=== PATIENT | male | born 1955 | race African-American/Black ===

== ENCOUNTER 2023-06-17 13:23 | Outpatient (OUT) | payer OTHER, MEDICARE, SELFPAY ==
[2023-06-17 14:21] LABS: Basophils Absolute Auto 0.1 10^3/uL (0.0-0.1); Basophils Percent Auto 1.2 % (0.2-2.0); Eosinophils Absolute Auto 0.2 10^3/uL (0.0-0.7); Eosinophils Percent Auto 3.6 % (0.9-7.0); Hematocrit 42.4 % (42.0-54.0); Hemoglobin 14.3 g/dL (14.0-18.0); Immature Granulocytes Abs Auto 0.01 10^3/uL (0.00-0.03); Immature Granulocytes Pct Auto 0.2 % (0.0-0.5); Lymphocytes Absolute Auto 2.1 10^3/uL (1.2-3.8); Mean Corpuscular HGB Conc 33.7 g/dL (29.9-35.2); Mean Corpuscular Hemoglobin 28.7 pg (25.9-34.0); Mean Corpuscular Volume 85.1 fL (80.0-94.0); Mean Platelet Volume 10.6 fL (9.5-13.5); Monocytes Absolute Auto 0.5 10^3/uL (0.3-0.8); Monocytes Percent Auto 7.9 % (1.7-12.0); Neutrophils Absolute Auto 3.1 10^3/uL (1.4-6.5); Neutrophils Percent Auto 52.1 % (43.0-75.0); Platelet Count 173 10^3/uL (150-450); Red Blood Count 4.98 10^6/uL (4.70-6.10); Red Cell Distribution Width 13.2 % (11.0-15.0); White Blood Count 5.9 10^3/uL (4.0-11.0)
[2023-06-17 15:13] LABS: Alanine Aminotransferase 35 U/L (16-63); Albumin Globulin Ratio 1.1; Albumin Level 4.1 g/dL (3.4-5.0); Alkaline Phosphatase 96 U/L (46-116); Anion Gap 13.3; Aspartate Amino Transferase 17 U/L (15-37); BUN Creatinine Ratio 14.7; Bilirubin Direct 0.2 mg/dL (0.0-0.2); Bilirubin Total 0.7 mg/dL (0.2-1.0); Calcium 9.3 mg/dL (8.5-10.1); Carbon Dioxide 29.7 mmol/L (21.0-32.0); Chloride 95 mmol/L (98-107); Chol HDL Ratio 2.5; Cholesterol 113 mg/dL (<=200); Estimated GFR (African America >60 (>=60); Estimated GFR (Non-African Ame 56 (>=60); Globulin 3.9 g/dL; Glucose 395 mg/dL (74-106); HDL Cholesterol 46 mg/dL (40-60); LDL Cholesterol Calculated 47.8 mg/dL; Sodium 134 mmol/L (136-145); Thyroid Stimulating Hormone 1.079 uIU/mL (0.358-3.740); Triglycerides 96 mg/dL (<=150); VLDL CHOLESTEROL 19.2 mg/dL
[2023-06-17 15:22] LABS: Estimated Average Glucose 318 mg/dL; Glycohemoglobin A1C 12.7 % (4.5-6.2)
== END 2023-06-17 13:24 | disposition home or self-care (01) ==
LOC: LAB 13:26
PROVIDERS: PCP Family Medicine; Visit Provider Family Medicine
DX: E11.65 Type 2 diabetes mellitus with hyperglycemia (principal); I10 Essential (primary) hypertension; Z79.899 Other long term (current) drug therapy; E55.9 Vitamin D deficiency, unspecified; E66.9 Obesity, unspecified; Z68.30 Body mass index [BMI] 30.0-30.9, adult
CPT/HCPCS: 36415; 80048; 80061; 80076; 82043; 82306; 83036; 84443; 85025

== ENCOUNTER 2023-07-16 18:13 | Observation (INO) | payer OTHER, MEDICARE, SELFPAY ==
[2023-07-16] VITALS (9 sets, daily range): BP systolic 111–184; BP diastolic 58–90; PULSE 70–82; RESP 13–18; TEMP 36.9–37; O2SAT 95–100; BMI 25.5; BMI 39.8
--- NOTE | 2023-07-16 18:28 | CT_ITS ---
The [address] [address] Patient Name: EUNICE FREEMAN MRN: [id number] date: 1955 Sex: M Assigned Patient Location: ED.MAIN Current Patient Location: Accession/Order Number: [id number] Exam Date: 07/16/2023 18:50 Report Date: 07/16/2023 19:48 At the request of: JAYY HENDERSON Procedure: CT stroke head/brain wo con CT stroke head/brain wo con, 07/16/2023 6:50 PM EST INDICATION: confusion [place] COMPARISON: 06/05/2019. TECHNIQUE: Axial CT images of the brain from skull base to vertex, including portions of the face and sinuses, were obtained without contrast. Multiplanar reformatted images were generated and reviewed as needed. Dose reduction techniques were achieved by using automated exposure control and/or adjustment of mA and/or kV according to patient size and/or use of iterative reconstruction technique. FINDINGS: CEREBRUM: Age-appropriate atrophy is present, without visible acute hemorrhage or lesion. Periventricular low density change is demonstrated, consistent with chronic small vessel disease. Foci of CSF density are seen in the bilateral basal ganglia, stable compared with prior examination. Also, a focus of encephalomalacia is seen in left frontal lobe, stable in appearance. CEREBELLUM: No edema, hemorrhage, mass, acute infarction, or inappropriate atrophy. BRAINSTEM: No acute infarct, hemorrhage or gross structural abnormality. CSF SPACES: Ventricles, cisterns, and sulci are appropriate for age. No hydrocephalus, subarachnoid hemorrhage, or mass. SKULL: No mass or other significant visible lesion. SINUSES: Limited views demonstrate no significant mucosal thickening or fluid. ORBITS: Limited views are unremarkable. OTHER: None. CT/CT stroke head/brain wo con IMPRESSION: Age-related deep white matter changes consistent with chronic small vessel disease superimposed on overall findings of age-appropriate cortical atrophy. Foci of CSF density in the bilateral basal ganglia consistent with remote infarcts. Left frontal focus of encephalomalacia consistent with remote infarct. No acute intracranial abnormality is otherwise identified. Critical results were NOTIFIED by TELEPHONE BY Dr. Jennifer Greene MD to Dr. Grover At 07/16/2023 7:42 PM EST. Electronically authenticated by: Jennifer GREENE Date: 07/16/2023 19:48
--- NOTE | 2023-07-16 18:29 | XR_ITS ---
The [address] [address] Patient Name: EUNICE FREEMAN MRN: [id number] date: 1955 Sex: M Assigned Patient Location: ED.MAIN Current Patient Location: ER Accession/Order Number: [id number] Exam Date: 07/16/2023 18:55 Report Date: 07/16/2023 19:41 At the request of: JAYY HENDERSON Procedure: XR chest 2V EXAM: XR chest 2V HISTORY: Confusion COMPARISON: 06/06/2022 TECHNIQUE: Frontal and lateral views FINDINGS: The cardiovascular silhouette is normal. A loop recorder is again noted. Lung hernandes are well-expanded and clear. Pleural spaces are clear. The bony structures are unremarkable. XR/XR chest 2V IMPRESSION: No evidence for acute cardiopulmonary disease. Electronically authenticated by: Jennifer COLLAZO Date: 07/16/2023 19:41
--- NOTE | 2023-07-16 18:30 | ECG_ITS ---
The [facility] Test Date: 2023-07-16 Pat Name: EUNICE FREEMAN Department: Room: - Gender: Male Privacy Officer: : 1955 Requested By: KEILA SALAZAR Order Number: [id number] Reading MD: GUANAKO BOWMAN Measurements Intervals [place] Rate: 72 P: 49 W[place]: 228 QRS: 3 QRSD: 84 T: 65 QT: 360 QTc: 383 Interpretive Statements 1100 Sinus rhythm 2231 First degree AV block 4068 Nonspecific [place] abnormality 8102 Low QRS voltage in chest leads 9150 abnormal ECG No previous ECG available for comparison Electronically Signed On 07-17-2023 11:30:04 EST by GUANAKO BOWMAN
--- NOTE | 2023-07-16 18:31 | ED_ITS ---
Documented by User: ROSIO Lobo 07/16/23 20:02 HPI - Weakness General Chief complaint: Weakness Stated complaint: WEAKNESS Time Seen by Provider: 07/16/23 18:23 Source: patient Mode of arrival: ambulance History of Present Illness HPI Narrative: Patient is a 67-year-old male who presents to the emergency department by ambulance from [place] where he is a resident for the evaluation of an episode of sweating and dozing off . Patient states he was sitting at a table drinking a soda when he felt sweaty, family reports that for several minutes the patient was dozing off and was less responsive although he stayed upright and was breathing on his own. He had no falls or injuries. Patient denies chest pain, shortness of breath. He has not had any fevers, nausea, vomiting. He is currently receiving radiation for prostate cancer but does not receive chemotherapy. He has had a previous heart attack and reports a stroke 8 years ago, they do not remember what symptoms he had with this. His value analyst and oncologist are through [facility]. This episode occurred at 1800, lasted 2 to 3 minutes according to daughter at bedside. Patient is back at baseline at this time. Related Data Home Medications Medication Instructions Recorded Confirmed amlodipine 10 mg tablet 10 mg PO DAILY 07/16/23 07/16/23 calcium carbonate 600 mg-vitamin 1 tab PO DAILY 07/16/23 07/16/23 D3 10 mcg (400 unit) tablet calcium polycarbophil 625 mg 1,250 mg PO DAILY 07/16/23 07/16/23 tablet (FiberCon) cholecalciferol (vitamin D3) 50 50 mcg PO DAILY 07/16/23 07/16/23 mcg (2,000 unit) tablet ezetimibe 10 mg tablet 10 mg PO QAM 07/16/23 07/16/23 glipizide 10 mg tablet 10 mg PO BID 07/16/23 07/16/23 insulin lispro protamine-lispro 35 unit subcut BID 07/16/23 07/16/23 100 unit/mL (75-25) subcutaneous pen (Humalog Mix 75-25 KwikPen) lisinopril 20 1 tab PO BID 07/16/23 07/16/23 mg-hydrochlorothiazide 12.5 mg tablet metformin 500 mg tablet,extended 500 mg PO BID 07/16/23 07/16/23 release 24 hr metoprolol succinate 50 mg 50 mg PO QAM 07/16/23 07/16/23 tablet,extended release 24 hr montelukast 10 mg tablet 10 mg PO DAILY 07/16/23 07/16/23 oxybutynin chloride 5 mg 5 mg PO QPM 07/16/23 07/16/23 tablet,extended release 24 hr pioglitazone 30 mg tablet 30 mg PO DAILY 07/16/23 07/16/23 relugolix 120 mg tablet (Orgovyx) 120 mg PO DAILY 07/16/23 07/16/23 rosuvastatin 40 mg tablet 40 mg PO QAM 07/16/23 07/16/23 tamsulosin 0.4 mg capsule 0.4 mg PO DAILY 07/16/23 07/16/23 Allergies Allergy/AdvReac Type Severity Reaction Status Date / Time Penicillins Allergy Severe Verified 07/16/23 18:23 Review of Systems ROS Constitutional Denies: fever or chills Ears, nose, mouth, and throat Denies: throat pain Cardiovascular Denies: chest pain Respiratory Denies: shortness of breath or cough Gastrointestinal Denies: nausea, vomiting, diarrhea or constipation Genitourinary Denies: painful urination Musculoskeletal Denies: back pain Integumentary/Breast Denies: rash Neurological Denies: headache PFSH [facility] Medical History (Updated 07/16/23 @ 20:02 by ROSIO Lobo) Diabetes ?E11.9 - Type 2 diabetes mellitus without complications (ICD-10) High cholesterol ?E78.00 - Pure hypercholesterolemia, unspecified (ICD-10) Hypertension ?I10 - Essential (primary) hypertension (ICD-10) Prostate CA ?C61 - Malignant neoplasm of prostate (ICD-10) Exam Narrative Exam Narrative: Gen.: Awake, alert, in no distress Head: Normocephalic, atraumatic ENT: Moist mucous membranes Respiratory: No respiratory distress, lungs clear bilaterally Cardio: Regular rate and rhythm Gastrointestinal: Abdomen is soft, nondistended and nontender to palpation Extremities: Moves extremities equally, no injuries noted Psych: Normal mood and affect Neuro: No focal neuro deficit; alert and oriented to person, place, time, no focal neuro deficits. Clear speech. Skin: Warm, dry, intact Constitutional Vital Signs, click to edit/add: Last Vital Signs Temp 98.5 F 07/16/23 18:14 Pulse 79 07/16/23 19:08 Resp 14 07/16/23 19:08 BP 111/58 07/16/23 19:08 Pulse Ox 100 07/16/23 19:08 O2 Del Method Room Air 07/16/23 18:14 Course Vital Signs Vital signs: Vital Signs Temperature 98.5 F 07/16/23 18:14 Pulse Rate 79 07/16/23 18:14 Respiratory Rate 16 07/16/23 18:14 Blood Pressure 130/60 07/16/23 18:14 Pulse Oximetry 98 07/16/23 18:14 Oxygen Delivery Method Room Air 07/16/23 18:14 Temperature 98.5 F 07/16/23 18:14 Pulse Rate 79 07/16/23 19:08 Respiratory Rate 14 07/16/23 19:08 Blood Pressure 111/58 07/16/23 19:08 Pulse Oximetry 100 07/16/23 19:08 Oxygen Delivery Method Room Air 07/16/23 18:14 MDM - Weakness MDM Narrative Medical decision making narrative: Lab studies, urine were obtained. Patient was treated with IV fluids from EMS, he received a full liter of normal saline that was started by EMS prior to arrival. He was sent for a stroke protocol CT of the brain as well as a chest x-ray. No EKG changes. Patient with no significant focal medical complaints in the emergency department. He has stable vital signs with no tachycardia or fever. Radiologist contacted Dr. Grover directly to report old ischemic changes and remote infarct with no evidence of acute process. Chest x-ray is unremarkable, urine specimen is pending at this time. Case is turned over to attending physician at 1999 for reevaluation and disposition. Medical Records Attestation: I reviewed the patient's medical records. Lab Data Attestation: I reviewed the patient's lab results. Labs: Lab Results 07/16/23 07/16/23 Range/Units 18:41 19:41 WBC 5.2 (4.0-11.0) 10^3/uL RBC 4.33 L (4.70-6.10) 10^6/uL Hgb 12.2 L (14.0-18.0) g/dL Hct 38.0 L (42.0-54.0) % MCV 87.8 (80.0-94.0) fL MCH 28.2 (25.9-34.0) pg MCHC 32.1 (29.9-35.2) g/dL RDW 13.8 (11.0-15.0) % Plt Count 141 L (150-450) 10^3/uL MPV 10.3 (9.5-13.5) fL Neut % (Auto) 54.9 (43.0-75.0) % Lymph % (Auto) 26.3 (20.5-60.0) % Banks % (Auto) 11.4 (1.7-12.0) % Eos % (Auto) 5.8 (0.9-7.0) % Baso % (Auto) 1.0 (0.2-2.0) % Neut # (Auto) 2.8 (1.4-6.5) 10^3/uL Lymph # (Auto) 1.4 (1.2-3.8) 10^3/uL Banks # (Auto) 0.6 (0.3-0.8) 10^3/uL Eos # (Auto) 0.3 (0.0-0.7) 10^3/uL Baso # (Auto) 0.1 (0.0-0.1) 10^3/uL Abs Immat Gran (auto) 0.03 (0.00-0.03) 10^3/uL Imm/Tot Granulo (auto) 0.6 H (0.0-0.5) % PT 10.3 (9.0-11.6) sec INR 0.97 Sodium 136 (136-145) mmol/L Potassium 3.6 (3.5-5.1) mmol/L Chloride 95 L (98-107) mmol/L Carbon Dioxide 30.6 (21.0-32.0) mmol/L Anion Gap 14.0 BUN 18.0 (7.0-18.0) mg/dL Creatinine 1.08 (0.70-1.30) mg/dL Est GFR ( Amer) >60 (>=60) Est GFR (Non-Af Amer) >60 (>=60) BUN/Creatinine Ratio 16.7 Glucose 356 H (74-106) mg/dL Lactate 2.2 H* (0.4-2.0) mmol/L Calcium 8.8 (8.5-10.1) mg/dL Total Bilirubin 0.4 (0.2-1.0) mg/dL AST 23 (15-37) U/L ALT 47 (16-63) U/L Alkaline Phosphatase 85 (46-116) U/L Troponin I High Sens 63.1 (4.0-76.1) pg/mL Total Protein 7.7 (6.4-8.2) g/dL Albumin 3.9 (3.4-5.0) g/dL Globulin 3.8 g/dL Albumin/Globulin Ratio 1.0 TSH 2.167 (0.358-3.740) uIU/mL Urine Color Lt. yellow (YELLOW) Urine Clarity Clear (CLEAR) Urine pH 5.5 (5.0-9.0) Ur Specific [place] 1.020 (1.005-1.025) Urine Protein Negative (NEG/TRACE) mg/dL Urine Glucose (UA) >=1000 A (NEGATIVE) mg/dL Urine Ketones Trace A (NEGATIVE) mg/dL Urine Occult Blood Trace-i (NEGATIVE) Urine Nitrite Negative (NEGATIVE) Urine Bilirubin Negative (NEGATIVE) Urine Urobilinogen 0.2 (0.2-1.0) EU/dL Ur Leukocyte Esterase Negative (NEGATIVE) Urine RBC 0-2 (0-2) #/HPF Urine WBC None seen (NONE SEEN) #/HPF Ur Squamous Epith Cells None seen (NONE/RARE) #/LPF Urine Crystals None seen (None Seen) #/HPF Urine Bacteria None seen (NONE SEEN) #/HPF Urine Casts None seen (NONE SEEN) #/LPF Urine Mucus None seen (NONE SEEN) Ur Culture Indicated? No Acetone, Qual Negative (NEGATIVE) Imaging Data Chest x-ray: Attestation: I have reviewed the pertinent imaging results. Radiologist's impression: Procedure: XR chest 2V EXAM: XR chest 2V HISTORY: Confusion COMPARISON: 06/06/2022 TECHNIQUE: Frontal and lateral views FINDINGS: The cardiovascular silhouette is normal. A loop recorder is again noted. Lung hernandes are well-expanded and clear. Pleural spaces are clear. The bony structures are unremarkable. IMPRESSION: No evidence for acute cardiopulmonary disease. Electronically authenticated by: Jennifer GREENE Date: 07/16/2023 19:41 CT scan - head: Attestation: I have reviewed the pertinent imaging results. Radiologist's impression: Procedure: CT stroke head/brain wo con CT stroke head/brain wo con, 07/16/2023 6:50 PM EST INDICATION: confusion [place] COMPARISON: 06/05/2019. TECHNIQUE: Axial CT images of the brain from skull base to vertex, including portions of the face and sinuses, were obtained without contrast. Multiplanar reformatted images were generated and reviewed as needed. Dose reduction techniques were achieved by using automated exposure control and/or adjustment of mA and/or kV according to patient size and/or use of iterative reconstruction technique. FINDINGS: CEREBRUM: Age-appropriate atrophy is present, without visible acute hemorrhage or lesion. Periventricular low density change is demonstrated, consistent with chronic small vessel disease. Foci of CSF density are seen in the bilateral basal ganglia, stable compared with prior examination. Also, a focus of encephalomalacia is seen in left frontal lobe, stable in appearance. CEREBELLUM: No edema, hemorrhage, mass, acute infarction, or inappropriate atrophy. BRAINSTEM: No acute infarct, hemorrhage or gross structural abnormality. CSF SPACES: Ventricles, cisterns, and sulci are appropriate for age. No hydrocephalus, subarachnoid hemorrhage, or mass. SKULL: No mass or other significant visible lesion. SINUSES: Limited views demonstrate no significant mucosal thickening or fluid. ORBITS: Limited views are unremarkable. OTHER: None. IMPRESSION: Age-related deep white matter changes consistent with chronic small vessel disease superimposed on overall findings of age-appropriate cortical atrophy. Foci of CSF density in the bilateral basal ganglia consistent with remote infarcts. Left frontal focus of encephalomalacia consistent with remote infarct. No acute intracranial abnormality is otherwise identified. Critical results were NOTIFIED by TELEPHONE BY Dr. Jennifer Greene MD to Dr. Grover At 07/16/2023 7:42 PM EST. Electronically authenticated by: Jennifer GREENE Date: 07/16/2023 19:48 ECG Data Attestation: I personally reviewed and interpreted this ECG as follows: (Normal sinus rhythm at a rate of 72, first-degree AV block with no acute ST elevation or ectopy. EKG reviewed by attending physician) ECG interpretation date: 07/16/23 ECG interpretation time: 18:51 Discharge Plan Discharge Chief Complaint: Weakness Clinical Impression: Weakness Patient Disposition: Still a Patient Time of Disposition Decision: 20:12 Documented by User: Angel Grover 07/16/23 20:33 HPI - Weakness General Chief complaint: Weakness Stated complaint: WEAKNESS Time Seen by Provider: 07/16/23 18:23 Related Data Home Medications Medication Instructions Recorded Confirmed amlodipine 10 mg tablet 10 mg PO DAILY 07/16/23 07/16/23 calcium carbonate 600 mg-vitamin 1 tab PO DAILY 07/16/23 07/16/23 D3 10 mcg (400 unit) tablet calcium polycarbophil 625 mg 1,250 mg PO DAILY 07/16/23 07/16/23 tablet (FiberCon) cholecalciferol (vitamin D3) 50 50 mcg PO DAILY 07/16/23 07/16/23 mcg (2,000 unit) tablet ezetimibe 10 mg tablet 10 mg PO QAM 07/16/23 07/16/23 glipizide 10 mg tablet 10 mg PO BID 07/16/23 07/16/23 insulin lispro protamine-lispro 35 unit subcut BID 07/16/23 07/16/23 100 unit/mL (75-25) subcutaneous pen (Humalog Mix 75-25 KwikPen) lisinopril 20 1 tab PO BID 07/16/23 07/16/23 mg-hydrochlorothiazide 12.5 mg tablet metformin 500 mg tablet,extended 500 mg PO BID 07/16/23 07/16/23 release 24 hr metoprolol succinate 50 mg 50 mg PO QAM 07/16/23 07/16/23 tablet,extended release 24 hr montelukast 10 mg tablet 10 mg PO DAILY 07/16/23 07/16/23 oxybutynin chloride 5 mg 5 mg PO QPM 07/16/23 07/16/23 tablet,extended release 24 hr pioglitazone 30 mg tablet 30 mg PO DAILY 07/16/23 07/16/23 relugolix 120 mg tablet (Orgovyx) 120 mg PO DAILY 07/16/23 07/16/23 rosuvastatin 40 mg tablet 40 mg PO QAM 07/16/23 07/16/23 tamsulosin 0.4 mg capsule 0.4 mg PO DAILY 07/16/23 07/16/23 Allergies Allergy/AdvReac Type Severity Reaction Status Date / Time Penicillins Allergy Severe Verified 07/16/23 18:23 [facility] Medical History (Updated 07/16/23 @ 20:02 by ROSIO Lobo) Diabetes ?E11.9 - Type 2 diabetes mellitus without complications (ICD-10) High cholesterol ?E78.00 - Pure hypercholesterolemia, unspecified (ICD-10) Hypertension ?I10 - Essential (primary) hypertension (ICD-10) Prostate CA ?C61 - Malignant neoplasm of prostate (ICD-10) Exam Constitutional Vital Signs, click to edit/add: Last Vital Signs Temp 98.5 F 07/16/23 18:14 Pulse 79 07/16/23 19:08 Resp 14 07/16/23 19:08 BP 111/58 07/16/23 19:08 Pulse Ox 100 07/16/23 19:08 O2 Del Method Room Air 07/16/23 18:14 Course Vital Signs Vital signs: Vital Signs Temperature 98.5 F 07/16/23 18:14 Pulse Rate 79 07/16/23 18:14 Respiratory Rate 16 07/16/23 18:14 Blood Pressure 130/60 07/16/23 18:14 Pulse Oximetry 98 07/16/23 18:14 Oxygen Delivery Method Room Air 07/16/23 18:14 Temperature 98.5 F 07/16/23 18:14 Pulse Rate 79 07/16/23 19:08 Respiratory Rate 14 07/16/23 19:08 Blood Pressure 111/58 07/16/23 19:08 Pulse Oximetry 100 07/16/23 19:08 Oxygen Delivery Method Room Air 07/16/23 18:14 MDM - Weakness MDM Narrative Medical decision making narrative: Lab studies, urine were obtained. Patient was treated with IV fluids from EMS, he received a full liter of normal saline that was started by EMS prior to arrival. He was sent for a stroke protocol CT of the brain as well as a chest x-ray. No EKG changes. Patient with no significant focal medical complaints in the emergency department. He has stable vital signs with no tachycardia or f ever. Radiologist contacted Dr. Grover directly to report old ischemic changes and remote infarct with no evidence of acute process. Chest x-ray is unremarkable, urine specimen is pending at this time. Case is turned over to attending physician at 1999 for reevaluation and disposition. Patient's workup yields elevated glucose, elevated lactate without source of infection and both glucose and ketones in the urine with negative acetone. CT stroke did not yield any acute abnormalities - the radiologist spoke with me and noted diffuse WMCs but no ICH, tumor or large area of ischemia. Concern is that the patient may have had a TIA. Case discussed with Dr Ирина Berger, mobile sales consultant telehospitalist, who agreed to admit to Dr Luu's service - the patient's PCP who is also mobile sales consultant this week - darion arroyo, OBS status. All results discussed with patient and family, who are agreeable to admission. Lab Data Labs: Lab Results 07/16/23 07/16/23 Range/Units 18:41 19:41 WBC 5.2 (4.0-11.0) 10^3/uL RBC 4.33 L (4.70-6.10) 10^6/uL Hgb 12.2 L (14.0-18.0) g/dL Hct 38.0 L (42.0-54.0) % MCV 87.8 (80.0-94.0) fL MCH 28.2 (25.9-34.0) pg MCHC 32.1 (29.9-35.2) g/dL RDW 13.8 (11.0-15.0) % Plt Count 141 L (150-450) 10^3/uL MPV 10.3 (9.5-13.5) fL Neut % (Auto) 54.9 (43.0-75.0) % Lymph % (Auto) 26.3 (20.5-60.0) % Banks % (Auto) 11.4 (1.7-12.0) % Eos % (Auto) 5.8 (0.9-7.0) % Baso % (Auto) 1.0 (0.2-2.0) % Neut # (Auto) 2.8 (1.4-6.5) 10^3/uL Lymph # (Auto) 1.4 (1.2-3.8) 10^3/uL [place] # (Auto) 0.6 (0.3-0.8) 10^3/uL Eos # (Auto) 0.3 (0.0-0.7) 10^3/uL Baso # (Auto) 0.1 (0.0-0.1) 10^3/uL Abs Immat Gran (auto) 0.03 (0.00-0.03) 10^3/uL Imm/Tot Granulo (auto) 0.6 H (0.0-0.5) % PT 10.3 (9.0-11.6) sec INR 0.97 Sodium 136 (136-145) mmol/L Potassium 3.6 (3.5-5.1) mmol/L Chloride 95 L (98-107) mmol/L Carbon Dioxide 30.6 (21.0-32.0) mmol/L Anion Gap 14.0 BUN 18.0 (7.0-18.0) mg/dL Creatinine 1.08 (0.70-1.30) mg/dL Est GFR ( Amer) >60 (>=60) Est GFR (Non-Af Amer) >60 (>=60) BUN/Creatinine Ratio 16.7 Glucose 356 H (74-106) mg/dL Lactate 2.2 H* (0.4-2.0) mmol/L Calcium 8.8 (8.5-10.1) mg/dL Total Bilirubin 0.4 (0.2-1.0) mg/dL AST 23 (15-37) U/L ALT 47 (16-63) U/L Alkaline Phosphatase 85 (46-116) U/L Troponin I High Sens 63.1 (4.0-76.1) pg/mL Total Protein 7.7 (6.4-8.2) g/dL Albumin 3.9 (3.4-5.0) g/dL Globulin 3.8 g/dL Albumin/Globulin Ratio 1.0 TSH 2.167 (0.358-3.740) uIU/mL Urine Color Lt. yellow (YELLOW) Urine Clarity Clear (CLEAR) Urine pH 5.5 (5.0-9.0) Ur Specific [place] 1.020 (1.005-1.025) Urine Protein Negative (NEG/TRACE) mg/dL Urine Glucose (UA) >=1000 A (NEGATIVE) mg/dL Urine Ketones Trace A (NEGATIVE) mg/dL Urine Occult Blood Trace-i (NEGATIVE) Urine Nitrite Negative (NEGATIVE) Urine Bilirubin Negative (NEGATIVE) Urine Urobilinogen 0.2 (0.2-1.0) EU/dL Ur Leukocyte Esterase Negative (NEGATIVE) Urine RBC 0-2 (0-2) #/HPF Urine WBC None seen (NONE SEEN) #/HPF Ur Squamous Epith Cells None seen (NONE/RARE) #/LPF Urine Crystals None seen (None Seen) #/HPF Urine Bacteria None seen (NONE SEEN) #/HPF Urine Casts None seen (NONE SEEN) #/LPF Urine Mucus None seen (NONE SEEN) Ur Culture Indicated? No Acetone, Qual Negative (NEGATIVE) Discharge Plan Discharge Chief Complaint: Weakness Clinical Impression: Weakness Patient Disposition: Still a Patient Time of Disposition Decision: 20:12
[2023-07-16 18:58] LABS: Basophils Absolute Auto 0.1 10^3/uL (0.0-0.1); Eosinophils Absolute Auto 0.3 10^3/uL (0.0-0.7); Eosinophils Percent Auto 5.8 % (0.9-7.0); Hemoglobin 12.2 g/dL (14.0-18.0); Immature Granulocytes Abs Auto 0.03 10^3/uL (0.00-0.03); Immature Granulocytes Pct Auto 0.6 % (0.0-0.5); Lymphocytes Absolute Auto 1.4 10^3/uL (1.2-3.8); Lymphocytes Percent Auto 26.3 % (20.5-60.0); Mean Corpuscular HGB Conc 32.1 g/dL (29.9-35.2); Mean Corpuscular Hemoglobin 28.2 pg (25.9-34.0); Mean Corpuscular Volume 87.8 fL (80.0-94.0); Mean Platelet Volume 10.3 fL (9.5-13.5); Monocytes Absolute Auto 0.6 10^3/uL (0.3-0.8); Monocytes Percent Auto 11.4 % (1.7-12.0); Neutrophils Absolute Auto 2.8 10^3/uL (1.4-6.5); Neutrophils Percent Auto 54.9 % (43.0-75.0); Platelet Count 141 10^3/uL (150-450); Red Blood Count 4.33 10^6/uL (4.70-6.10); Red Cell Distribution Width 13.8 % (11.0-15.0); White Blood Count 5.2 10^3/uL (4.0-11.0)
[2023-07-16 19:03] LABS: INR 0.97; Prothrombin Time 10.3 sec (9.0-11.6)
[2023-07-16 19:16] LABS: Alanine Aminotransferase 47 U/L (16-63); Albumin Level 3.9 g/dL (3.4-5.0); Alkaline Phosphatase 85 U/L (46-116); Aspartate Amino Transferase 23 U/L (15-37); BUN Creatinine Ratio 16.7; Bilirubin Total 0.4 mg/dL (0.2-1.0); Calcium 8.8 mg/dL (8.5-10.1); Carbon Dioxide 30.6 mmol/L (21.0-32.0); Chloride 95 mmol/L (98-107); Estimated GFR (African America >60 (>=60); Estimated GFR (Non-African Ame >60 (>=60); Globulin 3.8 g/dL; Glucose 356 mg/dL (74-106); Potassium 3.6 mmol/L (3.5-5.1); Sodium 136 mmol/L (136-145); Thyroid Stimulating Hormone 2.167 uIU/mL (0.358-3.740); Total Protein 7.7 g/dL (6.4-8.2); Troponin I High Sensitivity 63.1 pg/mL (4.0-76.1)
[2023-07-16 19:18] LABS: Lactate/Lactic Acid 2.2 mmol/L (0.4-2.0)
[2023-07-16 20:09] LABS: Bilirubin Urine NEGATIVE (NEGATIVE); Blood Urine TRACE-I (NEGATIVE); Clarity Urine CLEAR (CLEAR); Color Urine LT. YELLOW (YELLOW); Glucose Urine UA >=1000 mg/dL (NEGATIVE); Ketones Urine TRACE mg/dL (NEGATIVE); Leukocyte Esterase Urine NEGATIVE (NEGATIVE); Nitrite Urine NEGATIVE (NEGATIVE); Protein Urine NEGATIVE (NEG/TRACE); Urobilinogen Urine 0.2 EU/dL (0.2-1.0); pH Urine 5.5 (5.0-9.0)
[2023-07-16 20:13] LABS: Acetone NEGATIVE (NEGATIVE)
[2023-07-16 20:14] LABS: Urine Microscopic Indicated YES
[2023-07-16 20:21] LABS: Bacteria Urine NONE SEEN #/HPF (NONE SEEN); Mucus Urine NONE SEEN (NONE SEEN); RBC Urine 0-2 #/HPF (0-2); WBC Urine NONE SEEN #/HPF (NONE SEEN)
[2023-07-16 20:22] LABS: Cast Seen? NONE SEEN #/LPF (NONE SEEN); Crystals Seen? None Seen #/HPF (None Seen); Squamous Epithelial Cell Urine NONE SEEN #/LPF (NONE/RARE); Urine Culture Indicated NO
[2023-07-16 22:01] LABS: Glucometer 284 mg/dL (74-106)
[2023-07-16 22:20] LABS: Lactate/Lactic Acid 1.6 mmol/L (0.4-2.0)
--- NOTE | 2023-07-16 23:06 | P.PN_ITS ---
Progress Note: Subjective Subjective Interval history: Is a 67-year-old male with a history of diabetes and hypertension, as well as prostate cancer, who was in his usual state of health until earlier today. He was with his family, eating dinner and then suddenly became diaphoretic and had a near syncopal episode. The patient denies any new medications, any recent sick contacts, recent stress, recent travel or anything else unusual. He was brought to the emergency room and was back to his baseline. He underwent a noncontrast head CT which was negative. He is being admitted for observation for near syncope. Exam Narrative Exam Narrative: General : Alert and oriented x3 HEENT : Extraocular movements intact, pupils equal round and reactive to light and accommodation Neck: Supple, no JVD Chest: Clear to auscultation bilaterally, no wheezes Heart: Regular rate and rhythm, S1 and S2 heard Abdomen: Soft nontender nondistended. Extremities: No clubbing cyanosis or edema Neurologically: Moving all 4 extremities Skin: No rashes Constitutional Vital Signs, click to edit/add: Last Vital Signs Temp 98.6 F 07/16/23 21:07 Pulse 74 07/16/23 21:07 Resp 13 07/16/23 21:07 BP 184/90 H 07/16/23 21:07 Pulse Ox 100 07/16/23 21:07 O2 Del Method Room Air 07/16/23 21:07 Progress Note: Objective Labs Labs: Short CBC 07/16/23 Range/Units 18:41 WBC 5.2 (4.0-11.0) 10^3/uL Hgb 12.2 L (14.0-18.0) g/dL Hct 38.0 L (42.0-54.0) % Plt Count 141 L (150-450) 10^3/uL BMP 07/16/23 18:41 Sodium 136 Potassium 3.6 Chloride 95 L Carbon Dioxide 30.6 BUN 18.0 Creatinine 1.08 Glucose 356 H Calcium 8.8 Liver Function 07/16/23 Range/Units 18:41 Total Bilirubin 0.4 (0.2-1.0) mg/dL AST 23 (15-37) U/L ALT 47 (16-63) U/L Alkaline Phosphatase 85 (46-116) U/L Albumin 3.9 (3.4-5.0) g/dL Urine 07/16/23 Range/Units 19:41 Urine Color Lt. yellow (YELLOW) Urine Clarity Clear (CLEAR) Urine pH 5.5 (5.0-9.0) Ur Specific [place] 1.020 (1.005-1.025) Urine Protein Negative (NEG/TRACE) mg/dL Urine Glucose (UA) >=1000 A (NEGATIVE) mg/dL Progress Note: A&P Assessment and Plan (1) Near syncope: Plan The patient is a 67-year-old male with above medical problems, presenting with near syncope. Near syncope -Could have been a vasovagal reaction -Patient's blood sugar was actually elevated on arrival -Patient is on multiple antihypertensives -Give gentle IV fluids -Check orthostatics -Monitor on telemetry to look for underlying arrhythmia Diabetes -Continue home regimen -Add sliding scale coverage Hypertension -Continue home medications BPH -Remains on Flomax Alcohol dependence -Patient states that he drinks 2-3 beers per day, he only had 1 alcoholic beverage earlier today -Monitor for any detox symptoms DVT Prophylaxis -Lovenox, SCDs Medication review -Medication reconciliation form completed Goals of care -Full code Communications -Discussed with the emergency room physician -Discussed with the bedside nurse -Patient updated of plan of care, all questions answered to their satisfaction Disposition -PT/OT evaluation - Home when medically stable Telemedicine clause -As the provider of this telehealth evaluation, requested by the patient's evaluating physician, I attest that I introduced myself to the patient, provided my credentials and determined that telemedicine via a real-time, two-way interactive audio and video platform is an appropriate and effective means of providing this service. -I reviewed the patient's chart and had a discussion with the member of the patient's treatment team. -The patient and I mutually agreed with continuation of this evaluation via telemedicine. The patient consented for the telemedicine evaluation. -This virtual encounter was taken place from [place], [place]. The encounter was approximately 35 minutes. The nurse was present during the entire time of the encounter and was able to remove the stethoscope and appropriate directions. The patient was evaluated at [facility] Telemedicine Attestation Telemedicine Attestation I conducted this encounter from [] via secure live, [id number]-er-sbyd video conference with the patient, located at [facility] with []. Prior to the interview, the risks and benefits of telemedicine were discussed with the patient and verbal consent was obtained.
[2023-07-16] MEDS: SODIUM CHLORIDE 0.45 % 1,000 ML 75 ML IV (23:39)
[2023-07-16] MEDS: OXYBUTYNIN CHLORIDE 5 MG TAB XL PO (23:41)
[2023-07-17] VITALS (59 sets, daily range): BP systolic 132–168; BP diastolic 65–95; PULSE 57–86; RESP 5–26; TEMP 36.6; O2SAT 95–99
--- NOTE | 2023-07-17 01:53 | PC.NURSE ---
Patient has been rude and uncooperative with his care. He has refused the insulin,SCD,and Lovenox injection. I explained the importance of taking the Lovenox d/t his history of having a stroke and he is currently admitted for TIA. Patient still refuses. Patient is agitated and wants to be left alone.
[2023-07-17 05:28] LABS: Basophils Absolute Auto 0.1 10^3/uL (0.0-0.1); Basophils Percent Auto 0.9 % (0.2-2.0); Eosinophils Absolute Auto 0.3 10^3/uL (0.0-0.7); Eosinophils Percent Auto 4.9 % (0.9-7.0); Hematocrit 32.4 % (42.0-54.0); Hemoglobin 10.5 g/dL (14.0-18.0); Immature Granulocytes Abs Auto 0.02 10^3/uL (0.00-0.03); Immature Granulocytes Pct Auto 0.3 % (0.0-0.5); Lymphocytes Absolute Auto 1.8 10^3/uL (1.2-3.8); Lymphocytes Percent Auto 31.8 % (20.5-60.0); Mean Corpuscular HGB Conc 32.4 g/dL (29.9-35.2); Mean Corpuscular Hemoglobin 28.4 pg (25.9-34.0); Mean Corpuscular Volume 87.6 fL (80.0-94.0); Mean Platelet Volume 11.6 fL (9.5-13.5); Monocytes Absolute Auto 0.7 10^3/uL (0.3-0.8); Monocytes Percent Auto 12.6 % (1.7-12.0); Neutrophils Absolute Auto 2.8 10^3/uL (1.4-6.5); Neutrophils Percent Auto 49.5 % (43.0-75.0); Platelet Count 127 10^3/uL (150-450); Red Cell Distribution Width 13.9 % (11.0-15.0); White Blood Count 5.7 10^3/uL (4.0-11.0)
[2023-07-17 05:34] LABS: Anion Gap 10.5; Calcium 8.5 mg/dL (8.5-10.1); Carbon Dioxide 32.1 mmol/L (21.0-32.0); Chloride 100 mmol/L (98-107); Estimated GFR (African America >60 (>=60); Estimated GFR (Non-African Ame >60 (>=60); Glucose 216 mg/dL (74-106); Potassium 3.6 mmol/L (3.5-5.1); Sodium 139 mmol/L (136-145)
[2023-07-17 07:57] LABS: Glucometer 178 mg/dL (74-106)
[2023-07-17] MEDS: INSULIN ASPART PROT/INSULN ASP 70/30 300 UNIT/3 ML INSULN.PEN 35 UNIT SUBQ (08:45)
[2023-07-17] MEDS: TAMSULOSIN HCL 0.4 MG CAPSULE PO (08:47)
[2023-07-17] MEDS: EZETIMIBE 10 MG TABLET PO (08:47)
[2023-07-17] MEDS: CALCIUM CARBONATE 600 MG/VITAMIN D3 400 IU TABLET 1 TAB PO (08:47)
[2023-07-17] MEDS: PIOGLITAZONE 15 MG TABLET 30 MG PO (08:47)
[2023-07-17] MEDS: METFORMIN HCL 500 MG TAB.ER.24H PO (08:48)
[2023-07-17] MEDS: AMLODIPINE BESYLATE 5 MG TABLET 10 MG PO (08:48)
[2023-07-17] MEDS: CHOLECALCIFEROL (VITAMIN D3) 25 MCG/1,000 UNITS TABLET 50 MCG PO (08:48)
[2023-07-17] MEDS: CALCIUM POLYCARBOPHIL 625 MG TABLET 1250 MG PO (08:49)
[2023-07-17] MEDS: MONTELUKAST SODIUM 10 MG TABLET PO (08:49)
[2023-07-17] MEDS: GLIPIZIDE 10 MG TABLET PO (08:49)
[2023-07-17] MEDS: METOPROLOL SUCCINATE 50 MG TAB.ER.24H PO (08:49)
[2023-07-17] MEDS: LISINOPRIL/HYDROCHLOROTHIAZIDE 20-12.5 MG TABLET 1 TAB PO (08:49)
--- NOTE | 2023-07-17 10:38 | PM.HP ---
H&P: HPI History of Present Illness Chief complaint: Weakness, near syncope Narrative: 67 y/o male with a history of DM and CVA to ER with weakness and near syncopal episode. Currently getting radiation for prostate cancer but no chemo. Patient was sitting at the table eating candy and drinking Pepsi. Suddenly broke out in sweak and very tired. Had near syncopal episode and seemed like would pass out but did not fall and remained sitting up with normal respirations. Episode lasted 2-3 minutes. Reports BS was over 400. EMS arrived and gave 1 L fluid on route to ER. Back to baseline by time EMS arrived and no further symptoms. Labs showed glucose 356 and UA with glucose and ketones but otherwise normal. WBC normal. CT head showed old infarcts but no acute change and chest x-ray normal. Admitted for monitoring. Stated IV fluids and resumed home medication. Feels well this am. Normal appetite and eating well. Normal strength and ambulating around room well. Review of Systems ROS Constitutional Denies: fever, chills or night sweats Cardiovascular Denies: chest pain, palpitations or edema Respiratory Denies: shortness of breath, cough or wheezing Gastrointestinal Denies: abdominal pain, nausea, vomiting or diarrhea Genitourinary Denies: painful urination [facility] Medical History (Updated 07/17/23 @ 09:47 by Adilson Luu MD) Diabetes ?E11.9 - Type 2 diabetes mellitus without complications (ICD-10) High cholesterol ?E78.00 - Pure hypercholesterolemia, unspecified (ICD-10) Implantable loop recorder present ?Z95.818 - Presence of other cardiac implants and grafts (ICD-10) Sleep apnea treated with continuous positive airway pressure (CPAP) ?G47.30 - Sleep apnea, unspecified (ICD-10) TIA (transient ischemic attack) ?G45.9 - Transient cerebral ischemic attack, unspecified (ICD-10) Surgical History (Updated 07/16/23 @ 21:27 by Jami Payne RN) H/O left knee surgery ?Z98.890 - Other specified postprocedural states (ICD-10) History of back surgery ?Z98.890 - Other specified postprocedural states (ICD-10) History of shoulder surgery ?Z98.890 - Other specified postprocedural states (ICD-10) Family History (Updated 07/16/23 @ 21:29 by Jami Payne RN) Mother Family history of diabetes mellitus Family history of myocardial infarction Sister Family history of hypertension Social History Highest level of school completed/degree received: decline to answer Do you think of yourself as: decline to answer Gender Identity: decline to answer Meds Home Medications and Allergies Home Medications Medication Instructions Recorded Confirmed Type amlodipine 10 mg tablet 10 mg PO DAILY 07/16/23 07/16/23 History calcium carbonate 600 mg-vitamin 1 tab PO DAILY 07/16/23 07/16/23 History D3 10 mcg (400 unit) tablet calcium polycarbophil 625 mg 1,250 mg PO DAILY 07/16/23 07/16/23 History tablet (FiberCon) cholecalciferol (vitamin D3) 50 50 mcg PO DAILY 07/16/23 07/16/23 History mcg (2,000 unit) tablet ezetimibe 10 mg tablet 10 mg PO QAM 07/16/23 07/16/23 History glipizide 10 mg tablet 10 mg PO BID 07/16/23 07/16/23 History insulin lispro protamine-lispro 35 unit subcut BID 07/16/23 07/16/23 History 100 unit/mL (75-25) subcutaneous pen (Humalog Mix 75-25 KwikPen) lisinopril 20 1 tab PO BID 07/16/23 07/16/23 History mg-hydrochlorothiazide 12.5 mg tablet metformin 500 mg tablet,extended 500 mg PO BID 07/16/23 07/16/23 History release 24 hr metoprolol succinate 50 mg 50 mg PO QAM 07/16/23 07/16/23 History tablet,extended release 24 hr montelukast 10 mg tablet 10 mg PO DAILY 07/16/23 07/16/23 History oxybutynin chloride 5 mg 5 mg PO QPM 07/16/23 07/16/23 History tablet,extended release 24 hr pioglitazone 30 mg tablet 30 mg PO DAILY 07/16/23 07/16/23 History relugolix 120 mg tablet (Orgovyx) 120 mg PO DAILY 07/16/23 07/16/23 History rosuvastatin 40 mg tablet 40 mg PO QAM 07/16/23 07/16/23 History tamsulosin 0.4 mg capsule 0.4 mg PO DAILY 07/16/23 07/16/23 History Allergies Allergy/AdvReac Type Severity Reaction Status Date / Time Penicillins Allergy Severe Verified 07/16/23 18:23 Exam Constitutional Vital Signs, click to edit/add: Last Vital Signs Temp 97.9 F 07/17/23 04:00 Pulse 71 07/17/23 10:20 Resp 15 07/17/23 10:00 BP 132/72 07/17/23 04:07 Pulse Ox 96 07/17/23 06:00 O2 Del Method Room Air 07/17/23 04:00 Documenting provider has reviewed patient's vital signs: yes Common normals: no apparent distress, oriented x3 and alert HENMT Common normals: normocephalic Eye Common normals: PERRL and EOMs intact bilaterally Respiratory Common normals: normal respiratory effort and clear to auscultation bilaterally Cardio Common normals: regular rate, regular rhythm, no gallops, no murmurs and no rub GI Common normals: Normal to inspection, nondistended, normoactive bowel sounds present and non-tender Extremity Common normals: no pedal edema Results Labs Labs: Short CBC 07/16/23 07/17/23 Range/Units 18:41 04:11 WBC 5.2 5.7 (4.0-11.0) 10^3/uL Hgb 12.2 L 10.5 L (14.0-18.0) g/dL Hct 38.0 L 32.4 L (42.0-54.0) % Plt Count 141 L 127 L (150-450) 10^3/uL BMP 07/16/23 07/17/23 18:41 04:11 Sodium 136 139 Potassium 3.6 3.6 Chloride 95 L 100 Carbon Dioxide 30.6 32.1 H BUN 18.0 17.0 Creatinine 1.08 1.00 Glucose 356 H 216 H Calcium 8.8 8.5 Liver Function 07/16/23 Range/Units 18:41 Total Bilirubin 0.4 (0.2-1.0) mg/dL AST 23 (15-37) U/L ALT 47 (16-63) U/L Alkaline Phosphatase 85 (46-116) U/L Albumin 3.9 (3.4-5.0) g/dL Urine 07/16/23 Range/Units 19:41 Urine Color Lt. yellow (YELLOW) Urine Clarity Clear (CLEAR) Urine pH 5.5 (5.0-9.0) Ur Specific [place] 1.020 (1.005-1.025) Urine Protein Negative (NEG/TRACE) mg/dL Urine Glucose (UA) >=1000 A (NEGATIVE) mg/dL Assessment and Plan Assessment and Plan (1) Near syncope: (2) Weakness: (3) Type 2 diabetes mellitus with hyperglycemia: (4) Hypertension: (5) Cerebrovascular disease: (6) Multi-infarct dementia: (7) Prostate CA: Plan Presented after near syncopal episode and had hyperglycemia. Episode likely related to uncontrolled BS. No evidence of acute stroke and normal exam. Stressed need to stick to ADA diet and control BS, A1C in May over 12. Discharge home. Continue home medication without change including insulin. F/u in office in 2-4 weeks.
== END 2023-07-17 12:06 | disposition home or self-care (01) ==
LOC: ER 20:37 → ICU 21:02
PROVIDERS: Physician Assistant; Admitting Provider Internal Medicine; Emergency Provider Emergency Medicine; PCP Family Medicine; Visit Provider Family Medicine
DX: E11.65 Type 2 diabetes mellitus with hyperglycemia (principal); R55 Syncope and collapse; Z86.73 Personal history of transient ischemic attack (TIA), and cerebral infarction without residual deficits; C61 Malignant neoplasm of prostate; Z79.899 Other long term (current) drug therapy; E78.00 Pure hypercholesterolemia, unspecified; G47.30 Sleep apnea, unspecified; Z95.818 Presence of other cardiac implants and grafts; Z79.4 Long term (current) use of insulin; Z79.84 Long term (current) use of oral hypoglycemic drugs; R53.1 Weakness; I67.9 Cerebrovascular disease, unspecified; F01.50 Vascular dementia, unspecified severity, without behavioral disturbance, psychotic disturbance, mood disturbance, and anxiety; I10 Essential (primary) hypertension; N40.0 Benign prostatic hyperplasia without lower urinary tract symptoms; F10.20 Alcohol dependence, uncomplicated; I25.2 Old myocardial infarction
CPT/HCPCS: 36415; 70450; 71046; 80048; 80053; 81001; 82009; 82948; 83605; 84443; 84484; 85025; 85610; 93005; 99285; G0378; Q3014

== ENCOUNTER 2023-09-29 11:31 | Outpatient (OUT) | payer OTHER, MEDICARE, SELFPAY ==
--- OUTSIDE RECORDS SUMMARY | 2023-09-29 11:47 | XMS_ITS | CCD ---
Author Name Unknown Address [address] [place] [address] Organization [facility] Care Team Providers Care Patient Observer Name Role Phone Adilson Salazar Primary Care Provider [phone] [facility] Admitting Unavailable JAVIER POSADAS Consulting Unavailable OMER ZAMBRANO Attending Unavailable ADILSON SALAZAR Primary Care Unavailabl JAMILA Bliss Consulting Unavailable ADILSON SALAZAR Primary Care Physician MD Adilson Salazar Primary Care Provider [phone] MD Milvia Palomo Attending Provider [phone] MD Adilson Salazar Primary Care Provider [phone] MD Milvia Palomo Attending Provider Milvia Palomo Admitting Unavailable Milvia Palomo Attending Unavailable Adilson Salazar Primary Care Unavailable Milvia Palomo Admitting Unavailable Milvia Palomo Attending Unavailable Adilson Salazar Primary Care Unavailable Sonya, Norleena R Admitting Unavailable Sonya Norleena R Attending Unavailable Dewey Milvia M Referring Unavailable Adilson Salazar Primary Care Unavailable MARIE, DR ADILSON Johnson Admitting Unavailable NADERER, DR ADILSON Johnson Attending Unavailable NADERER, DR ADILSON Johnson Primary Care Unavailable NADEREQuinton, DR ADILSON Johnson Consulting Unavailable NADERER, DR ADILSON Johnson Admitting Unavailable NADERER, DR ADILSON Johnson Attending Unavailable NADERER, DR ADILSON Johnson Primary Care Unavailable ZIEBER, DR SUELLEN Alcantara Consulting Unavailable APRILEREQuinton, DR ADILSON Johnson Consulting Unavailable NILL ., DR ACEVEDO Admitting Unavailable NILL ., DR ACEVEDO Attending Unavailable NADERER, DR ADILSON Johnson Primary Care Unavailable NILL ., DR ACEVEDO Consulting Unavailable NILL ., DR ACEVEDO Admitting Unavailable NILL ., DR ACEVEDO Attending Unavailable NADERER, DR ADILSON Johnson Primary Care Unavailable ZIEBER, DR SUELLEN Alcantara Consulting Unavailable NILL ., DR ACEVEDO Consulting Unavailable LUE, MILVIA M Admitting Unavailable LUE, MILVIA M Attending Unavailable NADERER, DR ADILSON Johnson Primary Care Unavailable LUE, MILVIA Powers Consulting Unavailable NADERER, DR ADILSON Johnson Primary Care Unavailable DIAB ., SAMIA Admitting Unavailable DIAB ., SAMIA Attending Unavailable DIAB ., SAMIA Consulting Unavailable NADERER, DR ADILSON Johnson Primary Care Unavailable TANNER, DR IRA Alcantara Consulting Unavailable NADERER, DR ADILSON Johnson Admitting Unavailable NADERER, DR ADILSON Johnson Attending Unavailable NADERER, DR ADILSON Johnson Consulting Unavailable WILSON, CURTIS Consulting Unavailable FAWWAD, SHAIKH Sonam Consulting Unavailable Erwin, Valerie Consulting Unavailable NILL ., DR ACEVEDO Admitting Unavailable NILL ., DR ACEVEDO Attending Unavailable NADERER, DR ADILSON Johnson Primary Care Unavailable NILL ., DR ACEVEDO Consulting Unavailable BRITT, ANSELMO GOLDMAN Consulting Unava ilable GEMBUS, ALANNAH Consulting Unavailable BAEZA, Daniel R Attending Unavailable Lue, Milvia M. Attending Unavailable Lue, Milvia M. Referring Unavailable Lue, Milvia M. Admitting Unavailable NILL, Curtis Alcantara Attending Unavailable NILL, Curtis Alcantara Attending Unavailable NILL, Curtis Alcantara Attending Unavailable Lue, Milvia M. Attending Unavailable Lue, Milvia M. Attending Unavailable Lue, Milvia M. Attending Unavailable Lue, Milvia M. Attending Unavailable Lue, Milvia M. Attending Unavailable Lue, Milvia M. Attending Unavailable Lue, Milvia M. Admitting Unavailable Lue, Milvia M. Attending Unavailable Lue, Milvia M. Referring Unavailable Lue, Milvia M. Admitting Unavailable Lue, Milvia M. Attending Unavailable Lue, Milvia M. Referring Unavailable DAVE, FIRAS Referring Unavailable DAVE, FIRAS Referring Unavailable DAVE, FIRAS Referring Unavailable DAVE, FIRAS Referring Unavailable DAVE, FIRAS Referring Unavailable HADZIAHMETOVIC, MERSIHA Attending Unavaila ble DAVE, FIRAS Referring Unavailable HADZIAHMETOVIC, MERSIHA Attending Unavaila ble DAVE, FIRAS Referring Unavailable DAVE, FIRAS Referring Unavailable DAVE, FIRAS Referring Unavailable HADZIAHMETOVIC, MERSA Attending Unavaila ble DAVE, FIRAS Referring Unavailable DAVE, FIRAS Referring Unavailable DAVE, FIRAS Referring Unavailable MOUKARBEL, SAMREEN Referring Unavailable DAVE, FIRAS Referring Unavailable DAVE, FIRAS Referring Unavailable MOUKARBEL, SAMREEN Referring Unavailable MOUKARBEL, SAMREEN Referring Unavailable HADZIAHMETOVIC, MERSIHA Attending Unavaila ble DAVE, FIRAS Referring Unavailable DAVE, FIRAS Referring Unavailable DAVE, FIRAS Referring Unavailable DAVE, FIRAS Referring Unavailable DAVE, FIRAS Referring Unavailable DAVE, FIRAS Referring Unavailable DAVE, FIRAS Referring Unavailable DAVE, FIRAS Referring Unavailable DAVE, FIRAS Referring Unavailable DAVE, FIRAS Referring Unavailable DAVE, FIRAS Referring Unavailable DAVE, FIRAS Referring Unavailable DAVE, FIRAS Referring Unavailable DAVE, FIRAS Referring Unavailable HADZIAHMETOVIC, MERSIHA Attending Unavaila ble DAVE, FIRAS Referring Unavailable HADZIAHMETOVIC, MERSA Attending Unavaila ble DAVE, FIRAS Referring Unavailable DAVE, FIRAS Referring Unavailable DAVE, FIRAS Referring Unavailable DAVE, FIRAS Referring Unavailable HADZIAHMETOVIC, MERSA Attending Unavaila ble DAVE, FIRAS Referring Unavailable HADZIAHMETOVIC, MERSIHA Referring Unavaila ble DAVE, FIRAS Referring Unavailable DAVE, FIRAS Attending Unavailable SINDHWANIJOSE Attending Unavailable MOUKARBEL, SAMREEN Attending Unavailable DAVE, FIRAS Referring Unavailable DAVE, FIRAS Referring Unavailable DAVE, FIRAS Attending Unavailable DAVE, FIRAS Attending Unavailable MOUKARBEL, SAMREEN Attending Unavailable MOUKARBEL, SAMREEN Attending Unavailable MOUKARBEL, SAMREEN Referring Unavailable DAVE, FIRAS Referring Unavailable MOUKARBEL, SAMREEN Referring Unavailable DAVE, FIRAS Attending Unavailable NADERER, ADILSON Attending Unavailable NADERER, ADILSON Attending Unavailable Allergies Allergy Classification Reported Allergen(s) Allergy Type Date of Onset Reaction(s) Facility (16 sources) Labetalol; 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: [labetalol] Drug Allergy 0 Unknown (origin) (qualifier value) [facility] (14 sources) Penicillin; 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: [penicillin] Drug Allergy 7 Unknown [facility] (4 sources) Penicillins; 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: [Penicillins] Allergy to substance 4 Rash [facility] (1 source) Labetalol Drug Allergy 1 [facility] (1 source) Labetalol Drug Allergy [facility] Medications Current Medications Medication Drug Class(es) Dates Sig (Normalized) Sig (Original) acetaminophen 325 mg / HYDROcodone bitartrate 5 mg oral tablet (2 sources) Opioid Agonist Start: 06-24-2021 take 1 tablet by mouth every six hours Hydrocodone-Acet aminophen Active 1 TAB PO Q6H June 23, 2021 11:00pm albuterol 0.833 mg/ml / ipratropium bromide 0.167 mg/ml inhalation solution (10 sources) Anticholinergic, beta2-Adrenergic Agonist Start: 06-11-2022 DuoNeb 2.5 mg-0.5 mg/3 mL Soln-Inh 3 mL, NEB, q4hr Shortness of breath or wheezing, Refill(s) 0 Start Date: 06/11/22 Status: Ordered amLODIPine 10 mg oral tablet (14 sources) Dihydropyridine Calcium Channel David Start: 08-12-2020 take 1 tablet by mouth once daily amLODIPine 10 mg Tab 10 mg = 1 tab(s), Oral, Daily, High blood pressure Start Date: 08/12/20 Status: Ordered aspirin 81 mg oral tablet (16 sources) Platelet Aggregation Inhibitor, Nonsteroidal Anti-inflammatory Drug Start: 06-24-2021 take 81 mg by mouth once daily Aspirin Active 81 MG PO Daily June 23, 2021 11:00pm Start: 08-12-2020 take 1 tablet by mouth once da gerry aspirin 81 mg Oral EC Tab 81 mg = 1 tab(s), Oral, Daily, Blood Thinner Start Date: 08/12/20 Status: Ordered Start: 06-07-2019 aspirin chewab le tablet 81 mg atorvastatin 80 mg oral tablet (16 sources) HMG-CoA Reductase Inhibitor Start: 08-12-2020 take 1 tablet by mouth once daily atorvastatin 80 mg Tab 80 mg = 1 tab(s), Oral, Daily, Refills(s) 0, High cholesterol Start Date: 08/12/20 Status: Ordered Start: 06-06-2019 take 1 tablet by marianne th once daily atorvastatin (LIPITOR) 80 MG tablet Take 1 tablet by mouth nightly 30 tablet 3 06/09/2019 Active azithromycin 250 mg oral tablet (2 sources) Macrolide Antimicrobial Start: 06-24-2021 Azithromycin Active 0 .ROUTE .COMPLEX June 23, 2021 11:00pm Take two tablets by mouth on day 1, then one tablet once a day on day two through five. Started 06/23/21 bisacodyl 10 mg rectal suppository (1 source) Stimulant Laxative Start: 06-06-2019 bisacodyl (DULCOLAX) suppository 10 mg budesonide 0.25 mg/ml inhalation suspension (10 sources) Corticosteroid Start: 06-11-2022 take 0.5 mg by inhalation twice daily as needed for wheezing budesonide 0.5 mg/2 mL Inh Susp 0.5 mg = 2 mL, NEB, BID, PRN Shortness of breath or wheezing, Refills(s) 0 Start Date: 06/11/22 Status: Ordered 24 hr buPROPion hydrochloride 150 mg extended release oral tablet (1 source) Aminoketone take 1 tablet by mouth once daily in the morning buPROPion (WELLBUTRIN XL) 150 MG extended release tablet Take 150 mg by mouth every morning 0 Active calcium polycarbophil 625 mg oral tablet (10 sources) Start: 06-11-2022 take 2 tablets by mouth once daily FiberCon 625 mg Tab 1,250 mg = 2 tab(s), Oral, Daily, Refills(s) 0, Constipation Start Date: 06/11/22 Status: Ordered cholecalciferol 0.05 mg oral tablet (14 sources) Vitamin D Start: 06-24-2021 take 50 ug by mouth once daily Cholecalciferol (Vitamin D3) Active 50 MCG PO Daily June 23, 2021 11:00pm Start: 08-12-2020 take 1 tablet by marianne th once daily cholecalciferol 2000 intl units oral tablet (Vitamin D3) 50 mcg = 1 tab(s), Oral, Daily, Refills(s) 0, Prophylaxis Start Date: 08/12/20 Status: Ordered clopidogrel 75 mg oral tablet (2 sources) P2Y12 Platelet Inhibitor Start: 06-08-2019 End: 09-06-2019 take 1 tablet by mouth once daily clopidogrel (PLAVIX) 75 MG tablet Take 1 tablet by mouth daily 30 tablet 3 06/09/2019 Active docusate sodium 100 mg oral capsule (1 source) Start: 06-06-2019 docusate sodiu m (COLACE) capsule 100 mg 0.4 ml enoxaparin sodium 100 mg/ml prefilled syringe (1 source) Low Molecular Weight Heparin Start: 06-07-2019 enoxaparin (LOVENOX) injection 40 mg folic acid 1 mg oral tablet (2 sources) Start: 06-08-2019 take 1 tablet by mouth twice daily folic acid (FOLVITE) 1 MG tablet Take 1 tablet by mouth 2 times daily 30 tablet 3 06/09/2019 Active glipiZIDE 10 mg oral tablet (15 sources) Sulfonylurea Start: 06-24-2021 take 1 tablet by mouth twice daily glipiZIDE 10 mg Tab 10 mg = 1 tab(s), Oral, BID, Refills(s) 0, Blood glucose Start Date: 06/11/22 Status: Ordered Start: 08-12-2020 take 1 mg by mouth once daily glipiZIDE 10 mg ER Tab mg tab(s), Oral, Daily Start Date: 08/12/20 Status: Ordered take 1 tablet by marianne th twice daily before mealtime glipiZIDE (GLUCOTROL) 10 MG tablet Take 10 mg by mouth 2 times daily (before meals) 0 Active glucagon (rdna) 1 mg injection (1 source) Antihypoglycemic Agent Start: 06-06-2019 glucago n (rDNA) injection 1 mg glucose 0.4 mg/mg oral gel (3 sources) Start: 06-06-2019 glucose (GLUTO SE) 40 % oral gel 15 g Start: 06-06-2019 dextrose 50 % IV solution Start: 06-06-2019 dextrose 5 % s olution Humalog Mix 50/50 KwikPen (2 sources) Start: 08-12-2020 Humalog Mix 50 /50 KwikPen SubCutaneous, BIDAC, Refill(s) 0 Start Date: 08/12/20 Status: Ordered Humalog Mix 75/25 KwikPen (10 sources) Start: 06-11-2022 Humalog Mix 75 /25 KwikPen 35 unit(s), SubCutaneous, BIDAC, Refill(s) 0, Blood glucose Start Date: 06/11/22 Status: Ordered Start: 06-11-2022 Humalog Mix 75 /25 KwikPen 35 unit(s), SubCutaneous, BIDAC, Refill(s) 0 Start Date: 06/11/22 Status: Ordered 1 ml hydrALAZINE hydrochloride 20 mg/ml injection (1 source) Arteriolar Vasodilator Start: 06-06-2019 hydrALAZINE (APRESOLINE) injection 10 mg hydroCHLOROthiazide 12.5 mg / lisinopril 20 mg oral tablet (16 sources) Thiazide Diuretic, Angiotensin Converting Enzyme Inhibitor Start: 08-12-2020 take 1 tablet by mouth twice daily hydrochlorothiazi de-lisinopril 12.5 mg-20 mg Tab 1 tab(s), Oral, BID, Refill(s) 0, High blood pressure Start Date: 08/12/20 Status: Ordered Start: 08-12-2020 take 1 tablet by marianne th once daily hydrochlorothiazide-lisinopril 12.5 mg-2 0 mg Tab tab(s), Oral, Daily, Refill(s) 0 Start Date: 08/12/20 Status: Ordered Start: 06-06-2019 take 1 tablet by marianne th twice daily 1 tablet, Oral, 2 TIMES DAILY, First dos e on Tue06/06/19 at 1345 ibuprofen 800 mg oral tablet (2 sources) Nonsteroidal Anti-inflammatory Drug Start: 06-24-2021 take 800 mg by mouth every six hours Ibuprofen Active 800 MG PO Q6H June 23, 2021 11:00pm insulin glargine 100 unt/ml injectable solution (1 source) Insulin Analog Start: 06-07-2019 insulin glargine (LANTUS) injection vial 20 Units insulin lispro 100 unt/ml injectable solution (2 sources) Insulin Analog Start: 06-06-2019 insulin lispro (HUMALOG) injection vial 0-9 Units Insulin Lispro Protamin-Lispro (Humalog Mix 75-25 Kwikpen) 100 unit/mL (75-25) insulin pen (2 sources) Start: 06-24-2021 Insulin Lispro Protamin-Lispro (Humalog Mix 75-25 Kwikpen) 100 unit/mL (75-25) insulin pen Active SUBCUT June 23, 2021 11:00pm Start: 06-24-2021 Insulin Lispro Protamin-Lispro (Humalog Mix 75-25 Kwikpen) 100 unit/mL (75-25) insulin pen Active SUBCUT June 24, 2021 12:00am labetalol (NORMODYNE;TRANDATE) injection syringe 10 mg (1 source) Start: 06-06-2019 labetalol (NORMODYNE;TRANDATE) injection syringe 10 mg lansoprazole (1 source) Proton Pump Inhibitor take 40 mg by mouth once daily Lansoprazole (PREVACID 24HR PO) Take 40 mg by mouth daily 0 Active magnesium hydroxide 80 mg/ml oral suspension (1 source) Start: 06-06-2019 magnesium hydroxide (MILK OF MAGNESIA) 400 MG/5ML suspension 30 mL melatonin 1 mg oral tablet (1 source) Start: 06-06-2019 melatonin tablet 3 mg 24 hr metFORMIN hydrochloride 500 mg extended release oral tablet (15 sources) Biguanide Start: 06-24-2021 take 500 mg by mouth twice daily Metformin Active 500 MG PO Twice daily June 23, 2021 11:00pm Start: 08-12-2020 take 1 tablet by marianne th twice daily metformin 500 mg ER Tab 500 mg = 1 tab(s), Oral, BID, Refills(s) 0, Blood glucose Start Date: 08/12/20 Status: Ordered Start: 08-12-2020 take 1 mg by mouth once daily metformin 500 mg ER Tab mg tab(s), Oral, Daily, Refills(s) 0 Start Date: 08/12/20 Status: Ordered take 1 tablet by marianne th twice daily metFORMIN (GLUCOPHAGE-XR) 500 MG extended release tablet Take 500 mg by mouth 2 times daily 0 Active methylPREDNISolone 32 mg oral tablet (2 sources) Corticosteroid Start: 06-26-2021 take 1 tablet by mouth once daily Methylprednisolone (Medrol) 32 mg tablet Active 32 MG PO Daily June 25, 2021 11:00pm start 06/27/21 am metoprolol tartrate 25 mg oral tablet (2 sources) beta-Adrenergic David Start: 06-09-2019 take 0.5 tablet by mouth twice daily metoprolol tartrate (LOPRESSOR) 25 MG tablet Take 0.5 tablets by mouth 2 times daily 60 tablet 3 06/09/2019 Active Start: 06-08-2019 metoprolol tar trate (LOPRESSOR) tablet 12.5 mg 24 hr mirabegron 50 mg extended release oral tablet (12 sources) beta3-Adrenergic Agonist Start: 04-21-2022 take 1 tablet by mouth once daily Myrbetriq 50 mg oral tablet, extended release 50 mg = 1 tab(s), Oral, Daily, # 30 tab(s), Refills(s) 6, Pharmacy: [id number], 183, cm, 04/21/22 11:40:00 EDT, Height/Length Dosing, 110.3, kg, 04/21/22 11:40:00 EDT, Weight Dosing Start Date: 04/21/22 Status: Ordered montelukast 10 mg oral tablet (15 sources) Leukotriene Receptor Antagonist Start: 08-12-2020 take 1 tablet by mouth once daily montelukast 10 mg Tab 10 mg = 1 tab(s), Oral, Daily, Refills(s) 0, Asthma Start Date: 08/12/20 Status: Ordered take 1 tablet by mouth once jay y montelukast (SINGULAIR) 10 MG tablet Take 10 mg by mouth nightly 0 Active 2 ml ondansetron 2 mg/ml injection (1 source) Serotonin-3 Receptor Antagonist Start: 06-06-2019 ondansetron (ZOFRAN) injection 4 mg pioglitazone 30 mg oral tablet (15 sources) Peroxisome Proliferator Receptor alpha Agonist, Peroxisome Proliferator Receptor gamma Agonist, Thiazolidinedione Start: 08-12-2020 take 1 tablet by mouth once daily pioglitazone 30 mg Tab 30 mg = 1 tab(s), Oral, Daily, Refills(s) 0, Blood glucose Start Date: 08/12/20 Status: Ordered take 1 tablet by mouth once jay y pioglitazone (ACTOS) 30 MG tablet Take 30 mg by mouth daily 0 Active Potassium Chloride (1 source) Start: 06-07-2019 potassium chlo ride (KLOR-CON M) extended release tablet 40 mEq pravastatin sodium 40 mg oral tablet (1 source) HMG-CoA Reductase Inhibitor take 1 tablet by mouth once daily pravastatin (PRAVACHOL) 40 MG tablet Take 40 mg by mouth daily 0 Active 3 ml sodium chloride 9 mg/ml injection (7 sources) Start: 06-07-2019 10 mL, Intravenous, EVERY 12 HOURS SCHEDULED (2 times per day), First dose on Ingrid 06/07/19 at 2100, Recovery(Cath) Start: 06-07-2019 take 10 mL intraveno us route once 10 mL, Intravenous, PRN, Line Care, Starting Tue06/07/19 at 1704 After every IV line use Recovery(Cath) Start: 06-07-2019 End: 06-08-2019 0.9 % sodium chloride infusi on Start: 06-05-2019 sodium chlorid e flush 0.9 % injection 10 mL tamsulosin hydrochloride 0.4 mg oral capsule (12 sources) alpha-Adrenergic David Start: 06-11-2022 take 1 capsule by mouth once daily tamsulosin 0.4 mg Cap 0.4 mg = 1 cap(s), Oral, Daily, Refills(s) 0, Bladder problems Start Date: 06/11/22 Status: Ordered Start: 06-09-2019 take 1 capsule by mo [facility] once daily tamsulosin (FLOMAX) 0.4 MG capsule Take 1 capsule by mouth daily 30 capsule 3 06/09/2019 Active triamcinolone acetonide 5 mg/ml topical cream (10 sources) Corticosteroid Start: 06-11-2022 triamcinolone Top 0.5% Crm 1 anne, Topical, TID Other (see comment), Refill(s) 0 Start Date: 06/11/22 Status: Ordered Completed/Discontinued Medications Medication Drug Class(es) Dates Sig (Normalized) Sig (Original) 100 ml clevidipine 0.5 mg/ml injection (1 source) Dihydropyridine Calcium Channel David Start: 06-05-2019 End: 06-08-2019 clevidipine (CLEVIPREX) infusion Iohexol (1 source) Radiographic Contrast Agent Start: 06-05-2019 End: 06-05-2019 iohexol (OMNIPAQUE 350) solution 90 mL 1.5 ml regular insulin, human 100 unt/ml prefilled syringe (1 source) Insulin Start: 06-05-2019 End: 06-05-2019 insulin regular (HUMULIN R;NOVOLIN R) injection 10 Units Start: 06-05-2019 End: 06-05-2019 insulin regular (HUMULIN R;N OVOLIN R) injection 10 Units warfarin sodium 5 mg oral tablet (1 source) Vitamin K Antagonist End: 06-09-2019 warfarin (COUMADIN) 5 MG tablet Take 5 mg by mouth 0 06/09/2019 Discontinued (Stop Taking at Discharge) Problems Active Problems Problem Classification Problem Date Documented Da te Episodic/Chronic Abdominal pain (20 sources) Left lower quadrant pain; 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: [Left lower quadrant pain] Onset: 2 Episodic Acute cerebrovascular disease (14 sources) Cerebrovascular accident; 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: [Cerebrovascular accident (CVA)] Onset: 9 06-06-2019 Chronic Allergic reactions (10 sources) Vesicular eczema 06-11-2022 Episodic Asthma (12 sources) Asthma; 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: [Unspecified asthma, uncomplicated] Onset: 2 06-11-2022 Chronic Cancer of prostate (16 sources) Malignant neoplasm of prostate; 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: [Malignant tumor of prostate] Onset: 2 Chronic Cardiac dysrhythmias (2 sources) Tachycardia; 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: [Tachycardia, unspecified] 06-25-2021 Episodic Chronic kidney disease (10 sources) Chronic kidney disease stage 3 06-11-2022 Chronic Chronic obstructive pulmonary disease and bronchiectasis (2 sources) Acute exacerbation of chronic obstructive airways disease; 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: [Chronic obstructive pulmonary disease with (acute) exacerbation] 06-25-2021 Chronic Congestive heart failure; nonhypertensive (2 sources) Chronic systolic (congestive) heart failure; 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: [Chronic systolic (congestive) heart failure] Onset: 3 Chronic Coronary atherosclerosis and other heart disease (2 sources) Atherosclerotic heart disease of [place] coronary artery without angina pectoris; 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: [Atherosclerotic heart disease of [place] coronary artery without angina pectoris] Onset: 3 Chronic Delirium, dementia, and amnestic and other cognitive disorders (1 source) Vascular dementia without behavioral disturbance; 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: [VASC DEM UNS SEV W/O DSTRBNC ANXTY] Onset: 3 Chronic Diabetes mellitus with complications (2 sources) Type 2 diabetes mellitus with diabetic chronic kidney disease; 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: [Type 2 diabetes mellitus with hyperglycemia] Onset: 2 Chronic Diabetes mellitus without complication (13 sources) Diabetes mellitus; 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: [Type 2 diabetes mellitus without complications] Onset: 3 06-25-2021 Chronic Diseases of white blood cells (10 sources) Eosinophil count raised 06-11-2022 Chronic Disorders of lipid metabolism (15 sources) Hyperlipidemia; 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: [Hyperlipidemia, unspecified] Onset: 2 08-12-2020 Chronic Esophageal disorders (11 sources) Gastroesophageal reflux disease; 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: [Gastro-esophageal reflux disease without esophagitis] Onset: 2 06-11-2022 Chronic Essential hypertension (20 sources) Hypertensive disorder; 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: [Malignant hypertension] Onset: 2 08-12-2020 Chronic Genitourinary symptoms and ill-defined conditions (14 sources) Urinary incontinence; 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: [Urge incontinence] Onset: 4 08-12-2020 Chronic Genitourinary symptoms and ill-defined conditions (20 sources) Nocturia; 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: [Urgent desire to urinate] Onset: 3 08-12-2020 Episodic Hyperplasia of prostate (20 sources) Benign prostatic hypertrophy with outflow obstruction; 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: [Benign prostatic hyperplasia with lower urinary tract symptoms] Onset: 2 Chronic Hypertension with complications and secondary hypertension (1 source) Hypertensive chronic kidney disease with stage 1 through stage 4 chronic kidney disease, or unspecified chronic kidney disease; 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: [HTN CKD W/STAGE 1-4 CKD/UNS CKD] Onset: 2 Chronic Mood disorders (12 sources) Depressive disorder 08-12-2020 Chronic Mycoses (4 sources) Tinea pedis; 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: [TINEA PEDIS] Onset: 3 Episodic Nutritional deficiencies (11 sources) Vitamin D deficiency; 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: [Vitamin D deficiency, unspecified] Onset: 2 06-11-2022 Chronic Other aftercare (1 source) Other 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) drug therapy; 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: [OTH FARM MACHINE TENDER CURRENT DRUG THERAPY] Onset: 3 Episodic Other aftercare (1 source) terminologist (current) use of insulin; 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: [ASSISTED CURRENT USE OF INSULIN] Onset: 3 Episodic Other aftercare (1 source) terminologist (current) use of oral hypoglycemic drugs; 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: [FARM MACHINE TENDER USE ORAL HYPOGLYCEMIC DX] Onset: 3 Episodic Other aftercare (1 source) 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) use of aspirin; 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: [FARM MACHINE TENDER CURRENT USE OF ASPIRIN] Onset: 3 Episodic Other and ill-defined cerebrovascular disease (1 source) Cerebrovascular disease, unspecified; 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: [CEREBROVASCULAR DISEASE UNSPECIFIED] Onset: 3 Chronic Other circulatory disease (2 sources) Presence of other cardiac implants and grafts; 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: [Presence of other cardiac implants and grafts] Onset: 3 Chronic Other circulatory disease (2 sources) H/O: hypertension; 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: [History of hypertension] 06-06-2019 Episodic Other circulatory disease (12 sources) History of cerebrovascular accident; 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: [History of ischemic left MCA stroke] 06-06-2019 Episodic Other diseases of bladder and urethra (1 source) Detrusor overactivity; 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: [Overactive bladder] Onset: 3 Chronic Other diseases of bladder and urethra (1 source) Overactive bladder 02-02-2023 Chronic Other eye disorders (10 sources) 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 Other hematologic conditions (2 sources) Raised cardiac enzyme or marker; 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: [Other specified abnormalities of plasma proteins] 06-25-2021 Episodic Other male genital disorders (18 sources) Male erectile dysfunction, unspecified; 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: [Erectile dysfunction] Onset: 2 Chronic Other nutritional; endocrine; and metabolic disorders (1 source) Obese class I; 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: [Body mass index (BMI) 31.0-31.9, adult] Onset: 2 Chronic Other nutritional; endocrine; and metabolic disorders (10 sources) Body mass index 30+ - obesity 06-25-2022 Chronic Other nutritional; endocrine; and metabolic disorders (10 sources) Morbid obesity 06-11-2022 Chronic Other nutritional; endocrine; and metabolic disorders (1 source) Obesity, unspecified; 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: [OBESITY UNSPECIFIED] Onset: 2 Chronic Other nutritional; endocrine; and metabolic disorders (1 source) Body mass index (BMI) 31.0-31.9, adult; 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: [BODY MASS INDEX BMI 31.0-31.9 ADULT] Onset: 2 Chronic Other nutritional; endocrine; and metabolic disorders (2 sources) H/O: diabetes mellitus; 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: [History of diabetes mellitus] 06-06-2019 Episodic Paralysis (2 sources) Left hemiparesis; 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: [Acute left hemiparesis] 06-06-2019 Chronic Phlebitis; thrombophlebitis and thromboembolism (13 sources) H/O: Deep vein thrombosis; 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: [Personal history of other venous thrombosis and embolism] Onset: 3 06-08-2019 Episodic Residual codes; unclassified (10 sources) Obstructive sleep apnea syndrome 06-11-2022 Chronic Residual codes; unclassified (1 source) Obstructive sleep apnea (adult) (pediatric); 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: [OBSTRUCTIVE SLEEP APNEA] Onset: 3 Chronic Residual codes; unclassified (1 source) Sleep apnea, unspecified; 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: [SLEEP APNEA UNSPECIFIED] Onset: 2 Chronic Unclassified (1 source) CHRN KIDNEY DISEASE STG 3 UNSP; 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: [CHRN KIDNEY DISEASE STG 3 UNSP] Onset: 2 Unclassified (1 source) CONTACT W/AND (SUSP) EXPOS COVID-19; 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: [CONTACT W/AND (SUSP) EXPOS COVID-19] Onset: 2 Past or Other Problems Problem Classification Problem Date Documented Da te Episodic/Chronic Acute and unspecified renal failure (1 source) Acute kidney failure, unspecified; 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: [ACUTE KIDNEY FAILURE UNSPECIFIED] Onset: 06-09-2022 Episodic Anal and rectal conditions (1 source) Rectal polyp; 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: [RECTAL POLYP] Onset: 07-29-2022 Episodic Fluid and electrolyte disorders (1 source) Dehydration; 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: [DEHYDRATION] Onset: 06-09-2022 Episodic Nonspecific chest pain (2 sources) Other chest pain; 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: [Other chest pain] Onset: 02-17-2023 Episodic Other aftercare (2 sources) 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 affecting estrogen receptors and estrogen levels; 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: [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) use of other agents affecting estrogen receptors and estrogen levels] Onset: 04-12-2023 Episodic Other circulatory disease (3 sources) Personal history of transient ischemic attack (TIA), and cerebral infarction without residual deficits; 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: [PERS HX TIA AND CI NO RESID DEFICIT] Onset: 07-29-2022 Episodic Other lower respiratory disease (2 sources) Shortness of breath; 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: [Shortness of breath] Onset: 02-17-2023 Episodic Other screening for suspected conditions (not mental disorders or infectious disease) (14 sources) Raised prostate specific antigen; 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: [Elevated prostate specific antigen [PSA]] Onset: 01-30-2022 Episodic Screening and history of mental health and substance abuse codes (1 source) Personal history of nicotine dependence; 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: [PERSONAL HISTORY OF NICOTINE DEPEND] Onset: 07-29-2022 Episodic Syncope (4 sources) Syncope and collapse; 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: [SYNCOPE AND COLLAPSE] Onset: 06-07-2022 Episodic Unclassified (1 source) Exposure to 2019 novel coronavirus; 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: [Contact with and (suspected) exposure to COVID19] Results Test Name Value Interpretation Reference Range Facility Labon 08-09-2023 Lab [id number] Eunice Marte 1955 M Date Provider Department Center 08/09/2023 2243-[facility] RESOURCE D[facility] DRAW [facility] Family History Problem Relation Age of Onset Heart disease Mother 58 Heart disease Maternal Grandmother Comments: heart trouble Heart disease Maternal Grandfather Comments: heart trouble Family Status - Relation Status Age at Mother Father Mother's Sister Mother's Brother Father's Sister Father's Brother Maternal Grandmother Maternal Grandfather Paternal Grandmother Paternal Grandfather Other Normal [facility] PSA, SCREENINGon 08-09-2023 PROSTATE SPECIFIC AG (NG/ML) IN SER/PLAS 0.1 ng/mL Low 0.4-4 [facility] Comment on above: Order Comment: To be collected 07/2023. Performed By: #### L [id number] #### [facility] ([facility]AK[facility]) [address] [place] [address] TESTOSTERONEon 08-09-2023 TESTOSTERONE (NG/DL) IN SER/PLAS 6 ng/dL Low 220-1000 [facility] Comment on above: Order Comment: To be collected 07/2024. Result Comment: Test Performed by [facility] [address] [place] [address] - Released 08/09/2023 16:24 Performed By: #### L [id number] #### [facility] [address] [place] [address] Documentationon 06-22-2023 Documentation [id number] Eunice Marte 1955 M Date Provider Department Center 06/22/2023 Cory1-THELMA ALLISON RAD ONC [facility] Family History Problem Relation Age of Onset Heart disease Mother 58 Heart disease Maternal Grandmother Comments: heart trouble Heart disease Maternal Grandfather Comments: heart trouble Family Status - Relation Status Age at Mother Father Mother's Sister Mother's Brother Father's Sister Father's Brother Maternal Grandmother Maternal Grandfather Paternal Grandmother Paternal Grandfather Other Normal [facility] Letter (Out)on 06-21-2023 Letter (Out) [id number] Eunice Marte 1955 M [facility] Provider Department [place] 06/21/2023 OLIVER MIJARES ONC [facility] Family History Problem Relation Age of Onset Heart disease Mother 58 Heart disease Maternal Grandmother Comments: heart trouble Heart disease Maternal Grandfather Comments: heart trouble Family Status - Relation Status Age at Mother Father Mother's Sister Mother's Brother Father's Sister Father's Brother Maternal Grandmother Maternal Grandfather Paternal Grandmother Paternal Grandfather Other [facility] Letter (Out)on 06-10-2023 Letter (Out) [id number] Eunice Marte [address] [facility] Provider Department [place] 06/10/2023 None-None [facility] Family History Problem Relation Age of Onset Heart disease Mother 58 Heart disease Maternal Grandmother Comments: heart trouble Heart disease Maternal Grandfather Comments: heart trouble Family Status - Relation Status Age at Mother Father Mother's Sister Mother's Brother Father's Sister Father's Brother Maternal Grandmother Maternal Grandfather Paternal Grandmother Paternal Grandfather Other [facility] [id number] 06-07-2023 [id number] 06/07/2023. Patient seen in [facility]. Patients was present for the ICF discussion. Research coordinator discussed [employer] study with patient including purpose of the study, why patient is a potential patient, follow up time points and study questionnaires. Patient and verbalized understanding of study requirements and follow up schedules. Patient agreed to participate. ICF signed and signed copy given to patient. Meagan Pettit RN [facility] Follow-Upon 06-07-2023 Follow-Up [id number] Eunice Marte 1955 M [facility] Provider Department [place] 06/07/2023 PHYLLIS DAGNELO ONC [facility] Family History Problem Relation Age of Onset Heart disease Mother 58 Heart disease Maternal Grandmother Comments: heart trouble Heart disease Maternal Grandfather Comments: heart trouble Family Status - Relation Status Age at Mother Father Mother's Sister Mother's Brother Father's Sister Father's Brother Maternal Grandmother Maternal Grandfather Paternal Grandmother Paternal Grandfather Other Level of Service:07009 SC OFFICE/OUTPATIENT ESTABLISHED MOD MDM 30-39 MIN Reason for Visit and Comments: Follow-up [[id number]] - Dexa and Labs Normal [facility] 29on 05-30-2023 29 Encounter addended by: Maricarmen Martinez on: 06/06/2023 10:10 AM Actions taken: Clinical Note Signed, Letter saved Normal [facility] Labon 05-25-2023 Lab [id number] Eunice Marte 1955 M Date Provider Department Center 05/25/2023 2243-[facility] LAB RESOURCE D[facility] DRAW [facility] Family History Problem Relation Age of Onset Heart disease Mother 58 Heart disease Maternal Grandmother Comments: heart trouble Heart disease Maternal Grandfather Comments: heart trouble Family Status - Relation Status Age at Mother Father Mother's Sister Mother's Brother Father's Sister Father's Brother Maternal Grandmother Maternal Grandfather Paternal Grandmother Paternal Grandfather Other Normal [facility] PSA, SCREENINGon 05-25-2023 PROSTATE SPECIFIC AG (NG/ML) IN SER/PLAS 8.9 ng/mL High 0.4-4 [facility] Comment on above: Order Comment: To be obtained today Performed By: #### L [id number] #### [facility] ([facility]) [address] [place] [address] TESTOSTERONEon 05-25-2023 TESTOSTERONE (NG/DL) IN SER/PLAS 283 ng/dL Normal 220-1000 [facility] Comment on above: Order Comment: To be collected 05/2023. Result Comment: Test Performed by [facility] [address] [place] [address] - Released 05/25/2023 20:44 Performed By: #### L [id number] #### [facility] [address] [place] [address] Documentationon 04-13-2023 Documentation [id number] Eunice Marte 1955 M Date Provider Department Center 04/13/2023 1067-ROBB JORDAN ONC [facility] Family History Problem Relation Age of Onset Heart disease Mother 58 Heart disease Maternal Grandmother Comments: heart trouble Heart disease Maternal Grandfather Comments: heart trouble Family Status - Relation Status Age at Mother Father Mother's Sister Mother's Brother Father's Sister Father's Brother Maternal Grandmother Maternal Grandfather Paternal Grandmother Paternal Grandfather Other Reason for Visit and Comments: Specialty Pharmacy Note: [facility] [Other] Normal [facility] Follow-Upon 04-12-2023 Follow-Up [id number] Eunice Marte 1955 M Date Provider Department Center 04/12/2023 Mona-PHYLLIS ACOSTA ONC [facility] Family History Problem Relation Age of Onset Heart disease Mother 58 Heart disease Maternal Grandmother Comments: heart trouble Heart disease Maternal Grandfather Comments: heart trouble Family Status - Relation Status Age at Mother Father Mother's Sister Mother's Brother Father's Sister Father's Brother Maternal Grandmother Maternal Grandfather Paternal Grandmother Paternal Grandfather Other Level of Service:30529 SC OFFICE/OUTPATIENT ESTABLISHED HIGH MDM 40-54 MIN Reason for Visit and Comments: Follow-up [[id number]] - Here to discuss tx plan Normal [facility] Labon 04-12-2023 Lab [id number] Eunice Marte 1955 M Date Provider Department Center 04/12/2023 2244-[facility] MP LAB RESOURCE MP DRAW [facility] Family History Problem Relation Age of Onset Heart disease Mother 58 Heart disease Maternal Grandmother Comments: heart trouble Heart disease Maternal Grandfather Comments: heart trouble Family Status - Relation Status Age at Mother Father Mother's Sister Mother's Brother Father's Sister Father's Brother Maternal Grandmother Maternal Grandfather Paternal Grandmother Paternal Grandfather Other Normal [facility] PSA, SCREENINGon 04-12-2023 PROSTATE SPECIFIC AG (NG/ML) IN SER/PLAS 8.1 ng/mL High 0.4-4 [facility] Comment on above: Order Comment: To be obtained today Performed By: #### L [id number] #### [facility] ([facility]) [address] [place] [address] TESTOSTERONEon 04-12-2023 TESTOSTERONE (NG/DL) IN SER/PLAS 205 ng/dL Low 220-1000 [facility] Comment on above: Order Comment: To be obtained today. Result Comment: Test Performed by [facility] [address] [place] [address] - Released 04/12/2023 22:43 Performed By: #### L [id number] #### [facility] [address] [place] [address] Pathology Reporton Pathology Report [id number]# 1.00CD:127 Normal [facility] Follow-Upon 03-17-2023 Follow-Up [id number] Eunice Marte 1955 M Date Provider Department Center 03/17/2023 SAMREEN DOZIER [facility] Family History Problem Relation Age of Onset Heart disease Mother 58 Heart disease Maternal Grandmother Comments: heart trouble Heart disease Maternal Grandfather Comments: heart trouble Family Status - Relation Status Age at Mother Father Mother's Sister Mother's Brother Father's Sister Father's Brother Maternal Grandmother Maternal Grandfather Paternal Grandmother Paternal Grandfather Other Level of Service:16839 SC OFFICE/OUTPATIENT ESTABLISHED MOD MDM 30-39 MIN Reason for Visit and Comments: Hypertension [038049] Pre-op Exam [[id number]] Normal [facility] 36on 03-09-2022 36 When can I put this pt on your schedule? Normal [facility] BASIC METABOLIC PANELon 02-19 Anion gap [Moles/Vol] 13 mmol/L Normal 7-20 [facility] Comment on above: Performed By: #### L AB15 ####[facility] ([facility])[address] [place] [address] Calcium [Mass/Vol] 9.7 mg/dL Normal 8.6-10.3 [facility] Comment on above: Performed By: #### L AB15 ####[facility] ([facility]ER)[address] [place] [address] Chloride [Moles/Vol] 101 mmol/L Normal 98-107 [facility] Comment on above: Performed By: #### L AB15 ####[facility] [place] [address] CO2 [Moles/Vol] 28 mmol/L Normal 21-31 [facility] Comment on above: Performed By: #### L AB15 ####[facility] ([facility])[address] [place] [address] Creatinine [Mass/Vol] 1.15 mg/dL Normal 0.70-1.30 [facility] Comment on above: Performed By: #### L AB15 ####[facility] ([facility])[address] [place] [address] GLOMERULAR FILTRATION RATE ML/MIN/1.73 SQ M.PREDICTED 69.8 mL/min/1.73m*2 Normal >60.0 [facility] Comment on above: Result Comment: The [facility]???s estimated glomerular filtration rate (eGFR) will no longer include consideration of race in its calculation. The National Kidney Foundation???s eGFR Task Force developed new recommendations for the estimation of the glomerular filtration rate in the [place] They recommend immediate implementation of the new equation refit without the race variable in all laboratories because the calculation does not include race. In addition to not including race in the calculation and reporting, it included diversity in its development, and has acceptable performance characteristics and potential consequences that do not disproportionately affect any one group of individuals. Performed By: #### L AB15 ####[facility] ([facility] [place] [address] Glucose [Mass/Vol] 170 mg/dL High 70-100 [facility] Comment on above: Performed By: #### L AB15 ####[facility] ([facility] [place] [address] Potassium [Moles/Vol] 3.9 mmol/L Normal 3.5-5.1 [facility] Comment on above: Performed By: #### L AB15 ####[facility] ([facility] [place] [address] Sodium [Moles/Vol] 138 mmol/L Normal 136-145 [facility] Comment on above: Performed By: #### L AB15 ####[facility] ([facility])[address] [place] [address] Urea nitrogen [Mass/Vol] 17 mg/dL Normal 7-25 [facility] Comment on above: Performed By: #### L AB15 ####[facility] ([facility])[address] [place] [address] UREA NITROGEN/CREATININE (MASS RATIO) IN SER/PLAS 14.8 Normal [facility] Comment on above: Performed By: #### L AB15 ####[facility] ([facility])[address] [place] [address] LIPID PANELon 03-02-2023 CHOL/HDL 4.2 mg/dL Normal [facility] Comment on above: Performed By: #### L AB18 #### [facility] ([facility]) [address] [place] [address] Cholesterol [Mass/Vol] 178 mg/dL Normal 120-200 [facility] Comment on above: Performed By: #### L [id number] #### [facility] ([facility]) [address] [place] [address] Magnesium [Mass/Vol] 114 mg/dL Normal 40-149 [facility] Comment on above: Result Comment: TRIG LYCERIDE REFERENCE RANGE: 20 YEARS AND OLDER CARDIOVASCULAR RISK LESS THAN 150 mg/dL LOW RISK 150 TO 199 mg/dL BORDERLINE RISK 200 mg/dL AND GREATER HIGH RISK Performed By: #### L [id number] #### [facility] ([facility]) [address] [place] [address] Magnesium [Mass/Vol] 113 mg/dL Normal 0-160 [facility] Comment on above: Performed By: #### L [id number] #### [facility] ([facility]) [address] [place] [address] Magnesium [Mass/Vol] 42 mg/dL Normal 23-92 [facility] Comment on above: Performed By: #### L [id number] #### [facility] ([facility]AKER) [address] [place] [address] NON HDL CHOL. (LDL+VLDL) 136 Normal [facility] Comment on above: Performed By: #### L AB18 #### [facility] ([facility]) [address] [place] [address] TOTAL VLDL-C 23 mg/dL Normal 0-40 [facility] Comment on above: Performed By: #### L [id number] #### [facility] ([facility]) [address] [place] [address] Labon 03-02-2023 Lab [id number] Eunice Marte [address] [facility] Provider Department Center 03/02/2023 2245-[facility]PD LAB RESOURCE [facility] Family History Problem Relation Age of Onset Heart disease Mother 58 Heart disease Maternal Grandmother Comments: heart trouble Heart disease Maternal Grandfather Comments: heart trouble Family Status - Relation Status Age at Mother Father Mother's Sister Mother's Brother Father's Sister Father's Brother Maternal Grandmother Maternal Grandfather Paternal Grandmother Paternal Grandfather Other Normal [facility] 36on 02-25-2023 36 You said at discharg e at last visit to schedule with you in 2 wks. Can I put him on your schedule for the ? Normal [facility] Telephoneon 02-25-2023 Telephone [id number] Eunice Marte [address] [facility] Provider Department Center 02/25/2023 SAMREEN DOZIER [facility] Family History Problem Relation Age of Onset Heart disease Mother 58 Heart disease Maternal Grandmother Comments: heart trouble Heart disease Maternal Grandfather Comments: heart trouble Family Status - Relation Status Age at Mother Father Mother's Sister Mother's Brother Father's Sister Father's Brother Maternal Grandmother Maternal Grandfather Paternal Grandmother Paternal Grandfather Other Normal [facility] Office Visiton 02-23-2023 Follow-up visit [id number] Eunice Marte [address] [facility] Provider Department Center 02/23/2023 SAMREEN DOZIER [facility] Family History Problem Relation Age of Onset Heart disease Mother 58 Heart disease Maternal Grandmother Comments: heart trouble Heart disease Maternal Grandfather Comments: heart trouble Family Status - Relation Status Age at Mother Father Mother's Sister Mother's Brother Father's Sister Father's Brother Maternal Grandmother Maternal Grandfather Paternal Grandmother Paternal Grandfather Other Level of Service:47013 SC OFFICE/OUTPATIENT ESTABLISHED MOD MDM 30-39 MIN Reason for Visit and Comments: Follow-up [[id number]] - Echo and stress test. Pt is here for prostate surgery clearance Normal [facility] Urology Office/Clinic Noteon 02-03-2023 Urology Office/Clinic Note Chief Complaint Pt is here for 3 month f/u HPI Staff Eunice is a 67 y.o. male here for 3 month follow up. Previous DX: Prostate Cancer, BPH, Nocturia, ED. *Oxybutynin 5mg QD & Myrbetriq 50mg QD therapy. Pt referred to to [facility] for Ret[facility]ius sparing prostatectomy. Pt saw Dr Jose Ramos 11/30/22 for consultation., then saw Dr Acosta (urologic oncology) 12/07/22. Pt is currently waiting on cardiac clearance prior to procedure. Dysuria: denies Incomplete bladder emptying: denies Hematuria: denies Frequency: yes Urgency: yes Nocturia: 3-4x a night Stream: steady stream Leaking: denies Post void dripping: mild Wearing pads/ Depends: yes wears depends Urge incontinence: denies Stress incontinence: denies Incontinence without Sensory Awareness: denies Abdominal pain: denies Flank pain: denies Sexual complaints: _ History of Present Illness Tests reviewed: reviewed UA, external consult notes. I have reviewed the previous health record information and history for this patient from Dr. Palomo, external providers I have reviewed and verified the staff HPI to be accurate for this encounter. There have been no associated fever, chills, flank pain, or blood in the urine. Denies any urinary infections since last encounter. Review of Systems PHQ Score Initial Depression Screen Score: 0 ROS - Provider Constitutional: denies weight loss, denies hot flashes. Eyes: denies eye problems. Gastrointestinal: denies nausea, denies vomiting. Cardiovascular: denies chest pain or angina. Integumentary: no dryness Musculoskeletal: denies musculoskeletal symptoms. ENMT: denies otolaryngeal symptoms. Respiratory: no shortness of breath. Heme/Lymph: denies easy bleeding tendency, denies easy bruising tendency. Psychiatric: no confusion, no anxiety. Genitourinary: See HPI. Physical Exam Vitals & Measurements HR: 72(Peripheral) BP: 132/82 HT: 72 in HT: 183 cm WT: 110 kg WT: 242 lb BMI: 32.85 General Appearance: alert, no distress, well nourished, well developed male. Cane assistance for ambulation Genitourinary: Flank Pain: none. Bladder: nonpalpable. Assessment/Plan 67 yo AA Male diagnosed via MRI fusion TP prostate biopsy 07/06/22 with unfavorable intermediate risk cT1c prostate cancer Grade group 2 in 3/21 cores, iPSA 11.09, PSAD 0.23. (2 IRF) Pt here with today for follow up. 1. Prostate cancer (C61: Malignant neoplasm of prostate) PSA: 04/06/21 - 7.2 & 5.3% 10/03/21 - 6.8 & 5.7% 01/26/22 - 11.09 10/25/22 - 8.2 & 5.0% Prior TRUS/Bx by MARCUS 08/2020 was negative MRI prostate 05/26/22 - PIRADS 4 lesion mid gland peripheral zone, 8 x 8 mm. T1/T2 hypointense lesion is seen involving the right ischial tuberosity. Prostate vol 48 mL. S/p MRI fusion Transperineal Prostate Bx 07/06/22 - Path: prostate adenocarcinoma Grade group 2 in +3/21 cores, 81% involved (including MARÍA ELENA LT peripheral zone mid, same region as + core on standard bx). No cribriform. PSMA PET scan 09/20/22 - Subtle focal activity is seen involving the anterior aspect the left portion of the prostate gland. No PSMA evidence of local or distant metastatic disease. Decipher 09/16/22 - High genomic risk 0.73. Consult with Dr. Hassan 09/22/22 - RT x 4 wks recommended if pt desires. Likely worsening LUTS. Referred to tertiary center regarding RALP given comorbidities and IPP. Unsure why seen by 2 Urologists at [facility], notes were reviewed Urology consult Dr. Jose Ramos [facility] 11/30/22. Urology oncology consult Dr. Phyllis Acosta [facility] 12/07/22 - plans for RALP pending cardiac workup Pt waiting on cardiac clearance to proceed with RALP with Dr. Acosta. Explained SEs of prostatectomy regarding leakage. Educated pt on Kegels, improving leakage post prostatectomy. PSA declined Pt to call for follow up once he undergoes surgery/complete periop care with Dr. Acosta for local monitoring, or sooner if needed. Pt understands and agrees with plan. -Cardiac health, general fitness. -Practice Kegels. Educational pamphlet provided. 2. Enlarged prostate with urinary obstruction (N40.1: Benign prostatic hyperplasia with lower urinary tract symptoms) No sample provided for UA today. IPSS 13. Taking Flomax 0.4 mg qd, mirabgeron and oxybutyin for LUTS. Prior PVR low. Patient is tolerating current medication for BPH with LUTS well without side effects, he would like to continue the medication. Will send refill and follow up after prostatectomy -Cont timed voiding, behavioral modifications, meds as above 3. Nocturia (R35.1: Nocturia) Ongoing, unchanged 3-4x/night. Sleep apnea. -Recommend CPAP compliance, behavioral modifications. -Cont med mgmt -Readdress after prosattectomy 4. Erectile dysfunction (N52.9: Male erectile dysfunction, unspecified) THANH 1. Not a priority at this time. Pt already has a penile prosthesis pump, does not use it. Has had for at least 10 yrs. Had implanted in [place]. Increased complications for prostatectomy/IPP infectio (more content not included)... Normal [facility] Comment on above: Result Comment: Elec tronically Signed By: Milvia Palomo MD\.br\Date and Time Signed: 02/02/23 23:04 EDT\.br\Electronically Co-Signed By: Gifty Mann\.br\Date and Time Co-Signed: 02/02/23 10:37 EDT Ambulatory Visit Summaryon 0 02-02-2023 Ambulatory Visit Summary LYDIA EUNICE Alcantara :1955 Visit Date:02/02/2023 Ambulatory Visit Instructions Your Diagnosis Prostate cancer Enlarged prostate with urinary obstruction Nocturia Erectile dysfunction OAB (overactive bladder) Your Care Team Attending Physician - Milvia Palomo MD Primary Care Physician - ADILSON SALAZAR MD This Is Your Medications List mirabegron (Myrbetriq 50 mg oral tablet, extended release) Contact prescribing physician if questions or concerns albuterol-ipratropium (DuoNeb 2.5 mg-0.5 mg/3 mL Soln-Inh) amlodipine (amLODIPine 10 mg Tab) aspirin (aspirin 81 mg Oral EC Tab) atorvastatin (atorvastatin 80 mg Tab) budesonide (budesonide 0.5 mg/2 mL Inh Susp) cholecalciferol (cholecalciferol 2000 intl units oral tablet (Vitamin D3)) glipiZIDE (glipiZIDE 10 mg Tab) hydrochlorothiazide-l isinopril (hydrochlorothiazide- lisinopril 12.5 mg-20 mg Tab) insulin lispro-insulin lispro protamine (Humalog Mix 75/25 KwikPen) metformin (metformin 500 mg ER Tab) montelukast (montelukast 10 mg Tab) pioglitazone (pioglitazone 30 mg Tab) polycarbophil (FiberCon 625 mg Tab) tamsulosin (tamsulosin 0.4 mg Cap) triamcinolone topical (triamcinolone Top 0.5% Crm) Procedures Performed Biopsy of prostate (07/06/2022), Transrectal biopsy of prostate using ultrasound (US) guidance (09/08/2020), Colonoscopy (2011), Arthroplasty of knee, Arthroscopy of shoulder, CE - Cataract extraction, Insertion of catheter into spinal canal for infusion of therapeutic substance, Lumbar discectomy. Discharge Vitals Heart Rate (Peripheral) 72 Blood Pressure 132/82 Height 183 cm Height 72 in Weight 110 kg Weight 242 lb BMI 32.85 What to do next You Need to Schedule the Following Appointments Follow Up with Dewey COTTO, Milvia Lucia, URL, URO When: Where: Medications What How Much When Instructions Unchanged mirabegron (Myrbetriq 50 mg oral tablet, extended release) 1 Tablets By Mouth Every day Unchanged albuterol-ipratropium (DuoNeb 2.5 mg-0.5 mg/ 3 mL Soln-Inh) 3 Milliliter Nebulized inhalation (aerosol) Every 4 hours as needed for Shortness of breath or wheezing Contact prescribing physician if questions or concerns Unchanged amlodipine (amLODIPine 10 mg Tab) 1 Tablets By Mouth Every day Contact prescribing physician if questions or concerns Unchanged aspirin (aspirin 81 mg Oral EC Tab) 1 Tablets By Mouth Every day Contact prescribing physician if questions or concerns Unchanged atorvastatin (atorvastatin 80 mg Tab) 1 Tablets By Mouth Every day Contact prescribing physician if questions or concerns Unchanged budesonide (budesonide 0.5 mg/ 2 mL Inh Susp) 2 Milliliter Nebulized inhalation (aerosol) 2 times a day as needed for Shortness of breath or wheezing Contact prescribing physician if questions or concerns Unchanged cholecalciferol (cholecalciferol 2000 intl units oral tablet (Vitamin D3)) 1 Tablets By Mouth Every day Contact prescribing physician if questions or concerns Unchanged glipiZIDE (glipiZIDE 10 mg Tab) 1 Tablets By Mouth 2 times a day Contact prescribing physician if questions or concerns Unchanged hydrochlorothiazide-l isinopril (hydrochlorothiazide- lisinopril 12.5 mg-20 mg Tab) 1 Tablets By Mouth 2 times a day Contact prescribing physician if questions or concerns Unchanged insulin lispro-insulin lispro protamine (Humalog Mix 75/ 25 KwikPen) 35 Units Subcutaneous Twice a day (before meals) Contact prescribing physician if questions or concerns Unchanged metformin (metformin 500 mg ER Tab) 1 Tablets By Mouth 2 times a day Contact prescribing physician if questions or concerns Unchanged montelukast (montelukast 10 mg Tab) 1 Tablets By Mouth Every day Contact prescribing physician if questions or concerns Unchanged pioglitazone (pioglitazone 30 mg Tab) 1 Tablets By Mouth Every day Contact prescribing physician if questions or concerns Unchanged polycarbophil (FiberCon 625 mg Tab) 2 Tablets By Mouth Every day Contact prescribing physician if questions or concerns Unchanged tamsulosin (tamsulosin 0.4 mg Cap) 1 Capsules By Mouth Every day Contact prescribing physician if questions or concerns Unchanged triamcinolone topical (triamcinolone Top 0.5% Crm) 1 Application Topical 3 times a day as needed for Other (see comment) Contact prescribing physician if questions or concerns Allergies penicillin (Unknown) labetalol (Unknown (origin)) Problems Ongoing - Any problem that you are currently receiving treatment for. Abdominal pain, LLQ Asthma BMI 31.0-31.9,adult BPH with elevated PSA BPH with urinary obstruction CKD (chronic kidney disease), stage III Depression Diabetes Dyshidrotic eczema Enlarged prostate with urinary obstruction Eosinophilia Erectile dysfunction GERD (gastroesophageal reflux disease) Hyperlipemia Hypertension Incontinence of urine Lateral rectus palsy LLQ pain Morbid obesity Nocturia OAB (overactive bladder) ALLISON (more content not included)... Normal [facility] CBC WITH AUTO DIFFERENTIALon 02-02-2023 Basophils (Bld) [#/Vol] 0.06 10*3/uL Normal 0.00-0.20 [facility] Comment on above: Performed By: #### L [id number] ####[facility] ([facility]AK[facility])[address] [place] [address] Basophils/100 WBC (Bld) 1.0 % Normal 0.0-1.0 [facility] Comment on above: Performed By: #### L [id number] ####[facility] ([facility])[address] [place] [address] Eosinophils (Bld) [#/Vol] 0.31 10*3/uL Normal 0.00-0.50 [facility] Comment on above: Performed By: #### L [id number] ####[facility] ([facility])[address] [place] [address] Eosinophils/100 WBC (Bld) 5.1 % Normal 0.0-6.0 [facility] Comment on above: Performed By: #### L [id number] ####[facility] ([facility])[address] [place] [address] Erythrocyte distribution width (RBC) [Ratio] 14.1 % Normal 11.5-15.0 [facility] Comment on above: Performed By: #### L [id number] ####[facility] ([facility])[address] [place] [address] ERYTHROCYTE MEAN CORPUSCULAR HEMOGLOBIN CONCENTRATION (G/DL) BY AUTOMATED 33.1 g/dL Normal 32.0-35.0 [facility] Comment on above: Performed By: #### L [id number] ####[facility] ([facility]ER)[address] [address] Hematocrit (Bld) [Volume fraction] 46.8 % Normal 39.0-55.0 [facility] Comment on above: Performed By: #### L [id number] ####[facility] ([facility])[address] [place] [address] Hemoglobin (Bld) [Mass/Vol] 15.5 g/dL Normal 13.0-17.0 [facility] Comment on above: Performed By: #### L [id number] ####[facility] ([facility])[address] [place] [address] Immature granulocytes (Bld) [#/Vol] 0.01 10*3/uL Normal 0.00-0.20 [facility] Comment on above: Performed By: #### L [id number] ####[facility] ([facility])[address] [place] [address] Immature granulocytes/100 WBC (Bld) 0.2 % Normal 0.0-1.0 [facility] Comment on above: Performed By: #### L [id number] ####[facility] ([facility])[address] [place] [address] Lymphocytes (Bld) [#/Vol] 2.18 10*3/uL Normal 1.20-4.00 [facility] Comment on above: Performed By: #### L [id number] ####[facility] ([facility] [place] [address] Lymphocytes/100 WBC (Bld) 36.1 % Normal 20.0-45.0 [facility] Comment on above: Performed By: #### L [id number] ####[facility] ([facility] [place] [address] MCH (RBC) [Entitic mass] 28.2 pg Normal 27.0-33.0 [facility] Comment on above: Performed By: #### L [id number] ####[facility] ([facility])[address] [place] [address] MCV (RBC) [Entitic vol] 85.2 fL Normal 82.0-98.0 [facility] Comment on above: Performed By: #### L [id number] ####[facility] ([facility]ER)[address] [place] [address] Monocytes (Bld) [#/Vol] 0.54 10*3/uL Normal 0.10-1.00 [facility] Comment on above: Performed By: #### L [id number] ####[facility] ([facility]ER)[address] [place] [address] Monocytes/100 WBC (Bld) 8.9 % Normal 5.0-12.0 [facility] Comment on above: Performed By: #### L [id number] ####[facility] ([facility])[address] [place] [address] Neutrophils (Bld) [#/Vol] 2.94 10*3/uL Normal 1.60-7.60 [facility] Comment on above: Performed By: #### L [id number] ####[facility] ([facility])[address] [place] [address] Neutrophils/100 WBC (Bld) 48.7 % Normal 40.0-72.0 [facility] Comment on above: Performed By: #### L [id number] ####[facility] ([facility])[address] [place] [address] NRBC (PER 100 WBCS) BY AUTOMATED COUNT 0.0 % Normal 0 [facility] Comment on above: Performed By: #### L [id number] ####[facility] ([facility])[address] [place] [address] PLATELETS (10*3/UL) IN BLOOD AUTOMATED COUNT 200 10*3/uL Normal 150-400 [facility] Comment on above: Performed By: #### L [id number] ####[facility] ([facility])[address] [place] [address] RBC (Bld) [#/Vol] 5.49 10*6/uL Normal 4.20-5.[address] [facility] Comment on above: Performed By: #### L [id number] ####[facility] ([facility])[address] [place] [address] WBC (Bld) [#/Vol] 6.04 10*3/uL Normal 4.00-10.[address] [facility] Comment on above: Performed By: #### L [id number] ####[facility] ([facility])[address] [place] [address] COMPREHENSIVE METABOLIC PANE Mack 02-02-2023 Albumin [Mass/Vol] 4.6 g/dL Normal 3.5-5.7 [facility] Comment on above: Performed By: #### L [id number] #### [facility] ([facility]) [address] [place] [address] ALP [Catalytic activity/Vol] 106 U/L High 34-104 [facility] Comment on above: Performed By: #### L [id number] #### [facility] ([facility]) [address] [place] [address] ALT [Catalytic activity/Vol] 22 U/L Normal 7-52 [facility] Comment on above: Performed By: #### L [id number] #### [facility] ([facility]) [address] [place] [address] Anion gap [Moles/Vol] 10 mmol/L Normal 7-20 [facility] Comment on above: Performed By: #### L [id number] #### [facility] ([facility]) [address] [place] [address] AST [Catalytic activity/Vol] 16 U/L Normal 13-39 [facility] Comment on above: Performed By: #### L [id number] #### [facility] ([facility]) [address] [place] [address] Bilirubin [Mass/Vol] 0.7 mg/dL Normal 0.3-1.0 [facility] Comment on above: Performed By: #### L [id number] #### [facility] ([facility]) [address] [place] [address] Calcium [Mass/Vol] 9.7 mg/dL Normal 8.6-10.3 [facility] Comment on above: Performed By: #### L [id number] #### [facility] ([facility] [address] [place] [address] Chloride [Moles/Vol] 99 mmol/L Normal 98-107 [facility] Comment on above: Performed By: #### L [id number] #### [facility] ([facility]) [address] [place] [address] CO2 [Moles/Vol] 29 mmol/L Normal 21-31 [facility] Comment on above: Performed By: #### L [id number] #### [facility] ([facility]) [address] [place] [address] Creatinine [Mass/Vol] 1.06 mg/dL Normal 0.70-1.30 [facility] Comment on above: Performed By: #### L [id number] #### [facility] ([facility]) [address] [place] [address] GLOMERULAR FILTRATION RATE ML/MIN/1.73 SQ M.PREDICTED 76.9 mL/min/1.73m*2 Normal >60.0 [facility] Comment on above: Result Comment: The [facility]???s estimated glomerular filtration rate (eGFR) will no longer include consideration of race in its calculation. The National Kidney Foundation???s eGFR Task Force developed new recommendations for the estimation of the glomerular filtration rate in the [place] They recommend immediate implementation of the new equation refit without the race variable in all laboratories because the calculation does not include race. In addition to not including race in the calculation and reporting, it included diversity in its development, and has acceptable performance characteristics and potential consequences that do not disproportionately affect any one group of individuals. Performed By: #### L [id number] #### [facility] ([facility] [address] [place] [address] Glucose [Mass/Vol] 259 mg/dL High 70-100 [facility] Comment on above: Performed By: #### L [id number] #### [facility] ([facility] [address] [place] [address] Potassium [Moles/Vol] 4.1 mmol/L Normal 3.5-5.1 [facility] Comment on above: Performed By: #### L [id number] #### [facility] ([facility]) [address] [place] [address] Protein [Mass/Vol] 7.7 g/dL Normal 6.0-8.3 [facility] Comment on above: Performed By: #### L [id number] #### [facility] ([facility]) [address] [place] [address] Sodium [Moles/Vol] 134 mmol/L Low 136-145 [facility] Comment on above: Performed By: #### L [id number] #### [facility] ([facility]) [address] [place] [address] Urea nitrogen [Mass/Vol] 11 mg/dL Normal 7-25 [facility] Comment on above: Performed By: #### L [id number] #### [facility] ([facility]) [address] [place] [address] UREA NITROGEN/CREATININE (MASS RATIO) IN SER/PLAS 10.4 Normal [facility] Comment on above: Performed By: #### L [id number] #### [facility] ([facility]) [address] [place] [address] LIPID PANELon 02-02-2023 CHOL/HDL 5.9 mg/dL Normal [facility] Comment on above: Performed By: #### L [id number] #### [facility] ([facility]) [address] [place] [address] Cholesterol [Mass/Vol] 290 mg/dL High 120-200 [facility] Comment on above: Performed By: #### L [id number] #### [facility] ([facility]) [address] [place] [address] Magnesium [Mass/Vol] 147 mg/dL Normal 40-149 [facility] Comment on above: Result Comment: TRIG LYCERIDE REFERENCE RANGE: 20 YEARS AND OLDER CARDIOVASCULAR RISK LESS THAN 150 mg/dL LOW RISK 150 TO 199 mg/dL BORDERLINE RISK 200 mg/dL AND GREATER HIGH RISK Performed By: #### L [id number] #### [facility] ([facility]) [address] [place] [address] Magnesium [Mass/Vol] 212 mg/dL High 0-160 [facility] Comment on above: Performed By: #### L [id number] #### [facility] ([facility]) [address] [place] [address] Magnesium [Mass/Vol] 49 mg/dL Normal 23-92 [facility] Comment on above: Performed By: #### L [id number] #### [facility] ([facility]) [address] [place] [address] NON HDL CHOL. (LDL+VLDL) 241 Normal [facility] Comment on above: Performed By: #### L [id number] #### [facility] ([facility]) [address] [place] [address] TOTAL VLDL-C 29 mg/dL Normal 0-40 [facility] Comment on above: Performed By: #### L [id number] #### [facility] ([facility]) [address] [place] [address] Labon 02-02-2023 Lab [id number] Eunice Marte 1955 M Date Provider Department Center 02/02/2023 2245-[facility] RESOURCE [facility] Family History Problem Relation Age of Onset Heart disease Mother 58 Heart disease Maternal Grandmother Comments: heart trouble Heart disease Maternal Grandfather Comments: heart trouble Family Status - Relation Status Age at Mother Father Mother's Sister Mother's Brother Father's Sister Father's Brother Maternal Grandmother Maternal Grandfather Paternal Grandmother Paternal Grandfather Other Normal [facility] Patient Educationon 02-03-20 23 Patient Education Oncology Prostate Cancer The prostate is a small gland that produces fluid that makes up semen (seminal fluid). It is located below the bladder in men, in front of the rectum. Prostate cancer is the abnormal growth of cells in the prostate gland. What are the causes? The exact cause of this condition is not known. What increases the risk? You are more likely to develop this condition if: ? You are 65 years of age or older. ? You have a family history of prostate cancer. ? You have a family history of breast and ovarian cancer. ? You have genes that are passed from parent to child (inherited), such as BRCA1 and BRCA2. ? You have Montez syndrome. men and men of descent are diagnosed with prostate cancer at higher rates than other men. The reasons for this are not well understood and are likely due to a combination of genetic and environmental factors. What are the signs or symptoms? Symptoms of this condition include: ? Problems with urination. This may include: ? A weak or interrupted flow of urine. ? Trouble starting or stopping urination. ? Trouble emptying the bladder all the way. ? The need to urinate more often, especially at night. ? Blood in urine or semen. ? Persistent pain or discomfort in the lower back, lower abdomen, or hips. ? Trouble getting an erection. ? Weakness or numbness in the legs or feet. How is this diagnosed? This condition can be diagnosed with: ? A digital rectal exam. For this exam, a health care provider inserts a gloved finger into the rectum to feel the prostate gland. ? A blood test called a prostate-specific antigen (PSA) test. ? A procedure in which a sample of tissue is taken from the prostate and checked under a microscope (prostate biopsy). ? An imaging test called transrectal ultrasonography. Once the condition is diagnosed, tests will be done to determine how far the cancer has spread. This is called staging the cancer. Staging may involve imaging tests, such as a bone scan, CT scan, PET scan, or MRI. Stages of prostate cancer The stages of prostate cancer are as follows: ? Stage 1 (I). At this stage, the cancer is found in the prostate only. The cancer is not visible on imaging tests, and it is usually found by accident, such as during prostate surgery. ? Stage 2 (II). At this stage, the cancer is more advanced than it is in stage 1, but the cancer has not spread outside the prostate. ? Stage 3 (III). At this stage, the cancer has spread beyond the outer layer of the prostate to nearby tissues. The cancer may be found in the seminal vesicles, which are near the bladder and the prostate. ? Stage 4 (IV). At this stage, the cancer has spread to other parts of the body, such as the lymph nodes, bones, bladder, rectum, liver, or lungs. Prostate cancer grading Prostate cancer is also graded according to how the cancer cells look under a microscope. This is called the [place] score and the total score can range from 6?10, indicating how likely it is that the cancer will spread (metastasize) to other parts of the body. The higher the score, the greater the likelihood that the cancer will spread. ? Tiskilwa 6 or lower: This indicates that the cancer cells look similar to normal prostate cells (well differentiated). ? Gilbert 7: This indicates that the cancer cells look somewhat similar to normal prostate cells (moderately differentiated). ? Gilbert 8, 9, or 10: This indicates that the cancer cells look very different than normal prostate cells (poorly differentiated). How is this treated? Treatment for this condition depends on several factors, including the stage of the cancer, your age, personal preferences, and your overall health. Talk with your health care provider about treatment options that are recommended for you. Common treatments include: ? Observation for early stage prostate cancer (active surveillance). This involves having exams, blood tests, and in some cases, more biopsies. For some men, this is the only treatment needed. ? Surgery. Types of surgeries include: ? Open surgery (radical prostatectomy). In this surgery, a larger incision is made to remove the prostate. ? A laparoscopic radical prostatectomy. This is a surgery to remove the prostate and lymph nodes through several small incisions. It is often referred to as a minimally invasive surgery. ? A robotic radical prostatectomy. This is laparoscopic surgery to remove the prostate and lymph nodes with the help of robotic arms that are controlled by the surgeon. ? Cryoablation. This is surgery to freeze and destroy cancer cells. ? Radiation treatment. Types of radiation treatment include: ? External beam radiation. This type aims beams of radiation from outside the body at the prostate to destroy cancerous cells. ? Brachytherapy. This type uses radioactive needles, seeds, wires, or tubes that are implanted into the prostate gland. Like external be (more content not included)... Normal [facility] Provider Letteron 02-02-2023 Provider Letter February 02, 2023 EUNICE MARTE [address] [place] [id number] : 1955 To Whom It May Concern, Please excuse above patient from work. Date of Appointments: From: 02/02/2023 To: _ May Return to Work On:02/03/2023 Restrictions: none Comments: Shayy Marte is with patient for all appointments, any question, please call our office Sincerely, [facility] [address], [place] [address] Normal [facility] Screenson 02-02-2023 Screens [id number] 1.00CD:127 Normal [facility] Screens [id number] 1.00CD:127 [facility] Consultation Noteon 02-02-20 Consultation Note [id number] .[id number]:127 [facility] Office Visiton 01-28-2023 Follow-up visit [id number] Eunice Marte 1955 M Date Provider Department Center 01/28/2023 [facility] Family History Problem Relation Age of Onset Heart disease Mother 58 Heart disease Maternal Grandmother Comments: heart trouble Heart disease Maternal Grandfather Comments: heart trouble Family Status - Relation Status Age at Mother Father Mother's Sister Mother's Brother Father's Sister Father's Brother Maternal Grandmother Maternal Grandfather Paternal Grandmother Paternal Grandfather Other Level of Service:31850 SC OFFICE/OP CONSLTJ NEW/EST PT MOD MDM 40 MINUTES Reason for Visit and Comments: Hypertension [687496] Normal [facility] PATH CONSULTon 01-27-2023 LAB AP CASE REPORT Normal [facility] Comment on above: Result Comment: PATH OLOGY CONSULT Case: [id number] Authorizing Provider: Phyllis Acosta MD Collected: 01/27/2023 1256 Ordering Location: [facility] Lab Received: 01/27/2023 1303 Pathologist: Nellie Escoto MD Specimens: A) - Prostate, Right Medial Base, Biopsy B) - Prostate, Right Lateral Mid, Biopsy C) - Prostate, right posterior D) - Prostate, Right posterior lateral E) - Prostate, Benign tissue F) - Prostate, MARÍA ELENA left peripheral zone mid G) - Prostate, Left anterior medial H) - Prostate, Left anterior lateral I) - Prostate, Left posterior medial J) - Prostate, Left posterior lateral K) - Prostate, left base Performed By: #### P ATH CONSULT ####[facility] ([facility])[address] [place] [address] LAB AP CLINICAL INFORMATION Order Diagnoses Normal [facility] Comment on above: Result Comment: N42. 89 - Other specified disorders of prostate [ICD-10-CM] Performed By: #### P ATH CONSULT ####[facility] ([facility])[address] [place] [address] LAB AP GROSS DESCRIPTION Normal [facility] Comment on above: Result Comment: A. P rostate, Right Medial [place] [address], are (2) two previously stained glass slides accessioned [id number]. The sildes are accomppained by a copy of the contributing pathologist report. B. Prostate, Right Lateral [place] [address], are (2) two previously stained glass slides accessioned [id number]. The sildes are accomppained by a copy of the contributing pathologist report. C. [place] [address], are (2) two previously stained glass slides accessioned [id number]. The sildes are accomppained by a copy of the contributing pathologist report. D. [place] [address], are (2) two previously stained glass slides accessioned [id number]. The sildes are accomppained by a copy of the contributing pathologist report. E. [place] [address], are (2) two previously stained glass slides accessioned [id number]. The sildes are accomppained by a copy of the contributing pathologist report. F. [place] [address], are (2) two previously stained glass slides accessioned [id number]. The sildes are accomppained by a copy of the contributing pathologist report. G. [place] [address], are (2) two previously stained glass slides accessioned [id number]. The sildes are accomppained by a copy of the contributing pathologist report. H. [place] [address], are (2) two previously stained glass slides accessioned [id number]. The sildes are accomppained by a copy of the contributing pathologist report. I. [place] [address], are (2) two previously stained glass slides accessioned [id number]. The sildes are accomppained by a copy of the contributing pathologist report. J. [place] [address], are (2) two previously stained glass slides accessioned [id number]. The sildes are accomppained by a copy of the contributing pathologist report. K. [place] [address], are (2) two previously stained glass slides accessioned [id number]. The sildes are accomppained by a copy of the contributing pathologist report. Performed By: #### P ATH CONSULT ####[facility] ([facility])[address] [place] [address] LAB AP MICROSCOPIC DESCRIPTION A-K. Microscopic examination performed Normal [facility] Comment on above: Performed By: #### P ATH CONSULT ####[facility] ([facility])[address] [facility] [place] [address] LAB AP REPORT FINAL DIAGNOSIS NARRATIVE Normal [facility] Comment on above: Result Comment: A. P rostate, right anterior medial, biopsy (OSS# [id number], 2 slides collected on 07-06-2022): Benign prostate tissue with focal chronic inflammation. Negative for carcinoma. B. Prostate, right anterior lateral, biopsy (OSS# [id number], 2 slides collected on 07-06-2022): Benign prostate tissue. Negative for carcinoma. C. Prostate, right posterior medial, biopsy (OSS# [id number], 2 slides collected on 07-06-2022): Benign prostate tissue with focal chronic inflammation. Negative for carcinoma. D. Prostate, right posterior lateral biopsy (OSS# [id number], 2 slides collected on 07-06-2022): Benign prostate tissue with focal chronic inflammation. Negative for carcinoma. E. Prostate, right base, biopsy (OSS# [id number], 2 slides collected on 07-06-2022): Benign prostate tissue with focal chronic inflammation. Negative for carcinoma. F. Prostate, MARÍA ELENA left peripheral zone mid, biopsy (OSS# [id number] 2 slides collected on 07-06-2022): Prostatic adenocarcinoma, Gilbert score 7 (3+4); Grade group 2. [place] pattern 4: 40%; Cribriform grade 4: Not identified. Total number of cores: 4; number of cores involved by carcinoma: 3 (discontinuous involvement of 3rd core). Tumor volume: 29%. Greatest involvement of individual core: 50%; length: 6 mm. Perineural invasion: Present. G. Prostate, left anterior medial, biopsy (OSS# [id number], 2 slides collected on 07-06-2022): Prostatic adenocarcinoma, Gilbert score 7 (3+4); Grade group 2. [place] pattern 4: 45%; Cribriform grade 4: Not identified. Total number of cores: 2; number of cores involved by carcinoma: 2. Tumor volume: 93%. Greatest involvement of individual core: 91%; length: 10 mm. Perineural invasion: Present. H. Prostate, left anterior lateral, biopsy (OSS# [id number], 2 slides collected on 07-06-2022): Benign prostate tissue with focal chronic inflammation. Negative for carcinoma. I. Prostate, left posterior medial, biopsy (OSS# [id number], 2 slides collected on 07-06-2022): Benign prostate tissue with chronic inflammation. Negative for carcinoma. J. Prostate, left posterior lateral, biopsy (OSS# [id number], 2 slides collected on 07-06-2022): Focal high grade prostatic intraepithelial neoplasia. K. Prostate, left posterior lateral, biopsy (OSS# [id number], 2 slides collected on 07-06-2022): Focal high grade prostatic intraepithelial neoplasia. Performed By: #### P ATH CONSULT ####[facility] ([facility])[address] [place] [address] 36on 01-11-[address] Acosta office called to schedule patient appointment for surgery clearance. Patient was scheduled for 01/28/23. Dr. Acosta office stated patient will need to be seen before this date. Please advise. Normal [facility] Telephoneon 01-11-2023 Telephone [id number] Holliday 1955 M Date Provider Department Center 01/11/2023 SAMREEN DOZIER [facility] Family History Problem Relation Age of Onset Heart disease Mother 58 Heart disease Maternal Grandmother Comments: heart trouble Heart disease Maternal Grandfather Comments: heart trouble Family Status - Relation Status Age at Mother Father Mother's Sister Mother's Brother Father's Sister Father's Brother Maternal Grandmother Maternal Grandfather Paternal Grandmother Paternal Grandfather Other Normal [facility] Consultation Noteon 12-09-19 Consultation Note [id number] .[id number]:127 Normal [facility] Office Visiton 12-07-2022 Follow-up visit [id number] Eunice Marte 1955 M Date Provider Department Center 12/07/2022 397-PHYLLIS ACOSTA [facility] ONC DCC Family History Family Status - Relation Status Age at Father Mother Mother's Sister Mother's Brother Father's Sister Father's Brother Paternal Grandmother Paternal Grandfather Maternal Grandmother Maternal Grandfather Other Level of Service:43520 SC OFFICE/OUTPATIENT ESTABLISHED HIGH MDM 40-54 MIN Reason for Visit and Comments: New Patient [632] - Prostate CA/referral DR. Johnson [facility] Office Visiton 11-30-2022 Follow-up visit [id number] Eunice Marte 1955 M Date Provider Department Center 11/30/2022 435-JOSE RAMOS [facility] URO [address] No family history on file Level of Service:04034 SC OFFICE/OUTPATIENT NEW MODERATE MDM 45-59 MINUTES Reason for Visit and Comments: Follow-up [731293] - Prostate cancer referral [facility] Ambulatory Visit Summaryon 0 11-03-2022 Ambulatory Visit Summary EUNICE MARTE :1955 Visit Date:11/03/2022 Ambulatory Visit Instructions Your Diagnosis Prostate cancer Enlarged prostate with urinary obstruction Nocturia Erectile dysfunction Tests Performed Urnls Dip Stick Auto w/o Microscopy POC 94387 Your Care Team Attending Physician - Dewey COTTO, Milvia Lucia Primary Care Physician - ADILSON SALAZAR MD This Is Your Medications List Contact prescribing physician if questions or concerns albuterol-ipratropium (DuoNeb 2.5 mg-0.5 mg/3 mL Soln-Inh) amlodipine (amLODIPine 10 mg Tab) aspirin (aspirin 81 mg Oral EC Tab) atorvastatin (atorvastatin 80 mg Tab) budesonide (budesonide 0.5 mg/2 mL Inh Susp) cholecalciferol (cholecalciferol 2000 intl units oral tablet (Vitamin D3)) glipiZIDE (glipiZIDE 10 mg Tab) hydrochlorothiazide-l isinopril (hydrochlorothiazide- lisinopril 12.5 mg-20 mg Tab) insulin lispro-insulin lispro protamine (Humalog Mix 75/25 KwikPen) metformin (metformin 500 mg ER Tab) mirabegron (Myrbetriq 50 mg oral tablet, extended release) montelukast (montelukast 10 mg Tab) pioglitazone (pioglitazone 30 mg Tab) polycarbophil (FiberCon 625 mg Tab) tamsulosin (tamsulosin 0.4 mg Cap) triamcinolone topical (triamcinolone Top 0.5% Crm) Procedures Performed Biopsy of prostate (07/06/2022), Transrectal biopsy of prostate using ultrasound (US) guidance (09/08/2020), Colonoscopy (2011), Arthroplasty of knee, Arthroscopy of shoulder, CE - Cataract extraction, Insertion of catheter into spinal canal for infusion of therapeutic substance, Lumbar discectomy. Discharge Vitals Heart Rate (Peripheral) 77 Blood Pressure 131/81 Height 183 cm Height 72 in Weight 110 kg Weight 242 lb BMI 32.85 What to do next Scheduled Follow-Up Appointments Tuesday. 2022 10:15 AM EDT With: Dewey COTTO, Milvia Lucia Where: [facility] Patient Educationon 11-04-19 23 Patient Education Oncology Prostate Cancer The prostate is a walnut-sized gland that is involved in the production of semen. It is located below a man's bladder, in front of the rectum. Prostate cancer is the abnormal growth of cells in the prostate gland. What are the causes? The exact cause of this condition is not known. What increases the risk? This condition is more likely to develop in men who: ? Are older than age 65. ? Are -Surinamese. ? Are obese. ? Have a family history of prostate cancer. ? Have a family history of breast cancer. What are the signs or symptoms? Symptoms of this condition include: ? A need to urinate often. ? Weak or interrupted flow of urine. ? Trouble starting or stopping urination. ? Inability to urinate. ? Pain or burning during urination. ? Painful ejaculation. ? Blood in urine or semen. ? Persistent pain or discomfort in the lower back, lower abdomen, hips, or upper thighs. ? Trouble getting an erection. ? Trouble emptying the bladder all the way. How is this diagnosed? This condition can be diagnosed with: ? A digital rectal exam. For this exam, a health care provider inserts a gloved finger into the rectum to feel the prostate gland. ? A blood test called a prostate-specific antigen (PSA) test. ? An imaging test called transrectal ultrasonography. ? A procedure in which a sample of tissue is taken from the prostate and examined under a microscope (prostate biopsy). Once the condition is diagnosed, tests will be done to determine how far the cancer has spread. This is called staging the cancer. Staging may involve imaging tests, such as: ? A bone scan. ? A CT scan. ? A PET scan. ? An MRI. The stages of prostate cancer are as follows: ? Stage I. At this stage, the cancer is found in the prostate only. The cancer is not visible on imaging tests and it is usually found by accident, such as during a prostate surgery. ? Stage II. At this stage, the cancer is more advanced than it is in stage I, but the cancer has not spread outside the prostate. ? Stage III. At this stage, the cancer has spread beyond the outer layer of the prostate to nearby tissues. The cancer may be found in the seminal vesicles, which are near the bladder and the prostate. ? Stage IV. At this stage, the cancer has spread other parts of the body, such as the lymph nodes, bones, bladder, rectum, liver, or lungs. How is this treated? Treatment for this condition depends on several factors, including the stage of the cancer, your age, personal preferences, and your overall health. Talk with your health care provider about treatment options that are recommended for you. Common treatments include: ? Observation for early stage prostate cancer (active surveillance). This involves having exams, blood tests, and in some cases, more biopsies. For some men, this is the only treatment needed. ? Surgery. Types of surgeries include: ? Open surgery. In this surgery, a larger incision is made to remove the prostate. ? A laparoscopic prostatectomy. This is a surgery to remove the prostate and lymph nodes through several, small incisions. It is often referred to as a minimally invasive surgery. ? A robotic prostatectomy. This is a surgery to remove the prostate and lymph nodes with the help of a robotic arm that is controlled by a computer. ? Orchiectomy. This is a surgery to remove the testicles. ? Cryosurgery. This is a surgery to freeze and destroy cancer cells. ? Radiation treatment. Types of radiation treatment include: ? External beam radiation. This type aims beams of radiation from outside the body at the prostate to destroy cancerous cells. ? Brachytherapy. This type uses radioactive needles, seeds, wires, or tubes that are implanted into the prostate gland. Like external beam radiation, brachytherapy destroys cancerous cells. An advantage is that this type of radiation limits the damage to surrounding tissue and has fewer side effects. ? High-intensity, focused ultrasonography. This treatment destroys cancer cells by delivering high-energy ultrasound waves to the cancerous cells. ? Chemotherapy medicines. This treatment kills cancer cells or stops them from multiplying. ? Hormone treatment. This treatment involves taking medicines that act on one of the male hormones (testosterone): ? By stopping your body from producing testosterone. ? By blocking testosterone from reaching cancer cells. Follow these instructions at home: ? Take xmui-mzy-lqlsmow and prescription medicines only as told by your health care provider. ? Maintain a healthy diet. ? Get plenty of sleep. ? Consider joining a support group for men who have prostate cancer. Meeting with a support group may help you learn to cope with the stress of having cancer. ? Keep all follow-up visits as told by your health care provider. This is important. ? If you have to go to the hospital, notify your cancer specialis (more content not included)... Normal [facility] Urology Office/Clinic Noteon 11-03-2022 Urology Office/Clinic Note Chief Complaint Pt is here for 1 month w/ PSA HPI Staff Eunice is a 66 y.o. male here for 1 month follow up w/ PSA. Previous Dx: BPH w/ urinary obstruction, CKD, ED, incontinence of urine, nocturia, prostate cancer, urgency of urination, S/P biopsy of prostate done on 07/06/22, TRUS/bx done on 09/08/20. Current PSA 8.2 & 5% done on 10/25/22. Previous PSA 11.09 done on 01/26/22. Dysuria: denies Incomplete bladder emptying: denies Hematuria: denies Frequency: yes Urgency: yes Nocturia: 3-4x a night Stream: steady stream Leaking: denies Post void dripping: denies Wearing pads/ Depends: denies Urge incontinence: denies Stress incontinence: denies Incontinence without Sensory Awareness: denies Abdominal pain: denies Flank pain: denies Sexual complaints: _ History of Present Illness Tests reviewed: reviewed UA, PSA. I have reviewed the previous health record information and history for this patient from Dr. Palomo. I have reviewed and verified the staff HPI to be accurate for this encounter. There have been no associated fever, chills, flank pain, or blood in the urine. Denies any urinary infections since last encounter. Review of Systems PHQ Score Initial Depression Screen Score: 0 ROS - Provider Constitutional: denies weight loss, denies hot flashes. Eyes: denies eye problems. Gastrointestinal: denies nausea, denies vomiting. Cardiovascular: denies chest pain or angina. Integumentary: no dryness Musculoskeletal: denies musculoskeletal symptoms. ENMT: denies otolaryngeal symptoms. Respiratory: no shortness of breath. Heme/Lymph: denies easy bleeding tendency, denies easy bruising tendency. Psychiatric: no confusion, no anxiety. Genitourinary: See HPI. Physical Exam Vitals & Measurements HR: 77(Peripheral) BP: 131/81 HT: 72 in HT: 183 cm WT: 110 kg WT: 242 lb BMI: 32.85 General Appearance: alert, no distress, well nourished, well developed male. Genitourinary: Flank Pain: none. Bladder: nonpalpable. Assessment/Plan Pt would like to proceed with radical prostatectomy. Follow up after below or sooner if needed. Pt understands and agrees with plan. -refer to [facility] for Retzius sparing RALP given IPP - will call again today given pt has not heard from them for an appt 1. Prostate cancer (C61: Malignant neoplasm of prostate) 66 yo AA Male with newly diagnosed unfavorable intermediate risk cT1c prostate cancer Grade group 2 in 11/09 cores, iPSA 11.09, PSAD 0.23. (2 IRF) PSA: 04/06/21 - 7.2, 5.3% free 10/03/21 - 6.8 and 5.7% free 01/26/22 - 11.09 10/25/22 - 8.2 & 5.0% -Prior TRUS/Bx by MARCUS 08/2020 was negative -MRI prostate 05/26/22 - PIRADS 4 lesion in the peripheral zone mid gland measuring approximately 8x8mm, abnormal enhancement is noted as well. T1/T2 hypointense lesion is seen involving the right ischial tuberosity. Prostate vol 48mL -S/p MRI fusion Transperineal Prostate Bx done 07/06/22 - pathology: prostate adenocarcinoma Grade group 2 in +3/21 cores , 81% involved (including MARÍA ELENA LT peripheral zone mid, same region as + core on standard bx). No cribiform. -PSMA PET scan done 09/20/22 shows subtle focal activity is seen involving the anterior aspect the left portion of the prostate gland. No PSMA evidence of local or distant metastatic disease. -Decipher done 09/16/22 shows high genomic risk 0.73. Risk of mets with RT or RP: 5 yr - 4.3%. 10 yr - 10.8%. Risk of Prostate Ca Mortality with RT or RP 15 yr - 13.5%. -Seen by Dr. Hassan 09/22/22 - RT x 4 wks recommended if proceeding Was referred to [facility] for retzius sparing prostatectomy consult, has yet to be contacted. Pt still wants to procedure with surgical intervention over radiation. Follow up 2-3 mos or sooner if needed. Pt understands and agrees with plan. -contact [facility], will call pt with update. Pt to call our office if they do not hear from [facility] in 2-3 wks 2. Enlarged prostate with urinary obstruction (N40.1: Benign prostatic hyperplasia with lower urinary tract symptoms) Pt taking Myrbetriq 50 mg QD. Pt started Oxybutynin 5 mg ER QD in conjunction with Myrbetriq at prior OV in the morning for frequency, urgency. Oxybutynin has improved urgency and frequency a little bit. Can take 2 tabs at a time. Tolerating well, denies constipation -cont Oxybutynin 5 mg ER QD, can increase to 10 mg -cont Myrbetriq 3. Nocturia (R35.1: Nocturia) Ongoing, unchanged 3-4x/night. Has sleep apnea. Contributes to increased urine production. -Recommend CPAP compliance, behavioral modifications 4. Erectile dysfunction (N52.9: Male erectile dysfunction, unspecified) Not a priority at this time. Pt already has a penile prosthesis pump, does not use it. Has had for at least 10 yrs. Had implanted in [place]. Increased complications for prostatectomy/IPP infection, recommend referral to tertiary center for retzius sparing prostatectomy. -diabetes control -overall health Follow-up With When Contact Information Dewey COTTO, Milvia Lucia, URL, URO (more content not included)... Normal [facility] Comment on above: Result Comment: Elec tronically Signed By: Milvia Palomo MD\.br\Date and Time Signed: 11/03/22 08:40 EDT\.br\Electronically Co-Signed By: Gifty Mann\.br\Date and Time Co-Signed: 11/03/22 08:35 EDT Lab Reportson 10-26-2022 Lab Reports [id number] .00CD:127 Normal [facility] PSA, FREE AND TOTAL RATIOon 10-26-2022 % Free PSA 5.0 % Normal [facility] Comment on above: Result Comment: The table below lists the probability of prostate cancer for men with non-suspicious BHUPINDER results and total PSA between 4 and 10 ng/mL, by patient age (Trisha et al, MARIE 1998, 279:1542). % Free PSA 50-64 yr 65-75 yr 0.00-10.00% 56% 55% 10.01-15.00% 24% 35% 15.01-20.00% 17% 23% 20.01-25.00% 10% 20% >25.00% 5% 9% Please note: Trisha et al did not make specific recommendations regarding the use of percent free PSA for any other population of men. Performed By: #### P TT, PT #### [facility] [address] [place] [address] Dr. Marcell Luque Prostate specific Ag [Mass/Vol] 8.2 ng/mL Critically high 0.0-4.0 [facility] Comment on above: Result Comment: Anamika DENIS methodology. . According to the [place] [employer], Serum PSA should decrease and remain at undetectable levels after radical prostatectomy. The AUA defines biochemical recurrence as an initial PSA value 0.2 ng/mL or greater followed by a subsequent confirmatory PSA value 0.2 ng/mL or greater. Values obtained with different assay methods or kits cannot be used interchangeably. Results cannot be interpreted as absolute evidence of the presence or absence of malignant disease. Performed By: #### P TT, PT #### [facility] [address] [place] [address] Dr. Marcell Luque PSA, Free 0.41 ng/mL Normal N/A [facility] Comment on above: Result Comment: Anamika DENIS methodology. Performed By: #### P TT, PT #### [facility] [address] [address] [address] Marcell Luque Auth for Release of Medical Recordson 10-25-2022 Auth for Release of Medical Records [id number] .[id number]:127 Normal [facility] Screenson 10-11-2022 Screens [id number] #[id number]:127 Normal [facility] Screens [id number] .[id number]:127 Normal [facility] Ambulatory Visit Summaryon 0 10-06-2022 Ambulatory Visit Summary LYDIAEUNICE :1955 Visit Date:10/06/2022 Ambulatory Visit Instructions Your Diagnosis Prostate cancer BPH with urinary obstruction Nocturia Erectile dysfunction Tests Performed Urnls Dip Stick Auto w/o Microscopy POC 50977 Your Care Team Attending Physician - Dewey COTTO, Milvia Lucia Primary Care Physician - ADILSON SALAZAR MD This Is Your Medications List mirabegron (Myrbetriq 50 mg oral tablet, extended release) Contact prescribing physician if questions or concerns albuterol-ipratropium (DuoNeb 2.5 mg-0.5 mg/3 mL Soln-Inh) amlodipine (amLODIPine 10 mg Tab) aspirin (aspirin 81 mg Oral EC Tab) atorvastatin (atorvastatin 80 mg Tab) budesonide (budesonide 0.5 mg/2 mL Inh Susp) cholecalciferol (cholecalciferol 2000 intl units oral tablet (Vitamin D3)) glipiZIDE (glipiZIDE 10 mg Tab) hydrochlorothiazide-l isinopril (hydrochlorothiazide- lisinopril 12.5 mg-20 mg Tab) insulin lispro-insulin lispro protamine (Humalog Mix 75/25 KwikPen) metformin (metformin 500 mg ER Tab) montelukast (montelukast 10 mg Tab) pioglitazone (pioglitazone 30 mg Tab) polycarbophil (FiberCon 625 mg Tab) tamsulosin (tamsulosin 0.4 mg Cap) triamcinolone topical (triamcinolone Top 0.5% Crm) Procedures Performed Biopsy of prostate (07/06/2022), Transrectal biopsy of prostate using ultrasound (US) guidance (09/08/2020), Colonoscopy (2011), Arthroplasty of knee, Arthroscopy of shoulder, CE - Cataract extraction, Insertion of catheter into spinal canal for infusion of therapeutic substance, Lumbar discectomy. Discharge Vitals Height 183 cm Height 72 in Weight 110.3 kg Weight 242.66 lb BMI 32.94 What to do next Scheduled Follow-Up Appointments Tuesday. 2022 10:10 AM EDT With: Milvia Palomo MD Where: [facility] Patient Educationon 10-06-19 23 Patient Education Obstetrics and Gynecology Kegel Exercises Kegel exercises can help strengthen your pelvic floor muscles. The pelvic floor is a group of muscles that support your rectum, small intestine, and bladder. In females, pelvic floor muscles also help support the womb (uterus). These muscles help you control the flow of urine and stool. Kegel exercises are painless and simple, and they do not require any equipment. Your provider may suggest Kegel exercises to: ? Improve bladder and bowel control. ? Improve sexual response. ? Improve weak pelvic floor muscles after surgery to remove the uterus (hysterectomy) or (females). ? Improve weak pelvic floor muscles after prostate gland removal or surgery (males). Kegel exercises involve squeezing your pelvic floor muscles, which are the same muscles you squeeze when you try to stop the flow of urine or keep from passing gas. The exercises can be done while sitting, standing, or lying down, but it is best to vary your position. Exercises How to do Kegel exercises: 1. Squeeze your pelvic floor muscles tight. You should feel a tight lift in your rectal area. If you are a female, you should also feel a tightness in your vaginal area. Keep your stomach, buttocks, and legs relaxed. 2. Hold the muscles tight for up to 10 seconds. 3. Breathe normally. 4. Relax your muscles. 5. Repeat as told by your health care provider. Repeat this exercise daily as told by your health care provider. Continue to do this exercise for at least 4?6 weeks, or for as long as told by your health care provider. You may be referred to a physical therapist who can help you learn more about how to do Kegel exercises. Depending on your condition, your health care provider may recommend: ? Varying how long you squeeze your muscles. ? Doing several sets of exercises every day. ? Doing exercises for several weeks. ? Making Kegel exercises a part of your regular exercise routine. This information is not intended to replace advice given to you by your health care provider. Make sure you discuss any questions you have with your health care provider. Document Released: 07/25/2013 Document Revised: 03/28/2019 Document Reviewed: 03/28/2019 [employer] Patient Education ? 2020 [employer]. Oncology Brachytherapy for Prostate Cancer Brachytherapy for prostate cancer is radiation treatment that is placed inside of the prostate (prostate gland). There are several types of brachytherapy: ? Low-dose rate (LDR) therapy. This may involve temporary implants or permanent radioactive seed or pellet implants. The radiation does not travel far from the prostate, which means that healthy, noncancerous tissues around the prostate receive only a small dose of radiation. This helps to protect those tissues from injury. This type of treatment may be followed by a course of external beam radiation. ? Temporary low-dose implants are left in the prostate for 1?7 days. The implants are needles, applicators, or thin, plastic tubes (catheters) that contain radioactive material. You will need to stay in the hospital while the implant is in place. ? Permanent low-dose implants (seeds or pellets) are injected into the prostate, and they work for up to one year after they are inserted. They are left in place and are not removed. ? High-dose rate (HDR) therapy. This is given through needles, applicators, or catheters that contain radioactive material. The tubes are removed after treatment, and no radiation is left in the prostate. This type of treatment may be followed by a course of external beam radiation. Tell a health care provider about: ? Any allergies you have. ? All medicines you are taking, including vitamins, herbs, eye drops, creams, and crqb-mei-uleixzv medicines. ? Any problems you or family members have had with anesthetic medicines. ? Any surgeries you have had. ? Any blood disorders you have. ? Any medical conditions you have. What are the risks? Generally, this is a safe procedure. However, problems may occur, including: ? Inflammation of the rectum. ? Problems getting or keeping an erection (erectile dysfunction). ? Trouble urinating. ? Diarrhea. ? Bleeding. ? Loss of bowel control. What happens before the procedure? Staying hydrated Follow instructions from your health care provider about hydration, which may include: ? Up to 2 hours before the procedure ? you may continue to drink clear liquids, such as water, clear fruit juice, black coffee, and plain tea. Eating and drinking Follow instructions from your health care provider about eating and drinking, which may include: ? 8 hours before the procedure ? stop eating heavy meals or foods such as meat, fried foods, or fatty foods. ? 6 hours before the procedure ? stop eating light meals or foods, such as toast or cereal. ? 6 hours before the procedure ? stop drinking milk or drinks that c (more content not included)... [facility] Provider Letteron 10-06-2022 Provider Letter October 06, 2022 EUN[address]TE [address] [place] [address] EUNICE MARTE 1955 To Whom It May Concern, Please excuse above patient from work. Date of Appointment: From: 10/06/2022 To: May Return to Work On:10/06/2022 Restrictions: Comments: Any questions, please call our office. Sincerely, [facility] [address], [place] [address] [facility] Urology Office/Clinic Noteon 10-06-2022 Urology Office/Clinic Note Chief Complaint 2 month f/u to discuss treatment. HPI Staff 2m to discuss PSMA PET scan & Tx options due to newly Dx'd w/Prostate Cancer. Additional DX: BPH & ED *Myrbetriq 50mg QD therapy PSMA PET scan done 09/20/[address] Hassan 09/22/22 Decipher Testing done 09/16/22 Pt does not always feel empty when he is done voiding, Nocturia 3x, denies leaking or dribbling. History of Present Illness Tests reviewed: PSMA PET scan, decipher results, consult note. I have reviewed the previous health record information and history for this patient from Dr. Palomo and Dr. Hassan. I have reviewed and verified the staff HPI to be accurate for this encounter. There have been no associated fever, chills, flank pain, or blood in the urine. Denies any urinary infections since last encounter. Review of Systems PHQ Score Initial Depression Screen Score: 0 ROS - Provider Constitutional: denies weight loss, denies hot flashes. Eyes: denies eye problems. Gastrointestinal: denies nausea, denies vomiting. Cardiovascular: denies chest pain or angina. Integumentary: no dryness Musculoskeletal: mild musculoskeletal symptoms. ENMT: denies otolaryngeal symptoms. Respiratory: no shortness of breath. Heme/Lymph: denies easy bleeding tendency, denies easy bruising tendency. Psychiatric: no confusion, no anxiety. Genitourinary: See HPI. Physical Exam Vitals & Measurements HT: 72 in HT: 183 cm WT: 110.3 kg WT: 242.66 lb BMI: 32.94 General Appearance: alert, no distress, well nourished, well developed male. ambulates with cane Genitourinary: Flank Pain: none. Bladder: nonpalpable. Assessment/Plan Mother in 50s, father in 90s. Hx IPP > 10 yrs ago in [place]. No prior abd surgeries. Hx L5 fusion, knee and shoulder. Ambulates with cane. Denies hx of stroke/heart attack. 1. Prostate cancer (C61: Malignant neoplasm of prostate) 66 yo AA Male with newly diagnosed unfavorable intermediate risk cT1c prostate cancer Grade group 2 in 11/09 cores, iPSA 11.09, PSAD 0.23. (2 IRF) PSA: 04/06/21 - 7.2, 5.3% free 10/03/21 - 6.8 and 5.7% free 01/26/22 - 11.09 -Prior TRUS/Bx by [facility] 08/2020 was negative -MRI prostate 05/26/22 - PIRADS 4 lesion in the peripheral zone mid gland measuring approximately 8x8mm, abnormal enhancement is noted as well. T1/T2 hypointense lesion is seen involving the right ischial tuberosity. Prostate vol 48mL -S/p MRI fusion Transperineal Prostate Bx done 07/06/22 - pathology: prostate adenocarcinoma Grade group 2 in +3/ cores , 81% involved (including MARÍA ELENA LT peripheral zone mid, same region as + core on standard bx). No cribiform. -PSMA PET scan done 09/20/22 shows subtle focal activity is seen involving the anterior aspect the left portion of the prostate gland. No PSMA evidence of local or distant metastatic disease. -Decipher done 09/16/22 shows high genomic risk 0.73. Risk of mets with RT or RP: 5 yr - 4.3%. 10 yr - 10.8%. Risk of Prostate Ca Mortality with RT or RP 15 yr - 13.5%. -Seen by Dr. Hassan 09/22/22 - RT x 4 wks Explained decipher and PET scan findings. Will possibly need additional therapies in the future after radiation or surgery if cancer were to return. Thoroughly counseled pt on surgical intervention (leaking) risks and benefits vs radiation (increased frequency, urgency). Pt still think about his options for treatment. Follow up after below or sooner if needed. Pt understands and agrees with plan. -refer to [facility] for Retzius sparing RALP given IPP -PSA level -practice Gabbi (educational sheet provided) 2. BPH with urinary obstruction (N40.1: Benign prostatic hyperplasia with lower urinary tract symptoms) PVR today 27 cc. IPSS 17 (3) - Mainly urgency, frequency. Pt continues taking Myrbetriq 50 mg QD. UA neg for UTI. Pt reports diabetes is controlled, unsure of recent sugar level or A1C. Denies burning. Discussed adding new med to help with urgency/frequency. Pt unsure if Flomax helped. HCTZ can increase frequency. Pt to start Oxybutynin 5 mg ER QD in the morning. SEs discussed. Rx sent to [facility]. -start Oxybutynin 5 mg ER QD , continue Myrbetriq -bowel regimen (fiber, water) 3. Nocturia (R35.1: Nocturia) 3-4x/night. Has sleep apnea. Explained this causes increased urine production. -Recommend CPAP compliance, behavioral modifications 4. Erectile dysfunction (N52.9: Male erectile dysfunction, unspecified) THANH 1 (3). Not a priority at this time Pt already has a penile prosthesis pump, does not use it. Has had for at least 10 yrs. Had implanted in [facility]. Increased complications for prostatectomy/IPP infection, recommend referral to tertiary center for retzius sparing prostatectomy -diabetes control -overall health Follow-up With When Contact Information Dewey COTTO, Milvia Lucia, URL, URO Additional Instructions: f/u 1 month Patient Education Kegel Exercises Brachytherapy for Prostate Cancer Laparoscopic Prostatectomy Prostate Cancer I, Gifty Dean (more content not included)... [facility] Comment on above: Result Comment: Elec tronically Signed By: Milvia Palomo MD\.br\Date and Time Signed: 10/06/22 08:48 EST\.br\Electronically Co-Signed By: Gifty Mann\.br\Date and Time Co-Signed: 10/06/22 08:37 EST Lab Reportson 09-27-2022 Lab Reports [id number] .00CD:127 [facility] Reference Lab Reporton 09-27 Reference Lab Report [id number] .00CD:127 [facility] Consultation Noteon 09-24-19 Consultation Note [id number] .00CD:127 [facility] RAD - Pet Scan Reporton RAD - Pet Scan Report [id number] .00CD:127 [facility] PET tumor tx strat sb-mt [facility] Aon 09-20-2022 PET tumor tx strat sb-mt PSMA [facility] [place] [address] Nuclear Medicine Report Signed Patient: Eunice Marte MR#: [id number] : 1955 Acct:[id number] Age/Sex: 66 / M ADM Date: 09/20/22 Loc: Room: Type: [facility] Attending Dr: Milvia Palomo MD Copies to: Jhonny Sarabia Jr, DO Milvia Palomo MD Ordering Provider: Milvia Palomo MD Date of Service: 09/20/22 PET/PET tumor tx strat sb-mt PSMA: PROSTATE PET/CT FUSION IMAGING PSMA CLINICAL INFORMATION: Prostate cancer COMPARISON : Prostate MRI 05/26/2022 TECHNIQUE: Noncontrasted CT scan from the base of the skull to the upper thigh followed by PET imaging. Multiplanar PET/CT fusion images. The F-18 pifluolastat amount : 8.43mCi. FINDINGS: Neck: No abnormal activity. Chest:No abnormal activity Abdomen/pelvis: No abnormal activity is seen within the abdomen. No abnormal lymph nodes are seen within the pelvis. Subtle focal activity is identified involving the anterior aspect of the left portion of the prostate gland. Soft tissue/bones: No abnormal activity. CT findings: No pericardial or pleural effusions. No pneumothorax. Right lower lobe atelectasis/scarring. No free air or free fluid. Cystic changes involving the kidneys. Penile prosthesis is in place. PET/PET tumor tx strat sb-mt PSMA IMPRESSION: Subtle focal activity is seen involving the anterior aspect the left portion of the prostate gland. Residual tumor cannot be excluded. No PSMA may evidence of local or distant metastatic disease. Impression dictated by: Jhonny Sarabia Jr., D.O.09/20/2022 3:47 PM Dictation Location: [place] [address] Transcribed By: [facility] 09/20/22 1547 Dictated By: Jhonny Sarabia Jr, DO 09/20/22 1541 Signed By: 09/20/22 1547 [facility] Formson 09-10-2022 Forms [id number] .00CD:127 [facility] RAD - CT Reporton 08-20-2022 RAD - CT Report [id number] .00CD:127 [facility] Lab Reportson 08-09-2022 Lab Reports [id number] .00CD:127 [facility] CREATININEon 08-06-2022 Creatinine [Mass/Vol] 0.99 mg/dL Normal 0.70-1.30 [facility] Comment on above: Performed By: #### C MATI #### [facility] [address] [place], [place] [address] Dr. Marcell Luque EGFR-AF GIBRALTARIAN >60 Normal >=60 [facility] Comment on above: Performed By: #### C MATI #### [facility] [address] [place], [place] [address] Dr. Mracell Luque EGFR-NON AF GIBRALTARIAN >60 Normal >=60 [facility] Comment on above: Performed By: #### C MATI #### [facility] [address] [place], [place] [address] ABD/PELV W CONon 08-06-20 CT ABD/PELV W CON EXAMINATION: CT ABD/PELV W CON HISTORY: Left lower quadrant pain for 2-3 months COMPARISON: CT abdomen pelvis 08/28/2016 TECHNIQUE: Axial, Coronal, and Sagittal images were obtained without and/or with IV contrast as indicated by examination type. Dose reduction techniques were achieved by using automated exposure control and/or adjustment of mA and/or kV according to patient size and/or use of iterative reconstruction technique. FINDINGS: LUNG BASES: 14 x 14 mm nodule with adjacent thick strandy opacity within right posterior cardiophrenic angle. LIVER: No enlargement, atrophy, suspicious density, or significant focal lesion. BILIARY: No dilatation or calcification. PANCREAS: No lesion, fluid collection, or abnormal duct dilatation. SPLEEN: No enlargement or focal lesion. ADRENALS: No mass or enlargement. KIDNEYS: Benign-appearing renal cysts bilaterally. No mass, obstruction, or calcification. BOWEL/MESENTERY: Diverticulosis of sigmoid colon without acute inflammatory changes. No visible mass, obstruction, or bowel wall thickening. AORTA/VASCULAR: No aneurysm or dissection. RETROPERITONEUM: No mass or adenopathy. LYMPH NODES: No adenopathy. URINARY BLADDER: Circumferential wall thickening of urinary bladder. PELVIC ORGANS: No visible mass. Pelvic organs appropriate for patient age. ABDOMINAL WALL: No mass or hernia. BONES: Posterior mechanical fusion L5-S1 with intervertebral disc spacer. Heterogeneous marrow cavity of the right ilium without appreciable asymmetric enlargement. OTHER: Negative. IMPRESSION: 1. Abnormal wall thickening of the urinary bladder suggestive of cystitis. 2. Minimal increase in size of the right posterior costophrenic angle nodule and adjacent thickened scarring compared to 2017; findings favor benign etiology. 3. Sigmoid diverticulosis. 4. Heterogeneous bone marrow cavity within right ilium; asymmetric compared to left which is suggestive of Paget's disease; but no significant enlargement of the ileum. Electronically authenticated by: SUELLEN MAYO Date: 2022-08-06 16:00 [facility] Physician Orderon 08-05-2022 Physician Order [id number] .00CD:127 [facility] Screenson 08-05-2022 Screens [id number] .00CD:127 [facility] Screens [id number] .00CD:127 [facility] Patient Educationon 08-04-20 Patient Education Oncology Brachytherapy for Prostate Cancer Brachytherapy for prostate cancer is radiation treatment that is placed inside of the prostate (prostate gland). There are several types of brachytherapy: ? Low-dose rate (LDR) therapy. This may involve temporary implants or permanent radioactive seed or pellet implants. The radiation does not travel far from the prostate, which means that healthy, noncancerous tissues around the prostate receive only a small dose of radiation. This helps to protect those tissues from injury. This type of treatment may be followed by a course of external beam radiation. ? Temporary low-dose implants are left in the prostate for 1?7 days. The implants are needles, applicators, or thin, plastic tubes (catheters) that contain radioactive material. You will need to stay in the hospital while the implant is in place. ? Permanent low-dose implants (seeds or pellets) are injected into the prostate, and they work for up to one year after they are inserted. They are left in place and are not removed. ? High-dose rate (HDR) therapy. This is given through needles, applicators, or catheters that contain radioactive material. The tubes are removed after treatment, and no radiation is left in the prostate. This type of treatment may be followed by a course of external beam radiation. Tell a health care provider about: ? Any allergies you have. ? All medicines you are taking, including vitamins, herbs, eye drops, creams, and weiv-qxh-npflvit medicines. ? Any problems you or family members have had with anesthetic medicines. ? Any surgeries you have had. ? Any blood disorders you have. ? Any medical conditions you have. What are the risks? Generally, this is a safe procedure. However, problems may occur, including: ? Inflammation of the rectum. ? Problems getting or keeping an erection (erectile dysfunction). ? Trouble urinating. ? Diarrhea. ? Bleeding. ? Loss of bowel control. What happens before the procedure? Staying hydrated Follow instructions from your health care provider about hydration, which may include: ? Up to 2 hours before the procedure ? you may continue to drink clear liquids, such as water, clear fruit juice, black coffee, and plain tea. Eating and drinking Follow instructions from your health care provider about eating and drinking, which may include: ? 8 hours before the procedure ? stop eating heavy meals or foods such as meat, fried foods, or fatty foods. ? 6 hours before the procedure ? stop eating light meals or foods, such as toast or cereal. ? 6 hours before the procedure ? stop drinking milk or drinks that contain milk. ? 2 hours before the procedure ? stop drinking clear liquids. Medicines ? Ask your health care provider about: ? Changing or stopping your regular medicines. This is especially important if you are taking diabetes medicines or blood thinners. ? Taking medicines such as aspirin and ibuprofen. These medicines can thin your blood. Do not take these medicines before your procedure if your health care provider instructs you not to. ? You may be given antibiotic medicine to help prevent infection. General instructions ? Plan to have someone take you home from the hospital or clinic. ? If you will be going home right after the procedure, plan to have someone with you for 24 hours. ? You may have imaging tests done, including an ultrasound, CT scan, or MRI. ? You may have blood tests done. ? You may have a test to check the electrical signals in your heart (electrocardiogram). ? You may need to take medicine to clean out your bowel (bowel prep). What happens during the procedure? ? To lower your risk of infection: ? Your health care team will wash or sanitize their hands. ? Your skin will be washed with soap. ? Hair may be removed from the surgical area. ? An IV will be inserted into one of your veins. ? You will be given one or more of the following: ? A medicine to help you relax (sedative). ? A medicine to numb the area (local anesthetic). ? A medicine to make you fall asleep (general anesthetic). ? You may have a thin, plastic tube (catheter) inserted to drain your bladder. ? If you are receiving brachytherapy with implants: ? A needle, applicator, or catheter will be inserted into the prostate. It will be inserted through a body cavity, such as the rectum, or through the tissue between the testicles and the anus (perineum). ? An X-ray, ultrasound, MRI, or CT scan will be used to guide the catheter or applicator toward the prostate. ? Radioactive seeds, wires, or ribbons will be fed through the catheter or applicator. ? If the high-dose method is used: ? The radioactive wires or ribbons will be left in for a few minutes and then removed. ? Once the treatment is finished, the catheter or applicator will be removed. ? If the low-dose method is used, the implant will stay in place for 1?7 days. ? You w (more content not included)... [facility] Provider Letteron 08-04-2022 Provider Letter August 04, 2022 EUNICE MARTE [address] [place] [address] EUNICE MARTE 1955 To Whom It May Concern, Please excuse above patient from work. Date of Illness: From: 08/04/2022 To: 08/04/2022 May Return to Work On: Restrictions: _ Comments: Sincerely, [facility] [address] [place] [address] [facility] Urology Office/Clinic Noteon 08-04-2022 Urology Office/Clinic Note Chief Complaint Review Prostate Pathology HPI Staff Pt is here today S/P MRI fusion Transperineal Prostate Bx done 07/06/22 due to elevated PSA. Pathology report is ready for review. Myrbetriq 50mg QD therapy (pt thinks he is still taking) Tamsulosin 0.4mg QD therapy. Pt denies any pain/burning/blood in urine following procedure. IPSS 3 THANH 3 History of Present Illness Reviewed pathology I have reviewed and verified the staff HPI to be accurate for this encounter. I have reviewed the previous health record information and history for this patient from Dr. Palomo There have been no associated fever, chills, flank pain, or blood in the urine. Denies any urinary infections since last encounter. Review of Systems PHQ Score Initial Depression Screen Score: 0 ROS - Provider Constitutional: denies weight loss, denies hot flashes. Eyes: denies eye problems. Gastrointestinal: denies nausea, denies vomiting. Cardiovascular: denies chest pain or angina. Integumentary: no dryness Musculoskeletal: denies musculoskeletal symptoms. ENMT: denies otolaryngeal symptoms. Respiratory: no shortness of breath. Heme/Lymph: denies easy bleeding tendency, denies easy bruising tendency. Psychiatric: no confusion, no anxiety. Genitourinary: see HPI Physical Exam Vitals & Measurements HR: 78(Peripheral) RR: 16 BP: 140/90 HT: 72 in HT: 183 cm WT: 110.3 kg WT: 242.66 lb BMI: 32.94 General Appearance: alert, no distress, well nourished, well developed male. Genitourinary: Flank Pain: none. Bladder: nonpalpable. Assessment/Plan Mother in 50s, father in 90s. No prior abd surgeries. Hx L5 fusion, knee and shoulder. Ambulates with cane 1. Prostate cancer (C61: Malignant neoplasm of prostate) 66 yo AA Male with newly diagnosed unfavorable intermediate risk cT1c prostate cancer Grade group 2 in 3/21 cores, iPSA 11.09, PSAD 0.23. (2 IRF) PSA 01/26/2022 - 11.09 10/03/2021 - 6.8 and 5.7% free 04/06/21 - 7.2, 5.3% free Prior TRUS/Bx by DLS 08/2020 was negative MRI prostate 05/26/22 - PIRADS 4 lesion in the peripheral zone mid gland measuring approximately 8x8mm, abnormal enhancement is noted as well. T1/T2 hypointense lesion is seen involving the right ischial tuberosity. Prostate vol 48mL s/p MRI fusion Transperineal Prostate Bx 07/06/22 - pathology: prostate adenocarcinoma Grade group 2 in +3/21 cores , 81% involved (including MARÍA ELENA LT peripheral zone mid, same region as + core on standard bx). No cribiform I explained the NCCN criteria for risk stratification of prostate cancer. I educated him on the national comprehensive cancer network guidelines on the treatment of prostate cancer which indicates his options include: active surveillance (if life expectancy < 10yr), surgery, and radiation therapy. I discussed the advantages of each of his options at length. I discussed radical prostatectomy including robot-assisted laparoscopic with pelvic lymph node dissection. I showed him the [facility] calculator which estimate his risk of organ confined disease to be 64%, extraprostatic extension 33%, seminal vesical invasion 2%, and lymph node metastasis 3%. He understood the risks of the procedure include but are not be limited to bleeding, need for transfusion, pain, infection, injury to the bladder, ureter, urethra, urinary sphincter, surrounding tissues, injury to the bowels including the rectum, small intestines, permanent erectile dysfunction, incontinence, urinary leakage, bladder neck contracture or anastomotic stricture, bowel obstruction or fistula, hernia formation, deep venous thrombosis, pulmonary embolism, positive surgical margin, need for further treatments, urinary fistula, open conversion, lymphocele and need for further surgeries. We discussed different forms of radiation for prostate cancer including external beam radiation therapy. -Obtain PSMA PET scan to complete staging -Referral to Dr. Hassan for Rad Onc options -Send bx for Decipher testing -Follow up in 1 month to review and determine treatment plan 2. BPH with urinary obstruction (N40.1: Benign prostatic hyperplasia with lower urinary tract symptoms) Will continue Myrbetriq 50mg qd. No urinary complaints at this time. He is aware that radiation for prostate cancer can cause urinary complaints if he decides to move forward with radiation. All questions and concerns were discussed. Pt acknowledge and understands. Pt will call our office with any changes in urinary symptoms. 3. Erectile dysfunction (N52.9: Male erectile dysfunction, unspecified) THANH(3) previous (1) never tried oral therapy for ED, not interested in therapy at this time. May consider in the future Discussed effects of tx on ED Orders: [facility] External Ambulatory Referral Follow-up With When Contact Information Dewey COTTO, Milvia Lucia URL, URO Within 1 month Additional Instructions: Discuss PSMA PET scan & treatment options Patient Education Brachytherapy for Prostate Cancer IGood (more content not included)... [facility] Comment on above: Result Comment: Elec tronically Signed By: Dewey COTTO, Milvia Polo.br\Date and Time Signed: 08/04/22 10:53 EST Reminderson 08-03-2022 Reminders - From: Lulu Peralta LPN To: N - Clinical; Sent: 08/03/2022 14:08:01 EST Show up: 06/20/2032 07:00:00 EDT Subject: colonoscopy recall Due Date/Time: 07/21/2032 07:00:00 EST Reminder/Recall Patient is due for screening colonoscopy 07/21/2032. [facility] Auth for Release of Medical Recordson 07-29-2022 Auth for Release of Medical Records [id number]#1 .00CD:127 [facility] Pathology Noteon 07-26-2022 Pathology Note [id number]#1 .00CD:127 [facility] Outside Colonoscopyon 2021 Outside Colonoscopy [id number]#1 .00CD:127 [facility] Lab Reportson 07-19-2022 Lab Reports [id number]#1 .00CD:127 [facility] ([facility]on 06-23 SARS-CoV-2 (COVID-19) RNA NISHANT+probe Ql (Unsp spec) Not detected Normal NOT DETECTED [facility] Comment on above: Result Comment: When diagnostic testing is negative, the possibility of a false negative should be considered in the context of a patient's recent exposures and the presence of clinical signs and symptoms consistent with SARS-CoV-2. This test is not yet approved or cleared by the [place] FDA. When there are no FDA-approved or cleared tests available, and other criteria are met, FDA can make tests available under an emergency access mechanism called an Emergency Use Authorization (EUA). The EUA for this test is supported by the [employer] of Health and Human Service's declaration that circumstances exist to justify the emergency use of in vitro diagnostics for the detection and/or diagnosis of the virus that causes COVID-19. This EUA will remain in effect for the duration of the COVID-19 declaration justifying emergency of IVDs, unless it is terminated or revoked by the FDA (after which the test may no longer be used). Performed By: #### P TT, PT #### [facility] [address] [place] [address] Dr. Marcell Luque IntraOperative Documentson 1 09-11-2021 IntraOperative Documents [id number]# 1.00CD:127 [facility] Coding Summary.on 07-09-2022 Coding Summary. CD:[id number] G h0bWw+PGhlYWQ+LT9YGMQ uH10bcVIvvH8IL9xCAB8T OWJBWOWZPX8VOM6oaNY4N MayH3LzwrSo HwwelNSfCI51WTo7ZGD1s TqpELlnyQ6byUWjH3o2Bx HuFV62bR45TVcvRYTqVyI 3LjZpbjsgbWFy Q0xdRfQgeJJoUwi+PHRhY mxlIHdpZHRoPScxMDAlJy AldGoiKL5oIe7zAUQqALB vbGxhcHNlOiBj b3deUXFlKSmaFH2nmGdbU 0QcfGL9GXEav3u7Rr29kU I+YCMcGAG0lDsmCPkiz06 1RwOsw0moGKY0 aVTiQJftVHJ1I53lb3P0R CDiWZVvMKC8xBG4zF4xiO ztcvxxD1YppEJjEkL5PUZ 6cDPgzB7mkJlt ywzmoH6jAxw+L04SIO8EH RJGHN7DXvw9R3ZrVhteeD I+JH44ABIrXP42aUTqfFU bd0idbRr6PbMl MJQfIZR5tZpsDFvhu3OyO ECwY47siGWgg4R2XUGafL crhAKsFlKwlTC4sI8jJVt vuqtob1kzkaff Vghhm2rsar13tT02E21uG XtiZLBmUMJ7ROXcHIQppP iplk0yrA8jVo7+TLnvj8c fg1pldZb0SlGs YZXdlkVqrMucPDJ1e6ExX d39W8UmdSlcj3VgDpj6pc 90uZTvm5A8nBR7DUcfZIB oiU3lGBfbLoR5 QLToOzFpbV33fZTcFRzgP u3uoIinaWznWG3aMHQklt mnQWXrhR8zGAZnoPMzdCu bMQ7kMINtrtcg s283LcVaRSV9OBUzoCYkI 6JbeT3cPrJbCOJgQZLvW3 EryWAlSNnjV567LAetWmX 9CXRlpdBhM8Py IMWyuRprUcJ4r8K8Ss2Am 0VhelwgRDW8ADntHOXjWl P1IxSgLdL5Y8HeDrp4JOP opFbmGA3jV6Fe UUQwtlgtpfrcbND6EBFqY SPhcD89cAFuKCcxWu2lg7 I9j356RFWeWUVpsK58Yu2 udDogMTBwdCBU vG9kizrwk5fmkzhdZwVhO ELvPOb0QZl7IJYfzYxtWu JbZJS6NrW3VKP5bRWkuY0 jqQetszecuW0m Oyc+Y53ibD6wUIA8KLS2o bhmOEPqelNeLT41JM85T5 RyPjwvdGFibGU+PGRpdiB biEslVC2xDlYd u7whw3NdVYnpX3WgFXVnO ZsaGel9IZUoGUL2kSZ6pM 4kNKCyCGuky7U6mXA7Q6L watEqsg4uw5jg HXCoJVcuU85gxITeo6H5Q HUfiQT6BDExkKwgMtXhsE 93Oyc+GYHzsYaxw6XoGoo ve7dsk9ntaAu4 QvGaTPHdqjKhiHdpTLA6z 2HbNs79D63oKEhuDMNdBG ZxFYGqZROboNojlo1pfN4 wIi8+PGNvbCB3 hKM7rP5lUSYyZpL4QLinH 842IvVizRVgXnuev0udp9 tqtNz7RfWwZPFtidDehMu zPJN2g3BfQd76 E76aATcuPONhVFVlCRWnP BTlkNzypf1eoW9iSy0+PC 9zg4zbxe56zB64kYN+PHR qVME3sUaaMYdz VOPyjW4aZQgxHnT6QKEgM iOyqA57sKHiFGupQu7ldT iiuWkwFD4rZPIzthtan36 0KtJdx9ibENEr cRNoSNmqUOS2L90qj6B1A GUeBCFiDQV4mSX0zJ7tbN lnbjogbGVmdDsgdmVydGl fAEdbMHzvQ108 IHRvcDsnPlBhdGllbnQgT pYlGMw7Q3FbSom5HCLjsG pxCN0kwVHkGQzkBm9ueUb pyIeiUK6yALLx rfytb639QhDsi5yvGEOsq CKlIZyyNQM1L81qv3W6WH YlKQZxHPL7kWV5rW3thRy nbjogbGVmdDsg hqAvaZqkHUnkVWncH212J HRvcDsnPkJpcnRoIERhdG H7NT53VP79uHIqo3Q8vQJ 6D1ZvFPItepdo lnvxsHS7FYWuPAHaoE85W w3pyVshNk3uJZCjIRH7GL UtfERlN9TloA0eYsJxPND vFAYkU9ZklYFz VAivV793PFviLjU1CNUjm rMeH2IpBIQsuEorEzH8k4 G6Ih8QO5V3TO02ED32nCT ua7E1oTI9I3Ql JQFazqqrotrqaAV7NSJsK CXzeB40Ov4woCskZn3jBP PgVNK5NZVjrBSuJ2UrlK9 yOiAjMDAwMDAw L9RjtKCsCOvnX949IYrrA fH4FLUtokHgG1AgXWNzkH iwQuA8z1F1Ds2PLJb2TS6 4DY02oGAnq2G4 oOM4H7OgQBQnuhuoxbkjk NV6HXDdXILjxJ97Zw8ojF yeLt1sPLIqGUH7GTAtpLH uW9EwlF6uDeMv JLNmTTBtK5DelMMdSFczA 750COhcGjT0FUHtavAmY0 GgXAZpqUckJqA8p2H1Zq7 GPEFmLA77KVY3 kUR1HU14VK09K7TzHdhaa GFibGU+PHRhYmxlIHdpZH RoPScxMDAlJyBzdHlsZT0 vBw6zMYYfKKCx yIgkiCYpFtRnj8dsVWPoD HsaSS3zlHcjM6AcoCY2JP Rvg7m4Js68T06wE2HayCB +GSJweHT2sXQ3 fC9vFxNdHiO3DMltS401S rYjvJDfAfozd8mfp4mfjO s9HzH3RIUnwnJtaMpdCER 9t6JhTb32L57f IHdpZHRoPSIxNSUiIHZhb Bbdeb1exX4gRj0+PGNvbC M6cTP1sH3eImDiQaI9JWv oD015AtFsnZFg Jhfiq0eur5gjxRd4ZzXnS WAngxLahOzzLFC8e5CkAt 52Z0JurOnvk6YbGbi1pi8 3yPYsk0I2uJL4 R4VgUJYiumwiiVVmvKjrA Q7aUVHhgkxoKNVtdG0yCN WnT4c6TaMsNaF6CDnaX3V hhuJ3PBYriAJr AWekFXJ7T48wx0O1YRZiM BJuXET3iPF5sY0woIxrux ogbGVmdDsgdmVydGljYWw tPBchI775BNGp wEpkKWVsdT9wDJJeiACkh XpdNN8tMCQglrobFpaSAN RFTEJVUkcsIEpBTUVTIFI 5A2UjCxg0VTIt dGcmRZ1lyFExASvzXp2jv TdkiMkfDQ3mVAGvianhWG SpqM2cJBLfgLGwzYhjNH6 mOCCsczelf700 AdGfCOM7BSUtxSDhX2Saa Z2mNsIjDVKeOSIrZ0IczP LgDAsrB597ECzyCxS1PLS efcBnX2KxSNVv zPkrAnS8z5O9Jj7pBg4sS D5yKQJ1RW05DK67iBNkc5 C7sBR5O3ThFEVruleusai yoAP5YSRhMXXu aS56nLZmQAybCv7js2C2x 279PYAhGHHedR72Fp9ghV joCWZpzCVNbK4bzxfai4h vcjogIzAwMDAw BMy9UOm5TIQrqDgrIdYdF ZE6PdC8VUB5hUPmeY9hlZ ollcbbxF6mYle+NjYgWWV usbJ0O3BeXnn2 EKLrrWowOV1vnXVxQEzmF k6kbWdaxZxcNA0uVQHhsd vrKKObgH2iOFPnzHTviUk yBW1qUEJjpjks v601OuUlMXC1MQHrwQNoH 3GjsG0eQjJlJLTjAUVsC3 MdvFVvKDitN147OYgqLkI 8QHHpxrNiT6Ij IFFerDjbRxG9w3G3Rl0ZH ZymNG45ED12bLArf5A4nL Z5A7YrDEFrqlrtvjwuoLA 1XRIhSYQwsC66 oEPyRNbuPz8qu6L8d346N JNhSSDjzD40Ge9yfGxjXP FnsPLDsJ1zdcazv4taoyk gIzAwMDAwMDt0 PQb1AZTsjJziBeNyPSI0X jL8EDY0bOPxvD7yrVziew uwiC9kEqv+AV9fhUqhuE3 woP5WPR0mEYHt aSKWyBKfWGE2QJ81YJ30R 3RyPjwvdGFibGU+PHRhYm xlIHdpZHRoPScxMDAlJyB ppMsdOG7vEg4y ZGVyLWNvbGxhcHNlOiBjb 0nnIGIcCEaeEB0tdBhhK3 YptGM4GKEfb5r4Tk15V53 lB0CeqXQ+PGNv qTO0vFD5eD7oDwGvCfB6Z ErvP003LaOnaUBdGgelo6 oyn6gedSn6NuAhLVIlwlR vmZhwZTU3t5Dw Bp15X85hTNyrDWLnJUHuV DMvKHXkiPqcou0vjY7uSt 8+XEAzbGB9cDK8rR0kFsT xSyY2HFdxH741 HhTacQDsZzywF63zA2Rsc XA+UVKbFbg9OKPlgTpkXC 2yaFSfQVwfQw1uZDW6MvJ mBqDyMMhbF2Iz FUWzhdswghnueIF5WLVhE ZKbnO59Ta8crGqdJl7qXX VvJBC9MLSbeCImO6HqqO7 yOiAjMDAwMDAw Q7XrcOXoHQaiR621AHevU nR9ORZoknLiA9ZkHTOupR fsDgY0f5Y4Rl1OqHwqcMR zGU1aTvElQNb3 Y8QoEso9KVLqaFcoGE4dv ZWmBCtoQq0gbFxilXneAR 7xGGZpbvmvk051GePlo4n kIDEwcHQgVGlt GYB6T65tg0C5YLZxDNNwN UB4qSZ5iM9sxSazuwjaaJ VmdDsgdmVydGljYWwtYWx vX600BTOjhEbi HcZXPoq5K9PyDyr5GVFrt LumIF4zfBAiRKotEc6ztN lbnYlrEC3fSDEuwwpms56 2TwImx5eqHRXz nRSoYWdlXAX2T30pn5B5P IOpJYZfKOY9lUO1aA4xvZ lnbjogbGVmdDsgdmVydGl mSItvREyyU094 EMThmXtzMq5APkc2U8ZrU ua2JYHhgBamBO0cdSWsTG afOu5giCpmpMkgMB4mGQX yosyuu172FyZa n1qzTJLaqIDgLDtqAKX1O 73yp3B6WFZkQSLwPEX7aK U1dS6plNiavpwtxXQlrPp gdmVydGljYWwt YDulN385TPKjkNjzIcIau WVyOjwvdGQ+YG02ic86K2 GpXylrMbx7IDXnQAZ3yZB 5vH3gMINbSZwj c3R5 (more content not included)... [facility] Main OR Intraoperative Recor don 07-09-2022 Main OR Intraoperative Record IntraOp Document Type FT Summary Primary Physician: Milvia Palomo MD Finalized Date/Time: 07/09/22 13:38:52 Pt. Name: LYDIA EUNICE Delvalle/Sex: 1955 Male Med Rec #: [id number] Physician: Milvia Palomo MD Financial #: [id number] Pt. Type: A Room/Bed: AS112/20 Admit/Disch: 07/06/22 10:08:27 - 07/06/22 17:20:00 Institution: Case Times FT Entry 1 Patient Times In Room 07/06/22 14:55:00 Out Room 07/06/22 15:47:00 Procedure Times Start 07/06/22 15:09:00 Stop 07/06/22 15:41:00 Anesthesia Times Start 07/06/22 14:55:00 Stop 07/06/22 15:47:00 Last Modified By: June Pandey RN 07/06/22 15:47:46 General Comments: 07/09/22 Chart opened to review and send charges LRoth CSFA Case Attendance FT Entry 1 Entry 2 Entry 3 Case Attendee Adams Blanco DO, Scout Palomo MD, Milvia Correa CST, Mahsa Johnson Role Performed Anesthesiologist of Surgeon - Primary Scrub - Primary Record Time In 07/06/22 14:55:00 07/06/22 14:55:00 07/06/22 14:55:00 Time Out 07/06/22 15:47:00 07/06/22 15:47:00 07/06/22 15:47:00 Procedure PROSTATE TRANSPERINEAL PROSTATE TRANSPERINEAL PROSTATE TRANSPERINEAL BIOPSY WITH ULTRA(.) BIOPSY WITH ULTRA(.) BIOPSY WITH ULTRA(.) Comments Last Modified By: Katherin RNJune RN, June Parsons RN 07/06/22 15:47:47 07/06/22 15:47:47 07/06/22 15:47:47 Entry 4 Entry 5 Case Attendee Erik Lynn RN, Kimberly Y Role Performed Cardio Tech - Primary Cardio Tech - Primary Time In 07/06/22 14:55:00 07/06/22 14:55:00 Time Out 07/06/22 15:17:00 07/06/22 15:47:00 Procedure PROSTATE TRANSPERINEAL PROSTATE TRANSPERINEAL BIOPSY WITH ULTRA(.) BIOPSY WITH ULTRA(.) Comments ORIENTING PRECEPTING Last Modified By: June Pandey RN, RN, Kimberly Y 07/06/22 15:47:47 07/06/22 15:47:47 General Comments: PADMINI WILSON - FORTEC REP. Quinton RUIZ - PERINEOLOGIC REP. JOSEPH, hand candy cutter Protocols FT Pre-Care Text: Implements protective measures prior to operative or invasive procedure, confirms identity before the operative or invasive procedure, verifies operative procedure, surgical site, and laterality Entry 1 Procedure(s) PROSTATE TRANSPERINEAL Patient Identity Birthday, ID Band BIOPSY WITH ULTRA(.) Verified (select at Check, Patient least 2): Participation Consents / H and P Anesthesia Consent, Operative Site N/A Verified HandP, Surgery/Procedure Marking Verified Consent Surgical Site Yes Laterality Verified Yes Verified Procedure Verified Yes Correct Patient Yes Position Verified Availability Equipment, Medication Prep Dry n/a Verified (If Applicable) PreOp Antibiotic Yes Time Out Scout Lamas Jr., DO, Lue MD, Milvia Lucia, Mahsa Correa CST, Sweene, Terry T, June Pandey RN Time Out Complete 07/06/22 15:08:00 Outcomes Met? Yes Last Modified By: Erik Lynn 07/06/22 15:12:15 Post-Care Text: The patient is free from signs and symptoms of injury caused by extraneous objects Allergy Information FT Pre-Care Text: Verifies allergies Entry 1 Allergies Reviewed? Yes Allergies Reviewed Self/Patient With Outcomes Met? Yes Last Modified By: Erik Lynn 07/06/22 14:57:54 Post-Care Text: The patient received appropriate medication(s) safely administered during the perioperative period Surgical Procedures FT Entry 1 Procedure Description Procedure PROSTATE TRANSPERINEAL Modifiers . BIOPSY WITH ULTRASOUND Surgeon Description MRI TRANSPERINEAL PROSTATE BIOPSY Primary Procedure Yes Primary Surgeon Dewey COTTO, Milvia Lucia Start 07/06/22 15:09:00 Stop 07/06/22 15:41:00 Anesthesia Type General Surgical Service Urology Wound Class 2 - Clean-Contaminated Last Modified By: June Pandey RN 07/06/22 15:41:22 General Case Data FT Pre-Care Text: Classifies surgical wound, implements aseptic technique, initiates traffic control Entry 1 Case Information OR OR 5 FT Case Level Level 2 Wound Class 2 - Clean-Contaminated Specialty Urology ASA Class 3 Preop Diagnosis ELEVATED PSA Postop Same As Preop Yes Postop Diagnosis ELEVATED PSA Outcomes Met? Yes Last Modified By: Kristy Dent CST 07/09/22 13:38:47 Post-Care Text: The patient is free from signs and symptoms of infection Skin Assessment (Pre Procedure) FT Pre-Care Text: Implements protective measures to prevent skin/ tissue injury due to thermal or mechanical sources Evaluates for signs and symptoms of physical injury to skin and tissue Entry 1 Skin Integrity Intact, [place], Warm, and Skin Abnormality No Dry Outcomes Met? Yes Last Modified By: Erik Lynn 07/06/22 15:10:56 Post-Care Text: The patient is free from signs and symptoms of injury caused by extraneous objects Patient Positioning FT Pre-Care Text: Identifies physical alterations that require additional precautions for procedure-specific positioning, verifies presence of pr (more content not included)... [facility] Postoperative Documentson Postoperative Documents [id number]#1 .00CD:127 [facility] Coding Summary.on 07-07-2022 Coding Summary. CD:[id number] G h0bWw+PGhlYWQ+AE5OPQJ dV93wnHRpjA1ZD2lUMP2L ZLNHYPDQSN0KAO0wgRD1T EliP7QtxdDi DycgxZXeMT26IVz9VIE1i DmkAFdwaX6zpPKeA8p0Gi QhAZ42xW17PAmzXLBqPzY 3LjZpbjsgbWFy J1wtJrTqjIRxIsu+PHRhY mxlIHdpZHRoPScxMDAlJy PdnTajJF4rAg2tWSPfFLG vbGxhcHNlOiBj x0vfMAYuKQktLK6gcObnY 9JjeOV4GWFfy5g5Ee40fY I+RHVtBDW5rNyzPLbjy66 6DeOrn9rzMYJ3 gHPiQQvzPCI8B34yy4L9N DIrVAQdBQL8cVV4xY7utL chbdclL7NijQFiKaE8TLF 5lFNcqK4rmGxq twbaoH4mDst+D93QKF5CT FKUYE5MScd6G3KvFjmrnJ I+IR39COIgSA84nHDbtTR pj1jxuWj2YoQl KJGeXWN8cXezEBiut9QeI KPoZ61zeZEpi4P8FBKgrN vhjRWdIbFsgGR1zQ0oTWv klozid3qkfbty Mqxgv5aepm09kA14U23tP DcmUYTeDUD5MQThXIEohL beny0psZ8rUh7+TDxlq4u ld9fubDo0GaYy VQVbiqVklHfqDRS7k3PaX i03S4IbcRkqn7OgYeu3be 67rTJvg4R4xYX8LUxbVQE mdL3bFQyfNwT5 EKRpPnRrnN88uGQpPGusZ r3rgQksaAtiVO5sDMYjze dxAQIemN0zXJKfaDOfgRd nEH1aFFLazsai o882DvLeVPL3VWQsuTCuK 6WjwK8uLqSkYHRiKAGnG0 ZuxQRcHUnhI418PQbdAhE 3MEYiqhYeN7Vz YNFndInmTxB3f0T5Yt0Zi 8AvgqmbGFA2VEqfRYJkXu A3IiXxTqY4E8FeRqn6XXY ndMmlIO2pL5Pw LHMdrnseufcqyJQ7NJKsN QDobQ20rIZiNQlpNy0nz1 J1t336VRYuVCEncZ08Hc0 udDogMTBwdCBU eR1wwzyab6bjrqzlRdRpV AXiRUq1JFz0MQHlpAlkSv YkVAS6ZxG3IKX5jVImnO6 elSzpzdzvsG5y Oyc+Y38mzJ3hCLK6JUB2g tdtLGTybrJmUX19NW40Q8 RyPjwvdGFibGU+PGRpdiB iuQzwRW0xNwAq a3rta1DcONzmQ8YsNPPpV EpuVat5YRUiMYV7eMX9yN 8bFUKcCYvdv8Y0qYE6J2Z bdoSbvz1nh3tf FCLfHIxeJ78goQQlz1D4R IBhwQF4KSAjhLceOjGjcN 93Oyc+FHAzdDajw4JkLyl lp3cdo6dvvLq5 RtHjYNXjisMraPyrZAX4p 9LvJr62O42rRQltISFuUE FiXCMqZBGttIcguf9psE3 wIi8+PGNvbCB3 wUB8cH3cSFEjZyL7HQhvZ 130CdMcqHOyGrvee1nvf2 zxxPa4TlHsETWyqfEziAz yZCH6k7UrPq43 T93wHJdfTQOfVLZePYNlD HIjzXacuo3yaS3rYn2+PC 9pi7epzp48aJ59iRG+PHR zJLP4iCxbTSkr VFMdkR1rITctUpD7LWYaG oTfpQ07hJGxIHmjJz4rxQ tlfPgrPR2bKBVcismfg39 9QhFld4zmBVMm uTAyPCuaTTS7K16wg8W4L KQnDLLaCDR9nQQ4bO9qsF lnbjogbGVmdDsgdmVydGl iMXyhSMmgJ089 IHRvcDsnPlBhdGllbnQgT cUlUFb2I7ZyTcc6AFVafQ ycMU7nvFTzXVshNy8ebYb nqYitZE5lBFXx hpchb155SfHab4oaGRVym QRxRKxbJHE3Y81yb6I3FD WcDAUeETU7cGT6yG0yqVd nbjogbGVmdDsg laFfeYhcMNvpJNphO848W HRvcDsnPkJpcnRoIERhdG J1CB98LU36qEJcd0L3xJQ 9H5ElYUBxwqkl ogwvdDM3DQVhHYBzgE69Q y1xbDtmOj6zGHHzTWV0PG MceOInM7RvbM0wXjCrBDX tQPUeL7SlmGNf KInwR395LGzvTjJ7PMQpc dMgH8GmDMAweHbrAmI0z6 U0Fs6TH7V5AM44OZ70oKS ov8Y8rDV3V6Cq WOEaoioyzmpxzUY1IKOkM XRxgA60Ki6yyVttVj3cWM JgFXV8CDIzgJFqW0PjoO4 yOiAjMDAwMDAw R3CdtXHsZUvwS315GKdxW uP5TWKdugCmF2KfIBGxcC gtHkV2p3W3Tw7XPIt2EM8 4PZ65eSOry2K7 kXN3Y9CsANLbjuhlhpppl CP1LWEtFTIflD81Sj3zqR bvDs9kCKUsIIQ2BYLvjOH tX5CvgR1bEmIb PQDrHZGmD9YsxWLqZSoiH 130OOzjYyZ2KRFzvqWkY7 HxNOOycVhqIfJ0p3I8Tq4 DSQEkGV20ANF4 iOV2IF06DL28C9ZnLdrsm GFibGU+PHRhYmxlIHdpZH RoPScxMDAlJyBzdHlsZT0 cNz2hILVyIRLt sMdpnGYrQeWaj4zsPOHaZ DunVA3mmGjtZ3VisEP1KK Kva3v6Kb21Y74pM1IgoPY +IVWslCX9sOH6 yW6tJoUpErY0MLllE756Y gFuzRBvNtzoa6gui0hjlN e5AsE5PJRuzvLbkQbkBNZ 1u9TeVj31G87i IHdpZHRoPSIxNSUiIHZhb Ymntc0qrL9xZz6+PGNvbC D5eFX5bH0tUbAeYuT7RAr yG995DmHrqEGu Jdnql0wfv4gkcXr4RdKrH ONxxoQweLbfLPP4d0DgCp 67M5SynWdnr3WcFda5vh3 8cJQva0H8rPL9 Y8PmZUWcsmpxeNNxpKwlD H9oJFBfdyldEUJidR7uBG WkZ0v3GjOqHeJ4TExdQ5K vcpX5GJMuhQRo SDcmLWW9J90yv7F6GTZlV YBtDFO3gNR4eN2ysZvlpt ogbGVmdDsgdmVydGljYWw wHPveT276OCOi dXesJNOrvR8wOSHbsJQee MrtCM2tQMArzzqeGjbTWN RFTEJVUkcsIEpBTUVTIFI 3A7MmNwv5BRIz qQqlSV1bmKYxIUkuNo7bm BpawMmdXX7tBCVfdnvaZD JchQ8vAOKnqDXlcKixXS6 zTRYgnerce315 XzNnDEQ8XEEsnTCmL2Wsp B1yUoNaXGSvCSBsB6QppI UgTTflV414LKujLyS6XXE wflGwF3YqKXYg mOzyMpE6x4N0Pv1hTn9lV T7eSBL2YS43MI60bNVpu0 X9kEJ8D8KoIDJqjnuuzzm yxDJ5EPNbMLHc aZ93aJEsSRqsQx3sf3G6b 474SKIuSRKnrR93Cb2wbL ulBCEfzXJVpI3kztggy7c vcjogIzAwMDAw JRs8WVl9TQQfwWbiKfYdJ LK7KlE0MVX4pIIicT0wiT mpqbxpmT9nXbd+NjYgWWV ovqY1F5LbGeb8 AGCxkFwpIS0faOHuBKxgC g4rbOwyvTazRI7cIHEmoe icNYOsxG3zGFRllIIlsWj cMV2iRDKddmtp t464FpPqHSC9CJYwtPYlF 3JnlR3lMjOvMTLmITIjH6 TfjQScARigG494JLdvWsB 9UUShkdPhQ9Ud WTWbuDmeTxS7b2I5Yr8AL NifIH54NP59fCRnq9Q4fP V6K9OaOJUpxlrcexfiiMC 3SSQsPVXwkP82 eZSqBJjwGj5ts5X0t828J XGaPRSbyT27Rm1vfUhtOH VmjLQOvQ0xcwbgm8yfoon gIzAwMDAwMDt0 YLp0KRHnxRdeZpPnKQW7Q xS1GZB8mRXysJ4lvQojov wpkV1pLff+G0G7jRT9mIP udDwvdGQ+PC90 va64C5VyMrzdDjf5MSLmX OQ4iZS4iA5dHNZvYMyij6 N2uDR4B1FpkpQlzm1ac6i kAWKwUTuiX04y cOZbl8P2GNLnnKE4GCBzl AxrCiHrkM59Hao+PGNvbG git8GqGpyxh1lcg2cubLa 9IjMwJSIgdmFs jXhcCSU5s9QqPh47R53kN HdpZHRoPSIzMCUiIHZhbG xliv0jmP4iCw7+PGNvbCB 9iOT2tL1dSoXs ZjM9KEieW881HxFdrCFlL zjyl0elb4ctrFi3GvMiXC OnpuRswTuuFSQ1m7BtGq7 8X6IqwFzbd9Yc Eam0fi48cONbg7G7tEJ2B 3BhZGRpbmctbGVmdDogMC 9hSCZyjwcvYCZefG5uMHS bE3v4GfMjIqY6 WCzuZ4QcfbK4FEHkcKSsQ TWpoRUQyJ1ngeyna8bqbn snZmVrALHjFWl8FTr3KSO saWduOiBsZWZ0 KdJ3YDD3oLAisG8adHdku pnkfQ2lQns+WDs1m9tstK HmYC7hzYS6CN85OI60gZI ju9U8gWS0Z9Ax WLJytkmrrjsehPU8SAKlA KEqpM89Md3qdVjkUq4tWI SbHHW3MMZhrQLkV6BzaK3 yOiAjMDAwMDAw S9CarRHpIEciX773IGitS eQ4JGRzuqFaV1NiUABkoD cnOoR7k2F4Rg8TWL04OK9 4RN34yPMmy6X8 gEW3C4XyAMBggrdtbefnr IM5KWCdGDMhpP60Is7biG nqQu0zYSIbDOX6QYUhhLI pR4ZmqE9kAaTk HCCfOWNkL4NbmBLiSRkiK 193QQyuKxK1PILtrsLgS6 SjLKVskEdlHwW0v5X3Ft0 LCa38QE90FP40 kARdw7Z7bIK2C5QuHVYjh ihkxyzlwET3YAUfOZHwiL 80Rk3bbUenDy5eRUKxYAS 5DACilDGwF0Wm bB7dVgXgUVMjHNSiV3Zyz SFbPLgtG104BPknJfY7TU AwcvRmY2RvOFLawOupHvC 9m4M7Ou1WDZzc wzm7G9HpWwessPX+PC90Y HLqXV13iJWziNExw5cpvO o2UxTrBEEmXUR3mOrhTUs tg4TbWBCmR68c bGFw (more content not included)... [facility] Consent for Anesthesiaon Consent for Anesthesia [id number]# 1.00CD:127 [facility] Consent for Procedure/Surger yon 07-07-2022 Consent for Procedure/Surgery [id number]# 1.00CD:127 [facility] Discharge Instructionson Discharge Instructions [id number]# 1.00CD:127 [facility] IntraOperative Documentson 09-06-2021 IntraOperative Documents [id number]# 1.00CD:127 [facility] IntraOperative Documents [id number]# 1.00CD:127 [facility] Preoperative Documentson Preoperative Documents [id number]# 1.00CD:127 [facility] Preoperative Documents [id number]# 1.00CD:127 [facility] Prescriptions/Work Noteson 09-06-2021 Prescriptions/Work Notes [id number]# 1.00CD:127 Normal [facility] Capillary Glucose POCon 06-22 Glucose [Mass/Vol] 216 mg/dL High [facility] Comment on above: Result Comment: Jluis SANTANA Performed By: #### 2 [id number] ####[facility] [address] [place] [address] Glucose [Mass/Vol] 233 mg/dL High [facility] Comment on above: Result Comment: Jluis SANTANA Performed By: #### 2 [id number] ####[facility] [address] [place] [address] Glucose Cap <20 Abnormal [facility] Comment on above: Result Comment: Repe at Test Performed By: #### 2 [id number] ####[facility] [address] [place] [address] Consent for Treatmenton 06-22 Consent for Treatment [id number]#1 .00CD:127 Normal [facility] H&P Updateon 07-06-2022 H&P Update [id number]#1 .00CD:127 Normal [facility] Inpatient Patient Summaryon 07-06-2022 Inpatient Patient Summary [address] [address] [facility] Clinical Discharge Instructions PERSON INFORMATION Name: [facility] Admitting Physician: Milvia Palomo MD Attending Physician: Milvia Palomo MD PCP: ADILSON SALAZAR MD Discharge Diagnosis: Elevated PSA Comment: PATIENT EDUCATION INFORMATION Instructions: Post Op Patient Instructions - FT (CUSTOM); Post Op Patient Instructions - FT (Custom) (CUSTOM); EU - Transrectal Ultrasound of the Prostate with US guided biopsy Discharge Instructions (Custom) Medication Leaflets: Follow up: With: Address: When: Milvia Palomo [address] [place] [address] [phone] Business (1) [address] [facility] [facility] [address] [place] [address] [phone] Business (1) Comments: Office to followup appointment in 2 weeks for pathology review Type Location Start Finish [facility] URO Office Visit [facility] 07/21/2022 9:30 AM 07/21/2022 9:45 AM Confirmed URO Office Visit [facility] 10/12/2022 10:30 AM 10/12/2022 10:45 AM Confirmed MEDICATION LIST Medications to Continue with No Changes Other Medications albuterol-ipratropium (DuoNeb 2.5 mg-0.5 mg/3 mL Soln-Inh) 3 Milliliter Nebulized inhalation (aerosol) every 4 hours as needed Shortness of breath or wheezing. amlodipine (amLODIPine 10 mg Tab) 1 Tablets By Mouth every day. aspirin (aspirin 81 mg Oral EC Tab) 1 Tablets By Mouth every day. atorvastatin (atorvastatin 80 mg Tab) 1 Tablets By Mouth every day. budesonide (budesonide 0.5 mg/2 mL Inh Susp) 2 Milliliter Nebulized inhalation (aerosol) 2 times a day as needed Shortness of breath or wheezing. cholecalciferol (cholecalciferol 2000 intl units oral tablet (Vitamin D3)) 1 Tablets By Mouth every day. glipiZIDE (glipiZIDE 10 mg Tab) 1 Tablets By Mouth 2 times a day. hydrochlorothiazide-l isinopril (hydrochlorothiazide- lisinopril 12.5 mg-20 mg Tab) 1 Tablets By Mouth 2 times a day. insulin lispro-insulin lispro protamine (Humalog Mix 75/25 KwikPen) 35 Units Subcutaneous twice a day (before meals). metformin (metformin 500 mg ER Tab) 1 Tablets By Mouth 2 times a day. mirabegron (Myrbetriq 50 mg oral tablet, extended release) 1 Tablets By Mouth every day. Refills: 6. montelukast (montelukast 10 mg Tab) 1 Tablets By Mouth every day. pioglitazone (pioglitazone 30 mg Tab) 1 Tablets By Mouth every day. polycarbophil (FiberCon 625 mg Tab) 2 Tablets By Mouth every day. tamsulosin (tamsulosin 0.4 mg Cap) 1 Capsules By Mouth every day. triamcinolone topical (triamcinolone Top 0.5% Crm) 1 Application Topical 3 times a day as needed Other (see comment)., skin Comment: Normal [facility] - Chemistry and C hemistry - challengeOrdered By: Lab ROPUser on 07-06-2022 Glucose [Mass/Vol] 216 mg/dL High 55 - 99 mg/dL FT C POC Subsection Comment on above: Result Comment: Jluis luna RN/MD Glucose [Mass/Vol] 233 mg/dL High 55 - 99 mg/dL FT C POC Subsection Comment on above: Result Comment: Jluis luna RN/MD Glucose [Mass/Vol] mg/dL Invalid Interpretation Code 55 - 99 mg/dL [facility] POC Subsection Comment on above: Result Comment: Repe at Test Main OR PACU I Recordon 06-22 Main OR PACU I Record PACU Phase I Docum ent Type FT Summary Primary Physician: Milvia Palomo MD Finalized Date/Time: 07/06/22 16:28:27 Pt. Name: SHANIQUAEUNICE OSPINA/Sex: 1955 Male Med Rec #: [id number] Physician: Milvia Palomo MD Financial #: [id number] Pt. Type: Room/Bed: [place] [address] Admit/Disch: 07/06/22 10:08:27 - Institution: Case Times PACU I FT Pre-Care Text: Identifies barriers to communication and implements measures to provide psychological support Develops individualized plan of care, and ensures continuity of care Maintains patient's dignity and privacy, and maintains patient confidentiality Identifies and reports philosophical, cultural, and spiritual beliefs and values Identifies individual values and wishes concerning care Implements aseptic technique, and administers prescribed antibiotic therapy and immunizing agents as ordered Evaluates postoperative tissue perfusion Implements thermoregulation measures, and monitors body temperature Evaluates postoperative respiratory status Evaluates postoperative cardiac status Evaluates postoperative neurological status Assesses pain control, collaborated in initiating patient-controlled analgesia and implements alternative methods of pain control Verifies allergies, administers prescribed medications and solutions, evaluates response to medications Entry 1 In PACU I 07/06/22 15:48:00 Discharge from PACU 07/06/22 16:18:00 I Outcomes Met? Yes Last Modified By: Chen Ramos RN 07/06/22 16:28:19 Post-Care Text: The patient demonstrates knowledge of the expected response to the operative or invasive procedure The patient's care is consistent with the individualized perioperative plan of care The patient's right to privacy is maintained The patient's value system, lifestyle, ethnicity, and culture are considered, respected, and incorporated into the perioperative plan of care The patient participates in decisions affecting his or her perioperative plan of care The patient is free from signs and symptoms of infection The patient has wound/tissue perfusion consistent with or improved from baseline levels established preoperatively The patient is at or returning to normothermia at the conclusion of the immediate postoperative period The patient's respiratory function is consistent with or improved from baseline levels established preoperatively The patient's cardiovascular status is consistent with or improved from baseline levels established preoperatively The patient's cardiovascular status is consistent with or improved from baseline levels established preoperatively The patient demonstrates and/or reports adequate pain control throughout the perioperative period The patient received appropriate medication(s), safely administered during the perioperative period Acuity Level PACU I FT Entry 1 Start Time 07/06/22 15:48:00 Stop Time 07/06/22 16:18:00 Acuity Level Acuity Level I Last Modified By: Chen Ramos RN 07/06/22 16:28:26 Finalized By: Chen Ramos RN Document Signatures Signed By: Chen Ramos RN 07/06/22 16:28 Normal [facility] Main OR PACU II Recordon Main OR PACU II Record PACU Phase II Document Type FT Summary Primary Physician: Milvia Palomo MD Finalized Date/Time: 07/06/22 17:20:35 Pt. Name: EUNICE MARTE/Sex: 1955 Male Med Rec #: [id number] Physician: Milvia Palomo MD Financial #: [id number] Pt. Type: A Room/Bed: [place] [address] Admit/Disch: 07/06/22 10:08:27 - Institution: Case Times PACU II FT Pre-Care Text: Identifies barriers to communication and implements measures to provide psychological support and determines knowledge level Develops individualized plan of care, and ensures continuity of care Maintains patient's dignity and privacy, and maintains patient confidentiality Identifies and reports philosophical, cultural, and spiritual beliefs and values Identifies individual values and wishes concerning care administers prescribed antibiotic therapy and immunizing agents as ordered, Evaluates postoperative tissue perfusion Implements thermoregulation measures, and monitors body temperature Evaluates postoperative respiratory status Evaluates postoperative cardiac status Evaluates postoperative neurological status Assesses pain control, collaborated in initiating patient-controlled analgesia and implements alternative methods of pain control Verifies allergies, administers prescribed medications and solutions, evaluates response to medications Entry 1 In PACU II 07/06/22 16:20:00 Discharge from PACU 07/06/22 17:20:00 II Outcomes Met? Yes Last Modified By: Yissel Arellano RN 07/06/22 17:20:34 Post-Care Text: The patient demonstrates knowledge of the expected response to the operative or invasive procedure The patient's care is consistent with the individualized perioperative plan of care The patient's right to privacy is maintained The patient's value system, lifestyle, ethnicity, and culture are considered, respected, and incorporated into the perioperative plan of care The patient participates in decisions affecting his or her perioperative plan of care. The patient is free from signs and symptoms of infection The patient has wound/tissue perfusion consistent with or improved from baseline levels established preoperatively The patient is at or returning to normothermia at the conclusion of the immediate postoperative period The patient's respiratory function is consistent with or improved from baseline levels established preoperatively The patient's cardiovascular status is consistent with or improved from baseline levels established preoperatively The patient's neurological status is consistent with or improved from baseline levels established preoperatively The patient demonstrates and/or reports adequate pain control throughout the perioperative period The patient received appropriate medication(s), safely administered during the perioperative period Finalized By: Yissel Arellano RN Document Signatures Signed By: Yissel Arellano RN 07/06/22 17:20 [facility] Main OR Preoperative Recordo n 07-06-2022 Main OR Preoperative Record PreOp Document Type FT Summary Primary Physician: Milvia Palomo MD Finalized Date/Time: 07/06/22 15:10:00 Pt. Name: EUNICE MARTE/Sex: 1955 Male Med Rec #: [id number] Physician: Milvia Palomo MD Financial #: [id number] Pt. Type: A Room/Bed: [place] [address] Admit/Disch: 07/06/22 10:08:27 - Institution: Case Times PreOp FT Pre-Care Text: Verifies consent for planned procedure, identifies individual values and wishes concerning care, includes family members in perioperative teaching Entry 1 Patient Times. In Pre Surgery 07/06/22 10:15:00 Out Pre Surgery 07/06/22 14:53:00 Outcomes Met? Yes Last Modified By: Erik Lynn 07/06/22 15:09:55 Post-Care Text: The patient participates in decisions affecting his or her perioperative plan of care Finalized By: Erik Lynn Document Signatures Signed By: Erik Lynn 07/06/22 15:10 Normal [facility] Monitor Recordon 07-06-2022 Monitor Record [id number] 1 [id number]# 1.00CD:127 Normal [facility] No Panel InformationOrdered By: Balaji Collier on 07-06-2022 POC Device SN [id number] Invalid Interpretation Code [facility] POC Subsection POC User ID [id number] Invalid Interpretation Code [facility] POC Subsection POC Username SD TANNER Invalid Interpretation Code [facility] POC Subsection POC Device SN [id number] Invalid Interpretation Code [facility] POC Subsection POC User ID [id number] Invalid Interpretation Code [facility] POC Subsection POC Username SD TANNER Invalid Interpretation Code [facility] POC Subsection POC Device SN [id number] Invalid Interpretation Code [facility] POC Subsection POC User ID [id number] Invalid Interpretation Code [facility] POC Subsection POC Username SD TANNER Invalid Interpretation Code [facility] POC Subsection Operative Reporton 2 Operative Report Patient: EUNICE MARTE Age: 66 years Sex: Male : 1955 Associated Diagnoses: None Author: Milvia Palomo MD Procedure Procedure Date: 07/06/2022. Confirmed: patient, procedure, side, safety procedures followed. Performed by: Milvia Palomo MD. Type of procedure: 1. Transrectal ultrasound of the prostate and seminal vesicles for needle biopsy 2. Nerve Block of Prostate 3. UroNav MRI fusion prostate biopsy, transperineal approach . Physical Exam: no relative contraindications found, vital signs Vital Signs 07/06/2022 10:39 EST Temperature Oral 37.1 DegC Heart Rate Monitored 92 bpm Respiratory Rate 20 br/min Systolic Blood Pressure 157 mmHg HI Diastolic Blood Pressure 91 mmHg HI Blood Pressure Location Right arm Mean Arterial Pressure, Monitered 113 mmHg SpO2 98 % . Informed consent: signed by patient. Indication: 66 year old male with a history of elevated PSA 11.09 on 01/26/22 and MRI prostate on 05/26/22 showing a PIRADS 4 lesion in the left peripheral zone mid gland. Prostate volume 48 mL. Prior TRUS biopsy by Dr. Tanner in 08/2020 was negative. He presents today for the above procedures. Risks of the procedure were discussed to include but not be limited to bleeding, pain, infection, difficulties with urination, injury to the urethra, prostate or bladder or surrounding tissues, injury from positioning on the table, swelling and bruising of the skin, and need for further procedures. . Procedure tolerated: well. Specimen: sent to pathology, 1. Right posterior medial 2. Right posterior lateral 3. Right base 4. Right anterior medial 5. Right anterior lateral 6. Left posterior medial 7. Left posterior lateral 8. Left base 9. Left anterior medial 10. Left anterior lateral 11. MARÍA ELENA - left peripheral zone mid gland . Complications: none. Anesthesia: General anesthesia LMA, Dr Lamas, periprostatic nerve block 1% lidocaine without epinephrine Findings: Calcifications: significant cluster of calcifications around apex. Cysts: left transition zone Hypoechogenic areas: left peripheral zone The seminal vesicles were visualized bilaterally and normal in size, shape and echotexture. BHUPINDER: no firm nodules, mildly enlarged, symmetric Complications: None DESCRIPTION OF PROCEDURE: After informed consent was obtained, the patient was taken to the operating room. After successful induction of General anesthesia LMA (patient did not tolerat MAC alone), a preoperative dose of IV antibiotics was given (2g ancef). The patient was placed in the dorsal lithotomy position on the operating table, taking care to pad all possible pressure points. An operative timeout was performed. A BHUPINDER was performed with findings above. The scrotum was elevated and held out of the way using tape/towel to expose the perineum. Excessive hair was shaved off the perineum. The perineum is prepped with Betadine solution. The [employer] UroNav fusion biopsy system was set up on the patient's right pelvis for transperineal approach of prostate biopsy. A well-lubricated ultrasound probe was inserted into the rectum and the prostate was aligned. The gland was visualized fully in axial and sagittal views to allow for the identification of anatomy and location of the urethra, as noted in findings. A sweep was done to render ultrasound images with preoperative MRI images. Visualization was slightly limited due to stool burden. The Precision Point device was secured on the ultrasound probe. The local anesthetic was delivered to the skin followed by periprostatic region and levators. After rendering of real-time images with the preoperative MRI prostate, the UroNav fusion biopsy system was used to target the region of interest. 4 core needle biopsies were obtained from the region of interest via transperineal approach. Thereafter, 2 biopsies were obtained from the posterior medial, posterior lateral, base, anterior lateral, and anterior medial of the left and right sides. The ultrasound probe was removed. The perineum was dressed with antibiotic ointment, fluffs and scrotal support. The patient was awaken from anesthesia and tolerated the procedure well without complications. CULTURES TAKEN: None. PATIENT CONDITION: Stable. PLAN: Void prior to dc home. The patient knows to call or go immediately to the emergency room should he develop fevers, chills, inability to urinate, bleeding or any other concerns. Follow-up in 1-2 weeks for pathology review. . Impression and Plan Diagnosis Elevated PSA (VGJ31-QP R97.20, Discharge, Medical). Diagnosis Elevated PSA (AVV69-ES R97.20, Discharge, Medical). Counseled: Patient, Family. Normal [facility] Comment on above: Result Comment: Elec tronically Signed By: Dewey COTTO, Milvia Polo.br\Date and Time Signed: 07/06/22 16:17 EST Outpatient Surgery Discharge Instructionon 07-06-2022 Outpatient Surgery Discharge Instruction [address] [address] Patient Discharge Instructions PERSON INFORMATION Name: EUNICE MARTE Date of : 1955 Current Date: 07/06/2022 15:49:28 PHYSICIANS Admitting Physician: Milvia Palomo MD Discharge Diagnosis: Elevated PSA SHANIQUABHAVESH EUNICE Alcantara has been given the following list of follow-up instructions, prescriptions, and patient education materials: PATIENT FOLLOW-UP INFORMATION Diet: Regular Discharge Activity: Ambulate as tolerated Discharge Restrictions: No driving for 24 hrs Call Your Doctor For: Persistent or heavy bleeding, Temperature above 101.5 degrees, Redness, swelling, or pus at operative site, Severe pain at the operative site IF UNABLE TO CONTACT YOUR PHYSICIAN AND YOU FEEL IT IS AN EMERGENCY, GO TO THE NEAREST EMERGENCY ROOM OR CALL 911 ILYDIA JAMES R, have received the attached patient education materials/instruction s and have verbalized understanding: May we do a follow up call? Yes No I was present when discharge instructions were given Patient Signature Date Clinican/Nurse Signature Date Follow up: With: Address: When: Milvia Palomo [address] [place] [address] [phone] Business (1) [facility] Marcos Snell[address] [address] [phone] Business (1) Comments: Office to followup appointment in 2 weeks for pathology review Type Location Start Finish State URO Office Visit [facility] 07/21/2022 9:30 AM 07/21/2022 9:45 AM Confirmed URO Office Visit [facility] 10/12/2022 10:30 AM 10/12/2022 10:45 AM Confirmed Pharmacy Information: You may receive a survey from [employer] asking you to rate your care experience. Your feedback is important and will help us understand what we do well and how we can improve the quality of care we provide to you, your loved ones and our community. It?s an honor to serve you. Thank you for choosing [facility] HERE ARE THE MEDICATION CHANGES THAT OCCURRED DURING YOUR HOSPITAL STAY Medications to Continue with No Changes Other Medications albuterol-ipratropium (DuoNeb 2.5 mg-0.5 mg/3 mL Soln-Inh) 3 Milliliter Nebulized inhalation (aerosol) every 4 hours as needed Shortness of breath or wheezing. amlodipine (amLODIPine 10 mg Tab) 1 Tablets By Mouth every day. aspirin (aspirin 81 mg Oral EC Tab) 1 Tablets By Mouth every day. atorvastatin (atorvastatin 80 mg Tab) 1 Tablets By Mouth every day. budesonide (budesonide 0.5 mg/2 mL Inh Susp) 2 Milliliter Nebulized inhalation (aerosol) 2 times a day as needed Shortness of breath or wheezing. cholecalciferol (cholecalciferol 2000 intl units oral tablet (Vitamin D3)) 1 Tablets By Mouth every day. glipiZIDE (glipiZIDE 10 mg Tab) 1 Tablets By Mouth 2 times a day. hydrochlorothiazide-l isinopril (hydrochlorothiazide- lisinopril 12.5 mg-20 mg Tab) 1 Tablets By Mouth 2 times a day. insulin lispro-insulin lispro protamine (Humalog Mix 75/25 KwikPen) 35 Units Subcutaneous twice a day (before meals). metformin (metformin 500 mg ER Tab) 1 Tablets By Mouth 2 times a day. mirabegron (Myrbetriq 50 mg oral tablet, extended release) 1 Tablets By Mouth every day. Refills: 6. montelukast (montelukast 10 mg Tab) 1 Tablets By Mouth every day. pioglitazone (pioglitazone 30 mg Tab) 1 Tablets By Mouth every day. polycarbophil (FiberCon 625 mg Tab) 2 Tablets By Mouth every day. tamsulosin (tamsulosin 0.4 mg Cap) 1 Capsules By Mouth every day. triamcinolone topical (triamcinolone Top 0.5% Crm) 1 Application Topical 3 times a day as needed Other (see comment)., skin PATIENT EDUCATION INFORMATION Instructions: Transperineal?Biopsy of the Prostate Discharge Instructions After your procedure: You may see blood in your urine for 4 to 5 weeks. When your urine turns red, limit your activities and drink plenty of fluids. This is normal and expected. If you go home with a Lr catheter in place, you will have it removed at your follow-up clinic appointment or by your own doctor (urologist). Your may be allowed to remove your Lr catheter at home. If so, our nursing staff will teach you how to remove the catheter. You may have discoloration (black/blue), pain, and swelling to the?perineal?area (between your thighs) for up to 3 weeks. Ice, elevation, and supportive underwear can help ease these symptoms. ? Medications: You may begin taking aspirin or other blood thinners. Antibiotics may be prescribed by your doctor. If they are, take them until they are gone. Tylenol alte (more content not included)... Normal [facility] Patient Education - Texton 1 09-05-2021 Patient Education - Text Transperineal?Biopsy of the Prostate Discharge Instructions After your procedure: You may see blood in your urine for 4 to 5 weeks. When your urine turns red, limit your activities and drink plenty of fluids. This is normal and expected. If you go home with a Lr catheter in place, you will have it removed at your follow-up clinic appointment or by your own doctor (urologist). Your may be allowed to remove your Lr catheter at home. If so, our nursing staff will teach you how to remove the catheter. You may have discoloration (black/blue), pain, and swelling to the?perineal?area (between your thighs) for up to 3 weeks. Ice, elevation, and supportive underwear can help ease these symptoms. ? Medications: You may begin taking aspirin or other blood thinners. Antibiotics may be prescribed by your doctor. If they are, take them until they are gone. Tylenol alternated with ibuprofen as needed for pain. Activity: You may begin driving 24 hours after surgery if you are not taking prescription pain medication. No heavy lifting for 2?days (nothing greater than 10 pounds). ? Diet: Drink plenty of fluids. Continue your normal diet. When to call the doctor/ go to the ER: If you experience a temperature of 101.5? F or greater If you experience chills with or without fever If you experience pain that gets worse If you have difficulty urinating or catheter-related problems ? Please call the office if you do not receive a call in the next 2 days to arrange for your post-operative appointment in 1-2 weeks [phone] or [phone] [facility] Progress Note-Nurseon 2021 Progress Note-Nurse In discharge paperwork it states that a responsible adult should be with a person who received anesthesia for at least 24 hours. states that they do not have anyone else at home it is just them--therefore she will need to be off work tomorrow as well to help care for the patient. This nurse did write a work excuse stating that a responsible caregiver must be with patient x24 hours. It would be safe for to return to work on as that is out of the anesthesia guideline protocol. [facility] Progress Note-Physicianon Progress Note-Physician Patient: EUNICE MARTE Age: 66 years Sex: Male : 1955 Associated Diagnoses: None Author: Scout Lamas Jr., DO Postoperative Information Post Operative Note: Post Anesthesia Care Unit. Anesthetic utilized: General. Health Status Allergies: Allergic Reactions (Selected) Moderate Penicillin- Unknown. Severity Not Documented Labetalol- Unknown (origin). 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 / Confirmed Elevated PSA / SNOMED CT 9365612715 / Confirmed Eosinophilia / SNOMED CT 7297201962 / Confirmed Erectile dysfunction / SNOMED CT 0881943168 / Confirmed GERD (gastroesophageal reflux disease) / SNOMED CT 375748059 / Confirmed Hyperlipemia / SNOMED CT 75496212 / Confirmed Hypertension / SNOMED CT 7290848384 / Confirmed Incontinence of urine / SNOMED CT 1047981871 / Confirmed 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 LLQ pain / SNOMED CT 299210458 / Confirmed Morbid obesity / SNOMED CT 678205411 / Confirmed Nocturia / SNOMED CT 129449065 / Confirmed ALLISON (obstructive sleep apnea) / SNOMED CT 362107453 / Confirmed Urgency of urination / SNOMED CT 834666450 / Confirmed Vitamin D deficiency / SNOMED CT 81505817 / Confirmed Resolved: History of CVA (cerebrovascular accident) / SNOMED CT 9905410575 Resolved: History of DVT (deep vein thrombosis) / SNOMED CT 9857553261 Resolved: Stroke / SNOMED CT 395762543 Physical Examination Vital Signs 07/06/2022 16:24 EST Temperature Oral 36.6 DegC Heart Rate Monitored 76 bpm Respiratory Rate 1 br/min LOW Systolic Blood Pressure 169 mmHg HI Diastolic Blood Pressure 98 mmHg HI Blood Pressure Location Right arm Mean Arterial Pressure, Monitered 122 mmHg SpO2 96 % 07/06/2022 15:53 EST Heart Rate Monitored 94 bpm Respiratory Rate Monitored 14 br/min Systolic Blood Pressure 160 mmHg HI Diastolic Blood Pressure 105 mmHg HI SpO2 100 % 07/06/2022 15:48 EST Heart Rate Monitored 95 bpm Respiratory Rate Monitored 12 br/min Systolic Blood Pressure 170 mmHg HI Diastolic Blood Pressure 106 mmHg HI SpO2 100 % Pain assessment: Pain Assessment 07/06/2022 16:24 EST Preliminary Pain Scale 0 , Controlled. General: Alert and oriented, No acute distress, No nausea. Adequate hydration.. Respiratory: Adequate air exchange.. Cardiovascular: stable. Neurologic: Normal sensory. Review / Management Condition: Stable. Assessment Anesthetic outcome No anesthetic complications noted. Plan Transfer/ Discharge: Condition stable. Normal [facility] Comment on above: Result Comment: Elec tronically Signed By: Scout Lamas Jr., DO\.br\Date and Time Signed: 07/06/22 17:00 EST Progress Note-Physician Patient: EUNICE MARTE Age: 66 years Sex: Male : 1955 Associated Diagnoses: None Author: Scout Lamas Jr., DO Preoperative Information Time patient last ate or drank:=== (NPO since midnight) Anesthesia history: Patient History: No prior problems with anesthesia.. Re-eval prior to induction: Inital eval reviewed: No significant interval change, Surgical H&P documented and on chart. Surgical consent signed and on chart.. Anesthesia results Review of Systems Cardiovascular: Negative except as documented in history of present illness. Respiratory: Negative. Neurologic: Negative. Health Status Allergies: Allergic Reactions (Selected) Moderate Penicillin- Unknown. Severity Not Documented Labetalol- Unknown (origin)., Allergies (2) Active Reaction penicillin Unknown labetalol Unknown (origin) Current medications: (Selected) Inpatient Medications Ordered HYDROmorphone 1 mg/mL injectable solution: 0.4 mg = 0.4 mL, Injection, IV Push, q4min PRN Pain for 5 dose(s), Stop date Limited # of times, Routine, Start date 07/06/22 13:54:00 EST, 07/06/22 13:54:00 EST Lactated Ringers IV Soo 1000 mL 1,000 mL: 1,000 mL, IV, 100 mL/hr, Routine, Start date 07/06/22 13:54:00 EST, 10 hour(s), Total volume (mL): 1,000, 104.2 kg, 2.3, m2 Lactated Ringers IV Soo 1000 mL 1,000 mL: 1,000 mL, IV, 150 mL/hr, Routine, Start date 07/06/22 11:30:00 EST, 6.7 hour(s), Total volume (mL): 1,000, 104.2 kg, 2.3, m2 Phenergan 25 mg/mL Injection: 12.5 mg = 0.5 mL, Injection, IV Push, q2min PRN Other (see comment) for 2 dose(s), Stop date Limited # of times, Routine, Start date 07/06/22 13:54:00 EST, 07/06/22 13:54:00 EST clindamycin additive + Premix Dextrose 5% Diluent 50 mL: 600 mg = 50 mL, Soln-IV, IV Piggyback, Once, Stop date 07/06/22 12:00:00 EST, Routine, Start date 07/06/22 12:00:00 EST, 100 mL/hr, Infuse over 30 minute(s) gentamicin additive + Sodium Chloride 0.9% intravenous solution 100 mL: 120 mg = 3 mL, Injection, IV Piggyback, Once, Stop date 07/06/22 12:00:00 EST, Routine, Start date 07/06/22 12:00:00 EST, 206 mL/hr, Infuse over 30 minute(s) Prescriptions Prescribed Myrbetriq 50 mg oral tablet, extended release: 50 mg = 1 tab(s), Oral, Daily, # 30 tab(s), Refills(s) 6, Pharmacy: [id number], 183, cm, 04/21/22 11:40:00 EDT, Height/Length Dosing, 110.3, kg, 04/21/22 11:40:00 EDT, Weight Dosing Documented Medications Documented DuoNeb 2.5 mg-0.5 mg/3 mL Soln-Inh: 3 mL, NEB, q4hr Shortness of breath or wheezing, Refill(s) 0 FiberCon 625 mg Tab: 1,250 mg = 2 tab(s), Oral, Daily, Refills(s) 0, Constipation Humalog Mix 75/25 KwikPen: 35 unit(s), SubCutaneous, BIDAC, Refill(s) 0, Blood glucose amLODIPine 10 mg Tab: 10 mg = 1 tab(s), Oral, Daily, High blood pressure aspirin 81 mg Oral EC Tab: 81 mg = 1 tab(s), Oral, Daily, Blood Thinner atorvastatin 80 mg Tab: 80 mg = 1 tab(s), Oral, Daily, Refills(s) 0, High cholesterol budesonide 0.5 mg/2 mL Inh Susp: 0.5 mg = 2 mL, NEB, BID, PRN Shortness of breath or wheezing, Refills(s) 0 cholecalciferol 2000 intl units oral tablet (Vitamin D3): 50 mcg = 1 tab(s), Oral, Daily, Refills(s) 0, Prophylaxis glipiZIDE 10 mg Tab: 10 mg = 1 tab(s), Oral, BID, Refills(s) 0, Blood glucose hydrochlorothiazide-l isinopril 12.5 mg-20 mg Tab: 1 tab(s), Oral, BID, Refill(s) 0, High blood pressure metformin 500 mg ER Tab: 500 mg = 1 tab(s), Oral, BID, Refills(s) 0, Blood glucose montelukast 10 mg Tab: 10 mg = 1 tab(s), Oral, Daily, Refills(s) 0, Asthma pioglitazone 30 mg Tab: 30 mg = 1 tab(s), Oral, Daily, Refills(s) 0, Blood glucose tamsulosin 0.4 mg Cap: 0.4 mg = 1 cap(s), Oral, Daily, Refills(s) 0, Bladder problems triamcinolone Top 0.5% Crm: 1 anne, Topical, TID Other (see comment), Refill(s) 0 Histories Past Medical History: Resolved Stroke (205716557): Resolved. History of CVA (cerebrovascular accident) (0277966666): Resolved. History of DVT (deep vein thrombosis) (7514852802): Resolved. Family History: Diabetes mellitus Mother Sister Hypertension Mother Sister Father Diabetes mellitus type 2 Mother Hyperlipidemia Mother CAD - Coronary artery disease Father Mother Procedure history: Transrectal biopsy of prostate using ultrasound (US) guidance ([id number]) on 09/08/2020 at 64 Years. Colonoscopy ([id number]) in 2011 at 55 Years. Arthroplasty of knee (14312120). Arthroscopy of shoulder (549377111). Insertion of catheter into spinal canal for infusion of therapeutic substance ([id number]). Lumbar discectomy (467319210). Comments: 06/25/2022 15:29 EDT - Lulu Peralta LPN L4-5 CE - Cataract extraction ([id number]). Social History Social & Psychosocial Habits Alcohol 06/25/2022 Use: Current Type: Beer Frequency: Daily Substance Abuse 06/25/2022 Risk Assessment: Denies Substance Abuse Tobacco 06/25/2022 Tobacco Use: Former smoker, quit more Smokeless tobacco use: Never (more content not included)... Normal [facility] Comment on above: Result Comment: Elec tronically Signed By: Scout Lamas Jr., DO.kong\Date and Time Signed: 07/06/22 14:09 EST Outside Radiologyon 07-05-20 Outside Radiology [id number]# [email or web address] Normal [facility] Coding Summary.on 07-02-2022 Coding Summary. CD:[id number] G h0bWw+PGhlYWQ+TF5DZEG lU75srZJzrN1NA6eUAY9R BLKSLOIKGX0RBE4zzUG8S KatL2ZrcwZh ZmjzlSLdFD75OGl1JJL7o TmkVAvdhU4zmVBpJ4a0Bn OgQS33jN11KMvlYARrUyZ 3LjZpbjsgbWFy D5rnLlXgqJEpWvg+PHRhY mxlIHdpZHRoPScxMDAlJy EjdCgkDA2uSw1zOHNiTQS vbGxhcHNlOiBj w6njQRZySTzaKT2ywEgvU 6XorAQ8THEyq7q4Pu95zQ I+SPAvAGS0sNouWFzsk75 2DySrp2mrDDN5 xPOuWVbvREV0B62yx3U9R FGoCDGjIYZ8bUM4pJ3hyG saphrfY5HmlZBcVlV4SHU 1pFQvrS3enNaz njzltT6qBdq+J68ITM5FY DVUUB6HFbe6A5QtCgfxzR I+XA56WEUhNR94mXRmjQT ao2mhaBf4GcAx EZFeLOG2rTkdUDzpt8DpR MOiS77unMEjn9C7BZHioI fpeGXbDoHxdTM9tI9jWMk vezblw8haghpn Nunet9dkgl81uA13O70mE LhdFQRkJSN3ITYbXXUavT izft3fgD9eOa0+MAdvd2g iq3geeIg0OzOi ITTkhoQsvIzkETI9n3PqN b11F7HbeQgyw3MmVws4wa 65wVEwq2M4oRR3WXkgYED ksJ9wWPliAtM9 GCDiOwCsfQ01uZRwDUtzZ m4cgGvliBcbHP1hSCBkog twIIPuuE4uLUXthRQlqXt pUQ3dWAUbnmsz i705FqBeOOP2OVSiePTyY 9DkwY4fJnDlMYIpZSJqT9 KyaNZsHOdpR868WPcuMkZ 0KYPnncLlC5Cw SJFytTrqOfP3c6N0Wm9Jx 2NvcdgnJAB3GAbdTGKcDd IkWqMuBdL8D4EvRtj4VMU atIziIA4wQ7Sx BTMwlnyrsbirjZP1HKGlL OGjlR95oEOjRDbaCv7gi5 E2q492LDZrAXPucW09Nx2 udDogMTBwdCBU uV3yjejhm7tbjtouGoZaB FJaHSz5YMq8YYIkoMpbZg VyEHK7WeR1TPM2nJViiS3 xnDwoaezlyS6u Oyc+Y26atW6tXOX8WLX4z zryMEInudOvRW06PG96E1 RyPjwvdGFibGU+PGRpdiB avHcqFL4sXnJe u0ehl0FnFIkaV8OcTGXwR OgaYww8TNZyROE5nWO5tH 0rCOFmUUwco4C2oRF6C5S fowJmub4wk9vy EGZlTIrzZ55nwUOac4F1E RSgyDA7VWNgdSvsFdVsjA 93Oyc+DTHraLqtq6SsHnt ac1fcp4xsxOe6 XaZmBGJywdCvkWfbQGY8q 7BnLm21R58oTYelHKQuGD QrNGKmMAMgkVztgd0zjZ1 wIi8+PGNvbCB3 rSV8kF0uJFGtLpD5JWvrC 018IqIkkQJiSnxnu8flt5 ywlGe3ThSbXIBzprLphXk mWUE3u5YiAi76 Z98pWGouXKUmYKTlMFWbK NGsjBwpwk9ztM6iHy1+PC 1jw0dpet61fG89lCS+PHR cQXA1eZopTZtv DIHbpS5iRGctWoA1OPNgN xMtzL13rEHjBMuuJt8qfA mzlZluAW0pWIKvtteyu11 8IeDpm9xqWCJp fFOzTEbbUMP2Q61xa7Y4T FZlNCSfDQJ6bDG1cT9hlQ lnbjogbGVmdDsgdmVydGl dRGxaBUecG096 IHRvcDsnPlBhdGllbnQgT xFoQRp0F2FfHmh4HVTanH tkOS3ggDTjSWvuSz1obHv ctUmxKT1lZRGd vtcsd553XxBde1koHWFdq LNpBOnoQCV3J22oa2Q9CR IcWMIrNJU5xXO0tW4vdVt nbjogbGVmdDsg mdSedKdtOJraOFfgA268N HRvcDsnPkJpcnRoIERhdG X8RE36TS80cGLzz2U6iLH 7O8WzPMNaebez fqpksKV7ICRfHOTccC04F j9zrRehVm1pGDDhYJZ0EA DsuXXzO6DvzP3vMjXlNRO wDBYhA4OevXDq TVbcK425TBbbDtI5FGCrz uPqS7SbKXUipAwbFsS4g7 D4Qe0DQ0R0QQ90VD38uSX hq6L5nSP0P4Wz IGNbpxhsnrtooBK0DSYoR XOuwB78Dj9crOjdMt5fNX ScPMM9HWPztUGlD3RagR7 yOiAjMDAwMDAw Z5ZjmVFnHMgbD696QGahE jK8DKDbryXpC8LwBQMikI mcPrN6l8X8Rg0WOPj3VT7 3EU90vJLpc1V0 sNB7D5RiNMBsmskfadnki FD5UHMdXTQtbT20Rq8ocB jkCk3mBXXsSPG6BSFhzRB wO7KzpG4xJlPp IDHpOINoG5IgzYKtKNheM 275AJfuXkK9BXVyhuFhF0 IzGKTdgOhvJhQ0c8L2Ns3 DKHFaPV25NVZ3 hLH0MH07TA43K7VqQvgfr GFibGU+PHRhYmxlIHdpZH RoPScxMDAlJyBzdHlsZT0 xYy0hLNNpVIYr jAcukGUqMpJbd1eiOTZjK HpkJD5lzPhlV7BezEW0IG Fqp3s0Im86U23wO9EdvWK +HXRspIS8yLZ1 vO9uVoZvCaP2PDjtP499L dXifUBvVxamh4bak6cmmU r6OlE1VLGxdjBxkNzmHBT 2q6YfMr56U22k IHdpZHRoPSIxNSUiIHZhb Easwn2voB5cTd4+PGNvbC Z7tKE4zZ7bGcHxWaH1KNj hZ284JnYlgOXo Dfmrw5axc9sphWq0GgQlI YLzwcWncVrfQED8e1WnSg 04J4GecKygs7WdRnh5fh6 9xDUsl7G6aRU1 O1XpHUJlukvoyLHvjAilB Y5mOBTmdmyqOTVvpP9aDZ DlL5w7FuNpIqD8LHtuQ6D thsG2KUXrgYQw XGjzAPH7T11rr3A1WGSbT ZNpHII1mYN9sX5xfNyqpe ogbGVmdDsgdmVydGljYWw zPAijI472ZQBu xOzyVAXkvT3rEMEbmUTjl SlgKK3xTORpeakvLcnDET RFTEJVUkcsIEpBTUVTIFI 9Y7ReTdt6IYQg wNuvAC3bbROeMUxoXd5er LdkvNpcHV3iSXFmcrqtMN PggW7vSEIgwIJhdEpkXT9 vELNqjqyub867 SaEtOSD3MMFmwWDpD9Pht E6jHfTzLJVzEPVbN1TkhU SaRKxtI484IKsoKkV5SXE svgJaY3EtNUUu fHieDcE8f9C3Fu6oZw8pK T3hZIS0ZA94DC67eXBgn8 Z0qGP7R0PmNVUgyxhfvll gsKG6TKRcCITk bQ32tDQaZPemXj7lm0W2e 230HUDuXDUhzT64Xw6wbQ twCFCxkBVKqZ2otjthk0k vcjogIzAwMDAw ICq5WOr1KDBiyHoqYaKcE YS7TvA7SFP8bIJjrF8hqE hudvalbS7uIdz+NjYgWWV paxH4V5MzXid9 SFGysLufPL8idWWdUDjfF w5jeAewbKmlHY7dADVkef gfIVVfjX7xJDEpnUPbmUx bIC0lBQImcexq g020AtQfTIR5EHLckIUcW 9AolC4aNdTvZQMyMOShI4 ZkhIGyPRhtB382NPfxLeK 7KWYtdlGmV0Hx PMBsnXikFeB2q9J8Kd1XG TfaGH99LQ52aDNii5A0aA V6Q5MvTKLjivpvncxuwXY 4ICHeEOYxbK26 sWKnMToaJt7ci2G8m337F VXpICScmO02Os4rjQchCL LnoUJGdT9fglkzh5ecmxq gIzAwMDAwMDt0 YRz3DYBmyOgcTbCvIAY7K jZ0DVI5sJGhbR7hmOsmfg gagS3fOey+UmVjdXJyaW5 kDC08IX28K8Fc PjwvdGFibGU+PHRhYmxlI HdpZHRoPScxMDAlJyBzdH keHP2nFj5aWMEaXYMrqOk svOJzZrCpb8kh EFNyNMmpVR1zcGhgC3Uym OD2ORErn6e7Ti16K49yQ5 JvdXA+RBNbfJM0nVB2iB4 sPzQyWuN6KMgr P579DhUnjOXfMgyqd6gvs 8ehkZs5JwNnFKGprnDfwM kqZBL2j7HtLw35B66vHLo pZHRoPSIyMCUi RTQdiCiosi8spL8eTn4+P YPbeOA7cVQ0rN7gKcFnRt L0CUklJ047XrWhyAJlTmo iG32qX4ChdVK+ IMDlLfc3MSRyaGfdXL8ss FFjSMmhLo2mMZZ1BnIfYu IwOWeuH6UvDUFnrxjsusd yvVA5TNXrQSJm lO97Ib1udErjYn5rIIQfO PF1NKYkeCIhG3ZjdH5uQx AuOJJeSTQrQ4FgeSLeIRo eY884IIvuIqI5 IPDkqiRkC3GwKMKipAqmO oY9c5B2Vg4WfOsrmLVaZP 9eBzFlALr5Y5BcOii5PWT hbQvhCQ2jbMWj CAapFu9qaPhusDasFY1yJ DYbsuels486DiKzs0kiAC JeeSNjWIapMAD2E10at8U 4LAWfYRCoCRH8 lHT6kB6xhHgggmfeaGIlh DsgdmVydGljYWwtYWxpZ2 10EMMobYaiQcRYHjk7L9Q zNpo6NMMgsBqa SH4qpAUiYDmeYc2hcDsxd EwkTS0mHKDmwdebx847Io Bxc4zsKHFvoKOxXEntGAS 1L07mu1F6GSKb WSUyXFO1jTE3fL6qzFghg jogbGVmdDsgdmVydGljYW tmBEgfP631EZYfxMqxVo5 YZhe2N0FnXgb1 DHCqrYabUP8dtABwGJhhQ w3dwRnpoPbzKX9mQMEzgd rrp479YwCks2nmUTHyvNI hBNylGQY7I04q n6T2HIWfJPRuGAW7kIW3l H9lcKgtinymdFKrlAnyjv YqjMrcPIuqTUuxM631HJK vcDsnPlBheWVy OjwvdGQ+AN75va64V3LsN ofnSio9HHCtKNW1fTE8iR 2xSWTeBNbhd1R4eZR0W4I frnNsko3zt5uz YXBz (more content not included)... Normal [facility] Auto Diffon 06-30-2022 Basophils/100 WBC (Bld) 2.7 % High 0.0-2.0 [facility] Comment on above: Order Comment: Order Added by Discern Expert. Performed By: #### 2 092139, 73907149, 1637287, 4332894, [id number] #### [facility] [address] [place] [address] Basophils/Leukocytes Auto (Bld) [Pure # fraction] 0.2 E9/L Normal 0.0-0.2 [facility] Comment on above: Order Comment: Order Added by Discern Expert. Performed By: #### 2 398799, 36181460, 1598572, 5684680, 25340456 #### [facility] [address] [place] [address] Eosinophils/100 WBC (Bld) 7.5 % Normal 0.0-8.0 [facility] Comment on above: Order Comment: Order Added by Discern Expert. Performed By: #### 2 058408, 59028518, 4244229, 0461850, 44352137 #### [facility] [address] [place] [address] Eosinophils/Leukocyte s Auto (Bld) [Pure # fraction] 0.5 E9/L Normal 0.0-0.5 [facility] Comment on above: Order Comment: Order Added by Discern Expert. Performed By: #### 2 812311, 40757964, 3867164, 4917293, 52449348 #### [facility] [address] [place] [address] Lymphocytes/100 WBC (Bld) 35.7 % Normal 14.0-50.0 [facility] Comment on above: Order Comment: Order Added by Discern Expert. Performed By: #### 2 202724, 65124197, 7426242, 0330796, 02821797 #### [facility] [address] [place] [address] Lymphocytes/Leukocyte s Auto (Bld) [Pure # fraction] 2.3 E9/L Normal 1.0-4.0 [facility] Comment on above: Order Comment: Order Added by Discern Expert. Performed By: #### 2 950365, 72457516, 3403853, 8269127, 33084986 #### [facility] [address] [place] [address] Monocytes/100 WBC (Bld) 7.0 % Normal 4.0-14.0 [facility] Comment on above: Order Comment: Order Added by Discern Expert. Performed By: #### 2 245014, 76226548, 2131961, 7077295, 08330087 #### [facility] [address] [place] [address] Monocytes/Leukocytes Auto (Bld) [Pure # fraction] 0.5 E9/L Normal 0.2-1.0 [facility] Comment on above: Order Comment: Order Added by Discern Expert. Performed By: #### 2 011197, 00057562, 3047932, 9014480, 23450232 #### [facility] [address] [place] [address] Neutrophils/100 WBC (Bld) 47.1 % Normal 36.0-75.0 [facility] Comment on above: Order Comment: Order Added by Discern Expert. Performed By: #### 2 406976, 46410754, 1498447, 7356131, 11561813 #### [facility] [address] [place] [address] Neutrophils/Leukocyte s Auto (Bld) [Pure # fraction] 3.1 E9/L Normal 2.0-7.5 [facility] Comment on above: Order Comment: Order Added by Discern Expert. Performed By: #### 2 075971, 71910414, 6230551, 2645895, 57227602 #### [facility] [address] [place] [address] BMPon 06-30-2022 Anion gap [Moles/Vol] 13 mmol/L Normal 6-16 [facility] Comment on above: Performed By: #### 2 474522, 96433944, 4182638, 7371068, 69996498 #### [facility] [address] [place] [address] Calcium [Mass/Vol] 9.4 mg/dL Normal 8.9-11.1 [facility] Comment on above: Performed By: #### 2 849203, 92594699, 5890582, 8213098, 29357618 #### [facility] [address] [place] [address] Chloride [Moles/Vol] 99 mmol/L Low 101-[address] [facility] Comment on above: Performed By: #### 2 065435, 94408205, 7010389, 0649127, 99705473 #### [facility] [address] [place] [address] CO2 [Moles/Vol] 25 mmol/L Normal 21-31 [facility] Comment on above: Performed By: #### 2 403382, 67979040, 9394869, 3203814, 80431077 #### [facility] [address] [place] [address] Creatinine [Mass/Vol] 1.0 mg/dL Normal 0.5-1.3 [facility] Comment on above: Performed By: #### 2 322685, 27870613, 3248893, 3476654, 18670106 #### [facility] [address] [place] [address] Glucose [Mass/Vol] 241 mg/dL High 55-199 [facility] Comment on above: Result Comment: If t his glucose result represents a fasting glucose, interpretation should refer to the following reference range: 55-99 mg/dL Performed By: #### 2 792504, 27401601, 9231589, 0301454, 69879455 #### [facility] [address] [place] [address] Potassium [Moles/Vol] 3.7 mmol/L Normal 3.5-5.3 [facility] Comment on above: Performed By: #### 2 118203, 83787118, 3059376, 5245377, 37167858 #### [facility] [address] [place] [address] Sodium [Moles/Vol] 133 mmol/L Low 135-145 [facility] Comment on above: Performed By: #### 2 796456, 38140658, 5682489, 3076960, 68587152 #### [facility] [address] [place] [address] Urea nitrogen [Mass/Vol] 12 mg/dL Normal 5-21 [facility] Comment on above: Performed By: #### 2 691182, 25457124, 9962462, 2419256, 22073474 #### [facility] [address] [place] [address] Urea nitrogen/Creatinine [Mass ratio] 12 No Units Normal 10-20 [facility] Comment on above: Performed By: #### 2 444973, 29639575, 5477076, 1868499, 77238258 #### [facility] [address] [place] [address] CBC w/ Auto Diffon 2 Erythrocyte distribution width (RBC) [Ratio] 14.0 % Normal 10.9-14.2 [facility] Comment on above: Performed By: #### 2 381305, 24684935, 0682598, 6868023, 37390358 #### [facility] [address] [place] [address] Hematocrit (Bld) [Volume fraction] 40.8 % Normal 37.7-49.0 [facility] Comment on above: Performed By: #### 2 968019, 76978407, 0597583, 9440906, 35467451 #### [facility] [address] [id number] Hemoglobin (Bld) [Mass/Vol] 13.9 g/dL Normal 13.5-17.5 [facility] Comment on above: Performed By: #### 2 783622, 94071616, 1324773, 0638239, 64159760 #### [facility] [address] [place] [address] MCH (RBC) [Entitic mass] 27.9 pg Normal 27.0-34.0 [facility] Comment on above: Performed By: #### 2 243891, 64299633, 9642495, 4428184, 91069011 #### [facility] [address] [place] [address] MCHC (RBC) [Mass/Vol] 34.1 g/dL Normal 31.4-36.0 [facility] Comment on above: Performed By: #### 2 686979, 84204250, 9536262, 3178041, 09096024 #### [facility] [address] [place] [address] MCV (RBC) [Entitic vol] 81.8 fL Normal 80.0-100.0 [facility] Comment on above: Performed By: #### 2 545256, 93694859, 9557530, 7401624, 25928974 #### [facility] [address] [place] [address] Platelet mean volume (Bld) [Entitic vol] 8.3 fL Normal 6.4-10.8 [facility] Comment on above: Performed By: #### 2 907632, 39074018, 7471040, 9841094, 84573528 #### [facility] [address] [place] [address] Platelets (Bld) [#/Vol] 191.0 E9/L Normal 150.0-500.0 [facility] Comment on above: Performed By: #### 2 050176, 03485735, 3162748, 8401543, 57183749 #### [facility] [address] [place] [address] RBC (Bld) [#/Vol] 5.0 E12/L Normal 4.3-5.9 [facility] Comment on above: Performed By: #### 2 754674, 23636118, 7100113, 9137866, 04886340 #### [facility] [address] [place] [address] WBC corrected for nucl RBC Auto (Bld) [#/Vol] 6.5 E9/L Normal 4.0-11.0 [facility] Comment on above: Performed By: #### 2 146782, 92735557, 3012882, 8980597, 73102673 #### [facility] [address] [place] [address] CHEMISTRYOrdered By: SYSTEM SYSTEM on 06-30-2022 Anion gap [Moles/Vol] 13 mmol/L Normal 6 - 16 mEq/L [facility] Calcium [Mass/Vol] 9.4 mg/dL Normal 8.9 - 11. 1 mg/dL [facility] Chloride [Moles/Vol] 99 mmol/L Low 101 - 1 11 mmol/L [facility] CO2 [Moles/Vol] 25 mmol/L Normal 21 - 31 mmol/L [facility] Creatinine [Mass/Vol] 1.0 mg/dL Normal 0.5 - 1.3 mg/dL [facility] GFR/1.73 sq M.predicted among blacks MDRD (S/P/Bld) [Vol rate/Area] mL/min/1.73 m2 Normal >=59mL/min/1.7 3 m2 [facility] Chem S GFR/1.73 sq M.predicted among non-blacks MDRD (S/P/Bld) [Vol rate/Area] mL/min/1.73 m2 Normal >=59mL/min/1.7 3 m2 [facility] Chem S Glucose [Mass/Vol] 241 mg/dL High 55 - 199 mg/dL [facility] Potassium [Moles/Vol] 3.7 mmol/L Normal 3.5 - 5.3 mmol/L [facility] Sodium [Moles/Vol] 133 mmol/L Low 135 - 145 mmol/L FT Remisol Urea nitrogen [Mass/Vol] 12 mg/dL Normal 5 - 21 mg/dL FT Remisol Urea nitrogen/Creatinine [Mass ratio] 12 mg/mg Normal 10 - 20 FT Remisol COAGULATIONOrdered By: Khalida Khalil on 06-30-2022 aPTT Coag (PPP) [Time] 33.6 s Normal 25.1 - 36.5 second(s) [facility] Auto Coag INR Coag (PPP) [Relative time] 1.1 {INR} Invalid Interpretation Code [facility] Auto Coag PT Coag (PPP) [Time] 11.8 s Normal 9.4 - 1 2.5 second(s) [facility] Auto Coag Consent for Treatmenton Consent for Treatment [id number]#1 .00CD:127 Normal [facility] Consent for Treatment [id number]# 1.00CD:127 Normal [facility] HEMATOLOGYOrdered By: SYSTEM SYSTEM on 06-30-2022 Basophils/100 WBC (Bld) 2.7 % High 0.0 - 2.0 % [facility] HemeAutoSS Basophils/Leukocytes Auto (Bld) [Pure # fraction] 0.2 E9/L Normal 0.0 - 0.2 E9/L [facility] Eosinophils/100 WBC (Bld) 7.5 % Normal 0.0 - 8.0 % [facility] Eosinophils/Leukocyte s Auto (Bld) [Pure # fraction] 0.5 E9/L Normal 0.0 - 0.5 E9/L [facility] Lymphocytes/100 WBC (Bld) 35.7 % Normal 14.0 - 50.0 % [facility]eAuto[facility] Lymphocytes/Leukocyte s Auto (Bld) [Pure # fraction] 2.3 E9/L Normal 1.0 - 4.0 E9/L [facility] Monocytes/100 WBC (Bld) 7.0 % Normal 4.0 - 14.0 % [facility] Monocytes/Leukocytes Auto (Bld) [Pure # fraction] 0.5 E9/L Normal 0.2 - 1.0 E9/L [facility] Neutrophils/100 WBC (Bld) 47.1 % Normal 36.0 - 75.0 % [facility] Neutrophils/Leukocyte s Auto (Bld) [Pure # fraction] 3.1 E9/L Normal 2.0 - 7.5 E9/L [facility] HEMATOLOGYOrdered By: Rosanna Cardona on 06-30-2022 Erythrocyte distribution width (RBC) [Ratio] 14.0 % Normal 10.9 - 14.2 % [facility] Hematocrit (Bld) [Volume fraction] 40.8 % Normal 37.7 - 49.0 % [facility] Hemoglobin (Bld) [Mass/Vol] 13.9 g/dL Normal 13.5 - 17.5 gm/dL [facility] MCH (RBC) [Entitic mass] 27.9 pg Normal 27.0 - 34.0 pg [facility] MCHC (RBC) [Mass/Vol] 34.1 g/dL Normal 31.4 - 36.0 gm/dL [facility] MCV (RBC) [Entitic vol] 81.8 fL Normal 80.0 - 100.0 fL [facility] Platelet mean volume (Bld) [Entitic vol] 8.3 fL Normal 6.4 - 10.8 fL [facility] Platelets (Bld) [#/Vol] 191.0 E9/L Normal 150.0 - 500.0 E9/L [facility] RBC (Bld) [#/Vol] 5.0 E12/L Normal 4.3 - 5.9 E12/L [facility] WBC corrected for nucl RBC Auto (Bld) [#/Vol] 6.5 E9/L Normal 4.0 - 11.0 E9/L [facility] HemeAutoSS PT & PTTon 06-30-2022 aPTT Coag (PPP) [Time] 33.6 second(s) Normal 25.1-36.5 [facility] Comment on above: Result Comment: Para meter 15 days - 4 weeks 1 - 5 months 6 - 11 months 1 - 5 years 6 - 10 years 11 - 17 years PTT Mean: 35.4 (27.6-45.6) Mean: 33.5 (24.8-40.7) Mean: 32.4 (25.1-40.7) Mean: 31.6 (24.0-39.2) Mean: 31.6 (26.9-38.7) Mean: 31.0 (24.6-38.4) Pediatric Reference ranges were obtained from a study by Jackson Aldridge et al. prepared from 1437 samples obtained at 7 different centers using the same coagulation reagent and instrumentation as [facility]. Currently there are no coagulation studies available worldwide for children to 14 days, and no normal ranges. Heparin therapeutic range (represented by Anti-Factor Xa activity of 0.2 - 0.4 U/mL) corresponds to PTT of 56.6 - 109.0 sec. Performed By: #### 2 [id number] #### [facility] [address] [place] [address] INR Coag (PPP) [Relative time] 1.1 {INR} Invalid Interpretation Code [facility] Comment on above: Result Comment: INR results are specifically intended to assess patients stabilized on long-term Anticoagulation therapy suggested INR?s ?Less Intensive Anticoagulation? 2.0 ? 3.0 Conventional Range 3.0 ? 4.5 Performed By: #### 2 [id number] #### [facility] [address] [place] [address] PT Coag (PPP) [Time] 11.8 second(s) Normal 9.4-12.5 [facility] Comment on above: Result Comment: 15 d ays - 4 weeks 1 - 5 months 6 -11 months 1 ? 5 years 6 ? 10 years 11 -17 years Mean: 11.2 (9.5 ? 12.6) Mean: 11.0 (9.7 ? 12.8) Mean: 11.0 (9.8 ? 13.0) Mean: 11.3 (9.9 ? 13.4) Mean: 11.7 (10.0 ? 14.6) Mean: 11.8 (10.0 - 14.1) Pediatric Reference ranges were obtained from a study by Jackson Aldridge et al. prepared from 1437 samples obtained at 7 different centers using the same coagulation reagent and instrumentation as [facility]. Currently there are no coagulation studies available worldwide for children to 14 days, and no normal ranges. Performed By: #### 2 [id number] #### [facility] [address] [place] [address] UA With Cult Reflexon 2021 Bilirubin Ql (U) Negative Normal Negative [facility] Comment on above: Performed By: #### 1 [id number] ####[facility] [address] [place] [address] Clarity (U) CLEAR Normal Clear [facility] Comment on above: Performed By: #### 1 [id number] ####[facility] [address] [place] [address] Color (U) YELLOW Normal Yellow [facility] Comment on above: Performed By: #### 1 [id number] ####[facility] [address] [place] [address] Epithelial cells.squamous LM.HPF (Urine sed) [#/Area] 0-2 Normal 0-2 [facility] Comment on above: Performed By: #### 1 [id number] ####[facility] [address] [place] [address] Glucose Test strip (U) [Mass/Vol] 1+ Abnormal Negative [facility] Comment on above: Performed By: #### 1 [id number] ####[address] [address] Hemoglobin Ql (U) TRACE Abnormal Negative [facility] Comment on above: Performed By: #### 1 [id number] ####[address] [address] Ketones (U) [Mass/Vol] Negative Normal Negative [facility] Comment on above: Performed By: #### 1 [id number] ####[address] [address] Edie.plasma/Lithiu m.RBC (Bld) [Mass ratio] 4-20 Normal 0-3 [facility] Comment on above: Performed By: #### 1 [id number] ####[address] [address] Nitrite Ql (U) Negative Normal Negative [facility] Comment on above: Performed By: #### 1 [id number] ####[address] [address] pH (U) 5.5 [pH] Invalid Interpretation Code 5.0-9.0 [facility] Comment on above: Performed By: #### 1 [id number] ####[address] [address] Protein (U) [Mass/Vol] Negative Normal Negative [facility] Comment on above: Performed By: #### 1 [id number] ####[address] [address] Specific gravity (U) [Rel density] 1.025 Invalid Interpretation Code 1.005-1.030 [facility] Comment on above: Performed By: #### 1 [id number] ####[address] [address] Type of Urine collection method Clean Catch Normal [facility] Comment on above: Performed By: #### 1 [id number] ####[address] [address] Urobilinogen Qn (U) 0.2 {Shaka'U}/dL Normal 0.0-1.0 [facility] Comment on above: Performed By: #### 1 [id number] ####[facility] [address] [place] [address] WBC Auto Ql (U) Negative Normal Negative [facility] Comment on above: Performed By: #### 1 [id number] ####[facility] [address] [place] [address] WBC LM.HPF (Urine sed) [#/Area] 0-5 Normal 0-5 [facility] Comment on above: Performed By: #### 1 [id number] ####[facility] [address] [place] [address] URINALYSISOrdered By: Duglas Khalil on 06-30-2022 Bilirubin Ql (U) Negative (06/30/22 4:35 PM) Normal Negative [facility] UA Auto SS Clarity (U) Clear (06/30/22 4:35 PM) Normal Clear [facility] UA Auto SS Color (U) Yellow (06/30/22 4:35 PM) Normal Yellow [facility] UA Auto SS Epithelial cells.squamous LM.HPF (Urine sed) [#/Area] 0-2 /HPF Normal 0-2/HPF [facility] UA Aut o SS Glucose Test strip (U) [Mass/Vol] 1+ *ABN* (06/30/22 4:35 PM) Invalid Interpretation Code Negative [facility] UA Auto SS Hemoglobin Ql (U) Trace *ABN* (06/30/22 4:35 PM) Invalid Interpretation Code Negative [facility] UA Auto SS Ketones (U) [Mass/Vol] Negative (06/30/22 4:35 PM) Normal Negative [facility] UA Auto SS Edie.plasma/Lithiu m.RBC (Bld) [Mass ratio] 4-20 /HPF Normal 0-3/HPF [facility] UA Auto SS Nitrite Ql (U) Negative (06/30/22 4:35 PM) Normal Negative [facility] UA Auto SS pH (U) 5.5 *NA* (06/30/22 4:35 PM) Invalid Interpretation Code 5.0 - 9.0 [facility] UA Auto SS Protein (U) [Mass/Vol] Negative (06/30/22 4:35 PM) Normal Negative [facility] UA Auto SS Specific gravity (U) [Rel density] 1.025 *NA* (06/30/22 4:35 PM) Invalid Interpretation Code 1.005 - 1.030 [facility] UA Auto SS UA Spec Desc Clean Catch (06/30/22 4:35 PM) Normal [facility] UA Auto SS Urobilinogen Qn (U) 0.7071885 {Shaka'U}/dL Normal 0.0 - 1.0 EU/dL [facility] UA Auto SS WBC Auto Ql (U) Negative (06/30/22 4:35 PM) Normal Negative [facility] UA Auto SS WBC LM.HPF (Urine sed) [#/Area] 0-5 /HPF Normal 0-5/HPF [facility] UA Auto SS XR Chest 2 Viewson XR Chest 2 Views Exam Date/Time: 06/30/2022 16:33 EST Reason for Exam: PRE OP Report IMPRESSION: There are no acute cardiopulmonary changes. CLINICAL HISTORY: PRE OP COMPARISON: FINDINGS: The cardiomediastinal silhouette is unremarkable. The aorta is ectatic. There is a loop recorder the soft tissues. The lungs are free of infiltrates effusions or consolidations. The bones and soft tissues are within normal limits. FINAL REPORT Dictated: 06/30/2022 5:12 pm Paul Brown MD, V. Signed (Electronic Signature): 06/30/2022 5:12 pm Signed by: Paul Brown MD, V. Transcribed by: LISANDRO Technologist: VINNY Hopoer [facility] eGFRon 06-30-2022 GFR/1.73 sq M.predicted among blacks MDRD (S/P/Bld) [Vol rate/Area] mL/min/{1.73_m2} Normal >=59 [facility] Comment on above: Order Comment: Order added by Discern Expert. Result Comment: eGFR is race adjusted. AA=. Performed By: #### 2 [id number], [id number] ####[facility] [address] [place] [address] GFR/1.73 sq M.predicted among non-blacks MDRD (S/P/Bld) [Vol rate/Area] mL/min/{1.73_m2} Normal >=59 [facility] Comment on above: Order Comment: Order added by Discern Expert. Result Comment: Paper Feeder anderson kidney disease could be indicated at eGFR's of less than 60 mL/min/1.73m2. Kidney failure is indicated at less than 15 mL/min/1.73m2. Performed By: #### 2 [id number], [id number], [id number], [id number] ####[facility] [address] [place] [address] COVID-19 (MC)on 06-29-2022 Performing Instrument FT Willie 2 Normal Fis [facility] Comment on above: Performed By: #### 2 [id number] ####[address] [place] [address] SARS-CoV-2 (COVID-19) RNA NISHANT+probe Ql (Resp) Not detected Normal Not Detected [facility] Comment on above: Result Comment: This test result should be correlated with clinical presentations and medical history by a healthcare provider to determine its clinical significance. This assay was performed by a reverse transcriptase real-time polymerase chain reaction (rt PCR) method on the [employer]E system. This test has been authorized only for the detection of nucleic acid from SARS-CoV-2, not for any other viruses or pathogens. This test has not been FDA cleared or approved. This test has been authorized by FDA under an Emergency Use Authorization (EUA). This test is only authorized for the duration of time the declaration on that circumstances exist justifying the authorization emergency use of in vitro diagnostic tests for detection and/or diagnosis of COVID-19 infection under section 564 (b) (1) of the Act, 21 U.S.C. 360 bbb-3 (b) (1), unless authorization is terminated or revoked sooner. Performed By: #### 2 [id number] ####[facility] [address] [place] [address] SARS-CoV-2 (COVID-19) RNA NISHANT+probe Ql (Unsp spec) Pass Normal Pass [facility] Comment on above: Performed By: #### 2 [id number] ####[place] [address] Specimen source Nom (Unsp spec) Nasal Normal [facility] Comment on above: Performed By: #### 2 [id number] ####[place] [address] Facesheeton 06-29-2022 Facesheet [id number] .00CD:127 Normal [facility] COVID-19 (MC)on 06-28-2022 ADMITTED TO INTENSIVE CARE UNIT FOR CONDITION OF INTEREST:FIND:PT: NO Normal [facility] Comment on above: Performed By: #### 2 [id number] ####[place] [address] EMPLOYED IN A HEALTHCARE SETTING:FIND:PT: Unknown Normal [facility] Comment on above: Performed By: #### 2 [id number] ####[place] [address] FIRST TEST FOR CONDITION OF INTEREST:FIND:PT: Unknown Normal [facility] Comment on above: Performed By: #### 2 [id number] ####[place] [address] HAS SYMPTOMS RELATED TO CONDITION OF INTEREST:FIND:PT: Unknown Normal [facility] Comment on above: Performed By: #### 2 [id number] ####[place] [address] HOSPITALIZED FOR CONDITION OF INTEREST:FIND:PT: NO Normal [facility] Comment on above: Performed By: #### 2 [id number] ####[place] [address] STATUS:FIND:PT: NO Normal [facility] Comment on above: Performed By: #### 2 [id number] ####[place] [address] RESIDES IN A CONGREGATE CARE SETTING:FIND:PT: Unknown Normal [facility] Comment on above: Performed By: #### 2 [id number] ####[facility] [address] [facility] [id number] Consent for Procedure/Surger yon 06-28-2022 Consent for Procedure/Surgery [id number] .00CD:127 Normal [facility] RAD - MISCon 06-24-2022 RAD - MISC [id number] .00CD:127 Normal [facility] XR ABD FLAT_UPon 06-15-2022 XR ABD FLAT_UP EXAMINATION: XR ABD FLAT_UP HISTORY: Left lower quadrant pain COMPARISON: No relevant comparison available. FINDINGS: BOWEL GAS PATTERN: Non-obstructed. No abnormal dilation or suspicious fluid levels. Moderate-large stool burden. FREE AIR: None. CALCIFICATIONS: None significant. BONES: Mechanical fusion of L5-S1. OTHER: Negative. IMPRESSION: 1. No bowel obstruction or suspicious abdominal findings. Electronically authenticated by: SUELLEN MAYO Date: 2022-06-15 17:03 Normal [facility] CBC AUTO DIFFon 06-07-2022 BASO # 0.1 103/ul Normal 0.0-0.1 [facility] Comment on above: Performed By: #### P TT, PT #### [facility] [address] [address] [address] Marcell Luque Basophils/100 WBC (Bld) 0.6 % Normal 0.2-2.0 [facility] Comment on above: Performed By: #### P TT, PT #### [facility] [address] [address] [address] Marcell Luque EO # 0.3 103/ul Normal 0.0-0.7 [facility] Comment on above: Performed By: #### P TT, PT #### [facility] [address] [address] [address] Marcell Luque Eosinophils/100 WBC (Bld) 3.3 % Normal 0.9-7.0 [facility] Comment on above: Performed By: #### P TT, PT #### [facility] [address] [place] [address] Dr. Marcell Luque Erythrocyte distribution width (RBC) [Ratio] 13.9 % Normal 11.0-15.0 [facility] Comment on above: Performed By: #### P TT, PT #### [facility] [address] [place] [address] Dr. Marcell Luque Hematocrit (Bld) [Volume fraction] 39.3 % Critically low 42.0-54.0 [facility] Comment on above: Performed By: #### P TT, PT #### [facility] [address] [place] [address] Dr. Marcell Luque Hemoglobin (Bld) [Mass/Vol] 12.6 g/dL Critically low 14.0-18.0 [facility] Comment on above: Performed By: #### P TT, PT #### [facility] [address] [place] [address] Dr. Marcell Luque IG # 0.02 10e3/ul Normal 0.00-0.03 [facility] Comment on above: Performed By: #### P TT, PT #### [facility] [address] [place] [address] Dr. Marcell Luque IG % 0.2 % Normal 0.0-0.5 [facility] Comment on above: Performed By: #### P TT, PT #### [facility] [address] [place] [address] Dr. Marcell Luque LYMPH # 2.4 103/ul Normal 1.2-3.8 [facility] Comment on above: Performed By: #### P TT, PT #### [facility] [address] [place] [address] Dr. Marcell Luque Lymphocytes/100 WBC (Bld) 29.6 % Normal 20.5-60.0 [facility] Comment on above: Performed By: #### P TT, PT #### [facility] [address] [place] [address] Dr. Marcell Luque MANUAL DIFF REQ NO Normal [facility] Comment on above: Performed By: #### P TT, PT #### [facility] [address] [address] [address] Marcell Luque MCH (RBC) [Entitic mass] 27.9 pg Normal 25.9-34.0 [facility] Comment on above: Performed By: #### P TT, PT #### [facility] [address] [place] [address] Dr. Marcell Luque MCHC (RBC) [Mass/Vol] 32.1 g/dL Normal 29.9-35.2 [facility] Comment on above: Performed By: #### P TT, PT #### [facility] [address] [place] [address] Dr. Marcell Luque MCV (RBC) [Entitic vol] 87.1 fL Normal 80.0-94.0 [facility] Comment on above: Performed By: #### P TT, PT #### [facility] [address] [place] [address] Dr. Marcell Luque MONO # 0.9 103/ul Critically high 0.3-0.8 [facility] Comment on above: Performed By: #### P TT, PT #### [facility] [address] [place] [address] Dr. Marcell Luque Monocytes/100 WBC (Bld) 10.7 % Normal 1.7-12.0 [facility] Comment on above: Performed By: #### P TT, PT #### [facility] [address] [place] [address] Dr. Marcell Luque NEUT # 4.5 103/ul Normal 1.4-6.5 [facility] Comment on above: Performed By: #### P TT, PT #### [facility] [address] [place] [address] Dr. Marcell Luque Neutrophils/100 WBC (Bld) 55.6 % Normal 43.0-75.0 [facility] Comment on above: Performed By: #### P TT, PT #### [facility] [address] [place] [address] Dr. Marcell Luque Platelet mean volume (Bld) [Entitic vol] 10.7 fL Normal 9.5-13.5 [facility] Comment on above: Performed By: #### P TT, PT #### [facility] [address] [address] [address] Marcell Luque PLT 155 103/ul Normal 150-450 [facility] Comment on above: Performed By: #### P TT, PT #### [facility] [address] [address] [address] Marcell Luque RBC 4.51 106/ul Critically low 4.70-6.10 [facility] Comment on above: Performed By: #### P TT, PT #### [facility] [address] [address] [address] Marcell Luque WBC 8.1 103/ul Normal 4.0-11.0 [facility] Comment on above: Performed By: #### P TT, PT #### [facility] [address] [place] [address] Dr. Marcell Luque Covid-19 PCR ([facility])on 05-22 SARS-CoV-2 (COVID-19) RNA NISHANT+probe Ql (Unsp spec) Not detected Normal NOT DETECTED [facility] Comment on above: Result Comment: When diagnostic testing is negative, the possibility of a false negative should be considered in the context of a patient's recent exposures and the presence of clinical signs and symptoms consistent with SARS-CoV-2. This test is not yet approved or cleared by the [place] FDA. When there are no FDA-approved or cleared tests available, and other criteria are met, FDA can make tests available under an emergency access mechanism called an Emergency Use Authorization (EUA). The EUA for this test is supported by the Council of Health and Human Service's declaration that circumstances exist to justify the emergency use of in vitro diagnostics for the detection and/or diagnosis of the virus that causes COVID-19. This EUA will remain in effect for the duration of the COVID-19 declaration justifying emergency of IVDs, unless it is terminated or revoked by the FDA (after which the test may no longer be used). Performed By: #### P TT, PT #### [facility] [address] [place] [address] Dr. Marcell Luque LACTATE/LACTIC ACIDon 2021 Lactate [Moles/Vol] 1.4 mmol/L Normal 0.4-1.9 [facility] Comment on above: Performed By: #### L ACT #### [facility] [address] [address] [address] Marcell Luque PROF CHEM 8 (BAS METB)on Anion gap [Moles/Vol] 8.7 mmol/L Normal [facility] Comment on above: Performed By: #### B MP #### [facility] [address] [address] [address] Marcell Luque Calcium [Mass/Vol] 8.7 mg/dL Normal 8.5-10.1 [facility] Comment on above: Performed By: #### B MP #### [facility] [address] [address] [address] Marcell Luque Chloride [Moles/Vol] 101 mmol/L Normal 98-107 [facility] Comment on above: Performed By: #### B MP #### [facility] [address] [address] [address] Marcell Luque CO2 [Moles/Vol] 29.8 mmol/L Normal 21.0-32.0 [facility] Comment on above: Performed By: #### B MP #### [facility] [address] [address] [address] Marcell Luque Creatinine [Mass/Vol] 1.12 mg/dL Normal 0.70-1.30 [facility] Comment on above: Performed By: #### B MP #### [facility] [address] [address] [address] Marcell Luque EGFR-AF GIBRALTARIAN >60 Normal >=60 [facility] Comment on above: Performed By: #### B MP #### [facility] [address] [address] [address] Marcell Luque EGFR-NON AF GIBRALTARIAN >60 Normal >=60 [facility] Comment on above: Performed By: #### B MP #### [facility] [address] [address] [address] Marcell Luque Glucose [Mass/Vol] 173 mg/dL Critically high 74-106 [facility] Comment on above: Performed By: #### B MP #### [facility] [address] [address] [address] Marcell Luque Potassium [Moles/Vol] 3.5 mmol/L Normal 3.5-5.1 [facility] Comment on above: Performed By: #### B MP #### [facility] [address] [address] [address] Marcell Luque Sodium [Moles/Vol] 136 mmol/L Normal 136-145 [facility] Comment on above: Performed By: #### B MP #### [facility] [address] [address] [address] Marcell Luque Urea nitrogen [Mass/Vol] 18.0 mg/dL Normal 7.0-18.0 [facility] Comment on above: Performed By: #### B MP #### [facility] [address] [address] [address] Marcell Luque Urea nitrogen/Creatinine [Mass ratio] 16.1 mg/mg Normal [facility] Comment on above: Performed By: #### B MP #### [facility] [address] [address] [address] Marcell Luque TROPONIN, HIGH SENSITIVITYon 06-07-2022 HSTROP 84.7 pg/mL Critically high 4.0-76.1 [facility] Comment on above: Result Comment: CUT- OFF POINTS HAVE BEEN ESTABLISHED BASED ON THE FOURTH UNIVERSAL DEFINITIONS OF MYOCARDIAL INFARCTION. THE UPPER REFERENCE LIMIT (URL) OF TROPONIN, DEFINED THE 99TH PERCENTILE OF cTnI DISTRIBUTION IN A REFERENCE POPULATION, HAS BEEN CONFIRMED THE DECISION THRESHOLD FOR [place] DIAGNOSIS. Performed By: #### P TT, PT #### [facility] [address] [address] [address] Marcell Luque XR CHEST 1 Von 06-07-2022 XR CHEST 1 V XR CHEST 1 V 06/06/2022 9:32 PM EDT CLINICAL INDICATION: Cough COMPARISON: 06/24/2021 TECHNIQUE: Portable semiupright AP view of the chest. FINDINGS: A loop recorder is noted. The cardiomediastinal silhouette and pulmonary vasculature are within normal limits. Patchy bibasilar airspace suggestive of atelectasis. No focal parenchymal opacities concerning for consolidation. No pneumothorax or pleural effusion. No displaced rib fractures. Osseous structures demonstrate degenerative changes. Soft tissues are grossly normal. IMPRESSION: No acute cardiopulmonary abnormality. Electronically authenticated by: VALERIE ERWIN Date: 2022-06-06 22:17 Normal [facility] AMMONIAon 06-06-2022 Ammonia (P) [Moles/Vol] 13 umol/L Normal 11-32 [facility] Comment on above: Performed By: #### A MM #### [facility] [address] [place] [address] Dr. Marcell Luque CBC AUTO DIFFon 06-06-2022 BASO # 0.1 103/ul Normal 0.0-0.1 [facility] Comment on above: Performed By: #### P TT, PT #### [facility] [address] [place] [address] Dr. Marcell Luque Basophils/100 WBC (Bld) 0.7 % Normal 0.2-2.0 [facility] Comment on above: Performed By: #### P TT, PT #### [facility] [address] [place] [address] Dr. Marcell Luque EO # 0.3 103/ul Normal 0.0-0.7 [facility] Comment on above: Performed By: #### P TT, PT #### [facility] [address] [place] [address] Dr. Marcell Luque Eosinophils/100 WBC (Bld) 4.0 % Normal 0.9-7.0 [facility] Comment on above: Performed By: #### P TT, PT #### [facility] [address] [place] [address] Dr. Marcell Luque Erythrocyte distribution width (RBC) [Ratio] 13.8 % Normal 11.0-15.0 [facility] Comment on above: Performed By: #### P TT, PT #### [facility] [address] [place] [address] Dr. Marcell Luque Hematocrit (Bld) [Volume fraction] 44.4 % Normal 42.0-54.0 [facility] Comment on above: Performed By: #### P TT, PT #### [facility] [address] [place] [address] Dr. Marcell Luque Hemoglobin (Bld) [Mass/Vol] 14.4 g/dL Normal 14.0-18.0 [facility] Comment on above: Performed By: #### P TT, PT #### [facility] [address] [place] [address] Dr. Marcell Luque IG # 0.02 10e3/ul Normal 0.00-0.03 [facility] Comment on above: Performed By: #### P TT, PT #### [facility] [address] [place] [address] Dr. Marcell Luque IG % 0.2 % Normal 0.0-0.5 [facility] Comment on above: Performed By: #### P TT, PT #### [facility] [address] [place] [address] Dr. Marcell Luque LYMPH # 2.9 103/ul Normal 1.2-3.8 [facility] Comment on above: Performed By: #### P TT, PT #### [facility] [address] [place] [address] Dr. Marcell Luque Lymphocytes/100 WBC (Bld) 35.4 % Normal 20.5-60.0 [facility] Comment on above: Performed By: #### P TT, PT #### [facility] [address] [place] [address] Dr. Marcell Luque MANUAL DIFF REQ NO Normal [facility] Comment on above: Performed By: #### P TT, PT #### [facility] [address] [place] [address] Dr. Marcell Luque MCH (RBC) [Entitic mass] 28.1 pg Normal 25.9-34.0 [facility] Comment on above: Performed By: #### P TT, PT #### [facility] [address] [place] [address] Dr. Marcell Luque MCHC (RBC) [Mass/Vol] 32.4 g/dL Normal 29.9-35.2 [facility] Comment on above: Performed By: #### P TT, PT #### [facility] [address] [place] [address] Dr. Marcell Luque MCV (RBC) [Entitic vol] 86.7 fL Normal 80.0-94.0 [facility] Comment on above: Performed By: #### P TT, PT #### [facility] Laboratory [address] [place] [address] Dr. Marcell Luque MONO # 0.7 103/ul Normal 0.3-0.8 [facility] Comment on above: Performed By: #### P TT, PT #### [facility] Laboratory [address] [place] [address] Dr. Marcell Luque Monocytes/100 WBC (Bld) 8.2 % Normal 1.7-12.0 [facility] Comment on above: Performed By: #### P TT, PT #### [facility] Laboratory [address] [place] [address] Dr. Marcell Luque NEUT # 4.2 103/ul Normal 1.4-6.5 [facility] Comment on above: Performed By: #### P TT, PT #### [facility] Laboratory [address] [place] [address] Dr. Marcell Luque Neutrophils/100 WBC (Bld) 51.5 % Normal 43.0-75.0 [facility] Comment on above: Performed By: #### P TT, PT #### [facility] Laboratory [address] [place] [address] Dr. Marcell Luque Platelet mean volume (Bld) [Entitic vol] 11.0 fL Normal 9.5-13.5 [facility] Comment on above: Performed By: #### P TT, PT #### [facility] Laboratory [address] [place] [address] Dr. Marcell Luque PLT 183 103/ul Normal 150-450 [facility] Comment on above: Performed By: #### P TT, PT #### [facility] Laboratory [address] [place], [place] [address] Dr. Marcell Luque RBC 5.12 106/ul Normal 4.70-6.10 [facility] Comment on above: Performed By: #### P TT, PT #### [facility] Laboratory [address] [place], [place] [address] Dr. Marcell Luque WBC 8.2 103/ul Normal 4.0-11.0 [facility] Comment on above: Performed By: #### P TT, PT #### [facility] Laboratory [address] [place], [place] [address] HEAD WO CONon 06-06-2022 CT HEAD WO CON INDICATION: 66 years old; Male. While drinking with family members and became unresponsive for 5 minutes. Patient is now at baseline. History of syncope... TECHNIQUE: CT Head (ax/cor/sag reformats). Ionizing radiation dose reduced via iterative reconstruction/FBP blend and body size kV/mA adjustment. Comparison: Head CT dated 06/30/2020. FINDINGS: POSTOPERATIVE CHANGES: None. BRAIN PARENCHYMA: There is old cortical infarction with encephalomalacia and gliosis in the left parietal region. Old lacunar infarction is seen in the head of the right caudate. Old gangliocapsular infarct on the left. Compensatory enlargement of the frontal horns is seen. Old lacunar infarctions in the lentiform nucleus on the right. Old lacunar infarction in the body the caudate on the right. No intraparenchymal or extra-axial hemorrhage is seen. Patchy low-density in the white matter without mass effect consistent with small vessel ischemia. VENTRICLES/EXTRA-AXIA L SPACES: Widened, consistent with atrophy. SINUSES/MASTOIDS: Mucoperiosteal thickening and secretions are present within the frontal sinus on the left. A periosteal thickening is present in the ethmoid sinuses, sphenoid sinuses, and visualized portion of the right maxillary sinus. Opacification of ethmoid air cells on the left. Opacification of individual mastoid air cells on the left. A lesser degree of opacification as seen on the right. Middle ears are clear bilaterally. External auditory canals are filled with cerumen. MSK: No calvarial fracture is seen. Findings consistent with chronic subcutaneous scarring overlying the parieto-occipital region on the left. OTHER: No hyperdense intraluminal thrombus is seen. Basilar calcification. IMPRESSION: 1. Multiple areas of chronic infarction. 2. Small vessel ischemic change. 3. Atrophy. 4. Vascular calcification. 5. Pansinus thickening with opacification of individual mastoid air cells. Electronically authenticated by: CURTIS WILSON Date: 2022-06-06 21:56 Normal [facility] CULTURE BLOODon 06-06-2022 Microscopic examination of blood, culture Culture Observations: NO GROWTH AT 5 DAYS. Normal [facility] Comment on above: Performed By: #### P TT, PT #### [facility] Laboratory [address] [place] [address] Dr. Marcell Luque Microscopic examination of blood, culture Culture Observations: NO GROWTH AT 5 DAYS. Normal [facility] Comment on above: Performed By: #### P TT, PT #### [facility] Laboratory [address] [place] [address] Dr. Marcell Luque ETHANOL (BLD ALC)on 06-06-20 22 ALC NOTE NOTE: 80 mg/dl is th e legal limit for a blood alcohol level Normal [facility] Comment on above: Performed By: #### P TT, PT #### [facility] Laboratory [address] [place] [address] Dr. Marcell Luque Ethanol [Mass/Vol] mg/dL Normal [facility] Comment on above: Performed By: #### P TT, PT #### [facility] Laboratory [address] [place] [address] Dr. Marcell Luque LACTATE/LACTIC ACIDon 2021 Lactate [Moles/Vol] 2.9 mmol/L Critically high 0.4-1.9 [facility] Comment on above: Performed By: #### P TT, PT #### [facility] Laboratory [address] [place] [address] Dr. Marcell Luque PROF 14(COMP METB)on 022 Albumin [Mass/Vol] 4.3 g/dL Normal 3.4-5.0 [facility] Comment on above: Performed By: #### P TT, PT #### [facility] Laboratory [address] [place] [address] Dr. Marcell Luque Albumin/Globulin [Mass ratio] 1.1 {ratio} Normal [facility] Comment on above: Performed By: #### P TT, PT #### [facility] Laboratory [address] [place] [address] Dr. Marcell Luque ALP [Catalytic activity/Vol] 91 U/L Normal 46-116 [facility] Comment on above: Performed By: #### P TT, PT #### [facility] Laboratory [address] [place] [address] [address] Marcell Luque ALT [Catalytic activity/Vol] 35 U/L Normal 16-63 [facility] Comment on above: Performed By: #### P TT, PT #### [facility] Laboratory [address] [place] [address] Dr. Marcell Luque Anion gap [Moles/Vol] 11.7 mmol/L Normal [facility] Comment on above: Performed By: #### P TT, PT #### [facility] Laboratory [address] [place] [address] Dr. Marcell Luque AST [Catalytic activity/Vol] 15 U/L Normal 15-37 [facility] Comment on above: Performed By: #### P TT, PT #### [facility] Laboratory [address] [place] [address] Dr. Marcell Luque Bilirubin [Mass/Vol] 0.4 mg/dL Normal 0.2-1.0 [facility] Comment on above: Performed By: #### P TT, PT #### [facility] Laboratory [address] [place] [address] Dr. Marcell Luque Calcium [Mass/Vol] 9.8 mg/dL Normal 8.5-10.1 [facility] Comment on above: Performed By: #### P TT, PT #### [facility] [address] [place] [address] Dr. Marcell Luque Chloride [Moles/Vol] 97 mmol/L Critically low 98-107 [facility] Comment on above: Performed By: #### P TT, PT #### [facility] [address] [address] [address] Marcell Luque CO2 [Moles/Vol] 30.8 mmol/L Normal 21.0-32.0 [facility] Comment on above: Performed By: #### P TT, PT #### [facility] Laboratory [address] [place] [address] Dr. Marcell Luque Creatinine [Mass/Vol] 1.45 mg/dL Critically high 0.70-1.30 [facility] Comment on above: Performed By: #### P TT, PT #### [facility] [address] [place] [address] Dr. Marcell Luque EGFR-AF GIBRALTARIAN 59 mL/min/1.73m2 Critically low >=60 [facility] Comment on above: Performed By: #### P TT, PT #### [facility] [address] [place] [address] Dr. Marcell Luque EGFR-NON AF GIBRALTARIAN 49 mL/min/1.73m2 Critically low >=60 [facility] Comment on above: Performed By: #### P TT, PT #### [facility] [address] [place] [address] Dr. Marcell Luque Globulin (S) [Mass/Vol] 3.9 g/dL Normal [facility] Comment on above: Performed By: #### P TT, PT #### [facility] [address] [place] [address] Dr. Marcell Luque Glucose [Mass/Vol] 204 mg/dL Critically high 74-106 [facility] Comment on above: Performed By: #### P TT, PT #### [facility] Laboratory [address] [place] [address] Dr. Marcell Luque Potassium [Moles/Vol] 3.5 mmol/L Normal 3.5-5.1 [facility] Comment on above: Performed By: #### P TT, PT #### [facility] Laboratory [address] [place] [address] Dr. Marcell Luque Protein [Mass/Vol] 8.2 g/dL Normal 6.4-8.2 [facility] Comment on above: Performed By: #### P TT, PT #### [facility] [address] [place] [address] Dr. Marcell Luque Sodium [Moles/Vol] 136 mmol/L Normal 136-145 [facility] Comment on above: Performed By: #### P TT, PT #### [facility] [address] [place] [address] Dr. Marcell Luque Urea nitrogen [Mass/Vol] 20.0 mg/dL Critically high 7.0-18.0 [facility] Comment on above: Performed By: #### P TT, PT #### [facility] [address] [place] [address] Dr. Marcell Luque Urea nitrogen/Creatinine [Mass ratio] 13.8 mg/mg Normal [facility] Comment on above: Performed By: #### P TT, PT #### [facility] [address] [place] [address] Dr. Marcell Luque PROTIMEon 06-06-2022 INR Coag (PPP) [Relative time] 1.02 {INR} Normal [facility] Comment on above: Performed By: #### P TT, PT #### [facility] [address] [place] [address] Dr. Marcell Luque INR GUIDELINES SEE BELOW Normal [facility] Comment on above: Result Comment: DANICA RED INR: 2.0 - 3.0 CONDITIONS NOT LISTED BELOW 2.5 - 3.5 FOR PROSTHETIC HEART VALVE REPLACEMENT 2.5 - 3.5 RECURRENT THROMBOSIS Performed By: #### P TT, PT #### [facility] [address] [place] [address] Dr. Marcell Luque PT Coag (PPP) [Time] 11.0 s Normal 9.0-11.6 [facility] Comment on above: Performed By: #### P TT, PT #### [facility] [address] [place] [address] Dr. Marcell Luque PTTon 06-06-2022 aPTT Coag (Bld) [Time] 25.9 s Normal 22.3-36.2 [facility] Comment on above: Performed By: #### P TT, PT #### [facility] [address] [place] [address] Dr. Marcell Luque TROPONIN, HIGH SENSITIVITYon 06-06-2022 HSTROP 92.4 pg/mL Critically high 4.0-76.1 [facility] Comment on above: Result Comment: CUT- OFF POINTS HAVE BEEN ESTABLISHED BASED ON THE FOURTH UNIVERSAL DEFINITIONS OF MYOCARDIAL INFARCTION. THE UPPER REFERENCE LIMIT (URL) OF TROPONIN, DEFINED THE 99TH PERCENTILE OF cTnI DISTRIBUTION IN A REFERENCE POPULATION, HAS BEEN CONFIRMED THE DECISION THRESHOLD FOR TN DIAGNOSIS. Performed By: #### P TT, PT #### [facility] [address] [place] [address] [address] Marcell Luque Physician Referralon 022 Physician Referral [id number]:127 Normal [facility] Ambulatory Visit Summaryon 1 Ambulatory Visit Summary EUNICE MARTE :1955 Visit Date:06/02/2022 Ambulatory Visit Instructions Your Diagnosis Elevated PSA BPH with urinary obstruction Erectile dysfunction Tests Performed Urnls Dip Stick Auto w/o Microscopy POC 14942 Your Care Team Attending Physician - Dewey COTTO, Milvia Lucia Primary Care Physician - ADILSON SALAZAR MD This Is Your Medications List mirabegron (Myrbetriq 50 mg oral tablet, extended release) Contact prescribing physician if questions or concerns amlodipine (amLODIPine 10 mg Tab) aspirin (aspirin 81 mg Oral EC Tab) atorvastatin (atorvastatin 80 mg Tab) cholecalciferol (cholecalciferol 2000 intl units oral tablet (Vitamin D3)) glipiZIDE (glipiZIDE 10 mg ER Tab) hydrochlorothiazide-l isinopril (hydrochlorothiazide- lisinopril 12.5 mg-20 mg Tab) insulin lispro-insulin lispro protamine (Humalog Mix 50/50 KwikPen) metformin (metformin 500 mg ER Tab) montelukast (montelukast 10 mg Tab) pioglitazone (pioglitazone 30 mg Tab) Procedures Performed Transrectal biopsy of prostate using ultrasound (US) guidance (09/08/2020), Knee replacement, Procedure on back. Discharge Vitals Heart Rate (Peripheral) 72 Blood Pressure 140/86 Height 183 cm Height 72 in Weight 110.3 kg Weight 242.66 lb BMI 32.94 What to do next Scheduled Follow-Up Appointments Tuesday 10:30 AM EST With: Ciro Blanco MD, Asim Singleton Where: [facility] Sujey Normal [facility] Patient Educationon 06-02-20 Patient Education Urology Erectile Dysfunction Erectile dysfunction (ED) is the inability to get or keep an erection in order to have sexual intercourse. Erectile dysfunction may include: ? Inability to get an erection. ? Lack of enough hardness of the erection to allow penetration. ? Loss of the erection before sex is finished. What are the causes? This condition may be caused by: ? Certain medicines, such as: ? Pain relievers. ? Antihistamines. ? Antidepressants. ? Blood pressure medicines. ? Water pills (diuretics). ? Ulcer medicines. ? Muscle relaxants. ? Drugs. ? Excessive drinking. ? Psychological causes, such as: ? Anxiety. ? Depression. ? Sadness. ? Exhaustion. ? Performance fear. ? Stress. ? Physical causes, such as: ? Artery problems. This may include diabetes, smoking, liver disease, or atherosclerosis. ? High blood pressure. ? Hormonal problems, such as low testosterone. ? Obesity. ? Nerve problems. This may include back or pelvic injuries, diabetes mellitus, multiple sclerosis, or Parkinson disease. What are the signs or symptoms? Symptoms of this condition include: ? Inability to get an erection. ? Lack of enough hardness of the erection to allow penetration. ? Loss of the erection before sex is finished. ? Normal erections at some times, but with frequent unsatisfactory episodes. ? Low sexual satisfaction in either partner due to erection problems. ? A curved penis occurring with erection. The curve may cause pain or the penis may be too curved to allow for intercourse. ? Never having nighttime erections. How is this diagnosed? This condition is often diagnosed by: ? Performing a physical exam to find other diseases or specific problems with the penis. ? Asking you detailed questions about the problem. ? Performing blood tests to check for diabetes mellitus or to measure hormone levels. ? Performing other tests to check for underlying health conditions. ? Performing an ultrasound exam to check for scarring. ? Performing a test to check blood flow to the penis. ? Doing a sleep study at home to measure nighttime erections. How is this treated? This condition may be treated by: ? Medicine taken by mouth to help you achieve an erection (oral medicine). ? Hormone replacement therapy to replace low testosterone levels. ? Medicine that is injected into the penis. Your health care provider may instruct you how to give yourself these injections at home. ? Vacuum pump. This is a pump with a ring on it. The pump and ring are placed on the penis and used to create pressure that helps the penis become erect. ? Penile implant surgery. In this procedure, you may receive: ? An inflatable implant. This consists of cylinders, a pump, and a reservoir. The cylinders can be inflated with a fluid that helps to create an erection, and they can be deflated after intercourse. ? A semi-rigid implant. This consists of two silicone rubber rods. The rods provide some rigidity. They are also flexible, so the penis can both curve downward in its normal position and become straight for sexual intercourse. ? Blood vessel surgery, to improve blood flow to the penis. During this procedure, a blood vessel from a different part of the body is placed into the penis to allow blood to flow around (bypass) damaged or blocked blood vessels. ? Lifestyle changes, such as exercising more, losing weight, and quitting smoking. Follow these instructions at home: Medicines ? Take [id number]-rjj-zwcaepz and prescription medicines only as told by your health care provider. Do not increase the dosage without first discussing it with your health care provider. ? If you are using self-injections, perform injections as directed by your health care provider. Make sure to avoid any veins that are on the surface of the penis. After giving an injection, apply pressure to the injection site for 5 minutes. General instructions ? Exercise regularly, as directed by your health care provider. Work with your health care provider to lose weight, if needed. ? Do not use any products that contain nicotine or tobacco, such as cigarettes and e-cigarettes. If you need help quitting, ask your health care provider. ? Before using a vacuum pump, read the instructions that come with the pump and discuss any questions with your health care provider. ? Keep all follow-up visits as told by your health care provider. This is important. Contact a health care provider if: ? You feel nauseous. ? You vomit. Get help right away if: ? You are taking oral or injectable medicines and you have an erection that lasts longer than 4 hours. If your health care provider is unavailable, go to the nearest emergency room for evaluation. An erection that lasts much longer than 4 hours can result in permanent damage to your penis. ? You have severe pain in your groin or abdomen. ? You develop redness or severe swelling of your (more content not included)... Normal [facility] Provider Letteron 06-02-2022 Provider Letter June 02, 2022 EUNICE MARTE [address] [place] [address] LYDIAEUNICE 1955 To Whom It May Concern, Please excuse above patient from work. Date of Appointment: From: 06/02/2022 To: 06/02/2022 May Return to Work On:06/02/2022 Restrictions: none Comments: Shayy was with her Eunice for his appointment at our office today, any questions please call our office Sincerely, [facility] [address], [place] [address] Normal [facility] RAD - MRI Reporton 2 RAD - MRI Report [id number] .[id number]:127 Normal [facility] Urology Office/Clinic Noteon 06-02-2022 Urology Office/Clinic Note Chief Complaint Patient in office for f/u to MRI of the prostate HPI Staff Patient in office for f/u to MRI of the Prostate done on 05/26/22 @ [facility] [place]. MRI shows a focal area of T2 hypointensity of the anterior aspect of the left peripheral zone of the mid gland measuring approximately 8x8mm, abnormal enhancement is noted as well. T1/T2 hypointense lesion is seen involving the right ischial tuberosity. Patient denies any changes in symptoms. Dysuria: denies Incomplete bladder emptying: denies Hematuria: denies Frequency: denies Urgency: admits, moderate Nocturia: admits, 4 x a night Stream: steady Leaking: admits, intermittent Post void dripping: denies Wearing pads/ Depends: denies Urge incontinence: denies Stress incontinence: denies Incontinence without Sensory Awareness: admits Abdominal pain: denies Flank pain: denies Sexual complaints: _ History of Present Illness I have reviewed and verified the staff HPI to be accurate for this encounter. Review of Systems ROS - Provider Constitutional: denies weight loss, denies hot flashes. Eyes: denies eye problems. Gastrointestinal: denies nausea, denies vomiting. Cardiovascular: denies chest pain or angina. Integumentary: no dryness Musculoskeletal: denies musculoskeletal symptoms. ENMT: denies otolaryngeal symptoms. Respiratory: no shortness of breath. Heme/Lymph: denies easy bleeding tendency, denies easy bruising tendency. Psychiatric: no confusion, no anxiety. Genitourinary: see HPI Physical Exam Vitals & Measurements HR: 72(Peripheral) BP: 140/86 HT: 72 in HT: 183 cm WT: 110.3 kg WT: 242.66 lb BMI: 32.94 General Appearance: alert, no distress, well nourished, well developed male. Genitourinary: Flank Pain: none. Bladder: nonpalpable. Assessment/Plan 1. Elevated PSA (R97.20: Elevated prostate specific antigen [PSA]) PSA 01/26/2022 - 11.09 10/03/2021 - 6.8 and 5.7% free 04/06/21 - 7.2, 5.3% free 09/08/2020 -6 core TRUS bx [address] Dr Tanner benign, 34 mL volume MRI done 05/26/2022 shows a focal area of T2 hypointensity of the anterior aspect of the left peripheral zone of the mid gland measuring approximately 8x8mm, abnormal enhancement is noted as well. T1/T2 hypointense lesion is seen involving the right ischial tuberosity. PI-RADS 4. Volume 48mL. We discussed risks of MRI fusion prostate biopsy approaches including transrectal and transperineal. Risks of the procedure were discussed to include but not be limited to bleeding, pain, infection, difficulties with urination, injury to the urethra, prostate or bladder or surrounding tissues, injury from positioning on the table, swelling and bruising of the skin, and need for further procedures. -Will schedule MRI Fusion transperineal Biopsy of the prostate with BHUPINDER (pt refused awake). The procedural risks, benefits, details, and treatment alternatives have been discussed with the patient. These include minimal to severe bleeding, infection, blood in the semen, inability to urinate, and severe infection requiring hospitalization and IV antibiotics, among others. Full informed consent has been obtained. Will order Mac anesthesia. 2. BPH with urinary obstruction (N40.1: Benign prostatic hyperplasia with lower urinary tract symptoms) Myrbetriq 50mg qd. Frequency and urgency improved. PVR 122mL -Continue Myrbetriq qd. 3. Erectile dysfunction (N52.9: Male erectile dysfunction, unspecified) THANH(1). Pt not currently on any medications at this time. Deferred further tx/workup at this time Follow-up With When Contact Information Dewey COTTO, Milvia Lucia, URL, [facility] [address], [place] [address] [phone] Additional Instructions: Patient Education Erectile Dysfunction I, Paty Maher , personally scribed for Dr. Palomo on 06/02/2022 10:05:22. . Documentation recorded by the scribe, Paty Maher, accurately reflects the services(s) I performed and decisions made by me. Authenticated by Dr. Palomo on 06/02/2022 12:00:22. Problem List/Past Medical History Ongoing BPH with elevated PSA BPH with urinary obstruction Depression Elevated PSA Erectile dysfunction Hyperlipemia Hypertension Incontinence of urine Nocturia Stroke Urgency of urination Historical No qualifying data Procedure/Surgical History Transrectal biopsy of prostate using ultrasound (US) guidance (09/08/2020), Knee replacement, Procedure on back. Medications amLODIPine 10 mg Tab, Oral, Daily aspirin 81 mg Oral EC Tab, Oral, Daily atorvastatin 80 mg Tab, Oral, Daily cholecalciferol 2000 intl units oral tablet (Vitamin D3), Oral, Daily glipiZIDE 10 mg ER Tab, Oral, Daily Humalog Mix 50/50 KwikPen, SubCutaneous, BIDAC hydrochlorothiazide-l isinopril 12.5 mg-20 mg Tab, Oral, Daily metformin 500 mg ER Tab, Oral, Daily montelukast 10 mg Tab, Oral, Daily Myrbetriq 50 mg oral tablet, extended release, 50 mg= 1 tab(s), Oral, Daily, 6 refi (more content not included)... Normal [facility] Comment on above: Result Comment: Elec tronically Signed By: Dewey COTTO, Milvia Lucia\.br\Date and Time Signed: 06/02/22 12:00 EDT\.br\Electronically Co-Signed By: Paty Maher MA\.br\Date and Time Co-Signed: 06/02/22 10:08 EDT MR prostate wo/w conon 05-30 MR prostate wo/w con [facility] [address] [place] [address] MRI Report Signed Patient: Eunice Marte MR#: [id number] : 1955 Acct:[id number] Age/Sex: 66 / M ADM Date: 05/26/22 Loc: MR Room: Type: [facility] Attending Dr: Milvia Palomo MD Copies to: Milvia Palomo MD Ordering Provider: Milvia Palomo MD Date of Service: 05/26/22 MR/MR prostate wo/w con: R97.20 EXAMINATION: MR prostate wo/w con HISTORY: Elevated PSA COMPARISON: NONE TECHNIQUE: Multiparametric imaging of the prostate gland was performed with IV contrast. FINDINGS: Prostate Dimensions: 4.9 x 3.9 x 4.8 cm Prostate Volume: 48 mL Peripheral Zone: Heterogenous inT2 signal suggestive of prior prostatitis. A focal area of T2 hypointensity identified involving the anterior aspect of the left peripheral zone at the level of the mid gland with associated restricted diffusion and low ADC value measuring approximately 8 x 8 mm. There is also abnormal enhancement. Please see series 4 image 18, series 650 image 16 and series 600 image 16. Central/Transitional Zone: BPH changes. Seminal Vesicles: Unremarkable Neurovascular bundles: Unremarkable. Lymphadenopathy: No evidence of lymphadenopathy. Bladder: No focal lesion. Bowel: Diverticulosis. Peritoneal Cavity: No free fluid. Bones: Suboptimal evaluation due to blooming artifact from presumed hardware involving the lumbar spine. T1/T2 hypointense lesion is seen involving the right ischial tuberosity best seen on series 2 image 11, series 4 image 5. MR/MR prostate wo/w con IMPRESSION: 1. A focal area of T2 hypointensity identified involving the anterior aspect of the left peripheral zone at the level of the mid gland with associated restricted diffusion and low ADC value measuring approximately 8 x 8 mm. There is also abnormal enhancement. Please see series 4 image 18, series 650 image 16 and series 600 image 16. PI-RADS 4. Targeting on biopsy is recommended. 2. T1/T2 hypointense lesion is seen involving the right ischial tuberosity. Given the prostate finding, a metastatic lesion cannot be excluded and correlation with bone scan/CT is suggested. Impression dictated by: Jhonny Sarabia Jr., D.O.05/29/2022 11:01 PM Dictation Location: [place] [address] Transcribed By: [facility] 05/29/222300 Dictated By: Jhonny Sarabia Jr, DO 05/29/222249 Signed By: 05/29/222300 [facility] Creatinine (Bld) [Mass/Vol]O rdered By: Milvia Palomo on 05-26-2022 Creatinine [Mass/Vol] 0.8 mg/dL 0.6-1.3 [facility] Comment on above: ER/ESD physician is notified/shown all ISTAT results.Critical values may be confirmed by laboratory testing ifdeemed necessary by ER attending doctor. ISTAT XRay CREon 05-26-2022 Creatinine [Mass/Vol] 0.8 mg/dL Normal 0.6-1.3 [facility] Comment on above: Result Comment: ER/E SD physician is notified/shown all ISTAT results. Critical values may be confirmed by laboratory testing if deemed necessary by ER attending doctor. Performed By: #### I SCRE #### [facility] [address] [place] [address] Point of Care testing , ISTAT GFR ( > 60 [facility] Comment on above: Result Comment: GFR estimated reference range: According to KDOQI guidelines, <60 ml/min/1.73m2 is sufficient to diagnose a patient with chronic kidney disease. PERFORMED BY: [place] [address] PATHOLOGIST CANARY BREEDER RONY DUMONT M.D. Performed By: #### I SCRE #### [facility] [address] [place] [address] Point of Care testing , ISTAT GFR (Non- Am > 60 [facility] Comment on above: Performed By: #### I SCRE #### [facility] [address] [id number] [facility] Point of Care testing , No Panel InformationOrdered By: Milvia Palomo on 05-26-2022 POC Estimated GFR > 60 [facility] Comment on above: GFR estimated refere nce range: According to KDOQI guidelines, <60 ml/min/1.73m2 is sufficient to diagnose a patient with chronic kidney disease. POC Estimated GFR Non- Amer > 60 [facility] Screenson 04-29-2022 Screens [id number]# 1.00CD:127 Normal [facility] Screens [id number] .00CD:127 Normal [facility] Patient Educationon 04-21-20 22 Patient Education Oncology Prostate Cancer Screening The prostate is a walnut-sized gland that is located below the bladder and in front of the rectum in males. The function of the prostate (prostate gland) is to add fluid to semen during ejaculation. Prostate cancer is the second most common type of cancer in men. A screening test for cancer is a test that is done before cancer symptoms start. Screening can help to identify cancer at an early stage, when the cancer can be treated more easily. The recommended prostate cancer screening test is a blood test called the prostate-specific antigen (PSA) test. PSA is a protein that is made in the prostate. As you age, your prostate naturally produces more PSA. Abnormally high PSA levels may be caused by: ? Prostate cancer. ? An enlarged prostate that is not caused by cancer (benign prostatic hyperplasia, BPH). This condition is very common in older men. ? A prostate gland infection (prostatitis). ? Medicines to assist with hair growth, such as finasteride. Depending on the PSA results, you may need more tests, such as: ? A physical exam to check the size of your prostate gland. ? Blood and imaging tests. ? A procedure to remove tissue samples from your prostate gland for testing (biopsy). Who should have screening? Screening recommendations vary based on age. ? If you are younger than age 40, screening is not recommended. ? If you are age 40?54 and you have no risk factors, screening is not recommended. ? If you are younger than age 55, ask your health care provider if you need screening if you have one of these risk factors: ? Being of -[place]amese descent. ? Having a family history of prostate cancer. ? If you are age 55?69, talk with your health care provider about your need for screening and how often screening should be done. ? If you are older than age 70, screening is not recommended. This is because the risks that screening can cause are greater than the benefits that it may provide (risks outweigh the benefits). If you are at high risk for prostate cancer, your health care provider may recommend that you have screenings more often or start screening at a younger age. You may be at high risk if you: ? Are older than age 55. ? Are -Surinamese. ? Have a father, brother, or uncle who has been diagnosed with prostate cancer. The risk may be higher if your family member's cancer occurred at an early age. What are the benefits of screening? There is a small chance that screening may lower your risk of dying from prostate cancer. The chance is small because prostate cancer is typically a slow-growing cancer, and most men with prostate cancer from a different cause. What are the risks of screening? The main risk of prostate cancer screening is diagnosing and treating prostate cancer that would never have caused any symptoms or problems (overdiagnosis and overtreatment). PSA screening cannot tell you if your PSA is high due to cancer or a different cause. A prostate biopsy is the only procedure to diagnose prostate cancer. Even the results of a biopsy may not tell you if your cancer needs to be treated. Slow-growing prostate cancer may not need any treatment other than monitoring, so diagnosing and treating it may cause unnecessary stress or other side effects. A prostate biopsy may also cause: ? Infection or fever. ? A false negative. This is a result that shows that you do not have prostate cancer when you actually do have prostate cancer. Questions to ask your health care provider ? When should I start prostate cancer screening? ? What is my risk for prostate cancer? ? How often do I need screening? ? What type of screening tests do I need? ? How do I get my test results? ? What do my results mean? ? Do I need treatment? Contact a health care provider if: ? You have difficulty urinating. ? You have pain when you urinate or ejaculate. ? You have blood in your urine or semen. ? You have pain in your back or in the area of your prostate. ? You have trouble getting or maintaining an erection (erectile dysfunction, ED). Summary ? Prostate cancer is a common type of cancer in men. The prostate (prostate gland) is located below the bladder and in front of the rectum. This gland adds fluid to semen during ejaculation. ? Prostate cancer screening may identify cancer at an early stage, when the cancer can be treated more easily. ? The prostate-specific antigen (PSA) test is the recommended screening test for prostate cancer. ? Discuss the risks and benefits of prostate cancer screening with your health care provider. If you are age 70 or older, screening is likely to lead to more risks than benefits (risks outweigh the benefits). This information is not intended to replace advice given to you by your health care provider. Make sure you discuss any questions you have with your health care provider. Document Released: 05/19/2018 Document R (more content not included)... [facility] Provider Letteron 04-21-2022 Provider Letter April 21, 2022 EUNICE MARTE [address] [place] [address] EUNICE MARTE 1955 To Whom It May Concern, Please excuse above patient from work. Date of Illness: for appointment 04/21/2022 May Return to Work On: 04/21/2022 Restrictions: _ Comments: _ Sincerely, [facility] [address], [place] [address] [facility] Urology Office/Clinic Noteon 04-21-2022 Urology Office/Clinic Note Chief Complaint Increase in PSA HPI Staff Eunice is here today for an increase in PSA. Current PSA done on 01/26/22 was 11.09. Previous PSA done on 10/03/21 was 6.8 and 5.7%. Previous DX: BPH with urinary obstruction, elevated PSA, incontinence of urine. S/P Transrectal biopsy of prostate using US guidance done on 09/08/20. IPSS is 5. SHIMS is 1. PVR was 23ml. Dysuria: Denies Incomplete bladder emptying: Denies Hematuria: Denies Frequency: Denies Urgency: Moderate Nocturia: Mild, 4 times Stream: Strong stream, he cannot stop stream once it starts Leaking: yes Post void dripping: yes Wearing pads/ Depends: Denies Urge incontinence: Denies Stress incontinence: Denies Incontinence without Sensory Awareness: yes Abdominal pain: Denies Flank pain: Denies Sexual complaints: Denies History of Present Illness Tests reviewed: reviewed UA, external labs and records I have reviewed the previous health record information and history for this patient from Dr. Tanner I have reviewed and verified the staff HPI to be accurate for this encounter. There have been no associated fever, chills, flank pain, or blood in the urine. Denies any urinary infections since last encounter. Review of Systems PHQ Score Initial Depression Screen Score: 0 ROS - Provider Constitutional: denies weight loss, denies hot flashes. Eyes: denies eye problems. Gastrointestinal: denies nausea, denies vomiting. Cardiovascular: denies chest pain or angina. Integumentary: no dryness Musculoskeletal: mild musculoskeletal symptoms -uses cane for walking assistance, mild peripheral neuropathy ENMT: denies otolaryngeal symptoms. Respiratory: no shortness of breath. Heme/Lymph: denies easy bleeding tendency, denies easy bruising tendency. Psychiatric: no confusion, no anxiety. Genitourinary: see HPI Physical Exam Vitals & Measurements RR: 16 HT: 183.0 cm HT: 183 cm WT: 110.3 kg WT: 110.3 kg BMI: 32.94 General Appearance: alert, no distress, well nourished, well developed male. Genitourinary: Flank Pain: none. Bladder: nonpalpable Assessment/Plan 66 yo AA Male with hx of uncontrolled DM2 and history of elevated PSA followed by Dr Tanner presents for annual followup. 1. Elevated PSA (R97.20: Elevated prostate specific antigen [PSA]) PSA 01/26/2022 - 11.09 10/03/2021 - 6.8 and 5.7% free 04/06/21 - 7.2, 5.3% free 09/08/2020 -6 core TR[address] bx [address] Dr Tanner benign, 34 mL volume Records of pt adamantly refusing BHUPINDER. Importance of exam explained to pt and given significant rise, need to rule out infection or nodule. States he will do it next time after mentally prepared. Thorough explanation of PSA elevation and implications, as well as diagnostic options. -Agreed to MRI prostate, will obtain -BHUPINDER next visit, consider [facility] based on MRI results -Follow up in 3-4 wks to review 2. BPH with urinary obstruction (N40.1: Benign prostatic hyperplasia with lower urinary tract symptoms) IPSS(5) -frequency, urgency PVR 23 ml UA today shows 250 mg/dL pt is a diabetic. Discussed relationship between uncontrolled DM and bladder symptoms. -Start Myrbetriq 50mg qd. Discussed the medication side effects, and the patient will monitor closely for these, as well as for symptom improvement. If severe side effects occur, the medication should be stopped and the office notified. -Timed voids -Counseled thoroughly on DM control 3. Erectile dysfunction (N52.9: Male erectile dysfunction, unspecified) THANH(1). Pt not currently on any medications at this time. Discussed potential etiologies for ED. Not interested in addressing at this time, will revisit pending structural biologist workup Follow-up With When Contact Information Dewey COTTO, Milvia Lucia, URL, URO Additional Instructions: MRI of prostate Patient Education Prostate Cancer Screening I, Lamar Lowry , personally scribed for Dr. Palomo on 04/21/2022 12:13:50. . Documentation recorded by the scribe, Lamar Lowry, accurately reflects the services(s) I performed and decisions made by me. Authenticated by Dr. Palomo on 04/21/2022 17:24:26. Problem List/Past Medical History Ongoing BPH with elevated PSA BPH with urinary obstruction Depression Elevated PSA Erectile dysfunction Hyperlipemia Hypertension Incontinence of urine Nocturia Stroke Urgency of urination Historical No qualifying data Procedure/Surgical History Transrectal biopsy of prostate using ultrasound (US) guidance (09/08/2020), Knee replacement, Procedure on back. Medications amLODIPine 10 mg Tab, Oral, Daily aspirin 81 mg Oral EC Tab, Oral, Daily atorvastatin 80 mg Tab, Oral, Daily cholecalciferol 2000 intl units oral tablet (Vitamin D3), Oral, Daily glipiZIDE 10 mg ER Tab, Oral, Daily Humalog Mix 50/50 KwikPen, SubCutaneous, BIDAC hydrochlorothiazide-l isinopril 12.5 mg-20 mg Tab, Oral, Daily metformin 500 mg ER Tab, Oral, Daily montelukast 10 mg T (more content not included)... Normal [facility] Comment on above: Result Comment: Elec tronically Signed By: Milvia Palomo MD\.br\Date and Time Signed: 04/21/22 17:24 EDT\.br\Electronically Co-Signed By: Lamar Lowry\.br\Date and Time Co-Signed: 04/21/22 12:13 EDT CBC AUTO DIFFon 01-26-2022 BASO # 0.1 103/ul Normal 0.0-0.1 [facility] Comment on above: Performed By: #### P TT, PT #### [facility] [address] [place] [address] Dr. Marcell Luque Basophils/100 WBC (Bld) 1.1 % Normal 0.2-2.0 [facility] Comment on above: Performed By: #### P TT, PT #### [facility] [address] [place] [address] Dr. Marcell Luque EO # 0.3 103/ul Normal 0.0-0.7 [facility] Comment on above: Performed By: #### P TT, PT #### [facility] [address] [place] [address] Dr. Marcell Luque Eosinophils/100 WBC (Bld) 5.0 % Normal 0.9-7.0 [facility] Comment on above: Performed By: #### P TT, PT #### [facility] [address] [place] [address] Dr. Marcell Luque Erythrocyte distribution width (RBC) [Ratio] 13.0 % Normal 11.0-15.0 [facility] Comment on above: Performed By: #### P TT, PT #### [facility] [address] [place] [address] Dr. Marcell Luque Hematocrit (Bld) [Volume fraction] 44.3 % Normal 42.0-54.0 [facility] Comment on above: Performed By: #### P TT, PT #### [facility] [address] [place] [address] Dr. Marcell Luque Hemoglobin (Bld) [Mass/Vol] 14.3 g/dL Normal 14.0-18.0 [facility] Comment on above: Performed By: #### P TT, PT #### [facility] [address] [place] [address] Dr. Marcell Luque IG # 0.01 10e3/ul Normal 0.00-0.03 [facility] Comment on above: Performed By: #### P TT, PT #### [facility] [address] [place] [address] Dr. Marcell Luque IG % 0.2 % Normal 0.0-0.5 [facility] Comment on above: Performed By: #### P TT, PT #### [facility] [address] [place] [address] Dr. Marcell Luque LYMPH # 2.1 103/ul Normal 1.2-3.8 [facility] Comment on above: Performed By: #### P TT, PT #### [facility] [address] [place] [address] Dr. Marcell Luque Lymphocytes/100 WBC (Bld) 32.6 % Normal 20.5-60.0 [facility] Comment on above: Performed By: #### P TT, PT #### [facility] [address] [place] [address] Dr. Marcell Luque MANUAL DIFF REQ NO Normal [facility] Comment on above: Performed By: #### P TT, PT #### [facility] [address] [place] [address] Dr. Marcell Luque MCH (RBC) [Entitic mass] 27.7 pg Normal 25.9-34.0 [facility] Comment on above: Performed By: #### P TT, PT #### [facility] [address] [place] [address] Dr. Marcell Luque MCHC (RBC) [Mass/Vol] 32.3 g/dL Normal 29.9-35.2 [facility] Comment on above: Performed By: #### P TT, PT #### [facility] [address] [place] [address] Dr. Marcell Luque MCV (RBC) [Entitic vol] 85.7 fL Normal 80.0-94.0 [facility] Comment on above: Performed By: #### P TT, PT #### [facility] [address] [place] [address] Dr. Marcell Luque MONO # 0.4 103/ul Normal 0.3-0.8 [facility] Comment on above: Performed By: #### P TT, PT #### [facility] [address] [place] [address] Dr. Marcell Luque Monocytes/100 WBC (Bld) 6.9 % Normal 1.7-12.0 [facility] Comment on above: Performed By: #### P TT, PT #### [facility] [address] [place] [address] Dr. Marcell Luque NEUT # 3.5 103/ul Normal 1.4-6.5 [facility] Comment on above: Performed By: #### P TT, PT #### [facility] [address] [place] [address] Dr. Marcell Luque Neutrophils/100 WBC (Bld) 54.2 % Normal 43.0-75.0 [facility] Comment on above: Performed By: #### P TT, PT #### [facility] [address] [place] [address] Dr. Marcell Luque Platelet mean volume (Bld) [Entitic vol] 11.9 fL Normal 9.5-13.5 [facility] Comment on above: Performed By: #### P TT, PT #### [facility] [address] [place] [address] Dr. Marcell Luque PLT 268 103/ul Normal 150-450 [facility] Comment on above: Performed By: #### P TT, PT #### [facility] [address] [place] [address] Dr. Marcell Luque RBC 5.17 106/ul Normal 4.70-6.10 [facility] Comment on above: Performed By: #### P TT, PT #### [facility] [address] [place] [address] Dr. Marcell Luque WBC 6.4 103/ul Normal 4.0-11.0 [facility] Comment on above: Performed By: #### P TT, PT #### [facility] [address] [place] [address] Dr. Marcell Luque GLYCOHEMOGLOBIN A1Con 2021 ADA RECOMMENDATION SEE BELOW Normal [facility] Comment on above: Result Comment: ADA RECOMMENDED LIMIT 4.0 - 6.0 ADA THERAPEUTIC TARGET < 7.0 ACTION SUGGESTED > 7.0 Performed By: #### A 1C #### [facility] [address] [place] [address] Dr. Marcell Luque Glucose [Mass/Vol] 272 mg/dL Normal [facility] Comment on above: Performed By: #### A 1C #### [facility] [address] [place] [address] Dr. Marcell Luque HbA1c (Bld) [Mass fraction] 11.1 % Critically high 4.5-6.2 [facility] Comment on above: Performed By: #### A 1C #### [facility] [address] [place] [address] Dr. Marcell Luque LIPID PROFILEon 01-26-2022 CHOL-HDL RATIO NORM SEE BELOW Normal [facility] Comment on above: Result Comment: 3.3 - 4.4 LOW RISK 4.4 - 7.1 AVERAGE RISK 7.1 - 11.0 MODERATE RISK >11.0 HIGH RISK Performed By: #### L IVER, LIPID, BMP #### [facility] [address] [place] [address] Dr. Marcell Luque Cholesterol [Mass/Vol] 219 mg/dL Critically high <=200 [facility] Comment on above: Performed By: #### L IVER, LIPID, BMP #### [facility] [address] [place] [address] Dr. Marcell Luque Cholesterol in HDL [Mass/Vol] 42 mg/dL Normal 40-60 [facility] Comment on above: Performed By: #### L IVER, LIPID, BMP #### [facility] [address] [place] [address] Dr. Marcell Luque Cholesterol in LDL [Mass/Vol] 151.8 mg/dL Normal [facility] Comment on above: Performed By: #### L IVER, LIPID, BMP #### [facility] [address] [place] [address] [address] Marcell Luque Cholesterol.total/Cho lesterol in HDL [Mass ratio] 5.2 {ratio} Normal [facility] Comment on above: Performed By: #### L IVER, LIPID, BMP #### [facility] [address] [address] [address] Marcell Luque HDL NORMAL > or = 60 mg/dl - LO W CARDIOVASCULAR RISK <40 mg/dl - HIGH CARDIOVASCULAR RISK Normal [facility] Comment on above: Performed By: #### L IVER, LIPID, BMP #### [facility] [address] [place] [address] [address] Marcell Luque LDL CALC NORMAL SEE BELOW Normal [facility] Comment on above: Result Comment: <100 mg/dl OPTIMAL 100 - 129 mg/dl NEAR OR ABOVE OPTIMAL 130 - 159 mg/dl BORDERLINE HIGH 160 - 189 mg/dl HIGH >190 mg/dl VERY HIGH Performed By: #### L IVER, LIPID, BMP #### [facility] [address] [address] [address] Marcell Luque Triglyceride [Mass/Vol] 126 mg/dL Normal <=150 [facility] Comment on above: Performed By: #### L IVER, LIPID, BMP #### [facility] [address] [address] [address] Marcell Luque VLDL CALC 25.2 mg/dL Normal [facility] Comment on above: Performed By: #### L IVER, LIPID, BMP #### [facility] [address] [address] [address] Marcell Luque LIVER PROFILEon 01-26-2022 Albumin [Mass/Vol] 3.8 g/dL Normal 3.4-5.0 [facility] Comment on above: Performed By: #### L IVER, LIPID, BMP #### [facility] [address] [address] [address] Marcell Luque Albumin/Globulin [Mass ratio] 1.0 {ratio} Normal [facility] Comment on above: Performed By: #### L IVER, LIPID, BMP #### [facility] [address] [place] [address] Dr. Marcell Luque ALP [Catalytic activity/Vol] 106 U/L Normal 46-116 [facility] Comment on above: Performed By: #### L IVER, LIPID, BMP #### [facility] [address] [place] [address] Dr. Marcell Luque ALT [Catalytic activity/Vol] 34 U/L Normal 16-63 [facility] Comment on above: Performed By: #### L IVER, LIPID, BMP #### [facility] [address] [place] [address] Dr. Marcell Luque AST [Catalytic activity/Vol] 19 U/L Normal 15-37 [facility] Comment on above: Performed By: #### L IVER, LIPID, BMP #### [facility] [address] [place] [address] Dr. Marcell Luque BILI, CONJUGATED 0.1 mg/dL Normal 0.0-0.2 [facility] Comment on above: Performed By: #### L IVER, LIPID, BMP #### [facility] [address] [place] [address] Dr. Marcell Luque Bilirubin [Mass/Vol] 0.5 mg/dL Normal 0.2-1.0 [facility] Comment on above: Performed By: #### L IVER, LIPID, BMP #### [facility] [address] [place] [address] Dr. Marcell Luque Globulin (S) [Mass/Vol] 3.9 g/dL Normal [facility] Comment on above: Performed By: #### L IVER, LIPID, BMP #### [facility] [address] [place] [address] Dr. Marcell Luque Protein [Mass/Vol] 7.7 g/dL Normal 6.4-8.2 [facility] Comment on above: Performed By: #### L IVER, LIPID, BMP #### [facility] [address] [place], [place] [id number] Dr. Marcell Luque PROF CHEM 8 (BAS METB)on Anion gap [Moles/Vol] 12.1 mmol/L Normal Th [facility] Comment on above: Performed By: #### L IVER, LIPID, BMP #### [facility] [address] [address] [address] Marcell Luque Calcium [Mass/Vol] 9.3 mg/dL Normal 8.5-10.1 [facility] Comment on above: Performed By: #### L IVER, LIPID, BMP #### [facility] [address] [address] [address] Marcell Luque Chloride [Moles/Vol] 100 mmol/L Normal 98-107 [facility] Comment on above: Performed By: #### L IVER, LIPID, BMP #### [facility] [address] [place] [address] Dr. Marcell Luque CO2 [Moles/Vol] 29.1 mmol/L Normal 21.0-32.0 [facility] Comment on above: Performed By: #### L IVER, LIPID, BMP #### [facility] [address] [address] [address] Marcell Luque Creatinine [Mass/Vol] 1.23 mg/dL Normal 0.70-1.30 [facility] Comment on above: Performed By: #### L IVER, LIPID, BMP #### [facility] [address] [place] [address] Dr. Marcell Luque EGFR-AF GIBRALTARIAN >60 Normal >=60 [facility] Comment on above: Performed By: #### L IVER, LIPID, BMP #### [facility] [address] [address] [address] Marcell Luque EGFR-NON AF GIBRALTARIAN 59 mL/min/1.73m2 Critically low >=60 [facility] Comment on above: Performed By: #### L IVER, LIPID, BMP #### [facility] [address] [place] [address] Dr. Marcell Luque Glucose [Mass/Vol] 358 mg/dL Critically high 74-106 [facility] Comment on above: Performed By: #### L IVER, LIPID, BMP #### [facility] [address] [address] [address] Marcell Luque Potassium [Moles/Vol] 4.2 mmol/L Normal 3.5-5.1 [facility] Comment on above: Performed By: #### L IVER, LIPID, BMP #### [facility] [address] [place] [address] Dr. Marcell Luque Sodium [Moles/Vol] 137 mmol/L Normal 136-145 [facility] Comment on above: Performed By: #### L IVER, LIPID, BMP #### [facility] [address] [place] [address] Dr. Marcell Luque Urea nitrogen [Mass/Vol] 10.0 mg/dL Normal 7.0-18.0 [facility] Comment on above: Performed By: #### L IVER LIPID, BMP #### [facility] [address] [place] [address] Dr. Marcell Luque Urea nitrogen/Creatinine [Mass ratio] 8.1 mg/mg Normal [facility] Comment on above: Performed By: #### L KALPESH LIPID, BMP #### [facility] [address] [place] [address] Dr. Marcell Luque VITAMIN D 25 OHon 01-26-2022 VIT D 25-OH 40.2 ng/mL Normal [facility] Comment on above: Performed By: #### P TT, PT #### [facility] [address] [place] [address] Dr. Marcell Luque VIT D RANGES SEE BELOW Normal [facility] Comment on above: Result Comment: <20 ng/mL Vit D deficient 20 - <30 ng/mL Vit D insufficient 30 - 100 ng/mL Vit D sufficient >100 ng/mL Potential Toxicity Performed By: #### P TT, PT #### [facility] [address] [place] [address] Dr. Marcell Luque Protein S Activityon 019 Protein [Mass/Vol] 101 % Normal 77-116 [facility] Comment on above: Result Comment: Patients on oral anticoagulants will have decreased functional protein C/S values. Oral anticoagulant therapy should be discontinued for two weeks for accurate measurement of functional protein C/S levels. Artifactually elevated levels of functional protein C/S may be seen in patients receiving heparin, while decreased functionality may be seen in patients with abnormally elevated levels of Factor VIII. Performed By: #### H OCYS, APA, PTT, PT, FA8, DRVT, PROCAC, PROSAC ####[facility] [address] [place] [address] Lab Director: Stas Irving MD APTTon 06-15-2019 aPTT Coag (Bld) [Time] 29.6 s Normal 20.5-30.5 [facility] Comment on above: Performed By: #### H OCYS, APA, PTT, PT, FA8, DRVT, PROCAC, PROSAC ####[facility] [address] [place] [address] Lab Director: Stas Irving MD Dilute Deepak Viperon 06-15 Dilute Deepak Viper Negative Normal [facility] Comment on above: Performed By: #### H OCYS, APA, PTT, PT, FA8, DRVT, PROCAC, PROSAC ####[facility] [address] [place] [address] lab Director: Stas Irving MD Factor VIII Activityon 06-15 Factor VIII Activity 173 % High 50-150 [facility] Comment on above: Performed By: #### H OCYS, APA, PTT, PT, FA8, DRVT, PROCAC, PROSAC ####[facility] [address] [place] [address] Lab Director: Stas Irving MD PTon 06-15-2019 INR Coag (PPP) [Relative time] 1.1 {INR} Normal [facility] Comment on above: Result Comment: Therapeutic Range: Moderate Anticoagulant Intensity: INR = 2.0-3.0 High Anticoagulant Intensity: INR = 2.5-3.5 Performed By: #### H OCYS, APA, PTT, PT, FA8, DRVT, PROCAC, PROSAC ####[facility] [address] [place], [place] [id number] Lab Director: Stas Irving MD PT Coag (PPP) [Time] 11.8 s Normal 9.0-12.0 [facility] Comment on above: Performed By: #### H OCYS, APA, PTT, PT, FA8, DRVT, PROCAC, PROSAC ####[facility] [address] [place] [address] lab Director: Stas Irving MD Protein C Activityon 019 Protein [Mass/Vol] 130 % Normal >80 [facility] Comment on above: Result Comment: Patients on oral anticoagulants will have decreased functional protein C/S values. Oral anticoagulant therapy should be discontinued for two weeks for accurate measurement of functional protein C/S levels. Artifactually elevated levels of functional protein C/S may be seen in patients receiving heparin, while decreased functionality may be seen in patients with abnormally elevated levels of Factor VIII. Performed By: #### H OCYS, APA, PTT, PT, FA8, DRVT, PROCAC, PROSAC ####[facility] [place] [address] lab Director: Stas Irving MD Anti-Phospholipid Abon 06-12 Antiphospholipid IgA 15.3 APU High <12 [facility] Comment on above: Result Comment: Reference Range: 12 - 15 Equivocal >15 Positive Performed By: #### H OCYS, APA, PTT, PT, FA8, DRVT, PROCAC, PROSAC ####[facility] [address] [place], [place] [id number] Lab Director: Stas Irving MD Antiphospholipid IgG 2.7 GPU Normal <20 [facility] Comment on above: Result Comment: Reference Range: 20.0 - 29.9 Low Positive 30.0 - 79.9 Moderate Positive >79.9 High Positive Performed By: #### H OCYS, APA, PTT, PT, FA8, DRVT, PROCAC, PROSAC ####[facility] [address] [place] [address] Lab Director: Stas Irving MD Antiphospholipid IgM 4.7 MPU Normal <20 [facility] Comment on above: Result Comment: Reference Range: 20.0 - 29.9 Low Positive 30.0 - 79.9 Moderate Positive >79.9 High Positive Performed By: #### H OCYS, APA, PTT, PT, FA8, DRVT, PROCAC, PROSAC ####[facility] [address] [place], [place] [phone] Lab Director: Stas Irving MD Basic Metabolic Panel 05-22 Anion gap [Moles/Vol] 12 mmol/L 9 - 17 mmol/L [place] Bun/Cre Ratio NOT REPORTED [place] Calcium [Mass/Vol] 9.6 mg/dL 8.6 - 10. 4 mg/dL [place] Chloride [Moles/Vol] 97 mmol/L Low 98 - 10 7 mmol/L [place] CO2 [Moles/Vol] 29 mmol/L 20 - 31 mmol/L [place] Creatinine [Mass/Vol] 1.08 mg/dL 0.7 - 1.2 mg/dL [place] GFR >60 >60 mL/min [place] GFR Non- >60 >60 mL/min [place] GFR/1.73 sq M predicted among non-blacks MDRD (S/P/Bld) [Vol rate/Area] [place] Comment on above: Average GFR for 60-6 9 years old: 85 mL/min/1.73sq m Chronic Kidney Disease: <60 mL/min/1.73sq m Kidney failure: <15 mL/min/1.73sq m eGFR calculated using average adult body mass. Additional eGFR calculator available at: http://www.[employer].Uberpong/multiple_crcl_2012.htm GFR/1.73 sq M predicted among non-blacks MDRD (S/P/Bld) [Vol rate/Area] NOT REPORTED [place] Glucose [Mass/Vol] 198 mg/dL High 70 - 99 mg/dL [place] Interpretation and review of laboratory results Abnormal [place] Potassium [Moles/Vol] 3.9 mmol/L 3.7 - 5.3 mmol/L [place] Sodium [Moles/Vol] 138 mmol/L 135 - 144 mmol/L [place] Urea nitrogen [Mass/Vol] 14 mg/dL 8 - 23 mg/dL [place] Basic Metabolic Profon 06-09 (cont.) Normal [facility] Comment on above: Result Comment: Aver age GFR for 60-69 years old: 85 mL/min/1.73sq m Chronic Kidney Disease: <60 mL/min/1.73sq m Kidney failure: <15 mL/min/1.73sq m eGFR calculated using average adult body mass. Additional eGFR calculator available at: http://www.[employer]/multiple_crcl_2012.htm Performed By: #### C DP, BMP ####[facility] [address] [place] [address] Lab Director: Stas Irving MD Anion gap [Moles/Vol] 12 mmol/L Normal 9-17 [facility] Comment on above: Performed By: #### C DP, BMP ####[facility] [address] [id number] Lab Director: Stas Irving MD Calcium [Mass/Vol] 9.6 mg/dL Normal 8.6-10.4 [facility] Comment on above: Performed By: #### C DP, BMP ####[facility] [address] [place], [place] [id number] Lab Director: Stas Irving MD Chloride [Moles/Vol] 97 mmol/L Low 98-107 [facility] Comment on above: Performed By: #### C DP, BMP ####[facility] [address] [place], [place] [phone] Director: Stas Irving MD CO2 [Moles/Vol] 29 mmol/L Normal 20-31 [facility] Comment on above: Performed By: #### C DP, BMP ####[facility] [address] [place], [place] [phone] Director: Stas Irving MD Creatinine [Mass/Vol] 1.08 mg/dL Normal 0.70-1.20 [facility] Comment on above: Performed By: #### C DP, BMP ####[facility] [address] [place], [place] [phone])[phone] Director: Stas Irving MD GFR, Amer >60 Normal >60 [facility] Comment on above: Performed By: #### C DP, BMP ####[facility] [address] [place] [address] [phone] Director: Stas Irving MD GFR,non Amer >60 Normal >60 [facility] Comment on above: Performed By: #### C DP, BMP ####[facility] [address] [place], [place] [phone] Director: Stas Irving MD Glucose [Mass/Vol] 198 mg/dL High 70-99 [facility] Comment on above: Performed By: #### C DP, BMP ####[facility] [address] [place], [place] [phone] Director: Stas Irving MD Potassium [Moles/Vol] 3.9 mmol/L Normal 3.7-5.3 [facility] Comment on above: Performed By: #### C DP, BMP ####[facility] [address] [place], [place] [phone] Director: Stas Irving MD Sodium [Moles/Vol] 138 mmol/L Normal 135-144 [facility] Comment on above: Performed By: #### C DP, BMP ####[facility] [address] [place] [address] Lab Director: Stas Irving MD Urea nitrogen [Mass/Vol] 14 mg/dL Normal 8- [facility] Comment on above: Performed By: #### C DP, BMP ####[facility] [address] [place] [address] Lab Director: Stas Irving MD BUN/CRE Ratio NOT REPORTED Normal - [facility] Comment on above: Performed By: #### C DP, BMP ####[facility] [address] [place], [place] [phone] lab Director: Stas Irving MD Staging: NOT REPORTED Normal [facility] Comment on above: Performed By: #### C DP, BMP ####[facility] [address] [place] [address] lab Director: Stas Irving MD CBC Auto Differentialon 05-22 Basophils (Bld) [#/Vol] 0.07 10*3/uL [place] Basophils/100 WBC (Bld) 1 % 0 - 2 % [place] Differential Type NOT REPORTED [place] Eosinophils (Bld) [#/Vol] 0.77 10*3/uL High [place] Eosinophils/100 WBC (Bld) 10 % High 1 - 4 % [place] Erythrocyte distribution width (RBC) [Ratio] 13.7 % 11.8 - 14.4 % [place] Hematocrit (Bld) [Volume fraction] 53.7 % High 40.7 - 50.3 % [place] Hemoglobin (Bld) [Mass/Vol] 17.0 g/dL 13 - 17 g/dL [place] Immature granulocytes (Bld) [#/Vol] 10*3/uL [place] Immature granulocytes (Bld) [#/Vol] 0 % 0 [place] Interpretation and review of laboratory results Abnormal [place] Lymphocytes (Bld) [#/Vol] 2.66 10*3/uL [place] Lymphocytes/100 WBC (Bld) 36 % 24 - 43 % [place] MCH (RBC) [Entitic mass] 28.3 pg 25.2 - 33.5 pg [place] MCHC (RBC) [Mass/Vol] 31.7 g/dL 28.4 - 34.8 g/dL [place] MCV (RBC) [Entitic vol] 89.5 fL 82.6 - 102.9 fL [place] Monocytes (Bld) [#/Vol] 0.89 10*3/uL [place] Monocytes/100 WBC (Bld) 12 % 3 - 12 % [place] Platelet mean volume (Bld) [Entitic vol] 10.9 fL 8.1 - 13.5 fL [place] Platelets (Bld) [#/Vol] NOT REPORTED [place] Platelets (Bld) [#/Vol] 189 10*3/uL [place] RBC (Bld) [#/Vol] 6.00 10*6/uL High 4.21 - 5.7 7 m/uL [place] RBC morphology finding Nom (Bld) NOT REPORTED [place] Segmented neutrophils/100 WBC (Bld) 41 % 36 - 65 % [place] Segs Absolute 3.07 [place] WBC (Bld) [#/Vol] 0.0 10*3/uL 0.0 per 10 0 WBC [place] WBC (Bld) [#/Vol] 7.5 10*3/uL [place] WBC Morphology NOT REPORTED [place] CBC with Diffon 06-09-2019 Abs. Basophil 0.07 k/uL Normal 0.00-0.20 [facility] Comment on above: Performed By: #### C DP, BMP ####[facility] [address] [place] [address] Lab Director: Stas Irving MD Abs.Imm.Granulocyte <0.03 Normal 0.00-0.30 [facility] Comment on above: Performed By: #### C DP, BMP ####[address] [phone] Director: Stas Irving MD Abs.Neutrophil (Seg) 3.07 k/uL Normal 1.50-8.10 [facility] Comment on above: Performed By: #### C DP, BMP ####[place], [place] [phone] Director: Stas Irving MD Basophils/100 WBC (Bld) 1 % Normal 0-2 [facility] Comment on above: Performed By: #### C DP, BMP ####[place], [place] [address])[phone] Director: Stas Irving MD Eosinophils (Bld) [#/Vol] 0.77 10*3/uL High 0.00-0.44 [facility] Comment on above: Performed By: #### C DP, BMP ####[place], [place] [address])[phone] Director: Stas Irving MD Eosinophils/100 WBC (Bld) 10 % High 1-4 [facility] Comment on above: Performed By: #### C DP, BMP ####[place], [place] [phone] Director: Stas Irving MD Erythrocyte distribution width (RBC) [Ratio] 13.7 % Normal 11.8-14.4 [facility] Comment on above: Performed By: #### C DP, BMP ####[place], [place] [address])[phone] Director: Stas Irving MD Hematocrit (Bld) [Volume fraction] 53.7 % High 40.7-50.3 [facility] Comment on above: Performed By: #### C DP, BMP ####[address] [phone] Director: Stas Irving MD Hemoglobin (Bld) [Mass/Vol] 17.0 g/dL Normal 13.0-17.0 [facility] Comment on above: Performed By: #### C DP, BMP ####[address] [phone] Director: Stas Irving MD Immature granulocytes (Bld) [#/Vol] 0 % Normal 0 [facility] Comment on above: Performed By: #### C DP, BMP ####[address] [address])[phone] Director: Stas Irving MD Lymphocytes (Bld) [#/Vol] 2.66 10*3/uL Normal 1.10-3.70 [facility] Comment on above: Performed By: #### C DP, BMP ####[address] [address])[phone] Director: Stas Irving MD Lymphocytes/100 WBC (Bld) 36 % Normal 24-43 [facility] Comment on above: Performed By: #### C DP, BMP ####[place], [place] [address])[phone] Director: Stas Irving MD MCH (RBC) [Entitic mass] 28.3 pg Normal 25.2-33.5 [facility] Comment on above: Performed By: #### C DP, BMP ####[address] [phone] Director: Stas Irving MD MCHC (RBC) [Mass/Vol] 31.7 g/dL Normal 28.4-34.8 [facility] Comment on above: Performed By: #### C DP, BMP ####[facility] [address] [place], [place] [phone] Director: Stas Irving MD MCV (RBC) [Entitic vol] 89.5 fL Normal 82.6-102.9 [facility] Comment on above: Performed By: #### C DP, BMP ####[address] [phone] Director: Stas Irving MD Monocytes (Bld) [#/Vol] 0.89 10*3/uL Normal 0.10-1.20 [facility] Comment on above: Performed By: #### C DP, BMP ####[address] [phone] Director: Stas Irving MD Monocytes/100 WBC (Bld) 12 % Normal 3-12 [facility] Comment on above: Performed By: #### C DP, BMP ####[address] [phone] Director: Stas Irving MD Neutrophil (Seg) 41 % Normal 36-65 [facility] Comment on above: Performed By: #### C DP, BMP ####[address] [phone] Director: Stas Irving MD NRBC Automated 0.0 per 100 WBC Normal 0.0 [facility] Comment on above: Performed By: #### C DP, BMP ####[facility] [address] [place] [address] [phone] Director: Stas Irving MD Platelet mean volume (Bld) [Entitic vol] 10.9 fL Normal 8.1-13.5 [facility] Comment on above: Performed By: #### C DP, BMP ####[address] [phone] Director: Stas Irving MD Platelets (Bld) [#/Vol] 189 10*3/uL Normal 138-453 [facility] Comment on above: Performed By: #### C DP, BMP ####[address] [address] Lab Director: Stas Irving MD RBC (Bld) [#/Vol] 6.00 10*6/uL High 4.21-5.77 [facility] Comment on above: Performed By: #### C DP, BMP ####[address] [address] Lab Director: Stas Irving MD WBC (Bld) [#/Vol] 7.5 10*3/uL Normal 3.5-11.3 [facility] Comment on above: Performed By: #### C DP, BMP ####[address] [address] Lab Director: Stas Irving MD Auto Diff Performed NOT REPORTED Normal [facility] Comment on above: Performed By: #### C DP, BMP ####[address] [address] Lab Director: Stas Irving MD Platelets (Bld) [#/Vol] NOT REPORTED Normal [facility] Comment on above: Performed By: #### C DP, BMP ####[facility] [address] [place] [address] Lab Director: Stas Irving MD RBC morphology finding Nom (Bld) NOT REPORTED Normal [facility] Comment on above: Performed By: #### C DP, BMP ####[facility] [address] [place] [address] Lab Director: Stas Irving MD WBC Morphology NOT REPORTED Normal [facility] Comment on above: Performed By: #### C DP, BMP ####[facility] [address] [place] [address] Lab Director: Stas Irving MD DNA Testingon 06-09-2019 DNA Testing (NOTE) [id number] [facility]NOST[facility] MOLECULAR PATHOLOGY LAB[facility] [place], [place] [address] FACTOR V LEIDEN MUTATION ANALYSIS REPORT [facility] Aron Llanes MD, Ravinder Pratt MD Specimen(s) Received: Peripheral blood, [facility] Clinical Information: CVA RESULTS: MOLECULAR GENETIC DIAGNOSIS: Negative for Factor V Leiden Mutation INTERPRETATION: The Factor V Leiden mutation (1691GA) [c.1601G>A(p.Wju163Mb n)] was not detected in this study. This patient may, however, still be at risk for venous thrombosis due to another genetic predisposition including the Factor II (Prothrombin 83213ES) mutation or either of the 5, 10-methylenetetrahydr ofolate reductase (MTHFR) mutations (677T and C2999U) Additional molecular testing is available for these mutations in this laboratory. In addition, other etiologies not studied in this assay may predispose this patient to venous thrombosis. Patients and their families undergoing molecular diagnostic testing should understand that a normal result for such tests does not preclude the unlikely possibility of genotyping errors occurring as a result of rare genetic variants which can interfere with the analysis or an unusual mutation of the gene(s) being studied. This molecular test has been approved for in vitro diagnostic use by the [place] FDA. This test is used for clinical purposes. Pursuant to the requirements of CLIA '88, this laboratory has established and verified the test's accuracy and precision. It should not be regarded as investigational or for research. This laboratory is certified under the Clinical Laboratory Improvement Amendments of 1988 (CLIA '88) as qualified to perform high complexity clinical laboratory testing. METHODOLOGY: Factor V Leiden is a single point mutation in the Factor V gene at nucleotide position 1691 involving a G to A substitution (1691GA), which predicts a single amino acid replacement ([id number]) at one of three activated protein C (APC) cleavage sites in the Factor Va molecule. Factor V Leiden is inactivated at an approximately 10-fold slower rate than normal Factor V and persists longer in the circulation, resulting in increased thrombin generation and a mild hypercoagulable state. Twenty to 40% of venous thrombosis cases are associated with this mutation, and more than 95% of cases of APC-resistance are caused by this mutation. Individuals heterozygous for the Factor V Leiden mutation have a slightly increased risk (5-fold to 8-fold) for venous thrombosis, and homozygous individuals have a much greater (up to 80-fold) thrombotic risk. Patient DNA is assayed for the presence of wild type or mutant gene sequences in the Factor V gene by the Invader Factor V test that utilizes [employer] chemistry for detecting gene-specific sequences. Target amplification is followed by the signal generation (Invader) phase of the assay. The Invader assay employs a genetically engineered nuclease, known as a Cleavasee enzyme, to recognize and cleave specific genomic structures formed by the addition of two oligonucleotide probes [Wild Type (WT) or Mutant (Mut)] to a nucleic acid target. Fluorescence signal intensity is enhanced through a second Cleavasee cleavage reaction and fluorescence resonance energy transfer (FRET), with detection of fluorescent signal using a fluorescence plate reader. Invader and Cleavase are registered trademarks of [employer]. This test is performed pursuant to an agreement with [employer] Electronically Signed Out Ravinder Pratt M.D. Normal [facility] Comment on above: Performed By: #### P PPFVL ####[address] [id number] Lab Director: Stas Irving MD DNA Testing (NOTE) [id number] [facility] MOLECULAR PATHOLOG[facility] LABORATORY [address] [place], [place] [address] FACTOR II (PROTHROMBIN) MUTATION ANALYSIS REPORT [place] [facility] Aron Llanse MD, Ravinder Pratt MD Specimen(s) Received: Peripheral blood, PTI Clinical Information: CVA RESULTS: MOLECULAR GENETIC DIAGNOSIS: Negative for Prothrombin 59268H Mutation INTERPRETATION: The Factor II (Prothrombin) mutation (78028BH) [c.*97G>A] was not detected in this study. This patient may, however, still be at risk for venous thrombosis due to another genetic predisposition including the Factor V Leiden (1691GA) mutation or either of the 5, 10-methylenetetrahydr ofolate reductase (MTHFR) mutations (677T and B9905P). Additional molecular testing is available for these mutations in this laboratory. In addition, other etiologies not studied in this assay may predispose this patient to venous thrombosis. Patients and their families undergoing molecular diagnostic testing should understand that a normal result for such tests does not preclude the unlikely possibility of genotyping errors occurring as a result of rare genetic variants which can interfere with the analysis or an unusual mutation of the gene(s) being studied. This molecular test has been approved for in vitro diagnostic use by the U.S. FDA. This test is used for clinical purposes. Pursuant to the requirements of CLIA '88, this laboratory has established and verified the test's accuracy and precision. It should not be regarded as investigational or for research. This laboratory is certified under the Clinical Laboratory Improvement Amendments of 1988 (CLIA '88) as qualified to perform high complexity clinical laboratory testing. METHODOLOGY: Prothrombin is a precursor of the enzyme serine protease thrombin that has procoagulant, anticoagulant, and antifibrinolytic activities. A single point mutation has been identified in exon 14 at position 89610 of the prothrombin gene ([id number]). This allele has a population frequency of 1.2% and is associated with a 2.8 fold increased risk of venous thrombosis in individuals of [place] ancestry. Patient DNA is assayed for the presence of wild type or mutant gene sequences in the Factor II (Prothrombin) gene by the Invader Factor II test that utilizes [employer] chemistry for detecting gene-specific sequences. Target amplification is followed by the signal generation (Invader) phase of the assay. The Invader assay employs a genetically engineered nuclease, known as a Cleavasee enzyme, to recognize and cleave specific genomic structures formed by the addition of two oligonucleotide probes [Wild Type (WT) or Mutant (Mut)] to a nucleic acid target. Fluorescence signal intensity is enhanced through a second Cleavasee cleavage reaction and fluorescence resonance energy transfer (FRET), with detection of fluorescent signal using a fluorescence plate reader. Invader and Cleavase are registered trademarks of [employer] This test is performed pursuant to an agreement with [employer] Electronically Signed Out Ravinder Pratt M.D. Normal [facility] Comment on above: Performed By: #### P PPPT ####[facility] [id number] [place] [address] Lab Director: Stas Irving MD Homocysteineon 06-09-2019 Homocysteine 9.4 umol/L Normal <15.0 [facility] Comment on above: Performed By: #### H OCYS, APA, PTT, PT, FA8, DRVT, PROCAC, PROSAC ####[facility] [id number] [place] [address] Lab Director: Stas Irving MD Homocysteine, Serumon 2018 Homocysteine 9.4 umol/L <15.0 [place], [place] POC Glucose Fingerstickon Glucose [Mass/Vol] 276 mg/dL High 75 - 110 mg/dL [place], [place] Interpretation and review of laboratory results Abnormal [place] Glucose [Mass/Vol] 190 mg/dL High 75 - 110 mg/dL [place] Interpretation and review of laboratory results Abnormal [place] Basic Metabolic Panelon 05-22 Anion gap [Moles/Vol] 14 mmol/L 9 - 17 mmol/L [place] Bun/Cre Ratio NOT REPORTED [place] Calcium [Mass/Vol] 9.2 mg/dL 8.6 - 10. 4 mg/dL [place] Chloride [Moles/Vol] 96 mmol/L Low 98 - 10 7 mmol/L [place] CO2 [Moles/Vol] 24 mmol/L 20 - 31 mmol/L [place] Creatinine [Mass/Vol] 0.79 mg/dL 0.7 - 1.2 mg/dL [place] GFR >60 >60 mL/min [place] GFR Non- >60 >60 mL/min [place] GFR/1.73 sq M predicted among non-blacks MDRD (S/P/Bld) [Vol rate/Area] NOT REPORTED [place] GFR/1.73 sq M predicted among non-blacks MDRD (S/P/Bld) [Vol rate/Area] [place] Comment on above: Average GFR for 60-6 9 years old: 85 mL/min/1.73sq m Chronic Kidney Disease: <60 mL/min/1.73sq m Kidney failure: <15 mL/min/1.73sq m eGFR calculated using average adult body mass. Additional eGFR calculator available at: http://www.[employer]/multiple_crcl_2012.htm Glucose [Mass/Vol] 225 mg/dL High 70 - 99 mg/dL [place] Interpretation and review of laboratory results Abnormal [place] Potassium [Moles/Vol] 3.3 mmol/L Low 3.7 - 5.3 mmol/L [place] Sodium [Moles/Vol] 134 mmol/L Low 135 - 144 mmol/L [place] Urea nitrogen [Mass/Vol] 11 mg/dL 8 - 23 mg/dL [place] Basic Metabolic Profon 06-08 (cont.) Normal [facility] Comment on above: Result Comment: Aver age GFR for 60-69 years old: 85 mL/min/1.73sq m Chronic Kidney Disease: <60 mL/min/1.73sq m Kidney failure: <15 mL/min/1.73sq m eGFR calculated using average adult body mass. Additional eGFR calculator available at: http://www.[employer]/multiple_crcl_2012.htm Performed By: ###Xena CURRAN #### [address] [place] [address] Environmental Technology Professor: Stas Irving MD Anion gap [Moles/Vol] 14 mmol/L Normal 9-17 [facility] Comment on above: Performed By: ###Xena CURRAN #### [address] [place] [address] Environmental Technology Professor: Stas Irving MD Calcium [Mass/Vol] 9.2 mg/dL Normal 8.6-10.4 [facility] Comment on above: Performed By: ###Xena CURRAN #### [address] [address] Environmental Technology Professor: Stas Irving MD Chloride [Moles/Vol] 96 mmol/L Low 98-107 [facility] Comment on above: Performed By: #### S TOREYKE #### [address] [address] Environmental Technology Professor: Stas Irving MD CO2 [Moles/Vol] 24 mmol/L Normal 20-31 [facility] Comment on above: Performed By: #### S MAGDY #### [address] [address] Environmental Technology Professor: Stas Irving MD Creatinine [Mass/Vol] 0.79 mg/dL Normal 0.70-1.20 [facility] Comment on above: Performed By: #### S MAGDY #### [address] [address] Environmental Technology Professor: Stas Irving MD GFR, Amer >60 Normal >60 [facility] Comment on above: Performed By: #### S MAGDY #### [address] [address] Environmental Technology Professor: Stas Irving MD GFR,non Amer >60 Normal >60 [facility] Comment on above: Performed By: #### S MAGDY #### [address] [address] Environmental Technology Professor: Stas Irving MD Glucose [Mass/Vol] 225 mg/dL High 70-99 [facility] Comment on above: Performed By: #### S MAGDY #### [address] [address] Environmental Technology Professor: Stas Irving MD Potassium [Moles/Vol] 3.3 mmol/L Low 3.7-5.3 [facility] Comment on above: Performed By: #### S TROKE #### [facility] [address] [place] [address] Environmental Technology Professor: Stas Irving MD Sodium [Moles/Vol] 134 mmol/L Low 135-144 [facility] Comment on above: Performed By: #### S TOREYKE #### [facility] [employer] [facility] [place] [address] Environmental Technology Professor: Stas Irving MD Urea nitrogen [Mass/Vol] 11 mg/dL Normal - [facility] Comment on above: Performed By: #### S TOREYKE #### [facility] [place] [address] Environmental Technology Professor: Stas Irving MD BUN/CRE Ratio NOT REPORTED Normal 05-11 [facility] Comment on above: Performed By: #### S TOREYKE #### [facility] [address] [place] [address] Environmental Technology Professor: Stas Irving MD Staging: NOT REPORTED Normal [facility] Comment on above: Performed By: #### S TOREYKE #### [facility] [address] [place] [address] Environmental Technology Professor: Stas Irving MD CBC Auto Differentialon 05-22 Basophils (Bld) [#/Vol] 0.06 10*3/uL [place] Basophils/100 WBC (Bld) 1 % 0 - 2 % [place] Differential Type NOT REPORTED [place] Eosinophils (Bld) [#/Vol] 0.56 10*3/uL High [place] Eosinophils/100 WBC (Bld) 8 % High 1 - 4 % [place] Erythrocyte distribution width (RBC) [Ratio] 13.9 % 11.8 - 14.4 % [place] Hematocrit (Bld) [Volume fraction] 50.9 % High 40.7 - 50.3 % [place] Hemoglobin (Bld) [Mass/Vol] 16.8 g/dL 13 - 17 g/dL [place] Immature granulocytes (Bld) [#/Vol] 1 % High 0 [place] Immature granulocytes (Bld) [#/Vol] 0.04 10*3/uL [place] Interpretation and review of laboratory results Abnormal [place] Lymphocytes (Bld) [#/Vol] 2.28 10*3/uL [place] Lymphocytes/100 WBC (Bld) 32 % 24 - 43 % [place] MCH (RBC) [Entitic mass] 28.6 pg 25.2 - 33.5 pg [place] MCHC (RBC) [Mass/Vol] 33.0 g/dL 28.4 - 34.8 g/dL [place] MCV (RBC) [Entitic vol] 86.6 fL 82.6 - 102.9 fL [place] Monocytes (Bld) [#/Vol] 0.79 10*3/uL [place] Monocytes/100 WBC (Bld) 11 % 3 - 12 % [place] Platelet mean volume (Bld) [Entitic vol] 12.0 fL 8.1 - 13.5 fL [place] Platelets (Bld) [#/Vol] 285 10*3/uL [place] Platelets (Bld) [#/Vol] NOT REPORTED [place] RBC (Bld) [#/Vol] 5.88 10*6/uL High 4.21 - 5.7 7 m/uL [place] RBC morphology finding Nom (Bld) NOT REPORTED [place] Segmented neutrophils/100 WBC (Bld) 47 % 36 - 65 % [place] Segs Absolute 3.38 [place] WBC (Bld) [#/Vol] 7.1 10*3/uL [place] WBC (Bld) [#/Vol] 0.3 10*3/uL High 0.0 per 10 0 WBC [place] WBC Morphology NOT REPORTED [facility] [place], [place] CBC with Diffon 06-08-2019 Abs. Basophil 0.06 k/uL Normal 0.00-0.20 [facility] Comment on above: Performed By: #### S MAGDY #### [address] [address] Environmental Technology Professor: Stas Irving MD Abs.Imm.Granulocyte 0.04 k/uL Normal 0.00-0.30 [facility] Comment on above: Performed By: #### S MAGDY #### [address] [address] Environmental Technology Professor: Stas Irving MD Abs.Neutrophil (Seg) 3.38 k/uL Normal 1.50-8.10 [facility] Comment on above: Performed By: #### S MAGDY #### [address] [address] Environmental Technology Professor: Stas Irving MD Basophils/100 WBC (Bld) 1 % Normal 0-2 [facility] Comment on above: Performed By: #### Ирина CURRAN #### [address] [address] Environmental Technology Professor: Stas Irving MD Eosinophils (Bld) [#/Vol] 0.56 10*3/uL High 0.00-0.44 [facility] Comment on above: Performed By: #### S MAGDY #### [address] [address] Environmental Technology Professor: Stas Irving MD Eosinophils/100 WBC (Bld) 8 % High 1-4 [facility] Comment on above: Performed By: #### S MAGDY #### [address] [address] Environmental Technology Professor: Stas Irving MD Erythrocyte distribution width (RBC) [Ratio] 13.9 % Normal 11.8-14.4 [facility] Comment on above: Performed By: #### S TROKE #### [address] [address] Environmental Technology Professor: Stas Irving MD Hematocrit (Bld) [Volume fraction] 50.9 % High 40.7-50.3 [facility] Comment on above: Performed By: #### S TROKE #### [address] [address] Environmental Technology Professor: Stas Irving MD Hemoglobin (Bld) [Mass/Vol] 16.8 g/dL Normal 13.0-17.0 [facility] Comment on above: Performed By: #### S TROKE #### [address] [address] Environmental Technology Professor: Stas Irving MD Immature granulocytes (Bld) [#/Vol] 1 % High 0 [facility] Comment on above: Performed By: #### S TROKE #### [address] [address] Environmental Technology Professor: Stas Irving MD Lymphocytes (Bld) [#/Vol] 2.28 10*3/uL Normal 1.10-3.70 [facility] Comment on above: Performed By: #### S TROKE #### [address] [address] Environmental Technology Professor: Stas Irving MD Lymphocytes/100 WBC (Bld) 32 % Normal 24-43 [facility] Comment on above: Performed By: #### S TROKE #### [address] [address] Environmental Technology Professor: Stas Irving MD MCH (RBC) [Entitic mass] 28.6 pg Normal 25.2-33.5 [facility] Comment on above: Performed By: #### S TROKE #### [address] [id number] Environmental Technology Professor: Stas Irving MD MCHC (RBC) [Mass/Vol] 33.0 g/dL Normal 28.4-34.8 [facility] Comment on above: Performed By: #### S TOREYKE #### [address] [address] Environmental Technology Professor: Stas Irving MD MCV (RBC) [Entitic vol] 86.6 fL Normal 82.6-102.9 [facility] Comment on above: Performed By: #### S TOREYKE #### [address] [address] Environmental Technology Professor: Stas Irving MD Monocytes (Bld) [#/Vol] 0.79 10*3/uL Normal 0.10-1.20 [facility] Comment on above: Performed By: #### S MAGDY #### [address] [address] Environmental Technology Professor: Stas Irving MD Monocytes/100 WBC (Bld) 11 % Normal 3-12 [facility] Comment on above: Performed By: #### S TOREYKE #### [address] [address] Environmental Technology Professor: Stas Irving MD Neutrophil (Seg) 47 % Normal 36-65 [facility] Comment on above: Performed By: #### S TOREYKE #### [address] [address] Environmental Technology Professor: Stas Irving MD NRBC Automated 0.3 per 100 WBC High 0.0 [facility] Comment on above: Performed By: #### S TOREYKE #### [address] [address] Environmental Technology Professor: Stas Irving MD Platelet mean volume (Bld) [Entitic vol] 12.0 fL Normal 8.1-13.5 [facility] Comment on above: Performed By: #### S TROKE #### [facility] [address] [place] [address] Environmental Technology Professor: Stas Irving MD Platelets (Bld) [#/Vol] 285 10*3/uL Normal 138-453 [facility] Comment on above: Performed By: #### S TROKE #### [address] [address] Environmental Technology Professor: Stas Irving MD RBC (Bld) [#/Vol] 5.88 10*6/uL High 4.21-5.77 [facility] Comment on above: Performed By: #### S TROKE #### [address] [address] Environmental Technology Professor: Stas Irving MD WBC (Bld) [#/Vol] 7.1 10*3/uL Normal 3.5-11.3 [facility] Comment on above: Performed By: #### S TROKE #### [address] [address] Environmental Technology Professor: Stas Irving MD Auto Diff Performed NOT REPORTED Normal [facility] Comment on above: Performed By: #### S TROKE #### [address] [address] Environmental Technology Professor: Stas Irving MD Platelets (Bld) [#/Vol] NOT REPORTED Normal [facility] Comment on above: Performed By: #### S TROKE #### [address] [address] Environmental Technology Professor: Stas Irving MD RBC morphology finding Nom (Bld) NOT REPORTED Normal [facility] Comment on above: Performed By: #### S TROKE #### [address] [address] Environmental Technology Professor: Stas Irving MD WBC Morphology NOT REPORTED Normal [facility] Comment on above: Performed By: #### S MAGDY #### [facility] [address] [place], [place] [id number] Environmental Technology Professor: Stas Irvnig MD Magnesiumon 06-08-2019 Magnesium [Mass/Vol] 2.0 mg/dL Normal 1.6-2.6 [facility] Comment on above: Performed By: #### S TOREYKE #### [facility] [address] [place], [place] [id number] Environmental Technology Professor: Stas Irving MD Magnesium [Mass/Vol] 2.0 mg/dL 1.6 - 2 .6 mg/dL [place] POC Glucose Fingerstickon Glucose [Mass/Vol] 288 mg/dL High 75 - 110 mg/dL [place] Interpretation and review of laboratory results Abnormal [place] Glucose [Mass/Vol] 350 mg/dL High 75 - 110 mg/dL [place] Interpretation and review of laboratory results Abnormal [place] Glucose [Mass/Vol] 238 mg/dL High 75 - 110 mg/dL [place] Interpretation and review of laboratory results Abnormal [place] Glucose [Mass/Vol] 244 mg/dL High 75 - 110 mg/dL [place] Interpretation and review of laboratory results Abnormal [place] Phosphoruson 06-08-2019 Phosphate [Mass/Vol] 4.5 mg/dL 2.5 - 4 .5 mg/dL [place] Phosphorus, Inorg.on 019 Phosphorus, Inorg. 4.5 mg/dL Normal 2.5-4.5 [facility] Comment on above: Performed By: #### C DP, BMP, MG, CINTHYA ####[facility] [id number] [place], [place] [id number] Lab Director: Stas Irving MD VL DUP LOWER EXTREMITY VENOU S BILATERALon 06-08-2019 [facility] Vascular Lower Extremities DVT Study Procedure Patient Name LYDIA Date of Study 06/08/2019 EUNICE Alcantara Date of 1955 Gender Male Age 63 year(s) Race Black Room Number 0515 Height: 72 inch, 182.88 cm Corporate ID [id number] Weight: 220 pounds, 99.8 kg # Patient Acct [id number] BSA: 2.22 m^2 BMI: 29.84 kg/m^2 # MR # [id number] Attenuator Rina Frausto Interpreting Omer Oneil Physician Referring Referring Physician DYLON VICK ADMINISTRATIVE OFFICE ASSISTANT-[employer]ILL PROGRAMMER Nurse Practitioner Procedure Type of Study: Veins: Lower Extremities DVT Study, Venous Scan Lower Bilateral. Indications for Study:Hx of DVT. Patient Status:In Patient. Right Tech Comments:The common femoral, femoral, popliteal and tibial veins demonstrate normal compressibility and augmentation. Normal compressibility of the great saphenous vein. Normal compressibility of the small saphenous vein. Left Tech Comments:The common femoral, femoral, popliteal and tibial veins demonstrate normal compressibility and augmentation. Normal compressibility of the great saphenous vein. Normal compressibility of the small saphenous vein. Conclusions Summary Simultaneous real time imaging utilizing B-Mode, color doppler and spectral waveform analysis was performed on the bilateral lower extremities for venous examination of the deep and superficial systems. Findings are: Right: No evidence of deep or superficial venous thrombosis. Left: No evidence of deep or superficial venous thrombosis. Signature - - - - Findings: Right Impression: Left Impression: The common femoral, femoral, The common femoral, femoral, popliteal and tibial veins popliteal and tibial veins demonstrate normal compressibility demonstrate normal compressibility and augmentation. and augmentation. Normal compressibility of the great Normal compressibility of the great saphenous vein. saphenous vein. Normal compressibility of the small Normal compressibility of the small saphenous vein. saphenous vein. Risk Factors History +---------+----+----- + !Diagnosis!Date!Comme nts ! +---------+----+----- + !DVT ! !LT leg 7 yrs ago ! +---------+----+----- + - The patient's risk factor(s) include: insulin-treated diabetes mellitus, dyslipidemia and arterial hypertension. - The patient's last creatinine was 0.8 mg/dl. Allergies - Allergy:Penicillin(Dr ug). Velocities are measured in cm/s ; Diameters are measured in cm Right Lower Extremities DVT Study Measurements Right 2D Measurements + +---- ------+ -+ + !Location !Visualized!Compressi bility!Thrombosis! + +---- ------+ -+ + !Common Femoral !Yes !Yes !None ! + +---- ------+ -+ + !Prox Femoral !Yes !Yes !None ! + +---- ------+ -+ + !Mid Femoral !Yes !Yes !None ! + +---- ------+ -+ + !Dist Femoral !Yes !Yes !None ! + +---- ------+ -+ + !Deep Femoral !Yes !Yes !None ! + +---- ------+ -+ + !Popliteal !Yes !Yes !None ! + +---- ------+ -+ + !Sapheno Femoral Junction !Yes !Yes !None ! + +---- ------+ -+ + !PTV !Yes !Yes !None ! + +---- ------+ -+ + !Peroneal !Yes !Yes !None ! + +---- ------+ -+ + !Gastroc !Yes !Yes !None ! + +---- ------+ -+ + !GSV Thigh !Yes !Yes !None ! + +---- ------+ -+ + !GSV Knee !Yes !Yes !None ! + +---- ------+ -+ + !GSV Ankle !Yes !Yes !None ! + +---- ------+ -+ + !SSV !Yes !Yes !None ! + +---- ------+ -+ + Right Doppler Measurements + -------+------+------ + + !Location !Signal!Reflux!Reflux (msec) ! + -------+------+------ + + !Common Femoral !Phasic! ! ! + -------+------+------ + + !Prox Femoral !Phasic! ! ! + -------+------+------ + + !Popliteal !Phasic! ! ! + -------+------+------ + + Left Lower Extremities DVT Study Measurements Left 2D Measurements + +---- ------+ -+ + !Location !Visualized!Compressi bility!Thrombosis! + +---- ------+ -+ + !Common Femoral !Yes !Yes !None ! + +---- ------+ -+ + !Prox Femoral !Yes !Yes !None ! + +---- ------+ -+ + !Mid Femoral !Yes !Yes !None ! + +---- ------+ -+ + !Dist Femoral !Yes !Yes !None ! + +---- ------+ -+ + !Deep Femoral !Yes !Yes !None ! + +---- ------+ -+ + !Popliteal !Yes !Yes !None ! + +---- ------+ -+ + !Sapheno Femoral Junction !Yes !Yes !None ! + +---- ------+ -+ + !PTV !Yes !Yes !None ! + +---- ------+ -+ + !Peroneal !Yes !Yes !None ! + +---- ------+ -+ + !Gastroc !Yes !Yes !None ! + +---- ------+ -+ + !GSV Thigh !Yes !Yes !None ! + +---- ------+ -+ + !GSV Knee !Yes !Yes !None ! + +---- ------+ -+ + !GSV Ankle !Yes !Yes !None ! + +---- ------+ -+ + !SSV !Yes !Yes !None ! + +---- ------+ -+ + Left Doppler Measurements + -------+------+------ + + !Location !Signal!Reflux!Reflux (msec) ! + -------+------+------ + + !Common Femoral !Phasic! ! ! + -------+------+------ + + !Prox Femoral !Phasic! ! ! + -------+------+------ + + !Popliteal !Phasic! ! ! + -------+------+------ + + [facility] [place], [place] Nav, Mhpn Incoming Cardio Results From Cpacs/Ge - 06/08/2019 6:36 PM EDT [facility] Vascular Lower Extremities DVT Study Procedure Patient Name LYDIA Date of Study 06/08/2019 EUNICE Alcantara Date of 1955 Gender Male Age 63 year(s) Race Black Room Number 0515 Height: 72 inch, 182.88 cm Corporate ID [id number] Weight: 220 pounds, 99.8 kg # Patient Acct [id number] BSA: 2.22 m^2 BMI: 29.84 kg/m^2 # MR # [id number] Attenuator Rina Frausto Interpreting Omer Oneil Physician Referring Referring Physician DYLON VICK APRN-[employer] M[employer] PROGRAMMER Nurse Practitioner Procedure Type of Study: Veins: Lower Extremities DVT Study, Venous Scan Lower Bilateral. Indications for Study:Hx of DVT. Patient Status:In Patient. Right Tech Comments:The common femoral, femoral, popliteal and tibial veins demonstrate normal compressibility and augmentation. Normal compressibility of the great saphenous vein. Normal compressibility of the small saphenous vein. Left Tech Comments:The common femoral, femoral, popliteal and tibial veins demonstrate normal compressibility and augmentation. Normal compressibility of the great saphenous vein. Normal compressibility of the small saphenous vein. Conclusions Summary Simultaneous real time imaging utilizing B-Mode, color doppler and spectral waveform analysis was performed on the bilateral lower extremities for venous examination of the deep and superficial systems. Findings are: Right: No evidence of deep or superficial venous thrombosis. Left: No evidence of deep or superficial venous thrombosis. Signature - - - - Findings: Right Impression: Left Impression: The common femoral, femoral, The common femoral, femoral, popliteal and tibial veins popliteal and tibial veins demonstrate normal compressibility demonstrate normal compressibility and augmentation. and augmentation. Normal compressibility of the great Normal compressibility of the great saphenous vein. saphenous vein. Normal compressibility of the small Normal compressibility of the small saphenous vein. saphenous vein. Risk Factors History +---------+----+----- + !Diagnosis!Date!Comme nts ! +---------+----+----- + !DVT ! !LT leg 7 yrs ago ! +---------+----+----- + - The patient's risk factor(s) include: insulin-treated diabetes mellitus, dyslipidemia and arterial hypertension. - The patient's last creatinine was 0.8 mg/dl. Allergies - Allergy:Penicillin(Dr suresh). Velocities are measured in cm/s ; Diameters are measured in cm Right Lower Extremities DVT Study Measurements Right 2D Measurements + +---- ------+ -+ + !Location !Visualized!Compressi bility!Thrombosis! + +---- ------+ -+ + !Common Femoral !Yes !Yes !None ! + +---- ------+ -+ + !Prox Femoral !Yes !Yes !None ! + +---- ------+ -+ + !Mid Femoral !Yes !Yes !None ! + +---- ------+ -+ + !Dist Femoral !Yes !Yes !None ! + +---- ------+ -+ + !Deep Femoral !Yes !Yes !None ! + +---- ------+ -+ + !Popliteal !Yes !Yes !None ! + +---- ------+ -+ + !Sapheno Femoral Junction !Yes !Yes !None ! + +---- ------+ -+ + !PTV !Yes !Yes !None ! + +---- ------+ -+ + !Peroneal !Yes !Yes !None ! + +---- ------+ -+ + !Gastroc !Yes !Yes !None ! + +---- ------+ -+ + !GSV Thigh !Yes !Yes !None ! + +---- ------+ -+ + !GSV Knee !Yes !Yes !None ! + +---- ------+ -+ + !GSV Ankle !Yes !Yes !None ! + +---- ------+ -+ + !SSV !Yes !Yes !None ! + +---- ------+ -+ + Right Doppler Measurements + -------+------+------ + + !Location !Signal!Reflux!Reflux (msec) ! + -------+------+------ + + !Common Femoral !Phasic! ! ! + -------+------+------ + + !Prox Femoral !Phasic! ! ! + -------+------+------ + + !Popliteal !Phasic! ! ! + -------+------+------ + + Left Lower Extremities DVT Study Measurements Left 2D Measurements + +---- ------+ -+ + !Location !Visualized!Rose Maryi bilelizabeth!Thrombosis! + +---- ------+ -+ + !Common Femoral !Yes !Yes !None ! + +---- ------+ -+ + !Prox Femoral !Yes !Yes !None ! + +---- ------+ -+ + !Mid Femoral !Yes !Yes !None ! + +---- ------+ -+ + !Dist Femoral !Yes !Yes !None ! + +---- ------+ -+ + !Deep Femoral !Yes !Yes !None ! + +---- ------+ -+ + !Popliteal !Yes !Yes !None ! + +---- ------+ -+ + !Sapheno Femoral Junction !Yes !Yes !None ! + +---- ------+ -+ + !PTV !Yes !Yes !None ! + +---- ------+ -+ + !Peroneal !Yes !Yes !None ! + +---- ------+ -+ + !Gastroc !Yes !Yes !None ! + +---- ------+ -+ + !GSV Thigh !Yes !Yes !None ! + +---- ------+ -+ + !GSV Knee !Yes !Yes !None ! + +---- ------+ -+ + !GSV Ankle !Yes !Yes !None ! + +---- ------+ -+ + !SSV !Yes !Yes !None ! + +---- ------+ -+ + Left Doppler Measurements + -------+------+------ + + !Location !Signal!Reflux!Reflux (msec) ! + -------+------+------ + + !Common Femoral !Phasic! ! ! + -------+------+------ + + !Prox Femoral !Phasic! ! ! + -------+------+------ + + !Popliteal !Phasic! ! ! + -------+------+------ + + [facility] Basic Metabolic Panelon 10- Anion gap [Moles/Vol] 12 mmol/L 9 - 17 mmol/L [facility] Bun/Cre Ratio NOT REPORTED [facility] Calcium [Mass/Vol] 9.3 mg/dL 8.6 - 10. 4 mg/dL [facility] Chloride [Moles/Vol] 97 mmol/L Low 98 - 10 7 mmol/L [facility] CO2 [Moles/Vol] 26 mmol/L 20 - 31 mmol/L [facility] Creatinine [Mass/Vol] 0.76 mg/dL 0.7 - 1.2 mg/dL [facility] GFR >60 >60 mL/min [facility] [place] GFR Non- >60 >60 mL/min [facility] GFR/1.73 sq M predicted among non-blacks MDRD (S/P/Bld) [Vol rate/Area] NOT REPORTED [facility] GFR/1.73 sq M predicted among non-blacks MDRD (S/P/Bld) [Vol rate/Area] [place], [place] Comment on above: Average GFR for 60-6 9 years old: 85 mL/min/1.73sq m Chronic Kidney Disease: <60 mL/min/1.73sq m Kidney failure: <15 mL/min/1.73sq m eGFR calculated using average adult body mass. Additional eGFR calculator available at: http://www.[employer]/multiple_crcl_2012.htm Glucose [Mass/Vol] 232 mg/dL High 70 - 99 mg/dL [place] Potassium [Moles/Vol] 3.4 mmol/L Low 3.7 - 5.3 mmol/L [place] Sodium [Moles/Vol] 135 mmol/L 135 - 144 mmol/L [place] Urea nitrogen [Mass/Vol] 8 mg/dL 8 - 23 mg/dL [place] Basic Metabolic Profon 06-07 (cont.) Normal [facility] Comment on above: Result Comment: Aver age GFR for 60-69 years old: 85 mL/min/1.73sq m Chronic Kidney Disease: <60 mL/min/1.73sq m Kidney failure: <15 mL/min/1.73sq m eGFR calculated using average adult body mass. Additional eGFR calculator available at: http://www.[employer]/Luxodo_crcl_2012.htm Performed By: ###Xena CURRAN #### [address] [place] [address] Environmental Technology Professor: Stas Irving MD Anion gap [Moles/Vol] 12 mmol/L Normal - [facility] Comment on above: Performed By: #### Ирина CURRAN #### [address] [place] [address] Environmental Technology Professor: Stas Irving MD Calcium [Mass/Vol] 9.3 mg/dL Normal 8.6-10.4 [facility] Comment on above: Performed By: #### Ирина LEMAKE #### [address] [address] Environmental Technology Professor: Stas Irving MD Chloride [Moles/Vol] 97 mmol/L Low 98-107 [facility] Comment on above: Performed By: #### S TROKE #### [address] [address] Environmental Technology Professor: Stas Irving MD CO2 [Moles/Vol] 26 mmol/L Normal 20-31 [facility] Comment on above: Performed By: #### S TROKE #### [address] [address] Environmental Technology Professor: Stas Irving MD Creatinine [Mass/Vol] 0.76 mg/dL Normal 0.70-1.20 [facility] Comment on above: Performed By: #### S TROKE #### [address] [address] Environmental Technology Professor: Stas Irving MD GFR, Amer >60 Normal >60 [facility] Comment on above: Performed By: #### S TROKE #### [address] [address] Environmental Technology Professor: Stas Irving MD GFR,non Amer >60 Normal >60 [facility] Comment on above: Performed By: #### S TROKE #### [address] [address] Environmental Technology Professor: Stas Irving MD Glucose [Mass/Vol] 232 mg/dL High 70-99 [facility] Comment on above: Performed By: #### S TROKE #### [address] [address] Environmental Technology Professor: Stas Irving MD Potassium [Moles/Vol] 3.4 mmol/L Low 3.7-5.3 [facility] Comment on above: Performed By: #### S TOREYKE #### [facility] [place] [address] Environmental Technology Professor: Stas Irving MD Sodium [Moles/Vol] 135 mmol/L Normal 135-144 [facility] Comment on above: Performed By: #### S TOREYKE #### [facility] [address] [place] [address] Environmental Technology Professor: Stas Irving MD Urea nitrogen [Mass/Vol] 8 mg/dL Normal 8-23 [facility] Comment on above: Performed By: #### S TOREYKE #### [facility] [employer] [address] [place] [address] Environmental Technology Professor: Stas Irving MD BUN/CRE Ratio NOT REPORTED Normal 9-20 [facility] Comment on above: Performed By: #### S TOREYKE #### [facility] [address] [place] [address] Environmental Technology Professor: Stas Irving MD Staging: NOT REPORTED Normal [facility] Comment on above: Performed By: #### S TROKE #### [facility] [employer] [address] [place] [address] Environmental Technology Professor: Stas Irving MD CBC Auto Differentialon 05-22 Basophils (Bld) [#/Vol] 0.08 10*3/uL [place] Basophils/100 WBC (Bld) 1 % 0 - 2 % [place] Differential Type NOT REPORTED [place] Eosinophils (Bld) [#/Vol] 0.59 10*3/uL High [place] Eosinophils/100 WBC (Bld) 8 % High 1 - 4 % [place] Erythrocyte distribution width (RBC) [Ratio] 13.6 % 11.8 - 14.4 % [place] Hematocrit (Bld) [Volume fraction] 51.5 % High 40.7 - 50.3 % [place] Hemoglobin (Bld) [Mass/Vol] 16.7 g/dL 13 - 17 g/dL [place] Immature granulocytes (Bld) [#/Vol] 0 % 0 [place] Immature granulocytes (Bld) [#/Vol] 10*3/uL [place] Interpretation and review of laboratory results Abnormal [place] Lymphocytes (Bld) [#/Vol] 2.32 10*3/uL [place] Lymphocytes/100 WBC (Bld) 32 % 24 - 43 % [place] MCH (RBC) [Entitic mass] 28.2 pg 25.2 - 33.5 pg [place] MCHC (RBC) [Mass/Vol] 32.4 g/dL 28.4 - 34.8 g/dL [place] MCV (RBC) [Entitic vol] 86.8 fL 82.6 - 102.9 fL [place] Monocytes (Bld) [#/Vol] 0.66 10*3/uL [place] Monocytes/100 WBC (Bld) 9 % 3 - 12 % [place] Platelet mean volume (Bld) [Entitic vol] 10.9 fL 8.1 - 13.5 fL [place] Platelets (Bld) [#/Vol] 196 10*3/uL [place] Platelets (Bld) [#/Vol] NOT REPORTED [place] RBC (Bld) [#/Vol] 5.93 10*6/uL High 4.21 - 5.7 7 m/uL [place] RBC morphology finding Nom (Bld) NOT REPORTED [place] Segmented neutrophils/100 WBC (Bld) 50 % 36 - 65 % [place] Segs Absolute 3.69 [place] WBC (Bld) [#/Vol] 7.4 10*3/uL [place] WBC (Bld) [#/Vol] 0.0 10*3/uL 0.0 per 10 0 WBC [place] WBC Morphology NOT REPORTED [place] CBC with Diffon 06-07-2019 Abs. Basophil 0.08 k/uL Normal 0.00-0.20 [facility] Comment on above: Performed By: #### S MAGDY #### [address] [address] Environmental Technology Professor: Stas Irving MD Abs.Imm.Granulocyte <0.03 Normal 0.00-0.30 [facility] Comment on above: Performed By: #### S MAGDY #### [address] [address] Environmental Technology Professor: Stas Irving MD Abs.Neutrophil (Seg) 3.69 k/uL Normal 1.50-8.10 [facility] Comment on above: Performed By: #### S MAGDY #### [address] [address] Environmental Technology Professor: Stas Irving MD Basophils/100 WBC (Bld) 1 % Normal 0-2 [facility] Comment on above: Performed By: #### Ирина CURRAN #### [address] [address] Environmental Technology Professor: Stas Irving MD Eosinophils (Bld) [#/Vol] 0.59 10*3/uL High 0.00-0.44 [facility] Comment on above: Performed By: #### S MAGDY #### [address] [address] Environmental Technology Professor: Stas Irving MD Eosinophils/100 WBC (Bld) 8 % High 1-4 [facility] Comment on above: Performed By: #### S MAGDY #### [address] [address] Environmental Technology Professor: Stas Irving MD Erythrocyte distribution width (RBC) [Ratio] 13.6 % Normal 11.8-14.4 [facility] Comment on above: Performed By: #### S TROKE #### [address] [address] Environmental Technology Professor: Stas Irving MD Hematocrit (Bld) [Volume fraction] 51.5 % High 40.7-50.3 [facility] Comment on above: Performed By: #### S TROKE #### [address] [address] Environmental Technology Professor: Stas Irving MD Hemoglobin (Bld) [Mass/Vol] 16.7 g/dL Normal 13.0-17.0 [facility] Comment on above: Performed By: #### S TROKE #### [address] [address] Environmental Technology Professor: Stas Irving MD Immature granulocytes (Bld) [#/Vol] 0 % Normal 0 [facility] Comment on above: Performed By: #### S TROKE #### [address] [address] Environmental Technology Professor: Stas Irving MD Lymphocytes (Bld) [#/Vol] 2.32 10*3/uL Normal 1.10-3.70 [facility] Comment on above: Performed By: #### S TROKE #### [address] [address] Environmental Technology Professor: Stas Irving MD Lymphocytes/100 WBC (Bld) 32 % Normal 24-43 [facility] Comment on above: Performed By: #### S TROKE #### [address] [address] Environmental Technology Professor: Stas Irving MD MCH (RBC) [Entitic mass] 28.2 pg Normal 25.2-33.5 [facility] Comment on above: Performed By: #### S TROKE #### [address] [address] Environmental Technology Professor: Stas Irving MD MCHC (RBC) [Mass/Vol] 32.4 g/dL Normal 28.4-34.8 [facility] Comment on above: Performed By: #### S TOREYKE #### [address] [address] Environmental Technology Professor: Stas Irving MD MCV (RBC) [Entitic vol] 86.8 fL Normal 82.6-102.9 [facility] Comment on above: Performed By: #### S MAGDY #### [address] [address] Environmental Technology Professor: Stas Irving MD Monocytes (Bld) [#/Vol] 0.66 10*3/uL Normal 0.10-1.20 [facility] Comment on above: Performed By: #### S MAGDY #### [address] [address] Environmental Technology Professor: Stas Irving MD Monocytes/100 WBC (Bld) 9 % Normal 3-12 [facility] Comment on above: Performed By: #### S MAGDY #### [address] [address] Environmental Technology Professor: Stas Irving MD Neutrophil (Seg) 50 % Normal 36-65 [facility] Comment on above: Performed By: #### S TOREYKE #### [address] [address] Environmental Technology Professor: Stas Irving MD NRBC Automated 0.0 per 100 WBC Normal 0.0 [facility] Comment on above: Performed By: #### S TOREYKE #### [address] [address] Environmental Technology Professor: Stas Irving MD Platelet mean volume (Bld) [Entitic vol] 10.9 fL Normal 8.1-13.5 [facility] Comment on above: Performed By: #### S TROKE #### [address] [address] Environmental Technology Professor: Stas Irving MD Platelets (Bld) [#/Vol] 196 10*3/uL Normal 138-453 [facility] Comment on above: Performed By: #### S TROKE #### [address] [address] Environmental Technology Professor: Stas Irving MD RBC (Bld) [#/Vol] 5.93 10*6/uL High 4.21-5.77 [facility] Comment on above: Performed By: #### S TROKE #### [address] [address] Environmental Technology Professor: Stas Irving MD WBC (Bld) [#/Vol] 7.4 10*3/uL Normal 3.5-11.3 [facility] Comment on above: Performed By: #### S TROKE #### [address] [address] Environmental Technology Professor: Stas Irving MD Auto Diff Performed NOT REPORTED Normal [facility] Comment on above: Performed By: #### S TROKE #### [address] [address] Environmental Technology Professor: Stas Irving MD Platelets (Bld) [#/Vol] NOT REPORTED Normal [facility] Comment on above: Performed By: #### S TROKE #### [address] [address] Environmental Technology Professor: Stas Irving MD RBC morphology finding Nom (Bld) NOT REPORTED Normal [facility] Comment on above: Performed By: #### S TROKE #### [address] [address] Environmental Technology Professor: Stas Irving MD WBC Morphology NOT REPORTED Normal [facility] Comment on above: Performed By: #### S MAGDY #### [facility] [employer] [address] [place] [address] Environmental Technology Professor: Stas Irving MD CT HEAD WO CONTRASTon 2018 CT HEAD WO CONTRAST EXAMINATION: CT OF THE HEAD WITHOUT CONTRAST 06/06/2019 8:58 pm TECHNIQUE: CT of the head was performed without the administration of intravenous contrast. Dose modulation, iterative reconstruction, and/or weight based adjustment of the mA/kV was utilized to reduce the radiation dose to as low as reasonably achievable. COMPARISON: CTA brain 06/05/2019. CT brain without contrast 06/05/2019. HISTORY: ORDERING SYSTEM PROVIDED HISTORY: STROKE TECHNOLOGIST PROVIDED HISTORY: Obtain 24 hours after administration of tPA Reason for Exam: 24hr post tpa follow up Acuity: Unknown Type of Exam: Unknown FINDINGS: Skull/soft tissue: Normal bone mineral density. Redemonstration of extensive chronic paranasal sinusitis with no air-fluid levels. The bilateral mastoid air cells are patent. Intracranial contents: No midline shift. Stable left parietal wedge-shaped encephalomalacia consistent with remote infarct. Stable bilateral semicentrum ovale and basal ganglia lacunar infarcts. The ventricular and cisternal spaces appear stable. The rest of the last-white interface is intact. No acute intracranial hemorrhage. IMPRESSION: 1. No evidence of an acute evolving infarct. 2. No acute intracranial hemorrhage or global mass effect. 3. Redemonstration of multifocal remote infarcts. Interpreted by: Randolph Bustos MD Signed by: Randolph Bustos MD 06/06/19 Final result Normal [facility] MAGNESIUMon 06-07-2019 Magnesium [Mass/Vol] 1.9 mg/dL 1.6 - 2 .6 mg/dL [facility] MRI BRAIN WO CONTRASTon 05-22 MRI BRAIN WO CONTRAST EXAMINATION: MRI OF THE BRAIN WITHOUT CONTRAST 06/07/2019 9:51 am TECHNIQUE: Multiplanar multisequence MRI of the brain was performed without the administration of intravenous contrast. COMPARISON: CT head on June 06, 2019. CTA head on June 05, 2019. HISTORY: ORDERING SYSTEM PROVIDED HISTORY: stroke FINDINGS: INTRACRANIAL STRUCTURES/VENTRICLES : Small area of restricted diffusion within right periventricular white matter extending into the right basal ganglia. No evidence of associated susceptibility signal to suggest intracranial hemorrhage. Encephalomalacia within left parietal lobe with hemosiderin deposits. This most likely represents sequela of a previous infarct with hemosiderin deposits. There is adjacent area of gliosis. There are chronic appearing lacunar infarcts bilaterally. Mild amount of chronic small vessel ischemic white matter disease. Mild diffuse cerebral volume loss. No evidence of obstructive hydrocephalus. No evidence of midline shift. The basal cisterns are patent. ORBITS: The visualized portion of the orbits demonstrate no acute abnormality. SINUSES: Extensive paranasal sinuses, with severe mucosal thickening within all paranasal sinuses. Small amount of air-fluid level within the bilateral sphenoid sinuses. Nonspecific bilateral mastoid opacification. Small amount of fluid within the petrous apex on the left. BONES/SOFT TISSUES: No significant abnormalities. IMPRESSION: 1. Small area of restricted diffusion within right periventricular white matter and right basal ganglia, most compatible with acute infarcts. 2. Encephalomalacia and gliosis within left parietal lobe with hemosiderin deposits. This is most likely sequela of chronic infarct. 3. Chronic lacunar infarcts within bilateral basal ganglia. Chronic small vessel ischemic white matter disease and diffuse cerebral volume loss. 4. Extensive paranasal sinus disease, as detailed above. Correlate with symptoms of sinusitis. 5. Nonspecific bilateral mastoid opacification. Small amount of fluid within the left petrous apex. Correlate with symptoms of mastoiditis. The findings were sent to the Radiology Results Communication Center at 11:16 am on 06/07/2019to be communicated to a licensed caregiver. Interpreted by: Cas Berger MD Signed by: Cas Berger MD 06/07/19 Final result Normal [facility] MRI Brain WO Contraston 05-22 1. Small area of restricted diffusion within right periventricular white matter and right basal ganglia, most compatible with acute infarcts. 2. Encephalomalacia and gliosis within left parietal lobe with hemosiderin deposits. This is most likely sequela of chronic infarct. 3. Chronic lacunar infarcts within bilateral basal ganglia. Chronic small vessel ischemic white matter disease and diffuse cerebral volume loss. 4. Extensive paranasal sinus disease, as detailed above. Correlate with symptoms of sinusitis. 5. Nonspecific bilateral mastoid opacification. Small amount of fluid within the left petrous apex. Correlate with symptoms of mastoiditis. The findings were sent to the Radiology Results Communication Center at 11:16 am on 06/07/2019to be communicated to a licensed caregiver. [facility] OF THE BRAIN WITHOUT CONTRAST 06/07/2019 9:51 am TECHNIQUE: Multiplanar multisequence MRI of the brain was performed without the administration of intravenous contrast. COMPARISON: CT head on June 06, 2019. CTA head on June 05, 2019. HISTORY: ORDERING SYSTEM PROVIDED HISTORY: stroke FINDINGS: INTRACRANIAL STRUCTURES/VENTRICLES : Small area of restricted diffusion within right periventricular white matter extending into the right basal ganglia. No evidence of associated susceptibility signal to suggest intracranial hemorrhage. Encephalomalacia within left parietal lobe with hemosiderin deposits. This most likely represents sequela of a previous infarct with hemosiderin deposits. There is adjacent area of gliosis. There are chronic appearing lacunar infarcts bilaterally. Mild amount of chronic small vessel ischemic white matter disease. Mild diffuse cerebral volume loss. No evidence of obstructive hydrocephalus. No evidence of midline shift. The basal cisterns are patent. ORBITS: The visualized portion of the orbits demonstrate no acute abnormality. SINUSES: Extensive paranasal sinuses, with severe mucosal thickening within all paranasal sinuses. Small amount of air-fluid level within the bilateral sphenoid sinuses. Nonspecific bilateral mastoid opacification. Small amount of fluid within the petrous apex on the left. BONES/SOFT TISSUES: No significant abnormalities. [facility], [facility] Incoming Radiant Results From [employer] - 06/07/2019 11:19 AM EDT EXAMINATION: MRI OF THE BRAIN WITHOUT CONTRAST 06/07/2019 9:51 am TECHNIQUE: Multiplanar multisequence MRI of the brain was performed without the administration of intravenous contrast. COMPARISON: CT head on June 06, 2019. CTA head on June 05, 2019. HISTORY: ORDERING SYSTEM PROVIDED HISTORY: stroke FINDINGS: INTRACRANIAL STRUCTURES/VENTRICLES : Small area of restricted diffusion within right periventricular white matter extending into the right basal ganglia. No evidence of associated susceptibility signal to suggest intracranial hemorrhage. Encephalomalacia within left parietal lobe with hemosiderin deposits. This most likely represents sequela of a previous infarct with hemosiderin deposits. There is adjacent area of gliosis. There are chronic appearing lacunar infarcts bilaterally. Mild amount of chronic small vessel ischemic white matter disease. Mild diffuse cerebral volume loss. No evidence of obstructive hydrocephalus. No evidence of midline shift. The basal cisterns are patent. ORBITS: The visualized portion of the orbits demonstrate no acute abnormality. SINUSES: Extensive paranasal sinuses, with severe mucosal thickening within all paranasal sinuses. Small amount of air-fluid level within the bilateral sphenoid sinuses. Nonspecific bilateral mastoid opacification. Small amount of fluid within the petrous apex on the left. BONES/SOFT TISSUES: No significant abnormalities. IMPRESSION: 1. Small area of restricted diffusion within right periventricular white matter and right basal ganglia, most compatible with acute infarcts. 2. Encephalomalacia and gliosis within left parietal lobe with hemosiderin deposits. This is most likely sequela of chronic infarct. 3. Chronic lacunar infarcts within bilateral basal ganglia. Chronic small vessel ischemic white matter disease and diffuse cerebral volume loss. 4. Extensive paranasal sinus disease, as detailed above. Correlate with symptoms of sinusitis. 5. Nonspecific bilateral mastoid opacification. Small amount of fluid within the left petrous apex. Correlate with symptoms of mastoiditis. The findings were sent to the Radiology Results Communication Center at 11:16 am on 06/07/2019to be communicated to a licensed caregiver. [place] Magnesiumon 06-07-2019 Magnesium [Mass/Vol] 1.9 mg/dL Normal 1.6-2.6 [facility] Comment on above: Performed By: #### S MAGDY #### [facility] [employer] [address] [place] [address] Environmental Technology Professor: Stas Irving MD Otheron 06-07-2019 Interpretation and review of laboratory results Abnormal [place] PHOSPHORUSon 06-07-2019 Phosphate [Mass/Vol] 5.4 mg/dL High 2.5 - 4 .5 mg/dL [place] POC Glucose Fingerstickon Glucose [Mass/Vol] 309 mg/dL High 75 - 110 mg/dL [place] Interpretation and review of laboratory results Abnormal [place] Glucose [Mass/Vol] 330 mg/dL High 75 - 110 mg/dL [place] Interpretation and review of laboratory results Abnormal [place] Glucose [Mass/Vol] 251 mg/dL High 75 - 110 mg/dL [place] Interpretation and review of laboratory results Abnormal [place] Glucose [Mass/Vol] 273 mg/dL High 75 - 110 mg/dL [place] Interpretation and review of laboratory results Abnormal [place] Phosphorus, Inorg.on 06-07- 019 Phosphorus, Inorg. 5.4 mg/dL High 2.5-4.5 [facility] [facility] Comment on above: Performed By: #### S TROKE #### [facility] [employer] [address] [place] [address] Environmental Technology Professor: Stas Irving MD BASIC METABOLIC PANELon 05-22 Anion gap [Moles/Vol] 16 mmol/L 9 - 17 mmol/L [place] Bun/Cre Ratio NOT REPORTED [place] Calcium [Mass/Vol] 9.2 mg/dL 8.6 - 10. 4 mg/dL [place] Chloride [Moles/Vol] 101 mmol/L 98 - 10 7 mmol/L [place] CO2 [Moles/Vol] 20 mmol/L 20 - 31 mmol/L [place] Creatinine [Mass/Vol] 0.48 mg/dL Low 0.7 - 1.2 mg/dL [place] GFR >60 >60 mL/min [place] GFR Non- >60 >60 mL/min [place] GFR/1.73 sq M predicted among non-blacks MDRD (S/P/Bld) [Vol rate/Area] NOT REPORTED [place] GFR/1.73 sq M predicted among non-blacks MDRD (S/P/Bld) [Vol rate/Area] [place] Comment on above: Average GFR for 60-6 9 years old: 85 mL/min/1.73sq m Chronic Kidney Disease: <60 mL/min/1.73sq m Kidney failure: <15 mL/min/1.73sq m eGFR calculated using average adult body mass. Additional eGFR calculator available at: http://www.[employer]/multiple_crcl_2012.htm Glucose [Mass/Vol] 264 mg/dL High 70 - 99 mg/dL [place] Potassium [Moles/Vol] 3.9 mmol/L 3.7 - 5.3 mmol/L [place] Sodium [Moles/Vol] 137 mmol/L 135 - 144 mmol/L [place] Urea nitrogen [Mass/Vol] 5 mg/dL Low 8 - 23 mg/dL [place] Basic Metabolic Profon 06-06 (cont.) Normal [facility] Comment on above: Result Comment: Aver age GFR for 60-69 years old: 85 mL/min/1.73sq m Chronic Kidney Disease: <60 mL/min/1.73sq m Kidney failure: <15 mL/min/1.73sq m eGFR calculated using average adult body mass. Additional eGFR calculator available at: http://www.[employer]/multiple_crcl_2012.htm Performed By: #### C DP, BMP, LIPR, MG, CINTHYA, GLYHGB #### [employer] [address] [place] [address] Environmental Technology Professor: Stas Irving MD Anion gap [Moles/Vol] 16 mmol/L Normal 9-17 [facility] Comment on above: Performed By: #### C DP, BMP, LIPR, MG, CINTHYA, GLYHGB #### [facility] [address] [place] [address] [phone] Environmental Technology Professor: Stas Irving MD Calcium [Mass/Vol] 9.2 mg/dL Normal 8.6-10.4 [facility] Comment on above: Performed By: #### C DP, BMP, LIPR, MG, CINTHYA, GLYHGB #### [facility] [employer] [address] [place] [address] [phone] Environmental Technology Professor: Stas Irving MD Chloride [Moles/Vol] 101 mmol/L Normal 98-107 [facility] Comment on above: Performed By: #### C DP, BMP, LIPR, MG, CINTHYA, GLYHGB #### [address] [address] Environmental Technology Professor: Stas Irving MD CO2 [Moles/Vol] 20 mmol/L Normal 20-31 [facility] Comment on above: Performed By: #### C DP, BMP, LIPR, MG, CINTHYA, GLYHGB #### [address] [address] Environmental Technology Professor: Stas Irving MD Creatinine [Mass/Vol] 0.48 mg/dL Low 0.70-1.20 [facility] Comment on above: Performed By: #### C DP, BMP, LIPR, MG, CINTHYA, GLYHGB #### [address] [address] Environmental Technology Professor: Stas Irving MD GFR, Amer >60 Normal >60 [facility] Comment on above: Performed By: #### C DP, BMP, LIPR, MG, CINTHYA, GLYHGB #### [address] [phone] Environmental Technology Professor: Stas Irving MD GFR,non Amer >60 Normal >60 [facility] Comment on above: Performed By: #### C DP, BMP, LIPR, MG, CINTHYA, GLYHGB #### [address] [address] Environmental Technology Professor: Stas Irving MD Glucose [Mass/Vol] 264 mg/dL High 70-99 [facility] Comment on above: Performed By: #### C DP, BMP, LIPR, MG, CINTHYA, GLYHGB #### [address] [address] Environmental Technology Professor: Stas Irving MD Potassium [Moles/Vol] 3.9 mmol/L Normal 3.7-5.3 [facility] Comment on above: Performed By: #### C DP, BMP, LIPR, MG, CINTHYA, GLYHGB #### [facility] [address] [place] [address] [phone] Environmental Technology Professor: Stas Irving MD Sodium [Moles/Vol] 137 mmol/L Normal 135-144 [facility] Comment on above: Performed By: #### C DP, BMP, LIPR, MG, CINTHYA, GLYHGB #### [facility] [employer] [address] [place] [address] [phone] Environmental Technology Professor: Stas Irving MD Urea nitrogen [Mass/Vol] 5 mg/dL Low - [facility] Comment on above: Performed By: #### C DP, BMP, LIPR, MG, CINTHYA, GLYHGB #### [facility] [employer] [address] [place] [address] [phone] Environmental Technology Professor: Stas Irving MD BUN/CRE Ratio NOT REPORTED Normal 05-11 [facility] Comment on above: Performed By: #### C DP, BMP, LIPR, MG, CINTHYA, GLYHGB #### [facility] [employer] [address] [place] [address] [phone] Environmental Technology Professor: Stas Irving MD Staging: NOT REPORTED Normal [facility] Comment on above: Performed By: #### C DP, BMP, LIPR, MG, CINTHYA, GLYHGB #### [facility] [employer] [address] [place] [address] [phone] Environmental Technology Professor: Stas Irving MD CBC WITH AUTO DIFFERENTIALon 06-06-2019 Basophils (Bld) [#/Vol] 0.08 10*3/uL [place] Basophils/100 WBC (Bld) 1 % 0 - 2 % [place] Differential Type NOT REPORTED [place] Eosinophils (Bld) [#/Vol] 0.62 10*3/uL [place] Eosinophils/100 WBC (Bld) 9 % High 1 - 4 % [place] Erythrocyte distribution width (RBC) [Ratio] 13.8 % 11.8 - 14.4 % [place] Hematocrit (Bld) [Volume fraction] 49.9 % 40.7 - 50.3 % [place] Hemoglobin (Bld) [Mass/Vol] 16.4 g/dL 13 - 17 g/dL [place] Immature granulocytes (Bld) [#/Vol] 10*3/uL [place] Immature granulocytes (Bld) [#/Vol] 0 % 0 [place] Interpretation and review of laboratory results Abnormal [place] Lymphocytes (Bld) [#/Vol] 2.13 10*3/uL [place] Lymphocytes/100 WBC (Bld) 29 % 24 - 43 % [place] MCH (RBC) [Entitic mass] 28.6 pg 25.2 - 33.5 pg [place] MCHC (RBC) [Mass/Vol] 32.9 g/dL 28.4 - 34.8 g/dL [place] MCV (RBC) [Entitic vol] 86.9 fL 82.6 - 102.9 fL [place] Monocytes (Bld) [#/Vol] 0.62 10*3/uL [place] Monocytes/100 WBC (Bld) 9 % 3 - 12 % [place] Platelet mean volume (Bld) [Entitic vol] 10.1 fL 8.1 - 13.5 fL [place] Platelets (Bld) [#/Vol] 221 10*3/uL [place] Platelets (Bld) [#/Vol] NOT REPORTED [place] RBC (Bld) [#/Vol] 5.74 10*6/uL 4.21 - 5.7 7 m/uL [place] RBC morphology finding Nom (Bld) NOT REPORTED [place] Segmented neutrophils/100 WBC (Bld) 52 % 36 - 65 % [place] Segs Absolute 3.86 [place] WBC (Bld) [#/Vol] 0.0 10*3/uL 0.0 per 10 0 WBC [place] WBC (Bld) [#/Vol] 7.3 10*3/uL [place] WBC Morphology NOT REPORTED [place] CBC with Diffon 06-06-2019 Abs. Basophil 0.08 k/uL Normal 0.00-0.20 [facility] Comment on above: Performed By: #### C DP, BMP, LIPR, MG, CINTHYA, GLYHGB #### [facility] [employer] [address] [place] [phone] Environmental Technology Professor: Stas Irving MD Abs.Imm.Granulocyte <0.03 Normal 0.00-0.30 [facility] Comment on above: Performed By: #### C DP, BMP, LIPR, MG, CINTHYA, GLYHGB #### [facility] [employer] [address] [place] [address] Environmental Technology Professor: Stas Irving MD Abs.Neutrophil (Seg) 3.86 k/uL Normal 1.50-8.10 [facility] Comment on above: Performed By: #### C DP, BMP, LIPR, MG, CINTHYA, GLYHGB #### [facility] [employer] [address] [place] [phone] Environmental Technology Professor: Stas Irving MD Basophils/100 WBC (Bld) 1 % Normal 0-2 [facility] Comment on above: Performed By: #### C DP, BMP, LIPR, MG, CINTHYA, GLYHGB #### [facility] [employer] [address] [place] [phone] Environmental Technology Professor: Stas Irving MD Eosinophils (Bld) [#/Vol] 0.62 10*3/uL High 0.00-0.44 [facility] Comment on above: Performed By: #### C DP, BMP, LIPR, MG, CINTHYA, GLYHGB #### [facility] [employer] [address] [place] [phone] Environmental Technology Professor: Stas Irving MD Eosinophils/100 WBC (Bld) 9 % High 1-4 [facility] Comment on above: Performed By: #### C DP, BMP, LIPR, MG, CINTHYA, GLYHGB #### [facility] [employer] [address] [place] [phone] Environmental Technology Professor: Stas Irving MD Erythrocyte distribution width (RBC) [Ratio] 13.8 % Normal 11.8-14.4 [facility] Comment on above: Performed By: #### C DP, BMP, LIPR, MG, CINTHYA, GLYHGB #### [place] [address] Environmental Technology Professor: Stas Irving MD Hematocrit (Bld) [Volume fraction] 49.9 % Normal 40.7-50.3 [facility] Comment on above: Performed By: #### C DP, BMP, LIPR, MG, CINTHYA, GLYHGB #### [facility] [employer] [address] [place] [address] Environmental Technology Professor: Stas Irving MD Hemoglobin (Bld) [Mass/Vol] 16.4 g/dL Normal 13.0-17.0 [facility] Comment on above: Performed By: #### C DP, BMP, LIPR, MG, CINTHYA, GLYHGB #### [place] [address] Environmental Technology Professor: Stas Irving MD Immature granulocytes (Bld) [#/Vol] 0 % Normal 0 [facility] Comment on above: Performed By: #### C DP, BMP, LIPR, MG, CINTHYA, GLYHGB #### [place] [address] Environmental Technology Professor: Stas Irving MD Lymphocytes (Bld) [#/Vol] 2.13 10*3/uL Normal 1.10-3.70 [facility] Comment on above: Performed By: #### C DP, BMP, LIPR, MG, CINTHYA, GLYHGB #### [address] [address] Environmental Technology Professor: Stas Irving MD Lymphocytes/100 WBC (Bld) 29 % Normal 24-43 [facility] Comment on above: Performed By: #### C DP, BMP, LIPR, MG, CINTHYA, GLYHGB #### [address] [address] Environmental Technology Professor: Stas Irving MD MCH (RBC) [Entitic mass] 28.6 pg Normal 25.2-33.5 [facility] Comment on above: Performed By: #### C DP, BMP, LIPR, MG, CINTHYA, GLYHGB #### [address] [address] Environmental Technology Professor: Stas Irving MD MCHC (RBC) [Mass/Vol] 32.9 g/dL Normal 28.4-34.8 [facility] Comment on above: Performed By: #### C DP, BMP, LIPR, MG, CINTHYA, GLYHGB #### [place] [address] Environmental Technology Professor: Stas Irving MD MCV (RBC) [Entitic vol] 86.9 fL Normal 82.6-102.9 [facility] Comment on above: Performed By: #### C DP, BMP, LIPR, MG, CINTHYA, GLYHGB #### [address] [address] Environmental Technology Professor: Stas Irving MD Monocytes (Bld) [#/Vol] 0.62 10*3/uL Normal 0.10-1.20 [facility] Comment on above: Performed By: #### C DP, BMP, LIPR, MG, CINTHYA, GLYHGB #### [address] [address] Environmental Technology Professor: Stas Irving MD Monocytes/100 WBC (Bld) 9 % Normal 3-12 [facility] Comment on above: Performed By: #### C DP, BMP, LIPR, MG, CINTHYA, GLYHGB #### [address] [address] Environmental Technology Professor: Stas Irving MD Neutrophil (Seg) 52 % Normal 36-65 [facility] Comment on above: Performed By: #### C DP, BMP, LIPR, MG, CINTHYA, GLYHGB #### [facility] [employer] [address] [place] [phone] Environmental Technology Professor: Stas Irving MD NRBC Automated 0.0 per 100 WBC Normal 0.0 [facility] Comment on above: Performed By: #### C DP, BMP, LIPR, MG, CINTHYA, GLYHGB #### [address] [address] Environmental Technology Professor: Stas Irving MD Platelet mean volume (Bld) [Entitic vol] 10.1 fL Normal 8.1-13.5 [facility] Comment on above: Performed By: #### C DP, BMP, LIPR, MG, CINTHYA, GLYHGB #### [address] [address] Environmental Technology Professor: Stas Irving MD Platelets (Bld) [#/Vol] 221 10*3/uL Normal 138-453 [facility] Comment on above: Performed By: #### C DP, BMP, LIPR, MG, CINTHYA, GLYHGB #### [address] [address] Environmental Technology Professor: Stas Irving MD RBC (Bld) [#/Vol] 5.74 10*6/uL Normal 4.21-5.77 [facility] Comment on above: Performed By: #### C DP, BMP, LIPR, MG, CINTHYA, GLYHGB #### [address] [address] Environmental Technology Professor: Stas Irving MD WBC (Bld) [#/Vol] 7.3 10*3/uL Normal 3.5-11.3 [facility] Comment on above: Performed By: #### C DP, BMP, LIPR, MG, CINTHYA, GLYHGB #### [address] [address] Environmental Technology Professor: Stas Irving MD Auto Diff Performed NOT REPORTED Normal [facility] Comment on above: Performed By: #### C DP, BMP, LIPR, MG, CINTHYA, GLYHGB #### [address] [address] Environmental Technology Professor: Stas Irving MD Platelets (Bld) [#/Vol] NOT REPORTED Normal [facility] Comment on above: Performed By: #### C DP, BMP, LIPR, MG, CINTHYA, GLYHGB #### [address] [address] Environmental Technology Professor: Stas Irving MD RBC morphology finding Nom (Bld) NOT REPORTED Normal [facility] Comment on above: Performed By: #### C DP, BMP, LIPR, MG, CINTHYA, GLYHGB #### [address] [address] Environmental Technology Professor: Stas Irving MD WBC Morphology NOT REPORTED Normal [facility] Comment on above: Performed By: #### C DP, BMP, LIPR, MG, CINTHYA, GLYHGB #### [address] [address] Environmental Technology Professor: Stas Irving MD CT HEAD WO CONTRASTon 2018 CT HEAD WO CONTRAST EXAMINATION: CT OF THE HEAD WITHOUT CONTRAST 06/05/2019 9:45 pm TECHNIQUE: CT of the head was performed without the administration of intravenous contrast. Dose modulation, iterative reconstruction, and/or weight based adjustment of the mA/kV was utilized to reduce the radiation dose to as low as reasonably achievable. COMPARISON: None. HISTORY: ORDERING SYSTEM PROVIDED HISTORY: CVA TECHNOLOGIST PROVIDED HISTORY: Reason for Exam: stroke Acuity: Unknown Type of Exam: Unknown FINDINGS: BRAIN/VENTRICLES: There is no acute intracranial hemorrhage, mass effect or midline shift. No abnormal extra-axial fluid collection. The last-white differentiation is maintained without evidence of an acute infarct. There is no evidence of hydrocephalus. 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 Remote infarct left parietal temporal cortex. ORBITS: The visualized portion of the orbits demonstrate no acute abnormality. SINUSES: Pansinusitis. SOFT TISSUES/SKULL: No acute abnormality of the visualized skull or soft tissues. IMPRESSION: No acute intracranial abnormality. 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 Pansinusitis. RECOMMENDATIONS: The findings were sent to the Radiology Results Communication Center at 10:13 pm on 06/05/2019to be communicated to a licensed caregiver. Discussed with Dr. Son at 10:14 p.m.. Interpreted by: Juan C Goyal MD Signed by: Juan C Goyal MD 06/05/19 Final result Normal [facility] CT head without contraston 1 Nav, [facility] Incoming Radiant Results From [employer] - 06/06/2019 10:31 PM EDT EXAMINATION: CT OF THE HEAD WITHOUT CONTRAST 06/06/2019 8:58 pm TECHNIQUE: CT of the head was performed without the administration of intravenous contrast. Dose modulation, iterative reconstruction, and/or weight based adjustment of the mA/kV was utilized to reduce the radiation dose to as low as reasonably achievable. COMPARISON: CTA brain 06/05/2019. CT brain without contrast 06/05/2019. HISTORY: ORDERING SYSTEM PROVIDED HISTORY: STROKE TECHNOLOGIST PROVIDED HISTORY: Obtain 24 hours after administration of tPA Reason for Exam: 24hr post tpa follow up Acuity: Unknown Type of Exam: Unknown FINDINGS: Skull/soft tissue: Normal bone mineral density. Redemonstration of extensive chronic paranasal sinusitis with no air-fluid levels. The bilateral mastoid air cells are patent. Intracranial contents: No midline shift. Stable left parietal wedge-shaped encephalomalacia consistent with remote infarct. Stable bilateral semicentrum ovale and basal ganglia lacunar infarcts. The ventricular and cisternal spaces appear stable. The rest of the last-white interface is intact. No acute intracranial hemorrhage. IMPRESSION: 1. No evidence of an acute evolving infarct. 2. No acute intracranial hemorrhage or global mass effect. 3. Redemonstration of multifocal remote infarcts. [place] EXAMINATION: CT OF THE HEAD WITHOUT CONTRAST 06/06/2019 8:58 pm TECHNIQUE: CT of the head was performed without the administration of intravenous contrast. Dose modulation, iterative reconstruction, and/or weight based adjustment of the mA/kV was utilized to reduce the radiation dose to as low as reasonably achievable. COMPARISON: CTA brain 06/05/2019. CT brain without contrast 06/05/2019. HISTORY: ORDERING SYSTEM PROVIDED HISTORY: STROKE TECHNOLOGIST PROVIDED HISTORY: Obtain 24 hours after administration of tPA Reason for Exam: 24hr post tpa follow up Acuity: Unknown Type of Exam: Unknown FINDINGS: Skull/soft tissue: Normal bone mineral density. Redemonstration of extensive chronic paranasal sinusitis with no air-fluid levels. The bilateral mastoid air cells are patent. Intracranial contents: No midline shift. Stable left parietal wedge-shaped encephalomalacia consistent with remote infarct. Stable bilateral semicentrum ovale and basal ganglia lacunar infarcts. The ventricular and cisternal spaces appear stable. The rest of the last-white interface is intact. No acute intracranial hemorrhage. [place] 1. No evidence of an acute evolving infarct. 2. No acute intracranial hemorrhage or global mass effect. 3. Redemonstration of multifocal remote infarcts. [place] CTA HEAD W CON AND CTA NECK W CONon 06-06-2019 CTA HEAD W CON AND CTA NECK W CON EXAMINATION: CTA OF THE HEAD AND NECK WITH CONTRAST 06/05/2019 9:46 pm TECHNIQUE: CTA of the head and neck was performed with the administration of intravenous contrast. Multiplanar reformatted images are provided for review. MIP images are provided for review. Stenosis of the internal carotid arteries measured using NASCET criteria. Dose modulation, iterative reconstruction, and/or weight based adjustment of the mA/kV was utilized to reduce the radiation dose to as low as reasonably achievable. COMPARISON: CT head from today HISTORY: ORDERING SYSTEM PROVIDED HISTORY: CVA TECHNOLOGIST PROVIDED HISTORY: Reason for Exam: stroke Acuity: Unknown Type of Exam: Unknown FINDINGS: CTA NECK: AORTIC ARCH/ARCH VESSELS: There is a normal branch pattern of the aortic arch. No significant stenosis is seen of the innominate artery or subclavian arteries. CAROTID ARTERIES: The common carotid arteries are normal in appearance without evidence of a flow limiting stenosis. The internal carotid arteries are normal in appearance without evidence of a flow limiting stenosis by NASCET criteria. No dissection or arterial injury is seen. Calcified plaque in the carotid bulbs bilaterally with less than 10% stenosis. VERTEBRAL ARTERIES: Focal calcified plaque and mild narrowing proximal right vertebral artery. Origin left vertebral artery not well visualized due to beam hardening artifact from adjacent intravenous contrast. SOFT TISSUES: The lung apices are clear. No cervical or superior mediastinal lymphadenopathy. The visualized portion of the larynx and pharynx appear unremarkable. The parotid, submandibular and thyroid glands demonstrate no acute abnormality. BONES: The visualized osseous structures appear unremarkable. CTA HEAD: ANTERIOR CIRCULATION: The internal carotid arteries are normal in course and caliber without focal stenosis. The anterior cerebral and middle cerebral arteries demonstrate no focal stenosis. POSTERIOR CIRCULATION: Right posterior cerebral artery has multiple tandem stenoses. Left posterior cerebral artery demonstrate no focal stenosis. The vertebral and basilar arteries appear unremarkable. BRAIN: No mass effect or midline shift. No abnormal extra-axial fluid collection. The last-white differentiation appears grossly maintained. 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 Otherwise negative CTA of the head and neck. RECOMMENDATIONS: The findings were sent to the Radiology Results Communication Center at 10:48 pm on 06/05/2019to be communicated to a licensed caregiver. Case discussed with Dr. Son at 10:50 p.m.. Interpreted by: Juan C Goyal MD Signed by: Juan C Goyal MD 06/05/19 Final result Normal [facility] EKG 12 Leadon 06-06-2019 Atrial Rate 81 BPM [facility] [place] P [place] 67 degrees [facility] P-R Interval 174 ms [facility] [place] Q-T Interval 378 ms [facility] [place] QRS Duration 90 ms [facility] [place] QTc Calculation (Bazett) 439 ms [facility] [place] R [place] -15 degrees [facility] [place] T [place] 24 degrees [facility] [place] Ventricular Rate 81 BPM [facility] [place] Normal sinus rhythm Nonspecific T wave abnormality Abnormal ECG No previous ECGs available [place] Nav, [facility] Incoming Ekg Results From [employer] - 06/06/2019 9:23 AM EDT Normal sinus rhythm Nonspecific T wave abnormality Abnormal ECG No previous ECGs available [place] Hemoglobin A1Con 06-06-2019 HbA1c (Bld) [Mass fraction] 306 mg/dL Normal [facility] Comment on above: Result Comment: The ADA and AACC recommend providing the estimated average glucose result to permit better patient understanding of their HBA1c result. Performed By: #### C DP, BMP, LIPR, MG, CINTHYA, GLYHGB #### [facility] [employer] [address] [place], [place] [phone] Environmental Technology Professor: Stas Irving MD HbA1c (Bld) [Mass fraction] 12.3 % High 4.0-6.0 [facility] Comment on above: Performed By: #### C DP, BMP, LIPR, MG, CINTHYA, GLYHGB #### [employer] [address] [place], [place] [phone] Environmental Technology Professor: Stas Irving MD Glucose [Mass/Vol] 306 mg/dL [place] Comment on above: The ADA and AACC rec ommend providing the estimated average glucose result to permit better patient understanding of their HBA1c result. HbA1c (Bld) [Mass fraction] 12.3 % High 4 - 6 % [place] Interpretation and review of laboratory results Abnormal [place] LIPID PANELon 06-06-2019 Cholesterol [Mass/Vol] 294 mg/dL High <200 [place] Comment on above: Cholesterol Guidelines: <200 Desirable 200-240 Borderline >240 Undesirable Cholesterol in HDL [Mass/Vol] 38 mg/dL Low >40 [place] Comment on above: HDL Guidelines: <40 Undesirable 40-59 Borderline >59 Desirable Cholesterol in LDL [Mass/Vol] 216 mg/dL High 0 - 130 mg/dL [place] Comment on above: LDL Guidelines: <100 Desirable 100-129 Near to/above Desirable 130-159 Borderline >159 Undesirable Direct (measured) LDL and calculated LDL are not interchangeable tests. Cholesterol in VLDL [Mass/Vol] NOT REPORTED High 1 - 30 mg/dL [place] Cholesterol.total/Cho lesterol in HDL [Mass ratio] 7.7 {ratio} High <5 [place] Triglyceride [Mass/Vol] 200 mg/dL High <150 [place] Comment on above: Triglyceride Guidelines: <150 Desirable 150-199 Borderline 200-499 High >499 Very high Based on AHA Guidelines for fasting triglyceride, May 2012. Lipid Profileon 06-06-2019 Cholesterol [Mass/Vol] 294 mg/dL High <200 [facility] Comment on above: Result Comment: Cholesterol Guidelines: <200 Desirable 200-240 Borderline >240 Undesirable Performed By: #### C DP, BMP, LIPR, MG, CINTHYA, GLYHGB #### [employer] [address] [place] [address] [phone] Environmental Technology Professor: Stas Irving MD Cholesterol in HDL [Mass/Vol] 38 mg/dL Low >40 [facility] Comment on above: Result Comment: HDL Guidelines: <40 Undesirable 40-59 Borderline >59 Desirable Performed By: #### C DP, BMP, LIPR, MG, CINTHYA, GLYHGB #### [employer] [address] [place] [address] [phone] Environmental Technology Professor: Stas Irving MD Cholesterol in LDL [Mass/Vol] 216 mg/dL High 0-130 [facility] Comment on above: Result Comment: LDL Guidelines: <100 Desirable 100-129 Near to/above Desirable 130-159 Borderline >159 Undesirable Direct (measured) LDL and calculated LDL are not interchangeable tests. Performed By: #### C DP, BMP, LIPR, MG, CINTHYA, GLYHGB #### [facility] [address] [place] [address] [id number] Environmental Technology Professor: Stas Irving MD Cholesterol.total/Cho lesterol in HDL [Mass ratio] 7.7 {ratio} High <5 [facility] Comment on above: Performed By: #### C DP, BMP, LIPR, MG, CINTHYA, GLYHGB #### [facility] [place] [address] Environmental Technology Professor: Stas Irving MD Triglyceride [Mass/Vol] 200 mg/dL High <150 [facility] Comment on above: Result Comment: Triglyceride Guidelines: <150 Desirable 150-199 Borderline 200-499 High >499 Very high Based on AHA Guidelines for fasting triglyceride, May 2012. Performed By: #### C DP, BMP, LIPR, MG, CINTHYA, GLYHGB #### [facility] [place] [address] Environmental Technology Professor: Sats Irving MD Cholesterol in VLDL [Mass/Vol] NOT REPORTED Normal 09-20 [facility] Comment on above: Performed By: #### C DP, BMP, LIPR, MG, CINTHYA, GLYHGB #### [address] [address] Environmental Technology Professor: Stas Irving MD MAGNESIUMon 06-06-2019 Magnesium [Mass/Vol] 2.0 mg/dL 1.6 - 2 .6 mg/dL [place], [place] MRSA DNA Probe, Nasalon 05-22 MRSA, DNA, Nasal NEGATIVE: MRSA DNA not detected by nucleic acid amplification. NEGATIVE: MRSA DNA not detected by nucleic acid amplificati [place], [place] Comment on above: Results should be used as an adjunct to nosocomial control efforts to identify patients needing enhanced precautions. The test is not intended to identify patients with staphylococcal infections. Results should not be used to guide or monitor treatment for MRSA infections. Specimen Description .NASAL SWAB [place], [place] MRSA, DNA, Nasalon 9 MRSA, DNA, Nasal NEGATIVE: MRSA DNA not detected by nucleic acid amplification. Normal NMRSAA [facility] Comment on above: Result Comment: Results should be used as an adjunct to nosocomial control efforts to identify patients needing enhanced precautions. The test is not intended to identify patients with staphylococcal infections. Results should not be used to guide or monitor treatment for MRSA infections. Performed By: #### S TROKE #### [address] [address] Environmental Technology Professor: Stas Irving MD Specimen Description .NASAL SWAB Normal [facility] Comment on above: Performed By: #### S MAGDY #### [facility] [address] [place], [place] [id number] Environmental Technology Professor: Stas Irving MD Magnesiumon 06-06-2019 Magnesium [Mass/Vol] 2.0 mg/dL Normal 1.6-2.6 [facility] Comment on above: Performed By: #### C DP, BMP, LIPR, MG, CINTHYA, GLYHGB #### [facility] [address] [place], [place] [phone] Environmental Technology Professor: Stas Irving MD Otheron 06-06-2019 Interpretation and review of laboratory results Abnormal [place] PHOSPHORUSon 06-06-2019 Phosphate [Mass/Vol] 3.2 mg/dL 2.5 - 4 .5 mg/dL [place] POC Glucose Fingerstickon Glucose [Mass/Vol] 315 mg/dL High 75 - 110 mg/dL [place], [place] Interpretation and review of laboratory results Abnormal [place] Glucose [Mass/Vol] 310 mg/dL High 75 - 110 mg/dL [place] Interpretation and review of laboratory results Abnormal [place] Glucose [Mass/Vol] 257 mg/dL High 75 - 110 mg/dL [place] Interpretation and review of laboratory results Abnormal [place] Glucose [Mass/Vol] 265 mg/dL High 75 - 110 mg/dL [place] Interpretation and review of laboratory results Abnormal [place] Glucose [Mass/Vol] 211 mg/dL High 75 - 110 mg/dL [place] Interpretation and review of laboratory results Abnormal [place] POCT glucoseon 06-06-2019 Glucose [Mass/Vol] 211 mg/dL [place] Interpretation and review of laboratory results Normal [place] Phosphorus, Inorg.on 019 Phosphorus, Inorg. 3.2 mg/dL Normal 2.5-4.5 [facility] Comment on above: Performed By: #### C DP, BMP, LIPR, MG, CINTHYA, GLYHGB #### [facility] [employer] [facility] [place] [address] Environmental Technology Professor: Stas Irving MD Anion Gap (Calc) POCon 06-05 Anion gap [Moles/Vol] 10 mmol/L 7 - 16 mmol/L [place] CALCIUM, IONIC (POC)on 06-05 POC Ionized Calcium 1.18 mmol/L 1.15 - 1 .33 mmol/L [place] CHLORIDE (POC)on 06-05-2019 Chloride [Moles/Vol] 99 mmol/L 98 - 10 7 mmol/L [place] CT Head WO Contraston 2018 EXAMINATION: CT OF THE HEAD WITHOUT CONTRAST 06/05/2019 9:45 pm TECHNIQUE: CT of the head was performed without the administration of intravenous contrast. Dose modulation, iterative reconstruction, and/or weight based adjustment of the mA/kV was utilized to reduce the radiation dose to as low as reasonably achievable. COMPARISON: None. HISTORY: ORDERING SYSTEM PROVIDED HISTORY: CVA TECHNOLOGIST PROVIDED HISTORY: Reason for Exam: stroke Acuity: Unknown Type of Exam: Unknown FINDINGS: BRAIN/VENTRICLES: There is no acute intracranial hemorrhage, mass effect or midline shift. No abnormal extra-axial fluid collection. The last-white differentiation is maintained without evidence of an acute infarct. There is no evidence of hydrocephalus. 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 Remote infarct left parietal temporal cortex. ORBITS: The visualized portion of the orbits demonstrate no acute abnormality. SINUSES: Pansinusitis. SOFT TISSUES/SKULL: No acute abnormality of the visualized skull or soft tissues. [place], [place] Nav, [facility] Incoming Radiant Results From [facility] - 06/05/2019 10:17 PM EDT EXAMINATION: CT OF THE HEAD WITHOUT CONTRAST 06/05/2019 9:45 pm TECHNIQUE: CT of the head was performed without the administration of intravenous contrast. Dose modulation, iterative reconstruction, and/or weight based adjustment of the mA/kV was utilized to reduce the radiation dose to as low as reasonably achievable. COMPARISON: None. HISTORY: ORDERING SYSTEM PROVIDED HISTORY: CVA TECHNOLOGIST PROVIDED HISTORY: Reason for Exam: stroke Acuity: Unknown Type of Exam: Unknown FINDINGS: BRAIN/VENTRICLES: There is no acute intracranial hemorrhage, mass effect or midline shift. No abnormal extra-axial fluid collection. The last-white differentiation is maintained without evidence of an acute infarct. There is no evidence of hydrocephalus. 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 Remote infarct left parietal temporal cortex. ORBITS: The visualized portion of the orbits demonstrate no acute abnormality. SINUSES: Pansinusitis. SOFT TISSUES/SKULL: No acute abnormality of the visualized skull or soft tissues. IMPRESSION: No acute intracranial abnormality. 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 Pansinusitis. RECOMMENDATIONS: The findings were sent to the Radiology Results Communication Center at 10:13 pm on 06/05/2019to be communicated to a licensed caregiver. Discussed with Dr. Son at 10:14 p.m.. [place] No acute intracrania l abnormality. 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 Pansinusitis. RECOMMENDATIONS: The findings were sent to the Radiology Results Communication Center at 10:13 pm on 06/05/2019to be communicated to a licensed caregiver. Discussed with Dr. Son at 10:14 p.m.. [place] CTA HEAD NECK W CONTRASTon 1 Nav, [facility] Incoming Radiant Results From [facility] - 06/05/2019 10:57 PM EDT EXAMINATION: CTA OF THE HEAD AND NECK WITH CONTRAST 06/05/2019 9:46 pm TECHNIQUE: CTA of the head and neck was performed with the administration of intravenous contrast. Multiplanar reformatted images are provided for review. MIP images are provided for review. Stenosis of the internal carotid arteries measured using NASCET criteria. Dose modulation, iterative reconstruction, and/or weight based adjustment of the mA/kV was utilized to reduce the radiation dose to as low as reasonably achievable. COMPARISON: CT head from today HISTORY: ORDERING SYSTEM PROVIDED HISTORY: CVA TECHNOLOGIST PROVIDED HISTORY: Reason for Exam: stroke Acuity: Unknown Type of Exam: Unknown FINDINGS: CTA NECK: AORTIC ARCH/ARCH VESSELS: There is a normal branch pattern of the aortic arch. No significant stenosis is seen of the innominate artery or subclavian arteries. CAROTID ARTERIES: The common carotid arteries are normal in appearance without evidence of a flow limiting stenosis. The internal carotid arteries are normal in appearance without evidence of a flow limiting stenosis by NASCET criteria. No dissection or arterial injury is seen. Calcified plaque in the carotid bulbs bilaterally with less than 10% stenosis. VERTEBRAL ARTERIES: Focal calcified plaque and mild narrowing proximal right vertebral artery. Origin left vertebral artery not well visualized due to beam hardening artifact from adjacent intravenous contrast. SOFT TISSUES: The lung apices are clear. No cervical or superior mediastinal lymphadenopathy. The visualized portion of the larynx and pharynx appear unremarkable. The parotid, submandibular and thyroid glands demonstrate no acute abnormality. BONES: The visualized osseous structures appear unremarkable. CTA HEAD: ANTERIOR CIRCULATION: The internal carotid arteries are normal in course and caliber without focal stenosis. The anterior cerebral and middle cerebral arteries demonstrate no focal stenosis. POSTERIOR CIRCULATION: Right posterior cerebral artery has multiple tandem stenoses. Left posterior cerebral artery demonstrate no focal stenosis. The vertebral and basilar arteries appear unremarkable. BRAIN: No mass effect or midline shift. No abnormal extra-axial fluid collection. The last-white differentiation appears grossly maintained. 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 Otherwise negative CTA of the head and neck. RECOMMENDATIONS: The findings were sent to the Radiology Results Communication Center at 10:48 pm on 06/05/2019to be communicated to a licensed caregiver. Case discussed with Dr. Son at 10:50 p.m.. 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 Otherwise negative CTA of the head and neck. RECOMMENDATIONS: The findings were sent to the Radiology Results Communication Center at 10:48 pm on 06/05/2019to be communicated to a licensed caregiver. Case discussed with Dr. Son at 10:50 p.m.. [place] EXAMINATION: CTA OF THE HEAD AND NECK WITH CONTRAST 06/05/2019 9:46 pm TECHNIQUE: CTA of the head and neck was performed with the administration of intravenous contrast. Multiplanar reformatted images are provided for review. MIP images are provided for review. Stenosis of the internal carotid arteries measured using NASCET criteria. Dose modulation, iterative reconstruction, and/or weight based adjustment of the mA/kV was utilized to reduce the radiation dose to as low as reasonably achievable. COMPARISON: CT head from today HISTORY: ORDERING SYSTEM PROVIDED HISTORY: CVA TECHNOLOGIST PROVIDED HISTORY: Reason for Exam: stroke Acuity: Unknown Type of Exam: Unknown FINDINGS: CTA NECK: AORTIC ARCH/ARCH VESSELS: There is a normal branch pattern of the aortic arch. No significant stenosis is seen of the innominate artery or subclavian arteries. CAROTID ARTERIES: The common carotid arteries are normal in appearance without evidence of a flow limiting stenosis. The internal carotid arteries are normal in appearance without evidence of a flow limiting stenosis by NASCET criteria. No dissection or arterial injury is seen. Calcified plaque in the carotid bulbs bilaterally with less than 10% stenosis. VERTEBRAL ARTERIES: Focal calcified plaque and mild narrowing proximal right vertebral artery. Origin left vertebral artery not well visualized due to beam hardening artifact from adjacent intravenous contrast. SOFT TISSUES: The lung apices are clear. No cervical or superior mediastinal lymphadenopathy. The visualized portion of the larynx and pharynx appear unremarkable. The parotid, submandibular and thyroid glands demonstrate no acute abnormality. BONES: The visualized osseous structures appear unremarkable. CTA HEAD: ANTERIOR CIRCULATION: The internal carotid arteries are normal in course and caliber without focal stenosis. The anterior cerebral and middle cerebral arteries demonstrate no focal stenosis. POSTERIOR CIRCULATION: Right posterior cerebral artery has multiple tandem stenoses. Left posterior cerebral artery demonstrate no focal stenosis. The vertebral and basilar arteries appear unremarkable. BRAIN: No mass effect or midline shift. No abnormal extra-axial fluid collection. The last-white differentiation appears grossly maintained. 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 [place] Creatinine W/GFR Point of Ca reon 06-05-2019 Creatinine [Mass/Vol] 0.77 mg/dL 0.51 - 1.19 mg/dL [place] GFR Non- >60 >60 mL/min [place] GFR/1.73 sq M predicted among non-blacks MDRD (S/P/Bld) [Vol rate/Area] mL/min/{1.73_m2} >60 mL/min [place] GFR/1.73 sq M predicted among non-blacks MDRD (S/P/Bld) [Vol rate/Area] [place] Comment on above: Average GFR for 60-6 9 years old: 85 mL/min/1.73sq m Chronic Kidney Disease: <60 mL/min/1.73sq m Kidney failure: <15 mL/min/1.73sq m eGFR calculated using average adult body mass. Additional eGFR calculator available at: http://www.[employer].Uberpong/multiple_crcl_2012.htm Hemoglobin and hematocrit, b sierra 06-05-2019 Hematocrit (Bld) [Volume fraction] 47 % 41 - 53 % [place] Hemoglobin (Bld) [Mass/Vol] 16.0 g/dL 13.5 - 17.5 g/dL [place] Lactic Acid, POCon 9 POC Lactic Acid 1.62 mmol/L High 0.56 - 1.39 mmol/L [place] Otheron 06-05-2019 Interpretation and review of laboratory results Abnormal [place] POC Glucose Fingerstickon Glucose [Mass/Vol] 315 mg/dL High 75 - 110 mg/dL [place] Interpretation and review of laboratory results Abnormal [place] POCT Glucoseon 06-05-2019 Glucose [Mass/Vol] 344 mg/dL High 74 - 100 mg/dL [place] POTASSIUM (POC)on 06-05-2019 Potassium [Moles/Vol] 3.9 mmol/L 3.5 - 4.5 mmol/L [place] SODIUM (POC)on 06-05-2019 Sodium [Moles/Vol] 136 mmol/L Low 138 - 146 mmol/L [place] STROKE PANELon 06-05-2019 % CKMB 2.4 % 0 - 3.5 % [place] Anion gap [Moles/Vol] 12 mmol/L 9 - 17 mmol/L [place] aPTT Coag (Bld) [Time] 26.4 s [place] Basophils (Bld) [#/Vol] 0.06 10*3/uL [place] Basophils/100 WBC (Bld) 1 % 0 - 2 % [place] Bun/Cre Ratio NOT REPORTED [place] Calcium [Mass/Vol] 9.7 mg/dL 8.6 - 10. 4 mg/dL [place] Chloride [Moles/Vol] 98 mmol/L 98 - 10 7 mmol/L [place] CK.MB [Mass/Vol] NORMAL ISOENZYME PATTERN [place] CK.MB [Mass/Vol] 3.3 ng/mL <10.5 [place] CO2 [Moles/Vol] 25 mmol/L 20 - 31 mmol/L [place] Creatinine [Mass/Vol] 0.83 mg/dL 0.7 - 1.2 mg/dL [place] Differential Type NOT REPORTED [place] Eosinophils (Bld) [#/Vol] 0.46 10*3/uL [place] Eosinophils/100 WBC (Bld) 6 % High 1 - 4 % [place] Erythrocyte distribution width (RBC) [Ratio] 13.7 % 11.8 - 14.4 % [place] GFR >60 >60 mL/min [place] GFR Non- >60 >60 mL/min [place] GFR/1.73 sq M predicted among non-blacks MDRD (S/P/Bld) [Vol rate/Area] NOT REPORTED [place] GFR/1.73 sq M predicted among non-blacks MDRD (S/P/Bld) [Vol rate/Area] [place] Comment on above: Average GFR for 60-6 9 years old: 85 mL/min/1.73sq m Chronic Kidney Disease: <60 mL/min/1.73sq m Kidney failure: <15 mL/min/1.73sq m eGFR calculated using average adult body mass. Additional eGFR calculator available at: http://www.[employer]/multiple_crcl_2012.htm Glucose [Mass/Vol] 353 mg/dL High 70 - 99 mg/dL [place] Hematocrit (Bld) [Volume fraction] 47.2 % 40.7 - 50.3 % [place] Hemoglobin (Bld) [Mass/Vol] 15.6 g/dL 13 - 17 g/dL [place] Immature granulocytes (Bld) [#/Vol] 0.03 10*3/uL [place] Immature granulocytes (Bld) [#/Vol] 0 % 0 [place] INR Coag (PPP) [Relative time] 1.2 {INR} [place] Comment on above: Therapeutic Range: Moderate Anticoagulant Intensity: INR = 2.0-3.0 High Anticoagulant Intensity: INR = 2.5-3.5 Interpretation and review of laboratory results Abnormal [place] Lymphocytes (Bld) [#/Vol] 2.54 10*3/uL [place] Lymphocytes/100 WBC (Bld) 32 % 24 - 43 % [place] MCH (RBC) [Entitic mass] 28.5 pg 25.2 - 33.5 pg [place] MCHC (RBC) [Mass/Vol] 33.1 g/dL 28.4 - 34.8 g/dL [place] MCV (RBC) [Entitic vol] 86.1 fL 82.6 - 102.9 fL [place] Monocytes (Bld) [#/Vol] 0.69 10*3/uL [place] Monocytes/100 WBC (Bld) 9 % 3 - 12 % [place] Myoglobin [Mass/Vol] 24 ng/mL Low 28 - 72 ng/mL [place] Platelet mean volume (Bld) [Entitic vol] 11.3 fL 8.1 - 13.5 fL [place] Platelets (Bld) [#/Vol] 201 10*3/uL [place] Platelets (Bld) [#/Vol] NOT REPORTED [place] Potassium [Moles/Vol] 4.1 mmol/L 3.7 - 5.3 mmol/L [place] PT Coag (PPP) [Time] 12.1 s High [place] RBC (Bld) [#/Vol] 5.48 10*6/uL 4.21 - 5.7 7 m/uL [place] RBC morphology finding Nom (Bld) NOT REPORTED [place] Segmented neutrophils/100 WBC (Bld) 52 % 36 - 65 % [place] Segs Absolute 4.20 [place] Sodium [Moles/Vol] 135 mmol/L 135 - 144 mmol/L [place] Total CK 138 U/L 39 - 308 U/L [place] Troponin I.cardiac [Mass/Vol] NOT REPORTED [place] Troponin T.cardiac [Mass/Vol] NOT REPORTED <0.03 ng/mL [place] Troponin, High Sensitivity 17 ng/L 0 - 22 ng/L [place] Comment on above: High Sensitivity Troponin values cannot be compared with other Troponin methodologies. Patients with high levels of Biotin oral intake (i.e >5mg/day) may have falsely decreased Troponin levels. Samples collected within 8 hours of biotin intake may require additional information for diagnosis. Urea nitrogen [Mass/Vol] 8 mg/dL 8 - 23 mg/dL [place] WBC (Bld) [#/Vol] 0.0 10*3/uL 0.0 per 10 0 WBC [place] WBC (Bld) [#/Vol] 8.0 10*3/uL [place] WBC Morphology NOT REPORTED [place] Stroke Panelon 06-05-2019 % CKMB 2.4 % Normal 0.0-3.5 [facility] Comment on above: Performed By: #### S TROKE #### [facility] [employer] [address] [place] [id number] Environmental Technology Professor: Stas Irving MD Anion gap [Moles/Vol] 12 mmol/L Normal 9-17 [facility] Comment on above: Performed By: #### S TROKE #### [facility] [employer] [address] [place] [address] [id number] Environmental Technology Professor: Stas Irving MD Calcium [Mass/Vol] 9.7 mg/dL Normal 8.6-10.4 [facility] Comment on above: Performed By: #### S TROKE #### [facility] [employer] [address] [place] [address] Environmental Technology Professor: Stas Irving MD Chloride [Moles/Vol] 98 mmol/L Normal 98-107 [facility] Comment on above: Performed By: #### S TOREYKE #### [address] [address] Environmental Technology Professor: Stas Irving MD CK [Catalytic activity/Vol] 138 U/L Normal 39-308 [facility] Comment on above: Performed By: #### S TROKE #### [address] [address] Environmental Technology Professor: Stas Irving MD CK.MB [Mass/Vol] NORMAL ISOENZYME PATTERN Normal [facility] Comment on above: Performed By: #### S MAGDY #### [address] [address] Environmental Technology Professor: Stas Irving MD CO2 [Moles/Vol] 25 mmol/L Normal 20-31 [facility] Comment on above: Performed By: #### S TOREYKE #### [address] [address] Environmental Technology Professor: Stas Irving MD Creatinine [Mass/Vol] 0.83 mg/dL Normal 0.70-1.20 [facility] Comment on above: Performed By: #### S TOREYKE #### [address] [address] Environmental Technology Professor: Stas Irving MD GFR, Amer >60 Normal >60 [facility] Comment on above: Performed By: #### S TOREYKE #### [address] [address] Environmental Technology Professor: Stas Irving MD GFR,non Amer >60 Normal >60 [facility] Comment on above: Performed By: #### S TOREYKE #### [address] [address] Environmental Technology Professor: Stas Irving MD Glucose [Mass/Vol] 353 mg/dL High 70-99 [facility] Comment on above: Performed By: #### S MAGDY #### [place] [address] [place] [address] Environmental Technology Professor: Stas Irving MD Potassium [Moles/Vol] 4.1 mmol/L Normal 3.7-5.3 [facility] Comment on above: Performed By: #### S MAGDY #### [address] [address] Environmental Technology Professor: Stas Irving MD Sodium [Moles/Vol] 135 mmol/L Normal 135-144 [facility] Comment on above: Performed By: #### S MAGDY #### [address] [address] Environmental Technology Professor: Stas Irving MD Urea nitrogen [Mass/Vol] 8 mg/dL Normal 8-23 [facility] Comment on above: Performed By: #### S MAGDY #### [address] [address] Environmental Technology Professor: Stas Irving MD (cont.) [facility] Comment on above: Result Comment: Aver age GFR for 60-69 years old: 85 mL/min/1.73sq m Chronic Kidney Disease: <60 mL/min/1.73sq m Kidney failure: <15 mL/min/1.73sq m eGFR calculated using average adult body mass. Additional eGFR calculator available at: http://www.[employer].com/multiple_crcl_2012.htm Performed By: #### S MAGDY #### [address] [address] Environmental Technology Professor: Stas Irving MD CK-MB,Quantitative 3.3 ng/mL Normal <10.5 [facility] Comment on above: Performed By: #### S TOREYKE #### [facility] [address] [place] [address] Environmental Technology Professor: Stas Irving MD Myoglobin [Mass/Vol] 24 ng/mL Low 28-72 [facility] Comment on above: Performed By: #### S TROKE #### [facility] [address] [place] [address] Environmental Technology Professor: Stas Irving MD Troponin, High Sens 17 ng/L Normal 0-22 [facility] Comment on above: Result Comment: High Sensitivity Troponin values cannot be compared with other Troponin methodologies. Patients with high levels of Biotin oral intake (i.e >5mg/day) may have falsely decreased Troponin levels. Samples collected within 8 hours of biotin intake may require additional information for diagnosis. Performed By: #### S MAGDY #### [facility] [employer] [address] [place] [id number] Environmental Technology Professor: Stas Irving MD aPTT Coag (Bld) [Time] 26.4 s Normal 20.5-30.5 [facility] Comment on above: Performed By: #### S TOREYKE #### [facility] [address] [place] [address] Environmental Technology Professor: Stas Irving MD INR Coag (PPP) [Relative time] 1.2 {INR} Normal [facility] Comment on above: Result Comment: Therapeutic Range: Moderate Anticoagulant Intensity: INR = 2.0-3.0 High Anticoagulant Intensity: INR = 2.5-3.5 Performed By: #### S TOREYKE #### [facility] [address] [place] [address] Environmental Technology Professor: Stas Irving MD PT Coag (PPP) [Time] 12.1 s High 9.0-12.0 [facility] Comment on above: Performed By: #### S TOREYKE #### [facility] [address] [place] [address] [phone] Environmental Technology Professor: Stas Irving MD Abs. Basophil 0.06 k/uL Normal 0.00-0.20 [facility] Comment on above: Performed By: #### S TOREYKE #### [address] [address] Environmental Technology Professor: Stas Irving MD Abs.Imm.Granulocyte 0.03 k/uL Normal 0.00-0.30 [facility] Comment on above: Performed By: #### S TOREYKE #### [address] [address] Environmental Technology Professor: Stas Irving MD Abs.Neutrophil (Seg) 4.20 k/uL Normal 1.50-8.10 [facility] Comment on above: Performed By: #### S MAGDY #### [address] [address] Environmental Technology Professor: Stas Irving MD Basophils/100 WBC (Bld) 1 % Normal 0-2 [facility] Comment on above: Performed By: #### S MAGDY #### [address] [address] Environmental Technology Professor: Stas Irving MD Eosinophils (Bld) [#/Vol] 0.46 10*3/uL High 0.00-0.44 [facility] Comment on above: Performed By: #### S TOREYKE #### [address] [address] Environmental Technology Professor: Stas Irving MD Eosinophils/100 WBC (Bld) 6 % High 1-4 [facility] Comment on above: Performed By: #### S TOREYKE #### [address] [address] Environmental Technology Professor: Stas Irving MD Erythrocyte distribution width (RBC) [Ratio] 13.7 % Normal 11.8-14.4 [facility] Comment on above: Performed By: #### S TROKE #### [address] [address] Environmental Technology Professor: Stas Irving MD Hematocrit (Bld) [Volume fraction] 47.2 % Normal 40.7-50.3 [facility] Comment on above: Performed By: #### S TROKE #### [address] [address] Environmental Technology Professor: Stas Irving MD Hemoglobin (Bld) [Mass/Vol] 15.6 g/dL Normal 13.0-17.0 [facility] Comment on above: Performed By: #### S TROKE #### [address] [address] Environmental Technology Professor: Stas Irving MD Immature granulocytes (Bld) [#/Vol] 0 % Normal 0 [facility] Comment on above: Performed By: #### S TROKE #### [address] [address] Environmental Technology Professor: Stas Irving MD Lymphocytes (Bld) [#/Vol] 2.54 10*3/uL Normal 1.10-3.70 [facility] Comment on above: Performed By: #### S TROKE #### [address] [address] Environmental Technology Professor: Stas Irving MD Lymphocytes/100 WBC (Bld) 32 % Normal 24-43 [facility] Comment on above: Performed By: #### S TROKE #### [address] [address] Environmental Technology Professor: Stas Irving MD MCH (RBC) [Entitic mass] 28.5 pg Normal 25.2-33.5 [facility] Comment on above: Performed By: #### S TROKE #### [address] [address] Environmental Technology Professor: Stas Irving MD MCHC (RBC) [Mass/Vol] 33.1 g/dL Normal 28.4-34.8 [facility] Comment on above: Performed By: #### S TROKE #### [address] [address] Environmental Technology Professor: Stas Irving MD MCV (RBC) [Entitic vol] 86.1 fL Normal 82.6-102.9 [facility] Comment on above: Performed By: #### S TOREYKE #### [address] [address] Environmental Technology Professor: Stas Irving MD Monocytes (Bld) [#/Vol] 0.69 10*3/uL Normal 0.10-1.20 [facility] Comment on above: Performed By: #### S TOREYKE #### [address] [address] Environmental Technology Professor: Stas Irving MD Monocytes/100 WBC (Bld) 9 % Normal 3-12 [facility] Comment on above: Performed By: #### S TOREYKE #### [address] [address] Environmental Technology Professor: Stas Irving MD Neutrophil (Seg) 52 % Normal 36-65 [facility] Comment on above: Performed By: #### S TOREYKE #### [address] [address] Environmental Technology Professor: Stas Irving MD NRBC Automated 0.0 per 100 WBC Normal 0.0 [facility] Comment on above: Performed By: #### S TOREYKE #### [address] [address] Environmental Technology Professor: Stas Irving MD Platelet mean volume (Bld) [Entitic vol] 11.3 fL Normal 8.1-13.5 [facility] Comment on above: Performed By: #### S TROKE #### [id number] [place] [address] Environmental Technology Professor: Stas Irving MD Platelets (Bld) [#/Vol] 201 10*3/uL Normal 138-453 [facility] Comment on above: Performed By: #### S TROKE #### [address] [address] Environmental Technology Professor: Stas Irving MD RBC (Bld) [#/Vol] 5.48 10*6/uL Normal 4.21-5.77 [facility] Comment on above: Performed By: #### S TROKE #### [address] [address] Environmental Technology Professor: Stas Irving MD WBC (Bld) [#/Vol] 8.0 10*3/uL Normal 3.5-11.3 [facility] Comment on above: Performed By: #### S TROKE #### [address] [address] Environmental Technology Professor: Stas Irving MD Auto Diff Performed NOT REPORTED Normal [facility] Comment on above: Performed By: #### S TROKE #### [address] [address] Environmental Technology Professor: Stas Irving MD BUN/CRE Ratio NOT REPORTED Normal 9-20 [facility] Comment on above: Performed By: #### S TROKE #### [address] [address] Environmental Technology Professor: Stas Irving MD Platelets (Bld) [#/Vol] NOT REPORTED Normal [facility] Comment on above: Performed By: #### S TROKE #### [address] [address] Environmental Technology Professor: Stas Irving MD RBC morphology finding Nom (Bld) NOT REPORTED Normal [facility] Comment on above: Performed By: #### S TROKE #### [facility] [address] [place] [address] Environmental Technology Professor: Stas Irving MD Staging: NOT REPORTED Normal [facility] Comment on above: Performed By: #### S TROKE #### [facility] [address] [place] [address] Environmental Technology Professor: Stas Irving MD Troponin I.cardiac [Mass/Vol] NOT REPORTED Normal [facility] Comment on above: Performed By: #### S TROKE #### [facility] [employer] [address] [place] [address] Environmental Technology Professor: Stas Irving MD Troponin T.cardiac [Mass/Vol] NOT REPORTED Normal <0.03 [facility] Comment on above: Performed By: #### S TROKE #### [facility] [employer] [address] [place] [address] Environmental Technology Professor: Stas Irving MD WBC Morphology NOT REPORTED Normal [facility] Comment on above: Performed By: #### S TROKE #### [facility] [employer] [address] [place] [address] Environmental Technology Professor: Stas Irving MD Venous Blood Gas, POCon 05-22 Wayne Test NOT REPORTED [facility] aPTT Coag (Bld) [Time] NOT REPORTED [facility] FIO2 NOT REPORTED [facility] HCO3, Venous 27.3 mmol/L 22 - 29 mmol/L [facility] Mode NOT REPORTED [facility] [place] Negative Base Excess, Kody NOT REPORTED [facility] O2 Device/Flow/% NOT REPORTED [facility] Oxygen saturation in Blood 67 % 60 - 85 % [facility] pCO2, Kody 41.3 [facility] pH, Kody 7.428 [place] pO2, Kody 33.8 [place] POC pCO2 Temp NOT REPORTED mm Hg [place] POC pH Temp NOT REPORTED [place] POC pO2 Temp NOT REPORTED mm Hg [place] Positive Base Excess, Kody 3 [place] Sample Site NOT REPORTED [place] Total CO2, Venous 29 mmol/L 23 - 30 mmol/L [place] XR CHEST PORTABLEon 06-05-20 XR CHEST PORTABLE EXAMINATION: ONE XRAY VIEW OF THE CHEST 06/05/2019 9:01 pm COMPARISON: None. HISTORY: ORDERING SYSTEM PROVIDED HISTORY: CVA TECHNOLOGIST PROVIDED HISTORY: CVA Reason for Exam: stroke upright port FINDINGS: The lungs are without acute focal process. There is no effusion or pneumothorax. The cardiomediastinal silhouette is without acute process. The osseous structures are without acute process. IMPRESSION: No acute process. Interpreted by: Juan C Goyal MD Signed by: Juan C Goyal MD 06/05/19 Final result Normal [facility] EXAMINATION: ONE XRA Y VIEW OF THE CHEST 06/05/2019 9:01 pm COMPARISON: None. HISTORY: ORDERING SYSTEM PROVIDED HISTORY: CVA TECHNOLOGIST PROVIDED HISTORY: CVA Reason for Exam: stroke upright port FINDINGS: The lungs are without acute focal process. There is no effusion or pneumothorax. The cardiomediastinal silhouette is without acute process. The osseous structures are without acute process. [place], [place] Nav, [employer] Incoming Radiant Results From [employer] - 06/05/2019 9:43 PM EDT EXAMINATION: ONE XRAY VIEW OF THE CHEST 06/05/2019 9:01 pm COMPARISON: None. HISTORY: ORDERING SYSTEM PROVIDED HISTORY: CVA TECHNOLOGIST PROVIDED HISTORY: CVA Reason for Exam: stroke upright port FINDINGS: The lungs are without acute focal process. There is no effusion or pneumothorax. The cardiomediastinal silhouette is without acute process. The osseous structures are without acute process. IMPRESSION: No acute process. [place] No acute process. [place] Vital Signs Date Time Vital Sign Value Performing Clinician Facility 02-02-2023 10:20-0400 Blood Pressure Location Milvia Lue [facility] 02-02-2023 10:20-0400 Diastolic blood pressure 82 mm[Hg] Milvia Lue [facility] 02-02-2023 10:20-0400 Heart rate 72 /min Milvia Lue [facility] 02-02-2023 10:20-0400 Systolic blood pressure 132 mm[Hg] Milvia Lue [facility] 11-03-2022 08:12-0400 Blood Pressure Location Milvia Lue [facility] 11-03-2022 08:12-0400 Diastolic blood pressure 81 mm[Hg] Milvia Lue [facility] 11-03-2022 08:12-0400 Heart rate 77 /min Milvia Lue [facility] 11-03-2022 08:12-0400 Systolic blood pressure 131 mm[Hg] Milvia Lue [facility] 08-04-2022 08:56-0500 Blood Pressure Location Milvia Lue [facility] 08-04-2022 08:56-0500 Diastolic blood pressure 90 mm[Hg] Milvia Lue [facility] 08-04-2022 08:56-0500 Heart rate 78 /min Milvia Lue [facility] 08-04-2022 08:56-0500 Respiratory rate 16 /min Milvia Lue [facility] 08-04-2022 08:56-0500 Systolic blood pressure 140 mm[Hg] Milvia Lue [facility] 07-06-2022 17:09-0500 Body temperature 97.88 [degF] [facility] 07-06-2022 17:09-0500 Diastolic blood pressure 88 mm[Hg] Milvia Lue [facility] 07-06-2022 17:09-0500 Heart rate 80 /min Milvia Lue [facility] 07-06-2022 17:09-0500 Mean blood pressure 114 mm[Hg] Milvia Lue [facility] 07-06-2022 17:09-0500 Respiratory rate 16 /min Milvia Lue [facility] 07-06-2022 17:09-0500 SaO2% (BldA) [Mass fraction] 98 % Milvia Lue [facility] 07-06-2022 17:09-0500 Systolic blood pressure 165 mm[Hg] [facility]via Lue [facility] 07-06-2022 16:24-0500 Blood Pressure Location Milvia Lue [facility] 07-06-2022 16:24-0500 Body temperature 97.88 [degF] [facility] L[facility] 07-06-2022 16:24-0500 Diastolic blood pressure 98 mm[Hg] [facility] Lue [facility] 07-06-2022 16:24-0500 Heart rate 76 /min Milvia Lue [facility] 07-06-2022 16:24-0500 Mean blood pressure 122 mm[Hg] [facility] Lue [facility] 07-06-2022 16:24-0500 SaO2% (BldA) [Mass fraction] 96 % [facility] Lue [facility] 07-06-2022 16:24-0500 Systolic blood pressure 169 mm[Hg] [facility]via Lue [facility] 07-06-2022 16:16-0500 Blood Pressure Location Milvia Lue [facility] 07-06-2022 16:16-0500 Body temperature 97.52 [degF] [facility] L[facility] 07-06-2022 16:16-0500 Diastolic blood pressure 105 mm[Hg] [facility]via Lue [facility] 07-06-2022 16:16-0500 Heart rate 82 /min [facility]via Lue [facility] 07-06-2022 16:16-0500 Respiratory rate 16 /min [facility]via Lue [facility] 07-06-2022 16:16-0500 SaO2% (BldA) [Mass fraction] 98 % [facility] Lue [facility] 07-06-2022 16:16-0500 Systolic blood pressure 159 mm[Hg] [facility] Lue [facility] 07-06-2022 16:03-0500 Blood Pressure Location Milvia Lue [facility] 07-06-2022 16:03-0500 Respiratory rate 12 /min [facility]via Lue [facility] 07-06-2022 15:58-0500 Respiratory rate 17 /min Milvia Lue [facility] 07-06-2022 15:48-0500 Body temperature 97.7 [degF] [facility] Lue [facility] 07-06-2022 10:40-0500 Mean blood pressure 106 mm[Hg] [facility]via Lue [facility] 07-06-2022 10:40-0500 Heart rate 80 /min Milvia Lue [facility] 07-06-2022 10:39-0500 Body temperature 98.78 [degF] [facility] Lue [facility] 07-06-2022 10:39-0500 Mean blood pressure 113 mm[Hg] [facility]via Lue [facility] 07-06-2022 10:39-0500 Respiratory rate 20 /min [facility]via Lue [facility] 06-30-2022 17:30-0500 Blood Pressure Location Milvia Lue [facility] 06-30-2022 17:30-0500 BP/Pulse Patient Position Milvia Lue [facility] 06-30-2022 17:30-0500 Diastolic blood pressure 84 mm[Hg] [facility] Lue [facility] 06-30-2022 17:30-0500 Systolic blood pressure 175 mm[Hg] [facility]via Lue [facility] 06-30-2022 17:22-0500 Blood Pressure Location Milvia Lue [facility] 06-30-2022 17:22-0500 Diastolic blood pressure 96 mm[Hg] [facility] Lue [facility] 06-30-2022 17:22-0500 Heart rate 67 /min [facility]via Lue [facility] 06-30-2022 17:22-0500 Mean blood pressure 125 mm[Hg] [facility] Lue [facility] 06-30-2022 17:22-0500 Systolic blood pressure 185 mm[Hg] [facility] Lue [facility] 06-30-2022 16:53-0500 Blood Pressure Location Milvia Lue [facility] 06-30-2022 16:53-0500 Body temperature 98.96 [degF] [facility] L[facility] 06-30-2022 16:53-0500 BP/Pulse Patient Position Milvia Lue [facility] 06-30-2022 16:53-0500 Diastolic blood pressure 96 mm[Hg] [facility]via Lue [facility] 06-30-2022 16:53-0500 Heart rate 76 /min [facility]via Lue [facility] 06-30-2022 16:53-0500 Mean blood pressure 124 mm[Hg] [facility] Lue [facility] 06-30-2022 16:53-0500 Respiratory rate 18 /min [facility]via Lue [facility] 06-30-2022 16:53-0500 Systolic blood pressure 180 mm[Hg] [facility]via Lue [facility] 06-30-2022 16:52-0500 BP/Pulse Patient Position Milvia Lue [facility] 2022 16:52-0500 Heart rate 79 /min Milvia Lue [facility] 06-30-2022 16:52-0500 Mean blood pressure 124 mm[Hg] [facility] Lue [facility] 06-30-2022 16:52-0500 SaO2% (BldA) [Mass fraction] 98 % Milvia Lue [facility] 06-25-2022 15:25-0400 Blood [facility] [place] 06-25-2022 15:25-0400 Diastolic blood pressure 86 mm[Hg] [facility] [place] 06-25-2022 15:25-0400 Heart rate 72 /min [facility] [place] 06-25-2022 15:25-0400 Respiratory rate 16 /min [facility] [place] 06-25-2022 15:25-0400 Systolic blood pressure 142 mm[Hg] Curtis NILL [place] 06-02-2022 09:21-0400 Blood Pressure Location Milvia Lue [facility] 06-02-2022 09:21-0400 Diastolic blood pressure 86 mm[Hg] [facility] Lue [facility] 06-02-2022 09:21-0400 Heart rate 72 /min Milvia Lue [facility] 06-02-2022 09:21-0400 Systolic blood pressure 140 mm[Hg] [facility]via Lue [facility] 05-26-2022 07:25-0400 Body height 182.88 cm MD Adilson Salazar Work Phone: [facility] 05-26-2022 07:25-0400 Body weight 98.88 kg MD Adilson Salazar Work Phone: [facility] 04-21-2022 11:39-0400 Respiratory rate 16 /min Milvia Palomo [facility] 06-09-2019 11:39-0400 Body Temperature 98.29 [degF] [place] 06-09-2019 11:39-0400 BP Diastolic 79 mm[Hg] [place] 06-09-2019 11:39-0400 BP Systolic 134 mm[Hg] [place] 06-09-2019 11:39-0400 Pulse (Heart Rate) 84 /min [place] 06-09-2019 11:39-0400 Pulse Oximetry 95 % [place] 06-09-2019 11:39-0400 Respiratory Rate 20 /min [place] 06-05-2019 20:48-0400 BMI (Body Mass Index) 29.84 kg/m2 [place], [place] 06-05-2019 20:48-0400 Body weight 99.79 kg [place] 06-05-2019 20:48-0400 Height 182.9 cm [place] Encounters Encounter Date Encounter Type Care Provider Facility Start: 09-26-2023 End: 09-26-2023 ambulatory ADILSON SALAZAR Not Available Start: 09-20-2023 End: 09-20-2023 ambulatory [facility] Start: 08-09-2023 ambulatory [facility] Start: 08-05-2023 End: 08-05-2023 ambulatory ADILSON SALAZAR Not Available Start: 08-03-2023 End: 08-04-2023 ambulatory [facility] Start: 08-02-2023 End: 08-03-2023 ambulatory [facility] Start: 08-01-2023 End: 08-02-2023 ambulatory [facility] Start: 07-29-2023 End: 07-30-2023 ambulatory [facility] Start: 07-28-2023 End: 07-29-2023 ambulatory [facility] Start: 07-27-2023 End: 07-28-2023 ambulatory [facility] Start: 07-26-2023 End: 07-27-2023 ambulatory [facility] Start: 07-25-2023 End: 07-26-2023 ambulatory [facility] Start: 07-22-2023 End: 07-23-2023 ambulatory [facility] Start: 07-21-2023 End: 07-22-2023 ambulatory [facility] Start: 07-21-2023 End: 07-21-2023 ambulatory [facility] Start: 07-20-2023 End: 07-21-2023 ambulatory [facility] Start: 07-18-2023 End: 07-19-2023 ambulatory [facility] Start: 07-13-2023 End: 07-14-2023 ambulatory [facility] Start: 07-12-2023 End: 07-13-2023 ambulatory [facility] Start: 07-11-2023 End: 07-12-2023 ambulatory [facility] Start: 07-10-2023 End: 07-11-2023 ambulatory [facility] Start: 07-08-2023 End: 07-09-2023 ambulatory [facility] Start: 07-07-2023 End: 07-08-2023 ambulatory [facility] Start: 07-06-2023 End: 07-07-2023 ambulatory [facility] Start: 07-05-2023 End: 07-06-2023 ambulatory [facility] Start: 07-04-2023 End: 07-05-2023 ambulatory [facility] Start: 06-30-2023 End: 07-01-2023 ambulatory [facility] Start: 06-29-2023 End: 06-30-2023 ambulatory [facility] Start: 06-28-2023 End: 06-29-2023 ambulatory [facility] Start: 06-27-2023 End: 06-28-2023 [facility] Start: 06-24-2023 End: 06-25-2023 ambulatory [facility] Start: 06-23-2023 End: 06-24-2023 ambulatory [facility] Start: 06-22-2023 End: 06-23-2023 ambulatory [facility] Start: 06-21-2023 End: 06-22-2023 [facility] Start: 06-17-2023 End: 06-18-2023 [facility] Start: 06-07-2023 End: 06-07-2023 ambulatory [facility] Start: 06-02-2023 End: 06-03-2023 ambulatory [facility] Start: 06-01-2023 End: 06-02-2023 [facility] Start: 05-30-2023 End: 05-31-2023 ambulatory [facility] Start: 05-25-2023 End: 05-26-2023 ambulatory [facility] Start: 04-12-2023 ambulatory [facility] Start: 04-12-2023 End: 04-12-2023 ambulatory [facility] Start: 03-17-2023 ambulatory [facility] Start: 03-02-2023 ambulatory [facility] Start: 02-23-2023 End: 02-24-2023 ambulatory [facility] Start: 02-17-2023 End: 02-17-2023 Encounter for preprocedural cardiovascular examination [facility] Start: 02-17-2023 End: 02-18-2023 ambulatory [facility] Start: 02-02-2023 ambulatory [facility] Start: 02-02-2023 End: 02-03-2023 ambulatory Milvia Palomo Facility:[facility] Start: 02-02-2023 End: 02-02-2023 Patient encounter procedure [facility]via Pal[facility] Start: 01-28-2023 ambulatory [facility] Start: 12-15-2022 End: 12-16-2022 ambulatory [facility] Start: 12-13-2022 End: 12-14-2022 ambulatory [facility] Start: 12-07-2022 End: 12-07-2022 ambulatory [facility] Start: 11-30-2022 ambulatory JOSE BARBIDENNY [facility] Start: 11-17-2022 End: 11-17-[address] ADILSON SALAZAR Facility:[facility] Start: 11-03-2022 End: 11-04-2022 ambulatory Milvia Palomo Facility:[facility] Start: 11-03-2022 End: 11-03-2022 Patient encounter procedure Milvia Palomo [facility] Start: 10-25-2022 End: 10-26-2022 ambulatory MILVIA M ZULLYJosiah Facility: Start: 10-12-2022 ambulatory Daniel Stricklandkrystin ty:[facility] Start: 10-06-2022 End: 10-07-2022 ambulatory Milvia M. Zullyjosiah Facility:[facility] Start: 10-06-2022 End: 10-06-2022 Patient encounter procedure Milvia Palomo [facility] Start: 09-22-2022 ambulatory Natasha Hassan Faci lity:[facility] Start: 09-20-2022 End: 09-20-2022 ambulatory Milvia Powers Zullyjosiah Facility:[facility] Start: 09-20-2022 End: 09-20-2022 ambulatory MD Adilson Salazar Work Phone: [facility] Work Phone: Start: 09-20-2022 End: 09-20-2022 Patient encounter procedure MD Adilson Salazar Work Phone: [facility] Work Phone: Start: 08-06-2022 End: 08-07-[address] CURTIS Osullivan Facility: Start: 08-04-2022 End: 08-05-2022 ambulatory Milvia PriyaAbran Palomo Facility:[facility] Start: 08-04-2022 End: 08-04-2022 Patient encounter procedure Milvia PowersAbran Danieljosiah [facility] Start: 08-03-2022 ambulatory Curtis GRACIA Facility :[facility] Start: 07-21-2022 Encounter for preprocedural laboratory examination DR CURTIS Osullivan [facility] Start: 07-21-2022 End: 07-22-[address] CURTIS Osullivan Facility: Start: 07-17-2022 End: 07-18-[address] CURTIS Osullivan Facility: Start: 07-17-2022 End: 07-18-2022 Encounter for preprocedural laboratory examination DR CURTIS Osullivan Facility: Start: 07-06-2022 End: 07-06-2022 ambulatory Milvia Palomo Facility:[facility] Start: 07-06-2022 End: 07-06-2022 Admission to same day surgery center Milvia Palomo [facility] Start: 06-30-2022 End: 07-01-2022 ambulatory Milvia Palomo Facility:[facility] Start: 06-30-2022 End: 06-30-2022 Patient encounter procedure Milvia Palomo [facility] Start: 06-29-2022 End: 09-28-2022 ambulatory Milvia Palomo Facility:[facility] Start: 06-25-2022 End: 06-26-2022 ambulatory Curtis GRACIA Facility: [place] Start: 06-25-2022 End: 06-25-2022 Patient encounter procedure Curtis GRACIA [facility] Start: 06-15-2022 End: 06-16-[address] ADILSON SALAZAR Facility: Start: 06-07-2022 End: 06-07-[address] ADILSON SALAZAR Facility: Start: 06-04-2022 ambulatory Daniel BAEZA Facility : [place] Start: 06-03-2022 End: 09-27-2022 Recurring Milvia Palomo [facility] Start: 06-02-2022 End: 06-03-2022 ambulatory [facility] Start: 06-02-2022 End: 06-30-2022 Pre-admission assessment Milvia Palomo [facility] Start: 06-02-2022 End: 06-02-2022 Patient encounter [facility] Start: 05-26-2022 End: 05-26-2022 ambulatory Milvia Palomo Facility:[facility] Start: 05-26-2022 End: 05-26-2022 ambulatory MD Adilson Salazar Work Phone: [facility] Work Phone: Start: 05-26-2022 End: 05-26-2022 Patient encounter procedure MD Adilson Salazar Work Phone: [facility] Start: 04-21-2022 End: 04-22-2022 ambulatory Milvia Palomo Facility:[facility] Start: 04-21-2022 End: 04-21-2022 Patient encounter procedure Milvia Palomo [facility] Start: 01-26-2022 End: 01-27-[address] ADILSON SALAZAR Facility: Start: 06-05-2019 End: 06-09-2019 Evaluation and management of inpatient OSCAR HARP [facility]ol[facility] Start: 06-05-2019 End: 06-09-2019 Evaluation and management of inpatient Anselmo Garza Work Phone: [address] [facility] Comment on above: Cerebrovascular acci dent (CVA), unspecified mechanism (HCC) (Primary Dx) Procedures Date Procedure Procedure Detail Performing Clinician Start: 09-20-2022 Positron emission tomography MD Adilson Salazar Work Phone: Start: 07-06-2022 Biopsy of prostate Salud y Dewey Start: 01-26-[address] ADILSON PEARSON Comment on above: Performed By: #### P TT, PT #### [facility] [address] [place] [address] Dr. Marcell Luque Start: 09-08-2020 Transrectal biopsy o f prostate using ultrasound guidance Milvia Palomo Start: 06-09-2019 DISCHARGE PATIENT OSCAR HARP Start: 06-09-2019 Glucose blood reagent strip OSCAR HARP Start: 06-09-2019 Assay of homocysteine P AUL LOYD Start: 06-09-2019 Clotting factor viii ahg 1 stage [facility] Start: 06-09-2019 Clotting inhibitors protein c activity [facility] Start: 06-09-2019 Clotting inhibitors protein s free [facility] Start: 06-09-2019 Flow cytometry cell surf marker techl only 1st OSCAR HARP Start: 06-09-2019 Deepak viper venom time diluted OSCAR HARP Start: 06-09-2019 Glucose blood reagent strip Omer Zambrano Work Phone: Start: 06-09-2019 FACTOR 5 LEIDEN OSCAR RITTER SUSHILA Start: 06-09-2019 PROTHROMBIN GENE MUTATION OSCAR HARP Start: 06-09-2019 MISCELLANEOUS NURSIN G CARE ORDER (SPECIFY) OSCAR HARP Start: 06-09-2019 Gluc bld gluc mntr d ev cleared fda spec home use OSCAR HARP Start: 06-09-2019 HOME BIPAP OR CPAP OSCAR HARP Start: 06-09-2019 INCENTIVE SPIROMETRY RT OSCAR HARP Start: 06-09-2019 INITIATE OXYGEN THER APY PROTOCOL OSCAR HARP Start: 06-09-2019 Glucose blood reagent strip OSCAR HARP Start: 06-09-2019 Assay of homocysteine L uis Bryn Morales Work Phone: Start: 06-09-2019 Basic metabolic pane l calcium total OSCAR HARP Start: 06-09-2019 Blood count complete auto&auto difrntl wbc OSCAR HARP Start: 06-09-2019 Glucose blood reagent strip Omer S Ahmed Work Phone: Start: 06-09-2019 Basic metabolic pane l calcium total Ma'En Al-Dabbas Work Phone: Start: 06-09-2019 Blood count complete auto&auto difrntl wbc Ma'En Al-Dabbas Work Phone: Start: 06-09-2019 Gluc bld gluc mntr d ev cleared fda spec home use OSCAR HARP Start: 06-09-2019 INTAKE AND OUTPUT OSCAR HARP Start: 06-09-2019 Gluc bld gluc mntr d ev cleared fda spec home use OSCAR HARP Start: 06-08-2019 Glucose blood reagent strip OSCAR HARP Start: 06-08-2019 Gluc bld gluc mntr d ev cleared fda spec home use OSCAR HARP Start: 06-08-2019 Glucose blood reagent strip Oscar Harp Work Phone: Start: 06-08-2019 IP CONSULT TO HOME C ARE NEEDS OSCAR HARP Start: 06-08-2019 Glucose blood reagent strip OSCAR HARP Start: 06-08-2019 Glucose blood reagent strip Oscar Harp Work Phone: Start: 06-08-2019 Glucose blood reagent strip OSCAR HARP Start: 06-08-2019 Dup-scan xtr veins c omplete bilateral study OSCAR HARP Start: 06-08-2019 Glucose blood reagent strip Oscar Harp Work Phone: Start: 06-08-2019 IP CONSULT TO DIABET ES EDUCATOR OSCAR HARP Start: 06-08-2019 Dup-scan xtr veins c omplete bilateral study Dylon Vick Work Phone: Start: 06-08-2019 Gluc bld gluc mntr d ev cleared fda spec home use [facility]SCAR HARP Start: 06-08-2019 Glucose blood reagent strip OSCAR HARP Start: 06-08-2019 HOME BIPAP OR CPAP OSCAR HARP Start: 06-08-2019 INCENTIVE SPIROMETRY RT OSCAR HARP Start: 06-08-2019 INITIATE OXYGEN THER APY PROTOCOL OSCAR HARP Start: 06-08-2019 IP CONSULT TO PHYSIC AL MEDICINE REHAB OSCAR HARP Start: 06-08-2019 DIET CARB CONTROL OSCAR HARP Start: 06-08-2019 Glucose blood reagent strip Oscar Harp Work Phone: Start: 06-08-2019 Gluc bld gluc mntr d ev cleared fda spec home use OSCAR HARP Start: 06-08-2019 Assay of magnesium OSCAR HARP Start: 06-08-2019 Assay of phosphorus inorganic OSCAR HARP Start: 06-08-2019 Basic metabolic pane l calcium total OSCAR HARP Start: 06-08-2019 Blood count complete auto&auto difrntl wbc OSCAR HARP Start: 06-08-2019 DAILY WEIGHTS OSCAR Cr Start: 06-08-2019 INTAKE AND OUTPUT OSCAR HARP Start: 06-08-2019 Gluc bld gluc mntr d ev cleared fda spec home use OSCAR HARP Start: 06-08-2019 Assay of magnesium Namita n Al-Dabbas Work Phone: Start: 06-08-2019 Assay of phosphorus inorganic VinayEn Al-Dabbas Work Phone: Start: 06-08-2019 Basic metabolic pane l calcium total Emmett'En Al-Dabbas Work Phone: Start: 06-08-2019 Blood count complete auto&auto difrntl wbc Emmett'Nicanor Al-Dabbas Work Phone: Start: 06-07-2019 Glucose blood reagent strip OSCAR HARP Start: 06-07-2019 Gluc bld gluc mntr d ev cleared fda spec home use OSCAR HARP Start: 06-07-2019 Glucose blood reagent strip Oscar Harp Work Phone: Start: 06-07-2019 ADVANCE DIET TOLE RATED (NURSING COMMUNICATION) OSCAR HARP Start: 06-07-2019 ASSESS GAG REFLEX [facility]SCAR HARP Start: 06-07-2019 FULL CODE OSCAR HARP Start: 06-07-2019 INITIATE OXYGEN THER APY PROTOCOL OSCAR HARP Start: 06-07-2019 INTAKE AND OUTPUT OSCAR AHRP Start: 06-07-2019 NEURO/VASCULAR CHECKS P AUL LOYD Start: 06-07-2019 NOTIFY PHYSICIAN (SPECIFY) OSCAR HARP Start: 06-07-2019 TELEMETRY MONITORING ROSIO HARP Start: 06-07-2019 UP WITH ASSISTANCE OSCAR HARP Start: 06-07-2019 VITAL SIGNS OSCAR HARP Start: 06-07-2019 WOUND CARE OSCAR HARP Start: 06-07-2019 TELEPHONE COLLECTOR REPORT OSCAR RITTER SUSHILA Start: 06-07-2019 Glucose blood reagent strip Oscar Harp Work Phone: Start: 06-07-2019 TELEPHONE COLLECTOR REPORT Hpf Sca nning Start: 06-07-2019 VERIFY INFORMED CONSENT OSCAR HARP Start: 06-07-2019 R & l hrt cath w/njx l ventriculog img s&i OSCAR HARP Start: 06-07-2019 Glucose blood reagent strip OSCAR HARP Start: 06-07-2019 Mri brain brain stem w/o contrast material OSCAR HARP Start: 06-07-2019 Glucose blood reagent strip Oscar Harp Work Phone: Start: 06-07-2019 Gluc bld gluc mntr d ev cleared fda spec home use [facility]SC[facility] HARP Start: 06-07-2019 NURSING COMMUNICATION Ciera HARP Start: 06-07-2019 Mri brain brain stem w/o contrast material Duke Buckleyon Work Phone: Start: 06-07-2019 HOME BIPAP OR CPAP OSCAR HARP Start: 06-07-2019 INCENTIVE SPIROMETRY RT OSCAR HARP Start: 06-07-2019 Glucose blood reagent strip OSCAR HARP Start: 06-07-2019 Glucose blood reagent strip Oscar Harp Work Phone: Start: 06-07-2019 Assay of magnesium OSCAR HARP Start: 06-07-2019 Assay of phosphorus inorganic OSCAR HARP Start: 06-07-2019 Basic metabolic pane l calcium total OSCAR HARP Start: 06-07-2019 Blood count complete auto&auto difrntl wbc OSCAR HARP Start: 06-07-2019 HOME BIPAP OR CPAP OSCAR HARP Start: 06-07-2019 Gluc bld gluc mntr d ev cleared fda spec home use [facility]SC[facility] HARP Start: 06-07-2019 Assay of magnesium Vipin Bryn Morales Work Phone: Start: 06-07-2019 Assay of phosphorus inorganic Vipin Bryn Morales Work Phone: Start: 06-07-2019 Basic metabolic pane l calcium total Ma'En Al-Dabbas Work Phone: Start: 06-07-2019 Blood count complete auto&auto difrntl wbc Ma'En Al-Dabbas Work Phone: Start: 06-07-2019 Gluc bld gluc mntr d ev cleared fda spec home use [facility]SCAR HARP Start: 06-06-2019 TRANSFER PATIENT OSCAR Dimitri MIGUELMariia Start: 06-06-2019 Ct head/brain w/o co ntrast material [facility]SCAR HARP Start: 06-06-2019 MISCELLANEOUS NURSIN G CARE ORDER (SPECIFY) OSCAR HARP Start: 06-06-2019 Glucose blood reagent strip OSCAR HARP Start: 06-06-2019 ELEVATE HEELS OFF OF BED OSCAR HARP Start: 06-06-2019 HEAD OF BED 60 DEGRE ES OR LESS OSCAR HARP Start: 06-06-2019 NURSING COMMUNICATION P JACQUIE LOYD Start: 06-06-2019 TURN PATIENT OSCAR HARP Start: 06-06-2019 Ct head/brain w/o co ntrast material Vipin Bryn Morales Work Phone: Start: 06-06-2019 Gluc bld gluc mntr d ev cleared fda spec home use OSCAR LOYD Start: 06-06-2019 Glucose blood reagent strip Oscar Loyd Work Phone: Start: 06-06-2019 LAB SCANNED REPORT OSCAR LOYD Start: 06-06-2019 Glucose blood reagent strip OSCAR LOYD Start: 06-06-2019 LAB SCANNED REPORT Hpf Scanning Start: 06-06-2019 Glucose blood reagent strip Oscar Harp Work Phone: Start: 06-06-2019 Echo transesophag r- t 2d w/prb img acquisj i&r OSCAR LOYD Start: 06-06-2019 IP CONSULT TO CARDIOLOGY OSCAR HARP Start: 06-06-2019 Glucose blood reagent strip OSCAR HARP Start: 06-06-2019 Assay of magnesium OSCAR HARP Start: 06-06-2019 Assay of phosphorus inorganic OSCAR HARP Start: 06-06-2019 Basic metabolic pane l calcium total OSCAR LOYD Start: 06-06-2019 Blood count complete auto&auto difrntl wbc OSCAR HARP Start: 06-06-2019 Hemoglobin glycosylated a1c OSCAR HARP Start: 06-06-2019 Lipid panel OSCAR HARP Start: 06-06-2019 Gluc bld gluc mntr d ev cleared fda spec home use OSCAR LOYD Start: 06-06-2019 INCENTIVE SPIROMETRY RT OSCAR HARP Start: 06-06-2019 End: 06-06-2019 Glucose blood reagent strip Oscar Harp Work Phone: Start: 06-06-2019 Assay of magnesium Vipin Bryn Morales Work Phone: Start: 06-06-2019 Assay of phosphorus inorganic Vipin Bryn Morales Work Phone: Start: 06-06-2019 Basic metabolic pane l calcium total Vipin Bryn Morales Work Phone: Start: 06-06-2019 Blood count complete auto&auto difrntl wbc Vipin Bryn Morales Work Phone: Start: 06-06-2019 Hemoglobin glycosylated a1c Vipin Bryn Morales Work Phone: Start: 06-06-2019 Lipid panel Vipin Wilcox brandan Morales Work Phone: Start: 06-06-2019 Gluc bld gluc mntr d ev cleared fda spec home use OSCAR HARP Start: 06-06-2019 ENCOURAGE DEEP BREAT MATTHEW AND COUGHING OSCAR HARP Start: 06-06-2019 INCENTIVE SPIROMETRY RT OSCAR HARP Start: 06-06-2019 INSERT PERIPHERAL IV ROSIO HARP Start: 06-06-2019 IP CONSULT TO PHARMACY OSCAR HARP Start: 06-06-2019 NURSING SWALLOW ASSESSMENT OSCAR HARP Start: 06-06-2019 OT EVAL AND TREAT OSCAR HARP Start: 06-06-2019 PLACE INTERMITTENT PNEUMATIC COMPRESSION DEVICE OSCAR HARP Start: 06-06-2019 PROVIDE PATIENT EDUC ATION MATERIALS OSCAR HARP Start: 06-06-2019 PT EVAL AND TREAT OSCAR HARP Start: 06-06-2019 PULSE OXIMETRY, CONTINUOUS OSCAR HARP Start: 06-06-2019 REASON FOR NO CHEMIC AL VTE PROPHYLAXIS OSCAR HARP Start: 06-06-2019 ADOPTION COORDINATOR EVAL AND TREAT OSCAR HARP Start: 06-06-2019 ELEVATE HOB OSCAR HARP Start: 06-06-2019 NEURO/VASCULAR CHECKS P JACQUIE HARP Start: 06-06-2019 NO ANTICOAGULANTS OSCAR HARP Start: 06-06-2019 NOTIFY PHYSICIAN (SPECIFY) OSCAR HARP Start: 06-06-2019 NURSING COMMUNICATION Ciera HARP Start: 06-06-2019 TELEMETRY MONITORING ROSIO HARP Start: 06-06-2019 VITAL SIGNS OSCAR HARP Start: 06-06-2019 VITAL SIGNS - NOTIFY MD OSCAR HARP Start: 06-06-2019 Iadna s aureus methi cillin resist amp probe tq OSCAR HARP Start: 06-06-2019 Gluc bld gluc mntr d ev cleared fda spec home use OSCAR HARP Start: 06-06-2019 Glucose blood reagent strip OSCAR HARP Start: 06-06-2019 PATIENT STATUS (DIRECT) OSCAR HARP Start: 06-06-2019 Speech and language therapy regime Evans Gentile Work Phone: Start: 06-06-2019 Iadna s aureus methi cillin resist amp probe tq iVpin Petersen Work Phone: Start: 06-06-2019 Gluc bld gluc mntr d ev cleared fda spec home use Mason Aixa Work Phone: Start: 06-06-2019 Glucose blood reagent strip Anselmo Garza Work Phone: Start: 06-06-2019 Ct angiography head w/contrast/noncontrast OSCAR HARP Start: 06-06-2019 Ct head/brain w/o co ntrast material OSCAR HARP Start: 06-05-2019 Radiologic exam ches t single view OSCAR HARP Start: 06-05-2019 Ecg routine ecg w/le ast 12 lds w/i&r OSCAR HARP Start: 06-05-2019 EKG REPORT OSCAR HARP Start: 06-05-2019 ADVANCE DIET TOLE RATED (NURSING COMMUNICATION) OSCAR HARP Start: 06-05-2019 ELEVATE HOB OSCAR HARP Start: 06-05-2019 FALL PRECAUTIONS OSCAR WILLIS Start: 06-05-2019 INSERT PERIPHERAL IV PA ALLISON HARP Start: 06-05-2019 IP CONSULT TO PHARMACY OSCAR HARP Start: 06-05-2019 NEURO/VASCULAR CHECKS P JACQUIE HARP Start: 06-05-2019 NO ANTICOAGULANTS OSCAR HARP Start: 06-05-2019 NOTIFY PHYSICIAN (SPECIFY) OSCAR HARP Start: 06-05-2019 NURSING COMMUNICATION P JACQUIE HARP Start: 06-05-2019 PULSE OXIMETRY OSCAR QUINONEZ Start: 06-05-2019 TELEMETRY MONITORING ROSIO HARP Start: 06-05-2019 VITAL SIGNS OSCAR HARP Start: 06-05-2019 VITAL SIGNS - NOTIFY MD OSCAR HARP Start: 06-05-2019 Lipid panel OSCAR HARP Start: 06-05-2019 ANION GAP (CALC) POC ROSIO HARP Start: 06-05-2019 Blood count hemoglobin OSCAR HARP Start: 06-05-2019 Calcium ionized OSCAR RITTER SUSHILA Start: 06-05-2019 Chloride other source P JACQUIE HARP Start: 06-05-2019 CREATININE W/GFR POI NT OF CARE OSCAR HARP Start: 06-05-2019 Gluc bld gluc mntr d ev cleared fda spec home use OSCAR HARP Start: 06-05-2019 LACTIC ACID,POINT OF CARE OSCAR HARP Start: 06-05-2019 Potassium serum plasma/whole blood OSCAR HARP Start: 06-05-2019 Sodium serum plasma or whole blood OSCAR HARP Start: 06-05-2019 VENOUS BLOOD GAS, PO INT OF CARE OSCAR HARP Start: 06-05-2019 Glucose blood reagent strip OSCAR HARP Start: 06-05-2019 Ct angiography neck w/contrast/noncontrast Mason Kruse Work Phone: Start: 06-05-2019 Ct head/brain w/o co ntrast material Mason Kruse Work Phone: Start: 06-05-2019 Radiologic exam ches t single view Mason Kruse Work Phone: Start: 06-05-2019 Ecg routine ecg w/le ast 12 lds i&r only Mason Kruse Work Phone: Start: 06-05-2019 EKG REPORT Hpf Scanni ng Start: 06-05-2019 STROKE PANEL Mason christian Work Phone: Start: 06-05-2019 ANION GAP (CALC) POC Jhoana Garza Work Phone: Start: 06-05-2019 Blood count hemoglobin Anselmo Garza Work Phone: Start: 06-05-2019 CALCIUM, IONIC (POC) Wi cecil Garza Work Phone: Start: 06-05-2019 Chloride [Moles/Vol] Wi cecil Garza Work Phone: Start: 06-05-2019 CREATININE W/GFR POI NT OF CARE Anselmo Garza Work Phone: Start: 06-05-2019 Gluc bld gluc mntr d ev cleared fda spec home use Anselmo Garza Work Phone: Start: 06-05-2019 LACTIC ACID,POINT OF CARE Anselmo Garza Work Phone: Start: 06-05-2019 Potassium [Moles/Vol] W illiam Kayla Work Phone: Start: 06-05-2019 Sodium [Moles/Vol] Will adriana Kayla Work Phone: Start: 06-05-2019 VENOUS BLOOD GAS, PO INT OF CARE Anselmo Garza Work Phone: Start: 06-05-2019 Glucose blood reagent strip Anselmo Garza Work Phone: Start: 08-22-2011 Colonoscopy Curtis IBARRA LL Arthroplasty of knee Milvia Singleton ue Arthroplasty of knee Curtis GRACIA Arthroscopy of shoulder Jamie GRACIA Excision of lumbar intervertebral disc Curtis GRACIA Comment on above: L4-5 Extraction of cataract Milvia Palomo Insertion of cathete r into spinal canal for infusion of therapeutic substance Curtis GRACIA Procedure on back Milvia Palomo Plan of Treatment Date Care Activity Detail Author Start: 05-26-2022 MR Prostate WO and W contrast IV [facility] Start: 05-26-2022 MR prostate wo/w con MR prostate wo/ w con [facility] Start: 06-08-2020 Creatinine monitoring Creatinine mon itoring [place], [place] Start: 06-08-2020 Potassium monitoring Potassium monit [place]ing [place] Start: 06-06-2020 Lipid screen Lipid screen [place], [place] Start: 09-06-2019 A1C test (Diabetic o r Prediabetic) A1C test (Diabetic or Prediabetic) [place] Start: 06-05-2019 Annual Wellness Visi t (AWV) Annual Wellness Visit (AWV) [place] Start: 04-22-2019 Influenza vaccination Flu vaccine (# 1) [place] Start: 11-08-2005 Colon cancer screen colonoscopy Colon cancer screen colonoscopy [place] Start: 11-08-2005 Shingles Vaccine (1 of 2) Shingles V accine (1 of 2) [place] Start: 11-08-1974 DTaP/Tdap/Td vaccine (1 - Tdap) DTaP/Tdap/Td vaccine (1 - Tdap) [place] Start: 11-08-1973 Diabetic microalbumi heather test Diabetic microalbuminuria test [place] Start: 11-08-1970 HIV screen HIV screen [place], [place] Start: 11-08-1965 [object Object] Diabetic foot exam [place], [place] Start: 11-08-1965 Diabetic retinal exam Diabetic retin al exam [place], [place] Start: 1955 Hepatitis C screen Hepatitis C scree [place] End: 06-09-2019 ANTI-PHOSPHOLIPID AB ANTI-PHOSPHOLIPID AB Lab Routine One Time for 1 Occurrences starting 06/09/2019 until 06/09/2019 [place] Comment on above: One Time for 1 Occur rences starting 06/09/2019 until 06/09/2019 ANTI-PHOSPHOLIPID AB ANTI-PHOSPH OLIPID AB Lab Routine 06/09/2019 9:41 AM EDT [place] Basic metabolic 2000 panel Basic Metabolic Panel Lab Routine Daily until discontinued starting 06/07/2019, 3 completed [place] Comment on above: Daily until disconti nued starting 06/07/2019, 3 completed CBC Auto Differential CBC Auto D ifferential Lab Routine Daily until discontinued starting 06/07/2019, 3 completed [place] Comment on above: Daily until disconti nued starting 06/07/2019, 3 completed End: 06-07-2019 Diagnostic Cardiac Belt Worker Procedure Diagnostic Cardiac Belt Worker Procedure Cardiac Cath Routine One Time for 1 Occurrences starting 06/07/2019 until 06/07/2019 [place] Comment on above: One Time for 1 Occur rences starting 06/07/2019 until 06/07/2019 End: 06-09-2019 Dilute Deepak Viper Dilute Deepak Viper Lab Routine One Time for 1 Occurrences starting 06/09/2019 until 06/09/2019 [place] Comment on above: One Time for 1 Occur rences starting 06/09/2019 until 06/09/2019 Dilute Deepak Viper Dilute Jaime ell Viper Lab Routine 06/09/2019 9:41 AM EDT [place] End: 06-09-2019 FACTOR 5 LEIDEN FACTOR 5 LEIDEN Lab Routine One Time for 1 Occurrences starting 06/09/2019 until 06/09/2019 [place] Comment on above: One Time for 1 Occur rences starting 06/09/2019 until 06/09/2019 End: 06-09-2019 FACTOR 8 ASSAY FACTOR 8 ASSAY Lab Routine One Time for 1 Occurrences starting 06/09/2019 until 06/09/2019 [place] Comment on above: One Time for 1 Occur rences starting 06/09/2019 until 06/09/2019 FACTOR 8 ASSAY FACTOR 8 ASSAY L ab [facility] Home BIPAP or CPAP Respiratory Care Routine Daily until discontinued starting 06/07/2019 [facility] [place] Comment on above: Daily until disconti nued starting 06/07/2019 Incentive spirometry Incentive s pirometry Respiratory Care Routine Daily until discontinued [facility]06/[facility] on above: Daily until disconti nued starting 06/06/2019 Initiate Oxygen Ther apy Protocol Initiate Oxygen Therapy Protocol Respiratory Care Routine Daily until discontinued starting 06/07/2019 [facility] [place] Comment on above: Daily until disconti nued starting 06/07/2019 [facility]: 4X Daily (AC & HS) u ntil discontinued starting 06/06/2019 As Needed until disc ontinued starting 06/06/2019 End: 06-09-2019 Protein C Functional Protein C Functional Lab Routine One Time for 1 Occurrences starting 06/09/2019 until 06/09/2019 [facility] on above: One Time for 1 Occur rences starting 06/09/2019 until 06/09/2019 Protein C Functional Protein C F unctional Lab [facility]: 06-09-2019 Protein S Functional Protein S Functional Lab Routine One Time for 1 Occurrences starting 06/09/2019 until 06/09/2019 [facility] [place] Comment on above: One Time for 1 Occur rences starting 06/09/2019 until 06/09/2019 Protein S Functional Protein S F unctional Lab Routine 06/09/2019 9:41 [facility] End: 06-09-2019 Prothrombin Gene Mutation Prothrombin Gene Mutation Lab Routine One Time for 1 Occurrences starting 06/09/2019 until 06/09/2019 [place] Comment on above: One Time for 1 Occur rences starting 06/09/2019 until 06/09/2019 End: 06-07-2019 Pulse oximetry, continuous Pulse oximetry, continuous Respiratory Care Routine Every 4hr for 24 Hours starting 06/06/2019 until 06/07/2019 [place] Comment on above: Every 4hr for 24 Vickey rs starting 06/06/2019 until 06/07/2019 Immunizations Immunization Date Immunization Notes Care Provider Tyra dailey 03-20-2013 pneumococcal polysaccharide vaccine, 23 valent Milvia Palomo [facility] Payers Date Payer Category Payer Private Health Insurance [id number] Self-pay [id number] 2018 Medicare MEDICARE MEDICAR E PART A AND B xxxxxxxxxxx 2018-Present [phone] [place] [address] xxxxxxxxxxx [id number] 1959 Medicare [id number] 1959 Unknown [id number] 1955 Unknown [id number] 2.840.1.709805.3.579.2 .175 1955 Unknown [id number] .840.1.124083.3.579.2 .593 1955 Unknown [id number] .840.1.141960.3.579.2 .593 1955 Unknown [id number] ..840.1.443203.3.579.2 .593 1955 Unknown [id number] .16.840.1.963423.3.579.2 .593 1955 Unknown [id number] .16840.1.382898.3.579.2 .593 1955 Unknown [id number] 2.840.1.168696.3.579.2 .593 1955 Unknown [id number] 2.16.840.1.503977.3.579.2 .593 1955 Unknown [id number] 2.16.840.1.183197.3.579.2 .593 1955 Unknown [id number] 2.16.840.1.718397.3.579.2 .727 1955 Unknown [id number] 2.16.840.1.281365.3.579.2 .72 1955 Unknown [id number] 2.16.840.1.567035.3.579.2 .72 1955 Unknown [id number] 2.16.840.1.524132.3.579.2 .72 1955 Unknown [id number] 2.16.840.1.068475.3.579.2 .72 1955 Unknown [id number] 2.16.840.1.988266.3.579.2 .72 1955 Unknown [id number] 2.16.840.1.428516.3.579.2 .72 1955 Unknown [id number] 2.16.840.1.056169.3.579.2 .72 1955 Unknown [id number] 2.16.840.1.495030.3.579.2 .72 1955 Unknown [id number] 2.16.840.1.030813.3.579.2 72 1955 Unknown [id number] 2.16.840.1.328426.3.579.2 .72 1955 Unknown [id number] 2.16.840.1.278605.3.579.2 .72 1955 Unknown [id number] 2.16.840.1.216928.3.579.2 .72 1955 Unknown [id number] 2.16.840.1.694915.3.579.2 .1259 1955 Unknown [id number] 2.16.840.1.742512.3.579.2 .1259 Medicare Medicare Outpatient [id number] Private Health Insurance [facility] [id number] Unknown [id number] 2.16.840.1.241600.3.579.2 .531 Unknown [id number] 2.16.840.1.592767.3.579.2 .531 Unknown [id number] 2.16.840.1.542848.3.579.2 .531 Social History Date Type Detail Facility Start: 06-06-2019 End: 04-21-2022 Tobacco smoking status KSIS Never smoker [facility] Start: 06-06-2019 [facility] intake [facility] Start: 06-05-2019 History SDOH Alcohol Frequency 1 [facility] Tobacco smoking status Never [facility] Start: 06-25-2021 End: 08-04-2022 Tobacco smoking status KSIS Ex-smoker (finding) [facility] Start: 1955 Sex Assigned At Male F [facility] Functional Status Date Assessment Result Facility 02-02-2023 Functional Status N/A [facility] 11-03-2022 Functional Status N/A [facility] 10-06-2022 Functional Status N/A [facility] 08-04-2022 Functional Status N/A [facility] 06-30-2022 Functional Status No [facility] 06-25-2022 [facility] Status N[facility] Functional Status N/A [facility] 04-21-2022 Functional Status N/A [facility] Clinical Notes 04-21-2022 to 07-27-2023 Note Date & Type Note Facility 07-27-2023 Note [facility] Department of Radiation Oncology [address] [place] [id number] Date of Service: 07/27/23 Patient Name: Eunice Marte Patient : 1955 Radiation Oncology ON-TREATMENT VISIT NOTE Diagnosis: 67-year-old man diagnosed in June 2022 with intermediate risk prostate cancer (cT2a N0 M0 Stage IIB, PSA 11.09 ng/mL, GG2) with a high-risk Decipher genomic score 0.73, receiving moderately hypofractionated external beam radiotherapy. Dose Accrued: Reviewed. Subjective: Patient is doing well, he will finish the course on Tuesday. He denies any new or worsening symptoms since last week. He reports improvement in the daytime storage LUTS since starting oxybutynin, which he is taking in the morning. He reports sleeping through the night. His energy level is stable. He is tolerating daily treatment set-up and delivery without issues. He moves his bowels regularly with no change in color/caliber/consistency. Daily routine largely unchanged. Objective: Visit Vitals BP 124/66 (BP Location: Right arm, Patient Position: Sitting, BP Cuff Size: Large adult) Pulse 81 Temp 37.2 ???C (98.9 ???F) (Oral) Resp 20 ECOG 2, well appearing, in NAD, sitting comfortably in a chair, grossly stable exam with no signs of RT induced toxicity. Plan: Continue radiotherapy as planned. Advised he limit fluids after 7 pm, and to empty the bladder completely before going to bed. Take oxybutynin at bedtime. Maricarmen Martinez MD Patient Care Team: Adilson Salazar MD as PCP - General Jose Ramos MD as Consulting Physician (Transplant Surgery) Phyllis Acosta MD as Consulting Physician (Urology) Maricarmen Martinez (Radiation Oncology) [facility] 12-06-2023 Note DEFENCE INTELLIGENCE ANALYST NOTE: Eunice is unaccompanied for this visit. Pt has completed fx RT to Prostate/Svs. Pt denies c/o pain, dysuria, hematuria, diarrhea, blood in stool, nocturia or fatigue. [facility] 07-21-2023 Note OTV prostate Symptoms are manageable ramses Stoner [facility] 07-21-2023 Note [facility] Department of Radiation Oncology [address] [place] [id number] Date of Service: 07/21/23 Patient Name: Eunice Marte Patient : 1955 Radiation Oncology ON-TREATMENT VISIT NOTE Diagnosis: 67-year-old man diagnosed in June 2022 with intermediate risk prostate cancer (cT2a N0 M0 Stage IIB, PSA 11.09 ng/mL, GG2) with a high-risk Decipher genomic score 0.73, receiving moderately hypofractionated external beam radiotherapy. Dose Accrued: Reviewed. Subjective: Patient is doing well, will finish the course in a couple of days. He denies any new or worsening symptoms since last week. He reports improvement in the daytime frequency since starting oxybutynin, which he is taking in the morning. He reports nocturia 2-3x, but attributes to not limiting fluids at night. His energy level is stable. He is tolerating daily treatment set-up and delivery without issues. He moves his bowels regularly with no change in color/caliber/consistency. Daily routine largely unchanged. Objective: Visit Vitals BP 140/79 (BP Location: Left arm, Patient Position: Sitting) Pulse 70 Temp 36.3 ???C (97.4 ???F) (Oral) ECOG 2, well appearing, in NAD, sitting comfortably in a chair, grossly stable exam with no signs of RT induced toxicity. Plan: Continue radiotherapy as planned. Advised he limit fluids after 7 pm, and to empty the bladder completely before going to bed. Take oxybutynin at bedtime. Maricarmen Martinez MD Patient Care Team: Adilson Salazar MD as PCP - General Jose Ramos MD as Consulting Physician (Transplant Surgery) Phyllis Acosta MD as Consulting Physician (Urology) Maricarmen Martinez (Radiation Oncology) [facility] 07-13-2023 Note DEFENCE INTELLIGENCE ANALYST: Prostate fx. Vitals WNL, rad site WNL. Pt cont with nocturia which was present prior to tx. Pt. Denies any dysuria, hematuria or diarrhea. Continues with fatigue. Is continuing with ADL's. No further complaints. [facility] 07-13-2023 Note [facility] t [facility] Department of Radiation Oncology [address] [place] [id number] Date of Service: 07/13/23 Patient Name: Eunice Marte Patient : 1955 Radiation Oncology ON-TREATMENT VISIT NOTE Diagnosis: 67-year-old man diagnosed in June 2022 with intermediate risk prostate cancer (cT2a N0 M0 Stage IIB, PSA 11.09 ng/mL, GG2) with a high-risk Decipher genomic score 0.73, receiving moderately hypofractionated external beam radiotherapy. Dose Accrued: Reviewed. Subjective: Patient is doing well and denies any new or worsening symptoms since last week. He reports improvement in the daytime frequency since starting oxybutynin, which he is taking in the morning. He reports nocturia 2-3x. His energy level is stable. He is tolerating daily treatment set-up and delivery without issues. He moves his bowels regularly with no change in color/caliber/consistency. Daily routine largely unchanged. Objective: Visit Vitals BP 137/70 Pulse 71 Resp 16 ECOG 2, well appearing, in NAD, sitting comfortably in a chair, grossly stable exam with no signs of RT induced toxicity. Plan: Continue radiotherapy as planned. Take oxybutynin at bedtime instead. Advised he limit fluids after 7 pm, and to empty the bladder completely before going to bed. Maricarmen Martinez MD Patient Care Team: Adilson Salazar MD as PCP - General Jose Ramos MD as Consulting Physician (Transplant Surgery) Phyllis Acosta MD as Consulting Physician (Urology) Maricarmen Martinez (Radiation Oncology) [facility] 07-07-2023 Note DEFENCE INTELLIGENCE ANALYST NOTE: Eunice is accompanied by Shayy for this visit. Pt has completed 08/18 fx RT to Prostate/Svs. Pt denies c/o pain, urinary frequency, urgency, hematuria, burning with urination, melena or hematochezia. Pt states he has good urinary stream. Pt reports nocturia 2-3 x night. Pt states he has not noticed any improvement in storage symptoms while taking oxybutynin. Pt states normal bowel movements. Reports mild fatigue. [facility] 07-07-2023 Note [facility] t [facility] Department of Radiation Oncology [address] [place] [id number] Date of Service: 07/07/23 Patient Name: Eunice Marte Patient : 1955 Radiation Oncology ON-TREATMENT VISIT NOTE Diagnosis: 67-year-old man diagnosed in June 2022 with intermediate risk prostate cancer (cT2a N0 M0 Stage IIB, PSA 11.09 ng/mL, GG2) with a high-risk Decipher genomic score 0.73, receiving moderately hypofractionated external beam radiotherapy. Dose Accrued: Reviewed. Subjective: Patient is doing well and denies any new or worsening symptoms since last week. Oxybutynin has helped with bothersome storage symptoms, especially nocturia. He is sleeping better as a result, and his energy level during daytime has improved as a result. He is tolerating daily treatment set-up and delivery without issues. He moves his bowels regularly with no change in color/caliber/consistency. Daily routine largely unchanged. Objective: Visit Vitals BP 143/84 (BP Location: Left arm, Patient Position: Sitting, BP Cuff Size: Large adult) Pulse 81 Temp 36.9 ???C (98.4 ???F) (Oral) Resp 18 ECOG 2, well appearing, in NAD, sitting comfortably in a chair, grossly stable exam with no signs of RT induced toxicity. Plan: Continue radiotherapy as planned. Advised he limit fluids after 7 pm, and to empty the bladder completely before going to bed. Maricarmen Martinez MD Patient Care Team: Adilson Salazar MD as PCP - General Jose Ramos MD as Consulting Physician (Transplant Surgery) Phyllis Acosta MD as Consulting Physician (Urology) Maricarmen Martinez (Radiation Oncology) [facility] 07-01-2023 Note Rehab Services Rad/O ga Clinic Screen Therapy Screen Completed-No Needs at this time Assessed patient for therapy needs this date. Pt does not present with any mobility/ADL or speech and swallowing needs at this time. Patient utilizes cane for ambulation. Patient is currently completing all ADL's independently and navigating environment/ambulating without concerns, denies recent falls. Therapy services will continue to follow. Patient provided with information to get in touch with therapy if functional concerns arise-Physician Aware. Brandon Trejo MOT, OTR/L, CLT [facility] 06-30-2023 Note Accompanied by grand daughter, Jill. Denies urgency, incomplete emptying, burning. States has increased frequency, nocturia 4-5 times per night. Denies diarrhea. Denies hematuria or hematochezia. States has noticed increase in fatigue. Encouraged to take a walk/increase activity during day. Denies dyspnea or cough. [facility] 06-30-2023 Note [facility] Department of Radiation Oncology [address] [place] [id number] Date of Service: 06/30/23 Patient Name: Eunice Marte Patient : 1955 Radiation Oncology ON-TREATMENT VISIT NOTE Diagnosis: 67-year-old man diagnosed in June 2022 with intermediate risk prostate cancer (cT2a N0 M0 Stage IIB, PSA 11.09 ng/mL, GG2) with a high-risk Decipher genomic score 0.73, receiving moderately hypofractionated external beam radiotherapy. Dose Accrued: Reviewed. Subjective: Patient is doing well, except he's noticing more storage LUTS. He has stable fatigue. He is tolerating daily treatment set-up and delivery without issues. He takes tamsulosin and Myrbetric. He moves his bowels regularly with no change in color/caliber/consistency. Daily routine largely unchanged except he is more tired. Objective: Visit Vitals BP 136/78 (BP Location: Left arm, Patient Position: Sitting, BP Cuff Size: Adult) Pulse 76 Temp 37.1 ???C (98.7 ???F) (Oral) Resp 16 ECOG 2, well appearing, in NAD, sitting comfortably in a chair, grossly stable exam with no signs of RT induced toxicity. Plan: Continue radiotherapy as planned. Advised he limit fluids after 7 pm, and to empty the bladder completely before going to bed. Will Rx low dose oxybutynin to take at bedtime. Maricarmen Martinez MD Patient Care Team: Adilson Salazar MD as PCP - General Jose Ramos MD as Consulting Physician (Transplant Surgery) Phyllis Acosta MD as Consulting Physician (Urology) Maricarmen Mratinez (Radiation Oncology) [facility] 06-23-2023 Note DEFENCE INTELLIGENCE ANALYST: Prostate 11/16 fx. Pt vitals with bp above baseline, pt remains asymptomatic. Pt. States he did not take his bp med and will do so when he returns home. Pt. Denies any difficulties urinating, diarrhea or pain. No further complaints at this time. [facility] 06-23-2023 Note [facility] Department of Radiation Oncology [address] [place] [id number] Date of Service: 06/23/23 Patient Name: Eunice Marte Patient : 1955 Radiation Oncology ON-TREATMENT VISIT NOTE Diagnosis: 67-year-old man diagnosed in June 2022 with intermediate risk prostate cancer (cT2a N0 M0 Stage IIB, PSA 11.09 ng/mL, GG2) with a high-risk Decipher genomic score 0.73, receiving moderately hypofractionated external beam radiotherapy. Dose Accrued: Reviewed. Subjective: Patient is doing well, except he's noticing more fatigue than usual. He is tolerating daily treatment set-up and delivery without issues. In terms of LUTS, denies new symptoms. He moves his bowels regularly with no change in color/caliber/consistency. Daily routine largely unchanged except he is more tired. Objective: Visit Vitals BP (!) 172/102 (BP Location: Left arm) Pulse 78 Temp 36.7 ???C (98.1 ???F) Resp 16 ECOG 2, well appearing, in NAD, sitting comfortably in a chair, grossly stable exam with no signs of RT induced toxicity. Plan: Continue radiotherapy as planned. I reiterated the importance of having a comfortably full bladder for the daily treatments (to limit acute GI toxicity, and acute + late toxicity). We also reviewed the anticipated side effects over the next few weeks, and the trajectory of recovery. Patient's and his 's questions were answered to their satisfaction. Patient verbalized a good understanding to everything. Maricarmen Martinez MD Patient Care Team: Adilson Salazar MD as PCP - General Jose Ramos MD as Consulting Physician (Transplant Surgery) Phyllis Acosta MD as Consulting Physician (Urology) Maricarmen Martinez (Radiation Oncology) [facility] 06-07-2023 Note aPATIENT: Eunice noble DATE OF : 1955 DATE OF VISIT: 06/07/23 Urology Clinic H&P PHYLLIS ACOSTA M.D., F.A.C.S. 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 Eunice Marte is a 67 y.o. -Surinamese male with history of HTN, HLD, Diabetes Mellitus Type 2, Stroke (04/2015 resulted in right sided weakness since has improved), CAD, TN in 2021 on ASA 81mg s/p implantable loop recorder, LE DVT (not on current anticoagulation), Asthma, ALLISON on CPAP, GERD, BPH, ED s/p placement of IPP in 2012, and unfavorable intermediate risk prostate cancer. He presents for follow-up. Mr. Marte was noted to have an elevated PSA 11.09 ng/mL on 01/26/2022 in the setting of reportedly prior negative TRUS prostate biopsy on 08/2020. An outside MRI prostate on 05/26/2022 revealed a prostate volume 48 mL, a 0.8 x 0.8 cm lesion was identified in anterior aspect of left PZ at mid gland with MRI characteristics of PI-RADS 4. No evidence of EPE, SVI, adenopathy. Hypointense lesion involving right ischial tuberosity noted possibly suspicious for metastatic disease. A UroNav MRI/ultrasound fusion prostate biopsy via transperineal approach performed by local urologist Milvia Daniel MD on 07/06/2022 at [facility] for a total of 24 cores (12 systematic cores x2 and 4 cores obtained from MARÍA ELENA #1). Pathology per [facility] review revealed acinar adenocarcinoma of the prostate, Gilbert 3+4= 7; GG 2 involving / in MARÍA ELENA#1 up to 6mm or 50% of tissue (since MARÍA ELENA#1 sampled more than once), and in (Left Anterior Medical) up to 10 mm or 91% of tissue (since each systematic biopsy site sampled twice). PNI present in both cores without cribriform histology. A CT abdomen and pelvis with IV contrast on 08/06/2022 revealed circumferential bladder wall thickening, sigmoid diverticulosis, heterogenous bone marrow activity within the right ilium asymmetric compared to left suggestive of Paget's disease but no significant enlargement of the ilium. Subsequently, an outside PSMA PET/CT scan obtained on 09/20/2022 revealed subtle focal PSMA activity in anterior aspect of left prostate consistent with known neoplasm. No PSMA evidence of local or distant metastatic disease. 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 He was counseled for treatment options of surgery versus radiation by his urologist and was referred for consideration of Retzius sparing prostatectomy. At this visit, Mr. Marte presents for follow-up using a cane accompanied by his . It appears patient's memory has been affected by his a prior stroke, waxing and waning. He denies changes in health since last visit, specifically no gross hematuria, dysuria, however, has moderately significant LUTS, nocturia x2-3, AUA-SI 16/35, QoL 5 (unhappy) despite being on Myrbetriq 50 mg daily for urinary urgency/urge incontinence since his stroke. THANH 0/25 (has IPP in place, not currently sexually active since stroke in 2015). He can walks using a cane a couple of blocks before he gets tired. I had a long discussion with Mr. Marte and his regarding his a clinical presentation, symptoms, exam finding including BHUPINDER 12/07/2022 45 g prostate, with left side induration, no discrete nodule, cT2a. I reviewed and discussed outside sap bw consultant note, outside laboratory tests, outside imaging including MRI prostate and PSMA, pathology result of prostate biopsy, and decipher score. Mr. Marte has unfavorable intermediate risk prostate cancer by NCCN criteria since he has 2 intermediate risk factors (PSA 11.09 ng/mL and GG2 prostate cancer), however, decipher genomic commercial real estate sales manager designate patient as a high risk with a score of 0.73. His ECOG performance status 2. After thorough and prolonged discussion last visit and today, Mr. Marte and his opted to undergo EBRT to prostate and ADT with [facility]. He was approved for ADT with [employer] by patient medical receptionist assistant program however he has not picked it up yet. Repeat PSA 8.9 ng/mL, testosterone 283 ng/dL on . Mr. Marte had an ECHO 02/17/2023 revealed normal global left ventricular systolic function, EF 55 % visually, no regional wall motion abnormality. Lesican Stress Myocardial Perfusion Test 02/17/2023 revealed negative perfusion stress test for ischemia, abnormal myocardial perfusion with soft tissue artifact, Small moderate severity fixed inferolateral basal defect consisten with scar, global left ventricle systolic function is mildly decreased with EF 47%. He was cleared by cardiology, Dr. Messer on 03/17/2023 for radical prostatectomy as low to intermediate risk. I counseled patient extensively for yeison (more content not included)... [facility] 05-30-2023 Note [facility] Department of Radiation Oncology [address] [place] [id number] RADIATION ONCOLOGY CONSULTATION NOTE Date of Service: 05/30/23 Patient Name: Eunice Marte Patient : 1955 Diagnosis: 67-year-old man diagnosed in June 2022 with intermediate risk prostate cancer (cT2a N0 M0 Stage IIB, PSA 11.09 ng/mL, GG2) with a high-risk Decipher genomic score 0.73. Chief Complaint: I have prostate cancer. History of Present Illness: Patient presents in initial Radiation Oncology consultation as per the request of Dr. Acosta. We have been asked to evaluate the patient for radiotherapy options. Mr. Eunice Marte is a 67 y.o. man with extensive medical history (HTN, HLD, Diabetes Mellitus Type 2, CKD III, Stroke (04/2015 resulted in right sided weakness since has improved), CAD, TN in 2021 on ASA 81mg s/p implantable loop recorder, LE DVT (not on current anticoagulation), Asthma, ALLISON on CPAP, GERD, BPH, ED s/p placement of IPP in 2012), and a recent diagnosis of unfavorable intermediate risk prostate cancer. Patient presented with an elevated PSA a couple years ago, and has been closely monitored. Most recently, he had a [email or web address] genomic score testing, that yielded a high risk score. He is medically inoperable. Staging work-up demonstrated localized disease only. Symptom-ron, patient has mild to moderate lower urinary tract symptoms. On our AUA symptom score questionnaire, he is scored 7/35, however records demonstrate that his score was up to 16/35, with a qualityof life rated as 5 over the (unhappy) despite being on Myrbetriq 50 mg daily. Some of his lower urinary tract symptoms are secondary to to residual deficits from CVA in 2014. THANH score is 1, patient has an IPP in place, not sexually active since stroke in 2014. I reviewed the patient's oncologic, medical, surgical, social, and family history, as well as allergies/medications as per the medical record. Social Hx: He reports that he quit smoking about 8 years ago. His smoking use included cigarettes. He has a 5.00 pack-year smoking history. He has been exposed to tobacco smoke. He has never used smokeless tobacco. He reports current alcohol use of about 3.0 standard drinks of alcohol per week. He reports that he does not currently use drugs after having used the following drugs: Marijuana. Family Hx: no next of kin with malignancy. Review of Systems: I reviewed the Review of Systems with the patient. Clinically pertinent ones noted in the HPI and below. All others have been reviewed and are negative. RoS(+) frequency less than 50% of the time; nocturia 2-3; otherwise negative for incomplete bladder emptying, intermittency, urgency, weak stream, or straining. Patient is on Myrbetriq. Thanh score is 1/21 corresponding to severe ED. Patient is not sexually active since his CVA. Physical Exam: BP 148/77 (BP Location: Left arm, Patient Position: Sitting) Pulse 80 Temp 37.1 ???C (98.7 ???F) (Oral) Wt 100 kg (221 lb) BMI 29.97 kg/m??? GENERAL: ECOG 2, well-appearing, in no apparent distress, alert and fully oriented, answers questions appropriately, accompanied by . HEENT: Normocephalic, atraumatic, PER, EOMI, mucous membranes moist, no suspicious asymmetry or abnormal mass lesions. NECK: No cervical or supraclavicular lymphadenopathy. ABD: No visceromegaly or masses. EXTREMITIES: Normal range of motion, no cyanosis/clubbing/edema. Uses a cane to assist with ambulation. Pityriasis versicolor appreciated on forearms bilaterally. LYMPH: No appreciable adenopathy. 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 PSYCH: Appropriate affect for the clinical situation. Insight and judgment not impaired. LABS: PSATrend in ng/mL PSA 8.1 04/12/2023, testosterone 205, pre-ADT PSA 11.09 01/26/2022 PSA 6.8 10/03/2021, %fPSA 5.7 PSA 7.2 04/06/2021, % 5.3 %fSPA RADS: 09/20/2022 PSMA PET/CT scan revealed subtle focal PSMA activity in anterior aspect of left prostate consistent with known neoplasm. No PSMA evidence of local or distant metastatic disease. 05/26/2022 MRI prostate with and without contrast demonstrated prostate volume 48 mL. There is a focal area of T2 hyperintensity identified in the anterior aspect of the left peripheral zone at the level of the mid gland with associated restricted diffusion and low ADC value measuring 8 x 8 mm, with abnormal enhancement, PI-RADS 4. BPH changes were noted in the central/transitional zone. Seminal vesicles and neurovascular bundles were unremarkable. There was no evidence of lymphadenopathy. There was no focal lesion in the bladder. There is a T1/T2 hypointense lesion in the right ischial tuberosity. PATH: 07/06/2022 UroNav MRI/ultrasound fusion prostate biopsy via transperineal approach performed by urologist Dr. Milvia Daniel at [facility] (more content not included)... 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 Pt is here with his Shayy. Work note given to patient's . Sgoamanuel a [facility] 05-30-2023 Note PHYSICIAN CLINICAL T REATMENT PLANNING NOTE Identification: Eunice Marte is a 67 y.o. male with prostate cancer. Eunice has agreed to proceed with Radiation Therapy. The following represents the clinical treatment plan after I considered the patient???s clinical history, exam findings and relevant testing. Tests and supporting medical records were also reviewed to define the tumor location and extent of disease. Patient has not previously received radiation therapy. Patient has a loop recorder. ? N/A Radiation Therapy Planning Treatment Site 1 Treatment intent Curative Treatment site Bilateral Prostate Technique IGRT and IMRT IGRT localization type Daily CBCT Prescribed fraction dose 250 cGy Prescribed total dose 7000 cGy Prescribed number of fractions 28 Frequency Every 1 day Energy MV Patient position Supine, head first Immobilization Cradle I am ordering CT guidance for placement of XRT hernandes Yes Scan area: pelvis Isocenters: tentative isocenter Slice thickness: 3mm [facility] Scan requested: No Simulation will be performed on CT Scanner to accomplish a reproducible treatment position, to determine optimal beam arrangements and to .design beam modifying devices and immobilization devices: Alphacradle. Verification Sim (films Day): Yes Ongoing images: Daily image guided radiotherapy. Image fusion requested: will be performed using patient's MRI A 4D CT is not necessary. Additional comments: [facility] 04-13-2023 Note Email Cecily Bowden and [employer] when the patient is getting the medication. July Rankin, JackyD, BCACP 04/20/23 1:29 PM [facility] [phone] [facility] 04-13-2023 Note Health Care Law Specialist macario howe from [employer]. She was wondering if the patient has a high copay or if the medication is not covered. It looks like PA is approved, but insurance is requiring enrollment in [employer] and this information has been provided to patient. We need to find out if patient has enrolled in [employer]; if patient has a high copay then he will be eligible for the copay savings card that would bring copay to $10. Once funds are exhausted he should be able to apply for PAP at that time. I called patient and explained above. He is unsure whether or not he has completed enrollment (I let him know claire is still rejecting today). He will follow up with his and us once he is enrolled. We will continue to follow up with him as well (likely next week). Ivonne (from [employer]) called back to let me know insurance requires the third green party assistance because they do split billing between patient and savings card. Tenzin provided the following number to [employer] [phone] for patient to call and enroll. At this time we cannot provide any assistance until patient is enrolled in [employer]. Robb Jordan PharmD, [facility] Outpatient Clinical Pharmacist [facility] [phone] 05/24/23 11:39 AM [facility] 04-13-2023 Note Pt was approved for PAP because insurance is no longer covering it. is supposed to call PAP back today so they can discuss shipping out medication. July Rankin PharmD, JEFFREY 06/22/23 9:13 AM [facility] [phone] [facility] 04-13-2023 Note Spoke to pts Latanya johnson, she is going to call [employer] first thing in the AM and let us know what is going on. I think she filled out and sent paperwork to them when she sent us the [employer] support paperwork. I did the [employer] support paperwork in case they were going to require he be signed up for PAP and the insurance wouldn't pay, but sounds like that is not the case. Pts is suppose to call us tomorrow and let us know where they are at with signing up for [employer]. July Rankin PharmD, JEFFREY 05/26/23 4:48 PM [facility] [phone] [facility] 04-13-2023 Note Spoke to pts . S he mailed the forms back to us today and the forms to the insurance. I will get the doctor portion so everything is ready to go when we get his portion in the mail. July Rankin PharmD, BCACP 05/09/23 1:36 PM [facility] [phone] [facility] 04-13-2023 Note LM for pts to s ee if they have received the bridge program form I mailed and if they received the [facility] info and SCC from insurance. July Rankin PharmD, BCACP 05/03/23 9:28 AM [facility] [phone] [facility] 04-13-2023 Note Spoke to pts , t he insurance sent a questionnaire that she doesn't know how to fill out so they are sending her a hard copy. I found a bridge program form and am mailing that to them as she doesn't have an email. July Rankin, JackyD, BCACP 04/27/23 4:18 PM [facility] [phone] [facility] 04-13-2023 Note Specialty Pharmacy N ote: Or[facility] Supervising Physician & Clinic:?? Dr. Phyllis Acosta, Oncology [facility] is a 67 y.o. year old male patient with PMH of: Past Medical History: Diagnosis Date Asthma BPH (benign prostatic hyperplasia) CAD (coronary artery disease) CKD (chronic kidney disease), stage III ([facility]) Depression DM (diabetes mellitus) ([facility]) 2007 Type II Erectile dysfunction GERD (gastroesophageal reflux disease) H/O deep venous thrombosis HLD (hyperlipidemia) HTN (hypertension) Myocardial infarction ([facility]) 2021 ALLISON on CPAP Prostate cancer ([facility]) Status post placement of implantable loop recorder Stroke ([facility]) 04/2015 right sided weakness PharmD consulted for evaluation of Orgovyx for treatment of malignant neoplasm of prostate (Diagnosis Code: C61). ?? Prescribed Dosing: Orgovyx 120 mg, take 3 tablets (360 mg) by mouth on day 1 then take 1 tablet (12 mg) by mouth daily thereafter Previous medications tried: n/a No pertinent drug interactions were noted. No renal or hepatic dose adjustments necessary. Vitals: Ht Readings from Last 1 Encounters: 04/12/23 1.829 m (6') Wt Readings from Last 1 Encounters: 04/12/23 96.6 kg (213 lb) BMI Readings from Last 1 Encounters: 04/12/23 28.89 kg/m??? BP Readings from Last 1 Encounters: 04/12/23 145/85 Pulse Readings from Last 1 Encounters: 04/12/23 71 Pertinent labs:?? CMP: Lab Results Component Value Date GLUCOSE 170 (H) 03/02/2023 CALCIUM 9.7 03/02/2023 NA 138 03/02/2023 K 3.9 03/02/2023 CO2 28 03/02/2023 CL 101 03/02/2023 BUN 17 03/02/2023 CREATININE 1.15 03/02/2023 CBC: Lab Results Component Value Date WBC 6.04 02/02/2023 HGB 15.5 02/02/2023 HCT 46.8 02/02/2023 MCV 85.2 02/02/2023 PLT 200 02/02/2023 Evaluation: Per Dr. Acosta's note: patient has unfavorable intermediate risk prostate cancer, Stage IIB (cT2a, cN0, cM0, PSA 11.09 ng/mL, GG2) with a high-risk genomic score 0.73. Based on Dr. Acosta's assessment and labs confirming prostate cancer, patient is an appropriate candidate for this medication.? Follow-up: Called yesterday (04/12/2023) and spoke with patient's (Shayy) to let them know we received the Orgovyx prescription and were waiting for the visit note to close in order to submit the prior authorization. Note still open today, but most pertinent information is included, including plan. Submitted PA today with unsigned visit note. Will call patient or with any updates once we receive from insurance. Robb Jordan PharmD, [facility] Outpatient Clinical Pharmacist [facility] [phone] 04/13/23 11:52 AM [facility] 04-13-2023 Note Lm for pt or to see what [employer] SCC told them. July Rankin PharmD, JIGARCP 04/22/23 10:39 AM [facility] [phone] [facility] 04-13-2023 Note Received PA approval through [employer]. However, when I run the prescription it states that the pt must call [employer] and enroll. Most likely must get PAP. Might be able to get an override from insurance to allow to fill while working on PAP. However, pt must enroll with [employer] to start the process. I spoke to the patient's and explained this to the best of my ability. Will follow-up in a couple days to see if they need help with PAP forms or where it needs to be filled. July Rankin PharmD, JIGARCP 04/19/23 3:03 PM [facility] [phone] [facility] 04-13-2023 Note I received a fax fro m [facility] PAP stating the patient has been approved for PAP. LM with PAP to see why since he got it for $10 with the copay card. I tried to reach PAP yesterday and was on hold for 20 minutes. July Rankin PharmD, JIGARCP 06/21/23 9:52 AM [facility] [phone] [facility] 04-13-[address] Acosta called to ask if we had this patient's medication ready. I informed him that yes we do. He also asked about the application for the Orgov[facility] PAP that was emailed to him. I let him know to disregard it because from what I can see, the insurance has approved the medication. Malathi Cordova, [facility] 06/07/23 10:55 AM [facility] 04-13-2023 Note Patient's plann ing on picking up medication, hasn't yet. I reached out to [facility] office and let them know. Will no longer follow-up. July Rankin PharmD, JIGARCP 06/03/23 9:04 AM [facility] [phone] [facility] 04-13-2023 Note I was able to call t he number in the claim reject and finally able to get the medication to go through and they gave me copay card info. $10 copay, could mail out tomorrow. LM for pts . July Rankin PharmD, JEFFREY 06/01/23 10:13 AM [facility] [phone] [facility] 04-13-2023 Note Patient called back and she said that she signed him up and they will send her the card in the mail. Antoinette Gan, [facility] 05/31/23 2:37 PM [facility] 04-13-2023 Note Spoke to pts , s he will try to call [employer] now and call me back. She seems very overwhelmed. July Rankin PharmD, JIGARCP 05/31/23 2:20 PM [facility] [phone] [facility] 04-13-2023 Note Spoke to [facility] sup port she said he is eligible for the bridge program so she will send it over to the pharmacy so he can get started. They should receive a call from [facility] by the end of the week. Left a detailed message with this information and to expect a call. Also want to know what she heard from [employer]. July Rankin PharmD, JIGARCP 05/31/23 10:04 AM [facility] [phone] [facility] 04-13-2023 Note I called today and s eron with the patient. He did not know if they had received the application or if it was sent back--I asked him to please have his call us when she is available to let us know. Autumn Ayala PharmD, JIGARCP, [facility] 05/18/23 10:15 AM [facility] [phone] [facility] 04-13-2023 Note Spoke to pts . [facility] support is supposed to send the medication out today. Recommend she calls them 1 week before he will run out for refills. July Rankin PharmD, BCACP 06/23/23 8:54 AM [facility] [phone] [facility] 04-13-2023 Note Pts never sorto dAbran Anthony LM for her this morning to see where we are at with things. July Rankin PharmD, BCACP 05/30/23 9:18 AM [facility] [phone] [facility] 04-13-2023 Note Faxed application to [facility] program. July Rankin PharmD, BCACP 05/19/23 12:57 PM [facility] [phone] [facility] 04-12-2023 Note aPATIENT: Eunice noble DATE OF : 1955 DATE OF VISIT: 04/12/23 Urology Clinic H&P PHYLLIS ACOSTA M.D., F.A.C.S. 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 Eunice Marte is a 67 y.o. -Surinamese male with history of HTN, HLD, Diabetes Mellitus Type 2, CKD III, Stroke (04/2015 resulted in right sided weakness since has improved), CAD, [place] in 2021 on ASA 81mg s/p implantable loop recorder, LE DVT (not on current anticoagulation), Asthma, ALLISON on CPAP, GERD, BPH, ED s/p placement of IPP in 2012, and unfavorable intermediate risk prostate cancer. He presents for follow-up. Mr. Marte was noted to have an elevated PSA 11.09 ng/mL on 01/26/2022 in the setting of reportedly prior negative TRUS prostate biopsy on 08/2020. An outside MRI prostate on 05/26/2022 revealed a prostate volume 48 mL, a 0.8 x 0.8 cm lesion was identified in anterior aspect of left PZ at mid gland with MRI characteristics of PI-RADS 4. No evidence of EPE, SVI, adenopathy. Hypointense lesion involving right ischial tuberosity noted possibly suspicious for metastatic disease. A UroNav MRI/ultrasound fusion prostate biopsy via transperineal approach performed by local urologist Milvia Daniel MD on 07/06/2022 at [facility] for a total of 24 cores (12 systematic cores x2 and 4 cores obtained from MARÍA ELENA #1). Pathology per [facility] review revealed acinar adenocarcinoma of the prostate, [place] 3+4= 7; GG 2 involving 2/13 in MARÍA ELENA#1 up to 6mm or 50% of tissue (since MARÍA ELENA#1 sampled more than once), and in (Left Anterior Medical) up to 10 mm or 91% of tissue (since each systematic biopsy site sampled twice). PNI present in both cores without cribriform histology. A CT abdomen and pelvis with IV contrast on 08/06/2022 revealed circumferential bladder wall thickening, sigmoid diverticulosis, heterogenous bone marrow activity within the right ilium asymmetric compared to left suggestive of Paget's disease but no significant enlargement of the ilium. Subsequently, an outside PSMA PET/CT scan obtained on 09/20/2022 revealed subtle focal PSMA activity in anterior aspect of left prostate consistent with known neoplasm. No PSMA evidence of local or distant metastatic disease. 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 He was counseled for treatment options of surgery versus radiation by his urologist and was referred for consideration of Retzius sparing prostatectomy. At this visit, Mr. Marte presents for follow-up using a cane accompanied by his . It appears patient's memory has been affected by his a prior stroke, waxing and waning. He denies gross hematuria, dysuria, however, has moderately significant LUTS, nocturia x2-3, AUA-SI 16/35, QoL 5 (unhappy) despite being on Myrbetriq 50 mg daily for urinary urgency/urge incontinence since his stroke. THANH 0/25 (has IPP in place, not currently sexually active since stroke in 2015). He can walks using a cane a couple of blocks before he gets tired. I had a long discussion with Mr. Marte and his regarding his a clinical presentation, symptoms, exam finding including BHUPINDER 12/07/2022 45 g prostate, with left side induration, no discrete nodule, cT2a. I reviewed and discussed outside sap bw consultant note, outside laboratory tests, outside imaging including MRI prostate and PSMA, pathology result of prostate biopsy, and decipher score. Mr. 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 His ECOG performance status 2. Mr. Marte had an ECHO 02/17/2023 revealed normal global left ventricular systolic function, EF 55 % visually, no regional wall motion abnormality. Lesican Stress Myocardial Perfusion Test 02/17/2023 revealed negative perfusion stress test for ischemia, abnormal myocardial perfusion with soft tissue artifact, Small moderate severity fixed inferolateral basal defect consisten with scar, global left ventricle systolic function is mildly decreased with EF 47%. He was cleared by cardiology, Dr. Messer on 03/17/2023 for radical prostatectomy as low to intermediate risk. I counseled patient extensively for treatment options and I made my recommendations and assessment and plan. PSA levels PSA 8.1 04/12/2023, testosterone 205, pre-ADT PSA 11.09 01/26/2022 PSA 6.8 10/03/2021, %fPSA 5.7 PSA 7.2 04/06/2021, % 5.3 %fSPA Oncology History No history exists. Past Medical History He has a past medical history of Asthma, BPH (benign prostatic hyperplasia), (more content not included)... [facility] 03-17-2023 Note [place] [facility] Asher Marte is a 67 y.o. year old male patient being seen for Hypertension and Pre-op Exam Patient Active Problem List Diagnosis Prostate cancer (CMS/HCC) Cerebrovascular accident (CVA) ([facility]) History of diabetes mellitus History of DVT (deep vein thrombosis) History of hypertension History of ischemic left MCA stroke Hyperlipidemia Hypertension Partial seizure ([facility]) Type 2 diabetes mellitus without complication ([facility]) Osteoarthritis of knee Family History Problem Relation Name Age of Onset Heart disease Mother 58 Heart disease Maternal Grandmother heart trouble Heart disease Maternal Grandfather heart trouble Social History Tobacco Use Smoking status: Former Packs/day: 0.25 Years: 20.00 Pack years: 5.00 Types: Cigarettes Quit date: 2014 Years since quittin.5 Passive exposure: Past Smokeless tobacco: Never Substance Use Topics Alcohol use: Yes Alcohol/week: 3.0 standard drinks of alcohol Types: 3 Cans of beer per week Comment: occasional Drug use: Not Currently Types: Marijuana HPI Eunice is seen in follow up. He is a 67-year-old man who was referred from Dr. Acosta's office for cardiac evaluation prior to robotic surgery of the prostate. I previously saw him on 01/28/2023 and ordered an echocardiogram and a stress test. At that visit he was complaining of symptoms of chest pain happening on and off as well as shortness of breath on exertion NYHA class II-III. He has prior history of diabetes, hyperlipidemia, hypertension. He had a stroke in 2019 and was investigated by transesophageal echocardiogram that showed an ejection fraction of 40% with no significant valvular dysfunction. He underwent a loop recorder placement that has not shown any significant arrhythmias as far as I can tell. His blood pressure has been elevated during his prior visit, when he presented for the echocardiogram and a stress test and at last visit of 02/23/2023. I have been working on optimizing medical therapy for his hypertension, systolic heart failure and dyslipidemia. Today he reports that he has been doing well and he denies symptoms of chest pain and shortness of breath. Review of Systems Constitutional: Negative. HENT: Negative. Eyes: Negative. Cardiovascular: Negative. Respiratory: Negative. Endocrine: Negative. Hematologic/Lymphatic: Negative. Skin: Negative. Musculoskeletal: Negative. Gastrointestinal: Negative. Genitourinary: Negative. Neurological: Negative. Psychiatric/Behavioral: Negative. Allergic/Immunologic: Negative. Objective Visit Vitals BP 147/88 (BP Location: Left arm, Patient Position: Standing, BP Cuff Size: Adult long) Pulse 83 Ht 1.829 m (6') Wt 100 kg (221 lb) BMI 29.97 kg/m??? Smoking Status Former BSA 2.25 m??? Physical Exam Constitutional: Appearance: He is well-developed. He is obese. He is not ill-appearing. HENT: Head: Normocephalic and atraumatic. Nose: Nose normal. Eyes: General: No scleral icterus. Pupils: Pupils are equal, round, and reactive to light. Neck: Thyroid: No thyromegaly. Vascular: No JVD. Cardiovascular: Rate and Rhythm: Normal rate and regular rhythm. Pulses: Radial pulses are 2+ on the right side and 2+ on the left side. Heart sounds: Normal heart sounds. No murmur heard. No friction rub. No gallop. Pulmonary: Effort: Pulmonary effort is normal. No respiratory distress. Breath sounds: Normal breath sounds. No wheezing or rales. Chest: Chest wall: No tenderness. Abdominal: General: Bowel sounds are normal. There is no distension. Palpations: Abdomen is soft. Tenderness: There is no abdominal tenderness. Musculoskeletal: General: No swelling. Cervical back: Neck supple. Comments: Uses a can to assist with ambulation Skin: General: Skin is warm and dry. Neurological: General: No focal deficit present. Mental Status: He is alert and oriented to person, place, and time. Psychiatric: Mood and Affect: Mood normal. Behavior: Behavior is cooperative. Judgment: Judgment normal. Allergies Allergies Allergen Reactions Penicillins Hives Other reaction(s): Other (See Comments) Labetalol Medications Current Outpatient Medications: albuterol 90 mcg/actuation inhaler, Inhale 2 puffs as needed by inhalation route for 25 days., Disp: , Rfl: amLODIPine (Norvasc) 10 mg tablet, Take 10 mg by mouth in the morning., Disp: , Rfl: aspirin 81 mg EC tablet, Take 1 tablet by mouth in the morning., Disp: , Rfl: blood sugar diagnostic strip, Check bs once E11.40daily, Disp: , Rfl: cholecalciferol (Vitamin D-3) 50 MCG (1999) tablet, Take by mouth in the morning., Disp: , Rfl: ezetimibe (Zetia) 10 mg tablet, Take 1 tablet (10 mg) by mouth in the morning., Disp: 90 tablet, Rfl: 3 glipiZIDE (Glucotrol) 10 mg tablet, Take 10 mg by mouth in the morning and at be (more content not included)... [facility] 02-23-2023 Note [place] [facility] Subjective Eunice Marte is a 67 y.o. year old male patient being seen for Follow-up (Echo and stress test. Pt is here for prostate surgery clearance) Patient Active Problem List Diagnosis Prostate cancer (CMS/HCC) Cerebrovascular accident (CVA) ([facility]) History of diabetes mellitus History of DVT (deep vein thrombosis) History of hypertension History of ischemic left MCA stroke Hyperlipidemia Hypertension Partial seizure (CMS/HCC) Type 2 diabetes mellitus without complication (CMS/HCC) Osteoarthritis of knee Family History Problem Relation Name Age of Onset Heart disease Mother 58 Heart disease Maternal Grandmother heart trouble Heart disease Maternal Grandfather heart trouble Social History Tobacco Use Smoking status: Former Packs/day: 0.25 Years: 20.00 Pack years: 5.00 Types: Cigarettes Quit date: 2014 Years since quittin.5 Smokeless tobacco: Never Substance Use Topics Alcohol use: Yes Alcohol/week: 3.0 standard drinks of alcohol Types: 3 Cans of beer per week Comment: occasional Drug use: Yes Types: Marijuana Comment: occasional HPI This is a 67-year-old man who is referred from Dr. Acosta's office for cardiac evaluation prior to robotic surgery of the prostate. I last saw him on 01/28/2023 and ordered an echocardiogram and a stress test. At that visit he was complaining of symptoms of chest pain happening on and off as well as shortness of breath on exertion NYHA class II-III. He has prior history of diabetes, hyperlipidemia, hypertension. He had a stroke in 2019 and was investigated by transesophageal echocardiogram that showed an ejection fraction of 40% with no significant valvular dysfunction. He underwent a loop recorder placement that has not shown any significant arrhythmias as far as I can tell. His blood pressure has been elevated during last visit and when he presented for the echocardiogram and a stress test. His blood pressure is elevated today. Today he reports that he has been doing well and he denies symptoms of chest pain and shortness of breath. Review of Systems Cardiovascular: Negative for chest pain, dyspnea on exertion, irregular heartbeat, leg swelling, orthopnea, palpitations and syncope. Respiratory: Negative for cough and shortness of breath. Musculoskeletal: Negative for arthritis, falls and neck pain. Gastrointestinal: Negative for diarrhea and dysphagia. Neurological: Negative for light-headedness and loss of balance. Objective Visit Vitals BP (!) 183/93 (BP Location: Right arm, Patient Position: Standing) Pulse 86 Ht 1.829 m (6') Wt 101 kg (222 lb) BMI 30.11 kg/m??? Smoking Status Former BSA 2.27 m??? Physical Exam Constitutional: Appearance: He is well-developed. He is obese. He is not ill-appearing. HENT: Head: Normocephalic and atraumatic. Nose: Nose normal. Eyes: General: No scleral icterus. Pupils: Pupils are equal, round, and reactive to light. Neck: Thyroid: No thyromegaly. Vascular: No JVD. Cardiovascular: Rate and Rhythm: Normal rate and regular rhythm. Pulses: Radial pulses are 2+ on the right side and 2+ on the left side. Heart sounds: Normal heart sounds. No murmur heard. No friction rub. No gallop. Pulmonary: Effort: Pulmonary effort is normal. No respiratory distress. Breath sounds: Normal breath sounds. No wheezing or rales. Chest: Chest wall: No tenderness. Abdominal: General: Bowel sounds are normal. There is no distension. Palpations: Abdomen is soft. Tenderness: There is no abdominal tenderness. Musculoskeletal: General: No swelling. Cervical back: Neck supple. Right lower le+ Pitting Edema present. Left lower le+ Pitting Edema present. Comments: Uses a cane to assist with ambulation Skin: General: Skin is warm and dry. Neurological: General: No focal deficit present. Mental Status: He is alert and oriented to person, place, and time. Psychiatric: Mood and Affect: Mood normal. Behavior: Behavior is cooperative. Judgment: Judgment normal. Allergies Allergies Allergen Reactions Penicillins Hives Other reaction(s): Other (See Comments) Labetalol Medications Current Outpatient Medications: albuterol 90 mcg/actuation inhaler, Inhale 2 puffs as needed by inhalation route for 25 days., Disp: , Rfl: amLODIPine (Norvasc) 10 mg tablet, Take 10 mg by mouth in the morning., Disp: , Rfl: aspirin 81 mg EC tablet, Take 1 tablet by mouth in the morning., Disp: , Rfl: cholecalciferol (Vitamin D-3) 50 MCG (2000 UT) tablet, Take by mouth in the morning., Disp: , Rfl: glipiZIDE (Glucotrol) 10 mg tablet, Take 10 mg by mouth in the morning and at bedtime., Disp: , Rfl: HumaLOG Mix 75-25 KwikPen 100 unit/mL (75-25) injection, , Disp: , Rfl: metFORMIN XR (Glucophage-XR) 500 mg 24 hr tablet, daily with evening meal., Disp: , Rfl: montelukast (Singulair) 1 (more content not included)... [facility] 02-02-2023 Hospital Discharge instructions Patient Education 02/02/2023 10:08:49 Prostate Cancer Prostate Cancer The prostate is a small gland that produces fluid that makes up semen (seminal fluid). It is located below the bladder in men, in front of the rectum. Prostate cancer is the abnormal growth of cells in the prostate gland. What are the causes? The exact cause of this condition is not known. What increases the risk? You are more likely to develop this condition if: You are 65 years of age or older. You have a family history of prostate cancer. You have a family history of breast and ovarian cancer. You have genes that are passed from parent to child (inherited), such as BRCA1 and BRCA2. You have Montez syndrome. men and men of descent are diagnosed with prostate cancer at higher rates than other men. The reasons for this are not well understood and are likely due to a combination of genetic and environmental factors. What are the signs or symptoms? Symptoms of this condition include: Problems with urination. This may include: ?A weak or interrupted flow of urine. ?Trouble starting or stopping urination. ?Trouble emptying the bladder all the way. ?The need to urinate more often, especially at night. Blood in urine or semen. Persistent pain or discomfort in the lower back, lower abdomen, or hips. Trouble getting an erection. Weakness or numbness in the legs or feet. How is this diagnosed? This condition can be diagnosed with: A digital rectal exam. For this exam, a health care provider inserts a gloved finger into the rectum to feel the prostate gland. A blood test called a prostate-specific antigen (PSA) test. A procedure in which a sample of tissue is taken from the prostate and checked under a microscope (prostate biopsy). An imaging test called transrectal ultrasonography. Once the condition is diagnosed, tests will be done to determine how far the cancer has spread. This is called staging the cancer. Staging may involve imaging tests, such as a bone scan, CT scan, PET scan, or MRI. Stages of prostate cancer The stages of prostate cancer are as follows: Stage 1 (I). At this stage, the cancer is found in the prostate only. The cancer is not visible on imaging tests, and it is usually found by accident, such as during prostate surgery. Stage 2 (II). At this stage, the cancer is more advanced than it is in stage 1, but the cancer has not spread outside the prostate. Stage 3 (III). At this stage, the cancer has spread beyond the outer layer of the prostate to nearby tissues. The cancer may be found in the seminal vesicles, which are near the bladder and the prostate. Stage 4 (IV). At this stage, the cancer has spread to other parts of the body, such as the lymph nodes, bones, bladder, rectum, liver, or lungs. Prostate cancer grading Prostate cancer is also graded according to how the cancer cells look under a microscope. This is called the [place]iskil[place] score and the total score can range from 6 10, indicating how likely it is that the cancer will spread (metastasize) to other parts of the body. The higher the score, the greater the likelihood that the cancer will spread. [place]il[place] 6 or lower: This indicates that the cancer cells look similar to normal prostate cells (well differentiated). [place] 7: This indicates that the cancer cells look somewhat similar to normal prostate cells (moderately differentiated). Gilbert 8, 9, or 10: This indicates that the cancer cells look very different than normal prostate cells (poorly differentiated). How is this treated? Treatment for this condition depends on several factors, including the stage of the cancer, your age, personal preferences, and your overall health. Talk with your health care provider about treatment options that are recommended for you. Common treatments include: Observation for early stage prostate cancer (active surveillance). This involves having exams, blood tests, and in some cases, more biopsies. For some men, this is the only treatment needed. Surgery. Types of surgeries include: ?Open surgery (radical prostatectomy). In this surgery, a larger incision is made to remove the prostate. ?A laparoscopic radical prostatectomy. This is a surgery to remove the prostate and lymph nodes through several small incisions. It is often referred to as a minimally invasive surgery. ?A robotic radical prostatectomy. This is laparoscopic surgery to remove the prostate and lymph nodes with the help of robotic arms that are controlled by the surgeon. ?Cryoablation. This is surgery to freeze and destroy cancer cells. Radiation treatment. Types of radiation treatment include: ?External beam radiation. This type aims beams of radiation from outside the body at the prostate to destroy cancerous cells. ?Brachytherapy. This type uses radioactive needles, seeds, wires, or tubes that are implanted into the prostate gland. Like external beam radiation, brachytherapy destroys cancerous cells. An advantage is that this type of radiation limits the damage to surrounding tissue and has fewer side effects. Chemotherapy. This treatment kills cancer cells or stops them from multiplying. It kills both cancer cells and normal cells. Targeted therapy. This treatment uses medicines to kill cancer cells without damaging normal cells. Hormone treatment. This treatment involves taking medicines that act on testosterone, one of the male hormones, by: ?Stopping your body from producing testosterone. ?Blocking testosterone from reaching cancer cells. Follow these instructions at home: Lifestyle Do not use any products that contain nicotine or tobacco. These products include cigarettes, chewing tobacco, and vaping devices, such as e-cigarettes. If you need help quitting, ask your health care provider. Eat a healthy diet. To do this: ?Eat foods that are high in fiber. These include beans, whole grains, and fresh fruits and vegetables. ?Limit foods that are high in fat and sugar. These include fried or sweet foods. Treatment for prostate cancer may affect sexual function. If you have a partner, continue to have intimate moments. This may include touching, holding, hugging, and caressing your partner. Get plenty of sleep. Consider joining a support group for men who have prostate cancer. Meeting with a support group may help you learn to manage the stress of having cancer. General instructions Take [id number]-xlauvah and prescription medicines only as told by your health care provider. If you have to go to the hospital, notify your cancer specialist (oncologist). Keep all follow-up visits. This is important. Where to find more information [place] [employer]: www.cancer.org [place] [employer] On[employer]: www.cancer.net National Cancer [place]: www.cancer.gov Contact a health care provider if: You have new or increasing trouble urinating. You have new or increasing blood in your urine. You have new or increasing pain in your hips, back, or chest. Get help right away if: You have weakness or numbness in your legs. You cannot control urination or your bowel movements (incontinence). You have chills or a fever. Summary The prostate is a small gland that is involved in the production of semen. It is located below a man's bladder, in front of the rectum. Prostate cancer is the abnormal growth of cells in the prostate gland. Treatment for this condition depends on the stage of the cancer, your age, personal preferences, and your overall health. Talk with your health care provider about treatment options that are recommended for you. Consider joining a support group for men who have prostate cancer. Meeting with a support group may help you learn to manage the stress of having cancer. This information is not intended to replace advice given to you by your health care provider. Make sure you discuss any questions you have with your health care provider. Document Revised: 11/04/2021 Document Reviewed: 11/04/2021 [employer] Patient Education 2022 [employer]. Follow Up Care 11/03/2022 08:38:11 With:Dewey COTTO, ARIAN Alegria, URO Address: When: Unknown [facility] 01-28-2023 Note [facility] Asher Marte is a 67 y.o. year old male patient being seen for Hypertension Patient Active Problem List Diagnosis Prostate cancer (CMS/HCC) Cerebrovascular accident (CVA) (CMS/HCC) History of diabetes mellitus History of DVT (deep vein thrombosis) History of hypertension History of ischemic left MCA stroke Hyperlipidemia Hypertension Partial seizure (CMS/HCC) Type 2 diabetes mellitus without complication (CMS/[facility]) Osteoarthritis of knee Family History Problem Relation Name Age of Onset Heart disease Mother 58 Heart disease Maternal Grandmother heart trouble Heart disease Maternal Grandfather heart trouble Social History Tobacco Use Smoking status: Former Packs/day: 0.25 Years: 20.00 Pack years: 5.00 Types: Cigarettes Quit date: 2014 Years since quittin.4 Smokeless tobacco: Never Substance Use Topics Alcohol use: Yes Alcohol/week: 3.0 standard drinks Types: 3 Cans of beer per week Comment: occasional Drug use: Yes Types: Marijuana Comment: occasional This is a 67-year-old man who is referred from Dr. Acosta's office for cardiac evaluation prior to robotic surgery of the prostate. He has prior history of diabetes, hyperlipidemia, hypertension. He had a stroke in 2019 and was investigated by transesophageal echocardiogram that showed an ejection fraction of 40% with no significant valvular dysfunction. He underwent a loop recorder placement that has not shown any significant arrhythmias as far as I can tell. Currently he reports episodes of chest pain that happen on and off. He has shortness of breath on exertion, NYHA class II-III, no significant lower extremity edema he does not feel palpitations. Hypertension Pertinent negatives include no chest pain, orthopnea, palpitations or PND. Review of Systems Cardiovascular: Positive for dyspnea on exertion. Negative for chest pain, claudication, cyanosis, irregular heartbeat, leg swelling, near-syncope, orthopnea, palpitations, paroxysmal nocturnal dyspnea and syncope. Objective Visit Vitals BP 174/87 (BP Location: Left arm, Patient Position: Standing, BP Cuff Size: Adult long) Pulse 103 Ht 1.829 m (6') Wt 103 kg (227 lb) BMI 30.79 kg/m??? Smoking Status Former BSA 2.29 m??? Physical Exam Constitutional: Appearance: He is well-developed. He is not ill-appearing. HENT: Head: Normocephalic and atraumatic. Nose: Nose normal. Eyes: General: No scleral icterus. Pupils: Pupils are equal, round, and reactive to light. Neck: Thyroid: No thyromegaly. Vascular: No JVD. Cardiovascular: Rate and Rhythm: Normal rate and regular rhythm. Pulses: Radial pulses are 2+ on the right side and 2+ on the left side. Heart sounds: Normal heart sounds. No murmur heard. No friction rub. No gallop. Pulmonary: Effort: Pulmonary effort is normal. No respiratory distress. Breath sounds: Normal breath sounds. No wheezing or rales. Chest: Chest wall: No tenderness. Abdominal: General: Bowel sounds are normal. There is no distension. Palpations: Abdomen is soft. Tenderness: There is no abdominal tenderness. Musculoskeletal: General: No swelling. Cervical back: Neck supple. Comments: Uses a cane to assist with ambulation. Skin: General: Skin is warm and dry. Neurological: General: No focal deficit present. Mental Status: He is alert and oriented to person, place, and time. Psychiatric: Mood and Affect: Mood normal. Behavior: Behavior is cooperative. Judgment: Judgment normal. Allergies Allergies Allergen Reactions Penicillins Hives Other reaction(s): Other (See Comments) Labetalol Medications Current Outpatient Medications: albuterol 90 mcg/actuation inhaler, Inhale 2 puffs as needed by inhalation route for 25 days., Disp: , Rfl: amLODIPine (Norvasc) 10 mg tablet, Take 10 mg by mouth in the morning., Disp: , Rfl: aspirin 81 mg EC tablet, Take 1 tablet by mouth in the morning., Disp: , Rfl: atorvastatin (Lipitor) 80 mg tablet, Take 1 tablet twice a day by oral route for 87 days., Disp: , Rfl: blood sugar diagnostic strip, Check bs once E11.40daily, Disp: , Rfl: cholecalciferol (Vitamin D-3) 50 MCG (2000 UT) tablet, Take by mouth in the morning., Disp: , Rfl: glipiZIDE (Glucotrol) 10 mg tablet, Take 10 mg by mouth in the morning and at bedtime., Disp: , Rfl: HumaLOG Mix 75-25 KwikPen 100 unit/mL (75-25) injection, , Disp: , Rfl: lisinopriL-hydrochlorothiazide 20-12.5 mg tablet, Take 1 tablet twice a day by oral route for 90 days., Disp: , Rfl: metFORMIN XR (Glucophage-XR) 500 mg 24 hr tablet, daily with evening meal., Disp: , Rfl: montelukast (Singulair) 10 mg tablet, once daily as directed., Disp: , Rfl: Myrbetriq 50 mg tablet extended release 24 hr, Take 1 tablet by mouth in the morning., Disp: , Rfl: pen needle, diabetic 32 gauge x /32 needle, Inject med subq once d (more content not included)... [facility] 12-07-2022 Note aPATIENT: Eunice noble DATE OF : 1955 DATE OF VISIT: 12/16/22 Urology Clinic H&P PHYLLIS ACOSTA M.D., F.A.C.S. 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 Eunice Marte is a 67 y.o. -[place] male with history of HTN, HLD, Diabetes Mellitus Type 2, CKD III, Stroke (04/2015 resulted in right sided weakness since has improved), CAD, [place] in 2021 on ASA 81mg s/p implantable loop recorder, LE DVT (not on current anticoagulation), Asthma, ALLISON on CPAP, GERD, BPH, ED s/p placement of IPP in 2012, who presents to discuss management of unfavorable intermediate risk prostate cancer. Mr. Marte was noted to have an elevated PSA 11.09 ng/mL on 01/26/2022 in the setting of reportedly prior negative TRUS prostate biopsy on 08/2020. An outside MRI prostate on 05/26/2022 revealed a prostate volume 48 mL, a 0.8 x 0.8 cm lesion was identified in anterior aspect of left PZ at mid gland with MRI characteristics of PI-RADS 4. No evidence of EPE, SVI, adenopathy. Hypointense lesion involving right ischial tuberosity noted possibly suspicious for metastatic disease. A UroNav MRI/ultrasound fusion prostate biopsy via transperineal approach performed by local urologist Milvia Daniel MD on 07/06/2022 at [facility] for a total of 24 cores (12 systematic cores x2 and 4 cores obtained from MARÍA ELENA #1). Outside pathology (yet to be confirmed at [facility]) revealed acinar adenocarcinoma of the prostate, Gilbert 3+4= 7; GG 2 involving 2/13 in MARÍA ELENA#1 up to10mm or 25% of tissue (since MARÍA ELENA#1 sampled more than once), and in (Left Anterior Medical) up to 17 mm or 81% of tissue (since each systematic biopsy site sampled twice). No mentioning if PNI present or absent but cribriform histology not present. A CT abdomen and pelvis with IV contrast on 08/06/2022 revealed circumferential bladder wall thickening, sigmoid diverticulosis, heterogenous bone marrow activity within the right ilium asymmetric compared to left suggestive of Paget's disease but no significant enlargement of the ilium. Subsequently, an outside PSMA PET/CT scan obtained on 09/20/2022 revealed subtle focal PSMA activity in anterior aspect of left prostate consistent with known neoplasm. No PSMA evidence of local or distant metastatic disease. 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 He was counseled for treatment options of surgery versus radiation by his urologist and was referred for consideration of Retzius sparing prostatectomy. At this visit, Mr. Marte presents for consultation using a cane accompanied by his . It appears patient's memory has been affected by his a prior stroke as most of the questions were answered by his . He denies gross hematuria, dysuria, however, has moderately significant LUTS, nocturia x4, AUA-SI 16/35, QoL 5 (unhappy) despite being on Myrbetriq 50 mg daily urinary urgency/urge incontinence since his stroke. He has been prescribed oxybutynin 5 mg ER/day for increased urinary frequency and morning due to HCTZ but appears he is not taking it. THANH 0/25 (has IPP in place, not currently sexually active since stroke in 2014). He can walks using a cane a couple of blocks before he gets tired. I had a long discussion with Mr. Marte and his regarding his a clinical presentation, symptoms, exam finding including BHUPINDER/ 45 g prostate, with left side induration, no discrete nodule, cT2a. I reviewed and discussed outside sap bw consultant note, outside laboratory test, outside imaging including MRI prostate and PSMA, pathology result of prostate biopsy, and decipher score. Mr. 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 His ECOG performance status 2. I counseled patient extensively for treatment options and I made my recommendations and assessment and plan. PSA levels PSA 11.09 01/26/2022 PSA 6.8 10/03/2021, %fPSA 5.7 PSA 7.2 04/06/2021, % 5.3 %fSPA Oncology History No history exists. Past Medical History He has a past medical history of Asthma, BPH (benign prostatic hyperplasia), CAD (coronary artery disease), CKD (chronic kidney disease), stage III (CMS/HCC), Depression, DM (diabetes mellitus) (CMS/HCC) (2007), Erectile dysfunction, GERD (gastroesophageal reflux disease), H/O deep venous thrombosis, HLD (hyperlipidemia), HTN (hypertension), Myocardial infarction (CMS/HCC) (2021), ALLISON on CPAP, Prostate cancer (CMS/HCC), Status post placement of implantable loop recorder, and Stroke (more content not included)... [facility] 11-30-2022 Note Urology Clinic H&P Dr. Jose Ramos MD Patient: Eunice Marte Date of : 1955 CHIEF COMPLAINT: Prostate cancer HISTORY OF PRESENT ILLNESS: The patient is a 67 y.o. male who presents with prostate cancer, considering surgical options including radical prostatectomy and HIFU. PCP: Dr. Ira Harper Previous Urologist: Dr. Milvia Palomo 1. Prostate cancer: Eunice Marte was seen in consultation for prostate HIFU treatment. Details: Diagnosed when: June, Trend and history of PSA: 01/26/22: 11.09 10/03/21: 6.8 04/06/21: 7.2 BHUPINDER findings: None MRI findings: PIRADS-4 lesion in peripheral zone, midgland Date: 05/26/22 Site index lesion PiRADs-4 Secondary lesions: None Extraprostatic extension: None Prostate volume: 48ml Biopsy details: MRI fusion number of cores obtained: 11 TRUS: significant calcifications near apex, left PZ hypoechoic lesion Pathology details: Rt sided: Benign Left Sided: MARÍA ELENA left PZ midgland: 3+4=7, 25% of tissue Left anterior medial: 3+4=7 TARGET lesion biopsy: Other staging work up: PSMA PET Scan: Negative Clinical stage: cT1c Complications from biopsy: None 2. Sexual function: Not sexually active, has prior IPP but does not work 3. Urinary symptoms: -h/o BPH on alpha blockers - No on 5ARI - No IPSS / QOL: Good QoL PVR: needs to be measured Urinary control: No incontinence: Yes, urgency previous urologic surgery: IPP placement Ejaculation: NA 4. Hormonal status - ADT No Previous anorectal surgical history: No future fertility plans: No Radiation history: No ECOG status: 1 Smoking history: prior smoker, quit many years ago Occupation: Used to work at a [employer] Diabetes: Yes, uses insulin CAD: No Crohn's disease: No Ulcerative Colitis: No Hemorrhoid surgery: No Previous abdominal surgeries: L1-L5 fusion Patient's old records, notes and chart reviewed and summarized above. Past Medical History: No past medical history on file. Afib, Diabetes Mellitus Type 2, Past Surgical History: No past surgical history on file. Previous surgery: IPP Placement Medications: Current Outpatient Medications on File Prior to Visit Medication Sig Dispense Refill aspirin 81 mg EC tablet Take 1 tablet by mouth in the morning. atorvastatin (Lipitor) 80 mg tablet Take 1 tablet twice a day by oral route for 87 days. blood sugar diagnostic strip Check bs once E11.40daily pen needle, diabetic 32 gauge x 5/32 needle Inject med subq once daily E11.40 albuterol (ProAir HFA) 90 mcg/actuation inhaler Inhale 2 puffs as needed by inhalation route for 25 days. amLODIPine (Norvasc) 10 mg tablet Take 10 mg by mouth in the morning. cholecalciferol (Vitamin D-3) 50 MCG (2000 UT) tablet Take by mouth in the morning. glipiZIDE (Glucotrol) 10 mg tablet Take 10 mg by mouth in the morning and at bedtime. HumaLOG Mix 75-25 KwikPen 100 unit/mL (75-25) injection lisinopriL-hydrochlorothiazide 20-12.5 mg tablet Take 1 tablet twice a day by oral route for 90 days. metFORMIN XR (Glucophage-XR) 500 mg 24 hr tablet montelukast (Singulair) 10 mg tablet Myrbetriq 50 mg tablet extended release 24 hr Take 1 tablet by mouth in the morning. pioglitazone (Actos) 30 mg tablet No current facility-administered medications on file prior to visit. Allergies: Penicillins and Labetalol Social History: Social History Socioeconomic History Marital status: Spouse name: Not on file Number of children: Not on file Years of education: Not on file Highest education level: Not on file Occupational History Not on file Tobacco Use Smoking status: Not on file Smokeless tobacco: Not on file Substance and Sexual Activity Alcohol use: Not on file Drug use: Not on file Sexual activity: Not on file Other Topics Concern Not on file Social History Narrative Not on file Social Determinants of Health Financial Resource Strain: Not on file Food Insecurity: Not on file Transportation Needs: Not on file Physical Activity: Not on file Stress: Not on file Social Connections: Not on file Intimate Partner Violence: Not on file Housing Stability: Not on file Family History: No family history on file. Previous Urologic Family history: none REVIEW OF SYSTEMS: General ROS: negative, no fatigue Psychological ROS: no depression, no suicidal thoughts ENT ROS: no bleeding, no ear tingling Hematological and Lymphatic ROS: no bruising, no swelling Endocrine ROS: negative Respiratory ROS: no wheezing, no shortness of breath Cardiovascular ROS: no chest pain Gastrointestinal ROS: no constipation, no diarrhea Genito-Urinary ROS: see HPI Musculoskeletal ROS: no muscle pain Physical Exam: This a 67 y.o. patient There were no vitals filed for this visit. Constitutional: Patient in no acute distress; Neuro: alert and oriented to person place and time. Psych: Mood and affect (more content not included)... [facility] 11-03-2022 Hospital Discharge instructions Patient Education 11/03/2022 08:22:33 Prostate Cancer Prostate Cancer The prostate is a walnut-sized gland that is involved in the production of semen. It is located below a man's bladder, in front of the rectum. Prostate cancer is the abnormal growth of cells in the prostate gland. What are the causes? The exact cause of this condition is not known. What increases the risk? This condition is more likely to develop in men who: Are older than age 65. Are -[place]e. Are obese. Have a family history of prostate cancer. Have a family history of breast cancer. What are the signs or symptoms? Symptoms of this condition include: A need to urinate often. Weak or interrupted flow of urine. Trouble starting or stopping urination. Inability to urinate. Pain or burning during urination. Painful ejaculation. Blood in urine or semen. Persistent pain or discomfort in the lower back, lower abdomen, hips, or upper thighs. Trouble getting an erection. Trouble emptying the bladder all the way. How is this diagnosed? This condition can be diagnosed with: A digital rectal exam. For this exam, a health care provider inserts a gloved finger into the rectum to feel the prostate gland. A blood test called a prostate-specific antigen (PSA) test. An imaging test called transrectal ultrasonography. A procedure in which a sample of tissue is taken from the prostate and examined under a microscope (prostate biopsy). Once the condition is diagnosed, tests will be done to determine how far the cancer has spread. This is called staging the cancer. Staging may involve imaging tests, such as: A bone scan. A CT scan. A PET scan. An MRI. The stages of prostate cancer are as follows: Stage I. At this stage, the cancer is found in the prostate only. The cancer is not visible on imaging tests and it is usually found by accident, such as during a prostate surgery. Stage II. At this stage, the cancer is more advanced than it is in stage I, but the cancer has not spread outside the prostate. Stage III. At this stage, the cancer has spread beyond the outer layer of the prostate to nearby tissues. The cancer may be found in the seminal vesicles, which are near the bladder and the prostate. Stage IV. At this stage, the cancer has spread other parts of the body, such as the lymph nodes, bones, bladder, rectum, liver, or lungs. How is this treated? Treatment for this condition depends on several factors, including the stage of the cancer, your age, personal preferences, and your overall health. Talk with your health care provider about treatment options that are recommended for you. Common treatments include: Observation for early stage prostate cancer (active surveillance). This involves having exams, blood tests, and in some cases, more biopsies. For some men, this is the only treatment needed. Surgery. Types of surgeries include: ?Open surgery. In this surgery, a larger incision is made to remove the prostate. ?A laparoscopic prostatectomy. This is a surgery to remove the prostate and lymph nodes through several, small incisions. It is often referred to as a minimally invasive surgery. ?A robotic prostatectomy. This is a surgery to remove the prostate and lymph nodes with the help of a robotic arm that is controlled by a computer. ?Orchiectomy. This is a surgery to remove the testicles. ?Cryosurgery. This is a surgery to freeze and destroy cancer cells. Radiation treatment. Types of radiation treatment include: ?External beam radiation. This type aims beams of radiation from outside the body at the prostate to destroy cancerous cells. ?Brachytherapy. This type uses radioactive needles, seeds, wires, or tubes that are implanted into the prostate gland. Like external beam radiation, brachytherapy destroys cancerous cells. An advantage is that this type of radiation limits the damage to surrounding tissue and has fewer side effects. High-intensity, focused ultrasonography. This treatment destroys cancer cells by delivering high-energy ultrasound waves to the cancerous cells. Chemotherapy medicines. This treatment kills cancer cells or stops them from multiplying. Hormone treatment. This treatment involves taking medicines that act on one of the male hormones (testosterone): ?By stopping your body from producing testosterone. ?By blocking testosterone from reaching cancer cells. Follow these instructions at home: Take wnti-rta-knwomtd and prescription medicines only as told by your health care provider. Maintain a healthy diet. Get plenty of sleep. Consider joining a support group for men who have prostate cancer. Meeting with a support group may help you learn to cope with the stress of having cancer. Keep all follow-up visits as told by your health care provider. This is important. If you have to go to the hospital, notify your cancer specialist (oncologist). Treatment for prostate cancer may affect sexual function. Continue to have intimate moments with your partner. This may include touching, holding, hugging, and caressing. Contact a health care provider if: You have trouble urinating. You have blood in your urine. You have pain in your hips, back, or chest. Get help right away if: You have weakness or numbness in your legs. You cannot control urination or your bowel movements (incontinence). You have trouble breathing. You have sudden chest pain. You have chills or a fever. Summary The prostate is a walnut-sized gland that is involved in the production of semen. It is located below a man's bladder, in front of the rectum. Prostate cancer is the abnormal growth of cells in the prostate gland. Treatment for this condition depends on several factors, including the stage of the cancer, your age, personal preferences, and your overall health. Talk with your health care provider about treatment options that are recommended for you. Consider joining a support group for men who have prostate cancer. Meeting with a support group may help you learn to cope with the stress of having cancer. This information is not intended to replace advice given to you by your health care provider. Make sure you discuss any questions you have with your health care provider. Document Released: 08/08/2006 Document Revised: 07/21/2018 Document Reviewed: 04/18/2017 [employer] Patient Education 2020 [place] [facility] 10/06/2022 08:46:11 With:Dewey COTTO, ARIAN Alegria, URO Address: When: Unknown [facility] 10-06-2022 Hospital Discharge instructions Patient Education 10/06/2022 08:36:32 Kegel Exercises Kegel Exercises Kegel exercises can help strengthen your pelvic floor muscles. The pelvic floor is a group of muscles that support your rectum, small intestine, and bladder. In females, pelvic floor muscles also help support the womb (uterus). These muscles help you control the flow of urine and stool. Kegel exercises are painless and simple, and they do not require any equipment. Your provider may suggest Kegel exercises to: Improve bladder and bowel control. Improve sexual response. Improve weak pelvic floor muscles after surgery to remove the uterus (hysterectomy) or (females). Improve weak pelvic floor muscles after prostate gland removal or surgery (males). Kegel exercises involve squeezing your pelvic floor muscles, which are the same muscles you squeeze when you try to stop the flow of urine or keep from passing gas. The exercises can be done while sitting, standing, or lying down, but it is best to vary your position. Exercises How to do Kegel exercises: 1.Squeeze your pelvic floor muscles tight. You should feel a tight lift in your rectal area. If you are a female, you should also feel a tightness in your vaginal area. Keep your stomach, buttocks, and legs relaxed. 2.Hold the muscles tight for up to 10 seconds. 3.Breathe normally. 4.Relax your muscles. 5.Repeat as told by your health care provider. Repeat this exercise daily as told by your health care provider. Continue to do this exercise for at least 4 6 weeks, or for as long as told by your health care provider. You may be referred to a physical therapist who can help you learn more about how to do Kegel exercises. Depending on your condition, your health care provider may recommend: Varying how long you squeeze your muscles. Doing several sets of exercises every day. Doing exercises for several weeks. Making Kegel exercises a part of your regular exercise routine. This information is not intended to replace advice given to you by your health care provider. Make sure you discuss any questions you have with your health care provider. Document Released: 07/25/2013 Document Revised: 03/28/2019 Document Reviewed: 03/28/2019 [employer] Patient Education 2020 [employer]. 10/06/2022 08:07:38 Brachytherapy for Prostate Cancer Brachytherapy for Prostate Cancer Brachytherapy for prostate cancer is radiation treatment that is placed inside of the prostate (prostate gland). There are several types of brachytherapy: Low-dose rate (LDR) therapy. This may involve temporary implants or permanent radioactive seed or pellet implants. The radiation does not travel far from the prostate, which means that healthy, noncancerous tissues around the prostate receive only a small dose of radiation. This helps to protect those tissues from injury. This type of treatment may be followed by a course of external beam radiation. ?Temporary low-dose implants are left in the prostate for 1 7 days. The implants are needles, applicators, or thin, plastic tubes (catheters) that contain radioactive material. You will need to stay in the hospital while the implant is in place. ?Permanent low-dose implants (seeds or pellets) are injected into the prostate, and they work for up to one year after they are inserted. They are left in place and are not removed. High-dose rate (HDR) therapy. This is given through needles, applicators, or catheters that contain radioactive material. The tubes are removed after treatment, and no radiation is left in the prostate. This type of treatment may be followed by a course of external beam radiation. Tell a health care provider about: Any allergies you have. All medicines you are taking, including vitamins, herbs, eye drops, creams, and lnst-ytc-esnvdcz medicines. Any problems you or family members have had with anesthetic medicines. Any surgeries you have had. Any blood disorders you have. Any medical conditions you have. What are the risks? Generally, this is a safe procedure. However, problems may occur, including: Inflammation of the rectum. Problems getting or keeping an erection (erectile dysfunction). Trouble urinating. Diarrhea. Bleeding. Loss of bowel control. What happens before the procedure? Staying hydrated Follow instructions from your health care provider about hydration, which may include: Up to 2 hours before the procedure you may continue to drink clear liquids, such as water, clear fruit juice, black coffee, and plain tea. Eating and drinking Follow instructions from your health care provider about eating and drinking, which may include: 8 hours before the procedure stop eating heavy meals or foods such as meat, fried foods, or fatty foods. 6 hours before the procedure stop eating light meals or foods, such as toast or cereal. 6 hours before the procedure stop drinking milk or drinks that contain milk. 2 hours before the procedure stop drinking clear liquids. Medicines Ask your health care provider about: ?Changing or stopping your regular medicines. This is especially important if you are taking diabetes medicines or blood thinners. ?Taking medicines such as aspirin and ibuprofen. These medicines can thin your blood. Do not take these medicines before your procedure if your health care provider instructs you not to. You may be given antibiotic medicine to help prevent infection. General instructions Plan to have someone take you home from the hospital or clinic. If you will be going home right after the procedure, plan to have someone with you for 24 hours. You may have imaging tests done, including an ultrasound, CT scan, or MRI. You may have blood tests done. You may have a test to check the electrical signals in your heart (electrocardiogram). You may need to take medicine to clean out your bowel (bowel prep). What happens during the procedure? To lower your risk of infection: ?Your health care team will wash or sanitize their hands. ?Your skin will be washed with soap. ?Hair may be removed from the surgical area. An IV will be inserted into one of your veins. You will be given one or more of the following: ?A medicine to help you relax (sedative). ?A medicine to numb the area (local anesthetic). ?A medicine to make you fall asleep (general anesthetic). You may have a thin, plastic tube (catheter) inserted to drain your bladder. If you are receiving brachytherapy with implants: ?A needle, applicator, or catheter will be inserted into the prostate. It will be inserted through a body cavity, such as the rectum, or through the tissue between the testicles and the anus (perineum). ?An X-ray, ultrasound, MRI, or CT scan will be used to guide the catheter or applicator toward the prostate. ?Radioactive seeds, wires, or ribbons will be fed through the catheter or applicator. ?If the high-dose method is used: ?The radioactive wires or ribbons will be left in for a few minutes and then removed. ?Once the treatment is finished, the catheter or applicator will be removed. ?If the low-dose method is used, the implant will stay in place for 1 7 days. ?You will remain in the hospital while the implant is in place. ?Once the treatment is finished, the radioactive material and catheter will be removed. If you are receiving permanent, low-dose brachytherapy: ?Small, radioactive seeds or pellets will be injected into your prostate. This may be done through a catheter, needle, or applicator. ?The catheter or applicator will be removed, leaving the seeds in the prostate. The procedure may vary among health care providers and hospitals. What happens after the procedure? Your blood pressure, heart rate, breathing rate, and blood oxygen level will be monitored until the medicines you were given have worn off. Do not drive for 24 hours if you were given a sedative. Summary Brachytherapy for prostate cancer is radiation treatment placed inside of the prostate (prostate gland). There are several types of brachytherapy for prostate cancer, including low-dose temporary treatment, low-dose permanent treatment, and high-dose temporary treatment. Temporary low-dose implants are left in the prostate for 1 7 days. Permanent low-dose implants are injected into the prostate and left in place. They work for up to one year after they are inserted. Permanent high-dose therapy is given through tubes that contain radioactive material. The tubes are removed after treatment, and no radiation is left in the prostate. This information is not intended to replace advice given to you by your health care provider. Make sure you discuss any questions you have with your health care provider. Document Released: 01/16/2007 Document Revised: 07/21/2018 Document Reviewed: 08/17/2017 [employer] Patient Education 2020 [employer] 10/06/2022 08:07:36 Laparoscopic Prostatectomy Laparoscopic Prostatectomy Laparoscopic prostatectomy is a surgery to remove the entire prostate gland and seminal vesicles. The surgery is performed using a thin, pencil-sized instrument (laparoscope) with a light and camera on the end to help the surgeon see inside the abdomen. This surgery may be done to treat prostate cancer or an enlarged prostate gland (benign prostatic hyperplasia). Laparoscopic prostatectomy is less invasive than other types of surgeries for removing the prostate gland. During this procedure, 4 5 small incisions are made in the abdomen. The laparoscope and other surgical instruments are placed through the incisions and the prostate gland is removed. Tell a health care provider about: Any allergies you have. All medicines you are taking, including vitamins, herbs, eye drops, creams, and skaw-ddq-pmvaima medicines. Any problems you or family members have had with anesthetic medicines. Any blood disorders you have. Any surgeries you have had. Any medical conditions you have. What are the risks? Generally, this is a safe procedure. However, problems may occur, including: Infection. Bleeding and the risk that you may require donated blood (transfusion). Allergic reactions to medicines. Damage to other structures or organs, such as the rectum, bladder, or small bowel. Blockage in the intestines or bowel. Scarring (stricture) that causes problems with the flow of urine. Inability to control when you urinate (incontinence). Inability to get or keep an erection (erectile dysfunction). What happens before the procedure? Staying hydrated Follow instructions from your health care provider about hydration, which may include: Up to 2 hours before the procedure you may continue to drink clear liquids, such as water, clear fruit juice, black coffee, and plain tea. Eating and drinking restrictions Follow instructions from your health care provider about eating and drinking, which may include: 8 hours before the procedure stop eating heavy meals or foods such as meat, fried foods, or fatty foods. 6 hours before the procedure stop eating light meals or foods, such as toast or cereal. 6 hours before the procedure stop drinking milk or drinks that contain milk. 2 hours before the procedure stop drinking clear liquids. General instructions Ask your health care provider about: ?Changing or stopping your regular medicines. This is especially important if you are taking diabetes medicines or blood thinners. ?Taking medicines such as aspirin and ibuprofen. These medicines can thin your blood. Do not take these medicines before your procedure if your health care provider instructs you not to. Follow your health care provider's instructions about cleansing your bowels. Do not use any products that contain nicotine or tobacco, such as cigarettes and e-cigarettes. If you need help quitting, ask your health care provider. Practice any breathing exercises as told by your health care provider. Plan to have someone take you home from the hospital or clinic. If you will be going home right after the procedure, plan to have someone with you for 24 hours. What happens during the procedure? To reduce your risk of infection: ?Your health care team will wash or sanitize their hands. ?Your skin will be washed with soap. ?Hair may be removed from the surgical area. An IV tube will be inserted into one of your veins. You will be given one or more of the following: ?A medicine to help you relax (sedative). ?A medicine to make you fall asleep (general anesthetic). A tube (Lr catheter) will be inserted into your urethra to drain urine from your bladder. An incision will be made in your abdomen at your belly button. A laparoscope will be inserted into your abdomen through the incision. Four or more small incisions will be made. Surgical instruments will be inserted into the incisions and used to remove your prostate and seminal vesicles. Your urethra will be disconnected from your bladder. Your urethra will be reconnected to the group of muscles that help push urine through the urethra (bladder neck). The laparoscope and other surgical instruments will be removed. Your incisions will be closed with stitches (sutures). The procedure may vary among health care providers and hospitals. What happens after the procedure? Your blood pressure, heart rate, breathing rate, and blood oxygen level will be monitored until the medicines you were given have worn off. You may continue to receive fluids and medicines through an IV tube. You may be given antibiotics, or medicine to help relieve pain or nausea. You will be encouraged to walk as soon as possible. You will also use a device or do breathing exercises to keep your lungs clear. You may continue to have a Lr catheter draining your urine. You will be instructed on how to care for this at home. Do not drive for 24 hours if you received a sedative. Summary Laparoscopic prostatectomy is a surgery to remove the entire prostate gland and seminal vesicles. The surgery is performed using a thin, pencil-sized instrument (laparoscope) with a light and camera on the end to help the surgeon see inside the abdomen. You may continue to receive fluids and medicines through an IV tube. You may be given antibiotics, or medicine to help relieve pain or nausea. You will continue to have a Lr catheter draining your urine. You will be instructed on how to care for this at home. Plan to have someone take you home from the hospital or clinic. This information is not intended to replace advice given to you by your health care provider. Make sure you discuss any questions you have with your health care provider. Document Released: 08/08/2006 Document Revised: 07/21/2018 Document Reviewed: 07/25/2017 [employer] Patient Education 2020 [employer]. 10/06/2022 07:50:11 Prostate Cancer Prostate Cancer The prostate is a walnut-sized gland that is involved in the production of semen. It is located below a man's bladder, in front of the rectum. Prostate cancer is the abnormal growth of cells in the prostate gland. What are the causes? The exact cause of this condition is not known. What increases the risk? This condition is more likely to develop in men who: Are older than age 65. Are -[place]. Are obese. Have a family history of prostate cancer. Have a family history of breast cancer. What are the signs or symptoms? Symptoms of this condition include: A need to urinate often. Weak or interrupted flow of urine. Trouble starting or stopping urination. Inability to urinate. Pain or burning during urination. Painful ejaculation. Blood in urine or semen. Persistent pain or discomfort in the lower back, lower abdomen, hips, or upper thighs. Trouble getting an erection. Trouble emptying the bladder all the way. How is this diagnosed? This condition can be diagnosed with: A digital rectal exam. For this exam, a health care provider inserts a gloved finger into the rectum to feel the prostate gland. A blood test called a prostate-specific antigen (PSA) test. An imaging test called transrectal ultrasonography. A procedure in which a sample of tissue is taken from the prostate and examined under a microscope (prostate biopsy). Once the condition is diagnosed, tests will be done to determine how far the cancer has spread. This is called staging the cancer. Staging may involve imaging tests, such as: A bone scan. A CT scan. A PET scan. An MRI. The stages of prostate cancer are as follows: Stage I. At this stage, the cancer is found in the prostate only. The cancer is not visible on imaging tests and it is usually found by accident, such as during a prostate surgery. Stage II. At this stage, the cancer is more advanced than it is in stage I, but the cancer has not spread outside the prostate. Stage III. At this stage, the cancer has spread beyond the outer layer of the prostate to nearby tissues. The cancer may be found in the seminal vesicles, which are near the bladder and the prostate. Stage IV. At this stage, the cancer has spread other parts of the body, such as the lymph nodes, bones, bladder, rectum, liver, or lungs. How is this treated? Treatment for this condition depends on several factors, including the stage of the cancer, your age, personal preferences, and your overall health. Talk with your health care provider about treatment options that are recommended for you. Common treatments include: Observation for early stage prostate cancer (active surveillance). This involves having exams, blood tests, and in some cases, more biopsies. For some men, this is the only treatment needed. Surgery. Types of surgeries include: ?Open surgery. In this surgery, a larger incision is made to remove the prostate. ?A laparoscopic prostatectomy. This is a surgery to remove the prostate and lymph nodes through several, small incisions. It is often referred to as a minimally invasive surgery. ?A robotic prostatectomy. This is a surgery to remove the prostate and lymph nodes with the help of a robotic arm that is controlled by a computer. ?Orchiectomy. This is a surgery to remove the testicles. ?Cryosurgery. This is a surgery to freeze and destroy cancer cells. Radiation treatment. Types of radiation treatment include: ?External beam radiation. This type aims beams of radiation from outside the body at the prostate to destroy cancerous cells. ?Brachytherapy. This type uses radioactive needles, seeds, wires, or tubes that are implanted into the prostate gland. Like external beam radiation, brachytherapy destroys cancerous cells. An advantage is that this type of radiation limits the damage to surrounding tissue and has fewer side effects. High-intensity, focused ultrasonography. This treatment destroys cancer cells by delivering high-energy ultrasound waves to the cancerous cells. Chemotherapy medicines. This treatment kills cancer cells or stops them from multiplying. Hormone treatment. This treatment involves taking medicines that act on one of the male hormones (testosterone): ?By stopping your body from producing testosterone. ?By blocking testosterone from reaching cancer cells. Follow these instructions at home: Take xtxs-oao-fhxnuyg and prescription medicines only as told by your health care provider. Maintain a healthy diet. Get plenty of sleep. Consider joining a support group for men who have prostate cancer. Meeting with a support group may help you learn to cope with the stress of having cancer. Keep all follow-up visits as told by your health care provider. This is important. If you have to go to the hospital, notify your cancer specialist (oncologist). Treatment for prostate cancer may affect sexual function. Continue to have intimate moments with your partner. This may include touching, holding, hugging, and caressing. Contact a health care provider if: You have trouble urinating. You have blood in your urine. You have pain in your hips, back, or chest. Get help right away if: You have weakness or numbness in your legs. You cannot control urination or your bowel movements (incontinence). You have trouble breathing. You have sudden chest pain. You have chills or a fever. Summary The prostate is a walnut-sized gland that is involved in the production of semen. It is located below a man's bladder, in front of the rectum. Prostate cancer is the abnormal growth of cells in the prostate gland. Treatment for this condition depends on several factors, including the stage of the cancer, your age, personal preferences, and your overall health. Talk with your health care provider about treatment options that are recommended for you. Consider joining a support group for men who have prostate cancer. Meeting with a support group may help you learn to cope with the stress of having cancer. This information is not intended to replace advice given to you by your health care provider. Make sure you discuss any questions you have with your health care provider. Document Released: 08/08/2006 Document Revised: 07/21/2018 Document Reviewed: 04/18/2017 [employer] Patient Education 2019 [employer]. Follow Up Care 08/04/2022 10:29:21 With:Dewey COTTO, ARIAN Alegria, URO Address: When: Unknown [facility] 08-04-2022 Hospital Discharge instructions Patient Education 08/04/2022 10:15:16 Brachytherapy for Prostate Cancer Brachytherapy for Prostate Cancer Brachytherapy for prostate cancer is radiation treatment that is placed inside of the prostate (prostate gland). There are several types of brachytherapy: Low-dose rate (LDR) therapy. This may involve temporary implants or permanent radioactive seed or pellet implants. The radiation does not travel far from the prostate, which means that healthy, noncancerous tissues around the prostate receive only a small dose of radiation. This helps to protect those tissues from injury. This type of treatment may be followed by a course of external beam radiation. ?Temporary low-dose implants are left in the prostate for 1 7 days. The implants are needles, applicators, or thin, plastic tubes (catheters) that contain radioactive material. You will need to stay in the hospital while the implant is in place. ?Permanent low-dose implants (seeds or pellets) are injected into the prostate, and they work for up to one year after they are inserted. They are left in place and are not removed. High-dose rate (HDR) therapy. This is given through needles, applicators, or catheters that contain radioactive material. The tubes are removed after treatment, and no radiation is left in the prostate. This type of treatment may be followed by a course of external beam radiation. Tell a health care provider about: Any allergies you have. All medicines you are taking, including vitamins, herbs, eye drops, creams, and fwql-xhh-wiwwaeu medicines. Any problems you or family members have had with anesthetic medicines. Any surgeries you have had. Any blood disorders you have. Any medical conditions you have. What are the risks? Generally, this is a safe procedure. However, problems may occur, including: Inflammation of the rectum. Problems getting or keeping an erection (erectile dysfunction). Trouble urinating. Diarrhea. Bleeding. Loss of bowel control. What happens before the procedure? Staying hydrated Follow instructions from your health care provider about hydration, which may include: Up to 2 hours before the procedure you may continue to drink clear liquids, such as water, clear fruit juice, black coffee, and plain tea. Eating and drinking Follow instructions from your health care provider about eating and drinking, which may include: 8 hours before the procedure stop eating heavy meals or foods such as meat, fried foods, or fatty foods. 6 hours before the procedure stop eating light meals or foods, such as toast or cereal. 6 hours before the procedure stop drinking milk or drinks that contain milk. 2 hours before the procedure stop drinking clear liquids. Medicines Ask your health care provider about: ?Changing or stopping your regular medicines. This is especially important if you are taking diabetes medicines or blood thinners. ?Taking medicines such as aspirin and ibuprofen. These medicines can thin your blood. Do not take these medicines before your procedure if your health care provider instructs you not to. You may be given antibiotic medicine to help prevent infection. General instructions Plan to have someone take you home from the hospital or clinic. If you will be going home right after the procedure, plan to have someone with you for 24 hours. You may have imaging tests done, including an ultrasound, CT scan, or MRI. You may have blood tests done. You may have a test to check the electrical signals in your heart (electrocardiogram). You may need to take medicine to clean out your bowel (bowel prep). What happens during the procedure? To lower your risk of infection: ?Your health care team will wash or sanitize their hands. ?Your skin will be washed with soap. ?Hair may be removed from the surgical area. An IV will be inserted into one of your veins. You will be given one or more of the following: ?A medicine to help you relax (sedative). ?A medicine to numb the area (local anesthetic). ?A medicine to make you fall asleep (general anesthetic). You may have a thin, plastic tube (catheter) inserted to drain your bladder. If you are receiving brachytherapy with implants: ?A needle, applicator, or catheter will be inserted into the prostate. It will be inserted through a body cavity, such as the rectum, or through the tissue between the testicles and the anus (perineum). ?An X-ray, ultrasound, MRI, or CT scan will be used to guide the catheter or applicator toward the prostate. ?Radioactive seeds, wires, or ribbons will be fed through the catheter or applicator. ?If the high-dose method is used: ?The radioactive wires or ribbons will be left in for a few minutes and then removed. ?Once the treatment is finished, the catheter or applicator will be removed. ?If the low-dose method is used, the implant will stay in place for 1 7 days. ?You will remain in the hospital while the implant is in place. ?Once the treatment is finished, the radioactive material and catheter will be removed. If you are receiving permanent, low-dose brachytherapy: ?Small, radioactive seeds or pellets will be injected into your prostate. This may be done through a catheter, needle, or applicator. ?The catheter or applicator will be removed, leaving the seeds in the prostate. The procedure may vary among health care providers and hospitals. What happens after the procedure? Your blood pressure, heart rate, breathing rate, and blood oxygen level will be monitored until the medicines you were given have worn off. Do not drive for 24 hours if you were given a sedative. Summary Brachytherapy for prostate cancer is radiation treatment placed inside of the prostate (prostate gland). There are several types of brachytherapy for prostate cancer, including low-dose temporary treatment, low-dose permanent treatment, and high-dose temporary treatment. Temporary low-dose implants are left in the prostate for 1 7 days. Permanent low-dose implants are injected into the prostate and left in place. They work for up to one year after they are inserted. Permanent high-dose therapy is given through tubes that contain radioactive material. The tubes are removed after treatment, and no radiation is left in the prostate. This information is not intended to replace advice given to you by your health care provider. Make sure you discuss any questions you have with your health care provider. Document Released: 01/16/2007 Document Revised: 07/21/2018 Document Reviewed: 08/17/2017 [employer] Patient Education 2020 [employer]. Follow Up Care 06/02/2022 10:42:40 With:Dewey COTTO, ARIAN Alegria, URO Address: When:1 month Comments:Discuss PSMA PET scan & treatment options [facility] 07-21-2022 Note OPERATIVE NOTE OPERATION DATE: 07/21/2022 PREOPERATIVE DIAGNOSIS: Left lower quadrant abdominal pain. POSTOPERATIVE DIAGNOSIS: Rectal polyp. PROCEDURE: Colonoscopy to cecum with cold snare polypectomy x1 for a 4 mm rectal polyp. SURGEON: Curtis Gracia M.D. ANESTHESIA: Monitored anesthesia care. ESTIMATED BLOOD LOSS: Less than 1 mL. INDICATIONS AND CONSENT: Patient is a 66-year-old male history of intermittent left lower quadrant abdominal pain. Indications, risks, benefits, alternatives of proceeding with colonoscopy were explained extensively to the patient, including the risks of bleeding, colon perforation or anesthetic complications. All of his questions were answered. Informed consent was obtained. PROCEDURE: Patient brought to the operating room, placed in the left lateral decubitus position. Monitored anesthesia care was provided. Rectal exam was performed which showed no masses or blood. The scope was inserted into the anal canal. Under direct visualization was advanced. It was advanced to the cecum where cecal markings were clearly identified. There was noted to be a good prep. Upon withdrawal of the scope, mucosal surface were carefully examined. There were no mass lesions or inflammatory changes. No significant diverticulosis. Within the rectum, there was noted to be a 4 mm sessile polyp that was removed with cold snare with good hemostasis. The scope was retroflexed in the anal canal. There was no significant hemorrhoidal disease. Scope was then withdrawn. Patient tolerated procedure well, was sent to recovery room in good condition. CC: Adilson Salazar M.D. [facility] 07-06-2022 Hospital Discharge instructions Patient Education 07/06/2022 16:33:47 Post Op Patient Instructions - FT (CUSTOM) 07/06/2022 15:49:27 Post Op Patient Instructions - FT (Custom) (CUSTOM) 07/06/2022 14:52:53 EU - Transrectal Ultrasound of the Prostate with US guided biopsy Discharge Instructions (Custom) Transperineal?Biopsy of the Prostate Discharge Instructions After your procedure: You may see blood in your urine for 4 to 5 weeks. When your urine turns red, limit your activities and drink plenty of fluids. This is normal and expected. If you go home with a Lr catheter in place, you will have it removed at your follow-up clinic appointment or by your own doctor (urologist). Your may be allowed to remove your Lr catheter at home. If so, our nursing staff will teach you how to remove the catheter. You may have discoloration (black/blue), pain, and swelling to the?perineal?area (between your thighs) for up to 3 weeks. Ice, elevation, and supportive underwear can help ease these symptoms. ? Medications: You may begin taking aspirin or other blood thinners. Antibiotics may be prescribed by your doctor. If they are, take them until they are gone. Tylenol alternated with ibuprofen as needed for pain. Activity: You may begin driving 24 hours after surgery if you are not taking prescription pain medication. No heavy lifting for 2?days (nothing greater than 10 pounds). ? Diet: Drink plenty of fluids. Continue your normal diet. When to call the doctor/ go to the ER: If you experience a temperature of 101.5 F or greater If you experience chills with or without fever If you experience pain that gets worse If you have difficulty urinating or catheter-related problems Please call the office if you do not receive a call in the next 2 days to arrange for your post-operative appointment in 1-2 weeks [phone] or [phone] Follow Up Care 06/02/2022 10:25:59 With:Milvia Palomo Address: [address], [facility] [place] [address]- [phone] Business (1) [address], [address] [address] [phone] Business (1) When: Unknown Comments:Office to followup appointment in 2 weeks for pathology review [facility] 07-06-2022 Evaluation + Plan note Extrac shelby from: Title:Post-anesthesia - General Author:Scout Dumont DO Date:07/06/22 Plan Transfer/ Discharge: Condition stable. Extracted from: Title:EU - MRI fusion transp erineal prostate biopsy Author:Milvia Palomo MD Date:07/06/22 Impression and Plan Diagnosis Elevated PSA ([id number] R97.20, Discharge, Medical). Diagnosis Elevated PSA ([id number] R97.20, Discharge, Medical). Counseled: Patient, Family. Extracted from: Title:Pre-anesthesia - Adult Author:Scout Lamas Jr., DO Date:07/06/22 Plan [place] [employer] (ASA) physical status classification: Class III. Anesthetic Preoperative Plan Anesthesia: Monitored anesthesia care. Anesthetic plan, risks, benefits, and alternatives discussed with the patient and/or family. Patient verbalized understanding. Adverse reactions, complications, and alternatives discujssed. Consent signed and on chart.. Future Appointments Appointment Date:07/21/2022 09:30:00 AM Scheduled Provider:Milvia Palomo MD Location:[facility] Appointment Type:URO Office Visit Appointment Date:10/12/2022 10:30:00 AM Scheduled Provider:Asim Tanner Jr., MD Location:[facility] Appointment Type:URO Office Visit [facility]11-14-2022 Note [id number]:127[facility] 06-25-2022 NoteChief Complaint consultation for LLQ pain HPI Staff 66 year old male presents on consultation from Dr. Salazar for LLQ pain. Reports pain for 2-3 weeks. Reports pain is daily, intermittent and describes as crampy and stabbing in nature. Pain worse after eating. Denies nausea or vomiting. Appetite good. Denies rectal pain, rectal bleeding or change in bowel habits. ABD x-ray completed 06/15 with moderate-large stool burden. Takes daily FiberCon. Last colonoscopy completed 2011, reported normal per patient. History of Present Illness 66 yo male with h/o htn, DMII, CKD, stage III, hyperlipidemia, ALLISON, asthma, h/o CVA, h/o DVT, BPH, referred for several week h/o intermittent LLQ pain, crampy/sharp/stabbing, no radiation; worse after eating; no food triggers; no relieving factors; lasts several hours; no change in bms or blood in stools; normal formed stools every other day; no decreased caliber of stools; no previous abdominal operations; last colonoscopy 2011, reportedly wnl; on baby asa daily, no NSAIDs, no SBE prophylaxis;no fmhx of GI malignancy or IBD; no tobacco use. Review of Systems PHQ Score Initial Depression Screen Score: 0 ROS - Provider Constitutional: no fever, no sweats, no weight loss. Eyes: no glasses, no blurred vision, no visual loss. ENMT: no dentures, no hoarseness, no swallowing difficulties, no hearing loss, no ear infection(s),no nose bleeds. Cardiovascular: normal blood pressure, no chest pain, regular heartbeat, no heart murmur. Respiratory: no shortness of breath, no cough, no asthma, no wheezing. Gastrointestinal: no nausea, no vomiting, no diarrhea, no constipation, no blood in stool, no change in bowel habits, moderate abdominal pain, no hepatitis. Genitourinary: no kidney stones, no urine infection, no dysuria. Musculoskeletal: no pain, no weakness. Skin: no changing moles, no rash, no skin lumps. Neurologic: no seizures, no epilepsy, no headache. Psychiatric: no emotional or psychiatric problem. Heme/Lymph: no bleeding problems, no anemia, no blood clots, no transfusions. Allergy/Immunologic: no swollen lymph nodes/glands, no IV drug abuse. Other: Additional ROS info: Except as noted in the above Review of Systems and in the History of Present Illness, all other systems have been reviewed and are negative or noncontributory. Physical Exam Vitals & Measurements HR: 72(Peripheral) RR: 16 BP: 142/86 HT: 72 in HT: 183 cm WT: 104.1 kg WT: 229.02 lb BMI: 31.08 HEENT: normal conjunctiva, sclera clear, no scleral icterus, EOM intact, PERRLA, oral mucosa moist without lesions. Neck: trachea midline, no mass, symmetric, no thyromegaly or nodules, no adenopathy Respiratory: lungs CTA, respirations non labored. Cardiovascular: regular rate and rhythm, no murmur, no pedal edema or varicosities. Gastrointestinal: soft, non distended, no tenderness, no masses, no palpable hernias, diastasis recti no, no hepatosplenomegaly; normal bs Lymphatic: no cervical adenopathy, no axillary adenopathy, no inguinal adenopathy. Musculoskeletal: normal gait, digits and nails without infection, nodes, cyanosis, clubbing. Skin: no rashes, no lesions, no ulcers, no subcutaneous nodules, induration. Psychiatric/Neuro: oriented to time, place, person, judgement normal, affect appropriate for age, insight intact, no focal deficits. Tests: labs reviewed, x-rays reviewed, review of old records completed, _ surgical options, risks, and possible complications with patient. Assessment/Plan 1. Abdominal pain, LLQ (R10.32: Left lower quadrant pain) plan abd/pelvic ct scan with contrast for further evaluation, and colonoscopy with anesthesia; informed consent obtained. Ordered: CT Abdomen/Pelvis w/ Contrast 2. BMI 31.0-31.9,adult (Z68.31: Body mass index [BMI] 31.0-31.9, adult) recommend diet and exercise. Follow-up No qualifying data available Problem List/Past Medical History Ongoing Abdominal pain, LLQ Asthma BMI 31.0-31.9,adult BPH with elevated PSA BPH with urinary obstruction CKD (chronic kidney disease), stage III Depression Diabetes Dyshidrotic eczema Elevated PSA Eosinophilia Erectile dysfunction GERD (gastroesophageal reflux disease) History of CVA (cerebrovascular accident) History of DVT (deep vein thrombosis) Hyperlipemia Hypertension Incontinence of urine Lateral rectus palsy LLQ pain Morbid obesity Nocturia ALLISON (obstructive sleep apnea) Urgency of urination Vitamin D deficiency Historical Stroke Procedure/Surgical History Transrectal biopsy of prostate using ultrasound (US) guidance (09/08/2020), Colonoscopy (2011), Arthroplasty of knee, Arthroscopy of shoulder, Insertion of catheter into spinal canal for infusion of therapeutic substance, Lumbar discectomy. Medications amLODIPine 10 mg Tab, Oral, Daily aspirin 81 mg Oral EC Tab, Oral, Daily atorvastatin 80 mg Tab, Oral, Daily budesonide 0.5 mg/2 mL Inh Susp, 0.5 mg= 2 mL, NEB, BID c (more content not included)...[facility] Comment: Electronically Signed By: BASIL COTTO, Curtis Monzon\Date and Time Signed: 06/25/22 15:55 [id number] Note [id number]:127[facility] 06-02-2022 Hospital Discharge instructions Patient Education 06/02/2022 10:03:06 Erectile Dysfunction Erectile Dysfunction Erectile dysfunction (ED) is the inability to get or keep an erection in order to have sexual intercourse. Erectile dysfunction may include: Inability to get an erection. Lack of enough hardness of the erection to allow penetration. Loss of the erection before sex is finished. What are the causes? This condition may be caused by: Certain medicines, such as: ?Pain relievers. ?Antihistamines. ?Antidepressants. ?Blood pressure medicines. ?Water pills (diuretics). ?Ulcer medicines. ?Muscle relaxants. ?Drugs. Excessive drinking. Psychological causes, such as: ?Anxiety. ?Depression. ?Sadness. ?Exhaustion. ?Performance fear. ?Stress. Physical causes, such as: ?Artery problems. This may include diabetes, smoking, liver disease, or atherosclerosis. ?High blood pressure. ?Hormonal problems, such as low testosterone. ?Obesity. ?Nerve problems. This may include back or pelvic injuries, diabetes mellitus, multiple sclerosis, or Parkinson disease. What are the signs or symptoms? Symptoms of this condition include: Inability to get an erection. Lack of enough hardness of the erection to allow penetration. Loss of the erection before sex is finished. Normal erections at some times, but with frequent unsatisfactory episodes. Low sexual satisfaction in either partner due to erection problems. A curved penis occurring with erection. The curve may cause pain or the penis may be too curved to allow for intercourse. Never having nighttime erections. How is this diagnosed? This condition is often diagnosed by: Performing a physical exam to find other diseases or specific problems with the penis. Asking you detailed questions about the problem. Performing blood tests to check for diabetes mellitus or to measure hormone levels. Performing other tests to check for underlying health conditions. Performing an ultrasound exam to check for scarring. Performing a test to check blood flow to the penis. Doing a sleep study at home to measure nighttime erections. How is this treated? This condition may be treated by: Medicine taken by mouth to help you achieve an erection (oral medicine). Hormone replacement therapy to replace low testosterone levels. Medicine that is injected into the penis. Your health care provider may instruct you how to give yourself these injections at home. Vacuum pump. This is a pump with a ring on it. The pump and ring are placed on the penis and used to create pressure that helps the penis become erect. Penile implant surgery. In this procedure, you may receive: ?An inflatable implant. This consists of cylinders, a pump, and a reservoir. The cylinders can be inflated with a fluid that helps to create an erection, and they can be deflated after intercourse. ?A semi-rigid implant. This consists of two silicone rubber rods. The rods provide some rigidity. They are also flexible, so the penis can both curve downward in its normal position and become straight for sexual intercourse. Blood vessel surgery, to improve blood flow to the penis. During this procedure, a blood vessel from a different part of the body is placed into the penis to allow blood to flow around (bypass) damaged or blocked blood vessels. Lifestyle changes, such as exercising more, losing weight, and quitting smoking. Follow these instructions at home: Medicines Take geqa-dcb-wxqckoi and prescription medicines only as told by your health care provider. Do not increase the dosage without first discussing it with your health care provider. If you are using self-injections, perform injections as directed by your health care provider. Makesure to avoid any veins that are on the surface of the penis. After giving an injection, apply pressure to the injection site for 5 minutes. General instructions Exercise regularly, as directed by your health care provider. Work with your health care provider to lose weight, if needed. Do not use any products that contain nicotine or tobacco, such as cigarettes and e-cigarettes. If you need help quitting, ask your health care provider. Before using a vacuum pump, read the instructions that come with the pump and discuss any questionswith your health care provider. Keep all follow-up visits as told by your health care provider. This is important. Contact a health care provider if: You feel nauseous. You vomit. Get help right away if: You are taking oral or injectable medicines and you have an erection that lasts longer than 4 hours. If your health care provider is unavailable, go to the nearest emergency room for evaluation. An erection that lasts much longer than 4 hours can result in permanent damage to your penis. You have severe pain in your groin or abdomen. You develop redness or severe swelling of your penis. You have redness spreading up into your groin or lower abdomen. You are unable to urinate. You experience chest pain or a rapid heart beat (palpitations) after taking oral medicines. Summary Erectile dysfunction (ED) is the inability to get or keep an erection during sexual intercourse. This problem can usually be treated successfully. This condition is diagnosed based on a physical exam, your symptoms, and tests to determine the cause. Treatment varies depending on the cause, and may include medicines, hormone therapy, surgery, orvacuum pump. You may need follow-up visits to make sure that you are using your medicines or devices correctly. Get help right away if you are taking or injecting medicines and you have an erection that lasts longer than 4 hours. This information is not intended to replace advice given to you by your health care provider. Make sure you discuss any questions you have with your health care provider. Document Released: 08/05/2001 Document Revised: 07/21/2018 Document Reviewed: 08/24/2017 [employer] Patient Education 2020 [employer]. Follow Up Care 04/21/2022 12:43:56 With:Dewey COTTO, ARIAN Alegria, URO Address: [address], [place] [address] [phone] When: Unknown [facility] 08-31-2022 Hospital Discharge instructions Patient Education 04/21/2022 12:03:50 Prostate Cancer Screening Prostate Cancer Screening The prostate is a walnut-sized gland that is located below the bladder and in front of the rectum in males. The function of the prostate (prostate gland) is to add fluid to semen during ejaculation. Prostate cancer is the second most common type of cancer in men. A screening test for cancer is a test that is done before cancer symptoms start. Screening can helpto identify cancer at an early stage, when the cancer can be treated more easily. The recommended prostate cancer screening test is a blood test called the prostate-specific antigen (PSA) test. PSA is a protein that is made in the prostate. As you age, your prostate naturally produces more PSA. Abnormally high PSA levels may be caused by: Prostate cancer. An enlarged prostate that is not caused by cancer (benign prostatic hyperplasia, BPH). This condition is very common in older men. A prostate gland infection (prostatitis). Medicines to assist with hair growth, such as finasteride. Depending on the PSA results, you may need more tests, such as: A physical exam to check the size of your prostate gland. Blood and imaging tests. A procedure to remove tissue samples from your prostate gland for testing (biopsy). Who should have screening? Screening recommendations vary based on age. If you are younger than age 40, screening is not recommended. If you are age 40 54 and you have no risk factors, screening is not recommended. If you are younger than age 55, ask your health care provider if you need screening if you have oneof these risk factors: ?Being of -[place] descent. ?Having a family history of prostate cancer. If you are age 55 69, talk with your health care provider about your need for screening and how often screening should be done. If you are older than age 70, screening is not recommended. This is because the risks that screening can cause are greater than the benefits that it may provide (risks outweigh the benefits). If you are at high risk for prostate cancer, your health care provider may recommend that you have screenings more often or start screening at a younger age. You may be at high risk if you: Are older than age 55. Are -[place]amese. Have a father, brother, or uncle who has been diagnosed with prostate cancer. The risk may be higher if your family member's cancer occurred at an early age. What are the benefits of screening? There is a small chance that screening may lower your risk of dying from prostate cancer. The chance is small because prostate cancer is typically a slow-growing cancer, and most men with prostate cancer from a different cause. What are the risks of screening? The main risk of prostate cancer screening is diagnosing and treating prostate cancer that would never have caused any symptoms or problems (overdiagnosis and overtreatment). PSA screening cannot tell you if your PSA is high due to cancer or a different cause. A prostate biopsy is the only procedure to diagnose prostate cancer. Even the results of a biopsy may not tell you if your cancer needs deni treated. Slow-growing prostate cancer may not need any treatment other than monitoring, so diagnosing and treating it may cause unnecessary stress or other side effects. A prostate biopsy may also cause: Infection or fever. A false negative. This is a result that shows that you do not have prostate cancer when you actually do have prostate cancer. Questions to ask your health care provider When should I start prostate cancer screening? What is my risk for prostate cancer? How often do I need screening? What type of screening tests do I need? How do I get my test results? What do my results mean? Do I need treatment? Contact a health care provider if: You have difficulty urinating. You have pain when you urinate or ejaculate. You have blood in your urine or semen. You have pain in your back or in the area of your prostate. You have trouble getting or maintaining an erection (erectile dysfunction, ED). Summary Prostate cancer is a common type of cancer in men. The prostate (prostate gland) is located below the bladder and in front of the rectum. This gland adds fluid to semen during ejaculation. Prostate cancer screening may identify cancer at an early stage, when the cancer can be treated more easily. The prostate-specific antigen (PSA) test is the recommended screening test for prostate cancer. Discuss the risks and benefits of prostate cancer screening with your health care provider. If you are age 70 or older, screening is likely to lead to more risks than benefits (risks outweigh the benefits). This information is not intended to replace advice given to you by your health care provider. Make sure you discuss any questions you have with your health care provider. Document Released: 05/19/2018 Document Revised: 07/21/2018 Document Reviewed: 05/19/2018 [employer] Patient Education 2020 [employer] Follow Up Care 03/08/2022 11:37:35 With:Milvia Palomo MD, DAYNAL, URO Address: When: Unknown [facility] evaluation + Plan note Future Appointments Appointment Date:05/12/2022 10:45:00 AM Scheduled Provider:Milvia Palomo MD Location:[facility] Appointment Type:URO Office Visit Appointment Date:10/12/2022 10:30:00 AM Scheduled Provider:Asim Tanner Jr., MD Location:[facility] Appointment Type:URO Office Visit [facility] evaluation + Plan note Future Appointments Appointment Date:06/29/2022 03:30:00 PM Scheduled Provider: Location:[facility] Appointment Type:Surgical PAT FT Appointment Date:07/06/2022 01:30:00 PM Scheduled Provider: Location:[facility] Appointment Type:Surgery FT Appointment Date:07/21/2022 09:30:00 AM Scheduled Provider:Milvia Palomo MD Location:[facility] Appointment Type:URO Office Visit Appointment Date:10/12/2022 10:30:00 AM Scheduled Provider:Asim Tanner Jr., MD Location:[facility] Appointment Type:URO Office Visit [facility] evaluation + Plan note Future Appointments Appointment Date:06/29/2022 03:00:00 PM Scheduled Provider: Location:[facility] Appointment Type:Surgery PAT COVID Testing Appointment Date:06/29/2022 03:30:00 PM Scheduled Provider: Location:[facility] Appointment Type:Surgical PAT FT Appointment Date:07/06/2022 01:30:00 PM Scheduled Provider: Location:[facility] Appointment Type:Surgery FT Appointment Date:07/21/2022 09:30:00 AM Scheduled Provider:Milvia Palomo MD Location:[facility] Appointment Type:URO Office Visit Appointment Date:10/12/2022 10:30:00 AM Scheduled Provider:Asim Tanner Jr., MD Location:[facility] Appointment Type:URO Office Visit General Surgery [facility] Evaluation + Plan note Future Appointments Appointment Date:07/06/2022 01:30:00 PM Scheduled Provider: Location:[facility] Appointment Type:Surgery FT Appointment Date:07/21/2022 09:30:00 AM Scheduled Provider:Milvia Palomo MD Location:[facility] Appointment Type:URO Office Visit Appointment Date:10/12/2022 10:30:00 AM Scheduled Provider:Asim Tanner Jr., MD Location:[facility]ments Appointment Date:09/15/2022 10:30:00 AM Scheduled Provider:Milvia Palomo MD Location:[facility] Appointment Type:URO Office Visit [facility] evaluation + Plan note Future Appointments Appointment Date:10/06/2022 07:45:00 AM Scheduled Provider:Milvia Palomo MD Location:[facility]ments Appointment Date:11/03/2022 10:10:00 AM Scheduled Provider:Milvia Palomo MD Location:[facility] Appointment Type:URO Office Visit Diagnostic Tests Pending * PSA Free & Total 10/06/22 [facility] evaluation + Plan note Future Appointments Appointment Date:02/02/2023 10:15:00 AM Scheduled Provider:Milvia Palomo MD Location:[facility] Appointment Type:URO Office Visit [facility] evaluation noteNo assessment information available [facility] Work Phone: Hospital course Narrative No data available for this section [facility] Hospital Discharge instructions No data available for this section General Surgery [facility] Progress note No data available for this section [facility] Discharge Instructions * Discharge Instr - JOSIE* Mallika Ellis RN - 06/08/2019 5:39 PM EDT Continuity of Care Form Patient Name: Eunice Marte : 1955 Admit date: 06/05/2019 Discharge date: Code Status Order: Full Code Advance Directives: Advance Care Flowsheet Documentation Date/Time Healthcare Directive Type of Healthcare Directive Copy in Chart Healthcare Agent Appointed Healthcare Agent's Name Healthcare Agent's Phone Number 06/08/19 0755 No, patient does not have an advance directive for healthcare treatment -- -- -- -- -- Admitting Physician: Oscar Harp MD PCP: Adilson Salazar MD Discharging Nurse: Discharging Hospital Unit/Room#: 0515/0515-01 Discharging Unit Phone Number: Emergency Contact: Extended Emergency Contact Information Primary Emergency Contact: [facility] Relation: Spouse Support Services Manager needed? No Past Surgical History: No past surgical history on file. Immunization History: There is no immunization history on file for this patient. Active Problems: Patient Active Problem List Diagnosis Code Cerebrovascular accident (CVA) ([facility]) I63.9 Acute left hemiparesis ([facility]) G81.94 History of ischemic left MCA stroke Z86.73 History of diabetes mellitus Z86.39 History of hypertension Z86.79 History of DVT (deep vein thrombosis) Z86.718 Isolation/Infection: Isolation No Isolation Nurse Assessment: Last Vital Signs: BP (!) 146/86 Pulse 112 Temp 98.9 F (37.2 C) (Oral) Resp 16 Ht 6' (1.829 m) Wt 220 lb (99.8 kg) SpO2 97% BMI 29.84 kg/m Last documented pain score (0-10 scale): Pain Level: 0 Last Weight: Wt Readings from Last 1 Encounters: 06/05/19 220 lb (99.8 kg) Mental Status: {IP PT MENTAL STATUS:} IV Access: { JOSIE IV ACCESS:696841861} Nursing Mobility/ADLs: Walking {CHP DME ADLs:245819312} Transfer {CHP DME ADLs:631555348} Bathing {CHP DME ADLs:213586441} Dressing {CHP DME ADLs:213889030} Toileting {CHP DME ADLs:902509043} Feeding {CHP DME ADLs:282228281} Welder Apprentice Arc {CHP DME ADLs:733022762} Med Delivery { JOSIE MED Delivery:877199897} Wound Care Documentation and Therapy: Elimination: Continence: Bowel: {YES / NO:} Bladder: {YES / NO:} Urinary Catheter: {Urinary Catheter:311509497} Colostomy/Ileostomy/Ileal Conduit: {YES / NO:} Date of Last BM: Intake/Output Summary (Last 24 hours) at 06/08/2019 1738 Last data filed at 06/08/2019 1600 Gross per 24 hour Intake Output 950 ml Net -950 ml I/O last 3 completed shifts: In: - Out: 950 [Urine:950] Safety Concerns: { JOSIE Safety Concerns:591971054} Impairments/Disabilities: {[facility] Impairments/Disabilities:569809883} Nutrition Therapy: Current Nutrition Therapy: { JOSIE Diet List:144518739} Routes of Feeding: {P DME Other Feedings:957730974} Liquids: {Ornamenter liquid thickness:63340} Daily Fluid Restriction: {CHP DME Yes amt example:248813436} Last Modified Barium Swallow with Video (Video Swallowing Test): {Done Not Done Date:} Treatments at the Time of Hospital Discharge: Respiratory Treatments: Oxygen Therapy: {Therapy; copd oxygen:13874} Ventilator: { CC Vent List:701106286} Rehab Therapies: {THERAPEUTIC INTERVENTION:9230676308} Weight Bearing Status/Restrictions: { CC Weight Bearin} Other Medical Equipment (for information only, NOT a DME order): {EQUIPMENT:701095794} Other Treatments: Patient's personal belongings (please select all that are sent with patient): {CHP DME Belongings:435046692} RN SIGNATURE: {Esignature:845526634} CASE MANAGEMENT/SOCIAL WORK SECTION Inpatient Status Date: 06/05/2019 Readmission Risk Assessment Score: Readmission Risk Risk of Unplanned Readmission: 13 Discharging to Facility/ Agency [facility]: [facility] Address: Fax: Dialysis Facility (if applicable) Name: Address: Dialysis Schedule: Phone: Fax: Proof Technician Helper/Optometric Aide signature: at2:35 PM PHYSICIAN SECTION Prognosis: Good Condition at Discharge: Stable Rehab Potential (if transferring to Rehab): Good Recommended Labs or Other Treatments After Discharge: Diabetic Control Physician Certification: I certify the above information and transfer of Eunice Marte is necessary for the continuing treatment of the diagnosis listed and that he requires Home Care for less 30 days. Update Admission H&P: No change in H&P PHYSICIAN SIGNATURE: * Additional Instructions* Vipin Reddy MD - 06/09/2019 1.) Based on current admission and information will continue Aspirin 81mg PO D and Clopidogrel 75mgPO D 2.) Need evaluation by Primary in 1 week for Warfarin therapy. If primary wants warfarin will recommend keeping Aspirin with warfarin and discontinuing Clopidogrel. Avoid Aspirin, Clopidogrel and Warfarin together. 3.) Evaluation by primary for Blood Pressure control and Glucose control Follow up with General Neurology in 4-6 weeks documented in this encounter History of Present Illness * Nadia Toledo - 06/09/2019 2:21 PM EDT CLINICAL PHARMACY NOTE: MEDS TO [facility] Select Patient?: No Total # of Prescriptions Filled: 5 The following medications were delivered to the patient: Folic acid 1mg Clopidogrel 75mg Metoprolol tartrate 25mg Atorvastatin 80mg tamsulosin 0.4mg Total # of Interventions Completed: 0 Time Spent (min): 5 Additional Documentation: meds delivered to patients 06-09-19 at 2:08pm * Iesla Hernandez RN - 06/09/2019 12:34 AM EDT 0034: Pt transported to room 538. All belongings packed and sent. Report called to [employer]. * Kosta Macedo PTA - 06/08/2019 2:39 PM EDT Physical Therapy Facility/Department: [address] Daily Treatment Note NAME: Eunice Marte : 1955 Date of Service: 06/08/2019 Discharge Recommendations: No further therapy required at discharge. PT Equipment Recommendations Equipment Needed: No Assessment Body structures, Functions, Activity limitations: Decreased functional mobility ;Decreased endurance;Decreased balance Assessment: Pt ambulated 600+ ft without AD and CGA; Pt Asc/Dsc 1 flight of stairs using 1 rail forsupport with his R hand; Pt completes bed mobility and transfers independently; Pt eager to be D/C,pt wants to go home and reported that he has no safety concerns and no questions for PT staff Prognosis: Good PT Education: Goals;PT Role;Plan of Care;General Safety REQUIRES PT FOLLOW UP: No Activity Tolerance Activity Tolerance: Patient Tolerated treatment well Patient Diagnosis(es): The encounter diagnosis was Cerebrovascular accident (CVA), unspecified mechanism (HCC). has a past medical history of CVA (cerebral vascular accident) (HCC), Diabetes mellitus type 2, uncontrolled (HCC), and HTN (hypertension). has no past surgical history on file. Restrictions Restrictions/Precautions Restrictions/Precautions: General Precautions Required Braces or Orthoses?: No Position Activity Restriction Other position/activity restrictions: up with A, SBP goal <180 Subjective General Chart Reviewed: Yes Response To Previous Treatment: Not applicable Family / Caregiver Present: No Subjective Subjective: RN and pt agreeable to PT. Pt supine in bed upon arrival, pleasant and cooperative throughout. Pt eager to be D/C, pt wants to go home and reported that he has no safety concerns and no questions for PT staff Pain Screening Patient Currently in Pain: Denies Vital Signs Patient Currently in Pain: Denies Orientation Within Functional Limits Objective Bed mobility Rolling to Left: Independent Rolling to Right: Independent Supine to Sit: Independent Sit to Supine: Independent Scooting: Independent Transfers Sit to Stand: Independent Stand to sit: Independent Bed to Chair: Independent Ambulation Ambulation?: Yes Ambulation 1 Surface: level tile Device: No Device Assistance: Independent Quality of Gait: decreased romi, but no LOB Gait Deviations: Slow Romi Distance: 600+ feet Stairs/Curb Stairs?: Yes Stairs # Steps : 12 Stairs Height: 6 Rails: (Right side rail Asc/Dsc) Device: No Device Assistance: Contact guard assistance Comment: reciprocal ascending and non-reciprocal descending- pt has reported that non-reciprocal isbaseline from prior LLE surgery Balance Posture: Good Sitting - Static: Good Sitting - Dynamic: Good Standing - Static: Good Standing - Dynamic: Good Comments: standing balance assessed without AD Goals Short term goals Time Frame for Short term goals: 14 visits Short term goal 1: Perform bed mobility and functional transfers independently Short term goal 2: Ambulate 600ft independently Short term goal 3: Demo Good dynamic standing balance to decrease risk of falls Short term goal 4: Ascend/descend 4 steps with HR and SBA Plan Plan Times per week: 5x/wk Current Treatment Recommendations: Strengthening, Balance Training, Functional Mobility Training, Transfer Training, Endurance Training, Patient/Caregiver Education & Training, Safety Education & Training, Home Exercise Program, Gait Training, ROM, Stair training, Neuromuscular Re-education Safety Devices Type of devices: Left in bed, Gait belt, Call light within reach, Nurse notified Restraints Initially in place: No Therapy Time Individual Concurrent Group Co-treatment Time In 1439 Time Out 1505 Minutes 26 Kosta Macedo PTA * Lucrecia Cade RN - 06/08/2019 1:12 PM EDT Inpatient Diabetes Education Type and Reason for Visit: Patient Education Patient seen at bedside / ICU. He stated a history of diabetes and at home use of insulin and pillsto help control.His helps him with medication - she gives him insulin daily. He does his own meal prep and has not worked with RD in past/ does not follow a meal plan and does drink regular pop and eats fast food. He has home BG meter and checks BG few times per day. He stated BG at home not that high Although his A1c is elevated: Lab Results Component Value Date LABA1C 12.3 (H) 06/06/2019 Verbally reviewed following information with patient Survival skills Diagnosis, A1C, Blood glucose targets, importance of home blood glucose monitoring,heathy eating plate method for CHO control portions, be active as recommended by health care providers, take medications oral and or insulin as directed Written educational materials provided _x__ Educational Booklets as available ADA Where Do I Begin? Living with Type 2 Diabetes _x__ Be safe with [place] teaching sheet / [facility] Disposal of Household Generated Sharps _x__ Type 2 Diabetes and Adding Insulin fold out with survival skills Contact number provided. Patient stated willing to follow up for outpatient DMED / work with RD forbetter meal planing. Refer to Patient Education activity for more details. LUCRECIA CADE RN CDE * Keysha Urena SLP - 06/08/2019 11:58 AM EDT Speech Language Pathology Speech Language Pathology [facility] Cognitive Treatment Note Date: 06/08/2019 Patient s Name: Eunice Marte Diagnosis: Patient Active Problem List Diagnosis Code Cerebrovascular accident (CVA) ([facility]) I63.9 Acute left hemiparesis ([facility]) G81.94 History of ischemic left MCA stroke Z86.73 History of diabetes mellitus Z86.39 History of hypertension Z86.79 History of DVT (deep vein thrombosis) Z86.718 Pain: 0/10 Cognitive Treatment Treatment time: 10:55- 11:19 Subjective: [x] Alert [x] Cooperative [] Confused [] Agitated [] Lethargic Objective/Assessment: Recall: Delayed recall (chaining word lists: first trial): 0/3 (0%) independently increased to 1/3 (33%) with max verbal cues. Delayed recall (chaining word lists: second trial): 1/3 (33%) independently, increased to 2/3 (66%) with max verbal cues. Immediate recall (3 units): Pt stated 5/5 (100%) independently. Imediate recall (3 units: reverse order): Pt stated 0/5 (0%) independently, increased to 3/5 (60%) with repetition, and max verbal/ gestural cues. Problem Solving/Reasoning: Add to the category (concrete): Pt stated 3/10 (30%) independently, increased to 9/10 (90%) with mod-max verbal cues. Pt repeated words in the category multiple times before responding. Determining category exclusions: Pt stated 6/10 (60%) independently, increased to 10/10 (100%) withmod verbal cues. State the Category ([place]): Pt stated 1/10 (10%) independently, increased to 7/10 (70%) with maxverbal cues. Other: Divergent naming: Pt named 11/12 (92%) independently, increased to 12/12 (100%) with min verbal cues. O/M exercises for dysarthria were completed. Pt completed 15 reps x [address] discussed importance of exercises and left exercises at beside. Plan: [x] Continue ST services [] Discharge from ST: Discharge recommendations: [x] Other: Further therapy recommended at discharge. Treatment completed by: Completed by: Erin Andrews, Computer Equipment Repairer Clinician Cosigned By: Keysha Urena M.S.CCC/ADOPTION COORDINATOR * Kosta Macedo PTA - 06/08/2019 10:31 AM EDT DATE: 06/08/2019 NAME: Eunice Marte : 1955 Patient not seen this date for Physical Therapy due to: [] Blood transfusion in progress [] Hemodialysis [] Patient Declined [] Spine Precautions [] Strict Bedrest [x] Surgery/ Procedure VL DUP LOWER EXTREMITY VENOUS BILATERAL (Order #[id number]) on 06/08/19 [] Testing [] Other [] PT being discontinued at this time. Patient independent. No further needs. [] PT being discontinued at this time as the patient has been transferred to palliative care. No further needs. Kosta Macedo PTA * Bianka Oviedo RCP - 06/08/2019 7:36 AM EDT Smoking Cessation - topics covered [] Health Risks [] Benefits of Quitting [] Smoking Cessation [x] Patient has no history of tobacco use [] Patient is former smoker. [x] No need for tobacco cessation education. [] Booklet given [] Patient verbalizes understanding. [] Patient denies need for tobacco cessation education. [] Unable to meet with patient today. Will follow up as able. BIANKA OVIEDO 7:36 AM * Vipin Reddy MD - 06/08/2019 6:04 AM EDT Daily Progress Note Neuro Critical Care Patient Name: Eunice Marte Patient : 1955 Room/Bed: [address] [place] [address] CHIEF COMPLAINT: Complaining of left facial droop, left-sided hemiparesis, slurred speech INTERVAL HISTORY: Admission (06/05/2019) Case of a 63 y.o. male patient with PMH of HTN, Diabetes, Stroke (4 years ago) who came to ED at [facility] after having a presentation of acute onset of left- sided weakness that began around 5 PM on June 05, 2019. Patient refers that he was around his house around that area he was feeling weak but then noticed that he was slurring the speech, have a left-sided facial droop, left- sided hemiparesis. At the [facility] NIH was calculated at 8 and decision was to give TPA. Patient was life flighted to [place] and was given hydralazine to control his blood pressure so TPA can be given. Received TPA at 9:08PM. Symptoms are referred to have improved overnight after TPA. Patient mentioned that 4 years ago he had a stroke that presented the same time. CT head was negative for hemorrhage or hypodensity but it did show previous bilateral caudate strokes most likely related to hypertension in the left occipital stroke which shape that could represent cardio embolic process, CTA head and neck was negative for LVO. 06/06 Patient was evaluated at bedside and found alert and oriented x3, no acute distress, more improvement of his symptoms. She will have today stroke work-up HbA1c, LDL, echo, brain MRI. Patient is unsure of his medication regimen, pharmacy preferred that his current medication that was put on the system were the ones that he took last time in January. is not at bedside and is the one who knows more about his conditions and there is some question about his warfarin intake and a previous dosage ofKeppra. He was asked in the morning about having to take any anticholesterol he referred no but on his med list says that he takes warfarin. INR was 1.2. At 9 PM tonight will be his 24-hour post TPA head CT. 06/07 Overnight patient had a head CT scan without contrast and was unremarkable for any hemorrhagic transformation. Placed on dual antiplatelet. Patient also will have MRI brain without contrast today. SONNY will be done today. Upon calling office of patient's primary Dr. Dalton was found that on May 18, 2018 a DVT was found on her right arm and left leg. Patient was placed on Xarelto at that time for 6 months. Evaluation for hypercoagulable was done and on doctor's note it appears that the patient waspositive. On October 17, 2017 he was switched to warfarin's 5 mg p.o. daily and also has a standing prescription of 5 refills. Last visit to the PCPs office was on March 16, 2019. In PCPs office medical history reviewed there is no history of atrial fibrillation or any valvular disease Today Patient was evaluated at bedside and found alert and oriented x3, afebrile. Patient had MRI brain done yesterday that showed right periventricular ischemia and transesophageal echo was done and foundto have an EF of 40% but no thrombus or any other vegetations. Loop recorder placed. We will have bilateral upper extremity Dopplers done today. Patient had a history of upper and lower extremity DVTs and primary put him on Xarelto and then warfarin. Will evaluate if the patient will continue on dual antiplatelet or will have warfarin. PT, OT, speech and PMR on case for discharge planning. is currently at work has been difficult to call her to find out more information but she will be here after 4 PM I will have information from what was the last time patient took warfarin. CURRENT MEDICATIONS: SCHEDULED MEDICATIONS: fentanNYL 100 mcg Intravenous Once midazolam 2 mg Intravenous Once insulin glargine 20 Units Subcutaneous Daily enoxaparin 40 mg Subcutaneous Daily sodium chloride flush 10 mL Intravenous 2 times per day sodium chloride flush 10 mL Intravenous 2 times per day atorvastatin 80 mg Oral Nightly docusate sodium 100 mg Oral BID insulin lispro 0-18 Units Subcutaneous TID WC insulin lispro 0-9 Units Subcutaneous Nightly lisinopril-hydrochlorothiazide 1 tablet Oral BID aspirin 81 mg Oral Daily sodium chloride flush 10 mL Intravenous 2 times per day VITALS: Temperature Range: Temp: 98.4 F (36.9 C) Temp Av.1 F (36.7 C) Min: 97.7 F (36.5 C) Max: 98.5 F(36.9 C) BP Range: Systolic (24hrs), Av , Min:100 , Max:178 Diastolic (24hrs), Av, Min:71, Max:104 Pulse Range: Pulse Av.5 Min: 83 Max: 99 Respiration Range: Resp Av.8 Min: 12 Max: 19 Current Pulse Ox: SpO2: 96 % 24HR Pulse Ox Range: SpO2 Av.6 % Min: 93 % Max: 96 % Patient Vitals for the past 12 hrs: BP Temp Pulse Resp SpO2 06/08/19 0402 124/74 98.4 F (36.9 C) 92 16 96 % 06/08/19 0003 100/71 98.3 F (36.8 C) 96 16 06/07/192001 (!) 157/85 98 F (36.7 C) 99 19 Estimated body mass index is 29.84 kg/m as calculated from the following: Height as of this encounter: 6' (1.829 m). Weight as of this encounter: 220 lb (99.8 kg). []<16 Severe malnutrition []16 16.99 Moderate malnutrition []17 18.49 Mild malnutrition []18.5 24.9 Normal [x]25 29.9 Overweight (not obese) []30 34.9 Obese class 1 (Low Risk) []35 39.9 Obese class 2 (Moderate Risk) []?40 Obese class 3 (High Risk) RECENT LABS: DATA CBC: Recent Labs 06/06/19 0901 06/07/19 0426 06/08/19 0041 WBC 7.3 7.4 7.1 HGB 16.4 16.7 16.8 HCT 49.9 51.5* 50.9* PLT 221 196 285 BMP: Recent Labs 06/06/19 0901 06/07/19 0426 06/08/19 0041 NA 137 135 134* K 3.9 3.4* 3.3* CL 101 97* 96* CO2 20 26 24 BUN 5* 8 11 CREATININE 0.48* 0.76 0.79 GLUCOSE 264* 232* 225* MG 2.0 1.9 2.0 Lab Results Component Value Date CHOL 294 (H) 06/06/2019 LDLCHOLESTEROL 216 (H) 06/06/2019 HDL 38 (L) 06/06/2019 TRIG 200 (H) 06/06/2019 INR 1.2 06/05/2019 LABA1C 12.3 (H) 06/06/2019 24 HOUR INTAKE/OUTPUT: Intake/Output Summary (Last 24 hours) at 06/08/2019 0604 Last data filed at 06/07/2019 1853 Gross per 24 hour Intake Output 1250 ml Net -1250 ml RADIOLOGY/IMAGING: Labs and Images reviewed with: [x] Omer Zambrano MD [] Oscar Harp MD [] Paco Lynch MD [] Greg Lopez MD --[] there are no new interval images to review. 1. Head CT WO Impression No acute intracranial abnormality. 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 Pansinusitis. RECOMMENDATIONS: The findings were sent to the Radiology Results Communication Center at 10:13 pm on 06/05/2019to be communicated to a licensed caregiver. Discussed with Dr. Son at 10:14 p.m.. 2. CTA H/N Impression Multiple tandem stenoses right posterior cerebral artery. Otherwise negative CTA of the head and neck. RECOMMENDATIONS: The findings were sent to the Radiology Results Communication Center at 10:48 pm on 06/05/2019to be communicated to a licensed caregiver. Case discussed with Dr. Son at 10:50 p.m.. 3. Repeated Head CT (after tPA) Impression 1. No evidence of an acute evolving infarct. 2. No acute intracranial hemorrhage or global mass effect. 3. Redemonstration of multifocal remote infarcts. 4. Brain MRI WO Impression 1. Small area of restricted diffusion within right periventricular white matter and right basal ganglia, most compatible with acute infarcts. 2. Encephalomalacia and gliosis within left parietal lobe with hemosiderin deposits. This is most likely sequela of chronic infarct. 3. Chronic lacunar infarcts within bilateral basal ganglia. Chronic small vessel ischemic white matter disease and diffuse cerebral volume loss. 4. Extensive paranasal sinus disease, as detailed above. Correlate with symptoms of sinusitis. 5. Nonspecific bilateral mastoid opacification. Small amount of fluid within the left petrous apex. Correlate with symptoms of mastoiditis. The findings were sent to the Radiology Results Communication Center at 11:16 am on 06/07/2019to be communicated to a licensed caregiver. 5. SONNY Summary: 1. A SONNY was performed without complications. 2. LVEF 40 % 3. No thrombus or valvular vegetation identified 4. There were no complications encountered. Cardiovascular Diseases [facility] CONSTITUTIONAL: negative for fatigue and malaise EYES: negative for double vision and photophobia HEENT: negative for tinnitus and sore throat RESPIRATORY: negative for cough, shortness of breath CARDIOVASCULAR: negative for chest pain, palpitations, or syncope GASTROINTESTINAL: negative for abdominal pain, nausea, vomiting, diarrhea, or constipation GENITOURINARY: negative for incontinence or retention MUSCULOSKELETAL: negative for neck or back pain, negative for extremity pain NEUROLOGICAL: Negative for seizures, headaches, confusion, aphasia Positive for left-sided weakness, numbness, left facial droop, mild dysarthria PSYCHIATRIC: negative for agitation, hallucination, SI/HI SKIN Negative for spontaneous contusions, rashes, or lesions PHYSICAL EXAM: GENERAL Appears comfortable and in no distress HEENT NC/ AT HEART S1 and S2 heard; palpation of pulses: radial pulse NECK Supple and no bruits heard MENTAL STATUS: Alert, oriented, intact memory, no confusion, normal language, no hallucination or delusion Positive for mild dysarthria CRANIAL NERVES: II - Visual hernandes intact to confrontation III,IV, - PERR, EOMs full, no ptosis V - Normal facial sensation VII - left facial droop VIII - Intact hearing IX,X - Symmetrical palate XI - Symmetrical shoulder shrug XII - Midline tongue, no atrophy MOTOR FUNCTION: RUE: Significant for good strength of grade 5/5 in proximal and distal muscle groups LUE: Significant for good strength of grade 4+/5 in proximal and distal muscle groups RLE: Significant for good strength of grade 5/5 in proximal and distal muscle groups LLE: Significant for good strength of grade 4+/5 in proximal and distal muscle groups Normal bulk, normal tone and no involuntary movements, no tremor SENSORY FUNCTION: Normal touch, normal pin, normal vibration, normal proprioception except left face the V2 V3 mild numbness and distal paresthesias in upper and lower extremity due to diabetes neuropathy CEREBELLAR FUNCTION: Intact fine motor control over upper limbs and lower limbs REFLEX FUNCTION: Symmetric in upper and lower extremities, no Babinski sign STATION and GAIT deferred but OT and PT will work with patient VENTILATOR [x] No ventilator in this patient [] Ventilator: Settings Mode Tidal Volume RR PEEP O2% DRAINS: [x] There are no drains for Neuro Critical Care to monitor at this time. [] Drain monitored by NICU [] Drain monitored by NSG PLAN / MEDICAL DECISION MAKING: This is a 63 y.o. male with an onset of dysarthria, left facial droop, left- sided hemiparesis. Received TPA. Brain MRI without contrast showed right periventricular ischemic stroke. HbA1c showed 12 and LDL 216. SONNY was unremarkable for any thrombus or vegetation and loop recorder was placed. NEUROLOGIC: GCS 15/[address] negative for hemorrhage and hypodensity. Positive for previous bilateral carotid stroke most likely hypertensive and left occipital stroke wedge-shaped most likely cardio embolic CT head and neck was negative for LVO Repeat a head CT after 24 hours showed no hemorrhagic conversion By without contrast showed right periventricular ischemic stroke Patient currently on dual antiplatelet but due to history of being on warfarin for right upper extremity and left lower extremity and according to PCPs notes possible hypercoagulability panel being positive we will see if patient will be switched to warfarin again. His INR was 1.2 when he came CARDIOVASCULAR: SBP Goal < 140 No issues overnight with heart rate or blood pressure Patient will be started on his home dose blood pressure medication to start weaning off Cleviprex. PRN ordered SONNY showed EF 40% and no thrombus no vegetation Dual antiplatelet at the moment but will consider warfarin due to patient being on warfarin before a.m. suspected hypercoagulability panel but is not on the EMR but on the patient's PCP office papers Telemetry PULMONARY: Chest x-ray unremarkable Wean off oxygen during nday RENAL/FLUID/ELECTROLYTE: Sodium 134 Potassium 3.3 -currently being replaced BUN 11 Creatinine 0.79 GI/NUTRITION: NUTRITION: DIET CARDIAC; Carb Control: 4 carb choices (60 gms)/meal ID: T-max 36.9 No fevers White blood cells 7.1 No antibiotics for the moment HEMATOLOGIC: Hgb: 16.8 Hct: 50.9 Plt: 285 No complications with TPA at the moment System and by pharmacy patient is supposed to be on warfarin. Patient unsure why he is on warfarin if it is for any DVT, PE or any heart arrhythmia. PCPs office refer he was on Eliquis first for 6 months since April 2018 due to DVT from the right arm and left leg and placed on warfarin 5 p.o. daily due to hypercoagulability panel being positive. Unsure when was his last dose of warfarin Follow up bilateral lower extremity Dopplers ENDOCRINE: HbA1c came back and was 12.3. It shows patient is not compliant with medication or has not been following with primary to evaluate his diabetes status Currently on high insulin scale OTHER: PT, OT, speech PMR Endovascular neurosurgery PROPHYLAXIS: Stress ulcer: None Anticoagulation: Prophylaxis [] Heparin 5000 Subcutaneous Q8 [x] Lovenox 40mg Subcutaneous D [] Lovenox 30mg Suncutaneous D [] Compression Stockings Full Treatment [] Heparin Drip [] Lovenox 1mg/Kg Subcutaneous BID [] Lovenox 1mg/Kg Subcutaneous D [] NOAC [] Warfarin [] No chemical anticoagulation DISPOSITION: [] To remain ICU [x] OK for out of ICU from Neuro Critical Care standpoint We will continue to follow along. For any changes in exam or patient status please contact Neuro Critical Care Team Vipin Morales MD Neurology Resident PGY-3 Neuro Critical Care Pager [phone] 06/08/2019 6:04 AM Associated attestation - Omer Zambrano MD - 06/08/2019 2:42 PM EDT Neuro critical care: SONNY negative Get DVT scan with hx of DVTs in past, patient reports he is not on OAC for last few months Lovenox sc [facility] & statins continued Step down status Diabetes education for Insulin requirement PM & R evaluation M Sudheer Zambrano MD * Nadia Felipe RN - 06/07/2019 4:55 PM EDT Pt arrived back to room, hooked up to monitor and vital signs taken. Pt sleepy, but easy to arouse.[employer] Offset Press Operator called to let her know procedure was done. 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/ Procedure--clinical genetics laboratory chief this afternoon [] Testing [] Other [] PT being discontinued at this time. Patient independent. No further needs. [] PT being discontinued at this time as the patient has been transferred to palliative care. No further needs. SHERRILL IVAN PTA * Tracey Rahman RN - 06/07/2019 1:53 PM EDT Patient arrived from in-house bed, consent signed, all questions answered. Pt ready for procedure. Call light to reach with side rails up 2 of 2. Lt mid and upper chest clipped. No one at bedside with patient. Prep completed to upper & mid chest area with 2% Chlorhexidine Gluconate * Frances Schulz, KAMALA - 06/07/2019 11:43 AM EDT Speech Language Pathology Speech Language Pathology [facility] Speech / Cognitive Treatment Note Date: 06/07/2019 Patient s Name: Eunice Marte Diagnosis: Patient Active Problem List Diagnosis Code Cerebrovascular accident (CVA) ([facility]) I63.9 Acute left hemiparesis ([facility]) G81.94 History of ischemic left MCA stroke Z86.73 History of diabetes mellitus Z86.39 History of hypertension Z86.79 Pain: denies Cognitive Treatment Treatment time: [id number] Subjective: [] Alert [] Cooperative [] Confused [] Agitated [] Lethargic Objective/Assessment: Attention: maintained throughout; distractions minimized. Recall: Pt provided written list of memory compensatory strategies and instructed to review. Pt provided specific, significant education re: function & spatial associations compensatory strategy & pt verbalized understanding. Immediate Picture Recall, 4 Units: Pt utilized spatial association strategy to encode 4 presented pictures with mod verbal cues & model. Pt recalled 4/4 pictures independently, immediately. Delayed Picture Recall, 4 Units: Pt recalled 4/4 pictures with 10 and 20 minute delays independently Memory & Mental Manipulation, 3 Words, Word Order: Pt verbally presented 3 words out of order, and instructed to place in order. Pt completed task with 20% (1/5) accuracy independently, increasedto 100% (5/5) accuracy with max verbal cues & x2 verbal repetitions. Organization: State the Category, [place]: Pt provided three items and instructed to state the category. Pt completed activity with 60% (3/5) accuracy independently, increased to 100% (5/5) with mod-max verbal cues and 1-2x verbal repetitions. Add to the Category, [place]: Pt instructed to name three additional items in each identified concrete category. Pt named three additional items in 4/5 presented categories independently, increased to 5/5 with mod-max verbal & visual cues. Pt required increased processing time to complete thisactivity. Determining Category Exclusions: Pt verbally presented list of 4 words, one of which was ill-fitting with the other words. Pt identified ill-fitting word with 50% (5/10) accuracy independently, increased to 80% (8/10) with 1-2x verbal repetitions, increased to 100% (10/10) with mod-max verbal cues and 2x verbal repetitions. Problem Solving/Reasoning: Stating Logical Conclusions: Pt provided situation, and instructed to provide a solution. Pt provided a solution with 100% (5/5) accuracy independently. Speech: Pt seen for O/M exercise program for dysarthria. Pt completed exercises 10x 2 sets with min-mod verbal and visual cues. Pt provided written list of exercises at bedside, and instructed to complete 2x daily. Pt provided education re: purpose & importance of exercises & pt verbalized understanding. Pt continues to present with +R facial weakness. Other: Pt required multiple repetitions and increased processing time throughout the session. Confounding factor is loud NICU environment, which may have impacted his attention, concentration, and processing time. ST to continue to follow. Plan: [x] Continue ST services [] Discharge from ST Discharge recommendations: Further therapy recommended at discharge.The patient should be able to tolerate at least three hours of therapy per day over 5 days or 15 hours over 7 days. Treatment completed by: Frances Schulz M.S. CCC-ADOPTION COORDINATOR * Spike Worthy, DO - 06/07/2019 8:02 AM EDT Daily Progress Note Neuro Critical Care Patient Name: Eunice Marte Patient : 1955 Room/Bed: [id number]- CHIEF COMPLAINT: Complaining of left facial droop, left-sided hemiparesis, slurred speech INTERVAL HISTORY: Admission (06/05/2019) Case of a 63 y.o. male patient with PMH of HTN, Diabetes, Stroke (4 years ago) who came to ED at [facility] after having a presentation of acute onset of left- sided weakness that began around 5 PM on June 05, 2019. Patient refers that he was around his house around that area he was feeling weak but then noticed that he was slurring the speech, have a left-sided facial droop, left- sided hemiparesis. At the [facility] NIH was calculated at 8 and decision was to give TPA. Patient was life flighted to [place] and was given hydralazine to control his blood pressure so TPA can be given. Received TPA at 9:08PM. Symptoms are referred to have improved overnight after TPA. Patient mentioned that 4 years ago he had a stroke that presented the same time. CT head was negative for hemorrhage or hypodensity but it did show previous bilateral caudate strokes most likely related to hypertension in the left occipital stroke which shape that could represent cardio embolic process, CTA head and neck was negative for LVO. 06/06 Patient was evaluated at bedside and found alert and oriented x3, no acute distress, more improvement of his symptoms. She will have today stroke work-up HbA1c, LDL, echo, brain MRI. Patient is unsure of his medication regimen, pharmacy preferred that his current medication that was put on the system were the ones that he took last time in January. is not at bedside and is the one who knows more about his conditions and there is some question about his warfarin intake and a previous dosage ofKeppra. He was asked in the morning about having to take any anticholesterol he referred no but on his med list says that he takes warfarin. INR was 1.2. At 9 PM tonight will be his 24-hour post TPA head CT. Last 24 hours: No acute events overnight. Patient having improvement of neurological symptoms and no longer have dysarthria or left-sided weakness. Repeat CT head stable and negative. No family at bedside, patient still unsure why he is taking Coumadin at home. Patient did require supplemental oxygen overnight deepali does have sleep apnea. SONNY still pending. CURRENT MEDICATIONS: SCHEDULED MEDICATIONS: sodium chloride flush 10 mL Intravenous 2 times per day atorvastatin 80 mg Oral Nightly docusate sodium 100 mg Oral BID insulin lispro 0-18 Units Subcutaneous TID WC insulin lispro 0-9 Units Subcutaneous Nightly lisinopril-hydrochlorothiazide 1 tablet Oral BID aspirin 81 mg Oral Daily sodium chloride flush 10 mL Intravenous 2 times per day VITALS: Temperature Range: Temp: 98.6 F (37 C) Temp Av.8 F (37.1 C) Min: 98.4 F (36.9 C) Max: 99.2 F (37.3 C) BP Range: Systolic (24hrs), Av , Min:118 , Max:217 Diastolic (24hrs), Av, Min:54, Max:142 Pulse Range: Pulse Av.6 Min: 84 Max: 118 Respiration Range: Resp Av.8 Min: 14 Max: 24 Current Pulse Ox: SpO2: 94 % 24HR Pulse Ox Range: SpO2 Av.2 % Min: 83 % Max: 98 % Patient Vitals for the past 12 hrs: BP Temp Temp src Pulse Resp SpO2 06/07/19 0623 (!) 140/98 95 16 94 % 06/07/19 0505 118/64 84 14 95 % 06/07/19 0405 128/77 98.6 F (37 C) Oral 91 15 93 % 06/07/19 0335 (!) 142/76 84 14 94 % 06/07/19 0320 120/72 87 14 93 % 06/07/19 0304 (!) 149/84 88 16 98 % 06/07/19 0249 (!) 145/92 89 17 97 % 06/07/19 0235 120/74 96 17 97 % 06/07/19 0220 136/87 94 15 94 % 06/07/19 0205 137/71 95 17 95 % 06/07/19 0148 124/72 96 16 91 % 06/07/19 0135 (!) 148/76 88 14 95 % 06/07/19 0119 (!) 168/81 90 14 93 % 06/07/19 0104 137/84 94 15 94 % 06/07/19 0050 139/87 97 15 96 % 06/07/19 0035 (!) 145/84 91 15 96 % 06/07/19 0020 135/85 91 15 95 % 06/07/19 0004 (!) 141/81 92 15 97 % 06/06/19 2349 (!) 160/88 97 21 96 % 06/06/19 2333 (!) 122/55 91 17 (!) 86 % 06/06/19 2303 (!) 140/54 97 18 (!) 83 % 06/06/19 2248 (!) 168/84 103 20 (!) 88 % 06/06/19 2233 (!) 151/72 99 19 (!) 89 % 06/06/19 2218 (!) 155/79 98 20 91 % 06/06/19 2203 (!) 167/89 99 21 92 % 06/06/19 2148 (!) 139/54 102 24 91 % 06/06/19 2133 (!) 159/79 100 22 (!) 89 % 06/06/19 2118 (!) 168/84 101 18 (!) 89 % 06/06/192047 (!) 173/78 105 20 (!) 89 % 06/06/192032 (!) 168/142 110 18 (!) 89 % 06/06/192017 (!) 172/83 103 19 92 % 06/06/192002 (!) 171/87 98.4 F (36.9 C) Oral 116 22 94 % Estimated body mass index is 29.84 kg/m as calculated from the following: Height as of this encounter: 6' (1.829 m). Weight as of this encounter: 220 lb (99.8 kg). []<16 Severe malnutrition []16 16.99 Moderate malnutrition []17 18.49 Mild malnutrition []18.5 24.9 Normal [x]25 29.9 Overweight (not obese) []30 34.9 Obese class 1 (Low Risk) []35 39.9 Obese class 2 (Moderate Risk) []?40 Obese class 3 (High Risk) RECENT LABS: DATA CBC: Recent Labs 06/05/19205306/06/1990006/07/19 0426 WBC 8.0 7.3 7.4 HGB 15.6 16.4 16.7 HCT 47.2 49.9 51.5* PLT 201 221 196 BMP: Recent Labs 06/05/19205306/06/19 0032 06/06/1990006/07/19 0426 NA 135 -- 137 135 K 4.1 -- 3.9 3.4* CL 98 -- 101 97* CO2 25 -- 20 26 BUN 8 -- 5* 8 CREATININE 0.83 -- 0.48* 0.76 GLUCOSE 353* 211 264* 232* MG -- -- 2.0 1.9 Lab Results Component Value Date CHOL 294 (H) 06/06/2019 LDLCHOLESTEROL 216 (H) 06/06/2019 HDL 38 (L) 06/06/2019 TRIG 200 (H) 06/06/2019 INR 1.2 06/05/2019 LABA1C 12.3 (H) 06/06/2019 24 HOUR INTAKE/OUTPUT: Intake/Output Summary (Last 24 hours) at 06/07/2019 0802 Last data filed at 06/07/2019 0622 Gross per 24 hour Intake Output 700 ml Net -700 ml RADIOLOGY/IMAGING: Labs and Images reviewed with: [x] Omer Zambrano MD [] Oscar Harp MD [] Paco Lynch MD [] Greg Lopez MD --[] there are no new interval images to review. 1. Head CT WO Impression No acute intracranial abnormality. 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 Pansinusitis. RECOMMENDATIONS: The findings were sent to the Radiology Results Communication Center at 10:13 pm on 06/05/2019to be communicated to a licensed caregiver. Discussed with Dr. Son at 10:14 p.m.. 2. CTA H/N Impression Multiple tandem stenoses right posterior cerebral artery. Otherwise negative CTA of the head and neck. RECOMMENDATIONS: The findings were sent to the Radiology Results Communication Center at 10:48 pm on 06/05/2019to be communicated to a licensed caregiver. Case discussed with Dr. Son at 10:50 p.m.. ROS: CONSTITUTIONAL: negative for fatigue and malaise EYES: negative for double vision and photophobia HEENT: negative for tinnitus and sore throat RESPIRATORY: negative for cough, shortness of breath CARDIOVASCULAR: negative for chest pain, palpitations, or syncope GASTROINTESTINAL: negative for abdominal pain, nausea, vomiting, diarrhea, or constipation GENITOURINARY: negative for incontinence or retention MUSCULOSKELETAL: negative for neck or back pain, negative for extremity pain NEUROLOGICAL: Negative for seizures, headaches, confusion, aphasia Positive for left-sided weakness, numbness, left facial droop, mild dysarthria PSYCHIATRIC: negative for agitation, hallucination, SI/HI SKIN Negative for spontaneous contusions, rashes, or lesions PHYSICAL EXAM: GENERAL Appears comfortable and in no distress HEENT NC/ AT HEART S1 and S2 heard; palpation of pulses: radial pulse NECK Supple and no bruits heard MENTAL STATUS: Alert, oriented, intact memory, no confusion, normal language, no hallucination or delusion No dysarthria CRANIAL NERVES: II - Visual hernandes intact to confrontation III,IV, - PERR, EOMs full, no ptosis V - Normal facial sensation VII - No facial droop VIII - Intact hearing IX,X - Symmetrical palate XI - Symmetrical shoulder shrug XII - Midline tongue, no atrophy MOTOR FUNCTION: RUE: Significant for good strength of grade 5/5 in proximal and distal muscle groups LUE: Significant for good strength of grade 5/5 in proximal and distal muscle groups RLE: Significant for good strength of grade 5/5 in proximal and distal muscle groups LLE: Significant for good strength of grade 5/5 in proximal and distal muscle groups Normal bulk, normal tone and no involuntary movements, no tremor SENSORY FUNCTION: Normal touch, normal pin, normal vibration, normal proprioception except left face the V2 V3 mild numbness and distal paresthesias in upper and lower extremity due to diabetes neuropathy CEREBELLAR FUNCTION: Intact fine motor control over upper limbs and lower limbs REFLEX FUNCTION: Symmetric in upper and lower extremities, no Babinski sign STATION and GAIT deferred but OT and PT will work with patient VENTILATOR [x] No ventilator in this patient [] Ventilator: Settings Mode Tidal Volume RR PEEP O2% DRAINS: [x] There are no drains for Neuro Critical Care to monitor at this time. [] Drain monitored by NICU [] Drain monitored by NSG PLAN / MEDICAL DECISION MAKING: This is a 63 y.o. male with an onset of dysarthria, left facial droop, left- sided hemiparesis. Received TPA at 9 PM yesterday. Will evaluate today with another head CT 24 hours after TPA for hemorrhagic conversion. SONNY will be done tomorrow due to head CT showing what is most likely a cardioembolicprocess in the past. Patient in pharmacy history is on warfarin but he is unsure why. Will talk with family NEUROLOGIC: GCS 15/[address] negative for hemorrhage and hypodensity. Positive for previous bilateral carotid stroke most likely hypertensive and left occipital stroke wedge-shaped most likely cardio embolic CT head and neck was negative for LVO [address] stable MRI showing small right basal ganglia acute infarct as well as evidence of chronic infarcts ASA started CARDIOVASCULAR: SBP Goal < 140 No issues overnight with heart rate or blood pressure Patient will be started on his home dose blood pressure medication, clevidipine is been weaned off Due to findings on head CT will skip transthoracic echo and will go straight to SONNY. Cardiology on board and will do it today. Also plan for loop recorder. Due to intracranial atherosclerosis seen on CTA head patient will benefit from dual antiplatelet. After head CT if no bleeding will start aspirin at least. Will evaluate with the echo if there is anyneed for anti-coagulation Plan for either dual antiplatelet therapy or aspirin plus warfarin There is an unknown story of why patient is on warfarin on system but will talk with family to havesome more input, patient believes it may be due to DVTs in the past Telemetry Lines:1 on left arm PULMONARY: Chest x-ray unremarkable Oxygen only needed at night as patient does have obstructive sleep apnea and requires CPAP at night RENAL/FLUID/ELECTROLYTE: Sodium 135 Potassium 3.4 - will replace prn BUN 8 Creatinine 0.76 GI/NUTRITION: NUTRITION: Diet NPO, After Midnight Carb Control ID: T-max 37 No fevers White blood cells 7.4 No antibiotics for the moment HEMATOLOGIC: Hgb: 16 Hct: 51 Plt: 196 No complications with TPA at the moment System and by pharmacy patient is supposed to be on warfarin. Patient unsure why he is on warfarin if it is for any DVT, PE or any heart arrhythmia ENDOCRINE: HbA1c came back and was 12.3. It shows patient is not compliant with medication or has not been following with primary to evaluate his diabetes status Currently on high insulin scale, will also start daily glargine OTHER: ? PT, OT, speech ? PMR ? Endovascular neurosurgery PROPHYLAXIS: Stress ulcer: None Anticoagulation: Prophylaxis [] Heparin 5000 Subcutaneous Q8 [x] Lovenox 40mg Subcutaneous D - Repeat CT stable [] Lovenox 30mg Suncutaneous D [x] Compression Stockings Full Treatment [] Heparin Drip [] Lovenox 1mg/Kg Subcutaneous BID [] Lovenox 1mg/Kg Subcutaneous D [] NOAC [] Warfarin [] No chemical anticoagulation at moment due to: CT stable, ASA started DISPOSITION: [x] To remain ICU [] OK for out of ICU from Neuro Critical Care standpoint We will continue to follow along. 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 CT head reviewed that shows largeold cortical wedge-shaped infarction. O2 weaned off Out of bed mobility as tolerated and continue PT, OT and ST evaluations PM & R evaluation Continue sec stroke prevention with asa and statins. Patient reports he had been on coumadin for DVT last year. Patient may benefit from dual antiplatelet therapy for intracranial stenosis if no indication of anti coagulation during this work-up. Total care time spent 45 minutes excluding procedural time * Ravinder Huang, OT - 06/06/2019 12:38 PM EDT Occupational Therapy Occupational Therapy Initial Assessment Date: 06/06/2019 Patient Name: Eunice Marte : 1955 Date of Service: 06/06/2019 Discharge Recommendations: No therapy recommended at discharge. Assessment Performance deficits / Impairments: Decreased ADL status;Decreased high-level IADLs;Decreased coordination Prognosis: Good Decision Making: Medium Complexity Patient Education: Safety awareness, OTPOC, tripping hazards in home-good return REQUIRES OT FOLLOW UP: Yes Activity Tolerance Activity Tolerance: Patient Tolerated treatment well Safety Devices Safety Devices in place: Yes Type of devices: All fall risk precautions in place;Call light within reach;Gait belt;Left in bed Restraints Initially in place: No Patient Diagnosis(es): The encounter diagnosis was Cerebrovascular accident (CVA), unspecified mechanism (HCC). has no past medical history on file. has no past surgical history on file. Restrictions Restrictions/Precautions Restrictions/Precautions: General Precautions Required Braces or Orthoses?: No Position Activity Restriction Other position/activity restrictions: up with A, SBP goal <180 Subjective General Patient assessed for rehabilitation services?: Yes Family / Caregiver Present: No Diagnosis: L weakness Patient Currently in Pain: Denies Pain Assessment Pain Assessment: 0-10 Pain Level: 0 Vital Signs Patient Currently in Pain: Denies Social/Functional History Social/Functional History Lives With: Spouse Type of Home: House Home Layout: Two level, Able to Live on Main level with bedroom/bathroom, Performs ADL's on one level Home Access: Level entry Bathroom Shower/Tub: Walk-in shower Bathroom Toilet: Standard Bathroom Accessibility: Accessible Home Equipment: Cane(Doesn't use) Receives Help From: Family ADL Assistance: Independent Homemaking Assistance: Independent Homemaking Responsibilities: Yes Ambulation Assistance: Independent Transfer Assistance: Independent Active Web Design Specialist: Yes Mode of Transportation: Car Occupation: Retired Leisure & Hobbies: watch sports Additional Comments: works out of home Objective Vision: Impaired Vision Exceptions: (Pt is supposed to wear glasses at all times, does not normally do that, pt did c/o diffculty focusing while driving at baseline) Hearing: Within functional limits Orientation Overall Orientation Status: Within Functional Limits Balance Sitting Balance: Independent Standing Balance: Modified independent Standing Balance Time: 8 min Activity: Pt stood bedside, func mob for household distances Functional Mobility Functional - Mobility Device: No device Activity: Other Assist Level: Supervision Functional Mobility Comments: Short cautious steps noted, no major LOB or safety conceerns, performed 2 steps with PT ADL Feeding: Modified independent ;Increased time to complete Grooming: Modified independent UE Bathing: Modified independent LE Bathing: Supervision UE Dressing: Modified independent LE Dressing: Supervision Toileting: Supervision Tone RUE RUE Tone: Normotonic Tone LUE LUE Tone: Normotonic Coordination Movements Are Fluid And Coordinated: No Coordination and Movement description: Left UE;Decreased accuracy;Decreased speed(Minor deficits noted in LUE, pt performed FM coordination activity for 7 min using LUE) Bed mobility Supine to Sit: Supervision Sit to Supine: Modified independent Scooting: Independent Transfers Sit to stand: Supervision Stand to sit: Modified independent Cognition Overall Cognitive Status: WFL Sensation Overall Sensation Status: WFL LUE AROM (degrees) LUE AROM : WFL RUE AROM (degrees) RUE AROM : WFL LUE Strength Gross LUE Strength: WFL L Hand General: 5/5 RUE Strength Gross RUE Strength: WFL R Hand General: 5/5 Plan Plan Times per week: 3-4x Current Treatment Recommendations: Home Management Training, Self-Care / ADL, Neuromuscular Re-education [facility] Inpatient Daily Activity Raw Score: 20 (06/06/19 1233) [facility] Inpatient ADL T-Scale Score : 42.03 (06/06/19 1233) ADL Inpatient CMS 0-100% Score: 38.32 (06/06/19 1233) ADL Inpatient CMS G-Code Modifier : CJ (06/06/191232) Goals Short term goals Time Frame for Short term goals: Pt will by discharge Short term goal 1: demo supine<>sit transfer to EOB (I) Short term goal 2: demo good safety awareness during func mob around room (I) Short term goal 3: demo FM coordination func activity using LUE for >10 min to improve ADL performance Therapy Time Individual Concurrent Group Co-treatment Time In 1055 Time Out 1130 Minutes 35 Ravinder Huang OTR/L * Nancy Aguila, PT - 06/06/2019 11:52 AM EDT Physical Therapy Facility/Department: [address] Initial Assessment NAME: Eunice Marte : 1955 Chief Complaint Patient presents with Cerebrovascular Accident The patient is a 63 y.o. male presented with acute onset of L sided weakness... He has had TIAs in the past, and states that this felt somewhat similar. He was brought to [place] ED where NIH was calculated to be 8 for L sded facial paresis, sensory deficit on L extremities, and confusion. He was too hypertensive for tPA there, but was given hydralazine life-flighted here. Here his blood pressurewas within the window and he was given tPA at 2108. His symptoms have improved since onset. Date of Service: 06/06/2019 Discharge Recommendations: Further therapy recommended at discharge for higher level balance and gait training. PT Equipment Recommendations Equipment Needed: No Assessment Body structures, Functions, Activity limitations: Decreased functional mobility ;Decreased endurance;Decreased balance Assessment: The pt ambulated 200ft without AD and CGA with mild gait deviations. The pt would benefit from continued acute PT to maximize safety and progress to prior level of independence. Prognosis: Good Decision Making: Medium Complexity PT Education: Goals;PT Role;Plan of Care;General Safety REQUIRES PT FOLLOW UP: Yes Activity Tolerance Activity Tolerance: Patient Tolerated treatment well Patient Diagnosis(es): The encounter diagnosis was Cerebrovascular accident (CVA), unspecified mechanism (HCC). has no past medical history on file. has no past surgical history on file. Restrictions Restrictions/Precautions Restrictions/Precautions: Fall Risk Required Braces or Orthoses?: No Position Activity Restriction Other position/activity restrictions: up with assist Vision/Hearing Vision: Within Functional Limits(pt reports supposed to wear glasses all the time ) Hearing: Within functional limits Subjective General Patient assessed for rehabilitation services?: Yes Response To Previous Treatment: Not applicable Family / Caregiver Present: No Follows Commands: Within Functional Limits Subjective Subjective: RN and pt agreeable to PT. Pt supine in bed upon arrival, pleasant and cooperative throughout. Pt very pleasant and cooperative throughout. Pain Screening Patient Currently in Pain: Denies Vital Signs Patient Currently in Pain: Denies Orientation Orientation Overall Orientation Status: Within Functional Limits Social/Functional History Social/Functional History Lives With: Spouse Type of Home: House Home Layout: Two level, Performs ADL's on one level, Able to Live on Main level with bedroom/bathroom Home Access: Level entry Bathroom Shower/Tub: Walk-in shower Bathroom Toilet: Standard Home Equipment: Cane(Ambulates without AD at baseline) Receives Help From: Family ADL Assistance: Independent Homemaking Assistance: Independent Homemaking Responsibilities: Yes(shares with ) Ambulation Assistance: Independent Transfer Assistance: Independent Active Web Design Specialist: Yes Mode of Transportation: Car Occupation: Retired Leisure & Hobbies: Enjoys watching sports Additional Comments: Pt reports works full-time days, otherwise able to assist prn. Cognition Cognition Overall Cognitive Status: WFL Objective Joint Mobility Spine: WFL ROM RLE: WFL ROM LLE: WFL ROM RUE: WFL ROM LUE: WFL Strength RLE Strength RLE: WNL Strength LLE Strength LLE: Exception Comment: grossly 5/5 L Hip Flexion: 4/5 Strength RUE Strength RUE: WNL Strength LUE Strength LUE: WFL Comment: pt c/o decreased osteopathy doctor strength for 2-3 days with dropping of objects Tone RLE RLE Tone: Normotonic Tone LLE LLE Tone: Normotonic Motor Control Gross Motor?: WFL Sensation Overall Sensation Status: WFL(pt denies numbness and tingling) Bed mobility Rolling to Left: Stand by assistance Supine to Sit: Stand by assistance Sit to Supine: Stand by assistance Scooting: Stand by assistance Transfers Sit to Stand: Contact guard assistance Stand to sit: Contact guard assistance Stand Pivot Transfers: Contact guard assistance Comment: Performed transfers multiple times for linen change and jeffrey care. Increased time requiredto achieve upright posture, no LOB noted. Ambulation Ambulation?: Yes Ambulation 1 Surface: level tile Device: No Device Assistance: Contact guard assistance Quality of Gait: decreased romi, decreased L stance and step length, mildly unsteady without LOB Distance: 200ft Stairs/Curb Stairs?: Yes Stairs # Steps : 2 Stairs Height: 6 Rails: Right ascending Device: No Device Assistance: Contact guard assistance Comment: non-reciprocal ascending/descending- pt reports this is baseline from prior LLE surgery Balance Posture: Good Sitting - Static: Good Sitting - Dynamic: Good Standing - Static: Good;- Standing - Dynamic: Fair;+ Comments: standing balance assessed without AD Plan Plan Times per week: 5x/wk Current Treatment Recommendations: Strengthening, Balance Training, Functional Mobility Training, Transfer Training, Endurance Training, Patient/Caregiver Education & Training, Safety Education & Training, Home Exercise Program, Gait Training, ROM, Stair training, Neuromuscular Re-education Safety Devices Type of devices: Left in bed, Gait belt, Call light within reach, Nurse notified Restraints Initially in place: No AM-PAC Score [facility] Inpatient Mobility Raw Score : 19 (06/06/19 1146) [facility] Inpatient T-Scale Score : 45.44 (06/06/19 1146) Mobility Inpatient CMS 0-100% Score: 41.77 (06/06/19 1146) Mobility Inpatient [facility] G-Code Modifier : CK (06/06/19 114) Goals Short term goals Time Frame for Short term goals: 14 visits Short term goal 1: Perform bed mobility and functional transfers independently Short term goal 2: Ambulate 600ft independently Short term goal 3: Demo Good dynamic standing balance to decrease risk of falls Short term goal 4: Ascend/descend 4 steps with HR and SBA Therapy Time Individual Concurrent Group Co-treatment Time In 1052 Time Out 1118 Minutes 26 Timed Code Treatment Minutes: 8 Minutes Nancy Aguila PT * Erin Andrews 06/06/2019 10:16 AM EDT Speech Language Pathology Facility/Department: [address] NSICU Initial Speech/Language/Cognitive Assessment NAME: uEnice Marte : 1955 ADMISSION DATE: 06/05/2019 ADMITTING DIAGNOSIS: has Stroke determined by clinical assessment ([facility]) on their problem list. Date of Eval: 06/06/2019 Evaluating Therapist: Erin Andrews Primary Complaint: The patient is a 63 y.o. male presented with acute onset of L sided weakness that began at 1700 this evening. Pt reports that he was walking into his house after getting home from work when he felt generally weak. He has had TIAs in the past, and states that this felt somewhat similar. He was brought to [place] ED where NIH was calculated to be 8 for L sded facial paresis, senso ry deficit on L extremities, and confusion. He was too hypertensive for tPA there, but was given hydralazine life-flighted here. Here his blood pressure was within the window and he was given tPA at 2108. His symptoms have improved since onset. Pain: Pain Assessment Pain Assessment: 0-10 Pain Level: 0 Assessment: Pt presents with moderate cognitive deficits characterized by impaired organization, verbal reasoning, recall, and divergent naming. Pt presents with left sided facial weakness. ST to follow up and provide treatment to address noted deficits. Education provided. Recommendations: Requires ADOPTION COORDINATOR Intervention: Yes Duration/Frequency of Treatment: 3-5 x week D/C Recommendations: Further therapy recommended at discharge. Plan: Goals: Short-term Goals Goal 1: Pt will recall 3 units with and without distractions with 90% accuracy. Goal 2: Pt will receive memory compensatory strategies to aid in recall. Goal 3: Pt will complete verbal reasoning tasks with 90% accuracy. Goal 4: Pt will name 6 concrete items in a category with 90% accuracy. Goal 5: Pt will complete thought organizational tasks with 90% accuracy. Goal 6: Pt will complete O/M exercises to strengthen facial weakness. Patient/family involved in developing goals and treatment plan: yes Subjective: General Chart Reviewed: Yes Family / Caregiver Present: No Social/Functional History Lives With: Spouse Occupation: Retired Vision Vision: Within Functional Limits Hearing Hearing: Within functional limits Objective: Oral/Motor Oral Motor: Exceptions to WFL Labial Symmetry: Abnormal symmetry left Expression Primary Mode of Expression: Verbal Motor Speech Motor Speech: Within Functional Limits Cognition: Orientation Overall Orientation Status: Within Normal Limits Attention Attention: Within Functional Limits Memory Memory: Exceptions to WFL Short-term Memory: Severe(0/3) Immediate Memory: Severe(1/3, 1/5, 1/3) Problem Solving Problem Solving: Exceptions to WFL Verbal Reasoning Skills: Moderate(antoynms 2/3, homographs 1/4, similarities/ differences 3/4, deductive reasoning 0/2) Abstract Reasoning Abstract Reasoning: Exceptions to WFL Divergent Thinking: Severe(Pt named 2 concrete items ) Safety/Judgement Safety/Judgement: Exceptions to WFL Flexibility of Thought: Moderate(1/3) Word Associations: Severe (1/4) Verbal Sequencing: Within Functional Limits Prognosis: Speech Therapy Prognosis Prognosis: Good Individuals consulted Consulted and agree with results and recommendations: Patient Education: Patient Education Response: Verbalizes understanding Therapy Time: Individual Concurrent Group Co-treatment Time In 0858 Time Out 0911 Minutes 13 Completed by: Erin Andrews, Computer Equipment Repairer Clinician Cosigned By: Keysha Urena M.S.CCC/ADOPTION COORDINATOR 06/06/2019 10:16 AM * Suellen Allen RN - 06/06/2019 8:52 AM EDT Nursing Swallow Screen Complete swallow screen BEFORE any PO intake, including medications Have patient in highest tolerable sitting position. Have oral suction equipment available at bedside. Explain testing and rationale to patient. Is the patient alert and can follow simple commands? Y If NO stop Does the patient have a clear strong voice and can vocalize on command? Y If NO stop Is the patient's speech SEVERELY slurred or garbled? N If YES stop Can the patient voluntarily cough two times? Y If NO stop Is the patient able to maintain own secretions? Y If NO stop Is the patient is able to swallow 60ml of water without throat clearing, choking, gurgling, coughing, dribbling, or drooling? Y If NO stop Is the patient able to swallow 60ml of water from a STRAW without throat clearing, choking, gurgling, coughing, dribbling, or drooling? Y If NO stop If patient is unable to complete swallow screen successfully, patient should remain NPO until further swallow evaluation is completed by speech therapy. If patient is able to complete screen, notify physician to obtain diet and PO medication orders. Result: passed * Vipin Reddy MD - 06/06/2019 5:57 AM EDT Daily Progress Note Neuro Critical Care Patient Name: Eunice Marte Patient : 1955 Room/Bed: [id number] CHIEF COMPLAINT: Complaining of left facial droop, left-sided hemiparesis, slurred speech INTERVAL HISTORY: Admission (06/05/2019) Case of a 63 y.o. male patient with PMH of HTN, Diabetes, Stroke (4 years ago) who came to ED at [facility] after having a presentation of acute onset of left- sided weakness that began around 5 PM on June 05, 2019. Patient refers that he was around his house around that area he was feeling weak but then noticed that he was slurring the speech, have a left-sided facial droop, left- sided hemiparesis. At the [facility] NIH was calculated at 8 and decision was to give TPA. Patient was life flighted to [place] and was given hydralazine to control his blood pressure so TPA can be given. Received TPA at 9:08PM. Symptoms are referred to have improved overnight after TPA. Patient mentioned that 4 years ago he had a stroke that presented the same time. CT head was negative for hemorrhage or hypodensity but it did show previous bilateral caudate strokes most likely related to hypertension in the left occipital stroke which shape that could represent cardio embolic process, CTA head and neck was negative for LVO. Today Patient was evaluated at bedside and found alert and oriented x3, no acute distress, more improvement of his symptoms. She will have today stroke work-up HbA1c, LDL, echo, brain MRI. Patient is unsure of his medication regimen, pharmacy preferred that his current medication that was put on the system were the ones that he took last time in January. is not at bedside and is the one who knows more about his conditions and there is some question about his warfarin intake and a previous dosage ofKeppra. He was asked in the morning about having to take any anticholesterol he referred no but on his med list says that he takes warfarin. INR was 1.2. At 9 PM tonight will be his 24-hour post TPA head CT. CURRENT MEDICATIONS: SCHEDULED MEDICATIONS: sodium chloride flush 10 mL Intravenous 2 times per day [START ON 06/07/2019] enoxaparin 40 mg Subcutaneous Daily [START ON 06/07/2019] aspirin 81 mg Oral Daily Or [START ON 06/07/2019] aspirin 300 mg Rectal Daily atorvastatin 80 mg Oral Nightly insulin lispro 0-12 Units Subcutaneous TID WC insulin lispro 0-6 Units Subcutaneous Nightly docusate sodium 100 mg Oral BID famotidine 20 mg Oral BID sodium chloride flush 10 mL Intravenous 2 times per day VITALS: Temperature Range: Temp: 98.2 F (36.8 C) Temp Av.3 F (36.8 C) Min: 98.1 F (36.7 C) Max: 98.6 F (37 C) BP Range: Systolic (24hrs), Av , Min:133 , Max:181 Diastolic (24hrs), Av, Min:68, Max:120 Pulse Range: Pulse Av Min: 78 Max: 105 Respiration Range: Resp Av.4 Min: 12 Max: 27 Current Pulse Ox: SpO2: 91 % 24HR Pulse Ox Range: SpO2 Av.8 % Min: 88 % Max: 98 % Patient Vitals for the past 12 hrs: BP Temp Temp src Pulse Resp SpO2 Height Weight 06/06/19 0533 (!) 140/77 81 14 06/06/19 0503 133/77 87 16 91 % 06/06/19 0433 134/68 86 15 06/06/19 0403 (!) 142/87 98.2 F (36.8 C) Oral 98 15 96 % 06/06/19 0333 (!) 157/82 92 16 06/06/19 0303 133/75 87 15 92 % 06/06/19 0248 (!) 148/83 87 16 06/06/19 0233 133/77 84 15 06/06/19 0218 (!) 152/82 85 12 06/06/19 0203 (!) 153/82 87 17 92 % 06/06/19 0148 138/79 84 17 06/06/19 0133 (!) 152/77 84 15 06/06/19 0118 (!) 158/77 85 19 06/06/19 0103 (!) 164/84 98.6 F (37 C) Oral 86 18 92 % 06/06/19 0033 (!) 169/84 87 19 06/06/19 0017 (!) 158/90 84 19 93 % 06/06/19 0001 (!) 156/85 88 17 (!) 88 % 06/05/19 2347 (!) 134/120 104 18 95 % 06/05/19 2332 (!) 140/78 105 27 94 % 06/05/19 2316 (!) 181/85 96 22 94 % 06/05/19 2301 (!) 181/99 103 15 96 % 06/05/19 2247 (!) 171/84 87 18 97 % 06/05/19 2232 (!) 153/87 90 21 96 % 06/05/19 2224 (!) 162/70 82 15 96 % 06/05/19 2217 (!) 166/91 79 15 95 % 06/05/19 2211 (!) 177/93 83 19 96 % 06/05/19 2147 (!) 166/93 81 15 95 % 06/05/19 2131 (!) 152/80 78 18 95 % 06/05/19 2113 (!) 161/81 84 20 96 % 06/05/19 2106 (!) 156/87 79 19 97 % 06/05/19 2100 (!) 160/84 83 17 97 % 06/05/192047 6' (1.829 m) 220 lb (99.8 kg) 06/05/192046 (!) 172/97 86 19 97 % 06/05/192044 (!) 178/96 85 20 97 % 06/05/192041 (!) 178/96 98.1 F (36.7 C) Oral 82 19 98 % 6' (1.829 m) 220 lb (99.8 kg) Estimated body mass index is 29.84 kg/m as calculated from the following: Height as of this encounter: 6' (1.829 m). Weight as of this encounter: 220 lb (99.8 kg). []<16 Severe malnutrition []16 16.99 Moderate malnutrition []17 18.49 Mild malnutrition []18.5 24.9 Normal [x]25 29.9 Overweight (not obese) []30 34.9 Obese class 1 (Low Risk) []35 39.9 Obese class 2 (Moderate Risk) []?40 Obese class 3 (High Risk) RECENT LABS: DATA CBC: Recent Labs 06/05/19205306/06/19900 WBC 8.0 7.3 HGB 15.6 16.4 HCT 47.2 49.9 PLT 201 221 BMP: Recent Labs 06/05/19204906/05/19205306/06/192 06/06/19900 NA -- 135 -- 137 K -- 4.1 -- 3.9 CL -- 98 -- 101 CO2 -- 25 -- 20 BUN -- 8 -- 5* CREATININE 0.77 0.83 -- 0.48* GLUCOSE -- 353* 211 264* MG -- -- -- 2.0 Lab Results Component Value Date INR 1.2 06/05/2019 24 HOUR INTAKE/OUTPUT:No intake or output data in the 24 hours ending 06/06/19 0557 RADIOLOGY/IMAGING: Labs and Images reviewed with: [x] Omer Zambrano MD [] Oscar Harp MD [] Paco Lynch MD [] Greg Lopez MD --[] there are no new interval images to review. 1. Head CT WO Impression No acute intracranial abnormality. 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 Pansinusitis. RECOMMENDATIONS: The findings were sent to the Radiology Results Communication Center at 10:13 pm on 06/05/2019to be communicated to a licensed caregiver. Discussed with Dr. Son at 10:14 p.m.. 2. CTA H/N Impression Multiple tandem stenoses right posterior cerebral artery. Otherwise negative CTA of the head and neck. RECOMMENDATIONS: The findings were sent to the Radiology Results Communication Center at 10:48 pm on 06/05/2019to be communicated to a licensed caregiver. Case discussed with Dr. Son at 10:50 p.m.. ROS: CONSTITUTIONAL: negative for fatigue and malaise EYES: negative for double vision and photophobia HEENT: negative for tinnitus and sore throat RESPIRATORY: negative for cough, shortness of breath CARDIOVASCULAR: negative for chest pain, palpitations, or syncope GASTROINTESTINAL: negative for abdominal pain, nausea, vomiting, diarrhea, or constipation GENITOURINARY: negative for incontinence or retention MUSCULOSKELETAL: negative for neck or back pain, negative for extremity pain NEUROLOGICAL: Negative for seizures, headaches, confusion, aphasia Positive for left-sided weakness, numbness, left facial droop, mild dysarthria PSYCHIATRIC: negative for agitation, hallucination, SI/HI SKIN Negative for spontaneous contusions, rashes, or lesions PHYSICAL EXAM: GENERAL Appears comfortable and in no distress HEENT NC/ AT HEART S1 and S2 heard; palpation of pulses: radial pulse NECK Supple and no bruits heard MENTAL STATUS: Alert, oriented, intact memory, no confusion, normal language, no hallucination or delusion Positive for mild dysarthria CRANIAL NERVES: II - Visual hernandes intact to confrontation III,IV, - PERR, EOMs full, no ptosis V - Normal facial sensation VII - left facial droop VIII - Intact hearing IX,X - Symmetrical palate XI - Symmetrical shoulder shrug XII - Midline tongue, no atrophy MOTOR FUNCTION: RUE: Significant for good strength of grade 5/5 in proximal and distal muscle groups LUE: Significant for good strength of grade 4+/5 in proximal and distal muscle groups RLE: Significant for good strength of grade 5/5 in proximal and distal muscle groups LLE: Significant for good strength of grade 4+/5 in proximal and distal muscle groups Normal bulk, normal tone and no involuntary movements, no tremor SENSORY FUNCTION: Normal touch, normal pin, normal vibration, normal proprioception except left face the V2 V3 mild numbness and distal paresthesias in upper and lower extremity due to diabetes neuropathy CEREBELLAR FUNCTION: Intact fine motor control over upper limbs and lower limbs REFLEX FUNCTION: Symmetric in upper and lower extremities, no Babinski sign STATION and GAIT deferred but OT and PT will work with patient VENTILATOR [x] No ventilator in this patient [] Ventilator: Settings Mode Tidal Volume RR PEEP O2% DRAINS: [x] There are no drains for Neuro Critical Care to monitor at this time. [] Drain monitored by NICU [] Drain monitored by NSG PLAN / MEDICAL DECISION MAKING: This is a 63 y.o. male with an onset of dysarthria, left facial droop, left- sided hemiparesis. Received TPA at 9 PM yesterday. Will evaluate today with another head CT 24 hours after TPA for hemorrhagic conversion. SONNY will be done tomorrow due to head CT showing what is most likely a cardioembolicprocess in the past. Patient in pharmacy history is on warfarin but he is unsure why. Will talk with family NEUROLOGIC: GCS 15/[address] negative for hemorrhage and hypodensity. Positive for previous bilateral carotid stroke most likely hypertensive and left occipital stroke wedge-shaped most likely cardio embolic CT head and neck was negative for LVO We will have brain MRI for evaluation of new stroke and repeat CT scan 24 hours after TPA CARDIOVASCULAR: SBP Goal < 140 No issues overnight with heart rate or blood pressure Patient will be started on his home dose blood pressure medication to start weaning off Cleviprex. PRN ordered Due to findings on head CT will skip transthoracic echo and will go straight to SONNY. Cardiology on board and will do it tomorrow June 07, 2019 to avoid any complications due to recent TPA. Due to intracranial atherosclerosis seen on CTA head patient will benefit from dual antiplatelet. After head CT if no bleeding will start aspirin at least. Will evaluate with the echo if there is anyneed for anti-correlation. There is an unknown story that why patient is on warfarin on system but will talk with family to have some more input Telemetry Lines:1 on left arm PULMONARY: Chest x-ray unremarkable Wean off oxygen RENAL/FLUID/ELECTROLYTE: Sodium 137 Potassium 3.9 BUN 5 Creatinine 0.48 GI/NUTRITION: NUTRITION: DIET CARDIAC; Carb Control: 4 carb choices (60 gms)/meal Diet NPO, After Midnight ID: T-max 37 No fevers White blood cells 8 No antibiotics for the moment HEMATOLOGIC: Hgb: 15.6 Hct: 47.2 Plt: 201 No complications with TPA at the moment System and by pharmacy patient is supposed to be on warfarin. Patient unsure why he is on warfarin if it is for any DVT, PE or any heart arrhythmia ENDOCRINE: HbA1c came back and was 12.3. It shows patient is not compliant with medication or has not been following with primary to evaluate his diabetes status Currently on high insulin scale OTHER: ? PT, OT, speech ? PMR ? Endovascular neurosurgery PROPHYLAXIS: Stress ulcer: None Anticoagulation: Prophylaxis [] Heparin 5000 Subcutaneous Q8 [] Lovenox 40mg Subcutaneous D [] Lovenox 30mg Suncutaneous D [] Compression Stockings Full Treatment [] Heparin Drip [] Lovenox 1mg/Kg Subcutaneous BID [] Lovenox 1mg/Kg Subcutaneous D [] NOAC [] Warfarin [x] No chemical anticoagulation at moment due to: Post TPA. Evaluate if after [address] head is negative we will start aspirin DISPOSITION: [x] To remain ICU [] OK for out of ICU from Neuro Critical Care standpoint We will continue to follow along. For any changes in exam or patient status please contact Neuro Critical Care Team Vipin Morales MD Neurology Resident PGY-3 Neuro Critical Care Pager [phone] 06/06/2019 5:57 AM Associated attestation - Omer Zambrano MD - 06/06/2019 5:24 PM EDT Patient admitted overnight, staffed this am. H & P from overnight addended. M Sudheer Zambrano MD * Gonzales Camarena MD - 06/05/2019 8:42 PM EDT [address] [facility] Flight Physician Pt Name:Eunice Marte Birthdate 1955 Date of evaluation: 06/05/19 PCP: Adilson Salazar MD REASON FOR FLIGHT Patient was transported from [place] to [place] due to stroke. Flight was indicated for further care at [facility] stroke center HISTORY OF PRESENT ILLNESS Eunice Marte is a 63 y.o. male who acute onset left-sided upper and lower extremity weakness while walking in his yard. Symptoms occurred at approximately 5 PM this afternoon. Patient's is arrived to [place] emergency department where he was found to have an NIH score of 8. Calculated by left-sided facial paresis, altered mental status as well as left upper and lower extremity weakness. Patient also has a sensory deficit on the left side of his left upper and lower. Has a history of DVT on Coumadin, hypertension and uncontrolled diabetes. On arrival patient stated that his symptoms had mildly improved. No complaints of pain. No visual deficits, diplopia. Patient found to be hypertensive, given hydralazine 10 mg by ED physician. Took an aspirin this morning as well, history of prior stroke 4 years ago. No recent surgeries, no historyof intracranial hemorrhage. Ativan was provided by edition prior to flight due to anxiety regardingtransport. PRE HOSPITAL MEDICATIONS Hydralazine, 0.5 mg Ativan, 1L NS PHYSICAL EXAM Physical Exam Constitutional: He appears well-developed and well-nourished. HENT: Head: Normocephalic and atraumatic. Eyes: Pupils are equal, round, and reactive to light. Conjunctivae are normal. Neck: Normal range of motion. Neck supple. Cardiovascular: Normal rate, regular rhythm and normal heart sounds. Pulmonary/Chest: Effort normal and breath sounds normal. No respiratory distress. He has no wheezes. Abdominal: Soft. Bowel sounds are normal. He exhibits no distension. There is no tenderness. Musculoskeletal: Normal range of motion. He exhibits no edema or deformity. Neurological: Oriented x3. Flattening of the left nasolabial fold. Patient has left upper extremity drift as wellas left lower extremity drift. Decreased sensation of light touch left upper and lower extremity. No aphasia, cranial nerves intact. Skin: Skin is warm and dry. No rash noted. JAZMIN Mrate is a 63 y.o. presenting with left-sided weakness of left upper and lower extremity. Patient also has flattening of the nasolabial fold, NIH 4, reportedly 8 prior to arrival. Patient is hypertensive, but her pressure is ranging in the 190s systolic over 120s diastolic. Hydralazinewas given prior to arrival. Head CT done at outside hospital was reportedly negative, read pending.INR 1.04. No absolute contraindications to TPA however patient is consistently hypertensive with systolics above 185, patient remains in the TPA window, will need blood pressure control and possible TPA administration following evaluation by neuro endovascular. Vitals remained stable throughout flight, tolerated well. Hyperglycemia to 400s. PROCEDURES: None CRITICAL CARE: None Destination Patient arrived at [place] in stable condition no significant changes in flight, all questions receiving staff had were answered. Gonzales Camarena MD Life Flight Physician (Please note that portions of this note were completed with a voicerecognition program. Efforts were made to edit the dictations but occasionally words are mis-transcribed.) documented in this encounter Assessments Diagnosis Cerebrovascular accident (CVA), unspecified mechanism (HCC)- Primary Acute left hemiparesis (HCC) Hemiplegia, unspecified, affecting unspecified side History of ischemic left MCA stroke Transient ischemic attack (TIA), and cerebral infarction without residual deficits History of diabetes mellitus Personal history of other endocrine, metabolic, and immunity disorders History of hypertension Personal history of other diseases of circulatory system History of DVT (deep vein thrombosis) Personal history of venous thrombosis and embolism Advance Directives No Advanced Directives Records FoundDocuments on File Type Date Recorded Patient Health Care Law Specialist Expl anation Advance Directives and Living Will Power of E Marketing Specialist Latest Code Status on File Code Status Date Activated Date Inactivated Comments Full Code 06/07/2019 5:05 PM Full Code 06/07/2019 1:53 PM 06/07/2019 5:04 PM Full Code 06/06/2019 1:17 AM 06/07/2019 1:53 PM Advance Directive Response Recorded Date/ Time Advance Directives No June 24, 2021 7:53pm Advance Directive Response Recorded Date/ Time Advance Directives No June 24, 2021 6:53pm Summary Purpose Family History No Family History Records Found Relationship Condition Age at Onset Recorded Date/T nikita father Heart disease Unknown sister Heart disease Unknown Chief Complaint and Reason for Visit Chief Complaint R97.20 N40.1 N52.9 Chief Complaint C61 Reason for Referral Referred by: Dewey COTTO, Milvia Lucia Additional Source Comments Reason for Visit (unrecogniz ed section and content) Reason Comments Cerebrovascular Accident Status Reason Specialty Diagnoses / Procedures Referre d By Contact Referred To Contact Diagnoses Stroke determined by clinical assessment ([facility]) Oscar Harp MD [address] [place] [address] [facility] (unrecognized sect ion and content) No Status Records FoundNo Status Records FoundNo Status Records FoundNo Status Records FoundNo Status Records FoundNo Status Records Found INFORMATION SOURCE (unrecogn ized section and content) DATE CREATED AUTHOR 06/19/2019 [facility] DATE CREATED AUTHOR AUTHOR'S ORGANIZ ATION 09/29/2022 [facility] DATE CREATED AUTHOR AUTHOR'S ORGANIZ ATION 11/21/2022 [facility] DATE CREATED AUTHOR AUTHOR'S ORGANIZ ATION 03/29/2023 [facility] DATE CREATED AUTHOR AUTHOR'S ORGANIZ ATION 09/21/2023 [facility] DATE CREATED AUTHOR AUTHOR'S ORGANIZ ATION 09/27/2023 [facility] dical Specialists EPIC Care Team (unrecognized sect ion and content) Team Status: Inactive Member Role Status Dates Adilson Salazar MD Primary Care Provider Active Milvia Palomo MD Attending Provider Active Team Status: Active Member Role Status Dates Adilson Salazar MD Primary Care Provider Active Goals (unrecognized section and content) Goals may be documented in a n alternate section FOR RECORDS PERTAINING TO PATIENTS WHO ARE OR HAVE BEEN ENROLLED IN A CHEMICAL DEPENDENCY/SUBSTANCEABUSE PROGRAM, SOME INFORMATION MAY BE OMITTED. This clinical summary was aggregated from multiple sources. Caution should be exercised in using it in the provision of clinical care. This summary normalizes information from multiple sources, and as a consequence, information in this document may materially change the coding, format and clinical context of patient data. In addition, data may be omitted in some cases. CLINICAL DECISIONS SHOULD BE BASED ON THE PRIMARY CLINICAL RECORDS. [facility] [employer] provides no warranty or guarantee of the accuracy or completeness of information in this document.
[2023-09-29 12:01] LABS: Estimated Average Glucose 189 mg/dL; Glycohemoglobin A1C 8.2 % (4.5-6.2)
== END 2023-09-29 11:32 | disposition home or self-care (01) ==
LOC: LAB 11:32
PROVIDERS: PCP Family Medicine; Visit Provider Family Medicine
DX: E11.65 Type 2 diabetes mellitus with hyperglycemia (principal); Z79.4 Long term (current) use of insulin
CPT/HCPCS: 36415; 83036

== ENCOUNTER 2023-12-29 12:19 | Outpatient (OUT) | payer OTHER, MEDICARE, SELFPAY ==
[2023-12-29 13:04] LABS: Estimated Average Glucose 157 mg/dL; Glycohemoglobin A1C 7.1 % (4.5-6.2)
== END 2023-12-29 12:20 | disposition home or self-care (01) ==
LOC: LAB 12:21
PROVIDERS: PCP Family Medicine; Visit Provider Family Medicine
DX: E11.65 Type 2 diabetes mellitus with hyperglycemia (principal); Z79.4 Long term (current) use of insulin
CPT/HCPCS: 36415; 83036

== ENCOUNTER 2024-03-12 22:01 | Emergency (ER) | payer OTHER, MEDICARE, SELFPAY ==
[2024-03-12] VITALS (16 sets, daily range): BP systolic 122–153; BP diastolic 66–83; PULSE 62–76; TEMP 37; O2SAT 97–100; BMI 33.9
--- OUTSIDE RECORDS SUMMARY | 2024-03-12 22:09 | XMS_ITS | CCD ---
Author Organization [facility] Care Team Providers Care Oyster Harvester Name Role Phone Adilson Salazar Primary Care Provider OSCAR HARP Admitting Unavailable JAVIER POSADAS Consulting Unavailable OMER ZAMBRANO Attending Unavailable NADEREQuinton, ADILSON SANCHES Primary Care UnavailJAMILA Raygoza Consulting Unavailable ADILSON SALAZAR Primary Care Physician MD Adilson Salazar Primary Care Provider MD Milvia Palomo Attending Provider MD Adilson Salazar Primary Care Provider MD Milvia Palomo Attending Provider [phone] MARIE, DR ADILSON Johnson Admitting Unavailable NADERER, DR ADILSON Johnson Attending Unavailable NADERER, DR ADILSON Johnson Primary Care Unavailable NADERER, DR ADILSON Johnson Consulting Unavailable NADERER, DR ADILSON Johnson Admitting Unavailable NADERER, DR ADILSON Johnson Attending Unavailable NADERER, DR ADILSON Johnson Primary Care Unavailable ZIEBER, DR SUELLEN Alcantara Consulting Unavailable NADERER, DR ADILSON Johnson Consulting Unavailable NILL ., DR ACEVEDO Admitting Unavailable NILL ., DR ACEVEDO Attending Unavailable NADERER, DR ADILSON Johnson Primary Care Unavailable NILL ., DR ACEVEDO Consulting Unavailable NILL ., DR ACEVEDO Admitting Unavailable NILL ., DR ACEVEDO Attending Unavailable NADERER, DR ADILSON Johnson Primary Care Unavailable ZIEBER, DR SUELLEN Alcantara Consulting Unavailable NILL ., DR ACEVEDO Consulting Unavailable LUEMILVIA Admitting Unavailable LUE, MILVIA Powers Attending Unavailable NADERER, DR ADILSON Johnson Primary Care Unavailable LUEMILVIA Consulting Unavailable NADERER, DR ADILSON A Primary Care Unavailable DIAB ., SAMIA Admitting Unavailable DIAB ., SAMIA Attending Unavailable DIAB ., SAMIA Consulting Unavailable NADERER, DR ADILSON Johnson Primary Care Unavailable CIRO, DR IRA Alcantara Consulting Unavailable NADERER, DR [...] Attending Unavailable Lue, Milvia M. Referring Unavailable Naderer Adilson COTTO Primary Care Provider Adilson Salazar Primary Care Unavailable SonyaNatasha R Admitting Unavailable SonyaNatasha R Attending Unavailable Lue, Milvia M Referring Unavailable NADERER, ADILSON Attending Unavailable NADERER, ADILSON Attending Unavailable NADERER, ADILSON Attending Unavailable LINDA, PHYLLIS Attending Unavailable MOUKARBEL, SAMREEN Attending Unavailable MOUKARBEL, SAMREEN Attending Unavailable LINDA, FIRAS Referring Unavailable HADZIAHMETOVIC, SILVANO Attending Unavaila ble LINDA, FIRAS Referring Unavailable LINDA, FIRAS Referring Unavailable LINDA, FIRAS Referring Unavailable HADZIAHMETOVIC, SILVANO Attending Unavaila ble LINDA, FIRAS Referring Unavailable LINDA, FIRAS Referring Unavailable MOUKARBEL, SAMREEN Referring Unavailable MOUKARBEL, SAMREEN Referring Unavailable MOUKARBEL, SAMREEN Referring Unavailable LINDA, FIRAS Referring Unavailable HADZIAHMETOVIC, MERSIHA Attending Unavaila ble MOUKARBEL, SAMREEN Referring Unavailable LINDA, FIRAS Referring Unavailable LINDA, FIRAS Referring Unavailable LINDA, FIRAS Referring Unavailable LINDA, FIRAS Referring Unavailable LINDA, FIRAS Referring Unavailable LINDA, FIRAS Attending Unavailable LINDA, FIRAS Referring Unavailable LINDA, FIRAS Referring Unavailable HADZIAHMETOVIC, MERSIHA Attending Unavaila ble LINDA, FIRAS Referring Unavailable LINDA, FIRAS Referring Unavailable HADZIAHMETOVIC, MERSIHA Attending Unavaila ble LINDA, FIRAS Referring Unavailable LINDA, FIRAS Referring Unavailable LINDA, FIRAS Referring Unavailable LINDA, FIRAS Referring Unavailable LINDA, FIRAS Referring Unavailable LINDA, FIRAS Referring Unavailable HADZIAHMETOVIC, MERSIHA Attending Unavaila ble LINDA, FIRAS Referring Unavailable LINDA, FIRAS Referring Unavailable LINDA, FIRAS Referring Unavailable LINDA, FIRAS Referring Unavailable LINDA, FIRAS Referring Unavailable LINDA, FIRAS Referring Unavailable LINDA, FIRAS Referring Unavailable LINDA, FIRAS Referring Unavailable LINDA, FIRAS Referring Unavailable LINDA, FIRAS Referring Unavailable LINDA, FIRAS Referring Unavailable HADZIAHMETOVIC, MERSIHA Attending Unavaila ble HADZIAHMETOVIC, MERSIHA Attending Unavaila ble LINDA, FIRAS Referring Unavailable HADZIAHMETOVIC, MERSIHA Referring Unavaila ble LINDA, FIRAS Referring Unavailable MOUKARBEL, SAMREEN Referring Unavailable LINDA, FIRAS Attending Unavailable LINDA, FIRAS Attending Unavailable LINDA, FIRAS Referring Unavailable LINDA, FIRAS Referring Unavailable Allergies Allergy Classification Reported Allergen(s) Allergy Type Date of Onset Reaction(s) Facility (16 sources) Labetalol; 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: [labetalol] Drug Allergy 0 Unknown (origin) (qualifier value) [facility] (14 sources) Penicillin; 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: [penicillin] Drug Allergy 7 Unknown [facility] (6 sources) Penicillins; 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: [Penicillins] Allergy to substance 4 [facility] (1 source) Labetalol Drug Allergy [facility] (1 source) Labetalol Drug Allergy 1 [facility] Rep[facility] Medications Current Medications Medication Drug Class(es) Dates Sig (Normalized) Sig (Original) acetaminophen 500 mg oral tablet (2 sources) take 2 tablets by mouth every six hours as needed for pain acetaminophen (Tylenol) 500 MG tablet Take 1,000 mg by mouth every 6 (six) hours if needed for mild pain. 0 Active acetaminophen 325 mg / HYDROcodone bitartrate 5 mg oral tablet (2 sources) Opioid Agonist Start: 06-24-2021 take 1 tablet by mouth every six hours Hydrocodone-Acetami nophen Active 1 TAB PO Q6H June 23, 2021 11:00pm albuterol 0.833 mg/ml / ipratropium bromide 0.167 mg/ml inhalation solution (12 sources) Anticholinergic, beta2-Adrenergic Agonist Start: 06-11-2022 DuoNeb 2.5 mg-0.5 mg/3 mL Soln-Inh 3 mL, NEB, q4hr Shortness of breath or wheezing, Refill(s) 0 Start Date: 06/11/22 Status: Ordered ipratropium-albu terol (Duo-Neb) 0.5-2.5 mg/3 mL nebulizer solution Take 3 mL by nebulization every 6 (six) hours. 0 Active amLODIPine 10 mg oral tablet (16 sources) Dihydropyridine Calcium Channel David Start: 08-12-2020 take 1 tablet by mouth once daily amLODIPine 10 mg Tab 10 mg = 1 tab(s), Oral, Daily, High blood pressure Start Date: 08/12/20 Status: Ordered aspirin 81 mg oral tablet (18 sources) Platelet Aggregation Inhibitor, Nonsteroidal Anti-inflammatory Drug [...] 81 mg atorvastatin 80 mg oral tablet (18 sources) HMG-CoA Reductase Inhibitor Start: 06-06-2019 take 1 tablet by mouth once daily atorvastatin 80 mg Tab 80 mg = 1 tab(s), Oral, Daily, Refills(s) 0, High cholesterol Start Date: 08/12/20 Status: Ordered azithromycin 250 mg oral tablet (2 sources) Macrolide Antimicrobial Start: 06-24-2021 Azithromycin Active 0 .ROUTE .COMPLEX June 23, 2021 11:00pm Take two tablets by mouth on day 1, then one tablet once a day on day two through five. Started 06/23/21 bisacodyl 10 mg rectal suppository (1 source) Stimulant Laxative Start: 06-06-2019 bisacodyl (DULCOLAX) suppository 10 mg Blood Glucose Monitoring Suppl kit (2 sources) Start: 09-26-2023 Blood Glucose Monitoring Suppl kit Indications: Type 2 diabetes mellitus with hyperglycemia, with long-term current use of insulin ([facility]) 1 each in the morning and 1 each in the evening and 1 each before bedtime. 1 kit 0 09/26/2023 Active budesonide 0.25 mg/ml inhalation suspension (12 sources) Corticosteroid Start: 06-11-2022 take 0.5 mg by inhalation twice daily as needed for wheezing budesonide 0.5 mg/2 mL Inh Susp 0.5 mg = 2 mL, NEB, BID, PRN Shortness of breath or wheezing, Refills(s) 0 Start Date: 06/11/22 Status: Ordered take 0.25 mg by mouth in the mor naga budesonide (Pulmicort) 0.25 MG/2ML nebulizer solution Take 0.25 mg by nebulization in the morning. Rinse mouth with water after use to reduce aftertaste and incidence of candidiasis. Do not swallow.. 0 Active 24 hr buPROPion hydrochloride 150 mg extended release oral tablet (1 source) Aminoketone take 1 tablet by mouth once daily in the morning buPROPion (WELLBUTRIN XL) 150 MG extended release tablet Take 150 mg by mouth every morning 0 Active calcium carbonate 600 mg / cholecalciferol 0.01 mg oral tablet (2 sources) Vitamin D Start: 4 take 1 tablet by mouth in the morning Calcium + Vitamin D3 600-10 MG-MCG tablet Take 1 tablet by mouth in the morning. 0 09/20/2023 Active calcium polycarbophil 625 mg oral tablet (10 sources) Start: 2 take 2 tablets by mouth once daily FiberCon 625 mg Tab 1,250 mg = 2 tab(s), Oral, Daily, Refills(s) 0, Constipation Start Date: 06/11/22 Status: Ordered cholecalciferol 0.05 mg oral tablet (16 sources) Vitamin D Start: 1 take 50 ug by mouth once daily [...] Start: 06-07-2019 enoxaparin (LOVENOX) injection 40 mg ezetimibe 10 mg oral tablet (2 sources) Dietary Cholesterol Absorption Inhibitor Start: 08-17-2023 take 1 tablet by mouth in the morning ezetimibe (Zetia) 10 MG tablet Take 10 mg by mouth in the morning. 0 08/17/2023 Active folic acid 1 mg oral tablet (2 sources) Start: 06-08-2019 take 1 tablet by mouth twice daily folic acid (FOLVITE) 1 MG tablet Take 1 tablet by mouth 2 times daily 30 tablet 3 06/09/2019 Active glipiZIDE 10 mg oral tablet (17 sources) Sulfonylurea Start: 06-24-2021 take 1 tablet by mouth twice daily glipiZIDE 10 mg Tab 10 mg = 1 tab(s), Oral, BID, Refills(s) 0, Blood glucose Start Date: 06/11/22 Status: Ordered Start: 08-12-2020 take 1 mg by mouth once daily glipiZIDE 10 mg ER Tab mg tab(s), Oral, Daily Start Date: 08/12/20 Status: Ordered glucagon (rdna) 1 mg injection (1 source) [...] mg / lisinopril 20 mg oral tablet (18 sources) Thiazide Diuretic, Angiotensin Converting Enzyme Inhibitor [...] First dos e on Tue06/06/19 at 1345 take 1 tablet by marianne th in the morning lisinopril-hydroCHLOROthiazide 20-12.5 M G tablet Take 1 tablet by mouth in the morning. 0 Active ibuprofen 800 mg oral tablet (2 sources) Nonsteroidal Anti-inflammatory Drug Start: 06-24-2021 take 800 mg by mouth every six hours Ibuprofen Active 800 MG PO Q6H June 23, 2021 11:00pm 3 ml insulin glargine 100 unt/ml pen injector (4 sources) Insulin Analog Start: 09-29-2023 insulin glargi ne (Lantus SoloStar) 100 UNIT/ML pen Indications: Type 2 diabetes mellitus with hyperglycemia, with long-term current use of insulin (CMS/HCC) Inject 40 Units under the skin at bedtime 0 09/29/2023 Active Start: 08-10-2023 End: 08-09-2024 insulin glargine (Lantus Soo oStar) 100 UNIT/ML pen Indications: Type 2 diabetes mellitus with hyperglycemia, with long-term current use of insulin (CMS/HCC) Inject 35 Units under the skin at bedtime 15 mL 5 08/10/2023 09/29/2023 Discontinued (Reorder) Start: 06-07-2019 insulin glargi ne (LANTUS) injection vial 20 Units insulin lispro [...] hydrochloride 500 mg extended release oral tablet (17 sources) Biguanide Start: 07-10-2023 take 1 tablet by mouth every twenty-four hours in the morning metFORMIN XR (Glucophage-XR) 500 MG 24 hr tablet Take 500 mg by mouth in the morning and 500 mg before bedtime. 0 07/10/2023 Active Start: 06-24-2021 take 500 mg by mouth twice lakisha ly Metformin Active 500 MG PO Twice daily [...] June 25, 2021 11:00pm start 06/27/21 am 24 hr metoprolol succinate 50 mg extended release oral tablet (4 sources) beta-Adrenergic David Start: 09-10-2023 take 1 tablet by mouth every twenty-fou r hours in the morning metoprolol succinate XL (Toprol-XL) 50 MG 24 hr tablet TAKE 1 TABLET BY MOUTH IN THE MORNING DO NOT CRUSH OR CHEW 0 09/10/2023 Active Start: 06-09-2019 take 0.5 tablet by m outh twice daily metoprolol tartrate (LOPRESSOR) 25 MG [...] Daily, # 30 tab(s), Refills(s) 6, Pharmacy: [id number], 183, cm, 04/21/22 11:40:00 EDT, Height/Length Dosing, 110.3, kg, 04/21/22 11:40:00 EDT, Weight Dosing Start Date: 04/21/22 Status: Ordered montelukast 10 mg oral tablet (17 sources) Leukotriene Receptor Antagonist Start: 09-20-2023 take 1 tablet by mouth at bedtime montelukast (Singulair) 10 MG tablet Take 10 mg by mouth at bedtime 0 09/20/2023 Active Start: 08-12-2020 take 1 tablet by marianne th once daily montelukast 10 mg Tab 10 mg = 1 tab(s), Oral, Daily, Refills(s) 0, Asthma Start Date: 08/12/20 Status: Ordered take 1 tablet by marianne th once daily montelukast (SINGULAIR) 10 MG tablet Take 10 mg by mouth nightly 0 Active 2 ml ondansetron 2 mg/ml injection (1 source) Serotonin-3 Receptor Antagonist Start: 06-06-2019 ondansetron (ZOFRAN) injection 4 mg pioglitazone 30 mg oral tablet (17 sources) Peroxisome Proliferator Receptor alpha Agonist, Peroxisome Proliferator Receptor gamma Agonist, Thiazolidinedione Start: 08-12-2020 take 1 tablet by mouth once daily pioglitazone 30 mg Tab 30 mg = 1 tab(s), Oral, Daily, Refills(s) 0, Blood glucose Start Date: 08/12/20 Status: Ordered Potassium Chloride (1 source) Start: 06-07-2019 potassium chloride (KLOR-CON M) extended release tablet 40 mEq pravastatin sodium 40 mg oral tablet (1 source) HMG-CoA Reductase Inhibitor take 1 tablet by mouth once daily pravastatin (PRAVACHOL) 40 MG tablet Take 40 mg by mouth daily 0 Active relugolix (Orgovyx) 120 MG tablet (2 sources) take 1 tablet by mouth once daily relugolix (Orgovyx) 120 MG tablet Take by mouth Daily. 0 Active rosuvastatin calcium 40 mg oral tablet (2 sources) HMG-CoA Reductase Inhibitor Start: 08-17-2023 take 1 tablet by mouth in the morning rosuvastatin (Crestor) 40 MG tablet Take 40 mg by mouth in the morning. 0 08/17/2023 Active 3 ml sodium chloride 9 mg/ml injection (7 sources) Start: 06-07-2019 10 mL, Intravenous, EVERY 12 HOURS SCHEDULED (2 times per day), First dose on Ingrid 06/07/19 at 2100, Recovery(Cath) Start: 06-07-2019 take 10 mL intraveno us route once 10 mL, Intravenous, PRN, Line Care, Starting Ingrid 06/07/19 at 1704 After every IV line use Recovery(Cath) Start: 06-07-2019 End: 06-08-2019 0.9 % sodium chloride infusi on Start: 06-05-2019 sodium chlorid e flush 0.9 % injection 10 mL tamsulosin hydrochloride 0.4 mg oral capsule (14 sources) alpha-Adrenergic David Start: 09-18-2023 take 1 capsule by mouth every twenty-four hours in the morning tamsulosin (Flomax) 0.4 MG 24 hr capsule Take 0.4 mg by mouth in the morning. 0 09/18/2023 Active Start: 06-11-2022 take 1 capsule by mo uth once daily tamsulosin 0.4 mg Cap 0.4 mg = 1 cap(s), Oral, Daily, Refills(s) 0, Bladder problems Start Date: 06/11/22 Status: Ordered Start: 06-09-2019 take 1 capsule by mo uth once daily tamsulosin (FLOMAX) 0.4 MG capsule Take 1 capsule by mouth daily 30 capsule 3 06/09/2019 Active triamcinolone acetonide 5 mg/ml topical cream (12 sources) Corticosteroid Start: 06-11-2022 triamcinolone Top 0.5% Crm 1 anne, Topical, TID Other (see comment), Refill(s) 0 Start Date: 06/11/22 Status: Ordered triamcinolone (K enalog) 0.5 % cream Apply 1 application topically in the morning and 1 application in the evening and 1 application before bedtime. 0 Active Completed/Discontinued Medications Medication Drug Class(es) Dates Sig [...] (CVA)] Onset: 9 06-06-2019 Chronic Allergic reactions (12 sources) Vesicular eczema; 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: [Dyshidrosis [pompholyx]] Onset: 3 06-11-2022 Episodic Asthma (12 sources) Asthma; 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: [Unspecified asthma, uncomplicated] Onset: 2 06-11-2022 Chronic Cancer of prostate (18 sources) Malignant neoplasm of prostate; 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: [Malignant [...] systolic (congestive) heart failure] Onset: 3 Chronic Delirium, dementia, and amnestic and other cognitive disorders (3 sources) Vascular dementia without behavioral disturbance; 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: [Multi-infarct dementia, uncomplicated] Onset: 3 08-05-2023 Chronic Diabetes mellitus with complications (5 sources) Type 2 diabetes mellitus with diabetic chronic kidney disease; 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: [Type 2 diabetes mellitus with hyperglycemia] Onset: 2 08-05-2023 Chronic Diabetes mellitus without complication (13 sources) Diabetes mellitus; 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: [Type 2 diabetes mellitus without complications] Onset: 3 06-25-2021 Chronic Diseases of white blood cells (10 sources) Eosinophil count raised 06-11-2022 Chronic Disorders of lipid metabolism (15 sources) Hyperlipidemia; 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: [Hyperlipidemia, unspecified] Onset: 2 08-12-2020 Chronic Esophageal disorders (13 sources) Gastroesophageal reflux disease; 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: [Gastro-esophageal reflux [...] CKD/UNS CKD] Onset: 2 Chronic Mood disorders (14 sources) Depressive disorder; 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: [Recurrent major depressive episodes, moderate ] Onset: 3 08-12-2020 Chronic Mycoses (4 sources) Tinea pedis; 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: [TINEA PEDIS] Onset: 3 Episodic Nutritional deficiencies (13 sources) Vitamin D deficiency; 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: [Vitamin D deficiency, unspecified] Onset: 2 06-11-2022 Chronic Other aftercare (1 source) Other [employer] (current) drug therapy; 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: [OTH NECK PINNER CURRENT DRUG THERAPY] Onset: 3 Episodic Other aftercare (1 source) lokie engineer (current) use of insulin; 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: [[facility] CURRENT USE OF INSULIN] Onset: 3 Episodic Other aftercare (1 source) intermediate (current) use of oral hypoglycemic drugs; 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: [NECK PINNER USE ORAL HYPOGLYCEMIC DX] Onset: 3 Episodic Other aftercare (1 source) lokie engineer (current) use of aspirin; 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: [NECK PINNER CURRENT USE OF ASPIRIN] Onset: 3 Episodic Other and ill-defined cerebrovascular disease (1 source) Cerebrovascular disease, unspecified; 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: [CEREBROVASCULAR DISEASE UNSPECIFIED] Onset: 3 Chronic Other and ill-defined cerebrovascular disease (2 sources) Cerebrovascular disease; 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: [Cerebrovascular disease, unspecified] Onset: 3 08-05-2023 Chronic Other circulatory disease (2 sources) H/O: hypertension; 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: [History of hypertension] 06-06-2019 Episodic Other circulatory disease (12 sources) History of cerebrovascular accident; 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: [History of ischemic left MCA stroke] 06-06-2019 Episodic Other diseases of bladder and urethra (1 source) Detrusor overactivity; 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: [Overactive bladder] Onset: 3 Chronic Other diseases of bladder and urethra (1 source) Overactive bladder 02-02-2023 Chronic Other eye disorders (12 sources) Abducens nerve palsy; 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: [Sixth [abducent] nerve palsy, right eye] Onset: 3 06-11-2022 Episodic Other hematologic conditions (2 sources) [...] hemiparesis] 06-06-2019 Chronic Phlebitis; thrombophlebitis and thromboembolism (15 sources) H/O: Deep vein thrombosis; 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: [Personal history of other venous thrombosis and embolism] Onset: 3 06-08-2019 Episodic Residual codes; unclassified (12 sources) Obstructive sleep apnea syndrome; 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: [Obstructive sleep apnea (adult) (pediatric)] Onset: 3 06-11-2022 Chronic Residual codes; unclassified (1 source) [...] Onset: 02-17-2023 Episodic Other aftercare (2 sources) intermediate (current) use of other agents affecting estrogen receptors and estrogen levels; 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: [intermediate (current) use of other agents affecting estrogen receptors and estrogen levels] Onset: 05-25-2023 Episodic Other circulatory disease (3 sources) Personal history of transient ischemic attack (TIA), and cerebral infarction without residual deficits; 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: [PERS HX TIA AND CI NO RESID DEFICIT] Onset: 07-29-2022 Episodic Other lower respiratory disease (2 sources) Shortness of breath; 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: [Shortness of breath] Onset: 02-17-2023 Episodic Other screening for suspected conditions (not mental disorders or infectious disease) (13 sources) Raised prostate specific antigen; 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: [Elevated [...] Test Name Value Interpretation Reference Range Facility 36on 02-14-2024 36 Prescription approve d 02/13/2024 through mychart request. Lilia Gonzalez MA [facility] Labon 02-06-2024 Lab [id number] Eunice Marte 1955 M Date Provider Department [place] 02/06/[address] [place] [address] LAB RESOURCE DCC DRAW DCC Family History Problem Relation Age of Onset Heart disease Mother 58 Heart disease Maternal Grandmother Comments: heart trouble Heart disease Maternal Grandfather Comments: heart trouble Family Status - Relation Status Age at Mother Father Mother's Sister Mother's Brother Father's Sister Father's Brother Maternal Grandmother Maternal Grandfather Paternal Grandmother Paternal Grandfather Other Normal [facility] PSA, DIAGNOSTICon 02-06-2024 PROSTATE SPECIFIC AG (NG/ML) IN SER/PLAS <0.1 Low 0.4-4 [facility] Comment on above: Order Comment: To be collected in 01/2024 Performed By: #### L [id number] ####[facility] (BEAKER)[address] [place] [address] TESTOSTERONEon 02-06-2024 TESTOSTERONE (NG/DL) IN SER/PLAS 11 ng/dL Low 193-740 [facility] Comment on above: Order Comment: To be collected in 01/2024 Result Comment: Test Performed by [facility] [address], [place] [id number] - Released 02/06/2024 22:51 Performed By: #### L [id number] #### [facility] [address] [place] [address] Telephoneon 10-31-2023 [id number] [facility] 1955 [facility] Date Provider Department [facility] 10/31/2023 OLIVER MIJARES RAD ONC DCC Family History Problem Relation Age of Onset Heart disease Mother 58 Heart disease Maternal Grandmother Comments: heart trouble Heart disease Maternal Grandfather Comments: heart trouble Family Status - Relation Status Age at Mother Father Mother's Sister Mother's Brother Father's Sister Father's Brother Maternal Grandmother Maternal Grandfather Paternal Grandmother Paternal Grandfather Other Normal [facility] MLR HEMOGLOBIN A1Con 024 Glucose [Mass/Vol] 189 mg/dL [facility] HbA1c (Bld) [Mass fraction] 8.2 % High 4.5 - 6.2 % [facility] Comment on above: ADA RECOMMENDED LIMI T 4.0 - 6.0 ADA THERAPEUTIC TARGET < 7.0 ACTION SUGGESTED > 7.0 Interpretation and review of laboratory results Abnormal [facility] Follow-Upon 09-20-2023 [facility] [id number] [facility] 1955 [facility] Date Provider Department Center 09/20/2023 PHYLLIS DANGELO ONC DCC Family History Problem Relation Age of Onset Heart disease Mother 58 Heart disease Maternal Grandmother Comments: heart trouble Heart disease Maternal Grandfather Comments: heart trouble Family Status - Relation Status Age at Mother Father Mother's Sister Mother's Brother Father's Sister Father's Brother Maternal Grandmother Maternal Grandfather Paternal Grandmother Paternal Grandfather Other Level of Service:78670 [place] OFFICE/OUTPATIENT ESTABLISHED LOW MDM 20 MIN Reason for Visit and Comments: Follow-up [665409] - 2 month follow up with PSA and testosterone prior Normal [facility] Labon 08-09-2023 Lab [id number] [facility] 1955 [facility] Date Provider Department Center 08/09/2023 [id number] LAB RESOURCE DCC DRAW [facility] Family History Problem Relation Age of Onset Heart disease Mother 58 Heart disease Maternal Grandmother Comments: heart trouble Heart disease Maternal Grandfather Comments: heart trouble Family Status - Relation Status Age at Mother Father Mother's Sister Mother's Brother Father's Sister Father's Brother Maternal Grandmother Maternal Grandfather Paternal Grandmother Paternal Grandfather Other Normal [facility] PSA, SCREENINGon 08-09-2023 PROSTATE SPECIFIC AG (NG/ML) IN SER/PLAS 0.1 ng/mL Low 0.4-4 [facility] Comment on above: Order Comment: To be collected 07/2023. Performed By: #### L [id number] #### [facility] (BEAKER) [address] [place] [address] TESTOSTERONEon 08-09-2023 TESTOSTERONE (NG/DL) IN SER/PLAS 6 ng/dL Low 220-1000 [facility] Comment on above: Order Comment: To be collected 07/2024. Result Comment: Test Performed by [facility] [address] [place], [place] [id number] - Released 08/09/2023 16:24 Performed By: #### L [id number] #### [facility] [address] [place] [address] Documentationon 06-22-2023 Documentation [id number] [facility] 1955 M Date Provider Department Center 06/22/2023 246THELMA MIXON [facility] RAD [facility]C [facility] Family History Problem Relation Age of Onset Heart disease Mother 58 Heart disease Maternal Grandmother Comments: heart trouble Heart disease Maternal Grandfather Comments: heart trouble Family Status - Relation Status Age at Mother Father Mother's Sister Mother's Brother Father's Sister Father's Brother Maternal Grandmother Maternal Grandfather Paternal Grandmother Paternal Grandfather Other [facility] Letter (Out)on 06-21-2023 Letter (Out) [id number] Eunice Marte 1955 [facility] Provider Department [place] 06/21/2023 ALTHEARITESHOLIVER DUARTE [facility] ONC [facility] Family History Problem Relation Age of Onset Heart disease Mother 58 Heart disease Maternal Grandmother Comments: heart trouble Heart disease Maternal Grandfather Comments: heart trouble Family Status - Relation Status Age at Mother Father Mother's Sister Mother's Brother Father's Sister Father's Brother Maternal Grandmother Maternal Grandfather Paternal Grandmother Paternal Grandfather Other [facility] Letter (Out)on 06-10-2023 Letter (Out) [id number] Eunice Marte 1955 [facility] Provider Department [place] 06/10/2023 None-None [facility] [place] Medical Family History Problem Relation Age of Onset Heart disease Mother 58 Heart disease Maternal Grandmother Comments: heart trouble Heart disease Maternal Grandfather Comments: heart trouble Family Status - Relation Status Age at Mother Father Mother's Sister Mother's Brother Father's Sister Father's Brother Maternal Grandmother Maternal Grandfather Paternal Grandmother Paternal Grandfather Other [facility] [id number] 06-07-2023 [id number] 06/07/2023. Patient seen in [facility]. Patients was present for the ICF discussion. Research coordinator discussed [employer] study with patient including purpose of the study, why patient is a potential patient, follow up time points and study questionnaires. Patient and verbalized understanding of study requirements and follow up schedules. Patient agreed to participate. ICF signed and signed copy given to patient. Meagan Pettit RN [facility] Follow-Upon 06-07-2023 Follow-Up [id number] Eunice Marte 1955 M Date Provider Department Center 06/07/2023 397-PHYLLIS ACOSTA [facility] ONC DCC Family History Problem Relation Age of Onset Heart disease Mother 58 Heart disease Maternal Grandmother Comments: heart trouble Heart disease Maternal Grandfather Comments: heart trouble Family Status - Relation Status Age at Mother Father Mother's Sister Mother's Brother Father's Sister Father's Brother Maternal Grandmother Maternal Grandfather Paternal Grandmother Paternal Grandfather Other Level of Service:23628 [place] OFFICE/OUTPATIENT ESTABLISHED MOD MDM 30-39 MIN Reason for Visit and Comments: Follow-up [592743] - Dexa and Labs Normal [facility] 29on 05-30-2023 29 Encounter addended by: Silvano Martinez on: 06/06/2023 10:10 AM Actions taken: Clinical Note Signed, Letter saved Normal [facility] Labon 05-25-2023 Lab [id number] Eunice Marte 1955 M Date Provider Department Center 05/25/2023 2243-[facility] LAB RESOURCE [facility] DRAW [facility] Family History Problem Relation Age of Onset Heart disease Mother 58 Heart disease Maternal Grandmother Comments: heart trouble Heart disease Maternal Grandfather Comments: heart trouble Family Status - Relation Status Age at Mother Father Mother's Sister Mother's Brother Father's Sister Father's Brother Maternal Grandmother Maternal Grandfather Paternal Grandmother Paternal Grandfather Other Normal [facility] PSA, SCREENINGon 05-25-2023 PROSTATE SPECIFIC AG (NG/ML) IN SER/PLAS 8.9 ng/mL High 0.4-4 [facility] Comment on above: Order Comment: To be collected 05/2023. Performed By: #### L [id number] #### [facility] (BEAKER) [address] [place] [address] TESTOSTERONEon 05-25-2023 TESTOSTERONE (NG/DL) IN SER/PLAS 283 ng/dL Normal 220-1000 [facility] Comment on above: Order Comment: To be collected 05/2023. Result Comment: Test Performed by [facility] [place] [address] - Released 05/25/2023 20:44 Performed By: #### L [id number] ####[facility] [id number] [place] [address] Documentationon 04-13-2023 Documentation [id number] Eunice Marte 1955 Provider Department Center 04/13/2023 Sonia-ROBB JORDAN DCC ONC [facility] Family History Problem Relation Age of Onset Heart disease Mother 58 Heart disease Maternal Grandmother Comments: heart trouble Heart disease Maternal Grandfather Comments: heart trouble Family Status - Relation Status Age at Mother Father Mother's Sister Mother's Brother Father's Sister Father's Brother Maternal Grandmother Maternal Grandfather Paternal Grandmother Paternal Grandfather Other Reason for Visit and Comments: Specialty Pharmacy Note: [facility] [Other] Normal [facility] Follow-Upon 04-12-2023 Follow-Up [id number] Eunice Marte 1955 Provider Department Center 04/12/2023 397-PHYLLIS ACOSTA [facility] ONC [facility] Family History Problem Relation Age of Onset Heart disease Mother 58 Heart disease Maternal Grandmother Comments: heart trouble Heart disease Maternal Grandfather Comments: heart trouble Family Status - Relation Status Age at Mother Father Mother's Sister Mother's Brother Father's Sister Father's Brother Maternal Grandmother Maternal Grandfather Paternal Grandmother Paternal Grandfather Other Level of Service:44749 [place] OFFICE/OUTPATIENT ESTABLISHED HIGH MDM 40-54 MIN Reason for Visit and Comments: Follow-up [096085] - Here to discuss tx plan Normal [facility] Labon 04-12-2023 Lab [id number] [facility] 1955 [facility] Provider Department Center 04/12/2023 2244-[facility] MP LAB RESOURCE DRAW Medical Pavi Family History Problem Relation Age of Onset Heart disease Mother 58 Heart disease Maternal Grandmother Comments: heart trouble Heart disease Maternal Grandfather Comments: heart trouble Family Status - Relation Status Age at Mother Father Mother's Sister Mother's Brother Father's Sister Father's Brother Maternal Grandmother Maternal Grandfather Paternal Grandmother Paternal Grandfather Other Normal [facility] PSA, SCREENINGon 04-12-2023 PROSTATE SPECIFIC AG (NG/ML) IN SER/PLAS 8.1 ng/mL High 0.4-4 [facility] Comment on above: Order Comment: To be obtained today Performed By: #### L [id number] #### [facility] (BEAKER) [address] [place] [address] TESTOSTERONEon 04-12-2023 TESTOSTERONE (NG/DL) IN SER/PLAS 205 ng/dL Low 220-1000 [facility] Comment on above: Order Comment: To be obtained today. Result Comment: Test Performed by [employer] [address] [place] [address] - Released 04/12/2023 22:43 Performed By: #### L AB124 ####[facility] [id number] [place] [address] Pathology Reporton Pathology Report [id number]# 1.00CD:127 Normal [facility] Follow-Upon 03-17-2023 Follow-Up [id number] Eunice Marte 1955 M Date Provider Department Center 03/17/2023 SAMREEN [facility]IER [facility] [place] HeartVAS Family History Problem Relation Age of Onset Heart disease Mother 58 Heart disease Maternal Grandmother Comments: heart trouble Heart disease Maternal Grandfather Comments: heart trouble Family Status - Relation Status Age at Mother Father Mother's Sister Mother's Brother Father's Sister Father's Brother Maternal Grandmother Maternal Grandfather Paternal Grandmother Paternal Grandfather Other Level of Service:05445 [place] OFFICE/OUTPATIENT ESTABLISHED MOD MDM 30-39 MIN Reason for Visit and Comments: Hypertension [290162] Pre-op Exam [875782] Normal [facility] 36on 03-09-2023 36 When can I put this pt on your schedule? Normal [facility] BASIC METABOLIC PANELon 02-19 Anion gap [Moles/Vol] 13 mmol/L Normal 7-20 [facility] Comment on above: Performed By: #### L AB15 #### [facility] (BEAKER) [address] [place] [address] Calcium [Mass/Vol] 9.7 mg/dL Normal 8.6-10.3 [facility] Comment on above: Performed By: #### L AB15 #### [facility] ([facility]) [address] [place] [address] Chloride [Moles/Vol] 101 mmol/L Normal 98-107 [facility] Comment on above: Performed By: #### L AB15 #### [facility] ([facility]) [address] [place] [address] CO2 [Moles/Vol] 28 mmol/L Normal 21-31 [facility] Comment on above: Performed By: #### L AB15 #### [facility] ([facility]) [address] [place] [address] Creatinine [Mass/Vol] 1.15 mg/dL Normal 0.70-1.30 [facility] Comment on above: Performed By: #### L AB15 #### [facility] ([facility]) [address] [place] [address] GLOMERULAR FILTRATION RATE ML/MIN/1.73 SQ M.PREDICTED 69.8 mL/min/1.73m*2 Normal >60.0 [facility] Comment on above: Result Comment: The [facility]???s estimated glomerular filtration rate (eGFR) will no [...] of individuals. Performed By: #### L AB15 #### [facility] ([facility]) [address] [place] [address] Glucose [Mass/Vol] 170 mg/dL High 70-100 [facility] Comment on above: Performed By: #### L AB15 #### [facility] (BEAKER) [address] [place] [address] Potassium [Moles/Vol] 3.9 mmol/L Normal 3.5-5.1 [facility] Comment on above: Performed By: #### L AB15 #### [facility] (BEAKER) [address] [place] [address] Sodium [Moles/Vol] 138 mmol/L Normal 136-145 [facility] Comment on above: Performed By: #### L AB15 #### [facility] (BEAKER) [address] [place] [address] Urea nitrogen [Mass/Vol] 17 mg/dL Normal 7-25 [facility] Comment on above: Performed By: #### L AB15 #### [facility] (BEAKER) [address] [place] [address] UREA NITROGEN/CREATININE (MASS RATIO) IN SER/PLAS 14.8 Normal [facility] Comment on above: Performed By: #### L AB15 #### [facility] (BEAKER) [address] [place] [address] LIPID PANELon 03-02-2023 CHOL/HDL 4.2 mg/dL Normal [facility] Comment on above: Performed By: #### L AB18 #### [facility] (BEAKER) [address] [facility] [place] [address] Cholesterol [Mass/Vol] 178 mg/dL Normal 120-200 [facility] Comment on above: Performed By: #### L AB18 #### [facility] (BEAKER) [address] [place] [address] Magnesium [Mass/Vol] 114 mg/dL Normal 40-149 [facility] Comment on above: Result Comment: TRIG LYCERIDE REFERENCE RANGE: 20 YEARS AND OLDER CARDIOVASCULAR RISK LESS THAN 150 mg/dL LOW RISK 150 TO 199 mg/dL BORDERLINE RISK 200 mg/dL AND GREATER HIGH RISK Performed By: #### L AB18 #### [facility] (BEAKER) [address] [place] [address] Magnesium [Mass/Vol] 113 mg/dL Normal 0-160 [facility] Comment on above: Performed By: #### L AB18 #### [facility] ([facility]) [address] [place] [address] Magnesium [Mass/Vol] 42 mg/dL Normal 23-92 [facility] Comment on above: Performed By: #### L AB18 #### [facility] ([facility]) [address] [place] [address] NON HDL CHOL. (LDL+VLDL) 136 Normal [facility] Comment on above: Performed By: #### L AB18 #### [facility] ([facility]) [address] [place] [address] TOTAL VLDL-C 23 mg/dL Normal 0-40 [facility] Comment on above: Performed By: #### L AB18 #### [facility] ([facility]) [address] [place] [address] Labon 03-02-2023 Lab [id number] Eunice Marte 1955 M Date Provider Department Center 03/02/2023 2245-[facility]PD LAB RESOURCE [facility]PD [place] Medical C Family History Problem Relation Age of Onset Heart disease Mother 58 Heart disease Maternal Grandmother Comments: heart trouble Heart disease Maternal Grandfather Comments: heart trouble Family Status - Relation Status Age at Mother Father Mother's Sister Mother's Brother Father's Sister Father's Brother Maternal Grandmother Maternal Grandfather Paternal Grandmother Paternal Grandfather Other Normal [facility] 36on 02-25-2023 36 You said at discharg e at last visit to schedule with you in 2 wks. Can I put him on your schedule for the ? Normal [facility] Telephoneon 02-25-2023 Telephone [id number] Eunice Marte 1955 M Date Provider Department Center 02/25/2023 Randolph-SMAREEN VEE [facility] [place] [facility] Family History Problem Relation Age of Onset Heart disease Mother 58 Heart disease Maternal Grandmother Comments: heart trouble Heart disease Maternal Grandfather Comments: heart trouble Family Status - Relation Status Age at Mother Father Mother's Sister Mother's Brother Father's Sister Father's Brother Maternal Grandmother Maternal Grandfather Paternal Grandmother Paternal Grandfather Other Normal [facility] Office Visiton 02-23-2023 Follow-up visit [id number] Eunice Marte 1955 M Date Provider Department Center 02/23/2023 SAMREEN [facility] [place] [facility] Family History Problem Relation Age of Onset Heart disease Mother 58 Heart disease Maternal Grandmother Comments: heart trouble Heart disease Maternal Grandfather Comments: heart trouble Family Status - Relation Status Age at Mother Father Mother's Sister Mother's Brother Father's Sister Father's Brother Maternal Grandmother Maternal Grandfather Paternal Grandmother Paternal Grandfather Other Level of Service:45086 [place] OFFICE/OUTPATIENT ESTABLISHED MOD [facility] 30-39 MIN Reason for Visit and Comments: Follow-up [602087] - Echo and stress test. Pt is here for prostate surgery clearance Normal [facility] Urology Office/Clinic Noteon 02-03-2023 Urology Office/Clinic Note Chief Complaint Pt is here for 3 month f/u HPI Staff Eunice is a 67 y.o. male here for 3 month follow up. Previous DX: Prostate Cancer, BPH, Nocturia, ED. *Oxybutynin 5mg QD & Myrbetriq 50mg QD therapy. Pt referred to to [place] for Retzius sparing prostatectomy. Pt saw Dr Valdemar Ramos 11/30/22 for consultation., then saw Dr [...] Unsure why seen by 2 Urologists at [facility], notes were reviewed Urology consult Dr. Valdemar Ramos [facility] 11/30/22. Urology oncology consult Dr. Phyllis Aocsta [facility] 12/07/22 - plans for RALP pending [...] prostatectomy/IPP infectio (more content not included)... Normal [facility] Comment on above: Result Comment: Elec tronically Signed By: Dewey COTTO, Milvia Lucia\.br\Date and Time Signed: 02/02/23 23:04 EDT\.br\Electronically Co-Signed By: Gifty Mann\.br\Date and Time Co-Signed: 02/02/23 10:37 EDT Ambulatory Visit Summaryon 0 02-02-2023 Ambulatory Visit Summary EUNICE MARTE :1955 Visit Date:02/02/2023 Ambulatory Visit Instructions Your [...] Following Appointments Follow Up with Dewey COTTO, ARIAN Alegria, URO When: Where: Medications What How Much [...] bladder) ALLISON (more content not included)... Normal [facility] Patient Educationon 02-03-20 Patient Education Oncology Prostate Cancer The prostate [...] under a microscope. This is called the Gilbert score and the total score can range from 6?10, indicating how likely it is that the cancer will spread (metastasize) to other parts of the body. The higher the score, the greater the likelihood that the cancer will spread. ? Gilbert 6 or lower: This indicates that the cancer cells look similar to normal prostate cells (well differentiated). ? Florence 7: This indicates that the cancer cells look somewhat similar to normal prostate cells (moderately differentiated). ? Florence 8, 9, or 10: This indicates that [...] external be (more content not included)... Normal [facility] Provider Letteron 02-02-2023 Provider Letter February 02, 2023 [facility] [address] [place] [id number] : 1955 To Whom It May Concern, Please excuse above patient from work. Date of Appointments: From: 02/02/2023 To: _ May Return to Work On:02/03/2023 Restrictions: none Comments: [facility] is with patient for all appointments, any question, please call our office Sincerely, [facility] [address] [facility], [place] [address] [facility] Screenson 02-02-2023 Screens [id number]# 1.00CD:127 [facility] Screens [id number]# 1.00CD:127 [facility] Consultation Noteon 02-02-20 Consultation Note [id number]#1 .00CD:127 [facility] Consultation Noteon 12-09-19 Consultation Note [id number] .00CD:127 [facility] Ambulatory Visit Summaryon 0 11-03-2022 Ambulatory Visit Summary EUNICE MARTE :1955 Visit Date:11/03/2022 Ambulatory Visit Instructions Your Diagnosis Prostate cancer Enlarged prostate with urinary obstruction Nocturia Erectile dysfunction Tests Performed Urnls Dip Stick Auto w/o Microscopy POC 26987 Your Care Team Attending Physician - Dewey [...] to do next Scheduled Follow-Up Appointments Tuesday 10:15 AM EDT With: Milvia Palomo MD Where: [facility] Patient Educationon 11-04-19 Patient Education Oncology Prostate Cancer The prostate [...] Are older than age 65. ? Are -Bhutanese. ? Are obese. ? Have a family [...] Follow these instructions at home: ? Take lgfz-tyq-rtupfwk and prescription medicines only as told by [...] cancer specialis (more content not included)... Normal [facility] Urology Office/Clinic Noteon 11-03-2022 Urology Office/Clinic [...] and history for this patient from Dr. aPlomo. I have reviewed and verified the staff [...] - 8.2 & 5.0% -Prior TRUS/Bx by [facility] 08/2020 was negative -MRI prostate 05/26/22 - [...] wks recommended if proceeding Was referred to [facility] for retzius sparing prostatectomy consult, has yet to be contacted. Pt still wants to procedure with surgical intervention over radiation. Follow up 2-3 mos or sooner if needed. Pt understands and agrees with plan. -contact [facility], will call pt with update. Pt to call our office if they do not hear from [facility] in 2-3 wks 2. Enlarged prostate [...] -overall health Follow-up With When Contact Information Milvia Palomo MD, URL, URO (more content not included)... Normal [facility] Comment on above: Result Comment: Elec tronically Signed By: Milvia Palomo MD\.br\Date and Time Signed: 11/03/22 08:40 EDT\.br\Electronically Co-Signed By: Gifyt Mann\.br\Date and Time Co-Signed: 11/03/22 08:35 EDT [facility] 10-26-2022 Lab Reports [id number] .00CD:127 Normal [facility] PSA, FREE AND TOTAL RATIOon 10-26-2022 % Free PSA 5.0 % Normal [facility] Comment on above: Result Comment: The table [...] Performed By: #### P TT, PT #### [facility] [address] [address] [address] Marcell Luque Prostate specific Ag [Mass/Vol] 8.2 ng/mL Critically high 0.0-4.0 [facility] Comment on above: Result Comment: Anamika DENIS methodology. . According to the [place] [employer], Serum PSA should decrease and [...] Performed By: #### P TT, PT #### [facility] [address] [address] [address] Marcell Luque PSA, Free 0.41 ng/mL Normal N/A [facility] Comment on above: Result Comment: Anamika robb ECLIA methodology. Performed By: #### P TT, PT #### [facility] [address] [address] [address] Marcell Luque Auth for Release of Medical Recordson 10-25-2022 Auth for Release of Medical Records [id number] .00CD:127 Normal [facility] [place] 10-11-2022 Screens [id number] #1.00CD:127 Normal [facility] Screens [id number] .00CD:127 Normal [facility] Ambulatory Visit Summaryon 0 10-06-2022 Ambulatory Visit Summary EUNICE MARTE :1955 Visit Date:10/06/2022 Ambulatory Visit Instructions Your Diagnosis Prostate cancer BPH with urinary obstruction Nocturia Erectile dysfunction Tests Performed Urnls Dip Stick Auto w/o Microscopy POC 98995 Your Care Team Attending Physician - Milvia [...] to do next Scheduled Follow-Up Appointments Tuesday 10:10 AM EDT With: Dewey COTTO, Milvia Lucia Where: [facility] Patient Educationon 10-06-19 23 Patient Education Obstetrics [...] 07/25/2013 Document Revised: 03/28/2019 Document Reviewed: 03/28/2019 [employer] Patient Education ? 2020 [employer]. Oncology Brachytherapy for Prostate Cancer Brachytherapy for [...] including vitamins, herbs, eye drops, creams, and wewk-zpy-rksuuwl medicines. ? Any problems you or family [...] drinks that c (more content not included)... Normal [facility] Provider Letteron 10-06-2022 Provider Letter October 06, 2022 EUNICE MARTE [address] [place] [address] EUNICE MARTE 1955 To Whom It May Concern, Please excuse above patient from work. Date of Appointment: From: 10/06/2022 To: May Return to Work On:10/06/2022 Restrictions: Comments: Any questions, please call our office. Sincerely, [facility] [address] [place] [address] [facility] Urology Office/Clinic Noteon 10-06-2022 Urology Office/Clinic [...] Hx IPP > 10 yrs ago in [place]. No prior abd surgeries. Hx L5 fusion, [...] sparing RALP given IPP -PSA level -practice Kegels (educational sheet provided) 2. BPH with urinary [...] Gifty Dean (more content not included)... Normal [facility] Comment on above: Result Comment: Elec tronically Signed By: Milvia Palomo MD\.br\Date and Time Signed: 10/06/22 08:48 EST\.br\Electronically Co-Signed By: Gifty Mann\.br\Date and Time Co-Signed: 10/06/22 08:37 EST [facility] 09-27-2022 Lab Reports [id number] .00CD:127 Normal [facility] Reference Lab Reporton 09-27 Reference Lab Report [id number] .00CD:127 Normal [facility] Consultation Noteon 09-24-19 Consultation Note [id number] .00CD:127 Normal [facility] RAD - Pet Scan Reporton RAD - Pet Scan Report [id number] .00CD:127 Normal [facility] Formson 09-10-2022 Forms [id number]#1 .00CD:127 Normal [facility] RAD - CT Reporton 08-20-[address] RAD - CT Report [id number]#1 .00CD:127 Normal [facility] Lab Reportson 08-09-2022 Lab Reports [id number]#1 .00CD:127 Normal [facility] CREATININEon 08-06-2022 Creatinine [Mass/Vol] 0.99 mg/dL Normal 0.70-1.30 [facility] Comment on above: Performed By: #### C MATI #### [facility] [address] [place] [address] Dr. Marcell Luque EGFR-AF SERBIAN >60 Normal >=60 [facility] Comment on above: Performed By: #### C MATI #### [facility] [address] [place] [address] Dr. Marcell Luque EGFR-NON AF SERBIAN >60 Normal >=60 [facility] Comment on above: Performed By: #### C MATI #### [facility] [address] [place] [address] ABD/PELV W CONon 08-06-[address] ABD/PELV W CON EXAMINATION: CT ABD/PELV [...] by: SUELLEN MAYO Date: 2022-08-06 16:00 Normal [facility] Physician Orderon 08-05-2022 Physician Order [id number]#1 .00CD:127 Normal [facility] Screenson 08-05-2022 Screens [id number]#1 .00CD:127 Normal [facility] Screens [id number]#1 .00CD:127 Normal [facility] Patient Educationon 08-04-20 Patient Education Oncology [...] including vitamins, herbs, eye drops, creams, and svnt-jbg-rqsgrtk medicines. ? Any problems you or family [...] You w (more content not included)... Normal [facility] Provider Letteron 08-04-2022 Provider Letter August 04, 2022 EUNICE MARTE [address] [place] [address] EUNICE MARTE 1955 To Whom It May Concern, Please excuse above patient from work. Date of Illness: From: 08/04/2022 To: 08/04/2022 May Return to Work On: Restrictions: _ Comments: Sincerely, [facility] [address] [place] [address] Normal [facility] Urology Office/Clinic Noteon 08-04-2022 Urology Office/Clinic [...] lymph node dissection. I showed him the [facility] calculator which estimate his risk of organ [...] Discussed effects of tx on ED Orders: [facility] External Ambulatory Referral Follow-up With When Contact Information Dewey COTTO, Milvia Lucia, URL, URO Within 1 month Additional Instructions: Discuss PSMA PET scan & treatment options Patient Education Brachytherapy for Prostate Cancer IGood (more content not included)... Normal [facility] Comment on above: Result Comment: Elec tronically Signed By: Milvia Palomo MD\.br\Date and Time Signed: 08/04/22 10:53 EST Reminderson 08-03-2022 Reminders - From: Lulu Peralta LPN To: [facility] - Clinical; Sent: 08/03/2022 14:08:01 EST Show up: 06/20/2032 07:00:00 EDT Subject: colonoscopy recall Due Date/Time: 07/21/2032 07:00:00 EST Reminder/Recall Patient is due for screening colonoscopy 07/21/2032. Normal [facility] Auth for Release of Medical Recordson 07-29-2022 Auth for Release of Medical Records [id number]#1 .00CD:127 Normal [facility] Pathology Noteon 07-26-2022 Pathology Note [id number]#1 .00CD:127 Normal [facility] Outside Colonoscopyon 2021 Outside Colonoscopy [id number]#1 .00CD:127 Normal [facility] Lab Reportson 07-19-2022 Lab Reports [id number]#1 .00CD:127 Normal [facility] Covid-19 PCR ([facility]on 06-23 SARS-CoV-2 (COVID-19) RNA NISHANT+probe Ql (Unsp spec) Not detected Normal NOT DETECTED [facility] Comment on above: Result Comment: When diagnostic [...] for this test is supported by the [place] of Health and Human Service's declaration that [...] Performed By: #### P TT, PT #### [facility] [address] [place] [address] Dr. Marcell Luque IntraOperative Documentson 1 09-11-2021 IntraOperative Documents [id number]# 1.00CD:127 Normal [facility] Coding Summary.on 07-09-2022 Coding Summary. CD:[id number]:[id number] G h0bWw+PGhlYWQ+LW9ZOYN rU31qpGNvhY7DU9kLXQ9F GACSUERUZT8TUV1djYZ5Y UhvB3LjmwEf ClrbqDEaYR28TRj6JGE3o KtbOUkxmB1rdXHnQ1u0He PeIG67lR59VRglMEHjUpC 3LjZpbjsgbWFy F8zmWqEzjCLzXcv+PHRhY mxlIHdpZHRoPScxMDAlJy BclNckGH0hSw5mOOSaRVI vbGxhcHNlOiBj z5uxCOVpNLbuLQ4utLxpF 5BtaRV3WCUys7y5Ig15cB I+EOVwKCF1aUvbEDosp52 3HgCxf5tjLBV8 eURmMPdlEVL7A95lb7X3C KOdJGWxXMV8dJN5fU0ndN gfpwslR6RqpZXpVoA7FLG 0zCRyhT9zdHjo lxztmR5cJkx+X30BTI0LS JUECM4WYvp5N7QiQtpkpD I+UP57HOLjEV58cNSboNY rw6ezdZw3WlFz QXOhADN3kLisFXddl6NwB BRsG17wwQPfm6I4LMCxeG pgyMIeAfKegOT2eF0kWTe arogyd0nwiklt Cdyxw4goap37fR03E11oN KovNWAsEFT1WPNvHDIuvF eopo3tqP3bLo2+IKoie8q bv3zuvTj7DnUq AQCwpiGvsEciKPZ5o1EvR b67L9RrmDriu4PqFhr4kj 37jPZfz4T4mTP0ZCmkIOT vgG4hTAvvOyX4 FYJcIqGdpV12gVUfNKovU c4vtNmzdBsnBV4aCIQnmu qsTQXtoI2pOUSmtTXioAl uVK7xOYJibdxt a121MwYuSIU5BCIqxLKuF 8AawX6pNwCkWSIfGYUfM3 KmoLSgQSqxV471HTsbSlX 3OCVcmlUfE4Sp GAFvqHuxZgS6m2F7Eh6Sv 2AhzrowPTQ7TAxyFRQuDp I0WvGfUdP4F6FmHut5WXG jgSeqGV1bT0Od BGJhosiljkkiaOU5CHGdW WDvzI20pUHoHVfcTs0ju1 A0y354AHNfWLTedT75Hu2 udDogMTBwdCBU wW5rqblos6vjecrjUcGxA WRlADe7JBr4BBKpiGymZk UcWQR3XpS1IHP6dGCxoC2 snUtlxmeorZ3j Oyc+I53leB2cTAL0HFI8t txfHNSnhoMzOR24WA19Q0 RyPjwvdGFibGU+PGRpdiB xiHrrHT5kBbTq i2ksi0QcXKkgN3HvDIUsJ ElhXrc0YOQcJLP3qRS5oX 7wLZEpXRozd4R9eXL1P0Y jeySfoz1iv0ob ZUUbATunY19fuDWjw9G1F FDvxKN9UQDhgYajNbZzgZ 93Oyc+CWNaaEpjb6QoYwd ll9kyv5cqgWi8 ZdYsYZUzniXmpYncRTM4n 1OnUc51B09uQOylGTMvEF GaYXEmLGFgxVsvds1pnL5 wIi8+PGNvbCB3 kHA7vA8mSKZhZvE9OGeuJ 739LtQprLDrBahda2tkp2 eisUv4OfFjDSMwmyGokRl kXQF8n0SyOk14 C22zVSypACOvJBHfLLWtA SPgkVfzxg1bfV9aIk4+PC 1tp0iwoj80aX04yGO+PHR aBMB7mRsqJTdh XWXvwI3bGOakDaT8RISmA gTlrY45nMDaDSleHc9qlP ukwLqrCD6pJWKlaxdic76 1AtRex9bhFJAk vBIdAByoJAY9U03tf1A6N HJzVKNqDVH9vND9jV4ixI lnbjogbGVmdDsgdmVydGl bWQkcRSpsK801 IHRvcDsnPlBhdGllbnQgT tBqBEx6K0YjFvw7SGUqfO vyOS5qoEVwTNyiAx3oxCn adEbbYP7kCFWr fklli696OhEkx3baGVLtw DOuJXcfVUT0H61gs2Q9QK EfWEScLZZ1yER2rT1lpFg nbjogbGVmdDsg oyZyqExdDEviUKhiI193O HRvcDsnPkJpcnRoIERhdG L3LZ85CP15dTYkc3H9hNH 3X2DrUGPmfuth opietBM0FOLzYKPsiO29W x6dzUjvWp8bRHGuGUW3PC MblDDfK5VciY3sWyLiSNN aOMVdB6DyiCGg RHvuP278SXdlHaP6YLYmo uGyV4RtNATzkOcvKyB6a7 N6Js5MP4N9PA53EH34mUT yw9L0cAS4M3Tc FZNoclctdnobuGP3AAToR AYzyG79Ck0rqIllXp8oWU RgWIZ7HITvuNRqF6SqpB1 yOiAjMDAwMDAw G5KkyZGaYVviL485SLddK hR4OCKkdgNwG6XdWONqiH abJcD9a9K7Ue5AFRz5HC3 6SZ92vCQiz2I0 pDE2T9PwVPJpomebwwcey IQ7YCEuGGBnmK05Wk1ocL rpYq0hHJFhAHY4USUrlUJ mK4RecY8sFjGe CQYlBIOdQ4GvjTOwZEfrA 654BRwgZbI7JPUexiZhP2 MqNSUikHuoVdN8z7W1Yl3 AQVWwNP86NEN2 mYT0QI54SS77X2IhTddbm GFibGU+PHRhYmxlIHdpZH RoPScxMDAlJyBzdHlsZT0 iSh9zMZVyUJDt vIkijNPkDkHqi2quELGlV ZzyUY5hvLxbJ4WajJK1LG Fis6g1Hk63T58eS7UpdUT +TUWhfKW9dKY7 eD1uMrZpZxT5IFjqJ870E rNjzWMjGnzpm2pmf2ofiL l5NzL8OOJsfrJpiVfyPRC 0i6ChEt69A92e IHdpZHRoPSIxNSUiIHZhb Qtjyh8pxZ1kEj2+PGNvbC R9dXU2oQ1lJqVzYmF3SVw iO855CgHweZSi Dqcic3oyg5dffJb2KwCiQ PFsftSdeGkkLVW4j4YsRo 84G2GxuIisd5EhNir3lu2 9tNNgc6Y0lAZ7 G2DpXRRljgkjaVWfrQzlS P4cUIIxnkhoRNMmnL4sPO BbQ4j6ZtPgHxR6XCttB2L lfqS9PWPjaUZh AKuiQIM8U34lu7E6YZNqN OQoGMS8gPJ3wP4lrFslut ogbGVmdDsgdmVydGljYWw yUHvfT546GDEe xWtqWWVlhL8gZXKaqZZis DxzMD9fRECngloaJvmURF RFTEJVUkcsIEpBTUVTIFI 6M3GkMwy3XAKi uRxqBU0dyVFpPDaaZu1pl NfyjOazPG4iJHXscfirZA IjoY5cRDIzqFIfqIboCA1 jVQCtonrcb918 IzGiCHJ8VBKedRRwQ2Bii G8fInVqZUFlPYGvI4QqqM HmAKeeC152TQwoSeU5YUE umuRbU3KnXYKr aCxwZfG3l1V6It3uEw8tQ D1pDYC4VH09XA42dOKih2 R6nLQ0I7AcWWGutapudvp ufKY6GVDnCEPi uX01pCDqWNaqCd6gz7N9n 894HWTeXNEhtH11Mr8khL fgUENlqGODmP9ddchzz3s vcjogIzAwMDAw UOj6MKa0OKCyuTouAlUqQ VQ8OtZ4BHS1nUHgmS3dtL gyepoxiO9bObq+NjYgWWV sfcW8T0YnVww9 XEChyKavRD0ihCElATdtG e5riNqgdTgnUL9tOHOjpr koUHIudE6xVIThyDHsaEh dOT0tRYXctckp i612KoKmHON7IYFwsTVhI 6XooN9kNwBoDCBgQRCjT3 AcwRNdHVxdP470GLywJdC 3JUIukiVwK0Ku TZEgzLffYeO1z9E9Tl5GC JyzIV39DB06tBZdm6J8dE I2U5GqMZDsvxdyzyeagPI 5IFJfQLKxuU32 lIGyXXytBl5vk9Z8g579C RGlHEJbhW70An8kkUldSH KbcGZSkT5iwjgvq8lwgof gIzAwMDAwMDt0 NAk0IBRaeVsbYoWjXSP5H jJ0AQQ3zEAwrC3cgCfclq mytR9rAuc+RA2lrFtumS2 rjE7VCX3uMOLs dMWExPMsDKR4OM31UE84Q 3RyPjwvdGFibGU+PHRhYm xlIHdpZHRoPScxMDAlJyB ssVcgCJ7vKo3u ZGVyLWNvbGxhcHNlOiBjb 7zcFCPoYCvkLY3fuXqlQ5 KreNR3JOZrz7c2Vp74A56 aP4DpuSZ+PGNv fOJ7iBN5aP9aDoMjCyD8G IfdN683XkTkbMKyWscaj8 zoh1jfjSu2RxZdHPRnsqZ keMqzFNN2g5Kn Nx00K49dCZvoUULkFMZlT XUcUGTeiYmmeu9yyH6rIk 8+JAZwtKX5oMF8oZ6oDmB iNaX4VKdsM401 HyTfiNPvUaxsP78eN4Osm XA+MJNrJyx7GFYucLxsVD 1xfGVqTUkzQr7rYZX1LvC tKxBkQNaxD8Vf XLJrionphtfncLY1RXQeC RThoO86Kh7eoWyoXi1kJQ DwLJT6YQLooKKkN4LdiG2 yOiAjMDAwMDAw I0UciLSlXAvcP850BPjoO lO0OXAlidNuW9UqAEEcwU pbDqF2t6O1Bo3AgInpsIM uJZ1iWtXnASu7 E0TeOea8PZUhxTwgFG7tg MUcXNgbTk0ilKuwkLchHQ 4oNGMlamocp839CfFxn1j kIDEwcHQgVGlt LZY4U96lf0O6KMQjPDCeW XP3gFP4pA6feQdevimbvP VmdDsgdmVydGljYWwtYWx mP204FTMrzGcz XxGQKix3H6UwTnx6YUDzf OcyJK0niCTdIKsdVj9uwE fuzJxcMA2pKKLhxthms47 5RnDmy3ctEGBi mUUeMNusJOB7H13us0M1P MJnCOUdZDR7tPE2iI2vhE lnbjogbGVmdDsgdmVydGl bVTneGBjdC516 YVFwsJmkMi2GLjn3O1FgM bn5NFPqxRrhQF2kzPXqJV gdYc7udUrstClxLE1bVQH glhylw595PuHu w9qgNVCcpJUrRUyhZQA0S 12hw3N0TDRvPMGsQKL1tA D9wE9zgAqcdvegsYFuxFe gdmVydGljYWwt SXhdZ659BLCrkNzhJuTpx WVyOjwvdGQ+HH45hy05C8 RlHyhhXnt4MUUlIZF4wLP 9jW0fBSGiTIse c3R5 (more content not included)... Normal [facility] Main OR Intraoperative Recor don 07-09-2022 Main OR Intraoperative Record IntraOp Document Type FT Summary Primary Physician: Milvia Palomo MD Finalized Date/Time: 07/09/22 13:38:52 Pt. Name: EUNICE MARTE Quinton Delvalle/Sex: 1955 Male Med Rec #: [id number] Physician: Milvia Palomo MD Financial #: [id number] Pt. Type: A Room/Bed: [place] [address] Admit/Disch: 07/06/22 10:08:27 - 07/06/22 17:20:00 Institution: [...] BIOPSY WITH ULTRA(.) Comments Last Modified By: June Pandey RN, RN, June Parsons RN 07/06/22 15:47:47 07/06/22 15:47:47 07/06/22 15:47:47 Entry 4 Entry 5 Case Attendee Erik Lynn RN, June Chiang Role Performed Lead Relay Tester - Primary Lead Relay Tester - Primary Time In 07/06/22 14:55:00 07/06/22 14:55:00 Time Out 07/06/22 15:17:00 07/06/22 15:47:00 Procedure PROSTATE TRANSPERINEAL PROSTATE TRANSPERINEAL BIOPSY WITH ULTRA(.) BIOPSY WITH ULTRA(.) Comments ORIENTING PRECEPTING Last Modified By: June Pandey RN, RN, Kimberly Y 07/06/22 15:47:47 07/06/22 15:47:47 General Comments: PADMINI WILSON - FORTEC REP. Quinton RUIZ - PERINEOLOGIC REP. JOSEPH, computed tomography technician Protocols FT Pre-Care Text: Implements protective measures [...] (If Applicable) PreOp Antibiotic Yes Time Out Adams Blanco DO, Scout Given Participants GDewey MD, Milvia Lucia, Sunny COOMBS, Shane Bell Terry T, Barbee RN, June Chiang Time Out Complete 07/06/22 15:08:00 Outcomes Met? [...] PROSTATE BIOPSY Primary Procedure Yes Primary Surgeon Milvia Palomo MD Start 07/06/22 15:09:00 Stop 07/06/22 15:41:00 Anesthesia [...] and tissue Entry 1 Skin Integrity Intact, Parkman, Warm, and Skin Abnormality No Dry Outcomes Met? Yes Last Modified By: Erik Lynn 07/06/22 15:10:56 Post-Care Text: The patient is free from signs and symptoms of injury caused by extraneous objects Patient Positioning FT Pre-Care Text: Identifies physical alterations that require additional precautions for procedure-specific positioning, verifies presence of pr (more content not included)... Normal [facility] Postoperative Documentson Postoperative Documents [id number]#1 .00CD:127 Normal [facility] Coding Summary.on 07-07-2022 Coding Summary. CD:[id number] G h0bWw+PGhlYWQ+JK5BCBV fI93ceMEneM2IC6zVUR8L GPCKSYODLC5QOV9hrDE9I QlrX2CkozDh XcavfCCdVM13YOg1HUX6h YxoSMcdvW0xuIJdN2j3Ek RjGO57eQ59ZOeqARBvVvE 3LjZpbjsgbWFy F8fnJvJwgZTtPml+PHRhY mxlIHdpZHRoPScxMDAlJy OrqSfcUP0hWh4eHOXgQUK vbGxhcHNlOiBj s6neOIUiHKfpKR7trQusH 2FjzWM5KIPvf7v2Wm55sT I+BYPvOAD2zJqrYFjuz18 5MfJux9xqHSQ6 wWMjECjxYIG3M31ch8G8C VHkOOPhNKT5fHJ8qJ2yfN zecvyaR3PdpYZeSpK8QOT 8pMLamQ1eiFli jauzzJ5qKjc+R41PNL4FT YYFES9EIcx4X9EfCfirbV I+ZD04ZAFjVE71qKSivLD dd2mhrUm5YdBn VLUnYMK5mSocJUvoj4QmX WCuM04iyKLyy4X0DINieA drpEYuBsPqyDO6xI2fSDu zhuscg3fulinm Juspv5cvrf61nI78W32oV HcxIOHiCZN6DGLuFXJppI ltgx3vmE3cPp5+FJnkl9v un0jmbAw8UvMc BFVwylOfjZvmJTP7e1OsS o34A2SsxNusk7DiUgn9ax 11hLUjj9Z1nAR2UNvkCLY fbN3rBHfnRoH8 AAYjNbMjbA54rROxXHmzF i6jiSwfsMrkTQ4kHUVsgk sxAPMbcV6zCBWdfPVsnPh iCZ2kYBUoatcg s596UlGxYEC0OUJtnGAxX 8LkvL0mAbHcGUNdEMQrS1 JzzECbTFwyH261RIbbMcP 6TPXngqIsN6Th HSQpzDngDvI0q0B8Ou1Vg 9NeunhkSGO9XQpmWDNcCp Z8AwUbAvW9R3GfXfu6HRE caYikIR8yX9Kb WYRopqaezwfgcBX0LUAwS SDbdH83dDBjKQwdOk1cu8 E2g470EVNuSQNoyJ10Nx4 udDogMTBwdCBU uF1kqlsae7oqqukzHeRoH KRkFZn2SJj2IPNvwKabZy XoCKL5DwH0AFF1pTEtjU0 gjOvsdbaqfT6f Oyc+W05loX0cOZO7NMZ9b miqDFCamvGdET65HK74B3 RyPjwvdGFibGU+PGRpdiB ceAdmVF2wNnTm a4jcg3GzHUqxW6GwURQjZ JafOcz2KMOuBNA7aOE0oW 3fEIJhWBmab2X9oBW2K3Z ozhPijj4ns0oq WIFpJCbxT39oeRNyg2L5W VHlqGH0ICZriWfkEvFvxS 93Oyc+QKOmtZjzz9OjYzg xs8lsg8xozHc0 CvFjGHIiroEpkUpwIXD4e 5VvNh25Z32pRHisJSIoND IbZMQdCIXtrGcuyf4fnW1 wIi8+PGNvbCB3 nNZ4sB3hJWMjLgH1TLjhU 497MaHjjNRkYzqub9cae5 kjbKr8ViZyJVKwayDjgUy oTHL6x3ObWp19 L53qEWuzCCFuWUJhHLZrA QCenVfslr9iaV6vZh9+PC 1ui0tyih52kA81lXX+PHR hNID8gGuqXYux SICxrD8jWGooEnC6JZVyP nKqyV01iNHwJMulHp4nqV zdfFpeRP1tBDQesnoiz14 8CwUjc8efOHHy cUCnBKctNAE3K52cy2Z9L BHyQGKyLFG5iSE8nR1snN lnbjogbGVmdDsgdmVydGl tSOgjNAqnL816 IHRvcDsnPlBhdGllbnQgT sIfFUg3Z9WqMwf8MHBkoQ vkBV0skYYhTQonEb1swGg wzUfqGX4nJUOl plpqp499WyHbh3ctQCZqh YNkCJqbPWY0P32uo9M3IA IhYPHrTBZ1pCV1yT7umEk nbjogbGVmdDsg seEffTijYTebMWyjR950Y HRvcDsnPkJpcnRoIERhdG H0XT92EN86bWUpx3Q0vOW 2N8KiCYXjeyzy wrzjcPH3AKRjMPEmuW96B l2gqZndKg1fGIXvCVW1TP JkqMLwY1LbxD6uAdLiCIX oSQGnX0YicDMr SNwjE127VKjpIzC3OAGjx yUjU3XjZBQnuMpeUbT9a0 U5Fq4OY8E9PM38YF43wYA jd3A9wQS1S2Wl EMBypxdwthmqyFG8CRWkN VHswT34Ac8esGvwQh4jWH BoRXN0JROrsZBjS3TulS1 yOiAjMDAwMDAw B9WweHThNVcpB910SRkpW dI9KIWssqMaB7SjHFVepH nfDnY8e2O0Ko7CDCc8BF8 8AD67rGEiz2I0 nTS0Y2EvVKRxxjcdgvmqh NM5JXQrAEWbvK84Bq2nlZ poEp0vLXLfQIJ4GEOhnEY sW8RxfV5hDoDz ISOnGIUmW4UwwTLmPPuwM 749OMcdDdW9JSRsitLeO4 UtGIQzsUffKkF3j0N1Au7 KHHLbFO26DEK0 oED6NV19SU96G9LoRxufv GFibGU+PHRhYmxlIHdpZH RoPScxMDAlJyBzdHlsZT0 dRx9zUTPxNMRb tLsspCTzLbNyd2sdHHPrY AwtVS8vhHpgI2BbiCA8WF Mgr2z8Bt52G90gI2ZzeRL +SDWjtIF8bQP4 nU4fHxRgRjD3UBvwW775L xVkuVDfQzvsr0yqh5uchV d7ZeJ4OZSenqBfnSwlTCY 2s8WdFv40V19d IHdpZHRoPSIxNSUiIHZhb Ldyho4paF2eLi6+PGNvbC T4wQU0cD8uLgCbVyF7JGp dD838IwQlmTPe Tufbn4qrs2cjoEo2BaDlN CZccmKewFllBIP0f9BhPa 07O3WcaPcki5IgLmk2xb5 0cOMez9T1mOU3 M3XbGXUkshntmHBcvPxuQ J6dOTPgcihyDBUtjI0tRI HwY5v6KsWnDtW7LCxuW2U anzA5VSNsaYFk YIyuOCP7Q50lz1A7HQXbI TMkFXA8jBH5aQ6fyWwust ogbGVmdDsgdmVydGljYWw bZWoqY122SUEm eAenNQGxsT2jZYPdpPJzr TpdAA3gEYAbpczyJtqVHB RFTEJVUkcsIEpBTUVTIFI 5T1UzDtd4WIMr gZyjXU4brVLtRUciUl4iz AeluOdgUH5pLHElozdtGU AdiL7eOIBbiVPorYzjKN7 jPPKjxntiz695 LkIjZDF1CVVtdVJcW9Xlb Z6yLjReOUPxCVAcR0VdyP MzIYawQ031HLzxPbP8GZS gbaTeT2JjETCm sVyjTjJ0u9U8Ri3rXu6jE Z9cTAO4FD72CE41hFMfp5 L5nHV6X7WqEXHebrkksvu ywZB3ZJAzUBYk pM42wZXyEEuwTn1vw3F7q 853KVDzRTLmjP74Sw0gzA whNYDgjSLUwI6guqnci4s vcjogIzAwMDAw YBl3RXe8LAYoiSgqOrHdA YL2NkJ6DXF1cXNncN8rcU iszobvbI6bXfv+NjYgWWV uxvF3K4CvHlo4 YQLqtGfhFJ2wkBDyDZaoH p7myYsnjBhdHF2jUOHppe edFRTcjR8rYGCrjLBshOz eSK9zOVPntudn j319WjUcQIZ8PKXxgREaA 5SrvU1fLyVyKRShQHIgP5 IcxDNzJFbuQ755EFcbLyT 1INCzkqMnN9Hf CYYohFqfQgG2o0Y1Ix8SY ZgxED68LK98eBBff1Y7gL Y0F8OzOTBuiayrjrxtsPW 6ENMeCHOrfS13 kCTbYZlcLj1tz3B3m723O HMjYNZfpG95Ci4thBvqAN FhvYAMkO9ebrape5jrrpp gIzAwMDAwMDt0 DUj6VDEzxEufMnPcSIR0K bZ4VSH0hUWirM6vuUvfwx tobN7mTym+K9P0kZU5iTD udDwvdGQ+PC90 vh71R0FmYmesBsp3DOEbB PQ0pTY6iX5uQXLvLQsyj8 Y7bEM8G7BnbkMryj2zd7i cPVYgWQrkP26y cJYcp4Z9IEUucPI8DGQfz MocXmRaxR64Gkr+PGNvbG kes2HzThwov2dyq9mavDi 9IjMwJSIgdmFs kZbpWNQ9c4RgJo51K25qK HdpZHRoPSIzMCUiIHZhbG xdzq3rmI5nPi5+PGNvbCB 4qGS0sU3uWwRa UiH5MIwrR444CtDopVYeD xrau0sww9oqwMl7QeSzMX OvyxDerYuhOFX7e2SkPs8 5R9EtlQctw5Sn Ybq3id22kCWts0W4tMG7B 3BhZGRpbmctbGVmdDogMC 3iOTDdkdxkHLWudF4oABO yK4x3XkXoRwY6 ETzfM2CrbuH5BEFwaWNeB EHyhHBGsB5psfgme4bzvl xqFtMgLKSjTAn4LFs7ZUF saWduOiBsZWZ0 XlJ8HUU1jDVseX4txUwjm vuafL1vHrm+HWl8z2hdvG FgFG9imVO7HR83YX29xZG rk5L4wZS9G0He SDIouwvwixyinMO2RMQnQ LDqvP04Cq0xtWneSx8yHL NmFAQ4ZKVmjOZgK9BzlQ3 yOiAjMDAwMDAw Y7FbtEVcTJebW113QLchG cY0TTIzzoTwF6PbCKNftF hnQwH6r9W4Jc6MEQ88IF1 3BK52iHGfc9Q4 rLX9T7MaOTJkadabnmubr FK4EOHxDFKqhD10Re6mcW qmZg4oLQBkPKF1SCTkhOY vB1GerL7cWvLd QJHdBZLkI9EsaJNnVFznO 226DNmwPoH8QHZevsEqW2 QaIKGpvZobDiK3a6X6Kq3 NIp77ZF39YE69 lDVyt7Z6zXI2J0MaIWKln uujovxdyMD3PJCwUEFyuD 16Wb8zfNxjRk5wZXUvXNN 7IHZjoCHkW0Za jA1oOrUrPIBsTDCtZ0Iem CTjSJizO747ZBolDbU7UN ArimViL9ThLZFdaVpcXtF 6u4X0Dv9LEAxj emh9M8RqYxjcwZW+PC90Y QPfMH80rTYfsLRdj3aclV g8WxWzAMWwMRK1mPibDPu dw1YoXYAcW90y bGFw (more content not included)... Normal [facility] Consent for Anesthesiaon Consent for Anesthesia [id number]# 1.00CD:127 Normal [facility] Consent for Procedure/Surger yon 07-07-2022 Consent for Procedure/Surgery [id number]# 1.00CD:127 Normal [facility] Discharge Instructionson Discharge Instructions [id number]# 1.00CD:127 Normal [facility] IntraOperative Documentson 1 09-06-2021 IntraOperative Documents [id number]# 1.00CD:127 Normal [facility] IntraOperative Documents [id number]# 1.00CD:127 Normal [facility] Preoperative Documentson Preoperative Documents [id number]# 1.00CD:127 Normal [facility] Preoperative Documents [id number]# 1.00CD:127 Normal [facility] Prescriptions/Work Noteson 09-06-2021 Prescriptions/Work Notes [id number]# 1.00CD:127 Normal [facility] Capillary Glucose POCon 06-22 Glucose [Mass/Vol] 216 mg/dL High 55-99 [facility] Comment on above: Result Comment: Jluis SANTANA Performed By: #### 2 [id number] ####[facility] [address] [place] [address] Glucose [Mass/Vol] 233 mg/dL High 55-99 [facility] Comment on above: Result Comment: Jluis SANTANA Performed By: #### 2 [id number] ####[facility] [address] [place] [address] Glucose Cap <20 Abnormal 55-99 [facility] Comment on above: Result Comment: Repe at Test Performed By: #### 2 [id number] ####[facility] [address] [place] [address] Consent for Treatmenton 06-22 Consent for Treatment [id number]#1 .00CD:127 Normal [facility] H&P Updateon 07-06-2022 H&P Update [id number]#1 .00CD:127 Normal [facility] Inpatient Patient Summaryon 07-06-2022 Inpatient Patient Summary [address] [address] [facility] Clinical Discharge Instructions PERSON INFORMATION Name: EUNICE MARTE [facility]#:[id number] PHYSICIANS Admitting Physician: Milvia Palomo MD Attending [...] Address: When: Milvia Palomo [address] [place] [address] [phone] Business (1) [address] [place] [address], [address] [address] [phone] Business (1) Comments: Office to followup appointment in 2 weeks for pathology review Type Location Start Finish [facility]30 AM 07/21/2022 9:45 AM Confirmed [facility] Office Visit [facility] [place] 10/12/2022 10:30 AM 10/12/2022 10:45 AM Confirmed [...] needed Other (see comment)., skin Comment: Normal [facility] Laboratory - Chemistry and C hemistry - challengeOrdered By: Lab Amira on 07-06-2022 Glucose [Mass/Vol] 216 mg/dL High 55 - 99 mg/dL [facility] C POC Subsection Comment on above: Result Comment: Noti jeremy [employer]/ Glucose [Mass/Vol] 233 mg/dL High 55 - 99 mg/dL [facility] C POC Subsection Comment on above: Result Comment: Jluis luna RN/ Glucose [Mass/Vol] mg/dL Invalid Interpretation Code 55 - 99 mg/dL [facility] POC Subsection Comment on above: Result Comment: Repe at Test Main OR PACU I Recordon 06-22 Main OR PACU I Record PACU Phase I Docum ent Type FT Summary Primary Physician: Milvia Palomo MD Finalized Date/Time: 07/06/22 16:28:27 Pt. Name: EUNICE MARTE /Sex: 1955 Male Med Rec #: [id number] Physician: Milvia Palomo MD Financial #: [id number] Pt. Type: A Room/Bed: [place] [address] Admit/Disch: 07/06/22 10:08:27 - Institution: Case Times [...] I Outcomes Met? Yes Last Modified By: Rachel STEEL, Chen 07/06/22 16:28:19 Post-Care Text: The patient demonstrates [...] By: Chen Ramos RN 07/06/22 16:28 Normal [facility] Main OR PACU II Recordon Main OR PACU II Record PACU Phase II Document Type FT Summary Primary Physician: Milvia Palomo MD Finalized Date/Time: 07/06/22 17:20:35 Pt. Name: EUNICE MARTE Quinton Iniguez./Sex: 1955 Male Med Rec #: [id number] Physician: Milvia Palomo MD Financial #: [id number] Pt. Type: A Room/Bed: [place] [address] Admit/Disch: 07/06/22 10:08:27 - Institution: Case Times [...] Signed By: Yissel Arellano RN 07/06/22 17:20 Normal [facility] Main OR Preoperative Recordo n 07-06-2022 Main OR Preoperative Record PreOp Document Type FT Summary Primary Physician: Milvia Palomo MD Finalized Date/Time: 07/06/22 15:10:00 Pt. Name: SHANIQUAEUNICE NOVAK/Sex: 1955 Male Med Rec #: [id number] Physician: Milvia Palomo MD Financial #: [id number] Pt. Type: Room/Bed: [place] [address] Admit/Disch: 07/06/22 10:08:27 - Institution: Case Times [...] Signed By: Erik Lynn 07/06/22 15:10 Normal [facility] Monitor Recordon 07-06-2022 Monitor Record [id number]# 1.00CD:127 Normal [facility] No Panel InformationOrdered By: Balaji Amira on 07-06-2022 POC Device SN [id number] Invalid Interpretation Code FT POC Subsection POC User ID [id number] Invalid Interpretation Code [facility] POC Subsection POC [employer] [place] Invalid Interpretation Code FT POC Subsection POC Device SN [id number] Invalid Interpretation Code FT POC Subsection POC User ID [id number] Invalid Interpretation Code [facility] POC Subsection POC [employer] [place] Invalid Interpretation Code FT POC Subsection POC Device SN [id number] Invalid Interpretation Code FT POC Subsection POC User ID [id number] Invalid Interpretation Code FT POC Subsection POC [employer] [place] Invalid Interpretation Code FT POC Subsection Operative Reporton 2 Operative Report [...] perineum is prepped with Betadine solution. The [employer] Uro[employer] fusion biopsy system was set up [...] . Impression and Plan Diagnosis Elevated PSA (FIA90-TF R97.20, Discharge, Medical). Diagnosis Elevated PSA (NLK99-XA R97.20, Discharge, Medical). Counseled: Patient, Family. Normal [facility] Comment on above: Result Comment: Elec tronically Signed By: Milvia Palomo MD\.br\Date and Time Signed: 07/06/22 16:17 EST Outpatient Surgery Discharge Instructionon 07-06-2022 Outpatient Surgery Discharge Instruction [place] [id number] Patient Discharge Instructions PERSON INFORMATION Name: EUNICE MARTE Date of : 1955 Current Date: 07/06/2022 15:49:28 PHYSICIANS Admitting Physician: Milvia Palomo MD Discharge Diagnosis: Elevated PSA EUNICE MARTE has been given the following list of [...] Address: When: Milvia Palomo [address] [place] [address] [phone] Business (1) [address], [facility] [address] [place] [address] [phone] Business (1) Comments: Office to followup appointment in 2 weeks for pathology review Type Location Start Finish State [facility] Office Visit [facility] [place] 07/21/2022 9:30 AM 07/21/2022 9:45 AM Confirmed [facility] Office Visit [facility]30 AM 10/12/2022 10:45 AM Confirmed Pharmacy Information: You may receive a survey from [employer] asking you to rate your care experience. Your feedback is important and will help us understand what we do well and how we can improve the quality of care we provide to you, your loved ones and our community. It?s an honor to serve you. Thank you for choosing [facility] HERE ARE THE MEDICATION CHANGES THAT OCCURRED [...] gone. Tylenol alte (more content not included)... [facility] Patient Education - Texton 1 09-05-2021 Patient [...] for your post-operative appointment in 1-2 weeks [phone] or [phone] [facility] Progress Note-Nurseon 2021 Progress Note-Nurse In discharge [...] is out of the anesthesia guideline protocol. Normal [facility] Progress Note-Physicianon Progress Note-Physician Patient: EUNICE MARTE Age: 66 years Sex: Male : 1955 Associated Diagnoses: None Author: Scout Lamas Jr., DO Postoperative Information Post Operative Note: Post Anesthesia Care Unit. Anesthetic utilized: General. Health Status Allergies: Allergic Reactions (Selected) Moderate Penicillin- Unknown. Severity Not Documented Labetalol- Unknown (origin). Problem list: All Problems Abdominal pain, LLQ / SNOMED CT 791647542 / Confirmed Asthma / SNOMED CT 105251416 / Confirmed BMI 31.0-31.9,adult / SNOMED CT 855601801 / Confirmed BPH with elevated PSA / SNOMED CT 602793646 / Confirmed BPH with urinary obstruction / SNOMED CT 0049840872 / Confirmed CKD (chronic kidney disease), stage III / SNOMED CT 3469948553 / Confirmed Depression / SNOMED CT 12848893 / Confirmed Diabetes / SNOMED CT 904312247 / Confirmed Dyshidrotic eczema / SNOMED CT 479987851 / Confirmed Elevated PSA / SNOMED CT 3181605793 / Confirmed Eosinophilia / SNOMED CT 6510767786 / Confirmed Erectile dysfunction / SNOMED CT 0640028301 / Confirmed GERD (gastroesophageal reflux disease) / SNOMED CT 245899685 / Confirmed Hyperlipemia / SNOMED CT 15055826 / Confirmed Hypertension / SNOMED CT 2686099116 / Confirmed Incontinence of urine / SNOMED CT 5784043292 / Confirmed 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 Plan Transfer/ Discharge: Condition stable. Normal [facility] Comment on above: Result Comment: Elec [...] Daily, # 30 tab(s), Refills(s) 6, Pharmacy: [facility] 1429, 183, cm, 04/21/22 11:40:00 [...] 0 Histories Past Medical History: Resolved Stroke (273255602): Resolved. History of CVA (cerebrovascular accident) (2816313491): Resolved. History of DVT (deep vein thrombosis) (8586330259): Resolved. Family History: Diabetes mellitus Mother Sister Hypertension Mother Sister Father Diabetes mellitus type 2 Mother Hyperlipidemia Mother CAD - Coronary artery disease Father Mother Procedure history: Transrectal biopsy of prostate using ultrasound (US) guidance (2058453226) on 09/08/2020 at 64 Years. Colonoscopy (958449165) in 2011 at 55 Years. Arthroplasty of knee (21199196). Arthroscopy of shoulder (430252754). Insertion of catheter into spinal canal for infusion of therapeutic substance (6015935830). Lumbar discectomy (551277901). Comments: 06/25/2022 15:29 EDT - Lulu Peralta LPN L4-5 CE - Cataract extraction ([id number]). Social History Social & Psychosocial Habits Alcohol 06/25/2022 Use: Current Type: Beer Frequency: Daily Substance Abuse 06/25/2022 Risk Assessment: Denies Substance Abuse Tobacco 06/25/2022 Tobacco Use: Former smoker, quit more Smokeless tobacco use: Never (more content not included)... Normal [facility] Comment on above: Result Comment: Elec tronically Signed By: Scout Lamas Jr., DO\.br\Date and Time Signed: 07/06/22 14:09 EST Outside Radiologyon 07-05-20 Outside Radiology [id number] 0 [id number]# 1.00CD:127 Normal [facility] Coding Summary.on 07-02-2022 Coding Summary. CD:[id number] G h0bWw+PGhlYWQ+HT9CIAB jE07fxXWtpX9DN4oIQE5D MTNQANFNJX0FBZ5aaKI4R UaqB5BflbIr WfldoGOhVD61EBl6FUE4p ZwmNPragO8qvGAoF9w5Gj XvFL50vR59DNqrMSCoFbQ 3LjZpbjsgbWFy K8rnCoMspAAzIah+PHRhY mxlIHdpZHRoPScxMDAlJy ChzXfiAH3eIk8vIZKgZBL vbGxhcHNlOiBj d1taDWZfSGooLQ1ogNazS 2LusBY6VXEgy0g6Hf25pB I+XQNpTJP5nPcwQIjnu23 2IwIqi9ouAQD3 iMHjVTyiYVX3L74va9P9S AVeYVYjFFV1rTD6tE0nrX pjxsfcX0WoiPSkJsU5WTA 4bUQtlG6mpAgh wdqbiX3hXuv+U67LAQ9KU BHGUL6AFxd9P1JzBjyscC I+DG64NJPbUT70oCFsfFB jy5xmqMg6RtXf WPNhKOO7pWhpNLosc5LlU SKkS73uaXPrh4T1NEJftV clyXIhMwFleEX3vH0hWNg jjzrrg8epziff Lkidb3sicm49dL25R53mN ZcuVOIbGZQ7YRRmEOFmqE uxoa9epS2dQc6+JJrhf8k wx2hsoDp3BzFl GFFctuMbqWxcZZE5p0VvV y52N0IvcPjot5WjZqs9iw 43qRYlv1P0uAJ0ZJuhECG avT1pFXhqOxB9 LRAiZfWihD04nTIsCXfzY g6dlLqicXzdAH5lEDZxch hpLSLdlG6nKFUuuJPpxJk aPZ2sQMYzfcac r755CzTgWUY6MQRqgDOoO 2TkiR6bSjVwSHLjNMGvM2 HkkKXbNOfoQ484JPjpLcM 0USMtrvToS8Cq NCQbyPkaBdA3n9G6Hl9Qs 0NhlwjePKD3ABrsFKBzQg YlLgHjSxZ0O5KhCzy0ZMF faUbzXN0wS7Jr VGYlcnuequzwwPL0MWWoO XFznV09hLFuEHsuVe8ql6 L3p433UGCaXDVpsN03Kj0 udDogMTBwdCBU uE4lduyap2iiatbqNvCtT NTjBIn9NBm0QDOgdQhwEd MnNZW5LrX6EQV6kLKzzL6 spFtvhuhdkK7u Oyc+F17riC5bPUT2KXM4y zolVSFwsqDiOX15HL70F9 RyPjwvdGFibGU+PGRpdiB nuKqnTF8gCwOt o9bfn1GaWPwuM0SxVUFnW LwtWuk5LJFtJZT5sSP2eF 2wPGBjLIegw9V9zTW7D1N qeqXesq6rs6jq SVKpALfxL92hfFXbr8P1F QHrfKR2RHKceZcwZuGfqV 93Oyc+AZIfnSywi8BnYpi mq8qah4qqhFm3 ShFcOJTsekTxtDbtQQC6u 4LwXl66G09wAUgkGUOxTT QyLOKlLXIrsJcxgu2biS0 wIi8+PGNvbCB3 kGC0sR5bEGRfWoX4CAvjE 045FyYzzOBfTkitb5gaa1 aykNh6VfPeWQGonhMlvZo dIYH7y6PuHl48 V47qHCknZZHtVWEyLQZrB CJibWryiw4oxN5vEh5+PC 7ut1glkv60lI72uIV+PHR rQPE3sUdcXMyd LHFjkL7sQSvrTpU5CJPkR bOtsH28yNFbNMelCg4zsY mmhJciRE0jAIIwxgzpg40 7MbTia9zoTPRg dYZeKEkgRHW7E30ms7I6C UEtACUzWXB5tJB8oH9vtW lnbjogbGVmdDsgdmVydGl hRGwsGOgbO978 IHRvcDsnPlBhdGllbnQgT cSoPSb3H7UiQnq0TVKsmP acTC2agNIcNDtnKh2zaRe xvVylPE8qDFSx xmvsh527MtWag4gwBMDnd MRyUZwtLTO5R26gt1Z9FY QnQTSzTMT7jGP8iG7msQp nbjogbGVmdDsg wnZktOfcHDbyENttN528Z HRvcDsnPkJpcnRoIERhdG R3NP47WB75qEMgr7S8jNR 4J4FtTVBwbljw pfcbmRY5UAEpEZMhiR60Z r5jgRbiDr3uYPFiTTK5JT WcyLXqD1VcoI3rVgMwXIK fUJTeX6PtuWGa KMgeQ372LGyoKeZ0ONLuq rMoF6VxYSJacCvmYxA6r2 Y3Xm6KD6Z5HI87QO67dYC cm0K1hSJ2M0Rh WIPatfyrdbpjnUN2MGFrA IFsaB06Cg0anGdrWy4uMQ LbZOJ4JKXllCGpJ6HqqN3 yOiAjMDAwMDAw F0JsbOQjBUggK895JXbfV qT3BLUjfqVqV9KnTPRxzY piZnU7s8W8Dv9HEVy7RC2 4ZY90qIRdg0K3 cCV4Z2LvWTVsdctokozwf XB5KHVeALWpbO69Kk5qrP ftTb1sFOVwPUM3UWQmsQH xL8JdxU7xIiZl HGLzACMlI6HbjFNfPJypP 600OHggPlA8VHOeqrCdB2 SdLQCixUaiNwH2e2Z5Fk2 RWLWaAE10RWA5 fMP6VW57UJ46F6UmTyxma GFibGU+PHRhYmxlIHdpZH RoPScxMDAlJyBzdHlsZT0 bIv6vNCEeXSXf nVdzmMFkXvQas4hqUESkJ OdnBP4wrZihE0MroHG7MY Rjr0v6Ze32I85eT3IgdCU +HWUhuEZ9xTP9 aS1lFpApOhF9OCazO748X dSacJXaNkopm7tvs2qddS b0CiQ8AQQnopZahMmwWGX 1f9OkIt19Q75g IHdpZHRoPSIxNSUiIHZhb Ongdm5csU3zWd2+PGNvbC K9kYK3nK6vUcRcXmZ0EDw nM744PaGyrGOl Sxlsq7yvn0vccTm1UeTzB EOehjMopQluPHU7g9PuGj 65N4VlaPmhf0UgBmh5oc4 4gKCsv4O3aCB0 E2PhENMmblfilWUxnQygB R0nKCIpggmdCUGodG6wZN WaZ9v9SkOjMrM3UMizN0V dvhP6HRWraTJd MAeaOHY3J35sd6Y7ZQMeT DNhTUY3rGY8aL8ctFpnts ogbGVmdDsgdmVydGljYWw zCWbyQ556FMYb cLygGECvnU3aNYZhpZTge OkgBN5hDCPoklrwXunCKT RFTEJVUkcsIEpBTUVTIFI 6N9AjQsm2KFGm wIrwZS1usLNsJKvgCg1mj AwhvIinYO5yGADalpodGB MkyC3xEWPogPVkhVrmOD2 bIOGqswtyw691 RlGzQZC2BHCtnPVmW3Jkf Y5zPpPsKTDlKRLyZ9FkzR VuLZhsB659WGqfOvI5YNZ mkhLhC6VpRMSl dAogFrF9v9H9Bp8aRz6nQ B0nLIJ8DM68SE25bKBgt2 J6aEK0V5WqJVOfjdoumno gbQY1FPPjNDLz zQ72sMNdHRdlBw7wt2I8h 558HEVdBOQyfS02Pw9mvS zpUCDkgPXKgI9mmytax4p vcjogIzAwMDAw GNx8ZLy7TRXpiPdoNpJhS WG3DvE4YNA5qAWgrO3kqF rfnoqvdM5vZgv+NjYgWWV yjpQ5I7JtVom9 BUAyuWbvPE9lhFDaNUvmP n3wzYbrmKnvUX8dWOGmca wcGDHozX7yDHSwfTTmtYq oGF7sJIGeuyiz t773EwJiHAI6IDUzrOXmJ 4YqnS9lJlOlTZIkOHYkE2 VkbRBeZVueL660GBdnDoO 9QEDumyKbU9Mn GYSofXuyYmD9r0G7Hu9QN AyfHW87ZF29yOZbg1E1eO Z9V5RzVEGbiauhdjlsnYR 6XAMqTVXkgX36 xQHtFBsyBr2xs7Q2c563Q CImDUXijV21Aj2pkNiiNI QhpOUNxK9kwxysc7pdmdn gIzAwMDAwMDt0 IYr4USCiuNncZaAhRMF4B gY2CFH7xJGprL0gyMcixg ektL9jQle+UmVjdXJyaW5 gTM08GH51P8Bl PjwvdGFibGU+PHRhYmxlI HdpZHRoPScxMDAlJyBzdH ghNW1cKs1sLQGnEJRvdDq ctCByRvXvk6bc QDSnLBvuUM0vmCwaY4Guq SK3DOAzu8g8Gj53B43dA3 JvdXA+YVChrTF5gRA6kC5 dAeAcSzK4SVbh D325SsWbcDHcRutxc9dff 6yhoOw6DzZzFVAluaWfyO fiGLA5p4GpRa11O80mYTn pZHRoPSIyMCUi GEPwfXjbif4nuP9oAi4+P UVmdKX9vRP9hZ6nNgTkXz C1RBljJ878QlMcyUZbVvg nP48lR8TwxPW+ XYBvEmu5PYIprAnlMR9uj ESnUJroWn9wQIV3XcWjKt DfZXmbU3AqPLOqgzoivrs glKC4IPCsJZAx zL59Kq5fdJnpFm3vGCWkM QJ2OCKabXNeL4IopD2sBk CwYCIkEFCjS0HppJUgSJm dL727QXadYeQ9 XWJownJhO8KcUIBzbIymZ xB9m7B4Ip8McUvqqKPmXH 7nGvYsMEc5B2JuTbt3LWA coNxkSR3qvBHk VWtfNq7tmKyxtFosEC7eM MXbgwjxp480JtVho9ysTO XtiACzKKxqGFF1D63vl1L 8TTWzKESaKBV5 qRJ3fQ2ecRftticcrGZja DsgdmVydGljYWwtYWxpZ2 31IMBvtWnhQxCRMjd3Z8Q uAbu0VTUxpRnr AA3sjCQgWNmfAx1ejYrrx KyvIO9iARQxciush147Gb Wwo4dwFPMqfBQsIQxnKPG 1V08ro2F0DBGk ATCuUWJ0xLG7qQ9rmExiv jogbGVmdDsgdmVydGljYW ohAUmnB571WPLvpRymMq1 WOgz1P8UkMec5 WWIwnRusVO0ulZDbWUcpV x7icJujvYvaMS7dYKAcul lpd607WvLte7piJNAjaNM pLWdoQVN7A73i k5V1ZDHvCOGuJWA7pDR8s S0qvQshuskmpAQyqOgzoc DuvUthSFypEXqeV897FXD vcDsnPlBheWVy OjwvdGQ+DQ87ib46L6GoM fooEpu6BQYkUYC2uUE4yR 7dQUSlBTblz4P2jTO0U1S wkaQeyj6ci4zf YXBz (more content not included)... [facility] Auto Diffon 06-30-2022 Basophils/100 WBC (Bld) 2.7 % High 0.0-2.0 [facility] Comment on above: Order Comment: Order Added by Discern Expert. Performed By: #### 2 053407, 96592218, 1246817, 9490653, 47868286 #### [facility] [address] [place] [address] Basophils/Leukocytes Auto (Bld) [Pure # fraction] 0.2 E9/L Normal 0.0-0.2 [facility] Comment on above: Order Comment: Order Added by Discern Expert. Performed By: #### 2 501173, 78010897, 6769764, 9312763, 40776746 #### [facility] [address] [place] [address] Eosinophils/100 WBC (Bld) 7.5 % Normal 0.0-8.0 [facility] Comment on above: Order Comment: Order Added by Discern Expert. Performed By: #### 2 498075, 22497694, 7423600, 4962519, 84466372 #### [facility] [address] [place] [address] Eosinophils/Leukocyte s Auto (Bld) [Pure # fraction] 0.5 E9/L Normal 0.0-0.5 [facility] Comment on above: Order Comment: Order Added by Discern Expert. Performed By: #### 2 065852, 20069151, 9107808, 4833932, 99956736 #### [facility] [address] [place] [address] Lymphocytes/100 WBC (Bld) 35.7 % Normal 14.0-50.0 [facility] Comment on above: Order Comment: Order Added by Discern Expert. Performed By: #### 2 616035, 68068468, 8302421, 0006646, 84463929 #### [facility] [address] [place] [address] Lymphocytes/Leukocyte s Auto (Bld) [Pure # fraction] 2.3 E9/L Normal 1.0-4.0 [facility] Comment on above: Order Comment: Order Added by Discern Expert. Performed By: #### 2 633650, 51700714, 4782143, 8178784, 95950586 #### [facility] [address] [place] [address] Monocytes/100 WBC (Bld) 7.0 % Normal 4.0-14.0 [facility] Comment on above: Order Comment: Order Added by Discern Expert. Performed By: #### 2 178569, 67902790, 4103591, 3409593, 05058570 #### [facility] [address] [place] [address] Monocytes/Leukocytes Auto (Bld) [Pure # fraction] 0.5 E9/L Normal 0.2-1.0 [facility] Comment on above: Order Comment: Order Added by Discern Expert. Performed By: #### 2 168745, 73294813, 0852603, 4059872, 65199262 #### [facility] [address] [place] [address] Neutrophils/100 WBC (Bld) 47.1 % Normal 36.0-75.0 [facility] Comment on above: Order Comment: Order Added by Discern Expert. Performed By: #### 2 272122, 59657617, 2442380, 6274195, 95633964 #### [facility] [address] [place] [address] Neutrophils/Leukocyte s Auto (Bld) [Pure # fraction] 3.1 E9/L Normal 2.0-7.5 [facility] Comment on above: Order Comment: Order Added by Discern Expert. Performed By: #### 2 695742, 30457688, 2414142, 5162858, 36832052 #### [facility] [address] [place] [address] BMPon 06-30-2022 Anion gap [Moles/Vol] 13 mmol/L Normal 6-16 [facility] Comment on above: Performed By: #### 2 365915, 47181891, 8548484, 9971093, 27299683 #### [facility] [address] [place] [address] Calcium [Mass/Vol] 9.4 mg/dL Normal 8.9-11.1 [facility] Comment on above: Performed By: #### 2 538448, 51635435, 9267438, 5835559, 01171585 #### [facility] [address] [place] [address] Chloride [Moles/Vol] 99 mmol/L Low 101-111 [facility] Comment on above: Performed By: #### 2 634532, 02322573, 9560701, 1949860, 50765748 #### [facility] [address] [place] [address] CO2 [Moles/Vol] 25 mmol/L Normal 21-31 [facility] Comment on above: Performed By: #### 2 960569, 77786884, 1013906, 7193913, 46546937 #### [facility] [address] [place] [address] Creatinine [Mass/Vol] 1.0 mg/dL Normal 0.5-1.3 [facility] Comment on above: Performed By: #### 2 751600, 17565575, 1457703, 7381478, 77439003 #### [facility] [address] [place] [address] Glucose [Mass/Vol] 241 mg/dL High 55-199 [facility] Comment on above: Result Comment: If t his glucose result represents a fasting glucose, interpretation should refer to the following reference range: 55-99 mg/dL Performed By: #### 2 677164, 65089944, 7239509, 8602639, 07578701 #### [facility] [address] [place] [address] Potassium [Moles/Vol] 3.7 mmol/L Normal 3.5-5.3 [facility] Comment on above: Performed By: #### 2 880854, 12029102, 8266696, 4398323, 46108652 #### [facility] [address] [place] [address] Sodium [Moles/Vol] 133 mmol/L Low 135-145 [facility] Comment on above: Performed By: #### 2 549336, 30682650, 1555656, 9624810, 31417248 #### [facility] [address] [place] [address] Urea nitrogen [Mass/Vol] 12 mg/dL Normal 5-21 [facility] Comment on above: Performed By: #### 2 800282, 28078152, 2139842, 4282440, 23063041 #### [facility] [address] [place], [place] [address] Urea nitrogen/Creatinine [Mass ratio] 12 No Units Normal 10-20 [facility] Comment on above: Performed By: #### 2 116832, 02037645, 4976033, 8273249, 57519618 #### [facility] [address] [place] [address] CBC w/ Auto Diffon Erythrocyte distribution width (RBC) [Ratio] 14.0 % Normal 10.9-14.2 [facility] Comment on above: Performed By: #### 2 627118, 14037374, 2909946, 9726931, 33548283 #### [facility] [address] [place] [address] Hematocrit (Bld) [Volume fraction] 40.8 % Normal 37.7-49.0 [facility] Comment on above: Performed By: #### 2 319476, 44036361, 7695773, 8098407, 19601757 #### [facility] [address] [place] [address] Hemoglobin (Bld) [Mass/Vol] 13.9 g/dL Normal 13.5-17.5 [facility] Comment on above: Performed By: #### 2 582997, 86745735, 2707880, 1885356, 26348775 #### [facility] [address] [place] [address] MCH (RBC) [Entitic mass] 27.9 pg Normal 27.0-34.0 [facility] Comment on above: Performed By: #### 2 203232, 13832694, 5344881, 9202294, 56094347 #### [facility] [address] [place] [address]165 MCHC (RBC) [Mass/Vol] 34.1 g/dL Normal 31.4-36.0 [facility] Comment on above: Performed By: #### 2 680949, 68088862, 2790601, 0706983, 21046908 #### [facility] [address] [place] [address] MCV (RBC) [Entitic vol] 81.8 fL Normal 80.0-100.0 [facility] Comment on above: Performed By: #### 2 240377, 78285832, 5656526, 1361875, 96561282 #### [facility] [address] [place] [address] Platelet mean volume (Bld) [Entitic vol] 8.3 fL Normal 6.4-10.8 [facility] Comment on above: Performed By: #### 2 766776, 12766122, 4611518, 5934750, 87945278 #### [facility] [address] [place] [address] Platelets (Bld) [#/Vol] 191.0 E9/L Normal 150.0-500.0 [facility] Comment on above: Performed By: #### 2 807792, 90857464, 0586141, 6261076, 55984276 #### [facility] [address] [place] [address] RBC (Bld) [#/Vol] 5.0 E12/L Normal 4.3-5.9 [facility] Comment on above: Performed By: #### 2 788229, 05372676, 8818127, 6098359, 14119594 #### [facility] [address] [place] [address] WBC corrected for nucl RBC Auto (Bld) [#/Vol] 6.5 E9/L Normal 4.0-11.0 [facility] Comment on above: Performed By: #### 2 821966, 20095744, 4220486, 9565143, 68648334 #### [facility] [address] [place] [address] CHEMISTRYOrdered By: SYSTEM SYSTEM on 06-30-2022 Anion gap [Moles/Vol] 13 mmol/L Normal 6 - 16 mEq/L [facility] Calcium [Mass/Vol] 9.4 mg/dL Normal 8.9 - 11. 1 mg/dL [facility] Chloride [Moles/Vol] 99 mmol/L Low 101 - 1 11 mmol/L [facility] CO2 [Moles/Vol] 25 mmol/L Normal 21 - 31 mmol/L [facility] Creatinine [Mass/Vol] 1.0 mg/dL Normal 0.5 - 1.3 mg/dL [facility] GFR/1.73 sq M.predicted among blacks MDRD (S/P/Bld) [Vol rate/Area] mL/min/1.73 m2 Normal >=59mL/min/1.7 3 m2 [facility] Chem S GFR/1.73 sq M.predicted among non-blacks MDRD (S/P/Bld) [Vol rate/Area] mL/min/1.73 m2 Normal >=59mL/min/1.7 3 m2 [facility] Chem S Glucose [Mass/Vol] 241 mg/dL High 55 - 199 mg/dL [facility] Potassium [Moles/Vol] 3.7 mmol/L Normal 3.5 - 5.3 mmol/L [facility] Sodium [Moles/Vol] 133 mmol/L Low 135 - 145 mmol/L [facility] Urea nitrogen [Mass/Vol] 12 mg/dL Normal 5 - 21 mg/dL [facility] Urea nitrogen/Creatinine [Mass ratio] 12 mg/mg Normal 10 - 20 [facility] COAGULATIONOrdered By: Khalida Khalil on 06-30-2022 aPTT Coag (PPP) [Time] 33.6 s Normal 25.1 - 36.5 second(s) [facility] Auto Coag INR Coag (PPP) [Relative time] 1.1 {INR} Invalid Interpretation Code [facility] Auto Coag PT Coag (PPP) [Time] 11.8 s Normal 9.4 - 1 2.5 second(s) [facility] Auto Coag Consent for Treatmenton Consent for Treatment [id number]#1 .00CD:127 Normal [facility] Consent for Treatment [id number]# 1.00CD:127 Normal [facility] HEMATOLOGYOrdered By: SYSTEM SYSTEM on 06-30-2022 Basophils/100 WBC (Bld) 2.7 % High 0.0 - 2.0 % [facility] HemeAutoSS Basophils/Leukocytes Auto (Bld) [Pure # fraction] 0.2 E9/L Normal 0.0 - 0.2 E9/L [facility] HemeAutoSS Eosinophils/100 WBC (Bld) 7.5 % Normal 0.0 - 8.0 % [facility] HemeAutoSS Eosinophils/Leukocyte s Auto (Bld) [Pure # [...] 3.1 E9/L Normal 2.0 - 7.5 E9/L [facility] HemeAutoSS HEMATOLOGYOrdered By: Rosanna Dulce on 06-30-2022 Erythrocyte distribution width (RBC) [Ratio] 14.0 % Normal 10.9 - 14.2 % [facility] Hematocrit (Bld) [Volume fraction] 40.8 % Normal 37.7 - 49.0 % [facility] Hemoglobin (Bld) [Mass/Vol] 13.9 g/dL Normal 13.5 - 17.5 gm/dL [facility] MCH (RBC) [Entitic mass] 27.9 pg Normal 27.0 - 34.0 pg [facility] MCHC (RBC) [Mass/Vol] 34.1 g/dL Normal 31.4 - 36.0 gm/dL [facility] MCV (RBC) [Entitic vol] 81.8 fL Normal 80.0 - 100.0 fL [facility] Platelet mean volume (Bld) [Entitic vol] 8.3 fL Normal 6.4 - 10.8 fL [facility] Platelets (Bld) [#/Vol] 191.0 E9/L Normal 150.0 - 500.0 E9/L [facility] RBC (Bld) [#/Vol] 5.0 E12/L Normal 4.3 - 5.9 E12/L [facility] WBC corrected for nucl RBC Auto (Bld) [#/Vol] 6.5 E9/L Normal 4.0 - 11.0 E9/L [facility] PT & PTTon 06-30-2022 aPTT Coag (PPP) [Time] 33.6 second(s) Normal 25.1-36.5 [facility] Comment on above: Result Comment: Para meter 15 days - 4 weeks 1 - 5 months 6 - 11 months 1 - 5 years 6 - 10 years 11 - 17 years PTT Mean: 35.4 (27.6-45.6) Mean: 33.5 (24.8-40.7) Mean: 32.4 (25.1-40.7) Mean: 31.6 (24.0-39.2) Mean: 31.6 (26.9-38.7) Mean: 31.0 (24.6-38.4) Pediatric Reference ranges were obtained from a study by jenn Narvaez al. prepared from 1437 samples obtained at 7 different centers using the same coagulation reagent and instrumentation as [facility]. Currently there are no coagulation studies available worldwide for children to 14 days, and no normal ranges. Heparin therapeutic range (represented by Anti-Factor Xa activity of 0.2 - 0.4 U/mL) corresponds to PTT of 56.6 - 109.0 sec. Performed By: #### 2 [id number], [id number], [id number], [id number], [id number] #### [facility] [address] [place] [address] INR Coag (PPP) [Relative time] 1.1 {INR} Invalid Interpretation Code [facility] Comment on above: Result Comment: INR results are specifically intended to assess patients stabilized on long-term Anticoagulation therapy suggested INR?s ?Less Intensive Anticoagulation? 2.0 ? 3.0 Conventional Range 3.0 ? 4.5 Performed By: #### 2 [id number], [id number], [id number] #### [facility] [address] [place] [address] PT Coag (PPP) [Time] 11.8 second(s) Normal 9.4-12.5 [facility] Comment on above: Result Comment: 15 [...] the same coagulation reagent and instrumentation as [facility]. Currently there are no coagulation studies available worldwide for children to 14 days, and no normal ranges. Performed By: #### 2 [id number], [id number], [id number], [id number], [id number] #### [facility] [address] [place] [address] UA With Cult Reflexon 2021 Bilirubin Ql (U) Negative Normal Negative [facility] Comment on above: Performed By: #### 1 [id number] ####[facility] [address] [place] [id number] Clarity (U) CLEAR Normal Clear [facility] Comment on above: Performed By: #### 1 [id number] ####[address] [address] Color (U) YELLOW Normal Yellow [facility] Comment on above: Performed By: #### 1 [id number] ####[address] [address] Epithelial cells.squamous LM.HPF (Urine sed) [#/Area] 0-2 Normal 0-2 [facility] Comment on above: Performed By: #### 1 [id number] ####[facility] [address] [place] [id number] Glucose Test strip (U) [Mass/Vol] 1+ Abnormal Negative [facility] Comment on above: Performed By: #### 1 [id number] ####[facility] [address] [place] [address] Hemoglobin Ql (U) TRACE Abnormal Negative [facility] Comment on above: Performed By: #### 1 [id number] ####[facility] [address] [place] [address] Ketones (U) [Mass/Vol] Negative Normal Negative [facility] Comment on above: Performed By: #### 1 [id number] ####[facility] [address] [place] [address] [place].plasma/Lithiu m.RBC (Bld) [Mass ratio] 4-20 Normal 0-3 [facility] Comment on above: Performed By: #### 1 [id number] ####[facility] [address] [place] [address] Nitrite Ql (U) Negative Normal Negative [facility] Comment on above: Performed By: #### 1 [id number] ####[address] [address] pH (U) 5.5 [pH] Invalid Interpretation Code 5.0-9.0 [facility] Comment on above: Performed By: #### 1 [id number] ####[address] [address] Protein (U) [Mass/Vol] Negative Normal Negative [facility] Comment on above: Performed By: #### 1 [id number] ####[address] [address] Specific gravity (U) [Rel density] 1.025 Invalid Interpretation Code 1.005-1.030 [facility] Comment on above: Performed By: #### 1 [id number] ####[address] [address] Type of Urine collection method Clean Catch Normal [facility] Comment on above: Performed By: #### 1 [id number] ####[place] [id number] Urobilinogen Qn (U) 0.2 {Shaka'U}/dL Normal 0.0-1.0 [facility] Comment on above: Performed By: #### 1 [id number] ####[address] [address] WBC Auto Ql (U) Negative Normal Negative [facility] Comment on above: Performed By: #### 1 [id number] ####[address] [address] WBC LM.HPF (Urine sed) [#/Area] 0-5 Normal 0-5 [facility] Comment on above: Performed By: #### 1 [id number] ####[address] [address] URINALYSISOrdered By: Duglas Khalil on 06-30-2022 Bilirubin Ql (U) Negative (06/30/22 4:35 PM) Normal Negative [facility] UA Auto SS Clarity (U) Clear (06/30/22 [...] PM) Normal Negative [facility] UA Auto SS [place].plasma/Lithiu m.RBC (Bld) [Mass ratio] 4-20 /HPF Normal [...] PM) Invalid Interpretation Code 1.005 - 1.030 [facility] UA Auto SS UA Spec Desc Clean Catch (06/30/22 4:35 PM) Normal [facility] UA Auto SS Urobilinogen Qn (U) 0.0054448 {Shaka'U}/dL Normal 0.0 - 1.0 EU/dL [facility] UA Auto SS WBC Auto Ql (U) Negative (06/30/22 4:35 PM) Normal Negative [facility] UA Auto SS WBC LM.HPF (Urine sed) [#/Area] 0-5 /HPF Normal 0-5/HPF [facility] UA Auto SS XR Chest 2 Viewson 2 XR Chest 2 Views Exam Date/Time: 06/30/2022 [...] MD, V. Transcribed by: LISANDRO Technologist: VINNY Normal [facility] eGFRon 06-30-2022 GFR/1.73 sq M.predicted among blacks MDRD (S/P/Bld) [Vol rate/Area] mL/min/{1.73_m2} Normal >=59 [facility] Comment on above: Order Comment: Order added by Discern Expert. Result Comment: eGFR is race adjusted. AA=. Performed By: #### 2 [id number], [id number] ####[facility] [id number] [place] [address] GFR/1.73 sq M.predicted among non-blacks MDRD (S/P/Bld) [Vol rate/Area] mL/min/{1.73_m2} Normal >=59 [facility] Comment on above: Order Comment: Order added by Discern Expert. Result Comment: [facility] kidney disease could be indicated at eGFR's of less than 60 mL/min/1.73m2. Kidney failure is indicated at less than 15 mL/min/1.73m2. Performed By: #### 2 [id number] ####[facility] [id number] [place] [address] COVID-19 ([facility])on 06-29-2022 Performing Instrument FT Willie 2 Normal Fis [facility] Comment on above: Performed By: #### 2 [id number] ####[facility] [address] [place] [address] SARS-CoV-2 (COVID-19) RNA NISHANT+probe Ql (Resp) Not detected Normal Not Detected [facility] Comment on above: Result Comment: This test result should be correlated with clinical presentations and medical history by a healthcare provider to determine its clinical significance. This assay was performed by a reverse transcriptase real-time polymerase chain reaction (rt PCR) method on the [employer] system. This test has been authorized only [...] or revoked sooner. Performed By: #### 2 [id number] ####[place] [address] SARS-CoV-2 (COVID-19) RNA NISHANT+probe Ql (Unsp spec) Pass Normal Pass [facility] Comment on above: Performed By: #### 2 [id number] ####[place] [id number] Specimen source Nom (Unsp spec) Nasal Normal [facility] Comment on above: Performed By: #### 2 [id number] ####[address] [address] Facesheeton 06-29-2022 Facesheet [id number] 1 [id number] .00CD:127 Normal [facility] COVID-19 ([facility])on 06-28-2022 ADMITTED TO INTENSIVE CARE UNIT FOR CONDITION OF INTEREST:FIND:PT: NO Normal [facility] Comment on above: Performed By: #### 2 [id number] ####[place] [id number] EMPLOYED IN A HEALTHCARE SETTING:FIND:PT: Unknown Normal [facility] Comment on above: Performed By: #### 2 [id number] ####[place] [address] FIRST TEST FOR CONDITION OF INTEREST:FIND:PT: Unknown Normal [facility] Comment on above: Performed By: #### 2 [id number] ####[place] [address] HAS SYMPTOMS RELATED TO CONDITION OF INTEREST:FIND:PT: Unknown Normal [facility] Comment on above: Performed By: #### 2 [id number] ####[place] [address] HOSPITALIZED FOR CONDITION OF INTEREST:FIND:PT: NO Normal [facility] Comment on above: Performed By: #### 2 [id number] ####[place] [address] STATUS:FIND:PT: NO Normal [facility] Comment on above: Performed By: #### 2 [id number] ####[place] [address] RESIDES IN A [facility] CARE SETTING:FIND:PT: Unknown Normal [facility] Comment on above: Performed By: #### 2 [id number] ####[place] [address] Consent for Procedure/Surger yon 06-28-2022 Consent for Procedure/Surgery [id number] .00CD:127 Normal [facility] RAD - MISCon 06-24-2022 RAD - MISC [id number] .00CD:127 Normal [facility] XR ABD FLAT_UPon 06-15-2022 XR ABD [...] SUELLEN MAYO Date: 2022-06-15 17:03 Normal [facility] CBC AUTO DIFFon 06-07-2022 BASO # 0.1 103/ul Normal 0.0-0.1 [facility] Comment on above: Performed By: #### P TT, PT #### [facility] [address] [place] [address] Dr. Marcell Luque Basophils/100 WBC (Bld) 0.6 % Normal 0.2-2.0 [facility] Comment on above: Performed By: #### P TT, PT #### [facility] [address] [place] [address] Dr. Marcell Luque EO # 0.3 103/ul Normal 0.0-0.7 [facility] Comment on above: Performed By: #### P TT, PT #### [facility] [address] [place] [address] Dr. Marcell Luque Eosinophils/100 WBC (Bld) 3.3 % Normal 0.9-7.0 [facility] Comment on above: Performed By: #### P TT, PT #### [facility] [address] [place] [address] Dr. Marcell Luque Erythrocyte distribution width (RBC) [Ratio] 13.9 % Normal 11.0-15.0 [facility] Comment on above: Performed By: #### P TT, PT #### [facility] [address] [place] [address] Dr. Marcell Luque Hematocrit (Bld) [Volume fraction] 39.3 % Critically low 42.0-54.0 [facility] Comment on above: Performed By: #### P TT, PT #### [facility] [address] [place] [address] Dr. Marcell Luque Hemoglobin (Bld) [Mass/Vol] 12.6 g/dL Critically low 14.0-18.0 [facility] Comment on above: Performed By: #### P TT, PT #### [facility] [address] [place] [address] Dr. Marcell Luque IG # 0.02 10e3/ul Normal 0.00-0.03 [facility] Comment on above: Performed By: #### P TT, PT #### [facility] [address] [place] [address] Dr. Marcell Luque IG % 0.2 % Normal 0.0-0.5 [facility] Comment on above: Performed By: #### P TT, PT #### [facility] [address] [place] [address] Dr. Marcell Luque LYMPH # 2.4 103/ul Normal 1.2-3.8 [facility] Comment on above: Performed By: #### P TT, PT #### [facility] [address] [place] [address] Dr. Marcell Luque Lymphocytes/100 WBC (Bld) 29.6 % Normal 20.5-60.0 [facility] Comment on above: Performed By: #### P TT, PT #### [facility] [address] [place] [address] Dr. Marcell Luque MANUAL DIFF REQ NO Normal [facility] Comment on above: Performed By: #### P TT, PT #### [facility] [address] [place] [address] Dr. Marcell Luque MCH (RBC) [Entitic mass] 27.9 pg Normal 25.9-34.0 [facility] Comment on above: Performed By: #### P TT, PT #### [facility] [address] [place] [address] Dr. Marcell Luque MCHC (RBC) [Mass/Vol] 32.1 g/dL Normal 29.9-35.2 [facility] Comment on above: Performed By: #### P TT, PT #### [facility] [address] [place] [address] Dr. Marcell Luque MCV (RBC) [Entitic vol] 87.1 fL Normal 80.0-94.0 [facility] Comment on above: Performed By: #### P TT, PT #### [facility] [address] [place] [address] Dr. Marcell Luque MONO # 0.9 103/ul Critically high 0.3-0.8 [facility] Comment on above: Performed By: #### P TT, PT #### [facility] [address] [place] [address] Dr. Marcell Luque Monocytes/100 WBC (Bld) 10.7 % Normal 1.7-12.0 [facility] Comment on above: Performed By: #### P TT, PT #### [facility] [address] [place] [address] Dr. Marcell Luque NEUT # 4.5 103/ul Normal 1.4-6.5 [facility] Comment on above: Performed By: #### P TT, PT #### [facility] [address] [place] [address] Dr. Marcell Luque Neutrophils/100 WBC (Bld) 55.6 % Normal 43.0-75.0 [facility] Comment on above: Performed By: #### P TT, PT #### [facility] [address] [place] [address] Dr. Marcell Luque Platelet mean volume (Bld) [Entitic vol] 10.7 fL Normal 9.5-13.5 [facility] Comment on above: Performed By: #### P TT, PT #### [facility] [address] [place] [address] Dr. Marcell Luque PLT 155 103/ul Normal 150-450 [facility] Comment on above: Performed By: #### P TT, PT #### [facility] [address] [place] [address] Dr. Marcell Luque RBC 4.51 106/ul Critically low 4.70-6.10 [facility] Comment on above: Performed By: #### P TT, PT #### [facility] [address] [place] [address] Dr. Marcell Luque WBC 8.1 103/ul Normal 4.0-11.0 [facility] Comment on above: Performed By: #### P TT, PT #### [facility] [address] [place] [address] Dr. Marcell Luque Covid-19 PCR (CVDTBH)on 05-22 SARS-CoV-2 (COVID-19) RNA NISHANT+probe Ql (Unsp spec) Not detected Normal NOT DETECTED [facility] Comment on above: Result Comment: When diagnostic [...] for this test is supported by the [place] of Health and Human Service's declaration that [...] Performed By: #### P TT, PT #### [facility] [address] [place] [address] Dr. Marcell Luque LACTATE/LACTIC ACIDon 2021 Lactate [Moles/Vol] 1.4 mmol/L Normal 0.4-1.9 [facility] Comment on above: Performed By: #### L ACT #### [facility] [address] [place] [address] Dr. Marcell Luque PROF CHEM 8 (BAS METB)on Anion gap [Moles/Vol] 8.7 mmol/L Normal [facility] Comment on above: Performed By: #### B MP #### [facility] [address] [place] [address] Dr. Marcell Luque Calcium [Mass/Vol] 8.7 mg/dL Normal 8.5-10.1 [facility] Comment on above: Performed By: #### B MP #### [facility] [address] [place] [address] Dr. Marcell Luque Chloride [Moles/Vol] 101 mmol/L Normal 98-107 [facility] Comment on above: Performed By: #### B MP #### [facility] [address] [place] [address] [address] Mracell Luque CO2 [Moles/Vol] 29.8 mmol/L Normal 21.0-32.0 [facility] Comment on above: Performed By: #### B MP #### [facility] [address] [place] [address] [address] Marcell Luque Creatinine [Mass/Vol] 1.12 mg/dL Normal 0.70-1.30 [facility] Comment on above: Performed By: #### B MP #### [facility] [address] [place] [address] [address] Marcell Luque EGFR-AF SERBIAN >60 Normal >=60 [facility] Comment on above: Performed By: #### B MP #### [facility] [address] [place] [address] [address] Marcell Luque EGFR-NON AF SERBIAN >60 Normal >=60 [facility] Comment on above: Performed By: #### B MP #### [facility] [address] [place] [address] [address] Marcell Lquue Glucose [Mass/Vol] 173 mg/dL Critically high 74-106 [facility] Comment on above: Performed By: #### B MP #### [facility] [address] [place] [address] [address] Marcell Luque Potassium [Moles/Vol] 3.5 mmol/L Normal 3.5-5.1 [facility] Comment on above: Performed By: #### B MP #### [facility] [address] [place] [address] [address] Marcell Luque Sodium [Moles/Vol] 136 mmol/L Normal 136-145 [facility] Comment on above: Performed By: #### B MP #### [facility] [address] [place] [address] [address] Marcell Luque Urea nitrogen [Mass/Vol] 18.0 mg/dL Normal 7.0-18.0 [facility] Comment on above: Performed By: #### B MP #### [facility] [address] [place] [address] [address] Marcell Luque Urea nitrogen/Creatinine [Mass ratio] 16.1 mg/mg Normal [facility] Comment on above: Performed By: #### B MP #### [facility] [address] [place] [address] [address] Marcell Luque TROPONIN, HIGH SENSITIVITYon 06-07-2022 HSTROP 84.7 pg/mL Critically high 4.0-76.1 [facility] Comment on above: Result Comment: CUT- OFF POINTS HAVE BEEN ESTABLISHED BASED ON THE FOURTH UNIVERSAL DEFINITIONS OF MYOCARDIAL INFARCTION. THE UPPER REFERENCE LIMIT (URL) OF TROPONIN, DEFINED THE 99TH PERCENTILE OF cTnI DISTRIBUTION IN A REFERENCE POPULATION, HAS BEEN CONFIRMED THE DECISION THRESHOLD FOR [place] DIAGNOSIS. Performed By: #### P TT, PT #### [facility] [address] [place] [address] Dr. Marcell Luque XR CHEST 1 Von [...] VALERIE ERWIN Date: 2022-06-06 22:17 Normal [facility] AMMONIAon 06-06-2022 Ammonia (P) [Moles/Vol] 13 umol/L Normal 11-32 [facility] Comment on above: Performed By: #### A MM #### [facility] [address] [place] [address] [address] Marcell Luque CBC AUTO DIFFon 06-06-2022 BASO # 0.1 103/ul Normal 0.0-0.1 [facility] Comment on above: Performed By: #### P TT, PT #### [facility] [address] [place] [address] Dr. Marcell Luque Basophils/100 WBC (Bld) 0.7 % Normal 0.2-2.0 [facility] Comment on above: Performed By: #### P TT, PT #### [facility] [address] [place] [address] Dr. Marcell Luque EO # 0.3 103/ul Normal 0.0-0.7 [facility] Comment on above: Performed By: #### P TT, PT #### [facility] [address] [place] [address] Dr. Marcell Luque Eosinophils/100 WBC (Bld) 4.0 % Normal 0.9-7.0 [facility] Comment on above: Performed By: #### P TT, PT #### [facility] [address] [place] [address] Dr. Marcell Luque Erythrocyte distribution width (RBC) [Ratio] 13.8 % Normal 11.0-15.0 [facility] Comment on above: Performed By: #### P TT, PT #### [facility] [address] [place] [address] Dr. Marcell Luque Hematocrit (Bld) [Volume fraction] 44.4 % Normal 42.0-54.0 [facility] Comment on above: Performed By: #### P TT, PT #### [facility] [address] [place] [address] Dr. Marcell Luque Hemoglobin (Bld) [Mass/Vol] 14.4 g/dL Normal 14.0-18.0 [facility] Comment on above: Performed By: #### P TT, PT #### [facility] [address] [place] [address] Dr. Marcell Luque IG # 0.02 10e3/ul Normal 0.00-0.03 [facility] Comment on above: Performed By: #### P TT, PT #### [facility] [address] [place] [address] Dr. Marcell Luque IG % 0.2 % Normal 0.0-0.5 [facility] Comment on above: Performed By: #### P TT, PT #### [facility] [address] [place] [address] [address] Marcell Luque LYMPH # 2.9 103/ul Normal 1.2-3.8 [facility] Comment on above: Performed By: #### P TT, PT #### [facility] [address] [place] [address] [address] Marcell Luque Lymphocytes/100 WBC (Bld) 35.4 % Normal 20.5-60.0 [facility] Comment on above: Performed By: #### P TT, PT #### [facility] [address] [place] [address] [address] Marcell Luque MANUAL DIFF REQ NO Normal [facility] Comment on above: Performed By: #### P TT, PT #### [facility] [address] [place] [address] Dr. Marcell Luque MCH (RBC) [Entitic mass] 28.1 pg Normal 25.9-34.0 [facility] Comment on above: Performed By: #### P TT, PT #### [facility] [address] [address] [address] Marcell Luque MCHC (RBC) [Mass/Vol] 32.4 g/dL Normal 29.9-35.2 [facility] Comment on above: Performed By: #### P TT, PT #### [facility] [address] [place] [address] [address] Marcell Luque MCV (RBC) [Entitic vol] 86.7 fL Normal 80.0-94.0 [facility] Comment on above: Performed By: #### P TT, PT #### [facility] [address] [place] [address] [address] Marcell Luque MONO # 0.7 103/ul Normal 0.3-0.8 [facility] Comment on above: Performed By: #### P TT, PT #### [facility] [address] [place] [address] [address] Marcell Luque Monocytes/100 WBC (Bld) 8.2 % Normal 1.7-12.0 [facility] Comment on above: Performed By: #### P TT, PT #### [facility] [address] [place] [address] [address] Marcell Luque NEUT # 4.2 103/ul Normal 1.4-6.5 [facility] Comment on above: Performed By: #### P TT, PT #### [facility] [address] [place] [address] [address] Marcell Luque Neutrophils/100 WBC (Bld) 51.5 % Normal 43.0-75.0 [facility] Comment on above: Performed By: #### P TT, PT #### [facility] [address] [address] [address] Marcell Luque Platelet mean volume (Bld) [Entitic vol] 11.0 fL Normal 9.5-13.5 [facility] Comment on above: Performed By: #### P TT, PT #### [facility] [address] [place] [address] [address] Marcell Luque PLT 183 103/ul Normal 150-450 [facility] Comment on above: Performed By: #### P TT, PT #### [facility] [address] [place] [address] [address] Marcell Luque RBC 5.12 106/ul Normal 4.70-6.10 [facility] Comment on above: Performed By: #### P TT, PT #### [facility] [address] [place] [address] Dr. Marcell Luque WBC 8.2 103/ul Normal 4.0-11.0 [facility] Comment on above: Performed By: #### P TT, PT #### [facility] [address] [place] [address] HEAD WO CONon [...] by: CURTIS WILSON Date: 2022-06-06 21:56 Normal [facility] CULTURE BLOODon 06-06-2022 Microscopic examination of blood, culture Culture Observations: NO GROWTH AT 5 DAYS. Normal [facility] Comment on above: Performed By: #### P TT, PT #### [facility] [address] [place], [place] [address] Dr. Marcell Luque Microscopic examination of blood, culture Culture Observations: NO GROWTH AT 5 DAYS. Normal [facility] Comment on above: Performed By: #### P TT, PT #### [facility] [address] [place], [place] [address] Dr. Marcell Luque ETHANOL (BLD ALC)on 10-16-20 22 ALC NOTE NOTE: 80 mg/dl is e legal limit for a blood alcohol level Normal [facility] Comment on above: Performed By: #### P TT, PT #### [facility] [address] [place] [address] Dr. Marcell Luque Ethanol [Mass/Vol] mg/dL Normal [facility] Comment on above: Performed By: #### P TT, PT #### [facility] [address] [place] [address] Dr. Marcell Luque LACTATE/LACTIC ACIDon 2021 Lactate [Moles/Vol] 2.9 mmol/L Critically high 0.4-1.9 [facility] Comment on above: Performed By: #### P TT, PT #### [facility] [address] [place] [address] Dr. Marcell Luque PROF 14(COMP METB)on 022 Albumin [Mass/Vol] 4.3 g/dL Normal 3.4-5.0 [facility] Comment on above: Performed By: #### P TT, PT #### [facility] [address] [place] [address] Dr. Marcell Luque Albumin/Globulin [Mass ratio] 1.1 {ratio} Normal [facility] Comment on above: Performed By: #### P TT, PT #### [facility] [address] [place] [address] Dr. Marcell Luque ALP [Catalytic activity/Vol] 91 U/L Normal 46-116 [facility] Comment on above: Performed By: #### P TT, PT #### [facility] [address] [place] [address] Dr. Marcell Luque ALT [Catalytic activity/Vol] 35 U/L Normal 16-63 [facility] Comment on above: Performed By: #### P TT, PT #### [facility] [address] [place] [address] Dr. Marcell Luque Anion gap [Moles/Vol] 11.7 mmol/L Normal e [facility] Comment on above: Performed By: #### P TT, PT #### [facility] [address] [address] [address] Marcell Luque AST [Catalytic activity/Vol] 15 U/L Normal 15-37 [facility] Comment on above: Performed By: #### P TT, PT #### [facility] [address] [place] [address] Dr. Marcell Luque Bilirubin [Mass/Vol] 0.4 mg/dL Normal 0.2-1.0 [facility] Comment on above: Performed By: #### P TT, PT #### [facility] [address] [place] [address] Dr. Marcell Luque Calcium [Mass/Vol] 9.8 mg/dL Normal 8.5-10.1 [facility] Comment on above: Performed By: #### P TT, PT #### [facility] [address] [place] [address] Dr. Marcell Luque Chloride [Moles/Vol] 97 mmol/L Critically low 98-107 [facility] Comment on above: Performed By: #### P TT, PT #### [facility] [address] [place] [address] Dr. Marcell Luque CO2 [Moles/Vol] 30.8 mmol/L Normal 21.0-32.0 [facility] Comment on above: Performed By: #### P TT, PT #### [facility] [address] [place] [address] Dr. Marcell Luque Creatinine [Mass/Vol] 1.45 mg/dL Critically high 0.70-1.30 [facility] Comment on above: Performed By: #### P TT, PT #### [facility] [address] [place] [address] Dr. Marcell Luque EGFR-AF SERBIAN 59 mL/min/1.73m2 Critically low >=60 [facility] Comment on above: Performed By: #### P TT, PT #### [facility] [address] [place] [address] Dr. Marcell Luque EGFR-NON AF SERBIAN 49 mL/min/1.73m2 Critically low >=60 [facility] Comment on above: Performed By: #### P TT, PT #### [facility] [address] [address] [address] Marcell Luque Globulin (S) [Mass/Vol] 3.9 g/dL Normal [facility] Comment on above: Performed By: #### P TT, PT #### [facility] [address] [place] [address] Dr. Marcell Luque Glucose [Mass/Vol] 204 mg/dL Critically high 74-106 [facility] Comment on above: Performed By: #### P TT, PT #### [facility] [address] [place] [address] Dr. Marcell Luque Potassium [Moles/Vol] 3.5 mmol/L Normal 3.5-5.1 [facility] Comment on above: Performed By: #### P TT, PT #### [facility] [address] [place] [address] Dr. Marcell Luque Protein [Mass/Vol] 8.2 g/dL Normal 6.4-8.2 [facility] Comment on above: Performed By: #### P TT, PT #### [facility] [address] [place] [address] Dr. Marcell Luque Sodium [Moles/Vol] 136 mmol/L Normal 136-145 [facility] Comment on above: Performed By: #### P TT, PT #### [facility] [address] [place] [address] Dr. Marcell Luque Urea nitrogen [Mass/Vol] 20.0 mg/dL Critically high 7.0-18.0 [facility] Comment on above: Performed By: #### P TT, PT #### [facility] [address] [place] [address] Dr. Marcell Luque Urea nitrogen/Creatinine [Mass ratio] 13.8 mg/mg Normal [facility] Comment on above: Performed By: #### P TT, PT #### [facility] [address] [place] [address] Dr. Marcell Luque PROTIMEon 06-06-2022 INR Coag (PPP) [Relative time] 1.02 {INR} Normal [facility] Comment on above: Performed By: #### P TT, PT #### [facility] [address] [address] [address] Marcell Luque INR GUIDELINES SEE BELOW Normal [facility] Comment on above: Result Comment: DANICA RED INR: 2.0 - 3.0 CONDITIONS NOT LISTED BELOW 2.5 - 3.5 FOR PROSTHETIC HEART VALVE REPLACEMENT 2.5 - 3.5 RECURRENT THROMBOSIS Performed By: #### P TT, PT #### [facility] [address] [address] [address] Marcell Luque PT Coag (PPP) [Time] 11.0 s Normal 9.0-11.6 [facility] Comment on above: Performed By: #### P TT, PT #### [facility] [address] [address] [address] Marcell Luque PTTon 06-06-2022 aPTT Coag (Bld) [Time] 25.9 s Normal 22.3-36.2 [facility] Comment on above: Performed By: #### P TT, PT #### [facility] [address] [address] [address] Marcell Luque TROPONIN, HIGH SENSITIVITYon 06-06-2022 HSTROP 92.4 pg/mL Critically high 4.0-76.1 [facility] Comment on above: Result Comment: CUT- OFF POINTS HAVE BEEN ESTABLISHED BASED ON THE FOURTH UNIVERSAL DEFINITIONS OF MYOCARDIAL INFARCTION. THE UPPER REFERENCE LIMIT (URL) OF TROPONIN, DEFINED THE 99TH PERCENTILE OF cTnI DISTRIBUTION IN A REFERENCE POPULATION, HAS BEEN CONFIRMED THE DECISION THRESHOLD FOR [place] DIAGNOSIS. Performed By: #### P TT, PT #### [facility] [address] [place] [address] Dr. Marcell Luque Physician Referralon 022 Physician Referral [id number] .[id number]:127 Normal [facility] Ambulatory Visit Summaryon 1 Ambulatory Visit Summary EUNICE MARTE :1955 Visit Date:06/02/2022 Ambulatory Visit Instructions Your Diagnosis Elevated PSA BPH with urinary obstruction Erectile dysfunction Tests Performed Urnls Dip Stick Auto w/o Microscopy POC 93845 Your Care Team Attending Physician - Dewey [...] MD, Asim Singleton Where: [facility] Patient Educationon 06-02-20 Patient Education Urology Erectile [...] these instructions at home: Medicines ? Take ljlh-kyc-kgwdlff and prescription medicines only as told by [...] swelling of your (more content not included)... [facility] Provider Letteron 06-02-2022 Provider Letter June 02, 2022 EUNICE MARTE [address] [place] [address] EUNICE MARTE 1955 To Whom It May Concern, Please excuse above patient from work. Date of Appointment: From: 06/02/2022 To: 06/02/2022 May Return to Work On:06/02/2022 Restrictions: none Comments: Shayy was with her Eunice for his appointment at our office today, any questions please call our office Sincerely, [facility] [address], [place] [address] [facility] RAD - MRI Reporton RAD - MRI Report [id number] .00CD:127 Normal [facility] Urology Office/Clinic Noteon 06-02-2022 Urology Office/Clinic Note Chief Complaint Patient in office for f/u to MRI of the prostate HPI Staff Patient in office for f/u to MRI of the Prostate done on 05/26/22 @ [facility] [place]. MRI shows a focal area of T2 [...] Information Dewey COTTO, Milvia Lucia, URL, [facility] [address], [place] [address] [phone] Additional Instructions: Patient Education Erectile Dysfunction I, [...] 6 refi (more content not included)... Normal [facility] Comment on above: Result Comment: Elec tronically Signed By: Milvia Palomo MD\.br\Date and Time Signed: 06/02/22 12:00 EDT\.br\Electronically Co-Signed By: Paty Maher MA\.br\Date and Time Co-Signed: 06/02/22 10:08 EDT Creatinine (Bld) [Mass/Vol]O rdered By: Milvia Palomo on 05-26-2022 Creatinine [Mass/Vol] 0.8 mg/dL 0.6-1.3 [facility] Comment on above: ER/ESD physician is notified/shown all ISTAT results.Critical values may be confirmed by laboratory testing ifdeemed necessary by ER attending doctor. No Panel InformationOrdered By: Milvia Palomo on 05-26-2022 POC Estimated GFR > 60 [facility] Comment on above: GFR estimated refere nce range: According to KDOQI guidelines, <60 ml/min/1.73m2 is sufficient to diagnose a patient with chronic kidney disease. POC Estimated GFR Non- Amer > 60 [facility] Screenson 04-29-2022 Screens [id number]# 1.00CD:127 Normal [facility] Screens [id number] .00CD:127 Normal [facility] Patient Educationon 04-21-20 22 Patient Education [...] of these risk factors: ? Being of -Bhut[place] descent. ? Having a family history of [...] Are older than age 55. ? Are -Bhutanese. ? Have a father, brother, or uncle [...] 05/19/2018 Document R (more content not included)... [facility] Provider Letteron 04-21-2022 Provider Letter April 21, 2022 EUNICE MARTE [address] [place] [address] EUNICE MARTE 1955 To Whom It May Concern, Please excuse above patient from work. 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 Normal [facility] Comment on above: Result Comment: Elec tronically Signed By: Milvia Palomo MD\.br\Date and Time Signed: 04/21/22 17:24 EDT\.br\Electronically Co-Signed By: Lamar Lowry.br\Date and Time Co-Signed: 04/21/22 12:13 EDT CBC AUTO DIFFon 01-26-2022 BASO # 0.1 103/ul Normal 0.0-0.1 [facility] Comment on above: Performed By: #### P TT, PT #### [facility] [address] [place] [address] Dr. Marcell Luque Basophils/100 WBC (Bld) 1.1 % Normal 0.2-2.0 [facility] Comment on above: Performed By: #### P TT, PT #### [facility] [address] [place] [address] Dr. Marcell Luque EO # 0.3 103/ul Normal 0.0-0.7 [facility] Comment on above: Performed By: #### P TT, PT #### [facility] [address] [place] [address] Dr. Marcell Luque Eosinophils/100 WBC (Bld) 5.0 % Normal 0.9-7.0 [facility] Comment on above: Performed By: #### P TT, PT #### [facility] [address] [place] [address] Dr. Marcell Luque Erythrocyte distribution width (RBC) [Ratio] 13.0 % Normal 11.0-15.0 [facility] Comment on above: Performed By: #### P TT, PT #### [facility] [address] [place] [address] Dr. Marcell Luque Hematocrit (Bld) [Volume fraction] 44.3 % Normal 42.0-54.0 [facility] Comment on above: Performed By: #### P TT, PT #### [facility] [address] [place] [address] Dr. Marcell Luque Hemoglobin (Bld) [Mass/Vol] 14.3 g/dL Normal 14.0-18.0 [facility] Comment on above: Performed By: #### P TT, PT #### [facility] [address] [place] [address] Dr. Marcell Luque IG # 0.01 10e3/ul Normal 0.00-0.03 [facility] Comment on above: Performed By: #### P TT, PT #### [facility] [address] [address] [address] Marcell Luque IG % 0.2 % Normal 0.0-0.5 [facility] Comment on above: Performed By: #### P TT, PT #### [facility] [address] [place] [address] Dr. Marcell Luque LYMPH # 2.1 103/ul Normal 1.2-3.8 [facility] Comment on above: Performed By: #### P TT, PT #### [facility] [address] [place] [address] Dr. Marcell Luque Lymphocytes/100 WBC (Bld) 32.6 % Normal 20.5-60.0 [facility] Comment on above: Performed By: #### P TT, PT #### [facility] [address] [place] [address] Dr. Mracell Luque MANUAL DIFF REQ NO Normal [facility] Comment on above: Performed By: #### P TT, PT #### [facility] [address] [place] [address] Dr. Marcell Luque MCH (RBC) [Entitic mass] 27.7 pg Normal 25.9-34.0 [facility] Comment on above: Performed By: #### P TT, PT #### [facility] [address] [place] [address] Dr. Marcell Luque MCHC (RBC) [Mass/Vol] 32.3 g/dL Normal 29.9-35.2 [facility] Comment on above: Performed By: #### P TT, PT #### [facility] [address] [place] [address] Dr. Marcell Luque MCV (RBC) [Entitic vol] 85.7 fL Normal 80.0-94.0 [facility] Comment on above: Performed By: #### P TT, PT #### [facility] [address] [place] [address] Dr. Marcell Luque MONO # 0.4 103/ul Normal 0.3-0.8 [facility] Comment on above: Performed By: #### P TT, PT #### [facility] [address] [place] [address] Dr. Marcell Luque Monocytes/100 WBC (Bld) 6.9 % Normal 1.7-12.0 [facility] Comment on above: Performed By: #### P TT, PT #### [facility] [address] [place] [address] Dr. Marcell Luque NEUT # 3.5 103/ul Normal 1.4-6.5 [facility] Comment on above: Performed By: #### P TT, PT #### [facility] [address] [place] [address] Dr. Marcell Luque Neutrophils/100 WBC (Bld) 54.2 % Normal 43.0-75.0 [facility] Comment on above: Performed By: #### P TT, PT #### [facility] [address] [place] [address] Dr. Marcell Luque Platelet mean volume (Bld) [Entitic vol] 11.9 fL Normal 9.5-13.5 [facility] Comment on above: Performed By: #### P TT, PT #### [facility] [address] [place] [address] Dr. Marcell Luque PLT 268 103/ul Normal 150-450 [facility] Comment on above: Performed By: #### P TT, PT #### [facility] [address] [place] [address] Dr. Marcell Luque RBC 5.17 106/ul Normal 4.70-6.10 [facility] Comment on above: Performed By: #### P TT, PT #### [facility] [address] [place] [address] Dr. Marcell Luque WBC 6.4 103/ul Normal 4.0-11.0 [facility] Comment on above: Performed By: #### P TT, PT #### [facility] [address] [place] [address] Dr. Marcell Luque GLYCOHEMOGLOBIN A1Con 2021 ADA RECOMMENDATION SEE BELOW Normal [facility] Comment on above: Result Comment: ADA RECOMMENDED LIMIT 4.0 - 6.0 ADA THERAPEUTIC TARGET < 7.0 ACTION SUGGESTED > 7.0 Performed By: #### A 1C #### [facility] [address] [address] [address] Marcell Luque Glucose [Mass/Vol] 272 mg/dL Normal [facility] Comment on above: Performed By: #### A 1C #### [facility] [address] [address] [address] Marcell Luque HbA1c (Bld) [Mass fraction] 11.1 % Critically high 4.5-6.2 [facility] Comment on above: Performed By: #### A 1C #### [facility] [address] [place] [address] Dr. Marcell Luque LIPID PROFILEon 01-26-2022 CHOL-HDL RATIO NORM SEE BELOW Normal [facility] Comment on above: Result Comment: 3.3 - 4.4 LOW RISK 4.4 - 7.1 AVERAGE RISK 7.1 - 11.0 MODERATE RISK >11.0 HIGH RISK Performed By: #### L KALPESH LIPID, BMP #### [facility] [address] [place] [address] Dr. Marcell Luque Cholesterol [Mass/Vol] 219 mg/dL Critically high <=200 [facility] Comment on above: Performed By: #### L KALPESH LIPID, BMP #### [facility] [address] [place] [address] Dr. Marcell Luque Cholesterol in HDL [Mass/Vol] 42 mg/dL Normal 40-60 [facility] Comment on above: Performed By: #### L KALPESH LIPID, BMP #### [facility] [address] [place] [address] Dr. Marcell Luque Cholesterol in LDL [Mass/Vol] 151.8 mg/dL Normal [facility] Comment on above: Performed By: #### L KALPESH LIPID, BMP #### [facility] [address] [place] [address] Dr. Marcell Luque Cholesterol.total/Cho lesterol in HDL [Mass ratio] 5.2 {ratio} Normal [facility] Comment on above: Performed By: #### L IVKALPANA LIPID, BMP #### [facility] [address] [address] [address] Marcell Luque HDL NORMAL > or = 60 mg/dl - LO W CARDIOVASCULAR RISK <40 mg/dl - HIGH CARDIOVASCULAR RISK Normal [facility] Comment on above: Performed By: #### L IVER, LIPID, BMP #### [facility] [address] [address] [address] Marcell Luque LDL CALC NORMAL SEE BELOW Normal [facility] Comment on above: Result Comment: <100 mg/dl OPTIMAL 100 - 129 mg/dl NEAR OR ABOVE OPTIMAL 130 - 159 mg/dl BORDERLINE HIGH 160 - 189 mg/dl HIGH >190 mg/dl VERY HIGH Performed By: #### L IVKALPANA, LIPID, BMP #### [facility] [address] [place] [address] Dr. Marcell Luque Triglyceride [Mass/Vol] 126 mg/dL Normal <=150 [facility] Comment on above: Performed By: #### L IVER, LIPID, BMP #### [facility] [address] [address] [address] Marcell Luque VLDL CALC 25.2 mg/dL Normal [facility] Comment on above: Performed By: #### L IVKALPANA, LIPID, BMP #### [facility] [address] [place] [address] Dr. Marcell Luque LIVER PROFILEon 01-26-2022 Albumin [Mass/Vol] 3.8 g/dL Normal 3.4-5.0 [facility] Comment on above: Performed By: #### L IVER, LIPID, BMP #### [facility] [address] [place] [address] Dr. Marcell Luque Albumin/Globulin [Mass ratio] 1.0 {ratio} Normal [facility] Comment on above: Performed By: #### L IVER, LIPID, BMP #### [facility] [address] [place] [address] Dr. Marcell Luque ALP [Catalytic activity/Vol] 106 U/L Normal 46-116 [facility] Comment on above: Performed By: #### L IVER, LIPID, BMP #### [facility] [address] [place] [address] Dr. Marcell Luque ALT [Catalytic activity/Vol] 34 U/L Normal 16-63 [facility] Comment on above: Performed By: #### L IVER, LIPID, BMP #### [facility] [address] [place] [address] Dr. Marcell Luque AST [Catalytic activity/Vol] 19 U/L Normal 15-37 [facility] Comment on above: Performed By: #### L IVER, LIPID, BMP #### [facility] [address] [place] [address] Dr. Marcell Luque BILI, CONJUGATED 0.1 mg/dL Normal 0.0-0.2 [facility] Comment on above: Performed By: #### L IVER, LIPID, BMP #### [facility] [address] [place] [address] Dr. Marcell Luque Bilirubin [Mass/Vol] 0.5 mg/dL Normal 0.2-1.0 [facility] Comment on above: Performed By: #### L IVER, LIPID, BMP #### [facility] [address] [place] [address] Dr. Marcell Luque Globulin (S) [Mass/Vol] 3.9 g/dL Normal [facility] Comment on above: Performed By: #### L IVER, LIPID, BMP #### [facility] [address] [place] [address] Dr. Marcell Luque Protein [Mass/Vol] 7.7 g/dL Normal 6.4-8.2 [facility] Comment on above: Performed By: #### L IVER, LIPID, BMP #### [facility] [address] [place] [address] Dr. Marcell Luque PROF CHEM 8 (BAS METB)on Anion gap [Moles/Vol] 12.1 mmol/L Normal [facility] Comment on above: Performed By: #### L IVER, LIPID, BMP #### [facility] [address] [place] [address] Dr. Marcell Luque Calcium [Mass/Vol] 9.3 mg/dL Normal 8.5-10.[address] [facility] Comment on above: Performed By: #### L IVER, LIPID, BMP #### [facility] [address] [address] [address] Marcell Luque Chloride [Moles/Vol] 100 mmol/L Normal 98-107 [facility] Comment on above: Performed By: #### L IVER, LIPID, BMP #### [facility] [address] [place] [address] Dr. Marcell Luque CO2 [Moles/Vol] 29.1 mmol/L Normal 21.0-32.0 [facility] Comment on above: Performed By: #### L IVER, LIPID, BMP #### [facility] [address] [place] [address] Dr. Marcell Luque Creatinine [Mass/Vol] 1.23 mg/dL Normal 0.70-1.30 [facility] Comment on above: Performed By: #### L IVER, LIPID, BMP #### [facility] [address] [place] [address] Dr. Marcell Luque EGFR-AF SERBIAN >60 Normal >=60 [facility] Comment on above: Performed By: #### L IVER, LIPID, BMP #### [facility] [address] [place] [address] Dr. Marcell Luque EGFR-NON AF SERBIAN 59 mL/min/1.73m2 Critically low >=60 [facility] Comment on above: Performed By: #### L IVER, LIPID, BMP #### [facility] [address] [place] [address] Dr. Marcell Luque Glucose [Mass/Vol] 358 mg/dL Critically high 74-106 [facility] Comment on above: Performed By: #### L IVER, LIPID, BMP #### [facility] [address] [place] [address] Dr. Marcell Luque Potassium [Moles/Vol] 4.2 mmol/L Normal 3.5-5.1 [facility] Comment on above: Performed By: #### L IVER, LIPID, BMP #### [facility] [address] [place] [address] Dr. Marcell Luque Sodium [Moles/Vol] 137 mmol/L Normal 136-145 [facility] Comment on above: Performed By: #### L KALPESH LIPID, BMP #### [facility] [address] [place] [address] Dr. Marcell Luque Urea nitrogen [Mass/Vol] 10.0 mg/dL Normal 7.0-18.0 [facility] Comment on above: Performed By: #### L KALPESH LIPID, BMP #### [facility] [address] [place] [address] Dr. Marcell Luque Urea nitrogen/Creatinine [Mass ratio] 8.1 mg/mg Normal [facility] Comment on above: Performed By: #### L ROMERO POSEY, BMP #### [facility] [address] [place] [address] Dr. Marcell Luque VITAMIN D 25 OHon 01-26-2022 VIT D 25-OH 40.2 ng/mL Normal [facility] Comment on above: Performed By: #### P TT, PT #### [facility] [address] [place] [address] Dr. Marcell Luque VIT D RANGES SEE BELOW Normal [facility] Comment on above: Result Comment: <20 ng/mL Vit D deficient 20 - <30 ng/mL Vit D insufficient 30 - 100 ng/mL Vit D sufficient >100 ng/mL Potential Toxicity Performed By: #### P TT, PT #### [facility] [address] [place] [address] Dr. Marcell Luque Protein S Activityon 019 Protein [Mass/Vol] 101 % Normal 77-116 [facility] Comment on above: Result Comment: Patients on [...] APA, PTT, PT, FA8, DRVT, PROCAC, PROSAC ####[facility] [address] [place], [place] [id number] lab Director: Stas Irving MD APTTon 06-15-2019 aPTT Coag (Bld) [Time] 29.6 s Normal 20.5-30.5 [facility] Comment on above: Performed By: #### H OCYS, APA, PTT, PT, FA8, DRVT, PROCAC, PROSAC ####[facility] [address] [place], [place] [id number] lab Director: Stas Irving MD Dilute Deepak Viperon 06-15 Dilute Deepak Viper Negative Normal [facility] Comment on above: Performed By: #### H OCYS, APA, PTT, PT, FA8, DRVT, PROCAC, PROSAC ####[facility] [address] [place] [id number] lab Director: Stas Irving MD Factor VIII Activityon 06-15 Factor VIII Activity 173 % High 50-150 [facility] Comment on above: Performed By: #### H OCYS, APA, PTT, PT, FA8, DRVT, PROCAC, PROSAC ####[facility] [address] [place] [address] [id number] lab Director: Stas Irving MD PTon 06-15-2019 INR Coag (PPP) [Relative time] 1.1 {INR} Normal [facility] Comment on above: Result Comment: Therapeutic Range: Moderate Anticoagulant Intensity: INR = 2.0-3.0 High Anticoagulant Intensity: INR = 2.5-3.5 Performed By: #### H OCYS, APA, PTT, PT, FA8, DRVT, PROCAC, PROSAC ####[facility] [address] [place], [place] [id number] lab Director: Stas Irving MD PT Coag (PPP) [Time] 11.8 s Normal 9.0-12.0 [facility] Comment on above: Performed By: #### H OCYS, APA, PTT, PT, FA8, DRVT, PROCAC, PROSAC ####[address] [id number] Lab Director: Stas Irving MD Protein C Activityon 019 Protein [Mass/Vol] 130 % Normal >80 [facility] Comment on above: Result Comment: Patients on [...] APA, PTT, PT, FA8, DRVT, PROCAC, PROSAC ####[facility] [address] [place] [address] [id number] lab Director: Stas Irving MD Anti-Phospholipid Abon 06-12 Antiphospholipid IgA 15.3 APU High <12 [facility] Comment on above: Result Comment: Reference Range: 12 - 15 Equivocal >15 Positive Performed By: #### H OCYS, APA, PTT, PT, FA8, DRVT, PROCAC, PROSAC ####[facility] [address] [place] [address] [id number] lab Director: Stas Irving MD Antiphospholipid IgG 2.7 GPU Normal <20 [facility] Comment on above: Result Comment: Reference Range: 20.0 - 29.9 Low Positive 30.0 - 79.9 Moderate Positive >79.9 High Positive Performed By: #### H OCYS, APA, PTT, PT, FA8, DRVT, PROCAC, PROSAC ####[facility] [address] [place] [address] Lab Director: Stas Irving MD Antiphospholipid IgM 4.7 MPU Normal <20 [facility] Comment on above: Result Comment: Reference Range: 20.0 - 29.9 Low Positive 30.0 - 79.9 Moderate Positive >79.9 High Positive Performed By: #### H OCYS, APA, PTT, PT, FA8, DRVT, PROCAC, PROSAC ####[facility] [address] [place] [address] Lab Director: Stas Irving MD Basic Metabolic Panelon 05-22 Anion gap [Moles/Vol] 12 mmol/L 9 - 17 mmol/L [place] Bun/Cre Ratio NOT REPORTED [place] Calcium [Mass/Vol] 9.6 mg/dL 8.6 - 10. 4 mg/dL [place] Chloride [Moles/Vol] 97 mmol/L Low 98 - 10 7 mmol/L [place] CO2 [Moles/Vol] 29 mmol/L 20 - 31 mmol/L [place] Creatinine [Mass/Vol] 1.08 mg/dL 0.7 - 1.2 mg/dL [place] GFR >60 >60 mL/min [place] GFR Non- >60 >60 mL/min [place] GFR/1.73 sq M predicted among non-blacks MDRD (S/P/Bld) [Vol rate/Area] [place] Comment on above: Average GFR for 60-6 9 years old: 85 mL/min/1.73sq m Chronic Kidney Disease: <60 mL/min/1.73sq m Kidney failure: <15 mL/min/1.73sq m eGFR calculated using average adult body mass. Additional eGFR calculator available at: http://www.[employer]stream[employer]/multiple_crcl_2012.htm GFR/1.73 sq M predicted among non-blacks MDRD (S/P/Bld) [Vol rate/Area] NOT REPORTED [place] Glucose [Mass/Vol] 198 mg/dL High 70 - 99 mg/dL [place] Interpretation and review of laboratory results Abnormal [place] Potassium [Moles/Vol] 3.9 mmol/L 3.7 - 5.3 mmol/L [place] Sodium [Moles/Vol] 138 mmol/L 135 - 144 mmol/L [place] Urea nitrogen [Mass/Vol] 14 mg/dL 8 - 23 mg/dL [place] Basic Metabolic Profon 06-09 (cont.) Normal [facility] Comment on above: Result Comment: Aver age GFR for 60-69 years old: 85 mL/min/1.73sq m Chronic Kidney Disease: <60 mL/min/1.73sq m Kidney failure: <15 mL/min/1.73sq m eGFR calculated using average adult body mass. Additional eGFR calculator available at: http://www.[employer]/multiple_crcl_2012.htm Performed By: #### C DP, BMP ####[facility] [address] [place], [place] [phone] Director: Stas Irving MD Anion gap [Moles/Vol] 12 mmol/L Normal 9-17 [facility] Comment on above: Performed By: #### C DP, BMP ####[facility] [address] [place], [place] [phone] Director: Stas Irving MD Calcium [Mass/Vol] 9.6 mg/dL Normal 8.6-10.4 [facility] Comment on above: Performed By: #### C DP, BMP ####[facility] [address]xbddn[address] [place], [place] [phone])[phone] Director: Stas Irving MD Chloride [Moles/Vol] 97 mmol/L Low 98-107 [facility] Comment on above: Performed By: #### C DP, BMP ####[facility] [address] [place], [place] [phone] Director: Stas Irving MD CO2 [Moles/Vol] 29 mmol/L Normal 20-31 [facility] Comment on above: Performed By: #### C DP, BMP ####[facility] [address] [place], [place] [phone] Director: Stas Irving MD Creatinine [Mass/Vol] 1.08 mg/dL Normal 0.70-1.20 [facility] Comment on above: Performed By: #### C DP, BMP ####[facility] [address] [place], [place] [id number])[phone] Director: Stas Irving MD GFR, Amer >60 Normal >60 [facility] Comment on above: Performed By: #### C DP, BMP ####[facility] [address] [place], [place] [phone] Director: Stas Irving MD GFR,non Amer >60 Normal >60 [facility] Comment on above: Performed By: #### C DP, BMP ####[facility] [address] [place], [place] [phone])[phone] Director: Stas Irving MD Glucose [Mass/Vol] 198 mg/dL High 70-99 [facility] Comment on above: Performed By: #### C DP, BMP ####[facility] [address] [place], [place] [phone] Director: Stas Irving MD Potassium [Moles/Vol] 3.9 mmol/L Normal 3.7-5.3 [facility] Comment on above: Performed By: #### C DP, BMP ####[facility] [address] [place], [place] [phone] Director: Stas Irving MD Sodium [Moles/Vol] 138 mmol/L Normal 135-144 [facility] Comment on above: Performed By: #### C DP, BMP ####[facility] [address] [place], [place] [phone] Director: Stas Irving MD Urea nitrogen [Mass/Vol] 14 mg/dL Normal 8-23 [facility] Comment on above: Performed By: #### C DP, BMP ####[facility] [address] [place], [place] [phone] lab Director: Stas Irving MD BUN/CRE Ratio NOT REPORTED Normal 05-11 [facility] Comment on above: Performed By: #### C DP, BMP ####[facility] [address] [place] [address] lab Director: Stas Irving MD Staging: NOT REPORTED Normal [facility] Comment on above: Performed By: #### C DP, BMP ####[facility] [address] [place], [place] [phone] lab Director: Stas Irving MD CBC Auto Differentialon 05-22 Basophils (Bld) [#/Vol] 0.07 10*3/uL [place] Basophils/100 WBC (Bld) 1 % 0 - 2 % [place] Differential Type NOT REPORTED [place] Eosinophils (Bld) [#/Vol] 0.77 10*3/uL [place] Eosinophils/100 WBC (Bld) 10 % High 1 - 4 % [place] Erythrocyte distribution width (RBC) [Ratio] 13.7 % 11.8 - 14.4 % [place] Hematocrit (Bld) [Volume fraction] 53.7 % High 40.7 - 50.3 % [place] Hemoglobin (Bld) [Mass/Vol] 17.0 g/dL 13 - 17 g/dL [place] Immature granulocytes (Bld) [#/Vol] 10*3/uL [place] Immature granulocytes (Bld) [#/Vol] 0 % 0 [place] Interpretation and review of laboratory results Abnormal [place] Lymphocytes (Bld) [#/Vol] 2.66 10*3/uL [place] Lymphocytes/100 WBC (Bld) 36 % 24 - 43 % [place] MCH (RBC) [Entitic mass] 28.3 pg 25.2 - 33.5 pg [place] MCHC (RBC) [Mass/Vol] 31.7 g/dL 28.4 - 34.8 g/dL [place] MCV (RBC) [Entitic vol] 89.5 fL 82.6 - 102.9 fL [place] Monocytes (Bld) [#/Vol] 0.89 10*3/uL [place] Monocytes/100 WBC (Bld) 12 % 3 - 12 % [place] Platelet mean volume (Bld) [Entitic vol] 10.9 fL 8.1 - 13.5 fL [place] Platelets (Bld) [#/Vol] NOT REPORTED [place] Platelets (Bld) [#/Vol] 189 10*3/uL [place] RBC (Bld) [#/Vol] 6.00 10*6/uL High 4.21 - 5.7 7 m/uL [place] RBC morphology finding Nom (Bld) NOT REPORTED [place] Segmented neutrophils/100 WBC (Bld) 41 % 36 - 65 % [place] Segs Absolute 3.07 [place] WBC (Bld) [#/Vol] 0.0 10*3/uL 0.0 per 10 0 WBC [place] WBC (Bld) [#/Vol] 7.5 10*3/uL [place] WBC Morphology NOT REPORTED [place] CBC with Diffon 06-09-2019 Abs. Basophil 0.07 k/uL Normal 0.00-0.20 [facility] Comment on above: Performed By: #### C DP, BMP ####[facility] [address] [place] [address] [phone] Lab Director: Stas Irving MD Abs.Imm.Granulocyte <0.03 Normal 0.00-0.30 [facility] Comment on above: Performed By: #### C DP, BMP ####[facility] [address] [place], [place] [phone] Lab Director: Stas Irving MD Abs.Neutrophil (Seg) 3.07 k/uL Normal 1.50-8.10 [facility] Comment on above: Performed By: #### C DP, BMP ####[place], [place] [address])[phone] Director: Stas Irving MD Basophils/100 WBC (Bld) 1 % Normal 0-2 [facility] Comment on above: Performed By: #### C DP, BMP ####[place], [place] [address])[phone] Director: Stas Irving MD Eosinophils (Bld) [#/Vol] 0.77 10*3/uL High 0.00-0.44 [facility] Comment on above: Performed By: #### C DP, BMP ####[place], [place] [address])[phone] Director: Stas Irving MD Eosinophils/100 WBC (Bld) 10 % High 1-4 [facility] Comment on above: Performed By: #### C DP, BMP ####[place], [place] [address])[phone] Director: Stas Irving MD Erythrocyte distribution width (RBC) [Ratio] 13.7 % Normal 11.8-14.4 [facility] Comment on above: Performed By: #### C DP, BMP ####[place], [place] [address])[phone] Director: Stas Irving MD Hematocrit (Bld) [Volume fraction] 53.7 % High 40.7-50.3 [facility] Comment on above: Performed By: #### C DP, BMP ####[place], [place] [address])[phone] Director: Stas Irving MD Hemoglobin (Bld) [Mass/Vol] 17.0 g/dL Normal 13.0-17.0 [facility] Comment on above: Performed By: #### C DP, BMP ####[address] [phone] Director: Stas Irving MD Immature granulocytes (Bld) [#/Vol] 0 % Normal 0 [facility] Comment on above: Performed By: #### C DP, BMP ####[address] [address] Lab Director: Stas Irving MD Lymphocytes (Bld) [#/Vol] 2.66 10*3/uL Normal 1.10-3.70 [facility] Comment on above: Performed By: #### C DP, BMP ####[address] [id number])[phone] Director: Stas Irving MD Lymphocytes/100 WBC (Bld) 36 % Normal 24-43 [facility] Comment on above: Performed By: #### C DP, BMP ####[address] [phone])[phone] Director: Stas Irving MD MCH (RBC) [Entitic mass] 28.3 pg Normal 25.2-33.5 [facility] Comment on above: Performed By: #### C DP, BMP ####[address] [phone])[phone] Director: Stas Irving MD MCHC (RBC) [Mass/Vol] 31.7 g/dL Normal 28.4-34.8 [facility] Comment on above: Performed By: #### C DP, BMP ####[address] [phone])[phone] Director: Stas Irving MD MCV (RBC) [Entitic vol] 89.5 fL Normal 82.6-102.9 [facility] Comment on above: Performed By: #### C DP, BMP ####[address] [phone] Director: Stas Irving MD Monocytes (Bld) [#/Vol] 0.89 10*3/uL Normal 0.10-1.20 [facility] Comment on above: Performed By: #### C DP, BMP ####[address] [phone])[phone] Director: Stas Irving MD Monocytes/100 WBC (Bld) 12 % Normal 3-12 [facility] Comment on above: Performed By: #### C DP, BMP ####[address] [address])[phone] Director: Stas Irving MD Neutrophil (Seg) 41 % Normal 36-65 [facility] Comment on above: Performed By: #### C DP, BMP ####[address] [address])[phone] Director: Stas Irving MD NRBC Automated 0.0 per 100 WBC Normal 0.0 [facility] Comment on above: Performed By: #### C DP, BMP ####[address] [address])[phone] Director: Stas Irving MD Platelet mean volume (Bld) [Entitic vol] 10.9 fL Normal 8.1-13.5 [facility] Comment on above: Performed By: #### C DP, BMP ####[facility] [address] [place] [address])[phone] Director: Stas Irving MD Platelets (Bld) [#/Vol] 189 10*3/uL Normal 138-453 [facility] Comment on above: Performed By: #### C DP, BMP ####[address] [id number])[phone] Director: Stas Irving MD RBC (Bld) [#/Vol] 6.00 10*6/uL High 4.21-5.77 [facility] Comment on above: Performed By: #### C DP, BMP ####[facility] [address]zd[address]85 [place] [address] Lab Director: Stas Irving MD WBC (Bld) [#/Vol] 7.5 10*3/uL Normal 3.5-11.3 [facility] Comment on above: Performed By: #### C DP, BMP ####[facility] [address] [place] [address] Lab Director: Stas Irving MD Auto Diff Performed NOT REPORTED Normal [facility] Comment on above: Performed By: #### C DP, BMP ####[facility] [address] [place] [address] Lab Director: Stas Irving MD Platelets (Bld) [#/Vol] NOT REPORTED Normal [facility] Comment on above: Performed By: #### C DP, BMP ####[facility] [address] [place] [address] [phone])[phone] Director: Stas Irving MD RBC morphology finding Nom (Bld) NOT REPORTED Normal [facility] Comment on above: Performed By: #### C DP, BMP ####[facility] [address] [place], [place] [id number])[phone] Director: Stas Irving MD WBC Morphology NOT REPORTED Normal [facility] Comment on above: Performed By: #### C DP, BMP ####[facility] [address] [place] [address] [id number])[phone] Director: Stas Irving MD DNA Testingon 06-09-2019 DNA Testing (NOTE) [id number] [facility] MOLECULAR PATHOLOGY LABORATORY [facility] [place], [place] [address] FACTOR V LEIDEN MUTATION ANALYSIS REPORT [facility] Aron Llanes MD, Ravinder Pratt MD Specimen(s) Received: Peripheral blood, FVLI Clinical Information: CVA RESULTS: MOLECULAR GENETIC DIAGNOSIS: Negative for Factor V Leiden Mutation INTERPRETATION: The Factor V Leiden mutation (1691GA) [c.1601G>A(p.Cad562Cd n)] was not detected in this study. This patient may, however, still be at risk for venous thrombosis due to another genetic predisposition including the Factor II (Prothrombin 55955RW) mutation or either of the 5, 10-methylenetetrahydr ofolate reductase (MTHFR) mutations (677T and S8781S) Additional molecular testing is available for these [...] which predicts a single amino acid replacement ([id number]) at one of three activated protein C [...] in the Factor V gene by the clypdr Factor V test that utilizes [employer]Plus chemistry for detecting gene-specific sequences. Target amplification [...] Invader and Cleavase are registered trademarks of [employer] This test is performed pursuant to an agreement with [employer] Electronically Signed Out Ravinder Pratt M.D. Normal [facility] Comment on above: Performed By: #### P PPFVL ####[address] [id number] Lab Director: Stas Irving MD DNA Testing (NOTE) [id number] [facility] MOLECULAR PATHOLOGY LABORATORY [address] [place], [place] [address] FACTOR II (PROTHROMBIN) MUTATION ANALYSIS REPORT [facility] Aron Llanes MD, Ravinder Pratt MD Specimen(s) Received: Peripheral blood, PTI Clinical Information: CVA RESULTS: MOLECULAR GENETIC DIAGNOSIS: Negative for Prothrombin 33456I Mutation INTERPRETATION: The Factor II (Prothrombin) mutation (82918XA) [c.*97G>A] was not detected in this study. This patient may, however, still be at risk for venous thrombosis due to another genetic predisposition including the Factor V Leiden (1691GA) mutation or either of the 5, 10-methylenetetrahydr ofolate reductase (MTHFR) mutations (677T and X0790A). Additional molecular testing is available for these [...] been identified in exon 14 at position 18215 of the prothrombin gene (56561RY). This allele has a population frequency of 1.2% and is associated with a 2.8 fold increased risk of venous thrombosis in individuals of [place] ancestry. Patient DNA is assayed for the presence of wild type or mutant gene sequences in the Factor II (Prothrombin) gene by the Invader Factor II test that utilizes [employer] chemistry for detecting gene-specific sequences. Target amplification [...] Invader and Cleavase are registered trademarks of [employer] This test is performed pursuant to an agreement with [employer] Electronically Signed Out Ravinder Pratt M.D. Normal [facility] Comment on above: Performed By: #### P PPPT ####[facility] StudioPibxjqvzlaid3530 [place] [address] lab Director: Stas Irving MD Homocysteineon 06-09-2019 Homocysteine 9.4 umol/L Normal <15.0 [facility] Comment on above: Performed By: #### H OCYS, APA, PTT, PT, FA8, DRVT, PROCAC, PROSAC ####[facility] Vwvtdsqgegit4586 [place] [address] Lab Director: Stas Irving MD Homocysteine, Serumon 2018 Homocysteine 9.4 umol/L <15.0 [place] POC Glucose Fingerstickon Glucose [Mass/Vol] 276 mg/dL High 75 - 110 mg/dL [place] Interpretation and review of laboratory results Abnormal [place] Glucose [Mass/Vol] 190 mg/dL High 75 - 110 mg/dL [place] Interpretation and review of laboratory results Abnormal [place] Basic Metabolic Panelon 05-22 Anion gap [Moles/Vol] 14 mmol/L 9 - 17 mmol/L [place] Bun/Cre Ratio NOT REPORTED [place] Calcium [Mass/Vol] 9.2 mg/dL 8.6 - 10. 4 mg/dL [place] Chloride [Moles/Vol] 96 mmol/L Low 98 - 10 7 mmol/L [place] CO2 [Moles/Vol] 24 mmol/L 20 - 31 mmol/L [place] Creatinine [Mass/Vol] 0.79 mg/dL 0.7 - 1.2 mg/dL [place] GFR >60 >60 mL/min [place] GFR Non- >60 >60 mL/min [place] GFR/1.73 sq M predicted among non-blacks MDRD (S/P/Bld) [Vol rate/Area] NOT REPORTED [place] GFR/1.73 sq M predicted among non-blacks MDRD (S/P/Bld) [Vol rate/Area] [place] Comment on above: Average GFR for 60-6 9 years old: 85 mL/min/1.73sq m Chronic Kidney Disease: <60 mL/min/1.73sq m Kidney failure: <15 mL/min/1.73sq m eGFR calculated using average adult body mass. Additional eGFR calculator available at: http://www.[employer]/multiple_crcl_2011.htm Glucose [Mass/Vol] 225 mg/dL High 70 - 99 mg/dL [place] Interpretation and review of laboratory results Abnormal [place] Potassium [Moles/Vol] 3.3 mmol/L Low 3.7 - 5.3 mmol/L [place] Sodium [Moles/Vol] 134 mmol/L Low 135 - 144 mmol/L [place] Urea nitrogen [Mass/Vol] 11 mg/dL 8 - 23 mg/dL [place] Basic Metabolic Profon 06-08 (cont.) Normal [facility] Comment on above: Result Comment: Aver age GFR for 60-69 years old: 85 mL/min/1.73sq m Chronic Kidney Disease: <60 mL/min/1.73sq m Kidney failure: <15 mL/min/1.73sq m eGFR calculated using average adult body mass. Additional eGFR calculator available at: http://www.[employer]/multiple_crcl_2011.htm Performed By: #### S TROKE #### [facility] [employer] [address] [place] [address] [phone] Cab Supervisor: Stas Irving MD Anion gap [Moles/Vol] 14 mmol/L Normal 9-17 [facility] Comment on above: Performed By: #### S TROKE #### [facility] [employer] [address] [place] [address] [phone] Cab Supervisor: Stas Irving MD Calcium [Mass/Vol] 9.2 mg/dL Normal 8.6-10.4 [facility] Comment on above: Performed By: #### S TROKE #### [facility] [employer] [address] [place] [address] [phone] Cab Supervisor: Stas Irving MD Chloride [Moles/Vol] 96 mmol/L Low 98-107 [facility] Comment on above: Performed By: #### S TROKE #### [facility] [employer] [address] [place] [address] [phone] Cab Supervisor: Stas Irving MD CO2 [Moles/Vol] 24 mmol/L Normal 20-31 [facility] Comment on above: Performed By: #### S TROKE #### [address] [address] Cab Supervisor: Stas Irving MD Creatinine [Mass/Vol] 0.79 mg/dL Normal 0.70-1.20 [facility] Comment on above: Performed By: #### S TROKE #### [address] [address] Cab Supervisor: Stas Irving MD GFR, Amer >60 Normal >60 [facility] Comment on above: Performed By: #### S TROKE #### [address] [address] Cab Supervisor: Stas Irving MD GFR,non Amer >60 Normal >60 [facility] Comment on above: Performed By: #### S TROKE #### [address] [address] Cab Supervisor: Stas Irving MD Glucose [Mass/Vol] 225 mg/dL High 70-99 [facility] Comment on above: Performed By: #### S TROKE #### [address] [address] Cab Supervisor: Stas Irving MD Potassium [Moles/Vol] 3.3 mmol/L Low 3.7-5.3 [facility] Comment on above: Performed By: #### S TROKE #### [address] [address] Cab Supervisor: Stas Irving MD Sodium [Moles/Vol] 134 mmol/L Low 135-144 [facility] Comment on above: Performed By: #### S TROKE #### [address] [address] Cab Supervisor: Stas Irving MD Urea nitrogen [Mass/Vol] 11 mg/dL Normal 8- [facility] Comment on above: Performed By: #### S TROKE #### [facility] [address] [place], [place] [phone] Cab Supervisor: Stas Irving MD BUN/CRE Ratio NOT REPORTED Normal - [facility] Comment on above: Performed By: #### S TROKE #### [facility] [address] [place], [place] [phone] Cab Supervisor: Stas Irving MD Staging: NOT REPORTED Normal [facility] Comment on above: Performed By: #### S TROKE #### [facility] [address] [place], [place] [phone] Cab Supervisor: Stas Irving MD CBC Auto Differentialon 05-22 Basophils (Bld) [#/Vol] 0.06 10*3/uL [place] Basophils/100 WBC (Bld) 1 % 0 - 2 % [place] Differential Type NOT REPORTED [place] Eosinophils (Bld) [#/Vol] 0.56 10*3/uL [place] Eosinophils/100 WBC (Bld) 8 % High 1 - 4 % [place] Erythrocyte distribution width (RBC) [Ratio] 13.9 % 11.8 - 14.4 % [place] Hematocrit (Bld) [Volume fraction] 50.9 % High 40.7 - 50.3 % [place] Hemoglobin (Bld) [Mass/Vol] 16.8 g/dL 13 - 17 g/dL [place] Immature granulocytes (Bld) [#/Vol] 1 % High 0 [place] Immature granulocytes (Bld) [#/Vol] 0.04 10*3/uL [place] Interpretation and review of laboratory results Abnormal [place] Lymphocytes (Bld) [#/Vol] 2.28 10*3/uL [place] Lymphocytes/100 WBC (Bld) 32 % 24 - 43 % [place] MCH (RBC) [Entitic mass] 28.6 pg 25.2 - 33.5 pg [place] MCHC (RBC) [Mass/Vol] 33.0 g/dL 28.4 - 34.8 g/dL [place] MCV (RBC) [Entitic vol] 86.6 fL 82.6 - 102.9 fL [place] Monocytes (Bld) [#/Vol] 0.79 10*3/uL [place] Monocytes/100 WBC (Bld) 11 % 3 - 12 % [place] Platelet mean volume (Bld) [Entitic vol] 12.0 fL 8.1 - 13.5 fL [place] Platelets (Bld) [#/Vol] 285 10*3/uL [place] Platelets (Bld) [#/Vol] NOT REPORTED [place] RBC (Bld) [#/Vol] 5.88 10*6/uL High 4.21 - 5.7 7 m/uL [place] RBC morphology finding Nom (Bld) NOT REPORTED [place] Segmented neutrophils/100 WBC (Bld) 47 % 36 - 65 % [place] Segs Absolute 3.38 [place] WBC (Bld) [#/Vol] 7.1 10*3/uL [place] WBC (Bld) [#/Vol] 0.3 10*3/uL High 0.0 per 10 0 WBC [place] WBC Morphology NOT REPORTED [place] CBC with Diffon 06-08-2019 Abs. Basophil 0.06 k/uL Normal 0.00-0.20 [facility] Comment on above: Performed By: #### S MAGDY #### [employer] [address] [place], [place] [phone] Cab Supervisor: Stas Irving MD Abs.Imm.Granulocyte 0.04 k/uL Normal 0.00-0.30 [facility] Comment on above: Performed By: #### S TROKE #### [address] [address] Cab Supervisor: Stas Irving MD Abs.Neutrophil (Seg) 3.38 k/uL Normal 1.50-8.10 [facility] Comment on above: Performed By: #### S TROKE #### [address] [address] Cab Supervisor: Stas Irving MD Basophils/100 WBC (Bld) 1 % Normal 0-2 [facility] Comment on above: Performed By: #### S TOREYKE #### [address] [address] Cab Supervisor: Stas Irving MD Eosinophils (Bld) [#/Vol] 0.56 10*3/uL High 0.00-0.44 [facility] Comment on above: Performed By: #### S TROKE #### [address] [address] Cab Supervisor: Stas Irving MD Eosinophils/100 WBC (Bld) 8 % High 1-4 [facility] Comment on above: Performed By: #### S TROKE #### [address] [address] Cab Supervisor: Stas Irving MD Erythrocyte distribution width (RBC) [Ratio] 13.9 % Normal 11.8-14.4 [facility] Comment on above: Performed By: #### S TROKE #### [address] [address] Cab Supervisor: Stas Irving MD Hematocrit (Bld) [Volume fraction] 50.9 % High 40.7-50.3 [facility] Comment on above: Performed By: #### S TROKE #### [address] [phone] Cab Supervisor: Stas Irving MD Hemoglobin (Bld) [Mass/Vol] 16.8 g/dL Normal 13.0-17.0 [facility] Comment on above: Performed By: #### S MAGDY #### [address] [address] Cab Supervisor: Stas Irving MD Immature granulocytes (Bld) [#/Vol] 1 % High 0 [facility] Comment on above: Performed By: #### S MAGDY #### [address] [address] Cab Supervisor: Stas Irving MD Lymphocytes (Bld) [#/Vol] 2.28 10*3/uL Normal 1.10-3.70 [facility] Comment on above: Performed By: #### S MAGDY #### [address] [address] Cab Supervisor: Stas Irving MD Lymphocytes/100 WBC (Bld) 32 % Normal 24-43 [facility] Comment on above: Performed By: #### S MAGDY #### [address] [address] Cab Supervisor: Stas Irving MD MCH (RBC) [Entitic mass] 28.6 pg Normal 25.2-33.5 [facility] Comment on above: Performed By: #### S MAGDY #### [address] [address] Cab Supervisor: Stas Irving MD MCHC (RBC) [Mass/Vol] 33.0 g/dL Normal 28.4-34.8 [facility] Comment on above: Performed By: #### S MAGDY #### [address] [address] Cab Supervisor: Stas Irving MD MCV (RBC) [Entitic vol] 86.6 fL Normal 82.6-102.9 [facility] Comment on above: Performed By: #### S TROKE #### [address] [address] Cab Supervisor: Stas Irving MD Monocytes (Bld) [#/Vol] 0.79 10*3/uL Normal 0.10-1.20 [facility] Comment on above: Performed By: #### S TROKE #### [address] [address] Cab Supervisor: Stas Irving MD Monocytes/100 WBC (Bld) 11 % Normal 3-12 [facility] Comment on above: Performed By: #### S TROKE #### [address] [address] Cab Supervisor: Stas Irving MD Neutrophil (Seg) 47 % Normal 36-65 [facility] Comment on above: Performed By: #### S TROKE #### [address] [address] Cab Supervisor: Stas Irving MD NRBC Automated 0.3 per 100 WBC High 0.0 [facility] Comment on above: Performed By: #### S TROKE #### [address] [address] Cab Supervisor: Stas Irving MD Platelet mean volume (Bld) [Entitic vol] 12.0 fL Normal 8.1-13.5 [facility] Comment on above: Performed By: #### S TROKE #### [address] [address] Cab Supervisor: Stas Irving MD Platelets (Bld) [#/Vol] 285 10*3/uL Normal 138-453 [facility] Comment on above: Performed By: #### S TROKE #### [address] [address] Cab Supervisor: Stas Irving MD RBC (Bld) [#/Vol] 5.88 10*6/uL High 4.21-5.77 [facility] Comment on above: Performed By: #### S TOREYKE #### [address] [address] Cab Supervisor: Stas Irving MD WBC (Bld) [#/Vol] 7.1 10*3/uL Normal 3.5-11.3 [facility] Comment on above: Performed By: #### S MAGDY #### [address] [address] Cab Supervisor: Stas Irving MD Auto Diff Performed NOT REPORTED Normal [facility] Comment on above: Performed By: #### S MAGDY #### [address] [address] Cab Supervisor: Stas Irving MD Platelets (Bld) [#/Vol] NOT REPORTED Normal [facility] Comment on above: Performed By: #### S MAGDY #### [address] [address] Cab Supervisor: Stas Irving MD RBC morphology finding Nom (Bld) NOT REPORTED Normal [facility] Comment on above: Performed By: #### S TOREYKE #### [address] [address] Cab Supervisor: Stas Irving MD WBC Morphology NOT REPORTED Normal [facility] Comment on above: Performed By: #### S TOREYKE #### [address] [address] Cab Supervisor: Stas Irving MD Magnesiumon 06-08-2019 Magnesium [Mass/Vol] 2.0 mg/dL Normal 1.6-2.6 [facility] Comment on above: Performed By: #### S TROKE #### [employer] [address] [place] [address] Cab Supervisor: Stas Irving MD Magnesium [Mass/Vol] 2.0 mg/dL 1.6 - 2 .6 mg/dL [place] POC Glucose Fingerstickon Glucose [Mass/Vol] 288 mg/dL High 75 - 110 mg/dL [place] Interpretation and review of laboratory results Abnormal [place] Glucose [Mass/Vol] 350 mg/dL High 75 - 110 mg/dL [place] Interpretation and review of laboratory results Abnormal [place] Glucose [Mass/Vol] 238 mg/dL High 75 - 110 mg/dL [place] Interpretation and review of laboratory results Abnormal [place] Glucose [Mass/Vol] 244 mg/dL High 75 - 110 mg/dL [place] Interpretation and review of laboratory results Abnormal [place] Phosphoruson 06-08-2019 Phosphate [Mass/Vol] 4.5 mg/dL 2.5 - 4 .5 mg/dL [place] Phosphorus, Inorg.on 019 Phosphorus, Inorg. 4.5 mg/dL Normal 2.5-4.5 [facility] Comment on above: Performed By: #### C DP, BMP, MG, CINTHYA ####[employer] [id number] [place] [address] Lab Director: Stas Irving MD VL DUP LOWER EXTREMITY VENOU S BILATERALon 06-08-2019 [facility] Vascular Lower Extremities DVT Study Procedure Patient Name [facility] Date of Study 06/08/2019 EUNICE Alcantara Date of 1955 Gender Male Age 63 year(s) Race Black Room Number 0515 Height: 72 inch, 182.88 cm Corporate ID [id number] Weight: 220 pounds, 99.8 kg # Patient Acct [id number] BSA: 2.22 m^2 BMI: 29.84 kg/m^2 # MR # [id number] Deputy [employer] Rina Frausto Interpreting [place]ban[place], Omer Physician Referring Referring Physician DYLON VICK APRN-[facility] Nurse Practitioner Procedure Type of Study: Veins: [...] ! ! + -------+------+------ + + [facility] [place], [place] Nav, Mhpn Incoming Cardio Results From [employer] - 06/08/2019 6:36 PM EDT [facility] Vascular Lower Extremities DVT Study Procedure Patient Name LYDIA Date of Study 06/08/2019 EUNICE Alcantara Date of 1955 Gender Male Age 63 year(s) Race Black Room Number 0515 Height: 72 inch, 182.88 cm Corporate ID [id number] Weight: 220 pounds, 99.8 kg # Patient Acct [id number] BSA: 2.22 m^2 BMI: 29.84 kg/m^2 # MR # [id number] Deputy [employer] Rina Frausto Interpreting Omer Oneil Physician Referring Referring Physician DYLON VICK APRN-DIRECTOR ZONE Nurse Practitioner Procedure Type of Study: Veins: [...] !Phasic! ! ! + -------+------+------ + + [facility] [place] [place] Basic Metabolic Panelon 05-22 Anion gap [Moles/Vol] 12 mmol/L 9 - 17 mmol/L [facility] [place] Bun/Cre Ratio NOT REPORTED [place] Calcium [Mass/Vol] 9.3 mg/dL 8.6 - 10. 4 mg/dL [facility] [place] Chloride [Moles/Vol] 97 mmol/L Low 98 - 10 7 mmol/L [facility] [place] CO2 [Moles/Vol] 26 mmol/L 20 - 31 mmol/L [facility] [place] Creatinine [Mass/Vol] 0.76 mg/dL 0.7 - 1.2 mg/dL [facility] [place] GFR >60 >60 mL/min [facility], [place] GFR Non- >60 >60 mL/min [facility] [place] GFR/1.73 sq M predicted among non-blacks MDRD (S/P/Bld) [Vol rate/Area] NOT REPORTED [place] GFR/1.73 sq M predicted among non-blacks MDRD (S/P/Bld) [Vol rate/Area] [place] Comment on above: Average GFR for 60-6 9 years old: 85 mL/min/1.73sq m Chronic Kidney Disease: <60 mL/min/1.73sq m Kidney failure: <15 mL/min/1.73sq m eGFR calculated using average adult body mass. Additional eGFR calculator available at: http://www.globalrph.com/multiple_crcl_2012.htm Glucose [Mass/Vol] 232 mg/dL High 70 - 99 mg/dL [place] Potassium [Moles/Vol] 3.4 mmol/L Low 3.7 - 5.3 mmol/L [place] Sodium [Moles/Vol] 135 mmol/L 135 - 144 mmol/L [place] Urea nitrogen [Mass/Vol] 8 mg/dL 8 - 23 mg/dL [place] Basic Metabolic Profon 06-07 (cont.) Normal [facility] Comment on above: Result Comment: Aver age GFR for 60-69 years old: 85 mL/min/1.73sq m Chronic Kidney Disease: <60 mL/min/1.73sq m Kidney failure: <15 mL/min/1.73sq m eGFR calculated using average adult body mass. Additional eGFR calculator available at: http://www.[employer]/multiple_crcl_2011.htm Performed By: #### S TROKE #### [facility] [place] [address] Cab Supervisor: Stas Irving MD Anion gap [Moles/Vol] 12 mmol/L Normal -17 [facility] Comment on above: Performed By: #### S TROKE #### [facility] [address] [place] [address] Cab Supervisor: Stas Irving MD Calcium [Mass/Vol] 9.3 mg/dL Normal 8.6-10.4 [facility] Comment on above: Performed By: #### S TROKE #### [employer] [facility] [place] [address] Cab Supervisor: Stas Irving MD Chloride [Moles/Vol] 97 mmol/L Low 98-107 [facility] Comment on above: Performed By: #### S TROKE #### [employer] [address] [place] [address] Cab Supervisor: Stas Irving MD CO2 [Moles/Vol] 26 mmol/L Normal 20-31 [facility] Comment on above: Performed By: #### S TROKE #### [address] [address] Cab Supervisor: Stas Irving MD Creatinine [Mass/Vol] 0.76 mg/dL Normal 0.70-1.20 [facility] Comment on above: Performed By: #### S TROKE #### [address] [address] Cab Supervisor: Stas Irving MD GFR, Amer >60 Normal >60 [facility] Comment on above: Performed By: #### S TROKE #### [address] [address] Cab Supervisor: Stas Irving MD GFR,non Amer >60 Normal >60 [facility] Comment on above: Performed By: #### S TROKE #### [address] [address] Cab Supervisor: Stas Irving MD Glucose [Mass/Vol] 232 mg/dL High 70-99 [facility] Comment on above: Performed By: #### S TROKE #### [address] [address] Cab Supervisor: Stas Irving MD Potassium [Moles/Vol] 3.4 mmol/L Low 3.7-5.3 [facility] Comment on above: Performed By: #### S TROKE #### [address] [address] Cab Supervisor: Stas Irving MD Sodium [Moles/Vol] 135 mmol/L Normal 135-144 [facility] Comment on above: Performed By: #### S TROKE #### [facility] [employer] [address] [place] [address] Cab Supervisor: Stas Irving MD Urea nitrogen [Mass/Vol] 8 mg/dL Normal 8-23 [facility] Comment on above: Performed By: #### S TROKE #### [facility] [address] [place] [address] Cab Supervisor: Stas Irving MD BUN/CRE Ratio NOT REPORTED Normal 9-20 [facility] Comment on above: Performed By: #### S TROKE #### [facility] [address] [place] [address] Cab Supervisor: Stas Irving MD Staging: NOT REPORTED Normal [facility] Comment on above: Performed By: #### S TROKE #### [facility] [address] [place], [place] [phone] Cab Supervisor: Stas Irving MD CBC Auto Differentialon 05-22 Basophils (Bld) [#/Vol] 0.08 10*3/uL [place] Basophils/100 WBC (Bld) 1 % 0 - 2 % [place] Differential Type NOT REPORTED [place] Eosinophils (Bld) [#/Vol] 0.59 10*3/uL High [place] Eosinophils/100 WBC (Bld) 8 % High 1 - 4 % [place] Erythrocyte distribution width (RBC) [Ratio] 13.6 % 11.8 - 14.4 % [place] Hematocrit (Bld) [Volume fraction] 51.5 % High 40.7 - 50.3 % [place] Hemoglobin (Bld) [Mass/Vol] 16.7 g/dL 13 - 17 g/dL [place] Immature granulocytes (Bld) [#/Vol] 0 % 0 [place] Immature granulocytes (Bld) [#/Vol] 10*3/uL [place] Interpretation and review of laboratory results Abnormal [place] Lymphocytes (Bld) [#/Vol] 2.32 10*3/uL [place] Lymphocytes/100 WBC (Bld) 32 % 24 - 43 % [place] MCH (RBC) [Entitic mass] 28.2 pg 25.2 - 33.5 pg [place] MCHC (RBC) [Mass/Vol] 32.4 g/dL 28.4 - 34.8 g/dL [place] MCV (RBC) [Entitic vol] 86.8 fL 82.6 - 102.9 fL [place] Monocytes (Bld) [#/Vol] 0.66 10*3/uL [place] Monocytes/100 WBC (Bld) 9 % 3 - 12 % [place] Platelet mean volume (Bld) [Entitic vol] 10.9 fL 8.1 - 13.5 fL [place] Platelets (Bld) [#/Vol] 196 10*3/uL [place] Platelets (Bld) [#/Vol] NOT REPORTED [place] RBC (Bld) [#/Vol] 5.93 10*6/uL High 4.21 - 5.7 7 m/uL [place] RBC morphology finding Nom (Bld) NOT REPORTED [place] Segmented neutrophils/100 WBC (Bld) 50 % 36 - 65 % [place] Segs Absolute 3.69 [place] WBC (Bld) [#/Vol] 7.4 10*3/uL [place] WBC (Bld) [#/Vol] 0.0 10*3/uL 0.0 per 10 0 WBC [place] WBC Morphology NOT REPORTED [place] CBC with Diffon 06-07-2019 Abs. Basophil 0.08 k/uL Normal 0.00-0.20 [facility] Comment on above: Performed By: #### S MAGDY #### [employer] [address] [place] [id number] Cab Supervisor: Stas Irving MD Abs.Imm.Granulocyte <0.03 Normal 0.00-0.30 [facility] Comment on above: Performed By: #### S TROKE #### [address] [address] Cab Supervisor: Stas Irving MD Abs.Neutrophil (Seg) 3.69 k/uL Normal 1.50-8.10 [facility] Comment on above: Performed By: #### S TOREYKE #### [address] [address] Cab Supervisor: Stas Irving MD Basophils/100 WBC (Bld) 1 % Normal 0-2 [facility] Comment on above: Performed By: #### S TOREYKE #### [address] [address] Cab Supervisor: Stas Irving MD Eosinophils (Bld) [#/Vol] 0.59 10*3/uL High 0.00-0.44 [facility] Comment on above: Performed By: #### S TOREYKE #### [address] [address] Cab Supervisor: Stas Irving MD Eosinophils/100 WBC (Bld) 8 % High 1-4 [facility] Comment on above: Performed By: #### S TOREYKE #### [address] [address] Cab Supervisor: Stas Irving MD Erythrocyte distribution width (RBC) [Ratio] 13.6 % Normal 11.8-14.4 [facility] Comment on above: Performed By: #### S TROKE #### [address] [address] Cab Supervisor: Stas Irving MD Hematocrit (Bld) [Volume fraction] 51.5 % High 40.7-50.3 [facility] Comment on above: Performed By: #### S TOREYKE #### [address] [address] Cab Supervisor: Stas Irving MD Hemoglobin (Bld) [Mass/Vol] 16.7 g/dL Normal 13.0-17.0 [facility] Comment on above: Performed By: #### S MAGDY #### [address] [address] Cab Supervisor: Stas Irving MD Immature granulocytes (Bld) [#/Vol] 0 % Normal 0 [facility] Comment on above: Performed By: #### S MAGDY #### [address] [address] Cab Supervisor: Stas Irving MD Lymphocytes (Bld) [#/Vol] 2.32 10*3/uL Normal 1.10-3.70 [facility] Comment on above: Performed By: #### S MAGDY #### [address] [address] Cab Supervisor: Stas Irving MD Lymphocytes/100 WBC (Bld) 32 % Normal 24-43 [facility] Comment on above: Performed By: #### S MAGDY #### [address] [address] Cab Supervisor: Stas Irving MD MCH (RBC) [Entitic mass] 28.2 pg Normal 25.2-33.5 [facility] Comment on above: Performed By: #### S MAGDY #### [address] [address] Cab Supervisor: Stas Irving MD MCHC (RBC) [Mass/Vol] 32.4 g/dL Normal 28.4-34.8 [facility] Comment on above: Performed By: #### S MAGDY #### [address] [address] Cab Supervisor: Stas Irving MD MCV (RBC) [Entitic vol] 86.8 fL Normal 82.6-102.9 [facility] Comment on above: Performed By: #### S TROKE #### [address] [address] Cab Supervisor: Stas Irving MD Monocytes (Bld) [#/Vol] 0.66 10*3/uL Normal 0.10-1.20 [facility] Comment on above: Performed By: #### S TROKE #### [address] [address] Cab Supervisor: Stas Irving MD Monocytes/100 WBC (Bld) 9 % Normal 3-12 [facility] Comment on above: Performed By: #### S TOREYKE #### [address] [address] Cab Supervisor: Stas Irving MD Neutrophil (Seg) 50 % Normal 36-65 [facility] Comment on above: Performed By: #### S TOREYKE #### [address] [address] Cab Supervisor: Stas Irving MD NRBC Automated 0.0 per 100 WBC Normal 0.0 [facility] Comment on above: Performed By: #### S TOREYKE #### [address] [address] Cab Supervisor: Stas Irving MD Platelet mean volume (Bld) [Entitic vol] 10.9 fL Normal 8.1-13.5 [facility] Comment on above: Performed By: #### S TROKE #### [address] [address] Cab Supervisor: Stas Irving MD Platelets (Bld) [#/Vol] 196 10*3/uL Normal 138-453 [facility] Comment on above: Performed By: #### S TROKE #### [address] [address] Cab Supervisor: Stas Irving MD RBC (Bld) [#/Vol] 5.93 10*6/uL High 4.21-5.77 [facility] Comment on above: Performed By: #### S TROKE #### [address] [address] Cab Supervisor: Stas Irving MD WBC (Bld) [#/Vol] 7.4 10*3/uL Normal 3.5-11.3 [facility] Comment on above: Performed By: #### S TOREYKE #### [address] [address] Cab Supervisor: Stas Irving MD Auto Diff Performed NOT REPORTED Normal [facility] Comment on above: Performed By: #### S TOREYKE #### [address] [address] Cab Supervisor: Stas Irving MD Platelets (Bld) [#/Vol] NOT REPORTED Normal [facility] Comment on above: Performed By: #### S TOREYKE #### [address] [address] Cab Supervisor: Stas Irving MD RBC morphology finding Nom (Bld) NOT REPORTED Normal [facility] Comment on above: Performed By: #### S TROKE #### [address] [address] Cab Supervisor: Stas Irving MD WBC Morphology NOT REPORTED Normal [facility] Comment on above: Performed By: #### S TROKE #### [address] [address] Cab Supervisor: Stas Irving MD CT HEAD WO CONTRASTon [...] Randolph Bustos MD 06/06/19 Final result Normal [facility] MAGNESIUMon 06-07-2019 Magnesium [Mass/Vol] 1.9 mg/dL 1.6 - 2 .6 mg/dL [place] MRI BRAIN WO CONTRASTon 05-22 MRI BRAIN [...] Cas Berger MD 06/07/19 Final result Normal [facility] MRI Brain WO Contraston 05-22 1. Small [...] 06/07/2019to be communicated to a licensed caregiver. [facility] MRI OF THE BRAIN WITHOUT CONTRAST [...] the left. BONES/SOFT TISSUES: No significant abnormalities. [facility] [place], [place] Nav, pn Incoming Radiant Results From [employer] - 06/07/2019 11:19 AM EDT EXAMINATION: MRI [...] 06/07/2019to be communicated to a licensed caregiver. [place] Magnesiumon 06-07-2019 Magnesium [Mass/Vol] 1.9 mg/dL Normal 1.6-2.6 [facility] Comment on above: Performed By: #### S MAGDY #### [facility] [employer] [address] [place], [place] [id number] Cab Supervisor: Stas Irving MD Otheron 06-07-2019 Interpretation and review of laboratory results Abnormal [place] PHOSPHORUSon 06-07-2019 Phosphate [Mass/Vol] 5.4 mg/dL High 2.5 - 4 .5 mg/dL [place] POC Glucose Fingerstickon Glucose [Mass/Vol] 309 mg/dL High 75 - 110 mg/dL [place] Interpretation and review of laboratory results Abnormal [place] Glucose [Mass/Vol] 330 mg/dL High 75 - 110 mg/dL [place] Interpretation and review of laboratory results Abnormal [place] Glucose [Mass/Vol] 251 mg/dL High 75 - 110 mg/dL [place] Interpretation and review of laboratory results Abnormal [place] Glucose [Mass/Vol] 273 mg/dL High 75 - 110 mg/dL [place] Interpretation and review of laboratory results Abnormal [place] Phosphorus, Inorg.on 019 Phosphorus, Inorg. 5.4 mg/dL High 2.5-4.5 [facility] Comment on above: Performed By: #### S MAGDY #### [facility] [employer] [address] [place] [address] Cab Supervisor: Stas Irving MD BASIC METABOLIC PANELon 05-22 Anion gap [Moles/Vol] 16 mmol/L 9 - 17 mmol/L [place] Bun/Cre Ratio NOT REPORTED [place] Calcium [Mass/Vol] 9.2 mg/dL 8.6 - 10. 4 mg/dL [place] Chloride [Moles/Vol] 101 mmol/L 98 - 10 7 mmol/L [place] CO2 [Moles/Vol] 20 mmol/L 20 - 31 mmol/L [place] Creatinine [Mass/Vol] 0.48 mg/dL Low 0.7 - 1.2 mg/dL [place] GFR >60 >60 mL/min [place] GFR Non- >60 >60 mL/min [place] GFR/1.73 sq M predicted among non-blacks MDRD (S/P/Bld) [Vol rate/Area] NOT REPORTED [place] GFR/1.73 sq M predicted among non-blacks MDRD (S/P/Bld) [Vol rate/Area] [place] Comment on above: Average GFR for 60-6 9 years old: 85 mL/min/1.73sq m Chronic Kidney Disease: <60 mL/min/1.73sq m Kidney failure: <15 mL/min/1.73sq m eGFR calculated using average adult body mass. Additional eGFR calculator available at: http://www.[employer]/multiple_crcl_2012.htm Glucose [Mass/Vol] 264 mg/dL High 70 - 99 mg/dL [place] Potassium [Moles/Vol] 3.9 mmol/L 3.7 - 5.3 mmol/L [place] Sodium [Moles/Vol] 137 mmol/L 135 - 144 mmol/L [place] Urea nitrogen [Mass/Vol] 5 mg/dL Low 8 - 23 mg/dL [place] Basic Metabolic Profon 06-06 (cont.) Normal [facility] Comment on above: Result Comment: Aver age GFR for 60-69 years old: 85 mL/min/1.73sq m Chronic Kidney Disease: <60 mL/min/1.73sq m Kidney failure: <15 mL/min/1.73sq m eGFR calculated using average adult body mass. Additional eGFR calculator available at: http://www.[employer]/multiple_crcl_2012.htm Performed By: #### C DP, BMP, LIPR, MG, CINTHYA, GLYHGB #### [address] [address] Cab Supervisor: Stas Irving MD Anion gap [Moles/Vol] 16 mmol/L Normal 9-17 [facility] Comment on above: Performed By: #### C DP, BMP, LIPR, MG, CINTHYA, GLYHGB #### [address] [address] Cab Supervisor: Stas Irving MD Calcium [Mass/Vol] 9.2 mg/dL Normal 8.6-10.4 [facility] Comment on above: Performed By: #### C DP, BMP, LIPR, MG, CINTHYA, GLYHGB #### [address] [address] Cab Supervisor: Stas Irving MD Chloride [Moles/Vol] 101 mmol/L Normal 98-107 [facility] Comment on above: Performed By: #### C DP, BMP, LIPR, MG, CINTHYA, GLYHGB #### [address] [address] Cab Supervisor: Stas Irving MD CO2 [Moles/Vol] 20 mmol/L Normal 20-31 [facility] Comment on above: Performed By: #### C DP, BMP, LIPR, MG, CINTHYA, GLYHGB #### [facility] [employer] [address] [place] [address] Cab Supervisor: Stas Irving MD Creatinine [Mass/Vol] 0.48 mg/dL Low 0.70-1.20 [facility] Comment on above: Performed By: #### C DP, BMP, LIPR, MG, CINTHYA, GLYHGB #### [facility] [employer] [address] [place] [address] Cab Supervisor: Stas Irving MD GFR, Amer >60 Normal >60 [facility] Comment on above: Performed By: #### C DP, BMP, LIPR, MG, CINTHYA, GLYHGB #### [facility] [employer] [address] [place] [address] Cab Supervisor: Stas Irving MD GFR,non Amer >60 Normal >60 [facility] Comment on above: Performed By: #### C DP, BMP, LIPR, MG, CINTHYA, GLYHGB #### [facility] [employer] [address] [place] [address] Cab Supervisor: Stas Irving MD Glucose [Mass/Vol] 264 mg/dL High 70-99 [facility] Comment on above: Performed By: #### C DP, BMP, LIPR, MG, CINTHYA, GLYHGB #### [facility] [employer] [address] [place] [address] Cab Supervisor: Stas Irving MD Potassium [Moles/Vol] 3.9 mmol/L Normal 3.7-5.3 [facility] Comment on above: Performed By: #### C DP, BMP, LIPR, MG, CINTHYA, GLYHGB #### [facility] [employer] [address] [place] [address] Cab Supervisor: Stas Irving MD Sodium [Moles/Vol] 137 mmol/L Normal 135-144 [facility] Comment on above: Performed By: #### C DP, BMP, LIPR, MG, CINTHYA, GLYHGB #### [employer] [address] [place], [place] [phone] Cab Supervisor: Stas Irving MD Urea nitrogen [Mass/Vol] 5 mg/dL Low 8- [facility] Comment on above: Performed By: #### C DP, BMP, LIPR, MG, CINTHYA, GLYHGB #### [facility] [address] [place], [place] [phone] Cab Supervisor: Stas Irving MD BUN/CRE Ratio NOT REPORTED Normal 05-11 [facility] Comment on above: Performed By: #### C DP, BMP, LIPR, MG, CINTHYA, GLYHGB #### [facility] [employer] [facility] [place], [place] [id number] Cab Supervisor: Stas Irving MD Staging: NOT REPORTED Normal [facility] Comment on above: Performed By: #### C DP, BMP, LIPR, MG, CINTHYA, GLYHGB #### [facility] [employer] [address] [place] [address] [phone] Cab Supervisor: Stas Irving MD CBC WITH AUTO DIFFERENTIALon 06-06-2019 Basophils (Bld) [#/Vol] 0.08 10*3/uL [place] Basophils/100 WBC (Bld) 1 % 0 - 2 % [place] Differential Type NOT REPORTED [place] Eosinophils (Bld) [#/Vol] 0.62 10*3/uL [place] Eosinophils/100 WBC (Bld) 9 % High 1 - 4 % [place] Erythrocyte distribution width (RBC) [Ratio] 13.8 % 11.8 - 14.4 % [place] Hematocrit (Bld) [Volume fraction] 49.9 % 40.7 - 50.3 % [place] Hemoglobin (Bld) [Mass/Vol] 16.4 g/dL 13 - 17 g/dL [place] Immature granulocytes (Bld) [#/Vol] 10*3/uL [place] Immature granulocytes (Bld) [#/Vol] 0 % 0 [place] Interpretation and review of laboratory results Abnormal [place] Lymphocytes (Bld) [#/Vol] 2.13 10*3/uL [place] Lymphocytes/100 WBC (Bld) 29 % 24 - 43 % [place] MCH (RBC) [Entitic mass] 28.6 pg 25.2 - 33.5 pg [place] MCHC (RBC) [Mass/Vol] 32.9 g/dL 28.4 - 34.8 g/dL [place] MCV (RBC) [Entitic vol] 86.9 fL 82.6 - 102.9 fL [place] Monocytes (Bld) [#/Vol] 0.62 10*3/uL [place] Monocytes/100 WBC (Bld) 9 % 3 - 12 % [place] Platelet mean volume (Bld) [Entitic vol] 10.1 fL 8.1 - 13.5 fL [place] Platelets (Bld) [#/Vol] 221 10*3/uL [place] Platelets (Bld) [#/Vol] NOT REPORTED [place] RBC (Bld) [#/Vol] 5.74 10*6/uL 4.21 - 5.7 7 m/uL [place] RBC morphology finding Nom (Bld) NOT REPORTED [place] Segmented neutrophils/100 WBC (Bld) 52 % 36 - 65 % [place] Segs Absolute 3.86 [place] WBC (Bld) [#/Vol] 0.0 10*3/uL 0.0 per 10 0 WBC [place] WBC (Bld) [#/Vol] 7.3 10*3/uL [place] WBC Morphology NOT REPORTED [place] CBC with Diffon 06-06-2019 Abs. Basophil 0.08 k/uL Normal 0.00-0.20 [facility] Comment on above: Performed By: #### C DP, BMP, LIPR, MG, CINTHYA, GLYHGB #### [address] [address] Cab Supervisor: Stas Irving MD Abs.Imm.Granulocyte <0.03 Normal 0.00-0.30 [facility] Comment on above: Performed By: #### C DP, BMP, LIPR, MG, CINTHYA, GLYHGB #### [place] [address] Cab Supervisor: Stas Irving MD Abs.Neutrophil (Seg) 3.86 k/uL Normal 1.50-8.10 [facility] Comment on above: Performed By: #### C DP, BMP, LIPR, MG, CINTHYA, GLYHGB #### [place] [address] Cab Supervisor: Stas Irving MD Basophils/100 WBC (Bld) 1 % Normal 0-2 [facility] Comment on above: Performed By: #### C DP, BMP, LIPR, MG, CINTHYA, GLYHGB #### [place] [address] Cab Supervisor: Stas Irving MD Eosinophils (Bld) [#/Vol] 0.62 10*3/uL High 0.00-0.44 [facility] Comment on above: Performed By: #### C DP, BMP, LIPR, MG, CINTHYA, GLYHGB #### [place] [address] Cab Supervisor: Stas Irving MD Eosinophils/100 WBC (Bld) 9 % High 1-4 [facility] Comment on above: Performed By: #### C DP, BMP, LIPR, MG, CINTHYA, GLYHGB #### [address] [address] Cab Supervisor: Stas Irving MD Erythrocyte distribution width (RBC) [Ratio] 13.8 % Normal 11.8-14.4 [facility] Comment on above: Performed By: #### C DP, BMP, LIPR, MG, CINTHYA, GLYHGB #### [facility] [employer] [address] [place] [address] Cab Supervisor: Stas Irving MD Hematocrit (Bld) [Volume fraction] 49.9 % Normal 40.7-50.3 [facility] Comment on above: Performed By: #### C DP, BMP, LIPR, MG, CINTHYA, GLYHGB #### [facility] [employer] [address] [place] [address] Cab Supervisor: Stas Irving MD Hemoglobin (Bld) [Mass/Vol] 16.4 g/dL Normal 13.0-17.0 [facility] Comment on above: Performed By: #### C DP, BMP, LIPR, MG, CINTHYA, GLYHGB #### [place] [address] Cab Supervisor: Stas Irving MD Immature granulocytes (Bld) [#/Vol] 0 % Normal 0 [facility] Comment on above: Performed By: #### C DP, BMP, LIPR, MG, CINTHYA, GLYHGB #### [place] [address] Cab Supervisor: Stas Irving MD Lymphocytes (Bld) [#/Vol] 2.13 10*3/uL Normal 1.10-3.70 [facility] Comment on above: Performed By: #### C DP, BMP, LIPR, MG, CINTHYA, GLYHGB #### [facility] [employer] [address] [place] [address] Cab Supervisor: Stas Irving MD Lymphocytes/100 WBC (Bld) 29 % Normal 24-43 [facility] Comment on above: Performed By: #### C DP, BMP, LIPR, MG, CINTHYA, GLYHGB #### [facility] [employer] [address] [place] [address] Cab Supervisor: Stas Irving MD MCH (RBC) [Entitic mass] 28.6 pg Normal 25.2-33.5 [facility] Comment on above: Performed By: #### C DP, BMP, LIPR, MG, CINTHYA, GLYHGB #### [address] [address] Cab Supervisor: Stas Irving MD MCHC (RBC) [Mass/Vol] 32.9 g/dL Normal 28.4-34.8 [facility] Comment on above: Performed By: #### C DP, BMP, LIPR, MG, CINTHYA, GLYHGB #### [place] [address] Cab Supervisor: Stas Irving MD MCV (RBC) [Entitic vol] 86.9 fL Normal 82.6-102.9 [facility] Comment on above: Performed By: #### C DP, BMP, LIPR, MG, CINTHYA, GLYHGB #### [address] [address] Cab Supervisor: Stas Irving MD Monocytes (Bld) [#/Vol] 0.62 10*3/uL Normal 0.10-1.20 [facility] Comment on above: Performed By: #### C DP, BMP, LIPR, MG, CINTHYA, GLYHGB #### [place] [address] Cab Supervisor: Stas Irving MD Monocytes/100 WBC (Bld) 9 % Normal 3-12 [facility] Comment on above: Performed By: #### C DP, BMP, LIPR, MG, CINTHYA, GLYHGB #### [address] [address] Cab Supervisor: Stas Irving MD Neutrophil (Seg) 52 % Normal 36-65 [facility] Comment on above: Performed By: #### C DP, BMP, LIPR, MG, CINTHYA, GLYHGB #### [address] [address] Cab Supervisor: Stas Irving MD NRBC Automated 0.0 per 100 WBC Normal 0.0 [facility] Comment on above: Performed By: #### C DP, BMP, LIPR, MG, CINTHYA, GLYHGB #### [address] [address] Cab Supervisor: Stas Irving MD Platelet mean volume (Bld) [Entitic vol] 10.1 fL Normal 8.1-13.5 [facility] Comment on above: Performed By: #### C DP, BMP, LIPR, MG, CINTHYA, GLYHGB #### [address] [address] Cab Supervisor: Stas Irving MD Platelets (Bld) [#/Vol] 221 10*3/uL Normal 138-453 [facility] Comment on above: Performed By: #### C DP, BMP, LIPR, MG, CINTHYA, GLYHGB #### [address] [address] Cab Supervisor: Stas Irving MD RBC (Bld) [#/Vol] 5.74 10*6/uL Normal 4.21-5.77 [facility] Comment on above: Performed By: #### C DP, BMP, LIPR, MG, CINTHYA, GLYHGB #### [facility] [employer] [address] [place] [phone] Cab Supervisor: Stas Irving MD WBC (Bld) [#/Vol] 7.3 10*3/uL Normal 3.5-11.3 [facility] Comment on above: Performed By: #### C DP, BMP, LIPR, MG, CINTHYA, GLYHGB #### [facility] [employer] [address] [place] [address] Cab Supervisor: Stas Irving MD Auto Diff Performed NOT REPORTED Normal [facility] Comment on above: Performed By: #### C DP, BMP, LIPR, MG, CINTHYA, GLYHGB #### [facility] [address] [place] [phone] Cab Supervisor: Stas Irving MD Platelets (Bld) [#/Vol] NOT REPORTED Normal [facility] Comment on above: Performed By: #### C DP, BMP, LIPR, MG, CINTHYA, GLYHGB #### [facility] [address] [place] [address] Cab Supervisor: Stas Irving MD RBC morphology finding Nom (Bld) NOT REPORTED Normal [facility] Comment on above: Performed By: #### C DP, BMP, LIPR, MG, CINTHYA, GLYHGB #### [facility] [employer] [address] [place] [phone] Cab Supervisor: Stas Irving MD WBC Morphology NOT REPORTED Normal [facility] Comment on above: Performed By: #### C DP, BMP, LIPR, MG, CINTHYA, GLYHGB #### [facility] [address] [place] [phone] Cab Supervisor: Stas Irving MD CT HEAD WO CONTRASTon [...] C Goyal MD 06/05/19 Final result Normal [facility] CT head without contraston 1 Nav, [facility] Incoming Radiant Results From [employer] - 06/06/2019 10:31 PM EDT EXAMINATION: CT [...] effect. 3. Redemonstration of multifocal remote infarcts. [facility] [place], [place] EXAMINATION: CT OF THE HEAD WITHOUT [...] interface is intact. No acute intracranial hemorrhage. [place] 1. No evidence of an acute evolving infarct. 2. No acute intracranial hemorrhage or global mass effect. 3. Redemonstration of multifocal remote infarcts. [place] CTA HEAD W CON AND CTA [...] C Goyal MD 06/05/19 Final result Normal [facility] EKG 12 Leadon 06-06-2019 Atrial Rate 81 BPM [place] P Elbert 67 degrees [place] P-R Interval 174 ms [place] Q-T Interval 378 ms [place] QRS Duration 90 ms [place] QTc Calculation (Bazett) 439 ms [place] R Elbert -15 degrees [facility] [place] T Elbert 24 degrees [facility] [place] Ventricular Rate 81 BPM [place] Normal sinus rhythm Nonspecific T wave abnormality Abnormal ECG No previous ECGs available [place] Nav, [employer] Incoming Ekg Results From [employer] - 06/06/2019 9:23 AM EDT Normal sinus rhythm Nonspecific T wave abnormality Abnormal ECG No previous ECGs available [place] Hemoglobin A1Con 06-06-2019 HbA1c (Bld) [Mass fraction] 306 mg/dL Normal [facility] Comment on above: Result Comment: The ADA and AACC recommend providing the estimated average glucose result to permit better patient understanding of their HBA1c result. Performed By: #### C DP, BMP, LIPR, MG, CINTHYA, GLYHGB #### [facility] [employer] [address] [place], [place] [phone] Cab Supervisor: Stas Irving MD HbA1c (Bld) [Mass fraction] 12.3 % High 4.0-6.0 [facility] Comment on above: Performed By: #### C DP, BMP, LIPR, MG, CINTHYA, GLYHGB #### [facility] [employer] [address] [place], [place] [phone] Cab Supervisor: Stas Irving MD Glucose [Mass/Vol] 306 mg/dL [place] Comment on above: The ADA and AACC rec ommend providing the estimated average glucose result to permit better patient understanding of their HBA1c result. HbA1c (Bld) [Mass fraction] 12.3 % High 4 - 6 % [place] Interpretation and review of laboratory results Abnormal [place] LIPID PANELon 06-06-2019 Cholesterol [Mass/Vol] 294 mg/dL High <200 [place] Comment on above: Cholesterol Guidelines: <200 Desirable 200-240 Borderline >240 Undesirable Cholesterol in HDL [Mass/Vol] 38 mg/dL Low >40 [place] Comment on above: HDL Guidelines: <40 Undesirable 40-59 Borderline >59 Desirable Cholesterol in LDL [Mass/Vol] 216 mg/dL High 0 - 130 mg/dL [place] Comment on above: LDL Guidelines: <100 Desirable 100-129 Near to/above Desirable 130-159 Borderline >159 Undesirable Direct (measured) LDL and calculated LDL are not interchangeable tests. Cholesterol in VLDL [Mass/Vol] NOT REPORTED High 1 - 30 mg/dL [place] Cholesterol.total/Cho lesterol in HDL [Mass ratio] 7.7 {ratio} High <5 [place] Triglyceride [Mass/Vol] 200 mg/dL High <150 [place] Comment on above: Triglyceride Guidelines: <150 Desirable 150-199 Borderline 200-499 High >499 Very high Based on AHA Guidelines for fasting triglyceride, May 2012. Lipid Profileon 06-06-2019 Cholesterol [Mass/Vol] 294 mg/dL High <200 [facility] Comment on above: Result Comment: Cholesterol Guidelines: <200 Desirable 200-240 Borderline >240 Undesirable Performed By: #### C DP, BMP, LIPR, MG, CINTHYA, GLYHGB #### [facility] [address] [place] [phone] Cab Supervisor: Stas Irving MD Cholesterol in HDL [Mass/Vol] 38 mg/dL Low >40 [facility] Comment on above: Result Comment: HDL Guidelines: <40 Undesirable 40-59 Borderline >59 Desirable Performed By: #### C DP, BMP, LIPR, MG, CINTHYA, GLYHGB #### [facility] [employer] [address] [place] [phone] Cab Supervisor: Stas Irving MD Cholesterol in LDL [Mass/Vol] 216 mg/dL High 0-130 [facility] Comment on above: Result Comment: LDL Guidelines: <100 Desirable 100-129 Near to/above Desirable 130-159 Borderline >159 Undesirable Direct (measured) LDL and calculated LDL are not interchangeable tests. Performed By: #### C DP, BMP, LIPR, MG, CINTHYA, GLYHGB #### [facility] [address] [place] [phone] Cab Supervisor: Stas Irving MD Cholesterol.total/Cho lesterol in HDL [Mass ratio] 7.7 {ratio} High <5 [facility] Comment on above: Performed By: #### C DP, BMP, LIPR, MG, CINTHYA, GLYHGB #### [employer] [address] [place] [address] [phone] Cab Supervisor: Stas Irving MD Triglyceride [Mass/Vol] 200 mg/dL High <150 [facility] Comment on above: Result Comment: Triglyceride Guidelines: <150 Desirable 150-199 Borderline 200-499 High >499 Very high Based on AHA Guidelines for fasting triglyceride, May 2012. Performed By: #### C DP, BMP, LIPR, MG, CINTHYA, GLYHGB #### [facility] [address] [place] [address] Cab Supervisor: Stas Irving MD Cholesterol in VLDL [Mass/Vol] NOT REPORTED Normal 09-20 [facility] Comment on above: Performed By: #### C DP, BMP, LIPR, MG, CINTHYA, GLYHGB #### [facility] [employer] [address] [place] [address] Cab Supervisor: Stas Irving MD MAGNESIUMon 06-06-2019 Magnesium [Mass/Vol] 2.0 mg/dL 1.6 - 2 .6 mg/dL [place] MRSA DNA Probe, Nasalon 05-22 MRSA, DNA, Nasal NEGATIVE: MRSA DNA not detected by nucleic acid amplification. NEGATIVE: MRSA DNA not detected by nucleic acid amplificati [place] Comment on above: Results should be used as an adjunct to nosocomial control efforts to identify patients needing enhanced precautions. The test is not intended to identify patients with staphylococcal infections. Results should not be used to guide or monitor treatment for MRSA infections. Specimen Description .NASAL SWAB [place] MRSA, DNA, Nasalon 9 MRSA, DNA, Nasal NEGATIVE: MRSA DNA not detected by nucleic acid amplification. [facility] Comment on above: Result Comment: Results should be used as an adjunct to nosocomial control efforts to identify patients needing enhanced precautions. The test is not intended to identify patients with staphylococcal infections. Results should not be used to guide or monitor treatment for MRSA infections. Performed By: #### S MAGDY #### [facility] [employer] [address] [place] [address] Cab Supervisor: Stas Irving MD Specimen Description .NASAL SWAB Normal [facility] Comment on above: Performed By: #### S MAGDY #### [facility] [address] [place] [address] Cab Supervisor: Stas Irving MD Magnesiumon 06-06-2019 Magnesium [Mass/Vol] 2.0 mg/dL Normal 1.6-2.6 [facility] Comment on above: Performed By: #### C DP, BMP, LIPR, MG, CINTHYA, GLYHGB #### [employer] [address] [place] [address] Cab Supervisor: Stas Irving MD Otheron 06-06-2019 Interpretation and review of laboratory results Abnormal [place] PHOSPHORUSon 06-06-2019 Phosphate [Mass/Vol] 3.2 mg/dL 2.5 - 4 .5 mg/dL [place] POC Glucose Fingerstickon Glucose [Mass/Vol] 315 mg/dL High 75 - 110 mg/dL [place] Interpretation and review of laboratory results Abnormal [place] Glucose [Mass/Vol] 310 mg/dL High 75 - 110 mg/dL [place] Interpretation and review of laboratory results Abnormal [place] Glucose [Mass/Vol] 257 mg/dL High 75 - 110 mg/dL [place] Interpretation and review of laboratory results Abnormal [place] Glucose [Mass/Vol] 265 mg/dL High 75 - 110 mg/dL [place] Interpretation and review of laboratory results Abnormal [place] Glucose [Mass/Vol] 211 mg/dL High 75 - 110 mg/dL [place] Interpretation and review of laboratory results Abnormal [place] POCT glucoseon 06-06-2019 Glucose [Mass/Vol] 211 mg/dL [place] Interpretation and review of laboratory results Normal [place] Phosphorus, Inorg.on 019 Phosphorus, Inorg. 3.2 mg/dL Normal 2.5-4.5 [facility] Comment on above: Performed By: #### C DP, BMP, LIPR, MG, CINTHYA, GLYHGB #### [employer] [address] [place], [place] [phone] Cab Supervisor: Stas Irving MD Anion Gap (Calc) POCon 06-05 Anion gap [Moles/Vol] 10 mmol/L 7 - 16 mmol/L [place] CALCIUM, IONIC (POC)on 06-05 POC Ionized Calcium 1.18 mmol/L 1.15 - 1 .33 mmol/L [place] CHLORIDE (POC)on 06-05-2019 Chloride [Moles/Vol] 99 mmol/L 98 - 10 7 mmol/L [place] CT Head WO Contraston 2018 EXAMINATION: [...] of the visualized skull or soft tissues. [place] Nav, pn Incoming Radiant Results From [employer] - 06/05/2019 10:17 PM EDT EXAMINATION: CT [...] Discussed with Dr. Son at 10:14 p.m.. [place] No acute intracrania l abnormality. 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 Pansinusitis. RECOMMENDATIONS: The findings were sent to the Radiology Results Communication Center at 10:13 pm on 06/05/2019to be communicated to a licensed caregiver. Discussed with Dr. Son at 10:14 p.m.. [place] CTA HEAD NECK W CONTRASTon 1 Nav, [facility] Incoming Radiant Results From [employer] - 06/05/2019 10:57 PM EDT EXAMINATION: CTA [...] discussed with Dr. Son at 10:50 p.m.. 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 Otherwise negative CTA of the head and neck. RECOMMENDATIONS: The findings were sent to the Radiology Results Communication Center at 10:48 pm on 06/05/2019to be communicated to a licensed caregiver. Case discussed with Dr. Son at 10:50 p.m.. [place] EXAMINATION: CTA OF THE HEAD AND [...] bilateral remote basal ganglia infarcts again noted. [place] Creatinine W/GFR Point of Ca bruna 06-05-2019 Creatinine [Mass/Vol] 0.77 mg/dL 0.51 - 1.19 mg/dL [place] GFR Non- >60 >60 mL/min [place] GFR/1.73 sq M predicted among non-blacks MDRD (S/P/Bld) [Vol rate/Area] mL/min/{1.73_m2} >60 mL/min [place] GFR/1.73 sq M predicted among non-blacks MDRD (S/P/Bld) [Vol rate/Area] [place] Comment on above: Average GFR for 60-6 9 years old: 85 mL/min/1.73sq m Chronic Kidney Disease: <60 mL/min/1.73sq m Kidney failure: <15 mL/min/1.73sq m eGFR calculated using average adult body mass. Additional eGFR calculator available at: http://www.[employer]/multiple_crcl_2012.htm Hemoglobin and hematocrit, deisy esquivel 06-05-2019 Hematocrit (Bld) [Volume fraction] 47 % 41 - 53 % [place] Hemoglobin (Bld) [Mass/Vol] 16.0 g/dL 13.5 - 17.5 g/dL [place] Lactic Acid, POCon 9 POC Lactic Acid 1.62 mmol/L High 0.56 - 1.39 mmol/L [place] Otheron 06-05-2019 Interpretation and review of laboratory results Abnormal [place] POC Glucose Fingerstickon Glucose [Mass/Vol] 315 mg/dL High 75 - 110 mg/dL [place] Interpretation and review of laboratory results Abnormal [place] POCT Glucoseon 06-05-2019 Glucose [Mass/Vol] 344 mg/dL High 74 - 100 mg/dL [place] POTASSIUM (POC)on 06-05-2019 Potassium [Moles/Vol] 3.9 mmol/L 3.5 - 4.5 mmol/L [place] SODIUM (POC)on 06-05-2019 Sodium [Moles/Vol] 136 mmol/L Low 138 - 146 mmol/L [place] STROKE PANELon 06-05-2019 % CKMB 2.4 % 0 - 3.5 % [place] Anion gap [Moles/Vol] 12 mmol/L 9 - 17 mmol/L [place] aPTT Coag (Bld) [Time] 26.4 s [place] Basophils (Bld) [#/Vol] 0.06 10*3/uL [place] Basophils/100 WBC (Bld) 1 % 0 - 2 % [place] Bun/Cre Ratio NOT REPORTED [place] Calcium [Mass/Vol] 9.7 mg/dL 8.6 - 10. 4 mg/dL [place] Chloride [Moles/Vol] 98 mmol/L 98 - 10 7 mmol/L [place] CK.MB [Mass/Vol] NORMAL ISOENZYME PATTERN [place] CK.MB [Mass/Vol] 3.3 ng/mL <10.5 [place] CO2 [Moles/Vol] 25 mmol/L 20 - 31 mmol/L [place] Creatinine [Mass/Vol] 0.83 mg/dL 0.7 - 1.2 mg/dL [place] Differential Type NOT REPORTED [place] Eosinophils (Bld) [#/Vol] 0.46 10*3/uL [place] Eosinophils/100 WBC (Bld) 6 % High 1 - 4 % [place] Erythrocyte distribution width (RBC) [Ratio] 13.7 % 11.8 - 14.4 % [place] GFR >60 >60 mL/min [place] GFR Non- >60 >60 mL/min [place] GFR/1.73 sq M predicted among non-blacks MDRD (S/P/Bld) [Vol rate/Area] NOT REPORTED [place] GFR/1.73 sq M predicted among non-blacks MDRD (S/P/Bld) [Vol rate/Area] [place] Comment on above: Average GFR for 60-6 9 years old: 85 mL/min/1.73sq m Chronic Kidney Disease: <60 mL/min/1.73sq m Kidney failure: <15 mL/min/1.73sq m eGFR calculated using average adult body mass. Additional eGFR calculator available at: http://www.[employer]/multiple_crcl_2011.htm Glucose [Mass/Vol] 353 mg/dL High 70 - 99 mg/dL [place] Hematocrit (Bld) [Volume fraction] 47.2 % 40.7 - 50.3 % [place] Hemoglobin (Bld) [Mass/Vol] 15.6 g/dL 13 - 17 g/dL [place] Immature granulocytes (Bld) [#/Vol] 0.03 10*3/uL [place] Immature granulocytes (Bld) [#/Vol] 0 % 0 [place] INR Coag (PPP) [Relative time] 1.2 {INR} [place] Comment on above: Therapeutic Range: Moderate Anticoagulant Intensity: INR = 2.0-3.0 High Anticoagulant Intensity: INR = 2.5-3.5 Interpretation and review of laboratory results Abnormal [place] Lymphocytes (Bld) [#/Vol] 2.54 10*3/uL [place] Lymphocytes/100 WBC (Bld) 32 % 24 - 43 % [place] MCH (RBC) [Entitic mass] 28.5 pg 25.2 - 33.5 pg [place] MCHC (RBC) [Mass/Vol] 33.1 g/dL 28.4 - 34.8 g/dL [place] MCV (RBC) [Entitic vol] 86.1 fL 82.6 - 102.9 fL [place] Monocytes (Bld) [#/Vol] 0.69 10*3/uL [place] Monocytes/100 WBC (Bld) 9 % 3 - 12 % [place] Myoglobin [Mass/Vol] 24 ng/mL Low 28 - 72 ng/mL [place] Platelet mean volume (Bld) [Entitic vol] 11.3 fL 8.1 - 13.5 fL [place] Platelets (Bld) [#/Vol] 201 10*3/uL [place] Platelets (Bld) [#/Vol] NOT REPORTED [place] Potassium [Moles/Vol] 4.1 mmol/L 3.7 - 5.3 mmol/L [place] PT Coag (PPP) [Time] 12.1 s High [place] RBC (Bld) [#/Vol] 5.48 10*6/uL 4.21 - 5.7 7 m/uL [place] RBC morphology finding Nom (Bld) NOT REPORTED [place] Segmented neutrophils/100 WBC (Bld) 52 % 36 - 65 % [place] Segs Absolute 4.20 [place] Sodium [Moles/Vol] 135 mmol/L 135 - 144 mmol/L [place] Total CK 138 U/L 39 - 308 U/L [place] Troponin I.cardiac [Mass/Vol] NOT REPORTED [place] Troponin T.cardiac [Mass/Vol] NOT REPORTED <0.03 ng/mL [place] Troponin, High Sensitivity 17 ng/L 0 - 22 ng/L [place] Comment on above: High Sensitivity Troponin values cannot be compared with other Troponin methodologies. Patients with high levels of Biotin oral intake (i.e >5mg/day) may have falsely decreased Troponin levels. Samples collected within 8 hours of biotin intake may require additional information for diagnosis. Urea nitrogen [Mass/Vol] 8 mg/dL 8 - 23 mg/dL [place] WBC (Bld) [#/Vol] 0.0 10*3/uL 0.0 per 10 0 WBC [place] WBC (Bld) [#/Vol] 8.0 10*3/uL [place] WBC Morphology NOT REPORTED [place] Stroke Panelon 06-05-2019 % CKMB 2.4 % Normal 0.0-3.5 [facility] Comment on above: Performed By: #### S MAGDY #### [facility] [employer] [address] [place] [phone] Cab Supervisor: Stas Irving MD Anion gap [Moles/Vol] 12 mmol/L Normal 9-17 [facility] Comment on above: Performed By: #### S MAGDY #### [facility] [employer] [address] [place] [phone] Cab Supervisor: Stas Irving MD Calcium [Mass/Vol] 9.7 mg/dL Normal 8.6-10.4 [facility] Comment on above: Performed By: #### S TOREYKE #### [facility] [employer] [address] [place] [phone] Cab Supervisor: Stas Irving MD Chloride [Moles/Vol] 98 mmol/L Normal 98-107 [facility] Comment on above: Performed By: #### S TOREYKE #### [facility] [employer] [address] [place] [address] Cab Supervisor: Stas Irving MD CK [Catalytic activity/Vol] 138 U/L Normal 39-308 [facility] Comment on above: Performed By: #### S TROKE #### [address] [address] Cab Supervisor: Stas Irving MD CK.MB [Mass/Vol] NORMAL ISOENZYME PATTERN Normal [facility] Comment on above: Performed By: #### S TROKE #### [address] [address] Cab Supervisor: Stas Irving MD CO2 [Moles/Vol] 25 mmol/L Normal 20-31 [facility] Comment on above: Performed By: #### S TROKE #### [address] [address] Cab Supervisor: Stas Irving MD Creatinine [Mass/Vol] 0.83 mg/dL Normal 0.70-1.20 [facility] Comment on above: Performed By: #### S TROKE #### [address] [address] Cab Supervisor: Stas Irving MD GFR, Amer >60 Normal >60 [facility] Comment on above: Performed By: #### S TROKE #### [address] [address] Cab Supervisor: Stas Irving MD GFR,non Amer >60 Normal >60 [facility] Comment on above: Performed By: #### S TROKE #### [address] [address] Cab Supervisor: Stas Irving MD Glucose [Mass/Vol] 353 mg/dL High 70-99 [facility] Comment on above: Performed By: #### S TROKE #### [address] [address] Cab Supervisor: Stas Irving MD Potassium [Moles/Vol] 4.1 mmol/L Normal 3.7-5.3 [facility] Comment on above: Performed By: #### S TROKE #### [address] [address] Cab Supervisor: Stas Irving MD Sodium [Moles/Vol] 135 mmol/L Normal 135-144 [facility] Comment on above: Performed By: #### S TOREYKE #### [address] [address] Cab Supervisor: Stas Irving MD Urea nitrogen [Mass/Vol] 8 mg/dL Normal 8-23 [facility] Comment on above: Performed By: #### S TOREYKE #### [address] [address] Cab Supervisor: Stas Irving MD (cont.) [facility] Comment on above: Result Comment: Aver age GFR for 60-69 years old: 85 mL/min/1.73sq m Chronic Kidney Disease: <60 mL/min/1.73sq m Kidney failure: <15 mL/min/1.73sq m eGFR calculated using average adult body mass. Additional eGFR calculator available at: http://www.[employer]stream[employer]/multiple_crcl_2012.htm Performed By: #### S MAGDY #### [address] [address] Cab Supervisor: Stas Irving MD CK-MB,Quantitative 3.3 ng/mL Normal <10.5 [facility] Comment on above: Performed By: #### S TOREYKE #### [address] [address] Cab Supervisor: Stas Irving MD Myoglobin [Mass/Vol] 24 ng/mL Low 28-72 [facility] Comment on above: Performed By: #### S TOREYKE #### [address] [address] Cab Supervisor: Stas Irving MD Troponin, High Sens 17 ng/L Normal 0-22 [facility] Comment on above: Result Comment: High Sensitivity Troponin values cannot be compared with other Troponin methodologies. Patients with high levels of Biotin oral intake (i.e >5mg/day) may have falsely decreased Troponin levels. Samples collected within 8 hours of biotin intake may require additional information for diagnosis. Performed By: #### S MAGDY #### [facility] [employer] [address] [place] [address] Cab Supervisor: Stas Irving MD aPTT Coag (Bld) [Time] 26.4 s Normal 20.5-30.5 [facility] Comment on above: Performed By: #### S MAGDY #### [place] [address] Cab Supervisor: Stas Irving MD INR Coag (PPP) [Relative time] 1.2 {INR} Normal [facility] Comment on above: Result Comment: Therapeutic Range: Moderate Anticoagulant Intensity: INR = 2.0-3.0 High Anticoagulant Intensity: INR = 2.5-3.5 Performed By: #### S MAGDY #### [place] [address] Cab Supervisor: Stas Irving MD PT Coag (PPP) [Time] 12.1 s High 9.0-12.0 [facility] Comment on above: Performed By: #### S MAGDY #### [facility] [address] [place] [address] Cab Supervisor: Stas Irving MD Abs. Basophil 0.06 k/uL Normal 0.00-0.20 [facility] Comment on above: Performed By: #### S MAGDY #### [facility] [employer] [address] [place] [address] Cab Supervisor: Stas Irving MD Abs.Imm.Granulocyte 0.03 k/uL Normal 0.00-0.30 [facility] Comment on above: Performed By: #### S TOREYKE #### [address] [address] Cab Supervisor: Stas Irving MD Abs.Neutrophil (Seg) 4.20 k/uL Normal 1.50-8.10 [facility] Comment on above: Performed By: #### S TOREYKE #### [address] [address] Cab Supervisor: Stas Irving MD Basophils/100 WBC (Bld) 1 % Normal 0-2 [facility] Comment on above: Performed By: #### S TOREYKE #### [address] [address] Cab Supervisor: Stas Irving MD Eosinophils (Bld) [#/Vol] 0.46 10*3/uL High 0.00-0.44 [facility] Comment on above: Performed By: #### S TOREYKE #### [address] [address] Cab Supervisor: Stas Irving MD Eosinophils/100 WBC (Bld) 6 % High 1-4 [facility] Comment on above: Performed By: #### S TOREYKE #### [address] [address] Cab Supervisor: Stas Irving MD Erythrocyte distribution width (RBC) [Ratio] 13.7 % Normal 11.8-14.4 [facility] Comment on above: Performed By: #### S TOREYKE #### [address] [address] Cab Supervisor: Stas Irving MD Hematocrit (Bld) [Volume fraction] 47.2 % Normal 40.7-50.3 [facility] Comment on above: Performed By: #### S TOREYKE #### [address] [address] Cab Supervisor: Stas Irving MD Hemoglobin (Bld) [Mass/Vol] 15.6 g/dL Normal 13.0-17.0 [facility] Comment on above: Performed By: #### S TOREYKE #### [address] [address] Cab Supervisor: Stas Irving MD Immature granulocytes (Bld) [#/Vol] 0 % Normal 0 [facility] Comment on above: Performed By: #### S TOREYKE #### [address] [address] Cab Supervisor: Stas Irving MD Lymphocytes (Bld) [#/Vol] 2.54 10*3/uL Normal 1.10-3.70 [facility] Comment on above: Performed By: #### S MAGDY #### [address] [address] Cab Supervisor: Stas Irving MD Lymphocytes/100 WBC (Bld) 32 % Normal 24-43 [facility] Comment on above: Performed By: #### S MAGDY #### [address] [address] Cab Supervisor: Stas Irving MD MCH (RBC) [Entitic mass] 28.5 pg Normal 25.2-33.5 [facility] Comment on above: Performed By: #### S TOREYKE #### [address] [address] Cab Supervisor: Stas Irving MD MCHC (RBC) [Mass/Vol] 33.1 g/dL Normal 28.4-34.8 [facility] Comment on above: Performed By: #### S TOREYKE #### [address] [address] Cab Supervisor: Stas Irving MD MCV (RBC) [Entitic vol] 86.1 fL Normal 82.6-102.9 [facility] Comment on above: Performed By: #### S MAGDY #### [address] [address] Cab Supervisor: Stas Irving MD Monocytes (Bld) [#/Vol] 0.69 10*3/uL Normal 0.10-1.20 [facility] Comment on above: Performed By: #### S MAGDY #### [address] [address] Cab Supervisor: Stas Irving MD Monocytes/100 WBC (Bld) 9 % Normal 3-12 [facility] Comment on above: Performed By: #### S MAGDY #### [address] [address] Cab Supervisor: Stas Irving MD Neutrophil (Seg) 52 % Normal 36-65 [facility] Comment on above: Performed By: #### S MAGDY #### [address] [address] Cab Supervisor: Stas Irving MD NRBC Automated 0.0 per 100 WBC Normal 0.0 [facility] Comment on above: Performed By: #### S MAGDY #### [address] [address] Cab Supervisor: Stas Irving MD Platelet mean volume (Bld) [Entitic vol] 11.3 fL Normal 8.1-13.5 [facility] Comment on above: Performed By: #### S MAGDY #### [address] [address] Cab Supervisor: Stas Irving MD Platelets (Bld) [#/Vol] 201 10*3/uL Normal 138-453 [facility] Comment on above: Performed By: #### S MAGDY #### [address] [place] [address] Cab Supervisor: Stas Irving MD RBC (Bld) [#/Vol] 5.48 10*6/uL Normal 4.21-5.77 [facility] Comment on above: Performed By: #### S TOREYKE #### [address] [address] Cab Supervisor: Stas Irving MD WBC (Bld) [#/Vol] 8.0 10*3/uL Normal 3.5-11.3 [facility] Comment on above: Performed By: #### S MAGDY #### [address] [address] Cab Supervisor: Stas Irving MD Auto Diff Performed NOT REPORTED Normal [facility] Comment on above: Performed By: #### S MAGDY #### [address] [address] Cab Supervisor: Stas Irving MD BUN/CRE Ratio NOT REPORTED Normal 9-20 [facility] Comment on above: Performed By: #### S MAGDY #### [address] [address] Cab Supervisor: Stas Irving MD Platelets (Bld) [#/Vol] NOT REPORTED Normal [facility] Comment on above: Performed By: #### S TOREYKE #### [address] [address] Cab Supervisor: Stas Irving MD RBC morphology finding Nom (Bld) NOT REPORTED Normal [facility] Comment on above: Performed By: #### S TOREYKE #### [address] [address] Cab Supervisor: Stas Irving MD Staging: NOT REPORTED Normal [facility] Comment on above: Performed By: #### S MAGDY #### [address] [place] [address] Cab Supervisor: Stas Irving MD Troponin I.cardiac [Mass/Vol] NOT REPORTED Normal [facility] Comment on above: Performed By: #### S TROKE #### [facility] [address] [place] [address] Cab Supervisor: Stas Irving MD Troponin T.cardiac [Mass/Vol] NOT REPORTED Normal <0.03 [facility] Comment on above: Performed By: #### S TROKE #### [facility] [address] [place] [address] Cab Supervisor: Stas Irving MD WBC Morphology NOT REPORTED Normal [facility] Comment on above: Performed By: #### S TROKE #### [facility] [employer] [address] [place] [address] Cab Supervisor: Stas Irving MD Venous Blood Gas, POCon 05-22 Wayne Test NOT REPORTED [place] aPTT Coag (Bld) [Time] NOT REPORTED [place] FIO2 NOT REPORTED [place] HCO3, Venous 27.3 mmol/L 22 - 29 mmol/L [place] Mode NOT REPORTED [place] Negative Base Excess, Kody NOT REPORTED [place] O2 Device/Flow/% NOT REPORTED [place] Oxygen saturation in Blood 67 % 60 - 85 % [place] pCO2, Kody 41.3 [place] pH, Kody 7.428 [place] pO2, Kody 33.8 [place] POC pCO2 Temp NOT REPORTED mm Hg [place] POC pH Temp NOT REPORTED [place] POC pO2 Temp NOT REPORTED mm Hg [place] Positive Base Excess, Kody 3 [place] Sample Site NOT REPORTED [place] Total CO2, Venous 29 mmol/L 23 - 30 mmol/L [place] XR CHEST PORTABLEon 06-05-20 19 XR CHEST PORTABLE EXAMINATION: ONE XRAY VIEW [...] C Goyal MD 06/05/19 Final result Normal [facility] EXAMINATION: ONE XRA Y VIEW OF THE CHEST 06/05/2019 9:01 pm COMPARISON: None. HISTORY: ORDERING SYSTEM PROVIDED HISTORY: CVA TECHNOLOGIST PROVIDED HISTORY: CVA Reason for Exam: stroke upright port FINDINGS: The lungs are without acute focal process. There is no effusion or pneumothorax. The cardiomediastinal silhouette is without acute process. The osseous structures are without acute process. [place] Nav, [employer] Incoming Radiant Results From [employer] - 06/05/2019 9:43 PM EDT EXAMINATION: ONE [...] without acute process. IMPRESSION: No acute process. [place] No acute process. [place] Vital Signs Date Time Vital Sign Value Performing Clinician Facility 02-02-2023 10:20-0400 Blood Pressure Location Milvia Palomo [facility] 02-02-2023 10:20-0400 Diastolic blood pressure 82 mm[Hg] Milvia Palomo [facility] 02-02-2023 10:20-0400 Heart rate 72 /min Milvia Palomo [facility] 02-02-2023 10:20-0400 Systolic blood pressure 132 mm[Hg] Milvia Lue [facility] 11-03-2022 08:12-0400 Blood Pressure Location Milvia Lue [facility] 11-03-2022 08:12-0400 Diastolic blood pressure 81 mm[Hg] Milvia Lue [facility] 11-03-2022 08:12-0400 Heart rate 77 /min Milvia Lue [facility] 11-03-2022 08:12-0400 Systolic blood pressure 131 mm[Hg] Milvia Lue [facility] 08-04-2022 08:56-0500 Blood Pressure Location Milvia Lue [facility] 08-04-2022 08:56-0500 Diastolic blood pressure 90 mm[Hg] Milvia Lue [facility] 08-04-2022 08:56-0500 Heart rate 78 /min Milvia Lue [facility] 08-04-2022 08:56-0500 Respiratory rate 16 /min Milvia Lue [facility] 08-04-2022 08:56-0500 Systolic blood pressure 140 mm[Hg] Milvia Lue [facility] 07-06-2022 17:09-0500 Body temperature 97.88 [degF] Milvia Lue [facility] 07-06-2022 17:09-0500 Diastolic blood pressure 88 mm[Hg] Milvia Lue [facility] 07-06-2022 17:09-0500 Heart rate 80 /min Milvia Lue [facility] 07-06-2022 17:09-0500 Mean blood pressure 114 mm[Hg] Milvia Lue [facility] 07-06-2022 17:09-0500 Respiratory rate 16 /min Milvia Lue [facility] 07-06-2022 17:09-0500 SaO2% (BldA) [Mass fraction] 98 % Milvia Lue [facility] 07-06-2022 17:09-0500 Systolic blood pressure 165 mm[Hg] Milvia Lue [facility] 07-06-2022 16:24-0500 Blood Pressure Location Milvia Lue [facility] 07-06-2022 16:24-0500 Body temperature 97.88 [degF] Milvia Lue [facility] 07-06-2022 16:24-0500 Diastolic blood pressure 98 mm[Hg] Milvia Lue [facility] 07-06-2022 16:24-0500 Heart rate 76 /min Milvia Lue [facility] 07-06-2022 16:24-0500 Mean blood pressure 122 mm[Hg] Milvia Lue [facility] 07-06-2022 16:24-0500 SaO2% (BldA) [Mass fraction] 96 % Milvia Lue [facility] 07-06-2022 16:24-0500 Systolic blood pressure 169 mm[Hg] Milvia Lue [facility] 07-06-2022 16:16-0500 Blood Pressure Location Milvia Lue [facility] 07-06-2022 16:16-0500 Body temperature 97.52 [degF] Milvia Lue [facility] 07-06-2022 16:16-0500 Diastolic blood pressure 105 mm[Hg] Milvia Lue [facility] 07-06-2022 16:16-0500 Heart rate 82 /min Milvia Lue [facility] 07-06-2022 16:16-0500 Respiratory rate 16 /min Milvia Lue [facility] 07-06-2022 16:16-0500 SaO2% (BldA) [Mass fraction] 98 % Milvia Lue [facility] 07-06-2022 16:16-0500 Systolic blood pressure 159 mm[Hg] Milvia Lue [facility] 07-06-2022 16:03-0500 Blood Pressure Location Milvia Lue [facility] 07-06-2022 16:03-0500 Respiratory rate 12 /min Milvia Lue [facility] 07-06-2022 15:58-0500 Respiratory rate 17 /min Milvia Lue [facility] 07-06-2022 15:48-0500 Body temperature 97.7 [degF] Milvia Lue [facility] 07-06-2022 10:40-0500 Mean blood pressure 106 mm[Hg] Milvia Lue [facility] 07-06-2022 10:40-0500 Heart rate 80 /min Milvia Lue [facility] 07-06-2022 10:39-0500 Body temperature 98.78 [degF] Milvia Lue [facility] 07-06-2022 10:39-0500 Mean blood pressure 113 mm[Hg] Milvia Lue [facility] 07-06-2022 10:39-0500 Respiratory rate 20 /min Milvia Lue [facility] 06-30-2022 17:30-0500 Blood Pressure Location Milvia Lue [facility] 06-30-2022 17:30-0500 BP/Pulse Patient Position Milvia Lue [facility] 06-30-2022 17:30-0500 Diastolic blood pressure 84 mm[Hg] Milvia Lue [facility] 06-30-2022 17:30-0500 Systolic blood pressure 175 mm[Hg] Milvia Lue [facility] 06-30-2022 17:22-0500 Blood Pressure Location Milvia Lue [facility] 06-30-2022 17:22-0500 Diastolic blood pressure 96 mm[Hg] Milvia Lue [facility] 06-30-2022 17:22-0500 Heart rate 67 /min Milvia Lue [facility] 06-30-2022 17:22-0500 Mean blood pressure 125 mm[Hg] Milvia Lue [facility] 06-30-2022 17:22-0500 Systolic blood pressure 185 mm[Hg] Milvia Lue [facility] 06-30-2022 16:53-0500 Blood Pressure Location Milvia Lue [facility] 06-30-2022 16:53-0500 Body temperature 98.96 [degF] Milvia Lue [facility] 06-30-2022 16:53-0500 BP/Pulse Patient Position Milvia Lue [facility] 06-30-2022 16:53-0500 Diastolic blood pressure 96 mm[Hg] Milvia Lue [facility] 06-30-2022 16:53-0500 Heart rate 76 /min Milvia Lue [facility] 06-30-2022 16:53-0500 Mean blood pressure 124 mm[Hg] Milvia Lue [facility] 06-30-2022 16:53-0500 Respiratory rate 18 /min Milvia Lue [facility] 06-30-2022 16:53-0500 Systolic blood pressure 180 mm[Hg] Milvia Lue [facility] 06-30-2022 16:52-0500 BP/Pulse Patient Position Milvia Lue [facility] 06-30-2022 16:52-0500 Heart rate 79 /min Milvia Lue [facility] 06-30-2022 16:52-0500 Mean blood pressure 124 mm[Hg] Milvia Lue [facility] 06-30-2022 16:52-0500 SaO2% (BldA) [Mass fraction] 98 % Milvia Lue [facility] 06-25-2022 15:25-0400 Blood Pressure Location [facility] 06-25-2022 15:25-0400 Diastolic blood pressure 86 mm[Hg] [facility] 06-25-2022 15:25-0400 Heart rate 72 /min [facility] 06-25-2022 15:25-0400 Respiratory rate 16 /min Curtis NILL [facility] [place] 06-25-2022 15:25-0400 Systolic blood pressure 142 mm[Hg] Curtis NILL [facility] 06-02-2022 09:21-0400 Blood Pressure Location Milvia Lue [facility] 06-02-2022 09:21-0400 Diastolic blood pressure 86 mm[Hg] Milvia Lue [facility] 06-02-2022 09:21-0400 Heart rate 72 /min Milvia Lue [facility] 06-02-2022 09:21-0400 Systolic blood pressure 140 mm[Hg] Milvia Lue [facility] 05-26-2022 07:25-0400 Body height 182.88 cm MD Adilson Salazar Work Phone: [facility] 05-26-2022 07:25-0400 Body weight 98.88 kg MD Adilson Salazar Work Phone: [facility] 04-21-2022 11:39-0400 Respiratory rate 16 /min Milvia Lue [facility] 06-09-2019 11:39-0400 Body Temperature 98.29 [degF] [place] 06-09-2019 11:39-0400 BP Diastolic 79 mm[Hg] [place] 06-09-2019 11:39-0400 BP Systolic 134 mm[Hg] [place] 06-09-2019 11:39-0400 Pulse (Heart Rate) 84 /min [place] 06-09-2019 11:39-0400 Pulse Oximetry 95 % [place] 06-09-2019 11:39-0400 Respiratory Rate 20 /min [place] 06-05-2019 20:48-0400 BMI (Body Mass Index) 29.84 kg/m2 [place] 06-05-2019 20:48-0400 Body weight 99.79 kg [place] 06-05-2019 20:48-0400 Height 182.9 cm [place] Encounters Encounter Date Encounter Type Care Provider Facility Start: 02-14-2024 End: 02-14-2024 ambulatory [facility] Start: 02-06-2024 ambulatory [facility] Start: 12-29-2023 End: 12-29-2023 ambulatory ADILSON SALAZAR Not Available Start: 10-31-2023 End: 10-31-2023 ambulatory SILVANO MARTINEZ [facility] Start: 09-29-2023 Clinisync Result Encounter Adilson Salazar MD Work Phone: [facility] Unsolicited Start: 09-29-2023 Clinisync Result Encounter Adilson Salazar MD Work Phone: [facility] Unsolicited Start: 09-29-2023 Orders Only Adilson Bell Work Phone: [facility] Comment on above: Type 2 diabetes thomas itus with hyperglycemia, with long-term current use of insulin ([facility] Start: 09-26-2023 End: 09-26-2023 ambulatory ADILSON CHENROSE Not Available Start: 09-20-2023 End: 09-20-2023 ambulatory [facility] Start: 08-09-2023 ambulatory [facility] Start: 08-05-2023 End: 08-05-2023 ambulatory ADILSON CHENROSE Not Available Start: 08-02-2023 End: 08-03-2023 ambulatory [facility] Start: 08-01-2023 End: 08-01-2023 ambulatory [facility] Start: 07-29-2023 End: 07-29-2023 ambulatory [facility] Start: 07-28-2023 End: 07-28-2023 [facility] Start: 07-27-2023 End: 07-27-2023 ambulatory [facility] Start: 07-26-2023 End: 07-26-2023 ambulatory [facility] Start: 07-25-2023 End: 07-25-2023 ambulatory [facility] Start: 07-22-2023 End: 07-22-2023 [facility] Start: 07-21-2023 End: 07-21-[facility]: 07-21-2023 End: 07-21-2023 ambulatory [facility] Start: 07-20-2023 End: 07-20-2023 ambulatory [facility] Start: 07-18-2023 End: 07-18-2023 ambulatory [facility] Start: 07-13-2023 End: 07-13-2023 ambulatory [facility] Start: 07-12-2023 End: 07-12-2023 ambulatory [facility] Start: 07-11-2023 End: 07-11-2023 ambulatory [facility] Start: 07-10-2023 End: 07-10-2023 ambulatory [facility] Start: 07-08-2023 End: 07-08-2023 ambulatory [facility] Start: 07-07-2023 End: 07-07-2023 ambulatory SILVANO MARTINEZ [facility] Start: 07-06-2023 End: 07-06-2023 ambulatory [facility] Start: 07-05-2023 End: 07-05-2023 ambulatory [facility] Start: 07-04-2023 End: 07-04-2023 ambulatory [facility] Start: 06-30-2023 End: 06-30-2023 ambulatory [facility] Start: 06-29-2023 End: 06-29-2023 ambulatory [facility] Start: 06-28-2023 End: 06-28-2023 ambulatory [facility] Start: 06-27-2023 End: 06-27-2023 ambulatory [facility] Start: 06-24-2023 End: 06-24-2023 [facility] Start: 06-23-2023 End: 06-23-2023 ambulatory [facility] Start: 06-22-2023 End: 06-22-2023 ambulatory [facility] Start: 06-21-2023 End: 06-21-2023 ambulatory [facility] Start: 06-17-2023 End: 06-17-2023 ambulatory [facility] Start: 06-07-2023 End: 06-07-2023 ambulatory [facility] Start: 06-02-2023 End: 06-02-2023 ambulatory [facility] Start: 06-01-2023 End: 06-01-2023 ambulatory SILVANO MARTINEZ [facility] Start: 05-30-2023 End: 05-30-2023 ambulatory [facility] Start: 05-30-2023 End: 05-30-2023 ambulatory [facility] Start: 05-25-2023 End: 05-25-2023 ambulatory [facility] Start: 04-12-2023 ambulatory [facility] Start: 04-12-2023 End: 04-12-2023 ambulatory [facility] Start: 03-17-2023 ambulatory [facility] Start: 03-17-2023 Encounter for preprocedural cardiovascular examination [facility] Start: 03-02-2023 ambulatory [facility] Start: 02-23-2023 End: 02-23-2023 ambulatory [facility] Start: 02-17-2023 End: 02-17-2023 ambulatory [facility] Start: 02-02-2023 End: 02-03-2023 ambulatory Milvia Palomo Facility:[facility] Start: 02-02-2023 End: 02-02-2023 Patient encounter procedure Milvia Palomo [facility] Start: 11-17-2022 End: 11-17-[address] ADILSON SALAZAR Facility:[facility] Start: 11-03-2022 End: 11-04-2022 ambulatory Milvia Palomo Facility:[facility] Start: 11-03-2022 End: 11-03-2022 Patient encounter procedure Milvia Palomo [facility] Start: 10-25-2022 End: 10-26-2022 ambulatory MILVIA Powers DEWEY Facility: Start: 10-12-2022 ambulatory Daniel Stricklandkrystin ty:[facility] Start: 10-06-2022 End: 10-07-2022 ambulatory Milvia M. Dewey Facility:[facility] Start: 10-06-2022 End: 10-06-2022 Patient encounter procedure Milvia Palomo [facility] Start: 09-22-2022 End: 09-23-2022 ambulatory Adilson Salazar Facility:[facility] Start: 09-20-2022 End: 09-20-2022 ambulatory MD Adilson Salazar Work Phone: [facility] Work Phone: Start: 09-20-2022 End: 09-20-2022 Patient encounter procedure MD Adilson Salazar Work Phone: [facility] Work Phone: Start: 08-06-2022 End: 08-07-[address] CURTIS GRACIA . Facility: Start: 08-04-2022 End: 08-05-2022 ambulatory Milvia FordAbran Palomo Facility:[facility] Start: 08-04-2022 End: 08-04-2022 Patient encounter procedure Milvia PowersAbran Dewey [facility] Start: 08-03-2022 ambulatory Curtis GRACIA Facility :[facility] Start: 07-21-2022 Encounter for preprocedural laboratory examination DR CURTIS Osullivan [facility] Start: 07-21-2022 End: 07-22-[address] CURTIS Osullivan Facility: Start: 07-17-2022 End: 07-18-[address] CURTIS Osullivan Facility:[facility] Start: 07-17-2022 End: 07-18-2022 Encounter for preprocedural laboratory examination DR CURTIS Osullivan Facility:[facility] Start: 07-06-2022 End: 07-06-2022 ambulatory Milvia Palomo Facility:[facility] Start: 07-06-2022 End: 07-06-2022 Admission to same day surgery center Milvia Palomo [facility] Start: 06-30-2022 End: 07-01-2022 ambulatory Milvia Palomo Facility:[facility] Start: 06-30-2022 End: 06-30-2022 Patient encounter procedure Milvia Palomo [facility] Start: 06-29-2022 End: 09-28-2022 ambulatory Milvia Palomo Facility:[facility] Start: 06-25-2022 End: 06-26-2022 ambulatory Curtis GRACIA Facility: [place] Start: 06-25-2022 End: 06-25-2022 Patient encounter procedure Curtis GRACIA [facility] Start: 06-15-2022 End: 06-16-[address] ADILSON SALAZAR Facility: Start: 06-07-2022 End: 06-07-[address] ADILSON SALAZAR Facility: Start: 06-04-2022 ambulatory Daniel BAEZA Facility : [facility] Start: 06-03-2022 End: 09-27-2022 Recurring Milvia Palomo [facility] Start: 06-02-2022 End: 06-03-2022 ambulatory Milvia Palomo Facility:[facility] Start: 06-02-2022 End: 06-30-2022 Pre-admission assessment Milvia Palomo [facility] Start: 06-02-2022 End: 06-02-2022 Patient encounter procedure Milvia Palomo [facility] Start: 05-26-2022 End: 05-26-2022 ambulatory MD Adilson Salazar Work Phone: [facility] Work Phone: Start: 05-26-2022 End: 05-26-2022 Patient encounter procedure MD Adilson Salazar Work Phone: [facility] [place] Start: 04-21-2022 End: 04-22-2022 ambulatory Milvia Palomo Facility:[facility] Start: 04-21-2022 End: 04-21-2022 Patient encounter procedure Milvia Palomo [facility] Start: 01-26-2022 End: 01-27-[address] ADILSON SALAZAR Facility: Start: 06-05-2019 End: 06-09-2019 Evaluation and management of inpatient [facility]SCAR HARP [facility] Start: 06-05-2019 End: 06-09-2019 Evaluation and management of inpatient Anselmo Garza Work Phone: [address] Neuro Comment on above: Cerebrovascular acci dent (CVA), unspecified mechanism (HCC) (Primary Dx) Procedures Date Procedure Procedure Detail Performing Clinician Start: 09-29-2023 MLR HEMOGLOBIN A1C Adilson Salazar MD Work Phone: Start: 09-20-2022 Positron emission tomography MD Adilson Salazar Work Phone: Start: 07-21-2022 Colonoscopy Adilson munoz MD Work Phone: Start: 07-06-2022 Biopsy of prostate Salud Palomo Start: 01-26-[address] ADILSON PEARSON Comment on above: Performed By: #### P TT, PT #### [facility] [address] [place] [address] Dr. Marcell Luque Start: 09-08-2020 Transrectal biopsy o f prostate using ultrasound guidance Milvia Palomo Start: 06-09-2019 DISCHARGE PATIENT OSCAR HARP Start: 06-09-2019 Glucose blood reagent strip OSCAR HARP Start: 06-09-2019 Assay of homocysteine P JACQUIE HARP Start: 06-09-2019 Clotting factor viii ahg 1 stage OSCAR HARP Start: 06-09-2019 Clotting inhibitors protein c activity OSCAR HARP Start: 06-09-2019 Clotting inhibitors protein s free OSCAR HARP Start: 06-09-2019 Flow cytometry cell surf marker techl only 1st OSCAR HARP Start: 06-09-2019 Deepak viper venom time diluted OSCAR HARP Start: 06-09-2019 Glucose blood reagent strip Omer S Shadjose alberto Work Phone: Start: 06-09-2019 FACTOR 5 LEIDEN [...] HARP Start: 06-09-2019 Assay of homocysteine L talya Bryn Morales Work Phone: Start: 06-09-2019 Basic [...] OSCAR HARP Start: 06-08-2019 DAILY WEIGHTS OSCAR GARCIA Y Start: 06-08-2019 INTAKE AND OUTPUT OSCAR HARP Start: 06-08-2019 Gluc bld gluc mntr d ev cleared fda spec home use OSCAR HARP Start: 06-08-2019 Assay of magnesium Namita n Deven Work Phone: Start: 06-08-2019 Assay of phosphorus inorganic Eugene Carvalho Work Phone: Start: 06-08-2019 Basic metabolic pane l calcium total Eugene Carvalho Work Phone: Start: 06-08-2019 Blood count complete auto&auto difrntl wbc Eugene Carvalho Work Phone: Start: 06-07-2019 Glucose blood reagent [...] HARP Start: 06-07-2019 INTAKE AND OUTPUT OSCAR HARP Start: 06-07-2019 NEURO/VASCULAR CHECKS P AUL LOYD Start: 06-07-2019 NOTIFY PHYSICIAN (SPECIFY) OSCAR HARP Start: 06-07-2019 TELEMETRY MONITORING ROSIO HARP Start: 06-07-2019 UP WITH ASSISTANCE OSCRA HARP Start: 06-07-2019 VITAL SIGNS OSCAR HARP Start: 06-07-2019 WOUND CARE OSCAR HARP Start: 06-07-2019 BAKERY WORKER REPORT OSCAR RITTER SUSHILA Start: 06-07-2019 Glucose blood reagent strip Oscar Harp Work Phone: Start: 06-07-2019 BAKERY WORKER REPORT Hpf Sca nning Start: 06-07-2019 VERIFY [...] use OSCAR HARP Start: 06-07-2019 NURSING COMMUNICATION P JACQUIE HARP Start: 06-07-2019 Mri brain brain stem w/o contrast material Duke Delgado Work Phone: Start: 06-07-2019 HOME BIPAP OR CPAP OSCAR HARP Start: 06-07-2019 INCENTIVE SPIROMETRY RT OSCAR HARP Start: 06-07-2019 Glucose blood reagent strip OSCAR HARP Start: 06-07-2019 Glucose blood reagent strip Oscar Harp Work Phone: Start: 06-07-2019 Assay of magnesium OCSAR HARP Start: 06-07-2019 Assay of phosphorus inorganic [...] OSCAR HARP Start: 06-06-2019 TRANSFER PATIENT OSCAR WILLIS Start: 06-06-2019 Ct head/brain w/o co ntrast material OSCAR HARP Start: 06-06-2019 MISCELLANEOUS NURSIN G CARE ORDER (SPECIFY) OSCAR HARP Start: 06-06-2019 Glucose blood reagent strip OSCAR HARP Start: 06-06-2019 ELEVATE HEELS OFF OF BED OSCAR HARP Start: 06-06-2019 HEAD OF BED 60 DEGRE ES OR LESS OSCAR HARP Start: 06-06-2019 NURSING COMMUNICATION P JACQUIE HARP Start: 06-06-2019 TURN PATIENT OSCAR HARP Start: 06-06-2019 Ct head/brain w/o co ntrast material Vipin Bryn Morales Work Phone: Start: 06-06-2019 Gluc bld gluc mntr d ev cleared fda spec home use OSCAR HARP Start: 06-06-2019 Glucose blood reagent strip Oscar Harp Work Phone: Start: 06-06-2019 LAB SCANNED REPORT OSCAR HARP Start: 06-06-2019 Glucose blood reagent strip OSCAR HARP Start: 06-06-2019 LAB SCANNED REPORT Hpf Scanning Start: 06-06-2019 Glucose blood reagent strip Oscar Harp Work Phone: Start: 06-06-2019 Echo transesophag r- t 2d w/prb img acquisj i&r OSCAR HARP Start: 06-06-2019 IP CONSULT TO CARDIOLOGY OSCAR HARP Start: 06-06-2019 Glucose blood reagent strip OSCAR HARP Start: 06-06-2019 Assay of magnesium OSCAR HARP Start: 06-06-2019 Assay of phosphorus inorganic OSCAR HARP Start: 06-06-2019 Basic metabolic pane l calcium total OSCAR HARP Start: 06-06-2019 Blood count complete auto&auto difrntl wbc OSCAR HARP Start: 06-06-2019 Hemoglobin glycosylated a1c OSCAR HARP Start: 06-06-2019 Lipid panel OSCAR HARP Start: 06-06-2019 Gluc bld gluc mntr d ev cleared fda spec home use OSCAR HARP Start: 06-06-2019 INCENTIVE SPIROMETRY RT OSCAR HARP Start: 06-06-2019 End: 06-06-2019 Glucose blood reagent strip Oscar Loyd Work Phone: Start: 06-06-2019 Assay of magnesium [...] Work Phone: Start: 06-06-2019 Lipid panel Vipin Brenden gipson Morales Work Phone: Start: 06-06-2019 Gluc bld [...] AL VTE PROPHYLAXIS OSCAR HARP Start: 06-06-2019 RN RESEARCH EVAL AND TREAT OSCAR HARP Start: 06-06-2019 ELEVATE HOB OSCAR HARP Start: 06-06-2019 NEURO/VASCULAR CHECKS P AUL LOYD Start: 06-06-2019 NO ANTICOAGULANTS OSCAR HARP Start: 06-06-2019 NOTIFY PHYSICIAN (SPECIFY) OSCAR HARP Start: 06-06-2019 NURSING COMMUNICATION P JACQUIE HARP Start: 06-06-2019 TELEMETRY MONITORING ROSIO HARP [...] aureus methi cillin resist amp probe tq Vipin Petersen Work Phone: Start: 06-06-2019 Gluc bld gluc mntr d ev cleared fda spec home use Mason Kruse Work Phone: Start: 06-06-2019 Glucose blood reagent [...] OSCAR HARP Start: 06-05-2019 FALL PRECAUTIONS OSCAR Mosley MIGUELTayo Start: 06-05-2019 INSERT PERIPHERAL IV PA ALLISON HARP Start: 06-05-2019 IP CONSULT TO PHARMACY OSCAR HARP Start: 06-05-2019 NEURO/VASCULAR CHECKS P AUL LOYD Start: 06-05-2019 NO ANTICOAGULANTS OSCAR HARP Start: 06-05-2019 NOTIFY PHYSICIAN (SPECIFY) OSCAR HARP Start: 06-05-2019 NURSING COMMUNICATION Ciera HARP Start: 06-05-2019 PULSE OXIMETRY OSCAR QUINONEZ Start: 06-05-2019 TELEMETRY MONITORING ROSIO HARP Start: 06-05-2019 VITAL SIGNS OSCAR HARP Start: 06-05-2019 VITAL SIGNS - NOTIFY MD OSCAR HARP Start: 06-05-2019 Lipid panel OSCAR HARP Start: 06-05-2019 ANION GAP (CALC) POC ROSIO HARP Start: 06-05-2019 Blood count hemoglobin OSCAR HARP Start: 06-05-2019 Calcium ionized OSCAR CONTI Start: 06-05-2019 Chloride other source P JACQUIE [...] Ct head/brain w/o co ntrast material Mason Aixa Work Phone: Start: 06-05-2019 Radiologic exam ches t single view Mason Kruse Work Phone: Start: 06-05-2019 Ecg routine ecg w/le ast 12 lds i&r only Mason Kruse Work Phone: Start: 06-05-2019 EKG REPORT Hpf Scanni ng Start: 06-05-2019 STROKE PANEL Mason christian Work Phone: Start: 06-05-2019 ANION GAP (CALC) POC Wi cecil Garza Work Phone: Start: 06-05-2019 Blood count [...] Work Phone: Start: 06-05-2019 Potassium [Moles/Vol] W illiaford Garza Work Phone: Start: 06-05-2019 Sodium [Moles/Vol] Will adriana Kayla Work Phone: Start: 06-05-2019 VENOUS BLOOD GAS, PO INT OF CARE Anselmo Garza Work Phone: Start: 06-05-2019 Glucose blood reagent strip Anselmo Garza Work Phone: Start: 08-22-2011 Colonoscopy Curtis NI LL Arthroplasty of knee Milvia Bess ue Arthroplasty of knee Curtis NILL Arthroscopy of shoulder Jamie aebess NILL Excision of lumbar intervertebral disc Curtis GRACIA Comment on above: L4-5 Extraction of cataract Milvia Palomo Insertion of cathete r into spinal canal for infusion of therapeutic substance Curtis GRACIA Procedure on back Milvia Palomo Plan of Treatment Date Care Activity Detail Author Start: 07-21-2032 Screening for malignant neoplasm of colon [facility] Start: 06-17-2024 Urine screening for protein Diabetes: Urine Protein Screening [facility] Start: 12-29-2023 End: 12-29-2023 Patient encounter procedure 12/29/2023 11:15 AM EDT Office Visit [facility] [address] [place] [id number] Adilson Salazar MD [address] [place] [id number] [facility] Start: 09-17-2023 Hemoglobin A1c measurement Diabetes: Hemoglobin A1C [facility] Start: 04-22-2023 Influenza vaccination Influenza Vaccine (#1) [facility] Start: 05-26-2022 MR Prostate WO and W contrast IV [facility] Start: 05-26-2022 MR prostate wo/w con MR prostate wo/w con [facility] Start: 06-08-2020 Creatinine monitoring Creatinine monitoring [place], [place] Start: 06-08-2020 Potassium monitoring Potassium monitoring [place], [place] Start: 06-06-2020 Lipid screen Lipid screen [place] Start: 09-06-2019 A1C test (Diabetic or Prediabetic) A1C test (Diabetic or Prediabetic) [place] Start: 06-05-2019 Annual Wellness Visit (AWV) Annual Wellness Visit (AWV) [place] Start: 04-22-2019 Influenza vaccination Flu vaccine (#1) [place] Start: 03-20-2014 Pneumococcal Vaccine: 65+ Years (2 - PCV) Pneumococcal Vaccine: 65+ Years (2 - PCV) [facility] Start: 11-08-2005 Colon cancer screen colonoscopy Colon cancer screen colonoscopy [place], [place] Start: 11-08-2005 Shingles Vaccine (1 of 2) Shingles Vaccine (1 of 2) [place], [place] Start: 11-08-1974 DTaP/Tdap/Td vaccine (1 - Tdap) DTaP/Tdap/Td vaccine (1 - Tdap) [place] Start: 11-08-1973 Diabetic microalbuminuria test Diabetic microalbuminuria test [place] Start: 11-08-1970 HIV screen HIV screen [place] Start: 11-08-1965 [object Object] Diabetic foot exam [place] Start: 11-08-1965 Diabetic retinal exam Diabetic retinal exam [place], [place] Start: 11-08-1965 Glaucoma screening Diabetes: Retinopathy Screening [facility] Start: 1955 Hepatitis C screen Hepatitis C screen [place], [place] Start: 1955 Screening for malignant neoplasm of colon [facility] End: 06-09-2019 ANTI-PHOSPHOLIPID AB ANTI-PHOSPHOLIPID AB Lab Routine One Time for 1 Occurrences starting 06/09/2019 until 06/09/2019 [place] Comment on above: One Time for 1 Occurrences starting 05/22 until 06/09/2019 ANTI-PHOSPHOLIPID AB ANTI-PHOSPH OLIPID AB Lab Routine 06/09/2019 9:41 AM EDT [place] Basic metabolic 2000 panel Basic Metabolic Panel Lab Routine Daily until discontinued starting 06/07/2019, 3 completed [place] Comment on above: Daily until discontinued starting 2018, 3 completed CBC Auto Differential CBC Auto D ifferential Lab Routine Daily until discontinued starting 06/07/2019, 3 completed [place] Comment on above: Daily until discontinued starting 2018, 3 completed End: 06-07-2019 Diagnostic Cardiac Green Chain Operator Procedure Diagnostic Cardiac Green Chain Operator Procedure Cardiac Cath Routine One Time for 1 Occurrences starting 06/07/2019 until 06/07/2019 [place] Comment on above: One Time for 1 Occurrences starting 05/22 until 06/07/2019 End: 06-09-2019 Dilute Deepak Viper Dilute Deepak Viper Lab Routine One Time for 1 Occurrences starting 06/09/2019 until 06/09/2019 [facility] Comment on above: One Time for 1 Occurrences starting 05/22 until 06/09/2019 Dilute Deepak Viper Dilute Jaime ell Viper Lab Routine 06/09/2019 9:41 AM EDT [facility] End: 06-09-2019 FACTOR 5 LEIDEN FACTOR 5 LEIDEN Lab Routine One Time for 1 Occurrences starting 06/09/2019 until 06/09/2019 [facility] Comment on above: One Time for 1 Occurrences starting 05/22 until 06/09/2019 End: 06-09-2019 FACTOR 8 ASSAY FACTOR 8 ASSAY Lab Routine One Time for 1 Occurrences starting 06/09/2019 until 06/09/2019 [facility] Comment on above: One Time for 1 Occurrences starting 05/22 until 06/09/2019 FACTOR 8 ASSAY FACTOR 8 ASSAY L ab Routine 06/09/2019 [facility] or [facility]AP Home BIPAP or CPAP Respiratory Care Routine Daily until discontinued starting 06/07/2019 [facility] Comment on above: Daily until discontinued starting 2018 Incentive spirometry Incentive s pirometry Respiratory Care Routine Daily until discontinued starting 06/06/2019 [facility] Comment on above: Daily until discontinued starting 2018 Initiate Oxygen Ther apy Protocol Initiate Oxygen Therapy Protocol Respiratory Care Routine Daily until discontinued starting 06/07/2019 [facility] [place] Comment on above: Daily until discontinued starting 2018 [facility] above: 4X Daily (AC & HS) until discontinued st arting 06/06/2019 As Needed until disc ontinued starting 06/06/2019 End: 06-09-2019 Protein C Functional Protein C Functional Lab Routine One Time for 1 Occurrences starting 06/09/2019 until 06/09/2019 [facility] Comment on above: One Time for 1 Occurrences starting 05/22 until 06/09/2019 Protein C Functional Protein C F unctional Lab Routine 06/09/2019 9:41 AM EDT [facility] End: 06-09-2019 Protein S Functional Protein S Functional Lab Routine One Time for 1 Occurrences starting 06/09/2019 until 06/09/2019 [facility] Comment on above: One Time for 1 Occurrences starting 05/22 until 06/09/2019 Protein S Functional Protein S F unctional Lab Routine 06/09/2019 9:41 AM EDT Gwendolyn PATEL JO[facility]CELY[facility] End: 06-09-2019 Prothrombin Gene Mutation Prothrombin Gene Mutation Lab Routine One Time for 1 Occurrences starting 06/09/2019 until 06/09/2019 [facility] Comment on above: One Time for 1 Occurrences starting 05/22 until 06/09/2019 End: 06-07-2019 Pulse oximetry, continuous Pulse oximetry, continuous Respiratory Care Routine Every 4hr for 24 Hours starting 06/06/2019 until 06/07/2019 [facility] Comment on above: Every 4hr for 24 Hours starting 06/06/20 until 06/07/2019 Immunizations Immunization Date Immunization Notes Care Provider Tyra dailey 03-20-2013 pneumococcal polysaccharide vaccine, 23 valent Milvia Palomo [facility] Payers Date Payer Category Payer Private Health Insurance RHETT FIELD [id number] 2023-Present [address] [place] [address] [id number] 2023 Private Health Insurance [id number] 2022 Self-pay [id number] 2018 Medicare MEDICARE MEDICAR E PART A AND B xxxxxxxxxxx 2018-Present [phone] [place] [address] xxxxxxxxxxx [id number] 1997 Medicare MEDICARE MEDICAR E PART B [id number] 1997-[place] [address] Medicare [id number] 1959 Medicare [id number] 1959 Unknown [id number] 1955 Unknown [id number] 2.16.840.1.475297.3.579.2 .175 1955 Unknown [id number] 2.16.840.1.878700.3.579.2 .593 1955 Unknown [id number] 2.16.840.1.264851.3.579.2 .593 1955 Unknown [id number] 2.16.840.1.372330.3.579.2 .593 1955 Unknown [id number] 2.16.840.1.973580.3.579.2 .593 1955 Unknown [id number] 2.16.840.1.160075.3.579.2 .593 1955 Unknown [id number] 2.16.840.1.576731.3.579.2 .593 1955 Unknown [id number] 2.16.840.1.601430.3.579.2 .593 1955 Unknown [id number] 2.16.840.1.961091.3.579.2 .593 1955 Unknown [id number] 2.16.840.1.638307.3.579.2 .727 1955 Unknown [id number] 2.16.840.1.255332.3.579.2 .727 1955 Unknown [id number] 2.16.840.1.894968.3.579.2 .727 1955 Unknown [id number] 2.16.840.1.948537.3.579.2 .727 1955 Unknown [id number] 2.16.840.1.006915.3.579.2 .727 1955 Unknown [id number] 2.16.840.1.452603.3.579.2 .727 1955 Unknown [id number] 2.16.840.1.641142.3.579.2 .727 1955 Unknown [id number] 2.16.840.1.524970.3.579.2 .727 1955 Unknown [id number] 2.16.840.1.099146.3.579.2 .727 1955 Unknown [id number] 2.16.840.1.758357.3.579.2 .727 1955 Unknown [id number] 2.16.840.1.699136.3.579.2 .727 1955 Unknown [id number] 2.16.840.1.613323.3.579.2 .727 1955 Unknown [id number] 2.16.840.1.397125.3.579.2 .727 1955 Unknown [id number] 2.16.840.1.626916.3.579.2 .1259 1955 Unknown [id number] 2.16.840.1.612595.3.579.2 .1259 1955 Unknown [id number] 2.16.840.1.379862.3.579.2 .1259 Medicare Medicare Outpatient [id number] Private Health Insurance [facility] [id number] Unknown [id number] 2.16.840.1.541104.3.579.2 .531 Social History Date Type Detail Facility Start: 06-06-2019 End: 08-05-2023 Tobacco smoking status NHIS Never smoker [facility] Start: 06-06-2019 End: 09-26-2023 Alcohol intake Never [facility] JOYCELYN Start: 06-05-2019 History SDOH Alcohol Frequency 1 [facility] JOYCELYN Start: 1955 Sex Assigned At Not on file M [facility] JOYCELYN Tobacco smoking status Never [facility] Start: 06-25-2021 End: 08-04-2022 Tobacco smoking status NHIS Ex-smoker (finding) [facility] Start: 1955 Sex Assigned At Male F [facility] Start: 08-05-2023 Tobacco use and exposure Smokeless tobacco non-user [facility] Start: 09-26-2023 Alcohol intake Ex-drinker (finding) [facility] Start: 09-26-2023 History of Social function [facility] Healthcare Medical Equipment Procedure Code Equipment Code Equipment Origin al Text Equipment Identifier Dates 1 each by In Vit ro route in the morning and 1 each in the evening and 1 each before bedtime. [id number] Start: 09-26-2023 1 each in the morning and 1 each in the evening and 1 each before bedtime. [id number] Start: 09-26-2023 Functional Status Date Assessment Result Facility 02-02-2023 Functional Status N/A [facility] 11-03-2022 Functional Status N/A [facility] 10-06-2022 Functional Status N/A [facility] 08-04-2022 Functional Status N/A [facility] 06-30-2022 Functional Status No [facility] 06-25-2022 Functional Status N/A [facility] 06-02-2022 Functional Status N/A [facility] 04-21-2022 Functional Status N/A [facility] Clinical Notes 04-21-2022 to 10-31-2023 Note Date & Type Note Facility 10-31-2023 Note CLINICAL SOCIAL WORK THERAPIST: Prostate 28/28 Prostate completed 07/2023. Vitals WNL. Pt denies any dysuria, hematuria. Pt. Denies any diarrhea. Pt. Denies any pain. [facility] 10-31-2023 Note [facility] Department of Radiation Oncology [address] [place] [address] RADIATION ONCOLOGY FOLLOW UP NOTE Date of Service: 10/31/23 Patient Name: Eunice Marte Patient : 1955 Diagnosis: 67-year-old man diagnosed in June 2022 with intermediate risk prostate cancer (cT2a N0 M0 Stage IIB, PSA 11.09 ng/mL, GG2) with a high-risk Decipher genomic score 0.73, completed a course of moderately hypofractionated external beam radiotherapy on 08/02/2023, on relugolix/Orgovyx. Chief Complaint: I have prostate cancer. Interval Hx: Patient returns in initial postradiation visit. We last saw him in July at the conclusion of his radiotherapy course, as noted above. Since then, he's been feeling tired, states he sleeps a lot; he's gained weight. Patient is on Orgovyx. He had a PSA checked in July, it was 0.1 ng/mL. IPSS/AUA score is 16-17/35, about the same as during the consultation. He says he is mostly satisfied with his QOL due to urinary symptoms. He has regular bowel movements, denies BRBPR or changes in stool color/caliber/consistency. Original Consultation History of Present Illness: Patient presents in initial Radiation Oncology consultation as per the request of Dr. Acosta. We have been asked to evaluate the patient for radiotherapy options. Mr. Eunice Marte is a 67 y.o. man with extensive medical history (HTN, HLD, Diabetes Mellitus Type 2, CKD III, Stroke (04/2015 resulted in right sided weakness since has improved), CAD, [place] in 2021 on ASA 81mg s/p implantable loop recorder, LE DVT (not on current anticoagulation), Asthma, ALLISON on CPAP, GERD, BPH, ED s/p placement of IPP in 2012), and a recent diagnosis of unfavorable intermediate risk prostate cancer. Patient presented with an elevated PSA a couple years ago, and has beenclosely monitored. Most recently, he had a decipher genomic score testing, that yielded a high risk score. He is medically inoperable. Staging work-up demonstrated localized disease only. Symptom-ron, patient has mild to moderate lower urinary tract symptoms. On our AUA symptom score questionnaire, he is scored 7/35, however records demonstrate that his score was up to 16/35, with a quality of life rated as 5 over the (unhappy) despite being on Myrbetriq 50 mg daily. Some of his lower urinary tract symptoms are secondary to to residual deficits from CVA in 2015. THANH score is 1, patient has an IPP in place, not sexually active since stroke in 2014. I reviewed the patient's oncologic, medical, surgical, social, and family history, as well as allergies/medications as per the medical record. Radiation Treatments Historical Plans Prostate & SV Most recent treatment: Dose planned: 250 cGy (fraction 28 on 08/02/2023) Total: Dose planned: 7,000 cGy (28 fractions) Elapsed Days: 42 Reference Points Prostate & SV Most recent treatment: Dose given: 250 cGy (on 08/02/2023) Total: Dose given: 7,000 cGy Elapsed Days: 42 Social Hx: He reports that he quit [...] have been reviewed and are negative. RoS(+) frequency, urgency and weak stream ~50% of the time; nocturia 3-4; otherwise negative for incomplete bladder emptying, intermittency, or straining. Patient is on Myrbetriq. Thanh score is 1/21 corresponding to severe ED. Patient is not sexually active since his CVA. Physical Exam: Wt Readings from Last 5 Encounters: 09/20/23 106 kg (234 lb) 07/27/23 104 kg (228 lb 12.8 oz) 07/21/23 104 kg (229 lb 9.6 oz) 07/13/23 100 kg (221 lb 6.4 oz) 07/07/23 99.7 kg (219 lb 12.8 oz) VS Reviewed. GENERAL: ECOG 2, well-appearing, in no apparent distress, alert and fully oriented, answers questions appropriately, accompanied by and great-granddaughter. HEENT: Normocephalic, atraumatic, PER, EOMI, mucous membranes moist, no suspicious asymmetry or abnormal mass lesions. NECK: No cervical or supraclavicular lymphadenopathy. ABD: No visceromegaly or masses. EXTREMITIES: Normal range of motion, no cyanosis/clubbing/edema. Uses a cane to assist with ambulation. Pityriasis versicolor appreciated on forearms bilaterally. LYMPH: No appreciable adenopathy. 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 PSYCH: Appropriate affect for the clinical situation. Insight and judgment not impaired. LAB (more content not included)... [facility] 09-20-2023 Note aPATIENT: Eunice noble DATE OF : 1955 DATE OF VISIT: 09/20/23 Urology Clinic H&P PHYLLIS ACOSTA M.D., F.A.C.S. 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 Eunice Marte is a 67 y.o. -[place] male with history of HTN, HLD, Diabetes Mellitus Type 2, Stroke (04/2015 resulted in right sided weakness since has improved), CAD, [place] in 2021 on ASA 81mg s/p implantable [...] urologist Milvia Daniel MD on 07/06/2022 at [facility] for a total of 24 cores (12 systematic cores x2 and 4 cores obtained from [facility] #1). Pathology per [facility] review revealed acinar adenocarcinoma of the [...] distant metastatic disease. Decipher prostate biopsy genomic conveyor operator was obtained on prostate biopsy above, reported on 09/26/2022 revealed a high genomic score 0.73, 5-year and 10-year risk of metastasis with RT or RP of 4.3% and 10.8% respectively, 15-year risk of prostate cancer mortality with RT or RP 13.5%. He was counseled for treatment options of surgery versus radiation by his urologist and was referred for consideration of Retzius sparing prostatectomy. Mr. Marte started EBRT to prostate and SV's on 06/21/2023, received 28 fractions for a total of 7000 cGy, completed on 08/02/2023, concurrently he started relugolix 120 mg/day on 06/08/2023. At this visit, Mr. Marte presents for follow-up using a cane accompanied by his . It appears patient's memory has been affected by his a prior stroke, waxing and waning. He denies changes in health since last visit, specifically no gross hematuria, dysuria, however, has moderately significant LUTS, nocturia x2-3 he reports being satisfied with his urination. Prior AUA-SI 16/35, QoL 5 (unhappy) despite being on Myrbetriq 50 mg daily for urinary urgency/urge incontinence since his stroke. THANH 0/25 (has IPP in place, not currently sexually active since stroke in 2014). He can walks using a cane a couple of blocks before he gets tired. He denies chest pain or shortness of breath or significant hot flashes or fatigue since he started Orgovyx. I had a long discussion with Mr. Marte and his regarding his a clinical presentation, symptoms, exam finding including BHUPINDER 12/07/2022 45 g prostate, with left side induration, no discrete nodule, cT2a. I reviewed and discussed outside leadership development consultant note, outside laboratory tests, outside imaging including MRI prostate and PSMA, pathology result of prostate biopsy, and decipher score. Mr. Marte has unfavorable intermediate risk prostate cancer by NCCN criteria since he has 2 intermediate risk factors (PSA 11.09 ng/mL and GG2 prostate cancer), however, decipher genomic conveyor operator designate patient as a high risk with a score of 0.73. His ECOG performance status 2. After thorough and prolonged discussion, Mr. Marte underwent EBRT to the prostate and SV concurrently with ADT with Orgovyx which he is currently taking. I reviewed and discussed most recent PSA 0.1 ng/ML, testosterone 6 ng/dL on 08/09/2023 indicating appropriate response to EBRT and hormone therapy. Further I reviewed and discussed DEXA bone density scan on 05/2023 revealed normal bone mineral density per WHO criteria. Mr. Marte had an ECHO 02/17/2023 revealed normal global left ventricular systolic function, EF 55 % visually, no regional wall motion (more content not included)... [facility] 07-27-2023 Note [facility] a t [facility] Department of Radiation Oncology [address] [place] [address] Date of Service: 07/27/23 Patient Name: Eunice [...] going to bed. Take oxybutynin at bedtime. Silvano Martinez MD Patient Care Team: Adilson Salazar MD as PCP - General Valdemar Ramos MD as Consulting Physician (Transplant Surgery) Phyllis Acosta MD as Consulting Physician (Urology) Silvano Martinez (Radiation Oncology) [facility] 07-27-2023 Note CLINICAL SOCIAL WORK THERAPIST NOTE: Eunice is unaccompanied for this visit. Pt has completed 24/28 fx RT to Prostate/Svs. Pt denies c/o pain, dysuria, hematuria, diarrhea, blood in stool, nocturia or fatigue. [facility] 07-21-2023 Note [facility] a t [facility] Department of Radiation Oncology [address] [place] [address] Date of Service: 07/21/23 Patient Name: Eunice [...] going to bed. Take oxybutynin at bedtime. Silvano Martinez MD Patient Care Team: Adilson Salazar MD as PCP - General Valdemar Ramos MD as Consulting Physician (Transplant Surgery) Phyllis Acosta MD as Consulting Physician (Urology) Silvano Martinez (Radiation Oncology) [facility] 07-21-2023 Note OTV prostate Symptoms are manageable ramses Stoner [facility] 07-13-2023 Note CLINICAL SOCIAL WORK THERAPIST: Prostate fx. Vitals WNL, rad site WNL. Pt cont with nocturia which was present prior to tx. Pt. Denies any dysuria, hematuria or diarrhea. Continues with fatigue. Is continuing with ADL's. No further complaints. [facility] 07-13-2023 Note [facility] a t [facility] Department of Radiation Oncology [address] [place] [address] Date of Service: 07/13/23 Patient Name: Eunice [...] the bladder completely before going to bed. Silvano Martinez MD Patient Care Team: Adilson Salazar MD as PCP - General Valdemar Ramos MD as Consulting Physician (Transplant Surgery) Phyllis Acosta MD as Consulting Physician (Urology) Silvano Martinez (Radiation Oncology) [facility] 07-07-2023 Note CLINICAL SOCIAL WORK THERAPIST NOTE: Eunice is accompanied by Shayy for [...] states normal bowel movements. Reports mild fatigue. [facility] 07-07-2023 Note [facility] a t [facility] Department of Radiation Oncology [address] [place] [address] Date of Service: 07/07/23 Patient Name: Eunice [...] the bladder completely before going to bed. Silvano Martinez MD Patient Care Team: Adilson Salazar MD as PCP - General Valdemar Ramos MD as Consulting Physician (Transplant Surgery) Phyllis Acosta MD as Consulting Physician (Urology) Silvano Martinez (Radiation Oncology) [facility] 06-30-2023 Note Rehab Services Rad/[facility] Screen Therapy Screen Completed-No Needs at [...] arise-Physician Aware. Brandon Trejo MOT, OTR/L, CLT [facility] 06-30-2023 Note Accompanied by grand daughterJill. Denies urgency, incomplete emptying, burning. States has increased frequency, nocturia 4-5 times per night. Denies diarrhea. Denies hematuria or hematochezia. States has noticed increase in fatigue. Encouraged to take a walk/increase activity during day. Denies dyspnea or cough. [facility] 06-30-2023 Note [facility] a t [facility] Department of Radiation Oncology [address] [place] [address] Date of Service: 06/30/23 Patient Name: Eunice [...] low dose oxybutynin to take at bedtime. Silvano Martinez MD Patient Care Team: Adilson Salazar MD as PCP - General Valdemar Ramos MD as Consulting Physician (Transplant Surgery) Phyllis Acosta MD as Consulting Physician (Urology) Silvano Martinez (Radiation Oncology) [facility] 06-23-2023 Note CLINICAL SOCIAL WORK THERAPIST: Prostate 11/16 fx. Pt vitals with bp above baseline, pt remains asymptomatic. Pt. States he did not take his bp med and will do so when he returns home. Pt. Denies any difficulties urinating, diarrhea or pain. No further complaints at this time. [facility] 06-23-2023 Note [facility] a t [facility] Department of Radiation Oncology [address] [place] [address] Date of Service: 06/23/23 Patient Name: Eunice [...] Patient verbalized a good understanding to everything. Silvano Martinez MD Patient Care Team: Adilson Salazar MD as PCP - General Valdemar Ramos MD as Consulting Physician (Transplant Surgery) Phyllis Acosta MD as Consulting Physician (Urology) Silvano Martinez (Radiation Oncology) [facility] 06-07-2023 Note aPATIENT: Eunice noble DATE OF : 1955 DATE OF VISIT: 06/07/23 Urology Clinic H&P PHYLLIS ACOSTA M.D., F.A.C.S. 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 Eunice Marte is a 67 y.o. -[place] male with history of HTN, HLD, Diabetes Mellitus Type 2, Stroke (04/2015 resulted in right sided weakness since has improved), CAD, [place] in 2021 on ASA 81mg s/p implantable [...] urologist Milvia Daniel MD on 07/06/2022 at [facility] for a total of 24 cores (12 systematic cores x2 and 4 cores obtained from [facility] #1). Pathology per [facility] review revealed acinar adenocarcinoma of the prostate, [place] 3+4= 7; GG 2 involving 2/13 in [...] distant metastatic disease. Decipher prostate biopsy genomic conveyor operator was obtained on prostate biopsy above, reported [...] nodule, cT2a. I reviewed and discussed outside leadership development consultant note, outside laboratory tests, outside imaging including MRI prostate and PSMA, pathology result of prostate biopsy, and decipher score. Mr. Marte has unfavorable intermediate risk prostate cancer by NCCN criteria since he has 2 intermediate risk factors (PSA 11.09 ng/mL and GG2 prostate cancer), however, decipher genomic conveyor operator designate patient as a high risk with a score of 0.73. His ECOG performance status 2. After thorough and prolonged discussion last visit and today, Mr. Marte and his opted to undergo EBRT to prostate and ADT with Orgovyx. He was approved for ADT with Orgovyx by patient special events assistant program however he has not picked [...] extensively for yeison (more content not included)... [facility] [place] 05-30-2023 Note [facility] a t [facility] Department of Radiation Oncology [address] [place] [address] RADIATION ONCOLOGY CONSULTATION NOTE Date of Service: [...] right sided weakness since has improved), CAD, [place] in 2021 on ASA 81mg s/p implantable loop recorder, LE DVT (not on current anticoagulation), Asthma, ALLISON on CPAP, GERD, BPH, ED s/p placement of IPP in 2012), and a recent diagnosis of unfavorable intermediate risk prostate cancer. Patient presented with an elevated PSA a couple years ago, and has been closely monitored. Most recently, he had a decipher genomic score testing, that yielded a high [...] to to residual deficits from CVA in 2015. THANH score is 1, patient has an IPP in place, not sexually active since stroke in 2015. I reviewed the patient's oncologic, medical, surgical, [...] bilaterally. LYMPH: No appreciable adenopathy. NEURO: AOx4, camera prototyping engineer grossly normal, ambulates with a cane, mild [...] performed by urologist Dr. Milvia Daniel at [facility] (more content not included)... [facility] 05-30-2023 Note SKILLED NURSING FACILITY COUNSELOR consult for prost ate cancer. Pt is here with his Shayy. Work note given to patient's . Sgoatley rma [facility] 05-30-2023 Note PHYSICIAN CLINICAL T REATMENT PLANNING [...] pelvis Isocenters: tentative isocenter Slice thickness: 3mm [facility] Scan requested: No Simulation will be performed on CT Scanner to accomplish a reproducible treatment position, to determine optimal beam arrangements and to .design beam modifying devices and immobilization devices: Alphacradle. Verification Sim (films Day1): Yes Ongoing images: Daily image guided radiotherapy. Image fusion requested: will be performed using patient's MRI A 4D CT is not necessary. Additional comments: [facility] 04-13-2023 Note Email Cecily Bowden and [employer] when the patient is getting the medication. Juyl Rankin PharmD, JEFFREY 04/20/23 1:29 PM [facility] [phone] [facility] 04-13-2023 Note Pt was approved for PAP because insurance is no longer covering it. is supposed to call PAP back today so they can discuss shipping out medication. July Rankin PharmD, BCACP 06/22/23 9:13 AM [facility] [phone] [facility] 04-13-2023 Note Spoke to pts Latanya johnson, she is going to call [employer] first thing in the AM and let [...] they are at with signing up for [employer]. July Rankin PharmD, JEFFREY 05/26/23 4:48 PM [facility] [phone] [facility] 04-13-2023 Note Spoke to pts . S he mailed the forms back to us today and the forms to the insurance. I will get the doctor portion so everything is ready to go when we get his portion in the mail. July Rankin PharmD, JEFFREY 05/09/23 1:36 PM [facility] [phone] [facility] 04-13-2023 Note LM for pts to s ee if they have received the bridge program form I mailed and if they received the [employer] info and SCC from insurance. July Rankin PharmD, JEFFREY 05/03/23 9:28 AM [facility] [phone] [facility] 04-13-2023 Note Spoke to pts , t he insurance sent a questionnaire that she doesn't know how to fill out so they are sending her a hard copy. I found a bridge program form and am mailing that to them as she doesn't have an email. July Rankin PharmD, JEFFREY 04/27/23 4:18 PM [facility] [phone] [facility] 04-13-2023 Note I called today and s eron with the patient. He did not know if they had received the application or if it was sent back--I asked him to please have his call us when she is available to let us know. Autumn Ayala PharmD, JEFFREY, CSP 05/18/23 10:15 AM [facility] [phone] [facility] 04-13-2023 Note Feed Inspection Supervisor macario bell from [employer] PAP. She was wondering if the patient has a high copay or if the medication is not covered. It looks like PA is approved, but insurance is requiring enrollment in [employer] and this information has been provided to patient. We need to find out if patient has enrolled in [employer]; if patient has a high copay then [...] as well (likely next week). Ivonne (from [employer]) called back to let me know insurance requires the third democrat assistance because they do split billing between patient and savings card. Tenzin provided the following number to [employer] [phone] for patient to call and enroll. At this time we cannot provide any assistance until patient is enrolled in [employer]. Robb Jordan PharmD, [facility] Outpatient Clinical Pharmacist [facility] [phone] 05/24/23 11:39 AM [facility] 04-13-2023 Note Lm for pt or to see what [employer] SCC told them. July Rankin PharmD, JEFFREY 04/22/23 10:39 AM [facility] [phone] [facility] 04-13-2023 Note Received PA approval through [employer]. However, when I run the prescription it states that the pt must call [employer] and enroll. Most likely must get PAP. Might be able to get an override from insurance to allow to fill while working on PAP. However, pt must enroll with [employer] to start the process. I spoke to the patient's and explained this to the best of my ability. Will follow-up in a couple days to see if they need help with PAP forms or where it needs to be filled. July Rankin PharmD, JEFFREY 04/19/23 3:03 PM [facility] [phone] [facility] 04-13-2023 Note I received a fax fro m [employer] [facility] stating the patient has been approved for PAP. LM with PAP to see why since he got it for $10 with the copay card. I tried to reach PAP yesterday and was on hold for 20 minutes. July Rankin PharmD, JEFFREY 06/21/23 9:52 AM [facility] [phone] [facility] 04-13-2023 Note Patient's plann ing on picking up medication, hasn't yet. I reached out to [place] office and let them know. Will no longer follow-up. July Rankin PharmD, JEFFREY 06/03/23 9:04 AM [facility] [phone] [facility] 04-13-2023 Note I was able to call t he number in the claim reject and finally able to get the medication to go through and they gave me copay card info. $10 copay, could mail out tomorrow. LM for pts . July Rankin PharmD, JEFFREY 06/01/23 10:13 AM [facility] [phone] [facility] 04-13-2023 Note Patient called back and she said that she signed him up and they will send her the card in the mail. Antoinette Gan, [facility] 05/31/23 2:37 PM [facility] 04-13-2023 Note Spoke to pts , s he will try to call [employer] now and call me back. She seems very overwhelmed. July Rankin PharmD, JIGARCP 05/31/23 2:20 PM [facility] [phone] [facility] 04-13-2023 Note Spoke to Chloéaltheaisrael arnett she said he is eligible for the bridge program so she will send it over to the pharmacy so he can get started. They should receive a call from [facility] by the end of the week. Left a detailed message with this information and to expect a call. Also want to know what she heard from [employer]. July Rankin PharmD, JIGARCP 05/31/23 10:04 AM [facility] [phone] [facility] 04-13-2023 Note Specialty Pharmacy N ote: [facility] Supervising Physician & Clinic:?? Dr. Phyllis Acosta, Oncology [facility] is a 67 y.o. year old male patient with PMH of: Past Medical History: Diagnosis Date Asthma BPH (benign prostatic hyperplasia) CAD (coronary artery disease) CKD (chronic kidney disease), stage III (CMS/[facility]) Depression DM (diabetes mellitus) ([facility]/HCC) 2007 Type II Erectile dysfunction GERD (gastroesophageal reflux disease) H/O deep venous thrombosis HLD (hyperlipidemia) HTN (hypertension) Myocardial infarction ([facility]/HCC) 2021 ALLISON on CPAP Prostate cancer ([facility]/HCC) Status post placement of implantable loop recorder Stroke ([facility]) 04/2015 right sided weakness PharmD consulted for [...] we receive from insurance. Robb Jordan PharmD, [facility] Outpatient Clinical Pharmacist [facility] [id number] 04/13/23 11:52 AM [facility] 04-13-2023 Note Spoke to pts . [facility] support is supposed to send the medication out today. Recommend she calls them 1 week before he will run out for refills. July Rankin PharmD, BCACP 06/23/23 8:54 AM [facility] [phone] [facility] [place] 04-13-[address] Acosta called to ask if we had this patient's medication ready. I informed him that yes we do. He also asked about the application for the [facility] PAP that was emailed to him. I let him know to disregard it because from what I can see, the insurance has approved the medication. Malathi Cordova, [facility] 06/07/23 10:55 AM [facility] 04-13-2023 Note Pts never sorto dAbran Anthony LM for her this morning to see where we are at with things. Jacky NievesD, BCACP 05/30/23 9:18 AM [facility] [phone] [facility] 04-13-2023 Note Faxed application to [facility] program. July Rankin PharmD, BCACP 05/19/23 12:57 PM [facility] [phone] [facility] 04-12-2023 Note aPATIENT: Eunice noble DATE OF : 1955 DATE OF VISIT: 04/12/23 Urology Clinic H&P PHYLLIS ACOSTA M.D., F.A.C.S. 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 Eunice Marte is a 67 y.o. -[place] male with history of HTN, HLD, Diabetes Mellitus Type 2, CKD III, Stroke (04/2015 resulted in right sided weakness since has improved), CAD, [place] in 2021 on ASA 81mg s/p implantable [...] urologist Milvia Daniel MD on 07/06/2022 at [facility] for a total of 24 cores (12 systematic cores x2 and 4 cores obtained from [facility] #1). Pathology per [facility] review revealed acinar adenocarcinoma of the prostate, [place] 3+4= 7; GG 2 involving 2/13 in [...] distant metastatic disease. Decipher prostate biopsy genomic conveyor operator was obtained on prostate biopsy above, reported [...] nodule, cT2a. I reviewed and discussed outside leadership development consultant note, outside laboratory tests, outside imaging including MRI prostate and PSMA, pathology result of prostate biopsy, and decipher score. Mr. Marte has unfavorable intermediate risk prostate cancer by NCCN criteria since he has 2 intermediate risk factors (PSA 11.09 ng/mL and GG2 prostate cancer), however decipher genomic conveyor operator designate patient as a high risk with [...] (benign prostatic hyperplasia), (more content not included)... [facility] [place] 03-17-2023 Note [place] [facility] - [facility] Heart and Vascular Center Subjective Eunice [...] occasional Drug use: Not Currently Types: Marijuana LUDMILA Keita is seen in follow up. He is [...] and at be (more content not included)... [facility] [place] 02-23-2023 Note [place] [facility] - [facility] Asher Marte is a 67 y.o. year old male patient being seen for Follow-up (Echo and stress test. Pt is here for prostate surgery clearance) Patient Active Problem List Diagnosis Prostate cancer ([facility]/HCC) Cerebrovascular accident (CVA) ([facility]) History of diabetes mellitus History of DVT (deep vein thrombosis) History of hypertension History of ischemic left MCA stroke Hyperlipidemia Hypertension Partial seizure (CMS/HCC) Type 2 diabetes mellitus without complication ([facility]) Osteoarthritis of knee Family History Problem Relation [...] montelukast (Singulair) 1 (more content not included)... [facility] [place] 02-02-2023 Hospital Discharge instructions Patient Education 02/02/2023 [...] under a microscope. This is called the Florence score and the total score can range from 6 10, indicating how likely it is that the cancer will spread (metastasize) to other parts of the body. The higher the score, the greater the likelihood that the cancer will spread. Florence 6 or lower: This indicates that the cancer cells look similar to normal prostate cells (well differentiated). Florence 7: This indicates that the cancer cells [...] stress of having cancer. General instructions Take aekv-wju-yioiiqr and prescription medicines only as told by your health care provider. If you have to go to the hospital, notify your cancer specialist (oncologist). Keep all follow-up visits. This is important. Where to find more information [place] [employer]: www.cancer.org [place] Society of Clinical Oncology: www.cancer.net National Cancer [place]: www.cancer.gov Contact a health care provider if: [...] provider. Document Revised: 11/04/2021 Document Reviewed: 11/04/2021 [employer] Patient Education 2022 [employer]. Follow Up Care 11/03/2022 08:38:11 With:Dewey COTTO, ARIAN Alegria, URO Address: When: Unknown [facility] 11-03-2022 Hospital Discharge instructions Patient Education [...] who: Are older than age 65. Are -Bhutanese. Are obese. Have a family history of [...] cells. Follow these instructions at home: Take girc-zwg-xxtvypu and prescription medicines only as told by [...] 08/08/2006 Document Revised: 07/21/2018 Document Reviewed: 04/18/2017 [employer] Patient Education 2020 [employer]. Follow Up Care 10/06/2022 08:46:11 With:Milvia Palomo MD, URL, URO Address: When: Unknown [facility] 10-06-2022 Hospital Discharge instructions Patient Education [...] 07/25/2013 Document Revised: 03/28/2019 Document Reviewed: 03/28/2019 [employer] Patient Education 2020 [employer]. 10/06/2022 08:07:38 Brachytherapy for Prostate Cancer Brachytherapy [...] including vitamins, herbs, eye drops, creams, and mbxt-qfy-tqtwrek medicines. Any problems you or family members [...] 01/16/2007 Document Revised: 07/21/2018 Document Reviewed: 08/17/2017 [employer] Patient Education 2020 [employer]. 10/06/2022 08:07:36 Laparoscopic Prostatectomy Laparoscopic Prostatectomy Laparoscopic [...] including vitamins, herbs, eye drops, creams, and lwau-wiq-algbkym medicines. Any problems you or family members [...] 08/08/2006 Document Revised: 07/21/2018 Document Reviewed: 07/25/2017 [employer] Patient Education 2020 [employer]. 10/06/2022 07:50:11 Prostate Cancer Prostate Cancer The [...] who: Are older than age 65. Are -Bhutanese. Are obese. Have a family history of [...] cells. Follow these instructions at home: Take oxdx-nya-xsvpyin and prescription medicines only as told by [...] 08/08/2006 Document Revised: 07/21/2018 Document Reviewed: 04/18/2017 [employer] Patient Education 2020 [employer]. Follow Up Care 08/04/2022 10:29:21 With:Dewey COTTO, ARIAN Alegria, URO Address: When: Unknown [facility] 08-04-2022 Hospital Discharge instructions Patient Education 08/04/2022 [...] including vitamins, herbs, eye drops, creams, and feza-qil-fufviem medicines. Any problems you or family members [...] 01/16/2007 Document Revised: 07/21/2018 Document Reviewed: 08/17/2017 [employer] Patient Education 2020 [employer]. Follow Up Care 06/02/2022 10:42:40 With:Dewey COTTO, ARIAN Alegria, URO Address: When:1 month Comments:Discuss PSMA PET scan & treatment options [facility] 07-21-2022 Note OPERATIVE NOTE OPERATION DATE: 07/21/2022 [...] in good condition. CC: Adilson Salazar M.D. [facility] 07-06-2022 Hospital Discharge instructions Patient Education 07/06/2022 [...] for your post-operative appointment in 1-2 weeks [phone] or [phone] Follow Up Care 06/02/2022 10:25:59 With:Milvia Palomo Address: [address] [place] [phone] Business (1) [address], [place] [address] [place] [phone]- [phone] Business (1) When: Unknown Comments:Office to followup appointment in 2 weeks for pathology review [facility] 07-06-2022 Evaluation + Plan note Extrac shelby from: Title:Post-anesthesia - General Author:Scout Dumont DO Date:07/06/22 Plan Transfer/ Discharge: Condition stable. Extracted from: Title:EU - MRI fusion transp erineal prostate biopsy Author:Milvia Palomo MD Date:07/06/22 Impression and Plan Diagnosis Elevated PSA (NJS80-RY R97.20, Discharge, Medical). Diagnosis Elevated PSA (GDS32-IX R97.20, Discharge, Medical). Counseled: Patient, Family. Extracted from: Title:Pre-anesthesia - Adult Author:Scout Lamas Jr., DO Date:07/06/22 Plan [place] Society of Anesthesiologists (ASA) physical status classification: Class III. Anesthetic Preoperative Plan Anesthesia: Monitored anesthesia care. Anesthetic plan, risks, benefits, and alternatives discussed with the patient and/or family. Patient verbalized understanding. Adverse reactions, complications, and alternatives discujssed. Consent signed and on chart.. Future Appointments Appointment Date:07/21/2022 09:30:00 AM Scheduled Provider:Milvia Palomo MD Location:[facility] Appointment Type:URO Office Visit Appointment Date:10/12/2022 10:30:00 AM Scheduled Provider:Asim Tanner Jr., MD Location:[facility] Appointment Type:URO Office Visit [facility]11-14-2022 Note [id number]:127[facility] 06-25-2022 NoteChief Complaint consultation for LLQ pain [...] mL, NEB, BID c (more content not included)...[facility] Result Comment: Electronically Signed By: BASIL COTTO, Curtis Monzon\Date and Time Signed: 06/25/22 15:55 [id number] Note [id number]:127[facility] 06-02-2022 Hospital Discharge instructions Patient Education [...] Follow these instructions at home: Medicines Take welc-vqa-jkzlbkj and prescription medicines only as told by [...] 08/05/2001 Document Revised: 07/21/2018 Document Reviewed: 08/24/2017 [employer] Patient Education 2020 [employer]. Follow Up Care 04/21/2022 12:43:56 With:Dewey COTTO, ARIAN Alegria, URO Address: [address], [facility] [place] [phone] When: Unknown [facility] 08-31-2022 Hospital Discharge instructions Patient Education 04/21/2022 [...] have oneof these risk factors: ?Being of -Bhutanese descent. ?Having a family history of prostate [...] you: Are older than age 55. Are -Bhutanese. Have a father, brother, or uncle who [...] 05/19/2018 Document Revised: 07/21/2018 Document Reviewed: 05/19/2018 [employer] Patient Education 2020 [employer]. Follow Up Care 03/08/2022 11:37:35 With:Dewey COTTO, ARIAN Alegria, URO Address: When: Unknown [facility] evaluation + Plan note Future Appointments Appointment Date:05/12/2022 10:45:00 AM Scheduled Provider:Milvia Palomo MD Location:[facility] Appointment Type:URO Office Visit Appointment Date:10/12/2022 10:30:00 AM Scheduled Provider:Asim Tanner Jr., MD Location:[facility] Appointment Type:URO Office Visit [facility] evaluation + Plan note Future Appointments Appointment Date:06/29/2022 03:30:00 PM Scheduled Provider: Location:[facility] Appointment Type:Surgical PAT FT Appointment Date:07/06/2022 01:30:00 PM Scheduled Provider: Location:[facility] Appointment Type:Surgery FT Appointment Date:07/21/2022 09:30:00 AM Scheduled Provider:Milvia Palomo MD Location:[facility] Appointment Type:URO Office Visit Appointment Date:10/12/2022 10:30:00 AM Scheduled Provider:Asim Tanner Jr., MD Location:[facility] Appointment Type:URO Office Visit [facility] evaluation + Plan note Future Appointments Appointment Date:06/29/2022 03:00:00 PM Scheduled Provider: Location:[facility] Appointment Type:Surgery PAT COVID Testing Appointment Date:06/29/2022 03:30:00 PM Scheduled Provider: Location:[facility] Appointment Type:Surgical PAT FT Appointment Date:07/06/2022 01:30:00 PM Scheduled Provider: Location:[facility] Appointment Type:Surgery FT Appointment Date:07/21/2022 09:30:00 AM Scheduled Provider:Milvia Palomo MD Location:[facility] Appointment Type:URO Office Visit Appointment Date:10/12/2022 10:30:00 AM Scheduled Provider:Asim Tanner Jr., MD Location:[facility] Appointment Type:URO Office Visit General Surgery [facility] Evaluation + Plan note Future Appointments Appointment Date:07/06/2022 01:30:00 PM Scheduled Provider: Location:[facility] Appointment Type:Surgery FT Appointment Date:07/21/2022 09:30:00 AM Scheduled Provider:Milvia Palomo MD Location:[facility] Appointment Type:URO Office Visit Appointment Date:10/12/2022 10:30:00 AM Scheduled Provider:Asim Tanner Jr., MD Location:[facility] App[facility]ments Appointment Date:09/15/2022 10:30:00 AM Scheduled Provider:Milvia Palomo MD Location:[facility] Appointment Type:URO Office Visit [facility] evaluation + Plan note Future Appointments Appointment Date:10/06/2022 07:45:00 AM Scheduled Provider:Milvia Palomo MD Location:[facility] Future Appointments Appointment Date:11/03/2022 10:10:00 AM Scheduled Provider:Milvia Palomo MD Location:[facility] Appointment Type:URO Office Visit Diagnostic Tests Pending * PSA Free & Total 10/06/22 [facility] evaluation + Plan note Future Appointments Appointment Date:02/02/2023 10:15:00 AM Scheduled Provider:Milvia Palomo MD Location:[facility] Appointment Type:URO Office Visit [facility] evaluation noteNo assessment information available [facility] Work Phone: evaluykleo note* Diagnosis Type 2 diabetes mellitus with hyperglycemia, with long-term current use of insulin (CMS/HCC) [facility] N[facility] No data available for this section [facility] Hospital Discharge instructions No data available for this section General Surgery [facility] Progress note No data available for this section [facility] Discharge Instructions * Discharge Instr - JOSIE* [...] Extended Emergency Contact Information Primary Emergency Contact: shayy marte Relation: Spouse Assistant Womens Volleyball Coach needed? No Past Surgical History: No past surgical history on file. Immunization History: There is no immunization history on file for this patient. Active Problems: Patient Active Problem List Diagnosis Code Cerebrovascular accident (CVA) ([facility]) I63.9 Acute left hemiparesis ([facility]) G81.94 History of ischemic left MCA stroke [...] (99.8 kg) Mental Status: {IP PT MENTAL STATUS:62932} IV Access: { JOSIE IV ACCESS:028870828} Nursing Mobility/ADLs: Walking {CHP DME ADLs:769429092} Transfer {CHP DME ADLs:589427653} Bathing {CHP DME ADLs:242157210} Dressing {CHP DME ADLs:121344748} Toileting {CHP DME ADLs:764811572} Feeding {CHP DME ADLs:302381279} Station Jailer {CHP DME ADLs:538959507} Med Delivery { JOSIE MED Delivery:966320997} Wound Care Documentation and Therapy: Elimination: Continence: Bowel: {YES / NO:} Bladder: {YES / NO:} Urinary Catheter: {Urinary Catheter:744504500} Colostomy/Ileostomy/Ileal Conduit: {YES / NO:} Date of Last BM: Intake/Output Summary (Last 24 hours) at 06/08/2019 1738 Last data filed at 06/08/2019 1600 Gross per 24 hour Intake Output 950 ml Net -950 ml I/O last 3 completed shifts: In: - Out: 950 [Urine:950] Safety Concerns: { JOSIE Safety Concerns:795090672} Impairments/Disabilities: { JOSIE Impairments/Disabilities:976062949} Nutrition Therapy: Current Nutrition Therapy: { JOSIE Diet List:574958819} Routes of Feeding: {P DME Other Feedings:193655120} Liquids: {Conference Services Coordinator liquid thickness:87786} Daily Fluid Restriction: {CHP DME Yes amt example:759497412} Last Modified Barium Swallow with Video (Video Swallowing Test): {Done Not Done Date:796291278} Treatments at the Time of Hospital Discharge: Respiratory Treatments: Oxygen Therapy: {Therapy; copd oxygen:76971} Ventilator: { CC Vent List:589135114} Rehab Therapies: {THERAPEUTIC INTERVENTION:5726616257} Weight Bearing Status/Restrictions: { CC Weight Bearin} Other Medical Equipment (for information only, NOT a DME order): {EQUIPMENT:867778264} Other Treatments: Patient's personal belongings (please select all that are sent with patient): {CHP DME Belongings:300864286} RN SIGNATURE: {Esignature:336452393} CASE MANAGEMENT/SOCIAL WORK SECTION Inpatient Status Date: 06/05/2019 Readmission Risk Assessment Score: Readmission Risk Risk of Unplanned Readmission: 13 Discharging to Facility/ Agency Name: [facility] Address: Fax: Dialysis Facility (if applicable) Name: Address: Dialysis Schedule: Phone: Fax: Mechanism Inspector/Supervisor Wet Pour signature: at2:35 PM PHYSICIAN SECTION Prognosis: Good [...] PM EDT CLINICAL PHARMACY NOTE: MEDS TO [facility] Patient?: No Total # of Prescriptions Filled: 5 The following medications were delivered to the patient: Folic acid 1mg Clopidogrel 75mg Metoprolol tartrate 25mg Atorvastatin 80mg tamsulosin 0.4mg Total # of Interventions Completed: 0 Time Spent (min): 5 Additional Documentation: meds delivered to patients 06-09-19 at 2:08pm * Isela Hernandez RN - 06/09/2019 12:34 AM EDT 0034: Pt transported to room 538. All belongings packed and sent. Report called to [employer]. * Kosta Macedo CAREER COACH - 06/08/2019 2:39 PM EDT Physical Therapy Facility/Department: [address] Daily Treatment Note NAME: Eunice Marte [...] Type 2 Diabetes _x__ Be safe with [place] teaching sheet / [facility] Disposal of Household Generated Sharps _x__ Type 2 Diabetes and Adding Insulin fold out with survival skills Contact number provided. Patient stated willing to follow up for outpatient DMED / work with [employer] chaudhary meal planing. Refer to Patient Education activity for more details. LUCRECIA CADE RN CDE * Keysha Urena, KAMALA - 06/08/2019 11:58 AM EDT Speech Language Pathology Speech Language Pathology [facility] Cognitive Treatment Note Date: 06/08/2019 Patient s Name: Eunice Marte Diagnosis: Patient Active Problem List Diagnosis Code Cerebrovascular accident (CVA) ([facility]) I63.9 Acute left hemiparesis ([facility]) G81.94 History of ischemic left MCA stroke [...] (100%) withmod verbal cues. State the Category ([place]): Pt stated 1/10 (10%) independently, increased to [...] Treatment completed by: Completed by: Erin Andrews, Sanding Machine Operator Clinician Cosigned By: Keysha Urena M.S.CCC/RN RESEARCH * Kosta Macedo PTA - 06/08/2019 10:31 AM EDT DATE: 06/08/2019 NAME: Eunice Marte : 1955 Patient not seen this date for Physical Therapy due to: [] Blood transfusion in progress [] Hemodialysis [] Patient Declined [] Spine Precautions [] Strict Bedrest [x] Surgery/ Procedure VL DUP LOWER EXTREMITY VENOUS BILATERAL (Order #[id number]) on 06/08/19 [] Testing [] Other [] [...] Name: Eunice Marte Patient : 1955 Room/Bed: 0515/0515-01 CHIEF COMPLAINT: Complaining of left facial droop, left-sided hemiparesis, slurred speech INTERVAL HISTORY: Admission (06/05/2019) Case of a 63 y.o. male patient with PMH of HTN, Diabetes, Stroke (4 years ago) who came to ED at [facility] after having a presentation of acute onset of left- sided weakness that began around 5 PM on June 05, 2019. Patient refers that he was around his house around that area he was feeling weak but then noticed that he was slurring the speech, have a left-sided facial droop, left- sided hemiparesis. At the [facility] NIH was calculated at 8 and decision was to give TPA. Patient was life flighted to [facility] and was given hydralazine to control his [...] were no complications encountered. Cardiovascular Diseases Fellow [facility] CONSTITUTIONAL: negative for fatigue and malaise [...] Neurology Resident PGY-3 Neuro Critical Care Pager [phone] 06/08/2019 6:04 AM Associated attestation - Omer [...] signs taken. Pt sleepy, but easy to arouse.Nursing Education Consultant called to let her know procedure was done. 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 [] Testing [] Other [] [...] EDT Speech Language Pathology Speech Language Pathology [facility] Speech / Cognitive Treatment Note Date: 06/07/2019 Patient s Name: Eunice Marte Diagnosis: Patient Active Problem List Diagnosis Code Cerebrovascular accident (CVA) ([facility]) I63.9 Acute left hemiparesis ([facility]) G81.94 History of ischemic left MCA stroke Z86.73 History of diabetes mellitus Z86.39 History of hypertension Z86.79 Pain: denies Cognitive Treatment Treatment time: 8514-2474 Subjective: [] Alert [] Cooperative [] Confused [...] x2 verbal repetitions. Organization: State the Category, [place]: Pt provided three items and instructed to state the category. Pt completed activity with 60% (3/5) accuracy independently, increased to 100% (5/5) with mod-max verbal cues and 1-2x verbal repetitions. Add to the Category, [place]: Pt instructed to name three additional items [...] days. Treatment completed by: Frances Schulz M.S. CCC-RN RESEARCH * Spike Worthy, DO - 06/07/2019 8:02 AM EDT Daily Progress Note Neuro Critical Care Patient Name: Eunice Marte Patient : 1955 Room/Bed: [address] [place] [address] CHIEF COMPLAINT: Complaining of left facial droop, left-sided hemiparesis, slurred speech INTERVAL HISTORY: Admission (06/05/2019) Case of a 63 y.o. male patient with PMH of HTN, Diabetes, Stroke (4 years ago) who came to ED at [facility] after having a presentation of acute onset of left- sided weakness that began around 5 PM on June 05, 2019. Patient refers that he was around his house around that area he was feeling weak but then noticed that he was slurring the speech, have a left-sided facial droop, left- sided hemiparesis. At the [facility] NIH was calculated at 8 and decision was to give TPA. Patient was life flighted to [facility] and was given hydralazine to control his [...] 159/79 100 22 (!) 89 % 06/06/19 211 (!) 168/84 101 18 (!) 89 % 06/06/192047 (!) 173/78 105 20 (!) 89 % 06/06/192032 (!) 168/142 110 18 (!) 89 % 06/06/19 2018 (!) 172/83 103 19 92 % 06/06/192002 [...] Risk) RECENT LABS: DATA CBC: Recent Labs 06/05/19205306/06/19 0901 06/07/19 042 WBC 8.0 7.3 7.4 HGB 15.6 16.4 16.7 HCT 47.2 49.9 51.5* PLT 201 221 196 BMP: Recent Labs 06/05/19205306/06/19 0032 06/06/1901 06/07/19 0426 NA 135 -- 137 135 K [...] Neurology Resident PGY-2 Neuro Critical Care Pager [phone] 06/07/2019 8:02 AM Associated attestation - Omer Zambrano MD - 06/07/2019 4:13 PM EDT NCC 63-year-old patient admitted to neuro ICU status post IV TPA administration for acute left hemiparesis Hx of old left cerebral infarction DM, HTN, HLD MRI brain with diffusion restriction, acute stroke in R jeffrey ventricular and BG area CTA showed no acute LVO, multifocal COAL CONVEYOR OPERATOR stenotic area seen Neuro deficits of [...] Ambulation Assistance: Independent Transfer Assistance: Independent Active Accounting Administrative Assistant: Yes Mode of Transportation: Car Occupation: Retired [...] Management Training, Self-Care / ADL, Neuromuscular Re-education [facility] Inpatient Daily Activity Raw Score: 20 (06/06/19 1233) [facility] Inpatient ADL T-Scale Score : 42.03 (06/06/19 1233) ADL Inpatient CMS 0-100% Score: 38.32 (06/06/19 1233) ADL Inpatient CMS G-Code Modifier : CJ (06/06/19 1233) Goals Short term goals Time Frame for [...] 06/06/2019 11:52 AM EDT Physical Therapy Facility/Department: [address] Initial Assessment NAME: Eunice Marte : 1955 Chief Complaint Patient presents with Cerebrovascular Accident The patient is a 63 y.o. male presented with acute onset of L sided weakness... He has had TIAs in the past, and states that this felt somewhat similar. 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 for 2-3 days with dropping of [...] Restraints Initially in place: No AM-PAC Score AM-[facility] Inpatient Mobility Raw Score : 19 (06/06/19 1146) AM-[facility] Inpatient T-Scale Score : 45.44 (06/06/19 1146) Mobility Inpatient CMS 0-100% Score: 41.77 (06/06/19 1146) Mobility Inpatient CMS G-Code Modifier : CK (06/06/19 114) Goals [...] 10:16 AM EDT Speech Language Pathology Facility/Department: [facility] Initial Speech/Language/Cognitive Assessment NAME: Eunice Marte : 1955 ADMISSION DATE: 06/05/2019 ADMITTING DIAGNOSIS: has Stroke determined by clinical assessment ([facility]) on their problem list. Date of Eval: [...] felt somewhat similar. He was brought to [facility] ED where NIH was calculated to be [...] address noted deficits. Education provided. Recommendations: Requires RN RESEARCH Intervention: Yes Duration/Frequency of Treatment: 3-5 x [...] 0911 Minutes 13 Completed by: Erin Andrews, Sanding Machine Operator Clinician Cosigned By: Keysha Urena M.S.CCC/RN RESEARCH 06/06/2019 10:16 AM * Suellen Allen RN [...] Name: Eunice Marte Patient : 1955 Room/Bed: 15/0515-01 CHIEF COMPLAINT: Complaining of left facial droop, left-sided hemiparesis, slurred speech INTERVAL HISTORY: Admission (06/05/2019) Case of a 63 y.o. male patient with PMH of HTN, Diabetes, Stroke (4 years ago) who came to ED at [facility] after having a presentation of acute onset of left- sided weakness that began around 5 PM on June 05, 2019. Patient refers that he was around his house around that area he was feeling weak but then noticed that he was slurring the speech, have a left-sided facial droop, left- sided hemiparesis. At the [facility] NIH was calculated at 8 and decision was to give TPA. Patient was life flighted to [facility] and was given hydralazine to control his [...] Min: 98.1 F (36.7 C) Max: 98.6 F(37 C) BP Range: Systolic (24hrs), Av , [...] Risk) RECENT LABS: DATA CBC: Recent Labs 06/05/19205306/06/19 0901 WBC 8.0 7.3 HGB 15.6 16.4 HCT 47.2 49.9 PLT 201 221 BMP: Recent Labs 06/05/19204906/05/19205306/06/19 0032 06/06/19 0901 NA -- 135 -- 137 K -- [...] Neurology Resident PGY-3 Neuro Critical Care Pager [phone] 06/06/2019 5:57 AM Associated attestation - Omer Zambrano MD - 06/06/2019 5:24 PM EDT Patient admitted overnight, staffed this am. H & P from overnight addended. M Sudheer Zambrano MD * Gonzales Camarena MD - 06/05/2019 8:42 PM EDT [facility] [address] [place] [address] [facility] Flight Physician Pt Name:Eunice Marte Birthdate 1955 Date of evaluation: 06/05/19 PCP: Adilson Salazar MD REASON FOR FLIGHT Patient was transported from [place] to [place] due to stroke. Flight was indicated for further care at [facility] HISTORY OF PRESENT ILLNESS Eunice Marte is a 63 y.o. male who acute onset left-sided upper and lower extremity weakness while walking in his yard. Symptoms occurred at approximately 5 PM this afternoon. Patient's is arrived to [place] emergency department where he was found to [...] warm and dry. No rash noted. JAZMIN Marte is a 63 y.o. presenting with left-sided [...] CRITICAL CARE: None Destination Patient arrived at [facility] in stable condition no significant changes in [...] FoundDocuments on File Type Date Recorded Patient Feed Inspection Supervisor Expl anation Advance Directives and Living Will Power of Transition Program Manager Latest Code Status on File Code Status [...] Contact Diagnoses Stroke determined by clinical assessment ([facility]) Oscar Harp MD [address] [place] [address] [facility] (unrecognized sect ion and content) No Status Records FoundNo Status Records FoundNo Status Records FoundNo Status Records FoundNo Status Records FoundNo Status Records Found INFORMATION SOURCE (unrecogn ized section and content) DATE CREATED AUTHOR 06/19/[address] [facility] DATE CREATED AUTHOR AUTHOR'S ORGANIZ ATION 11/21/2022 [facility] DATE CREATED AUTHOR AUTHOR'S ORGANIZ ATION 03/29/2023 Hans Sexton [facility] DATE CREATED AUTHOR AUTHOR'S ORGANIZ ATION 10/29/2023 [facility] DATE CREATED AUTHOR AUTHOR'S ORGANIZ ATION 12/31/2023 [facility] DATE CREATED AUTHOR AUTHOR'S ORGANIZ ATION 02/15/2024 [facility] Care Team (unrecognized sect ion and content) Team Status: Inactive Member Role Status Dates Adilson Salazar MD Primary Care Provider Active Milvia Palomo MD Attending Provider Active Team Status: Active Member Role Status Dates Adilson Salazar MD Primary Care Provider Active 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 [employer] provides no warranty or guarantee of the accuracy or completeness of information in this document.
--- NOTE | 2024-03-12 22:10 | XR_ITS ---
The [address] [address] Patient Name: EUNICE FREEMAN MRN: [id number] date: 1955 Sex: M Assigned Patient Location: ED.MAIN Current Patient Location: ER Accession/Order Number: [id number] Exam Date: 03/12/2024 22:20 Report Date: 03/12/2024 23:13 At the request of: DASHAWN SAAB Procedure: XR chest 1V XR chest 1V 03/12/2024 9:20 PM CDT: History: Chest pain Comparison: None. Technique: 1 view chest Findings: The cardiomediastinal silhouette is normal. The lungs are clear without infiltrate, effusion, or pneumothorax. The bones are intact. XR/XR chest 1V Impression: No acute cardiopulmonary process. Electronically authenticated by: NANCIE NAQVI Date: 03/12/2024 23:13
--- NOTE | 2024-03-12 22:10 | ECG_ITS ---
The [facility] Test Date: 2024-03-12 Pat Name: EUNICE FREEMAN Department: Room: - Gender: Male Attacher: : 1955 Requested By: KEILA SALAZAR Order Number: [id number] Reading MD: PAPITO PUENTE Measurements Intervals [place] Rate: 67 P: 60 [place]: 206 QRS: 21 QRSD: 80 T: 50 QT: 374 QTc: 390 Interpretive Statements 1100 Sinus rhythm 1570 with occasional ventricular premature complexes Non-Specific T wave inversion in aVL and I, cannot rule out high lateral ischemia Electronically Signed On 03-14-2024 13:18:11 EDT by PAPITO PUENTE
--- NOTE | 2024-03-12 22:10 | ED.CHESTPAI1 ---
HPI - Chest Pain General Chief Complaint: Chest Pain Stated Complaint: chest pain Time Seen by Provider: 03/12/24 22:05 History of Present Illness HPI narrative: 68-year-old male presents to the emergency department for chest pain. It started about an hour and a half ago and is in a small localized area of his chest. It has been intermittent. He describes it as sharp and he does not have other symptoms, specifically no palpitations or shortness of breath or radiation of the pain. No back pain. No trauma or unusual activity or heavy lifting. He was given aspirin and nitroglycerin by the paramedics and now he does not have any pain. He states that he has had a heart attack a few years ago but he never had a heart catheterization. Related Data Home Medications ?Medication ?Instructions ?Recorded ?Confirmed amlodipine 10 mg tablet 10 mg PO DAILY 07/16/23 03/12/24 cholecalciferol (vitamin D3) 50 50 mcg PO DAILY 07/16/23 03/12/24 mcg (2,000 unit) tablet ezetimibe 10 mg tablet 10 mg PO QAM 07/16/23 03/12/24 glipizide 10 mg tablet 10 mg PO BID 07/16/23 03/12/24 lisinopril 20 1 tab PO BID 07/16/23 03/12/24 mg-hydrochlorothiazide 12.5 mg tablet metformin 500 mg tablet,extended 500 mg PO BID 07/16/23 03/12/24 release 24 hr metoprolol succinate 50 mg 50 mg PO QAM 07/16/23 03/12/24 tablet,extended release 24 hr montelukast 10 mg tablet 10 mg PO DAILY 07/16/23 03/12/24 oxybutynin chloride 5 mg 5 mg PO QPM 07/16/23 07/16/23 tablet,extended release 24 hr pioglitazone 30 mg tablet 30 mg PO DAILY 07/16/23 03/12/24 relugolix 120 mg tablet (Orgovyx) 120 mg PO DAILY 07/16/23 03/12/24 rosuvastatin 40 mg tablet 40 mg PO QAM 07/16/23 03/12/24 tamsulosin 0.4 mg capsule 0.4 mg PO DAILY 07/16/23 03/12/24 aspirin 81 mg capsule 81 mg PO DAILY 03/12/24 03/12/24 insulin glargine-yfgn 100 unit/mL unit subcut 03/12/24 (3 mL) subcutaneous pen (Semglee (insulin glargine-yfgn) Pen) Allergies Allergy/AdvReac Type Severity Reaction Status Date / Time Penicillins Allergy Severe Rash Verified 03/12/24 22:12 Review of Systems ROS Narrative A ten point review of systems is negative except as noted above. PFSH [facility] Medical History (Updated 03/13/24 @ 00:59 by Darrion Prado MD) Multi-infarct dementia ?F01.50 - Vascular dementia, unspecified severity, without behavioral disturbance, psychotic disturbance, mood disturbance, and anxiety (ICD-10) Cerebrovascular disease ?I67.9 - Cerebrovascular disease, unspecified (ICD-10) Type 2 diabetes mellitus with hyperglycemia ?E11.65 - Type 2 diabetes mellitus with hyperglycemia (ICD-10) Implantable loop recorder present ?Z95.818 - Presence of other cardiac implants and grafts (ICD-10) Sleep apnea treated with continuous positive airway pressure (CPAP) ?G47.30 - Sleep apnea, unspecified (ICD-10) TIA (transient ischemic attack) ?G45.9 - Transient cerebral ischemic attack, unspecified (ICD-10) High cholesterol ?E78.00 - Pure hypercholesterolemia, unspecified (ICD-10) Diabetes ?E11.9 - Type 2 diabetes mellitus without complications (ICD-10) Hypertension ?I10 - Essential (primary) hypertension (ICD-10) Prostate CA ?C61 - Malignant neoplasm of prostate (ICD-10) Surgical History (Updated 07/16/23 @ 21:27 by Jami Payne RN) History of shoulder surgery ?Z98.890 - Other specified postprocedural states (ICD-10) H/O left knee surgery ?Z98.890 - Other specified postprocedural states (ICD-10) History of back surgery ?Z98.890 - Other specified postprocedural states (ICD-10) Family History (Updated 07/16/23 @ 21:29 by Jami Payne RN) Mother Family history of diabetes mellitus Family history of myocardial infarction Sister Family history of hypertension Social History Highest level of school completed/degree received: decline to answer Do you think of yourself as: decline to answer Gender Identity: decline to answer Exam Narrative Exam Narrative: Nurses note and vital signs reviewed and patient is not hypoxic. General: The patient appears well and in no apparent distress. Patient is resting comfortably on cart. Skin: Warm, dry, no pallor noted. There is no rash noted. Head: Normocephalic, atraumatic Eye: Normal conjunctiva, no drainage Ears, Nose, Mouth, and Throat: oral mucosa is moist. Nares patent. Cardiovascular: Regular Rate and Rhythm Respiratory: Patient is in no distress, no accessory muscle use, lungs are clear to auscultation, no wheezing, rales or rhonchi Back: non-tender GI: Soft and nontender Musculoskeletal: The patient has no evidence of calf tenderness, no pitting edema, symmetrical pulses noted bilaterally Neurological: A&O, normal speech Psychiatric: Cooperative Constitutional Vital Signs, click to edit/add: Last Vital Signs Temp 98.6 F 03/12/24 22:12 Pulse 71 03/13/24 00:30 Resp 19 03/13/24 00:30 BP 130/75 03/13/24 00:01 Pulse Ox 99 03/13/24 00:30 O2 Del Method Room Air 03/12/24 22:12 Course Vital Signs Vital signs: Vital Signs Pulse Rate 70 03/12/24 22:10 Respiratory Rate 20 03/12/24 22:10 Temperature 98.6 F 03/12/24 22:12 Pulse Rate 71 03/13/24 00:30 Respiratory Rate 19 03/13/24 00:30 Blood Pressure 130/75 03/13/24 00:01 Pulse Oximetry 99 03/13/24 00:30 Oxygen Delivery Method Room Air 03/12/24 22:12 MDM - Chest Pain MDM Narrative Medical decision making narrative: Initial troponin is elevated at 104. He has had no further chest pain here in the emergency department. He received aspirin in the prehospital setting and is on a heparin drip here. He is hemodynamically stable. He is requesting transfer to [facility]. I have spoken to Dr. Douglas there who accepts the patient. The patient is agreeable for transfer. Differential Diagnosis Differential diagnosis: Likely pneumothorax, unstable angina pectoris, atypical chest pain, st elevation myocardial infarction and other (NSTEMI) Lab Data Attestation: I reviewed the patient's lab results. Labs: Lab Results 03/12/24 Range/Units 22:15 WBC 6.5 (4.0-11.0) 10^3/uL RBC 4.28 L (4.70-6.10) 10^6/uL Hgb 12.3 L (14.0-18.0) g/dL Hct 37.6 L (42.0-54.0) % MCV 87.9 (80.0-94.0) fL MCH 28.7 (25.9-34.0) pg MCHC 32.7 (29.9-35.2) g/dL RDW 14.5 (11.0-15.0) % Plt Count 224 (150-450) 10^3/uL MPV 11.8 (9.5-13.5) fL Neut % (Auto) 51.6 (43.0-75.0) % Lymph % (Auto) 30.3 (20.5-60.0) % Hill % (Auto) 9.5 (1.7-12.0) % Eos % (Auto) 7.4 H (0.9-7.0) % Baso % (Auto) 0.9 (0.2-2.0) % Neut # (Auto) 3.4 (1.4-6.5) 10^3/uL Lymph # (Auto) 2.0 (1.2-3.8) 10^3/uL Hill # (Auto) 0.6 (0.3-0.8) 10^3/uL Eos # (Auto) 0.5 (0.0-0.7) 10^3/uL Baso # (Auto) 0.1 (0.0-0.1) 10^3/uL Abs Immat Gran (auto) 0.02 (0.00-0.03) 10^3/uL Imm/Tot Granulo (auto) 0.3 (0.0-0.5) % PT 10.8 (9.0-11.6) sec INR 1.02 APTT 27.9 (22.3-36.2) sec Sodium 135 L (136-145) mmol/L Potassium 5.3 H (3.5-5.1) mmol/L Chloride 99 (98-107) mmol/L Carbon Dioxide 32.6 H (21.0-32.0) mmol/L Anion Gap 8.7 BUN 21.0 H (7.0-18.0) mg/dL Creatinine 0.87 (0.70-1.30) mg/dL Est GFR ( Amer) >60 (>=60) Est GFR (Non-Af Amer) >60 (>=60) BUN/Creatinine Ratio 24.1 Glucose 190 H (74-106) mg/dL Calcium 9.2 (8.5-10.1) mg/dL Troponin I High Sens 104.3 H* (4.0-76.1) pg/mL Imaging Data Chest x-ray: Radiologist's impression: ITS Impressions Chest X-Ray 03/12/24 22:10 Impression: No acute cardiopulmonary process. Electronically authenticated by: NANCIE NAQVI Date: 03/12/2024 23:13 ECG Data Attestation: I personally reviewed and interpreted this ECG as follows: (EKG on my interpretation shows normal sinus rhythm without acute change in a single PVC) Heart Score History: Highly Suspicious ECG: Normal Age: >65 years Risk Factors: >3 Risk Factors/ HX of CAD:2 Troponin: <3X Normal Limit Total Heart Score Recommendations & Risks:: 7 Critical Care Time Critical Care Time Critical Care Time: Yes Total Critical Care Time: 35 Attestation: Due to the high probability of sudden and clinically significant deterioration in the patient's condition he/she required the highest level of my preparedness to intervene urgently I provided critical care time including documentation time, medication orders and management, reevaluation, vital sign assessment, ordering and reviewing of lab tests, ordering and reviewing of x-ray studies, and admission orders. Aggregate critical care time is 35 minutes including only time during which I was engaged in work directly related to his/her care and did not include time spent treating other patients simultaneously. Discharge Plan Discharge Chief Complaint: Chest Pain Clinical Impression: Non-ST elevation MN (NSTEMI) Patient Disposition: [facility] Time of Disposition Decision: 00:59 Discharge Location: [facility] Condition: Fair Mode of Transportation: EMS
[2024-03-12 22:25] LABS: Basophils Absolute Auto 0.1 10^3/uL (0.0-0.1); Basophils Percent Auto 0.9 % (0.2-2.0); Eosinophils Absolute Auto 0.5 10^3/uL (0.0-0.7); Eosinophils Percent Auto 7.4 % (0.9-7.0); Hematocrit 37.6 % (42.0-54.0); Hemoglobin 12.3 g/dL (14.0-18.0); Immature Granulocytes Abs Auto 0.02 10^3/uL (0.00-0.03); Immature Granulocytes Pct Auto 0.3 % (0.0-0.5); Lymphocytes Percent Auto 30.3 % (20.5-60.0); Mean Corpuscular HGB Conc 32.7 g/dL (29.9-35.2); Mean Corpuscular Hemoglobin 28.7 pg (25.9-34.0); Mean Corpuscular Volume 87.9 fL (80.0-94.0); Mean Platelet Volume 11.8 fL (9.5-13.5); Monocytes Absolute Auto 0.6 10^3/uL (0.3-0.8); Monocytes Percent Auto 9.5 % (1.7-12.0); Neutrophils Absolute Auto 3.4 10^3/uL (1.4-6.5); Neutrophils Percent Auto 51.6 % (43.0-75.0); Platelet Count 224 10^3/uL (150-450); Red Blood Count 4.28 10^6/uL (4.70-6.10); Red Cell Distribution Width 14.5 % (11.0-15.0); White Blood Count 6.5 10^3/uL (4.0-11.0)
[2024-03-12 22:43] LABS: Anion Gap 8.7; BUN Creatinine Ratio 24.1; Calcium 9.2 mg/dL (8.5-10.1); Carbon Dioxide 32.6 mmol/L (21.0-32.0); Chloride 99 mmol/L (98-107); Estimated GFR (African America >60 (>=60); Estimated GFR (Non-African Ame >60 (>=60); Glucose 190 mg/dL (74-106); Potassium 5.3 mmol/L (3.5-5.1); Sodium 135 mmol/L (136-145)
[2024-03-12 22:49] LABS: Troponin I High Sensitivity 104.3 pg/mL (4.0-76.1)
--- NOTE | 2024-03-12 22:53 | ECG_ITS ---
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
[2024-03-12 23:23] LABS: INR 1.02; Prothrombin Time 10.8 sec (9.0-11.6)
[2024-03-12 23:27] LABS: Partial Thromboplastin Time 27.9 sec (22.3-36.2)
[2024-03-12] MEDS: HEPARIN SODIUM,PORCINE/D5W 25,000 UNIT/500 ML IV.SOLN 20 UNIT IV (23:44)
[2024-03-12] MEDS: HEPARIN SODIUM (PORCINE) 5,000 UNIT/ML VIAL 4000 UNIT IV (23:44)
[2024-03-13] VITALS (26 sets, daily range): BP systolic 130–166; BP diastolic 71–81; PULSE 57–96; O2SAT 98–100
[2024-03-13 01:14] LABS: Troponin I High Sensitivity 106.4 pg/mL (4.0-76.1)
== END 2024-03-13 03:45 | disposition short-term general hospital (02) ==
PROVIDERS: Emergency Provider Emergency Medicine; PCP Family Medicine
DX: I21.4 Non-ST elevation (NSTEMI) myocardial infarction (principal)
CPT/HCPCS: 36415; 71045; 80048; 84484; 85025; 85610; 85730; 93005; 96374; 99285; J1644

== ENCOUNTER 2024-05-09 10:14 | Inpatient (IN) | payer OTHER, MEDICARE, SELFPAY ==
[2024-05-09] VITALS (42 sets, daily range): BP systolic 159–207; BP diastolic 76–103; PULSE 67–92; TEMP 36.8–37.2; O2SAT 90–100; BMI 33.1
--- NOTE | 2024-05-09 10:25 | ECG_ITS ---
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
--- NOTE | 2024-05-09 10:25 | XR_ITS ---
The [address] [address] Patient Name: EUNICE FREEMAN MRN: [id number] date: 1955 Sex: M Assigned Patient Location: ER Current Patient Location: ER Accession/Order Number: [id number] Exam Date: 05/09/2024 10:52 Report Date: 05/09/2024 11:50 At the request of: JAVAN PATEL Procedure: XR chest 1V EXAM: Chest x-ray HISTORY: . sob . COMPARISON: 03/12/2024 TECHNIQUE: Total view of the chest FINDINGS: Heart and vascularity are unremarkable. Lungs are free of focal infiltrates. There is slight elevation of the right hemidiaphragm a compared left. EKG leads overlie the chest. XR/XR chest 1V IMPRESSION: No acute heart or lung disease identified. Electronically authenticated by: ZAYNAB PAUL Date: 05/09/2024 11:50
--- NOTE | 2024-05-09 10:28 | ED_ITS ---
HPI HPI - General Adult General Chief complaint: Shortness of Breath/Dyspnea Stated complaint: COUGH, SOB, CHEST PAIN Time Seen by Provider: 05/09/24 10:16 Source: patient Mode of arrival: walk-in Limitations: no limitations History of Present Illness HPI narrative: Patient presents to ED complaining of shortness of breath. He has had a cough for the past few days and he has been feeling increased shortness of breath. He said the cough is productive of thick sputum. He has had fevers at home the past couple of days. He reports of history of a couple of heart attacks but no stents put in. He reports generalized abdominal soreness but thinks it is from coughing so much. He also complains of chest pain and soreness but again thinks it is from coughing so much recently. He does have wheezing on exam. He is hypertensive and tachypneic. Temp 99.0 here in ED. Family denies any sick contacts, at bedside and she has not been sick with anything recently. Related Data Home Medications ?Medication ?Instructions ?Recorded ?Confirmed amlodipine 10 mg tablet 10 mg PO DAILY 07/16/23 05/09/24 cholecalciferol (vitamin D3) 50 50 mcg PO DAILY 07/16/23 05/09/24 mcg (2,000 unit) tablet ezetimibe 10 mg tablet 10 mg PO QAM 07/16/23 05/09/24 glipizide 10 mg tablet 10 mg PO BID 07/16/23 05/09/24 lisinopril 20 1 tab PO BID 07/16/23 05/09/24 mg-hydrochlorothiazide 12.5 mg tablet metformin 500 mg tablet,extended 500 mg PO BID 07/16/23 05/09/24 release 24 hr metoprolol succinate 50 mg 50 mg PO QAM 07/16/23 05/09/24 tablet,extended release 24 hr montelukast 10 mg tablet 10 mg PO .QHS 07/16/23 05/09/24 pioglitazone 30 mg tablet 30 mg PO DAILY 07/16/23 05/09/24 tamsulosin 0.4 mg capsule 0.4 mg PO DAILY 07/16/23 05/09/24 aspirin 81 mg capsule 81 mg PO DAILY 03/12/24 05/09/24 insulin glargine-yfgn 100 unit/mL 40 unit subcut .QHS 03/12/24 05/09/24 (3 mL) subcutaneous pen (Semglee (insulin glargine-yfgn) Pen) Allergies Allergy/AdvReac Type Severity Reaction Status Date / Time Penicillins Allergy Severe Rash Verified 03/12/24 22:12 Opioid HPI Opioid Management Most Recent Opioid Data: Last Pain Scale 7 05/09/24 10:58 Last MAR Pain Assessment 05/09/24 10:58 Review of Systems ROS Status of ROS 10 or more systems reviewed and unremark able except as noted in history and below [facility] Medical History (Updated 05/09/24 @ 13:49 by Tracey Kamara DO) Multi-infarct dementia ?F01.50 - Vascular dementia, unspecified severity, without behavioral disturbance, psychotic disturbance, mood disturbance, and anxiety (ICD-10) Cerebrovascular disease ?I67.9 - Cerebrovascular disease, unspecified (ICD-10) Type 2 diabetes mellitus with hyperglycemia ?E11.65 - Type 2 diabetes mellitus with hyperglycemia (ICD-10) Implantable loop recorder present ?Z95.818 - Presence of other cardiac implants and grafts (ICD-10) Sleep apnea treated with continuous positive airway pressure (CPAP) ?G47.30 - Sleep apnea, unspecified (ICD-10) TIA (transient ischemic attack) ?G45.9 - Transient cerebral ischemic attack, unspecified (ICD-10) High cholesterol ?E78.00 - Pure hypercholesterolemia, unspecified (ICD-10) Diabetes ?E11.9 - Type 2 diabetes mellitus without complications (ICD-10) Hypertension ?I10 - Essential (primary) hypertension (ICD-10) Prostate CA ?C61 - Malignant neoplasm of prostate (ICD-10) Surgical History History of shoulder surgery ?Z98.890 - Other specified postprocedural states (ICD-10) H/O left knee surgery ?Z98.890 - Other specified postprocedural states (ICD-10) History of back surgery ?Z98.890 - Other specified postprocedural states (ICD-10) Family History Mother Family history of diabetes mellitus Family history of myocardial infarction Sister Family history of hypertension Social History Highest level of school completed/degree received: decline to answer Little interest or pleasure in doing things: not at all Feeling down, depressed, or hopeless: not at all Do you think of yourself as: decline to answer Gender Identity: decline to answer Exam Narrative Exam Narrative: Time Seen: [] Vital Signs: [Per nurse's notes.] General: [Alert], Febrile Skin: [Warm, dry, no rash.] Head: [Normocephalic, atraumatic.] Neck: [Supple, trachea midline.] Eye: [Pupils are equal, round and reactive to light, extraocular movements are intact, normal conjunctiva.] Ears, nose, mouth and throat: oral mucosa moist. Cardiovascular: [Regular rate and rhythm, no murmur.] Respiratory: [Very mild respiratory distress, inspiratory expiratory wheezing bilateral lungs anteriorly and posteriorly Chest wall: [No tenderness, no deformity.] Gastrointestinal: [Soft, Generalized soreness per patient, non distended, normal bowel sounds.] MSK: 5 out of 5 muscle strength x 4 extremities no calf pain or edema Lymphatics: [No lymphadenopathy.] Psychiatric: [Cooperative, appropriate mood & affect.] Neurological: [Alert and oriented to person, place, time, and situation, no focal neurological deficit observed.] Constitutional Vital Signs, click to edit/add: Last Vital Signs Temp 99.0 F 05/09/24 10:19 Pulse 76 05/09/24 12:00 Resp 20 05/09/24 12:00 BP 186/88 H 05/09/24 10:19 Pulse Ox 97 05/09/24 12:00 O2 Del Method Room Air 05/09/24 10:19 Course Vital Signs Vital signs: Vital Signs Temperature 99.0 F 05/09/24 10:19 Pulse Rate 92 H 05/09/24 10:19 Respiratory Rate 24 H 05/09/24 10:19 Blood Pressure 186/88 H 05/09/24 10:19 Pulse Oximetry 97 05/09/24 10:19 Oxygen Delivery Method Room Air 05/09/24 10:19 Temperature 99.0 F 05/09/24 10:19 Pulse Rate 76 05/09/24 12:00 Respiratory Rate 20 05/09/24 12:00 Blood Pressure 186/88 H 05/09/24 10:19 Pulse Oximetry 97 05/09/24 12:00 Oxygen Delivery Method Room Air 05/09/24 10:19 Medical Decision Making MDM Narrative Medical decision making narrative: Patient's labs revealed an elevated troponin. He questionable pneumonia on the chest x-ray. He complained of shortness of breath as well so I did a CT angio to rule out PE however we did find a small subsegmental PE on the right lower lobe. He also does have confirmed pneumonia on the right lower lobe. Patient feels like his chest pain is due to his coughing and he does not have any card iac pain per patient. I spoke to Dr. Marquez and she is comfortable with admitting the patient here. Patient will be admitted to med/tele. Antibiotics were started in ED. Dr. Marquez states that she will take care of the anticoagulation for the PE. Patient and family are comfortable with care plan for admission to the hospital Differential Diagnosis Differential Diagnosis: Pneumonia, MO, NSTEMI, PE, upper respiratory infection Medical Records Medical records reviewed: Yes I reviewed the patient's medical records Lab Data Lab results reviewed: Yes I reviewed the patient's lab results Labs: Lab Results 05/09/24 05/09/24 Range/Units 10:30 10:35 WBC 8.3 (4.0-11.0) 10^3/uL RBC 4.63 L (4.70-6.10) 10^6/uL Hgb 13.2 L (14.0-18.0) g/dL Hct 39.9 L (42.0-54.0) % MCV 86.2 (80.0-94.0) fL MCH 28.5 (25.9-34.0) pg MCHC 33.1 (29.9-35.2) g/dL RDW 14.8 (11.0-15.0) % Plt Count 179 (150-450) 10^3/uL MPV 11.0 (9.5-13.5) fL Neut % (Auto) 74.4 (43.0-75.0) % Lymph % (Auto) 13.9 L (20.5-60.0) % [place] % (Auto) 6.7 (1.7-12.0) % Eos % (Auto) 4.4 (0.9-7.0) % Baso % (Auto) 0.4 (0.2-2.0) % Neut # (Auto) 6.2 (1.4-6.5) 10^3/uL Lymph # (Auto) 1.2 (1.2-3.8) 10^3/uL [place] # (Auto) 0.6 (0.3-0.8) 10^3/uL Eos # (Auto) 0.4 (0.0-0.7) 10^3/uL Baso # (Auto) 0.0 (0.0-0.1) 10^3/uL Abs Immat Gran (auto) 0.02 (0.00-0.03) 10^3/uL Imm/Tot Granulo (auto) 0.2 (0.0-0.5) % Sodium 140 (136-145) mmol/L Potassium 3.6 (3.5-5.1) mmol/L Chloride 103 (98-107) mmol/L Carbon Dioxide 26.8 (21.0-32.0) mmol/L Anion Gap 13.8 BUN 8.0 (7.0-18.0) mg/dL Creatinine 1.00 (0.70-1.30) mg/dL Est GFR ( Amer) >60 (>=60) Est GFR (Non-Af Amer) >60 (>=60) BUN/Creatinine Ratio 8.0 Glucose 223 H (74-106) mg/dL Lactate 1.5 (0.4-2.0) mmol/L Calcium 9.3 (8.5-10.1) mg/dL Total Bilirubin 1.0 (0.2-1.0) mg/dL AST 32 (15-37) U/L ALT 53 (16-63) U/L Alkaline Phosphatase 118 H (46-116) U/L Troponin I High Sens 338.3 H* (4.0-76.1) pg/mL NT-Pro-B Natriuret Pep 520.0 (<=900.0) pg/mL Total Protein 7.6 (6.4-8.2) g/dL Albumin 3.6 (3.4-5.0) g/dL Globulin 4.0 g/dL Albumin/Globulin Ratio 0.9 Influenza Type A Ag Negative Influenza Type B Ag Negative SARS-CoV-2 Ag (CV2AG) Negative (NEGATIVE) Imaging Data Chest x-ray: Radiologist's impression: ITS Impressions Chest X-Ray 05/09/24 10:25 IMPRESSION: No acute heart or lung disease identified. Electronically authenticated by: ZAYNAB PAUL Date: 05/09/2024 11:50 Chest CTA 05/09/24 11:53 IMPRESSION: 1. Segmental right lower lobe pulmonary embolism. 2. Small region of consolidation within the right lower lobe concerning for pneumonia. The results of study were discussed with Dr. Kamara at 1245 on 05/09/2024. Electronically authenticated by: EUNICE CASTRO Date: 05/09/2024 12:45 ECG Data Attestation: I personally reviewed and interpreted this ECG as follows: Interpretation: EKG INTERPRETATION Time: []1030 Rate: []88 Rhythm: _ []Normal sinus rhythm ST segments: _ []No acute ST elevation or depression T waves: _ [] Ectopy: _ [] P wave/GA interval: _ [] QRS interval: _ [] QT interval: _ [] Comparison: _ [] Comparison EKG date: [] Performed by: [self] Critical Care Time Critical Care Time Critical Care Time: Yes Total Critical Care Time: 58 Attestation: Shortness of breath, PE, pneumonia, sepsis Discharge Plan Discharge Chief Complaint: Shortness of Breath/Dyspnea Clinical Impression: Acute pulmonary embolism Qualifiers: Pulmonary embolism type: other Acute cor pulmonale presence: without acute cor pulmonale Qualified Code(s): I26.99 - Other pulmonary embolism without acute cor pulmonale Right lower lobe pneumonia Qualifiers: Pneumonia type: due to unspecified organism Qualified Code(s): J18.9 - Pneumonia, unspecified organism Patient Disposition: Admitted As Inpatient Time of Disposition Decision: 13:49 Condition: Fair Prescriptions / Home Meds: No Action insulin glargine-yfgn [Semglee(insulin glarg-yfgn)Pen] 100 unit/mL (3 mL) insulin pen 40 unit SUBCUT .QHS aspirin 81 mg capsule 81 mg PO DAILY amlodipine 10 mg tablet 10 mg PO DAILY cholecalciferol (vitamin D3) 50 mcg (2,000 unit) tablet 50 mcg PO DAILY ezetimibe 10 mg tablet 10 mg PO QAM glipizide 10 mg tablet 10 mg PO BID lisinopril-hydrochlorothiazide 20-12.5 mg tablet 1 tab PO BID metformin 500 mg tablet extended release 24 hr 500 mg PO BID metoprolol succinate 50 mg tablet extended release 24 hr 50 mg PO QAM montelukast 10 mg tablet 10 mg PO .QHS pioglitazone 30 mg tablet 30 mg PO DAILY tamsulosin 0.4 mg capsule 0.4 mg PO DAILY Print Language: Maori Referrals: Adilson Luu MD [Primary Care Provider] - 1 week
--- OUTSIDE RECORDS SUMMARY | 2024-05-09 10:50 | XMS_ITS | CCD ---
Author Organization [facility] ion [facility] Care Team Providers Care Vending Technician Name Role Phone Adilson Salazar Primary Care Provider OSCAR HARP Admitting Unavailable JAVIER POSADAS Consulting Unavailable OMER ZAMBRANO Attending Unavailable APRILEREADILSON Alcantara Primary Care Unavailabl JAMILA Bliss Consulting Unavailable ADILSON SALAZAR Primary Care Physician MD Adilson Salazar Primary Care Provider MD Milvia Palomo Attending Provider MD Adilson Salazar Primary Care Provider MD Milvia Palomo Attending Provider MARIE, DR ADILSON Johnson Admitting Unavailable NADERER, DR ADILSON Johnson Attending Unavailable NADERER, DR ADILSON Johnson Primary Care Unavailable NADERER, DR ADILSON Johnson Consulting Unavailable NADERER, DR ADILSON Johnson Admitting Unavailable NADERER, DR ADILSON Johnson Attending Unavailable NADERER, DR ADILSON Johnson Primary Care Unavailable ZIEBKALPANA, DR SUELLEN Alcantara Consulting Unavailable NADERER, DR [...] Unavailable NILL ., DR ACEVEDO Consulting Unavailable MILVIA PALOMO Admitting Unavailable LUJosiah, MILVIA Powers Attending Unavailable NADEREQuinton, DR ADILSON Johnson Primary Care Unavailable MILVIA PALOMO Consulting Unavailable NADERER, DR ADILSON Johnson Primary [...] Care Provider Adilson Salazar Primary Care Unavailable Sonya, Norleena R Admitting Unavailable Sonya, Norlevinicius R Attending Unavailable Lue, Milvia M Referring Unavailable NADERER, ADILSON Attending Unavailable NADERER, ADILSON Attending Unavailable NADERER, ADILSON Attending Unavailable NADERER, ADILSON Attending Unavailable NADERER, ADILSON Attending Unavailable ANNA, YEYO Attending Unavailable PUJA MONTES DE OCA Admitting Unavailable KATKODASHAWN Referring Unavailable LINDA, FIRAS Referring Unavailable HADZIAHMETOVIC, SILVANO Attending Unavaila ble LINDA, FIRAS Referring Unavailable LINDA, FIRAS Referring Unavailable LINDA, FIRAS Referring Unavailable LINDA, FIRAS Referring Unavailable LINDA, FIRAS Referring Unavailable LINDA, FIRAS Referring Unavailable HADZIAHMETOVIC, SILVANO Attending Unavaila ble HADZIAHMETOVIC, MERSIHA Attending Unavaila ble LINDA, FIRAS Referring Unavailable LINDA, FIRAS Referring Unavailable LINDA, FIRAS Referring Unavailable LINDA, FIRAS Referring Unavailable LINDA, FIRAS Referring Unavailable LINDA, FIRAS Referring Unavailable LINDA, FIRAS Referring Unavailable LINDA, FIRAS Referring Unavailable HADZIAHMETOVIC, MERSIHA Attending Unavaila ble LINDA, FIRAS Referring Unavailable LINDA, FIRAS Referring Unavailable BILLY, VIVIAN Attending Unavailable LINDA, FIRAS Attending Unavailable LINDA, FIRAS Attending Unavailable LINDA, FIRAS Referring Unavailable LINDA, FIRAS Attending Unavailable DUKE, JONATHAN Referring Unavailable DUKE, JONATHAN Referring Unavailable LINDA, FIRAS Referring Unavailable HADZIAHMETOVIC, MERSIHA Referring Unavaila ble LINDA, FIRAS Referring Unavailable HADZIAHMETOVIC, MERSIHA Attending Unavaila ble LINDA, FIRAS Referring Unavailable LINDA, FIRAS Referring Unavailable LINDA, FIRAS Referring Unavailable HADZIAHMETOVIC, MERSIHA Attending Unavaila ble LINDA, FIRAS Referring Unavailable LINDA, FIRAS Referring Unavailable LINDA, FIRAS Referring Unavailable LINDA, FIRAS Referring Unavailable LINDA, FIRAS Referring Unavailable HADZIAHMETOVIC, MERSIHA Attending Unavaila ble LINDA, FIRAS Referring Unavailable HADZIAHMETOVIC, MERSIHA Attending Unavaila ble LINDA, FIRAS Referring Unavailable LINDA, FIRAS Referring Unavailable ZENZ, CUCA Referring Unavailable LINDA, FIRAS Referring Unavailable LINDA, FIRAS Referring Unavailable LINDA, FIRAS Referring Unavailable LINDA, FIRAS Referring Unavailable LINDA, FIRAS Referring Unavailable LINDA, FIRAS Referring Unavailable Allergies Allergy Classification Reported Allergen(s) Allergy Type Date of Onset Reaction(s) Facility (16 sources) Labetalol; 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: [labetalol] Drug Allergy 0 Unknown (origin) (qualifier value) [facility] (14 sources) Penicillin; 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: [penicillin] Drug Allergy 7 Unknown [facility] (6 sources) Penicillins; 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: [Penicillins] Allergy to substance 4 [facility] (1 source) Labetalol Drug Allergy The [facility] (1 source) Labetalol Drug Allergy 1 [facility] Repository Medications Current Medications Medication Drug Class(es) [...] oral tablet (16 sources) Dihydropyridine Calcium Channel Anders Start: 08-12-2020 take 1 tablet by mouth [...] hyperglycemia, with long-term current use of insulin ([facility]) 1 each in the morning and 1 [...] extended release oral tablet (4 sources) beta-Adrenergic Anders Start: 09-10-2023 take 1 tablet by mouth [...] Daily, # 30 tab(s), Refills(s) 6, Pharmacy: [id number], 183, cm, 04/21/22 11:40:00 EDT, [...] 0.4 mg oral capsule (14 sources) alpha-Adrenergic Anders Start: 09-18-2023 take 1 capsule by mouth [...] Start: 06-11-2022 triamcinolone Top 0.5% Crm 1 zach, Topical, TID Other (see comment), Refill(s) 0 Start Date: 06/11/22 Status: Ordered triamcinolone (K enalog) 0.5 % cream Apply 1 application topically in the morning and 1 application in the evening and 1 application before bedtime. 0 Active Completed/Discontinued Medications Medication Drug Class(es) Dates Sig (Normalized) Sig (Original) 100 ml clevidipine 0.5 mg/ml injection (1 source) Dihydropyridine Calcium Channel Anders Start: 06-05-2019 End: 06-08-2019 clevidipine (CLEVIPREX) infusion [...] pain] Onset: 2 Episodic Acute cerebrovascular disease (16 sources) Cerebrovascular accident; 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: [Cerebral infarction, unspecified] Onset: 9 06-06-2019 Chronic Acute myocardial infarction (2 sources) Non-ST elevation (NSTEMI) myocardial infarction; 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: [Non-ST elevation (NSTEMI) myocardial infarction] Onset: 4 Chronic Allergic reactions (12 sources) Vesicular eczema; [...] 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: [Chronic systolic (congestive) heart failure] Onset: 4 Chronic Coronary atherosclerosis and other heart disease (2 sources) Atherosclerotic heart disease of [place] coronary artery without angina pectoris; 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: [Atherosclerotic heart disease of [place] coronary artery without angina pectoris] Onset: 4 Chronic Delirium, dementia, and amnestic and other cognitive disorders (3 sources) Vascular dementia without behavioral disturbance; 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: [Multi-infarct dementia, uncomplicated] Onset: 3 08-05-2023 Chronic Diabetes mellitus with complications (5 sources) Type 2 diabetes mellitus with diabetic chronic kidney disease; 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: [Type 2 diabetes mellitus with hyperglycemia] Onset: 2 08-05-2023 Chronic Diabetes mellitus without complication (15 sources) Diabetes mellitus; 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: [Type 2 diabetes mellitus without complications] Onset: 3 06-25-2021 Chronic Diseases of white blood cells (10 sources) Eosinophil count raised 06-11-2022 Chronic Disorders of lipid metabolism (17 sources) Hyperlipidemia; 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: [Hyperlipidemia, unspecified] Onset: 2 [...] pedis; 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: [TINEA PEDIS] Onset: 3 Episodic Nonspecific chest pain (2 sources) Chest pain, unspecified; 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: [Chest pain, unspecified] Onset: 4 Episodic Nutritional deficiencies (13 sources) Vitamin D deficiency; 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: [Vitamin D deficiency, unspecified] Onset: 2 06-11-2022 Chronic Other aftercare (1 source) Other mcc (current) drug therapy; 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: [OTH BRAND MARKETING INTERN CURRENT DRUG THERAPY] Onset: 3 Episodic Other aftercare (3 sources) 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; 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: [BRAND MARKETING INTERN CURRENT USE OF INSULIN] Onset: 3 Episodic Other aftercare (1 source) 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 of oral hypoglycemic drugs; 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: [ASSISTED USE ORAL HYPOGLYCEMIC DX] Onset: 3 Episodic Other aftercare (1 source) retirement (current) use of aspirin; 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: [BRAND MARKETING INTERN CURRENT USE OF ASPIRIN] Onset: 3 Episodic [...] Onset: 3 06-11-2022 Chronic Residual codes; unclassified (3 sources) Obstructive sleep apnea (adult) (pediatric); 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: [OBSTRUCTIVE [...] source) Dehydration; 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: [DEHYDRATION] Onset: 06-09-2022 Episodic Other aftercare (2 sources) 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 of other agents affecting estrogen receptors and estrogen levels; 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: [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 of other agents affecting estrogen receptors and estrogen levels] Onset: 05-25-2023 Episodic Other circulatory disease (1 source) Personal history of transient ischemic attack (TIA), and cerebral infarction without residual deficits; 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: [PERS HX TIA AND CI NO RESID DEFICIT] Onset: 07-29-2022 Episodic Other screening for suspected conditions (not [...] Test Name Value Interpretation Reference Range Facility Orders Onlyon 04-25-2024 Orders Only [id number] Eunice Marte 1955 M Date Provider Department Center 04/25/2024 Sophia-ROSEMARY [facility] INT MED Comprehensiv Family History Problem Relation Age of Onset Heart disease Mother 58 Heart disease Maternal Grandmother Comments: heart trouble Heart disease Maternal Grandfather Comments: heart trouble Family Status - Relation Status Age at Mother Father Mother's Sister Mother's Brother Father's Sister Father's Brother Maternal Grandmother Maternal Grandfather Paternal Grandmother Paternal Grandfather Other Normal [facility] Documentationon 04-17-2024 Documentation [id number] Eunice Marte 1955 M Date Provider Department Center 04/17/2024 REDDY IRVIN None Family History Problem Relation Age of Onset Heart disease Mother 58 Heart disease Maternal Grandmother Comments: heart trouble Heart disease Maternal Grandfather Comments: heart trouble Family Status - Relation Status Age at Mother Father Mother's Sister Mother's Brother Father's Sister Father's Brother Maternal Grandmother Maternal Grandfather Paternal Grandmother Paternal Grandfather Other Reason for Visit and Comments: Specialty Phamracy Note: Repatha [Other] Normal [facility] Documentation [id number] Eunice Marte 1955 M Date Provider Department Center 04/17/2024 IRASEMA ALLRED [facility] Family History Problem Relation Age of Onset Heart disease Mother 58 Heart disease Maternal Grandmother Comments: heart trouble Heart disease Maternal Grandfather Comments: heart trouble Family Status - Relation Status Age at Mother Father Mother's Sister Mother's Brother Father's Sister Father's Brother Maternal Grandmother Maternal Grandfather Paternal Grandmother Paternal Grandfather Other Reason for Visit and Comments: [id number] [Other] Normal [facility] Orders Onlyon 04-16-2024 Orders Only [id number] Eunice Marte 1955 Date Provider Department Center 04/16/2024VIVIAN ALEXANDER HVC CARD [facility] Family History Problem Relation Age of Onset Heart disease Mother 58 Heart disease Maternal Grandmother Comments: heart trouble Heart disease Maternal Grandfather Comments: heart trouble Family Status - Relation Status Age at Mother Father Mother's Sister Mother's Brother Father's Sister Father's Brother Maternal Grandmother Maternal Grandfather Paternal Grandmother Paternal Grandfather Other Normal [facility] Follow-Upon 04-10-2024 Follow-Up [id number] Eunice Marte 1955 M Date Provider Department Center 04/10/2024 VIVIAN [facility] [place] [facility] Family History Problem Relation Age of Onset Heart disease Mother 58 Heart disease Maternal Grandmother Comments: heart trouble Heart disease Maternal Grandfather Comments: heart trouble Family Status - Relation Status Age at Mother Father Mother's Sister Mother's Brother Father's Sister Father's Brother Maternal Grandmother Maternal Grandfather Paternal Grandmother Paternal Grandfather Other Level of Service:87587 CA OFFICE/OUTPATIENT ESTABLISHED MOD MDM 30 MIN Normal [facility] 36on 03-16-2024 36 Post Discharge Call Good morning, I am Rani Tovar, RN a lead nurse from [facility]. I am calling you to follow up on your stay with us and make sure all of your questions have been answered. You will be receiving a survey either electronic or via mail and we always aim to receive 9???s and 10???s. If there is any reason you feel as though you cannot give us these scores please indicate that now. 1. How have you been feeling since being discharged from the hospital? I am doing fine. 2. Did you understand your discharge instructions when they were given to prior to leaving? Yes Were you given an opportunity to ask questions? Yes 3. While a patient in the hospital, was your call light answered in a timely manner? Yes 4. Do have access to all medications that were prescribed to you at discharge? Yes 5. How would you rate your overall stay on a scale of 0-10, 10 being the best experience you have ever had. 8 6. Do you have any further questions you would like to discuss? No Patient Name Eunice Marte Date 03/16/24 Normal [facility] Telephoneon 03-16-2024 Telephone [id number] Eunice Marte 1955 M Date Provider Department Center 03/16/2024 RANI CHAN [facility] Medical C Family History Problem Relation Age of Onset Heart disease Mother 58 Heart disease Maternal Grandmother Comments: heart trouble Heart disease Maternal Grandfather Comments: heart trouble Family Status - Relation Status Age at Mother Father Mother's Sister Mother's Brother Father's Sister Father's Brother Maternal Grandmother Maternal Grandfather Paternal Grandmother Paternal Grandfather Other Normal [facility] 30on 03-14-2024 30 Daily Case Managemen t Update Multidisciplinary rounds have been completed. Barriers to Discharge: Pending clinical course and improvement in clinical condition. Patient undergoing cardiac catheterization today per Cardiology. Discharge plan is home when medically ready. Diet: Dietary Orders (From admission, onward) Start Ordered 03/14/24 0001 Diet NPO Diet effective midnight Comments: Sips with medications Question: Reason for NPO: Answer: Operation/Procedure 03/13/24 1609 03/13/24 1338 Special Kitchen Request Once Comments: Egg salad sandwich on white bread, teriyaki salmon, grape juice, sugar free ice cream. 03/13/24 1338 Physician Expected Discharge Date: 03/15/2024 Discharge Delays: PT Six Click Score: 23 OT Six Click Score: PT Recommendations: OT Recommendations: New Consults: Normal [facility] APOLIPOPROTEIN B-100on 03-14 Magnesium [Mass/Vol] 85 mg/dL Normal 66-133 [facility] Comment on above: Result Comment: REFE RENCE INTERVAL: Apolipoprotein B A desirable fasting serum Apo B concentration for the prevention of atherosclerotic cardiovascular disease in adults is less than 90 mg/dL. A fasting serum Apo B concentration of 130 mg/dL or greater corresponds to a LDL cholesterol concentration greater than 160 mg/dL and constitutes a risk enhancing factor for atherosclerotic cardiovascular disease in adults. Performed By: [facility] [address] [place] [id number] Crm Solution Architect: Sylvester Damian MD, PhD CLIA Number: [id number] Performed By: #### L [id number] #### [facility] (BEAKER) [address] [place] [address] CBCon 03-14-2024 Erythrocyte distribution width (RBC) [Ratio] 14.5 % Normal 11.5-15.0 [facility] Comment on above: Performed By: #### L [id number] ####[facility] (BEAKER)[address] [place] [address] ERYTHROCYTE MEAN CORPUSCULAR HEMOGLOBIN CONCENTRATION (G/DL) BY AUTOMATED 32.8 g/dL Normal 32.0-35.0 [facility] Comment on above: Performed By: #### L [id number] ####[facility] [place] [address] Hematocrit (Bld) [Volume fraction] 35.4 % Low 39.0-55.0 [facility] Comment on above: Performed By: #### L [id number] ####[facility] ([facility] [place] [address] Hemoglobin (Bld) [Mass/Vol] 11.6 g/dL Low 13.0-17.0 [facility] Comment on above: Performed By: #### L [id number] ####[facility] ([facility] [place] [address] MCH (RBC) [Entitic mass] 28.5 pg Normal 27.0-33.0 [facility] Comment on above: Performed By: #### L [id number] ####[facility] ([facility] [place] [address] MCV (RBC) [Entitic vol] 87.0 fL Normal 82.0-98.0 [facility] Comment on above: Performed By: #### L [id number] ####[facility] ([facility] [place] [address] PLATELETS (10*3/UL) IN BLOOD AUTOMATED COUNT 164 10*3/uL Normal 150-400 [facility] Comment on above: Performed By: #### L [id number] ####[facility] ([facility] [place] [address] RBC (Bld) [#/Vol] 4.07 10*6/uL Low 4.20-5.70 [facility] Comment on above: Performed By: #### L [id number] ####[facility] ([facility] [place] [address] WBC (Bld) [#/Vol] 5.46 10*3/uL Normal 4.00-10.60 [facility] Comment on above: Performed By: #### L [id number] ####[facility] ([facility] [facility] [address] HEMOGLOBIN A1Con 03-14-2024 Glucose [Mass/Vol] 183 mg/dL Normal [facility] Comment on above: Performed By: #### L [id number] ####[facility] ([facility] [facility] [address] HbA1c (Bld) [Mass fraction] 8.0 % High 4.0-6.0 [facility] Comment on above: Performed By: #### L [id number] ####[facility] ([facility] [facility] [address] HPon 03-14-2024 HP H&P reviewed. The patient was examined and there are no changes to the H&P. Patient is a 68 yo male patient with a PMH of CVA, CKD presenting for unstable angina. Lexiscan Myocardial Perfusion Stress Test is positive for reversible filling defect at the anterior and apical sections. Patient will undergo diagnostic CORS. Normal [facility] LIPID PANELon 03-14-2024 CHOL/HDL 3.4 mg/dL Normal [facility] Comment on above: Performed By: #### L [id number] #### [facility] ([facility] [address] [place] [address] Cholesterol [Mass/Vol] 126 mg/dL Normal 120-200 [facility] Comment on above: Performed By: #### L [id number] #### [facility] ([facility] [address] [place] [address] Magnesium [Mass/Vol] 124 mg/dL Normal 40-149 [facility] Comment on above: Result Comment: TRIG LYCERIDE REFERENCE RANGE: 20 YEARS AND OLDER CARDIOVASCULAR RISK LESS THAN 150 mg/dL LOW RISK 150 TO 199 mg/dL BORDERLINE RISK 200 mg/dL AND GREATER HIGH RISK Performed By: #### L [id number] #### [facility] ([facility] [address] [place] [address] Magnesium [Mass/Vol] 64 mg/dL Normal 0-160 [facility] Comment on above: Performed By: #### L [id number] #### [facility] ([facility] [address] [place] [address] Magnesium [Mass/Vol] 37 mg/dL Normal 23-92 [facility] Comment on above: Performed By: #### L [id number] #### [facility] ([facility] [address] [place] [address] NON HDL CHOL. (LDL+VLDL) 89 Normal [facility] Comment on above: Performed By: #### L [id number] #### [facility] ([facility] [address] [place] [address] TOTAL VLDL-C 25 mg/dL Normal 0-40 [facility] Comment on above: Performed By: #### L [id number] #### [facility] ([facility] [address] [place] [address] LIPOPROTEIN A (LPA)on 2023 Magnesium [Mass/Vol] 198 mg/dL High <=29 [facility] Comment on above: Result Comment: Perf ormed By: [facility] [address] [place] [address] Crm Solution Architect: Sylvester Damian MD, PhD CLIA Number: [id number] Performed By: #### L [id number] #### [facility] ([facility] [address] [place] [address] POCT GLUCOSE METER UNSOLICIT ED RESULTSon 03-14-2024 Glucose [Mass/Vol] 149 mg/dL High 70-105 [facility] Comment on above: Order Comment: Waive d Testing in the ED is performed under the ED CLIA certificate #[id number]. Result Comment: [email or web address] Performed By: #### L [id number] ####[facility] ([facility] [place] [address] Glucose [Mass/Vol] 144 mg/dL High 70-105 [facility] Comment on above: Order Comment: Waive d Testing in the ED is performed under the ED CLIA certificate #[id number]. Result Comment: [email or web address] Performed By: #### L [id number] #### [facility] (HYUN) [address] [place] [address] 30on 03-13-2024 30 The patient is Moderately Stable - Low risk of patient condition declining or worsening The patient's goals for the shift include no cp The clinical goals for the shift include VSS Problem: Pain - Adult Goal: Verbalizes/displays adequate comfort level or baseline comfort level Outcome: Progressing Flowsheets (Taken 03/13/20242334) Verbalizes/displays adequate comfort level or baseline comfort level: Encourage patient to monitor pain and request assistance Administer analgesics based on type and severity of pain and evaluate response Consider cultural and social influences on pain and pain management Assess pain using appropriate pain scale Implement non-pharmacological measures as appropriate and evaluate response Notify Licensed Independent Practitioner if interventions unsuccessful or patient reports new pain Problem: Safety - Adult Goal: Free from fall injury Outcome: Progressing Flowsheets (Taken 03/13/20242334) Free from fall injury: Assess patient frequently for physical needs [place] fall precautions as indicated by assessment Instruct patient to call for assistance with activity based on assessment Consider OT/PT consult to assist with strengthening/mobilit y Identify cognitive and physical deficits and behaviors that affect risk of falls Educate patient/family on patient safety, including physical limitations Modify environment to reduce risk of injury Problem: Discharge Planning Goal: Discharge to home or other facility with appropriate resources Outcome: Progressing Flowsheets (Taken 03/13/20242334) Discharge to home or other facility with appropriate resources: Identify barriers to discharge with patient and caregiver Identify discharge learning needs (meds, wound care, etc) Refer to discharge planning if patient needs post-hospital services based on physician order or complex needs related to functional status, cognitive ability or social support system Arrange for needed discharge resources and transportation as appropriate Arrange for interpreters to assist at discharge as needed Problem: Chronic Conditions and Co-morbidities Goal: Patient's chronic conditions and co-morbidity symptoms are monitored and maintained or improved Outcome: Progressing Flowsheets (Taken 03/13/20242334) Care Plan - Patient's Chronic Conditions and Co-Morbidity Symptoms are Monitored and Maintained or Improved: Monitor and assess patient's chronic conditions and comorbid symptoms for stability, deterioration, or improvement Collaborate with multidisciplinary team to address chronic and comorbid conditions and prevent exacerbation or deterioration Update acute care plan with appropriate goals if chronic or comorbid symptoms are exacerbated and prevent overall improvement and discharge Normal [facility] 30 The patient is Moderately Stable - Low risk of patient condition declining or worsening The patient's goals for the shift include no chest pain The clinical goals for the shift include VSS, stress test Over the shift, the patient did make progress toward the following goals. Stress test positive, heart cath ordered for tomorrow. [facility] 30 Daily Case Managemen t Update Multidisciplinary rounds have been completed. Barriers to Discharge: Pending clinical course and improvement in clinical condition. Patient undergoing echocardiogram and stress test today; pending results. Discharge plan is home when medically ready. Diet: Dietary Orders (From admission, onward) Start Ordered 03/13/24517 Diet NPO Diet effective now Comments: No exceptions Question: Reason for NPO: Answer: Operation/Procedure 03/13/24522 Physician Expected Discharge Date: 03/16/2024 Discharge Delays: PT Six Click Score: 23 OT Six Click Score: PT Recommendations: OT Recommendations: New Consults: [facility] 30 The patient is Moderately Stable - Low risk of patient condition declining or worsening The patient's goals for the shift include no chest pain The clinical goals for the shift include stable vitals Over the shift, the patient did make progress toward the following goals. Barriers to progression include active acute event with chest pain prior to pt transfer to [facility]. Recommendations to address these barriers include assess pain and encourage pt to express when having pain. Normal [facility] APTTon 03-13-2024 ACTIVATED PARTIAL THROMBOPLASTIN TIME IN PPP BY COAGULATION ASSAY 61.0 Seconds High 25.0-35.0 [facility] Comment on above: Order Comment: Basel ine aPTT before initiating heparin infusion. Result Comment: Clin ical significance of the APTT is questionable in the presence of heparin. Performed By: #### L [id number] #### [facility] ([place]) [address] [place] [address] B-TYPE NATRIURETIC PEPTIDEon 03-13-2024 Natriuretic peptide B (Bld) [Mass/Vol] 65 pg/mL Normal 0-100 [facility] Comment on above: Performed By: #### L [id number] #### [facility] ([place]) [address] [place] [address] CBCon 03-13-2024 Erythrocyte distribution width (RBC) [Ratio] 14.6 % Normal 11.5-15.0 [facility] Comment on above: Performed By: #### L [id number] ####[facility] ([facility] [place] [address] ERYTHROCYTE MEAN CORPUSCULAR HEMOGLOBIN CONCENTRATION (G/DL) BY AUTOMATED 32.2 g/dL Normal 32.0-35.0 [facility] Comment on above: Performed By: #### L [id number] ####[facility] ([facility] [place] [address] Hematocrit (Bld) [Volume fraction] 36.9 % Low 39.0-55.0 [facility] Comment on above: Performed By: #### L [id number] ####[facility] ([facility] [place] [address] Hemoglobin (Bld) [Mass/Vol] 11.9 g/dL Low 13.0-17.0 [facility] Comment on above: Performed By: #### L [id number] ####[facility] ([facility] [place] [address] MCH (RBC) [Entitic mass] 28.7 pg Normal 27.0-33.0 [facility] Comment on above: Performed By: #### L [id number] ####[facility] ([facility] [place] [address] MCV (RBC) [Entitic vol] 89.1 fL Normal 82.0-98.0 [facility] Comment on above: Performed By: #### L [id number] ####[facility] ([facility] [place] [address] PLATELETS (10*3/UL) IN BLOOD AUTOMATED COUNT 159 10*3/uL Normal 150-400 [facility] Comment on above: Performed By: #### L [id number] ####[facility] ([facility] [place] [address] RBC (Bld) [#/Vol] 4.14 10*6/uL Low 4.20-5.70 [facility] Comment on above: Performed By: #### L [id number] ####[facility] ([facility] [place] [address] WBC (Bld) [#/Vol] 5.62 10*3/uL Normal 4.00-10.60 [facility] Comment on above: Performed By: #### L [id number] ####[facility] ([facility] [place] [address] COMPREHENSIVE METABOLIC PANE Mack 03-13-2024 Albumin [Mass/Vol] 3.8 g/dL Normal 3.5-5.7 [facility] Comment on above: Performed By: #### L [id number] #### [facility] ([facility] [address] [place] [address] ALP [Catalytic activity/Vol] 68 U/L Normal 34-104 [facility] Comment on above: Performed By: #### L [id number] #### [facility] ([facility] [address] [place] [address] ALT [Catalytic activity/Vol] 33 U/L Normal 7-52 [facility] Comment on above: Performed By: #### L [id number] #### [facility] ([facility] [address] [place] [address] Anion gap [Moles/Vol] 11 mmol/L Normal 7-20 [facility] Comment on above: Performed By: #### L [id number] #### [facility] ([facility])) [address] [place] [address] AST [Catalytic activity/Vol] 27 U/L Normal 13-39 [facility] Comment on above: Performed By: #### L [id number] #### [facility] [address] [place] [address] Bilirubin [Mass/Vol] 0.5 mg/dL Normal 0.3-1.0 [facility] Comment on above: Performed By: #### L [id number] #### [facility] ([facility])) [address] [place] [address] Calcium [Mass/Vol] 8.9 mg/dL Normal 8.6-10.3 [facility] Comment on above: Performed By: #### L [id number] #### [facility] ([facility])) [address] [place] [address] Chloride [Moles/Vol] 102 mmol/L Normal 98-107 [facility] Comment on above: Performed By: #### L [id number] #### [facility] ([facility])) [address] [place] [address] CO2 [Moles/Vol] 30 mmol/L Normal 21-31 [facility] Comment on above: Performed By: #### L [id number] #### [facility] ([facility])) [address] [place] [address] Creatinine [Mass/Vol] 0.86 mg/dL Normal 0.70-1.30 [facility] Comment on above: Performed By: #### L [id number] #### [facility] ([facility])) [address] [place] [address] GLOMERULAR FILTRATION RATE ML/MIN/1.73 SQ M.PREDICTED 94.3 mL/min/1.73m*2 Normal >60.0 [facility] Comment on above: Result Comment: The [facility]???s estimated glomerular filtration rate (eGFR) will no [...] group of individuals. Performed By: #### L [id number] #### [facility] ([facility]) [address] [place] [address] Glucose [Mass/Vol] 144 mg/dL High 70-100 [facility] Comment on above: Performed By: #### L [id number] #### [facility] [address] [place] [address] Potassium [Moles/Vol] 3.5 mmol/L Normal 3.5-5.1 [facility] Comment on above: Performed By: #### L [id number] #### [facility] ([facility])) [address] [place] [address] Protein [Mass/Vol] 6.5 g/dL Normal 6.0-8.3 [facility] Comment on above: Performed By: #### L [id number] #### [facility] ([facility])) [address] [place] [address] Sodium [Moles/Vol] 139 mmol/L Normal 136-145 [facility] Comment on above: Performed By: #### L [id number] #### [facility] ([facility])) [address] [place] [address] Urea nitrogen [Mass/Vol] 17 mg/dL Normal 7-25 [facility] Comment on above: Performed By: #### L [id number] #### [facility] ([facility])) [address] [place] [address] UREA NITROGEN/CREATININE (MASS RATIO) IN SER/PLAS 19.8 Normal [facility] Comment on above: Performed By: #### L [id number] #### [facility] ([facility])) [address] [place] [address] CONSULTon 03-13-2024 CONSULT - Attestation signed by Arnoldo Killian MD at 03/13/2024 7:41 PM I personally saw and examined the patient on the same date of service as resident/fellow Dr jeff. I discussed the findings and therapeutic plan with the resident/fellow Dr jeff. I agree with the documentation, except for any edits/updates below. Teaching Physician's Revisions: None Patient presented with exertional chest heaviness has been going on for the last couple weeks and usually resolves with rest. He has many risk factors including hypertension and hyperlipidemia. In [facility] he hide high elevated high-sensitivity troponin of 104 however after he transferred here his troponin was negative and EKG did not show acute changes. He underwent stress nuclear test today which was positive for anterior and apical ischemia. Currently his chest pain-free. The plan is to proceed with cardiac catheterization tomorrow. The procedure was discussed with him including risk and benefits and he is agreeable. Continue current medications including aspirin, Lipitor, Zetia, and lisinopril. The patient cannot be on beta-anders due to sinus bradycardia however he is on calcium channel anders in the form of amlodipine. Arnoldo Killian MD, [facility] Cardiology Consult Note Reason for Consult: positive stress test HPI: Eunice Marte is a 68 y.o. male with history of diabetes mellitus, hypertension was referred to our hospital for concerns for NSTEMI the patient was seen in [place] with episodes of chest pain that got worse over the last 2 weeks, chest pain is heavy in nature without radiation associated with exertion improves with rest, he was found to have high-sensitivity troponin of 104 patient was transferred here for further evaluation here patient had no chest pain, serial troponin was negative EKG showed no acute ischemic changes, patient underwent stress test that was positive for ischemia cardiology consulted for further evaluation. Cardiology ROS: Negative except for the above Past Medical History He has a past medical history of Asthma, BPH (benign prostatic hyperplasia), CAD (coronary artery disease), CKD (chronic kidney disease), stage III ([facility]), Depression, DM (diabetes mellitus) ([facility]) (2007), Erectile dysfunction, GERD (gastroesophageal reflux disease), H/O deep venous thrombosis, HLD (hyperlipidemia), HTN (hypertension), Myocardial infarction ([facility]) (2021), ALLISON on CPAP, Prostate cancer ([facility]), Status post placement of implantable loop recorder, and Stroke ([facility]) (04/2015). Surgical History He has a past surgical history that includes Rotator cuff repair (Left); Lumbar discectomy; Prostate biopsy (06/2022); Total knee arthroplasty (Left); Penile prosthesis implant (07/30/2013); Inguinal hernia repair (Right); and Cataract extraction (Right, 02/03/2021). Social History He reports that he quit smoking about 9 years ago. His smoking use included cigarettes. He has a 5.00 pack-year smoking history. He has been exposed to tobacco smoke. He has never used smokeless tobacco. He reports current alcohol use of about 3.0 standard drinks of alcohol per week. He reports that he does not currently use drugs after having used the following drugs: Marijuana. Family History Family History Problem Relation Name Age of Onset Heart disease Mother 58 Heart disease Maternal Grandmother heart trouble Heart disease Maternal Grandfather heart trouble Allergies Penicillins and Labetalol Medications Medications Prior to Admission Medication Sig Dispense Refill Last Dose albuterol 90 mcg/actuation inhaler Inhale 2 puffs as needed by inhalation route for 25 days. amLODIPine (Norvasc) 10 mg tablet Take 10 mg by mouth in the morning. aspirin 81 mg EC tablet Take 1 tablet by mouth in the morning. atorvastatin (Lipitor) 80 mg tablet 80 mg. blood sugar diagnostic strip Check bs once E11.40daily calcium carbonate-vitamin D3 (Calcium with Vitamin D) 600 mg-10 mcg (400 unit) tablet Take 1 tablet by mouth in the morning. 30 tablet 11 cholecalciferol (Vitamin D-3) 50 MCG (2000 UT) tablet Take by mouth in the morning. diaper,brief,adult,di sposable (Depend Real Fit Brief Men L/XL) misc 1 Bag in the morning. 32 each 3 ezetimibe (Zetia) 10 mg tablet TAKE 1 TABLET BY MOUTH IN THE MORNING 90 tablet 0 FiberCon 625 mg tablet Take 1,250 mg by mouth in the morning. glipiZIDE (Glucotrol) 10 mg tablet Take 10 mg by mouth in the morning and at bedtime. HumaLOG Mix 75-25 KwikPen 100 unit/mL (75-25) injection Lantus Solostar U-100 Insulin 100 unit/mL (3 mL) injection pen INJECT 35 UNITS SUBCUTANEOUSLY AT BEDTIME lisinopriL-hydrochlor othiazide 20-12.5 mg tablet TAKE 1 TABLET BY MOUTH IN THE MORNING AND AT BEDTIME 180 tablet 0 metFORMIN XR (Gl (more content not included)... Normal [facility] FERRITINon 03-13-2024 FERRITIN (NG/ML) IN SER/PLAS 281.0 ng/mL Normal 24.0-336.0 [facility] Comment on above: Performed By: #### L [id number] ####[facility] ([facility])[address] [place] [address] FOLATEon 03-13-2024 FOLATE (NG/ML) IN SER/PLAS 9.66 ng/mL Normal 6.6-1000 [facility] Comment on above: Performed By: #### L [id number] ####[facility] ([facility])[address] [place] [address] HPon 03-13-2024 HP - Attestation signed by Arnoldo Killian MD at 03/13/2024 7:41 PM I personally saw and examined the patient on the same date of service as resident/fellow Dr jeff. I discussed the findings and therapeutic plan with the resident/fellow Dr jeff. I agree with the documentation, except for any edits/updates below. Teaching Physician's Revisions: None Patient presented with exertional chest heaviness has been going on for the last couple weeks and usually resolves with rest. He has many risk factors including hypertension and hyperlipidemia. In [facility] he hide high elevated high-sensitivity troponin of 104 however after he transferred here his troponin was negative and EKG did not show acute changes. He underwent stress nuclear test today which was positive for anterior and apical ischemia. Currently his chest pain-free. The plan is to proceed with cardiac catheterization tomorrow. The procedure was discussed with him including risk and benefits and he is agreeable. Continue current medications including aspirin, Lipitor, Zetia, and lisinopril. The patient cannot be on beta-anders due to sinus bradycardia however he is on calcium channel anders in the form of amlodipine. Arnoldo Killian MD, [facility] Cardiology Consult Note Reason for Consult: positive stress test HPI: Eunice Marte is a 68 y.o. male with history of diabetes mellitus, hypertension was referred to our hospital for concerns for NSTEMI the patient was seen in [place] with episodes of chest pain that got worse over the last 2 weeks, chest pain is heavy in nature without radiation associated with exertion improves with rest, he was found to have high-sensitivity troponin of 104 patient was transferred here for further evaluation here patient had no chest pain, serial troponin was negative EKG showed no acute ischemic changes, patient underwent stress test that was positive for ischemia cardiology consulted for further evaluation. Cardiology ROS: Negative except for the above Past Medical History He has a past medical history of Asthma, BPH (benign prostatic hyperplasia), CAD (coronary artery disease), CKD (chronic kidney disease), stage III ([facility]), Depression, DM (diabetes mellitus) ([facility]) (2007), Erectile dysfunction, GERD (gastroesophageal reflux disease), H/O deep venous thrombosis, HLD (hyperlipidemia), HTN (hypertension), Myocardial infarction ([facility]) (2021), ALLISON on CPAP, Prostate cancer ([facility]), Status post placement of implantable loop recorder, and Stroke ([facility]) (04/2015). Surgical History He has a past surgical history that includes Rotator cuff repair (Left); Lumbar discectomy; Prostate biopsy (06/2022); Total knee arthroplasty (Left); Penile prosthesis implant (07/30/2013); Inguinal hernia repair (Right); and Cataract extraction (Right, 02/03/2021). Social History He reports that he quit smoking about 9 years ago. His smoking use included cigarettes. He has a 5.00 pack-year smoking history. He has been exposed to tobacco smoke. He has never used smokeless tobacco. He reports current alcohol use of about 3.0 standard drinks of alcohol per week. He reports that he does not currently use drugs after having used the following drugs: Marijuana. Family History Family History Problem Relation Name Age of Onset Heart disease Mother 58 Heart disease Maternal Grandmother heart trouble Heart disease Maternal Grandfather heart trouble Allergies Penicillins and Labetalol Medications Medications Prior to Admission Medication Sig Dispense Refill Last Dose albuterol 90 mcg/actuation inhaler Inhale 2 puffs as needed by inhalation route for 25 days. amLODIPine (Norvasc) 10 mg tablet Take 10 mg by mouth in the morning. aspirin 81 mg EC tablet Take 1 tablet by mouth in the morning. atorvastatin (Lipitor) 80 mg tablet 80 mg. blood sugar diagnostic strip Check bs once E11.40daily calcium carbonate-vitamin D3 (Calcium with Vitamin D) 600 mg-10 mcg (400 unit) tablet Take 1 tablet by mouth in the morning. 30 tablet 11 cholecalciferol (Vitamin D-3) 50 MCG (2000 UT) tablet Take by mouth in the morning. diaper,brief,adult,di sposable (Depend Real Fit Brief Men L/XL) misc 1 Bag in the morning. 32 each 3 ezetimibe (Zetia) 10 mg tablet TAKE 1 TABLET BY MOUTH IN THE MORNING 90 tablet 0 FiberCon 625 mg tablet Take 1,250 mg by mouth in the morning. glipiZIDE (Glucotrol) 10 mg tablet Take 10 mg by mouth in the morning and at bedtime. HumaLOG Mix 75-25 KwikPen 100 unit/mL (75-25) injection Lantus Solostar U-100 Insulin 100 unit/mL (3 mL) injection pen INJECT 35 UNITS SUBCUTANEOUSLY AT BEDTIME lisinopriL-hydrochlor othiazide 20-12.5 mg tablet TAKE 1 TABLET BY MOUTH IN THE MORNING AND AT BEDTIME 180 tablet 0 metFORMIN XR (Gl (more content not included)... Normal [facility] IRON AND TIBCon 03-13-2024 IRON (UG/DL) IN SER/PLAS 95 ug/dL Normal 50-212 [facility] Comment on above: Performed By: #### L [id number] ####[facility] ([facility] [place] [address] IRON BINDING CAPACITY (UG/DL) IN SER/PLAS 271 ug/dL Normal 250-450 [facility] Comment on above: Performed By: #### L [id number] ####[facility] ([facility] [place] [address] IRON BINDING CAPACITY.UNSATURATED (UG/DL) IN SER/PLAS 176.0 ug/dL Normal 155.0-355.0 [facility] Comment on above: Performed By: #### L [id number] ####[facility] ([facility] [place] [address] IRON SATURATION (%) IN SER/PLAS 35 % Normal 20-50 [facility] Comment on above: Performed By: #### L [id number] ####[facility] ([facility] [place] [address] LACTIC ACID WITH 4 HOUR REFL EXon 03-13-2024 LACTATE (MMOL/L) IN SER/PLAS 1.0 mmol/L Normal 0.5-2.2 [facility] Comment on above: Performed By: #### L [id number] #### [facility] [address] [place] [address] MAGNESIUMon 03-13-2024 Magnesium [Mass/Vol] 2.0 mg/dL Normal 1.9-2.7 [facility] Comment on above: Performed By: #### L [id number] ####[facility] [place] [address] PHOSPHORUSon 03-13-2024 Magnesium [Mass/Vol] 3.6 mg/dL Normal 2.5-5.0 [facility] Comment on above: Performed By: #### L [id number] #### [facility] ([facility] [address] [place] [address] PLATELET COUNTon 03-13-2024 PLATELETS (10*3/UL) IN BLOOD AUTOMATED COUNT 171 10*3/uL Normal 150-400 [facility] Comment on above: Performed By: #### L [id number] ####[facility] ([facility] [place] [address] POCT GLUCOSE METER UNSOLICIT ED RESULTSon 03-13-2024 Glucose [Mass/Vol] 196 mg/dL High 70-105 [facility] Comment on above: Order Comment: Waive d Testing in the ED is performed under the ED CLIA certificate #[id number]. Result Comment: [email or web address] Performed By: #### L [id number] ####[facility] ([facility] [place] [address] Glucose [Mass/Vol] 213 mg/dL High 70-105 [facility] Comment on above: Order Comment: Waive d Testing in the ED is performed under the ED CLIA certificate #[id number]. Result Comment: kgoo [email or web address] Performed By: #### L [id number] #### [facility] ([facility] [address] [place] [address] Prep for Procedureon 024 Prep for Procedure [id number] Eunice Marte 1955 M Date Provider Department [place] 03/13/2024 SD [facility] HEART UT HeartVAS Family History Problem Relation Age of Onset Heart disease Mother 58 Heart disease Maternal Grandmother Comments: heart trouble Heart disease Maternal Grandfather Comments: heart trouble Family Status - Relation Status Age at Mother Father Mother's Sister Mother's Brother Father's Sister Father's Brother Maternal Grandmother Maternal Grandfather Paternal Grandmother Paternal Grandfather Other Normal [facility] TROPONIN Ion 03-13-2024 Troponin I.cardiac [Mass/Vol] 0.03 ng/mL Normal 0.00-0.04 [facility] Comment on above: Performed By: #### L [id number] #### [facility] ([facility] [address] [place] [address] Troponin I.cardiac [Mass/Vol] 0.04 ng/mL Normal 0.00-0.04 [facility] Comment on above: Performed By: #### L [id number] ####[facility] (AKER)[address] [place] [address] Troponin I.cardiac [Mass/Vol] 0.03 ng/mL Normal 0.00-0.04 [facility] Comment on above: Performed By: #### L [id number] #### [facility] ([facility] [address] [place] [address] VITAMIN B12on 03-13-2024 Cobalamin (Vitamin B12) [Mass/Vol] 313 pg/mL Normal 180-914 [facility] Comment on above: Result Comment: REFE RENCE RANGES: 180-914 pg/mL Normal 145-179 pg/mL Indeterminate <145 pg/mL Deficient Performed By: #### L [id number] ####[facility] ([facility] [place] [address] 36on 02-14-2024 36 Prescription approve d 02/13/2024 through mychart request. Lilia Gonzalez MA Normal [facility] Follow-Upon 02-14-2024 Follow-Up [id number] Eunice Marte 1955 M Date Provider Department Center 02/14/2024 PHYLLIS DANGELO DCC ONC DCC Family History Problem Relation Age of Onset Heart disease Mother 58 Heart disease Maternal Grandmother Comments: heart trouble Heart disease Maternal Grandfather Comments: heart trouble Family Status - Relation Status Age at Mother Father Mother's Sister Mother's Brother Father's Sister Father's Brother Maternal Grandmother Maternal Grandfather Paternal Grandmother Paternal Grandfather Other Level of Service:39681 [place] OFFICE/OUTPATIENT ESTABLISHED LOW MDM 20 MIN Reason for Visit and Comments: Follow-up [595565] - Here for F/U of his prostate CA and to review PSA results. Normal [facility] Labon 02-06-2024 Lab [id number] [facility] nov[facility] 1955 M Date Provider Department Center 02/06/2024 2243-[facility] LAB RESOURCE [facility] DRAW [facility] Family History Problem Relation Age of Onset Heart disease Mother 58 Heart disease Maternal Grandmother Comments: heart trouble Heart disease Maternal Grandfather Comments: heart trouble Family Status - Relation Status Age at Mother Father Mother's Sister Mother's Brother Father's Sister Father's Brother Maternal Grandmother Maternal Grandfather Paternal Grandmother Paternal Grandfather Other Normal [facility] PSA, DIAGNOSTICon 02-06-2024 PROSTATE SPECIFIC AG (NG/ML) IN SER/PLAS <0.1 Low 0.4-4 [facility] Comment on above: Order Comment: To be collected in 01/2024 Performed By: #### L [id number] #### [facility] (BEAKER) [address] [place] [address] TESTOSTERONEon 02-06-2024 TESTOSTERONE (NG/DL) IN SER/PLAS 11 ng/dL Low 193-740 [facility] Comment on above: Order Comment: To be collected in 01/2024 Result Comment: Test Performed by [facility] [place] [address] - Released 02/06/2024 22:51 Performed By: #### L [id number] ####[facility] [id number] [place] [address] Telephoneon 10-31-2023 Telephone [phone] [facility] In[facility] 1955 M Date Provider Department Center 10/31/2023 290[facility] Family History Problem Relation Age of Onset Heart disease Mother 58 Heart disease Maternal Grandmother Comments: heart trouble Heart disease Maternal Grandfather Comments: heart trouble Family Status - Relation Status Age at Mother Father Mother's Sister Mother's Brother Father's Sister Father's Brother Maternal Grandmother Maternal Grandfather Paternal Grandmother Paternal Grandfather Other Normal [facility] MLR HEMOGLOBIN A1Con 024 Glucose [Mass/Vol] 189 mg/dL [facility] HbA1c (Bld) [Mass fraction] 8.2 % High 4.5 - 6.2 % [facility] Comment on above: ADA RECOMMENDED LIMI T 4.0 - 6.0 ADA THERAPEUTIC TARGET < 7.0 ACTION SUGGESTED > 7.0 Interpretation and review of laboratory results Abnormal [facility] CLINISYNC [facility] Follow-Upon 09-20-2023 Follow-Up [id number] Eunice Marte 1955 M Date Provider Department Center 09/20/2023 397-PHYLLIS ACOSTA ONC DCC Family History Problem Relation Age of Onset Heart disease Mother 58 Heart disease Maternal Grandmother Comments: heart trouble Heart disease Maternal Grandfather Comments: heart trouble Family Status - Relation Status Age at Mother Father Mother's Sister Mother's Brother Father's Sister Father's Brother Maternal Grandmother Maternal Grandfather Paternal Grandmother Paternal Grandfather Other Level of Service:05290 CA OFFICE/OUTPATIENT ESTABLISHED LOW MDM 20 MIN Reason for Visit and Comments: Follow-up [071408] - 2 month follow up with PSA and testosterone prior Normal [facility] Labon 08-09-2023 Lab [id number] Eunice Marte 1955 M Date Provider Department Center 08/09/2023 2243-[facility] DCC LAB RESOURCE DCC DRAW [facility] Family History Problem Relation Age of Onset Heart disease Mother 58 Heart disease Maternal Grandmother Comments: heart trouble Heart disease Maternal Grandfather Comments: heart trouble Family Status - Relation Status Age at Mother Father Mother's Sister Mother's Brother Father's Sister Father's Brother Maternal Grandmother Maternal Grandfather Paternal Grandmother Paternal Grandfather Other Normal [facility] PSA, SCREENINGon 08-09-2023 PROSTATE SPECIFIC AG (NG/ML) IN SER/PLAS 0.1 ng/mL Low 0.4-4 [facility] Comment on above: Order Comment: To be collected 07/2023. Performed By: #### L [id number] #### [facility] (BEAKER) [address] [place] [address] TESTOSTERONEon 08-09-2023 TESTOSTERONE (NG/DL) IN SER/PLAS 6 ng/dL Low 220-1000 [facility] Comment on above: Order Comment: To be collected 07/2024. Result Comment: Test Performed by [employer] [address] [place] [address] - Released 08/09/2023 16:24 Performed By: #### L [id number] #### [facility] (HYUN) [address] [place] [address] Documentationon 06-22-2023 Documentation [id number] [facility] novak 1955 [facility] Provider Department Center 06/22/2023 THELMA MORALES RAD ONC [facility] Family History Problem Relation Age of Onset Heart disease Mother 58 Heart disease Maternal Grandmother Comments: heart trouble Heart disease Maternal Grandfather Comments: heart trouble Family Status - Relation Status Age at Mother Father Mother's Sister Mother's Brother Father's Sister Father's Brother Maternal Grandmother Maternal Grandfather Paternal Grandmother Paternal Grandfather Other Normal [facility] Letter (Out)on 06-21-2023 Letter (Out) [id number] Eunice Marte 1955 [facility] Provider Department Center 06/21/2023 OLIVER MIJARES RAD ONC [facility] Family History Problem Relation Age of Onset Heart disease Mother 58 Heart disease Maternal Grandmother Comments: heart trouble Heart disease Maternal Grandfather Comments: heart trouble Family Status - Relation Status Age at Mother Father Mother's Sister Mother's Brother Father's Sister Father's Brother Maternal Grandmother Maternal Grandfather Paternal Grandmother Paternal Grandfather Other Normal [facility] Letter (Out)on 06-10-2023 Letter (Out) [id number] Eunice Marte 1955 [facility] Provider Department Center 06/10/2023 None-None [facility] Family History Problem Relation Age of Onset Heart disease Mother 58 Heart disease Maternal Grandmother Comments: heart trouble Heart disease Maternal Grandfather Comments: heart trouble Family Status - Relation Status Age at Mother Father Mother's Sister Mother's Brother Father's Sister Father's Brother Maternal Grandmother Maternal Grandfather Paternal Grandmother Paternal Grandfather Other Normal [facility] [id number] 06-07-2023 [id number] 06/07/2023. Patient seen in [facility]. Patients was present for the ICF discussion. Research coordinator discussed My[employer] study with patient including purpose of the study, why patient is a potential patient, follow up time points and study questionnaires. Patient and verbalized understanding of study requirements and follow up schedules. Patient agreed to participate. ICF signed and signed copy given to patient. Meagan Pettit RN Normal [facility] Follow-Upon 06-07-2023 Follow-Up [id number] Eunice Marte 1955 M [facility] Provider Department [place] 06/07/2023 PHYLLIS DANGELO [facility] ONC [facility] Family History Problem Relation Age of Onset Heart disease Mother 58 Heart disease Maternal Grandmother Comments: heart trouble Heart disease Maternal Grandfather Comments: heart trouble Family Status - Relation Status Age at Mother Father Mother's Sister Mother's Brother Father's Sister Father's Brother Maternal Grandmother Maternal Grandfather Paternal Grandmother Paternal Grandfather Other Level of Service:61324 CA OFFICE/OUTPATIENT ESTABLISHED MOD MDM 30-39 MIN Reason for Visit and Comments: Follow-up [866772] - Dexa and Labs Normal [facility] 29on 05-30-2023 29 Encounter addended by: Silvano Martinez on: 06/06/2023 10:10 AM Actions taken: Clinical Note Signed, Letter saved Normal [facility] Labon 05-25-2023 Lab [id number] Eunice Marte 1955 M [facility] Provider Department [place] 05/25/2023 [facility] LAB RESOURCE [facility] DRAW [facility] Family History Problem Relation Age of Onset Heart disease Mother 58 Heart disease Maternal Grandmother Comments: heart trouble Heart disease Maternal Grandfather Comments: heart trouble Family Status - Relation Status Age at Mother Father Mother's Sister Mother's Brother Father's Sister Father's Brother Maternal Grandmother Maternal Grandfather Paternal Grandmother Paternal Grandfather Other Normal [facility] PSA, SCREENINGon 05-25-2023 PROSTATE SPECIFIC AG (NG/ML) IN SER/PLAS 8.9 ng/mL High 0.4-4 [facility] Comment on above: Order Comment: To be collected 05/2023. Performed By: #### L [id number] #### [facility] HOSPITAL LAB (BEAKER) [address] [place] [address] TESTOSTERONEon 05-25-2023 TESTOSTERONE (NG/DL) IN SER/PLAS 283 ng/dL Normal 220-1000 [facility] Comment on above: Order Comment: To be collected 05/2023. Result Comment: Test Performed by [employer] [address] [place] [address] - Released 05/25/2023 20:44 Performed By: #### L [id number] #### [facility] [address] [place] [address] Pathology Reporton 3 Pathology Report [id number]# 1.00CD:127 Normal [facility] Urology Office/Clinic Noteon 02-03-2023 Urology Office/Clinic Note Chief Complaint Pt is here for 3 month f/u HPI Staff Eunice is a 67 y.o. male here for 3 month follow up. Previous DX: Prostate Cancer, BPH, Nocturia, ED. *Oxybutynin 5mg QD & Myrbetriq 50mg QD therapy. Pt referred to to [place] for Retzius sparing prostatectomy. Pt saw Dr [...] - 8.2 & 5.0% Prior TRUS/Bx by [facility] 08/2020 was negative MRI prostate 05/26/22 - [...] genomic risk 0.73. Consult with Dr. Hassan 02/01/23 - RT x 4 wks recommended if pt desires. Likely worsening LUTS. Referred to tertiary center regarding RALP given comorbidities and IPP. Unsure why seen by 2 Urologists at [facility], notes were reviewed Urology consult Dr. Valdemar Ramos [facility] 11/30/22. Urology oncology consult Dr. Phyllis Acosta [facility] 12/07/22 - plans for RALP pending cardiac [...] prostatectomy/IPP infectio (more content not included)... Normal [facility] Comment on above: Result Comment: Elec [...] bladder) Your Care Team Attending Physician - Dewey [...] bladder) ALLISON (more content not included)... Normal [facility] Patient Educationon 02-03-20 Patient Education Oncology Prostate [...] under a microscope. This is called the Minne[place] score and the total score can range from 6?10, indicating how likely it is that the cancer will spread (metastasize) to other parts of the body. The higher the score, the greater the likelihood that the cancer will spread. ? Minneola 6 or lower: This indicates that the cancer cells look similar to normal prostate cells (well differentiated). ? Minneola 7: This indicates that the cancer cells [...] external be (more content not included)... Normal [facility] Provider Letteron 02-02-2023 Provider Letter February 02, 2023 EUNICE [address] [place] [address] : 1955 To Whom It May Concern, Please excuse above patient from work. Date of Appointments: From: 02/02/2023 To: _ May Return to Work On:02/03/2023 Restrictions: none Comments: Shayy Marte is with patient for all appointments, any question, please call our office Sincerely, [facility] [address], [place] [address] [facility] Screenson 02-02-2023 Screens [id number]# 1.00CD:127 [facility] Screens [id number]# 1.00CD:127 [facility] Consultation Noteon 02-02-20 Consultation Note [id number]#1 .00CD:127 [facility] Consultation Noteon 12-09-19 23 Consultation Note [id number] .00CD:127 [facility] Ambulatory Visit Summaryon 0 11-03-2022 Ambulatory Visit Summary LYDIA EUNICE Alcantara :1955 Visit Date:11/03/2022 Ambulatory Visit Instructions Your Diagnosis Prostate cancer Enlarged prostate with urinary obstruction Nocturia Erectile dysfunction Tests Performed Urnls Dip Stick Auto w/o Microscopy POC 28439 Your Care Team Attending Physician - Milvia [...] Milvia Palomo MD Where: [facility] Patient Educationon 11-04-19 23 Patient Education Oncology [...] Are older than age 65. ? Are -Ivorian. ? Are obese. ? Have a family [...] Follow these instructions at home: ? Take eudt-yjc-eswoiju and prescription medicines only as told by [...] cancer specialis (more content not included)... Normal [facility] Urology Office/Clinic Noteon 11-03-2022 Urology Office/Clinic Note [...] Jones for Retzius sparing RALP given IPP - [...] wks recommended if proceeding Was referred to [facility] for retzius sparing prostatectomy consult, has yet to be contacted. Pt still wants to procedure with surgical intervention over radiation. Follow up 2-3 mos or sooner if needed. Pt understands and agrees with plan. -contact [facility], will call pt with update. Pt to call our office if they do not hear from [facility] in 2-3 wks 2. Enlarged prostate with [...] URL, URO (more content not included)... Normal [facility] Comment on above: Result Comment: Elec tronically Signed By: Milvia Palomo MD\.br\Date and Time Signed: 11/03/22 08:40 EDT\.br\Electronically Co-Signed By: Gifty Mann\.br\Date and Time Co-Signed: 11/03/22 08:35 EDT Lab Reportson 10-26-2022 Lab Reports [id number] .00CD:127 Normal [facility] PSA, FREE AND TOTAL RATIOon 10-26-2022 % Free PSA 5.0 % Normal [facility] Comment on above: Result Comment: The [...] Performed By: #### P TT, PT #### [facility] [address] [place] [address] Dr. Marcell Luque Prostate specific Ag [Mass/Vol] 8.2 ng/mL Critically high 0.0-4.0 [facility] Comment on above: Result Comment: Anamika robb ECLIA methodology. . According to the [place] [employer], Serum PSA should decrease and [...] Performed By: #### P TT, PT #### [facility] [address] [place] [address] Dr. Marcell Luque PSA, Free 0.41 ng/mL Normal N/A [facility] Comment on above: Result Comment: Anamika robb ECLIA methodology. Performed By: #### P TT, PT #### [facility] [address] [place] [address] Dr. Marcell Luque Auth for Release of Medical Recordson 10-25-2022 Auth for Release of Medical Records [id number]#1 .00CD:127 Normal [facility] Screenson 10-11-2022 Screens [id number] #1.00CD:127 Normal [facility] Screens [id number] .00CD:127 Normal [facility] Ambulatory Visit Summaryon 0 10-06-2022 Ambulatory Visit Summary EUNICE MARTE :1955 Visit Date:10/06/2022 Ambulatory Visit Instructions Your Diagnosis Prostate cancer BPH with urinary obstruction Nocturia Erectile dysfunction Tests Performed Urnls Dip Stick Auto w/o Microscopy POC 14874 Your Care Team Attending Physician - Dewey [...] Follow-Up Appointments Tuesday 10:10 AM EDT With: Milvia Palomo MD Where: [facility] Normal [facility] Patient Educationon 10-06-19 Patient Education Obstetrics and Gynecology Kegel Exercises [...] 07/25/2013 Document Revised: 03/28/2019 Document Reviewed: 03/28/2019 [employer] Patient Education ? 2020 [employer]. Oncology Brachytherapy for Prostate Cancer Brachytherapy for [...] including vitamins, herbs, eye drops, creams, and pyic-gmb-uafkwzt medicines. ? Any problems you or family [...] that c (more content not included)... Normal [facility] Provider Letteron 10-06-2022 Provider Letter October 06, 2022 [address] [place] [address] EUNICE MARTE 1955 To Whom It May Concern, Please excuse above patient from work. Date of Appointment: From: 10/06/2022 To: May Return to Work On:10/06/2022 Restrictions: Comments: Any questions, please call our office. Sincerely, [facility] [address], [place] [address] [facility] Urology Office/Clinic Noteon 10-06-2022 Urology Office/Clinic Note [...] Hx IPP > 10 yrs ago in [place]. No prior abd surgeries. Hx L5 fusion, [...] pathology: prostate adenocarcinoma Grade group 2 in +321 cores , 81% involved (including MARÍA ELENA [...] understands and agrees with plan. -refer to [place] for Retzius sparing RALP given IPP -PSA [...] Contact Information Milvia Palomo MD, URL, URO Additional Instructions: f/u 1 month Patient Education Kegel Exercises Brachytherapy for Prostate Cancer Laparoscopic Prostatectomy Prostate Cancer I, Gifty Dean (more content not included)... Normal [facility] Comment on above: Result Comment: Elec tronically Signed By: Milvia Palomo MD\.br\Date and Time Signed: 10/06/22 08:48 EST\.br\Electronically Co-Signed By: Gifty Mann\.br\Date and Time Co-Signed: 10/06/22 08:37 EST [facility] 09-27-2022 Lab Reports [id number] .00CD:127 Normal [facility] Reference Lab Reporton 09-27 Reference Lab Report [id number]#1 .00CD:127 Normal [facility] Consultation Noteon 09-24-19 Consultation Note [id number]#1 .00CD:127 Normal [facility] RAD - Pet Scan Reporton RAD - Pet Scan Report [id number] .00CD:127 Normal [facility] Formson 09-10-2022 Forms [id number] .00CD:127 Normal [facility] RAD - CT Reporton 08-20-2022 RAD - CT Report [id number]#1 .00CD:127 Normal [facility] Lab Reportson 08-09-2022 Lab Reports [id number] .00CD:127 Normal [facility] CREATININEon 08-06-2022 Creatinine [Mass/Vol] 0.99 mg/dL Normal 0.70-1.30 [facility] Comment on above: Performed By: #### C MATI #### [facility] [address] [place] [address] Dr. Marcell Luque EGFR-AF ENGLISH >60 Normal >=60 [facility] Comment on above: Performed By: #### C MATI #### [facility] [address] [place] [address] Dr. Marcell Luque EGFR-NON AF ENGLISH >60 Normal >=60 [facility] Comment on above: Performed By: #### C MATI #### [facility] [address] [place] [address] ABD/PELV W CONon [...] by: SUELLEN MAYO Date: 2022-08-06 16:[address] [facility] Physician Orderon 08-05-2022 Physician Order [id number] .00CD:127 Normal [facility] Screenson 08-05-2022 Screens [id number] .00CD:127 Normal [facility] Screens [id number] .00CD:127 Normal [facility] Patient Educationon 08-04-20 Patient Education Oncology [...] including vitamins, herbs, eye drops, creams, and bmhf-fcv-cfyskua medicines. ? Any problems you or family [...] You w (more content not included)... Normal [facility] Provider Letteron 08-04-2022 Provider Letter August 04, 2022 [address]TE [address] [place] [address] EUNICE MARTE 1955 To Whom It May Concern, Please excuse above patient from work. Date of Illness: From: 08/04/2022 To: 08/04/2022 May Return to Work On: Restrictions: _ Comments: Sincerely, [facility] [address] [place] [address] [facility] Urology Office/Clinic Noteon 08-04-2022 Urology Office/Clinic [...] lymph node dissection. I showed him the [facility] calculator which estimate his risk of organ [...] Erectile dysfunction (N52.9: Male erectile dysfunction, unspecified) THAHN(3) previous (1) never tried oral therapy for ED, not interested in therapy at this time. May consider in the future Discussed effects of tx on ED Orders: [facility] External Ambulatory Referral Follow-up With When Contact Information Dewey COTTO, Milvia Lucia, URL, URO Within 1 month Additional Instructions: Discuss PSMA PET scan & treatment options Patient Education Brachytherapy for Prostate Cancer IGood (more content not included)... Normal [facility] Comment on above: Result Comment: Elec tronically Signed By: Dewey COTTO, Milvia Lucia\.br\Date and Time Signed: 08/04/22 10:53 EST Reminderson 08-03-2022 Reminders - From: Lulu Peralta LPN To: [facility] - Clinical; Sent: 08/03/2022 14:08:01 EST Show up: 06/20/2032 07:00:00 EDT Subject: colonoscopy recall Due Date/Time: 07/21/2032 07:00:00 EST Reminder/Recall Patient is due for screening colonoscopy 07/21/2032. Normal [facility] Auth for Release of Medical Recordson 07-29-2022 Auth for Release of Medical Records [id number]#1 .00CD:127 Normal [facility] Pathology Noteon 07-26-2022 Pathology Note [id number]#1 .00CD:127 [facility] Outside Colonoscopyon 2021 Outside Colonoscopy [id number]#1 .00CD:127 Normal [facility] Lab Reportson 07-19-2022 Lab Reports [id number]#1 .00CD:127 Normal [facility] Covid-19 PCR (CVDTBH)on 06-23 SARS-CoV-2 (COVID-19) RNA NISHANT+probe Ql (Unsp spec) Not detected Normal NOT DETECTED [facility] Comment on above: Result Comment: When diagnostic [...] for this test is supported by the [place] of Health and Human Service's declaration that [...] Performed By: #### P TT, PT #### [facility] [address] [place] [address] Dr. Marcell Luque IntraOperative Documentson 1 09-11-2021 IntraOperative Documents [id number]# 1.00CD:127 Normal [facility] Coding Summary.on 07-09-2022 Coding Summary. CD:[id number]:[id number] G h0bWw+PGhlYWQ+ML3GNJS cV14ofADqnD3UT2yCGM0B XDQOZXOBEJ9DRB4kvXW9F RahJ3NqtaNy GongyLCkOL39WBp2NYL0o IbwSOebdS0dpOPxI3b6Og ZwCL25kG54SSixPNPrSxG 3LjZpbjsgbWFy S4zqBsSlhVSjPpo+PHRhY mxlIHdpZHRoPScxMDAlJy IriAuyNW9rZh2zKYMoRFD vbGxhcHNlOiBj j5ejLUWzCBzcRE1jeXeqU 7CxrOU3OATnv1y1Fg43zL I+JOBoSVY0eBbwKSfyh25 3EsBwd7ucXDY3 xMJjFGwfLQT8Q95lh3G2G BCmUCMtLJM9gBA0cD7ivW bymiugU9AcyPPzPsT6VMA 3yNMghX1rkEhs vtqxfE3dUlz+K96CIN6VE FRQIK8ITtz2S6QjRqfumK I+KX35EHQcWZ79rGEvnIW fg0iubRt1YzGw YIUaVSQ5zMtzRSnya7ReC MZkS60toWVuh7O7RFRokP fiaUZsJyObmYS5gI2jIWu xwolnv4cgfzpv Glrcn2inbc83hY32G94aJ DisXWOjYSM5VKJlSLFiuG ksgy7ngY5qVl9+EFmgj9c zx0twiKe6CjCl BHNokpXiuUrrXIZ4e3CqA t21X7QyzXetp0AyWhx7cn 45bKEfd8C6xDZ9GEmdMGS vfM7lDDmnVrS7 GIDaCfVizE67rTLdNHajJ x8pcRazgYnyLR8lTBVefh mxCYWheC8cCHXkbOAcfMd kFR2oXNPiusve n861CsMaTMN8KLPjwEDaB 9BrhS0pFpEsYOUjEJXfZ2 CgyCUvCSryL342EIxxZoU 6PPUwfbKrO5Mr DXEnqEfdBnV8h2K8Ir0Ip 7XkpzpmXVX6EFtmGDYmTf J3ZdJtUkX2F7ZiKom7LNN qyUqdBM7uO1Qb DVQkuuwabuitlUG8DZFrZ CMyuC47hMLzDXgvKa4jc5 M2m161RDQjKZBbzF35Dr2 udDogMTBwdCBU sE8mbwtqv6wbwsrkSmPmE LXoVJg3SYy8BWOygMmqPz WcPEE7ZtV5MNF0tJQlcM0 hpZntpzcjgY0p Oyc+Q22msF7hMNI2UNE4f ukuWHSnjeXrUL05SJ61L0 RyPjwvdGFibGU+PGRpdiB apEskOO6bEdTw y3nkh4RwBHdnA7IpGBZtX XpqDsv5YFLlRHD9cKJ9gM 0vLALrSZgnk5Y9ySU5O1D uzcZola4fh7wj ORHxRDtmP53jwGRbl3R4K SQdaXV4VWOlqFixInDeeS 93Oyc+PLGddIbsq3PrDde vw8qtg8joxQq0 AtWyZKAgpfEzjQiwOXD0g 4PgWt28X25kATeqFUBtNT ZmYHGpDFFocUtygl5grK1 wIi8+PGNvbCB3 oXY4nH6fSPLgAeP0CJzkW 694DfMcnNFzAbzjx1myj6 bpxNh6UdSgAUPfksZuyHl yQMD2d3XoZn83 G64xLHjqKKJgHHEeRNYrF HThxXkahp2mlN6pMj8+PC 9rj5wyzk44wW11aQE+PHR iFGG4mRzqFXgp PYXnfX9wPJqjMiV9REYjH hKxsU72zSFwTSyqNh1diV mctNhmRG2wJEBbnsfos90 9TnYdo6leMOLq nMUgYZabVGM3E92ru9E2Q AFuJRGoDSG1bOV1bU7yqT lnbjogbGVmdDsgdmVydGl lVUdxUSpkG611 IHRvcDsnPlBhdGllbnQgT jVbJKg9F3NwOfq1QQWrrU wkOK5pqJMzYUuaNp4deMc apEzqCP0yCDDu rwadh270MiGif9tuSGRjo RQaNNuiESH0D87df0R7PN OzIDSoKVP7iHJ0oY6szGa nbjogbGVmdDsg bqBdkVknJUufPXoiZ063L HRvcDsnPkJpcnRoIERhdG J2NH51AD56bHLia0E0bLW 3Y6TzSHLaeqjv dirmnGU3WUKxRPHmjP93A x5tnMmpKu1aSOFqKGX9DX EhxOKrB5VvuU0rPkUuNGN cSDBlK1ZfmCRd QMfzJ305PIzbGaA0ZSSuj pMyR6NjUSYpyRwmIvB0y0 E1Pp9VO8B5EU41PB17yEF vm8V9fAR3D8Aj MJSyxgevnudixLQ2QKVkT XLpbK04My5duNiiLc9qSF WzZPT8MVHiwTPoG5KvhK6 yOiAjMDAwMDAw E6AbcKAwIPyyR592VZqiQ aV3NLUujbNbH7UcMIEozV hxYjX7u9R4Tf1GGLg5GT0 8UX56kNXyh7P5 dBN7Y9IxDWJqfulhaiklm ZS2ZJEbXWLzpF51Iv5fdE cyHd0jHNBjQOA1CXQfxQS yO8LtzJ9uXaIu JVWqJKKoM8SryQCcTKqoN 857GYhjVxL9WYNcamUlB2 ExFONdgHgpOcI9j1B2Bn1 HTMFnDB41DBN0 qBB5ZA10YR57H6GtQjzqe GFibGU+PHRhYmxlIHdpZH RoPScxMDAlJyBzdHlsZT0 wEl5vSQVxNOLd aIiehTWfKxDus7nkKJOhR XoeKF4dcPuzY6TivSJ6LZ Gte7i8Vd10F21nE3MnoYX +PTCgoZV7lYY3 qW5yJkDpYkN3OUdtJ386I xXnhBYiCduki5prl2adnV t8SnG3IGQxudZdmMviFCO 9v0IyXn06Q76m IHdpZHRoPSIxNSUiIHZhb Hrxor0jbL2wDz9+PGNvbC X0pNQ0rL2kJpSnYkW3IFy sG562NdEnzMTk Fkmsg3cre9uwfJl5SkHtG TXcwaPyyWibKFE3b3OfAj 81E5LsyTlrt1QeWij8ll2 7qIDqu6B1eMJ8 O7IzIUNyvgnmvVJzvCtgP D0rVAEdwkvsJYIgwD5lWB PkR8o2GbIpQnZ8UKxoI8F trsH3VPVijSEz DRvjIHQ5T46uq9Q2AUDfD RGpWMG6rJU5iI3xdOhrja ogbGVmdDsgdmVydGljYWw cBIohJ880VCBs nZdyWLWaaM6oBZJxhNBhc WmnPR2gSGNupdaiBubJCZ RFTEJVUkcsIEpBTUVTIFI 8P1UjPav3IGCm aBuwYL0nhPMcZXrjVp1zg BtzlAloDO2xSILtvwpaDR LuyU2hMEShpSRhkMlcUO7 eIVFbtzgqz227 VxAeIUF5DCPicAQpC9Xlx K7zNxJkXVAkOTKeV7CrlR ZsMAduV053BKxmIaZ7UIC jqdGdV9UlXFGo pOquYdU5h7O8Cy0mZw6oT A4gXKI2TK81YY69mHRcp3 W8jOW2V0GkGWXqysrzuml sdUM6XASgPVHc lB01sOCgSFouSs4pg2V8c 792WEBdKQJrxY66Gp7sxL byGOBzkAYLzU6nnctnh8u vcjogIzAwMDAw QZj7FTu8SRObeHgpBvFwE ZJ7VmB7MXN7mSCrfB2geQ ajpkbnsZ1mGva+NjYgWWV cgxD4X4EiGoe6 CKPidPnvFE9pjGCsWTvoV u6xaPqjmPzqKQ3cALSces mtLZNfsE2yTGFbcRRmcEx kKQ5zWIHlvnnq f544SlQzYIX3PGGkxUGoC 4TklO6gYcZmFMAdDMHmC7 CwnGIsFUrxW543MVhtMeF 6EXTsllVcL6Uq MGYdgVuwVkD0b1C3Gp4MU KugLM45HN42rUZar1Z3mT I9W2HeWYCojvatzkmvwWH 1PEFrQBMspO84 qJKcIHbrMt8yh9F0m807B FWmPCBowF22Im1yfOaxBY UfpITGiK7lzwbws0bnhhi gIzAwMDAwMDt0 QLg1USRudUoxTfLeZQT9N rT5GFQ8gNVmbM8hiVmryj nlpH4uZiu+NH9nvHrauU8 kcZ3CGE2xCQFt zKFIjDZhFMD4OH30KI44N 3RyPjwvdGFibGU+PHRhYm xlIHdpZHRoPScxMDAlJyB nnQytNQ7qLp1i ZGVyLWNvbGxhcHNlOiBjb 7stJFDxPBnlLD6wsHbeR1 VxpYF8EKZsg8h7Xm75W00 vQ1CdvRY+PGNv lAK1iEU0vY2bOmGdJbZ9O YuwA421BjGrbOLpAfclq1 sdk5ttaAj9EpNjWZQexeX qnCxzRBT9i3Po Hq96F09uUHaxPDHkQIInF JYlAWXfvDdioo0mpP0gGe 8+JHSgyZH7nYJ6tA1vFjL vPdD2HQssM651 ExTugQNlFmckP01dB4Mfa XA+MLGeDij7PEXlcVvzIQ 1axKTvJYirVf6xPGB9RoJ dJvReKNriG7Fh PMOmxmaxaoajrDB2FXPqB COijC30Gm4enVydIb5fKY RnEHZ6UKOzxPKgG1NczP5 yOiAjMDAwMDAw N9DwzVRfEFmpL931IZcgS yA0UDTwjpSnK7ByOQNnkU qwVhU6a1V7So5UeMptcFX oCI3nOdDvQYi3 J3MyYxu4PDTzdWbxLX8lb XInMTyfHp9azBnplRgxGD 0mTJXdeiyzk059OaYdf4r kIDEwcHQgVGlt GXW8C78bt1A7INXmYDSsT UD7sGZ5hX7duEubiacydV VmdDsgdmVydGljYWwtYWx yO548FZYyyDoa SyEFCtz2L9LsNiu3SIYke GiiCQ5unRSgEVbsFa3juA pfeTuaNM6bTLJhjlgzl93 5MuHgd1ixIHZv xQZxVCgiTQX1N74jw1R7V RUbBYWrQRM8wQH5pA5qhW lnbjogbGVmdDsgdmVydGl nUFptWUorT679 PTYwsYkpYi1AQpw1I4BeN hm5NEYdaSzjYO3rvBMaZT jvBg4frDdpvVkuXQ1tXPM eontqb166ImVn n7jdUFOtwYMjZLmqFPV6U 89jh8V8GQVmFAUfLKC1hG D3pZ8vmLviszxjtJBqiMs gdmVydGljYWwt GDwxX676HFDzlUijQbPja WVyOjwvdGQ+DY97ms57G2 AyIjdhBvq6CQRcUQF6xBC 8mL8oOFVwPUux c3R5 (more content not included)... Normal [facility] Main OR Intraoperative Recor don 07-09-2022 Main OR Intraoperative Record IntraOp Document Type FT Summary Primary Physician: Milvia Palomo MD Finalized Date/Time: 07/09/22 13:38:52 Pt. Name: EUNICE MARTE /Sex: 1955 Male Med Rec #: [id number] Physician: Milvia Palomo MD Financial #: [id number] Pt. Type: A Room/Bed: [place] [address] Admit/Disch: 07/06/22 10:08:27 - 07/06/22 17:20:00 Institution: [...] Erik Lynn RN, Kimberly Y Role Performed Gluer - Primary Gluer - Primary Time In 07/06/22 14:55:00 07/06/22 14:55:00 Time Out 07/06/22 15:17:00 07/06/22 15:47:00 Procedure PROSTATE TRANSPERINEAL PROSTATE TRANSPERINEAL BIOPSY WITH ULTRA(.) BIOPSY WITH ULTRA(.) Comments ORIENTING PRECEPTING Last Modified By: Katherin RN, June Pandey RN, June Chiang 07/06/22 15:47:47 07/06/22 15:47:47 General Comments: PADMINI WILSON - FORTEC REP. Quinton RUIZ - PERINEOLOGIC REP. JOSEPH, follow up rep Protocols FT Pre-Care Text: Implements protective measures [...] Out Adams Blanco DO, Scout Given Participants G, Dewey COTTO, Milvia Lucia, Mahsa Correa CST, Sweene, Terry T, Katherin STEEL, June Chiang Time Out Complete 07/06/22 15:08:00 [...] and tissue Entry 1 Skin Integrity Intact, [place], Warm, and Skin Abnormality No Dry Outcomes Met? Yes Last Modified By: Erik Lynn 07/06/22 15:10:56 Post-Care Text: The patient is free from signs and symptoms of injury caused by extraneous objects Patient Positioning FT Pre-Care Text: Identifies physical alterations that require additional precautions for procedure-specific positioning, verifies presence of pr (more content not included)... Normal [facility] Postoperative Documentson Postoperative Documents [id number]#1 .00CD:127 Normal [facility] Coding Summary.on 07-07-2022 Coding Summary. CD:[id number] G h0bWw+PGhlYWQ+AI2RKBH xK02gnMTogW1BQ7oTYS8Q UKUCMUSHCD0KFH5pfJP6I GijP0HrphKz IylrmAPwJP36AOl0GPF1u MyhGBxwlA8ooGLhB1n6Bn RsXZ14kE95IFcdAJRgDsP 3LjZpbjsgbWFy T1mmCkOjqOIoIhx+PHRhY mxlIHdpZHRoPScxMDAlJy UrvJinIK6oSq2iLRScROX vbGxhcHNlOiBj s0trALRsNRgjIL4rsSxiL 2GmbOU3BFFgi7z6Ip24sH I+FSNfMWH0nEnbMOmhk00 3HvKer2peOTN0 yYBcSKdePIE5X32zs5E6G FXuDNKxSSZ1hLZ1uZ6yzK lyyoifV8BonDSqWwC7HNU 7eSMnnM0ilFcw ghpmxE3eEgb+K01CWS8EA CYLKM4GLnp0M0HaIyvneB I+XK97FCLiFG74kYRhnVG px0nniKv7VeKd AJXuCYQ4rZkgCSxhl1OcQ MLlQ26rtUHun8C7IUIjjP pgwDIuDuVqlAD6zV6yHEg vjxazx4ppcmay Wglxq7oclz29aK94T72zQ KzzFOPsVWX8WCUmZNBbvD uawl4boO4nIi0+JLvvg7u kr6kaxLk2HgXf MFUvxwChnOfoHDY6x8KlJ u46Q8TrcOrmh9WcBci6ao 29zIWdt0Z6zVI7TOmpAMZ jhR9zXXowQhJ9 LUPmPuNckM21jLPcGTxaG m9fwFddpRqgYV3wHJTwcw ioCLBuqN4vFJBrmLThiEu bXA8uQROfdsoa d388PuPmXYK0ZHKahDSmG 9XfrI7tIlRaAEUwNGOjO4 JfbBFfZKflU892WEipIbQ 3YTUctyIqY6Ds DZIeeDuuFyF6x4D5Dc2Ie 6OqexojTRA7CUpvQKVoDs C6DgIbWjL3T8GfVjq2SVN jsFxlOY0bX7Xw CIGgkclazdmanKN1IYSnP WIhoG31sNFzTXbkBh8cj8 O3x170OTGcIORoqH51Nb2 udDogMTBwdCBU mF2pileep1mfpfqnFxTwE OPmNMz1IHk5ZYJofSedMz ItUZO6CkQ7MGM4yFDcnE8 fcMlysjideF2a Oyc+B88zuV0bQDH2GIH3o hqqAKDlorHuQX65GN02I3 RyPjwvdGFibGU+PGRpdiB bfEchNE6yNnAl b9tme7AsHKuvW4ZaQYZpV UocQkg6WRRoUEZ6iQH8oB 8eQUTwINckq9D0sKZ9R7G efzCrbs9lp2et SFDvRVogS59jwLMkr0N7Z VGnxTI3FRPbaYnlJcMcqL 93Oyc+WHIjaAfhl8VgPjc ne4gbd2wefDs4 DbJxZVNlerLlzWzyUHG5t 8JuTj80I59eATqsPEDbCK WaAKUiZJZceAdavn6vsH2 wIi8+PGNvbCB3 tTF5jA6wXETsCmN6NVzpS 667AqVbgJLoNjqfn7lbv6 ydhWp1ApQjSPRbopIhsFa jKCZ6d8ScKm93 C25mKJzsPIHxOIMsJPLuT CBpdQozsv1wbG4hGv8+PC 3tr1ivbu35iY60lEJ+PHR nIFL3dUnrSXby CGWvbW5jCLpbMfV6KYKxS gZciW62lFLiZVavAg0kvE xukUswKQ6qFPFbotnlb31 4SeTnw6saNMHa hUMuKDqoFLY3P66kg6Y4O JPlGXMnHTY6qUN4sT0cfN lnbjogbGVmdDsgdmVydGl rYZadOPcwN260 IHRvcDsnPlBhdGllbnQgT tYpZXu1G0KcKao8WDUcrO tiMS5mkVFkCVyiIo1kgSh ilMcvVS0hJOJi ptjxo406KrKlc8baOBSux PJxTVovWYM8U46ie3X5UV MyVAPqTVA1dZB3mS9pzTs nbjogbGVmdDsg wrUjhQiqFFtuOYvvJ943A HRvcDsnPkJpcnRoIERhdG B9UZ41KT82kCDgx2V4fQA 1Z3SdBRFntnqi ypzkmMP5XTObNOXybP22K p4cfIbkPe7sVHYlAOD6VM BurSAuI8JwsM8sVrLvZWZ wZVMmK3YlnXXe DTcmW798MRffSgU9SIDgc uYbT5JpPQQzaPnrPhC8t6 E3Uj8ZU5L8OZ48QZ02qBW ar5F3qKG8Q1Ld DLRqokriowaekKZ8GDKvQ NCmsJ67Yo1lvNsiTk3fGD KgNGW4CWXgsSGmK9FwzU2 yOiAjMDAwMDAw E2QrwSYbIUntB356BUugZ rS3UXGqhpSeR1UoNIXqpF nyQaH5a9L6Zw2URNg2CH3 4ON13uEZuu1S4 wQL7J6DaJSOtdhfabkwrs EO4HLArIXBlzA75Rl5iqW qbXk4mOTLcKBN5AETgwCX fY4QepL0xTuGd BWUxUSTvZ5JozKYrDYgjL 250XZfmMaU9EREgsiGfW1 YtGJJmnOivOhJ5e6G9Ps6 BNREoPW45IWZ0 vQB0FQ88EP62M7PdOjutp GFibGU+PHRhYmxlIHdpZH RoPScxMDAlJyBzdHlsZT0 mCy3tGRIzJVLi kAsnyBIxLyDez6skHXUjM JhwDQ8ozLzvB3XayRV2YT Flc8i9Hz16R53jO1ZtwII +SYKqmJL5uFL1 xI5nRtJiNkJ2IXkhH416L oEmtRAyBzxjz5dmh7mpdF o5SxF7RIJqvwFisRmlYCK 6m6CaUv26B81w IHdpZHRoPSIxNSUiIHZhb Pfvjd2ijY5hWm5+PGNvbC Z8yID2kG7uZfMaMbV7QCz lD293VzHnaYYh Ppzow2cgl9jcnLz2PlNdY HLdbcUczBpdQHU0a2WqLe 15J1PwoXgqe4IyCob1pu5 3tLJca2Z4kHD5 H9GbOZJylmtavRAuqOglD K7cRASkdslxHESyuG6nQG SnI1d5SxWhTxF3AWxgL7T njmI3YHYmwFGk RNnpITB8W38xy2J5QTIhA HLmSEX4lID6jZ6xlEzbud ogbGVmdDsgdmVydGljYWw pRAfvQ379GIIe aFhaQRVyaX1yLGJhyYVbm AsgTL2yCGNsjnyuGfqQRN RFTEJVUkcsIEpBTUVTIFI 6Y9SvXby7QCRv uAkxMC5xpTCoDHptSb2mo SpbkMvzMN3mNFExxvrqDK LmvM8zVTWqgBVfaDflXL3 iCALdgbfwl021 GfAqXLR3AXQyjLKfR9Gsv H0sJwPvAVCmXRAwM9PafF ZrLAxtX947BHwjTwE6RQU knrNvD4PiMNRs lHviMnK0c3A7Ie2rEo4bF P1vXJJ7MD75EQ66uNVss4 Y8cLK2C4PhVMUuyrinaot nsEG1JBFcARAk eH71uOAmHCthJx2eo8I3u 941WCJeLWJlkP89Rj8moB rrGMEvbPITyX0rcmjxe6u vcjogIzAwMDAw HRt9ASo5LCMkpGgpPnEmY WR5PkC3WVI7dDXhiM8fhG fzwppmiM4hXrk+NjYgWWV zndV7C6XyIvj1 OXQmuOgeGG2mgQAfAIivW y1lkUlrcXngUW5iWHQzam xeTFQniE2wIPRmyEAgrMq pVK6aBJPabwoz k181UiCdKBL1DKDqdJEuB 3AzkU1nZpOwJAKqHGLkS0 RutLKvNRwyZ142CKhzKzX 5LXCevxJyO3Bw EFPviRhqBhN2e8C2Rf4BX DzpJA98YX49fIInn8L8uA C8H3YpBUOygiusuctssUF 7BFBgWWMwuI15 yBJrBRvwJk9qo8P7j279D KFkZEGahQ99Tx0oqTdnFK JmuZOGhL5zqhshd2xblhk gIzAwMDAwMDt0 GJf2XTIlcSkwIiTvJUA3T dP5YSM0sIYdwL0boTsmvr krzA8rMtb+K0U3dHS6mSV udDwvdGQ+PC90 nm11W6GaOcrlWoh3OSSnR HW6sNH5zV4pCHIoXTokp1 D8xPG7C5HrbkYixf2ki9u rRLHaHCpvG48c kPOqk3W4ILSvrTW0LQCju LjzVmFrpX56Ild+PGNvbG vnw9BiQsaan6isz6ujwRx 9IjMwJSIgdmFs bUahYMK1k9PdAr26F11aS HdpZHRoPSIzMCUiIHZhbG mvdd3zxK2cQd4+PGNvbCB 9yHL0pB9tMvEl VeJ9BCovH035OrQevRDeC wgtn7evf4lnkYc9PmVqYR GhgySgfRztTCM1q3OgDo9 2E2HtyCwkr2Pb Kvu7cz97aUHpv5Q3cJE9J 3BhZGRpbmctbGVmdDogMC 4fZLZbwajfPGCpzC7qTON dG7i8DmUaPvK3 LGasV2OqouM7WNSrsKFdP QRxpZRLfV9qkmnrd7mmet eeAeSbCFVwFBo0RWt9VKJ saWduOiBsZWZ0 OwE2GMM3qPKftV1kgDegv hmlwG3aHrn+HHj9c5lprE ZdSU5lxKQ6JV88KL15fFS dd3K6uZG4Z1Nt LSEgaulmoqyvyQN3XCDvV TBbyE42Rd6ncColHo9mIJ ZhUEQ3ZAQjgQDpT7FkrD9 yOiAjMDAwMDAw A7RslYSsOQlqM237MEnuJ iC6HLHkyzYdS9FnHGXrbN cjYsR0q3T4Mc5YPK81YS4 3QK35mVIpd0Z0 hDH4O1MrWHIpcftdovbha FI0IOMpBHHxjB44Xh6joG ybLp5mVFQnGGK4HBPohSZ yE3TwrX8eAeBn NGXoFHOxA6OygQVnXOboL 927NQuaAmF1NUOvbxNrI8 HuQAOhsVyxSlD7a9V8No7 LZm47CK61RH00 mHPot4D0nVI1Q3DnOPTvg kchniwibRQ8KEZlRUPyhV 66My4rfYdxBe1dJVWeJWX 1ICPyqLDwT8Nz bR6aVjUgOTZxOUHwL7Awf WUhMBrbR782ILcqKhE6IU LyczKtH1GdEZSnyMpfZtX 0n2H5Ar4OOBcu lnd5E0MzVgqlgMB+PC90Y BIiGF92kHPgjEGna5dviB n1CoTtFLCaAYT2hXrrCCn qh5UbCEZrZ99u bGFw (more content not included)... Normal [facility] Consent for Anesthesiaon Consent for Anesthesia [id number]# 1.00CD:127 Normal [facility] Consent for Procedure/Surger yon 07-07-2022 Consent for Procedure/Surgery [id number]# 1.00CD:127 Normal [facility] Discharge Instructionson Discharge Instructions [id number]# 1.00CD:127 Normal [facility] IntraOperative Documentson 09-06-2021 IntraOperative Documents [id number]# 1.00CD:127 Normal [facility] IntraOperative Documents [id number]# 1.00CD:127 Normal [facility] Preoperative Documentson Preoperative Documents [id number]# 1.00CD:127 Normal [facility] Preoperative Documents [id number]# 1.00CD:127 Normal [facility] Prescriptions/Work Noteson 09-06-2021 Prescriptions/Work Notes [id number]# 1.00CD:127 Normal [facility] Capillary Glucose POCon 06-22 Glucose [Mass/Vol] 216 mg/dL High 55-99 [facility] Comment on above: Result Comment: Jluis SANTANA Performed By: #### 2 [id number] ####[facility] [address] [place] [address] Glucose [Mass/Vol] 233 mg/dL High [address] [place] [address] Comment on above: Result Comment: Jluis SANTANA Performed By: #### 2 [id number] ####[facility] [address] [place] [address] Glucose Cap <[address]normal [address] [place] [address] Comment on above: Result Comment: Repe at Test Performed By: #### 2 [id number] ####[facility] [address] [place] [address] Consent for Treatmenton 06-22 Consent for Treatment [id number]#1 .00CD:127 Normal [facility] H&P Updateon 07-06-2022 H&P Update [id number]#1 .00CD:127 Normal [facility] Inpatient Patient Summaryon 07-06-2022 Inpatient Patient Summary [place] [address] [facility] Clinical Discharge Instructions PERSON INFORMATION Name: EUNICE MARTE [facility]#:[id number] PHYSICIANS Admitting Physician: Milvia Palomo MD Attending Physician: Milvia Palomo MD PCP: MARIE COTTO, ADILSON Discharge Diagnosis: Elevated PSA Comment: PATIENT EDUCATION INFORMATION Instructions: Post Op Patient Instructions - FT (CUSTOM); Post Op Patient Instructions - FT (Custom) (CUSTOM); EU - Transrectal Ultrasound of the Prostate with US guided biopsy Discharge Instructions (Custom) Medication Leaflets: Follow up: With: Address: When: Milvia Palomo [address] [phone] Business (1) [address] [facility], [place] [address], [place] [phone] Business (1) Comments: Office to followup appointment in 2 weeks for pathology review Type Location Start [facility] 9:30 AM 07/21/2022 9:45 AM Confirmed [facility] 10/12/2022 10:30 AM 10/12/2022 10:45 [...] needed Other (see comment)., skin Comment: Normal [facility] Laboratory - Chemistry and C hemistry - challengeOrdered By: Balaji Collier on 07-06-2022 Glucose [Mass/Vol] 216 mg/dL High 55 - 99 mg/dL [facility] C POC Subsection Comment on above: Result Comment: Jluis luna RN/ Glucose [Mass/Vol] 233 mg/dL High 55 - 99 mg/dL [facility] C POC Subsection Comment on above: Result Comment: Jluis luna RN/ Glucose [Mass/Vol] mg/dL Invalid Interpretation Code 55 - 99 mg/dL [facility] POC Subsection Comment on above: Result Comment: Repe at Test Main OR PACU I Recordon 06-22 Main OR PACU I Record PACU Phase I Docum ent Type FT Summary Primary Physician: Milvia Palomo MD Finalized Date/Time: 07/06/22 16:28:27 Pt. Name: EUNICE MARTE/Sex: 1955 Male Med Rec #: [id number] Physician: Milvia Palomo MD Financial #: [id number] Pt. Type: A Room/Bed: [place] [address] Admit/Disch: 07/06/22 10:08:27 - Institution: Case Times [...] By: Chen Ramos RN 07/06/22 16:28 Normal [facility] Main OR PACU II Recordon Main OR PACU II Record PACU Phase II Document Type FT Summary Primary Physician: Milvia Palomo MD Finalized Date/Time: 07/06/22 17:20:35 Pt. Name: EUNICE MARTE Quinton Iniguez./Sex: 1955 Male Med Rec #: [id number] Physician: Milvia Palomo MD Financial #: [id number] Pt. Type: A Room/Bed: [place] [address] Admit/Disch: 07/06/22 10:08:27 - Institution: Case Times [...] Signed By: Yissel Arellano RN 07/06/22 17:20 [facility] Main OR Preoperative Recordo n 07-06-2022 Main OR Preoperative Record PreOp Document Type FT Summary Primary Physician: Milvia Palomo MD Finalized Date/Time: 07/06/22 15:10:00 Pt. Name: EUNICE MARTE/Sex: 1955 Male Med Rec #: [id number] Physician: Milvia Palomo MD Financial #: [id number] Pt. Type: A Room/Bed: [place] [address] Admit/Disch: 07/06/22 10:08:27 - Institution: Case Times [...] Signatures Signed By: Erik Lynn 07/06/22 15:10 [facility] Monitor Recordon 07-06-2022 Monitor Record [id number]# 1.00CD:127 [facility] No Panel InformationOrdered By: Balaji Collier on 07-06-2022 POC Device SN [id number] Invalid Interpretation Code FT POC Subsection POC User ID [id number] Invalid Interpretation Code [facility] POC Subsection POC Username SD TANNER Invalid Interpretation Code FT POC Subsection POC Device SN [id number] Invalid Interpretation Code [facility] POC Subsection POC User ID [id number] Invalid Interpretation Code [facility] POC Subsection POC Username SD TANNER Invalid Interpretation Code FT POC Subsection POC Device SN [id number] Invalid Interpretation Code [facility] POC Subsection POC User ID [id number] Invalid Interpretation Code [facility] POC Subsection POC Username SD TANNER Invalid Interpretation Code [facility] POC Subsection Operative Reporton 2 Operative Report [...] perineum is prepped with Betadine solution. The [employer]ro[employer] fusion biopsy system was set up [...] . Impression and Plan Diagnosis Elevated PSA (XNV59-VN R97.20, Discharge, Medical). Diagnosis Elevated PSA (VXW83-LM R97.20, Discharge, Medical). Counseled: Patient, Family. Normal [facility] Comment on above: Result Comment: Elec tronically Signed By: Milvia Palomo MD\.br\Date and Time Signed: 07/06/22 16:17 EST Outpatient Surgery Discharge Instructionon 07-06-2022 Outpatient Surgery Discharge Instruction [place] [id number] Patient Discharge Instructions PERSON INFORMATION Name: EUNICE [...] Address: When: Milvia Palomo [address] [place] [phone] Business (1) [address], [place] [address], [facility] [address] [place] [phone] Business (1) Comments: Office to followup appointment in 2 weeks for pathology review Type Location [place] [employer] [place] URO Office Visit [facility] EU [place] 07/21/2022 9:30 AM 07/21/2022 9:45 AM Confirmed [facility]/12[facility] 10:30 AM 10/12/2022 10:45 AM Confirmed Pharmacy Information: You may receive a survey from [employer] asking you to rate your care experience. Your feedback is important and will help us understand what we do well and how we can improve the quality of care we provide to you, your loved ones and our community. It?s an honor to serve you. Thank you for choosing [facility] HERE ARE THE MEDICATION CHANGES THAT [...] gone. Tylenol alte (more content not included)... [facility] Patient Education - Texton 1 09-05-2021 [...] for your post-operative appointment in 1-2 weeks [phone] or [phone] [facility] Progress Note-Nurseon 2021 Progress Note-Nurse In [...] is out of the anesthesia guideline protocol. Ruf[facility] Progress Note-Physicianon Progress Note-Physician Patient: EUNICE MARTE Age: 66 years Sex: Male : 1955 Associated Diagnoses: None Author: Scout Lamas Jr., DO Postoperative Information Post Operative Note: Post Anesthesia Care Unit. Anesthetic utilized: General. Health Status Allergies: Allergic Reactions (Selected) Moderate Penicillin- Unknown. Severity Not Documented Labetalol- Unknown (origin). 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 Elevated PSA / SNOMED CT 9597351339 / Confirmed Eosinophilia / SNOMED CT 8849127456 / Confirmed Erectile dysfunction / SNOMED CT 2942116912 / Confirmed GERD (gastroesophageal reflux disease) / SNOMED CT 768040555 / Confirmed Hyperlipemia / SNOMED CT 24600059 / Confirmed Hypertension / SNOMED CT 3567242873 / Confirmed Incontinence of urine / SNOMED CT [id number] / Confirmed 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 Plan Transfer/ Discharge: Condition stable. Normal [facility] Comment on above: Result Comment: Elec [...] Daily, # 30 tab(s), Refills(s) 6, Pharmacy: [facility] 1429, 183, cm, 04/21/22 11:40:00 EDT, [...] Bladder problems triamcinolone Top 0.5% Crm: 1 zach, Topical, TID Other (see comment), Refill(s) 0 Histories Past Medical History: Resolved Stroke (193815468): Resolved. History of CVA (cerebrovascular accident) (9255795128): Resolved. History of DVT (deep vein thrombosis) (8240524778): Resolved. Family History: Diabetes mellitus Mother Sister Hypertension Mother Sister Father Diabetes mellitus type 2 Mother Hyperlipidemia Mother CAD - Coronary artery disease Father Mother Procedure history: Transrectal biopsy of prostate using ultrasound (US) guidance (8552206253) on 09/08/2020 at 64 Years. Colonoscopy (781812567) in 2011 at 55 Years. Arthroplasty of knee (21412425). Arthroscopy of shoulder (888454161). Insertion of catheter into spinal canal for infusion of therapeutic substance (2976381036). Lumbar discectomy (545067724). Comments: 06/25/2022 15:29 EDT - Lulu Peralta LPN L4-5 CE - Cataract extraction ([id number]). Social History Social & Psychosocial Habits Alcohol 06/25/2022 Use: Current Type: Beer Frequency: Daily Substance Abuse 06/25/2022 Risk Assessment: Denies Substance Abuse Tobacco 06/25/2022 Tobacco Use: Former smoker, quit more Smokeless tobacco use: Never (more content not included)... Normal [facility] Comment on above: Result Comment: Elec tronically Signed By: Scout Lamas Jr., DO\.br\Date and Time Signed: 07/06/22 14:09 EST Outside Radiologyon 07-05-20 Outside Radiology [id number]# 1.00CD:127 Normal [facility] Coding Summary.on 07-02-2022 Coding Summary. CD:[id number] G h0bWw+PGhlYWQ+XY4HOMF jM50fdZMnuX6GG1cMTD4I GBKHGGXLVW0FZM0foSQ4R TmsW0XwgxPw AmhcjOSnOR80UIg4KGU1t ZylERlvvM2ctUHyX3r5Im XdQU90kW76VJfwYDTgJxZ 3LjZpbjsgbWFy R8wwZbXyiTArQnk+PHRhY mxlIHdpZHRoPScxMDAlJy SkzRxkOC7vHm6tZPRsYGP vbGxhcHNlOiBj s7nfWERbBDriIL6cnNxzI 5ZvdDT5QBHur1h5Ex38fI I+KKLfYTT5nYsxKNsvo10 4AlVbm9iqABJ5 vLGwZBfqHDC7L60rs8F4W HIfBTIuVLC0lAG3vY8ilF gwimnyC6LocKXmBeI7VEH 2eZZpkZ4ppNas xijsxM1yRqd+M65OGY5EI FKJDN8CKlf4G2TfXlvpeJ I+BH62WWTaMN00mFRwlLN dy5chwOx0OoSt KSKmHCP2cXviYBnsp7AyI CQeS11mmUOes6V4VJNqhQ makYDkHwCpaHU8uV0kKPx jnqemn1koyqfw Pwear5eypg56bE24K34hK WlzVMWjRWF7IFUkVJYmkR wuvp2hjW2sGa8+JUsva8r bf2wvqGi3RjYd CDAggkMmqLqtVIQ0b6TgR z16J7SwtNoqu8QaZef5qt 95rXKde9I2uQV2XJqnXPA yhY6yDWlxYiX2 OSJuQxLjdU79aLYfXUddO r6voXxenNbzUJ0bFLUlxv nvWVLujS7eUUPkkWGtfMz gAH3mEFTkvklz r073GiCsICE0MMLhdAIzF 5KtrZ7rNkRvLDWtINBcO6 YcaVEsQXtbT971RDcsToT 1TDYwhiFgX3Ub XXOubNgfQzX1g0S2Pg3Ns 5IfndugVPD7OQkxJUToPa ObKmFzEcZ1T4LkGmx7DAS hgMzqZS5bZ7Jw KXXqztajvwxebXZ5RAIgL QPcfK26tJTeZBhkTo6tn9 R0b024FPIeTVGagI38Rp0 udDogMTBwdCBU pO5ckesgp3jyzcmcBfFqY ZBlZJp1SNn8OUWhqUsoKd WhPAZ4KbE2XQS7dFJshT1 aqStvkvjgzD6l Oyc+P86ltW5xNUF3LYB1e jmcOPAumzCyPH56FR17Z2 RyPjwvdGFibGU+PGRpdiB pfIokVR5fHzGk z4vit4AsZErnF9BlXWErX BwdCxy7VZJfZGD1tRA8fO 7dKGJmFKuzv5P8bXO4Y0M rnzJolv2jz7wg NGWhTQjrW90bsJCfh2B2T WPtyQR5OIIeqPepSgQcvD 93Oyc+AYRryWfaq0EvLek rs9elu1ynzPw1 QqTeNCVjscHxgGmfAEW2w 9QyBe10K76bEXumYUEjXF PfUGYzESZklPmxxt2qjJ8 wIi8+PGNvbCB3 oIR9iV4tMEObLaK1KAkrP 043JjGydVWwGwuao6zdw3 sixRl0TwAhOFZoibFzxRk yGHD3b5UiZt43 B37rRZcpLFEdNJFlLQRjE XJoxUtfrj4mlY0mSl0+PC 5rm7ghmt27hQ37eQL+PHR uSXJ0zEmiYPij DDWwsR8nPShyPqO6TRVrQ cEryD69lMNfCMapZt5pqB cjsMvoBS8pOEJgddgus97 3ElMyv5ysIBOy cZPfIUgzETE8V26np3V2H TSyMPBqDBF7yNZ1pX2ovO lnbjogbGVmdDsgdmVydGl qMIfsXUlgY240 IHRvcDsnPlBhdGllbnQgT kNwZPl5G6XiXgx0WGFeyC vdDL7vdBNuIVjdEv5ntFk caDiaZP6sYEUw rqdlj507HwTiz6uoTKWyu VFwKNadAMO4B49oc1Q0UI LwVZYhMPJ6hLF8oU5ckDz nbjogbGVmdDsg seEjzIxhITwdOGdbJ158G HRvcDsnPkJpcnRoIERhdG J9HA99JM52zNEqx7M6eKO 0T8PxQPOwuhkm lptgxIC4BYQtLCBozA92X s5pbViiBd4gJGQuUIW6JK HxrMAzC1XiiK4gTfSpMPR lIZPkP7FseUNk HPwkZ372REjaXoZ1GLRij cLrS1XkLYPhdEniBmF1t0 O0Zg1UH3D7TJ10ZP50qAK ul3P7nYM8I4Ua YSDcufzqldzngYT1VAYxV DDxeO13Ow2uzGkkIn5wHH HoVQE2SMGlfUVyG1ZvzQ1 yOiAjMDAwMDAw C8WmhKNjNPokS699PDxtB uV1MSDdxfKbU3EeLWXueE mrZfV4t6H5Up2JZFo0UX7 0QU71fYRhy0X7 dDQ7T6GnAQFpiwyuizpsa NG2NMJzRAPhoE03Bo3sxH afUo6zENHuTMV1PTQctMG qN3KbnX1uBvWk DFTlJIHiP8McdIAeBQymA 260AEuqWiJ0MIPqywTcZ8 XdPDBhcCmqHgP1g9T2Sk2 JAIAwQJ65SPE0 bXQ5SX45XI36W3NlUgbkv GFibGU+PHRhYmxlIHdpZH RoPScxMDAlJyBzdHlsZT0 fSc0gSKHnMROf kDidrUXvWtJjq8aoKOGsL FlwLG3ouLpaC4FmbJZ7PQ Uxx3f3Eo37S61fN7SpgGF +AKNoxFM1qLC4 vT6zOzHsMdE8DPzmD257G oGmdPGlRvfsg1otr7ztaW m9UiQ4VEDtuiIvzLwnOXQ 1h4NtWh20U12f IHdpZHRoPSIxNSUiIHZhb Opwhs9eyF9uCs7+PGNvbC J6eUT9gU8jJjHtXvB3ALq oN929ZaYwwTRg Yctjt0cxl9rrfZu7KjUdD KEukbIabBioXFT9y1IeKt 89R0IonWajq4FzRfi8gj7 4hSJsn9B9kKT3 R1OrGKVrwnunxABzuMlaX G8lYMXcjiidLENjmA7nKU DqE5b6OhRrInM2WMdxC6E yrtQ8OOIywAXm TMypOUU2N42ol9Q4UJRkG BWeSUT2tNR1pK2vjPkpob ogbGVmdDsgdmVydGljYWw uUAxkE700FTWc aFqiNRMkiF1dHPPmcPFkk OlxDZ4yZDDnqoouChtQHL RFTEJVUkcsIEpBTUVTIFI 1E2CaZaf5IYAg nEduSS3woXUrIKwsRd5zn OggvUpqYF8qRCTlcxbdKP AycE7sANOglSSeyVgrQE5 iOPPdvmoku689 IeAtGSX1YYAhgLCuH5Ifd Y9xMuFsPRPxLWSyS1JygZ SpPErnS867OIfqJtW1WXF dbnLnY0BhWLMg cMsoVhB5n0S3Pa1bKx7mW D6fXXD5HP70ZS70sLJvc4 R3kLD5B0SqMVDccfsvcbr jnMM6HUFsDXHr wM08iXYjSKfxCr4to8M1z 111IFApYDPmzH39Ko1yoZ ibFPJdoOTQwX1gmvajq7v vcjogIzAwMDAw YXw0UDq4BISfiEfiQrMoF NN2EgY6HUH5rFUijL7daD djrtpdzE0aQpz+NjYgWWV hwrW1P6FyWbg6 JHQpxWawNC5ffXGiKUdqT o7gqAzudBrrVS1cIJXeqc tgVDGhqJ3mEYFskGRqeSf cXH5eRSPmihls r198EaVhWDW8JGUnkBWcV 0UdsG9oKdXaNELmPWSmZ6 QuoHYjSJauZ780UMwvWhX 8XGEcoaJuA8Jm SJIazLrbCiS9s5I0Gn3XI SciDG28WI82kAMqk7W0oD V5B5LzJOVkukbrzhayvUR 4REIjFOTtyB32 jOUuFHhrZt3do5R4l433R HBbKTTjgO05Ff6klKqtKQ VaqBLSwZ7fbbbbg6robzf gIzAwMDAwMDt0 PHu6NGGwuAqqBlTdZES1O oW4DHE8bATudG3ccKtdfj yvkY0xXcl+UmVjdXJyaW5 mDK67VY05Z6Qp PjwvdGFibGU+PHRhYmxlI HdpZHRoPScxMDAlJyBzdH uqXZ2sPi4lFJNyRQKjtOz apMXwUaZqx8lt LROzPCaqHQ5apWffA0Ffw HI5AJAbo3b4Me21U39gL2 JvdXA+TZBhdBD6uSW2zP4 fPwCaKoG3TLhg V310ViCapGKrIxqxl2tqa 2ajqWd5TeYiARYmynJlhF sqVGZ7k7QfSc40S72iQZv pZHRoPSIyMCUi XUHejWeurh5qdK1xXk2+P DOghCM0iBD4fE7lJhNwHv H4ZMscQ821EuOxkBCmAvf xP73kJ3JzgAY+ APQcTni5RWVlxPgaCK7ai RXbKBerBl9lYSF1IqSrUk DnEGkcV6LuHQAbhaujfhh ixBQ6XHPoCOJu nJ06Wt2mzFnbXw3dJUPsT NQ6CZJixWMhP8FmyH9hWw DwQKViLXRvJ0KaeYAdKHs hB407LJbrBuM2 LVQexbNuO9JgZPVroLpdS dH8x1B1Cw7EzYjqrYSpCI 5rVtKrMDl3B7WcVto5NVK peHnhXA2mdYMh SAwzKt1oeNiktQkiEQ7vJ LFxpiava308AvOly1pxXW EtyMOwYYgaTRO6K62nv8B 8VSGfEBGsZDR8 oAY9hW1mhJugdwcnrWPem DsgdmVydGljYWwtYWxpZ2 81MDRgxOsdKdQLKyf3O2C wLsy8ZHEdbBro WZ5ipBQnBZhhGk8gtKtoq GsyWL5xRCQezkyfh856On Jlt0isZKNilIMsADlgLFE 7P15hf9M5LLEi OWUgFZF0lBB3kH4wjHkcp jogbGVmdDsgdmVydGljYW grRSllB563LAXrnQyyVr9 XTmb7X9ApKcf6 YOXxxSinBP4wpTAzADztQ q7bnDmflObyZE3bQWFetd ufs506CkWkc3ydIBVgbNQ tUMdhUZV7T55g t5B0RDQvQWAbOZQ1eCK9k A6pyYjyobnasULebElgiy UrnGaeJImlMBbeS386QQM vcDsnPlBheWVy OjwvdGQ+TD80on40K9UiG trhYba7WEMmXRY3pVY4lN 4kBHAxTNrwe6J3cSC6Y5T ufiVpna6wz5jw YXBz (more content not included)... Normal [facility] Auto Diffon 06-30-2022 Basophils/100 WBC (Bld) 2.7 % High 0.0-2.0 [facility] Comment on above: Order Comment: Order Added by Discern Expert. Performed By: #### 2 505867, 85758578, 2179679, 9922330, 58153991 #### [facility] [address] [place] [address] Basophils/Leukocytes Auto (Bld) [Pure # fraction] 0.2 E9/L Normal 0.0-0.2 [facility] Comment on above: Order Comment: Order Added by Discern Expert. Performed By: #### 2 802180, 22064412, 0975512, 7815482, 31070251 #### [facility] [address] [place] [address] Eosinophils/100 WBC (Bld) 7.5 % Normal 0.0-8.0 [facility] Comment on above: Order Comment: Order Added by Discern Expert. Performed By: #### 2 945177, 46729077, 7015963, 2250050, 82281183 #### [facility] [address] [place] [address] Eosinophils/Leukocyte s Auto (Bld) [Pure # fraction] 0.5 E9/L Normal 0.0-0.5 [facility] Comment on above: Order Comment: Order Added by Devorah Expert. Performed By: #### 2 069895, 91189467, 3235188, 6293234, 88175382 #### [facility] [address] [place] [address] Lymphocytes/100 WBC (Bld) 35.7 % Normal 14.0-50.0 [facility] Comment on above: Order Comment: Order Added by Discern Expert. Performed By: #### 2 716061, 68182947, 1126686, 2364210, 80026231 #### [facility] [address] [place] [address] Lymphocytes/Leukocyte s Auto (Bld) [Pure # fraction] 2.3 E9/L Normal 1.0-4.0 [facility] Comment on above: Order Comment: Order Added by Devorah Expert. Performed By: #### 2 200150, 67808997, 8112242, 1635142, 27707852 #### [facility] [address] [place] [address] Monocytes/100 WBC (Bld) 7.0 % Normal 4.0-14.0 [facility] Comment on above: Order Comment: Order Added by Discern Expert. Performed By: #### 2 004806, 10424175, 0197282, 0312938, 39989858 #### [facility] [address] [place] [address] Monocytes/Leukocytes Auto (Bld) [Pure # fraction] 0.5 E9/L Normal 0.2-1.0 [facility] Comment on above: Order Comment: Order Added by Devorah Expert. Performed By: #### 2 720495, 80929661, 5227102, 4054286, 13160098 #### [facility] [address] [place] [address] Neutrophils/100 WBC (Bld) 47.1 % Normal 36.0-75.0 [facility] Comment on above: Order Comment: Order Added by Discern Expert. Performed By: #### 2 748933, 41147434, 3644480, 9201759, 70678634 #### [facility] [address] [place] [address] Neutrophils/Leukocyte s Auto (Bld) [Pure # fraction] 3.1 E9/L Normal 2.0-7.5 [facility] Comment on above: Order Comment: Order Added by Discern Expert. Performed By: #### 2 213911, 21586226, 1293257, 8283924, 80322946 #### [facility] [address] [place] [address] BMPon 06-30-2022 Anion gap [Moles/Vol] 13 mmol/L Normal 6-16 [facility] Comment on above: Performed By: #### 2 020333, 54192316, 9233057, 2937147, 13211390 #### [facility] [address] [place] [address] Calcium [Mass/Vol] 9.4 mg/dL Normal 8.9-11.1 [facility] Comment on above: Performed By: #### 2 387524, 03665660, 3401674, 7058816, 57954936 #### [facility] [address] [place] [address] Chloride [Moles/Vol] 99 mmol/L Low 101-111 [facility] Comment on above: Performed By: #### 2 398300, 65000780, 1025602, 7392008, 36993302 #### [facility] [address] [place] [address] CO2 [Moles/Vol] 25 mmol/L Normal 21-31 [facility] Comment on above: Performed By: #### 2 730155, 82276650, 2017718, 2166291, 46218451 #### [facility] [address] [place] [address] Creatinine [Mass/Vol] 1.0 mg/dL Normal 0.5-1.3 [facility] Comment on above: Performed By: #### 2 484814, 04889319, 2273587, 7271919, 04343175 #### [facility] [address] [place] [address] Glucose [Mass/Vol] 241 mg/dL High 55-199 [facility] Comment on above: Result Comment: If t his glucose result represents a fasting glucose, interpretation should refer to the following reference range: 55-99 mg/dL Performed By: #### 2 770340, 47926104, 6835533, 3297230, 31437275 #### [facility] [address] [place] [address] Potassium [Moles/Vol] 3.7 mmol/L Normal 3.5-5.3 [facility] Comment on above: Performed By: #### 2 248701, 97014212, 9974905, 3225050, 27488740 #### [facility] [address] [place] [address] Sodium [Moles/Vol] 133 mmol/L Low 135-145 [facility] Comment on above: Performed By: #### 2 699492, 50443218, 7778216, 8211344, 81819559 #### [facility] [address] [place] [address] Urea nitrogen [Mass/Vol] 12 mg/dL Normal 5-21 [facility] Comment on above: Performed By: #### 2 053296, 38183188, 5346413, 9219773, 63882367 #### [facility] [address] [place] [address] Urea nitrogen/Creatinine [Mass ratio] 12 No Units Normal 10-20 [facility] Comment on above: Performed By: #### 2 041460, 69865284, 3706506, 2051298, 19533582 #### [facility] [address] [place] [address] CBC w/ Auto Diffon Erythrocyte distribution width (RBC) [Ratio] 14.0 % Normal 10.9-14.2 [facility] Comment on above: Performed By: #### 2 620918, 24039561, 0540441, 8982349, 80875978 #### [facility] [address] [place] [address] Hematocrit (Bld) [Volume fraction] 40.8 % Normal 37.7-49.0 [facility] Comment on above: Performed By: #### 2 265595, 39669753, 6840167, 2275298, 57281489 #### [facility] [address] [place] [address] Hemoglobin (Bld) [Mass/Vol] 13.9 g/dL Normal 13.5-17.5 [facility] Comment on above: Performed By: #### 2 700450, 81890299, 6288273, 8428894, 53317820 #### [facility] [address] [place] [address] MCH (RBC) [Entitic mass] 27.9 pg Normal 27.0-34.0 [facility] Comment on above: Performed By: #### 2 019699, 35291603, 7214277, 6214732, 71273658 #### [facility] [address] [place] [address] MCHC (RBC) [Mass/Vol] 34.1 g/dL Normal 31.4-36.0 [facility] Comment on above: Performed By: #### 2 815227, 35281975, 0486589, 5217740, 09637450 #### [facility] [address] [place] [address] MCV (RBC) [Entitic vol] 81.8 fL Normal 80.0-100.0 [facility] Comment on above: Performed By: #### 2 626582, 57167447, 7668960, 4423765, 32167546 #### [facility] [address] [place] [address] Platelet mean volume (Bld) [Entitic vol] 8.3 fL Normal 6.4-10.8 [facility] Comment on above: Performed By: #### 2 608416, 05087207, 4375109, 5701362, 60006055 #### [facility] [address] [place] [address] Platelets (Bld) [#/Vol] 191.0 E9/L Normal 150.0-500.0 [facility] Comment on above: Performed By: #### 2 754836, 46817327, 4918604, 2124472, 28548621 #### [facility] [address] [place] [address] RBC (Bld) [#/Vol] 5.0 E12/L Normal 4.3-5.9 [facility] Comment on above: Performed By: #### 2 590065, 21412146, 1621283, 8719250, 36342744 #### [facility] [address] [place] [address] WBC corrected for nucl RBC Auto (Bld) [#/Vol] 6.5 E9/L Normal 4.0-11.0 [facility] Comment on above: Performed By: #### 2 182790, 70129044, 8208514, 5982242, 98736798 #### [facility] [address] [place] [address] CHEMISTRYOrdered By: SYSTEM SYSTEM on 06-30-2022 Anion gap [Moles/Vol] 13 mmol/L Normal 6 - 16 mEq/L [facility] Remisol Calcium [Mass/Vol] 9.4 mg/dL Normal 8.9 [...] rate/Area] mL/min/1.73 m2 Normal >=59mL/min/1.7 3 m2 [facility] Chem S Glucose [Mass/Vol] 241 mg/dL High [...] for Treatmenton Consent for Treatment [id number]#1 .00CD:127 Normal [facility] Consent for Treatment [id number]# 1.00CD:127 Normal [facility] HEMATOLOGYOrdered By: SYSTEM SYSTEM on 06-30-2022 [...] 7.5 E9/L [facility] HEMATOLOGYOrdered By: Rosanna Cardona on 06-30-2022 Erythrocyte distribution width (RBC) [Ratio] 14.0 % Normal 10.9 - 14.2 % [facility] Hematocrit (Bld) [Volume fraction] 40.8 % Normal 37.7 - 49.0 % [facility] Hemoglobin (Bld) [Mass/Vol] 13.9 g/dL Normal 13.5 - 17.5 gm/dL [facility] MCH (RBC) [Entitic mass] 27.9 pg [...] 6.5 E9/L Normal 4.0 - 11.0 E9/L [facility] PT & PTTon 06-30-2022 aPTT Coag (PPP) [Time] 33.6 second(s) Normal 25.1-36.5 [facility] Comment on above: Result Comment: Para [...] the same coagulation reagent and instrumentation as [facility]. Currently there are no coagulation studies available worldwide for children to 14 days, and no normal ranges. Heparin therapeutic range (represented by Anti-Factor Xa activity of 0.2 - 0.4 U/mL) corresponds to PTT of 56.6 - 109.0 sec. Performed By: #### 2 230231, 78486583, 2024170, 7536513, 63619907 #### [facility] [address] [place] [address] INR Coag (PPP) [Relative time] 1.1 {INR} Invalid Interpretation Code [facility] Comment on above: Result Comment: INR results are specifically intended to assess patients stabilized on long-term Anticoagulation therapy suggested INR?s ?Less Intensive Anticoagulation? 2.0 ? 3.0 Conventional Range 3.0 ? 4.5 Performed By: #### 2 688633, 74404983, 5418432, 5814647, 46383019 #### [facility] [address] [place] [address] PT Coag (PPP) [Time] 11.8 second(s) Normal 9.4-12.5 [facility] Comment on above: Result Comment: 15 [...] the same coagulation reagent and instrumentation as [facility]. Currently there are no coagulation studies available worldwide for children to 14 days, and no normal ranges. Performed By: #### 2 793037, 10785190, 4637716, 0607055, 68917438 #### [facility] [address] [place] [address] UA With Cult Reflexon 2021 Bilirubin Ql (U) Negative Normal Negative [facility] Comment on above: Performed By: #### 1 9706813 ####[facility] [id number] [place] [address] Clarity (U) CLEAR Normal Clear [facility] Comment on above: Performed By: #### 1 2404344 ####[address] [address] Color (U) YELLOW Normal Yellow [facility] Comment on above: Performed By: #### 1 2071901 ####[address] [address] Epithelial cells.squamous LM.HPF (Urine sed) [#/Area] 0-2 Normal 0-2 [facility] Comment on above: Performed By: #### 1 4312701 ####[address] [address] Glucose Test strip (U) [Mass/Vol] 1+ Abnormal Negative [facility] Comment on above: Performed By: #### 1 0744936 ####[address] [address] Hemoglobin Ql (U) TRACE Abnormal Negative [facility] Comment on above: Performed By: #### 1 9273203 ####[address] [address] Ketones (U) [Mass/Vol] Negative Normal Negative [facility] Comment on above: Performed By: #### 1 5921748 ####[address] [address] [place].plasma/Lithiu m.RBC (Bld) [Mass ratio] 4-20 Normal 0-3 [facility] Comment on above: Performed By: #### 1 7128207 ####[address] [address] Nitrite Ql (U) Negative Normal Negative [facility] Comment on above: Performed By: #### 1 5590437 ####[address] [address] pH (U) 5.5 [pH] Invalid Interpretation Code 5.0-9.0 [facility] Comment on above: Performed By: #### 1 7781831 ####[facility] [id number] [place] [address] Protein (U) [Mass/Vol] Negative Normal Negative [facility] Comment on above: Performed By: #### 1 [id number] ####[address] [address] Specific gravity (U) [Rel density] 1.025 Invalid Interpretation Code 1.005-1.030 [facility] Comment on above: Performed By: #### 1 [id number] ####[address] [address] Type of Urine collection method Clean Catch Normal [facility] Comment on above: Performed By: #### 1 [id number] ####[address] [address] Urobilinogen Qn (U) 0.2 {Shaka'U}/dL Normal 0.0-1.0 [facility] Comment on above: Performed By: #### 1 [id number] ####[facility] [id number] [place] [address] WBC Auto Ql (U) Negative Normal Negative [facility] Comment on above: Performed By: #### 1 [id number] ####[facility] [id number] [place] [address] WBC LM.HPF (Urine sed) [#/Area] 0-5 Normal 0-5 [facility] Comment on above: Performed By: #### 1 [id number] ####[address] [address] URINALYSISOrdered By: Duglas Khalil on 06-30-2022 Bilirubin Ql (U) Negative (06/30/22 4:35 PM) Normal Negative [facility] UA Auto SS Clarity (U) Clear (06/30/22 4:35 PM) Normal Clear [facility] UA Auto SS Color (U) Yellow (06/30/22 4:35 PM) Normal Yellow [facility] UA Auto SS Epithelial cells.squamous LM.HPF (Urine sed) [#/Area] 0-2 /HPF Normal 0-2/HPF [facility] UA Aut o SS Glucose Test strip (U) [Mass/Vol] 1+ *ABN* (06/30/22 4:35 PM) Invalid Interpretation Code Negative [facility] UA Auto SS Hemoglobin Ql (U) Trace *ABN* (06/30/22 4:35 PM) Invalid Interpretation Code Negative [facility] UA Auto SS Ketones (U) [Mass/Vol] Negative (06/30/22 4:35 PM) Normal Negative [facility] UA Auto SS [place].plasma/Lithiu m.RBC (Bld) [Mass ratio] 4-20 /HPF Normal 0-3/HPF [facility] UA Auto SS Nitrite Ql (U) Negative (06/30/22 4:35 PM) Normal Negative [facility] UA Auto SS pH (U) 5.5 *NA* (06/30/22 4:35 PM) Invalid Interpretation Code 5.0 - 9.0 [facility] UA Auto SS Protein (U) [Mass/Vol] Negative (06/30/22 4:35 PM) Normal Negative [facility] UA Auto SS Specific gravity (U) [Rel density] 1.025 *NA* (06/30/22 4:35 PM) Invalid Interpretation Code 1.005 - 1.030 [facility] UA Auto SS UA Spec Desc Clean Catch (06/30/22 4:35 PM) Normal [facility] UA Auto SS Urobilinogen Qn (U) [id number] {Shaka'U}/dL Normal 0.0 - 1.0 EU/dL [facility] UA Auto SS WBC Auto Ql (U) Negative (06/30/22 4:35 PM) Normal Negative [facility] UA Auto SS WBC LM.HPF (Urine sed) [#/Area] 0-5 /HPF Normal 0-5/HPF [facility] UA Auto SS XR Chest 2 Viewson [...] MD, V. Transcribed by: LISANDRO Technologist: VINNY Hooper [facility] eGFRon 06-30-2022 GFR/1.73 sq M.predicted among blacks MDRD (S/P/Bld) [Vol rate/Area] mL/min/{1.73_m2} Normal >=59 [facility] Comment on above: Order Comment: Order added by Discern Expert. Result Comment: eGFR is race adjusted. AA=. Performed By: #### 2 [id number] ####[facility] [address] [place] [address] GFR/1.73 sq M.predicted among non-blacks MDRD (S/P/Bld) [Vol rate/Area] mL/min/{1.73_m2} Normal >=59 [facility] Comment on above: Order Comment: Order added by Discern Expert. Result Comment: Upper Cutter Machine anderson kidney disease could be indicated at eGFR's of less than 60 mL/min/1.73m2. Kidney failure is indicated at less than 15 mL/min/1.73m2. Performed By: #### 2 [id number] ####[facility] [id number] [place] [address] COVID-19 ([facility])on 06-29-2022 Performing Instrument FT Willie 2 Normal [facility] Comment on above: Performed By: #### 2 [id number] ####[facility] [id number] [place] [address] SARS-CoV-2 (COVID-19) RNA NISHANT+probe Ql (Resp) Not detected Normal Not Detected [facility] Comment on above: Result Comment: This test result should be correlated with clinical presentations and medical history by a healthcare provider to determine its clinical significance. This assay was performed by a reverse transcriptase real-time polymerase chain reaction (rt PCR) method on the [employer] system. This test has been authorized only [...] or revoked sooner. Performed By: #### 2 [id number] ####[place] [address] SARS-CoV-2 (COVID-19) RNA NISHANT+probe Ql (Unsp spec) Pass Normal Pass [facility] Comment on above: Performed By: #### 2 [id number] ####[place] [address] Specimen source Nom (Unsp spec) Nasal Normal [facility] Comment on above: Performed By: #### 2 [id number] ####[place] [id number] Facesheeton 06-29-2022 Facesheet [id number] .00CD:127 Normal [facility] COVID-19 ([facility])on 06-28-2022 ADMITTED TO INTENSIVE CARE UNIT FOR CONDITION OF INTEREST:FIND:PT: NO Normal [facility] Comment on above: Performed By: #### 2 [id number] ####[place] [address] EMPLOYED IN A HEALTHCARE SETTING:FIND:PT: Unknown Normal [facility] Comment on above: Performed By: #### 2 [id number] ####[place] [id number] FIRST TEST FOR CONDITION OF INTEREST:FIND:PT: Unknown Normal [facility] Comment on above: Performed By: #### 2 [id number] ####[place] [address] HAS SYMPTOMS RELATED TO CONDITION OF INTEREST:FIND:PT: Unknown Normal [facility] Comment on above: Performed By: #### 2 [id number] ####[place] [address] HOSPITALIZED FOR CONDITION OF INTEREST:FIND:PT: NO Normal [facility] Comment on above: Performed By: #### 2 [id number] ####[place] [address] STATUS:FIND:PT: NO Normal [facility] Comment on above: Performed By: #### 2 [id number] ####[place] [address] RESIDES IN A CRITICAL ACCESS HOSPITAL CARE SETTING:FIND:PT: Unknown Normal [facility] Comment on above: Performed By: #### 2 [id number] ####[facility] [id number] [place] [address] Consent for Procedure/Surger yon 06-28-2022 Consent for Procedure/Surgery [id number] .00CD:127 Normal [facility] RAD - MISCon 06-24-2022 RAD - MISC [id number] .00CD:127 Normal [facility] XR ABD FLAT_UPon 06-15-2022 XR ABD [...] by: SUELLEN MAYO Date: 2022-06-15 17:[address] [facility] CBC AUTO DIFFon 06-07-2022 BASO # 0.1 103/ul Normal 0.0-0.1 [facility] Comment on above: Performed By: #### P TT, PT #### [facility] [address] [place] [address] Dr. Marcell Luque Basophils/100 WBC (Bld) 0.6 % Normal 0.2-2.0 [facility] Comment on above: Performed By: #### P TT, PT #### [facility] [address] [place] [address] Dr. Marcell Luque EO # 0.3 103/ul Normal 0.0-0.7 [facility] Comment on above: Performed By: #### P TT, PT #### [facility] [address] [place] [address] Dr. Marcell Luque Eosinophils/100 WBC (Bld) 3.3 % Normal 0.9-7.0 [facility] Comment on above: Performed By: #### P TT, PT #### [facility] [address] [place] [address] Dr. Marcell Luque Erythrocyte distribution width (RBC) [Ratio] 13.9 % Normal 11.0-15.0 [facility] Comment on above: Performed By: #### P TT, PT #### [facility] [address] [place] [address] Dr. Marcell Luque Hematocrit (Bld) [Volume fraction] 39.3 % Critically low 42.0-54.0 [facility] Comment on above: Performed By: #### P TT, PT #### [facility] [address] [place] [address] Dr. Marcell Luque Hemoglobin (Bld) [Mass/Vol] 12.6 g/dL Critically low 14.0-18.0 [facility] Comment on above: Performed By: #### P TT, PT #### [facility] [address] [place] [address] Dr. Marcell Luque IG # 0.02 10e3/ul Normal 0.00-0.03 [facility] Comment on above: Performed By: #### P TT, PT #### [facility] [address] [place] [address] Dr. Marcell Luque IG % 0.2 % Normal 0.0-0.5 [facility] Comment on above: Performed By: #### P TT, PT #### [facility] [address] [place] [address] Dr. Marcell Luque LYMPH # 2.4 103/ul Normal 1.2-3.8 [facility] Comment on above: Performed By: #### P TT, PT #### [facility] [address] [place] [address] Dr. Marcell Luque Lymphocytes/100 WBC (Bld) 29.6 % Normal 20.5-60.0 [facility] Comment on above: Performed By: #### P TT, PT #### [facility] [address] [place] [address] Dr. Marcell Luque MANUAL DIFF REQ NO Normal [facility] Comment on above: Performed By: #### P TT, PT #### [facility] [address] [place] [address] Dr. Marcell Luque MCH (RBC) [Entitic mass] 27.9 pg Normal 25.9-34.0 [facility] Comment on above: Performed By: #### P TT, PT #### [facility] [address] [place] [address] Dr. Marcell Luque MCHC (RBC) [Mass/Vol] 32.1 g/dL Normal 29.9-35.2 [facility] Comment on above: Performed By: #### P TT, PT #### [facility] [address] [place] [address] Dr. Marcell Luque MCV (RBC) [Entitic vol] 87.1 fL Normal 80.0-94.0 [facility] Comment on above: Performed By: #### P TT, PT #### [facility] [address] [place] [address] Dr. Marcell Luque MONO # 0.9 103/ul Critically high 0.3-0.[address] [facility] Comment on above: Performed By: #### P TT, PT #### [facility] [address] [place] [address] [address] Marcell Luque Monocytes/100 WBC (Bld) 10.7 % Normal 1.7-12.0 [facility] Comment on above: Performed By: #### P TT, PT #### [facility] [address] [place] [address] Dr. Marcell Luque NEUT # 4.5 103/ul Normal 1.4-6.5 [facility] Comment on above: Performed By: #### P TT, PT #### [facility] [address] [place] [address] Dr. Marcell Luque Neutrophils/100 WBC (Bld) 55.6 % Normal 43.0-75.0 [facility] Comment on above: Performed By: #### P TT, PT #### [facility] [address] [place] [address] Dr. Marcell Luque Platelet mean volume (Bld) [Entitic vol] 10.7 fL Normal 9.5-13.5 [facility] Comment on above: Performed By: #### P TT, PT #### [facility] [address] [place] [address] Dr. Marcell Luque PLT 155 103/ul Normal 150-450 [facility] Comment on above: Performed By: #### P TT, PT #### [facility] [address] [place] [address] Dr. Marcell Luque RBC 4.51 106/ul Critically low 4.70-6.[address] [facility] Comment on above: Performed By: #### P TT, PT #### [facility] [address] [place] [address] Dr. Marcell Luque WBC 8.1 103/ul Normal 4.0-11.0 [facility] Comment on above: Performed By: #### P TT, PT #### [facility] [address] [place] [address] Dr. Marcell Luque [facility] SARS-CoV-2 (COVID-19) RNA NISHANT+probe Ql (Unsp spec) Not detected Normal NOT DETECTED [facility] Comment on above: Result Comment: When diagnostic [...] for this test is supported by the [employer] of [employer] and Human Service's declaration that [...] Performed By: #### P TT, PT #### [facility] [address] [place] [address] Dr. Marcell Luque LACTATE/LACTIC ACIDon 2021 Lactate [Moles/Vol] 1.4 mmol/L Normal 0.4-1.9 [facility] Comment on above: Performed By: #### L ACT #### [facility] [address] [place] [address] Dr. Marcell Luque PROF CHEM 8 (BAS METB)on Anion gap [Moles/Vol] 8.7 mmol/L Normal [facility] Comment on above: Performed By: #### B MP #### [facility] [address] [place] [address] Dr. Marcell Luque Calcium [Mass/Vol] 8.7 mg/dL Normal 8.5-10.1 [facility] Comment on above: Performed By: #### B MP #### [facility] [address] [place] [address] Dr. Marcell Luque Chloride [Moles/Vol] 101 mmol/L Normal 98-107 [facility] Comment on above: Performed By: #### B MP #### [facility] [address] [place] [address] Dr. Marcell Luque CO2 [Moles/Vol] 29.8 mmol/L Normal 21.0-32.0 [facility] Comment on above: Performed By: #### B MP #### [facility] [address] [place] [address] Dr. Marcell Luque Creatinine [Mass/Vol] 1.12 mg/dL Normal 0.70-1.30 [facility] Comment on above: Performed By: #### B MP #### [facility] [address] [place] [address] [address] Marcell Luque EGFR-AF ENGLISH >60 Normal >=60 [facility] Comment on above: Performed By: #### B MP #### [facility] [address] [place] [address] Dr. Marcell Luque EGFR-NON AF ENGLISH >60 Normal >=60 [facility] Comment on above: Performed By: #### B MP #### [facility] [address] [place] [address] Dr. Marcell Luque Glucose [Mass/Vol] 173 mg/dL Critically high 74-106 [facility] Comment on above: Performed By: #### B MP #### [facility] [address] [place] [address] Dr. Marcell Luque Potassium [Moles/Vol] 3.5 mmol/L Normal 3.5-5.1 [facility] Comment on above: Performed By: #### B MP #### [facility] [address] [place] [address] Dr. Marcell Luque Sodium [Moles/Vol] 136 mmol/L Normal 136-145 [facility] Comment on above: Performed By: #### B MP #### [facility] [address] [place] [address] [address] Marcell Luque Urea nitrogen [Mass/Vol] 18.0 mg/dL Normal 7.0-18.0 [facility] Comment on above: Performed By: #### B MP #### [facility] [address] [place] [address] Dr. Marcell Luque Urea nitrogen/Creatinine [Mass ratio] 16.1 mg/mg Normal [facility] Comment on above: Performed By: #### B MP #### [facility] [address] [place] [address] [address] Marcell Luque TROPONIN, HIGH SENSITIVITYon 06-07-2022 HSTROP 84.7 pg/mL Critically high 4.0-76.1 [facility] Comment on above: Result Comment: CUT- OFF POINTS HAVE BEEN ESTABLISHED BASED ON THE FOURTH UNIVERSAL DEFINITIONS OF MYOCARDIAL INFARCTION. THE UPPER REFERENCE LIMIT (URL) OF TROPONIN, DEFINED THE 99TH PERCENTILE OF cTnI DISTRIBUTION IN A REFERENCE POPULATION, HAS BEEN CONFIRMED THE DECISION THRESHOLD FOR [place] DIAGNOSIS. Performed By: #### P TT, PT #### [facility] [address] [place] [address] [address] Marcell Luque XR CHEST 1 Von [...] VALERIE ERWIN Date: 2022-06-06 22:17 Normal [facility] AMMONIAon 06-06-2022 Ammonia (P) [Moles/Vol] 13 umol/L Normal [facility] Comment on above: Performed By: #### A MM #### [facility] [address] [address] [address] Marcell Luque CBC AUTO DIFFon 06-06-2022 BASO # 0.1 103/ul Normal 0.0-0.1 [facility] Comment on above: Performed By: #### P TT, PT #### [facility] [address] [place] [address] [address] Marcell Luque Basophils/100 WBC (Bld) 0.7 % Normal 0.2-2.0 [facility] Comment on above: Performed By: #### P TT, PT #### [facility] [address] [place] [address] Dr. Marcell Luque EO # 0.3 103/ul Normal 0.0-0.7 [facility] Comment on above: Performed By: #### P TT, PT #### [facility] [address] [place] [address] Dr. Marcell Luque Eosinophils/100 WBC (Bld) 4.0 % Normal 0.9-7.0 [facility] Comment on above: Performed By: #### P TT, PT #### [facility] [address] [place] [address] Dr. Marcell Luque Erythrocyte distribution width (RBC) [Ratio] 13.8 % Normal 11.0-15.0 [facility] Comment on above: Performed By: #### P TT, PT #### [facility] [address] [place] [address] Dr. Marcell Luque Hematocrit (Bld) [Volume fraction] 44.4 % Normal 42.0-54.0 [facility] Comment on above: Performed By: #### P TT, PT #### [facility] [address] [place] [address] Dr. Marcell Luque Hemoglobin (Bld) [Mass/Vol] 14.4 g/dL Normal 14.0-18.0 [facility] Comment on above: Performed By: #### P TT, PT #### [facility] [address] [place] [address] Dr. Marcell Luque IG # 0.02 10e3/ul Normal 0.00-0.03 [facility] Comment on above: Performed By: #### P TT, PT #### [facility] [address] [place] [address] Dr. Marcell Luque IG % 0.2 % Normal 0.0-0.5 [facility] Comment on above: Performed By: #### P TT, PT #### [facility] [address] [place] [address] Dr. Marcell Luque LYMPH # 2.9 103/ul Normal 1.2-3.8 [facility] Comment on above: Performed By: #### P TT, PT #### [facility] [address] [place] [address] Dr. Marcell Luque Lymphocytes/100 WBC (Bld) 35.4 % Normal 20.5-60.0 [facility] Comment on above: Performed By: #### P TT, PT #### [facility] [address] [place] [address] Dr. Marcell Luque MANUAL DIFF REQ NO Normal [facility] Comment on above: Performed By: #### P TT, PT #### [facility] [address] [place] [address] Dr. Marcell Luque MCH (RBC) [Entitic mass] 28.1 pg Normal 25.9-34.0 [facility] Comment on above: Performed By: #### P TT, PT #### [facility] [address] [place] [address] Dr. Marcell Luque MCHC (RBC) [Mass/Vol] 32.4 g/dL Normal 29.9-35.2 [facility] Comment on above: Performed By: #### P TT, PT #### [facility] [address] [place] [address] Dr. Marcell Luque MCV (RBC) [Entitic vol] 86.7 fL Normal 80.0-94.0 [facility] Comment on above: Performed By: #### P TT, PT #### [facility] [address] [place] [address] Dr. Marcell Luque MONO # 0.7 103/ul Normal 0.3-0.8 [facility] Comment on above: Performed By: #### P TT, PT #### [facility] [address] [place] [address] Dr. Marcell Luque Monocytes/100 WBC (Bld) 8.2 % Normal 1.7-12.0 [facility] Comment on above: Performed By: #### P TT, PT #### [facility] [address] [place] [address] Dr. Marcell Luque NEUT # 4.2 103/ul Normal 1.4-6.5 [facility] Comment on above: Performed By: #### P TT, PT #### [facility] [address] [place] [address] Dr. Marcell Luque Neutrophils/100 WBC (Bld) 51.5 % Normal 43.0-75.0 [facility] Comment on above: Performed By: #### P TT, PT #### [facility] [address] [place] [address] Dr. Marcell Luque Platelet mean volume (Bld) [Entitic vol] 11.0 fL Normal 9.5-13.5 [facility] Comment on above: Performed By: #### P TT, PT #### [facility] [address] [place] [address] Dr. Marcell Luque PLT 183 103/ul Normal 150-450 [facility] Comment on above: Performed By: #### P TT, PT #### [facility] [address] [place] [address] Dr. Marcell Luque RBC 5.12 106/ul Normal 4.70-6.10 [facility] Comment on above: Performed By: #### P TT, PT #### [facility] [address] [place] [address] Dr. Marcell Luque WBC 8.2 103/ul Normal 4.0-11.0 [facility] Comment on above: Performed By: #### P TT, PT #### [facility] [address] [place] [address] HEAD WO CONon [...] CURTIS WILSON Date: 2022-06-06 21:56 Normal [facility] CULTURE BLOODon 06-06-2022 Microscopic examination of blood, culture Culture Observations: NO GROWTH AT [address] [facility] Comment on above: Performed By: #### P TT, PT #### [facility] [address] [address] [address] Marcell Luque Microscopic examination of blood, culture Culture Observations: NO GROWTH AT 5 DAYS. Normal [facility] Comment on above: Performed By: #### P TT, PT #### [facility] [address] [address] [address] Marcell Luque ETHANOL (BLD ALC)on 06-06-20 22 ALC NOTE NOTE: 80 mg/dl is th e legal limit for a blood alcohol level Normal [facility] Comment on above: Performed By: #### P TT, PT #### [facility] [address] [address] [address] Marcell Luque Ethanol [Mass/Vol] mg/dL Normal [facility] Comment on above: Performed By: #### P TT, PT #### [facility] [address] [place] [address] Dr. Marcell Luque LACTATE/LACTIC ACIDon 2021 Lactate [Moles/Vol] 2.9 mmol/L Critically high 0.4-1.9 [facility] Comment on above: Performed By: #### P TT, PT #### [facility] [address] [place] [address] Dr. Marcell Luque PROF 14(COMP METB)on 022 Albumin [Mass/Vol] 4.3 g/dL Normal 3.4-5.0 [facility] Comment on above: Performed By: #### P TT, PT #### [facility] [address] [place] [address] Dr. Marcell Luque Albumin/Globulin [Mass ratio] 1.1 {ratio} Normal [facility] Comment on above: Performed By: #### P TT, PT #### [facility] [address] [place] [address] Dr. Marcell Luque ALP [Catalytic activity/Vol] 91 U/L Normal 46-116 [facility] Comment on above: Performed By: #### P TT, PT #### [facility] [address] [place] [address] Dr. Marcell Luque ALT [Catalytic activity/Vol] 35 U/L Normal 16-63 [facility] Comment on above: Performed By: #### P TT, PT #### [facility] [address] [place] [address] Dr. Marcell Luque Anion gap [Moles/Vol] 11.7 mmol/L Normal [facility] Comment on above: Performed By: #### P TT, PT #### [facility] [address] [place] [address] Dr. Marcell Luque AST [Catalytic activity/Vol] 15 U/L Normal 15-37 [facility] Comment on above: Performed By: #### P TT, PT #### [facility] [address] [address] [address] Marcell Luque Bilirubin [Mass/Vol] 0.4 mg/dL Normal 0.2-1.0 [facility] Comment on above: Performed By: #### P TT, PT #### [facility] [address] [address] [address] Marcell Luque Calcium [Mass/Vol] 9.8 mg/dL Normal 8.5-10.1 [facility] Comment on above: Performed By: #### P TT, PT #### [facility] [address] [address] [address] Marcell Luque Chloride [Moles/Vol] 97 mmol/L Critically low 98-107 [facility] Comment on above: Performed By: #### P TT, PT #### [facility] [address] [place] [address] Dr. Marcell Luque CO2 [Moles/Vol] 30.8 mmol/L Normal 21.0-32.0 [facility] Comment on above: Performed By: #### P TT, PT #### [facility] [address] [place] [address] Dr. Marcell Luque Creatinine [Mass/Vol] 1.45 mg/dL Critically high 0.70-1.30 [facility] Comment on above: Performed By: #### P TT, PT #### [facility] [address] [place] [address] Dr. Marcell Luque EGFR-AF ENGLISH 59 mL/min/1.73m2 Critically low >=60 [facility] Comment on above: Performed By: #### P TT, PT #### [facility] [address] [place] [address] Dr. Marcell Luque EGFR-NON AF ENGLISH 49 mL/min/1.73m2 Critically low >=60 [facility] Comment on above: Performed By: #### P TT, PT #### [facility] [address] [place] [address] Dr. Marcell Luque Globulin (S) [Mass/Vol] 3.9 g/dL Normal [facility] Comment on above: Performed By: #### P TT, PT #### [facility] [address] [address] [address] Marcell Luque Glucose [Mass/Vol] 204 mg/dL Critically high 74-106 [facility] Comment on above: Performed By: #### P TT, PT #### [facility] [address] [address] [address] Marcell Luque Potassium [Moles/Vol] 3.5 mmol/L Normal 3.5-5.1 [facility] Comment on above: Performed By: #### P TT, PT #### [facility] [address] [address] [address] Marcell Luque Protein [Mass/Vol] 8.2 g/dL Normal 6.4-8.2 [facility] Comment on above: Performed By: #### P TT, PT #### [facility] [address] [address] [address] Marcell Luque Sodium [Moles/Vol] 136 mmol/L Normal 136-145 [facility] Comment on above: Performed By: #### P TT, PT #### [facility] [address] [address] [address] Marcell Luque Urea nitrogen [Mass/Vol] 20.0 mg/dL Critically high 7.0-18.0 [facility] Comment on above: Performed By: #### P TT, PT #### [facility] [address] [address] [address] Marcell Luque Urea nitrogen/Creatinine [Mass ratio] 13.8 mg/mg [facility] Comment on above: Performed By: #### P TT, PT #### [facility] [address] [address] [address] Marcell Luque PROTIMEon 06-06-2022 INR Coag (PPP) [Relative time] 1.02 {INR} [facility] Comment on above: Performed By: #### P TT, PT #### [facility] [address] [address] [address] Marcell Luque INR GUIDELINES SEE BELOW Normal [facility] Comment on above: Result Comment: DANICA RED INR: 2.0 - 3.0 CONDITIONS NOT LISTED BELOW 2.5 - 3.5 FOR PROSTHETIC HEART VALVE REPLACEMENT 2.5 - 3.5 RECURRENT THROMBOSIS Performed By: #### P TT, PT #### [facility] [address] [address] [address] Marcell Luque PT Coag (PPP) [Time] 11.0 s Normal 9.0-11.6 [facility] Comment on above: Performed By: #### P TT, PT #### [facility] [address] [address] [address] Marcell Luque PTTon 06-06-2022 aPTT Coag (Bld) [Time] 25.9 s Normal 22.3-36.2 [facility] Comment on above: Performed By: #### P TT, PT #### [facility] [address] [place] [address] Dr. Marcell Luque TROPONIN, HIGH SENSITIVITYon 06-06-2022 HSTROP 92.4 pg/mL Critically high 4.0-76.1 [facility] Comment on above: Result Comment: CUT- OFF POINTS HAVE BEEN ESTABLISHED BASED ON THE FOURTH UNIVERSAL DEFINITIONS OF MYOCARDIAL INFARCTION. THE UPPER REFERENCE LIMIT (URL) OF TROPONIN, DEFINED THE 99TH PERCENTILE OF cTnI DISTRIBUTION IN A REFERENCE POPULATION, HAS BEEN CONFIRMED THE DECISION THRESHOLD FOR [place] DIAGNOSIS. Performed By: #### P TT, PT #### [facility] [address] [place] [address] Dr. Marcell Luque Physician Referralon 022 Physician Referral [id number] .[id number]:127 Normal [facility] Ambulatory Visit Summaryon 1 Ambulatory Visit Summary EUNICE MARTE :1955 Visit Date:06/02/2022 Ambulatory Visit Instructions Your Diagnosis Elevated PSA BPH with urinary obstruction Erectile dysfunction Tests Performed Urnls Dip Stick Auto w/o Microscopy POC 82975 Your Care Team Attending Physician - Dewey [...] MD, Asim Singleton Where: [facility] Patient Educationon 06-02-20 Patient Education Urology [...] these instructions at home: Medicines ? Take oyiw-mtw-kvzmbkq and prescription medicines only as told by [...] swelling of your (more content not included)... [facility] Provider Letteron 06-02-2022 Provider Letter June 02, 2022 EUNICE MARTE [address] [place] [id number] EUNICE MARTE 1955 To Whom It May Concern, Please excuse above patient from work. Date of Appointment: From: 06/02/2022 To: 06/02/2022 May Return to Work On:06/02/2022 Restrictions: none Comments: Shayy was with her Eunice for his appointment at our office today, any questions please call our office Sincerely, [facility] [address], [place] [address] [facility] RAD - MRI Reporton 2 RAD - MRI Report [id number] .00CD:127 [facility] Urology Office/Clinic Noteon 06-02-2022 Urology Office/Clinic Note Chief Complaint Patient in office for f/u to MRI of the prostate HPI Staff Patient in office for f/u to MRI of the Prostate done on 05/26/22 @ [facility]. MRI shows a focal area of T2 [...] Information Dewey COTTO, Milvia Lucia, URL, U[facility] [address], [place] [phone] Additional Instructions: Patient Education Erectile Dysfunction I, [...] 6 refi (more content not included)... Normal [facility] Comment on above: Result Comment: Elec tronically Signed By: Dewey COTTO, Milvia Lucia\.br\Date and Time Signed: 06/02/22 12:00 EDT\.br\Electronically Co-Signed By: Paty Maher MA\.br\Date and Time Co-Signed: 06/02/22 10:08 EDT Creatinine (Bld) [Mass/Vol]O rdered By: Milvia Palomo on 05-26-2022 Creatinine [Mass/Vol] 0.8 mg/dL 0.6-1.3 [facility] Comment on above: ER/ESD physician is notified/shown all ISTAT results.Critical values may be confirmed by laboratory testing ifdeemed necessary by ER attending doctor. No Panel InformationOrdered By: Milvia Palomo on 05-26-2022 POC Estimated GFR > 60 [facility] Comment on above: GFR estimated refere nce range: According to KDOQI guidelines, <60 ml/min/1.73m2 is sufficient to diagnose a patient with chronic kidney disease. POC Estimated GFR Non- Amer > 60 [facility] Screenson 04-29-2022 Screens [id number] 1.00CD:127 Normal [facility] Screens [id number] .00CD:127 Normal [facility] Patient Educationon 04-21-20 22 Patient Education Oncology [...] of these risk factors: ? Being of -[place]ian descent. ? Having a family history of [...] Are older than age 55. ? Are -Ivorian. ? Have a father, brother, or uncle [...] 05/19/2018 Document R (more content not included)... [facility] Provider Letteron 04-21-2022 Provider Letter April 21, 2022 EUNICE MARTE [address] [place] [address] EUNICE MARTE 1955 To Whom It May Concern, Please excuse above patient from work. Date of Illness: for appointment 04/21/2022 May Return to Work On: 04/21/2022 Restrictions: _ Comments: _ Sincerely, [facility] [address], [place] [address] [facility] Urology Office/Clinic Noteon 04-21-2022 Urology Office/Clinic [...] addressing at this time, will revisit pending lot attendant workup Follow-up With When Contact Information Milvia Palomo MD, URL, URO Additional Instructions: MRI of prostate [...] mg T (more content not included)... Normal [facility] Comment on above: Result Comment: Elec tronically Signed By: Milvia Palomo MD\.br\Date and Time Signed: 04/21/22 17:24 EDT\.br\Electronically Co-Signed By: Lamar Lowry\.br\Date and Time Co-Signed: 04/21/22 12:13 EDT CBC AUTO DIFFon 01-26-2022 BASO # 0.1 103/ul Normal 0.0-0.1 [facility] Comment on above: Performed By: #### P TT, PT #### [facility] [address] [place] [address] Dr. Marcell Luque Basophils/100 WBC (Bld) 1.1 % Normal 0.2-2.0 [facility] Comment on above: Performed By: #### P TT, PT #### [facility] [address] [place] [address] Dr. Marcell Luque EO # 0.3 103/ul Normal 0.0-0.7 [facility] Comment on above: Performed By: #### P TT, PT #### [facility] [address] [place] [address] Dr. Marcell Luque Eosinophils/100 WBC (Bld) 5.0 % Normal 0.9-7.0 [facility] Comment on above: Performed By: #### P TT, PT #### [facility] [address] [place] [address] Dr. Marcell Luque Erythrocyte distribution width (RBC) [Ratio] 13.0 % Normal 11.0-15.0 [facility] Comment on above: Performed By: #### P TT, PT #### [facility] [address] [place] [address] Dr. Marcell Luque Hematocrit (Bld) [Volume fraction] 44.3 % Normal 42.0-54.0 [facility] Comment on above: Performed By: #### P TT, PT #### [facility] [address] [place] [address] Dr. Marcell Luque Hemoglobin (Bld) [Mass/Vol] 14.3 g/dL Normal 14.0-18.0 [facility] Comment on above: Performed By: #### P TT, PT #### [facility] [address] [place] [address] Dr. Marcell Luque IG # 0.01 10e3/ul Normal 0.00-0.03 [facility] Comment on above: Performed By: #### P TT, PT #### [facility] [address] [place] [address] Dr. Marcell Luque IG % 0.2 % Normal 0.0-0.5 [facility] Comment on above: Performed By: #### P TT, PT #### [facility] [address] [address] [address] Marcell Luque LYMPH # 2.1 103/ul Normal 1.2-3.8 [facility] Comment on above: Performed By: #### P TT, PT #### [facility] [address] [address] [address] Marcell Luque Lymphocytes/100 WBC (Bld) 32.6 % Normal 20.5-60.0 [facility] Comment on above: Performed By: #### P TT, PT #### [facility] [address] [address] [address] Marcell Luque MANUAL DIFF REQ NO Normal [facility] Comment on above: Performed By: #### P TT, PT #### [facility] [address] [place] [address] Dr. Marcell Luque MCH (RBC) [Entitic mass] 27.7 pg Normal 25.9-34.0 [facility] Comment on above: Performed By: #### P TT, PT #### [facility] [address] [place] [address] Dr. Marcell Luque MCHC (RBC) [Mass/Vol] 32.3 g/dL Normal 29.9-35.2 [facility] Comment on above: Performed By: #### P TT, PT #### [facility] [address] [place] [address] Dr. Marcell Luque MCV (RBC) [Entitic vol] 85.7 fL Normal 80.0-94.0 [facility] Comment on above: Performed By: #### P TT, PT #### [facility] [address] [place] [address] Dr. Marcell Luque MONO # 0.4 103/ul Normal 0.3-0.8 [facility] Comment on above: Performed By: #### P TT, PT #### [facility] [address] [place] [address] Dr. Marcell Luque Monocytes/100 WBC (Bld) 6.9 % Normal 1.7-12.0 [facility] Comment on above: Performed By: #### P TT, PT #### [facility] [address] [address] [address] Marcell Luque NEUT # 3.5 103/ul Normal 1.4-6.5 [facility] Comment on above: Performed By: #### P TT, PT #### [facility] [address] [address] [address] Marcell Luque Neutrophils/100 WBC (Bld) 54.2 % Normal 43.0-75.0 [facility] Comment on above: Performed By: #### P TT, PT #### [facility] [address] [place] [address] Dr. Marcell Luque Platelet mean volume (Bld) [Entitic vol] 11.9 fL Normal 9.5-13.5 [facility] Comment on above: Performed By: #### P TT, PT #### [facility] [address] [place] [address] Dr. Marcell Luque PLT 268 103/ul Normal 150-450 [facility] Comment on above: Performed By: #### P TT, PT #### [facility] [address] [place] [address] Dr. Marcell Luque RBC 5.17 106/ul Normal 4.70-6.10 [facility] Comment on above: Performed By: #### P TT, PT #### [facility] [address] [place] [address] Dr. Marcell Luque WBC 6.4 103/ul Normal 4.0-11.0 [facility] Comment on above: Performed By: #### P TT, PT #### [facility] [address] [place] [address] Dr. Marcell Luque GLYCOHEMOGLOBIN A1Con 2021 ADA RECOMMENDATION SEE BELOW Normal [facility] Comment on above: Result Comment: ADA RECOMMENDED LIMIT 4.0 - 6.0 ADA THERAPEUTIC TARGET < 7.0 ACTION SUGGESTED > 7.0 Performed By: #### A 1C #### [facility] [address] [place] [address] Dr. Marcell Luque Glucose [Mass/Vol] 272 mg/dL Normal [facility] Comment on above: Performed By: #### A 1C #### [facility] [address] [address] [address] Marcell Luque HbA1c (Bld) [Mass fraction] 11.1 % Critically high 4.5-6.2 [facility] Comment on above: Performed By: #### A 1C #### [facility] [address] [address] [address] Marcell Luque LIPID PROFILEon 01-26-2022 CHOL-HDL RATIO NORM SEE BELOW Normal [facility] Comment on above: Result Comment: 3.3 - 4.4 LOW RISK 4.4 - 7.1 AVERAGE RISK 7.1 - 11.0 MODERATE RISK >11.0 HIGH RISK Performed By: #### L IVER, LIPID, BMP #### [facility] [address] [address] [address] Marcell Luque Cholesterol [Mass/Vol] 219 mg/dL Critically high <=200 [facility] Comment on above: Performed By: #### L IVER, LIPID, BMP #### [facility] [address] [address] [address] Marcell Luque Cholesterol in HDL [Mass/Vol] 42 mg/dL Normal 40-60 [facility] Comment on above: Performed By: #### L IVER, LIPID, BMP #### [facility] [address] [address] [address] Marcell Luque Cholesterol in LDL [Mass/Vol] 151.8 mg/dL Normal [facility] Comment on above: Performed By: #### L IVER, LIPID, BMP #### [facility] [address] [address] [address] Marcell Luque Cholesterol.total/Cho lesterol in HDL [Mass ratio] 5.2 {ratio} Normal [facility] Comment on above: Performed By: #### L IVER, LIPID, BMP #### [facility] [address] [address] [address] Marcell Luque HDL NORMAL > or = 60 mg/dl - LO W CARDIOVASCULAR RISK <40 mg/dl - HIGH CARDIOVASCULAR RISK Normal [facility] Comment on above: Performed By: #### L IVER, LIPID, BMP #### [facility] [address] [address] [address] Marcell Luque LDL CALC NORMAL SEE BELOW Normal [facility] Comment on above: Result Comment: <100 mg/dl OPTIMAL 100 - 129 mg/dl NEAR OR ABOVE OPTIMAL 130 - 159 mg/dl BORDERLINE HIGH 160 - 189 mg/dl HIGH >190 mg/dl VERY HIGH Performed By: #### L IVER, LIPID, BMP #### [facility] [address] [address] [address] Marcell Luque Triglyceride [Mass/Vol] 126 mg/dL Normal <=150 [facility] Comment on above: Performed By: #### L IVER, LIPID, BMP #### [facility] [address] [place] [address] Dr. Marcell Luque VLDL CALC 25.2 mg/dL Normal [facility] Comment on above: Performed By: #### L IVER, LIPID, BMP #### [facility] [address] [address] [address] Marcell Luque LIVER PROFILEon 01-26-2022 Albumin [Mass/Vol] 3.8 g/dL Normal 3.4-5.0 [facility] Comment on above: Performed By: #### L IVER, LIPID, BMP #### [facility] [address] [place] [address] Dr. Marcell Luque Albumin/Globulin [Mass ratio] 1.0 {ratio} Normal [facility] Comment on above: Performed By: #### L IVER, LIPID, BMP #### [facility] [address] [place] [address] Dr. Marcell Luque ALP [Catalytic activity/Vol] 106 U/L Normal 46-116 [facility] Comment on above: Performed By: #### L IVER, LIPID, BMP #### [facility] [address] [place] [address] Dr. Marcell Luque ALT [Catalytic activity/Vol] 34 U/L Normal 16-63 [facility] Comment on above: Performed By: #### L IVER, LIPID, BMP #### [facility] [address] [place] [address] Dr. Marcell Luque AST [Catalytic activity/Vol] 19 U/L Normal 15-37 [facility] Comment on above: Performed By: #### L IVER, LIPID, BMP #### [facility] [address] [place] [address] Dr. Marcell Luque BILI, CONJUGATED 0.1 mg/dL Normal 0.0-0.2 [facility] Comment on above: Performed By: #### L IVER, LIPID, BMP #### [facility] [address] [place] [address] Dr. Marcell Luque Bilirubin [Mass/Vol] 0.5 mg/dL Normal 0.2-1.0 [facility] Comment on above: Performed By: #### L IVER, LIPID, BMP #### [facility] [address] [place] [address] Dr. Marcell Luque Globulin (S) [Mass/Vol] 3.9 g/dL Normal [facility] Comment on above: Performed By: #### L IVER, LIPID, BMP #### [facility] [address] [place] [address] Dr. Marcell Luque Protein [Mass/Vol] 7.7 g/dL Normal 6.4-8.2 [facility] Comment on above: Performed By: #### L IVER, LIPID, BMP #### [facility] [address] [place] [address] Dr. Marcell Luque PROF CHEM 8 (BAS METB)on Anion gap [Moles/Vol] 12.1 mmol/L Normal [facility] Comment on above: Performed By: #### L IVER, LIPID, BMP #### [facility] [address] [place] [address] Dr. Marcell Luque Calcium [Mass/Vol] 9.3 mg/dL Normal 8.5-10.1 [facility] Comment on above: Performed By: #### L IVER, LIPID, BMP #### [facility] [address] [place] [address] Dr. Marcell Luque Chloride [Moles/Vol] 100 mmol/L Normal 98-107 [facility] Comment on above: Performed By: #### L IVER, LIPID, BMP #### [facility] [address] [address] [address] Marcell Luque CO2 [Moles/Vol] 29.1 mmol/L Normal 21.0-32.0 [facility] Comment on above: Performed By: #### L IVER, LIPID, BMP #### [facility] [address] [address] [address] Marcell Luque Creatinine [Mass/Vol] 1.23 mg/dL Normal 0.70-1.30 [facility] Comment on above: Performed By: #### L IVER, LIPID, BMP #### [facility] [address] [place] [address] Dr. Marcell Luque EGFR-AF ENGLISH >60 Normal >=60 [facility] Comment on above: Performed By: #### L IVER, LIPID, BMP #### [facility] [address] [place] [address] Dr. Marcell Luque EGFR-NON AF ENGLISH 59 mL/min/1.73m2 Critically low >=60 [facility] Comment on above: Performed By: #### L IVER, LIPID, BMP #### [facility] [address] [place] [address] Dr. Marcell Luque Glucose [Mass/Vol] 358 mg/dL Critically high 74-106 [facility] Comment on above: Performed By: #### L IVER, LIPID, BMP #### [facility] [address] [place] [address] Dr. Marcell Luque Potassium [Moles/Vol] 4.2 mmol/L Normal 3.5-5.1 [facility] Comment on above: Performed By: #### L IVER, LIPID, BMP #### [facility] [address] [place] [address] Dr. Marcell Luque Sodium [Moles/Vol] 137 mmol/L Normal 136-145 [facility] Comment on above: Performed By: #### L IVER, LIPID, BMP #### [facility] [address] [address] [address] Marcell Luque Urea nitrogen [Mass/Vol] 10.0 mg/dL Normal 7.0-18.0 [facility] Comment on above: Performed By: #### L IVER, LIPID, BMP #### [facility] [address] [address] [address] Marcell Luque Urea nitrogen/Creatinine [Mass ratio] 8.1 mg/mg Normal [facility] Comment on above: Performed By: #### L KALPESH, LIPID, BMP #### [facility] [address] [address] [address] Marcell Luque VITAMIN D 25 OHon 01-26-2022 VIT D 25-OH 40.2 ng/mL Normal [facility] Comment on above: Performed By: #### P TT, PT #### [facility] [address] [place] [address] Dr. Marcell Luque VIT D RANGES SEE BELOW Normal [facility] Comment on above: Result Comment: <20 ng/mL Vit D deficient 20 - <30 ng/mL Vit D insufficient 30 - 100 ng/mL Vit D sufficient >100 ng/mL Potential Toxicity Performed By: #### P TT, PT #### [facility] [address] [place] [address] Dr. Marcell Luque Protein S Activityon 019 Protein [Mass/Vol] 101 % Normal 77-116 [facility] Comment on above: Result Comment: Patients on [...] APA, PTT, PT, FA8, DRVT, PROCAC, PROSAC ####[id number] [place] [address] lab Director: Stas Irving MD APTTon 06-15-2019 aPTT Coag (Bld) [Time] 29.6 s Normal 20.5-30.5 [facility] Comment on above: Performed By: #### H OCYS, APA, PTT, PT, FA8, DRVT, PROCAC, PROSAC ####[facility] [address] [place], [place] [id number] lab Director: Stas Irving MD Dilute Deepak Viperon 06-15 Dilute Deepak Viper Negative Normal [facility] Comment on above: Performed By: #### H OCYS, APA, PTT, PT, FA8, DRVT, PROCAC, PROSAC ####[facility] [address] [place] [address] lab Director: Stas Irving MD Factor VIII Activityon 06-15 Factor VIII Activity 173 % High 50-[address] [facility] Comment on above: Performed By: #### H OCYS, APA, PTT, PT, FA8, DRVT, PROCAC, PROSAC ####[facility] [address] [place] [id number] lab Director: Stas Irving MD PTon 06-15-2019 INR Coag (PPP) [Relative time] 1.1 {INR} Normal [facility] Comment on above: Result Comment: Therapeutic Range: Moderate Anticoagulant Intensity: INR = 2.0-3.0 High Anticoagulant Intensity: INR = 2.5-3.5 Performed By: #### H OCYS, APA, PTT, PT, FA8, DRVT, PROCAC, PROSAC ####[facility] [address] [place] [address] lab Director: Stas Irving MD PT Coag (PPP) [Time] 11.8 s Normal 9.0-12.[address] [facility] Comment on above: Performed By: #### H OCYS, APA, PTT, PT, FA8, DRVT, PROCAC, PROSAC ####[facility] [address] [place], [place] [id number] lab Director: Stas Irving MD Protein C Activityon 019 Protein [Mass/Vol] 130 % Normal >80 [facility] Comment on above: Result Comment: Patients on [...] APA, PTT, PT, FA8, DRVT, PROCAC, PROSAC ####[facility] [place] [address] Lab Director: Stas Irving MD Anti-Phospholipid Abon 06-12 Antiphospholipid IgA 15.3 APU High <[address] [facility] Comment on above: Result Comment: Reference Range: 12 - 15 Equivocal >15 Positive Performed By: #### H OCYS, APA, PTT, PT, FA8, DRVT, PROCAC, PROSAC ####[facility] [place] [id number] lab Director: Stas Irving MD Antiphospholipid IgG 2.7 GPU Normal <[address] [facility] Comment on above: Result Comment: Reference Range: 20.0 - 29.9 Low Positive 30.0 - 79.9 Moderate Positive >79.9 High Positive Performed By: #### H OCYS, APA, PTT, PT, FA8, DRVT, PROCAC, PROSAC ####[facility] [place] [address] lab Director: Stas Irving MD Antiphospholipid IgM 4.7 MPU Normal <[address] [facility] Comment on above: Result Comment: Reference Range: 20.0 - 29.9 Low Positive 30.0 - 79.9 Moderate Positive >79.9 High Positive Performed By: #### H OCYS, APA, PTT, PT, FA8, DRVT, PROCAC, PROSAC ####[facility] [place] [address] Lab Director: Stas Irving MD Basic Metabolic Panelon 05-22 Anion gap [Moles/Vol] 12 mmol/L 9 - 17 mmol/L [place] Bun/Cre Ratio NOT REPORTED [place] Calcium [Mass/Vol] 9.6 mg/dL 8.6 - 10. 4 mg/dL [place] Chloride [Moles/Vol] 97 mmol/L Low 98 - 10 7 mmol/L [place] CO2 [Moles/Vol] 29 mmol/L 20 - 31 mmol/L [place] Creatinine [Mass/Vol] 1.08 mg/dL 0.7 - 1.2 mg/dL [place] GFR >60 >60 mL/min [place], [place] GFR Non- >60 >60 mL/min [place] GFR/1.73 sq M predicted among non-blacks MDRD (S/P/Bld) [Vol rate/Area] [place], [place] Comment on above: Average GFR for 60-6 9 years old: 85 mL/min/1.73sq m Chronic Kidney Disease: <60 mL/min/1.73sq m Kidney failure: <15 mL/min/1.73sq m eGFR calculated using average adult body mass. Additional eGFR calculator available at: http://www.[employer]/multiple_crcl_2012.htm GFR/1.73 sq M predicted among non-blacks MDRD (S/P/Bld) [Vol rate/Area] NOT REPORTED [place], [place] Glucose [Mass/Vol] 198 mg/dL High 70 - 99 mg/dL [place], [place] Interpretation and review of laboratory results Abnormal [place] Potassium [Moles/Vol] 3.9 mmol/L 3.7 - 5.3 mmol/L [place] Sodium [Moles/Vol] 138 mmol/L 135 - 144 mmol/L [place] Urea nitrogen [Mass/Vol] 14 mg/dL 8 - 23 mg/dL [place] Basic Metabolic Profon 06-09 (cont.) Normal [facility] Comment on above: Result Comment: Aver age GFR for 60-69 years old: 85 mL/min/1.73sq m Chronic Kidney Disease: <60 mL/min/1.73sq m Kidney failure: <15 mL/min/1.73sq m eGFR calculated using average adult body mass. Additional eGFR calculator available at: http://www.[employer]/multiple_crcl_2012.htm Performed By: #### C DP, BMP ####[facility] [address] [place] [address])[phone] Director: Stas Irving MD Anion gap [Moles/Vol] 12 mmol/L Normal 9-17 [facility] Comment on above: Performed By: #### C DP, BMP ####[facility] [address] [place] [address])[phone] Director: Stas Irving MD Calcium [Mass/Vol] 9.6 mg/dL Normal 8.6-10.4 [facility] Comment on above: Performed By: #### C DP, BMP ####[facility] [address] [place] [address])[phone] Director: Stas Irving MD Chloride [Moles/Vol] 97 mmol/L Low 98-[address] [facility] Comment on above: Performed By: #### C DP, BMP ####[facility] [address] [place] [address] [phone] Director: Stas Irving MD CO2 [Moles/Vol] 29 mmol/L Normal 20-31 [facility] Comment on above: Performed By: #### C DP, BMP ####[facility] [address] [place], [place] [address] at [place])[phone] Director: Stas Irving MD Creatinine [Mass/Vol] 1.08 mg/dL Normal 0.70-1.20 [facility] Comment on above: Performed By: #### C DP, BMP ####[facility] [address] [place], [place] [phone] Director: Stas Irving MD GFR, Amer >60 Normal >60 [facility] Comment on above: Performed By: #### C DP, BMP ####[facility] [address] [place], [place] [phone] Director: Stas Irving MD GFR,non Amer >60 Normal >[address] [facility] Comment on above: Performed By: #### C DP, BMP ####[facility] [address] [place], [place] [phone] Director: Stas Irving MD Glucose [Mass/Vol] 198 mg/dL High 70-99 [facility] Comment on above: Performed By: #### C DP, BMP ####[address] [phone] Director: Stas Irving MD Potassium [Moles/Vol] 3.9 mmol/L Normal 3.7-5.3 [facility] Comment on above: Performed By: #### C DP, BMP ####[facility] G[address] [place], [place] [phone] Director: Stas Irving MD Sodium [Moles/Vol] 138 mmol/L Normal 135-144 [facility] Comment on above: Performed By: #### C DP, BMP ####[facility] [address] [place], [place] [phone] Director: Stas Irving MD Urea nitrogen [Mass/Vol] 14 mg/dL Normal 8-23 [facility] Comment on above: Performed By: #### C DP, BMP ####[facility] [address] [place], [place] [phone] Director: Stas Irving MD BUN/CRE Ratio NOT REPORTED Normal 9-20 [facility] Comment on above: Performed By: #### C DP, BMP ####[facility] [address] [place] [address] Lab Director: Stas Irving MD Staging: NOT REPORTED Normal [facility] Comment on above: Performed By: #### C DP, BMP ####[facility] [address]405 [place] [address] lab Director: Stas Irving MD CBC Auto Differentialon 05-22 Basophils (Bld) [#/Vol] 0.07 10*3/uL [place] Basophils/100 WBC (Bld) 1 % 0 - 2 % [place] Differential Type NOT REPORTED [place] Eosinophils (Bld) [#/Vol] 0.77 10*3/uL [place] Eosinophils/100 WBC (Bld) 10 % High 1 - 4 % [place] Erythrocyte distribution width (RBC) [Ratio] 13.7 % 11.8 - 14.4 % [place] Hematocrit (Bld) [Volume fraction] 53.7 % High 40.7 - 50.3 % [place] Hemoglobin (Bld) [Mass/Vol] 17.0 g/dL 13 - 17 g/dL [place] Immature granulocytes (Bld) [#/Vol] 10*3/uL [place] Immature granulocytes (Bld) [#/Vol] 0 % 0 [place] Interpretation and review of laboratory results Abnormal [place] Lymphocytes (Bld) [#/Vol] 2.66 10*3/uL [place] Lymphocytes/100 WBC (Bld) 36 % 24 - 43 % [place] MCH (RBC) [Entitic mass] 28.3 pg 25.2 - 33.5 pg [place] MCHC (RBC) [Mass/Vol] 31.7 g/dL 28.4 - 34.8 g/dL [place] MCV (RBC) [Entitic vol] 89.5 fL 82.6 - 102.9 fL [place] Monocytes (Bld) [#/Vol] 0.89 10*3/uL [place] Monocytes/100 WBC (Bld) 12 % 3 - 12 % [place] Platelet mean volume (Bld) [Entitic vol] 10.9 fL 8.1 - 13.5 fL [place] Platelets (Bld) [#/Vol] NOT REPORTED [place] Platelets (Bld) [#/Vol] 189 10*3/uL [place] RBC (Bld) [#/Vol] 6.00 10*6/uL High 4.21 - 5.7 7 m/uL [place] RBC morphology finding Nom (Bld) NOT REPORTED [place] Segmented neutrophils/100 WBC (Bld) 41 % 36 - 65 % [place] Segs Absolute 3.07 [place] WBC (Bld) [#/Vol] 0.0 10*3/uL 0.0 per 10 0 WBC [place] WBC (Bld) [#/Vol] 7.5 10*3/uL [place] WBC Morphology NOT REPORTED [place] CBC with Diffon 06-09-2019 Abs. Basophil 0.07 k/uL Normal 0.00-0.20 [facility] Comment on above: Performed By: #### C DP, BMP ####[place] [address] Lab Director: Stas Irving MD Abs.Imm.Granulocyte <0.03 Normal 0.00-0.30 [facility] Comment on above: Performed By: #### C DP, BMP ####[facility] [address] [place] [address] Lab Director: Stas Irving MD Abs.Neutrophil (Seg) 3.07 k/uL Normal 1.50-8.[address] [facility] Comment on above: Performed By: #### C DP, BMP ####[facility] [address] [place] [address] Lab Director: Stas Irving MD Basophils/100 WBC (Bld) 1 % Normal 0-2 [facility] Comment on above: Performed By: #### C DP, BMP ####[address] [phone] Director: Stas Irving MD Eosinophils (Bld) [#/Vol] 0.77 10*3/uL High 0.00-0.44 [facility] Comment on above: Performed By: #### C DP, BMP ####[address] [address] [place])[phone] Director: Stas Irving MD Eosinophils/100 WBC (Bld) 10 % High 1-4 [facility] Comment on above: Performed By: #### C DP, BMP ####[address] [address] [place])[phone] Director: Stas Irving MD Erythrocyte distribution width (RBC) [Ratio] 13.7 % Normal 11.8-14.4 [facility] Comment on above: Performed By: #### C DP, BMP ####[address] [address] [place])[phone] Director: Stas Irving MD Hematocrit (Bld) [Volume fraction] 53.7 % High 40.7-50.3 [facility] Comment on above: Performed By: #### C DP, BMP ####[address] [address] [place])[phone] Director: Stas Irving MD Hemoglobin (Bld) [Mass/Vol] 17.0 g/dL Normal 13.0-17.0 [facility] Comment on above: Performed By: #### C DP, BMP ####[address] [phone])[phone] Director: Stas Irving MD Immature granulocytes (Bld) [#/Vol] 0 % Normal 0 [facility] Comment on above: Performed By: #### C DP, BMP ####[place], [place] [address] [place])[phone] Director: Stas Irving MD Lymphocytes (Bld) [#/Vol] 2.66 10*3/uL Normal 1.10-3.70 [facility] Comment on above: Performed By: #### C DP, BMP ####[place], [place] [address] [place])[phone] Director: Stas Irving MD Lymphocytes/100 WBC (Bld) 36 % Normal 24-43 [facility] Comment on above: Performed By: #### C DP, BMP ####[place], [place] [address] [place])[phone] Director: Stas Irving MD MCH (RBC) [Entitic mass] 28.3 pg Normal 25.2-33.5 [facility] Comment on above: Performed By: #### C DP, BMP ####[place], [place] [address] [place])[phone] Director: Stas Irving MD MCHC (RBC) [Mass/Vol] 31.7 g/dL Normal 28.4-34.8 [facility] Comment on above: Performed By: #### C DP, BMP ####[place], [place] [address] [place])[phone] Director: Stas Irving MD MCV (RBC) [Entitic vol] 89.5 fL Normal 82.6-102.9 [facility] Comment on above: Performed By: #### C DP, BMP ####[place], [place] [address] [place])[phone] Director: Stas Irving MD Monocytes (Bld) [#/Vol] 0.89 10*3/uL Normal 0.10-1.20 [facility] Comment on above: Performed By: #### C DP, BMP ####[facility] [address] [place], [place] [phone] Director: Stas Irving MD Monocytes/100 WBC (Bld) 12 % Normal 3-12 [facility] Comment on above: Performed By: #### C DP, BMP ####[facility] [address] [place] [address] Lab Director: Stas Irving MD Neutrophil (Seg) 41 % Normal 36-65 [facility] Comment on above: Performed By: #### C DP, BMP ####[place] [place], [place] [id number])[phone] Director: Stas Irving MD NRBC Automated 0.0 per 100 WBC Normal 0.0 [facility] Comment on above: Performed By: #### C DP, BMP ####[address] [address] Lab Director: Stas Irving MD Platelet mean volume (Bld) [Entitic vol] 10.9 fL Normal 8.1-13.5 [facility] Comment on above: Performed By: #### C DP, BMP ####[facility] L[address]ch[address]ml[address]3643 [place] [address] Lab Director: Stas Irving MD Platelets (Bld) [#/Vol] 189 10*3/uL Normal 138-453 [facility] Comment on above: Performed By: #### C DP, BMP ####[facility] [address] [place] [address] Lab Director: Stas Irving MD RBC (Bld) [#/Vol] 6.00 10*6/uL High 4.21-5.77 [facility] Comment on above: Performed By: #### C DP, BMP ####[facility] [address] [place] [address] Lab Director: Stas Irving MD WBC (Bld) [#/Vol] 7.5 10*3/uL Normal 3.5-11.3 [facility] Comment on above: Performed By: #### C DP, BMP ####[facility] [address] [place], [place] [phone] Director: Stas Irving MD Auto Diff Performed NOT REPORTED Normal [facility] Comment on above: Performed By: #### C DP, BMP ####[facility] [address] [place] [address] [phone] Director: Stas Irving MD Platelets (Bld) [#/Vol] NOT REPORTED Normal [facility] Comment on above: Performed By: #### C DP, BMP ####[address] [address] Lab Director: Stas Irving MD RBC morphology finding Nom (Bld) NOT REPORTED Normal [facility] Comment on above: Performed By: #### C DP, BMP ####[address] [address] Lab Director: Stas Irving MD WBC Morphology NOT REPORTED Normal [facility] Comment on above: Performed By: #### C DP, BMP ####[address] [address] Lab Director: Stas Irving MD DNA Testingon 06-09-2019 DNA Testing (NOTE) [id number] [facility] MOLECULAR PATHOLOGY LABORATORY [address] [place], [place] [address] FACTOR V LEIDEN MUTATION ANALYSIS REPORT [facility] Aron Llanes MD, Ravinder Pratt MD Specimen(s) Received: Peripheral blood, FVLI Clinical Information: CVA RESULTS: MOLECULAR GENETIC DIAGNOSIS: Negative for Factor V Leiden Mutation INTERPRETATION: The Factor V Leiden mutation (1691GA) [c.1601G>A(p.Gmw887Pm n)] was not detected in this study. This patient may, however, still be at risk for venous thrombosis due to another genetic predisposition including the Factor II (Prothrombin 91947QR) mutation or either of the 5, 10-methylenetetrahydr ofolate reductase (MTHFR) mutations (677T and H4166X) Additional molecular testing is available for these [...] which predicts a single amino acid replacement ([id number]) at one of three activated protein C [...] the Invader Factor V test that utilizes Gekko chemistry for detecting gene-specific sequences. Target amplification [...] Invader and Cleavase are registered trademarks of [employer] This test is performed pursuant to an agreement with [employer] Electronically Signed Out Ravinder Pratt M.D. Normal [facility] Comment on above: Performed By: #### P PPFVL ####[address] [id number] Lab Director: Stas Irving MD DNA Testing (NOTE) [id number] [facility] MOLECULAR PATHOLOGY LABORATORY [address] [place], [place] [address] FACTOR II (PROTHROMBIN) MUTATION ANALYSIS REPORT [place] [facility] Aron Llanes MD, Ravinder Pratt MD Specimen(s) Received: Peripheral blood, PTI Clinical Information: CVA RESULTS: MOLECULAR GENETIC DIAGNOSIS: Negative for Prothrombin 56643K Mutation INTERPRETATION: The Factor II (Prothrombin) mutation (35894VH) [c.*97G>A] was not detected in this study. This patient may, however, still be at risk for venous thrombosis due to another genetic predisposition including the Factor V Leiden (1691GA) mutation or either of the 5, 10-methylenetetrahydr ofolate reductase (MTHFR) mutations (677T and E4044A). Additional molecular testing is available for these [...] been identified in exon 14 at position 47461 of the prothrombin gene (45879NM). This allele has a population frequency of 1.2% and is associated with a 2.8 fold increased risk of venous thrombosis in individuals of [place] ancestry. Patient DNA is assayed for the presence of wild type or mutant gene sequences in the Factor II (Prothrombin) gene by the Invader Factor II test that utilizes Gekko chemistry for detecting gene-specific sequences. Target amplification [...] Invader and Cleavase are registered trademarks of [employer] This test is performed pursuant to an agreement with [employer] Electronically Signed Out Ravinder Pratt M.D. Normal [facility] Comment on above: Performed By: #### P PPPT ####[facility] [address] [place] [address] [id number] Lab Director: Stas Irving MD Homocysteineon 06-09-2019 Homocysteine 9.4 umol/L Normal <15.0 [facility] Comment on above: Performed By: #### H OCYS, APA, PTT, PT, FA8, DRVT, PROCAC, PROSAC ####[facility] [address] [place], [place] [id number] lab Director: Stas Irving MD Homocysteine, Serumon 2018 Homocysteine 9.4 umol/L <15.0 [facility], [place] POC Glucose Fingerstickon Glucose [Mass/Vol] 276 mg/dL High 75 - 110 mg/dL [place], [place] Interpretation and review of laboratory results Abnormal [place] Glucose [Mass/Vol] 190 mg/dL High 75 - 110 mg/dL [place] Interpretation and review of laboratory results Abnormal [place] Basic Metabolic Panelon 05-22 Anion gap [Moles/Vol] 14 mmol/L 9 - 17 mmol/L [place] Bun/Cre Ratio NOT REPORTED [place] Calcium [Mass/Vol] 9.2 mg/dL 8.6 - 10. 4 mg/dL [place] Chloride [Moles/Vol] 96 mmol/L Low 98 - 10 7 mmol/L [place] CO2 [Moles/Vol] 24 mmol/L 20 - 31 mmol/L [place] Creatinine [Mass/Vol] 0.79 mg/dL 0.7 - 1.2 mg/dL [place] GFR >60 >60 mL/min [place] GFR Non- >60 >60 mL/min [place] GFR/1.73 sq M predicted among non-blacks MDRD (S/P/Bld) [Vol rate/Area] NOT REPORTED [place] GFR/1.73 sq M predicted among non-blacks MDRD (S/P/Bld) [Vol rate/Area] [place] Comment on above: Average GFR for 60-6 9 years old: 85 mL/min/1.73sq m Chronic Kidney Disease: <60 mL/min/1.73sq m Kidney failure: <15 mL/min/1.73sq m eGFR calculated using average adult body mass. Additional eGFR calculator available at: http://www.SensorLogic.Optinuity/multiple_crcl_2012.htm Glucose [Mass/Vol] 225 mg/dL High 70 - 99 mg/dL [place] Interpretation and review of laboratory results Abnormal [place] Potassium [Moles/Vol] 3.3 mmol/L Low 3.7 - 5.3 mmol/L [place] Sodium [Moles/Vol] 134 mmol/L Low 135 - 144 mmol/L [place] Urea nitrogen [Mass/Vol] 11 mg/dL 8 - 23 mg/dL [place] Basic Metabolic Profon 06-08 (cont.) Normal [facility] Comment on above: Result Comment: Aver age GFR for 60-69 years old: 85 mL/min/1.73sq m Chronic Kidney Disease: <60 mL/min/1.73sq m Kidney failure: <15 mL/min/1.73sq m eGFR calculated using average adult body mass. Additional eGFR calculator available at: http://www.Embarke/multiple_crcl_2012.htm Performed By: #### S TROKE #### [facility] [address] [place] [address] [employer] Operator: Stas Irving MD Anion gap [Moles/Vol] 14 mmol/L Normal 9-17 [facility] Comment on above: Performed By: #### S TROKE #### [facility] [address] [place] [address] [employer] Operator: Stas Irving MD Calcium [Mass/Vol] 9.2 mg/dL Normal 8.6-10.4 [facility] Comment on above: Performed By: #### S TROKE #### [facility] [address] [place] [address] [employer] Operator: Stas Irving MD Chloride [Moles/Vol] 96 mmol/L Low 98-[address] [facility] Comment on above: Performed By: #### S TROKE #### [facility] [employer] [address] [place] [address] [employer] Operator: Stas Irving MD CO2 [Moles/Vol] 24 mmol/L Normal 20-31 [facility] Comment on above: Performed By: #### S TROKE #### [facility] [address] [place] [address] [employer] Operator: Stas Irving MD Creatinine [Mass/Vol] 0.79 mg/dL Normal 0.70-1.20 [facility] Comment on above: Performed By: #### S TOREYKE #### [facility] [employer] [address] [place] [address] [employer] Operator: Stas Irving MD GFR, Amer >60 Normal >60 [facility] Comment on above: Performed By: #### S TOREYKE #### [facility] [employer] [address] [place] [address] [employer] Operator: Stas Irving MD GFR,non Amer >60 Normal >[address] [facility] Comment on above: Performed By: #### S MAGDY #### [address] [address] [employer] Operator: Stas Irving MD Glucose [Mass/Vol] 225 mg/dL High 70-99 [facility] Comment on above: Performed By: #### S MAGDY #### [address] [address] [employer] Operator: Stas Irving MD Potassium [Moles/Vol] 3.3 mmol/L Low 3.7-5.3 [facility] Comment on above: Performed By: #### S TOREYKE #### [facility] [employer] [address] [place] [address] [employer] Operator: Stas Irving MD Sodium [Moles/Vol] 134 mmol/L Low 135-144 [facility] Comment on above: Performed By: #### S TOREYKE #### [facility] [employer] [address] [place] [address] [employer] Operator: Stas Irving MD Urea nitrogen [Mass/Vol] 11 mg/dL Normal 8-23 [facility] Comment on above: Performed By: #### S TOREYKE #### [facility] [address] [place], [place] [phone] [employer] Operator: Stas Irving MD BUN/CRE Ratio NOT REPORTED Normal 05-11 [facility] Comment on above: Performed By: #### S TROKE #### [facility] [address] [place], [place] [phone] [employer] Operator: Stas Irving MD Staging: NOT REPORTED Normal [facility] Comment on above: Performed By: #### S TROKE #### [facility] [address] [place], [place] [phone] [employer] Operator: Stas Irving MD CBC Auto Differentialon 05-22 Basophils (Bld) [#/Vol] 0.06 10*3/uL [place] Basophils/100 WBC (Bld) 1 % 0 - 2 % [place] Differential Type NOT REPORTED [place] Eosinophils (Bld) [#/Vol] 0.56 10*3/uL High [place] Eosinophils/100 WBC (Bld) 8 % High 1 - 4 % [place] Erythrocyte distribution width (RBC) [Ratio] 13.9 % 11.8 - 14.4 % [place] Hematocrit (Bld) [Volume fraction] 50.9 % High 40.7 - 50.3 % [place] Hemoglobin (Bld) [Mass/Vol] 16.8 g/dL 13 - 17 g/dL [place] Immature granulocytes (Bld) [#/Vol] 1 % High 0 [place] Immature granulocytes (Bld) [#/Vol] 0.04 10*3/uL [place] Interpretation and review of laboratory results Abnormal [place] Lymphocytes (Bld) [#/Vol] 2.28 10*3/uL [place] Lymphocytes/100 WBC (Bld) 32 % 24 - 43 % [place] MCH (RBC) [Entitic mass] 28.6 pg 25.2 - 33.5 pg [place] MCHC (RBC) [Mass/Vol] 33.0 g/dL 28.4 - 34.8 g/dL [place] MCV (RBC) [Entitic vol] 86.6 fL 82.6 - 102.9 fL [place] Monocytes (Bld) [#/Vol] 0.79 10*3/uL [place] Monocytes/100 WBC (Bld) 11 % 3 - 12 % [place] Platelet mean volume (Bld) [Entitic vol] 12.0 fL 8.1 - 13.5 fL [place] Platelets (Bld) [#/Vol] 285 10*3/uL [place] Platelets (Bld) [#/Vol] NOT REPORTED [place] RBC (Bld) [#/Vol] 5.88 10*6/uL High 4.21 - 5.7 7 m/uL [place] RBC morphology finding Nom (Bld) NOT REPORTED [place] Segmented neutrophils/100 WBC (Bld) 47 % 36 - 65 % [place] Segs Absolute 3.38 [place] WBC (Bld) [#/Vol] 7.1 10*3/uL [place] WBC (Bld) [#/Vol] 0.3 10*3/uL High 0.0 per 10 0 WBC [place] WBC Morphology NOT REPORTED [place] CBC with Diffon 06-08-2019 Abs. Basophil 0.06 k/uL Normal 0.00-0.20 [facility] Comment on above: Performed By: #### S TROKE #### [facility] [employer] [address] [place], [place] [phone] Chemical [employer] Operator: Stas Irving MD Abs.Imm.Granulocyte 0.04 k/uL Normal 0.00-0.30 [facility] Comment on above: Performed By: #### S TROKE #### [facility] [employer] [address] [place], [place] [phone] Chemical [employer] Operator: Stas Irving MD Abs.Neutrophil (Seg) 3.38 k/uL Normal 1.50-8.[address] [facility] Comment on above: Performed By: #### S MAGDY #### [address] [address] [employer] Operator: Stas Irving MD Basophils/100 WBC (Bld) 1 % Normal 0-2 [facility] Comment on above: Performed By: #### S MAGDY #### [address] [address] [employer] Operator: Stas Irving MD Eosinophils (Bld) [#/Vol] 0.56 10*3/uL High 0.00-0.44 [facility] Comment on above: Performed By: #### S MAGDY #### [place] [address] [employer] Operator: Stas Irving MD Eosinophils/100 WBC (Bld) 8 % High 1-4 [facility] Comment on above: Performed By: #### S MAGDY #### [address] [address] [employer] Operator: Stas Irving MD Erythrocyte distribution width (RBC) [Ratio] 13.9 % Normal 11.8-14.4 [facility] Comment on above: Performed By: #### S MAGDY #### [address] [address] [employer] Operator: Stas Irving MD Hematocrit (Bld) [Volume fraction] 50.9 % High 40.7-50.3 [facility] Comment on above: Performed By: #### S MAGDY #### [address] [address] [employer] Operator: Stas Irving MD Hemoglobin (Bld) [Mass/Vol] 16.8 g/dL Normal 13.0-17.0 [facility] Comment on above: Performed By: #### S TOREYKE #### [address] [address] [employer] Operator: Stas Irving MD Immature granulocytes (Bld) [#/Vol] 1 % High 0 [facility] Comment on above: Performed By: #### S TOREYKE #### [address] [address] [employer] Operator: Stas Irving MD Lymphocytes (Bld) [#/Vol] 2.28 10*3/uL Normal 1.10-3.70 [facility] Comment on above: Performed By: #### S MAGDY #### [address] [address] Chemical Process Operator: Stas Irving MD Lymphocytes/100 WBC (Bld) 32 % Normal 24-43 [facility] Comment on above: Performed By: #### S MAGDY #### [address] [address] [employer] Operator: Stas Irving MD MCH (RBC) [Entitic mass] 28.6 pg Normal 25.2-33.5 [facility] Comment on above: Performed By: #### S TOREYKE #### [address] [address] Chemical [employer] Operator: Stas Irving MD MCHC (RBC) [Mass/Vol] 33.0 g/dL Normal 28.4-34.8 [facility] Comment on above: Performed By: #### S TOREYKE #### [address] [address] [employer] Operator: Stas Irving MD MCV (RBC) [Entitic vol] 86.6 fL Normal 82.6-102.9 [facility] Comment on above: Performed By: #### S MAGDY #### [address] [address] [employer] Process Operator: Stas Irving MD Monocytes (Bld) [#/Vol] 0.79 10*3/uL Normal 0.10-1.20 [facility] Comment on above: Performed By: #### S TOREYKE #### [address] [address] [employer] Operator: Stas Irving MD Monocytes/100 WBC (Bld) 11 % Normal 3-12 [facility] Comment on above: Performed By: #### S TROKE #### [address] [address] [employer] Operator: Stas Irving MD Neutrophil (Seg) 47 % Normal 36-65 [facility] Comment on above: Performed By: #### S MAGDY #### [address] [address] [employer] Operator: Stas Irving MD NRBC Automated 0.3 per 100 WBC High 0.0 [facility] Comment on above: Performed By: #### S TOREYKE #### [address] [address] [employer] Operator: Stas Irving MD Platelet mean volume (Bld) [Entitic vol] 12.0 fL Normal 8.1-13.5 [facility] Comment on above: Performed By: #### S TOREYKE #### [address] [address] [employer] Operator: Stas Irving MD Platelets (Bld) [#/Vol] 285 10*3/uL Normal 138-453 [facility] Comment on above: Performed By: #### S TROKE #### [address] [address] [employer] Operator: Stas Irving MD RBC (Bld) [#/Vol] 5.88 10*6/uL High 4.21-5.77 [facility] Comment on above: Performed By: #### S TROKE #### [address] [address] [employer] Operator: Stas Irving MD WBC (Bld) [#/Vol] 7.1 10*3/uL Normal 3.5-11.3 [facility] [facility] Comment on above: Performed By: #### S TOREYKE #### [address] [address] Chemical Process Operator: Stas Irving MD Auto Diff Performed NOT REPORTED Normal [facility] Comment on above: Performed By: #### S TOREYKE #### [address] [address] Chemical Process Operator: Stas Irving MD Platelets (Bld) [#/Vol] NOT REPORTED Normal [facility] Comment on above: Performed By: #### S TOREYKE #### [address] [address] Chemical Process Operator: Stas Irving MD RBC morphology finding Nom (Bld) NOT REPORTED Normal [facility] Comment on above: Performed By: #### S TOREYKE #### [address] [address] Chemical Process Operator: Stas Irving MD WBC Morphology NOT REPORTED Normal [facility] Comment on above: Performed By: #### S TROKE #### [facility] [employer] [address] [place] [address] Chemical Process Operator: Stas Irving MD Magnesiumon 06-08-2019 Magnesium [Mass/Vol] 2.0 mg/dL Normal 1.6-2.[address] [facility] Comment on above: Performed By: #### S TROKE #### [facility] [employer] [address] [place] [address] Chemical Process Operator: Stas Irving MD Magnesium [Mass/Vol] 2.0 mg/dL 1.6 - 2 .6 mg/dL [place], [place] POC Glucose Fingerstickon Glucose [Mass/Vol] 288 mg/dL High 75 - 110 mg/dL [place], [place] Interpretation and review of laboratory results Abnormal [place] Glucose [Mass/Vol] 350 mg/dL High 75 - 110 mg/dL [place] Interpretation and review of laboratory results Abnormal [place] Glucose [Mass/Vol] 238 mg/dL High 75 - 110 mg/dL [place] Interpretation and review of laboratory results Abnormal [place] Glucose [Mass/Vol] 244 mg/dL High 75 - 110 mg/dL [place] Interpretation and review of laboratory results Abnormal [place] Phosphoruson 06-08-2019 Phosphate [Mass/Vol] 4.5 mg/dL 2.5 - 4 .5 mg/dL [place] Phosphorus, Inorg.on 019 Phosphorus, Inorg. 4.5 mg/dL Normal 2.5-4.5 [facility] Comment on above: Performed By: #### C DP, BMP, MG, CINTHYA ####[facility] [id number] [place] [address] [facility] Director: Stas Irving MD VL DUP LOWER EXTREMITY VENOU S BILATERALon 06-08-2019 [facility] Vascular Lower Extremities DVT Study Procedure Patient Name [facility] Date of Study 06/08/2019 EUNICE Date of 1955 Gender Male Age 63 year(s) Race Black Room Number 0515 Height: 72 inch, 182.88 cm Corporate ID [id number] Weight: 220 pounds, 99.8 kg # Patient Acct [id number] BSA: 2.22 m^2 BMI: 29.84 kg/m^2 # MR # [id number] Helpdesk Analyst Rina Frausto Interpreting Omer Oneil Physician Referring Referring Physician DYLON VICK FORM TAMPING MACHINE OPERATOR-BRASS MOLDER HELPER Nurse Practitioner Procedure Type of Study: Veins: [...] !Phasic! ! ! + -------+------+------ + + Service at Home [facility] [place] Nav, Rashi Incoming Cardio Results From [employer] - 06/08/2019 6:36 PM EDT [facility] Vascular Lower Extremities DVT Study Procedure Patient Name HEIDELBURG Date of Study 06/08/2019 EUNICE Alcantara Date of 1955 Gender Male Age 63 year(s) Race Black Room Number 0515 Height: 72 inch, 182.88 cm Corporate ID [id number] Weight: 220 pounds, 99.8 kg # Patient Acct [id number] BSA: 2.22 m^2 BMI: 29.84 kg/m^2 # MR # [id number] Helpdesk Analyst Rina Frausto Interpreting Omer Oneil Physician Referring Referring Physician DYLON VICK FORM TAMPING MACHINE OPERATOR-BRASS MOLDER HELPER Nurse Practitioner Procedure Type of Study: Veins: [...] !Phasic! ! ! + -------+------+------ + + [place], [place] Basic Metabolic Panelon 05-22 Anion gap [Moles/Vol] 12 mmol/L 9 - 17 mmol/L [place] Bun/Cre Ratio NOT REPORTED [place] Calcium [Mass/Vol] 9.3 mg/dL 8.6 - 10. 4 mg/dL [place] Chloride [Moles/Vol] 97 mmol/L Low 98 - 10 7 mmol/L [place] CO2 [Moles/Vol] 26 mmol/L 20 - 31 mmol/L [place] Creatinine [Mass/Vol] 0.76 mg/dL 0.7 - 1.2 mg/dL [place] GFR >60 >60 mL/min [place], [place] GFR Non- >60 >60 mL/min [place] GFR/1.73 sq M predicted among non-blacks MDRD (S/P/Bld) [Vol rate/Area] NOT REPORTED [place] GFR/1.73 sq M predicted among non-blacks MDRD (S/P/Bld) [Vol rate/Area] [place] Comment on above: Average GFR for 60-6 9 years old: 85 mL/min/1.73sq m Chronic Kidney Disease: <60 mL/min/1.73sq m Kidney failure: <15 mL/min/1.73sq m eGFR calculated using average adult body mass. Additional eGFR calculator available at: http://www.Embarke/multiple_crcl_2012.htm Glucose [Mass/Vol] 232 mg/dL High 70 - 99 mg/dL [place] Potassium [Moles/Vol] 3.4 mmol/L Low 3.7 - 5.3 mmol/L [place] Sodium [Moles/Vol] 135 mmol/L 135 - 144 mmol/L [place] Urea nitrogen [Mass/Vol] 8 mg/dL 8 - 23 mg/dL [place] Basic Metabolic Profon 06-07 (cont.) Normal [facility] Comment on above: Result Comment: Aver age GFR for 60-69 years old: 85 mL/min/1.73sq m Chronic Kidney Disease: <60 mL/min/1.73sq m Kidney failure: <15 mL/min/1.73sq m eGFR calculated using average adult body mass. Additional eGFR calculator available at: http://www.Embarke/multiple_crcl_2012.htm Performed By: #### S TROKE #### [facility] [employer] [address] [place] [address] Chemical Process Operator: Stas Irving MD Anion gap [Moles/Vol] 12 mmol/L Normal 9-17 [facility] Comment on above: Performed By: #### S TROKE #### [facility] [employer] [address] [place] [address] Chemical Process Operator: Stas Irving MD Calcium [Mass/Vol] 9.3 mg/dL Normal 8.6-10.4 [facility] Comment on above: Performed By: #### S TROKE #### [facility] [address] [place] [address] Chemical Process Operator: Stas Irving MD Chloride [Moles/Vol] 97 mmol/L Low 98-[address] [facility] Comment on above: Performed By: #### S TROKE #### [facility] [employer] [address] [place] [address] Chemical Process Operator: Stas Irving MD CO2 [Moles/Vol] 26 mmol/L Normal 20-31 [facility] Comment on above: Performed By: #### S TROKE #### [facility] [address] [place] [address] Chemical Process Operator: Stas Irving MD Creatinine [Mass/Vol] 0.76 mg/dL Normal 0.70-1.20 [facility] Comment on above: Performed By: #### S TROKE #### [address] [address] Chemical Process Operator: Stas Irving MD GFR, Amer >60 Normal >60 [facility] Comment on above: Performed By: #### S TOREYKE #### [address] [address] Chemical Process Operator: Stas Irving MD GFR,non Amer >60 Normal >[address] [facility] Comment on above: Performed By: #### S TOREYKE #### [address] [address] Chemical Process Operator: Stas Irving MD Glucose [Mass/Vol] 232 mg/dL High 70-99 [facility] Comment on above: Performed By: #### S MAGDY #### [address] [address] Chemical Process Operator: Stas Irving MD Potassium [Moles/Vol] 3.4 mmol/L Low 3.7-5.3 [facility] Comment on above: Performed By: #### S TOREYKE #### [address] [address] Chemical Process Operator: Stas Irving MD Sodium [Moles/Vol] 135 mmol/L Normal 135-144 [facility] Comment on above: Performed By: #### S TOREYKE #### [address] [address] Chemical Process Operator: Stas Irving MD Urea nitrogen [Mass/Vol] 8 mg/dL Normal 8-23 [facility] Comment on above: Performed By: #### S MAGDY #### [facility] [address] [place], [place] [id number] Chemical Process Operator: Stas Irving MD BUN/CRE Ratio NOT REPORTED Normal 05-11 [facility] Comment on above: Performed By: #### S TROKE #### [facility] [address] [place], [place] [id number] Chemical Process Operator: Stas Irving MD Staging: NOT REPORTED Normal [facility] Comment on above: Performed By: #### S TROKE #### [facility] [address] [place], [place] [phone] Chemical Process Operator: Stas Irving MD CBC Auto Differentialon 05-22 Basophils (Bld) [#/Vol] 0.08 10*3/uL [place] Basophils/100 WBC (Bld) 1 % 0 - 2 % [place] Differential Type NOT REPORTED [place] Eosinophils (Bld) [#/Vol] 0.59 10*3/uL [place] Eosinophils/100 WBC (Bld) 8 % High 1 - 4 % [place] Erythrocyte distribution width (RBC) [Ratio] 13.6 % 11.8 - 14.4 % [place] Hematocrit (Bld) [Volume fraction] 51.5 % High 40.7 - 50.3 % [place] Hemoglobin (Bld) [Mass/Vol] 16.7 g/dL 13 - 17 g/dL [place] Immature granulocytes (Bld) [#/Vol] 0 % 0 [place] Immature granulocytes (Bld) [#/Vol] 10*3/uL [place] Interpretation and review of laboratory results Abnormal [place] Lymphocytes (Bld) [#/Vol] 2.32 10*3/uL [place] Lymphocytes/100 WBC (Bld) 32 % 24 - 43 % [place] MCH (RBC) [Entitic mass] 28.2 pg 25.2 - 33.5 pg [place] MCHC (RBC) [Mass/Vol] 32.4 g/dL 28.4 - 34.8 g/dL [place] MCV (RBC) [Entitic vol] 86.8 fL 82.6 - 102.9 fL [place] Monocytes (Bld) [#/Vol] 0.66 10*3/uL [place] Monocytes/100 WBC (Bld) 9 % 3 - 12 % [place] Platelet mean volume (Bld) [Entitic vol] 10.9 fL 8.1 - 13.5 fL [place] Platelets (Bld) [#/Vol] 196 10*3/uL [place] Platelets (Bld) [#/Vol] NOT REPORTED [place] RBC (Bld) [#/Vol] 5.93 10*6/uL High 4.21 - 5.7 7 m/uL [place] RBC morphology finding Nom (Bld) NOT REPORTED [place] Segmented neutrophils/100 WBC (Bld) 50 % 36 - 65 % [place] Segs Absolute 3.69 [place] WBC (Bld) [#/Vol] 7.4 10*3/uL [place] WBC (Bld) [#/Vol] 0.0 10*3/uL 0.0 per 10 0 WBC [place] WBC Morphology NOT REPORTED [place] CBC with Diffon 06-07-2019 Abs. Basophil 0.08 k/uL Normal 0.00-0.20 [facility] Comment on above: Performed By: #### S TROKE #### [facility] [place] [address] Chemical Process Operator: Stas Irving MD Abs.Imm.Granulocyte <0.03 Normal 0.00-0.30 [facility] Comment on above: Performed By: #### S TROKE #### [facility] [employer] [address] [place] [address] Chemical Process Operator: Stas Irving MD Abs.Neutrophil (Seg) 3.69 k/uL Normal 1.50-8.[address] [facility] Comment on above: Performed By: #### S MAGDY #### [address] [address] Chemical Process Operator: Stas Irving MD Basophils/100 WBC (Bld) 1 % Normal 0-2 [facility] Comment on above: Performed By: #### S MAGDY #### [place] [address] Chemical Process Operator: Stas Irving MD Eosinophils (Bld) [#/Vol] 0.59 10*3/uL High 0.00-0.44 [facility] Comment on above: Performed By: #### S MAGDY #### [place] [address] Chemical Process Operator: Stas Irving MD Eosinophils/100 WBC (Bld) 8 % High 1-4 [facility] Comment on above: Performed By: #### S MAGDY #### [place] [address] Chemical Process Operator: Stas Irving MD Erythrocyte distribution width (RBC) [Ratio] 13.6 % Normal 11.8-14.4 [facility] Comment on above: Performed By: #### S MAGDY #### [place] [address] Chemical Process Operator: Stas Irving MD Hematocrit (Bld) [Volume fraction] 51.5 % High 40.7-50.3 [facility] Comment on above: Performed By: #### S MAGDY #### [place] [address] Chemical Process Operator: Stas Irving MD Hemoglobin (Bld) [Mass/Vol] 16.7 g/dL Normal 13.0-17.0 [facility] Comment on above: Performed By: #### S TOREYKE #### [address] [address] Chemical Process Operator: Stas Irving MD Immature granulocytes (Bld) [#/Vol] 0 % Normal 0 [facility] Comment on above: Performed By: #### S TOREYKE #### [address] [address] Chemical Process Operator: Stas Irving MD Lymphocytes (Bld) [#/Vol] 2.32 10*3/uL Normal 1.10-3.70 [facility] Comment on above: Performed By: #### S MAGDY #### [address] [address] Chemical Process Operator: Stas Irving MD Lymphocytes/100 WBC (Bld) 32 % Normal 24-43 [facility] Comment on above: Performed By: #### S MAGDY #### [address] [address] Chemical Process Operator: Stas Irving MD MCH (RBC) [Entitic mass] 28.2 pg Normal 25.2-33.5 [facility] Comment on above: Performed By: #### S MAGDY #### [address] [address] Chemical Process Operator: Stas Irving MD MCHC (RBC) [Mass/Vol] 32.4 g/dL Normal 28.4-34.8 [facility] Comment on above: Performed By: #### S TOREYKE #### [address] [address] Chemical Process Operator: Stas Irving MD MCV (RBC) [Entitic vol] 86.8 fL Normal 82.6-102.9 [facility] Comment on above: Performed By: #### S MAGDY #### [address] [address] Chemical Process Operator: Stas Irving MD Monocytes (Bld) [#/Vol] 0.66 10*3/uL Normal 0.10-1.20 [facility] Comment on above: Performed By: #### S TOREYKE #### [address] [address] Chemical Process Operator: Stas Irving MD Monocytes/100 WBC (Bld) 9 % Normal 3-12 [facility] Comment on above: Performed By: #### S TOREYKE #### [address] [address] Chemical Process Operator: Stas Irving MD Neutrophil (Seg) 50 % Normal 36-65 [facility] Comment on above: Performed By: #### S MAGDY #### [address] [address] Chemical Process Operator: Stas Irving MD NRBC Automated 0.0 per 100 WBC Normal 0.0 [facility] Comment on above: Performed By: #### S TOREYKE #### [address] [address] Chemical Process Operator: Stas Irving MD Platelet mean volume (Bld) [Entitic vol] 10.9 fL Normal 8.1-13.5 [facility] Comment on above: Performed By: #### S TOREYKE #### [address] [address] Chemical Process Operator: Stas Irving MD Platelets (Bld) [#/Vol] 196 10*3/uL Normal 138-453 [facility] Comment on above: Performed By: #### S TOREYKE #### [address] [address] Chemical Process Operator: Stas Irving MD RBC (Bld) [#/Vol] 5.93 10*6/uL High 4.21-5.77 [facility] Comment on above: Performed By: #### S TROKE #### [address] [address] Chemical Process Operator: Stas Irving MD WBC (Bld) [#/Vol] 7.4 10*3/uL Normal 3.5-11.3 [facility] Comment on above: Performed By: #### S TROKE #### [address] [address] Chemical Process Operator: Stas Irving MD Auto Diff Performed NOT REPORTED Normal [facility] Comment on above: Performed By: #### S TOREYKE #### [address] [address] Chemical Process Operator: Stas Irving MD Platelets (Bld) [#/Vol] NOT REPORTED Normal [facility] Comment on above: Performed By: #### S TOREYKE #### [address] [address] Chemical Process Operator: Stas Irving MD RBC morphology finding Nom (Bld) NOT REPORTED Normal [facility] Comment on above: Performed By: #### S TROKE #### [address] [address] Chemical Process Operator: Stas Irving MD WBC Morphology NOT REPORTED Normal [facility] Comment on above: Performed By: #### S TROKE #### [facility] [employer] [address] [place] [address] Chemical Process Operator: Stas Irving MD CT HEAD WO CONTRASTon [...] Randolph Bustos MD 06/06/19 Final result Normal [facility] MAGNESIUMon 06-07-2019 Magnesium [Mass/Vol] 1.9 mg/dL 1.6 - 2 .6 mg/dL [place] MRI BRAIN WO CONTRASTon 05-22 MRI [...] Cas Berger MD 06/07/19 Final result Normal [facility] MRI Brain WO Contraston 05-22 1. Small [...] 06/07/2019to be communicated to a licensed caregiver. [facility], [place] EXAMINATION: MRI OF THE BRAIN WITHOUT CONTRAST [...] the left. BONES/SOFT TISSUES: No significant abnormalities. Service at Home [facility] [place], [place] Nav, Mhpn Incoming Radiant Results From [employer] - 06/07/2019 11:19 AM EDT EXAMINATION: MRI [...] 06/07/2019to be communicated to a licensed caregiver. [place] Magnesiumon 06-07-2019 Magnesium [Mass/Vol] 1.9 mg/dL Normal 1.6-2.[address] [facility] Comment on above: Performed By: #### S TROKE #### [facility] [address] [place] [address] Chemical Process Operator: Stas Irving MD Otheron 06-07-2019 Interpretation and review of laboratory results Abnormal [place] PHOSPHORUSon 06-07-2019 Phosphate [Mass/Vol] 5.4 mg/dL High 2.5 - 4 .5 mg/dL [place] POC Glucose Fingerstickon Glucose [Mass/Vol] 309 mg/dL High 75 - 110 mg/dL [place], [place] Interpretation and review of laboratory results Abnormal [place] Glucose [Mass/Vol] 330 mg/dL High 75 - 110 mg/dL [place], [place] Interpretation and review of laboratory results Abnormal [place] Glucose [Mass/Vol] 251 mg/dL High 75 - 110 mg/dL [place], [place] Interpretation and review of laboratory results Abnormal [place] Glucose [Mass/Vol] 273 mg/dL High 75 - 110 mg/dL [place], [place] Interpretation and review of laboratory results Abnormal [place] Phosphorus, Inorg.on 019 Phosphorus, Inorg. 5.4 mg/dL High 2.5-4.5 [facility] Comment on above: Performed By: #### S TROKE #### [facility] [address] [place] [address] Chemical Process Operator: Stas Irving MD BASIC METABOLIC PANELon 05-22 Anion gap [Moles/Vol] 16 mmol/L 9 - 17 mmol/L [place] Bun/Cre Ratio NOT REPORTED [place] Calcium [Mass/Vol] 9.2 mg/dL 8.6 - 10. 4 mg/dL [place] Chloride [Moles/Vol] 101 mmol/L 98 - 10 7 mmol/L [place] CO2 [Moles/Vol] 20 mmol/L 20 - 31 mmol/L [place] Creatinine [Mass/Vol] 0.48 mg/dL Low 0.7 - 1.2 mg/dL [place] GFR >60 >60 mL/min [place], [place] GFR Non- >60 >60 mL/min [place] GFR/1.73 sq M predicted among non-blacks MDRD (S/P/Bld) [Vol rate/Area] NOT REPORTED [place] GFR/1.73 sq M predicted among non-blacks MDRD (S/P/Bld) [Vol rate/Area] [place] Comment on above: Average GFR for 60-6 9 years old: 85 mL/min/1.73sq m Chronic Kidney Disease: <60 mL/min/1.73sq m Kidney failure: <15 mL/min/1.73sq m eGFR calculated using average adult body mass. Additional eGFR calculator available at: http://www.SensorLogic.Optinuity/multiple_crcl_2012.htm Glucose [Mass/Vol] 264 mg/dL High 70 - 99 mg/dL [place] Potassium [Moles/Vol] 3.9 mmol/L 3.7 - 5.3 mmol/L [place] Sodium [Moles/Vol] 137 mmol/L 135 - 144 mmol/L [place] Urea nitrogen [Mass/Vol] 5 mg/dL Low 8 - 23 mg/dL [place] Basic Metabolic Profon 06-06 (cont.) Normal [facility] Comment on above: Result Comment: Aver age GFR for 60-69 years old: 85 mL/min/1.73sq m Chronic Kidney Disease: <60 mL/min/1.73sq m Kidney failure: <15 mL/min/1.73sq m eGFR calculated using average adult body mass. Additional eGFR calculator available at: http://www.SensorLogic.Optinuity/multiple_crcl_2012.htm Performed By: #### C DP, BMP, LIPR, MG, CINTHYA, GLYHGB #### [facility] [employer] [address] [place] [address] Chemical Process Operator: Stas Irving MD Anion gap [Moles/Vol] 16 mmol/L Normal 9-17 [facility] Comment on above: Performed By: #### C DP, BMP, LIPR, MG, CINTHYA, GLYHGB #### [place] [address] Chemical Process Operator: Stas Irving MD Calcium [Mass/Vol] 9.2 mg/dL Normal 8.6-10.4 [facility] Comment on above: Performed By: #### C DP, BMP, LIPR, MG, CINTHYA, GLYHGB #### [address] [address] Chemical Process Operator: Stas Irving MD Chloride [Moles/Vol] 101 mmol/L Normal 98-[address] [facility] Comment on above: Performed By: #### C DP, BMP, LIPR, MG, CINTHYA, GLYHGB #### [facility] [employer] [address] [place] [address] Chemical Process Operator: Stas Irving MD CO2 [Moles/Vol] 20 mmol/L Normal 20-31 [facility] Comment on above: Performed By: #### C DP, BMP, LIPR, MG, CINTHYA, GLYHGB #### [facility] [employer] [address] [place] [address] Chemical Process Operator: Stas Irving MD Creatinine [Mass/Vol] 0.48 mg/dL Low 0.70-1.20 [facility] Comment on above: Performed By: #### C DP, BMP, LIPR, MG, CINTHYA, GLYHGB #### [address] [address] Chemical Process Operator: Stas Irving MD GFR, Amer >60 Normal >60 [facility] Comment on above: Performed By: #### C DP, BMP, LIPR, MG, CINTHYA, GLYHGB #### [address] [address] Chemical Process Operator: Stas Irving MD GFR,non Amer >60 Normal >[address] [facility] Comment on above: Performed By: #### C DP, BMP, LIPR, MG, CINTHYA, GLYHGB #### [address] [address] Chemical Process Operator: Stas Irving MD Glucose [Mass/Vol] 264 mg/dL High 70-99 [facility] Comment on above: Performed By: #### C DP, BMP, LIPR, MG, CINTHYA, GLYHGB #### [address] [address] Chemical Process Operator: Stas Irving MD Potassium [Moles/Vol] 3.9 mmol/L Normal 3.7-5.3 [facility] Comment on above: Performed By: #### C DP, BMP, LIPR, MG, CINTHYA, GLYHGB #### [address] [address] Chemical Process Operator: Stas Irving MD Sodium [Moles/Vol] 137 mmol/L Normal 135-144 [facility] Comment on above: Performed By: #### C DP, BMP, LIPR, MG, CINTHYA, GLYHGB #### [facility] [employer] [address] [place] [address] Chemical Process Operator: Stas Irving MD Urea nitrogen [Mass/Vol] 5 mg/dL Low 8-23 [facility] Comment on above: Performed By: #### C DP, BMP, LIPR, MG, CINTHYA, GLYHGB #### [facility] [address] [place] [address] Chemical Process Operator: Stas Irving MD BUN/CRE Ratio NOT REPORTED Normal 05-11 [facility] Comment on above: Performed By: #### C DP, BMP, LIPR, MG, CINTHYA, GLYHGB #### [facility] [address] [place], [place] [id number] Chemical Process Operator: Stas Irving MD Staging: NOT REPORTED Normal [facility] Comment on above: Performed By: #### C DP, BMP, LIPR, MG, CINTHYA, GLYHGB #### [facility] [address] [place], [place] [id number] Chemical Process Operator: Stas Irving MD CBC WITH AUTO DIFFERENTIALon 06-06-2019 Basophils (Bld) [#/Vol] 0.08 10*3/uL [place] Basophils/100 WBC (Bld) 1 % 0 - 2 % [place] Differential Type NOT REPORTED [place] Eosinophils (Bld) [#/Vol] 0.62 10*3/uL High [place] Eosinophils/100 WBC (Bld) 9 % High 1 - 4 % [place] Erythrocyte distribution width (RBC) [Ratio] 13.8 % 11.8 - 14.4 % [place] Hematocrit (Bld) [Volume fraction] 49.9 % 40.7 - 50.3 % [place] Hemoglobin (Bld) [Mass/Vol] 16.4 g/dL 13 - 17 g/dL [place] Immature granulocytes (Bld) [#/Vol] 10*3/uL [place] Immature granulocytes (Bld) [#/Vol] 0 % 0 [place] Interpretation and review of laboratory results Abnormal [place] Lymphocytes (Bld) [#/Vol] 2.13 10*3/uL [place] Lymphocytes/100 WBC (Bld) 29 % 24 - 43 % [place] MCH (RBC) [Entitic mass] 28.6 pg 25.2 - 33.5 pg [place] MCHC (RBC) [Mass/Vol] 32.9 g/dL 28.4 - 34.8 g/dL [place] MCV (RBC) [Entitic vol] 86.9 fL 82.6 - 102.9 fL [place] Monocytes (Bld) [#/Vol] 0.62 10*3/uL [place] Monocytes/100 WBC (Bld) 9 % 3 - 12 % [place] Platelet mean volume (Bld) [Entitic vol] 10.1 fL 8.1 - 13.5 fL [place] Platelets (Bld) [#/Vol] 221 10*3/uL [place] Platelets (Bld) [#/Vol] NOT REPORTED [place] RBC (Bld) [#/Vol] 5.74 10*6/uL 4.21 - 5.7 7 m/uL [place] RBC morphology finding Nom (Bld) NOT REPORTED [place] Segmented neutrophils/100 WBC (Bld) 52 % 36 - 65 % [place] Segs Absolute 3.86 [place] WBC (Bld) [#/Vol] 0.0 10*3/uL 0.0 per 10 0 WBC [place] WBC (Bld) [#/Vol] 7.3 10*3/uL [place] WBC Morphology NOT REPORTED [place] CBC with Diffon 06-06-2019 Abs. Basophil 0.08 k/uL Normal 0.00-0.20 [facility] Comment on above: Performed By: #### C DP, BMP, LIPR, MG, CINTHYA, GLYHGB #### [facility] [facility] [address] [place] [address] Chemical Process Operator: Stas Irving MD Abs.Imm.Granulocyte <0.03 Normal 0.00-0.30 [facility] Comment on above: Performed By: #### C DP, BMP, LIPR, MG, CINTHYA, GLYHGB #### [facility] [address] [place] [address] Chemical Process Operator: Stas Irving MD Abs.Neutrophil (Seg) 3.86 k/uL Normal 1.50-8.[address] [facility] Comment on above: Performed By: #### C DP, BMP, LIPR, MG, CINTHYA, GLYHGB #### [facility] [address] [place] [address] Chemical Process Operator: Stas Irving MD Basophils/100 WBC (Bld) 1 % Normal 0-2 [facility] Comment on above: Performed By: #### C DP, BMP, LIPR, MG, CINTHYA, GLYHGB #### [place] [address] Chemical Process Operator: Stas Irving MD Eosinophils (Bld) [#/Vol] 0.62 10*3/uL High 0.00-0.44 [facility] Comment on above: Performed By: #### C DP, BMP, LIPR, MG, CINTHYA, GLYHGB #### [facility] [address] [place] [address] Chemical Process Operator: Stas Irving MD Eosinophils/100 WBC (Bld) 9 % High 1-4 [facility] Comment on above: Performed By: #### C DP, BMP, LIPR, MG, CINTHYA, GLYHGB #### [facility] [address] [place] [address] Chemical Process Operator: Stas Irving MD Erythrocyte distribution width (RBC) [Ratio] 13.8 % Normal 11.8-14.4 [facility] Comment on above: Performed By: #### C DP, BMP, LIPR, MG, CINTHYA, GLYHGB #### [facility] [address] [place] [address] Chemical Process Operator: Stas Irving MD Hematocrit (Bld) [Volume fraction] 49.9 % Normal 40.7-50.3 [facility] Comment on above: Performed By: #### C DP, BMP, LIPR, MG, CINTHYA, GLYHGB #### [address] [address] Chemical Process Operator: Stas Irving MD Hemoglobin (Bld) [Mass/Vol] 16.4 g/dL Normal 13.0-17.0 [facility] Comment on above: Performed By: #### C DP, BMP, LIPR, MG, CINTHYA, GLYHGB #### [address] [address] Chemical Process Operator: Stas Irving MD Immature granulocytes (Bld) [#/Vol] 0 % Normal 0 [facility] Comment on above: Performed By: #### C DP, BMP, LIPR, MG, CINTHYA, GLYHGB #### [address] [address] Chemical Process Operator: Stas Irving MD Lymphocytes (Bld) [#/Vol] 2.13 10*3/uL Normal 1.10-3.70 [facility] Comment on above: Performed By: #### C DP, BMP, LIPR, MG, CINTHYA, GLYHGB #### [address] [address] Chemical Process Operator: Stas Irving MD Lymphocytes/100 WBC (Bld) 29 % Normal 24-43 [facility] Comment on above: Performed By: #### C DP, BMP, LIPR, MG, CINTHYA, GLYHGB #### [address] [address] Chemical Process Operator: Stas Irving MD MCH (RBC) [Entitic mass] 28.6 pg Normal 25.2-33.5 [facility] Comment on above: Performed By: #### C DP, BMP, LIPR, MG, CINTHYA, GLYHGB #### [address] [address] Chemical Process Operator: Stas Irving MD MCHC (RBC) [Mass/Vol] 32.9 g/dL Normal 28.4-34.8 [facility] Comment on above: Performed By: #### C DP, BMP, LIPR, MG, CINTHYA, GLYHGB #### [address] [address] Chemical Process Operator: Stas Irving MD MCV (RBC) [Entitic vol] 86.9 fL Normal 82.6-102.9 [facility] Comment on above: Performed By: #### C DP, BMP, LIPR, MG, CINTHYA, GLYHGB #### [place] [address] Chemical Process Operator: Stas Irving MD Monocytes (Bld) [#/Vol] 0.62 10*3/uL Normal 0.10-1.20 [facility] Comment on above: Performed By: #### C DP, BMP, LIPR, MG, CINTHYA, GLYHGB #### [address] [address] Chemical Process Operator: Stas Irving MD Monocytes/100 WBC (Bld) 9 % Normal 3-12 [facility] Comment on above: Performed By: #### C DP, BMP, LIPR, MG, CINTHYA, GLYHGB #### [address] [address] Chemical Process Operator: Stas Irving MD Neutrophil (Seg) 52 % Normal 36-65 [facility] Comment on above: Performed By: #### C DP, BMP, LIPR, MG, CINTHYA, GLYHGB #### [address] [address] Chemical Process Operator: Stas Irving MD NRBC Automated 0.0 per 100 WBC Normal 0.0 [facility] Comment on above: Performed By: #### C DP, BMP, LIPR, MG, CINTHYA, GLYHGB #### [place] [address] Chemical Process Operator: Stas Irving MD Platelet mean volume (Bld) [Entitic vol] 10.1 fL Normal 8.1-13.5 [facility] Comment on above: Performed By: #### C DP, BMP, LIPR, MG, CINTHYA, GLYHGB #### [place] [address] Chemical Process Operator: Stas Irving MD Platelets (Bld) [#/Vol] 221 10*3/uL Normal 138-453 [facility] Comment on above: Performed By: #### C DP, BMP, LIPR, MG, CINTHYA, GLYHGB #### [place] [address] Chemical Process Operator: Stas Irving MD RBC (Bld) [#/Vol] 5.74 10*6/uL Normal 4.21-5.77 [facility] Comment on above: Performed By: #### C DP, BMP, LIPR, MG, CINTHYA, GLYHGB #### [place] [address] Chemical Process Operator: Stas Irving MD WBC (Bld) [#/Vol] 7.3 10*3/uL Normal 3.5-11.3 [facility] Comment on above: Performed By: #### C DP, BMP, LIPR, MG, CINTHYA, GLYHGB #### [place] [address] Chemical Process Operator: Stas Irving MD Auto Diff Performed NOT REPORTED Normal [facility] Comment on above: Performed By: #### C DP, BMP, LIPR, MG, CINTHYA, GLYHGB #### [facility] [address] [place] [address] Chemical Process Operator: Stas Irving MD Platelets (Bld) [#/Vol] NOT REPORTED Normal [facility] Comment on above: Performed By: #### C DP, BMP, LIPR, MG, CINTHYA, GLYHGB #### [facility] [address] [place] [address] Chemical Process Operator: Stas Irving MD RBC morphology finding Nom (Bld) NOT REPORTED Normal [facility] Comment on above: Performed By: #### C DP, BMP, LIPR, MG, CINTHYA, GLYHGB #### [facility] [address] [place] [address] Chemical Process Operator: Stas Irving MD WBC Morphology NOT REPORTED Normal [facility] Comment on above: Performed By: #### C DP, BMP, LIPR, MG, CINTHYA, GLYHGB #### [facility] [address] [place] [address] Chemical Process Operator: Stas Irving MD CT HEAD WO CONTRASTon [...] C Goyal MD 06/05/19 Final result Normal [facility] CT head without contraston 1 Nav, [facility] Incoming Radiant Results From [employer] - 06/06/2019 10:31 PM EDT EXAMINATION: CT [...] effect. 3. Redemonstration of multifocal remote infarcts. [facility] [place], [place] EXAMINATION: CT OF THE HEAD [...] interface is intact. No acute intracranial hemorrhage. [place], [place] 1. No evidence of an acute evolving infarct. 2. No acute intracranial hemorrhage or global mass effect. 3. Redemonstration of multifocal remote infarcts. [place] CTA HEAD W CON AND CTA [...] C Goyal MD 06/05/19 Final result Normal [facility] EKG 12 Leadon 06-06-2019 Atrial Rate 81 BPM [place], [place] P [place] 67 degrees [facility], [place] P-R Interval 174 ms [facility] Q-T Interval 378 ms [facility] QRS Duration 90 ms [place] QTc Calculation (Bazett) 439 ms [place] R [place] -15 degrees [facility] T [place] 24 degrees [facility] Ventricular Rate 81 BPM [place] Normal sinus rhythm Nonspecific T wave abnormality Abnormal ECG No previous ECGs available [place] Nav, [employer] Incoming Ekg Results From [employer] - 06/06/2019 9:23 AM EDT Normal sinus rhythm Nonspecific T wave abnormality Abnormal ECG No previous ECGs available [place] Hemoglobin A1Con 06-06-2019 HbA1c (Bld) [Mass fraction] 306 mg/dL Normal [facility] Comment on above: Result Comment: The ADA and AACC recommend providing the estimated average glucose result to permit better patient understanding of their HBA1c result. Performed By: #### C DP, BMP, LIPR, MG, CINTHYA, GLYHGB #### [facility] [place] [address] Chemical Process Operator: Stas Irving MD HbA1c (Bld) [Mass fraction] 12.3 % High 4.0-6.0 [facility] Comment on above: Performed By: #### C DP, BMP, LIPR, MG, CINTHYA, GLYHGB #### [facility] [place], [place] [id number] Chemical Process Operator: Stas Irving MD Glucose [Mass/Vol] 306 mg/dL [place] Comment on above: The ADA and AACC rec ommend providing the estimated average glucose result to permit better patient understanding of their HBA1c result. HbA1c (Bld) [Mass fraction] 12.3 % High 4 - 6 % [place] Interpretation and review of laboratory results Abnormal [place] LIPID PANELon 06-06-2019 Cholesterol [Mass/Vol] 294 mg/dL High <200 [place] Comment on above: Cholesterol Guidelines: <200 Desirable 200-240 Borderline >240 Undesirable Cholesterol in HDL [Mass/Vol] 38 mg/dL Low >40 [place] Comment on above: HDL Guidelines: <40 Undesirable 40-59 Borderline >59 Desirable Cholesterol in LDL [Mass/Vol] 216 mg/dL High 0 - 130 mg/dL [place] Comment on above: LDL Guidelines: <100 Desirable 100-129 Near to/above Desirable 130-159 Borderline >159 Undesirable Direct (measured) LDL and calculated LDL are not interchangeable tests. Cholesterol in VLDL [Mass/Vol] NOT REPORTED High 1 - 30 mg/dL [place] Cholesterol.total/Cho lesterol in HDL [Mass ratio] 7.7 {ratio} High <5 [place] Triglyceride [Mass/Vol] 200 mg/dL High <150 [place] Comment on above: Triglyceride Guidelines: <150 Desirable 150-199 Borderline 200-499 High >499 Very high Based on AHA Guidelines for fasting triglyceride, May 2012. Lipid Profileon 06-06-2019 Cholesterol [Mass/Vol] 294 mg/dL High <200 [facility] Comment on above: Result Comment: Cholesterol Guidelines: <200 Desirable 200-240 Borderline >240 Undesirable Performed By: #### C DP, BMP, LIPR, MG, CINTHYA, GLYHGB #### [facility] [address] [place] [address] Chemical Process Operator: Stas Irving MD Cholesterol in HDL [Mass/Vol] 38 mg/dL Low >40 [facility] Comment on above: Result Comment: HDL Guidelines: <40 Undesirable 40-59 Borderline >59 Desirable Performed By: #### C DP, BMP, LIPR, MG, CINTHYA, GLYHGB #### [address] [address] Chemical Process Operator: Stas Irving MD Cholesterol in LDL [Mass/Vol] 216 mg/dL High 0-130 [facility] Comment on above: Result Comment: LDL Guidelines: <100 Desirable 100-129 Near to/above Desirable 130-159 Borderline >159 Undesirable Direct (measured) LDL and calculated LDL are not interchangeable tests. Performed By: #### C DP, BMP, LIPR, MG, CINTHYA, GLYHGB #### [facility] [address] [place] [address] Chemical Process Operator: Stas Irving MD Cholesterol.total/Cho lesterol in HDL [Mass ratio] 7.7 {ratio} High <5 [facility] Comment on above: Performed By: #### C DP, BMP, LIPR, MG, CINTHYA, GLYHGB #### [facility] [address] [place] [address] Chemical Process Operator: Stas Irving MD Triglyceride [Mass/Vol] 200 mg/dL High <150 [facility] Comment on above: Result Comment: Triglyceride Guidelines: <150 Desirable 150-199 Borderline 200-499 High >499 Very high Based on AHA Guidelines for fasting triglyceride, May 2012. Performed By: #### C DP, BMP, LIPR, MG, CINTHYA, GLYHGB #### [facility] [address] [place] [address] Chemical Process Operator: Stas Irving MD Cholesterol in VLDL [Mass/Vol] NOT REPORTED Normal 1-30 [facility] Comment on above: Performed By: #### C DP, BMP, LIPR, MG, CINTHYA, GLYHGB #### [facility] [address] [place] [address] Chemical Process Operator: Stas Irving MD MAGNESIUMon 06-06-2019 Magnesium [Mass/Vol] 2.0 mg/dL 1.6 - 2 .6 mg/dL [place] MRSA DNA Probe, Nasalon 05-22 MRSA, DNA, Nasal NEGATIVE: MRSA DNA not detected by nucleic acid amplification. NEGATIVE: MRSA DNA not detected by nucleic acid amplificati [place] Comment on above: Results should be used as an adjunct to nosocomial control efforts to identify patients needing enhanced precautions. The test is not intended to identify patients with staphylococcal infections. Results should not be used to guide or monitor treatment for MRSA infections. Specimen Description .NASAL SWAB [place], [place] MRSA, DNA, Nasalon 9 MRSA, DNA, Nasal NEGATIVE: MRSA DNA not detected by nucleic acid amplification. Normal NMRSAA [facility] Comment on above: Result Comment: Results should be used as an adjunct to nosocomial control efforts to identify patients needing enhanced precautions. The test is not intended to identify patients with staphylococcal infections. Results should not be used to guide or monitor treatment for MRSA infections. Performed By: #### S TOREYKE #### [facility] [address] [place] [address] Chemical Process Operator: Stas Irving MD Specimen Description .NASAL SWAB Normal [facility] Comment on above: Performed By: #### S TROKE #### [facility] [place] [address] Chemical Process Operator: Stas Irving MD Magnesiumon 06-06-2019 Magnesium [Mass/Vol] 2.0 mg/dL Normal 1.6-2.[address] [facility] Comment on above: Performed By: #### C DP, BMP, LIPR, MG, CINTHYA, GLYHGB #### [facility] [address] [place] [address] Chemical Process Operator: Stas Irving MD Otheron 06-06-2019 Interpretation and review of laboratory results Abnormal [place] PHOSPHORUSon 06-06-2019 Phosphate [Mass/Vol] 3.2 mg/dL 2.5 - 4 .5 mg/dL [place] POC Glucose Fingerstickon Glucose [Mass/Vol] 315 mg/dL High 75 - 110 mg/dL [place] Interpretation and review of laboratory results Abnormal [place] Glucose [Mass/Vol] 310 mg/dL High 75 - 110 mg/dL [place] Interpretation and review of laboratory results Abnormal [place] Glucose [Mass/Vol] 257 mg/dL High 75 - 110 mg/dL [place] Interpretation and review of laboratory results Abnormal [place] Glucose [Mass/Vol] 265 mg/dL High 75 - 110 mg/dL [place] Interpretation and review of laboratory results Abnormal [place] Glucose [Mass/Vol] 211 mg/dL High 75 - 110 mg/dL [place] Interpretation and review of laboratory results Abnormal [place] POCT glucoseon 06-06-2019 Glucose [Mass/Vol] 211 mg/dL [place] Interpretation and review of laboratory results Normal [place] Phosphorus, Inorg.on 019 Phosphorus, Inorg. 3.2 mg/dL Normal 2.5-4.5 [facility] Comment on above: Performed By: #### C DP, BMP, LIPR, MG, CINTHYA, GLYHGB #### [facility] [place] [address] Chemical Process Operator: Stas Irving MD Anion Gap (Calc) POCon 06-05 Anion gap [Moles/Vol] 10 mmol/L 7 - 16 mmol/L [place] CALCIUM, IONIC (POC)on 06-05 POC Ionized Calcium 1.18 mmol/L 1.15 - 1 .33 mmol/L [place] CHLORIDE (POC)on 06-05-2019 Chloride [Moles/Vol] 99 mmol/L 98 - 10 7 mmol/L [place] CT Head WO Contraston 2018 EXAMINATION: [...] of the visualized skull or soft tissues. [place], [place] Nav, pn Incoming Radiant Results From [employer] - 06/05/2019 10:17 PM EDT EXAMINATION: CT [...] Discussed with Dr. Son at 10:14 p.m.. [place] No acute intracrania l abnormality. 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 Pansinusitis. RECOMMENDATIONS: The findings were sent to the [facility] at 10:13 pm on 06/05/2019to be communicated to a licensed caregiver. Discussed with Dr. Son at 10:14 p.m.. [place] CTA HEAD NECK W CONTRASTon 1 Nav, [facility] Incoming Radiant Results From [employer] - 06/05/2019 10:57 PM EDT EXAMINATION: CTA [...] discussed with Dr. Son at 10:50 p.m.. 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 Otherwise negative CTA of the head and neck. RECOMMENDATIONS: The findings were sent to the Radiology Results Communication Center at 10:48 pm on 06/05/2019to be communicated to a licensed caregiver. Case discussed with Dr. Son at 10:50 p.m.. [place] EXAMINATION: CTA OF THE HEAD AND [...] bilateral remote basal ganglia infarcts again noted. [place] Creatinine W/GFR Point of Ca reon 06-05-2019 Creatinine [Mass/Vol] 0.77 mg/dL 0.51 - 1.19 mg/dL [place] GFR Non- >60 >60 mL/min [place] GFR/1.73 sq M predicted among non-blacks MDRD (S/P/Bld) [Vol rate/Area] mL/min/{1.73_m2} >60 mL/min [place] GFR/1.73 sq M predicted among non-blacks MDRD (S/P/Bld) [Vol rate/Area] [place] Comment on above: Average GFR for 60-6 9 years old: 85 mL/min/1.73sq m Chronic Kidney Disease: <60 mL/min/1.73sq m Kidney failure: <15 mL/min/1.73sq m eGFR calculated using average adult body mass. Additional eGFR calculator available at: http://www.SensorLogic.Optinuity/multiple_crcl_2012.htm Hemoglobin and hematocrit, b loodon 06-05-2019 Hematocrit (Bld) [Volume fraction] 47 % 41 - 53 % [place] Hemoglobin (Bld) [Mass/Vol] 16.0 g/dL 13.5 - 17.5 g/dL [place] Lactic Acid, POCon 9 POC Lactic Acid 1.62 mmol/L High 0.56 - 1.39 mmol/L [place] Otheron 06-05-2019 Interpretation and review of laboratory results Abnormal [place] POC Glucose Fingerstickon Glucose [Mass/Vol] 315 mg/dL High 75 - 110 mg/dL [place], [place] Interpretation and review of laboratory results Abnormal [place] POCT Glucoseon 06-05-2019 Glucose [Mass/Vol] 344 mg/dL High 74 - 100 mg/dL [place] POTASSIUM (POC)on 06-05-2019 Potassium [Moles/Vol] 3.9 mmol/L 3.5 - 4.5 mmol/L [place] SODIUM (POC)on 06-05-2019 Sodium [Moles/Vol] 136 mmol/L Low 138 - 146 mmol/L [place] STROKE PANELon 06-05-2019 % CKMB 2.4 % 0 - 3.5 % [place] Anion gap [Moles/Vol] 12 mmol/L 9 - 17 mmol/L [place] aPTT Coag (Bld) [Time] 26.4 s [place] Basophils (Bld) [#/Vol] 0.06 10*3/uL [place] Basophils/100 WBC (Bld) 1 % 0 - 2 % [place] Bun/Cre Ratio NOT REPORTED [place] Calcium [Mass/Vol] 9.7 mg/dL 8.6 - 10. 4 mg/dL [place] Chloride [Moles/Vol] 98 mmol/L 98 - 10 7 mmol/L [place] CK.MB [Mass/Vol] NORMAL ISOENZYME PATTERN [place] CK.MB [Mass/Vol] 3.3 ng/mL <10.5 [place] CO2 [Moles/Vol] 25 mmol/L 20 - 31 mmol/L [place] Creatinine [Mass/Vol] 0.83 mg/dL 0.7 - 1.2 mg/dL [place] Differential Type NOT REPORTED [place] Eosinophils (Bld) [#/Vol] 0.46 10*3/uL High [place] Eosinophils/100 WBC (Bld) 6 % High 1 - 4 % [place] Erythrocyte distribution width (RBC) [Ratio] 13.7 % 11.8 - 14.4 % [place] GFR >60 >60 mL/min [place], [place] GFR Non- >60 >60 mL/min [place] GFR/1.73 sq M predicted among non-blacks MDRD (S/P/Bld) [Vol rate/Area] NOT REPORTED [place] GFR/1.73 sq M predicted among non-blacks MDRD (S/P/Bld) [Vol rate/Area] [place] Comment on above: Average GFR for 60-6 9 years old: 85 mL/min/1.73sq m Chronic Kidney Disease: <60 mL/min/1.73sq m Kidney failure: <15 mL/min/1.73sq m eGFR calculated using average adult body mass. Additional eGFR calculator available at: http://www.Embarke/multiple_crcl_2011.htm Glucose [Mass/Vol] 353 mg/dL High 70 - 99 mg/dL [place] Hematocrit (Bld) [Volume fraction] 47.2 % 40.7 - 50.3 % [place] Hemoglobin (Bld) [Mass/Vol] 15.6 g/dL 13 - 17 g/dL [place] Immature granulocytes (Bld) [#/Vol] 0.03 10*3/uL [place] Immature granulocytes (Bld) [#/Vol] 0 % 0 [place] INR Coag (PPP) [Relative time] 1.2 {INR} [place] Comment on above: Therapeutic Range: Moderate Anticoagulant Intensity: INR = 2.0-3.0 High Anticoagulant Intensity: INR = 2.5-3.5 Interpretation and review of laboratory results Abnormal [place] Lymphocytes (Bld) [#/Vol] 2.54 10*3/uL [place] Lymphocytes/100 WBC (Bld) 32 % 24 - 43 % [place] MCH (RBC) [Entitic mass] 28.5 pg 25.2 - 33.5 pg [place] MCHC (RBC) [Mass/Vol] 33.1 g/dL 28.4 - 34.8 g/dL [place] MCV (RBC) [Entitic vol] 86.1 fL 82.6 - 102.9 fL [place] Monocytes (Bld) [#/Vol] 0.69 10*3/uL [place] Monocytes/100 WBC (Bld) 9 % 3 - 12 % [place] Myoglobin [Mass/Vol] 24 ng/mL Low 28 - 72 ng/mL [place] Platelet mean volume (Bld) [Entitic vol] 11.3 fL 8.1 - 13.5 fL [place] Platelets (Bld) [#/Vol] 201 10*3/uL [place] Platelets (Bld) [#/Vol] NOT REPORTED [place] Potassium [Moles/Vol] 4.1 mmol/L 3.7 - 5.3 mmol/L [place] PT Coag (PPP) [Time] 12.1 s High [place], [place] RBC (Bld) [#/Vol] 5.48 10*6/uL 4.21 - 5.7 7 m/uL [place] RBC morphology finding Nom (Bld) NOT REPORTED [place] Segmented neutrophils/100 WBC (Bld) 52 % 36 - 65 % [place] Segs Absolute 4.20 [place] Sodium [Moles/Vol] 135 mmol/L 135 - 144 mmol/L [place] Total CK 138 U/L 39 - 308 U/L [place] Troponin I.cardiac [Mass/Vol] NOT REPORTED [place] Troponin T.cardiac [Mass/Vol] NOT REPORTED <0.03 ng/mL [place] Troponin, High Sensitivity 17 ng/L 0 - 22 ng/L [place] Comment on above: High Sensitivity Troponin values cannot be compared with other Troponin methodologies. Patients with high levels of Biotin oral intake (i.e >5mg/day) may have falsely decreased Troponin levels. Samples collected within 8 hours of biotin intake may require additional information for diagnosis. Urea nitrogen [Mass/Vol] 8 mg/dL 8 - 23 mg/dL [place] WBC (Bld) [#/Vol] 0.0 10*3/uL 0.0 per 10 0 WBC [place] WBC (Bld) [#/Vol] 8.0 10*3/uL [place] WBC Morphology NOT REPORTED [place] Stroke Panelon 06-05-2019 % CKMB 2.4 % Normal 0.0-3.5 [facility] Comment on above: Performed By: #### S TROKE #### [address] [address] Chemical Process Operator: Stas Irving MD Anion gap [Moles/Vol] 12 mmol/L Normal 9-17 [facility] Comment on above: Performed By: #### S TROKE #### [facility] [address] [place] [address] Chemical Process Operator: Stas Irving MD Calcium [Mass/Vol] 9.7 mg/dL Normal 8.6-10.4 [facility] Comment on above: Performed By: #### S TROKE #### [facility] [address] [place] [address] Chemical Process Operator: Stas Irving MD Chloride [Moles/Vol] 98 mmol/L Normal 98-[address] [facility] Comment on above: Performed By: #### S TROKE #### [facility] [address] [place] [address] Chemical Process Operator: Stas Irving MD CK [Catalytic activity/Vol] 138 U/L Normal 39-308 [facility] Comment on above: Performed By: #### S TROKE #### [facility] [address] [place] [address] Chemical Process Operator: Stas Irving MD CK.MB [Mass/Vol] NORMAL ISOENZYME PATTERN Normal [facility] Comment on above: Performed By: #### S TROKE #### [address] [address] Chemical Process Operator: Stas Irving MD CO2 [Moles/Vol] 25 mmol/L Normal 20-31 [facility] Comment on above: Performed By: #### S TROKE #### [address] [address] Chemical Process Operator: Stas Irving MD Creatinine [Mass/Vol] 0.83 mg/dL Normal 0.70-1.20 [facility] Comment on above: Performed By: #### S TROKE #### [address] [address] Chemical Process Operator: Stas Irving MD GFR, Amer >60 Normal >60 [facility] Comment on above: Performed By: #### S TROKE #### [address] [address] Chemical Process Operator: Stas Irving MD GFR,non Amer >60 Normal >[address] [facility] Comment on above: Performed By: #### S TROKE #### [address] [address] Chemical Process Operator: Stas Irving MD Glucose [Mass/Vol] 353 mg/dL High 70-99 [facility] Comment on above: Performed By: #### S TROKE #### [address] [address] [employer] Operator: Stas Irving MD Potassium [Moles/Vol] 4.1 mmol/L Normal 3.7-5.3 [facility] Comment on above: Performed By: #### S TROKE #### [address] [address] [employer] Process Operator: Stas Irving MD Sodium [Moles/Vol] 135 mmol/L Normal 135-144 [facility] Comment on above: Performed By: #### S MAGDY #### [address] [address] [employer] Process Operator: Stas Irving MD Urea nitrogen [Mass/Vol] 8 mg/dL Normal 8-23 [facility] Comment on above: Performed By: #### S MAGDY #### [address] [address] [employer] Process Operator: Stas Irving MD (cont.) [facility] Comment on above: Result Comment: Aver age GFR for 60-69 years old: 85 mL/min/1.73sq m Chronic Kidney Disease: <60 mL/min/1.73sq m Kidney failure: <15 mL/min/1.73sq m eGFR calculated using average adult body mass. Additional eGFR calculator available at: http://www.[employer]/multiple_crcl_2012.htm Performed By: #### Ирина CURRAN #### [address] [address] [employer] Process Operator: Stas Irving MD CK-MB,Quantitative 3.3 ng/mL Normal <10.5 [facility] Comment on above: Performed By: #### Ирина CURRAN #### [address] [address] [employer] Process Operator: Stas Irving MD Myoglobin [Mass/Vol] 24 ng/mL Low 28-[address] [facility] Comment on above: Performed By: #### Ирина CURRAN #### [address] [address] [employer] Process Operator: Stas Irving MD Troponin, High Sens 17 ng/L Normal 0-22 [facility] Comment on above: Result Comment: High Sensitivity Troponin values cannot be compared with other Troponin methodologies. Patients with high levels of Biotin oral intake (i.e >5mg/day) may have falsely decreased Troponin levels. Samples collected within 8 hours of biotin intake may require additional information for diagnosis. Performed By: #### S MAGDY #### [facility] Time Tomography [address] [place] [id number] [employer] Operator: Stas Irving MD aPTT Coag (Bld) [Time] 26.4 s Normal 20.5-30.5 [facility] Comment on above: Performed By: #### S MAGDY #### [address] [address] [employer] Process Operator: Stas Irving MD INR Coag (PPP) [Relative time] 1.2 {INR} Normal [facility] Comment on above: Result Comment: Therapeutic Range: Moderate Anticoagulant Intensity: INR = 2.0-3.0 High Anticoagulant Intensity: INR = 2.5-3.5 Performed By: #### S MAGDY #### [address] [address] [employer] Process Operator: Stas Irving MD PT Coag (PPP) [Time] 12.1 s High 9.0-12.[address] [facility] Comment on above: Performed By: #### S MAGDY #### [address] [address] [employer] Process Operator: Stas Irving MD Abs. Basophil 0.06 k/uL Normal 0.00-0.20 [facility] Comment on above: Performed By: #### S MAGDY #### [facility] [address] [place] [address] [employer] Process Operator: Stas Irving MD Abs.Imm.Granulocyte 0.03 k/uL Normal 0.00-0.30 [facility] Comment on above: Performed By: #### S MAGDY #### [facility] [address] [place] [address] [employer] Operator: Stas Irving MD Abs.Neutrophil (Seg) 4.20 k/uL Normal 1.50-8.[address] [facility] Comment on above: Performed By: #### S MAGDY #### [place] [address] [employer] Process Operator: Stas Irving MD Basophils/100 WBC (Bld) 1 % Normal 0-2 [facility] Comment on above: Performed By: #### S MAGDY #### [place] [address] [employer] Process Operator: Stas Irving MD Eosinophils (Bld) [#/Vol] 0.46 10*3/uL High 0.00-0.44 [facility] Comment on above: Performed By: #### S MAGDY #### [place] [address] [employer] Process Operator: Stas Irving MD Eosinophils/100 WBC (Bld) 6 % High 1-4 [facility] Comment on above: Performed By: #### S MAGDY #### [place] [address] [employer] Process Operator: Stas Irving MD Erythrocyte distribution width (RBC) [Ratio] 13.7 % Normal 11.8-14.4 [facility] Comment on above: Performed By: #### S MAGDY #### [place] [address] [employer] Process Operator: Stas Irving MD Hematocrit (Bld) [Volume fraction] 47.2 % Normal 40.7-50.3 [facility] Comment on above: Performed By: #### S MAGDY #### [place] [address] [employer] Process Operator: Stas Irving MD Hemoglobin (Bld) [Mass/Vol] 15.6 g/dL Normal 13.0-17.0 [facility] Comment on above: Performed By: #### S TOREYKE #### [address] [address] [employer] Process Operator: Stas Irving MD Immature granulocytes (Bld) [#/Vol] 0 % Normal 0 [facility] Comment on above: Performed By: #### S TOREYKE #### [address] [address] [employer] Process Operator: Stas Irving MD Lymphocytes (Bld) [#/Vol] 2.54 10*3/uL Normal 1.10-3.70 [facility] Comment on above: Performed By: #### S MAGDY #### [address] [address] [employer] Process Operator: Stas Irving MD Lymphocytes/100 WBC (Bld) 32 % Normal 24-43 [facility] Comment on above: Performed By: #### S MAGDY #### [address] [address] [employer] Process Operator: Stas Irving MD MCH (RBC) [Entitic mass] 28.5 pg Normal 25.2-33.5 [facility] Comment on above: Performed By: #### S MAGDY #### [address] [address] [employer] Process Operator: Stas Irving MD MCHC (RBC) [Mass/Vol] 33.1 g/dL Normal 28.4-34.8 [facility] Comment on above: Performed By: #### S TOREYKE #### [address] [address] [employer] Process Operator: Stas Irving MD MCV (RBC) [Entitic vol] 86.1 fL Normal 82.6-102.9 [facility] Comment on above: Performed By: #### S MAGDY #### [address] [address] [employer] Process Operator: Stas Irving MD Monocytes (Bld) [#/Vol] 0.69 10*3/uL Normal 0.10-1.20 [facility] Comment on above: Performed By: #### S TOREYKE #### [address] [address] [employer] Process Operator: Stas Irving MD Monocytes/100 WBC (Bld) 9 % Normal 3-12 [facility] Comment on above: Performed By: #### S TOREYKE #### [address] [address] [employer] Process Operator: Stas Irving MD Neutrophil (Seg) 52 % Normal 36-65 [facility] Comment on above: Performed By: #### S MAGDY #### [address] [address] [employer] Process Operator: Stas Irving MD NRBC Automated 0.0 per 100 WBC Normal 0.0 [facility] Comment on above: Performed By: #### S MAGDY #### [address] [address] [employer] Process Operator: Stas Irving MD Platelet mean volume (Bld) [Entitic vol] 11.3 fL Normal 8.1-13.5 [facility] Comment on above: Performed By: #### S TOREYKE #### [address] [address] [employer] Process Operator: Stas Irving MD Platelets (Bld) [#/Vol] 201 10*3/uL Normal 138-453 [facility] Comment on above: Performed By: #### S MAGDY #### [address] [address] Chemical Process Operator: Stas Irving MD RBC (Bld) [#/Vol] 5.48 10*6/uL Normal 4.21-5.77 [facility] Comment on above: Performed By: #### S MAGDY #### [address] [address] [employer] Process Operator: Stas Irving MD WBC (Bld) [#/Vol] 8.0 10*3/uL Normal 3.5-11.3 [facility] Comment on above: Performed By: #### S MAGDY #### [address] [address] Chemical Process Operator: Stas Irving MD Auto Diff Performed NOT REPORTED Normal [facility] Comment on above: Performed By: #### S MAGDY #### [address] [address] Chemical Process Operator: Stas Irving MD BUN/CRE Ratio NOT REPORTED Normal -20 [facility] Comment on above: Performed By: #### S MAGDY #### [address] [address] [employer] Process Operator: Stas Irving MD Platelets (Bld) [#/Vol] NOT REPORTED Normal [facility] Comment on above: Performed By: #### S MAGDY #### [address] [address] [employer] Process Operator: Stas Irving MD RBC morphology finding Nom (Bld) NOT REPORTED Normal [facility] Comment on above: Performed By: #### S MAGDY #### [address] [address] [employer] Process Operator: Stas Irving MD Staging: NOT REPORTED Normal [facility] Comment on above: Performed By: #### S MAGDY #### [address] [address] Chemical Process Operator: Stas Irving MD Troponin I.cardiac [Mass/Vol] NOT REPORTED Normal [facility] Comment on above: Performed By: #### S TROKE #### [facility] [address] [place], [place] [id number] Chemical Process Operator: Stas Irving MD Troponin T.cardiac [Mass/Vol] NOT REPORTED Normal <0.03 [facility] Comment on above: Performed By: #### S TROKE #### [facility] [address] [place], [place] [id number] Chemical Process Operator: Stas Irving MD WBC Morphology NOT REPORTED Normal [facility] Comment on above: Performed By: #### S TROKE #### [facility] [address] [place], [place] [id number] Chemical Process Operator: Stas Irving MD Venous Blood Gas, POCon 05-22 [place] Test NOT REPORTED [place] aPTT Coag (Bld) [Time] NOT REPORTED [place] FIO2 [place] REPORTED [place] HCO3, Venous 27.3 mmol/L 22 - 29 mmol/L [place] Mode NOT REPORTED [place] Negative Base Excess, Kody NOT REPORTED [place] O2 Device/Flow/% NOT REPORTED [place] Oxygen saturation in Blood 67 % 60 - 85 % [place] pCO2, Kody 41.3 [place] pH, Kody 7.428 [place] pO2, Kody 33.8 [place] POC pCO2 Temp NOT REPORTED mm Hg [place] POC pH Temp NOT REPORTED [place] POC pO2 Temp NOT REPORTED mm Hg [place] Positive Base Excess, Kody 3 [place] Sample Site NOT REPORTED [place] Total CO2, Venous 29 mmol/L 23 - 30 mmol/L [place] XR CHEST PORTABLEon 06-05-20 19 XR [...] C Goyal MD 06/05/19 Final result Normal [facility] EXAMINATION: ONE XRA Y VIEW OF THE CHEST 06/05/2019 9:01 pm COMPARISON: None. HISTORY: ORDERING SYSTEM PROVIDED HISTORY: CVA TECHNOLOGIST PROVIDED HISTORY: CVA Reason for Exam: stroke upright port FINDINGS: The lungs are without acute focal process. There is no effusion or pneumothorax. The cardiomediastinal silhouette is without acute process. The osseous structures are without acute process. [place], [place] Nav, pn Incoming Radiant Results From [facility] - 06/05/2019 9:43 PM EDT EXAMINATION: ONE [...] without acute process. IMPRESSION: No acute process. [place] No acute process. [place] Vital Signs Date Time Vital Sign Value Performing Clinician Facility 02-02-2023 10:20-0400 Blood Pressure Location Milvia [facility] 02-02-2023 10:20-0400 Diastolic blood pressure 82 mm[Hg] [facility] 02-02-2023 10:20-0400 Heart rate 72 /min Milvia L[facility] 02-02-2023 10:20-0400 Systolic blood pressure 132 mm[Hg] Milvia Lue [facility] 11-03-2022 08:12-0400 Blood Pressure Location Milvia Lue [facility] 11-03-2022 08:12-0400 Diastolic blood pressure 81 mm[Hg] Milvia Lue [facility] 11-03-2022 08:12-0400 Heart rate 77 /min Milvia Lue [facility] 11-03-2022 08:12-0400 Systolic blood pressure 131 mm[Hg] Milvia Lue [facility] 08-04-2022 08:56-0500 Blood Pressure Location Milvia Lue [facility] 08-04-2022 08:56-0500 Diastolic blood pressure 90 mm[Hg] Milvia Lue [facility] 08-04-2022 08:56-0500 Heart rate 78 /min Milvia Lue [facility] 08-04-2022 08:56-0500 Respiratory rate 16 /min Milvia Lue [facility] 08-04-2022 08:56-0500 Systolic blood pressure 140 mm[Hg] Milvia Lue [facility] 07-06-2022 17:09-0500 Body temperature 97.88 [degF] Milvia Lue [facility] 07-06-2022 17:09-0500 Diastolic blood pressure 88 mm[Hg] Milvia Lue [facility] 07-06-2022 17:09-0500 Heart rate 80 /min Milvia Lue [facility] 07-06-2022 17:09-0500 Mean blood pressure 114 mm[Hg] Milvia Lue [facility] 07-06-2022 17:09-0500 Respiratory rate 16 /min Milvia Lue [facility] 07-06-2022 17:09-0500 SaO2% (BldA) [Mass fraction] 98 % Milvia Lue [facility] 07-06-2022 17:09-0500 Systolic blood pressure 165 mm[Hg] Milvia Lue [facility] 07-06-2022 16:24-0500 Blood Pressure Location Milvia Lue [facility] 07-06-2022 16:24-0500 Body temperature 97.88 [degF] Milvia Lue [facility] 07-06-2022 16:24-0500 Diastolic blood pressure 98 mm[Hg] Milvia Lue [facility] 07-06-2022 16:24-0500 Heart rate 76 /min Milvia Lue [facility] 07-06-2022 16:24-0500 Mean blood pressure 122 mm[Hg] Milvia Lue [facility] 07-06-2022 16:24-0500 SaO2% (BldA) [Mass fraction] 96 % Milvia Lue [facility] 07-06-2022 16:24-0500 Systolic blood pressure 169 mm[Hg] Milvia Lue [facility] 07-06-2022 16:16-0500 Blood Pressure Location Milvia Lue [facility] 07-06-2022 16:16-0500 Body temperature 97.52 [degF] Milvia Lue [facility] 07-06-2022 16:16-0500 Diastolic blood pressure 105 mm[Hg] Milvia Lue [facility] 07-06-2022 16:16-0500 Heart rate 82 /min Milvia Lue [facility] 07-06-2022 16:16-0500 Respiratory rate 16 /min Milvia Lue [facility] 07-06-2022 16:16-0500 SaO2% (BldA) [Mass fraction] 98 % Milvia Lue [facility] 07-06-2022 16:16-0500 Systolic blood pressure 159 mm[Hg] Milvia Lue [facility] 07-06-2022 16:03-0500 Blood Pressure Location Milvia Lue [facility] 07-06-2022 16:03-0500 Respiratory rate 12 /min Milvia Lue [facility] 07-06-2022 15:58-0500 Respiratory rate 17 /min Milvia Lue [facility] 07-06-2022 15:48-0500 Body temperature 97.7 [degF] Milvia Lue [facility] 07-06-2022 10:40-0500 Mean blood pressure 106 mm[Hg] Milvia Lue [facility] 07-06-2022 10:40-0500 Heart rate 80 /min Milvia Lue [facility] 07-06-2022 10:39-0500 Body temperature 98.78 [degF] Milvia Lue [facility] 07-06-2022 10:39-0500 Mean blood pressure 113 mm[Hg] Milvia Lue [facility] 07-06-2022 10:39-0500 Respiratory rate 20 /min Milvia Lue [facility] 06-30-2022 17:30-0500 Blood Pressure Location Milvia Lue [facility] 06-30-2022 17:30-0500 BP/Pulse Patient Position Milvia Lue [facility] 06-30-2022 17:30-0500 Diastolic blood pressure 84 mm[Hg] Milvia Lue [facility] 06-30-2022 17:30-0500 Systolic blood pressure 175 mm[Hg] Milvia Lue [facility] 06-30-2022 17:22-0500 Blood Pressure Location Milvia Lue [facility] 06-30-2022 17:22-0500 Diastolic blood pressure 96 mm[Hg] Milvia Lue [facility] 06-30-2022 17:22-0500 Heart rate 67 /min Milvia Lue [facility] 06-30-2022 17:22-0500 Mean blood pressure 125 mm[Hg] Milvia Lue [facility] 06-30-2022 17:22-0500 Systolic blood pressure 185 mm[Hg] Milvia Lue [facility] 06-30-2022 16:53-0500 Blood Pressure Location Milvia Lue [facility] 06-30-2022 16:53-0500 Body temperature 98.96 [degF] Milvia Lue [facility] 06-30-2022 16:53-0500 BP/Pulse Patient Position Milvia Lue [facility] 06-30-2022 16:53-0500 Diastolic blood pressure 96 mm[Hg] Milvia Lue [facility] 06-30-2022 16:53-0500 Heart rate 76 /min Milvia Lue [facility] 06-30-2022 16:53-0500 Mean blood pressure 124 mm[Hg] Milvia Lue [facility] 06-30-2022 16:53-0500 Respiratory rate 18 /min Milvia Lue [facility] 06-30-2022 16:53-0500 Systolic blood pressure 180 mm[Hg] Milvia Lue [facility] 06-30-2022 16:52-0500 BP/Pulse Patient Position Milvia Lue [facility] 06-30-2022 16:52-0500 Heart rate 79 /min Milvia Lue [facility] 06-30-2022 16:52-0500 Mean blood pressure 124 mm[Hg] Milvia Lue [facility] 06-30-2022 16:52-0500 SaO2% (BldA) [Mass fraction] 98 % Milvia Lue [facility] 06-25-2022 15:25-0400 Blood Pressure Location [facility] [place] 06-25-2022 15:25-0400 Diastolic blood pressure 86 mm[Hg] [facility] [place] 06-25-2022 15:25-0400 Heart rate 72 /min [facility] [place] 06-25-2022 15:25-0400 Respiratory rate 16 /min [facility] [place] 06-25-2022 15:25-0400 Systolic blood pressure 142 mm[Hg] Curtis NILL [facility] [place] 06-02-2022 09:21-0400 Blood Pressure Location [facility]via Lue [facility] 06-02-2022 09:21-0400 Diastolic blood pressure 86 mm[Hg] [facility]via Lue [facility] 06-02-2022 09:21-0400 Heart rate 72 /min [facility] Lue [facility] 06-02-2022 09:21-0400 Systolic blood pressure 140 mm[Hg] [facility] L[facility] 05-26-2022 07:25-0400 Body height 182.88 cm MD Adilson Salazar Work Phone: [facility] 05-26-2022 07:25-0400 Body weight 98.88 kg MD Adilson Salazar Work Phone: [facility] 04-21-2022 11:39-0400 Respiratory rate 16 /min [facility] L[facility] 06-09-2019 11:39-0400 Body Temperature 98.29 [degF] [facility] [place] 06-09-2019 11:39-0400 BP Diastolic 79 mm[Hg] [facility] [place] 06-09-2019 11:39-0400 BP Systolic 134 mm[Hg] Anselmo Garza [place], [place] 06-09-2019 11:39-0400 Pulse (Heart Rate) 84 /min Anselmo Garza [facility], [place] 06-09-2019 11:39-0400 Pulse Oximetry 95 % Anselmo Garza [facility] , [place] 06-09-2019 11:39-0400 Respiratory Rate 20 /min Anselmo [place], [place] 06-05-2019 20:48-0400 BMI (Body Mass Index) 29.84 kg/m2 Anselmo Garza [facility], [place] 06-05-2019 20:48-0400 Body weight 99.79 kg Anselmo [place], [place] 06-05-2019 20:48-0400 Height 182.9 cm Anselmo [place] Encounters Encounter Date Encounter Type Care Provider Facility Start: 05-02-2024 End: 05-02-2024 ambulatory ADILSON SALAZAR Not Available Start: 04-10-2024 ambulatory VIVIAN Marx [facility] Start: 03-28-2024 End: 03-28-2024 ambulatory ADILSON SALAZAR Not Available Start: 03-13-2024 Evaluation and management of inpatient [facility] Start: 03-13-2024 Evaluation and management of inpatient [facility] Start: 03-13-2024 End: 03-14-2024 Evaluation and management of inpatient [facility] Start: 03-13-2024 End: 03-13-2024 Emergency department patient visit [facility] Start: 02-14-2024 End: 02-14-2024 ambulatory [facility] Start: 02-06-2024 ambulatory [facility] Start: 12-29-2023 End: 12-29-2023 ambulatory ADILSON SALAZAR Not Available Start: 10-31-2023 End: 10-31-2023 ambulatory SILVANO MARTINEZ [facility] Start: 09-29-2023 Clinisync Result Encounter Adilson Salazar MD Work Phone: [facility] Unsolicited Start: 09-29-2023 Clinisync Result Encounter Adilson Salazar MD Work Phone: [facility] Unsolicited Start: 09-29-2023 Orders Only Adilson Bell Work Phone: [facility] Comment on above: Type 2 diabetes thomas itus with hyperglycemia, with long-term current use of insulin ([facility]) Start: 09-26-2023 End: 09-26-2023 ambulatory ADILSON SALAZAR Not Available Start: 09-20-2023 End: 09-20-2023 ambulatory [facility] Start: 08-09-[address] [facility] Start: 08-05-2023 End: 08-05-2023 ambulatory ADILSON SALAZAR Not Available Start: 08-02-2023 End: 08-03-2023 ambulatory [facility] Start: 08-01-2023 End: 08-01-2023 ambulatory [facility] Start: 07-29-2023 End: 07-29-2023 ambulatory [facility] Start: 07-28-2023 End: 07-28-2023 [facility] Start: 07-27-2023 End: 07-27-2023 ambulatory [facility] Start: 07-26-2023 End: 07-26-2023 ambulatory [facility] Start: 07-25-2023 End: 07-25-2023 ambulatory [facility] Start: 07-22-2023 End: 07-22-2023 [facility] Start: 07-21-2023 End: 07-21-[facility]: 07-21-2023 End: 07-21-2023 ambulatory [facility] Start: 07-20-2023 End: 07-20-2023 ambulatory [facility] Start: 07-18-2023 End: 07-18-2023 ambulatory [facility] Start: 07-13-2023 End: 07-13-2023 ambulatory [facility] Start: 07-12-2023 End: 07-12-2023 ambulatory [facility] Start: 07-11-2023 End: 07-11-2023 ambulatory [facility] Start: 07-10-2023 End: 07-10-2023 ambulatory [facility] Start: 07-08-2023 End: 07-08-2023 ambulatory [facility] Start: 07-07-2023 End: 07-07-2023 [facility] Start: 07-06-2023 End: 07-06-2023 ambulatory [facility] Start: 07-05-2023 End: 07-05-2023 ambulatory [facility] Start: 07-04-2023 End: 07-04-2023 ambulatory [facility] Start: 06-30-2023 End: 06-30-2023 [facility] Start: 06-29-2023 End: 06-29-2023 ambulatory [facility] Start: 06-28-2023 End: 06-28-2023 ambulatory [facility] Start: 06-27-2023 End: 06-27-2023 ambulatory [facility] Start: 06-24-2023 End: 06-24-2023 ambulatory [facility] Start: 06-23-2023 End: 06-23-2023 ambulatory [facility] Start: 06-22-2023 End: 06-22-2023 ambulatory [facility] Start: 06-21-2023 End: 06-21-2023 ambulatory [facility] Start: 06-17-2023 End: 06-17-2023 ambulatory [facility] Start: 06-07-2023 End: 06-07-2023 ambulatory [facility] Start: 06-02-2023 End: 06-02-2023 ambulatory [facility] Start: 06-01-2023 End: 06-01-[facility]: 05-30-[facility]23 End: 05-30-2023 ambulatory [facility] Start: 05-30-2023 End: 05-30-[address] [facility] Start: 05-25-2023 End: 05-25-2023 ambulatory [facility] Start: 02-02-2023 End: 02-03-2023 ambulatory Milvia Palomo Facility:[facility] [place] Start: 02-02-2023 End: 02-02-2023 Patient encounter procedure Milvia Palomo [facility] Start: 11-17-2022 End: 11-17-[address] ADILSON SALAZAR Facility:[facility] Start: 11-03-2022 End: 11-04-2022 ambulatory Milvia Palomo Facility:[facility] Start: 11-03-2022 End: 11-03-2022 Patient encounter procedure Milvia Palomo [facility] Start: 10-25-2022 End: 10-26-2022 ambulatory MILVIA PALOMO Facility:[facility] Start: 10-12-2022 ambulatory Daniel Jacobsen ty:[facility] Start: 10-06-2022 End: 10-07-2022 ambulatory Milvia Palomo [facility] Start: 10-06-2022 End: 10-06-2022 Patient encounter procedure Milvia Palomo [facility] Start: 09-22-2022 End: 09-23-2022 ambulatory Adilson Salazar Facility:[facility] Start: 09-20-2022 End: 09-20-2022 ambulatory MD Adilson Salazar Work Phone: [facility] Work Phone: Start: 09-20-2022 End: 09-20-2022 Patient encounter procedure MD Adilson Salazar Work Phone: [facility] Work Phone: Start: 08-06-2022 End: 08-07-[address] CURTIS Osullivan Facility: Start: 08-04-2022 End: 08-05-2022 ambulatory Milvia Palomo Facility[facility] Start: 08-04-2022 End: 08-04-2022 Patient encounter procedure Milvia Palomo [facility] Start: 08-03-2022 ambulatory Curtis GRACIA Facility :[facility] Start: 07-21-2022 Encounter for preprocedural laboratory examination DR CURTIS Osullivan [facility] Start: 07-21-2022 End: 07-22-[address] CURTIS Osullivan Facility: Start: 07-17-2022 End: 07-18-[address] CURTIS Osullivan Facility: Start: 07-17-2022 End: 07-18-2022 Encounter for preprocedural laboratory examination DR CURTIS Osullivan Facility: Start: 07-06-2022 End: 07-06-2022 ambulatory Milvia Palomo Facility:[facility] Start: 07-06-2022 End: 07-06-2022 Admission to same day surgery center Milvia Palomo [facility] Start: 06-30-2022 End: 07-01-2022 ambulatory Milvia Palomo Facility:[facility] Start: 06-30-2022 End: 06-30-2022 Patient encounter procedure Milvia MAbran Danieljosiah [facility] Start: 06-29-2022 End: 09-28-2022 ambulatory Milvia Palomo Facility[facility] Start: 06-25-2022 End: 06-26-2022 ambulatory Curtis GRACIA Facility:[facility] Start: 06-25-2022 End: 06-25-2022 Patient encounter procedure Curtis GRACIA General Surgery [facility] Start: 06-15-2022 End: 06-16-[address] ADILSON SALAZAR Facility:[facility] Start: 06-07-2022 End: 06-07-[address] ADILSON SALAZAR Facility: Start: 06-04-2022 ambulatory Daniel BAEZA Facility :[facility] Start: 06-03-2022 End: 09-27-2022 Recurring Milvia Palomo [facility] Start: 06-02-2022 End: 06-03-2022 ambulatory Milvia Palomo Facility[facility] Start: 06-02-2022 End: 06-30-2022 Pre-admission assessment Milvia Palomo [facility] Start: 06-02-2022 End: 06-02-2022 Patient encounter procedure Milvia Palomo [facility] Start: 05-26-2022 End: 05-26-2022 ambulatory MD Adilson Salazar Work Phone: [facility] Work Phone: Start: 05-26-2022 End: 05-26-2022 Patient encounter procedure MD Adilson Salazar Work Phone: [facility] [place] Start: 04-21-2022 End: 04-22-2022 ambulatory Milvia Palomo Facility:[facility] Start: 04-21-2022 End: 04-21-2022 Patient encounter procedure Milvia Palomo [facility] Start: 01-26-2022 End: 01-27-[address] ADILSON SALAZAR Facility: Start: 06-05-2019 End: 06-09-2019 Evaluation and management of inpatient OSCAR HARP [facility] Start: 06-05-2019 End: 06-09-2019 Evaluation and management of inpatient Anselmo Garza [facility] Comment on above: Cerebrovascular acci dent [...] Performed By: #### P TT, PT #### [facility] [address] [place] [address] Dr. Marcell Luque Start: 09-08-2020 Transrectal biopsy [...] Omer S Ahmed Work Phone: Start: 06-09-2019 FACTOR 5 LEIDEN [...] xtr veins c omplete bilateral study Dylon Powers Eugene Work Phone: Start: 06-08-2019 Gluc bld gluc [...] OSCAR HARP Start: 06-08-2019 DAILY WEIGHTS OSCAR Chiang Start: 06-08-2019 INTAKE AND OUTPUT OSCAR HARP Start: 06-08-2019 Gluc bld gluc mntr d ev cleared fda spec home use OSCAR HARP Start: 06-08-2019 Assay of magnesium Ma'E n Al-Dabbas Work Phone: Start: 06-08-2019 Assay of phosphorus inorganic Ma'En Al-Dabbas Work Phone: Start: 06-08-2019 Basic metabolic pane l calcium total Eugene Carvalho Work Phone: Start: 06-08-2019 Blood count complete auto&auto difrntl wbc Eugnee Carvalho Work Phone: Start: 06-07-2019 Glucose blood [...] OSCAR HARP Start: 06-07-2019 NEURO/VASCULAR CHECKS P AMRIKL LOYD Start: 06-07-2019 NOTIFY PHYSICIAN (SPECIFY) OSCAR HARP Start: 06-07-2019 TELEMETRY MONITORING ROSIO HARP Start: 06-07-2019 UP WITH ASSISTANCE OSCAR HARP Start: 06-07-2019 VITAL SIGNS OSCAR HARP Start: 06-07-2019 WOUND CARE OSCAR HARP Start: 06-07-2019 APPLICATIONS PROGRAMMER ANALYST REPORT OSCAR RITTER SUSHILA Start: 06-07-2019 Glucose blood reagent strip Oscar Harp Work Phone: Start: 06-07-2019 APPLICATIONS PROGRAMMER ANALYST REPORT Hpf Sca nning Start: 06-07-2019 VERIFY [...] LESS OSCAR HARP Start: 06-06-2019 NURSING COMMUNICATION Ciera HARP Start: 06-06-2019 TURN PATIENT OSCAR HARP [...] Work Phone: Start: 06-06-2019 Lipid panel Vipin Sanch ez Morales Work Phone: Start: 06-06-2019 Gluc bld [...] AL VTE PROPHYLAXIS OSCAR HARP Start: 06-06-2019 STRAIGHT LINE PRESS SETTER EVAL AND TREAT OSCAR HARP Start: 06-06-2019 [...] aureus methi cillin resist amp probe tq Pablo Petersen Work Phone: Start: 06-06-2019 Gluc bld [...] OSCAR HARP Start: 06-05-2019 EKG REPORT OSCAR HAPR Start: 06-05-2019 ADVANCE DIET TOLE RATED (NURSING [...] OSCAR QUINONEZ Start: 06-05-2019 TELEMETRY MONITORING ROSIO ALLISON HARP Start: 06-05-2019 VITAL SIGNS OSCAR HARP Start: 06-05-2019 VITAL SIGNS - NOTIFY MD OSCAR HRAP Start: 06-05-2019 Lipid panel OSCAR HARP Start: 06-05-2019 ANION GAP (CALC) POC ROSIO HARP Start: 06-05-2019 Blood count hemoglobin OSCAR HARP Start: 06-05-2019 Calcium ionized OSCAR RIYA SUSHILA Start: 06-05-2019 Chloride other source P [...] Phone: Start: 06-05-2019 Sodium [Moles/Vol] Will adriana Garza Work Phone: Start: 06-05-2019 VENOUS BLOOD GAS, PO INT OF CARE Anselmo Garza Work Phone: Start: 06-05-2019 Glucose blood reagent strip Anselmo Garza Work Phone: Start: 08-22-2011 Colonoscopy Curtis NI LL Arthroplasty of knee Milvia L ue Arthroplasty of knee Curtis NILL Arthroscopy of shoulder Jamie ael NILL Excision of lumbar intervertebral disc Curtis NILL Comment on above: L4-5 Extraction of cataract Milvia Lue Insertion of cathete r into spinal canal for infusion of therapeutic substance Curtis GRACIA Procedure on back Milvia Palomo Plan of Treatment Date Care Activity Detail Author Start: 07-21-2032 Screening for malignant neoplasm of colon [facility] Start: 06-17-2024 Urine screening for protein Diabetes: Urine Protein Screening [facility] Start: 12-29-2023 End: 12-29-2023 Patient encounter procedure 12/29/2023 11:15 AM EDT Office Visit [facility] [address] [place] [id number] Adilson Salazar MD [address] [place] [address] [facility] Start: 09-17-2023 Hemoglobin A1c measurement Diabetes: Hemoglobin A1C [facility] Start: 04-22-2023 Influenza vaccination Influenza Vaccine (#1) [facility] Start: 05-26-2022 MR Prostate WO and W contrast IV [facility] Start: 05-26-2022 MR prostate wo/w con MR prostate wo/w con [facility] Start: 06-08-2020 Creatinine monitoring Creatinine monitoring [place], [place] Start: 06-08-2020 Potassium monitoring Potassium monitoring [place], [place] Start: 06-06-2020 Lipid screen Lipid screen [place], [place] Start: 09-06-2019 A1C test (Diabetic or Prediabetic) A1C test (Diabetic or Prediabetic) [place] Start: 06-05-2019 Annual Wellness Visit (AWV) Annual Wellness Visit (AWV) [place] Start: 04-22-2019 Influenza vaccination Flu vaccine (#1) [place] Start: 03-20-2014 Pneumococcal Vaccine: 65+ Years (2 - PCV) Pneumococcal Vaccine: 65+ Years (2 - PCV) [facility] Start: 11-08-2005 Colon cancer screen colonoscopy Colon cancer screen colonoscopy [place], [place] Start: 11-08-2005 Shingles Vaccine (1 of 2) Shingles Vaccine (1 of 2) [place], [place] Start: 11-08-1974 DTaP/Tdap/Td vaccine (1 - Tdap) DTaP/Tdap/Td vaccine (1 - Tdap) [place], [place] Start: 11-08-1973 Diabetic microalbuminuria test Diabetic microalbuminuria test [place] Start: 11-08-1970 HIV screen HIV screen [place], [place] Start: 11-08-1965 [object Object] Diabetic foot exam [place] Start: 11-08-1965 Diabetic retinal exam Diabetic retinal exam [place], [place] Start: 11-08-1965 Glaucoma screening Diabetes: Retinopathy Screening [facility] Start: 1955 Hepatitis C screen Hepatitis C screen [place], [place] Start: 1955 Screening for malignant neoplasm of colon [facility] End: 06-09-2019 ANTI-PHOSPHOLIPID AB ANTI-PHOSPHOLIPID AB Lab Routine One Time for 1 Occurrences starting 06/09/2019 until 06/09/2019 [place] Comment on above: One Time for 1 Occurrences starting 05/22 until 06/09/2019 ANTI-PHOSPHOLIPID AB ANTI-PHOSPH OLIPID AB Lab Routine 06/09/2019 9:41 AM EDT [place] Basic metabolic 2000 panel Basic Metabolic Panel Lab Routine Daily until discontinued starting 06/07/2019, 3 completed [place] Comment on above: Daily until discontinued starting 2018, 3 completed CBC Auto Differential CBC Auto D ifferential Lab Routine Daily until discontinued starting 06/07/2019, 3 completed [place] Comment on above: Daily until discontinued starting 2018, 3 completed End: 06-07-2019 Diagnostic Cardiac Reformatory Attendant Procedure Diagnostic Cardiac Reformatory Attendant Procedure Cardiac Cath Routine One Time for 1 Occurrences starting 06/07/2019 until 06/07/2019 [place] Comment on above: One Time for 1 Occurrences starting 05/22 until 06/07/2019 End: 06-09-2019 Dilute Deepak Viper Dilute Deepak Viper Lab Routine One Time for 1 Occurrences starting 06/09/2019 until 06/09/2019 [place] Comment on above: One Time for 1 Occurrences starting 05/22 until 06/09/2019 Dilute Deepak Viper Dilute Jaime ell Viper Lab Routine 06/09/2019 9:41 AM [facility] End: 06-09-2019 FACTOR 5 LEIDEN FACTOR 5 LEIDEN Lab Routine One Time for 1 Occurrences starting 06/09/2019 until 06/09/2019 [facility] [place] Comment on above: One Time for 1 Occurrences starting 05/22 until 06/09/2019 End: 06-09-2019 FACTOR 8 ASSAY FACTOR 8 ASSAY Lab Routine One Time for 1 Occurrences starting 06/09/2019 until 06/09/2019 [facility] [place] Comment on above: One Time for 1 Occurrences starting 05/22 until 06/09/2019 FACTOR 8 ASSAY FACTOR 8 ASSAY L ab Routine 06/09/2019 9:41 AM T [facility] Home BIPAP or CPAP Home BIPAP or CPAP Respiratory Care Routine Daily until discontinued starting 06/07/2019 [facility] [place] Comment on above: Daily until discontinued starting 2018 Incentive spirometry Incentive s pirometry Respiratory Care Routine Daily until discontinued starting 06/06/2019 [facility] [place] Comment on above: Daily until discontinued starting 2018 Initiate Oxygen Ther apy Protocol Initiate Oxygen Therapy Protocol Respiratory Care Routine Daily until discontinued starting 06/07/2019 [facility] [place] Comment on above: Daily until discontinued starting 2018 POCT glucose [facility] [place] Comment on above: 4X Daily (AC & HS) until discontinued st arting 06/06/2019 As Needed until disc ontinued starting 06/06/2019 End: 06-09-2019 Protein C Functional Protein C Functional Lab Routine One Time for 1 Occurrences starting 06/09/2019 until 06/09/2019 [facility] [place] Comment on above: One Time for 1 Occurrences starting 05/22 until 06/09/2019 Protein C Functional Protein C F unctional Lab Routine 06/09/2019 9:41 AM T [facility] End: 06-09-2019 Protein S Functional Protein S Functional Lab Routine One Time for 1 Occurrences starting 06/09/2019 until 06/09/2019 [facility] [place] Comment on above: One Time for 1 Occurrences starting 05/22 until 06/09/2019 Protein S Functional Protein S F unctional Lab Routine 06/09/2019 9:41 AM EDT [facility] JOYCELYN PATEL End: 06-09-2019 Prothrombin Gene Mutation Prothrombin Gene Mutation Lab Routine One Time for 1 Occurrences starting 06/09/2019 until 06/09/2019 [facility] Comment on above: One Time for 1 Occurrences starting 05/22 until 06/09/2019 End: 06-07-2019 Pulse oximetry, continuous Pulse oximetry, continuous Respiratory Care Routine Every 4hr for 24 Hours starting 06/06/2019 until 06/07/2019 [facility] Comment on above: Every 4hr for 24 Hours starting 06/06/20 until 06/07/2019 Immunizations Immunization Date Immunization Notes Care Provider Tyra dailey 03-20-2013 pneumococcal polysaccharide vaccine, 23 valent Milvia Palomo [facility] Payers Date Payer Category Payer Private Health Insurance RHETT FIELD [id number] 2023-Present [address] [place] [address] [id number] 2023 Unknown [id number] 2022 Self-pay [id number] 2018 Medicare MEDICARE MEDICAR E PART A AND B xxxxxxxxxxx 2018-Present [phone] [place] [address] xxxxxxxxxxx [id number] 1997 Medicare MEDICARE MEDICAR E PART B [id number] 1997-[place] [place] [address] Medicare [id number] 1965 Unknown [id number] 2.16.840.1.530647.3.579.2 .1259 1959 Medicare [id number] 1955 Unknown [id number] 2.16.840.1.270367.3.579.2 .175 1955 Unknown [id number] 2.16.840.1.059365.3.579.2 .593 1955 Unknown [id number] 2.16.840.1.907990.3.579.2 .593 1955 Unknown [id number] 2.16.840.1.254022.3.579.2 .593 1955 Unknown [id number] 2.16.840.1.269627.3.579.2 .593 1955 Unknown [id number] 2.16.840.1.768083.3.579.2 .593 1955 Unknown [id number] 2.16.840.1.004812.3.579.2 .593 1955 Unknown [id number] 2.16.840.1.685111.3.579.2 .593 1955 Unknown [id number] 2.16.840.1.792573.3.579.2 .593 1955 Unknown [id number] 2.16.840.1.400660.3.579.2 .727 1955 Unknown [id number] 2.16.840.1.946027.3.579.2 .727 1955 Unknown [id number] 2.16.840.1.541855.3.579.2 .727 1955 Unknown [id number] 2.16.840.1.171376.3.579.2 .727 1955 Unknown [id number] 2.16.840.1.307787.3.579.2 .727 1955 Unknown [id number] 2.16.840.1.241766.3.579.2 .727 1955 Unknown [id number] 2.16.840.1.092865.3.579.2 .727 1955 Unknown [id number] 2.16.840.1.905927.3.579.2 .727 1955 Unknown [id number] 2.16.840.1.698900.3.579.2 .727 1955 Unknown [id number] 2.16.840.1.153944.3.579.2 .727 1955 Unknown [id number] 2.16.840.1.892892.3.579.2 .727 1955 Unknown [id number] 2.16.840.1.300294.3.579.2 .727 1955 Unknown [id number] 2.16.840.1.096055.3.579.2 .727 1955 Unknown [id number] 2.16.840.1.712614.3.579.2 .1259 1955 Unknown [id number] 2.16.840.1.568535.3.579.2 .1259 1955 Unknown [id number] 2.16.840.1.308861.3.579.2 .1259 1955 Unknown [id number] 2.16.840.1.084983.3.579.2 .1259 1955 Unknown [id number] 2.16.840.1.812928.3.579.2 .1259 Unknown [id number] Medicare Medicare Outpatient [id number] 7A [id number] Private Health Insurance [facility] [id number] Unknown [id number] 2.16.840.1.734014.3.579.2 .531 Social History Date Type Detail Facility Start: 06-06-2019 End: 08-05-2023 Tobacco smoking status NHIS Never smoker [facility] Start: 06-06-2019 End: 09-26-2023 Alcohol intake Never [place] Start: 06-05-2019 History SDOH Alcohol Frequency 1 [place], [place] Start: 1955 Sex Assigned At Not on file M [place], [place] Tobacco smoking status Never [facility] Start: 06-25-2021 End: 08-04-2022 Tobacco smoking status PAIS Ex-smoker (finding) [facility] Start: 1955 Sex Assigned At Male F [facility] Start: 08-05-2023 Tobacco use and exposure Smokeless tobacco non-user [facility] Start: 09-26-2023 Alcohol intake Ex-drinker (finding) [facility] Start: 09-26-2023 History of Social function [facility] Medical Equipment Procedure Code Equipment Code Equipment Origin al Text Equipment Identifier Dates 1 each by In Vit ro route in the morning and 1 each in the evening and 1 each before bedtime. [id number] Start: 09-26-2023 1 each in the morning and 1 each in the evening and 1 each before bedtime. [id number] Start: 09-26-2023 Functional Status Date Assessment Result Facility 02-02-2023 Functional Status N/A [facility] 11-03-2022 Functional Status N/A [facility] 10-06-2022 Functional Status N/A [facility] 08-04-2022 Functional Status N/A [facility] 06-30-2022 Functional Status No [facility] 06-25-2022 [facility] Status N[facility]A [facility] Functional Status N/A [facility] 04-21-2022 Functional Status N/A [facility] Clinical Notes 04-21-2022 to 04-17-2024 Note Date & Type Note Facility 04-17-2024 Note New script for Repat wilhelm received to treat E78.2, I25.10 mixed hyperlipidemia and Atherosclerotic heart disease. PA required? Yes Routed to [facility] for initial workup. Reddy Barnard, [facility] 04/17/24 at 11:40 AM [facility] 04-17-2024 Note I called the patient and he received the medication and does not have any questions at this time. Antoinette Gan, [facility] 05/01/24 2:05 PM [facility] 04-17-2024 Note PA still in process, follow up on 04/23 for PA status. Rajiv Lora, Insurance Claims Examiner [facility], [id number] 04/19/24 11:16 AM [facility] 04-17-2024 Note Called to try to do [id number] and it was approved for a year. Medication must be filled at [facility] specialty pharmacy. Will ask Rx to be sent there and follow-up to make sure the patient receives it. July Rankin, PharmD, BCACP 04/25/24 3:05 PM [facility] [phone] [facility] 04-17-2024 Note Specialty Pharmacy N [place]: [facility] Supervising Physician & Clinic:?? Vivian Billy NP; cardiology [facility] Ed is a 68 y.o. year old male patient with PMH of: Past Medical History: Diagnosis Date Asthma BPH (benign prostatic hyperplasia) CAD (coronary artery disease) CKD (chronic kidney disease), stage III (CMS/HCC) Depression DM (diabetes mellitus) (CMS/HCC) 2007 Type II Erectile dysfunction GERD (gastroesophageal reflux disease) H/O deep venous thrombosis HLD (hyperlipidemia) HTN (hypertension) Myocardial infarction ([facility]/HCC) 2021 ALLISON on CPAP Prostate cancer (CMS/HCC) Status post placement of implantable loop recorder Stroke ([facility]/HCC) 04/2015 right sided weakness Patient Active Problem List Diagnosis Prostate cancer (CMS/HCC) Cerebrovascular accident (CVA) (CMS/HCC) History of diabetes mellitus History of DVT (deep vein thrombosis) History of hypertension History of ischemic left MCA stroke Hypercholesterolemia Hypertension Partial seizure ([facility]) Type 2 diabetes mellitus without complication, with long-term current use of insulin ([facility]) Osteoarthritis of knee Malignant neoplasm of prostate ([facility]) NSTEMI (non-ST elevated myocardial infarction) ([facility]) Chest pain BPH associated with nocturia Essential hypertension, benign Type 2 diabetes mellitus with hyperglycemia ([facility]) Vitamin D deficiency ALLISON on CPAP Acute anemia Chronic systolic heart failure ([facility]) retirement (current) use of insulin ([facility]) Mixed hyperlipidemia Elevated lipoprotein(a) Coronary artery disease involving [place] coronary artery of [place] heart without angina pectoris Allergies Allergen Reactions Penicillins Hives Other reaction(s): Other (See Comments) Labetalol PharmD consulted for evaluation of Repatha for treatment of hyperlipidemia and coronary artery disease (Diagnosis Code: E78.41, I25.10). ?? Prescribed Dosing: Repatha 140mg/mL every 14 days Previous medications tried: Rosuastatin 40m02/23/2023- current Ezetimibe 10m02/23/2023- current No pertinent drug interactions were noted. No renal or hepatic dose adjustments necessary. Vitals: Ht Readings from Last 1 Encounters: 04/10/24 1.829 m (6') Wt Readings from Last 1 Encounters: 04/10/24 112 kg (247 lb) BMI Readings from Last 1 Encounters: 04/10/24 33.50 kg/m??? BP Readings from Last 1 Encounters: 04/10/24 149/89 Pulse Readings from Last 1 Encounters: 04/10/24 77 Pertinent labs: CMP: Lab Results Component Value Date GLUCOSE 144 (H) 03/13/2024 CALCIUM 8.9 03/13/2024 NA 139 03/13/2024 K 3.5 03/13/2024 CO2 30 03/13/2024 CL 102 03/13/2024 BUN 17 03/13/2024 CREATININE 0.86 03/13/2024 EGFR 94.3 03/13/2024 LFTs: Lab Results Component Value Date ALT 33 03/13/2024 AST 27 03/13/2024 ALKPHOS 68 03/13/2024 BILITOT 0.5 03/13/2024 ALBUMIN 3.8 03/13/2024 PROT 6.5 03/13/2024 CBC: Lab Results Component Value Date WBC 5.46 03/14/2024 HGB 11.6 (L) 03/14/2024 HCT 35.4 (L) 03/14/2024 MCV 87.0 03/14/2024 PLT 164 03/14/2024 NEUTROABS 2.94 02/02/2023 LYMPHSABS 2.18 02/02/2023 Lab Results Component Value Date CHOL 126 03/14/2024 CHOL 178 03/02/2023 CHOL 290 (H) 02/02/2023 Lab Results Component Value Date HDL 37 03/14/2024 HDL 42 03/02/2023 HDL 49 02/02/2023 Lab Results Component Value Date LDLCALC 64 03/14/2024 LDLCALC 113 03/02/2023 LDLCALC 212 (H) 02/02/2023 Lab Results Component Value Date TRIG 124 03/14/2024 TRIG 114 03/02/2023 TRIG 147 02/02/2023 Evaluation: Based on above labs within normal limits and trial and failure of above medications, patient is an appropriate candidate for this medication.? Follow-up: Will reach out to pt and submit PA on CMMs. ? July Rankin PharmD, JEFFREY 04/17/24 2:13 PM [facility] [phone] [facility] 04-17-2024 Note Received paper copy of the denial. It mentions that the LDL needs to be >70 for approval. However, the patient is very high risk given he had an event while LDL was <70 and he has DM. Spoke to pt and pts granddaughter. They are busy this week but should be able to come next week to sign the consent form. Will prepare appeal. Juyl Rankin PharmD, JEFFREY 04/24/24 11:31 AM [facility] [phone] [facility] 04-17-2024 Note Prior Authorization for Repatha has been denied on 04/20/24. Due to the Lipid panel on 03/15/24 being normal, Will fax appeal with LPA and ASCVD-related documents. Contacted prescriber and was told that due to the ASCVD history the goal for the LDL is actually <55, making him a candidate for the medication. Follow up on 04/26/24. Rajiv Lora, Insurance Claims Examiner [facility], [id number] 04/24/24 10:31 AM [facility] 04-17-2024 Note PA was submitted via CMM, waiting on a determination. Antoinette Gan, freelance data entry [facility] 04/17/24 3:38 PM [facility] 04-17-2024 Note PharmD Consult - PCS K9i Provider: Vivian Billy Department: Cardiology Eunice Marte is a 68 y.o. male with PMH of HTN, HLD, seizure disorder, DVT, type 2 DM, CVA (2019), chronic systolic HF, ALLISON. Current lipid lowering therapy: rosuvastatin 40mg, ezetimibe 10mg Statin intolerant?: no Pertinent labs: FLP: Lab Results Component Value Date CHOL 126 03/14/2024 HDL 37 03/14/2024 LDLCALC 64 03/14/2024 TRIG 124 03/14/2024 Apo-B 85 (03/14/24) Lp(a) 198 (03/14/24) LDL goal <55 mg/dL Patient indicated for PCSK9i due to elevated LDL, Apo-B, and Lp(a). Rx sent to [facility] to determine coverage and provide education to patient. Irasema White, PharmD, PGY1 Journeyman [employer] [facility] 04/17/24 [facility] 04-10-2024 Note [facility] Subjective Eunice Marte is a 68 y.o. year old male patient being seen for hospital follow up for NSTEMI s/p coronary angiogram on 03/14/24 with CAD and recommendations for medical management. He has past medical history of HTN, hyperlipidemia, seizure disorder, DVT, DM type 2, CVA (2019), chronic systolic HF, ALLISON. Hospital discharge summary (03/13-03/14/24): Final Discharge Diagnosis: Acute urinary syndrome/unstable angina, s/p cardiac cath, diffuse coronary disease, medical management # Tach/hypertension #Dyslipidemia #Chest pain resolved, Admission Diagnosis: Chest pain [R07.9] Hospital course: 68 y.o. male with a past medical history significant for asthma, HTN, HLD, CAD, DVT, BPH 2/2 prostate cancer s/p radiation therapy, CKD stage III, T2DM, depression, GERD, left MCA CVA in 2014, and [place] in 2021. On 03/12/2024 he reported chest pain and chest tightness w/o radiation at home, and was transported to [facility] via ambulance. In the ambulance, his pain resolved with the administration of asprin and nitroglycerine. His troponin on arrival to [place] ED was 104.3, so he was transferred to [facility] ED on the morning of 03/13/2024 for further evaluation. There, he was placed on a heparin drip, which was discontinued after two consecutive negative troponin labs. ECG showed sinus bradycardia with 1st degree AV block, but was otherwise normal. He was then admitted for further management with a cardiology consult to perform a Lexiscan stress test and echo. These showed moderate-severe reductions in apical and basilar perfusion with stress and a mild reduction in apical perfusion at rest, in addition to a LVEF of 50%, respectively. Patient underwent cardiac catheter tolerated very well, revealed diffuse coronary disease, medical management recommendation from cardiology standpoint, patient advised to follow-up with her PCP and be compliant to medication and diet, presently asymptomatic, follow-up with the PCP in 1 week postdischarge. Patient Active Problem List Diagnosis Prostate cancer ([facility]) Cerebrovascular accident (CVA) ([facility]) History of diabetes mellitus History of DVT (deep vein thrombosis) History of hypertension History of ischemic left MCA stroke Hypercholesterolemia Hypertension Partial seizure ([facility]) Type 2 diabetes mellitus without complication, with long-term current use of insulin ([facility]) Osteoarthritis of knee Malignant neoplasm of prostate ([facility]) NSTEMI (non-ST elevated myocardial infarction) ([facility]) Chest pain BPH associated with nocturia Essential hypertension, benign Type 2 diabetes mellitus with hyperglycemia ([facility]) Vitamin D deficiency ALLISON on CPAP Acute anemia Chronic systolic heart failure ([facility]) retirement (current) use of insulin ([facility]) Mixed hyperlipidemia Elevated lipoprotein(a) Coronary artery disease involving [place] coronary artery of [place] heart without angina pectoris Family History Problem Relation Name Age of Onset Heart disease Mother 58 Heart disease Maternal Grandmother heart trouble Heart disease Maternal Grandfather heart trouble Social History Tobacco Use Smoking status: Former Packs/day: 0.25 Years: 20.00 Additional pack years: 0.00 Total pack years: 5.00 Types: Cigarettes Quit date: 2014 Years since quittin.6 Passive exposure: Past Smokeless tobacco: Never Vaping Use Vaping Use: Never used Substance Use Topics Alcohol use: Not Currently Comment: Socially Drug use: Not Currently Types: Marijuana 04/10/24: -Here for follow up after hospitalization for CP where a heart cath was performed and found moderate CAD, no interventions, recommendation for aggressive medical management. -Today, patient denies SOB, CP, palpitations, dizziness/LH, syncope, edema. Denies return of cp since hospital discharge. -Endorses EASTON and reports it is not a new symptom for him. Review of Systems Cardiovascular: Positive for dyspnea on exertion. Negative for chest pain, leg swelling, near-syncope, palpitations and syncope. Respiratory: Negative for shortness of breath. Hematologic/Lymphatic: Negative for bleeding problem. Neurological: Negative for dizziness and light-headedness. Objective Visit Vitals BP 149/89 (BP Location: Left arm, Patient Position: Standing, BP Cuff Size: Adult long) Pulse 77 Ht 1.829 m (6') Wt 112 kg (247 lb) BMI 33.50 kg/m??? Smoking Status Former BSA 2.39 m??? Physical Exam Vitals reviewed. Constitutional: General: He is not in acute distress. Appearance: Normal appearance. He is not ill-appearing. HENT: Head: Normocephalic and atraumatic. Mouth/Throat: Mouth: Mucous membranes are moist. Eyes: Conjunctiva/sclera: Conjunctivae normal. Cardiovascular: Rate and Rhythm: Normal rate and regular rhythm. Pulses: Normal pulses. Heart sounds: Normal heart elbert (more content not included)... [facility] 03-14-2024 Note Attestation signed by Arnoldo Killian MD at 03/14/2024 2:23 PM I personally saw and examined the patient on the same date of service as resident/fellow Dr Louie. I discussed the findings and therapeutic plan with the resident/fellow Dr Louie. I agree with the documentation, except for any edits/updates below. Teaching Physician's Revisions: None Send underwent cardiac catheterization which showed moderate diffuse nonobstructive CAD. He is clinically stable without chest pain or shortness of breath. His echo showed low normal left ventricle ejection fraction on BMP is normal. Patient can be discharged home from cardiac point of view on current medications including aspirin, Lipitor, Zetia, Toprol XL and lisinopril. His LDL is 136 on the current cholesterol-lowering medications, he should be considered for PCSK9 inhibitor as outpatient. Arnoldo Killian MD, [facility] Cardiology Progress Note Subjective Subjective: Eunice Marte is a 68 y.o. male with PMH of DM, HTN transferred for chest pain from [facility]. This morning he stated that his chest pain had resolved completely, denied SOB, palpitations and dizziness. Underwent cath today. Objective Objective: Patient Vitals for the past 24 hrs: BP Temp Temp src Pulse Resp SpO2 Weight 03/14/24 1330 120/74 -- -- 64 11 98 % -- 03/14/24 1315 108/66 -- -- 70 21 97 % -- 03/14/24 1305 (!) 159/146 -- -- 78 14 99 % -- 03/14/24 1248 126/82 -- -- 75 16 100 % -- 03/14/24 1212 -- -- -- -- -- 100 % -- 03/14/24 1211 163/78 -- -- 69 16 100 % -- 03/14/24 0800 129/73 -- -- 62 12 100 % -- 03/14/24 0734 123/75 36.1 ???C (97 ???F) Temporal 67 14 100 % -- 03/14/24 0548 -- -- -- -- -- -- 111 kg (244 lb 6.4 oz) 03/14/24 0400 100/54 36.2 ???C (97.2 ???F) Temporal 74 12 98 % -- 03/14/24 0026 -- -- -- 68 17 98 % -- 03/14/24 0000 123/70 36.3 ???C (97.3 ???F) Temporal 69 14 99 % -- 03/13/24 2000 150/79 36.2 ???C (97.2 ???F) Temporal 68 16 100 % -- Physical Examination: GENERAL: AOx3, in no acute distress. HEAD: Atraumatic, normocephalic. NECK: No JVD present. CARDIAC: RRR. No murmur, rubs, or gallops. RESPIRATORY: CTAB, no increased effort of breathing. ABDOMEN: Soft, nontender, nondistended. EXTREMITIES: No lower extremity edema, peripheral pulses are 2+ bilaterally. Relevant Lab Results Encounter Date: 03/13/24 Electrocardiogram, 12-lead Result Value Ventricular Rate 58 Atrial Rate 58 CA Interval 232 QRS DURATION 82 QT Interval 446 QTC CALCULATION(BAZETT) 437 P [place] 62 R-[place] 4 T Wave [place] 49 Impression Sinus bradycardia with 1st degree A-V block Otherwise normal ECG When compared with ECG of 23-FEB-2023 14:05, CA interval has increased Criteria for Septal infarct are no longer Present T wave inversion no longer evident in Inferior lead Confirmed by Nina SCOTT, MICHI Rodriguez ([id number]) on 03/13/2024 1:44:00 PM Lab Results Component Value Date TROPONINI 0.03 03/13/2024 Complete Echo (TTE) w/wo Imaging Agent, Strain, 3D, Bubble Study Result Date: 03/13/2024 1 1 [facility] Heart Station [address] [place] [address] (fax) Echocardiogram-[facility] Name: EUNICE MARTE Study Date: 03/13/2024 09:36 AM B/P: 141 mmHg/87 mmHg HR: Date of : 1955 Location: [facility] Height: 73 in. Age: 68 year(s) Patient Room: 3104 Weight: 248 lb. Gender: Male Patient Status: InPt BSA: 2.36 m2 Indication: Chest Pain Examination: Echocardiogram (Complete), Lumason Contrast Image Quality: Technically Difficult study Patient Consent: Procedure explained to patient Exam Details Contrast: I.V. dose of Lumason Conclusions Left Ventricle: The left ventricle is normal size. Global left ventricular systolic function is at lower limits of normal. The EF is 50 % visually. Left ventricular wall thickness is normal. No regional wall motion abnormality. Right Ventricle: Right ventricular systolic function appears normal. Unable to assess right sided pressures due to lack of measurable tricuspid regurgitation. Left Atrium: The left atrium appears normal in size. Overall Conclusions: Due to suboptimal imaging Lumason contrast was administered for opacification and better delineation of endocardial borders. Measurements Left Ventricle Label Value Normal Value LVOTd 2.2 cm (19cm - 21cm) LVOT VTI 16.7 cm (18cm - 22cm) LVOT PGmax 2 mmHg LVEF visual 50 % LVDd, 2D 5 cm (4.2cm - 5.9cm) LVDs, 2D 3.81 cm (2.1cm - 4cm) IVSd, 2D 1.22 cm (0.6cm - 1.1cm) LVPWd, 2D 1.11 cm (0.6cm - 1cm) LV Mass, 2D ASE 224.27 g LV Mass Index, 2D ASE 95 g/m?? (50g/m?? - 102.4g/m??) RWT, MM 0.44 (0 - 0.42) LVSVI, 2D 23.7 ml/m2 LVOT PGmean 1 mmHg LVSV_LVOT 63 ml Left Atrium Label Value Normal Value LADs, 2D 3.5 cm (3cm - 4cm) Aorti (more content not included)... [facility] 03-14-2024 Note Hospital Medicine Discharge Summary Final Discharge Diagnosis: Acute urinary syndrome/unstable angina, s/p cardiac cath, diffuse coronary disease, medical management # Tach/hypertension #Dyslipidemia #Chest pain resolved, Admission Diagnosis: Chest pain [R07.9] Hospital course: 68 y.o. male with a past medical history significant for asthma, HTN, HLD, CAD, DVT, BPH 2/2 prostate cancer s/p radiation therapy, CKD stage III, T2DM, depression, GERD, left MCA CVA in 2014, and [place] in 2021. On 03/12/2024 he reported chest pain and chest tightness w/o radiation at home, and was transported to [facility] via ambulance. In the ambulance, his pain resolved with the administration of asprin and nitroglycerine. His troponin on arrival to [place] ED was 104.3, so he was transferred to [facility] ED on the morning of 03/13/2024 for further evaluation. There, he was placed on a heparin drip, which was discontinued after two consecutive negative troponin labs. ECG showed sinus bradycardia with 1st degree AV block, but was otherwise normal. He was then admitted for further management with a cardiology consult to perform a Lexiscan stress test and echo. These showed moderate-severe reductions in apical and basilar perfusion with stress and a mild reduction in apical perfusion at rest, in addition to a LVEF of 50%, respectively. Patient underwent cardiac catheter tolerated very well, revealed diffuse coronary disease, medical management recommendation from cardiology standpoint, patient advised to follow-up with her PCP and be compliant to medication and diet, presently asymptomatic, follow-up with the PCP in [address] Marie MD, Eunice is advised to follow up with you within 1-2 weeks. Follow-up with: None Scheduled appointments: Future Appointments Date Time Provider Department Center 04/10/2024 9:15 AM Vivian Billy NP [facility] 08/07/2024 10:15 AM Phyllis Acosta MD [facility] 10/29/2024 10:00 AM Silvano Martinez [facility] RAD [facility] Your medication list CHANGE how you take these medications Instructions Last Dose Given Next Dose Due Orgovyx 120 mg tablet Generic drug: relugolix What changed: Another medication with the same name was removed. Continue taking this medication, and follow the directions you see here. Take 120 mg by mouth in the morning. Take one tab 120mg daily CONTINUE taking these medications Instructions Last Dose Given Next Dose Due albuterol 90 mcg/actuation inhaler amLODIPine 10 mg tablet Commonly known as: Norvasc aspirin 81 mg EC tablet blood sugar diagnostic strip calcium carbonate-vitamin D3 600 mg-10 mcg (400 unit) tablet Commonly known as: Calcium with Vitamin D Take 1 tablet by mouth in the morning. cholecalciferol 50 MCG (2000 UT) tablet Commonly known as: Vitamin D-3 Depend Real Fit Brief Men L/XL misc Generic drug: diaper,brief,adult,disposable 1 Bag in the morning. ezetimibe 10 mg tablet Commonly known as: Zetia TAKE 1 TABLET BY MOUTH IN THE MORNING FiberCon 625 mg tablet Generic drug: calcium polycarbophil glipiZIDE 10 mg tablet Commonly known as: Glucotrol HumaLOG Mix 75-25 KwikPen 100 unit/mL (75-25) injection pen Generic drug: insulin lispro protamin-lispro Lantus Solostar U-100 Insulin 100 unit/mL (3 mL) injection pen Generic drug: insulin glargine lisinopriL-hydrochlorothiazide 20-12.5 mg tablet TAKE 1 TABLET BY MOUTH IN THE MORNING AND AT BEDTIME metFORMIN XR 500 mg 24 hr tablet Commonly known as: Glucophage-XR metoprolol succinate XL 50 mg 24 hr tablet Commonly known as: Toprol-XL TAKE 1 TABLET BY MOUTH IN THE MORNING DO NOT CRUSH OR CHEW Myrbetriq 50 mg tablet extended release 24 hr Generic drug: mirabegron pen needle, diabetic 32 gauge x 5/32 needle pioglitazone 30 mg tablet Commonly known as: Actos rosuvastatin 40 mg tablet Commonly known as: Crestor TAKE 1 TABLET BY MOUTH IN THE MORNING tamsulosin 0.4 mg 24 hr capsule Commonly known as: Flomax STOP taking these medications atorvastatin 80 mg tablet Commonly known as: Lipitor Eunice is allergic to penicillins and labetalol. Disposition: Home or Self Care () Discharge Condition: Fair Code Status: Full Code Diagnostic Results Hematology: Results from last 7 days Lab Units 03/14/24 0428 03/13/24 0801 03/13/24 0612 WBC AUTO 10*3/uL 5.46 -- 5.62 HEMOGLOBIN g/dL 11.6* -- 11.9* HEMATOCRIT % 35.4* -- 36.9* MCV fL 87.0 -- 89.1 PLATELETS AUTO 10*3/uL 164 171 159 Chemistry: Results from last 7 days Lab Units 03/13/24 0612 SODIUM mmol/L 139 POTASSIUM mmol/L 3.5 CHLORIDE mmol/L 102 CO2 mmol/L 30 BUN mg/dL 17 CREATININE mg/dL 0.86 GLUCOSE mg/dL 144* MAGNESIUM mg/dL 2.0 CALCIUM mg/dL 8.9 PHOSPHORUS mg/dL 3.6 Results from last 7 days Lab Units 03/13/24 0612 AST U/L 27 ALT U/L 33 ALK PHOS U/L 68 BILIRUBIN TOTAL mg/dL 0.5 Test Results Pending At Discharge: Pen (more content not included)... [facility] 03-14-2024 Note Patient: Eunice Ordaz lbwilder Procedure Information Date/Time: 03/14/24 1024 Procedure: Coronary angiography Location: [facility] APPLICATIONS PROGRAMMER ANALYST 2 BIPLAN / [facility]ULAR [facility] (Cath) Providers: Mata Burleson MD Clinical information reviewed: Allergies Physical Exam Airway Mallampati: IV TM distance: >3 FB Neck ROM: full Cardiovascular Rhythm: regular Rate: normal Dental Pulmonary Breath sounds clear to auscultation Abdominal Abdomen: soft Bowel sounds: normal Anesthesia Plan ASA 3 other (Conscious sedation) Anesthetic plan and risks discussed with patient. Use of blood products discussed with patient who consented to blood products. Plan discussed with attending. Additional Equipment Requests [facility] 03-14-2024 Note Hospital Medicine Daily Progress Note - 03/14/2024 11:50 AM; Room: [address] [place] [address] Admission: 03/13/2024 4:55 AM; Length of stay: 1 days THE HOSPITALIST TEAM PREFERS TO USE [employer] NOW CHAT FOR COMMUNICATION 7AM-7PM. IF I DO NOT RESPOND WITHIN 15 MINUTES, PLEASE PAGE ME/CALL THROUGH THE CATERING SOUS CHEF. FROM 7PM-7AM, PLEASE PAGE [phone](COVR) Code Status: Full Code Barriers to Discharge: Complete cardiovascular workup Expected Discharge Date: 03/15/2024 Discharge Destination: home Overview Patient is seen for evaluation and management of chest pain. History of Present Illness Eunice Marte is an 68 y.o. male with a past medical history significant for asthma, HTN, HLD, CAD, DVT, BPH 2/2 prostate cancer s/p radiation therapy, CKD stage III, T2DM, depression, GERD, left MCA CVA in 2014, and [place] in 2021. On 03/12/2024 he reported chest pain and chest tightness w/o radiation at home, and was transported to [facility] via ambulance. In the ambulance, his pain resolved with the administration of asprin and nitroglycerine. His troponin on arrival to [place] ED was 104.3, so he was transferred to [facility] ED on the morning of 03/13/2024 for further evaluation. There, he was placed on a heparin drip, which was discontinued after two consecutive negative troponin labs. ECG showed sinus bradycardia with 1st degree AV block, but was otherwise normal. He was then admitted for further management with a cardiology consult to perform a Lexiscan stress test and echo. These showed moderate-severe reductions in apical and basilar perfusion with stress and a mild reduction in apical perfusion at rest, in addition to a LVEF of 50%, respectively. Subjective Nursing reported no acute events overnight. Eunice was evaluated at bedside this morning. He was wearing his CPAP, so communication was limited to yes or no questions. He reported no complaints this morning, and was waiting to have his catheterization today. Eunice reported that he thought he had some leg swelling today. He denied the presence of headache, lightheadedness, chest pain, palpitations, shortness of breath, back pain, abdominal pain, diarrhea, and constipation. Physical Exam Visit Vitals BP 129/73 Pulse 62 Temp 36.1 ???C (97 ???F) (Temporal) Resp 12 Intake/Output Summary (Last 24 hours) at 03/14/2024 1150 Last data filed at 03/14/2024 0803 Gross per 24 hour Intake 35.16 ml Output 1050 ml Net -1014.84 ml Physical Exam Constitutional: General: He is not in acute distress. Appearance: He is obese. He is not diaphoretic. HENT: Nose: Comments: CPAP in place Mouth/Throat: Mouth: Mucous membranes are moist. Pharynx: Oropharynx is clear. Cardiovascular: Rate and Rhythm: Normal rate and regular rhythm. Pulses: Normal pulses. Heart sounds: Normal heart sounds. Pulmonary: Effort: Pulmonary effort is normal. Breath sounds: Normal breath sounds. Abdominal: General: There is distension. Palpations: There is no mass. Tenderness: There is no abdominal tenderness. Comments: Abdomen was firm Musculoskeletal: General: No swelling. Right lower leg: No edema. Left lower leg: No edema. Skin: General: Skin is warm and dry. Neurological: Mental Status: He is alert and oriented to person, place, and time. Psychiatric: Mood and Affect: Mood normal. Behavior: Behavior normal. Estimated body mass index is 32.24 kg/m??? as calculated from the following: Height as of this encounter: 1.854 m (6' 1 ). Weight as of this encounter: 111 kg (244 lb 6.4 oz). 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 Unstable Angina Abnormal findings on stress test 2x Troponin 0.03 on admission Cardiology following; plan for catheterization today Begin metoprolol XL 50 mg Continue current regimen of asprin, amlodipine, hydrochlorothiazide, linisopril, and atorvastatin Nitroglycerine PRN Chronic Systolic CHF; NYHA Class II LVEF 50% on echo Continue GDMT Essential HTN Continue linisopril, hydrochlorothiazide, and amlodipine T2DM; Controlled Begin diabetic diet after catheterization On lantus 25 units nightly + sliding scale HumaLog; patient reports being on lantus 45 units at home. Reevaluate with diet initiation Hyperlipidemia Continue atorvastatin and ezetimbe BPH 2/2 Prostate Cancer s/p Radiation Therapy Continue flomax Acute Normocytic Anemia; Likely Anemia of Chronic Disease Iron, Vitamin B12, and Folate studies WNL Daily CBC ALLISON Continue nightly CPAP use Left MCA Stroke s/p loop recorder in place; (more content not included)... [facility] 03-13-2024 Note Case was discussed w [employer] the [facility] on 03/13/2024. I agree with the history, physical, assessment, and plan of care. I discussed the findings and therapeutic plan. I agree with the documentation, except for any updates below. Puja Montes De Oca MD [facility] 03-13-2024 Note 03/13/24 1351 Admission Assessment Questions Verify insurance with patient Yes Do you understand medical disease or what brought you into the hospital? Yes Who is your current PCP? Adilson Salazar MD Can I schedule a follow up appointment for you at the time of discharge? Yes (afternoons) Do you understand why you are taking your current medications? Yes Are you taking your medications as prescribed? Yes Did patient provide teach back? No Pharmacy Bedside Delivery Status Interested Does the patient have a mental health case manager assigned to them through their insurance? No Living Arrangement (Current/Prior to Hospitalization) Private residence;Home self care (lives w/family in one story home. No entry stairs) Does the patient have history of HHC or SNF? Yes (HHC in past does not recall name. Was in a rehab facility in [place]) Assistive Device Cane;Other (Comment) (CPAP) Patient's goal for discharge home Was patient reminded that goal for discharge is 11am? No Does the patient have transportation at discharge? Yes Type of Residence Private residence Is PT/OT appropriate? No Is PT/OT ordered? No Is SW consult appropriate? No Is SW consult ordered? No Do you understand the benefits of MyChart? Yes Were you able to send link and activate MyChart? No [facility] 03-13-2024 Note Hospital Medicine History and Physical 03/13/2024 8:16 AM THE HOSPITALIST TEAM PREFERS TO USE [employer] NOW CHAT FOR COMMUNICATION 7AM-7PM. IF I DO NOT RESPOND WITHIN 15 MINUTES, PLEASE PAGE ME/CALL THROUGH THE CATERING SOUS CHEF. FROM 7PM-7AM, PLEASE PAGE [phone](COVR) Chief Complaint No chief complaint on file. History of Present Illness Eunice Marte is an 68 y.o. male who came from [facility] with NSTEMI. Patient has past medical history of hyperlipidemia, hypertension, CKD 3, diabetes mellitus type 2 with long-term use of insulin, CVA in 2014, [place] in 2021. Patient reports last night he began to have chest pain while watching TV, described as tightness in the middle of his chest, no radiation. Patient received nitro and aspirin en route to the [facility] which relieved his chest pain. His troponin on their high intensity scale was noted to be 104.3 so he was transferred here for further cardiac evaluation. He denies any current chest pain, no shortness of breath. He denies any abdominal pain, no nausea or vomiting. He has not had any chest pain since last night before it was treated with nitro. Patient had stress test January 2023 that was negative for ischemia, he had stress test at that time for workup for surgery with urology. Initially cardiology was consulted, however initial troponin here was negative. Heparin drip was discontinued, he will undergo stress testing and if positive cardiology will see him. Labs; WBC 5.62, hemoglobin 11.9, BNP 65, lactate 1.0, troponin 0.03, glucose 144, sodium 139, K3.5, Phos 3.6, mag 2.0 Review of System and Physical Exam Temp: [36.5 ???C (97.7 ???F)] 36.5 ???C (97.7 ???F) Heart Rate: [61-68] 61 Resp: [12-15] 15 BP: (136-153)/(80-87) 136/87 Physical Exam Vitals reviewed. Constitutional: General: He is awake. He is not in acute distress. Appearance: Normal appearance. He is not ill-appearing. Cardiovascular: Rate and Rhythm: Normal rate and regular rhythm. Pulses: Radial pulses are 2+ on the right side and 2+ on the left side. Dorsalis pedis pulses are 2+ on the right side and 2+ on the left side. Heart sounds: Normal heart sounds. Pulmonary: Effort: Pulmonary effort is normal. No tachypnea, accessory muscle usage or respiratory distress. Breath sounds: Normal breath sounds. Abdominal: General: Bowel sounds are normal. There is no distension. Palpations: Abdomen is soft. Tenderness: There is no abdominal tenderness. Musculoskeletal: Right lower leg: No edema. Left lower leg: No edema. Skin: General: Skin is warm and dry. Neurological: Mental Status: He is alert. Mental status is at baseline. Comments: Oriented to person, hospital, situation, did not recall the date, thought it was January 11 Psychiatric: Attention and Perception: Attention normal. Mood and Affect: Mood normal. Speech: Speech normal. Behavior: Behavior is cooperative. Review of Systems Constitutional: Negative for activity change, appetite change, chills, fatigue and fever. HENT: Negative. Eyes: Negative. Respiratory: Negative for shortness of breath. Cardiovascular: Positive for chest pain (resolved after nitro last night). Gastrointestinal: Negative. Negative for abdominal pain. Endocrine: Negative. Genitourinary: Negative. Musculoskeletal: Positive for gait problem (baseline, uses cane). Skin: Negative. Allergic/Immunologic: Negative. Hematological: Negative. Psychiatric/Behavioral: Negative. Problem List Patient Active Problem List Diagnosis Date Noted NSTEMI (non-ST elevated myocardial infarction) ([facility]) 03/13/2024 Chest pain 03/13/2024 BPH associated with nocturia 08/05/2023 Essential hypertension, benign 08/05/2023 Type 2 diabetes mellitus with hyperglycemia ([facility]) 08/05/2023 Vitamin D deficiency 08/05/2023 History of diabetes mellitus 01/28/2023 History of DVT (deep vein thrombosis) 01/28/2023 History of hypertension 01/28/2023 History of ischemic left MCA stroke 01/28/2023 Partial seizure ([facility]) 01/28/2023 Prostate cancer ([facility]) 11/30/2022 Cerebrovascular accident (CVA) ([facility]) 06/05/2019 Hyperlipidemia 01/16/2014 Hypertension 01/16/2014 Type 2 diabetes mellitus without complication ([facility]) 01/16/2014 Osteoarthritis of knee 01/16/2014 Malignant neoplasm of prostate ([facility]) 05/30/2023 Assessment and Plan NSTEMI r/o ischemia Stress test, ECHO Trend troponin Second troponin negative, no active chest pain, will dc heparin gtt DC cardiology consult, reconsult if stress is positive nitroglycerin PRN for chest pain Hold metoprolol for stress test NPO Essential hypertension Continue lisinopril, hydrochlorothiazide, amlodipine Chronic Systolic Congestive Heart Failure, NYHA class II Has loop recorder in place, followed by Dr. Schmidt Continue GDMT; lisinopril, metoprolol, lipitor Type 2 diabetes mellitus with long-term use of insulin with hyperglycemia SSI ACHS (more content not included)... [facility] 02-14-2024 Note aPATIENT: Eunice noble DATE OF : 1955 DATE OF VISIT: 02/14/24 Urology Clinic H&P PHYLLIS ACOSTA M.D., F.A.C.S. 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 Eunice Marte is a 68 y.o. -[place] male with history of HTN, HLD, Diabetes Mellitus Type 2, Stroke (04/2015 resulted in right sided weakness since has improved), CAD, [place] in 2021 on ASA 81mg s/p implantable [...] urologist Milvia Daniel MD on 07/06/[address] [facility] for a total of 24 cores (12 systematic cores x2 and 4 cores obtained from [facility] #1). Pathology per [facility] review revealed acinar adenocarcinoma of the prostate, [place] 3+4= 7; GG 2 involving 2/13 in [...] distant metastatic disease. Decipher prostate biopsy genomic customer development representative was obtained on prostate biopsy above, reported [...] using a cane accompanied by his . Patient's memory has been affected by his a prior stroke, waxing and waning. He denies changes in health since last visit, specifically no gross hematuria, dysuria, however, has moderately significant LUTS, nocturia x0. He reports being happy with his urination. Right foot swelling resolved with out intervention. Prior AUA-SI , QoL 5 (unhappy) despite being on Myrbetriq [...] nodule, cT2a. I reviewed and discussed outside funeral pre need consultant note, outside laboratory tests, outside imaging including MRI prostate and PSMA, pathology result of prostate biopsy, and decipher score. Mr. Marte has unfavorable intermediate risk prostate cancer by NCCN criteria since he has 2 intermediate risk factors (PSA 11.09 ng/mL and GG2 prostate cancer), however, decipher genomic customer development representative designate patient as a high risk with a score of 0.73. His ECOG performance status 2. After thorough and prolonged discussion, Mr. Marte underwent EBRT to the prostate and SV concurrently with ADT with Orgovyx which he is currently taking. I reviewed and discussed most recent PSA <0.1 ng/ML, testosterone 11 ng/dL on 02/06/2024 indicating appropriate response to EBRT and hormone therapy. Further I reviewed and discussed DEXA bone density scan on 05/2023 revealed normal bone mineral density per WHO criteria. Mr. Marte had an ECHO 02/17/2023 revealed normal global left ventricular systolic function, EF (more content not included)... [facility] 10-31-2023 Note APPLICATIONS ANALYST: Prostate Prostate completed 07/2023. Vitals WNL. Pt denies any dysuria, hematuria. Pt. Denies any diarrhea. Pt. Denies any pain. [facility] 10-31-2023 Note [facility] Department of Radiation Oncology [address] [place] [address] RADIATION ONCOLOGY FOLLOW UP NOTE Date of [...] right sided weakness since has improved), CAD, [place] in 2021 on ASA 81mg s/p implantable [...] bilaterally. LYMPH: No appreciable adenopathy. NEURO: AOx4, candy separator enrobing grossly normal, ambulates with a cane, mild residual weakness from remote CVA. PSYCH: Appropriate affect for the clinical situation. Insight and judgment not impaired. LAB (more content not included)... [facility] 09-20-2023 Note aPATIENT: Eunice noble DATE OF : 1955 DATE OF VISIT: 09/20/23 Urology Clinic H&P PHYLLIS ACOSTA M.D., F.A.C.S. 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 Eunice Marte is a 67 y.o. -[place] male with history of HTN, HLD, Diabetes Mellitus Type 2, Stroke (04/2015 resulted in right sided weakness since has improved), CAD, [place] in 2021 on ASA 81mg s/p implantable [...] urologist Milvia Daniel MD on 07/06/[address] [facility] for a total of 24 cores (12 systematic cores x2 and 4 cores obtained from [facility] #1). Pathology per [facility] review revealed acinar adenocarcinoma of the prostate, [place] 3+4= 7; GG 2 involving 2/13 in [...] distant metastatic disease. Decipher prostate biopsy genomic customer development representative was obtained on prostate biopsy above, reported [...] nodule, cT2a. I reviewed and discussed outside funeral pre need consultant note, outside laboratory tests, outside imaging including MRI prostate and PSMA, pathology result of prostate biopsy, and decipher score. Mr. Marte has unfavorable intermediate risk prostate cancer by NCCN criteria since he has 2 intermediate risk factors (PSA 11.09 ng/mL and GG2 prostate cancer), however, decipher genomic customer development representative designate patient as a high risk with [...] regional wall motion (more content not included)... [facility] 07-27-2023 Note APPLICATIONS ANALYST NOTE: Eunice is unaccompanied for this visit. Pt has completed 24/28 fx RT to Prostate/Svs. Pt denies c/o pain, dysuria, hematuria, diarrhea, blood in stool, nocturia or fatigue. [facility] 07-27-2023 Note [facility] Department of Radiation Oncology [address] [place] [address] Date of Service: 07/27/23 Patient Name: Eunice [...] Consulting Physician (Urology) Silvano Martinez (Radiation Oncology) [facility] 07-21-2023 Note OTV prostate Symptoms are manageable ramses Stoner [facility] 07-21-2023 Note [facility] t [facility] Department of Radiation Oncology [address] [place] [address] Date of Service: 07/21/23 Patient Name: Eunice [...] Consulting Physician (Urology) Silvano Martinez (Radiation Oncology) [facility] 07-13-2023 Note [facility] Department of Radiation Oncology [address] [place] [address] Date of Service: 07/13/23 Patient Name: Eunice [...] Consulting Physician (Urology) Silvano Martinez (Radiation Oncology) [facility] 07-13-2023 Note APPLICATIONS ANALYST: Prostate fx. Vitals WNL, rad site WNL. Pt cont with nocturia which was present prior to tx. Pt. Denies any dysuria, hematuria or diarrhea. Continues with fatigue. Is continuing with ADL's. No further complaints. [facility] 07-07-2023 Note [facility] Department of Radiation Oncology [address] [place] [address] Date of Service: 07/07/23 Patient Name: Eunice [...] Consulting Physician (Urology) Silvano Martinez (Radiation Oncology) [facility] 07-07-2023 Note APPLICATIONS ANALYST NOTE: Eunice is accompanied by Shayy [...] states normal bowel movements. Reports mild fatigue. [facility] 06-30-2023 Note Rehab Services Rad/O wv Clinic Screen Therapy Screen Completed-No Needs at [...] arise-Physician Aware. Brandon Trejo MOT, OTR/L, CLT [facility] 06-30-2023 Note [facility] Department of Radiation Oncology [address] [place] [address] Date of Service: 06/30/23 Patient Name: Eunice [...] Consulting Physician (Urology) Silvano Martinez (Radiation Oncology) [facility] 06-30-2023 Note Accompanied by grand daughter, Jill. Denies urgency, incomplete emptying, burning. States has increased frequency, nocturia 4-5 times per night. Denies diarrhea. Denies hematuria or hematochezia. States has noticed increase in fatigue. Encouraged to take a walk/increase activity during day. Denies dyspnea or cough. [facility] 06-23-2023 Note [facility] Department of Radiation Oncology [address] [place] [address] Date of Service: 06/23/23 Patient Name: Eunice [...] Consulting Physician (Urology) Silvano Martinez (Radiation Oncology) [facility] 06-23-2023 Note APPLICATIONS ANALYST: Prostate 11/16 fx. Pt vitals with bp above baseline, pt remains asymptomatic. Pt. States he did not take his bp med and will do so when he returns home. Pt. Denies any difficulties urinating, diarrhea or pain. No further complaints at this time. [facility] 06-07-2023 Note aPATIENT: Eunice noble DATE OF : 1955 DATE OF VISIT: 06/07/23 Urology Clinic H&P PHYLLIS ACOSTA M.D., F.A.C.S. 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 Eunice Marte is a 67 y.o. -[place] male with history of HTN, HLD, Diabetes Mellitus Type 2, Stroke (04/2015 resulted in right sided weakness since has improved), CAD, [place] in 2021 on ASA 81mg s/p implantable [...] urologist Milvia Daniel MD on 07/06/[address] [facility] for a total of 24 cores (12 systematic cores x2 and 4 cores obtained from [facility] #1). Pathology per [facility] review revealed acinar adenocarcinoma of the prostate, [place] 3+4= 7; GG 2 involving 2/13 in [...] distant metastatic disease. Decipher prostate biopsy genomic customer development representative was obtained on prostate biopsy above, reported [...] nodule, cT2a. I reviewed and discussed outside funeral pre need consultant note, outside laboratory tests, outside imaging including MRI prostate and PSMA, pathology result of prostate biopsy, and decipher score. Mr. Marte has unfavorable intermediate risk prostate cancer by NCCN criteria since he has 2 intermediate risk factors (PSA 11.09 ng/mL and GG2 prostate cancer), however, decipher genomic customer development representative designate patient as a high risk with a score of 0.73. His ECOG performance status 2. After thorough and prolonged discussion last visit and today, Mr. Marte and his opted to undergo EBRT to prostate and ADT with Orgovyx. He was approved for ADT with Orgovyx by patient sales office assistant program however he has not picked [...] extensively for yeison (more content not included)... [facility] 05-30-2023 Note COMMUNICATIONS SPECIALIST consult for prost ate cancer. Pt is here with his Shayy. Work note given to patient's . Herbie pearce [facility] 05-30-2023 Note [facility] a t [facility] Department of Radiation Oncology [address] [place] [address] RADIATION ONCOLOGY CONSULTATION NOTE Date of Service: [...] right sided weakness since has improved), CAD, [place] in 2021 on ASA 81mg s/p implantable [...] bilaterally. LYMPH: No appreciable adenopathy. NEURO: AOx4, candy separator enrobing grossly normal, ambulates with a cane, mild [...] performed by urologist Dr. Milvia Daniel at [facility] (more content not included)... [facility] 05-30-2023 Note PHYSICIAN CLINICAL T REATMENT PLANNING [...] pelvis Isocenters: tentative isocenter Slice thickness: 3mm [facility] Scan requested: No Simulation will be performed on CT Scanner to accomplish a reproducible treatment position, to determine optimal beam arrangements and to .design beam modifying devices and immobilization devices: Alphacradle. Verification Sim (films Day1): Yes Ongoing images: Daily image guided radiotherapy. Image fusion requested: will be performed using patient's MRI A 4D CT is not necessary. Additional comments: [facility] 02-02-2023 Hospital Discharge instructions Patient Education 02/02/2023 [...] the likelihood that the cancer will spread. Minneola 6 or lower: This indicates that the cancer cells look similar to normal prostate cells (well differentiated). Minneola 7: This indicates that the cancer cells [...] stress of having cancer. General instructions Take nmzw-ewa-checqbm and prescription medicines only as told by your health care provider. If you have to go to the hospital, notify your cancer specialist (oncologist). Keep all follow-up visits. This is important. Where to find more information [place] [employer]: www.cancer.org [place] Society of Clinical Oncology: www.cancer.net National Cancer [place]: www.cancer.gov Contact a health care provider if: [...] provider. Document Revised: 11/04/2021 Document Reviewed: 11/04/2021 [employer]amp Patient Education 2022 [employer]. Follow Up Care 11/03/2022 08:38:11 With:Dewey COTTO, ARIAN Alegria, URO Address: When: Unknown [facility] Hospital Discharge instructions Patient Education 11/03/2022 [...] who: Are older than age 65. Are -Ivorian. Are obese. Have a family history of [...] cells. Follow these instructions at home: Take dvhz-nwp-ywrxhpj and prescription medicines only as told by [...] 08/08/2006 Document Revised: 07/21/2018 Document Reviewed: 04/18/2017 [employer] Patient Education 2020 [employer]. Follow Up Care 10/06/2022 08:46:11 With:Dewey COTTO, ARIAN Alegria, URO Address: When: Unknown [facility] 10-06-2022 Hospital Discharge instructions Patient Education 10/06/2022 [...] 07/25/2013 Document Revised: 03/28/2019 Document Reviewed: 03/28/2019 [employer] Patient Education 2020 [employer]. 10/06/2022 08:07:38 Brachytherapy for Prostate Cancer Brachytherapy [...] including vitamins, herbs, eye drops, creams, and fysl-ira-eqmnpxo medicines. Any problems you or family members [...] 01/16/2007 Document Revised: 07/21/2018 Document Reviewed: 08/17/2017 [employer] Patient Education 2020 [employer]. 10/06/2022 08:07:36 Laparoscopic Prostatectomy Laparoscopic Prostatectomy Laparoscopic [...] including vitamins, herbs, eye drops, creams, and pcvv-ixz-jnpbwmi medicines. Any problems you or family members [...] 08/08/2006 Document Revised: 07/21/2018 Document Reviewed: 07/25/2017 [employer] Patient Education 2020 [employer]. 10/06/2022 07:50:11 Prostate Cancer Prostate Cancer The [...] who: Are older than age 65. Are -[place]vorian. Are obese. Have a family history of [...] cells. Follow these instructions at home: Take mgsf-hrb-dblwlce and prescription medicines only as told by [...] 08/08/2006 Document Revised: 07/21/2018 Document Reviewed: 04/18/2017 [employer] Patient Education 2020 [employer]. Follow Up Care 08/04/2022 10:29:21 With:Dewey COTTO, ARIAN Alegria, URO Address: When: Unknown [facility] 08-04-2022 Hospital Discharge instructions Patient Education [...] including vitamins, herbs, eye drops, creams, and hpgz-mrh-dkrvkga medicines. Any problems you or family members [...] 01/16/2007 Document Revised: 07/21/2018 Document Reviewed: 08/17/2017 [employer] Patient Education 2020 [employer] Follow Up Care 06/02/2022 10:42:40 With:Dewey COTTO, ARIAN Alegria, URO Address: When:1 month Comments:Discuss PSMA PET scan & treatment options [facility] 07-21-2022 Note OPERATIVE NOTE OPERATION DATE: [...] in good condition. CC: Adilson Salazar M.D. [facility] 07-06-2022 Hospital Discharge instructions Patient Education [...] for your post-operative appointment in 1-2 weeks [phone] or [phone] Follow Up Care 06/02/2022 10:25:59 With:Milvia Palomo Address: [address], [place] [address]- [phone] Business (1) [address], [address] [address] [phone] Business (1) When: Unknown Comments:Office to followup appointment in 2 weeks for pathology review [facility] 07-06-2022 Evaluation + Plan note Extrac shelby from: Title:Post-anesthesia - General Author:Scout Dumont DO Date:07/06/22 Plan Transfer/ Discharge: Condition stable. Extracted from: Title:EU - MRI fusion transp erineal prostate biopsy Author:Milvia Palomo MD Date:07/06/22 Impression and Plan Diagnosis Elevated PSA ([id number]-OF R97.20, Discharge, Medical). Diagnosis Elevated PSA ([id number] R97.20, Discharge, Medical). Counseled: Patient, Family. Extracted from: Title:Pre-anesthesia - Adult Author:Scout Lamas Jr., DO Date:07/06/22 Plan [place] Society of Anesthesiologists (ASA) physical status classification: Class III. Anesthetic Preoperative Plan Anesthesia: Monitored anesthesia care. Anesthetic plan, risks, benefits, and alternatives discussed with the patient and/or family. Patient verbalized understanding. Adverse reactions, complications, and alternatives discujssed. Consent signed and on chart.. Future Appointments Appointment Date:07/21/2022 09:30:00 AM Scheduled Provider:Milvia Palomo MD Location:[facility] Appointment Type:URO Office Visit Appointment Date:10/12/2022 10:30:00 AM Scheduled Provider:Asim Tanner Jr., MD Location:[facility] Appointment Type:URO Office Visit [facility]11-14-2022 Note [id number]:127[facility] 06-25-2022 NoteChief Complaint consultation for LLQ [...] mL, NEB, BID c (more content not included)...[facility] Result Comment: Electronically Signed By: BASIL COTTO, Curtis Monzon\Date and Time Signed: 06/25/22 15:55 [id number] Note [id number]:127[facility] 06-02-2022 Hospital Discharge instructions Patient Education [...] Follow these instructions at home: Medicines Take rjvj-zgg-rzquynn and prescription medicines only as told by [...] 08/05/2001 Document Revised: 07/21/2018 Document Reviewed: 08/24/2017 Bl[employer] Patient Education 2020 [employer]. Follow Up Care 04/21/2022 12:43:56 With:Dewey COTTO, ARIAN Alegria, URO Address: [address] [place] [address] [phone] When: Unknown [facility] 08-31-2022 Hospital Discharge instructions Patient Education [...] have oneof these risk factors: ?Being of -[place]ian descent. ?Having a family history of prostate [...] you: Are older than age 55. Are -[place]ian. Have a father, brother, or uncle who [...] 05/19/2018 Document Revised: 07/21/2018 Document Reviewed: 05/19/2018 [employer] Patient Education 2020 [employer] Follow Up Care 03/08/2022 11:37:35 With:Dewey COTTO, Milvia Lucia, URL, URO Address: When: Unknown [facility] evaluation + Plan note Future Appointments Appointment Date:05/12/2022 10:45:00 AM Scheduled Provider:Milvia Palomo MD Location:[facility] Appointment Type:URO Office Visit Appointment Date:10/12/2022 10:30:00 AM Scheduled Provider:Asim Tanner Jr., MD Location:[facility] Appointment Type:URO Office Visit [facility] evaluation + Plan note Future Appointments Appointment Date:06/29/2022 03:30:00 PM Scheduled Provider: Location:[facility] Surgical Services Appointment Type:Surgical PAT FT Appointment Date:07/06/2022 01:30:00 PM Scheduled Provider: Location:[facility] Services Appointment Type:Surgery FT Appointment Date:07/21/2022 09:30:00 AM Scheduled Provider:Milvia Palomo MD Location:[facility] Appointment Type:URO Office Visit Appointment Date:10/12/2022 10:30:00 AM Scheduled Provider:Asim Tanner Jr., MD Location:[facility] Appointment Type:URO Office Visit [facility] evaluation + Plan note Future Appointments Appointment Date:06/29/2022 03:00:00 PM Scheduled Provider: Location:[facility] Appointment Type:Surgery PAT COVID Testing Appointment Date:06/29/2022 03:30:00 PM Scheduled Provider: Location:[facility] Appointment Type:Surgical PAT FT Appointment Date:07/06/2022 01:30:00 PM Scheduled Provider: Location:[facility] Appointment Type:Surgery FT Appointment Date:07/21/2022 09:30:00 AM Scheduled Provider:Milvia Palomo MD Location:[facility] Appointment Type:URO Office Visit Appointment Date:10/12/2022 10:30:00 AM Scheduled Provider:Asim Tanner Jr., MD [facility] [facility] Appointment Type:URO Office Visit General Surgery [place] Evaluation + Plan note Future Appointments Appointment Date:07/06/2022 01:30:00 PM Scheduled Provider: Location:[facility] Appointment Type:Surgery FT Appointment Date:07/21/2022 09:30:00 AM Scheduled Provider:Milvia Palomo MD Location:[facility] Appointment Type:URO Office Visit Appointment Date:10/12/2022 10:30:00 AM Scheduled Provider:Asim Tanner Jr., MD Location:[facility]ment [facility] Future Appointments Appointment Date:09/15/2022 10:30:00 AM Scheduled Provider:Milvia Palomo MD Location:[facility] Appointment Type:URO Office Visit [facility] evaluation + Plan note Future Appointments Appointment Date:10/06/2022 07:45:00 AM Scheduled Provider:Milvia Palomo MD Location:[facility] Appointment Type:URO [facility] Future Appointments Appointment Date:11/03/2022 10:10:00 AM Scheduled Provider:Milvia Palomo MD Location:[facility] Appointment Type:URO Office Visit Diagnostic Tests Pending * PSA Free & Total 10/06/22 [facility] evaluation + Plan note Future Appointments Appointment Date:02/02/2023 10:15:00 AM Scheduled Provider:Milvia Palomo MD Location:[facility] Appointment Type:URO Office Visit [facility] evaluation noteNo assessment information available [facility] Work Phone: evaluation note* Diagnosis Type 2 diabetes mellitus with hyperglycemia, with long-term current use of insulin ([facility]) [facility] N[facility] No data available for this section [facility] Hospital Discharge instructions No data available for this section General Surgery [place] Progress note No data available for this section [facility] Discharge Instructions * Discharge Instr - [...] Extended Emergency Contact Information [facility] Relation: Spouse System Software Developer needed? No Past Surgical History: No past surgical history on file. Immunization History: There is no immunization history on file for this patient. Active Problems: Patient Active Problem List Diagnosis Code Cerebrovascular accident (CVA) ([facility]) I63.9 Acute left hemiparesis ([facility]) G81.94 History of ischemic left MCA stroke [...] MENTAL STATUS:} IV Access: { JOSIE IV ACCESS:002563572} Nursing Mobility/ADLs: Walking {CHP DME ADLs:884675289} Transfer {CHP DME ADLs:656432622} Bathing {CHP DME ADLs:897905011} Dressing {CHP DME ADLs:347759776} Toileting {CHP DME ADLs:689429310} Feeding {CHP DME ADLs:307632884} Audio Production Engineer {CHP DME ADLs:966010284} Med Delivery { JOSIE MED Delivery:422027924} Wound Care Documentation and Therapy: Elimination: Continence: Bowel: {YES / NO:} Bladder: {YES / NO:} Urinary Catheter: {Urinary Catheter:405952987} Colostomy/Ileostomy/Ileal Conduit: {YES / NO:} Date of Last BM: Intake/Output Summary (Last 24 hours) at 06/08/2019 1738 Last data filed at 06/08/2019 1600 Gross per 24 hour Intake Output 950 ml Net -950 ml I/O last 3 completed shifts: In: - Out: 950 [Urine:950] Safety Concerns: { JOSIE Safety Concerns:409444946} Impairments/Disabilities: { JOSIE Impairments/Disabilities:586134965} Nutrition Therapy: Current Nutrition Therapy: { JOSIE Diet List:158516640} Routes of Feeding: {[facility] DME Other Feedings:546071265} Liquids: {Environmental Research Scientist liquid thickness:81570} Daily Fluid Restriction: {CHP DME Yes amt example:811716605} Last Modified Barium Swallow with Video (Video Swallowing Test): {Done Not Done Date:} Treatments at the Time of Hospital Discharge: Respiratory Treatments: Oxygen Therapy: {Therapy; copd oxygen:74702} Ventilator: { CC Vent List:359260744} Rehab Therapies: {THERAPEUTIC INTERVENTION:0466650633} Weight Bearing Status/Restrictions: { CC Weight Bearin} Other Medical Equipment (for information only, NOT a DME order): {EQUIPMENT:555118132} Other Treatments: Patient's personal belongings (please select all that are sent with patient): {CHP DME Belongings:700998515} RN SIGNATURE: {Esignature:626889145} CASE MANAGEMENT/SOCIAL WORK SECTION Inpatient Status Date: 06/05/2019 Readmission Risk Assessment Score: Readmission Risk Risk of Unplanned Readmission: 13 Discharging to Facility/ Agency Name: [facility] Address: Fax: Dialysis Facility (if applicable) Name: Address: Dialysis Schedule: Phone: Fax: Offset Proof Press Operator/Script Girl signature: at2:35 PM PHYSICIAN SECTION Prognosis: Good [...] PM EDT CLINICAL PHARMACY NOTE: MEDS TO [facility] Patient?: No Total # of Prescriptions Filled: 5 The following medications were delivered to the patient: Folic acid 1mg Clopidogrel 75mg Metoprolol tartrate 25mg Atorvastatin 80mg tamsulosin 0.4mg Total # of Interventions Completed: 0 Time Spent (min): 5 Additional Documentation: meds delivered to patients 10-19-19 at 2:08pm * Isela Hernandez RN - 06/09/2019 12:34 AM EDT 0034: Pt transported to room 538. All belongings packed and sent. Report called to [employer]. * Kosta Macedo PTA - 06/08/2019 2:39 PM EDT Physical Therapy Facility/Department: [address] Daily Treatment Note NAME: Eunice Marte [...] Type 2 Diabetes _x__ Be safe with [place] teaching sheet / [facility] Disposal of [...] EDT Speech Language Pathology Speech Language Pathology [facility] Cognitive Treatment Note Date: 06/08/2019 Patient s Name: Eunice Marte Diagnosis: Patient Active Problem List Diagnosis Code Cerebrovascular accident (CVA) ([facility]) I63.9 Acute left hemiparesis ([facility]) G81.94 History of ischemic left MCA stroke [...] (100%) withmod verbal cues. State the Category ([place]): Pt stated 1/10 (10%) independently, increased to [...] Treatment completed by: Completed by: Erin Andrews, Real Estate Portfolio Manager Clinician Cosigned By: Keysha Urena M.S.CCC/STRAIGHT LINE PRESS SETTER * Kosta Macedo PTA - 06/08/2019 10:31 AM EDT DATE: 06/08/2019 NAME: Eunice Marte : 1955 Patient not seen this date for Physical Therapy due to: [] Blood transfusion in progress [] Hemodialysis [] Patient Declined [] Spine Precautions [] Strict Bedrest [x] Surgery/ Procedure VL DUP LOWER EXTREMITY VENOUS BILATERAL (Order #[id number]) on 06/08/19 [] Testing [] Other [] [...] Name: Eunice Marte Patient : 1955 Room/Bed: [address] [place] [address] CHIEF COMPLAINT: Complaining of left facial droop, left-sided hemiparesis, slurred speech INTERVAL HISTORY: Admission (06/05/2019) Case of a 63 y.o. male patient with PMH of HTN, Diabetes, Stroke (4 years ago) who came to ED at [place] after having a presentation of acute onset of left- sided weakness that began around 5 PM on June 05, 2019. Patient refers that he was around his house around that area he was feeling weak but then noticed that he was slurring the speech, have a left-sided facial droop, left- sided hemiparesis. At the [place] NIH was calculated at 8 and decision was to give TPA. Patient was life flighted to [place] and was given hydralazine to control his [...] were no complications encountered. Cardiovascular Diseases Fellow [facility] CONSTITUTIONAL: negative for fatigue and malaise EYES: [...] Neurology Resident PGY-3 Neuro Critical Care Pager [phone] 06/08/2019 6:04 AM Associated attestation - Omer [...] signs taken. Pt sleepy, but easy to arouse.Coverstitch Machine Operator called to let her know procedure was done. 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 [] Testing [] Other [] [...] EDT Speech Language Pathology Speech Language Pathology [facility] Speech / Cognitive Treatment Note Date: 06/07/2019 Patient s Name: Eunice Marte Diagnosis: Patient Active Problem List Diagnosis Code Cerebrovascular accident (CVA) ([facility]) I63.9 Acute left hemiparesis ([facility]) G81.94 History of ischemic left MCA stroke Z86.73 History of diabetes mellitus Z86.39 History of hypertension Z86.79 Pain: denies Cognitive Treatment Treatment time: 9580-1098 Subjective: [] Alert [] Cooperative [] Confused [...] x2 verbal repetitions. Organization: State the Category, [place]: Pt provided three items and instructed to state the category. Pt completed activity with 60% (3/5) accuracy independently, increased to 100% (5/5) with mod-max verbal cues and 1-2x verbal repetitions. Add to the Category, [place]: Pt instructed to name three additional items [...] days. Treatment completed by: Frances Schulz M.S. CCC-STRAIGHT LINE PRESS SETTER * Spike Worthy, DO - 06/07/2019 8:02 AM EDT Daily Progress Note Neuro Critical Care Patient Name: Eunice Marte Patient : 1955 Room/Bed: 0515/0515-01 CHIEF COMPLAINT: Complaining of left facial droop, left-sided hemiparesis, slurred speech INTERVAL HISTORY: Admission (06/05/2019) Case of a 63 y.o. male patient with PMH of HTN, Diabetes, Stroke (4 years ago) who came to ED at [place] after having a presentation of acute onset of left- sided weakness that began around 5 PM on June 05, 2019. Patient refers that he was around his house around that area he was feeling weak but then noticed that he was slurring the speech, have a left-sided facial droop, left- sided hemiparesis. At the [place] NIH was calculated at 8 and decision was to give TPA. Patient was life flighted to [place] and was given hydralazine to control his [...] BP Temp Temp src Pulse Resp SpO2 10/17/19 0623 (!) 140/98 95 16 94 % [...] (!) 159/79 100 22 (!) 89 % 06/06/192117 (!) 168/84 101 18 (!) 89 % [...] Risk) RECENT LABS: DATA CBC: Recent Labs 06/05/19205306/06/1990006/07/196 WBC 8.0 7.3 7.4 HGB 15.6 16.4 [...] Neurology Resident PGY-2 Neuro Critical Care Pager [phone] 06/07/2019 8:02 AM Associated attestation - Omer Zambrano MD - 06/07/2019 4:13 PM EDT NCC 63-year-old patient admitted to neuro ICU status post IV TPA administration for acute left hemiparesis Hx of old left cerebral infarction DM, HTN, HLD MRI brain with diffusion restriction, acute stroke in R jeffrey ventricular and BG area CTA showed no acute LVO, multifocal SECONDS GRADER stenotic area seen Neuro deficits of left [...] Ambulation Assistance: Independent Transfer Assistance: Independent Active Side Gluer: Yes Mode of Transportation: Car Occupation: Retired [...] Management Training, Self-Care / ADL, Neuromuscular Re-education [facility] Inpatient Daily Activity Raw Score: 20 (06/06/19 1233) [facility] Inpatient ADL T-Scale Score : 42.03 (06/06/19 1233) ADL Inpatient CMS 0-100% Score: 38.32 (06/06/19 1233) ADL Inpatient CMS G-Code Modifier : CJ (06/06/19 123) Goals Short term goals Time Frame for [...] 06/06/2019 11:52 AM EDT Physical Therapy Facility/Department: [address] Initial Assessment NAME: Eunice Marte : 1955 Chief Complaint Patient presents with Cerebrovascular Accident The patient is a 63 y.o. male presented with acute onset of L sided weakness... He has had TIAs in the past, and states that this felt somewhat similar. 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 Date of Eval: [...] felt somewhat similar. He was brought to [facility] ED where NIH was calculated to be [...] address noted deficits. Education provided. Recommendations: Requires STRAIGHT LINE PRESS SETTER Intervention: Yes Duration/Frequency of Treatment: 3-5 x [...] 0911 Minutes 13 Completed by: Erin Andrews, Real Estate Portfolio Manager Clinician Cosigned By: Keysha Urena M.S.CCC/STRAIGHT LINE PRESS SETTER 06/06/2019 10:16 AM * Suellen Allen RN [...] Name: Eunice Marte Patient : 1955 Room[facility]Bed: [facility]01 CHIEF COMPLAINT: Complaining of left facial droop, left-sided hemiparesis, slurred speech INTERVAL HISTORY: Admission (06/05/2019) Case of a 63 y.o. male patient with PMH of HTN, Diabetes, Stroke (4 years ago) who came to ED at [place] after having a presentation of acute onset of left- sided weakness that began around 5 PM on June 05, 2019. Patient refers that he was around his house around that area he was feeling weak but then noticed that he was slurring the speech, have a left-sided facial droop, left- sided hemiparesis. At the [place] NIH was calculated at 8 and decision was to give TPA. Patient was life flighted to [place] and was given hydralazine to control his [...] PLT 201 221 BMP: Recent Labs 06/05/19204906/05/19205306/06/192 06/06/1901 NA -- 135 -- 137 K -- [...] Neurology Resident PGY-3 Neuro Critical Care Pager [phone] 06/06/2019 5:57 AM Associated attestation - Omer Zambrano MD - 06/06/2019 5:24 PM EDT Patient admitted overnight, staffed this am. H & P from overnight addended. M Sudheer Zambrano MD * Gonzales Camarena MD - 06/05/2019 8:42 PM EDT [address] [employer] Flight Physician Pt Name:Eunice Marte Birthdate 1955 Date of evaluation: 06/05/19 PCP: Adilson Salazar MD REASON FOR FLIGHT Patient was transported from [place] to [place] due to stroke. Flight was indicated for further care at [facility] HISTORY OF PRESENT ILLNESS Eunice Marte is a 63 y.o. male who acute onset left-sided upper and lower extremity weakness while walking in his yard. Symptoms occurred at approximately 5 PM this afternoon. Patient's is arrived to [place] emergency department where he was found to [...] CRITICAL CARE: None Destination Patient arrived at [place] in stable condition no significant changes in flight, all questions receiving staff had were answered. 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 [place] [address] [facility] (unrecognized sect ion and content) No Status Records FoundNo Status Records FoundNo Status Records FoundNo Status Records FoundNo Status Records FoundNo Status Records Found INFORMATION SOURCE (unrecogn ized section and content) DATE CREATED AUTHOR 06/19/2019 [facility] DATE CREATED AUTHOR AUTHOR'S ORGANIZ ATION 11/21/2022 [facility] DATE CREATED AUTHOR AUTHOR'S ORGANIZ ATION 03/29/2023 [facility] DATE CREATED AUTHOR AUTHOR'S ORGANIZ ATION 10/29/2023 [facility] DATE CREATED AUTHOR AUTHOR'S ORGANIZ ATION 05/04/2024 [facility] DATE CREATED AUTHOR AUTHOR'S ORGANIZ ATION 05/08/[address] [facility] Care Team (unrecognized sect ion and content) Team Status: Inactive Member Role Status Dates Adilson Salazar MD Primary Care Provider Active Milvia Palomo MD Attending Provider Active Team Status: Active Member Role Status Dates Adilson Salazar MD Primary Care Provider Active Vending Technician Relationship Specialty Start Date End Date Adilson Salazar MD PCP - General Family Medicine 05/25/23 Vending Technician Relationship Specialty Start Date End Date Adilson [...] BE BASED ON THE PRIMARY CLINICAL RECORDS. [employer] [facility]. provides no warranty or guarantee of the accuracy or completeness of information in this document.
[2024-05-09 10:55] LABS: Basophils Percent Auto 0.4 % (0.2-2.0); Eosinophils Absolute Auto 0.4 10^3/uL (0.0-0.7); Eosinophils Percent Auto 4.4 % (0.9-7.0); Hematocrit 39.9 % (42.0-54.0); Hemoglobin 13.2 g/dL (14.0-18.0); Immature Granulocytes Abs Auto 0.02 10^3/uL (0.00-0.03); Immature Granulocytes Pct Auto 0.2 % (0.0-0.5); Lymphocytes Absolute Auto 1.2 10^3/uL (1.2-3.8); Lymphocytes Percent Auto 13.9 % (20.5-60.0); Mean Corpuscular HGB Conc 33.1 g/dL (29.9-35.2); Mean Corpuscular Hemoglobin 28.5 pg (25.9-34.0); Mean Corpuscular Volume 86.2 fL (80.0-94.0); Monocytes Absolute Auto 0.6 10^3/uL (0.3-0.8); Monocytes Percent Auto 6.7 % (1.7-12.0); Neutrophils Absolute Auto 6.2 10^3/uL (1.4-6.5); Neutrophils Percent Auto 74.4 % (43.0-75.0); Platelet Count 179 10^3/uL (150-450); Red Blood Count 4.63 10^6/uL (4.70-6.10); Red Cell Distribution Width 14.8 % (11.0-15.0); White Blood Count 8.3 10^3/uL (4.0-11.0)
[2024-05-09] MEDS: KETOROLAC TROMETHAMINE 30 MG/ML VIAL 15 MG IVP (10:58)
[2024-05-09] MEDS: 0.9 % SODIUM CHLORIDE 500 ML IV (10:58)
[2024-05-09 11:07] LABS: Influenza Virus A Antigen Negative; Influenza Virus B Antigen Negative; Internal Control Within Normal Limits; SARS-CoV-2 Ag NEGATIVE (NEGATIVE)
[2024-05-09 11:10] LABS: Lactate/Lactic Acid 1.5 mmol/L (0.4-2.0)
[2024-05-09 11:16] LABS: Alanine Aminotransferase 53 U/L (16-63); Albumin Globulin Ratio 0.9; Albumin Level 3.6 g/dL (3.4-5.0); Alkaline Phosphatase 118 U/L (46-116); Anion Gap 13.8; Aspartate Amino Transferase 32 U/L (15-37); Calcium 9.3 mg/dL (8.5-10.1); Carbon Dioxide 26.8 mmol/L (21.0-32.0); Chloride 103 mmol/L (98-107); Estimated GFR (African America >60 (>=60); Estimated GFR (Non-African Ame >60 (>=60); Glucose 223 mg/dL (74-106); Potassium 3.6 mmol/L (3.5-5.1); Sodium 140 mmol/L (136-145); Total Protein 7.6 g/dL (6.4-8.2)
[2024-05-09 11:35] LABS: Troponin I High Sensitivity 338.3 pg/mL (4.0-76.1)
--- NOTE | 2024-05-09 11:53 | CT_ITS ---
The [address] [address] Patient Name: EUNICE FREEMAN MRN: [id number] date: 1955 Sex: M Assigned Patient Location: ER Current Patient Location: ER Accession/Order Number: [id number] Exam Date: 05/09/2024 12:10 Report Date: 05/09/2024 12:45 At the request of: JAVAN PATEL Procedure: CT angio chest EXAM: CT angio chest HISTORY: Shortness of breath COMPARISON: None. TECHNIQUE: Following intravenous administration of 100 mL of Omnipaque 350, axial soft tissue and lung windows were with coronal and sagittal reformats. 3-D MIPS reformats were created and reviewed. CT dose reduction technique was used including Automated Exposure Control. Findings: The heart is nonenlarged. There are coronary artery calcifications. No pericardial effusion. The thoracic aorta is normal caliber with mild atherosclerotic disease. There is adequate opacification of the pulmonary arteries. There is a right lower lobe posterior segmental embolism. The RV to LV ratio remains. The central airways are patent. No pneumothorax. No pleural effusion. Small region of consolidation within the right lower lobe. Minimal lingular and left lower lobe atelectasis or scarring. No enlarged mediastinal, hilar, axillary or supraclavicular lymph nodes. There is fatty infiltration of the liver. Small hiatal hernia. Bilateral renal cysts. No aggressive sclerotic or lytic osseous lesions. Mild multilevel degenerative thoracic spondylosis. CT/CT angio chest IMPRESSION: 1. Segmental right lower lobe pulmonary embolism. 2. Small region of consolidation within the right lower lobe concerning for pneumonia. The results of study were discussed with Dr. Patel at 1245 on 05/09/2024. Electronically authenticated by: EUNICE CASTRO Date: 05/09/2024 12:45
[2024-05-09] MEDS: IPRATROPIUM/ALBUTEROL SULFATE 3 ML AMPUL.NEB IH ×3 (12:01→22:43)
--- NOTE | 2024-05-09 13:22 | P.HP_ITS ---
HPI H&P: HPI History of Present Illness Chief complaint: COUGH, SOB, CHEST PAIN/PNEUMONIA/PE/ELEVATED TRAP Narrative: Patient is a 68 y.o black male with past medical history of prostate cancer, Insulin dependent type 2 diabetes, Hypertension, Seasonal allergies, Prior CVA, sleep apnea, who presented to the ER today with coughing, shortness of breath and chest pain. Patient has undergone chemotherapy for prostate cancer but finished 5 months ago. Patient reports shortness of breath and chest pain when coughing. No sick contacts, fevers and chills. No prior history of PE or DVT's. Patient reports compliance with his medications. ER findings: Elevated Trop 338, EKG shows no ST changes, CXR-normal, Chest CTA showed acute PE in the Right lower segment along with RLL consolidation concerning for Pneumonia. Patient was saturating 97% on RA, pulse 76. Patient admitted for RLL pneumonia and Acute PE. Opioid HPI Opioid Management Most Recent Pain and Opioid Data: Last Pain Scale 7 05/09/24 10:58 Last MAR Pain Assessment 05/09/24 10:58 Review of Systems ROS Narrative ROS: a complete review of systems were reviewed with patient and are positive as below or listed in History of Chief Complaint. General: fever, and chills, no night sweats Head: no headache, trauma, visual changes, nausea or vomiting Skin: no reported rashes, itching or sores Eyes: no blurriness of vision Ears: no reported hearing loss, vertigo, earache, or tinnitus Throat: no sore throat, hoarseness, swelling of neck, or tongue pain Heart: chest pain Lungs: shortness of breath and cough GI: no diarrhea or vomiting/nausea Urinary: no urinary urgency, frequency or pain Neuro: no numbness or tingling HEM: no bleeding issues or bruising ENDO: no thyroid problems Psych: no anxiety or depression [facility] Medical History (Updated 05/09/24 @ 15:00 by Joan Trinidad RN) History of non-ST elevation myocardial infarction (NSTEMI) ?I25.2 - Old myocardial infarction (ICD-10) Multi-infarct dementia ?F01.50 - Vascular dementia, unspecified severity, without behavioral disturbance, psychotic disturbance, mood disturbance, and anxiety (ICD-10) Cerebrovascular disease ?I67.9 - Cerebrovascular disease, unspecified (ICD-10) Type 2 diabetes mellitus with hyperglycemia ?E11.65 - Type 2 diabetes mellitus with hyperglycemia (ICD-10) Implantable loop recorder present ?Z95.818 - Presence of other cardiac implants and grafts (ICD-10) Sleep apnea treated with continuous positive airway pressure (CPAP) ?G47.30 - Sleep apnea, unspecified (ICD-10) TIA (transient ischemic attack) ?G45.9 - Transient cerebral ischemic attack, unspecified (ICD-10) High cholesterol ?E78.00 - Pure hypercholesterolemia, unspecified (ICD-10) Diabetes ?E11.9 - Type 2 diabetes mellitus without complications (ICD-10) Hypertension ?I10 - Essential (primary) hypertension (ICD-10) Prostate CA ?C61 - Malignant neoplasm of prostate (ICD-10) Surgical History History of shoulder surgery ?Z98.890 - Other specified postprocedural states (ICD-10) H/O left knee surgery ?Z98.890 - Other specified postprocedural states (ICD-10) History of back surgery ?Z98.890 - Other specified postprocedural states (ICD-10) Family History Mother Family history of diabetes mellitus Family history of myocardial infarction Sister Family history of hypertension Social History (Updated 05/09/24 @ 15:00 by Joan Trinidad RN) Smoking status: Former smoker Highest level of school completed/degree received: decline to answer Little interest or pleasure in doing things: not at all Feeling down, depressed, or hopeless: not at all Do you think of yourself as: decline to answer Gender Identity: decline to answer Meds Home Medications and Allergies Home Medications ?Medication ?Instructions ?Recorded ?Confirmed ?Type amlodipine 10 mg tablet 10 mg PO DAILY 07/16/23 05/09/24 History cholecalciferol (vitamin D3) 50 50 mcg PO DAILY 07/16/23 05/09/24 History mcg (2,000 unit) tablet ezetimibe 10 mg tablet 10 mg PO QAM 07/16/23 05/09/24 History glipizide 10 mg tablet 10 mg PO BIDWM 07/16/23 05/09/24 History lisinopril 20 1 tab PO BID 07/16/23 05/09/24 History mg-hydrochlorothiazide 12.5 mg tablet metformin 500 mg tablet,extended 500 mg PO BID 07/16/23 05/09/24 History release 24 hr metoprolol succinate 50 mg 50 mg PO QAM 07/16/23 05/09/24 History tablet,extended release 24 hr montelukast 10 mg tablet 10 mg PO .QHS 07/16/23 05/09/24 History pioglitazone 30 mg tablet 30 mg PO DAILY 07/16/23 05/09/24 History tamsulosin 0.4 mg capsule 0.4 mg PO DAILY 07/16/23 05/09/24 History aspirin 81 mg capsule 81 mg PO DAILY 03/12/24 05/09/24 History insulin glargine-yfgn 100 unit/mL 40 unit subcut .QHS 03/12/24 05/09/24 History (3 mL) subcutaneous pen (Semglee (insulin glargine-yfgn) Pen) calcium carbonate 600 mg-vitamin 1 tab PO DAILY 05/09/24 05/09/24 History D3 10 mcg (400 unit) tablet Allergies Allergy/AdvReac Type Severity Reaction Status Date / Time Penicillins Allergy Severe Rash Verified 03/12/24 22:12 Exam Narrative Exam Narrative: General: Patient is alert, and oriented to person, place and time with normal affect, proper hygiene, slight shortness of breath with conversing Skin: no visible rashes, or ulcers Head: atraumatic, acephalic Eyes: PERRLA, no nystagmus present, conjunctiva clear, no scleral icterus Ears: normal gross auditory acuity Nose: symmetric, no discharge, no maxillary or frontal sinus tenderness Heart: Normal rate and rhythm, no murmurs/rubs/gallops Lungs: audible wheezes, no crackles Abdomen: Normal audible bowel sounds, no distension, No palpable masses, no organomegaly, no rebound/guarding/ or rigidity Musculoskeletal:no swelling bilateral lower extremities Neuro: CN II-X grossly intact Constitutional Vital Signs, click to edit/add: Last Vital Signs Temp 99.0 F 05/09/24 10:19 Pulse 76 05/09/24 12:00 Resp 20 05/09/24 12:00 BP 186/88 H 05/09/24 10:19 Pulse Ox 97 05/09/24 12:00 O2 Del Method Room Air 05/09/24 10:19 Results Labs Labs: Short CBC 05/09/24 Range/Units 10:30 WBC 8.3 (4.0-11.0) 10^3/uL Hgb 13.2 L (14.0-18.0) g/dL Hct 39.9 L (42.0-54.0) % Plt Count 179 (150-450) 10^3/uL BMP 05/09/24 10:30 Sodium 140 Potassium 3.6 Chloride 103 Carbon Dioxide 26.8 BUN 8.0 Creatinine 1.00 Glucose 223 H Calcium 9.3 Liver Function 05/09/24 Range/Units 10:30 Total Bilirubin 1.0 (0.2-1.0) mg/dL AST 32 (15-37) U/L ALT 53 (16-63) U/L Alkaline Phosphatase 118 H (46-116) U/L Albumin 3.6 (3.4-5.0) g/dL Assessment and Plan Assessment and Plan (1) Acute pulmonary embolism: Assessment and Plan: continue to monitor patient pulse ox, currently doing well on room air. Will treat with therapeutic lovenox at 1mg/kg SQ BID and will transition to Eliquis tomorrow at 10mg BID. Renal function normal. PE seen on CTA in the right lower segmental artery. Qualifiers: Acute cor pulmonale presence: without acute cor pulmonale Pulmonary embolism type: other Qualified Code(s): I26.99 - Other pulmonary embolism without acute cor pulmonale (2) Non-ST elevation IN (NSTEMI): Assessment and Plan: elevated Trop with no EKG changes, most likely Type 2 NSTEMI from heart strain from acute PE. Continue statin and aspirin, Treat PE. check lipids, tsh, placed on telemetry. Control BP. continue statin. Echocardiogram today. (3) Right lower lobe pneumonia: Assessment and Plan: start Levaquin 750mg IV daily, duonebs scheduled and PRN albuterol, OPEP therapy. cough medication as needed. Qualifiers: Pneumonia type: due to unspecified organism Qualified Code(s): J18.9 - Pneumonia, unspecified organism (4) Type 2 diabetes mellitus with hyperglycemia: Assessment and Plan: continue long acting insulin, diabetic diet, accuchecks qachs, SSI Qualifiers: Diabetes mellitus detention insulin use: with detention use Qualified Code(s): E11.65 - Type 2 diabetes mellitus with hyperglycemia; Z79.4 - MCFP (current) use of insulin (5) Sleep apnea treated with continuous positive airway pressure (CPAP): Assessment and Plan: may wear home CPAP (6) High cholesterol: Assessment and Plan: recheck lipids in the morning, continue statin (7) Prostate CA: (8) Hypertension: Assessment and Plan: continue home meds Qualifiers: Hypertension type: secondary to endocrine disorders Qualified Code(s): I15.2 - Hypertension secondary to endocrine disorders Plan patient is a full code Start Lovenox Patient is inpatient status and is expected to cross 2 midnights
[2024-05-09] MEDS: ENOXAPARIN SODIUM 100 MG/ML SYRINGE SUBQ (13:37)
[2024-05-09 13:45] LABS: Troponin I High Sensitivity 352.7 pg/mL (4.0-76.1)
[2024-05-09] MEDS: LEVOFLOXACIN IN DEXTROSE 5 % 750 MG/150 ML PREMIX 100 MG IV (14:21)
[2024-05-09 14:58] LABS: Bilirubin Urine SMALL (NEGATIVE); Blood Urine SMALL (NEGATIVE); Clarity Urine CLEAR (CLEAR); Color Urine DK. YELLOW (YELLOW); Glucose Urine UA 100 mg/dL (NEGATIVE); Ketones Urine 15 mg/dL (NEGATIVE); Leukocyte Esterase Urine NEGATIVE (NEGATIVE); Nitrite Urine NEGATIVE (NEGATIVE); Protein Urine 100 mg/dL (NEG/TRACE); Specific Gravity Urine >=1.030 (1.005-1.025); Urine Microscopic Indicated YES
[2024-05-09 15:16] LABS: Bacteria Urine TRACE #/HPF (NONE SEEN); Crystals Seen? None Seen #/HPF (None Seen); Mucus Urine MODERATE (NONE SEEN); Squamous Epithelial Cell Urine FEW #/LPF (NONE/RARE); Urine Culture Indicated NO; WBC Urine 0-2 #/HPF (NONE SEEN)
[2024-05-09 15:17] LABS: Cast Seen? SEEN #/LPF (NONE SEEN); Hyaline Casts Urine RARE
[2024-05-09] MEDS: AMLODIPINE BESYLATE 5 MG TABLET 10 MG PO (15:32)
[2024-05-09] MEDS: METOPROLOL SUCCINATE 50 MG TAB.ER.24H PO (15:32)
[2024-05-09] MEDS: LACTATED RINGER'S SOLUTION 1,000 ML 100 ML IV (16:05)
[2024-05-09 16:10] LABS: Glucometer 205 mg/dL (74-106)
[2024-05-09] MEDS: INSULIN ASPART 300 UNIT/3 ML PEN SUBQ ×2 (16:10→21:33)
--- NOTE | 2024-05-09 17:06 | US_ITS ---
The [address] [address] Patient Name: EUNICE FREEMAN MRN: [id number] date: 1955 Sex: M Assigned Patient Location: [place] Current Patient Location: [place] Accession/Order Number: [id number] Exam Date: 05/09/2024 20:50 Report Date: 05/09/2024 22:33 At the request of: TREY GAN Procedure: US venous doppler LE BI US venous doppler LE BI, 05/09/2024 8:50 PM EDT INDICATION: Edema COMPARISON: There is a previous left lower extremity venous duplex dated 07/30/2019 available for correlation. No definitive right lower extremity venous duplex for comparison. FINDINGS: Bilateral lower extremity Doppler The visualized veins of the venous system of each lower extremity are within normal limits with regard to spontaneous flow, phasic flow, augmentation and compression. No intraluminal thrombus formation is identified. No superficial venous thrombus is present. US/US venous doppler LE BI IMPRESSION: No evidence of acute deep or superficial venous thrombosis in either lower extremity. Electronically authenticated by: SHERRI MCKEON Date: 05/09/2024 22:33
--- NOTE | 2024-05-09 17:36 | P.CACN_ITS ---
History of Present Illness History of Present Illness Consult date: 05/09/24 Requesting physician: Rani Marquez Consult reason: chest pain and known to you Chief complaint: COUGH, SOB, CHEST PAIN/PNEUMONIA/PE/ELEVATED TRAP Narrative: Patient is a 68 y/o M with known PMHx of HFrEF, CAD, HTN, asthma, DVT, HLD, BPH 2/2 prostate CA s/p radiation therapy, CKD III, T2DM, depression, GERD, left MCA CVA in 2014 who presented to [facility] with c/o chest pain and SOB. He had a CTA chest which found him to have an acute right lower lobe small subsegmental PE and PNA. He was started on subQ lovenox today and hospitalist plans to convert to ELiquis 10mg BID tomorrow. Cardiology was consulted due to patients recent admission last month which he was noted to have an NSTEMI. Reviewed cath report which noted mild to moderate diffuse CAD and recommended medical management. Patient seen and examined at bedside early this evening. He reports chest pain with coughing but denies any at rest or with exertion. He reports EASTON but no dyspnea at rest. He remains on room air. He notes leg swelling, mild, which is not new for him. Denies orthopnea, PND, dizziness/LH, palpitations. HR is controlled. BP is elevated. Discussed with hospitalist, pt missed home medications and those were resumed this evening. Review of Systems ROS Status of ROS 10 or more systems reviewed and unremark able except as noted in history and below Cardiovascular Reports: chest pain, swelling of feet/ankles and shortness of breath with exertion [facility] Medical History (Updated 05/09/24 @ 15:00 by Joan Trinidad RN) History of non-ST elevation myocardial infarction (NSTEMI) ?I25.2 - Old myocardial infarction (ICD-10) Multi-infarct dementia ?F01.50 - Vascular dementia, unspecified severity, without behavioral disturbance, psychotic disturbance, mood disturbance, and anxiety (ICD-10) Cerebrovascular disease ?I67.9 - Cerebrovascular disease, unspecified (ICD-10) Type 2 diabetes mellitus with hyperglycemia ?E11.65 - Type 2 diabetes mellitus with hyperglycemia (ICD-10) Implantable loop recorder present ?Z95.818 - Presence of other cardiac implants and grafts (ICD-10) Sleep apnea treated with continuous positive airway pressure (CPAP) ?G47.30 - Sleep apnea, unspecified (ICD-10) TIA (transient ischemic attack) ?G45.9 - Transient cerebral ischemic attack, unspecified (ICD-10) High cholesterol ?E78.00 - Pure hypercholesterolemia, unspecified (ICD-10) Diabetes ?E11.9 - Type 2 diabetes mellitus without complications (ICD-10) Hypertension ?I10 - Essential (primary) hypertension (ICD-10) Prostate CA ?C61 - Malignant neoplasm of prostate (ICD-10) Surgical History History of shoulder surgery ?Z98.890 - Other specified postprocedural states (ICD-10) H/O left knee surgery ?Z98.890 - Other specified postprocedural states (ICD-10) History of back surgery ?Z98.890 - Other specified postprocedural states (ICD-10) Family History Mother Family history of diabetes mellitus Family history of myocardial infarction Sister Family history of hypertension Social History (Updated 05/09/24 @ 15:00 by Joan Trinidad RN) Smoking status: Former smoker Highest level of school completed/degree received: decline to answer Little interest or pleasure in doing things: not at all Feeling down, depressed, or hopeless: not at all Do you think of yourself as: decline to answer Gender Identity: decline to answer Meds Home Medications and Allergies Home Medications ?Medication ?Instructions ?Recorded ?Confirmed ?Type amlodipine 10 mg tablet 10 mg PO DAILY 07/16/23 05/09/24 History cholecalciferol (vitamin D3) 50 50 mcg PO DAILY 07/16/23 05/09/24 History mcg (2,000 unit) tablet ezetimibe 10 mg tablet 10 mg PO QAM 07/16/23 05/09/24 History glipizide 10 mg tablet 10 mg PO BIDWM 07/16/23 05/09/24 History lisinopril 20 1 tab PO BID 07/16/23 05/09/24 History mg-hydrochlorothiazide 12.5 mg tablet metformin 500 mg tablet,extended 500 mg PO BID 07/16/23 05/09/24 History release 24 hr metoprolol succinate 50 mg 50 mg PO QAM 07/16/23 05/09/24 History tablet,extended release 24 hr montelukast 10 mg tablet 10 mg PO .QHS 07/16/23 05/09/24 History pioglitazone 30 mg tablet 30 mg PO DAILY 07/16/23 05/09/24 History tamsulosin 0.4 mg capsule 0.4 mg PO DAILY 07/16/23 05/09/24 History aspirin 81 mg capsule 81 mg PO DAILY 03/12/24 05/09/24 History insulin glargine-yfgn 100 unit/mL 40 unit subcut .QHS 03/12/24 05/09/24 History (3 mL) subcutaneous pen (Semglee (insulin glargine-yfgn) Pen) calcium carbonate 600 mg-vitamin 1 tab PO DAILY 05/09/24 05/09/24 History D3 10 mcg (400 unit) tablet evolocumab 140 mg/mL subcutaneous 140 mg subcut .QD 05/09/24 05/09/24 History pen injector (Repjessenia Diazick) rosuvastatin 40 mg tablet 40 mg PO .QHS 05/09/24 05/09/24 History Allergies Allergy/AdvReac Type Severity Reaction Status Date / Time Penicillins Allergy Severe Rash Verified 03/12/24 22:12 Exam Constitutional Vital Signs, click to edit/add: Last Vital Signs Temp 98.2 F 05/09/24 14:50 Pulse 67 05/09/24 15:48 Resp 22 H 05/09/24 14:50 BP 177/80 H 05/09/24 15:32 Pulse Ox 93 L 05/09/24 14:50 O2 Del Method Room Air 05/09/24 14:50 Common normals: no apparent distress and alert Orientation/consciousness: Yes oriented to person, Yes oriented to place and Yes oriented to time HENMT Common normals: normocephalic and head/scalp atraumatic Eye Common normals: EOMs intact bilaterally and conjunctivae normal Neck & C-Spine Common normals: full ROM, supple and no JVD Respiratory Common normals: no use of accessory muscles Auscultation: wheezes Cardio Common normals: no JVD, regular rate, regular rhythm, no gallops and no murmurs GI Common normals: Normal to inspection, nondistended, normoactive bowel sounds present Extremity Common normals: full ROM General: edema (trace edema) Neuro Common normals: CN's II-XII intact bilaterally Results Labs and Meds Lab results: Cardiac Enzymes 05/09/24 Range/Units 10:30 AST 32 (15-37) U/L CBC 05/09/24 Range/Units 10:30 WBC 8.3 (4.0-11.0) 10^3/uL RBC 4.63 L (4.70-6.10) 10^6/uL Hgb 13.2 L (14.0-18.0) g/dL Hct 39.9 L (42.0-54.0) % Plt Count 179 (150-450) 10^3/uL Neut # (Auto) 6.2 (1.4-6.5) 10^3/uL Lymph # (Auto) 1.2 (1.2-3.8) 10^3/uL Starr # (Auto) 0.6 (0.3-0.8) 10^3/uL Eos # (Auto) 0.4 (0.0-0.7) 10^3/uL Baso # (Auto) 0.0 (0.0-0.1) 10^3/uL Comprehensive Metabolic Panel 05/09/24 Range/Units 10:30 Sodium 140 (136-145) mmol/L Potassium 3.6 (3.5-5.1) mmol/L Chloride 103 (98-107) mmol/L Carbon Dioxide 26.8 (21.0-32.0) mmol/L BUN 8.0 (7.0-18.0) mg/dL Creatinine 1.00 (0.70-1.30) mg/dL Glucose 223 H (74-106) mg/dL Calcium 9.3 (8.5-10.1) mg/dL AST 32 (15-37) U/L ALT 53 (16-63) U/L Alkaline Phosphatase 118 H (46-116) U/L Total Protein 7.6 (6.4-8.2) g/dL Albumin 3.6 (3.4-5.0) g/dL Intake and Output 05/09/24 05/09/24 05/09/24 07:59 15:59 23:59 Intake Total 500 / 650 150 / 650 Balance 500 / 650 150 / 650 Intake: IV 500 / 650 150 / 650 0.9 % Sodium Chloride 500 ml @ 500 / 500 500 mls/hr IV .Q1H ONE Rx#: [id number] Levofloxacin in Dextrose 5 % 150 / 150 750 mg In 150 ml @ 100 mls/hr IV Q24H KALANI Rx#:[id number] Other: Weight 110.7 kg Patient Weight 05/10/24 07:59 Weight 110.7 kg Imaging and Cardiology Stress echo: pending Cardiac cath: report reviewed Assessment and Plan Assessment and Plan (1) Acute pulmonary embolism: Qualifiers: Pulmonary embolism type: other Acute cor pulmonale presence: without acute cor pulmonale Qualified Code(s): I26.99 - Other pulmonary embolism without acute cor pulmonale (2) Non-ST elevation NM (NSTEMI): (3) Right lower lobe pneumonia: Qualifiers: Pneumonia type: due to unspecified organism Qualified Code(s): J18.9 - Pneumonia, unspecified organism (4) Type 2 diabetes mellitus with hyperglycemia: Qualifiers: 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 He remains on room air, non labored breathing. -Of note, patient was admitted for an NSTEMI last month and had a coronary angiogram 03/14/24 which showed mild to moderate diffuse CAD, medical management recommended. -Will check a lactic acid. NTproBNP was okay. HSTroponin was elevated in the setting of PE. Trend until it comes down. -Will order for BLE venous duplex. -Chest CTA does not appear to show RV strain. ECHO pending to confirm RV/LV ratio. -If remaining testing okay, no thrombectomy intervention needed. -He will need to be on anticoagulation. Hospitalist currently ordered for therap eutic lovenox today with plans to transition to ELiquis tomorrow 10mg BID. He will need Eliquis 10mg BID x7 days then 5mg BID. -COntinue ASA, statin, BB for CAD management and given recent NSTEMI #HTN, uncontrolled -Pt had missed his home medications which have since been resumed. -If BP remains elevated, recommend switching to coreg and uptitrate as needed. #HLD -On repatha, rosuvastatin, zetia -Working with outpatient pharmacy to optimize medications Thank you for the consult. Please call if any questions or concerns. Ludmila Wall APRN-LOTTERY CLERK [facility] Cardiovascular Medicine
[2024-05-09 17:41] LABS: Lactate/Lactic Acid 1.2 mmol/L (0.4-2.0)
[2024-05-09 18:04] LABS: Troponin I High Sensitivity 316.7 pg/mL (4.0-76.1)
[2024-05-09] MEDS: MONTELUKAST SODIUM 10 MG TABLET PO (21:33)
[2024-05-09] MEDS: LISINOPRIL/HYDROCHLOROTHIAZIDE 20-12.5 MG TABLET 1 TAB PO (21:33)
[2024-05-09] MEDS: ATORVASTATIN CALCIUM 40 MG TABLET PO (21:33)
[2024-05-09 21:34] LABS: Glucometer 217 mg/dL (74-106)
[2024-05-09] MEDS: [UNRECOGNIZED DRUG - REMARK] 40 EACH SUBQ (21:34)
[2024-05-10] VITALS (21 sets, daily range): BP systolic 137–176; BP diastolic 70–98; PULSE 63–86; TEMP 36.4–36.9; O2SAT 92–98
[2024-05-10] MEDS: LACTATED RINGER'S SOLUTION 1,000 ML 100 ML IV ×3 (01:09→21:07)
[2024-05-10] MEDS: ENOXAPARIN SODIUM 100 MG/ML SYRINGE SUBQ (01:09)
[2024-05-10 01:51] LABS: Troponin I High Sensitivity 451.3 pg/mL (4.0-76.1)
[2024-05-10] MEDS: IPRATROPIUM/ALBUTEROL SULFATE 3 ML AMPUL.NEB IH ×4 (05:15→23:12)
[2024-05-10 06:15] LABS: Basophils Percent Auto 0.3 % (0.2-2.0); Eosinophils Absolute Auto 0.5 10^3/uL (0.0-0.7); Eosinophils Percent Auto 7.6 % (0.9-7.0); Hematocrit 35.5 % (42.0-54.0); Hemoglobin 11.9 g/dL (14.0-18.0); Immature Granulocytes Abs Auto 0.02 10^3/uL (0.00-0.03); Immature Granulocytes Pct Auto 0.3 % (0.0-0.5); Lymphocytes Absolute Auto 1.7 10^3/uL (1.2-3.8); Lymphocytes Percent Auto 26.4 % (20.5-60.0); Mean Corpuscular HGB Conc 33.5 g/dL (29.9-35.2); Mean Corpuscular Volume 86.4 fL (80.0-94.0); Mean Platelet Volume 10.7 fL (9.5-13.5); Monocytes Absolute Auto 0.8 10^3/uL (0.3-0.8); Monocytes Percent Auto 13.4 % (1.7-12.0); Neutrophils Absolute Auto 3.3 10^3/uL (1.4-6.5); Platelet Count 146 10^3/uL (150-450); Red Blood Count 4.11 10^6/uL (4.70-6.10); Red Cell Distribution Width 14.6 % (11.0-15.0); White Blood Count 6.3 10^3/uL (4.0-11.0)
--- NOTE | 2024-05-10 06:44 | CA_ITS ---
Patient Name: EUNICE FREEMAN MR#: [id number] : 1955 Exam Date: 05/10/2024 Ordering Doctor: CHRIS HALE . ECHOCARDIOGRAM REPORT PROCEDURE: CA ECHO DOPPLER COMPLETE INDICATIONS: elevated troponin, Acute PE COMPARISON: None. DESCRIPTION: COMPLETE ECHOCARDIOGRAM Real-time transthoracic echocardiography with 2D, M-mode, spectral and color flow Doppler performed. QUALITY: Technical quality was good. LEFT VENTRICLE: Normal chamber size. Moderate concentric left ventricular hypertrophy. LV EF: Global left ventricular systolic function is normal. Calculated left ventricular ejection fraction is 63%. No significant wall motion abnormalities. DIASTOLIC: Unable to assess diastolic function. ATRIAL SEPTUM: Inadequately seen. LEFT ATRIUM: Normal chamber size. RIGHT ATRIUM: Normal chamber size. RIGHT VENTRICLE: Normal chamber size. Normal right ventricular systolic function. TRICUSPID VALVE: Normal mobility and thickness. No stenosis with trivial regurgitation. Unable to assess right-sided pressures due to lack of measurable tricuspid regurgitation. MITRAL VALVE: Normal mobility and thickness. No evidence of mitral valve stenosis. There is no mitral annular calcification. No mitral regurgitation. AORTIC VALVE: Normal trileaflet appearance. No visible sclerosis. Normal leaflet mobility. No evidence of aortic valve stenosis. No aortic regurgitation. AORTIC ROOT: Normal diameter and appearance. PULMONIC VALVE: Normal thickness and mobility. No stenosis. Trivial regurgitation. PERICARDIUM: No evidence of pericardial effusion. CONCLUSION: 1. Global left ventricular systolic function is normal; visually estimated ejection fraction is 55 to 60% 2. Normal right ventricular size and systolic function 3. Moderate left ventricular hypertrophy 4. The left atrium is normal in size 5. No significant valvular abnormalities Adult Echocardiography Procedure Report Left Ventricle LVEDD (3.7 - 5.6 cm): 4.15 cm LVESD (2.2 - 4.0 cm): 3.03 cm LVIVS thickness (0.6 - 1.2 cm): 1.44 cm LVPW thickness (0.5 - 1.0 cm): 1.37 cm e': 0.08 m/s E - e': 6.97 LVOT Max Gradient: 2.48 mm[Hg] LVOT Area (cm2): 0.79 m/s Peak Velocity (LVOT): 0.79 m/s Mean Velocity (LVOT): 0.58 m/s LVOT Diameter 2.03 cm Left Ventricular Ejection Fraction: 63.11 % Left Atrium LA Volume Index (2D A2C): 28.57 ml/m2 Left Atrium Systolic Dimension: 3.52 cm Mitral Valve MV E to A Ratio: 0.70 Mitral Valve A-Wave Peak Velocity: 0.79 m/s Mitral Valve E-Wave Peak Velocity: 0.55 m/s Right Ventricle RV Internal Diastolic Dimension: 3.51 cm Aorta AO Root Diam: 3.83 cm Ascending Ao Diam: 3.16 cm Aortic Valve AoV Area (Peak Joaquin): 2.16 cm2, 2.16 cm2 AoV Area (VTI): 2.23 cm2, 2.23 cm2 Peak Velocity(Antegrade Flow): 1.18 m/s Peak Gradient(Antegrade Flow): 5.58 mm[Hg] Mean Velocity(Antegrade Flow): 0.81 m/s Mean Gradient(Antegrade Flow): 2.94 mm[Hg] Velocity Time Integral: 28.71 cm Tricuspid Valve Peak Velocity (Regurgitant Flow): 1.60 m/s Pulmonic Valve Mean Gradient: 3.30 mm[Hg], 2.36 mm[Hg] Mean Velocity: 0.87 m/s, 0.72 m/s Peak Velocity: 1.11 m/s Peak Gradient: 5.58 mm[Hg], 4.25 mm[Hg] Right Atrium Right Atrium Systolic Pressure: 51.35 ml, 51.35 ml Dictated by: Codie Garrett M.D. on 05/10/2024 at 15:12 Approved by: Codie Garrett M.D. on 05/10/2024 at 16:00
[2024-05-10 06:50] LABS: Alanine Aminotransferase 48 U/L (16-63); Albumin Globulin Ratio 0.9; Albumin Level 3.1 g/dL (3.4-5.0); Alkaline Phosphatase 98 U/L (46-116); Anion Gap 10.4; Aspartate Amino Transferase 37 U/L (15-37); Bilirubin Total 0.7 mg/dL (0.2-1.0); Chloride 102 mmol/L (98-107); Chol HDL Ratio 2.7; Cholesterol 134 mg/dL (<=200); Estimated GFR (African America >60 (>=60); Estimated GFR (Non-African Ame >60 (>=60); Globulin 3.5 g/dL; Glucose 139 mg/dL (74-106); HDL Cholesterol 49 mg/dL (40-60); LDL Cholesterol Calculated 68.4 mg/dL; Potassium 3.4 mmol/L (3.5-5.1); Sodium 139 mmol/L (136-145); Thyroid Stimulating Hormone 1.557 uIU/mL (0.358-3.740); Total Protein 6.6 g/dL (6.4-8.2); Triglycerides 83 mg/dL (<=150); VLDL CHOLESTEROL 16.6 mg/dL
[2024-05-10 06:59] LABS: Troponin I High Sensitivity 498.2 pg/mL (4.0-76.1)
[2024-05-10 07:30] LABS: Glucometer 141 mg/dL (74-106)
--- NOTE | 2024-05-10 08:21 | PM.PN ---
Progress Note: Subjective Subjective Interval history: Patient is resting comfortably in bed this morning. Oxygen was placed on him yesterday as he was feeling short of breath at 90%. Discussed trying walk test today to see how he would do. He says he is still coughing. No chest pain. No fevers but has been having chills and night sweats since he's been sick. Exam Narrative Exam Narrative: General: Patient is alert, and oriented to person, place and time with normal affect, proper hygiene, slight shortness of breath with conversing Skin: no visible rashes, or ulcers Head: atraumatic, acephalic Eyes: PERRLA, no nystagmus present, conjunctiva clear, no scleral icterus Ears: normal gross auditory acuity Nose: symmetric, no discharge, no maxillary or frontal sinus tenderness Heart: Normal rate and rhythm, no murmurs/rubs/gallops Lungs: audible wheezes, no crackles Abdomen: Normal audible bowel sounds, no distension, No palpable masses, no organomegaly, no rebound/guarding/ or rigidity Musculoskeletal:no swelling bilateral lower extremities Neuro: CN II-X grossly intact Constitutional Vital Signs, click to edit/add: Last Vital Signs Temp 98.4 F 05/10/24 04:00 Pulse 63 05/10/24 08:00 Resp 18 05/10/24 05:15 BP 170/80 H 05/10/24 04:00 Pulse Ox 96 05/10/24 05:15 O2 Del Method Nasal Cannula 05/10/24 05:15 O2 Flow Rate 2 05/10/24 05:15 Progress Note: Objective Labs Labs: Short CBC 05/09/24 05/10/24 Range/Units 10:30 06:07 WBC 8.3 6.3 (4.0-11.0) 10^3/uL Hgb 13.2 L 11.9 L (14.0-18.0) g/dL Hct 39.9 L 35.5 L (42.0-54.0) % Plt Count 179 146 L (150-450) 10^3/uL BMP 05/09/24 05/10/24 10:30 06:07 Sodium 140 139 Potassium 3.6 3.4 L Chloride 103 102 Carbon Dioxide 26.8 30.0 BUN 8.0 7.0 Creatinine 1.00 0.87 Glucose 223 H 139 H Calcium 9.3 9.0 Liver Function 05/09/24 05/10/24 Range/Units 10:30 06:07 Total Bilirubin 1.0 0.7 (0.2-1.0) mg/dL AST 32 37 (15-37) U/L ALT 53 48 (16-63) U/L Alkaline Phosphatase 118 H 98 (46-116) U/L Albumin 3.6 3.1 L (3.4-5.0) g/dL Urine 05/09/24 Range/Units 14:00 Urine Color Dk. yellow (YELLOW) Urine Clarity Clear (CLEAR) Urine pH 5.0 (5.0-9.0) Ur Specific [place] >=1.030 A (1.005-1.025) Urine Protein 100 A (NEG/TRACE) mg/dL Urine Glucose (UA) 100 A (NEGATIVE) mg/dL Progress Note: A&P Assessment and Plan (1) Acute pulmonary embolism: Assessment and Plan: continue to monitor patient pulse ox, walk test today. Will treat with therapeutic lovenox at 1mg/kg SQ BID and will transition to Eliquis today 10mg BID x 7 days, then 5mg BID. Renal function normal. PE seen on CTA in the right lower segmental artery. Qualifiers: Acute cor pulmonale presence: without acute cor pulmonale Pulmonary embolism type: other Qualified Code(s): I26.99 - Other pulmonary embolism without acute cor pulmonale (2) Non-ST elevation [place] (NSTEMI): Assessment and Plan: elevated Trop with no EKG changes, most likely Type 2 NSTEMI from heart strain from acute PE. Continue statin and aspirin, Treat PE. check lipids normal, tsh normal, on telemetry. Control BP. continue statin. Echocardiogram read pending; patient with recent heart cath with no intervention last month at [facility], cards consult yesterday asked to trend trops, they continue to trend up. Lower ext dopplers negative. (3) Right lower lobe pneumonia: Assessment and Plan: Levaquin 750mg IV daily, duonebs scheduled and PRN albuterol, OPEP therapy. cough medication as needed. Qualifiers: Pneumonia type: due to unspecified organism Qualified Code(s): J18.9 - Pneumonia, unspecified organism (4) Type 2 diabetes mellitus with hyperglycemia: Assessment and Plan: continue long acting insulin, diabetic diet, accuchecks qachs, SSI Qualifiers: Diabetes mellitus care home insulin use: with care home use Qualified Code(s): E11.65 - Type 2 diabetes mellitus with hyperglycemia; Z79.4 - MCFP (current) use of insulin (5) Sleep apnea treated with continuous positive airway pressure (CPAP): Assessment and Plan: may wear home CPAP (6) High cholesterol: Assessment and Plan: continue statin (7) Prostate CA: (8) Hypertension: Assessment and Plan: elevated today, stop metoprolol and start coreg, continue amlodipine and lisinopril/hctz Qualifiers: Hypertension type: secondary to endocrine disorders Qualified Code(s): I15.2 - Hypertension secondary to endocrine disorders Plan patient is a full code Roldan Garcia today Would like to see a downward trend in troponins, will need another day of medically necessary treatment to treat heart strain/pneumonia and acute PE.
[2024-05-10] MEDS: INSULIN ASPART 300 UNIT/3 ML PEN SUBQ ×4 (09:29→21:08)
[2024-05-10] MEDS: CARVEDILOL 6.25 MG TABLET PO ×2 (09:31→21:07)
[2024-05-10] MEDS: APIXABAN 5 MG TABLET 10 MG PO ×2 (09:31→21:07)
[2024-05-10] MEDS: EZETIMIBE 10 MG TABLET PO (09:31)
[2024-05-10] MEDS: TAMSULOSIN HCL 0.4 MG CAPSULE PO (09:31)
[2024-05-10] MEDS: ASPIRIN 81 MG TAB.CHEW PO (09:31)
[2024-05-10] MEDS: AMLODIPINE BESYLATE 5 MG TABLET 10 MG PO (09:31)
[2024-05-10] MEDS: LISINOPRIL/HYDROCHLOROTHIAZIDE 20-12.5 MG TABLET 1 TAB PO ×2 (09:32→21:07)
--- NOTE | 2024-05-10 10:33 | CM.NOTE ---
Rounds made with Dr. Marquez, discussed plan of care with pt. Pt requesting for discharge to home today. Dr. Marquez discussed diagnosis with pt, pt continues to require oxygen and Tropin remains elevated. Dr. Marquez will re-evaluate pt this afternoon.
[2024-05-10 13:51] LABS: Glucometer 223 mg/dL (74-106)
[2024-05-10] MEDS: LEVOFLOXACIN IN DEXTROSE 5 % 750 MG/150 ML PREMIX 100 MG IV (13:54)
[2024-05-10 17:18] LABS: Glucometer 260 mg/dL (74-106)
[2024-05-10] MEDS: MONTELUKAST SODIUM 10 MG TABLET PO (21:07)
[2024-05-10] MEDS: ATORVASTATIN CALCIUM 40 MG TABLET PO (21:07)
[2024-05-10] MEDS: [UNRECOGNIZED DRUG - REMARK] 40 EACH SUBQ (21:09)
[2024-05-10 21:15] LABS: Glucometer 262 mg/dL (74-106)
[2024-05-11] VITALS (8 sets, daily range): BP systolic 170–176; BP diastolic 80–98; PULSE 69–101; TEMP 36.8; O2SAT 93–97
[2024-05-11] MEDS: IPRATROPIUM/ALBUTEROL SULFATE 3 ML AMPUL.NEB IH (05:19)
[2024-05-11 05:48] LABS: Basophils Percent Auto 0.7 % (0.2-2.0); Eosinophils Absolute Auto 0.5 10^3/uL (0.0-0.7); Hematocrit 36.6 % (42.0-54.0); Immature Granulocytes Abs Auto 0.01 10^3/uL (0.00-0.03); Immature Granulocytes Pct Auto 0.2 % (0.0-0.5); Lymphocytes Absolute Auto 1.5 10^3/uL (1.2-3.8); Lymphocytes Percent Auto 25.1 % (20.5-60.0); Mean Corpuscular HGB Conc 32.8 g/dL (29.9-35.2); Mean Corpuscular Hemoglobin 27.9 pg (25.9-34.0); Mean Corpuscular Volume 85.1 fL (80.0-94.0); Mean Platelet Volume 10.6 fL (9.5-13.5); Monocytes Absolute Auto 0.7 10^3/uL (0.3-0.8); Monocytes Percent Auto 12.1 % (1.7-12.0); Neutrophils Absolute Auto 3.1 10^3/uL (1.4-6.5); Neutrophils Percent Auto 53.9 % (43.0-75.0); Platelet Count 164 10^3/uL (150-450); Red Cell Distribution Width 14.4 % (11.0-15.0); White Blood Count 5.8 10^3/uL (4.0-11.0)
[2024-05-11 06:13] LABS: Alanine Aminotransferase 52 U/L (16-63); Albumin Globulin Ratio 0.9; Albumin Level 3.2 g/dL (3.4-5.0); Alkaline Phosphatase 96 U/L (46-116); Anion Gap 8.5; Aspartate Amino Transferase 36 U/L (15-37); BUN Creatinine Ratio 8.1; Bilirubin Total 0.8 mg/dL (0.2-1.0); Chloride 97 mmol/L (98-107); Estimated GFR (African America >60 (>=60); Estimated GFR (Non-African Ame >60 (>=60); Globulin 3.7 g/dL; Glucose 172 mg/dL (74-106); Potassium 3.5 mmol/L (3.5-5.1); Sodium 135 mmol/L (136-145); Total Protein 6.9 g/dL (6.4-8.2)
--- NOTE | 2024-05-11 08:00 | PM.DS1 ---
DS: Providers Provider Date of admission: 05/09/24 14:32 Primary care physician: Adilson Luu MD Admitting clinician: Rani Marquez Consults: 05/09/24 15:09 Consult to Cardiology Routine Reason for consultation: NSTEMI, recent admission to [place], PE now Has provider been notified: No 05/10/24 10:55 Physical Therapy Eval and Treat Routine Reason for consultation: uses a cane, weakness, short of breath Has provider been notified: No Discharging clinician: Rani Marquez DS: Diagnosis Discharge Diagnosis (1) Acute pulmonary embolism: Qualifiers: Acute cor pulmonale presence: without acute cor pulmonale Pulmonary embolism type: other Qualified Code(s): I26.99 - Other pulmonary embolism without acute cor pulmonale (2) Non-ST elevation [place] (NSTEMI): (3) Right lower lobe pneumonia: Qualifiers: Pneumonia type: due to unspecified organism Qualified Code(s): J18.9 - Pneumonia, unspecified organism (4) Type 2 diabetes mellitus with hyperglycemia: Qualifiers: Diabetes mellitus halfway insulin use: with halfway use Qualified Code(s): E11.65 - Type 2 diabetes mellitus with hyperglycemia; Z79.4 - MCFP (current) use of insulin (5) Sleep apnea treated with continuous positive airway pressure (CPAP): (6) High cholesterol: (7) Prostate CA: (8) Hypertension: Qualifiers: Hypertension type: secondary to endocrine disorders Qualified Code(s): I15.2 - Hypertension secondary to endocrine disorders DS: Summary Hospital Course Hospital Course: Patient is a 68 y.o black male with past medical history of prostate cancer, Insulin dependent type 2 diabetes, Hypertension, Seasonal allergies, Prior CVA, sleep apnea, who presented to the ER with coughing, shortness of breath and chest pain. Patient has undergone chemotherapy for prostate cancer but finished 5 months ago. No prior history of PE or DVT's. Patient reports compliance with his medications. ER findings: Elevated Trop 338, EKG shows no ST changes, CXR-normal, Chest CTA showed acute PE in the Right lower segment along with RLL consolidation concerning for Pneumonia. Patient was saturating 97% on RA, pulse 76. Patient admitted for RLL pneumonia and Acute PE. Patient was treated with therapeutic Lovenox for 24 hours and then transitioned to Eliquis 10mg BID. Patient tolerated this well. He will complete 10mg BID x 6 more days then he will take 5mg PO BID. His blood pressure was also elevated so i stopped the metoprolol and placed him on medium strength Coreg at 6.25mg BID, this change will be present at the time of discharge. Echocardiogram showed no acute changes and no wall motion abnormalities or valve disease. We had no cardiology consults available yesterday to discuss the uptrending of troponin so I called the dye automation operator commissioner of relocation services, Dr. Killian who agreed that as long as there had been no echo changes the validity in continuing to trend troponin is null. Patient had coronary angiogram in February at [facility] with no intervention but medical management. He is not having any chest pain at the time of discharge and shortness of breath has improved. He will be treated with 5 days of Levaquin 750mg daily and cough medication as needed. Patient does not use his CPAP but does use 3L NC oxygen at night time and he will also continue this upon discharge. He will have close follow ups with [facility] cardiology and Dr. Luu. He may return to the hospital with any worsening signs or symptoms. Status at Discharge Functional status at discharge: uses cane/walker Overall status at discharge: patient is back to baseline Time Spent with Patient Time attestation: Total time spent providing and/or coordinating discharge services: Time spent: greater than 30 minutes Exam Narrative Exam Narrative: General: Patient is alert, and oriented to person, place and time with normal affect, proper hygiene, sitting comfortably in chair. Skin: no visible rashes, or ulcers Head: atraumatic, acephalic Eyes: PERRLA, no nystagmus present, conjunctiva clear, no scleral icterus Ears: normal gross auditory acuity Nose: symmetric, no discharge, no maxillary or frontal sinus tenderness Heart: Normal rate and rhythm, no murmurs/rubs/gallops Lungs: audible wheezes on the right lung only, no crackles Abdomen: Normal audible bowel sounds, no distension, No palpable masses, no organomegaly, no rebound/guarding/ or rigidity Musculoskeletal:no swelling bilateral lower extremities Neuro: CN II-X grossly intact Constitutional Vital Signs, click to edit/add: Last Vital Signs Temp 98.2 F 05/11/24 05:28 Pulse 72 05/11/24 05:58 Resp 18 05/11/24 05:28 BP 170/80 H 05/11/24 05:28 Pulse Ox 97 05/11/24 05:28 O2 Del Method Room Air 05/11/24 05:28 O2 Flow Rate 3 05/11/24 05:21 DS: Data Data Completed and Pending Labs on day of discharge: Labs from last 24 hours 05/11/24 05/10/24 05/10/24 05:40 21:07 17:17 WBC 5.8 RBC 4.30 L Hgb 12.0 L Hct 36.6 L MCV 85.1 MCH 27.9 MCHC 32.8 RDW 14.4 Plt Count 164 MPV 10.6 Neut % (Auto) 53.9 Lymph % (Auto) 25.1 [place] % (Auto) 12.1 H Eos % (Auto) 8.0 H Baso % (Auto) 0.7 Neut # (Auto) 3.1 Lymph # (Auto) 1.5 [place] # (Auto) 0.7 Eos # (Auto) 0.5 Baso # (Auto) 0.0 Abs Immat Gran (auto) 0.01 Imm/Tot Granulo (auto) 0.2 Sodium 135 L Potassium 3.5 Chloride 97 L Carbon Dioxide 33.0 H Anion Gap 8.5 BUN 8.0 Creatinine 0.99 Est GFR ( Amer) >60 Est GFR (Non-Af Amer) >60 BUN/Creatinine Ratio 8.1 Glucose 172 H Calcium 9.0 Total Bilirubin 0.8 AST 36 ALT 52 Alkaline Phosphatase 96 Total Protein 6.9 Albumin 3.2 L Globulin 3.7 Albumin/Globulin Ratio 0.9 POC Glucose 262 H 260 H 05/10/24 13:41 WBC RBC Hgb Hct MCV MCH MCHC RDW Plt Count MPV Neut % (Auto) Lymph % (Auto) [place] % (Auto) Eos % (Auto) Baso % (Auto) Neut # (Auto) Lymph # (Auto) [place] # (Auto) Eos # (Auto) Baso # (Auto) Abs Immat Gran (auto) Imm/Tot Granulo (auto) Sodium Potassium Chloride Carbon Dioxide Anion Gap BUN Creatinine Est GFR ( Amer) Est GFR (Non-Af Amer) BUN/Creatinine Ratio Glucose Calcium Total Bilirubin AST ALT Alkaline Phosphatase Total Protein Albumin Globulin Albumin/Globulin Ratio POC Glucose 223 H Discharge Plan Discharge Disposition: Home, Self-Care Condition: Fair Discharge Medications: New carvedilol 6.25 mg Tablet 6.25 mg PO BID 30 Days Qty: 60 0RF dextromethorphan-guaifenesin 10-100 mg/5 mL Syrup 10 ml PO Q6H PRN (Reason: Cough) 5 Days Qty: 200 0RF Eliquis 5 mg Tablet 5 mg PO BID 30 Days Qty: 72 0RF Rx Instructions: Please take 10mg PO BID x 6 days, then 5mg PO BID levofloxacin 750 mg tablet 750 mg PO DAILY 5 Days Qty: 5 0RF Continued insulin glargine-yfgn [Semglee(insulin glarg-yfgn)Pen] 100 unit/mL (3 mL) insulin pen 40 unit SUBCUT .QHS aspirin 81 mg capsule 81 mg PO DAILY amlodipine 10 mg tablet 10 mg PO DAILY cholecalciferol (vitamin D3) 50 mcg (2,000 unit) tablet 50 mcg PO DAILY ezetimibe 10 mg tablet 10 mg PO QAM glipizide 10 mg tablet 10 mg PO BIDWM lisinopril-hydrochlorothiazide 20-12.5 mg tablet 1 tab PO BID metformin 500 mg tablet extended release 24 hr 500 mg PO BID montelukast 10 mg tablet 10 mg PO .QHS pioglitazone 30 mg tablet 30 mg PO DAILY tamsulosin 0.4 mg capsule 0.4 mg PO DAILY calcium carbonate-vitamin D3 600 mg-10 mcg (400 unit) tablet 1 tab PO DAILY rosuvastatin 40 mg tablet 40 mg PO .QHS Repatha SureClick 140 mg/mL pen injector 140 mg subcut Q14D Discontinued metoprolol succinate 50 mg tablet extended release 24 hr 50 mg PO QAM Activity: increase activity as tolerated and wear oxygen at night Activity Detail: wears 3 L NC at night time Diet: advance to your usual diet Print Language: Ghanaian Forms: Portal Instructions Follow Up Appointments: please make follow up with [facility] cardiology for 1 week follow up with PCP within 1 week
[2024-05-11] MEDS: AMLODIPINE BESYLATE 5 MG TABLET 10 MG PO (08:25)
[2024-05-11] MEDS: CARVEDILOL 6.25 MG TABLET PO (08:25)
[2024-05-11] MEDS: GUAIFENESIN 200 MG/DEXTROMETHORPHAN 20 MG 10 ML UNIT DOSE CUP PO (08:25)
[2024-05-11] MEDS: LISINOPRIL/HYDROCHLOROTHIAZIDE 20-12.5 MG TABLET 1 TAB PO (08:25)
[2024-05-11] MEDS: EZETIMIBE 10 MG TABLET PO (08:25)
[2024-05-11] MEDS: ASPIRIN 81 MG TAB.CHEW PO (08:25)
[2024-05-11] MEDS: TAMSULOSIN HCL 0.4 MG CAPSULE PO (08:25)
[2024-05-11] MEDS: APIXABAN 5 MG TABLET 10 MG PO (08:25)
--- NOTE | 2024-05-11 08:45 | SWNOTE1 ---
Pt is not on oxygen at this time. No anticipated discharge needs.
--- NOTE | 2024-05-14 14:06 | CM.DCFOLLOWU ---
Person spoke with:patient How are you feeling?well How is your pain?none Did you understand your discharge instructions?yes Do you have any questions about your discharge instructions?no Were you given any prescriptions at discharge?yes Were you able to get your prescriptions filled?yes Do you understand how to take your medications as ordered?yes Do you have any questions about your follow up appointment and do you plan to keep your follow up appointment? no questions, reviewed follow ups Is there anything else that you would like to discuss?no Questions/Comments/Concerns/Other:no
== END 2024-05-11 08:45 | disposition home or self-care (01) | DRG 175 ==
LOC: ER 13:49 → MS 14:40
PROVIDERS: Internal Medicine; Nurse Practitioner Family; Admitting Provider Family Medicine; Emergency Provider Emergency Medicine; PCP Family Medicine; Visit Provider Family Medicine
DX: I26.99 Other pulmonary embolism without acute cor pulmonale (principal); I21.A1 Myocardial infarction type 2; J18.9 Pneumonia, unspecified organism; I50.22 Chronic systolic (congestive) heart failure; E11.65 Type 2 diabetes mellitus with hyperglycemia; E78.00 Pure hypercholesterolemia, unspecified; I15.2 Hypertension secondary to endocrine disorders; G47.30 Sleep apnea, unspecified; I25.10 Atherosclerotic heart disease of native coronary artery without angina pectoris; J45.909 Unspecified asthma, uncomplicated; F32.A Depression, unspecified; F01.50 Vascular dementia, unspecified severity, without behavioral disturbance, psychotic disturbance, mood disturbance, and anxiety; I67.9 Cerebrovascular disease, unspecified; Z85.46 Personal history of malignant neoplasm of prostate; Z79.899 Other long term (current) drug therapy; Z79.4 Long term (current) use of insulin; Z87.891 Personal history of nicotine dependence; Z86.73 Personal history of transient ischemic attack (TIA), and cerebral infarction without residual deficits; I25.2 Old myocardial infarction; Z98.890 Other specified postprocedural states; Z79.84 Long term (current) use of oral hypoglycemic drugs; Z79.82 Long term (current) use of aspirin
CPT/HCPCS: 36415; 71045; 71275; 80053; 80061; 81001; 82948; 83605; 83880; 84443; 84484; 85025; 87040; 87804; 87811; 93005; 93306; 93970; 94640; 94667; 94668; 94761; 96361; 96365; 96366; 96372; 96375; 97161; 99285; J1650; J1885; Q9967

== ENCOUNTER 2024-09-30 22:19 | Inpatient (IN) | payer OTHER, MEDICARE, SELFPAY ==
[2024-09-30] VITALS (14 sets, daily range): BP systolic 184–188; BP diastolic 84–90; PULSE 102–108; TEMP 39.4; O2SAT 93–97; BMI 26.2
--- OUTSIDE RECORDS SUMMARY | 2024-09-30 22:27 | XMS_ITS | CCD ---
Author Organization [facility] Care Team Providers Care Bathing Suit Maker Name Role Phone Adilson Salazar Primary Care Provider OSCAR HARP Admitting Unavailable SONJABOUR, AMFE Consulting Unavailable OMER ZAMBRANO Attending Unavailable ADILSON SALAZAR Primary Care UnavailJAMILA Raygoza Consulting Unavailable ADILSON SALAZAR Primary Care Physician [phone] MD Adilson Salazar Primary Care Provider [phone] MD Milvia Palomo Attending Provider MD Adilson Salazar Primary Care Provider MD Milvia Palomo Attending Provider [phone] MARIE, DR ADILSON Johnson Admitting Unavailable NADERER, DR ADILSON Johnson Attending Unavailable NADERER, DR ADILSON Johnson Primary Care Unavailable NADERER, DR ADILSON Johnson Consulting Unavailable NADERER, DR ADILSON oJhnson Admitting Unavailable NADERER, DR ADILSON Johnson Attending [...] NADERER, DR ADILSON Johnson Primary Care Unavailable ZIABBI, DR SUELLEN Alcantara Consulting Unavailable NILL ., DR ACEVEDO Consulting Unavailable MILVIA PALOMO Admitting Unavailable MILVIA PALOMO Attending Unavailable NADERER, DR ADILSON Johnson Primary Care Unavailable LUE, MILVIA M Consulting Unavailable NADERER, DR ADILSON Johnson Primary [...] Unavailable Naderer Adilson COTTO Primary Care Provider Sonya Norleena R Admitting Unavailable Sonya, Norleena R Attending Unavailable Lue, Milvia M Referring Unavailable NadererAdilson Primary Care Unavailable NADERER, ADILSON Attending Unavailable NADERER, ADILSON Attending Unavailable NADERER, ADILSON Attending Unavailable NADERER, ADILSON Attending Unavailable NADERER, ADILSON Attending Unavailable NADERER, ADILSON Attending Unavailable NADERER, ADILSON Attending Unavailable Naderer Adilson COTTO Primary Care Provider [phone] JONATHAN GAN Referring Unavailable JONATHAN GAN Referring Unavailable LINDA, FIRAS Referring Unavailable LINDA, FIRAS Attending Unavailable ALGHOTHANIKELSEY Attending Unavailable HADZIAHMETOVICSILVANO Attending Unavaila ble PHYLLIS ACOSTA Attending Unavailable VIVIAN BILLY Attending Unavailable PHYLLIS ACOSTA Attending Unavailable CUCA AGUILAR Referring Unavailable DASHAWN SAAB Referring Unavailable PUJA MONTES DE OCA Admitting Unavailable YEYO CASTILLO Attending Unavailable Allergies Allergy Classification Reported Allergen(s) Allergy Type Date of Onset Reaction(s) Facility (16 sources) Labetalol; 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: [labetalol] Drug Allergy 0 Unknown (origin) (qualifier value) [facility] (14 sources) Penicillin; 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: [penicillin] Drug Allergy 7 Unknown [facility] (16 sources) Penicillins; 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: [Penicillins] Allergy to substance 4 [facility] (1 source) Labetalol Drug Allergy [facility] (1 source) Labetalol Drug Allergy 1 [facility] Medications Current Medications Medication Drug Class(es) Dates Sig (Normalized) Sig (Original) acetaminophen 500 mg oral tablet (12 sources) take 2 tablets by mouth every six hours as needed for pain acetaminophen (Tylenol) 500 MG tablet Take 1,000 mg by mouth every 6 (six) hours if needed for mild pain. Active acetaminophen 325 mg / HYDROcodone bitartrate 5 mg oral tablet (2 sources) Opioid Agonist Start: 06-24-2021 take 1 tablet by mouth every six hours Hydrocodone-Acetami nophen Active 1 TAB PO Q6H June 23, 2021 11:00pm albuterol 0.833 mg/ml / ipratropium bromide 0.167 mg/ml inhalation solution (20 sources) Anticholinergic, beta2-Adrenergic Agonist Start: 06-11-2022 DuoNeb 2.5 mg-0.5 mg/3 mL Soln-Inh 3 mL, NEB, q4hr Shortness of breath or wheezing, Refill(s) 0 Start Date: 06/11/22 Status: Ordered ipratropium-albu terol (Duo-Neb) 0.5-2.5 mg/3 mL nebulizer solution Take 3 mL by nebulization every 6 (six) hours. Active amLODIPine 10 mg oral tablet (20 sources) Dihydropyridine Calcium Channel Anders Start: 04-30-2024 take 1 tablet by mouth once daily amLODIPine (Norvasc) 10 MG tablet Indications: Essential hypertension, benign (CMS/HCC) Take 1 tablet by mouth once daily 30 tablet 04/30/2024 Active Start: 08-12-2020 take 1 tablet by marianne th once daily amLODIPine 10 mg Tab 10 mg = 1 tab(s), Oral, Daily, High blood pressure Start Date: 08/12/20 Status: Ordered apixaban 5 mg oral tablet (6 sources) Factor Xa Inhibitor Start: 05-12-2024 take 1 tablet by mouth in the morning Eliquis 5 MG tablet Take 5 mg by mouth in the morning and 5 mg before bedtime. 05/12/2024 Active aspirin 81 mg oral tablet (20 sources) Platelet Aggregation Inhibitor, Nonsteroidal Anti-inflammatory Drug [...] suppository 10 mg Blood Glucose Monitoring Suppl (Entegrionuch Verio Flex System) w/Device kit (10 sources) Start: 10-26-2023 Blood Glucose Monitoring Suppl (OneTouch Verio Flex System) w/Device kit Indications: Type 2 diabetes mellitus with hyperglycemia, with long-term current use of insulin (CMS/HCC) USE TO CHECK GLUCOSE THREE TIMES DAILY (IN THE MORNING, IN THE EVENING, AND BEFORE BEDTIME) 1 kit 10/26/2023 Active Blood Glucose Monitoring Suppl kit (2 sources) Start: 09-26-2023 Blood Glucose Monitoring Suppl kit Indications: Type 2 diabetes mellitus with hyperglycemia, with long-term current use of insulin ([facility]) 1 each in the morning and 1 each in the evening and 1 each before bedtime. 1 kit 0 09/26/2023 Active budesonide 0.25 mg/ml inhalation suspension (20 sources) Corticosteroid Start: 06-11-2022 take 0.5 mg by inhalation twice daily as needed for wheezing budesonide 0.5 mg/2 mL Inh Susp 0.5 mg = 2 mL, NEB, BID, PRN Shortness of breath or wheezing, Refills(s) 0 Start Date: 06/11/22 Status: Ordered take 0.25 mg by mouth in the [facility] budesonide (Pulmicort) 0.25 MG/2ML nebulizer solution Take 0.25 mg by nebulization in the morning. Rinse mouth with water after use to reduce aftertaste and incidence of candidiasis. Do not swallow.. Active 24 hr buPROPion hydrochloride 150 mg extended release oral tablet (1 source) Aminoketone take 1 tablet by mouth once daily in the morning buPROPion (WELLBUTRIN XL) 150 MG extended release tablet Take 150 mg by mouth every morning 0 Active calcium carbonate 600 mg / cholecalciferol 0.01 mg oral tablet (12 sources) Vitamin D Start: take 1 tablet by mouth in the morning Calcium + Vitamin D3 600-10 MG-MCG tablet Take 1 tablet by mouth in the morning. 09/20/2023 Active calcium polycarbophil 625 mg oral tablet (10 sources) Start: 022 take 2 tablets by mouth once daily FiberCon 625 mg Tab 1,250 mg = 2 tab(s), Oral, Daily, Refills(s) 0, Constipation Start Date: 06/11/22 Status: Ordered carvedilol 6.25 mg oral tablet (6 sources) alpha-Adrenergic Anders, beta-Adrenergic Anders Start: 024 take 1 tablet by mouth in the morning carvedilol (Coreg) 6.25 MG tablet Take 6.25 mg by mouth in the morning and 6.25 mg before bedtime. 05/12/2024 Active cholecalciferol 0.05 mg oral tablet (20 sources) Vitamin D Start: 021 take 50 ug by mouth once daily [...] times daily 30 tablet 3 06/09/2019 Active furosemide 40 mg oral tablet (9 sources) Loop Diuretic Start: 05-02-2024 take 1 tablet by mouth once daily furosemide (Lasix) 40 MG tablet Indications: Heart failure with improved ejection fraction (HFimpEF) (CMS/HCC) Take 1 tablet (40 mg) by mouth Daily 30 tablet 3 05/02/2024 Active glipiZIDE 10 mg oral tablet (20 sources) Sulfonylurea Start: 06-21-2024 take 1 tablet by mouth twice daily glipiZIDE (Glucotrol) 10 MG tablet Indications: Type 2 diabetes mellitus with hyperglycemia, 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 Active ibuprofen 800 mg oral tablet (2 [...] pen Active SUBCUT June 24, 2021 12:00am 24 hr isosorbide mononitrate 30 mg extended release oral tablet (2 sources) Nitrate Vasodilator take 1 tablet by mouth once daily, then take 1 tablet by mouth every twenty-four hours isosorbide mononitrate ER (Imdur) 30 MG 24 hr tablet Take 30 mg by mouth Daily Active labetalol (NORMODYNE;TRANDATE) injection syringe 10 mg (1 source) Start: labetalol (NORMODYNE;TRANDATE ) injection syringe 10 mg lansoprazole (1 source) Proton Pump Inhibitor take 40 mg by mouth once daily Lansoprazole (PREVACID 24HR PO) Take 40 mg by mouth daily 0 Active levoFLOXacin 750 mg oral tablet (2 sources) Quinolone Antimicrobial Start: End: take 1 tablet by mouth once daily levoFLOXacin (Levaquin) 750 MG tablet Take 750 mg by mouth Daily 05/12/2024 05/18/2024 Active magnesium hydroxide 80 mg/ml oral suspension (1 source) Start: magnesium hydroxide (MILK OF MAGNESIA) 400 MG/5ML suspension 30 mL melatonin 1 mg oral tablet (1 source) Start: melatonin tablet 3 mg 24 hr metFORMIN hydrochloride 500 mg extended release oral tablet (20 sources) Biguanide Start: take 1 tablet by mouth twice daily metFORMIN XR (Glucophage-XR) 500 MG 24 hr tablet Indications: Type 2 diabetes mellitus with hyperglycemia, with long-term current use of insulin (CMS/HCC) Take 1 tablet by mouth twice daily 60 tablet 06/20/2024 Active Start: 04-24-2024 take 1 tablet by marianne th twice daily metFORMIN XR (Glucophage-XR) 500 MG 24 hr tablet Indications: Type 2 diabetes mellitus with hyperglycemia, with long-term current use of insulin (CMS/HCC) Take 1 tablet by mouth twice daily 60 tablet 04/24/2024 Active Start: 07-10-2023 take 1 tablet by marianne th every twenty-four hours in the morning metFORMIN [...] 2021 11:00pm start 06/27/21 am 24 hr mirabegron 50 mg extended release oral tablet (12 sources) beta3-Adrenergic Agonist Start: 04-21-2022 take 1 tablet by mouth once daily Myrbetriq 50 mg oral tablet, extended release 50 mg = 1 tab(s), Oral, Daily, # 30 tab(s), Refills(s) 6, Pharmacy: [id number], 183, cm, 04/21/22 11:40:00 EDT, Height/Length Dosing, 110.3, kg, 04/21/22 11:40:00 EDT, Weight Dosing Start Date: 04/21/22 Status: Ordered montelukast 10 mg oral tablet (20 sources) Leukotriene Receptor Antagonist Start: 09-20-2023 take 1 tablet by mouth at bedtime montelukast (Singulair) 10 MG tablet Take 10 mg by mouth at bedtime 09/20/2023 Active Start: 08-12-2020 take 1 tablet [...] Start: 06-06-2019 ondansetron (ZOFRAN) injection 4 mg Potassium Chloride (1 source) Start: 06-07-2019 potassium chlo ride (KLOR-CON M) extended release tablet 40 mEq pravastatin sodium 40 mg oral tablet (1 source) HMG-CoA Reductase Inhibitor take 1 tablet by mouth once daily pravastatin (PRAVACHOL) 40 MG tablet Take 40 mg by mouth daily 0 Active relugolix (Orgovyx) 120 MG tablet (12 sources) take 1 tablet by mouth once daily relugolix (Orgovyx) 120 MG tablet Take by mouth Daily. Active take 1 tablet by mouth once jay y relugolix (Orgovyx) 120 MG tablet Take by mouth Daily. 0 Active rosuvastatin calcium 40 mg oral tablet (12 sources) HMG-CoA Reductase Inhibitor Start: 08-17-2023 take 1 tablet by mouth in the morning rosuvastatin (Crestor) 40 MG tablet Take 40 mg by mouth in the morning. 08/17/2023 Active 0.25 mg, 0.5 mg dose 1.5 ml semaglutide 1.34 mg/ml pen injector (9 sources) Start: 05-02-2024 semaglutide (Ozempic, 0.25 or 0.5 MG/DOSE,) 2 MG/1.5ML solution pen-injector Indications: Type 2 diabetes mellitus with hyperglycemia, with long-term current use of insulin (CMS/HCC) 0.25 mg SC weekly x 4 weeks, then 0.5 mg weekly 1 each 5 05/02/2024 Active Semglee, yfgn, 100 UNIT/ML pen (10 sources) Start: 06-28-2024 inject 40 [IU] by subcutaneous injection at bedtime Semglee, yfgn, 100 UNIT/ML pen Indications: Type 2 diabetes mellitus with hyperglycemia, with long-term current use of insulin (CMS/HCC) INJECT 40 UNITS SUBCUTANEOUSLY AT BEDTIME 15 mL 06/28/2024 Active Start: 05-18-2024 inject 40 [IU] by che bcutaneous injection at bedtime Semglee, yfgn, 100 UNIT/ML pen Indications: Type 2 diabetes mellitus with hyperglycemia, with long-term current use of insulin (CMS/[facility]) INJECT 40 UNITS SUBCUTANEOUSLY AT BEDTIME 15 mL 05/18/2024 Active Start: 04-02-2024 inject 40 [IU] by che bcutaneous injection at bedtime cynthia Cates, 100 UNIT/ML pen Indications: Type 2 diabetes mellitus with hyperglycemia, with long-term current use of insulin (CMS/HCC) INJECT 40 UNITS SUBCUTANEOUSLY AT BEDTIME 15 mL 04/02/2024 Active 3 ml sodium chloride 9 mg/ml injection (7 sources) Start: 06-07-2019 10 mL, Intrave nous, EVERY 12 HOURS SCHEDULED (2 times per [...] mL tamsulosin hydrochloride 0.4 mg oral capsule (20 sources) alpha-Adrenergic Anders Start: 06-21-2024 take 1 capsule by mouth once daily tamsulosin (Flomax) 0.4 MG 24 hr capsule Indications: BPH associated with nocturia Take 1 capsule by mouth once daily 90 capsule 06/21/2024 Active Start: 09-18-2023 take 1 capsule by [facility] every twenty-four hours in the morning tamsulosin (Flomax) 0.4 MG 24 hr capsule Take 0.4 mg by mouth in the morning. 09/18/2023 Active Start: 06-11-2022 take 1 capsule by mouth once d aily tamsulosin 0.4 mg Cap 0.4 mg = 1 cap(s), Oral, Daily, Refills(s) 0, Bladder problems Start Date: 06/11/22 Status: Ordered Start: 06-09-2019 take 1 capsule by mouth once d aily tamsulosin (FLOMAX) 0.4 MG capsule Take 1 capsule by mouth daily 30 capsule 3 06/09/2019 Active triamcinolone acetonide 5 mg/ml topical cream (20 sources) Corticosteroid Start: 06-11-2022 triamcinolone Top 0.5% Crm 1 zach, Topical, TID Other (see comment), Refill(s) 0 Start Date: 06/11/22 Status: Ordered triamcinolone (K enalog) 0.5 % cream Apply 1 application topically in the morning and 1 application in the evening and 1 application before bedtime. Active Completed/Discontinued Medications Medication Drug Class(es) Dates Sig (Normalized) Sig (Original) 100 ml clevidipine 0.5 mg/ml injection (1 source) Dihydropyridine Calcium Channel Anders Start: 06-05-2019 End: 06-08-2019 clevidipine (CLEVIPREX) infusion Iohexol (1 source) Radiographic Contrast Agent Start: 06-05-2019 End: 06-05-2019 iohexol (OMNIPAQUE 350) solution 90 mL 24 hr metoprolol succinate 50 mg extended release oral tablet (10 sources) beta-Adrenergic Anders Start: 06-14-2024 End: 07-02-2024 take 1 tablet by mouth once daily metoprolol succinate XL (Toprol-XL) 50 MG 24 hr tablet Take 50 mg by mouth Daily 06/14/2024 07/02/2024 Discontinued Start: 09-10-2023 take 1 tablet by marianne th every twenty-four hours in the morning metoprolol succinate XL (Toprol-XL) 50 MG 24 hr tablet TAKE 1 TABLET BY MOUTH IN THE MORNING DO NOT CRUSH OR CHEW 09/10/2023 Active Start: 06-09-2019 take 0.5 tablet by m outh twice daily metoprolol tartrate (LOPRESSOR) 25 MG tablet Take 0.5 tablets by mouth 2 times daily 60 tablet 3 06/09/2019 Active Start: 06-08-2019 metoprolol tar trate (LOPRESSOR) tablet 12.5 mg pioglitazone 30 mg oral tablet (20 sources) Peroxisome Proliferator Receptor alpha Agonist, Peroxisome Proliferator Receptor gamma Agonist, Thiazolidinedione Start: 04-30-2024 End: 05-02-2024 take 1 tablet by mouth once daily pioglitazone (Actos) 30 MG tablet Indications: Type 2 diabetes mellitus with hyperglycemia, with long-term current use of insulin (CMS/HCC) Take 1 tablet by mouth once daily 30 tablet 04/30/2024 05/02/2024 Discontinued Start: 08-12-2020 take 1 tablet by marianne th once daily pioglitazone 30 mg Tab 30 mg = 1 tab(s), Oral, Daily, Refills(s) 0, Blood glucose Start Date: 08/12/20 Status: Ordered 1.5 ml regular insulin, mery n 100 unt/ml prefilled syringe (1 source) Insulin [...] Active Problems Problem Classification Problem Date Documented Date Episodic/Chronic Abdominal pain (20 sources) Left lower quadrant pain; 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: [Left lower quadrant pain] Onset: 06-25-2022 Episodic Acute cerebrovascular disease (16 sources) Cerebrovascular accident; 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: [Cerebral infarction, unspecified] Onset: 06-05-2019 06-06-2019 Chronic Acute myocardial infarction (9 sources) Myocardial infarction; 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: [Non-ST elevation (NSTEMI) myocardial infarction] Onset: 03-13-2024 Resolved: 07-02-2024 07-02-2024 Chronic Asthma (12 sources) Asthma; 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: [Unspecified asthma, uncomplicated] Onset: 06-09-2022 06-11-2022 Chronic Cancer of prostate (20 sources) Malignant neoplasm of prostate; 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: [Malignant tumor of prostate] Onset: 08-04-2022 Chronic Cardiac dysrhythmias (2 sources) Tachycardia; 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: [Tachycardia, unspecified] 06-25-2021 Episodic Chronic kidney disease (10 sources) Chronic kidney disease stage 3 06-11-2022 Chronic Chronic kidney disease (2 sources) Chronic kidney disease; 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: [Chronic kidney disease, stage 3a] Onset: 08-07-2024 Chronic obstructive pulmonary disease and bronchiectasis (2 sources) Acute exacerbation of chronic obstructive airways disease; 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: [Chronic obstructive pulmonary disease with (acute) exacerbation] 06-25-2021 Chronic Congestive heart failure; nonhypertensive (15 sources) Heart failure; 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: [Chronic diastolic (congestive) heart failure] Onset: 03-13-2024 05-02-2024 Chronic Coronary atherosclerosis and other heart disease (18 sources) Coronary arteriosclerosis; 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: [Atherosclerotic heart disease of [place] coronary artery without angina pectoris] Onset: 03-28-2024 03-28-2024 Chronic Delirium, dementia, and amnestic and other cognitive disorders (13 sources) Vascular dementia without behavioral disturbance; 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: [Multi-infarct dementia, uncomplicated] Onset: 11-18-2022 08-05-2023 Chronic Diabetes mellitus with complications (20 sources) Type 2 diabetes mellitus with diabetic chronic kidney disease; 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: [Type 2 diabetes mellitus with hyperglycemia] Onset: 06-09-2022 08-05-2023 Chronic Diabetes mellitus without complication (15 sources) Diabetes mellitus; 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: [Type 2 diabetes mellitus without complications] Onset: 11-18-2022 06-25-2021 Chronic Diseases of white blood cells (10 sources) Eosinophil count raised 06-11-2022 Chronic Disorders of lipid metabolism (17 sources) Hyperlipidemia; 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: [Hyperlipidemia, unspecified] Onset: 07-29-2022 08-12-2020 Chronic Esophageal disorders (20 sources) Gastroesophageal reflux disease; 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: [Gastro-esophageal reflux disease without esophagitis] Onset: 07-29-2022 06-11-2022 Chronic Essential hypertension (20 sources) Hypertensive disorder; 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: [Malignant hypertension] Onset: 01-26-2022 08-12-2020 Chronic Genitourinary symptoms and ill-defined conditions (14 sources) Urinary incontinence; 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: [Urge incontinence] Onset: 09-20-2023 08-12-2020 Chronic Genitourinary symptoms and ill-defined conditions (20 sources) Nocturia; 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: [Urgent desire to urinate] Onset: 10-06-2022 08-12-2020 Episodic Hyperplasia of prostate (20 sources) Benign prostatic hypertrophy with outflow obstruction; 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: [Benign prostatic hyperplasia with lower urinary tract symptoms] Onset: 04-21-2022 Chronic Hypertension with complications and secondary hypertension (1 source) Hypertensive chronic kidney disease with stage 1 through stage 4 chronic kidney disease, or unspecified chronic kidney disease; 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: [HTN CKD W/STAGE 1-4 CKD/UNS CKD] Onset: 07-29-2022 Chronic Mycoses (4 sources) Tinea pedis; 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: [TINEA PEDIS] Onset: 11-17-2022 Episodic Nutritional deficiencies (20 sources) Vitamin D deficiency; 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: [Vitamin D deficiency, unspecified] Onset: 01-30-2022 06-11-2022 Chronic Other aftercare (1 source) Other halfway (current) drug therapy; 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: [OTH [facility] CURRENT DRUG THERAPY] Onset: 11-18-2022 Episodic Other aftercare (1 source) 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; 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: [[facility] USE ORAL HYPOGLYCEMIC DX] Onset: 11-18-2022 Episodic Other aftercare (1 source) retirement (current) use of aspirin; 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: [[facility] CURRENT USE OF ASPIRIN] Onset: 11-18-2022 Episodic Other and ill-defined cerebrovascular disease (1 source) Cerebrovascular disease, unspecified; 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: [CEREBROVASCULAR DISEASE UNSPECIFIED] Onset: 11-18-2022 Chronic Other and ill-defined cerebrovascular disease (12 sources) Cerebrovascular disease; 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: [Cerebrovascular disease, unspecified] Onset: 08-05-2023 08-05-2023 Chronic Other circulatory disease (2 sources) H/O: hypertension; 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: [History of hypertension] 06-06-2019 Episodic Other circulatory disease (12 sources) History of cerebrovascular accident; 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: [History of ischemic left MCA stroke] 06-06-2019 Episodic Other diseases of bladder and urethra (1 source) Detrusor overactivity; 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: [Overactive bladder] Onset: 02-02-2023 Chronic Other diseases of bladder and urethra (1 source) Overactive bladder 02-02-2023 Chronic Other hematologic conditions (2 sources) Raised cardiac enzyme or marker; 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: [Other specified abnormalities of plasma proteins] 06-25-2021 Episodic Other male genital disorders (18 sources) Male erectile dysfunction, unspecified; 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: [Erectile dysfunction] Onset: 04-21-2022 Chronic Other nutritional; endocrine; and metabolic disorders (1 source) Obese class I; 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: [Body mass index (BMI) 31.0-31.9, adult] Onset: 06-25-2022 Chronic Other nutritional; endocrine; and metabolic disorders (10 sources) Body mass index 30+ - obesity 06-25-2022 Chronic Other nutritional; endocrine; and metabolic disorders (10 sources) Morbid obesity 06-11-2022 Chronic Other nutritional; endocrine; and metabolic disorders (1 source) Obesity, unspecified; 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: [OBESITY UNSPECIFIED] Onset: 07-29-2022 Chronic Other nutritional; endocrine; and metabolic disorders (1 source) Body mass index (BMI) 31.0-31.9, adult; 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: [BODY MASS INDEX BMI 31.0-31.9 ADULT] Onset: 07-29-2022 Chronic Other nutritional; endocrine; and metabolic disorders (2 sources) H/O: diabetes mellitus; 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: [History of diabetes mellitus] 06-06-2019 Episodic Paralysis (2 sources) Left hemiparesis; 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: [Acute left hemiparesis] 06-06-2019 Chronic Pulmonary heart disease (7 sources) Pulmonary embolism; 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: [Single subsegmental pulmonary embolism without acute cor pulmonale] Onset: 05-18-2024 05-18-2024 Episodic Residual codes; unclassified (20 sources) Obstructive sleep apnea syndrome; 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: [Obstructive sleep apnea (adult) (pediatric)] Onset: 08-05-2023 06-11-2022 Chronic Residual codes; unclassified (3 sources) Obstructive sleep apnea (adult) (pediatric); 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: [OBSTRUCTIVE SLEEP APNEA] Onset: 11-18-2022 Chronic Residual codes; unclassified (1 source) Sleep apnea, unspecified; 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: [SLEEP APNEA UNSPECIFIED] Onset: 07-29-2022 Chronic Unclassified (1 source) CHRN KIDNEY DISEASE STG 3 UNSP; 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: [CHRN KIDNEY DISEASE STG 3 UNSP] Onset: 07-29-2022 Unclassified (1 source) CONTACT W/AND (SUSP) EXPOS COVID-19; 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: [CONTACT W/AND (SUSP) EXPOS COVID-19] Onset: 07-21-2022 Past or Other Problems Problem Classification Problem Date Documented Da te Episodic/Chronic Acute and unspecified renal failure (1 source) Acute kidney failure, unspecified; 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: [ACUTE KIDNEY FAILURE UNSPECIFIED] Onset: 06-09-2022 Episodic Allergic reactions (20 sources) Vesicular eczema; 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: [Dyshidrosis [pompholyx]] Onset: 08-05-2023 06-11-2022 Episodic Anal and rectal conditions (1 source) Rectal polyp; 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: [RECTAL POLYP] Onset: 07-29-2022 Episodic Fluid and electrolyte disorders (1 source) Dehydration; 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: [DEHYDRATION] Onset: 06-09-2022 Episodic Mood disorders (20 sources) Depressive disorder; 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: [Recurrent major depressive episodes, moderate ] Onset: 08-05-2023 Resolved: 03-28-2024 08-12-2020 Chronic Nonspecific chest pain (2 sources) Chest pain, unspecified; 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: [Chest pain, unspecified] Onset: 03-13-2024 Episodic Other aftercare (3 sources) 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; 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: [FCI CURRENT USE OF INSULIN] Onset: 11-18-2022 Episodic Other circulatory disease (1 source) Personal history of transient ischemic attack (TIA), and cerebral infarction without residual deficits; 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: [PERS HX TIA AND CI NO RESID DEFICIT] Onset: 07-29-2022 Episodic Other ear and sense organ disorders (11 sources) Impacted cerumen of bilateral ears; 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: [Impacted cerumen, bilateral] Onset: 05-02-2024 Resolved: 05-18-2024 05-18-2024 Episodic Other eye disorders (20 sources) Abducens nerve palsy; 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: [Sixth [abducent] nerve palsy, right eye] Onset: 08-05-2023 06-11-2022 Episodic Other screening for suspected conditions (not mental disorders or infectious disease) (13 sources) Raised prostate specific antigen; 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: [Elevated prostate specific antigen [PSA]] Onset: 01-30-2022 Episodic Phlebitis; thrombophlebitis and thromboembolism (20 sources) H/O: Deep vein thrombosis; 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: [Personal history of other venous thrombosis and embolism] Onset: 11-18-2022 06-08-2019 Episodic Pneumonia (except that caused by tuberculosis or sexually transmitted disease) (7 sources) Right lower zone pneumonia; 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: [Pneumonia, unspecified organism] Onset: 05-18-2024 Resolved: 07-02-2024 07-02-2024 Episodic Screening and history of mental health [...] Test Name Value Interpretation Reference Range Facility Follow-Upon 08-07-2024 Follow-Up [id number] Eunice Marte 1955 M Date Provider Department Center 08/07/2024 PHYLLIS DANGELO DCC ONC DCC Family History Problem Relation Age of Onset Heart disease Mother 58 Heart disease Maternal Grandmother Comments: heart trouble Heart disease Maternal Grandfather Comments: heart trouble Family Status - Relation Status Age at Mother Father Mother's Sister Mother's Brother Father's Sister Father's Brother Maternal Grandmother Maternal Grandfather Paternal Grandmother Paternal Grandfather Other Level of Service:43560 MO OFFICE/OUTPATIENT ESTABLISHED LOW MDM 20 MIN Reason for Visit and Comments: Follow-up [906969] - Here for F/U of his prostate CA and to review PSA & Testosterone results. Normal [facility] LIPID PANELon 07-24-2024 CHOL/HDL 3.8 mg/dL Normal [facility] Comment on above: Performed By: #### L [id number] #### [facility] ([facility]) [address] [facility] [address] Cholesterol [Mass/Vol] 150 mg/dL Normal 120-200 [facility] Comment on above: Performed By: #### L [id number] #### [facility] ([facility]) [address] [place] [address] Magnesium [Mass/Vol] 111 mg/dL Normal 40-149 [facility] Comment on above: Result Comment: TRIG LYCERIDE REFERENCE RANGE: 20 YEARS AND OLDER CARDIOVASCULAR RISK LESS THAN 150 mg/dL LOW RISK 150 TO 199 mg/dL BORDERLINE RISK 200 mg/dL AND GREATER HIGH RISK Performed By: #### L [id number] #### [facility] ([facility]) [address] [place] [address] Magnesium [Mass/Vol] 88 mg/dL Normal 0-160 [facility] Comment on above: Performed By: #### L [id number] #### [facility] ([facility]) [address] [place] [address] Magnesium [Mass/Vol] 40 mg/dL Normal 23-92 [facility] Comment on above: Performed By: #### L [id number] #### [facility] ([facility]) [address] [place] [address] NON HDL CHOL. (LDL+VLDL) 110 Normal [facility] Comment on above: Performed By: #### L [id number] #### [facility] ([facility]) [address] [place] [address] TOTAL VLDL-C 22 mg/dL Normal 0-40 [facility] Comment on above: Performed By: #### L [id number] #### [facility] ([facility]) [address] [place] [address] Labon 07-24-2024 Lab [id number] Eunice Marte 1955 M Date Provider Department Center 07/24/2024 2243-[facility] RESOURCE DCC DRAW [facility] Family History Problem Relation Age of Onset Heart disease Mother 58 Heart disease Maternal Grandmother Comments: heart trouble Heart disease Maternal Grandfather Comments: heart trouble Family Status - Relation Status Age at Mother Father Mother's Sister Mother's Brother Father's Sister Father's Brother Maternal Grandmother Maternal Grandfather Paternal Grandmother Paternal Grandfather Other Normal [facility] PSA, DIAGNOSTICon 07-24-2024 PROSTATE SPECIFIC AG (NG/ML) IN SER/PLAS 0.1 ng/mL Low 0.4-4 [facility] Comment on above: Order Comment: To be collected 07/2024 Performed By: #### L [id number] ####[facility] ([facility])[address] [place] [address] TESTOSTERONEon 07-24-2024 TESTOSTERONE (NG/DL) IN SER/PLAS 52 ng/dL Low 193-740 [facility] Comment on above: Order Comment: To be collected 07/2024 Result Comment: Test Performed by [facility] [place] [address] - Released 07/25/2024 11:50 Performed By: #### L [id number] #### [facility] ([facility]) [address] [place] [address] Office Visiton 06-01-2024 Follow-up visit [id number] Eunice Marte 1955 Provider Department Center 06/01/2024 3848-KELSEY JUDD SHANON Rm Hos Family History Problem Relation Age of Onset Heart disease Mother 58 Heart disease Maternal Grandmother Comments: heart trouble Heart disease Maternal Grandfather Comments: heart trouble Family Status - Relation Status Age at Mother Father Mother's Sister Mother's Brother Father's Sister Father's Brother Maternal Grandmother Maternal Grandfather Paternal Grandmother Paternal Grandfather Other Level of Service:56327 MO OFFICE/OUTPATIENT ESTABLISHED LOW MDM 20 MIN Normal [facility] Orders Onlyon 04-25-2024 Orders Only [id number] Eunice Marte 1955 Provider Department Center 04/25/2024 1052-ROSEMARY LEVIN [facility] INT MED Comprehensiv Family History Problem Relation Age of Onset Heart disease Mother 58 Heart disease Maternal Grandmother Comments: heart trouble Heart disease Maternal Grandfather Comments: heart trouble Family Status - Relation Status Age at Mother Father Mother's Sister Mother's Brother Father's Sister Father's Brother Maternal Grandmother Maternal Grandfather Paternal Grandmother Paternal Grandfather Other Normal [facility] Documentationon 04-17-2024 Documentation [id number] Eunice Marte 1955 Provider Department Center 04/17/2024 [id number], [facility] CARD [place] HeartVAS Family History Problem Relation Age of Onset Heart disease Mother 58 Heart disease Maternal Grandmother Comments: heart trouble Heart disease Maternal Grandfather Comments: heart trouble Family Status - Relation Status Age at Mother Father Mother's Sister Mother's Brother Father's Sister Father's Brother Maternal Grandmother Maternal Grandfather Paternal Grandmother Paternal Grandfather Other Reason for Visit and Comments: [id number] [Other] Normal [facility] Documentation [id number] Eunice Marte 1955 Provider Department Center 04/17/2024 Mona7-REDDY BARNARD Family History Problem Relation Age of Onset Heart disease Mother 58 Heart disease Maternal Grandmother Comments: heart trouble Heart disease Maternal Grandfather Comments: heart trouble Family Status - Relation Status Age at Mother Father Mother's Sister Mother's Brother Father's Sister Father's Brother Maternal Grandmother Maternal Grandfather Paternal Grandmother Paternal Grandfather Other Reason for Visit and Comments: Specialty Phamracy Note: Repatha [Other] Normal [facility] Orders Onlyon 04-16-2024 Orders Only [id number] Eunice Marte 1955 M Date Provider Department Center 04/16/2024 VIVIAN AVITIA [facility] CARD [place] HeartVAS Family History Problem Relation Age of Onset Heart disease Mother 58 Heart disease Maternal Grandmother Comments: heart trouble Heart disease Maternal Grandfather Comments: heart trouble Family Status - Relation Status Age at Mother Father Mother's Sister Mother's Brother Father's Sister Father's Brother Maternal Grandmother Maternal Grandfather Paternal Grandmother Paternal Grandfather Other Normal [facility] Follow-Upon 04-10-2024 Follow-Up [id number] EstuardoEunice 1955 M Date Provider Department Center 04/10/2024 VIVIAN AVITIA [facility] CARD [place] [facility] Family History Problem Relation Age of Onset Heart disease Mother 58 Heart disease Maternal Grandmother Comments: heart trouble Heart disease Maternal Grandfather Comments: heart trouble Family Status - Relation Status Age at Mother Father Mother's Sister Mother's Brother Father's Sister Father's Brother Maternal Grandmother Maternal Grandfather Paternal Grandmother Paternal Grandfather Other Level of Service:82721 MO OFFICE/OUTPATIENT ESTABLISHED MOD MDM 30 MIN Normal [facility] 36on 03-16-2024 36 Post Discharge Call Good morning, I am Rani Tovar, DAMIÁN a lead nurse from [facility]. I am calling you to follow [...] No Patient Name Eunice Marte Date 03/16/24 [facility] Telephoneon 03-16-2024 Telephone [id number] Eunice Marte 1955 M Date Provider Department Center 03/16/2024 Reese-RANI T[facility] Family History Problem Relation Age of Onset Heart disease Mother 58 Heart disease Maternal Grandmother Comments: heart trouble Heart disease Maternal Grandfather Comments: heart trouble Family Status - Relation Status Age at Mother Father Mother's Sister Mother's Brother Father's Sister Father's Brother Maternal Grandmother Maternal Grandfather Paternal Grandmother Paternal Grandfather Other [facility] 30on 03-14-2024 30 Daily Case Managemen [...] PT Recommendations: OT Recommendations: New Consults: Normal [facility] APOLIPOPROTEIN B-100on 03-14 Magnesium [Mass/Vol] 85 mg/dL Normal 66-133 [facility] Comment on above: Result Comment: [...] atherosclerotic cardiovascular disease in adults. Performed By: [email or web address] [address] [place] [id number] Access Consultant: Sylvester Damian MD, PhD CLIA Number: [id number] Performed By: #### L [id number] #### [facility] ([facility]) [address] [place] [address] CBCon 03-14-2024 Erythrocyte distribution width (RBC) [Ratio] 14.5 % Normal 11.5-15.0 [facility] Comment on above: Performed By: #### L [id number] ####[facility] ([facility])[address] [place] [address] ERYTHROCYTE MEAN CORPUSCULAR HEMOGLOBIN CONCENTRATION (G/DL) BY AUTOMATED 32.8 g/dL Normal 32.0-35.0 [facility] Comment on above: Performed By: #### L [id number] ####[facility] ([facility])[address] [place] [address] Hematocrit (Bld) [Volume fraction] 35.4 % Low 39.0-55.0 [facility] Comment on above: Performed By: #### L [id number] ####[facility] ([facility])[address] [place] [address] Hemoglobin (Bld) [Mass/Vol] 11.6 g/dL Low 13.0-17.0 [facility] Comment on above: Performed By: #### L [id number] ####[facility] ([facility])[address] [place] [address] MCH (RBC) [Entitic mass] 28.5 pg Normal 27.0-33.0 [facility] Comment on above: Performed By: #### L [id number] ####[facility] ([facility])[address] [place] [address] MCV (RBC) [Entitic vol] 87.0 fL Normal 82.0-98.0 [facility] Comment on above: Performed By: #### L [id number] ####[facility] ([facility])[address] [place] [address] PLATELETS (10*3/UL) IN BLOOD AUTOMATED COUNT 164 10*3/uL Normal 150-400 [facility] Comment on above: Performed By: #### L [id number] ####[facility] ([facility])[address] [place] [address] RBC (Bld) [#/Vol] 4.07 10*6/uL Low 4.20-5.70 [facility] Comment on above: Performed By: #### L [id number] ####[facility] ([facility])[address] [place] [address] WBC (Bld) [#/Vol] 5.46 10*3/uL Normal 4.00-10.60 [facility] Comment on above: Performed By: #### L [id number] ####[facility] ([facility])[address] [place] [address] HEMOGLOBIN A1Con 03-14-2024 Glucose [Mass/Vol] 183 mg/dL Normal [facility] Comment on above: Performed By: #### L [id number] ####[facility] ([facility])[address] [place] [address] HbA1c (Bld) [Mass fraction] 8.0 % High 4.0-6.0 [facility] Comment on above: Performed By: #### L [id number] ####[facility] ([facility])[address] [place] [address] HPon 03-14-2024 HP H&P reviewed. The patient was examined and there are no changes to the H&P. Patient is a 68 yo male patient with a PMH of CVA, CKD presenting for unstable angina. Lexiscan Myocardial Perfusion Stress Test is positive for reversible filling defect at the anterior and apical sections. Patient will undergo diagnostic CORS. Normal [facility] LIPID PANELon 03-14-2024 CHOL/HDL 3.4 mg/dL Normal [facility] Comment on above: Performed By: #### L [id number] #### [facility] ([facility]) [address] [place] [address] Cholesterol [Mass/Vol] 126 mg/dL Normal 120-200 [facility] Comment on above: Performed By: #### L [id number] #### [facility] ([facility]) [address] [place] [address] Magnesium [Mass/Vol] 124 mg/dL Normal 40-149 [facility] Comment on above: Result Comment: TRIG LYCERIDE REFERENCE RANGE: 20 YEARS AND OLDER CARDIOVASCULAR RISK LESS THAN 150 mg/dL LOW RISK 150 TO 199 mg/dL BORDERLINE RISK 200 mg/dL AND GREATER HIGH RISK Performed By: #### L [id number] #### [facility] ([facility]) [address] [place] [address] Magnesium [Mass/Vol] 64 mg/dL Normal 0-160 [facility] Comment on above: Performed By: #### L [id number] #### [facility] ([facility]) [address] [place] [address] Magnesium [Mass/Vol] 37 mg/dL Normal 23-92 [facility] Comment on above: Performed By: #### L [id number] #### [facility] ([facility]) [address] [place] [address] NON HDL CHOL. (LDL+VLDL) 89 Normal [facility] Comment on above: Performed By: #### L [id number] #### [facility] ([facility]) [address] [place] [address] TOTAL VLDL-C 25 mg/dL Normal 0-40 [facility] Comment on above: Performed By: #### L [id number] #### [facility] ([facility]) [address] [place] [address] LIPOPROTEIN A (LPA)on 2023 Magnesium [Mass/Vol] 198 mg/dL High <=29 [facility] Comment on above: Result Comment: Perf ormed By: [email or web address] [address] [place] [id number] Access Consultant: Sylvester Damian MD, PhD CLIA Number: [id number] Performed By: #### L [id number] #### [facility] ([facility]) [address] [place] [address] POCT GLUCOSE METER UNSOLICIT ED RESULTSon 03-14-2024 Glucose [Mass/Vol] 149 mg/dL High 70-105 [facility] Comment on above: Order Comment: Waive d Testing in the ED is performed under the ED CLIA certificate #[id number]. Result Comment: [email or web address] Performed By: #### L [id number] #### [facility] ([facility]) [address] [facility] [address] Glucose [Mass/Vol] 144 mg/dL High 70-105 [facility] Comment on above: Order Comment: Waive d Testing in the ED is performed under the ED CLIA certificate #[id number]. Result Comment: [email or web address] Performed By: #### L [id number] #### [facility] ([facility]) [address] [facility] [address] 30on 03-13-2024 30 The patient is Moderately [...] injury: Assess patient frequently for physical needs [place] fall precautions as indicated by assessment Instruct [...] exacerbated and prevent overall improvement and discharge [facility] 30 The patient is Moderately Stable - Low risk of patient condition declining or worsening The patient's goals for the shift include no chest pain The clinical goals for the shift include VSS, stress test Over the shift, the patient did make progress toward the following goals. Stress test positive, heart cath ordered for tomorrow. [facility] 30 Daily Case Managemen t Update Multidisciplinary rounds have been completed. Barriers to Discharge: Pending clinical course and improvement in clinical condition. Patient undergoing echocardiogram and stress test today; pending results. Discharge plan is home when medically ready. Diet: Dietary Orders (From admission, onward) Start Ordered 03/13/24 05 Diet NPO Diet effective now Comments: No exceptions Question: Reason for NPO: Answer: Operation/Procedure 03/13/24522 Physician Expected Discharge Date: 03/16/2024 Discharge Delays: PT Six Click Score: 23 OT Six Click Score: PT Recommendations: OT Recommendations: New Consults: [facility] 30 The patient is Moderately Stable - Low risk of patient condition declining or worsening The patient's goals for the shift include no chest pain The clinical goals for the shift include stable vitals Over the shift, the patient did make progress toward the following goals. Barriers to progression include active acute event with chest pain prior to pt transfer to [facility]. Recommendations to address these barriers include assess pain and encourage pt to express when having pain. Normal [facility] APTTon 03-13-2024 ACTIVATED PARTIAL THROMBOPLASTIN TIME IN PPP BY COAGULATION ASSAY 61.0 Seconds High 25.0-35.0 [facility] Comment on above: Order Comment: Basel ine aPTT before initiating heparin infusion. Result Comment: Clin ical significance of the APTT is questionable in the presence of heparin. Performed By: #### L [id number] ####[facility] ([facility])[address] [place] [address] B-TYPE NATRIURETIC PEPTIDEon 03-13-2024 Natriuretic peptide B (Bld) [Mass/Vol] 65 pg/mL Normal 0-100 [facility] Comment on above: Performed By: #### L [id number] #### [facility] ([facility]) [address] [place] [address] CBCon 03-13-2024 Erythrocyte distribution width (RBC) [Ratio] 14.6 % Normal 11.5-15.0 [facility] Comment on above: Performed By: #### L [id number] ####[facility] ([facility])[address] [place] [address] ERYTHROCYTE MEAN CORPUSCULAR HEMOGLOBIN CONCENTRATION (G/DL) BY AUTOMATED 32.2 g/dL Normal 32.0-35.0 [facility] Comment on above: Performed By: #### L [id number] ####[facility] ([facility])[address] [place] [address] Hematocrit (Bld) [Volume fraction] 36.9 % Low 39.0-55.0 [facility] Comment on above: Performed By: #### L [id number] ####[facility] ([facility])[address] [place] [address] Hemoglobin (Bld) [Mass/Vol] 11.9 g/dL Low 13.0-17.0 [facility] Comment on above: Performed By: #### L [id number] ####[facility] ([facility])[address] [place] [address] MCH (RBC) [Entitic mass] 28.7 pg Normal 27.0-33.0 [facility] Comment on above: Performed By: #### L [id number] ####[facility] ([facility])[address] [place] [address] MCV (RBC) [Entitic vol] 89.1 fL Normal 82.0-98.0 [facility] Comment on above: Performed By: #### L [id number] ####[facility] ([facility])[address] [place] [address] PLATELETS (10*3/UL) IN BLOOD AUTOMATED COUNT 159 10*3/uL Normal 150-400 [facility] Comment on above: Performed By: #### L [id number] ####[facility] ([facility])[address] [place] [address] RBC (Bld) [#/Vol] 4.14 10*6/uL Low 4.20-5.70 [facility] Comment on above: Performed By: #### L [id number] ####[facility] ([facility])[address] [place] [address] WBC (Bld) [#/Vol] 5.62 10*3/uL Normal 4.00-10.60 [facility] Comment on above: Performed By: #### L [id number] ####[facility] ([facility])[address] [place] [address] COMPREHENSIVE METABOLIC PANE Mack 03-13-2024 Albumin [Mass/Vol] 3.8 g/dL Normal 3.5-5.7 [facility] Comment on above: Performed By: #### L [id number] ####[facility] ([facility])[address] [place] [address] ALP [Catalytic activity/Vol] 68 U/L Normal 34-104 [facility] Comment on above: Performed By: #### L [id number] ####[facility] ([facility])[address] [place] [address] ALT [Catalytic activity/Vol] 33 U/L Normal 7-52 [facility] Comment on above: Performed By: #### L [id number] ####[facility] ([facility])[address] [place] [address] Anion gap [Moles/Vol] 11 mmol/L Normal 7-20 [facility] Comment on above: Performed By: #### L [id number] ####[facility] ([facility])[address] [place] [address] AST [Catalytic activity/Vol] 27 U/L Normal 13-39 [facility] Comment on above: Performed By: #### L [id number] ####[facility] ([facility])[address] [place] [address] Bilirubin [Mass/Vol] 0.5 mg/dL Normal 0.3-1.0 [facility] Comment on above: Performed By: #### L [id number] ####[facility] ([facility])[address] [place] [address] Calcium [Mass/Vol] 8.9 mg/dL Normal 8.6-10.3 [facility] Comment on above: Performed By: #### L [id number] ####[facility] ([facility])[address] [place] [address] Chloride [Moles/Vol] 102 mmol/L Normal 98-107 [facility] Comment on above: Performed By: #### L [id number] ####[facility] ([facility])[address] [place] [address] CO2 [Moles/Vol] 30 mmol/L Normal 21-31 [facility] Comment on above: Performed By: #### L [id number] ####[facility] ([facility])[address] [place] [address] Creatinine [Mass/Vol] 0.86 mg/dL Normal 0.70-1.30 [facility] Comment on above: Performed By: #### L [id number] ####[facility] ([facility])[address] [place] [address] GLOMERULAR FILTRATION RATE ML/MIN/1.73 SQ M.PREDICTED 94.3 mL/min/1.73m*2 Normal >60.0 [facility] Comment on above: Result Comment: [facility]???s estimated glomerular filtration rate (eGFR) will [...] of individuals. Performed By: #### L [id number] ####[facility] ([facility])[address] [place] [address] Glucose [Mass/Vol] 144 mg/dL High 70-100 [facility] Comment on above: Performed By: #### L [id number] ####[facility] ([facility])[address] [place] [address] Potassium [Moles/Vol] 3.5 mmol/L Normal 3.5-5.1 [facility] Comment on above: Performed By: #### L [id number] ####[facility] ([facility])[address] [place] [address] Protein [Mass/Vol] 6.5 g/dL Normal 6.0-8.3 [facility] Comment on above: Performed By: #### L [id number] ####[facility] ([facility])[address] [place] [address] Sodium [Moles/Vol] 139 mmol/L Normal 136-145 [facility] Comment on above: Performed By: #### L [id number] ####[facility] ([facility])[address] [place] [address] Urea nitrogen [Mass/Vol] 17 mg/dL Normal 7-25 [facility] Comment on above: Performed By: #### L [id number] ####[facility] ([facility])[address] [place] [address] UREA NITROGEN/CREATININE (MASS RATIO) IN SER/PLAS 19.8 Normal [facility] Comment on above: Performed By: #### L [id number] ####[facility] ([facility])[address] [place], [place] [address] CONSULTon 03-13-2024 CONSULT - Attestation signed by [...] risk factors including hypertension and hyperlipidemia. In [facility] he hide high elevated high-sensitivity troponin of [...] the form of amlodipine. Arnoldo Killian MD, [facility] Cardiology Consult Note Reason for Consult: positive stress test HPI: Eunice Marte is a 68 y.o. male with history of diabetes mellitus, hypertension was referred to our hospital for concerns for NSTEMI the patient was seen in [place] with episodes of chest pain that got [...] disease), CKD (chronic kidney disease), stage III ([facility]), Depression, DM (diabetes mellitus) ([facility]) (2007), Erectile dysfunction, GERD (gastroesophageal reflux disease), H/O deep venous thrombosis, HLD (hyperlipidemia), HTN (hypertension), Myocardial infarction ([facility]) (2021), ALLISON on CPAP, Prostate cancer ([facility]), Status post placement of implantable loop recorder, and Stroke ([facility]) (04/2015). Surgical History He has a past [...] XR (Gl (more content not included)... Normal [facility] FERRITINon 03-13-2024 FERRITIN (NG/ML) IN SER/PLAS 281.0 ng/mL Normal 24.0-336.0 [facility] Comment on above: Performed By: #### L [id number] ####[facility] (BEAKER)[address] [place] [address] FOLATEon 03-13-2024 FOLATE (NG/ML) IN SER/PLAS 9.66 ng/mL Normal 6.6-1000 [facility] Comment on above: Performed By: #### L AB69 ####[facility] ([facility])[address] [place] [address] HPon 03-13-2024 - Attestation signed by Arnoldo Killian MD [...] risk factors including hypertension and hyperlipidemia. In [facility] he hide high elevated high-sensitivity troponin of [...] the form of amlodipine. Arnoldo Killian MD, [facility] Cardiology Consult Note Reason for Consult: positive stress test HPI: Eunice Marte is a 68 y.o. male with history of diabetes mellitus, hypertension was referred to our hospital for concerns for NSTEMI the patient was seen in [place] with episodes of chest pain that got [...] disease), CKD (chronic kidney disease), stage III ([facility]), Depression, DM (diabetes mellitus) ([facility]) (2007), Erectile dysfunction, GERD (gastroesophageal reflux disease), H/O deep venous thrombosis, HLD (hyperlipidemia), HTN (hypertension), Myocardial infarction ([facility]) (2021), ALLISON on CPAP, Prostate cancer ([facility]), Status post placement of implantable loop recorder, and Stroke ([facility]) (04/2015). Surgical History He has a past [...] tablet 11 cholecalciferol (Vitamin D-3) 50 MCG (1999 [place]) tablet Take by mouth in the [...] XR (Gl (more content not included)... Normal [facility] IRON AND TIBCon 03-13-2024 IRON (UG/DL) IN SER/PLAS 95 ug/dL Normal 50-212 [facility] Comment on above: Performed By: #### L [id number] ####[facility] ([facility])[address] [place] [address] IRON BINDING CAPACITY (UG/DL) IN SER/PLAS 271 ug/dL Normal 250-450 [facility] Comment on above: Performed By: #### L [id number] ####[facility] (BEAKER)[address] [place] [address] IRON BINDING CAPACITY.UNSATURATED (UG/DL) IN SER/PLAS 176.0 ug/dL Normal 155.0-355.0 [facility] Comment on above: Performed By: #### L [id number] ####[facility] (BEAKER)[address] [place] [address] IRON SATURATION (%) IN SER/PLAS 35 % Normal 20-50 [facility] Comment on above: Performed By: #### L [id number] ####[facility] (BE[facility]ER)[address] [place] [address] LACTIC ACID WITH 4 HOUR REFL EXon 03-13-2024 LACTATE (MMOL/L) IN SER/PLAS 1.0 mmol/L Normal 0.5-2.2 [facility] Comment on above: Performed By: #### L [id number] #### [facility] ([facility]) [address] [place] [address] MAGNESIUMon 03-13-2024 Magnesium [Mass/Vol] 2.0 mg/dL Normal 1.9-2.7 [facility] Comment on above: Performed By: #### L AB103 ####[facility] ([facility])[address] [place] [address] PHOSPHORUSon 03-13-2024 Magnesium [Mass/Vol] 3.6 mg/dL Normal 2.5-5.0 [facility] Comment on above: Performed By: #### L AB113 #### [facility] ([facility]) [address] [place] [address] PLATELET COUNTon 03-13-2024 PLATELETS (10*3/UL) IN BLOOD AUTOMATED COUNT 171 10*3/uL Normal 150-400 [facility] Comment on above: Performed By: #### L AB301 ####[facility] ([facility])[address] [place] [address] POCT GLUCOSE METER UNSOLICIT ED RESULTSon 03-13-2024 Glucose [Mass/Vol] 196 mg/dL High 70-105 [facility] Comment on above: Order Comment: Waive d Testing in the ED is performed under the ED CLIA certificate #[id number]. Result Comment: [email or web address] Performed By: #### L AB18 #### [facility] ([facility]) [address] [place] [address] Glucose [Mass/Vol] 213 mg/dL High 70-105 [facility] Comment on above: Order Comment: Waive d Testing in the ED is performed under the ED CLIA certificate #[id number]. Result Comment: [email or web address] Performed By: #### L AB18 #### [facility] ([facility]) [address] [place] [address] Prep for Procedureon 024 Prep for Procedure [id number] Eunice Marte 1955 M Date Provider Department Center 03/13/2024 [id number] [facility] HEART UT HeartVAS Family History Problem Relation Age of Onset Heart disease Mother 58 Heart disease Maternal Grandmother Comments: heart trouble Heart disease Maternal Grandfather Comments: heart trouble Family Status - Relation Status Age at Mother Father Mother's Sister Mother's Brother Father's Sister Father's Brother Maternal Grandmother Maternal Grandfather Paternal Grandmother Paternal Grandfather Other Normal [facility] TROPONIN Ion 03-13-2024 Troponin I.cardiac [Mass/Vol] 0.03 ng/mL Normal 0.00-0.04 [facility] Comment on above: Performed By: #### L [id number] #### [facility] ([facility]) [address] [place] [address] Troponin I.cardiac [Mass/Vol] 0.04 ng/mL Normal 0.00-0.04 [facility] Comment on above: Performed By: #### L [id number] ####[facility] ([facility])[address] [place] [address] Troponin I.cardiac [Mass/Vol] 0.03 ng/mL Normal 0.00-0.04 [facility] Comment on above: Performed By: #### L [id number] #### [facility] ([facility]) [address] [place] [address] VITAMIN B12on 03-13-2024 Cobalamin (Vitamin B12) [Mass/Vol] 313 pg/mL Normal 180-914 [facility] Comment on above: Result Comment: REFE RENCE RANGES: 180-914 pg/mL Normal 145-179 pg/mL Indeterminate <145 pg/mL Deficient Performed By: #### L AB18 #### [facility] ([facility]) [address] [place] [address] 36on 02-14-2024 36 Prescription approve d 02/13/2024 through mychart request. Lilia Gonzalez MA Normal [facility] Follow-Upon 02-14-2024 Follow-Up [id number] Eunice Marte 1955 M Date Provider Department Center 02/14/2024 397-PHYLLIS ACOSTA [facility] ONC DCC Family History Problem Relation Age of Onset Heart disease Mother 58 Heart disease Maternal Grandmother Comments: heart trouble Heart disease Maternal Grandfather Comments: heart trouble Family Status - Relation Status Age at Mother Father Mother's Sister Mother's Brother Father's Sister Father's Brother Maternal Grandmother Maternal Grandfather Paternal Grandmother Paternal Grandfather Other Level of Service:57539 MO OFFICE/OUTPATIENT ESTABLISHED LOW MDM 20 MIN Reason for Visit and Comments: Follow-up [024301] - Here for F/U of his prostate CA and to review PSA results. Normal [facility] Labon 02-06-2024 Lab [id number] Eunice Marte 1955 M Date Provider Department Center 02/06/2024 2243-[facility] RESOURCE DCC DRAW [facility] Family History Problem Relation Age of Onset Heart disease Mother 58 Heart disease Maternal Grandmother Comments: heart trouble Heart disease Maternal Grandfather Comments: heart trouble Family Status - Relation Status Age at Mother Father Mother's Sister Mother's Brother Father's Sister Father's Brother Maternal Grandmother Maternal Grandfather Paternal Grandmother Paternal Grandfather Other Normal [facility] PSA, DIAGNOSTICon 02-06-2024 PROSTATE SPECIFIC AG (NG/ML) IN SER/PLAS <0.1 Low 0.4-4 [facility] Comment on above: Order Comment: To be collected in 01/2024 Performed By: #### L AB18 #### [facility] ([facility]) [address] [place] [address] TESTOSTERONEon 02-06-2024 TESTOSTERONE (NG/DL) IN SER/PLAS 11 ng/dL Low 193-740 [facility] Comment on above: Order Comment: To be collected in 01/2024 Result Comment: Test Performed by [facility] [place] [address] - Released 02/06/2024 22:51 Performed By: #### L AB124 #### [facility] [address] [place] [address] Telephoneon 10-31-2023 Telephone [id number] Eunice Marte 1955 M Date Provider Department Center 10/31/2023 Екатерина-OLIVER MARTINEZ RAD ONC DCC Family History Problem Relation Age of Onset Heart disease Mother 58 Heart disease Maternal Grandmother Comments: heart trouble Heart disease Maternal Grandfather Comments: heart trouble Family Status - Relation Status Age at Mother Father Mother's Sister Mother's Brother Father's Sister Father's Brother Maternal Grandmother Maternal Grandfather Paternal Grandmother Paternal Grandfather Other Normal [facility] MLR HEMOGLOBIN A1Con 024 Glucose [Mass/Vol] 189 mg/dL [facility] HbA1c (Bld) [Mass fraction] 8.2 % High 4.5 - 6.2 % [facility] Comment on above: ADA RECOMMENDED LIMI T 4.0 - 6.0 ADA THERAPEUTIC TARGET < 7.0 ACTION SUGGESTED > 7.0 Interpretation and review of laboratory results Abnormal [facility] Follow-Upon 09-20-2023 Follow-Up [id number] Eunice Marte 1955 M Date Provider Department [...] Paternal Grandmother Paternal Grandfather Other Level of Service:01636 MO OFFICE/OUTPATIENT ESTABLISHED LOW MDM 20 MIN Reason for Visit and Comments: Follow-up [095159] - 2 month follow up with PSA and testosterone prior Normal [facility] Pathology Reporton Pathology Report [id number]# 1.00CD:127 Normal [facility] Urology Office/Clinic Noteon 02-03-2023 Urology Office/Clinic Note Chief Complaint Pt is here for 3 month f/u HPI Staff Eunice is a 67 y.o. male here for 3 month follow up. Previous DX: Prostate Cancer, BPH, Nocturia, ED. *Oxybutynin 5mg QD & Myrbetriq 50mg QD therapy. Pt referred to to [facility] for Retzius sparing prostatectomy. Pt saw Dr [...] - 8.2 & 5.0% Prior TRUS/Bx by [facility] 08/2020 was negative MRI prostate 05/26/22 [...] Unsure why seen by 2 Urologists at [facility], notes were reviewed Urology consult Dr. Valdemar Ramos [facility] 11/30/22. Urology oncology consult Dr. Phyllis Acosta [facility] 12/07/22 - plans for [...] prostatectomy/IPP infectio (more content not included)... Normal [facility] Comment on above: Result Comment: Elec tronically Signed By: Dewey COTTO, Milvia Lucia\.br\Date and Time Signed: 02/02/23 23:04 EDT\.br\Electronically Co-Signed By: Gifty Mann\.br\Date and Time Co-Signed: 02/02/23 10:37 EDT Ambulatory Visit Summaryon 0 02-02-2023 Ambulatory Visit Summary ESTUARDOEUNICE Quinton :1955 Visit Date:02/02/2023 Ambulatory Visit Instructions Your [...] bladder) ALLISON (more content not included)... Normal [facility] Patient Educationon 02-03-20 23 Patient [...] to normal prostate cells (well differentiated). ? [place] 7: This indicates that the cancer cells [...] external be (more content not included)... Normal [facility] Provider Letteron 02-02-2023 Provider Letter February 02, 2023 EUNICE MARTE [address] [place] [address] : 1955 To Whom It May Concern, Please excuse above patient from work. Date of Appointments: From: 02/02/2023 To: _ May Return to Work On:02/03/2023 Restrictions: none Comments: [facility] is with patient for all appointments, any question, please call our office Sincerely, [facility] [address], [place] [address] [facility] Screenson 02-02-2023 Screens [id number]# 1.00CD:127 [facility] Screens [id number]# 1.00CD:127 [facility] Consultation Noteon 02-02-20 Consultation Note [id number]#1 .00CD:127 [facility] Consultation Noteon 12-09-19 Consultation Note [id number]#1 .00CD:127 [facility] Ambulatory Visit Summaryon 0 11-03-2022 Ambulatory Visit Summary EUNICE MARTE :1955 Visit Date:11/03/2022 Ambulatory Visit Instructions Your Diagnosis Prostate cancer Enlarged prostate with urinary obstruction Nocturia Erectile dysfunction Tests Performed Urnls Dip Stick Auto w/o Microscopy POC 99092 Your Care Team Attending Physician - Dewey COTTO, Milvia Lucia Primary Care Physician - MARIE COTTO, ADILSON This Is Your Medications List Contact prescribing [...] Milvia Lucia Where: [facility] Patient Educationon 11-04-19 Patient Education Oncology Prostate [...] Are older than age 65. ? Are -Indian. ? Are obese. ? Have a family [...] Follow these instructions at home: ? Take afvs-zis-prxuanh and prescription medicines only as told by [...] cancer specialis (more content not included)... Normal [facility] Urology Office/Clinic Noteon 11-03-2022 Urology Office/Clinic [...] wks recommended if proceeding Was referred to [facility] for retzius sparing prostatectomy consult, has yet to be contacted. Pt still wants to procedure with surgical intervention over radiation. Follow up 2-3 mos or sooner if needed. Pt understands and agrees with plan. -contact [facility], will call pt with update. Pt to call our office if they do not hear from [facility] in 2-3 wks 2. [...] URL, URO (more content not included)... Normal [facility] Comment on above: Result Comment: Elec tronically Signed By: Milvia Palomo MD\.br\Date and Time Signed: 11/03/22 08:40 EDT\.br\Electronically Co-Signed By: Gifty Mann\.br\Date and Time Co-Signed: 11/03/22 08:35 EDT Lab Reportson 10-26-2022 Lab Reports [id number]#1 .00CD:127 Normal [facility] PSA, FREE AND TOTAL RATIOon 10-26-2022 % Free PSA 5.0 % Normal [facility] Comment on above: Result Comment: The [...] Performed By: #### P TT, PT #### [facility] [address] [place] [address] Dr. Marcell Luque Prostate specific Ag [Mass/Vol] 8.2 ng/mL Critically high 0.0-4.0 [facility] Comment on above: Result Comment: Anamika DENIS methodology. . According to the [employer], Serum PSA should decrease and [...] Performed By: #### P TT, PT #### [facility] [address] [place] [address] Dr. Marcell Luque PSA, Free 0.41 ng/mL Normal N/A [facility] Comment on above: Result Comment: Anamika robb ECLKAILYN methodology. Performed By: #### P TT, PT #### [facility] [address] [place] [address] Dr. Marcell Luque Auth for Release of Medical Recordson 10-25-2022 Auth for Release of Medical Records [id number]#1 .00CD:127 Normal [facility] 10-11-2022 Screens [id number] #1.00CD:127 Normal [facility] Screens [id number]#1 .00CD:127 Normal [facility] Ambulatory Visit Summaryon 0 10-06-2022 Ambulatory Visit Summary EUNICE MARTE :1955 Visit Date:10/06/2022 Ambulatory Visit Instructions Your Diagnosis Prostate cancer BPH with urinary obstruction Nocturia Erectile dysfunction Tests Performed Urnls Dip Stick Auto w/o Microscopy POC 51152 Your Care Team Attending Physician - Dewey [...] Palomo MD Where: [facility] Patient Educationon 10-06-19 23 Patient Education Obstetrics [...] 07/25/2013 Document Revised: 03/28/2019 Document Reviewed: 03/28/2019 [employer] Patient Education ? 2020 [employer]. Oncology Brachytherapy for Prostate Cancer Brachytherapy for [...] including vitamins, herbs, eye drops, creams, and vmio-zlb-obqbrhe medicines. ? Any problems you or family [...] drinks that c (more content not included)... [facility] Provider Letteron 10-06-2022 Provider Letter October 06, 2022 EUNICE MARTE [address] [place] [address] EUNICE MARTE 1955 To Whom It May Concern, Please excuse above patient from work. Date of Appointment: From: 10/06/2022 To: May Return to Work On:10/06/2022 Restrictions: Comments: Any questions, please call our office. Sincerely, [facility] [address], [place] [address] [facility] Urology Office/Clinic Noteon 10-06-2022 Urology Office/Clinic Note [...] Hx IPP > 10 yrs ago in [place]. No prior abd surgeries. Hx L5 fusion, [...] pathology: prostate adenocarcinoma Grade group 2 in +11/09 cores , 81% involved (including MARÍA ELENA [...] Gifty Dean (more content not included)... Normal [facility] Comment on above: Result Comment: Elec tronically Signed By: Milvia Palomo MD\.br\Date and Time Signed: 10/06/22 08:48 EST\.br\Electronically Co-Signed By: Gifty Mann\.br\Date and Time Co-Signed: 10/06/22 08:37 EST Lab Reportson 09-27-2022 Lab Reports [id number]#1 .00CD:127 [facility] Reference Lab Reporton 09-27 Reference Lab Report [id number]#1 .00CD:127 [facility] Consultation Noteon 09-24-19 Consultation Note [id number]#1 .00CD:127 [facility] RAD - Pet Scan Reporton RAD - Pet Scan Report [id number]#1 .00CD:127 [facility] Formson 09-10-2022 Forms [id number]#1 .00CD:127 [facility] RAD - CT Reporton 08-20-2022 RAD - CT Report [id number]#1 .00CD:127 [facility] Lab Reportson 08-09-2022 Lab Reports [id number]#1 .00CD:127 [facility] CREATININEon 08-06-2022 Creatinine [Mass/Vol] 0.99 mg/dL Normal 0.70-1.30 [facility] Comment on above: Performed By: #### C MATI #### [facility] [address] [address] [address] Marcell Luque EGFR-AF [place] >60 Normal >=60 [facility] Comment on above: Performed By: #### C MATI #### [facility] [address] [address] [address] Marcell Luque EGFR-NON AF [place] >60 Normal >=60 [facility] Comment on above: Performed By: #### C MATI #### [facility] [address] [place], [place] [address] ABD/PELV W CONon [...] by: SUELLEN MAYO Date: 2022-08-06 16:00 Normal [facility] Physician Orderon 08-05-2022 Physician Order [id number]#1 .00CD:127 Normal [facility] [place] 08-05-2022 Screens [id number]#1 .00CD:127 [facility] Screens [id number]#1 .00CD:127 Normal [facility] Patient Educationon 08-04-20 22 Patient Education Oncology Brachytherapy for Prostate Cancer [...] including vitamins, herbs, eye drops, creams, and wxpd-aso-nhzracy medicines. ? Any problems you or family [...] You w (more content not included)... Normal [facility] Provider Letteron 08-04-2022 Provider Letter August 04, 2022 EUNICE MARTE [address] [place] [address] EUNICE MARTE 1955 To Whom It May Concern, Please excuse above patient from work. Date of Illness: From: 08/04/2022 To: 08/04/2022 May Return to Work On: Restrictions: _ Comments: Sincerely, [facility] [address] [place] [address] Normal [facility] Urology Office/Clinic Noteon 08-04-2022 Urology Office/Clinic [...] cT1c prostate cancer Grade group 2 in 3 cores, iPSA 11.09, PSAD 0.23. (2 IRF) [...] lymph node dissection. I showed him the [facility] calculator which estimate his risk of organ [...] Discussed effects of tx on ED Orders: [facility] External Ambulatory Referral Follow-up With When Contact Information Dewey COTTO, Milvia Lucia, URL, URO Within 1 month Additional Instructions: Discuss PSMA PET scan & treatment options Patient Education Brachytherapy for Prostate Cancer IGood (more content not included)... Normal [facility] Comment on above: Result Comment: Elec tronically Signed By: Dewey COTTO, Milvia Polo.br\Date and Time Signed: 08/04/22 10:53 EST Reminderson 08-03-2022 Reminders - From: Lulu Peralta LPN To: N - Clinical; Sent: 08/03/2022 14:08:01 EST Show up: 06/20/2032 07:00:00 EDT Subject: colonoscopy recall Due Date/Time: 07/21/2032 07:00:00 EST Reminder/Recall Patient is due for screening colonoscopy 07/21/2032. [facility] Auth for Release of Medical Recordson 07-29-2022 Auth for Release of Medical Records [id number]#1 .00CD:127 [facility] Pathology Noteon 07-26-2022 Pathology Note [id number]#1 .00CD:127 [facility] Outside Colonoscopyon 2021 Outside Colonoscopy [id number]#1 .00CD:127 [facility] Lab Reportson 07-19-2022 Lab Reports [id number]#1 .00CD:127 [facility] Covid-19 PCR ([facility] [facility] [employer]on 06-23 SARS-CoV-2 (COVID-19) RNA NISHANT+probe Ql (Unsp spec) Not detected Normal NOT DETECTED [facility] Comment on above: Result Comment: When diagnostic [...] for this test is supported by the [place] of Health and Human Service's declaration that [...] Performed By: #### P TT, PT #### [facility] [address] [place] [address] Dr. Marcell Luque IntraOperative Documentson 1 09-11-2021 IntraOperative Documents [id number]# 1.00CD:127 [facility] Coding Summary.on 07-09-2022 Coding Summary. CD:[id number]:[id number] G h0bWw+PGhlYWQ+LE5TWFP vZ48ymHOezQ7FE0vLHQ8I ZYEZJAGUTP7AWN9miZR0S YhrA6ZovgZq ZlhisDNgSH67DCx8HJD2t VnxGXvtjJ7wrWEaS3j8Ay ZwEF96iZ08JBeuHLSsOoZ 3LjZpbjsgbWFy T9lzKgCnaPOiYxa+PHRhY mxlIHdpZHRoPScxMDAlJy UplAroDO2fAr5bRTEaLIW vbGxhcHNlOiBj i9dvLEYmLWxnEI7foUfyN 7AjxSD4OBYhd7p5Yt84yO I+CMOjMGM7jDpgOBwpk90 8RrNwq2pyXIH6 wKLaLHnpLRV2W34hq0D6T POuNFJiFFW7lWC2zC8yxS hkipvqJ8UruMGfXtG9IFY 9qEFnoJ7gmKmi byloeB2oDaw+Y43TJP1KD SOOHD9FBpa0Z0SqDjitvD I+KO43YKSrTI21lYOlzCV kp7iugAu9KdXp BDCrLLL5nIlsFXrcm5EeN JKhJ70bdFYha4P7GDCouR lrkEWuFiSxqFX5hP5sKWx wizbmi4supsob Jbpfc2yzce46rB56W59hS McmOEPbKKK9JVMcTBHqpZ gajm6nzN6zVz9+ZXnwr1q cz4bsxXq6IsJk JLVeyyTdxMzqACG0n0GlG m64N6AivDper8AeKoi5nz 35kLWlb5T3rYF8UGydXGO wcW0vBImsAxP3 EDHxWbYnsK91fUBkJHsfR d0srToofRhfGB3yJLRhsm msBSKejQ7vKOJzpGNhrLe yAX9jBJOhvaqc j836CgRhQYW8KCInoPNaL 8LgoW4aShEuYUFzYAKdQ2 SakTVkYSimG410HMcyYtY 7DGVklcPfJ2Lm YGKtjJfqVaT9b0O8Hz4Dk 7HodhuiFCV8KIvfORGxJh B1MhYpNgX4K9NkMcw3ONN pbQnpCF3dB6Vt OXTskdscpprexGM3CWLvB JZkiK45hVSfGNwxSp3yh1 V5x201EGQnNDNzmO87Nv2 udDogMTBwdCBU oJ7bycpts9kgdpuhCdLiG GBlKJg2RLb1VXRkyRnjTa WxALO3VjF6LNJ6vLGpuB1 abNoujklooC7p Oyc+L07vfD5iSSJ8QIO5f gccINKwyaNvIX63DR44N1 RyPjwvdGFibGU+PGRpdiB ydUcyNW1wCjNm p7dfd5IlLMxcH4TaARFkQ TtyNdy3YSIrTYN9bJQ0mE 1lGPDhSFrak8K8mLE8E5Q orkFnii4gk2eu VZEdSSatR41zuPNer9J9F PImiOJ1VPQesIpnItMvwW 93Oyc+NELksIxwm0RbHvv yg1mxq9ibgEk1 VrPrYEHstmLeeHurUHS4s 8ZiWh76F83nGKbhTJFdCA WkSFCjWYXfcAacfu1qfX7 wIi8+PGNvbCB3 gFT6fE4zXEPzTgI7ZNkeL 226TyKyqRFjJujsj5lsz3 shmAn6CiRsVGJblbGgfGo pGMN5b6WfWq58 H04hDDrjNGLmPIOhSXIpF HHwjHztyi9fuO2uIc4+PC 7gs9urgk80xH12eLM+PHR qUMY4kKrqYFau OZPbnY7xVYqiDqG7FUWsL pRhmV25oLQsEJqyPz0wuO oasXpsRX7vKCIugegzm71 5YuMyy5xiMWCq tURtACieBCR8L15rj6K8T KKpDLUaZUL8xPY7bM4xfV lnbjogbGVmdDsgdmVydGl nFCdqKYnxK773 IHRvcDsnPlBhdGllbnQgT wRsXTi2I6SiLqt5KXBrfF xoDV6xfVPmEOjwYb5rrEy nhAliNR4wKDPc eqnpv640WhBdj5czXYKex CWnDYleIFN7G89ji6R7IQ OvHFAqLWQ9zPZ2oU6huSl nbjogbGVmdDsg goFxyXsgWKiqFAglL407R HRvcDsnPkJpcnRoIERhdG D9WU85GT83lXCgo2T9hFC 7Z2QnHIAvnkig msnjiSD3TASmCFQdmH39N d7maRsfMz8oUKExAQN9ZY TamCFkC0IkbD3aIkNuHZB sFIHuU4RdjCKo LPqlJ990HRakVxH9DVRne mPlL8TuMUFcdXmwGwG5b0 H4Qg1QB9Z3WJ50BX36bTZ vd9I1hTQ8Z9Fz OMVejrpoebjbgOC1DANtT HMitQ00Dx2oaFqxQt8uOO JrEXI3DCDnmHDuG3IwfS9 yOiAjMDAwMDAw V1LqzGPuFWmcD924BZedM qJ2TQGhlkDmB3JxKCTspP gbErK1e1T4Vu0MHOt9BB7 4QI53fVLdd9Z4 gEU7J0TsQANxdhzoyzhiv OT0LQVpWRAvaW93Zq7bsP moPp2vSXTiMDF0KJMayYI gH6PpyI5jDmJi XNAeTIEeJ9YiiJEiUVmrH 734TVdhRrG8MJPignXaN9 KaQDUigZiuFmY5y0W2Ag0 BNPHtCS40KKT5 oAZ1CZ73FY16J5UgLshfy GFibGU+PHRhYmxlIHdpZH RoPScxMDAlJyBzdHlsZT0 gQm3sOYDaFFSw rXhtgCXxJhBqq6ilBIXzR DriGX8wmQpqP2YmrSM8KK Rhn7v6Bd33Q23qM2XecBF +EEQsoHB2uUO0 cC3sKgQkXvJ5DNgkW239N nUtaMKrYskey7enr9hsaH d8WtG2NQQucbNmfBewOXF 7s4YdMg29V37m IHdpZHRoPSIxNSUiIHZhb Tnuwy9kmM0cYg4+PGNvbC D6sKR0qY4sBbJiIwQ5HNq pV455MpNtwEIe Wuggd2unv6gpoIv1CgHnX RYjrzZorWzjZGV9a2AaLx 93P8ZglBkqn6DsNto2ka7 7pLCek3I5iGE5 R0YjFWVrturcqMIrrEfcK K7tJPDdpxxcQAAigC3zEA SdX2w1AbIyAnN6YQpoI8L walJ6VLMaiCCd URgtZLI4E47zm5Y6FAAeZ DDqRHP4cDX0mR2kaBehxr ogbGVmdDsgdmVydGljYWw dRIzeX132OTMy tMreRIWfkA1aSTRmhZDsn WoeMR8zQQLuryxnXdzGJK RFTEJVUkcsIEpBTUVTIFI 0E6QsQwq8TMCe zUzmVL1cwJEnNBtpMb6jx QiaeQjjRD4eSBStocquQW KjzW8uNLTztEZmqZkeIY0 aJYTmcvgqv074 CwZsXKG1URCzhMRsI1Jds W2jMhOfBRYvFEWrQ5LhkB JoAMkjM908SDyiIeN1BSV sgqQzC2XwKPAq kQhfMiP5k7A8Do7aHg5aR K5rLZE9BG01GY62cASfa7 A3nAU2B6EwTYXrvuctivg ytPN1PSQaPJTj oH69wIShCKglRc4fy6Q7q 655UVAgWLZjlV84Nt0nuU yhJYVcaXXPcA3okmdwo1b vcjogIzAwMDAw CKf5NOu1ZBJbcVxdUoDkD IP8QkO4DKO4nRAydZ1cgF vrxwdltE2dTrb+NjYgWWV nucX5P4YjXue7 HMZenJrlPW8osBQvVFayS d0leDfkeNmjXA6bBWLrxh xiCKPriA0rKXEquTJpkJw vCC0nERIwdoed u155ObClNTR4RYFaqYApU 8HzbG0oInOlJVThKQFsJ4 IciIVjOIbwC884DCwdLkR 3AMYycdRhP2Rv XIEuvOykBoO1a8Q5Nx0ED JybHZ81AB28dBDie8H4uI I2I8PhCBEuvjmootsqcJE 8LVSsFFTznZ72 kRRhYKxtNe3uh1A5c611P VVpZDBmcH21La2jfUtrJT TquABIhB1xatibs8jveqv gIzAwMDAwMDt0 FOg8CTXcvDshXdUrPVL4O oM9TDQ9yXQafB7ugEdonc mjsP6iGoc+LT8urRbvkC5 ofX0MVD3zSARh cYZRsCXkAMN7OX51PU84N 3RyPjwvdGFibGU+PHRhYm xlIHdpZHRoPScxMDAlJyB oxJabLD9mPy0y ZGVyLWNvbGxhcHNlOiBjb 9xhJGEzHIpxGL4tgAsrE2 SjaEB6XCHfj3j8Hm74O07 dR2DhpDN+PGNv xMJ8hRK7wY4lCvEkTsM2X HtmE445NkFxvFLaVvbdd1 ixk5uhcMj2ZmMvZMIxhsB fiFuvADQ6u4Kt Dk94E24dYBqdKEXeGWEwA ZUqPHMdjQchtu3wiD2rXv 8+GBIvvLR6pQD1sY5kBkL qRrH1VGpbC713 WkZlhYFgMebbK17eE5Gwv XA+ZEMkYpz3MGRdfMwaCD 5siOUrRSdkVw5pBXK5QgR dSkSbAYohE7Zi KBZevrwgmzfkvDY5PVWpK XUigS14Uh4vtZktEi1wSI HaPRW9NPNvtPZgH9FymA1 yOiAjMDAwMDAw N6AeaUYjLIjzT617HDmgM xR3VHMxggUxZ6XtFLZmyU fiDbX9m9W0Yj4MhTfyxPU wIU8sNtCiMNr4 M4GlRwh2AGHxqZvkDL6td IJeJPwtOa3naYojfKnkAT 0hLYAnpguda835XyEvx0q kIDEwcHQgVGlt XQQ3W39fm6G4VGJmIFKoR ED5cGN6fR2vjQmgngcgjL VmdDsgdmVydGljYWwtYWx fM717UUPzzCto UnOGLsl4W5ZlNfs4RLKav HivWO0xlMTyKCvzBg4stG sznDeuQI4iQTRldbras48 6MvRwy9ppOXBu qQIiTUfpPKG4C74fm0Q3E GHqLJWtBRR9zHB5oW6cfV lnbjogbGVmdDsgdmVydGl jHZxhENqiU598 TWVyjGyqMa0HHee3Y1CfX rd1QKJomEjiAN5ysIEjWS jhRv9kkAcjpJlpCT2nDQW lgferp503XbXi i0yjYZHbyWSaTBbkSZH5L 04rg3B3NYArYPEmZVD9wW F5dU7enCrkozmicWDxqSy gdmVydGljYWwt RNhrI090NNTfbVydKzViu WVyOjwvdGQ+VR82kr70Z6 BnAmdgSls3VXZlVQP5wTM 4lF1lCSOuDGuy c3R5 (more content not included)... [facility] Main OR Intraoperative Recor don 07-09-2022 Main OR Intraoperative Record IntraOp Document Type FT Summary Primary Physician: Milvia Palomo MD Finalized Date/Time: 07/09/22 13:38:52 Pt. Name: EUNICE MARTE/Sex: 1955 Male Med Rec #: [id number] Physician: Milvia Palomo MD Financial #: [id number] Pt. Type: A Room/Bed: [facility]12/20 Admit/Disch: 07/06/22 10:08:27 - 07/06/22 17:20:00 Institution: [...] Entry 3 Case Attendee Adams Blanco DO, Socut Palomo MD, Milvia Correa DIGITAL MEDIA DESIGNER, Mahsa Johnson Role Performed Anesthesiologist of Surgeon [...] Erik Lynn RN, Kimberly Y Role Performed Rectifying Operator - Primary Rectifying Operator - Primary Time In 07/06/22 14:55:00 07/06/22 14:55:00 Time Out 07/06/22 15:17:00 07/06/22 15:47:00 Procedure PROSTATE TRANSPERINEAL PROSTATE TRANSPERINEAL BIOPSY WITH ULTRA(.) BIOPSY WITH ULTRA(.) Comments ORIENTING PRECEPTING Last Modified By: June Pandey RN, RN, Kimberly Y 07/06/22 15:47:47 07/06/22 15:47:47 General Comments: PADMINI Leonard FORTRY REPQuinton NAIK - PERINEOLOGIC REP. JOSEPH, associate professor of biblical studies Protocols FT Pre-Care Text: Implements protective measures [...] Yes Time Out Scout Lamas Jr., DO, Dewey COTTO, Milvia Lucia, Sunny COOMBS, Shane Bell Terry T, June Pandey RN Time Out [...] and tissue Entry 1 Skin Integrity Intact, [place], Warm, and Skin Abnormality No Dry Outcomes Met? Yes Last Modified By: Erik Lynn 07/06/22 15:10:56 Post-Care Text: The patient is free from signs and symptoms of injury caused by extraneous objects Patient Positioning FT Pre-Care Text: Identifies physical alterations that require additional precautions for procedure-specific positioning, verifies presence of pr (more content not included)... [facility] Postoperative Documentson Postoperative Documents [id number]#1 .00CD:127 Normal [facility] Coding Summary.on 07-07-2022 Coding Summary. CD:[id number]:[id number] G h0bWw+PGhlYWQ+HX0WYJD oP93abQWzwK3BE8qKWM4S GOGMCFUYOP0GVV6swTI7B DqwI4CdymEv TkpqlTJwXO16YEr1GPF0r NjfTNnxjT9ygRXlS2p8Xx ZjGG32pQ65DIgeTDGhEtT 3LjZpbjsgbWFy C9oeOrDvtSEtCvi+PHRhY mxlIHdpZHRoPScxMDAlJy LzbNlxJG5eCf4zIZQoQJJ vbGxhcHNlOiBj p3eiZZCoFZpsHG6ijImvN 6AnkKC9UDBgc9k9Tz24qQ I+RAPdGUM7fPwyCDuni22 4ExVux4doCRW4 ySInLAqkVZU1X66in2R5V XBaQRNqEFT3jAO0oL3bwK cytsouB7EzbTDiZvQ9NWZ 0pPWtrV8cyKnt gyfidQ5lOfm+B05SLS1OS YZDFV2CZwd3S5RdDvudmJ I+SF86IJDyHN65qKEjeNN bp0alfWl4FwSr IYCkBZP0eOipEJcol4TiK UWmC00yvGGtc7K9UBNqgK tvuSUfMsDjvEV5lR3cZQt kwkhav4koxzcj Kqfzl6dyfh89eK35C08iS KcvTRCeHLS5JCReKGHzlG vrtk2fzB2uNw6+EUwsb3k fp0ykwZc2NqKi DFQajjWdiHkrCRN9j6IeI s36Y0SqmJbfu8CyOjz6bo 33bZMtb1M2cPM0RByvYBM kwB8dRXikLaR5 HZKdNyDmxL17cNQaYIitE a8hcFvpmBwyAW7qOYKpsp sgMVPkpB8lAFUqsWGkqJu nPH0vFVUjigdy w228DeKgHIT6IAFmjPQaM 1VekG7qOoYiHSPtZUNwC2 QyiCMfIAvsZ968JDypQcD 2KPGdvzCxD5Im FCJscCemPuV8g4S7Jn6Jz 9DprggkENB7OHcvARUeAf J5BtDuSvL5R4PeExb5DZG hiPfvMV0zY1Tz DSBegufonucvaXV9LYEvY APuuY46zYQoHBxfFa5uo8 E7j042YSYvQUMwgA66Pm2 udDogMTBwdCBU cZ5fogyxb6wwnegsSzZgF EVrKFj1YPu3XUEuqJoqMj BgPVP2MpU0URA3bHStuN9 vtWkwubcxnP7v Oyc+M95wrS0xTAH9GUF6s bneVKMlhjFbUE77XP35T8 RyPjwvdGFibGU+PGRpdiB saKuaYX6fNoVk s0spn1VrSKlzW1KwQJOvG EbyVxu1IBCaJTX1lME2uV 7aVESsDBbdj0N2gWG1V7Q uzxDtgg4ur7vb JRAuSFkqV05dkIEgp2G1G ELfvLH1NBDrfRvlWwPzaW 93Oyc+PMRaeAwrf7VgYsy yv5usf1eruAb4 VoQdBEZxhlUjmKhuMUM1w 5BoUd49C79hBXzaXEWuWC SgISUzLLOceQlqma2ucX1 wIi8+PGNvbCB3 dFT4qR8nJLNfWvA6FVogD 879JqVtlWHzIfnhd0ubi2 xqgUq0MzCsCHTyzaMntWu kCGJ4a5UnFd77 I83jPNqmYMPqAZPjUEPyG SDdhUvpux8scH8sFn6+PC 2na7eglo26mZ85tLV+PHR uABT0iGvmBBhk FYPyoM7rBYklCyQ3WPNdY lBkzR02nUWgGEwbGv9xbU bfzThqZO4cCYRqrwqiw12 6YaZuh9rhYUPu qBEhLMctTZA2H72je1N6B PCaFIFtQMF3cAJ5pO1brU lnbjogbGVmdDsgdmVydGl jXKurWNccJ864 IHRvcDsnPlBhdGllbnQgT gAdZDx4X2XdKza1FIAfwN qzXV3neYIkRXldQj2gdBp kwUpgDH4oBKPu gickp898VkAiz4zvHLPfe SEqPYzrPGC6C54ti3W1CU TtQMUmOND2vGG3jI9ygXc nbjogbGVmdDsg rzBbrHjsTBltWAwfP396D HRvcDsnPkJpcnRoIERhdG F4NP24PB31sAPnk1J7wBR 2J9XiNYZnpnjt kjwuiPV0UXFiMIRxoB19K y5dlSahFo1zHPMjXRQ0MI KsoMWbI4VxcI3pTqQzHFU aCRPsH3XxzHMo DKhfC321ROsjGdH0EIFwa vFlE2EfWCSvcSfiWxY4j6 H6Mr0MO8K1LJ69LL88kCS dn8R1rGL4A8Zg PTAvynkunadkyCH9WHRsX SQmyA12Cm8kbUhlLg9rGA GySAL5VLIbhXDmF3ElfG1 yOiAjMDAwMDAw P5YgwFKwZDryP719KQnyU uR0EWCndzHqO1ZpJDEuyS mzGzT1q5F2Kn4DYIj4RQ2 4IV93sDRnu3H8 uRQ9W8IzYLQpypjsrjtjw WO5SSBcDLTjeZ74Ct1fsR oyUf3xHMFzAFB8XUKdhHA kA6EivH2hIuEt DGYqOTFuK6TdkOCtGOvmW 430NOepCwT2SBLzlcNhO5 LlSNCaiEotEyS2x8J7Rp5 WJSDyZQ67DSG5 nUS4EB49ZQ35T4XwEskhz GFibGU+PHRhYmxlIHdpZH RoPScxMDAlJyBzdHlsZT0 cDv9mCVXbZWMu sMvacOVaDoEdm4mtDRMpH WwzMK1edYkzB3FmoQY1MU Isx5i3Vl61D44wM3MpiUJ +BCOjqCI2sKE3 jQ7gAkUpMiV0LUdhY167C uZsgVCrVuljy5epe8rnuQ o2FgZ0KPGhdtEodHneAVF 5p5QsLe52I44c IHdpZHRoPSIxNSUiIHZhb Plcwc0myN9sEt5+PGNvbC G3tVU5bE6fJwBxRjH9GAw lR430WtOpqOTm Ftpkd7fqv0pmhHh4YmRsS DYnkdTaeHitEDS4d0LoVa 80K4MlfTghv6VnGug7xy2 6lNQjm1Q0eSY6 B3FbRPIsayvxwFAqdYrgW U1dEJOszpceDDUidF5nNJ QkJ2e0LvXvMfV0YIgwP9Q vkeR3JKBncTGz DPkiZVF2F08tc6N9OAPvJ YVdKRQ1tER2pV9wmUhjfy ogbGVmdDsgdmVydGljYWw yNSvoN577EWQv nZfeVPFiqH2sIJXpfILak WpyYI9qJLKfjmjkUisUSL RFTEJVUkcsIEpBTUVTIFI 5G5BePph3ASFo sKpuQU8wdSRyFQxaQo1oa WxtiNrwVD8dJVHpbonrVO WnqE1jHWOryOSxqUsiFB0 sGBZddxpxo803 KgAoLZS2DPOckUXcO4Bet L7wGwHzDIFgPOGxZ6RigZ WnXRcmE298JIwaTtP0SFH eqyOkF5KtZGIw tToxWqX8p5U2Ew6lUk6pS D6eFCX7HI99BQ91vOJnf3 E1nZQ6W2XxLOLztzddjzj yhQY6YNDyHIHp xS05dDHzWWohQh0zt3X4d 612YODiLLGsmI71Le8fmC lkHROraKHQyW5pegzmq2r vcjogIzAwMDAw BEo0ADm3SGJgpGsbPwJcQ BD8YcV1HXK6eLXqbD9ilV rbrdnnbE5lVtq+NjYgWWV qmrI0I4ZpCcd6 YVCcrWhnGW5ucTGgATxtL t6hoQlcgGewJB2mCHXjxq csJCDhuZ2vRBXjqVJbzWb kID9eLKOrsiaq z859XwMuGKX6XUHonNRpM 5EgpP6bSeEoTLJqMCNjQ3 HbuEUkJMjsL769PTcqXfZ 4GONzbbJsP1Lu DVVibOnnHwX5e6Z7Dy4AF MjlCK52NB27fGFrk4H5bW E3S6IfTDSnewkqlwlhhKX 4AIAxCSXgcC35 pHKoJZxhBe5wt6F9g050G AOcZVVjaP31Ri9ofSmeJV BmnPZCiR7asgunn7ovice gIzAwMDAwMDt0 CPs3FCQbjAhoBjBpBFN2N jI5STC9fFXgrB7eeEhebw uvtQ2dKyu+Q6Z7dWY7rDO udDwvdGQ+PC90 hc41T3RmZjoxMzg2BGWaH PJ5gEK0kG8lKMIcUQjcl8 E9lVM5O9MkblTlei0oj3h hNDEzUPyeV05h qBNdl6A8YTCetZQ0BOMme ZyjTyJitI62Szh+PGNvbG aol3SjZgcxo9vza0xioCw 9IjMwJSIgdmFs uHkvARZ3v1NaXr18Z48nL HdpZHRoPSIzMCUiIHZhbG msto3nkK3oCj9+PGNvbCB 8fFV0lA0sLdBp ZeA2SHchW226EiOmmSVqB dmqb2pzj1yhvXy5VxUiGE EshzVfgFvsDKZ7q4PvYo0 3J3NtpItvb1Om Zri6pc48lCCej2B7yDV2N 3BhZGRpbmctbGVmdDogMC 1nPPFgbdgdCNFmqJ5nSAF lR7g2GmWfOcQ6 JVthP2JetiW2PLYqzPCnN PKgrQPWxX5uzgmft8nymd qcGrZgWNHgROk1PCr1RNV saWduOiBsZWZ0 JxK4HRS5uLAexD6fhJrie anyeB3aOjz+WVe4w5givN PuMB8blCZ0FR18PH78xYQ og1F7qNW3S1Uz WDZmljohxhqpsSN4RQJhB KXgwR48Xc8tfMbpUs8nKA HiNXR2NMGblPSyR7XzfF1 yOiAjMDAwMDAw Q7ZawMWxIPjgQ045ZPseI tD8QYJoizMdX5LsYVYkdY oxBtO7j5G5Co6ADT64IY0 9QM57cMNgt4T3 nEN5E3MfAPQfrqxyehadw SU0ZWJfQJGivX58Tp3peL rlCp0mFWBfMEO8QIHyiBR yO5QnpO4lTuVr SWEwJDJfN9WcjQJgFDbsY 837JKgxJqK7WDJgumWsT7 EpHTHyoNjxTeB2j2W5Cv0 NYf60SD28VH34 zKSod5M9vUE3A6TgCTLwr yeaangryWM3JEGsJLFakV 58Ao2rnVbfNk8uDLDiBOT 5POEagIFrQ6Lj wG5zJtTpPEQfIBOiT6Mvx GIxVRtgB724IXwtEwH4CU MrqnDzJ1GiRRGsoLrnLoF 0h5E1Dt3SSUga gsk2U8FwNinrsBP+PC90Y WEyHX32dBTbrUQhr8bseP j1FwAcGYRiXTB5iKxrYMr tv2MnHBIeH90h bGFw (more content not included)... [facility] Consent for Anesthesiaon Consent for Anesthesia [id number]# 1.00CD:127 [facility] Consent for Procedure/Surger yon 07-07-2022 Consent for Procedure/Surgery [id number]# 1.00CD:127 [facility] Discharge Instructionson Discharge Instructions [id number]# 1.00CD:127 [facility] IntraOperative Documentson 09-06-2021 IntraOperative Documents [id number]# 1.00CD:127 [facility] IntraOperative Documents [id number]# 1.00CD:127 [facility] Preoperative Documentson Preoperative Documents [id number]# 1.00CD:127 [facility] Preoperative Documents [id number]# 1.00CD:127 [facility] Prescriptions/Work Noteson 09-06-2021 Prescriptions/Work Notes [id number]# 1.00CD:127 [facility] Capillary Glucose POCon 06-22 Glucose [Mass/Vol] 216 mg/dL [facility] Comment on above: Result Comment: Jluis luna RN/ Performed By: #### 2 [id number] ####[facility] [id number] [place] [address] Glucose [Mass/Vol] 233 mg/dL [facility] Comment on above: Result Comment: Jluis luna RN/ Performed By: #### 2 [id number] ####[facility] [address] [place] [address] Glucose Cap <20 Abnormal [facility] Comment on above: Result Comment: Repe at Test Performed By: #### 2 [id number] ####[facility] [address] [place] [address] Consent for Treatmenton 06-22 Consent for Treatment [id number]#1 .00CD:127 Normal [facility] H&P Updateon 07-06-2022 H&P Update [id number]#1 .00CD:127 Normal [facility] Inpatient Patient Summaryon 07-06-2022 Inpatient Patient Summary [place] [id number] [facility] Clinical Discharge Instructions PERSON INFORMATION Name: EUNICE [...] When: Milvia Palomo [address] [place] [address] [phone] Business (1) [address] [facility], [facility] [address] [place] [address] [phone] Business (1) Comments: Office to followup appointment in 2 weeks for pathology review Type Location Start Finish [facility] 9[facility]30 AM 07/21/2022 9:45 AM Confirmed URO Office Visit [facility] Sujey 10/12/2022 10:30 AM 10/12/2022 10:45 AM [...] needed Other (see comment)., skin Comment: Normal [facility] Laboratory - Chemistry and C hemistry - challengeOrdered By: Lab CHERUser on 07-06-2022 Glucose [Mass/Vol] 216 mg/dL High 55 - 99 mg/dL [facility] POC Subsection Comment on above: Result Comment: Jluis luna RN/MD Glucose [Mass/Vol] 233 mg/dL High 55 - 99 mg/dL [facility] C POC Subsection Comment on above: Result Comment: Jluis luna RN/ Glucose [Mass/Vol] mg/dL Invalid Interpretation Code 55 - 99 mg/dL [facility] [place] Subsection Comment on above: Result Comment: Repe at Test Main OR PACU I Recordon 06-22 Main OR PACU I Record PACU Phase I Docum ent Type FT Summary Primary Physician: Milvia Palomo MD Finalized Date/Time: 07/06/22 16:28:27 Pt. Name: ESTUARDOEUNICE/Sex: 1955 Male Med Rec #: [id number] Physician: Milvia Palomo MD Financial #: [id number] Pt. Type: A Room/Bed: [place] [address] Admit/Disch: 07/06/22 10:08:27 - Institution: Case Times [...] By: Chen Ramos RN 07/06/22 16:28 Normal [facility] Main OR PACU II Recordon Main OR PACU II Record PACU Phase II Document Type FT Summary Primary Physician: Milvia Palomo MD Finalized Date/Time: 07/06/22 17:20:35 Pt. Name: EUNICE MARTE/Sex: 1955 Male Med Rec #: [id number] Physician: Milvia Palomo MD Financial #: [id number] Pt. Type: A Room/Bed: [place] [address] Admit/Disch: 07/06/22 10:08:27 - Institution: Case Times [...] By: Yissel Arellano RN 07/06/22 17:20 Normal [facility] Main OR Preoperative Recordo n 07-06-2022 Main OR Preoperative Record PreOp Document Type FT Summary Primary Physician: Milvia Palomo MD Finalized Date/Time: 07/06/22 15:10:00 Pt. Name: EUNICE MARTE /Sex: 1955 Male Med Rec #: [id number] Physician: Milvia Palomo MD Financial #: [id number] Pt. Type: A Room/Bed: [facility] Admit/Disch: 07/06/22 10:08:27 - Institution: Case Times [...] Signed By: Erik Lynn 07/06/22 15:10 Normal [facility] Monitor Recordon 07-06-2022 Monitor Record [id number]# 1.00CD:127 Normal [facility] No Panel InformationOrdered By: Lab CHERUser on 07-06-2022 POC Device SN [id number] Invalid Interpretation Code [facility] [place] Subsection POC User ID [id number] Invalid Interpretation Code [facility] Subsection POC Username SD TANNER Invalid Interpretation Code [facility] Subsection POC Device SN [id number] Invalid Interpretation Code [facility] Subsection POC User ID [id number] Invalid Interpretation Code [facility] Subsection POC Username SD TANNER Invalid Interpretation Code [facility] Subsection POC Device SN [id number] Invalid Interpretation Code [facility] Subsection POC User ID [id number] Invalid Interpretation Code [facility] Subsection POC Username SD TANNER Invalid Interpretation Code [facility] Subsection Operative Reporton Operative Report Patient: EUNICE MARTE Age: 66 [...] perineum is prepped with Betadine solution. The vocaltap UroNav fusion biopsy system was set up [...] . Impression and Plan Diagnosis Elevated PSA (EQH96-LM R97.20, Discharge, Medical). Diagnosis Elevated PSA ([id number]-FF R97.20, Discharge, Medical). Counseled: Patient, Family. Normal [facility] Comment on above: Result Comment: Elec tronically Signed By: Dewey COTTO, Milvia Lucia\.kong\Date and Time Signed: 07/06/22 16:17 EST Outpatient Surgery Discharge Instructionon 07-06-2022 Outpatient Surgery Discharge Instruction [place] [id number] Patient Discharge Instructions PERSON INFORMATION Name: EUNICE [...] THE NEAREST EMERGENCY ROOM OR CALL 911 IESTUARDO JAMES R, have received the attached patient education materials/instruction s and have verbalized understanding: May we do a follow up call? Yes No I was present when discharge instructions were given Patient Signature Date Clinican/Nurse Signature Date Follow up: With: Address: When: Milvia Dewey [address] [place] [address] [phone] Business (1) [facility] [address], [address] [address] [phone] Business (1) Comments: Office to followup appointment in 2 weeks for pathology review Type Location Start Finish State URO Office Visit [facility] 07/21/2022 9:30 AM 07/21/2022 9:45 AM Confirmed URO Office Visit [facility] 10/12/2022 10:30 AM 10/12/2022 10:45 AM Confirmed [...] to serve you. Thank you for choosing [facility] HERE ARE THE MEDICATION CHANGES THAT [...] Tylenol alte (more content not included)... Normal [facility] Patient Education - Texton 1 09-05-2021 [...] for your post-operative appointment in 1-2 weeks [phone] or [phone] Normal [facility] Progress Note-Nurseon 2021 Progress Note-Nurse In [...] out of the anesthesia guideline protocol. Normal [facility] Progress Note-Physicianon Progress Note-Physician Patient: EUNICE MARTE Age: 66 years Sex: Male : 1955 Associated Diagnoses: None Author: Scout Lamas Jr., DO Postoperative Information Post Operative Note: Post Anesthesia Care Unit. Anesthetic utilized: General. Health Status Allergies: Allergic Reactions (Selected) Moderate Penicillin- Unknown. Severity Not Documented Labetalol- Unknown (origin). 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 Elevated PSA / SNOMED CT 2222082448 / Confirmed Eosinophilia / SNOMED CT 1065352260 / Confirmed Erectile dysfunction / SNOMED CT 1571400264 / Confirmed GERD (gastroesophageal reflux disease) / SNOMED CT 703606860 / Confirmed Hyperlipemia / SNOMED CT 39535433 / Confirmed Hypertension / SNOMED CT 0936942773 / Confirmed Incontinence of urine / SNOMED CT 8658801049 / Confirmed 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 Plan Transfer/ Discharge: Condition stable. Normal [facility] Comment on above: Result Comment: Elec [...] Daily, # 30 tab(s), Refills(s) 6, Pharmacy: [facility], 183, cm, 04/21/22 11:40:00 [...] 0 Histories Past Medical History: Resolved Stroke (555164879): Resolved. History of CVA (cerebrovascular accident) (5366704720): Resolved. History of DVT (deep vein thrombosis) (2641718299): Resolved. Family History: Diabetes mellitus Mother Sister Hypertension Mother Sister Father Diabetes mellitus type 2 Mother Hyperlipidemia Mother CAD - Coronary artery disease Father Mother Procedure history: Transrectal biopsy of prostate using ultrasound (US) guidance (2120801696) on 09/08/2020 at 64 Years. Colonoscopy (589609210) in 2012 at 55 Years. Arthroplasty of knee (64756310). Arthroscopy of shoulder (739086574). Insertion of catheter into spinal canal for infusion of therapeutic substance (8410938424). Lumbar discectomy (669364709). Comments: 06/25/2022 15:29 EDT - Lulu Peralta LPN L4-5 CE - Cataract extraction (0746946313). Social History Social & Psychosocial Habits Alcohol 06/25/2022 Use: Current Type: Beer Frequency: Daily Substance Abuse 06/25/2022 Risk Assessment: Denies Substance Abuse Tobacco 06/25/2022 Tobacco Use: Former smoker, quit more Smokeless tobacco use: Never (more content not included)... Normal [facility] Comment on above: Result Comment: Elec tronically Signed By: Scotu Lamas Jr., DO.br\Date and Time Signed: 07/06/22 14:09 EST Outside Radiologyon 07-05-20 Outside Radiology [id number]# 1.00CD:127 [facility] Coding Summary.on 07-02-2022 Coding Summary. CD:[id number]:[id number] G h0bWw+PGhlYWQ+NH5NFRC xQ09kbFOdfO7SA1uPGZ8L BROCXNLJJV1EYP7vdUJ1E FiwN9XencXk AwxohTSkHO08GCh7PWY0j JvhHEakjC9liQLbY7l8Jx LtAI07fF29TWprKGOjLaM 3LjZpbjsgbWFy H9bzHqGrcHFrUuq+PHRhY mxlIHdpZHRoPScxMDAlJy HpuZtjHB7gJx3fXGSyMXO vbGxhcHNlOiBj d6szLMRtWSnmDH1khZypZ 0MhmGN4NRFpg0s4Oc80vQ I+TFCvULT1gWljGOvqc72 2SpKfq6wmVQW4 uRVbKPxeCII1J07mz8H5F PXcYPKaFFZ9cSD1cC3eiR vpvegvT0FuhFImRqH3PSY 4zDRprX3inKld gdciiM7tToa+E81EOD2VN EMAEL3FNsg4J0TwXwckqU I+LB14VGLwPU63hPDiqMI os8qtfEc3AfBd OPSdAHL4kVjjUDmrz4QhJ QFsT97deYJar0S2KWLuaP amkIVhCgNhlXN4yE2nAPy cjfltt5xhdbfb Gvtmq4qksw05zW56Y99aE HzwZKRzBAK6ZFPlJHSnbE tzrm6kuW5rHl1+GHzht4u wg1mjsXf4BnJf GHQxaeLtrHcbGMZ2a5EoR x69F7BlwZuzi4QhKdc1ee 94pJSbn6Y2pVV3BCpjRNR pvR5mIXhhBgJ8 VJVmCzCqiD73aPTiWMxjH m4dhCaksUozDQ1kMWBozo cxTDBqbC2nODQdlDGjpTn qBM5zUYDmkzzn b749EdBlSPW4DRTvwUIkQ 6CijD7jBaLiWTFcKRJpF5 FozZFdXEmqS631ZHdbPmS 4UWTaezOxJ9Dp NUHggSuqApG1m5P7Mr0Dd 7FjipquBPR0IPxvVVHvEh WiEjLkYrM2L4RdBhh7FVW bjQhnPQ1aQ2Xv HYNsvnsihwkprRH2KVUxP EHraW72gKAwIAbiPy4ng1 A6t123FQEgUAKlpN16Lf5 udDogMTBwdCBU bW4wjeerb6qlrxjsUhAuM VZuODx0VEt0CWDzaWhvRa ByDXF4BsZ5DOH4nDKowQ4 wpCiuyfeqkE1a Oyc+M85jeA0tFGY7SFI4t anxTKErpyAvEO42EJ55H6 RyPjwvdGFibGU+PGRpdiB pmUocPH3wOlMz k6ssu4IkRNeqZ4VfZTQuM VqzStt2XDNjEHE5pBS2fV 3wJFEtGBcgh6S8rOZ1V5E fafCsnb6cn8vt WZVvSHuoJ06zaZJzq6P1F QUniKP5FFMwiQkhFoVxiO 93Oyc+ZIAfzBdjz4QoOci hw2fmy2dxbNs6 VrSaGYEhknTgyOzqWQI3u 3GxWu98Z89gEPfjEUBzDR NqZURzHJNypPwxce9bxH0 wIi8+PGNvbCB3 bJP0uW5aCRBuIwZ2PNqlO 467GnFlaBYyBbqco6bgd9 besAr3GiCiZGFlesMegTz gIWF4f1DdQm56 G93fXHqdKKQfXGSrEGOlZ WKkwXhonr7djI3aLt6+PC 8jt1cfup13vN31fBT+PHR vFZS5gUnrBFnq UARdrC5sYYygQlI7NDSsO oGbbQ80qKOdJYnySd1reI esyWhrZB1kLIHwqiwjf45 1MnWiy1coKSGe yHVtLWzgZOY4C17dv5B1P CLqQWOhWLY6eQZ8sX0vlR lnbjogbGVmdDsgdmVydGl vBQsoTCmaK764 IHRvcDsnPlBhdGllbnQgT hMiINr1W6XuLiz9DSOacO msZD0drVAjQDmtUr3jaGg fiVflRK1wWBSl lepbk493PqRbj3kuAHYvn UXpIGcgBDS7W71sc0F8IP XvRIUnPZJ1rDW9rT4kuUk nbjogbGVmdDsg jpHuyGtoAKwsEVgrO064X HRvcDsnPkJpcnRoIERhdG W2QY68GL17rBYfi2A9dKH 4W7HlLMFgetkb rbftxIY8ELPwZAPuwG37S e0mrGhbJo5hBTSiFYX3CM OelCTxU3PgwS9xRtLeWKL tPGArQ2GotILd ZZckM213QKemMiY5NOYpe sYoB7WlSTKooQofSaM0x4 S3Vz7QT1V5XF33FJ69dWI fh2R1fIA8A6Yq NOKaqtnfsxvjxGT9BMPuC SItnU38Dk1awKlsOm7mBN PaNIZ8RHXmrBUqP1CpwD9 yOiAjMDAwMDAw W3UvsLFhMXhjM367EXrbL zL0VUZqnfUrE2OvPZZzeG wdWrD2n9W8Qg1CLVt9XK6 6MO36uJUge9T8 pOB3R0VbGWYoyvzgwzhtg XN5IEDeGIByoJ61Tu6jsX oyCo1oSPMzLXE9GIVbeOH dG4KlvV6rUrZq ZWTgQGUqI2AtlPUuZRpdD 415WCweMwN1YXIjeaVdD3 TuEOAgvMkoEpR4l5A1Vc1 OPDXpCO72ARD1 oHL3OK85JZ29U5ZxQoilj GFibGU+PHRhYmxlIHdpZH RoPScxMDAlJyBzdHlsZT0 zUn0oFIXwNPAj qGvqwCUcZuArb3qdAKLzT GotJV3giNfrF9DefWK1DL Wjq3v0Xl87K24tH8NauYH +LBKfxVR9yRY4 bE8vHhMdHaN8JIazX795M qRjnSOlTyaow2lel9jucM n2TtX4WYSskbDnrDncHJI 5f3YcGy30C73l IHdpZHRoPSIxNSUiIHZhb Rmvut2zvY9qJk6+PGNvbC T0rSN9cA3kVhJxUqU5QJr qW461MlIftTXj Deggl7tdh0odvKj9LoNsU QPznaFitRivUXQ6v3PfVf 86A3QacRxwl0CsAne9pd5 2aOZiy9I8pSW8 V2RdNKBmfonajELuyMniH F4dTYYkccirKXHcgA8mKC NnE2y9DpXmFlN8AUneR8F gceD1LXUjzVIn HRrlDPC8B30rj2K8SHRcO NSrCVB5zWG3gO2kzFqnvr ogbGVmdDsgdmVydGljYWw eGVrlP621LKYc dKdnYIEykR7kCWJgeULxc UdoRS8hZXKdimeqJytMRX RFTEJVUkcsIEpBTUVTIFI 6L6DvMih2ETGv qSktVZ7qaKInTRdhRt6pw ThegHwpOF0aEMAyogtrIC PdwG1eTESohLEqjKluJW5 yLEPufijnz867 HxUoGSO8RJLvpOKtP6Ojn Q3zFcIkJSIwUIJuB0TjyR LaIMywS872MTjnLoD2WIA kcqQvF6LaKYFf nUpvQdZ0e4X1Tz6pNl2xB X5vKBI0JD47AG30fKGlw1 N4tRH5U0VoENNpwpyjtlb brPV3MLFyFRFg dV87wLRoQMxlJj2pg6N8i 376WHXmSLMogV46Cc3flD ubRWRljQDJaN1oljpwb8j vcjogIzAwMDAw WYk5OJe4OTTpoZqsKrNbN NZ5RcO6CKG1dMKpzI1pdB lirsvxdP0uNju+NjYgWWV iowU9P6FrCwc5 IPYapZffOB6xbNAfXSrqD e7jsXzntBdoLL3jHRDsrd buQHZuqF9vKHByqDOryQx oEH0oUKLqetnu p361VsBaFPK4LDEpiKBvJ 0DypQ6oRiEfSNJqNTOdT1 TytHGyDIhnO445HDcvErU 0WBHifvKeZ7Pb KTFyxBfbMmA9z5M2Kn5NQ MflEI10RR18hRQbo6D3zR N1V9UzABIndwmtorbfkXJ 6UFKtAVVxbI64 oGErYAcvIl2lv6K0z476A NSfGBZnoN07Hd8dnSedPN SaoSPAoK3zrmecl1zbzed gIzAwMDAwMDt0 ABk3GQKxnTfpVuTaEDK7M jU1DPA1eZUjxY3alUiser qwzF1pWqy+UmVjdXJyaW5 rXJ58JD71G6Fl PjwvdGFibGU+PHRhYmxlI HdpZHRoPScxMDAlJyBzdH uvTF0gWi8dHNLiKAJpyFw nqLPfOgOoq1tw OPTdIQrlBQ7tqSbsO2Hst KH4APKvg7o6Uj31K53lO6 JvdXA+LSYjqRD7mVK4vE7 pQgZxOxR2RSuu S203OfOoqHRcZkydv4dyf 7duaWw6NaYmVHClbpBepW qfGYO7l9MuKs20Z34aBLq pZHRoPSIyMCUi IBDqyCioct2jwK8aGl8+P LQthRD3gIP3wC6mAvDcYw N8LEuoP377OyOquQVjGvu aT22rW1KlqQX+ UOFwQql5CWXneXvpWF5yu ILzZMgvCt8qZAN9DyIpMc UrUFzsO5YgHNYrxhvdrud ikJO9CCLvRHMs mA79Tb0ulKehXr0sRKQcF QT1STFykUQnK9FvfQ5yXn ByAFGgHLEoU1UatCHhCWw wS544LEgmMgC5 ESOrhgSaZ1NoCGCllJgiZ hQ1c2B2It9FhCoukBRpNS 6pKeBsKVv8G5NgMhg4FKU pcWblHI1hlEVr GEqwUm8knDckuFchJI5yY ITheqrcl382NgKsa7umKE JtnFWoMSopJEQ4G14wy8R 9URAqOPPtZUJ9 bWO7sT4jfQfajetgyGJis DsgdmVydGljYWwtYWxpZ2 78PPAyeDjvGuFVPdz0Z4Q mRlp2ZSOcoKgs EM4oiWQvQVxxWf8pnGcyd MngIQ6lJFWtaqvvs849Or Tqo2dwJLMvoJSdXHqpDRE 1N05fl2H0QYUg CEOfRYT7oKX8rX0yyDarl jogbGVmdDsgdmVydGljYW hvWDuqF716QFGhsKlqLe0 HWil6U3MvPpc8 JGNdmFsdBA5ikWDqBYhwJ o7msPouoPrcGM4iWGTosm rnn054VyPhf0cpXMEgnFZ sMFtuFNC8J85r e7I2EGNbHKHtARY1hMH9l U8lwErsilkswPZchPsmux BpwKblASwxGRwvM228YTV vcDsnPlBheWVy OjwvdGQ+UF16dq80Q0RvG zfjIwt8VAWrQTL2oFL4cI 1rNLGyOIamp7C4nYK3L9D fiyDima0ku4dv YXBz (more content not included)... Normal [facility] Auto Diffon 06-30-2022 Basophils/100 WBC (Bld) 2.7 % High 0.0-2.0 [facility] Comment on above: Order Comment: Order Added by Discern Expert. Performed By: #### 2 381617, [id number], 6194832, 7634508, 60943187 #### [facility] [address] [place] [address] Basophils/Leukocytes Auto (Bld) [Pure # fraction] 0.2 E9/L Normal 0.0-0.2 [facility] Comment on above: Order Comment: Order Added by Discern Expert. Performed By: #### 2 487313, 46469743, 4838883, 3138596, 09300333 #### [facility] [address] [place] [address] Eosinophils/100 WBC (Bld) 7.5 % Normal 0.0-8.0 [facility] Comment on above: Order Comment: Order Added by Discern Expert. Performed By: #### 2 645770, 36244198, 7781887, 1864329, 49316277 #### [facility] [address] [place] [address] Eosinophils/Leukocyte s Auto (Bld) [Pure # fraction] 0.5 E9/L Normal 0.0-0.5 [facility] Comment on above: Order Comment: Order Added by Discern Expert. Performed By: #### 2 644674, 53474524, 3277743, 7981222, 34559783 #### [facility] [address] [place] [address] Lymphocytes/100 WBC (Bld) 35.7 % Normal 14.0-50.0 [facility] Comment on above: Order Comment: Order Added by Discern Expert. Performed By: #### 2 623217, 26698440, 8580685, 4937688, 67973371 #### [facility] [address] [place] [address] Lymphocytes/Leukocyte s Auto (Bld) [Pure # fraction] 2.3 E9/L Normal 1.0-4.0 [facility] Comment on above: Order Comment: Order Added by Discern Expert. Performed By: #### 2 648735, 01291628, 5716258, 0374236, 01957034 #### [facility] [address] [place] [address] Monocytes/100 WBC (Bld) 7.0 % Normal 4.0-14.0 [facility] Comment on above: Order Comment: Order Added by Discern Expert. Performed By: #### 2 150492, 22233947, 0367910, 9684033, 16644963 #### [facility] [address] [place] [address] Monocytes/Leukocytes Auto (Bld) [Pure # fraction] 0.5 E9/L Normal 0.2-1.0 [facility] Comment on above: Order Comment: Order Added by Discern Expert. Performed By: #### 2 913652, 63388394, 0469475, 4985022, 85219589 #### [facility] [address] [place] [address] Neutrophils/100 WBC (Bld) 47.1 % Normal 36.0-75.0 [facility] Comment on above: Order Comment: Order Added by Discern Expert. Performed By: #### 2 868008, 03337014, 3986509, 7560986, 42251572 #### [facility] [address] [place] [address] Neutrophils/Leukocyte s Auto (Bld) [Pure # fraction] 3.1 E9/L Normal 2.0-7.5 [facility] Comment on above: Order Comment: Order Added by Discern Expert. Performed By: #### 2 483222, 55224742, 6031142, 6652260, 02754363 #### [facility] [address] [place] [address] BMPon 06-30-2022 Anion gap [Moles/Vol] 13 mmol/L Normal 6-16 [facility] Comment on above: Performed By: #### 2 627831, 21412935, 7853649, 6815993, 49254529 #### [facility] [address] [place] [address] Calcium [Mass/Vol] 9.4 mg/dL Normal 8.9-11.1 [facility] Comment on above: Performed By: #### 2 292335, 17157120, 6368845, 4571802, 15373187 #### [facility] [address] [place] [address] Chloride [Moles/Vol] 99 mmol/L Low 101-111 [facility] Comment on above: Performed By: #### 2 569038, 25121107, 3687007, 3582697, 19018209 #### [facility] [address] [place] [address] CO2 [Moles/Vol] 25 mmol/L Normal 21-31 [facility] Comment on above: Performed By: #### 2 580187, 86813024, 5342820, 1742881, 23010022 #### [facility] [address] [place] [address] Creatinine [Mass/Vol] 1.0 mg/dL Normal 0.5-1.3 [facility] Comment on above: Performed By: #### 2 498544, 82439846, 3734797, 7040444, 34578018 #### [facility] [address] [place] [address] Glucose [Mass/Vol] 241 mg/dL High 55-199 [facility] Comment on above: Result Comment: If t his glucose result represents a fasting glucose, interpretation should refer to the following reference range: 55-99 mg/dL Performed By: #### 2 647354, 58964816, 0135055, 6146761, 08992029 #### [facility] [address] [place] [address] Potassium [Moles/Vol] 3.7 mmol/L Normal 3.5-5.3 [facility] Comment on above: Performed By: #### 2 107245, 08867818, 9756699, 1520932, 44609716 #### [facility] [address] [place] [address] Sodium [Moles/Vol] 133 mmol/L Low 135-145 [facility] Comment on above: Performed By: #### 2 028394, 96716434, 8696914, 7200812, 68617018 #### [facility] [address] [place] [address] Urea nitrogen [Mass/Vol] 12 mg/dL Normal 5-21 [facility] Comment on above: Performed By: #### 2 115765, 33001628, 9850483, 4639669, 34912572 #### [facility] [address] [place] [address] Urea nitrogen/Creatinine [Mass ratio] 12 No Units Normal 10-20 [facility] Comment on above: Performed By: #### 2 794761, 22980681, 5691206, 9191121, 04581071 #### [facility] [address] [place] [address] CBC w/ Auto Diffon Erythrocyte distribution width (RBC) [Ratio] 14.0 % Normal 10.9-14.2 [facility] Comment on above: Performed By: #### 2 844717, 93055707, 6963681, 6843080, 83754479 #### [facility] [address] [place] [address] Hematocrit (Bld) [Volume fraction] 40.8 % Normal 37.7-49.0 [facility] Comment on above: Performed By: #### 2 654246, 51797851, 0789231, 5407183, 09439680 #### [facility] [address] [place] [address] Hemoglobin (Bld) [Mass/Vol] 13.9 g/dL Normal 13.5-17.5 [facility] Comment on above: Performed By: #### 2 894215, 17443107, 6007573, 5120438, 77865171 #### [facility] [address] [place] [address] MCH (RBC) [Entitic mass] 27.9 pg Normal 27.0-34.0 [facility] Comment on above: Performed By: #### 2 034028, 50581737, 8256069, 2464216, 36781865 #### [facility] [address] [place] [address] MCHC (RBC) [Mass/Vol] 34.1 g/dL Normal 31.4-36.0 [facility] Comment on above: Performed By: #### 2 511126, 67673102, 0299700, 6984379, 27663800 #### [facility] [address] [place] [address] MCV (RBC) [Entitic vol] 81.8 fL Normal 80.0-100.0 [facility] Comment on above: Performed By: #### 2 645215, 82240794, 9563988, 2979272, 71957543 #### [facility] [address] [place] [address] Platelet mean volume (Bld) [Entitic vol] 8.3 fL Normal 6.4-10.8 [facility] Comment on above: Performed By: #### 2 935288, 12852383, 6130142, 3540316, 53869726 #### [facility] [address] [place] [address] Platelets (Bld) [#/Vol] 191.0 E9/L Normal 150.0-500.0 [facility] Comment on above: Performed By: #### 2 110608, 36827919, 2318006, 1347367, 66738188 #### [facility] [address] [place] [address] RBC (Bld) [#/Vol] 5.0 E12/L Normal 4.3-5.9 [facility] Comment on above: Performed By: #### 2 859886, 85871885, 4124739, 3968514, 61456946 #### [facility] [address] [place] [address] WBC corrected for nucl RBC Auto (Bld) [#/Vol] 6.5 E9/L Normal 4.0-11.0 [facility] Comment on above: Performed By: #### 2 342933, 54381221, 4719254, 7405755, 11173047 #### [facility] [address] [place] [address] CHEMISTRYOrdered By: SYSTEM SYSTEM on 06-30-2022 Anion [...] rate/Area] mL/min/1.73 m2 Normal >=59mL/min/1.7 3 m2 [facility] Chem S GFR/1.73 sq M.predicted among non-blacks MDRD (S/P/Bld) [Vol rate/Area] mL/min/1.73 m2 Normal >=59mL/min/1.7 3 m2 [facility] Chem S Glucose [Mass/Vol] 241 mg/dL High 55 - 199 mg/dL [facility] Remisol Potassium [Moles/Vol] 3.7 mmol/L Normal 3.5 - 5.3 mmol/L [facility] Remisol Sodium [Moles/Vol] 133 mmol/L Low 135 - 145 mmol/L [facility] Remisol Urea nitrogen [Mass/Vol] 12 mg/dL Normal 5 - 21 mg/dL [facility] Remisol Urea nitrogen/Creatinine [Mass ratio] 12 mg/mg Normal 10 - 20 [facility] Remisol COAGULATIONOrdered By: Khalida Khalil on 06-30-2022 aPTT Coag (PPP) [Time] 33.6 s Normal 25.1 - 36.5 second(s) [facility] Auto Coag INR Coag (PPP) [Relative time] 1.1 {INR} Invalid Interpretation Code [facility] Auto Coag PT Coag (PPP) [Time] 11.8 s Normal 9.4 - 1 2.5 second(s) [facility] Auto Coag Consent for Treatmenton Consent for Treatment [id number]#1 .00CD:127 Normal [facility] Consent for Treatment [id number]# 1.00CD:127 Normal [facility] HEMATOLOGYOrdered By: SYSTEM SYSTEM on 06-30-2022 Basophils/100 WBC (Bld) 2.7 % High 0.0 - 2.0 % [facility] HemeAutoSS Basophils/Leukocytes Auto (Bld) [Pure # fraction] 0.2 E9/L Normal 0.0 - 0.2 E9/L [facility] HemeAutoSS Eosinophils/100 WBC (Bld) 7.5 % Normal [...] 5.0 E12/L Normal 4.3 - 5.9 E12/L [facility] HemeAutoSS WBC corrected for nucl RBC Auto (Bld) [#/Vol] 6.5 E9/L Normal 4.0 - 11.0 E9/L [facility] HemeAutoSS PT & PTTon 06-30-2022 aPTT Coag (PPP) [Time] 33.6 second(s) Normal 25.1-36.5 [facility] Comment on above: Result Comment: Para [...] the same coagulation reagent and instrumentation as [facility]. Currently there are no coagulation studies available worldwide for children to 14 days, and no normal ranges. Heparin therapeutic range (represented by Anti-Factor Xa activity of 0.2 - 0.4 U/mL) corresponds to PTT of 56.6 - 109.0 sec. Performed By: #### 2 051998, 00976576, 5498258, 0619001, 27217538 #### [facility] [address] [place] [address] INR Coag (PPP) [Relative time] 1.1 {INR} Invalid Interpretation Code [facility] Comment on above: Result Comment: INR results are specifically intended to assess patients stabilized on long-term Anticoagulation therapy suggested INR?s ?Less Intensive Anticoagulation? 2.0 ? 3.0 Conventional Range 3.0 ? 4.5 Performed By: #### 2 704867, 92258737, 5336250, 0643443, 70556737 #### [facility] [address] [place] [address] PT Coag (PPP) [Time] 11.8 second(s) Normal 9.4-12.5 [facility] Comment on above: Result Comment: 15 [...] the same coagulation reagent and instrumentation as [facility]. Currently there are no coagulation studies available worldwide for children to 14 days, and no normal ranges. Performed By: #### 2 996796, 89400191, 6081641, 9602698, 89147461 #### [facility] [address] [place] [address] UA With Cult Reflexon 2021 Bilirubin Ql (U) Negative Normal Negative [facility] Comment on above: Performed By: #### 1 3263530 ####[facility] [address] [place] [address] Clarity (U) CLEAR Normal Clear [facility] Comment on above: Performed By: #### 1 0896404 ####[facility] [address] [place] [address] Color (U) YELLOW Normal Yellow [facility] Comment on above: Performed By: #### 1 9845984 ####[facility] [address] [place] [address] Epithelial cells.squamous LM.HPF (Urine sed) [#/Area] 0-2 Normal 0-2 [facility] Comment on above: Performed By: #### 1 6008347 ####[facility] [address] [place] [address] Glucose Test strip (U) [Mass/Vol] 1+ Abnormal Negative [facility] Comment on above: Performed By: #### 1 8130025 ####[facility] [address] [place] [address] Hemoglobin Ql (U) TRACE Abnormal Negative [facility] Comment on above: Performed By: #### 1 1059664 ####[address] [address] Ketones (U) [Mass/Vol] Negative Normal Negative [facility] Comment on above: Performed By: #### 1 6662551 ####[address] [address] [place].plasma/Lithiu m.RBC (Bld) [Mass ratio] 4-20 Normal 0-3 [facility] Comment on above: Performed By: #### 1 6559936 ####[address] [address] Nitrite Ql (U) Negative Normal Negative [facility] Comment on above: Performed By: #### 1 3823608 ####[address] [address] pH (U) 5.5 [pH] Invalid Interpretation Code 5.0-9.0 [facility] Comment on above: Performed By: #### 1 6291464 ####[address] [address] Protein (U) [Mass/Vol] Negative Normal Negative [facility] Comment on above: Performed By: #### 1 8673011 ####[address] [address] Specific gravity (U) [Rel density] 1.025 Invalid Interpretation Code 1.005-1.030 [facility] Comment on above: Performed By: #### 1 9701844 ####[address] [address] Type of Urine collection method Clean Catch Normal [facility] Comment on above: Performed By: #### 1 3298156 ####[address] [address] Urobilinogen Qn (U) 0.2 {Shaka'U}/dL Normal 0.0-1.0 [facility] Comment on above: Performed By: #### 1 3625172 ####[facility] [address] [place] [address] WBC Auto Ql (U) Negative Normal Negative [facility] Comment on above: Performed By: #### 1 7441691 ####[facility] [address] [place] [address] WBC LM.HPF (Urine sed) [#/Area] 0-5 Normal 0-5 [facility] Comment on above: Performed By: #### 1 8995951 ####[facility] [address] [place] [address] URINALYSISOrdered By: Duglas Khalil on 06-30-2022 Bilirubin [...] PM) Normal Negative [facility] UA Auto SS [place].plasma/Lithiu m.RBC (Bld) [Mass ratio] 4-20 /HPF Normal 0-3/HPF [facility] UA Auto SS Nitrite Ql (U) Negative (06/30/22 4:35 PM) Normal Negative [facility] UA Auto SS pH (U) 5.5 *NA* (06/30/22 4:35 PM) Invalid Interpretation Code 5.0 - 9.0 [facility] UA Auto SS Protein (U) [Mass/Vol] Negative (06/30/22 4:35 PM) Normal Negative [facility] UA Auto SS Specific gravity (U) [Rel density] 1.025 *NA* (06/30/22 4:35 PM) Invalid Interpretation Code 1.005 - 1.030 [facility] UA Auto SS UA Spec Desc Clean Catch (06/30/22 4:35 PM) Normal [facility] UA Auto SS Urobilinogen Qn (U) 0.6409397 {Shaka'U}/dL Normal 0.0 - 1.0 EU/dL [facility] UA Auto SS WBC Auto Ql (U) Negative (06/30/22 4:35 PM) Normal Negative [facility] UA Auto SS WBC LM.HPF (Urine sed) [#/Area] 0-5 /HPF Normal 0-5/HPF [facility] UA Auto SS XR Chest 2 Viewson [...] V. Transcribed by: LISANDRO Technologist: VINNY Normal [facility] eGFRon 06-30-2022 GFR/1.73 sq M.predicted among blacks MDRD (S/P/Bld) [Vol rate/Area] mL/min/{1.73_m2} Normal >=59 [facility] Comment on above: Order Comment: Order added by Discern Expert. Result Comment: eGFR is race adjusted. AA=. Performed By: #### 2 897130, 96067790, 5525068, 2730508, 84341218 ####[facility] [address] [place] [address] GFR/1.73 sq M.predicted among non-blacks MDRD (S/P/Bld) [Vol rate/Area] mL/min/{1.73_m2} Normal >=59 [facility] Comment on above: Order Comment: Order added by Discern Expert. Result Comment: [employer] anderson kidney disease could be indicated at eGFR's of less than 60 mL/min/1.73m2. Kidney failure is indicated at less than 15 mL/min/1.73m2. Performed By: #### 2 [id number] ####[facility] [address] [place] [address] COVID-19 (MC)on 06-29-2022 Performing Instrument FT Willie 2 Normal Fis [facility] Comment on above: Performed By: #### 2 [id number] ####[facility] [address] [place] [address] SARS-CoV-2 (COVID-19) RNA NISHANT+probe Ql (Resp) Not detected Normal Not Detected [facility] Comment on above: Result Comment: This test result should be correlated with clinical presentations and medical history by a healthcare provider to determine its clinical significance. This assay was performed by a reverse transcriptase real-time polymerase chain reaction (rt PCR) method on the copygram system. This test has been authorized only [...] or revoked sooner. Performed By: #### 2 [id number] ####[facility] [address] [place] [address] SARS-CoV-2 (COVID-19) RNA NISHANT+probe Ql (Unsp spec) Pass Normal Pass [facility] Comment on above: Performed By: #### 2 [id number] ####[place] [address] Specimen source Nom (Unsp spec) Nasal Normal [facility] Comment on above: Performed By: #### 2 [id number] ####[place] [address] Facesheeton 06-29-2022 Facesheet [id number]#1 .00CD:127 Normal [facility] COVID-19 (MC)on 06-28-2022 ADMITTED TO INTENSIVE CARE UNIT FOR CONDITION OF INTEREST:FIND:PT: NO Normal [facility] Comment on above: Performed By: #### 2 [id number] ####[place] [address] EMPLOYED IN A HEALTHCARE SETTING:FIND:PT: Unknown Normal [facility] Comment on above: Performed By: #### 2 [id number] ####[place] [address] FIRST TEST FOR CONDITION OF INTEREST:FIND:PT: Unknown Normal [facility] Comment on above: Performed By: #### 2 [id number] ####[place] [address] HAS SYMPTOMS RELATED TO CONDITION OF INTEREST:FIND:PT: Unknown Normal [facility] Comment on above: Performed By: #### 2 [id number] ####[place] [address] HOSPITALIZED FOR CONDITION OF INTEREST:FIND:PT: NO Normal [facility] Comment on above: Performed By: #### 2 [id number] ####[place] [address] STATUS:FIND:PT: NO Normal [facility] Comment on above: Performed By: #### 2 [id number] ####[place] [address] [facility]:FIND:PT: Unknown Normal [facility] Comment on above: Performed By: #### 2 [id number] ####[facility] [address] [facility] [id number] Consent for Procedure/Surger yon 06-28-2022 Consent for Procedure/Surgery [id number]#1 .00CD:127 Normal [facility] RAD - MISCon 06-24-2022 RAD - MISC [id number]#1 .00CD:127 Normal [facility] XR ABD FLAT_UPon 06-15-2022 XR ABD [...] SUELLEN MAYO Date: 2022-06-15 17:03 Normal [facility] CBC AUTO DIFFon 06-07-2022 BASO # 0.1 103/ul Normal 0.0-0.1 [facility] Comment on above: Performed By: #### P TT, PT #### [facility] [address] [address] [address] Marcell Luque Basophils/100 WBC (Bld) 0.6 % Normal 0.2-2.0 [facility] Comment on above: Performed By: #### P TT, PT #### [facility] [address] [address] [address] Marcell Luque EO # 0.3 103/ul Normal 0.0-0.7 [facility] Comment on above: Performed By: #### P TT, PT #### [facility] [address] [address] [address] Marcell Luque Eosinophils/100 WBC (Bld) 3.3 % Normal 0.9-7.0 [facility] Comment on above: Performed By: #### P TT, PT #### [facility] [address] [place] [address] Dr. Marcell Luque Erythrocyte distribution width (RBC) [Ratio] 13.9 % Normal 11.0-15.0 [facility] Comment on above: Performed By: #### P TT, PT #### [facility] [address] [place] [address] Dr. Marcell Luque Hematocrit (Bld) [Volume fraction] 39.3 % Critically low 42.0-54.0 [facility] [facility] Comment on above: Performed By: #### P TT, PT #### [facility] [address] [place] [address] Dr. Marcell Luque Hemoglobin (Bld) [Mass/Vol] 12.6 g/dL Critically low 14.0-18.0 [facility] Comment on above: Performed By: #### P TT, PT #### [facility] [address] [place] [address] Dr. Marcell Luque IG # 0.02 10e3/ul Normal 0.00-0.03 [facility] Comment on above: Performed By: #### P TT, PT #### [facility] [address] [place] [address] Dr. Marcell Luque IG % 0.2 % Normal 0.0-0.5 [facility] Comment on above: Performed By: #### P TT, PT #### [facility] [address] [place] [address] Dr. Marcell Luque LYMPH # 2.4 103/ul Normal 1.2-3.8 [facility] Comment on above: Performed By: #### P TT, PT #### [facility] [address] [place] [address] Dr. Marcell Luque Lymphocytes/100 WBC (Bld) 29.6 % Normal 20.5-60.0 [facility] Comment on above: Performed By: #### P TT, PT #### [facility] [address] [place] [address] Dr. Marcell Luque MANUAL DIFF REQ NO Normal [facility] Comment on above: Performed By: #### P TT, PT #### [facility] [address] [place] [address] Dr. Marcell Luque MCH (RBC) [Entitic mass] 27.9 pg Normal 25.9-34.0 [facility] Comment on above: Performed By: #### P TT, PT #### [facility] [address] [place] [address] Dr. Marcell Luque MCHC (RBC) [Mass/Vol] 32.1 g/dL Normal 29.9-35.2 [facility] Comment on above: Performed By: #### P TT, PT #### [facility] [address] [place] [address] Dr. Marcell Luque MCV (RBC) [Entitic vol] 87.1 fL Normal 80.0-94.0 [facility] Comment on above: Performed By: #### P TT, PT #### [facility] [address] [place] [address] Dr. Marcell Luque MONO # 0.9 103/ul Critically high 0.3-0.8 [facility] Comment on above: Performed By: #### P TT, PT #### [facility] [address] [place] [address] Dr. Marcell Luque Monocytes/100 WBC (Bld) 10.7 % Normal 1.7-12.0 [facility] Comment on above: Performed By: #### P TT, PT #### [facility] [address] [place] [address] Dr. Marcell Luque NEUT # 4.5 103/ul Normal 1.4-6.5 [facility] Comment on above: Performed By: #### P TT, PT #### [facility] [address] [place] [address] Dr. Marcell Luque Neutrophils/100 WBC (Bld) 55.6 % Normal 43.0-75.0 [facility] Comment on above: Performed By: #### P TT, PT #### [facility] [address] [place] [address] Dr. Marcell Luque Platelet mean volume (Bld) [Entitic vol] 10.7 fL Normal 9.5-13.5 [facility] Comment on above: Performed By: #### P TT, PT #### [facility] [address] [place] [address] Dr. Marcell Luque PLT 155 103/ul Normal 150-450 [facility] Comment on above: Performed By: #### P TT, PT #### [facility] [address] [place] [address] Dr. Marcell Luque RBC 4.51 106/ul Critically low 4.70-6.10 [facility] Comment on above: Performed By: #### P TT, PT #### [facility] [address] [place] [address] Dr. Marcell Luque WBC 8.1 103/ul Normal 4.0-11.0 [facility] Comment on above: Performed By: #### P TT, PT #### [facility] [address] [place] [address] Dr. Marcell Luque Covid-19 PCR ([facility])on 05-22 SARS-CoV-2 (COVID-19) RNA NISHANT+probe Ql (Unsp spec) Not detected Normal NOT DETECTED [facility] Comment on above: Result Comment: When diagnostic [...] for this test is supported by the [place] of Health and Human Service's declaration that [...] Performed By: #### P TT, PT #### [facility] [address] [address] [address] Marcell Luque LACTATE/LACTIC ACIDon 2021 Lactate [Moles/Vol] 1.4 mmol/L Normal 0.4-1.9 [facility] Comment on above: Performed By: #### L ACT #### [facility] [address] [address] [address] Marcell Luque PROF CHEM 8 (BAS METB)on Anion gap [Moles/Vol] 8.7 mmol/L Normal [facility] Comment on above: Performed By: #### B MP #### [facility] [address] [address] [address] Marcell Luque Calcium [Mass/Vol] 8.7 mg/dL Normal 8.5-10.1 [facility] Comment on above: Performed By: #### B MP #### [facility] [address] [address] [address] Marcell Luque Chloride [Moles/Vol] 101 mmol/L Normal 98-107 [facility] Comment on above: Performed By: #### B MP #### [facility] [address] [address] [address] Marcell Luque CO2 [Moles/Vol] 29.8 mmol/L Normal 21.0-32.0 [facility] Comment on above: Performed By: #### B MP #### [facility] [address] [address] [address] Marcell Luque Creatinine [Mass/Vol] 1.12 mg/dL Normal 0.70-1.30 [facility] Comment on above: Performed By: #### B MP #### [facility] [address] [address] [address] Marcell Luque EGFR-AF CAPE VERDEAN >60 Normal >=60 [facility] Comment on above: Performed By: #### B MP #### [facility] [address] [address] [address] Marcell Luque EGFR-NON AF [place] >60 Normal >=60 [facility] Comment on above: Performed By: #### B MP #### [facility] [address] [address] [address] Marcell Luque Glucose [Mass/Vol] 173 mg/dL Critically high 74-106 [facility] Comment on above: Performed By: #### B MP #### [facility] [address] [address] [address] Marcell Luque Potassium [Moles/Vol] 3.5 mmol/L Normal 3.5-5.1 [facility] Comment on above: Performed By: #### B MP #### [facility] [address] [address] [address] Marcell Luque Sodium [Moles/Vol] 136 mmol/L Normal 136-145 [facility] Comment on above: Performed By: #### B MP #### [facility] [address] [address] [address] Marcell Luque Urea nitrogen [Mass/Vol] 18.0 mg/dL Normal 7.0-18.0 [facility] Comment on above: Performed By: #### B MP #### [facility] [address] [address] [address] Marcell Luque Urea nitrogen/Creatinine [Mass ratio] 16.1 mg/mg Normal [facility] Comment on above: Performed By: #### B MP #### [facility] [address] [address] [address] Marcell Luque TROPONIN, HIGH SENSITIVITYon 06-07-2022 HSTROP 84.7 pg/mL Critically high 4.0-76.1 [facility] Comment on above: Result Comment: CUT- OFF POINTS HAVE BEEN ESTABLISHED BASED ON THE FOURTH UNIVERSAL DEFINITIONS OF MYOCARDIAL INFARCTION. THE UPPER REFERENCE LIMIT (URL) OF TROPONIN, DEFINED THE 99TH PERCENTILE OF cTnI DISTRIBUTION IN A REFERENCE POPULATION, HAS BEEN CONFIRMED THE DECISION THRESHOLD FOR SD DIAGNOSIS. Performed By: #### P TT, PT #### [facility] [address] [address] [address] Marcell Luque XR CHEST 1 Von [...] VALERIE ERWIN Date: 2022-06-06 22:17 Normal [facility] AMMONIAon 06-06-2022 Ammonia (P) [Moles/Vol] 13 umol/L Normal 11-32 [facility] Comment on above: Performed By: #### A MM #### [facility] [address] [place] [address] Dr. Marcell Luque CBC AUTO DIFFon 06-06-2022 BASO # 0.1 103/ul Normal 0.0-0.1 [facility] Comment on above: Performed By: #### P TT, PT #### [facility] [address] [place] [address] Dr. Marcell Luque Basophils/100 WBC (Bld) 0.7 % Normal 0.2-2.0 [facility] Comment on above: Performed By: #### P TT, PT #### [facility] [address] [place] [address] Dr. Marcell Luque EO # 0.3 103/ul Normal 0.0-0.7 [facility] Comment on above: Performed By: #### P TT, PT #### [facility] [address] [place] [address] Dr. Marcell Luque Eosinophils/100 WBC (Bld) 4.0 % Normal 0.9-7.0 [facility] Comment on above: Performed By: #### P TT, PT #### [facility] [address] [place] [address] Dr. Marcell Luque Erythrocyte distribution width (RBC) [Ratio] 13.8 % Normal 11.0-15.0 [facility] Comment on above: Performed By: #### P TT, PT #### [facility] [address] [place] [address] Dr. Marcell Luque Hematocrit (Bld) [Volume fraction] 44.4 % Normal 42.0-54.0 [facility] Comment on above: Performed By: #### P TT, PT #### [facility] [address] [place] [address] Dr. Marcell Luque Hemoglobin (Bld) [Mass/Vol] 14.4 g/dL Normal 14.0-18.0 [facility] Comment on above: Performed By: #### P TT, PT #### [facility] [address] [place] [address] Dr. Marcell Luque IG # 0.02 10e3/ul Normal 0.00-0.03 [facility] Comment on above: Performed By: #### P TT, PT #### [facility] [address] [place] [address] Dr. Marcell Luque IG % 0.2 % Normal 0.0-0.5 [facility] Comment on above: Performed By: #### P TT, PT #### [facility] [address] [place] [address] Dr. Marcell Luque LYMPH # 2.9 103/ul Normal 1.2-3.8 [facility] Comment on above: Performed By: #### P TT, PT #### [facility] [address] [place] [address] Dr. Marcell Luque Lymphocytes/100 WBC (Bld) 35.4 % Normal 20.5-60.0 [facility] Comment on above: Performed By: #### P TT, PT #### [facility] [address] [place] [address] Dr. Marcell Luque MANUAL DIFF REQ NO Normal [facility] Comment on above: Performed By: #### P TT, PT #### [facility] [address] [place] [address] Dr. Marcell Luqeu MCH (RBC) [Entitic mass] 28.1 pg Normal 25.9-34.0 [facility] Comment on above: Performed By: #### P TT, PT #### [facility] [address] [place] [address] Dr. Marcell Luque MCHC (RBC) [Mass/Vol] 32.4 g/dL Normal 29.9-35.2 [facility] Comment on above: Performed By: #### P TT, PT #### [facility] [address] [place] [address] Dr. Marcell Luque MCV (RBC) [Entitic vol] 86.7 fL Normal 80.0-94.0 [facility] Comment on above: Performed By: #### P TT, PT #### [facility] [address] [place] [address] Dr. Marcell Luque MONO # 0.7 103/ul Normal 0.3-0.8 [facility] Comment on above: Performed By: #### P TT, PT #### [facility] [address] [place] [address] Dr. Marcell Luque Monocytes/100 WBC (Bld) 8.2 % Normal 1.7-12.0 [facility] Comment on above: Performed By: #### P TT, PT #### [facility] [address] [place] [address] Dr. Marcell Luque NEUT # 4.2 103/ul Normal 1.4-6.5 [facility] Comment on above: Performed By: #### P TT, PT #### [facility] [address] [place] [address] Dr. Marcell Luque Neutrophils/100 WBC (Bld) 51.5 % Normal 43.0-75.0 [facility] Comment on above: Performed By: #### P TT, PT #### [facility] [address] [place] [address] Dr. Marcell Luque Platelet mean volume (Bld) [Entitic vol] 11.0 fL Normal 9.5-13.5 [facility] Comment on above: Performed By: #### P TT, PT #### [facility] [address] [place] [address] Dr. Marcell Luque PLT 183 103/ul Normal 150-450 [facility] Comment on above: Performed By: #### P TT, PT #### [facility] [address] [place], [place] [address] Dr. Marcell Luque RBC 5.12 106/ul Normal 4.70-6.10 [facility] Comment on above: Performed By: #### P TT, PT #### [facility] [address] [place], [place] [address] Dr. Marcell Luque WBC 8.2 103/ul Normal 4.0-11.0 [facility] Comment on above: Performed By: #### P TT, PT #### [facility] [address] [place], [place] [address] HEAD WO CONon [...] CURTIS WILSON Date: 2022-06-06 21:56 Normal [facility] CULTURE BLOODon 06-06-2022 Microscopic examination of blood, culture Culture Observations: NO GROWTH AT 5 DAYS. Normal [facility] Comment on above: Performed By: #### P TT, PT #### [facility] [address] [address] [address] Marcell Luque Microscopic examination of blood, culture Culture Observations: NO GROWTH AT 5 DAYS. Normal [facility] Comment on above: Performed By: #### P TT, PT #### [facility] [address] [place] [address] Dr. Marcell Luque ETHANOL (BLD ALC)on 06-06-20 22 ALC NOTE NOTE: 80 mg/dl is th e legal limit for a blood alcohol level Normal [facility] Comment on above: Performed By: #### P TT, PT #### [facility] [address] [place] [address] Dr. Marcell Luque Ethanol [Mass/Vol] mg/dL Normal [facility] Comment on above: Performed By: #### P TT, PT #### [facility] [address] [place] [address] Dr. Marcell Luque LACTATE/LACTIC ACIDon 2021 Lactate [Moles/Vol] 2.9 mmol/L Critically high 0.4-1.9 [facility] Comment on above: Performed By: #### P TT, PT #### [facility] [address] [address] [address] Marcell Luque PROF 14(COMP METB)on 022 Albumin [Mass/Vol] 4.3 g/dL Normal 3.4-5.0 [facility] Comment on above: Performed By: #### P TT, PT #### [facility] [address] [place] [address] Dr. Marcell Luque Albumin/Globulin [Mass ratio] 1.1 {ratio} Normal [facility] Comment on above: Performed By: #### P TT, PT #### [facility] [address] [place] [address] Dr. Marcell Luque ALP [Catalytic activity/Vol] 91 U/L Normal 46-116 [facility] Comment on above: Performed By: #### P TT, PT #### [facility] [address] [address] [address] Marcell Luque ALT [Catalytic activity/Vol] 35 U/L Normal 16-63 [facility] Comment on above: Performed By: #### P TT, PT #### [facility] [address] [place] [address] Dr. Marcell Luque Anion gap [Moles/Vol] 11.7 mmol/L Normal [facility] Comment on above: Performed By: #### P TT, PT #### [facility] [address] [address] [address] Marcell Luque AST [Catalytic activity/Vol] 15 U/L Normal 15-37 [facility] Comment on above: Performed By: #### P TT, PT #### [facility] [address] [place] [address] Dr. Marcell Luque Bilirubin [Mass/Vol] 0.4 mg/dL Normal 0.2-1.0 [facility] Comment on above: Performed By: #### P TT, PT #### [facility] [address] [address] [address] Marcell Luque Calcium [Mass/Vol] 9.8 mg/dL Normal 8.5-10.1 [facility] Comment on above: Performed By: #### P TT, PT #### [facility] [address] [place] [address] Dr. Marcell Luque Chloride [Moles/Vol] 97 mmol/L Critically low 98-107 [facility] Comment on above: Performed By: #### P TT, PT #### [facility] [address] [place] [address] Dr. Marcell Luque CO2 [Moles/Vol] 30.8 mmol/L Normal 21.0-32.0 [facility] Comment on above: Performed By: #### P TT, PT #### [facility] [address] [address] [address] Marcell Luque Creatinine [Mass/Vol] 1.45 mg/dL Critically high 0.70-1.30 [facility] Comment on above: Performed By: #### P TT, PT #### [facility] [address] [address] [address] Marcell Luque EGFR-AF [place]DEAN 59 mL/min/1.73m2 Critically low >=60 [facility] Comment on above: Performed By: #### P TT, PT #### [facility] [address] [place] [address] Dr. Marcell Luque EGFR-NON AF [place] 49 mL/min/1.73m2 Critically low >=60 [facility] Comment on above: Performed By: #### P TT, PT #### [facility] [address] [place] [address] Dr. Marcell Luque Globulin (S) [Mass/Vol] 3.9 g/dL Normal [facility] Comment on above: Performed By: #### P TT, PT #### [facility] [address] [place] [address] Dr. Marcell Luque Glucose [Mass/Vol] 204 mg/dL Critically high 74-106 [facility] Comment on above: Performed By: #### P TT, PT #### [facility] [address] [address] [address] Marcell Luque Potassium [Moles/Vol] 3.5 mmol/L Normal 3.5-5.1 [facility] Comment on above: Performed By: #### P TT, PT #### [facility] [address] [place] [address] Dr. Marcell Luque Protein [Mass/Vol] 8.2 g/dL Normal 6.4-8.2 [facility] Comment on above: Performed By: #### P TT, PT #### [facility] [address] [place], [place] [address] Dr. Marcell Luque Sodium [Moles/Vol] 136 mmol/L Normal 136-145 [facility] Comment on above: Performed By: #### P TT, PT #### [facility] [address] [place] [address] Dr. Marcell Luque Urea nitrogen [Mass/Vol] 20.0 mg/dL Critically high 7.0-18.0 [facility] Comment on above: Performed By: #### P TT, PT #### [facility] [address] [place] [address] Dr. Marcell Luque Urea nitrogen/Creatinine [Mass ratio] 13.8 mg/mg Normal [facility] Comment on above: Performed By: #### P TT, PT #### [facility] [address] [place] [address] Dr. Marcell Luque PROTIMEon 06-06-2022 INR Coag (PPP) [Relative time] 1.02 {INR} Normal [facility] Comment on above: Performed By: #### P TT, PT #### [facility] [address] [place] [address] Dr. Marcell Luque INR GUIDELINES SEE BELOW Normal [facility] Comment on above: Result Comment: DANICA RED INR: 2.0 - 3.0 CONDITIONS NOT LISTED BELOW 2.5 - 3.5 FOR PROSTHETIC HEART VALVE REPLACEMENT 2.5 - 3.5 RECURRENT THROMBOSIS Performed By: #### P TT, PT #### [facility] [address] [place] [address] Dr. Marcell Luque PT Coag (PPP) [Time] 11.0 s Normal 9.0-11.6 [facility] Comment on above: Performed By: #### P TT, PT #### [facility] [address] [place] [address] Dr. Marcell Luque PTTon 06-06-2022 aPTT Coag (Bld) [Time] 25.9 s Normal 22.3-36.2 [facility] Comment on above: Performed By: #### P TT, PT #### [facility] [address] [place] [address] Dr. Marecll Luque TROPONIN, HIGH SENSITIVITYon 06-06-2022 HSTROP 92.4 pg/mL Critically high 4.0-76.[address] [facility] Comment on above: Result Comment: CUT- OFF POINTS HAVE BEEN ESTABLISHED BASED ON THE FOURTH UNIVERSAL DEFINITIONS OF MYOCARDIAL INFARCTION. THE UPPER REFERENCE LIMIT (URL) OF TROPONIN, DEFINED THE 99TH PERCENTILE OF cTnI DISTRIBUTION IN A REFERENCE POPULATION, HAS BEEN CONFIRMED THE DECISION THRESHOLD FOR SD DIAGNOSIS. Performed By: #### P TT, PT #### [facility] [address] [address] [address] Marcell Luque Physician Referralon 022 Physician Referral [id number] .[id number]:127 Normal [facility] Ambulatory Visit Summaryon 1 Ambulatory Visit Summary EUNICE MARTE :1955 Visit Date:06/02/2022 Ambulatory Visit Instructions Your Diagnosis Elevated PSA BPH with urinary obstruction Erectile dysfunction Tests Performed Urnls Dip Stick Auto w/o Microscopy POC [id number] Your Care Team Attending Physician - Dewey [...] MD, Asim Singleton Where: [facility] Patient Educationon 06-02-20 Patient Education Urology [...] these instructions at home: Medicines ? Take vhbn-cov-flqkect and prescription medicines only as told by [...] of your (more content not included)... Normal [facility] Provider Letteron 06-02-2022 Provider Letter June 02, 2022 [facility] EUNICE [address] [facility] [place] [address] ESTUARDOEUNICE 1955 To Whom It May Concern, Please excuse above patient from work. Date of Appointment: From: 06/02/2022 To: 06/02/2022 May Return to Work On:06/02/2022 Restrictions: none Comments: Shayy was with her Eunice for his appointment at our office today, any questions please call our office Sincerely, [facility] [address], [place] [address] Normal [facility] RAD - MRI Reporton 2 RAD - MRI Report [id number] .00CD:127 Normal [facility] Urology Office/Clinic Noteon 06-02-2022 Urology Office/Clinic Note Chief Complaint Patient in office for f/u to MRI of the prostate HPI Staff Patient in office for f/u to MRI of the Prostate done on 05/26/22 @ [facility]. MRI shows a focal area of T2 [...] Information Dewey COTTO, Milvia Lucia, URL, [facility] [address], [facility] [place] [phone] Additional Instructions: Patient Education Erectile Dysfunction I, [...] 6 refi (more content not included)... Normal [facility] Comment on above: Result Comment: Elec tronically Signed By: LuMilvia robb MD\.br\Date and Time Signed: 06/02/22 12:00 EDT\.br\Electronically Co-Signed By: Paty Maher MA.br\Date and Time Co-Signed: 06/02/22 10:08 EDT Creatinine (Bld) [Mass/Vol]O rdered By: Milvia Palomo on 05-26-2022 Creatinine [Mass/Vol] 0.8 mg/dL 0.6-1.3 [facility] Comment on above: ER/ESD physician is notified/shown all ISTAT results.Critical values may be confirmed by laboratory testing ifdeemed necessary by ER attending doctor. No Panel InformationOrdered By: Milvia Palomo on 05-26-2022 POC Estimated GFR > 60 [facility] Comment on above: GFR estimated refere nce range: According to KDOQI guidelines, <60 ml/min/1.73m2 is sufficient to diagnose a patient with chronic kidney disease. POC Estimated GFR Non- Amer > 60 [facility] Screenson 04-29-2022 Screens [id number]# 1.00CD:127 Normal [facility] Screens [id number] .00CD:127 Normal [facility] Patient Educationon 04-21-20 Patient Education Oncology Prostate Cancer Screening The [...] of these risk factors: ? Being of -Indian descent. ? Having a family history of [...] Are older than age 55. ? Are -Indian. ? Have a father, brother, or uncle [...] 05/19/2018 Document R (more content not included)... [facility] Provider Letteron 04-21-2022 Provider Letter April 21, 2022 EUNICE [address]TE [address] [place] [address] EUNICE MARTE 1955 To Whom It May Concern, Please excuse above patient from work. 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 Normal [facility] Comment on above: Result Comment: Elec tronically Signed By: Milvia Palomo MD\.br\Date and Time Signed: 04/21/22 17:24 EDT\.br\Electronically Co-Signed By: Lamar Lowry\.br\Date and Time Co-Signed: 04/21/22 12:13 EDT CBC AUTO DIFFon 01-26-2022 BASO # 0.1 103/ul Normal 0.0-0.1 [facility] Comment on above: Performed By: #### P TT, PT #### [facility] [address] [address] [address] Marcell Luque Basophils/100 WBC (Bld) 1.1 % Normal 0.2-2.0 [facility] Comment on above: Performed By: #### P TT, PT #### [facility] [address] [address] [address] Marcell Luque EO # 0.3 103/ul Normal 0.0-0.7 [facility] Comment on above: Performed By: #### P TT, PT #### [facility] [address] [address] [address] Marcell Luque Eosinophils/100 WBC (Bld) 5.0 % Normal 0.9-7.0 [facility] Comment on above: Performed By: #### P TT, PT #### [facility] [address] [address] [address] Marcell Luque Erythrocyte distribution width (RBC) [Ratio] 13.0 % Normal 11.0-15.0 [facility] Comment on above: Performed By: #### P TT, PT #### [facility] [address] [place] [address] Dr. Marcell Luque Hematocrit (Bld) [Volume fraction] 44.3 % Normal 42.0-54.0 [facility] Comment on above: Performed By: #### P TT, PT #### [facility] [address] [place] [address] Dr. Marcell Luque Hemoglobin (Bld) [Mass/Vol] 14.3 g/dL Normal 14.0-18.0 [facility] Comment on above: Performed By: #### P TT, PT #### [facility] [address] [place] [address] Dr. Marcell Luque IG # 0.01 10e3/ul Normal 0.00-0.03 [facility] Comment on above: Performed By: #### P TT, PT #### [facility] [address] [place] [address] Dr. Marcell Luque IG % 0.2 % Normal 0.0-0.5 [facility] Comment on above: Performed By: #### P TT, PT #### [facility] [address] [place] [address] Dr. Marcell Luque LYMPH # 2.1 103/ul Normal 1.2-3.8 [facility] Comment on above: Performed By: #### P TT, PT #### [facility] [address] [place] [address] Dr. Marcell Luque Lymphocytes/100 WBC (Bld) 32.6 % Normal 20.5-60.0 [facility] Comment on above: Performed By: #### P TT, PT #### [facility] [address] [place] [address] Dr. Marcell Luque MANUAL DIFF REQ NO Normal [facility] Comment on above: Performed By: #### P TT, PT #### [facility] [address] [place] [address] Dr. Marcell Luque MCH (RBC) [Entitic mass] 27.7 pg Normal 25.9-34.0 [facility] Comment on above: Performed By: #### P TT, PT #### [facility] [address] [place] [address] Dr. Marcell Luque MCHC (RBC) [Mass/Vol] 32.3 g/dL Normal 29.9-35.2 [facility] Comment on above: Performed By: #### P TT, PT #### [facility] [address] [place] [address] Dr. Marcell Luque MCV (RBC) [Entitic vol] 85.7 fL Normal 80.0-94.0 [facility] Comment on above: Performed By: #### P TT, PT #### [facility] [address] [place] [address] Dr. Marcell Luque MONO # 0.4 103/ul Normal 0.3-0.8 [facility] Comment on above: Performed By: #### P TT, PT #### [facility] [address] [place] [address] Dr. Marcell Luque Monocytes/100 WBC (Bld) 6.9 % Normal 1.7-12.0 [facility] Comment on above: Performed By: #### P TT, PT #### [facility] [address] [place] [address] Dr. Marcell Luque NEUT # 3.5 103/ul Normal 1.4-6.5 [facility] Comment on above: Performed By: #### P TT, PT #### [facility] [address] [place] [address] Dr. Marcell Luque Neutrophils/100 WBC (Bld) 54.2 % Normal 43.0-75.0 [facility] Comment on above: Performed By: #### P TT, PT #### [facility] [address] [place] [address] Dr. Marcell Luque Platelet mean volume (Bld) [Entitic vol] 11.9 fL Normal 9.5-13.5 [facility] Comment on above: Performed By: #### P TT, PT #### [facility] [address] [place] [address] Dr. Marcell Luque PLT 268 103/ul Normal 150-450 [facility] Comment on above: Performed By: #### P TT, PT #### [facility] [address] [place] [address] Dr. Marcell Luque RBC 5.17 106/ul Normal 4.70-6.10 [facility] Comment on above: Performed By: #### P TT, PT #### [facility] [address] [place] [address] Dr. Marcell Luque WBC 6.4 103/ul Normal 4.0-11.0 [facility] Comment on above: Performed By: #### P TT, PT #### [facility] [address] [place] [address] Dr. Marcell Luque GLYCOHEMOGLOBIN A1Con 2021 ADA RECOMMENDATION SEE BELOW Normal [facility] Comment on above: Result Comment: ADA RECOMMENDED LIMIT 4.0 - 6.0 ADA THERAPEUTIC TARGET < 7.0 ACTION SUGGESTED > 7.0 Performed By: #### A 1C #### [facility] [address] [place] [address] Dr. Marcell Luque Glucose [Mass/Vol] 272 mg/dL Normal [facility] Comment on above: Performed By: #### A 1C #### [facility] [address] [place] [address] Dr. Marcell Luque HbA1c (Bld) [Mass fraction] 11.1 % Critically high 4.5-6.2 [facility] Comment on above: Performed By: #### A 1C #### [facility] [address] [place] [address] Dr. Marcell Luque LIPID PROFILEon 01-26-2022 CHOL-HDL RATIO NORM SEE BELOW Normal [facility] Comment on above: Result Comment: 3.3 - 4.4 LOW RISK 4.4 - 7.1 AVERAGE RISK 7.1 - 11.0 MODERATE RISK >11.0 HIGH RISK Performed By: #### L KALPESH, LIPID, BMP #### [facility] [address] [place] [address] Dr. Marcell Luque Cholesterol [Mass/Vol] 219 mg/dL Critically high <=200 [facility] Comment on above: Performed By: #### L IVER, LIPID, BMP #### [facility] [address] [address] [address] Marcell Luque Cholesterol in HDL [Mass/Vol] 42 mg/dL Normal 40-60 [facility] Comment on above: Performed By: #### L IVER, LIPID, BMP #### [facility] [address] [address] [address] Marcell Luque Cholesterol in LDL [Mass/Vol] 151.8 mg/dL Normal [facility] Comment on above: Performed By: #### L IVER, LIPID, BMP #### [facility] [address] [place] [address] Dr. Marcell Luque Cholesterol.total/Cho lesterol in HDL [Mass ratio] 5.2 {ratio} Normal [facility] Comment on above: Performed By: #### L IVER, LIPID, BMP #### [facility] [address] [place] [address] Dr. Marcell Luque HDL NORMAL > or = 60 mg/dl - LO W CARDIOVASCULAR RISK <40 mg/dl - HIGH CARDIOVASCULAR RISK Normal [facility] Comment on above: Performed By: #### L IVER, LIPID, BMP #### [facility] [address] [place] [address] Dr. Marcell Luque LDL CALC NORMAL SEE BELOW Normal [facility] Comment on above: Result Comment: <100 mg/dl OPTIMAL 100 - 129 mg/dl NEAR OR ABOVE OPTIMAL 130 - 159 mg/dl BORDERLINE HIGH 160 - 189 mg/dl HIGH >190 mg/dl VERY HIGH Performed By: #### L IVER, LIPID, BMP #### [facility] [address] [address] [address] Marcell Luque Triglyceride [Mass/Vol] 126 mg/dL Normal <=150 [facility] Comment on above: Performed By: #### L IVER, LIPID, BMP #### [facility] [address] [place] [address] Dr. Marcell Luque VLDL CALC 25.2 mg/dL Normal [facility] Comment on above: Performed By: #### L IVER, LIPID, BMP #### [facility] [address] [place] [address] Dr. Marcell Luque LIVER PROFILEon 01-26-2022 Albumin [Mass/Vol] 3.8 g/dL Normal 3.4-5.0 [facility] Comment on above: Performed By: #### L IVER, LIPID, BMP #### [facility] [address] [place] [address] Dr. Marcell Luque Albumin/Globulin [Mass ratio] 1.0 {ratio} Normal [facility] Comment on above: Performed By: #### L IVER, LIPID, BMP #### [facility] [address] [place] [address] Dr. Marcell Luque ALP [Catalytic activity/Vol] 106 U/L Normal 46-116 [facility] Comment on above: Performed By: #### L IVER, LIPID, BMP #### [facility] [address] [place] [address] Dr. Marcell Luque ALT [Catalytic activity/Vol] 34 U/L Normal 16-63 [facility] Comment on above: Performed By: #### L IVER, LIPID, BMP #### [facility] [address] [place] [address] Dr. Marcell Luque AST [Catalytic activity/Vol] 19 U/L Normal 15-37 [facility] Comment on above: Performed By: #### L IVER, LIPID, BMP #### [facility] [address] [place] [address] Dr. Marcell Luque BILI, CONJUGATED 0.1 mg/dL Normal 0.0-0.2 [facility] [place] [facility] Comment on above: Performed By: #### L IVER, LIPID, BMP #### [facility] [address] [place] [address] Dr. Marcell Luque Bilirubin [Mass/Vol] 0.5 mg/dL Normal 0.2-1.0 [facility] Comment on above: Performed By: #### L IVER, LIPID, BMP #### [facility] [address] [place] [address] Dr. Marcell Luque Globulin (S) [Mass/Vol] 3.9 g/dL Normal [facility] Comment on above: Performed By: #### L IVER, LIPID, BMP #### [facility] [address] [place] [address] Dr. Marcell Luque Protein [Mass/Vol] 7.7 g/dL Normal 6.4-8.2 [facility] Comment on above: Performed By: #### L IVER, LIPID, BMP #### [facility] [address] [address] [address] Marcell Luque PROF CHEM 8 (BAS METB)on Anion gap [Moles/Vol] 12.1 mmol/L Normal [facility] Comment on above: Performed By: #### L IVER, LIPID, BMP #### [facility] [address] [place] [address] Dr. Marcell Luque Calcium [Mass/Vol] 9.3 mg/dL Normal 8.5-10.1 [facility] Comment on above: Performed By: #### L IVER, LIPID, BMP #### [facility] [address] [place] [address] Dr. Marcell Luque Chloride [Moles/Vol] 100 mmol/L Normal 98-107 [facility] Comment on above: Performed By: #### L IVER, LIPID, BMP #### [facility] [address] [place] [address] Dr. Marcell Luque CO2 [Moles/Vol] 29.1 mmol/L Normal 21.0-32.0 [facility] [place] [facility] Comment on above: Performed By: #### L IVER, LIPID, BMP #### [facility] [address] [place] [address] Dr. Marcell Luque Creatinine [Mass/Vol] 1.23 mg/dL Normal 0.70-1.30 [facility] Comment on above: Performed By: #### L IVER, LIPID, BMP #### [facility] [address] [place] [address] Dr. Marcell Luque EGFR-AF [place] >60 Normal >=60 [facility] [place] [facility] Comment on above: Performed By: #### L IVER, LIPID, BMP #### [facility] [address] [place] [address] Dr. Marcell Luque EGFR-NON AF [place] 59 mL/min/1.73m2 Critically low >=60 [facility] Comment on above: Performed By: #### L IVER, LIPID, BMP #### [facility] [address] [place] [address] Dr. Marcell Luque Glucose [Mass/Vol] 358 mg/dL Critically high 74-106 [facility] Comment on above: Performed By: #### L IVER, LIPID, BMP #### [facility] [address] [place] [address] Dr. Marcell Luque Potassium [Moles/Vol] 4.2 mmol/L Normal 3.5-5.1 [facility] Comment on above: Performed By: #### L IVER, LIPID, BMP #### [facility] [address] [place] [address] Dr. Marcell Luque Sodium [Moles/Vol] 137 mmol/L Normal 136-145 [facility] Comment on above: Performed By: #### L IVER, LIPID, BMP #### [facility] [address] [place] [address] Dr. Marcell Luque Urea nitrogen [Mass/Vol] 10.0 mg/dL Normal 7.0-18.0 [facility] Comment on above: Performed By: #### L IVER, LIPID, BMP #### [facility] [address] [place] [address] Dr. Marcell Luque Urea nitrogen/Creatinine [Mass ratio] 8.1 mg/mg Normal [facility] Comment on above: Performed By: #### L IVER, LIPID, BMP #### [facility] [address] [place] [address] Dr. Marcell Luque VITAMIN D 25 OHon 01-26-2022 VIT D 25-OH 40.2 ng/mL Normal [facility] Comment on above: Performed By: #### P TT, PT #### [facility] [address] [place] [address] Dr. Marcell Luque VIT D RANGES SEE BELOW Normal [facility] Comment on above: Result Comment: <20 ng/mL Vit D deficient 20 - <30 ng/mL Vit D insufficient 30 - 100 ng/mL Vit D sufficient >100 ng/mL Potential Toxicity Performed By: #### P TT, PT #### [facility] [address] [place], [place] [address] Dr. Marcell Luque Protein S Activityon 019 Protein [Mass/Vol] 101 % Normal 77-116 [facility] Comment on above: Result Comment: Patients on [...] APA, PTT, PT, FA8, DRVT, PROCAC, PROSAC ####[facility] [address] [place], [place] [id number] Lab Director: Stas Irving MD APTTon 06-15-2019 aPTT Coag (Bld) [Time] 29.6 s Normal 20.5-30.5 [facility] Comment on above: Performed By: #### H OCYS, APA, PTT, PT, FA8, DRVT, PROCAC, PROSAC ####[facility] [address] [place], [place] [id number] Lab Director: Stas Irving MD Dilute Deepak Viperon 06-15 Dilute Deepak Viper Negative Normal [facility] Comment on above: Performed By: #### H OCYS, APA, PTT, PT, FA8, DRVT, PROCAC, PROSAC ####[facility] [address] [place], [place] [id number] Lab Director: Stas Irving MD Factor VIII Activityon 06-15 Factor VIII Activity 173 % High 50-150 [facility] Comment on above: Performed By: #### H OCYS, APA, PTT, PT, FA8, DRVT, PROCAC, PROSAC ####[address] [id number] Lab Director: Stas Irving MD PTon 06-15-2019 INR Coag (PPP) [Relative time] 1.1 {INR} Normal [facility] Comment on above: Result Comment: Therapeutic Range: Moderate Anticoagulant Intensity: INR = 2.0-3.0 High Anticoagulant Intensity: INR = 2.5-3.5 Performed By: #### H OCYS, APA, PTT, PT, FA8, DRVT, PROCAC, PROSAC ####[address] [address] lab Director: Stas Irving MD PT Coag (PPP) [Time] 11.8 s Normal 9.0-12.0 [facility] Comment on above: Performed By: #### H OCYS, APA, PTT, PT, FA8, DRVT, PROCAC, PROSAC ####[facility] [address] [place] [address] lab Director: Stas Irving MD Protein C Activityon 019 Protein [Mass/Vol] 130 % Normal >80 [facility] Comment on above: Result Comment: Patients on [...] APA, PTT, PT, FA8, DRVT, PROCAC, PROSAC ####[address] [id number] lab Director: Stas Irving MD Anti-Phospholipid Abon 06-12 Antiphospholipid IgA 15.3 APU High <12 [facility] Comment on above: Result Comment: Reference Range: 12 - 15 Equivocal >15 Positive Performed By: #### H OCYS, APA, PTT, PT, FA8, DRVT, PROCAC, PROSAC ####[employer] [address] [place], [place] [id number] Lab Director: Stas Irving MD Antiphospholipid IgG 2.7 GPU Normal <20 [facility] Comment on above: Result Comment: Reference Range: 20.0 - 29.9 Low Positive 30.0 - 79.9 Moderate Positive >79.9 High Positive Performed By: #### H OCYS, APA, PTT, PT, FA8, DRVT, PROCAC, PROSAC ####[facility] [address] [place], [place] [id number] Lab Director: Stas Irving MD Antiphospholipid IgM 4.7 MPU Normal <20 [facility] Comment on above: Result Comment: Reference Range: 20.0 - 29.9 Low Positive 30.0 - 79.9 Moderate Positive >79.9 High Positive Performed By: #### H OCYS, APA, PTT, PT, FA8, DRVT, PROCAC, PROSAC ####[facility] [address] [place], [place] [id number] Lab Director: Stas Irving MD Basic Metabolic Panel 05-22 Anion gap [Moles/Vol] 12 mmol/L 9 - 17 mmol/L [place] Bun/Cre Ratio NOT REPORTED [place] Calcium [Mass/Vol] 9.6 mg/dL 8.6 - 10. 4 mg/dL [place] Chloride [Moles/Vol] 97 mmol/L Low 98 - 10 7 mmol/L [place] CO2 [Moles/Vol] 29 mmol/L 20 - 31 mmol/L [place] Creatinine [Mass/Vol] 1.08 mg/dL 0.7 - 1.2 mg/dL [place] GFR >60 >60 mL/min [place] GFR Non- >60 >60 mL/min [place] GFR/1.73 sq M predicted among non-blacks MDRD (S/P/Bld) [Vol rate/Area] [place] Comment on above: Average GFR for 60-6 9 years old: 85 mL/min/1.73sq m Chronic Kidney Disease: <60 mL/min/1.73sq m Kidney failure: <15 mL/min/1.73sq m eGFR calculated using average adult body mass. Additional eGFR calculator available at: http://www.[employer]/multiple_crcl_2012.htm GFR/1.73 sq M predicted among non-blacks MDRD (S/P/Bld) [Vol rate/Area] NOT REPORTED [place] Glucose [Mass/Vol] 198 mg/dL High 70 - 99 mg/dL [place] Interpretation and review of laboratory results Abnormal [place] Potassium [Moles/Vol] 3.9 mmol/L 3.7 - 5.3 mmol/L [place] Sodium [Moles/Vol] 138 mmol/L 135 - 144 mmol/L [place] Urea nitrogen [Mass/Vol] 14 mg/dL 8 - 23 mg/dL [place] Basic Metabolic Profon 06-09 (cont.) Normal [facility] Comment on above: Result Comment: Aver age GFR for 60-69 years old: 85 mL/min/1.73sq m Chronic Kidney Disease: <60 mL/min/1.73sq m Kidney failure: <15 mL/min/1.73sq m eGFR calculated using average adult body mass. Additional eGFR calculator available at: http://www.[employer]/multiple_crcl_2011.htm Performed By: #### C DP, BMP ####[facility] [address] [place] [address] Lab Director: Stas Irving MD Anion gap [Moles/Vol] 12 mmol/L Normal - [facility] Comment on above: Performed By: #### C DP, BMP ####[facility] [address] [place] [address] Lab Director: Stas Irving MD Calcium [Mass/Vol] 9.6 mg/dL Normal 8.6-10.4 [facility] Comment on above: Performed By: #### C DP, BMP ####[facility] [address] [place], [place] [phone] Director: Stas Irving MD Chloride [Moles/Vol] 97 mmol/L Low 98-107 [facility] Comment on above: Performed By: #### C DP, BMP ####[facility] [address] [place], [place] [phone] Director: Stas Irving MD CO2 [Moles/Vol] 29 mmol/L Normal 20-31 [facility] Comment on above: Performed By: #### C DP, BMP ####[facility] [address] [place] [address] [phone] Director: Stas Irving MD Creatinine [Mass/Vol] 1.08 mg/dL Normal 0.70-1.20 [facility] Comment on above: Performed By: #### C DP, BMP ####[facility] [address] [place] [address] [phone] Director: Stas Irving MD GFR, Amer >60 Normal >60 [facility] Comment on above: Performed By: #### C DP, BMP ####[facility] [address] [place] [address] [phone] Director: Stas Irving MD GFR,non Amer >60 Normal >60 [facility] Comment on above: Performed By: #### C DP, BMP ####[facility] [address] [place], [place] [phone] Director: Stas Irving MD Glucose [Mass/Vol] 198 mg/dL High 70-99 [facility] Comment on above: Performed By: #### C DP, BMP ####[facility] [address] [place] [address] Lab Director: Stas Irving MD Potassium [Moles/Vol] 3.9 mmol/L Normal 3.7-5.3 [facility] Comment on above: Performed By: #### C DP, BMP ####[facility] [address] [place], [place] [phone])[phone] Director: Stas Irving MD Sodium [Moles/Vol] 138 mmol/L Normal 135-144 [facility] Comment on above: Performed By: #### C DP, BMP ####[facility] [address] [place] [address] [phone] Director: Stas Irving MD Urea nitrogen [Mass/Vol] 14 mg/dL Normal 8-23 [facility] Comment on above: Performed By: #### C DP, BMP ####[facility] [address] [place] [address] [phone] Director: Stas Irving MD BUN/CRE Ratio NOT REPORTED Normal 9- [facility] Comment on above: Performed By: #### C DP, BMP ####[facility] [address] [place] [address] [phone])[phone] Director: Stas Irving MD Staging: NOT REPORTED Normal [facility] Comment on above: Performed By: #### C DP, BMP ####[facility] [address] [place] [address] [phone] Director: Stas Irving MD CBC Auto Differentialon 05-22 Basophils (Bld) [#/Vol] 0.07 10*3/uL [place] Basophils/100 WBC (Bld) 1 % 0 - 2 % [place] Differential Type NOT REPORTED [place] Eosinophils (Bld) [#/Vol] 0.77 10*3/uL High [place] Eosinophils/100 WBC (Bld) 10 % High 1 - 4 % [place] Erythrocyte distribution width (RBC) [Ratio] 13.7 % 11.8 - 14.4 % [place] Hematocrit (Bld) [Volume fraction] 53.7 % High 40.7 - 50.3 % [place] Hemoglobin (Bld) [Mass/Vol] 17.0 g/dL 13 - 17 g/dL [place] Immature granulocytes (Bld) [#/Vol] 10*3/uL [place] Immature granulocytes (Bld) [#/Vol] 0 % 0 [place] Interpretation and review of laboratory results Abnormal [place] Lymphocytes (Bld) [#/Vol] 2.66 10*3/uL [place] Lymphocytes/100 WBC (Bld) 36 % 24 - 43 % [place] MCH (RBC) [Entitic mass] 28.3 pg 25.2 - 33.5 pg [place] MCHC (RBC) [Mass/Vol] 31.7 g/dL 28.4 - 34.8 g/dL [place] MCV (RBC) [Entitic vol] 89.5 fL 82.6 - 102.9 fL [place] Monocytes (Bld) [#/Vol] 0.89 10*3/uL [place] Monocytes/100 WBC (Bld) 12 % 3 - 12 % [place] Platelet mean volume (Bld) [Entitic vol] 10.9 fL 8.1 - 13.5 fL [place] Platelets (Bld) [#/Vol] NOT REPORTED [place] Platelets (Bld) [#/Vol] 189 10*3/uL [place] RBC (Bld) [#/Vol] 6.00 10*6/uL High 4.21 - 5.7 7 m/uL [place] RBC morphology finding Nom (Bld) NOT REPORTED [place] Segmented neutrophils/100 WBC (Bld) 41 % 36 - 65 % [place] Segs Absolute 3.07 [place] WBC (Bld) [#/Vol] 0.0 10*3/uL 0.0 per 10 0 WBC [place] WBC (Bld) [#/Vol] 7.5 10*3/uL [place] WBC Morphology NOT REPORTED [place] CBC with Diffon 06-09-2019 Abs. Basophil 0.07 k/uL Normal 0.00-0.20 [facility] Comment on above: Performed By: #### C DP, BMP ####[address] [address])[phone] Director: Stas Irving MD Abs.Imm.Granulocyte <0.03 Normal 0.00-0.30 [facility] [facility] Comment on above: Performed By: #### C DP, BMP ####[place], [place] [address])[phone] Director: Stas Irving MD Abs.Neutrophil (Seg) 3.07 k/uL Normal 1.50-8.10 [facility] Comment on above: Performed By: #### C DP, BMP ####[address] [address])[phone] Director: Stas Irving MD Basophils/100 WBC (Bld) 1 % Normal 0-2 [facility] Comment on above: Performed By: #### C DP, BMP ####[address] [address])[phone] Director: Stas Irving MD Eosinophils (Bld) [#/Vol] 0.77 10*3/uL High 0.00-0.44 [facility] Comment on above: Performed By: #### C DP, BMP ####[address] [address])[phone] Director: Stas Irving MD Eosinophils/100 WBC (Bld) 10 % High 1-4 [facility] Comment on above: Performed By: #### C DP, BMP ####[address] [phone] Director: Stas Irving MD Erythrocyte distribution width (RBC) [Ratio] 13.7 % Normal 11.8-14.4 [facility] Comment on above: Performed By: #### C DP, BMP ####[address] [phone] Director: Stas Irving MD Hematocrit (Bld) [Volume fraction] 53.7 % High 40.7-50.3 [facility] Comment on above: Performed By: #### C DP, BMP ####[address] [address])[phone] Director: Stas Irving MD Hemoglobin (Bld) [Mass/Vol] 17.0 g/dL Normal 13.0-17.0 [facility] Comment on above: Performed By: #### C DP, BMP ####[address] [phone] Director: Stas Irving MD Immature granulocytes (Bld) [#/Vol] 0 % Normal 0 [facility] Comment on above: Performed By: #### C DP, BMP ####[address] [phone] Director: Stas Irving MD Lymphocytes (Bld) [#/Vol] 2.66 10*3/uL Normal 1.10-3.70 [facility] Comment on above: Performed By: #### C DP, BMP ####[address] [phone] Director: Stas Irving MD Lymphocytes/100 WBC (Bld) 36 % Normal 24-43 [facility] Comment on above: Performed By: #### C DP, BMP ####[address] [phone] Director: Stas Irving MD MCH (RBC) [Entitic mass] 28.3 pg Normal 25.2-33.5 [facility] Comment on above: Performed By: #### C DP, BMP ####[address] [phone] Director: Stas Irving MD MCHC (RBC) [Mass/Vol] 31.7 g/dL Normal 28.4-34.8 [facility] Comment on above: Performed By: #### C DP, BMP ####[address] [phone] Director: Stas Irving MD MCV (RBC) [Entitic vol] 89.5 fL Normal 82.6-102.9 [facility] Comment on above: Performed By: #### C DP, BMP ####[address] [address])[phone] Director: Stas Irving MD Monocytes (Bld) [#/Vol] 0.89 10*3/uL Normal 0.10-1.20 [facility] Comment on above: Performed By: #### C DP, BMP ####[address] [phone] Director: Stas Irving MD Monocytes/100 WBC (Bld) 12 % Normal 3-12 [facility] Comment on above: Performed By: #### C DP, BMP ####[address] [phone] Director: Stas Irving MD Neutrophil (Seg) 41 % Normal 36-65 [facility] Comment on above: Performed By: #### C DP, BMP ####[address] [phone] Director: Stas Irving MD NRBC Automated 0.0 per 100 WBC Normal 0.0 [facility] Comment on above: Performed By: #### C DP, BMP ####[facility] [address] [place] [address] Lab Director: Stas Irving MD Platelet mean volume (Bld) [Entitic vol] 10.9 fL Normal 8.1-13.5 [facility] Comment on above: Performed By: #### C DP, BMP ####[facility] [address] [place] [address] Lab Director: Stas Irving MD Platelets (Bld) [#/Vol] 189 10*3/uL Normal 138-453 [facility] Comment on above: Performed By: #### C DP, BMP ####[address] [address] Lab Director: Stas Irving MD RBC (Bld) [#/Vol] 6.00 10*6/uL High 4.21-5.77 [facility] Comment on above: Performed By: #### C DP, BMP ####[address] [address] Lab Director: Stas Irving MD WBC (Bld) [#/Vol] 7.5 10*3/uL Normal 3.5-11.3 [facility] Comment on above: Performed By: #### C DP, BMP ####[address] [address] Lab Director: Stas Irving MD Auto Diff Performed NOT REPORTED Normal [facility] Comment on above: Performed By: #### C DP, BMP ####[facility] [address] [place] [address] Lab Director: Stas Irving MD Platelets (Bld) [#/Vol] NOT REPORTED Normal [facility] Comment on above: Performed By: #### C DP, BMP ####[facility] [address] [place] [address] lab Director: Stas Irving MD RBC morphology finding Nom (Bld) NOT REPORTED Normal [facility] Comment on above: Performed By: #### C DP, BMP ####[facility] [address] [place] [address] lab Director: Stas Irving MD WBC Morphology NOT REPORTED Normal [facility] Comment on above: Performed By: #### C DP, BMP ####[facility] [address] [place] [address] lab Director: Stas Irving MD DNA Testingon 06-09-2019 DNA Testing (NOTE) [id number] [facility] MOLECULAR PATHOLOGY LABORATORY [address] [place] [phone] FACTOR V LEIDEN MUTATION ANALYSIS REPORT [facility] Aron Llanes MD, Ravinder Pratt MD Specimen(s) Received: Peripheral blood, FVLI Clinical Information: CVA RESULTS: MOLECULAR GENETIC DIAGNOSIS: Negative for Factor V Leiden Mutation INTERPRETATION: The Factor V Leiden mutation (1691GA) [c.1601G>A(p.Gnr879Lz n)] was not detected in this study. This patient may, however, still be at risk for venous thrombosis due to another genetic predisposition including the Factor II (Prothrombin 78015JN) mutation or either of the 5, 10-methylenetetrahydr ofolate reductase (MTHFR) mutations (677T and D1847N) Additional molecular testing is available for these [...] which predicts a single amino acid replacement ([id number]) at one of three activated protein C [...] the Invader Factor V test that utilizes [employer] chemistry for detecting gene-specific sequences. Target amplification [...] Invader and Cleavase are registered trademarks of [employer] This test is performed pursuant to an agreement with [employer] Electronically Signed Out Ravinder Pratt M.D. Normal [facility] Comment on above: Performed By: #### P PPFVL ####[facility] [place] [address] Lab Director: Stas Irving MD DNA Testing (NOTE) [id number] [facility] MOLECULAR PATHOLOGY LABORATORY [address] [place], [place] [phone] FACTOR II (PROTHROMBIN) MUTATION ANALYSIS REPORT [facility] Aron Llanes MD, Ravinder Pratt MD Specimen(s) Received: Peripheral blood, PTI Clinical Information: CVA RESULTS: MOLECULAR GENETIC DIAGNOSIS: Negative for Prothrombin 27233G Mutation INTERPRETATION: The Factor II (Prothrombin) mutation (72901OJ) [c.*97G>A] was not detected in this study. This patient may, however, still be at risk for venous thrombosis due to another genetic predisposition including the Factor V Leiden (1691GA) mutation or either of the 5, 10-methylenetetrahydr ofolate reductase (MTHFR) mutations (677T and D5810C). Additional molecular testing is available for these [...] been identified in exon 14 at position 00435 of the prothrombin gene (42795OQ). This allele has a population frequency of 1.2% and is associated with a 2.8 fold increased risk of venous thrombosis in individuals of [place] ancestry. Patient DNA is assayed for the presence of wild type or mutant gene sequences in the Factor II (Prothrombin) gene by the Invader Factor II test that utilizes [employer] chemistry for detecting gene-specific sequences. Target amplification [...] Invader and Cleavase are registered trademarks of [employer]. This test is performed pursuant to an agreement with [employer]. Electronically Signed Out Ravinder Pratt M.D. Normal [facility] Comment on above: Performed By: #### P PPPT ####[facility] [address] [place] [address] Lab Director: Stas Irving MD Homocysteineon 06-09-2019 Homocysteine 9.4 umol/L Normal <15.0 [facility] Comment on above: Performed By: #### H OCYS, APA, PTT, PT, FA8, DRVT, PROCAC, PROSAC ####[facility] [address] [place] [address] Lab Director: Stas Irving MD Homocysteine, Serumon 2018 Homocysteine 9.4 umol/L <15.0 [place] POC Glucose Fingerstickon Glucose [Mass/Vol] 276 mg/dL High 75 - 110 mg/dL [place] Interpretation and review of laboratory results Abnormal [place] Glucose [Mass/Vol] 190 mg/dL High 75 - 110 mg/dL [place] Interpretation and review of laboratory results Abnormal [place] Basic Metabolic Panelon 05-22 Anion gap [Moles/Vol] 14 mmol/L 9 - 17 mmol/L [place] Bun/Cre Ratio NOT REPORTED [place] Calcium [Mass/Vol] 9.2 mg/dL 8.6 - 10. 4 mg/dL [place] Chloride [Moles/Vol] 96 mmol/L Low 98 - 10 7 mmol/L [place] CO2 [Moles/Vol] 24 mmol/L 20 - 31 mmol/L [place] Creatinine [Mass/Vol] 0.79 mg/dL 0.7 - 1.2 mg/dL [place] GFR >60 >60 mL/min [place] GFR Non- >60 >60 mL/min [place] GFR/1.73 sq M predicted among non-blacks MDRD (S/P/Bld) [Vol rate/Area] NOT REPORTED [place] GFR/1.73 sq M predicted among non-blacks MDRD (S/P/Bld) [Vol rate/Area] [place] Comment on above: Average GFR for 60-6 9 years old: 85 mL/min/1.73sq m Chronic Kidney Disease: <60 mL/min/1.73sq m Kidney failure: <15 mL/min/1.73sq m eGFR calculated using average adult body mass. Additional eGFR calculator available at: http://www.[employer]/SealedMedia_crcl_2011.htm Glucose [Mass/Vol] 225 mg/dL High 70 - 99 mg/dL [place] Interpretation and review of laboratory results Abnormal [place] Potassium [Moles/Vol] 3.3 mmol/L Low 3.7 - 5.3 mmol/L [place] Sodium [Moles/Vol] 134 mmol/L Low 135 - 144 mmol/L [place] Urea nitrogen [Mass/Vol] 11 mg/dL 8 - 23 mg/dL [place] Basic Metabolic Profon 06-08 (cont.) Normal [facility] Comment on above: Result Comment: Aver age GFR for 60-69 years old: 85 mL/min/1.73sq m Chronic Kidney Disease: <60 mL/min/1.73sq m Kidney failure: <15 mL/min/1.73sq m eGFR calculated using average adult body mass. Additional eGFR calculator available at: http://www.[employer]/multiple_crcl_2012.htm Performed By: #### S MAGDY #### [facility] [employer] [employer] [facility] [place] [address] Jewel Hole Driller: Stas Irving MD Anion gap [Moles/Vol] 14 mmol/L Normal 9-17 [facility] Comment on above: Performed By: #### S TROKE #### [facility] [employer] [address] [place] [address] [employer] Driller: Stas Irving MD Calcium [Mass/Vol] 9.2 mg/dL Normal 8.6-10.4 [facility] Comment on above: Performed By: #### S TROKE #### [facility] [address] [place] [address] [employer] Driller: Stas Irving MD Chloride [Moles/Vol] 96 mmol/L Low 98-107 [facility] Comment on above: Performed By: #### S TROKE #### [address] [address] [employer] Driller: Stas Irving MD CO2 [Moles/Vol] 24 mmol/L Normal 20-31 [facility] Comment on above: Performed By: #### S TROKE #### [facility] [employer] [address] [place] [address] [employer] Driller: Stas Irving MD Creatinine [Mass/Vol] 0.79 mg/dL Normal 0.70-1.20 [facility] Comment on above: Performed By: #### S TROKE #### [facility] [employer] [address] [place] [address] Jewel [employer] Driller: Stas Irving MD GFR, Amer >60 Normal >60 [facility] Comment on above: Performed By: #### S TROKE #### [facility] [employer] [address] [place] [address] [employer] Driller: Stas Irving MD GFR,non Amer >60 Normal >60 [facility] Comment on above: Performed By: #### S TROKE #### [facility] [employer] [address] [place] [address] [employer] Driller: Stas Irving MD Glucose [Mass/Vol] 225 mg/dL High 70-99 [facility] Comment on above: Performed By: #### S TROKE #### [address] [address] Jew[employer] Driller: Stas Irving MD Potassium [Moles/Vol] 3.3 mmol/L Low 3.7-5.3 [facility] Comment on above: Performed By: #### S TROKE #### [address] [address] [employer] Driller: Stas Irving MD Sodium [Moles/Vol] 134 mmol/L Low 135-144 [facility] Comment on above: Performed By: #### S TOREYKE #### [address] [address] [employer] Driller: Stas Irving MD Urea nitrogen [Mass/Vol] 11 mg/dL Normal 8- [facility] Comment on above: Performed By: #### S TOREYKE #### [address] [address] [employer] Driller: Stas Irving MD BUN/CRE Ratio NOT REPORTED Normal - [facility] Comment on above: Performed By: #### S TOREYKE #### [address] [address] [employer] Driller: Stas Irving MD Staging: NOT REPORTED Normal [facility] Comment on above: Performed By: #### S TOREYKE #### [address] [address] [employer] Driller: Stas Irving MD CBC Auto Differentialon 05-22 Basophils (Bld) [#/Vol] 0.06 10*3/uL [facility], [place] Basophils/100 WBC (Bld) 1 % 0 - 2 % [place] Differential Type NOT REPORTED [place] Eosinophils (Bld) [#/Vol] 0.56 10*3/uL High [place] Eosinophils/100 WBC (Bld) 8 % High 1 - 4 % [place] Erythrocyte distribution width (RBC) [Ratio] 13.9 % 11.8 - 14.4 % [place] Hematocrit (Bld) [Volume fraction] 50.9 % High 40.7 - 50.3 % [place] Hemoglobin (Bld) [Mass/Vol] 16.8 g/dL 13 - 17 g/dL [place] Immature granulocytes (Bld) [#/Vol] 1 % High 0 [place] Immature granulocytes (Bld) [#/Vol] 0.04 10*3/uL [place] Interpretation and review of laboratory results Abnormal [place] Lymphocytes (Bld) [#/Vol] 2.28 10*3/uL [place] Lymphocytes/100 WBC (Bld) 32 % 24 - 43 % [place] MCH (RBC) [Entitic mass] 28.6 pg 25.2 - 33.5 pg [place] MCHC (RBC) [Mass/Vol] 33.0 g/dL 28.4 - 34.8 g/dL [place] MCV (RBC) [Entitic vol] 86.6 fL 82.6 - 102.9 fL [place] Monocytes (Bld) [#/Vol] 0.79 10*3/uL [place] Monocytes/100 WBC (Bld) 11 % 3 - 12 % [place] Platelet mean volume (Bld) [Entitic vol] 12.0 fL 8.1 - 13.5 fL [place] Platelets (Bld) [#/Vol] 285 10*3/uL [place] Platelets (Bld) [#/Vol] NOT REPORTED [place] RBC (Bld) [#/Vol] 5.88 10*6/uL High 4.21 - 5.7 7 m/uL [place] RBC morphology finding Nom (Bld) NOT REPORTED [place] Segmented neutrophils/100 WBC (Bld) 47 % 36 - 65 % [place] Segs Absolute 3.38 [place] WBC (Bld) [#/Vol] 7.1 10*3/uL [place] WBC (Bld) [#/Vol] 0.3 10*3/uL High 0.0 per 10 0 WBC [place] WBC Morphology NOT REPORTED [place] CBC with Diffon 06-08-2019 Abs. Basophil 0.06 k/uL Normal 0.00-0.20 [facility] Comment on above: Performed By: #### S MAGDY #### [address] [address] Jewel [employer] Driller: Stas Irving MD Abs.Imm.Granulocyte 0.04 k/uL Normal 0.00-0.30 [facility] Comment on above: Performed By: #### S MAGDY #### [address] [address] Jewel [employer] Driller: Stas Irving MD Abs.Neutrophil (Seg) 3.38 k/uL Normal 1.50-8.10 [facility] Comment on above: Performed By: #### S TOREYKE #### [address] [address] Jewel [employer] Driller: Stas Irving MD Basophils/100 WBC (Bld) 1 % Normal 0-2 [facility] Comment on above: Performed By: #### S TROKE #### [address] [address] [employer] Driller: Stas Irving MD Eosinophils (Bld) [#/Vol] 0.56 10*3/uL High 0.00-0.44 [facility] Comment on above: Performed By: #### S TROKE #### [address] [address] Jew[employer] Driller: Stas Irving MD Eosinophils/100 WBC (Bld) 8 % High 1-4 [facility] Comment on above: Performed By: #### S TOREYKE #### [address] [address] [employer] Driller: Stas Irving MD Erythrocyte distribution width (RBC) [Ratio] 13.9 % Normal 11.8-14.4 [facility] Comment on above: Performed By: #### S TOREYKE #### [address] [address] Jewel [employer] Driller: Stas Irving MD Hematocrit (Bld) [Volume fraction] 50.9 % High 40.7-50.3 [facility] Comment on above: Performed By: #### S MGADY #### [address] [address] Jewel [employer] Driller: Stas Irving MD Hemoglobin (Bld) [Mass/Vol] 16.8 g/dL Normal 13.0-17.0 [facility] Comment on above: Performed By: #### S MAGDY #### [address] [address] Jewel [employer] Driller: Stas Irving MD Immature granulocytes (Bld) [#/Vol] 1 % High 0 [facility] Comment on above: Performed By: #### S TOREYKE #### [address] [address] [employer] Driller: Stas Irving MD Lymphocytes (Bld) [#/Vol] 2.28 10*3/uL Normal 1.10-3.70 [facility] Comment on above: Performed By: #### S TROKE #### [address] [address] Jewel [employer] Driller: Stas Irving MD Lymphocytes/100 WBC (Bld) 32 % Normal 24-43 [facility] Comment on above: Performed By: #### S MAGDY #### [address] [address] Jewel Hole Driller: Stas Irving MD MCH (RBC) [Entitic mass] 28.6 pg Normal 25.2-33.5 [facility] Comment on above: Performed By: #### S MAGDY #### [address] [address] Jewel [employer] Driller: Stas Irving MD MCHC (RBC) [Mass/Vol] 33.0 g/dL Normal 28.4-34.8 [facility] Comment on above: Performed By: #### S MAGDY #### [address] [address] Jewel Hole Driller: Stas Irving MD MCV (RBC) [Entitic vol] 86.6 fL Normal 82.6-102.9 [facility] Comment on above: Performed By: #### S MAGDY #### [address] [address] Jewel Hole Driller: Stas Irving MD Monocytes (Bld) [#/Vol] 0.79 10*3/uL Normal 0.10-1.20 [facility] Comment on above: Performed By: #### S MAGDY #### [address] [address] Jewel Hole Driller: Stas Irving MD Monocytes/100 WBC (Bld) 11 % Normal 3-12 [facility] Comment on above: Performed By: #### S MAGDY #### [address] [address] Jewel Hole Driller: Stas Irving MD Neutrophil (Seg) 47 % Normal 36-65 [facility] Comment on above: Performed By: #### S MAGDY #### [address] [address] Jewel Hole Driller: Stas Irving MD NRBC Automated 0.3 per 100 WBC High 0.0 [facility] Comment on above: Performed By: #### S MAGDY #### [address] [address] Jewel Hole Driller: Stas Irving MD Platelet mean volume (Bld) [Entitic vol] 12.0 fL Normal 8.1-13.5 [facility] Comment on above: Performed By: #### S TOREYKE #### [address] [address] Jewel Hole Driller: Stas Irving MD Platelets (Bld) [#/Vol] 285 10*3/uL Normal 138-453 [facility] Comment on above: Performed By: #### S MAGDY #### [address] [address] Jewel Hole Driller: Stas Irving MD RBC (Bld) [#/Vol] 5.88 10*6/uL High 4.21-5.77 [facility] Comment on above: Performed By: #### S MAGDY #### [address] [address] Jewel Hole Driller: Stas Irving MD WBC (Bld) [#/Vol] 7.1 10*3/uL Normal 3.5-11.3 [facility] Comment on above: Performed By: #### S TOREYKE #### [address] [address] Jewel Hole Driller: Stas Irving MD Auto Diff Performed NOT REPORTED Normal [facility] Comment on above: Performed By: #### S TOREYKE #### [address] [address] Jewel Hole Driller: Stas Irving MD Platelets (Bld) [#/Vol] NOT REPORTED Normal [facility] Comment on above: Performed By: #### S TROKE #### [facility] [address] [place], [place] [phone] Jewel Hole Driller: Stas Irving MD RBC morphology finding Nom (Bld) NOT REPORTED Normal [facility] Comment on above: Performed By: #### S TROKE #### [facility] [place], [place] [phone] Jewel Hole Driller: Stas Irving MD WBC Morphology NOT REPORTED Normal [facility] Comment on above: Performed By: #### S TROKE #### [facility] [address] [place] [phone] Jewel Hole Driller: Stas Irving MD Magnesiumon 06-08-2019 Magnesium [Mass/Vol] 2.0 mg/dL Normal 1.6-2.6 [facility] Comment on above: Performed By: #### S TROKE #### [facility] [address] [place] [phone] Jewel [employer] Driller: Stas Irving MD Magnesium [Mass/Vol] 2.0 mg/dL 1.6 - 2 .6 mg/dL [place] POC Glucose Fingerstickon Glucose [Mass/Vol] 288 mg/dL High 75 - 110 mg/dL [place] Interpretation and review of laboratory results Abnormal [place] Glucose [Mass/Vol] 350 mg/dL High 75 - 110 mg/dL [place] Interpretation and review of laboratory results Abnormal [place] Glucose [Mass/Vol] 238 mg/dL High 75 - 110 mg/dL [place] Interpretation and review of laboratory results Abnormal [place] Glucose [Mass/Vol] 244 mg/dL High 75 - 110 mg/dL [place] Interpretation and review of laboratory results Abnormal [place] Phosphoruson 06-08-2019 Phosphate [Mass/Vol] 4.5 mg/dL 2.5 - 4 .5 mg/dL [facility] [place], [place] Phosphorus, Inorg.on 019 Phosphorus, Inorg. 4.5 mg/dL Normal 2.5-4.5 [facility] Comment on above: Performed By: #### C DP, BMP, MG, CINTHYA ####[facility] [address] [place] [address] lab Director: Stas Irving MD VL DUP LOWER EXTREMITY VENOU S BILATERALon 06-08-2019 [facility] Vascular Lower Extremities DVT Study Procedure [facility] of [facility] 06/08/2019 EUNICE Alcantara Date of 1955 Gender Male Age 63 year(s) Race Black Room Number 0515 Height: 72 inch, 182.88 cm Corporate ID [id number] Weight: 220 pounds, 99.8 kg # Patient Acct [id number] BSA: 2.22 m^2 BMI: 29.84 kg/m^2 # MR # [id number] [employer] Field Service Technician Rina Frausto Interpreting Omer Oneil Physician Referring Referring Physician DYLON VICK MEDIA OPERATOR-SHROUDMAN Nurse Practitioner Procedure Type of Study: Veins: [...] !Phasic! ! ! + -------+------+------ + + [facility]- [place], [place] Nav, Mh[employer] Incoming Cardio Results From [employer] - 06/08/2019 6:36 PM EDT [facility] Vascular Lower Extremities DVT Study Procedure Patient Name [facility] Date of Study 06/08/2019 EUNICE Alcantara Date of 1955 Gender Male Age 63 year(s) Race Black Room Number 0515 Height: 72 inch, 182.88 cm Corporate ID [id number] Weight: 220 pounds, 99.8 kg # Patient Acct [id number] BSA: 2.22 m^2 BMI: 29.84 kg/m^2 # MR # [id number] [employer] Field Service Technician Rina Frausto Interpreting Omer Oneil Physician Referring Referring Physician DYLON VICK APRN-SHROUDMAN Nurse Practitioner Procedure Type of Study: Veins: [...] !Phasic! ! ! + -------+------+------ + + [facility] Basic Metabolic Panelon 10- Anion gap [Moles/Vol] 12 mmol/L 9 - 17 mmol/L [facility] Bun/Cre Ratio NOT REPORTED [facility] Calcium [Mass/Vol] 9.3 mg/dL 8.6 - 10. 4 mg/dL [facility] Chloride [Moles/Vol] 97 mmol/L Low 98 - 10 7 mmol/L [facility] [place] CO2 [Moles/Vol] 26 mmol/L 20 - 31 mmol/L [place] Creatinine [Mass/Vol] 0.76 mg/dL 0.7 - 1.2 mg/dL [place] GFR >60 >60 mL/min [place] GFR Non- >60 >60 mL/min [place] GFR/1.73 sq M predicted among non-blacks MDRD (S/P/Bld) [Vol rate/Area] NOT REPORTED [place] GFR/1.73 sq M predicted among non-blacks MDRD (S/P/Bld) [Vol rate/Area] [place] Comment on above: Average GFR for 60-6 9 years old: 85 mL/min/1.73sq m Chronic Kidney Disease: <60 mL/min/1.73sq m Kidney failure: <15 mL/min/1.73sq m eGFR calculated using average adult body mass. Additional eGFR calculator available at: http://www.KidAdmit/multiple_crcl_2011.htm Glucose [Mass/Vol] 232 mg/dL High 70 - 99 mg/dL [place], [place] Potassium [Moles/Vol] 3.4 mmol/L Low 3.7 - 5.3 mmol/L [place] Sodium [Moles/Vol] 135 mmol/L 135 - 144 mmol/L [place] Urea nitrogen [Mass/Vol] 8 mg/dL 8 - 23 mg/dL [place] Basic Metabolic Profon 06-07 (cont.) Normal [facility] Comment on above: Result Comment: Aver age GFR for 60-69 years old: 85 mL/min/1.73sq m Chronic Kidney Disease: <60 mL/min/1.73sq m Kidney failure: <15 mL/min/1.73sq m eGFR calculated using average adult body mass. Additional eGFR calculator available at: http://www.KidAdmit/multiple_crcl_2012.htm Performed By: #### S MAGYD #### [facility] [address] [place] [phone] [employer] Driller: Stas Irvign MD Anion gap [Moles/Vol] 12 mmol/L Normal 9-17 [facility] Comment on above: Performed By: #### S TROKE #### [address] [address] [employer] Driller: Stas Irving MD Calcium [Mass/Vol] 9.3 mg/dL Normal 8.6-10.4 [facility] Comment on above: Performed By: #### S TROKE #### [address] [address] Jewel [employer] Driller: Stas Irving MD Chloride [Moles/Vol] 97 mmol/L Low 98-107 [facility] Comment on above: Performed By: #### S TOREYKE #### [address] [address] [employer]el [employer] Driller: Stas Irving MD CO2 [Moles/Vol] 26 mmol/L Normal 20-31 [facility] Comment on above: Performed By: #### S TOREYKE #### [address] [address] [employer] Driller: Stas Irving MD Creatinine [Mass/Vol] 0.76 mg/dL Normal 0.70-1.20 [facility] Comment on above: Performed By: #### S TOREYKE #### [address] [address] [employer] Driller: Stas Irving MD GFR, Amer >60 Normal >60 [facility] Comment on above: Performed By: #### S TOREYKE #### [address] [address] Jewel [employer] Driller: Stas Irving MD GFR,non Amer >60 Normal >60 [facility] Comment on above: Performed By: #### S TOREYKE #### [address] [place] [address] [employer] Driller: Stas Irving MD Glucose [Mass/Vol] 232 mg/dL High 70-99 [facility] Comment on above: Performed By: #### S MAGDY #### [address] [address] [employer] Driller: Stas Irving MD Potassium [Moles/Vol] 3.4 mmol/L Low 3.7-5.3 [facility] Comment on above: Performed By: #### S MAGDY #### [address] [address] Jewel [employer] Driller: Stas Irving MD Sodium [Moles/Vol] 135 mmol/L Normal 135-144 [facility] Comment on above: Performed By: #### S MAGDY #### [address] [address] [employer] Driller: Stas Irving MD Urea nitrogen [Mass/Vol] 8 mg/dL Normal 8-23 [facility] Comment on above: Performed By: #### S MAGDY #### [address] [address] Jewel [employer] Driller: Stas Irving MD BUN/CRE Ratio NOT REPORTED Normal 9-20 [facility] Comment on above: Performed By: #### S MAGDY #### [address] [address] Jewel [employer] Driller: Stas Irving MD Staging: NOT REPORTED Normal [facility] Comment on above: Performed By: #### S MAGDY #### [address] [address] Jewel [employer] Driller: Stas Irving MD CBC Auto Differentialon 05-22 Basophils (Bld) [#/Vol] 0.08 10*3/uL [facility], [place] Basophils/100 WBC (Bld) 1 % 0 - 2 % [place] Differential Type NOT REPORTED [place] Eosinophils (Bld) [#/Vol] 0.59 10*3/uL [place] Eosinophils/100 WBC (Bld) 8 % High 1 - 4 % [place] Erythrocyte distribution width (RBC) [Ratio] 13.6 % 11.8 - 14.4 % [place] Hematocrit (Bld) [Volume fraction] 51.5 % High 40.7 - 50.3 % [place] Hemoglobin (Bld) [Mass/Vol] 16.7 g/dL 13 - 17 g/dL [place] Immature granulocytes (Bld) [#/Vol] 0 % 0 [place] Immature granulocytes (Bld) [#/Vol] 10*3/uL [place] Interpretation and review of laboratory results Abnormal [place] Lymphocytes (Bld) [#/Vol] 2.32 10*3/uL [place] Lymphocytes/100 WBC (Bld) 32 % 24 - 43 % [place] MCH (RBC) [Entitic mass] 28.2 pg 25.2 - 33.5 pg [place] MCHC (RBC) [Mass/Vol] 32.4 g/dL 28.4 - 34.8 g/dL [place] MCV (RBC) [Entitic vol] 86.8 fL 82.6 - 102.9 fL [place] Monocytes (Bld) [#/Vol] 0.66 10*3/uL [place] Monocytes/100 WBC (Bld) 9 % 3 - 12 % [place] Platelet mean volume (Bld) [Entitic vol] 10.9 fL 8.1 - 13.5 fL [place] Platelets (Bld) [#/Vol] 196 10*3/uL [place] Platelets (Bld) [#/Vol] NOT REPORTED [place] RBC (Bld) [#/Vol] 5.93 10*6/uL High 4.21 - 5.7 7 m/uL [place] RBC morphology finding Nom (Bld) NOT REPORTED [place] Segmented neutrophils/100 WBC (Bld) 50 % 36 - 65 % [place] Segs Absolute 3.69 [place] WBC (Bld) [#/Vol] 7.4 10*3/uL [place] WBC (Bld) [#/Vol] 0.0 10*3/uL 0.0 per 10 0 WBC [place] WBC Morphology NOT REPORTED [place] CBC with Diffon 06-07-2019 Abs. Basophil 0.08 k/uL Normal 0.00-0.20 [facility] Comment on above: Performed By: #### S TOREYKE #### [address] [address] [employer] Driller: Stas Irving MD Abs.Imm.Granulocyte <0.03 Normal 0.00-0.30 [facility] Comment on above: Performed By: #### S TROKE #### [address] [address] Jew[employer] Driller: Stas Irving MD Abs.Neutrophil (Seg) 3.69 k/uL Normal 1.50-8.10 [facility] Comment on above: Performed By: #### S TROKE #### [address] [address] Jewel [employer] Driller: Stas Irving MD Basophils/100 WBC (Bld) 1 % Normal 0-2 [facility] Comment on above: Performed By: #### S TROKE #### [address] [address] Jew[employer] Driller: Stas Irving MD Eosinophils (Bld) [#/Vol] 0.59 10*3/uL High 0.00-0.44 [facility] Comment on above: Performed By: #### S TROKE #### [address] [address] Jewel [employer] Driller: Stas Irving MD Eosinophils/100 WBC (Bld) 8 % High 1-4 [facility] Comment on above: Performed By: #### S TOREYKE #### [address] [address] [employer] Driller: Stas Irving MD Erythrocyte distribution width (RBC) [Ratio] 13.6 % Normal 11.8-14.4 [facility] Comment on above: Performed By: #### S TOREYKE #### [address] [address] [employer] Driller: Stas Irving MD Hematocrit (Bld) [Volume fraction] 51.5 % High 40.7-50.3 [facility] Comment on above: Performed By: #### S TOREYKE #### [address] [address] [employer] Driller: Stas Irving MD Hemoglobin (Bld) [Mass/Vol] 16.7 g/dL Normal 13.0-17.0 [facility] Comment on above: Performed By: #### S TOREYKE #### [address] [address] Jew[employer] Driller: Stas Irving MD Immature granulocytes (Bld) [#/Vol] 0 % Normal 0 [facility] Comment on above: Performed By: #### S TOREYKE #### [address] [address] [employer] Driller: Stas Irving MD Lymphocytes (Bld) [#/Vol] 2.32 10*3/uL Normal 1.10-3.70 [facility] Comment on above: Performed By: #### S TROKE #### [address] [address] Jew[employer] Driller: Stas Irving MD Lymphocytes/100 WBC (Bld) 32 % Normal 24-43 [facility] Comment on above: Performed By: #### S MAGDY #### [address] [address] [employer] Driller: Stas Irving MD MCH (RBC) [Entitic mass] 28.2 pg Normal 25.2-33.5 [facility] Comment on above: Performed By: #### S MAGDY #### [address] [address] Jewel [employer] Driller: Stas Irving MD MCHC (RBC) [Mass/Vol] 32.4 g/dL Normal 28.4-34.8 [facility] Comment on above: Performed By: #### S MAGDY #### [address] [address] Jewel [employer] Driller: Stas Irving MD MCV (RBC) [Entitic vol] 86.8 fL Normal 82.6-102.9 [facility] Comment on above: Performed By: #### S MAGDY #### [address] [address] Jewel [employer] Driller: Stas Irving MD Monocytes (Bld) [#/Vol] 0.66 10*3/uL Normal 0.10-1.20 [facility] Comment on above: Performed By: #### S MAGDY #### [address] [address] Jewel [employer] Driller: Stas Irving MD Monocytes/100 WBC (Bld) 9 % Normal 3-12 [facility] Comment on above: Performed By: #### S MAGDY #### [address] [address] [employer] Driller: Stas Irving MD Neutrophil (Seg) 50 % Normal 36-65 [facility] Comment on above: Performed By: #### S MAGDY #### [address] [address] Jewel [employer] Driller: Stas Irving MD NRBC Automated 0.0 per 100 WBC Normal 0.0 [facility] Comment on above: Performed By: #### S MAGDY #### [address] [address] Jewel [employer] Driller: Stas Irving MD Platelet mean volume (Bld) [Entitic vol] 10.9 fL Normal 8.1-13.5 [facility] Comment on above: Performed By: #### S TOREYKE #### [address] [address] Jewel [employer] Driller: Stas Irving MD Platelets (Bld) [#/Vol] 196 10*3/uL Normal 138-453 [facility] Comment on above: Performed By: #### S MAGDY #### [address] [address] Jewel [employer] Driller: Stas Irving MD RBC (Bld) [#/Vol] 5.93 10*6/uL High 4.21-5.77 [facility] Comment on above: Performed By: #### S MAGDY #### [address] [address] Jewel [employer] Driller: Stas Irving MD WBC (Bld) [#/Vol] 7.4 10*3/uL Normal 3.5-11.3 [facility] Comment on above: Performed By: #### S TOREYKE #### [address] [address] Jewel [employer] Driller: Stas Irving MD Auto Diff Performed NOT REPORTED Normal [facility] Comment on above: Performed By: #### S TOREYKE #### [address] [address] Jewel [employer] Driller: Stas Irving MD Platelets (Bld) [#/Vol] NOT REPORTED Normal [facility] Comment on above: Performed By: #### S TROKE #### [facility] [address] [place], [place] [phone] Jewel [employer] Driller: Stas Irving MD RBC morphology finding Nom (Bld) NOT REPORTED Normal [facility] Comment on above: Performed By: #### S TROKE #### [facility] [address] [place], [place] [phone] Jewel [employer] Driller: Stas Irving MD WBC Morphology NOT REPORTED Normal [facility] Comment on above: Performed By: #### S TROKE #### [facility] [address] [place], [place] [phone] Jewel [employer] Driller: Stas Irving MD CT HEAD WO CONTRASTon [...] Randolph Bustos MD 06/06/19 Final result Normal [facility] MAGNESIUMon 06-07-2019 Magnesium [Mass/Vol] 1.9 mg/dL 1.6 - 2 .6 mg/dL [place] BRAIN WO CONTRASTon 05-22 MRI [...] Cas Berger MD 06/07/19 Final result Normal [facility] MRI Brain WO Contraston 05-22 1. Small [...] 06/07/2019to be communicated to a licensed caregiver. [facility] MRI OF THE BRAIN WITHOUT CONTRAST [...] the left. BONES/SOFT TISSUES: No significant abnormalities. [facility] Nav, Mhpn Incoming Radiant Results From efw-suhl/Targeter App - 06/07/2019 11:19 AM EDT EXAMINATION: MRI [...] 06/07/2019to be communicated to a licensed caregiver. [facility] Magnesiumon 06-07-2019 Magnesium [Mass/Vol] 1.9 mg/dL Normal 1.6-2.6 [facility] Comment on above: Performed By: #### S MAGDY #### [facility] [address] [place] [address] Jewel [employer] Driller: Stas Irving MD Otheron 06-07-2019 Interpretation and review of laboratory results Abnormal [facility] PHOSPHORUSon 06-07-2019 Phosphate [Mass/Vol] 5.4 mg/dL High 2.5 - 4 .5 mg/dL [place] POC Glucose Fingerstickon Glucose [Mass/Vol] 309 mg/dL High 75 - 110 mg/dL [place] Interpretation and review of laboratory results Abnormal [place] Glucose [Mass/Vol] 330 mg/dL High 75 - 110 mg/dL [place] Interpretation and review of laboratory results Abnormal [place] Glucose [Mass/Vol] 251 mg/dL High 75 - 110 mg/dL [place] Interpretation and review of laboratory results Abnormal [place] Glucose [Mass/Vol] 273 mg/dL High 75 - 110 mg/dL [place] Interpretation and review of laboratory results Abnormal [place] Phosphorus, Inorg.on 06-07- 019 Phosphorus, Inorg. 5.4 mg/dL High 2.5-4.5 [facility] Comment on above: Performed By: #### S MAGDY #### [facility] [address] [place] [address] Jewel [employer] Driller: Stas Irving MD BASIC METABOLIC PANELon 05-22 Anion gap [Moles/Vol] 16 mmol/L 9 - 17 mmol/L [place] Bun/Cre Ratio NOT REPORTED [place] Calcium [Mass/Vol] 9.2 mg/dL 8.6 - 10. 4 mg/dL [place] Chloride [Moles/Vol] 101 mmol/L 98 - 10 7 mmol/L [place] CO2 [Moles/Vol] 20 mmol/L 20 - 31 mmol/L [place] Creatinine [Mass/Vol] 0.48 mg/dL Low 0.7 - 1.2 mg/dL [place] GFR >60 >60 mL/min [place] GFR Non- >60 >60 mL/min [place] GFR/1.73 sq M predicted among non-blacks MDRD (S/P/Bld) [Vol rate/Area] NOT REPORTED [place] GFR/1.73 sq M predicted among non-blacks MDRD (S/P/Bld) [Vol rate/Area] [place] Comment on above: Average GFR for 60-6 9 years old: 85 mL/min/1.73sq m Chronic Kidney Disease: <60 mL/min/1.73sq m Kidney failure: <15 mL/min/1.73sq m eGFR calculated using average adult body mass. Additional eGFR calculator available at: http://www.KidAdmit/multiple_crcl_2012.htm Glucose [Mass/Vol] 264 mg/dL High 70 - 99 mg/dL [place] Potassium [Moles/Vol] 3.9 mmol/L 3.7 - 5.3 mmol/L [place] Sodium [Moles/Vol] 137 mmol/L 135 - 144 mmol/L [place] Urea nitrogen [Mass/Vol] 5 mg/dL Low 8 - 23 mg/dL [place] Basic Metabolic Profon 06-06 (cont.) Normal [facility] Comment on above: Result Comment: Aver age GFR for 60-69 years old: 85 mL/min/1.73sq m Chronic Kidney Disease: <60 mL/min/1.73sq m Kidney failure: <15 mL/min/1.73sq m eGFR calculated using average adult body mass. Additional eGFR calculator available at: http://www.KidAdmit/SealedMedia_crcl_2011.htm Performed By: #### C DP, BMP, LIPR, MG, CINTHYA, GLYHGB #### [facility] [address] [place] [address] Jewel [employer] Driller: Stas Irving MD Anion gap [Moles/Vol] 16 mmol/L Normal 9- [facility] Comment on above: Performed By: #### C DP, BMP, LIPR, MG, CINTHYA, GLYHGB #### [facility] [address] [place] [address] Jewel [employer] Driller: Stas Irving MD Calcium [Mass/Vol] 9.2 mg/dL Normal 8.6-10.4 [facility] Comment on above: Performed By: #### C DP, BMP, LIPR, MG, CINTHYA, GLYHGB #### [facility] [address] [place] [address] Jewel [employer] Driller: Stas Irving MD Chloride [Moles/Vol] 101 mmol/L Normal 98-107 [facility] Comment on above: Performed By: #### C DP, BMP, LIPR, MG, CINTHYA, GLYHGB #### [facility] [address] [place] [address] Jewel [employer] Driller: Stas Irving MD CO2 [Moles/Vol] 20 mmol/L Normal 20-31 [facility] Comment on above: Performed By: #### C DP, BMP, LIPR, MG, CINTHYA, GLYHGB #### [facility] [address] [place] [address] Jew[employer] Driller: Stas Irving MD Creatinine [Mass/Vol] 0.48 mg/dL Low 0.70-1.20 [facility] Comment on above: Performed By: #### C DP, BMP, LIPR, MG, CINTHYA, GLYHGB #### [facility] [address] [place] [address] Jewel [employer] Driller: Stas Irving MD GFR, Amer >60 Normal >60 [facility] Comment on above: Performed By: #### C DP, BMP, LIPR, MG, CINTHYA, GLYHGB #### [facility] [address] [place] [address] Jewel [employer] Driller: Stas Irving MD GFR,non Amer >60 Normal >60 [facility] Comment on above: Performed By: #### C DP, BMP, LIPR, MG, CINTHYA, GLYHGB #### [facility] [address] [place] [address] Jew[employer] Driller: Stas Irving MD Glucose [Mass/Vol] 264 mg/dL High 70-99 [facility] Comment on above: Performed By: #### C DP, BMP, LIPR, MG, CINTHYA, GLYHGB #### [address] [address] Jewel [employer] Driller: Stas Irving MD Potassium [Moles/Vol] 3.9 mmol/L Normal 3.7-5.3 [facility] Comment on above: Performed By: #### C DP, BMP, LIPR, MG, CINTHYA, GLYHGB #### [address] [address] [employer] Driller: Stas Irving MD Sodium [Moles/Vol] 137 mmol/L Normal 135-144 [facility] Comment on above: Performed By: #### C DP, BMP, LIPR, MG, CINTHYA, GLYHGB #### [address] [address] Jew[employer] Driller: Stas Irving MD Urea nitrogen [Mass/Vol] 5 mg/dL Low 8-23 [facility] Comment on above: Performed By: #### C DP, BMP, LIPR, MG, CINTHYA, GLYHGB #### [address] [address] [employer] Driller: Stas Irvnig MD BUN/CRE Ratio NOT REPORTED Normal - [facility] Comment on above: Performed By: #### C DP, BMP, LIPR, MG, CINTHYA, GLYHGB #### [address] [address] Jewel [employer] Driller: Stas Irving MD Staging: NOT REPORTED Normal [facility] Comment on above: Performed By: #### C DP, BMP, LIPR, MG, CINTHYA, GLYHGB #### [address] [address] Jewel [employer] Driller: Stas Irving MD CBC WITH AUTO DIFFERENTIALon 06-06-2019 Basophils (Bld) [#/Vol] 0.08 10*3/uL [place] Basophils/100 WBC (Bld) 1 % 0 - 2 % [place] Differential Type NOT REPORTED [place] Eosinophils (Bld) [#/Vol] 0.62 10*3/uL [place] Eosinophils/100 WBC (Bld) 9 % High 1 - 4 % [place] Erythrocyte distribution width (RBC) [Ratio] 13.8 % 11.8 - 14.4 % [place] Hematocrit (Bld) [Volume fraction] 49.9 % 40.7 - 50.3 % [place] Hemoglobin (Bld) [Mass/Vol] 16.4 g/dL 13 - 17 g/dL [place] Immature granulocytes (Bld) [#/Vol] 10*3/uL [place] Immature granulocytes (Bld) [#/Vol] 0 % 0 [place] Interpretation and review of laboratory results Abnormal [place] Lymphocytes (Bld) [#/Vol] 2.13 10*3/uL [place] Lymphocytes/100 WBC (Bld) 29 % 24 - 43 % [place] MCH (RBC) [Entitic mass] 28.6 pg 25.2 - 33.5 pg [place] MCHC (RBC) [Mass/Vol] 32.9 g/dL 28.4 - 34.8 g/dL [place] MCV (RBC) [Entitic vol] 86.9 fL 82.6 - 102.9 fL [place] Monocytes (Bld) [#/Vol] 0.62 10*3/uL [place] Monocytes/100 WBC (Bld) 9 % 3 - 12 % [place] Platelet mean volume (Bld) [Entitic vol] 10.1 fL 8.1 - 13.5 fL [place] Platelets (Bld) [#/Vol] 221 10*3/uL [place] Platelets (Bld) [#/Vol] NOT REPORTED [place] RBC (Bld) [#/Vol] 5.74 10*6/uL 4.21 - 5.7 7 m/uL [place] RBC morphology finding Nom (Bld) NOT REPORTED [place] Segmented neutrophils/100 WBC (Bld) 52 % 36 - 65 % [place] Segs Absolute 3.86 [place] WBC (Bld) [#/Vol] 0.0 10*3/uL 0.0 per 10 0 WBC [place] WBC (Bld) [#/Vol] 7.3 10*3/uL [place] WBC Morphology NOT REPORTED [place] CBC with Diffon 06-06-2019 Abs. Basophil 0.08 k/uL Normal 0.00-0.20 [facility] Comment on above: Performed By: #### C DP, BMP, LIPR, MG, CINTHYA, GLYHGB #### [place] [address] [employer] Driller: Stas Irving MD Abs.Imm.Granulocyte <0.03 Normal 0.00-0.30 [facility] Comment on above: Performed By: #### C DP, BMP, LIPR, MG, CINTHYA, GLYHGB #### [facility] [employer] [address] [place] [address] Jewel [employer] Driller: Stas Irving MD Abs.Neutrophil (Seg) 3.86 k/uL Normal 1.50-8.10 [facility] Comment on above: Performed By: #### C DP, BMP, LIPR, MG, CINTHYA, GLYHGB #### [facility] [employer] [address] [place] [address] Jewel [employer] Driller: Stas Irving MD Basophils/100 WBC (Bld) 1 % Normal 0-2 [facility] Comment on above: Performed By: #### C DP, BMP, LIPR, MG, CINTHYA, GLYHGB #### [address] [address] [employer] Driller: Stas Irving MD Eosinophils (Bld) [#/Vol] 0.62 10*3/uL High 0.00-0.44 [facility] Comment on above: Performed By: #### C DP, BMP, LIPR, MG, CINTHYA, GLYHGB #### [place] [address] [employer] Driller: Stas Irving MD Eosinophils/100 WBC (Bld) 9 % High 1-4 [facility] Comment on above: Performed By: #### C DP, BMP, LIPR, MG, CINTHYA, GLYHGB #### [place] [address] [employer] Driller: Stas Irving MD Erythrocyte distribution width (RBC) [Ratio] 13.8 % Normal 11.8-14.4 [facility] Comment on above: Performed By: #### C DP, BMP, LIPR, MG, CINTHYA, GLYHGB #### [place] [address] [employer]iller: Stas Irving MD Hematocrit (Bld) [Volume fraction] 49.9 % Normal 40.7-50.3 [facility] Comment on above: Performed By: #### C DP, BMP, LIPR, MG, CINTHYA, GLYHGB #### [place] [address] [employer] Driller: Stas Irving MD Hemoglobin (Bld) [Mass/Vol] 16.4 g/dL Normal 13.0-17.0 [facility] Comment on above: Performed By: #### C DP, BMP, LIPR, MG, CINTHYA, GLYHGB #### [facility] [employer] [address] [place] [address] [employer] Driller: Stas Irving MD Immature granulocytes (Bld) [#/Vol] 0 % Normal 0 [facility] Comment on above: Performed By: #### C DP, BMP, LIPR, MG, CINTHYA, GLYHGB #### [address] [address] [employer] Driller: Stas Irving MD Lymphocytes (Bld) [#/Vol] 2.13 10*3/uL Normal 1.10-3.70 [facility] Comment on above: Performed By: #### C DP, BMP, LIPR, MG, CINTHYA, GLYHGB #### [address] [address] [employer] Driller: Stas Irving MD Lymphocytes/100 WBC (Bld) 29 % Normal 24-43 [facility] Comment on above: Performed By: #### C DP, BMP, LIPR, MG, CINTHYA, GLYHGB #### [place] [address] [employer] Driller: Stas Irving MD MCH (RBC) [Entitic mass] 28.6 pg Normal 25.2-33.5 [facility] Comment on above: Performed By: #### C DP, BMP, LIPR, MG, CINTHYA, GLYHGB #### [address] [address] [employer] Driller: Stas Irving MD MCHC (RBC) [Mass/Vol] 32.9 g/dL Normal 28.4-34.8 [facility] Comment on above: Performed By: #### C DP, BMP, LIPR, MG, CINTHYA, GLYHGB #### [place] [address] [employer] Driller: Stas Irving MD MCV (RBC) [Entitic vol] 86.9 fL Normal 82.6-102.9 [facility] Comment on above: Performed By: #### C DP, BMP, LIPR, MG, CINTHYA, GLYHGB #### [address] [address] [employer] Driller: Stas Irving MD Monocytes (Bld) [#/Vol] 0.62 10*3/uL Normal 0.10-1.20 [facility] Comment on above: Performed By: #### C DP, BMP, LIPR, MG, CINTHYA, GLYHGB #### [address] [address] Jewel Hole Driller: Stas Irving MD Monocytes/100 WBC (Bld) 9 % Normal 3-12 [facility] Comment on above: Performed By: #### C DP, BMP, LIPR, MG, CINTHYA, GLYHGB #### [address] [address] Jewel Hole Driller: Stas Irving MD Neutrophil (Seg) 52 % Normal 36-65 [facility] Comment on above: Performed By: #### C DP, BMP, LIPR, MG, CINTHYA, GLYHGB #### [address] [address] Jewel Hole Driller: Stas Irving MD NRBC Automated 0.0 per 100 WBC Normal 0.0 [facility] Comment on above: Performed By: #### C DP, BMP, LIPR, MG, CINTHYA, GLYHGB #### [address] [address] Jewel Hole Driller: Stas Irving MD Platelet mean volume (Bld) [Entitic vol] 10.1 fL Normal 8.1-13.5 [facility] Comment on above: Performed By: #### C DP, BMP, LIPR, MG, CINTHYA, GLYHGB #### [address] [address] Jewel Hole Driller: Stas Irving MD Platelets (Bld) [#/Vol] 221 10*3/uL Normal 138-453 [facility] Comment on above: Performed By: #### C DP, BMP, LIPR, MG, CINTHYA, GLYHGB #### [address] [address] Jewel Hole Driller: Stas Irving MD RBC (Bld) [#/Vol] 5.74 10*6/uL Normal 4.21-5.77 [facility] Comment on above: Performed By: #### C DP, BMP, LIPR, MG, CINTHYA, GLYHGB #### [facility] [address] [place] [address] Jewel Hole Driller: Stas Irving MD WBC (Bld) [#/Vol] 7.3 10*3/uL Normal 3.5-11.3 [facility] Comment on above: Performed By: #### C DP, BMP, LIPR, MG, CINTHYA, GLYHGB #### [address] [address] Jewel Hole Driller: Stas Irving MD Auto Diff Performed NOT REPORTED Normal [facility] Comment on above: Performed By: #### C DP, BMP, LIPR, MG, CINTHYA, GLYHGB #### [address] [address] Jewel Hole Driller: Stas Irving MD Platelets (Bld) [#/Vol] NOT REPORTED Normal [facility] Comment on above: Performed By: #### C DP, BMP, LIPR, MG, CINTHYA, GLYHGB #### [address] [address] Jewel Hole Driller: Stas Irving MD RBC morphology finding Nom (Bld) NOT REPORTED Normal [facility] Comment on above: Performed By: #### C DP, BMP, LIPR, MG, CINTHYA, GLYHGB #### [facility] [address] [place] [id number] Jewel Hole Driller: Stas Irving MD WBC Morphology NOT REPORTED Normal [facility] Comment on above: Performed By: #### C DP, BMP, LIPR, MG, CINTHYA, GLYHGB #### [place] [id number] [place] [phone] Jewel Hole Driller: Stas Irving MD CT HEAD WO CONTRASTon [...] C Goyal MD 06/05/19 Final result Normal [facility] CT head without contraston 1 Nav, pn Incoming Radiant Results From [facility] - 06/06/2019 10:31 PM EDT EXAMINATION: CT [...] effect. 3. Redemonstration of multifocal remote infarcts. [place] EXAMINATION: CT OF THE HEAD WITHOUT [...] interface is intact. No acute intracranial hemorrhage. [facility] [place] 1. No evidence of an acute evolving infarct. 2. No acute intracranial hemorrhage or global mass effect. 3. Redemonstration of multifocal remote infarcts. [facility] [place] CTA HEAD W CON AND CTA NECK [...] C Goyal MD 06/05/19 Final result Normal [facility] EKG 12 Leadon 06-06-2019 Atrial Rate 81 BPM [place] P [place] 67 degrees [place] P-R Interval 174 ms [place] Q-T Interval 378 ms [place] QRS Duration 90 ms [place] QTc Calculation (Bazett) 439 ms [place] R [place] -15 degrees [place] T [place] 24 degrees [place] Ventricular Rate 81 BPM [place] Normal sinus rhythm Nonspecific T wave abnormality Abnormal ECG No previous ECGs available [place] Nav, Mhpn Incoming Ekg Results From [facility] - 06/06/2019 9:23 AM EDT Normal sinus rhythm Nonspecific T wave abnormality Abnormal ECG No previous ECGs available [place] Hemoglobin A1Con 06-06-2019 HbA1c (Bld) [Mass fraction] 306 mg/dL Normal [facility] Comment on above: Result Comment: The ADA and AACC recommend providing the estimated average glucose result to permit better patient understanding of their HBA1c result. Performed By: #### C DP, BMP, LIPR, MG, CINTHYA, GLYHGB #### [facility] [place] [address] Jewel Hole Driller: Stas Irving MD HbA1c (Bld) [Mass fraction] 12.3 % High 4.0-6.0 [facility] Comment on above: Performed By: #### C DP, BMP, LIPR, MG, CINTHYA, GLYHGB #### [facility] [employer] [facility] [place], [place] [phone] Jewel Hole Driller: Stas Irving MD Glucose [Mass/Vol] 306 mg/dL [place] Comment on above: The ADA and AACC rec ommend providing the estimated average glucose result to permit better patient understanding of their HBA1c result. HbA1c (Bld) [Mass fraction] 12.3 % High 4 - 6 % [place] Interpretation and review of laboratory results Abnormal [place] LIPID PANELon 06-06-2019 Cholesterol [Mass/Vol] 294 mg/dL High <200 [place] Comment on above: Cholesterol Guidelines: <200 Desirable 200-240 Borderline >240 Undesirable Cholesterol in HDL [Mass/Vol] 38 mg/dL Low >40 [place] Comment on above: HDL Guidelines: <40 Undesirable 40-59 Borderline >59 Desirable Cholesterol in LDL [Mass/Vol] 216 mg/dL High 0 - 130 mg/dL [place] Comment on above: LDL Guidelines: <100 Desirable 100-129 Near to/above Desirable 130-159 Borderline >159 Undesirable Direct (measured) LDL and calculated LDL are not interchangeable tests. Cholesterol in VLDL [Mass/Vol] NOT REPORTED High 1 - 30 mg/dL [place] Cholesterol.total/Cho lesterol in HDL [Mass ratio] 7.7 {ratio} High <5 [place] Triglyceride [Mass/Vol] 200 mg/dL High <150 [place] Comment on above: Triglyceride Guidelines: <150 Desirable 150-199 Borderline 200-499 High >499 Very high Based on AHA Guidelines for fasting triglyceride, May 2012. Lipid Profileon 06-06-2019 Cholesterol [Mass/Vol] 294 mg/dL High <200 [facility] Comment on above: Result Comment: Cholesterol Guidelines: <200 Desirable 200-240 Borderline >240 Undesirable Performed By: #### C DP, BMP, LIPR, MG, CINTHYA, GLYHGB #### [facility] [address] [place] [phone] Jewel Hole Driller: Stas Irving MD Cholesterol in HDL [Mass/Vol] 38 mg/dL Low >40 [facility] Comment on above: Result Comment: HDL Guidelines: <40 Undesirable 40-59 Borderline >59 Desirable Performed By: #### C DP, BMP, LIPR, MG, CINTHYA, GLYHGB #### [facility] [employer] [address] [place] [phone] Jewel Hole Driller: Stas Irving MD Cholesterol in LDL [Mass/Vol] 216 mg/dL High 0-130 [facility] Comment on above: Result Comment: LDL Guidelines: <100 Desirable 100-129 Near to/above Desirable 130-159 Borderline >159 Undesirable Direct (measured) LDL and calculated LDL are not interchangeable tests. Performed By: #### C DP, BMP, LIPR, MG, CINTHYA, GLYHGB #### [facility] [employer] [facility] [place] [address] Jewel Hole Driller: Stas Irving MD Cholesterol.total/Cho lesterol in HDL [Mass ratio] 7.7 {ratio} High <5 [facility] Comment on above: Performed By: #### C DP, BMP, LIPR, MG, CINTHYA, GLYHGB #### [facility] [place] [address] Jewel Hole Driller: Stas Irving MD Triglyceride [Mass/Vol] 200 mg/dL High <150 [facility] Comment on above: Result Comment: Triglyceride Guidelines: <150 Desirable 150-199 Borderline 200-499 High >499 Very high Based on AHA Guidelines for fasting triglyceride, May 2012. Performed By: #### C DP, BMP, LIPR, MG, CINTHYA, GLYHGB #### [facility] [address] [place] [phone] Jewel Hole Driller: Stas Irving MD Cholesterol in VLDL [Mass/Vol] NOT REPORTED Normal 09-20 [facility] Comment on above: Performed By: #### C DP, BMP, LIPR, MG, CINTHYA, GLYHGB #### [facility] [employer] [address] [place] [phone] Jewel Hole Driller: Stas Irving MD MAGNESIUMon 06-06-2019 Magnesium [Mass/Vol] 2.0 mg/dL 1.6 - 2 .6 mg/dL [place] MRSA DNA Probe, Nasalon 05-22 MRSA, DNA, Nasal NEGATIVE: MRSA DNA not detected by nucleic acid amplification. NEGATIVE: MRSA DNA not detected by nucleic acid amplificati [place] Comment on above: Results should be used as an adjunct to nosocomial control efforts to identify patients needing enhanced precautions. The test is not intended to identify patients with staphylococcal infections. Results should not be used to guide or monitor treatment for MRSA infections. Specimen Description .NASAL SWAB [place] MRSA, DNA, Nasalon 9 MRSA, DNA, Nasal NEGATIVE: MRSA DNA not detected by nucleic acid amplification. Normal NMRSAA [facility] Comment on above: Result Comment: Results should be used as an adjunct to nosocomial control efforts to identify patients needing enhanced precautions. The test is not intended to identify patients with staphylococcal infections. Results should not be used to guide or monitor treatment for MRSA infections. Performed By: #### S MAGDY #### [facility] [address] [place] [address] [phone] Jewel Hole Driller: Stas Irving MD Specimen Description .NASAL SWAB Normal [facility] Comment on above: Performed By: #### S MAGDY #### [facility] [address] [place] [address] [phone] Jewel Hole Driller: Stas Irving MD Magnesiumon 06-06-2019 Magnesium [Mass/Vol] 2.0 mg/dL Normal 1.6-2.6 [facility] Comment on above: Performed By: #### C DP, BMP, LIPR, MG, CINTHYA, GLYHGB #### [facility] [address] [place] [address] [phone] Jewel Hole Driller: Stas Irving MD Otheron 06-06-2019 Interpretation and review of laboratory results Abnormal [place] PHOSPHORUSon 06-06-2019 Phosphate [Mass/Vol] 3.2 mg/dL 2.5 - 4 .5 mg/dL [place] POC Glucose Fingerstickon Glucose [Mass/Vol] 315 mg/dL High 75 - 110 mg/dL [place] Interpretation and review of laboratory results Abnormal [place] Glucose [Mass/Vol] 310 mg/dL High 75 - 110 mg/dL [place] Interpretation and review of laboratory results Abnormal [place] Glucose [Mass/Vol] 257 mg/dL High 75 - 110 mg/dL [place] Interpretation and review of laboratory results Abnormal [place] Glucose [Mass/Vol] 265 mg/dL High 75 - 110 mg/dL [place] Interpretation and review of laboratory results Abnormal [place] Glucose [Mass/Vol] 211 mg/dL High 75 - 110 mg/dL [place] Interpretation and review of laboratory results Abnormal [place] POCT glucoseon 06-06-2019 Glucose [Mass/Vol] 211 mg/dL [place] Interpretation and review of laboratory results Normal [place] Phosphorus, Inorg.on 019 Phosphorus, Inorg. 3.2 mg/dL Normal 2.5-4.5 [facility] Comment on above: Performed By: #### C DP, BMP, LIPR, MG, CINTHYA, GLYHGB #### [facility] [address] [place] [address] Jewel Hole Driller: Stas Irving MD Anion Gap (Calc) POCon 06-05 Anion gap [Moles/Vol] 10 mmol/L 7 - 16 mmol/L [place] CALCIUM, IONIC (POC)on 06-05 POC Ionized Calcium 1.18 mmol/L 1.15 - 1 .33 mmol/L [place] CHLORIDE (POC)on 06-05-2019 Chloride [Moles/Vol] 99 mmol/L 98 - 10 7 mmol/L [place] CT Head WO Contraston 2018 EXAMINATION: [...] of the visualized skull or soft tissues. [place] Nav, pn Incoming Radiant Results From [facility] - 06/05/2019 10:17 PM EDT EXAMINATION: CT [...] Discussed with Dr. Son at 10:14 p.m.. [place] No acute intracrania l abnormality. 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 Pansinusitis. RECOMMENDATIONS: The findings were sent to the Radiology Results Communication Center at 10:13 pm on 06/05/2019to be communicated to a licensed caregiver. Discussed with Dr. Son at 10:14 p.m.. [place] CTA HEAD NECK W CONTRASTon 1 Nav, pn Incoming Radiant Results From [facility] - 06/05/2019 10:57 PM EDT EXAMINATION: CTA [...] discussed with Dr. Son at 10:50 p.m.. 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 Otherwise negative CTA of the head and neck. RECOMMENDATIONS: The findings were sent to the Radiology Results Communication Center at 10:48 pm on 06/05/2019to be communicated to a licensed caregiver. Case discussed with Dr. Son at 10:50 p.m.. [place] EXAMINATION: CTA OF THE HEAD AND [...] bilateral remote basal ganglia infarcts again noted. [place] Creatinine W/GFR Point of Ca reon 06-05-2019 Creatinine [Mass/Vol] 0.77 mg/dL 0.51 - 1.19 mg/dL [place] GFR Non- >60 >60 mL/min [place] GFR/1.73 sq M predicted among non-blacks MDRD (S/P/Bld) [Vol rate/Area] mL/min/{1.73_m2} >60 mL/min [place] GFR/1.73 sq M predicted among non-blacks MDRD (S/P/Bld) [Vol rate/Area] [place] Comment on above: Average GFR for 60-6 9 years old: 85 mL/min/1.73sq m Chronic Kidney Disease: <60 mL/min/1.73sq m Kidney failure: <15 mL/min/1.73sq m eGFR calculated using average adult body mass. Additional eGFR calculator available at: http://www.KidAdmit/multiple_crcl_2012.htm Hemoglobin and hematocrit, b jahodon 06-05-2019 Hematocrit (Bld) [Volume fraction] 47 % 41 - 53 % [place] Hemoglobin (Bld) [Mass/Vol] 16.0 g/dL 13.5 - 17.5 g/dL [place] Lactic Acid, POCon 9 POC Lactic Acid 1.62 mmol/L High 0.56 - 1.39 mmol/L [place] Otheron 06-05-2019 Interpretation and review of laboratory results Abnormal [place] POC Glucose Fingerstickon Glucose [Mass/Vol] 315 mg/dL High 75 - 110 mg/dL [place] Interpretation and review of laboratory results Abnormal [place] POCT Glucoseon 06-05-2019 Glucose [Mass/Vol] 344 mg/dL High 74 - 100 mg/dL [place] POTASSIUM (POC)on 06-05-2019 Potassium [Moles/Vol] 3.9 mmol/L 3.5 - 4.5 mmol/L [place] SODIUM (POC)on 06-05-2019 Sodium [Moles/Vol] 136 mmol/L Low 138 - 146 mmol/L [place] STROKE PANELon 06-05-2019 % CKMB 2.4 % 0 - 3.5 % [place] Anion gap [Moles/Vol] 12 mmol/L 9 - 17 mmol/L [place] aPTT Coag (Bld) [Time] 26.4 s [place] Basophils (Bld) [#/Vol] 0.06 10*3/uL [place] Basophils/100 WBC (Bld) 1 % 0 - 2 % [place] Bun/Cre Ratio NOT REPORTED [place] Calcium [Mass/Vol] 9.7 mg/dL 8.6 - 10. 4 mg/dL [place] Chloride [Moles/Vol] 98 mmol/L 98 - 10 7 mmol/L [place] CK.MB [Mass/Vol] NORMAL ISOENZYME PATTERN [place] CK.MB [Mass/Vol] 3.3 ng/mL <10.5 [place] CO2 [Moles/Vol] 25 mmol/L 20 - 31 mmol/L [place] Creatinine [Mass/Vol] 0.83 mg/dL 0.7 - 1.2 mg/dL [place] Differential Type NOT REPORTED [place] Eosinophils (Bld) [#/Vol] 0.46 10*3/uL [place] Eosinophils/100 WBC (Bld) 6 % High 1 - 4 % [place] Erythrocyte distribution width (RBC) [Ratio] 13.7 % 11.8 - 14.4 % [place] GFR >60 >60 mL/min [place] GFR Non- >60 >60 mL/min [place] GFR/1.73 sq M predicted among non-blacks MDRD (S/P/Bld) [Vol rate/Area] NOT REPORTED [place] GFR/1.73 sq M predicted among non-blacks MDRD (S/P/Bld) [Vol rate/Area] [place] Comment on above: Average GFR for 60-6 9 years old: 85 mL/min/1.73sq m Chronic Kidney Disease: <60 mL/min/1.73sq m Kidney failure: <15 mL/min/1.73sq m eGFR calculated using average adult body mass. Additional eGFR calculator available at: http://www.GoSquared.Volumental/multiple_crcl_2012.htm Glucose [Mass/Vol] 353 mg/dL High 70 - 99 mg/dL [place] Hematocrit (Bld) [Volume fraction] 47.2 % 40.7 - 50.3 % [place] Hemoglobin (Bld) [Mass/Vol] 15.6 g/dL 13 - 17 g/dL [place] Immature granulocytes (Bld) [#/Vol] 0.03 10*3/uL [place] Immature granulocytes (Bld) [#/Vol] 0 % 0 [place] INR Coag (PPP) [Relative time] 1.2 {INR} [place] Comment on above: Therapeutic Range: Moderate Anticoagulant Intensity: INR = 2.0-3.0 High Anticoagulant Intensity: INR = 2.5-3.5 Interpretation and review of laboratory results Abnormal [place] Lymphocytes (Bld) [#/Vol] 2.54 10*3/uL [place] Lymphocytes/100 WBC (Bld) 32 % 24 - 43 % [place] MCH (RBC) [Entitic mass] 28.5 pg 25.2 - 33.5 pg [place] MCHC (RBC) [Mass/Vol] 33.1 g/dL 28.4 - 34.8 g/dL [place] MCV (RBC) [Entitic vol] 86.1 fL 82.6 - 102.9 fL [place] Monocytes (Bld) [#/Vol] 0.69 10*3/uL [place] Monocytes/100 WBC (Bld) 9 % 3 - 12 % [place] Myoglobin [Mass/Vol] 24 ng/mL Low 28 - 72 ng/mL [place], [place] Platelet mean volume (Bld) [Entitic vol] 11.3 fL 8.1 - 13.5 fL [place] Platelets (Bld) [#/Vol] 201 10*3/uL [place] Platelets (Bld) [#/Vol] NOT REPORTED [place] Potassium [Moles/Vol] 4.1 mmol/L 3.7 - 5.3 mmol/L [place] PT Coag (PPP) [Time] 12.1 s [place] RBC (Bld) [#/Vol] 5.48 10*6/uL 4.21 - 5.7 7 m/uL [place] RBC morphology finding Nom (Bld) NOT REPORTED [place] Segmented neutrophils/100 WBC (Bld) 52 % 36 - 65 % [place] Segs Absolute 4.20 [place] Sodium [Moles/Vol] 135 mmol/L 135 - 144 mmol/L [place] Total CK 138 U/L 39 - 308 U/L [place] Troponin I.cardiac [Mass/Vol] NOT REPORTED [place] Troponin T.cardiac [Mass/Vol] NOT REPORTED <0.03 ng/mL [place] Troponin, High Sensitivity 17 ng/L 0 - 22 ng/L [place] Comment on above: High Sensitivity Troponin values cannot be compared with other Troponin methodologies. Patients with high levels of Biotin oral intake (i.e >5mg/day) may have falsely decreased Troponin levels. Samples collected within 8 hours of biotin intake may require additional information for diagnosis. Urea nitrogen [Mass/Vol] 8 mg/dL 8 - 23 mg/dL [place] WBC (Bld) [#/Vol] 0.0 10*3/uL 0.0 per 10 0 WBC [place] WBC (Bld) [#/Vol] 8.0 10*3/uL [place] WBC Morphology NOT REPORTED [place] Stroke Panelon 06-05-2019 % CKMB 2.4 % Normal 0.0-3.5 [facility] Comment on above: Performed By: #### S TROKE #### [facility] [address] [place] [address] Jewel Hole Driller: Stas Irving MD Anion gap [Moles/Vol] 12 mmol/L Normal 9-17 [facility] Comment on above: Performed By: #### S TROKE #### [address] [address] Jewel Hole Driller: Stas Irving MD Calcium [Mass/Vol] 9.7 mg/dL Normal 8.6-10.4 [facility] Comment on above: Performed By: #### S TROKE #### [address] [address] Jewel Hole Driller: Stas Irving MD Chloride [Moles/Vol] 98 mmol/L Normal 98-107 [facility] Comment on above: Performed By: #### S TROKE #### [address] [address] Jewel Hole Driller: Stas Irving MD CK [Catalytic activity/Vol] 138 U/L Normal 39-308 [facility] Comment on above: Performed By: #### S TROKE #### [address] [address] Jewel Hole Driller: Stas Irving MD CK.MB [Mass/Vol] NORMAL ISOENZYME PATTERN Normal [facility] Comment on above: Performed By: #### S TROKE #### [address] [address] Jewel Hole Driller: Stas Irving MD CO2 [Moles/Vol] 25 mmol/L Normal 20-31 [facility] Comment on above: Performed By: #### S TROKE #### [address] [address] Jewel Hole Driller: Stas Irving MD Creatinine [Mass/Vol] 0.83 mg/dL Normal 0.70-1.20 [facility] Comment on above: Performed By: #### S TROKE #### [address] [address] Jewel Hole Driller: Stas Irving MD GFR, Amer >60 Normal >60 [facility] Comment on above: Performed By: #### S TOREYKE #### [address] [address] Jewel Hole Driller: Stas Irving MD GFR,non Amer >60 Normal >60 [facility] Comment on above: Performed By: #### S TROKE #### [address] [address] Jewel Hole Driller: Stas Irving MD Glucose [Mass/Vol] 353 mg/dL High 70-99 [facility] Comment on above: Performed By: #### S TOREYKE #### [address] [address] Jewel Hole Driller: Stas Irving MD Potassium [Moles/Vol] 4.1 mmol/L Normal 3.7-5.3 [facility] Comment on above: Performed By: #### S TOREYKE #### [address] [address] Jewel Hole Driller: Stas Irving MD Sodium [Moles/Vol] 135 mmol/L Normal 135-144 [facility] Comment on above: Performed By: #### S TOREYKE #### [address] [address] Jewel Hole Driller: Stas Irving MD Urea nitrogen [Mass/Vol] 8 mg/dL Normal 8-23 [facility] Comment on above: Performed By: #### S TROKE #### [address] [address] Jewel Hole Driller: Stas Irving MD (cont.) [facility] Comment on above: Result Comment: Aver age GFR for 60-69 years old: 85 mL/min/1.73sq m Chronic Kidney Disease: <60 mL/min/1.73sq m Kidney failure: <15 mL/min/1.73sq m eGFR calculated using average adult body mass. Additional eGFR calculator available at: http://www.GoSquared.Volumental/multiple_crcl_2012.htm Performed By: #### S MAGDY #### [address] [address] Jewel Hole Driller: Stas Irving MD CK-MB,Quantitative 3.3 ng/mL Normal <10.5 [facility] Comment on above: Performed By: #### S TOREYKE #### [facility] [employer] [employer] [address] [place] [phone] Jewel Hole Driller: Stas Irving MD Myoglobin [Mass/Vol] 24 ng/mL Low 28-72 [facility] Comment on above: Performed By: #### S MAGDY #### [address] [address] Jewel Hole Driller: Stas Irving MD Troponin, High Sens 17 ng/L Normal 0-22 [facility] Comment on above: Result Comment: High Sensitivity Troponin values cannot be compared with other Troponin methodologies. Patients with high levels of Biotin oral intake (i.e >5mg/day) may have falsely decreased Troponin levels. Samples collected within 8 hours of biotin intake may require additional information for diagnosis. Performed By: #### S MAGDY #### [address] [address] Jewel Hole Driller: Stas Irving MD aPTT Coag (Bld) [Time] 26.4 s Normal 20.5-30.5 [facility] Comment on above: Performed By: #### S MAGDY #### [facility] [employer] [address] [place] [phone] Jewel Hole Driller: Stas Irving MD INR Coag (PPP) [Relative time] 1.2 {INR} Normal [facility] Comment on above: Result Comment: Therapeutic Range: Moderate Anticoagulant Intensity: INR = 2.0-3.0 High Anticoagulant Intensity: INR = 2.5-3.5 Performed By: #### S TROKE #### [place] [address] Jewel Hole Driller: Stas Irving MD PT Coag (PPP) [Time] 12.1 s High 9.0-12.0 [facility] Comment on above: Performed By: #### S TROKE #### [place] [address] Jewel Hole Driller: Stas Irving MD Abs. Basophil 0.06 k/uL Normal 0.00-0.20 [facility] Comment on above: Performed By: #### S TOREYKE #### [place] [address] Jewel Hole Driller: Stas Irving MD Abs.Imm.Granulocyte 0.03 k/uL Normal 0.00-0.30 [facility] Comment on above: Performed By: #### S TOREYKE #### [place] [address] Jewel Hole Driller: Stas Irving MD Abs.Neutrophil (Seg) 4.20 k/uL Normal 1.50-8.10 [facility] Comment on above: Performed By: #### S TOREYKE #### [place] [address] Jewel Hole Driller: Stas Irving MD Basophils/100 WBC (Bld) 1 % Normal 0-2 [facility] Comment on above: Performed By: #### S TROKE #### [place] [address] Jewel Hole Driller: Stas Irving MD Eosinophils (Bld) [#/Vol] 0.46 10*3/uL High 0.00-0.44 [facility] Comment on above: Performed By: #### S TROKE #### [place] [address] Jewel Hole Driller: Stas Irving MD Eosinophils/100 WBC (Bld) 6 % High 1-4 [facility] Comment on above: Performed By: #### S TOREYKE #### [address] [address] Jewel Hole Driller: Stas Irving MD Erythrocyte distribution width (RBC) [Ratio] 13.7 % Normal 11.8-14.4 [facility] Comment on above: Performed By: #### S TOREYKE #### [facility] [employer] [address] [place] [id number] Jewel Hole Driller: Stas Irving MD Hematocrit (Bld) [Volume fraction] 47.2 % Normal 40.7-50.3 [facility] Comment on above: Performed By: #### S MAGDY #### [address] [address] Jewel Hole Driller: Stas Irving MD Hemoglobin (Bld) [Mass/Vol] 15.6 g/dL Normal 13.0-17.0 [facility] Comment on above: Performed By: #### S TOREYKE #### [address] [address] Jewel Hole Driller: Stas Irving MD Immature granulocytes (Bld) [#/Vol] 0 % Normal 0 [facility] Comment on above: Performed By: #### S TROKE #### [address] [address] Jewel Hole Driller: Stas Irving MD Lymphocytes (Bld) [#/Vol] 2.54 10*3/uL Normal 1.10-3.70 [facility] Comment on above: Performed By: #### S TOREYKE #### [facility] [employer] [address] [place] [id number] Jewel Hole Driller: Stas Irving MD Lymphocytes/100 WBC (Bld) 32 % Normal 24-43 [facility] Comment on above: Performed By: #### S MAGDY #### [address] [address] Jewel Hole Driller: Stas Irving MD MCH (RBC) [Entitic mass] 28.5 pg Normal 25.2-33.5 [facility] Comment on above: Performed By: #### S MAGDY #### [place] [address] Jewel Hole Driller: Stas Irving MD MCHC (RBC) [Mass/Vol] 33.1 g/dL Normal 28.4-34.8 [facility] Comment on above: Performed By: #### S MAGDY #### [place] [address] Jewel Hole Driller: Stas Irving MD MCV (RBC) [Entitic vol] 86.1 fL Normal 82.6-102.9 [facility] Comment on above: Performed By: #### S MAGDY #### [place] [address] Jewel Hole Driller: Stas Irving MD Monocytes (Bld) [#/Vol] 0.69 10*3/uL Normal 0.10-1.20 [facility] Comment on above: Performed By: #### S MAGDY #### [place] [address] Jewel Hole Driller: Stas Irving MD Monocytes/100 WBC (Bld) 9 % Normal 3-12 [facility] Comment on above: Performed By: #### S MAGDY #### [address] [address] Jewel Hole Driller: Stas Irving MD Neutrophil (Seg) 52 % Normal 36-65 [facility] Comment on above: Performed By: #### S MAGDY #### [address] [place] [address] Jewel Hole Driller: Stas Irving MD NRBC Automated 0.0 per 100 WBC Normal 0.0 [facility] Comment on above: Performed By: #### S TROKE #### [address] [address] Jewel Hole Driller: Stas Irving MD Platelet mean volume (Bld) [Entitic vol] 11.3 fL Normal 8.1-13.5 [facility] Comment on above: Performed By: #### S TROKE #### [address] [address] Jewel Hole Driller: Stas Irving MD Platelets (Bld) [#/Vol] 201 10*3/uL Normal 138-453 [facility] Comment on above: Performed By: #### S TOREYKE #### [address] [address] Jewel Hole Driller: Stas Irving MD RBC (Bld) [#/Vol] 5.48 10*6/uL Normal 4.21-5.77 [facility] Comment on above: Performed By: #### S TOREYKE #### [address] [address] Jewel Hole Driller: Stas Irving MD WBC (Bld) [#/Vol] 8.0 10*3/uL Normal 3.5-11.3 [facility] Comment on above: Performed By: #### S TROKE #### [address] [address] Jewel Hole Driller: Stas Irving MD Auto Diff Performed NOT REPORTED Normal [facility] Comment on above: Performed By: #### S TROKE #### [address] [address] Jewel Hole Driller: Sats Irving MD BUN/CRE Ratio NOT REPORTED Normal 9-20 [facility] Comment on above: Performed By: #### S MAGDY #### [address] [address] Jewel Hole Driller: Stas Irving MD Platelets (Bld) [#/Vol] NOT REPORTED Normal [facility] Comment on above: Performed By: #### S TOREYKE #### [address] [address] Jewel Hole Driller: Stas Irving MD RBC morphology finding Nom (Bld) NOT REPORTED Normal [facility] Comment on above: Performed By: #### S MAGDY #### [address] [address] Jewel Hole Driller: Stas Irving MD Staging: NOT REPORTED Normal [facility] Comment on above: Performed By: #### S MAGDY #### [address] [address] Jewel Hole Driller: Stas Irving MD Troponin I.cardiac [Mass/Vol] NOT REPORTED Normal [facility] Comment on above: Performed By: #### S MAGDY #### [address] [address] Jewel Hole Driller: Stas Irving MD Troponin T.cardiac [Mass/Vol] NOT REPORTED Normal <0.03 [facility] Comment on above: Performed By: #### S MAGDY #### [address] [address] Jewel Hole Driller: Stas Irving MD WBC Morphology NOT REPORTED Normal [facility] Comment on above: Performed By: #### S MAGDY #### [address] [address] Jewel Hole Driller: Stas Irving MD Venous Blood Gas, POCon 10-1 [place] Test NOT REPORTED [facility], [place] aPTT Coag (Bld) [Time] NOT REPORTED [place] FIO2 NOT RE[place]ED [place] HCO3, Venous 27.3 mmol/L 22 - 29 mmol/L [place] Mode NOT REPORTED [place] Negative Base Excess, Kody NOT REPORTED [place] O2 Device/Flow/% NOT REPORTED [place] Oxygen saturation in Blood 67 % 60 - 85 % [place] pCO2, Kody 41.3 [place] pH, [place] 7.428 [place] pO2, Kody 33.8 [place] POC pCO2 Temp NOT REPORTED mm Hg [place] POC pH Temp NOT REPORTED [place] POC pO2 Temp NOT REPORTED mm Hg [place] Positive Base Excess, Kody 3 [place] Sample Site NOT REPORTED [place] Total CO2, Venous 29 mmol/L 23 - 30 mmol/L [place] XR CHEST PORTABLEon 06-05-20 XR CHEST [...] C Goyal MD 06/05/19 Final result Normal [facility] EXAMINATION: ONE XRA Y VIEW OF THE CHEST 06/05/2019 9:01 pm COMPARISON: None. HISTORY: ORDERING SYSTEM PROVIDED HISTORY: CVA TECHNOLOGIST PROVIDED HISTORY: CVA Reason for Exam: stroke upright port FINDINGS: The lungs are without acute focal process. There is no effusion or pneumothorax. The cardiomediastinal silhouette is without acute process. The osseous structures are without acute process. [place] Nav, Mhpn Incoming Radiant Results From [employer] - 06/05/2019 9:43 PM EDT EXAMINATION: ONE [...] without acute process. IMPRESSION: No acute process. [facility], [place] No acute process. [place] Vital Signs Date Time Vital Sign Value Performing Clinician Facility 07-02-2024 14:25-0500 Body height 182.9 cm Adilson Salazar MD Work Phone: [facility] 07-02-2024 14:25-0500 Body mass index (BMI) [Ratio] 33.23 kg/m2 Adilson Salazar MD Work Phone: [facility] 07-02-2024 14:25-0500 Body temperature 96.21 [degF] Adilson Salazar MD Work Phone: [facility] 07-02-2024 14:25-0500 Body weight 111.13 kg Adilson Salazar MD Work Phone: [facility] 07-02-2024 14:25-0500 Diastolic blood pressure 98 mm[Hg] Adilson Salazar MD Work Phone: [facility] 07-02-2024 14:25-0500 Heart rate 91 /min Adilson Salazar MD Work Phone: [facility] 07-02-2024 14:25-0500 Respiratory rate 20 /min Adilson Salazar MD Work Phone: [facility] 07-02-2024 14:25-0500 SaO2% (BldA) [Mass fraction] 95 % Adilson Salazar MD Work Phone: [facility] 07-02-2024 14:25-0500 Systolic blood pressure 200 mm[Hg] Adilson Salazar MD Work Phone: [facility] 05-18-2024 10:12-0400 Body height 182.9 cm Adilson Salazar MD Work Phone: [facility] 05-18-2024 10:12-0400 Body mass index (BMI) [Ratio] 31.46 kg/m2 Adilson Salazar MD Work Phone: [facility] 05-18-2024 10:12-0400 Body temperature 96.6 [degF] Adilson Salazar MD Work Phone: [facility] 05-18-2024 10:12-0400 Body weight 105.23 kg Adilson Salazar MD Work Phone: [facility] 05-18-2024 10:12-0400 Diastolic blood pressure 74 mm[Hg] Adilson Salazar MD Work Phone: [facility] 05-18-2024 10:12-0400 Heart rate 90 /min Adilson Salazar MD Work Phone: [facility] 05-18-2024 10:12-0400 Respiratory rate 18 /min Adilson Salazar MD Work Phone: [facility] 05-18-2024 10:12-0400 SaO2% (BldA) [Mass fraction] 95 % Adilson Salazar MD Work Phone: [facility] 05-18-2024 10:12-0400 Systolic blood pressure 136 mm[Hg] Adilson Salazar MD Work Phone: [facility] 05-02-2024 13:17-0400 Body height 182.9 cm Adilson Salazar MD Work Phone: [facility] 05-02-2024 13:17-0400 Body mass index (BMI) [Ratio] 33.63 kg/m2 Adilson Salazar MD Work Phone: [facility] 05-02-2024 13:17-0400 Body temperature 97.5 [degF] Adilson Salazar MD Work Phone: [facility] 05-02-2024 13:17-0400 Body weight 112.49 kg Adilson Salazar MD Work Phone: [facility] 09-11-2024 13:17-0400 Diastolic blood pressure 64 mm[Hg] Adilson Salazar MD Work Phone: [facility] 05-02-2024 13:17-0400 Heart rate 78 /min Adilson Salazar MD Work Phone: [facility] 05-02-2024 13:17-0400 Respiratory rate 20 /min Adilson Salazar MD Work Phone: [facility] 05-02-2024 13:17-0400 SaO2% (BldA) [Mass fraction] 96 % Adilson Salazar MD Work Phone: [facility] 05-02-2024 13:17-0400 Systolic blood pressure 170 mm[Hg] Adilson Salazar MD Work Phone: [facility] 02-02-2023 10:20-0400 Blood Pressure Location Milvia Lue [facility] 02-02-2023 10:20-0400 Diastolic blood pressure 82 mm[Hg] Milvia Lue [facility] 02-02-2023 10:20-0400 Heart rate 72 /min Milvia Lue [facility] 02-02-2023 10:20-0400 Systolic blood pressure 132 mm[Hg] Milvia Lue [facility] 11-03-2022 08:12-0400 Blood Pressure Location Milvia Lue [facility] 11-03-2022 08:12-0400 Diastolic blood pressure 81 mm[Hg] Milvia Lue [facility] 11-03-2022 08:12-0400 Heart rate 77 /min Milvia Lue [facility] 11-03-2022 08:12-0400 Systolic blood pressure 131 mm[Hg] Milvia Lue [facility] 08-04-2022 08:56-0500 Blood Pressure Location Milvia Lue [facility] 08-04-2022 08:56-0500 Diastolic blood pressure 90 mm[Hg] Milvia Lue [facility] 08-04-2022 08:56-0500 Heart rate 78 /min Milvia Lue [facility] 08-04-2022 08:56-0500 Respiratory rate 16 /min Milvia Lue [facility] 08-04-2022 08:56-0500 Systolic blood pressure 140 mm[Hg] Milvia Lue [facility] 07-06-2022 17:09-0500 Body temperature 97.88 [degF] Milvia Lue [facility] 07-06-2022 17:09-0500 Diastolic blood pressure 88 mm[Hg] Milvia Lue [facility] 07-06-2022 17:09-0500 Heart rate 80 /min Milvia Lue [facility] 07-06-2022 17:09-0500 Mean blood pressure 114 mm[Hg] Milvia Lue [facility] 07-06-2022 17:09-0500 Respiratory rate 16 /min Milvia Lue [facility] 07-06-2022 17:09-0500 SaO2% (BldA) [Mass fraction] 98 % Milvia Lue [facility] 07-06-2022 17:09-0500 Systolic blood pressure 165 mm[Hg] Milvia Lue [facility] 07-06-2022 16:24-0500 Blood Pressure Location Milvia Lue [facility] 07-06-2022 16:24-0500 Body temperature 97.88 [degF] Milvia Lue [facility] 07-06-2022 16:24-0500 Diastolic blood pressure 98 mm[Hg] Milvia Lue [facility] 07-06-2022 16:24-0500 Heart rate 76 /min Milvia Lue [facility] 07-06-2022 16:24-0500 Mean blood pressure 122 mm[Hg] Milvia Lue [facility] 07-06-2022 16:24-0500 SaO2% (BldA) [Mass fraction] 96 % Milvia Lue [facility] 07-06-2022 16:24-0500 Systolic blood pressure 169 mm[Hg] Milvia Lue [facility] 07-06-2022 16:16-0500 Blood Pressure Location Milvia Lue [facility] 07-06-2022 16:16-0500 Body temperature 97.52 [degF] Milvia Lue [facility] 07-06-2022 16:16-0500 Diastolic blood pressure 105 mm[Hg] Milvia Lue [facility] 07-06-2022 16:16-0500 Heart rate 82 /min Milvia Lue [facility] 07-06-2022 16:16-0500 Respiratory rate 16 /min Milvia Lue [facility] 07-06-2022 16:16-0500 SaO2% (BldA) [Mass fraction] 98 % Milvia Lue [facility] 07-06-2022 16:16-0500 Systolic blood pressure 159 mm[Hg] Milvia Lue [facility] 07-06-2022 16:03-0500 Blood Pressure Location Milvia Lue [facility] 07-06-2022 16:03-0500 Respiratory rate 12 /min Milvia Lue [facility] 07-06-2022 15:58-0500 Respiratory rate 17 /min Milvia Lue [facility] 07-06-2022 15:48-0500 Body temperature 97.7 [degF] Milvia Lue [facility] 07-06-2022 10:40-0500 Mean blood pressure 106 mm[Hg] Milvia Lue [facility] 07-06-2022 10:40-0500 Heart rate 80 /min Milvia Lue [facility] 07-06-2022 10:39-0500 Body temperature 98.78 [degF] Milvia Lue [facility] 07-06-2022 10:39-0500 Mean blood pressure 113 mm[Hg] Milvia Lue [facility] 07-06-2022 10:39-0500 Respiratory rate 20 /min Milvia Lue [facility] 06-30-2022 17:30-0500 Blood Pressure Location Milvia Lue [facility] 06-30-2022 17:30-0500 BP/Pulse Patient Position Milvia Lue [facility] 06-30-2022 17:30-0500 Diastolic blood pressure 84 mm[Hg] Milvia Lue [facility] 06-30-2022 17:30-0500 Systolic blood pressure 175 mm[Hg] Milvia Lue [facility] 06-30-2022 17:22-0500 Blood Pressure Location Milvia Lue [facility] 06-30-2022 17:22-0500 Diastolic blood pressure 96 mm[Hg] Milvia Lue [facility] 06-30-2022 17:22-0500 Heart rate 67 /min Milvia Lue [facility] 06-30-2022 17:22-0500 Mean blood pressure 125 mm[Hg] Milvia Lue [facility] 06-30-2022 17:22-0500 Systolic blood pressure 185 mm[Hg] Milvia Lue [facility] 06-30-2022 16:53-0500 Blood Pressure Location Milvia Lue [facility] 06-30-2022 16:53-0500 Body temperature 98.96 [degF] Milvia Lue [facility] 06-30-2022 16:53-0500 BP/Pulse Patient Position Milvia Lue [facility] 06-30-2022 16:53-0500 Diastolic blood pressure 96 mm[Hg] Milvia Lue [facility] 06-30-2022 16:53-0500 Heart rate 76 /min Mivlia Lue [facility] 06-30-2022 16:53-0500 Mean blood pressure 124 mm[Hg] Milvia Lue [facility] 06-30-2022 16:53-0500 Respiratory rate 18 /min Milvia Lue [facility] 06-30-2022 16:53-0500 Systolic blood pressure 180 mm[Hg] Milvia Lue [facility] 06-30-2022 16:52-0500 BP/Pulse Patient Position Milvia Lue [facility] 06-30-2022 16:52-0500 Heart rate 79 /min Milvia Lue [facility] 06-30-2022 16:52-0500 Mean blood pressure 124 mm[Hg] Milvia Lue [facility] 06-30-2022 16:52-0500 SaO2% (BldA) [Mass fraction] 98 % Milvia Lue [facility] 06-25-2022 15:25-0400 Blood Pressure Location Curtis AMAARLL [facility] 06-25-2022 15:25-0400 Diastolic blood pressure 86 mm[Hg] Curtis NILL [facility] 06-25-2022 15:25-0400 Heart rate 72 /min Curtis AMARALL [facility] 06-25-2022 15:25-0400 Respiratory rate 16 /min Curtis AMARALL [facility] 06-25-2022 15:25-0400 Systolic blood pressure 142 mm[Hg] Curtis AMARALL [facility] 06-02-2022 09:21-0400 Blood Pressure Location Milvia Lue [facility] 06-02-2022 09:21-0400 Diastolic blood pressure 86 mm[Hg] Milvia Lue [facility] 06-02-2022 09:21-0400 Heart rate 72 /min Milvia Lue [facility] 06-02-2022 09:21-0400 Systolic blood pressure 140 mm[Hg] Milvia Lue [facility] 05-26-2022 07:25-0400 Body height 182.88 cm MD Adilson Salazar Work Phone: [facility] 05-26-2022 07:25-0400 Body weight 98.88 kg MD Adilson Salazar Work Phone: [facility] 04-21-2022 11:39-0400 Respiratory rate 16 /min Mivlia Lue [facility] 06-09-2019 11:39-0400 Body Temperature 98.29 [degF] [place] 06-09-2019 11:39-0400 BP Diastolic 79 mm[Hg] [place] 06-09-2019 11:39-0400 BP Systolic 134 mm[Hg] [place] 06-09-2019 11:39-0400 Pulse (Heart Rate) 84 /min [place] 06-09-2019 11:39-0400 Pulse Oximetry 95 % [place] 06-09-2019 11:39-0400 Respiratory Rate 20 /min [place] 06-05-2019 20:48-0400 BMI (Body Mass Index) 29.84 kg/m2 [facility] JOYCELYN 06-05-2019 20:48-0400 Body weight 99.79 kg [facility] JOYCELYN 06-05-2019 20:48-0400 Height 182.9 cm [facility] JOYCELYN Encounters Encounter Date Encounter Type Care Provider Facility Start: 08-07-2024 End: 08-07-2024 ambulatory [facility] Start: 07-24-2024 ambulatory [facility] Start: 07-02-2024 End: 07-02-2024 Office outpatient visit 25 minutes Adilson Salazar MD Work Phone: [facility] Comment on above: Type 2 diabetes thomas itus with hyperglycemia, with long-term current use of insulin (CMS/HCC) (Primary Dx); Essential hypertension, benign (CMS/HCC); Heart failure with improved ejection fraction (HFimpEF) (CMS/HCC); Coronary artery disease involving navajo coronary artery of navajo heart without angina pectoris (CMS/[facility]) Start: 07-02-2024 End: 07-02-2024 ambulatory ADILSON SALAZAR Not Available Start: 07-02-2024 End: 07-02-2024 Bamboo flowsheet Adilson Salazar MD Work Phone: [facility] Start: 07-02-2024 End: 07-02-2024 Bamboo flowsheet Adilson Salazar MD Work Phone: [facility] Start: 06-01-2024 End: 06-01-2024 ambulatory [facility] Start: 05-18-2024 End: 05-18-2024 Bamboo flowsheet Adilson Salazar MD Work Phone: [facility] Start: 05-18-2024 End: 05-18-2024 Bamboo flowsheet Adilson Salazar MD Work Phone: [facility] Start: 05-18-2024 End: 05-18-2024 Transitional care manage srvc 7 day discharge Adilson Salazar MD Work Phone: [facility] Comment on above: Single subsegmental pulmonary embolism without acute cor pulmonale (CMS/HCC) (Primary Dx); Pneumonia of right lower lobe due to infectious organism; NSTEMI (non-ST elevated myocardial infarction) ([facility]); Coronary artery disease involving navajo coronary artery of navajo heart without angina pectoris ([facility]); Type 2 diabetes mellitus with hyperglycemia, with long-term current use of insulin ([facility]) Start: 05-18-2024 End: 05-18-2024 ambulatory ADILSON SALAZAR Not Available Start: 05-09-2024 End: 05-11-2024 Clinisync Result Encounter Generic External Data Provider [facility] External [facility] Unsolicited Start: 05-09-2024 End: 05-11-2024 Clinisync Result Encounter Generic External Data Provider [facility] External Department Unsolicited Start: 05-02-2024 End: 05-02-2024 Bamboo flowsheet Adilson Salazar MD Work Phone: [facility] Start: 05-02-2024 End: 05-02-2024 Long flowsjac Salazar MD Work Phone: [facility] Start: 05-02-2024 End: 05-02-2024 ambulatory ADILSON SALAZAR Not Available Start: 05-02-2024 End: 05-02-2024 Office outpatient visit 25 minutes Adilson Salazar MD Work Phone: [facility] Comment on above: Heart failure with i mproved ejection fraction (HFimpEF) ([facility]) (Primary Dx); Type 2 diabetes mellitus with hyperglycemia, with long-term current use of insulin ([facility]); Coronary artery disease involving navajo coronary artery of navajo heart without angina pectoris ([facility]); Essential hypertension, benign ([facility]); Bilateral impacted cerumen Start: 04-10-2024 ambulatory VIVIAN Marx [facility] Start: 03-28-2024 End: 03-28-2024 ambulatory ADILSON SALAZAR Not Available Start: 03-13-2024 Evaluation and management of inpatient [facility] Start: 03-13-2024 Evaluation and management of inpatient [facility] Start: 03-13-2024 End: 03-14-2024 Evaluation and management of inpatient DASHAWN SAAB [facility] Start: 03-13-2024 End: 03-13-2024 Emergency department patient visit [facility] Start: 02-14-2024 End: 02-14-2024 ambulatory [facility] Start: 02-06-2024 ambulatory [facility] Start: 12-29-2023 End: 12-29-2023 ambulatory ADILSON SALAZAR Not Available Start: 10-31-2023 End: 10-31-2023 ambulatory YESENIAAlex SHANIQUA [facility] Start: 09-29-2023 Clinisync Result Encounter Adilson Salazar MD Work Phone: [facility] Unsolicited Start: 09-29-2023 Clinisync Result Encounter Adilson Salazar MD Work Phone: [facility] Unsolicited Start: 09-29-2023 Orders Only [facility] Bell [facility] Comment on above: Type 2 diabetes thomas itus with hyperglycemia, with long-term current use of insulin ([facility]) Start: 09-26-2023 End: 09-26-2023 ambulatory ADILSON SALAZAR Not Available Start: 09-20-2023 End: 09-20-2023 ambulatory [facility] Start: 08-05-2023 End: 08-05-2023 ambulatory ADILSON SALAZAR Not Available Start: 02-02-2023 End: 02-03-2023 ambulatory Milvia Palomo Facility:[facility] Start: 02-02-2023 End: 02-02-2023 Patient encounter procedure Milvia Palomo [facility] Start: 11-17-2022 End: 11-17-[address] ADILSON SALAZAR Facility: Start: 11-03-2022 End: 11-04-2022 ambulatory Milvia Palomo Facility:[facility] Start: 11-03-2022 End: 11-03-2022 Patient encounter procedure Milvia PriyaAbran Palomo [facility] Start: 10-25-2022 End: 10-26-2022 ambulatory MILVIA PALOMO Facility:[facility] Start: 10-12-2022 ambulatory Daniel BAEZA Ann-Marie ty:[facility] Start: 10-06-2022 End: 10-07-2022 ambulatory Milvia Palomo Facility:[facility] Start: 10-06-2022 End: 10-06-2022 Patient encounter procedure Milvia PowersAbran Danieljosiah [facility] Start: 09-22-2022 End: 09-22-2022 ambulatory Natasha Hassan Facility:[facility] Start: 09-20-2022 End: 09-20-2022 ambulatory MD Adilson Salazar Work Phone: [facility] Work Phone: Start: 09-20-2022 End: 09-20-2022 Patient encounter procedure MD Adilson Salazar Work Phone: [facility] Work Phone: Start: 08-06-2022 End: 08-07-[address] CURTIS GRACIA . Facility:[facility] Start: 08-04-2022 End: 08-05-2022 ambulatory Milvia Palomo Facility:[facility] Start: 08-04-2022 End: 08-04-2022 Patient encounter procedure Milvia Palomo [facility] Start: 08-03-2022 ambulatory Curtis GRACIA Facility :[facility] Start: 07-21-2022 Encounter for preprocedural laboratory examination DR CURTIS GRACIA . [facility] Start: 07-21-2022 End: 07-22-[address] CURTIS GRACIA . Facility: Start: 07-17-2022 End: 07-18-[address] CURTIS GRACIA . Facility: Start: 07-17-2022 End: 07-18-2022 Encounter for preprocedural laboratory examination DR CURTIS GRACIA . Facility: Start: 07-06-2022 End: 07-06-2022 ambulatory Milvia Palomo [place] Start: 07-06-2022 End: 07-06-2022 Admission to same day surgery center Milvia Palomo [facility] Start: 06-30-2022 End: 07-01-2022 ambulatory Milvia Palomo [place] Start: 06-30-2022 End: 06-30-2022 Patient encounter procedure Milvia Palomo [facility] Start: 06-29-2022 End: 09-28-2022 ambulatory Milvia Palomo [place] Start: 06-25-2022 End: 06-26-2022 ambulatory Curtis GRACIA Facility:[facility] Start: 06-25-2022 End: 06-25-2022 Patient encounter procedure Curtis GRACIA General Surgery [facility] Start: 06-15-2022 End: 06-16-[address] ADILSON SALAZAR Facility: Start: 06-07-2022 End: 06-07-[address] ADILSON SALAZAR Facility: Start: 06-04-2022 ambulatory Daniel BAEZA Facility :[facility] Start: 06-03-2022 End: 09-27-2022 Recurring Milvia Palomo [facility] Start: 06-02-2022 End: 06-03-2022 ambulatory Milvia Palomo [facility] Start: 06-02-2022 End: 06-30-2022 Pre-admission assessment Milvia Palomo [facility] Start: 06-02-2022 End: 06-02-2022 Patient encounter procedure [facility] Start: 05-26-2022 End: 05-26-2022 ambulatory MD Adilson Salazar Work Phone: [facility] Work Phone: Start: 05-26-2022 End: 05-26-2022 Patient encounter procedure MD Adilson Salazar Work Phone: [facility] [place] Start: 04-21-2022 End: 04-22-2022 ambulatory Milvia Palomo Facility:[facility] Start: 04-21-2022 End: 04-21-2022 Patient encounter procedure Milvia Palomo [facility] Start: 01-26-2022 End: 01-27-[address] ADILSON SALAZAR Facility: Start: 06-05-2019 End: 06-09-2019 Evaluation and management of inpatient OSCAR HARP [facility] Start: 06-05-2019 End: 06-09-2019 Evaluation and management of inpatient Anselmo Garza Work Phone: [facility] 5C Neuro Comment on above: Cerebrovascular acci dent (CVA), unspecified mechanism (HCC) (Primary Dx) Procedures Date Procedure Procedure Detail Performing Clinician Start: 05-09-2024 BLOOD CULTURE 1 Generic External Data Provider Start: 09-29-2023 MLR HEMOGLOBIN A1C Adilson Salazar MD Work Phone: Start: 09-20-2022 Positron emission tomography MD Adilson Salazar Work Phone: Start: 07-21-2022 Colonoscopy Adilson munoz MD Work Phone: Start: 07-06-2022 Biopsy of prostate Salud Palomo Start: 01-26-[address] ADILSON PEARSON Comment on above: Performed By: #### P TT, PT #### [facility] [address] [place] [address] Dr. Marcell Luque Start: 09-08-2020 Transrectal biopsy [...] Phone: Start: 06-09-2019 FACTOR 5 LEIDEN OSCAR BR SUSHILA Start: 06-09-2019 PROTHROMBIN GENE MUTATION OSCAR [...] HARP Start: 06-09-2019 Assay of homocysteine L rds Bryn Morales Work Phone: Start: 06-09-2019 Basic metabolic pane l calcium total OSCAR HARP Start: 06-09-2019 Blood count complete auto&auto difrntl wbc OSCAR HARP Start: 06-09-2019 Glucose blood reagent strip Omer Zambrano Work Phone: Start: 06-09-2019 Basic metabolic pane l calcium total Nicanor Al-Dabbas Work Phone: Start: 06-09-2019 Blood count complete auto&auto difrntl wbc MaNicanor Al-Dabbas Work Phone: Start: 06-09-2019 Gluc bld [...] Chiang Start: 06-08-2019 INTAKE AND OUTPUT OSCAR HRAP Start: 06-08-2019 Gluc bld gluc mntr d ev cleared fda spec home use OSCAR HARP Start: 06-08-2019 Assay of magnesium Ma'E n Al-Dabbas Work Phone: Start: 06-08-2019 Assay of phosphorus inorganic Ma'En Al-Dabbas Work Phone: Start: 06-08-2019 Basic metabolic pane l calcium total Ma'En Al-Dabbas Work Phone: Start: 06-08-2019 Blood count complete auto&auto difrntl wbc Ma'En Al-Dabbas Work Phone: Start: 06-07-2019 Glucose blood [...] 06-07-2019 WOUND CARE OSCAR HARP Start: 06-07-2019 HAND STRAIGHTENER REPORT OSCAR RITTER SUSHILA Start: 06-07-2019 Glucose blood reagent strip Oscar Harp Work Phone: Start: 06-07-2019 HAND STRAIGHTENER REPORT Hpf Sca nning Start: 06-07-2019 VERIFY [...] magnesium Vipin Bryn Morales Work Phone: Start: 10-16-2019 Assay of phosphorus inorganic Vipin Bryn Morales Work Phone: Start: 06-06-2019 Basic metabolic pane l calcium total Vipin Morales Work Phone: Start: 06-06-2019 Blood count complete auto&auto difrntl wbc Vipin oMrales Work Phone: Start: 06-06-2019 Hemoglobin glycosylated a1c Vipin Morales Work Phone: Start: 06-06-2019 Lipid panel Vipin Morales Work Phone: Start: 06-06-2019 Gluc bld [...] AL VTE PROPHYLAXIS OSCAR HARP Start: 06-06-2019 BROWNELL OPERATOR EVAL AND TREAT OSCAR HARP Start: 06-06-2019 ELEVATE HOB OSCAR HARP Start: 06-06-2019 NEURO/VASCULAR CHECKS Ciera HARP Start: 06-06-2019 NO ANTICOAGULANTS OSCAR HARP [...] OSCAR WILLIS Start: 06-05-2019 INSERT PERIPHERAL IV ROSIO HARP Start: 06-05-2019 IP CONSULT TO PHARMACY OSCAR HARP Start: 06-05-2019 NEURO/VASCULAR CHECKS Ciera HARP Start: 06-05-2019 NO ANTICOAGULANTS OSCAR HARP [...] Start: 06-05-2019 Glucose blood reagent strip OSCAR AHRP Start: 06-05-2019 Ct angiography neck w/contrast/noncontrast Mason [...] Garza Work Phone: Start: 08-22-2011 Colonoscopy Curtis DAIVS Arthroplasty of knee Milvia L ue Arthroplasty [...] 07-21-2032 Screening for malignant neoplasm of colon [facility] Start: 03-13-2025 Urine screening for protein Diabetes: Urine Protein Screening [facility] Start: 10-02-2024 End: 10-02-2024 Patient encounter procedure 10/02/2024 1:30 PM EST Office Visit [facility] [address] [place] [address] Adilson Salazar MD [address] [place] [phone] [facility] Start: 09-14-2024 Hemoglobin A1c measurement Diabetes: Hemoglobin A1C [facility] Start: 07-02-2024 End: 07-02-2024 Patient encounter procedure 07/02/2024 2:30 PM EST Office Visit [facility] [address] [place] [phone] Adilson Salazar MD [address] [place] [phone] [facility] Start: 07-02-2024 End: 07-02-2025 Hemoglobin A1c/Hemoglobin.total in Blood Hemoglobin A1c Lab Routine Type 2 diabetes mellitus with hyperglycemia, with long-term current use of insulin ([facility]) Expected: 07/02/2024 (Approximate), Expires: 07/02/2025 [facility] Work Phone: Comment on above: Expected: 07/02/2024 (Approximate), Expi res: 07/02/2025 Start: 06-17-2024 Urine screening for protein Diabetes: Urine Protein Screening [facility] Start: 06-14-2024 Hemoglobin A1c measurement Diabetes: Hemoglobin A1C [facility] Start: 05-18-2024 End: 05-18-[address] [facility] Comment on above: Arrived Start: 04-22-2024 Influenza vaccination Influenza Vaccine (#1) [facility] Start: 12-29-2023 End: 12-29-2023 Patient encounter procedure 12/29/2023 11:15 AM EDT Office Visit [facility] [address] [place] [address] Adilson Salazar MD [address] [place] [address] [facility] Start: 09-17-2023 Hemoglobin A1c measurement Diabetes: Hemoglobin A1C [facility] Start: 04-22-2023 Influenza vaccination Influenza Vaccine (#1) [facility] Start: 05-26-2022 MR Prostate WO and W contrast IV [facility] Start: 05-26-2022 MR prostate wo/w con MR prostate wo/w con [facility] Start: 06-08-2020 Creatinine monitoring Creatinine monitoring [place], [place] Start: 06-08-2020 Potassium monitoring Potassium monitoring [place] Start: 06-06-2020 Lipid screen Lipid screen [place] Start: 09-06-2019 A1C test (Diabetic or Prediabetic) A1C test (Diabetic or Prediabetic) [place] Start: 06-05-2019 Annual Wellness Visit (AWV) Annual Wellness Visit (AWV) [place] Start: 04-22-2019 Influenza vaccination Flu vaccine (#1) [place] Start: 03-20-2014 Pneumococcal Vaccine: 65+ Years (2 - PCV) Pneumococcal Vaccine: 65+ Years (2 - PCV) [facility] Start: 03-20-2014 Pneumococcal Vaccine: 65+ Years (2 of 2 - PCV) Pneumococcal Vaccine: 65+ Years (2 of 2 - PCV) [facility] Start: 11-08-2005 Colon cancer screen colonoscopy Colon cancer screen colonoscopy [place] Start: 11-08-2005 Shingles Vaccine (1 of 2) Shingles Vaccine (1 of 2) [place], [place] Start: 11-08-1974 DTaP/Tdap/Td vaccine (1 - Tdap) DTaP/Tdap/Td vaccine (1 - Tdap) [place] Start: 11-08-1973 Diabetic microalbuminuria test Diabetic microalbuminuria test [place] Start: 11-08-1970 HIV screen HIV screen [place] Start: 11-08-1965 [object Object] Diabetic foot exam [place] Start: 11-08-1965 Diabetic retinal exam Diabetic retinal exam [place], [place] Start: 11-08-1965 Glaucoma screening Diabetes: Retinopathy Screening [facility] Start: 1955 Hepatitis C screen Hepatitis C screen [place] Start: 1955 Screening for malignant neoplasm of colon [facility] End: 06-09-2019 ANTI-PHOSPHOLIPID AB ANTI-PHOSPHOLIPID AB Lab Routine One Time for 1 Occurrences starting 06/09/2019 until 06/09/2019 [place] Comment on above: One Time for 1 Occurrences starting 05/22 until 06/09/2019 ANTI-PHOSPHOLIPID AB ANTI-PHOSPH OLIPID AB Lab Routine 06/09/2019 9:41 AM EDT [place] Basic metabolic 2000 panel Basic Metabolic Panel Lab Routine Daily until discontinued starting 06/07/2019, 3 completed [place] Comment on above: Daily until discontinued starting 2018, 3 completed BLOOD CULTURE 1 BLOOD CULTURE 1 Lab Routine 05/09/2024 10:39 AM EDT [facility] CBC Auto Differential CBC Auto D ifferential Lab Routine Daily until discontinued starting 06/07/2019, 3 completed [facility] [place] Comment on above: Daily until discontinued starting 2018, 3 completed End: 06-07-2019 Diagnostic Cardiac Bar Attendant Procedure Diagnostic Cardiac Bar Attendant Procedure Cardiac Cath Routine One Time for 1 Occurrences starting 06/07/2019 until 06/07/2019 [facility] [place] Comment on above: One Time for 1 Occurrences starting 05/22 until 06/07/2019 End: 06-09-2019 Dilute Deepak Viper Dilute Deepak Viper Lab Routine One Time for 1 Occurrences starting 06/09/2019 until 06/09/2019 [facility] [place] Comment on above: One Time for 1 Occurrences starting 05/22 until 06/09/2019 Dilute Deepak Viper Dilute Jaime ell Viper Lab Routine 06/09/2019 9:41 AM EDT [facility] [place] End: 06-09-2019 FACTOR 5 LEIDEN FACTOR 5 LEIDEN Lab Routine One Time for 1 Occurrences starting 06/09/2019 until 06/09/2019 [facility] [place] Comment on above: One Time for 1 Occurrences starting 05/22 until 06/09/2019 End: 06-09-2019 FACTOR 8 ASSAY FACTOR 8 ASSAY Lab Routine One Time for 1 Occurrences starting 06/09/2019 until 06/09/2019 [facility] [place] Comment on above: One Time for 1 Occurrences starting 05/22 until 06/09/2019 FACTOR 8 ASSAY FACTOR 8 ASSAY L ab Routine 06/09/2019 9:41 AM EDT [facility] Home BIPAP or CPAP Home BIPAP or CPAP Respiratory Care Routine Daily until discontinued starting 06/07/2019 [facility] [place] Comment on above: Daily until discontinued starting 2018 Incentive spirometry Incentive s pirometry Respiratory Care Routine Daily until discontinued starting 06/06/2019 [facility] Comment on above: Daily until discontinued starting 2018 Initiate Oxygen Ther apy Protocol Initiate Oxygen Therapy Protocol Respiratory Care Routine Daily until discontinued starting 06/07/2019 [facility] [place] Comment on above: Daily until discontinued starting 2018 [facility] on above: 4X Daily (AC & HS) until discontinued st arting 06/06/2019 As Needed until disc ontinued starting 06/06/2019 End: 06-09-2019 Protein C Functional Protein C Functional Lab Routine One Time for 1 Occurrences starting 06/09/2019 until 06/09/2019 [facility] [place] Comment on above: One Time for 1 Occurrences starting 05/22 until 06/09/2019 Protein C Functional Protein C F unctional Lab Routine 06/09/2019 9:41 AM EDT [facility] End: 06-09-2019 Protein S Functional Protein S Functional Lab Routine One Time for 1 Occurrences starting 06/09/2019 until 06/09/2019 [facility] [place] Comment on above: One Time for 1 Occurrences starting 05/22 until 06/09/2019 Protein S Functional Protein S F unctional Lab Routine 06/09/2019 9:41 AM EDT [facility] End: 06-09-2019 Prothrombin Gene Mutation Prothrombin Gene Mutation Lab Routine One Time for 1 Occurrences starting 06/09/2019 until 06/09/2019 [facility] [place] Comment on above: One Time for 1 Occurrences starting 05/22 until 06/09/2019 End: 06-07-2019 Pulse oximetry, continuous Pulse oximetry, continuous Respiratory Care Routine Every 4hr for 24 Hours starting 06/06/2019 until 06/07/2019 [facility] [place] Comment on above: Every 4hr for 24 Hours starting 06/06/20 until 06/07/2019 Immunizations Immunization Date Immunization Notes Care Provider Tyra dailey 03-20-2013 pneumococcal polysaccharide vaccine, 23 valent Milvia Palomo [facility] Payers Date Payer Category Payer Unknown ALLIED BENEF[employer] [id number] 2023-Present [address] [place] [address] [id number] 2023 Unknown [id number] 2023 Private Health Insurance [id number] 2022 Self-pay [id number] 2018 Medicare MEDICARE MEDICAR E PART A AND B xxxxxxxxxxx 2018-Present [phone] [place] [address] xxxxxxxxxxx [id number] 1997 Medicare [id number] 1965 Unknown [id number] 2.16.840.1.154794.3.579.2 .1259 1959 Medicare [id number] 1955 Unknown [id number] 2.16.840.1.313924.3.579.2 .175 1955 Unknown [id number] 2.16.840.1.284658.3.579.2 .593 1955 Unknown [id number] 2.16.840.1.294793.3.579.2 .593 1955 Unknown [id number] 2.16.840.1.672288.3.579.2 .593 1955 Unknown [id number] 2.16.840.1.028712.3.579.2 .593 1955 Unknown [id number] 2.16.840.1.887353.3.579.2 .593 1955 Unknown [id number] 2.16.840.1.247833.3.579.2 .593 1955 Unknown [id number] 2.16.840.1.554422.3.579.2 .593 1955 Unknown [id number] 2.16.840.1.601547.3.579.2 .593 1955 Unknown [id number] 2.16.840.1.495749.3.579.2 .727 1955 Unknown [id number] 2.16.840.1.103241.3.579.2 .72 1955 Unknown [id number] 2.16.840.1.065680.3.579.2 .727 1955 Unknown [id number] 2.16.840.1.069472.3.579.2 .72 1955 Unknown [id number] 2.16.840.1.491372.3.579.2 .72 1955 Unknown [id number] 2.16.840.1.925600.3.579.2 .1955 Unknown [id number] 2.16.840.1.478150.3.579.2 .72 1955 Unknown [id number] 2.16.840.1.285140.3.579.2 .72 1955 Unknown [id number] 2.16.840.1.867412.3.579.2 .72 1955 Unknown [id number] 2.16.840.1.486059.3.579.2 .72 1955 Unknown [id number] 2.16.840.1.264997.3.579.2 .72 1955 Unknown [id number] 2.16.840.1.802477.3.579.2 .72 1955 Unknown [id number] 2.16.840.1.389775.3.579.2 .72 1955 Unknown [id number] 2.16.840.1.908142.3.579.2 .1259 1955 Unknown [id number] 2.16.840.1.313057.3.579.2 .1259 1955 Unknown [id number] 2.16.840.1.580861.3.579.2 .1259 1955 Unknown [id number] 2.16.840.1.161655.3.579.2 .1259 1955 Unknown [id number] 2.16.840.1.350982.3.579.2 .1259 1955 Unknown [id number] 2.16.840.1.232219.3.579.2 .1259 1955 Unknown [id number] 2.16.840.1.300764.3.579.2 .1259 Unknown [id number] Medicare Medicare Outpatient [id number] Private Health Insurance [facility] [id number] Unknown [id number] 2.16.840.1.674158.3.579.2 .531 Social History Date Type Detail Facility Start: 06-06-2019 End: 08-05-2023 Tobacco smoking status CTIS Never smoker [facility] Start: 06-06-2019 End: 05-02-2024 Alcohol intake [place] Start: 06-05-2019 History SDOH Alcohol Frequency 1 [place] Start: 1955 Sex Assigned At Not on file [place] Tobacco smoking status Never [facility] Start: 06-25-2021 End: 08-04-2022 Tobacco smoking status NHIS Ex-smoker (finding) [facility] Start: 1955 Sex Assigned At Male F [facility] Start: 08-05-2023 Tobacco use and exposure Smokeless tobacco non-user [facility] Start: 09-26-2023 End: 05-02-2024 Alcohol intake Ex-drinker (finding) [facility] Start: 09-26-2023 End: 05-02-2024 History of Social function [facility] Medical Equipment Procedure Code Equipment Code Equipment Origin al Text Equipment Identifier Dates 1 each by In Vit ro route in the morning and 1 each in the evening and 1 each before bedtime. [id number] Start: 09-26-2023 1 each in the morning and 1 each in the evening and 1 each before bedtime. [id number] Start: 09-26-2023 Functional Status Date Assessment Result Facility 02-02-2023 Functional Status N/A [facility] 11-03-2022 Functional Status N/A [facility] 10-06-2022 Functional Status N/A [facility] 08-04-2022 Functional Status N/A [facility] 06-30-2022 Functional Status No [facility] 06-25-2022 Functional Status N/A [facility] 06-02-2022 Functional Status N/A [facility] 04-21-2022 Functional Status N/A [facility] Clinical Notes 04-21-2022 to 08-07-2024 Adilson Salazar MD - 07/02/2024 2:59 PM Kyle Salazar MD - 07/02/2024 2:58 PM Kyle Salazar MD - 07/02/2024 2:58 PM Kyle Salazar MD - 07/02/2024 2:58 PM EST Note Date & Type Note Facility 08-07-2024 Note aPATIENT: Eunice noble DATE OF : 1955 DATE OF VISIT: 08/07/24 Urology Clinic [facility]&P PHYLLIS ACOSTA M.D., F.A.C.S. 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 Eunice Marte is a 68 y.o. -Indian male with history of HTN, HLD, Diabetes Mellitus Type 2, Stroke (04/2015 resulted in right sided weakness since has improved), CAD, SD in 2021 on ASA 81mg s/p implantable [...] urologist Milvia Daniel MD on 07/06/2022 at [facility] for a total of 24 cores (12 systematic cores x2 and 4 cores obtained from MARÍA ELENA #1). Pathology per [facility] review revealed acinar adenocarcinoma of the prostate, [place] 3+4= 7; GG 2 involving 2/13 in [...] distant metastatic disease. Decipher prostate biopsy genomic equipment hire manager was obtained on prostate biopsy above, [...] concurrently he started relugolix 120 mg/day on 06/08/2023, completed in 05/2024. At this visit, Mr. Marte presents for follow-up using a cane accompanied by his . Patient's memory has been affected by his a prior stroke, waxing and waning. He denies changes in health since last visit, specifically no gross hematuria, dysuria, however, has moderately significant LUTS, nocturia x3. He reports being happy with his urination. Right foot swelling resolved without intervention. Prior AUA-SI , QoL 5 (unhappy) despite being on Myrbetriq 50 mg daily. However currently no longer taking Myrbetriq 50 mg, denies urinary urgency/urge incontinence. THANH 0/25 (has IPP in place, not currently sexually active since stroke in 2014). He can walk using a cane a couple of blocks [...] nodule, cT2a. I reviewed and discussed outside [employer] consultant note, outside laboratory tests, outside imaging including MRI prostate and PSMA, pathology result of prostate biopsy, and decipher score. Mr. Marte has unfavorable intermediate risk prostate cancer by NCCN criteria since he has 2 intermediate risk factors (PSA 11.09 ng/mL and GG2 prostate cancer), however, decipher genomic equipment hire manager designate patient as a high risk with a score of 0.73. His ECOG performance status 2. After thorough and prolonged discussion, Mr. Marte underwent EBRT to the prostate and SV concurrently with ADT with Orgovyx which he is currently taking. I reviewed and discussed most recent stable PSA 0.1 ng/ML, & testosterone 52 ng/dL on 07/24/2024 indicating appropriate response to EBRT and hormone therapy. He has completed 1 year of ADT with regular Orgovyx. Further I reviewed and discussed DEXA bone density scan on 05/2023 revealed normal bone mineral density (more content not included)... [facility] 07-02-2024 History of Present illness Narrative Associated Problem(s): Type 2 diabetes mellitus with hyperglycemia (CMS/HCC) Reports BS elevated and due for A1C. Stick to ADA diet and limit carbs. Associated Problem(s): Heart failure with improved ejection fraction (HFimpEF) (CMS/HCC) Edema stable and continue medication. Associated Problem(s): Essential hypertension, benign (CMS/HCC) BP elevated but previously controlled and monitor PRN. Associated Problem(s): Coronary artery disease involving navajo coronary artery of navajo heart without angina pectoris (CMS/HCC) Continue medication and follow with cardiology. Images from the original note were not included. Subjective Patient ID: Eunice Marte is a 68 y.o. male who presents for Follow-up (3 m) and Fatigue (No energy). Follow up DM, HTN, CHF, and CAD. Patient stable today. Reports BS elevated around 200. Tries to eat well and stick to ADA diet. Denies signs of elevated BS such as polyuria, polyphagia or polydipsia. Not checking BP away from office but very high today. Reports forgot to take medication this morning. Edema controlled with medication. Mild swelling at end of day and if on feet a lot. Edema improved in am and with elevation. Following with cardiology and no chest pain or palpitations. Review of Systems Constitutional: Negative for fatigue. Respiratory: Negative for cough, shortness of breath and wheezing. Cardiovascular: Negative for chest pain and palpitations. Gastrointestinal: Negative for abdominal pain, diarrhea, nausea and vomiting. Genitourinary: Negative for dysuria. Objective Physical Exam Constitutional: General: He is not in acute distress. Appearance: Normal appearance. HENT: Head: Normocephalic. Right Ear: Tympanic membrane and ear canal normal. Left Ear: Tympanic membrane and ear canal normal. Eyes: Extraocular Movements: Extraocular movements intact. Pupils: Pupils are equal, round, and reactive to light. Cardiovascular: Rate and Rhythm: Normal rate and regular rhythm. Heart sounds: No murmur heard. No friction rub. No gallop. Pulmonary: Breath sounds: Normal breath sounds. No wheezing, rhonchi or rales. Abdominal: General: Bowel sounds are normal. There is no distension. Palpations: Abdomen is soft. Tenderness: There is no abdominal tenderness. There is no guarding or rebound. Musculoskeletal: Left lower leg: No edema. Neurological: Mental Status: He is alert. Assessment/Plan Problem List Items Addressed This Visit Essential hypertension, benign (CMS/HCC) BP elevated but previously controlled and monitor PRN. Type 2 diabetes mellitus with hyperglycemia (CMS/HCC) - Primary Reports BS elevated and due for A1C. Stick to ADA diet and limit carbs. Relevant Orders Hemoglobin A1c Coronary artery disease involving navajo coronary artery of navajo heart without angina pectoris (CMS/HCC) Continue medication and follow with cardiology. Heart failure with improved ejection fraction (HFimpEF) (CMS/HCC) Edema stable and continue medication. documented in this encounter [facility] 06-01-2024 Note [place] [facility] Heart and Vascular Center Asher Marte is a 68 y.o. year old male patient being seen for follow up. He was previously hospitalized for NSTEMI s/p coronary angiogram on 03/14/24 with CAD and recommendations for medical management. He has past medical history of HTN, hyperlipidemia, seizure disorder, DVT, DM type 2, CVA (2019), chronic systolic HF, ALLISON. He presents today for follow up. He is doing well. He reports rare episodes of chest pain. Patient adamantly denies any additional cardiac complaints or concerns. Patient denies any shortness of breath. Patient denies any lower extremity edema, orthopnea, or proximal nocturnal dyspnea. No near-syncope or syncope. No dizziness or lightheadedness. Patient Active Problem List Diagnosis Prostate cancer ([facility]) Cerebrovascular accident (CVA) ([facility]) History of diabetes mellitus History of DVT (deep vein thrombosis) History of hypertension History of ischemic left MCA stroke Hypercholesterolemia Hypertension Partial seizure ([facility]) Type 2 diabetes mellitus without complication, with long-term current use of insulin ([facility]) Osteoarthritis of knee Malignant neoplasm of prostate ([facility]) NSTEMI (non-ST elevated myocardial infarction) ([facility]) Chest pain BPH associated with nocturia Essential hypertension, benign Type 2 diabetes mellitus with hyperglycemia ([facility]) Vitamin D deficiency ALLISON on CPAP Acute anemia Chronic systolic heart failure ([facility]) retirement (current) use of insulin ([facility]) Mixed hyperlipidemia Elevated lipoprotein(a) Coronary artery disease involving navajo coronary artery of navajo heart without angina pectoris Family History Problem Relation Name Age of Onset Heart disease Mother 58 Heart disease Maternal Grandmother heart trouble Heart disease Maternal Grandfather heart trouble Social History Tobacco Use Smoking status: Former Current packs/day: 0.00 Average packs/day: 0.3 packs/day for 20.0 years (5.0 ttl pk-yrs) Types: Cigarettes Start date: 1994 Quit date: 2014 Years since quittin.8 Passive exposure: Past Smokeless tobacco: Never Vaping Use Vaping status: Never Used Substance Use Topics Alcohol use: Not Currently [...] dizziness and light-headedness. Objective Visit Vitals BP 128/77 Pulse 80 Ht 1.829 m (6') Wt 108 kg (239 lb) SpO2 96% BMI 32.41 kg/m??? Smoking Status Former BSA 2.34 m??? Physical Exam Vitals reviewed. Constitutional: General: [...] distress. Breath sounds: Normal breath sounds. No wheezing, rhonchi or rales. Abdominal: General: There is no distension. Palpations: Abdomen is soft. Tenderness: There is no abdominal tenderness. Musculoskeletal: Cervical back: Neck supple. Right lower leg: No edema. Left lower leg: No edema. Skin: General: Skin is warm and dry. Capillary Refill: Capillary refill takes less than 2 seconds. Neurological: General: No focal deficit present. Mental Status: He is alert and oriented to person, place, and time. Mental status is at baseline. Psychiatric: Mood and Affect: Mood normal. Behavior: Behavior normal. Allergies Allergies Allergen Reactions Penicillins Hives Other reaction(s): Other (See Comments) Labetalol Medications Current Outpatient Medications: amLODIPine (Norvasc) 10 mg tablet, Take 10 mg by mouth in the morning., Disp: , Rfl: aspirin 81 mg EC tablet, Take 1 tablet by mouth in the morning., Disp: , Rfl: carvedilol (Coreg) 6.25 mg tablet, Take 6.25 mg by mouth with breakfast and with evening meal., Disp: , Rfl: Eliquis 5 mg tablet, Take 5 mg by mouth twice a day., Disp: , Rfl: evolocumab 140 mg/mL pen injector, Inject 140 mg under the skin every 14 (fourteen) days., Disp: 2 mL, Rfl: 11 ezetimi (more content not included)... [facility] 05-18-2024 History of Present illness Narrative Associated Problem(s): Type 2 diabetes mellitus with hyperglycemia (CMS/HCC) Not remember BS results and continue medication. Associated Problem(s): Single subsegmental pulmonary embolism without acute cor pulmonale (CMS/HCC) Recent PE and continue Eliquis. Prior DVT years ago and need life long anticoagulation. Associated Problem(s): Pneumonia of right lower lobe due to infectious organism Recent pneumonia and complete levaquin. Associated Problem(s): NSTEMI (non-ST elevated myocardial infarction) (CMS/HCC) Recent admission and cath in February. Continue medication and follow with cardiology. Associated Problem(s): Coronary artery disease involving navajo coronary artery of navajo heart without angina pectoris ([facility]) Continue medication and follow with cardiology. Images from the original note were not included. Subjective Patient ID: Eunice Marte is a 68 y.o. male who presents for Follow-up ([facility] f/u). Hospital follow up from 05/09-05/11 for PE, pneumonia, and NSTEMI. Developed cough and SOB for several days. Severe fatigue and feverish. Chest tight and pain with inspiration. To ER and CTA showed RLL subsegmental PE and RLL pneumonia. Admitted and started levaquin and lovenox. Echo normal. Troponin elevated and consulted cardiology. Improved in hospital and no medication changes. Discharged on Eliquis and levaquin. Improved today. Mild SOB with exertion. Cough improved and no sputum. Using albuterol PRN and helps. Checking BS but not remember the numbers. Review of Systems Constitutional: Negative for fatigue. Respiratory: Negative for cough, shortness of breath and wheezing. Cardiovascular: Negative for chest pain and palpitations. Gastrointestinal: Negative for abdominal pain, diarrhea, nausea and vomiting. Genitourinary: Negative for dysuria. Objective Physical Exam Constitutional: General: He is not in acute distress. Appearance: Normal appearance. HENT: Head: Normocephalic. Right Ear: Tympanic membrane and ear canal normal. Left Ear: Tympanic membrane and ear canal normal. Eyes: Extraocular Movements: Extraocular movements intact. Pupils: Pupils are equal, round, and reactive to light. Cardiovascular: Rate and Rhythm: Normal rate and regular rhythm. Heart sounds: No murmur heard. No friction rub. No gallop. Pulmonary: Breath sounds: Normal breath sounds. No wheezing, rhonchi or rales. Abdominal: General: Bowel sounds are normal. There is no distension. Palpations: Abdomen is soft. Tenderness: There is no abdominal tenderness. There is no guarding or rebound. Musculoskeletal: Left lower leg: No edema. Neurological: Mental Status: He is alert. Assessment/Plan Problem List Items Addressed This Visit Type 2 diabetes mellitus with hyperglycemia (CMS/HCC) Not remember BS results and continue medication. Coronary artery disease involving navajo coronary artery of navajo heart without angina pectoris ([facility]/HCC) Continue medication and follow with cardiology. Single subsegmental pulmonary embolism without acute cor pulmonale ([facility]/HCC) - Primary Recent PE and continue Eliquis. Prior DVT years ago and need life long anticoagulation. Pneumonia of right lower lobe due to infectious organism Recent pneumonia and complete levaquin. NSTEMI (non-ST elevated myocardial infarction) ([facility]/HCC) Recent admission and cath in February normal. Continue medication and follow with cardiology. documented in this encounter [facility] 05-02-2024 History of Present illness Narrative Associated Problem(s): Type 2 diabetes mellitus with hyperglycemia (CMS/HCC) BS stable and add ozempic. Associated Problem(s): Heart failure with improved ejection fraction (HFimpEF) ([facility]/HCC) Worsening edema and start lasix. Add ozempic. Stop actos as possibly causing edema. If no improvement will need to add aldactone. Associated Problem(s): Essential hypertension, benign (CMS/HCC) BP elevated but previously controlled and monitor PRN. Associated Problem(s): Coronary artery disease involving navajo coronary artery of navajo heart without angina pectoris (CMS/HCC) Add ozempic and follow with cardiology. Associated Problem(s): Bilateral impacted cerumen Ears plugged and bilateral impaction on exam. Ears irrigated with water and cerumen removed with speculum. Canals clear after procedure. Use debrox or drops of baby oil to prevent build up of wax in future. Do not use q-tips inside ear. Images from the original note were not included. Subjective Patient ID: Eunice Marte is a 68 y.o. male who presents for Follow-up, Edema (Hands and feet/), and Shortness of Breath (Winded easily). C/o edema of hands and feet for months but much worse over the past few weeks. Severe swelling and skin feels tight. Edema worse as day progress and improved with elevation and in am. History of CHF and echo in February showed improved EF 55%. C/o severe fatigue and SOB with exertion over past few weeks. Reports BS stable and last A1C 8.0. Tries to stick to ADA diet and limit carbs. C/o ears plugged over the past few weeks. Feels like something in ear and hard to hear. No drainage. Prior wax impaction in past and needed irrigated in past. Review of Systems Constitutional: Negative for fatigue. Respiratory: Negative for cough, shortness of breath and wheezing. Cardiovascular: Negative for chest pain and palpitations. Gastrointestinal: Negative for abdominal pain, diarrhea, nausea and vomiting. Genitourinary: Negative for dysuria. Objective Physical Exam Constitutional: General: He is not in acute distress. Appearance: Normal appearance. HENT: Head: Normocephalic. Right Ear: Tympanic membrane and ear canal normal. Left Ear: Tympanic membrane and ear canal normal. Eyes: Extraocular Movements: Extraocular movements intact. Pupils: Pupils are equal, round, and reactive to light. Cardiovascular: Rate and Rhythm: Normal rate and regular rhythm. Heart sounds: No murmur heard. No friction rub. No gallop. Pulmonary: Breath sounds: Normal breath sounds. No wheezing, rhonchi or rales. Abdominal: General: Bowel sounds are normal. There is no distension. Palpations: Abdomen is soft. Tenderness: There is no abdominal tenderness. There is no guarding or rebound. Musculoskeletal: Left lower leg: No edema. Neurological: Mental Status: He is alert. Assessment/Plan Problem List Items Addressed This Visit Essential hypertension, benign ([facility]) BP elevated but previously controlled and monitor PRN. Type 2 diabetes mellitus with hyperglycemia ([facility]) BS stable and add ozempic. Relevant Medications semaglutide (Ozempic, 0.25 or 0.5 MG/DOSE,) 2 MG/1.5ML solution pen-injector Coronary artery disease involving navajo coronary artery of navajo heart without angina pectoris ([facility]) Add ozempic and follow with cardiology. Heart failure with improved ejection fraction (HFimpEF) ([facility]) - Primary Worsening edema and start lasix. Add ozempic. Stop actos as possibly causing edema. If no improvement will need to add aldactone. Relevant Medications furosemide (Lasix) 40 MG tablet Bilateral impacted cerumen Ears plugged and bilateral impaction on exam. Ears irrigated with water and cerumen removed with speculum. Canals clear after procedure. Use debrox or drops of baby oil to prevent build up of wax in future. Do not use q-tips inside ear. documented in this encounter [facility] 04-17-2024 Note Received paper copy of [...] sign the consent form. Will prepare appeal. July Rankin, PharmD, BCACP 04/24/24 11:31 AM [facility] [phone] [facility] 04-17-2024 Note I called the patient and he received the medication and does not have any questions at this time. Antoinette Gan, administrative assistant front desk [facility] 05/01/24 2:05 PM [facility] 04-17-2024 Note PA still in process, follow up on 04/23 for PA status. Rajiv Lora, Elderly Sitter [facility], [id number] 04/19/24 11:16 AM [facility] 04-17-2024 Note Specialty Pharmacy N [place]: [facility] Supervising Physician & Clinic:?? Vivian Billy NP; cardiology Eunice Marte is a 68 y.o. year old male patient with PMH of: Past Medical History: Diagnosis Date Asthma BPH (benign prostatic hyperplasia) CAD (coronary artery disease) CKD (chronic kidney disease), stage III ([facility]) Depression DM (diabetes mellitus) ([facility]) 2007 Type II Erectile dysfunction GERD (gastroesophageal reflux disease) H/O deep venous thrombosis HLD (hyperlipidemia) HTN (hypertension) Myocardial infarction ([facility]) 2021 ALLISON on CPAP Prostate cancer ([facility]) Status post placement of implantable loop recorder Stroke ([facility]) 04/2015 right sided weakness Patient Active Problem List Diagnosis Prostate cancer ([facility]) Cerebrovascular accident (CVA) ([facility]) History of diabetes mellitus History of DVT (deep vein thrombosis) History of hypertension History of ischemic left MCA stroke Hypercholesterolemia Hypertension Partial seizure ([facility]) Type 2 diabetes mellitus without complication, with long-term current use of insulin ([facility]) Osteoarthritis of knee Malignant neoplasm of prostate ([facility]) NSTEMI (non-ST elevated myocardial infarction) ([facility]) Chest pain BPH associated with nocturia Essential hypertension, benign Type 2 diabetes mellitus with hyperglycemia ([facility]) Vitamin D deficiency ALLISON on CPAP Acute anemia Chronic systolic heart failure ([facility]) 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 ? July Rankin PharmD, JIGARCP 04/17/24 2:13 PM [facility] [phone] [facility] 04-17-2024 Note Called to try to do [id number] and it was approved for a year. Medication must be filled at [facility]. Will ask Rx to be sent there and follow-up to make sure the patient receives it. July Rankin PharmD, JEFFREY 04/25/24 3:05 PM [facility] [phone] [facility] 04-17-2024 Note New script for Repat wilhelm received to treat E78.2, I25.10 mixed hyperlipidemia and Atherosclerotic heart disease. PA required? Yes Routed to [facility] for initial workup. Reddy Barnard, [facility] 04/17/24 at 11:40 AM [facility] 04-17-2024 Note Prior Authorization for Repatha has been denied on 04/20/24. Due to the Lipid panel on 03/15/24 being normal, Will fax appeal with LPA and ASCVD-related documents. Contacted prescriber and was told that due to the ASCVD history the goal for the LDL is actually <55, making him a candidate for the medication. Follow up on 04/26/24. Rajiv Lora, Elderly Sitter [facility], [id number] 04/24/24 10:31 AM [facility] 04-17-2024 Note PharmD Consult - PCS K9i [...] LDL, Apo-B, and Lp(a). Rx sent to [facility] to determine coverage and provide education to patient. Irasema White, PharmD, PGY1 Butting Saw Operator [facility] 04/17/24 [facility] 04-17-2024 Note PA was submitted via CMM, waiting on a determination. Antoinette Gan CPhT [facility] 04/17/24 3:38 PM [facility] 04-10-2024 Note [place] [facility] Heart and Vascular Center Asher Marte is a 68 y.o. year old male patient being seen for hospital follow up for NSTEMI s/p coronary angiogram on 03/14/24 with CAD and recommendations for medical management. He has past medical history of HTN, hyperlipidemia, seizure disorder, DVT, DM type 2, CVA (2018), chronic systolic HF, ALLISON. Hospital discharge summary [...] GERD, left MCA CVA in 2014, and SD in 2021. On 03/12/2024 he reported chest pain and chest tightness w/o radiation at home, and was transported to [facility] via ambulance. In the ambulance, his pain resolved with the administration of asprin and nitroglycerine. His troponin on arrival to [facility] ED was 104.3, so he was transferred to [facility] ED on the morning of 03/13/2024 for [...] Patient Active Problem List Diagnosis Prostate cancer ([facility]) Cerebrovascular accident (CVA) ([facility]) History of diabetes mellitus History of DVT (deep vein thrombosis) History of hypertension History of ischemic left MCA stroke Hypercholesterolemia Hypertension Partial seizure ([facility]) Type 2 diabetes mellitus without complication, with long-term current use of insulin ([facility]) Osteoarthritis of knee Malignant neoplasm of prostate ([facility]) NSTEMI (non-ST elevated myocardial infarction) ([facility]) Chest pain BPH associated with nocturia Essential hypertension, benign Type 2 diabetes mellitus with hyperglycemia ([facility]) Vitamin D deficiency ALLISON on CPAP Acute anemia Chronic systolic heart failure ([facility]) 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 [facility] 03-14-2024 Note Attestation signed by Arnoldo Killian [...] PCSK9 inhibitor as outpatient. Arnoldo Killian MD, [facility] Cardiology Progress Note Subjective Subjective: Eunice [...] Value Ventricular Rate 58 Atrial Rate 58 MO Interval 232 QRS DURATION 82 QT Interval 446 QTC CALCULATION(BAZETT) 437 P Homestead 62 R-Homestead 4 T Wave Homestead 49 Impression Sinus bradycardia with 1st degree A-V block Otherwise normal ECG When compared with ECG of 23-FEB-2023 14:05, MO interval has increased Criteria for Septal infarct are no longer Present T wave inversion no longer evident in Inferior lead Confirmed by Nina SCOTT, MICHI Rodriguez ([id number]) on 03/13/2024 1:44:00 PM Lab Results Component Value Date TROPONINI 0.03 03/13/2024 Complete Echo (TTE) w/wo Imaging Agent, Strain, 3D, Bubble Study Result Date: 03/13/2024 1 1 [facility] Heart Station [address] [place] [address] [phone] (fax) Echocardiogram-[facility] Name: EUNICE MARTE Study Date: 03/13/2024 09:36 AM B/P: 141 mmHg/87 mmHg HR: Date of : 1955 Location: [facility] Height: 73 in. Age: 68 year(s) Patient [...] - 4cm) Aorti (more content not included)... [facility] 03-14-2024 Note Hospital Medicine Discharge Summary Final [...] GERD, left MCA CVA in 2014, and SD in 2021. On 03/12/2024 he reported chest pain and chest tightness w/o radiation at home, and was transported to [facility] via ambulance. In the ambulance, his pain resolved with the administration of asprin and nitroglycerine. His troponin on arrival to [facility] ED was 104.3, so he was transferred to [facility] ED on the morning of 03/13/2024 for [...] Center 04/10/2024 9:15 AM Vivian Billy NP [facility] 08/07/2024 10:15 AM Phyllis Acosta MD [facility] 10/29/2024 10:00 AM Silvano Martinez [facility] Your medication list CHANGE how you take [...] At Discharge: Pen (more content not included)... [facility] 03-14-2024 Note Patient: Eunice bueno Procedure Information Date/Time: 03/14/24 1024 Procedure: Coronary angiography Location: [facility] HAND STRAIGHTENER 2 [facility] / [facility] V[facility]ULAR [facility] (Cath) Providers: Mata Burleson MD [...] Plan discussed with attending. Additional Equipment Requests [facility] 03-14-2024 Note Hospital Medicine Daily Progress Note - 03/14/2024 11:50 AM; Room: [facility]/3104- Admission: 03/13/2024 4:55 AM; Length of stay: 1 days THE HOSPITALIST TEAM PREFERS TO USE [employer] CHAT FOR COMMUNICATION 7AM-7PM. IF I DO NOT RESPOND WITHIN 15 MINUTES, PLEASE PAGE ME/CALL THROUGH THE COMPLAINT COORDINATOR. FROM 7PM-7AM, PLEASE PAGE [phone](COVR) Code Status: Full Code Barriers to Discharge: [...] GERD, left MCA CVA in 2014, and SD in 2021. On 03/12/2024 he reported chest pain and chest tightness w/o radiation at home, and was transported to [facility] via ambulance. In the ambulance, his pain resolved with the administration of asprin and nitroglycerine. 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 [...] recorder in place; (more content not included)... [facility] 03-13-2024 Note Case was discussed w ith the ZACH on 03/13/2024. I agree with the history, physical, assessment, and plan of care. I discussed the findings and therapeutic plan. I agree with the documentation, except for any updates below. Puja Montes De Oca MD [facility] 03-13-2024 Note 03/13/24 1351 Admission Assessment Questions [...] Status Interested Does the patient have a rehabilitation case coordinator assigned to them through their insurance? No Living Arrangement (Current/Prior to Hospitalization) Private residence;Home self care (lives w/family in one story home. No entry stairs) Does the patient have history of HHC or SNF? Yes (HHC in past does not recall name. Was in a rehab facility in [place]) Assistive Device Cane;Other (Comment) (CPAP) Patient's goal [...] to send link and activate MyChart? No [facility] 03-13-2024 Note Hospital Medicine History and Physical 03/13/2024 8:16 AM THE HOSPITALIST TEAM PREFERS TO USE [employer] CHAT FOR COMMUNICATION 7AM-7PM. IF I DO NOT RESPOND WITHIN 15 MINUTES, PLEASE PAGE ME/CALL THROUGH THE COMPLAINT COORDINATOR. FROM 7PM-7AM, PLEASE PAGE [phone](COVR) Chief Complaint No chief complaint on file. History of Present Illness Eunice Marte is an 68 y.o. male who came from [facility] with NSTEMI. Patient has past medical history of hyperlipidemia, hypertension, CKD 3, diabetes mellitus type 2 with long-term use of insulin, CVA in 2014, SD in 2021. Patient reports last night he began to have chest pain while watching TV, described as tightness in the middle of his chest, no radiation. Patient received nitro and aspirin en route to the [facility] which relieved his chest pain. His troponin [...] Date Noted NSTEMI (non-ST elevated myocardial infarction) ([facility]) 03/13/2024 Chest pain 03/13/2024 BPH associated with nocturia 08/05/2023 Essential hypertension, benign 08/05/2023 Type 2 diabetes mellitus with hyperglycemia ([facility]) 08/05/2023 Vitamin D deficiency 08/05/2023 History of diabetes mellitus 01/28/2023 History of DVT (deep vein thrombosis) 01/28/2023 History of hypertension 01/28/2023 History of ischemic left MCA stroke 01/28/2023 Partial seizure ([facility]) 01/28/2023 Prostate cancer ([facility]) 11/30/2022 Cerebrovascular accident (CVA) ([facility]) 06/05/2019 Hyperlipidemia 01/16/2014 Hypertension 01/16/2014 Type 2 diabetes mellitus without complication ([facility]) 01/16/2014 Osteoarthritis of knee 01/16/2014 Malignant neoplasm of prostate ([facility]) 05/30/2023 Assessment and Plan NSTEMI r/o ischemia [...] hyperglycemia SSI ACHS (more content not included)... [facility] 02-14-2024 Note aPATIENT: Eunice noble DATE OF : 1955 DATE OF VISIT: 02/14/24 Urology Clinic H&P PHYLLIS ACOSTA M.D., F.A.C.S. 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 Eunice Marte is a 68 y.o. -Indian male with history of HTN, HLD, Diabetes Mellitus Type 2, Stroke (04/2015 resulted in right sided weakness since has improved), CAD, SD in 2021 on ASA 81mg s/p implantable [...] urologist Milvia Daniel MD on 07/06/2022 at [facility] for a total of 24 cores (12 systematic cores x2 and 4 cores obtained from MARÍA ELENA #1). Pathology per [facility] review revealed acinar adenocarcinoma of the prostate, New Prague 3+4= 7; GG 2 involving 2/13 in [...] distant metastatic disease. Decipher prostate biopsy genomic equipment hire manager was obtained on prostate biopsy above, [...] swelling resolved with out intervention. Prior AUA-SI 1635, QoL 5 (unhappy) despite being on Myrbetriq [...] nodule, cT2a. I reviewed and discussed outside oracle agile plm consultant note, outside laboratory tests, outside imaging including MRI prostate and PSMA, pathology result of prostate biopsy, and decipher score. Mr. Marte has unfavorable intermediate risk prostate cancer by NCCN criteria since he has 2 intermediate risk factors (PSA 11.09 ng/mL and GG2 prostate cancer), however, decipher genomic equipment hire manager designate patient as a high risk [...] systolic function, EF (more content not included)... [facility] 10-31-2023 Note [facility] [place] [facility] Department of Radiation Oncology [address] [place] [address] RADIATION ONCOLOGY FOLLOW UP NOTE Date of [...] right sided weakness since has improved), CAD, SD in 2021 on ASA 81mg s/p implantable [...] bilaterally. LYMPH: No appreciable adenopathy. 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 PSYCH: Appropriate affect for the clinical situation. Insight and judgment not impaired. LAB (more content not included)... 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 Vitals WNL. Pt denies any dysuria, hematuria. Pt. Denies any diarrhea. Pt. Denies any pain. [facility] 09-20-2023 Note aPATIENT: Eunice noble DATE OF : 1955 DATE OF VISIT: 09/20/23 Urology Clinic H&P PHYLLIS ACOSTA M.D., F.A.C.S. 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 Eunice Marte is a 67 y.o. -Indian male with history of HTN, HLD, Diabetes Mellitus Type 2, Stroke (04/2015 resulted in right sided weakness since has improved), CAD, SD in 2021 on ASA 81mg s/p implantable [...] urologist Milvia Daniel MD on 07/06/2022 at [facility] for a total of 24 cores (12 systematic cores x2 and 4 cores obtained from MARÍA ELENA #1). Pathology per [facility] review revealed acinar adenocarcinoma [...] distant metastatic disease. Decipher prostate biopsy genomic equipment hire manager was obtained on prostate biopsy above, [...] being satisfied with his urination. Prior AUA-SI 16, QoL 5 (unhappy) despite being on Myrbetriq [...] nodule, cT2a. I reviewed and discussed outside oracle agile plm consultant note, outside laboratory tests, outside imaging including MRI prostate and PSMA, pathology result of prostate biopsy, and decipher score. Mr. Marte has unfavorable intermediate risk prostate cancer by NCCN criteria since he has 2 intermediate risk factors (PSA 11.09 ng/mL and GG2 prostate cancer), however, decipher genomic equipment hire manager designate patient as a high risk [...] regional wall motion (more content not included)... [facility] 02-02-2023 Hospital Discharge instructions Patient Education [...] under a microscope. This is called the [place] score and the total score can range from 6 10, indicating how likely it is that the cancer will spread (metastasize) to other parts of the body. The higher the score, the greater the likelihood that the cancer will spread. Gilbert 6 or lower: This indicates that the cancer cells look similar to normal prostate cells (well differentiated). New [place] 7: This indicates that the cancer cells [...] stress of having cancer. General instructions Take dqkk-uun-vtiwawv and prescription medicines only as told by your health care provider. If you have to go to the hospital, notify your cancer specialist (oncologist). Keep all follow-up visits. This is important. Where to find more information [employer] Society: www.cancer.org Indian Society of Clinical Oncology: www.cancer.net National Cancer [place]: www.cancer.gov Contact a health care provider if: [...] provider. Document Revised: 11/04/2021 Document Reviewed: 11/04/2021 [employer] Patient Education 2022 [employer]. Follow Up Care 11/03/2022 08:38:11 With:Dewey COTTO, ARIAN Alegria, URO Address: When: Unknown [facility] 11-03-2022 Hospital Discharge instructions Patient Education [...] who: Are older than age 65. Are -Indian. Are obese. Have a family history of [...] cells. Follow these instructions at home: Take tiuj-wkn-stdaomi and prescription medicines only as told by [...] 08/08/2006 Document Revised: 07/21/2018 Document Reviewed: 04/18/2017 [employer] Patient Education 2020 [employer] Follow Up Care 10/06/2022 08:46:11 With:Dewey COTTO, ARIAN Alegria, URO Address: When: Unknown [facility] 10-06-2022 Hospital Discharge instructions Patient Education [...] 07/25/2013 Document Revised: 03/28/2019 Document Reviewed: 03/28/2019 [employer] Patient Education 2020 [employer]. 10/06/2022 08:07:38 Brachytherapy for Prostate Cancer Brachytherapy [...] including vitamins, herbs, eye drops, creams, and dyfg-yds-aksmloy medicines. Any problems you or family members [...] 01/16/2007 Document Revised: 07/21/2018 Document Reviewed: 08/17/2017 [employer] Patient Education 2020 [employer]. 10/06/2022 08:07:36 Laparoscopic Prostatectomy Laparoscopic Prostatectomy Laparoscopic [...] including vitamins, herbs, eye drops, creams, and uono-vdr-liqidzd medicines. Any problems you or family members [...] 08/08/2006 Document Revised: 07/21/2018 Document Reviewed: 07/25/2017 [employer] Patient Education 2020 [employer]. 10/06/2022 07:50:11 Prostate Cancer Prostate Cancer The [...] who: Are older than age 65. Are -Indian. Are obese. Have a family history of [...] cells. Follow these instructions at home: Take jeqw-tfn-gfgqkha and prescription medicines only as told by [...] 08/08/2006 Document Revised: 07/21/2018 Document Reviewed: 04/18/2017 [employer] Patient Education 2019 [employer]. Follow Up Care 08/04/2022 10:29:21 With:Dewey COTTO, ARIAN Alegria, URO Address: When: Unknown [facility] 08-04-2022 Hospital Discharge instructions Patient Education 08/04/2022 [...] including vitamins, herbs, eye drops, creams, and ormg-awe-qyydnws medicines. Any problems you or family members [...] 01/16/2007 Document Revised: 07/21/2018 Document Reviewed: 08/17/2017 [employer] Patient Education 2020 [employer]. Follow Up Care 06/02/2022 10:42:40 With:Dewey COTTO, Milvia Lucia, URL, URO Address: When:1 month Comments:Discuss PSMA PET scan & treatment options [facility] 07-21-2022 Note OPERATIVE NOTE OPERATION DATE: [...] good condition. CC: Adilson Salazar M.D. [facility] 07-06-2022 Hospital Discharge instructions Patient Education 07/06/2022 [...] for your post-operative appointment in 1-2 weeks [phone] or [phone] Follow Up Care 06/02/2022 10:25:59 With:Milvia Palomo Address: [address] [place] [address]- [phone] Business (1) [address] [address] [phone] Business (1) When: Unknown Comments:Office to followup appointment in 2 weeks for pathology review [facility] 07-06-2022 Evaluation + Plan note Extrac shelby from: Title:Post-anesthesia - General Author:Scout Dumont DO Date:07/06/22 Plan Transfer/ Discharge: Condition stable. Extracted from: Title:EU - MRI fusion transp erineal prostate biopsy Author:Milvia Palomo MD Date:07/06/22 Impression and Plan Diagnosis Elevated PSA (JSV15-VC R97.20, Discharge, Medical). Diagnosis Elevated PSA (LYD43-TA R97.20, Discharge, Medical). Counseled: Patient, Family. Extracted from: Title:Pre-anesthesia - Adult Author:Scout Lamas Jr., DO Date:07/06/22 Plan Indian Society of Anesthesiologists (ASA) physical status classification: Class III. Anesthetic Preoperative Plan Anesthesia: Monitored anesthesia care. Anesthetic plan, risks, benefits, and alternatives discussed with the patient and/or family. Patient verbalized understanding. Adverse reactions, complications, and alternatives discujssed. Consent signed and on chart.. Future Appointments Appointment Date:07/21/2022 09:30:00 AM Scheduled Provider:Milvia Palomo MD Location:[facility] Appointment Type:URO Office Visit Appointment Date:10/12/2022 10:30:00 AM Scheduled Provider:Asim Tanner Jr., MD Location:[facility] Appointment Type:URO Office Visit [facility]11-14-2022 Note [id number]:127[facility] 06-25-2022 NoteChief Complaint consultation for LLQ [...] mL, NEB, BID c (more content not included)...[facility] Comment: Electronically Signed By: BASIL COTTO, Curtis Monzon\Date and Time Signed: 06/25/22 15:55 [id number] Note [id number]:127[facility] 06-02-2022 Hospital Discharge instructions Patient Education [...] Follow these instructions at home: Medicines Take wjel-bsq-pexvfaw and prescription medicines only as told by [...] 08/05/2001 Document Revised: 07/21/2018 Document Reviewed: 08/24/2017 [employer] Patient Education 2020 [employer]. Follow Up Care 04/21/2022 12:43:56 With:Dewey COTTO, ARIAN Alegria, URO Address: [address] [place] [address] [phone] When: Unknown [facility] 08-31-2022 Hospital Discharge instructions Patient Education [...] have oneof these risk factors: ?Being of -Indian descent. ?Having a family history of prostate [...] you: Are older than age 55. Are -Indian. Have a father, brother, or uncle who [...] 05/19/2018 Document Revised: 07/21/2018 Document Reviewed: 05/19/2018 [employer] Patient Education 2020 [employer]. Follow Up Care 03/08/2022 11:37:35 With:Milvia Palomo MD, UR, URO Address: When: Unknown [facility] evaluation + Plan note Future Appointments Appointment Date:05/12/2022 10:45:00 AM Scheduled Provider:Milvia Palomo MD Location:[facility] Appointment Type:URO Office Visit Appointment Date:10/12/2022 10:30:00 AM Scheduled Provider:Asim Tanner Jr., MD Location:[facility] Appointment Type:URO Office Visit [facility] evaluation + Plan note Future Appointments Appointment Date:06/29/2022 03:30:00 PM Scheduled Provider: Location:[facility] Appointment Type:Surgical PAT FT Appointment Date:07/06/2022 01:30:00 PM Scheduled Provider: Location:[facility] Appointment Type:Surgery FT Appointment Date:07/21/2022 09:30:00 AM Scheduled Provider:Milvia Palomo MD Location:[facility] Appointment Type:URO Office Visit Appointment Date:10/12/2022 10:30:00 AM Scheduled Provider:Asim Tanner Jr., MD Location:[facility] Appointment Type:URO Office Visit [facility] evaluation + Plan note Future Appointments Appointment Date:06/29/2022 03:00:00 PM Scheduled Provider: Location:[facility] Appointment Type:Surgery PAT COVID Testing Appointment Date:06/29/2022 03:30:00 PM Scheduled Provider: Location:[facility] Appointment Type:Surgical PAT FT Appointment Date:07/06/2022 01:30:00 PM Scheduled Provider: Location:[facility] Appointment Type:Surgery FT Appointment Date:07/21/2022 09:30:00 AM Scheduled Provider:Milvia Palomo MD Location:[facility] Appointment Type:URO Office Visit Appointment Date:10/12/2022 10:30:00 AM Scheduled Provider:Asim Tanner Jr., MD Location:[facility] Appointment Type:URO Office Visit General Surgery Gill Evaluation + Plan note Future Appointments Appointment Date:07/06/2022 01:30:00 PM Scheduled Provider: Location:[facility] Appointment Type:Surgery FT Appointment Date:07/21/2022 09:30:00 AM Scheduled Provider:Milvia Palomo MD Location:[facility] Appointment Type:URO Office Visit Appointment Date:10/12/2022 10:30:00 AM Scheduled Provider:Asim Tanner Jr., MD Location:[facility] Future Appointments Appointment Date:09/15/2022 10:30:00 AM Scheduled Provider:Milvia Palomo MD Location:[facility] Appointment Type:URO Office Visit [facility] evaluation + Plan note Future Appointments Appointment Date:10/06/2022 07:45:00 AM Scheduled Provider:Milvia Palomo MD Location:[facility] Appointment Type:[facility] Future Appointments Appointment Date:11/03/2022 10:10:00 AM Scheduled Provider:Milvia Palomo MD Location:[facility] Appointment Type:URO Office Visit Diagnostic Tests Pending * PSA Free & Total 10/06/22 [facility] evaluation + Plan note Future Appointments Appointment Date:02/02/2023 10:15:00 AM Scheduled Provider:Dewey COTTO, Milvia Lucia Location:[facility] Appointment Type:URO Office Visit [facility] evaluation noteNo assessment information available 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 (Z79.4) Prostatic cancer (CMS/HCC) Malignant neoplasm of prostate Type 2 diabetes mellitus with hyperglycemia, with long-term current use of insulin (CMS/HCC)- Primary Essential hypertension, benign (CMS/HCC) Essential hypertension, benign Gastroesophageal reflux disease without esophagitis Esophageal reflux Prostatic cancer (CMS/HCC) Malignant neoplasm of prostate Coronary artery disease involving navajo coronary artery of navajo heart without angina pectoris (CMS/HCC)- Primary Type 2 diabetes mellitus with hyperglycemia, with long-term current use of insulin (CMS/HCC) Essential hypertension, benign (CMS/HCC) Essential hypertension, benign Heart failure with improved ejection fraction (HFimpEF) (CMS/HCC)- Primary Type 2 diabetes mellitus with hyperglycemia, with long-term current use of insulin (CMS/HCC) Coronary artery disease involving navajo coronary artery of navajo heart without angina pectoris (CMS/HCC) Essential hypertension, benign (CMS/HCC) Essential hypertension, benign Bilateral impacted cerumen Impacted cerumen Single subsegmental pulmonary embolism without acute cor pulmonale (CMS/HCC)- Primary Pneumonia of right lower lobe due to infectious organism NSTEMI (non-ST elevated myocardial infarction) (CMS/HCC) Acute myocardial infarction, subendocardial infarction, episode of care unspecified Coronary artery disease involving navajo coronary artery of navajo heart without angina pectoris ([facility]) Type 2 diabetes mellitus with hyperglycemia, with long-term current use of insulin ([facility]) Type 2 diabetes mellitus with hyperglycemia, with long-term current use of insulin ([facility])- Primary Essential hypertension, benign ([facility]) Essential hypertension, benign Heart failure with improved ejection fraction (HFimpEF) ([facility]) Coronary artery disease involving navajo coronary artery of navajo heart without angina pectoris ([facility]) documented in this encounter [facility] HealthcareEvaluation note* Diagnosis Heart failure with improved ejection fraction (HFimpEF) ([facility])- Primary Type 2 diabetes mellitus with hyperglycemia, with long-term current use of insulin ([facility]) Coronary artery disease involving navajo coronary artery of navajo heart without angina pectoris ([facility]) Essential hypertension, benign ([facility]) Essential hypertension, benign Bilateral impacted cerumen Impacted cerumen documented in this encounter [facility] HealthcareEvaluation note* Diagnosis Single subsegmental pulmonary embolism without acute cor pulmonale ([facility])- Primary Pneumonia of right lower lobe due to infectious organism NSTEMI (non-ST elevated myocardial infarction) ([facility]) Acute myocardial infarction, subendocardial infarction, episode of care unspecified Coronary artery disease involving navajo coronary artery of navajo heart without angina pectoris ([facility]) Type 2 diabetes mellitus with hyperglycemia, with long-term current use of insulin ([facility]) [facility] N[facility] No data available for this section [facility] Hospital Discharge instructions No data available for this section General Surgery Gill Progress note No data available for this section [facility] Discharge Instructions * Discharge Instr - [...] Extended Emergency Contact Information [facility] Relation: Spouse Climatology Teacher needed? No Past Surgical History: No past surgical history on file. Immunization History: There is no immunization history on file for this patient. Active Problems: Patient Active Problem List Diagnosis Code Cerebrovascular accident (CVA) ([facility]) I63.9 Acute left hemiparesis ([facility]) G81.94 History of ischemic left MCA stroke [...] (99.8 kg) Mental Status: {IP PT MENTAL STATUS:36715} IV Access: { JOSIE IV ACCESS:321019184} Nursing Mobility/ADLs: Walking {CHP DME ADLs:685914289} Transfer {CHP DME ADLs:422699940} Bathing {CHP DME ADLs:982050041} Dressing {CHP DME ADLs:594067247} Toileting {CHP DME ADLs:523951706} Feeding {CHP DME ADLs:314882002} Cotton Baler {CHP DME ADLs:785447838} Med Delivery { JOSIE MED Delivery:433165378} Wound Care Documentation and Therapy: Elimination: Continence: Bowel: {YES / NO:} Bladder: {YES / NO:} Urinary Catheter: {Urinary Catheter:141576983} Colostomy/Ileostomy/Ileal Conduit: {YES / NO:} Date of Last BM: Intake/Output Summary (Last 24 hours) at 06/08/2019 1738 Last data filed at 06/08/2019 1600 Gross per 24 hour Intake Output 950 ml Net -950 ml I/O last 3 completed shifts: In: - Out: 950 [Urine:950] Safety Concerns: { JOSIE Safety Concerns:747953947} Impairments/Disabilities: { JOSIE Impairments/Disabilities:812908364} Nutrition Therapy: Current Nutrition Therapy: { JOSIE Diet List:235319340} Routes of Feeding: {[facility] DME Other Feedings:091577424} Liquids: {[facility] liquid thickness:70649} Daily Fluid Restriction: {[facility] DME Yes amt example:783928721} Last Modified Barium Swallow with Video (Video Swallowing Test): {Done Not Done Date:} Treatments at the Time of Hospital Discharge: Respiratory Treatments: Oxygen Therapy: {Therapy; copd oxygen:38581} Ventilator: {[facility] Vent List:108785438} Rehab Therapies: {THERAPEUTIC INTERVENTION:2828753526} Weight Bearing Status/Restrictions: {[facility] Weight Bearin} Other Medical Equipment (for information only, NOT a DME order): {EQUIPMENT:438701815} Other Treatments: Patient's personal belongings (please select all that are sent with patient): {[facility] DME Belongings:414814977} RN SIGNATURE: {Esignature:377726706} CASE MANAGEMENT/SOCIAL WORK SECTION Inpatient Status Date: 06/05/2019 Readmission Risk Assessment Score: Readmission Risk Risk of Unplanned Readmission: 13 Discharging to Facility/ Agency Name: [facility] Address: Fax: Dialysis Facility (if applicable) Name: Address: Dialysis Schedule: Phone: Fax: Day Guard/Bss Solution Architect signature: at2:35 PM PHYSICIAN SECTION Prognosis: Good [...] PM EDT CLINICAL PHARMACY NOTE: MEDS TO [facility] Select Patient?: No Total # of [...] 06/08/2019 2:39 PM EDT Physical Therapy Facility/Department: [address] Daily Treatment Note NAME: Eunice Marte [...] Type 2 Diabetes _x__ Be safe with [place] teaching sheet / [facility] Disposal of Household Generated Sharps _x__ Type 2 Diabetes and Adding Insulin fold out with survival skills Contact number provided. Patient stated willing to follow up for outpatient DMED / work with BARTOLO chaudhary meal planing. Refer to Patient Education activity for more details. LUCRECIA CADE RN CDE * Keysha Urena, BROWNELL OPERATOR - 06/08/2019 11:58 AM EDT Speech Language Pathology Speech Language Pathology [facility] Cognitive Treatment Note Date: 06/08/2019 Patient s Name: Eunice Marte Diagnosis: Patient Active Problem List Diagnosis Code Cerebrovascular accident (CVA) (HCC) I63.9 Acute left hemiparesis (HCC) G81.94 History of ischemic left MCA stroke [...] (100%) withmod verbal cues. State the Category ([place]): Pt stated 1/10 (10%) independently, increased to [...] Treatment completed by: Completed by: Erin Andrews, Back Shoe Operator Clinician Cosigned By: Keysha Urena M.S.CCC/BROWNELL OPERATOR * Kosta Macedo PTA - 06/08/2019 10:31 AM EDT DATE: 06/08/2019 NAME: Eunice Marte : 1955 Patient not seen this date for Physical Therapy due to: [] Blood transfusion in progress [] Hemodialysis [] Patient Declined [] Spine Precautions [] Strict Bedrest [x] Surgery/ Procedure VL DUP LOWER EXTREMITY VENOUS BILATERAL (Order #[id number]) on 06/08/19 [] Testing [] Other [] [...] years ago) who came to ED at [facility] after having a presentation of acute onset of left- sided weakness that began around 5 PM on June 05, 2019. Patient refers that he was around his house around that area he was feeling weak but then noticed that he was slurring the speech, have a left-sided facial droop, left- sided hemiparesis. At the [facility] NIH was calculated at 8 and decision was to give TPA. Patient was life flighted to [place] and was given hydralazine to control his [...] BID insulin lispro 0-18 Units Subcutaneous TID insulin lispro 0-9 Units Subcutaneous Nightly lisinopril-hydrochlorothiazide [...] LABS: DATA CBC: Recent Labs 06/06/19 0901 06/07/196 06/08/19 0041 WBC 7.3 7.4 7.1 HGB [...] were no complications encountered. Cardiovascular Diseases [facility] CONSTITUTIONAL: negative for fatigue and malaise [...] Neurology Resident PGY-3 Neuro Critical Care Pager [phone] 06/08/2019 6:04 AM Associated attestation - Omer [...] signs taken. Pt sleepy, but easy to arouse.Manufacturing Manager called to let her know procedure was done. 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/ Procedure--optical laboratory manager this afternoon [] Testing [] Other [] PT being discontinued at this time. Patient independent. No further needs. [] PT being discontinued at this time as the patient has been transferred to palliative care. No further needs. SHERRILL IVAN, SHORT GOODS DRIER * Tracey Rahman RN - 06/07/2019 1:53 PM EDT Patient arrived from in-house bed, consent signed, all questions answered. Pt ready for procedure. Call light to reach with side rails up 2 of 2. Lt mid and upper chest clipped. No one at bedside with patient. Prep completed to upper & mid chest area with 2% Chlorhexidine Gluconate * Frances Schulz, BROWNELL OPERATOR - 06/07/2019 11:43 AM EDT Speech Language Pathology Speech Language Pathology [facility] Speech / Cognitive Treatment Note Date: 06/07/2019 Patient s Name: Eunice Marte Diagnosis: Patient Active Problem List Diagnosis Code Cerebrovascular accident (CVA) ([facility]) I63.9 Acute left hemiparesis ([facility]) G81.94 History of ischemic left MCA stroke Z86.73 History of diabetes mellitus Z86.39 History of hypertension Z86.79 Pain: denies Cognitive Treatment Treatment time: 7855-2075 Subjective: [] Alert [] Cooperative [] Confused [...] x2 verbal repetitions. Organization: State the Category, [place]: Pt provided three items and instructed to state the category. Pt completed activity with 60% (3/5) accuracy independently, increased to 100% (5/5) with mod-max verbal cues and 1-2x verbal repetitions. Add to the Category, [place]: Pt instructed to name three additional items [...] days. Treatment completed by: Frances Schulz M.S. CCC-BROWNELL OPERATOR * Spike Worthy, DO - 06/07/2019 8:02 AM EDT Daily Progress Note Neuro Critical Care Patient Name: Eunice Marte Patient : 1955 Room/Bed: [address] [place] [address] CHIEF COMPLAINT: Complaining of left facial droop, left-sided hemiparesis, slurred speech INTERVAL HISTORY: Admission (06/05/2019) Case of a 63 y.o. male patient with PMH of HTN, Diabetes, Stroke (4 years ago) who came to ED at [facility] after having a presentation of acute onset of left- sided weakness that began around 5 PM on June 05, 2019. Patient refers that he was around his house around that area he was feeling weak but then noticed that he was slurring the speech, have a left-sided facial droop, left- sided hemiparesis. At the [facility] NIH was calculated at 8 and decision was to give TPA. Patient was life flighted to [place] and was given hydralazine to control his [...] 2218 (!) 155/79 98 20 91 % 06/06/192202 (!) 167/89 99 21 92 % 06/06/19 [...] a licensed caregiver. Case discussed with Dr. Zaidot at 10:50 p.m.. ROS: CONSTITUTIONAL: negative for [...] Neurology Resident PGY-2 Neuro Critical Care Pager [phone] 06/07/2019 8:02 AM Associated attestation - Omer Zambrano MD - 06/07/2019 4:13 PM EDT NCC 63-year-old patient admitted to neuro ICU status post IV TPA administration for acute left hemiparesis Hx of old left cerebral infarction DM, HTN, HLD MRI brain with diffusion restriction, acute stroke in R jeffrey ventricular and BG area CTA showed no acute LVO, multifocal SALES OPERATIONS SPECIALIST stenotic area seen Neuro deficits of left [...] spent 45 minutes excluding procedural time * Good Huangw, OT - 06/06/2019 12:38 PM EDT Occupational [...] Ambulation Assistance: Independent Transfer Assistance: Independent Active Cuprous Chloride Operator: Yes Mode of Transportation: Car Occupation: Retired [...] Management Training, Self-Care / ADL, Neuromuscular Re-education -[facility] Inpatient Daily Activity Raw Score: 20 (06/06/19 1233) [facility] Inpatient ADL T-Scale Score : 42.03 (06/06/19 1233) ADL Inpatient CMS 0-100% Score: 38.32 (06/06/19 1233) ADL Inpatient [facility] G-Code Modifier : CJ (06/06/19 1233) Goals [...] In 1055 Time Out 1130 Minutes 35 JAY Zimmerman/L * Nancy Aguila, PT - 06/06/2019 11:52 AM EDT Physical Therapy Facility/Department: [address] Initial Assessment NAME: Eunice Marte : 1955 Chief Complaint Patient presents with Cerebrovascular Accident The patient is a 63 y.o. male presented with acute onset of L sided weakness... He has had TIAs in the past, and states that this felt somewhat similar. 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 Date of Eval: [...] felt somewhat similar. He was brought to [place] ED where NIH was calculated to be [...] address noted deficits. Education provided. Recommendations: Requires BROWNELL OPERATOR Intervention: Yes Duration/Frequency of Treatment: 3-5 x [...] 0911 Minutes 13 Completed by: Erin Andrews, Back Shoe Operator Clinician Cosigned By: Keysha Urena M.S.CCC/BROWNELL OPERATOR 06/06/2019 10:16 AM * Suellen Allen RN [...] Name: Eunice Marte Patient : 1955 Room/Bed: [address] [place] [address] CHIEF COMPLAINT: Complaining of left facial droop, left-sided hemiparesis, slurred speech INTERVAL HISTORY: Admission (06/05/2019) Case of a 63 y.o. male patient with PMH of HTN, Diabetes, Stroke (4 years ago) who came to ED at [facility] after having a presentation of acute onset of left- sided weakness that began around 5 PM on June 05, 2019. Patient refers that he was around his house around that area he was feeling weak but then noticed that he was slurring the speech, have a left-sided facial droop, left- sided hemiparesis. At the [facility] NIH was calculated at 8 and decision was to give TPA. Patient was life flighted to [place] and was given hydralazine to control his [...] (!) 166/93 81 15 95 % 06/05/19 213 (!) 152/80 78 18 95 % 06/05/19 [...] Neurology Resident PGY-3 Neuro Critical Care Pager [phone] 06/06/2019 5:57 AM Associated attestation - Omer Zambrano MD - 06/06/2019 5:24 PM EDT Patient admitted overnight, staffed this am. H & P from overnight addended. M Sudheer Zambrano MD * Gonzales Camarena MD - 06/05/2019 8:42 PM EDT [facility] [facility] Flight Physician Pt Name:Eunice Marte Birthdate 1955 Date of evaluation: 06/05/19 PCP: Adilson Salazar MD REASON FOR FLIGHT Patient was transported from [facility] to [facility] due to stroke. Flight was indicated for further care at [facility] HISTORY OF PRESENT ILLNESS Eunice Marte is a 63 y.o. male who acute onset left-sided upper and lower extremity weakness while walking in his yard. Symptoms occurred at approximately 5 PM this afternoon. 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 Advance Directives and Living Will Power of Post Hole Digging Machine Operator Latest Code Status on File Code Status [...] Contact Diagnoses Stroke determined by clinical assessment ([facility]) Oscar Harp MD [address] [place] [address] [facility] Reason Comments Follow-up 3 m Fatigue No energy Reason Comments Follow-up Edema Hands and feet Shortness of Breath Winded easily Reason Comments Follow-up [facility] f/u (unrecognized sect ion and content) No Status Records FoundNo Status Records FoundNo Status Records FoundNo Status Records FoundNo Status Records FoundNo Status Records Found INFORMATION SOURCE (unrecogn ized section and content) DATE CREATED AUTHOR 06/19/2019 [facility] DATE CREATED AUTHOR AUTHOR'S ORGANIZ ATION 11/21/2022 [facility] DATE CREATED AUTHOR AUTHOR'S ORGANIZ ATION [facility]/29/2023 [facility] DATE CREATED AUTHOR AUTHOR'S ORGANIZ ATION 05/12/2024 [facility] DATE CREATED AUTHOR AUTHOR'S ORGANIZ ATION 07/04/2024 [facility] DATE CREATED AUTHOR AUTHOR'S ORGANIZ ATION 09/06/2024 [facility] Care Team (unrecognized sect ion and content) Team Status: Inactive Member Role Status Dates Adilson Salazar MD Primary Care Provider Active Milvia Palomo MD Attending Provider Active Team Status: Active Member Role Status Dates Adilson Salazar MD Primary Care Provider Active Bathing Suit Maker Relationship Specialty Start Date End Date Adilson Salazar MD PCP - General Family Medicine 05/25/23 Bathing Suit Maker Relationship Specialty Start Date End Date Adilson Salazar MD PCP - General Family Medicine 05/25/23 Bathing Suit Maker Relationship Specialty Start Date End Date Adilson Salazar MD [address] [place] [phone] PCP - General Family Medicine 03/28/24 Bathing Suit Maker Relationship Specialty Start Date End Date Adilson Salazar MD [address] [place] [phone] PCP - General Family Medicine 03/28/24 Bathing Suit Maker Relationship Specialty Start Date End Date Adilson Salazar MD [address] [place] [phone] PCP - General Family Medicine 03/28/24 Bathing Suit Maker Relationship Specialty Start Date End Date Adilson Salazar MD [address] [place] [phone] PCP - General Family Medicine 03/28/24 Bathing Suit Maker Relationship Specialty Start Date End Date Adilson Salazar MD [address] [place] [phone] PCP - General Family Medicine 03/28/24 Bathing Suit Maker Relationship Specialty Start Date End Date Adilson Salazar MD [address] [place] [address] PCP - General Family Medicine 03/28/24 Bathing Suit Maker Relationship Specialty Start Date End Date Adilson Salazar MD [address] [place] [address] PCP - General Family Medicine 03/28/24 Goals (unrecognized section and content) Goals may [...] BE BASED ON THE PRIMARY CLINICAL RECORDS. [employer] provides no warranty or guarantee of the accuracy or completeness of information in this document.
--- NOTE | 2024-09-30 22:34 | XR_ITS ---
[facility] [place] [id number] Patient Name: EUNICE FREEMAN MRN: [id number] date: 1955 Sex: M Assigned Patient Location: ED.MAIN Current Patient Location: ER Accession/Order Number: [id number] Exam Date: 09/30/2024 23:15 Report Date: 09/30/2024 23:50 At the request of: DASHAWN SAAB Procedure: XR chest 1V EXAMINATION: XR chest 1V, , 09/30/2024 8:15 PM PST INDICATION: Fever HISTORY: Ordering Provider Reason for Exam: Fever Technologist Note: Additional: COMPARISON: None. TECHNIQUE: Chest x-ray: One view. FINDINGS: No pneumothorax, pleural effusion or focal airspace consolidation. Heart is normal in size. No acute osseous abnormality is seen. XR/XR chest 1V IMPRESSION: No acute cardiopulmonary process. Electronically authenticated by: CHER GOLDEN Date: 09/30/2024 23:50
--- NOTE | 2024-09-30 22:34 | ECG_ITS ---
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
--- NOTE | 2024-09-30 22:34 | ED.GENADUL1 ---
HPI HPI - General Adult General Chief complaint: Urogenital-Male Stated complaint: Back Pain Time Seen by Provider: 09/30/24 22:30 Source: other Source information: EMS Mode of arrival: ambulance History of Present Illness HPI narrative: 68-year-old male presents to the emergency department by squad for lower back pain. He states it started this afternoon and there was no trauma. The paramedics reported that his was concerned about a UTI. They reported that he had a fever when they checked his temperature. They also reported that he was a little bit confused. He does not have chest pain or shortness of breath or cough and does not complain of abdominal pain. Related Data Home Medications ?Medication ?Instructions ?Recorded ?Confirmed amlodipine 10 mg tablet 10 mg PO DAILY 07/16/23 05/09/24 cholecalciferol (vitamin D3) 50 50 mcg PO DAILY 07/16/23 05/09/24 mcg (2,000 unit) tablet ezetimibe 10 mg tablet 10 mg PO QAM 07/16/23 05/09/24 glipizide 10 mg tablet 10 mg PO BIDWM 07/16/23 05/09/24 lisinopril 20 1 tab PO BID 07/16/23 05/09/24 mg-hydrochlorothiazide 12.5 mg tablet metformin 500 mg tablet,extended 500 mg PO BID 07/16/23 05/09/24 release 24 hr montelukast 10 mg tablet 10 mg PO .QHS 07/16/23 05/09/24 pioglitazone 30 mg tablet 30 mg PO DAILY 07/16/23 05/09/24 tamsulosin 0.4 mg capsule 0.4 mg PO DAILY 07/16/23 05/09/24 aspirin 81 mg capsule 81 mg PO DAILY 03/12/24 05/09/24 insulin glargine-yfgn 100 unit/mL 40 unit subcut .QHS 03/12/24 05/09/24 (3 mL) subcutaneous pen (Semglee (insulin glargine-yfgn) Pen) calcium 600 mg (as 1 tab PO DAILY 05/09/24 05/09/24 carbonate)-vitamin D3 10 mcg (400 unit) tablet evolocumab 140 mg/mL subcutaneous 140 mg subcut Q14D 05/09/24 05/10/24 pen injector (Repjessenia SureKristianick) rosuvastatin 40 mg tablet 40 mg PO .QHS 05/09/24 05/09/24 Previous Rx's ?Medication ?Instructions ?Recorded apixaban 5 mg tablet (Eliquis) 5 mg PO BID 30 days #72 tabs 05/11/24 carvedilol 6.25 mg tablet 6.25 mg PO BID 30 days #60 tabs 05/11/24 dextromethorphan-guaifenesin 10 10 ml PO Q6H PRN Cough 5 days #200 05/11/24 mg-100 mg/5 mL oral syrup mL levofloxacin 750 mg tablet 750 mg PO DAILY 5 days #5 tabs 05/11/24 Allergies Allergy/AdvReac Type Severity Reaction Status Date / Time Penicillins Allergy Severe Rash Verified 09/30/24 22:33 Opioid HPI Opioid Management Most Recent Opioid Data: Last Pain Scale 6 05/09/24 15:34 05/09/24 Last ORT Total Score 0 05/09/24 14:50 05/09/24 Last ORT Risk Category Low Risk 05/09/24 14:50 05/09/24 Review of Systems ROS Narrative A ten point review of systems is negative except as noted above. [facility] Medical History (Updated 10/01/24 @ 00:11 by Darrion Prado MD) History of non-ST elevation myocardial infarction (NSTEMI) ?I25.2 - Old myocardial infarction (ICD-10) Multi-infarct dementia ?F01.50 - Vascular dementia, unspecified severity, without behavioral disturbance, psychotic disturbance, mood disturbance, and anxiety (ICD-10) Cerebrovascular disease ?I67.9 - Cerebrovascular disease, unspecified (ICD-10) Type 2 diabetes mellitus with hyperglycemia ?E11.65 - Type 2 diabetes mellitus with hyperglycemia (ICD-10) Implantable loop recorder present ?Z95.818 - Presence of other cardiac implants and grafts (ICD-10) Sleep apnea treated with continuous positive airway pressure (CPAP) ?G47.30 - Sleep apnea, unspecified (ICD-10) TIA (transient ischemic attack) ?G45.9 - Transient cerebral ischemic attack, unspecified (ICD-10) High cholesterol ?E78.00 - Pure hypercholesterolemia, unspecified (ICD-10) Diabetes ?E11.9 - Type 2 diabetes mellitus without complications (ICD-10) Hypertension ?I10 - Essential (primary) hypertension (ICD-10) Prostate CA ?C61 - Malignant neoplasm of prostate (ICD-10) Surgical History History of shoulder surgery ?Z98.890 - Other specified postprocedural states (ICD-10) H/O left knee surgery ?Z98.890 - Other specified postprocedural states (ICD-10) History of back surgery ?Z98.890 - Other specified postprocedural states (ICD-10) Family History Mother Family history of diabetes mellitus Family history of myocardial infarction Sister Family history of hypertension Social History (Updated 05/09/24 @ 15:00 by Joan Trinidad RN) Smoking status: Former smoker Highest level of school completed/degree received: decline to answer Little interest or pleasure in doing things: not at all Feeling down, depressed, or hopeless: not at all Do you think of yourself as: decline to answer Gender Identity: decline to answer Exam Narrative Exam Narrative: Nurses note and vital signs reviewed and patient is not hypoxic. General: The patient appears well and in no apparent distress. Patient is resting comfortably on cart. Skin: Warm, dry, no pallor noted. There is no rash noted. Head: Normocephalic, atraumatic Eye: Normal conjunctiva, no drainage Ears, Nose, Mouth, and Throat: oral mucosa is moist. Nares patent. Cardiovascular: Regular Rate and Rhythm, mildly tachycardic Respiratory: Patient is in no distress, no accessory muscle use, lungs are clear to auscultation, no wheezing, rales or rhonchi Back: non-tender GI: Soft and nontender Musculoskeletal: The patient has no evidence of calf tenderness, no pitting edema, symmetrical pulses noted bilaterally Neurological: Awake and alert and oriented to self and place and reason but he does not know the year. Psychiatric: Cooperative Constitutional Vital Signs, click to edit/add: Last Vital Signs Temp 102.9 F H 09/30/24 23:00 Pulse 107 H 09/30/24 22:28 Resp 18 09/30/24 22:28 BP 184/84 H 09/30/24 22:28 Pulse Ox 93 L 09/30/24 23:00 O2 Del Method Room Air 09/30/24 23:00 Course Vital Signs Vital signs: Vital Signs Temperature 102.9 F H 09/30/24 22:28 Pulse Rate 107 H 09/30/24 22:28 Respiratory Rate 18 09/30/24 22:28 Blood Pressure 184/84 H 09/30/24 22:28 Pulse Oximetry 93 L 09/30/24 22:28 Oxygen Delivery Method Room Air 09/30/24 22:28 Temperature 102.9 F H 09/30/24 23:00 Pulse Rate 107 H 09/30/24 22:28 Respiratory Rate 18 09/30/24 22:28 Blood Pressure 184/84 H 09/30/24 22:28 Pulse Oximetry 93 L 09/30/24 23:00 Oxygen Delivery Method Room Air 09/30/24 23:00 Medical Decision Making MDM Narrative Medical decision making narrative: The patient has a fever but the source is unknown. His chest x-ray is negative and he does not have a UTI. COVID and influenza are negative and blood cultures were obtained. His vital signs do not show hypotension. He was given rectal Tylenol. He continues did not know what year it is but I am not sure what his baseline is as he has no family here with him and he had a stroke previously. He will be admitted for observation. Treatment diagnosis and disposition were discussed thoroughly. Differential Diagnosis Differential Diagnosis: Pneumonia, UTI, COVID, influenza, viral illness Lab Data Lab results reviewed: Yes I reviewed the patient's lab results Labs: Lab Results 09/30/24 09/30/24 09/30/24 Range/Units 22:45 22:50 23:02 WBC 8.6 (4.0-11.0) 10^3/uL RBC 5.20 (4.70-6.10) 10^6/uL Hgb 14.4 (14.0-18.0) g/dL Hct 43.8 (42.0-54.0) % MCV 84.2 (80.0-94.0) fL MCH 27.7 (25.9-34.0) pg MCHC 32.9 (29.9-35.2) g/dL RDW 13.6 (11.0-15.0) % Plt Count 154 (150-450) 10^3/uL MPV 11.0 (9.5-13.5) fL Seg Neuts % (Manual) 90.0 H (43.0-75.0) Lymphocytes % (Manual) 4.0 L (20.5-60.0) % Atypical Lymphs % (Man) 2.0 % Monocytes % (Manual) 1.0 L (1.7-12.0) % Eosinophils % (Manual) 3.0 (0.9-7.0) % Basophils % (Manual) 1.0 (0.2-2.0) % Neutrophils # (Manual) 7.74 H (1.4-6.5) 10^3/uL Lymphocytes # (Manual) 0.34 L (1.20-3.80) 10^3/uL Abs Atypical Lymphs Man 0.17 Monocytes # (Manual) 0.08 L (0.30-0.80) 10^3/uL Eosinophils # (Manual) 0.25 (0.00-0.70) 10^3/uL Basophils # (Manual) 0.08 (0.00-0.10) 10^3/uL Tear Drop Cells 2+ Sodium 138 (136-145) mmol/L Potassium 3.9 (3.5-5.1) mmol/L Chloride 101 (98-107) mmol/L Carbon Dioxide 25.4 (21.0-32.0) mmol/L Anion Gap 15.5 BUN 9.0 (7.0-18.0) mg/dL Creatinine 1.15 (0.70-1.30) mg/dL Est GFR ( Amer) >60 (>=60 mL/min/1.73m^2) Est GFR (Non-Af Amer) >60 (>=60 mL/min/1.73m^2) BUN/Creatinine Ratio 7.8 Glucose 263 H (74-106) mg/dL Lactate 1.5 (0.4-2.0) mmol/L Calcium 9.0 (8.5-10.1) mg/dL Urine Color Yellow (YELLOW) Urine Clarity Clear (CLEAR) Urine pH 6.0 (5.0-9.0) Ur Specific [place] 1.025 (1.005-1.025) Urine Protein 30 A (NEG/TRACE) mg/dL Urine Glucose (UA) 500 A (NEGATIVE) mg/dL Urine Ketones 15 A (NEGATIVE) mg/dL Urine Occult Blood Small A (NEGATIVE) Urine Nitrite Negative (NEGATIVE) Urine Bilirubin Negative (NEGATIVE) Urine Urobilinogen 1.0 (0.2-1.0) EU/dL Ur Leukocyte Esterase Negative (NEGATIVE) Urine RBC 0-2 (0-2) #/HPF Urine WBC 0-2 A (NONE SEEN) #/HPF Ur Squamous Epith Cells None seen (NONE/RARE) #/LPF Urine Crystals None seen (None Seen) #/HPF Urine Bacteria None seen (NONE SEEN) #/HPF Urine Casts None seen (NONE SEEN) #/LPF Urine Mucus Trace A (NONE SEEN) Ur Culture Indicated? No Influenza Type A Ag Negative Influenza Type B Ag Negative SARS-CoV-2 Ag (CV2AG) Negative (NEGATIVE) Imaging Data Chest x-ray: Radiologist's impression: ITS Impressions Chest X-Ray 09/30/24 22:34 IMPRESSION: No acute cardiopulmonary process. Electronically authenticated by: CHER GOLDEN Date: 09/30/2024 23:50 ECG Data Attestation: I personally reviewed and interpreted this ECG as follows: (EKG on my interpretation shows sinus rhythm with a rate of 104 and no acute change) Discharge Plan Discharge Chief Complaint: Urogenital-Male Clinical Impression: Fever Patient Disposition: Admitted as Observation Time of Disposition Decision: 00:11 Condition: Fair
[2024-09-30] MEDS: LIDOCAINE 2% JELLY 20 ML UR (22:45)
[2024-09-30] MEDS: ACETAMINOPHEN 650 MG RECTAL SUPPOSITORY PR (23:00)
[2024-09-30 23:20] LABS: Hematocrit 43.8 % (42.0-54.0); Hemoglobin 14.4 g/dL (14.0-18.0); Mean Corpuscular HGB Conc 32.9 g/dL (29.9-35.2); Mean Corpuscular Hemoglobin 27.7 pg (25.9-34.0); Mean Corpuscular Volume 84.2 fL (80.0-94.0); Platelet Count 154 10^3/uL (150-450); Red Cell Distribution Width 13.6 % (11.0-15.0); White Blood Count 8.6 10^3/uL (4.0-11.0)
[2024-09-30 23:23] LABS: Bilirubin Urine NEGATIVE (NEGATIVE); Blood Urine SMALL (NEGATIVE); Clarity Urine CLEAR (CLEAR); Color Urine YELLOW (YELLOW); Glucose Urine UA 500 mg/dL (NEGATIVE); Ketones Urine 15 mg/dL (NEGATIVE); Leukocyte Esterase Urine NEGATIVE (NEGATIVE); Nitrite Urine NEGATIVE (NEGATIVE); Protein Urine 30 mg/dL (NEG/TRACE); Specific Gravity Urine 1.025 (1.005-1.025)
[2024-09-30 23:31] LABS: Bacteria Urine NONE SEEN #/HPF (NONE SEEN); Crystals Seen? None Seen #/HPF (None Seen); Mucus Urine TRACE (NONE SEEN); RBC Urine 0-2 #/HPF (0-2); Squamous Epithelial Cell Urine NONE SEEN #/LPF (NONE/RARE); WBC Urine 0-2 #/HPF (NONE SEEN)
[2024-09-30 23:32] LABS: Cast Seen? NONE SEEN #/LPF (NONE SEEN); Urine Culture Indicated NO
[2024-09-30 23:34] LABS: Anion Gap 15.5; BUN Creatinine Ratio 7.8; Carbon Dioxide 25.4 mmol/L (21.0-32.0); Chloride 101 mmol/L (98-107); Estimated GFR (African America >60 (>=60 mL/min/1.73m^2); Estimated GFR (Non-African Ame >60 (>=60 mL/min/1.73m^2); Glucose 263 mg/dL (74-106); Potassium 3.9 mmol/L (3.5-5.1); Sodium 138 mmol/L (136-145)
[2024-09-30 23:36] LABS: Influenza Virus A Antigen Negative; Influenza Virus B Antigen Negative; Internal Control Within Normal Limits; SARS-CoV-2 Ag NEGATIVE (NEGATIVE)
--- NOTE | 2024-09-30 23:38 | PC.NURSE ---
Frequent urination, fever
[2024-09-30 23:42] LABS: Atypical Lymphocytes Abs Man 0.17; Basophils Abs Manual 0.08 10^3/uL (0.00-0.10); Eosinophils Absolute Manual 0.25 10^3/uL (0.00-0.70); Lymphocytes Absolute Manual 0.34 10^3/uL (1.20-3.80); Monocytes Absolute Manual 0.08 10^3/uL (0.30-0.80); Segmented Neut Absolute Manual 7.74 10^3/uL (1.4-6.5)
[2024-09-30 23:43] LABS: Tear Drop Cells 2+
[2024-09-30 23:44] LABS: Lactate/Lactic Acid 1.5 mmol/L (0.4-2.0)
[2024-10-01] VITALS (20 sets, daily range): BP systolic 111–195; BP diastolic 69–96; PULSE 85–102; TEMP 36.7–38.9; O2SAT 91–97; BMI 31.4
--- OUTSIDE RECORDS SUMMARY | 2024-10-01 00:54 | XMS_ITS | CCD ---
Author Organization [facility] Care Team Providers Care Compound Mixer Name Role Phone Adilson Salazar Primary Care Provider [phone] OSCAR HARP Admitting Unavailable SONJABOUR, AMFE Consulting Unavailable OMER ZAMBRANO Attending Unavailable ADILSON SALAZAR Primary Care UnavailJAMILA Raygoza Consulting Unavailable ADILSON SALAZAR Primary Care Physician MD Adilson Salazar Primary Care Provider [phone] MD Milvia Palomo Attending Provider MD Adilson [...] Unavailable Naderer Adilson COTTO Primary Care Provider JONATHAN GAN Referring Unavailable JONATHAN GAN Referring [...] Unknown (origin) (qualifier value) [facility] (14 sources) Penicillin; 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: [penicillin] Drug Allergy 7 Unknown [facility] (16 sources) Penicillins; 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: [Penicillins] Allergy to substance 4 Rash [facility] (1 source) Labetalol Drug Allergy [facility] (1 source) Labetalol Drug Allergy 1 [facility] Medications Current Medications Medication Drug [...] suppository 10 mg Blood Glucose Monitoring Suppl (A[employer]og[employer] Verio Flex System) w/Device kit (10 sources) [...] of insulin ([facility]) 1 each in the morning and 1 [...] take 0.25 mg by mouth in the [facility] budesonide (Pulmicort) 0.25 MG/2ML nebulizer solution Take [...] 2 diabetes mellitus with hyperglycemia, 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 ([facility]) Take 1 tablet by mouth twice daily [...] Daily, # 30 tab(s), Refills(s) 6, Pharmacy: [facility] [id number], 183, cm, 04/21/22 11:40:00 [...] hyperglycemia, with long-term current use of insulin ([facility]) INJECT 40 UNITS SUBCUTANEOUSLY AT BEDTIME 15 [...] Active Start: 09-18-2023 take 1 capsule by [facility] every twenty-four hours in the morning [...] Coronary arteriosclerosis; 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: [Atherosclerotic heart disease of [place] coronary artery without angina pectoris] Onset: 03-28-2024 [...] Other m[facility] (current) drug therapy; 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: [OTH RESIDENTIAL CURRENT DRUG THERAPY] Onset: 11-18-2022 Episodic Other aftercare (1 source) rn long term care (current) use of oral hypoglycemic drugs; 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: [RESIDENTIAL USE ORAL HYPOGLYCEMIC DX] Onset: 11-18-2022 Episodic Other aftercare (1 source) rn long term care (current) use of aspirin; 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: [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 ECONOMIST CURRENT USE OF ASPIRIN] Onset: 11-18-2022 Episodic [...] Onset: 03-13-2024 Episodic Other aftercare (3 sources) rn long term care (current) use of insulin; 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: [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 ECONOMIST CURRENT USE OF INSULIN] Onset: 11-18-2022 Episodic [...] Interpretation Reference Range Facility Follow-Upon 08-07-2024 Follow-Up [id number] Eunice Marte 1955 M Date Provider Department [...] Paternal Grandmother Paternal Grandfather Other Level of Service:99999 PA OFFICE/OUTPATIENT ESTABLISHED LOW MDM 20 MIN Reason for Visit and Comments: Follow-up [656703] - Here for F/U of his prostate CA and to review PSA & Testosterone results. Normal [facility] LIPID PANELon 07-24-2024 CHOL/HDL 3.8 mg/dL Normal [facility] Comment on above: Performed By: #### L [id number] #### [facility] ([employer]) [address] [facility] [address] Cholesterol [Mass/Vol] 150 mg/dL Normal 120-200 [facility] Comment on above: Performed By: #### L [id number] #### [facility] ([facility]) [address] [place] [address] Magnesium [Mass/Vol] 111 mg/dL Normal 40-149 [facility] Comment on above: Result Comment: TRIG LYCERIDE REFERENCE RANGE: 20 YEARS AND OLDER CARDIOVASCULAR RISK LESS THAN 150 mg/dL LOW RISK 150 TO 199 mg/dL BORDERLINE RISK 200 mg/dL AND GREATER HIGH RISK Performed By: #### L [id number] #### [facility] (BEAKER) [address] [place] [address] Magnesium [Mass/Vol] 88 mg/dL Normal 0-160 [facility] Comment on above: Performed By: #### L [id number] #### [facility] (BEAKER) [address] [place] [address] Magnesium [Mass/Vol] 40 mg/dL Normal 23-92 [facility] Comment on above: Performed By: #### L [id number] #### [facility] (BEAKER) [address] [place] [address] NON HDL CHOL. (LDL+VLDL) 110 Normal [facility] Comment on above: Performed By: #### L [id number] #### [facility] (BEAKER) [address] [place] [address] TOTAL VLDL-C 22 mg/dL Normal 0-40 [facility] Comment on above: Performed By: #### L [id number] #### [facility] ([facility]) [address] [place] [address] Labon 07-24-2024 Lab [id number] Eunice Marte 1955 M Date Provider Department Center 07/24/2024 2243-[facility] RESOURCE DCC DRAW [facility] Family History Problem Relation Age of Onset Heart disease Mother 58 Heart disease Maternal Grandmother Comments: heart trouble Heart disease Maternal Grandfather Comments: heart trouble Family Status - Relation Status Age at Mother Father Mother's Sister Mother's Brother Father's Sister Father's Brother Maternal Grandmother Maternal Grandfather Paternal Grandmother Paternal Grandfather Other Normal [facility] PSA, DIAGNOSTICon 07-24-2024 PROSTATE SPECIFIC AG (NG/ML) IN SER/PLAS 0.1 ng/mL Low 0.4-4 [facility] Comment on above: Order Comment: To be collected 07/2024 Performed By: #### L [id number] ####[facility] ([facility])[address] [place] [address] TESTOSTERONEon 07-24-2024 TESTOSTERONE (NG/DL) IN SER/PLAS 52 ng/dL Low 193-740 [facility] Comment on above: Order Comment: To be collected 07/2024 Result Comment: Test Performed by [facility] [place] [address] - Released 07/25/2024 11:50 Performed By: #### L [id number] #### [facility] ([facility]) [address] [address] Office Visiton 06-01-2024 Follow-up visit [id number] Eunice Marte 1955 Provider Department Center 06/01/2024 [...] Paternal Grandmother Paternal Grandfather Other Level of Service:22279 PA OFFICE/OUTPATIENT ESTABLISHED LOW MDM 20 MIN Normal [facility] Orders Onlyon 04-25-2024 Orders Only [id number] Eunice Marte 1955 Provider Department Center 04/25/2024 1052-ROSEMARY LEVIN [facility] INT MED Comprehensiv Family History Problem Relation Age of Onset Heart disease Mother 58 Heart disease Maternal Grandmother Comments: heart trouble Heart disease Maternal Grandfather Comments: heart trouble Family Status - Relation Status Age at Mother Father Mother's Sister Mother's Brother Father's Sister Father's Brother Maternal Grandmother Maternal Grandfather Paternal Grandmother Paternal Grandfather Other Normal [facility] Documentationon 04-17-2024 Documentation [id number] Eunice Marte 1955 Provider Department Center 04/17/2024 [id number], [facility] Family History Problem Relation Age of Onset Heart disease Mother 58 Heart disease Maternal Grandmother Comments: heart trouble Heart disease Maternal Grandfather Comments: heart trouble Family Status - Relation Status Age at Mother Father Mother's Sister Mother's Brother Father's Sister Father's Brother Maternal Grandmother Maternal Grandfather Paternal Grandmother Paternal Grandfather Other Reason for Visit and Comments: [id number] [Other] Normal [facility] Documentation [id number] Eunice Marte 1955 Provider Department Center 04/17/2024 [...] Comments: Specialty Phamracy Note: Repatha [Other] Normal [facility] Orders Onlyon 04-16-2024 Orders Only [id number] Eunice Marte 1955 M Date Provider Department Center 04/16/2024 VIVIAN AVITIA [facility] [place] [facility] Family History Problem Relation Age of Onset Heart disease Mother 58 Heart disease Maternal Grandmother Comments: heart trouble Heart disease Maternal Grandfather Comments: heart trouble Family Status - Relation Status Age at Mother Father Mother's Sister Mother's Brother Father's Sister Father's Brother Maternal Grandmother Maternal Grandfather Paternal Grandmother Paternal Grandfather Other Normal [facility] Follow-Upon 04-10-2024 Follow-Up [id number] EstuardoEunice 1955 M Date Provider Department Center 04/10/2024 VIVIAN AVITIA [facility] Family History Problem Relation Age of Onset Heart disease Mother 58 Heart disease Maternal Grandmother Comments: heart trouble Heart disease Maternal Grandfather Comments: heart trouble Family Status - Relation Status Age at Mother Father Mother's Sister Mother's Brother Father's Sister Father's Brother Maternal Grandmother Maternal Grandfather Paternal Grandmother Paternal Grandfather Other Level of Service:89898 PA OFFICE/OUTPATIENT ESTABLISHED MOD MDM 30 MIN Normal [facility] 36on 03-16-2024 36 Post Discharge Call Good morning, I am Rani Tovar, DAMIÁN a lead nurse from [facility]. I am calling you to follow [...] No Patient Name Eunice Marte Date 03/16/24 [facility] Telephoneon 03-16-2024 Telephone [id number] Eunice Marte 1955 M Date Provider Department [...] Maternal Grandfather Paternal Grandmother Paternal Grandfather Other [facility] 30on 03-14-2024 30 Daily Case Managemen t [...] PT Recommendations: OT Recommendations: New Consults: Normal [facility] APOLIPOPROTEIN B-100on 03-14 Magnesium [Mass/Vol] 85 mg/dL Normal 66-133 [facility] Comment on above: Result Comment: REFE [...] atherosclerotic cardiovascular disease in adults. Performed By: [employer] [address] [place] [address] Tubular Riveter: Sylvester Damian MD, PhD CLIA Number: [id number] Performed By: #### L [id number] #### [facility] (BEAKER) [address] [place] [address] CBCon 03-14-2024 Erythrocyte distribution width (RBC) [Ratio] 14.5 % Normal 11.5-15.0 [facility] Comment on above: Performed By: #### L [id number] ####[facility] (BEAKER)[address] [place] [address] ERYTHROCYTE MEAN CORPUSCULAR HEMOGLOBIN CONCENTRATION (G/DL) BY AUTOMATED 32.8 g/dL Normal 32.0-35.0 [facility] Comment on above: Performed By: #### L [id number] ####[facility] (BEAKER)[address] [place] [address] Hematocrit (Bld) [Volume fraction] 35.4 % Low 39.0-55.0 [facility] Comment on above: Performed By: #### L [id number] ####[facility] (BEAKER)[address] [place] [address] Hemoglobin (Bld) [Mass/Vol] 11.6 g/dL Low 13.0-17.0 [facility] Comment on above: Performed By: #### L [id number] ####[facility] (BEAKER)[address] [place] [address] MCH (RBC) [Entitic mass] 28.5 pg Normal 27.0-33.0 [facility] Comment on above: Performed By: #### L [id number] ####[facility] (BEAKER)[address] [place] [address] MCV (RBC) [Entitic vol] 87.0 fL Normal 82.0-98.0 [facility] Comment on above: Performed By: #### L [id number] ####[facility] ([facility])[address] [place] [address] PLATELETS (10*3/UL) IN BLOOD AUTOMATED COUNT 164 10*3/uL Normal 150-400 [facility] Comment on above: Performed By: #### L [id number] ####[facility] ([facility])[address] [place] [address] RBC (Bld) [#/Vol] 4.07 10*6/uL Low 4.20-5.70 [facility] Comment on above: Performed By: #### L [id number] ####[facility] ([facility])[address] [place] [address] WBC (Bld) [#/Vol] 5.46 10*3/uL Normal 4.00-10.60 [facility] Comment on above: Performed By: #### L [id number] ####[facility] ([facility])[address] [place] [address] HEMOGLOBIN A1Con 03-14-2024 Glucose [Mass/Vol] 183 mg/dL Normal [facility] Comment on above: Performed By: #### L [id number] ####[facility] ([facility])[address] [place] [address] HbA1c (Bld) [Mass fraction] 8.0 % High 4.0-6.0 [facility] Comment on above: Performed By: #### L [id number] ####[facility] ([facility])[address] [place] [address] HPon 03-14-2024 HP H&P reviewed. The patient was examined and there are no changes to the H&P. Patient is a 68 yo male patient with a PMH of CVA, CKD presenting for unstable angina. Lexiscan Myocardial Perfusion Stress Test is positive for reversible filling defect at the anterior and apical sections. Patient will undergo diagnostic CORS. Normal [facility] LIPID PANELon 03-14-2024 CHOL/HDL 3.4 mg/dL Normal [facility] Comment on above: Performed By: #### L [id number] #### [facility] ([facility]) [address] [place] [address] Cholesterol [Mass/Vol] 126 mg/dL Normal 120-200 [facility] Comment on above: Performed By: #### L [id number] #### [facility] ([facility]) [address] [place] [address] Magnesium [Mass/Vol] 124 mg/dL Normal 40-149 [facility] Comment on above: Result Comment: TRIG LYCERIDE REFERENCE RANGE: 20 YEARS AND OLDER CARDIOVASCULAR RISK LESS THAN 150 mg/dL LOW RISK 150 TO 199 mg/dL BORDERLINE RISK 200 mg/dL AND GREATER HIGH RISK Performed By: #### L [id number] #### [facility] ([facility]) [address] [place] [address] Magnesium [Mass/Vol] 64 mg/dL Normal 0-160 [facility] Comment on above: Performed By: #### L [id number] #### [facility] ([facility]) [address] [place] [address] Magnesium [Mass/Vol] 37 mg/dL Normal 23-92 [facility] Comment on above: Performed By: #### L [id number] #### [facility] ([facility]) [address] [place] [address] NON HDL CHOL. (LDL+VLDL) 89 Normal [facility] Comment on above: Performed By: #### L [id number] #### [facility] ([facility]) [address] [place] [address] TOTAL VLDL-C 25 mg/dL Normal 0-40 [facility] Comment on above: Performed By: #### L [id number] #### [facility] ([facility]) [address] [place] [address] LIPOPROTEIN A (LPA)on 2023 Magnesium [Mass/Vol] 198 mg/dL High <=29 [facility] Comment on above: Result Comment: Perf ormed By: [employer] [address] [place] [address] Tubular Riveter: Sylvester Damian MD, PhD CLIA Number: [id number] Performed By: #### L [id number] #### [facility] (BEAKER) [address] [place] [address] POCT GLUCOSE METER UNSOLICIT ED RESULTSon 03-14-2024 Glucose [Mass/Vol] 149 mg/dL High 70-105 [facility] Comment on above: Order Comment: Waive d Testing in the ED is performed under the ED CLIA certificate #[id number]. Result Comment: [email or web address] Performed By: #### L [id number] #### [facility] (BEAKER) [address] [place] [address] Glucose [Mass/Vol] 144 mg/dL High 70-105 [facility] Comment on above: Order Comment: Waive d Testing in the ED is performed under the ED CLIA certificate #[id number]. Result Comment: [email or web address] Performed By: #### L [id number] #### [facility] (BEAKER) [address] [place] [address] 30on 03-13-2024 30 The patient is Moderately [...] injury: Assess patient frequently for physical needs Revere fall precautions as indicated by assessment Instruct [...] exacerbated and prevent overall improvement and discharge [facility] 30 The patient is Moderately Stable - Low risk of patient condition declining or worsening The patient's goals for the shift include no chest pain The clinical goals for the shift include VSS, stress test Over the shift, the patient did make progress toward the following goals. Stress test positive, heart cath ordered for tomorrow. [facility] 30 Daily Case Managemen t Update Multidisciplinary [...] Score: PT Recommendations: OT Recommendations: New Consults: [facility] 30 The patient is Moderately Stable - [...] pt to express when having pain. Normal [facility] APTTon 03-13-2024 ACTIVATED PARTIAL THROMBOPLASTIN TIME IN PPP BY COAGULATION ASSAY 61.0 Seconds High 25.0-35.0 [facility] Comment on above: Order Comment: Basel ine aPTT before initiating heparin infusion. Result Comment: Clin ical significance of the APTT is questionable in the presence of heparin. Performed By: #### L [id number] ####[facility] ([facility])[address] [place] [address] B-TYPE NATRIURETIC PEPTIDEon 03-13-2024 Natriuretic peptide B (Bld) [Mass/Vol] 65 pg/mL Normal 0-100 [facility] Comment on above: Performed By: #### L [id number] #### [facility] ([facility]) [address] [place] [address] CBCon 03-13-2024 Erythrocyte distribution width (RBC) [Ratio] 14.6 % Normal 11.5-15.0 [facility] Comment on above: Performed By: #### L [id number] ####[facility] ([facility])[address] [place] [address] ERYTHROCYTE MEAN CORPUSCULAR HEMOGLOBIN CONCENTRATION (G/DL) BY AUTOMATED 32.2 g/dL Normal 32.0-35.0 [facility] Comment on above: Performed By: #### L [id number] ####[facility] ([facility])[address] [place] [address] Hematocrit (Bld) [Volume fraction] 36.9 % Low 39.0-55.0 [facility] Comment on above: Performed By: #### L [id number] ####[facility] (BEAKER)[address] [place] [address] Hemoglobin (Bld) [Mass/Vol] 11.9 g/dL Low 13.0-17.0 [facility] Comment on above: Performed By: #### L [id number] ####[facility] ([facility])[address] [place] [address] MCH (RBC) [Entitic mass] 28.7 pg Normal 27.0-33.0 [facility] Comment on above: Performed By: #### L [id number] ####[facility] ([facility])[address] [place] [address] MCV (RBC) [Entitic vol] 89.1 fL Normal 82.0-98.0 [facility] Comment on above: Performed By: #### L [id number] ####[facility] ([facility])[address] [place] [address] PLATELETS (10*3/UL) IN BLOOD AUTOMATED COUNT 159 10*3/uL Normal 150-400 [facility] Comment on above: Performed By: #### L [id number] ####[facility] ([facility])[address] [place] [address] RBC (Bld) [#/Vol] 4.14 10*6/uL Low 4.20-5.70 [facility] Comment on above: Performed By: #### L [id number] ####[facility] ([facility])[address] [place] [address] WBC (Bld) [#/Vol] 5.62 10*3/uL Normal 4.00-10.60 [facility] Comment on above: Performed By: #### L [id number] ####[facility] ([facility])[address] [place] [address] COMPREHENSIVE METABOLIC PANE Mack 03-13-2024 Albumin [Mass/Vol] 3.8 g/dL Normal 3.5-5.7 [facility] Comment on above: Performed By: #### L [id number] ####[facility] (BEAKER)[address] [place] [address] ALP [Catalytic activity/Vol] 68 U/L Normal 34-104 [facility] Comment on above: Performed By: #### L [id number] ####[facility] (BEAKER)[address] [place] [address] ALT [Catalytic activity/Vol] 33 U/L Normal 7-52 [facility] Comment on above: Performed By: #### L [id number] ####[facility] (BEAKER)[address] [place] [address] Anion gap [Moles/Vol] 11 mmol/L Normal 7-20 [facility] Comment on above: Performed By: #### L [id number] ####[facility] ([facility])[address] [place] [address] AST [Catalytic activity/Vol] 27 U/L Normal 13-39 [facility] Comment on above: Performed By: #### L [id number] ####[facility] ([facility])[address] [place] [address] Bilirubin [Mass/Vol] 0.5 mg/dL Normal 0.3-1.0 [facility] Comment on above: Performed By: #### L [id number] ####[facility] ([facility])[address] [place] [address] Calcium [Mass/Vol] 8.9 mg/dL Normal 8.6-10.3 [facility] Comment on above: Performed By: #### L [id number] ####[facility] ([facility])[address] [place] [address] Chloride [Moles/Vol] 102 mmol/L Normal 98-107 [facility] Comment on above: Performed By: #### L [id number] ####[facility] ([facility]AKER)[address] [place] [address] CO2 [Moles/Vol] 30 mmol/L Normal 21-31 [facility] Comment on above: Performed By: #### L [id number] ####[facility] (BEAKER)[address] [place] [address] Creatinine [Mass/Vol] 0.86 mg/dL Normal 0.70-1.30 [facility] Comment on above: Performed By: #### L [id number] ####[facility] ([facility])[address] [place] [address] GLOMERULAR FILTRATION RATE ML/MIN/1.73 SQ M.PREDICTED 94.3 mL/min/1.73m*2 Normal >60.0 [facility] Comment on above: Result Comment: [facility]???s estimated glomerular filtration rate (eGFR) will no [...] of individuals. Performed By: #### L [id number] ####[facility] ([facility])[address] [place] [address] Glucose [Mass/Vol] 144 mg/dL High 70-100 [facility] Comment on above: Performed By: #### L [id number] ####[facility] ([facility])[address] [place] [address] Potassium [Moles/Vol] 3.5 mmol/L Normal 3.5-5.1 [facility] Comment on above: Performed By: #### L [id number] ####[facility] ([facility])[address] [place] [address] Protein [Mass/Vol] 6.5 g/dL Normal 6.0-8.3 [facility] Comment on above: Performed By: #### L [id number] ####[facility] ([facility])[address] [place] [address] Sodium [Moles/Vol] 139 mmol/L Normal 136-145 [facility] Comment on above: Performed By: #### L [id number] ####[facility] ([facility])[address] [place] [address] Urea nitrogen [Mass/Vol] 17 mg/dL Normal 7-25 [facility] Comment on above: Performed By: #### L [id number] ####[facility] ([facility])[address] [place] [address] UREA NITROGEN/CREATININE (MASS RATIO) IN SER/PLAS 19.8 Normal [facility] Comment on above: Performed By: #### L [id number] ####[facility] ([facility])[address] [place] [address] CONSULTon 03-13-2024 CONSULT - Attestation signed by [...] risk factors including hypertension and hyperlipidemia. In [facility] he hide high elevated high-sensitivity troponin of [...] the form of amlodipine. Arnoldo Killian MD, [facility] Cardiology Consult Note Reason for Consult: positive stress test HPI: Eunice Marte is a 68 y.o. male with history of diabetes mellitus, hypertension was referred to our hospital for concerns for NSTEMI the patient was seen in [place] with episodes of chest pain that got [...] disease), CKD (chronic kidney disease), stage III ([facility]), Depression, DM (diabetes mellitus) ([facility]) (2007), Erectile dysfunction, GERD (gastroesophageal reflux disease), H/O deep venous thrombosis, HLD (hyperlipidemia), HTN (hypertension), Myocardial infarction ([facility]) (2021), ALLISON on CPAP, Prostate cancer ([facility]), Status post placement of implantable loop recorder, and Stroke ([facility]) (04/2015). Surgical History He has a past [...] XR (Gl (more content not included)... Normal [facility] FERRITINon 03-13-2024 FERRITIN (NG/ML) IN SER/PLAS 281.0 ng/mL Normal 24.0-336.0 [facility] Comment on above: Performed By: #### L [id number] ####[facility] (BEAKER)[address] [place] [address] FOLATEon 03-13-2024 FOLATE (NG/ML) IN SER/PLAS 9.66 ng/mL Normal 6.6-1000 [facility] Comment on above: Performed By: #### L AB69 ####[facility] (BEAKER)[address] [place] [address] HPon 03-13-2024 - Attestation signed by Arnoldo [...] risk factors including hypertension and hyperlipidemia. In [facility] he hide high elevated high-sensitivity troponin of [...] the form of amlodipine. Arnoldo Killian MD, [facility] Cardiology Consult Note Reason for Consult: positive stress test HPI: Eunice Marte is a 68 y.o. male with history of diabetes mellitus, hypertension was referred to our hospital for concerns for NSTEMI the patient was seen in [place] with episodes of chest pain that got [...] disease), CKD (chronic kidney disease), stage III ([facility]), Depression, DM (diabetes mellitus) ([facility]) (2007), Erectile dysfunction, GERD (gastroesophageal reflux disease), H/O deep venous thrombosis, HLD (hyperlipidemia), HTN (hypertension), Myocardial infarction ([facility]) (2021), ALLISON on CPAP, Prostate cancer ([facility]), Status post placement of implantable loop recorder, and Stroke ([facility]) (04/2015). Surgical History He has a past [...] XR (Gl (more content not included)... Normal [facility] IRON AND TIBCon 03-13-2024 IRON (UG/DL) IN SER/PLAS 95 ug/dL Normal 50-212 [facility] Comment on above: Performed By: #### L [id number] ####[facility] (BEAKER)[address] [place] [address] IRON BINDING CAPACITY (UG/DL) IN SER/PLAS 271 ug/dL Normal 250-450 [facility] Comment on above: Performed By: #### L [id number] ####[facility] (BEAKER)[address] [place] [address] IRON BINDING CAPACITY.UNSATURATED (UG/DL) IN SER/PLAS 176.0 ug/dL Normal 155.0-355.0 [facility] Comment on above: Performed By: #### L [id number] ####[facility] (BEAKER)[address] [place] [address] IRON SATURATION (%) IN SER/PLAS 35 % Normal 20-50 [facility] Comment on above: Performed By: #### L [id number] ####[facility] (BEAKER)[address] [place] [address] LACTIC ACID WITH 4 HOUR REFL EXon 03-13-2024 LACTATE (MMOL/L) IN SER/PLAS 1.0 mmol/L Normal 0.5-2.2 [facility] Comment on above: Performed By: #### L [id number] #### [facility] ([facility]) [address] [place] [address] MAGNESIUMon 03-13-2024 Magnesium [Mass/Vol] 2.0 mg/dL Normal 1.9-2.7 [facility] Comment on above: Performed By: #### L [id number] ####[facility] ([facility])[address] [place] [address] PHOSPHORUSon 03-13-2024 Magnesium [Mass/Vol] 3.6 mg/dL Normal 2.5-5.0 [facility] Comment on above: Performed By: #### L [id number] #### [facility] ([facility]) [address] [place] [address] PLATELET COUNTon 03-13-2024 PLATELETS (10*3/UL) IN BLOOD AUTOMATED COUNT 171 10*3/uL Normal 150-400 [facility] Comment on above: Performed By: #### L [id number] ####[facility] ([facility])[address] [place] [address] POCT GLUCOSE METER UNSOLICIT ED RESULTSon 03-13-2024 Glucose [Mass/Vol] 196 mg/dL High 70-105 [facility] Comment on above: Order Comment: Waive d Testing in the ED is performed under the ED CLIA certificate #[id number]. Result Comment: [email or web address] Performed By: #### L [id number] #### [facility] ([facility]) [address] [place] [address] Glucose [Mass/Vol] 213 mg/dL High 70-105 [facility] Comment on above: Order Comment: Waive d Testing in the ED is performed under the ED CLIA certificate #[id number]. Result Comment: [email or web address] Performed By: #### L AB18 #### [facility] ([facility]) [address] [place] [address] Prep for Procedureon 024 Prep for Procedure [id number] Eunice Marte 1955 M Date Provider Department Center 03/13/2024 [id number] RAO [facility] Family History Problem Relation Age of Onset Heart disease Mother 58 Heart disease Maternal Grandmother Comments: heart trouble Heart disease Maternal Grandfather Comments: heart trouble Family Status - Relation Status Age at Mother Father Mother's Sister Mother's Brother Father's Sister Father's Brother Maternal Grandmother Maternal Grandfather Paternal Grandmother Paternal Grandfather Other Normal [facility] TROPONIN Ion 03-13-2024 Troponin I.cardiac [Mass/Vol] 0.03 ng/mL Normal 0.00-0.04 [facility] Comment on above: Performed By: #### L [id number] #### [facility] ([facility]) [address] [place] [address] Troponin I.cardiac [Mass/Vol] 0.04 ng/mL Normal 0.00-0.04 [facility] Comment on above: Performed By: #### L [id number] ####[facility] ([facility])[address] [place] [address] Troponin I.cardiac [Mass/Vol] 0.03 ng/mL Normal 0.00-0.04 [facility] Comment on above: Performed By: #### L [id number] #### [facility] ([facility]) [address] [place] [address] VITAMIN B12on 03-13-2024 Cobalamin (Vitamin B12) [Mass/Vol] 313 pg/mL Normal 180-914 [facility] Comment on above: Result Comment: REFE RENCE RANGES: 180-914 pg/mL Normal 145-179 pg/mL Indeterminate <145 pg/mL Deficient Performed By: #### L AB18 #### [facility] ([facility]) [address] [place] [address] 36on 02-14-2024 36 Prescription approve d 02/13/2024 through mychart request. Lilia Gonzalez MA Normal [facility] Follow-Upon 02-14-2024 Follow-Up [id number] Eunice Marte 1955 M Date Provider Department Center 02/14/2024 397-[facility] ONC DCC Family History Problem Relation Age of Onset Heart disease Mother 58 Heart disease Maternal Grandmother Comments: heart trouble Heart disease Maternal Grandfather Comments: heart trouble Family Status - Relation Status Age at Mother Father Mother's Sister Mother's Brother Father's Sister Father's Brother Maternal Grandmother Maternal Grandfather Paternal Grandmother Paternal Grandfather Other Level of Service:65509 PA OFFICE/OUTPATIENT ESTABLISHED LOW MDM 20 MIN Reason for Visit and Comments: Follow-up [017813] - Here for F/U of his prostate CA and to review PSA results. Normal [facility] Labon 02-06-2024 Lab [id number] Eunice Marte 1955 M Date Provider Department Center 02/06/2024 2243-[facility] RESOURCE DCC DRAW [facility] Family History Problem Relation Age of Onset Heart disease Mother 58 Heart disease Maternal Grandmother Comments: heart trouble Heart disease Maternal Grandfather Comments: heart trouble Family Status - Relation Status Age at Mother Father Mother's Sister Mother's Brother Father's Sister Father's Brother Maternal Grandmother Maternal Grandfather Paternal Grandmother Paternal Grandfather Other Normal [facility] PSA, DIAGNOSTICon 02-06-2024 PROSTATE SPECIFIC AG (NG/ML) IN SER/PLAS <0.1 Low 0.4-4 [facility] Comment on above: Order Comment: To be collected in 01/2024 Performed By: #### L [id number] #### [facility] (BEAKER) [address] [place] [address] TESTOSTERONEon 02-06-2024 TESTOSTERONE (NG/DL) IN SER/PLAS 11 ng/dL Low 193-740 [facility] Comment on above: Order Comment: To be collected in 01/2024 Result Comment: Test Performed by [facility] [place] [address] - Released 02/06/2024 22:51 Performed By: #### L AB124 #### [facility] [address] [place] [address] Telephoneon 10-31-2023 Telephone [phone] Eunice Marte 1955 M Date Provider Department [...] Grandfather Paternal Grandmother Paternal Grandfather Other Normal [facility] MLR HEMOGLOBIN A1Con 024 Glucose [Mass/Vol] 189 mg/dL [facility] HbA1c (Bld) [Mass fraction] 8.2 % High 4.5 - 6.2 % [facility] Comment on above: ADA RECOMMENDED LIMI T 4.0 - 6.0 ADA THERAPEUTIC TARGET < 7.0 ACTION SUGGESTED > 7.0 Interpretation and review of laboratory results Abnormal [facility] Follow-Upon 09-20-2023 Follow-Up [id number] Eunice Marte 1955 M Date Provider Department [...] Paternal Grandmother Paternal Grandfather Other Level of Service:71420 PA OFFICE/OUTPATIENT ESTABLISHED LOW MDM 20 MIN Reason for Visit and Comments: Follow-up [424667] - 2 month follow up with PSA and testosterone prior Normal [facility] Pathology Reporton Pathology Report [id number]# 1.00CD:127 Normal [facility] Urology Office/Clinic Noteon 02-03-2023 Urology Office/Clinic [...] - 8.2 & 5.0% Prior TRUS/Bx by [facility] 08/2020 was negative MRI prostate 05/26/22 - [...] prostatectomy/IPP infectio (more content not included)... Normal [facility] Comment on above: Result Comment: Elec [...] bladder) ALLISON (more content not included)... Normal [facility] Patient Educationon 02-03-20 23 Patient Education [...] likelihood that the cancer will spread. ? [place] 6 or lower: This indicates that the cancer cells look similar to normal prostate cells (well differentiated). ? [place] 7: This indicates that the cancer cells [...] external be (more content not included)... Normal [facility] Provider Letteron 02-02-2023 Provider Letter February 02, 2023 EUNICE MARTE [address] [place] [address] : 1955 To Whom It May Concern, Please excuse above patient from work. Date of Appointments: From: 02/02/2023 To: _ May Return to Work On:02/03/2023 Restrictions: none Comments: [facility] is with patient for all appointments, any question, please call our office Sincerely, [facility] [address], [place] [address] [facility] [place] 02-02-2023 Screens [id number]# 1.00CD:127 [facility] Screens [id number]# 1.00CD:127 [facility] Consultation Noteon 02-02-20 Consultation Note [id number]#1 .00CD:127 [facility] Consultation Noteon 12-09-19 Consultation Note [id number]#1 .00CD:127 [facility] Ambulatory Visit Summaryon 0 11-03-2022 Ambulatory Visit Summary EUNICE MARTE :1955 Visit Date:11/03/2022 Ambulatory Visit Instructions Your Diagnosis Prostate cancer Enlarged prostate with urinary obstruction Nocturia Erectile dysfunction Tests Performed Urnls Dip Stick Auto w/o Microscopy POC 07712 Your Care Team Attending Physician - Dewey [...] COTTO, Milvia Lucia Where: [facility] Patient Educationon 11-04-19 Patient Education Oncology [...] Are older than age 65. ? Are -English. ? Are obese. ? Have a family [...] Follow these instructions at home: ? Take zgiz-vxh-iudvkho and prescription medicines only as told by [...] cancer specialis (more content not included)... Normal [facility] Urology Office/Clinic Noteon 11-03-2022 Urology Office/Clinic [...] URL, URO (more content not included)... Normal [facility] Comment on above: Result Comment: Elec tronically Signed By: Milvia Palomo MD\.br\Date and Time Signed: 11/03/22 08:40 EDT\.br\Electronically Co-Signed By: Gifty Mann\.br\Date and Time Co-Signed: 11/03/22 08:35 EDT Lab Reportson 10-26-2022 Lab Reports [id number]#1 .00CD:127 Normal [facility] PSA, FREE AND TOTAL RATIOon 10-26-2022 % Free PSA 5.0 % Normal [facility] Comment on above: Result Comment: The table [...] Performed By: #### P TT, PT #### [facility] [address] [place] [address] Dr. Marcell Luque Prostate specific Ag [Mass/Vol] 8.2 ng/mL Critically high 0.0-4.0 [facility] Comment on above: Result Comment: Anamika DENIS methodology. . According to the [employer], Serum PSA should decrease and [...] Performed By: #### P TT, PT #### [facility] [address] [place] [address] Dr. Marcell Luque PSA, Free 0.41 ng/mL Normal N/A [facility] Comment on above: Result Comment: Anamika robb ECLKAILYN methodology. Performed By: #### P TT, PT #### [facility] [address] [place] [address] Dr. Marcell Luque Auth for Release of Medical Recordson 10-25-2022 Auth for Release of Medical Records [id number]#1 .00CD:127 [facility] [place] 10-11-2022 Screens [id number] #1.00CD:127 Normal [facility] Screens [id number]#1 .00CD:127 Normal [facility] Ambulatory Visit Summaryon 0 10-06-2022 Ambulatory Visit Summary UENICE MARTE :1955 Visit Date:10/06/2022 Ambulatory Visit Instructions Your Diagnosis Prostate cancer BPH with urinary obstruction Nocturia Erectile dysfunction Tests Performed Urnls Dip Stick Auto w/o Microscopy POC 57854 Your Care Team Attending Physician - Dewey [...] Milvia Palomo MD Where: [facility] Patient Educationon 10-06-19 23 Patient Education [...] 07/25/2013 Document Revised: 03/28/2019 Document Reviewed: 03/28/2019 [employer] Patient Education ? 2020 Ship It Bag Check. Oncology Brachytherapy for Prostate Cancer Brachytherapy for [...] including vitamins, herbs, eye drops, creams, and btto-mbu-fofsbkh medicines. ? Any problems you or family [...] drinks that c (more content not included)... [facility] Provider Letteron 10-06-2022 Provider Letter October 06, 2022 EUNICE MARTE [address] [place] [address] EUNICE MARTE 1955 To Whom It May Concern, Please excuse above patient from work. Date of Appointment: From: 10/06/2022 To: May Return to Work On:10/06/2022 Restrictions: Comments: Any questions, please call our office. Sincerely, [facility] [address], [place] [address] [facility] Urology Office/Clinic Noteon 10-06-2022 Urology Office/Clinic [...] Hx IPP > 10 yrs ago in [place]. No prior abd surgeries. Hx L5 fusion, [...] Gifty Dean (more content not included)... Normal [facility] Comment on above: Result Comment: Elec tronically Signed By: Milvia Palomo MD\.br\Date and Time Signed: 10/06/22 08:48 EST\.br\Electronically Co-Signed By: Gifty Mann\.br\Date and Time Co-Signed: 10/06/22 08:37 EST Lab Reportson 09-27-2022 Lab Reports [id number]#1 .00CD:127 [facility] Reference Lab Reporton 09-27 Reference Lab Report [id number]#1 .00CD:127 [facility] Consultation Noteon 09-24-19 Consultation Note [id number]#1 .00CD:127 [facility] RAD - Pet Scan Reporton RAD - Pet Scan Report [id number]#1 .00CD:127 [facility] Formson 09-10-2022 Forms [id number]#1 .00CD:127 [facility] RAD - CT Reporton 08-20-2022 RAD - CT Report [id number]#1 .00CD:127 [facility] Lab Reportson 08-09-2022 Lab Reports [id number]#1 .00CD:127 [facility] CREATININEon 08-06-2022 Creatinine [Mass/Vol] 0.99 mg/dL Normal 0.70-1.30 [facility] Comment on above: Performed By: #### C MATI #### [facility] [address] [address] [address] Marcell Luque EGFR-AF [facility] LUCIAN >60 Normal >=60 [facility] Comment on above: Performed By: #### C MATI #### [facility] [address] [address] [address] Marcell Luque EGFR-NON AF [facility] LUCIAN >60 Normal >=60 [facility] Comment on above: Performed By: #### C MATI #### [facility] [address] [place], [place] [address] ABD/PELV W CONon [...] by: SUELLEN MAYO Date: 2022-08-06 16:00 Normal [facility] Physician Orderon 08-05-2022 Physician Order [id number]#1 .00CD:127 [facility] [place] 08-05-2022 Screens [id number]#1 .00CD:127 [facility] Screens [id number]#1 .00CD:127 [facility] Patient Educationon 08-04-20 22 Patient Education [...] including vitamins, herbs, eye drops, creams, and txwp-oef-kqguame medicines. ? Any problems you or family [...] You w (more content not included)... [facility] Provider Letteron 08-04-2022 Provider Letter August 04, 2022 EUNICE [address]TE [address] [place] [address] EUNICE MARTE 1955 To Whom It May Concern, Please excuse above patient from work. Date of Illness: From: 08/04/2022 To: 08/04/2022 May Return to Work On: Restrictions: _ Comments: Sincerely, [facility] [address] [address] Normal [facility] Urology Office/Clinic Noteon 08-04-2022 Urology Office/Clinic [...] node dissection. I showed him the [facility] calculator which estimate his risk of organ [...] Discussed effects of tx on ED Orders: [facility] External Ambulatory Referral Follow-up With When Contact Information Dewey COTTO, Milvia Lucia, URL, URO Within 1 month Additional Instructions: Discuss PSMA PET scan & treatment options Patient Education Brachytherapy for Prostate Cancer IGood (more content not included)... Normal [facility] Comment on above: Result Comment: Elec tronically Signed By: Dewey COTTO, Milvia Polo.br\Date and Time Signed: 08/04/22 10:53 EST Reminderson 08-03-2022 Reminders - From: Lulu Peralta LPN To: N - Clinical; Sent: 08/03/2022 14:08:01 EST Show up: 06/20/2032 07:00:00 EDT Subject: colonoscopy recall Due Date/Time: 07/21/2032 07:00:00 EST Reminder/Recall Patient is due for screening colonoscopy 07/21/2032. [facility] Auth for Release of Medical Recordson 07-29-2022 Auth for Release of Medical Records [id number]#1 .00CD:127 [facility] Pathology Noteon 07-26-2022 Pathology Note [id number]#1 .00CD:127 [facility] Outside Colonoscopyon 2021 Outside Colonoscopy [id number]#1 .00CD:127 [facility] Lab Reportson 07-19-2022 Lab Reports [id number]#1 .00CD:127 [facility]23 SARS-CoV-2 (COVID-19) RNA NISHANT+probe Ql (Unsp spec) Not detected Normal NOT DETECTED [facility] Comment on above: Result Comment: [...] for this test is supported by the Cooling Room Attendant of Health and Human Service's declaration that [...] Performed By: #### P TT, PT #### [facility] [address] [place] [address] Dr. Marcell Luque IntraOperative Documentson 1 09-11-2021 IntraOperative Documents [id number]# 1.00CD:127 [facility] Coding Summary.on 07-09-2022 Coding Summary. CD:[id number] G h0bWw+PGhlYWQ+HC8IFAR uY41dyXJfoP8VZ5mUEM4D VXFZZUFNSI2CDD4taME9D YbcQ4FungUg XmkftJIgIU34MZv1EJG0s AncPOoemP8wvOEhW9x5Wd LuHA77eO64BPmqCGQnCcW 3LjZpbjsgbWFy E9alPsXvsWJbXwf+PHRhY mxlIHdpZHRoPScxMDAlJy DvgFhtDS2mHb9qRFBhYWR vbGxhcHNlOiBj d5xjDJIvYXukQM4fbBwwM 2VpnRS5MWWxn3y5Mp70kA I+HYAhNMW8jKtrTLubz87 4HaKwo4ayXAD4 mOCiTFmtYZF5R68rn3Q2X EZgJIEpRSW8eAL3lY0wkV ywkdntX1KuhYOvAgU3POM 7uZYkbK5htTix kaeqeW8uEzc+D98IHB4LI CIEDH2MDpc7J1WnOjkelL I+PX86MOTlCB39vNCdvBB tv8gmiAn6LbBp ZPBzTBD8cEziGUdhk4MkO IWfM92wmMTeq6O6WHGieI ldeBIcVyMjuQJ7qA1dHWm zluudi5zurbdx Yavdt7gbhq76iQ82E31zJ BhuBZLvWRW9TTOdFSOyaR hijs6wvN4oWe6+UIknf2s ct0pxuRa4TpVm YFLumdGzfErbDYG6n7EtF c39M1QpnSkyw3MyRyz3yw 89iTVbv3H5jRN2ZVyaZZF gwF1mWXeyKmH9 QFKrIxJvdZ37fQEhQHoiG r5niVobcMagDS9qQKYaoq jgVHTrvK0kKBSmgXAkmXk kRR1uLZUjrhrb i764NkQuGSR6SJWnlMEfF 5MwlW3vKyNvZSVfAZUmH4 EyyZFyUJvoA950CRyeKlD 7HYGgciLsE6Ac XXJhdPnvKaY6z0Z6Li0Aj 0GsfvfjDCS4XHnxVRFlOn Q6SpSbSsY8F2TuKbs0XZL jxTnaXP0tD0Rl PGYefltwznkyvSL6GJArN QYxpK97tUMcDMtwGt9nx2 K8e469KZMjRRWehH02Yn3 udDogMTBwdCBU vY3gsojpu4iqpzrkZgMxP JNfEZl0VSn6NSSgkYajWe GwIUV5AwG8SAV3hZNyiO4 unTnjnytozB5h Oyc+J27szZ2pNHT0HLA2x epnAXIetnOcHW77WZ20K1 RyPjwvdGFibGU+PGRpdiB amQinDS4zKhMq q1zgi1MwYGmgX5GsAXBtL HsyHqd0OFZdUJJ3rEL8nU 3wSXReSNvtp5U7mWR2M7N ttuAtim0wf5zd KAKoNRatT92pzQMhf7M5P WHcrBK1FCEznVqtQtCgcL 93Oyc+QFVoyLkfw6TxCng zt2fji8wymKz0 MrSlOAItxoLrdMvuHFS3v 8CdKd25X89vTBdhWWWiAM AhOAImUYUguRmhig9tmI2 wIi8+PGNvbCB3 mLC0kN1uYCBlIfU7JHhfL 836BwHqbFWlEijsi4bpf5 jatIu6QwBpLPDfivRdhVs gGGJ9p2OqEh90 X78rOXvnNFQaMOAbCEVoB KJqzGsemi9gxN4cNg1+PC 7co1gimb74kY78iFC+PHR zUMW1eKqmKUdc AANleF4oDLzjDfJ1JYGuX pYzhF01pBOySYlbCv1cjR vdrVgbHB3eUWHsvmitj79 7FiUan7ycEZAp hKKsZWubISX8O59bu6G4J JObQDRwAFB5nFU8nM5hjI lnbjogbGVmdDsgdmVydGl nWNhpVBkcW494 IHRvcDsnPlBhdGllbnQgT jCzACq2W9RmWqu7BZUwtA ciVM4lrVAdDIwwLl6oiIa bvIpxGM1hAFJa voken109XhVqk3lyFQMwu BCcBLezKVF3C33fz3T0WI DeMOZtSZF1aSV5qP2poZs nbjogbGVmdDsg wmOquUuaMYdwQWkuH340U HRvcDsnPkJpcnRoIERhdG A8ZB42PN20eFDus1P1gMJ 5C8IrBCXeyhfc hkyuaFV4PGAoSECbgP76P s0dvQtwBs6qPJBySEG3CE EvlLOtV8LosC6mPsCdWJM uNDQcL6WtqREu UOolX453LQdiXaR6PXPpy oFmG8AiKRXqbZvxHvV9p1 C5Yd9NE6A5OM58PJ87pBF pi1V7iML0I7Qb XFAguxflfivvfJF4VLJsL XVkoI63Rx9vlAfjPn8vZX DeDMP7RGQmrQGxT1KscL5 yOiAjMDAwMDAw J4TtfSNrPHnrF728IOheH rU2VDBxmoDmW4PqXDXgeP sfXjL2y6Z2Oa4RMXq0MR6 0MN08jGCpy6X5 eAY9S4BcPKBzxjwprzvnt UX3AIMdIOUvuF03Kd4heW rkQg8jVGWuJSM4YOHosGZ kF8QwpK0kJmEq VWMlMUJjN3KufZXtVAplR 706UAotCfA4HDBtbbTnF2 SbUMBihZhsDnR9a5P4Vq8 PDZHsBX26IGT2 kPQ5GK63WL70H6ErUtvbm GFibGU+PHRhYmxlIHdpZH RoPScxMDAlJyBzdHlsZT0 pLj8sECIrCEIu jDushMExYvKva0qmDTBfO QgoLG6dpYgsX2WxuBE5YP Ehs6i5Ls39F89jS2TbtNS +XRFfaOQ9kPM0 sF2tIiEpFnH0LEkaY872J eMeyWTnAoipt5bxz8lewN s1HnB6BNIllzHyeAxtONC 2w8XcJc90W05o IHdpZHRoPSIxNSUiIHZhb Vkfjz1xgY8vTv0+PGNvbC O5lKR3lY4uPtYkPuT7WCf kE115WiOgsVLm Ekass8nyr3yymNq5PuRwX WQngbJmpVliXZM4w5SfJn 87H2DujAnsm6VlOtk3jz0 1wIGvj8B0gLF3 L5MfFEJgwlmanNWboQktP E0iQMKtfsfpMPYduM8mCP HcO1p0GgDbHmO2ZTjmX1L kumQ2SXGuySBq VQcbBTD1R02ol6I3FSJhH OSkDVU3xDE4wU3svXelho ogbGVmdDsgdmVydGljYWw dTBgkE138YLGt lFhcEVStxP6wSBElgPJcx ZuuTE3fHSOtpoprVhbGRY RFTEJVUkcsIEpBTUVTIFI 5P0OjZra5NBJc uYpkSS5uqZXbAJctBt6pz NxkyLtwRQ4sHBLflbngSH CikI4kBMRxaPLbnKteSM0 hLJIgmvvxd184 ZtUlAJA5NYDwdGAkN8Xaq D2hPrJhGCYwEHNjL6WxzY ExQIixX821HOuwJxK3TIG vmxErW1JgHQFk mWbsCmM5h4O5Du9iDh5eB H1fPBI4TK87SO45vMWst9 W4tRS1I9MzVFKqtdwphzv daGC9DJYpHMSy uY52yDYwIYznCk1lq7U7z 043FAEtQNWdtB48Jc5cyB dzFPZxvAOIiK8lrruoi8h vcjogIzAwMDAw QLi5TRv0OYVpnXzdYnRdL RF9JoS8ERI2mRGttB4usT keubvlbK9pBni+NjYgWWV lxiY4H0WnCwm1 EDRqfLlxIL8ktBTgDUhcO a2gyEbwiEybPK0aQYVxdr quRDUfvF1lSNMrdEOsyGb qED0cGZIgjdjd l998OgRyYIB5OZHvxJSqJ 9PbuM4bRoPlAILcKWYgH1 SrbDPzKAljU314NIziPuF 2IAZdqpGqO6Dy FMWabWrcAuQ7k7Z8Fu5VR YsmAC97HA57mPHsh8U0jY G3U7DzYZFnrlapwrlysTD 6TEDoFMDzcN84 yAWzRBztSm3cx8U9j720F QVbHRUffN11Wm3eaRugYS SviVRUqL0xuvppp4lubwf gIzAwMDAwMDt0 QZr0PPZicRdiXoKyTKB9T iU0LJC5qQZauI8bkQbjgq jkgU4gFwx+CE7auWckwC0 rkT7OFP7oFZHs iZYKtYDqMZG1RI40GK52B 3RyPjwvdGFibGU+PHRhYm xlIHdpZHRoPScxMDAlJyB vgYdzEZ6dTj2q ZGVyLWNvbGxhcHNlOiBjb 9apAXMfUKwiGW9erObhI7 KpeUQ2OAFmn6r1Cw27T91 bR0HctKU+PGNv nRL7pIM3uI9jMxHzJnG8I UcfF145FoOvuCAfIisan3 sbc4skzLu4ErKrSHLukpD hxKucTFA3s8Tv Jq97I15sWDxpTLTyOFBgO COuWTHthAibrt3hjS0gTp 8+FZVquIE3uLN2wX1wIwP yMtC3GWnaS885 KlMvbNTeAmuyQ26pO4Kyr XA+ZWJnGuf7KRWnqRtcYY 3avWPnQPkyMi1fCUK8BgY lLhLtODwoK9Xc GOLtkkcgaelrtOP0IOCgH WGhvC00Yj9phYgmKu3bBP UiWKK1UIBznNOtD8OmeW5 yOiAjMDAwMDAw P8QtfKGwGMywX797RRsvJ tT2QZEaxrNiC9NnCPWeeV hmRkF1r8P6Fs8WkQrnwQS yLT7vApOoLFv2 F4UsRyo7QULrjXvbLS6wq UFaWXnbEu9yqOmmxSutHT 3iUJHxkbgqa908BqIwe4q kIDEwcHQgVGlt JFG2R09vt0V3YENnOFCfN BC5aYG8vW9adYnctgcowJ VmdDsgdmVydGljYWwtYWx lG723TOTotRty IxNJPke9J1VhFkq1RSYyp GnnYA0uzKAlCSceVq5cdE etgZkkTP5fWCXyaqnph22 7QsWew0mfNULg nWArNHlbSXN9B35wl9V3O IXqKBHyAYO1mMC1bO8bmI lnbjogbGVmdDsgdmVydGl uDValALywB032 HDGfgKtiKt0CKsq1G8WmG ta1SJTepHfrFE0tiHOkQU zxCe9buBruqNlmJN0iHLL fgnysf285ZmAd d8bmBRPbyJFxSMntZXP4X 53ih6F7YXDrDLYfOKU5sH O9vC4pgOafkmqdvSWcrJf gdmVydGljYWwt EFjrF303GSDdrOiuXbPxv WVyOjwvdGQ+IE85qo88M3 DvMejbWfx5JXSzXXQ0xUX 5fG7lHGBcLIbc c3R5 (more content not included)... [facility] Main OR Intraoperative Recor don 07-09-2022 Main OR Intraoperative Record IntraOp Document Type FT Summary Primary Physician: Milvia Palomo MD Finalized Date/Time: 07/09/22 13:38:52 Pt. Name: EUNICE MARTE/Sex: 1955 Male Med Rec #: [id number] Physician: Milvia Palomo MD Financial #: [id number] Pt. Type: A Room/Bed: [facility]12/20 Admit/Disch: 07/06/22 10:08:27 - 07/06/22 17:20:00 Institution: [...] Blanco DO, Scout Palomo MD, Milvia Correa COMPUTER TECHNOLOGY INSTRUCTOR, Mahsa Johnson Role Performed Anesthesiologist of Surgeon [...] Erik Lynn RN, Kimberly Y Role Performed Model Maker Firearms - Primary Model Maker Firearms - Primary Time In 07/06/22 14:55:00 07/06/22 14:55:00 Time Out 07/06/22 15:17:00 07/06/22 15:47:00 Procedure PROSTATE TRANSPERINEAL PROSTATE TRANSPERINEAL BIOPSY WITH ULTRA(.) BIOPSY WITH ULTRA(.) Comments ORIENTING PRECEPTING Last Modified By: June Pandey RN, RN, Kimberly Y 07/06/22 15:47:47 07/06/22 15:47:47 General Comments: PADMINI Leonard FORTRY REPQuinton NAIK - PERINEOLOGIC REP. JOSEPH, cuff maker Protocols FT Pre-Care Text: Implements protective measures [...] and tissue Entry 1 Skin Integrity Intact, [place], Warm, and Skin Abnormality No Dry Outcomes Met? Yes Last Modified By: Erik Lynn 07/06/22 15:10:56 Post-Care Text: The patient is free from signs and symptoms of injury caused by extraneous objects Patient Positioning FT Pre-Care Text: Identifies physical alterations that require additional precautions for procedure-specific positioning, verifies presence of pr (more content not included)... [facility] Postoperative Documentson Postoperative Documents [id number]#1 .00CD:127 [facility] Coding Summary.on 07-07-2022 Coding Summary. CD:[id number]:[id number] G h0bWw+PGhlYWQ+AF7NAEM fA64pvPEbeN7JN3dBUA0H IFHYEKJFJE1QGH1zoPH8N XpfU7XqdxTw AzjhoCChHX01DIm3SFJ4c FehBNbxhE9syNGlU3v6Ut YlSX92tP68DFetHZWvRnJ 3LjZpbjsgbWFy G4rbCpOxuJCgOqe+PHRhY mxlIHdpZHRoPScxMDAlJy RimJesLN8xMt4yXEAaIFD vbGxhcHNlOiBj b0hvTPEzGXmwHB7baJwjN 7LtdFY3BUFgo1e0De64qH I+JFLcYOL0xCmhVJugr13 0LjFut8zoYFU0 fFAoSSzkPUO9V06iy3V6S KJjJTUnIPB7gPX1rF5ysX zniqwrH2FibJZiKxV1EZL 5sALydZ6vxQji slfdwS1rVnv+U63YSX9KD VRAEE2WPms6O7ZwGjizcP I+ZG12SBTwHJ58bNJfdGC rz7ubrEv2NuTs PHSsCVG6uDweMEdou1AlT TPgL63akJFyt0R1VXGecB qcoIZkPqFunUH8bH3wDDm ikfcpy3fqtsyu Tuput9lpdl55cB42B38mQ DokFHDlLAM8YUJrBJFkzU wyky2nsH3eOm5+ABwms8n vg6jqeWu9ByDd PWWoouVvjJijEQF2v3QkM k85O5AbkXgxp5AyTfj2jb 99yTAvw7Y9tHF2UOieOTT vqE0rGHdgSbM1 JULfOnGanI39vUAyCSegW z1cgHrzpWwqHW6zJWUtuu imLKRlyR5sGNHrpQIlxJv iIL0xBPEegiaa o657WuPxNZT9JTNbbPQpH 0LjqB8pMtFlZEQvALImB4 AllQGkSCkcI857PIqpRzX 6XGPbwyMvT7Hd RMTxnKgpQsY7b8S5Xn4Pk 0WhohtgBUC1QKycJHYfZp N0EfWeMmI8H4CrIud2GEL jnGjgMX5uX6Ko EHKidgjnissrdXB0OJMlM YRxcS26nBXkTGupAf6kk4 H7g627KKAtTQLqiR67Wj9 udDogMTBwdCBU wP6urumxe9oxjgevQuTqZ EDfQQg7JCr8HOLirKxoKq RdMLH5UgM7QPH0gLIyrS2 wsNkeymqaqH5l Oyc+E34qoW5wZAJ2GDW4i lqlYSVcgwNuVB94SO52B7 RyPjwvdGFibGU+PGRpdiB oyCmdSR5qAbYd y9scv7HrUHgkX4EzADUuN AfbQyq0LSNwOTY8eLD0eC 5yOGIiIFyhy6S9tFL2R7R ejbWbpz5nb1ru BLBfAMjxF30wxINwt4V6N PCmbZJ6UTVjpYkcObGhgX 93Oyc+UWZddVfvh4AqFit tn4rve1zmkMe4 SuCeRTWognDkpOelWYP5n 2BeVj65W19zBAzzNSKkTV KrTHOkKMVqwGsgmv7ezU4 wIi8+PGNvbCB3 fOD3mP0tEVSnBbG9FAwnP 601IeRuoFUlAygut9ogz7 mkyOb3YkAyWSIeymQtxZj fSER0e6SeLn16 V05wRLxuBFXjOXCoTTDnL LTawSsyyx1jyY7xWi2+PC 1iz0ntyi80yR35hIV+PHR uLSU8oBoaCZqj ADDkjH5iKBzaDoS7ICKtE cLuwW37jKBeVBppQt1moE vqcJtdJE1oJDWieagrx97 9NaBuu2jkOGIf nIYvCMzmCKF2R83ex4G0L HGwSDVnYBU2xNH3kA0qxD lnbjogbGVmdDsgdmVydGl eFEcjDJusV797 IHRvcDsnPlBhdGllbnQgT vShPHm7X7RaZhe4YTAzrC dwSA5beIBhNQogHw7bbSs yrEnjBA5jCKSk vlalc546VfAgz6isQPGvg FOiRMrcCEC6O71gz0D1AD NaLWVmDAQ0aXR8hW6auOk nbjogbGVmdDsg zbTleHacJLmrIVibA891O HRvcDsnPkJpcnRoIERhdG Y3MQ03KV22aLQuj8Z8aDO 4N8KeHXTsieuw qlumcUT0PLXsSKFolA89G e8iwWziHw2jRBJuTYY4LQ NycAUeP1MjbG8xXjLjNPO gRJZxE2RpvQRr XKcwV750PWstPkM6THDhq pYiL4CmNXIgcNtaMvP0e8 H5Ik1MM2L6DZ20WY28eYW lm6A4kWH6N6Dx IRJutzbsqhxvmHL4GMWvD XQveE62Gz4gqNgyHa1wET LxRLD9JLAhkHOcA6DtmP7 yOiAjMDAwMDAw C1LvqTMvSQrlH592CKjmO vY5PORhfyCqD7VbRNWiaK aiSbH3x4D5Ga3LIGr7VF2 9FO22lTTer5P7 nVO0S0ArVZRuoqtpktene WL8QNJzWIBsjS65Vv4jaI eyHl3lGKLuOQF2KNAnbQA eJ3WzwL4dIeKx HSFcKMIvL2UgyQNkLFfvW 877OWvfBgR3BWUiyxIxZ3 BnBDOlzCsfNxY6t5N4Zp4 BKYViFI97HML8 jHM9CX73TJ85M2RiYxoqv GFibGU+PHRhYmxlIHdpZH RoPScxMDAlJyBzdHlsZT0 kVk9oBHWdMDQg nFydjVQxLrUde9gdDTKlK SmqNF3jtIddK8QmnDI2JM Tgp9y4Oq35E32tJ1PhnRG +IIDabOH0fGE4 jT4lWoOwTfV9KZnqT323E sZhqDWcTmcvr6phz7eehD j3OmY8MNVyzaLscTcgIQJ 8x8GkXl79P24m IHdpZHRoPSIxNSUiIHZhb Fchdv7lbR0nOn6+PGNvbC N0gKH3hK6jYiQtEnZ6IOr eF581YoOzmVNk Gslba4ame9dglOj8XcQzT KXkfnUkmPziRRY4j7HiJh 60S2LudQvjw5JoIkb7db0 1rKUrl6T4jGM0 F3MiWXXryvvlyOPfyTfgU V0cKBGinqvmAEQtxZ9sFN EoY3z8FpMeHpF4DCntT3F auwO0HFVnrBRj GWryMZI6U41ab8D0VGUzT PUdCCI2kIM4nM9kuBoazr ogbGVmdDsgdmVydGljYWw wRYhzA369UAGq fOazXSQihR7oKEHxhWGmz NzeAE0iQAZcjzbbJxsCGA RFTEJVUkcsIEpBTUVTIFI 5L6SdJfn6FWUg qXkdIY5cyZWzMQqwNn4xz WhwgHcbAR3jYGYpfpnfZO MhvH7kONRpyTQblSqiTM1 uTFTbpglua509 YqYzCHE9CXJgqAPaF3Avy X7gWkYwFCTlGNRzX6DlnG MvDIawL339EBwbOoL1RWU jxuEdH3OfZREp aYrhQwL7g6N2Gk0uBd5zX I1sYNJ1XB14FN64aAPgt1 W0rCU4J7VnMJGpnnorvjb dcNM2YNDnZJRz sU42nNXjFRjcSm0zx9P5n 761CWMkKILleU74Cn5bqS ujFNBggFGQsX6vazwuj1z vcjogIzAwMDAw QIp8NPc5KVIscJiaYnHzT PO3ZpQ2REM5yKKzpO4vcL gihpjcrC5pNet+NjYgWWV glkB3J7XoHtw4 HBTnqIgkQL7dwOXgXYvgN i0ueNtafWjsUX3qUIKjwi bwCLBgcY8sTWMzdKUynTe rYA6tOVVnkjvr g538TrSlXMT6BDImkADhN 9VrtT0iTcJhNGCiBYRtA3 XtqEZdJWqxY374NJdbOqS 9PQNtlzCaJ2Hg PVAosTruDyV2f6A8Nf2GI ZbjFB59RM16yDXrw6U5tX Z1C6PxNVLfzbezbqrsvKU 3JPUmRRRznU78 bGKdDOgzFi9vl4R6l716C OJoAIVkgW32Ez0ehMriFH VlpPCIcV6cvcdjm5ztxil gIzAwMDAwMDt0 GKy9QREbbAdaQfOcCCM0F lW5TLB0pTEnfU4xkRihdo jqfU1gIvd+N1V4qZD8sGS udDwvdGQ+PC90 it39Y6EpYlqzHgh2VWUrS CC7sTA8vJ1eETJhQFxup8 C1uVB8Z6CvkfEiej6yy8k fFERwFHibN42n pSHcu8E0CGQhrPD9VZUqd OfnUiPmeL03Aur+PGNvbG kgx7XrRjfib0gfy3pxqTx 9IjMwJSIgdmFs iHksXNO4c0TcZr98A16iH HdpZHRoPSIzMCUiIHZhbG xcgs9jgH8rXs8+PGNvbCB 3zUP9kI8aQqYf MuI6EHffY587FmQvmJBpH kegs1cvw8blgQu2PjQuCW LaphAutOjvEZF8o3UaDy1 9J4MhjYqrx1Mn Wue3rw68gHYtd9Z7kIA8N 3BhZGRpbmctbGVmdDogMC 8sGQOacgkrBDIoxL5yBKV xV2b7IsToFcV6 TYniX1FkntF9HRBxpGGcY FRzlXLZnR6nkfjar4iwyy tyXfFgUVSiEEx2VHz1EKZ saWduOiBsZWZ0 KsW0ZQC2zKIprN7jjGgyx qsqdF7dZbx+DSw2w5awfS PpBV6cyGR0NG02XW63gVJ nx0S5tMM9H9Ne FYDjxmkvpuqkaKM9OWLfW EMbaX28Fj6qqVrdNd1iDF QvGVL5GEKobBOcJ7FfgN9 yOiAjMDAwMDAw M3GsuQIaYSftW911AAdiB bC5UJIqphXuB4OvKJZklI weVqA0v5G7Qo7IXQ70YF1 9IO14yWUkv1X2 aEC6N3WbFFSrfhkxsnbgf OZ9MISwOIKpaK01Xz2tlM jaKe7qREKtERE1XWZdgFB sN0XxbI3eHgDm NUMyJBYxK7ImjQZmKEkgK 252CEgkPnS7GEEtmxJbK9 BkTFXuyYsfGbQ6d4T0Uc9 LBv64EK76EW12 pATxe1S8lVH1D0OxXZKtk ujqlrtgaRU7SUMcMXLmjI 85Qs3zkNudLi0dWQPgLYP 0EWQysKLzM8Jp fE8tAlWbSQFfHLPsV7Zyf IUiRYteV119UWqkBfR3BQ OnerMvO3ZmCRBtaCkmVkC 1z2Y1Cj6OLOfv txo2R3GhExzkwZI+PC90Y ZBaGX61wCXezVRgt3cbiD a3ObVgEHMoUZW8tEkrILm xs0OxSNKvD63u bGFw (more content not included)... [facility] Consent for Anesthesiaon Consent for Anesthesia [id number]# 1.00CD:127 [facility] Consent for Procedure/Surger yon 07-07-2022 Consent for Procedure/Surgery [id number]# 1.00CD:127 [facility] Discharge Instructionson Discharge Instructions [id number]# 1.00CD:127 [facility] IntraOperative Documentson 09-06-2021 IntraOperative Documents [id number]# 1.00CD:127 [facility] IntraOperative Documents [id number]# 1.00CD:127 [facility] Preoperative Documentson Preoperative Documents [id number]# 1.00CD:127 [facility] Preoperative Documents [id number]# 1.00CD:127 [facility] Prescriptions/Work Noteson 09-06-2021 Prescriptions/Work Notes [id number]# 1.00CD:127 [facility] Capillary Glucose POCon 06-22 Glucose [Mass/Vol] 216 mg/dL [facility] Comment on above: Result Comment: Jluis luna RN/ Performed By: #### 2 [id number] ####[facility] [address] [place] [address] Glucose [Mass/Vol] 233 mg/dL [facility] Comment on above: Result Comment: Jluis luna RN/ Performed By: #### 2 [id number] ####[facility] [address] [place] [address] Glucose Cap <20 [facility] Comment on above: Result Comment: Repe at Test Performed By: #### 2 [id number] ####[facility] [address] [place] [address] Consent for Treatmenton 06-22 Consent for Treatment [id number]#1 .00CD:127 [facility] H&P Updateon 07-06-2022 H&P Update [id number]#1 .00CD:127 [facility] Inpatient Patient Summaryon 07-06-2022 Inpatient Patient Summary [place] [id number] [facility] Clinical Discharge Instructions PERSON INFORMATION Name: EUNICE [...] up: With: Address: When: Milvia Palomo [address] [place] [address] [phone] Business (1) [address] [facility] [address] [place] [address] [phone] Business (1) Comments: Office to followup appointment in 2 weeks for pathology review Type Location Start Finish [facility] 07/21/20[facility] 9:30 AM 07/21/2022 9:45 AM Confirmed URO Office Visit [facility] Sujey 10/12/2022 10:30 AM 10/12/2022 10:45 [...] needed Other (see comment)., skin Comment: [facility] Laboratory - Chemistry and C hemistry - challengeOrdered By: Lab CHERUser on 07-06-2022 Glucose [Mass/Vol] 216 mg/dL High 55 - 99 mg/dL [facility] C POC Subsection Comment on above: Result Comment: Jluis luna RN/MD Glucose [Mass/Vol] 233 mg/dL High 55 - 99 mg/dL [facility] C POC Subsection Comment on above: Result Comment: Jluis luna RN/ Glucose [Mass/Vol] mg/dL Invalid Interpretation Code 55 - 99 mg/dL [facility] POC Subsection Comment on above: Result Comment: Repe at Test Main OR PACU I Recordon 06-22 Main OR PACU I Record PACU Phase I Docum ent Type FT Summary Primary Physician: Milvia Palomo MD Finalized Date/Time: 07/06/22 16:28:27 Pt. Name: ESTUARDOEUNICE/Sex: 1955 Male Med Rec #: [id number] Physician: Milvia Palomo MD Financial #: [id number] Pt. Type: A Room/Bed: [place] [address] Admit/Disch: 07/06/22 10:08:27 - Institution: Case Times [...] By: Chen Ramos RN 07/06/22 16:28 [facility] Main OR PACU II Recordon Main OR PACU II Record PACU Phase II Document Type FT Summary Primary Physician: Milvia Palomo MD Finalized Date/Time: 07/06/22 17:20:35 Pt. Name: EUNICE MARTE/Sex: 1955 Male Med Rec #: [id number] Physician: Milvia Palomo MD Financial #: [id number] Pt. Type: A Room/Bed: [place] [address] Admit/Disch: 07/06/22 10:08:27 - Institution: Case Times [...] By: Yissel Arellano RN 07/06/22 17:20 [facility] Main OR Preoperative Recordo n 07-06-2022 Main OR Preoperative Record PreOp Document Type FT Summary Primary Physician: Milvia Palomo MD Finalized Date/Time: 07/06/22 15:10:00 Pt. Name: EUNICE MARTE /Sex: 1955 Male Med Rec #: [id number] Physician: Milvia Palomo MD Financial #: [id number] Pt. Type: A Room/Bed: [facility] Admit/Disch: 07/06/22 10:08:27 - Institution: [...] Signed By: Erik Lynn 07/06/22 15:10 [facility] Monitor Recordon 07-06-2022 Monitor Record [id number]# 1.00CD:127 [facility] No Panel InformationOrdered By: Lab CHERUser on 07-06-2022 POC Device SN [id number] Invalid Interpretation Code [facility] POC Subsection POC User ID [id number] Invalid Interpretation Code [facility] POC Subsection POC Username SD TANNER Invalid Interpretation Code [facility] POC Subsection POC Device SN [id number] Invalid Interpretation Code [facility] POC Subsection POC User ID [id number] Invalid Interpretation Code [facility] POC Subsection POC Username SD TANNER Invalid Interpretation Code [facility] POC Subsection POC Device SN [id number] Invalid Interpretation Code [facility] POC Subsection POC User ID [id number] Invalid Interpretation Code [facility] POC Subsection POC Username SD TANNER Invalid Interpretation Code [facility] POC Subsection Operative Reporton Operative Report Patient: EUNICE MARTE Age: 66 years Sex: Male : 1955 Associated Diagnoses: None Author: Milvia Palomo MD Procedure Procedure Date: 07/06/2022. Confirmed: patient, procedure, side, safety procedures followed. Performed by: Mivlia Palomo MD. Type of procedure: 1. Transrectal [...] perineum is prepped with Betadine solution. The [facility] UroNav fusion biopsy system was set up [...] . Impression and Plan Diagnosis Elevated PSA (AUV20-HW R97.20, Discharge, Medical). Diagnosis Elevated PSA ([id number]-NB R97.20, Discharge, Medical). Counseled: Patient, Family. [facility] Comment on above: Result Comment: Elec tronically Signed By: Dewey COTTO, Milvia Lucia\.kong\Date and Time Signed: 07/06/22 16:17 EST Outpatient Surgery Discharge Instructionon 07-06-2022 Outpatient Surgery Discharge Instruction [place] [id number] Patient Discharge Instructions PERSON INFORMATION Name: EUNICE [...] Address: When: Milvia Dewey [address] [place] [address] [phone] Business (1) [facility] [address], [address] [address] [phone] Business (1) Comments: Office to followup appointment in 2 weeks for pathology review Type Location Start Finish State URO Office Visit [facility] 07/21/2022 9:30 AM 07/21/2022 9:45 AM Confirmed URO Office Visit [facility] 10/12/2022 10:30 AM 10/12/2022 10:45 AM Confirmed [...] to serve you. Thank you for choosing [facility] HERE ARE THE MEDICATION CHANGES THAT [...] Tylenol alte (more content not included)... [facility] Patient Education - Texton 1 09-05-2021 [...] for your post-operative appointment in 1-2 weeks [phone] or [phone] [facility] Progress Note-Nurseon 2021 Progress Note-Nurse In [...] out of the anesthesia guideline protocol. [facility] Progress Note-Physicianon Progress Note-Physician Patient: EUNICE MARTE Age: 66 years Sex: Male : 1955 Associated Diagnoses: None Author: Scout Lamas Jr., DO Postoperative Information Post Operative Note: Post Anesthesia Care Unit. Anesthetic utilized: General. Health Status Allergies: Allergic Reactions (Selected) Moderate Penicillin- Unknown. Severity Not Documented Labetalol- Unknown (origin). 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 Elevated PSA / SNOMED CT 8815328272 / Confirmed Eosinophilia / SNOMED CT 4251369038 / Confirmed Erectile dysfunction / SNOMED CT 3558545194 / Confirmed GERD (gastroesophageal reflux disease) / SNOMED CT 771364118 / Confirmed Hyperlipemia / SNOMED CT 48896347 / Confirmed Hypertension / SNOMED CT 3266636643 / Confirmed Incontinence of urine / SNOMED CT 9405198581 / Confirmed 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 Plan Transfer/ Discharge: Condition stable. [facility] Comment on above: Result Comment: Elec [...] Daily, # 30 tab(s), Refills(s) 6, Pharmacy: [id number], 183, cm, 04/21/22 11:40:00 [...] 0 Histories Past Medical History: Resolved Stroke (232406982): Resolved. History of CVA (cerebrovascular accident) (3950686165): Resolved. History of DVT (deep vein thrombosis) (9773935063): Resolved. Family History: Diabetes mellitus Mother Sister Hypertension Mother Sister Father Diabetes mellitus type 2 Mother Hyperlipidemia Mother CAD - Coronary artery disease Father Mother Procedure history: Transrectal biopsy of prostate using ultrasound (US) guidance (2713892457) on 09/08/2020 at 64 Years. Colonoscopy (099315405) in 2012 at 55 Years. Arthroplasty of knee (47589506). Arthroscopy of shoulder (122310414). Insertion of catheter into spinal canal for infusion of therapeutic substance (8069097979). Lumbar discectomy (719381033). Comments: 06/25/2022 15:29 EDT - Lulu Peralta LPN L4-5 CE - Cataract extraction (8948059086). Social History Social & Psychosocial Habits Alcohol 06/25/2022 Use: Current Type: Beer Frequency: Daily Substance Abuse 06/25/2022 Risk Assessment: Denies Substance Abuse Tobacco 06/25/2022 Tobacco Use: Former smoker, quit more Smokeless tobacco use: Never (more content not included)... [facility] Comment on above: Result Comment: Elec tronically Signed By: Scout Lamas Jr., DO.br\Date and Time Signed: 07/06/22 14:09 EST Outside Radiologyon 07-05-20 Outside Radiology [id number] [phone] [id number]# [email or web address]:127 [facility] Coding Summary.on 07-02-2022 Coding Summary. CD:[id number] G h0bWw+PGhlYWQ+WN8IYQW zJ13jyHHrdG2JX0tEHX7H YMSJWLNWLV5ECP9arWT0G KmgE4GycwRm ClnrhWUuKW96TYp2GDC6t IybQSnciH7ptVNfY7p9Cy ChYE96gG31IRpbBKSzOwD 3LjZpbjsgbWFy M5trRkTsbVGsBqg+PHRhY mxlIHdpZHRoPScxMDAlJy UdtAejMD4zDm5nIRJrVIQ vbGxhcHNlOiBj o6eyFJDmDHbpNO8bfCtaM 8QgdWI9EHPkl9l5Bb36yJ I+RNJhEWQ9hKevAJoom50 9JiSto4jkAHU6 zJMdKGqoHIX5B82it6R3Q BLdPMRpSJS9vQX9yL9thN oxktufT3XanORgTuM7IFU 6xEXvqG6mdGsg fjhboL9aHof+F82FCU3RB IRGFV2KVgn7H0RiPglpqS I+BA33AUYbMP39iLPxjRT xc1dseJo7SoTh BHIwZHF3nGkqDMdeq2GoR EAxU54akBPol8O5ARFewD ivqBWlKyFwpWO0wT6pYIg dgujks6sbttgs Ribqk0djtk03gU58M88dO LqzEPWmGUV5AUIuXRBfqR xzdn8uaE3rSv5+CDsvr9s fr0hcrPq2YkSr MIYizeHrhZnvRVK4j3GyJ a29U6KczXtid9RyXpx5js 69nZTov1R6fGK3JRfgMVJ ngH5qINlzLwQ3 NKHdQtQqmW67tVMnHVhyO e8nrRbpdGwdEX1kVLEyhz whQLYmvJ2wMXWzeEIwdZc oQB7gJRTjyfqz f100OtGmWHH5PRQluTUyA 2KpjH0rZnAeXFDuUMKaS1 ZlzYKkNOffA298ODezQqX 4KETapxDuP6Rh ZBZplGoqAdO0c3N1Ve7Fp 8FsgrkmLML2DBpxGZJnFp TkGbVmVqF8Z5DyUan2FPV jrRjqUJ0yR6Sf IGYepqkcdzztdZV3RYQwW SJseQ41nNYlMSkbDn7ux9 B4a920AYAkOFQknP89Jb3 udDogMTBwdCBU tZ1xakncs1efwadiQnVcS VHkPTq5PWi4AWMgzNofDf WdSNM1BlD2MVH1pJIytY9 egLnikgizzV7l Oyc+W38xaR6yDQR7RWM6l iwzQEPaabRqHR00VA24R3 RyPjwvdGFibGU+PGRpdiB ddEplCG9wQaYm y0txg6UwTVdaN7MwJSMaT GxtUfe9UOArHML6hFI0wO 6fICGbBPwmk7K2gJM8U8J ntoPyzx6db2xu SDTmWBxgZ89nuVKho6W5T IWjjRQ1NWIaeKzqPdSkoP 93Oyc+RREmeObhd2AxMnk ao4npf7ohiRs9 ZdPlFDSljoJsdYkqFZR4x 4BoBz70C24dDKjnKCOpNE PvCRPzATHhdOkkza7oqW5 wIi8+PGNvbCB3 vZI0wU7tHHVbDfD5LCehO 367HfAtxINtUayxe9sun3 djeQu7OdBzMTUwmmUniQy fSLW6t9NqXu82 C59mLZkcWNWxKTCrPGVlD SOzwDqcbt4ecD2vSy2+PC 8fe9zjgd79lW16nGV+PHR wIVH4pBuiOGwj TKKosA6sLDxePeN2BFMwB lRlvB73qVEgXUfvPj0huQ kytEciCL5wQBJgqzcsk59 6RaTae6jxGNQw pADhURlaKKZ5A09lj8A1Z VQnOVTxBFJ7vMA8tD5jvK lnbjogbGVmdDsgdmVydGl rTTycCPqlA307 IHRvcDsnPlBhdGllbnQgT hDtYFj8A7AnYuv9OZTmtW puFS7jpHOcBNtkCg2tiGf rcZvqXS0nFQBc eblns027GqPml4ovJOGqy HJbPFmwEWB3Z36zo1C2TU RgGRVzQVZ7tUT6yY5quSc nbjogbGVmdDsg vmLdsTzbNAqvCDmsB362Q HRvcDsnPkJpcnRoIERhdG V7FY49MZ20pGRyk4E5nTR 9L1KxYNYqzesh nvehaQA8RDNbLCSzbW79T e6pgQjyKh8cPHNdICV3EF VnjWVjW3EfsF0rPbUzPNQ aGHOaB9ZpkIRh BVieQ890WBjzReG3YABoc eKvY3DjBGXbzMisNaI9z2 G5Oj5EV0V1VF24QE37kYJ bl8Y5kLQ5S2In ULNbxbjsmsxbvXG7JKLnJ KBkbS09Fy1pqZcqBm8lOE PcAEJ2GPYqfMDvC5LilN9 yOiAjMDAwMDAw M8OxoLEuGRerX522RWsmY aM4HLDuwpGgF0QtRZZrcG tyTnB2g2K5Nd2NSCm6FA1 2EW21yDXjx4S1 jKP6C6CjCXQesysmdezqb GX8YFEwOOYyyU95Wb1wdJ vzNd6dJYGtYZA1HGKhyQT yN1DgyM2jFfCd OYQaRCSvK0VhcBWmJUmkH 724TSdtBeM8MHVnlyIoZ6 TaAFGhxGpzJiA1t9T2Av3 VBXDrUF71IXO7 fZM9CN27UX17I9SoGlulm GFibGU+PHRhYmxlIHdpZH RoPScxMDAlJyBzdHlsZT0 tNv5aEGYrEIJd nDrfjSCePrEgp0rsSWCpU NkxSF8joUrlY7QkrTW1WP Rkc3g7Ov78L97cD5VgzIR +MDVskZK7kAZ3 wK1xCnBuQpB8JGgvE287J eFcqKQfAzlgj1ecr1qwoB k1FnL2YTQnxqLbbOboAZY 9i2UwYs15I95c IHdpZHRoPSIxNSUiIHZhb Gjizo0geD4tDo1+PGNvbC F7yHI6zP1iTrPhMkV0WBg uP876XlCaiXZc Oiyah2uht3kamWc8TuTtS HHrgbWvuVkdZKP4c4WmCa 00A2PewKqzo0IzCck7ah9 7sHGrm8Y1gVC9 B9PdDUKmqhctuOJwtIcbJ T5pPLWjeppnRZGgiM2iSO DqI6c3JxTcSlE4OMlaO1E vayT1WUIaoRAm HPxyHWV0S92xs7A3YLMyA LHeDES0mVT6aG0jrYhomq ogbGVmdDsgdmVydGljYWw rHWyuU366IUJj zWpzLILopI9fUEExcXUep EqqHR1dRUFuviinCqlSCE RFTEJVUkcsIEpBTUVTIFI 7J8FdMll4UPVt fDjtFL6tsDNnNSjxJj9ll FyyeXkfAQ7iVOWjwqxbIK RwnG8oGYIlaKQfxYruYD8 rXQMsotrqk011 TwPqRXT1CGMquAMhR6Uvl V5aYoCeEZNuIKQnF0FuqD XeGAwbJ568EWgzVuW8FQD zvoUuU2RjEUXi gFowQkW5r0Y1Dk0kPs8dE Y9uRHS6BA45KC49hTQtq9 T7lEU2A6NuENXfvabsxsr gnUJ0TTLrPFCc lY20rDVpEJvdFz8xw0L4t 681QXHwWEZwvC80Ve8spU bjQMAiqOBGwH2ounxmm0c vcjogIzAwMDAw YFr3DKh4MVZqlBpiJiWgM CV1NdP5IMX8tATspQ2ydM qnculuwA2mXog+NjYgWWV hyeT4A5OoPma1 RVDtcHmmSK4enKGmFAbrQ i4ycXubwUrcSY2oSIFisa fxOSMklP3qIOIhpYSmfBa wSV1sPUJjglcj b151KeLbPSQ0NGTpmOFqG 7JrmG9lWjWiWDImQUUqA5 NgvQHoSTjcO695ZVvdUjE 6QVOxlxSuW2Bh FASfnZhxBrF7k3V5Ng5RT SsoBD45SK25uQDca2D2gJ Z1C5HkVPDvbmkbpimmwQG 5DYSxVCAqmC96 gIUdDElrMo0hh5H8a514V YVfQRMltJ26Xc1piIceVH EzdFXPlQ7xnjrvg5fqsjl gIzAwMDAwMDt0 AIs2KYKojLzqYlVsGFP3N nA8FCN8uSOerU8giIvale djwG8iEia+UmVjdXJyaW5 kEJ96FL16H9Cz PjwvdGFibGU+PHRhYmxlI HdpZHRoPScxMDAlJyBzdH tnNS0cYf7xJWGoFGJejLs hmVZmMjTxh5nq AIPqQUtlPL3flOciS4Ybq DD6SIHoh0x7Ux70Q55hD8 JvdXA+TFFcrXB0rRH4yH2 aElBpXeV5TGmf G940LuUlxWGhGsgmf6euo 2tacIg3RlDzXEFahsStaS sbTPS7c1AqDt29A14nCWp pZHRoPSIyMCUi KGAlqNevhf2cuD2dZy9+P HBoaCP2eEB9pU3dLvJcAn C7KCayV276YrSuiDHsFwi zQ76lR3PxsEG+ YAKiXef8XQAcqHxtGY3yf EQzLFoxZh1iSZY4UrUeIb HoDWvtM7AuIXAiimiihlt ycRO1YINsZCLz hK57Mh6auVfuUv3cWJAsN VO7KWElyALnG2CevA4rVk NgKXWaUOVcL3GzsRQxWGo kA229CFmvBkN0 OWEfqdRzF7QqFRJwwRmaA zR9t3Q5Eo4GfEbmxKEaPA 4wPiWyYOs0G5ZvKhh9HDJ qgGelWR9ilRRk NBzlRa2tdCozhMtcUT9mI QPnqmmsi878RaUeq2kjMF JqzHBtKGqrYOC1O33qo2W 0WQBjXVZdKUH1 bXS4dX3ipGzzjprppQUuq DsgdmVydGljYWwtYWxpZ2 05EYMbtEbbXwRTVqy6J8B kOek8FJHjeIot OJ3fsDEeREbmFc6itBatd ZcaQA8sXWXyhgdlv488Gt Mdm8nlIECpjWVrOThwRPS 9W37es8E9GFAk HCWqYSM2iOH0hW9wwMjpx jogbGVmdDsgdmVydGljYW zhMIkyI889AODkzMzbQj6 PDpu4L1OkXnl8 MOCeyYtvZY0erQPdQCojU d9vmXahcZtnLA7cPRAhtw lhl227JcQyj8ejNHThaTS cIXqpMJQ7M55g f5X9GGAzLSRtYNR8rAM3b E1elUckqxcpfLJfjChhba HbjBqaLOtvDKcsB572HIF vcDsnPlBheWVy OjwvdGQ+US58mu99Y1TqP xzpIwd6ZZXwQPS8vVD5dI 5pQFYdLVhvt2P4sMX8Y8B xhnJhgl2hj1xi YXBz (more content not included)... Normal [facility] Auto Diffon 06-30-2022 Basophils/100 WBC (Bld) 2.7 % High 0.0-2.0 [facility] Comment on above: Order Comment: Order Added by Discern Expert. Performed By: #### 2 145737, 38552349, 7439242, 4433685, 82268769 #### [facility] [address] [place] [address] Basophils/Leukocytes Auto (Bld) [Pure # fraction] 0.2 E9/L Normal 0.0-0.2 [facility] Comment on above: Order Comment: Order Added by Discern Expert. Performed By: #### 2 742841, 40362641, 3284636, 5383524, 22450478 #### [facility] [address] [place] [address] Eosinophils/100 WBC (Bld) 7.5 % Normal 0.0-8.0 [facility] Comment on above: Order Comment: Order Added by Discern Expert. Performed By: #### 2 686676, 14427365, 1753903, 9205600, 23310653 #### [facility] [address] [place] [address] Eosinophils/Leukocyte s Auto (Bld) [Pure # fraction] 0.5 E9/L Normal 0.0-0.5 [facility] Comment on above: Order Comment: Order Added by Discern Expert. Performed By: #### 2 649536, 63046479, 3360898, 2243763, 16394077 #### [facility] [address] [place] [address] Lymphocytes/100 WBC (Bld) 35.7 % Normal 14.0-50.0 [facility] Comment on above: Order Comment: Order Added by Discern Expert. Performed By: #### 2 713520, 12796029, 4826531, 4247235, 37146336 #### [facility] [address] [place] [address] Lymphocytes/Leukocyte s Auto (Bld) [Pure # fraction] 2.3 E9/L Normal 1.0-4.0 [facility] Comment on above: Order Comment: Order Added by Discern Expert. Performed By: #### 2 964403, 86309104, 0431699, 0580369, 46521129 #### [facility] [address] [place] [address] Monocytes/100 WBC (Bld) 7.0 % Normal 4.0-14.0 [facility] Comment on above: Order Comment: Order Added by Discern Expert. Performed By: #### 2 251432, 62893957, 0783889, 2705939, 89268010 #### [facility] [address] [place] [address] Monocytes/Leukocytes Auto (Bld) [Pure # fraction] 0.5 E9/L Normal 0.2-1.0 [facility] Comment on above: Order Comment: Order Added by Discern Expert. Performed By: #### 2 311304, 32353166, 9343871, 7495106, 83136733 #### [facility] [address] [place] [address] Neutrophils/100 WBC (Bld) 47.1 % Normal 36.0-75.0 [facility] Comment on above: Order Comment: Order Added by Discern Expert. Performed By: #### 2 419141, 09476740, 8621013, 5931108, 15284284 #### [facility] [address] [place] [address] Neutrophils/Leukocyte s Auto (Bld) [Pure # fraction] 3.1 E9/L Normal 2.0-7.5 [facility] Comment on above: Order Comment: Order Added by Discern Expert. Performed By: #### 2 454599, 70943217, 2123933, 8730026, 28948622 #### [facility] [address] [place] [address] BMPon 06-30-2022 Anion gap [Moles/Vol] 13 mmol/L Normal 6-16 [facility] Comment on above: Performed By: #### 2 114297, 91506575, 1018940, 0177856, 95331834 #### [facility] [address] [place] [address] Calcium [Mass/Vol] 9.4 mg/dL Normal 8.9-11.1 [facility] Comment on above: Performed By: #### 2 586442, 80469433, 2156090, 8080972, 90647295 #### [facility] [address] [place] [address] Chloride [Moles/Vol] 99 mmol/L Low 101-111 [facility] Comment on above: Performed By: #### 2 808906, 77250677, 8851785, 6213206, 58638488 #### [facility] [address] [place] [address] CO2 [Moles/Vol] 25 mmol/L Normal 21-31 [facility] Comment on above: Performed By: #### 2 747602, 37148071, 2552161, 0616184, 47223208 #### [facility] [address] [place] [address] Creatinine [Mass/Vol] 1.0 mg/dL Normal 0.5-1.3 [facility] Comment on above: Performed By: #### 2 800129, 19786057, 1118570, 8687400, 60418597 #### [facility] [address] [place] [address] Glucose [Mass/Vol] 241 mg/dL High 55-199 [facility] Comment on above: Result Comment: If t his glucose result represents a fasting glucose, interpretation should refer to the following reference range: 55-99 mg/dL Performed By: #### 2 382010, 31165251, 8272764, 7247106, 53071505 #### [facility] [address] [place] [address] Potassium [Moles/Vol] 3.7 mmol/L Normal 3.5-5.3 [facility] Comment on above: Performed By: #### 2 613297, 35286593, 2201692, 1297549, 32803119 #### [facility] [address] [place] [address] Sodium [Moles/Vol] 133 mmol/L Low 135-145 [facility] Comment on above: Performed By: #### 2 145688, 94512834, 7865369, 2723083, 18426478 #### [facility] [address] [place] [address] Urea nitrogen [Mass/Vol] 12 mg/dL Normal 5-21 [facility] Comment on above: Performed By: #### 2 883418, 64804260, 1208002, 2704699, 42044689 #### [facility] [address] [place] [address] Urea nitrogen/Creatinine [Mass ratio] 12 No Units Normal 10-20 [facility] Comment on above: Performed By: #### 2 038112, 05862563, 6335287, 1693352, 93372023 #### [facility] [address] [place] [address] CBC w/ Auto Diffon Erythrocyte distribution width (RBC) [Ratio] 14.0 % Normal 10.9-14.2 [facility] Comment on above: Performed By: #### 2 976881, 26852660, 3101144, 4745257, 61679921 #### [facility] [address] [place] [address] Hematocrit (Bld) [Volume fraction] 40.8 % Normal 37.7-49.0 [facility] Comment on above: Performed By: #### 2 251983, 76435728, 1789046, 9387483, 23881352 #### [facility] [address] [place] [address] Hemoglobin (Bld) [Mass/Vol] 13.9 g/dL Normal 13.5-17.5 [facility] Comment on above: Performed By: #### 2 271191, 56509585, 4776701, 2663400, 13616041 #### [facility] [address] [place] [address] MCH (RBC) [Entitic mass] 27.9 pg Normal 27.0-34.0 [facility] Comment on above: Performed By: #### 2 346114, 80110338, 8646183, 1189999, 82613792 #### [facility] [address] [place] [address] MCHC (RBC) [Mass/Vol] 34.1 g/dL Normal 31.4-36.0 [facility] Comment on above: Performed By: #### 2 195302, 10700226, 4173380, 5741869, 58174579 #### [facility] [address] [place] [address] MCV (RBC) [Entitic vol] 81.8 fL Normal 80.0-100.0 [facility] Comment on above: Performed By: #### 2 300834, 35955618, 1004773, 6040476, 23043869 #### [facility] [address] [place] [address] Platelet mean volume (Bld) [Entitic vol] 8.3 fL Normal 6.4-10.8 [facility] Comment on above: Performed By: #### 2 417952, 07609796, 1187226, 6656063, 64376742 #### [facility] [address] [place] [address] Platelets (Bld) [#/Vol] 191.0 E9/L Normal 150.0-500.0 [facility] Comment on above: Performed By: #### 2 980963, 75475305, 4121350, 8220348, 84996703 #### [facility] [address] [place] [address] RBC (Bld) [#/Vol] 5.0 E12/L Normal 4.3-5.9 [facility] Comment on above: Performed By: #### 2 481512, 97779854, 6664084, 7143976, 83085337 #### [facility] [address] [place] [address] WBC corrected for nucl RBC Auto (Bld) [#/Vol] 6.5 E9/L Normal 4.0-11.0 [facility] Comment on above: Performed By: #### 2 774845, 60378806, 9844796, 7397858, 40398497 #### [facility] [address] [place] [address] CHEMISTRYOrdered By: SYSTEM SYSTEM on 06-30-2022 Anion [...] rate/Area] mL/min/1.73 m2 Normal >=59mL/min/1.7 3 m2 [facility] Chem S GFR/1.73 sq M.predicted among non-blacks MDRD (S/P/Bld) [Vol rate/Area] mL/min/1.73 m2 Normal >=59mL/min/1.7 3 m2 [facility] Chem S Glucose [Mass/Vol] 241 mg/dL High 55 - 199 mg/dL [facility] Remisol Potassium [Moles/Vol] 3.7 mmol/L Normal 3.5 - 5.3 mmol/L [facility] Remisol Sodium [Moles/Vol] 133 mmol/L Low 135 - 145 mmol/L [facility] Remisol Urea nitrogen [Mass/Vol] 12 mg/dL Normal 5 - 21 mg/dL [facility] Remisol Urea nitrogen/Creatinine [Mass ratio] 12 mg/mg Normal 10 - 20 [facility] Remisol COAGULATIONOrdered By: Khalida Khalil on 06-30-2022 aPTT Coag (PPP) [Time] 33.6 s Normal 25.1 - 36.5 second(s) [facility] Auto Coag INR Coag (PPP) [Relative time] 1.1 {INR} Invalid Interpretation Code [facility] Auto Coag PT Coag (PPP) [Time] 11.8 s Normal 9.4 - 1 2.5 second(s) [facility] Auto Coag Consent for Treatmenton Consent for Treatment [id number]#1 .00CD:127 Normal [facility] Consent for Treatment [id number] 1.00CD:127 Normal [facility] HEMATOLOGYOrdered By: SYSTEM SYSTEM on 06-30-2022 Basophils/100 WBC (Bld) 2.7 % High 0.0 - 2.0 % [facility] HemeAutoSS Basophils/Leukocytes Auto (Bld) [Pure # fraction] 0.2 E9/L Normal 0.0 - 0.2 E9/L [facility] HemeAutoSS Eosinophils/100 WBC (Bld) 7.5 % Normal [...] 5.0 E12/L Normal 4.3 - 5.9 E12/L [facility] HemeAutoSS WBC corrected for nucl RBC Auto (Bld) [#/Vol] 6.5 E9/L Normal 4.0 - 11.0 E9/L [facility] HemeAutoSS PT & PTTon 06-30-2022 aPTT Coag (PPP) [Time] 33.6 second(s) Normal 25.1-36.5 [facility] Comment on above: Result Comment: Para [...] the same coagulation reagent and instrumentation as [facility]. Currently there are no coagulation studies available worldwide for children to 14 days, and no normal ranges. Heparin therapeutic range (represented by Anti-Factor Xa activity of 0.2 - 0.4 U/mL) corresponds to PTT of 56.6 - 109.0 sec. Performed By: #### 2 074930, 21024442, 4534536, 8392542, 19934168 #### [facility] [address] [place] [address] INR Coag (PPP) [Relative time] 1.1 {INR} Invalid Interpretation Code [facility] Comment on above: Result Comment: INR results are specifically intended to assess patients stabilized on long-term Anticoagulation therapy suggested INR?s ?Less Intensive Anticoagulation? 2.0 ? 3.0 Conventional Range 3.0 ? 4.5 Performed By: #### 2 893844, 00806986, 4467085, 7790692, 83049888 #### [facility] [address] [place] [address] PT Coag (PPP) [Time] 11.8 second(s) Normal 9.4-12.5 [facility] Comment on above: Result Comment: 15 [...] the same coagulation reagent and instrumentation as [facility]. Currently there are no coagulation studies available worldwide for children to 14 days, and no normal ranges. Performed By: #### 2 569731, 54957190, 0974776, 6699952, 51260590 #### [facility] [address] [place] [address] UA With Cult Reflexon 2021 Bilirubin Ql (U) Negative Normal Negative [facility] Comment on above: Performed By: #### 1 5137762 ####[facility] [address] [place] [address] Clarity (U) CLEAR Normal Clear [facility] Comment on above: Performed By: #### 1 3563238 ####[facility] [address] [place] [address] Color (U) YELLOW Normal Yellow [facility] Comment on above: Performed By: #### 1 0637951 ####[facility] [address] [place] [address] Epithelial cells.squamous LM.HPF (Urine sed) [#/Area] 0-2 Normal 0-2 [facility] Comment on above: Performed By: #### 1 7893118 ####[facility] [address] [place] [address] Glucose Test strip (U) [Mass/Vol] 1+ Abnormal Negative [facility] Comment on above: Performed By: #### 1 1081271 ####[facility] [address] [place] [address] Hemoglobin Ql (U) TRACE Abnormal Negative [facility] Comment on above: Performed By: #### 1 3267606 ####[address] [address] Ketones (U) [Mass/Vol] Negative Normal Negative [facility] Comment on above: Performed By: #### 1 9280890 ####[address] [address] [place].plasma/Lithiu m.RBC (Bld) [Mass ratio] 4-20 Normal 0-3 [facility] Comment on above: Performed By: #### 1 6920792 ####[address] [address] Nitrite Ql (U) Negative Normal Negative [facility] Comment on above: Performed By: #### 1 3251921 ####[address] [address] pH (U) 5.5 [pH] Invalid Interpretation Code 5.0-9.0 [facility] Comment on above: Performed By: #### 1 4456367 ####[address] [address] Protein (U) [Mass/Vol] Negative Normal Negative [facility] Comment on above: Performed By: #### 1 1594373 ####[address] [address] Specific gravity (U) [Rel density] 1.025 Invalid Interpretation Code 1.005-1.030 [facility] Comment on above: Performed By: #### 1 2359904 ####[address] [address] Type of Urine collection method Clean Catch Normal [facility] Comment on above: Performed By: #### 1 0324431 ####[address] [address] Urobilinogen Qn (U) 0.2 {Shaka'U}/dL Normal 0.0-1.0 [facility] Comment on above: Performed By: #### 1 5445711 ####[facility] [address] [place] [address] WBC Auto Ql (U) Negative Normal Negative [facility] Comment on above: Performed By: #### 1 6516962 ####[facility] [address] [place] [address] WBC LM.HPF (Urine sed) [#/Area] 0-5 Normal 0-5 [facility] Comment on above: Performed By: #### 1 7231181 ####[facility] [address] [place] [address] URINALYSISOrdered By: Duglas Khalil on 06-30-2022 Bilirubin [...] PM) Normal Negative [facility] UA Auto SS [place].plasma/Lithiu m.RBC (Bld) [Mass ratio] 4-20 /HPF Normal 0-3/HPF [facility] UA Auto SS Nitrite Ql (U) Negative (06/30/22 4:35 PM) Normal Negative [facility] UA Auto SS pH (U) 5.5 *NA* (06/30/22 4:35 PM) Invalid Interpretation Code 5.0 - 9.0 [facility] UA Auto SS Protein (U) [Mass/Vol] Negative (06/30/22 4:35 PM) Normal Negative [facility] UA Auto SS Specific gravity (U) [Rel density] 1.025 *NA* (06/30/22 4:35 PM) Invalid Interpretation Code 1.005 - 1.030 [facility] UA Auto SS UA Spec Desc Clean Catch (06/30/22 4:35 PM) Normal [facility] UA Auto SS Urobilinogen Qn (U) 0.3813536 {Shaka'U}/dL Normal 0.0 - 1.0 EU/dL [facility] UA Auto SS WBC Auto Ql (U) Negative (06/30/22 4:35 PM) Normal Negative [facility] UA Auto SS WBC LM.HPF (Urine sed) [#/Area] 0-5 /HPF Normal 0-5/HPF [facility] UA Auto SS XR Chest 2 Viewson [...] V. Transcribed by: LISANDRO Technologist: VINNY Normal [facility] eGFRon 06-30-2022 GFR/1.73 sq M.predicted among blacks MDRD (S/P/Bld) [Vol rate/Area] mL/min/{1.73_m2} Normal >=59 [facility] Comment on above: Order Comment: Order added by Discern Expert. Result Comment: eGFR is race adjusted. AA=. Performed By: #### 2 177895, 49551239, 4275132, 2699584, 87744490 ####[facility] [address] [place] [address] GFR/1.73 sq M.predicted among non-blacks MDRD (S/P/Bld) [Vol rate/Area] mL/min/{1.73_m2} Normal >=59 [facility] Comment on above: Order Comment: Order added by Discern Expert. Result Comment: Safety Risk Lead anderson kidney disease could be indicated at eGFR's of less than 60 mL/min/1.73m2. Kidney failure is indicated at less than 15 mL/min/1.73m2. Performed By: #### 2 867209, 79557558, 0333033, 9077324, 99221418 ####[facility] [address] [place] [address] COVID-19 (MC)on 06-29-2022 Performing Instrument FT Willie 2 Normal [facility] Comment on above: Performed By: #### 2 [id number] ####[facility] [address] [place] [address] SARS-CoV-2 (COVID-19) RNA NISHANT+probe Ql (Resp) Not detected Normal Not Detected [facility] Comment on above: Result Comment: This test result should be correlated with clinical presentations and medical history by a healthcare provider to determine its clinical significance. This assay was performed by a reverse transcriptase real-time polymerase chain reaction (rt PCR) method on the [employer] system. This test has been authorized only [...] or revoked sooner. Performed By: #### 2 [id number] ####[facility] [address] [place] [address] SARS-CoV-2 (COVID-19) RNA NISHANT+probe Ql (Unsp spec) Pass Normal Pass [facility] Comment on above: Performed By: #### 2 [id number] ####[place] [address] Specimen source Nom (Unsp spec) Nasal Normal [facility] Comment on above: Performed By: #### 2 [id number] ####[place] [address] Facesheeton 06-29-2022 Facesheet [id number]#1 .00CD:127 Normal [facility] COVID-19 (MC)on 06-28-2022 ADMITTED TO INTENSIVE CARE UNIT FOR CONDITION OF INTEREST:FIND:PT: NO Normal [facility] Comment on above: Performed By: #### 2 [id number] ####[place] [address] EMPLOYED IN A HEALTHCARE SETTING:FIND:PT: Unknown Normal [facility] Comment on above: Performed By: #### 2 [id number] ####[place] [address] FIRST TEST FOR CONDITION OF INTEREST:FIND:PT: Unknown Normal [facility] Comment on above: Performed By: #### 2 [id number] ####[place] [address] HAS SYMPTOMS RELATED TO CONDITION OF INTEREST:FIND:PT: Unknown Normal [facility] Comment on above: Performed By: #### 2 [id number] ####[place] [address] HOSPITALIZED FOR CONDITION OF INTEREST:FIND:PT: NO Normal [facility] Comment on above: Performed By: #### 2 [id number] ####[place] [address] STATUS:FIND:PT: NO Normal [facility] Comment on above: Performed By: #### 2 [id number] ####[place] [address] RESIDES IN A [facility] CARE SETTING:FIND:PT: Unknown Normal [facility] Comment on above: Performed By: #### 2 [id number] ####[facility] [address] [facility] [id number] Consent for Procedure/Surger yon 06-28-2022 Consent for Procedure/Surgery [id number]#1 .00CD:127 Normal [facility] RAD - MISCon 06-24-2022 RAD - MISC [id number]#1 .00CD:127 Normal [facility] XR ABD FLAT_UPon 06-15-2022 XR ABD [...] SUELLEN MAYO Date: 2022-06-15 17:03 Normal [facility] CBC AUTO DIFFon 06-07-2022 BASO # 0.1 103/ul Normal 0.0-0.1 [facility] Comment on above: Performed By: #### P TT, PT #### [facility] [address] [address] [address] Marcell Luque Basophils/100 WBC (Bld) 0.6 % Normal 0.2-2.0 [facility] Comment on above: Performed By: #### P TT, PT #### [facility] [address] [address] [address] Marcell Luque EO # 0.3 103/ul Normal 0.0-0.7 [facility] Comment on above: Performed By: #### P TT, PT #### [facility] [address] [address] [address] Marcell Luque Eosinophils/100 WBC (Bld) 3.3 % Normal 0.9-7.0 [facility] Comment on above: Performed By: #### P TT, PT #### [facility] [address] [place] [address] Dr. Marcell Luque Erythrocyte distribution width (RBC) [Ratio] 13.9 % Normal 11.0-15.0 [facility] Comment on above: Performed By: #### P TT, PT #### [facility] [address] [place] [address] Dr. Marcell Luque Hematocrit (Bld) [Volume fraction] 39.3 % Critically low 42.0-54.0 [facility] Comment on above: Performed By: #### P TT, PT #### [facility] [address] [place] [address] Dr. Marcell Luque Hemoglobin (Bld) [Mass/Vol] 12.6 g/dL Critically low 14.0-18.0 [facility] Comment on above: Performed By: #### P TT, PT #### [facility] [address] [place] [address] Dr. Marcell Luque IG # 0.02 10e3/ul Normal 0.00-0.03 [facility] Comment on above: Performed By: #### P TT, PT #### [facility] [address] [place] [address] Dr. Marcell Luque IG % 0.2 % Normal 0.0-0.5 [facility] Comment on above: Performed By: #### P TT, PT #### [facility] [address] [place] [address] Dr. Marcell Luque LYMPH # 2.4 103/ul Normal 1.2-3.8 [facility] Comment on above: Performed By: #### P TT, PT #### [facility] [address] [place] [address] Dr. Marcell Luque Lymphocytes/100 WBC (Bld) 29.6 % Normal 20.5-60.0 [facility] Comment on above: Performed By: #### P TT, PT #### [facility] [address] [place] [address] Dr. Marcell Luque MANUAL DIFF REQ NO Normal [facility] Comment on above: Performed By: #### P TT, PT #### [facility] [address] [place] [address] Dr. Marcell Luque MCH (RBC) [Entitic mass] 27.9 pg Normal 25.9-34.0 [facility] Comment on above: Performed By: #### P TT, PT #### [facility] [address] [place] [address] Dr. Marcell Luque MCHC (RBC) [Mass/Vol] 32.1 g/dL Normal 29.9-35.2 [facility] Comment on above: Performed By: #### P TT, PT #### [facility] [address] [place] [address] Dr. Marcell Luque MCV (RBC) [Entitic vol] 87.1 fL Normal 80.0-94.0 [facility] Comment on above: Performed By: #### P TT, PT #### [facility] [address] [place] [address] Dr. Marcell Luque MONO # 0.9 103/ul Critically high 0.3-0.8 [facility] Comment on above: Performed By: #### P TT, PT #### [facility] [address] [place] [address] Dr. Marcell Luque Monocytes/100 WBC (Bld) 10.7 % Normal 1.7-12.0 [facility] Comment on above: Performed By: #### P TT, PT #### [facility] [address] [place] [address] Dr. Marcell Luque NEUT # 4.5 103/ul Normal 1.4-6.5 [facility] Comment on above: Performed By: #### P TT, PT #### [facility] [address] [place] [address] Dr. Marcell Luque Neutrophils/100 WBC (Bld) 55.6 % Normal 43.0-75.0 [facility] Comment on above: Performed By: #### P TT, PT #### [facility] [address] [place] [address] Dr. Marcell Luque Platelet mean volume (Bld) [Entitic vol] 10.7 fL Normal 9.5-13.5 [facility] Comment on above: Performed By: #### P TT, PT #### [facility] [address] [place] [address] Dr. Marcell Luque PLT 155 103/ul Normal 150-450 [facility] Comment on above: Performed By: #### P TT, PT #### [facility] [address] [place] [address] Dr. Marcell Luque RBC 4.51 106/ul Critically low 4.70-6.10 [facility] [facility] Comment on above: Performed By: #### P TT, PT #### [facility] [address] [place] [address] Dr. Marcell Luque WBC 8.1 103/ul Normal 4.0-11.0 [facility] Comment on above: Performed By: #### P TT, PT #### [facility] [address] [place] [address] Dr. Marcell Luque Covid-19 PCR ([facility])on 05-22 SARS-CoV-2 (COVID-19) RNA NISHANT+probe Ql (Unsp spec) Not detected Normal NOT DETECTED [facility] Comment on above: Result Comment: [...] for this test is supported by the Cooling Room Attendant of Health and Human Service's declaration that [...] Performed By: #### P TT, PT #### [facility] [address] [address] [address] Marcell Luque LACTATE/LACTIC ACIDon 2021 Lactate [Moles/Vol] 1.4 mmol/L Normal 0.4-1.9 [facility] Comment on above: Performed By: #### L ACT #### [facility] [address] [address] [address] Marcell Luque PROF CHEM 8 (BAS METB)on Anion gap [Moles/Vol] 8.7 mmol/L Normal [facility] Comment on above: Performed By: #### B MP #### [facility] [address] [address] [address] Marcell Luque Calcium [Mass/Vol] 8.7 mg/dL Normal 8.5-10.1 [facility] Comment on above: Performed By: #### B MP #### [facility] [address] [address] [address] Marcell Luque Chloride [Moles/Vol] 101 mmol/L Normal 98-107 [facility] Comment on above: Performed By: #### B MP #### [facility] [address] [address] [address] Marcell Luque CO2 [Moles/Vol] 29.8 mmol/L Normal 21.0-32.0 [facility] Comment on above: Performed By: #### B MP #### [facility] [address] [address] [address] Marcell Luque Creatinine [Mass/Vol] 1.12 mg/dL Normal 0.70-1.30 [facility] Comment on above: Performed By: #### B MP #### [facility] [address] [address] [address] Marcell Luque EGFR-AF [facility] LUCIAN >60 Normal >=60 [facility] Comment on above: Performed By: #### B MP #### [facility] [address] [address] [address] Marcell Luque EGFR-NON AF [facility] >60 Normal >=60 [facility] Comment on above: Performed By: #### B MP #### [facility] [address] [address] [address] Marcell Luque Glucose [Mass/Vol] 173 mg/dL Critically high 74-106 [facility] Comment on above: Performed By: #### B MP #### [facility] [address] [address] [address] Marcell Luque Potassium [Moles/Vol] 3.5 mmol/L Normal 3.5-5.1 [facility] Comment on above: Performed By: #### B MP #### [facility] [address] [address] [address] Marcell Luque Sodium [Moles/Vol] 136 mmol/L Normal 136-145 [facility] Comment on above: Performed By: #### B MP #### [facility] [address] [address] [address] Marcell Luque Urea nitrogen [Mass/Vol] 18.0 mg/dL Normal 7.0-18.0 [facility] Comment on above: Performed By: #### B MP #### [facility] [address] [address] [address] Marcell Luque Urea nitrogen/Creatinine [Mass ratio] 16.1 mg/mg Normal [facility] Comment on above: Performed By: #### B MP #### [facility] [address] [address] [address] Marcell Luque TROPONIN, HIGH SENSITIVITYon 06-07-2022 HSTROP 84.7 pg/mL Critically high 4.0-76.1 [facility] Comment on above: Result Comment: CUT- OFF POINTS HAVE BEEN ESTABLISHED BASED ON THE FOURTH UNIVERSAL DEFINITIONS OF MYOCARDIAL INFARCTION. THE UPPER REFERENCE LIMIT (URL) OF TROPONIN, DEFINED THE 99TH PERCENTILE OF cTnI DISTRIBUTION IN A REFERENCE POPULATION, HAS BEEN CONFIRMED THE DECISION THRESHOLD FOR [place] DIAGNOSIS. Performed By: #### P TT, PT #### [facility] [address] [address] [address] Marcell Luque XR CHEST 1 Von [...] VALERIE ERWIN Date: 2022-06-06 22:17 Normal [facility] AMMONIAon 06-06-2022 Ammonia (P) [Moles/Vol] 13 umol/L Normal 11-32 [facility] Comment on above: Performed By: #### A MM #### [facility] [address] [place] [address] Dr. Marcell Luque CBC AUTO DIFFon 06-06-2022 BASO # 0.1 103/ul Normal 0.0-0.1 [facility] Comment on above: Performed By: #### P TT, PT #### [facility] [address] [place] [address] Dr. Marcell Luque Basophils/100 WBC (Bld) 0.7 % Normal 0.2-2.0 [facility] Comment on above: Performed By: #### P TT, PT #### [facility] [address] [place] [address] Dr. Marcell Luque EO # 0.3 103/ul Normal 0.0-0.7 [facility] Comment on above: Performed By: #### P TT, PT #### [facility] [address] [place] [address] Dr. Marcell Luque Eosinophils/100 WBC (Bld) 4.0 % Normal 0.9-7.0 [facility] Comment on above: Performed By: #### P TT, PT #### [facility] [address] [place] [address] Dr. Marcell Luque Erythrocyte distribution width (RBC) [Ratio] 13.8 % Normal 11.0-15.0 [facility] Comment on above: Performed By: #### P TT, PT #### [facility] [address] [place] [address] Dr. Marcell Luque Hematocrit (Bld) [Volume fraction] 44.4 % Normal 42.0-54.0 [facility] Comment on above: Performed By: #### P TT, PT #### [facility] [address] [place] [address] Dr. Marcell Luque Hemoglobin (Bld) [Mass/Vol] 14.4 g/dL Normal 14.0-18.0 [facility] Comment on above: Performed By: #### P TT, PT #### [facility] [address] [place] [address] Dr. Marcell Luque IG # 0.02 10e3/ul Normal 0.00-0.03 [facility] Comment on above: Performed By: #### P TT, PT #### [facility] [address] [place] [address] Dr. Marcell Luque IG % 0.2 % Normal 0.0-0.5 [facility] Comment on above: Performed By: #### P TT, PT #### [facility] [address] [place] [address] Dr. Marcell Luque LYMPH # 2.9 103/ul Normal 1.2-3.8 [facility] Comment on above: Performed By: #### P TT, PT #### [facility] [address] [place] [address] Dr. Marcell Luque Lymphocytes/100 WBC (Bld) 35.4 % Normal 20.5-60.0 [facility] Comment on above: Performed By: #### P TT, PT #### [facility] [address] [place] [address] Dr. Marcell Luque MANUAL DIFF REQ NO Normal [facility] Comment on above: Performed By: #### P TT, PT #### [facility] [address] [place] [address] Dr. Marcell Luque MCH (RBC) [Entitic mass] 28.1 pg Normal 25.9-34.0 [facility] Comment on above: Performed By: #### P TT, PT #### [facility] [address] [place] [address] Dr. Marcell Luque MCHC (RBC) [Mass/Vol] 32.4 g/dL Normal 29.9-35.2 [facility] Comment on above: Performed By: #### P TT, PT #### [facility] [address] [place] [address] Dr. Marcell Luque MCV (RBC) [Entitic vol] 86.7 fL Normal 80.0-94.0 [facility] Comment on above: Performed By: #### P TT, PT #### [facility] [address] [place] [address] Dr. Marcell Luuqe MONO # 0.7 103/ul Normal 0.3-0.8 [facility] Comment on above: Performed By: #### P TT, PT #### [facility] [address] [place] [address] Dr. Marcell Luque Monocytes/100 WBC (Bld) 8.2 % Normal 1.7-12.0 [facility] Comment on above: Performed By: #### P TT, PT #### [facility] [address] [place] [address] Dr. Marcell Luque NEUT # 4.2 103/ul Normal 1.4-6.5 [facility] Comment on above: Performed By: #### P TT, PT #### [facility] [address] [place] [address] Dr. Marcell Luque Neutrophils/100 WBC (Bld) 51.5 % Normal 43.0-75.0 [facility] Comment on above: Performed By: #### P TT, PT #### [facility] [address] [place] [address] Dr. Marcell Luque Platelet mean volume (Bld) [Entitic vol] 11.0 fL Normal 9.5-13.5 [facility] Comment on above: Performed By: #### P TT, PT #### [facility] [address] [place] [address] Dr. Marcell Luque PLT 183 103/ul Normal 150-450 [facility] Comment on above: Performed By: #### P TT, PT #### [facility] [address] [place], [place] [address] Dr. Marcell Luque RBC 5.12 106/ul Normal 4.70-6.10 [facility] Comment on above: Performed By: #### P TT, PT #### [facility] [address] [place], [place] [address] Dr. Marcell Luque WBC 8.2 103/ul Normal 4.0-11.0 [facility] Comment on above: Performed By: #### P TT, PT #### [facility] [address] [place], [place] [address] HEAD WO CONon [...] CURTIS WILSON Date: 2022-06-06 21:56 Normal [facility] CULTURE BLOODon 06-06-2022 Microscopic examination of blood, culture Culture Observations: NO GROWTH AT 5 DAYS. Normal [facility] Comment on above: Performed By: #### P TT, PT #### [facility] [address] [address] [address] Marcell Luque Microscopic examination of blood, culture Culture Observations: NO GROWTH AT 5 DAYS. Normal [facility] Comment on above: Performed By: #### P TT, PT #### [facility] [address] [place] [address] Dr. Marcell Luque ETHANOL (BLD ALC)on 06-06-20 22 ALC NOTE NOTE: 80 mg/dl is th e legal limit for a blood alcohol level Normal [facility] Comment on above: Performed By: #### P TT, PT #### [facility] [address] [place] [address] Dr. Marcell Luque Ethanol [Mass/Vol] mg/dL Normal [facility] Comment on above: Performed By: #### P TT, PT #### [facility] [address] [place] [address] Dr. Marcell Luque LACTATE/LACTIC ACIDon 2021 Lactate [Moles/Vol] 2.9 mmol/L Critically high 0.4-1.9 [facility] Comment on above: Performed By: #### P TT, PT #### [facility] [address] [address] [address] Marcell Luque PROF 14(COMP METB)on 022 Albumin [Mass/Vol] 4.3 g/dL Normal 3.4-5.0 [facility] Comment on above: Performed By: #### P TT, PT #### [facility] [address] [place] [address] Dr. Marcell Luque Albumin/Globulin [Mass ratio] 1.1 {ratio} Normal [facility] Comment on above: Performed By: #### P TT, PT #### [facility] [address] [place] [address] Dr. Marcell Luque ALP [Catalytic activity/Vol] 91 U/L Normal 46-116 [facility] Comment on above: Performed By: #### P TT, PT #### [facility] [address] [address] [address] Marcell Luque ALT [Catalytic activity/Vol] 35 U/L Normal 16-63 [facility] Comment on above: Performed By: #### P TT, PT #### [facility] [address] [place] [address] Dr. Marcell Lquue Anion gap [Moles/Vol] 11.7 mmol/L Normal [facility] Comment on above: Performed By: #### P TT, PT #### [facility] [address] [address] [address] Marcell Luque AST [Catalytic activity/Vol] 15 U/L Normal 15-37 [facility] Comment on above: Performed By: #### P TT, PT #### [facility] [address] [place] [address] Dr. Marcell Luque Bilirubin [Mass/Vol] 0.4 mg/dL Normal 0.2-1.0 [facility] Comment on above: Performed By: #### P TT, PT #### [facility] [address] [address] [address] Marcell Luque Calcium [Mass/Vol] 9.8 mg/dL Normal 8.5-10.1 [facility] Comment on above: Performed By: #### P TT, PT #### [facility] [address] [place] [address] Dr. Marcell Luque Chloride [Moles/Vol] 97 mmol/L Critically low 98-107 [facility] Comment on above: Performed By: #### P TT, PT #### [facility] [address] [place] [address] Dr. Marcell Luque CO2 [Moles/Vol] 30.8 mmol/L Normal 21.0-32.0 [facility] Comment on above: Performed By: #### P TT, PT #### [facility] [address] [address] [address] Marcell Luque Creatinine [Mass/Vol] 1.45 mg/dL Critically high 0.70-1.30 [facility] Comment on above: Performed By: #### P TT, PT #### [facility] [address] [address] [address] Marcell Luque EGFR-AF [facility] 59 mL/min/1.73m2 Critically low >=60 [facility] Comment on above: Performed By: #### P TT, PT #### [facility] [address] [place] [address] Dr. Marcell Luque EGFR-NON AF [facility] 49 mL/min/1.73m2 Critically low >=60 [facility] Comment on above: Performed By: #### P TT, PT #### [facility] [address] [place] [address] Dr. Marcell Luque Globulin (S) [Mass/Vol] 3.9 g/dL Normal [facility] Comment on above: Performed By: #### P TT, PT #### [facility] [address] [place] [address] Dr. Marcell Luque Glucose [Mass/Vol] 204 mg/dL Critically high 74-106 [facility] Comment on above: Performed By: #### P TT, PT #### [facility] [address] [address] [address] Marcell Luque Potassium [Moles/Vol] 3.5 mmol/L Normal 3.5-5.1 [facility] Comment on above: Performed By: #### P TT, PT #### [facility] [address] [place] [address] Dr. Marcell Luque Protein [Mass/Vol] 8.2 g/dL Normal 6.4-8.2 [facility] Comment on above: Performed By: #### P TT, PT #### [facility] [address] [place], [place] [address] Dr. Marcell Luque Sodium [Moles/Vol] 136 mmol/L Normal 136-145 [facility] Comment on above: Performed By: #### P TT, PT #### [facility] [address] [place] [address] Dr. Marcell Luque Urea nitrogen [Mass/Vol] 20.0 mg/dL Critically high 7.0-18.0 [facility] Comment on above: Performed By: #### P TT, PT #### [facility] [address] [place] [address] Dr. Marcell Luque Urea nitrogen/Creatinine [Mass ratio] 13.8 mg/mg Normal [facility] Comment on above: Performed By: #### P TT, PT #### [facility] [address] [place] [address] Dr. Marcell Luque PROTIMEon 06-06-2022 INR Coag (PPP) [Relative time] 1.02 {INR} Normal [facility] Comment on above: Performed By: #### P TT, PT #### [facility] [address] [place] [address] Dr. Marcell Luque INR GUIDELINES SEE BELOW Normal [facility] Comment on above: Result Comment: DANICA RED INR: 2.0 - 3.0 CONDITIONS NOT LISTED BELOW 2.5 - 3.5 FOR PROSTHETIC HEART VALVE REPLACEMENT 2.5 - 3.5 RECURRENT THROMBOSIS Performed By: #### P TT, PT #### [facility] [address] [place] [address] Dr. Marcell Luque PT Coag (PPP) [Time] 11.0 s Normal 9.0-11.6 [facility] Comment on above: Performed By: #### P TT, PT #### [facility] [address] [place] [address] Dr. Marcell Luque PTTon 06-06-2022 aPTT Coag (Bld) [Time] 25.9 s Normal 22.3-36.2 [facility] Comment on above: Performed By: #### P TT, PT #### [facility] [address] [place] [address] Dr. Marcell Luque TROPONIN, HIGH SENSITIVITYon 06-06-2022 HSTROP 92.4 pg/mL Critically high 4.0-76.1 [facility] Comment on above: Result Comment: CUT- OFF POINTS HAVE BEEN ESTABLISHED BASED ON THE FOURTH UNIVERSAL DEFINITIONS OF MYOCARDIAL INFARCTION. THE UPPER REFERENCE LIMIT (URL) OF TROPONIN, DEFINED THE 99TH PERCENTILE OF cTnI DISTRIBUTION IN A REFERENCE POPULATION, HAS BEEN CONFIRMED THE DECISION THRESHOLD FOR [place] DIAGNOSIS. Performed By: #### P TT, PT #### [facility] [address] [address] [address] Marcell Luque Physician Referralon 022 Physician Referral [id number] .00CD:127 Normal [facility] Ambulatory Visit Summaryon 1 Ambulatory Visit Summary EUNICE MARTE :1955 Visit Date:06/02/2022 Ambulatory Visit Instructions Your Diagnosis Elevated PSA BPH with urinary obstruction Erectile dysfunction Tests Performed Urnls Dip Stick Auto w/o Microscopy POC 03600 Your Care Team Attending Physician - Dewey [...] MD, Asim Singleton Where: [facility] Patient Educationon 06-02-20 Patient Education Urology [...] these instructions at home: Medicines ? Take adwk-gvu-vgpjadu and prescription medicines only as told by [...] of your (more content not included)... [facility] Provider Letteron 06-02-2022 Provider Letter June 02, 2022 ESTUARDO EUNICE [address] [facility] [place] [address] ESTUARDOEUNICE 1955 To Whom It May Concern, Please excuse above patient from work. Date of Appointment: From: 06/02/2022 To: 06/02/2022 May Return to Work On:06/02/2022 Restrictions: none Comments: Shayy was with her Eunice for his appointment at our office today, any questions please call our office Sincerely, [facility] [address], [place] [address] [facility] RAD - MRI Reporton 2 RAD - MRI Report [id number] .00CD:127 [facility] Urology Office/Clinic Noteon 06-02-2022 Urology Office/Clinic Note Chief Complaint Patient in office for f/u to MRI of the prostate HPI Staff Patient in office for f/u to MRI of the Prostate done on 05/26/22 [place] [facility] MRI shows a focal area of T2 [...] Information Dewey COTTO, Milvia Lucia, URL, [facility] [address], [facility] [place] [phone] Additional Instructions: Patient Education Erectile Dysfunction I, [...] 6 refi (more content not included)... [facility] Comment on above: Result Comment: Elec tronically Signed By: LuMilvia robb MD\.br\Date and Time Signed: 06/02/22 12:00 EDT\.br\Electronically Co-Signed By: Paty Maher MA.br\Date and Time Co-Signed: 06/02/22 10:08 EDT Creatinine (Bld) [Mass/Vol]O rdered By: Milvia Palomo on 05-26-2022 Creatinine [Mass/Vol] 0.8 mg/dL 0.6-1.3 [facility] Comment on above: ER/ESD physician is notified/shown all ISTAT results.Critical values may be confirmed by laboratory testing ifdeemed necessary by ER attending doctor. No Panel InformationOrdered By: Milvia Palomo on 05-26-2022 POC Estimated GFR > 60 [facility] Comment on above: GFR estimated refere nce range: According to KDOQI guidelines, <60 ml/min/1.73m2 is sufficient to diagnose a patient with chronic kidney disease. POC Estimated GFR Non- Amer > 60 [facility] Screenson 04-29-2022 Screens [id number] 1.00CD:127 Normal [facility] Screens [id number] .00CD:127 Normal [facility] Patient Educationon 04-21-20 Patient Education Oncology [...] of these risk factors: ? Being of -English descent. ? Having a family history of [...] Are older than age 55. ? Are -English. ? Have a father, brother, or uncle [...] 05/19/2018 Document R (more content not included)... [facility] Provider Letteron 04-21-2022 Provider Letter April 21, 2022 EUNICE MARTE [address] [place] [address] EUNICE MARTE 1955 To Whom It May Concern, Please excuse above patient from work. Date of Illness: for appointment 04/21/2022 May Return to Work On: 04/21/2022 Restrictions: _ Comments: _ Sincerely, [facility] [address], [place] [address] [facility] Urology Office/Clinic Noteon 04-21-2022 Urology Office/Clinic Note [...] addressing at this time, will revisit pending rib sawyer workup Follow-up With When Contact Information Dewey [...] mg T (more content not included)... [facility] Comment on above: Result Comment: Elec tronically Signed By: Milvia Palomo MD\.br\Date and Time Signed: 04/21/22 17:24 EDT\.br\Electronically Co-Signed By: Lamar Lowry\.br\Date and Time Co-Signed: 04/21/22 12:13 EDT CBC AUTO DIFFon 01-26-2022 BASO # 0.1 103/ul Normal 0.0-0.1 [facility] Comment on above: Performed By: #### P TT, PT #### [facility] [address] [address] [address] Marcell Luque Basophils/100 WBC (Bld) 1.1 % Normal 0.2-2.0 [facility] Comment on above: Performed By: #### P TT, PT #### [facility] [address] [address] [address] Marcell Luque EO # 0.3 103/ul Normal 0.0-0.7 [facility] Comment on above: Performed By: #### P TT, PT #### [facility] [address] [address] [address] Marcell Luque Eosinophils/100 WBC (Bld) 5.0 % Normal 0.9-7.0 [facility] Comment on above: Performed By: #### P TT, PT #### [facility] [address] [address] [address] Marcell Luque Erythrocyte distribution width (RBC) [Ratio] 13.0 % Normal 11.0-15.0 [facility] Comment on above: Performed By: #### P TT, PT #### [facility] [address] [place] [address] Dr. Marcell Luque Hematocrit (Bld) [Volume fraction] 44.3 % Normal 42.0-54.0 [facility] Comment on above: Performed By: #### P TT, PT #### [facility] [address] [place] [address] Dr. Marcell Luque Hemoglobin (Bld) [Mass/Vol] 14.3 g/dL Normal 14.0-18.0 [facility] Comment on above: Performed By: #### P TT, PT #### [facility] [address] [place] [address] Dr. Marcell Luque IG # 0.01 10e3/ul Normal 0.00-0.03 [facility] Comment on above: Performed By: #### P TT, PT #### [facility] [address] [place] [address] Dr. Marcell Luque IG % 0.2 % Normal 0.0-0.5 [facility] Comment on above: Performed By: #### P TT, PT #### [facility] [address] [place] [address] Dr. Marcell Luque LYMPH # 2.1 103/ul Normal 1.2-3.8 [facility] Comment on above: Performed By: #### P TT, PT #### [facility] [address] [place] [address] Dr. Marcell Luque Lymphocytes/100 WBC (Bld) 32.6 % Normal 20.5-60.0 [facility] Comment on above: Performed By: #### P TT, PT #### [facility] [address] [place] [address] Dr. Marcell Luque MANUAL DIFF REQ NO Normal [facility] Comment on above: Performed By: #### P TT, PT #### [facility] [address] [place] [address] Dr. Marcell Luque MCH (RBC) [Entitic mass] 27.7 pg Normal 25.9-34.0 [facility] Comment on above: Performed By: #### P TT, PT #### [facility] [address] [place] [address] Dr. Marcell Luque MCHC (RBC) [Mass/Vol] 32.3 g/dL Normal 29.9-35.2 [facility] Comment on above: Performed By: #### P TT, PT #### [facility] [address] [place] [address] Dr. Marcell Luque MCV (RBC) [Entitic vol] 85.7 fL Normal 80.0-94.0 [facility] Comment on above: Performed By: #### P TT, PT #### [facility] [address] [place] [address] Dr. Marcell Luque MONO # 0.4 103/ul Normal 0.3-0.8 [facility] Comment on above: Performed By: #### P TT, PT #### [facility] [address] [place] [address] Dr. Marcell Luque Monocytes/100 WBC (Bld) 6.9 % Normal 1.7-12.0 [facility] Comment on above: Performed By: #### P TT, PT #### [facility] [address] [place] [address] Dr. Marcell Luque NEUT # 3.5 103/ul Normal 1.4-6.5 [facility] Comment on above: Performed By: #### P TT, PT #### [facility] [address] [place] [address] Dr. Marcell Luque Neutrophils/100 WBC (Bld) 54.2 % Normal 43.0-75.0 [facility] Comment on above: Performed By: #### P TT, PT #### [facility] [address] [place] [address] Dr. Marcell Luque Platelet mean volume (Bld) [Entitic vol] 11.9 fL Normal 9.5-13.5 [facility] Comment on above: Performed By: #### P TT, PT #### [facility] [address] [place] [address] Dr. Marcell Luque PLT 268 103/ul Normal 150-450 [facility] Comment on above: Performed By: #### P TT, PT #### [facility] [address] [place] [address] Dr. Marcell Luque RBC 5.17 106/ul Normal 4.70-6.10 [facility] Comment on above: Performed By: #### P TT, PT #### [facility] [address] [place] [address] Dr. Marcell Luque WBC 6.4 103/ul Normal 4.0-11.0 [facility] Comment on above: Performed By: #### P TT, PT #### [facility] [address] [place] [address] Dr. Marcell Luque GLYCOHEMOGLOBIN A1Con 2021 ADA RECOMMENDATION SEE BELOW Normal [facility] Comment on above: Result Comment: ADA RECOMMENDED LIMIT 4.0 - 6.0 ADA THERAPEUTIC TARGET < 7.0 ACTION SUGGESTED > 7.0 Performed By: #### A 1C #### [facility] [address] [place] [address] Dr. Marcell Luque Glucose [Mass/Vol] 272 mg/dL Normal [facility] Comment on above: Performed By: #### A 1C #### [facility] [address] [place] [address] Dr. Marcell Luque HbA1c (Bld) [Mass fraction] 11.1 % Critically high 4.5-6.2 [facility] Comment on above: Performed By: #### A 1C #### [facility] [address] [place] [address] Dr. Marcell Luque LIPID PROFILEon 01-26-2022 CHOL-HDL RATIO NORM SEE BELOW Normal [facility] Comment on above: Result Comment: 3.3 - 4.4 LOW RISK 4.4 - 7.1 AVERAGE RISK 7.1 - 11.0 MODERATE RISK >11.0 HIGH RISK Performed By: #### L KALPESH, LIPID, BMP #### [facility] [address] [place] [address] Dr. Marcell Luque Cholesterol [Mass/Vol] 219 mg/dL Critically high <=200 [facility] Comment on above: Performed By: #### L IVER, LIPID, BMP #### [facility] [address] [address] [address] Marcell Luque Cholesterol in HDL [Mass/Vol] 42 mg/dL Normal 40-60 [facility] Comment on above: Performed By: #### L IVER, LIPID, BMP #### [facility] [address] [address] [address] Marcell Luque Cholesterol in LDL [Mass/Vol] 151.8 mg/dL Normal [facility] Comment on above: Performed By: #### L IVER, LIPID, BMP #### [facility] [address] [place] [address] Dr. Marcell Luque Cholesterol.total/Cho lesterol in HDL [Mass ratio] 5.2 {ratio} Normal [facility] Comment on above: Performed By: #### L IVER, LIPID, BMP #### [facility] [address] [place] [address] Dr. Marcell Luque HDL NORMAL > or = 60 mg/dl - LO W CARDIOVASCULAR RISK <40 mg/dl - HIGH CARDIOVASCULAR RISK Normal [facility] Comment on above: Performed By: #### L IVER, LIPID, BMP #### [facility] [address] [place] [address] Dr. Marcell Luque LDL CALC NORMAL SEE BELOW Normal [facility] Comment on above: Result Comment: <100 mg/dl OPTIMAL 100 - 129 mg/dl NEAR OR ABOVE OPTIMAL 130 - 159 mg/dl BORDERLINE HIGH 160 - 189 mg/dl HIGH >190 mg/dl VERY HIGH Performed By: #### L IVER, LIPID, BMP #### [facility] [address] [address] [address] Marcell Luque Triglyceride [Mass/Vol] 126 mg/dL Normal <=150 [facility] Comment on above: Performed By: #### L IVER, LIPID, BMP #### [facility] [address] [place] [address] Dr. Marcell Luque VLDL CALC 25.2 mg/dL Normal [facility] Comment on above: Performed By: #### L IVER, LIPID, BMP #### [facility] [address] [place] [address] Dr. Marcell Luque LIVER PROFILEon 01-26-2022 Albumin [Mass/Vol] 3.8 g/dL Normal 3.4-5.0 [facility] Comment on above: Performed By: #### L IVER, LIPID, BMP #### [facility] [address] [place] [address] Dr. Marcell Luque Albumin/Globulin [Mass ratio] 1.0 {ratio} Normal [facility] Comment on above: Performed By: #### L IVER, LIPID, BMP #### [facility] [address] [place] [address] Dr. Marcell Luque ALP [Catalytic activity/Vol] 106 U/L Normal 46-116 [facility] Comment on above: Performed By: #### L IVER, LIPID, BMP #### [facility] [address] [place] [address] Dr. Marcell Luque ALT [Catalytic activity/Vol] 34 U/L Normal 16-63 [facility] Comment on above: Performed By: #### L IVER, LIPID, BMP #### [facility] [address] [place] [address] Dr. Marcell Luque AST [Catalytic activity/Vol] 19 U/L Normal 15-37 [facility] Comment on above: Performed By: #### L IVER, LIPID, BMP #### [facility] [address] [place] [address] Dr. Marcell Luque BILI, CONJUGATED 0.1 mg/dL Normal 0.0-0.2 [facility] Comment on above: Performed By: #### L IVER, LIPID, BMP #### [facility] [address] [place] [address] Dr. Marcell Luque Bilirubin [Mass/Vol] 0.5 mg/dL Normal 0.2-1.0 [facility] Comment on above: Performed By: #### L IVER, LIPID, BMP #### [facility] [address] [place] [address] Dr. Marcell Luque Globulin (S) [Mass/Vol] 3.9 g/dL Normal [facility] Comment on above: Performed By: #### L IVER, LIPID, BMP #### [facility] [address] [place] [address] Dr. Marcell Luque Protein [Mass/Vol] 7.7 g/dL Normal 6.4-8.2 [facility] Comment on above: Performed By: #### L IVER, LIPID, BMP #### [facility] [address] [address] [address] Marcell Luque PROF CHEM 8 (BAS METB)on Anion gap [Moles/Vol] 12.1 mmol/L Normal [facility] Comment on above: Performed By: #### L IVER, LIPID, BMP #### [facility] [address] [place] [address] Dr. Marcell Luque Calcium [Mass/Vol] 9.3 mg/dL Normal 8.5-10.1 [facility] Comment on above: Performed By: #### L IVER, LIPID, BMP #### [facility] [address] [place] [address] Dr. Marcell Luque Chloride [Moles/Vol] 100 mmol/L Normal 98-107 [facility] Comment on above: Performed By: #### L IVER, LIPID, BMP #### [facility] [address] [place] [address] Dr. Marcell Luque CO2 [Moles/Vol] 29.1 mmol/L Normal 21.0-32.0 [facility] Comment on above: Performed By: #### L IVER, LIPID, BMP #### [facility] [address] [place] [address] Dr. Marcell Luque Creatinine [Mass/Vol] 1.23 mg/dL Normal 0.70-1.30 [facility] Comment on above: Performed By: #### L IVER, LIPID, BMP #### [facility] [address] [place] [address] Dr. Marcell Luque EGFR-AF [facility] LUCIAN >60 Normal >=60 [facility] Comment on above: Performed By: #### L IVER, LIPID, BMP #### [facility] [address] [place] [address] Dr. Marcell Luque EGFR-NON AF [facility] LU[facility] 59 mL/min/1.73m2 Critically low >=60 [facility] Comment on above: Performed By: #### L IVER, LIPID, BMP #### [facility] [address] [place] [address] Dr. Marcell Luque Glucose [Mass/Vol] 358 mg/dL Critically high 74-106 [facility] Comment on above: Performed By: #### L IVER, LIPID, BMP #### [facility] [address] [place] [address] Dr. Marcell Luque Potassium [Moles/Vol] 4.2 mmol/L Normal 3.5-5.1 [facility] Comment on above: Performed By: #### L IVER, LIPID, BMP #### [facility] [address] [place] [address] Dr. Marcell Luque Sodium [Moles/Vol] 137 mmol/L Normal 136-145 [facility] Comment on above: Performed By: #### L IVER, LIPID, BMP #### [facility] [address] [place] [address] Dr. Marcell Luque Urea nitrogen [Mass/Vol] 10.0 mg/dL Normal 7.0-18.0 [facility] Comment on above: Performed By: #### L IVER, LIPID, BMP #### [facility] [address] [place] [address] Dr. Marcell Luque Urea nitrogen/Creatinine [Mass ratio] 8.1 mg/mg Normal [facility] Comment on above: Performed By: #### L IVER, LIPID, BMP #### [facility] [address] [place] [address] Dr. Marcell Luque VITAMIN D 25 OHon 01-26-2022 VIT D 25-OH 40.2 ng/mL Normal [facility] Comment on above: Performed By: #### P TT, PT #### [facility] [address] [place] [address] Dr. Marcell Luque VIT D RANGES SEE BELOW Normal [facility] Comment on above: Result Comment: <20 ng/mL Vit D deficient 20 - <30 ng/mL Vit D insufficient 30 - 100 ng/mL Vit D sufficient >100 ng/mL Potential Toxicity Performed By: #### P TT, PT #### [facility] [address] [place], [place] [address] Dr. Marcell Luque Protein S Activityon 019 Protein [Mass/Vol] 101 % Normal 77-116 [facility] Comment on above: Result Comment: Patients [...] APA, PTT, PT, FA8, DRVT, PROCAC, PROSAC ####[facility] [address] [place], [place] [id number] Lab Director: Stas Irving MD APTTon 06-15-2019 aPTT Coag (Bld) [Time] 29.6 s Normal 20.5-30.5 [facility] Comment on above: Performed By: #### H OCYS, APA, PTT, PT, FA8, DRVT, PROCAC, PROSAC ####[facility] [address] [place], [place] [id number] Lab Director: Stas Irving MD Dilute Deepak Viperon 06-15 Dilute Deepak Viper Negative Normal NLUP [facility] Comment on above: Performed By: #### H OCYS, APA, PTT, PT, FA8, DRVT, PROCAC, PROSAC ####[facility] [address] [place], [place] [id number] Lab Director: Stas Irving MD Factor VIII Activityon 06-15 Factor VIII Activity 173 % High 50-150 [facility] Comment on above: Performed By: #### H OCYS, APA, PTT, PT, FA8, DRVT, PROCAC, PROSAC ####[address] [id number] Lab Director: Stas Irving MD PTon 06-15-2019 INR Coag (PPP) [Relative time] 1.1 {INR} Normal [facility] Comment on above: Result Comment: Therapeutic Range: Moderate Anticoagulant Intensity: INR = 2.0-3.0 High Anticoagulant Intensity: INR = 2.5-3.5 Performed By: #### H OCYS, APA, PTT, PT, FA8, DRVT, PROCAC, PROSAC ####[address] [address] lab Director: Stas Irving MD PT Coag (PPP) [Time] 11.8 s Normal 9.0-12.0 [facility] Comment on above: Performed By: #### H OCYS, APA, PTT, PT, FA8, DRVT, PROCAC, PROSAC ####[facility] [address] [place] [address] lab Director: Stas Irving MD Protein C Activityon 019 Protein [Mass/Vol] 130 % Normal >80 [facility] Comment on above: Result Comment: Patients [...] APA, PTT, PT, FA8, DRVT, PROCAC, PROSAC ####[address] [id number] lab Director: Stas Irving MD Anti-Phospholipid Abon 06-12 Antiphospholipid IgA 15.3 APU High <12 [facility] Comment on above: Result Comment: Reference Range: 12 - 15 Equivocal >15 Positive Performed By: #### H OCYS, APA, PTT, PT, FA8, DRVT, PROCAC, PROSAC ####[facility] [address] [place], [place] [id number] Lab Director: Stas Irving MD Antiphospholipid IgG 2.7 GPU Normal <20 [facility] Comment on above: Result Comment: Reference Range: 20.0 - 29.9 Low Positive 30.0 - 79.9 Moderate Positive >79.9 High Positive Performed By: #### H OCYS, APA, PTT, PT, FA8, DRVT, PROCAC, PROSAC ####[facility] [address] [place], [place] [id number] Lab Director: Stas Irving MD Antiphospholipid IgM 4.7 MPU Normal <20 [facility] Comment on above: Result Comment: Reference Range: 20.0 - 29.9 Low Positive 30.0 - 79.9 Moderate Positive >79.9 High Positive Performed By: #### H OCYS, APA, PTT, PT, FA8, DRVT, PROCAC, PROSAC ####[facility] [address] [place], [place] [id number] Lab Director: Stas Irving MD Basic Metabolic Panel 05-22 Anion gap [Moles/Vol] 12 mmol/L 9 - 17 mmol/L [place] Bun/Cre Ratio NOT REPORTED [place] Calcium [Mass/Vol] 9.6 mg/dL 8.6 - 10. 4 mg/dL [place] Chloride [Moles/Vol] 97 mmol/L Low 98 - 10 7 mmol/L [place] CO2 [Moles/Vol] 29 mmol/L 20 - 31 mmol/L [place] Creatinine [Mass/Vol] 1.08 mg/dL 0.7 - 1.2 mg/dL [place] GFR >60 >60 mL/min [place] GFR Non- >60 >60 mL/min [place] GFR/1.73 sq M predicted among non-blacks MDRD (S/P/Bld) [Vol rate/Area] [place] Comment on above: Average GFR for 60-6 9 years old: 85 mL/min/1.73sq m Chronic Kidney Disease: <60 mL/min/1.73sq m Kidney failure: <15 mL/min/1.73sq m eGFR calculated using average adult body mass. Additional eGFR calculator available at: http://www.[employer]/multiple_crcl_2012.htm GFR/1.73 sq M predicted among non-blacks MDRD (S/P/Bld) [Vol rate/Area] NOT REPORTED [place] Glucose [Mass/Vol] 198 mg/dL High 70 - 99 mg/dL [place] Interpretation and review of laboratory results Abnormal [place] Potassium [Moles/Vol] 3.9 mmol/L 3.7 - 5.3 mmol/L [place] Sodium [Moles/Vol] 138 mmol/L 135 - 144 mmol/L [place] Urea nitrogen [Mass/Vol] 14 mg/dL 8 - 23 mg/dL [place] Basic Metabolic Profon 06-09 (cont.) Normal [facility] Comment on above: Result Comment: Aver age GFR for 60-69 years old: 85 mL/min/1.73sq m Chronic Kidney Disease: <60 mL/min/1.73sq m Kidney failure: <15 mL/min/1.73sq m eGFR calculated using average adult body mass. Additional eGFR calculator available at: http://www.[employer]/multiple_crcl_2011.htm Performed By: #### C DP, BMP ####[facility] [address] [place] [address] Lab Director: Stas Irving MD Anion gap [Moles/Vol] 12 mmol/L Normal - [facility] Comment on above: Performed By: #### C DP, BMP ####[facility] [address] [place] [address] Lab Director: Stas Irving MD Calcium [Mass/Vol] 9.6 mg/dL Normal 8.6-10.4 [facility] Comment on above: Performed By: #### C DP, BMP ####[facility] [address] [place], [place] [phone] Director: Stas Irving MD Chloride [Moles/Vol] 97 mmol/L Low 98-107 [facility] Comment on above: Performed By: #### C DP, BMP ####[facility] [address] [place], [place] [phone] Director: Stas Irving MD CO2 [Moles/Vol] 29 mmol/L Normal 20-31 [facility] Comment on above: Performed By: #### C DP, BMP ####[facility] [address] [place] [address] [phone] Director: Stas Irving MD Creatinine [Mass/Vol] 1.08 mg/dL Normal 0.70-1.20 [facility] Comment on above: Performed By: #### C DP, BMP ####[facility] [address] [place] [address] [phone] Director: Stas Irving MD GFR, Amer >60 Normal >60 [facility] Comment on above: Performed By: #### C DP, BMP ####[facility] [address] [place] [address] [phone] Director: Stas Irving MD GFR,non Amer >60 Normal >60 [facility] Comment on above: Performed By: #### C DP, BMP ####[facility] [address] [place], [place] [phone] Director: Stas Irving MD Glucose [Mass/Vol] 198 mg/dL High 70-99 [facility] Comment on above: Performed By: #### C DP, BMP ####[facility] [address] [place] [address] Lab Director: Stas Irving MD Potassium [Moles/Vol] 3.9 mmol/L Normal 3.7-5.3 [facility] Comment on above: Performed By: #### C DP, BMP ####[facility] [address] [place], [place] [phone] Director: Stas Irving MD Sodium [Moles/Vol] 138 mmol/L Normal 135-144 [facility] Comment on above: Performed By: #### C DP, BMP ####[facility] [address] [place] [address] [phone] Director: Stas Irving MD Urea nitrogen [Mass/Vol] 14 mg/dL Normal 8-23 [facility] Comment on above: Performed By: #### C DP, BMP ####[facility] [address] [place] [address] [phone] Director: Stas Irving MD BUN/CRE Ratio NOT REPORTED Normal 9- [facility] Comment on above: Performed By: #### C DP, BMP ####[facility] [address] [place] [address] [phone] Director: Stas Irving MD Staging: NOT REPORTED Normal [facility] Comment on above: Performed By: #### C DP, BMP ####[facility] [address] [place] [address] [phone] Director: Stas Irving MD CBC Auto Differentialon 05-22 Basophils (Bld) [#/Vol] 0.07 10*3/uL [place] Basophils/100 WBC (Bld) 1 % 0 - 2 % [place] Differential Type NOT REPORTED [place] Eosinophils (Bld) [#/Vol] 0.77 10*3/uL High [place] Eosinophils/100 WBC (Bld) 10 % High 1 - 4 % [place] Erythrocyte distribution width (RBC) [Ratio] 13.7 % 11.8 - 14.4 % [place] Hematocrit (Bld) [Volume fraction] 53.7 % High 40.7 - 50.3 % [place] Hemoglobin (Bld) [Mass/Vol] 17.0 g/dL 13 - 17 g/dL [place] Immature granulocytes (Bld) [#/Vol] 10*3/uL [place] Immature granulocytes (Bld) [#/Vol] 0 % 0 [place] Interpretation and review of laboratory results Abnormal [place] Lymphocytes (Bld) [#/Vol] 2.66 10*3/uL [place] Lymphocytes/100 WBC (Bld) 36 % 24 - 43 % [place] MCH (RBC) [Entitic mass] 28.3 pg 25.2 - 33.5 pg [place] MCHC (RBC) [Mass/Vol] 31.7 g/dL 28.4 - 34.8 g/dL [place] MCV (RBC) [Entitic vol] 89.5 fL 82.6 - 102.9 fL [place] Monocytes (Bld) [#/Vol] 0.89 10*3/uL [place] Monocytes/100 WBC (Bld) 12 % 3 - 12 % [place] Platelet mean volume (Bld) [Entitic vol] 10.9 fL 8.1 - 13.5 fL [place] Platelets (Bld) [#/Vol] NOT REPORTED [place] Platelets (Bld) [#/Vol] 189 10*3/uL [place] RBC (Bld) [#/Vol] 6.00 10*6/uL High 4.21 - 5.7 7 m/uL [place] RBC morphology finding Nom (Bld) NOT REPORTED [place] Segmented neutrophils/100 WBC (Bld) 41 % 36 - 65 % [place] Segs Absolute 3.07 [place] WBC (Bld) [#/Vol] 0.0 10*3/uL 0.0 per 10 0 WBC [place] WBC (Bld) [#/Vol] 7.5 10*3/uL [place] WBC Morphology NOT REPORTED [place] CBC with Diffon 06-09-2019 Abs. Basophil 0.07 k/uL Normal 0.00-0.20 [facility] Comment on above: Performed By: #### C DP, BMP ####[address] [address])[phone] Director: Stas Irving MD Abs.Imm.Granulocyte <0.03 Normal 0.00-0.30 [facility] Comment on above: Performed By: #### C DP, BMP ####[place], [place] [address])[phone] Director: Stas Irving MD Abs.Neutrophil (Seg) 3.07 k/uL Normal 1.50-8.10 [facility] Comment on above: Performed By: #### C DP, BMP ####[address] [address])[phone] Director: Stas Irving MD Basophils/100 WBC (Bld) 1 % Normal 0-2 [facility] Comment on above: Performed By: #### C DP, BMP ####[address] [address])[phone] Director: Stas Irving MD Eosinophils (Bld) [#/Vol] 0.77 10*3/uL High 0.00-0.44 [facility] Comment on above: Performed By: #### C DP, BMP ####[address] [address])[phone] Director: Stas Irving MD Eosinophils/100 WBC (Bld) 10 % High 1-4 [facility] Comment on above: Performed By: #### C DP, BMP ####[address] [id number])[phone] Director: Stas Irving MD Erythrocyte distribution width (RBC) [Ratio] 13.7 % Normal 11.8-14.4 [facility] Comment on above: Performed By: #### C DP, BMP ####[address] [phone] Director: Stas Irving MD Hematocrit (Bld) [Volume fraction] 53.7 % High 40.7-50.3 [facility] Comment on above: Performed By: #### C DP, BMP ####[address] [address])[phone] Director: Stas Irving MD Hemoglobin (Bld) [Mass/Vol] 17.0 g/dL Normal 13.0-17.0 [facility] Comment on above: Performed By: #### C DP, BMP ####[address] [phone] Director: Stas Irving MD Immature granulocytes (Bld) [#/Vol] 0 % Normal 0 [facility] Comment on above: Performed By: #### C DP, BMP ####[address] [phone] Director: Stas Irving MD Lymphocytes (Bld) [#/Vol] 2.66 10*3/uL Normal 1.10-3.70 [facility] Comment on above: Performed By: #### C DP, BMP ####[address] [phone])[phone] Director: Stas Irving MD Lymphocytes/100 WBC (Bld) 36 % Normal 24-43 [facility] Comment on above: Performed By: #### C DP, BMP ####[address] [phone] Director: Stas Irving MD MCH (RBC) [Entitic mass] 28.3 pg Normal 25.2-33.5 [facility] Comment on above: Performed By: #### C DP, BMP ####[address] [phone] Director: Stas Irving MD MCHC (RBC) [Mass/Vol] 31.7 g/dL Normal 28.4-34.8 [facility] Comment on above: Performed By: #### C DP, BMP ####[address] [phone] Director: Stas Irving MD MCV (RBC) [Entitic vol] 89.5 fL Normal 82.6-102.9 [facility] Comment on above: Performed By: #### C DP, BMP ####[address] [address])[phone] Director: Stas Irving MD Monocytes (Bld) [#/Vol] 0.89 10*3/uL Normal 0.10-1.20 [facility] Comment on above: Performed By: #### C DP, BMP ####[address] [phone] Director: Stas Irving MD Monocytes/100 WBC (Bld) 12 % Normal 3-12 [facility] Comment on above: Performed By: #### C DP, BMP ####[address] [phone])[phone] Director: Stas Irving MD Neutrophil (Seg) 41 % Normal 36-65 [facility] Comment on above: Performed By: #### C DP, BMP ####[address] [phone] Director: Stas Irving MD NRBC Automated 0.0 per 100 WBC Normal 0.0 [facility] Comment on above: Performed By: #### C DP, BMP ####[facility] [address] [place] [address] Lab Director: Stas Irving MD Platelet mean volume (Bld) [Entitic vol] 10.9 fL Normal 8.1-13.5 [facility] Comment on above: Performed By: #### C DP, BMP ####[facility] [address] [place] [address] Lab Director: Stas Irving MD Platelets (Bld) [#/Vol] 189 10*3/uL Normal 138-453 [facility] Comment on above: Performed By: #### C DP, BMP ####[address] [address] Lab Director: Stas Irving MD RBC (Bld) [#/Vol] 6.00 10*6/uL High 4.21-5.77 [facility] Comment on above: Performed By: #### C DP, BMP ####[address] [address] Lab Director: Stas Irving MD WBC (Bld) [#/Vol] 7.5 10*3/uL Normal 3.5-11.3 [facility] Comment on above: Performed By: #### C DP, BMP ####[address] [address] Lab Director: Stas Irving MD Auto Diff Performed NOT REPORTED Normal [facility] Comment on above: Performed By: #### C DP, BMP ####[place] [address] [place] [address] Lab Director: Stas Irving MD Platelets (Bld) [#/Vol] NOT REPORTED Normal [facility] Comment on above: Performed By: #### C DP, BMP ####[place] [address] [place] [address] lab Director: Stas Irving MD RBC morphology finding Nom (Bld) NOT REPORTED Normal [facility] Comment on above: Performed By: #### C DP, BMP ####[place] [address] [place] [address] lab Director: Stas Irving MD WBC Morphology NOT REPORTED Normal [facility] Comment on above: Performed By: #### C DP, BMP ####[place] [address] [place] [address] lab Director: Stas Irving MD DNA Testingon 06-09-2019 DNA Testing (NOTE) [id number] [facility] DNA DIAGNOSTICS MOLECULAR PATHOLOGY LABORATORY [address] [place] [phone] FACTOR V LEIDEN MUTATION ANALYSIS REPORT [facility] Aron Llanes MD, Ravinder Pratt MD Specimen(s) Received: Peripheral blood, FVLI Clinical Information: CVA RESULTS: MOLECULAR GENETIC DIAGNOSIS: Negative for Factor V Leiden Mutation INTERPRETATION: The Factor V Leiden mutation (1691GA) [c.1601G>A(p.Vqd256Kp n)] was not detected in this study. This patient may, however, still be at risk for venous thrombosis due to another genetic predisposition including the Factor II (Prothrombin 50741QA) mutation or either of the 5, 10-methylenetetrahydr ofolate reductase (MTHFR) mutations (677T and F4960W) Additional molecular testing is available for these [...] which predicts a single amino acid replacement ([id number]) at one of three activated protein C [...] the Invader Factor V test that utilizes Cliq chemistry for detecting gene-specific sequences. Target amplification [...] Invader and Cleavase are registered trademarks of [employer] This test is performed pursuant to an agreement with [employer] Electronically Signed Out Ravinder Pratt M.D. Normal [facility] Comment on above: Performed By: #### P PPFVL ####[facility] [place] [address] Lab Director: Stas Irving MD DNA Testing (NOTE) [id number] [facility] DNA DIAGNOSTICS MOLECULAR PATHOLOGY LABORATORY [address] [place], [place] [phone] FACTOR II (PROTHROMBIN) MUTATION ANALYSIS REPORT [facility] Aron Llanes MD, Ravinder Pratt MD Specimen(s) Received: Peripheral blood, PTI Clinical Information: CVA RESULTS: MOLECULAR GENETIC DIAGNOSIS: Negative for Prothrombin 94310D Mutation INTERPRETATION: The Factor II (Prothrombin) mutation (98163TL) [c.*97G>A] was not detected in this study. This patient may, however, still be at risk for venous thrombosis due to another genetic predisposition including the Factor V Leiden (1691GA) mutation or either of the 5, 10-methylenetetrahydr ofolate reductase (MTHFR) mutations (677T and K3529N). Additional molecular testing is available for these [...] been identified in exon 14 at position 32515 of the prothrombin gene ([id number]). This allele has a population frequency of 1.2% and is associated with a 2.8 fold increased risk of venous thrombosis in individuals of [place] ancestry. Patient DNA is assayed for the presence of wild type or mutant gene sequences in the Factor II (Prothrombin) gene by the Invader Factor II test that utilizes [employer] chemistry for detecting gene-specific sequences. Target amplification [...] Invader and Cleavase are registered trademarks of [employer]. This test is performed pursuant to an agreement with [employer]. Electronically Signed Out Ravinder Pratt M.D. Normal [facility] Comment on above: Performed By: #### P PPPT ####[place] [address] [place] [address] Lab Director: Stas Irving MD Homocysteineon 06-09-2019 Homocysteine 9.4 umol/L Normal <15.0 [facility] Comment on above: Performed By: #### H OCYS, APA, PTT, PT, FA8, DRVT, PROCAC, PROSAC ####[place] [address] [place] [address] Lab Director: Stas Irving MD Homocysteine, Serumon 2018 Homocysteine 9.4 umol/L <15.0 [place], [place] POC Glucose Fingerstickon Glucose [Mass/Vol] 276 mg/dL High 75 - 110 mg/dL [place] Interpretation and review of laboratory results Abnormal [place] Glucose [Mass/Vol] 190 mg/dL High 75 - 110 mg/dL [place] Interpretation and review of laboratory results Abnormal [place] Basic Metabolic Panelon 05-22 Anion gap [Moles/Vol] 14 mmol/L 9 - 17 mmol/L [place] Bun/Cre Ratio NOT REPORTED [place] Calcium [Mass/Vol] 9.2 mg/dL 8.6 - 10. 4 mg/dL [place] Chloride [Moles/Vol] 96 mmol/L Low 98 - 10 7 mmol/L [place] CO2 [Moles/Vol] 24 mmol/L 20 - 31 mmol/L [place] Creatinine [Mass/Vol] 0.79 mg/dL 0.7 - 1.2 mg/dL [place] GFR >60 >60 mL/min [place] GFR Non- >60 >60 mL/min [place] GFR/1.73 sq M predicted among non-blacks MDRD (S/P/Bld) [Vol rate/Area] NOT REPORTED [place] GFR/1.73 sq M predicted among non-blacks MDRD (S/P/Bld) [Vol rate/Area] [place] Comment on above: Average GFR for 60-6 9 years old: 85 mL/min/1.73sq m Chronic Kidney Disease: <60 mL/min/1.73sq m Kidney failure: <15 mL/min/1.73sq m eGFR calculated using average adult body mass. Additional eGFR calculator available at: http://www.[employer]_crcl_2011.htm Glucose [Mass/Vol] 225 mg/dL High 70 - 99 mg/dL [place], [place] Interpretation and review of laboratory results Abnormal [place] Potassium [Moles/Vol] 3.3 mmol/L Low 3.7 - 5.3 mmol/L [place] Sodium [Moles/Vol] 134 mmol/L Low 135 - 144 mmol/L [place] Urea nitrogen [Mass/Vol] 11 mg/dL 8 - 23 mg/dL [place] Basic Metabolic Profon 06-08 (cont.) Normal [facility] Comment on above: Result Comment: Aver age GFR for 60-69 years old: 85 mL/min/1.73sq m Chronic Kidney Disease: <60 mL/min/1.73sq m Kidney failure: <15 mL/min/1.73sq m eGFR calculated using average adult body mass. Additional eGFR calculator available at: http://www.[employer]/multiple_crcl_2012.htm Performed By: #### S MAGDY #### [facility] [facility] [place] [address] Inpatient Services Director: Stas Irving MD Anion gap [Moles/Vol] 14 mmol/L Normal 9-17 [facility] Comment on above: Performed By: #### S TROKE #### [facility] [address] [place] [address] Inpatient Services Director: Stas Irving MD Calcium [Mass/Vol] 9.2 mg/dL Normal 8.6-10.4 [facility] Comment on above: Performed By: #### S TROKE #### [facility] [address] [place] [address] Inpatient Services Director: Stas Irving MD Chloride [Moles/Vol] 96 mmol/L Low 98-107 [facility] Comment on above: Performed By: #### S TROKE #### [address] [address] Inpatient Services Director: Stas Irving MD CO2 [Moles/Vol] 24 mmol/L Normal 20-31 [facility] Comment on above: Performed By: #### S TROKE #### [facility] [address] [place] [address] Inpatient Services Director: Stas Irving MD Creatinine [Mass/Vol] 0.79 mg/dL Normal 0.70-1.20 [facility] Comment on above: Performed By: #### S TROKE #### [facility] [address] [place] [address] Inpatient Services Director: Stas Irving MD GFR, Amer >60 Normal >60 [facility] Comment on above: Performed By: #### S TROKE #### [facility] [address] [place] [address] Inpatient Services Director: Stas Irving MD GFR,non Amer >60 Normal >60 [facility] Comment on above: Performed By: #### S TROKE #### [facility] [address] [place] [address] Inpatient Services Director: Stas Irving MD Glucose [Mass/Vol] 225 mg/dL High 70-99 [facility] Comment on above: Performed By: #### S TROKE #### [address] [address] Inpatient Services Director: Stas Irving MD Potassium [Moles/Vol] 3.3 mmol/L Low 3.7-5.3 [facility] Comment on above: Performed By: #### S TROKE #### [address] [address] Inpatient Services Director: Stas Irving MD Sodium [Moles/Vol] 134 mmol/L Low 135-144 [facility] Comment on above: Performed By: #### S TOREYKE #### [address] [address] Inpatient Services Director: Stas Irving MD Urea nitrogen [Mass/Vol] 11 mg/dL Normal 8- [facility] Comment on above: Performed By: #### S TOREYKE #### [address] [address] Inpatient Services Director: Stas Irving MD BUN/CRE Ratio NOT REPORTED Normal - [facility] Comment on above: Performed By: #### S TOREYKE #### [address] [address] Inpatient Services Director: Stas Irving MD Staging: NOT REPORTED Normal [facility] Comment on above: Performed By: #### S TOREYKE #### [address] [address] Inpatient Services Director: Stas Irving MD CBC Auto Differentialon 05-22 Basophils (Bld) [#/Vol] 0.06 10*3/uL [facility] [place] Basophils/100 WBC (Bld) 1 % 0 - 2 % [place] Differential Type NOT REPORTED [place] Eosinophils (Bld) [#/Vol] 0.56 10*3/uL High [place] Eosinophils/100 WBC (Bld) 8 % High 1 - 4 % [place] Erythrocyte distribution width (RBC) [Ratio] 13.9 % 11.8 - 14.4 % [place] Hematocrit (Bld) [Volume fraction] 50.9 % High 40.7 - 50.3 % [place] Hemoglobin (Bld) [Mass/Vol] 16.8 g/dL 13 - 17 g/dL [place] Immature granulocytes (Bld) [#/Vol] 1 % High 0 [place] Immature granulocytes (Bld) [#/Vol] 0.04 10*3/uL [place] Interpretation and review of laboratory results Abnormal [place] Lymphocytes (Bld) [#/Vol] 2.28 10*3/uL [place] Lymphocytes/100 WBC (Bld) 32 % 24 - 43 % [place] MCH (RBC) [Entitic mass] 28.6 pg 25.2 - 33.5 pg [place] MCHC (RBC) [Mass/Vol] 33.0 g/dL 28.4 - 34.8 g/dL [place] MCV (RBC) [Entitic vol] 86.6 fL 82.6 - 102.9 fL [place] Monocytes (Bld) [#/Vol] 0.79 10*3/uL [place] Monocytes/100 WBC (Bld) 11 % 3 - 12 % [place] Platelet mean volume (Bld) [Entitic vol] 12.0 fL 8.1 - 13.5 fL [place] Platelets (Bld) [#/Vol] 285 10*3/uL [place] Platelets (Bld) [#/Vol] NOT REPORTED [place] RBC (Bld) [#/Vol] 5.88 10*6/uL High 4.21 - 5.7 7 m/uL [place] RBC morphology finding Nom (Bld) NOT REPORTED [place] Segmented neutrophils/100 WBC (Bld) 47 % 36 - 65 % [place] Segs Absolute 3.38 [place] WBC (Bld) [#/Vol] 7.1 10*3/uL [place] WBC (Bld) [#/Vol] 0.3 10*3/uL High 0.0 per 10 0 WBC [place] WBC Morphology NOT REPORTED [place] CBC with Diffon 06-08-2019 Abs. Basophil 0.06 k/uL Normal 0.00-0.20 [facility] Comment on above: Performed By: #### S MAGDY #### [address] [address] Inpatient Services Director: Stas Irving MD Abs.Imm.Granulocyte 0.04 k/uL Normal 0.00-0.30 [facility] Comment on above: Performed By: #### S MAGDY #### [address] [address] Inpatient Services Director: Stas Irving MD Abs.Neutrophil (Seg) 3.38 k/uL Normal 1.50-8.10 [facility] Comment on above: Performed By: #### S TOREYKE #### [address] [address] Inpatient Services Director: Stas Irving MD Basophils/100 WBC (Bld) 1 % Normal 0-2 [facility] Comment on above: Performed By: #### S TROKE #### [address] [address] Inpatient Services Director: Stas Irving MD Eosinophils (Bld) [#/Vol] 0.56 10*3/uL High 0.00-0.44 [facility] Comment on above: Performed By: #### S TROKE #### [address] [address] Inpatient Services Director: Stas Irving MD Eosinophils/100 WBC (Bld) 8 % High 1-4 [facility] Comment on above: Performed By: #### S TOREYKE #### [address] [address] Inpatient Services Director: Stas Irving MD Erythrocyte distribution width (RBC) [Ratio] 13.9 % Normal 11.8-14.4 [facility] Comment on above: Performed By: #### S TOREYKE #### [address] [address] Inpatient Services Director: Stas Irving MD Hematocrit (Bld) [Volume fraction] 50.9 % High 40.7-50.3 [facility] Comment on above: Performed By: #### S MAGDY #### [address] [address] Inpatient Services Director: Stas Irving MD Hemoglobin (Bld) [Mass/Vol] 16.8 g/dL Normal 13.0-17.0 [facility] Comment on above: Performed By: #### S MAGDY #### [address] [address] Inpatient Services Director: Stas Irving MD Immature granulocytes (Bld) [#/Vol] 1 % High 0 [facility] Comment on above: Performed By: #### S TOREYKE #### [address] [address] Inpatient Services Director: Stas Irving MD Lymphocytes (Bld) [#/Vol] 2.28 10*3/uL Normal 1.10-3.70 [facility] Comment on above: Performed By: #### S TROKE #### [address] [address] Inpatient Services Director: Stas Irving MD Lymphocytes/100 WBC (Bld) 32 % Normal 24-43 [facility] Comment on above: Performed By: #### S MAGDY #### [address] [address] Inpatient Services Director: Stas Irving MD MCH (RBC) [Entitic mass] 28.6 pg Normal 25.2-33.5 [facility] Comment on above: Performed By: #### S MAGDY #### [address] [address] Inpatient Services Director: Stas Irving MD MCHC (RBC) [Mass/Vol] 33.0 g/dL Normal 28.4-34.8 [facility] Comment on above: Performed By: #### S MAGDY #### [address] [address] Inpatient Services Director: Stas Irving MD MCV (RBC) [Entitic vol] 86.6 fL Normal 82.6-102.9 [facility] Comment on above: Performed By: #### S MAGDY #### [address] [address] Inpatient Services Director: Stas Irving MD Monocytes (Bld) [#/Vol] 0.79 10*3/uL Normal 0.10-1.20 [facility] Comment on above: Performed By: #### S MAGDY #### [address] [address] Inpatient Services Director: Stas Irving MD Monocytes/100 WBC (Bld) 11 % Normal 3-12 [facility] Comment on above: Performed By: #### S MAGDY #### [address] [address] Inpatient Services Director: Stas Irving MD Neutrophil (Seg) 47 % Normal 36-65 [facility] Comment on above: Performed By: #### S MAGDY #### [address] [address] Inpatient Services Director: Stas Irving MD NRBC Automated 0.3 per 100 WBC High 0.0 [facility] Comment on above: Performed By: #### S MAGDY #### [address] [address] Inpatient Services Director: Stas Irving MD Platelet mean volume (Bld) [Entitic vol] 12.0 fL Normal 8.1-13.5 [facility] Comment on above: Performed By: #### S TOREYKE #### [address] [address] Inpatient Services Director: Stas Irving MD Platelets (Bld) [#/Vol] 285 10*3/uL Normal 138-453 [facility] Comment on above: Performed By: #### S MAGDY #### [address] [address] Inpatient Services Director: Stas Irving MD RBC (Bld) [#/Vol] 5.88 10*6/uL High 4.21-5.77 [facility] Comment on above: Performed By: #### S MAGDY #### [address] [address] Inpatient Services Director: Stas Irving MD WBC (Bld) [#/Vol] 7.1 10*3/uL Normal 3.5-11.3 [facility] Comment on above: Performed By: #### S TOREYKE #### [address] [address] Inpatient Services Director: Stas Irving MD Auto Diff Performed NOT REPORTED Normal [facility] Comment on above: Performed By: #### S TOREYKE #### [address] [address] Inpatient Services Director: Stas Irving MD Platelets (Bld) [#/Vol] NOT REPORTED Normal [facility] Comment on above: Performed By: #### S TROKE #### [facility] [address] [place], [place] [id number] Inpatient Services Director: Stas Irving MD RBC morphology finding Nom (Bld) NOT REPORTED Normal [facility] Comment on above: Performed By: #### S TROKE #### [facility] [place], [place] [id number] Inpatient Services Director: Stas Irving MD WBC Morphology NOT REPORTED Normal [facility] Comment on above: Performed By: #### S TROKE #### [facility] [address] [place] [id number] Inpatient Services Director: Stas Irving MD Magnesiumon 06-08-2019 Magnesium [Mass/Vol] 2.0 mg/dL Normal 1.6-2.6 [facility] Comment on above: Performed By: #### S TROKE #### [facility] [address] [place] [id number] Inpatient Services Director: Stas Irving MD Magnesium [Mass/Vol] 2.0 mg/dL 1.6 - 2 .6 mg/dL [place] POC Glucose Fingerstickon Glucose [Mass/Vol] 288 mg/dL High 75 - 110 mg/dL [place] Interpretation and review of laboratory results Abnormal [place] Glucose [Mass/Vol] 350 mg/dL High 75 - 110 mg/dL [place] Interpretation and review of laboratory results Abnormal [place] Glucose [Mass/Vol] 238 mg/dL High 75 - 110 mg/dL [place] Interpretation and review of laboratory results Abnormal [place] Glucose [Mass/Vol] 244 mg/dL High 75 - 110 mg/dL [place] Interpretation and review of laboratory results Abnormal [place] Phosphoruson 06-08-2019 Phosphate [Mass/Vol] 4.5 mg/dL 2.5 - 4 .5 mg/dL [facility] [place] Phosphorus, Inorg.on 019 Phosphorus, Inorg. 4.5 mg/dL Normal 2.5-4.5 [facility] Comment on above: Performed By: #### C DP, BMP, MG, CINTHYA ####[facility] [address] [place] [address] lab Director: Stas Irving MD VL DUP LOWER EXTREMITY VENOU S BILATERALon 06-08-[address] [facility] Vascular Lower Extremities DVT Study [facility] Date of Study 06/08/2019 EUNICE Alcantara Date of 1955 Gender Male Age 63 year(s) Race Black Room Number 0515 Height: 72 inch, 182.88 cm Corporate ID [id number] Weight: 220 pounds, 99.8 kg # Patient Acct [id number] BSA: 2.22 m^2 BMI: 29.84 kg/m^2 # MR # [id number] Locker Room Clerk Rina Frausto Interpreting Omer Oneil Physician Referring Referring Physician DYLON VICK OPTICAL LAB TECHNICIAN-HEALTHCARE INTERPRETER Nurse Practitioner Procedure Type of Study: Veins: [...] !Phasic! ! ! + -------+------+------ + + [facility] [place] Nav, Mhpn Incoming Cardio Results From Cpa/Naartjie - 06/08/2019 6:[address] [facility] Vascular Lower Extremities DVT Study Procedure Patient Name [facility] Date of Study 06/08/2019 EUNICE Alcantara Date of 1955 Gender Male Age 63 year(s) Race Black Room Number 0515 Height: 72 inch, 182.88 cm Corporate ID [id number] Weight: 220 pounds, 99.8 kg # Patient Acct [id number] BSA: 2.22 m^2 BMI: 29.84 kg/m^2 # MR # [id number] Locker Room Clerk Rina Frausto Interpreting Omer Oneil Physician Referring Referring Physician DYLON VICK APRN-HEALTHCARE INTERPRETER Nurse Practitioner Procedure Type of Study: Veins: [...] !Phasic! ! ! + -------+------+------ + + [facility] Basic Metabolic Panelon 10- Anion gap [Moles/Vol] 12 mmol/L 9 - 17 mmol/L [facility] [place] Bun/Cre Ratio NOT REPORTED [facility] [place] Calcium [Mass/Vol] 9.3 mg/dL 8.6 - 10. 4 mg/dL [facility] [place] Chloride [Moles/Vol] 97 mmol/L Low 98 - 10 7 mmol/L [place] [facility] [place] CO2 [Moles/Vol] 26 mmol/L 20 - 31 mmol/L [place] Creatinine [Mass/Vol] 0.76 mg/dL 0.7 - 1.2 mg/dL [place] GFR >60 >60 mL/min [place] GFR Non- >60 >60 mL/min [place] GFR/1.73 sq M predicted among non-blacks MDRD (S/P/Bld) [Vol rate/Area] NOT REPORTED [place] GFR/1.73 sq M predicted among non-blacks MDRD (S/P/Bld) [Vol rate/Area] [place] Comment on above: Average GFR for 60-6 9 years old: 85 mL/min/1.73sq m Chronic Kidney Disease: <60 mL/min/1.73sq m Kidney failure: <15 mL/min/1.73sq m eGFR calculated using average adult body mass. Additional eGFR calculator available at: http://www.[employer]/multiple_crcl_2011.htm Glucose [Mass/Vol] 232 mg/dL High 70 - 99 mg/dL [place] Potassium [Moles/Vol] 3.4 mmol/L Low 3.7 - 5.3 mmol/L [place] Sodium [Moles/Vol] 135 mmol/L 135 - 144 mmol/L [place] Urea nitrogen [Mass/Vol] 8 mg/dL 8 - 23 mg/dL [place] Basic Metabolic Profon 06-07 (cont.) Normal [facility] Comment on above: Result Comment: Aver age GFR for 60-69 years old: 85 mL/min/1.73sq m Chronic Kidney Disease: <60 mL/min/1.73sq m Kidney failure: <15 mL/min/1.73sq m eGFR calculated using average adult body mass. Additional eGFR calculator available at: http://www.[employer]/multiple_crcl_2012.htm Performed By: #### S MAGDY #### [facility] [address] [place] [address] Inpatient Services Director: Stas Irving MD Anion gap [Moles/Vol] 12 mmol/L Normal 9-17 [facility] Comment on above: Performed By: #### S TROKE #### [address] [address] Inpatient Services Director: Stas Irving MD Calcium [Mass/Vol] 9.3 mg/dL Normal 8.6-10.4 [facility] Comment on above: Performed By: #### S TROKE #### [address] [address] Inpatient Services Director: Stas Irving MD Chloride [Moles/Vol] 97 mmol/L Low 98-107 [facility] Comment on above: Performed By: #### S TOREYKE #### [address] [address] Inpatient Services Director: Stas Irving MD CO2 [Moles/Vol] 26 mmol/L Normal 20-31 [facility] Comment on above: Performed By: #### S TOREYKE #### [address] [address] Inpatient Services Director: Stas Irving MD Creatinine [Mass/Vol] 0.76 mg/dL Normal 0.70-1.20 [facility] Comment on above: Performed By: #### S TOREYKE #### [address] [address] Inpatient Services Director: Stas Irving MD GFR, Amer >60 Normal >60 [facility] Comment on above: Performed By: #### S TOREYKE #### [address] [address] Inpatient Services Director: Stas Irving MD GFR,non Amer >60 Normal >60 [facility] Comment on above: Performed By: #### S TOREYKE #### [address] [place] [address] Inpatient Services Director: Stas Irving MD Glucose [Mass/Vol] 232 mg/dL High 70-99 [facility] Comment on above: Performed By: #### S MAGDY #### [address] [address] Inpatient Services Director: Stas Irving MD Potassium [Moles/Vol] 3.4 mmol/L Low 3.7-5.3 [facility] Comment on above: Performed By: #### S MAGDY #### [address] [address] Inpatient Services Director: Stas Irving MD Sodium [Moles/Vol] 135 mmol/L Normal 135-144 [facility] Comment on above: Performed By: #### S MAGDY #### [address] [address] Inpatient Services Director: Stas Irving MD Urea nitrogen [Mass/Vol] 8 mg/dL Normal 8-23 [facility] Comment on above: Performed By: #### S MAGDY #### [address] [address] Inpatient Services Director: Stas Irving MD BUN/CRE Ratio NOT REPORTED Normal 9-20 [facility] Comment on above: Performed By: #### S MAGDY #### [address] [address] Inpatient Services Director: Stas Irving MD Staging: NOT REPORTED Normal [facility] Comment on above: Performed By: #### S MAGDY #### [address] [address] Inpatient Services Director: Stas Irving MD CBC Auto Differentialon 05-22 Basophils (Bld) [#/Vol] 0.08 10*3/uL [facility] [place] Basophils/100 WBC (Bld) 1 % 0 - 2 % [place] Differential Type NOT REPORTED [place] Eosinophils (Bld) [#/Vol] 0.59 10*3/uL High [place] Eosinophils/100 WBC (Bld) 8 % High 1 - 4 % [place] Erythrocyte distribution width (RBC) [Ratio] 13.6 % 11.8 - 14.4 % [place] Hematocrit (Bld) [Volume fraction] 51.5 % High 40.7 - 50.3 % [place] Hemoglobin (Bld) [Mass/Vol] 16.7 g/dL 13 - 17 g/dL [place] Immature granulocytes (Bld) [#/Vol] 0 % 0 [place] Immature granulocytes (Bld) [#/Vol] 10*3/uL [place] Interpretation and review of laboratory results Abnormal [place] Lymphocytes (Bld) [#/Vol] 2.32 10*3/uL [place] Lymphocytes/100 WBC (Bld) 32 % 24 - 43 % [place] MCH (RBC) [Entitic mass] 28.2 pg 25.2 - 33.5 pg [place] MCHC (RBC) [Mass/Vol] 32.4 g/dL 28.4 - 34.8 g/dL [place] MCV (RBC) [Entitic vol] 86.8 fL 82.6 - 102.9 fL [place] Monocytes (Bld) [#/Vol] 0.66 10*3/uL [place] Monocytes/100 WBC (Bld) 9 % 3 - 12 % [place] Platelet mean volume (Bld) [Entitic vol] 10.9 fL 8.1 - 13.5 fL [place] Platelets (Bld) [#/Vol] 196 10*3/uL [place] Platelets (Bld) [#/Vol] NOT REPORTED [place] RBC (Bld) [#/Vol] 5.93 10*6/uL High 4.21 - 5.7 7 m/uL [place] RBC morphology finding Nom (Bld) NOT REPORTED [place] Segmented neutrophils/100 WBC (Bld) 50 % 36 - 65 % [place] Segs Absolute 3.69 [place] WBC (Bld) [#/Vol] 7.4 10*3/uL [place] WBC (Bld) [#/Vol] 0.0 10*3/uL 0.0 per 10 0 WBC [place] WBC Morphology NOT REPORTED [place] CBC with Diffon 06-07-2019 Abs. Basophil 0.08 k/uL Normal 0.00-0.20 [facility] Comment on above: Performed By: #### S TOREYKE #### [address] [address] Inpatient Services Director: Stas Irving MD Abs.Imm.Granulocyte <0.03 Normal 0.00-0.30 [facility] Comment on above: Performed By: #### S TROKE #### [address] [address] Inpatient Services Director: Stas Irving MD Abs.Neutrophil (Seg) 3.69 k/uL Normal 1.50-8.10 [facility] Comment on above: Performed By: #### S TROKE #### [address] [address] Inpatient Services Director: Stas Irving MD Basophils/100 WBC (Bld) 1 % Normal 0-2 [facility] Comment on above: Performed By: #### S TROKE #### [address] [address] Inpatient Services Director: Stas Irving MD Eosinophils (Bld) [#/Vol] 0.59 10*3/uL High 0.00-0.44 [facility] Comment on above: Performed By: #### S TROKE #### [address] [address] Inpatient Services Director: Stas Irving MD Eosinophils/100 WBC (Bld) 8 % High 1-4 [facility] Comment on above: Performed By: #### S TOREYKE #### [address] [address] Inpatient Services Director: Stas Irving MD Erythrocyte distribution width (RBC) [Ratio] 13.6 % Normal 11.8-14.4 [facility] Comment on above: Performed By: #### S TOREYKE #### [address] [address] Inpatient Services Director: Stas Irving MD Hematocrit (Bld) [Volume fraction] 51.5 % High 40.7-50.3 [facility] Comment on above: Performed By: #### S TOREYKE #### [address] [address] Inpatient Services Director: Stas Irving MD Hemoglobin (Bld) [Mass/Vol] 16.7 g/dL Normal 13.0-17.0 [facility] Comment on above: Performed By: #### S TOREYKE #### [address] [address] Inpatient Services Director: Stas Irving MD Immature granulocytes (Bld) [#/Vol] 0 % Normal 0 [facility] Comment on above: Performed By: #### S TOREYKE #### [address] [address] Inpatient Services Director: Stas Irving MD Lymphocytes (Bld) [#/Vol] 2.32 10*3/uL Normal 1.10-3.70 [facility] Comment on above: Performed By: #### S TROKE #### [address] [address] Inpatient Services Director: Stas Irving MD Lymphocytes/100 WBC (Bld) 32 % Normal 24-43 [facility] Comment on above: Performed By: #### S MAGDY #### [address] [address] Inpatient Services Director: Stas Irving MD MCH (RBC) [Entitic mass] 28.2 pg Normal 25.2-33.5 [facility] Comment on above: Performed By: #### S MAGDY #### [address] [address] Inpatient Services Director: Stas Irving MD MCHC (RBC) [Mass/Vol] 32.4 g/dL Normal 28.4-34.8 [facility] Comment on above: Performed By: #### S MAGDY #### [address] [address] Inpatient Services Director: Stas Irving MD MCV (RBC) [Entitic vol] 86.8 fL Normal 82.6-102.9 [facility] Comment on above: Performed By: #### S MAGDY #### [address] [address] Inpatient Services Director: Stas Irving MD Monocytes (Bld) [#/Vol] 0.66 10*3/uL Normal 0.10-1.20 [facility] Comment on above: Performed By: #### S MAGDY #### [address] [address] Inpatient Services Director: Stas Irving MD Monocytes/100 WBC (Bld) 9 % Normal 3-12 [facility] Comment on above: Performed By: #### S MADGY #### [address] [address] Inpatient Services Director: Stas Irving MD Neutrophil (Seg) 50 % Normal 36-65 [facility] Comment on above: Performed By: #### S MAGDY #### [address] [address] Inpatient Services Director: Stas Irving MD NRBC Automated 0.0 per 100 WBC Normal 0.0 [facility] Comment on above: Performed By: #### S MAGDY #### [address] [address] Inpatient Services Director: Stas Irving MD Platelet mean volume (Bld) [Entitic vol] 10.9 fL Normal 8.1-13.5 [facility] Comment on above: Performed By: #### S TOREYKE #### [address] [address] Inpatient Services Director: Stas Irving MD Platelets (Bld) [#/Vol] 196 10*3/uL Normal 138-453 [facility] Comment on above: Performed By: #### S MAGDY #### [address] [address] Inpatient Services Director: Stas Irving MD RBC (Bld) [#/Vol] 5.93 10*6/uL High 4.21-5.77 [facility] Comment on above: Performed By: #### S MAGDY #### [address] [address] Inpatient Services Director: Stas Irving MD WBC (Bld) [#/Vol] 7.4 10*3/uL Normal 3.5-11.3 [facility] Comment on above: Performed By: #### S TOREYKE #### [address] [address] Inpatient Services Director: Stas Irving MD Auto Diff Performed NOT REPORTED Normal [facility] Comment on above: Performed By: #### S TOREYKE #### [address] [address] Inpatient Services Director: Stas Irving MD Platelets (Bld) [#/Vol] NOT REPORTED Normal [facility] Comment on above: Performed By: #### S TROKE #### [facility] [address] [place], [place] [id number] Inpatient Services Director: Stas Irving MD RBC morphology finding Nom (Bld) NOT REPORTED Normal [facility] Comment on above: Performed By: #### S TROKE #### [facility] [address] [place], [place] [id number] Inpatient Services Director: Stas Irving MD WBC Morphology NOT REPORTED Normal [facility] Comment on above: Performed By: #### S TROKE #### [facility] [address] [place], [place] [phone] Inpatient Services Director: Stas Irving MD CT HEAD WO CONTRASTon [...] Randolph Bustos MD 06/06/19 Final result Normal [facility] MAGNESIUMon 06-07-2019 Magnesium [Mass/Vol] 1.9 mg/dL 1.6 - 2 .6 mg/dL [place] MRI BRAIN WO CONTRASTon 05-22 MRI [...] Cas Berger MD 06/07/19 Final result Normal [facility] MRI Brain WO Contraston 05-22 1. [...] 06/07/2019to be communicated to a licensed caregiver. [facility] MRI OF THE BRAIN [...] the left. BONES/SOFT TISSUES: No significant abnormalities. [facility] Nav, Mhpn Incoming Radiant Results From [employer] - 06/07/2019 11:19 AM EDT EXAMINATION: MRI [...] 06/07/2019to be communicated to a licensed caregiver. [employer] Magnesiumon 06-07-2019 Magnesium [Mass/Vol] 1.9 mg/dL Normal 1.6-2.6 [facility] Comment on above: Performed By: #### S MAGDY #### [facility] [address] [place] [address] Inpatient Services Director: Stas Irving MD Otheron 06-07-2019 Interpretation and review of laboratory results Abnormal [employer] PHOSPHORUSon 06-07-2019 Phosphate [Mass/Vol] 5.4 mg/dL High 2.5 - 4 .5 mg/dL [place] POC Glucose Fingerstickon Glucose [Mass/Vol] 309 mg/dL High 75 - 110 mg/dL [place] Interpretation and review of laboratory results Abnormal [place] Glucose [Mass/Vol] 330 mg/dL High 75 - 110 mg/dL [place] Interpretation and review of laboratory results Abnormal [place] Glucose [Mass/Vol] 251 mg/dL High 75 - 110 mg/dL [place] Interpretation and review of laboratory results Abnormal [place] Glucose [Mass/Vol] 273 mg/dL High 75 - 110 mg/dL [place] Interpretation and review of laboratory results Abnormal [place] Phosphorus, Inorg.on 06-07- 019 Phosphorus, Inorg. 5.4 mg/dL High 2.5-4.5 [facility] Comment on above: Performed By: #### S MAGDY #### [facility] [address] [place] [address] Inpatient Services Director: Stas Irving MD BASIC METABOLIC PANELon 05-22 Anion gap [Moles/Vol] 16 mmol/L 9 - 17 mmol/L [place] Bun/Cre Ratio NOT REPORTED [place] Calcium [Mass/Vol] 9.2 mg/dL 8.6 - 10. 4 mg/dL [place] Chloride [Moles/Vol] 101 mmol/L 98 - 10 7 mmol/L [place] CO2 [Moles/Vol] 20 mmol/L 20 - 31 mmol/L [place] Creatinine [Mass/Vol] 0.48 mg/dL Low 0.7 - 1.2 mg/dL [place] GFR >60 >60 mL/min [place] GFR Non- >60 >60 mL/min [place] GFR/1.73 sq M predicted among non-blacks MDRD (S/P/Bld) [Vol rate/Area] NOT REPORTED [place] GFR/1.73 sq M predicted among non-blacks MDRD (S/P/Bld) [Vol rate/Area] [place] Comment on above: Average GFR for 60-6 9 years old: 85 mL/min/1.73sq m Chronic Kidney Disease: <60 mL/min/1.73sq m Kidney failure: <15 mL/min/1.73sq m eGFR calculated using average adult body mass. Additional eGFR calculator available at: http://www.[employer]/multiple_crcl_2012.htm Glucose [Mass/Vol] 264 mg/dL High 70 - 99 mg/dL [place] Potassium [Moles/Vol] 3.9 mmol/L 3.7 - 5.3 mmol/L [place] Sodium [Moles/Vol] 137 mmol/L 135 - 144 mmol/L [place] Urea nitrogen [Mass/Vol] 5 mg/dL Low 8 - 23 mg/dL [place] Basic Metabolic Profon 06-06 (cont.) Normal [facility] Comment on above: Result Comment: Aver age GFR for 60-69 years old: 85 mL/min/1.73sq m Chronic Kidney Disease: <60 mL/min/1.73sq m Kidney failure: <15 mL/min/1.73sq m eGFR calculated using average adult body mass. Additional eGFR calculator available at: http://www.[employer]_crcl_2011.htm Performed By: #### C DP, BMP, LIPR, MG, CINTHYA, GLYHGB #### [facility] [address] [place] [address] Inpatient Services Director: Stas Irving MD Anion gap [Moles/Vol] 16 mmol/L Normal 9- [facility] Comment on above: Performed By: #### C DP, BMP, LIPR, MG, CINTHYA, GLYHGB #### [facility] [address] [place] [address] Inpatient Services Director: Stas Irving MD Calcium [Mass/Vol] 9.2 mg/dL Normal 8.6-10.4 [facility] Comment on above: Performed By: #### C DP, BMP, LIPR, MG, CINTHYA, GLYHGB #### [facility] [address] [place] [address] Inpatient Services Director: Stas Irving MD Chloride [Moles/Vol] 101 mmol/L Normal 98-107 [facility] Comment on above: Performed By: #### C DP, BMP, LIPR, MG, CINTHYA, GLYHGB #### [facility] [address] [place] [address] Inpatient Services Director: Stas Irving MD CO2 [Moles/Vol] 20 mmol/L Normal 20-31 [facility] Comment on above: Performed By: #### C DP, BMP, LIPR, MG, CINTHAY, GLYHGB #### [facility] [address] [place] [address] Inpatient Services Director: Stas Irving MD Creatinine [Mass/Vol] 0.48 mg/dL Low 0.70-1.20 [facility] Comment on above: Performed By: #### C DP, BMP, LIPR, MG, CINTHYA, GLYHGB #### [facility] [address] [place] [address] Inpatient Services Director: Stas Irving MD GFR, Amer >60 Normal >60 [facility] Comment on above: Performed By: #### C DP, BMP, LIPR, MG, CINTHYA, GLYHGB #### [facility] [address] [place] [address] Inpatient Services Director: Stas Irving MD GFR,non Amer >60 Normal >60 [facility] Comment on above: Performed By: #### C DP, BMP, LIPR, MG, CINTHYA, GLYHGB #### [facility] [address] [place] [address] Inpatient Services Director: Stas Irving MD Glucose [Mass/Vol] 264 mg/dL High 70-99 [facility] Comment on above: Performed By: #### C DP, BMP, LIPR, MG, CINTHYA, GLYHGB #### [address] [address] Inpatient Services Director: Stas Irving MD Potassium [Moles/Vol] 3.9 mmol/L Normal 3.7-5.3 [facility] Comment on above: Performed By: #### C DP, BMP, LIPR, MG, CINTHYA, GLYHGB #### [address] [address] Inpatient Services Director: Stas Irving MD Sodium [Moles/Vol] 137 mmol/L Normal 135-144 [facility] Comment on above: Performed By: #### C DP, BMP, LIPR, MG, CINTHYA, GLYHGB #### [address] [address] Inpatient Services Director: Stas Irving MD Urea nitrogen [Mass/Vol] 5 mg/dL Low 8-23 [facility] Comment on above: Performed By: #### C DP, BMP, LIPR, MG, CINTHYA, GLYHGB #### [address] [address] Inpatient Services Director: Stas Irving MD BUN/CRE Ratio NOT REPORTED Normal - [facility] Comment on above: Performed By: #### C DP, BMP, LIPR, MG, CINTHYA, GLYHGB #### [address] [address] Inpatient Services Director: Stas Irving MD Staging: NOT REPORTED Normal [facility] Comment on above: Performed By: #### C DP, BMP, LIPR, MG, CINTHYA, GLYHGB #### [address] [address] Inpatient Services Director: Stas Irving MD CBC WITH AUTO DIFFERENTIALon 06-06-2019 Basophils (Bld) [#/Vol] 0.08 10*3/uL [place] Basophils/100 WBC (Bld) 1 % 0 - 2 % [place] Differential Type NOT REPORTED [place] Eosinophils (Bld) [#/Vol] 0.62 10*3/uL High [place] Eosinophils/100 WBC (Bld) 9 % High 1 - 4 % [place] Erythrocyte distribution width (RBC) [Ratio] 13.8 % 11.8 - 14.4 % [place] Hematocrit (Bld) [Volume fraction] 49.9 % 40.7 - 50.3 % [place] Hemoglobin (Bld) [Mass/Vol] 16.4 g/dL 13 - 17 g/dL [place] Immature granulocytes (Bld) [#/Vol] 10*3/uL [place] Immature granulocytes (Bld) [#/Vol] 0 % 0 [place] Interpretation and review of laboratory results Abnormal [place] Lymphocytes (Bld) [#/Vol] 2.13 10*3/uL [place] Lymphocytes/100 WBC (Bld) 29 % 24 - 43 % [place] MCH (RBC) [Entitic mass] 28.6 pg 25.2 - 33.5 pg [place] MCHC (RBC) [Mass/Vol] 32.9 g/dL 28.4 - 34.8 g/dL [place] MCV (RBC) [Entitic vol] 86.9 fL 82.6 - 102.9 fL [place] Monocytes (Bld) [#/Vol] 0.62 10*3/uL [place] Monocytes/100 WBC (Bld) 9 % 3 - 12 % [place] Platelet mean volume (Bld) [Entitic vol] 10.1 fL 8.1 - 13.5 fL [place] Platelets (Bld) [#/Vol] 221 10*3/uL [place] Platelets (Bld) [#/Vol] NOT REPORTED [place] RBC (Bld) [#/Vol] 5.74 10*6/uL 4.21 - 5.7 7 m/uL [place] RBC morphology finding Nom (Bld) NOT REPORTED [place] Segmented neutrophils/100 WBC (Bld) 52 % 36 - 65 % [place] Segs Absolute 3.86 [place] WBC (Bld) [#/Vol] 0.0 10*3/uL 0.0 per 10 0 WBC [place] WBC (Bld) [#/Vol] 7.3 10*3/uL [place] WBC Morphology NOT REPORTED [place] CBC with Diffon 06-06-2019 Abs. Basophil 0.08 k/uL Normal 0.00-0.20 [facility] Comment on above: Performed By: #### C DP, BMP, LIPR, MG, CINTHYA, GLYHGB #### [place] [address] Inpatient Services Director: Stas Irving MD Abs.Imm.Granulocyte <0.03 Normal 0.00-0.30 [facility] Comment on above: Performed By: #### C DP, BMP, LIPR, MG, CINTHYA, GLYHGB #### [facility] [address] [place] [address] Inpatient Services Director: Stas Irving MD Abs.Neutrophil (Seg) 3.86 k/uL Normal 1.50-8.10 [facility] Comment on above: Performed By: #### C DP, BMP, LIPR, MG, CINTHYA, GLYHGB #### [facility] [address] [place] [address] Inpatient Services Director: Stas Irving MD Basophils/100 WBC (Bld) 1 % Normal 0-2 [facility] Comment on above: Performed By: #### C DP, BMP, LIPR, MG, CINTHYA, GLYHGB #### [address] [address] Inpatient Services Director: Stas Irving MD Eosinophils (Bld) [#/Vol] 0.62 10*3/uL High 0.00-0.44 [facility] Comment on above: Performed By: #### C DP, BMP, LIPR, MG, CINTHYA, GLYHGB #### [place] [address] Inpatient Services Director: Stas Irving MD Eosinophils/100 WBC (Bld) 9 % High 1-4 [facility] Comment on above: Performed By: #### C DP, BMP, LIPR, MG, CINTHYA, GLYHGB #### [place] [address] Inpatient Services Director: Stas Irving MD Erythrocyte distribution width (RBC) [Ratio] 13.8 % Normal 11.8-14.4 [facility] Comment on above: Performed By: #### C DP, BMP, LIPR, MG, CINTHYA, GLYHGB #### [place] [address] Inpatient Services Director: Stas Irving MD Hematocrit (Bld) [Volume fraction] 49.9 % Normal 40.7-50.3 [facility] Comment on above: Performed By: #### C DP, BMP, LIPR, MG, CINTHYA, GLYHGB #### [place] [address] Inpatient Services Director: Stas Irving MD Hemoglobin (Bld) [Mass/Vol] 16.4 g/dL Normal 13.0-17.0 [facility] Comment on above: Performed By: #### C DP, BMP, LIPR, MG, CINTHYA, GLYHGB #### [facility] [address] [place] [address] Inpatient Services Director: Stas Irving MD Immature granulocytes (Bld) [#/Vol] 0 % Normal 0 [facility] Comment on above: Performed By: #### C DP, BMP, LIPR, MG, CINTHYA, GLYHGB #### [address] [address] Inpatient Services Director: Stas Irving MD Lymphocytes (Bld) [#/Vol] 2.13 10*3/uL Normal 1.10-3.70 [facility] Comment on above: Performed By: #### C DP, BMP, LIPR, MG, CINTHYA, GLYHGB #### [address] [address] Inpatient Services Director: Stas Irving MD Lymphocytes/100 WBC (Bld) 29 % Normal 24-43 [facility] Comment on above: Performed By: #### C DP, BMP, LIPR, MG, CINTHYA, GLYHGB #### [place] [address] Inpatient Services Director: Stas Irving MD MCH (RBC) [Entitic mass] 28.6 pg Normal 25.2-33.5 [facility] Comment on above: Performed By: #### C DP, BMP, LIPR, MG, CINTHYA, GLYHGB #### [address] [address] Inpatient Services Director: Stas Irving MD MCHC (RBC) [Mass/Vol] 32.9 g/dL Normal 28.4-34.8 [facility] Comment on above: Performed By: #### C DP, BMP, LIPR, MG, CINTHYA, GLYHGB #### [place] [address] Inpatient Services Director: Stas Irving MD MCV (RBC) [Entitic vol] 86.9 fL Normal 82.6-102.9 [facility] Comment on above: Performed By: #### C DP, BMP, LIPR, MG, CINTHYA, GLYHGB #### [address] [address] Inpatient Services Director: Stas Irving MD Monocytes (Bld) [#/Vol] 0.62 10*3/uL Normal 0.10-1.20 [facility] Comment on above: Performed By: #### C DP, BMP, LIPR, MG, CINTHYA, GLYHGB #### [address] [address] Inpatient Services Director: Stas Irving MD Monocytes/100 WBC (Bld) 9 % Normal 3-12 [facility] Comment on above: Performed By: #### C DP, BMP, LIPR, MG, CINTHYA, GLYHGB #### [address] [address] Inpatient Services Director: Stas Irving MD Neutrophil (Seg) 52 % Normal 36-65 [facility] Comment on above: Performed By: #### C DP, BMP, LIPR, MG, CINTHYA, GLYHGB #### [address] [address] Inpatient Services Director: Stas Irving MD NRBC Automated 0.0 per 100 WBC Normal 0.0 [facility] Comment on above: Performed By: #### C DP, BMP, LIPR, MG, CINTHYA, GLYHGB #### [address] [address] Inpatient Services Director: Stas Irving MD Platelet mean volume (Bld) [Entitic vol] 10.1 fL Normal 8.1-13.5 [facility] Comment on above: Performed By: #### C DP, BMP, LIPR, MG, CINTHYA, GLYHGB #### [address] [address] Inpatient Services Director: Stas Irving MD Platelets (Bld) [#/Vol] 221 10*3/uL Normal 138-453 [facility] Comment on above: Performed By: #### C DP, BMP, LIPR, MG, CINTHYA, GLYHGB #### [address] [address] Inpatient Services Director: Stas Irving MD RBC (Bld) [#/Vol] 5.74 10*6/uL Normal 4.21-5.77 [facility] Comment on above: Performed By: #### C DP, BMP, LIPR, MG, CINTHYA, GLYHGB #### [facility] [address] [place] [address] Inpatient Services Director: Stas Irving MD WBC (Bld) [#/Vol] 7.3 10*3/uL Normal 3.5-11.3 [facility] Comment on above: Performed By: #### C DP, BMP, LIPR, MG, CINTHYA, GLYHGB #### [address] [address] Inpatient Services Director: Stas Irving MD Auto Diff Performed NOT REPORTED Normal [facility] Comment on above: Performed By: #### C DP, BMP, LIPR, MG, CINTHYA, GLYHGB #### [address] [address] Inpatient Services Director: Stas Irving MD Platelets (Bld) [#/Vol] NOT REPORTED Normal [facility] Comment on above: Performed By: #### C DP, BMP, LIPR, MG, CINTHYA, GLYHGB #### [address] [address] Inpatient Services Director: Stas Irving MD RBC morphology finding Nom (Bld) NOT REPORTED Normal [facility] Comment on above: Performed By: #### C DP, BMP, LIPR, MG, CINTHYA, GLYHGB #### [facility] [address] [place] [address] Inpatient Services Director: Stas Irving MD WBC Morphology NOT REPORTED Normal [facility] Comment on above: Performed By: #### C DP, BMP, LIPR, MG, CINTHYA, GLYHGB #### [place] [address] [place] [id number] Inpatient Services Director: Stas Irving MD CT HEAD WO CONTRASTon [...] C Goyal MD 06/05/19 Final result Normal [facility] CT head without contraston 1 Nav, pn Incoming Radiant Results From [employer] - 06/06/2019 10:31 PM EDT EXAMINATION: CT [...] effect. 3. Redemonstration of multifocal remote infarcts. [place] EXAMINATION: CT OF THE HEAD WITHOUT [...] interface is intact. No acute intracranial hemorrhage. [facility] 1. No evidence of an acute evolving infarct. 2. No acute intracranial hemorrhage or global mass effect. 3. Redemonstration of multifocal remote infarcts. [facility] CTA HEAD W CON AND CTA NECK [...] C Goyal MD 06/05/19 Final result Normal [facility] EKG 12 Leadon 06-06-2019 Atrial Rate 81 BPM [place] P [place] 67 degrees [place] P-R Interval 174 ms [place] Q-T Interval 378 ms [place] QRS Duration 90 ms [place] QTc Calculation (Bazett) 439 ms [place] R [place] -15 degrees [place] T [place] 24 degrees [place] Ventricular Rate 81 BPM [place] Normal sinus rhythm Nonspecific T wave abnormality Abnormal ECG No previous ECGs available [place] Nav, Mhpn Incoming Ekg Results From [employer] - 06/06/2019 9:23 AM EDT Normal sinus rhythm Nonspecific T wave abnormality Abnormal ECG No previous ECGs available [place] Hemoglobin A1Con 06-06-2019 HbA1c (Bld) [Mass fraction] 306 mg/dL Normal [facility] Comment on above: Result Comment: The ADA and AACC recommend providing the estimated average glucose result to permit better patient understanding of their HBA1c result. Performed By: #### C DP, BMP, LIPR, MG, CINTHYA, GLYHGB #### [facility] [place] [address] Inpatient Services Director: Stas Irving MD HbA1c (Bld) [Mass fraction] 12.3 % High 4.0-6.0 [facility] Comment on above: Performed By: #### C DP, BMP, LIPR, MG, CINTHYA, GLYHGB #### [facility] [place], [place] [id number] Inpatient Services Director: Stas Irving MD Glucose [Mass/Vol] 306 mg/dL [place] Comment on above: The ADA and AACC rec ommend providing the estimated average glucose result to permit better patient understanding of their HBA1c result. HbA1c (Bld) [Mass fraction] 12.3 % High 4 - 6 % [place] Interpretation and review of laboratory results Abnormal [place] LIPID PANELon 06-06-2019 Cholesterol [Mass/Vol] 294 mg/dL High <200 [place] Comment on above: Cholesterol Guidelines: <200 Desirable 200-240 Borderline >240 Undesirable Cholesterol in HDL [Mass/Vol] 38 mg/dL Low >40 [place] Comment on above: HDL Guidelines: <40 Undesirable 40-59 Borderline >59 Desirable Cholesterol in LDL [Mass/Vol] 216 mg/dL High 0 - 130 mg/dL [place] Comment on above: LDL Guidelines: <100 Desirable 100-129 Near to/above Desirable 130-159 Borderline >159 Undesirable Direct (measured) LDL and calculated LDL are not interchangeable tests. Cholesterol in VLDL [Mass/Vol] NOT REPORTED High 1 - 30 mg/dL [place] Cholesterol.total/Cho lesterol in HDL [Mass ratio] 7.7 {ratio} High <5 [place] Triglyceride [Mass/Vol] 200 mg/dL High <150 [place] Comment on above: Triglyceride Guidelines: <150 Desirable 150-199 Borderline 200-499 High >499 Very high Based on AHA Guidelines for fasting triglyceride, May 2012. Lipid Profileon 06-06-2019 Cholesterol [Mass/Vol] 294 mg/dL High <200 [facility] Comment on above: Result Comment: Cholesterol Guidelines: <200 Desirable 200-240 Borderline >240 Undesirable Performed By: #### C DP, BMP, LIPR, MG, CINTHYA, GLYHGB #### [facility] [address] [place] [address] Inpatient Services Director: Stas Irving MD Cholesterol in HDL [Mass/Vol] 38 mg/dL Low >40 [facility] Comment on above: Result Comment: HDL Guidelines: <40 Undesirable 40-59 Borderline >59 Desirable Performed By: #### C DP, BMP, LIPR, MG, CINTHYA, GLYHGB #### [facility] [address] [place] [address] [phone] Inpatient Services Director: Stas Irving MD Cholesterol in LDL [Mass/Vol] 216 mg/dL High 0-130 [facility] Comment on above: Result Comment: LDL Guidelines: <100 Desirable 100-129 Near to/above Desirable 130-159 Borderline >159 Undesirable Direct (measured) LDL and calculated LDL are not interchangeable tests. Performed By: #### C DP, BMP, LIPR, MG, CINTHYA, GLYHGB #### [facility] [place] [address] Inpatient Services Director: Stas Irving MD Cholesterol.total/Cho lesterol in HDL [Mass ratio] 7.7 {ratio} High <5 [facility] Comment on above: Performed By: #### C DP, BMP, LIPR, MG, CINTHYA, GLYHGB #### [facility] [place] [address] Inpatient Services Director: Stas Irving MD Triglyceride [Mass/Vol] 200 mg/dL High <150 [facility] Comment on above: Result Comment: Triglyceride Guidelines: <150 Desirable 150-199 Borderline 200-499 High >499 Very high Based on AHA Guidelines for fasting triglyceride, May 2012. Performed By: #### C DP, BMP, LIPR, MG, CINTHYA, GLYHGB #### [facility] [address] [place] [phone] Inpatient Services Director: Stas Irving MD Cholesterol in VLDL [Mass/Vol] NOT REPORTED Normal 09-20 [facility] Comment on above: Performed By: #### C DP, BMP, LIPR, MG, CINTHYA, GLYHGB #### [facility] [address] [place] [address] Inpatient Services Director: Stas Irving MD MAGNESIUMon 06-06-2019 Magnesium [Mass/Vol] 2.0 mg/dL 1.6 - 2 .6 mg/dL [place] MRSA DNA Probe, Nasalon 05-22 MRSA, DNA, Nasal NEGATIVE: MRSA DNA not detected by nucleic acid amplification. NEGATIVE: MRSA DNA not detected by nucleic acid amplificati [place] Comment on above: Results should be used as an adjunct to nosocomial control efforts to identify patients needing enhanced precautions. The test is not intended to identify patients with staphylococcal infections. Results should not be used to guide or monitor treatment for MRSA infections. Specimen Description .NASAL SWAB [place], [place] MRSA, DNA, Nasalon 9 MRSA, DNA, Nasal NEGATIVE: MRSA DNA not detected by nucleic acid amplification. Normal NMRSAA [facility] Comment on above: Result Comment: Results should be used as an adjunct to nosocomial control efforts to identify patients needing enhanced precautions. The test is not intended to identify patients with staphylococcal infections. Results should not be used to guide or monitor treatment for MRSA infections. Performed By: #### S MAGDY #### [facility] [address] [place] [address] [phone] Inpatient Services Director: Stas Irving MD Specimen Description .NASAL SWAB Normal [facility] Comment on above: Performed By: #### S MAGDY #### [facility] [address] [place] [address] [phone] Inpatient Services Director: Stas Irving MD Magnesiumon 06-06-2019 Magnesium [Mass/Vol] 2.0 mg/dL Normal 1.6-2.6 [facility] Comment on above: Performed By: #### C DP, BMP, LIPR, MG, CINTHYA, GLYHGB #### [facility] [address] [place] [address] [phone] Inpatient Services Director: Stas Irving MD Otheron 06-06-2019 Interpretation and review of laboratory results Abnormal [place] PHOSPHORUSon 06-06-2019 Phosphate [Mass/Vol] 3.2 mg/dL 2.5 - 4 .5 mg/dL [place] POC Glucose Fingerstickon Glucose [Mass/Vol] 315 mg/dL High 75 - 110 mg/dL [place] Interpretation and review of laboratory results Abnormal [place] Glucose [Mass/Vol] 310 mg/dL High 75 - 110 mg/dL [place] Interpretation and review of laboratory results Abnormal [place] Glucose [Mass/Vol] 257 mg/dL High 75 - 110 mg/dL [place] Interpretation and review of laboratory results Abnormal [place] Glucose [Mass/Vol] 265 mg/dL High 75 - 110 mg/dL [place] Interpretation and review of laboratory results Abnormal [place] Glucose [Mass/Vol] 211 mg/dL High 75 - 110 mg/dL [place] Interpretation and review of laboratory results Abnormal [place] POCT glucoseon 06-06-2019 Glucose [Mass/Vol] 211 mg/dL [place] Interpretation and review of laboratory results Normal [place] Phosphorus, Inorg.on 019 Phosphorus, Inorg. 3.2 mg/dL Normal 2.5-4.5 [facility] Comment on above: Performed By: #### C DP, BMP, LIPR, MG, CINTHYA, GLYHGB #### [facility] [address] [place] [address] Inpatient Services Director: Stas Irving MD Anion Gap (Calc) POCon 06-05 Anion gap [Moles/Vol] 10 mmol/L 7 - 16 mmol/L [place] CALCIUM, IONIC (POC)on 06-05 POC Ionized Calcium 1.18 mmol/L 1.15 - 1 .33 mmol/L [place] CHLORIDE (POC)on 06-05-2019 Chloride [Moles/Vol] 99 mmol/L 98 - 10 7 mmol/L [place] CT Head WO Contraston 2018 EXAMINATION: [...] of the visualized skull or soft tissues. [place], [place] Nav, pn Incoming Radiant Results From [facility] - 06/05/2019 10:17 PM EDT EXAMINATION: CT [...] Discussed with Dr. Son at 10:14 p.m.. [place] No acute intracrania l abnormality. 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 Pansinusitis. RECOMMENDATIONS: The findings were sent to the Radiology Results Communication Center at 10:13 pm on 06/05/2019to be communicated to a licensed caregiver. Discussed with Dr. Son at 10:14 p.m.. [place] CTA HEAD NECK W CONTRASTon 1 Nav, pn Incoming Radiant Results From [facility] - 06/05/2019 10:57 PM EDT EXAMINATION: CTA [...] discussed with Dr. Son at 10:50 p.m.. 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 Otherwise negative CTA of the head and neck. RECOMMENDATIONS: The findings were sent to the Radiology Results Communication Center at 10:48 pm on 06/05/2019to be communicated to a licensed caregiver. Case discussed with Dr. Son at 10:50 p.m.. [place] EXAMINATION: CTA OF THE HEAD AND [...] bilateral remote basal ganglia infarcts again noted. [place] Creatinine W/GFR Point of Ca reon 06-05-2019 Creatinine [Mass/Vol] 0.77 mg/dL 0.51 - 1.19 mg/dL [place] GFR Non- >60 >60 mL/min [place] GFR/1.73 sq M predicted among non-blacks MDRD (S/P/Bld) [Vol rate/Area] mL/min/{1.73_m2} >60 mL/min [place] GFR/1.73 sq M predicted among non-blacks MDRD (S/P/Bld) [Vol rate/Area] [place] Comment on above: Average GFR for 60-6 9 years old: 85 mL/min/1.73sq m Chronic Kidney Disease: <60 mL/min/1.73sq m Kidney failure: <15 mL/min/1.73sq m eGFR calculated using average adult body mass. Additional eGFR calculator available at: http://www.[employer]/multiple_crcl_2012.htm Hemoglobin and hematocrit, b jahodon 06-05-2019 Hematocrit (Bld) [Volume fraction] 47 % 41 - 53 % [place] Hemoglobin (Bld) [Mass/Vol] 16.0 g/dL 13.5 - 17.5 g/dL [place] Lactic Acid, POCon 9 POC Lactic Acid 1.62 mmol/L High 0.56 - 1.39 mmol/L [place] Otheron 06-05-2019 Interpretation and review of laboratory results Abnormal [place] POC Glucose Fingerstickon Glucose [Mass/Vol] 315 mg/dL High 75 - 110 mg/dL [place] Interpretation and review of laboratory results Abnormal [place] POCT Glucoseon 06-05-2019 Glucose [Mass/Vol] 344 mg/dL High 74 - 100 mg/dL [place] POTASSIUM (POC)on 06-05-2019 Potassium [Moles/Vol] 3.9 mmol/L 3.5 - 4.5 mmol/L [place] SODIUM (POC)on 06-05-2019 Sodium [Moles/Vol] 136 mmol/L Low 138 - 146 mmol/L [place] STROKE PANELon 06-05-2019 % CKMB 2.4 % 0 - 3.5 % [place] Anion gap [Moles/Vol] 12 mmol/L 9 - 17 mmol/L [place] aPTT Coag (Bld) [Time] 26.4 s [place] Basophils (Bld) [#/Vol] 0.06 10*3/uL [place] Basophils/100 WBC (Bld) 1 % 0 - 2 % [place] Bun/Cre Ratio NOT REPORTED [place] Calcium [Mass/Vol] 9.7 mg/dL 8.6 - 10. 4 mg/dL [place] Chloride [Moles/Vol] 98 mmol/L 98 - 10 7 mmol/L [place] CK.MB [Mass/Vol] NORMAL ISOENZYME PATTERN [place] CK.MB [Mass/Vol] 3.3 ng/mL <10.5 [place] CO2 [Moles/Vol] 25 mmol/L 20 - 31 mmol/L [place] Creatinine [Mass/Vol] 0.83 mg/dL 0.7 - 1.2 mg/dL [place] Differential Type NOT REPORTED [place] Eosinophils (Bld) [#/Vol] 0.46 10*3/uL High [place] Eosinophils/100 WBC (Bld) 6 % High 1 - 4 % [place] Erythrocyte distribution width (RBC) [Ratio] 13.7 % 11.8 - 14.4 % [place] GFR >60 >60 mL/min [place] GFR Non- >60 >60 mL/min [place] GFR/1.73 sq M predicted among non-blacks MDRD (S/P/Bld) [Vol rate/Area] NOT REPORTED [place] GFR/1.73 sq M predicted among non-blacks MDRD (S/P/Bld) [Vol rate/Area] [place] Comment on above: Average GFR for 60-6 9 years old: 85 mL/min/1.73sq m Chronic Kidney Disease: <60 mL/min/1.73sq m Kidney failure: <15 mL/min/1.73sq m eGFR calculated using average adult body mass. Additional eGFR calculator available at: http://www.[employer]/multiple_crcl_2012.htm Glucose [Mass/Vol] 353 mg/dL High 70 - 99 mg/dL [place] Hematocrit (Bld) [Volume fraction] 47.2 % 40.7 - 50.3 % [place] Hemoglobin (Bld) [Mass/Vol] 15.6 g/dL 13 - 17 g/dL [place] Immature granulocytes (Bld) [#/Vol] 0.03 10*3/uL [place] Immature granulocytes (Bld) [#/Vol] 0 % 0 [place] INR Coag (PPP) [Relative time] 1.2 {INR} [place] Comment on above: Therapeutic Range: Moderate Anticoagulant Intensity: INR = 2.0-3.0 High Anticoagulant Intensity: INR = 2.5-3.5 Interpretation and review of laboratory results Abnormal [place] Lymphocytes (Bld) [#/Vol] 2.54 10*3/uL [place] Lymphocytes/100 WBC (Bld) 32 % 24 - 43 % [place] MCH (RBC) [Entitic mass] 28.5 pg 25.2 - 33.5 pg [place] MCHC (RBC) [Mass/Vol] 33.1 g/dL 28.4 - 34.8 g/dL [place] MCV (RBC) [Entitic vol] 86.1 fL 82.6 - 102.9 fL [place] Monocytes (Bld) [#/Vol] 0.69 10*3/uL [place] Monocytes/100 WBC (Bld) 9 % 3 - 12 % [place] Myoglobin [Mass/Vol] 24 ng/mL Low 28 - 72 ng/mL [place] Platelet mean volume (Bld) [Entitic vol] 11.3 fL 8.1 - 13.5 fL [place] Platelets (Bld) [#/Vol] 201 10*3/uL [place] Platelets (Bld) [#/Vol] NOT REPORTED [place] Potassium [Moles/Vol] 4.1 mmol/L 3.7 - 5.3 mmol/L [place] PT Coag (PPP) [Time] 12.1 s High [place] RBC (Bld) [#/Vol] 5.48 10*6/uL 4.21 - 5.7 7 m/uL [place] RBC morphology finding Nom (Bld) NOT REPORTED [place] Segmented neutrophils/100 WBC (Bld) 52 % 36 - 65 % [place] Segs Absolute 4.20 [place] Sodium [Moles/Vol] 135 mmol/L 135 - 144 mmol/L [place] Total CK 138 U/L 39 - 308 U/L [place] Troponin I.cardiac [Mass/Vol] NOT REPORTED [place] Troponin T.cardiac [Mass/Vol] NOT REPORTED <0.03 ng/mL [place] Troponin, High Sensitivity 17 ng/L 0 - 22 ng/L [place] Comment on above: High Sensitivity Troponin values cannot be compared with other Troponin methodologies. Patients with high levels of Biotin oral intake (i.e >5mg/day) may have falsely decreased Troponin levels. Samples collected within 8 hours of biotin intake may require additional information for diagnosis. Urea nitrogen [Mass/Vol] 8 mg/dL 8 - 23 mg/dL [place] WBC (Bld) [#/Vol] 0.0 10*3/uL 0.0 per 10 0 WBC [place] WBC (Bld) [#/Vol] 8.0 10*3/uL [place] WBC Morphology NOT REPORTED [place] Stroke Panelon 06-05-2019 % CKMB 2.4 % Normal 0.0-3.5 [facility] Comment on above: Performed By: #### S TROKE #### [facility] [address] [place] [address] Inpatient Services Director: Stas Irving MD Anion gap [Moles/Vol] 12 mmol/L Normal 9-17 [facility] Comment on above: Performed By: #### S TROKE #### [address] [address] Inpatient Services Director: Stas Irving MD Calcium [Mass/Vol] 9.7 mg/dL Normal 8.6-10.4 [facility] Comment on above: Performed By: #### S TROKE #### [address] [address] Inpatient Services Director: Stas Irving MD Chloride [Moles/Vol] 98 mmol/L Normal 98-107 [facility] Comment on above: Performed By: #### S TROKE #### [address] [address] Inpatient Services Director: Stas Irving MD CK [Catalytic activity/Vol] 138 U/L Normal 39-308 [facility] Comment on above: Performed By: #### S TROKE #### [address] [address] Inpatient Services Director: Stas Irving MD CK.MB [Mass/Vol] NORMAL ISOENZYME PATTERN Normal [facility] Comment on above: Performed By: #### S TROKE #### [address] [address] Inpatient Services Director: Stas Irving MD CO2 [Moles/Vol] 25 mmol/L Normal 20-31 [facility] Comment on above: Performed By: #### S TROKE #### [address] [address] Inpatient Services Director: Stas Irving MD Creatinine [Mass/Vol] 0.83 mg/dL Normal 0.70-1.20 [facility] Comment on above: Performed By: #### S TROKE #### [address] [address] Inpatient Services Director: Stas Irving MD GFR, Amer >60 Normal >60 [facility] Comment on above: Performed By: #### S TOREYKE #### [address] [address] Inpatient Services Director: Stas Irving MD GFR,non Amer >60 Normal >60 [facility] Comment on above: Performed By: #### S TROKE #### [address] [address] Inpatient Services Director: Stas Irving MD Glucose [Mass/Vol] 353 mg/dL High 70-99 [facility] Comment on above: Performed By: #### S TOREYKE #### [address] [address] Inpatient Services Director: Stas Irving MD Potassium [Moles/Vol] 4.1 mmol/L Normal 3.7-5.3 [facility] Comment on above: Performed By: #### S TOREYKE #### [address] [address] Inpatient Services Director: Stas Irving MD Sodium [Moles/Vol] 135 mmol/L Normal 135-144 [facility] Comment on above: Performed By: #### S TOREYKE #### [address] [address] Inpatient Services Director: Stas Irving MD Urea nitrogen [Mass/Vol] 8 mg/dL Normal 8-23 [facility] Comment on above: Performed By: #### S TROKE #### [address] [address] Inpatient Services Director: Stas Irving MD (cont.) [facility] Comment on above: Result Comment: Aver age GFR for 60-69 years old: 85 mL/min/1.73sq m Chronic Kidney Disease: <60 mL/min/1.73sq m Kidney failure: <15 mL/min/1.73sq m eGFR calculated using average adult body mass. Additional eGFR calculator available at: http://www.[employer]/multiple_crcl_2012.htm Performed By: #### S MAGDY #### [address] [address] Inpatient Services Director: Stas Irving MD CK-MB,Quantitative 3.3 ng/mL Normal <10.5 [facility] Comment on above: Performed By: #### S TOREYKE #### [facility] [address] [place] [phone] Inpatient Services Director: Stas rIving MD Myoglobin [Mass/Vol] 24 ng/mL Low 28-72 [facility] Comment on above: Performed By: #### S MAGDY #### [address] [address] Inpatient Services Director: Stas Irving MD Troponin, High Sens 17 ng/L Normal 0-22 [facility] Comment on above: Result Comment: High Sensitivity Troponin values cannot be compared with other Troponin methodologies. Patients with high levels of Biotin oral intake (i.e >5mg/day) may have falsely decreased Troponin levels. Samples collected within 8 hours of biotin intake may require additional information for diagnosis. Performed By: #### S MAGDY #### [address] [address] Inpatient Services Director: Stas Irving MD aPTT Coag (Bld) [Time] 26.4 s Normal 20.5-30.5 [facility] Comment on above: Performed By: #### S MAGDY #### [facility] [address] [place] [address] Inpatient Services Director: Stas Irving MD INR Coag (PPP) [Relative time] 1.2 {INR} Normal [facility] Comment on above: Result Comment: Therapeutic Range: Moderate Anticoagulant Intensity: INR = 2.0-3.0 High Anticoagulant Intensity: INR = 2.5-3.5 Performed By: #### S TROKE #### [place] [address] Inpatient Services Director: Stas Irving MD PT Coag (PPP) [Time] 12.1 s High 9.0-12.0 [facility] Comment on above: Performed By: #### S TROKE #### [place] [address] Inpatient Services Director: Stas Irving MD Abs. Basophil 0.06 k/uL Normal 0.00-0.20 [facility] Comment on above: Performed By: #### S TOREYKE #### [place] [address] Inpatient Services Director: Stas Irving MD Abs.Imm.Granulocyte 0.03 k/uL Normal 0.00-0.30 [facility] Comment on above: Performed By: #### S TOREYKE #### [place] [address] Inpatient Services Director: Stas Irving MD Abs.Neutrophil (Seg) 4.20 k/uL Normal 1.50-8.10 [facility] Comment on above: Performed By: #### S TROEYKE #### [place] [address] Inpatient Services Director: Stas Irving MD Basophils/100 WBC (Bld) 1 % Normal 0-2 [facility] Comment on above: Performed By: #### S TROKE #### [place] [address] Inpatient Services Director: Stas Irving MD Eosinophils (Bld) [#/Vol] 0.46 10*3/uL High 0.00-0.44 [facility] Comment on above: Performed By: #### S TROKE #### [place] [address] Inpatient Services Director: Stas Irving MD Eosinophils/100 WBC (Bld) 6 % High 1-4 [facility] Comment on above: Performed By: #### S TOREYKE #### [address] [address] Inpatient Services Director: Stas Irving MD Erythrocyte distribution width (RBC) [Ratio] 13.7 % Normal 11.8-14.4 [facility] Comment on above: Performed By: #### S TOREYKE #### [facility] [address] [place] [address] Inpatient Services Director: Stas Irving MD Hematocrit (Bld) [Volume fraction] 47.2 % Normal 40.7-50.3 [facility] Comment on above: Performed By: #### S MAGDY #### [address] [address] Inpatient Services Director: Stas Irving MD Hemoglobin (Bld) [Mass/Vol] 15.6 g/dL Normal 13.0-17.0 [facility] Comment on above: Performed By: #### S TOREYKE #### [address] [address] Inpatient Services Director: Stas Irving MD Immature granulocytes (Bld) [#/Vol] 0 % Normal 0 [facility] Comment on above: Performed By: #### S TROKE #### [address] [address] Inpatient Services Director: Stas Irving MD Lymphocytes (Bld) [#/Vol] 2.54 10*3/uL Normal 1.10-3.70 [facility] Comment on above: Performed By: #### S TOREYKE #### [facility] [address] [place] [address] Inpatient Services Director: Stas Irving MD Lymphocytes/100 WBC (Bld) 32 % Normal 24-43 [facility] Comment on above: Performed By: #### S MAGDY #### [address] [address] Inpatient Services Director: Stas Irving MD MCH (RBC) [Entitic mass] 28.5 pg Normal 25.2-33.5 [facility] Comment on above: Performed By: #### S MAGDY #### [place] [address] Inpatient Services Director: Stas Irving MD MCHC (RBC) [Mass/Vol] 33.1 g/dL Normal 28.4-34.8 [facility] Comment on above: Performed By: #### S MAGDY #### [place] [address] Inpatient Services Director: Stas Irving MD MCV (RBC) [Entitic vol] 86.1 fL Normal 82.6-102.9 [facility] Comment on above: Performed By: #### S MAGDY #### [place] [address] Inpatient Services Director: Stas Irving MD Monocytes (Bld) [#/Vol] 0.69 10*3/uL Normal 0.10-1.20 [facility] Comment on above: Performed By: #### S MAGDY #### [place] [address] Inpatient Services Director: Stas Irving MD Monocytes/100 WBC (Bld) 9 % Normal 3-12 [facility] Comment on above: Performed By: #### S MAGDY #### [address] [address] Inpatient Services Director: Stas Irving MD Neutrophil (Seg) 52 % Normal 36-65 [facility] Comment on above: Performed By: #### S MAGDY #### [address] [place] [address] Inpatient Services Director: Stas Irving MD NRBC Automated 0.0 per 100 WBC Normal 0.0 [facility] Comment on above: Performed By: #### S TROKE #### [address] [address] Inpatient Services Director: Stas Irving MD Platelet mean volume (Bld) [Entitic vol] 11.3 fL Normal 8.1-13.5 [facility] Comment on above: Performed By: #### S TROKE #### [address] [address] Inpatient Services Director: Stas Irving MD Platelets (Bld) [#/Vol] 201 10*3/uL Normal 138-453 [facility] Comment on above: Performed By: #### S TOREYKE #### [address] [address] Inpatient Services Director: Stas Irving MD RBC (Bld) [#/Vol] 5.48 10*6/uL Normal 4.21-5.77 [facility] Comment on above: Performed By: #### S TOREYKE #### [address] [address] Inpatient Services Director: Stas Irving MD WBC (Bld) [#/Vol] 8.0 10*3/uL Normal 3.5-11.3 [facility] Comment on above: Performed By: #### S TROKE #### [address] [address] Inpatient Services Director: Stas Irving MD Auto Diff Performed NOT REPORTED Normal [facility] Comment on above: Performed By: #### S TROKE #### [address] [address] Inpatient Services Director: Stas Irving MD BUN/CRE Ratio NOT REPORTED Normal 9-20 [facility] Comment on above: Performed By: #### S MAGDY #### [address] [address] Inpatient Services Director: Stas Irving MD Platelets (Bld) [#/Vol] NOT REPORTED Normal [facility] Comment on above: Performed By: #### S TOREYKE #### [address] [address] Inpatient Services Director: Stas Irving MD RBC morphology finding Nom (Bld) NOT REPORTED Normal [facility] Comment on above: Performed By: #### S MAGDY #### [address] [address] Inpatient Services Director: Stas Irving MD Staging: NOT REPORTED Normal [facility] Comment on above: Performed By: #### S MAGDY #### [address] [address] Inpatient Services Director: Stas Irving MD Troponin I.cardiac [Mass/Vol] NOT REPORTED Normal [facility] Comment on above: Performed By: #### S MAGDY #### [address] [address] Inpatient Services Director: Stas Irving MD Troponin T.cardiac [Mass/Vol] NOT REPORTED Normal <0.03 [facility] Comment on above: Performed By: #### S MAGDY #### [address] [address] Inpatient Services Director: Stas Irving MD WBC Morphology NOT REPORTED Normal [facility] Comment on above: Performed By: #### S MAGDY #### [address] [address] Inpatient Services Director: Stas Irving MD Venous Blood Gas, POCon 10-1 [place] Test NOT REPORTED [facility] [place] aPTT Coag (Bld) [Time] NOT REPORTED [place] FIO2 NOT REPORTED [place] HCO3, Venous 27.3 mmol/L 22 - 29 mmol/L [place] Mode NOT REPORTED [place] Negative Base Excess, Kody NOT REPORTED [place] O2 Device/Flow/% NOT REPORTED [place] Oxygen saturation in Blood 67 % 60 - 85 % [place] pCO2, Kody 41.3 [place] pH, Kody 7.428 [place] pO2, Kody 33.8 [place] POC pCO2 Temp NOT REPORTED mm Hg [place] POC pH Temp NOT REPORTED [place] POC pO2 Temp NOT REPORTED mm Hg [place] Positive Base Excess, Kody 3 [place] Sample Site NOT REPORTED [place] Total CO2, Venous 29 mmol/L 23 - 30 mmol/L [place] XR CHEST PORTABLEon 06-05-20 XR CHEST [...] C Goyal MD 06/05/19 Final result Normal [facility] EXAMINATION: ONE XRA Y VIEW OF THE CHEST 06/05/2019 9:01 pm COMPARISON: None. HISTORY: ORDERING SYSTEM PROVIDED HISTORY: CVA TECHNOLOGIST PROVIDED HISTORY: CVA Reason for Exam: stroke upright port FINDINGS: The lungs are without acute focal process. There is no effusion or pneumothorax. The cardiomediastinal silhouette is without acute process. The osseous structures are without acute process. [place] Nav, Mhpn Incoming Radiant Results From [employer] - 06/05/2019 9:43 PM EDT EXAMINATION: ONE [...] without acute process. IMPRESSION: No acute process. [facility], [place] No acute process. [place] Vital Signs Date Time Vital Sign Value Performing Clinician Facility 07-02-2024 14:25-0500 Body height 182.9 cm Adilson Salazar MD Work Phone: [facility] 07-02-2024 14:25-0500 Body mass index (BMI) [Ratio] 33.23 kg/m2 Adilson Salazar MD Work Phone: [facility] 07-02-2024 14:25-0500 Body temperature 96.21 [degF] Adilson Salazar MD Work Phone: [facility] 07-02-2024 14:25-0500 Body weight 111.13 kg Adilson Salazar MD Work Phone: [facility] 07-02-2024 14:25-0500 Diastolic blood pressure 98 mm[Hg] Adilson Salazar MD Work Phone: [facility] 07-02-2024 14:25-0500 Heart rate 91 /min Adilson Salazar MD Work Phone: [facility] 07-02-2024 14:25-0500 Respiratory rate 20 /min Adilson Salazar MD Work Phone: [facility] 07-02-2024 14:25-0500 SaO2% (BldA) [Mass fraction] 95 % Adilson Salazar MD Work Phone: [facility] 07-02-2024 14:25-0500 Systolic blood pressure 200 mm[Hg] Adilson Salazar MD Work Phone: [facility] 05-18-2024 10:12-0400 Body height 182.9 cm Adilson Salazar MD Work Phone: [facility] 05-18-2024 10:12-0400 Body mass index (BMI) [Ratio] 31.46 kg/m2 Adilson Salazar MD Work Phone: [facility] 05-18-2024 10:12-0400 Body temperature 96.6 [degF] Adilson Salazar MD Work Phone: [facility] 05-18-2024 10:12-0400 Body weight 105.23 kg Adilson Salazar MD Work Phone: [facility] 05-18-2024 10:12-0400 Diastolic blood pressure 74 mm[Hg] Adilson Salazar MD Work Phone: [facility] 05-18-2024 10:12-0400 Heart rate 90 /min Adilson Salazar MD Work Phone: [facility] 05-18-2024 10:12-0400 Respiratory rate 18 /min Adilson Salazar MD Work Phone: [facility] 05-18-2024 10:12-0400 SaO2% (BldA) [Mass fraction] 95 % Adilson Salazar MD Work Phone: [facility] 05-18-2024 10:12-0400 Systolic blood pressure 136 mm[Hg] Adilson Salazar MD Work Phone: [facility] 05-02-2024 13:17-0400 Body height 182.9 cm Adilson Salazar MD Work Phone: [facility] 05-02-2024 13:17-0400 Body mass index (BMI) [Ratio] 33.63 kg/m2 Adilson Salazar MD Work Phone: [facility] 05-02-2024 13:17-0400 Body temperature 97.5 [degF] Adilson Salazar MD Work Phone: [facility] 05-02-2024 13:17-0400 Body weight 112.49 kg Adilson Salazar MD Work Phone: [facility] 09-11-2024 13:17-0400 Diastolic blood pressure 64 mm[Hg] Adilson Salazar MD Work Phone: [facility] 05-02-2024 13:17-0400 Heart rate 78 /min Adilson Salazar MD Work Phone: [facility] 05-02-2024 13:17-0400 Respiratory rate 20 /min Adilson Salazar MD Work Phone: [facility] 05-02-2024 13:17-0400 SaO2% (BldA) [Mass fraction] 96 % Adilson Salazar MD Work Phone: [facility] 05-02-2024 13:17-0400 Systolic blood pressure 170 mm[Hg] Adilson Salazar MD Work Phone: [facility] 02-02-2023 10:20-0400 Blood Pressure Location Milvia Lue [facility] 02-02-2023 10:20-0400 Diastolic blood pressure 82 mm[Hg] Milvia Lue [facility] 02-02-2023 10:20-0400 Heart rate 72 /min Milvia Lue [facility] 02-02-2023 10:20-0400 Systolic blood pressure 132 mm[Hg] Milvia Lue [facility] 11-03-2022 08:12-0400 Blood Pressure Location Milvia Lue [facility] 11-03-2022 08:12-0400 Diastolic blood pressure 81 mm[Hg] Milvia Lue [facility] 11-03-2022 08:12-0400 Heart rate 77 /min Milvia Lue [facility] 11-03-2022 08:12-0400 Systolic blood pressure 131 mm[Hg] Milvia Lue [facility] 08-04-2022 08:56-0500 Blood Pressure Location Milvia Lue [facility] 08-04-2022 08:56-0500 Diastolic blood pressure 90 mm[Hg] Milvia Lue [facility] 08-04-2022 08:56-0500 Heart rate 78 /min Milvia Lue [facility] 08-04-2022 08:56-0500 Respiratory rate 16 /min Milvia Lue [facility] 08-04-2022 08:56-0500 Systolic blood pressure 140 mm[Hg] Milvia Lue [facility] 07-06-2022 17:09-0500 Body temperature 97.88 [degF] Milvia Lue [facility] 07-06-2022 17:09-0500 Diastolic blood pressure 88 mm[Hg] Milvia Lue [facility] 07-06-2022 17:09-0500 Heart rate 80 /min Milvia Lue [facility] 07-06-2022 17:09-0500 Mean blood pressure 114 mm[Hg] Milvia Lue [facility] 07-06-2022 17:09-0500 Respiratory rate 16 /min Milvia Lue [facility] 07-06-2022 17:09-0500 SaO2% (BldA) [Mass fraction] 98 % Milvia Lue [facility] 07-06-2022 17:09-0500 Systolic blood pressure 165 mm[Hg] Milvia Lue [facility] 07-06-2022 16:24-0500 Blood Pressure Location Milvia Lue [facility] 07-06-2022 16:24-0500 Body temperature 97.88 [degF] Milvia Lue [facility] 07-06-2022 16:24-0500 Diastolic blood pressure 98 mm[Hg] Milvia Lue [facility] 07-06-2022 16:24-0500 Heart rate 76 /min Milvia Lue [facility] 07-06-2022 16:24-0500 Mean blood pressure 122 mm[Hg] Milvia Lue [facility] 07-06-2022 16:24-0500 SaO2% (BldA) [Mass fraction] 96 % Milvia Lue [facility] 07-06-2022 16:24-0500 Systolic blood pressure 169 mm[Hg] Milvia Lue [facility] 07-06-2022 16:16-0500 Blood Pressure Location Milvia Lue [facility] 07-06-2022 16:16-0500 Body temperature 97.52 [degF] Milvia Lue [facility] 07-06-2022 16:16-0500 Diastolic blood pressure 105 mm[Hg] Milvia Lue [facility] 07-06-2022 16:16-0500 Heart rate 82 /min Milvia Lue [facility] 07-06-2022 16:16-0500 Respiratory rate 16 /min Milvia Lue [facility] 07-06-2022 16:16-0500 SaO2% (BldA) [Mass fraction] 98 % Milvia Lue [facility] 07-06-2022 16:16-0500 Systolic blood pressure 159 mm[Hg] Milvia Lue [facility] 07-06-2022 16:03-0500 Blood Pressure Location Milvia Lue [facility] 07-06-2022 16:03-0500 Respiratory rate 12 /min Milvia Lue [facility] 07-06-2022 15:58-0500 Respiratory rate 17 /min Milvia Lue [facility] 07-06-2022 15:48-0500 Body temperature 97.7 [degF] Milvia Lue [facility] 07-06-2022 10:40-0500 Mean blood pressure 106 mm[Hg] Milvia Lue [facility] 07-06-2022 10:40-0500 Heart rate 80 /min Milvia Lue [facility] 07-06-2022 10:39-0500 Body temperature 98.78 [degF] Milvia Lue [facility] 07-06-2022 10:39-0500 Mean blood pressure 113 mm[Hg] Milvia Lue [facility] 07-06-2022 10:39-0500 Respiratory rate 20 /min Milvia Lue [facility] 06-30-2022 17:30-0500 Blood Pressure Location Milvia Lue [facility] 06-30-2022 17:30-0500 BP/Pulse Patient Position Milvia Lue [facility] 06-30-2022 17:30-0500 Diastolic blood pressure 84 mm[Hg] Milvia Lue [facility] 06-30-2022 17:30-0500 Systolic blood pressure 175 mm[Hg] Milvia Lue [facility] 06-30-2022 17:22-0500 Blood Pressure Location Milvia Lue [facility] 06-30-2022 17:22-0500 Diastolic blood pressure 96 mm[Hg] Milvia Lue [facility] 06-30-2022 17:22-0500 Heart rate 67 /min Milvia Lue [facility] 06-30-2022 17:22-0500 Mean blood pressure 125 mm[Hg] Milvia Lue [facility] 06-30-2022 17:22-0500 Systolic blood pressure 185 mm[Hg] Milvia Lue [facility] 06-30-2022 16:53-0500 Blood Pressure Location Milvia Lue [facility] 06-30-2022 16:53-0500 Body temperature 98.96 [degF] Milvia Lue [facility] 06-30-2022 16:53-0500 BP/Pulse Patient Position Milvia Lue [facility] 06-30-2022 16:53-0500 Diastolic blood pressure 96 mm[Hg] Milvia Lue [facility] 06-30-2022 16:53-0500 Heart rate 76 /min Milvia Lue [facility] 06-30-2022 16:53-0500 Mean blood pressure 124 mm[Hg] Milvia Lue [facility] 06-30-2022 16:53-0500 Respiratory rate 18 /min Milvia Lue [facility] 06-30-2022 16:53-0500 Systolic blood pressure 180 mm[Hg] Milvia Lue [facility] 06-30-2022 16:52-0500 BP/Pulse Patient Position Milvia Lue [facility] 06-30-2022 16:52-0500 Heart rate 79 /min Milvia Lue [facility] 06-30-2022 16:52-0500 Mean blood pressure 124 mm[Hg] Milvia Lue [facility] 06-30-2022 16:52-0500 SaO2% (BldA) [Mass fraction] 98 % Milvia Lue [facility] 06-25-2022 15:25-0400 Blood Pressure Location Curtis AMARALL [facility] 06-25-2022 15:25-0400 Diastolic blood pressure 86 mm[Hg] Curtis NILL [facility] 06-25-2022 15:25-0400 Heart rate 72 /min Curtis AMARALL [facility] 06-25-2022 15:25-0400 Respiratory rate 16 /min Curtis AMARALL [facility] 06-25-2022 15:25-0400 Systolic blood pressure 142 mm[Hg] Curtis AMARALL [facility] 06-02-2022 09:21-0400 Blood Pressure Location Milvia Lue [facility] 06-02-2022 09:21-0400 Diastolic blood pressure 86 mm[Hg] Milvia Lue [facility] 06-02-2022 09:21-0400 Heart rate 72 /min Milvia Lue [facility] 06-02-2022 09:21-0400 Systolic blood pressure 140 mm[Hg] Milvia Lue [facility] 05-26-2022 07:25-0400 Body height 182.88 cm MD Adilson Salazar Work Phone: [facility] 05-26-2022 07:25-0400 Body weight 98.88 kg MD Adilson Salazar Work Phone: [facility] 04-21-2022 11:39-0400 Respiratory rate 16 /min Mil[facility] 06-09-2019 11:39-0400 Body Temperature 98.29 [degF] [place] 06-09-2019 11:39-0400 BP Diastolic 79 mm[Hg] [place] 06-09-2019 11:39-0400 BP Systolic 134 mm[Hg] [place] 06-09-2019 11:39-0400 Pulse (Heart Rate) 84 /min [place], [place] 06-09-2019 11:39-0400 Pulse Oximetry 95 % [place] 06-09-2019 11:39-0400 Respiratory Rate 20 /min [place] 06-05-2019 20:48-0400 BMI (Body Mass Index) 29.84 kg/m2 [facility] JOYCELYN 06-05-2019 20:48-0400 Body weight 99.79 kg Anselmo [facility] JOYCELYN 06-05-2019 20:48-0400 Height 182.9 cm Anselmo [facility] JOYCELYN Encounters Encounter Date Encounter Type Care Provider Facility Start: 08-07-2024 End: 08-07-2024 ambulatory [facility] Start: 07-24-2024 ambulatory [facility] Start: 07-02-2024 End: 07-02-2024 Office outpatient visit 25 minutes Adilson Salazar MD Work Phone: [facility] Comment on above: Type 2 diabetes thomas itus with hyperglycemia, with long-term current use of insulin (CMS/HCC) (Primary Dx); Essential hypertension, benign (CMS/HCC); Heart failure with improved ejection fraction (HFimpEF) (CMS/HCC); Coronary artery disease involving bad river band coronary artery of bad river band heart without angina pectoris (CMS/[facility]) Start: 07-02-2024 End: 07-02-2024 ambulatory ADILSON SALAZAR Not Available Start: 07-02-2024 End: 07-02-2024 Bamboo flowsheet Adilson Salazar MD Work Phone: [facility] Start: 07-02-2024 End: 07-02-2024 Bamboo flowsheet Adilson Salazar MD Work Phone: [facility] Start: 06-01-2024 End: 06-01-2024 ambulatory [facility] Start: 05-18-2024 End: 05-18-2024 Bamboo flowsheet Adilson Salazar MD Work Phone: [facility] Start: 05-18-2024 End: 05-18-2024 Bamboo flowsheet Adilson Salazar MD Work Phone: [facility] Start: 05-18-2024 End: 05-18-2024 Transitional care manage srvc 7 day discharge Adilson Salazar MD Work Phone: [facility] Comment on above: Single subsegmental pulmonary embolism without acute cor pulmonale (CMS/HCC) (Primary Dx); Pneumonia of right lower lobe due to infectious organism; NSTEMI (non-ST elevated myocardial infarction) ([facility]); Coronary artery disease involving bad river band coronary artery of bad river band heart without angina pectoris ([facility]); Type 2 diabetes mellitus with hyperglycemia, with long-term current use of insulin ([facility]) Start: 05-18-2024 End: 05-18-2024 ambulatory ADILSON SALAZAR Not Available Start: 05-09-2024 End: 05-11-2024 Clinisync Result Encounter Generic External Data Provider [facility] External [facility] Unsolicited Start: 05-09-2024 End: 05-11-2024 Clinisync Result Encounter Generic External Data Provider [facility] External [facility] Unsolicited Start: 05-02-2024 End: 05-02-2024 Bamboo flowsheet Adilson Salazar MD Work Phone: [facility] Start: 05-02-2024 End: 05-02-2024 Long flowsjac Salazar MD Work Phone: [facility] Start: 05-02-2024 End: 05-02-2024 ambulatory ADILSON SALAZAR Not Available Start: 05-02-2024 End: 05-02-2024 Office outpatient visit 25 minutes Adilson Salazar MD Work Phone: [facility] Comment on above: Heart failure with i mproved ejection fraction (HFimpEF) ([facility]) (Primary Dx); Type 2 diabetes mellitus with hyperglycemia, with long-term current use of insulin ([facility]); Coronary artery disease involving bad river band coronary artery of bad river band heart without angina pectoris ([facility]); Essential hypertension, benign ([facility]); Bilateral impacted cerumen Start: 04-10-2024 ambulatory VIVIAN Marx [facility] Start: 03-28-2024 End: 03-28-2024 ambulatory ADILSON SALAZAR Not Available Start: 03-13-2024 Evaluation and management of inpatient [facility] Start: 03-13-2024 Evaluation and management of inpatient JONATHAN [facility] Start: 03-13-2024 End: 03-14-2024 Evaluation and management of inpatient DASHAWN SAAB [facility] Start: 03-13-2024 End: 03-13-2024 Emergency department patient visit JONATHAN [facility] Start: 02-14-2024 End: 02-14-2024 ambulatory [facility] Start: 02-06-2024 ambulatory [facility] Start: 12-29-2023 End: 12-29-2023 ambulatory ADILSON SALAZAR Not Available Start: 10-31-2023 End: 10-31-2023 ambulatory YESENIAAlex SHANIQUA [facility] Start: 09-29-2023 Clinisync Result Encounter Adilson Salazar MD Work Phone: [facility] Unsolicited Start: 09-29-2023 Clinisync Result Encounter Adilson Salazar MD Work Phone: [facility] Unsolicited Start: 09-29-2023 Orders Only Adilson Bell Work Phone: [facility] Comment on above: Type 2 diabetes thomas itus with hyperglycemia, with long-term current use of insulin ([facility]) Start: 09-26-2023 End: 09-26-2023 ambulatory ADILSON SALAZAR Not Available Start: 09-20-2023 End: 09-20-2023 ambulatory [facility] Start: 08-05-2023 End: 08-05-2023 ambulatory ADILSON SALAZAR Not Available Start: 02-02-2023 End: 02-03-2023 ambulatory Milvia Palomo Facility:[facility] Start: 02-02-2023 End: 02-02-2023 Patient encounter procedure Milvia Palomo [facility] Start: 11-17-2022 End: 11-17-[address] ADILSON SALAZAR Facility: Start: 11-03-2022 End: 11-04-2022 ambulatory Milvia Palomo Facility:[facility] Start: 11-03-2022 End: 11-03-2022 Patient encounter procedure Milvia PriyaAbran Palomo [facility] Start: 10-25-2022 End: 10-26-2022 ambulatory MILVIA PALOMO Facility:[facility] Start: 10-12-2022 ambulatory Daniel BAEZA Ann-Marie ty:[facility] Start: 10-06-2022 End: 10-07-2022 ambulatory Milvia Palomo Facility:[facility] Start: 10-06-2022 End: 10-06-2022 Patient encounter procedure Milvia PowersAbran Danieljosiah [facility] Start: 09-22-2022 End: 09-22-2022 ambulatory Natasha Hassan Facility:[facility] Start: 09-20-2022 End: 09-20-2022 ambulatory MD Adilson Salazar Work Phone: [facility] Work Phone: Start: 09-20-2022 End: 09-20-2022 Patient encounter procedure MD Adilson Salazar Work Phone: [facility] Work Phone: Start: 08-06-2022 End: 08-07-[address] CURTIS GRACIA . Facility:[facility] Start: 08-04-2022 End: 08-05-2022 ambulatory Milvia Palomo Facility:[facility] Start: 08-04-2022 End: 08-04-2022 Patient encounter procedure Milvia Palomo [facility] Start: 08-03-2022 ambulatory Curtis GRACIA Facility :[facility] Start: 07-21-2022 Encounter for preprocedural laboratory examination DR CURTIS GRACIA . [facility] Start: 07-21-2022 End: 07-22-[address] CURTIS GRACIA . Facility: Start: 07-17-2022 End: 07-18-[address] CURTIS GRACIA . Facility: Start: 07-17-2022 End: 07-18-2022 Encounter for preprocedural laboratory examination DR CURTIS GRACIA . Facility: Start: 07-06-2022 End: 07-06-2022 ambulatory Milvia Palomo Facility:[facility] Start: 07-06-2022 End: 07-06-2022 Admission to same day surgery center Milvia Palomo [facility] Start: 06-30-2022 End: 07-01-2022 ambulatory Milvia Palomo Facility:[facility] Start: 06-30-2022 End: 06-30-2022 Patient encounter procedure Milvia Palomo [facility] Start: 06-29-2022 End: 09-28-2022 ambulatory Milvia Palomo Facility:[facility] Start: 06-25-2022 End: 06-26-2022 ambulatory Curtis GRACIA Facility:[facility] Start: 06-25-2022 End: 06-25-2022 Patient encounter procedure Curtis GRACIA General Surgery [facility] Start: 06-15-2022 End: 06-16-[address] ADILSON SALAZAR Facility: Start: 06-07-2022 End: 06-07-[address] ADILSON SALAZAR Facility: Start: 06-04-2022 ambulatory Daniel BAEZA Facility :[facility] Start: 06-03-2022 End: 09-27-2022 Recurring Milvia Palomo [facility] Start: 06-02-2022 End: 06-03-2022 ambulatory [facility] Start: 06-02-2022 End: 06-30-2022 Pre-admission assessment Milvia Palomo [facility] Start: 06-02-2022 End: 06-02-2022 Patient encounter procedure [facility] Start: 05-26-2022 End: 05-26-2022 ambulatory MD Adilson Salazar Work Phone: [facility] Work Phone: Start: 05-26-2022 End: 05-26-2022 Patient encounter procedure MD Adilson Salazar Work Phone: [facility] [place] Start: 04-21-2022 End: 04-22-2022 ambulatory Milvia Palomo Facility:[facility] Start: 04-21-2022 End: 04-21-2022 Patient encounter procedure Milvia Palomo [facility] Start: 01-26-2022 End: 01-27-[address] ADILSON SALAZAR Facility: Start: 06-05-2019 End: 06-09-2019 Evaluation and management of inpatient OSCAR HARP [facility] Start: 06-05-2019 End: 06-09-2019 Evaluation and management of inpatient Anselmo Garza Work Phone: [facility] Comment on above: Cerebrovascular acci dent (CVA), unspecified mechanism (HCC) (Primary Dx) Procedures Date Procedure Procedure Detail Performing Clinician Start: 05-09-2024 BLOOD CULTURE 1 Generic External Data Provider Start: 09-29-2023 MLR HEMOGLOBIN A1C Adilson Salazar MD Work Phone: Start: 09-20-2022 Positron emission tomography MD Adlison Salazar Work Phone: Start: 07-21-2022 Colonoscopy Adilson munoz MD Work Phone: Start: 07-06-2022 Biopsy of prostate Salud Palomo Start: 01-26-[address] ADILSON PEARSON Comment on above: Performed By: #### P TT, PT #### [facility] [address] [place] [address] Dr. Marcell Luque Start: 09-08-2020 Transrectal biopsy [...] HARP Start: 06-09-2019 HOME BIPAP OR CPAP SOCAR HARP Start: 06-09-2019 INCENTIVE SPIROMETRY RT OSCAR HARP Start: 06-09-2019 INITIATE OXYGEN THER APY PROTOCOL OSCAR HARP Start: 06-09-2019 Glucose blood reagent strip OSCAR HAPR Start: 06-09-2019 Assay of homocysteine L rds [...] Start: 06-08-2019 HOME BIPAP OR CPAP OSCAR HRAP Start: 06-08-2019 INCENTIVE SPIROMETRY RT OSCAR HARP [...] Start: 06-08-2019 Assay of phosphorus inorganic OSCAR AHRP Start: 06-08-2019 Basic metabolic pane l calcium [...] 06-07-2019 WOUND CARE OSCAR HARP Start: 06-07-2019 OPERATIONS SPECIALISTS REPORT OSCAR RITTER SUSHILA Start: 06-07-2019 Glucose blood reagent strip Oscar Harp Work Phone: Start: 06-07-2019 [facility] REPORT Hpf Sca nning Start: 06-07-2019 VERIFY [...] 06-06-2019 Basic metabolic pane l calcium total SOCAR HARP Start: 06-06-2019 Blood count complete auto&auto [...] Blood count complete auto&auto difrntl wbc Vipin Morales Work Phone: Start: 06-06-2019 Hemoglobin glycosylated [...] Start: 06-06-2019 IP CONSULT TO PHARMACY OSCAR HRAP Start: 06-06-2019 NURSING SWALLOW ASSESSMENT OSCAR HARP Start: 06-06-2019 OT EVAL AND TREAT OSCAR HARP Start: 06-06-2019 PLACE INTERMITTENT PNEUMATIC COMPRESSION DEVICE OSCAR HARP Start: 06-06-2019 PROVIDE PATIENT EDUC ATION MATERIALS OSCAR HARP Start: 06-06-2019 PT EVAL AND TREAT OSCAR HARP Start: 06-06-2019 PULSE OXIMETRY, CONTINUOUS OSCAR HARP Start: 06-06-2019 REASON FOR NO CHEMIC AL VTE PROPHYLAXIS OSCAR HARP Start: 06-06-2019 COMMERCIAL CREDIT SPECIALIST EVAL AND TREAT OSCAR HARP Start: 06-06-2019 [...] OSCAR HARP Start: 06-05-2019 NOTIFY PHYSICIAN (SPECIFY) OCSAR HARP Start: 06-05-2019 NURSING COMMUNICATION Ciera HARP [...] Garza Work Phone: Start: 08-22-2011 Colonoscopy Curtis DAVIS Arthroplasty of knee Milvia L ue Arthroplasty [...] 07-21-2032 Screening for malignant neoplasm of colon [facility] Start: 03-13-2025 Urine screening for protein Diabetes: Urine Protein Screening [facility] Start: 10-02-2024 End: 10-02-2024 Patient encounter procedure 10/02/2024 1:30 PM EST Office Visit [facility] [address] [place] [address] Adilson Salazar MD [address] [place] [phone] [facility] Start: 09-14-2024 Hemoglobin A1c measurement Diabetes: Hemoglobin A1C [facility] Start: 07-02-2024 End: 07-02-2024 Patient encounter procedure 07/02/2024 2:30 PM EST Office Visit [facility] [address] [place] [id number] Adilson Salazar MD [address] [place] [phone] [facility] Start: 07-02-2024 End: 07-02-2025 Hemoglobin A1c/Hemoglobin.total in Blood Hemoglobin A1c Lab Routine Type 2 diabetes mellitus with hyperglycemia, with long-term current use of insulin ([facility]) Expected: 07/02/2024 (Approximate), Expires: 07/02/2025 [facility] Work Phone: Comment on above: Expected: 07/02/2024 (Approximate), Expi res: 07/02/2025 Start: 06-17-2024 Urine screening for protein Diabetes: Urine Protein Screening [facility] Start: 06-14-2024 Hemoglobin A1c measurement Diabetes: Hemoglobin A1C [facility] Start: 05-18-2024 End: 05-18-2024 Patient encounter procedure [facility] Comment on above: Arrived Start: 04-22-2024 Influenza vaccination Influenza Vaccine (#1) [facility] Start: 12-29-2023 End: 12-29-2023 Patient encounter procedure 12/29/2023 11:15 AM EDT Office Visit [facility] [address] [place] [address] Adilson Salazar MD [address] [place] [address] [facility] Start: 09-17-2023 Hemoglobin A1c measurement Diabetes: Hemoglobin A1C [facility] Start: 04-22-2023 Influenza vaccination Influenza Vaccine (#1) [facility] Start: 05-26-2022 MR Prostate WO and W contrast IV [facility] Start: 05-26-2022 MR prostate wo/w con MR prostate wo/w con [facility] Start: 06-08-2020 Creatinine monitoring Creatinine monitoring [place], [place] Start: 06-08-2020 Potassium monitoring Potassium monitoring [place], [place] Start: 06-06-2020 Lipid screen Lipid screen [place] Start: 09-06-2019 A1C test (Diabetic or Prediabetic) A1C test (Diabetic or Prediabetic) [place] Start: 06-05-2019 Annual Wellness Visit (AWV) Annual Wellness Visit (AWV) [place] Start: 04-22-2019 Influenza vaccination Flu vaccine (#1) [place] Start: 03-20-2014 Pneumococcal Vaccine: 65+ Years (2 - PCV) Pneumococcal Vaccine: 65+ Years (2 - PCV) [facility] Start: 03-20-2014 Pneumococcal Vaccine: 65+ Years (2 of 2 - PCV) Pneumococcal Vaccine: 65+ Years (2 of 2 - PCV) [facility] Start: 11-08-2005 Colon cancer screen colonoscopy Colon cancer screen colonoscopy [place], [place] Start: 11-08-2005 Shingles Vaccine (1 of 2) Shingles Vaccine (1 of 2) [place], [place] Start: 11-08-1974 DTaP/Tdap/Td vaccine (1 - Tdap) DTaP/Tdap/Td vaccine (1 - Tdap) [place] Start: 11-08-1973 Diabetic microalbuminuria test Diabetic microalbuminuria test [place] Start: 11-08-1970 HIV screen HIV screen [place] Start: 11-08-1965 [object Object] Diabetic foot exam [place] Start: 11-08-1965 Diabetic retinal exam Diabetic retinal exam [place], [place] Start: 11-08-1965 Glaucoma screening Diabetes: Retinopathy Screening [facility] Start: 1955 Hepatitis C screen Hepatitis C screen [place], [place] Start: 1955 Screening for malignant neoplasm of colon [facility] End: 06-09-2019 ANTI-PHOSPHOLIPID AB ANTI-PHOSPHOLIPID AB Lab Routine One Time for 1 Occurrences starting 06/09/2019 until 06/09/2019 [place] Comment on above: One Time for 1 Occurrences starting 05/22 until 06/09/2019 ANTI-PHOSPHOLIPID AB ANTI-PHOSPH OLIPID AB Lab Routine 06/09/2019 9:41 AM EDT [place] Basic metabolic 2000 panel Basic Metabolic Panel Lab Routine Daily until discontinued starting 06/07/2019, 3 completed [place] Comment on above: Daily until discontinued starting 2018, 3 completed BLOOD CULTURE 1 BLOOD CULTURE 1 Lab Routine 05/09/2024 10:39 AM EDT [facility] CBC Auto Differential CBC Auto D ifferential Lab Routine Daily until discontinued starting 06/07/2019, 3 completed [facility] [place] Comment on above: Daily until discontinued starting 2018, 3 completed End: 06-07-2019 Diagnostic Cardiac Substation Design Draftsperson Procedure Diagnostic Cardiac Substation Design Draftsperson Procedure Cardiac Cath Routine One Time for 1 Occurrences starting 06/07/2019 until 06/07/2019 [facility] [place] Comment on above: One Time for 1 Occurrences starting 05/22 until 06/07/2019 End: 06-09-2019 Dilute Deepak Viper Dilute Deepak Viper Lab Routine One Time for 1 Occurrences starting 06/09/2019 until 06/09/2019 [facility] [place] Comment on above: One Time for 1 Occurrences starting 05/22 until 06/09/2019 Dilute Deepak Viper Dilute Jaime ell Viper Lab Routine 06/09/2019 9:41 AM EDT [facility] End: 06-09-2019 FACTOR 5 LEIDEN FACTOR 5 LEIDEN Lab Routine One Time for 1 Occurrences starting 06/09/2019 until 06/09/2019 [facility] [place] Comment on above: One Time for 1 Occurrences starting 05/22 until 06/09/2019 End: 06-09-2019 FACTOR 8 ASSAY FACTOR 8 ASSAY Lab Routine One Time for 1 Occurrences starting 06/09/2019 until 06/09/2019 [facility] Comment on above: One Time for 1 Occurrences starting 05/22 until 06/09/2019 FACTOR 8 ASSAY FACTOR 8 ASSAY L ab Routine 06/09/2019 9:41 AM [facility]T [facility] BIPAP or CPAP Home BIPAP or CPAP Respiratory Care Routine Daily until discontinued starting 06/07/2019 [facility] Comment on above: Daily until discontinued starting 2018 Incentive spirometry Incentive s pirometry Respiratory Care Routine Daily until discontinued starting 06/06/2019 [facility] Comment on above: Daily until discontinued starting 2018 Initiate Oxygen Ther apy Protocol Initiate Oxygen Therapy Protocol Respiratory Care Routine Daily until discontinued starting 06/07/2019 [facility] Comment on above: Daily until discontinued starting 2018 [facility] on above: 4X Daily (AC & HS) until discontinued st arting 06/06/2019 As Needed until disc ontinued starting 06/06/2019 End: 06-09-2019 Protein C Functional Protein C Functional Lab Routine One Time for 1 Occurrences starting 06/09/2019 until 06/09/2019 [facility] Comment on above: One Time for 1 Occurrences starting 05/22 until 06/09/2019 Protein C Functional Protein C F unctional Lab Routine 06/09/2019 9:41 AM EDT [facility] End: 06-09-2019 Protein S Functional Protein S Functional Lab Routine One Time for 1 Occurrences starting 06/09/2019 until 06/09/2019 [facility] Comment on above: One Time for 1 Occurrences starting 05/22 until 06/09/2019 Protein S Functional Protein S F unctional Lab Routine 06/09/2019 9:41 AM EDT [facility] End: 06-09-2019 Prothrombin Gene Mutation Prothrombin Gene Mutation Lab Routine One Time for 1 Occurrences starting 06/09/2019 until 06/09/2019 [facility] Comment on above: One Time for 1 Occurrences starting 05/22 until 06/09/2019 End: 06-07-2019 Pulse oximetry, continuous Pulse oximetry, continuous Respiratory Care Routine Every 4hr for 24 Hours starting 06/06/2019 until 06/07/2019 [facility] Comment on above: Every 4hr for 24 Hours starting 06/06/20 until 06/07/2019 Immunizations Immunization Date Immunization Notes Care Provider Tyra dailey 03-20-2013 pneumococcal polysaccharide vaccine, 23 valent Milvia Palomo [facility] Payers Date Payer Category Payer Unknown [employer]IED B[employer] [id number] 2023-Present [address] [place] [id number] 2023 Unknown [id number] 2023 Private Health Insurance [id number] 2022 Self-pay [id number] 2018 Medicare MEDICARE MEDICAR E PART A AND B xxxxxxxxxxx 2018-Present [phone] [place] [address] xxxxxxxxxxx [id number] 1997 Medicare [id number] 1965 Unknown [id number] 2.16.840.1.467716.3.579.2 .1259 1959 Medicare [id number] 1955 Unknown [id number] 2.16.840.1.663532.3.579.2 .175 1955 Unknown [id number] 2.16.840.1.878303.3.579.2 .593 1955 Unknown [id number] 2.16.840.1.899549.3.579.2 .593 1955 Unknown [id number] 2.16.840.1.119065.3.579.2 .593 1955 Unknown [id number] 2.16.840.1.424507.3.579.2 .593 1955 Unknown [id number] 2.16.840.1.731671.3.579.2 .593 1955 Unknown [id number] 2.16.840.1.472148.3.579.2 .593 1955 Unknown [id number] 2.16.840.1.557638.3.579.2 .593 1955 Unknown [id number] 2.16.840.1.238093.3.579.2 .593 1955 Unknown [id number] 2.16.840.1.128183.3.579.2 .727 1955 Unknown [id number] 2.16.840.1.542752.3.579.2 .72 1955 Unknown [id number] 2.16.840.1.951631.3.579.2 .727 1955 Unknown [id number] 2.16.840.1.085713.3.579.2 .72 1955 Unknown [id number] 2.16.840.1.796433.3.579.2 .72 1955 Unknown [id number] 2.16.840.1.546799.3.579.2 .1955 Unknown [id number] 2.16.840.1.160226.3.579.2 .72 1955 Unknown [id number] 2.16.840.1.905823.3.579.2 .72 1955 Unknown [id number] 2.16.840.1.464041.3.579.2 .72 1955 Unknown [id number] 2.16.840.1.402620.3.579.2 .72 1955 Unknown [id number] 2.16.840.1.360830.3.579.2 .72 1955 Unknown [id number] 2.16.840.1.696138.3.579.2 .72 1955 Unknown [id number] 2.16.840.1.163790.3.579.2 .72 1955 Unknown [id number] 2.16.840.1.383713.3.579.2 .1259 1955 Unknown [id number] 2.16.840.1.007477.3.579.2 .1259 1955 Unknown [id number] 2.16.840.1.749372.3.579.2 .1259 1955 Unknown [id number] 2.16.840.1.560161.3.579.2 .1259 1955 Unknown [id number] 2.16.840.1.075729.3.579.2 .1259 1955 Unknown [id number] 2.16.840.1.724510.3.579.2 .1259 1955 Unknown [id number] 2.16.840.1.135832.3.579.2 .1259 Unknown [id number] Medicare Medicare Outpatient [id number] Private Health Insurance [facility] [id number] Unknown [id number] 2.16.840.1.208525.3.579.2 .531 Social History Date Type Detail Facility Start: 06-06-2019 End: 08-05-2023 Tobacco smoking status AKIS Never smoker [facility] Start: 06-06-2019 End: 05-02-2024 Alcohol intake Never [place] Start: 06-05-2019 History SDOH Alcohol Frequency 1 [place] Start: 1955 Sex Assigned At Not on file M [place], [place] Tobacco smoking status Never [facility] Start: 06-25-2021 End: 08-04-2022 Tobacco smoking status NHIS Ex-smoker (finding) [facility] Start: 1955 Sex Assigned At Male F [facility] Start: 08-05-2023 Tobacco use and exposure Smokeless tobacco non-user [facility] Start: 09-26-2023 End: 05-02-2024 Alcohol intake Ex-drinker (finding) [facility] Start: 09-26-2023 End: 05-02-2024 History of Social function [facility] Medical Equipment Procedure Code Equipment Code Equipment Origin al Text Equipment Identifier Dates 1 each by In Vit ro route in the morning and 1 each in the evening and 1 each before bedtime. [id number] Start: 09-26-2023 1 each in the morning and 1 each in the evening and 1 each before bedtime. [id number] Start: 09-26-2023 Functional Status Date Assessment Result Facility 02-02-2023 Functional Status N/A [facility] 11-03-2022 Functional Status N/A [facility] 10-06-2022 Functional Status N/A [facility] 08-04-2022 Functional Status N/A [facility] 06-30-2022 Functional Status No [facility] 06-25-2022 Functional Status N/A [facility] 06-02-2022 Functional Status N/A [facility] 04-21-2022 Functional Status N/A [facility] Clinical Notes 04-21-2022 to 08-07-2024 Adilson Salazar [...] Ms. Eunice Marte is a 68 y.o. -English male with history of HTN, HLD, Diabetes Mellitus Type 2, Stroke (04/2015 resulted in right sided weakness since has improved), CAD, OH in 2021 on ASA 81mg s/p implantable [...] urologist Milvia Daniel MD on 07/06/2022 at [facility] for a total of 24 cores (12 [...] distant metastatic disease. Decipher prostate biopsy genomic lasting machine operator bed was obtained on prostate biopsy above, reported [...] nodule, cT2a. I reviewed and discussed outside systems consultant note, outside laboratory tests, outside imaging including MRI prostate and PSMA, pathology result of prostate biopsy, and decipher score. Mr. Marte has unfavorable intermediate risk prostate cancer by NCCN criteria since he has 2 intermediate risk factors (PSA 11.09 ng/mL and GG2 prostate cancer), however, decipher genomic lasting machine operator bed designate patient as a high risk with [...] bone mineral density (more content not included)... [facility] 07-02-2024 History of Present illness Narrative Associated [...] PRN. Associated Problem(s): Coronary artery disease involving bad river band coronary artery of bad river band heart without angina pectoris (CMS/HCC) Continue medication [...] Orders Hemoglobin A1c Coronary artery disease involving bad river band coronary artery of bad river band heart without angina pectoris (CMS/HCC) Continue medication and follow with cardiology. Heart failure with improved ejection fraction (HFimpEF) (CMS/HCC) Edema stable and continue medication. documented in this encounter [facility] 06-01-2024 Note [place] [facility] [...] Prostate cancer ([facility]) Cerebrovascular accident (CVA) ([facility]) History of diabetes mellitus History of DVT (deep vein thrombosis) History of hypertension History of ischemic left MCA stroke Hypercholesterolemia Hypertension Partial seizure ([facility]) Type 2 diabetes mellitus without complication, with long-term current use of insulin ([facility]) Osteoarthritis of knee Malignant neoplasm of prostate ([facility]) NSTEMI (non-ST elevated myocardial infarction) ([facility]) Chest pain BPH associated with nocturia Essential hypertension, benign Type 2 diabetes mellitus with hyperglycemia ([facility]) Vitamin D deficiency ALLISON on CPAP Acute anemia Chronic systolic heart failure ([facility]) rn long term care (current) use of insulin ([facility]) Mixed hyperlipidemia Elevated lipoprotein(a) Coronary artery disease involving bad river band coronary artery of bad river band heart without angina pectoris Family History Problem [...] Rfl: 11 ezetimi (more content not included)... [facility] 05-18-2024 History of Present illness Narrative Associated [...] cardiology. Associated Problem(s): Coronary artery disease involving bad river band coronary artery of bad river band heart without angina pectoris ([facility]) Continue medication and follow with cardiology. Images from the original note were not included. Subjective Patient ID: Eunice Marte is a 68 y.o. male who presents for Follow-up ([facility] f/u). Hospital follow up from 05/09-05/11 [...] and continue medication. Coronary artery disease involving bad river band coronary artery of bad river band heart without angina pectoris ([facility]/HCC) Continue medication and follow with cardiology. Single subsegmental pulmonary embolism without acute cor pulmonale ([facility]/HCC) - Primary Recent PE and continue Eliquis. Prior DVT years ago and need life long anticoagulation. Pneumonia of right lower lobe due to infectious organism Recent pneumonia and complete levaquin. NSTEMI (non-ST elevated myocardial infarction) ([facility]/HCC) Recent admission and cath in February normal. Continue medication and follow with cardiology. documented in this encounter [facility] 05-02-2024 History of Present illness Narrative Associated Problem(s): Type 2 diabetes mellitus with hyperglycemia (CMS/HCC) BS stable and add ozempic. Associated Problem(s): Heart failure with improved ejection fraction (HFimpEF) ([facility]/HCC) Worsening edema and start lasix. Add ozempic. Stop actos as possibly causing edema. If no improvement will need to add aldactone. Associated Problem(s): Essential hypertension, benign (CMS/HCC) BP elevated but previously controlled and monitor PRN. Associated Problem(s): Coronary artery disease involving bad river band coronary artery of bad river band heart without angina pectoris (CMS/HCC) Add ozempic [...] Items Addressed This Visit Essential hypertension, benign ([facility]) BP elevated but previously controlled and monitor PRN. Type 2 diabetes mellitus with hyperglycemia ([facility]) BS stable and add ozempic. Relevant Medications semaglutide (Ozempic, 0.25 or 0.5 MG/DOSE,) 2 MG/1.5ML solution pen-injector Coronary artery disease involving bad river band coronary artery of bad river band heart without angina pectoris ([facility]) Add ozempic and follow with cardiology. Heart failure with improved ejection fraction (HFimpEF) ([facility]) - Primary Worsening edema and start lasix. [...] q-tips inside ear. documented in this encounter [facility] 04-17-2024 Note Received paper copy of [...] [facility] 04/24/24 11:31 AM [facility] [phone] [facility] 04-17-2024 Note I called the patient and he received the medication and does not have any questions at this time. Antoinette Gan, medical biller/coder [facility] 05/01/24 2:05 PM [facility] 04-17-2024 Note PA still in process, follow up on 04/23 for PA status. Rajiv Lora, Animal Ride Attendant [facility], [id number] 04/19/24 11:16 AM [facility] 04-17-2024 Note Specialty Pharmacy N [place]: [place] Supervising Physician & Clinic:?? Vivian Billy NP; cardiology Eunice Marte is a 68 y.o. year old male patient with PMH of: Past Medical History: Diagnosis Date Asthma BPH (benign prostatic hyperplasia) CAD (coronary artery disease) CKD (chronic kidney disease), stage III ([facility]) Depression DM (diabetes mellitus) ([facility]) 2007 Type II Erectile dysfunction GERD (gastroesophageal reflux disease) H/O deep venous thrombosis HLD (hyperlipidemia) HTN (hypertension) Myocardial infarction ([facility]) 2021 ALLISON on CPAP Prostate cancer ([facility]) Status post placement of implantable loop recorder Stroke ([facility]) 04/2015 right sided weakness Patient Active Problem List Diagnosis Prostate cancer ([facility]) Cerebrovascular accident (CVA) ([facility]) History of diabetes mellitus History of DVT (deep vein thrombosis) History of hypertension History of ischemic left MCA stroke Hypercholesterolemia Hypertension Partial seizure ([facility]) Type 2 diabetes mellitus without complication, with long-term current use of insulin ([facility]) Osteoarthritis of knee Malignant neoplasm of prostate ([facility]) NSTEMI (non-ST elevated myocardial infarction) ([facility]) Chest pain BPH associated with nocturia Essential hypertension, benign Type 2 diabetes mellitus with hyperglycemia ([facility]) Vitamin D deficiency ALLISON on CPAP Acute anemia Chronic systolic heart failure ([facility]) retirement (current) use of insulin ([facility]) Mixed hyperlipidemia Elevated lipoprotein(a) Coronary artery disease involving bad river band coronary artery of bad river band heart without angina pectoris Allergies Allergen Reactions [...] JIGARCP 04/17/24 2:13 PM [facility] [phone] [facility] 04-17-2024 Note Called to try to do [id number] and it was approved for a year. Medication must be filled at [facility] specialty pharmacy. Will ask Rx to be sent there and follow-up to make sure the patient receives it. July Rankin PharmD, JEFFREY 04/25/24 3:05 PM [facility] [phone] [facility] 04-17-2024 Note New script for Repat wilhelm received to treat E78.2, I25.10 mixed hyperlipidemia and Atherosclerotic heart disease. PA required? Yes Routed to [facility] for initial workup. Reddy Barnard, [facility] 04/17/24 at 11:40 AM [facility] 04-17-2024 Note Prior Authorization for Repatha has been denied on 04/20/24. Due to the Lipid panel on 03/15/24 being normal, Will fax appeal with LPA and ASCVD-related documents. Contacted prescriber and was told that due to the ASCVD history the goal for the LDL is actually <55, making him a candidate for the medication. Follow up on 04/26/24. Rajiv Lora, Animal Ride Attendant [facility], [id number] 04/24/24 10:31 AM [facility] 04-17-2024 Note PharmD Consult - PCS K9i [...] education to patient. Irasema White, PharmD, PGY1 Forming Tube Selector [facility] 04/17/24 [facility] 04-17-2024 Note PA was submitted via CMM, waiting on a determination. Antoinette Gan CPhT [facility] 04/17/24 3:38 PM [facility] 04-10-2024 Note [place] [facility] [...] GERD, left MCA CVA in 2014, and OH in 2021. On 03/12/2024 he reported chest pain and chest tightness w/o radiation at home, and was transported to [facility] via ambulance. In the ambulance, his pain resolved with the administration of asprin and nitroglycerine. His troponin on arrival to [place] ED was 104.3, so he was transferred [...] Prostate cancer ([facility]) Cerebrovascular accident (CVA) ([facility]) History of diabetes mellitus History of DVT (deep vein thrombosis) History of hypertension History of ischemic left MCA stroke Hypercholesterolemia Hypertension Partial seizure ([facility]) Type 2 diabetes mellitus without complication, with long-term current use of insulin ([facility]) Osteoarthritis of knee Malignant neoplasm of prostate ([facility]) NSTEMI (non-ST elevated myocardial infarction) ([facility]) Chest pain BPH associated with nocturia Essential hypertension, benign Type 2 diabetes mellitus with hyperglycemia ([facility]) Vitamin D deficiency ALLISON on CPAP Acute anemia Chronic systolic heart failure ([facility]) retirement (current) use of insulin ([facility]) Mixed hyperlipidemia Elevated lipoprotein(a) Coronary artery disease involving bad river band coronary artery of bad river band heart without angina pectoris Family History Problem [...] Normal heart elbert (more content not included)... [facility] 03-14-2024 Note Attestation signed by Arnoldo Killian [...] PCSK9 inhibitor as outpatient. Arnoldo Killian MD, [facility] Cardiology Progress Note Subjective Subjective: Eunice [...] Value Ventricular Rate 58 Atrial Rate 58 PA Interval 232 QRS DURATION 82 QT Interval 446 QTC CALCULATION(BAZETT) 437 P [place] 62 R-[place] 4 T Wave [place] 49 Impression Sinus bradycardia with 1st degree A-V block Otherwise normal ECG When compared with ECG of 23-FEB-2023 14:05, PA interval has increased Criteria for Septal infarct [...] [facility] [address] [place] [address] [phone] (fax) Echocardiogram-[facility] Name: [...] - 4cm) Aorti (more content not included)... [facility] 03-14-2024 Note Hospital Medicine Discharge Summary Final [...] GERD, left MCA CVA in 2014, and OH in 2021. On 03/12/2024 he reported chest pain and chest tightness w/o radiation at home, and was transported to [facility] via ambulance. In the ambulance, his pain resolved with the administration of asprin and nitroglycerine. His troponin on arrival to [place] ED was 104.3, so he was transferred [...] Center 04/10/2024 9:15 AM Vivian Billy NP [facility] 08/07/2024 10:15 AM Phyllis Acosta MD [facility] ONC [facility] 10/29/2024 10:00 AM Silvano Martinez [facility] RAD ONC [facility] Your medication list CHANGE how you [...] At Discharge: Pen (more content not included)... [facility] 03-14-2024 Note Patient: Eunice bueno Procedure Information Date/Time: 03/14/24 1024 Procedure: Coronary angiography Location: [facility] 2 [facility] / [facility] (Cath) Providers: Mata Burleson MD [...] Plan discussed with attending. Additional Equipment Requests [facility] 03-14-2024 Note Hospital Medicine Daily Progress Note - 03/14/2024 11:50 AM; Room: [facility]3104- Admission: 03/13/2024 4:55 AM; Length of stay: 1 days THE HOSPITALIST TEAM PREFERS TO USE [employer] CHAT FOR COMMUNICATION 7AM-7PM. IF I DO NOT RESPOND WITHIN 15 MINUTES, PLEASE PAGE ME/CALL THROUGH THE TRANSFORMER MOLDER. FROM 7PM-7AM, PLEASE PAGE [phone](COVR) Code Status: Full Code Barriers to Discharge: [...] GERD, left MCA CVA in 2014, and OH in 2021. On 03/12/2024 he reported chest pain and chest tightness w/o radiation at home, and was transported to [facility] via ambulance. In the ambulance, his pain resolved with the administration of asprin and nitroglycerine. His troponin on arrival to [place] ED was 104.3, so he was transferred [...] Principal Problem: NSTEMI (non-ST elevated myocardial infarction) ([facility]/HCC) Active Problems: Hypercholesterolemia Chest pain BPH associated with nocturia Essential hypertension, benign Type 2 diabetes mellitus with hyperglycemia (CMS/HCC) ALLISON (obstructive sleep apnea) Acute anemia Chronic systolic heart failure (CMS/HCC) rn long term care (current) use of insulin (CMS/HCC) Assessment and [...] recorder in place; (more content not included)... [facility] 03-13-2024 Note Case was discussed w ith the ZACH on 03/13/2024. I agree with the history, physical, assessment, and plan of care. I discussed the findings and therapeutic plan. I agree with the documentation, except for any updates below. Puja Montes De Oca MD [facility] 03-13-2024 Note 03/13/24 1351 Admission Assessment Questions [...] Status Interested Does the patient have a case management assistant assigned to them through their insurance? No Living Arrangement (Current/Prior to Hospitalization) Private residence;Home self care (lives w/family in one story home. No entry stairs) Does the patient have history of HHC or SNF? Yes (HHC in past does not recall name. Was in a rehab facility in [place]) Assistive Device Cane;Other (Comment) (CPAP) Patient's goal [...] to send link and activate MyChart? No [facility] 03-13-2024 Note Hospital Medicine History and Physical 03/13/2024 8:16 AM THE HOSPITALIST TEAM PREFERS TO USE [employer] CHAT FOR COMMUNICATION 7AM-7PM. IF I DO NOT RESPOND WITHIN 15 MINUTES, PLEASE PAGE ME/CALL THROUGH THE TRANSFORMER MOLDER. FROM 7PM-7AM, PLEASE PAGE [phone](COVR) Chief Complaint No chief complaint on file. History of Present Illness Eunice Marte is an 68 y.o. male who came from [facility] with NSTEMI. Patient has past medical history of hyperlipidemia, hypertension, CKD 3, diabetes mellitus type 2 with long-term use of insulin, CVA in 2014, OH in 2021. Patient reports last night he began to have chest pain while watching TV, described as tightness in the middle of his chest, no radiation. Patient received nitro and aspirin en route to the [facility] which relieved his chest pain. His troponin [...] Date Noted NSTEMI (non-ST elevated myocardial infarction) ([facility]) 03/13/2024 Chest pain 03/13/2024 BPH associated with nocturia 08/05/2023 Essential hypertension, benign 08/05/2023 Type 2 diabetes mellitus with hyperglycemia ([facility]) 08/05/2023 Vitamin D deficiency 08/05/2023 History of diabetes mellitus 01/28/2023 History of DVT (deep vein thrombosis) 01/28/2023 History of hypertension 01/28/2023 History of ischemic left MCA stroke 01/28/2023 Partial seizure ([facility]) 01/28/2023 Prostate cancer ([facility]) 11/30/2022 Cerebrovascular accident (CVA) ([facility]) 06/05/2019 Hyperlipidemia 01/16/2014 Hypertension 01/16/2014 Type 2 diabetes mellitus without complication ([facility]) 01/16/2014 Osteoarthritis of knee 01/16/2014 Malignant neoplasm of prostate ([facility]) 05/30/2023 Assessment and Plan NSTEMI r/o ischemia [...] hyperglycemia SSI ACHS (more content not included)... [facility] 02-14-2024 Note aPATIENT: Eunice noble DATE OF : 1955 DATE OF VISIT: 02/14/24 Urology Clinic H&P PHYLLIS ACOSTA M.D., F.A.C.S. 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 Eunice Marte is a 68 y.o. -English male with history of HTN, HLD, Diabetes Mellitus Type 2, Stroke (04/2015 resulted in right sided weakness since has improved), CAD, OH in 2021 on ASA 81mg s/p implantable [...] urologist Milvia Daniel MD on 07/06/2022 at [facility] for a total of 24 cores (12 systematic cores x2 and 4 cores obtained from MARÍA ELENA #1). Pathology per [facility] review revealed acinar adenocarcinoma of the prostate, Cambridge 3+4= 7; GG 2 involving 2/13 in [...] distant metastatic disease. Decipher prostate biopsy genomic lasting machine operator bed was obtained on prostate biopsy above, reported [...] nodule, cT2a. I reviewed and discussed outside systems consultant note, outside laboratory tests, outside imaging including MRI prostate and PSMA, pathology result of prostate biopsy, and decipher score. Mr. Marte has unfavorable intermediate risk prostate cancer by NCCN criteria since he has 2 intermediate risk factors (PSA 11.09 ng/mL and GG2 prostate cancer), however, decipher genomic lasting machine operator bed designate patient as a high risk with [...] systolic function, EF (more content not included)... [facility] 10-31-2023 Note [facility] [place] a t [facility] Department of Radiation Oncology [address] [place] [address] RADIATION ONCOLOGY FOLLOW UP NOTE Date of [...] right sided weakness since has improved), CAD, OH in 2021 on ASA 81mg s/p implantable [...] bilaterally. LYMPH: No appreciable adenopathy. NEURO: AOx4, senior informatica developer grossly normal, ambulates with a cane, mild residual weakness from remote CVA. PSYCH: Appropriate affect for the clinical situation. Insight and judgment not impaired. LAB (more content not included)... [facility] 10-31-2023 Note PRINTING FILM STRIPPER: Prostate Prostate completed 07/2023. Vitals WNL. Pt denies any dysuria, hematuria. Pt. Denies any diarrhea. Pt. Denies any pain. [facility] 09-20-2023 Note aPATIENT: Eunice noble DATE OF : 1955 DATE OF VISIT: 09/20/23 Urology Clinic H&P PHYLLIS ACOSTA M.D., F.A.C.S. 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 Eunice Marte is a 67 y.o. -English male with history of HTN, HLD, Diabetes Mellitus Type 2, Stroke (04/2015 resulted in right sided weakness since has improved), CAD, OH in 2021 on ASA 81mg s/p implantable [...] urologist Milvia Daniel MD on 07/06/2022 at [facility] for a total of 24 cores (12 [...] distant metastatic disease. Decipher prostate biopsy genomic lasting machine operator bed was obtained on prostate biopsy above, reported [...] nodule, cT2a. I reviewed and discussed outside systems consultant note, outside laboratory tests, outside imaging including MRI prostate and PSMA, pathology result of prostate biopsy, and decipher score. Mr. Marte has unfavorable intermediate risk prostate cancer by NCCN criteria since he has 2 intermediate risk factors (PSA 11.09 ng/mL and GG2 prostate cancer), however, decipher genomic lasting machine operator bed designate patient as a high risk with [...] regional wall motion (more content not included)... [facility] 02-02-2023 Hospital Discharge instructions Patient Education 02/02/2023 [...] similar to normal prostate cells (well differentiated). Gilbert 7: This indicates that the cancer cells look somewhat similar to normal prostate cells (moderately differentiated). Cambridge 8, 9, or 10: This indicates that [...] stress of having cancer. General instructions Take koxe-thx-mrizeaj and prescription medicines only as told by your health care provider. If you have to go to the hospital, notify your cancer specialist (oncologist). Keep all follow-up visits. This is important. Where to find more information English Cancer Society: www.cancer.org English Society of Clinical Oncology: www.cancer.net National Cancer Re[place]: www.cancer.gov Contact a health care provider if: [...] provider. Document Revised: 11/04/2021 Document Reviewed: 11/04/2021 [employer] Patient Education 2022 Ship It Bag Check. Follow Up Care 11/03/2022 08:38:11 With:Dewey COTTO, ARIAN Alegria, URO Address: When: Unknown [facility] 11-03-2022 Hospital Discharge instructions Patient Education [...] who: Are older than age 65. Are -English. Are obese. Have a family history of [...] cells. Follow these instructions at home: Take lnoi-cyq-psttien and prescription medicines only as told by [...] 08/08/2006 Document Revised: 07/21/2018 Document Reviewed: 04/18/2017 [employer] Patient Education 2020 Benefitter Follow Up Care 10/06/2022 08:46:11 With:Dewey COTTO, ARIAN Alegria, URO Address: When: Unknown [facility] 10-06-2022 Hospital Discharge instructions Patient Education [...] 07/25/2013 Document Revised: 03/28/2019 Document Reviewed: 03/28/2019 [employer] Patient Education 2020 Ship It Bag Check. 10/06/2022 08:07:38 Brachytherapy for Prostate Cancer Brachytherapy [...] including vitamins, herbs, eye drops, creams, and bhyc-reo-thbgksg medicines. Any problems you or family members [...] 01/16/2007 Document Revised: 07/21/2018 Document Reviewed: 08/17/2017 [employer] Patient Education 2020 Ship It Bag Check. 10/06/2022 08:07:36 Laparoscopic Prostatectomy Laparoscopic Prostatectomy Laparoscopic [...] including vitamins, herbs, eye drops, creams, and qljs-lnq-brheqgw medicines. Any problems you or family members [...] 08/08/2006 Document Revised: 07/21/2018 Document Reviewed: 07/25/2017 [employer] Patient Education 2020 Ship It Bag Check. 10/06/2022 07:50:11 Prostate Cancer Prostate Cancer The [...] who: Are older than age 65. Are -English. Are obese. Have a family history of [...] cells. Follow these instructions at home: Take inko-kfn-khcoybo and prescription medicines only as told by [...] 08/08/2006 Document Revised: 07/21/2018 Document Reviewed: 04/18/2017 [employer] Patient Education 2019 Ship It Bag Check. Follow Up Care 08/04/2022 10:29:21 With:Dewey COTTO, ARIAN Alegria, URO Address: When: Unknown [facility] 08-04-2022 Hospital Discharge instructions Patient [...] including vitamins, herbs, eye drops, creams, and acoo-hfa-mdtkcjm medicines. Any problems you or family members [...] 01/16/2007 Document Revised: 07/21/2018 Document Reviewed: 08/17/2017 [employer] Patient Education 2020 Ship It Bag Check. Follow Up Care 06/02/2022 10:42:40 With:Dewey COTTO, Milvia Lucia, URL, URO Address: When:1 month Comments:Discuss PSMA PET scan & treatment options [facility] 07-21-2022 Note OPERATIVE NOTE OPERATION DATE: [...] good condition. CC: Adilson Salazar M.D. [facility] 07-06-2022 Hospital Discharge instructions Patient Education 07/06/2022 [...] for your post-operative appointment in 1-2 weeks [phone] or [phone] Follow Up Care 06/02/2022 10:25:59 With:Milvia Palomo Address: [address] [place] [address]- [phone] Business (1) [address] [address] [phone] Business (1) When: Unknown Comments:Office to followup appointment in 2 weeks for pathology review [facility] 07-06-2022 Evaluation + Plan note Extrac shelby from: Title:Post-anesthesia - General Author:Scout Dumont DO Date:07/06/22 Plan Transfer/ Discharge: Condition stable. Extracted from: Title:EU - MRI fusion transp erineal prostate biopsy Author:Milvia Palomo MD Date:07/06/22 Impression and Plan Diagnosis Elevated PSA (TCE83-WO R97.20, Discharge, Medical). Diagnosis Elevated PSA (QPG79-EC R97.20, Discharge, Medical). Counseled: Patient, Family. Extracted from: Title:Pre-anesthesia - Adult Author:Scout Lamas Jr., DO Date:07/06/22 Plan English Society of Anesthesiologists (ASA) physical status classification: Class III. Anesthetic Preoperative Plan Anesthesia: Monitored anesthesia care. Anesthetic plan, risks, benefits, and alternatives discussed with the patient and/or family. Patient verbalized understanding. Adverse reactions, complications, and alternatives discujssed. Consent signed and on chart.. Future Appointments Appointment Date:07/21/2022 09:30:00 AM Scheduled Provider:Milvia Palomo MD Location:[facility] Appointment Type:URO Office Visit Appointment Date:10/12/2022 10:30:00 AM Scheduled Provider:Asim Tanner Jr., MD Location:[facility] Appointment Type:URO Office Visit [facility]11-14-2022 Note [id number]:127[facility] 06-25-2022 NoteChief Complaint consultation for LLQ [...] mL, NEB, BID c (more content not included)...[facility] Comment: Electronically Signed By: BASIL COTTO, Curtis Monzon\Date and Time Signed: 06/25/22 15:55 [id number] Note [id number]:127[facility] 06-02-2022 Hospital Discharge instructions Patient Education [...] Follow these instructions at home: Medicines Take fnsx-jmf-ynuzdqz and prescription medicines only as told by [...] 08/05/2001 Document Revised: 07/21/2018 Document Reviewed: 08/24/2017 [employer] Patient Education 2020 Ship It Bag Check. Follow Up Care 04/21/2022 12:43:56 With:Dewey COTTO, ARIAN Alegria, URO Address: [address] [place] [phone] When: Unknown [facility] 08-31-2022 Hospital Discharge instructions Patient Education [...] have oneof these risk factors: ?Being of -English descent. ?Having a family history of prostate [...] you: Are older than age 55. Are -English. Have a father, brother, or uncle who [...] 05/19/2018 Document Revised: 07/21/2018 Document Reviewed: 05/19/2018 [employer] Patient Education 2020 Ship It Bag Check. Follow Up Care 03/08/2022 11:37:35 With:Milvia Palomo MD, UR, URO Address: When: Unknown [facility] evaluation + Plan note Future Appointments Appointment Date:05/12/2022 10:45:00 AM Scheduled Provider:Milvia Palomo MD Location:[facility] Appointment Type:URO Office Visit Appointment Date:10/12/2022 10:30:00 AM Scheduled Provider:Asim Tanner Jr., MD Location:[facility] Appointment Type:URO Office Visit [facility] evaluation + Plan note Future Appointments Appointment Date:06/29/2022 03:30:00 PM Scheduled [facility] Type:Surgical PAT FT Appointment Date:07/06/2022 01:30:00 PM Scheduled Provider: Location:[facility] Appointment Type:Surgery FT Appointment Date:07/21/2022 09:30:00 AM Scheduled Provider:Milvia Palomo MD Location:[facility] Appointment Type:URO Office Visit Appointment Date:10/12/2022 10:30:00 AM Scheduled Provider:Asim Tanner Jr., MD Location:[facility] Appointment Type:URO Office Visit [facility] evaluation + Plan note Future Appointments Appointment Date:06/29/2022 03:00:00 PM Scheduled Provider: Location:[facility] Appointment Type:Surgery PAT COVID Testing Appointment Date:06/29/2022 03:30:00 PM Scheduled Provider: Location:[facility] Appointment Type:Surgical PAT FT Appointment Date:07/06/2022 01:30:00 PM Scheduled Provider: Location:[facility] Appointment Type:Surgery FT Appointment Date:07/21/2022 09:30:00 AM Scheduled Provider:Milvia Palomo MD Location:[facility] Appointment Type:URO Office Visit Appointment Date:10/12/2022 10:30:00 AM Scheduled Provider:Asim Tanner Jr., MD Location:[facility] Appointment Type:URO Office Visit General Surgery [facility] Evaluation + Plan note Future Appointments Appointment Date:07/06/2022 01:30:00 PM Scheduled Provider: Location:[facility] Appointment Type:Surgery FT Appointment Date:07/21/2022 09:30:00 AM Scheduled Provider:Milvia Palomo MD Location:[facility] Appointment Type:URO Office Visit Appointment Date:10/12/2022 10:30:00 AM Scheduled Provider:Asim Tanner Jr., MD Location:[facility] Appointment [facility] [place] [facility] Future Appointments Appointment Date:09/15/2022 10:30:00 AM Scheduled Provider:Milvia Palomo MD Location:[facility] Appointment Type:URO Office Visit [facility] evaluation + Plan note Future Appointments Appointment Date:10/06/2022 07:45:00 AM Scheduled Provider:Milvia Palomo MD Location:[facility] Future Appointments Appointment Date:11/03/2022 10:10:00 AM Scheduled Provider:Milvia Palomo MD Location:[facility] Appointment Type:URO Office Visit Diagnostic Tests Pending * PSA Free & Total 10/06/22 [facility] evaluation + Plan note Future Appointments Appointment Date:02/02/2023 10:15:00 AM Scheduled Provider:Dewey COTTO, Milvia Lucia Location:[facility] Appointment Type:URO Office Visit [facility] evaluation noteNo assessment information available [facility] Work Phone: Evaluation note* Diagnosis Type 2 diabetes mellitus with hyperglycemia, with long-term current use of insulin (CMS/HCC) documented in this encounter [facility] HealthcareEvaluation note* Diagnosis Type 2 diabetes mellitus with hyperglycemia, with long-term current use of insulin (CMS/HCC)- Primary Essential hypertension, benign (CMS/HCC) Essential hypertension, benign Type 2 diabetes mellitus with hyperglycemia, with long-term current use of insulin (CMS/HCC)- Primary Essential hypertension, benign (CMS/HCC) Essential hypertension, benign retirement (current) use of insulin (Z79.4) Prostatic cancer (CMS/HCC) Malignant neoplasm of prostate Type 2 diabetes mellitus with hyperglycemia, with long-term current use of insulin (CMS/HCC)- Primary Essential hypertension, benign (CMS/HCC) Essential hypertension, benign Gastroesophageal reflux disease without esophagitis Esophageal reflux Prostatic cancer (CMS/HCC) Malignant neoplasm of prostate Coronary artery disease involving bad river band coronary artery of bad river [place] heart without angina pectoris (CMS/HCC)- Primary Type 2 diabetes mellitus with hyperglycemia, with long-term current use of insulin (CMS/HCC) Essential hypertension, benign (CMS/HCC) Essential hypertension, benign Heart failure with improved ejection fraction (HFimpEF) (CMS/HCC)- Primary Type 2 diabetes mellitus with hyperglycemia, with long-term current use of insulin (CMS/HCC) Coronary artery disease involving bad river band coronary artery of bad river [place] heart without angina pectoris (CMS/HCC) Essential hypertension, benign (CMS/HCC) Essential hypertension, benign Bilateral impacted cerumen Impacted cerumen Single subsegmental pulmonary embolism without acute cor pulmonale (CMS/HCC)- Primary Pneumonia of right lower lobe due to infectious organism NSTEMI (non-ST elevated myocardial infarction) (CMS/HCC) Acute myocardial infarction, subendocardial infarction, episode of care unspecified Coronary artery disease involving bad river band coronary artery of bad [place] heart without angina pectoris ([facility]) Type 2 diabetes mellitus with hyperglycemia, with long-term current use of insulin ([facility]) Type 2 diabetes mellitus with hyperglycemia, with long-term current use of insulin ([facility])- Primary Essential hypertension, benign ([facility]) Essential hypertension, benign Heart failure with improved ejection fraction (HFimpEF) ([facility]) Coronary artery disease involving bad river band coronary artery of bad river band heart without angina pectoris ([facility]) documented in this encounter [facility] HealthcareEvaluation note* Diagnosis Heart failure with improved ejection fraction (HFimpEF) ([facility])- Primary Type 2 diabetes mellitus with hyperglycemia, with long-term current use of insulin ([facility]) Coronary artery disease involving bad river band coronary artery of bad river [place] heart without angina pectoris ([facility]) Essential hypertension, benign ([facility]) Essential hypertension, benign Bilateral impacted cerumen Impacted cerumen documented in this encounter [facility] HealthcareEvaluation note* Diagnosis Single subsegmental pulmonary embolism without acute cor pulmonale ([facility])- Primary Pneumonia of right lower lobe due to infectious organism NSTEMI (non-ST elevated myocardial infarction) ([facility]) Acute myocardial infarction, subendocardial infarction, episode of care unspecified Coronary artery disease involving bad river band coronary artery of bad river band heart without angina pectoris ([facility]) Type 2 diabetes mellitus with hyperglycemia, with long-term current use of insulin ([facility]) [facility] N[facility] No data available for this section [facility] Hospital Discharge instructions No data available for this section General Surgery [facility] Progress note No data available for this section [facility] Discharge Instructions * Discharge Instr - [...] Extended Emergency Contact Information Primary Emergency Contact: [employer] Relation: Spouse Dairy Associate needed? No Past Surgical History: No past surgical history on file. Immunization History: There is no immunization history on file for this patient. Active Problems: Patient Active Problem List Diagnosis Code Cerebrovascular accident (CVA) ([facility]) I63.9 Acute left hemiparesis ([facility]) G81.94 History of ischemic left MCA stroke [...] (99.8 kg) Mental Status: {IP PT MENTAL STATUS:09677} IV Access: { JOSIE IV ACCESS:499536264} Nursing Mobility/ADLs: Walking {CHP DME ADLs:378380138} Transfer {CHP DME ADLs:193952595} Bathing {CHP DME ADLs:850066350} Dressing {CHP DME ADLs:948886977} Toileting {CHP DME ADLs:715895222} Feeding {CHP DME ADLs:174293112} Beater Engineer Helper {CHP DME ADLs:490185323} Med Delivery { JOSIE MED Delivery:929213748} Wound Care Documentation and Therapy: Elimination: Continence: Bowel: {YES / NO:} Bladder: {YES / NO:} Urinary Catheter: {Urinary Catheter:151270923} Colostomy/Ileostomy/Ileal Conduit: {YES / NO:} Date of Last BM: Intake/Output Summary (Last 24 hours) at 06/08/2019 1738 Last data filed at 06/08/2019 1600 Gross per 24 hour Intake Output 950 ml Net -950 ml I/O last 3 completed shifts: In: - Out: 950 [Urine:950] Safety Concerns: { JOSIE Safety Concerns:016288199} Impairments/Disabilities: { JOSIE Impairments/Disabilities:558782221} Nutrition Therapy: Current Nutrition Therapy: { JOSIE Diet List:727576574} Routes of Feeding: {[facility] DME Other Feedings:256220817} Liquids: {[facility] liquid thickness:55551} Daily Fluid Restriction: {[facility] DME Yes amt example:436209202} Last Modified Barium Swallow with Video (Video Swallowing Test): {Done Not Done Date:} Treatments at the Time of Hospital Discharge: Respiratory Treatments: Oxygen Therapy: {Therapy; copd oxygen:64089} Ventilator: {[facility] Vent List:969097387} Rehab Therapies: {THERAPEUTIC INTERVENTION:5325633093} Weight Bearing Status/Restrictions: {[facility] Weight Bearin} Other Medical Equipment (for information only, NOT a DME order): {EQUIPMENT:055228589} Other Treatments: Patient's personal belongings (please select all that are sent with patient): {[facility] DME Belongings:893533486} RN SIGNATURE: {Esignature:593321091} CASE MANAGEMENT/SOCIAL WORK SECTION Inpatient Status Date: 06/05/2019 Readmission Risk Assessment Score: Readmission Risk Risk of Unplanned Readmission: 13 Discharging to Facility/ Agency Name: [facility] Address: Fax: Dialysis Facility (if applicable) Name: Address: Dialysis Schedule: Phone: Fax: Thermodynamic Physicist/Biodiesel Product Development Manager signature: at2:35 PM PHYSICIAN SECTION Prognosis: Good [...] PM EDT CLINICAL PHARMACY NOTE: MEDS TO [facility] Select Patient?: No Total # of [...] 06/08/2019 2:39 PM EDT Physical Therapy Facility/Department: [address] Daily Treatment Note NAME: Eunice Marte [...] Type 2 Diabetes _x__ Be safe with Seth teaching sheet / [facility] Disposal of Household Generated [place] _x__ Type 2 Diabetes and Adding Insulin fold out with survival skills Contact number provided. Patient stated willing to follow up for outpatient DMED / work with BARTOLO chaudhary meal planing. Refer to Patient Education activity for more details. LUCRECIA CADE RN CDE * Keysha Urena, COMMERCIAL CREDIT SPECIALIST - 06/08/2019 11:58 AM EDT Speech Language Pathology Speech Language Pathology [facility] Cognitive Treatment Note Date: 06/08/2019 Patient [...] (100%) withmod verbal cues. State the Category ([place]): Pt stated 1/10 (10%) independently, increased to [...] Treatment completed by: Completed by: Erin Andrews, Supervisor Beam Department Clinician Cosigned By: Keysha Urena M.S.CCC/COMMERCIAL CREDIT SPECIALIST * Kosta Macedo PTA - 06/08/2019 10:31 AM EDT DATE: 06/08/2019 NAME: Eunice Marte : 1955 Patient not seen this date for Physical Therapy due to: [] Blood transfusion in progress [] Hemodialysis [] Patient Declined [] Spine Precautions [] Strict Bedrest [x] Surgery/ Procedure VL DUP LOWER EXTREMITY VENOUS BILATERAL (Order #[id number]) on 06/08/19 [] Testing [] Other [] [...] years ago) who came to ED at [facility] after having a presentation of acute onset of left- sided weakness that began around 5 PM on June 05, 2019. Patient refers that he was around his house around that area he was feeling weak but then noticed that he was slurring the speech, have a left-sided facial droop, left- sided hemiparesis. At the [facility] NIH was calculated at 8 and decision was to give TPA. Patient was life flighted to [facility] and was given hydralazine to control his [...] Labs and Images reviewed with: [x] Omer Zambarno MD [] Oscar Harp MD [] Paco Lynch MD [] Gerg Lopez MD --[] there are no new [...] no complications encountered. Cardiovascular Diseases Fellow [facility] CONSTITUTIONAL: negative for fatigue and malaise EYES: [...] Neurology Resident PGY-3 Neuro Critical Care Pager [phone] 06/08/2019 6:04 AM Associated attestation - Omer [...] signs taken. Pt sleepy, but easy to arouse.Manager Cancer called to let her know procedure was done. 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/ Procedure--cardiac cath tech this afternoon [] Testing [] Other [] PT being discontinued at this time. Patient independent. No further needs. [] PT being discontinued at this time as the patient has been transferred to palliative care. No further needs. SHERRILL IVAN, TELEPHONE SEX WORKER * Tracey Rahman RN - 06/07/2019 1:53 PM EDT Patient arrived from in-house bed, consent signed, all questions answered. Pt ready for procedure. Call light to reach with side rails up 2 of 2. Lt mid and upper chest clipped. No one at bedside with patient. Prep completed to upper & mid chest area with 2% Chlorhexidine Gluconate * Frances Schulz, COMMERCIAL CREDIT SPECIALIST - 06/07/2019 11:43 AM EDT Speech Language Pathology Speech Language Pathology [facility] Speech / Cognitive Treatment Note Date: 06/07/2019 Patient s Name: Eunice Marte Diagnosis: Patient Active Problem List Diagnosis Code Cerebrovascular accident (CVA) ([facility]) I63.9 Acute left hemiparesis ([facility]) G81.94 History of ischemic left MCA stroke Z86.73 History of diabetes mellitus Z86.39 History of hypertension Z86.79 Pain: denies Cognitive Treatment Treatment time: 4141-3187 Subjective: [] Alert [] Cooperative [] Confused [...] x2 verbal repetitions. Organization: State the Category, [place]: Pt provided three items and instructed to state the category. Pt completed activity with 60% (3/5) accuracy independently, increased to 100% (5/5) with mod-max verbal cues and 1-2x verbal repetitions. Add to the Category, [place]: Pt instructed to name three additional items [...] days. Treatment completed by: Frances Schulz M.S. CCC-COMMERCIAL CREDIT SPECIALIST * Spike Worthy, DO - 06/07/2019 8:02 AM EDT Daily Progress Note Neuro Critical Care Patient Name: Eunice Marte Patient : 1955 Room/Bed: [address] [place] [address] CHIEF COMPLAINT: Complaining of left facial droop, left-sided hemiparesis, slurred speech INTERVAL HISTORY: Admission (06/05/2019) Case of a 63 y.o. male patient with PMH of HTN, Diabetes, Stroke (4 years ago) who came to ED at [facility] after having a presentation of acute onset of left- sided weakness that began around 5 PM on June 05, 2019. Patient refers that he was around his house around that area he was feeling weak but then noticed that he was slurring the speech, have a left-sided facial droop, left- sided hemiparesis. At the [facility] NIH was calculated at 8 and decision was to give TPA. Patient was life flighted to [facility] and was given hydralazine to control his [...] Neurology Resident PGY-2 Neuro Critical Care Pager [phone] 06/07/2019 8:02 AM Associated attestation - Omer Zambrano MD - 06/07/2019 4:13 PM EDT NCC 63-year-old patient admitted to neuro ICU status post IV TPA administration for acute left hemiparesis Hx of old left cerebral infarction DM, HTN, HLD MRI brain with diffusion restriction, acute stroke in R jeffrey ventricular and BG area CTA showed no acute LVO, multifocal SUPERVISOR SCREEN PRINTING stenotic area seen Neuro deficits of left [...] Ambulation Assistance: Independent Transfer Assistance: Independent Active Store Warehouse Associate: Yes Mode of Transportation: Car Occupation: Retired [...] Management Training, Self-Care / ADL, Neuromuscular Re-education -[facility] Inpatient Daily Activity Raw Score: 20 (06/06/19 1233) [facility] Inpatient ADL T-Scale Score : 42.03 (06/06/19 1233) ADL Inpatient CMS 0-100% Score: 38.32 (06/06/19 1233) ADL Inpatient [facility] G-Code Modifier : CJ (06/06/19 1233) Goals [...] 06/06/2019 11:52 AM EDT Physical Therapy Facility/Department: [address] Initial Assessment NAME: Eunice Matre : 1955 Chief Complaint Patient presents with Cerebrovascular Accident The patient is a 63 y.o. male presented with acute onset of L sided weakness... He has had TIAs in the past, and states that this felt somewhat similar. 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 He was brought to [place] ED where NIH was calculated to be [...] address noted deficits. Education provided. Recommendations: Requires COMMERCIAL CREDIT SPECIALIST Intervention: Yes Duration/Frequency of Treatment: 3-5 x [...] 0911 Minutes 13 Completed by: Erin Andrews, Supervisor Beam Department Clinician Cosigned By: Keysha Urena M.S.CCC/COMMERCIAL CREDIT SPECIALIST 06/06/2019 10:16 AM * Suellen Allen RN [...] Name: Eunice Marte Patient : 1955 Room/Bed: [address] [place] [address] CHIEF COMPLAINT: Complaining of left facial droop, left-sided hemiparesis, slurred speech INTERVAL HISTORY: Admission (06/05/2019) Case of a 63 y.o. male patient with PMH of HTN, Diabetes, Stroke (4 years ago) who came to ED at [facility] after having a presentation of acute onset of left- sided weakness that began around 5 PM on June 05, 2019. Patient refers that he was around his house around that area he was feeling weak but then noticed that he was slurring the speech, have a left-sided facial droop, left- sided hemiparesis. At the [facility] NIH was calculated at 8 and decision was to give TPA. Patient was life flighted to [facility] and was given hydralazine to control his [...] Neurology Resident PGY-3 Neuro Critical Care Pager [phone] 06/06/2019 5:57 AM Associated attestation - Omer Zambrano MD - 06/06/2019 5:24 PM EDT Patient admitted overnight, staffed this am. H & P from overnight addended. M Sudheer Zambrano MD * Gonzales Camarena MD - 06/05/2019 8:42 PM EDT [address] [facility] Flight Physician Pt Name:Eunice Marte Birthdate 1955 Date of evaluation: 06/05/19 PCP: Adilson Salazar MD REASON FOR FLIGHT Patient was transported from [facility] to [facility] due to stroke. Flight was indicated for further care at [facility] HISTORY OF PRESENT ILLNESS Eunice Marte is a 63 y.o. male who acute onset left-sided upper and lower extremity weakness while walking in his yard. Symptoms occurred at approximately 5 PM this afternoon. Patient's is arrived to [facility] emergency department where he was found to [...] CRITICAL CARE: None Destination Patient arrived at [facility] in stable condition no significant changes in [...] FoundDocuments on File Type Date Recorded Patient Industrial Eng Expl anation Advance Directives and Living Will Power of Engineer Gas Pumping Station Latest Code Status on File Code Status [...] Contact Diagnoses Stroke determined by clinical assessment ([facility]) Oscar Harp MD [address] [place] [address] [facility] Reason Comments Follow-up 3 m Fatigue No energy Reason Comments Follow-up Edema Hands and feet Shortness of Breath Winded easily Reason Comments Follow-up [facility] f/u (unrecognized sect ion and content) No Status Records FoundNo Status Records FoundNo Status Records FoundNo Status Records FoundNo Status Records FoundNo Status Records Found INFORMATION SOURCE (unrecogn ized section and content) DATE CREATED AUTHOR 06/19/[address] [facility] DATE CREATED AUTHOR AUTHOR'S ORGANIZ ATION 11/21/2022 [facility] DATE CREATED AUTHOR AUTHOR'S ORGANIZ ATION 03/29/2023 [facility] DATE CREATED AUTHOR AUTHOR'S ORGANIZ ATION 05/12/2024 [facility] DATE CREATED AUTHOR AUTHOR'S ORGANIZ ATION 07/04/2024 [facility] dical Specialists [facility] DATE CREATED AUTHOR AUTHOR'S ORGANIZ ATION 09/06/2024 [facility] Care Team (unrecognized sect ion and content) Team Status: Inactive Member Role Status Dates Adilson Salazar MD Primary Care Provider Active Milvia Palomo MD Attending Provider Active Team Status: Active Member Role Status Dates Adilson Salazar MD Primary Care Provider Active Compound Mixer Relationship Specialty Start Date End Date Adilson Salazar MD PCP - General Family Medicine 05/25/23 Compound Mixer Relationship Specialty Start Date End Date Adilson Salazar MD PCP - General Family Medicine 05/25/23 Compound Mixer Relationship Specialty Start Date End Date Adilson Salazar MD [address] [place] [phone] PCP - General Family Medicine 03/28/24 Compound Mixer Relationship Specialty Start Date End Date Adilson Salazar MD [address] [place] [phone] PCP - General Family Medicine 03/28/24 Compound Mixer Relationship Specialty Start Date End Date Adilson Salazar MD [address] [place] [phone] PCP - General Family Medicine 03/28/24 Compound Mixer Relationship Specialty Start Date End Date Adilson Salazar MD [address] [place] [phone] PCP - General Family Medicine 03/28/24 Compound Mixer Relationship Specialty Start Date End Date Adilson Salazar MD [address] [place] [phone] PCP - General Family Medicine 03/28/24 Compound Mixer Relationship Specialty Start Date End Date Adilson Salazar MD [address] [place] [address] PCP - General Family Medicine 03/28/24 Compound Mixer Relationship Specialty Start Date End Date Adilson Salazar MD [address] [place] [address] PCP - General Family Medicine 03/28/24 [...] BE BASED ON THE PRIMARY CLINICAL RECORDS. [employer] provides no warranty or guarantee of the accuracy or completeness of information in this document.
[2024-10-01 01:32] LABS: Glucometer 262 mg/dL (74-106)
[2024-10-01 06:00] LABS: Basophils Percent Auto 0.2 % (0.2-2.0); Eosinophils Percent Auto 0.4 % (0.9-7.0); Hematocrit 41.2 % (42.0-54.0); Hemoglobin 13.8 g/dL (14.0-18.0); Immature Granulocytes Abs Auto 0.03 10^3/uL (0.00-0.03); Immature Granulocytes Pct Auto 0.4 % (0.0-0.5); Lymphocytes Absolute Auto 0.4 10^3/uL (1.2-3.8); Lymphocytes Percent Auto 4.6 % (20.5-60.0); Mean Corpuscular HGB Conc 33.5 g/dL (29.9-35.2); Mean Corpuscular Volume 83.7 fL (80.0-94.0); Mean Platelet Volume 10.8 fL (9.5-13.5); Monocytes Absolute Auto 0.5 10^3/uL (0.3-0.8); Monocytes Percent Auto 5.6 % (1.7-12.0); Neutrophils Absolute Auto 7.4 10^3/uL (1.4-6.5); Neutrophils Percent Auto 88.8 % (43.0-75.0); Platelet Count 153 10^3/uL (150-450); Red Blood Count 4.92 10^6/uL (4.70-6.10); Red Cell Distribution Width 13.7 % (11.0-15.0); White Blood Count 8.3 10^3/uL (4.0-11.0)
[2024-10-01 06:23] LABS: Alanine Aminotransferase 92 U/L (16-63); Albumin Level 3.5 g/dL (3.4-5.0); Alkaline Phosphatase 122 U/L (46-116); Anion Gap 15.8; Aspartate Amino Transferase 55 U/L (15-37); BUN Creatinine Ratio 6.5; Bilirubin Total 0.6 mg/dL (0.2-1.0); Calcium 8.8 mg/dL (8.5-10.1); Chloride 103 mmol/L (98-107); Estimated GFR (African America >60 (>=60 mL/min/1.73m^2); Estimated GFR (Non-African Ame >60 (>=60 mL/min/1.73m^2); Globulin 3.6 g/dL; Glucose 264 mg/dL (74-106); Potassium 3.8 mmol/L (3.5-5.1); Sodium 141 mmol/L (136-145); Total Protein 7.1 g/dL (6.4-8.2)
[2024-10-01 06:46] LABS: Erythrocyte Sedimentation Rate 40 mm/hr (<=20)
[2024-10-01 06:50] LABS: Alanine Aminotransferase 89 U/L (16-63); Albumin Level 3.5 g/dL (3.4-5.0); Alkaline Phosphatase 120 U/L (46-116); Aspartate Amino Transferase 54 U/L (15-37); Bilirubin Direct 0.1 mg/dL (0.0-0.2); Bilirubin Total 0.5 mg/dL (0.2-1.0); Globulin 3.6 g/dL; Total Protein 7.1 g/dL (6.4-8.2)
--- NOTE | 2024-10-01 06:51 | P.HP_ITS ---
HPI H&P: HPI History of Present Illness Chief complaint: FEVER Narrative: Patient with a history of CVA, but presented to the emergency room with fever, he states that been going on for a week, he did have altered mental status in the emergency room as well. Workup in the ER really unremarkable other than the fever prior to count of 202.9 last night, When I saw patient up on the medical surgical floor, her awakens easily, resting comfortably in bed, no complaints of chest pain, slight cough, states has been feeling that well for about a week, denies abdominal pain until we did the exam Opioid HPI Opioid Management Most Recent Pain and Opioid Data: Last Pain Scale 6 05/09/24 15:34 05/09/24 Last Pain Assessment 10/01/24 07:00 Last ORT Total Score 0 10/01/24 01:00 10/01/24 Last ORT Risk Category Low Risk 10/01/24 01:00 10/01/24 Review of Systems ROS Status of ROS 10 or more systems reviewed and unremark able except as noted in history and below PFSH PFS Medical History (Updated 10/01/24 @ 08:06 by Brandon Palencia MD) History of non-ST elevation myocardial infarction (NSTEMI) ?I25.2 - Old myocardial infarction (ICD-10) Multi-infarct dementia ?F01.50 - Vascular dementia, unspecified severity, without behavioral disturbance, psychotic disturbance, mood disturbance, and anxiety (ICD-10) Cerebrovascular disease ?I67.9 - Cerebrovascular disease, unspecified (ICD-10) Type 2 diabetes mellitus with hyperglycemia ?E11.65 - Type 2 diabetes mellitus with hyperglycemia (ICD-10) Implantable loop recorder present ?Z95.818 - Presence of other cardiac implants and grafts (ICD-10) Sleep apnea treated with continuous positive airway pressure (CPAP) ?G47.30 - Sleep apnea, unspecified (ICD-10) TIA (transient ischemic attack) ?G45.9 - Transient cerebral ischemic attack, unspecified (ICD-10) High cholesterol ?E78.00 - Pure hypercholesterolemia, unspecified (ICD-10) Hypertension ?I10 - Essential (primary) hypertension (ICD-10) Prostate CA ?C61 - Malignant neoplasm of prostate (ICD-10) Surgical History History of shoulder surgery ?Z98.890 - Other specified postprocedural states (ICD-10) H/O left knee surgery ?Z98.890 - Other specified postprocedural states (ICD-10) History of back surgery ?Z98.890 - Other specified postprocedural states (ICD-10) Family History Mother Family history of diabetes mellitus Family history of myocardial infarction Sister Family history of hypertension Social History (Updated 10/01/24 @ 01:20 by Mallika Chacon) Within the past year, how often did you have a drink containing alcohol: never Score interpretation: A score less than 4 is consistent with normal alcohol consumption. Smoking status: Former smoker Non-prescribed substance use: denies use Previous occupational history: retired Highest level of school completed/degree received: high school graduate Are you now , , , , never or living with a partner: In a typical week, how many times do you talk on the telephone with family, friends, or neighbors: 3 or more times per week How often do you get together with friends or relatives: 3 or more times per week How often do you attend zoroastrian or orthodoxy services: never Little interest or pleasure in doing things: not at all Feeling down, depressed, or hopeless: not at all Feel stressed/tense/nervous/anxious/difficulty sleeping: not at all Do you think of yourself as: straight/heterosexual Gender Identity: male Meds Home Medications and Allergies Home Medications ?Medication ?Instructions ?Recorded ?Confirmed ?Type amlodipine 10 mg tablet 10 mg PO DAILY 07/16/23 10/01/24 History ezetimibe 10 mg tablet 10 mg PO QAM 07/16/23 10/01/24 History glipizide 10 mg tablet 10 mg PO BIDWM 07/16/23 10/01/24 History lisinopril 20 1 tab PO BID 07/16/23 10/01/24 History mg-hydrochlorothiazide 12.5 mg tablet metformin 500 mg tablet,extended 500 mg PO BID 07/16/23 10/01/24 History release 24 hr montelukast 10 mg tablet 10 mg PO .QHS 07/16/23 10/01/24 History pioglitazone 30 mg tablet 30 mg PO DAILY 07/16/23 10/01/24 History tamsulosin 0.4 mg capsule 0.4 mg PO DAILY 07/16/23 10/01/24 History aspirin 81 mg capsule 81 mg PO DAILY 03/12/24 10/01/24 History insulin glargine-yfgn 100 unit/mL 40 unit subcut .QHS 03/12/24 10/01/24 History (3 mL) subcutaneous pen (Semglee (insulin glargine-yfgn) Pen) evolocumab 140 mg/mL subcutaneous 140 mg subcut Q14D 05/09/24 10/01/24 History pen injector (Repatha SureClick) rosuvastatin 40 mg tablet 40 mg PO .QHS 05/09/24 10/01/24 History apixaban 5 mg tablet (Eliquis) 5 mg PO BID 30 days #72 tabs 05/11/24 10/01/24 Rx carvedilol 6.25 mg tablet 6.25 mg PO BID 30 days #60 tabs 05/11/24 10/01/24 Rx isosorbide mononitrate 30 mg 30 mg PO .q am 10/01/24 10/01/24 History tablet,extended release 24 hr relugolix 120 mg tablet (Orgovyx) 120 mg PO Q24H 10/01/24 10/01/24 History Allergies Allergy/AdvReac Type Severity Reaction Status Date / Time Penicillins Allergy Severe Rash Verified 09/30/24 22:33 Exam Constitutional Vital Signs, click to edit/add: Last Vital Signs Temp 100.3 F 10/01/24 04:00 Pulse 94 H 10/01/24 04:00 Resp 20 10/01/24 04:00 BP 163/83 H 10/01/24 04:00 Pulse Ox 92 L 10/01/24 06:28 O2 Del Method Room Air 10/01/24 06:28 Documenting provider has reviewed patient's vital signs: yes Common normals: no apparent distress Chest Common normals: inspection of chest normal Respiratory Common normals: normal respiratory effort and no retractions Cardio Common normals: regular rate and regular rhythm GI Common normals: soft to palpation; negative for Normal to inspection, nondistended, normoactive bowel sounds present (Obese) and tender Palpation: tender (Diffusely, question of rebound tenderness) Results Labs Labs: Short CBC 09/30/24 10/01/24 Range/Units 23:02 05:19 WBC 8.6 8.3 (4.0-11.0) 10^3/uL Hgb 14.4 13.8 L (14.0-18.0) g/dL Hct 43.8 41.2 L (42.0-54.0) % Plt Count 154 153 (150-450) 10^3/uL BMP 09/30/24 10/01/24 23:02 05:19 Sodium 138 141 Potassium 3.9 3.8 Chloride 101 103 Carbon Dioxide 25.4 26.0 BUN 9.0 7.0 Creatinine 1.15 1.08 Glucose 263 H 264 H Calcium 9.0 8.8 Liver Function 10/01/24 Range/Units 05:19 Total Bilirubin 0.6 (0.2-1.0) mg/dL AST 55 H (15-37) U/L ALT 92 H (16-63) U/L Alkaline Phosphatase 122 H (46-116) U/L Albumin 3.5 (3.4-5.0) g/dL Urine 09/30/24 Range/Units 22:45 Urine Color Yellow (YELLOW) Urine Clarity Clear (CLEAR) Urine pH 6.0 (5.0-9.0) Ur Specific [place] 1.025 (1.005-1.025) Urine Protein 30 A (NEG/TRACE) mg/dL Urine Glucose (UA) 500 A (NEGATIVE) mg/dL Assessment and Plan Assessment and Plan (1) Fever: (2) Multi-infarct dementia: (3) Cerebrovascular disease: (4) Abdominal pain: Plan Admission findings: Fever, 102.9, sinus tachycardia, mild respiratory distress and uncontrolled hypertension, normal white blood cell count but significant left shift with neutrophils 90%, severe hyperglycemia elevated liver function test, hypomagnesemia and elevated troponin, with fever, tachycardia, respiratory distress would be criteria for sepsis Fever and altered mental status with immune deficiency due to treating for prostate cancer-will check CT scan of his head-he does Nu[place] headache no nuchal rigidity that would be consistent with meningitis Abdominal pain with elevated liver enzymes, tenderness in the right upper quadrant, question of rebound tenderness, check CT scan abdomen and pelvis with contrast, start IV antibiotics Rocephin and Flagyl Elevated troponin-he has had these in the past, will repeat in the series, denies chest pain, EKG does have some nonspecific T wave inversion in the high anterior leads, consider echocardiogram Poorly controlled diabetes mellitus-insulin sliding scale Hypomagnesemia-supplement Hypertension-elevated on admission, continue with home medications and as needed hydralazine Long-term anticoagulation for stroke-on Eliquis and aspirin, maintain Hypercholesterolemia continue with home medications Asthma-continue with home medications-not acute Prostate cancer-maintain current medications Admission status: Patient with fever,, tachycardia, respiratory distress meeting criteria for sepsis uncertain source of infection but now with abdominal pain, checking CT scan with and due to altered mental status needs CT of brain also, patient condition from a laboratory standpoint is worse this morning with eleva shelby liver function test, medically necessary treatment will span 2 midnights. Inpatient status Urinary Catheter Management Urinary Catheter Management Straight: Cath placed during this visit: yes Urethral indwelling: Yes Reason for continuing: measure accurate output Insertion date: 09/30/24 Insertion time: 23:45 Pure Wick: Cath placed during this visit: no
[2024-10-01 07:01] LABS: C Reactive Protein 2.95 mg/dL (<=0.50); Magnesium 1.6 mg/dL (1.8-2.4)
[2024-10-01 07:21] LABS: Ammonia 18 umol/L (11-32)
--- NOTE | 2024-10-01 07:49 | CM.NOTE ---
Rounds made with Dr. Palencia, pt with abdominal pain. Pt will have CT of abdomen today for further work-up. No discharge today, pt will be changed to inpatient [facility].
[2024-10-01 08:10] LABS: Amylase 117 U/L (25-115)
[2024-10-01] MEDS: LISINOPRIL/HYDROCHLOROTHIAZIDE 20-12.5 MG TABLET 1 TAB PO ×2 (08:11→21:59)
[2024-10-01] MEDS: MAGNESIUM OXIDE 400 MG TABLET PO ×2 (08:11→21:59)
[2024-10-01] MEDS: CHOLECALCIFEROL (VITAMIN D3) 25 MCG/1,000 UNITS TABLET 50 MCG PO (08:11)
[2024-10-01] MEDS: PIOGLITAZONE 15 MG TABLET 30 MG PO (08:11)
[2024-10-01] MEDS: EZETIMIBE 10 MG TABLET PO (08:11)
[2024-10-01] MEDS: CALCIUM CARBONATE 600 MG/VITAMIN D3 400 IU TABLET 1 TAB PO (08:12)
[2024-10-01] MEDS: AMLODIPINE BESYLATE 5 MG TABLET 10 MG PO (08:12)
[2024-10-01] MEDS: GLIPIZIDE 10 MG TABLET PO ×2 (08:12→17:18)
[2024-10-01] MEDS: METFORMIN HCL 500 MG TAB.ER.24H PO (08:12)
[2024-10-01] MEDS: INSULIN ASPART 300 UNIT/3 ML PEN SUBQ ×3 (08:12→22:01)
[2024-10-01] MEDS: TAMSULOSIN HCL 0.4 MG CAPSULE PO (08:12)
[2024-10-01] MEDS: APIXABAN 5 MG TABLET PO ×2 (08:12→21:59)
[2024-10-01] MEDS: CARVEDILOL 6.25 MG TABLET PO ×2 (08:12→22:01)
[2024-10-01] MEDS: ASPIRIN 81 MG TABLET.DR PO (08:12)
[2024-10-01 08:34] LABS: INR 1.18; Partial Thromboplastin Time 30.2 sec (22.3-36.2); Prothrombin Time 12.3 sec (9.0-11.6)
--- NOTE | 2024-10-01 08:56 | CT_ITS ---
[address] [address] Patient Name: EUNICE FREEMAN MRN: [id number] date: 1955 Sex: M Assigned Patient Location: [place] Current Patient Location: Accession/Order Number: [id number] Exam Date: 10/01/2024 08:42 Report Date: 10/01/2024 09:50 At the request of: PAPITO PUENTE Procedure: CT abdomen pelvis w con EXAMINATION: CT abdomen pelvis w con HISTORY: Abd pain, hepatitis COMPARISON: No relevant comparison available. TECHNIQUE: CT images were created with IV contrast. Axial, Coronal, and Sagittal images. Dose reduction techniques were achieved by using automated exposure control and/or adjustment of mA and/or kV according to patient size and/or use of iterative reconstruction technique. FINDINGS: LUNG BASES: Right basilar infiltrate, atelectasis is favored LIVER: Diffuse hypoattenuation consistent with hepatic steatosis. No focal mass BILIARY: No visible dilatation or calcification. PANCREAS: No lesion, fluid collection, ductal dilatation, or atrophy. SPLEEN: No enlargement or focal lesion. ADRENALS: No mass or enlargement. KIDNEYS: Bilateral renal cortical hypodensities, cysts are favored. No obstructive uropathy BOWEL/MESENTERY: Colonic diverticulosis without evidence of acute diverticulitis. Nonobstructive bowel gas pattern. Normal appendix. moderate stool in the rectum which measures 6.6 cm in diameter AORTA/VASCULAR: Moderate calcific atherosclerosis RETROPERITONEUM: No mass or adenopathy. LYMPH NODES: No adenopathy. URINARY BLADDER: Wall thickening of the urinary bladder measuring up to 9 mm with inflammatory changes PELVIC ORGANS: No visible mass. Pelvic organs appropriate for patient age. ABDOMINAL WALL: No mass or hernia. BONES: Severe bilateral hip osteoarthritis. Lumbosacral fusion OTHER: Implanted reservoir in the left anterior pelvis with a catheter extending caudally off the field of view CT/CT abdomen pelvis w con IMPRESSION: Wall thickening of the urinary bladder with inflammatory changes, consider cystitis. Moderate stool in the rectum Electronically authenticated by: ZAYNAB PEREZ Date: 10/01/2024 09:50
--- NOTE | 2024-10-01 08:56 | CT_ITS ---
The [address] [address] Patient Name: EUNICE FREEMAN MRN: [id number] date: 1955 Sex: M Assigned Patient Location: MS Current Patient Location: MS Accession/Order Number: [id number] Exam Date: 10/01/2024 08:25 Report Date: 10/01/2024 09:43 At the request of: PAPITO PUENTE Procedure: CT head/brain wo/w con CT head/brain wo/w con, 10/01/2024 8:25 AM EST INDICATION: AMS, Meningitis? COMPARISON: Prior CT of the head dated 07/16/2023 TECHNIQUE: Axial CT images of the brain from skull base to vertex, including portions of the face and sinuses, were obtained without contrast . Multiplanar reformatted images were generated and reviewed as needed. Dose reduction techniques were achieved by using automated exposure control and/or adjustment of mA and/or kV according to patient size and/or use of iterative reconstruction technique. FINDINGS: The cerebral sulci as well as ventricular system are appropriate enlarged consistent with moderate ex vacuo cerebral volume loss. Periventricular and centrum semiovale hypodensities are most likely consistent with microvascular ischemic changes. Stable encephalomalacia within the left temporal parietal lobes likely due to prior CVA. Lacunar infarcts within the caudate heads and bilateral lenticular nuclei are again noted. There is no intracranial mass, mass effect, midline shift, intra or extra-axial fluid collection or hemorrhage. Scattered mucosal thickening within the paranasal sinuses. There is fluid within the bilateral mastoid air cells which is new since prior study. Status post right lens replacement. There is no suspicious osteolytic or osteoblastic lesion. CT/CT head/brain wo/w con IMPRESSION: No acute intracranial process is noted. Bilateral fluid within the mastoid air cells may suggest mastoiditis in appropriate clinical setting. However, the [place]ohn spaces could not be visualized due to being out of field of view. Direct visualization of the nasopharynx is recommended. Electronically authenticated by: JUAN CARLOS WILKINSON Date: 10/01/2024 09:43
[2024-10-01] MEDS: CEFTRIAXONE 2,000 MG in 0.9 % SODIUM CHLORIDE 100 ML 200 MG IV (09:33)
[2024-10-01] MEDS: ACETAMINOPHEN 500 MG TABLET 1000 MG PO ×2 (09:33→15:30)
[2024-10-01] MEDS: 0.9 % SODIUM CHLORIDE 250 ML 10 ML IV (09:33)
[2024-10-01 09:52] LABS: Troponin I High Sensitivity 300.2 pg/mL (4.0-76.1)
--- NOTE | 2024-10-01 10:18 | CA_ITS ---
Patient Name: EUNICE FREEMAN MR#: [id number] : 1955 Exam Date: 10/01/2024 Ordering Doctor: DR Brandon Palencia . ECHOCARDIOGRAM REPORT PROCEDURE: CA ECHO LIMITED INDICATIONS: elevated trop COMPARISON: None. DESCRIPTION: Limited ECHOCARDIOGRAM Real-time transthoracic echocardiography with 2D and M-mode performed. QUALITY: Technical quality was adequate. LEFT VENTRICLE: Normal chamber size. Severe concentric left ventricular hypertrophy. Global left ventricular systolic function is normal. LV EF: Visual estimation of left ventricular ejection fraction is 60-65% which appears unchanged from previous study of 05/10/24. DIASTOLIC: ATRIAL SEPTUM: LEFT ATRIUM: Normal chamber size. RIGHT ATRIUM: Mild dilatation. RIGHT VENTRICLE: Normal chamber size. Normal right ventricular systolic function. TRICUSPID VALVE: Normal mobility and thickness. MITRAL VALVE: Normal mobility and thickness. There is no mitral annular calcification. AORTIC VALVE: Normal trileaflet appearance. Normal leaflet mobility. AORTIC ROOT: Normal diameter and appearance. PULMONIC VALVE: Not well visualized. PERICARDIUM: No evidence of pericardial effusion. IVC: Collapses with inspirations. Normal size. PLEURA: CONCLUSION: 1. Severe concentric ventricular hypertrophy with normal systolic function. Estimated LVEF is 60 to 65%. 2. Normal right ventricle size and systolic function. 3. No pericardial fusion. 4. Limited study performed with no Doppler interrogation as requested. Adult Echocardiography Procedure Report Left Ventricle LVEDD (3.7 - 5.6 cm): 3.44 cm LVESD (2.2 - 4.0 cm): 2.68 cm LVIVS thickness (0.6 - 1.2 cm): 2.02 cm LVPW thickness (0.5 - 1.0 cm): 1.79 cm LVOT Diameter 2.06 cm Left Ventricular Ejection Fraction: 60-65 % Left Atrium LA Volume Index (2D A2C): 16.22 ml/m2 Left Atrium Systolic Dimension: 3.20 cm Mitral Valve Right Ventricle RV Internal Diastolic Dimension: 2.77 cm Aorta AO Root Diam: 3.09 cm Aortic Valve Tricuspid Valve Pulmonic Valve Right Atrium Right Atrium Systolic Pressure: 37.73 ml, 37.73 ml Dictated by: Saleem Schmidt M.D. on 10/01/2024 at 13:06 Approved by: Saleem Schmidt M.D. on 10/01/2024 at 13:10
--- NOTE | 2024-10-01 10:18 | ECG_ITS ---
The [facility] Test Date: 2024-10-01 Pat Name: EUNICE FREEMAN Department: Room: Gender: Male [employer]: : 1955 Requested By: PAPITO PUENTE Order Number: [id number] Reading MD: PAPITO PUENTE Measurements Intervals [place] Rate: 97 P: 71 MD: 204 QRS: 36 QRSD: 86 T: 131 QT: 354 QTc: 450 Interpretive Statements SINUS RHYTHM NONSPECIFIC T-WAVE ABNORMALITY Compared to ECG 10/01/2024 11:08:00 No significant changes Electronically Signed On 10-05-2024 5:22:02 EST by PAPITO PUENTE
[2024-10-01] MEDS: METRONIDAZOLE/SODIUM CHLORIDE 500 MG/100 ML PREMIX 100 MG IV ×3 (10:26→22:00)
[2024-10-01 11:34] LABS: Glucometer 191 mg/dL (74-106)
[2024-10-01] MEDS: ISOSORBIDE MONONITRATE 30 MG TAB.ER.24H PO (11:38)
[2024-10-01] MEDS: RELUGOLIX 120 MG 120 EACH PO (11:39)
[2024-10-01 12:01] LABS: Troponin I High Sensitivity 329.5 pg/mL (4.0-76.1)
--- NOTE | 2024-10-01 15:02 | SWNOTE1 ---
SW met with pt in room to discuss dc needs. Pt was on phone with his when SW came in room. SW explained to pt that it is recommended that pt go to nursing facility for rehab for a short time to get stronger. SW asked pt if he uses a walker at home and he stated no a cane. Pt asked if he has been to facility in past. He stated no. SW asked if he had HH in the past, he stated yes, but he could not remember the company. Pt asked if he would be willing to go to SNF for a short time. Pt shook his head no and stated he wants to do it at home. SW advised pt that at a facility he will get more therapy and HH is 2-3 times a week. He voiced understanding and again stated he wants to do it at home. SW asked permission to call his . He stated that SW can call her. SW called pt's . SW discussed HH and SNF with pt's . She stated he has had [facility] in the past. SW asked how he was doing at home. stated he was getting around with his walker just fine until last night. She stated he could not even sit up without falling. Normally he is up and ambulatory with his cane. would like nurse to call with medical update, she asked what was going on with pt. SW advised that SW will provide nurse with her number for nurse to call. Pt's voiced she wants him to get better and will do whatever. Will see how patient is doing tomorrow and will have another conversation with pt about SNF if it is still recommended.
[2024-10-01 16:09] LABS: Glucometer 132 mg/dL (74-106)
--- NOTE | 2024-10-01 17:37 | P.CACN_ITS ---
History of Present Illness History of Present Illness Consult date: 10/01/24 Requesting physician: Brandon Palencia Chief complaint: FEVER Narrative: Reason for consult: Elevated troponin. This is a 68-year-old man with past medical history significant for asthma, hype rtension, hyperlipidemia, coronary artery disease, DVT, prostate cancer status post radiation therapy, stage III chronic kidney disease, type 2 diabetes mellitus, history of left MCA CVA in 2014 and myocardial infarction in 2021. In February 2024 he developed chest pain and was found to have elevated troponin. He was transferred to [facility] where he underwent cardiac catheterization which showed evidence of diffuse mild coronary disease appropriate for medical therapy. No intervention was performed. He was last evaluated in our office on 06/01/2020 for and medical therapy was continued for his CAD. He is maintained on Eliquis for anticoagulation due to history of DVT/PE. Currently he is admitted with abdominal pain and fever and is managed in the hospital. He was found to have elevated HS troponin that peaked at around 329. He currently is comfortable in bed. He denies any angina symptoms. He has no breathing issues. He has abdominal pain. Review of Systems ROS Status of ROS 10 or more systems reviewed and unremark able except as noted in history and below Cardiovascular Denies: chest pain or edema Respiratory Denies: shortness of breath Gastrointestinal Reports: abdominal pain PFSH PFS Medical History (Updated 10/01/24 @ 17:53 by SAMREEN VEE) History of non-ST elevation myocardial infarction (NSTEMI) ?I25.2 - Old myocardial infarction (ICD-10) Multi-infarct dementia ?F01.50 - Vascular dementia, unspecified severity, without behavioral disturbance, psychotic disturbance, mood disturbance, and anxiety (ICD-10) Cerebrovascular disease ?I67.9 - Cerebrovascular disease, unspecified (ICD-10) Type 2 diabetes mellitus with hyperglycemia ?E11.65 - Type 2 diabetes mellitus with hyperglycemia (ICD-10) Implantable loop recorder present ?Z95.818 - Presence of other cardiac implants and grafts (ICD-10) Sleep apnea treated with continuous positive airway pressure (CPAP) ?G47.30 - Sleep apnea, unspecified (ICD-10) TIA (transient ischemic attack) ?G45.9 - Transient cerebral ischemic attack, unspecified (ICD-10) High cholesterol ?E78.00 - Pure hypercholesterolemia, unspecified (ICD-10) Hypertension ?I10 - Essential (primary) hypertension (ICD-10) Prostate CA ?C61 - Malignant neoplasm of prostate (ICD-10) Surgical History History of shoulder surgery ?Z98.890 - Other specified postprocedural states (ICD-10) H/O left knee surgery ?Z98.890 - Other specified postprocedural states (ICD-10) History of back surgery ?Z98.890 - Other specified postprocedural states (ICD-10) Family History Mother Family history of diabetes mellitus Family history of myocardial infarction Sister Family history of hypertension Social History (Updated 10/01/24 @ 01:20 by Mallika Chacon) Within the past year, how often did you have a drink containing alcohol: never Score interpretation: A score less than 4 is consistent with normal alcohol consumption. Smoking status: Former smoker Non-prescribed substance use: denies use Previous occupational history: retired Highest level of school completed/degree received: high school graduate Are you now , , , , never or living with a partner: In a typical week, how many times do you talk on the telephone with family, friends, or neighbors: 3 or more times per week How often do you get together with friends or relatives: 3 or more times per week How often do you attend faith or mu-ism services: never Little interest or pleasure in doing things: not at all Feeling down, depressed, or hopeless: not at all Feel stressed/tense/nervous/anxious/difficulty sleeping: not at all Do you think of yourself as: straight/heterosexual Gender Identity: male Meds Home Medications and Allergies Home Medications ?Medication ?Instructions ?Recorded ?Confirmed ?Type amlodipine 10 mg tablet 10 mg PO DAILY 07/16/23 10/01/24 History ezetimibe 10 mg tablet 10 mg PO QAM 07/16/23 10/01/24 History glipizide 10 mg tablet 10 mg PO BIDWM 07/16/23 10/01/24 History lisinopril 20 1 tab PO BID 07/16/23 10/01/24 History mg-hydrochlorothiazide 12.5 mg tablet metformin 500 mg tablet,extended 500 mg PO BID 07/16/23 10/01/24 History release 24 hr montelukast 10 mg tablet 10 mg PO .QHS 07/16/23 10/01/24 History pioglitazone 30 mg tablet 30 mg PO DAILY 07/16/23 10/01/24 History tamsulosin 0.4 mg capsule 0.4 mg PO DAILY 07/16/23 10/01/24 History aspirin 81 mg capsule 81 mg PO DAILY 03/12/24 10/01/24 History insulin glargine-yfgn 100 unit/mL 40 unit subcut .QHS 03/12/24 10/01/24 History (3 mL) subcutaneous pen (Semglee (insulin glargine-yfgn) Pen) evolocumab 140 mg/mL subcutaneous 140 mg subcut Q14D 05/09/24 10/01/24 History pen injector (Repatha SureKristianick) rosuvastatin 40 mg tablet 40 mg PO .QHS 05/09/24 10/01/24 History apixaban 5 mg tablet (Eliquis) 5 mg PO BID 30 days #72 tabs 05/11/24 10/01/24 Rx carvedilol 6.25 mg tablet 6.25 mg PO BID 30 days #60 tabs 05/11/24 10/01/24 Rx isosorbide mononitrate 30 mg 30 mg PO .q am 10/01/24 10/01/24 History tablet,extended release 24 hr relugolix 120 mg tablet (Orgovyx) 120 mg PO Q24H 10/01/24 10/01/24 History Allergies Allergy/AdvReac Type Severity Reaction Status Date / Time Penicillins Allergy Severe Rash Verified 09/30/24 22:33 Exam Constitutional Vital Signs, click to edit/add: Last Vital Signs Temp 99.3 F 10/01/24 15:45 Pulse 87 10/01/24 15:45 Resp 18 10/01/24 15:45 BP 111/69 10/01/24 15:45 Pulse Ox 93 L 10/01/24 15:45 O2 Del Method Room Air 10/01/24 15:45 Documenting provider has reviewed patient's vital signs: yes Common normals: no apparent distress Chest Common normals: inspection of chest normal Respiratory Common normals: normal respiratory effort and no retractions Cardio Common normals: regular rate and regular rhythm GI Common normals: soft to palpation Palpation: tender (Diffusely, question of rebound tenderness) Extremity General: no edema Neuro Sensorium/orientation: awake, alert, oriented to person and oriented to place Psych Common normals: mental status grossly normal, cooperative and affect normal Results Labs and Meds Lab results: Cardiac Enzymes 10/01/24 10/01/24 Range/Units 05:19 05:19 AST 55 H 54 H (15-37) U/L Coagulation 10/01/24 Range/Units 08:10 PT 12.3 H (9.0-11.6) sec APTT 30.2 (22.3-36.2) sec CBC 09/30/24 10/01/24 Range/Units 23:02 05:19 WBC 8.6 8.3 (4.0-11.0) 10^3/uL RBC 5.20 4.92 (4.70-6.10) 10^6/uL Hgb 14.4 13.8 L (14.0-18.0) g/dL Hct 43.8 41.2 L (42.0-54.0) % Plt Count 154 153 (150-450) 10^3/uL Neut # (Auto) 7.4 H (1.4-6.5) 10^3/uL Lymph # (Auto) 0.4 L (1.2-3.8) 10^3/uL [place] # (Auto) 0.5 (0.3-0.8) 10^3/uL Eos # (Auto) 0.0 (0.0-0.7) 10^3/uL Baso # (Auto) 0.0 (0.0-0.1) 10^3/uL Comprehensive Metabolic Panel 09/30/24 10/01/24 10/01/24 Range/Units 23:02 05:19 05:19 Sodium 138 141 (136-145) mmol/L Potassium 3.9 3.8 (3.5-5.1) mmol/L Chloride 101 103 (98-107) mmol/L Carbon Dioxide 25.4 26.0 (21.0-32.0) mmol/L BUN 9.0 7.0 (7.0-18.0) mg/dL Creatinine 1.15 1.08 (0.70-1.30) mg/dL Glucose 263 H 264 H (74-106) mg/dL Calcium 9.0 8.8 (8.5-10.1) mg/dL Direct Bilirubin 0.1 (0.0-0.2) mg/dL AST 55 H 54 H (15-37) U/L ALT 92 H (16-63) U/L Alkaline Phosphatase (46-116) U/L Total Protein (6.4-8.2) g/dL Albumin (3.4-5.0) g/dL 10/01/24 10/01/24 10/01/24 Range/Units 05:19 05:19 05:19 Sodium (136-145) mmol/L Potassium (3.5-5.1) mmol/L Chloride (98-107) mmol/L Carbon Dioxide (21.0-32.0) mmol/L BUN (7.0-18.0) mg/dL Creatinine (0.70-1.30) mg/dL Glucose (74-106) mg/dL Calcium (8.5-10.1) mg/dL Direct Bilirubin (0.0-0.2) mg/dL AST (15-37) U/L ALT 89 H (16-63) U/L Alkaline Phosphatase 122 H 120 H (46-116) U/L Total Protein 7.1 7.1 (6.4-8.2) g/dL Albumin 3.5 (3.4-5.0) g/dL 10/01/24 Range/Units 05:19 Sodium (136-145) mmol/L Potassium (3.5-5.1) mmol/L Chloride (98-107) mmol/L Carbon Dioxide (21.0-32.0) mmol/L BUN (7.0-18.0) mg/dL Creatinine (0.70-1.30) mg/dL Glucose (74-106) mg/dL Calcium (8.5-10.1) mg/dL Direct Bilirubin (0.0-0.2) mg/dL AST (15-37) U/L ALT (16-63) U/L Alkaline Phosphatase (46-116) U/L Total Protein (6.4-8.2) g/dL Albumin 3.5 (3.4-5.0) g/dL Intake and Output 10/01/24 10/01/24 10/01/24 07:59 15:59 23:59 Intake Total 900 / 1000 100 / 1000 Output Total 350 / 350 Balance -350 / -350 900 / 1000 100 / 1000 Intake: Oral 700 / 700 IV 200 / 300 100 / 300 Ceftriaxone 2,000 mg In 0.9 % 100 / 100 Sodium Chloride 100 ml @ 200 mls/hr IV Q24H [facility] Rx#:[id number] Metronidazole/Sodium Chloride 100 / 200 100 / 200 500 mg In 100 ml @ 100 mls/hr IV Q6H [facility] Rx#:[id number] Output: Urine Amount (Catheter) 350 / 350 Pure Wick 350 / 350 Other: # Urine Diapers 1 Weight 105 kg Imaging and Cardiology Echo: report reviewed (Echocardiogram today showed normal ventricular systolic function with no pericardial effusion.) ECG results: image reviewed (ECG today showed sinus tachycardia with nonspecific T wave changes.) Assessment and Plan Assessment and Plan (1) Fever: (2) Abdominal pain: (3) CAD (coronary artery disease): Qualifiers: Coronary Disease-Associated Artery/Lesion type: [place] artery [place] vs. transplanted heart: [place] heart Associated angina: without angina Qualified Code(s): I25.10 - Atherosclerotic heart disease of [place] coronary artery without angina pectoris (4) Elevated troponin: (5) History of pulmonary embolism: (6) Essential hypertension: Plan 1. CAD, elevated troponin: He has no symptoms of angina. He has no clinical evidence of acute coronary syndrome. His echocardiogram today showed normal ventricular function. His ECG does not show any concerning changes. I think the elevated troponin represents type II myocardial infarction in the setting of an acute illness. I recommend continued aspirin and ezetimibe therapy. Continue carvedilol and isosorbide mononitrate. He is usually intent on Repatha for control of his LDL levels. This can be continued as an outpatient. 2. History of PE and DVT: Continue anticoagulation therapy with Eliquis. 3. Hypertension: Continue current antihypertensives, including carvedilol, lisinopril hydrochlorothiazide and amlodipine. Monitor blood pressure during the hospitalization. 4. Following discharge he can follow-up in the cardiology clinic as planned.
[2024-10-01 19:53] LABS: Glucometer 249 mg/dL (74-106)
[2024-10-01] MEDS: INSULIN GLARGINE 300 UNIT/3 ML INSULN.PEN 40 UNIT SQ (22:00)
[2024-10-01] MEDS: NON-FORMULARY 1 EACH (Rosuvastatin 40 mg tablet) 40 EACH PO (22:01)
[2024-10-01] MEDS: MONTELUKAST SODIUM 10 MG TABLET PO (22:01)
[2024-10-02] VITALS (22 sets, daily range): BP systolic 128–157; BP diastolic 75–87; PULSE 63–89; TEMP 36.9–38; O2SAT 90–94
[2024-10-02] MEDS: METRONIDAZOLE/SODIUM CHLORIDE 500 MG/100 ML PREMIX 100 MG IV ×4 (04:04→21:32)
[2024-10-02] MEDS: ACETAMINOPHEN 500 MG TABLET 1000 MG PO (04:47)
[2024-10-02 05:28] LABS: Basophils Percent Auto 0.4 % (0.2-2.0); Eosinophils Absolute Auto 0.1 10^3/uL (0.0-0.7); Eosinophils Percent Auto 1.1 % (0.9-7.0); Hemoglobin 12.7 g/dL (14.0-18.0); Immature Granulocytes Abs Auto 0.01 10^3/uL (0.00-0.03); Immature Granulocytes Pct Auto 0.2 % (0.0-0.5); Lymphocytes Absolute Auto 0.7 10^3/uL (1.2-3.8); Lymphocytes Percent Auto 14.6 % (20.5-60.0); Mean Corpuscular HGB Conc 33.4 g/dL (29.9-35.2); Mean Corpuscular Hemoglobin 28.2 pg (25.9-34.0); Mean Corpuscular Volume 84.4 fL (80.0-94.0); Monocytes Absolute Auto 0.4 10^3/uL (0.3-0.8); Monocytes Percent Auto 9.4 % (1.7-12.0); Neutrophils Absolute Auto 3.5 10^3/uL (1.4-6.5); Neutrophils Percent Auto 74.3 % (43.0-75.0); Platelet Count 122 10^3/uL (150-450); Red Cell Distribution Width 14.1 % (11.0-15.0); White Blood Count 4.7 10^3/uL (4.0-11.0)
--- NOTE | 2024-10-02 05:42 | P.PN_ITS ---
Progress Note: Subjective Subjective Interval history: Without specific complaints this morning. Denies chest pain, does have a little bit of a cough, states shortness of breath but not active Exam Constitutional Vital Signs, click to edit/add: Last Vital Signs Temp 100.4 F 10/02/24 04:47 Pulse 87 10/02/24 04:00 Resp 18 10/02/24 04:00 BP 157/86 H 10/02/24 04:00 Pulse Ox 90 L 10/02/24 00:00 O2 Del Method Room Air 10/02/24 04:00 Documenting provider has reviewed patient's vital signs: yes Common normals: no apparent distress Chest Common normals: inspection of chest normal Respiratory Common normals: normal respiratory effort and clear to auscultation bilaterally Cardio Common normals: regular rate and regular rhythm GI Common normals: soft to palpation; negative for Normal to inspection, nondistended, normoactive bowel sounds present (Obese) and tender Palpation: tender (Diffusely, less tender than yesterday no rebound) Progress Note: Objective Labs Labs: Short CBC 10/01/24 10/02/24 Range/Units 05:19 04:57 WBC 8.3 4.7 (4.0-11.0) 10^3/uL Hgb 13.8 L 12.7 L (14.0-18.0) g/dL Hct 41.2 L 38.0 L (42.0-54.0) % Plt Count 153 122 L (150-450) 10^3/uL BMP 10/01/24 05:19 Sodium 141 Potassium 3.8 Chloride 103 Carbon Dioxide 26.0 BUN 7.0 Creatinine 1.08 Glucose 264 H Calcium 8.8 Liver Function 10/01/24 10/01/24 10/01/24 Range/Units 05:19 05:19 05:19 Total Bilirubin 0.6 0.5 (0.2-1.0) mg/dL Direct Bilirubin 0.1 (0.0-0.2) mg/dL AST 55 H 54 H (15-37) U/L ALT 92 H (16-63) U/L Alkaline Phosphatase (46-116) U/L Albumin (3.4-5.0) g/dL 10/01/24 10/01/24 10/01/24 Range/Units 05:19 05:19 05:19 Total Bilirubin (0.2-1.0) mg/dL Direct Bilirubin (0.0-0.2) mg/dL AST (15-37) U/L ALT 89 H (16-63) U/L Alkaline Phosphatase 122 H 120 H (46-116) U/L Albumin 3.5 3.5 (3.4-5.0) g/dL Progress Note: A&P Assessment and Plan (1) Fever: (2) Abdominal pain: (3) CAD (coronary artery disease): Qualifiers: Associated angina: without angina Coronary Disease-Associated Artery/Lesion type: [place] artery [place] vs. transplanted heart: [place] heart Qualified Code(s): I25.10 - Atherosclerotic heart disease of [place] coronary artery without angina pectoris (4) Elevated troponin: (5) History of pulmonary embolism: (6) Essential hypertension: Plan Admission findings: Fever, 102.9, sinus tachycardia, mild respiratory distress and uncontrolled hypertension, normal white blood cell count but significant left shift with neutrophils 90%, severe hyperglycemia elevated liver function test, hypomagnesemia and elevated troponin, with fever, tachycardia, respiratory distress would be criteria for sepsis Fever and altered mental status with immune deficiency due to treating for prostate cancer-will check CT scan of his head-he denies headache no nuchal rigidity that would be consistent with meningitis-still had fever last night 100.4, maintain current antibiotics Abdominal pain with elevated liver enzymes, tenderness in the right upper quadrant,-amylase is elevated but lipase is normal, try patient on Protonix in case this is more gastric ulcer creating the amylase elevation, check ultrasound, if remains afebrile the rest of the day today and tomorrow, possible discharge to home tomorrow Elevated troponin-due to NSTEMI type II due to the infection and illness as outlined above Poorly controlled diabetes mellitus-insulin sliding scale Hypomagnesemia-supplement Hypertension-elevated on admission, continue with home medications and as needed hydralazine Long-term anticoagulation for stroke-on Eliquis and aspirin, maintain Hypercholesterolemia continue with home medications Asthma-continue with home medications-not acute Prostate cancer-maintain current medications Admission status: Patient with fever,, tachycardia, respiratory distress meeting criteria for sepsis uncertain source of infection but now with abdominal pain, checking CT scan with and due to altered mental status needs CT of brain also, patient condition from a laboratory standpoint is worse this morning with elevated liver function test, medically necessary treatment will span 2 midnights. Inpatient status Urinary Catheter Management Urinary Catheter Management Straight: Cath placed during this visit: yes Urethral indwelling: Yes Reason for continuing: acute urinary retention Insertion date: 09/30/24 Insertion time: 23:45 Pure Wick: Cath placed during this visit: no
[2024-10-02 05:51] LABS: Anion Gap 12.2; BUN Creatinine Ratio 11.1; Calcium 8.6 mg/dL (8.5-10.1); Carbon Dioxide 28.5 mmol/L (21.0-32.0); Chloride 101 mmol/L (98-107); Estimated GFR (African America >60 (>=60 mL/min/1.73m^2); Estimated GFR (Non-African Ame >60 (>=60 mL/min/1.73m^2); Glucose 213 mg/dL (74-106); Potassium 3.7 mmol/L (3.5-5.1); Sodium 138 mmol/L (136-145)
[2024-10-02 05:59] LABS: Amylase 137 U/L (25-115)
--- NOTE | 2024-10-02 06:32 | US_ITS ---
The [address] [address] Patient Name: EUNICE FREEMAN MRN: [id number] date: 1955 Sex: M Assigned Patient Location: Current Patient Location: Accession/Order Number: [id number] Exam Date: 10/02/2024 07:30 Report Date: 10/02/2024 08:23 At the request of: PAPITO PUENTE Procedure: US right upper quadrant EXAM: US right upper quadrant HISTORY: Elevated amylase COMPARISON: CT scan 10/01/2024 TECHNIQUE: Grayscale, color and Doppler FINDINGS: The liver is normal in size and contour measuring 17.2 cm in length. Diffuse increase in hepatic echotexture with no focal mass. Hepatopedal flow in the main portal vein. The gallbladder is normal in size. The wall measures 1.7 mm per the common bile duct measures 2.3 mm. Negative sonographic Horne sign. The visualized portions of the pancreas are normal. The pancreas is poorly visualized The right kidney is grossly normal in size and contour. Noted along the upper pole is an area of anechoic echogenicity measuring 3.9 cm, a simple cyst is favored. No hydronephrosis. No free fluid US/US right upper quadrant IMPRESSION: Echogenic liver suggesting hepatic steatosis Electronically authenticated by: ZAYNAB PEREZ Date: 10/02/2024 08:23
[2024-10-02 07:08] LABS: Alanine Aminotransferase 97 U/L (16-63); Albumin Globulin Ratio 0.9; Albumin Level 3.2 g/dL (3.4-5.0); Alkaline Phosphatase 102 U/L (46-116); Aspartate Amino Transferase 73 U/L (15-37); Bilirubin Direct 0.1 mg/dL (0.0-0.2); Bilirubin Total 0.3 mg/dL (0.2-1.0); Globulin 3.5 g/dL; Total Protein 6.7 g/dL (6.4-8.2)
--- NOTE | 2024-10-02 08:10 | XR_ITS ---
The [place] [id number] Patient Name: EUNICE FREEMAN MRN: [id number] date: 1955 Sex: M Assigned Patient Location: [place] Current Patient Location: Accession/Order Number: [id number] Exam Date: 10/02/2024 08:00 Report Date: 10/02/2024 08:25 At the request of: PAPITO PUENTE Procedure: XR chest 1V EXAM: XR chest 1V HISTORY: cough COMPARISON: 09/30/2024 TECHNIQUE: AP portable FINDINGS: LUNGS: No significant pulmonary parenchymal abnormalities. VASCULATURE: No increased pulmonary vasculature. PLEURA: No pneumothorax, effusion, or pleural thickening. CARDIAC: No cardiomegaly or cardiac silhouette abnormality. MEDIASTINUM: No visible mass or adenopathy. Loop recorder. Aortic atherosclerosis BONES: No fracture or visible bone lesion. OTHER: Negative. XR/XR chest 1V IMPRESSION: No acute disease. Electronically authenticated by: ZAYNAB PEREZ Date: 10/02/2024 08:25
--- NOTE | 2024-10-02 08:29 | CM.NOTE ---
Rounds made with Dr. Palencia. Dr. Palencia reviews plan of care and need for Ultrasound of abdomen d/t elevated labs. Mr. Marte verbalizes understanding. Encouraged ambulation. No discharge today.
[2024-10-02] MEDS: CHOLECALCIFEROL (VITAMIN D3) 25 MCG/1,000 UNITS TABLET 50 MCG PO (08:44)
[2024-10-02] MEDS: LISINOPRIL/HYDROCHLOROTHIAZIDE 20-12.5 MG TABLET 1 TAB PO ×2 (08:44→21:37)
[2024-10-02] MEDS: MAGNESIUM OXIDE 400 MG TABLET PO ×2 (08:44→21:39)
[2024-10-02] MEDS: ISOSORBIDE MONONITRATE 30 MG TAB.ER.24H PO (08:44)
[2024-10-02] MEDS: PIOGLITAZONE 15 MG TABLET 30 MG PO (08:44)
[2024-10-02] MEDS: TAMSULOSIN HCL 0.4 MG CAPSULE PO (08:45)
[2024-10-02] MEDS: GLIPIZIDE 10 MG TABLET PO (08:45)
[2024-10-02] MEDS: ASPIRIN 81 MG TABLET.DR PO (08:45)
[2024-10-02] MEDS: APIXABAN 5 MG TABLET PO ×2 (08:45→21:39)
[2024-10-02] MEDS: CALCIUM CARBONATE 600 MG/VITAMIN D3 400 IU TABLET 1 TAB PO (08:45)
[2024-10-02] MEDS: EZETIMIBE 10 MG TABLET PO (08:45)
[2024-10-02] MEDS: AMLODIPINE BESYLATE 5 MG TABLET 10 MG PO (08:45)
[2024-10-02] MEDS: CARVEDILOL 6.25 MG TABLET PO ×2 (08:45→21:39)
[2024-10-02] MEDS: INSULIN ASPART 300 UNIT/3 ML PEN SUBQ ×3 (08:46→21:44)
[2024-10-02] MEDS: RELUGOLIX 120 MG 120 EACH PO (08:46)
[2024-10-02] MEDS: CEFTRIAXONE 2,000 MG in 0.9 % SODIUM CHLORIDE 100 ML 200 MG IV (08:49)
[2024-10-02] MEDS: PANTOPRAZOLE SODIUM 40 MG VIAL IV (08:51)
[2024-10-02 09:07] LABS: HBsAg Screen Negative (Negative); HCV Ab Non Reactive (Non Reactive); Hep A Ab, IgM Negative (Negative); Hep B Core Ab, IgM Negative (Negative)
--- NOTE | 2024-10-02 09:19 | REH.PTDLY ---
Physical Therapy Daily Note PT Daily Note/Assess Start: 10/01/24 10:57 Freq: Status: Active Protocol: Document 10/02/24 09:14 BARBRALIZA (Rec: 10/02/24 09:19 [facility] [id number]) Physical Therapy Daily Note/Assessment Time In 08:25 Time Out 08:45 Subjective Pt in bed upon arrival and awake. Talks soft and gives short yes or no responses. Ok to participate in therapy . Therapeutic Exercise 7 Minutes (minutes) Therapeutic Exercise 0 Units Therapeutic Exercise Instructed in B LE seated exs with cues and demo. Pt Treatment performs at slow pace 10x ea with HR/TR, marching, LAQ, hip abd and hip add squeezes for improved strength. Therapeutic Activity 9 Minutes (minutes) Therapeutic Activity 1 Units Therapeutic Activity Mod A with supine to sit transfers. Cues to advance Comments leg to floor, with pt attempting but needs Min A. Good seated posture noted. Sit to stand transfer Mod A with pt using RW to help pull himself up, does not follow cues to place hands on bed. Min A for support while standing while nursing washes pt's back, pt stood for 2 mins. Cues for pt to ambulate to chair. Pt takes slower small strides to chair with RW Min A. Cues to reach back for chair once he feels it behind him. Total Therapy 16 Minutes Total Physical 1 Therapy Units Daily Note Summary Pt requires Mod A for majority of transfers and Min A with gait. Pt quiet during rx with minimal response given when spoken to. Pt would need SNF therapy at [place] due to assist being needed with transfers and gait today. As well as assistance needed to help maintain standing balance.
--- NOTE | 2024-10-02 09:42 | SWNOTE1 ---
SW spoke to pt's this morning in regards to pt not doing well with therapy again. She stated I guess we will have to do whatever he needs. She voiced she does still work so he would be home alone, this would be safest for him to go to SNF. Pt's does not have a preference, but would be best somewhere in [place] such as [place], [place], or [place]. Pt's is alright with wherever. She did state he is stubborn. SW to speak with pt. SW did reach out to [facility] to see if they have openings, waiting to hear back.
--- NOTE | 2024-10-02 10:54 | SWNOTE1 ---
SW stopped back in room and spoke with pt about rehab. After a lengthy conversation about the benefits of rehab, pt still wants to return home. SW asked permission to call pt's so he can talk to her. Pt is agreeable. SW called pt's . They discussed rehab over the phone. Pt's expressed to pt that he needs to take care of himself and he needs to go to rehab if they recommend it. She asked pt how he was going to get around at home? HE stated he can do it. After pt, pt's , and SW conversed it was decided that we will have a plan A of home with HH, but if pt does not show he can ambulate with therapy then plan B will be rehab. Pt and ok with SW setting up both. SW already sent referral to [facility] for [facility]hab and SW to send referral to [facility] as he has had them in past.
--- NOTE | 2024-10-02 11:22 | SWNOTE1 ---
[facility] [facility] does not have an opening. SW sent referral to [facility] in [place]. SW also sent referral to [facility]. Referral sent to [place] and [facility]. Referral included face sheet, ED note, H&P, provider notes, case management report, nursing notes, diagnostic imaging, med list, and PT/OT notes.
[2024-10-02 11:48] LABS: Glucometer 241 mg/dL (74-106)
--- NOTE | 2024-10-02 12:55 | SWNOTE1 ---
SW received call from [facility] and they are not able to accept as they are not in network. SW sent referral to [address]
--- NOTE | 2024-10-02 14:29 | SWNOTE1 ---
SW heard back from [facility] and after reviewing they determine they do not have bed availabiltiy. SW reached out to [facility] and they do have openings. Referral sent to [facility]. Referral included face sheet, ED note, H&P, provider notes, case management report, nursing notes, diagnostic imaging, med list, and PT/OT notes.
--- NOTE | 2024-10-02 15:55 | SWNOTE1 ---
[facility] still reviewing.
--- NOTE | 2024-10-02 15:58 | SWNOTE1 ---
SW spoke to [address] and they received and are still working on verifying his insurance.
[2024-10-02] MEDS: 0.9 % SODIUM CHLORIDE 250 ML 10 ML IV (16:03)
[2024-10-02 17:20] LABS: Glucometer 108 mg/dL (74-106)
[2024-10-02 20:41] LABS: Glucometer 169 mg/dL (74-106)
[2024-10-02] MEDS: MONTELUKAST SODIUM 10 MG TABLET PO (21:39)
[2024-10-02] MEDS: INSULIN GLARGINE 300 UNIT/3 ML INSULN.PEN 40 UNIT SQ (21:46)
[2024-10-02] MEDS: NON-FORMULARY 1 EACH (Rosuvastatin 40 mg tablet) 40 EACH PO (21:51)
[2024-10-03] VITALS (13 sets, daily range): BP systolic 128–144; BP diastolic 71–80; PULSE 82–87; TEMP 36.7–37.7; O2SAT 90–95
[2024-10-03] MEDS: METRONIDAZOLE/SODIUM CHLORIDE 500 MG/100 ML PREMIX 100 MG IV ×2 (04:47→09:58)
[2024-10-03 05:51] LABS: Basophils Percent Auto 0.6 % (0.2-2.0); Eosinophils Absolute Auto 0.1 10^3/uL (0.0-0.7); Eosinophils Percent Auto 1.8 % (0.9-7.0); Hematocrit 39.7 % (42.0-54.0); Hemoglobin 13.2 g/dL (14.0-18.0); Lymphocytes Absolute Auto 1.2 10^3/uL (1.2-3.8); Lymphocytes Percent Auto 35.5 % (20.5-60.0); Mean Corpuscular HGB Conc 33.2 g/dL (29.9-35.2); Mean Corpuscular Volume 84.3 fL (80.0-94.0); Mean Platelet Volume 10.8 fL (9.5-13.5); Monocytes Absolute Auto 0.4 10^3/uL (0.3-0.8); Monocytes Percent Auto 12.2 % (1.7-12.0); Neutrophils Absolute Auto 1.7 10^3/uL (1.4-6.5); Neutrophils Percent Auto 49.9 % (43.0-75.0); Platelet Count 129 10^3/uL (150-450); Red Blood Count 4.71 10^6/uL (4.70-6.10); Red Cell Distribution Width 13.9 % (11.0-15.0); White Blood Count 3.4 10^3/uL (4.0-11.0)
--- NOTE | 2024-10-03 06:06 | P.PN_ITS ---
Progress Note: Subjective Subjective Interval history: Without specific complaints this morning. Denies chest pain, does have a little bit of a cough, states shortness of breath but not active Exam Constitutional Vital Signs, click to edit/add: Last Vital Signs Temp 98.0 F 10/03/24 03:59 Pulse 83 10/03/24 04:05 Resp 18 10/03/24 03:59 BP 128/71 10/03/24 03:59 Pulse Ox 90 L 10/03/24 04:13 O2 Del Method Room Air 10/03/24 04:13 Progress Note: Objective Labs Labs: Short CBC 10/03/24 Range/Units 04:56 WBC 3.4 L (4.0-11.0) 10^3/uL Hgb 13.2 L (14.0-18.0) g/dL Hct 39.7 L (42.0-54.0) % Plt Count 129 L (150-450) 10^3/uL Liver Function 10/02/24 Range/Units 04:57 Total Bilirubin 0.3 (0.2-1.0) mg/dL Direct Bilirubin 0.1 (0.0-0.2) mg/dL AST 73 H (15-37) U/L ALT 97 H (16-63) U/L Alkaline Phosphatase 102 (46-116) U/L Albumin 3.2 L (3.4-5.0) g/dL Progress Note: A&P Assessment and Plan (1) Fever: (2) Abdominal pain: (3) CAD (coronary artery disease): Qualifiers: Coronary Disease-Associated Artery/Lesion type: [place] artery [place] vs. transplanted heart: [place] heart Associated angina: without angina Qualified Code(s): I25.10 - Atherosclerotic heart disease of [place] coronary artery without angina pectoris (4) Elevated troponin: (5) History of pulmonary embolism: (6) Essential hypertension: Plan Admission findings: Fever, 102.9, sinus tachycardia, mild respiratory distress and uncontrolled hypertension, normal white blood cell count but significant left shift with neutrophils 90%, severe hyperglycemia elevated liver function test, hypomagnesemia and elevated troponin, with fever, tachycardia, respiratory distress would be criteria for sepsis Fever and altered mental status with immune deficiency due to treating for prostate cancer-will check CT scan of his head-he denies headache no nuchal rigidity that would be consistent with meningitis-still had fever last night 100.4, maintain current antibiotics Abdominal pain with elevated liver enzymes, tenderness in the right upper quadrant,-amylase is elevated but lipase is normal, try patient on Protonix in case this is more gastric ulcer creating the amylase elevation, check ultrasound, if remains afebrile the rest of the day today and tomorrow, possible discharge to home tomorrow Elevated troponin-due to NSTEMI type II due to the infection and illness as outlined above Poorly controlled diabetes mellitus-insulin sliding scale Hypomagnesemia-supplement Hypertension-elevated on admission, continue with home medications and as needed hydralazine Long-term anticoagulation for stroke-on Eliquis and aspirin, maintain Hypercholesterolemia continue with home medications Asthma-continue with home medications-not acute Prostate cancer-maintain current medications Admission status: Patient with fever,, tachycardia, respiratory distress meeting criteria for sepsis uncertain source of infection but now with abdominal pain, checking CT scan with and due to altered mental status needs CT of brain also, patient condition from a laboratory standpoint is worse this morning with elevated liver function test, medically necessary treatment will span 2 midnights. Inpatient status Urinary Catheter Management Urinary Catheter Management Straight: Cath placed during this visit: yes Urethral indwelling: Yes Insertion date: 09/30/24 Insertion time: 23:45 Pure Wick: Cath placed during this visit: no
[2024-10-03 06:08] LABS: Anion Gap 9.6; Calcium 8.7 mg/dL (8.5-10.1); Carbon Dioxide 31.5 mmol/L (21.0-32.0); Chloride 100 mmol/L (98-107); Estimated GFR (African America >60 (>=60 mL/min/1.73m^2); Estimated GFR (Non-African Ame >60 (>=60 mL/min/1.73m^2); Glucose 84 mg/dL (74-106); Potassium 3.1 mmol/L (3.5-5.1); Sodium 138 mmol/L (136-145)
[2024-10-03 06:23] LABS: Alanine Aminotransferase 83 U/L (16-63); Albumin Globulin Ratio 0.9; Albumin Level 3.2 g/dL (3.4-5.0); Alkaline Phosphatase 101 U/L (46-116); Aspartate Amino Transferase 64 U/L (15-37); Bilirubin Direct 0.1 mg/dL (0.0-0.2); Bilirubin Total 0.3 mg/dL (0.2-1.0); Globulin 3.6 g/dL; Total Protein 6.8 g/dL (6.4-8.2)
[2024-10-03 06:24] LABS: Amylase 163 U/L (25-115)
[2024-10-03 06:33] LABS: Troponin I High Sensitivity 587.3 pg/mL (4.0-76.1)
--- NOTE | 2024-10-03 08:21 | P.DS_ITS ---
DS: Providers Provider Date of admission: 10/01/24 07:43 Primary care physician: Adilson Luu MD Consults: 10/01/24 06:20 Consult to Pharmacy Routine Consulting Provider: Reason for consultation: Please [place] me when Med Rec is Updated Has provider been notified: No Occupational Therapy Eval and Treat Routine Reason for consultation: Only if needed for Rehab Has provider been notified: No Physical Therapy Eval and Treat Routine Reason for consultation: Eval and Treat Has provider been notified: No 10/01/24 10:18 Consult to Cardiology Routine Reason for consultation: elevated trop DS: Diagnosis Discharge Diagnosis (1) Fever: (2) Abdominal pain: (3) CAD (coronary artery disease): Qualifiers: Associated angina: without angina Coronary Disease-Associated Artery/Lesion type: [place] artery [place] vs. transplanted heart: [place] heart Qualified Code(s): I25.10 - Atherosclerotic heart disease of [place] coronary artery without angina pectoris (4) Elevated troponin: (5) History of pulmonary embolism: (6) Essential hypertension: Plan Admission findings: Fever, 102.9, sinus tachycardia, mild respiratory distress and uncontrolled hypertension, normal white blood cell count but significant left shift with neutrophils 90%, severe hyperglycemia elevated liver function test, hypomagnesemia and elevated troponin, with fever, tachycardia, respiratory distress would be criteria for sepsis Fever and altered mental status with immune deficiency due to treating for prostate cancer-will check CT scan of his head-he denies headache no nuchal rigidity that would be consistent with meningitis-still had fever last night 100.4, maintain current antibiotics Abdominal pain with elevated liver enzymes, tenderness in the right upper quadrant,-amylase is elevated but lipase is normal, try patient on Protonix in case this is more gastric ulcer creating the amylase elevation, check ultrasound, if remains afebrile the rest of the day today and tomorrow, possible discharge to home tomorrow Elevated troponin-due to NSTEMI type II due to the infection and illness as outlined above Poorly controlled diabetes mellitus-insulin sliding scale Hypomagnesemia-supplement Hypertension-elevated on admission, continue with home medications and as needed hydralazine Long-term anticoagulation for stroke-on Eliquis and aspirin, maintain Hypercholesterolemia continue with home medications Asthma-continue with home medications-not acute Prostate cancer-maintain current medications Admission status: Patient with fever,, tachycardia, respiratory distress meeting criteria for sepsis uncertain source of infection but now with abdominal pain, checking CT scan with and due to altered mental status needs CT of brain also, patient condition from a laboratory standpoint is worse this morning with elevated liver function test, medically necessary treatment will span 2 midnights. Inpatient status DS: Summary Hospital Course Hospital Course: Patient present to the emergency room with increasing fatigue, altered mental status, and fever, was febrile up to over 102, workup really did not find anything significant he did have some significant abdominal pain and elevated liver function test, abdominal exam was consistent with diverticulitis and patient was started on Rocephin and Flagyl to cover diverticulitis possibility still had fever as of yesterday, fever free today, moving around somewhat better still with significant weakness, with laboratory results stabilizing he is stable for discharge to home, medications see list, follow-up with PCP next week Physical therapy evaluation, PT worked with patient and he is safe to use a walker, [id number] evaluation completed today. He would need a walker for continuous use Status at Discharge Overall status at discharge: patient is not back to baseline Time Spent with Patient Time attestation: Total time spent providing and/or coordinating discharge services: Time spent: greater than 30 minutes Exam Constitutional Vital Signs, click to edit/add: Last Vital Signs Temp 99.9 F 10/03/24 08:08 Pulse 85 10/03/24 08:08 Resp 14 10/03/24 08:08 BP 144/80 H 10/03/24 08:08 Pulse Ox 93 L 10/03/24 08:08 O2 Del Method Room Air 10/03/24 08:08 Documenting provider has reviewed patient's vital signs: yes Common normals: no apparent distress Chest Common normals: inspection of chest normal Respiratory Common normals: normal respiratory effort and clear to auscultation bilaterally Cardio Common normals: regular rate and regular rhythm GI Common normals: soft to palpation; negative for Normal to inspection, nondistended, normoactive bowel sounds present (Obese) and tender Palpation: tender (Diffusely, less tender than yesterday no rebound) DS: Data Data Completed and Pending Labs on day of discharge: Labs from last 24 hours 10/03/24 10/02/24 10/02/24 04:56 20:34 17:11 WBC 3.4 L RBC 4.71 Hgb 13.2 L Hct 39.7 L MCV 84.3 MCH 28.0 MCHC 33.2 RDW 13.9 Plt Count 129 L MPV 10.8 Neut % (Auto) 49.9 Lymph % (Auto) 35.5 Cannon % (Auto) 12.2 H Eos % (Auto) 1.8 Baso % (Auto) 0.6 Neut # (Auto) 1.7 Lymph # (Auto) 1.2 Cannon # (Auto) 0.4 Eos # (Auto) 0.1 Baso # (Auto) 0.0 Abs Immat Gran (auto) 0.00 Imm/Tot Granulo (auto) 0.0 Sodium 138 Potassium 3.1 L Chloride 100 Carbon Dioxide 31.5 Anion Gap 9.6 BUN 10.0 Creatinine 1.11 Est GFR ( Amer) >60 Est GFR (Non-Af Amer) >60 BUN/Creatinine Ratio 9.0 Glucose 84 Calcium 8.7 Total Bilirubin 0.3 Direct Bilirubin 0.1 AST 64 H ALT 83 H Alkaline Phosphatase 101 Troponin I High Sens 587.3 H* NT-Pro-B Natriuret Pep 54.0 Total Protein 6.8 Albumin 3.2 L Globulin 3.6 Albumin/Globulin Ratio 0.9 Amylase 163 H Lipase 26.0 Hepatitis A IgM Ab Hep Bs Antigen Hep B Core IgM Ab Hepatitis C Antibody Hepatitis C Interp POC Glucose 169 H 108 H 10/02/24 10/01/24 11:37 06:54 WBC RBC Hgb Hct MCV MCH MCHC RDW Plt Count MPV Neut % (Auto) Lymph % (Auto) Cannon % (Auto) Eos % (Auto) Baso % (Auto) Neut # (Auto) Lymph # (Auto) Cannon # (Auto) Eos # (Auto) Baso # (Auto) Abs Immat Gran (auto) Imm/Tot Granulo (auto) Sodium Potassium Chloride Carbon Dioxide Anion Gap BUN Creatinine Est GFR ( Amer) Est GFR (Non-Af Amer) BUN/Creatinine Ratio Glucose Calcium Total Bilirubin Direct Bilirubin AST ALT Alkaline Phosphatase Troponin I High Sens NT-Pro-B Natriuret Pep Total Protein Albumin Globulin Albumin/Globulin Ratio Amylase Lipase Hepatitis A IgM Ab Negative Hep Bs Antigen Negative Hep B Core IgM Ab Negative Hepatitis C Antibody Non reactive Hepatitis C Interp Comment POC Glucose 241 H Preliminary micro results at discharge 09/30/24 23:02 Blood Culture Result 2 - Preliminary Blood - Right Antecubital NO GROWTH AT 36-48 HOURS. FINAL TO FOLLOW. 09/30/24 22:48 Blood Culture Result 1 - Preliminary Blood - Left Hand NO GROWTH AT 36-48 HOURS. FINAL TO FOLLOW. Discharge Plan Discharge Disposition: Home, Self-Care Condition: Fair Discharge Medications: New magnesium oxide 400 mg (241.3 mg magnesium) Tablet 400 mg PO BID Qty: 60 11RF cefdinir 300 mg capsule 600 mg PO DAILY 10 Days Qty: 20 0RF pantoprazole [Protonix] 40 mg tablet,delayed release (DR/EC) 40 mg PO DAILY Qty: 30 11RF Continued insulin glargine-yfgn [Semglee(insulin glarg-yfgn)Pen] 100 unit/mL (3 mL) insulin pen 40 unit SUBCUT .QHS aspirin 81 mg capsule 81 mg PO DAILY amlodipine 10 mg tablet 10 mg PO DAILY ezetimibe 10 mg tablet 10 mg PO QAM glipizide 10 mg tablet 10 mg PO BIDWM lisinopril-hydrochlorothiazide 20-12.5 mg tablet 1 tab PO BID metformin 500 mg tablet extended release 24 hr 500 mg PO BID montelukast 10 mg tablet 10 mg PO .QHS pioglitazone 30 mg tablet 30 mg PO DAILY tamsulosin 0.4 mg capsule 0.4 mg PO DAILY rosuvastatin 40 mg tablet 40 mg PO .QHS Repatha SureClick 140 mg/mL pen injector 140 mg subcut Q14D carvedilol 6.25 mg Tablet 6.25 mg PO BID 30 Days Qty: 60 0RF Eliquis 5 mg Tablet 5 mg PO BID 30 Days Qty: 72 0RF Rx Instructions: Please take 10mg PO BID x 6 days, then 5mg PO BID isosorbide mononitrate 30 mg tablet extended release 24 hr 30 mg PO .q am Orgovyx 120 mg tablet 120 mg PO Q24H Activity: increase activity as tolerated and resume usual activities as tolerated Diet: diabetic diet Print Language: Australian Patient Instructions: Cefdinir (By mouth) (Omnicef), Pantoprazole (By mouth) (Protonix), Magnesium Oxide (By mouth) (Mag-Ox 400, [facility]..., Hypertension (DC) Forms: Portal Instructions Follow Up Appointments: . Sep. @ 11am with [facility] [phone] @ 11:30am with Dr. Luu [phone] Discharge Date/Time: 10/03/24 13:30 Discharge location: Home
--- NOTE | 2024-10-03 08:43 | CM.NOTE ---
Rounds made with Dr. Palencia, pt will discharge to home if pt does well with PT. Pt will f/u with Cardiology and PCP. Pt verbalizes that he wants to go home with HH instead of going skilled at discharge.
[2024-10-03] MEDS: POTASSIUM CHLORIDE 40 MEQ in 0.9 % SODIUM CHLORIDE 250 ML 67.5 MEQ IV (09:30)
[2024-10-03] MEDS: RELUGOLIX 120 MG 120 EACH PO (09:30)
[2024-10-03] MEDS: CHOLECALCIFEROL (VITAMIN D3) 25 MCG/1,000 UNITS TABLET 50 MCG PO (09:49)
[2024-10-03] MEDS: LISINOPRIL/HYDROCHLOROTHIAZIDE 20-12.5 MG TABLET 1 TAB PO (09:50)
[2024-10-03] MEDS: PIOGLITAZONE 15 MG TABLET 30 MG PO (09:50)
[2024-10-03] MEDS: ISOSORBIDE MONONITRATE 30 MG TAB.ER.24H PO (09:50)
[2024-10-03] MEDS: TAMSULOSIN HCL 0.4 MG CAPSULE PO (09:51)
[2024-10-03] MEDS: CALCIUM CARBONATE 600 MG/VITAMIN D3 400 IU TABLET 1 TAB PO (09:51)
[2024-10-03] MEDS: METFORMIN HCL 500 MG TAB.ER.24H PO (09:51)
[2024-10-03] MEDS: CARVEDILOL 6.25 MG TABLET PO (09:51)
[2024-10-03] MEDS: APIXABAN 5 MG TABLET PO (09:51)
[2024-10-03] MEDS: MAGNESIUM OXIDE 400 MG TABLET PO (09:51)
[2024-10-03] MEDS: AMLODIPINE BESYLATE 5 MG TABLET 10 MG PO (09:51)
[2024-10-03] MEDS: ASPIRIN 81 MG TABLET.DR PO (09:51)
[2024-10-03] MEDS: EZETIMIBE 10 MG TABLET PO (09:51)
[2024-10-03] MEDS: POTASSIUM CHLORIDE 10 MEQ ER TABLET PO (09:52)
[2024-10-03] MEDS: GLIPIZIDE 10 MG TABLET PO (09:52)
[2024-10-03] MEDS: CEFTRIAXONE 2,000 MG in 0.9 % SODIUM CHLORIDE 100 ML 200 MG IV (09:52)
[2024-10-03] MEDS: PANTOPRAZOLE SODIUM 40 MG VIAL IV (09:52)
--- NOTE | 2024-10-03 10:59 | PT.DAILY ---
Physical Therapy Daily Note PT Daily Note/Assess Start: 10/01/24 10:57 Freq: Status: Active Protocol: Document 10/03/24 10:54 OLIVIA (Rec: 10/03/24 10:59 OLIVIA [id number]) Physical Therapy Daily Note/Assessment Time In/Time Out Time In 09:10 Time Out 09:30 Pain In Pain N/A Pain Out Pain N/A Subjective Subjective Pt supine upon arrival. Agreeable to PT. Denies pain currently. Therapeutic Exercise Time Therapeutic Exercise 5 Minutes (minutes) Therapeutic Exercise 0 Units Therapeutic Exercise Treatment Therapeutic Exercise seated bilat LE strengthening ex complete while sitting Treatment in BS chair 10x ea - need occ to stay on task and for proper form Therapeutic Activity Time Therapeutic Activity 10 Minutes (minutes) Therapeutic Activity 1 Units Therapeutic Activity Treatment Bed Mobility Ability Moderate Assist Chair Transfer Moderate Assist Ability Therapeutic Activity Supine>sit ModA to shift LE's and to advance upper body Comments to sit EOB. Occ Rolo to maintain upright posture while sitting EOB due to posterior lean. Pt sit>stand from elevated bed with modA due to posterior lean - vc for proper hand placement with standing transfer. Pt stand pivots to BS chair with Rolo. Pt sit>stand from BS chair to RW with ModA due to posterior lean. Pt amb 40' with RW, Rolo and assist for IV pole. Pt demonstrates short step length with decreased romi. Increased time needed to negotiate walker when turning around. Pt returned to BS chair upon completion with call light within reach, chair alarm activated, and needs met. Total Physical Therapy Time Total Therapy 15 Minutes Total Physical 1 Therapy Units Summary Daily Note Summary Improved gait ability but cont to require moderate assistance for transfers due to core weakness and posterior lean.
--- NOTE | 2024-10-03 11:35 | SWNOTE1 ---
PT worked with pt 2x this morning. SW spoke to phsyical therapist and he did walk to and from bathroom, had troubles getting up out of chair, moderate assist. Pt has voiced several times that he wants to go home and do home health. SW did reach out to doctor and at this time pt will be discharge home today. Pt is not agreeable to go to rehab. SW still working with [address], they are trying to verify his insurance. ANDRA provided [facility] with a phone number for insurance. ANDRA called and spoke to . She voice understanding. She did ask where she could buy him depends and wipes. SW advised any store like [employer], [employer] [facility], etc. Pt's also asked about walker. SW to reach out to doctor to see if he will document need for walker. ANDRA sent message to doctor, waiting to hear back.
--- NOTE | 2024-10-03 11:47 | SWNOTE1 ---
SW received call from [facility] and they are not able to accept due to insurance.
--- NOTE | 2024-10-03 11:59 | SWNOTE1 ---
Case management was able to look online and find in network companies. SW sent to [facility] .
--- NOTE | 2024-10-03 12:54 | SWNOTE1 ---
[facility] is not able to accept. SW sent referral to [facility].
--- NOTE | 2024-10-03 13:36 | SWNOTE1 ---
[facility] called and they are not in network. ANDRA sent referral to [facility]. Pt is being discharged and is here. SW explained to that at this time SW is not able to find HH company due to insurance, but SW will continue to try. ANDRA also explained that SW can't move forward with getting walker until doctor documents need for walker. SW to keep pt's updated. SW did ask if any of there friends had walkers they could borrow? She is going to check. ANDRA also advised she may be able to find one for cheap at [employer] or any hand me down store. Pt's will check it out.
--- NOTE | 2024-10-03 14:18 | SWNOTE1 ---
Doctor did document need for walker. SW to send to [facility] once script is complete.
--- NOTE | 2024-10-03 15:07 | SWNOTE1 ---
SW received a call from [facility] and they are not able to accept due to staffing issues. ANDRA sent referral to [facility].
--- NOTE | 2024-10-04 15:18 | CM.DCFOLLOWU ---
Person spoke with: Bossman How are you feeling? Good How is your pain? No pain Did you understand your discharge instructions? yes Do you have any questions about your discharge instructions? No Were you given any prescriptions at discharge? Yes Were you able to get your prescriptions filled? Yes Do you understand how to take your medications as ordered? Yes Do you have any questions about your follow up appointment and do you plan to keep your follow up appointment? No questions scheduled with PCP and Sales Training Representative Is there anything else that you would like to discuss? No Questions/Comments/Concerns/Other:
--- NOTE | 2024-10-04 15:29 | SWNOTE1 ---
SW called to let her know that SW received call from [facility] and they are not able to get walker because pt's insurance is not verifying. She voiced she is going to call Dr. Luu. SW let her know that SW will updated Dr. Luu as well. SW messaged Dr. Luu about walker and HH.
== END 2024-10-03 13:30 | disposition home or self-care (01) | DRG 871 ==
LOC: ER 10-01 00:11 → MS 10-01 00:50
PROVIDERS: Registered Nurse; Admitting Provider Family Medicine; Emergency Provider Emergency Medicine; PCP Family Medicine; Visit Provider Family Medicine
DX: A41.9 Sepsis, unspecified organism (principal); I21.A1 Myocardial infarction type 2; K57.92 Diverticulitis of intestine, part unspecified, without perforation or abscess without bleeding; D84.821 Immunodeficiency due to drugs; R06.03 Acute respiratory distress; F01.50 Vascular dementia, unspecified severity, without behavioral disturbance, psychotic disturbance, mood disturbance, and anxiety; I67.9 Cerebrovascular disease, unspecified; I10 Essential (primary) hypertension; E11.65 Type 2 diabetes mellitus with hyperglycemia; E83.42 Hypomagnesemia; C61 Malignant neoplasm of prostate; Z79.01 Long term (current) use of anticoagulants; E78.00 Pure hypercholesterolemia, unspecified; J45.909 Unspecified asthma, uncomplicated; I25.2 Old myocardial infarction; G47.30 Sleep apnea, unspecified; Z95.818 Presence of other cardiac implants and grafts; Z86.73 Personal history of transient ischemic attack (TIA), and cerebral infarction without residual deficits; Z87.891 Personal history of nicotine dependence; Z79.4 Long term (current) use of insulin; Z79.84 Long term (current) use of oral hypoglycemic drugs; Z79.82 Long term (current) use of aspirin; R50.9 Fever, unspecified; R10.9 Unspecified abdominal pain; I25.10 Atherosclerotic heart disease of native coronary artery without angina pectoris; Z86.711 Personal history of pulmonary embolism; R10.11 Right upper quadrant pain
CPT/HCPCS: 36415; 70470; 71045; 74177; 76705; 80048; 80053; 80074; 80076; 81001; 82140; 82150; 82948; 83605; 83690; 83735; 83880; 84484; 85007; 85025; 85027; 85610; 85652; 85730; 86140; 87040; 87804; 87811; 93005; 93308; 94667; 94668; 94761; 97161; 97165; 97530; 97535; 99285; J0696; J1836; J3480; Q9966; Q9967

== ENCOUNTER 2024-11-09 08:52 | Outpatient (OUT) | payer OTHER, MEDICARE, SELFPAY ==
--- NOTE | 2024-11-09 09:00 | CA_ITS ---
Patient Name: EUNICE FREEMAN MR#: [id number] : 1955 Exam Date: 11/09/2024 Ordering Doctor: KELSEY JUDD M.D. ECHOCARDIOGRAM REPORT PROCEDURE: CA ECHO DOPPLER COMPLETE INDICATIONS: Chest pain, coronary artery disease, hypertension, diabetes COMPARISON: None. DESCRIPTION: COMPLETE ECHOCARDIOGRAM Real-time transthoracic echocardiography with 2D, M-mode, spectral and color flow Doppler performed. QUALITY: Technical quality was good. LEFT VENTRICLE: Normal chamber size. Thickened upper septal wall. Mild to moderate concentric hypertrophy. Normal systolic function. No evidence of LVOT obstruction. LV EF: Normal left ventricular ejection fraction, (>55%). DIASTOLIC: Normal diastolic function. ATRIAL SEPTUM: LEFT ATRIUM: Normal chamber size. RIGHT ATRIUM: Normal chamber size. RIGHT VENTRICLE: Normal chamber size. Normal right ventricular systolic function. TRICUSPID VALVE: Normal mobility and thickness. No stenosis with no regurgitation. Unable to assess right-sided pressures due to lack of measurable tricuspid regurgitation. MITRAL VALVE: Normal mobility and thickness. No evidence of mitral valve stenosis. There is no mitral annular calcification. Trivial mitral regurgitation. AORTIC VALVE: Normal trileaflet appearance. No visible sclerosis. Normal leaflet mobility. No evidence of aortic valve stenosis. No aortic regurgitation. AORTIC ROOT: Mildly dilated, measuring 4.0 cm. Ascending aorta is normal in size, measuring 2.9 cm. PULMONIC VALVE: Normal thickness and mobility. No stenosis. PERICARDIUM: No evidence of pericardial effusion. IVC: Not well visualized. PLEURA: CONCLUSION: 1. Mild to moderate concentric left ventricular hypertrophy with normal systolic function. Estimated LVEF is 60 to 65%. 2. Normal right ventricular size and systolic function. 3. No significant valvular dysfunction. 4. Mildly dilated aortic root measuring 4.0 cm. Normal size ascending aorta. 5. Unable to assess right-sided pressures due to lack of measurable tricuspid regurgitation. Adult Echocardiography Procedure Report Left Ventricle LVEDD (3.7 - 5.6 cm): 4.45 cm LVESD (2.2 - 4.0 cm): 3.52 cm LVIVS thickness (0.6 - 1.2 cm): 1.98 cm LVPW thickness (0.5 - 1.0 cm): 1.02 cm LVOT Max Gradient: 1.95 mm[Hg], 2.24 mm[Hg] Peak Velocity (LVOT): 0.70 m/s, 0.75 m/s LVOT Diameter 2.57 cm Left Atrium LA Volume Index (2D A2C): 20.50 ml/m2 Left Atrium Systolic Dimension: 3.43 cm Mitral Valve MV E to A Ratio: 0.70 Mitral Valve A-Wave Peak Velocity: 0.81 m/s Mitral Valve E-Wave Peak Velocity: 0.56 m/s Right Ventricle Aorta AO Root Diam: 3.98 cm Ascending Ao Diam: 2.86 cm Aortic Valve AoV Area (Peak Joaquin): 5.27 cm2, 4.92 cm2 AoV Area (VTI): 5.74 cm2, 5.38 cm2 Peak Velocity(Antegrade Flow): 0.74 m/s Peak Gradient(Antegrade Flow): 2.16 mm[Hg] Mean Velocity(Antegrade Flow): 0.50 m/s Mean Gradient(Antegrade Flow): 1.15 mm[Hg] Velocity Time Integral: 15.49 cm Tricuspid Valve Pulmonic Valve Mean Gradient: 1.38 mm[Hg] Mean Velocity: 0.53 m/s Peak Velocity: 0.89 m/s, 0.89 m/s Peak Gradient: 3.20 mm[Hg], 3.13 mm[Hg] Right Atrium Right Atrium Systolic Pressure: 27.61 ml, 27.61 ml Dictated by: Saleem Schmidt M.D. on 11/09/2024 at 17:57 Approved by: Saleem Schmidt M.D. on 11/09/2024 at 18:02
--- OUTSIDE RECORDS SUMMARY | 2024-11-09 09:09 | XMS_ITS | CCD ---
Author Organization [facility] Care Team Providers Care Program Paraprofessional Name Role Phone Adilson Salazar Primary Care Provider [phone] OSCAR HARP Admitting Unavailable JAVIER POSADAS Consulting Unavailable OMER ZAMBRANO Attending Unavailable ADILSON SALAZAR Primary Care Unavailabl JAMILA Bliss Consulting Unavailable ADILSON SALAZAR Primary Care Physician [phone] MD Adilson Salazar Primary Care Provider MD Milvia Palomo Attending Provider MD Adilson Salazar Primary Care Provider [phone] MD Milvia Palomo Attending Provider MARIE, DR ADILSON Johnson Admitting Unavailable NADERER, DR ADILSON Johnson Attending Unavailable NADERER, DR ADILSON Johnson Primary Care Unavailable NADERER, DR ADILSON Johnson Consulting Unavailable NADEREQuinton, DR ADILSON Johnson Admitting Unavailable NADERER, DR ADILSON Johnson Attending Unavailable NADERER, DR ADILSON Johnson Primary Care Unavailable ZIEBKALPANA, DR SUELLEN Alcantara Consulting Unavailable NADERER, DR ADILSON Johnson Consulting Unavailable NILL ., DR ACEVEDO Admitting Unavailable NILL ., DR ACEVEDO Attending Unavailable NADEREQuinton, DR ADILSON Johnson Primary Care Unavailable NILL ., DR ACEVEDO Consulting Unavailable NILL ., DR ACEVEDO Admitting Unavailable NILL ., DR ACEVEDO Attending Unavailable NADERER, DR ADILSON Johnson Primary Care Unavailable ZIEBKALPANA, DR SULELEN Alcantara Consulting Unavailable NILL ., DR ACEVEDO Consulting Unavailable MILVIA PALOMO Admitting Unavailable DEWEY, MILVIA Powers Attending Unavailable NADEREQuinton, DR ADILSON [...] Unavailable FAWWAD, SHAIKH Sonam Consulting Unavailable Erwin, Giedwar Consulting Unavailable NILL ., DR ACEVEDO Admitting Unavailable NILL ., DR ACEVEDO Attending Unavailable NADERER, DR ADILSON Johnson Primary Care Unavailable NILL ., DR ACEVEDO Consulting Unavailable BRITT, ANSELMO GOLDMAN Consulting Unava ilable GEMBUS, ALANNAH Consulting Unavailable BAEZA, Daniel Alcantara Attending Unavailable Lue, Milvia M. Attending [...] Attending Unavailable Lue, Milvia M. Referring Unavailable NadereAdilson alcantara MD Primary Care Provider Adilson Salazar MD Primary Care Provider [phone] Adilson Salazar MD Unavailable Adilson Salazar Primary Care Unavailable Sonya, Norleena R Admitting Unavailable Sonya, Norleena R Attending Unavailable Lue, Milvia M Referring Unavailable NADERER, ADILSON Attending Unavailable NADERER, ADILSON Attending Unavailable NADERER, ADILSON Attending Unavailable NADERER, ADILSON Attending Unavailable NADERER, ADILSON Attending Unavailable NADERER, ADILSON Attending Unavailable CUCA AGUILAR Referring Unavailable JONATHAN GAN Referring Unavailable JONATHAN GAN Referring Unavailable KELSEY JUDD Attending Unavailable LINDAPHYLLIS Attending Unavailable HADZIAHMETOVICSILVANO Attending Unavaila ble ALGHOTHANI, MOHAMAD Attending Unavailable PHYLLIS ACOSTA Attending Unavailable VIVIAN BILLY Attending Unavailable PHYLLIS ACOSTA Referring Unavailable DASHAWN SAAB Referring Unavailable PUJA MONTES DE OCA Admitting Unavailable YEYO CASTILLO Attending Unavailable Allergies Allergy Classification Reported Allergen(s) Allergy Type Date of Onset Reaction(s) Facility (16 sources) Labetalol; 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: [labetalol] Drug Allergy 0 Unknown (origin) (qualifier value) [facility] (14 sources) Penicillin; 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: [penicillin] Drug Allergy 7 Unknown [facility] (20 sources) Penicillins; 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: [Penicillins] Allergy to substance 4 Rash [facility] (1 source) Labetalol Drug Allergy [facility] (1 source) Labetalol Drug Allergy 1 [facility] Repository Medications Current Medications Medication Drug Class(es) Dates Sig (Normalized) Sig (Original) acetaminophen 500 mg oral tablet (16 sources) take 2 tablets by mouth every [...] Status: Ordered apixaban 5 mg oral tablet (10 sources) Factor Xa Inhibitor Start: 05-12-2024 take [...] suppository 10 mg Blood Glucose Monitoring Suppl (Fondeadorauch Verio Flex System) w/Device kit (14 sources) Start: 10-26-2023 Blood Glucose Monitoring Suppl [...] hyperglycemia, with long-term current use of insulin (CMS/[facility]ER[facility]) 1 each in the morning and 1 [...] take 0.25 mg by mouth in the [facility] budesonide (Pulmicort) 0.25 MG/2ML nebulizer [...] mg / cholecalciferol 0.01 mg oral tablet (16 sources) Vitamin D Start: take 1 tablet [...] Status: Ordered carvedilol 6.25 mg oral tablet (10 sources) alpha-Adrenergic Anders, beta-Adrenergic Anders Start: 024 [...] 06/09/2019 Active furosemide 40 mg oral tablet (13 sources) Loop Diuretic Start: 05-02-2024 take 1 tablet by mouth once daily furosemide (Lasix) 40 MG tablet Indications: Heart failure with improved ejection fraction (HFimpEF) (CMS/[facility]ERLY [facility]) Take 1 tablet (40 mg) by mouth Daily 30 tablet 3 05/02/2024 Active glipiZIDE 10 mg oral tablet (20 sources) Sulfonylurea Start: 09-25-2024 take 1 tablet by mouth twice daily glipiZIDE (Glucotrol) 10 MG tablet Indications: Type 2 diabetes mellitus with hyperglycemia, unspecified whether longterm insulin use ([facility]) Take 1 tablet by mouth twice daily 180 tablet 09/25/2024 Active Start: 06-21-2024 take 1 tablet by marianne th twice daily glipiZIDE (Glucotrol) 10 MG tablet Indications: Type 2 diabetes mellitus with hyperglycemia, unspecified whether long term care social worker insulin use ([facility]) Take 1 tablet by mouth twice daily 180 tablet 06/21/2024 Active Start: 06-24-2021 take 1 tablet by marianne th twice daily glipiZIDE 10 mg Tab 10 [...] mononitrate 30 mg extended release oral tablet (6 sources) Nitrate Vasodilator take 1 tablet by [...] OF MAGNESIA) 400 MG/5ML suspension 30 mL magnesium oxide 400 mg oral tablet (3 sources) Start: take 1 tablet by mouth in the morning magnesium oxide (Mag-Ox) 400 mg tablet Take 400 mg by mouth in the morning and 400 mg before bedtime. 10/03/2024 Active melatonin 1 mg oral tablet (1 source) [...] tablet by mouth twice daily 60 tablet 10/08/2024 Active Start: 07-23-2024 take 1 tablet by marianne th twice daily metFORMIN XR (Glucophage-XR) 500 MG 24 hr tablet Indications: Type 2 diabetes mellitus with hyperglycemia, with long-term current use of insulin (CMS/HCC) Take 1 tablet by mouth twice daily 60 tablet 07/23/2024 Active Start: 06-20-2024 take 1 tablet by marianne th twice [...] hyperglycemia, with long-term current use of insulin (CMS/[facility]) Take 1 tablet by mouth twice daily [...] Daily, # 30 tab(s), Refills(s) 6, Pharmacy: [id number], 183, cm, 04/21/22 11:40:00 EDT, Height/Length Dosing, 110.3, kg, 04/21/22 11:40:00 EDT, Weight Dosing Start Date: 04/21/22 Status: Ordered montelukast 10 mg oral tablet (20 sources) Leukotriene Receptor Antagonist Start: 09-12-2024 take 1 tablet by mouth at bedtime montelukast (Singulair) 10 MG tablet Indications: Bilateral impacted cerumen TAKE 1 TABLET BY MOUTH AT BEDTIME 30 tablet 09/12/2024 Active Start: 09-20-2023 take 1 tablet by marianne th at bedtime montelukast (Singulair) 10 MG tablet [...] Start: 06-06-2019 ondansetron (ZOFRAN) injection 4 mg pantoprazole 40 mg delayed release oral tablet (3 sources) Proton Pump Inhibitor Start: 10-03-2024 take 1 tablet by mouth before mealtime pantoprazole (ProtoNix) 40 MG EC tablet Take 40 mg by mouth in the morning. Take before meals. Do not crush, chew, or split.. 10/03/2024 Active Potassium Chloride (1 source) Start: 06-07-2019 potassium chloride (KLOR-CON M) extended release tablet 40 mEq pravastatin sodium 40 mg oral tablet (1 source) HMG-CoA Reductase Inhibitor take 1 tablet by mouth once daily pravastatin (PRAVACHOL) 40 MG tablet Take 40 mg by mouth daily 0 Active relugolix (Orgovyx) 120 MG tablet (16 sources) take 1 tablet by mouth once daily relugolix (Orgovyx) 120 MG tablet Take by mouth Daily. Active take 1 tablet by mouth once jay y relugolix (Orgovyx) 120 MG tablet Take by mouth Daily. 0 Active rosuvastatin calcium 40 mg oral tablet (16 sources) HMG-CoA Reductase Inhibitor Start: 08-17-2023 take 1 tablet by mouth in the morning rosuvastatin (Crestor) 40 MG tablet Take 40 mg by mouth in the morning. 08/17/2023 Active 0.25 mg, 0.5 mg dose 1.5 ml semaglutide 1.34 mg/ml pen injector (13 sources) Start: 05-02-2024 semaglutide (Ozempic, 0.25 or 0.5 MG/DOSE,) 2 MG/1.5ML solution pen-injector Indications: Type 2 diabetes mellitus with hyperglycemia, with long-term current use of insulin (CMS/HCC) 0.25 mg SC weekly x 4 weeks, then 0.5 mg weekly 1 each 5 05/02/2024 Active Semglee, yfgn, 100 UNIT/ML pen (14 sources) Start: 08-06-2024 inject 40 [IU] by subcutaneous injection at bedtime Semglee, yfgn, 100 UNIT/ML pen Indications: Type 2 diabetes mellitus with hyperglycemia, with long-term current use of insulin (CMS/HCC) INJECT 40 UNITS SUBCUTANEOUSLY AT BEDTIME 15 mL 08/06/2024 Active Start: 06-28-2024 inject 40 [IU] by mcbride bcutaneous injection at bedtime Semglee, yfgn, 100 UNIT/ML pen Indications: Type 2 diabetes mellitus with hyperglycemia, with long-term current use of insulin (CMS/HCC) INJECT 40 UNITS SUBCUTANEOUSLY AT BEDTIME 15 mL 06/28/2024 Active Start: 05-18-2024 inject 40 [IU] by mcbride bcutaneous injection at bedtime Semglee, yfgn, 100 UNIT/ML pen Indications: Type 2 diabetes mellitus with hyperglycemia, with long-term current use of insulin (CMS/HCC) INJECT 40 UNITS SUBCUTANEOUSLY AT BEDTIME 15 mL 05/18/2024 Active Start: 04-02-2024 inject 40 [IU] by mcbride bcutaneous injection at bedtime Semglee, yfgn, 100 UNIT/ML pen Indications: Type 2 diabetes mellitus with hyperglycemia, with long-term current use of insulin ([facility]) INJECT 40 UNITS SUBCUTANEOUSLY AT BEDTIME 15 [...] oral capsule (20 sources) alpha-Adrenergic Anders Start: 09-25-2024 take 1 capsule by mouth once daily tamsulosin (Flomax) 0.4 MG 24 hr capsule Indications: BPH associated with nocturia Take 1 capsule by mouth once daily 90 capsule 09/25/2024 Active Start: 06-21-2024 take 1 capsule by mo uth once daily tamsulosin (Flomax) 0.4 MG 24 hr capsule Indications: BPH associated with nocturia Take 1 capsule by mouth once daily 90 capsule 06/21/2024 Active Start: 09-18-2023 take 1 capsule by mo uth every twenty-four hours in the morning tamsulosin [...] Onset: 06-05-2019 06-06-2019 Chronic Acute myocardial infarction (13 sources) Myocardial infarction; 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: [Non-ST elevation (NSTEMI) [...] exacerbation] 06-25-2021 Chronic Congestive heart failure; nonhypertensive (20 sources) Heart failure; 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: [Chronic diastolic (congestive) heart failure] Onset: 03-13-2024 05-02-2024 Chronic Coronary atherosclerosis and other heart disease (20 sources) Coronary arteriosclerosis; 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: [Atherosclerotic heart disease of belkofski coronary artery without angina pectoris] Onset: 03-28-2024 03-28-2024 Chronic Delirium, dementia, and amnestic and other cognitive disorders (19 sources) Vascular dementia without behavioral disturbance; 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: [...] 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: [Hyperlipidemia, unspecified] Onset: 07-29-2022 08-12-2020 Chronic Diverticulosis and diverticulitis (4 sources) Diverticulitis; 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: [Diverticulitis of intestine, part unspecified, without perforation or abscess without bleeding] Onset: 10-16-2024 10-16-2024 Chronic Esophageal disorders (20 sources) Gastroesophageal reflux disease; 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: [Gastro-esophageal reflux disease without esophagitis] Onset: 07-29-2022 06-11-2022 Chronic Essential hypertension (20 sources) Hypertensive disorder; 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: [Malignant hypertension] Onset: 01-26-2022 08-12-2020 Chronic Genitourinary symptoms and ill-defined conditions (12 sources) Urinary incontinence 08-12-2020 Chronic Genitourinary symptoms and ill-defined conditions [...] 06-11-2022 Chronic Other aftercare (1 source) Other long term care social worker (current) drug therapy; 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: [OTH INTERNAL MEDICINE NURSE PRACTITIONER CURRENT DRUG THERAPY] Onset: 11-18-2022 Episodic Other aftercare (1 source) salvage determiner (current) use of oral hypoglycemic drugs; 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: [FDC USE ORAL HYPOGLYCEMIC DX] Onset: 11-18-2022 Episodic Other aftercare (1 source) senior living (current) use of aspirin; 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: [FDC CURRENT USE OF ASPIRIN] Onset: 11-18-2022 Episodic Other and ill-defined cerebrovascular disease (1 source) Cerebrovascular disease, unspecified; 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: [CEREBROVASCULAR DISEASE UNSPECIFIED] Onset: 11-18-2022 Chronic Other and ill-defined cerebrovascular disease (16 sources) Cerebrovascular disease; 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: [Cerebrovascular disease, unspecified] [...] hemiparesis; 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: [Acute left hemiparesis] 06-06-2019 Chronic Residual codes; unclassified (20 sources) Obstructive sleep [...] Onset: 03-13-2024 Episodic Other aftercare (3 sources) senior living (current) use of insulin; 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: [FDC CURRENT USE OF INSULIN] Onset: 11-18-2022 Episodic Other circulatory disease (1 source) Personal history of transient ischemic attack (TIA), and cerebral infarction without residual deficits; 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: [PERS HX TIA AND CI NO RESID DEFICIT] Onset: 07-29-2022 Episodic Other ear and sense organ disorders (15 sources) Impacted cerumen of bilateral ears; 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: [...] caused by tuberculosis or sexually transmitted disease) (11 sources) Right lower zone pneumonia; 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: [Pneumonia, unspecified organism] Onset: 05-18-2024 Resolved: 07-02-2024 07-02-2024 Episodic Pulmonary heart disease (11 sources) Pulmonary embolism; 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: [Single subsegmental pulmonary embolism without acute cor pulmonale] Onset: 05-18-2024 05-18-2024 Episodic Screening and history of mental health [...] Value Interpretation Reference Range Facility Orders Onlyon 10-15-2024 Orders Only [id number] Eunice Marte 1955 M Date Provider Department Center 10/15/2024 Gris-BRADY GOLDBERG CARD [facility] Family History Problem Relation Age of Onset Heart disease Mother 58 Heart disease Maternal Grandmother Comments: heart trouble Heart disease Maternal Grandfather Comments: heart trouble Family Status - Relation Status Age at Mother Father Mother's Sister Mother's Brother Father's Sister Father's Brother Maternal Grandmother Maternal Grandfather Paternal Grandmother Paternal Grandfather Other Normal [facility] Follow-Upon 08-07-2024 Follow-Up [id number] Eunice Marte 1955 M Date Provider Department Center 08/07/2024 PHYLLIS DANGELO ONC DCC Family History Problem Relation Age of Onset Heart disease Mother 58 Heart disease Maternal Grandmother Comments: heart trouble Heart disease Maternal Grandfather Comments: heart trouble Family Status - Relation Status Age at Mother Father Mother's Sister Mother's Brother Father's Sister Father's Brother Maternal Grandmother Maternal Grandfather Paternal Grandmother Paternal Grandfather Other Level of Service:62609 ME OFFICE/OUTPATIENT ESTABLISHED LOW MDM 20 MIN Reason for Visit and Comments: Follow-up [[id number]] - Here for F/U of his prostate CA and to review PSA & Testosterone results. Normal [facility] LIPID PANELon 07-24-2024 CHOL/HDL 3.8 mg/dL Normal [facility] Comment on above: Performed By: #### L [id number] ####[facility] ([facility])[address] [place] [address] Cholesterol [Mass/Vol] 150 mg/dL Normal 120-200 [facility] Comment on above: Performed By: #### L [id number] ####[facility] ([facility])[address] [place] [address] Magnesium [Mass/Vol] 111 mg/dL Normal 40-149 [facility] Comment on above: Result Comment: TRIG LYCERIDE REFERENCE RANGE: 20 YEARS AND OLDER CARDIOVASCULAR RISK LESS THAN 150 mg/dL LOW RISK 150 TO 199 mg/dL BORDERLINE RISK 200 mg/dL AND GREATER HIGH RISK Performed By: #### L [id number] ####[facility] ([facility])[address] [place] [address] Magnesium [Mass/Vol] 88 mg/dL Normal 0-160 [facility] Comment on above: Performed By: #### L [id number] ####[facility] ([facility])[address] [place] [address] Magnesium [Mass/Vol] 40 mg/dL Normal 23-92 [facility] Comment on above: Performed By: #### L [id number] ####[facility] ([facility])[address] [place] [address] NON HDL CHOL. (LDL+VLDL) 110 Normal [facility] Comment on above: Performed By: #### L [id number] ####[facility] ([facility])[address] [place] [address] TOTAL VLDL-C 22 mg/dL Normal 0-40 [facility] Comment on above: Performed By: #### L [id number] ####[facility] ([facility])[address] [place] [address] Labon 07-24-2024 Lab [id number] Eunice Marte 1955 M Date Provider Department [place] 07/24/2024 Pending sale to [facility] RESOURCE DCC DRAW DCC Family History Problem Relation Age of Onset Heart disease Mother 58 Heart disease Maternal Grandmother Comments: heart trouble Heart disease Maternal Grandfather Comments: heart trouble Family Status - Relation Status Age at Mother Father Mother's Sister Mother's Brother Father's Sister Father's Brother Maternal Grandmother Maternal Grandfather Paternal Grandmother Paternal Grandfather Other Normal [facility] PSA, DIAGNOSTICon 07-24-2024 PROSTATE SPECIFIC AG (NG/ML) IN SER/PLAS 0.1 ng/mL Low 0.4-4 [facility] Comment on above: Order Comment: To be collected 07/2024 Performed By: #### L [id number] ####[facility] ([facility])[address] [place] [address] TESTOSTERONEon 07-24-2024 TESTOSTERONE (NG/DL) IN SER/PLAS 52 ng/dL Low 193-740 [facility] Comment on above: Order Comment: To be collected 07/2024 Result Comment: Test Performed by [facility] [address] [place] [address] - Released 07/25/2024 11:50 Performed By: #### L [id number] #### [facility] [address] [place] [address] Office Visiton 06-01-2024 Follow-up visit [id number] Eunice Marte 1955 M Date Provider Department Center 06/01/2024 3848-KELSEY JUDD [facility] Family History Problem Relation Age of Onset Heart disease Mother 58 Heart disease Maternal Grandmother Comments: heart trouble Heart disease Maternal Grandfather Comments: heart trouble Family Status - Relation Status Age at Mother Father Mother's Sister Mother's Brother Father's Sister Father's Brother Maternal Grandmother Maternal Grandfather Paternal Grandmother Paternal Grandfather Other Level of Service:81222 ME OFFICE/OUTPATIENT ESTABLISHED LOW MDM 20 MIN Normal [facility] Orders Onlyon 04-25-2024 Orders Only [id number] Eunice Marte 1955 M Date Provider Department Center 04/25/2024 1052-ROSEMARY LEVIN [facility] INT MED Comprehensiv Family History Problem Relation Age of Onset Heart disease Mother 58 Heart disease Maternal Grandmother Comments: heart trouble Heart disease Maternal Grandfather Comments: heart trouble Family Status - Relation Status Age at Mother Father Mother's Sister Mother's Brother Father's Sister Father's Brother Maternal Grandmother Maternal Grandfather Paternal Grandmother Paternal Grandfather Other Normal [facility] Documentationon 04-17-2024 Documentation [id number] Eunice Marte 1955 M Date Provider Department Center 04/17/2024 Mona7-ZELINA, REDDY None Family History Problem Relation Age of Onset Heart disease Mother 58 Heart disease Maternal Grandmother Comments: heart trouble Heart disease Maternal Grandfather Comments: heart trouble Family Status - Relation Status Age at Mother Father Mother's Sister Mother's Brother Father's Sister Father's Brother Maternal Grandmother Maternal Grandfather Paternal Grandmother Paternal Grandfather Other Reason for Visit and Comments: Specialty Phamracy Note: Repatha [Other] Normal [facility] Documentation [id number] [facility] 1955 M Date Provider Department Center 04/17/2024 [...] for Visit and Comments: [id number] [Other] Normal [facility] Orders Onlyon 04-16-2024 Orders Only [id number] [facility] 1955 Date Provider Department Center 04/16/2024 VIVIAN AVITIA H[facility] CARD [facility] Family History Problem Relation Age of Onset Heart disease Mother 58 Heart disease Maternal Grandmother Comments: heart trouble Heart disease Maternal Grandfather Comments: heart trouble Family Status - Relation Status Age at Mother Father Mother's Sister Mother's Brother Father's Sister Father's Brother Maternal Grandmother Maternal Grandfather Paternal Grandmother Paternal Grandfather Other Normal [facility] Follow-Upon 04-10-2024 Follow-Up [id number] [facility] 1955 Date Provider Department Center 04/10/2024 VIVIAN AVITIA HVC CARD [facility] Family History Problem Relation Age of Onset Heart disease Mother 58 Heart disease Maternal Grandmother Comments: heart trouble Heart disease Maternal Grandfather Comments: heart trouble Family Status - Relation Status Age at Mother Father Mother's Sister Mother's Brother Father's Sister Father's Brother Maternal Grandmother Maternal Grandfather Paternal Grandmother Paternal Grandfather Other Level of Service:98216 ME OFFICE/OUTPATIENT ESTABLISHED MOD MDM 30 MIN Normal [facility] 36on 03-16-2024 36 Post Discharge Call Good morning, I am Rani Tovar RN a lead nurse from [facility]. I am calling you to follow [...] Patient Name Eunice Marte Date 03/16/24 Normal [facility] Telephoneon 03-16-2024 Telephone [id number] Eunice Marte 1955 M Date Provider Department Center 03/16/2024 RANI CHAN MALICK IN [facility] Family History Problem Relation Age of Onset Heart disease Mother 58 Heart disease Maternal Grandmother Comments: heart trouble Heart disease Maternal Grandfather Comments: heart trouble Family Status - Relation Status Age at Mother Father Mother's Sister Mother's Brother Father's Sister Father's Brother Maternal Grandmother Maternal Grandfather Paternal Grandmother Paternal Grandfather Other Normal [facility] 3003-14-2024 30 Daily Case Managemen t Update Multidisciplinary [...] PT Recommendations: OT Recommendations: New Consults: Normal [facility] APOLIPOPROTEIN B-100on 03-14 Magnesium [Mass/Vol] 85 mg/dL Normal 66-133 [facility] Comment on above: Result Comment: [...] atherosclerotic cardiovascular disease in adults. Performed By: [employer] [address] [place] [address] Hospitality Job Titles: Sylvester Damian MD, PhD CLIA Number: [id number] Performed By: #### L [id number] ####[facility] ([facility])[address] [place] [id number] CBCon 03-14-2024 Erythrocyte distribution width (RBC) [Ratio] 14.5 % Normal 11.5-15.0 [facility] Comment on above: Performed By: #### L [id number] #### [facility] ([facility]) [address] [place] [address] ERYTHROCYTE MEAN CORPUSCULAR HEMOGLOBIN CONCENTRATION (G/DL) BY AUTOMATED 32.8 g/dL Normal 32.0-35.0 [facility] Comment on above: Performed By: #### L [id number] #### [facility] ([facility]) [address] [place] [address] Hematocrit (Bld) [Volume fraction] 35.4 % Low 39.0-55.0 [facility] Comment on above: Performed By: #### L [id number] #### [facility] ([facility]) [address] [place] [address] Hemoglobin (Bld) [Mass/Vol] 11.6 g/dL Low 13.0-17.0 [facility] Comment on above: Performed By: #### L [id number] #### [facility] ([facility]) [address] [address] MCH (RBC) [Entitic mass] 28.5 pg Normal 27.0-33.0 [facility] Comment on above: Performed By: #### L [id number] #### [facility] ([facility]) [address] [place] [address] MCV (RBC) [Entitic vol] 87.0 fL Normal 82.0-98.0 [facility] Comment on above: Performed By: #### L [id number] #### [facility] ([facility]) [address] [place] [address] PLATELETS (10*3/UL) IN BLOOD AUTOMATED COUNT 164 10*3/uL Normal 150-400 [facility] Comment on above: Performed By: #### L [id number] #### [facility] ([facility]) [address] [place] [address] RBC (Bld) [#/Vol] 4.07 10*6/uL Low 4.20-5.70 [facility] Comment on above: Performed By: #### L [id number] #### [facility] ([facility]) [address] [place] [address] WBC (Bld) [#/Vol] 5.46 10*3/uL Normal 4.00-10.60 [facility] Comment on above: Performed By: #### L [id number] #### [facility] ([facility]) [address] [place] [address] HEMOGLOBIN A1Con 03-14-2024 Glucose [Mass/Vol] 183 mg/dL Normal [facility] Comment on above: Performed By: #### L [id number] #### [facility] ([facility]) [address] [place] [address] HbA1c (Bld) [Mass fraction] 8.0 % High 4.0-6.0 [facility] Comment on above: Performed By: #### L [id number] #### [facility] ([facility]) [address] [place] [address] HPon 03-14-2024 HP H&P reviewed. The patient was examined and there are no changes to the H&P. Patient is a 68 yo male patient with a PMH of CVA, CKD presenting for unstable angina. Lexiscan Myocardial Perfusion Stress Test is positive for reversible filling defect at the anterior and apical sections. Patient will undergo diagnostic CORS. Normal [facility] LIPID PANELon 03-14-2024 CHOL/HDL 3.4 mg/dL Normal [facility] Comment on above: Performed By: #### L [id number] #### [facility] ([facility]) [address] [place] [address] Cholesterol [Mass/Vol] 126 mg/dL Normal 120-200 [facility] Comment on above: Performed By: #### L [id number] #### [facility] ([facility]) [address] [place] [address] Magnesium [Mass/Vol] 124 mg/dL Normal 40-149 [facility] Comment on above: Result Comment: TRIG LYCERIDE REFERENCE RANGE: 20 YEARS AND OLDER CARDIOVASCULAR RISK LESS THAN 150 mg/dL LOW RISK 150 TO 199 mg/dL BORDERLINE RISK 200 mg/dL AND GREATER HIGH RISK Performed By: #### L [id number] #### [facility] ([facility]) [address] [place] [address] Magnesium [Mass/Vol] 64 mg/dL Normal 0-160 [facility] Comment on above: Performed By: #### L [id number] #### [facility] ([facility]) [address] [place] [address] Magnesium [Mass/Vol] 37 mg/dL Normal 23-92 [facility] Comment on above: Performed By: #### L [id number] #### [facility] ([facility]) [address] [place] [address] NON HDL CHOL. (LDL+VLDL) 89 Normal [facility] Comment on above: Performed By: #### L [id number] #### [facility] ([facility]) [address] [place] [address] TOTAL VLDL-C 25 mg/dL Normal 0-40 [facility] Comment on above: Performed By: #### L [id number] #### [facility] ([facility]) [address] [place] [address] LIPOPROTEIN A (LPA)on 2023 Magnesium [Mass/Vol] 198 mg/dL High <=29 [facility] Comment on above: Result Comment: Perf ormed By: [employer] [address] [place] [address] Hospitality Job Titles: Sylvester Damian MD, PhD CLIA Number: [id number] Performed By: #### L [id number] #### [facility] ([facility]) [address] [place] [address] POCT GLUCOSE METER UNSOLICIT ED RESULTSon 03-14-2024 Glucose [Mass/Vol] 149 mg/dL High 70-105 [facility] Comment on above: Order Comment: Waive d Testing in the ED is performed under the ED CLIA certificate #[id number]. Result Comment: [email or web address] Performed By: #### L [id number] #### [facility] ([facility]) [address] [place] [address] Glucose [Mass/Vol] 144 mg/dL High 70-105 [facility] Comment on above: Order Comment: Waive d Testing in the ED is performed under the ED CLIA certificate #[id number]. Result Comment: [email or web address] Performed By: #### L [id number] #### [facility] ([facility]) [address] [place] [address] 30on 03-13-2024 30 The patient is Moderately [...] injury: Assess patient frequently for physical needs [place] fall precautions as indicated by assessment Instruct [...] and prevent overall improvement and discharge Normal [facility] 30 The patient is Moderately Stable - Low risk of patient condition declining or worsening The patient's goals for the shift include no chest pain The clinical goals for the shift include VSS, stress test Over the shift, the patient did make progress toward the following goals. Stress test positive, heart cath ordered for tomorrow. Normal [facility] 30 Daily Case Managemen t Update [...] PT Recommendations: OT Recommendations: New Consults: Normal [facility] 30 The patient is Moderately Stable - Low risk of patient condition declining or worsening The patient's goals for the shift include no chest pain The clinical goals for the shift include stable vitals Over the shift, the patient did make progress toward the following goals. Barriers to progression include active acute event with chest pain prior to pt transfer to [facility]. Recommendations to address these barriers include assess pain and encourage pt to express when having pain. Normal [facility] APTTon 03-13-2024 ACTIVATED PARTIAL THROMBOPLASTIN TIME IN PPP BY COAGULATION ASSAY 61.0 Seconds High 25.0-35.0 [facility] Comment on above: Order Comment: Basel ine aPTT before initiating heparin infusion. Result Comment: Clin ical significance of the APTT is questionable in the presence of heparin. Performed By: #### L [id number] #### [facility] ([facility]) [address] [place] [address] B-TYPE NATRIURETIC PEPTIDEon 03-13-2024 Natriuretic peptide B (Bld) [Mass/Vol] 65 pg/mL Normal 0-100 [facility] Comment on above: Performed By: #### L [id number] #### [facility] ([facility]) [address] [place] [address] CBCon 03-13-2024 Erythrocyte distribution width (RBC) [Ratio] 14.6 % Normal 11.5-15.0 [facility] Comment on above: Performed By: #### L [id number] ####[facility] ([facility])[address] [place] [address] ERYTHROCYTE MEAN CORPUSCULAR HEMOGLOBIN CONCENTRATION (G/DL) BY AUTOMATED 32.2 g/dL Normal 32.0-35.0 [facility] Comment on above: Performed By: #### L [id number] ####[facility] ([facility])[address] [place] [address] Hematocrit (Bld) [Volume fraction] 36.9 % Low 39.0-55.0 [facility] Comment on above: Performed By: #### L [id number] ####[facility] ([facility])[address] [place] [address] Hemoglobin (Bld) [Mass/Vol] 11.9 g/dL Low 13.0-17.0 [facility] Comment on above: Performed By: #### L [id number] ####[facility] ([facility])[address] [place] [address] MCH (RBC) [Entitic mass] 28.7 pg Normal 27.0-33.0 [facility] Comment on above: Performed By: #### L [id number] ####[facility] ([facility])[address] [place] [address] MCV (RBC) [Entitic vol] 89.1 fL Normal 82.0-98.0 [facility] Comment on above: Performed By: #### L [id number] ####[facility] ([facility])[address] [place] [address] PLATELETS (10*3/UL) IN BLOOD AUTOMATED COUNT 159 10*3/uL Normal 150-400 [facility] Comment on above: Performed By: #### L [id number] ####[facility] ([facility])[address] [place] [address] RBC (Bld) [#/Vol] 4.14 10*6/uL Low 4.20-5.70 [facility] Comment on above: Performed By: #### L [id number] ####[facility] ([facility])[address] [place] [address] WBC (Bld) [#/Vol] 5.62 10*3/uL Normal 4.00-10.60 [facility] Comment on above: Performed By: #### L [id number] ####[facility] ([facility])[address] [place] [address] COMPREHENSIVE METABOLIC PANE Mack 03-13-2024 Albumin [Mass/Vol] 3.8 g/dL Normal 3.5-5.7 [facility] Comment on above: Performed By: #### L [id number] #### [facility] ([facility]) [address] [place] [address] ALP [Catalytic activity/Vol] 68 U/L Normal 34-104 [facility] Comment on above: Performed By: #### L [id number] #### [facility] ([facility]) [address] [place] [address] ALT [Catalytic activity/Vol] 33 U/L Normal 7-52 [facility] Comment on above: Performed By: #### L [id number] #### [facility] ([facility]) [address] [place] [address] Anion gap [Moles/Vol] 11 mmol/L Normal 7-20 [facility] Comment on above: Performed By: #### L [id number] #### [facility] ([facility]) [address] [place] [address] AST [Catalytic activity/Vol] 27 U/L Normal 13-39 [facility] Comment on above: Performed By: #### L [id number] #### [facility] ([facility]) [address] [place] [address] Bilirubin [Mass/Vol] 0.5 mg/dL Normal 0.3-1.0 [facility] Comment on above: Performed By: #### L [id number] #### [facility] ([facility]) [address] [place] [address] Calcium [Mass/Vol] 8.9 mg/dL Normal 8.6-10.3 [facility] Comment on above: Performed By: #### L [id number] #### [facility] ([facility]) [address] [place] [address] Chloride [Moles/Vol] 102 mmol/L Normal 98-107 [facility] Comment on above: Performed By: #### L [id number] #### [facility] ([facility]) [address] [place] [address] CO2 [Moles/Vol] 30 mmol/L Normal 21-31 [facility] Comment on above: Performed By: #### L [id number] #### [facility] ([facility]) [address] [place] [address] Creatinine [Mass/Vol] 0.86 mg/dL Normal 0.70-1.30 [facility] Comment on above: Performed By: #### L [id number] #### [facility] ([facility]) [address] [place] [address] GLOMERULAR FILTRATION RATE ML/MIN/1.73 SQ M.PREDICTED 94.3 mL/min/1.73m*2 Normal >60.0 [facility] Comment on above: Result Comment: The [facility]???s estimated glomerular filtration rate (eGFR) will [...] individuals. Performed By: #### L [id number] #### [facility] ([facility]) [address] [place] [address] Glucose [Mass/Vol] 144 mg/dL High 70-100 [facility] Comment on above: Performed By: #### L [id number] #### [facility] ([facility]) [address] [place] [address] Potassium [Moles/Vol] 3.5 mmol/L Normal 3.5-5.1 [facility] Comment on above: Performed By: #### L [id number] #### [facility] ([facility]) [address] [place] [address] Protein [Mass/Vol] 6.5 g/dL Normal 6.0-8.3 [facility] Comment on above: Performed By: #### L [id number] #### [facility] ([facility]) [address] [place] [address] Sodium [Moles/Vol] 139 mmol/L Normal 136-145 [facility] Comment on above: Performed By: #### L [id number] #### [facility] ([facility]) [address] [place] [address] Urea nitrogen [Mass/Vol] 17 mg/dL Normal 7-25 [facility] Comment on above: Performed By: #### L [id number] #### [facility] ([facility]) [address] [place] [address] UREA NITROGEN/CREATININE (MASS RATIO) IN SER/PLAS 19.8 Normal [facility] Comment on above: Performed By: #### L [id number] #### [facility] ([facility]) [address] [place] [address] CONSULTon 03-13-2024 CONSULT - Attestation signed by [...] risk factors including hypertension and hyperlipidemia. In [facility] he hide high elevated high-sensitivity troponin [...] the form of amlodipine. Arnoldo Killian MD, [facility] Cardiology Consult Note Reason for Consult: positive stress test HPI: Eunice Marte is a 68 y.o. male with history of diabetes mellitus, hypertension was referred to our hospital for concerns for NSTEMI the patient was seen in [place] with episodes of chest pain that got [...] disease), CKD (chronic kidney disease), stage III ([facility]), Depression, DM (diabetes mellitus) ([facility]) (2007), Erectile dysfunction, GERD (gastroesophageal reflux disease), H/O deep venous thrombosis, HLD (hyperlipidemia), HTN (hypertension), Myocardial infarction ([facility]) (2021), ALLISON on CPAP, Prostate cancer ([facility]), Status post placement of implantable loop recorder, and Stroke ([facility]) (04/2015). Surgical History He has a past [...] XR (Gl (more content not included)... Normal [facility] FERRITINon 03-13-2024 FERRITIN (NG/ML) IN SER/PLAS 281.0 ng/mL Normal 24.0-336.0 [facility] Comment on above: Performed By: #### L [id number] #### [facility] ([facility]) [address] [place] [address] FOLATEon 03-13-2024 FOLATE (NG/ML) IN SER/PLAS 9.66 ng/mL Normal 6.6-1000 [facility] Comment on above: Performed By: #### L [id number] ####[facility] ([facility])[address] [place] [address] HPon 03-13-2024 HP - Attestation signed by [...] risk factors including hypertension and hyperlipidemia. In [facility] he hide high elevated high-sensitivity troponin [...] the form of amlodipine. Arnoldo Killian MD, [facility] Cardiology Consult Note Reason for Consult: positive stress test HPI: Eunice Marte is a 68 y.o. male with history of diabetes mellitus, hypertension was referred to our hospital for concerns for NSTEMI the patient was seen in [place] with episodes of chest pain that got [...] disease), CKD (chronic kidney disease), stage III ([facility]), Depression, DM (diabetes mellitus) ([facility]) (2007), Erectile dysfunction, GERD (gastroesophageal reflux disease), H/O deep venous thrombosis, HLD (hyperlipidemia), HTN (hypertension), Myocardial infarction ([facility]) (2021), ALLISON on CPAP, Prostate cancer ([facility]), Status post placement of implantable loop recorder, and Stroke ([facility]) (04/2015). Surgical History He has a past [...] XR (Gl (more content not included)... Normal [facility] IRON AND TIBCon 03-13-2024 IRON (UG/DL) IN SER/PLAS 95 ug/dL Normal 50-212 [facility] Comment on above: Performed By: #### L [id number] #### [facility] ([facility]) [address] [place] [address] IRON BINDING CAPACITY (UG/DL) IN SER/PLAS 271 ug/dL Normal 250-450 [facility] Comment on above: Performed By: #### L [id number] #### [facility] ([facility]) [address] [place] [address] IRON BINDING CAPACITY.UNSATURATED (UG/DL) IN SER/PLAS 176.0 ug/dL Normal 155.0-355.0 [facility] Comment on above: Performed By: #### L [id number] #### [facility] ([facility]) [address] [place] [address] IRON SATURATION (%) IN SER/PLAS 35 % Normal 20-50 [facility] Comment on above: Performed By: #### L [id number] #### [facility] ([facility]) [address] [place] [address] LACTIC ACID WITH 4 HOUR REFL EXon 03-13-2024 LACTATE (MMOL/L) IN SER/PLAS 1.0 mmol/L Normal 0.5-2.2 [facility] Comment on above: Performed By: #### L [id number] #### [facility] ([facility]) [address] [place] [address] MAGNESIUMon 03-13-2024 Magnesium [Mass/Vol] 2.0 mg/dL Normal 1.9-2.7 [facility] Comment on above: Performed By: #### L [id number] ####[facility] ([facility])[address] [place] [address] PHOSPHORUSon 03-13-2024 Magnesium [Mass/Vol] 3.6 mg/dL Normal 2.5-5.0 [facility] Comment on above: Performed By: #### L [id number] ####[facility] ([facility])[address] [place] [address] PLATELET COUNTon 03-13-2024 PLATELETS (10*3/UL) IN BLOOD AUTOMATED COUNT 171 10*3/uL Normal 150-400 [facility] Comment on above: Performed By: #### L [id number] ####[facility] ([facility])[address] [place] [address] POCT GLUCOSE METER UNSOLICIT ED RESULTSon 03-13-2024 Glucose [Mass/Vol] 196 mg/dL High 70-105 [facility] Comment on above: Order Comment: Waive d Testing in the ED is performed under the ED CLIA certificate #[id number]. Result Comment: [email or web address] Performed By: #### L [id number] ####[facility] ([facility])[address] [place] [address] Glucose [Mass/Vol] 213 mg/dL High 70-105 [facility] Comment on above: Order Comment: Waive d Testing in the ED is performed under the ED CLIA certificate #[id number]. Result Comment: [email or web address] Performed By: #### L [id number] #### [facility] ([facility]) [address] [place] [address] Prep for Procedureon 024 Prep [facility] Procedure [id number] [facility] 1955 [facility] Date Provider Department Center 03/13/2024 [facility] IN [facility] Family History Problem Relation Age of Onset Heart disease Mother 58 Heart disease Maternal Grandmother Comments: heart trouble Heart disease Maternal Grandfather Comments: heart trouble Family Status - Relation Status Age at Mother Father Mother's Sister Mother's Brother Father's Sister Father's Brother Maternal Grandmother Maternal Grandfather Paternal Grandmother Paternal Grandfather Other Normal [facility] TROPONIN Ion 03-13-2024 Troponin I.cardiac [Mass/Vol] 0.03 ng/mL Normal 0.00-0.04 [facility] Comment on above: Performed By: #### L [id number] ####[facility] ([facility])[address] [place] [address] Troponin I.cardiac [Mass/Vol] 0.04 ng/mL Normal 0.00-0.04 [facility] Comment on above: Performed By: #### L [id number] #### [facility] ([facility]) [address] [place] [address] Troponin I.cardiac [Mass/Vol] 0.03 ng/mL Normal 0.00-0.04 [facility] Comment on above: Performed By: #### L [id number] ####[facility] ([facility])[address] [place] [address] VITAMIN B12on 03-13-2024 Cobalamin (Vitamin B12) [Mass/Vol] 313 pg/mL Normal 180-914 [facility] Comment on above: Result Comment: REFE RENCE RANGES: 180-914 pg/mL Normal 145-179 pg/mL Indeterminate <145 pg/mL Deficient Performed By: #### L [id number] #### [facility] ([facility]) [address] [place] [address] 36on 02-14-2024 36 Prescription approve d 02/13/2024 through mychart request. Lilia Gonzalez MA Normal [facility] Follow-Upon 02-14-2024 [facility] [id number] [facility] 1955 M Date Provider Department Center 02/14/2024 [facility] ONC DCC Family History Problem Relation Age of Onset Heart disease Mother 58 Heart disease Maternal Grandmother Comments: heart trouble Heart disease Maternal Grandfather Comments: heart trouble Family Status - Relation Status Age at Mother Father Mother's Sister Mother's Brother Father's Sister Father's Brother Maternal Grandmother Maternal Grandfather Paternal Grandmother Paternal Grandfather Other Level of Service:94489 ME OFFICE/OUTPATIENT ESTABLISHED LOW MDM 20 MIN Reason for Visit and Comments: Follow-up [098823] - Here for F/U of his prostate CA and to review PSA results. Normal [facility] Labon 02-06-2024 Lab [id number] Eunice Marte 1955 M Date Provider Department Center 02/06/2024 2243-[facility] RESOURCE DCC DRAW DCC Family History Problem Relation Age of Onset Heart disease Mother 58 Heart disease Maternal Grandmother Comments: heart trouble Heart disease Maternal Grandfather Comments: heart trouble Family Status - Relation Status Age at Mother Father Mother's Sister Mother's Brother Father's Sister Father's Brother Maternal Grandmother Maternal Grandfather Paternal Grandmother Paternal Grandfather Other Normal [facility] PSA, DIAGNOSTICon 02-06-2024 PROSTATE SPECIFIC AG (NG/ML) IN SER/PLAS <0.1 Low 0.4-4 [facility] Comment on above: Order Comment: To be collected in 01/2024 Performed By: #### L [id number] #### [facility] ([facility]) [address] [place] [address] TESTOSTERONEon 02-06-2024 TESTOSTERONE (NG/DL) IN SER/PLAS 11 ng/dL Low 193-740 [facility] Comment on above: Order Comment: To be collected in 01/2024 Result Comment: Test Performed by [employer] [address] [place] [address] - Released 02/06/2024 22:51 Performed By: #### L [id number] ####[employer] [id number] [place] [address] MLR HEMOGLOBIN A1Con 024 Glucose [Mass/Vol] 189 mg/dL [facility] HbA1c (Bld) [Mass fraction] 8.2 % High 4.5 - 6.2 % [facility] Comment on above: ADA RECOMMENDED LIMI T 4.0 - 6.0 ADA THERAPEUTIC TARGET < 7.0 ACTION SUGGESTED > 7.0 Interpretation and review of laboratory results Abnormal [facility] Pathology Reporton 3 Pathology Report [id number]# [id number]:127 Normal [facility] Urology Office/Clinic Noteon 02-03-2023 Urology Office/Clinic Note Chief Complaint Pt is here for 3 month f/u HPI Staff Eunice is a 67 y.o. male here for 3 month follow up. Previous DX: Prostate Cancer, BPH, Nocturia, ED. *Oxybutynin 5mg QD & Myrbetriq 50mg QD therapy. Pt referred to to [place] for Retzius sparing prostatectomy. Pt saw Dr [...] - 8.2 & 5.0% Prior TRUS/Bx by [facility] 08/2020 was negative MRI prostate 05/26/22 - PIRADS 4 lesion mid gland peripheral zone, 8 x 8 mm. T1/T2 hypointense lesion is seen involving the right ischial tuberosity. Prostate vol 48 mL. S/p MRI fusion Transperineal Prostate Bx 07/06/22 - Path: prostate adenocarcinoma Grade group 2 in +3/ cores, 81% involved (including MARÍA ELENA LT [...] Unsure why seen by 2 Urologists at [facility], notes were reviewed Urology consult Dr. Valdemar Ramos [facility] 11/30/22. Urology oncology consult Dr. Phyllis Acosta [facility] 12/07/22 - plans for RALP pending [...] prostatectomy/IPP infectio (more content not included)... Normal [facility] Comment on above: Result Comment: Elec tronically [...] bladder) ALLISON (more content not included)... Normal [facility] Patient Educationon 02-03-20 Patient Education [...] under a microscope. This is called the Gardiner score and the total score can range from 6?10, indicating how likely it is that the cancer will spread (metastasize) to other parts of the body. The higher the score, the greater the likelihood that the cancer will spread. ? Gilbert 6 or lower: This indicates that the cancer cells look similar to normal prostate cells (well differentiated). ? Gardiner 7: This indicates that the cancer cells look somewhat similar to normal prostate cells (moderately differentiated). ? Gardiner 8, 9, or 10: This indicates that [...] Like external be (more content not included)... [facility] Provider Letteron 02-02-2023 Provider Letter February 02, 2023 EUNICE MARTE [address] [place] [id number] : 1955 To Whom It May Concern, Please excuse above patient from work. Date of Appointments: From: 02/02/2023 To: _ May Return to Work On:02/03/2023 Restrictions: none Comments: Shayy Marte is with patient for all appointments, any question, please call our office Sincerely, [facility] [address], [place] [address] [facility] Screenson 02-02-2023 Screens [id number]# 1.00CD:127 Normal [facility] Screens [id number]# 1.00CD:127 Normal [facility] Consultation Noteon 02-02-20 Consultation Note [id number]#1 .00CD:127 Normal [facility] Consultation Noteon 12-09-19 Consultation Note [id number]#1 .00CD:127 Normal [facility] Ambulatory Visit Summaryon 0 11-03-2022 Ambulatory Visit Summary EUNICE MARTE :1955 Visit Date:11/03/2022 Ambulatory Visit Instructions Your Diagnosis Prostate cancer Enlarged prostate with urinary obstruction Nocturia Erectile dysfunction Tests Performed Urnls Dip Stick Auto w/o Microscopy POC 41483 Your Care Team Attending Physician - Dewey [...] Milvia Palomo MD Where: [facility] [place] [facility] Patient Educationon 11-04-19 Patient Education [...] Are older than age 65. ? Are -Turkmen. ? Are obese. ? Have a family [...] Follow these instructions at home: ? Take nnzf-fxf-vqfmrul and prescription medicines only as told by [...] cancer specialis (more content not included)... Normal [facility] Urology Office/Clinic Noteon 11-03-2022 Urology [...] - 8.2 & 5.0% -Prior TRUS/Bx by [facility] 08/2020 was negative -MRI prostate 05/26/22 - [...] local or distant metastatic disease. -Decipher done 01/26/23 shows high genomic risk 0.73. Risk of mets with RT or RP: 5 yr - 4.3%. 10 yr - 10.8%. Risk of Prostate Ca Mortality with RT or RP 15 yr - 13.5%. -Seen by Dr. Hassan 09/22/22 - RT x 4 wks recommended if proceeding Was referred to [facility] for retzius sparing prostatectomy consult, has yet to be contacted. Pt still wants to procedure with surgical intervention over radiation. Follow up 2-3 mos or sooner if needed. Pt understands and agrees with plan. -contact [facility], will call pt with update. Pt to call our office if they do not hear from [facility] in 2-3 wks 2. Enlarged prostate [...] URL, URO (more content not included)... Normal [facility] Comment on above: Result Comment: Elec tronically Signed By: Milvia Palomo MD\.br\Date and Time Signed: 11/03/22 08:40 EDT\.br\Electronically Co-Signed By: Gifty Mann\.br\Date and Time Co-Signed: 11/03/22 08:35 EDT Lab Reportson 10-26-2022 Lab Reports [id number]#1 .00CD:127 Normal [facility] PSA, FREE AND TOTAL RATIOon 10-26-2022 % Free PSA 5.0 % Normal [facility] Comment on above: Result Comment: [...] Performed By: #### P TT, PT #### [facility] [address] [place] [address] Dr. Marcell Luque Prostate specific Ag [Mass/Vol] 8.2 ng/mL Critically high 0.0-4.0 [facility] Comment on above: Result Comment: Anamika GILLILANDIA methodology. . According to the [employer], Serum PSA should decrease and [...] Performed By: #### P TT, PT #### [facility] [address] [address] [address] Marcell Luque PSA, Free 0.41 ng/mL Normal N/A [facility] Comment on above: Result Comment: Anamika robb ECLIA methodology. Performed By: #### P TT, PT #### [facility] [address] [address] [address] Marcell Luque Auth for Release of Medical Recordson 10-25-2022 Auth for Release of Medical Records [id number]#1 .00CD:127 Normal [facility] Screenson 10-11-2022 Screens [id number] #1.00CD:127 Normal [facility] Screens [id number]#1 .00CD:127 Normal [facility] Ambulatory Visit Summaryon 0 10-06-2022 Ambulatory Visit Summary EUNICE MARTE :1955 Visit Date:10/06/2022 Ambulatory Visit Instructions Your Diagnosis Prostate cancer BPH with urinary obstruction Nocturia Erectile dysfunction Tests Performed Urnls Dip Stick Auto w/o Microscopy POC 24534 Your Care Team Attending Physician - Dewey [...] Milvia Palomo MD Where: [facility] [place] Normal [facility] Patient Educationon 10-06-19 Patient Education Obstetrics and [...] 07/25/2013 Document Revised: 03/28/2019 Document Reviewed: 03/28/2019 [employer] Patient Education ? 2020 [employer]. Oncology Brachytherapy for Prostate Cancer Brachytherapy for [...] including vitamins, herbs, eye drops, creams, and pvsc-mcs-crkabbk medicines. ? Any problems you or family [...] drinks that c (more content not included)... [facility] Provider Letteron 10-06-2022 Provider Letter October 06, 2022 EUNICE MARTE [address] [place] [address] EUNICE MARTE 1955 To Whom It May Concern, Please excuse above patient from work. Date of Appointment: From: 10/06/2022 To: May Return to Work On:10/06/2022 Restrictions: Comments: Any questions, please call our office. Sincerely, [facility] [address], [place] [address] [facility] Urology Office/Clinic Noteon 10-06-2022 Urology Office/Clinic [...] Hx IPP > 10 yrs ago in [place]. No prior abd surgeries. Hx L5 fusion, [...] Gifty Dean (more content not included)... Normal [facility] Comment on above: Result Comment: Elec tronically Signed By: Dewey COTTO, Milvia Lucia\.br\Date and Time Signed: 10/06/22 08:48 EST\.br\Electronically Co-Signed By: Gifty Mann\.br\Date and Time Co-Signed: 10/06/22 08:37 EST [facility] Report[facility] 09-27-2022 Lab Reports [id number]#1 .00CD:127 Normal [facility] Reference Lab Reporton 09-27 Reference Lab Report [id number]#1 .00CD:127 Normal [facility] Consultation Noteon 09-24-19 Consultation Note [id number]#1 .00CD:127 Normal [facility] RAD - Pet Scan Reporton RAD - Pet Scan Report [id number]#1 .00CD:127 Normal [facility] Formson 09-10-2022 Forms [id number]#1 .00CD:127 Normal [facility] RAD - CT Reporton 08-20-2022 RAD - CT Report [id number]#1 .00CD:127 Normal [facility] Lab Reportson 08-09-2022 Lab Reports [id number]#1 .00CD:127 Normal [facility] CREATININEon 08-06-2022 Creatinine [Mass/Vol] 0.99 mg/dL Normal 0.70-1.30 [facility] Comment on above: Performed By: #### C MATI #### [facility] [address] [place], [place] [address] Dr. Marcell Luque EGFR-AF COOK ISLANDER >60 Normal >=60 [facility] Comment on above: Performed By: #### C MATI #### [facility] [address] [place], [place] [address] Dr. Marcell Luque EGFR-NON AF [place] ISLANDER >60 Normal >=60 [facility] Comment on above: Performed By: #### C MATI #### [facility] [address] [place], [place] [address] Dr. Marcell Luque CT ABD/PELV W CONon [...] by: SUELLEN MAYO Date: 2022-08-06 16:00 Normal [facility] Physician Orderon 08-05-2022 Physician Order [id number]#1 .00CD:127 Normal [facility] Screenson 08-05-2022 Screens [id number]#1 .00CD:127 Normal [facility] Screens [id number]#1 .00CD:127 Normal [facility] Patient Educationon 08-04-20 Patient Education Oncology Brachytherapy [...] including vitamins, herbs, eye drops, creams, and eqfk-chx-rdlujtx medicines. ? Any problems you or family [...] You w (more content not included)... Normal [facility] Provider Letteron 08-04-2022 Provider Letter August 04, 2022 EUNICE MARTE [address] [place] [address] EUNICE MARTE 1955 To Whom It May Concern, Please excuse above patient from work. Date of Illness: From: 08/04/2022 To: 08/04/2022 May Return to Work On: Restrictions: _ Comments: Sincerely, [facility] [address] [place] [address] Normal [facility] Urology Office/Clinic Noteon 08-04-2022 Urology Office/Clinic Note [...] lymph node dissection. I showed him the [facility] calculator which estimate his risk of organ [...] Ambulatory Referral Follow-up With When Contact Information Milvia Palomo MD, URL, URO Within 1 month Additional Instructions: Discuss PSMA PET scan & treatment options Patient Education Brachytherapy for Prostate Cancer IGood (more content not included)... Normal [facility] Comment on above: Result Comment: Elec troandersonally Signed By: Milvia Palomo MD\.br\Date and Time Signed: 08/04/22 10:53 EST Reminderson 08-03-2022 Reminders - From: Lulu Peralta LPN To: N - Clinical; Sent: 08/03/2022 14:08:01 EST Show up: 06/20/2032 07:00:00 EDT Subject: colonoscopy recall Due Date/Time: 07/21/2032 07:00:00 EST Reminder/Recall Patient is due for screening colonoscopy 07/21/2032. Normal [facility] Auth for Release of Medical Recordson 07-29-2022 Auth for Release of Medical Records [id number]#1 .00CD:127 Normal [facility] Pathology Noteon 07-26-2022 Pathology Note [id number]#1 .00CD:127 Normal [facility] Outside Colonoscopyon 2021 Outside Colonoscopy [id number]#1 .00CD:127 [facility] Lab Reportson 07-19-2022 Lab Reports [id number]#1 .00CD:127 Normal [facility]23 SARS-CoV-2 (COVID-19) RNA NISHANT+probe Ql (Unsp spec) Not detected Normal NOT DETECTED [facility] Comment on above: Result Comment: When [...] for this test is supported by the Case Assembler of Health and Human Service's declaration that [...] Performed By: #### P TT, PT #### [facility] [address] [place] [address] Dr. Marcell Luque IntraOperative Documentson 1 09-11-2021 IntraOperative Documents [id number]# 1.00CD:127 [facility] Coding Summary.on 07-09-2022 Coding Summary. CD:[id number]:[id number] G h0bWw+PGhlYWQ+CG0CFJP sO57xfNNtjA2ZJ3hMGU6N FIIJQDXUPP9GDH0nnGP6V InuC0EtebRi UaocnMMtVO55UDq1TWF5c MbhGXlevW2czIMgZ5w8St UkQS77hS96KIlnNSFjKqM 3LjZpbjsgbWFy L0qdFwUatYAiWcg+PHRhY mxlIHdpZHRoPScxMDAlJy LywWgaGI3oYc6rNCTqPRQ vbGxhcHNlOiBj p2nhXQNyFUgqER2ucVlnP 4WbgIN2GQBin4p9Br19bS I+ISGzEDG5mFslHAzck21 7PmTuo1qiNQC2 jJGiDUxvDAN5K42mb2C6D KWzWAYaEXF7dET6wU5wvO hfcqpnT3KjwDLbIhD9DLC 8pQWynL5ygWax sjwgtC5uGpj+X09GDP3EK ZGNJP5ROtw2R0MzPywzyN I+DU86VLLhWJ54lISjnYN rb3wkgZs1UnAv NZClUHU8bGhnYQuxd5ZiG CLqL67gsIFwy2L4KALooI xjeSGiObBqbMU8yS4nPSy nckxdf8qforjo Cfhzm6bxnr88nN31Y63wR SleULXrIRA2YUIwINNjwY jexd2esO2lWa5+HUgoi8b vc3uanCo0MeIb ZQMbooIhzQsrFGQ2d4YqH s03P0TxdWanx0KoWzm6xn 29fYPjd0E9oWW8XWkjDWV kkX0eHCddMtN3 WHSmSnLsjT65rNNrVRqfM n2rwNpwlEacDH2rKUTwob izPDHloS8dDJCqgBSgsTa nGQ2xKHDzzmyx m795UhQmCRL7CZWrjEEpM 8SraC3aOlYfEDByTPBcD4 WlcEHwZRihZ646TWegDwJ 3UNCoqrFiC1Ow QEMccXwhFgQ5k0J8Tn9Du 1XaplzaFYZ0WMqzZXXcZg Y4YoWpPpQ7N2EpTum5TXB bsOctVE3dZ5Td MAXseahrqhhygDY6YUGgY DZnsB08tFQhSDfvRj6jd3 H3e196NPSnZFSgqB87Dy1 udDogMTBwdCBU sS9wgqbkc2cynmrnIoZcJ GWhMNo4NXd9NRDfhBlkPo LbPUV3NqN8INV5vZTvwB1 ynRjgkpeohI0f Oyc+X01cmR7iBYX5DBK9a tspJJUxkjKfCA79VR61E4 RyPjwvdGFibGU+PGRpdiB skNklFU7zCsJq k4vyq4UsPCdfK2LzAUOiD NpjXnw5UDGeUNY0uYQ2jV 9yGOQxTPmgt1B8sGX4C4K mlgHbiu1mr2ry JEKcWYlcB38zoSNvn2A2E BNlvRR7DSLbvIbhUlAtaF 93Oyc+LMTnxAtvu5FjZmz sq7mri5haiXn0 IuNyIPUfibVdgXyhHAD7f 8CfTn19W81gHNpjVOXtQC WeAKQmGROlwEhumn2krI7 wIi8+PGNvbCB3 qQG1fI3qLZFpTqC3YFwrS 312MzCeeMKpPttcg4ept2 nrgIp2FqVgJOLkvwWymEr uVEL7w1MlWw08 I69bCIunIEBgPZGvANGiS VJcjCtoay4hbM4vLg3+PC 0nd2bfbq50nL13qZB+PHR zAAD4jMvaAPvf UXUqtP6bTEcnQnJ5VFZjQ jOsyP10pIFtWEebDz6hpG ctqKdlDT6eKKCuxmuha33 6VqAeq3lxUJSb pBNuTGuuAQI3I10ww6W0E XBiQWLlCHL1aBP2kQ9hcN lnbjogbGVmdDsgdmVydGl zRUxeISxiU870 IHRvcDsnPlBhdGllbnQgT oMtZBf3F4ViPca5RFZcrL zvDF6ybEIsJLdiAy9wrJp tjBjpXL6oXYFw ujcgj779IcZzl2ztIUZqe PUqHHtxANT3W71rl1A3NW EzMIVtLFS2dNE3sN2qzRk nbjogbGVmdDsg cvPmlBuwWPxvBAiiV327M HRvcDsnPkJpcnRoIERhdG N2WX27IB29aQSif1L4hGH 5S9KaPLTqbsey emtqcXZ4THDrYKRagN50A q0qpPfdKa1hDTCaTNU1VW CyhDZhX4ZdaZ6iWxZsWSG aGHIwP2VfnAGl CVynZ861GUowEfR6FCKas kRoT3EfMDEhtUmyTqG7x8 O4Hi2RD3Q9ZB65VV69lXR fw4G2mBA5U5Ak WAVizngckqzuaCO9FHZiK XSbhE33Ai5ggUtpKx6yRQ XjMJZ1USNmxNHgH6KpdQ3 yOiAjMDAwMDAw Q3FxyXOfIAkvN125LXndT yY8FYXklfFfC6PuGFGigV ciLxJ1w2V2Bu7WPUt6CH4 8AW16kRJad6M0 uMY3W4HeGJYqrvzrpmpqd MF4TVRaYTRiiW60Bi4pnL znQz6qYKTvVFG5MRCixIW aT8RojZ7oIoUh SYIoHHYbN2JdoIYfJGkcR 784HCaeMiD8MNUajwWzH2 XzZFWhiZxqYrR8s7L5Hl5 GTTPtTY46FMS4 rDS5JV95VY08E3NiPocgc GFibGU+PHRhYmxlIHdpZH RoPScxMDAlJyBzdHlsZT0 pHd5mBLIrWFDz jQuzgDDzXxAvy6juYGUmK GkeWR3byJreB7UzcDC5LW Dih8e2Xt50H85eZ3MdsBF +MRFhtSZ4qEW8 hL2zPvIcNrL2ROpoT681C gHlbCVpSxcnq7hzp1hbeF e6JtL1XTXbixLydYpbGZB 8g8OiWz03T87b IHdpZHRoPSIxNSUiIHZhb Twhsp2atB3hGf6+PGNvbC Z2pBT8uC9nQfAbGoM7KIs rL032AaWlaRWs Sfpon5fsy4lecLe3VeByR URgtzLwaKyqVHW1g2TsSs 50D1GhvSufe3HuRst8yz1 1xBZsx1G3vML9 Y1ZxDQYrlalmkXYnbXxhF D6bFIUsgsoqQADdlR3sUZ JmT0f6GxJoXyI5ZTmgG3Y nhpK0BBXlpXYu MKsmZEA4M65qn7W0ROVjU HDlWOB0lKD0uS4nnGhgkk ogbGVmdDsgdmVydGljYWw xYAeyU668KWIz zAnoISWicN7bFUWkcJOer OlqFU2uUKAradfhUzrJFY RFTEJVUkcsIEpBTUVTIFI 5N2GaQuo5KPIb pConTB4usQCuDPkhNm7xm TixpOunHG9nPJTrsdluSA ZwrI9yYNWvvQLrqCcmQK5 kKSGrwgzvz962 BiGsIMC3IDDsvKTsX0Tkk H5yYsDyUYEuITHnV7MofI EdYCtwL265EUyrBvR7HTP nljSmK2UmMVLz hFrjUhK9m1O0Jl0fCg9aY K3sYOS9QL87FO58gKYci3 L6hBC6W5HmMTIlmgqsyzw wiFM4KPEqRVBw nK70lVStZDbmVs3jr5Z4w 942GWRaVNOfiD40Sn5qoX zwZNIcuMMTlS8nfjape2o vcjogIzAwMDAw CFk5XKy7SHVmvJltDfXhX RH5UrX2XGF3hMFuuP4joB aomkenjA0kHfl+NjYgWWV fyrC0F7KgEfo5 VFPhgLjtAB6kvJWiOOcsZ q8fuPfmpHqtPI9xOQWbiv slWBJbgE4sZFQroNBhqSc tLJ1vYCBdouok t123WtAtNEF8SJYdhDYyX 7CmyK5mVnKrIXDePBOtC1 EizYZeBLphO820HUdmPyE 3DVGckkDnP8An BZDhpPuyPkC2q9P1Ho6TP YjqFM89GH07fUHfu8Y6hQ O1M4PtLJWiaeostjyjgFT 7LJUaQPLsvT40 yALdSZvyVz7ji5E4v001T DPnFJVdhF99Ed5gcLvlXZ ViaRNFsY1vcjtwu6urtsy gIzAwMDAwMDt0 SPx4ZZLoxNosRvJyDLA3S jH5MEO5rPHdbH2ryUjvbm mnjX5bGpu+RK8lyCferG1 gkP3NKV5tGQPq wQHEuIQlCFS0JM64GX90Y 3RyPjwvdGFibGU+PHRhYm xlIHdpZHRoPScxMDAlJyB fmQjqSD3mTs5a ZGVyLWNvbGxhcHNlOiBjb 0ejIMDjLEkoTO2urAglR9 ZkcLE3JSTdw4p1Xh30G53 vS1TlzTF+PGNv iXB1hJA6eL2uSlGqNlS6P QdgJ351WpCccGZgSfuif3 kgw3fuvYz3RdPtMTIkjhJ ukEhaPSX8t7Ix Fj22K19mMJroRXGkWJWdP BZuAXYuvFyhxu5ivN9qZn 8+RJQchER9pPX5yN5cYjD jXoC7QIfcV112 SbWinEIqMkkxR69eD5Lhe XA+TYNoFfe6TWUxsZzmBR 3wfTQhVZcuWp7rOCB5JlV iGsZtGVtfQ5Hs DCKzdopkqzkhyWY1IFLoO WKfqA23Tl0dgQgiLb6mLV AvJFH6WQEvwRUlR7VhbU0 yOiAjMDAwMDAw B7FmtFQmHLfiN924ZHhjP dV4KKJzrdWuN0FfEBAalU xmXvK6n3O6Xo7DgDoabAA mWW0hTtSpZYw6 Q2TyKri0PIBubTlrFC2za HKhXEroVr2rnSutbMkzJY 4iMOJekrpns491FbZqd8w kIDEwcHQgVGlt BYB1Z00mq9W5TCKdFWOpR FV1oQU6eQ2chKdbdzhqjZ VmdDsgdmVydGljYWwtYWx cT023GIRzlMkr JpOZZnc2D0HkBhl3TAZoe YzuSY6yeHYfIOtpIp8tcP cseAlqFW7vNMLduiqgg20 5AzMdz5xrBIWa kGIsFRvsXKI1G14ay6O5N VCiMCEmQUT3eMW6tS8uvO lnbjogbGVmdDsgdmVydGl pOWghVZbeT240 MQAboRiwNl7SRku2Z5UyW sm5QBBryNctNF4zmSCrOW qdNm0lnAzqqVbxCY2lMDV lolpqf981BeBr z4fiCTMjyHGyITrxCUR6B 34zp0V3XVAnGZZgTNP9sM K5cN9xzZxawcjruOVofIr gdmVydGljYWwt XUeeY504YUJrgEigKaKzl WVyOjwvdGQ+HL60di70Y2 KhPdgjCqx8JBAjPVC9lUY 3fX5hUKFqXEum c3R5 (more content not included)... Normal [facility] Main OR Intraoperative Recor don 07-09-2022 Main OR Intraoperative Record IntraOp Document Type FT Summary Primary Physician: Milvia Palomo MD Finalized Date/Time: 07/09/22 13:38:52 Pt. Name: SHANIQUAEUNICE NOVAK/Sex: 1955 Male Med Rec #: [id number] Physician: Milvia Palomo MD Financial #: [id number] Pt. Type: A Room/Bed: [place] [address] Admit/Disch: 07/06/22 10:08:27 - 07/06/22 17:20:00 Institution: [...] WITH ULTRA(.) Comments Last Modified By: Katherin STEEL, June Pandey RN, June Parsons RN 07/06/22 15:47:47 07/06/22 15:47:47 07/06/22 15:47:47 Entry 4 Entry 5 Case Attendee Erik Lynn RN, June Viramontes Performed Reinforcing Bar Setter - Primary Reinforcing Bar Setter - Primary Time In 07/06/22 14:55:00 07/06/22 14:55:00 Time Out 07/06/22 15:17:00 07/06/22 15:47:00 Procedure PROSTATE TRANSPERINEAL PROSTATE TRANSPERINEAL BIOPSY WITH ULTRA(.) BIOPSY WITH ULTRA(.) Comments ORIENTING PRECEPTING Last Modified By: Katherin STEEL, June Parsons RN 07/06/22 15:47:47 07/06/22 15:47:47 General Comments: PADMINI WILSON - FORTEC REP. Quinton RUIZ - PERINEOLOGIC REP. JOSEPH, ticket sorter Protocols FT Pre-Care Text: Implements protective measures [...] Antibiotic Yes Time Out Scout Lamas Jr., DO Given Participants Dewey Baird MD, Milvia Lucia, Sunny COOMBS, Shane Bell Terry T, Barbee RN, June Y Time Out Complete 07/06/22 15:08:00 Outcomes Met? [...] Procedure Yes Primary Surgeon Milvia Palomo MD 07/06/22 15:09:00 Stop 07/06/22 15:41:00 Anesthesia Type [...] and tissue Entry 1 Skin Integrity Intact, Rosman, Warm, and Skin Abnormality No Dry Outcomes Met? Yes Last Modified By: Erik Lynn 07/06/22 15:10:56 Post-Care Text: The patient is free from signs and symptoms of injury caused by extraneous objects Patient Positioning FT Pre-Care Text: Identifies physical alterations that require additional precautions for procedure-specific positioning, verifies presence of pr (more content not included)... [facility] Postoperative Documentson Postoperative Documents [id number]#1 .00CD:127 [facility] Coding Summary.on 07-07-2022 Coding Summary. CD:[id number]:[id number] G h0bWw+PGhlYWQ+KO9XYLH zB01feTKaaS3OI0sWNW0Z XZGLAJWBTL0TYR7rbXW3J ShuI2KrvkGj EfszsWCnEH73SGu5WOE6z UgjGJlrmA9reXUaF9h0Hc MqMB00cN78LMsbOJBdAeF 3LjZpbjsgbWFy Q7nhBnTgeTXnEqy+PHRhY mxlIHdpZHRoPScxMDAlJy BjvPwgBH6oYx1pKLYhRQS vbGxhcHNlOiBj m4smVUKqMXemLX4jzGxnZ 0KlvNT5NOCqs1t3Gw40fD I+OKOlUNQ0oQowZSexq97 3ZjQbh0duCWB0 oTSxQHhnGMY7J84ej3X1W FBcPLGhPGZ8mLL8qG8ymN rliwxmW0BzzKEkPeU2QQB 0bZWtiG3seIfs bflkdQ1lNxq+S74XZJ8ME QQFFI7IZub5K0EsKjxeoB I+TN33MTAmSA28lPTgjQB du1pwpXr5HmJe HLIbVFA4qQzqLNnkp7TkV VKsZ11baMHvf7B8YSMatS aboLGxVzCtuAK5xY2jRAd cwxzpg0vsevdy Onziy7wfhw36bU95E66cI JzqODKnDNQ7SDFwUSBudZ ooeb1gpQ0yJg5+RKxhp2m it4qzeAs7UlSf BPRvvvOviYfgRUY9k2MpJ y77V7UjjIles4JyUhc3ub 96zBFsg6I1aLF8DGtjYCV wzM8jSBrsHvY2 TNSbLtOfnK83gBMqCRehW t6fkPhmwDluDW1cSKOxno ecUPUagN2gCHVuaPQrmUu yGJ8qOGKoixpy w792KoNpZWE1UXAtcUVzG 3SmkX3eSjAiNZGnCPWtN7 HfxFPfZWfqR023BGdwHxO 2NYOrkePzT3Fl UFPchQqmJhM5x1D9Im8Nj 3JmwwmzOQN2BNmeAQKnIs I2PyCcGtE2Q8WlLoc1KHG ekIhcQK7qB9Bi DDRxpaeaassdqAD7NUVbS NNzyC65gLNhGEazQo7tn2 E3c653ZHCdFOPwkB88Bq9 udDogMTBwdCBU gH3lolpnw4tgeoxmUuRvN JNjQTj0LZb1XRGawNiiTj YlKGL8LlN9WNZ2rDJquD5 czYwztuwtqN9l Oyc+I96kyE0iWMN6SNZ2l gyvCFHqieHdZF26BN95L1 RyPjwvdGFibGU+PGRpdiB olTkjTE0yFtJx k2gyv9KcRFpkV7BeZTOdE XcbEby8VDYtOFM4zIO1tW 0oFQAuYApyu7D3cVA1E5F erpBqfy3ai6vl WHLrDVnvO88fmZFfh8Q3K KMpcKB6KQJawGpaSuDfzR 93Oyc+XHEtdEapl9EfZxn so1orz8gcsOv2 VhTdSZBebgArhWcwOIV2c 5WeWi85C44yDVrjCANwCW KtKKIoBUGhiHikuj4xaV6 wIi8+PGNvbCB3 iVD1vK3sQAQfScR3CNreZ 779UcEnnTRzMocmj8slx8 nqqOz4TiKfMARksyQloQp aNWW6h7HwVp02 U42tMGbeRSCaPCMnXNQyV CCgiCpscj7pgO2tHc0+PC 3sd6naai19iP15oPG+PHR mZPW8jRdiZDag JIQhpQ1mYMzwRfT3LNZlB qYlsE24ePUlUCrsBc5kaR fugBcrFP9xLGMuotnbp57 3IfMmg2aoTQWv eQQxQVvwSOK0F24cy4V5Q CLjLIHsZVL6gGD9nB9obV lnbjogbGVmdDsgdmVydGl sAHysXSwzF540 IHRvcDsnPlBhdGllbnQgT nNvPQv1O2MpOxw3LKUtuU elGA6pvPDyQFjsGn1xkJy cnWvoXV3hPZBd npkrj036EpRfz1odBTRyb HQeORuvULV4P51ex8A4GW YlFOSlWRQ6fWO2oE4ijUo nbjogbGVmdDsg xvSuwHfrFEioQTwtF970H HRvcDsnPkJpcnRoIERhdG I9WR66XG58dGBxe4W7xYE 1F3UvWQUghttc fyrrhJM0LCOiEAFgcG16B n9zbObgNp9oBZUnZMA0KG AkuCFfV1JwbH0hOuDeSCN rELBuL2GjeFRr WJuaZ504JEeuExT1QTWyg jSdX9JsUUOwrFkuScH0a6 G4Qm9KW0G8GZ74AA40xFC xo5G4cRV4B0Pv RDAdiqnwdcfzkBU2JLXmF MSnoG20Cs6ykPmoAo7jEJ KjPSJ8ZZHzcFFnG7PcoF4 yOiAjMDAwMDAw T5FpmUDnIMghY920ZUtpP vJ5NKPcgmXfH9LvYJLkyP jgBhG8h2A8Wz3UDPh2XH6 4OZ40fBJph6F8 yIK2W6XkTWChlyvbdcqry JF5UACvVTRkyV25Fw3dhJ ezIa9mLZOwSRT1EORveIE vE6LxrQ0iHcQn QAFtXQCfZ2SqqIVhBVsoX 433UClcJrH6LOEqdrKiJ8 CdNGDybImpVpD4o1T7Nl3 VTCCkJF25QEA1 gSI4KI52UQ63I2TjLcsft GFibGU+PHRhYmxlIHdpZH RoPScxMDAlJyBzdHlsZT0 kJt3mQPJkWMDd qOgtmEHjDiMpx4trOJBnZ ZdoVL5rwFzuL4OcgGY2ZK Ntz3r0Aq45D35kS9XrxVP +AZFfmHG2rPN9 iP4xKwIrRgR1TOltX541D mDnuWRzPrpzm0ffk4jncA h4QoE3NIMyskZabWmxDNB 7v7KqIi76T60e IHdpZHRoPSIxNSUiIHZhb Lhgkt5qwN9sCk3+PGNvbC B1pYB2aP8uYiOkCuN1OFz pG950XlShoSYg Zokru5dnl8lkyJu6DdBqX RBulhMgzMhaVPL9t5UrQn 05H8WawYfqr5MgKus6nb4 8hIBfi7Y5uJU4 E9MkWVRkqsscaWXfqJipH P6aSAOvfkkvYEFzrS3yDY VdK5m7DfVvDtY7CDxsY9L jqxE2SWRamTFf FRvyQSM0I81dg5Z6JWWuO OWsLIJ0kXA2jZ8puMnklk ogbGVmdDsgdmVydGljYWw wKGcqZ293ZDPa mIszOHLbcS0oLHSqaBEdv BoeIB0wQSIyyfgaCabOTI RFTEJVUkcsIEpBTUVTIFI 2J2YkAhk8KLNr oMbhBS1rgQDnXDyfGe5xp CuscNgpXE3xOACapodlBU VphH0sGYGuyUSavQciUS3 aCYSdrejcn839 HlEhEAM4PFKzzOPwD0Owf J6bEwVfIDPnRGLgA2MnqL GkAAjnJ496YGfiIrX5TLA giaLhW5CtSJKj xZygKkT1j6J4Xc0hTe8aQ F0kYIT6IZ50YW37bCSss0 U5wBW9X2HkHHMmcovqoha nhQF9HBTyVJUc nB14rEGxBArfKx5dq6E5g 088VWQyEVZpiR50Mn7oiS isHIXlwFICeG0dwkete2r vcjogIzAwMDAw DRx2RHi6ROZttCsjNbBcP JG6DpW9RFX9jJRcxA2wvF zitohitM8mWhw+NjYgWWV qcyQ8K0SjDza5 GBCsxTtmOH8kfQRtZIofG h6ahGovxXdqGR0gSTTukr xnRXRfnX7pIVMwsBWwrMu nQY2wQRVnueew u162EyNgGIO8WQRcvAUsX 7JhqN5qByUlZFFmWPVkM9 CcgXHrDIldM434OYisHwI 4EYHteyCpF7Hh MTVkbIgnMkH5p5A7Za7CC KfwVY62JV88dEXvr1V6fS I1N3OlFLTujophaxnirIA 9JAPgYKIeqN87 dNAlQIdzOt3eh5A1d835L WVuUBEqaP54Fy7vqGitKV WvcOCQjX1ckdgwc5gqfyj gIzAwMDAwMDt0 FMb8ENTdoErpCaEnLZX0N jW3JYW4nJRfiQ2tqSuitb aiiV3rQkk+J6K7aSP0gRS udDwvdGQ+PC90 ao95Y4DeXmblIxw3JNGnI HV4dOH5bP9tMEQsAEftd8 T7sIU3J7DqeoVnpr3zs7c oLWNuKOvuK14q nIZcz7D9AGRzmFN6ZALio QmsXcAtaF93Ige+PGNvbG mim2NdDqdpt8asi4erfFg 9IjMwJSIgdmFs xBlqOYQ7t3UjRq59X26iM HdpZHRoPSIzMCUiIHZhbG ewvu8awM4yBt4+PGNvbCB 4uEM2lE1kAjJt YeC7MQymY754SyFgmZKoA fxan7dsp6tarVs0SpXdKL GlooJrjGdoPQT8y8BzKy9 9H8EcnOmzo5Cu Yhc8qk09qFCst0A1qFI8U 3BhZGRpbmctbGVmdDogMC 0nKXAhhsicCSWscX2cBVB kU6e3NjOlTlU1 SLqeN5VycoI7OTMmqNBnV HMuuAXYeE5dvlpns7ilho dcRpQkDXIcBJi4UVj7LBI saWduOiBsZWZ0 BcK4MKX1kYFebH7ktRyvx pxojG1yVsp+CRp1a5obbA PhQK9vfOS8EP29SI28gZY il0S5pBT9X8Up AMGyxjexmrfwyZS1ZAAuP QZrmC87Ax8inEpqCe7eVT EkHMW6JWEswBZxU2KfyP0 yOiAjMDAwMDAw R7MuvDUrHZqpM292LKzoH yA9DQEatkXrN2WwSFLmiL prVjE7u1X1Lb1SCC25VH5 9CK38dDNkp0K7 mOR6Z5XoDQOiomumfpjwl HB1GOCbPGIveF40Mb5btQ ceUb1rUZVdONG6JEMkdFN qQ2DvlO9jRvSu WWGuOSZcO8PugMTqLJncH 166WIuxAzC5HUUfynIhD9 PiKCVzwEfbKkO1o9U4Ui5 BLv81UI33WV55 rUCci3J0mVS8Y2FfRQAoe fonvzyqyYL9CTWiXGTcvA 61Ri2qpZvsUo3tTKVwNPQ 6RRCgeBXcH9Hj sS8iZcZqOVByNFYuL5Jxz QSjMDhcR879BKkrTkR7QN RtvwNmU0RpQTTyjAfcMlV 9q5X4Eq4MIPcf ghu2I5JnTscqvTH+PC90Y UKvKK82fCRqeZLlr8rfhC b7SzMyBTEfUPC9zQbuSQk ui9SaYQDuW39d bGFw (more content not included)... [facility] Consent for Anesthesiaon Consent for Anesthesia [id number]# 1.00CD:127 [facility] Consent for Procedure/Surger yon 07-07-2022 Consent for Procedure/Surgery [id number]# 1.00CD:127 [facility] Discharge Instructionson Discharge Instructions [id number]# 1.00CD:127 [facility] IntraOperative Documentson 09-06-2021 IntraOperative Documents [id number]# 1.00CD:127 [facility] IntraOperative Documents [id number]# 1.00CD:127 [facility] Preoperative Documentson Preoperative Documents [id number]# 1.00CD:127 [facility] Preoperative Documents [id number]# 1.00CD:127 [facility] Prescriptions/Work Noteson 09-06-2021 Prescriptions/Work Notes [id number]# 1.00CD:127 [facility] Capillary Glucose POCon 06-22 Glucose [Mass/Vol] 216 mg/dL High 55-99 [facility] Comment on above: Result Comment: Jluis luna RN/ Performed By: #### 2 [id number] ####[facility] [address] [place] [address] Glucose [Mass/Vol] 233 mg/dL High 55-99 [facility] Comment on above: Result Comment: Jluis luna RN/ Performed By: #### 2 [id number] ####[facility] [address] [place] [address] Glucose Cap <20 Abnormal 55-99 [facility] Comment on above: Result Comment: Repe at Test Performed By: #### 2 [id number] ####[facility] [address] [place] [address] Consent for Treatmenton 06-22 Consent for Treatment [id number]#1 .00CD:127 Normal [facility] H&P Updateon 07-06-2022 H&P Update [id number]#1 .00CD:127 Normal [facility] Inpatient Patient Summaryon 07-06-2022 Inpatient Patient Summary [place] [id number] [facility] Clinical Discharge Instructions PERSON INFORMATION Name: EUNICE MARTE [facility]#:[id number] PHYSICIANS Admitting Physician: Milvia Palomo MD Attending [...] With: Address: When: Milvia Palomo [address] [place] [address] [phone] Business (1) [address], [address] [place] [address] [phone] Business (1) Comments: Office to followup appointment in 2 weeks for pathology review Type Location Start [facility]ish [facility] 9[facility]30 AM 07/21/2022 9:45 AM Confirmed URO Office Visit [facility] [place] 10/12/2022 10:30 AM 10/12/2022 10:45 AM Confirmed [...] needed Other (see comment)., skin Comment: Normal [facility] Laboratory - Chemistry and C hemistry - challengeOrdered By: Lab Amira on 07-06-2022 Glucose [Mass/Vol] 216 mg/dL High 55 - 99 mg/dL [facility] C POC Subsection Comment on above: [...] Finalized Date/Time: 07/06/22 16:28:27 Pt. Name: SHANIQUAEUNICE NOVAK/Sex: 1955 Male Med Rec #: [id number] Physician: Milvia Palomo MD Financial #: [id number] Pt. Type: A Room/Bed: [place] [address] Admit/Disch: 07/06/22 10:08:27 - Institution: Case Times [...] By: Chen Ramos RN 07/06/22 16:28 Normal [facility] Main OR PACU II Recordon Main OR PACU II Record PACU Phase II Document Type FT Summary Primary Physician: Milvia Palomo MD Finalized Date/Time: 07/06/22 17:20:35 Pt. Name: LYDIAEUNICE/Sex: 1955 Male Med Rec #: [id number] Physician: Milvia Palomo MD Financial #: [id number] Pt. Type: A Room/Bed: [facility]/ Admit/Disch: 07/06/22 10:08:27 - Institution: Case Times [...] By: Yissel Arellano RN 07/06/22 17:20 Normal [facility] Main OR Preoperative Recordo n 07-06-2022 Main OR Preoperative Record PreOp Document Type FT Summary Primary Physician: Milvia Palomo MD Finalized Date/Time: 07/06/22 15:10:00 Pt. Name: EUNICE MARTE/Sex: 1955 Male Med Rec #: [id number] Physician: Milvia Palomo MD Financial #: [id number] Pt. Type: A Room/Bed: [place] [address] Admit/Disch: 07/06/22 10:08:27 - Institution: Case Times [...] Signatures Signed By: Erik Lynn 07/06/22 15:10 [facility] Monitor [place] 07-06-2022 Monitor Record [id number]# 1.00CD:127 Normal [facility] No Panel InformationOrdered By: Balaji Collier on 07-06-2022 POC Device SN [id number] Invalid Interpretation Code [facility] POC Subsection POC User ID [id number] Invalid Interpretation Code [facility] POC Subsection POC Username SD TANNER Invalid Interpretation Code [facility] POC Subsection POC Device SN [id number] Invalid Interpretation Code [facility] POC Subsection POC User ID [id number] Invalid Interpretation Code FT POC Subsection POC Username SD TANNER Invalid Interpretation Code [facility] POC Subsection POC Device SN [id number] Invalid Interpretation Code [facility] POC Subsection POC User ID [id number] Invalid Interpretation Code [facility] POC Subsection POC Username SD TANNER Invalid Interpretation Code [facility] POC Subsection Operative Reporton Operative Report Patient: EUINCE MARTE Age: 66 years Sex: Male : [...] perineum is prepped with Betadine solution. The [employer]ro[employer] fusion biopsy system was set up [...] images with the preoperative MRI prostate, the [employer] fusion biopsy system was used to target [...] . Impression and Plan Diagnosis Elevated PSA (FJE54-XS R97.20, Discharge, Medical). Diagnosis Elevated PSA (FHC37-AL R97.20, Discharge, Medical). Counseled: Patient, Family. Normal [facility] Comment on above: Result Comment: Elec tronically Signed By: Milvia Palomo MD\.br\Date and Time Signed: 07/06/22 16:17 EST Outpatient Surgery Discharge Instructionon 07-06-2022 Outpatient Surgery Discharge Instruction [place] [id number] Patient Discharge Instructions PERSON INFORMATION Name: EUNICE [...] THE NEAREST EMERGENCY ROOM OR CALL 911 LYDIA Anthony JAMES R, have received the attached patient education materials/instruction s and have verbalized understanding: May we do a follow up call? Yes No I was present when discharge instructions were given Patient Signature Date Clinican/Nurse Signature Date Follow up: With: Address: When: Milvia Palomo [address] [place] [address] [phone] Business (1) [address] [address] [phone] Business (1) Comments: Office to followup appointment in 2 weeks for pathology review Type Location Start [facility] URO Office Visit [facility] EU Sujey 07/21/2022 9:30 AM 07/21/2022 9:45 AM Confirmed URO Office Visit [facility] EU Sujey 10/12/2022 10:30 AM 10/12/2022 10:45 AM Confirmed Pharmacy Information: You may receive a survey from [employer] asking you to rate your care experience. Your feedback is important and will help us understand what we do well and how we can improve the quality of care we provide to you, your loved ones and our community. It?s an honor to serve you. Thank you for choosing [facility] HERE ARE THE MEDICATION CHANGES THAT OCCURRED [...] Tylenol alte (more content not included)... Normal [facility] Patient Education - Texton 1 09-05-2021 Patient [...] for your post-operative appointment in 1-2 weeks [phone] or [phone] [facility] Progress Note-Nurseon 2021 Progress Note-Nurse In [...] is out of the anesthesia guideline protocol. [facility] Progress Note-Physicianon Progress Note-Physician Patient: EUNICE MARTE Age: 66 years Sex: Male : 1955 Associated Diagnoses: None Author: Scout Lamas Jr., DO Postoperative Information Post Operative Note: Post Anesthesia Care Unit. Anesthetic utilized: General. Health Status Allergies: Allergic Reactions (Selected) Moderate Penicillin- Unknown. Severity Not Documented Labetalol- Unknown (origin). 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 Elevated PSA / SNOMED CT 2173966575 / Confirmed Eosinophilia / SNOMED CT 9148863560 / Confirmed Erectile dysfunction / SNOMED CT 2317214035 / Confirmed GERD (gastroesophageal reflux disease) / SNOMED CT 970653343 / Confirmed Hyperlipemia / SNOMED CT 24485015 / Confirmed Hypertension / SNOMED CT 9583041495 / Confirmed Incontinence of urine / SNOMED CT 8913735373 / Confirmed 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 Plan Transfer/ Discharge: Condition stable. Normal [facility] Comment on above: Result Comment: Elec tronically Signed By: Scout Lamas Jr., DO.br\Date and Time Signed: 07/06/22 17:00 EST Progress [...] Daily, # 30 tab(s), Refills(s) 6, Pharmacy: [facility] 1429, 183, cm, 04/21/22 11:40:00 [...] 0 Histories Past Medical History: Resolved Stroke (685284876): Resolved. History of CVA (cerebrovascular accident) (1389532000): Resolved. History of DVT (deep vein thrombosis) (1702459904): Resolved. Family History: Diabetes mellitus Mother Sister Hypertension Mother Sister Father Diabetes mellitus type 2 Mother Hyperlipidemia Mother CAD - Coronary artery disease Father Mother Procedure history: Transrectal biopsy of prostate using ultrasound (US) guidance (3130334951) on 09/08/2020 at 64 Years. Colonoscopy (214125363) in 2011 at 55 Years. Arthroplasty of knee (08797617). Arthroscopy of shoulder (526668484). Insertion of catheter into spinal canal for infusion of therapeutic substance (7069877339). Lumbar discectomy (398199374). Comments: 06/25/2022 15:29 EDT - Lulu Peralta LPN L4-5 CE - Cataract extraction (3910617033). Social History Social & Psychosocial Habits Alcohol 06/25/2022 Use: Current Type: Beer Frequency: Daily Substance Abuse 06/25/2022 Risk Assessment: Denies Substance Abuse Tobacco 06/25/2022 Tobacco Use: Former smoker, quit more Smokeless tobacco use: Never (more content not included)... Normal [facility] Comment on above: Result Comment: Elec tronically Signed By: Scout Lamas Jr., DO.br\Date and Time Signed: 07/06/22 14:09 EST Outside Radiologyon 07-05-20 Outside Radiology [id number]# 1.00CD:127 [facility] Coding Summary.on 07-02-2022 Coding Summary. CD:039629KD:[id number] G h0bWw+PGhlYWQ+AR8ETZB pK70inBQuoC8KE6oCMT3P HVSEVBWKIS6GGV7xwRZ6U EntC4VwjnYw AdnqjFFuDN18DAm0QGS6g SwxBFqheH6rgTAlI4b4Qe RtPD54zR18EAjcAKRcSeR 3LjZpbjsgbWFy V2tzFkSpbEMrTvj+PHRhY mxlIHdpZHRoPScxMDAlJy BbgGznWW9tFr1nJJMrREP vbGxhcHNlOiBj p6gqVMSqSScyOA8ngBelI 7BibRR8GSAzf7w7Eg99oV I+PCBjGQW6dUqbYVwgx06 2JjHtw2smODW6 hGWgDMiiCSI6A81ac8C0Y TKfYXVeXVX1rJK6uS7jdN pijybfK8GppCBcQpC6TJJ 2mATuxQ3cwTtm mdcunI1yMif+J84AKI1IJ BQNZY2TRqu5E0YuJftfxX I+ML85ONLlSK06qGBoaUY lx7nphYe6LkLr KKEjAGU0dVwaFGqfn4WhQ YKpO52suZXrn0U4MOAezO nmpHIkPdCygBX3mF3mVGb lwjokz6sabrmv Tyoem1piln09wY24V65pK YuwVKIoOYM1JLHkPGQlfW usxx9hwS5fPh9+MMoqz9p pc4njxXz3QeFp GRBhyjCuaOqwEKE3f9UgT w58P3VlaMarl1MzGcc1uc 50oMFdk6I6eMU6XMycPPU srO1mORpqHrT0 CUKxOeQibL11cIVuEMgvK d3hgSmriDrpOA9kCYKjyl ywYZRpaM7zYKIcqMRipUg rQB2rSALvztks s294AjShADB0YCUdvKOhV 5CciU2kNkObGSPyGOIrO5 MddFAfCAsbR126DQypQbC 8QZKiqzKvL5Ui WCEwdYuyQnN3d0Q4Pi0Ue 9LxzrxcYLD5SAyyRWCfSi OzNvIyIuT6T1SqWun1QMQ dmTxkRE2rQ4Te TKBdbqsnfbitrFJ4ERWqO ZWxoG75cSVdQRshCv9rq0 J6a561KTCySKOsgG95Sz8 udDogMTBwdCBU dH4loayyq1vavvffVkJcN QKkJVk6SMs9RDTbqKukQg BkQZR8HsW1QTC9oMWezZ1 rzJpidyjbpM0e Oyc+V04feV3wXNU7SYJ3o ordXEYnoxPoRE06CG68V7 RyPjwvdGFibGU+PGRpdiB zyXvxJD3xFjUm w5sqy4VoKQnoO5AmAAJiZ MfdJxw0WQOtJIL0sPD6qR 3qJPHgADove5C5kIL5X0N mndUkax5io4xz RYRvEDwaP24nvZUpc8Y6H EDzlNH3FCKmsCmiMuQnpJ 93Oyc+MMJmuSqwk4AwYzv af5nju1tniUf1 KeKjCFZiydWmlMcmXHF8e 3NmPs52R44nPVlvBQRrDP WgHLCpFDMofKbxgv1apB9 wIi8+PGNvbCB3 yYU5gJ3aTDYgKbI7MIlcK 000SwGgaWNgLjmnd7zyw1 twvCc3OlDvTUEkijLxmXa hCUQ8h2CjPd11 Y40eUKvnNGRzKHNmIVSlP IHwrRadqt8oeA9nKo9+PC 2xf9njyw57vZ13fPF+PHR qGNN0gSnkYJqw JRQpnX8wCAyrXnQ9PLTaA zNpsF17oXUxRGdzRd1yaF wlmHtpYM3zNHNwpdqin54 6YeDwc8ruTSGo pAHdLGkeAJS0T56ec2I0L MTqRNPxKXH7pXB9kQ8ukG lnbjogbGVmdDsgdmVydGl wWGfhWBozU173 IHRvcDsnPlBhdGllbnQgT rTeGEe7N3EuTzu4ONYzdS jcXM5yeMEkOHmeVu7yfZz wiKqpHR9qMQJt hecbz956ZrNqg2rsHPYuz TFbCZgqZTE5I01rm9G5CJ KtKZZuVQB1eIC4nY2jzJp nbjogbGVmdDsg xiJetKsjHDmwDNguV198L HRvcDsnPkJpcnRoIERhdG V4ME78MN64wODtz5Z9qWC 6V6MlKTIopjxb fzlwsRL8MACoUPOmxB75J e7drZfiXa9wLHCxJEA1HH RgjYCaE0ZjgF0mYkOdZGP eQXAlI2DylOXw YUycX262OKuuAvG4SYVes zGaY8VqOYSpcVfmBhS4j2 O1Fz3VA9P0ZF11HG02cQI cu7W1zOO8H6Lh PNUzhyjalrhchET7BKKbI YKjwM69Mz0paWdkCl5tGS SjWUR7MQAysDFzO2AbsJ7 yOiAjMDAwMDAw W0DkuPKeLJofX526IMwiO pU4FWMgdaSlD4JtEAVcdS gmLjH2e5R0Rf7QOJs7TI5 8LL03pBHgl3E0 oZA1U2ZgOEVnkvrfpfjqx ZN7MFMgVJKpjD09Xk3vmW onNf4hWVBlJDK6NRTyhOA xX5JqdG7wSwEu AOFpVWMqW5OmoZNiDXprH 356DQgiSzI8HGLnroOtY1 FcNKQtlSzbTvU1r4W4Mj7 DSBUfHH82JXP1 kYI1JP93HF48N4JxSfbrt GFibGU+PHRhYmxlIHdpZH RoPScxMDAlJyBzdHlsZT0 qUy7xHXChOQWd jSylxJEfWnEvl7wuMKSsD YfoHD5afWlhD4JpkMK7YD Xcb4b6Je84M40eN9RtjXH +KIFhuHR1zQP2 eP3xAaMeKbW2XGxdV005A tNwdLRoUytzm7cmq6hdhX s1OdX5JHUwdpSfdWqdKRX 0f1OuWw89P39x IHdpZHRoPSIxNSUiIHZhb Ncblg2kpO4oJz6+PGNvbC K3eDW8mZ3yBdUgMnN8VWx cA409UpEcrAEe Cvyml6jhm7ugwNl0ZmBaC MDxmyOxgYqbGCP7v0AqGl 39B0VjwCzof3XaKsx1uw0 9qQBzs9O7uJS7 L6LxABFrqqanyEGabPktO U1rEUDpcnepDNErtM1uAV JaJ7c8CgIfZtD2XSiwV5G ltqK6HXTkzTTa CRowZUR0Q71rt8I8CKUpN HDcUFM3eHH1bH5euOnlfp ogbGVmdDsgdmVydGljYWw xZYhuO424LUDr vYksDQFngP5tDMQbnNCes NidNS7rKVTkuzjmQrjGFW RFTEJVUkcsIEpBTUVTIFI 7T9BlDgv1MCRs oTzdFJ2eeFUtEJlqXj5ua GyxrTcvNB4yQAJepetrVF VbwX9hUHRgoTZtdSjmJS9 pAYTrazgju628 KyAwPRM1DTNilRJeL3Yff O8dEjIjTXAbOGHpW6YcgK YfQWxzZ339KLewJkG5OCH uqdXkQ8LeTGMx jDueOaS6c7C2Hu3iEk1nD E1jPIS6RB17ED86yJChg7 U6rCB8D1OfLCLwrdboajm ddWN9EASmZAHk yA21uKAvDUftKl9wl4G8q 041IGTmWRRvxP71Pk2yeY vjOQPgoKJNjO9kswwmt5o vcjogIzAwMDAw SNq3IXz9OTWqmCzxZcHsZ SK4KjY7YBQ0kHRpuK7vvI litvszqA6rExg+NjYgWWV chcI9Z3DmJrz5 ECThkStlFV8cmTJvZPnlG v8fgSyndQzqGX1sIEFgfz ezSMTdjH0tBATgbHNykSf wGL9zDBJknbod d105LoDfWLJ3EGJhtFWpS 4DvcM0kSgRfAKBdSKNwE1 HfvRUqJVnkW448MMwlMkU 2HCTvcrXxE5Wa GMYabWqiShH1o6O9Mx4UF HewPC20FR37zYYth7T5uW L7N3RrILTlrrrzpeykpLE 1BYOnLMMunA82 aMOiYUwjPu7rp1E6a014U EMbXJSpjO73He2pmEmsXS BgvUAGcT3rbfwse3zyeum gIzAwMDAwMDt0 EEe7DNHhvIrbNdEiCAN5J bJ6FCH6cPLmlR3ppWwrdl ebtV6rNzd+UmVjdXJyaW5 nKS76BE06D3Zd PjwvdGFibGU+PHRhYmxlI HdpZHRoPScxMDAlJyBzdH dkST4eVj2wBKKbVFCzwDf sbVSdOxHhw2rj VDEtHIcmPL9kjGyxJ3Ouj IX8PTEvw6y3Wd96F37uE3 JvdXA+EMVaoDA2yDF7pU7 lUmXmRxD1LYys U005DmDnpVCiDfere6ked 9dqfVc5RaIkQSLfaoQuwY icNMJ7e5MlRr06V63oJAw pZHRoPSIyMCUi BERycYmczv1baH6xBo6+P OKtfVU1sWV3oH6aYrJhIz C2HBotL359GbKtrBYmBer fV54eA2HzpAO+ IZFaWkx6ENLhvAzlYR2rj TKwVRigEe1xAMI0WoLrMd SxMRxuT6UtATTjfdqagev mhOD8NDUnNVNq aD91Re6nzOduGu8sOENdI UJ1LJHszICdO6PqpK7gOw AqGGMaGUPhR8RjqFHgBLd wQ706QHgeHvT2 DKExifWbV4WtPTEqpJbiY iN3l9J6Qm4BzNinuEOfZQ 3tIzEgKRf0N1DpCjq9IBZ fiXriVD4gyRBv KQpdIb4qiJccrBvrHM3gC MUcssgqm307QmTgp0imXB DisNJeIHfiAQU7B65ds5P 7CHLhWNKlXXN1 dMW2uN8jvJgmbbiaiEChl DsgdmVydGljYWwtYWxpZ2 82GDZquTrdXfIZObp0T4A dWua2RZBlxMog WS1oxSOuKBgnHr9rbWyzy YusIR6rLHOqlaokq842Zi Pys7xzHWDbgRDqUVkuLBW 8F31xl7V9PWJk TLKaKNL0fHX1dK1cpLzfn jogbGVmdDsgdmVydGljYW rtJVglV218UMNvdLzePe0 UXjw8I9HfAhj0 YOTfjCefKI4idXFkNTneP z0izBhfaRycAO3oJROski pmf640WzVgv1gfXAEfwIY kBTlmOSK4H66y n0W6EXTfXBBjMBF3aRD8u D6qjAcngrknjQXgnFwhog QzyOwpARblZPpnS671GDP vcDsnPlBheWVy OjwvdGQ+OX45jx58M6DmC djlJtk2FFZxQID4hWK4lI 0rUOKoELrfw1Y6zTX0O0B yopStym0kw1lw YXBz (more content not included)... Normal [facility] Auto Diffon 06-30-2022 Basophils/100 WBC (Bld) 2.7 % High 0.0-2.0 [facility] Comment on above: Order Comment: Order Added by Discern Expert. Performed By: #### 2 [id number], [id number], 0002322, 9403280, [id number] #### [facility] [address] [place] [address] Basophils/Leukocytes Auto (Bld) [Pure # fraction] 0.2 E9/L Normal 0.0-0.2 [facility] Comment on above: Order Comment: Order Added by Discern Expert. Performed By: #### 2 852991, 07636348, 4257285, 8221162, [id number] #### [facility] [address] [place] [address] Eosinophils/100 WBC (Bld) 7.5 % Normal 0.0-8.0 [facility] Comment on above: Order Comment: Order Added by Discern Expert. Performed By: #### 2 283191, 45454719, 2532847, 6000057, [id number] #### [facility] [address] [place] [address] Eosinophils/Leukocyte s Auto (Bld) [Pure # fraction] 0.5 E9/L Normal 0.0-0.5 [facility] Comment on above: Order Comment: Order Added by Discern Expert. Performed By: #### 2 343465, 14426340, 4681819, 5716462, [id number] #### [facility] [address] [place] [address] Lymphocytes/100 WBC (Bld) 35.7 % Normal 14.0-50.0 [facility] Comment on above: Order Comment: Order Added by Discern Expert. Performed By: #### 2 050576, 26907804, 7672420, 1436778, [id number] #### [facility] [address] [place] [address] Lymphocytes/Leukocyte s Auto (Bld) [Pure # fraction] 2.3 E9/L Normal 1.0-4.0 [facility] Comment on above: Order Comment: Order Added by Discern Expert. Performed By: #### 2 419304, 78005187, 9987451, 4023390, [id number] #### [facility] [address] [place] [address] Monocytes/100 WBC (Bld) 7.0 % Normal 4.0-14.0 [facility] Comment on above: Order Comment: Order Added by Discern Expert. Performed By: #### 2 525654, 62466635, 8176333, 2584367, [id number] #### [facility] [address] [place] [address] Monocytes/Leukocytes Auto (Bld) [Pure # fraction] 0.5 E9/L Normal 0.2-1.0 [facility] Comment on above: Order Comment: Order Added by Discern Expert. Performed By: #### 2 321403, 45262443, 1520146, 3686759, 45563772 #### [facility] [address] [place] [address] Neutrophils/100 WBC (Bld) 47.1 % Normal 36.0-75.0 [facility] Comment on above: Order Comment: Order Added by Discern Expert. Performed By: #### 2 [id number], [id number], 7797478, 5565108, [id number] #### [facility] [address] [place] [address] Neutrophils/Leukocyte s Auto (Bld) [Pure # fraction] 3.1 E9/L Normal 2.0-7.5 [facility] Comment on above: Order Comment: Order Added by Discern Expert. Performed By: #### 2 273076, [id number], 7363335, 2609804, [id number] #### [facility] [address] [place] [address] BMPon 06-30-2022 Anion gap [Moles/Vol] 13 mmol/L Normal 6-16 [facility] Comment on above: Performed By: #### 2 981920, 27304609, 3642911, 5309778, [id number] #### [facility] [address] [place] [address] Calcium [Mass/Vol] 9.4 mg/dL Normal 8.9-11.1 [facility] Comment on above: Performed By: #### 2 698025, 91940833, 9825866, 1786829, [id number] #### [facility] [address] [place] [address] Chloride [Moles/Vol] 99 mmol/L Low 101-111 [facility] Comment on above: Performed By: #### 2 815663, 73389316, 9476314, 3721699, 45586993 #### [facility] [address] [place] [address] CO2 [Moles/Vol] 25 mmol/L Normal 21-31 [facility] Comment on above: Performed By: #### 2 880591, 65831009, 3952884, 1017900, [id number] #### [facility] [address] [place] [address] Creatinine [Mass/Vol] 1.0 mg/dL Normal 0.5-1.3 [facility] Comment on above: Performed By: #### 2 609284, 93725727, 9314232, 4744180, [id number] #### [facility] [address] [place] [address] Glucose [Mass/Vol] 241 mg/dL High 55-199 [facility] Comment on above: Result Comment: If t his glucose result represents a fasting glucose, interpretation should refer to the following reference range: 55-99 mg/dL Performed By: #### 2 676005, 49469498, 6438288, 3551386, 90718888 #### [facility] [address] [place] [address] Potassium [Moles/Vol] 3.7 mmol/L Normal 3.5-5.3 [facility] Comment on above: Performed By: #### 2 943101, 84348311, 0685521, 3851204, 92532244 #### [facility] [address] [place] [address] Sodium [Moles/Vol] 133 mmol/L Low 135-145 [facility] Comment on above: Performed By: #### 2 005270, 15430267, 9379366, 4832675, 00775306 #### [facility] [address] [place] [address] Urea nitrogen [Mass/Vol] 12 mg/dL Normal 5-21 [facility] Comment on above: Performed By: #### 2 817887, 16096259, 1051618, 7125240, 95775713 #### [facility] [address] [place] [address] Urea nitrogen/Creatinine [Mass ratio] 12 No Units Normal 10-20 [facility] Comment on above: Performed By: #### 2 783923, 01533639, 5237348, 6184216, 18242603 #### [facility] [address] [place] [address] CBC w/ Auto Diffon 2 Erythrocyte distribution width (RBC) [Ratio] 14.0 % Normal 10.9-14.2 [facility] Comment on above: Performed By: #### 2 840375, 53839872, 6013949, 2787024, 00685945 #### [facility] [address] [place] [address] Hematocrit (Bld) [Volume fraction] 40.8 % Normal 37.7-49.0 [facility] Comment on above: Performed By: #### 2 889205, 64135397, 3060496, 7385117, 75555169 #### [facility] [address] [place] [address] Hemoglobin (Bld) [Mass/Vol] 13.9 g/dL Normal 13.5-17.5 [facility] Comment on above: Performed By: #### 2 135785, 07725458, 2375080, 0918809, 72450340 #### [facility] [address] [place] [address] MCH (RBC) [Entitic mass] 27.9 pg Normal 27.0-34.0 [facility] Comment on above: Performed By: #### 2 138732, 58795194, 2763016, 8837378, 25815680 #### [facility] [address] [place] [id number] MCHC (RBC) [Mass/Vol] 34.1 g/dL Normal 31.4-36.0 [facility] Comment on above: Performed By: #### 2 354378, 97854377, 0054071, 8905572, 21772626 #### [facility] [address] [place] [address] MCV (RBC) [Entitic vol] 81.8 fL Normal 80.0-100.0 [facility] Comment on above: Performed By: #### 2 255657, 98465595, 7898755, 2223826, 14552846 #### [facility] [address] [place] [address] Platelet mean volume (Bld) [Entitic vol] 8.3 fL Normal 6.4-10.8 [facility] Comment on above: Performed By: #### 2 [id number], [id number], [id number], 7170656, [id number] #### [facility] [address] [id number] Platelets (Bld) [#/Vol] 191.0 E9/L Normal 150.0-500.0 [facility] Comment on above: Performed By: #### 2 [id number], [id number], 7474026, 8084202, [id number] #### [facility] [address] [place] [address] RBC (Bld) [#/Vol] 5.0 E12/L Normal 4.3-5.9 [facility] Comment on above: Performed By: #### 2 241367, [id number], 4849241, 0766656, [id number] #### [facility] [address] [place] [address] WBC corrected for nucl RBC Auto (Bld) [#/Vol] 6.5 E9/L Normal 4.0-11.0 [facility] Comment on above: Performed By: #### 2 015436, 92493103, 1429802, 5157838, [id number] #### [facility] [address] [place] [address] CHEMISTRYOrdered By: SYSTEM SYSTEM on 06-30-2022 Anion gap [Moles/Vol] 13 mmol/L Normal 6 - 16 mEq/L F [facility] Remisol Calcium [Mass/Vol] 9.4 mg/dL Normal 8.9 [...] for Treatmenton Consent for Treatment [id number] .00CD:127 Normal [facility] Consent for Treatment [id number]# 1.00CD:127 Normal [facility] HEMATOLOGYOrdered By: SYSTEM SYSTEM on 06-30-2022 Basophils/100 WBC (Bld) 2.7 % High 0.0 - 2.0 % FT HemeAutoSS Basophils/Leukocytes Auto (Bld) [Pure # fraction] 0.2 E9/L Normal 0.0 - 0.2 E9/L [facility] HemeAutoSS Eosinophils/100 WBC (Bld) 7.5 % Normal 0.0 - 8.0 % FT HemeAutoSS Eosinophils/Leukocyte s Auto (Bld) [Pure # fraction] 0.5 E9/L Normal 0.0 - 0.5 E9/L [facility] HemeAutoSS Lymphocytes/100 WBC (Bld) 35.7 % Normal 14.0 - 50.0 % FT HemeAutoSS Lymphocytes/Leukocyte s Auto (Bld) [Pure # [...] Coag (PPP) [Time] 33.6 second(s) Normal 25.1-36.5 [facility] Comment on above: Result Comment: Para meter [...] - 109.0 sec. Performed By: #### 2 328958, [id number], 8292131, 0343352, [id number] #### [facility] [address] [place] [address] INR Coag (PPP) [Relative time] 1.1 {INR} Invalid Interpretation Code [facility] Comment on above: Result Comment: INR results are specifically intended to assess patients stabilized on long-term Anticoagulation therapy suggested INR?s ?Less Intensive Anticoagulation? 2.0 ? 3.0 Conventional Range 3.0 ? 4.5 Performed By: #### 2 481864, [id number], 9959637, 8700496, 77349661 #### [facility] [address] [place] [address] PT Coag (PPP) [Time] 11.8 second(s) Normal 9.4-12.5 [facility] Comment on above: Result Comment: 15 d [...] no normal ranges. Performed By: #### 2 409908, 49984431, 1186252, 3466171, 97585501 #### [facility] [address] [place] [address] UA With Cult Reflexon 2021 Bilirubin Ql (U) Negative Normal Negative [facility] Comment on above: Performed By: #### 1 [id number] ####[address] [place] [address] Clarity (U) CLEAR Normal Clear [facility] Comment on above: Performed By: #### 1 [id number] ####[facility] [address] [place] [address] Color (U) YELLOW Normal Yellow [facility] Comment on above: Performed By: #### 1 [id number] ####[address] [place] [address] Epithelial cells.squamous LM.HPF (Urine sed) [#/Area] 0-2 Normal 0-2 [facility] Comment on above: Performed By: #### 1 [id number] ####[facility] [address] [place] [address] Glucose Test strip (U) [Mass/Vol] 1+ Abnormal Negative [facility] Comment on above: Performed By: #### 1 [id number] ####[address] [place] [address] Hemoglobin Ql (U) TRACE Abnormal Negative [facility] Comment on above: Performed By: #### 1 [id number] ####[facility] [address] [place] [address] Ketones (U) [Mass/Vol] Negative Normal Negative [facility] Comment on above: Performed By: #### 1 [id number] ####[facility] [address] [place] [address] [place].plasma/Lithiu m.RBC (Bld) [Mass ratio] 4-20 Normal 0-3 [facility] Comment on above: Performed By: #### 1 [id number] ####[facility] [address] [place] [address] Nitrite Ql (U) Negative Normal Negative [facility] Comment on above: Performed By: #### 1 [id number] ####[address] [place] [address] pH (U) 5.5 [pH] Invalid Interpretation Code 5.0-9.0 [facility] Comment on above: Performed By: #### 1 [id number] ####[address] [address] Protein (U) [Mass/Vol] Negative Normal Negative [facility] Comment on above: Performed By: #### 1 [id number] ####[address] [address] Specific gravity (U) [Rel density] 1.025 Invalid Interpretation Code 1.005-1.030 [facility] Comment on above: Performed By: #### 1 [id number] ####[facility] [address] [place] [address] Type of Urine collection method Clean Catch Normal [facility] Comment on above: Performed By: #### 1 [id number] ####[facility] [address] [place] [address] Urobilinogen Qn (U) 0.2 {Shaka'U}/dL Normal 0.0-1.0 [facility] Comment on above: Performed By: #### 1 [id number] ####[address] [place] [address] WBC Auto Ql (U) Negative Normal Negative [facility] Comment on above: Performed By: #### 1 [id number] ####[facility] [address] [place] [address] WBC LM.HPF (Urine sed) [#/Area] 0-5 Normal 0-5 [facility] Comment on above: Performed By: #### 1 4382345 ####[facility] [address] [place] [address] URINALYSISOrdered By: Duglas Khalil on 06-30-2022 Bilirubin [...] PM) Normal Negative [facility] UA Auto SS [place].plasma/Lithiu m.RBC (Bld) [Mass ratio] 4-20 /HPF Normal [...] PM) Invalid Interpretation Code 1.005 - 1.030 [facility] UA Auto SS UA Spec Desc Clean Catch (06/30/22 4:35 PM) Normal [facility] UA Auto SS Urobilinogen Qn (U) 0.2496439 {Shaka'U}/dL Normal 0.0 - 1.0 EU/dL WILLOW [...] V. Transcribed by: LISANDRO Technologist: VINNY Hooper [facility] eGFRon 06-30-2022 GFR/1.73 sq M.predicted among blacks MDRD (S/P/Bld) [Vol rate/Area] mL/min/{1.73_m2} Normal >=59 [facility] Comment on above: Order Comment: Order added by Discern Expert. Result Comment: eGFR is race adjusted. AA=. Performed By: #### 2 806738, 00835929, 9962010, 0561767, 49954623 ####[facility] [address] [place] [address] GFR/1.73 sq M.predicted among non-blacks MDRD (S/P/Bld) [Vol rate/Area] mL/min/{1.73_m2} Normal >=59 [facility] Comment on above: Order Comment: Order added by Discern Expert. Result Comment: Furniture Servicer anderson kidney disease could be indicated at eGFR's of less than 60 mL/min/1.73m2. Kidney failure is indicated at less than 15 mL/min/1.73m2. Performed By: #### 2 717059, [id number], 6138794, 7046073, 74339796 ####[address] [place] [address] COVID-19 ([facility])on 06-29-2022 Performing Instrument FT Willie 2 Normal Fis [facility] Comment on above: Performed By: #### 2 [id number] ####[address] [address] SARS-CoV-2 (COVID-19) RNA NISHANT+probe Ql (Resp) Not detected Normal Not Detected [facility] Comment on above: Result Comment: This test result should be correlated with clinical presentations and medical history by a healthcare provider to determine its clinical significance. This assay was performed by a reverse transcriptase real-time polymerase chain reaction (rt PCR) method on the [employer] system. This test has been authorized only [...] or revoked sooner. Performed By: #### 2 [id number] ####[address] [address] SARS-CoV-2 (COVID-19) RNA NISHANT+probe Ql (Unsp spec) Pass Normal Pass [facility] Comment on above: Performed By: #### 2 [id number] ####[address] [address] Specimen source Nom (Unsp spec) Nasal Normal [facility] Comment on above: Performed By: #### 2 [id number] ####[address] [address] Facesheeton 06-29-2022 Facesheet [id number] .00CD:127 Normal [facility] COVID-19 ([facility])on 06-28-2022 ADMITTED TO INTENSIVE CARE UNIT FOR CONDITION OF INTEREST:FIND:PT: NO Normal [facility] Comment on above: Performed By: #### 2 [id number] ####[place] [address] EMPLOYED IN A HEALTHCARE SETTING:FIND:PT: Unknown Normal [facility] Comment on above: Performed By: #### 2 [id number] ####[place] [address] FIRST TEST FOR CONDITION OF INTEREST:FIND:PT: Unknown Normal [facility] Comment on above: Performed By: #### 2 [id number] ####[place] [address] HAS SYMPTOMS RELATED TO CONDITION OF INTEREST:FIND:PT: Unknown Normal [facility] Comment on above: Performed By: #### 2 [id number] ####[place] [address] HOSPITALIZED FOR CONDITION OF INTEREST:FIND:PT: NO Normal [facility] Comment on above: Performed By: #### 2 [id number] ####[address] [address] STATUS:FIND:PT: NO Normal [facility] Comment on above: Performed By: #### 2 [id number] ####[address] [address] [facility]:FIND:PT: Unknown Normal [facility] Comment on above: Performed By: #### 2 [id number] ####[address] [address] Consent for Procedure/Surger yon 06-28-2022 Consent for Procedure/Surgery [id number] .00CD:127 Normal [facility] RAD - MISCon 06-24-2022 RAD - MIS [id number] .00CD:127 Normal [facility] XR ABD FLAT_UPon 06-15-2022 XR ABD FLAT_UP [...] SUELLEN MAYO Date: 2022-06-15 17:03 Normal [facility] CBC AUTO DIFFon 06-07-2022 BASO # 0.1 103/ul Normal 0.0-0.1 [facility] Comment on above: Performed By: #### P TT, PT #### [facility] [address] [address] [address] Marcell Luque Basophils/100 WBC (Bld) 0.6 % Normal 0.2-2.0 [facility] Comment on above: Performed By: #### P TT, PT #### [facility] [address] [place] [address] Dr. Marcell Luque EO # 0.3 103/ul Normal 0.0-0.7 [facility] Comment on above: Performed By: #### P TT, PT #### [facility] [address] [address] [address] Marcell Luque Eosinophils/100 WBC (Bld) 3.3 % Normal 0.9-7.0 [facility] Comment on above: Performed By: #### P TT, PT #### [facility] [address] [address] [address] Marcell Luque Erythrocyte distribution width (RBC) [Ratio] 13.9 % Normal 11.0-15.0 [facility] Comment on above: Performed By: #### P TT, PT #### [facility] [address] [place] [address] Dr. Marcell Luque Hematocrit (Bld) [Volume fraction] 39.3 % Critically low 42.0-54.0 [facility] Comment on above: Performed By: #### P TT, PT #### [facility] [address] [address] [address] Marcell Luque Hemoglobin (Bld) [Mass/Vol] 12.6 g/dL Critically low 14.0-18.0 [facility] Comment on above: Performed By: #### P TT, PT #### [facility] [address] [address] [address] Marcell Luque IG # 0.02 10e3/ul Normal 0.00-0.03 [facility] Comment on above: Performed By: #### P TT, PT #### [facility] [address] [address] [address] Marcell Luque IG % 0.2 % Normal 0.0-0.5 [facility] Comment on above: Performed By: #### P TT, PT #### [facility] [address] [address] [address] Marcell Luque LYMPH # 2.4 103/ul Normal 1.2-3.8 [facility] Comment on above: Performed By: #### P TT, PT #### [facility] [address] [address] [address] Marcell Luque Lymphocytes/100 WBC (Bld) 29.6 % Normal 20.5-60.0 [facility] Comment on above: Performed By: #### P TT, PT #### [facility] [address] [address] [address] Marcell Luque MANUAL DIFF REQ NO Normal [facility] Comment on above: Performed By: #### P TT, PT #### [facility] [address] [address] [address] Marcell Luque MCH (RBC) [Entitic mass] 27.9 pg Normal 25.9-34.0 [facility] Comment on above: Performed By: #### P TT, PT #### [facility] [address] [address] [address] Marcell Luque MCHC (RBC) [Mass/Vol] 32.1 g/dL Normal 29.9-35.2 [facility] Comment on above: Performed By: #### P TT, PT #### [facility] [address] [place] [address] Dr. Marcell Luque MCV (RBC) [Entitic vol] 87.1 fL Normal 80.0-94.0 [facility] Comment on above: Performed By: #### P TT, PT #### [facility] [address] [place] [address] Dr. Marcell Luque MONO # 0.9 103/ul Critically high 0.3-0.8 [facility] Comment on above: Performed By: #### P TT, PT #### [facility] [address] [place] [address] Dr. Marcell Luque Monocytes/100 WBC (Bld) 10.7 % Normal 1.7-12.0 [facility] Comment on above: Performed By: #### P TT, PT #### [facility] [address] [place] [address] Dr. Marcell Luque NEUT # 4.5 103/ul Normal 1.4-6.5 [facility] Comment on above: Performed By: #### P TT, PT #### [facility] [address] [place] [address] Dr. Marcell Luque Neutrophils/100 WBC (Bld) 55.6 % Normal 43.0-75.0 [facility] Comment on above: Performed By: #### P TT, PT #### [facility] [address] [place] [address] Dr. Marcell Luque Platelet mean volume (Bld) [Entitic vol] 10.7 fL Normal 9.5-13.5 [facility] Comment on above: Performed By: #### P TT, PT #### [facility] [address] [place] [address] Dr. Marcell Luque PLT 155 103/ul Normal 150-450 [facility] Comment on above: Performed By: #### P TT, PT #### [facility] [address] [address] [address] Marcell Luque RBC 4.51 106/ul Critically low 4.70-6.10 [facility] Comment on above: Performed By: #### P TT, PT #### [facility] [address] [address] [address] Marcell Luque WBC 8.1 103/ul Normal 4.0-11.0 [facility] Comment on above: Performed By: #### P TT, PT #### [facility] [address] [address] [address] Marcell Luque Covid-19 PCR ([facility])on 05-22 SARS-CoV-2 (COVID-19) RNA NISHANT+probe Ql (Unsp spec) Not detected Normal NOT DETECTED [facility] Comment on above: Result Comment: When [...] for this test is supported by the Case Assembler of Health and Human Service's declaration that [...] Performed By: #### P TT, PT #### [facility] [address] [address] [address] Marcell Luque LACTATE/LACTIC ACIDon 2021 Lactate [Moles/Vol] 1.4 mmol/L Normal 0.4-1.9 [facility] Comment on above: Performed By: #### L ACT #### [facility] [address] [address] [address] Marcell Luque PROF CHEM 8 (BAS METB)on Anion gap [Moles/Vol] 8.7 mmol/L Normal [facility] Comment on above: Performed By: #### B MP #### [facility] [address] [place] [address] Dr. Marcell Luque Calcium [Mass/Vol] 8.7 mg/dL Normal 8.5-10.[address] [facility] Comment on above: Performed By: #### B MP #### [facility] [address] [address] [address] Marcell Luque Chloride [Moles/Vol] 101 mmol/L Normal 98-107 [facility] Comment on above: Performed By: #### B MP #### [facility] [address] [place] [address] Dr. Marcell Luque CO2 [Moles/Vol] 29.8 mmol/L Normal 21.0-32.0 [facility] Comment on above: Performed By: #### B MP #### [facility] [address] [place] [address] Dr. Marcell Luque Creatinine [Mass/Vol] 1.12 mg/dL Normal 0.70-1.30 [facility] Comment on above: Performed By: #### B MP #### [facility] [address] [place] [address] Dr. Marcell Luque EGFR-AF [place] ISLANDER >60 Normal >=60 [facility] Comment on above: Performed By: #### B MP #### [facility] [address] [address] [address] Marcell Luque EGFR-NON AF [place]LANDER >60 Normal >=60 [facility] Comment on above: Performed By: #### B MP #### [facility] [address] [address] [address] Marcell Luque Glucose [Mass/Vol] 173 mg/dL Critically high 74-106 [facility] Comment on above: Performed By: #### B MP #### [facility] [address] [address] [address] Marcell Luque Potassium [Moles/Vol] 3.5 mmol/L Normal 3.5-5.1 [facility] Comment on above: Performed By: #### B MP #### [facility] [address] [address] [address] Marcell Luque Sodium [Moles/Vol] 136 mmol/L Normal 136-[address] [facility] Comment on above: Performed By: #### B MP #### [facility] [id number] Marcell Luque Urea nitrogen [Mass/Vol] 18.0 mg/dL Normal 7.0-18.0 [facility] Comment on above: Performed By: #### B MP #### [facility] [address] [address] [address] Marcell Luque Urea nitrogen/Creatinine [Mass ratio] 16.1 mg/mg Normal [facility] Comment on above: Performed By: #### B MP #### [facility] [address] [address] [address] Marcell Luque TROPONIN, HIGH SENSITIVITYon 06-07-2022 HSTROP 84.7 pg/mL Critically high 4.0-76.1 [facility] Comment on above: Result Comment: CUT- OFF POINTS HAVE BEEN ESTABLISHED BASED ON THE FOURTH UNIVERSAL DEFINITIONS OF MYOCARDIAL INFARCTION. THE UPPER REFERENCE LIMIT (URL) OF TROPONIN, DEFINED THE 99TH PERCENTILE OF cTnI DISTRIBUTION IN A REFERENCE POPULATION, HAS BEEN CONFIRMED THE DECISION THRESHOLD FOR MD DIAGNOSIS. Performed By: #### P TT, PT #### [facility] [address] [place] [address] Dr. Marcell Luque XR CHEST 1 Von [...] No acute cardiopulmonary abnormality. Electronically authenticated by: XOCHILT ERWIN Date: 2022-06-06 22:17 Normal [facility] AMMONIAon 06-06-2022 Ammonia (P) [Moles/Vol] 13 umol/L Normal 11-32 [facility] Comment on above: Performed By: #### A MM #### [facility] [address] [place] [address] Dr. Marcell Luque CBC AUTO DIFFon 06-06-2022 BASO # 0.1 103/ul Normal 0.0-0.1 [facility] Comment on above: Performed By: #### P TT, PT #### [facility] [address] [place] [address] Dr. Marcell Luque Basophils/100 WBC (Bld) 0.7 % Normal 0.2-2.0 [facility] Comment on above: Performed By: #### P TT, PT #### [facility] [address] [place] [address] Dr. Marcell Luque EO # 0.3 103/ul Normal 0.0-0.7 [facility] Comment on above: Performed By: #### P TT, PT #### [facility] [address] [place] [address] Dr. Marcell Luque Eosinophils/100 WBC (Bld) 4.0 % Normal 0.9-7.0 [facility] Comment on above: Performed By: #### P TT, PT #### [facility] [address] [place] [address] Dr. Marcell Luque Erythrocyte distribution width (RBC) [Ratio] 13.8 % Normal 11.0-15.0 [facility] Comment on above: Performed By: #### P TT, PT #### [facility] [address] [place] [address] Dr. Marcell Luque Hematocrit (Bld) [Volume fraction] 44.4 % Normal 42.0-54.0 [facility] Comment on above: Performed By: #### P TT, PT #### [facility] [address] [place] [address] Dr. Marcell Luque Hemoglobin (Bld) [Mass/Vol] 14.4 g/dL Normal 14.0-18.0 [facility] Comment on above: Performed By: #### P TT, PT #### [facility] [address] [place] [address] Dr. Marcell Luque IG # 0.02 10e3/ul Normal 0.00-0.03 [facility] Comment on above: Performed By: #### P TT, PT #### [facility] [address] [place] [address] Dr. Marcell Luque IG % 0.2 % Normal 0.0-0.5 [facility] Comment on above: Performed By: #### P TT, PT #### [facility] [address] [place] [address] Dr. Marcell Luque LYMPH # 2.9 103/ul Normal 1.2-3.8 [facility] Comment on above: Performed By: #### P TT, PT #### [facility] [address] [place] [address] Dr. Marcell Luque Lymphocytes/100 WBC (Bld) 35.4 % Normal 20.5-60.0 [facility] Comment on above: Performed By: #### P TT, PT #### [facility] [address] [place] [address] Dr. Marcell Luque MANUAL DIFF REQ NO Normal [facility] Comment on above: Performed By: #### P TT, PT #### [facility] [address] [place] [address] Dr. Marcell Luque MCH (RBC) [Entitic mass] 28.1 pg Normal 25.9-34.0 [facility] Comment on above: Performed By: #### P TT, PT #### [facility] [address] [place] [address] Dr. Marcell Luque MCHC (RBC) [Mass/Vol] 32.4 g/dL Normal 29.9-35.2 [facility] Comment on above: Performed By: #### P TT, PT #### [facility] [address] [place] [address] Dr. Marcell Luque MCV (RBC) [Entitic vol] 86.7 fL Normal 80.0-94.0 [facility] Comment on above: Performed By: #### P TT, PT #### [facility] [address] [place] [address] Dr. Marcell Luque MONO # 0.7 103/ul Normal 0.3-0.8 [facility] Comment on above: Performed By: #### P TT, PT #### [facility] [address] [place] [address] Dr. Marcell Luque Monocytes/100 WBC (Bld) 8.2 % Normal 1.7-12.0 [facility] Comment on above: Performed By: #### P TT, PT #### [facility] [address] [place] [address] Dr. Marcell Luque NEUT # 4.2 103/ul Normal 1.4-6.5 [facility] Comment on above: Performed By: #### P TT, PT #### [facility] [address] [place] [address] Dr. Marcell Luque Neutrophils/100 WBC (Bld) 51.5 % Normal 43.0-75.0 [facility] Comment on above: Performed By: #### P TT, PT #### [facility] [address] [place] [address] Dr. Marcell Luque Platelet mean volume (Bld) [Entitic vol] 11.0 fL Normal 9.5-13.5 [facility] Comment on above: Performed By: #### P TT, PT #### [facility] [address] [place] [address] Dr. Marcell Luque PLT 183 103/ul Normal 150-450 [facility] Comment on above: Performed By: #### P TT, PT #### [facility] [address] [place] [address] Dr. Marcell Luque RBC 5.12 106/ul Normal 4.70-6.10 [facility] Comment on above: Performed By: #### P TT, PT #### [facility] [address] [place] [address] Dr. Marcell Luque WBC 8.2 103/ul Normal 4.0-11.0 [facility] Comment on above: Performed By: #### P TT, PT #### [facility] Laboratory [address] HEAD WO CONon [...] CURTIS WILSON Date: 2022-06-06 21:56 Normal [facility] CULTURE BLOODon 06-06-2022 Microscopic examination of blood, culture Culture Observations: NO GROWTH AT 5 DAYS. Normal [facility] Comment on above: Performed By: #### P TT, PT #### [facility] [address] [place] [address] Dr. Marcell Luque Microscopic examination of blood, culture Culture Observations: NO GROWTH AT 5 DAYS. Normal [facility] Comment on above: Performed By: #### P TT, PT #### [facility] [address] [place] [address] Dr. Marcell Luque ETHANOL (BLD ALC)on 06-06-20 22 ALC NOTE NOTE: 80 mg/dl is th e legal limit for a blood alcohol level Normal [facility] Comment on above: Performed By: #### P TT, PT #### [facility] [address] [place] [address] Dr. Marcell Luque Ethanol [Mass/Vol] mg/dL Normal [facility] Comment on above: Performed By: #### P TT, PT #### [facility] [address] [place] [address] Dr. Marcell Luque LACTATE/LACTIC ACIDon 2021 Lactate [Moles/Vol] 2.9 mmol/L Critically high 0.4-1.9 [facility] Comment on above: Performed By: #### P TT, PT #### [facility] [address] [place] [address] Dr. Marcell Luque PROF 14(COMP METB)on 022 Albumin [Mass/Vol] 4.3 g/dL Normal 3.4-5.[address] [facility] Comment on above: Performed By: #### P TT, PT #### [facility] [address] [place] [address] Dr. Marcell Luque Albumin/Globulin [Mass ratio] 1.1 {ratio} Normal [facility] Comment on above: Performed By: #### P TT, PT #### [facility] [address] [place] [address] Dr. Marcell Luque ALP [Catalytic activity/Vol] 91 U/L Normal 46-116 [facility] Comment on above: Performed By: #### P TT, PT #### [facility] [address] [address] [address] Marcell Luque ALT [Catalytic activity/Vol] 35 U/L Normal 16-63 [facility] Comment on above: Performed By: #### P TT, PT #### [facility] [address] [address] [address] Marcell Luque Anion gap [Moles/Vol] 11.7 mmol/L Normal [facility] Comment on above: Performed By: #### P TT, PT #### [facility] [address] [address] [address] Marcell Luque AST [Catalytic activity/Vol] 15 U/L Normal 15-37 [facility] Comment on above: Performed By: #### P TT, PT #### [facility] [address] [place] [address] Dr. Marcell Luque Bilirubin [Mass/Vol] 0.4 mg/dL Normal 0.2-1.0 [facility] Comment on above: Performed By: #### P TT, PT #### [facility] [address] [place] [address] Dr. Marcell Luque Calcium [Mass/Vol] 9.8 mg/dL Normal 8.5-10.[address] [facility] Comment on above: Performed By: #### P TT, PT #### [facility] [address] [place] [address] Dr. Marcell Luque Chloride [Moles/Vol] 97 mmol/L Critically low 98-107 [facility] Comment on above: Performed By: #### P TT, PT #### [facility] [address] [place] [address] Dr. Marcell Luque CO2 [Moles/Vol] 30.8 mmol/L Normal 21.0-32.0 [facility] Comment on above: Performed By: #### P TT, PT #### [facility] [address] [address] [address] Marcell Luque Creatinine [Mass/Vol] 1.45 mg/dL Critically high 0.70-1.30 [facility] Comment on above: Performed By: #### P TT, PT #### [facility] [address] [address] [address] Marcell Luque EGFR-AF [place]ER 59 mL/min/1.73m2 Critically low >=60 [facility] Comment on above: Performed By: #### P TT, PT #### [facility] [address] [address] [address] Marcell Luque EGFR-NON AF [place] 49 mL/min/1.73m2 Critically low >=60 [facility] Comment on above: Performed By: #### P TT, PT #### [facility] [address] [address] [address] Marcell Luque Globulin (S) [Mass/Vol] 3.9 g/dL Normal [facility] Comment on above: Performed By: #### P TT, PT #### [facility] [address] [address] [address] Marcell Luque Glucose [Mass/Vol] 204 mg/dL Critically high 74-106 [facility] Comment on above: Performed By: #### P TT, PT #### [facility] [address] [address] [address] Marcell Luque Potassium [Moles/Vol] 3.5 mmol/L Normal 3.5-5.1 [facility] Comment on above: Performed By: #### P TT, PT #### [facility] [address] [address] [address] Marcell Luque Protein [Mass/Vol] 8.2 g/dL Normal 6.4-8.2 [facility] Comment on above: Performed By: #### P TT, PT #### [facility] [address] [address] [address] Marcell Luque Sodium [Moles/Vol] 136 mmol/L Normal 136-[address] [facility] Comment on above: Performed By: #### P TT, PT #### [facility] [address] [address] [address] Marcell Luque Urea nitrogen [Mass/Vol] 20.0 mg/dL Critically high 7.0-18.0 [facility] Comment on above: Performed By: #### P TT, PT #### [facility] [address] [place] [address] Dr. Marcell Luque Urea nitrogen/Creatinine [Mass ratio] 13.8 mg/mg Normal [facility] Comment on above: Performed By: #### P TT, PT #### [facility] [address] [place] [address] Dr. Marcell Luque PROTIMEon 06-06-2022 INR Coag (PPP) [Relative time] 1.02 {INR} Normal [facility] Comment on above: Performed By: #### P TT, PT #### [facility] [address] [place] [address] Dr. Marcell Luque INR GUIDELINES SEE BELOW Normal [facility] Comment on above: Result Comment: DANICA RED INR: 2.0 - 3.0 CONDITIONS NOT LISTED BELOW 2.5 - 3.5 FOR PROSTHETIC HEART VALVE REPLACEMENT 2.5 - 3.5 RECURRENT THROMBOSIS Performed By: #### P TT, PT #### [facility] [address] [place] [address] Dr. Marcell Luque PT Coag (PPP) [Time] 11.0 s Normal 9.0-11.6 [facility] Comment on above: Performed By: #### P TT, PT #### [facility] [address] [place] [address] Dr. Marcell Luque PTTon 06-06-2022 aPTT Coag (Bld) [Time] 25.9 s Normal 22.3-36.2 [facility] Comment on above: Performed By: #### P TT, PT #### [facility] [address] [place] [address] Dr. Marcell Luque TROPONIN, HIGH SENSITIVITYon 06-06-2022 HSTROP 92.4 pg/mL Critically high 4.0-76.1 [facility] Comment on above: Result Comment: CUT- OFF POINTS HAVE BEEN ESTABLISHED BASED ON THE FOURTH UNIVERSAL DEFINITIONS OF MYOCARDIAL INFARCTION. THE UPPER REFERENCE LIMIT (URL) OF TROPONIN, DEFINED THE 99TH PERCENTILE OF cTnI DISTRIBUTION IN A REFERENCE POPULATION, HAS BEEN CONFIRMED THE DECISION THRESHOLD FOR MD DIAGNOSIS. Performed By: #### P TT, PT #### [facility] [address] [address] [address] Marcell Luque Physician Referralon 022 Physician Referral [id number] .00CD:127 [facility] Ambulatory Visit Summaryon 1 Ambulatory Visit Summary EUNICE MARTE :1955 Visit Date:06/02/2022 Ambulatory Visit Instructions Your Diagnosis Elevated PSA BPH with urinary obstruction Erectile dysfunction Tests Performed Urnls Dip Stick Auto w/o Microscopy POC 31107 Your Care Team Attending Physician - Dewey [...] MD, Asim Singleton Where: [facility] Patient Educationon 06-02-20 22 Patient Education Urology Erectile Dysfunction Erectile dysfunction [...] these instructions at home: Medicines ? Take czga-[id number]-jtbfgnr and prescription medicines only as told by [...] of your (more content not included)... Normal [facility] Provider Letteron 06-02-2022 Provider Letter June 02, 2022 EUNICE MARTE [address] [place] [address] EUNICE MARTE 1955 To Whom It May Concern, Please excuse above patient from work. Date of Appointment: From: 06/02/2022 To: 06/02/2022 May Return to Work On:06/02/2022 Restrictions: none Comments: Shayy was with her Eunice for his appointment at our office today, any questions please call our office Sincerely, [facility] [address], [place] [address] Normal [facility] RAD - MRI Reporton RAD - MRI Report [id number]#1 .00CD:127 Normal [facility] Urology Office/Clinic Noteon 06-02-2022 Urology Office/Clinic Note Chief Complaint Patient in office for f/u to MRI of the prostate HPI Staff Patient in office for f/u to MRI of the Prostate done on 05/26/22 @ [facility]. MRI shows a focal area of T2 [...] Milvia Lucia, URL, [facility] [address], [address] [place] [address] [phone] Additional Instructions: Patient Education Erectile Dysfunction I, [...] 6 refi (more content not included)... Normal [facility] Comment on above: Result Comment: Elec tronically Signed By: Milvia Palomo MD\.br\Date and Time Signed: 06/02/22 12:00 EDT\.br\Electronically Co-Signed By: Paty Maher MA\.br\Date and Time Co-Signed: 06/02/22 10:08 EDT Creatinine (Bld) [Mass/Vol]O rdered By: Milvia Palomo on 10-05-2022 Creatinine [Mass/Vol] 0.8 mg/dL 0.6-1.3 [facility] Comment on above: ER/ESD physician is notified/shown all ISTAT results.Critical values may be confirmed by laboratory testing ifdeemed necessary by ER attending doctor. No Panel InformationOrdered By: Milvia Palomo on 05-26-2022 POC Estimated GFR > 60 [facility] Comment on above: GFR estimated refere nce range: According to KDOQI guidelines, <60 ml/min/1.73m2 is sufficient to diagnose a patient with chronic kidney disease. POC Estimated GFR Non- Amer > 60 [facility] Screenson 04-29-2022 Screens [id number]# 1.00CD:127 Normal [facility] Screens [id number] .00CD:127 Normal [facility] Patient Educationon 04-21-20 Patient Education Oncology Prostate [...] of these risk factors: ? Being of -Turkmen descent. ? Having a family history of [...] Are older than age 55. ? Are -Turkmen. ? Have a father, brother, or uncle [...] 05/19/2018 Document R (more content not included)... [facility] Provider Letteron 04-21-2022 Provider Letter April 21, 2022 EUNICE MARTE [address] [place] [address] EUNICE MARTE 1955 To Whom It May Concern, Please excuse above patient from work. Date of Illness: for appointment 04/21/2022 May Return to Work On: 04/21/2022 Restrictions: _ Comments: _ Sincerely, [facility] [address], [place] [address] [facility] Urology Office/Clinic Noteon 04-21-2022 Urology Office/Clinic [...] addressing at this time, will revisit pending statistician mathematical workup Follow-up With When Contact Information Dewey COTTO, Milvia Lucia, URL, [facility] Additional Instructions: MRI of prostate Patient Education Prostate Cancer Screening I, Lamar Lwory , personally scribed for Dr. Palomo on [...] mg T (more content not included)... Normal [facility] Comment on above: Result Comment: Elec tronically Signed By: Milvia Palomo MD\.br\Date and Time Signed: 04/21/22 17:24 EDT\.br\Electronically Co-Signed By: Laamr Lowry\.br\Date and Time Co-Signed: 04/21/22 12:13 EDT CBC AUTO DIFFon 01-26-2022 BASO # 0.1 103/ul Normal 0.0-0.1 [facility] Comment on above: Performed By: #### P TT, PT #### [facility] [address] [address] [address] Marcell Luque Basophils/100 WBC (Bld) 1.1 % Normal 0.2-2.0 [facility] Comment on above: Performed By: #### P TT, PT #### [facility] [address] [address] [address] Marcell Luque EO # 0.3 103/ul Normal 0.0-0.7 [facility] Comment on above: Performed By: #### P TT, PT #### [facility] [address] [address] [address] Marcell Luque Eosinophils/100 WBC (Bld) 5.0 % Normal 0.9-7.0 [facility] Comment on above: Performed By: #### P TT, PT #### [facility] [address] [address] [address] Marcell Luque Erythrocyte distribution width (RBC) [Ratio] 13.0 % Normal 11.0-15.0 [facility] Comment on above: Performed By: #### P TT, PT #### [facility] [address] [address] [address] Marcell Luque Hematocrit (Bld) [Volume fraction] 44.3 % Normal 42.0-54.0 [facility] Comment on above: Performed By: #### P TT, PT #### [facility] [address] [place] [address] Dr. Marcell Luque Hemoglobin (Bld) [Mass/Vol] 14.3 g/dL Normal 14.0-18.0 [facility] Comment on above: Performed By: #### P TT, PT #### [facility] [address] [place] [address] Dr. Marcell Luque IG # 0.01 10e3/ul Normal 0.00-0.03 [facility] Comment on above: Performed By: #### P TT, PT #### [facility] [address] [place] [address] Dr. Marcell Luque IG % 0.2 % Normal 0.0-0.5 [facility] Comment on above: Performed By: #### P TT, PT #### [facility] [address] [place] [address] Dr. Marcell Luque LYMPH # 2.1 103/ul Normal 1.2-3.8 [facility] Comment on above: Performed By: #### P TT, PT #### [facility] [address] [place] [address] Dr. Marcell Luque Lymphocytes/100 WBC (Bld) 32.6 % Normal 20.5-60.0 [facility] Comment on above: Performed By: #### P TT, PT #### [facility] [address] [place] [address] Dr. Marcell Luque MANUAL DIFF REQ NO Normal [facility] Comment on above: Performed By: #### P TT, PT #### [facility] [address] [place] [address] Dr. Marcell Luque MCH (RBC) [Entitic mass] 27.7 pg Normal 25.9-34.0 [facility] Comment on above: Performed By: #### P TT, PT #### [facility] [address] [place] [address] Dr. Marcell Luque MCHC (RBC) [Mass/Vol] 32.3 g/dL Normal 29.9-35.2 [facility] Comment on above: Performed By: #### P TT, PT #### [facility] [address] [place] [address] Dr. Marcell Luque MCV (RBC) [Entitic vol] 85.7 fL Normal 80.0-94.0 [facility] Comment on above: Performed By: #### P TT, PT #### [facility] [address] [place] [address] Dr. Marcell Luque MONO # 0.4 103/ul Normal 0.3-0.8 [facility] Comment on above: Performed By: #### P TT, PT #### [facility] [address] [place] [address] Dr. Marcell Luque Monocytes/100 WBC (Bld) 6.9 % Normal 1.7-12.0 [facility] Comment on above: Performed By: #### P TT, PT #### [facility] [address] [place] [address] Dr. Marcell Luque NEUT # 3.5 103/ul Normal 1.4-6.5 [facility] Comment on above: Performed By: #### P TT, PT #### [facility] [address] [place] [address] Dr. Marcell Luque Neutrophils/100 WBC (Bld) 54.2 % Normal 43.0-75.0 [facility] Comment on above: Performed By: #### P TT, PT #### [facility] [address] [place] [address] Dr. Marcell Luque Platelet mean volume (Bld) [Entitic vol] 11.9 fL Normal 9.5-13.5 [facility] Comment on above: Performed By: #### P TT, PT #### [facility] [address] [place] [address] Dr. Marcell Luque PLT 268 103/ul Normal 150-450 [facility] Comment on above: Performed By: #### P TT, PT #### [facility] [address] [place] [address] Dr. Marcell Luque RBC 5.17 106/ul Normal 4.70-6.10 [facility] Comment on above: Performed By: #### P TT, PT #### [facility] [address] [place] [address] Dr. Marcell Luque WBC 6.4 103/ul Normal 4.0-11.0 [facility] Comment on above: Performed By: #### P TT, PT #### [facility] [address] [place] [address] Dr. Marcell Luque GLYCOHEMOGLOBIN A1Con 2021 ADA RECOMMENDATION SEE BELOW Normal [facility] Comment on above: Result Comment: ADA RECOMMENDED LIMIT 4.0 - 6.0 ADA THERAPEUTIC TARGET < 7.0 ACTION SUGGESTED > 7.0 Performed By: #### A 1C #### [facility] [address] [place] [address] Dr. Marcell Luque Glucose [Mass/Vol] 272 mg/dL Normal [facility] Comment on above: Performed By: #### A 1C #### [facility] [address] [place] [address] Dr. Marcell Luque HbA1c (Bld) [Mass fraction] 11.1 % Critically high 4.5-6.2 [facility] Comment on above: Performed By: #### A 1C #### [facility] [address] [place] [address] Dr. Marcell Luque LIPID PROFILEon 01-26-2022 CHOL-HDL RATIO NORM SEE BELOW Normal [facility] Comment on above: Result Comment: 3.3 - 4.4 LOW RISK 4.4 - 7.1 AVERAGE RISK 7.1 - 11.0 MODERATE RISK >11.0 HIGH RISK Performed By: #### L IVER, LIPID, BMP #### [facility] [address] [place] [address] Dr. Marcell Luque Cholesterol [Mass/Vol] 219 mg/dL Critically high <=200 [facility] Comment on above: Performed By: #### L IVER, LIPID, BMP #### [facility] [address] [place] [address] Dr. Marcell Luque Cholesterol in HDL [Mass/Vol] 42 mg/dL Normal 40-60 [facility] Comment on above: Performed By: #### L IVER, LIPID, BMP #### [facility] [address] [address] [address] Marcell Luque Cholesterol in LDL [Mass/Vol] 151.8 mg/dL Normal [facility] Comment on above: Performed By: #### L IVER, LIPID, BMP #### [facility] [address] [address] [address] Marcell Luque Cholesterol.total/Cho lesterol in HDL [Mass ratio] 5.2 {ratio} Normal [facility] Comment on above: Performed By: #### L IVER, LIPID, BMP #### [facility] [address] [address] [address] Marcell Luque HDL NORMAL > or = 60 mg/dl - LO W CARDIOVASCULAR RISK <40 mg/dl - HIGH CARDIOVASCULAR RISK Normal [facility] Comment on above: Performed By: #### L IVER, LIPID, BMP #### [facility] [address] [address] [address] Marcell Luque LDL CALC NORMAL SEE BELOW Normal [facility] Comment on above: Result Comment: <100 mg/dl OPTIMAL 100 - 129 mg/dl NEAR OR ABOVE OPTIMAL 130 - 159 mg/dl BORDERLINE HIGH 160 - 189 mg/dl HIGH >190 mg/dl VERY HIGH Performed By: #### L IVER, LIPID, BMP #### [facility] [address] [address] [address] Marcell Luque Triglyceride [Mass/Vol] 126 mg/dL Normal <=150 [facility] Comment on above: Performed By: #### L IVER, LIPID, BMP #### [facility] [address] [address] [address] Marcell Luque VLDL CALC 25.2 mg/dL Normal [facility] Comment on above: Performed By: #### L IVER, LIPID, BMP #### [facility] [address] [address] [address] Marcell Luque LIVER PROFILEon 01-26-2022 Albumin [Mass/Vol] 3.8 g/dL Normal 3.4-5.[address] [facility] Comment on above: Performed By: #### L IVER, LIPID, BMP #### [facility] [address] [address] [address] Marcell Luque Albumin/Globulin [Mass ratio] 1.0 {ratio} Normal [facility] Comment on above: Performed By: #### L IVER, LIPID, BMP #### [facility] [address] [address] [address] Marcell Luque ALP [Catalytic activity/Vol] 106 U/L Normal 46-116 [facility] Comment on above: Performed By: #### L IVER, LIPID, BMP #### [facility] [address] [address] [address] Marcell Luque ALT [Catalytic activity/Vol] 34 U/L Normal 16-63 [facility] Comment on above: Performed By: #### L IVER, LIPID, BMP #### [facility] [address] [place] [address] Dr. Marcell Luque AST [Catalytic activity/Vol] 19 U/L Normal 15-37 [facility] Comment on above: Performed By: #### L IVER, LIPID, BMP #### [facility] [address] [place] [address] Dr. Marcell Luque BILI, CONJUGATED 0.1 mg/dL Normal 0.0-0.2 [facility] Comment on above: Performed By: #### L IVER, LIPID, BMP #### [facility] [address] [place] [address] Dr. Marcell Luque Bilirubin [Mass/Vol] 0.5 mg/dL Normal 0.2-1.0 [facility] Comment on above: Performed By: #### L IVER, LIPID, BMP #### [facility] [address] [address] [address] Marcell Luque Globulin (S) [Mass/Vol] 3.9 g/dL Normal [facility] Comment on above: Performed By: #### L IVER, LIPID, BMP #### [facility] [address] [address] [address] Marcell Luque Protein [Mass/Vol] 7.7 g/dL Normal 6.4-8.[address] [facility] Comment on above: Performed By: #### L IVER, LIPID, BMP #### [facility] [address] [address] [address] Marcell Luque PROF CHEM 8 (BAS METB)on Anion gap [Moles/Vol] 12.1 mmol/L Normal Th [facility] Comment on above: Performed By: #### L IVER, LIPID, BMP #### [facility] [address] [place] [address] Dr. Marcell Luque Calcium [Mass/Vol] 9.3 mg/dL Normal 8.5-10.[address] [facility] Comment on above: Performed By: #### L IVER, LIPID, BMP #### [facility] [address] [place] [address] Dr. Marcell Luque Chloride [Moles/Vol] 100 mmol/L Normal 98-107 [facility] Comment on above: Performed By: #### L IVER, LIPID, BMP #### [facility] [address] [place] [address] Dr. Marcell Luque CO2 [Moles/Vol] 29.1 mmol/L Normal 21.0-32.0 [facility] Comment on above: Performed By: #### L IVER, LIPID, BMP #### [facility] [address] [place] [address] Dr. Marcell Luque Creatinine [Mass/Vol] 1.23 mg/dL Normal 0.70-1.30 [facility] Comment on above: Performed By: #### L IVER, LIPID, BMP #### [facility] [address] [place] [address] Dr. Marcell Luque EGFR-AF [place]ER >60 Normal >=60 [facility] Comment on above: Performed By: #### L IVER, LIPID, BMP #### [facility] [address] [place] [address] Dr. Marcell Luque EGFR-NON AF [place]ER 59 mL/min/1.73m2 Critically low >=60 [facility] Comment on above: Performed By: #### L IVER, LIPID, BMP #### [facility] [address] [place] [address] Dr. Marcell Luque Glucose [Mass/Vol] 358 mg/dL Critically high 74-106 [facility] Comment on above: Performed By: #### L IVER, LIPID, BMP #### [facility] [address] [place] [address] Dr. Marcell Luque Potassium [Moles/Vol] 4.2 mmol/L Normal 3.5-5.1 [facility] Comment on above: Performed By: #### L IVER, LIPID, BMP #### [facility] [address] [place] [address] Dr. Marcell Luque Sodium [Moles/Vol] 137 mmol/L Normal 136-[address] [facility] Comment on above: Performed By: #### L IVER, LIPID, BMP #### [facility] [address] [place] [address] Dr. Marcell Luque Urea nitrogen [Mass/Vol] 10.0 mg/dL Normal 7.0-18.0 [facility] Comment on above: Performed By: #### L IVER, LIPID, BMP #### [facility] [address] [place] [address] Dr. Marcell Luque Urea nitrogen/Creatinine [Mass ratio] 8.1 mg/mg Normal [facility] Comment on above: Performed By: #### L IVER, LIPID, BMP #### [facility] [address] [place] [address] Dr. Marcell Luque VITAMIN D 25 OHon 01-26-2022 VIT D 25-OH 40.2 ng/mL Normal [facility] Comment on above: Performed By: #### P TT, PT #### [facility] [address] [place] [address] Dr. Marcell Luque VIT D RANGES SEE BELOW Normal [facility] Comment on above: Result Comment: <20 ng/mL Vit D deficient 20 - <30 ng/mL Vit D insufficient 30 - 100 ng/mL Vit D sufficient >100 ng/mL Potential Toxicity Performed By: #### P TT, PT #### [facility] [address] [place] [address] Dr. Marcell Luque Protein S Activityon 019 Protein [Mass/Vol] 101 % Normal 77-116 [facility] Comment on above: Result Comment: Patients [...] APA, PTT, PT, FA8, DRVT, PROCAC, PROSAC ####[facility] [address] [place] [address] Lab Director: Stas Irving MD APTTon 06-15-2019 aPTT Coag (Bld) [Time] 29.6 s Normal 20.5-30.5 [facility] Comment on above: Performed By: #### H OCYS, APA, PTT, PT, FA8, DRVT, PROCAC, PROSAC ####[facility] [address] [place] [address] Lab Director: Stas Irving MD Dilute Deepak Viperon 06-15 Dilute Deepak Viper Negative Normal [facility] Comment on above: Performed By: #### H OCYS, APA, PTT, PT, FA8, DRVT, PROCAC, PROSAC ####[facility] [address] [place] [address] Lab Director: Stas Irving MD Factor VIII Activityon 06-15 Factor VIII Activity 173 % High 50-150 [facility] Comment on above: Performed By: #### H OCYS, APA, PTT, PT, FA8, DRVT, PROCAC, PROSAC ####[facility] [address] [place] [address] Lab Director: Stas Irving MD PTon 06-15-2019 INR Coag (PPP) [Relative time] 1.1 {INR} Normal [facility] Comment on above: Result Comment: Therapeutic Range: Moderate Anticoagulant Intensity: INR = 2.0-3.0 High Anticoagulant Intensity: INR = 2.5-3.5 Performed By: #### H OCYS, APA, PTT, PT, FA8, DRVT, PROCAC, PROSAC ####[facility] [address] [place], [place] [phone] lab Director: Stas Irving MD PT Coag (PPP) [Time] 11.8 s Normal 9.0-12.0 [facility] Comment on above: Performed By: #### H OCYS, APA, PTT, PT, FA8, DRVT, PROCAC, PROSAC ####[facility] [address] [place], [place] [address])[phone] Director: Stas Irving MD Protein C Activityon 019 Protein [Mass/Vol] 130 % Normal >80 [facility] Comment on above: Result Comment: Patients [...] APA, PTT, PT, FA8, DRVT, PROCAC, PROSAC ####[facility] [address] [place] [address] lab Director: Stas Irving MD Anti-Phospholipid Abon 06-12 Antiphospholipid IgA 15.3 APU High <12 [facility] Comment on above: Result Comment: Reference Range: 12 - 15 Equivocal >15 Positive Performed By: #### H OCYS, APA, PTT, PT, FA8, DRVT, PROCAC, PROSAC ####[facility] [address] [place] [address] [id number] lab Director: Stas Irving MD Antiphospholipid IgG 2.7 GPU Normal <20 [facility] Comment on above: Result Comment: Reference Range: 20.0 - 29.9 Low Positive 30.0 - 79.9 Moderate Positive >79.9 High Positive Performed By: #### H OCYS, APA, PTT, PT, FA8, DRVT, PROCAC, PROSAC ####[facility] [address] [place], [place] [id number] Lab Director: Stas Irving MD Antiphospholipid IgM 4.7 MPU Normal <20 [facility] Comment on above: Result Comment: Reference Range: 20.0 - 29.9 Low Positive 30.0 - 79.9 Moderate Positive >79.9 High Positive Performed By: #### H OCYS, APA, PTT, PT, FA8, DRVT, PROCAC, PROSAC ####[facility] [address] [place], [place] [address] lab Director: Stas Irving MD Basic Metabolic Panel 05-22 Anion gap [Moles/Vol] 12 mmol/L 9 - 17 mmol/L [place] Bun/Cre Ratio NOT REPORTED [place] Calcium [Mass/Vol] 9.6 mg/dL 8.6 - 10. 4 mg/dL [place] Chloride [Moles/Vol] 97 mmol/L Low 98 - 10 7 mmol/L [place] CO2 [Moles/Vol] 29 mmol/L 20 - 31 mmol/L [place] Creatinine [Mass/Vol] 1.08 mg/dL 0.7 - 1.2 mg/dL [place] GFR >60 >60 mL/min [place] GFR Non- >60 >60 mL/min [place] GFR/1.73 sq M predicted among non-blacks MDRD (S/P/Bld) [Vol rate/Area] [place] Comment on above: Average GFR for 60-6 9 years old: 85 mL/min/1.73sq m Chronic Kidney Disease: <60 mL/min/1.73sq m Kidney failure: <15 mL/min/1.73sq m eGFR calculated using average adult body mass. Additional eGFR calculator available at: http://www.PowerO[employer]/multiple_crcl_2012.htm GFR/1.73 sq M predicted among non-blacks MDRD (S/P/Bld) [Vol rate/Area] NOT REPORTED [place] Glucose [Mass/Vol] 198 mg/dL High 70 - 99 mg/dL [place] Interpretation and review of laboratory results Abnormal [place] Potassium [Moles/Vol] 3.9 mmol/L 3.7 - 5.3 mmol/L [place] Sodium [Moles/Vol] 138 mmol/L 135 - 144 mmol/L [place] Urea nitrogen [Mass/Vol] 14 mg/dL 8 - 23 mg/dL [place] Basic Metabolic Profon 06-09 (cont.) Normal [facility] Comment on above: Result Comment: Aver age GFR for 60-69 years old: 85 mL/min/1.73sq m Chronic Kidney Disease: <60 mL/min/1.73sq m Kidney failure: <15 mL/min/1.73sq m eGFR calculated using average adult body mass. Additional eGFR calculator available at: http://www.PowerOasis/multiple_crcl_2012.htm Performed By: #### C DP, BMP ####[facility] [address] [place] [address] Lab Director: Stas Irving MD Anion gap [Moles/Vol] 12 mmol/L Normal 9-17 [facility] Comment on above: Performed By: #### C DP, BMP ####[facility] [address] [place] [address] Lab Director: Stas Irving MD Calcium [Mass/Vol] 9.6 mg/dL Normal 8.6-10.4 [facility] Comment on above: Performed By: #### C DP, BMP ####[facility] [address] [place], [place] [id number] Lab Director: Stas Irving MD Chloride [Moles/Vol] 97 mmol/L Low 98-107 [facility] Comment on above: Performed By: #### C DP, BMP ####[facility] [address] [place], [place] [phone] Director: Stas Irving MD CO2 [Moles/Vol] 29 mmol/L Normal 20-31 [facility] Comment on above: Performed By: #### C DP, BMP ####[facility] [address] [place], [place] [id number])[phone] Director: Stas Irving MD Creatinine [Mass/Vol] 1.08 mg/dL Normal 0.70-1.20 [facility] Comment on above: Performed By: #### C DP, BMP ####[facility] [address] [place], [place] [phone])[phone] Director: Stas Irving MD GFR, Amer >60 Normal >60 [facility] Comment on above: Performed By: #### C DP, BMP ####[facility] [address] [place], [place] [id number])[phone] Director: Stas Irving MD GFR,non Amer >60 Normal >60 [facility] Comment on above: Performed By: #### C DP, BMP ####[facility] [address] [place], [place] [id number])[phone] Director: Stas Irving MD Glucose [Mass/Vol] 198 mg/dL High 70-99 [facility] Comment on above: Performed By: #### C DP, BMP ####[facility] [address]36[address] [place], [place] [id number])[phone] Director: Stas Irving MD Potassium [Moles/Vol] 3.9 mmol/L Normal 3.7-5.3 [facility] Comment on above: Performed By: #### C DP, BMP ####[facility] [address] [place], [place] [phone] Lab Director: Stas Irving MD Sodium [Moles/Vol] 138 mmol/L Normal 135-144 [facility] Comment on above: Performed By: #### C DP, BMP ####[facility] [address] [place] [address] Lab Director: Stas Irvign MD Urea nitrogen [Mass/Vol] 14 mg/dL Normal 8- [facility] Comment on above: Performed By: #### C DP, BMP ####[facility] [address] [place] [address] Lab Director: Stas Irving MD BUN/CRE Ratio NOT REPORTED Normal - [facility] Comment on above: Performed By: #### C DP, BMP ####[facility] [address] [place] [address] Lab Director: Stas Irving MD Staging: NOT REPORTED Normal [facility] Comment on above: Performed By: #### C DP, BMP ####[facility] [address] [place] [address] Lab Director: Stas Irving MD CBC Auto Differentialon 05-22 Basophils (Bld) [#/Vol] 0.07 10*3/uL [place] Basophils/100 WBC (Bld) 1 % 0 - 2 % [place] Differential Type NOT REPORTED [place] Eosinophils (Bld) [#/Vol] 0.77 10*3/uL High [place] Eosinophils/100 WBC (Bld) 10 % High 1 - 4 % [place] Erythrocyte distribution width (RBC) [Ratio] 13.7 % 11.8 - 14.4 % [place] Hematocrit (Bld) [Volume fraction] 53.7 % High 40.7 - 50.3 % [place] Hemoglobin (Bld) [Mass/Vol] 17.0 g/dL 13 - 17 g/dL [place] Immature granulocytes (Bld) [#/Vol] 10*3/uL [place] Immature granulocytes (Bld) [#/Vol] 0 % 0 [place] Interpretation and review of laboratory results Abnormal [place] Lymphocytes (Bld) [#/Vol] 2.66 10*3/uL [place] Lymphocytes/100 WBC (Bld) 36 % 24 - 43 % [place] MCH (RBC) [Entitic mass] 28.3 pg 25.2 - 33.5 pg [place] MCHC (RBC) [Mass/Vol] 31.7 g/dL 28.4 - 34.8 g/dL [place] MCV (RBC) [Entitic vol] 89.5 fL 82.6 - 102.9 fL [place] Monocytes (Bld) [#/Vol] 0.89 10*3/uL [place] Monocytes/100 WBC (Bld) 12 % 3 - 12 % [place] Platelet mean volume (Bld) [Entitic vol] 10.9 fL 8.1 - 13.5 fL [place] Platelets (Bld) [#/Vol] NOT REPORTED [place] Platelets (Bld) [#/Vol] 189 10*3/uL [place] RBC (Bld) [#/Vol] 6.00 10*6/uL High 4.21 - 5.7 7 m/uL [place] RBC morphology finding Nom (Bld) NOT REPORTED [place] Segmented neutrophils/100 WBC (Bld) 41 % 36 - 65 % [place] Segs Absolute 3.07 [place] WBC (Bld) [#/Vol] 0.0 10*3/uL 0.0 per 10 0 WBC [place] WBC (Bld) [#/Vol] 7.5 10*3/uL [place] WBC Morphology NOT REPORTED [place] CBC with Diffon 06-09-2019 Abs. Basophil 0.07 k/uL Normal 0.00-0.20 [facility] Comment on above: Performed By: #### C DP, BMP ####[address] [address])[phone] Director: Stas Irving MD Abs.Imm.Granulocyte <0.03 Normal 0.00-0.30 [facility] Comment on above: Performed By: #### C DP, BMP ####[address] [address])[phone] Director: Stas Irving MD Abs.Neutrophil (Seg) 3.07 k/uL Normal 1.50-8.10 [facility] Comment on above: Performed By: #### C DP, BMP ####[address] [address])[phone] Director: Stas Irving MD Basophils/100 WBC (Bld) 1 % Normal 0-2 [facility] Comment on above: Performed By: #### C DP, BMP ####[place], [place] [address])[phone] Director: Stas Irving MD Eosinophils (Bld) [#/Vol] 0.77 10*3/uL High 0.00-0.44 [facility] Comment on above: Performed By: #### C DP, BMP ####[address] [address])[phone] Director: Stas Irving MD Eosinophils/100 WBC (Bld) 10 % High 1-4 [facility] Comment on above: Performed By: #### C DP, BMP ####[address] [address])[phone] Director: Stas Irving MD Erythrocyte distribution width (RBC) [Ratio] 13.7 % Normal 11.8-14.4 [facility] Comment on above: Performed By: #### C DP, BMP ####[place], [place] [address])[phone] Director: Stas Irving MD Hematocrit (Bld) [Volume fraction] 53.7 % High 40.7-50.3 [facility] Comment on above: Performed By: #### C DP, BMP ####[facility] [address] [place], [place] [id number])[phone] Director: Stas Irving MD Hemoglobin (Bld) [Mass/Vol] 17.0 g/dL Normal 13.0-17.0 [facility] Comment on above: Performed By: #### C DP, BMP ####[address] [place] [place], [place] [address])[phone] Director: Stas Irving MD Immature granulocytes (Bld) [#/Vol] 0 % Normal 0 [facility] Comment on above: Performed By: #### C DP, BMP ####[place], [place] [address])[phone] Director: Stas Irving MD Lymphocytes (Bld) [#/Vol] 2.66 10*3/uL Normal 1.10-3.70 [facility] Comment on above: Performed By: #### C DP, BMP ####[address] [address])[phone] Director: Stas Irving MD Lymphocytes/100 WBC (Bld) 36 % Normal 24-43 [facility] Comment on above: Performed By: #### C DP, BMP ####[facility] [address] [place], [place] [address])[phone] Director: Stas Irving MD MCH (RBC) [Entitic mass] 28.3 pg Normal 25.2-33.5 [facility] Comment on above: Performed By: #### C DP, BMP ####[facility] [address] [place], [place] [address])[phone] Director: Stas Irving MD MCHC (RBC) [Mass/Vol] 31.7 g/dL Normal 28.4-34.8 [facility] Comment on above: Performed By: #### C DP, BMP ####[place], [place] [address])[phone] Director: Stas Irving MD MCV (RBC) [Entitic vol] 89.5 fL Normal 82.6-102.9 [facility] Comment on above: Performed By: #### C DP, BMP ####[place], [place] [address])[phone] Director: Stas Irving MD Monocytes (Bld) [#/Vol] 0.89 10*3/uL Normal 0.10-1.20 [facility] Comment on above: Performed By: #### C DP, BMP ####[place], [place] [address])[phone] Director: Stas Irving MD Monocytes/100 WBC (Bld) 12 % Normal 3-12 [facility] Comment on above: Performed By: #### C DP, BMP ####[place], [place] [address])[phone] Director: Stas Irving MD Neutrophil (Seg) 41 % Normal 36-65 [facility] Comment on above: Performed By: #### C DP, BMP ####[place], [place] [address])[phone] Director: Stas Irving MD NRBC Automated 0.0 per 100 WBC Normal 0.0 [facility] Comment on above: Performed By: #### C DP, BMP ####[place], [place] [address])[phone] Director: Stas Irving MD Platelet mean volume (Bld) [Entitic vol] 10.9 fL Normal 8.1-13.5 [facility] Comment on above: Performed By: #### C DP, BMP ####[facility] [address] [place], [place] [id number])[phone] Director: Stas Irving MD Platelets (Bld) [#/Vol] 189 10*3/uL Normal 138-453 [facility] Comment on above: Performed By: #### C DP, BMP ####[facility] [address] [place] [address] Lab Director: Stas Irving MD RBC (Bld) [#/Vol] 6.00 10*6/uL High 4.21-5.77 [facility] Comment on above: Performed By: #### C DP, BMP ####[facility] [address] [place] [address] Lab Director: Stas Irving MD WBC (Bld) [#/Vol] 7.5 10*3/uL Normal 3.5-11.3 [facility] Comment on above: Performed By: #### C DP, BMP ####[facility] [address] [place] [address] [id number])[phone] Director: Stas Irving MD Auto Diff Performed NOT REPORTED Normal [facility] Comment on above: Performed By: #### C DP, BMP ####[facility] [address] [place], [place] [id number])[phone] Director: Stas Irving MD Platelets (Bld) [#/Vol] NOT REPORTED Normal [facility] Comment on above: Performed By: #### C DP, BMP ####[facility] [address] [place], [place] [id number])[phone] Director: Stas Irving MD RBC morphology finding Nom (Bld) NOT REPORTED Normal [facility] Comment on above: Performed By: #### C DP, BMP ####[facility] [address]cc6[address] [place], [place] [id number])[phone] Director: Stas Irving MD WBC Morphology NOT REPORTED Normal [facility] Comment on above: Performed By: #### C DP, [facility] ####[facility] [place], [place] 7907508 Lab Director: Stas Irving MD DNA Testingon 06-09-2019 DNA Testing (NOTE) [id number] [facility] [address] [place], [place] [address] FACTOR V LEIDEN MUTATION ANALYSIS REPORT [employer] [facility] Aron Llanes MD, Ravinder Pratt MD Specimen(s) Received: Peripheral blood, FVLI Clinical Information: CVA RESULTS: MOLECULAR GENETIC DIAGNOSIS: Negative for Factor V Leiden Mutation INTERPRETATION: The Factor V Leiden mutation (1691GA) [c.1601G>A(p.[id number] n)] was not detected in this study. This patient may, however, still be at risk for venous thrombosis due to another genetic predisposition including the Factor II (Prothrombin 16116OO) mutation or either of the 5, 10-methylenetetrahydr ofolate reductase (MTHFR) mutations (677T and G8574Q) Additional molecular testing is available for these [...] which predicts a single amino acid replacement (Toh335Imk) at one of three activated protein C [...] the Invader Factor V test that utilizes [employer] chemistry for detecting gene-specific sequences. Target amplification [...] Invader and Cleavase are registered trademarks of [employer] This test is performed pursuant to an agreement with [employer] Electronically Signed Out Ravinder Pratt M.D. Normal [facility] Comment on above: Performed By: #### P PPFVL ####[address] [phone] Lab Director: Stas Irving MD DNA Testing (NOTE) [id number] [facility]ORAT[facility] [address] [place], [place] [address] FACTOR II (PROTHROMBIN) MUTATION ANALYSIS REPORT [facility] Aron Llanes MD, Ravinder Pratt MD Specimen(s) Received: Peripheral blood, PTI Clinical Information: CVA RESULTS: MOLECULAR GENETIC DIAGNOSIS: Negative for Prothrombin 61717M Mutation INTERPRETATION: The Factor II (Prothrombin) mutation (85519WA) [c.*97G>A] was not detected in this study. This patient may, however, still be at risk for venous thrombosis due to another genetic predisposition including the Factor V Leiden (1691GA) mutation or either of the 5, 10-methylenetetrahydr ofolate reductase (MTHFR) mutations (677T and N0707N). Additional molecular testing is available for these [...] been identified in exon 14 at position 64113 of the prothrombin gene (68077MC). This allele has a population frequency of 1.2% and is associated with a 2.8 fold increased risk of venous thrombosis in individuals of [place] ancestry. Patient DNA is assayed for the presence of wild type or mutant gene sequences in the Factor II (Prothrombin) gene by the Invader Factor II test that utilizes [employer] chemistry for detecting gene-specific sequences. Target amplification [...] Invader and Cleavase are registered trademarks of [employer]. This test is performed pursuant to an agreement with [employer] Electronically Signed Out Ravinder Pratt M.D. Normal [facility] Comment on above: Performed By: #### P PPPT ####[facility] [address] [place] [address] Lab Director: Stas Irving MD Homocysteineon 06-09-2019 Homocysteine 9.4 umol/L Normal <15.0 [facility] Comment on above: Performed By: #### H OCYS, APA, PTT, PT, FA8, DRVT, PROCAC, PROSAC ####[facility] [address] [place] [address] lab Director: Stas Irving MD Homocysteine, Serumon 2018 Homocysteine 9.4 umol/L <15.0 [place] POC Glucose Fingerstickon Glucose [Mass/Vol] 276 mg/dL High 75 - 110 mg/dL [place], [place] Interpretation and review of laboratory results Abnormal [place] Glucose [Mass/Vol] 190 mg/dL High 75 - 110 mg/dL [place] Interpretation and review of laboratory results Abnormal [place] Basic Metabolic Panelon 05-22 Anion gap [Moles/Vol] 14 mmol/L 9 - 17 mmol/L [place] Bun/Cre Ratio NOT REPORTED [place] Calcium [Mass/Vol] 9.2 mg/dL 8.6 - 10. 4 mg/dL [place] Chloride [Moles/Vol] 96 mmol/L Low 98 - 10 7 mmol/L [place] CO2 [Moles/Vol] 24 mmol/L 20 - 31 mmol/L [place] Creatinine [Mass/Vol] 0.79 mg/dL 0.7 - 1.2 mg/dL [place] GFR >60 >60 mL/min [place] GFR Non- >60 >60 mL/min [place] GFR/1.73 sq M predicted among non-blacks MDRD (S/P/Bld) [Vol rate/Area] NOT REPORTED [place] GFR/1.73 sq M predicted among non-blacks MDRD (S/P/Bld) [Vol rate/Area] [place] Comment on above: Average GFR for 60-6 9 years old: 85 mL/min/1.73sq m Chronic Kidney Disease: <60 mL/min/1.73sq m Kidney failure: <15 mL/min/1.73sq m eGFR calculated using average adult body mass. Additional eGFR calculator available at: http://www.[employer]/multiple_crcl_2012.htm Glucose [Mass/Vol] 225 mg/dL High 70 - 99 mg/dL [place] Interpretation and review of laboratory results Abnormal [place] Potassium [Moles/Vol] 3.3 mmol/L Low 3.7 - 5.3 mmol/L [place] Sodium [Moles/Vol] 134 mmol/L Low 135 - 144 mmol/L [place] Urea nitrogen [Mass/Vol] 11 mg/dL 8 - 23 mg/dL [place] Basic Metabolic Profon 06-08 (cont.) Normal [facility] Comment on above: Result Comment: Aver age GFR for 60-69 years old: 85 mL/min/1.73sq m Chronic Kidney Disease: <60 mL/min/1.73sq m Kidney failure: <15 mL/min/1.73sq m eGFR calculated using average adult body mass. Additional eGFR calculator available at: http://www.[employer]Oasis/Apartama_crcl_2012.htm Performed By: #### S TROKE #### [employer] [address] [place] [address] Mine Administrator Supervisor: Stas Irving MD Anion gap [Moles/Vol] 14 mmol/L Normal 9-17 [facility] Comment on above: Performed By: #### S TROKE #### [facility] [employer] [address] [place] [address] Mine Administrator Supervisor: Stas Irving MD Calcium [Mass/Vol] 9.2 mg/dL Normal 8.6-10.4 [facility] Comment on above: Performed By: #### S TROKE #### [facility] [address] [place] [address] Mine Administrator Supervisor: Stas Irving MD Chloride [Moles/Vol] 96 mmol/L Low 98-107 [facility] Comment on above: Performed By: #### S TROKE #### [facility] [address] [place] [address] Mine Administrator Supervisor: Stas Irving MD CO2 [Moles/Vol] 24 mmol/L Normal 20-31 [facility] Comment on above: Performed By: #### S TROKE #### [facility] [employer] [address] [place] [address] Mine Administrator Supervisor: Stas Irving MD Creatinine [Mass/Vol] 0.79 mg/dL Normal 0.70-1.20 [facility] Comment on above: Performed By: #### S TROKE #### [address] [address] Mine Administrator Supervisor: Stas Irving MD GFR, Amer >60 Normal >60 [facility] Comment on above: Performed By: #### S TROKE #### [address] [address] Mine Administrator Supervisor: Stas Irving MD GFR,non Amer >60 Normal >60 [facility] Comment on above: Performed By: #### S TROKE #### [facility] [employer] [address] [place] [address] Mine Administrator Supervisor: Stas Irving MD Glucose [Mass/Vol] 225 mg/dL High 70-99 [facility] Comment on above: Performed By: #### S TROKE #### [facility] [employer] [address] [place] [address] Mine Administrator Supervisor: Stas Irving MD Potassium [Moles/Vol] 3.3 mmol/L Low 3.7-5.3 [facility] Comment on above: Performed By: #### S TROKE #### [facility] [place] [address] Mine Administrator Supervisor: Stas Irving MD Sodium [Moles/Vol] 134 mmol/L Low 135-144 [facility] Comment on above: Performed By: #### S TROKE #### [facility] [address] [place] [address] Mine Administrator Supervisor: Stas Irving MD Urea nitrogen [Mass/Vol] 11 mg/dL Normal 04-13 [facility] Comment on above: Performed By: #### S TROKE #### [facility] [employer] [address] [place] [address] Mine Administrator Supervisor: Stas Irving MD BUN/CRE Ratio NOT REPORTED Normal 05-11 [facility] Comment on above: Performed By: #### S TROKE #### [facility] [employer] [address] [place] [address] Mine Administrator Supervisor: Stas Irving MD Staging: NOT REPORTED Normal [facility] Comment on above: Performed By: #### S TROKE #### [facility] [employer] [address] [place] [address] Mine Administrator Supervisor: Stas Irving MD CBC Auto Differentialon 05-22 Basophils (Bld) [#/Vol] 0.06 10*3/uL [place] Basophils/100 WBC (Bld) 1 % 0 - 2 % [place] Differential Type NOT REPORTED [place] Eosinophils (Bld) [#/Vol] 0.56 10*3/uL High [facility], [place] Eosinophils/100 WBC (Bld) 8 % High 1 - 4 % [place] Erythrocyte distribution width (RBC) [Ratio] 13.9 % 11.8 - 14.4 % [place] Hematocrit (Bld) [Volume fraction] 50.9 % High 40.7 - 50.3 % [place] Hemoglobin (Bld) [Mass/Vol] 16.8 g/dL 13 - 17 g/dL [place] Immature granulocytes (Bld) [#/Vol] 1 % High 0 [place] Immature granulocytes (Bld) [#/Vol] 0.04 10*3/uL [place] Interpretation and review of laboratory results Abnormal [place] Lymphocytes (Bld) [#/Vol] 2.28 10*3/uL [place] Lymphocytes/100 WBC (Bld) 32 % 24 - 43 % [place] MCH (RBC) [Entitic mass] 28.6 pg 25.2 - 33.5 pg [place] MCHC (RBC) [Mass/Vol] 33.0 g/dL 28.4 - 34.8 g/dL [place] MCV (RBC) [Entitic vol] 86.6 fL 82.6 - 102.9 fL [place] Monocytes (Bld) [#/Vol] 0.79 10*3/uL [place] Monocytes/100 WBC (Bld) 11 % 3 - 12 % [place] Platelet mean volume (Bld) [Entitic vol] 12.0 fL 8.1 - 13.5 fL [place] Platelets (Bld) [#/Vol] 285 10*3/uL [place] Platelets (Bld) [#/Vol] NOT REPORTED [place] RBC (Bld) [#/Vol] 5.88 10*6/uL High 4.21 - 5.7 7 m/uL [place] RBC morphology finding Nom (Bld) NOT REPORTED [place] Segmented neutrophils/100 WBC (Bld) 47 % 36 - 65 % [place] Segs Absolute 3.38 [place] WBC (Bld) [#/Vol] 7.1 10*3/uL [place] WBC (Bld) [#/Vol] 0.3 10*3/uL High 0.0 per 10 0 WBC [place] WBC Morphology NOT REPORTED [place] CBC with Diffon 06-08-2019 Abs. Basophil 0.06 k/uL Normal 0.00-0.20 [facility] Comment on above: Performed By: #### S MAGDY #### [address] [address] Mine Administrator Supervisor: Stas Irving MD Abs.Imm.Granulocyte 0.04 k/uL Normal 0.00-0.30 [facility] Comment on above: Performed By: #### S MAGDY #### [facility] [employer] [address] [place] [address] Mine Administrator Supervisor: Stas Irving MD Abs.Neutrophil (Seg) 3.38 k/uL Normal 1.50-8.10 [facility] Comment on above: Performed By: #### S MAGDY #### [address] [address] Mine Administrator Supervisor: Stas Irving MD Basophils/100 WBC (Bld) 1 % Normal 0-2 [facility] Comment on above: Performed By: #### S MAGDY #### [address] [address] Mine Administrator Supervisor: Stas Irving MD Eosinophils (Bld) [#/Vol] 0.56 10*3/uL High 0.00-0.44 [facility] Comment on above: Performed By: #### S MAGDY #### [facility] [employer] [address] [place] [address] Mine Administrator Supervisor: Stas Irving MD Eosinophils/100 WBC (Bld) 8 % High 1-4 [facility] Comment on above: Performed By: #### S MAGDY #### [facility] [employer] [address] [place] [address] Mine Administrator Supervisor: Stas Irving MD Erythrocyte distribution width (RBC) [Ratio] 13.9 % Normal 11.8-14.4 [facility] Comment on above: Performed By: #### S MAGDY #### [address] [address] Mine Administrator Supervisor: Stas Irving MD Hematocrit (Bld) [Volume fraction] 50.9 % High 40.7-50.3 [facility] Comment on above: Performed By: #### S MAGDY #### [address] [address] Mine Administrator Supervisor: Stas Irving MD Hemoglobin (Bld) [Mass/Vol] 16.8 g/dL Normal 13.0-17.0 [facility] Comment on above: Performed By: #### S MAGDY #### [address] [address] Mine Administrator Supervisor: Stas Irving MD Immature granulocytes (Bld) [#/Vol] 1 % High 0 [facility] Comment on above: Performed By: #### S MAGDY #### [address] [address] Mine Administrator Supervisor: Stas Irving MD Lymphocytes (Bld) [#/Vol] 2.28 10*3/uL Normal 1.10-3.70 [facility] Comment on above: Performed By: #### S MAGDY #### [address] [address] Mine Administrator Supervisor: Stas Irving MD Lymphocytes/100 WBC (Bld) 32 % Normal 24-43 [facility] Comment on above: Performed By: #### S MAGDY #### [address] [address] Mine Administrator Supervisor: Stas Irving MD MCH (RBC) [Entitic mass] 28.6 pg Normal 25.2-33.5 [facility] Comment on above: Performed By: #### S TROKE #### [address] [address] Mine Administrator Supervisor: Stas Irving MD MCHC (RBC) [Mass/Vol] 33.0 g/dL Normal 28.4-34.8 [facility] Comment on above: Performed By: #### S TROKE #### [address] [address] Mine Administrator Supervisor: Stas Irving MD MCV (RBC) [Entitic vol] 86.6 fL Normal 82.6-102.9 [facility] Comment on above: Performed By: #### S TROKE #### [address] [address] Mine Administrator Supervisor: Stas Ivring MD Monocytes (Bld) [#/Vol] 0.79 10*3/uL Normal 0.10-1.20 [facility] Comment on above: Performed By: #### S TROKE #### [address] [address] Mine Administrator Supervisor: Stas Irving MD Monocytes/100 WBC (Bld) 11 % Normal 3-12 [facility] Comment on above: Performed By: #### S TROKE #### [address] [address] Mine Administrator Supervisor: Stas Irving MD Neutrophil (Seg) 47 % Normal 36-65 [facility] Comment on above: Performed By: #### S TROKE #### [address] [address] Mine Administrator Supervisor: Stas Irving MD NRBC Automated 0.3 per 100 WBC High 0.0 [facility] Comment on above: Performed By: #### S TROKE #### [address] [address] Mine Administrator Supervisor: Stas Irving MD Platelet mean volume (Bld) [Entitic vol] 12.0 fL Normal 8.1-13.5 [facility] Comment on above: Performed By: #### S TOREYKE #### [address] [address] Mine Administrator Supervisor: Stas Irving MD Platelets (Bld) [#/Vol] 285 10*3/uL Normal 138-453 [facility] Comment on above: Performed By: #### S TOREYKE #### [address] [address] Mine Administrator Supervisor: Stas Irving MD RBC (Bld) [#/Vol] 5.88 10*6/uL High 4.21-5.77 [facility] Comment on above: Performed By: #### S TOREYKE #### [address] [address] Mine Administrator Supervisor: Stas Irving MD WBC (Bld) [#/Vol] 7.1 10*3/uL Normal 3.5-11.3 [facility] Comment on above: Performed By: #### S MAGDY #### [address] [address] Mine Administrator Supervisor: Stas Irving MD Auto Diff Performed NOT REPORTED Normal [facility] Comment on above: Performed By: #### S TOREYKE #### [address] [address] Mine Administrator Supervisor: Stas Irving MD Platelets (Bld) [#/Vol] NOT REPORTED Normal [facility] Comment on above: Performed By: #### S TOREYKE #### [address] [address] Mine Administrator Supervisor: Stas Irving MD RBC morphology finding Nom (Bld) NOT REPORTED Normal [facility] Comment on above: Performed By: #### S MAGDY #### [address] [place] [place], [place] [id number] Mine Administrator Supervisor: Stas Irving MD WBC Morphology NOT REPORTED Normal [facility] Comment on above: Performed By: #### S MAGDY #### [facility] [address] [place] [address] Mine Administrator Supervisor: Stas Irving MD Magnesiumon 06-08-2019 Magnesium [Mass/Vol] 2.0 mg/dL Normal 1.6-2.6 [facility] Comment on above: Performed By: #### S TROKE #### [facility] [address] [place], [place] [id number] Mine Administrator Supervisor: Stas Irving MD Magnesium [Mass/Vol] 2.0 mg/dL 1.6 - 2 .6 mg/dL [place] POC Glucose Fingerstickon Glucose [Mass/Vol] 288 mg/dL High 75 - 110 mg/dL [place] Interpretation and review of laboratory results Abnormal [place] Glucose [Mass/Vol] 350 mg/dL High 75 - 110 mg/dL [place] Interpretation and review of laboratory results Abnormal [place] Glucose [Mass/Vol] 238 mg/dL High 75 - 110 mg/dL [place] Interpretation and review of laboratory results Abnormal [place] Glucose [Mass/Vol] 244 mg/dL High 75 - 110 mg/dL [place] Interpretation and review of laboratory results Abnormal [place] Phosphoruson 06-08-2019 Phosphate [Mass/Vol] 4.5 mg/dL 2.5 - 4 .5 mg/dL [place] Phosphorus, Inorg.on 019 Phosphorus, Inorg. 4.5 mg/dL Normal 2.5-4.5 [facility] Comment on above: Performed By: #### C DP, BMP, MG, CINTHYA ####[id number] [place], [place] [id number] Lab Director: Stas Irving MD VL DUP LOWER EXTREMITY VENOU S BILATERALon 06-08-2019 [facility] Vascular Lower Extremities DVT Study Procedure Patient Name LYDIA Date of Study 06/08/2019 EUNICE Alcantara Date of 1955 Gender Male Age 63 year(s) Race Black Room Number 0515 Height: 72 inch, 182.88 cm Corporate ID [id number] Weight: 220 pounds, 99.8 kg # Patient Acct [id number] BSA: 2.22 m^2 BMI: 29.84 kg/m^2 # MR # [id number] Production Control Analyst Rina Frausto Interpreting Omer Oneil Physician Referring Referring Physician DYLON VICK BRAND SALES MANAGER-ENVIRONMENTAL PROGRAMS SPECIALIST Nurse Practitioner Procedure Type of Study: Veins: [...] !Phasic! ! ! + -------+------+------ + + [facility]- [place], [place] Nav, Mhpn Incoming Cardio Results From Cpacs/Ge - 06/08/2019 6:36 PM EDT [facility] Vascular Lower Extremities DVT Study [facility] of Study 06/08/2019 EUNICE Alcantara Date of 1955 Gender Male Age 63 year(s) Race Black Room Number 0515 Height: 72 inch, 182.88 cm Corporate ID [id number] Weight: 220 pounds, 99.8 kg # Patient Acct [id number] BSA: 2.22 m^2 BMI: 29.84 kg/m^2 # MR # [id number] Production Control Analyst Rina Frausto Interpreting Omer Oneil Physician Referring Referring Physician DYLON VICK APRN-ENVIRONMENTAL PROGRAMS SPECIALIST Nurse Practitioner Procedure Type of Study: Veins: [...] !Phasic! ! ! + -------+------+------ + + [facility], [place] Basic Metabolic Panelon 05-22 Anion gap [Moles/Vol] 12 mmol/L 9 - 17 mmol/L [facility] Bun/Cre Ratio NOT REPORTED [facility] Calcium [Mass/Vol] 9.3 mg/dL 8.6 - 10. 4 mg/dL [facility] Chloride [Moles/Vol] 97 mmol/L Low 98 - 10 7 mmol/L [facility] CO2 [Moles/Vol] 26 mmol/L 20 - 31 mmol/L [facility] Creatinine [Mass/Vol] 0.76 mg/dL 0.7 - 1.2 mg/dL [facility] GFR >60 >60 mL/min [facility] [place] GFR Non- >60 >60 mL/min [facility] GFR/1.73 sq M predicted among non-blacks MDRD (S/P/Bld) [Vol rate/Area] NOT REPORTED [place] GFR/1.73 sq M predicted among non-blacks MDRD (S/P/Bld) [Vol rate/Area] [place] Comment on above: Average GFR for 60-6 9 years old: 85 mL/min/1.73sq m Chronic Kidney Disease: <60 mL/min/1.73sq m Kidney failure: <15 mL/min/1.73sq m eGFR calculated using average adult body mass. Additional eGFR calculator available at: http://www.[employer]/multiple_crcl_2012.htm Glucose [Mass/Vol] 232 mg/dL High 70 - 99 mg/dL [place] Potassium [Moles/Vol] 3.4 mmol/L Low 3.7 - 5.3 mmol/L [place] Sodium [Moles/Vol] 135 mmol/L 135 - 144 mmol/L [place] Urea nitrogen [Mass/Vol] 8 mg/dL 8 - 23 mg/dL [place] Basic Metabolic Profon 06-07 (cont.) Normal [facility] Comment on above: Result Comment: Aver age GFR for 60-69 years old: 85 mL/min/1.73sq m Chronic Kidney Disease: <60 mL/min/1.73sq m Kidney failure: <15 mL/min/1.73sq m eGFR calculated using average adult body mass. Additional eGFR calculator available at: http://www.[employer]/multiple_crcl_2012.htm Performed By: #### S TROKE #### [facility] [address] [place] [address] Mine Administrator Supervisor: Stas Irving MD Anion gap [Moles/Vol] 12 mmol/L Normal 05-08 [facility] Comment on above: Performed By: #### S TROKE #### [facility] [address] [place] [address] Mine Administrator Supervisor: Stas Irving MD Calcium [Mass/Vol] 9.3 mg/dL Normal 8.6-10.4 [facility] Comment on above: Performed By: #### S TROKE #### [facility] [address] [place] [address] Mine Administrator Supervisor: Stas Irving MD Chloride [Moles/Vol] 97 mmol/L Low 98-107 [facility] Comment on above: Performed By: #### S TROKE #### [facility] [address] [place] [address] Mine Administrator Supervisor: Stas Irving MD CO2 [Moles/Vol] 26 mmol/L Normal 20-31 [facility] Comment on above: Performed By: #### S TROKE #### [facility] [employer] [address] [place] [address] Mine Administrator Supervisor: Stas Irving MD Creatinine [Mass/Vol] 0.76 mg/dL Normal 0.70-1.20 [facility] Comment on above: Performed By: #### S TROKE #### [address] [address] Mine Administrator Supervisor: Stas Irving MD GFR, Amer >60 Normal >60 [facility] Comment on above: Performed By: #### S TROKE #### [facility] [employer] [address] [place] [address] Mine Administrator Supervisor: Stas Irving MD GFR,non Amer >60 Normal >60 [facility] Comment on above: Performed By: #### S TROKE #### [facility] [employer] [address] [place] [address] Mine Administrator Supervisor: Stas Irving MD Glucose [Mass/Vol] 232 mg/dL High 70-99 [facility] Comment on above: Performed By: #### S TROKE #### [facility] [employer] [address] [place] [address] Mine Administrator Supervisor: Stas Irving MD Potassium [Moles/Vol] 3.4 mmol/L Low 3.7-5.3 [facility] Comment on above: Performed By: #### S TROKE #### [facility] [address] [place] [address] Mine Administrator Supervisor: Stas Irving MD Sodium [Moles/Vol] 135 mmol/L Normal 135-144 [facility] Comment on above: Performed By: #### S TROKE #### [facility] [address] [place] [address] Mine Administrator Supervisor: Stas Irving MD Urea nitrogen [Mass/Vol] 8 mg/dL Normal 8- [facility] Comment on above: Performed By: #### S TROKE #### [facility] [employer] [address] [place] [address] Mine Administrator Supervisor: Stas Irving MD BUN/CRE Ratio NOT REPORTED Normal - [facility] Comment on above: Performed By: #### S TROKE #### [facility] [employer] [address] [place] [address] Mine Administrator Supervisor: Stas Irving MD Staging: NOT REPORTED Normal [facility] Comment on above: Performed By: #### S TROKE #### [facility] [employer] [address] [place] [address] Mine Administrator Supervisor: Stas Irving MD CBC Auto Differentialon 05-22 Basophils (Bld) [#/Vol] 0.08 10*3/uL [place] Basophils/100 WBC (Bld) 1 % 0 - 2 % [place] Differential Type NOT REPORTED [place] Eosinophils (Bld) [#/Vol] 0.59 10*3/uL High [place] Eosinophils/100 WBC (Bld) 8 % High 1 - 4 % [place] Erythrocyte distribution width (RBC) [Ratio] 13.6 % 11.8 - 14.4 % [place] Hematocrit (Bld) [Volume fraction] 51.5 % High 40.7 - 50.3 % [place] Hemoglobin (Bld) [Mass/Vol] 16.7 g/dL 13 - 17 g/dL [place] Immature granulocytes (Bld) [#/Vol] 0 % 0 [place] Immature granulocytes (Bld) [#/Vol] 10*3/uL [place] Interpretation and review of laboratory results Abnormal [place] Lymphocytes (Bld) [#/Vol] 2.32 10*3/uL [place] Lymphocytes/100 WBC (Bld) 32 % 24 - 43 % [place] MCH (RBC) [Entitic mass] 28.2 pg 25.2 - 33.5 pg [place] MCHC (RBC) [Mass/Vol] 32.4 g/dL 28.4 - 34.8 g/dL [place] MCV (RBC) [Entitic vol] 86.8 fL 82.6 - 102.9 fL [place] Monocytes (Bld) [#/Vol] 0.66 10*3/uL [place] Monocytes/100 WBC (Bld) 9 % 3 - 12 % [place] Platelet mean volume (Bld) [Entitic vol] 10.9 fL 8.1 - 13.5 fL [place] Platelets (Bld) [#/Vol] 196 10*3/uL [place] Platelets (Bld) [#/Vol] NOT REPORTED [place] RBC (Bld) [#/Vol] 5.93 10*6/uL High 4.21 - 5.7 7 m/uL [place] RBC morphology finding Nom (Bld) NOT REPORTED [place] Segmented neutrophils/100 WBC (Bld) 50 % 36 - 65 % [place] Segs Absolute 3.69 [place] WBC (Bld) [#/Vol] 7.4 10*3/uL [place] WBC (Bld) [#/Vol] 0.0 10*3/uL 0.0 per 10 0 WBC [place] WBC Morphology NOT REPORTED [place] CBC with Diffon 06-07-2019 Abs. Basophil 0.08 k/uL Normal 0.00-0.20 [facility] Comment on above: Performed By: #### S MAGDY #### [facility] [employer] [address] [place] [address] Mine Administrator Supervisor: Stas Irving MD Abs.Imm.Granulocyte <0.03 Normal 0.00-0.30 [facility] Comment on above: Performed By: #### S MAGDY #### [facility] [employer] [address] [place] [address] Mine Administrator Supervisor: Stas Irving MD Abs.Neutrophil (Seg) 3.69 k/uL Normal 1.50-8.10 [facility] Comment on above: Performed By: #### S MAGDY #### [facility] [employer] [address] [place] [address] Mine Administrator Supervisor: Stas Irving MD Basophils/100 WBC (Bld) 1 % Normal 0-2 [facility] Comment on above: Performed By: #### S MAGDY #### [facility] [employer] [address] [place] [address] Mine Administrator Supervisor: Stas Irving MD Eosinophils (Bld) [#/Vol] 0.59 10*3/uL High 0.00-0.44 [facility] Comment on above: Performed By: #### S TOREYKE #### [facility] [employer] [address] [place] [address] Mine Administrator Supervisor: Stas Irving MD Eosinophils/100 WBC (Bld) 8 % High 1-4 [facility] Comment on above: Performed By: #### S TOREYKE #### [facility] [employer] [address] [place] [address] Mine Administrator Supervisor: Stas Irving MD Erythrocyte distribution width (RBC) [Ratio] 13.6 % Normal 11.8-14.4 [facility] Comment on above: Performed By: #### S MAGDY #### [address] [address] Mine Administrator Supervisor: Stas Irving MD Hematocrit (Bld) [Volume fraction] 51.5 % High 40.7-50.3 [facility] Comment on above: Performed By: #### S MAGDY #### [address] [address] Mine Administrator Supervisor: Stas Irving MD Hemoglobin (Bld) [Mass/Vol] 16.7 g/dL Normal 13.0-17.0 [facility] Comment on above: Performed By: #### S MAGDY #### [address] [address] Mine Administrator Supervisor: Stas Irving MD Immature granulocytes (Bld) [#/Vol] 0 % Normal 0 [facility] Comment on above: Performed By: #### S MAGDY #### [address] [address] Mine Administrator Supervisor: Stas Irving MD Lymphocytes (Bld) [#/Vol] 2.32 10*3/uL Normal 1.10-3.70 [facility] Comment on above: Performed By: #### S MAGDY #### [address] [address] Mine Administrator Supervisor: Stas Irving MD Lymphocytes/100 WBC (Bld) 32 % Normal 24-43 [facility] Comment on above: Performed By: #### S MAGDY #### [address] [address] Mine Administrator Supervisor: Stas Irving MD MCH (RBC) [Entitic mass] 28.2 pg Normal 25.2-33.5 [facility] Comment on above: Performed By: #### S TROKE #### [address] [address] Mine Administrator Supervisor: Stas Irving MD MCHC (RBC) [Mass/Vol] 32.4 g/dL Normal 28.4-34.8 [facility] Comment on above: Performed By: #### S TROKE #### [address] [address] Mine Administrator Supervisor: Stas Irving MD MCV (RBC) [Entitic vol] 86.8 fL Normal 82.6-102.9 [facility] Comment on above: Performed By: #### S TROKE #### [address] [address] Mine Administrator Supervisor: Stas Irving MD Monocytes (Bld) [#/Vol] 0.66 10*3/uL Normal 0.10-1.20 [facility] Comment on above: Performed By: #### S TROKE #### [address] [address] Mine Administrator Supervisor: Stas Irving MD Monocytes/100 WBC (Bld) 9 % Normal 3-12 [facility] Comment on above: Performed By: #### S TROKE #### [address] [address] Mine Administrator Supervisor: Stas Irving MD Neutrophil (Seg) 50 % Normal 36-65 [facility] Comment on above: Performed By: #### S TROKE #### [address] [address] Mine Administrator Supervisor: Stas Irving MD NRBC Automated 0.0 per 100 WBC Normal 0.0 [facility] Comment on above: Performed By: #### S TROKE #### [address] [address] Mine Administrator Supervisor: Stas Irving MD Platelet mean volume (Bld) [Entitic vol] 10.9 fL Normal 8.1-13.5 [facility] Comment on above: Performed By: #### S TOREYKE #### [address] [address] Mine Administrator Supervisor: Stas Irving MD Platelets (Bld) [#/Vol] 196 10*3/uL Normal 138-453 [facility] Comment on above: Performed By: #### S TOREYKE #### [address] [address] Mine Administrator Supervisor: Stas Irving MD RBC (Bld) [#/Vol] 5.93 10*6/uL High 4.21-5.77 [facility] Comment on above: Performed By: #### S TOREYKE #### [address] [address] Mine Administrator Supervisor: Stas Irving MD WBC (Bld) [#/Vol] 7.4 10*3/uL Normal 3.5-11.3 [facility] Comment on above: Performed By: #### S MAGDY #### [address] [address] Mine Administrator Supervisor: Stas Irving MD Auto Diff Performed NOT REPORTED Normal [facility] Comment on above: Performed By: #### S TOREYKE #### [address] [address] Mine Administrator Supervisor: Stas Irving MD Platelets (Bld) [#/Vol] NOT REPORTED Normal [facility] Comment on above: Performed By: #### S TOREYKE #### [address] [address] Mine Administrator Supervisor: Stas Irving MD RBC morphology finding Nom (Bld) NOT REPORTED Normal [facility] Comment on above: Performed By: #### S TROKE #### [address] [address] [place] [address] Mine Administrator Supervisor: Stas Irving MD WBC Morphology NOT REPORTED Normal [facility] Comment on above: Performed By: #### S TROKASI #### [address] [place] [address] Mine Administrator Supervisor: Stas Irving MD CT HEAD WO [...] Randolph Bustos MD 06/06/19 Final result Normal [facility] MAGNESIUMon 06-07-2019 Magnesium [Mass/Vol] 1.9 mg/dL 1.6 - 2 .6 mg/dL [facility], [place] MRI BRAIN WO CONTRASTon 05-22 MRI BRAIN [...] Cas Berger MD 06/07/19 Final result Normal [facility] MRI Brain WO Contraston 05-22 1. [...] 06/07/2019to be communicated to a licensed caregiver. [place], [place] EXAMINATION: MRI OF THE BRAIN WITHOUT CONTRAST [...] the left. BONES/SOFT TISSUES: No significant abnormalities. [place], [place] Nav, pn Incoming Radiant Results From [employer] - 06/07/2019 11:19 AM EDT EXAMINATION: MRI [...] 06/07/2019to be communicated to a licensed caregiver. [place] Magnesiumon 06-07-2019 Magnesium [Mass/Vol] 1.9 mg/dL Normal 1.6-2.6 [facility] Comment on above: Performed By: #### S MAGDY #### [place] [address] Mine Administrator Supervisor: Stas Irving MD Otheron 06-07-2019 Interpretation and review of laboratory results Abnormal [place] PHOSPHORUSon 06-07-2019 Phosphate [Mass/Vol] 5.4 mg/dL High 2.5 - 4 .5 mg/dL [place], [place] POC Glucose Fingerstickon Glucose [Mass/Vol] 309 mg/dL High 75 - 110 mg/dL [place], [place] Interpretation and review of laboratory results Abnormal [place], [place] Glucose [Mass/Vol] 330 mg/dL High 75 - 110 mg/dL [place] Interpretation and review of laboratory results Abnormal [place], [place] Glucose [Mass/Vol] 251 mg/dL High 75 - 110 mg/dL [place] Interpretation and review of laboratory results Abnormal [place] Glucose [Mass/Vol] 273 mg/dL High 75 - 110 mg/dL [place] Interpretation and review of laboratory results Abnormal [place], [place] Phosphorus, Inorg.on 019 Phosphorus, Inorg. 5.4 mg/dL High 2.5-4.5 [facility] Comment on above: Performed By: #### S TROKE #### [facility] [employer] [facility] [place] [address] Mine Administrator Supervisor: Stas Irving MD BASIC METABOLIC PANEL 05-22 Anion gap [Moles/Vol] 16 mmol/L 9 - 17 mmol/L [place] Bun/Cre Ratio NOT REPORTED [place] Calcium [Mass/Vol] 9.2 mg/dL 8.6 - 10. 4 mg/dL [place] Chloride [Moles/Vol] 101 mmol/L 98 - 10 7 mmol/L [place] CO2 [Moles/Vol] 20 mmol/L 20 - 31 mmol/L [place] Creatinine [Mass/Vol] 0.48 mg/dL Low 0.7 - 1.2 mg/dL [place] GFR >60 >60 mL/min [place] GFR Non- >60 >60 mL/min [place] GFR/1.73 sq M predicted among non-blacks MDRD (S/P/Bld) [Vol rate/Area] NOT REPORTED [place] GFR/1.73 sq M predicted among non-blacks MDRD (S/P/Bld) [Vol rate/Area] [place] Comment on above: Average GFR for 60-6 9 years old: 85 mL/min/1.73sq m Chronic Kidney Disease: <60 mL/min/1.73sq m Kidney failure: <15 mL/min/1.73sq m eGFR calculated using average adult body mass. Additional eGFR calculator available at: http://www.[employer]/multiple_crcl_2012.htm Glucose [Mass/Vol] 264 mg/dL High 70 - 99 mg/dL [place] Potassium [Moles/Vol] 3.9 mmol/L 3.7 - 5.3 mmol/L [place] Sodium [Moles/Vol] 137 mmol/L 135 - 144 mmol/L [place] Urea nitrogen [Mass/Vol] 5 mg/dL Low 8 - 23 mg/dL [place] Basic Metabolic Profon 06-06 (cont.) Normal [facility] Comment on above: Result Comment: Aver age GFR for 60-69 years old: 85 mL/min/1.73sq m Chronic Kidney Disease: <60 mL/min/1.73sq m Kidney failure: <15 mL/min/1.73sq m eGFR calculated using average adult body mass. Additional eGFR calculator available at: http://www.[employer]/multiple_crcl_2012.htm Performed By: #### C DP, BMP, LIPR, MG, CINTHYA, GLYHGB #### [employer] [address] [place] [address] [phone] Mine Administrator Supervisor: Stas Irving MD Anion gap [Moles/Vol] 16 mmol/L Normal 9-17 [facility] Comment on above: Performed By: #### C DP, BMP, LIPR, MG, CINTHYA, GLYHGB #### [employer] [address] [place] [address] [phone] Mine Administrator Supervisor: Stas Irving MD Calcium [Mass/Vol] 9.2 mg/dL Normal 8.6-10.4 [facility] Comment on above: Performed By: #### C DP, BMP, LIPR, MG, CINTHYA, GLYHGB #### [employer] [address] [place] [address] [phone] Mine Administrator Supervisor: Stas Irving MD Chloride [Moles/Vol] 101 mmol/L Normal 98-107 [facility] Comment on above: Performed By: #### C DP, BMP, LIPR, MG, CINTHYA, GLYHGB #### [address] [address] Mine Administrator Supervisor: Stas Irving MD CO2 [Moles/Vol] 20 mmol/L Normal 20-31 [facility] Comment on above: Performed By: #### C DP, BMP, LIPR, MG, CINTHYA, GLYHGB #### [address] [address] Mine Administrator Supervisor: Stas Irving MD Creatinine [Mass/Vol] 0.48 mg/dL Low 0.70-1.20 [facility] Comment on above: Performed By: #### C DP, BMP, LIPR, MG, CINTHYA, GLYHGB #### [address] [address] Mine Administrator Supervisor: Stas Irving MD GFR, Amer >60 Normal >60 [facility] Comment on above: Performed By: #### C DP, BMP, LIPR, MG, CINTHYA, GLYHGB #### [address] [address] Mine Administrator Supervisor: Stas Irving MD GFR,non Amer >60 Normal >60 [facility] Comment on above: Performed By: #### C DP, BMP, LIPR, MG, CINTHYA, GLYHGB #### [address] [address] Mine Administrator Supervisor: Stas Irving MD Glucose [Mass/Vol] 264 mg/dL High 70-99 [facility] Comment on above: Performed By: #### C DP, BMP, LIPR, MG, CINTHYA, GLYHGB #### [address] [address] Mine Administrator Supervisor: Stas Irving MD Potassium [Moles/Vol] 3.9 mmol/L Normal 3.7-5.3 [facility] Comment on above: Performed By: #### C DP, BMP, LIPR, MG, CINTHYA, GLYHGB #### [facility] [employer] [address] [place] [address] Mine Administrator Supervisor: Stas Irving MD Sodium [Moles/Vol] 137 mmol/L Normal 135-144 [facility] Comment on above: Performed By: #### C DP, BMP, LIPR, MG, CINTHYA, GLYHGB #### [facility] [employer] [address] [place] [address] Mine Administrator Supervisor: Stas Irving MD Urea nitrogen [Mass/Vol] 5 mg/dL Low 8-23 [facility] Comment on above: Performed By: #### C DP, BMP, LIPR, MG, CINTHYA, GLYHGB #### [facility] [employer] [address] [place] [address] Mine Administrator Supervisor: Stas Irving MD BUN/CRE Ratio NOT REPORTED Normal - [facility] Comment on above: Performed By: #### C DP, BMP, LIPR, MG, CINTHYA, GLYHGB #### [facility] [employer] [address] [place] [address] Mine Administrator Supervisor: Stas Irving MD Staging: NOT REPORTED Normal [facility] Comment on above: Performed By: #### C DP, BMP, LIPR, MG, CINTHYA, GLYHGB #### [facility] [employer] [address] [place] [address] Mine Administrator Supervisor: Stas Irving MD CBC WITH AUTO DIFFERENTIALon 06-06-2019 Basophils (Bld) [#/Vol] 0.08 10*3/uL [place] Basophils/100 WBC (Bld) 1 % 0 - 2 % [place] Differential Type NOT REPORTED [place] Eosinophils (Bld) [#/Vol] 0.62 10*3/uL High [place] Eosinophils/100 WBC (Bld) 9 % High 1 - 4 % [place] Erythrocyte distribution width (RBC) [Ratio] 13.8 % 11.8 - 14.4 % [place] Hematocrit (Bld) [Volume fraction] 49.9 % 40.7 - 50.3 % [place] Hemoglobin (Bld) [Mass/Vol] 16.4 g/dL 13 - 17 g/dL [place] Immature granulocytes (Bld) [#/Vol] 10*3/uL [place] Immature granulocytes (Bld) [#/Vol] 0 % 0 [place] Interpretation and review of laboratory results Abnormal [place] Lymphocytes (Bld) [#/Vol] 2.13 10*3/uL [place] Lymphocytes/100 WBC (Bld) 29 % 24 - 43 % [place] MCH (RBC) [Entitic mass] 28.6 pg 25.2 - 33.5 pg [place] MCHC (RBC) [Mass/Vol] 32.9 g/dL 28.4 - 34.8 g/dL [place] MCV (RBC) [Entitic vol] 86.9 fL 82.6 - 102.9 fL [place] Monocytes (Bld) [#/Vol] 0.62 10*3/uL [place] Monocytes/100 WBC (Bld) 9 % 3 - 12 % [place] Platelet mean volume (Bld) [Entitic vol] 10.1 fL 8.1 - 13.5 fL [place] Platelets (Bld) [#/Vol] 221 10*3/uL [place] Platelets (Bld) [#/Vol] NOT REPORTED [place] RBC (Bld) [#/Vol] 5.74 10*6/uL 4.21 - 5.7 7 m/uL [place] RBC morphology finding Nom (Bld) NOT REPORTED [place] Segmented neutrophils/100 WBC (Bld) 52 % 36 - 65 % [place] Segs Absolute 3.86 [place] WBC (Bld) [#/Vol] 0.0 10*3/uL 0.0 per 10 0 WBC [place] WBC (Bld) [#/Vol] 7.3 10*3/uL [place] WBC Morphology NOT REPORTED [place] CBC with Diffon 06-06-2019 Abs. Basophil 0.08 k/uL Normal 0.00-0.20 [facility] Comment on above: Performed By: #### C DP, BMP, LIPR, MG, CINTHYA, GLYHGB #### [address] [address] Mine Administrator Supervisor: Stas Irving MD Abs.Imm.Granulocyte <0.03 Normal 0.00-0.30 [facility] Comment on above: Performed By: #### C DP, BMP, LIPR, MG, CINTHYA, GLYHGB #### [facility] [employer] [address] [place] [address] Mine Administrator Supervisor: Stas Irving MD Abs.Neutrophil (Seg) 3.86 k/uL Normal 1.50-8.10 [facility] Comment on above: Performed By: #### C DP, BMP, LIPR, MG, CINTHYA, GLYHGB #### [facility] [employer] [address] [place] [address] Mine Administrator Supervisor: Stas Irving MD Basophils/100 WBC (Bld) 1 % Normal 0-2 [facility] Comment on above: Performed By: #### C DP, BMP, LIPR, MG, CINTHYA, GLYHGB #### [facility] [employer] [address] [place] [address] Mine Administrator Supervisor: Stas Irving MD Eosinophils (Bld) [#/Vol] 0.62 10*3/uL High 0.00-0.44 [facility] Comment on above: Performed By: #### C DP, BMP, LIPR, MG, CINTHYA, GLYHGB #### [facility] [employer] [address] [place] [address] Mine Administrator Supervisor: Stas Irving MD Eosinophils/100 WBC (Bld) 9 % High 1-4 [facility] Comment on above: Performed By: #### C DP, BMP, LIPR, MG, CINTHYA, GLYHGB #### [address] [address] Mine Administrator Supervisor: Stas Irving MD Erythrocyte distribution width (RBC) [Ratio] 13.8 % Normal 11.8-14.4 [facility] Comment on above: Performed By: #### C DP, BMP, LIPR, MG, CINTHYA, GLYHGB #### [place] [address] Mine Administrator Supervisor: Stas Irving MD Hematocrit (Bld) [Volume fraction] 49.9 % Normal 40.7-50.3 [facility] Comment on above: Performed By: #### C DP, BMP, LIPR, MG, CINTHYA, GLYHGB #### [place] [address] Mine Administrator Supervisor: Stas Irving MD Hemoglobin (Bld) [Mass/Vol] 16.4 g/dL Normal 13.0-17.0 [facility] Comment on above: Performed By: #### C DP, BMP, LIPR, MG, CINTHYA, GLYHGB #### [facility] [employer] [address] [place] [address] Mine Administrator Supervisor: Stas Irving MD Immature granulocytes (Bld) [#/Vol] 0 % Normal 0 [facility] Comment on above: Performed By: #### C DP, BMP, LIPR, MG, CINTHYA, GLYHGB #### [facility] [employer] [address] [place] [address] Mine Administrator Supervisor: Stas Irving MD Lymphocytes (Bld) [#/Vol] 2.13 10*3/uL Normal 1.10-3.70 [facility] Comment on above: Performed By: #### C DP, BMP, LIPR, MG, CINTHYA, GLYHGB #### [address] [address] Mine Administrator Supervisor: Stas Irving MD Lymphocytes/100 WBC (Bld) 29 % Normal 24-43 [facility] Comment on above: Performed By: #### C DP, BMP, LIPR, MG, CINTHYA, GLYHGB #### [place] [address] Mine Administrator Supervisor: Stas Irving MD MCH (RBC) [Entitic mass] 28.6 pg Normal 25.2-33.5 [facility] Comment on above: Performed By: #### C DP, BMP, LIPR, MG, CINTHYA, GLYHGB #### [place] [address] Mine Administrator Supervisor: Stas Irving MD MCHC (RBC) [Mass/Vol] 32.9 g/dL Normal 28.4-34.8 [facility] Comment on above: Performed By: #### C DP, BMP, LIPR, MG, CINTHYA, GLYHGB #### [place] [address] Mine Administrator Supervisor: Stas Irving MD MCV (RBC) [Entitic vol] 86.9 fL Normal 82.6-102.9 [facility] Comment on above: Performed By: #### C DP, BMP, LIPR, MG, CINTHYA, GLYHGB #### [place] [address] Mine Administrator Supervisor: Stas Irving MD Monocytes (Bld) [#/Vol] 0.62 10*3/uL Normal 0.10-1.20 [facility] Comment on above: Performed By: #### C DP, BMP, LIPR, MG, CINTHYA, GLYHGB #### [address] [address] Mine Administrator Supervisor: Stas Irving MD Monocytes/100 WBC (Bld) 9 % Normal 3-12 [facility] Comment on above: Performed By: #### C DP, BMP, LIPR, MG, CINTHYA, GLYHGB #### [address] [address] Mine Administrator Supervisor: Stas Irving MD Neutrophil (Seg) 52 % Normal 36-65 [facility] Comment on above: Performed By: #### C DP, BMP, LIPR, MG, CINTHYA, GLYHGB #### [address] [address] Mine Administrator Supervisor: Stas Irving MD NRBC Automated 0.0 per 100 WBC Normal 0.0 [facility] Comment on above: Performed By: #### C DP, BMP, LIPR, MG, CINTHYA, GLYHGB #### [address] [address] Mine Administrator Supervisor: Stas Irving MD Platelet mean volume (Bld) [Entitic vol] 10.1 fL Normal 8.1-13.5 [facility] Comment on above: Performed By: #### C DP, BMP, LIPR, MG, CINTHYA, GLYHGB #### [address] [address] Mine Administrator Supervisor: Stas Irving MD Platelets (Bld) [#/Vol] 221 10*3/uL Normal 138-453 [facility] Comment on above: Performed By: #### C DP, BMP, LIPR, MG, CINTHYA, GLYHGB #### [address] [address] Mine Administrator Supervisor: Stas Irving MD RBC (Bld) [#/Vol] 5.74 10*6/uL Normal 4.21-5.77 [facility] Comment on above: Performed By: #### C DP, BMP, LIPR, MG, CINTHYA, GLYHGB #### [address] [address] Mine Administrator Supervisor: Stas Irving MD WBC (Bld) [#/Vol] 7.3 10*3/uL Normal 3.5-11.3 [facility] Comment on above: Performed By: #### C DP, BMP, LIPR, MG, CINTHYA, GLYHGB #### [address] [address] Mine Administrator Supervisor: Stas Irving MD Auto Diff Performed NOT REPORTED Normal [facility] Comment on above: Performed By: #### C DP, BMP, LIPR, MG, CINTHYA, GLYHGB #### [address] [address] Mine Administrator Supervisor: Stas Irving MD Platelets (Bld) [#/Vol] NOT REPORTED Normal [facility] Comment on above: Performed By: #### C DP, BMP, LIPR, MG, CINTHYA, GLYHGB #### [address] [address] Mine Administrator Supervisor: Stas Irving MD RBC morphology finding Nom (Bld) NOT REPORTED Normal [facility] Comment on above: Performed By: #### C DP, BMP, LIPR, MG, CINTHYA, GLYHGB #### [address] [address] Mine Administrator Supervisor: Stas Irving MD WBC Morphology NOT REPORTED Normal [facility] Comment on above: Performed By: #### C DP, BMP, LIPR, MG, CINTHYA, GLYHGB #### [facility] [employer] [address] [place] [address] Mine Administrator Supervisor: Stas Irving MD CT HEAD WO [...] C Goyal MD 06/05/19 Final result Normal [facility] CT head without contraston 1 Nav, [facility] Incoming Radiant Results From [employer] - 06/06/2019 10:31 PM EDT EXAMINATION: CT [...] effect. 3. Redemonstration of multifocal remote infarcts. [place], [place] EXAMINATION: CT OF THE HEAD WITHOUT [...] interface is intact. No acute intracranial hemorrhage. [place] 1. No evidence of an acute evolving infarct. 2. No acute intracranial hemorrhage or global mass effect. 3. Redemonstration of multifocal remote infarcts. [place] CTA HEAD W CON AND CTA [...] C Goyal MD 06/05/19 Final result Normal [facility] EKG 12 Leadon 06-06-2019 Atrial Rate 81 BPM [facility], [place] P [place] 67 degrees [facility] [place] P-R Interval 174 ms [facility] [place] Q-T Interval 378 ms [facility] QRS Duration 90 ms [facility] QTc Calculation (Bazett) 439 ms [facility] R [place] -15 degrees [place], [place] T [place] 24 degrees [place] Ventricular Rate 81 BPM [place] Normal sinus rhythm Nonspecific T wave abnormality Abnormal ECG No previous ECGs available [place], [place] Nav, [employer] Incoming Ekg Results From [employer] - 06/06/2019 9:23 AM EDT Normal sinus rhythm Nonspecific T wave abnormality Abnormal ECG No previous ECGs available [place] Hemoglobin A1Con 06-06-2019 HbA1c (Bld) [Mass fraction] 306 mg/dL Normal [facility] Comment on above: Result Comment: The ADA and AACC recommend providing the estimated average glucose result to permit better patient understanding of their HBA1c result. Performed By: #### C DP, BMP, LIPR, MG, CINTHYA, GLYHGB #### [facility] [employer] [facility] [place], [place] [phone] Mine Administrator Supervisor: Stas Irving MD HbA1c (Bld) [Mass fraction] 12.3 % High 4.0-6.0 [facility] Comment on above: Performed By: #### C DP, BMP, LIPR, MG, CINTHYA, GLYHGB #### [facility] [employer] [address] [place] [address] [phone] Mine Administrator Supervisor: Stas Irving MD Glucose [Mass/Vol] 306 mg/dL [place] Comment on above: The ADA and AACC rec ommend providing the estimated average glucose result to permit better patient understanding of their HBA1c result. HbA1c (Bld) [Mass fraction] 12.3 % High 4 - 6 % [place] Interpretation and review of laboratory results Abnormal [place] LIPID PANELon 06-06-2019 Cholesterol [Mass/Vol] 294 mg/dL High <200 [place] Comment on above: Cholesterol Guidelines: <200 Desirable 200-240 Borderline >240 Undesirable Cholesterol in HDL [Mass/Vol] 38 mg/dL Low >40 [place] Comment on above: HDL Guidelines: <40 Undesirable 40-59 Borderline >59 Desirable Cholesterol in LDL [Mass/Vol] 216 mg/dL High 0 - 130 mg/dL [place] Comment on above: LDL Guidelines: <100 Desirable 100-129 Near to/above Desirable 130-159 Borderline >159 Undesirable Direct (measured) LDL and calculated LDL are not interchangeable tests. Cholesterol in VLDL [Mass/Vol] NOT REPORTED High 1 - 30 mg/dL [place] Cholesterol.total/Cho lesterol in HDL [Mass ratio] 7.7 {ratio} High <5 [place] Triglyceride [Mass/Vol] 200 mg/dL High <150 [place] Comment on above: Triglyceride Guidelines: <150 Desirable 150-199 Borderline 200-499 High >499 Very high Based on AHA Guidelines for fasting triglyceride, May 2012. Lipid Profileon 06-06-2019 Cholesterol [Mass/Vol] 294 mg/dL High <200 [facility] Comment on above: Result Comment: Cholesterol Guidelines: <200 Desirable 200-240 Borderline >240 Undesirable Performed By: #### C DP, BMP, LIPR, MG, CINTHYA, GLYHGB #### [facility] [employer] [address] [place] [address] [phone] Mine Administrator Supervisor: Stas Irving MD Cholesterol in HDL [Mass/Vol] 38 mg/dL Low >40 [facility] Comment on above: Result Comment: HDL Guidelines: <40 Undesirable 40-59 Borderline >59 Desirable Performed By: #### C DP, BMP, LIPR, MG, CINTHYA, GLYHGB #### [facility] [employer] [address] [place] [address] [phone] Mine Administrator Supervisor: Stas Irving MD Cholesterol in LDL [Mass/Vol] 216 mg/dL High 0-130 [facility] Comment on above: Result Comment: LDL Guidelines: <100 Desirable 100-129 Near to/above Desirable 130-159 Borderline >159 Undesirable Direct (measured) LDL and calculated LDL are not interchangeable tests. Performed By: #### C DP, BMP, LIPR, MG, CINTHYA, GLYHGB #### [facility] [employer] [address] [place], [place] [phone] Mine Administrator Supervisor: Stas Irving MD Cholesterol.total/Cho lesterol in HDL [Mass ratio] 7.7 {ratio} High <5 [facility] Comment on above: Performed By: #### C DP, BMP, LIPR, MG, CINTHYA, GLYHGB #### [facility] [employer] [facility] [place], [place] [phone] Mine Administrator Supervisor: Stas Irving MD Triglyceride [Mass/Vol] 200 mg/dL High <150 [facility] Comment on above: Result Comment: Triglyceride Guidelines: <150 Desirable 150-199 Borderline 200-499 High >499 Very high Based on AHA Guidelines for fasting triglyceride, May 2012. Performed By: #### C DP, BMP, LIPR, MG, CINTHYA, GLYHGB #### [facility] [employer] [address] [place] [address] [phone] Mine Administrator Supervisor: Stas Irving MD Cholesterol in VLDL [Mass/Vol] NOT REPORTED Normal 09-20 [facility] Comment on above: Performed By: #### C DP, BMP, LIPR, MG, CINTHYA, GLYHGB #### [facility] [employer] [address] [place] [phone] Mine Administrator Supervisor: Stas Irving MD MAGNESIUMon 06-06-2019 Magnesium [Mass/Vol] 2.0 mg/dL 1.6 - 2 .6 mg/dL [place], [place] MRSA DNA Probe, Nasalon 05-22 MRSA, DNA, Nasal NEGATIVE: MRSA DNA not detected by nucleic acid amplification. NEGATIVE: MRSA DNA not detected by nucleic acid amplificati [place] Comment on above: Results should be used as an adjunct to nosocomial control efforts to identify patients needing enhanced precautions. The test is not intended to identify patients with staphylococcal infections. Results should not be used to guide or monitor treatment for MRSA infections. Specimen Description .NASAL SWAB [place] MRSA, DNA, Nasalon 9 MRSA, DNA, Nasal NEGATIVE: MRSA DNA not detected by nucleic acid amplification. Normal NMRSAA [facility] Comment on above: Result Comment: Results should be used as an adjunct to nosocomial control efforts to identify patients needing enhanced precautions. The test is not intended to identify patients with staphylococcal infections. Results should not be used to guide or monitor treatment for MRSA infections. Performed By: #### S MAGDY #### [facility] [address] [place] [address] Mine Administrator Supervisor: Stas Irving MD Specimen Description .NASAL SWAB Normal [facility] Comment on above: Performed By: #### S TOREYKE #### [facility] [address] [place], [place] [phone] Mine Administrator Supervisor: Stas Irving MD Magnesiumon 06-06-2019 Magnesium [Mass/Vol] 2.0 mg/dL Normal 1.6-2.6 [facility] Comment on above: Performed By: #### C DP, BMP, LIPR, MG, CINTHYA, GLYHGB #### [facility] [address] [place] [address] Mine Administrator Supervisor: Stas Irving MD Otheron 06-06-2019 Interpretation and review of laboratory results Abnormal [place] PHOSPHORUSon 06-06-2019 Phosphate [Mass/Vol] 3.2 mg/dL 2.5 - 4 .5 mg/dL [place], [place] POC Glucose Fingerstickon Glucose [Mass/Vol] 315 mg/dL High 75 - 110 mg/dL [place], [place] Interpretation and review of laboratory results Abnormal [place], [place] Glucose [Mass/Vol] 310 mg/dL High 75 - 110 mg/dL [place] Interpretation and review of laboratory results Abnormal [place] Glucose [Mass/Vol] 257 mg/dL High 75 - 110 mg/dL [place] Interpretation and review of laboratory results Abnormal [place], [place] Glucose [Mass/Vol] 265 mg/dL High 75 - 110 mg/dL [place], [place] Interpretation and review of laboratory results Abnormal [place] Glucose [Mass/Vol] 211 mg/dL High 75 - 110 mg/dL [place], [place] Interpretation and review of laboratory results Abnormal [place], [place] POCT glucoseon 06-06-2019 Glucose [Mass/Vol] 211 mg/dL [place] Interpretation and review of laboratory results Normal [place], [place] Phosphorus, Inorg.on 019 Phosphorus, Inorg. 3.2 mg/dL Normal 2.5-4.5 [facility] Comment on above: Performed By: #### C DP, BMP, LIPR, MG, CINTHYA, GLYHGB #### [facility] [employer] [facility] [place] [id number] Mine Administrator Supervisor: Stas Irving MD Anion Gap (Calc) POCon 06-05 Anion gap [Moles/Vol] 10 mmol/L 7 - 16 mmol/L [place], [place] CALCIUM, IONIC (POC)on 06-05 POC Ionized Calcium 1.18 mmol/L 1.15 - 1 .33 mmol/L [place] CHLORIDE (POC)on 06-05-2019 Chloride [Moles/Vol] 99 mmol/L 98 - 10 7 mmol/L [place], [place] CT Head WO Contraston 2018 EXAMINATION: [...] of the visualized skull or soft tissues. [place], [place] Nav, Mhpn Incoming Radiant Results From [employer] - 06/05/2019 10:17 PM EDT EXAMINATION: CT [...] Discussed with Dr. Son at 10:14 p.m.. [place] No acute intracrania l abnormality. 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 Pansinusitis. RECOMMENDATIONS: The findings were sent to the Radiology Results Communication Center at 10:13 pm on 06/05/2019to be communicated to a licensed caregiver. Discussed with Dr. Son at 10:14 p.m.. [place] CTA HEAD NECK W CONTRASTon 1 Nav, [facility] Incoming Radiant Results From [employer] - 06/05/2019 10:57 PM EDT EXAMINATION: CTA [...] discussed with Dr. Son at 10:50 p.m.. 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 Otherwise negative CTA of the head and neck. RECOMMENDATIONS: The findings were sent to the Radiology Results Communication Center at 10:48 pm on 06/05/2019to be communicated to a licensed caregiver. Case discussed with Dr. Son at 10:50 p.m.. [place] EXAMINATION: CTA OF THE HEAD AND [...] bilateral remote basal ganglia infarcts again noted. [place] Creatinine W/GFR Point of Ca reon 06-05-2019 Creatinine [Mass/Vol] 0.77 mg/dL 0.51 - 1.19 mg/dL [place] GFR Non- >60 >60 mL/min [place] GFR/1.73 sq M predicted among non-blacks MDRD (S/P/Bld) [Vol rate/Area] mL/min/{1.73_m2} >60 mL/min [place] GFR/1.73 sq M predicted among non-blacks MDRD (S/P/Bld) [Vol rate/Area] [place] Comment on above: Average GFR for 60-6 9 years old: 85 mL/min/1.73sq m Chronic Kidney Disease: <60 mL/min/1.73sq m Kidney failure: <15 mL/min/1.73sq m eGFR calculated using average adult body mass. Additional eGFR calculator available at: http://www.[employer]/multiple_crcl_2012.htm Hemoglobin and hematocrit, b loodon 06-05-2019 Hematocrit (Bld) [Volume fraction] 47 % 41 - 53 % [place] Hemoglobin (Bld) [Mass/Vol] 16.0 g/dL 13.5 - 17.5 g/dL [place], [place] Lactic Acid, POCon 9 POC Lactic Acid 1.62 mmol/L High 0.56 - 1.39 mmol/L [place], [place] Otheron 06-05-2019 Interpretation and review of laboratory results Abnormal [place], [place] POC Glucose Fingerstickon Glucose [Mass/Vol] 315 mg/dL High 75 - 110 mg/dL [place], [place] Interpretation and review of laboratory results Abnormal [place] POCT Glucoseon 06-05-2019 Glucose [Mass/Vol] 344 mg/dL High 74 - 100 mg/dL [place] POTASSIUM (POC)on 06-05-2019 Potassium [Moles/Vol] 3.9 mmol/L 3.5 - 4.5 mmol/L [place] SODIUM (POC)on 06-05-2019 Sodium [Moles/Vol] 136 mmol/L Low 138 - 146 mmol/L [place] STROKE PANELon 06-05-2019 % CKMB 2.4 % 0 - 3.5 % [place] Anion gap [Moles/Vol] 12 mmol/L 9 - 17 mmol/L [place] aPTT Coag (Bld) [Time] 26.4 s [place] Basophils (Bld) [#/Vol] 0.06 10*3/uL [place] Basophils/100 WBC (Bld) 1 % 0 - 2 % [place] Bun/Cre Ratio NOT REPORTED [place] Calcium [Mass/Vol] 9.7 mg/dL 8.6 - 10. 4 mg/dL [place] Chloride [Moles/Vol] 98 mmol/L 98 - 10 7 mmol/L [place] CK.MB [Mass/Vol] NORMAL ISOENZYME PATTERN [place] CK.MB [Mass/Vol] 3.3 ng/mL <10.5 [place] CO2 [Moles/Vol] 25 mmol/L 20 - 31 mmol/L [place] Creatinine [Mass/Vol] 0.83 mg/dL 0.7 - 1.2 mg/dL [place] Differential Type NOT REPORTED [place] Eosinophils (Bld) [#/Vol] 0.46 10*3/uL High [place] Eosinophils/100 WBC (Bld) 6 % High 1 - 4 % [place] Erythrocyte distribution width (RBC) [Ratio] 13.7 % 11.8 - 14.4 % [place] GFR >60 >60 mL/min [place] GFR Non- >60 >60 mL/min [place] GFR/1.73 sq M predicted among non-blacks MDRD (S/P/Bld) [Vol rate/Area] NOT REPORTED [place] GFR/1.73 sq M predicted among non-blacks MDRD (S/P/Bld) [Vol rate/Area] [place] Comment on above: Average GFR for 60-6 9 years old: 85 mL/min/1.73sq m Chronic Kidney Disease: <60 mL/min/1.73sq m Kidney failure: <15 mL/min/1.73sq m eGFR calculated using average adult body mass. Additional eGFR calculator available at: http://www.[employer]Tale/multiple_crcl_2012.htm Glucose [Mass/Vol] 353 mg/dL High 70 - 99 mg/dL [place] Hematocrit (Bld) [Volume fraction] 47.2 % 40.7 - 50.3 % [place] Hemoglobin (Bld) [Mass/Vol] 15.6 g/dL 13 - 17 g/dL [place] Immature granulocytes (Bld) [#/Vol] 0.03 10*3/uL [place] Immature granulocytes (Bld) [#/Vol] 0 % 0 [place] INR Coag (PPP) [Relative time] 1.2 {INR} [place] Comment on above: Therapeutic Range: Moderate Anticoagulant Intensity: INR = 2.0-3.0 High Anticoagulant Intensity: INR = 2.5-3.5 Interpretation and review of laboratory results Abnormal [place] Lymphocytes (Bld) [#/Vol] 2.54 10*3/uL [place] Lymphocytes/100 WBC (Bld) 32 % 24 - 43 % [place] MCH (RBC) [Entitic mass] 28.5 pg 25.2 - 33.5 pg [place] MCHC (RBC) [Mass/Vol] 33.1 g/dL 28.4 - 34.8 g/dL [place] MCV (RBC) [Entitic vol] 86.1 fL 82.6 - 102.9 fL [place] Monocytes (Bld) [#/Vol] 0.69 10*3/uL [place] Monocytes/100 WBC (Bld) 9 % 3 - 12 % [place] Myoglobin [Mass/Vol] 24 ng/mL Low 28 - 72 ng/mL [place], [place] Platelet mean volume (Bld) [Entitic vol] 11.3 fL 8.1 - 13.5 fL [place] Platelets (Bld) [#/Vol] 201 10*3/uL [place] Platelets (Bld) [#/Vol] NOT REPORTED [place] Potassium [Moles/Vol] 4.1 mmol/L 3.7 - 5.3 mmol/L [place], [place] PT Coag (PPP) [Time] 12.1 s High [place] RBC (Bld) [#/Vol] 5.48 10*6/uL 4.21 - 5.7 7 m/uL [place], [place] RBC morphology finding Nom (Bld) NOT REPORTED [place] Segmented neutrophils/100 WBC (Bld) 52 % 36 - 65 % [place] Segs Absolute 4.20 [place] Sodium [Moles/Vol] 135 mmol/L 135 - 144 mmol/L [place] Total CK 138 U/L 39 - 308 U/L [place] Troponin I.cardiac [Mass/Vol] NOT REPORTED [place] Troponin T.cardiac [Mass/Vol] NOT REPORTED <0.03 ng/mL [place] Troponin, High Sensitivity 17 ng/L 0 - 22 ng/L [place] Comment on above: High Sensitivity Troponin values cannot be compared with other Troponin methodologies. Patients with high levels of Biotin oral intake (i.e >5mg/day) may have falsely decreased Troponin levels. Samples collected within 8 hours of biotin intake may require additional information for diagnosis. Urea nitrogen [Mass/Vol] 8 mg/dL 8 - 23 mg/dL [place] WBC (Bld) [#/Vol] 0.0 10*3/uL 0.0 per 10 0 WBC [place] WBC (Bld) [#/Vol] 8.0 10*3/uL [place] WBC Morphology NOT REPORTED [place] Stroke Panelon 06-05-2019 % CKMB 2.4 % Normal 0.0-3.5 [facility] Comment on above: Performed By: #### S MAGDY #### [employer] [address] [place] [address] Mine Administrator Supervisor: Stas Irving MD Anion gap [Moles/Vol] 12 mmol/L Normal 9-17 [facility] Comment on above: Performed By: #### S MAGDY #### [facility] [place] [address] Mine Administrator Supervisor: Stas Irving MD Calcium [Mass/Vol] 9.7 mg/dL Normal 8.6-10.4 [facility] Comment on above: Performed By: #### S TROKE #### [address] [address] Mine Administrator Supervisor: Stas Irving MD Chloride [Moles/Vol] 98 mmol/L Normal 98-107 [facility] Comment on above: Performed By: #### S TROKE #### [address] [address] Mine Administrator Supervisor: Stas Irving MD CK [Catalytic activity/Vol] 138 U/L Normal 39-308 [facility] Comment on above: Performed By: #### S TOREYKE #### [address] [address] Mine Administrator Supervisor: Stas Irving MD CK.MB [Mass/Vol] NORMAL ISOENZYME PATTERN Normal [facility] Comment on above: Performed By: #### S TOREYKE #### [address] [address] Mine Administrator Supervisor: Stas Irving MD CO2 [Moles/Vol] 25 mmol/L Normal 20-31 [facility] Comment on above: Performed By: #### S TOREYKE #### [address] [address] Mine Administrator Supervisor: Stas Irving MD Creatinine [Mass/Vol] 0.83 mg/dL Normal 0.70-1.20 [facility] Comment on above: Performed By: #### S TROKE #### [address] [address] Mine Administrator Supervisor: Stas Irving MD GFR, Amer >60 Normal >60 [facility] Comment on above: Performed By: #### S TOREYKE #### [address] [address] Mine Administrator Supervisor: Stas Irving MD GFR,non Amer >60 Normal >60 [facility] Comment on above: Performed By: #### S TROKE #### [address] [address] Mine Administrator Supervisor: Stas Irving MD Glucose [Mass/Vol] 353 mg/dL High 70-99 [facility] Comment on above: Performed By: #### S TROKE #### [address] [address] Mine Administrator Supervisor: Stas Irving MD Potassium [Moles/Vol] 4.1 mmol/L Normal 3.7-5.3 [facility] Comment on above: Performed By: #### S TROKE #### [address] [address] Mine Administrator Supervisor: Stas Irving MD Sodium [Moles/Vol] 135 mmol/L Normal 135-144 [facility] Comment on above: Performed By: #### S TOREYKE #### [address] [address] Mine Administrator Supervisor: Stas Irving MD Urea nitrogen [Mass/Vol] 8 mg/dL Normal 8-23 [facility] Comment on above: Performed By: #### S TROKE #### [address] [address] Mine Administrator Supervisor: Stas Irving MD (cont.) Normal [facility] Comment on above: Result Comment: Aver age GFR for 60-69 years old: 85 mL/min/1.73sq m Chronic Kidney Disease: <60 mL/min/1.73sq m Kidney failure: <15 mL/min/1.73sq m eGFR calculated using average adult body mass. Additional eGFR calculator available at: http://www.[employer]/multiple_crcl_2012.htm Performed By: #### S TROKE #### [address] [address] Mine Administrator Supervisor: Stas Irving MD CK-MB,Quantitative 3.3 ng/mL Normal <10.5 [facility] Comment on above: Performed By: #### S MAGDY #### [facility] [employer] [address] [place] [address] Mine Administrator Supervisor: Stas Irving MD Myoglobin [Mass/Vol] 24 ng/mL Low 28-72 [facility] Comment on above: Performed By: #### S MAGDY #### [facility] [address] [place] [address] Mine Administrator Supervisor: Stas Irving MD Troponin, High Sens 17 ng/L Normal 0-22 [facility] Comment on above: Result Comment: High Sensitivity Troponin values cannot be compared with other Troponin methodologies. Patients with high levels of Biotin oral intake (i.e >5mg/day) may have falsely decreased Troponin levels. Samples collected within 8 hours of biotin intake may require additional information for diagnosis. Performed By: #### S MAGDY #### [facility] [employer] [address] [place] [address] Mine Administrator Supervisor: Stas Irving MD aPTT Coag (Bld) [Time] 26.4 s Normal 20.5-30.5 [facility] Comment on above: Performed By: #### S MAGDY #### [facility] [employer] [address] [place] [address] Mine Administrator Supervisor: Stas Irving MD INR Coag (PPP) [Relative time] 1.2 {INR} Normal [facility] Comment on above: Result Comment: Therapeutic Range: Moderate Anticoagulant Intensity: INR = 2.0-3.0 High Anticoagulant Intensity: INR = 2.5-3.5 Performed By: #### S MAGDY #### [facility] [employer] [address] [place] [address] Mine Administrator Supervisor: Stas Irving MD PT Coag (PPP) [Time] 12.1 s High 9.0-12.0 [facility] Comment on above: Performed By: #### S TOREYKE #### [address] [address] Mine Administrator Supervisor: Stas Irving MD Abs. Basophil 0.06 k/uL Normal 0.00-0.20 [facility] Comment on above: Performed By: #### S TOREYKE #### [place] [address] Mine Administrator Supervisor: Stas Irving MD Abs.Imm.Granulocyte 0.03 k/uL Normal 0.00-0.30 [facility] Comment on above: Performed By: #### S MAGDY #### [place] [address] Mine Administrator Supervisor: Stas Irving MD Abs.Neutrophil (Seg) 4.20 k/uL Normal 1.50-8.10 [facility] Comment on above: Performed By: #### S MAGDY #### [place] [address] Mine Administrator Supervisor: Stas Irving MD Basophils/100 WBC (Bld) 1 % Normal 0-2 [facility] Comment on above: Performed By: #### S TOREYKE #### [place] [address] Mine Administrator Supervisor: Stas Irving MD Eosinophils (Bld) [#/Vol] 0.46 10*3/uL High 0.00-0.44 [facility] Comment on above: Performed By: #### S TOREYKE #### [address] [address] Mine Administrator Supervisor: Stas Irving MD Eosinophils/100 WBC (Bld) 6 % High 1-4 [facility] Comment on above: Performed By: #### S TOREYKE #### [place] [address] Mine Administrator Supervisor: Stas Irving MD Erythrocyte distribution width (RBC) [Ratio] 13.7 % Normal 11.8-14.4 [facility] Comment on above: Performed By: #### S MAGDY #### [address] [address] Mine Administrator Supervisor: Stas Irving MD Hematocrit (Bld) [Volume fraction] 47.2 % Normal 40.7-50.3 [facility] Comment on above: Performed By: #### S MAGDY #### [address] [address] Mine Administrator Supervisor: Stas Irving MD Hemoglobin (Bld) [Mass/Vol] 15.6 g/dL Normal 13.0-17.0 [facility] Comment on above: Performed By: #### S MAGDY #### [address] [address] Mine Administrator Supervisor: Stas Irving MD Immature granulocytes (Bld) [#/Vol] 0 % Normal 0 [facility] Comment on above: Performed By: #### S MAGDY #### [address] [address] Mine Administrator Supervisor: Stas Irving MD Lymphocytes (Bld) [#/Vol] 2.54 10*3/uL Normal 1.10-3.70 [facility] Comment on above: Performed By: #### S MAGDY #### [address] [address] Mine Administrator Supervisor: Stas Irving MD Lymphocytes/100 WBC (Bld) 32 % Normal 24-43 [facility] Comment on above: Performed By: #### S MAGDY #### [address] [address] Mine Administrator Supervisor: Stas Irving MD MCH (RBC) [Entitic mass] 28.5 pg Normal 25.2-33.5 [facility] Comment on above: Performed By: #### S TROKE #### [address] [address] Mine Administrator Supervisor: Stas Irving MD MCHC (RBC) [Mass/Vol] 33.1 g/dL Normal 28.4-34.8 [facility] Comment on above: Performed By: #### S TROKE #### [address] [address] Mine Administrator Supervisor: Stas Irving MD MCV (RBC) [Entitic vol] 86.1 fL Normal 82.6-102.9 [facility] Comment on above: Performed By: #### S TROKE #### [address] [address] Mine Administrator Supervisor: Stas Irving MD Monocytes (Bld) [#/Vol] 0.69 10*3/uL Normal 0.10-1.20 [facility] Comment on above: Performed By: #### S TROKE #### [address] [address] Mine Administrator Supervisor: Stas Irving MD Monocytes/100 WBC (Bld) 9 % Normal 3-12 [facility] Comment on above: Performed By: #### S TROKE #### [address] [address] Mine Administrator Supervisor: Stas Irving MD Neutrophil (Seg) 52 % Normal 36-65 [facility] Comment on above: Performed By: #### S TROKE #### [address] [address] Mine Administrator Supervisor: Stas Irving MD NRBC Automated 0.0 per 100 WBC Normal 0.0 [facility] Comment on above: Performed By: #### S TROKE #### [address] [address] Mine Administrator Supervisor: Stas Irving MD Platelet mean volume (Bld) [Entitic vol] 11.3 fL Normal 8.1-13.5 [facility] Comment on above: Performed By: #### S TOREYKE #### [address] [address] Mine Administrator Supervisor: Stas Irving MD Platelets (Bld) [#/Vol] 201 10*3/uL Normal 138-453 [facility] Comment on above: Performed By: #### S TOREYKE #### [address] [address] Mine Administrator Supervisor: Stas Irving MD RBC (Bld) [#/Vol] 5.48 10*6/uL Normal 4.21-5.77 [facility] Comment on above: Performed By: #### S MAGDY #### [address] [address] Mine Administrator Supervisor: Stas Irving MD WBC (Bld) [#/Vol] 8.0 10*3/uL Normal 3.5-11.3 [facility] Comment on above: Performed By: #### S MAGDY #### [address] [address] Mine Administrator Supervisor: Stas Irving MD Auto Diff Performed NOT REPORTED Normal [facility] Comment on above: Performed By: #### S TOREYKE #### [address] [address] Mine Administrator Supervisor: Stas Irving MD BUN/CRE Ratio NOT REPORTED Normal 9-20 [facility] Comment on above: Performed By: #### S TOREYKE #### [address] [address] Mine Administrator Supervisor: Stas Irving MD Platelets (Bld) [#/Vol] NOT REPORTED Normal [facility] Comment on above: Performed By: #### S TOREYKE #### [facility] [address] [place] [address] Mine Administrator Supervisor: Stas Irving MD RBC morphology finding Nom (Bld) NOT REPORTED Normal [facility] Comment on above: Performed By: #### S TROKE #### [facility] [address] [place] [address] Mine Administrator Supervisor: Stas Irving MD Staging: NOT REPORTED Normal [facility] Comment on above: Performed By: #### S TROKE #### [facility] [place] [address] Mine Administrator Supervisor: Stas Irving MD Troponin I.cardiac [Mass/Vol] NOT REPORTED Normal [facility] Comment on above: Performed By: #### S TROKE #### [facility] [employer] [address] [place] [address] Mine Administrator Supervisor: Stas Irving MD Troponin T.cardiac [Mass/Vol] NOT REPORTED Normal <0.03 [facility] Comment on above: Performed By: #### S TROKE #### [facility] [employer] [address] [place] [address] Mine Administrator Supervisor: Stas Irving MD WBC Morphology NOT REPORTED Normal [facility] Comment on above: Performed By: #### S TROKE #### [facility] [address] [place] [address] Mine Administrator Supervisor: Stas Irving MD Venous Blood Gas, POCon 05-22 [place] Test NOT REPORTED [facility] aPTT Coag (Bld) [Time] NOT REPORTED [facility] FIO2 NOT REPORTED [facility] HCO3, Venous 27.3 mmol/L 22 - 29 mmol/L [facility] Mode NOT REPORTED [facility] Negative Base Excess, Kody NOT REPORTED [facility] O2 Device/Flow/% NOT REPORTED [facility] Oxygen saturation in Blood 67 % 60 - 85 % [place] pCO2, Kody 41.3 [place] pH, Kody 7.428 [place] pO2, Kody 33.8 [place] POC pCO2 Temp NOT REPORTED mm Hg [place] POC pH Temp NOT REPORTED [place] POC pO2 Temp NOT REPORTED mm Hg [place] Positive Base Excess, Kody 3 [place] Sample Site NOT REPORTED [place] Total CO2, Venous 29 mmol/L 23 - 30 mmol/L [place] XR CHEST PORTABLEon 06-05-20 19 XR [...] C Goyal MD 06/05/19 Final result Normal [facility] EXAMINATION: ONE XRA Y VIEW OF THE CHEST 06/05/2019 9:01 pm COMPARISON: None. HISTORY: ORDERING SYSTEM PROVIDED HISTORY: CVA TECHNOLOGIST PROVIDED HISTORY: CVA Reason for Exam: stroke upright port FINDINGS: The lungs are without acute focal process. There is no effusion or pneumothorax. The cardiomediastinal silhouette is without acute process. The osseous structures are without acute process. [place] Nav, Mhpn Incoming Radiant Results From [employer] - 06/05/2019 9:43 PM EDT EXAMINATION: ONE [...] without acute process. IMPRESSION: No acute process. [place] No acute process. [facility] [place] Vital Signs Date Time Vital Sign Value Performing Clinician Facility 10-16-2024 14:40-0500 Body mass index (BMI) [Ratio] 31.38 kg/m2 Adilson Salazar MD Work Phone: [facility] 10-16-2024 14:40-0500 Body temperature 98.1 [degF] Adilson Salazar MD Work Phone: [facility] 10-16-2024 14:40-0500 Body weight 104.96 kg Adilson Salazar MD Work Phone: [facility] 10-16-2024 14:40-0500 Diastolic blood pressure 78 mm[Hg] Adilson Salazar MD Work Phone: [facility] 10-16-2024 14:40-0500 Heart rate 79 /min Adilson Salazar MD Work Phone: [facility] 10-16-2024 14:40-0500 SaO2% (BldA) [Mass fraction] 96 % Adilson Salazar MD Work Phone: [facility] 10-16-2024 14:40-0500 Systolic blood pressure 152 mm[Hg] Adilson Salazar MD Work Phone: [facility] 07-02-2024 14:25-0500 Body height 182.9 cm Adilson Salazar MD Work Phone: [facility] 07-02-2024 14:25-0500 Body mass index (BMI) [Ratio] 33.23 kg/m2 Adilson Salazar MD Work Phone: [facility] 07-02-2024 14:25-0500 Body temperature 96.21 [degF] Adilson Salazar MD Work Phone: [facility] 07-02-2024 14:25-0500 Body weight 111.13 kg Adilson Salazar MD Work Phone: [facility] 07-02-2024 14:25-0500 Diastolic blood pressure 98 mm[Hg] Adilson Salazar MD Work Phone: [facility] 07-02-2024 14:25-0500 Heart rate 91 /min Adilson Salazar MD Work Phone: [facility] 07-02-2024 14:25-0500 Respiratory rate 20 /min Adilson Salazar MD Work Phone: [facility] 07-02-2024 14:25-0500 SaO2% (BldA) [Mass fraction] 95 % Adilson Salazar MD Work Phone: [facility] 07-02-2024 14:25-0500 Systolic blood pressure 200 mm[Hg] Adilson Salazar MD Work Phone: [facility] 05-18-2024 10:12-0400 Body height 182.9 cm Adilson Salazar MD Work Phone: [facility] 05-18-2024 10:12-0400 Body mass index (BMI) [Ratio] 31.46 kg/m2 Adilson Salazar MD Work Phone: [facility] 05-18-2024 10:12-0400 Body temperature 96.6 [degF] Adilson Salazar MD Work Phone: [facility] 05-18-2024 10:12-0400 Body weight 105.23 kg Adilson Salazar MD Work Phone: [facility] 05-18-2024 10:12-0400 Diastolic blood pressure 74 mm[Hg] Adilson Salazar MD Work Phone: [facility] 05-18-2024 10:12-0400 Heart rate 90 /min Adilson Salazar MD Work Phone: [facility] 05-18-2024 10:12-0400 Respiratory rate 18 /min Adilson Salazar MD Work Phone: [facility] 05-18-2024 10:12-0400 SaO2% (BldA) [Mass fraction] 95 % Adilson Salazar MD Work Phone: [facility] 05-18-2024 10:12-0400 Systolic blood pressure 136 mm[Hg] Adilson Salazar MD Work Phone: [facility] 05-02-2024 13:17-0400 Body height 182.9 cm Adilson Salazar MD Work Phone: [facility] 05-02-2024 13:17-0400 Body mass index (BMI) [Ratio] 33.63 kg/m2 Adilson Salazar MD Work Phone: [facility] 05-02-2024 13:17-0400 Body temperature 97.5 [degF] Adilson Salazar MD Work Phone: [facility] 05-02-2024 13:17-0400 Body weight 112.49 kg Adilson Salazar MD Work Phone: [facility] 05-02-2024 13:17-0400 Diastolic blood pressure 64 mm[Hg] Adilson Salazar MD Work Phone: [facility] 05-02-2024 13:17-0400 Heart rate 78 /min Adilson Salazar MD Work Phone: [facility] 05-02-2024 13:17-0400 Respiratory rate 20 /min Adilson Salazar MD Work Phone: [facility] 05-02-2024 13:17-0400 SaO2% (BldA) [Mass fraction] 96 % Adilson Salazar MD Work Phone: [facility] 05-02-2024 13:17-0400 Systolic blood pressure 170 mm[Hg] Adilson Salazar MD Work Phone: [facility] 02-02-2023 10:20-0400 Blood Pressure Location Milvia Lue [facility] 02-02-2023 10:20-0400 Diastolic blood pressure 82 mm[Hg] Milvia Lue [facility] [place] 02-02-2023 10:20-0400 Heart rate 72 /min Milvia Lue [facility] 02-02-2023 10:20-0400 Systolic blood pressure 132 mm[Hg] Milvia Lue [facility] 11-03-2022 08:12-0400 Blood Pressure Location Milvia Lue [facility] 11-03-2022 08:12-0400 Diastolic blood pressure 81 mm[Hg] Milvia Lue [facility] 11-03-2022 08:12-0400 Heart rate 77 /min Milvia Lue [facility] 11-03-2022 08:12-0400 Systolic blood pressure 131 mm[Hg] Milvia Lue [facility] 08-04-2022 08:56-0500 Blood Pressure Location Milvia Lue [facility] 08-04-2022 08:56-0500 Diastolic blood pressure 90 mm[Hg] Milvia Lue [facility] 08-04-2022 08:56-0500 Heart rate 78 /min Milvia Lue [facility] 08-04-2022 08:56-0500 Respiratory rate 16 /min Milvia Lue [facility] 08-04-2022 08:56-0500 Systolic blood pressure 140 mm[Hg] Milvia Lue [facility] 07-06-2022 17:09-0500 Body temperature 97.88 [degF] Milvia Lue [facility] 07-06-2022 17:09-0500 Diastolic blood pressure 88 mm[Hg] Milvia Lue [facility] 07-06-2022 17:09-0500 Heart rate 80 /min Milvia Lue [facility] 07-06-2022 17:09-0500 Mean blood pressure 114 mm[Hg] Milvia Lue [facility] 07-06-2022 17:09-0500 Respiratory rate 16 /min Milvia Lue [facility] 07-06-2022 17:09-0500 SaO2% (BldA) [Mass fraction] 98 % Milvia Lue [facility] 07-06-2022 17:09-0500 Systolic blood pressure 165 mm[Hg] Milvia Lue [facility] 07-06-2022 16:24-0500 Blood Pressure Location Milvia Lue [facility] 07-06-2022 16:24-0500 Body temperature 97.88 [degF] Milvia Lue [facility] 07-06-2022 16:24-0500 Diastolic blood pressure 98 mm[Hg] Milvia Lue [facility] 07-06-2022 16:24-0500 Heart rate 76 /min Milvia Lue [facility] 07-06-2022 16:24-0500 Mean blood pressure 122 mm[Hg] Milvia Lue [facility] 07-06-2022 16:24-0500 SaO2% (BldA) [Mass fraction] 96 % Milvia Lue [facility] 07-06-2022 16:24-0500 Systolic blood pressure 169 mm[Hg] Milvia Lue [facility] 07-06-2022 16:16-0500 Blood Pressure Location Milvia Lue [facility] 07-06-2022 16:16-0500 Body temperature 97.52 [degF] Milvia Lue [facility] 07-06-2022 16:16-0500 Diastolic blood pressure 105 mm[Hg] Milvia Lue [facility] 07-06-2022 16:16-0500 Heart rate 82 /min Milvia Lue [facility] 07-06-2022 16:16-0500 Respiratory rate 16 /min Milvia Lue [facility] 07-06-2022 16:16-0500 SaO2% (BldA) [Mass fraction] 98 % Milvia Lue [facility] 07-06-2022 16:16-0500 Systolic blood pressure 159 mm[Hg] Milvia Lue [facility] 07-06-2022 16:03-0500 Blood Pressure Location Milvia Lue [facility] 07-06-2022 16:03-0500 Respiratory rate 12 /min Milvia Lue [facility] 07-06-2022 15:58-0500 Respiratory rate 17 /min Milvia Lue [facility] 07-06-2022 15:48-0500 Body temperature 97.7 [degF] Milvia Lue [facility] 07-06-2022 10:40-0500 Mean blood pressure 106 mm[Hg] Milvia Lue [facility] 07-06-2022 10:40-0500 Heart rate 80 /min Milvia Lue [facility] 07-06-2022 10:39-0500 Body temperature 98.78 [degF] Milvia Lue [facility] 07-06-2022 10:39-0500 Mean blood pressure 113 mm[Hg] Milvia Lue [facility] 07-06-2022 10:39-0500 Respiratory rate 20 /min Milvia Lue [facility] 06-30-2022 17:30-0500 Blood Pressure Location Milvia Lue [facility] 06-30-2022 17:30-0500 BP/Pulse Patient Position Milvia Lue [facility] 06-30-2022 17:30-0500 Diastolic blood pressure 84 mm[Hg] Milvia Lue [facility] 06-30-2022 17:30-0500 Systolic blood pressure 175 mm[Hg] Milvia Lue [facility] 06-30-2022 17:22-0500 Blood Pressure Location Milvia Lue [facility] 06-30-2022 17:22-0500 Diastolic blood pressure 96 mm[Hg] Milvia Lue [facility] 06-30-2022 17:22-0500 Heart rate 67 /min Milvia Lue [facility] 06-30-2022 17:22-0500 Mean blood pressure 125 mm[Hg] Milvia Lue [facility] 06-30-2022 17:22-0500 Systolic blood pressure 185 mm[Hg] Milvia Lue [facility] 06-30-2022 16:53-0500 Blood Pressure Location Milvia Lue [facility] 06-30-2022 16:53-0500 Body temperature 98.96 [degF] Milvia Lue [facility] 06-30-2022 16:53-0500 BP/Pulse Patient Position Milvia Lue [facility] 06-30-2022 16:53-0500 Diastolic blood pressure 96 mm[Hg] Milvia Lue [facility] 06-30-2022 16:53-0500 Heart rate 76 /min Milvia Lue [facility] 06-30-2022 16:53-0500 Mean blood pressure 124 mm[Hg] Milvia Lue [facility] 06-30-2022 16:53-0500 Respiratory rate 18 /min Milvia Lue [facility] 06-30-2022 16:53-0500 Systolic blood pressure 180 mm[Hg] Milvia Lue [facility] 06-30-2022 16:52-0500 BP/Pulse Patient Position Milvia Lue [facility] 06-30-2022 16:52-0500 Heart rate 79 /min Milvia Lue [facility] 06-30-2022 16:52-0500 Mean blood pressure 124 mm[Hg] Milvia Lue [facility] 06-30-2022 16:52-0500 SaO2% (BldA) [Mass fraction] 98 % Milvia Lue [facility] 06-25-2022 15:25-0400 Blood Pressure Location Curtis NILL [facility] 06-25-2022 15:25-0400 Diastolic blood pressure 86 mm[Hg] Curtis NILL [facility] 06-25-2022 15:25-0400 Heart rate 72 /min Curtis NILL [facility] [place] 06-25-2022 15:25-0400 Respiratory rate 16 /min Curtis NILL [facility] 06-25-2022 15:25-0400 Systolic blood pressure 142 mm[Hg] Curtis NILL [facility] 06-02-2022 09:21-0400 Blood Pressure Location Milvia Lue [facility] 06-02-2022 09:21-0400 Diastolic blood pressure 86 mm[Hg] Milvia Lue [facility] 06-02-2022 09:21-0400 Heart rate 72 /min Milvia Lue [facility] 06-02-2022 09:21-0400 Systolic blood pressure 140 mm[Hg] Milvia Lue [facility] 05-26-2022 07:25-0400 Body height 182.88 cm MD Adilson Salazar Work Phone: [facility] 05-26-2022 07:25-0400 Body weight 98.88 kg MD Adilson Salazar Work Phone: [facility] 04-21-2022 11:39-0400 Respiratory rate 16 /min Milvia Lue [facility] 06-09-2019 11:39-0400 Body Temperature 98.29 [degF] Anselmo Garza [place], [place] 06-09-2019 11:39-0400 BP Diastolic 79 mm[Hg] [place] 06-09-2019 11:39-0400 BP Systolic 134 mm[Hg] [place] 06-09-2019 11:39-0400 Pulse (Heart Rate) 84 /min [place], [place] 06-09-2019 11:39-0400 Pulse Oximetry 95 % [place] 06-09-2019 11:39-0400 Respiratory Rate 20 /min [place] 06-05-2019 20:48-0400 BMI (Body Mass Index) 29.84 kg/m2 [place], [place] 06-05-2019 20:48-0400 Body weight 99.79 kg [place] 06-05-2019 20:48-0400 Height 182.9 cm [place] Encounters Encounter Date Encounter Type Care Provider Facility Start: 10-29-2024 End: 10-29-2024 ambulatory SILVANO MARTINEZ [facility] Start: 10-16-2024 End: 10-16-2024 Transitional care manage srvc 14 day discharge Adilson Salazar MD Work Phone: [facility] Comment on above: Type 2 diabetes thomas itus with hyperglycemia, with long-term current use of insulin (CMS/HCC) (Primary Dx); Diverticulitis; Essential hypertension, benign (CMS/HCC); Prostatic cancer (CMS/HCC); Multi-infarct dementia, uncomplicated (CMS/HCC); Heart failure with improved ejection fraction (HFimpEF) (CMS/HCC) Start: 10-16-2024 End: 10-16-2024 Bamboo flowsheet Adilson Salazar MD Work Phone: [facility] Start: 10-16-2024 End: 10-16-2024 Bamboo flowsheet Adilson Salazar MD Work Phone: [facility] Start: 10-16-2024 End: 10-16-2024 ambulatory ADILSON SALAZAR Not Available Start: 10-15-2024 End: 10-15-2024 ambulatory [facility] Start: 09-30-2024 End: 10-02-2024 Clinisync Result Encounter Generic External Data Provider [facility] External [facility] Unsolicited Start: 09-30-2024 End: 10-02-2024 Clinisync Result Encounter Generic External Data Provider [facility] External [facility] Unsolicited Start: 08-07-2024 End: 08-07-2024 ambulatory PHYLLIS ACOSTA [facility] Start: 07-24-2024 ambulatory CUCA AGUILAR [facility] Start: 07-02-2024 End: 07-02-2024 Office outpatient visit 25 minutes Adilson Salazar MD Work Phone: [facility] Comment on above: Type 2 diabetes thomas itus with hyperglycemia, with long-term current use of insulin (CMS/HCC) (Primary Dx); Essential hypertension, benign (CMS/HCC); Heart failure with improved ejection fraction (HFimpEF) (CMS/HCC); 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 (CMS/HCC) Start: 07-02-2024 End: 07-02-2024 ambulatory ADILSON SALAZAR Not Available Start: 07-02-2024 End: 07-02-2024 Bamboo flowsheet Adilson Salazar MD Work Phone: [facility] Start: 07-02-2024 End: 07-02-2024 Bamboo flowsheet Adilson Salazar MD Work Phone: [facility] Start: 06-01-2024 End: 06-01-2024 ambulatory [facility] Start: 05-18-2024 End: 05-18-2024 Bamboo flowsheet Adilson Salazar MD Work Phone: [facility] Start: 05-18-2024 End: 05-18-2024 Bamboo flowsheet Adilson Salazar MD Work Phone: [facility] Start: 05-18-2024 End: 05-18-2024 Transitional care manage srvc 7 day discharge Adilson Salazar MD Work Phone: [facility] Comment on above: Single subsegmental pulmonary embolism without acute cor pulmonale (CMS/HCC) (Primary Dx); Pneumonia of right lower lobe due to infectious organism; NSTEMI (non-ST elevated myocardial infarction) (CMS/HCC); 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 (CMS/HCC); Type 2 diabetes mellitus with hyperglycemia, with long-term current use of insulin ([facility]/HCC) Start: 05-18-2024 End: 05-18-2024 ambulatory ADILSON SALAZAR Not Available Start: 05-09-2024 End: 05-11-2024 Clinisync Result Encounter Generic External Data Provider [facility] External [facility] Unsolicited Start: 05-09-2024 End: 05-11-2024 Clinisync Result Encounter Generic External Data Provider [facility] External [facility] Unsolicited Start: 05-02-2024 End: 05-02-2024 Bamboo flowsheet Adilson Salazar MD Work Phone: [facility] Start: 05-02-2024 End: 05-02-2024 Bamboo flowsheet Adilson Salazar MD Work Phone: [facility] Start: 05-02-2024 End: 05-02-2024 ambulatory ADILSON SALAZAR Not Available Start: 05-02-2024 End: 05-02-2024 Office outpatient visit 25 minutes Adilson Salazar MD Work Phone: [facility] Comment on above: Heart failure with i mproved ejection fraction (HFimpEF) (CMS/HCC) (Primary Dx); Type 2 diabetes mellitus with hyperglycemia, with long-term current use of insulin (CMS/HCC); 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 (CMS/HCC); Essential hypertension, benign (CMS/HCC); Bilateral impacted cerumen Start: 04-10-2024 ambulatory VIVIAN Marx [facility] Start: 03-28-2024 End: 03-28-2024 ambulatory ADILSON SALAZAR Not Available Start: 03-13-2024 Evaluation and management of inpatient [facility] Start: 03-13-2024 Evaluation and management of inpatient [facility] Start: 03-13-2024 End: 03-14-2024 Evaluation and management of inpatient DASHAWN SAAB [facility] Start: 03-13-2024 End: 03-13-2024 Emergency department patient visit CUCA AGUILAR [facility] Start: 02-14-2024 End: 02-14-2024 ambulatory [facility] Start: 02-06-2024 ambulatory [facility] Start: 12-29-2023 End: 12-29-2023 ambulatory ADILSON SALAZAR Not Available Start: 09-29-2023 Clinisync Result Encounter Adilson Salazar MD Work Phone: [facility]solic[facility] Start: 09-29-2023 Clinisync Result Encounter Adilson Salazar MD Work Phone: [facility]solicited Start: 09-29-2023 Orders Only Adilson Bell Work Phone: [facility] Comment on above: Type 2 diabetes thomas itus with hyperglycemia, with long-term current use of insulin ([facility]) Start: 02-02-2023 End: 02-03-2023 ambulatory Milvia Palomo Facility:[facility] Start: 02-02-2023 End: 02-02-2023 Patient encounter procedure Milvia Palomo [facility] Start: 11-17-2022 End: 11-17-[address] ADILSON SALAZAR Facility: Start: 11-03-2022 End: 11-04-2022 ambulatory Milvia Palomo Facility:[facility] Start: 11-03-2022 End: 11-03-2022 Patient encounter procedure Milvia Palomo [facility] Start: 10-25-2022 End: 10-26-2022 ambulatory MILVIA Ford ZULLYJosiah Facility: Start: 10-12-2022 ambulatory Daniel R ARYAN Jacobsen ty:[facility] Start: 10-06-2022 End: 10-07-2022 ambulatory Milvia FordAbran Palomo Facility:[facility] Start: 10-06-2022 End: 10-06-2022 Patient encounter procedure Milvia Palomo [facility] Start: 09-22-2022 End: 09-22-2022 ambulatory Adilson Salazar Facility:[facility] Start: 09-20-2022 End: 09-20-2022 ambulatory MD Adilson Salazar Work Phone: [facility] Work Phone: Start: 09-20-2022 End: 09-20-2022 Patient encounter procedure MD Adilson Salazar Work Phone: [facility] Work Phone: Start: 08-06-2022 End: 08-07-[address] CURTIS Osullivan Facility: Start: 08-04-2022 End: 08-05-2022 ambulatory Milvia Palomo Facility:[facility] Start: 08-04-2022 End: 08-04-2022 Patient encounter procedure Milvia FordAbran Danieljosiah [facility] Start: 08-03-2022 ambulatory Curtis GRACIA Facility :[facility] Start: 07-21-2022 Encounter for preprocedural laboratory examination DR CURTIS Osullivan [facility] Start: 07-21-2022 End: 07-22-[address] CURTIS Osullivan Facility: Start: 07-17-2022 End: 07-18-[address] CURTIS Osullivan Facility: Start: 07-17-2022 End: 07-18-2022 Encounter for preprocedural laboratory examination DR CURTIS Osullivan Facility: Start: 07-06-2022 End: 07-06-2022 ambulatory Milvia Palomo Facility:[facility] Start: 07-06-2022 End: 07-06-2022 Admission to same day surgery center Milvia Palomo [facility] Start: 06-30-2022 End: 07-01-2022 ambulatory Milvia Palomo Facility:[facility] Start: 06-30-2022 End: 06-30-2022 Patient encounter procedure Milvia Palomo [facility] Start: 06-29-2022 End: 09-28-2022 ambulatory Milvia Palomo Facility:[facility] Start: 06-25-2022 End: 06-26-2022 ambulatory Curtis GRACIA Facility: [facility] Start: 06-25-2022 End: 06-25-2022 Patient encounter procedure Curtis GRACIA General [facility] Start: 06-15-2022 End: 06-16-[address] ADILSON SALAZAR Facility: Start: 06-07-2022 End: 06-07-[address] ADILSON SALAZAR Facility: Start: 06-04-2022 ambulatory Daniel BAEZA Facility : [place] Start: 06-03-2022 End: 09-27-2022 Recurring Milvia Palomo [facility] Start: 06-02-2022 End: 06-03-2022 ambulatory Milvia Palomo Facility:[facility] Start: 06-02-2022 End: 06-30-2022 Pre-admission assessment Milvia Palomo [facility] Start: 06-02-2022 End: 06-02-2022 Patient encounter procedure [facility] Start: 05-26-2022 End: 05-26-2022 ambulatory MD Adilson Salazar Work Phone: [facility] Work Phone: Start: 05-26-2022 End: 05-26-2022 Patient encounter procedure MD Adilson Salazar Work Phone: [facility] [place] Start: 04-21-2022 End: 04-22-2022 ambulatory Milvia Palomo Facility:[facility] Start: 04-21-2022 End: 04-21-2022 Patient encounter procedure [facility] Start: 01-26-2022 End: 01-27-[address] ADILSON SALAZAR Facility: Start: 06-05-2019 End: 06-09-2019 Evaluation and management of inpatient OSCAR HARP [facility] Start: 06-05-2019 End: 06-09-2019 Evaluation and management of inpatient Anselmo Garza Work Phone: [phone] [facility] Comment on above: Cerebrovascular acci dent (CVA), unspecified mechanism (HCC) (Primary Dx) Procedures Date Procedure Procedure Detail Performing Clinician Start: 09-30-2024 BLOOD CULTURE 1 Generic External Data Provider Start: 05-09-2024 BLOOD CULTURE 1 Generic External Data Provider Start: 09-29-2023 MLR HEMOGLOBIN A1C Adilson Salazar MD Work Phone: Start: 09-20-2022 Positron emission tomography MD Adilson Salazar Work Phone: Start: 07-21-2022 Colonoscopy Adilson munoz MD Work Phone: Start: 07-06-2022 Biopsy of prostate Salud Palomo Start: 01-26-[address] ADILSON PEARSON Comment on above: Performed By: #### P TT, PT #### [facility] [address] [place] [address] Dr. Marcell Luque Start: 09-08-2020 Transrectal biopsy [...] Phone: Start: 06-09-2019 FACTOR 5 LEIDEN OSCAR CONTI Start: 06-09-2019 PROTHROMBIN GENE MUTATION OSCAR HARP [...] HARP Start: 06-09-2019 Glucose blood reagent strip Oemr S Ahmed Work Phone: Start: 06-09-2019 Basic metabolic pane l calcium total Eugene Carvalho Work Phone: Start: 06-09-2019 Blood count complete auto&auto difrntl wbc Eugene Carvalho Work Phone: Start: 06-09-2019 Gluc bld gluc [...] 06-07-2019 WOUND CARE OSCAR HARP Start: 06-07-2019 PORTER SAMPLE CASE REPORT OSCAR RITTER SUSHILA Start: 06-07-2019 Glucose blood reagent strip Oscar Harp Work Phone: Start: 06-07-2019 PORTER SAMPLE CASE REPORT Hpf Sca nning Start: 06-07-2019 VERIFY [...] OSCAR HARP Start: 06-06-2019 TRANSFER PATIENT OSCAR Mosley MIGUELMariia Start: 06-06-2019 Ct head/brain w/o co ntrast material OSCAR HARP Start: 10-16-2019 MISCELLANEOUS NURSIN G CARE ORDER (SPECIFY) OSCAR HARP Start: 06-06-2019 Glucose blood reagent strip OSCAR HARP Start: 06-06-2019 ELEVATE HEELS OFF OF BED OSCAR HARP Start: 06-06-2019 HEAD OF BED 60 DEGRE ES OR LESS OSCAR HARP Start: 06-06-2019 NURSING COMMUNICATION P JACQUIE HARP Start: 06-06-2019 TURN PATIENT OSCAR LOYD Start: 06-06-2019 Ct head/brain w/o co ntrast [...] HARP Start: 06-06-2019 NURSING SWALLOW ASSESSMENT OSCAR HAPR Start: 06-06-2019 OT EVAL AND TREAT OSCAR HARP Start: 06-06-2019 PLACE INTERMITTENT PNEUMATIC COMPRESSION DEVICE OSCAR HARP Start: 06-06-2019 PROVIDE PATIENT EDUC ATION MATERIALS OSCAR HARP Start: 06-06-2019 PT EVAL AND TREAT OSCAR HARP Start: 06-06-2019 PULSE OXIMETRY, CONTINUOUS OSCAR HARP Start: 06-06-2019 REASON FOR NO CHEMIC AL VTE PROPHYLAXIS OSCAR HARP Start: 06-06-2019 CONTACT AGENT EVAL AND TREAT OSCAR HARP Start: 06-06-2019 [...] methi cillin resist amp probe tq [facility] Work Phone: Start: 06-06-2019 Gluc bld gluc [...] 06-05-2019 ANION GAP (CALC) POC Wi cecil aGrza Work Phone: Start: 06-05-2019 Blood count hemoglobin [...] Work Phone: Start: 06-05-2019 Sodium [Moles/Vol] Will adrianaford Garza Work Phone: Start: 06-05-2019 VENOUS BLOOD GAS, PO INT OF CARE Anselmo Garza Work Phone: Start: 06-05-2019 Glucose blood reagent strip Anselmo Garza Work Phone: Start: 08-22-2011 Colonoscopy Curtis NI LL Arthroplasty of knee Milvia Singleton ue Arthroplasty of knee Curtis GRACIA Arthroscopy of shoulder Jamie aebess GRACIA Excision of lumbar intervertebral disc Curtis GRACIA Comment on above: L4-5 Extraction of cataract Milvia Palomo Insertion of cathete r into spinal canal for infusion of therapeutic substance Curtis GRACIA Procedure on back Milvia Palomo Plan of Treatment Date Care Activity Detail Author Start: 07-21-2032 Screening for malignant neoplasm of colon [facility] Start: 03-13-2025 Urine screening for protein Diabetes: Urine Protein Screening [facility] Start: 01-16-2025 End: 01-16-2025 Patient encounter procedure 01/16/2025 1:15 PM EDT Office Visit [facility] [address] [place] [id number] Adilson Salazar MD [address] [place] [phone] [facility] Start: 10-16-2024 End: 10-16-2024 Patient encounter procedure 10/16/2024 2:30 PM EST Office Visit [facility] [address] [place] [address] Adilson Salazar MD [address] [place] [phone] Arrived [facility] Comment on above: Arrived Start: 10-16-2024 End: 10-16-2025 Hemoglobin A1c/Hemoglobin.total in Blood Hemoglobin A1c Lab Routine Type 2 diabetes mellitus with hyperglycemia, with long-term current use of insulin ([facility]) Expected: 10/16/2024 (Approximate), Expires: 10/16/2025 [facility] Comment on above: Expected: 10/16/2024 (Approximate), Expi res: 10/16/2025 Start: 10-16-2024 End: 10-16-2025 Microalbumin/Creatinine panel in random Urine Microalbumin / creatinine, urine ratio Lab Routine Type 2 diabetes mellitus with hyperglycemia, with long-term current use of insulin ([facility]) Expected: 10/16/2024 (Approximate), Expires: 10/16/2025 [facility] Work Phone: Comment on above: Expected: 10/16/2024 (Approximate), Expi res: 10/16/2025 Start: 10-02-2024 End: 10-02-2024 Patient encounter procedure 10/02/2024 1:30 PM EST Office Visit [facility] [address] [place] [address] Adilson Salazar MD [address] [place] [phone] [facility] Start: 09-14-2024 Hemoglobin A1c measurement Diabetes: Hemoglobin A1C [facility] Start: 07-02-2024 End: 07-02-2024 Patient encounter procedure 07/02/2024 2:30 PM EST Office Visit [facility] [address] [place] [address] Adilson Salazar MD [address] [place] [id number] [facility] Start: 07-02-2024 End: 07-02-2025 Hemoglobin A1c/Hemoglobin.total in Blood Hemoglobin A1c Lab Routine Type 2 diabetes mellitus with hyperglycemia, with long-term current use of insulin ([facility]) Expected: 07/02/2024 (Approximate), Expires: 07/02/2025 [facility] Work Phone: Comment on above: Expected: 07/02/2024 (Approximate), Expi res: 07/02/2025 Start: 06-17-2024 Urine screening for protein Diabetes: Urine Protein Screening [facility] Start: 06-14-2024 Hemoglobin A1c measurement Diabetes: Hemoglobin A1C [facility] Start: 05-18-2024 End: 05-18-2024 Patient encounter procedure [facility] Comment on above: Arrived Start: 04-22-2024 Influenza vaccination Influenza Vaccine (#1) [facility] Start: 12-29-2023 End: 12-29-2023 Patient encounter procedure 12/29/2023 11:15 AM EDT Office Visit [facility] [address] [place] [id number] Adilson Salazar MD [address] [place] [id number] [facility] Start: 09-17-2023 Hemoglobin A1c measurement Diabetes: Hemoglobin A1C [facility] Healthcare Start: 04-22-2023 Influenza vaccination Influenza Vaccine (#1) [facility] Start: 05-26-2022 MR Prostate WO and W contrast IV [facility] Start: 05-26-2022 MR prostate wo/w con MR prostate wo/w con [facility] Start: 06-08-2020 Creatinine monitoring Creatinine monitoring [place], [place] Start: 06-08-2020 Potassium monitoring Potassium monitoring [place] Start: 06-06-2020 Lipid screen Lipid screen [place] Start: 09-06-2019 A1C test (Diabetic or Prediabetic) A1C test (Diabetic or Prediabetic) [place] Start: 06-05-2019 Annual Wellness Visit (AWV) Annual Wellness Visit (AWV) [place] Start: 04-22-2019 Influenza vaccination Flu vaccine (#1) [place] Start: 03-20-2014 Pneumococcal Vaccine: 65+ Years (2 - PCV) Pneumococcal Vaccine: 65+ Years (2 - PCV) [facility] Healthcare Start: 03-20-2014 Pneumococcal Vaccine: 65+ Years (2 of 2 - PCV) Pneumococcal Vaccine: 65+ Years (2 of 2 - PCV) [facility] Start: 11-08-2005 Colon cancer screen colonoscopy Colon cancer screen colonoscopy [place] Start: 11-08-2005 Shingles Vaccine (1 of 2) Shingles Vaccine (1 of 2) [place], [place] Start: 11-08-1974 DTaP/Tdap/Td vaccine (1 - Tdap) DTaP/Tdap/Td vaccine (1 - Tdap) [place] Start: 11-08-1973 Diabetic microalbuminuria test Diabetic microalbuminuria test [place] Start: 11-08-1970 HIV screen HIV screen [place] Start: 11-08-1965 [object Object] Diabetic foot exam [place] Start: 11-08-1965 Diabetic retinal exam Diabetic retinal exam [place], [place] Start: 11-08-1965 Glaucoma screening Diabetes: Retinopathy Screening [facility] Start: 1955 Hepatitis C screen Hepatitis C screen [place], [place] Start: 1955 Screening for malignant neoplasm of colon [facility] End: 06-09-2019 ANTI-PHOSPHOLIPID AB ANTI-PHOSPHOLIPID AB Lab Routine One Time for 1 Occurrences starting 06/09/2019 until 06/09/2019 [place] Comment on above: One Time for 1 Occurrences starting 05/22 until 06/09/2019 ANTI-PHOSPHOLIPID AB ANTI-PHOSPH OLIPID AB Lab Routine 06/09/2019 9:41 AM EDT [place] Basic metabolic 2000 panel Basic Metabolic Panel Lab Routine Daily until discontinued starting 06/07/2019, 3 completed [place] Comment on above: Daily until discontinued starting 2018, 3 completed BLOOD CULTURE 1 BLOOD CULTURE 1 Lab Routine 05/09/2024 10:39 AM EDT [facility] BLOOD CULTURE 1 BLOOD CULTURE 1 Lab Routine 09/30/2024 10:48 PM EST [facility] CBC Auto Differential CBC Auto D ifferential Lab Routine Daily until discontinued starting 06/07/2019, 3 completed [place] Comment on above: Daily until discontinued starting 2018, 3 completed End: 06-07-2019 Diagnostic Cardiac Freight Receiver Procedure Diagnostic Cardiac Freight Receiver Procedure Cardiac Cath Routine One Time for 1 Occurrences starting 06/07/2019 until 06/07[facility]2019 [facility] One Time for 1 Occurrences starting 05/22 until 06/07/2019 End: 06-09-2019 Dilute Deepak Viper Dilute Deepak Viper Lab Routine One Time for 1 Occurrences starting 06/09/2019 until 06/09/2019 [facility] [place] Comment on above: One Time for 1 Occurrences starting 05/22 until 06/09/2019 Dilute Deepak Viper Dilute Jaime ell Viper Lab Routine 06/09/2019 9:41 AM EDT [facility] [place] End: 06-09-2019 FACTOR 5 LEIDEN FACTOR 5 LEIDEN Lab Routine One Time for 1 Occurrences starting 06/09/2019 until 06/09/2019 [facility] [place] Comment on above: One Time for 1 Occurrences starting 05/22 until 06/09/2019 End: 06-09-2019 FACTOR 8 ASSAY FACTOR 8 ASSAY Lab Routine One Time for 1 Occurrences starting 06/09/2019 until 06/09/2019 [facility] [place] Comment on above: One Time for 1 Occurrences starting 05/22 until 06/09/2019 FACTOR 8 ASSAY FACTOR 8 ASSAY L ab Routine 06/09/2019 9:41 AM EDT [facility] [place] Home BIPAP or CPAP Home BIPAP or CPAP Respiratory Care Routine Daily until discontinued starting 06/07/2019 [facility] [place] Comment on above: Daily until discontinued starting 2018 Incentive spirometry Incentive s pirometry Respiratory Care Routine Daily until discontinued starting 06/06/2019 [facility] [place] Comment on above: Daily until discontinued starting 2018 Initiate Oxygen Ther apy Protocol Initiate Oxygen Therapy Protocol Respiratory Care Routine Daily until discontinued starting 06/07/2019 [facility] [place] Comment on above: Daily until discontinued starting 2018 POCT glucose [facility] [place] Comment on above: 4X Daily (AC & HS) until discontinued st arting 06/06/2019 As Needed until disc ontinued starting 06/06/2019 End: 06-09-2019 Protein C Functional Protein C Functional Lab Routine One Time for 1 Occurrences starting 06/09/2019 until 06/09/2019 [facility] on above: One Time for 1 Occurrences starting 05/22 until 06/09/2019 Protein C Functional Protein C F unctional Lab Routine 06/09/2019 9:41 AM EDT [facility] End: 06-09-2019 Protein S Functional Protein S Functional Lab Routine One Time for 1 Occurrences starting 06/09/2019 until 06/09/2019 [facility] Comment on above: One Time for 1 Occurrences starting 05/22 until 06/09/2019 Protein S Functional Protein S F unctional Lab Routine 06/09/2019 9:41 AM EDT [facility] End: 06-09-2019 Prothrombin Gene Mutation Prothrombin Gene Mutation Lab Routine One Time for 1 Occurrences starting 06/09/2019 until 06/09/2019 [facility] [place] Comment on above: One Time for 1 Occurrences starting 05/22 until 06/09/2019 End: 06-07-2019 Pulse oximetry, continuous Pulse oximetry, continuous Respiratory Care Routine Every 4hr for 24 Hours starting 06/06/2019 until 06/07/2019 [facility] Comment on above: Every 4hr for 24 Hours starting 06/06/20 until 06/07/2019 Immunizations Immunization Date Immunization Notes Care Provider Tyra dailey 03-20-2013 pneumococcal polysaccharide vaccine, 23 valent Milvia Palomo [facility] Payers Date Payer Category Payer Unknown ALLIED BENEFIT S [employer] ALLIED [employer] [id number] 2023-Present [address] [place] [id number] 2023 Unknown [id number] 2023 Private Health Insurance [id number] 2022 Self-pay [id number] 2018 Medicare MEDICARE MEDICAR E PART A AND B xxxxxxxxxxx 2018-Present [phone] [place] [address] xxxxxxxxxxx [id number] 1997 Medicare [id number] .[id number] 1965 Unknown [id number] 2.16.840.1.371689.3.579.2 .1259 1959 Medicare [id number] 1955 Unknown [id number] 2.16.840.1.980165.3.579.2 .175 1955 Unknown [id number] 2.16.840.1.962647.3.579.2 .593 1955 Unknown [id number] 2.16.840.1.107458.3.579.2 .593 1955 Unknown [id number] 2.16.840.1.989772.3.579.2 .593 1955 Unknown [id number] 2.16.840.1.160042.3.579.2 .593 1955 Unknown [id number] 2.16.840.1.361392.3.579.2 .593 1955 Unknown [id number] 2.16.840.1.789259.3.579.2 .593 1955 Unknown [id number] 2.16.840.1.702216.3.579.2 .593 1955 Unknown [id number] 2.16.840.1.141317.3.579.2 .593 1955 Unknown [id number] 2.16.840.1.528581.3.579.2 .727 1955 Unknown [id number] 2.16.840.1.583101.3.579.2 .727 1955 Unknown [id number] 2.16.840.1.446904.3.579.2 .727 1955 Unknown [id number] 2.16.840.1.436515.3.579.2 .727 1955 Unknown [id number] 2.16.840.1.904916.3.579.2 .727 1955 Unknown [id number] 2.16.840.1.732213.3.579.2 .72 1955 Unknown [id number] 2.16.840.1.843506.3.579.2 .72 1955 Unknown [id number] 2.16.840.1.128022.3.579.2 .1955 Unknown [id number] 2.16.840.1.339676.3.579.2 .1955 Unknown [id number] 2.16.840.1.038034.3.579.2 .1955 Unknown [id number] 2.16.840.1.754245.3.579.2 .72 1955 Unknown [id number] 2.16.840.1.489912.3.579.2 .1955 Unknown [id number] 2.16.840.1.078624.3.579.2 .727 1955 Unknown [id number] 2.16.840.1.092509.3.579.2 .125 1955 Unknown [id number] 2.16.840.1.337458.3.579.2 .1259 1955 Unknown [id number] 2.16.840.1.912241.3.579.2 .1258 1955 Unknown [id number] 2.16.840.1.601205.3.579.2 .1259 1955 Unknown [id number] 2.16.840.1.619729.3.579.2 .125 1955 Unknown [id number] 2.16.840.1.540450.3.579.2 .1259 Unknown [id number] Medicare Medicare Outpatient [id number] Private Health Insurance [facility] [id number] Unknown [id number] 2.16.840.1.880618.3.579.2 .531 Social History Date Type Detail Facility Start: 06-06-2019 End: 08-05-2023 Tobacco smoking status MIIS Never smoker [facility] Start: 06-06-2019 End: 10-16-2024 Alcohol intake Never [place] Start: 06-05-2019 History SDOH Alcohol Frequency 1 [place] Start: 1955 Sex Assigned At Not on file [place] Tobacco smoking status Never [facility] Start: 06-25-2021 End: 08-04-2022 Tobacco smoking status MIIS Ex-smoker (finding) [facility] Start: 1955 Sex Assigned At Male F [facility] Start: 08-05-2023 Tobacco use and exposure Smokeless tobacco non-user [facility] Start: 09-26-2023 End: 10-16-2024 Alcohol intake Ex-drinker (finding) [facility] Start: 09-26-2023 End: 10-16-2024 History of Social function [facility] Medical Equipment Procedure Code Equipment Code Equipment Origin al Text Equipment Identifier Dates 1 each by In Vit ro route in the morning and 1 each in the evening and 1 each before bedtime. [id number] Start: 09-26-2023 1 each in the morning and 1 each in the evening and 1 each before bedtime. [id number] Start: 09-26-2023 Functional Status Date Assessment Result Facility 02-02-2023 Functional Status N/A [facility] 11-03-2022 Functional Status N/A [facility] 10-06-2022 Functional Status N/A [facility] 08-04-2022 Functional Status N/A [facility] 06-30-2022 Functional Status No [facility] 06-25-2022 [facility] Status N[facility] Functional Status N/A [facility] 04-21-2022 Functional Status N/A [facility] Clinical Notes 04-21-2022 to 10-29-2024 Adilson Salazar MD - 10/16/2024 3:25 PM Kyle Salazar MD - 10/16/2024 3:25 PM Kyle Salazar MD - 10/16/2024 3:25 PM Kyle Salazar MD - 10/16/2024 3:24 PM EST Note Date & Type Note Facility 10-29-2024 Note [facility] Department of Radiation Oncology [address] [place] [address] RADIATION ONCOLOGY FOLLOW UP NOTE Date of Service: 10/29/24 Patient Name: Eunice Marte Patient : 1955 Diagnosis: 68 y.o. man diagnosed in June 2022 with intermediate risk prostate cancer (cT2a N0 M0 Stage IIB, PSA 11.09 ng/mL, GG2) with a high-risk Decipher genomic score 0.73, completed a course of moderately hypofractionated external beam radiotherapy on 08/02/2023, was on relugolix/Orgovyx. Chief Complaint: I have prostate cancer. Interval Hx: Mr. Marte returns in a follow up visit. We last saw him in October 2023. Since then, he's been feeling very tired, states he sleeps a lot. Only exercise he gets is walking around his house. PSA remains very low, but his testosterone is slowly increasing. Patient is unsure if he's still taking Orgovyx. Denies blood in stool, hematuria, constipation, diarrhea, painful defecation, cold intolerance, starting stream or emptying the bladder. He reports frequent nocturia, which has disturbed his sleep. He will see Dr. Acosta in January. Overall, he is delighted with his quality of life due to urinary symptoms with an AUA of 6/35. He reports incomplete emptying about half the time, nocturia three times, and intermittency, urgency, weak stream, and straining not at all. Mild incontinence. THANH score of 1/25. Original Consultation History of Present Illness: Patient presents in initial Radiation Oncology consultation as per the request of Dr. Acosta. We have been asked to evaluate the patient for radiotherapy options. Mr. Eunice Marte is a 67 y.o. man with extensive medical history (HTN, HLD, Diabetes Mellitus Type 2, CKD III, Stroke (04/2015 resulted in right sided weakness since has improved), CAD, MD in 2021 on ASA 81mg s/p implantable [...] Exam: Wt Readings from Last 5 Encounters: 10/29/24 104 kg (230 lb) 10/15/24 103 kg (228 lb) 08/07/24 108 kg (238 lb 12.8 oz) 06/01/24 108 kg (239 lb) 04/10/24 112 kg (247 lb) VS Reviewed. GENERAL: ECOG 2, well-appearing, in [...] with ambulation. Pityriasis versicolor appreciated on forearms b (more content not included)... [facility] 10-16-2024 History of Present illness Narrative Associated Problem(s): Heart failure with improved ejection fraction (HFimpEF) ([facility]) Edema stable and continue medication. Associated Problem(s): Multi-infarct dementia, uncomplicated (CMS/HCC) Monitor. Associated Problem(s): Prostatic cancer (CMS/HCC) Follow with urology. Associated Problem(s): Type 2 diabetes mellitus with hyperglycemia (CMS/HCC) Not checking BS and due for A1C. Stick to ADA diet and limit carbs. Associated Problem(s): Essential hypertension, benign (CMS/HCC) BP elevated but controlled at home and monitor PRN. Associated Problem(s): Diverticulitis Recent infection but improved. Stick to high fiber diet. Images from the original note were not included. Subjective Patient ID: Eunice Marte is a 68 y.o. male who presents for [facility] follow up . Hospital follow up from 10/01-10/03 for fever and diverticulitis. Developed confusion and altered mental status. Temp 102 at home. To ER and WBC normal. Flu and covid negative. Admitted for treatment. Concerned of diverticulitis and started rocephin and flagyl. Improved in hospital and discharged. Doing well since home. Back to normal and strength slowly improving. Not checking BS and due for A1C. Tries to eat well and stick to ADA diet. Checking BP PRN and typically controlled. BP normal today. Taking medication daily and tolerating without side effects. Review of Systems Constitutional: Negative for fatigue. [...] Essential hypertension, benign (CMS/HCC) BP elevated but controlled at home and monitor PRN. Type 2 diabetes mellitus with hyperglycemia (CMS/HCC) - Primary Not checking BS and due for A1C. Stick to ADA diet and limit carbs. Relevant Orders Microalbumin / creatinine, urine ratio Hemoglobin A1c Diverticulitis Recent infection but improved. Stick to high fiber diet. documented in this encounter [facility] 08-07-2024 Note aPATIENT: Eunice noble DATE OF : 1955 DATE OF VISIT: 08/07/24 Urology Clinic H&P PHYLLIS ACOSTA M.D., F.A.C.S. 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 Eunice Marte is a 68 y.o. -Turk[place] male with history of HTN, HLD, Diabetes Mellitus Type 2, Stroke (04/2015 resulted in right sided weakness since has improved), CAD, MD in 2021 on ASA 81mg s/p implantable [...] urologist Milvia Daniel MD on 07/06/2022 at [facility] for a total of 24 cores (12 systematic cores x2 and 4 cores obtained from MARÍA ELENA #1). Pathology per [facility] review revealed acinar adenocarcinoma of the [...] distant metastatic disease. Decipher prostate biopsy genomic flipping machine operator was obtained on prostate biopsy above, [...] foot swelling resolved without intervention. Prior AUA-SI 16, QoL 5 (unhappy) despite [...] nodule, cT2a. I reviewed and discussed outside field consultant note, outside laboratory tests, outside imaging including MRI prostate and PSMA, pathology result of prostate biopsy, and decipher score. Mr. Marte has unfavorable intermediate risk prostate cancer by NCCN criteria since he has 2 intermediate risk factors (PSA 11.09 ng/mL and GG2 prostate cancer), however, decipher genomic flipping machine operator designate patient as a high risk [...] bone mineral density (more content not included)... [facility] 07-02-2024 History of Present illness Narrative Associated Problem(s): Type 2 diabetes mellitus with hyperglycemia ([facility]) Reports BS elevated and due for A1C. Stick to ADA diet and limit carbs. Associated Problem(s): Heart failure with improved ejection fraction (HFimpEF) ([facility]) Edema stable and continue medication. Associated Problem(s): Essential hypertension, benign ([facility]) BP elevated but previously controlled and monitor PRN. Associated Problem(s): 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 ([facility]) Continue medication and follow with cardiology. Images [...] Items Addressed This Visit Essential hypertension, benign ([facility]) BP elevated but previously controlled and monitor PRN. Type 2 diabetes mellitus with hyperglycemia ([facility]) - Primary Reports BS elevated and due for A1C. Stick to ADA diet and limit carbs. Relevant Orders Hemoglobin A1c 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 ([facility]) Continue medication and follow with cardiology. Heart failure with improved ejection fraction (HFimpEF) ([facility]) Edema stable and continue medication. documented in this encounter [facility] 06-01-2024 Note IN Cardiology - [facility] Subjective Eunice [...] Diagnosis Prostate cancer (CMS/HCC) Cerebrovascular accident (CVA) ([facility]) History of diabetes mellitus History of DVT (deep vein thrombosis) History of hypertension History of ischemic left MCA stroke Hypercholesterolemia Hypertension Partial seizure (CMS/HCC) Type 2 diabetes mellitus without complication, with long-term current use of insulin (CMS/HCC) Osteoarthritis of knee Malignant neoplasm of prostate (CMS/HCC) NSTEMI (non-ST elevated myocardial infarction) ([facility]/H[facility]) Chest pain BPH associated with nocturia Essential hypertension, benign Type 2 diabetes mellitus with hyperglycemia (CMS/HCC) Vitamin D deficiency ALLIOSN on CPAP Acute anemia Chronic systolic heart failure (CMS/HCC) senior living (current) use of insulin ([facility]) Mixed hyperlipidemia Elevated lipoprotein(a) 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 Family History Problem [...] Rfl: 11 ezetimi (more content not included)... [facility] 05-18-2024 History of Present illness Narrative [...] infarction) (CMS/HCC) Recent admission and cath in February normal. Continue medication and follow with cardiology. Associated Problem(s): 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 (CMS/HCC) Continue medication and follow with cardiology. Images from the original note were not included. Subjective Patient ID: Eunice Marte is a 68 y.o. male who presents for Follow-up ([facility] hospital f/u). Hospital follow up from 05/09-05/11 for [...] and continue medication. 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 (CMS/HCC) Continue medication and follow with cardiology. Single subsegmental pulmonary embolism without acute cor pulmonale (CMS/HCC) - Primary Recent PE and continue Eliquis. Prior DVT years ago and need life long anticoagulation. Pneumonia of right lower lobe due to infectious organism Recent pneumonia and complete levaquin. NSTEMI (non-ST elevated myocardial infarction) (CMS/HCC) Recent admission and cath in February normal. Continue medication and follow with cardiology. documented in this encounter [facility] 05-02-2024 History of Present illness Narrative Associated Problem(s): Type 2 diabetes mellitus with hyperglycemia (CMS/HCC) BS stable and add ozempic. Associated Problem(s): Heart failure with improved ejection fraction (HFimpEF) (CMS/HCC) Worsening edema and start lasix. Add ozempic. Stop actos as possibly causing edema. If no improvement will need to add aldactone. Associated Problem(s): Essential hypertension, benign (CMS/HCC) BP elevated but previously controlled and monitor PRN. Associated Problem(s): 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 (CMS/HCC) Add ozempic [...] Items Addressed This Visit Essential hypertension, benign ([facility]) BP elevated but previously controlled and monitor PRN. Type 2 diabetes mellitus with hyperglycemia ([facility]) BS stable and add ozempic. Relevant Medications semaglutide (Ozempic, 0.25 or 0.5 MG/DOSE,) 2 MG/1.5ML solution pen-injector 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 ([facility]) Add ozempic and follow with cardiology. Heart failure with improved ejection fraction (HFimpEF) ([facility]) - Primary Worsening edema and start lasix. [...] q-tips inside ear. documented in this encounter [facility] 04-17-2024 Note Called to try to do [id number] and it was approved for a year. Medication must be filled at [facility] specialty pharmacy. Will ask Rx to be sent there and follow-up to make sure the patient receives it. July Rankin, JackyD, BCACP 04/25/24 3:05 PM [facility] [phone] [facility] 04-17-2024 Note Specialty Pharmacy [place]: Rep[facility] Supervising Physician & Clinic:?? Vivian Billy NP; cardiology Eunice Marte is a 68 y.o. year old male patient with PMH of: Past Medical History: Diagnosis Date Asthma BPH (benign prostatic hyperplasia) CAD (coronary artery disease) CKD (chronic kidney disease), stage III ([facility]) Depression DM (diabetes mellitus) ([facility]) 2007 Type II Erectile dysfunction GERD (gastroesophageal reflux disease) H/O deep venous thrombosis HLD (hyperlipidemia) HTN (hypertension) Myocardial infarction ([facility]) 2021 ALLISON on CPAP Prostate cancer ([facility]) Status post placement of implantable loop recorder Stroke ([facility]) 04/2015 right sided weakness Patient Active Problem List Diagnosis Prostate cancer ([facility]) Cerebrovascular accident (CVA) ([facility]) History of diabetes mellitus History of DVT (deep vein thrombosis) History of hypertension History of ischemic left MCA stroke Hypercholesterolemia Hypertension Partial seizure ([facility]) Type 2 diabetes mellitus without complication, with long-term current use of insulin ([facility]) Osteoarthritis of knee Malignant neoplasm of prostate ([facility]) NSTEMI (non-ST elevated myocardial infarction) ([facility]) Chest pain BPH associated with nocturia Essential hypertension, benign Type 2 diabetes mellitus with hyperglycemia ([facility]) Vitamin D deficiency ALLISON on CPAP Acute anemia Chronic systolic heart failure ([facility]) salvage determiner (current) use of insulin ([facility]) Mixed hyperlipidemia Elevated lipoprotein(a) 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 Allergies Allergen Reactions [...] and submit PA on CMMs. ? July Rankin, PharmD, BCACP 04/17/24 2:13 PM [facility] [phone] [facility] 04-17-2024 Note PA still in process, follow up on 04/23 for PA status. Rajiv Lora, Ingredient Scaler [facility], [id number] 04/19/24 11:16 AM [facility] 04-17-2024 Note I called the patient and he received the medication and does not have any questions at this time. Antoinette Gan [facility] 05/01/24 2:05 PM [facility] 04-17-2024 Note Received paper copy of the [...] consent form. Will prepare appeal. July Rankin, JackyD, BCACP 04/24/24 11:31 AM [facility] [phone] [facility] 04-17-2024 Note Prior Authorization for Repatha has been denied on 04/20/24. Due to the Lipid panel on 03/15/24 being normal, Will fax appeal with LPA and ASCVD-related documents. Contacted prescriber and was told that due to the ASCVD history the goal for the LDL is actually <55, making him a candidate for the medication. Follow up on 04/26/24. Rajiv Lora, Ingredient [facility], [id number] 04/24/24 10:31 AM [facility] 04-17-2024 Note New script for Repat wilhelm received to treat E78.2, I25.10 mixed hyperlipidemia and Atherosclerotic heart disease. PA required? Yes Routed to [facility] for initial workup. Reddy Barnard, [facility] 04/17/24 at 11:40 AM [facility] 04-17-2024 Note PA was submitted via [facility], waiting on a determination. Antoinette Gan [facility] 04/17/24 3:38 PM [facility] 04-17-2024 Note PharmD Consult - PCS [...] LDL, Apo-B, and Lp(a). [facility] sent [facility] to determine coverage and provide education to patient. Iarsema White, PharmD, PGY1 Orthodontist Assistant [facility] 04/17/24 [facility] 04-10-2024 Note [place] Cardiology - [facility] Heart and Vascular Center Asher Marte [...] GERD, left MCA CVA in 2014, and MD in 2021. On 03/12/2024 he reported chest pain and chest tightness w/o radiation at home, and was transported to [facility] via ambulance. In the ambulance, his pain resolved with the administration of asprin and nitroglycerine. His troponin on arrival to [place] ED was 104.3, so he was transferred to [facility] ED on the morning of 03/13/2024 [...] Patient Active Problem List Diagnosis Prostate cancer ([facility]) Cerebrovascular accident (CVA) ([facility]) History of diabetes mellitus History of DVT (deep vein thrombosis) History of hypertension History of ischemic left MCA stroke Hypercholesterolemia Hypertension Partial seizure ([facility]) Type 2 diabetes mellitus without complication, with long-term current use of insulin ([facility]) Osteoarthritis of knee Malignant neoplasm of prostate ([facility]) NSTEMI (non-ST elevated myocardial infarction) ([facility]) Chest pain BPH associated with nocturia Essential hypertension, benign Type 2 diabetes mellitus with hyperglycemia ([facility]) Vitamin D deficiency ALLISON on CPAP Acute anemia Chronic systolic heart failure ([facility]) salvage determiner (current) use of insulin ([facility]) Mixed hyperlipidemia Elevated lipoprotein(a) 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 Family History Problem [...] Normal heart elbert (more content not included)... [facility] 03-14-2024 Note Attestation signed by Arnoldo [...] PCSK9 inhibitor as outpatient. Arnoldo Killian MD, [facility] Cardiology Progress Note Subjective Subjective: Eunice [...] 03/14/24 0000 123/70 36.3 ???C (97.3 ???F) 69 14 99 % -- 03/13/24 2000 150/79 36.2 ???C (97.2 ???F) 68 16 100 % -- Physical Examination: [...] Value Ventricular Rate 58 Atrial Rate 58 ME Interval 232 QRS DURATION 82 QT Interval 446 QTC CALCULATION(BAZETT) 437 P [place] 62 R-[place] 4 T Wave [place] 49 Impression Sinus bradycardia with 1st degree A-V block Otherwise normal ECG When compared with ECG of 23-FEB-2023 14:05, ME interval has increased Criteria for Septal infarct are no longer Present T wave inversion no longer evident in Inferior lead Confirmed by Nina SCOTT, MICHI Rodriguez ([id number]) on 03/13/2024 1:44:00 PM Lab Results Component Value Date TROPONINI 0.03 03/13/2024 Complete Echo (TTE) w/wo Imaging Agent, Strain, 3D, Bubble Study Result Date: 03/13/2024 1 1 [place] [facility] Heart Station [address] [place] [address] [phone] (fax) Echocardiogram-[facility] Name: EUNICE MARTE Study Date: 03/13/2024 09:36 AM B/P: 141 mmHg/87 mmHg HR: Date of : 1955 Location: [facility] Height: 73 in. Age: 68 year(s) [...] - 4cm) Aorti (more content not included)... [facility] 03-14-2024 Note Hospital Medicine Discharge Summary [...] GERD, left MCA CVA in 2014, and MD in 2021. On 03/12/2024 he reported chest pain and chest tightness w/o radiation at home, and was transported to [facility] via ambulance. In the ambulance, his pain resolved with the administration of asprin and nitroglycerine. His troponin on arrival to [place] ED was 104.3, so he was transferred to [facility] ED on the morning of 03/13/2024 [...] [address] Marie MD, James is advised to follow up with you within 1-2 weeks. Follow-up with: None Scheduled appointments: Future Appointments Date Time Provider Department Center 04/10/2024 9:15 AM Vivian Billy NP [facility] 08/07/2024 10:15 AM Phyllis Acosta MD [facility] ON[facility] 10/29/2024 10:00 AM Silvano Martinez [facility] RAD ON[facility] Your medication list CHANGE how you [...] At Discharge: Pen (more content not included)... [facility] 03-14-2024 Note Patient: Eunice Ordaz lbwilder Procedure Information Date/Time: 03/14/24 1024 Procedure: Coronary angiography Location: [facility] PORTER SAMPLE CASE 2 BIPLANE / [facility] (Cath) Providers: Mata [...] Plan discussed with attending. Additional Equipment Requests [facility] 03-14-2024 Note Hospital Medicine Daily Progress Note - 03/14/2024 11:50 AM; Room: 3104/3104-01 Admission: 03/13/2024 4:55 AM; Length of stay: 1 days THE HOSPITALIST TEAM PREFERS TO USE [employer] CHAT FOR COMMUNICATION 7AM-7PM. IF I DO NOT RESPOND WITHIN 15 MINUTES, PLEASE PAGE ME/CALL THROUGH THE GEOTECHNICAL INTERN. FROM 7PM-7AM, PLEASE PAGE [phone](COVR) Code Status: Full Code Barriers to Discharge: [...] GERD, left MCA CVA in 2014, and MD in 2021. On 03/12/2024 he reported chest pain and chest tightness w/o radiation at home, and was transported to [facility] via ambulance. In the ambulance, his pain resolved with the administration of asprin and nitroglycerine. His troponin on arrival to [place] ED was 104.3, so he was transferred to [facility] ED on the morning of 03/13/2024 [...] Principal Problem: NSTEMI (non-ST elevated myocardial infarction) ([facility]) Active Problems: Hypercholesterolemia Chest pain BPH associated with nocturia Essential hypertension, benign Type 2 diabetes mellitus with hyperglycemia ([facility]) ALLISON (obstructive sleep apnea) Acute anemia Chronic systolic heart failure ([facility]) senior living (current) use of insulin ([facility]) Assessment and Plan Chest Pain; NSTEMI vs. [...] recorder in place; (more content not included)... [facility] 03-13-2024 Note Case was discussed w ith the ZACH on 03/13/2024. I agree with the history, physical, assessment, and plan of care. I discussed the findings and therapeutic plan. I agree with the documentation, except for any updates below. Puja Montes De Oca MD [facility] 03-13-2024 Note 03/13/24 1351 Admission Assessment [...] Interested Does the patient have a case folder assigned to them through their insurance? No Living Arrangement (Current/Prior to Hospitalization) Private residence;Home self care (lives w/family in one story home. No entry stairs) Does the patient have history of HHC or SNF? Yes (HHC in past does not recall name. Was in a rehab facility in [place]) Assistive Device Cane;Other (Comment) (CPAP) Patient's goal [...] you able to send link and activate [email or web address]? No [facility] 03-13-2024 Note Hospital Medicine History and Physical 03/13/2024 8:16 AM THE HOSPITALIST TEAM PREFERS TO USE [employer] CHAT FOR COMMUNICATION 7AM-7PM. IF I DO NOT RESPOND WITHIN 15 MINUTES, PLEASE PAGE ME/CALL THROUGH THE GEOTECHNICAL INTERN. FROM 7PM-7AM, PLEASE PAGE [phone](COVR) Chief Complaint No chief complaint on file. History of Present Illness Eunice Marte is an 68 y.o. male who came from [facility] with NSTEMI. Patient has past medical history of hyperlipidemia, hypertension, CKD 3, diabetes mellitus type 2 with long-term use of insulin, CVA in 2014, MD in 2021. Patient reports last night he began to have chest pain while watching TV, described as tightness in the middle of his chest, no radiation. Patient received nitro and aspirin en route to the [facility] which relieved his chest pain. His [...] Date Noted NSTEMI (non-ST elevated myocardial infarction) ([facility]) 03/13/2024 Chest pain 03/13/2024 BPH associated with nocturia 08/05/2023 Essential hypertension, benign 08/05/2023 Type 2 diabetes mellitus with hyperglycemia ([facility]) 08/05/2023 Vitamin D deficiency 08/05/2023 History of diabetes mellitus 01/28/2023 History of DVT (deep vein thrombosis) 01/28/2023 History of hypertension 01/28/2023 History of ischemic left MCA stroke 01/28/2023 Partial seizure ([facility]) 01/28/2023 Prostate cancer ([facility]) 11/30/2022 Cerebrovascular accident (CVA) ([facility]) 06/05/2019 Hyperlipidemia 01/16/2014 Hypertension 01/16/2014 Type 2 diabetes mellitus without complication ([facility]) 01/16/2014 Osteoarthritis of knee 01/16/2014 Malignant neoplasm of prostate ([facility]) 05/30/2023 Assessment and Plan NSTEMI r/o ischemia [...] hyperglycemia SSI ACHS (more content not included)... [facility] 02-14-2024 Note aPATIENT: Eunice noble DATE OF : 1955 DATE OF VISIT: 02/14/24 Urology Clinic H&P PHYLLIS ACOSTA M.D., F.A.C.S. 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 Eunice Marte is a 68 y.o. -Turkmen male with history of HTN, HLD, Diabetes Mellitus Type 2, Stroke (04/2015 resulted in right sided weakness since has improved), CAD, MD in 2021 on ASA 81mg s/p implantable [...] urologist Milvia Daniel MD on 07/06/2022 at [facility] for a total of 24 cores (12 systematic cores x2 and 4 cores obtained from MARÍA ELENA #1). Pathology per [facility] review revealed acinar adenocarcinoma of the [...] distant metastatic disease. Decipher prostate biopsy genomic flipping machine operator was obtained on prostate biopsy above, [...] nodule, cT2a. I reviewed and discussed outside field consultant note, outside laboratory tests, outside imaging including MRI prostate and PSMA, pathology result of prostate biopsy, and decipher score. Mr. Marte has unfavorable intermediate risk prostate cancer by NCCN criteria since he has 2 intermediate risk factors (PSA 11.09 ng/mL and GG2 prostate cancer), however, decipher genomic flipping machine operator designate patient as a high risk [...] systolic function, EF (more content not included)... [facility] 02-02-2023 Hospital Discharge instructions Patient Education [...] the likelihood that the cancer will spread. Gardiner 6 or lower: This indicates that the cancer cells look similar to normal prostate cells (well differentiated). Gardiner 7: This indicates that the cancer cells [...] stress of having cancer. General instructions Take lgas-isj-rdjvbmt and prescription medicines only as told by your health care provider. If you have to go to the hospital, notify your cancer specialist (oncologist). Keep all follow-up visits. This is important. Where to find more information [employer] [employer]: www.cancer.org [place] Society of Clinical Oncology: www.cancer.net National Cancer [place]: www.cancer.gov Contact a health care provider if: [...] provider. Document Revised: 11/04/2021 Document Reviewed: 11/04/2021 Elsevier Patient Education 2022 [employer]. Follow Up Care 11/03/2022 08:38:11 With:Milvia Palomo MD, URL, URO Address: When: Unknown [facility] Hospital Discharge instructions Patient Education [...] who: Are older than age 65. Are -Turkmen. Are obese. Have a family history of [...] cells. Follow these instructions at home: Take jzml-hid-nxutgdh and prescription medicines only as told by [...] 08/08/2006 Document Revised: 07/21/2018 Document Reviewed: 04/18/2017 [employer] Patient Education 2020 [employer]. Follow Up Care 10/06/2022 08:46:11 With:Dewey COTTO, ARIAN Alegria, URO Address: When: Unknown [facility] 10-06-2022 Hospital Discharge instructions Patient Education 10/06/2022 [...] 07/25/2013 Document Revised: 03/28/2019 Document Reviewed: 03/28/2019 [employer] Patient Education 2020 [employer]. 10/06/2022 08:07:38 Brachytherapy for Prostate Cancer Brachytherapy [...] including vitamins, herbs, eye drops, creams, and ugtv-uvh-dxtqooo medicines. Any problems you or family members [...] 01/16/2007 Document Revised: 07/21/2018 Document Reviewed: 08/17/2017 [employer] Patient Education 2020 [employer]. 10/06/2022 08:07:36 Laparoscopic Prostatectomy Laparoscopic Prostatectomy Laparoscopic [...] including vitamins, herbs, eye drops, creams, and sghg-phi-rbbdybh medicines. Any problems you or family members [...] 08/08/2006 Document Revised: 07/21/2018 Document Reviewed: 07/25/2017 [employer] Patient Education 2020 [employer]. 10/06/2022 07:50:11 Prostate Cancer Prostate Cancer The [...] who: Are older than age 65. Are -Turkmen. Are obese. Have a family history of [...] cells. Follow these instructions at home: Take jkzh-oie-erevebk and prescription medicines only as told by [...] 08/08/2006 Document Revised: 07/21/2018 Document Reviewed: 04/18/2017 [employer] Patient Education 2020 [employer] Follow Up Care 08/04/2022 10:29:21 With:Milvia Palomo MD, URL, URO Address: When: Unknown [facility] [place] 08-04-2022 Hospital Discharge instructions Patient Education 08/04/2022 [...] including vitamins, herbs, eye drops, creams, and gzhl-zou-ttekusb medicines. Any problems you or family members [...] 01/16/2007 Document Revised: 07/21/2018 Document Reviewed: 08/17/2017 [employer] Patient Education 2020 [employer]. Follow Up Care 06/02/2022 10:42:40 With:Dewey COTTO, Milvia Lucia URBess, URO Address: When:1 month Comments:Discuss PSMA PET scan & treatment options [facility] 07-21-2022 Note OPERATIVE NOTE OPERATION DATE: 07/21/2022 [...] in good condition. CC: Adilson Salazar M.D. [facility] 07-06-2022 Hospital Discharge instructions Patient [...] for your post-operative appointment in 1-2 weeks [phone] or [phone] Follow Up Care 06/02/2022 10:25:59 With:Milvia Palomo Address: [address] [place] [address]- [phone] Business (1) [facility] [address] [address]- [phone] Business (1) When: Unknown Comments:Office to followup appointment in 2 weeks for pathology review [facility] 07-06-2022 Evaluation + Plan note Extrac shelby from: Title:Post-anesthesia - General Author:Scout Dumont DO Date:07/06/22 Plan Transfer/ Discharge: Condition stable. Extracted from: Title:EU - MRI fusion transp erineal prostate biopsy Author:Milvia Palomo MD Date:07/06/22 Impression and Plan Diagnosis Elevated PSA ([id number]-ZS R97.20, Discharge, Medical). Diagnosis Elevated PSA (GTJ47-RW R97.20, Discharge, Medical). Counseled: Patient, Family. Extracted from: Title:Pre-anesthesia - Adult Author:Scout Lamas Jr., DO Date:07/06/22 Plan [place] [employer] of Anesthesiologists (ASA) physical status classification: Class III. Anesthetic Preoperative Plan Anesthesia: Monitored anesthesia care. Anesthetic plan, risks, benefits, and alternatives discussed with the patient and/or family. Patient verbalized understanding. Adverse reactions, complications, and alternatives discujssed. Consent signed and on chart.. Future Appointments Appointment Date:07/21/2022 09:30:00 AM Scheduled Provider:Dewey COTTO, Milvia Lucia Location:[facility] Appointment Type:URO Office Visit Appointment Date:10/12/2022 10:30:00 AM Scheduled Provider:Asim Tanner Jr., MD Location:[facility] Appointment Type:URO Office Visit [facility]11-14-2022 Note [id number]:127[facility] 06-25-2022 NoteChief Complaint consultation for LLQ pain [...] mL, NEB, BID c (more content not included)...[facility] Comment: Electronically Signed By: BASIL COTTO, Curtis Monzon\Date and Time Signed: 06/25/22 15:55 [id number] Note [id number]:127[facility] 06-02-2022 Hospital Discharge instructions Patient Education 06/02/2022 [...] Follow these instructions at home: Medicines Take fayk-pik-eolztbo and prescription medicines only as told by [...] 08/05/2001 Document Revised: 07/21/2018 Document Reviewed: 08/24/2017 [employer] Patient Education 2020 [employer] Follow Up Care 04/21/2022 12:43:56 With:Dewey COTTO, ARIAN Alegria, URO Address: [address], [facility] [place] [address] [phone] When: Unknown [facility] 08-31-2022 Hospital Discharge instructions Patient Education 04/21/2022 [...] have oneof these risk factors: ?Being of -Turkmen descent. ?Having a family history of prostate [...] you: Are older than age 55. Are -Turkmen. Have a father, brother, or uncle who [...] 05/19/2018 Document Revised: 07/21/2018 Document Reviewed: 05/19/2018 [employer] Patient Education [employer]. Follow Up Care 03/08/2022 11:37:35 With:Milvia Palomo MD, [facility], URO Address: When: Unknown [facility] evaluation + Plan note Future Appointments Appointment Date:05/12/2022 10:45:00 AM Scheduled Provider:Milvia Palomo MD Location:[facility] Appointment Type:URO Office Visit Appointment Date:10/12/2022 10:30:00 AM Scheduled Provider:Asim Tanner Jr., MD Location:[facility] Appointment Type:URO Office Visit [facility] evaluation + Plan note Future Appointments Appointment Date:06/29/2022 03:30:00 PM Scheduled Provider: Location:[facility] Appointment Type:Surgical PAT FT Appointment Date:07/06/2022 01:30:00 PM Scheduled Provider: Location:[facility] Appointment Type:Surgery FT Appointment Date:07/21/2022 09:30:00 AM Scheduled Provider:Milvia Palomo MD Location:[facility] Appointment Type:URO Office Visit Appointment Date:10/12/2022 10:30:00 AM Scheduled Provider:Asim Tanner Jr., MD Location:[facility] Appointment Type:URO Office Visit [facility] evaluation + Plan note Future Appointments Appointment Date:06/29/2022 03:00:00 PM Scheduled Provider: Location:[facility] Appointment Type:Surgery PAT COVID Testing Appointment Date:06/29/2022 03:30:00 PM Scheduled Provider: Location:[facility] Appointment Type:Surgical PAT FT Appointment Date:07/06/2022 01:30:00 PM Scheduled Provider: Location:[facility] Appointment Type:Surgery FT Appointment Date:07/21/2022 09:30:00 AM Scheduled Provider:Milvia Palomo MD Location:[facility] Appointment Type:URO Office Visit Appointment Date:10/12/2022 10:30:00 AM Scheduled Provider:Asim Tanner Jr., MD Location:[facility] Appointment Type:URO Office Visit [facility] [place] Evaluation + Plan note Future Appointments Appointment Date:07/06/2022 01:30:00 PM Scheduled Provider: Location:[facility] Appointment Type:Surgery FT Appointment Date:07/21/2022 09:30:00 AM Scheduled Provider:Milvia Palomo MD Location:[facility] Appointment Type:URO Office Visit Appointment Date:10/12/2022 10:30:00 AM Scheduled Provider:Asim Tanner Jr., MD Location:[facility] App[facility]ment [facility] Future Appointments Appointment Date:09/15/2022 10:30:00 AM Scheduled Provider:Milvia Palomo MD Location:[facility] Appointment Type:URO Office Visit [facility] evaluation + Plan note Future Appointments Appointment Date:10/06/2022 07:45:00 AM Scheduled Provider:Milvia Palomo MD Location:[facility] Appointment Type:[facility] Future Appointments Appointment Date:11/03/2022 10:10:00 AM Scheduled Provider:Milvia Palomo MD Location:[facility] Appointment Type:URO Office Visit Diagnostic Tests Pending * PSA Free & Total 10/06/22 [facility] evaluation + Plan note Future Appointments Appointment Date:02/02/2023 10:15:00 AM Scheduled Provider:Milvia Palomo MD Location:[facility] Appointment Type:URO Office Visit [facility] evaluation noteNo assessment information available [facility] Work Phone: Evaluation note* Diagnosis Type 2 diabetes mellitus with hyperglycemia, with long-term current use of insulin (CMS/HCC) documented [facility] encounter [facility]* Diagnosis Type 2 diabetes mellitus with hyperglycemia, with long-term current use of insulin (CMS/HCC)- Primary Essential hypertension, benign (CMS/HCC) Essential hypertension, benign Type 2 diabetes mellitus with hyperglycemia, with long-term current use of insulin (CMS/HCC)- Primary Essential hypertension, benign (CMS/HCC) Essential hypertension, benign salvage determiner (current) use of insulin (Z79.4) Prostatic cancer (CMS/HCC) Malignant neoplasm of prostate Type 2 diabetes mellitus with hyperglycemia, with long-term current use of insulin (CMS/HCC)- Primary Essential hypertension, benign (CMS/HCC) Essential hypertension, benign Gastroesophageal reflux disease without esophagitis Esophageal reflux Prostatic cancer (CMS/HCC) Malignant neoplasm of prostate 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 (CMS/HCC)- Primary Type 2 diabetes mellitus with hyperglycemia, with long-term current use of insulin (CMS/HCC) Essential hypertension, benign (CMS/HCC) Essential hypertension, benign Heart failure with improved ejection fraction (HFimpEF) (CMS/HCC)- Primary Type 2 diabetes mellitus with hyperglycemia, with long-term current use of insulin (CMS/HCC) 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 (CMS/HCC) Essential hypertension, benign (CMS/HCC) Essential hypertension, benign Bilateral impacted cerumen Impacted cerumen Single subsegmental pulmonary embolism without acute cor pulmonale ([facility]/HCC)- Primary Pneumonia of right lower lobe due to infectious organism NSTEMI (non-ST elevated myocardial infarction) ([facility]) Acute myocardial infarction, subendocardial infarction, episode of care unspecified 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 ([facility]) Type 2 diabetes mellitus with hyperglycemia, with long-term current use of insulin ([facility]) Type 2 diabetes mellitus with hyperglycemia, with long-term current use of insulin ([facility])- Primary Essential hypertension, benign ([facility]) Essential hypertension, benign Heart failure with improved ejection fraction (HFimpEF) ([facility]) 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 ([facility]) documented in this encounter [facility] HealthcareEvaluation note* Diagnosis Heart failure with improved ejection fraction (HFimpEF) ([facility])- Primary Type 2 diabetes mellitus with hyperglycemia, with long-term current use of insulin ([facility]) 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 ([facility]) Essential hypertension, benign ([facility]) Essential hypertension, benign Bilateral impacted cerumen Impacted cerumen documented in this encounter [facility] HealthcareEvaluation note* Diagnosis Single subsegmental pulmonary embolism without acute cor pulmonale ([facility])- Primary Pneumonia of right lower lobe due to infectious organism NSTEMI (non-ST elevated myocardial infarction) ([facility]) Acute myocardial infarction, subendocardial infarction, episode of care unspecified 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 ([facility]) Type 2 diabetes mellitus with hyperglycemia, with long-term current use of insulin ([facility]) documented in this encounter [facility] HealthcareEvaluation note* Diagnosis Type 2 diabetes mellitus with hyperglycemia, with long-term current use of insulin ([facility])- Primary Essential hypertension, benign ([facility]) Essential hypertension, benign Type 2 diabetes mellitus with hyperglycemia, with long-term current use of insulin ([facility])- Primary Essential hypertension, benign ([facility]) Essential hypertension, benign senior living (current) use of insulin (Z79.4) Prostatic cancer ([facility]) Malignant neoplasm of prostate Type 2 diabetes mellitus with hyperglycemia, with long-term current use of insulin ([facility])- Primary Essential hypertension, benign (CMS/HCC) Essential hypertension, benign Gastroesophageal reflux disease without esophagitis Esophageal reflux Prostatic cancer (CMS/HCC) Malignant neoplasm of prostate 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 (CMS/HCC)- Primary Type 2 diabetes mellitus with hyperglycemia, with long-term current use of insulin (CMS/HCC) Essential hypertension, benign (CMS/HCC) Essential hypertension, benign Heart failure with improved ejection fraction (HFimpEF) (CMS/HCC)- Primary Type 2 diabetes mellitus with hyperglycemia, with long-term current use of insulin (CMS/HCC) 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 (CMS/HCC) Essential hypertension, benign (CMS/HCC) Essential hypertension, benign Bilateral impacted cerumen Impacted cerumen Single subsegmental pulmonary embolism without acute cor pulmonale (CMS/HCC)- Primary Pneumonia of right lower lobe due to infectious organism NSTEMI (non-ST elevated myocardial infarction) ([facility]) Acute myocardial infarction, subendocardial infarction, episode of care unspecified 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 (CMS/HCC) Type 2 diabetes mellitus with hyperglycemia, with long-term current use of insulin ([facility]) Type 2 diabetes mellitus with hyperglycemia, with long-term current use of insulin ([facility]/HCC)- Primary Essential hypertension, benign (CMS/HCC) Essential hypertension, benign Heart failure with improved ejection fraction (HFimpEF) (CMS/HCC) 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 (CMS/HCC) Type 2 diabetes mellitus with hyperglycemia, with long-term current use of insulin ([facility])- Primary Diverticulitis Diverticulitis of colon (without mention of hemorrhage) Essential hypertension, benign (CMS/HCC) Essential hypertension, benign Prostatic cancer (CMS/HCC) Malignant neoplasm of prostate Multi-infarct dementia, uncomplicated (CMS/[facility]) Vascular dementia, uncomplicated Heart failure with improved ejection fraction (HFimpEF) ([facility]) documented [facility] encounter [facility] Narrative No data available for this section [facility] Discharge instructions No data available for this section General Surgery [place] Progress note No data available for this section [facility] Discharge Instructions * Discharge Instr - JOSIE* [...] Primary Emergency Contact: shayy marte Relation: Spouse Ward Nurse needed? No Past Surgical History: No past surgical history on file. Immunization History: There is no immunization history on file for this patient. Active Problems: Patient Active Problem List Diagnosis Code Cerebrovascular accident (CVA) ([facility]) I63.9 Acute left hemiparesis ([facility]) G81.94 History of ischemic left MCA stroke [...] (99.8 kg) Mental Status: {IP PT MENTAL STATUS:69502} IV Access: { JOSIE IV ACCESS:788648461} Nursing Mobility/ADLs: Walking {CHP DME ADLs:525157234} Transfer {CHP DME ADLs:815609750} Bathing {CHP DME ADLs:954625740} Dressing {CHP DME ADLs:772805155} Toileting {CHP DME ADLs:721981130} Feeding {CHP DME ADLs:721887884} Study Abroad Advisor {P DME ADLs:886921534} Med Delivery { JOSIE MED Delivery:995269515} Wound Care Documentation and Therapy: Elimination: Continence: Bowel: {YES / NO:} Bladder: {YES / NO:} Urinary Catheter: {Urinary Catheter:509892340} Colostomy/Ileostomy/Ileal Conduit: {YES / NO:} Date of Last BM: Intake/Output Summary (Last 24 hours) at 06/08/2019 1738 Last data filed at 06/08/2019 1600 Gross per 24 hour Intake Output 950 ml Net -950 ml I/O last 3 completed shifts: In: - Out: 950 [Urine:950] Safety Concerns: { JOSIE Safety Concerns:134189938} Impairments/Disabilities: { JOSIE Impairments/Disabilities:287020575} Nutrition Therapy: Current Nutrition Therapy: { JOSIE Diet List:396193560} Routes of Feeding: {[facility] DME Other Feedings:853315107} Liquids: {[facility] liquid thickness:99971} Daily Fluid Restriction: {P DME Yes amt example:858184624} Last Modified Barium Swallow with Video (Video Swallowing Test): {Done Not Done Date:} Treatments at the Time of Hospital Discharge: Respiratory Treatments: Oxygen Therapy: {Therapy; copd oxygen:46401} Ventilator: { CC Vent List:166753828} Rehab Therapies: {THERAPEUTIC INTERVENTION:6912217210} Weight Bearing Status/Restrictions: {[facility] Weight Bearin} Other Medical Equipment (for information only, NOT a DME order): {EQUIPMENT:121977389} Other Treatments: Patient's personal belongings (please select all that are sent with patient): {[facility] DME Belongings:018903780} RN SIGNATURE: {Esignature:523142459} CASE MANAGEMENT/SOCIAL WORK SECTION Inpatient Status Date: 06/05/2019 Readmission Risk Assessment Score: Readmission Risk Risk of Unplanned Readmission: 13 Discharging to Facility/ Agency Name: [facility] Address: Fax: Dialysis Facility (if applicable) Name: Address: Dialysis Schedule: Phone: Fax: [employer]rapping/Intake Coordinator signature: at2:35 PM PHYSICIAN SECTION Prognosis: Good [...] PM EDT CLINICAL PHARMACY NOTE: MEDS TO [facility] Select Patient?: No Total # [...] Report called to [employer]. * Kosta Macedo, TRAINING OFFICER - 06/08/2019 2:39 PM EDT Physical Therapy Facility/Department: [address] Daily Treatment Note NAME: Eunice Marte [...] Type 2 Diabetes _x__ Be safe with [place] teaching sheet / [facility] Disposal of Household Generated Sharps _x__ Type 2 Diabetes and Adding Insulin fold out with survival skills Contact number provided. Patient stated willing to follow up for outpatient DMED / work with [employer] chaudhary meal planing. Refer to Patient Education activity for more details. LUCRECIA CADE RN CDE * Keysha Urena SLP - 06/08/2019 11:58 AM EDT Speech Language Pathology Speech Language Pathology [facility] Cognitive Treatment Note Date: 06/08/2019 Patient s Name: Eunice Marte Diagnosis: Patient Active Problem List Diagnosis Code Cerebrovascular accident (CVA) ([facility]) I63.9 Acute left hemiparesis ([facility]) G81.94 History of ischemic left MCA stroke [...] Treatment completed by: Completed by: Erin Andrews, [place] Technician Clinician Cosigned By: Keysha Urena M.S.CCC/CONTACT AGENT * Kosta Macedo PTA - 06/08/2019 10:31 AM EDT DATE: 06/08/2019 NAME: Eunice Marte : 1955 Patient not seen this date for Physical Therapy due to: [] Blood transfusion in progress [] Hemodialysis [] Patient Declined [] Spine Precautions [] Strict Bedrest [x] Surgery/ Procedure VL DUP LOWER EXTREMITY VENOUS BILATERAL (Order #[id number]) on 06/08/19 [] Testing [] Other [] [...] years ago) who came to ED at [place] after having a presentation of acute onset of left- sided weakness that began around 5 PM on June 05, 2019. Patient refers that he was around his house around that area he was feeling weak but then noticed that he was slurring the speech, have a left-sided facial droop, left- sided hemiparesis. At the [place] NIH was calculated at 8 and decision was to give TPA. Patient was life flighted to [place] and was given hydralazine to control his [...] Risk) RECENT LABS: DATA CBC: Recent Labs 06/06/1990006/07/1942506/08/1940 WBC 7.3 7.4 7.1 HGB 16.4 16.7 16.8 HCT 49.9 51.5* 50.9* PLT 221 196 285 BMP: Recent Labs 06/06/1990006/07/1942506/08/1940 NA 137 135 134* K 3.9 3.4* [...] were no complications encountered. Cardiovascular Diseases [facility] CONSTITUTIONAL: negative for fatigue and malaise EYES: [...] Neurology Resident PGY-3 Neuro Critical Care Pager [phone] 06/08/2019 6:04 AM Associated attestation - Omer [...] signs taken. Pt sleepy, but easy to arouse.Information Systems Professor called to let her know procedure was done. * Sherrill Ivan, TRAINING OFFICER - 06/07/2019 3:12 PM EDT Physical Therapy DATE: 06/07/2019 NAME: Eunice Marte : 1955 Patient not seen this date for Physical Therapy due to: [] Blood transfusion in progress [] Hemodialysis [] Patient Declined [] Spine Precautions [] Strict Bedrest [x] Surgery/ Procedure--director of cardiac cath lab this afternoon [] Testing [] Other [] PT being discontinued at this time. Patient independent. No further needs. [] PT being discontinued at this time as the patient has been transferred to palliative care. No further needs. SHERRILL IVAN PTA * Tracey Rahman, DAMIÁN - 06/07/2019 1:53 PM EDT Patient arrived [...] EDT Speech Language Pathology Speech Language Pathology [facility] Speech / Cognitive Treatment Note Date: 06/07/2019 Patient s Name: Eunice Marte Diagnosis: Patient Active Problem List Diagnosis Code Cerebrovascular accident (CVA) ([facility]) I63.9 Acute left hemiparesis ([facility]) G81.94 History of ischemic left MCA stroke Z86.73 History of diabetes mellitus Z86.39 History of hypertension Z86.79 Pain: denies Cognitive Treatment Treatment time: 0515-9703 Subjective: [] Alert [] Cooperative [] Confused [...] days. Treatment completed by: Frances Schulz M.S. [facility]-CONTACT AGENT * Spike Worthy, DO - 06/07/2019 8:02 AM EDT Daily Progress Note Neuro Critical Care Patient Name: Eunice Marte Patient : 1955 Room/Bed: 0515/0515-01 CHIEF COMPLAINT: Complaining of left facial droop, left-sided hemiparesis, slurred speech INTERVAL HISTORY: Admission (06/05/2019) Case of a 63 y.o. male patient with PMH of HTN, Diabetes, Stroke (4 years ago) who came to ED at [place] after having a presentation of acute onset of left- sided weakness that began around 5 PM on June 05, 2019. Patient refers that he was around his house around that area he was feeling weak but then noticed that he was slurring the speech, have a left-sided facial droop, left- sided hemiparesis. At the [place] NIH was calculated at 8 and decision was to give TPA. Patient was life flighted to [place] and was given hydralazine to control his [...] Neurology Resident PGY-2 Neuro Critical Care Pager [phone] 06/07/2019 8:02 AM Associated attestation - Omer Zambrano MD - 06/07/2019 4:13 PM EDT NCC 63-year-old patient admitted to neuro ICU status post IV TPA administration for acute left hemiparesis Hx of old left cerebral infarction DM, HTN, HLD MRI brain with diffusion restriction, acute stroke in R jeffrey ventricular and BG area CTA showed no acute LVO, multifocal GUIDE TRAVEL stenotic area seen Neuro deficits of left [...] Ambulation Assistance: Independent Transfer Assistance: Independent Active Home Health Lvn: Yes Mode of Transportation: Car Occupation: Retired [...] Management Training, Self-Care / ADL, Neuromuscular Re-education [facility] Raw Score: 20 (06/06/19 123) [facility] ADL T-Scale Score : 42.03 (06/06/19 123) ADL Inpatient CMS 0-100% Score: 38.32 (06/06/191232) ADL Inpatient CMS G-Code Modifier : CJ [...] 06/06/2019 11:52 AM EDT Physical Therapy Facility/Department: [address] Initial Assessment NAME: Eunice Marte : 1955 Chief Complaint Patient presents with Cerebrovascular Accident The patient is a 63 y.o. male presented with acute onset of L sided weakness... He has had TIAs in the past, and states that this felt somewhat similar. He was brought to [place] ED where NIH was calculated to be [...] Ambulation Assistance: Independent Transfer Assistance: Independent Active Home Health Lvn: Yes Mode of Transportation: Car Occupation: Retired [...] Strength LUE: WFL Comment: pt c/o decreased machine deburrer strength for 2-3 days with dropping of [...] AM-PAC Inpatient T-Scale Score : 45.44 (06/06/19 114) Mobility Inpatient CMS 0-100% Score: 41.77 (06/06/19 [...] 10:16 AM EDT Speech Language Pathology Facility/Department: [address] Initial Speech/Language/Cognitive Assessment NAME: Eunice Marte [...] felt somewhat similar. He was brought to [place] ED where NIH was calculated to be [...] address noted deficits. Education provided. Recommendations: Requires CONTACT AGENT Intervention: Yes Duration/Frequency of Treatment: 3-5 x [...] 0911 Minutes 13 Completed by: Erin Andrews, [place] Technician Clinician Cosigned By: Keysha Urena M.S.CCC/CONTACT AGENT 06/06/2019 10:16 AM * Suellen Allen RN [...] years ago) who came to ED at [place] after having a presentation of acute onset of left- sided weakness that began around 5 PM on June 05, 2019. Patient refers that he was around his house around that area he was feeling weak but then noticed that he was slurring the speech, have a left-sided facial droop, left- sided hemiparesis. At the [place] NIH was calculated at 8 and decision was to give TPA. Patient was life flighted to [place] and was given hydralazine to control his [...] Neurology Resident PGY-3 Neuro Critical Care Pager [phone] 06/06/2019 5:57 AM Associated attestation - Omer Zambrano MD - 06/06/2019 5:24 PM EDT Patient admitted overnight, staffed this am. H & P from overnight addended. M Sudheer Zambrano MD * Gonzales Camarena MD - 06/05/2019 8:42 PM EDT [employer] [address] [place] [address] [employer] Flight Physician Pt Name:Eunice Marte Birthdate 1955 Date of evaluation: 06/05/19 PCP: Adilson Salazar MD REASON FOR FLIGHT Patient was transported from [place] to [place] due to stroke. Flight was indicated for further care at [facility] HISTORY OF PRESENT ILLNESS Eunice Marte is a 63 y.o. male who acute onset left-sided upper and lower extremity weakness while walking in his yard. Symptoms occurred at approximately 5 PM this afternoon. Patient's is arrived to [place] emergency department where he was found to [...] is warm and dry. No rash noted. MDM Eunice Marte is a 63 y.o. presenting with [...] CRITICAL CARE: None Destination Patient arrived at [place] in stable condition no significant changes in [...] FoundDocuments on File Type Date Recorded Patient Diving Supervisor Expl anation Advance Directives and Living Will Power of French Edge Operator Latest Code Status on File Code [...] Contact Diagnoses Stroke determined by clinical assessment ([facility]) Oscar Harp MD [address] [place] [address] [facility] Reason Comments Follow-up 3 m Fatigue No energy Reason Comments Follow-up Edema Hands and feet Shortness of Breath Winded easily Reason Comments Follow-up [facility] hospital f/u Reason Comments hsp follow up (unrecognized sect ion and content) No Status Records FoundNo Status Records FoundNo Status Records FoundNo Status Records FoundNo Status Records FoundNo Status Records Found INFORMATION SOURCE (unrecogn ized section and content) DATE CREATED AUTHOR 06/19/2019 [facility] DATE CREATED AUTHOR AUTHOR'S ORGANIZ ATION 11/21/2022 [facility] DATE CREATED AUTHOR AUTHOR'S ORGANIZ ATION 03/29/2023 [facility] DATE CREATED AUTHOR AUTHOR'S ORGANIZ ATION 10/07/2024 [facility] DATE CREATED AUTHOR AUTHOR'S ORGANIZ ATION 10/18/2024 [facility] EPIC DATE CREATED AUTHOR AUTHOR'S ORGANIZ ATION 11/02/2024 [facility] Care Team (unrecognized sect ion and content) Team Status: Inactive Member Role Status Dates Adilson Salazar MD Primary Care Provider Active Milvia Palomo MD Attending Provider Active Team Status: Active Member Role Status Dates Adilson Salazar MD Primary Care Provider Active Program Paraprofessional Relationship Specialty Start Date End Date Adilson Salazar MD PCP - General Family Medicine 05/25/23 Program Paraprofessional Relationship Specialty Start Date End Date Adilson Salazar MD PCP - General Family Medicine 05/25/23 Program Paraprofessional Relationship Specialty Start Date End Date Adilson Salazar MD [address] [place] [id number] PCP - General Family Medicine 03/28/24 Program Paraprofessional Relationship Specialty Start Date End Date Adilson Salazar MD [address] [place] [phone] PCP - General Family Medicine 03/28/24 Program Paraprofessional Relationship Specialty Start Date End Date Adilson Salazar MD [address] [place] [phone] PCP - General Family Medicine 03/28/24 Program Paraprofessional Relationship Specialty Start Date End Date Adilson Salazar MD [address] [place] [address] PCP - General Family Medicine 03/28/24 Program Paraprofessional Relationship Specialty Start Date End Date Adilson Salazar MD [address] [place] [phone] PCP - General Family Medicine 03/28/24 Program Paraprofessional Relationship Specialty Start Date End Date Adilson Salazar MD [address] [place] [address] PCP - General Family Medicine 03/28/24 Program Paraprofessional Relationship Specialty Start Date End Date Adilson Salazar MD [address] [place] [phone] PCP - General Family Medicine 03/28/24 Program Paraprofessional Relationship Specialty Start Date End Date Adilson Salazar MD [address] [place] [phone] PCP - General Family Medicine 03/28/24 Adilson Salazar MD [address] [place] [phone] PCP - ACO Reach 09/28/24 Program Paraprofessional Relationship Specialty Start Date End Date Adilson Salazar MD [address] [place] [phone] PCP - General Family Medicine 03/28/24 Adilson Salazar MD [address] [place] [phone] PCP - ACO Reach 09/28/24 Program Paraprofessional Relationship Specialty Start Date End Date Adilson Salazar MD [address] [place] [address] PCP - General Family Medicine 03/28/24 Adilson Salazar MD [address] [place] [address] PCP - ACO Reach 09/28/24 Goals (unrecognized section and content) Goals may [...] BE BASED ON THE PRIMARY CLINICAL RECORDS. [facility]. provides no warranty or guarantee of the accuracy or completeness of information in this document.
== END 2024-11-09 08:53 | disposition home or self-care (01) ==
LOC: CARD 08:52
PROVIDERS: PCP Family Medicine; Visit Provider Internal Medicine Cardiovascular Disease
DX: R68.89 Other general symptoms and signs (principal); R07.9 Chest pain, unspecified; I25.10 Atherosclerotic heart disease of native coronary artery without angina pectoris; I25.83 Coronary atherosclerosis due to lipid rich plaque; E11.65 Type 2 diabetes mellitus with hyperglycemia; Z79.4 Long term (current) use of insulin
CPT/HCPCS: 36415; 83036; 93306

== ENCOUNTER 2024-11-09 08:59 | Outpatient (OUT) | payer OTHER, MEDICARE, SELFPAY ==
[2024-11-09 10:13] LABS: Estimated Average Glucose 303 mg/dL; Glycohemoglobin A1C 12.2 % (4.5-6.2)
== END 2024-11-09 09:00 | disposition home or self-care (01) ==
LOC: LAB 09:03
PROVIDERS: PCP Family Medicine; Visit Provider Family Medicine
DX: E11.65 Type 2 diabetes mellitus with hyperglycemia (principal); Z79.4 Long term (current) use of insulin
CPT/HCPCS: 36415; 82043; 82570; 83036

== ENCOUNTER 2024-11-12 17:06 | Outpatient (REF) | payer OTHER, MEDICARE, SELFPAY ==
[2024-11-12 18:07] LABS: Creatinine Urine Random 78.82 mg/dL (20.00-300.00); Microalbum Creatinine Ratio Ur 41.8 mg/g (0.0-29.9); Microalbumin Urine Random 3.3 mg/dL (<=30.0)
== END 2024-11-12 17:07 | disposition home or self-care (01) ==
LOC: LAB 17:06
PROVIDERS: PCP Family Medicine; Visit Provider Family Medicine
DX: E11.65 Type 2 diabetes mellitus with hyperglycemia (principal); Z79.4 Long term (current) use of insulin
CPT/HCPCS: 82043; 82570

== ENCOUNTER 2025-05-12 07:05 | Emergency (ER) | payer OTHER, MEDICARE, SELFPAY ==
[2025-05-12] VITALS (16 sets, daily range): BP systolic 123–164; BP diastolic 72–102; PULSE 72–87; TEMP 37; O2SAT 96–99; BMI 31.2
--- NOTE | 2025-05-12 07:16 | XR_ITS ---
The [place] [id number] Patient Name: EUNICE FREEMAN MRN: [id number] date: 1955 Sex: M Assigned Patient Location: ED.MAIN Current Patient Location: ED.MAIN Accession/Order Number: [id number] Exam Date: 05/12/2025 07:47 Report Date: 05/12/2025 09:26 At the request of: DASHAWN SAAB MD Procedure: XR chest 1V PA CHEST: CLINICAL HISTORY: CP COMPARISON: 10/02/2024 The heart is normal in size. The lungs are clear. The pulmonary vasculature is normal. Mediastinum and hilar regions are unremarkable. No pleural effusions are seen. Visualized bones are intact. XR/XR chest 1V IMPRESSION: NEGATIVE CHEST. Impression dictated by: Je Jansen M.D. 05/12/2025 9:26 AM Dictation Location: [place] [id number] Electronically authenticated by: [id number] Y Date: 05/12/2025 09:26
--- NOTE | 2025-05-12 07:16 | ECG_ITS ---
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 Measurements Intervals [place] Rate: 85 P: 43 MS: 204 QRS: -16 QRSD: 86 T: 90 QT: 376 QTc: 418 Interpretive Statements 1100 Sinus rhythm 4068 Nonspecific Twave abnormality 9130 borderline ECG Compared to ECG 10/01/2024 11:08:48 No significant changes Electronically Signed On 05-12-2025 13:57:13 EDT by SAMREEN VEE M.D.
--- NOTE | 2025-05-12 07:17 | ED.GENADUL1 ---
HPI HPI - General Adult General Chief complaint: Chest Pain Stated complaint: CHEST PAIN Time Seen by Provider: 05/12/25 07:07 Source: patient Mode of arrival: walk-in History of Present Illness HPI narrative: 69-year-old male presents for chest pain. It is on the left side of his chest and it feels like squeezing and has been continuous for the last hour. It woke him up. No trauma fever or shortness of breath. He states feeling time he had pain like this is when he had a heart attack about 10 years ago. He states he has never had a heart catheterization Related Data Home Medications ?Medication ?Instructions ?Recorded ?Confirmed amlodipine 10 mg tablet 10 mg PO DAILY 07/16/23 10/01/24 ezetimibe 10 mg tablet 10 mg PO QAM 07/16/23 10/01/24 glipizide 10 mg tablet 10 mg PO BIDWM 07/16/23 10/01/24 lisinopril 20 1 tab PO BID 07/16/23 10/01/24 mg-hydrochlorothiazide 12.5 mg tablet metformin 500 mg tablet,extended 500 mg PO BID 07/16/23 10/01/24 release 24 hr montelukast 10 mg tablet 10 mg PO .QHS 07/16/23 10/01/24 pioglitazone 30 mg tablet 30 mg PO DAILY 07/16/23 10/01/24 tamsulosin 0.4 mg capsule 0.4 mg PO DAILY 07/16/23 10/01/24 aspirin 81 mg capsule 81 mg PO DAILY 03/12/24 10/01/24 insulin glargine-yfgn 100 unit/mL 40 unit subcut .QHS 03/12/24 10/01/24 (3 mL) subcutaneous pen (Semglee (insulin glargine-yfgn) Pen) evolocumab 140 mg/mL subcutaneous 140 mg subcut Q14D 05/09/24 10/01/24 pen injector (Bravo Edmonds) rosuvastatin 40 mg tablet 40 mg PO .QHS 05/09/24 10/01/24 isosorbide mononitrate 30 mg 30 mg PO .q am 10/01/24 10/01/24 tablet,extended release 24 hr relugolix 120 mg tablet (Orgovyx) 120 mg PO Q24H 10/01/24 10/01/24 Previous Rx's ?Medication ?Instructions ?Recorded apixaban 5 mg tablet (Eliquis) 5 mg PO BID 30 days #72 tabs 05/11/24 carvedilol 6.25 mg tablet 6.25 mg PO BID 30 days #60 tabs 05/11/24 cefdinir 300 mg capsule 600 mg (2 x 300 mg) PO DAILY 10 10/03/24 days #20 caps magnesium oxide 400 mg (241.3 mg 400 mg PO BID #60 tabs 10/03/24 magnesium) tablet pantoprazole 40 mg tablet,delayed 40 mg PO DAILY #30 tabs 10/03/24 release (Protonix) nitroglycerin 0.4 mg sublingual 0.4 mg sublingual Q5M PRN chest 05/12/25 tablet pain #30 tabs Allergies Allergy/AdvReac Type Severity Reaction Status Date / Time Penicillins Allergy Severe Rash Verified 09/30/24 22:33 Opioid HPI Opioid Management Most Recent Opioid Data: Last Pain Scale 0 10/03/24, 12:16 Last Pain Intensity 4 10/01/24, 10:58 Last ORT Total Score 0 10/01/24, 01:00 Last ORT Risk Category Low Risk 10/01/24, 01:00 Review of Systems ROS Narrative A ten point review of systems is negative except as noted above. [facility] Medical History (Updated 05/12/25 @ 09:20 by Darrion Prado MD) Essential hypertension ?I10 - Essential (primary) hypertension (ICD-10) History of pulmonary embolism ?Z86.711 - Personal history of pulmonary embolism (ICD-10) Elevated troponin ?R79.89 - Other specified abnormal findings of blood chemistry (ICD-10) CAD (coronary artery disease) ?I25.10 - Atherosclerotic heart disease of yocha dehe coronary artery without angina pectoris (ICD-10) Abdominal pain ?R10.9 - Unspecified abdominal pain (ICD-10) Fever ?R50.9 - Fever, unspecified (ICD-10) History of non-ST elevation myocardial infarction (NSTEMI) ?I25.2 - Old myocardial infarction (ICD-10) Multi-infarct dementia ?F01.50 - Vascular dementia, unspecified severity, without behavioral disturbance, psychotic disturbance, mood disturbance, and anxiety (ICD-10) Cerebrovascular disease ?I67.9 - Cerebrovascular disease, unspecified (ICD-10) Type 2 diabetes mellitus with hyperglycemia ?E11.65 - Type 2 diabetes mellitus with hyperglycemia (ICD-10) Implantable loop recorder present ?Z95.818 - Presence of other cardiac implants and grafts (ICD-10) Sleep apnea treated with continuous positive airway pressure (CPAP) ?G47.30 - Sleep apnea, unspecified (ICD-10) TIA (transient ischemic attack) ?G45.9 - Transient cerebral ischemic attack, unspecified (ICD-10) High cholesterol ?E78.00 - Pure hypercholesterolemia, unspecified (ICD-10) Hypertension ?I10 - Essential (primary) hypertension (ICD-10) Prostate CA ?C61 - Malignant neoplasm of prostate (ICD-10) Surgical History History of shoulder surgery ?Z98.890 - Other specified postprocedural states (ICD-10) H/O left knee surgery ?Z98.890 - Other specified postprocedural states (ICD-10) History of back surgery ?Z98.890 - Other specified postprocedural states (ICD-10) Family History Mother Family history of diabetes mellitus Family history of myocardial infarction Sister Family history of hypertension Social History (Updated 10/01/24 @ 01:20 by Mallika Chacon) Within the past year, how often did you have a drink containing alcohol: never Score interpretation: A score less than 4 is consistent with normal alcohol consumption. Smoking status: Former smoker Non-prescribed substance use: denies use Previous occupational history: retired Highest level of school completed/degree received: high school graduate Are you now , , , , never or living with a partner: In a typical week, how many times do you talk on the telephone with family, friends, or neighbors: 3 or more times per week How often do you get together with friends or relatives: 3 or more times per week How often do you attend restorationist or taoism services: never Little interest or pleasure in doing things: not at all Feeling down, depressed, or hopeless: not at all Feel stressed/tense/nervous/anxious/difficulty sleeping: not at all Do you think of yourself as: straight/heterosexual Gender Identity: male Exam Narrative Exam Narrative: Nurses note and vital signs reviewed and patient is not hypoxic. General: The patient appears well and in no apparent distress. Patient is resting comfortably on cart. Skin: Warm, dry, no pallor noted. There is no rash noted. Head: Normocephalic, atraumatic Eye: Normal conjunctiva, no drainage Ears, Nose, Mouth, and Throat: oral mucosa is moist. Nares patent. Cardiovascular: Regular Rate and Rhythm; no crepitus bruise rash or palpable tenderness on his chest wall Respiratory: Patient is in no distress, no accessory muscle use, lungs are clear to auscultation, no wheezing, rales or rhonchi Back: non-tender GI: Soft and nontender Musculoskeletal: The patient has no evidence of calf tenderness, no pitting edema, symmetrical pulses noted bilaterally Neurological: A&O, normal speech Psychiatric: Cooperative Constitutional Vital Signs, click to edit/add: Last Vital Signs Temp 98.6 F 05/12/25 07:10 Pulse 72 05/12/25 09:00 Resp 10 L 05/12/25 09:00 BP 143/74 H 05/12/25 09:00 Pulse Ox 96 05/12/25 09:00 O2 Del Method Room Air 05/12/25 07:10 Course Vital Signs Vital signs: Vital Signs Temperature 98.6 F 05/12/25 07:10 Pulse Rate 84 05/12/25 07:10 Respiratory Rate 16 05/12/25 07:10 Blood Pressure 163/102 H 05/12/25 07:10 Pulse Oximetry 96 05/12/25 07:10 Oxygen Delivery Method Room Air 05/12/25 07:10 Temperature 98.6 F 05/12/25 07:10 Pulse Rate 72 05/12/25 09:00 Respiratory Rate 10 L 05/12/25 09:00 Blood Pressure 143/74 H 05/12/25 09:00 Pulse Oximetry 96 05/12/25 09:00 Oxygen Delivery Method Room Air 05/12/25 07:10 Medical Decision Making MDM Narrative Medical decision making narrative: Initial troponin was 81 with a repeat of 76. A second nitroglycerin took his pain away completely. He remains asymptomatic. Case discussed with Dr. Kendall and the patient is discharged home with instructions to call his cardiology office in the morning for prompt follow-up. I have explained to the patient and his daughter that he will possibly need a follow-up stress test as an outpatient. He was given a prescription for nitroglycerin and was instructed to return to the emergency department if the nitroglycerin does not take away his pain. At this point I do not suspect myocardial infarction. Treatment diagnosis and follow-up were discussed with the patient and his daughter. Differential Diagnosis Differential Diagnosis: STEMI, NSTEMI, chest pain, angina Lab Data Lab results reviewed: Yes I reviewed the patient's lab results Labs: Lab Results 05/12/25 05/12/25 Range/Units 07:40 08:22 WBC 5.5 (4.0-11.0) 10^3/uL RBC 4.79 (4.70-6.10) 10^6/uL Hgb 13.9 L (14.0-18.0) g/dL Hct 40.5 L (42.0-54.0) % MCV 84.6 (80.0-94.0) fL MCH 29.0 (25.9-34.0) pg MCHC 34.3 (29.9-35.2) g/dL RDW 13.0 (11.0-15.0) % Plt Count 159 (150-450) 10^3/uL MPV 10.2 (9.5-13.5) fL Neut % (Auto) 47.2 (43.0-75.0) % Lymph % (Auto) 36.0 (20.5-60.0) % Geary % (Auto) 10.5 (1.7-12.0) % Eos % (Auto) 5.6 (0.9-7.0) % Baso % (Auto) 0.7 (0.2-2.0) % Neut # (Auto) 2.6 (1.4-6.5) 10^3/uL Lymph # (Auto) 2.0 (1.2-3.8) 10^3/uL Geary # (Auto) 0.6 (0.3-0.8) 10^3/uL Eos # (Auto) 0.3 (0.0-0.7) 10^3/uL Baso # (Auto) 0.0 (0.0-0.1) 10^3/uL Abs Immat Gran (auto) 0.00 (0.00-0.03) 10^3/uL Imm/Tot Granulo (auto) 0.0 (0.0-0.5) % Sodium 138 (136-145) mmol/L Potassium 3.6 (3.5-5.1) mmol/L Chloride 100 (98-107) mmol/L Carbon Dioxide 28.8 (21.0-32.0) mmol/L Anion Gap 12.8 BUN 14.0 (7.0-18.0) mg/dL Creatinine 1.00 (0.70-1.30) mg/dL Est GFR ( Amer) >60 (>=60 mL/min/1.73m^2) Est GFR (Non-Af Amer) >60 (>=60 mL/min/1.73m^2) BUN/Creatinine Ratio 14.0 Glucose 358 H (74-106) mg/dL Calcium 9.3 (8.5-10.1) mg/dL Troponin I High Sens 81.6 H* 76.9 H* (4.0-76.1) pg/mL Imaging Data Chest x-ray: My impression: No acute finding ECG Data Attestation: I personally reviewed and interpreted this ECG as follows: (EKG on my interpretation shows normal sinus rhythm with rate of 85 and no acute change) Discharge Plan Discharge Chief Complaint: Chest Pain Clinical Impression: Chest pain Patient Disposition: Home, Self-Care Time of Disposition Decision: 09:20 Condition: Good Mode of Transportation: Private Vehicle Prescriptions / Home Meds: New nitroglycerin 0.4 mg tablet, sublingual 0.4 mg sublingual Q5M PRN (Reason: chest pain) Qty: 30 0RF Rx Instructions: do not exceed 3 doses per episode No Action insulin glargine-yfgn [Semglee(insulin glarg-yfgn)Pen] 100 unit/mL (3 mL) insulin pen 40 unit SUBCUT .QHS aspirin 81 mg capsule 81 mg PO DAILY amlodipine 10 mg tablet 10 mg PO DAILY ezetimibe 10 mg tablet 10 mg PO QAM glipizide 10 mg tablet 10 mg PO BIDWM lisinopril-hydrochlorothiazide 20-12.5 mg tablet 1 tab PO BID metformin 500 mg tablet extended release 24 hr 500 mg PO BID montelukast 10 mg tablet 10 mg PO .QHS pioglitazone 30 mg tablet 30 mg PO DAILY tamsulosin 0.4 mg capsule 0.4 mg PO DAILY rosuvastatin 40 mg tablet 40 mg PO .QHS Repatha SureClick 140 mg/mL pen injector 140 mg subcut Q14D carvedilol 6.25 mg Tablet 6.25 mg PO BID 30 Days Qty: 60 0RF Eliquis 5 mg Tablet 5 mg PO BID 30 Days Qty: 72 0RF Rx Instructions: Please take 10mg PO BID x 6 days, then 5mg PO BID isosorbide mononitrate 30 mg tablet extended release 24 hr 30 mg PO .q am Orgovyx 120 mg tablet 120 mg PO Q24H magnesium oxide 400 mg (241.3 mg magnesium) Tablet 400 mg PO BID Qty: 60 11RF cefdinir 300 mg capsule 600 mg PO DAILY 10 Days Qty: 20 0RF pantoprazole [Protonix] 40 mg tablet,delayed release (DR/EC) 40 mg PO DAILY Qty: 30 11RF Print Language: Ukrainian Instructions: Chest Pain (ED) Additional Instructions: Return to emergency department if 3 nitroglycerin do not take away your pain. Call the sign hanger supervisor office in the morning to arrange prompt follow-up. Referrals: Codie Garrett MD [Physician, Cardiology] - As soon as possible Adilson Luu MD [Primary Care Provider, Family Practice] - 1 week
--- OUTSIDE RECORDS SUMMARY | 2025-05-12 07:17 | XMS_ITS | CCD ---
Author Organization [facility] Care Team Providers Care Animal Treatment Investigator Name Role Phone Adilson Salazar Primary Care Provider [phone] OSCAR HARP Admitting Unavailable KABOUR, AMEER Consulting Unavailable OMER ZAMBRANO Attending Unavailable ADILSON SALAZAR Primary Care Unavailabl JAMILA Bliss Consulting Unavailable ADILSON SALAZAR Primary Care Physician MD Adilson Salazar Primary Care Provider MD Milvia Palomo Attending Provider MD Adilsno Salazar Primary Care Provider MD Milvia Palomo [...] ., DR ACEVEDO Consulting Unavailable LUE, MILVIA Powers Admitting Unavailable LUE, MILVIA Powers Attending Unavailable NADERER, DR ADILSON Johnson Primary Care Unavailable LUMILVIA Rhaman Consulting Unavailable NADERER, DR ADILSON Johnson Primary [...] Adilson COTTO Primary Care Provider Adilson Salazar MD Primary Care Provider Adilson Salazar MD Unavailable Adilson Salazar Primary Care Unavailable Sonya, Norleena R Admitting Unavailable Sonya, Norleena R Attending Unavailable Lue, Milvia M Referring Unavailable NADERER, ADILSON Attending Unavailable NADERER, ADILSON Attending Unavailable NADERER, ADILSON Attending Unavailable NADERER, ADILSON Attending Unavailable NADERER, ADILSON Attending Unavailable NADERER, ADILSON Attending Unavailable LINDA, PHYLLIS Attending Unavailable LINDA, PHYLLIS Attending Unavailable ALGHOTHANI, KELSEY Attending Unavailable MOUKARBELSAMREEN Attending Unavailable ALGHOTHANI, KELSEY Attending Unavailable HADZIAHMETOVIC, SILVANO Attending Unavaila ble Allergies Allergy Classification Reported Allergen(s) Allergy Type Date of Onset Reaction(s) Facility (16 sources) Labetalol; 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: [labetalol] Drug Allergy 0 Unknown (origin) (qualifier value) [facility] (14 sources) Penicillin; 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: [penicillin] Drug Allergy 7 Unknown [facility] (20 sources) Penicillins; 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: [Penicillins] Allergy to substance 4 Rash [facility] (1 source) Labetalol Drug Allergy [facility] (1 source) Labetalol Drug Allergy 1 [facility] Medications Current Medications Medication Drug Class(es) Dates Sig (Normalized) Sig (Original) acetaminophen 500 mg oral tablet (20 sources) take 2 tablets by mouth every [...] oral tablet (20 sources) Dihydropyridine Calcium Channel David Start: 04-30-2024 take 1 tablet by mouth once daily amLODIPine (Norvasc) 10 MG tablet Indications: Essential hypertension, benign Take 1 tablet by mouth once daily 30 tablet 04/30/2024 Active Start: 08-12-2020 take 1 tablet by marianne th once daily amLODIPine 10 mg Tab 10 mg = 1 tab(s), Oral, Daily, High blood pressure Start Date: 08/12/20 Status: Ordered apixaban 5 mg oral tablet (17 sources) Factor Xa Inhibitor Start: 05-12-2024 take [...] suppository 10 mg Blood Glucose Monitoring Suppl (OneTouch Verio Flex System) w/Device kit (20 sources) Start: 10-26-2023 Blood Glucose Monitoring Suppl (OneTouch Verio Flex System) w/Device kit Indications: Type 2 diabetes mellitus with hyperglycemia, with long-term current use of insulin ([facility]) USE TO CHECK GLUCOSE THREE TIMES DAILY (IN THE MORNING, IN THE EVENING, AND BEFORE BEDTIME) 1 kit 10/26/2023 Active Start: 10-26-2023 Blood Glucose Monitoring Suppl (OneTouch Verio Flex System) w/Device kit Indications: Type 2 diabetes mellitus with hyperglycemia, with long-term current use of insulin ([facility]/HCC) USE TO CHECK GLUCOSE THREE TIMES DAILY (IN THE MORNING, IN THE EVENING, AND BEFORE BEDTIME) 1 kit 10/26/2023 Active Blood Glucose Monitoring Suppl kit (2 sources) Start: 09-26-2023 Blood Glucose Monitoring Suppl kit Indications: Type 2 diabetes mellitus with hyperglycemia, with long-term current use of insulin (CMS/HCC) 1 each in the morning and 1 each in the evening and 1 each before bedtime. 1 kit 0 09/26/2023 Active 120 actuat budesonide 0.18 mg/actuat dry powder inhaler (20 sources) Corticosteroid Start: 04-09-2025 take 1 puff(s) by mouth in the morning budesonide (Pulmicort Flexhaler) 180 MCG/ACT inhaler Indications: Mild persistent asthma without complication (HCC) Inhale 1 puff in the morning and 1 puff before bedtime. Rinse mouth with water after use to reduce aftertaste and incidence of candidiasis. Do not swallow. 1 each 3 04/09/2025 Active Start: 04-09-2025 take 1 puff(s) by [facility] in the morning budesonide (Pulmicort Flexhaler) 180 MCG/ACT inhaler Indications: Mild persistent asthma without complication (HCC) Inhale 1 puff in the morning and 1 puff before bedtime. Rinse mouth with water after use to reduce aftertaste and incidence of candidiasis. Do not swallow. 1 each 3 04/09/2025 Active Start: 06-11-2022 take 0.5 mg by inhal ation twice daily as needed for wheezing budesonide 0.5 mg/2 mL Inh Susp 0.5 mg = 2 mL, NEB, BID, PRN Shortness of breath or wheezing, Refills(s) 0 Start Date: 06/11/22 Status: Ordered End: 04-09-2025 take 0.25 mg by mouth in the morning budesonide (Pulmicort) 0.25 MG/2ML nebulizer solution Take 0.25 mg by nebulization in the morning. Rinse mouth with water after use to reduce aftertaste and incidence of candidiasis. Do not swallow.. 04/09/2025 Discontinued 24 hr buPROPion hydrochloride 150 mg extended release oral tablet (1 source) Aminoketone take 1 tablet by mouth once daily in the morning buPROPion (WELLBUTRIN XL) 150 MG extended release tablet Take 150 mg by mouth every morning 0 Active calcium carbonate 600 mg / cholecalciferol 0.01 mg oral tablet (20 sources) Vitamin D Start: take 1 tablet by mouth in the morning Calcium + Vitamin D3 600-10 MG-MCG tablet Take 1 tablet by mouth in the morning. 09/20/2023 Active calcium polycarbophil 625 mg oral tablet (10 sources) Start: take 2 tablets by mouth once daily FiberCon 625 mg Tab 1,250 mg = 2 tab(s), Oral, Daily, Refills(s) 0, Constipation Start Date: 06/11/22 Status: Ordered carvedilol 6.25 mg oral tablet (17 sources) alpha-Adrenergic David, beta-Adrenergic David Start: take 1 tablet by mouth in the morning carvedilol (Coreg) 6.25 MG tablet Take 6.25 mg by mouth in the morning and 6.25 mg before bedtime. 05/12/2024 Active cholecalciferol 0.05 mg oral tablet (20 sources) Vitamin D Start: take 50 ug by mouth once daily [...] 06/09/2019 Active furosemide 40 mg oral tablet (20 sources) Loop Diuretic Start: 05-02-2024 End: 04-09-2025 take 1 tablet by mouth once daily furosemide (Lasix) 40 MG tablet Indications: Heart failure with improved ejection fraction (HFimpEF) ([facility]) Take 1 tablet (40 mg) by mouth Daily 30 tablet 3 05/02/2024 04/09/2025 Discontinued glipiZIDE 10 mg oral tablet (20 sources) Sulfonylurea Start: 12-28-2024 take 1 tablet by mouth twice daily glipiZIDE (Glucotrol) 10 MG tablet Indications: Type 2 diabetes mellitus with hyperglycemia, unspecified whether retirement insulin use ([facility]) Take 1 tablet by mouth twice daily 180 tablet 12/28/2024 Active Start: 09-25-2024 take 1 tablet by marianne th twice daily glipiZIDE (Glucotrol) 10 MG tablet Indications: Type 2 diabetes mellitus with hyperglycemia, unspecified whether terminal gauger insulin use ([facility]) Take 1 tablet by mouth twice daily 180 tablet 09/25/2024 Active Start: 06-21-2024 take 1 tablet by marianne th twice daily glipiZIDE (Glucotrol) 10 MG tablet Indications: Type 2 diabetes mellitus with hyperglycemia, unspecified whether retirement insulin use ([facility]) Take 1 tablet by [...] ml insulin glargine 100 unt/ml pen injector (7 sources) Insulin Analog Start: 02-12-2025 insulin glargi ne (Lantus SoloStar) 100 UNIT/ML pen Indications: Type 2 diabetes mellitus with hyperglycemia, with long-term current use of insulin (HCC) Inject 40 Units under the skin at bedtime 3 mL 5 02/12/2025 Active Start: 09-29-2023 insulin glargi ne (Lantus SoloStar) [...] mononitrate 30 mg extended release oral tablet (13 sources) Nitrate Vasodilator take 1 tablet by [...] 0 Active levoFLOXacin 750 mg oral tablet (4 sources) Quinolone Antimicrobial Start: End: take 1 tablet by mouth once daily levoFLOXacin (Levaquin) 750 MG tablet Indications: Acute non-recurrent pansinusitis Take 1 tablet (750 mg) by mouth Daily for 7 days 7 tablet 01/16/2025 01/23/2025 Active Start: 05-12-2024 End: 05-18-2024 take 1 tablet by mouth once daily levoFLOXacin (Levaquin) 750 MG tablet Take 750 mg by mouth Daily 05/12/2024 05/18/2024 Active magnesium hydroxide 80 mg/ml oral suspension (1 source) Start: 06-06-2019 magnesium hydr oxide (MILK OF MAGNESIA) 400 MG/5ML suspension 30 mL magnesium oxide 400 mg oral tablet (10 sources) Start: 10-03-2024 take 1 tablet by mouth in the morning magnesium oxide (Mag-Ox) 400 mg tablet Take 400 mg by mouth in the morning and 400 mg before bedtime. 10/03/2024 Active melatonin 1 mg oral tablet (1 source) Start: 06-06-2019 melatonin tabl et 3 mg 24 hr metFORMIN hydrochloride 500 mg extended release oral tablet (20 sources) Biguanide Start: 10-08-2024 take 1 tablet by mouth twice daily metFORMIN XR (Glucophage-XR) 500 MG 24 hr tablet Indications: Type 2 diabetes mellitus with hyperglycemia, with long-term current use of insulin (HCC) Take 1 tablet by mouth twice daily [...] mg tablet Active 32 MG PO Daily 5 June 25, 2021 11:00pm start 06/27/21 am 24 hr mirabegron 50 mg extended release oral tablet (12 sources) beta3-Adrenergic Agonist Start: 04-21-2022 take 1 tablet by mouth once daily Myrbetriq 50 mg oral tablet, extended release 50 mg = 1 tab(s), Oral, Daily, # 30 tab(s), Refills(s) 6, Pharmacy: [id number], 183, cm, 04/21/22 11:40:00 [...] pantoprazole 40 mg delayed release oral tablet (10 sources) Proton Pump Inhibitor Start: 10-03-2024 take [...] 40 mg by mouth daily 0 Active predniSONE 50 mg oral tablet (2 sources) Start: 01-16-2025 End: 01-22-2025 take 1 tablet by mouth once daily predniSONE (Deltasone) 50 MG tablet Indications: Acute non-recurrent pansinusitis Take 1 tablet (50 mg) by mouth Daily for 6 days 6 tablet 01/16/2025 01/22/2025 Active relugolix (Orgovyx) 120 MG tablet (20 sources) take 1 tablet by mouth once daily relugolix (Orgovyx) 120 MG tablet Take by mouth Daily. Active take 1 tablet by mouth once jay y relugolix (Orgovyx) 120 MG tablet Take by mouth Daily. 0 Active rosuvastatin calcium 40 mg oral tablet (20 sources) HMG-CoA Reductase Inhibitor Start: 08-17-2023 take 1 tablet by mouth in the morning rosuvastatin (Crestor) 40 MG tablet Take 40 mg by mouth in the morning. 08/17/2023 Active 0.25 mg, 0.5 mg dose 1.5 ml semaglutide 1.34 mg/ml pen injector (20 sources) Start: 05-02-2024 End: 01-16-2025 semaglutide (Ozempic, 0.25 or 0.5 MG/DOSE,) 2 MG/1.5ML solution pen-injector Indications: Type 2 diabetes mellitus with hyperglycemia, with long-term current use of insulin ([facility]) 0.25 mg SC weekly x 4 weeks, then 0.5 mg weekly 1 each 5 01/16/2025 Active Semglee, yfgn, 100 UNIT/ML pen (18 sources) Start: 01-15-2025 inject 40 [IU] by subcutaneous injection at bedtime Semglee, yfgn, 100 UNIT/ML pen Indications: Type 2 diabetes mellitus with hyperglycemia, with long-term current use of insulin (CMS/HCC) INJECT 40 UNITS SUBCUTANEOUSLY AT BEDTIME 15 mL 01/15/2025 Active Start: 08-06-2024 inject 40 [IU] by mcbride bcutaneous injection [...] 0.4 mg oral capsule (20 sources) alpha-Adrenergic David Start: 12-28-2024 take 1 capsule by mouth once daily tamsulosin (Flomax) 0.4 MG 24 hr capsule Indications: BPH associated with nocturia Take 1 capsule by mouth once daily 90 capsule 12/28/2024 Active Start: 09-25-2024 take 1 capsule by mo uth once [...] Active Start: 06-11-2022 take 1 capsule by [facility] once daily tamsulosin 0.4 mg Cap 0.4 mg = 1 cap(s), Oral, Daily, Refills(s) 0, Bladder problems Start Date: 06/11/22 Status: Ordered Start: 06-09-2019 take 1 capsule by [facility] once daily tamsulosin (FLOMAX) 0.4 MG [...] extended release oral tablet (10 sources) beta-Adrenergic David Start: 06-14-2024 End: 07-02-2024 take 1 tablet by mouth once daily metoprolol succinate XL (Toprol-XL) 50 MG 24 hr tablet Take 50 mg by mouth Daily 06/14/2024 07/02/2024 Discontinued Start: 09-10-2023 take 1 tablet by marianne every twenty-four hours in the morning metoprolol [...] [facility]) Take 1 tablet by mouth once daily [...] pain] Onset: 06-25-2022 Episodic Acute cerebrovascular disease (14 sources) Cerebrovascular accident; 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: [Cerebrovascular accident (CVA)] Onset: 06-05-2019 06-06-2019 Chronic Asthma (16 sources) Asthma; 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: [Unspecified asthma, uncomplicated] Onset: [...] Translations: [Chronic kidney disease, stage 3a] Onset: 03-04-2025 Chronic obstructive pulmonary disease and bronchiectasis (2 sources) Acute exacerbation of chronic obstructive airways disease; Translations: [Chronic obstructive pulmonary disease with (acute) exacerbation] 06-25-2021 Chronic Congestive heart failure; nonhypertensive (20 sources) Heart failure; Translations: [Chronic diastolic (congestive) heart failure] Onset: 05-02-2024 05-02-2024 Chronic Coronary atherosclerosis and other heart disease (20 sources) Coronary arteriosclerosis; Translations: [Atherosclerotic heart disease of [place] coronary artery without angina pectoris] Onset: 03-28-2024 03-28-2024 Chronic Delirium, dementia, and amnestic and other cognitive disorders (20 sources) Vascular dementia without behavioral disturbance; Translations: [Multi-infarct dementia, uncomplicated] Onset: 11-18-2022 08-05-2023 Chronic Diabetes mellitus with complications (20 sources) Type 2 diabetes mellitus with diabetic chronic kidney disease; Translations: [Type 2 diabetes mellitus with hyperglycemia] Onset: 06-09-2022 08-05-2023 Chronic Diabetes mellitus without complication (13 sources) Diabetes mellitus; Translations: [Type 2 diabetes mellitus without complications] Onset: 11-18-2022 06-25-2021 Chronic Diseases of white blood cells (10 sources) Eosinophil count raised 06-11-2022 Chronic Disorders of lipid metabolism (17 sources) Hyperlipidemia; Translations: [Hyperlipidemia, unspecified] Onset: 07-29-2022 08-12-2020 Chronic Diverticulosis and diverticulitis (11 sources) Diverticulitis; Translations: [Diverticulitis of intestine, part unspecified, without perforation or abscess without bleeding] Onset: 10-16-2024 10-16-2024 Chronic Esophageal disorders (20 sources) Gastroesophageal reflux disease; Translations: [Gastro-esophageal reflux disease without esophagitis] Onset: 07-29-2022 06-11-2022 Chronic Essential hypertension (20 sources) Hypertensive disorder; Translations: [Malignant hypertension] Onset: 01-26-2022 08-12-2020 Chronic Genitourinary symptoms and ill-defined conditions (12 sources) Urinary incontinence 08-12-2020 Chronic Hyperplasia of prostate (20 sources) Benign prostatic [...] 06-11-2022 Chronic Other aftercare (1 source) Other terminal gauger (current) drug therapy; Translations: [OTH RESIDENTIAL CURRENT DRUG THERAPY] Onset: 11-18-2022 Episodic Other aftercare (1 source) intermediate (current) use of insulin; Translations: [RESIDENTIAL CURRENT USE OF INSULIN] Onset: 11-18-2022 Episodic Other aftercare (1 source) 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; Translations: [RESIDENTIAL USE ORAL HYPOGLYCEMIC DX] Onset: 11-18-2022 Episodic Other aftercare (1 source) intermediate (current) use of aspirin; Translations: [WORK ORDER CLERK CURRENT USE OF ASPIRIN] Onset: 11-18-2022 Episodic Other and ill-defined cerebrovascular disease (1 source) Cerebrovascular disease, unspecified; Translations: [CEREBROVASCULAR DISEASE UNSPECIFIED] Onset: 11-18-2022 Chronic Other and ill-defined cerebrovascular disease (20 sources) Cerebrovascular disease; Translations: [Cerebrovascular disease, unspecified] [...] Translations: [History of diabetes mellitus] 06-06-2019 Episodic Other upper respiratory infections (7 sources) Acute pansinusitis; Translations: [Acute pansinusitis, unspecified] Onset: 01-16-2025 Resolved: 04-09-2025 01-16-2025 Episodic Paralysis (2 sources) Left hemiparesis; Translations: [Acute left hemiparesis] 06-06-2019 Chronic Residual codes; unclassified (20 sources) Obstructive sleep apnea syndrome; Translations: [Obstructive sleep apnea (adult) (pediatric)] Onset: 08-05-2023 06-11-2022 Chronic Residual codes; unclassified (1 source) Obstructive sleep apnea (adult) (pediatric); Translations: [OBSTRUCTIVE SLEEP APNEA] Onset: 11-18-2022 Chronic Residual codes; unclassified (1 source) Sleep apnea, unspecified; Translations: [SLEEP APNEA UNSPECIFIED] Onset: 07-29-2022 Chronic Residual codes; unclassified (2 sources) Personal history of irradiation; Translations: [Personal history of irradiation] Onset: 04-08-2025 Episodic Unclassified (1 source) CHRN KIDNEY DISEASE STG [...] [ACUTE KIDNEY FAILURE UNSPECIFIED] Onset: 06-09-2022 Episodic Acute myocardial infarction (18 sources) Myocardial infarction; Translations: [Non-ST elevation (NSTEMI) myocardial infarction] Onset: 05-18-2024 Resolved: 07-02-2024 07-02-2024 Chronic Allergic reactions (20 sources) Vesicular eczema; Translations: [Dyshidrosis [pompholyx]] Onset: 08-05-2023 06-11-2022 Episodic Anal and rectal conditions (1 source) Rectal polyp; Translations: [RECTAL POLYP] Onset: 07-29-2022 Episodic Fluid and electrolyte disorders (1 source) Dehydration; Translations: [DEHYDRATION] Onset: 06-09-2022 Episodic Genitourinary symptoms and ill-defined conditions (20 sources) Nocturia; Translations: [Urgent desire to urinate] Onset: 10-06-2022 08-12-2020 Episodic Mood disorders (20 sources) Depressive disorder; Translations: [Recurrent major depressive episodes, moderate ] Onset: 08-05-2023 Resolved: 03-28-2024 08-12-2020 Chronic Other circulatory disease (1 source) Personal history of transient ischemic attack (TIA), and cerebral infarction without residual deficits; Translations: [PERS HX TIA AND CI NO RESID DEFICIT] Onset: 07-29-2022 Episodic Other ear and sense organ disorders (20 sources) Impacted cerumen of bilateral ears; Translations: [...] caused by tuberculosis or sexually transmitted disease) (18 sources) Right lower zone pneumonia; Translations: [Pneumonia, unspecified organism] Onset: 05-18-2024 Resolved: 07-02-2024 07-02-2024 Episodic Pulmonary heart disease (18 sources) Pulmonary embolism; Translations: [Single subsegmental pulmonary [...] Name Value Interpretation Reference Range Facility Follow-Upon 04-08-2025 Follow-Up [id number] Eunice Marte 1955 Provider Department Center 04/08/2025 PHYLLIS DANGELO [facility] ONC DCC Family History Problem Relation Age of Onset Heart disease Mother 58 Heart disease Maternal Grandmother Comments: heart trouble Heart disease Maternal Grandfather Comments: heart trouble Family Status - Relation Status Age at Mother Father Mother's Sister Mother's Brother Father's Sister Father's Brother Maternal Grandmother Maternal Grandfather Paternal Grandmother Paternal Grandfather Other Level of Service:98926 [place] OFFICE/OUTPATIENT ESTABLISHED SF MDM 10 MIN Reason for Visit and Comments: Follow-up [880759] - psa and testosterone prior Normal [facility] Orders Onlyon 04-08-2025 Orders Only [id number] Eunice Marte 1955 Provider Department Center 04/08/2025 DANIKA PEARL [facility] ONC DCC Family History Problem Relation Age of Onset Heart disease Mother 58 Heart disease Maternal Grandmother Comments: heart trouble Heart disease Maternal Grandfather Comments: heart trouble Family Status - Relation Status Age at Mother Father Mother's Sister Mother's Brother Father's Sister Father's Brother Maternal Grandmother Maternal Grandfather Paternal Grandmother Paternal Grandfather Other Normal [facility] Office Visiton 03-25-2025 Follow-up visit [id number] Eunice Marte 1955 M Date Provider Department Center 03/25/2025 Randolph-NANDASAMREEN SHANON [facility] Family History Problem Relation Age of Onset Heart disease Mother 58 Heart disease Maternal Grandmother Comments: heart trouble Heart disease Maternal Grandfather Comments: heart trouble Family Status - Relation Status Age at Mother Father Mother's Sister Mother's Brother Father's Sister Father's Brother Maternal Grandmother Maternal Grandfather Paternal Grandmother Paternal Grandfather Other Level of Service:72367 [place] OFFICE/OUTPATIENT ESTABLISHED MOD MDM [address] [facility] Labon 03-04-2025 Lab [id number] Eunice Marte 1955 M Date Provider Department Center 03/04/2025 [id number]OURCE DCC DRAW [facility] Family History Problem Relation Age of Onset Heart disease Mother 58 Heart disease Maternal Grandmother Comments: heart trouble Heart disease Maternal Grandfather Comments: heart trouble Family Status - Relation Status Age at Mother Father Mother's Sister Mother's Brother Father's Sister Father's Brother Maternal Grandmother Maternal Grandfather Paternal Grandmother Paternal Grandfather Other Normal [facility] PSA, DIAGNOSTICon 03-04-2025 PROSTATE SPECIFIC AG (NG/ML) IN SER/PLAS <0.1 Low 0.4-4 [facility] Comment on above: Order Comment: Demetrio garcia in 01/2025 The method used for this test is Austin Siteminis DxI chemiluminescent immunoassay. Values obtained by different manufacturers or assay methods should not be compared. Performed By: #### L [id number] #### [facility] ([place]) [address] [place] [address] TESTOSTERONEon 03-04-2025 TESTOSTERONE (NG/DL) IN SER/PLAS 31 ng/dL Low [id number] [facility] Comment on above: Order Comment: Pleas e collect in 01/2025 Result Comment: Test Performed by [employer] [address] [place] [address] [id number] - Released 03/05/2025 00:37 Performed By: #### L [id number] ####[facility] [id number] [place] [address] [facility] MICROALB CREAT RATIO RAN DOMon 11-12-2024 CREATININE URINE RANDOM 78.82 mg/dL 20.00 - 300.00 mg/dL [facility] Interpretation and review of laboratory results Abnormal [facility] MICROALBUM CREATININE RATIO UR 41.8 mg/g High 0.0 - 29.9 mg/g [facility] Comment on above: NO MICROALBUMINURIA 0-29 MG/G CLINICAL MICROALBUMINURIA 30-300 MG/G MACROALBUMINURIA >300 MG/G MICROALBUMIN URINE RANDOM 3.3 mg/dL NINF - 30.0 mg/dL [facility] Healthcare Office Visiton 10-15-2024 Follow-up visit [id number] Eunice Marte 1955 [facility] Provider Department Center 10/15/2024 KELSEY COON SHANON [facility] Family History Problem Relation Age of Onset Heart disease Mother 58 Heart disease Maternal Grandmother Comments: heart trouble Heart disease Maternal Grandfather Comments: heart trouble Family Status - Relation Status Age at Mother Father Mother's Sister Mother's Brother Father's Sister Father's Brother Maternal Grandmother Maternal Grandfather Paternal Grandmother Paternal Grandfather Other Level of Service:06395 [place] OFFICE/OUTPATIENT ESTABLISHED LOW MDM [address] [facility] Orders Onlyon 10-15-2024 Orders Only [id number] Eunice Marte 1955 [facility] Provider Department Center 10/15/2024 BRADY BORGES SHANON [place] Family History Problem Relation Age of Onset Heart disease Mother 58 Heart disease Maternal Grandmother Comments: heart trouble Heart disease Maternal Grandfather Comments: heart trouble Family Status - Relation Status Age at Mother Father Mother's Sister Mother's Brother Father's Sister Father's Brother Maternal Grandmother Maternal Grandfather Paternal Grandmother Paternal Grandfather Other Normal [facility] Follow-Upon 08-07-2024 Follow-Up [id number] Eunice Marte 1955 M Date Provider Department [...] Paternal Grandmother Paternal Grandfather Other Level of Service:68215 [place] OFFICE/OUTPATIENT ESTABLISHED LOW MDM 20 MIN Reason for Visit and Comments: Follow-up [370844] - Here for F/U of his prostate CA and to review PSA & Testosterone results. Normal [facility] LIPID PANELon 07-24-2024 CHOL/HDL 3.8 mg/dL Normal [facility] Comment on above: Performed By: #### L AB18 ####[facility] (BEN4MD)[address] [place] [address] Cholesterol [Mass/Vol] 150 mg/dL Normal 120-200 [facility] Comment on above: Performed By: #### L AB18 ####[facility] (BEN4MD)[address] [address] Magnesium [Mass/Vol] 111 mg/dL Normal 40-149 [facility] Comment on above: Result Comment: TRIG LYCERIDE REFERENCE RANGE: 20 YEARS AND OLDER CARDIOVASCULAR RISK LESS THAN 150 mg/dL LOW RISK 150 TO 199 mg/dL BORDERLINE RISK 200 mg/dL AND GREATER HIGH RISK Performed By: #### L AB18 ####[facility] (BEN4MD)[address] [place] [address] Magnesium [Mass/Vol] 88 mg/dL Normal 0-160 [facility] Comment on above: Performed By: #### L AB18 ####[facility] (BEAKER)[address] [place] [address] Magnesium [Mass/Vol] 40 mg/dL Normal 23-92 [facility] Comment on above: Performed By: #### L AB18 ####[facility] (BEAKER)[address] [place] [address] NON HDL CHOL. (LDL+VLDL) [address] [facility] Comment on above: Performed By: #### L AB18 ####[facility] ([facility] [place] [address] TOTAL VLDL-C 22 mg/dL Normal 0-40 [facility] Comment on above: Performed By: #### L AB18 ####[facility] ([facility])[address] [place] [address] Labon 07-24-[id number] [place], [place] [address]Eunice 1955 M Date Provider Department Center 07/24/2024 2243-[facility] RESOURCE DCC DRAW DCC Family History Problem Relation Age of Onset Heart disease Mother 58 Heart disease Maternal Grandmother Comments: heart trouble Heart disease Maternal Grandfather Comments: heart trouble Family Status - Relation Status Age at Mother Father Mother's Sister Mother's Brother Father's Sister Father's Brother Maternal Grandmother Maternal Grandfather Paternal Grandmother Paternal Grandfather Other Normal [facility] PSA, DIAGNOSTICon 07-24-2024 PROSTATE SPECIFIC AG (NG/ML) IN SER/PLAS 0.1 ng/mL Low 0.4-4 [facility] Comment on above: Order Comment: To be collected 07/2024 Performed By: #### L [id number] #### [facility] ([facility]) [address] [place] [address] TESTOSTERONEon 07-24-2024 TESTOSTERONE (NG/DL) IN SER/PLAS 52 ng/dL Low 193-740 [facility] Comment on above: Order Comment: To be collected 07/2024 Result Comment: Test Performed by [employer] [address] [place] [address] - Xvgksnbv 07/25/2024 11:50 Performed By: #### L [id number] ####[employer] [id number] [place] [address] Office Visiton 06-01-2024 Follow-up visit [id number] [place], [place] [address]Eunice 1955 M Date Provider Department Center 06/01/2024 3848-KELSEY JUDD SHANON [place] Family History Problem Relation Age of Onset Heart disease Mother 58 Heart disease Maternal Grandmother Comments: heart trouble Heart disease Maternal Grandfather Comments: heart trouble Family Status - Relation Status Age at Mother Father Mother's Sister Mother's Brother Father's Sister Father's Brother Maternal Grandmother Maternal Grandfather Paternal Grandmother Paternal Grandfather Other Level of Service:23522 [place] OFFICE/OUTPATIENT ESTABLISHED LOW MDM [address] [facility] Orders Onlyon 04-25-2024 Orders [facility] [id number] [facility] 1955 [facility] Date Provider Department Center 04/25/2024 1052-[facility] INT MED Comprehensiv Family History Problem Relation Age of Onset Heart disease Mother 58 Heart disease Maternal Grandmother Comments: heart trouble Heart disease Maternal Grandfather Comments: heart trouble Family Status - Relation Status Age at Mother Father Mother's Sister Mother's Brother Father's Sister Father's Brother Maternal Grandmother Maternal Grandfather Paternal Grandmother Paternal Grandfather Other Normal [facility] Documentationon 04-17-2024 Documentation [id number] [facility] 1955 M Date Provider Department Center 04/17/2024 Mona7-REDDY BARNARD Family [...] Comments: Specialty Phamracy Note: Repatha [Other] Normal [facility] Documentation [id number] [facility] 1955 Date Provider Department Center 04/17/2024 44626-KLTY, [facility] CARD [place] HeartVAS Family History Problem Relation Age of Onset Heart disease Mother 58 Heart disease Maternal Grandmother Comments: heart trouble Heart disease Maternal Grandfather Comments: heart trouble Family Status - Relation Status Age at Mother Father Mother's Sister Mother's Brother Father's Sister Father's Brother Maternal Grandmother Maternal Grandfather Paternal Grandmother Paternal Grandfather Other Reason for Visit and Comments: PCSK9i [Other] Normal [facility] Orders Onlyon 04-16-2024 Orders Only [id number] Eunice Marte 1955 M Date Provider Department Center 04/16/2024 Navid-VIVIAN [facility] CARD [place] HeartVAS Family History Problem Relation Age of Onset Heart disease Mother 58 Heart disease Maternal Grandmother Comments: heart trouble Heart disease Maternal Grandfather Comments: heart trouble Family Status - Relation Status Age at Mother Father Mother's Sister Mother's Brother Father's Sister Father's Brother Maternal Grandmother Maternal Grandfather Paternal Grandmother Paternal Grandfather Other Normal [facility] MLR HEMOGLOBIN A1Con 024 Glucose [Mass/Vol] 189 mg/dL [facility] HbA1c (Bld) [Mass fraction] 8.2 % High 4.5 - 6.2 % [facility] Comment on above: ADA RECOMMENDED LIMI T 4.0 - 6.0 ADA THERAPEUTIC TARGET < 7.0 ACTION SUGGESTED > 7.0 Interpretation and review of laboratory results Abnormal [facility] CLINISYNC [facility] Pathology Reporton 3 Pathology Report [id number] 7#1.00CD:127 Normal [facility] Urology Office/Clinic Noteon 02-03-2023 Urology Office/Clinic Note Chief Complaint Pt is here for 3 month f/u HPI Staff Eunice is a 67 y.o. male here for 3 month follow up. Previous DX: Prostate Cancer, BPH, Nocturia, ED. *Oxybutynin 5mg QD & Myrbetriq 50mg QD therapy. Pt referred to to [place] for Retzius sparing prostatectomy. Pt saw Dr [...] Unsure why seen by 2 Urologists at [facility], notes were reviewed Urology consult Dr. Valdemar Ramos [facility] 11/30/22. Urology oncology consult Dr. Phyllis Acosta [facility] 12/07/22 - plans for RALP pending cardiac [...] at least 10 yrs. Had implanted in [place]. Increased complications for prostatectomy/IPP infectio (more content not included)... Normal [facility] Comment on above: Result Comment: Elec [...] Contact prescribing physician if questions or concerns albuterol-ipratropiu m (DuoNeb 2.5 mg-0.5 mg/3 mL Soln-Inh) amlodipine (amLODIPine 10 mg Tab) aspirin (aspirin 81 mg Oral EC Tab) atorvastatin (atorvastatin 80 mg Tab) budesonide (budesonide 0.5 mg/2 mL Inh Susp) cholecalciferol (cholecalciferol 2000 intl units oral tablet (Vitamin D3)) glipiZIDE (glipiZIDE 10 mg Tab) hydrochlorothiazide- lisinopril (hydrochlorothiazide -lisinopril 12.5 mg-20 mg Tab) insulin lispro-insulin lispro [...] 1 Tablets By Mouth Every day Unchanged albuterol-ipratropiu m (DuoNeb 2.5 mg-0.5 mg/ 3 mL Soln-Inh) [...] prescribing physician if questions or concerns Unchanged hydrochlorothiazide- lisinopril (hydrochlorothiazide -lisinopril 12.5 mg-20 mg Tab) 1 Tablets By [...] bladder) ALLISON (more content not included)... Normal [facility] Patient Educationon 02-03-20 Patient Education Oncology [...] likelihood that the cancer will spread. ? Menlo 6 or lower: This indicates that the cancer cells look similar to normal prostate cells (well differentiated). ? Gilbert 7: This indicates that the cancer cells look somewhat similar to normal prostate cells (moderately differentiated). ? Menlo 8, 9, or 10: This indicates that [...] Like external be (more content not included)... [facility] Provider Letteron 02-02-2023 Provider Letter February 02, 2023 [facility] [address] [place] [id number] : 1955 To Whom It May Concern, Please excuse above patient from work. Date of Appointments: From: 02/02/2023 To: _ May Return to Work On:02/03/2023 Restrictions: none Comments: [facility] is with patient for all appointments, any question, please call our office Sincerely, [facility] [address], [place] [address] [facility] Screenson 02-02-2023 Screens [id number] 4#1.00CD:127 [facility] Screens [id number] 5#1.00CD:127 [facility] Consultation Noteon 02-02-20 23 Consultation Note [id number] #1.00CD:127 [facility] Consultation Noteon 12-09-19 Consultation Note [id number] #1.00CD:127 Normal [facility] Ambulatory Visit Summaryon 0 11-03-2022 Ambulatory Visit Summary EUNICE MARTE :1955 Visit Date:11/03/2022 Ambulatory Visit Instructions Your Diagnosis Prostate cancer Enlarged prostate with urinary obstruction Nocturia Erectile dysfunction Tests Performed Urnls Dip Stick Auto w/o Microscopy POC 68285 Your Care Team Attending Physician - Dewey COTTO, Milvia Lucia Primary Care Physician - ADILSON SALAZAR MD This Is Your Medications List Contact prescribing physician if questions or concerns albuterol-ipratropiu m (DuoNeb 2.5 mg-0.5 mg/3 mL Soln-Inh) amlodipine (amLODIPine 10 mg Tab) aspirin (aspirin 81 mg Oral EC Tab) atorvastatin (atorvastatin 80 mg Tab) budesonide (budesonide 0.5 mg/2 mL Inh Susp) cholecalciferol (cholecalciferol 2000 intl units oral tablet (Vitamin D3)) glipiZIDE (glipiZIDE 10 mg Tab) hydrochlorothiazide- lisinopril (hydrochlorothiazide -lisinopril 12.5 mg-20 mg Tab) insulin lispro-insulin lispro [...] Milvia Palomo MD Where: [facility] Patient Educationon 11-04-19 23 Patient Education [...] Are older than age 65. ? Are -Faroese. ? Are obese. ? Have a family [...] Follow these instructions at home: ? Take dvzg-wnk-kkkiqmi and prescription medicines only as told by [...] cancer specialis (more content not included)... [facility] Urology Office/Clinic Noteon 11-03-2022 Urology Office/Clinic [...] wks recommended if proceeding Was referred to [facility] for retzius sparing prostatectomy consult, has yet to be contacted. Pt still wants to procedure with surgical intervention over radiation. Follow up 2-3 mos or sooner if needed. Pt understands and agrees with plan. -contact [facility], will call pt with update. Pt to call our office if they do not hear from [facility] in 2-3 wks 2. Enlarged prostate with [...] at least 10 yrs. Had implanted in [place]. Increased complications for prostatectomy/IPP infection, recommend referral to tertiary center for retzius sparing prostatectomy. -diabetes control -overall health Follow-up With When Contact Information Dewey COTTO, Milvia Lucia, URL, URO (more content not included)... [facility] Comment on above: Result Comment: Elec tronically Signed By: Milvia Palomo MD\.br\Date and Time Signed: 11/03/22 08:40 EDT\.br\Electronically Co-Signed By: Gifty Mann\.br\Date and Time Co-Signed: 11/03/22 08:35 EDT Lab Reportson 10-26-2022 Lab Reports [id number] #1.00CD:127 Normal [facility] PSA, FREE AND TOTAL RATIOon 10-26-2022 % Free PSA 5.0 % Normal [facility] Comment on above: Result Comment: The [...] Performed By: #### P TT, PT #### [facility] [address] [place] [address] Dr. Marcell Luque Prostate specific Ag [Mass/Vol] 8.2 ng/mL Critically high 0.0-4.0 [facility] Comment on above: Result Comment: Anamika DENIS methodology. . According to the [place] [employer], Serum PSA should decrease and [...] Performed By: #### P TT, PT #### [facility] [address] [place] [address] Dr. Marcell Luque PSA, Free 0.41 ng/mL Normal N/A [facility] Comment on above: Result Comment: Anamika rahman ECLIA methodology. Performed By: #### P TT, PT #### [facility] [address] [place] [address] Dr. Marcell Luque Auth for Release of Medical Recordson 10-25-2022 Auth for Release of Medical Records [id number] #1.00CD:127 Normal [facility] Screenson 10-11-2022 Screens [id number] 78#1.00CD:127 Normal [facility] Screens [id number] #1.00CD:127 [facility] Ambulatory Visit Summaryon 0 10-06-2022 Ambulatory Visit Summary EUNICE MARTE :1955 Visit Date:10/06/2022 Ambulatory Visit Instructions Your Diagnosis Prostate cancer BPH with urinary obstruction Nocturia Erectile dysfunction Tests Performed Urnls Dip Stick Auto w/o Microscopy POC 86074 Your Care Team Attending Physician - Milvia Palomo MD Primary Care Physician - ADILSON SALAZAR MD This Is Your Medications List mirabegron (Myrbetriq 50 mg oral tablet, extended release) Contact prescribing physician if questions or concerns albuterol-ipratropiu m (DuoNeb 2.5 mg-0.5 mg/3 mL Soln-Inh) amlodipine (amLODIPine 10 mg Tab) aspirin (aspirin 81 mg Oral EC Tab) atorvastatin (atorvastatin 80 mg Tab) budesonide (budesonide 0.5 mg/2 mL Inh Susp) cholecalciferol (cholecalciferol 2000 intl units oral tablet (Vitamin D3)) glipiZIDE (glipiZIDE 10 mg Tab) hydrochlorothiazide- lisinopril (hydrochlorothiazide -lisinopril 12.5 mg-20 mg Tab) insulin lispro-insulin lispro [...] Milvia Palomo MD Where: [facility] Patient Educationon 10-06-19 23 Patient Education [...] 07/25/2013 Document Revised: 03/28/2019 Document Reviewed: 03/28/2019 Elsevier Patient Education ? 2020 [employer]. Oncology Brachytherapy for Prostate Cancer Brachytherapy for [...] including vitamins, herbs, eye drops, creams, and bekk-szx-jurdjym medicines. ? Any problems you or family [...] that c (more content not included)... [facility] Provider Letteron 10-06-2022 Provider Letter October 06, 2022 EUNICE MARTE [address] [place] [address] EUNICE MARTE 1955 To Whom It May Concern, Please excuse above patient from work. Date of Appointment: From: 10/06/2022 To: May Return to Work On:10/06/2022 Restrictions: Comments: Any questions, please call our office. Sincerely, [facility] [address], [place] [address] [facility] Urology Office/Clinic Noteon 10-06-2022 Urology [...] Hx IPP > 10 yrs ago in [place]. No prior abd surgeries. Hx L5 fusion, [...] understands and agrees with plan. -refer to [place] for Retzius sparing RALP given IPP -PSA level -practice Aguilagels (educational sheet provided) 2. BPH with urinary [...] at least 10 yrs. Had implanted in [place]. Increased complications for prostatectomy/IPP infection, recommend referral to tertiary center for retzius sparing prostatectomy -diabetes control -overall health Follow-up With When Contact Information Milvia Palomo MD, URL, URO Additional Instructions: f/u 1 month Patient Education Kegel Exercises Brachytherapy for Prostate Cancer Laparoscopic Prostatectomy Prostate Cancer Gifty Anthony (more content not included)... Normal [facility] Comment on above: Result Comment: Elec tronically Signed By: Milvia Palomo MD\.br\Date and Time Signed: 10/06/22 08:48 EST\.br\Electronically Co-Signed By: Gifty Mann\.br\Date and Time Co-Signed: 10/06/22 08:37 EST Lab Reportson 09-27-2022 Lab Reports [id number] #1.00CD:127 Normal [facility] Reference Lab Reporton 09-27 Reference Lab Report [id number] #1.00CD:127 Normal [facility] Consultation Noteon 09-24-19 Consultation Note [id number] #1.00CD:127 [facility] RAD - Pet Scan Reporton RAD - Pet Scan Report [id number] #1.00CD:127 [facility] Formson 09-10-2022 Forms [id number] #1.00CD:127 [facility] RAD - CT Reporton 08-20-2022 RAD - CT Report [id number] #1.00CD:127 Normal [facility] Lab Reportson 08-09-2022 Lab Reports [id number] #1.00CD:127 Normal [facility] CREATININEon 08-06-2022 Creatinine [Mass/Vol] 0.99 mg/dL Normal 0.70-1.30 [facility] Comment on above: Performed By: #### C MATI #### [facility] [address] [place] [address] Dr. Marcell Luque EGFR-AF RUSSIAN >60 Normal >=60 [facility] Comment on above: Performed By: #### C MATI #### [facility] [address] [address] [address] Marcell Luque EGFR-NON AF RUSSIAN >60 Normal >=60 [facility] Comment on above: Performed By: #### C MATI #### [facility] [address] [place] [address] ABD/PELV W CONon [...] SUELLEN MAYO Date: 2022-08-06 16:00 Normal [facility] Physician Orderon 08-05-2022 Physician Order [id number] #1.00CD:127 Normal [facility] Screenson 08-05-2022 Screens [id number] #1.00CD:127 Normal [facility] Screens [id number] #1.00CD:127 Normal [facility] Patient Educationon 08-04-20 Patient Education Oncology [...] including vitamins, herbs, eye drops, creams, and fwny-bck-hovtqyd medicines. ? Any problems you or family [...] You w (more content not included)... Normal [facility] Provider Letteron 08-04-2022 Provider Letter August 04, 2022 EUNICE MARTE [address] [facility] [place] [address] EUNICE MARTE 1955 To Whom It May Concern, Please excuse above patient from work. Date of Illness: From: 08/04/2022 To: 08/04/2022 May Return to Work On: Restrictions: _ Comments: Sincerely, [facility] [address] [address] Normal [facility] Urology Office/Clinic Noteon 08-04-2022 Urology Office/Clinic [...] cT1c prostate cancer Grade group 2 in 3/ cores, iPSA 11.09, PSAD 0.23. (2 IRF) [...] lymph node dissection. I showed him the [facility] calculator which estimate his risk of organ [...] Discussed effects of tx on ED Orders: [facility] External Ambulatory Referral Follow-up With When Contact Information Dewey COTTO, Milvia Lucia, URL, URO Within 1 month Additional Instructions: Discuss PSMA PET scan & treatment options Patient Education Brachytherapy for Prostate Cancer Good Anthony (more content not included)... [facility] Comment on above: Result Comment: Elec tronically Signed By: Milvia Palomo MD\.br\Date and Time Signed: 08/04/22 10:53 EST Reminderson 08-03-2022 Reminders - From: Lulu Peralta LPN To: N - Clinical; Sent: 08/03/2022 14:08:01 EST Show up: 06/20/2032 07:00:00 EDT Subject: colonoscopy recall Due Date/Time: 07/21/2032 07:00:00 EST Reminder/Recall Patient is due for screening colonoscopy 07/21/2032. [facility] Auth for Release of Medical Recordson 07-29-2022 Auth for Release of Medical Records [id number] #1.00CD:127 [facility] Pathology Noteon 07-26-2022 Pathology Note [id number] #1.00CD:127 [facility] Outside Colonoscopyon 2021 Outside Colonoscopy [id number] #1.00CD:127 [facility] Lab Reportson 07-19-2022 Lab Reports [id number] #1.00CD:127 [facility] Covid-19 PCR ([facility])on 06-23 SARS-CoV-2 (COVID-19) RNA NISHANT+probe Ql (Unsp spec) Not detected Normal NOT DETECTED [facility] Comment on above: Result Comment: When [...] for this test is supported by the [place] of Health and Human Service's declaration that [...] Performed By: #### P TT, PT #### [facility] [address] [place] [address] Dr. Marcell Luque IntraOperative Documentson 1 09-11-2021 IntraOperative Documents [id number] 0#1.00CD:127 [facility] Coding Summary.on 07-09-2022 Coding Summary. CD:[id number] Gh0bWw+PGhlYWQ+PE1FV IWrB42jdIYjkI8TX1wHW M6ASSRVAEVSBL2GQI0an XJ7AQgcQ7CyzxBy WrkbiVKdJD43DBd2LBM4 vOzjFGjclN9dtZUrU2b3 IxWrDB68kU35CSycTUAk UsV5RrKpnlfnrOEe B8ufHhVpkUXiZpk+PHRh YmxlIHdpZHRoPScxMDAl WvAirJdvPC8wVg7hXQMs LWNvbGxhcHNlOiBj h5maCIOgFDvdRQ3sxCpu D1XhzBN0WMUod6h2Nw12 dHI+ZAFpHMA8sMpbUXrk y803HlEmk6ytBYL4 oQUxCNfjKOT7D97bn7Y0 GDIsCKKaKPN6cHK8gZ4v yUlsrbnnM8SqrDXzTiR3 NKE7iIFqqE0jaLlt ejfbsN7rCjb+R94TJD7D FTYEIZ8XGmf4Y3MmOigv dHI+NG43GUSaXV41rEYs jIIsf4wfwLy9GgZf HFXlGTG5jZrpTVsjd6Dn CXJlY87alBZcr7T3FDFv kOadgOPgYhDdoTP6eV7z ZPmnmkrcj2uewtjo Ftpxk1ubwn99kZ06S97u QDgwOZSlKVL1OERmSNLb cTlupw0siG3kXy7+IDxj y2efo8tksHs3HgFh FFZmqgRrnZxuGBM6y6Yw Nm12Q2UvuMnfp1EwXos6 ui04qKZbj0Z9yYX7RRjn GKJicC0hTZxgNqS6 MCXaOoOhvI51wMHpRXgd Qb1cpWvnjYdyEK7pCOMq dfteYGTuiI3nFWUskUNk xViaJB7tKMSanaus v273OlImKQM0QHIuyQFs C5OfkI9nWxExAJBrXCEw J9TspQJvPFtkB748KIfn OvN6XANgopOyX5Nt ZMNuiOycYiA0t2A6Zq1L h5MclvadBJS3JQvuQRPv ElN1ByAuCcO9S7IsGvw5 CMEvnZlkTM4mO1My OYWyecetqurzyPR7THZu UEPxpA71rXToWOlaYv6o k3J6d121UOPyCBYbtD18 Am9nzTibSKLodGOE zU8vzrawl7gdyvqqKoNs THDmEOk8RPd3EOHojVbt GjMaWPB8MhX7NUW6eAVk tT6cvWvacgwqjK6k Oyc+E69inP5jVVE6LTC6 sopfLFYuheXfLV53AJ52 U3BmQjwtgBKccNU+PGRp icHsqVyxFK9xNaRy q9uqs9VaCTycA0NlJDEz RPreTbr3TCFrRPB4aKQ8 pE1nIKGgRKzdz3J1uUA6 D1PvsjJvgv5xf2xh GFKpXMpoA69cmYOtk4U5 FIStoAG3AHJqdXubRgMv yX09Bbb+WPTtqYftv7Tt Xvklq0rce5sfgYa8 IjMwJSIgdmFsaWduPSJ0 r0FkPq04S15yBXruQMXp ZWWjEAYzQQSjhHhfnj3a jZ1pTf9+PGNvbCB3 tXU4fR5wKXQdDfG6FGjc A714MaTwfAVsJeluk1nm h3zudPh2YuFdJTMqgqHa rXxhWWI2v9UiXh65 U62fMNuaQNZxIAVjISHb UICeuSztyf5ijC9aAl3+ OH4ov5grqd45cF83tQY+ WAWbKQA5hQchZXoz ZGPvfY1nXBxgIjB0BKDs XpJgpU05bYTnIPzkLr7d bRhlrAddAW8pSXJwwrqx k329OgAiq9bpJOQr bMPtQHfdQDN5L07ry2I4 FUZkXVIiMTR2qAO1jE0b bGlnbjogbGVmdDsgdmVy nKhrUZclGCsmF436 IHRvcDsnPlBhdGllbnQg DtQpWHb2N2AbBsz4JZTn rLfxHK4mqSHuZWubPl7w aBuwkJwzOF2uVXDj enhpt510AgPmh4zvFHDo jITnFWmcXBD3Y44nz3U1 FNIuBVYjZUZ5aAV9sP1n bGlnbjogbGVmdDsg qsEgkEupKMxfRZhmC690 IHRvcDsnPkJpcnRoIERh vRU7NK72XF60mYFcd3Z2 oDO2N3RnZXDvwari jhrmlDT0PTXuLAKdwX58 Aq9kuKmvTo4lLOEnSWS5 NSZikGUzO0CyfE9eDgQh LTHsSQYzB8SjgZNx TCgxP294HAcgXoU5UTOq xbOwX0NdBKExwOvpOoU3 v5Q6Jn7JK3R5NP69OE89 aZLvl3Q4oIR5C5Ov JGHidyjuhoorkHG2LQAw RHHcmC05Mm5vhIzqZl9s UYMgCAE7QFLawZMtR9Fn yD1uFfQuCIAtBNQy G0WonQKoRHrmL928MFro RoK3YKVoyjCrE1KkSOSw jWfrThC9p2X2Md9MPQy6 GU04SI83qFJnz8D8 iWL9O0IoBPAculwiucla kNL1TPRsGSCejS12Qv2i nYhiGh4jUGOnQQZ4JJXy aSKbZ7GgaU2bGqTy PYPhDDXtG2YkdVIlLCrf O747GNhqVrM8ZSZenlYo D2FpCGAwmIblDoC4s9V5 Gt0AFHQpQG91KQW0 rLB6ZZ87IV57N8OcBtna dGFibGU+PHRhYmxlIHdp ZHRoPScxMDAlJyBzdHls MF3rFl4iUMQzFIOn xPdikBYfPcWjo2zkTNBu XNpmFL9arVvaZ4MkyQQ2 BRVxa9f6Bq76M27hQ9Il dXA+OFUdxBN5dAG6 nN0aPkEaCfR7JTkjF795 SpKkvPZjIwniy4jfm6qf dFw0MsK1PFSzjbHrdHln KGP7e4ReQs68P37q IHdpZHRoPSIxNSUiIHZh xFqaqk3zfT0hUr4+PGNv eTN2qXQ7qF3uEgMkTmL0 XAnnO685GgAnfMLt Daiye8fat5qqmZp9EvNi DDEmqnTsqNnqXXX0u5Pd Sk68W8KpyKzoj0EpZtb7 sd94dBOwn5U2rWZ4 B3OqCBMfiwmskMBmqDdo HA0nFGZfziipGLJwpB4u HJIuK7q6JjGfIuZ9SNny K9AatbN8DRScfAJg YQxfVRN8S29kk5I6MXPo JUEdLNK3jHQ4rD9fhYhi bjogbGVmdDsgdmVydGlj DNbuSNmhY382WJPa cAvdYTDbeH1rZTJbbYPt tNqsTD6wDCScckmbUpzN SURFTEJVUkcsIEpBTUVT BJA7S3YaHvl6SYAr iJjaJP4roWLeQGwuFp6g mCxjrEyyZP3jWMOulvzx SITelI8lLGBpaQLtwKfz MB7nERSjlolnk046 BwYzSZQ7ARPaaKAlC6Mz nG4kNpUzWCElJVBxY6Nl aCPxRXgaH792IKycXmA1 VOLhoeQkV0SbDGTm eMyeClS6x7A1Kp6fNq7v FQ1lSWH8TO38HG04gMJc i5K5oCK3Y7KwIBJgfitw rwdbvLQ6GTLrPIOp wV16aNJrSUdcDc8ij8N8 y534YIWuCBUroE52Db8g jYiaJRVfwTACgT0obicf v3fnbfnsPmWjIUVa NYv1FNf3XOVzpVptQcVk MRF0OgW1JXI2eYFflC8u wZmrpnuggA4jGao+NjYg SBLubxF2L5OeCfo4 RCDleZggRF9prSGiHQbn Ar1gfKnymTcwZW7jPKLn xdzlNFXiwZ6sOIBbzVYz kRciFZ9wEZDkywtq b267IbZoOXK3AHFwrEEq D5JgaY0oGwMmFOOoKMYu U1SpfASeTRklP402HDny VpB8DDDckzYmT2Uw GCNakSewDaG1y5A5Pq6D BPuoHM59XB65fAAke0J2 nPP7U1QdIBOcpxcyrfxt rOZ8KGDuOXFqlA03 zFSvKHiiRh3wk6D9x731 BKMtHTMctX88Si1flTyt IEHgaAPFiB9oxnbkx4ww cjogIzAwMDAwMDt0 EVl1CPHjvAxxUfGjBXN3 EaJ5IFZ4qQLxlU7fpNly rdojfO3pWso+HR2gcStb iX8ouB9HWH2aUIYu uTKWeLFjXLG5PP44UE15 S4HvHsvupVKsnZO+PHRh YmxlIHdpZHRoPScxMDAl PcTfdMznBT1nBr0n ZGVyLWNvbGxhcHNlOiBj l7dbJESuREpuQF0rbZqd W9MmbBD3YYUdo0w9Xv62 O96zU3RilFQ+PGNv oKM0cSO4nI4qKaCnZgU6 CKhjG007JnWlqVGfGzpx e5dov2wkmWy7InXyBRCp xcAcxTccOBM3u3Cb As65T66mJNtwXGIpBASc CUAvLJLciOcuqf2uvZ8j Ii8+WUNvuAX8vUG0eL7d QlMlLvP5YDmoA585 KwXtyQYwStqkC84xQ8Qk dXA+KOKnDhl2XXDvuFhy ZS1upPVsAPhvEs1hSEN8 MpHyTmGqNZvuW5Ti IOFmitytrwvlxCJ7BICd XNKuyJ64Ql2vjNlpCp9a NLNuSZG8FSAaqTYiX8Qg bK2jPcSjKTWsQBFt P3CelUJhAFdbI180NQxt UsQ3QRLhzqHxM8PyGFIm zCgcBjY8x7D1Hy4GpMmd xQWqYV0eEgQqCEq4 D3IrFrz7YGDefMmfTX8l qZUjIJgpOn3smKusjAot UZ4kSGHhsukam104FuIx e2duWPBgvZVsFQdb KST3E95zn9H6NENjOCCo JRK2hOE7bW5waHcgxzbb bGVmdDsgdmVydGljYWwt NKdnK856GPUorLlq BxCCWnd9L2XoVxc6DVZe gWdvHA7lvZUyKHmiFy2t jBrgjAzaKY7iKFAmpnmn i298GzBxy7gnSCNq fFKgADbqFYR4C82yz5J7 PZPvNNFsQVY0pNT2gX1m bGlnbjogbGVmdDsgdmVy rTimPVzxMKgeF925 REWtmNofPx7JNdg8A5Be Adu8GFPknJjhVD9oaVFs FPpgIp8kfTkdwInyQU7p VMUrghqjl945IaPg w6ssRVLiwIFoJWjiNZP2 T87kr5F6QVLeZIKgMHB3 kXN1qR7gkOrldelcuJXc dDsgdmVydGljYWwt LWbpB592UVHpuRoaYtXz eWVyOjwvdGQ+WN30en55 R0NuDadlInv3GAHyXTT7 eOR5lD9sZNPiGIlz c3R5 (more content not included)... [facility] Main OR Intraoperative Recor don 07-09-2022 Main OR Intraoperative Record IntraOp Document Type FT Summary Primary Physician: Milvia Palomo MD Finalized Date/Time: 07/09/22 13:38:52 Pt. Name: EUNICE MARTE Quinton Huertas/Sex: 1955 Male Med Rec #: [id number] Physician: Milvia Palomo MD Financial #: [id number] Pt. Type: A Room/Bed: [place] [address] Admit/Disch: 07/06/22 10:08:27 - 07/06/22 17:20:00 Institution: Case Times FT Entry 1 Patient Times In Room 07/06/22 14:55:00 Out Room 07/06/22 15:47:00 Procedure Times Start 07/06/22 15:09:00 Stop 07/06/22 15:41:00 Anesthesia Times Start 07/06/22 14:55:00 Stop 07/06/22 15:47:00 Last Modified By: Katherin STEEL, June Chiang 07/06/22 15:47:46 General Comments: 07/09/22 Chart opened [...] WITH ULTRA(.) Comments Last Modified By: Katherin RN, June Pandey RN, June Parsons RN 07/06/22 15:47:47 07/06/22 15:47:47 07/06/22 15:47:47 Entry 4 Entry 5 Case Attendee Erik Lynn RN, June Chiang Role Performed Overnight Stocker - Primary Overnight Stocker - Primary Time In 07/06/22 14:55:00 07/06/22 14:55:00 Time Out 07/06/22 15:17:00 07/06/22 15:47:00 Procedure PROSTATE TRANSPERINEAL PROSTATE TRANSPERINEAL BIOPSY WITH ULTRA(.) BIOPSY WITH ULTRA(.) Comments ORIENTING PRECEPTING Last Modified By: Katherin STEEL, June Parsons RN 07/06/22 15:47:47 07/06/22 15:47:47 General Comments: PADMINI WILSON - FORTEC REP. Quinton RUIZ - PERINEOLOGIC REP. DAMIÁN RUIZinformation security risk analyst Protocols FT Pre-Care Text: Implements protective measures [...] Out Scout Lamas Jr., DO Given Participants GDewey MD, Sunny Alegria CST, Shane Bell Terry T, Barbee RN, June [...] and tissue Entry 1 Skin Integrity Intact, [place], Warm, and Skin Abnormality No Dry Outcomes Met? Yes Last Modified By: Erik Lynn 07/06/22 15:10:56 Post-Care Text: The patient is free from signs and symptoms of injury caused by extraneous objects Patient Positioning FT Pre-Care Text: Identifies physical alterations that require additional precautions for procedure-specific positioning, verifies presence of pr (more content not included)... [facility] Postoperative Documentson Postoperative Documents [id number] #1.00CD:127 [facility] Coding Summary.on 07-07-2022 Coding Summary. CD:[id number]:[id number] Gh0bWw+PGhlYWQ+PE1FV GBtD97qoTMfaM1WS5bFY S4UQBTRWOUCOI5CPO3dp BX0PFscI1OlvyZj WspagVWoHC94QSr7LFJ5 qQbqHVppnU3piZZnD1b2 UiHtXL42fA66FSkuYRTc WoK8NdIzgtvquEQn J9dpLaPphSIxThp+PHRh YmxlIHdpZHRoPScxMDAl QpQnbVwpSY1zPw4xQHPs LWNvbGxhcHNlOiBj e5jdEFElPVrpES2zuLon K4DsbEN3EHCuw3c0Sz21 dHI+XLTuPZR4aYbpHNrh y012ThVog4npDNF7 sNUxKWtgIMJ9R32gj9E6 ABGkXESuYTE3jBZ9bC6c jTmicjryX4BniSQsWbE8 NBS8rMQiyT5miUnd wuyfwM8bXto+I57STK5H SNTORD9DCag4D3SnVmoo dHI+EX73BFWiXC69dZKk fLSln6qezKs9YdNg FJAxWSO0oWunCEssq0Rn ASQyR59ldYFgc2S6MZSn lNxxxMLqUvCntID8rU8w PCbiyyvno2joehgi Dckas6ljvj25yL03O41h ZNhsQKBvEZF5JUYrDAOi kJwpnh1ijB4oGw7+IDxj y6uhh3fvaAb3BmJa LOFkzsUnxLjrFRA0j4Do Ct36Z8UzrBtdi0PoSau3 fy99vUIyf8J3mHZ7RVvd PSBopK1rXDtzWxB3 WMIeOvTrcG64kDBpDTws Ni4jaDtzyIrhUI1wMQXj agwqQZHvoB7dVUKamUWa fJnnWF4wJDNsxizv r400IhDgOEL5EUUboXVz V1DldT4hViNrPJYhZQBe A4AtcZMoSPldH881TAef DwK8AUDbszXaO6Xz EPMzuNzvKkF0f6H0Sd6Y q1GffwseIXH2MPbsEUUd ZaH1KzYbNgU6A3QqUls3 UFVjkPozYT2cR6Os VEGshrowfmdvgJH6NVQp MMMnqX63eUNnLZwjSz3z w0E1o194FCOnNEKazJ78 Tc7azGzmBBAglBTE jD7zkcnff2okijtrEfOe CCPkZSf4ISc6KGYjoOex UmHvNHN2VnL9IIB4xMUm uI9gaFrcstsxfL1u Oyc+G98yeI7lCGL1KEN1 wipbXCYpwpLzPV16WA69 D8ZnAhzdgILblZE+PGRp vuDjnRoqRU5pNxKk l6urr9AdEZmiY2YtDDGv TQrhPyg9VRJcWMB8nUX0 sY5dKQFhQMdko8S0gWN4 S9UcgzMkdb4ki6bk PADjNFfiA22gwFCff8P4 RLQbyEE6KHQptUvkKtFo wA94Vkn+UPZzwQowo7Dw Sthcy6ouo0jjbEq9 IjMwJSIgdmFsaWduPSJ0 c8VsNk77A61xHEkaGRVv JOWgBTVpTIEatWfvoj6o jO2aYv5+PGNvbCB3 rVA4dH1vOHMbEeF7UEuy G570QzSqaDGcBnfvy6oi w5wgxPq3AcZeLINjyoBn cLhsRMP8s9XhRw01 W78tOWnuMOEmZDZgQFLq BXHurOrbdy5yjQ3hRh6+ LA7fn0sejb44vM48kGD+ VORqYNI0eBsnMRyx VUHpsH9rRSkgJiX9TRCd HkTzbU79fCDaPXoiUr1g hXqmjVsmMQ4jWEXhonur t326KoZed4ifCFWk rPDfYZvtAJB4D28di5M7 DWNxBWCcAXF8bVJ4dM7l bGlnbjogbGVmdDsgdmVy rPdkZGxxHBgzN039 IHRvcDsnPlBhdGllbnQg QsSvVNz5V0EhWuk6ZFCj uRyaHO5okYNcLOhvEg5d iHowxSwtMM3gWWWl vrqdn310HpHqj1jrXFIx iEAqDYrkCUB5W18qh8K6 WNScDWNpLTY7nRM7cK3w bGlnbjogbGVmdDsg ewIsgUwqLVddUWzoD431 IHRvcDsnPkJpcnRoIERh nWE3BL71HG75rSBtm9E9 rID3B2OnPXDqqdkn imeiiQE6XKThUCEkuJ27 Qo0ifQtiEt1iAAToRZV2 DHYqkRGsC1FytC4pKmFd AVGnNXDgL4QfgEQw AQulV340FTpqCqZ7KNMm uiPgW8JqHMKmlAxlCaC4 b1K1Lb8EQ7G0AH26MY38 pAAbv1F8wXU5O8Ki UGMmgbtbxxgzoMA8GMOw TEYgoC29Fz2efSkgMb5j VXLkXYV6TIMhiNTyP1Zj yR3sWyCwUAZeXYFy Q9BwoNMiNYlrN323ZBgs IaT3HMLbcgRoE8KjZOKp aSbnIlF7k0H3Gu6ZHLd7 RC00QG37zOLwa1Y4 qMI5S6ExREWvxjsiwazb jBP9JJZnZTUuiZ30Mm9b pIeiCt1wUCRsMXB4UJTo sDPrL8YhyK3qWlHq ENYjIKAhW1PrdZUoWQlb R887ETbzOzD6DWUmpzZq Y9PlYZJevLnfBbN6i8Q8 Oa5XZCFhZR81TOK2 qMF6FL06ME33Y2VkYdxo dGFibGU+PHRhYmxlIHdp ZHRoPScxMDAlJyBzdHls YO5yGr8cNNJdRFBv nWpmrWRdJmZzw7rrSUSp WAllPA6frBavF4BfiLS2 ZISel6b9Jy97S70rB7Jo dXA+PGHchDT2xAW2 kH9bHgWoEoP5JLlcD535 AjMwxPLaEhcar3zws0mx sVs5GnJ6YNXlzzGlaLpp WMY0d0WoAa14E74a IHdpZHRoPSIxNSUiIHZh zIuemf8mjH7oNn7+PGNv xNK0pYU1yM3yWeGoIyM1 SRwpM804LwJrhBKr Suket5iol6sorVx9JhZo MQQkyuWuyAtrXTP4b2Ig Qs04Q9AmtPebu7VoFaj4 kp59eVUxp0P7qRM2 R3MrTQSyudibcPXmlJcl HT8hQSShuebrCUFhaK7s ZAUpO5x2XsBoOcU8VRjq J2MeyyB9YRUucOZf MKmdRWX9P74nl6O8EEXl UJJoCYH0uTF0hD6qwXur bjogbGVmdDsgdmVydGlj SAomOSzdC508ZCHy uAchTBYsaC4qKRWezPEo kEtwZH7uBQLuowatUfqV SURFTEJVUkcsIEpBTUVT AVK2V2OkYpd6IFQg eOcoDW9smGTzXUobVe3n fSlieDtvOW2uQBWepnlf JBUsxC4xCNSozMPxlMaw EM0eCJBfsrnvk764 EdIeFUZ1JXTvkKBfR1Wq aZ1zXeAoWVCcWOTlP8Ix dFIoXXcfJ986SUktLlJ8 GHHvozHdK4RhDQQv bAssSaD1s2F5Iz3hUr9x VP2aRNS7FT50MI70lHUe c7D3vBA6H6VjOKMlrivm vzsoiUH9YHJoUQVn iM22nBHxCIwaDw3gz1R9 q600FAXvLNFelW94Yr7r xBtoLWUjjXPQzO4yfmhg s8gzmuhsGrXtAPHi MPw9OLh8JOEzyQfdIuTy UCJ1IzA8JCL1gSFgyN4i hLwxoijejM2eRfu+NjYg SKQfvuX5H7GnQwv7 HNLjnCojUU9xxUReZPzq Nd6uuYtgqUvdNC7lJAHm hvatBLMrpN3jAIYftXQc kLpsXX6cBUDynjhx p975CsQdKZW3CALtmPKl G9ZswO2tSxCfIWCpXFTw G7YvvCPiZCcgU344NPhm UiO0TKWokhVsI4Da ZWEexUwoEkE7i4K1Ug5B HMobHY08CW09yTHqb4Q3 iKC8L3ZfBTKlreywxgqa cVH0GUKgBWPttB59 rXPxHVqnQp8qc7G4k604 WVAcTKCxtB18Up0roBzt FLJetFCIpU0cojwpl5my cjogIzAwMDAwMDt0 LFg2CDOqmLudVvMbMCP7 GzJ7OSL3eGYivT6zmZug bwyzuA9qAxp+W2G2lGP9 aWVudDwvdGQ+PC90 em19N1GaOdjeGxz1RZOb KFO4oYL7nO1tNFCcPOhy t1Y0yQH0Q4ItvxAjkf7g s2zjQUWyXZixE01a zBFnh4Z7NWJdlOD5YSGq cRghXgSpgE09Hgd+PGNv aPsxj9LrPpjcs2jlo3jg vXo0HjThDNRbplGr kRwlCWA0m8WtUj04V82a IHdpZHRoPSIzMCUiIHZh hHltcw9qdQ2zHv4+PGNv kGR1oQK5vD2ePrAs NgP7UKfuX988ZvTzhEHz Uncjt4tle7bybBj4YaMc TPAbgtIraBpwOPO7a8Pp Ks41R0DiuUmot5Bf Uoi6jz91xAJxf8F0sQC5 W6VfWTXyzjspeVLnqSxc QN8tUJGknynePPHowC8k RPOkE7s8WgSwYiB8 KOmfP1SkklP3CXUzjFFk BUQwtOMWcO3kxdnlm0cv rqtvCrMuZOAqCHy4UIl1 LWFsaWduOiBsZWZ0 WoK8CYQ3lWEqmI5aoFfr xheeyE1eYpd+DKa2u3go yGSqEU8ysKW7KU67NR46 pPEie7W2cGY7H7Re DSNyjusvhyhkxXP9ZUZk CWFyeK47Bf5qnMhfOy0x BTTmDDU6RGRshGOzJ4Kp cX0pBjAiMYLkLALo Q1OuiLMeMMqrI046XRft MoG5KWWsfjCwV5DnUBNh xAwxBdL8w7Z0Yb6DUC75 CQ09EL65bNAop3S3 cVQ9E5DeOHNnrjmjbugw kJU4JBToGXJwnI54Gl2n qEoqGf0cIYQoKMH9QYCz eGFkR8WdzV8bMjFh RAKuELRrN2WymBBvKZmd D941DYhzXsE2JVAterHt X5FrTKVpzXzyCiE9x0G9 Zd8KKh62ZS33DL31 xZZzd5C2qBB8U8DeKRIw qiyhepxujEN9BOMwTXNx qI58Xl2xqAwmAx0sCDFv AOG7NSYfvTOiH0Wj pO3hApWjWAVmHHFuA6Wc rCEkJBbtR940WHksNdQ4 JSDoolXoB1AbKJZcmTfo RhE1l7H1Zm6HHBuq mzl0C0YfAjrknLP+PC90 JJQgJY69rUSkxNWqe2jf tOx4OsYyHIBhFXV3qMsc AQple4CbWUGlY76z bGFw (more content not included)... [facility] Consent for Anesthesiaon Consent for Anesthesia [id number] 2#1.00CD:127 [facility] Consent for Procedure/Surger yon 07-07-2022 Consent for Procedure/Surgery [id number] 8#1.00CD:127 [facility] Discharge Instructionson Discharge Instructions [id number] 5#1.00CD:127 [facility] IntraOperative Documentson 09-06-2021 IntraOperative Documents [id number] 5#1.00CD:127 [facility] IntraOperative Documents [id number] 2#1.00CD:127 [facility] Preoperative Documentson Preoperative Documents [id number] 4#1.00CD:127 [facility] Preoperative Documents [id number] 7#1.00CD:127 [facility] Prescriptions/Work Noteson 09-06-2021 Prescriptions/Work Notes [id number] 5#1.00CD:127 [facility] Capillary Glucose POCon 06-22 Glucose [Mass/Vol] 216 mg/dL High 55-99 [facility] Comment on above: Result Comment: Jluis SANTANA Performed By: #### 2 [id number] ####[facility] [address] [place] [address] Glucose [Mass/Vol] 233 mg/dL High 55-99 [facility] Comment on above: Result Comment: Jluis SANTANA Performed By: #### 2 [id number] ####[facility] [address] [place] [address] Glucose Cap <20 Abnormal 55-99 [facility] Comment on above: Result Comment: Repe at Test Performed By: #### 2 [id number] ####[facility] [address] [place] [address] Consent for Treatmenton 06-22 Consent for Treatment [id number] #1.00CD:127 [facility] H&P Updateon 07-06-2022 H&P Update [id number] #1.00CD:127 [facility] Inpatient Patient Summaryon 07-06-2022 Inpatient Patient Summary [place] [id number] [facility] Clinical Discharge Instructions PERSON INFORMATION Name: EUNICE MARTE [facility]#:[id number] PHYSICIANS Admitting Physician: Milvia Palomo MD Attending [...] Address: When: Milvia Palomo [address] [place] [address] [phone] Business (1) [address] [place] [address], [address] [address] [phone] Business (1) Comments: Office to followup appointment in 2 weeks for pathology review Type Location Start Finish State URO Office Visit [facility] 07/21/2022 9:30 AM 07/21/2022 9:45 AM Confirmed URO Office Visit [facility] 10/12/2022 10:30 AM 10/12/2022 10:45 AM Confirmed MEDICATION LIST Medications to Continue with No Changes Other Medications albuterol-ipratropiu m (DuoNeb 2.5 mg-0.5 mg/3 mL Soln-Inh) 3 [...] Tablets By Mouth 2 times a day. hydrochlorothiazide- lisinopril (hydrochlorothiazide -lisinopril 12.5 mg-20 mg Tab) 1 Tablets By [...] needed Other (see comment)., skin Comment: [facility] Laboratory - Chemistry and C hemistry - challengeOrdered By: Balaji Collier on 07-06-2022 Glucose [Mass/Vol] 216 mg/dL High 55 - 99 mg/dL FTM C POC Subsection Comment on above: Result Comment: Jluis luna RN/ Glucose [Mass/Vol] 233 mg/dL High 55 - 99 mg/dL FTM C POC Subsection Comment on above: Result Comment: lJuis luna RN/ Glucose [Mass/Vol] mg/dL Invalid Interpretation Code 55 - 99 mg/dL [facility] POC Subsection Comment on above: Result Comment: Repe at Test Main OR PACU I Recordon 06-22 Main OR PACU I Record PACU Phase I Document Type FT Summary Primary Physician: Milvia Palomo MD Finalized Date/Time: 07/06/22 16:28:27 Pt. Name: EUNICE MARTE Quinton Delvalle/Sex: 1955 Male Med Rec #: [id number] Physician: Milvia Palomo MD Financial #: [id number] Pt. Type: A Room/Bed: [place] [address] Admit/Disch: 07/06/22 10:08:27 - Institution: Case Times [...] By: Chen Ramos RN 07/06/22 16:28 [facility] Main OR PACU II Recordon Main OR PACU II Record PACU Phase II Document Type FT Summary Primary Physician: Milvia Palomo MD Finalized Date/Time: 07/06/22 17:20:35 Pt. Name: LYDIAEUNICE/Sex: 1955 Male Med Rec #: [id number] Physician: Milvia Palomo MD Financial #: [id number] Pt. Type: Room/Bed: [place] [address] Admit/Disch: 07/06/22 10:08:27 - Institution: Case Times [...] By: Yissel Arellano RN 07/06/22 17:20 [facility] Main OR Preoperative Recordo n 07-06-2022 Main OR Preoperative Record PreOp Document Type FT Summary Primary Physician: Milvia Palomo MD Finalized Date/Time: 07/06/22 15:10:00 Pt. Name: EUNICE MARTE Quinton Iniguez./Sex: 1955 Male Med Rec #: [id number] Physician: Milvia Palomo MD Financial #: [id number] Pt. Type: A Room/Bed: [facility]/ Admit/Disch: 07/06/22 10:08:27 - Institution: Case [...] Signed By: Erik Lynn 07/06/22 15:10 [facility] Monitor Recordon 07-06-2022 Monitor Record [id number] 5#1.00CD:127 [facility] No Panel InformationOrdered By: Lab CHERUser on 07-06-2022 POC Device SN [id number] Invalid Interpretation Code FT POC Subsection POC User ID [id number] Invalid Interpretation Code [facility] POC Subsection POC [employer] [place] Invalid Interpretation Code FT POC Subsection POC Device SN [id number] Invalid Interpretation Code FT POC Subsection POC User ID [id number] Invalid Interpretation Code FT POC Subsection POC Usernam[employer] [place] Invalid Interpretation Code FT POC Subsection POC Device SN [id number] Invalid Interpretation Code FT POC Subsection POC User ID [id number] Invalid Interpretation Code FT POC Subsection POC Usernam[employer] [place] Invalid Interpretation Code FT POC Subsection Operative Reporton Operative Report Patient: [...] perineum is prepped with Betadine solution. The [employer] fusion biopsy system was set up [...] . Impression and Plan Diagnosis Elevated PSA (FOW87-IM R97.20, Discharge, Medical). Diagnosis Elevated PSA (HES25-UR R97.20, Discharge, Medical). Counseled: Patient, Family. [facility] Comment on above: Result Comment: Elec tronically Signed By: Milvia Palomo MD\.br\Date and Time Signed: 07/06/22 16:17 EST Outpatient Surgery Discharge Instructionon 07-06-2022 Outpatient Surgery Discharge Instruction [address] [address] Patient Discharge Instructions PERSON INFORMATION Name: EUNICE MARTE Date of : 1955 Current Date: 07/06/2022 15:49:28 PHYSICIANS Admitting Physician: Milvia Palomo MD Discharge Diagnosis: Elevated PSA EUNICE MARTE Quinton has been given the following list of [...] R, have received the attached patient education materials/instructio ns and have verbalized understanding: May we do a follow up call? Yes No I was present when discharge instructions were given Patient Signature Date Clinican/Nurse Signature Date Follow up: With: Address: When: Milvia Palomo [address] [place] [address] [phone] Business (1) [address] [address] [place] [address] [phone] Business (1) Comments: Office to followup appointment in 2 weeks for pathology review Type Location Start Finish State URO Office Visit [facility] EU Sujey 07/21/2022 9:30 AM 07/21/2022 9:45 AM [facility] 10[facility]30 AM 10/12/2022 10:45 AM Confirmed Pharmacy Information: You may receive a survey from [employer] asking you to rate your care experience. Your feedback is important and will help us understand what we do well and how we can improve the quality of care we provide to you, your loved ones and our community. It?s an honor to serve you. Thank you for choosing [facility] HERE ARE THE MEDICATION CHANGES THAT OCCURRED DURING YOUR HOSPITAL STAY Medications to Continue with No Changes Other Medications albuterol-ipratropiu m (DuoNeb 2.5 mg-0.5 mg/3 mL Soln-Inh) 3 [...] Tablets By Mouth 2 times a day. hydrochlorothiazide- lisinopril (hydrochlorothiazide -lisinopril 12.5 mg-20 mg Tab) 1 Tablets By [...] Tylenol alte (more content not included)... [facility] Patient Education - Texton 1 09-05-2021 [...] for your post-operative appointment in 1-2 weeks [phone] or [phone] [facility] Progress Note-Nurseon 2021 Progress Note-Nurse [...] out of the anesthesia guideline protocol. [facility] Progress Note-Physicianon Progress Note-Physician Patient: EUNICE MARTE Age: 66 years Sex: Male : 1955 Associated Diagnoses: None Author: Scout Lamas Jr., DO Postoperative Information Post Operative Note: Post Anesthesia Care Unit. Anesthetic utilized: General. Health Status Allergies: Allergic Reactions (Selected) Moderate Penicillin- Unknown. Severity Not Documented Labetalol- Unknown (origin). 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 Elevated PSA / SNOMED CT 0499891606 / Confirmed Eosinophilia / SNOMED CT 9101070213 / Confirmed Erectile dysfunction / SNOMED CT 6956942824 / Confirmed GERD (gastroesophageal reflux disease) / SNOMED CT 930582574 / Confirmed Hyperlipemia / SNOMED CT 80710855 / Confirmed Hypertension / SNOMED CT 0877956707 / Confirmed Incontinence of urine / SNOMED CT 3951150279 / Confirmed 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 Plan Transfer/ Discharge: Condition stable. [facility] Comment on above: Result Comment: Elec [...] # 30 tab(s), Refills(s) 6, Pharmacy: [id number], 183, cm, 04/21/22 11:40:00 [...] tab(s), Oral, BID, Refills(s) 0, Blood glucose hydrochlorothiazide- lisinopril 12.5 mg-20 mg Tab: 1 tab(s), Oral, [...] 0 Histories Past Medical History: Resolved Stroke (297444137): Resolved. History of CVA (cerebrovascular accident) (7293502513): Resolved. History of DVT (deep vein thrombosis) (9747570929): Resolved. Family History: Diabetes mellitus Mother Sister Hypertension Mother Sister Father Diabetes mellitus type 2 Mother Hyperlipidemia Mother CAD - Coronary artery disease Father Mother Procedure history: Transrectal biopsy of prostate using ultrasound (US) guidance (5691750722) on 09/08/2020 at 64 Years. Colonoscopy (345378338) in 2011 at 55 Years. Arthroplasty of knee (73917763). Arthroscopy of shoulder (634413552). Insertion of catheter into spinal canal for infusion of therapeutic substance (1705505450). Lumbar discectomy (008447695). Comments: 06/25/2022 15:29 EDT - Lulu Peralta LPN L4-5 CE - Cataract extraction (1510532749). Social History Social & Psychosocial Habits Alcohol 06/25/2022 Use: Current Type: Beer Frequency: Daily Substance Abuse 06/25/2022 Risk Assessment: Denies Substance Abuse Tobacco 06/25/2022 Tobacco Use: Former smoker, quit more Smokeless tobacco use: Never (more content not included)... [facility] Comment on above: Result Comment: Elec tronically Signed By: Scout Lamas Jr., DO\.br\Date and Time Signed: 07/06/22 14:09 EST Outside Radiologyon 07-05-20 Outside Radiology [id number] 0#[email or web address]:127 [facility] Coding Summary.on 07-02-2022 Coding Summary. CD:[id number] Gh0bWw+PGhlYWQ+PE1FV IHiN99llVSnmJ8GF1yTZ V2GFYZNTQTCQH1IFM4cy DF6AKemJ4MluuQn VxewrABcRZ12XFz0BIV0 oKibERfhrF9vbCXfA7h2 AcGdLH68sJ35UAqkGSYn SlD1OcGtkdokmZPn Y1qsSgNesYAiHsw+PHRh YmxlIHdpZHRoPScxMDAl KlSwgItbUP7mDp3cDALv LWNvbGxhcHNlOiBj w9azZFPmXDhzPZ1jlBqw L9WgwQB0KMRct4v9Cj13 dHI+WYUfXIF9pAnbDYzu u308FeKdq1npNLC8 bTJtHLfcPAT2X68vn4K9 WXGnLFAsQQG9zPP2wU5i uStvckihT3SztHUgEbT4 SPV3sOFkaP2tiSlc gteotU3tAgf+G13PLT0Q VDMMAY3EIod2B4JpHzxz dHI+BT97LLGzWG41bZIg qCIid9urnBk6TjIc DEGeVKU0gDkkIUpgs6Qw HHWiD75uyHIae2V4UUOn uExbzVIcOpXgzIB5pY2m XWdcegeov0plhjlb Kpkha0zvuz52zF72T76v UNekUETfQBD4HSQyYPMm oCwbxs9upW3gLf3+IDxj g8lcb5aiyUy7XuQv SZWlixOfcUhcMJV4i9Bs Xf91U6OcrNynh9QeUps9 mw78bDOuh6S2wRN8CGcg GNIwlH4uHViiIuW7 YMNjYuIhkL98qHNsXFgo Ys7suLykiLbsFA5qLQUt jfeaKOWuqH6mBFLpyGPg rExnWX2pBDLbvsox n917EtOiSBB1UJEciJGg C9UjnD3uTtVeNRLuONVj B8BzrWVwCDahA035EGrn QeW2XONediQrD6Ur AHCqkIraNzJ9w9B8Bu6T l0RrdeuhLHS7UJzgIAXf LgAcCsIxHmJ0X7HjUtm5 FEKqcEylHC6oH7Ob EMGwxqdgkorjjBB3VODp EQIxtJ20mZGuPVuyAh7e h7U1z116HTNeMXNtlW82 Cc3pgYaeHOIjpZZB yG4itxxyy2oqlrmoZjHv PXZjNIg2WOi5ODDnaYnb EyNnKJZ3YiS7XUN3fBSq vG9yeVfovjafwV7i Oyc+H30vwO1eEQU1VKM2 wznuXSZppuHoTM79TB35 S4JaHluxlIBpzAD+PGRp srMwzRmxOS9lReDa k8jdk3YmQNwoZ5BvDNLv EGkhNjl1BJPsFNO9fUV3 oX5oLYXaCUxzx5B0kGF3 L0TtomOtww0sm7il PHUuOAmxD03itGDcl3N2 FQQhxMU1KZCohLyuAnId hT73Lnf+AXGxgAloi6Ox Zqwhu4ttl6xziBb5 IjMwJSIgdmFsaWduPSJ0 a4AdAe86G66iXFqrAZVu UKFkYFBwMHZhwSfvpf5y mI5sCy4+PGNvbCB3 oQE0lE2vACTvTwU3HCtl A807EjVozPVbWcrzx2lh f6hqvLc2FsFoWRPeiqXp cWdbOEQ2w6EyXo16 O97zNXqrXYJrGUQnSKSr RMQftCkbqr1lzK6kOl8+ UJ2ax4jcwq16bK72uKD+ GMSyZMD0nHqnFPjf YNDktT0bFTpmMrU3CNDl HnBqiS92bLWaOXxaCz3j hGkwuXjiZN7bAVLahpgd g469PdUrj5gkIBSn qRFjPZxhCNT8N02zh9Y6 YDDjKFJdAVR7eMQ9nA9v bGlnbjogbGVmdDsgdmVy iOadLBeiCGhnU021 IHRvcDsnPlBhdGllbnQg PsDwSKw4J9YgUpb0KDBi jQkcCI1gwBRtEMmjFi7i fNbziMghYJ4iTNRu nlesd849VkRft6fuZLNz kMUlPLgaNPS3Q68jj5Y9 GQNaZXAhPSQ8iWA9sW3c bGlnbjogbGVmdDsg hcBopGdcFTtxBFtqH470 IHRvcDsnPkJpcnRoIERh lHV5UY27VL96lKAeu7O1 tCW4P2HuGIKqaata jrqekEL8QIJxAFPhsI93 Dg8atBgrEo1vNHUhSAZ4 WIYbnHCgS9UirK5cLiDo SLCyWUGvJ4PkhBMn GMvrO377EMmfJrN6BHBn ucBnR6GrZJSudXknVvZ5 o5E4Zl3JM4Q9OR06HV36 dNMlw7E3qJZ8J5Io QINowvcjzfcktCZ2LUXh QGBlyD35Ch0ywKrkYp4w CBCnTRV4TDUvrZFmD3Dl rP5zQfJhYNDdSLWp Q8MypITqQSjwA931HDih AeE3HTQmrgVrD0XuWWXp jRnuGeN2i6Y8Ha8OICc8 RX66PK89yRTpz3H5 zBJ8H9IcYZCydgkdoxgm dLM4IXYsSITyzT18Rk0e lWytIo0aJLJwGRT9KDPk kAZzM1MxhJ9jRlAn JHDzQGVtI2FidCOpRDtj Y855TLhfUmO8LCLovvKd K3AxMVFdjEixBuC9g9U2 Yx1TAFRbXT75DZU0 wZV1PQ87MU77Z0DoMkxv dGFibGU+PHRhYmxlIHdp ZHRoPScxMDAlJyBzdHls WO4eAw5fNXAnVKQv iOjfhVShThDlc3mgPCLh JPugVJ5nfOvxV4PtvLQ5 JUDjw9f2Ud09T26jS7Qd dXA+KIQydKJ4nVG7 dP9eYbZuSaU4WSvbB875 EaLoqCWvEdzyv0bqk3zj iWs8UlW4MWGlimObdDqq CTL8g0VzDx58Q54y IHdpZHRoPSIxNSUiIHZh mBlhle6yoT2jBi4+PGNv aFJ2uOK8bD2eFcRwEmO3 SFlkL188NaHwgQRy Wqony1avp8siiUl3JnVz KNSyuwIsvCmoTKA5x1Vi Vu89F7XfmKodd3VnFxf1 wa59qDRde0I1nUM6 O3YxIEEeidoueCEhzApc TT5iSFGsqeyaXQKlvU7b OTJzE1u3NjKjUyG7SDsm K2MmbaW1APOjrYRa JIxuICC7X36fg1L6FUNv MUNfZST9aNA5hX3jjJqz bjogbGVmdDsgdmVydGlj CUlwWRwtF119AEWx vUdxHFYbiW6pGIZdnFXl sFcgAZ5bKNMtjozgKxsF SURFTEJVUkcsIEpBTUVT UCT5X2VpObv8OZOr rZjlGV8rdJFjMIsjSm0o aEfjiVrwGJ1qTQGwynex WLVkoM5bGGRyhOIgpFyt KH3wQTKqrzsnq651 FeDjSTZ1YTJuoSOzD2Qp bA0fNrYmZTChOEQdJ1So bBLeEQrtG573QFvkSaR6 UEGvoyPaJ7ItNHSk lBwxJpE8n4E2Un0hUs0s IQ2mYDL9QY82PN33mCBy m4P4rIC9P0MiIWKmcxmg tzfaoEM4YVZuMVFm bU24cPHcRPomEx0zo2L3 i373JUYyORJoeT91Uk1o aXlpPPUwmAKHmB4aycvq r7wudnioJaXvHODo TWo3SZj1EPGckLtaDoDg XFH0NxA8BTE8iFWkeY9o kShlafrikK7oVcf+NjYg HZEfdsB8S9LxLvh6 JURtfFrgAP1nzQGxKDqd Pd6qdUdxqUdlLB5sKUEy kdemLXLxhZ8jAMEjfYFc vMtmSY8dJSIxinmk c595JgHyTRS8FVOusEDa H6ZtwW7fRiNsEVClDMBn E1FpuDZmZFofU307SFbp ElQ0PVJtxuJuP9Bt CFNcnGdtJsQ5u8R6Se4F LJehCJ93ND95oQCmq1J7 uDU4M3OwIYJyqrrwsznj kEB1RGGgHLFdoC67 uCLyVGwxIt8tj4O4d900 VEPeXGNapQ69Ai0akObg AYTldERQrJ3nlvzdc4ap cjogIzAwMDAwMDt0 OAf7OSLjrZprGzHwYTB5 IqQ6FLG9qSFvzM0hfVjx ivndgT9sWvt+UmVjdXJy vU1bRO62OT34N4Po PjwvdGFibGU+PHRhYmxl IHdpZHRoPScxMDAlJyBz fPbiCG9bHf6iFQKoJWZj fExynCWoDwKlf0qm VRMnJBxaRR4mrDdxT5Iy xUE3NJPrn0l9Oe40U11z E3ClsFO+XEAoqNZ6zBX1 zN2cDbXfUqR2KHtn Q139KlVjnBYaOsjek4rk s9wpiQy4GhKlPZNmqmCp sCgdHNS8l9GhFk20Z46e IHdpZHRoPSIyMCUi AVCphDhzcc0duD7oRx3+ LHNipCL0sMA6hO3hIoEe KxR4ZLcuX974ExVjkOZq QsehK71lQ9PdcNF+ RTFhBnt3FWUxyOemTA6c vNLuHGrgAi5qUTG2VfTq VfUjKZbcV0QaFBPyejwh yjuytFQ9CUFhQVRp aN22Ii4rqUtcQn7jSGXu YIZ3AIAdrFLrL3IymW9t IqRiEEWbEXIgZ8BccOYe VWprC858BIrhXaG3 FMXeraHfE5WlEIYfxAci TiM4z5U7Tn5ZfUmpgWPn UV7yWbYpVGi4G5ZtKvd5 RVOmtAvoAS9vgGEs IMzeMl9knWkegCojHR2f QXWionpuq462DhSyw9ob NIGviIUtXBpcJAT1J01f u4D4KERvNFNmSUX0 mEN1qV3rdWfttxtzcSIi dDsgdmVydGljYWwtYWxp O618EARvxBejBrJBZgs4 X8UpMjc7FCQpuLfl NL3usULsLQmaBk4xuNxp iGmdEQ0fHGOmiamqn629 GrQzs1fsLTQbzBDgLCmj FFR5O30eo1J0BVPb YFPwGGB0pJY7cV9hpKdc bjogbGVmdDsgdmVydGlj FVrnQIkwQ399DCJncIej Fh8JXkl9X5UgGlg5 CWYqoKysNW6bhPAmBRtz Ps9hwSllrZmuMW0oBZAj hoifp027RnJiw6tsMAQs gMWgZNvwQZM5O80v g1I8MNUpOJZsMOI0uEJ8 hN2ytAfqibajdTHatNej fiLboExzADqgGPduC724 IHRvcDsnPlBheWVy OjwvdGQ+CB93qy80O1Zp BpyqFuy8LNTyQLX5iHT3 iE3xYZPeEBsbl6M7gIW6 B4VobmJxwg7br0qy YXBz (more content not included)... Normal [facility] Auto Diffon 06-30-2022 Basophils/100 WBC (Bld) 2.7 % High 0.0-2.0 [facility] Comment on above: Order Comment: Order Added by Discern Expert. Performed By: #### 2 677080, 64717554, 5162396, 2876065, 07964505 #### [facility] [address] [place] [address] Basophils/Leukocytes Auto (Bld) [Pure # fraction] 0.2 E9/L Normal 0.0-0.2 [facility] Comment on above: Order Comment: Order Added by Discern Expert. Performed By: #### 2 453508, 42759386, 5824328, 2795497, 94210462 #### [facility] [address] [place] [address] Eosinophils/100 WBC (Bld) 7.5 % Normal 0.0-8.0 [facility] Comment on above: Order Comment: Order Added by Discern Expert. Performed By: #### 2 140704, 48753954, 6998714, 2823255, 65268323 #### [facility] [address] [place] [address] Eosinophils/Leukocyte s Auto (Bld) [Pure # fraction] 0.5 E9/L Normal 0.0-0.5 [facility] Comment on above: Order Comment: Order Added by Discern Expert. Performed By: #### 2 510548, 26911863, 1555345, 3350283, 42045940 #### [facility] [address] [place] [address] Lymphocytes/100 WBC (Bld) 35.7 % Normal 14.0-50.0 [facility] Comment on above: Order Comment: Order Added by Discern Expert. Performed By: #### 2 481216, 53598902, 1286527, 8609325, 26772079 #### [facility] [address] [place] [address] Lymphocytes/Leukocyte s Auto (Bld) [Pure # fraction] 2.3 E9/L Normal 1.0-4.0 [facility] Comment on above: Order Comment: Order Added by Discern Expert. Performed By: #### 2 242713, 33007485, 2138635, 9755061, 63927815 #### [facility] [address] [place] [address] Monocytes/100 WBC (Bld) 7.0 % Normal 4.0-14.0 [facility] Comment on above: Order Comment: Order Added by Discern Expert. Performed By: #### 2 953730, 10865183, 6865650, 3082183, 95674626 #### [facility] [address] [place] [address] Monocytes/Leukocytes Auto (Bld) [Pure # fraction] 0.5 E9/L Normal 0.2-1.0 [facility] Comment on above: Order Comment: Order Added by Discern Expert. Performed By: #### 2 679257, 81875359, 9658569, 6931053, 77828062 #### [facility] [address] [place] [address] Neutrophils/100 WBC (Bld) 47.1 % Normal 36.0-75.0 [facility] Comment on above: Order Comment: Order Added by Discern Expert. Performed By: #### 2 784475, 49175297, 9195868, 8297688, 82509651 #### [facility] [address] [place] [address] Neutrophils/Leukocyte s Auto (Bld) [Pure # fraction] 3.1 E9/L Normal 2.0-7.5 [facility] Comment on above: Order Comment: Order Added by Discern Expert. Performed By: #### 2 962145, 56866515, 1256999, 6899603, 57268027 #### [facility] [address] [place] [address] BMPon 06-30-2022 Anion gap [Moles/Vol] 13 mmol/L Normal 6-16 [facility] Comment on above: Performed By: #### 2 103456, 44875058, 5055459, 5230983, 48333070 #### [facility] [address] [place] [address] Calcium [Mass/Vol] 9.4 mg/dL Normal 8.9-11.1 [facility] Comment on above: Performed By: #### 2 930104, 49752775, 9114662, 4492489, 47355626 #### [facility] [address] [place] [address] Chloride [Moles/Vol] 99 mmol/L Low 101-111 [facility] Comment on above: Performed By: #### 2 960297, 06356254, 2950588, 3787585, 38047833 #### [facility] [address] [place] [address] CO2 [Moles/Vol] 25 mmol/L Normal 21-31 [facility] Comment on above: Performed By: #### 2 431550, 63666850, 1764823, 9523295, 70765815 #### [facility] [address] [place] [address] Creatinine [Mass/Vol] 1.0 mg/dL Normal 0.5-1.3 [facility] Comment on above: Performed By: #### 2 279799, 95897750, 5098657, 9736710, 92164608 #### [facility] [address] [place] [address] Glucose [Mass/Vol] 241 mg/dL High 55-199 [facility] Comment on above: Result Comment: If t his glucose result represents a fasting glucose, interpretation should refer to the following reference range: 55-99 mg/dL Performed By: #### 2 299888, 92316176, 3041979, 3685421, 39149077 #### [facility] [address] [place] [address] Potassium [Moles/Vol] 3.7 mmol/L Normal 3.5-5.3 [facility] Comment on above: Performed By: #### 2 668402, 08423890, 1444803, 4909747, 38254542 #### [facility] [address] [place] [address] Sodium [Moles/Vol] 133 mmol/L Low 135-145 [facility] Comment on above: Performed By: #### 2 421062, 34472999, 0151072, 8756378, 14011242 #### [facility] [address] [place] [address] Urea nitrogen [Mass/Vol] 12 mg/dL Normal 5-21 [facility] Comment on above: Performed By: #### 2 568838, 87677971, 1595488, 8289447, 55377388 #### [facility] [address] [place] [address] Urea nitrogen/Creatinine [Mass ratio] 12 No Units Normal 10-20 [facility] Comment on above: Performed By: #### 2 465819, 35660200, 6901863, 7459285, 56714318 #### [facility] [address] [place] [address] CBC w/ Auto Diffon Erythrocyte distribution width (RBC) [Ratio] 14.0 % Normal 10.9-14.2 [facility] Comment on above: Performed By: #### 2 886515, 29439722, 4479270, 6866775, 74367036 #### [facility] [address] [place] [address] Hematocrit (Bld) [Volume fraction] 40.8 % Normal 37.7-49.0 [facility] Comment on above: Performed By: #### 2 419988, 00650359, 3031174, 2963979, 22463213 #### [facility] [address] [place] [address] Hemoglobin (Bld) [Mass/Vol] 13.9 g/dL Normal 13.5-17.5 [facility] Comment on above: Performed By: #### 2 488609, 34799768, 7588282, 1053991, 47145875 #### [facility] [address] [place] [address] MCH (RBC) [Entitic mass] 27.9 pg Normal 27.0-34.0 [facility] Comment on above: Performed By: #### 2 833452, 64260128, 4238685, 1064377, 18405373 #### [facility] [address] [place] [address] MCHC (RBC) [Mass/Vol] 34.1 g/dL Normal 31.4-36.0 [facility] Comment on above: Performed By: #### 2 300418, 38146494, 4075958, 7944495, 44136083 #### [facility] [address] [place] [address] MCV (RBC) [Entitic vol] 81.8 fL Normal 80.0-100.0 [facility] Comment on above: Performed By: #### 2 568748, 10705295, 5208624, 9407117, 46117417 #### [facility] [address] [place] [address] Platelet mean volume (Bld) [Entitic vol] 8.3 fL Normal 6.4-10.8 [facility] Comment on above: Performed By: #### 2 349583, 98692092, 2393868, 6911642, 53897851 #### [facility] [address] [place] [address] Platelets (Bld) [#/Vol] 191.0 E9/L Normal 150.0-500.0 [facility] Comment on above: Performed By: #### 2 053174, 57741807, 2844872, 7870570, 52050705 #### [facility] [address] [place] [address] RBC (Bld) [#/Vol] 5.0 E12/L Normal 4.3-5.9 [facility] Comment on above: Performed By: #### 2 225366, 07022676, 8600840, 7559050, 75268849 #### [facility] [address] [place] [address] WBC corrected for nucl RBC Auto (Bld) [#/Vol] 6.5 E9/L Normal 4.0-11.0 [facility] Comment on above: Performed By: #### 2 248603, 74596962, 8364019, 3614411, 22689725 #### [facility] [address] [place] [address] CHEMISTRYOrdered By: SYSTEM SYSTEM on 06-30-2022 Anion gap [Moles/Vol] 13 mmol/L Normal 6 - 16 mEq/L [facility] Remisol Calcium [Mass/Vol] 9.4 [...] rate/Area] mL/min/1.73 m2 Normal >=59mL/min/1.7 3 m2 [facility] Chem S GFR/1.73 sq M.predicted among non-blacks MDRD (S/P/Bld) [Vol rate/Area] mL/min/1.73 m2 Normal >=59mL/min/1.7 3 m2 [facility] Chem S Glucose [Mass/Vol] 241 mg/dL High 55 - 199 mg/dL [facility] Remisol Potassium [Moles/Vol] 3.7 mmol/L Normal 3.5 - 5.3 mmol/L [facility]isol Sodium [Moles/Vol] 133 mmol/L Low 135 - 145 mmol/L [facility] Remisol Urea nitrogen [Mass/Vol] 12 mg/dL Normal 5 - 21 mg/dL [facility] Remisol Urea nitrogen/Creatinine [Mass ratio] 12 mg/mg [...] Consent for Treatmenton Consent for Treatment [id number] #1.00CD:127 Normal [facility] Consent for Treatment [id number] 11 [id number]#1.00CD:127 Normal [facility] HEMATOLOGYOrdered By: SYSTEM SYSTEM on 06-30-2022 [...] Coag (PPP) [Time] 33.6 second(s) Normal 25.1-36.5 [facility] Comment on above: Result Comment: Para meter 15 days - 4 weeks 1 - 5 months 6 - 11 months 1 - 5 years 6 - 10 years 11 - 17 years PTT Mean: 35.4 (27.6-45.6) Mean: 33.5 (24.8-40.7) Mean: 32.4 (25.1-40.7) Mean: 31.6 (24.0-39.2) Mean: 31.6 (26.9-38.7) Mean: 31.0 (24.6-38.4) Pediatric Reference ranges were obtained from a study by liborio Narvaez prepared from 1437 samples obtained at 7 different centers using the same coagulation reagent and instrumentation as [facility]. Currently there are no coagulation studies available worldwide for children to 14 days, and no normal ranges. Heparin therapeutic range (represented by Anti-Factor Xa activity of 0.2 - 0.4 U/mL) corresponds to PTT of 56.6 - 109.0 sec. Performed By: #### 2 769182, 99555918, 1821397, 6341143, 98491160 #### [facility] [address] [place] [address] INR Coag (PPP) [Relative time] 1.1 {INR} Invalid Interpretation Code [facility] Comment on above: Result Comment: INR results are specifically intended to assess patients stabilized on long-term Anticoagulation therapy suggested INR?s ?Less Intensive Anticoagulation? 2.0 ? 3.0 Conventional Range 3.0 ? 4.5 Performed By: #### 2 059905, 82925203, 0651227, 6166646, 06355067 #### [facility] [address] [place] [address] PT Coag (PPP) [Time] 11.8 second(s) Normal 9.4-12.5 [facility] Comment on above: Result Comment: 15 [...] ranges were obtained from a study by liborio Narvaez prepared from 1437 samples obtained at 7 different centers using the same coagulation reagent and instrumentation as [facility]. Currently there are no coagulation studies available worldwide for children to 14 days, and no normal ranges. Performed By: #### 2 348689, 23594597, 0331504, 3813448, 72629714 #### [facility] [address] [place] [address] UA With Cult Reflexon 2021 Bilirubin Ql (U) Negative Normal Negative [facility] Comment on above: Performed By: #### 1 9233170 ####[facility] [address] [place] [address] Clarity (U) CLEAR Normal Clear [facility] Comment on above: Performed By: #### 1 0763262 ####[address] [address] Color (U) YELLOW Normal Yellow [facility] Comment on above: Performed By: #### 1 6972270 ####[address] [address] Epithelial cells.squamous LM.HPF (Urine sed) [#/Area] 0-2 Normal 0-2 [facility] Comment on above: Performed By: #### 1 9241367 ####[facility] [address] [place] [address] Glucose Test strip (U) [Mass/Vol] 1+ Abnormal Negative [facility] Comment on above: Performed By: #### 1 2169752 ####[facility] [address] [place] [address] Hemoglobin Ql (U) TRACE Abnormal Negative [facility] Comment on above: Performed By: #### 1 8848109 ####[facility] [address] [place] [address] Ketones (U) [Mass/Vol] Negative Normal Negative [facility] Comment on above: Performed By: #### 1 5900062 ####[facility] [address] [place] [address] Valliant.plasma/Lithiu m.RBC (Bld) [Mass ratio] 4-20 Normal 0-3 [facility] Comment on above: Performed By: #### 1 2937707 ####[address] [address] Nitrite Ql (U) Negative Normal Negative [facility] Comment on above: Performed By: #### 1 6824592 ####[address] [address] pH (U) 5.5 [pH] Invalid Interpretation Code 5.0-9.0 [facility] Comment on above: Performed By: #### 1 0653999 ####[address] [address] Protein (U) [Mass/Vol] Negative Normal Negative [facility] Comment on above: Performed By: #### 1 2284551 ####[address] [address] Specific gravity (U) [Rel density] 1.025 Invalid Interpretation Code 1.005-1.030 [facility] Comment on above: Performed By: #### 1 5940585 ####[address] [address] Type of Urine collection method Clean Catch Normal [facility] Comment on above: Performed By: #### 1 7651045 ####[address] [address] Urobilinogen Qn (U) 0.2 {Shaka'U}/dL Normal 0.0-1.0 [facility] Comment on above: Performed By: #### 1 6153067 ####[address] [address] WBC Auto Ql (U) Negative Normal Negative [facility] Comment on above: Performed By: #### 1 6988271 ####[address] [address] WBC LM.HPF (Urine sed) [#/Area] 0-5 Normal 0-5 [facility] Comment on above: Performed By: #### 1 6169060 ####[address] [place] [address] URINALYSISOrdered By: Duglas Khalil on 06-30-2022 Bilirubin [...] PM) Normal Negative [facility] UA Auto SS Valliant.plasma/Lithiu m.RBC (Bld) [Mass ratio] 4-20 /HPF Normal [...] [facility] UA Auto SS Urobilinogen Qn (U) 0.0865792 {Shaka'U}/dL Normal 0.0 - 1.0 EU/dL [facility] [...] V. Transcribed by: LISANDRO Technologist: VINNY [facility] eGFRon 06-30-2022 GFR/1.73 sq M.predicted among blacks MDRD (S/P/Bld) [Vol rate/Area] mL/min/{1.73_m2} Normal >=59 [facility] Comment on above: Order Comment: Order added by Discern Expert. Result Comment: eGFR is race adjusted. AA=. Performed By: #### 2 171697, 18569578, 1019340, 7292420, 83267890 ####[facility] [address] [place] [address] GFR/1.73 sq M.predicted among non-blacks MDRD (S/P/Bld) [Vol rate/Area] mL/min/{1.73_m2} Normal >=59 [facility] Comment on above: Order Comment: Order added by Discern Expert. Result Comment: English Language Arts Teacher anderson kidney disease could be indicated at eGFR's of less than 60 mL/min/1.73m2. Kidney failure is indicated at less than 15 mL/min/1.73m2. Performed By: #### 2 611802, 24516508, 3356428, 3908983, 19364084 ####[facility] [address] [place] [address] COVID-19 ([facility])on 06-29-2022 Performing Instrument Willie 2 Normal [facility] Comment on above: Performed By: #### 2 [id number] ####[address] [place] [address] SARS-CoV-2 (COVID-19) RNA NISHANT+probe Ql (Resp) Not detected Normal Not Detected [facility] Comment on above: Result Comment: This test result should be correlated with clinical presentations and medical history by a healthcare provider to determine its clinical significance. This assay was performed by a reverse transcriptase real-time polymerase chain reaction (rt PCR) method on the [employer] system. This test has been authorized only [...] or revoked sooner. Performed By: #### 2 [id number] ####[address] [address] SARS-CoV-2 (COVID-19) RNA NISHANT+probe Ql (Unsp spec) Pass Normal Pass [facility] Comment on above: Performed By: #### 2 [id number] ####[address] [address] Specimen source Nom (Unsp spec) Nasal Normal [facility] Comment on above: Performed By: #### 2 [id number] ####[address] [address] Facesheeton 06-29-2022 Facesheet [id number] #1.00CD:127 Normal [facility] COVID-19 ([facility])on 06-28-2022 ADMITTED TO INTENSIVE CARE UNIT FOR CONDITION OF INTEREST:FIND:PT: NO Normal [facility] Comment on above: Performed By: #### 2 [id number] ####[place] [address] EMPLOYED IN A HEALTHCARE SETTING:FIND:PT: Unknown Normal [facility] Comment on above: Performed By: #### 2 [id number] ####[place] [address] FIRST TEST FOR CONDITION OF INTEREST:FIND:PT: Unknown Normal [facility] Comment on above: Performed By: #### 2 [id number] ####[place] [address] HAS SYMPTOMS RELATED TO CONDITION OF INTEREST:FIND:PT: Unknown Normal [facility] Comment on above: Performed By: #### 2 [id number] ####[place] [address] HOSPITALIZED FOR CONDITION OF INTEREST:FIND:PT: NO Normal [facility] Comment on above: Performed By: #### 2 [id number] ####[place] [address] STATUS:FIND:PT: NO Normal [facility] Comment on above: Performed By: #### 2 [id number] ####[place] [address] RESIDES IN A [facility] CARE SETTING:FIND:PT: Unknown Normal [facility] Comment on above: Performed By: #### 2 [id number] ####[place] [address] Consent for Procedure/Surger yon 06-28-2022 Consent for Procedure/Surgery [id number] #1.00CD:127 Normal [facility] RAD - MISCon 06-24-2022 RAD - MISC [id number] #1.00CD:127 Normal [facility] XR ABD FLAT_UPon 06-15-2022 XR ABD [...] SUELLEN MAYO Date: 2022-06-15 17:03 Normal [facility] CBC AUTO DIFFon 06-07-2022 BASO # 0.1 103/ul Normal 0.0-0.1 [facility] Comment on above: Performed By: #### P TT, PT #### [facility] [address] [place] [address] Dr. Marcell Luque Basophils/100 WBC (Bld) 0.6 % Normal 0.2-2.0 [facility] Comment on above: Performed By: #### P TT, PT #### [facility] [address] [address] [address] Marcell Luque EO # 0.3 103/ul Normal 0.0-0.7 [facility] Comment on above: Performed By: #### P TT, PT #### [facility] [address] [place] [address] Dr. Marcell Luque Eosinophils/100 WBC (Bld) 3.3 % Normal 0.9-7.0 [facility] Comment on above: Performed By: #### P TT, PT #### [facility] [address] [address] [address] Marcell Luque Erythrocyte distribution width (RBC) [Ratio] 13.9 % Normal 11.0-15.0 [facility] Comment on above: Performed By: #### P TT, PT #### [facility] [address] [place] [address] Dr. Marcell Luque Hematocrit (Bld) [Volume fraction] 39.3 % Critically low 42.0-54.0 [facility] Comment on above: Performed By: #### P TT, PT #### [facility] [address] [place] [address] Dr. Marcell Luque Hemoglobin (Bld) [Mass/Vol] 12.6 g/dL Critically low 14.0-18.0 [facility] Comment on above: Performed By: #### P TT, PT #### [facility] [address] [place] [address] Dr. Marcell Luque IG # 0.02 10e3/ul Normal 0.00-0.03 [facility] Comment on above: Performed By: #### P TT, PT #### [facility] [address] [place] [address] Dr. Marcell Luque IG % 0.2 % Normal 0.0-0.5 [facility] Comment on above: Performed By: #### P TT, PT #### [facility] [address] [place] [address] Dr. Marcell Luque LYMPH # 2.4 103/ul Normal 1.2-3.8 [facility] Comment on above: Performed By: #### P TT, PT #### [facility] [address] [place] [address] Dr. Marcell Luque Lymphocytes/100 WBC (Bld) 29.6 % Normal 20.5-60.0 [facility] Comment on above: Performed By: #### P TT, PT #### [facility] [address] [place] [address] Dr. Marcell Luque MANUAL DIFF REQ NO Normal [facility] Comment on above: Performed By: #### P TT, PT #### [facility] [address] [place] [address] Dr. Marcell Luque MCH (RBC) [Entitic mass] 27.9 pg Normal 25.9-34.0 [facility] Comment on above: Performed By: #### P TT, PT #### [facility] [address] [place] [address] Dr. Marcell Luque MCHC (RBC) [Mass/Vol] 32.1 g/dL Normal 29.9-35.2 [facility] Comment on above: Performed By: #### P TT, PT #### [facility] [address] [place] [address] Dr. Marcell Luque MCV (RBC) [Entitic vol] 87.1 fL Normal 80.0-94.0 [facility] Comment on above: Performed By: #### P TT, PT #### [facility] [address] [place] [address] Dr. Marcell Luque MONO # 0.9 103/ul Critically high 0.3-0.8 The [facility] Comment on above: Performed By: #### P TT, PT #### [facility] [address] [place] [address] Dr. Marcell Luque Monocytes/100 WBC (Bld) 10.7 % Normal 1.7-12.0 [facility] Comment on above: Performed By: #### P TT, PT #### [facility] [address] [place] [address] Dr. Marcell Luque NEUT # 4.5 103/ul Normal 1.4-6.5 [facility] Comment on above: Performed By: #### P TT, PT #### [facility] [address] [place] [address] Dr. Marcell Luque Neutrophils/100 WBC (Bld) 55.6 % Normal 43.0-75.0 [facility] Comment on above: Performed By: #### P TT, PT #### [facility] [address] [place] [address] Dr. Marcell Luque Platelet mean volume (Bld) [Entitic vol] 10.7 fL Normal 9.5-13.5 [facility] Comment on above: Performed By: #### P TT, PT #### [facility] [address] [place] [address] Dr. Marcell Luque PLT 155 103/ul Normal 150-450 [facility] Comment on above: Performed By: #### P TT, PT #### [facility] [address] [place] [address] Dr. Marcell Luque RBC 4.51 106/ul Critically low 4.70-6.10 The [facility] Comment on above: Performed By: #### P TT, PT #### [facility] [address] [place] [address] Dr. Marcell Luque WBC 8.1 103/ul Normal 4.0-11.0 [facility] Comment on above: Performed By: #### P TT, PT #### [facility] [address] [place] [address] Dr. Marcell Luque [facility]22 SARS-CoV-2 (COVID-19) RNA NISHANT+probe Ql (Unsp spec) Not detected Normal NOT DETECTED [facility] Comment on above: Result Comment: When [...] for this test is supported by the Ticker Maintainer of Health and Human Service's declaration that [...] Performed By: #### P TT, PT #### [facility] [address] [place] [address] Dr. Marcell Luque LACTATE/LACTIC ACIDon 2021 Lactate [Moles/Vol] 1.4 mmol/L Normal 0.4-1.9 [facility] Comment on above: Performed By: #### L ACT #### [facility] [address] [place] [address] Dr. Marcell Luque PROF CHEM 8 (BAS METB)on Anion gap [Moles/Vol] 8.7 mmol/L Normal [facility] Comment on above: Performed By: #### B MP #### [facility] [address] [place] [address] Dr. Marcell Luque Calcium [Mass/Vol] 8.7 mg/dL Normal 8.5-10.1 The [facility] Comment on above: Performed By: #### B MP #### [facility] [address] [address] [address] Marcell Luque Chloride [Moles/Vol] 101 mmol/L Normal 98-107 [facility] Comment on above: Performed By: #### B MP #### [facility] [address] [address] [address] Marcell Luque CO2 [Moles/Vol] 29.8 mmol/L Normal 21.0-32.0 [facility] Comment on above: Performed By: #### B MP #### [facility] [address] [place] [address] Dr. Marcell Luque Creatinine [Mass/Vol] 1.12 mg/dL Normal 0.70-1.30 [facility] Comment on above: Performed By: #### B MP #### [facility] [address] [address] [address] Marcell Luque EGFR-AF RUSSIAN >60 Normal >=60 [facility] Comment on above: Performed By: #### B MP #### [facility] [address] [place] [address] Dr. Marcell Luque EGFR-NON AF RUSSIAN >60 Normal >=60 [facility] Comment on above: Performed By: #### B MP #### [facility] [address] [address] [address] Marcell Luque Glucose [Mass/Vol] 173 mg/dL Critically high 74-106 [facility] Comment on above: Performed By: #### B MP #### [facility] [address] [address] [address] Marcell Luque Potassium [Moles/Vol] 3.5 mmol/L Normal 3.5-5.1 [facility] Comment on above: Performed By: #### B MP #### [facility] [address] [place] [address] Dr. Marcell Luque Sodium [Moles/Vol] 136 mmol/L Normal 136-145 The [facility] Comment on above: Performed By: #### B MP #### [facility] [address] [place], [place] [address] Dr. Marcell Luque Urea nitrogen [Mass/Vol] 18.0 mg/dL Normal 7.0-18.0 [facility] Comment on above: Performed By: #### B MP #### [facility] [address] [place], [place] [address] Dr. Marcell Luque Urea nitrogen/Creatinine [Mass ratio] 16.1 mg/mg Normal [facility] Comment on above: Performed By: #### B MP #### [facility] [address] [address] [address] Marcell Luque TROPONIN, HIGH SENSITIVITYon 06-07-2022 HSTROP 84.7 pg/mL Critically high 4.0-76.1 [facility] Comment on above: Result Comment: CUT- OFF POINTS HAVE BEEN ESTABLISHED BASED ON THE FOURTH UNIVERSAL DEFINITIONS OF MYOCARDIAL INFARCTION. THE UPPER REFERENCE LIMIT (URL) OF TROPONIN, DEFINED THE 99TH PERCENTILE OF cTnI DISTRIBUTION IN A REFERENCE POPULATION, HAS BEEN CONFIRMED THE DECISION THRESHOLD FOR [place] DIAGNOSIS. Performed By: #### P TT, PT #### [facility] [address] [address] [address] Marcell Luque XR CHEST 1 Von [...] by: VALERIE ERWIN Date: 2022-06-06 22:17 Normal [facility] AMMONIAon 06-06-2022 Ammonia (P) [Moles/Vol] 13 umol/L Normal 11-32 [facility] Comment on above: Performed By: #### A MM #### [facility] [address] [place] [address] Dr. Marcell Luque CBC AUTO DIFFon 06-06-2022 BASO # 0.1 103/ul Normal 0.0-0.1 [facility] Comment on above: Performed By: #### P TT, PT #### [facility] [address] [place] [address] Dr. Marcell Luque Basophils/100 WBC (Bld) 0.7 % Normal 0.2-2.0 [facility] Comment on above: Performed By: #### P TT, PT #### [facility] [address] [place] [address] Dr. Marcell Luque EO # 0.3 103/ul Normal 0.0-0.7 [facility] Comment on above: Performed By: #### P TT, PT #### [facility] [address] [place] [address] Dr. Marcell Luque Eosinophils/100 WBC (Bld) 4.0 % Normal 0.9-7.0 [facility] Comment on above: Performed By: #### P TT, PT #### [facility] [address] [place] [address] Dr. Marcell Luque Erythrocyte distribution width (RBC) [Ratio] 13.8 % Normal 11.0-15.0 [facility] Comment on above: Performed By: #### P TT, PT #### [facility] [address] [place] [address] Dr. Marcell Luque Hematocrit (Bld) [Volume fraction] 44.4 % Normal 42.0-54.0 [facility] Comment on above: Performed By: #### P TT, PT #### [facility] [address] [place] [address] Dr. Marcell Luque Hemoglobin (Bld) [Mass/Vol] 14.4 g/dL Normal 14.0-18.0 [facility] Comment on above: Performed By: #### P TT, PT #### [facility] [address] [place] [address] Dr. Marcell Luque IG # 0.02 10e3/ul Normal 0.00-0.03 [facility] Comment on above: Performed By: #### P TT, PT #### [facility] [address] [address] [address] Marcell Luque IG % 0.2 % Normal 0.0-0.5 [facility] Comment on above: Performed By: #### P TT, PT #### [facility] [address] [address] [address] Marcell Luque LYMPH # 2.9 103/ul Normal 1.2-3.8 [facility] Comment on above: Performed By: #### P TT, PT #### [facility] [address] [address] [address] Marcell Luque Lymphocytes/100 WBC (Bld) 35.4 % Normal 20.5-60.0 [facility] Comment on above: Performed By: #### P TT, PT #### [facility] [address] [address] [address] Marcell Luque MANUAL DIFF REQ NO Normal [facility] Comment on above: Performed By: #### P TT, PT #### [facility] [address] [address] [address] Marcell Luque MCH (RBC) [Entitic mass] 28.1 pg Normal 25.9-34.0 [facility] Comment on above: Performed By: #### P TT, PT #### [facility] [address] [address] [address] Marcell Luque MCHC (RBC) [Mass/Vol] 32.4 g/dL Normal 29.9-35.2 [facility] Comment on above: Performed By: #### P TT, PT #### [facility] [address] [address] [address] Marcell Luque MCV (RBC) [Entitic vol] 86.7 fL Normal 80.0-94.0 [facility] Comment on above: Performed By: #### P TT, PT #### [facility] [address] [address] [address] Marcell Luque MONO # 0.7 103/ul Normal 0.3-0.8 [facility] Comment on above: Performed By: #### P TT, PT #### [facility] [address] [place] [address] Dr. Marcell Luque Monocytes/100 WBC (Bld) 8.2 % Normal 1.7-12.0 [facility] Comment on above: Performed By: #### P TT, PT #### [facility] [address] [place] [address] Dr. Marcell Luque NEUT # 4.2 103/ul Normal 1.4-6.5 [facility] Comment on above: Performed By: #### P TT, PT #### [facility] [address] [place] [address] Dr. Marcell Luque Neutrophils/100 WBC (Bld) 51.5 % Normal 43.0-75.0 [facility] Comment on above: Performed By: #### P TT, PT #### [facility] [address] [place] [address] Dr. Marcell Luque Platelet mean volume (Bld) [Entitic vol] 11.0 fL Normal 9.5-13.5 [facility] Comment on above: Performed By: #### P TT, PT #### [facility] [address] [place] [address] Dr. Marcell Luque PLT 183 103/ul Normal 150-450 [facility] Comment on above: Performed By: #### P TT, PT #### [facility] [address] [place] [address] Dr. Marcell Luque RBC 5.12 106/ul Normal 4.70-6.10 [facility] Comment on above: Performed By: #### P TT, PT #### [facility] [address] [place] [address] Dr. Marcell Luque WBC 8.2 103/ul Normal 4.0-11.0 [facility] Comment on above: Performed By: #### P TT, PT #### [facility] [address] [place] [address] HEAD WO CONon [...] mass effect consistent with small vessel ischemia. VENTRICLES/EXTRA-AXI AL SPACES: Widened, consistent with atrophy. SINUSES/MASTOIDS: Mucoperiosteal [...] CURTIS WILSON Date: 2022-06-06 21:56 Normal [facility] CULTURE BLOODon 06-06-2022 Microscopic examination of blood, culture Culture Observations: NO GROWTH AT 5 DAYS. Normal [facility] Comment on above: Performed By: #### P TT, PT #### [facility] [address] [place] [address] Dr. Marcell Luque Microscopic examination of blood, culture Culture Observations: NO GROWTH AT 5 DAYS. Normal [facility] Comment on above: Performed By: #### P TT, PT #### [facility] [address] [place] [address] Dr. Marcell Luque ETHANOL (BLD ALC)on 06-06-20 22 ALC NOTE NOTE: 80 mg/dl is the legal limit for a blood alcohol level Normal [facility] Comment on above: Performed By: #### P TT, PT #### [facility] [address] [place] [address] Dr. Marcell Luque Ethanol [Mass/Vol] mg/dL Normal [facility] Comment on above: Performed By: #### P TT, PT #### [facility] [address] [place] [address] Dr. Marcell Luque LACTATE/LACTIC ACIDon 2021 Lactate [Moles/Vol] 2.9 mmol/L Critically high 0.4-1.9 [facility] Comment on above: Performed By: #### P TT, PT #### [facility] [address] [place] [address] Dr. Marcell Luque PROF 14(COMP METB)on 022 Albumin [Mass/Vol] 4.3 g/dL Normal 3.4-5.0 [facility] Comment on above: Performed By: #### P TT, PT #### [facility] [address] [place] [address] Dr. Marcell Luque Albumin/Globulin [Mass ratio] 1.1 {ratio} Normal [facility] Comment on above: Performed By: #### P TT, PT #### [facility] [address] [place] [address] Dr. Marcell Luque ALP [Catalytic activity/Vol] 91 U/L Normal 46-116 [facility] Comment on above: Performed By: #### P TT, PT #### [facility] [address] [place] [address] Dr. Marcell Luque ALT [Catalytic activity/Vol] 35 U/L Normal 16-63 [facility] Comment on above: Performed By: #### P TT, PT #### [facility] [address] [address] [address] Marcell Luque Anion gap [Moles/Vol] 11.7 mmol/L Normal [facility] Comment on above: Performed By: #### P TT, PT #### [facility] [address] [address] [address] Marcell Luque AST [Catalytic activity/Vol] 15 U/L Normal 15-37 [facility] Comment on above: Performed By: #### P TT, PT #### [facility] [address] [place] [address] Dr. Marcell Luque Bilirubin [Mass/Vol] 0.4 mg/dL Normal 0.2-1.0 [facility] Comment on above: Performed By: #### P TT, PT #### [facility] [address] [place] [address] Dr. Marcell Luque Calcium [Mass/Vol] 9.8 mg/dL Normal 8.5-10.1 [facility] Comment on above: Performed By: #### P TT, PT #### [facility] [address] [address] [address] Marcell Luque Chloride [Moles/Vol] 97 mmol/L Critically low 98-107 [facility] Comment on above: Performed By: #### P TT, PT #### [facility] [address] [place] [address] Dr. Marcell Luque CO2 [Moles/Vol] 30.8 mmol/L Normal 21.0-32.0 [facility] Comment on above: Performed By: #### P TT, PT #### [facility] [address] [place] [address] Dr. Marcell Luque Creatinine [Mass/Vol] 1.45 mg/dL Critically high 0.70-1.30 [facility] Comment on above: Performed By: #### P TT, PT #### [facility] [address] [place] [address] Dr. Marcell Luque EGFR-AF RUSSIAN 59 mL/min/1.73m2 Critically low >=60 [facility] Comment on above: Performed By: #### P TT, PT #### [facility] [address] [address] [address] Marcell Luque EGFR-NON AF RUSSIAN 49 mL/min/1.73m2 Critically low >=60 [facility] Comment on above: Performed By: #### P TT, PT #### [facility] [address] [address] [address] Marcell Luque Globulin (S) [Mass/Vol] 3.9 g/dL Normal [facility] Comment on above: Performed By: #### P TT, PT #### [facility] [address] [address] [address] Marcell Luque Glucose [Mass/Vol] 204 mg/dL Critically high 74-106 [facility] Comment on above: Performed By: #### P TT, PT #### [facility] [address] [address] [address] Marcell Luque Potassium [Moles/Vol] 3.5 mmol/L Normal 3.5-5.1 [facility] Comment on above: Performed By: #### P TT, PT #### [facility] [address] [address] [address] Marcell Luque Protein [Mass/Vol] 8.2 g/dL Normal 6.4-8.2 [facility] Comment on above: Performed By: #### P TT, PT #### [facility] [address] [address] [address] Marcell Luque Sodium [Moles/Vol] 136 mmol/L Normal 136-145 [facility] Comment on above: Performed By: #### P TT, PT #### [facility] [address] [address] [address] Marcell Luque Urea nitrogen [Mass/Vol] 20.0 mg/dL Critically high 7.0-18.0 [facility] Comment on above: Performed By: #### P TT, PT #### [facility] [address] [address] [address] Marcell Luque Urea nitrogen/Creatinine [Mass ratio] 13.8 mg/mg Normal [facility] Comment on above: Performed By: #### P TT, PT #### [facility] [address] [place] [address] Dr. Marcell Luque PROTIMEon 06-06-2022 INR Coag (PPP) [Relative time] 1.02 {INR} Normal [facility] Comment on above: Performed By: #### P TT, PT #### [facility] [address] [place] [address] Dr. Marcell Luque INR GUIDELINES SEE BELOW Normal [facility] Comment on above: Result Comment: DANICA RED INR: 2.0 - 3.0 CONDITIONS NOT LISTED BELOW 2.5 - 3.5 FOR PROSTHETIC HEART VALVE REPLACEMENT 2.5 - 3.5 RECURRENT THROMBOSIS Performed By: #### P TT, PT #### [facility] [address] [place] [address] Dr. Marcell Luque PT Coag (PPP) [Time] 11.0 s Normal 9.0-11.6 [facility] Comment on above: Performed By: #### P TT, PT #### [facility] [address] [place] [address] Dr. Marcell Luque PTTon 06-06-2022 aPTT Coag (Bld) [Time] 25.9 s Normal 22.3-36.2 [facility] Comment on above: Performed By: #### P TT, PT #### [facility] [address] [place] [address] Dr. Marcell Luque TROPONIN, HIGH SENSITIVITYon 06-06-2022 HSTROP 92.4 pg/mL Critically high 4.0-76.1 [facility] Comment on above: Result Comment: CUT- OFF POINTS HAVE BEEN ESTABLISHED BASED ON THE FOURTH UNIVERSAL DEFINITIONS OF MYOCARDIAL INFARCTION. THE UPPER REFERENCE LIMIT (URL) OF TROPONIN, DEFINED THE 99TH PERCENTILE OF cTnI DISTRIBUTION IN A REFERENCE POPULATION, HAS BEEN CONFIRMED THE DECISION THRESHOLD FOR [place] DIAGNOSIS. Performed By: #### P TT, PT #### [facility] [address] [place] [address] Dr. Marcell Luque Physician Referralon 022 Physician Referral [id number] #1.00CD:127 [facility] Ambulatory Visit Summaryon 1 Ambulatory Visit Summary EUNICE MARTE :1955 Visit Date:06/02/2022 Ambulatory Visit Instructions Your Diagnosis Elevated PSA BPH with urinary obstruction Erectile dysfunction Tests Performed Urnls Dip Stick Auto w/o Microscopy POC 34353 Your Care Team Attending Physician - Dewey [...] D3)) glipiZIDE (glipiZIDE 10 mg ER Tab) hydrochlorothiazide- lisinopril (hydrochlorothiazide -lisinopril 12.5 mg-20 mg Tab) insulin lispro-insulin lispro [...] Asim Singleton Where: [facility] Patient Educationon 06-02-20 22 Patient Education Urology [...] these instructions at home: Medicines ? Take uwhp-peq-cmiyakf and prescription medicines only as told by [...] of your (more content not included)... [facility] Provider Letteron 06-02-2022 Provider Letter June 02, 2022 EUNICE MARTE [address] [place] [address] EUNICE MARTE 1955 To Whom It May Concern, Please excuse above patient from work. Date of Appointment: From: 06/02/2022 To: 06/02/2022 May Return to Work On:06/02/2022 Restrictions: none Comments: Shayy was with her Eunice for his appointment at our office today, any questions please call our office Sincerely, [facility] [address], [place] [address] [facility] RAD - MRI Reporton RAD - MRI Report [id number] #1.00CD:127 [facility] Urology Office/Clinic Noteon 06-02-2022 Urology Office/Clinic Note Chief Complaint Patient in office for f/u to MRI of the prostate HPI Staff Patient in office for f/u to MRI of the [place] [facility] [place] shows a focal area of T2 [...] Information Dewey COTTO, Milvia Lucia, URL, [facility] [address], [place] [address]- [phone] Additional Instructions: Patient Education Erectile Dysfunction I, Paty Maher , personally scribed for Dr. Palomo on 06/02/2022 10:05:22. . Documentation recorded by the mendel, Paty Maher, accurately reflects the services(s) I [...] Daily Humalog Mix 50/50 KwikPen, SubCutaneous, BIDAC hydrochlorothiazide- lisinopril 12.5 mg-20 mg Tab, Oral, Daily metformin 500 mg ER Tab, Oral, Daily montelukast 10 mg Tab, Oral, Daily Myrbetriq 50 mg oral tablet, extended release, 50 mg= 1 tab(s), Oral, Daily, 6 refi (more content not included)... [facility] Comment on above: Result Comment: Elec tronically Signed By: Milvia Palomo MD\.br\Date and Time Signed: 06/02/22 12:00 EDT\.br\Electronically Co-Signed By: Paty Maher MA\.br\Date and Time Co-Signed: 06/02/22 10:08 EDT Creatinine (Bld) [Mass/Vol]O rdered By: Milvia Palomo on 05-26-2022 Creatinine [Mass/Vol] 0.8 mg/dL 0.6-1.3 [facility] Comment on above: ER/ESD physician is notified/shown all ISTAT results.Critical values may be confirmed by laboratory testing ifdeemed necessary by ER attending doctor. No Panel InformationOrdered By: Milvia Palomo on 05-26-2022 POC Estimated GFR > 60 [facility] Comment on above: GFR estimated refere nce range: According to KDOQI guidelines, <60 ml/min/1.73m2 is sufficient to diagnose a patient with chronic kidney disease. POC Estimated GFR Non- Amer > 60 [facility] Screenson 04-29-2022 Screens [id number] 7#1.00CD:127 [facility] Screens [id number] #1.00CD:127 [facility] Patient Educationon 04-21-20 Patient Education Oncology [...] of these risk factors: ? Being of -Faroese descent. ? Having a family history of [...] Are older than age 55. ? Are -Faroese. ? Have a father, brother, or uncle [...] 05/19/2018 Document R (more content not included)... [facility] Provider Letteron 04-21-2022 Provider Letter April 21, 2022 EUNICE [address] [place] [address] EUNICE MARTE 1955 To Whom It May Concern, Please excuse above patient from work. Date of Illness: for appointment 04/21/2022 May Return to Work On: 04/21/2022 Restrictions: _ Comments: _ Sincerely, [facility] [address], [place] [address] [facility] Urology Office/Clinic Noteon 04-21-2022 Urology [...] addressing at this time, will revisit pending bench hand machine workup Follow-up With When Contact Information Dewey [...] Daily Humalog Mix 50/50 KwikPen, SubCutaneous, BIDAC hydrochlorothiazide- lisinopril 12.5 mg-20 mg Tab, Oral, Daily metformin 500 mg ER Tab, Oral, Daily montelukast 10 mg T (more content not included)... [facility] Comment on above: Result Comment: Elec tronically Signed By: Milvia Palomo MD\.br\Date and Time Signed: 04/21/22 17:24 EDT\.br\Electronically Co-Signed By: Lamar Lowry\.br\Date and Time Co-Signed: 04/21/22 12:13 EDT CBC AUTO DIFFon 01-26-2022 BASO # 0.1 103/ul Normal 0.0-0.1 [facility] Comment on above: Performed By: #### P TT, PT #### [facility] [address] [place] [address] Dr. Marcell Luque Basophils/100 WBC (Bld) 1.1 % Normal 0.2-2.0 [facility] Comment on above: Performed By: #### P TT, PT #### [facility] [address] [place] [address] Dr. Marcell Luque EO # 0.3 103/ul Normal 0.0-0.7 [facility] Comment on above: Performed By: #### P TT, PT #### [facility] [address] [place] [address] Dr. Marcell Luque Eosinophils/100 WBC (Bld) 5.0 % Normal 0.9-7.0 [facility] Comment on above: Performed By: #### P TT, PT #### [facility] [address] [place] [address] Dr. Marcell Luque Erythrocyte distribution width (RBC) [Ratio] 13.0 % Normal 11.0-15.0 [facility] Comment on above: Performed By: #### P TT, PT #### [facility] [address] [place] [address] Dr. Marcell Luque Hematocrit (Bld) [Volume fraction] 44.3 % Normal 42.0-54.0 [facility] Comment on above: Performed By: #### P TT, PT #### [facility] [address] [place] [address] Dr. Marcell Luque Hemoglobin (Bld) [Mass/Vol] 14.3 g/dL Normal 14.0-18.0 [facility] Comment on above: Performed By: #### P TT, PT #### [facility] [address] [place] [address] Dr. Marcell Luque IG # 0.01 10e3/ul Normal 0.00-0.03 [facility] Comment on above: Performed By: #### P TT, PT #### [facility] [address] [place] [address] Dr. Marcell Luque IG % 0.2 % Normal 0.0-0.5 [facility] Comment on above: Performed By: #### P TT, PT #### [facility] [address] [place] [address] Dr. Marcell Luque LYMPH # 2.1 103/ul Normal 1.2-3.8 [facility] Comment on above: Performed By: #### P TT, PT #### [facility] [address] [place] [address] Dr. Marcell Luque Lymphocytes/100 WBC (Bld) 32.6 % Normal 20.5-60.0 [facility] Comment on above: Performed By: #### P TT, PT #### [facility] [address] [place] [address] Dr. Marcell Luque MANUAL DIFF REQ NO Normal [facility] Comment on above: Performed By: #### P TT, PT #### [facility] [address] [place] [address] Dr. Marcell Luque MCH (RBC) [Entitic mass] 27.7 pg Normal 25.9-34.0 [facility] Comment on above: Performed By: #### P TT, PT #### [facility] [address] [place] [address] Dr. Marcell Luque MCHC (RBC) [Mass/Vol] 32.3 g/dL Normal 29.9-35.2 [facility] Comment on above: Performed By: #### P TT, PT #### [facility] [address] [place] [address] Dr. Marcell Luque MCV (RBC) [Entitic vol] 85.7 fL Normal 80.0-94.0 [facility] Comment on above: Performed By: #### P TT, PT #### [facility] [address] [place] [address] Dr. Marcell Luque MONO # 0.4 103/ul Normal 0.3-0.8 [facility] Comment on above: Performed By: #### P TT, PT #### [facility] [address] [place] [address] Dr. Marcell Luque Monocytes/100 WBC (Bld) 6.9 % Normal 1.7-12.0 [facility] Comment on above: Performed By: #### P TT, PT #### [facility] [address] [place] [address] Dr. Marcell Luque NEUT # 3.5 103/ul Normal 1.4-6.5 [facility] Comment on above: Performed By: #### P TT, PT #### [facility] [address] [place] [address] Dr. Marcell Luque Neutrophils/100 WBC (Bld) 54.2 % Normal 43.0-75.0 [facility] Comment on above: Performed By: #### P TT, PT #### [facility] [address] [place] [address] Dr. Marcell Luque Platelet mean volume (Bld) [Entitic vol] 11.9 fL Normal 9.5-13.5 [facility] Comment on above: Performed By: #### P TT, PT #### [facility] [address] [place] [address] Dr. Marcell Luque PLT 268 103/ul Normal 150-450 [facility] Comment on above: Performed By: #### P TT, PT #### [facility] [address] [place] [address] Dr. Marcell Luque RBC 5.17 106/ul Normal 4.70-6.10 [facility] Comment on above: Performed By: #### P TT, PT #### [facility] [address] [place] [address] Dr. Marcell Luque WBC 6.4 103/ul Normal 4.0-11.0 [facility] Comment on above: Performed By: #### P TT, PT #### [facility] [address] [place], [place] [id number] Dr. Marcell Luque GLYCOHEMOGLOBIN A1Con 2021 ADA RECOMMENDATION SEE BELOW Normal [facility] Comment on above: Result Comment: ADA RECOMMENDED LIMIT 4.0 - 6.0 ADA THERAPEUTIC TARGET < 7.0 ACTION SUGGESTED > 7.0 Performed By: #### A 1C #### [facility] [address] [place] [address] Dr. Marcell Luque Glucose [Mass/Vol] 272 mg/dL Normal [facility] Comment on above: Performed By: #### A 1C #### [facility] [address] [place] [address] Dr. Marcell Luque HbA1c (Bld) [Mass fraction] 11.1 % Critically high 4.5-6.2 [facility] Comment on above: Performed By: #### A 1C #### [facility] [address] [place] [address] Dr. Marcell Luque LIPID PROFILEon 01-26-2022 CHOL-HDL RATIO NORM SEE BELOW Normal [facility] Comment on above: Result Comment: 3.3 - 4.4 LOW RISK 4.4 - 7.1 AVERAGE RISK 7.1 - 11.0 MODERATE RISK >11.0 HIGH RISK Performed By: #### L KALPESH LIPID, BMP #### [facility] [address] [place] [address] Dr. Marcell Luque Cholesterol [Mass/Vol] 219 mg/dL Critically high <=200 [facility] Comment on above: Performed By: #### L KALPESH LIPID, BMP #### [facility] [address] [place] [address] Dr. Marcell Luque Cholesterol in HDL [Mass/Vol] 42 mg/dL Normal 40-60 [facility] Comment on above: Performed By: #### L KALPESH LIPID, BMP #### [facility] [address] [place] [address] Dr. Marcell Luque Cholesterol in LDL [Mass/Vol] 151.8 mg/dL Normal [facility] Comment on above: Performed By: #### L KALPESH LIPID, BMP #### [facility] [address] [place] [address] Dr. Marcell Luque Cholesterol.total/Cho lesterol in HDL [Mass ratio] 5.2 {ratio} Normal [facility] Comment on above: Performed By: #### L IVER, LIPID, BMP #### [facility] [address] [address] [address] Marcell Luque HDL NORMAL > or = 60 mg/dl - LOW CARDIOVASCULAR RISK <40 mg/dl - HIGH CARDIOVASCULAR RISK Normal [facility] Comment on above: Performed By: #### L IVER, LIPID, BMP #### [facility] [address] [address] [address] Marcell Luque LDL CALC NORMAL SEE BELOW Normal [facility] Comment on above: Result Comment: <100 mg/dl OPTIMAL 100 - 129 mg/dl NEAR OR ABOVE OPTIMAL 130 - 159 mg/dl BORDERLINE HIGH 160 - 189 mg/dl HIGH >190 mg/dl VERY HIGH Performed By: #### L IVER, LIPID, BMP #### [facility] [address] [address] [address] Marcell Luque Triglyceride [Mass/Vol] 126 mg/dL Normal <=150 [facility] Comment on above: Performed By: #### L IVER, LIPID, BMP #### [facility] [address] [place] [address] Dr. Marcell Luque VLDL CALC 25.2 mg/dL Normal [facility] Comment on above: Performed By: #### L IVER, LIPID, BMP #### [facility] [address] [address] [address] Marcell Luque LIVER PROFILEon 01-26-2022 Albumin [Mass/Vol] 3.8 g/dL Normal 3.4-5.0 [facility] Comment on above: Performed By: #### L IVER, LIPID, BMP #### [facility] [address] [address] [address] Marcell Luque Albumin/Globulin [Mass ratio] 1.0 {ratio} Normal [facility] Comment on above: Performed By: #### L IVER, LIPID, BMP #### [facility] [address] [address] [address] Marcell Luque ALP [Catalytic activity/Vol] 106 U/L Normal 46-116 [facility] Comment on above: Performed By: #### L IVER, LIPID, BMP #### [facility] [address] [place] [address] Dr. Marcell Luque ALT [Catalytic activity/Vol] 34 U/L Normal 16-63 [facility] Comment on above: Performed By: #### L IVER, LIPID, BMP #### [facility] [address] [place] [address] Dr. Marcell Luque AST [Catalytic activity/Vol] 19 U/L Normal 15-37 [facility] Comment on above: Performed By: #### L IVER, LIPID, BMP #### [facility] [address] [place] [address] Dr. Marcell Luque BILI, CONJUGATED 0.1 mg/dL Normal 0.0-0.2 [facility] Comment on above: Performed By: #### L IVER, LIPID, BMP #### [facility] [address] [place] [address] Dr. Marcell Luque Bilirubin [Mass/Vol] 0.5 mg/dL Normal 0.2-1.0 [facility] Comment on above: Performed By: #### L IVER, LIPID, BMP #### [facility] [address] [place] [address] Dr. Marcell Luque Globulin (S) [Mass/Vol] 3.9 g/dL Normal [facility] Comment on above: Performed By: #### L IVER, LIPID, BMP #### [facility] [address] [place] [address] Dr. Marcell Luque Protein [Mass/Vol] 7.7 g/dL Normal 6.4-8.2 [facility] Comment on above: Performed By: #### L IVER, LIPID, BMP #### [facility] [address] [place] [address] Dr. Marcell Luque PROF CHEM 8 (BAS METB)on Anion gap [Moles/Vol] 12.1 mmol/L Normal [facility] Comment on above: Performed By: #### L IVER, LIPID, BMP #### [facility] [address] [place] [address] Dr. Marcell Luque Calcium [Mass/Vol] 9.3 mg/dL Normal 8.5-10.1 [facility] Comment on above: Performed By: #### L IVER, LIPID, BMP #### [facility] [address] [place] [address] Dr. Marcell Luque Chloride [Moles/Vol] 100 mmol/L Normal 98-107 [facility] Comment on above: Performed By: #### L IVER, LIPID, BMP #### [facility] [address] [place] [address] Dr. Marcell Luque CO2 [Moles/Vol] 29.1 mmol/L Normal 21.0-32.0 [facility] Comment on above: Performed By: #### L IVER, LIPID, BMP #### [facility] [address] [place] [address] Dr. Marcell Luque Creatinine [Mass/Vol] 1.23 mg/dL Normal 0.70-1.30 [facility] Comment on above: Performed By: #### L IVER, LIPID, BMP #### [facility] [address] [place] [address] Dr. Marcell Luque EGFR-AF RUSSIAN >60 Normal >=60 [facility] Comment on above: Performed By: #### L IVER, LIPID, BMP #### [facility] [address] [place] [address] Dr. Marcell Luque EGFR-NON AF RUSSIAN 59 mL/min/1.73m2 Critically low >=60 [facility] Comment on above: Performed By: #### L IVER, LIPID, BMP #### [facility] [address] [place] [address] Dr. Marcell Luque Glucose [Mass/Vol] 358 mg/dL Critically high 74-106 [facility] Comment on above: Performed By: #### L IVER, LIPID, BMP #### [facility] [address] [place] [address] Dr. Marcell Luque Potassium [Moles/Vol] 4.2 mmol/L Normal 3.5-5.1 [facility] Comment on above: Performed By: #### L KALPESH LIPID, BMP #### [facility] [address] [address] [address] Marcell Luque Sodium [Moles/Vol] 137 mmol/L Normal 136-145 [facility] Comment on above: Performed By: #### L KALPESH LIPID, BMP #### [facility] [address] [address] [address] Marcell Luque Urea nitrogen [Mass/Vol] 10.0 mg/dL Normal 7.0-18.0 [facility] Comment on above: Performed By: #### L KALPESH LIPID, BMP #### [facility] [address] [place] [address] Dr. Marcell Luque Urea nitrogen/Creatinine [Mass ratio] 8.1 mg/mg Normal [facility] Comment on above: Performed By: #### L KALPESH LIPID, BMP #### [facility] [address] [place] [address] Dr. Marcell Luque VITAMIN D 25 OHon 01-26-2022 VIT D 25-OH 40.2 ng/mL Normal [facility] Comment on above: Performed By: #### P TT, PT #### [facility] [address] [place] [address] Dr. Marcell Luque VIT D RANGES SEE BELOW Normal [facility] Comment on above: Result Comment: <20 ng/mL Vit D deficient 20 - <30 ng/mL Vit D insufficient 30 - 100 ng/mL Vit D sufficient >100 ng/mL Potential Toxicity Performed By: #### P TT, PT #### [facility] [address] [place] [address] Dr. Marcell Luque Protein S Activityon 019 Protein [Mass/Vol] 101 % Normal 77-116 [facility] Comment on above: Result Comment: Patients on [...] APA, PTT, PT, FA8, DRVT, PROCAC, PROSAC ####[facility] [address] [place] [address] Lab Director: Stas Irving MD APTTon 06-15-2019 aPTT Coag (Bld) [Time] 29.6 s Normal 20.5-30.5 [facility] Comment on above: Performed By: #### H OCYS, APA, PTT, PT, FA8, DRVT, PROCAC, PROSAC ####[facility] [address] [place] [address] lab Director: Stas Irving MD Dilute Deepak Viperon 06-15 Dilute Deepak Viper Negative Normal NLUP [facility] Comment on above: Performed By: #### H OCYS, APA, PTT, PT, FA8, DRVT, PROCAC, PROSAC ####[address] [address] lab Director: Stas Irving MD Factor VIII Activityon 06-15 Factor VIII Activity 173 % High 50-150 [facility] Comment on above: Performed By: #### H OCYS, APA, PTT, PT, FA8, DRVT, PROCAC, PROSAC ####[facility] [address] [place] [id number] Lab Director: Stas Irving MD PTon 06-15-2019 INR Coag (PPP) [Relative time] 1.1 {INR} Normal [facility] Comment on above: Result Comment: Therapeutic Range: Moderate Anticoagulant Intensity: INR = 2.0-3.0 High Anticoagulant Intensity: INR = 2.5-3.5 Performed By: #### H OCYS, APA, PTT, PT, FA8, DRVT, PROCAC, PROSAC ####[facility] [address] [place] [id number] lab Director: Stas Irving MD PT Coag (PPP) [Time] 11.8 s Normal 9.0-12.0 [facility] Comment on above: Performed By: #### H OCYS, APA, PTT, PT, FA8, DRVT, PROCAC, PROSAC ####[facility] [address] [place] [address] [id number] Lab Director: Stas Irving MD Protein C Activityon 019 Protein [Mass/Vol] 130 % Normal >80 [facility] Comment on above: Result Comment: Patients on [...] APA, PTT, PT, FA8, DRVT, PROCAC, PROSAC ####[facility] [address] [place] [phone])[phone] Director: Stas Irving MD Anti-Phospholipid Abon 06-12 Antiphospholipid IgA 15.3 APU High <12 [facility] Comment on above: Result Comment: Reference Range: 12 - 15 Equivocal >15 Positive Performed By: #### H OCYS, APA, PTT, PT, FA8, DRVT, PROCAC, PROSAC ####[facility] [address] [place] [address] lab Director: Stas Irving MD Antiphospholipid IgG 2.7 GPU Normal <20 [facility] Comment on above: Result Comment: Reference Range: 20.0 - 29.9 Low Positive 30.0 - 79.9 Moderate Positive >79.9 High Positive Performed By: #### H OCYS, APA, PTT, PT, FA8, DRVT, PROCAC, PROSAC ####[facility] [address] [place] [address] [id number] lab Director: Stas Irving MD Antiphospholipid IgM 4.7 MPU Normal <20 [facility] Comment on above: Result Comment: Reference Range: 20.0 - 29.9 Low Positive 30.0 - 79.9 Moderate Positive >79.9 High Positive Performed By: #### H OCYS, APA, PTT, PT, FA8, DRVT, PROCAC, PROSAC ####[facility] [address] [place] [address] Lab Director: Stas Irving MD Basic Metabolic Panel 05-22 Anion gap [Moles/Vol] 12 mmol/L 9 - 17 mmol/L [place] Bun/Cre Ratio NOT REPORTED [place] Calcium [Mass/Vol] 9.6 mg/dL 8.6 - 10. 4 mg/dL [place] Chloride [Moles/Vol] 97 mmol/L Low 98 - 10 7 mmol/L [place] CO2 [Moles/Vol] 29 mmol/L 20 - 31 mmol/L [place] Creatinine [Mass/Vol] 1.08 mg/dL 0.7 - 1.2 mg/dL [place] GFR >60 >60 mL/min [place] GFR Non- >60 >60 mL/min [place] GFR/1.73 sq M predicted among non-blacks MDRD (S/P/Bld) [Vol rate/Area] [place] Comment on above: Average GFR for 60-6 9 years old: 85 mL/min/1.73sq m Chronic Kidney Disease: <60 mL/min/1.73sq m Kidney failure: <15 mL/min/1.73sq m eGFR calculated using average adult body mass. Additional eGFR calculator available at: http://www.[employer]/multiple_crcl_2012.htm GFR/1.73 sq M predicted among non-blacks MDRD (S/P/Bld) [Vol rate/Area] NOT REPORTED [place] Glucose [Mass/Vol] 198 mg/dL High 70 - 99 mg/dL [place], [place] Interpretation and review of laboratory results Abnormal [place] Potassium [Moles/Vol] 3.9 mmol/L 3.7 - 5.3 mmol/L [place] Sodium [Moles/Vol] 138 mmol/L 135 - 144 mmol/L [place] Urea nitrogen [Mass/Vol] 14 mg/dL 8 - 23 mg/dL [place] Basic Metabolic Profon 06-09 (cont.) Normal [facility] Comment on above: Result Comment: Aver age GFR for 60-69 years old: 85 mL/min/1.73sq m Chronic Kidney Disease: <60 mL/min/1.73sq m Kidney failure: <15 mL/min/1.73sq m eGFR calculated using average adult body mass. Additional eGFR calculator available at: http://www.[employer]/multiple_crcl_2012.htm Performed By: #### C DP, BMP ####[facility] [address] [place] [address] Lab Director: Stas Irving MD Anion gap [Moles/Vol] 12 mmol/L Normal 9-17 [facility] Comment on above: Performed By: #### C DP, BMP ####[facility] [address] [place] [address] Lab Director: Stas Irving MD Calcium [Mass/Vol] 9.6 mg/dL Normal 8.6-10.4 [facility] Comment on above: Performed By: #### C DP, BMP ####[facility] [address] [place] [address] Lab Director: Stas Irving MD Chloride [Moles/Vol] 97 mmol/L Low 98-107 [facility] Comment on above: Performed By: #### C DP, BMP ####[facility] [address] [place] [address] Lab Director: Stas Irving MD CO2 [Moles/Vol] 29 mmol/L Normal 20-31 [facility] Comment on above: Performed By: #### C DP, BMP ####[facility] [address] [place] [address] Lab Director: Stas Irving MD Creatinine [Mass/Vol] 1.08 mg/dL Normal 0.70-1.20 [facility] Comment on above: Performed By: #### C DP, BMP ####[facility] [address] [place] [address] Lab Director: Stas Irving MD GFR, Amer >60 Normal >60 [facility] Comment on above: Performed By: #### C DP, BMP ####[facility] [address] [place], [place] [phone] Director: Stas Irving MD GFR,non Amer >60 Normal >60 [facility] Comment on above: Performed By: #### C DP, BMP ####[facility] [address] [place], [place] [phone] Director: Stas Irving MD Glucose [Mass/Vol] 198 mg/dL High 70-99 [facility] Comment on above: Performed By: #### C DP, BMP ####[facility] [address] [place], [place] [phone] Director: Stas Irving MD Potassium [Moles/Vol] 3.9 mmol/L Normal 3.7-5.3 [facility] Comment on above: Performed By: #### C DP, BMP ####[facility] [address] [place], [place] [phone] Director: Stas Irving MD Sodium [Moles/Vol] 138 mmol/L Normal 135-144 [facility] Comment on above: Performed By: #### C DP, BMP ####[facility] [address] [place], [place] [phone] Director: Stas Irving MD Urea nitrogen [Mass/Vol] 14 mg/dL Normal 8-23 [facility] Comment on above: Performed By: #### C DP, BMP ####[facility] [address] [place], [place] [id number] Lab Director: Stas Irving MD BUN/CRE Ratio NOT REPORTED Normal 9- [facility] Comment on above: Performed By: #### C DP, BMP ####[facility] [address] [place], [place] [id number] Lab Director: Stas Irving MD Staging: NOT REPORTED Normal [facility] Comment on above: Performed By: #### C DP, BMP ####[facility] [address] [place], [place] [id number] lab Director: Stas Irving MD CBC Auto Differentialon 05-22 Basophils (Bld) [#/Vol] 0.07 10*3/uL [place] Basophils/100 WBC (Bld) 1 % 0 - 2 % [place] Differential Type NOT REPORTED [place] Eosinophils (Bld) [#/Vol] 0.77 10*3/uL High [place] Eosinophils/100 WBC (Bld) 10 % High 1 - 4 % [place] Erythrocyte distribution width (RBC) [Ratio] 13.7 % 11.8 - 14.4 % [place] Hematocrit (Bld) [Volume fraction] 53.7 % High 40.7 - 50.3 % [place] Hemoglobin (Bld) [Mass/Vol] 17.0 g/dL 13 - 17 g/dL [place] Immature granulocytes (Bld) [#/Vol] 10*3/uL [place] Immature granulocytes (Bld) [#/Vol] 0 % 0 [place] Interpretation and review of laboratory results Abnormal [place] Lymphocytes (Bld) [#/Vol] 2.66 10*3/uL [place] Lymphocytes/100 WBC (Bld) 36 % 24 - 43 % [place] MCH (RBC) [Entitic mass] 28.3 pg 25.2 - 33.5 pg [place] MCHC (RBC) [Mass/Vol] 31.7 g/dL 28.4 - 34.8 g/dL [place] MCV (RBC) [Entitic vol] 89.5 fL 82.6 - 102.9 fL [place] Monocytes (Bld) [#/Vol] 0.89 10*3/uL [place] Monocytes/100 WBC (Bld) 12 % 3 - 12 % [place] Platelet mean volume (Bld) [Entitic vol] 10.9 fL 8.1 - 13.5 fL [place] Platelets (Bld) [#/Vol] NOT REPORTED [place] Platelets (Bld) [#/Vol] 189 10*3/uL [place] RBC (Bld) [#/Vol] 6.00 10*6/uL High 4.21 - 5.7 7 m/uL [place] RBC morphology finding Nom (Bld) NOT REPORTED [place] Segmented neutrophils/100 WBC (Bld) 41 % 36 - 65 % [place] Segs Absolute 3.07 [place] WBC (Bld) [#/Vol] 0.0 10*3/uL 0.0 per 10 0 WBC [place] WBC (Bld) [#/Vol] 7.5 10*3/uL [place] WBC Morphology NOT REPORTED [place] CBC with Diffon 06-09-2019 Abs. Basophil 0.07 k/uL Normal 0.00-0.20 [facility] Comment on above: Performed By: #### C LISANDRO, BONI ####[facility] [address] [place] [address] [facility] Director: Stas Irving MD Abs.Imm.Granulocyte <0.03 Normal 0.00-0.30 [facility] Comment on above: Performed By: #### C DP, BMP ####[facility] [address]fpx[address]81 [place], [place] [id number])[phone] Director: Stas Irving MD Abs.Neutrophil (Seg) 3.07 k/uL Normal 1.50-8.10 [facility] Comment on above: Performed By: #### C DP, BMP ####[address] [address])[phone] Director: Stas Irving MD Basophils/100 WBC (Bld) 1 % Normal 0-2 [facility] Comment on above: Performed By: #### C DP, BMP ####[address] [address])[phone] Director: Stas Irving MD Eosinophils (Bld) [#/Vol] 0.77 10*3/uL High 0.00-0.44 [facility] Comment on above: Performed By: #### C DP, BMP ####[address] [address])[phone] Director: Stas Irving MD Eosinophils/100 WBC (Bld) 10 % High 1-4 [facility] Comment on above: Performed By: #### C DP, BMP ####[address] [address])[phone] Director: Stas Irving MD Erythrocyte distribution width (RBC) [Ratio] 13.7 % Normal 11.8-14.4 [facility] Comment on above: Performed By: #### C DP, BMP ####[facility] [address] [place] [address])[phone] Director: Stas Irving MD Hematocrit (Bld) [Volume fraction] 53.7 % High 40.7-50.3 [facility] Comment on above: Performed By: #### C DP, BMP ####[facility] [address] [place] [address] Lab Director: Stas Irving MD Hemoglobin (Bld) [Mass/Vol] 17.0 g/dL Normal 13.0-17.0 [facility] Comment on above: Performed By: #### C DP, BMP ####[address] [address] Lab Director: Stas Irving MD Immature granulocytes (Bld) [#/Vol] 0 % Normal 0 [facility] Comment on above: Performed By: #### C DP, BMP ####[address] [address] Lab Director: Stas Irving MD Lymphocytes (Bld) [#/Vol] 2.66 10*3/uL Normal 1.10-3.70 [facility] Comment on above: Performed By: #### C DP, BMP ####[address] [phone] Director: Stas Irving MD Lymphocytes/100 WBC (Bld) 36 % Normal 24-43 [facility] Comment on above: Performed By: #### C DP, BMP ####[facility] Hz[address]54[address] [place], [place] [id number])[phone] Director: Stas Irving MD MCH (RBC) [Entitic mass] 28.3 pg Normal 25.2-33.5 [facility] Comment on above: Performed By: #### C DP, BMP ####[facility] [address] [place] [address] [id number])[phone] Director: Stas Irving MD MCHC (RBC) [Mass/Vol] 31.7 g/dL Normal 28.4-34.8 [facility] Comment on above: Performed By: #### C DP, BMP ####[facility] [address] [place] [address] Lab Director: Stas Irving MD MCV (RBC) [Entitic vol] 89.5 fL Normal 82.6-102.9 [facility] Comment on above: Performed By: #### C DP, BMP ####[place], [place] [address])[phone] Director: Stas Irving MD Monocytes (Bld) [#/Vol] 0.89 10*3/uL Normal 0.10-1.20 [facility] Comment on above: Performed By: #### C DP, BMP ####[place], [place] [address])[phone] Director: Stas Irving MD Monocytes/100 WBC (Bld) 12 % Normal 3-12 [facility] Comment on above: Performed By: #### C DP, BMP ####[place], [place] [address])[phone] Director: Stas Irving MD Neutrophil (Seg) 41 % Normal 36-65 [facility] Comment on above: Performed By: #### C DP, BMP ####[place], [place] [address])[phone] Director: Stas Irving MD NRBC Automated 0.0 per 100 WBC Normal 0.0 [facility] Comment on above: Performed By: #### C DP, BMP ####[place], [place] [address])[phone] Director: Stas Irving MD Platelet mean volume (Bld) [Entitic vol] 10.9 fL Normal 8.1-13.5 [facility] Comment on above: Performed By: #### C DP, BMP ####[place], [place] [address])[phone] Director: Stas Irving MD Platelets (Bld) [#/Vol] 189 10*3/uL Normal 138-453 [facility] Comment on above: Performed By: #### C DP, BMP ####[facility] [address]107 [place] [address] Lab Director: Stas Irving MD RBC (Bld) [#/Vol] 6.00 10*6/uL High 4.21-5.77 [facility] Comment on above: Performed By: #### C DP, BMP ####[facility] [place] [address] Lab Director: Stas Irving MD WBC (Bld) [#/Vol] 7.5 10*3/uL Normal 3.5-11.3 [facility] Comment on above: Performed By: #### C DP, BMP ####[address] [place] [address] Lab Director: Stas Irving MD Auto Diff Performed NOT REPORTED Normal [facility] Comment on above: Performed By: #### C DP, BMP ####[facility] [place] [address] Lab Director: Stas Irving MD Platelets (Bld) [#/Vol] NOT REPORTED Normal [facility] Comment on above: Performed By: #### C DP, BMP ####[facility] [address] [place] [address] Lab Director: Stas Irving MD RBC morphology finding Nom (Bld) NOT REPORTED Normal [facility] Comment on above: Performed By: #### C DP, BMP ####[facility] Dyjlsjmshqxj8274 [place], [place] [id number])[phone] Director: Stas Irving MD WBC Morphology NOT REPORTED Normal [facility] Comment on above: Performed By: #### C DP, BMP ####[facility] [address]3485 [place] [address] Lab Director: Stas Irving MD DNA Testingon 06-09-2019 DNA Testing (NOTE) [id number] [facility] MOLECULAR PATHOLOGY LABORATORY [address] [place] [phone] FACTOR V LEIDEN MUTATION ANALYSIS REPORT [facility] [employer] [facility] Aron Llanes MD, Ravinder Pratt MD Specimen(s) Received: Peripheral blood, FVLI Clinical Information: CVA RESULTS: MOLECULAR GENETIC DIAGNOSIS: Negative for Factor V Leiden Mutation INTERPRETATION: The Factor V Leiden mutation (1691GA) [c.1601G>A(p.Www093D ln)] was not detected in this study. This patient may, however, still be at risk for venous thrombosis due to another genetic predisposition including the Factor II (Prothrombin 79001WD) mutation or either of the 5, 10-methylenetetrahyd rofolate reductase (MTHFR) mutations (677T and S4323F) Additional molecular testing is available for these [...] which predicts a single amino acid replacement (Dsi503Tdu) at one of three activated protein C [...] the Invader Factor V test that utilizes [employer] chemistry for detecting gene-specific sequences. Target amplification [...] Invader and Cleavase are registered trademarks of [employer]. This test is performed pursuant to an agreement with [employer]. Electronically Signed Out Ravinder Pratt M.D. [facility] Comment on above: Performed By: #### P PPFVL ####[address] [phone] Lab Director: Stas Irving MD DNA Testing (NOTE) [id number] [facility] MOLECULAR PATHOLOGY LABORATORY [facility] [place], [place] [phone] FACTOR II (PROTHROMBIN) MUTATION ANALYSIS REPORT [facility] Aron Llanes MD, Ravinder Pratt MD Specimen(s) Received: Peripheral blood, PTI Clinical Information: CVA RESULTS: MOLECULAR GENETIC DIAGNOSIS: Negative for Prothrombin 80057T Mutation INTERPRETATION: The Factor II (Prothrombin) mutation (66539CP) [c.*97G>A] was not detected in this study. This patient may, however, still be at risk for venous thrombosis due to another genetic predisposition including the Factor V Leiden (1691GA) mutation or either of the 5, 10-methylenetetrahyd rofolate reductase (MTHFR) mutations (677T and P0634V). Additional molecular testing is available for these [...] been identified in exon 14 at position 66789 of the prothrombin gene (59294JE). This allele has a population frequency of 1.2% and is associated with a 2.8 fold increased risk of venous thrombosis in individuals of [place] ancestry. Patient DNA is assayed for the presence of wild type or mutant gene sequences in the Factor II (Prothrombin) gene by the Invader Factor II test that utilizes [employer] chemistry for detecting gene-specific sequences. Target amplification [...] Invader and Cleav[employer] are registered trademarks of [employer] This test is performed pursuant to an agreement with [employer] Electronically Signed Out Ravinder Pratt M.D. Normal [facility] Comment on above: Performed By: #### P PPPT ####[address] [place] [address] [facility] Director: Stas Irving MD Homocysteineon 06-09-2019 Homocysteine 9.4 umol/L Normal <15.0 [facility] Comment on above: Performed By: #### H OCYS, APA, PTT, PT, FA8, DRVT, PROCAC, PROSAC ####[facility] [address] [place] [address] lab Director: Stas Irving MD Homocysteine, Serumon 2018 Homocysteine 9.4 umol/L <15.0 [place], [place] POC Glucose Fingerstickon Glucose [Mass/Vol] 276 mg/dL High 75 - 110 mg/dL [place], [place] Interpretation and review of laboratory results Abnormal [place] Glucose [Mass/Vol] 190 mg/dL High 75 - 110 mg/dL [place] Interpretation and review of laboratory results Abnormal [place] Basic Metabolic Panelon 05-22 Anion gap [Moles/Vol] 14 mmol/L 9 - 17 mmol/L [place] Bun/Cre Ratio NOT REPORTED [place] Calcium [Mass/Vol] 9.2 mg/dL 8.6 - 10. 4 mg/dL [place] Chloride [Moles/Vol] 96 mmol/L Low 98 - 10 7 mmol/L [place] CO2 [Moles/Vol] 24 mmol/L 20 - 31 mmol/L [place] Creatinine [Mass/Vol] 0.79 mg/dL 0.7 - 1.2 mg/dL [place] GFR >60 >60 mL/min [place] GFR Non- >60 >60 mL/min [place] GFR/1.73 sq M predicted among non-blacks MDRD (S/P/Bld) [Vol rate/Area] NOT REPORTED [place] GFR/1.73 sq M predicted among non-blacks MDRD (S/P/Bld) [Vol rate/Area] [place] Comment on above: Average GFR for 60-6 9 years old: 85 mL/min/1.73sq m Chronic Kidney Disease: <60 mL/min/1.73sq m Kidney failure: <15 mL/min/1.73sq m eGFR calculated using average adult body mass. Additional eGFR calculator available at: http://www.[employer]/multiple_crcl_2012.htm Glucose [Mass/Vol] 225 mg/dL High 70 - 99 mg/dL [place] Interpretation and review of laboratory results Abnormal [place] Potassium [Moles/Vol] 3.3 mmol/L Low 3.7 - 5.3 mmol/L [place] Sodium [Moles/Vol] 134 mmol/L Low 135 - 144 mmol/L [place] Urea nitrogen [Mass/Vol] 11 mg/dL 8 - 23 mg/dL [place] Basic Metabolic Profon 06-08 (cont.) Normal [facility] Comment on above: Result Comment: Aver age GFR for 60-69 years old: 85 mL/min/1.73sq m Chronic Kidney Disease: <60 mL/min/1.73sq m Kidney failure: <15 mL/min/1.73sq m eGFR calculated using average adult body mass. Additional eGFR calculator available at: http://www.[employer]/multiple_crcl_2012.htm Performed By: #### S MAGDY #### [facility] [address] [place] [address] [phone] Equal Opportunity Officer: Stas Irving MD Anion gap [Moles/Vol] 14 mmol/L Normal 9-17 [facility] Comment on above: Performed By: #### S TOREYKE #### [employer] [facility] [place], [place] [id number] Equal Opportunity Officer: Stas Irving MD Calcium [Mass/Vol] 9.2 mg/dL Normal 8.6-10.4 [facility] Comment on above: Performed By: #### S TOREYKE #### [employer] [address] [place] [address] [phone] Equal Opportunity Officer: Stas Irving MD Chloride [Moles/Vol] 96 mmol/L Low 98-107 [facility] Comment on above: Performed By: #### S TROKE #### [address] [address] Equal Opportunity Officer: Stas Irving MD CO2 [Moles/Vol] 24 mmol/L Normal 20-31 [facility] Comment on above: Performed By: #### S TROKE #### [address] [address] Equal Opportunity Officer: Stas Irving MD Creatinine [Mass/Vol] 0.79 mg/dL Normal 0.70-1.20 [facility] Comment on above: Performed By: #### S TROKE #### [address] [address] Equal Opportunity Officer: Stas Irving MD GFR, Amer >60 Normal >60 [facility] Comment on above: Performed By: #### S TROKE #### [address] [address] Equal Opportunity Officer: Stas Irving MD GFR,non Amer >60 Normal >60 [facility] Comment on above: Performed By: #### S TROKE #### [address] [address] Equal Opportunity Officer: Stas Irving MD Glucose [Mass/Vol] 225 mg/dL High 70-99 [facility] Comment on above: Performed By: #### S TROKE #### [address] [address] Equal Opportunity Officer: Stas Irving MD Potassium [Moles/Vol] 3.3 mmol/L Low 3.7-5.3 [facility] Comment on above: Performed By: #### S TROKE #### [address] [address] Equal Opportunity Officer: Stas Irving MD Sodium [Moles/Vol] 134 mmol/L Low 135-144 [facility] Comment on above: Performed By: #### S TOREYKE #### [facility] [address] [place] [address] Equal Opportunity Officer: Stas Irving MD Urea nitrogen [Mass/Vol] 11 mg/dL Normal - [facility] Comment on above: Performed By: #### S TOREYKE #### [facility] [address] [place] [address] Equal Opportunity Officer: Stas Irving MD BUN/CRE Ratio NOT REPORTED Normal 05-11 [facility] Comment on above: Performed By: #### S TOREYKE #### [facility] [address] [place] [address] Equal Opportunity Officer: Stas Irving MD Staging: NOT REPORTED Normal [facility] Comment on above: Performed By: #### S TOREYKE #### [facility] [address] [place] [address] Equal Opportunity Officer: Stas Irving MD CBC Auto Differentialon 05-22 Basophils (Bld) [#/Vol] 0.06 10*3/uL [place] Basophils/100 WBC (Bld) 1 % 0 - 2 % [place] Differential Type NOT REPORTED [place] Eosinophils (Bld) [#/Vol] 0.56 10*3/uL High [place] Eosinophils/100 WBC (Bld) 8 % High 1 - 4 % [place] Erythrocyte distribution width (RBC) [Ratio] 13.9 % 11.8 - 14.4 % [place] Hematocrit (Bld) [Volume fraction] 50.9 % High 40.7 - 50.3 % [place] Hemoglobin (Bld) [Mass/Vol] 16.8 g/dL 13 - 17 g/dL [place] Immature granulocytes (Bld) [#/Vol] 1 % High 0 [place] Immature granulocytes (Bld) [#/Vol] 0.04 10*3/uL [place] Interpretation and review of laboratory results Abnormal [place] Lymphocytes (Bld) [#/Vol] 2.28 10*3/uL [place] Lymphocytes/100 WBC (Bld) 32 % 24 - 43 % [place] MCH (RBC) [Entitic mass] 28.6 pg 25.2 - 33.5 pg [place] MCHC (RBC) [Mass/Vol] 33.0 g/dL 28.4 - 34.8 g/dL [place] MCV (RBC) [Entitic vol] 86.6 fL 82.6 - 102.9 fL [place] Monocytes (Bld) [#/Vol] 0.79 10*3/uL [place] Monocytes/100 WBC (Bld) 11 % 3 - 12 % [place] Platelet mean volume (Bld) [Entitic vol] 12.0 fL 8.1 - 13.5 fL [place] Platelets (Bld) [#/Vol] 285 10*3/uL [place] Platelets (Bld) [#/Vol] NOT REPORTED [place] RBC (Bld) [#/Vol] 5.88 10*6/uL High 4.21 - 5.7 7 m/uL [place] RBC morphology finding Nom (Bld) NOT REPORTED [place] Segmented neutrophils/100 WBC (Bld) 47 % 36 - 65 % [place] Segs Absolute 3.38 [place] WBC (Bld) [#/Vol] 7.1 10*3/uL [place] WBC (Bld) [#/Vol] 0.3 10*3/uL High 0.0 per 10 0 WBC [place] WBC Morphology NOT REPORTED [place] CBC with Diffon 06-08-2019 Abs. Basophil 0.06 k/uL Normal 0.00-0.20 [facility] Comment on above: Performed By: #### S MAGDY #### [address] [address] Equal Opportunity Officer: Stas Irving MD Abs.Imm.Granulocyte 0.04 k/uL Normal 0.00-0.30 [facility] Comment on above: Performed By: #### S TOREYKE #### [address] [address] Equal Opportunity Officer: Stas Irving MD Abs.Neutrophil (Seg) 3.38 k/uL Normal 1.50-8.10 [facility] Comment on above: Performed By: #### S MAGDY #### [address] [address] Equal Opportunity Officer: Stas Irving MD Basophils/100 WBC (Bld) 1 % Normal 0-2 [facility] Comment on above: Performed By: #### S MAGDY #### [address] [address] Equal Opportunity Officer: Stas Irving MD Eosinophils (Bld) [#/Vol] 0.56 10*3/uL High 0.00-0.44 [facility] Comment on above: Performed By: #### S TOREYKE #### [address] [address] Equal Opportunity Officer: Stas Irving MD Eosinophils/100 WBC (Bld) 8 % High 1-4 [facility] Comment on above: Performed By: #### S TOREYKE #### [address] [address] Equal Opportunity Officer: Stas Irving MD Erythrocyte distribution width (RBC) [Ratio] 13.9 % Normal 11.8-14.4 [facility] Comment on above: Performed By: #### S TOREYKE #### [address] [address] Equal Opportunity Officer: Stas Irving MD Hematocrit (Bld) [Volume fraction] 50.9 % High 40.7-50.3 [facility] Comment on above: Performed By: #### S MAGDY #### [address] [address] Equal Opportunity Officer: Stas Irving MD Hemoglobin (Bld) [Mass/Vol] 16.8 g/dL Normal 13.0-17.0 [facility] Comment on above: Performed By: #### S MAGDY #### [address] [address] Equal Opportunity Officer: Stas Irving MD Immature granulocytes (Bld) [#/Vol] 1 % High 0 [facility] Comment on above: Performed By: #### S MAGDY #### [place] [address] Equal Opportunity Officer: Stas Irving MD Lymphocytes (Bld) [#/Vol] 2.28 10*3/uL Normal 1.10-3.70 [facility] Comment on above: Performed By: #### S MAGDY #### [address] [address] Equal Opportunity Officer: Stas Irving MD Lymphocytes/100 WBC (Bld) 32 % Normal 24-43 [facility] Comment on above: Performed By: #### S MAGDY #### [place] [address] Equal Opportunity Officer: Stas Irving MD MCH (RBC) [Entitic mass] 28.6 pg Normal 25.2-33.5 [facility] Comment on above: Performed By: #### S MAGDY #### [address] [address] Equal Opportunity Officer: Stas Irving MD MCHC (RBC) [Mass/Vol] 33.0 g/dL Normal 28.4-34.8 [facility] Comment on above: Performed By: #### S TROKE #### [address] [address] Equal Opportunity Officer: Stas Irving MD MCV (RBC) [Entitic vol] 86.6 fL Normal 82.6-102.9 [facility] Comment on above: Performed By: #### S TROKE #### [address] [address] Equal Opportunity Officer: Stas Irving MD Monocytes (Bld) [#/Vol] 0.79 10*3/uL Normal 0.10-1.20 [facility] Comment on above: Performed By: #### S TROKE #### [address] [address] Equal Opportunity Officer: Stas Irving MD Monocytes/100 WBC (Bld) 11 % Normal 3-12 [facility] Comment on above: Performed By: #### S TROKE #### [address] [address] Equal Opportunity Officer: Stas Irving MD Neutrophil (Seg) 47 % Normal 36-65 [facility] Comment on above: Performed By: #### S TROKE #### [address] [address] Equal Opportunity Officer: Stas Irving MD NRBC Automated 0.3 per 100 WBC High 0.0 [facility] Comment on above: Performed By: #### S TROKE #### [address] [address] Equal Opportunity Officer: Stas Irving MD Platelet mean volume (Bld) [Entitic vol] 12.0 fL Normal 8.1-13.5 [facility] Comment on above: Performed By: #### S TROKE #### [address] [address] Equal Opportunity Officer: Stas Irving MD Platelets (Bld) [#/Vol] 285 10*3/uL Normal 138-453 [facility] Comment on above: Performed By: #### S TOREYKE #### [address] [address] Equal Opportunity Officer: Stas Irving MD RBC (Bld) [#/Vol] 5.88 10*6/uL High 4.21-5.77 [facility] Comment on above: Performed By: #### S TOREYKE #### [address] [address] Equal Opportunity Officer: Stas Irving MD WBC (Bld) [#/Vol] 7.1 10*3/uL Normal 3.5-11.3 [facility] Comment on above: Performed By: #### S MAGDY #### [address] [address] Equal Opportunity Officer: Stas Irving MD Auto Diff Performed NOT REPORTED Normal [facility] Comment on above: Performed By: #### S MAGDY #### [address] [address] Equal Opportunity Officer: Stas Irving MD Platelets (Bld) [#/Vol] NOT REPORTED Normal [facility] Comment on above: Performed By: #### S TOREYKE #### [address] [address] Equal Opportunity Officer: Stas Irving MD RBC morphology finding Nom (Bld) NOT REPORTED Normal [facility] Comment on above: Performed By: #### S TOREYKE #### [address] [address] Equal Opportunity Officer: Stas Irving MD WBC Morphology NOT REPORTED Normal [facility] Comment on above: Performed By: #### S MAGDY #### [address] [id number] Equal Opportunity Officer: Stas Irving MD Magnesiumon 06-08-2019 Magnesium [Mass/Vol] 2.0 mg/dL Normal 1.6-2.6 [facility] Comment on above: Performed By: #### S TROKE #### [facility] [address] [place], [place] [phone] Equal Opportunity Officer: Stas Irving MD Magnesium [Mass/Vol] 2.0 mg/dL 1.6 - 2 .6 mg/dL [place] POC Glucose Fingerstickon Glucose [Mass/Vol] 288 mg/dL High 75 - 110 mg/dL [place] Interpretation and review of laboratory results Abnormal [place] Glucose [Mass/Vol] 350 mg/dL High 75 - 110 mg/dL [place] Interpretation and review of laboratory results Abnormal [place] Glucose [Mass/Vol] 238 mg/dL High 75 - 110 mg/dL [place] Interpretation and review of laboratory results Abnormal [place] Glucose [Mass/Vol] 244 mg/dL High 75 - 110 mg/dL [place] Interpretation and review of laboratory results Abnormal [place] Phosphoruson 06-08-2019 Phosphate [Mass/Vol] 4.5 mg/dL 2.5 - 4 .5 mg/dL [place] Phosphorus, Inorg.on 019 Phosphorus, Inorg. 4.5 mg/dL Normal 2.5-4.5 [facility] Comment on above: Performed By: #### C DP, BMP, MG, CINTHYA ####[employer] [employer] [address] [place], [place] [id number] Lab Director: Stas Irving MD VL DUP LOWER EXTREMITY VENOU S BILATERALon 06-08-2019 [facility] Vascular Lower Extremities DVT Study Procedure [facility] Date of Study 06/08/2019 EUNICE Alcantara Date of 1955 Gender Male Age 63 year(s) Race Black Room Number 0515 Height: 72 inch, 182.88 cm Corporate ID [id number] Weight: 220 pounds, 99.8 kg # Patient Acct [id number] BSA: 2.22 m^2 BMI: 29.84 kg/m^2 # MR # [id number] Clinical Counselor Rina Frausto Interpreting Omer Oneil Physician Referring Referring Physician DYLON VICK APRN-DIRECT CARE PROFESSIONAL Nurse Practitioner Procedure Type of Study: Veins: [...] of deep or superficial venous thrombosis. Signature ---- ---- ---- ---- Findings: Right Impression: Left Impression: The common femoral, femoral, The common femoral, femoral, popliteal and tibial veins popliteal and tibial veins demonstrate normal compressibility demonstrate normal compressibility and augmentation. and augmentation. Normal compressibility of the great Normal compressibility of the great saphenous vein. saphenous vein. Normal compressibility of the small Normal compressibility of the small saphenous vein. saphenous vein. Risk Factors History +---------+----+---- + !Diagnosis!Date!Comm ents ! +---------+----+---- + !DVT ! !LT leg 7 yrs ago ! +---------+----+---- + - The patient's risk factor(s) include: insulin-treated diabetes mellitus, dyslipidemia and arterial hypertension. - The patient's last creatinine was 0.8 mg/dl. Allergies - Allergy:Penicillin(D rug). Velocities are measured in cm/s ; Diameters are measured in cm Right Lower Extremities DVT Study Measurements Right 2D Measurements + +-- --------+ ----+ + !Location !Visualized!Compress ibility!Thrombosis! + +-- --------+ ----+ + !Common Femoral !Yes !Yes !None ! + +-- --------+ ----+ + !Prox Femoral !Yes !Yes !None ! + +-- --------+ ----+ + !Mid Femoral !Yes !Yes !None ! + +-- --------+ ----+ + !Dist Femoral !Yes !Yes !None ! + +-- --------+ ----+ + !Deep Femoral !Yes !Yes !None ! + +-- --------+ ----+ + !Popliteal !Yes !Yes !None ! + +-- --------+ ----+ + !Sapheno Femoral Junction !Yes !Yes !None ! + +-- --------+ ----+ + !PTV !Yes !Yes !None ! + +-- --------+ ----+ + !Peroneal !Yes !Yes !None ! + +-- --------+ ----+ + !Gastroc !Yes !Yes !None ! + +-- --------+ ----+ + !GSV Thigh !Yes !Yes !None ! + +-- --------+ ----+ + !GSV Knee !Yes !Yes !None ! + +-- --------+ ----+ + !GSV Ankle !Yes !Yes !None ! + +-- --------+ ----+ + !SSV !Yes !Yes !None ! + +-- --------+ ----+ + Right Doppler Measurements + --------+------+---- --+ + !Location !Signal!Reflux!Reflu x (msec) ! + --------+------+---- --+ + !Common Femoral !Phasic! ! ! + --------+------+---- --+ + !Prox Femoral !Phasic! ! ! + --------+------+---- --+ + !Popliteal !Phasic! ! ! + --------+------+---- --+ + Left Lower Extremities DVT Study Measurements Left 2D Measurements + +-- --------+ ----+ + !Location !Visualized!Compress ibility!Thrombosis! + +-- --------+ ----+ + !Common Femoral !Yes !Yes !None ! + +-- --------+ ----+ + !Prox Femoral !Yes !Yes !None ! + +-- --------+ ----+ + !Mid Femoral !Yes !Yes !None ! + +-- --------+ ----+ + !Dist Femoral !Yes !Yes !None ! + +-- --------+ ----+ + !Deep Femoral !Yes !Yes !None ! + +-- --------+ ----+ + !Popliteal !Yes !Yes !None ! + +-- --------+ ----+ + !Sapheno Femoral Junction !Yes !Yes !None ! + +-- --------+ ----+ + !PTV !Yes !Yes !None ! + +-- --------+ ----+ + !Peroneal !Yes !Yes !None ! + +-- --------+ ----+ + !Gastroc !Yes !Yes !None ! + +-- --------+ ----+ + !GSV Thigh !Yes !Yes !None ! + +-- --------+ ----+ + !GSV Knee !Yes !Yes !None ! + +-- --------+ ----+ + !GSV Ankle !Yes !Yes !None ! + +-- --------+ ----+ + !SSV !Yes !Yes !None ! + +-- --------+ ----+ + Left Doppler Measurements + --------+------+---- --+ + !Location !Signal!Reflux!Reflu x (msec) ! + --------+------+---- --+ + !Common Femoral !Phasic! ! ! + --------+------+---- --+ + !Prox Femoral !Phasic! ! ! + --------+------+---- --+ + !Popliteal !Phasic! ! ! + --------+------+---- --+ + [employer] [facility] [place], [place] Nav, Mhpn Incoming Cardio Results From Cpacs/Ge - 06/08/2019 6:36 PM EDT [facility] Vascular Lower Extremities DVT Study Procedure Patient Name LYDIA Date of Study 06/08/2019 EUNICE Alcantara Date of 1955 Gender Male Age 63 year(s) Race Black Room Number 0515 Height: 72 inch, 182.88 cm Corporate ID [id number] Weight: 220 pounds, 99.8 kg # Patient Acct [id number] BSA: 2.22 m^2 BMI: 29.84 kg/m^2 # MR # [id number] Clinical Counselor Rina Frausto Interpreting Omer Oneil Physician Referring Referring Physician DYLON VICK [employer] PROFESSIONAL Nurse Practitioner Procedure Type of Study: Veins: [...] of deep or superficial venous thrombosis. Signature ---- ---- ---- ---- Findings: Right Impression: Left Impression: The common femoral, femoral, The common femoral, femoral, popliteal and tibial veins popliteal and tibial veins demonstrate normal compressibility demonstrate normal compressibility and augmentation. and augmentation. Normal compressibility of the great Normal compressibility of the great saphenous vein. saphenous vein. Normal compressibility of the small Normal compressibility of the small saphenous vein. saphenous vein. Risk Factors History +---------+----+---- + !Diagnosis!Date!Comm ents ! +---------+----+---- + !DVT ! !LT leg 7 yrs ago ! +---------+----+---- + - The patient's risk factor(s) include: insulin-treated diabetes mellitus, dyslipidemia and arterial hypertension. - The patient's last creatinine was 0.8 mg/dl. Allergies - Allergy:Penicillin(D rug). Velocities are measured in cm/s ; Diameters are measured in cm Right Lower Extremities DVT Study Measurements Right 2D Measurements + +-- --------+ ----+ + !Location !Visualized!Compress ibility!Thrombosis! + +-- --------+ ----+ + !Common Femoral !Yes !Yes !None ! + +-- --------+ ----+ + !Prox Femoral !Yes !Yes !None ! + +-- --------+ ----+ + !Mid Femoral !Yes !Yes !None ! + +-- --------+ ----+ + !Dist Femoral !Yes !Yes !None ! + +-- --------+ ----+ + !Deep Femoral !Yes !Yes !None ! + +-- --------+ ----+ + !Popliteal !Yes !Yes !None ! + +-- --------+ ----+ + !Sapheno Femoral Junction !Yes !Yes !None ! + +-- --------+ ----+ + !PTV !Yes !Yes !None ! + +-- --------+ ----+ + !Peroneal !Yes !Yes !None ! + +-- --------+ ----+ + !Gastroc !Yes !Yes !None ! + +-- --------+ ----+ + !GSV Thigh !Yes !Yes !None ! + +-- --------+ ----+ + !GSV Knee !Yes !Yes !None ! + +-- --------+ ----+ + !GSV Ankle !Yes !Yes !None ! + +-- --------+ ----+ + !SSV !Yes !Yes !None ! + +-- --------+ ----+ + Right Doppler Measurements + --------+------+---- --+ + !Location !Signal!Reflux!Reflu x (msec) ! + --------+------+---- --+ + !Common Femoral !Phasic! ! ! + --------+------+---- --+ + !Prox Femoral !Phasic! ! ! + --------+------+---- --+ + !Popliteal !Phasic! ! ! + --------+------+---- --+ + Left Lower Extremities DVT Study Measurements Left 2D Measurements + +-- --------+ ----+ + !Location !Visualized!Compress ibility!Thrombosis! + +-- --------+ ----+ + !Common Femoral !Yes !Yes !None ! + +-- --------+ ----+ + !Prox Femoral !Yes !Yes !None ! + +-- --------+ ----+ + !Mid Femoral !Yes !Yes !None ! + +-- --------+ ----+ + !Dist Femoral !Yes !Yes !None ! + +-- --------+ ----+ + !Deep Femoral !Yes !Yes !None ! + +-- --------+ ----+ + !Popliteal !Yes !Yes !None ! + +-- --------+ ----+ + !Sapheno Femoral Junction !Yes !Yes !None ! + +-- --------+ ----+ + !PTV !Yes !Yes !None ! + +-- --------+ ----+ + !Peroneal !Yes !Yes !None ! + +-- --------+ ----+ + !Gastroc !Yes !Yes !None ! + +-- --------+ ----+ + !GSV Thigh !Yes !Yes !None ! + +-- --------+ ----+ + !GSV Knee !Yes !Yes !None ! + +-- --------+ ----+ + !GSV Ankle !Yes !Yes !None ! + +-- --------+ ----+ + !SSV !Yes !Yes !None ! + +-- --------+ ----+ + Left Doppler Measurements + --------+------+---- --+ + !Location !Signal!Reflux!Reflu x (msec) ! + --------+------+---- --+ + !Common Femoral !Phasic! ! ! + --------+------+---- --+ + !Prox Femoral !Phasic! ! ! + --------+------+---- --+ + !Popliteal !Phasic! ! ! + --------+------+---- --+ + [facility], [place] Basic Metabolic Panelon 10- Anion gap [Moles/Vol] 12 mmol/L 9 - 17 mmol/L [facility], [place] Bun/Cre Ratio NOT REPORTED [facility], [place] Calcium [Mass/Vol] 9.3 mg/dL 8.6 - 10. 4 mg/dL [facility] Chloride [Moles/Vol] 97 mmol/L Low 98 - 10 7 mmol/L [facility] CO2 [Moles/Vol] 26 mmol/L 20 - 31 mmol/L [facility] Creatinine [Mass/Vol] 0.76 mg/dL 0.7 - 1.2 mg/dL [facility] GFR >60 >60 mL/min [facility] [place] GFR Non- >60 >60 mL/min [facility] GFR/1.73 sq M predicted among non-blacks MDRD (S/P/Bld) [Vol rate/Area] NOT REPORTED [facility] GFR/1.73 sq M predicted among non-blacks MDRD (S/P/Bld) [Vol rate/Area] [place] Comment on above: Average GFR for 60-6 9 years old: 85 mL/min/1.73sq m Chronic Kidney Disease: <60 mL/min/1.73sq m Kidney failure: <15 mL/min/1.73sq m eGFR calculated using average adult body mass. Additional eGFR calculator available at: http://www.[employer]/multiple_crcl_2012.htm Glucose [Mass/Vol] 232 mg/dL High 70 - 99 mg/dL [place], [place] Potassium [Moles/Vol] 3.4 mmol/L Low 3.7 - 5.3 mmol/L [place] Sodium [Moles/Vol] 135 mmol/L 135 - 144 mmol/L [place] Urea nitrogen [Mass/Vol] 8 mg/dL 8 - 23 mg/dL [place] Basic Metabolic Profon 06-07 (cont.) Normal [facility] Comment on above: Result Comment: Aver age GFR for 60-69 years old: 85 mL/min/1.73sq m Chronic Kidney Disease: <60 mL/min/1.73sq m Kidney failure: <15 mL/min/1.73sq m eGFR calculated using average adult body mass. Additional eGFR calculator available at: http://www.[employer]/multiple_crcl_2012.htm Performed By: #### Dorian CURRAN #### [facility] [place], [place] [id number] Equal Opportunity Officer: Stas Irving MD Anion gap [Moles/Vol] 12 mmol/L Normal - [facility] Comment on above: Performed By: #### S MAGDY #### [facility] [address] [place], [place] [phone] Equal Opportunity Officer: Stas Irving MD Calcium [Mass/Vol] 9.3 mg/dL Normal 8.6-10.4 [facility] Comment on above: Performed By: #### S MAGDY #### [facility] [address] [place] [phone] Equal Opportunity Officer: Stas Irving MD Chloride [Moles/Vol] 97 mmol/L Low 98-107 [facility] Comment on above: Performed By: #### S TROKE #### [address] [address] Equal Opportunity Officer: Stas Irving MD CO2 [Moles/Vol] 26 mmol/L Normal 20-31 [facility] Comment on above: Performed By: #### S TROKE #### [address] [address] Equal Opportunity Officer: Stas Irving MD Creatinine [Mass/Vol] 0.76 mg/dL Normal 0.70-1.20 [facility] Comment on above: Performed By: #### S TROKE #### [address] [address] Equal Opportunity Officer: Stas Irving MD GFR, Amer >60 Normal >60 [facility] Comment on above: Performed By: #### S TROKE #### [address] [address] Equal Opportunity Officer: Stas Irving MD GFR,non Amer >60 Normal >60 [facility] Comment on above: Performed By: #### S TROKE #### [address] [address] Equal Opportunity Officer: Stas Irving MD Glucose [Mass/Vol] 232 mg/dL High 70-99 [facility] Comment on above: Performed By: #### S TROKE #### [address] [address] Equal Opportunity Officer: Stas Irving MD Potassium [Moles/Vol] 3.4 mmol/L Low 3.7-5.3 [facility] Comment on above: Performed By: #### S TROKE #### [address] [place] [address] Equal Opportunity Officer: Stas Irving MD Sodium [Moles/Vol] 135 mmol/L Normal 135-144 [facility] Comment on above: Performed By: #### S TROKE #### [facility] [address] [place] [address] Equal Opportunity Officer: Stas Irving MD Urea nitrogen [Mass/Vol] 8 mg/dL Normal 8- [facility] Comment on above: Performed By: #### S TROKE #### [facility] [address] [place] [address] Equal Opportunity Officer: Stas Irving MD BUN/CRE Ratio NOT REPORTED Normal - [facility] Comment on above: Performed By: #### S TROKE #### [facility] [employer] [facility] [place] [address] Equal Opportunity Officer: Stas Irving MD Staging: NOT REPORTED Normal [facility] Comment on above: Performed By: #### S TROKE #### [facility] [employer] [address] [place] [id number] Equal Opportunity Officer: Stas Irving MD CBC Auto Differentialon 05-22 Basophils (Bld) [#/Vol] 0.08 10*3/uL [place] Basophils/100 WBC (Bld) 1 % 0 - 2 % [place] Differential Type NOT REPORTED [place] Eosinophils (Bld) [#/Vol] 0.59 10*3/uL High [place] Eosinophils/100 WBC (Bld) 8 % High 1 - 4 % [place] Erythrocyte distribution width (RBC) [Ratio] 13.6 % 11.8 - 14.4 % [place] Hematocrit (Bld) [Volume fraction] 51.5 % High 40.7 - 50.3 % [place] Hemoglobin (Bld) [Mass/Vol] 16.7 g/dL 13 - 17 g/dL [place] Immature granulocytes (Bld) [#/Vol] 0 % 0 [place] Immature granulocytes (Bld) [#/Vol] 10*3/uL [place] Interpretation and review of laboratory results Abnormal [place] Lymphocytes (Bld) [#/Vol] 2.32 10*3/uL [place] Lymphocytes/100 WBC (Bld) 32 % 24 - 43 % [place] MCH (RBC) [Entitic mass] 28.2 pg 25.2 - 33.5 pg [place] MCHC (RBC) [Mass/Vol] 32.4 g/dL 28.4 - 34.8 g/dL [place] MCV (RBC) [Entitic vol] 86.8 fL 82.6 - 102.9 fL [place] Monocytes (Bld) [#/Vol] 0.66 10*3/uL [place] Monocytes/100 WBC (Bld) 9 % 3 - 12 % [place] Platelet mean volume (Bld) [Entitic vol] 10.9 fL 8.1 - 13.5 fL [place] Platelets (Bld) [#/Vol] 196 10*3/uL [place] Platelets (Bld) [#/Vol] NOT REPORTED [place] RBC (Bld) [#/Vol] 5.93 10*6/uL High 4.21 - 5.7 7 m/uL [place] RBC morphology finding Nom (Bld) NOT REPORTED [place] Segmented neutrophils/100 WBC (Bld) 50 % 36 - 65 % [place] Segs Absolute 3.69 [place] WBC (Bld) [#/Vol] 7.4 10*3/uL [place] WBC (Bld) [#/Vol] 0.0 10*3/uL 0.0 per 10 0 WBC [place] WBC Morphology NOT REPORTED [place] CBC with Diffon 06-07-2019 Abs. Basophil 0.08 k/uL Normal 0.00-0.20 [facility] Comment on above: Performed By: #### S MAGDY #### [address] [address] Equal Opportunity Officer: Stas Irving MD Abs.Imm.Granulocyte <0.03 Normal 0.00-0.30 [facility] Comment on above: Performed By: #### S MAGDY #### [place] [address] Equal Opportunity Officer: Stas Irving MD Abs.Neutrophil (Seg) 3.69 k/uL Normal 1.50-8.10 [facility] Comment on above: Performed By: #### S MAGDY #### [place] [address] Equal Opportunity Officer: Stas Irving MD Basophils/100 WBC (Bld) 1 % Normal 0-2 [facility] Comment on above: Performed By: #### S MAGDY #### [place] [address] Equal Opportunity Officer: Stas Irving MD Eosinophils (Bld) [#/Vol] 0.59 10*3/uL High 0.00-0.44 [facility] Comment on above: Performed By: #### S MAGDY #### [address] [address] Equal Opportunity Officer: Stas Irving MD Eosinophils/100 WBC (Bld) 8 % High 1-4 [facility] Comment on above: Performed By: #### S TOREYKE #### [place] [address] Equal Opportunity Officer: Stas Irving MD Erythrocyte distribution width (RBC) [Ratio] 13.6 % Normal 11.8-14.4 [facility] Comment on above: Performed By: #### S MAGDY #### [place] [address] Equal Opportunity Officer: Stas Irving MD Hematocrit (Bld) [Volume fraction] 51.5 % High 40.7-50.3 [facility] Comment on above: Performed By: #### S TROKE #### [address] [address] Equal Opportunity Officer: Stas Irving MD Hemoglobin (Bld) [Mass/Vol] 16.7 g/dL Normal 13.0-17.0 [facility] Comment on above: Performed By: #### S TOREYKE #### [address] [address] Equal Opportunity Officer: Stas Irving MD Immature granulocytes (Bld) [#/Vol] 0 % Normal 0 [facility] Comment on above: Performed By: #### S MAGDY #### [address] [address] Equal Opportunity Officer: Stas Irving MD Lymphocytes (Bld) [#/Vol] 2.32 10*3/uL Normal 1.10-3.70 [facility] Comment on above: Performed By: #### S TOREYKE #### [address] [address] Equal Opportunity Officer: Stas Irving MD Lymphocytes/100 WBC (Bld) 32 % Normal 24-43 [facility] Comment on above: Performed By: #### S TOREYKE #### [address] [address] Equal Opportunity Officer: Stas Irving MD MCH (RBC) [Entitic mass] 28.2 pg Normal 25.2-33.5 [facility] Comment on above: Performed By: #### S TROKE #### [address] [address] Equal Opportunity Officer: Stas Irving MD MCHC (RBC) [Mass/Vol] 32.4 g/dL Normal 28.4-34.8 [facility] Comment on above: Performed By: #### S TOREYKE #### [address] [address] Equal Opportunity Officer: Stas Irving MD MCV (RBC) [Entitic vol] 86.8 fL Normal 82.6-102.9 [facility] Comment on above: Performed By: #### S TROKE #### [place] [address] Equal Opportunity Officer: Stas Irving MD Monocytes (Bld) [#/Vol] 0.66 10*3/uL Normal 0.10-1.20 [facility] Comment on above: Performed By: #### S TOREYKE #### [place] [address] Equal Opportunity Officer: Stas Irving MD Monocytes/100 WBC (Bld) 9 % Normal 3-12 [facility] Comment on above: Performed By: #### S TOREYKE #### [place] [address] Equal Opportunity Officer: Stas Irving MD Neutrophil (Seg) 50 % Normal 36-65 [facility] Comment on above: Performed By: #### S TOREYKE #### [place] [address] Equal Opportunity Officer: Stas Irving MD NRBC Automated 0.0 per 100 WBC Normal 0.0 [facility] Comment on above: Performed By: #### S TOREYKE #### [place] [address] Equal Opportunity Officer: Stas Irving MD Platelet mean volume (Bld) [Entitic vol] 10.9 fL Normal 8.1-13.5 [facility] Comment on above: Performed By: #### S TROKE #### [address] [address] Equal Opportunity Officer: Stas Irving MD Platelets (Bld) [#/Vol] 196 10*3/uL Normal 138-453 [facility] Comment on above: Performed By: #### S TROKE #### [address] [address] Equal Opportunity Officer: Stas Irving MD RBC (Bld) [#/Vol] 5.93 10*6/uL High 4.21-5.77 [facility] Comment on above: Performed By: #### S TROKE #### [address] [address] Equal Opportunity Officer: Stas Irving MD WBC (Bld) [#/Vol] 7.4 10*3/uL Normal 3.5-11.3 [facility] Comment on above: Performed By: #### S TROKE #### [address] [address] Equal Opportunity Officer: Stas Irving MD Auto Diff Performed NOT REPORTED Normal [facility] Comment on above: Performed By: #### S TROKE #### [address] [address] Equal Opportunity Officer: Stas Irving MD Platelets (Bld) [#/Vol] NOT REPORTED Normal [facility] Comment on above: Performed By: #### S TROKE #### [address] [address] Equal Opportunity Officer: Stas Irving MD RBC morphology finding Nom (Bld) NOT REPORTED Normal [facility] Comment on above: Performed By: #### S TROKE #### [address] [address] Equal Opportunity Officer: Stas Irving MD WBC Morphology NOT REPORTED Normal [facility] Comment on above: Performed By: #### S TROKE #### [facility] [address] [place] [address] Equal Opportunity Officer: Stas Irving MD CT HEAD WO CONTRASTon [...] Randolph Bustos MD 06/06/19 Final result Normal [facility] MAGNESIUMon 06-07-2019 Magnesium [Mass/Vol] 1.9 mg/dL 1.6 - 2 .6 mg/dL [place] MRI BRAIN WO CONTRASTon 05-22 MRI BRAIN WO CONTRAST EXAMINATION: MRI OF THE BRAIN WITHOUT CONTRAST 06/07/2019 9:51 am TECHNIQUE: Multiplanar multisequence MRI of the brain was performed without the administration of intravenous contrast. COMPARISON: CT head on June 06, 2019. CTA head on June 05, 2019. HISTORY: ORDERING SYSTEM PROVIDED HISTORY: stroke FINDINGS: INTRACRANIAL STRUCTURES/VENTRICLE S: Small area of restricted diffusion within right [...] Cas Berger MD 06/07/19 Final result Normal [facility] MRI Brain WO Contraston 05-22 1. Small [...] 06/07/2019to be communicated to a licensed caregiver. [facility] [place] EXAMINATION: MRI OF THE BRAIN WITHOUT CONTRAST 06/07/2019 9:51 am TECHNIQUE: Multiplanar multisequence MRI of the brain was performed without the administration of intravenous contrast. COMPARISON: CT head on June 06, 2019. CTA head on June 05, 2019. HISTORY: ORDERING SYSTEM PROVIDED HISTORY: stroke FINDINGS: INTRACRANIAL STRUCTURES/VENTRICLE S: Small area of restricted diffusion within right [...] the left. BONES/SOFT TISSUES: No significant abnormalities. [facility] [place] Nav, [facility] Incoming Radiant Results From [employer] - 06/07/2019 11:19 AM EDT EXAMINATION: MRI OF THE BRAIN WITHOUT CONTRAST 06/07/2019 9:51 am TECHNIQUE: Multiplanar multisequence MRI of the brain was performed without the administration of intravenous contrast. COMPARISON: CT head on June 06, 2019. CTA head on June 05, 2019. HISTORY: ORDERING SYSTEM PROVIDED HISTORY: stroke FINDINGS: INTRACRANIAL STRUCTURES/VENTRICLE S: Small area of restricted diffusion within right [...] 06/07/2019to be communicated to a licensed caregiver. [place] Magnesiumon 06-07-2019 Magnesium [Mass/Vol] 1.9 mg/dL Normal 1.6-2.6 [facility] Comment on above: Performed By: #### S MAGDY #### [facility] [employer] [address] [place] [id number] Equal Opportunity Officer: Stas Irving MD Otheron 06-07-2019 Interpretation and review of laboratory results Abnormal [place] PHOSPHORUSon 06-07-2019 Phosphate [Mass/Vol] 5.4 mg/dL High 2.5 - 4 .5 mg/dL [place] POC Glucose Fingerstickon Glucose [Mass/Vol] 309 mg/dL High 75 - 110 mg/dL [place], [place] Interpretation and review of laboratory results Abnormal [place] Glucose [Mass/Vol] 330 mg/dL High 75 - 110 mg/dL [place] Interpretation and review of laboratory results Abnormal [place] Glucose [Mass/Vol] 251 mg/dL High 75 - 110 mg/dL [place] Interpretation and review of laboratory results Abnormal [place] Glucose [Mass/Vol] 273 mg/dL High 75 - 110 mg/dL [place] Interpretation and review of laboratory results Abnormal [place] Phosphorus, Inorg.on 019 Phosphorus, Inorg. 5.4 mg/dL High 2.5-4.5 [facility] Comment on above: Performed By: #### S TROKE #### [facility] [address] [place] [address] Equal Opportunity Officer: Stas Irving MD BASIC METABOLIC PANELon 05-22 Anion gap [Moles/Vol] 16 mmol/L 9 - 17 mmol/L [place] Bun/Cre Ratio NOT REPORTED [place] Calcium [Mass/Vol] 9.2 mg/dL 8.6 - 10. 4 mg/dL [place] Chloride [Moles/Vol] 101 mmol/L 98 - 10 7 mmol/L [place] CO2 [Moles/Vol] 20 mmol/L 20 - 31 mmol/L [place] Creatinine [Mass/Vol] 0.48 mg/dL Low 0.7 - 1.2 mg/dL [place] GFR >60 >60 mL/min [place] GFR Non- >60 >60 mL/min [place] GFR/1.73 sq M predicted among non-blacks MDRD (S/P/Bld) [Vol rate/Area] NOT REPORTED [place] GFR/1.73 sq M predicted among non-blacks MDRD (S/P/Bld) [Vol rate/Area] [place] Comment on above: Average GFR for 60-6 9 years old: 85 mL/min/1.73sq m Chronic Kidney Disease: <60 mL/min/1.73sq m Kidney failure: <15 mL/min/1.73sq m eGFR calculated using average adult body mass. Additional eGFR calculator available at: http://www.[employer]/multiple_crcl_2012.htm Glucose [Mass/Vol] 264 mg/dL High 70 - 99 mg/dL [place] Potassium [Moles/Vol] 3.9 mmol/L 3.7 - 5.3 mmol/L [place] Sodium [Moles/Vol] 137 mmol/L 135 - 144 mmol/L [place] Urea nitrogen [Mass/Vol] 5 mg/dL Low 8 - 23 mg/dL [place] Basic Metabolic Profon 06-06 (cont.) Normal [facility] Comment on above: Result Comment: Aver age GFR for 60-69 years old: 85 mL/min/1.73sq m Chronic Kidney Disease: <60 mL/min/1.73sq m Kidney failure: <15 mL/min/1.73sq m eGFR calculated using average adult body mass. Additional eGFR calculator available at: [email or web address] Performed By: #### C DP, BMP, LIPR, MG, CINTHYA, GLYHGB #### [employer] [address] [place] [address] Equal Opportunity Officer: Stas Irving MD Anion gap [Moles/Vol] 16 mmol/L Normal 9-17 [facility] Comment on above: Performed By: #### C DP, BMP, LIPR, MG, CINTHYA, GLYHGB #### [employer] [address] [place] [address] [phone] Equal Opportunity Officer: Stas Irving MD Calcium [Mass/Vol] 9.2 mg/dL Normal 8.6-10.4 [facility] Comment on above: Performed By: #### C DP, BMP, LIPR, MG, CINTHYA, GLYHGB #### [employer] [address] [place] [address] [phone] Equal Opportunity Officer: Stas Irving MD Chloride [Moles/Vol] 101 mmol/L Normal 98-107 [facility] Comment on above: Performed By: #### C DP, BMP, LIPR, MG, CINTHYA, GLYHGB #### [address] [address] Equal Opportunity Officer: Stas Irving MD CO2 [Moles/Vol] 20 mmol/L Normal 20-31 [facility] Comment on above: Performed By: #### C DP, BMP, LIPR, MG, CINTHYA, GLYHGB #### [address] [address] Equal Opportunity Officer: Stas Irving MD Creatinine [Mass/Vol] 0.48 mg/dL Low 0.70-1.20 [facility] Comment on above: Performed By: #### C DP, BMP, LIPR, MG, CINTHYA, GLYHGB #### [address] [address] Equal Opportunity Officer: Stas Irving MD GFR, Amer >60 Normal >60 [facility] Comment on above: Performed By: #### C DP, BMP, LIPR, MG, CINTHYA, GLYHGB #### [address] [address] Equal Opportunity Officer: Stas Irving MD GFR,non Amer >60 Normal >60 [facility] Comment on above: Performed By: #### C DP, BMP, LIPR, MG, CINTHYA, GLYHGB #### [address] [address] Equal Opportunity Officer: Stas Irving MD Glucose [Mass/Vol] 264 mg/dL High 70-99 [facility] Comment on above: Performed By: #### C DP, BMP, LIPR, MG, CINTHYA, GLYHGB #### [address] [address] Equal Opportunity Officer: Stas Irving MD Potassium [Moles/Vol] 3.9 mmol/L Normal 3.7-5.3 [facility] Comment on above: Performed By: #### C DP, BMP, LIPR, MG, CINTHYA, GLYHGB #### [facility] [place] [address] Equal Opportunity Officer: Stas Irving MD Sodium [Moles/Vol] 137 mmol/L Normal 135-144 [facility] Comment on above: Performed By: #### C DP, BMP, LIPR, MG, CINTHYA, GLYHGB #### [facility] [address] [place] [phone] Equal Opportunity Officer: Stas Irving MD Urea nitrogen [Mass/Vol] 5 mg/dL Low 8- [facility] Comment on above: Performed By: #### C DP, BMP, LIPR, MG, CINTHYA, GLYHGB #### [facility] [address] [place] [phone] Equal Opportunity Officer: Stas Irving MD BUN/CRE Ratio NOT REPORTED Normal 05-11 [facility] Comment on above: Performed By: #### C DP, BMP, LIPR, MG, CINTHYA, GLYHGB #### [facility] [address] [place] [phone] Equal Opportunity Officer: Stas Irving MD Staging: NOT REPORTED Normal [facility] Comment on above: Performed By: #### C DP, BMP, LIPR, MG, CINTHYA, GLYHGB #### [facility] [employer] [address] [place] [phone] Equal Opportunity Officer: Stas Irving MD CBC WITH AUTO DIFFERENTIALon 06-06-2019 Basophils (Bld) [#/Vol] 0.08 10*3/uL [place] Basophils/100 WBC (Bld) 1 % 0 - 2 % [place] Differential Type NOT REPORTED [place] Eosinophils (Bld) [#/Vol] 0.62 10*3/uL [place] Eosinophils/100 WBC (Bld) 9 % High 1 - 4 % [place] Erythrocyte distribution width (RBC) [Ratio] 13.8 % 11.8 - 14.4 % [place] Hematocrit (Bld) [Volume fraction] 49.9 % 40.7 - 50.3 % [place] Hemoglobin (Bld) [Mass/Vol] 16.4 g/dL 13 - 17 g/dL [place] Immature granulocytes (Bld) [#/Vol] 10*3/uL [place] Immature granulocytes (Bld) [#/Vol] 0 % 0 [place] Interpretation and review of laboratory results Abnormal [place] Lymphocytes (Bld) [#/Vol] 2.13 10*3/uL [place] Lymphocytes/100 WBC (Bld) 29 % 24 - 43 % [place] MCH (RBC) [Entitic mass] 28.6 pg 25.2 - 33.5 pg [place] MCHC (RBC) [Mass/Vol] 32.9 g/dL 28.4 - 34.8 g/dL [place] MCV (RBC) [Entitic vol] 86.9 fL 82.6 - 102.9 fL [place] Monocytes (Bld) [#/Vol] 0.62 10*3/uL [place] Monocytes/100 WBC (Bld) 9 % 3 - 12 % [place] Platelet mean volume (Bld) [Entitic vol] 10.1 fL 8.1 - 13.5 fL [place] Platelets (Bld) [#/Vol] 221 10*3/uL [place] Platelets (Bld) [#/Vol] NOT REPORTED [place] RBC (Bld) [#/Vol] 5.74 10*6/uL 4.21 - 5.7 7 m/uL [place] RBC morphology finding Nom (Bld) NOT REPORTED [place] Segmented neutrophils/100 WBC (Bld) 52 % 36 - 65 % [place] Segs Absolute 3.86 [place] WBC (Bld) [#/Vol] 0.0 10*3/uL 0.0 per 10 0 WBC [place] WBC (Bld) [#/Vol] 7.3 10*3/uL [place] WBC Morphology NOT REPORTED [place] CBC with Diffon 06-06-2019 Abs. Basophil 0.08 k/uL Normal 0.00-0.20 [facility] Comment on above: Performed By: #### C DP, BMP, LIPR, MG, CINTHYA, GLYHGB #### [facility] [employer] [address] [place] [phone] Equal Opportunity Officer: Stas Irving MD Abs.Imm.Granulocyte <0.03 Normal 0.00-0.30 [facility] Comment on above: Performed By: #### C DP, BMP, LIPR, MG, CINTHYA, GLYHGB #### [facility] [employer] [address] [place] [phone] Equal Opportunity Officer: Stas Irving MD Abs.Neutrophil (Seg) 3.86 k/uL Normal 1.50-8.10 [facility] Comment on above: Performed By: #### C DP, BMP, LIPR, MG, CINTHYA, GLYHGB #### [facility] [employer] [address] [place] [phone] Equal Opportunity Officer: Stas Irving MD Basophils/100 WBC (Bld) 1 % Normal 0-2 [facility] Comment on above: Performed By: #### C DP, BMP, LIPR, MG, CINTHYA, GLYHGB #### [facility] [employer] [address] [place] [phone] Equal Opportunity Officer: Stas Irving MD Eosinophils (Bld) [#/Vol] 0.62 10*3/uL High 0.00-0.44 [facility] Comment on above: Performed By: #### C DP, BMP, LIPR, MG, CINTHYA, GLYHGB #### [facility] [employer] [address] [place] [phone] Equal Opportunity Officer: Stas Irving MD Eosinophils/100 WBC (Bld) 9 % High 1-4 [facility] Comment on above: Performed By: #### C DP, BMP, LIPR, MG, CINTHYA, GLYHGB #### [facility] [employer] [address] [place] [phone] Equal Opportunity Officer: Stas Irving MD Erythrocyte distribution width (RBC) [Ratio] 13.8 % Normal 11.8-14.4 [facility] Comment on above: Performed By: #### C DP, BMP, LIPR, MG, CINTHYA, GLYHGB #### [facility] [address] [place] [phone] Equal Opportunity Officer: Stas Irving MD Hematocrit (Bld) [Volume fraction] 49.9 % Normal 40.7-50.3 [facility] Comment on above: Performed By: #### C DP, BMP, LIPR, MG, CINTHYA, GLYHGB #### [facility] [employer] [address] [place] [phone] Equal Opportunity Officer: Stas Irving MD Hemoglobin (Bld) [Mass/Vol] 16.4 g/dL Normal 13.0-17.0 [facility] Comment on above: Performed By: #### C DP, BMP, LIPR, MG, CINTHYA, GLYHGB #### [facility] [employer] [address] [place] [phone] Equal Opportunity Officer: Stas Irving MD Immature granulocytes (Bld) [#/Vol] 0 % Normal 0 [facility] Comment on above: Performed By: #### C DP, BMP, LIPR, MG, CINTHYA, GLYHGB #### [facility] [employer] [address] [place] [phone] Equal Opportunity Officer: Stas Irving MD Lymphocytes (Bld) [#/Vol] 2.13 10*3/uL Normal 1.10-3.70 [facility] Comment on above: Performed By: #### C DP, BMP, LIPR, MG, CINTHYA, GLYHGB #### [address] [address] Equal Opportunity Officer: Stas Irving MD Lymphocytes/100 WBC (Bld) 29 % Normal 24-43 [facility] Comment on above: Performed By: #### C DP, BMP, LIPR, MG, CINTHYA, GLYHGB #### [address] [phone] Equal Opportunity Officer: Stas Irving MD MCH (RBC) [Entitic mass] 28.6 pg Normal 25.2-33.5 [facility] Comment on above: Performed By: #### C DP, BMP, LIPR, MG, CINTHYA, GLYHGB #### [address] [address] Equal Opportunity Officer: Stas Irving MD MCHC (RBC) [Mass/Vol] 32.9 g/dL Normal 28.4-34.8 [facility] Comment on above: Performed By: #### C DP, BMP, LIPR, MG, CINTHYA, GLYHGB #### [address] [address] Equal Opportunity Officer: Stas Irving MD MCV (RBC) [Entitic vol] 86.9 fL Normal 82.6-102.9 [facility] Comment on above: Performed By: #### C DP, BMP, LIPR, MG, CINTHYA, GLYHGB #### [address] [address] Equal Opportunity Officer: Stas Irving MD Monocytes (Bld) [#/Vol] 0.62 10*3/uL Normal 0.10-1.20 [facility] Comment on above: Performed By: #### C DP, BMP, LIPR, MG, CINTHYA, GLYHGB #### [address] [address] Equal Opportunity Officer: Stas Irving MD Monocytes/100 WBC (Bld) 9 % Normal 3-12 [facility] Comment on above: Performed By: #### C DP, BMP, LIPR, MG, CINTHYA, GLYHGB #### [address] [address] Equal Opportunity Officer: Stas Irving MD Neutrophil (Seg) 52 % Normal 36-65 [facility] Comment on above: Performed By: #### C DP, BMP, LIPR, MG, CINTHYA, GLYHGB #### [address] [address] Equal Opportunity Officer: Stas Irving MD NRBC Automated 0.0 per 100 WBC Normal 0.0 [facility] Comment on above: Performed By: #### C DP, BMP, LIPR, MG, CINTHYA, GLYHGB #### [address] [address] Equal Opportunity Officer: Stas Irving MD Platelet mean volume (Bld) [Entitic vol] 10.1 fL Normal 8.1-13.5 [facility] Comment on above: Performed By: #### C DP, BMP, LIPR, MG, CINTHYA, GLYHGB #### [address] [address] Equal Opportunity Officer: Stas Irving MD Platelets (Bld) [#/Vol] 221 10*3/uL Normal 138-453 [facility] Comment on above: Performed By: #### C DP, BMP, LIPR, MG, CINTHYA, GLYHGB #### [address] [address] Equal Opportunity Officer: Stas Irving MD RBC (Bld) [#/Vol] 5.74 10*6/uL Normal 4.21-5.77 [facility] Comment on above: Performed By: #### C DP, BMP, LIPR, MG, CINTHYA, GLYHGB #### [address] [address] Equal Opportunity Officer: Stas Irving MD WBC (Bld) [#/Vol] 7.3 10*3/uL Normal 3.5-11.3 [facility] Comment on above: Performed By: #### C DP, BMP, LIPR, MG, CINTHYA, GLYHGB #### [address] [address] Equal Opportunity Officer: Stas Irving MD Auto Diff Performed NOT REPORTED Normal [facility] Comment on above: Performed By: #### C DP, BMP, LIPR, MG, CINTHYA, GLYHGB #### [address] [address] Equal Opportunity Officer: Stas Irving MD Platelets (Bld) [#/Vol] NOT REPORTED Normal [facility] Comment on above: Performed By: #### C DP, BMP, LIPR, MG, CINTHYA, GLYHGB #### [address] [address] Equal Opportunity Officer: Stas Irving MD RBC morphology finding Nom (Bld) NOT REPORTED Normal [facility] Comment on above: Performed By: #### C DP, BMP, LIPR, MG, CINTHYA, GLYHGB #### [address] [address] Equal Opportunity Officer: Stas Irving MD WBC Morphology NOT REPORTED Normal [facility] Comment on above: Performed By: #### C DP, BMP, LIPR, MG, CINTHYA, GLYHGB #### [address] [address] Equal Opportunity Officer: Stas Irving MD CT HEAD WO CONTRASTon [...] C Goyal MD 06/05/19 Final result Normal [facility] CT head without contraston 1 Nav, [facility] Incoming Radiant Results From [employer] - 06/06/2019 10:31 PM EDT EXAMINATION: CT [...] effect. 3. Redemonstration of multifocal remote infarcts. [place] EXAMINATION: CT OF THE HEAD WITHOUT [...] interface is intact. No acute intracranial hemorrhage. [facility] 1. No evidence of an acute evolving infarct. 2. No acute intracranial hemorrhage or global mass effect. 3. Redemonstration of multifocal remote infarcts. [facility] [place] CTA HEAD W CON AND CTA NECK [...] C Goyal MD 06/05/19 Final result Normal [facility] EKG 12 Leadon 06-06-2019 Atrial Rate 81 BPM [place] P [place] 67 degrees [facility], [place] P-R Interval 174 ms [place] Q-T Interval 378 ms [place] QRS Duration 90 ms [place] QTc Calculation (Bazett) 439 ms [facility], [place] R [place] -15 degrees [facility], [place] T [place] 24 degrees [facility], [place] Ventricular Rate 81 BPM [place], [place] Normal sinus rhythm Nonspecific T wave abnormality Abnormal ECG No previous ECGs available [place] Nav, [facility] Incoming Ekg Results From [facility] - 06/06/2019 9:23 AM EDT Normal sinus rhythm Nonspecific T wave abnormality Abnormal ECG No previous ECGs available [place] Hemoglobin A1Con 06-06-2019 HbA1c (Bld) [Mass fraction] 306 mg/dL Normal [facility] Comment on above: Result Comment: The ADA and AACC recommend providing the estimated average glucose result to permit better patient understanding of their HBA1c result. Performed By: #### C DP, BMP, LIPR, MG, CINTHYA, GLYHGB #### [facility] [employer] [address] [place], [place] [phone] Equal Opportunity Officer: Stas Irivng MD HbA1c (Bld) [Mass fraction] 12.3 % High 4.0-6.0 [facility] Comment on above: Performed By: #### C DP, BMP, LIPR, MG, CINTHYA, GLYHGB #### [facility] [employer] [address] [place], [place] [phone] Equal Opportunity Officer: Stas Irving MD Glucose [Mass/Vol] 306 mg/dL [place] Comment on above: The ADA and AACC rec ommend providing the estimated average glucose result to permit better patient understanding of their HBA1c result. HbA1c (Bld) [Mass fraction] 12.3 % High 4 - 6 % [place] Interpretation and review of laboratory results Abnormal [place] LIPID PANELon 06-06-2019 Cholesterol [Mass/Vol] 294 mg/dL High <200 [place] Comment on above: Cholesterol Guidelines: <200 Desirable 200-240 Borderline >240 Undesirable Cholesterol in HDL [Mass/Vol] 38 mg/dL Low >40 [place] Comment on above: HDL Guidelines: <40 Undesirable 40-59 Borderline >59 Desirable Cholesterol in LDL [Mass/Vol] 216 mg/dL High 0 - 130 mg/dL [place] Comment on above: LDL Guidelines: <100 Desirable 100-129 Near to/above Desirable 130-159 Borderline >159 Undesirable Direct (measured) LDL and calculated LDL are not interchangeable tests. Cholesterol in VLDL [Mass/Vol] NOT REPORTED High 1 - 30 mg/dL [place] Cholesterol.total/Cho lesterol in HDL [Mass ratio] 7.7 {ratio} High <5 [place] Triglyceride [Mass/Vol] 200 mg/dL High <150 [place] Comment on above: Triglyceride Guidelines: <150 Desirable 150-199 Borderline 200-499 High >499 Very high Based on AHA Guidelines for fasting triglyceride, May 2012. Lipid Profileon 06-06-2019 Cholesterol [Mass/Vol] 294 mg/dL High <200 [facility] Comment on above: Result Comment: Cholesterol Guidelines: <200 Desirable 200-240 Borderline >240 Undesirable Performed By: #### C DP, BMP, LIPR, MG, CINTHYA, GLYHGB #### [employer] [address] [place] [phone] Equal Opportunity Officer: Stas Irving MD Cholesterol in HDL [Mass/Vol] 38 mg/dL Low >40 [facility] Comment on above: Result Comment: HDL Guidelines: <40 Undesirable 40-59 Borderline >59 Desirable Performed By: #### C DP, BMP, LIPR, MG, CINTHYA, GLYHGB #### [employer] [address] [place] [address] [phone] Equal Opportunity Officer: Stas Irving MD Cholesterol in LDL [Mass/Vol] 216 mg/dL High 0-130 [facility] Comment on above: Result Comment: LDL Guidelines: <100 Desirable 100-129 Near to/above Desirable 130-159 Borderline >159 Undesirable Direct (measured) LDL and calculated LDL are not interchangeable tests. Performed By: #### C DP, BMP, LIPR, MG, CINTHYA, GLYHGB #### [employer] [address] [place] [phone] Equal Opportunity Officer: Stas Irving MD Cholesterol.total/Cho lesterol in HDL [Mass ratio] 7.7 {ratio} High <5 [facility] Comment on above: Performed By: #### C DP, BMP, LIPR, MG, CINTHYA, GLYHGB #### [employer] [address] [place] [phone] Equal Opportunity Officer: Stas Irving MD Triglyceride [Mass/Vol] 200 mg/dL High <150 [facility] Comment on above: Result Comment: Triglyceride Guidelines: <150 Desirable 150-199 Borderline 200-499 High >499 Very high Based on AHA Guidelines for fasting triglyceride, May 2012. Performed By: #### C DP, BMP, LIPR, MG, CINTHYA, GLYHGB #### [facility] [address] [place] [address] Equal Opportunity Officer: Stas Irving MD Cholesterol in VLDL [Mass/Vol] NOT REPORTED Normal 09-20 [facility] Comment on above: Performed By: #### C DP, BMP, LIPR, MG, CINTHYA, GLYHGB #### [facility] [address] [place] [address] Equal Opportunity Officer: Stas Irving MD MAGNESIUMon 06-06-2019 Magnesium [Mass/Vol] 2.0 mg/dL 1.6 - 2 .6 mg/dL [place] MRSA DNA Probe, Nasalon 05-22 MRSA, DNA, Nasal NEGATIVE: MRSA DNA not detected by nucleic acid amplification. NEGATIVE: MRSA DNA not detected by nucleic acid amplificati [place] Comment on above: Results should be used as an adjunct to nosocomial control efforts to identify patients needing enhanced precautions. The test is not intended to identify patients with staphylococcal infections. Results should not be used to guide or monitor treatment for MRSA infections. Specimen Description .NASAL SWAB [place], [place] MRSA, DNA, Nasalon 9 MRSA, DNA, Nasal NEGATIVE: MRSA DNA not detected by nucleic acid amplification. Normal NMRSAA [facility] Comment on above: Result Comment: Results should be used as an adjunct to nosocomial control efforts to identify patients needing enhanced precautions. The test is not intended to identify patients with staphylococcal infections. Results should not be used to guide or monitor treatment for MRSA infections. Performed By: #### S TROKE #### [facility] [address] [place] [address] Equal Opportunity Officer: Stas Irving MD Specimen Description .NASAL SWAB Normal [facility] Comment on above: Performed By: #### S TROKE #### [employer] [address] [place], [place] [phone] Equal Opportunity Officer: Stas Irving MD Magnesiumon 06-06-2019 Magnesium [Mass/Vol] 2.0 mg/dL Normal 1.6-2.6 [facility] Comment on above: Performed By: #### C DP, BMP, LIPR, MG, CINTHYA, GLYHGB #### [facility] [address] [place], [place] [phone] Equal Opportunity Officer: Stas Irving MD Otheron 06-06-2019 Interpretation and review of laboratory results Abnormal [place] PHOSPHORUSon 06-06-2019 Phosphate [Mass/Vol] 3.2 mg/dL 2.5 - 4 .5 mg/dL [place] POC Glucose Fingerstickon Glucose [Mass/Vol] 315 mg/dL High 75 - 110 mg/dL [place] Interpretation and review of laboratory results Abnormal [place] Glucose [Mass/Vol] 310 mg/dL High 75 - 110 mg/dL [place] Interpretation and review of laboratory results Abnormal [place] Glucose [Mass/Vol] 257 mg/dL High 75 - 110 mg/dL [place] Interpretation and review of laboratory results Abnormal [place] Glucose [Mass/Vol] 265 mg/dL High 75 - 110 mg/dL [place] Interpretation and review of laboratory results Abnormal [place] Glucose [Mass/Vol] 211 mg/dL High 75 - 110 mg/dL [place] Interpretation and review of laboratory results Abnormal [place] POCT glucoseon 06-06-2019 Glucose [Mass/Vol] 211 mg/dL [place] Interpretation and review of laboratory results Normal [place] Phosphorus, Inorg.on 019 Phosphorus, Inorg. 3.2 mg/dL Normal 2.5-4.5 [facility] Comment on above: Performed By: #### C DP, BMP, LIPR, MG, CINTHYA, GLYHGB #### [employer] [address] [place] [phone] Equal Opportunity Officer: Stas Irving MD Anion Gap (Calc) POCon 06-05 Anion gap [Moles/Vol] 10 mmol/L 7 - 16 mmol/L [place] CALCIUM, IONIC (POC)on 06-05 POC Ionized Calcium 1.18 mmol/L 1.15 - 1 .33 mmol/L [place] CHLORIDE (POC)on 06-05-2019 Chloride [Moles/Vol] 99 mmol/L 98 - 10 7 mmol/L [place] CT Head WO Contraston 2018 EXAMINATION: [...] of the visualized skull or soft tissues. [place] Nav, [facility] Incoming Radiant Results From [employer] - 06/05/2019 10:17 PM EDT EXAMINATION: CT [...] Discussed with Dr. Son at 10:14 p.m.. [place] No acute intracranial abnormality. 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 Pansinusitis. RECOMMENDATIONS: The findings were sent to the Radiology Results Communication Center at 10:13 pm on 06/05/2019to be communicated to a licensed caregiver. Discussed with Dr. Son at 10:14 p.m.. [place] CTA HEAD NECK W CONTRASTon 1 Nav, [facility] Incoming Radiant Results From [employer] - 06/05/2019 10:57 PM EDT EXAMINATION: CTA [...] discussed with Dr. Son at 10:50 p.m.. 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 Otherwise negative CTA of the head and neck. RECOMMENDATIONS: The findings were sent to the Radiology Results Communication Center at 10:48 pm on 06/05/2019to be communicated to a licensed caregiver. Case discussed with Dr. Son at 10:50 p.m.. [place] EXAMINATION: CTA OF THE HEAD AND [...] bilateral remote basal ganglia infarcts again noted. [place] Creatinine W/GFR Point of Ca re 06-05-2019 Creatinine [Mass/Vol] 0.77 mg/dL 0.51 - 1.19 mg/dL [place] GFR Non- >60 >60 mL/min [place] GFR/1.73 sq M predicted among non-blacks MDRD (S/P/Bld) [Vol rate/Area] mL/min/{1.73_m2} >60 mL/min [place] GFR/1.73 sq M predicted among non-blacks MDRD (S/P/Bld) [Vol rate/Area] [place] Comment on above: Average GFR for 60-6 9 years old: 85 mL/min/1.73sq m Chronic Kidney Disease: <60 mL/min/1.73sq m Kidney failure: <15 mL/min/1.73sq m eGFR calculated using average adult body mass. Additional eGFR calculator available at: [email or web address]_[email or web address] Hemoglobin and hematocrit, b sierra 06-05-2019 Hematocrit (Bld) [Volume fraction] 47 % 41 - 53 % [place] Hemoglobin (Bld) [Mass/Vol] 16.0 g/dL 13.5 - 17.5 g/dL [place] Lactic Acid, POCon 9 POC Lactic Acid 1.62 mmol/L High 0.56 - 1.39 mmol/L [place] Otheron 06-05-2019 Interpretation and review of laboratory results Abnormal [place] POC Glucose Fingerstickon Glucose [Mass/Vol] 315 mg/dL High 75 - 110 mg/dL [place] Interpretation and review of laboratory results Abnormal [place] POCT Glucoseon 06-05-2019 Glucose [Mass/Vol] 344 mg/dL High 74 - 100 mg/dL [place] POTASSIUM (POC)on 06-05-2019 Potassium [Moles/Vol] 3.9 mmol/L 3.5 - 4.5 mmol/L [place] SODIUM (POC)on 06-05-2019 Sodium [Moles/Vol] 136 mmol/L Low 138 - 146 mmol/L [place] STROKE PANELon 06-05-2019 % CKMB 2.4 % 0 - 3.5 % [place] Anion gap [Moles/Vol] 12 mmol/L 9 - 17 mmol/L [place] aPTT Coag (Bld) [Time] 26.4 s [place] Basophils (Bld) [#/Vol] 0.06 10*3/uL [place] Basophils/100 WBC (Bld) 1 % 0 - 2 % [place] Bun/Cre Ratio NOT REPORTED [place] Calcium [Mass/Vol] 9.7 mg/dL 8.6 - 10. 4 mg/dL [place] Chloride [Moles/Vol] 98 mmol/L 98 - 10 7 mmol/L [place] CK.MB [Mass/Vol] NORMAL ISOENZYME PATTERN [place] CK.MB [Mass/Vol] 3.3 ng/mL <10.5 [place] CO2 [Moles/Vol] 25 mmol/L 20 - 31 mmol/L [place] Creatinine [Mass/Vol] 0.83 mg/dL 0.7 - 1.2 mg/dL [place] Differential Type NOT REPORTED [place] Eosinophils (Bld) [#/Vol] 0.46 10*3/uL [place] Eosinophils/100 WBC (Bld) 6 % High 1 - 4 % [place] Erythrocyte distribution width (RBC) [Ratio] 13.7 % 11.8 - 14.4 % [place] GFR >60 >60 mL/min [place] GFR Non- >60 >60 mL/min [place] GFR/1.73 sq M predicted among non-blacks MDRD (S/P/Bld) [Vol rate/Area] NOT REPORTED [place] GFR/1.73 sq M predicted among non-blacks MDRD (S/P/Bld) [Vol rate/Area] [place] Comment on above: Average GFR for 60-6 9 years old: 85 mL/min/1.73sq m Chronic Kidney Disease: <60 mL/min/1.73sq m Kidney failure: <15 mL/min/1.73sq m eGFR calculated using average adult body mass. Additional eGFR calculator available at: http://www.Let it Wave.[employer]/multiple_crcl_2012.htm Glucose [Mass/Vol] 353 mg/dL High 70 - 99 mg/dL [place] Hematocrit (Bld) [Volume fraction] 47.2 % 40.7 - 50.3 % [place] Hemoglobin (Bld) [Mass/Vol] 15.6 g/dL 13 - 17 g/dL [place] Immature granulocytes (Bld) [#/Vol] 0.03 10*3/uL [place] Immature granulocytes (Bld) [#/Vol] 0 % 0 [place] INR Coag (PPP) [Relative time] 1.2 {INR} [place] Comment on above: Therapeutic Range: Moderate Anticoagulant Intensity: INR = 2.0-3.0 High Anticoagulant Intensity: INR = 2.5-3.5 Interpretation and review of laboratory results Abnormal [place] Lymphocytes (Bld) [#/Vol] 2.54 10*3/uL [place] Lymphocytes/100 WBC (Bld) 32 % 24 - 43 % [place] MCH (RBC) [Entitic mass] 28.5 pg 25.2 - 33.5 pg [place] MCHC (RBC) [Mass/Vol] 33.1 g/dL 28.4 - 34.8 g/dL [place] MCV (RBC) [Entitic vol] 86.1 fL 82.6 - 102.9 fL [place] Monocytes (Bld) [#/Vol] 0.69 10*3/uL [place] Monocytes/100 WBC (Bld) 9 % 3 - 12 % [place] Myoglobin [Mass/Vol] 24 ng/mL Low 28 - 72 ng/mL [place] Platelet mean volume (Bld) [Entitic vol] 11.3 fL 8.1 - 13.5 fL [place] Platelets (Bld) [#/Vol] 201 10*3/uL [place] Platelets (Bld) [#/Vol] NOT REPORTED [place] Potassium [Moles/Vol] 4.1 mmol/L 3.7 - 5.3 mmol/L [place] PT Coag (PPP) [Time] 12.1 s [place] RBC (Bld) [#/Vol] 5.48 10*6/uL 4.21 - 5.7 7 m/uL [place] RBC morphology finding Nom (Bld) NOT REPORTED [place] Segmented neutrophils/100 WBC (Bld) 52 % 36 - 65 % [place] Segs Absolute 4.20 [place] Sodium [Moles/Vol] 135 mmol/L 135 - 144 mmol/L [place] Total CK 138 U/L 39 - 308 U/L [place] Troponin I.cardiac [Mass/Vol] NOT REPORTED [place] Troponin T.cardiac [Mass/Vol] NOT REPORTED <0.03 ng/mL [place] Troponin, High Sensitivity 17 ng/L 0 - 22 ng/L [place] Comment on above: High Sensitivity Troponin values cannot be compared with other Troponin methodologies. Patients with high levels of Biotin oral intake (i.e >5mg/day) may have falsely decreased Troponin levels. Samples collected within 8 hours of biotin intake may require additional information for diagnosis. Urea nitrogen [Mass/Vol] 8 mg/dL 8 - 23 mg/dL [place] WBC (Bld) [#/Vol] 0.0 10*3/uL 0.0 per 10 0 WBC [place] WBC (Bld) [#/Vol] 8.0 10*3/uL [place] WBC Morphology NOT REPORTED [place] Stroke Panelon 06-05-2019 % CKMB 2.4 % Normal 0.0-3.5 [facility] Comment on above: Performed By: #### S TROKE #### [facility] [employer] [address] [place] [address] [phone] Equal Opportunity Officer: Stas Irving MD Anion gap [Moles/Vol] 12 mmol/L Normal 9-17 [facility] Comment on above: Performed By: #### S TROKE #### [facility] [employer] [address] [place], [place] [phone] Equal Opportunity Officer: Stas Irving MD Calcium [Mass/Vol] 9.7 mg/dL Normal 8.6-10.4 [facility] Comment on above: Performed By: #### S TROKE #### [facility] [employer] [address] [place] [phone] Equal Opportunity Officer: Stas Irving MD Chloride [Moles/Vol] 98 mmol/L Normal 98-107 [facility] Comment on above: Performed By: #### S TOREYKE #### [address] [address] Equal Opportunity Officer: Stas Irving MD CK [Catalytic activity/Vol] 138 U/L Normal 39-308 [facility] Comment on above: Performed By: #### S TOREYKE #### [address] [address] Equal Opportunity Officer: Stas Irving MD CK.MB [Mass/Vol] NORMAL ISOENZYME PATTERN Normal [facility] Comment on above: Performed By: #### S TOREYKE #### [address] [address] Equal Opportunity Officer: Stas Irving MD CO2 [Moles/Vol] 25 mmol/L Normal 20-31 [facility] Comment on above: Performed By: #### S TOREYKE #### [address] [address] Equal Opportunity Officer: Stas Irving MD Creatinine [Mass/Vol] 0.83 mg/dL Normal 0.70-1.20 [facility] Comment on above: Performed By: #### S OTREYKE #### [address] [address] Equal Opportunity Officer: Stas Irving MD GFR, Amer >60 Normal >60 [facility] Comment on above: Performed By: #### S TROKE #### [address] [address] Equal Opportunity Officer: Stas Irving MD GFR,non Amer >60 Normal >60 [facility] Comment on above: Performed By: #### S TOREYKE #### [address] [address] Equal Opportunity Officer: Stas Irving MD Glucose [Mass/Vol] 353 mg/dL High 70-99 [facility] Comment on above: Performed By: #### S TOREYKE #### [facility] [place] [address] Equal Opportunity Officer: Stas Irving MD Potassium [Moles/Vol] 4.1 mmol/L Normal 3.7-5.3 [facility] Comment on above: Performed By: #### S TOREYKE #### [facility] [address] [place] [phone] Equal Opportunity Officer: Stas Irving MD Sodium [Moles/Vol] 135 mmol/L Normal 135-144 [facility] Comment on above: Performed By: #### S MAGDY #### [facility] [employer] [address] [place] [phone] Equal Opportunity Officer: Stas Irving MD Urea nitrogen [Mass/Vol] 8 mg/dL Normal 8-23 [facility] Comment on above: Performed By: #### S MAGDY #### [address] [address] Equal Opportunity Officer: Stas Irving MD [facility] Comment on above: Result Comment: Aver age GFR for 60-69 years old: 85 mL/min/1.73sq m Chronic Kidney Disease: <60 mL/min/1.73sq m Kidney failure: <15 mL/min/1.73sq m eGFR calculated using average adult body mass. Additional eGFR calculator available at: http://www.Let it [employer].com/multiple_crcl_2012.htm Performed By: #### S MAGDY #### [facility] [address] [place] [phone] Equal Opportunity Officer: Stas Irving MD CK-MB,Quantitative 3.3 ng/mL Normal <10.5 [facility] Comment on above: Performed By: #### S MAGDY #### [facility] [address] [place] [phone] Equal Opportunity Officer: Stas Irving MD Myoglobin [Mass/Vol] 24 ng/mL Low 28-72 [facility] Comment on above: Performed By: #### S TOREYKE #### [facility] [address] [place] [phone] Equal Opportunity Officer: Stas Irving MD Troponin, High Sens 17 ng/L Normal 0-22 [facility] Comment on above: Result Comment: High Sensitivity Troponin values cannot be compared with other Troponin methodologies. Patients with high levels of Biotin oral intake (i.e >5mg/day) may have falsely decreased Troponin levels. Samples collected within 8 hours of biotin intake may require additional information for diagnosis. Performed By: #### S MAGDY #### [facility] [employer] [address] [place] [phone] Equal Opportunity Officer: Stas Irving MD aPTT Coag (Bld) [Time] 26.4 s Normal 20.5-30.5 [facility] Comment on above: Performed By: #### S MAGDY #### [facility] [address] [place] [phone] Equal Opportunity Officer: Stas Irving MD INR Coag (PPP) [Relative time] 1.2 {INR} Normal [facility] Comment on above: Result Comment: Therapeutic Range: Moderate Anticoagulant Intensity: INR = 2.0-3.0 High Anticoagulant Intensity: INR = 2.5-3.5 Performed By: #### S TOREYKE #### [facility] [address] [place] [phone] Equal Opportunity Officer: Stas Irving MD PT Coag (PPP) [Time] 12.1 s High 9.0-12.0 [facility] Comment on above: Performed By: #### S TOREYKE #### [facility] [address] [place] [phone] Equal Opportunity Officer: Stas Irving MD Abs. Basophil 0.06 k/uL Normal 0.00-0.20 [facility] Comment on above: Performed By: #### S MAGDY #### [place] [address] Equal Opportunity Officer: Stas Irving MD Abs.Imm.Granulocyte 0.03 k/uL Normal 0.00-0.30 [facility] Comment on above: Performed By: #### S MAGDY #### [place] [address] Equal Opportunity Officer: Stas Irving MD Abs.Neutrophil (Seg) 4.20 k/uL Normal 1.50-8.10 [facility] Comment on above: Performed By: #### S MAGDY #### [place] [address] Equal Opportunity Officer: Stas Irving MD Basophils/100 WBC (Bld) 1 % Normal 0-2 [facility] Comment on above: Performed By: #### S MAGDY #### [place] [address] Equal Opportunity Officer: Stas Irving MD Eosinophils (Bld) [#/Vol] 0.46 10*3/uL High 0.00-0.44 [facility] Comment on above: Performed By: #### S MAGDY #### [place] [address] Equal Opportunity Officer: Stas Irving MD Eosinophils/100 WBC (Bld) 6 % High 1-4 [facility] Comment on above: Performed By: #### S MAGDY #### [place] [address] Equal Opportunity Officer: Stas Irving MD Erythrocyte distribution width (RBC) [Ratio] 13.7 % Normal 11.8-14.4 [facility] Comment on above: Performed By: #### S MAGDY #### [address] [address] Equal Opportunity Officer: Stas Irving MD Hematocrit (Bld) [Volume fraction] 47.2 % Normal 40.7-50.3 [facility] Comment on above: Performed By: #### S TROKE #### [address] [address] Equal Opportunity Officer: Stas Irving MD Hemoglobin (Bld) [Mass/Vol] 15.6 g/dL Normal 13.0-17.0 [facility] Comment on above: Performed By: #### S TROKE #### [address] [address] Equal Opportunity Officer: Stas Irving MD Immature granulocytes (Bld) [#/Vol] 0 % Normal 0 [facility] Comment on above: Performed By: #### S TROKE #### [address] [address] Equal Opportunity Officer: Stas Irving MD Lymphocytes (Bld) [#/Vol] 2.54 10*3/uL Normal 1.10-3.70 [facility] Comment on above: Performed By: #### S TROKE #### [address] [address] Equal Opportunity Officer: Stas Irving MD Lymphocytes/100 WBC (Bld) 32 % Normal 24-43 [facility] Comment on above: Performed By: #### S TROKE #### [address] [address] Equal Opportunity Officer: Stas Irving MD MCH (RBC) [Entitic mass] 28.5 pg Normal 25.2-33.5 [facility] Comment on above: Performed By: #### S TROKE #### [address] [address] Equal Opportunity Officer: Stas Irving MD MCHC (RBC) [Mass/Vol] 33.1 g/dL Normal 28.4-34.8 [facility] Comment on above: Performed By: #### S MAGDY #### [address] [address] Equal Opportunity Officer: Stas Irving MD MCV (RBC) [Entitic vol] 86.1 fL Normal 82.6-102.9 [facility] Comment on above: Performed By: #### S MAGDY #### [address] [address] Equal Opportunity Officer: Stas Irving MD Monocytes (Bld) [#/Vol] 0.69 10*3/uL Normal 0.10-1.20 [facility] Comment on above: Performed By: #### S MAGDY #### [place] [address] Equal Opportunity Officer: Stas Irving MD Monocytes/100 WBC (Bld) 9 % Normal 3-12 [facility] Comment on above: Performed By: #### S MAGDY #### [address] [address] Equal Opportunity Officer: Stas Irving MD Neutrophil (Seg) 52 % Normal 36-65 [facility] Comment on above: Performed By: #### S MAGDY #### [place] [address] Equal Opportunity Officer: Stas Irving MD NRBC Automated 0.0 per 100 WBC Normal 0.0 [facility] Comment on above: Performed By: #### S MAGDY #### [address] [address] Equal Opportunity Officer: Stas Irving MD Platelet mean volume (Bld) [Entitic vol] 11.3 fL Normal 8.1-13.5 [facility] Comment on above: Performed By: #### S TROKE #### [address] [address] Equal Opportunity Officer: Stas Irving MD Platelets (Bld) [#/Vol] 201 10*3/uL Normal 138-453 [facility] Comment on above: Performed By: #### S TROKE #### [address] [address] Equal Opportunity Officer: Stas Irving MD RBC (Bld) [#/Vol] 5.48 10*6/uL Normal 4.21-5.77 [facility] Comment on above: Performed By: #### S TROKE #### [address] [address] Equal Opportunity Officer: Stas Irving MD WBC (Bld) [#/Vol] 8.0 10*3/uL Normal 3.5-11.3 [facility] Comment on above: Performed By: #### S TROKE #### [address] [address] Equal Opportunity Officer: Stas Irving MD Auto Diff Performed NOT REPORTED Normal [facility] Comment on above: Performed By: #### S TROKE #### [address] [address] Equal Opportunity Officer: Stas Irving MD BUN/CRE Ratio NOT REPORTED Normal 9-20 [facility] Comment on above: Performed By: #### S TROKE #### [address] [address] Equal Opportunity Officer: Stas Irving MD Platelets (Bld) [#/Vol] NOT REPORTED Normal [facility] Comment on above: Performed By: #### S TROKE #### [address] [address] Equal Opportunity Officer: Stas Irving MD RBC morphology finding Nom (Bld) NOT REPORTED Normal [facility] Comment on above: Performed By: #### S TROKE #### [facility] [place] [address] Equal Opportunity Officer: Stas Irving MD Staging: NOT REPORTED Normal [facility] Comment on above: Performed By: #### S TROKE #### [facility] [place] [address] Equal Opportunity Officer: Stas Irving MD Troponin I.cardiac [Mass/Vol] NOT REPORTED Normal [facility] Comment on above: Performed By: #### S TROKE #### [facility] [employer] [address] [place] [phone] Equal Opportunity Officer: Stas Irving MD Troponin T.cardiac [Mass/Vol] NOT REPORTED Normal <0.03 [facility] Comment on above: Performed By: #### S TROKE #### [facility] [address] [place] [phone] Equal Opportunity Officer: Stas Irving MD WBC Morphology NOT REPORTED Normal [facility] Comment on above: Performed By: #### S TROKE #### [facility] [address] [place] [address] Equal Opportunity Officer: Stas Irving MD Venous Blood Gas, POCon 05-22 [place] Test NOT REPORTED [facility], [place] aPTT Coag (Bld) [Time] NOT REPORTED [facility], [place] FIO2 NOT REPORTED [facility], [place] HCO3, Venous 27.3 mmol/L 22 - 29 mmol/L [facility] [place], [place] Mode NOT REPORTED [facility] - [place], [place] Negative Base Excess, Kody NOT REPORTED [facility] [place], [place] O2 Device/Flow/% NOT REPORTED [facility], [place] Oxygen saturation in Blood 67 % 60 - 85 % [facility], [place] pCO2, Kody 41.3 [facility] [place], [place] pH, Kody 7.428 [facility], [place] pO2, Kody 33.8 [place] POC pCO2 Temp NOT REPORTED mm Hg [facility] [place] POC pH Temp NOT REPORTED [place] P[place] pO2 Temp NOT REPORTED mm Hg [place] Positive Base Excess, Kody 3 [place] Sample Site NOT REPORTED [place] Total CO2, Venous 29 mmol/L 23 - 30 mmol/L [place] XR CHEST PORTABLEon 06-05-20 XR CHEST [...] C Goyal MD 06/05/19 Final result Normal [facility] EXAMINATION: ONE XRAY VIEW OF THE CHEST 06/05/2019 9:01 pm COMPARISON: None. HISTORY: ORDERING SYSTEM PROVIDED HISTORY: CVA TECHNOLOGIST PROVIDED HISTORY: CVA Reason for Exam: stroke upright port FINDINGS: The lungs are without acute focal process. There is no effusion or pneumothorax. The cardiomediastinal silhouette is without acute process. The osseous structures are without acute process. [place] Nav, Mhpn Incoming Radiant Results From [employer] - 06/05/2019 9:43 PM EDT EXAMINATION: ONE [...] without acute process. IMPRESSION: No acute process. [place] No acute process. [facility] [place] Vital Signs Date Time Vital Sign Value Performing Clinician Facility 04-09-2025 10:09-0400 Body height 182.9 cm Adilson Salazar MD Work Phone: [facility] 04-09-2025 10:09-0400 Body mass index (BMI) [Ratio] 30.65 kg/m2 Adilson Salazar MD Work Phone: [facility] 04-09-2025 10:09-0400 Body temperature 96.21 [degF] Adilson Salazar MD Work Phone: [facility] 04-09-2025 10:09-0400 Body weight 102.51 kg Adilson Salazar MD Work Phone: [facility] 04-09-2025 10:09-0400 Diastolic blood pressure 82 mm[Hg] Adilson Salazar MD Work Phone: [facility] 04-09-2025 10:09-0400 Heart rate 84 /min Adilson Salazar MD Work Phone: [facility] 04-09-2025 10:09-0400 Respiratory rate 20 /min Adilson Salazar MD Work Phone: [facility] 04-09-2025 10:09-0400 SaO2% (BldA) [Mass fraction] 98 % Adilson Salazar MD Work Phone: [facility] 04-09-2025 10:09-0400 Systolic blood pressure 158 mm[Hg] Adilson Salazar MD Work Phone: [facility] 01-16-2025 13:24-0400 Body height 182.9 cm Adilson Salazar MD Work Phone: [facility] 01-16-2025 13:24-0400 Body mass index (BMI) [Ratio] 31.33 kg/m2 Adilson Salazar MD Work Phone: [facility] 01-16-2025 13:24-0400 Body temperature 97.11 [degF] Adilson Salazar MD Work Phone: [facility] 01-16-2025 13:24-0400 Body weight 104.78 kg Adilson Salazar MD Work Phone: [facility] 01-16-2025 13:24-0400 Diastolic blood pressure 84 mm[Hg] Adilson Salazar MD Work Phone: [facility] 01-16-2025 13:24-0400 Heart rate 81 /min Adilson Salazar MD Work Phone: [facility] 01-16-2025 13:24-0400 Respiratory rate 18 /min Adilson Salazar MD Work Phone: [facility] 01-16-2025 13:24-0400 SaO2% (BldA) [Mass fraction] 97 % Adilson Salazar MD Work Phone: [facility] 01-16-2025 13:24-0400 Systolic blood pressure 168 mm[Hg] Adilson Salazar MD Work Phone: [facility] 10-16-2024 14:40-0500 Body mass index (BMI) [Ratio] 31.38 kg/m2 Adilson Salazar MD Work Phone: [facility] 10-16-2024 14:40-0500 Body temperature 98.1 [degF] Adilson Salazar MD Work Phone: [facility] 10-16-2024 14:40-0500 Body weight 104.96 kg Adilson Salazar MD Work Phone: [facility] 10-16-2024 14:40-0500 Diastolic blood pressure 78 mm[Hg] Adilson Salazar MD Work Phone: [facility] 10-16-2024 14:40-0500 Heart rate 79 /min Adilson Salazar MD Work Phone: [facility] 10-16-2024 14:40-0500 SaO2% (BldA) [Mass fraction] 96 % Adilson Salazar MD Work Phone: [facility] 10-16-2024 14:40-0500 Systolic blood pressure 152 mm[Hg] Adilson Salazar MD Work Phone: [facility] 07-02-2024 14:25-0500 Body height 182.9 cm Adilson Salazar MD Work Phone: [facility] 07-02-2024 14:25-0500 Body mass index (BMI) [Ratio] 33.23 kg/m2 Adilson Salazar MD Work Phone: [facility] 07-02-2024 14:25-0500 Body temperature 96.21 [degF] Adilson Salazar MD Work Phone: [facility] 07-02-2024 14:25-0500 Body weight 111.13 kg Adilson Salazar MD Work Phone: [facility] 07-02-2024 14:25-0500 Diastolic blood pressure 98 mm[Hg] Adilson Salazar MD Work Phone: [facility] 07-02-2024 14:25-0500 Heart rate 91 /min Adilson Salazar MD Work Phone: [facility] 07-02-2024 14:25-0500 Respiratory rate 20 /min Adilson Salazar MD Work Phone: [facility] 07-02-2024 14:25-0500 SaO2% (BldA) [Mass fraction] 95 % Adilson Salazar MD Work Phone: [facility] 07-02-2024 14:25-0500 Systolic blood pressure 200 mm[Hg] Adilson Salazar MD Work Phone: [facility] 05-18-2024 10:12-0400 Body height 182.9 cm Adilson Salazar MD Work Phone: [facility] 05-18-2024 10:12-0400 Body mass index (BMI) [Ratio] 31.46 kg/m2 Adilson Salazar MD Work Phone: [facility] 05-18-2024 10:12-0400 Body temperature 96.6 [degF] Adilson Salazar MD Work Phone: [facility] 05-18-2024 10:12-0400 Body weight 105.23 kg Adilson Salazar MD Work Phone: [facility] 05-18-2024 10:12-0400 Diastolic blood pressure 74 mm[Hg] Adilson Salazar MD Work Phone: [facility] 05-18-2024 10:12-0400 Heart rate 90 /min Adilson Salazar MD Work Phone: [facility] 05-18-2024 10:12-0400 Respiratory rate 18 /min Adilson Salazar MD Work Phone: [facility] 05-18-2024 10:12-0400 SaO2% (BldA) [Mass fraction] 95 % Adilson Salazar MD Work Phone: [facility] 05-18-2024 10:12-0400 Systolic blood pressure 136 mm[Hg] Adilson Salazar MD Work Phone: [facility] 05-02-2024 13:17-0400 Body height 182.9 cm Adilson Salazar MD Work Phone: [facility] 05-02-2024 13:17-0400 Body mass index (BMI) [Ratio] 33.63 kg/m2 Adilson Salazar MD Work Phone: [facility] 05-02-2024 13:17-0400 Body temperature 97.5 [degF] Adilson Salazar MD Work Phone: [facility] 05-02-2024 13:17-0400 Body weight 112.49 kg Adilson Salazar MD Work Phone: [facility] 05-02-2024 13:17-0400 Diastolic blood pressure 64 mm[Hg] Adilson Salazar MD Work Phone: [facility] 05-02-2024 13:17-0400 Heart rate 78 /min Adilson Salazar MD Work Phone: [facility] 05-02-2024 13:17-0400 Respiratory rate 20 /min Adilson Salazar MD Work Phone: [facility] 05-02-2024 13:17-0400 SaO2% (BldA) [Mass fraction] 96 % Adilson Salazar MD Work Phone: [facility] 05-02-2024 13:17-0400 Systolic blood pressure 170 mm[Hg] Adilson Salazar MD Work Phone: [facility] 02-02-2023 10:20-0400 Blood Pressure Location Milvia Lue [facility] 02-02-2023 10:20-0400 Diastolic blood pressure 82 mm[Hg] Milvia Lue [facility] 02-02-2023 10:20-0400 Heart rate 72 /min Milvia Lue [facility] 02-02-2023 10:20-0400 Systolic blood pressure 132 mm[Hg] Milvia Lue [facility] 11-03-2022 08:12-0400 Blood Pressure Location Milvia Lue [facility] 11-03-2022 08:12-0400 Diastolic blood pressure 81 mm[Hg] Milvia Lue [facility] 11-03-2022 08:12-0400 Heart rate 77 /min Milvia Lue [facility] 11-03-2022 08:12-0400 Systolic blood pressure 131 mm[Hg] Milvia Lue [facility] 08-04-2022 08:56-0500 Blood Pressure Location Milvia Lue [facility] 08-04-2022 08:56-0500 Diastolic blood pressure 90 mm[Hg] Milvia Lue [facility] 08-04-2022 08:56-0500 Heart rate 78 /min Milvia Lue [facility] 08-04-2022 08:56-0500 Respiratory rate 16 /min Milvia Lue [facility] 08-04-2022 08:56-0500 Systolic blood pressure 140 mm[Hg] Milvia Lue [facility] 07-06-2022 17:09-0500 Body temperature 97.88 [degF] Milvia Lue [facility] 07-06-2022 17:09-0500 Diastolic blood pressure 88 mm[Hg] Milvia Lue [facility] 07-06-2022 17:09-0500 Heart rate 80 /min Milvia Lue [facility] 07-06-2022 17:09-0500 Mean blood pressure 114 mm[Hg] Milvia Lue [facility] 07-06-2022 17:09-0500 Respiratory rate 16 /min Milvia Lue [facility] 07-06-2022 17:09-0500 SaO2% (BldA) [Mass fraction] 98 % Milvia Lue [facility] 07-06-2022 17:09-0500 Systolic blood pressure 165 mm[Hg] Milvia Lue [facility] 07-06-2022 16:24-0500 Blood Pressure Location Milvia Lue [facility] 07-06-2022 16:24-0500 Body temperature 97.88 [degF] Milvia Lue [facility] 07-06-2022 16:24-0500 Diastolic blood pressure 98 mm[Hg] Milvia Lue [facility] 07-06-2022 16:24-0500 Heart rate 76 /min Milvia Lue [facility] 07-06-2022 16:24-0500 Mean blood pressure 122 mm[Hg] Milvia Lue [facility] 07-06-2022 16:24-0500 SaO2% (BldA) [Mass fraction] 96 % Milvia Lue [facility] 07-06-2022 16:24-0500 Systolic blood pressure 169 mm[Hg] Milvia Lue [facility] 07-06-2022 16:16-0500 Blood Pressure Location Milvia Lue [facility] 07-06-2022 16:16-0500 Body temperature 97.52 [degF] Milvia Lue [facility] 07-06-2022 16:16-0500 Diastolic blood pressure 105 mm[Hg] Milvia Lue [facility] 07-06-2022 16:16-0500 Heart rate 82 /min Milvia Lue [facility] 07-06-2022 16:16-0500 Respiratory rate 16 /min Milvia Lue [facility] 07-06-2022 16:16-0500 SaO2% (BldA) [Mass fraction] 98 % Milvia Lue [facility] 07-06-2022 16:16-0500 Systolic blood pressure 159 mm[Hg] Milvia Lue [facility] 07-06-2022 16:03-0500 Blood Pressure Location Milvia Lue [facility] 07-06-2022 16:03-0500 Respiratory rate 12 /min Milvia Lue [facility] 07-06-2022 15:58-0500 Respiratory rate 17 /min Milvia Lue [facility] 07-06-2022 15:48-0500 Body temperature 97.7 [degF] Milvia Lue [facility] 07-06-2022 10:40-0500 Mean blood pressure 106 mm[Hg] Milvia Lue [facility] 07-06-2022 10:40-0500 Heart rate 80 /min Milvia Lue [facility] 07-06-2022 10:39-0500 Body temperature 98.78 [degF] Milvia Lue [facility] 07-06-2022 10:39-0500 Mean blood pressure 113 mm[Hg] Milvia Lue [facility] 07-06-2022 10:39-0500 Respiratory rate 20 /min Milvia Lue [facility] 06-30-2022 17:30-0500 Blood Pressure Location Milvia Lue [facility] 06-30-2022 17:30-0500 BP/Pulse Patient Position Milvia Lue [facility] 06-30-2022 17:30-0500 Diastolic blood pressure 84 mm[Hg] Milvia Lue [facility] 06-30-2022 17:30-0500 Systolic blood pressure 175 mm[Hg] Milvia Lue [facility] 06-30-2022 17:22-0500 Blood Pressure Location Milvia Lue [facility] 06-30-2022 17:22-0500 Diastolic blood pressure 96 mm[Hg] Milvia Lue [facility] 06-30-2022 17:22-0500 Heart rate 67 /min Milvia Lue [facility] 06-30-2022 17:22-0500 Mean blood pressure 125 mm[Hg] Milvia Lue [facility] 06-30-2022 17:22-0500 Systolic blood pressure 185 mm[Hg] Milvia Lue [facility] 06-30-2022 16:53-0500 Blood Pressure Location Milvia Lue [facility] 06-30-2022 16:53-0500 Body temperature 98.96 [degF] Milvia Lue [facility] 06-30-2022 16:53-0500 BP/Pulse Patient Position Milvia Lue [facility] 06-30-2022 16:53-0500 Diastolic blood pressure 96 mm[Hg] Milvia Lue [facility] 06-30-2022 16:53-0500 Heart rate 76 /min Milvia Lue [facility] 06-30-2022 16:53-0500 Mean blood pressure 124 mm[Hg] Milvia Lue [facility] 06-30-2022 16:53-0500 Respiratory rate 18 /min Milvia Lue [facility] 06-30-2022 16:53-0500 Systolic blood pressure 180 mm[Hg] Milvia Lue [facility] 06-30-2022 16:52-0500 BP/Pulse Patient Position Milvia Lue [facility] 06-30-2022 16:52-0500 Heart rate 79 /min Milvia Lue [facility] 06-30-2022 16:52-0500 Mean blood pressure 124 mm[Hg] Milvia Lue [facility] 06-30-2022 16:52-0500 SaO2% (BldA) [Mass fraction] 98 % Milvia Lue [facility] 06-25-2022 15:25-0400 Blood Pressure Location Curtis NILL [facility] 06-25-2022 15:25-0400 Diastolic blood pressure 86 mm[Hg] Curtis NILL [facility] 06-25-2022 15:25-0400 Heart rate 72 /min Curtis NILL [facility] 06-25-2022 15:25-0400 Respiratory rate 16 /min Curtis NILL [facility] 06-25-2022 15:25-0400 Systolic blood pressure 142 mm[Hg] Curtis NILL [facility] 06-02-2022 09:21-0400 Blood Pressure Location Milvia Lue [facility] 06-02-2022 09:21-0400 Diastolic blood pressure 86 mm[Hg] Milvia Lue [facility] 06-02-2022 09:21-0400 Heart rate 72 /min Milvia Lue [facility] 06-02-2022 09:21-0400 Systolic blood pressure 140 mm[Hg] Milvia Lue [facility] 05-26-2022 07:25-0400 Body height 182.88 cm MD Adilson Salazar Work Phone: [facility] 05-26-2022 07:25-0400 Body weight 98.88 kg MD Adilson Salazar Work Phone: [facility] 04-21-2022 11:39-0400 Respiratory rate 16 /min Milvia Lue [facility] 06-09-2019 11:39-0400 Body Temperature 98.29 [degF] [place] 06-09-2019 11:39-0400 BP Diastolic 79 mm[Hg] [place], [place] 06-09-2019 11:39-0400 BP Systolic 134 mm[Hg] [place] 06-09-2019 11:39-0400 Pulse (Heart Rate) 84 /min [place] 06-09-2019 11:39-0400 Pulse Oximetry 95 % [place] 06-09-2019 11:39-0400 Respiratory Rate 20 /min [place] 06-05-2019 20:48-0400 BMI (Body Mass Index) 29.84 kg/m2 [place] 06-05-2019 20:48-0400 Body weight 99.79 kg [place] 06-05-2019 20:48-0400 Height 182.9 cm [place] Encounters Encounter Date Encounter Type Care Provider Facility Start: 04-09-2025 End: 04-09-2025 Bamboo flowsheet Adilson Salazar MD Work Phone: [facility] Start: 04-09-2025 End: 04-09-2025 Bamboo flowsheet Adilson Salazar MD Work Phone: [facility] Start: 04-09-2025 End: 04-09-2025 Office outpatient visit 25 minutes Adilson Salazar MD Work Phone: [facility] Comment on above: Type 2 diabetes thomas itus with hyperglycemia, with long-term current use of insulin (HCC) (Primary Dx); Essential hypertension, benign ; Mild persistent asthma without complication (HCC); Heart failure with improved ejection fraction (HFimpEF) ([facility]); Coronary artery disease involving chefornak coronary artery of chefornak heart without angina pectoris Start: 04-09-2025 End: 04-09-2025 ambulatory ADILSON SALAZAR Not Available Start: 04-08-2025 End: 04-08-2025 ambulatory [facility] Start: 03-25-2025 End: 03-25-2025 ambulatory [facility] Start: 03-04-2025 ambulatory [facility] Start: 01-16-2025 End: 01-16-2025 Bamboo [employer] Salazar MD Work Phone: [facility] Start: 01-16-2025 End: 01-16-2025 Bamboo [employer] Salazar MD Work Phone: [facility] Start: 01-16-2025 End: 01-16-2025 Office outpatient visit 25 minutes Adilson Salazar MD Work Phone: [facility] Comment on above: Essential hypertensi on, benign (CMS/HCC) (Primary Dx); Type 2 diabetes mellitus with hyperglycemia, with long-term current use of insulin (CMS/HCC); Heart failure with improved ejection fraction (HFimpEF) (CMS/HCC); Coronary artery disease involving chefornak coronary artery of chefornak heart without angina pectoris (CMS/HCC); Acute non-recurrent pansinusitis Start: 01-16-2025 End: 01-16-2025 ambulatory ADILSON NADERER Not Available Start: 11-12-2024 End: 11-12-2024 Clinisync Result Encounter Adilson Salazar MD Work Phone: [facility] Unsolicited Start: 11-12-2024 End: 11-12-2024 Clinisync Result Encounter Adilson Salazar MD Work Phone: [facility] Unsolicited Start: 10-29-2024 End: 10-29-2024 ambulatory SILVANO FONTAINEGERALD [facility] Start: 10-16-2024 End: 10-16-2024 Transitional care manage [...] Not Available Start: 10-15-2024 End: 10-15-2024 ambulatory DEANLA BELLEArabella [facility] Start: 09-30-2024 End: 10-02-2024 Clinisync Result Encounter Generic External Data Provider [facility] Unsolicited Start: 09-30-2024 End: 10-02-2024 Clinisync Result Encounter Generic External Data Provider [facility] Unsolicited Start: 08-07-2024 End: 08-07-2024 ambulatory [facility] Start: 07-24-2024 ambulatory [address] [facility] Start: 07-02-2024 End: 07-02-2024 Office outpatient visit 25 minutes Adilson Salazar MD Work Phone: [facility] Comment on above: Type 2 diabetes thomas itus with hyperglycemia, with long-term current use of insulin (CMS/HCC) (Primary Dx); Essential hypertension, benign (CMS/HCC); Heart failure with improved ejection fraction (HFimpEF) ([facility]); Coronary artery disease involving chefornak coronary artery of chefornak heart without angina pectoris (CMS/HCC) Start: 07-02-2024 End: 07-02-2024 ambulatory ADILSON SALAZAR Not Available Start: 07-02-2024 End: 07-02-2024 Bamboo flowsheet Adilson Salazar MD Work Phone: [facility] Start: 07-02-2024 End: 07-02-2024 Bamboo flowsheet Adilson Salazar MD Work Phone: [facility] Start: 06-01-2024 End: 06-01-2024 ambulatory [facility] Start: 05-18-2024 End: 05-18-2024 Bamboo flowsheet Adilson [...] infectious organism; NSTEMI (non-ST elevated myocardial infarction) ([facility]/HCC); Coronary artery disease involving chefornak coronary artery of chefornak heart without angina pectoris (CMS/HCC); Type 2 diabetes mellitus with hyperglycemia, with long-term current use of insulin (CMS/HCC) Start: 05-18-2024 End: 05-18-2024 ambulatory ADILSON SALAZAR [...] failure with i mproved ejection fraction (HFimpEF) ([facility]) (Primary Dx); Type 2 diabetes mellitus with hyperglycemia, with long-term current use of insulin ([facility]); Coronary artery disease involving chefornak coronary artery of chefornak heart without angina pectoris ([facility]); Essential hypertension, benign (CMS/HCC); Bilateral impacted cerumen Start: 09-29-2023 Clinisync Result Encounter Adilson Salazar MD Work Phone: [facility] Unsolicited Start: 09-29-2023 Clinisync Result Encounter Adilson Salazar MD Work Phone: [facility] Unsolicited Start: 09-29-2023 Orders Only Adilson Bell Work Phone: [facility] Comment on above: Type 2 diabetes thomas itus with hyperglycemia, with long-term current use of insulin (CMS/HCC) Start: 02-02-2023 End: 02-03-2023 ambulatory Milvia Palomo [facility] Start: 02-02-2023 End: 02-02-2023 Patient encounter procedure Milvia Palomo [facility] Start: 11-17-2022 End: 11-17-[address] ADILSON SALAZAR Facility:[facility] Start: 11-03-2022 End: 11-04-2022 ambulatory Milvia Palomo Facility:[facility] Start: 11-03-2022 End: 11-03-2022 Patient encounter procedure Milvia Palomo [facility] Start: 10-25-2022 End: 10-26-2022 ambulatory MILVIA PALOMO Facility:[facility] Start: 10-12-2022 ambulatory Daniel Quinton Jacobsen ty:[facility] Start: 10-06-2022 End: 10-07-2022 ambulatory Milvia Palomo Facility:[facility] Start: 10-06-2022 End: 10-06-2022 Patient encounter procedure Milvia Palomo [facility] Start: 09-22-2022 End: 09-22-2022 ambulatory Adilson Salazar Facility:[facility] Start: 09-20-2022 End: 09-20-2022 ambulatory MD Adilson Salazar Work Phone: [facility] Work Phone: Start: 09-20-2022 End: 09-20-2022 Patient encounter procedure MD Adilson Salazar Work Phone: [facility]Pet Scan Work Phone: Start: 08-06-2022 End: 08-07-[address] CURTIS Osullivan Facility:[facility] Start: 08-04-2022 End: 08-05-2022 ambulatory Milvia Palomo Facility:[facility] Start: 08-04-2022 End: 08-04-2022 Patient encounter procedure Milvia Palomo [facility] Start: 08-03-2022 ambulatory Curtis GRACIA Facility :[facility] Start: 07-21-2022 Encounter for preprocedural laboratory examination DR CURITS GRACIA . [facility] Start: 07-21-2022 End: 07-22-[address] CURTIS GRACIA . Facility: Start: 07-17-2022 End: 07-18-[address] CURTIS GRACIA . Facility: Start: 07-17-2022 End: 07-18-2022 Encounter for preprocedural laboratory examination DR CURTIS GRACIA . Facility: Start: 07-06-2022 End: 07-06-2022 ambulatory Milvia Palomo Facility:[facility] Start: 07-06-2022 End: 07-06-2022 Admission to same day surgery center Milvia Palomo [facility] Start: 06-30-2022 End: 07-01-2022 ambulatory Milvia Palomo Facility:[facility] Start: 06-30-2022 End: 06-30-2022 Patient encounter procedure Milvia Palomo [facility] Start: 06-29-2022 End: 09-28-2022 ambulatory Milvia Palomo Facility:[facility] Start: 06-25-2022 End: 06-26-2022 ambulatory Curtis GRACIA Facility:[facility] Start: 06-25-2022 End: 06-25-2022 Patient encounter procedure Curtis GRACIA General Surgery [facility] Start: 06-15-2022 End: 06-16-[address] ADILSON SALAZAR Facility: Start: 06-07-2022 End: 06-07-[address] ADILSON SALAZAR Facility: Start: 06-04-2022 ambulatory Daniel BAEZA Facility :[facility] Start: 06-03-2022 End: 09-27-2022 Recurring Milvia Palomo [facility] Start: 06-02-2022 End: 06-03-2022 ambulatory Milvia Khari Palomo Facility:[facility] Start: 06-02-2022 End: 06-30-2022 Pre-admission assessment Milvia Palomo [facility] Start: 06-02-2022 End: 06-02-2022 Patient encounter procedure Milvia Palomo [facility] Start: 05-26-2022 End: 05-26-2022 ambulatory MD Adilson Salazar Work Phone: [facility] Work Phone: Start: 05-26-2022 End: 05-26-2022 Patient encounter procedure MD Adilson Salazar Work Phone: [facility] Start: 04-21-2022 End: 04-22-2022 ambulatory Milvia FordAbran Danieljosiah Facility:[facility] Start: 04-21-2022 End: 04-21-2022 Patient encounter procedure Milvia PowersAbran Dewey [facility] Start: 01-26-2022 End: 01-27-[address] ADILSON SALAZAR Facility: Start: 06-05-2019 End: 06-09-2019 [facility] Start: 06-05-2019 End: 06-09-2019 Evaluation and management of inpatient Anselmo Garza Work Phone: [facility] 5C Neuro Comment on above: Cerebrovascular acci dent (CVA), unspecified mechanism (HCC) (Primary Dx) Procedures Date Procedure Procedure Detail Performing Clinician Start: 11-12-2024 [facility] MICROALB CREAT R ATIO RANDOM Adilson Salazar MD Work Phone: Start: 09-30-2024 BLOOD CULTURE 1 Generic External [...] Performed By: #### P TT, PT #### [facility] [address] [place] [address] Dr. Marcell Luque Start: 09-08-2020 Transrectal biopsy [...] Start: 06-09-2019 Glucose blood reagent strip Omer Dorian Juan Manuel Work Phone: Start: 06-09-2019 FACTOR 5 LEIDEN [...] HARP Start: 06-08-2019 Assay of magnesium OSCAR HRAP Start: 06-08-2019 Assay of phosphorus inorganic OSCAR [...] 06-07-2019 WOUND CARE OSCAR HARP Start: 06-07-2019 [employer]IVER REPORT OSCAR BR SUSHILA Start: 06-07-2019 Glucose blood reagent strip Oscar Harp Work Phone: Start: 06-07-2019 [employer] DRIVER REPORT Hpf Sca nning Start: 06-07-2019 VERIFY [...] 06-07-2019 Basic metabolic pane l calcium total Eugene Carvalho Work Phone: Start: 06-07-2019 Blood count complete auto&auto difrntl wbc Eugene Hedrickbadorian Work Phone: Start: 06-07-2019 Gluc bld gluc [...] Phone: Start: 06-06-2019 Assay of magnesium Vipin Morales Work Phone: Start: 06-06-2019 Assay of phosphorus inorganic Vipin Morales Work Phone: Start: 06-06-2019 Basic metabolic [...] AL VTE PROPHYLAXIS OSCAR HARP Start: 06-06-2019 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 OSCAR HARP Start: 06-06-2019 ELEVATE HOB OSCAR HARP Start: 06-06-2019 NEURO/VASCULAR CHECKS Ciera HARP Start: 06-06-2019 NO ANTICOAGULANTS OSCAR HARP Start: 06-06-2019 NOTIFY PHYSICIAN (SPECIFY) OSCAR HARP Start: 06-06-2019 NURSING COMMUNICATION Ciera HARP Start: 06-06-2019 TELEMETRY MONITORING PA ALLISON HARP Start: 06-06-2019 VITAL SIGNS OSCAR HARP [...] Start: 06-06-2019 Speech and language therapy regime Mohamed Sa Seferino Work Phone: Start: 06-06-2019 Iadna s aureus [...] OXIMETRY OSCAR QUINONEZ Start: 06-05-2019 TELEMETRY MONITORING PA ALLISON HARP Start: 06-05-2019 VITAL SIGNS OSCAR HARP Start: 06-05-2019 VITAL SIGNS - NOTIFY MD OSCAR HARP Start: 06-05-2019 Lipid panel OSCAR HARP Start: 06-05-2019 ANION GAP (CALC) POC ROSIO ALLISON HARP Start: 06-05-2019 Blood count hemoglobin OSCAR HARP Start: 06-05-2019 Calcium ionized OSCAR CONTI Start: 06-05-2019 Chloride other source P AMRIKL LOYD Start: 06-05-2019 CREATININE W/GFR POI NT OF CARE OSCAR HARP Start: 06-05-2019 Gluc bld gluc mntr d ev cleared fda spec home use OSCAR HARP Start: 06-05-2019 LACTIC ACID,POINT OF CARE OSCAR LOYD Start: 06-05-2019 Potassium serum plasma/whole blood OSCAR LOYD Start: 06-05-2019 Sodium serum plasma or whole blood OSCAR HARP Start: 06-05-2019 VENOUS BLOOD GAS, PO INT OF CARE OSCAR HARP Start: 06-05-2019 Glucose blood reagent strip OSCAR HARP Start: 06-05-2019 Ct angiography neck w/contrast/noncontrast Mason Gilletteverson Work Phone: Start: 06-05-2019 Ct head/brain w/o co ntrast material [facility] Work Phone: Start: 06-05-2019 Radiologic exam ches t single view Mason Gilletteverson Work Phone: Start: 06-05-2019 Ecg routine ecg w/le ast 12 lds i&r only Mason Gilletteverson Work Phone: Start: 06-05-2019 EKG REPORT Hpf Scanni ng Start: 06-05-2019 STROKE PANEL Mason christian Work Phone: Start: 06-05-2019 ANION GAP (CALC) POC Jhoana jacob Kayla Work Phone: Start: 06-05-2019 Blood count hemoglobin Anselmo Kayla Work Phone: Start: 06-05-2019 CALCIUM, IONIC (POC) Wi cecil Garza Work Phone: Start: 06-05-2019 Chloride [Moles/Vol] Wi cecil Gridley Work Phone: Start: 06-05-2019 CREATININE W/GFR POI NT OF CARE Anselmo Garza Work Phone: Start: 06-05-2019 Gluc bld gluc mntr d ev cleared fda spec home use Anselmo Garza Work Phone: Start: 06-05-2019 LACTIC ACID,POINT OF CARE Anselmo Garza Work Phone: Start: 06-05-2019 Potassium [Moles/Vol] W illadriana Gazra Work Phone: Start: 06-05-2019 Sodium [Moles/Vol] Will adrianaford Garza Work Phone: Start: 06-05-2019 VENOUS BLOOD GAS, PO INT OF CARE Anselmo Garza Work Phone: Start: 06-05-2019 Glucose blood reagent strip Anselmo Garza Work Phone: Start: 08-22-2011 Colonoscopy Curtis DAVIS Arthroplasty of knee Milvia Singleton ue Arthroplasty [...] 07-21-2032 Screening for malignant neoplasm of colon [facility] Start: 11-12-2025 Urine screening for protein Diabetes: Urine Protein Screening [facility] Start: 07-10-2025 End: 07-10-2025 Patient encounter procedure 07/10/2025 9:30 AM EST Office Visit [facility] [address] [place] [id number] Adilson Salazar MD [address] [place] [phone] [facility] Start: 05-12-2025 Hemoglobin A1c measurement Diabetes: Hemoglobin A1C [facility] Start: 04-22-2025 Influenza vaccination [facility] Start: 04-18-2025 End: 04-18-2025 Patient encounter procedure 04/18/2025 2:15 PM EDT Office Visit [facility] [address] [place] [phone] Adilson Salazar MD [address] [place] [phone] [facility] Start: 04-09-2025 End: 04-09-2026 Hemoglobin A1c/Hemoglobin.total in Blood Hemoglobin A1c Lab Routine Type 2 diabetes mellitus with hyperglycemia, with long-term current use of insulin (HCC) Expected: 04/09/2025 (Approximate), Expires: 04/09/2026 [facility] Work Phone: Comment on above: Expected: 04/09/2025 (Approximate), Expi res: 04/09/2026 Start: 04-09-2025 End: 04-09-2025 Patient encounter procedure 04/09/2025 10:00 AM EDT Office Visit [facility] [address] [place] [phone] Adilson Salazar MD [address] [place] [phone] Arrived [facility] Comment on above: Arrived Start: 03-13-2025 Urine screening for protein Diabetes: Urine Protein Screening [facility] Start: 01-16-2025 End: 01-16-2025 [facility] Comment on above: Arrived Start: 10-16-2024 End: 10-16-2024 Patient encounter procedure 10/16/2024 2:30 PM EST Office Visit [facility] [address] [place] [phone] Adilson Salazar MD [address] [place] [phone] [facility] Comment on above: Arrived Start: 10-16-2024 End: 10-16-2025 Hemoglobin A1c/Hemoglobin.total in Blood Hemoglobin A1c Lab Routine Type 2 diabetes mellitus with hyperglycemia, with long-term current use of insulin ([facility]) Expected: 10/16/2024 (Approximate), Expires: 10/16/2025 [facility] Comment on above: Expected: 10/16/2024 (Approximate), Expi res: 10/16/2025 Start: 10-16-2024 End: 10-16-2025 Microalbumin/Creatinine panel in random Urine Microalbumin / creatinine, urine ratio Lab Routine Type 2 diabetes mellitus with hyperglycemia, with long-term current use of insulin ([facility]) Expected: 10/16/2024 (Approximate), Expires: 10/16/2025 [facility] Work Phone: Comment on above: Expected: 10/16/2024 (Approximate), Expi res: 10/16/2025 Start: 10-02-2024 End: 10-02-2024 Patient encounter procedure 10/02/2024 1:30 PM EST Office Visit [facility] [address] [place] [phone] Adilson Salazar MD [address] [place] [phone] [facility] Start: 09-14-2024 Hemoglobin A1c measurement Diabetes: Hemoglobin A1C [facility] Start: 07-02-2024 End: 07-02-2024 Patient encounter procedure 07/02/2024 2:30 PM EST Office Visit [facility] [address] [place] [address] Adilson Salazar MD [address] [place] [id number] [facility] Start: 07-02-2024 End: 07-02-2025 Hemoglobin A1c/Hemoglobin.total in Blood Hemoglobin A1c Lab Routine Type 2 diabetes mellitus with hyperglycemia, with long-term current use of insulin ([facility]) Expected: 07/02/2024 (Approximate), Expires: 07/02/2025 [facility] Work Phone: Comment on above: Expected: 07/02/2024 (Approximate), Expi res: 07/02/2025 Start: 06-17-2024 Urine screening for protein Diabetes: Urine Protein Screening [facility] Start: 06-14-2024 Hemoglobin A1c measurement Diabetes: Hemoglobin A1C [facility] Start: 05-18-2024 End: 05-18-2024 Patient encounter procedure [facility] Comment on above: Arrived Start: 04-22-2024 Influenza vaccination Influenza Vaccine (#1) [facility] Start: 12-29-2023 End: 12-29-2023 Patient encounter procedure 12/29/2023 11:15 AM EDT Office Visit [facility] [address] [place] [phone] Adilson Salazar MD [address] [place] [id number] [facility] Start: 09-17-2023 Hemoglobin A1c measurement Diabetes: Hemoglobin A1C [facility] Start: 04-22-2023 Influenza vaccination Influenza Vaccine (#1) [facility] Start: 05-26-2022 MR Prostate WO and W contrast IV [facility] Start: 05-26-2022 MR prostate wo/w con MR prostate wo/w con [facility] Start: 06-08-2020 Creatinine monitoring Creatinine monitoring [place], [place] Start: 06-08-2020 Potassium monitoring Potassium monitoring [place], [place] Start: 06-06-2020 Lipid screen Lipid screen [place] Start: 09-06-2019 A1C test (Diabetic or Prediabetic) A1C test (Diabetic or Prediabetic) [place] Start: 06-05-2019 Annual Wellness Visit (AWV) Annual Wellness Visit (AWV) [place] Start: 04-22-2019 Influenza vaccination Flu vaccine (#1) [place] Start: 03-20-2014 Pneumococcal Vaccine: 65+ Years (2 - PCV) Pneumococcal Vaccine: 65+ Years (2 - PCV) [facility] Start: 03-20-2014 Pneumococcal Vaccine: 65+ Years (2 of 2 - PCV) Pneumococcal Vaccine: 65+ Years (2 of 2 - PCV) [facility] Start: 11-08-2005 Colon cancer screen colonoscopy Colon cancer screen colonoscopy [place] Start: 11-08-2005 Shingles Vaccine (1 of 2) Shingles Vaccine (1 of 2) [place], [place] Start: 11-08-1974 DTaP/Tdap/Td vaccine (1 - Tdap) DTaP/Tdap/Td vaccine (1 - Tdap) [place] Start: 11-08-1973 Diabetic microalbuminuria test Diabetic microalbuminuria test [place] Start: 11-08-1970 HIV screen HIV screen [place] Start: 11-08-1965 [object Object] Diabetic foot exam [place] Start: 11-08-1965 Diabetic retinal exam Diabetic retinal exam [place], [place] Start: 11-08-1965 Glaucoma screening Diabetes: Retinopathy Screening [facility] Start: 1955 Hepatitis C screen Hepatitis C screen [place], [place] Start: 1955 Screening for malignant neoplasm of colon [facility] End: 06-09-2019 ANTI-PHOSPHOLIPID AB ANTI-PHOSPHOLIPID AB Lab Routine One Time for 1 Occurrences starting 06/09/2019 until 06/09/2019 [place] Comment on above: One Time for 1 Occurrences starting 05/22 until 06/09/2019 ANTI-PHOSPHOLIPID AB ANTI-PHOSPH OLIPID AB Lab Routine 06/09/2019 9:41 AM EDT [place] Basic metabolic 2000 panel Basic Metabolic Panel Lab Routine Daily until discontinued starting 06/07/2019, 3 completed [place] Comment on above: Daily until discontinued starting 2018, 3 completed BLOOD CULTURE 1 BLOOD CULTURE 1 Lab Routine 05/09/2024 10:39 AM EDT [facility] BLOOD CULTURE 1 BLOOD CULTURE 1 Lab Routine 09/30/2024 10:48 PM [facility] CBC Auto Differential CBC Auto D ifferential Lab Routine Daily until discontinued starting 06/07/2019, 3 completed [place] Comment on above: Daily until discontinued starting 2018, 3 completed End: 06-07-2019 Diagnostic Cardiac Vp Client Services Procedure Diagnostic Cardiac Vp Client Services Procedure Cardiac Cath Routine One Time for 1 Occurrences starting 06/07/2019 until 06/07/2019 [facility] [place] Comment on above: One Time for 1 Occurrences starting 05/22 until 06/07/2019 End: 06-09-2019 Dilute Deepak Viper Dilute Deepak Viper Lab Routine One Time for 1 Occurrences starting 06/09/2019 until 06/09/2019 [facility] [place] Comment on above: One Time for 1 Occurrences starting 05/22 until 06/09/2019 Dilute Deepak Viper Dilute Jaime ell Viper Lab Routine 06/09/2019 9:41 AM EDT [facility] [place] End: 06-09-2019 FACTOR 5 LEIDEN FACTOR 5 LEIDEN Lab Routine One Time for 1 Occurrences starting 06/09/2019 until 06/09/2019 [facility] [place] Comment on above: One Time for 1 Occurrences starting 05/22 until 06/09/2019 End: 06-09-2019 FACTOR 8 ASSAY FACTOR 8 ASSAY Lab Routine One Time for 1 Occurrences starting 06/09/2019 until 06/09/2019 [facility] [place] Comment on above: One Time for 1 Occurrences starting 05/22 until 06/09/2019 FACTOR 8 ASSAY FACTOR 8 ASSAY L ab Routine 06/09/2019 9:41 AM EDT [facility] [place] Home BIPAP or CPAP Home BIPAP or CPAP Respiratory Care Routine Daily until discontinued starting 06/07/2019 [facility] [place] Comment on above: Daily until discontinued starting 2018 Incentive spirometry Incentive s pirometry Respiratory Care Routine Daily until discontinued starting 06/06/2019 [facility] [place] Comment on above: Daily until discontinued starting 2018 Initiate Oxygen Ther apy Protocol Initiate Oxygen Therapy Protocol Respiratory Care Routine Daily until discontinued starting 06/07/2019 [facility] [place] Comment on above: Daily until discontinued starting 2018 [facility] above: 4X Daily (AC & HS) until discontinued st arting 06/06/2019 As Needed until disc ontinued starting 06/06/2019 End: 06-09-2019 Protein C Functional Protein C Functional Lab Routine One Time for 1 Occurrences starting 06/09/2019 until 06/09/2019 [facility] [place] Comment on above: One Time for 1 Occurrences starting 05/22 until 06/09/2019 Protein C Functional Protein C F unctional Lab Routine 06/09/2019 9:41 AM EDT [facility] End: 06-09-2019 Protein S Functional Protein S Functional Lab Routine One Time for 1 Occurrences starting 06/09/2019 until 06/09/2019 [facility] [place] Comment on above: One Time for 1 Occurrences starting 05/22 until 06/09/2019 Protein S Functional Protein S F unctional Lab Routine 06/09/2019 9:41 AM EDT [facility] End: 06-09-2019 Prothrombin Gene Mutation Prothrombin Gene Mutation Lab Routine One Time for 1 Occurrences starting 06/09/2019 until 06/09/2019 [facility] [place] Comment on above: One Time for 1 Occurrences starting 05/22 until 06/09/2019 End: 06-07-2019 Pulse oximetry, continuous Pulse oximetry, continuous Respiratory Care Routine Every 4hr for 24 Hours starting 06/06/2019 until 06/07/2019 [facility] [place] Comment on above: Every 4hr for 24 Hours starting 06/06/20 until 06/07/2019 Immunizations Immunization Date Immunization Notes Care Provider Tyra dailey 03-20-2013 pneumococcal polysaccharide vaccine, 23 valent Milvia Palomo [facility] Payers Date Payer Category Payer Unknown ALLIED BENEF[employer] S [employer] [id number] 2023-Present [address] [place] [id number] 2023 Unknown [id number] 2023 Private Health Insurance [id number] 2022 Self-pay [id number] 2018 Medicare MEDICARE MEDICAR E PART A AND B xxxxxxxxxxx 2018-Present [phone] [place] [address] xxxxxxxxxxx [id number] 1997 Medicare [id number] 1959 Medicare [id number] 1959 Unknown [id number] 1955 Unknown [id number] 2.16.840.1.676008.3.579.2 .175 1955 Unknown [id number] 2.16.840.1.903833.3.579.2 .593 1955 Unknown [id number] 2.16.840.1.904500.3.579.2 .593 1955 Unknown [id number] 2.16.840.1.619396.3.579.2 .593 1955 Unknown [id number] 2.16.840.1.973264.3.579.2 .593 1955 Unknown [id number] 2.16.840.1.774871.3.579.2 .593 1955 Unknown [id number] 2.16.840.1.560255.3.579.2 .593 1955 Unknown [id number] 2.16.840.1.036091.3.579.2 .593 1955 Unknown [id number] 2.16.840.1.197511.3.579.2 .593 1955 Unknown [id number] 2.16.840.1.260267.3.579.2 .727 1955 Unknown [id number] 2.16.840.1.892520.3.579.2 .727 1955 Unknown [id number] 2.16.840.1.807168.3.579.2 .1955 Unknown [id number] 2.16.840.1.869372.3.579.2 .72 1955 Unknown [id number] 2.16.840.1.204491.3.579.2 .1955 Unknown [id number] 2.16.840.1.686049.3.579.2 .1955 Unknown [id number] 2.16.840.1.194642.3.579.2 1955 Unknown [id number] 2.16.840.1.178523.3.579.2 .1955 Unknown [id number] 2.16.840.1.356702.3.579.2 .1955 Unknown [id number] 2.16.840.1.832266.3.579.2 .1955 Unknown [id number] 2.16.840.1.518133.3.579.2 .1955 Unknown [id number] 2.16.840.1.251507.3.579.2 .1955 Unknown [id number] 2.16.840.1.861163.3.579.2 .72 1955 Unknown [id number] 2.16.840.1.838710.3.579.2 .125 1955 Unknown [id number] 2.16.840.1.710828.3.579.2 .1258 1955 Unknown [id number] 2.16.840.1.075215.3.579.2 .1259 1955 Unknown [id number] 2.16.840.1.444150.3.579.2 .1259 1955 Unknown [id number] 2..840.1.088087.3.579.2 .1259 1955 Unknown [id number] 2.16.840.1.188522.3.579.2 .1259 Medicare Medicare Outpatient [id number] [facility] [id number] Unknown [id number] 2..840.1.551487.3.579.2 .531 Social History Date Type Detail Facility Start: 06-06-2019 End: 08-05-2023 Tobacco smoking status LAIS Never smoker [facility] Start: 06-06-2019 End: 04-09-2025 Alcohol intake Never [place] Start: 06-05-2019 History SDOH Alcohol Frequency 1 [place] Start: 1955 Sex Assigned At Not on file [place], [place] Tobacco smoking status Never [facility] Start: 06-25-2021 End: 08-04-2022 Tobacco smoking status LAIS Ex-smoker (finding) [facility] Start: 1955 Sex Assigned At Male F [facility] Start: 08-05-2023 Tobacco use and exposure Smokeless tobacco non-user [facility] Start: 09-26-2023 End: 04-09-2025 Alcohol intake Ex-drinker (finding) [facility] Start: 09-26-2023 End: 04-09-2025 History of Social function [facility] Medical Equipment Procedure Code Equipment Code Equipment Origin al Text Equipment Identifier Dates 1 each by In Vit ro route in the morning and 1 each in the evening and 1 each before bedtime. [id number] Start: 09-26-2023 1 each in the morning and 1 each in the evening and 1 each before bedtime. [id number] Start: 09-26-2023 Functional Status Date Assessment Result Facility 02-02-2023 Functional Status N/A [facility] 11-03-2022 Functional Status N/A [facility] 10-06-2022 Functional Status N/A [facility] 08-04-2022 Functional Status N/A [facility] 06-30-2022 Functional Status No [facility] 06-25-2022 Functional Status N/A [facility] Functional Status N/A [facility] 04-21-2022 Functional Status N/A [facility] Clinical Notes 04-21-2022 to 04-09-2025 Adilson Salazar MD - 04/09/2025 10:33 AM Bette Salazar MD - 04/09/2025 10:31 AM Bette Salazar MD - 04/09/2025 10:31 AM Bette Salazar MD - 04/09/2025 10:31 AM EDT Note Date & Type Note Facility 04-09-2025 History of Present illness Narrative Associated Problem(s): Type 2 diabetes mellitus with hyperglycemia (HCC) Reports BS elevated and due for A1C. Resume ozempic. Stick to ADA diet and limit carbs. Associated Problem(s): Mild persistent asthma without complication (HCC) Frequent cough and mild SOB. Resume inhaled steroid. Associated Problem(s): Heart failure with improved ejection fraction (HFimpEF) (HCC) Edema stable and continue medication. Associated Problem(s): Essential hypertension, benign BP elevated but controlled at home and monitor PRN. Associated Problem(s): Coronary artery disease involving chefornak coronary artery of chefornak heart without angina pectoris Continue medication and follow with cardiology. Images from the original note were not included. Subjective Patient ID: Eunice Marte is a 69 y.o. male who presents for Follow-up (3m) and Sinusitis. Follow up DM, HTN, CHF, and CAD. Patient stable today. BS remains slightly elevated about 200. Tries to eat well and stick to ADA diet but reports frequent splurges. Denies signs of elevated BS such as polyuria, polyphagia or polydipsia. Taking insulin daily but did not start ozempic. Not checking BP away from office but very high today. Reports forgot to take medication this morning. Edema controlled with medication. Mild swelling at end of day and if on feet a lot. Edema improved in am and with elevation. Following with cardiology and no chest pain or palpitations. C/o cough for several weeks. Dry cough all day and night. Mild SOB. Not on inhalers or using breathing treatments. Sinusitis Pertinent negatives include no coughing or shortness of breath. Review of Systems Constitutional: Negative for fatigue. [...] Items Addressed This Visit Essential hypertension, benign BP elevated but controlled at home and monitor PRN. Type 2 diabetes mellitus with hyperglycemia (HCC) - Primary Reports BS elevated and due for A1C. Resume ozempic. Stick to ADA diet and limit carbs. Relevant Orders Hemoglobin A1c Coronary artery disease involving chefornak coronary artery of chefornak heart without angina pectoris Continue medication and follow with cardiology. Heart failure with improved ejection fraction (HFimpEF) (HCC) Edema stable and continue medication. Mild persistent asthma without complication (HCC) Frequent cough and mild SOB. Resume inhaled steroid. Relevant Medications budesonide (Pulmicort Flexhaler) 180 MCG/ACT inhaler documented in this encounter [facility] 04-08-2025 Note aPATIENT: Eunice munoz DATE OF : 1955 DATE OF VISIT: 04/08/25 [facility]YLLIS [facility]COSTA M.D., F.A.C.S. 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 Eunice Marte is a 69 y.o. -Faroese male with history of HTN, HLD, Diabetes Mellitus Type 2, Stroke (04/2015 resulted in right sided weakness since has improved), CAD, [place] in 2021 on ASA 81mg s/p implantable [...] urologist Milvia Daniel MD on 07/06/2022 at [facility] for a total of 24 cores (12 systematic cores x2 and 4 cores obtained from [facility]ÍA ELE[facility] #1). Pathology per [facility] review revealed acinar adenocarcinoma of the prostate, Menlo 3+4= 7; GG 2 involving 2/13 in [...] distant metastatic disease. Decipher prostate biopsy genomic imaging science professor was obtained on prostate biopsy above, reported [...] been affected by his a prior stroke, continue waxing and waning but not getting worse. He denies changes in health since last visit, specifically no gross hematuria, dysuria, has moderately significant LUTS, nocturia x3 he does have urgency, but no significant UUI, requiring at least 2-3 depends in a 24-hour period. He reports being happy with his urination. Prior AUA-SI , QoL 5 (unhappy). Currently taking tamsulosin 0.4 mg and oxybutynin 5 mg at bedtime only. He is no longer taking Myrbetriq 50 mg. THANH 0 (has IPP in place, not currently sexually active since stroke in 2014). He can walk using a cane a couple of blocks before he gets tired. He denies chest pain or shortness of breath. I had a long discussion with Mr. Marte and his regarding his a clinical presentation, symptoms, exam finding including BHUPINDER 12/07/2022 45 g prostate, with left side induration, no discrete nodule, cT2a. I reviewed and discussed outside inside sales consultant note, outside laboratory tests, outside imaging including MRI prostate and PSMA, pathology result of prostate biopsy, and decipher score. Mr. Marte has unfavorable intermediate risk prostate cancer by NCCN criteria since he has 2 intermediate risk factors (PSA 11.09 ng/mL and GG2 prostate cancer), however, decipher genomic imaging science professor designate patient as a high risk with a score of 0.73. His ECOG performance status 2. After thorough and prolonged discussion, Mr. Marte underwent EBRT to the prostate and SV concurrently with ADT with Orgovyx which he is currently taking. I reviewed and discussed most recent stable PSA <0.1 ng/mL and testosterone 31 ng/dL 03/04/2024, indicating appropriate response to EBRT and hormone therapy. He has completed 1 year of ADT with regular Orgovyx. Further I reviewed and discussed DEXA bone density scan on 05/2023 revealed normal bone mineral density per WHO cri (more content not included)... [facility] 03-25-2025 Note [facility] Subjective Eunice Marte is a 69 y.o. year old male patient being seen for a 6 month follow up. Patient states he is feeling pretty good. Patient denies chest pain, leg pain/swelling, heart racing/palpitations, dizziness/lightheaded and fatigue. He has no complaints of EASTON, SOB. Patient Active Problem List Diagnosis Prostate cancer ([facility]) Cerebrovascular accident (CVA) ([facility]) History of diabetes mellitus History of DVT (deep vein thrombosis) History of hypertension History of ischemic left MCA stroke Hypercholesterolemia Hypertension Partial seizure ([facility]) Type 2 diabetes mellitus without complication, with long-term current use of insulin ([facility]) Osteoarthritis of knee Malignant neoplasm of prostate ([facility]) NSTEMI (non-ST elevated myocardial infarction) ([facility]) Chest pain BPH associated with nocturia Essential hypertension, benign Type 2 diabetes mellitus with hyperglycemia ([facility]) Vitamin D deficiency ALLISON on CPAP Acute anemia Chronic systolic heart failure ([facility]) intermediate (current) use of insulin ([facility]) Mixed hyperlipidemia Elevated lipoprotein(a) Coronary artery disease involving chefornak coronary artery of chefornak heart without angina pectoris Dyshidrotic eczema Gastroesophageal reflux disease Heart failure with improved ejection fraction (HFimpEF) ([facility]) Lateral rectus muscle paralysis, right Multi-infarct dementia, uncomplicated ([facility]) Single subsegmental pulmonary embolism without acute cor pulmonale ([facility]) Acute non-recurrent pansinusitis Acute non-ST segment elevation myocardial infarction ([facility]) Diverticulitis Hypomagnesemia Family History Problem Relation Name Age of Onset Heart disease Mother 58 Heart disease Maternal Grandmother heart trouble Heart disease Maternal Grandfather heart trouble Social History Tobacco Use Smoking status: Former Current packs/day: 0.00 Average packs/day: 0.3 packs/day for 20.0 years (5.0 ttl pk-yrs) Types: Cigarettes Start date: 1994 Quit date: 2014 Years since quittin.5 Passive exposure: Past Smokeless tobacco: Never Vaping Use Vaping status: Never Used Substance Use Topics Alcohol use: Yes Comment: Socially Drug use: Not Currently Types: Marijuana LUDMILA Keita is seen in follow up. He is a 69-year-old man who was seen in the past referred from Dr. Acosta's office for cardiac evaluation prior to robotic surgery of the prostate. He has prior history of diabetes, hyperlipidemia, hypertension. He had a stroke in 2019 and was investigated by transesophageal echocardiogram that showed an ejection fraction of 40% with no significant valvular dysfunction. He underwent a loop recorder placement that has not shown any significant arrhythmias. He was hospitalized February 2024 for unstable angina. He underwent cardiac catheterization that revealed diffuse coronary artery disease appropriate for medical management. Subsequent echocardiogram showed improvement in ejection fraction to normal. Today he reports that he has been doing well and he denies symptoms of chest pain and shortness of breath. Review of Systems Constitutional: Positive for malaise/fatigue. HENT: Negative. Eyes: Negative. Cardiovascular: Negative for chest pain and dyspnea on exertion. Respiratory: Negative for shortness of breath. Endocrine: Negative. Hematologic/Lymphatic: Negative. Skin: Negative. Musculoskeletal: Negative. Gastrointestinal: Negative. Genitourinary: Negative. Neurological: Negative. Psychiatric/Behavioral: Negative. Allergic/Immunologic: Negative. Objective Visit Vitals BP 174/89 (BP Location: Right arm, Patient Position: Sitting) Pulse 61 Ht 1.905 m (6' 3 ) Wt 104 kg (230 lb) SpO2 95% BMI 28.75 kg/m??? Smoking Status Former BSA 2.35 m??? Physical Exam Constitutional: Appearance: He is [...] is warm and dry. Neurological: General: No fo (more content not included)... [facility] 01-16-2025 History of Present illness Narrative Associated Problem(s): Type 2 diabetes mellitus with hyperglycemia ([facility]) Not checking BS and last A1C. Resume ozempic. Stick to ADA diet and limit carbs. Associated Problem(s): Heart failure with improved ejection fraction (HFimpEF) ([facility]) Edema stable and continue medication. Associated Problem(s): Essential hypertension, benign ([facility]) BP elevated but controlled at home and monitor PRN. Associated Problem(s): Coronary artery disease involving chefornak coronary artery of chefornak heart without angina pectoris ([facility]) Continue medication and follow with cardiology. Associated Problem(s): Acute non-recurrent pansinusitis Take antibiotics for 7 days. Use prednisone for inflammation. Use sudafed or other decongestants as needed. Use Robitussin or Robitussin-DM for cough. Can use afrin for congestion but no longer than 3 days. Can use Mucinex to bring up phlegm. Use Motrin or Tylenol as needed for fever, aches, or pains. Increase fluid intake and rest. Should improve over next 5-7 days and if no better or worse call for re-evaluation. Images from the original note were not included. Subjective Patient ID: Eunice Marte is a 69 y.o. male who presents for Follow-up (3m/) and Cough. Follow up DM, HTN, CHF, and CAD. Patient stable today. Not checking BS away from office but last A1C 12.2. Tries to eat well and stick to ADA diet. Denies signs of elevated BS such as polyuria, polyphagia or polydipsia. Taking insulin daily but out of ozempic. Not checking BP away from office but very high today. Reports forgot to take medication this morning. Edema controlled with medication. Mild swelling at end of day and if on feet a lot. Edema improved in am and with elevation. Following with cardiology and no chest pain or palpitations. C/o cough, congestion, and rhinorrhea x 1 week. Afebrile. Severe fatigue and no energy. Mild cough dry and nonproductive. Denies chest tightness or SOB. WILHELM and sinus pressure in forehead and cheeks along with postnasal drip. Ears plugged and popping. Sore throat and pain to swallow. Mild nausea. Denies recent sick contacts. Using OTC medication and mild relief. No improvement in symptoms since onset. Cough Pertinent negatives include no chest pain, shortness of breath or wheezing. Review of Systems Constitutional: Negative for fatigue. Respiratory: Positive for cough. Negative for shortness of breath and wheezing. Cardiovascular: Negative [...] Addressed This Visit Essential hypertension, benign (CMS/HCC) - Primary BP elevated but controlled at home and monitor PRN. Type 2 diabetes mellitus with hyperglycemia (CMS/HCC) Not checking BS and last A1C. Resume ozempic. Stick to ADA diet and limit carbs. Relevant Medications semaglutide (Ozempic, 0.25 or 0.5 MG/DOSE,) 2 MG/1.5ML solution pen-injector Coronary artery disease involving chefornak coronary artery of chefornak heart without angina pectoris (CMS/HCC) Continue medication and follow with cardiology. Heart failure with improved ejection fraction (HFimpEF) (CMS/[facility]) Edema stable and continue medication. Acute non-recurrent pansinusitis Take antibiotics for 7 days. Use prednisone for inflammation. Use sudafed or other decongestants as needed. Use Robitussin or Robitussin-DM for cough. Can use afrin for congestion but no longer than 3 days. Can use Mucinex to bring up phlegm. Use Motrin or Tylenol as needed for fever, aches, or pains. Increase fluid intake and rest. Should improve over next 5-7 days and if no better or worse call for re-evaluation. Relevant Medications levoFLOXacin (Levaquin) 750 MG tablet predniSONE (Deltasone) 50 MG tablet documented in this encounter [facility] 10-29-[address] [facility] Department of Radiation Oncology [address] [place] [address] RADIATION ONCOLOGY FOLLOW UP NOTE Date of [...] right sided weakness since has improved), CAD, NH in 2021 on ASA 81mg s/p implantable loop recorder, LE DVT (not on current anticoagulation), Asthma, ALLISON on CPAP, GERD, BPH, ED s/p placement of IPP in 2012), and a recent diagnosis of unfavorable intermediate risk prostate cancer. Patient presented with an elevated PSA a couple years ago, and has beenclosely monitored. Most recently, he had a [employer] 28 genomic score testing, that yielded a high [...] on forearms b (more content not included)... [facility] 10-16-2024 History of Present illness Narrative Associated Problem(s): Heart failure with improved ejection fraction (HFimpEF) ([facility]) Edema stable and continue medication. Associated Problem(s): Multi-infarct dementia, uncomplicated (CMS/[facility]) Monitor. Associated Problem(s): Prostatic cancer (CMS/HCC) Follow [...] a 68 y.o. male who presents for hsp follow up . Hospital follow up from [...] high fiber diet. documented in this encounter [facility] 10-15-2024 Note [place] [facility] Subjective Eunice Marte is a 68 y.o. year old male patient being seen for follow up [facility] follow up. He was previously hospitalized for NSTEMI s/p coronary angiogram on 03/14/24 with CAD and recommendations for medical management. He was recently hospitalized for fever and diverticulitis. He developed confusion and altered mental status. He adamantly denies any cardiac complaints or concerns. Denies any chest pain or shortness of breath. Denies any edema, orthopnea, paroxysmal nocturnal dyspnea. Overall, he is doing well. Patient Active Problem List Diagnosis Prostate cancer (CMS/HCC) Cerebrovascular accident (CVA) (CMS/HCC) History of diabetes mellitus History of DVT (deep vein thrombosis) History of hypertension History of ischemic left MCA stroke Hypercholesterolemia Hypertension Partial seizure (CMS/HCC) Type 2 diabetes mellitus without complication, with long-term current use of insulin (CMS/HCC) Osteoarthritis of knee Malignant neoplasm of prostate (CMS/HCC) NSTEMI (non-ST elevated myocardial infarction) (CMS/HCC) Chest pain BPH associated with nocturia Essential hypertension, benign Type 2 diabetes mellitus with hyperglycemia (CMS/HCC) Vitamin D deficiency ALLISON on CPAP Acute anemia Chronic systolic heart failure (CMS/HCC) 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/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) Mixed hyperlipidemia Elevated lipoprotein(a) Coronary artery disease involving chefornak coronary artery of chefornak heart without angina pectoris Family History Problem Relation Name Age of Onset Heart disease Mother 58 Heart disease Maternal Grandmother heart trouble Heart disease Maternal Grandfather heart trouble Social History Tobacco Use Smoking status: Former Current packs/day: 0.00 Average packs/day: 0.3 packs/day for 20.0 years (5.0 ttl pk-yrs) Types: Cigarettes Start date: 1994 Quit date: 2014 Years since quittin.1 Passive exposure: Past Smokeless tobacco: Never Vaping [...] Systems Cardiovascular: Positive for dyspnea on exertion. Objective Visit Vitals Ht 1.829 m (6') BMI 32.39 kg/m??? Smoking Status Former BSA 2.34 m??? [...] Check bs once E11.40daily, Disp: , Rfl: carvedilol (Coreg) 6.25 mg tablet, Take 6.25 mg by mouth with breakfast and with evening meal., Disp: , Rfl: cholecalciferol (Vitamin D-3) 50 MCG (1999 UT) tablet, Take by mouth in the morning., Disp: , Rfl: diaper,brief,adult,disposable (Depend Real Fit Brief Men L/XL) misc, 1 Bag in the morning. (Patient not taking: Reported on 04/10/2024), Disp: 32 each, Rfl: 3 Eliquis 5 mg tablet, Take 5 mg by mouth twice a day., Disp: , Rfl: evolocumab 140 mg/mL pen injector, Inject 140 mg under the skin every 14 (fourteen) days., Disp: 2 mL, Rfl: 11 ezetimibe (Zetia) 10 m (more content not included)... [facility] 08-07-2024 Note aPATIENT: Eunice noble DATE OF : 1955 DATE OF VISIT: 08/07/24 Urology Clinic H&P PHYLLIS ACOSTA M.D., F.A.C.S. 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 Eunice Marte is a 68 y.o. -Faroese male with history of HTN, HLD, Diabetes Mellitus Type 2, Stroke (04/2015 resulted in right sided weakness since has improved), CAD, NH in 2021 on ASA 81mg s/p implantable [...] urologist Milvia Daniel MD on 07/06/2022 at [facility] for a total of 24 cores (12 systematic cores x2 and 4 cores obtained from [facility] #1). Pathology per [facility] review revealed acinar adenocarcinoma of the prostate, Menlo 3+4= 7; GG 2 involving 2/13 in [...] distant metastatic disease. Decipher prostate biopsy genomic imaging science professor was obtained on prostate biopsy above, reported [...] nodule, cT2a. I reviewed and discussed outside inside sales consultant note, outside laboratory tests, outside imaging including MRI prostate and PSMA, pathology result of prostate biopsy, and decipher score. Mr. Marte has unfavorable intermediate risk prostate cancer by NCCN criteria since he has 2 intermediate risk factors (PSA 11.09 ng/mL and GG2 prostate cancer), however, decipher genomic imaging science professor designate patient as a high risk with [...] bone mineral density (more content not included)... [facility] 07-02-2024 History of Present illness Narrative [...] PRN. Associated Problem(s): Coronary artery disease involving chefornak coronary artery of chefornak heart without angina pectoris (CMS/HCC) Continue medication [...] Orders Hemoglobin A1c Coronary artery disease involving chefornak coronary artery of chefornak heart without angina pectoris (CMS/HCC) Continue medication and follow with cardiology. Heart failure with improved ejection fraction (HFimpEF) (CMS/HCC) Edema stable and continue medication. documented in this encounter [facility] 06-01-2024 Note [facility] Asher Marte is [...] Active Problem List Diagnosis Prostate cancer ([facility]) Cerebrovascular accident (CVA) ([facility]) History of diabetes mellitus History of DVT (deep vein thrombosis) History of hypertension History of ischemic left MCA stroke Hypercholesterolemia Hypertension Partial seizure ([facility]) Type 2 diabetes mellitus without complication, with long-term current use of insulin ([facility]) Osteoarthritis of knee Malignant neoplasm of prostate ([facility]) NSTEMI (non-ST elevated myocardial infarction) ([facility]) Chest pain BPH associated with nocturia Essential hypertension, benign Type 2 diabetes mellitus with hyperglycemia ([facility]) Vitamin D deficiency ALLISON on CPAP Acute anemia Chronic systolic heart failure ([facility]) 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 [facility] 05-18-2024 History of Present illness Narrative [...] cardiology. Associated Problem(s): Coronary artery disease involving chefornak coronary artery of chefornak heart without angina pectoris ([facility]/HCC) Continue medication and follow with cardiology. Images from the original note were not included. Subjective Patient ID: Eunice Marte is a 68 y.o. male who presents for Follow-up ([facility] f/u). Hospital follow up from 05/09-05/11 for [...] and continue medication. Coronary artery disease involving chefornak coronary artery of chefornak heart without angina pectoris ([facility]/HCC) Continue medication and follow with cardiology. Single subsegmental pulmonary embolism without acute cor pulmonale ([facility]/HCC) - Primary Recent PE and continue Eliquis. Prior DVT years ago and need life long anticoagulation. Pneumonia of right lower lobe due to infectious organism Recent pneumonia and complete levaquin. NSTEMI (non-ST elevated myocardial infarction) (CMS/HCC) Recent admission and cath in February normal. Continue medication and follow with cardiology. documented in this encounter [facility] 05-02-2024 History of Present illness Narrative [...] PRN. Associated Problem(s): Coronary artery disease involving chefornak coronary artery of chefornak heart without angina pectoris (CMS/HCC) Add ozempic [...] Items Addressed This Visit Essential hypertension, benign ([facility]) BP elevated but previously controlled and monitor PRN. Type 2 diabetes mellitus with hyperglycemia ([facility]) BS stable and add ozempic. Relevant Medications semaglutide (Ozempic, 0.25 or 0.5 MG/DOSE,) 2 MG/1.5ML solution pen-injector Coronary artery disease involving chefornak coronary artery of chefornak heart without angina pectoris ([facility]) Add ozempic and follow with cardiology. Heart failure with improved ejection fraction (HFimpEF) ([facility]) - Primary Worsening edema [...] q-tips inside ear. documented in this encounter [facility] 04-17-2024 Note Specialty Pharmacy [place]: [facility] Supervising Physician & Clinic:?? Vivian Billy NP; cardiology Eunice Marte is a 68 y.o. year old male patient with PMH of: Past Medical History: Diagnosis Date Asthma BPH (benign prostatic hyperplasia) CAD (coronary artery disease) CKD (chronic kidney disease), stage III ([facility]) Depression DM (diabetes mellitus) ([facility]) 2007 Type II Erectile dysfunction GERD (gastroesophageal reflux disease) H/O deep venous thrombosis HLD (hyperlipidemia) HTN (hypertension) Myocardial infarction ([facility]) 2021 ALLISON on CPAP Prostate cancer ([facility]) Status post placement of implantable loop recorder Stroke ([facility]) 04/2015 right sided weakness Patient Active Problem List Diagnosis Prostate cancer ([facility]) Cerebrovascular accident (CVA) ([facility]) History of diabetes mellitus History of DVT (deep vein thrombosis) History of hypertension History of ischemic left MCA stroke Hypercholesterolemia Hypertension Partial seizure ([facility]) Type 2 diabetes mellitus without complication, with long-term current use of insulin ([facility]) Osteoarthritis of knee Malignant neoplasm of prostate ([facility]) NSTEMI (non-ST elevated myocardial infarction) ([facility]) Chest pain BPH associated with nocturia Essential hypertension, benign Type 2 diabetes mellitus with hyperglycemia ([facility]) Vitamin D deficiency ALLISON on CPAP Acute anemia Chronic systolic heart failure ([facility]) 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 ? Jacky NievesD, BCACP 04/17/24 2:13 PM [facility] [phone] [facility] 04-17-2024 Note I called the patient and he received the medication and does not have any questions at this time. Antoinette Gan CPhT [facility] 05/01/24 2:[address] [facility] 04-17-2024 Note Received paper copy of [...] the consent form. Will prepare appeal. July Rankin PharmD, JEFFREY 04/24/24 11:31 AM [facility] [phone] [facility] 04-17-2024 Note Prior Authorization for Rep[facility] has been denied on 04/20/24. Due to the Lipid panel on 03/15/24 being normal, Will fax appeal with LPA and ASCVD-related documents. Contacted prescriber and was told that due to the ASCVD history the goal for the LDL is actually <55, making him a candidate for the medication. Follow up on 04/26/24. Rajiv Lora, Rerecording Mixer [facility], [id number] 04/24/24 10:[address] [facility] 04-17-2024 Note PA still in process, follow up on 04/23 for PA status. Rajiv Lora, Rerecording Mixer [facility], [id number] 04/19/24 11:[address] [facility] 04-17-2024 Note New script for Repat wilhelm received to treat E78.2, I25.10 mixed hyperlipidemia and Atherosclerotic heart disease. PA required? Yes Routed to [facility] for initial workup. Reddy Barnard, [facility] 04/17/24 at 11:[address] [facility] 04-17-2024 Note Called to try to do xnjb-ql-pldg and it was approved for a year. Medication must be filled at [facility] specialty pharmacy. Will ask Rx to be sent there and follow-up to make sure the patient receives it. July Rankin PharmD, JEFFREY 04/25/24 3:05 PM [facility] [phone] [facility] 04-17-2024 Note PA was submitted via CM, waiting on a determination. Antoinette Gan, [facility] 04/17/24 3:[address] [facility] 04-17-2024 Note PharmD Consult - PCS K9i Provider: Vivian Billy Department: Cardiology Eunice [facility] is a 68 y.o. male with PMH [...] LDL, Apo-B, and Lp(a). Rx sent to [facility] to determine coverage and provide education to patient. 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 04/17/24 [facility] 02-02-2023 Hospital Discharge instructions Patient Education [...] under a microscope. This is called the Menlo score and the total score can range from 6 10, indicating how likely it is that the cancer will spread (metastasize) to other parts of the body. The higher the score, the greater the likelihood that the cancer will spread. Menlo 6 or lower: This indicates that the cancer cells look similar to normal prostate cells (well differentiated). Menlo 7: This indicates that the cancer cells [...] stress of having cancer. General instructions Take utql-jqh-rjydkqn and prescription medicines only as told by your health care provider. If you have to go to the hospital, notify your cancer specialist (oncologist). Keep all follow-up visits. This is important. Where to find more information [place] [employer]: www.cancer.org [place] [employer] of Clinical Oncology: www.cancer.net National Cancer Red Level: www.cancer.gov Contact a health care provider if: [...] provider. Document Revised: 11/04/2021 Document Reviewed: 11/04/2021 [employer] Patient Education 2022 [employer]. Follow Up Care 11/03/2022 08:38:11 With:Dewey COTTO, ARIAN Alegria, URO Address: When: Unknown [facility] 11-03-2022 Hospital Discharge instructions Patient Education 11/03/2022 [...] who: Are older than age 65. Are -Faroese. Are obese. Have a family history of [...] cells. Follow these instructions at home: Take sijc-wfg-izrgjbc and prescription medicines only as told by [...] 08/08/2006 Document Revised: 07/21/2018 Document Reviewed: 04/18/2017 [employer] Patient Education 2020 [employer]. Follow Up Care 10/06/2022 08:46:11 With:Dewey COTTO, ARIAN Alegria, URO Address: When: Unknown [facility] 10-06-2022 Hospital Discharge instructions Patient Education 10/06/2022 [...] 07/25/2013 Document Revised: 03/28/2019 Document Reviewed: 03/28/2019 [employer] Patient Education 2020 [employer]. 10/06/2022 08:07:38 Brachytherapy for Prostate Cancer Brachytherapy [...] including vitamins, herbs, eye drops, creams, and xylv-zjg-vclbnhw medicines. Any problems you or family members [...] 01/16/2007 Document Revised: 07/21/2018 Document Reviewed: 08/17/2017 [employer] Patient Education 2020 [employer]. 10/06/2022 08:07:36 Laparoscopic Prostatectomy Laparoscopic Prostatectomy Laparoscopic [...] including vitamins, herbs, eye drops, creams, and xwwd-tzn-euiqqbm medicines. Any problems you or family members [...] 08/08/2006 Document Revised: 07/21/2018 Document Reviewed: 07/25/2017 [employer] Patient Education 2020 [employer]. 10/06/2022 07:50:11 Prostate Cancer Prostate Cancer The [...] who: Are older than age 65. Are -Faroese. Are obese. Have a family history of [...] cells. Follow these instructions at home: Take mdnq-ybb-ayhtooh and prescription medicines only as told by [...] 08/08/2006 Document Revised: 07/21/2018 Document Reviewed: 04/18/2017 [employer] Patient Education 2020 [employer]. Follow Up Care 08/04/2022 10:29:21 With:Milvia Palomo MD, URL, URO Address: When: Unknown [facility] 08-04-2022 Hospital Discharge instructions Patient Education 08/04/2022 [...] including vitamins, herbs, eye drops, creams, and hfnx-ayt-rwkmtyl medicines. Any problems you or family members [...] 01/16/2007 Document Revised: 07/21/2018 Document Reviewed: 08/17/2017 [employer] Patient Education 2020 [employer]. Follow Up Care 06/02/2022 10:42:40 With:Dewey COTTO, ARIAN Alegria, URO Address: When:1 month Comments:Discuss PSMA PET scan & treatment options [facility] 07-21-2022 Note OPERATIVE NOTE OPERATION DATE: 07/21/2022 [...] in good condition. CC: Adilson Salazar M.D. [facility] 07-06-2022 Hospital Discharge instructions Patient Education [...] for your post-operative appointment in 1-2 weeks [phone] or [phone] Follow Up Care 06/02/2022 10:25:59 With:Milvia Palomo Address: [address] [place] [address]- [phone] Business (1) [address], [address] [address] [phone] Business (1) When: Unknown Comments:Office to followup appointment in 2 weeks for pathology review [facility] 07-06-2022 Evaluation + Plan note Extrac shelby from: Title:Post-anesthesia - General Author:Scout Dumont DO Date:07/06/22 Plan Transfer/ Discharge: Condition stable. Extracted from: Title:EU - MRI fusion transp erineal prostate biopsy Author:Milvia Palomo MD Date:07/06/22 Impression and Plan Diagnosis Elevated PSA (PKE31-KG R97.20, Discharge, Medical). Diagnosis Elevated PSA (LBH86-NY R97.20, Discharge, Medical). Counseled: Patient, Family. Extracted from: Title:Pre-anesthesia - Adult Author:Scout Lamas Jr., DO Date:07/06/22 Plan [place] [employer] Anesthesiologists (ASA) physical status classification: Class III. Anesthetic Preoperative Plan Anesthesia: Monitored anesthesia care. Anesthetic plan, risks, benefits, and alternatives discussed with the patient and/or family. Patient verbalized understanding. Adverse reactions, complications, and alternatives discujssed. Consent signed and on chart.. Future Appointments Appointment Date:07/21/2022 09:30:00 AM Scheduled Provider:Milvia Palomo MD Location:[facility] Appointment Type:URO Office Visit Appointment Date:10/12/2022 10:30:00 AM Scheduled Provider:Ciro Blanco MD, Asim Singleton Location:[facility] Appointment Type:URO Office Visit [facility]11-14-2022 Note [id number]:127[facility] 06-25-2022 NoteChief Complaint consultation [...] mL, NEB, BID c (more content not included)...[facility] Result Comment: Electronically Signed By: BASIL COTTO, Curtis Monzon\Date and Time Signed: 06/25/22 15:55 [id number] Note [id number]:127[facility] 06-02-2022 Hospital Discharge instructions Patient Education [...] Follow these instructions at home: Medicines Take pyjl-aff-ybzpftl and prescription medicines only as told by [...] 08/05/2001 Document Revised: 07/21/2018 Document Reviewed: 08/24/2017 [employer] Patient Education 2020 [employer]. Follow Up Care 04/21/2022 12:43:56 With:Dewey COTTO, ARIAN Alegria, URO Address: [address], [facility] [place] [address] [phone] When: Unknown [facility] 08-31-2022 Hospital Discharge instructions Patient Education 04/21/2022 [...] have oneof these risk factors: ?Being of -Faroese descent. ?Having a family history of prostate [...] you: Are older than age 55. Are -Faroese. Have a father, brother, or uncle who [...] 05/19/2018 Document Revised: 07/21/2018 Document Reviewed: 05/19/2018 [employer] Patient Education 2020 [employer]. Follow Up Care 03/08/2022 11:37:35 With:Dewey COTTO, Milvia Lucia, UR, URO Address: When: Unknown [facility] evaluation + Plan note Future Appointments Appointment Date:05/12/2022 10:45:00 AM Scheduled Provider:Milvia Palomo MD Location:[facility] Appointment Type:URO Office Visit Appointment Date:10/12/2022 10:30:00 AM Scheduled Provider:Asim Tanner Jr., MD Location:[facility] Appointment Type:URO Office Visit [facility] evaluation + Plan note Future Appointments Appointment Date:06/29/2022 03:30:00 PM Scheduled Provider: Location:[facility] Appointment Type:Surgical PAT FT Appointment Date:07/06/2022 01:30:00 PM Scheduled Provider: Location:[facility] Appointment Type:Surgery FT Appointment Date:07/21/2022 09:30:00 AM Scheduled Provider:Milvia Palomo MD Location:[facility] Appointment Type:URO Office Visit Appointment Date:10/12/2022 10:30:00 AM Scheduled Provider:Asim Tanner Jr., MD Location:[facility] Appointment Type:URO Office Visit [facility] evaluation + Plan note Future Appointments Appointment Date:06/29/2022 03:00:00 PM Scheduled Provider: Location:[facility] Appointment Type:Surgery PAT COVID Testing Appointment Date:06/29/2022 03:30:00 PM Scheduled Provider: Location:[facility] Appointment Type:Surgical PAT FT Appointment Date:07/06/2022 01:30:00 PM Scheduled Provider: Location:[facility] Appointment Type:Surgery FT Appointment Date:07/21/2022 09:30:00 AM Scheduled Provider:Milvia Palomo MD Location:[facility] Appointment Type:URO Office Visit Appointment Date:10/12/2022 10:30:00 AM Scheduled Provider:Asim Tanner Jr., MD Location:[facility] Appointment Type:URO Office Visit General [facility] Evaluation + Plan note Future Appointments Appointment Date:07/06/2022 01:30:00 PM Scheduled Provider: Location:[facility] Appointment Type:Surgery FT Appointment Date:07/21/2022 09:30:00 AM Scheduled Provider:Milvia Palomo MD Location:[facility] Appointment Type:URO Office Visit Appointment Date:10/12/2022 10:30:00 AM Scheduled Provider:Asim Tanner Jr., MD Location:[facility] App[facility]ments Appointment Date:09/15/2022 10:30:00 AM Scheduled Provider:Milvia Palomo MD Location:[facility] Appointment Type:URO Office Visit [facility] evaluation + Plan note Future Appointments Appointment Date:10/06/2022 07:45:00 AM Scheduled Provider:Milvia Palomo MD Location:[facility] App[facility]ment [facility] App[facility]ments Appointment Date:11/03/2022 10:10:00 AM Scheduled Provider:Milvia Palomo MD Location:[facility] Appointment Type:URO Office Visit Diagnostic Tests Pending * PSA Free & Total 10/06/22 [facility] evaluation + Plan note Future Appointments Appointment Date:02/02/2023 10:15:00 AM Scheduled Provider:Milvia Palomo MD Location:[facility] Appointment Type:URO Office Visit [facility] evaluation noteNo assessment information available [facility] Work Phone: Evaluation note* Diagnosis Type 2 diabetes mellitus with hyperglycemia, with long-term current use of insulin (CMS/HCC) documented in this encounter [facility]* Diagnosis Type 2 diabetes mellitus with hyperglycemia, with long-term current use of insulin (CMS/HCC)- Primary Essential hypertension, benign (CMS/HCC) Essential hypertension, benign Type 2 diabetes mellitus with hyperglycemia, with long-term current use of insulin (CMS/HCC)- Primary Essential hypertension, benign (CMS/HCC) Essential hypertension, benign intermediate (current) use of insulin (Z79.4) Prostatic cancer (CMS/HCC) Malignant neoplasm of prostate Type 2 diabetes mellitus with hyperglycemia, with long-term current use of insulin (CMS/HCC)- Primary Essential hypertension, benign (CMS/HCC) Essential hypertension, benign Gastroesophageal reflux disease without esophagitis Esophageal reflux Prostatic cancer (CMS/HCC) Malignant neoplasm of prostate Coronary artery disease involving [place] coronary artery of [place] heart without angina pectoris (CMS/HCC)- Primary Type 2 diabetes mellitus with hyperglycemia, with long-term current use of insulin (CMS/HCC) Essential hypertension, benign (CMS/HCC) Essential hypertension, benign Heart failure with improved ejection fraction (HFimpEF) (CMS/HCC)- Primary Type 2 diabetes mellitus with hyperglycemia, with long-term current use of insulin (CMS/HCC) Coronary artery disease involving [place] coronary artery of [place] heart without angina pectoris (CMS/HCC) Essential hypertension, benign (CMS/HCC) Essential hypertension, benign Bilateral impacted cerumen Impacted cerumen Single subsegmental pulmonary embolism without acute cor pulmonale (CMS/HCC)- Primary Pneumonia of right lower lobe due to infectious organism NSTEMI (non-ST elevated myocardial infarction) (CMS/HCC) Acute myocardial infarction, subendocardial infarction, episode of care unspecified Coronary artery disease involving [place] coronary artery of [place] heart without angina pectoris (CMS/HCC) Type 2 diabetes mellitus with hyperglycemia, with long-term current use of insulin (CMS/HCC) Type 2 diabetes mellitus with hyperglycemia, with long-term current use of insulin (CMS/HCC)- Primary Essential hypertension, benign (CMS/HCC) Essential hypertension, benign Heart failure with improved ejection fraction (HFimpEF) ([facility]) Coronary artery disease involving [place] coronary artery of [place] heart without angina pectoris ([facility]) [facility]* Diagnosis Heart failure with improved ejection fraction (HFimpEF) (CMS/[facility])- Primary Type 2 diabetes mellitus with hyperglycemia, with long-term current use of insulin ([facility]) Coronary artery disease involving [place] coronary artery of [place] heart without angina pectoris ([facility]) Essential hypertension, benign ([facility]) Essential hypertension, benign Bilateral impacted cerumen Impacted cerumen documented in this encounter [facility]* Diagnosis Single subsegmental pulmonary embolism without acute cor pulmonale ([facility])- Primary Pneumonia of right lower lobe due to infectious organism NSTEMI (non-ST elevated myocardial infarction) ([facility]) Acute myocardial infarction, subendocardial infarction, episode of care unspecified Coronary artery disease involving [place] coronary artery of [place] heart without angina pectoris ([facility]) Type 2 diabetes mellitus with hyperglycemia, with long-term current use of insulin ([facility]) documented in this encounter [facility]* Diagnosis Type 2 diabetes mellitus with hyperglycemia, with long-term current use of insulin ([facility])- Primary Essential hypertension, benign ([facility]) Essential hypertension, benign Type 2 diabetes mellitus with hyperglycemia, with long-term current use of insulin ([facility])- Primary Essential hypertension, benign ([facility]) Essential hypertension, benign intermediate (current) use of insulin (Z79.4) Prostatic cancer ([facility]) Malignant neoplasm of prostate Type 2 diabetes mellitus with hyperglycemia, with long-term current use of insulin ([facility])- Primary Essential hypertension, benign ([facility]) Essential hypertension, benign Gastroesophageal reflux disease without esophagitis Esophageal reflux Prostatic cancer ([facility]) Malignant neoplasm of prostate Coronary artery disease involving [place] coronary artery of [place] heart without angina pectoris ([facility])- Primary Type 2 diabetes mellitus with hyperglycemia, with long-term current use of insulin ([facility]) Essential hypertension, benign ([facility]) Essential hypertension, benign Heart failure with improved ejection fraction (HFimpEF) ([facility])- Primary Type 2 diabetes mellitus with hyperglycemia, with long-term current use of insulin ([facility]) Coronary artery disease involving [place] coronary artery of [place] heart without angina pectoris ([facility]) Essential hypertension, benign (CMS/HCC) Essential hypertension, benign Bilateral impacted cerumen Impacted cerumen Single subsegmental pulmonary embolism without acute cor pulmonale ([facility]/HCC)- Primary Pneumonia of right lower lobe due to infectious organism NSTEMI (non-ST elevated myocardial infarction) ([facility]) Acute myocardial infarction, subendocardial infarction, episode of care unspecified Coronary artery disease involving [place] coronary artery of [place] heart without angina pectoris ([facility]) Type 2 diabetes mellitus with hyperglycemia, with long-term current use of insulin ([facility]) Type 2 diabetes mellitus with hyperglycemia, with long-term current use of insulin ([facility])- Primary Essential hypertension, benign (CMS/[facility]) Essential hypertension, benign Heart failure with improved ejection fraction (HFimpEF) ([facility]) Coronary artery disease involving [place] coronary artery of [place] heart without angina pectoris ([facility]) Type 2 diabetes mellitus with hyperglycemia, with long-term current use of insulin ([facility])- Primary Diverticulitis Diverticulitis of colon (without mention of hemorrhage) Essential hypertension, benign (CMS/HCC) Essential hypertension, benign Prostatic cancer ([facility]/HCC) Malignant neoplasm of prostate Multi-infarct dementia, uncomplicated (CMS/[facility]) Vascular dementia, uncomplicated Heart failure with improved ejection fraction (HFimpEF) ([facility]) documented in [facility] encounter [facility]* Diagnosis Type 2 diabetes mellitus with hyperglycemia, with long-term current use of insulin ([facility])- Primary Essential hypertension, benign (CMS/HCC) Essential hypertension, benign Type 2 diabetes mellitus with hyperglycemia, with long-term current use of insulin ([facility])- Primary Essential hypertension, benign (CMS/HCC) Essential hypertension, benign 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) Prostatic cancer ([facility]) Malignant neoplasm of prostate Type 2 diabetes mellitus with hyperglycemia, with long-term current use of insulin ([facility]/HCC)- Primary Essential hypertension, benign (CMS/HCC) Essential hypertension, benign Gastroesophageal reflux disease without esophagitis Esophageal reflux Prostatic cancer (CMS/HCC) Malignant neoplasm of prostate Coronary artery disease involving [place] coronary artery of [place] heart without angina pectoris ([facility])- Primary Type 2 diabetes mellitus with hyperglycemia, with long-term current use of insulin ([facility]) Essential hypertension, benign (CMS/HCC) Essential hypertension, benign Heart failure with improved ejection fraction (HFimpEF) (CMS/HCC)- Primary Type 2 diabetes mellitus with hyperglycemia, with long-term current use of insulin ([facility]) Coronary artery disease involving [place] coronary artery of [place] heart without angina pectoris (CMS/HCC) Essential hypertension, benign (CMS/HCC) Essential hypertension, benign Bilateral impacted cerumen Impacted cerumen Single subsegmental pulmonary embolism without acute cor pulmonale ([facility]/HCC)- Primary Pneumonia of right lower lobe due to infectious organism NSTEMI (non-ST elevated myocardial infarction) ([facility]) Acute myocardial infarction, subendocardial infarction, episode of care unspecified Coronary artery disease involving [place] coronary artery of [place] heart without angina pectoris ([facility]) Type 2 diabetes mellitus with hyperglycemia, with long-term current use of insulin ([facility]) Type 2 diabetes mellitus with hyperglycemia, with long-term current use of insulin ([facility])- Primary Essential hypertension, benign (CMS/HCC) Essential hypertension, benign Heart failure with improved ejection fraction (HFimpEF) ([facility]/HCC) Coronary artery disease involving [place] coronary artery of [place] heart without angina pectoris ([facility]) Type 2 diabetes mellitus with hyperglycemia, with long-term current use of insulin ([facility])- Primary Diverticulitis Diverticulitis of colon (without mention of hemorrhage) Essential hypertension, benign (CMS/HCC) Essential hypertension, benign Prostatic cancer ([facility]) Malignant neoplasm of prostate Multi-infarct dementia, uncomplicated (CMS/[facility]) Vascular dementia, uncomplicated Heart failure with improved ejection fraction (HFimpEF) ([facility]) Essential hypertension, benign ([facility]/HCC)- Primary Essential hypertension, benign Type 2 diabetes mellitus with hyperglycemia, with long-term current use of insulin ([facility]) Heart failure with improved ejection fraction (HFimpEF) ([facility]) Coronary artery disease involving [place] coronary artery of [place] heart without angina pectoris ([facility]) Acute non-recurrent pansinusitis documented in this encounter [facility]* Diagnosis Type 2 diabetes mellitus with hyperglycemia, with long-term current use of insulin ([facility])- Primary Essential hypertension, benign Essential hypertension, benign Type 2 diabetes mellitus with hyperglycemia, with long-term current use of insulin (HCC)- Primary Essential hypertension, benign 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 hypertension, benign 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) Prostatic cancer (HCC) Malignant neoplasm of prostate Type 2 diabetes mellitus with hyperglycemia, with long-term current use of insulin (HCC)- Primary Essential hypertension, benign Essential hypertension, benign Gastroesophageal reflux disease without esophagitis Esophageal reflux Prostatic cancer (HCC) Malignant neoplasm of prostate Coronary artery disease involving [place] coronary artery of [place] heart without angina pectoris- Primary Type 2 diabetes mellitus with hyperglycemia, with long-term current use of insulin (HCC) Essential hypertension, benign Essential hypertension, benign Heart failure with improved ejection fraction (HFimpEF) (HCC)- Primary Type 2 diabetes mellitus with hyperglycemia, with long-term current use of insulin (HCC) Coronary artery disease involving [place] coronary artery of [place] heart without angina pectoris Essential hypertension, benign Essential hypertension, benign Bilateral impacted cerumen Impacted cerumen Single subsegmental pulmonary embolism without acute cor pulmonale ([facility])- Primary Pneumonia of right lower lobe due to infectious organism NSTEMI (non-ST elevated myocardial infarction) ([facility]) Acute myocardial infarction, subendocardial infarction, episode of care unspecified Coronary artery disease involving [place] coronary artery of [place] heart without angina pectoris Type 2 diabetes mellitus with hyperglycemia, with long-term current use of insulin ([facility]) Type 2 diabetes mellitus with hyperglycemia, with long-term current use of insulin (HCC)- Primary Essential hypertension, benign Essential hypertension, benign Heart failure with improved ejection fraction (HFimpEF) (HCC) Coronary artery disease involving [place] coronary artery of [place] heart without angina pectoris Type 2 diabetes mellitus with hyperglycemia, with long-term current use of insulin (HCC)- Primary Diverticulitis Diverticulitis of colon (without mention of hemorrhage) Essential hypertension, benign Essential hypertension, benign Prostatic cancer (HCC) Malignant neoplasm of prostate Multi-infarct dementia, uncomplicated (HCC) Vascular dementia, uncomplicated Heart failure with improved ejection fraction (HFimpEF) (HCC) Essential hypertension, benign- Primary Essential hypertension, benign Type 2 diabetes mellitus with hyperglycemia, with long-term current use of insulin (HCC) Heart failure with improved ejection fraction (HFimpEF) (HCC) Coronary artery disease involving [place] coronary artery of [place] heart without angina pectoris Acute non-recurrent pansinusitis Type 2 diabetes mellitus with hyperglycemia, with long-term current use of insulin (HCC)- Primary Essential hypertension, benign Essential hypertension, benign Mild persistent asthma without complication (HCC) Heart failure with improved ejection fraction (HFimpEF) (HCC) Coronary artery disease involving [place] coronary artery of [place] heart without angina pectoris [facility] Narrative No data available for this section [facility] Discharge instructions No data available for this section General Surgery [facility] Progress note No data available for this section [facility] Discharge Instructions * Discharge Instr - JOSIE* [...] Extended Emergency Contact Information Primary Emergency Contact: [facility] Relation: Spouse Credit Underwriter needed? No Past Surgical History: No past [...] MENTAL STATUS:} IV Access: { JOSIE IV ACCESS:039595265} Nursing Mobility/ADLs: Walking {CHP DME ADLs:856482052} Transfer {CHP DME ADLs:111725749} Bathing {CHP DME ADLs:587231146} Dressing {CHP DME ADLs:347578138} Toileting {CHP DME ADLs:025066397} Feeding {CHP DME ADLs:830683858} Forgesmith {CHP DME ADLs:414476871} Med Delivery { JOSIE MED Delivery:200946576} Wound Care Documentation and Therapy: Elimination: Continence: Bowel: {YES / NO:} Bladder: {YES / NO:} Urinary Catheter: {Urinary Catheter:061057090} Colostomy/Ileostomy/Ileal Conduit: {YES / NO:} Date of Last BM: Intake/Output Summary (Last 24 hours) at 06/08/2019 1738 Last data filed at 06/08/2019 1600 Gross per 24 hour Intake Output 950 ml Net -950 ml I/O last 3 completed shifts: In: - Out: 950 [Urine:950] Safety Concerns: { JOSIE Safety Concerns:723082350} Impairments/Disabilities: { JOSIE Impairments/Disabilities:083489231} Nutrition Therapy: Current Nutrition Therapy: { JOSIE Diet List:725742618} Routes of Feeding: {CHP DME Other Feedings:469532606} Liquids: {Information Systems Security Officer liquid thickness:27488} Daily Fluid Restriction: {CHP DME Yes amt example:858737203} Last Modified Barium Swallow with Video (Video Swallowing Test): {Done Not Done Date:} Treatments at the Time of Hospital Discharge: Respiratory Treatments: Oxygen Therapy: {Therapy; copd oxygen:71563} Ventilator: { CC Vent List:682237980} Rehab Therapies: {THERAPEUTIC INTERVENTION:7275687230} Weight Bearing Status/Restrictions: { CC Weight Bearin} Other Medical Equipment (for information only, NOT a DME order): {EQUIPMENT:862078699} Other Treatments: Patient's personal belongings (please select all that are sent with patient): {CHP DME Belongings:497698581} RN SIGNATURE: {Esignature:795044689} CASE MANAGEMENT/SOCIAL WORK SECTION Inpatient Status Date: 06/05/2019 Readmission Risk Assessment Score: Readmission Risk Risk of Unplanned Readmission: 13 Discharging to Facility/ [facility]: [facility] Address: Fax: Dialysis Facility (if applicable) Name: Address: Dialysis Schedule: Phone: Fax: Sales Development Associate/News Photographer signature: at2:35 PM PHYSICIAN SECTION Prognosis: Good [...] PM EDT CLINICAL PHARMACY NOTE: MEDS TO [facility] Select Patient?: No Total # [...] belongings packed and sent. Report called to [employer]. * Kosta Macedo PTA - 06/08/2019 2:39 PM EDT Physical Therapy Facility/Department: [address] Daily Treatment Note NAME: Eunice Marte [...] Type 2 Diabetes _x__ Be safe with [place] teaching sheet / [facility] Disposal of Household Generated Sharps _x__ Type 2 Diabetes and Adding Insulin fold out with survival skills Contact number provided. Patient stated willing to follow up for outpatient DMED / work with RD forbetter meal planing. Refer to Patient Education activity for more details. LUCRECIA CAED RN CDE * Keysha Urena SLP - 06/08/2019 11:58 AM EDT Speech Language Pathology Speech Language Pathology [facility] Cognitive Treatment Note Date: 06/08/2019 Patient [...] (100%) withmod verbal cues. State the Category ([place]): Pt stated 1/10 (10%) independently, increased to [...] Treatment completed by: Completed by: Erin Andrews, Precipitation Equipment Tender Clinician Cosigned By: Keysha Urena M.S.CCC/CHANGEOVER OPERATOR * Kosta Macedo PTA - 06/08/2019 10:31 AM EDT DATE: 06/08/2019 NAME: Eunice Marte : 1955 Patient not seen this date for Physical Therapy due to: [] Blood transfusion in progress [] Hemodialysis [] Patient Declined [] Spine Precautions [] Strict Bedrest [x] Surgery/ Procedure VL DUP LOWER EXTREMITY VENOUS BILATERAL (Order #[id number]) on 06/08/19 [] Testing [] Other [] [...] Name: Eunice Marte Patient : 1955 Room/Bed: [address] [place] [address] CHIEF COMPLAINT: Complaining of left facial droop, left-sided hemiparesis, slurred speech INTERVAL HISTORY: Admission (06/05/2019) Case of a 63 y.o. male patient with PMH of HTN, Diabetes, Stroke (4 years ago) who came to ED at [facility] after having a presentation of acute onset of left- sided weakness that began around 5 PM on June 05, 2019. Patient refers that he was around his house around that area he was feeling weak but then noticed that he was slurring the speech, have a left-sided facial droop, left- sided hemiparesis. At the [facility] NIH was calculated at 8 and decision was to give TPA. Patient was life flighted to [place] and was given hydralazine to control his [...] were no complications encountered. Cardiovascular Diseases Fellow [facility] CONSTITUTIONAL: negative for fatigue and malaise EYES: [...] Neurology Resident PGY-3 Neuro Critical Care Pager [phone] 06/08/2019 6:04 AM Associated attestation - Omer [...] signs taken. Pt sleepy, but easy to arouse.Tester Operator called to let her know procedure was done. 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/ Procedure--labor relations manager this afternoon [] Testing [] Other [...] area with 2% Chlorhexidine Gluconate * Frances Schulz SLP - 06/07/2019 11:43 AM EDT Speech Language Pathology Speech Language Pathology [facility] Speech / Cognitive Treatment Note Date: 06/07/2019 Patient s Name: Eunice Marte Diagnosis: Patient Active Problem List Diagnosis Code Cerebrovascular accident (CVA) ([facility]) I63.9 Acute left hemiparesis ([facility]) G81.94 History of ischemic left MCA stroke Z86.73 History of diabetes mellitus Z86.39 History of hypertension Z86.79 Pain: denies Cognitive Treatment Treatment time: 0696-9703 Subjective: [] Alert [] Cooperative [] Confused [...] x2 verbal repetitions. Organization: State the Category, [place]: Pt provided three items and instructed to state the category. Pt completed activity with 60% (3/5) accuracy independently, increased to 100% (5/5) with mod-max verbal cues and 1-2x verbal repetitions. Add to the Category, [place]: Pt instructed to name three additional items [...] days. Treatment completed by: Frances Schulz M.S. [facility]-CHANGEOVER OPERATOR * Spike Worthy, DO - 06/07/2019 8:02 AM EDT Daily Progress Note Neuro Critical Care Patient Name: Eunice Marte Patient : 1955 Room/Bed: [facility]/0515- CHIEF COMPLAINT: Complaining of left facial droop, left-sided hemiparesis, slurred speech INTERVAL HISTORY: Admission (06/05/2019) Case of a 63 y.o. male patient with PMH of HTN, Diabetes, Stroke (4 years ago) who came to ED at [facility] after having a presentation of acute onset of left- sided weakness that began around 5 PM on June 05, 2019. Patient refers that he was around his house around that area he was feeling weak but then noticed that he was slurring the speech, have a left-sided facial droop, left- sided hemiparesis. At the [facility] NIH was calculated at 8 and decision was to give TPA. Patient was life flighted to [place] and was given hydralazine to control his [...] (!) 168/84 101 18 (!) 89 % 06/06/198 (!) 173/78 105 20 (!) 89 % [...] Risk) RECENT LABS: DATA CBC: Recent Labs 06/05/19205306/06/1901 06/07/19425 WBC 8.0 7.3 7.4 HGB 15.6 16.4 [...] Neurology Resident PGY-2 Neuro Critical Care Pager [phone] 06/07/2019 8:02 AM Associated attestation - Omer Zambrano MD - 06/07/2019 4:13 PM EDT NCC 63-year-old patient admitted to neuro ICU status post IV TPA administration for acute left hemiparesis Hx of old left cerebral infarction DM, HTN, HLD MRI brain with diffusion restriction, acute stroke in R jeffrey ventricular and BG area CTA showed no acute LVO, multifocal CONTRACTING EXECUTIVE stenotic area seen Neuro deficits of left [...] Ambulation Assistance: Independent Transfer Assistance: Independent Active Vocal Music Instructor: Yes Mode of Transportation: Car Occupation: Retired [...] Management Training, Self-Care / ADL, Neuromuscular Re-education [facility] Inpatient Daily Activity Raw Score: 20 (06/06/19 1233) AM-PAC Inpatient ADL T-Scale Score : 42.03 (06/06/19 123) ADL Inpatient CMS 0-100% Score: 38.32 (06/06/19 123) ADL Inpatient CMS G-Code Modifier : CJ [...] 06/06/2019 11:52 AM EDT Physical Therapy Facility/Department: [address] Initial Assessment NAME: Eunice Marte : 1955 Chief Complaint Patient presents with Cerebrovascular Accident The patient is a 63 y.o. male presented with acute onset of L sided weakness... He has had TIAs in the past, and states that this felt somewhat similar. He was brought to [place] ED where NIH was calculated to be [...] Ambulation Assistance: Independent Transfer Assistance: Independent Active Vocal Music Instructor: Yes Mode of Transportation: Car Occupation: Retired [...] Strength LUE: WFL Comment: pt c/o decreased babbitter strength for 2-3 days with dropping of [...] Restraints Initially in place: No AM-PAC Score AM-[facility] Inpatient Mobility Raw Score : 19 (06/06/19 1146) [facility] Inpatient T-Scale Score : 45.44 (06/06/19 1146) Mobility Inpatient CMS 0-100% Score: 41.77 (06/06/19 1146) Mobility Inpatient CMS G-Code Modifier : CK (06/06/19 1146) Goals Short term goals Time Frame for [...] 10:16 AM EDT Speech Language Pathology Facility/Department: [address] Initial Speech/Language/Cognitive Assessment NAME: Eunice Marte : 1955 ADMISSION DATE: 06/05/2019 ADMITTING DIAGNOSIS: has Stroke determined by clinical assessment ([facility]) on their problem list. Date of Eval: [...] felt somewhat similar. He was brought to [place] ED where NIH was calculated to be [...] address noted deficits. Education provided. Recommendations: Requires CHANGEOVER OPERATOR Intervention: Yes Duration/Frequency of Treatment: 3-5 [...] 0911 Minutes 13 Completed by: Erin Andrews, Precipitation Equipment Tender Clinician Cosigned By: Keysha Urena M.S.CCC/CHANGEOVER OPERATOR 06/06/2019 10:16 AM * Suellen Allen [...] years ago) who came to ED at [facility] after having a presentation of acute onset of left- sided weakness that began around 5 PM on June 05, 2019. Patient refers that he was around his house around that area he was feeling weak but then noticed that he was slurring the speech, have a left-sided facial droop, left- sided hemiparesis. At the [facility] NIH was calculated at 8 and decision was to give TPA. Patient was life flighted to [place] and was given hydralazine to control his [...] Neurology Resident PGY-3 Neuro Critical Care Pager [phone] 06/06/2019 5:57 AM Associated attestation - Omer Zambrano MD - 06/06/2019 5:24 PM EDT Patient admitted overnight, staffed this am. H & P from overnight addended. M Sudheer Zambrano MD * Gonzales Camarena MD - 06/05/2019 8:42 PM EDT [employer] [employer] Flight Physician Pt Name:Eunice Marte Birthdate 1955 Date of evaluation: 06/05/19 PCP: Adilson Salazar MD REASON FOR FLIGHT Patient was transported from [facility] to [place] due to stroke. Flight was indicated for further care at [facility] HISTORY OF PRESENT ILLNESS Eunice Marte is a 63 y.o. male who acute onset left-sided upper and lower extremity weakness while walking in his yard. Symptoms occurred at approximately 5 PM this afternoon. Patient's is arrived to [facility] emergency department where he was found to [...] CRITICAL CARE: None Destination Patient arrived at [place] in stable condition no significant changes in [...] FoundDocuments on File Type Date Recorded Patient Patternmaker Helper Expl anation Advance Directives and Living Will Power of Wedding Decorator Latest Code Status on File Code Status [...] ([facility]) Oscar Harp MD [address] [place] [address] [facility] Reason Comments Follow-up 3 m Fatigue No energy Reason Comments Follow-up Edema Hands and feet Shortness of Breath Winded easily Reason Comments Follow-up [facility] f/u Reason Comments hsp follow up Reason Comments Follow-up 3m Cough Reason Comments Follow-up 3m Sinusitis (unrecognized sect ion and content) No Status Records FoundNo Status Records FoundNo Status Records FoundNo Status Records FoundNo Status Records FoundNo Status Records Found INFORMATION SOURCE (unrecogn ized section and content) DATE CREATED AUTHOR 06/19/2019 [facility] DATE CREATED AUTHOR AUTHOR'S ORGANIZ ATION 11/21/2022 [facility] DATE CREATED AUTHOR AUTHOR'S ORGANIZ ATION 03/29/2023 [facility] DATE CREATED AUTHOR AUTHOR'S ORGANIZ ATION 10/07/2024 [facility] DATE CREATED AUTHOR AUTHOR'S ORGANIZ ATION 04/10/2025 [facility] EPIC DATE CREATED AUTHOR AUTHOR'S ORGANIZ ATION 04/15/2025 [facility] Care Team (unrecognized sect ion and content) Team Status: Inactive Member Role Status Dates Adilson Salazar MD Primary Care Provider Active Milvia Palomo MD Attending Provider Active Team Status: Active Member Role Status Dates Adilson Salazar MD Primary Care Provider Active Animal Treatment Investigator Relationship Specialty Start Date End Date Adilson Salazar MD PCP - General Family Medicine 05/25/23 Animal Treatment Investigator Relationship Specialty Start Date End Date Adilson Salazar MD PCP - General Family Medicine 05/25/23 Animal Treatment Investigator Relationship Specialty Start Date End Date Adilson Salazar MD [address] [place] [address] PCP - General Family Medicine 03/28/24 Animal Treatment Investigator Relationship Specialty Start Date End Date Adilson Salazar MD [address] [place] [address] PCP - General Family Medicine 03/28/24 Animal Treatment Investigator Relationship Specialty Start Date End Date Adilson Salazar MD [address] [place] [address] PCP - General Family Medicine 03/28/24 Animal Treatment Investigator Relationship Specialty Start Date End Date Adilson Salazar MD [address] [place] [address] PCP - General Family Medicine 03/28/24 Animal Treatment Investigator Relationship Specialty Start Date End Date Adilson Salazar MD [address] [place] [address] PCP - General Family Medicine 03/28/24 Animal Treatment Investigator Relationship Specialty Start Date End Date Adilson Salazar MD [address] [place] [address] PCP - General Family Medicine 03/28/24 Animal Treatment Investigator Relationship Specialty Start Date End Date Adilson Salazar MD [address] [place] [address] PCP - General Family Medicine 03/28/24 Animal Treatment Investigator Relationship Specialty Start Date End Date Adilson Salazar MD [address] [place] [address] PCP - General Family Medicine 03/28/24 Adilson Salazar MD [address] [place] [address] PCP - [facility] Re[facility] 09/28/24 Animal Treatment Investigator Relationship Specialty Start Date End Date Adilson Salazar MD [address] [place] [address] PCP - General Family Medicine 03/28/24 Adilson Salazar MD [address] [place] [address] PCP - [facility] 09/28/24 Animal Treatment Investigator Relationship Specialty Start Date End Date Adilson Salazar MD [address] [place] [phone] PCP - [facility] Medicine 03/28/24 Adilson Salazar MD [address] [place] [address] PCP - [facility] 09/28/24 Animal Treatment Investigator Relationship Specialty Start Date End Date Adilson Salazar MD [address] [place] [address] PCP - General [facility] 03/28/24 Adilson Salazar MD [address] [place] [address] PCP - [facility] 09/28/24 Animal Treatment Investigator Relationship Specialty Start Date End Date Adilson Salazar MD [address] [place] [address] PCP [facility] Medicine 03/28/24 Adilson Salazar MD [address] [place] [address] PCP - [facility] 09/28/24 Animal Treatment Investigator Relationship Specialty Start Date End Date Adilson Salazar MD [address] [place] [address] PCP - General Family Medicine 03/28/24 Animal Treatment Investigator Relationship Specialty Start Date End Date Adilson Salazar MD [address] [place] [address] PCP - General Family Medicine 03/28/24 [...] BE BASED ON THE PRIMARY CLINICAL RECORDS. [employer] [facility]. provides no warranty or guarantee of the accuracy or completeness of information in this document.
[2025-05-12] MEDS: ASPIRIN 81 MG TAB.CHEW 324 MG PO (07:28)
[2025-05-12] MEDS: NITROGLYCERIN 0.4 MG BOTTLE SL ×2 (07:28→07:59)
[2025-05-12 07:48] LABS: Hematocrit 40.5 % (42.0-54.0); Hemoglobin 13.9 g/dL (14.0-18.0); Immature Granulocytes Abs Auto 0.00 10^3/uL (0.00-0.03); Immature Granulocytes Pct Auto 0.0 % (0.0-0.5); Lymphocytes Absolute Auto 2.0 10^3/uL (1.2-3.8); Mean Corpuscular HGB Conc 34.3 g/dL (29.9-35.2); Mean Corpuscular Hemoglobin 29.0 pg (25.9-34.0); Mean Corpuscular Volume 84.6 fL (80.0-94.0); Platelet Count 159 10^3/uL (150-450); Red Blood Count 4.79 10^6/uL (4.70-6.10); White Blood Count 5.5 10^3/uL (4.0-11.0)
--- NOTE | 2025-05-12 08:02 | PC.NURSE ---
pt c/o chest pain 5/10 at this time, another nitro given
[2025-05-12 08:05] LABS: Anion Gap 12.8; Blood Urea Nitrogen 14.0 mg/dL (7.0-18.0); Calcium 9.3 mg/dL (8.5-10.1); Carbon Dioxide 28.8 mmol/L (21.0-32.0); Chloride 100 mmol/L (98-107); Estimated GFR (African America >60 (>=60 mL/min/1.73m^2); Estimated GFR (Non-African Ame >60 (>=60 mL/min/1.73m^2); Glucose 358 mg/dL (74-106); Potassium 3.6 mmol/L (3.5-5.1); Sodium 138 mmol/L (136-145)
== END 2025-05-12 09:33 | disposition home or self-care (01) ==
PROVIDERS: Emergency Provider Emergency Medicine; PCP Family Medicine
DX: R07.9 Chest pain, unspecified (principal); I25.2 Old myocardial infarction; Z87.891 Personal history of nicotine dependence
CPT/HCPCS: 36415; 71045; 80048; 84484; 85025; 93005; 99285

== ENCOUNTER 2025-05-17 11:50 | Outpatient (OUT) | payer OTHER, MEDICARE, SELFPAY ==
--- OUTSIDE RECORDS SUMMARY | 2025-05-17 11:56 | XMS_ITS | Encounter Summary ---
Author Organization [facility] Address [address], [address] [place] [address] Care Team Providers Care Library Supervisor Name Role Phone Adilsno Luu MD Primary Care Provider + Reason for Visit * Reason Comments Medication Refill Encounter Details Date Type Department Care Team (Late st Contact Info) Description 04/16/2020 Refill [facility] [address], [address] [place] [address] Vipin Reddy MD Medication Refill Social History Tobacco Use Types Packs/Day Years Used Date Smoking Tobacco: Never Smokeless Tobacco: Never Alcohol Use Standard Drinks/Week Comments Never 0 (1 standard drink = 0.6 oz pur e alcohol) AUDIT-C Answer Date Recorded Frequency of Alcohol Consumption Never 06/05/2019 Average Number of Drinks Not on file 019 Frequency of Binge Drinking Not on file 05/22 Sex and Gender Information Value Date Recorded Sex Assigned at Not on file Legal Sex Male 4:14 PM EST Gender Identity Not on file Sexual Orientation Not on file documented as of this encounter Plan of Treatment Not on file documented as of this encounter Visit Diagnoses Not on filedocumented in this encounter Care Teams Library Supervisor Relationship Specialty Start Date End Date Adilson Luu MD PCP - General Family Medicine 06/05/19 documented as of this encounter
--- OUTSIDE RECORDS SUMMARY | 2025-05-17 11:56 | XMS_ITS | Encounter Summary ---
Author Organization [facility] Address [address], [address] [place] [address] Care Team Providers Care Retread Supervisor Name Role Phone Adilson Luu MD Primary Care Provider + Reason for Visit * Reason Comments Medication Refill Encounter Details Date Type Department Care Team (Late st Contact Info) Description 06/11/2020 Refill [place] [id number] [facility] [address], [address] [place] [address] Vipin Reddy MD Medication Refill Social History [...] documented as of this encounter Visit Diagnoses Diagnosis Cerebrovascular accident (CVA) due to embolism of right middle cerebral artery (HCC) Hypercoagulable state Primary hypercoagulable state documented in this encounter Care Teams Retread Supervisor Relationship Specialty Start Date End Date Adilson Luu MD PCP - General Family Medicine 06/05/19 documented as of this encounter
--- OUTSIDE RECORDS SUMMARY | 2025-05-17 11:56 | XMS_ITS | Encounter Summary ---
Author Organization [facility] Address [address] [place] [address] Care Team Providers Care Instructor Kindergarten Name Role Phone Adilson Luu MD Primary Care Provider [phone] Adilson Luu MD Unavailable Eli Elkins MA Unavailable [phone] Encounter Details Date Type Department Care Team (Late st Contact Info) Description 10/01/2024 Orders Only [facility] [address] [address] Buck Romero, DO [address] [place] [address] Social History Tobacco Use Types Packs/Day Years Used Date Smoking Tobacco: Never Smokeless Tobacco: Never Alcohol Use Standard Drinks/Week Comments Not Currently 0 (1 standard drink = 0.6 oz pur e alcohol) Sex and Gender Information Value Date Recorded Sex Assigned at Not on file Legal Sex Male 7:33 PM EDT Gender Identity Not on file Sexual Orientation Not on file documented as of this encounter Plan of Treatment Not on file documented as of this encounter Procedures Procedure Name Priority Date/Time Associated Diagnosis Comments EC ECHOCARDIOGRAM LIMITED 2 D M MODE Routine 10/01/2024 1:20 PM EST RHYTHM ECG, REPORT Routine 10/01/2024 9: [address] ABDOMEN & PELVIS W Routine 09/30/2024 10:[address] HEAD OR BRAIN W/ & W/O CONTRAST Routine 09/30/2024 10:30 AM EST XR CHEST 1 VIEW Routine 09/30/2024 9:35 AM EST documented in this encounter Results * EC ECHOCARDIOGRAM LIMITED 2 D M MODE (10/01/2024 1:20 PM EST) Anatomical Region Laterality Modality Radiographic Shanika ging Brandon Palencia MD IMG XR PROCEDURES Final Result * ECG 3 Lead (10/01/2024 9:10 AM EST) Buck Romero DO IN CLINIC/BEDSIDE ORDERABLES Final Result * CT ABDOMEN & PELVIS W (09/30/2024 10:37 AM EST) Anatomical Region Laterality Modality Radiographic Shanika ging Brandon Palencia MD IMG XR PROCEDURES Final Result * CT HEAD OR BRAIN W/ & W/O CONTRAST (09/30/2024 10:30 AM EST) Anatomical Region Laterality Modality Radiographic Shanika ging Brandon Palencia MD IMG XR PROCEDURES Final Result * XR chest 1 view (09/30/2024 9:35 AM EST) Anatomical Region Laterality Modality Chest Radiographic Shanika ging Devonte Prado MD IMG XR PROCEDURES Final Resul t documented in this encounter Visit Diagnoses Not on filedocumented in this encounter Care Teams Instructor Kindergarten Relationship Specialty Start Date End Date Adilson Luu MD PCP - General Family Medicine 03/28/24 Adilson Luu MD [address] [place] [address] PCP - ACO Reach 09/28/24 01/22/25 Eli Elkins MA [address] [place] [address] Family Medicine 12/18/24 12/27/24 documented as of this encounter
--- OUTSIDE RECORDS SUMMARY | 2025-05-17 11:56 | XMS_ITS | Encounter Summary ---
Author Organization [facility] Address [address] [place] [address] Care Team Providers Care Behavioral Instructor Name Role Phone Adilson Luu MD Primary Care Provider [phone] Adilson Luu MD Unavailable Eli Elkins MA Unavailable [phone] Encounter Details Date Type Department Care Team (Late st Contact Info) Description 05/09/2024 Orders Only [facility] [address] [place] [address] Tracey Kamara MD [address] [place], [place] [phone] Social History Tobacco Use Types Packs/Day Years [...] Procedure Name Priority Date/Time Associated Diagnosis Comments CT ANGIO CHEST W CONT(INCL WO) Routine 05/09/2024 1:17 PM EDT XR CHEST 1 VIEW Routine 05/09/2024 12:24 PM EDT documented in this encounter Results * CT ANGIO CHEST W CONT(INCL WO) (05/09/2024 1:17 PM EDT) Anatomical Region Laterality Modality Radiographic Shanika ging us Tracey Kamara MD IMG XR PROCEDURES Final Result * XR chest 1 view (05/09/2024 12:24 PM EDT) Anatomical Region Laterality Modality Chest Radiographic Shanika ging us Tracey Kamara MD IMG XR PROCEDURES Final Result documented in this encounter Visit Diagnoses Not on filedocumented in this encounter Care Teams Behavioral Instructor Relationship Specialty Start Date End Date Adilson Luu MD PCP - General Family Medicine 03/28/24 Adilson Luu MD [address] [place] [address] PCP - ACO Reach 09/28/24 01/22/25 Eli Elkins, RUPERTO [address] [place] [address] Family Medicine 12/18/24 12/27/24 documented as of this encounter
--- OUTSIDE RECORDS SUMMARY | 2025-05-17 11:56 | XMS_ITS | Clinical Summary ---
Author Organization [facility] Address [id number] [place] [address] Care Team Providers Care Nurse Midwife Name Role Phone Adilson Luu MD Primary Care Provider [phone] Allergies Active Allergy Reactions Criticality Noted Date Comments Penicillins Hives 03/08/2017 Medications valACYclovir (VALTREX) 500 mg tablet 0 7 Active aspirin 81 mg Take 81 mg by mouth daily. Active clotrimazole-be tamethasone (LOTRISONE) cream Apply 1 application topically 2 (two) times a day. 45 g 1 7 Active pen needle, diabetic (PEN NEEDLE) 32 gauge x /32 needleIndicatio ns:Type 2 diabetes mellitus with diabetic neuropathy, with long-term current use of insulin ([facility]) Inject med subq once daily E11.40 100 each 1 7 Active blood sugar diagnostic (glucose blood) stripIndication s:Type 2 diabetes mellitus with diabetic neuropathy, with long-term current use of insulin ([facility]) Check bs once E11.40daily 100 strip 1 7 Active insulin aspart (NovoLOG Flexpen) 100 unit/mL insulin penIndications: Type 2 diabetes mellitus with diabetic neuropathy, with long-term current use of insulin ([facility]) Inject 35 Units under the skin 2 (two) times a day before meals for 180 days. 8 pen 5 7 Active insulin lispro (HUMALOG KWIKPEN INSULIN SUBQ) Inject under the skin. Active atorvastatin (LIPITOR) 10 mg tablet Take 10 mg by mouth daily. Active Active Problems Problem Noted Date Diagnosed Date Hyperlipidemia 02/01/2017 Hypertension 02/01/2017 Family History Medical History Relation Name Comments Diabetes Mother Heart disease Mother Hypertension Mother Relation Name Status Comments Mother Social History Tobacco Use Types Packs/Day Years Used Date Smoking Tobacco: Former Smokeless Tobacco: Never Alcohol Use Standard Drinks/Week Comments No 0 (1 standard drink = 0.6 oz pur e alcohol) Childcare Answer Date Recorded Childcare Unknown 01/31/2019 Employment Answer Date Recorded Employment Unknown 01/31/2019 Purpose - Life Answer Date Recorded Purpose and direction in life Unknown Sex and Gender Information Value Date Recorded Sex Assigned at Not on file Legal Sex Male 11:25 AM EDT Gender Identity Not on file Sexual Orientation Not on file Last Filed Vital Signs Vital Sign Reading Time Taken Comments Blood Pressure 156/88 02/03/2021 1:51 PM EDT Pulse 74 02/03/2021 1:51 PM EDT Temperature 36.2 C (97.1 F) 02/03/2021 12:16 PM EDT Respiratory Rate 13 02/03/2021 1:51 PM EDT Oxygen Saturation 97% 02/03/2021 1:51 PM EDT Inhaled Oxygen Concentration - - Weight 103.4 kg (228 lb) 02/03/2021 12:16 PM EDT Height 185.4 cm (6' 1 ) 02/03/2021 12:16 PM EDT Body Mass Index 30.08 02/03/2021 12:16 PM EDT Plan of Treatment Health Maintenance Due Date Last Done Comments Depression Screening 1967 Tobacco Screening 1967 Adult BMI Screening 11/08/1973 DTaP,Tdap and Td Vaccines (1 - Tdap) 11/08/1974 Zoster (Shingles) Vaccine (1 of 2) 11/08/2005 Fall Risk Screening 11/08/2020 Colonoscopy 03/11/2024 03/11/2014 Influenza Vaccine 04/22/2025 Medical Devices Implanted Type Area Chorus Dancer Device Identifier Shelf Expiration Date Model / Serial / Lot Lens Iol Ultrasert 19.5d - [id number] - [id number] Implanted:Qty: 1 on 02/03/2021 by Kasey Tanner MD at [facility] Lens Right: Eye [employer] 08/14/2023 [id number] 19.5 / [id number] / NA Procedures Procedure Name Priority Date/Time Associated Diagnosis Comments COLONOSCOPY Routine 03/11/2014 from Last 3 Months or Most Recently Relevant to Health Maintenance Results * COLONOSCOPY (03/11/2014) Colonoscopy COLONOSCOPY [facility] EXTERNAL NON-INTERFACE D REF LAB 03/11/2014 us Scanning Provider External HEALTH MAINTENANCE Ed ited Result - Final [facility] EXTERNAL NON-INTERFACED REF LAB [address] [place] [address] from Last 3 Months or Most Recently Relevant to Health Maintenance Insurance MEDICARE [facility] Care Teams Nurse Midwife Relationship Specialty Start Date End Date Adilson Luu MD PCP - General 06/19/17
--- OUTSIDE RECORDS SUMMARY | 2025-05-17 11:56 | XMS_ITS | Encounter Summary ---
Author Organization [facility] Address [address] [place] [address] Care Team Providers Care Powerhouse Mechanic Name Role Phone Adilson Luu MD Primary Care Provider [phone] Adilson Luu MD Primary Care Provider [phone] Adilson Luu MD Unavailable Eli Elkins MA Unavailable [phone] Encounter Details Date Type Department Care Team (Late st Contact Info) Description 03/20/2024 Orders Only [facility] [address] [place] [address] Adilson Luu MD [address] [address] Social History Tobacco Use Types Packs/Day Years [...] Procedure Name Priority Date/Time Associated Diagnosis Comments ELECTROCARDIOGRAM REPORT Routine 024 2:51 PM EDT documented in this encounter Results * Electrocardiogram Report (03/12/2024 2:51 PM EDT) us Adilson Luu MD IN CLINIC/BEDSIDE ORDERABLES Fin al Result documented in this encounter Visit Diagnoses Not on filedocumented in this encounter Care Teams Powerhouse Mechanic Relationship Specialty Start Date End Date Adilson Luu MD PCP - General Family Medicine 05/25/23 03/27/24 Adilson Luu MD PCP - General Family Medicine 03/28/24 Adilson Luu MD [address] [place] [address] PCP - ACO Reach 09/28/24 01/22/25 Eli Elkins, RUPERTO [address] [place] [address] Family Medicine 12/18/24 12/27/24 documented as of this encounter
--- OUTSIDE RECORDS SUMMARY | 2025-05-17 11:56 | XMS_ITS | Clinical Summary ---
Author Organization [facility] Address [address], [address] [place] [address] Care Team Providers Care Pharmacy Delivery Driver Name Role Phone Adilson Luu MD Primary Care Provider + Allergies Active Allergy Reactions Criticality Noted Date Comments Labetalol 10/15/2019 Penicillins Hives,Other (See Comments) High 08/09/20 14 Medications lisinopril-hydr ochlorothiazide (PRINZIDE;ZESTO RETIC) 20-12.5 MG per tablet Take 1 tablet by mouth 2 times daily Active aspirin 81 MG chewable tablet Take 81 mg by mouth daily Active Lansoprazole (PREVACID 24HR PO) Take 40 mg by mouth daily Active glipiZIDE (GLUCOTROL) 10 MG tablet Take 10 mg by mouth 2 times daily (before meals) Active buPROPion (WELLBUTRIN XL) 150 MG extended release tablet Take 150 mg by mouth every morning Active pioglitazone (ACTOS) 30 MG tablet Take 30 mg by mouth daily Active metFORMIN (GLUCOPHAGE-XR) 500 MG extended release tablet Take 500 mg by mouth 2 times daily Active montelukast (SINGULAIR) 10 MG tablet Take 10 mg by mouth nightly Active atorvastatin (LIPITOR) 80 MG tablet Take 1 tablet by mouth nightly 30 tablet 3 9 Active folic acid (FOLVITE) 1 MG tablet Take 1 tablet by mouth 2 times daily 30 tablet 3 9 Active tamsulosin (FLOMAX) 0.4 MG capsule Take 1 capsule by mouth daily 30 capsule 3 9 Active metoprolol tartrate (LOPRESSOR) 25 MG tablet Take 0.5 tablets by mouth 2 times daily 60 tablet 3 9 Active pravastatin (PRAVACHOL) 40 MG tablet Take 40 mg by mouth daily Active XARELTO 20 MG TABS tabletIndicatio ns:Cerebrovascu lar accident (CVA) due to embolism of right middle cerebral artery (HCC),Hypercoag ulable state Take 1 tablet by mouth once daily with breakfast 30 tablet 0 Active amLODIPine (NORVASC) 10 MG tablet Take 1 tablet by mouth daily 0 Active Active Problems Problem Noted Date Diagnosed Date Cerebrovascular accident (CVA) 06/05/2019 Acute left hemiparesis History of ischemic left MCA stroke History of diabetes mellitus History of hypertension History of DVT (deep vein thrombosis) Social History Tobacco Use Types Packs/Day Years [...] Sign Reading Time Taken Comments Blood Pressure 168/81 08/04/2020 2:06 PM EST Pulse 84 08/04/2020 2:06 PM EST Temperature 35.6 C (96 F) 08/04/2020 1:41 PM EST Respiratory Rate 20 06/09/2019 11:39 AM EDT Oxygen Saturation 96% 08/04/2020 1:41 PM EST Inhaled Oxygen Concentration - - Weight 98.9 kg (218 lb) 08/04/2020 1:41 PM EST Height 182.9 cm (6') 08/04/2020 1:41 PM EST Body Mass Index 29.57 08/04/2020 1:41 PM EST Plan of Treatment Not on file Insurance MEDICARE [employer] Advance Directives * Full Code (Latest Code Status on File) Date Activated Date Inactivated Comments 06/07/2019 5:05 PM 06/09/2019 5:20 PM * Full Code Date Activated Date Inactivated Comments 06/07/2019 1:53 PM 06/07/2019 5:04 PM * Full Code Date Activated Date Inactivated Comments 06/06/2019 1:17 AM 06/07/2019 1:53 PM Care Teams Pharmacy Delivery Driver Relationship Specialty Start Date End Date Adilson Luu MD PCP - General Family Medicine 06/05/19
--- OUTSIDE RECORDS SUMMARY | 2025-05-17 11:56 | XMS_ITS | Encounter Summary ---
Author Organization [facility] Address [id number] [address] [place] [address] Care Team Providers Care Property Management Specialist Name Role Phone Adilson Luu MD Primary Care Provider [phone] Reason for Visit * Reason Comments Med Refill Encounter Details Date Type Department Care Team (Late st Contact Info) Description 06/17/2017 Refill [facility] [address] [place] [address] [place] [id number] Jerzy Casey, DO [address] [facility] [address] Social History Tobacco Use Types Packs/Day Years [...] Diagnoses Not on filedocumented in this encounter Additional Health Concerns Assessment Noted Time PHQ-9 Depression Total Score: 0 02/02/20 17 10:00 AM EDT documented as of this encounter Care Teams Property Management Specialist Relationship Specialty Start Date End Date Adilson Luu MD PCP - General 06/19/17 documented as of this encounter
--- OUTSIDE RECORDS SUMMARY | 2025-05-17 11:56 | XMS_ITS | Clinical Summary ---
Author Organization [facility] Address [address] [place] [address] Care Team Providers Care Security Systems Technician Name Role Phone Adilson Luu MD Primary Care Provider [phone] Allergies Active Allergy Reactions Criticality Noted Date Comments Penicillins 05/25/2023 Medications lisinopril-hydro CHLOROthiazide 20-12.5 MG tablet Take 1 tablet by mouth in the morning. Active triamcinolone (Kenalog) 0.5 % cream Apply 1 application topically in the morning and 1 application in the evening and 1 application before bedtime. Active ipratropium-albu terol (Duo-Neb) 0.5-2.5 mg/3 mL nebulizer solution Take 3 mL by nebulization every 6 (six) hours. Active cholecalciferol (GNP Vitamin D Maximum Strength) 50 MCG (2000 UT) tablet Take by mouth. Active acetaminophen (Tylenol) 500 MG tablet Take 1,000 mg by mouth every 6 (six) hours if needed for mild pain. Active aspirin 81 MG EC tablet Take 81 mg by mouth in the morning. Active rosuvastatin (Crestor) 40 MG tablet Take 40 mg by mouth in the morning. 3 Active relugolix (Orgovyx) 120 MG tablet Take by mouth Daily. Active Calcium + Vitamin D3 600-10 MG-MCG tablet Take 1 tablet by mouth in the morning. 4 Active Glucose Blood (Blood Glucose Test) stripIndications :Type 2 diabetes mellitus with hyperglycemia, with long-term current use of insulin (HCC) 1 each by In Vitro route in the morning and 1 each in the evening and 1 each before bedtime. 100 strip 11 4 Active Lancets Thin miscIndications: Type 2 diabetes mellitus with hyperglycemia, with long-term current use of insulin (HCC) 1 each in the morning and 1 each in the evening and 1 each before bedtime. 100 each 11 4 Active Blood Glucose Monitoring Suppl (IDRI ([facility]) Verio Flex System) w/Device kitIndications:T ype 2 diabetes mellitus with hyperglycemia, with long-term current use of insulin (HCC) USE TO CHECK GLUCOSE THREE TIMES DAILY (IN THE MORNING, IN THE EVENING, AND BEFORE BEDTIME) 1 kit 4 Active amLODIPine (Norvasc) 10 MG tabletIndication s:Essential hypertension, benign Take 1 tablet by mouth once daily 30 tablet 4 Active Eliquis 5 MG tablet Take 5 mg by mouth in the morning and 5 mg before bedtime. 4 Active carvedilol (Coreg) 6.25 MG tablet Take 6.25 mg by mouth in the morning and 6.25 mg before bedtime. 4 Active isosorbide mononitrate ER (Imdur) 30 MG 24 hr tablet Take 30 mg by mouth Daily Active montelukast (Singulair) 10 MG tabletIndication s:Bilateral impacted cerumen TAKE 1 TABLET BY MOUTH AT BEDTIME 30 tablet 5 Active pantoprazole (ProtoNix) 40 MG EC tablet Take 40 mg by mouth in the morning. Take before meals. Do not crush, chew, or split.. 5 Active magnesium oxide (Mag-Ox) 400 mg tablet Take 400 mg by mouth in the morning and 400 mg before bedtime. 5 Active metFORMIN XR (Glucophage-XR) 500 MG 24 hr tabletIndication s:Type 2 diabetes mellitus with hyperglycemia, with long-term current use of insulin ([facility]) Take 1 tablet by mouth twice daily 60 tablet 5 Active tamsulosin (Flomax) 0.4 MG 24 hr capsuleIndicatio ns:BPH associated with nocturia Take 1 capsule by mouth once daily 90 capsule 5 Active glipiZIDE (Glucotrol) 10 MG tabletIndication s:Type 2 diabetes mellitus with hyperglycemia, unspecified whether [facility] insulin use (HCC) Take 1 tablet by mouth twice daily 180 tablet 5 Active semaglutide (Ozempic, 0.25 or 0.5 MG/DOSE,) 2 MG/1.5ML solution pen-injectorIndi cations:Type 2 diabetes mellitus with hyperglycemia, with long-term current use of insulin ([facility]) 0.25 mg SC weekly x 4 weeks, then 0.5 mg weekly 1 each 5 5 Active insulin glargine (Lantus SoloStar) 100 UNIT/ML penIndications:T ype 2 diabetes mellitus with hyperglycemia, with long-term current use of insulin ([facility]) Inject 40 Units under the skin at bedtime 3 mL 5 5 Active budesonide (Pulmicort Flexhaler) 180 MCG/ACT inhalerIndicatio ns:Mild persistent asthma without complication ([facility]) Inhale 1 puff in the morning and 1 puff before bedtime. Rinse mouth with water after use to reduce aftertaste and incidence of candidiasis. Do not swallow. 1 each 3 5 Active Active Problems Problem Noted Date Diagnosed Date Mild persistent asthma without complication 03/22 Assessment & Plan (04/09/2025 10:31 AM EDT): Frequent cough and mild SOB. Resume inhaled steroid. Diverticulitis 10/16/2024 Assessment & Plan (10/16/2024 3:24 PM EST): Recent infection but improved. Stick to high fiber diet. Single subsegmental pulmonar y embolism without acute cor pulmonale 05/18/2024 Assessment & Plan (05/18/2024 10:36 AM EDT): Recent PE and continue Eliquis. Prior DVT years ago and need life long anticoagulation. 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 Assessment & Plan (01/16/2025 2:04 PM EDT): Edema stable and continue medication. Assessment & Plan (10/16/2024 3:25 PM EST): Edema stable and continue medication. Assessment & Plan (07/02/2024 2:58 PM EST): Edema stable and continue medication. Assessment & Plan (05/02/2024 2:23 PM EDT): Worsening edema and start lasix. Add ozempic. Stop actos as possibly causing edema. If no improvement will need to add aldactone. Coronary artery disease invo lving pilot station coronary artery of pilot station heart without angina pectoris 03/28/2024 Assessment & Plan (04/09/2025 10:31 AM EDT): Continue medication and follow with cardiology. Assessment & Plan (01/16/2025 2:04 PM EDT): Continue medication and follow with cardiology. Assessment & Plan (07/02/2024 2:58 PM EST): Continue medication and follow with cardiology. Assessment & Plan (05/18/2024 10:35 AM EDT): Continue medication and follow with cardiology. Assessment & Plan (05/02/2024 2:23 PM EDT): Add ozempic and follow with cardiology. Assessment & Plan (03/28/2024 3:01 PM EDT): Recent cath showed blockage and treat medically. No further pain. Continue medication as prescribed. Essential hypertension, benign 08/05/2023 Assessment & Plan (04/09/2025 10:31 AM EDT): BP elevated but controlled at home and monitor PRN. Assessment & Plan (01/16/2025 2:04 PM EDT): BP elevated but controlled at home and monitor PRN. Assessment & Plan (10/16/2024 3:24 PM EST): BP elevated but controlled at home and monitor PRN. Assessment & Plan (07/02/2024 2:58 PM EST): BP elevated but previously controlled and monitor PRN. Assessment & Plan (05/02/2024 2:23 PM EDT): BP elevated but previously controlled and monitor PRN. Assessment & Plan (03/28/2024 3:01 PM EDT): BP controlled and monitor PRN. Assessment & Plan (12/29/2023 12:29 PM EDT): BP controlled and monitor PRN. Assessment & Plan (09/26/2023 12:12 PM EST): BP controlled and monitor PRN. Assessment & Plan (08/05/2023 12:10 PM EST): BP controlled with medication and normal. BPH associated with nocturia 08/05/2023 Cerebrovascular disease, unspecified 08/05/2023 Dyshidrotic eczema 08/05/2023 Gastroesophageal reflux disease 08/05/2023 Assessment & Plan (12/29/2023 12:30 PM EDT): Increased symptoms and likely GERD. Avoid triggers. Try OTC and if worse can send in prescription PPI. Personal history of DVT (deep vein thrombosis) 1 10/06/2022 Lateral rectus muscle paralysis, right Multi-infarct dementia, uncomplicated 08/05/2023 Assessment & Plan (10/16/2024 3:25 PM EST): Monitor. Obstructive sleep apnea (adult) (pediatric) 07/22 Prostatic cancer 08/05/2023 Assessment & Plan (10/16/2024 3:25 PM EST): Follow with urology. Assessment & Plan (12/29/2023 12:31 PM EDT): Follow with urology. Assessment & Plan (09/26/2023 12:15 PM EST): Follow up with specialists. Type 2 diabetes mellitus with hyperglycemia 07/22 Assessment & Plan (04/09/2025 10:33 AM EDT): Reports BS elevated and due for A1C. Resume ozempic. Stick to ADA diet and limit carbs. Assessment & Plan (01/16/2025 2:04 PM EDT): Not checking BS and last A1C. Resume ozempic. Stick to ADA diet and limit carbs. Assessment & Plan (10/16/2024 3:24 PM EST): Not checking BS and due for A1C. Stick to ADA diet and limit carbs. Assessment & Plan (07/02/2024 2:59 PM EST): Reports BS elevated and due for A1C. Stick to ADA diet and limit carbs. Assessment & Plan (05/18/2024 10:37 AM EDT): Not remember BS results and continue medication. Assessment & Plan (05/02/2024 2:24 PM EDT): BS stable and add ozempic. Assessment & Plan (03/28/2024 3:02 PM EDT): A1C elevated at 8.0. Check BS TID. Stick to ADA diet and limit carbs. Assessment & Plan (12/29/2023 12:30 PM EDT): Reports BS improved and due for A1C. Check BS TID. Stick to ADA diet and limit carbs. Assessment & Plan (09/26/2023 12:13 PM EST): Not checking BS and due for A1C. Script for new meter and supplies sent to pharmacy. Check BS TID. Stick to ADA diet and limit carbs. Assessment & Plan (08/05/2023 12:09 PM EST): BS elevated and last A1C over 12. admits patient only taking insulin once a day because she isn't home. Stop 75/25 and will change to once a day long acting insulin. Will send abraham to pharmacy. Stick to ADA diet and limit carbs. Vitamin D deficiency 08/05/2023 Resolved Problems Problem Noted Date Diagnosed Date Resolved Date Acute non-recurrent pansinusitis 01/16/2025 04/09/2025 Assessment & Plan (01/16/2025 2:03 PM EDT): Take antibiotics for 7 days. Use prednisone [...] if no better or worse call for re- evaluation. Pneumonia of right lower lob e due to infectious organism 05/18/2024 07/02/2024 Assessment & Plan (05/18/2024 10:36 AM EDT): Recent pneumonia and complete levaquin. NSTEMI (non-ST elevated myoc ardial infarction) 05/18/2024 07/02/2024 Assessment & Plan (05/18/2024 10:36 AM EDT): Recent admission and cath in February. Continue medication and follow with cardiology. Bilateral impacted cerumen 05/02/2024 0 05/18/2024 Assessment & Plan (05/02/2024 1:40 PM EDT): Ears plugged and bilateral impaction on exam. Ears irrigated with water and cerumen removed with speculum. Canals clear after procedure. Use debrox or drops of baby oil to prevent build up of wax in future. Do not use q-tips inside ear. Major depressive disorder, r ecurrent episode, moderate 08/05/2023 03/28/2024 Encounters Date Type Department Care Team Description 04/09/2025 10:00 AM EDT Office Visit [facility] [address] [place] [phone] Adilson Luu MD Type 2 diabetes mellitus with hyperglycemia, with long-term current use of insulin (HCC) (Primary Dx); Essential hypertension, benign ; Mild persistent asthma without complication (HCC); Heart failure with improved ejection fraction (HFimpEF) ([facility]); Coronary artery disease involving pilot station coronary artery of pilot station heart without angina pectoris 04/09/2025 Bamboo flowsheet [facility] [address] [place] [id number] Adilson Luu MD from Last 3 Months Immunizations Immunization Administration Dates Next Due Pneumococcal Polysaccharide PPSV23 03/20/2013 Family History Medical History Relation Name Comments Coronary artery disease Father Hypertension Father Coronary artery disease Mother Diabetes Mother Relation Name Status Comments Father Mother Social History Tobacco Use Types Packs/Day Years Used Date Smoking Tobacco: Never Smokeless Tobacco: Never Tobacco Cessation:Counseling Given: Not Answered Alcohol Use Standard Drinks/Week Comments Not Currently 0 (1 standard drink = 0.6 oz pur e alcohol) Sex and Gender Information Value Date Recorded Sex Assigned at Not on file Legal Sex Male 7:33 PM EDT Gender Identity Not on file Sexual Orientation Not on file Last Filed Vital Signs Vital Sign Reading Time Taken Comments Blood Pressure 158/82 04/09/2025 10:09 AM EDT Pulse 84 04/09/2025 10:09 AM EDT Temperature 35.7 C (96.2 F) 04/09/2025 10:09 AM EDT Respiratory Rate 20 04/09/2025 10:09 AM EDT Oxygen Saturation 98% 04/09/2025 10:09 AM EDT Inhaled Oxygen Concentration - - Weight 103 kg (226 lb) 04/09/2025 10:09 AM EDT Height 182.9 cm (6') 04/09/2025 10:09 AM EDT Body Mass Index 30.65 04/09/2025 10:09 AM EDT Plan of Treatment Health Maintenance Due Date Last Done Comments CT Colonography 1955 FIT-DNA 1955 FIT 1955 FOBT 1955 Medicare Annual Wellness (AWV) 1955 Sigmoidoscopy 1955 Diabetes: Retinopathy Screening 11/08/1965 Pneumococcal Vaccine: 65+ Ye ars (2 of 2 - PCV) 03/20/2014 03/20/2013 Influenza Vaccine (#1) 2025 Diabetes: Hemoglobin A1C 05/12/2025 025, 03/14/2024, 03/14/2024, Additional history exists Diabetes: Urine Protein Screening 11/12/2025 025, 06/17/2023 Colonoscopy 07/21/2032 07/21/2022 Colorectal Cancer Screening 07/21/2032 Insurance MEDICARE [employer] Care Teams Security Systems Technician Relationship Specialty Start Date End Date Adilson Luu MD PCP - General Family Medicine 03/28/24
--- OUTSIDE RECORDS SUMMARY | 2025-05-17 11:56 | XMS_ITS | Encounter Summary ---
Author Organization [facility] Address [address] [place] [address] Care Team Providers Care Telephony Engineer Name Role Phone Adilson Luu MD Primary Care Provider [phone] Adilson Luu MD Unavailable Eli Elkins MA Unavailable [phone] Encounter Details Date Type Department Care Team (Late st Contact Info) Description 05/10/2024 Orders Only [facility] [address] [place] [address] Ludmila Wall MD [address] [place] [address] Social History Tobacco Use Types Packs/Day Years [...] Procedure Name Priority Date/Time Associated Diagnosis Comments US VENOUS LE Routine 05/09/2024 9:43 AM EDT documented in this encounter Results * US VENOUS LE (05/09/2024 9:43 AM EDT) Anatomical Region Laterality Modality Radiographic Shanika ging Ludmila Wall MD IMG XR PROCEDURES Final Result documented in this encounter Visit Diagnoses Not on filedocumented in this encounter Care Teams Telephony Engineer Relationship Specialty Start Date End Date Adilson Luu MD PCP - General Family Medicine 03/28/24 Adilson Luu MD [address] [place] [address] PCP - ACO Reach 09/28/24 01/22/25 Eli Elkins, RUPERTO [address] [place] [address] Family Medicine 12/18/24 12/27/24 documented as of this encounter
--- OUTSIDE RECORDS SUMMARY | 2025-05-17 11:56 | XMS_ITS | Clinical Summary ---
Author Organization [facility] Address [address] [place] [address] Phone Care Team Providers Care Customer Experience Retail Clerk Name Role Phone Unavailable Primary Care Provider Unavailabl e Social History Tobacco Use Types Packs/Day Years Used Date Smoking Tobacco: Never Assessed Sex and Gender Information Value Date Recorded Sex Assigned at Not on file Legal Sex Male 2:37 PM EST Gender Identity Not on file Sexual Orientation Not on file Plan of Treatment Not on file
--- OUTSIDE RECORDS SUMMARY | 2025-05-17 11:56 | XMS_ITS | Encounter Summary ---
Author Organization [facility] Address [address] [place] [address] Care Team Providers Care Keyboard Instrument Repairer Name Role Phone Adilson Luu MD Primary Care Provider [phone] Adilson Luu MD Unavailable Eli Elkins MA Unavailable [phone] Encounter Details Date Type Department Care Team (Late st Contact Info) Description 2024 Orders Only [facility] [address] [place] [phone] Adilson Luu MD [address] [place] [phone] Social History Tobacco Use Types Packs/Day Years [...] on filedocumented in this encounter Care Teams Keyboard Instrument Repairer Relationship Specialty Start Date End Date Adilson Luu MD PCP - General Family Medicine 03/28/24 Adilson Luu MD [address] [place] [address] PCP - ACO Reach 09/28/24 01/22/25 Eli Elkins, RUPERTO [address] [place] [address] Family Medicine 12/18/24 12/27/24 documented as of this encounter
--- OUTSIDE RECORDS SUMMARY | 2025-05-17 11:56 | XMS_ITS | Encounter Summary ---
Author Organization [facility] Address [address] [place] [address] Care Team Providers Care Sugar Chipper Machine Operator Name Role Phone Adilson Luu MD Primary Care Provider [phone] Adilson Luu MD Unavailable Eli Elkins MA Unavailable [phone] Encounter Details Date Type Department Care Team (Late st Contact Info) Description 05/04/2024 Abstract [facility] [address] [place] [address] Adilson Luu MD [address] [place] [address] Social History Tobacco Use Types Packs/Day Years [...] on filedocumented in this encounter Care Teams Sugar Chipper Machine Operator Relationship Specialty Start Date End Date Adilson Luu MD PCP - General Family Medicine 03/28/24 Adilsno Luu MD [address] [place] [address] PCP - ACO Reach 09/28/24 01/22/25 Eli Elkins MA [address] [place] [address] Family Medicine 12/18/24 12/27/24 documented as of this encounter
--- OUTSIDE RECORDS SUMMARY | 2025-05-17 12:00 | XMS_ITS | CCD ---
Author Organization [facility] Care Team Providers Care Marketing Recruiter Name Role Phone Adilson Salazar Primary Care Provider OSCAR HARP Admitting Unavailable KABOUR, AMEER Consulting Unavailable OMER ZAMBRANO Attending Unavailable ADILSON SALAZAR Primary Care Unavailabl JAMILA Bliss Consulting Unavailable ADILSON SALAZAR Primary Care Physician [phone] MD Adilson Salazar Primary Care Provider MD Milvia Palomo Attending Provider [phone] MD Adilson Salazar Primary Care Provider [phone] MD Milvia Palomo Attending Provider MARIE, DR [...] DR ADILSON Johnson Primary Care Unavailable LUMILVIA Rahman Consulting Unavailable NADERER, DR ADILSON Johnson Primary [...] value) [facility] (14 sources) Penicillin; Translations: [penicillin] Drug Allergy 7 Unknown [facility] (20 sources) Penicillins; Translations: [Penicillins] Allergy to substance 4 Rash [facility] (1 source) Labetalol Drug Allergy [facility] (1 source) Labetalol Drug Allergy 1 [facility] Repository Medications Current Medications Medication [...] Active Start: 08-12-2020 take 1 tablet by marinane th once daily amLODIPine 10 mg Tab [...] with long-term current use of insulin ([facility]) USE TO CHECK GLUCOSE THREE TIMES DAILY (IN THE MORNING, IN THE EVENING, AND BEFORE BEDTIME) 1 kit 10/26/2023 Active Start: 10-26-2023 Blood Glucose Monitoring Suppl (OneTouch Verio Flex System) w/Device kit Indications: Type 2 diabetes mellitus with hyperglycemia, with long-term current use of insulin ([facility]/HCC) USE TO CHECK GLUCOSE THREE TIMES DAILY [...] Active Start: 04-09-2025 take 1 puff(s) by [facility] in the morning budesonide (Pulmicort Flexhaler) 180 [...] failure with improved ejection fraction (HFimpEF) ([facility]) Take 1 tablet (40 mg) by mouth Daily 30 tablet 3 05/02/2024 04/09/2025 Discontinued glipiZIDE 10 mg oral tablet (20 sources) Sulfonylurea Start: 12-28-2024 take 1 tablet by mouth twice daily glipiZIDE (Glucotrol) 10 MG tablet Indications: Type 2 diabetes mellitus with hyperglycemia, unspecified whether nursing home insulin use ([facility]) Take 1 tablet by mouth twice daily 180 tablet 12/28/2024 Active Start: 09-25-2024 take 1 tablet by marianne th twice daily glipiZIDE (Glucotrol) 10 MG tablet Indications: Type 2 diabetes mellitus with hyperglycemia, unspecified whether superintendent terminal insulin use ([facility]) Take 1 tablet by mouth twice daily 180 tablet 09/25/2024 Active Start: 06-21-2024 take 1 tablet by marianne th twice daily glipiZIDE (Glucotrol) 10 MG tablet Indications: Type 2 diabetes mellitus with hyperglycemia, unspecified whether nursing home insulin use ([facility]) Take 1 tablet by mouth twice daily [...] # 30 tab(s), Refills(s) 6, Pharmacy: [id number], 183, cm, 04/21/22 11:40:00 [...] with long-term current use of insulin ([facility]) 0.25 mg SC weekly x 4 weeks, [...] Active Start: 06-11-2022 take 1 capsule by [facility] once daily tamsulosin 0.4 mg Cap 0.4 mg = 1 cap(s), Oral, Daily, Refills(s) 0, Bladder problems Start Date: 06/11/22 Status: Ordered Start: 06-09-2019 take 1 capsule by [facility] once daily tamsulosin (FLOMAX) 0.4 MG capsule [...] with long-term current use of insulin ([facility]) Take 1 tablet by mouth once daily [...] Coronary arteriosclerosis; Translations: [Atherosclerotic heart disease of [place] coronary artery without angina pectoris] Onset: 03-28-2024 [...] 06-11-2022 Chronic Other aftercare (1 source) Other superintendent terminal (current) drug therapy; Translations: [OTH SNF CURRENT DRUG THERAPY] Onset: 11-18-2022 Episodic Other aftercare (1 source) [facility] (current) use of insulin; Translations: [SNF CURRENT USE OF INSULIN] Onset: 11-18-2022 Episodic Other aftercare (1 source) 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; Translations: [SNF USE ORAL HYPOGLYCEMIC DX] Onset: 11-18-2022 Episodic Other aftercare (1 source) [facility] (current) use of aspirin; 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: [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] Onset: 11-18-2022 Episodic [...] Interpretation Reference Range Facility Follow-Upon 04-08-2025 Follow-Up [id number] Eunice Marte 1955 Provider Department Center 04/08/2025 PHYLLIS DANGELO [facility] ONC DCC Family History Problem Relation Age of Onset Heart disease Mother 58 Heart disease Maternal Grandmother Comments: heart trouble Heart disease Maternal Grandfather Comments: heart trouble Family Status - Relation Status Age at Mother Father Mother's Sister Mother's Brother Father's Sister Father's Brother Maternal Grandmother Maternal Grandfather Paternal Grandmother Paternal Grandfather Other Level of Service:78921 [place] OFFICE/OUTPATIENT ESTABLISHED SF MDM 10 MIN Reason for Visit and Comments: Follow-up [510708] - psa and testosterone prior Normal [facility] Orders Onlyon 04-08-2025 Orders Only [id number] Eunice Marte 1955 Provider Department Center 04/08/2025 DANIKA PEARL [facility] DCC Family History Problem Relation Age of Onset Heart disease Mother 58 Heart disease Maternal Grandmother Comments: heart trouble Heart disease Maternal Grandfather Comments: heart trouble Family Status - Relation Status Age at Mother Father Mother's Sister Mother's Brother Father's Sister Father's Brother Maternal Grandmother Maternal Grandfather Paternal Grandmother Paternal Grandfather Other Normal [facility] Office Visiton 03-25-2025 Follow-up visit [id number] Eunice Marte 1955 M Date Provider Department [...] Paternal Grandmother Paternal Grandfather Other Level of Service:64808 [place] OFFICE/OUTPATIENT ESTABLISHED MOD MDM 30 MIN Normal [facility] Labon 03-04-2025 Lab [id number] Eunice Marte 1955 M Date Provider Department Center 03/04/2025 [id number] LAB RESOURCE DCC DRAW [facility] Family History Problem Relation Age of Onset Heart disease Mother 58 Heart disease Maternal Grandmother Comments: heart trouble Heart disease Maternal Grandfather Comments: heart trouble Family Status - Relation Status Age at Mother Father Mother's Sister Mother's Brother Father's Sister Father's Brother Maternal Grandmother Maternal Grandfather Paternal Grandmother Paternal Grandfather Other Normal [facility] PSA, DIAGNOSTICon 03-04-2025 PROSTATE SPECIFIC AG (NG/ML) IN SER/PLAS <0.1 Low 0.4-4 [facility] Comment on above: Order Comment: Demetrio garcia in 01/2025 The method used for this test is [employer] DxI chemiluminescent immunoassay. Values obtained by different manufacturers or assay methods should not be compared. Performed By: #### L [id number] #### [facility] (BEYONIS) [address] [place] [address] TESTOSTERONEon 03-04-2025 TESTOSTERONE (NG/DL) IN SER/PLAS 31 ng/dL Low 193-740 [facility] Comment on above: Order Comment: Pleas e collect in 01/2025 Result Comment: Test Performed by [employer] [address] [place] [address] [id number] - Released 03/05/2025 00:37 Performed By: #### L [id number] ####[facility] [id number] [place] [address] [facility] MICROALB CREAT RATIO RAN DOMon 11-12-2024 CREATININE URINE RANDOM 78.82 mg/dL 20.00 - 300.00 mg/dL [facility] Interpretation and review of laboratory results Abnormal [facility] MICROALBUM CREATININE RATIO UR 41.8 mg/g High 0.0 - 29.9 mg/g [facility] Comment on above: NO MICROALBUMINURIA 0-29 MG/G CLINICAL MICROALBUMINURIA 30-300 MG/G MACROALBUMINURIA >300 MG/G MICROALBUMIN URINE RANDOM 3.3 mg/dL NINF - 30.0 mg/dL [facility] Office Visiton 10-15-2024 Follow-up visit [id number] Eunice Marte 1955 [facility] Provider Department Center 10/15/2024 KELSEY COON SHANON Callahan Family History Problem Relation Age of Onset Heart disease Mother 58 Heart disease Maternal Grandmother Comments: heart trouble Heart disease Maternal Grandfather Comments: heart trouble Family Status - Relation Status Age at Mother Father Mother's Sister Mother's Brother Father's Sister Father's Brother Maternal Grandmother Maternal Grandfather Paternal Grandmother Paternal Grandfather Other Level of Service:91710 [place] OFFICE/OUTPATIENT ESTABLISHED LOW MDM 20 MIN Normal [facility] Orders Onlyon 10-15-2024 Orders Only [id number] Eunice Marte 1955 [facility] Provider Department Center 10/15/2024 BRADY BORGES SHANON Callahan Family History Problem Relation Age of Onset Heart disease Mother 58 Heart disease Maternal Grandmother Comments: heart trouble Heart disease Maternal Grandfather Comments: heart trouble Family Status - Relation Status Age at Mother Father Mother's Sister Mother's Brother Father's Sister Father's Brother Maternal Grandmother Maternal Grandfather Paternal Grandmother Paternal Grandfather Other Normal [facility] Follow-Upon 08-07-2024 Follow-Up [id number] Eunice Marte 1955 M Date Provider Department [...] Paternal Grandmother Paternal Grandfather Other Level of Service:01034 [place] OFFICE/OUTPATIENT ESTABLISHED LOW MDM 20 MIN Reason for Visit and Comments: Follow-up [434203] - Here for F/U of his prostate CA and to review PSA & Testosterone results. Normal [facility] LIPID PANELon 07-24-2024 CHOL/HDL 3.8 mg/dL Normal [facility] Comment on above: Performed By: #### L [id number] ####[facility] ([facility])[address] [facility] [place] [address] Cholesterol [Mass/Vol] 150 mg/dL Normal 120-200 [facility] Comment on above: Performed By: #### L [id number] ####[facility] ([facility]Aldagen)[address] [facility] [place] [address] Magnesium [Mass/Vol] 111 mg/dL Normal 40-149 [facility] Comment on above: Result Comment: TRIG LYCERIDE REFERENCE RANGE: 20 YEARS AND OLDER CARDIOVASCULAR RISK LESS THAN 150 mg/dL LOW RISK 150 TO 199 mg/dL BORDERLINE RISK 200 mg/dL AND GREATER HIGH RISK Performed By: #### L [id number] ####[facility] ([facility])[address] [place] [address] Magnesium [Mass/Vol] 88 mg/dL Normal 0-[address] [facility] Comment on above: Performed By: #### L [id number] ####[facility] (BEAKER)[address] [place] [address] Magnesium [Mass/Vol] 40 mg/dL Normal 23-[address] [facility] Comment on above: Performed By: #### L [id number] ####[facility] (BEAKER)[address] [place] [address] NON HDL CHOL. (LDL+VLDL) 110 Normal [facility] Comment on above: Performed By: #### L [id number] ####[facility] ([facility])[address] [place] [address] TOTAL VLDL-C 22 mg/dL Normal 0-40 [facility] Comment on above: Performed By: #### L [id number] ####[facility] ([facility])[address] [place] [address] Labon 07-24-[id number] [place], [place] [address]Eunice 1955 M Date Provider Department Center 07/24/2024 2243-[facility] DCC LAB RESOURCE DCC DRAW DCC Family History Problem Relation Age of Onset Heart disease Mother 58 Heart disease Maternal Grandmother Comments: heart trouble Heart disease Maternal Grandfather Comments: heart trouble Family Status - Relation Status Age at Mother Father Mother's Sister Mother's Brother Father's Sister Father's Brother Maternal Grandmother Maternal Grandfather Paternal Grandmother Paternal Grandfather Other Normal [facility] PSA, DIAGNOSTICon 07-24-2024 PROSTATE SPECIFIC AG (NG/ML) IN SER/PLAS 0.1 ng/mL Low 0.4-4 [facility] Comment on above: Order Comment: To be collected 07/2024 Performed By: #### L [id number] #### [facility] ([facility]) [address] [place] [address] TESTOSTERONEon 07-24-2024 TESTOSTERONE (NG/DL) IN SER/PLAS 52 ng/dL Low 193-740 [facility] Comment on above: Order Comment: To be collected 07/2024 Result Comment: Test Performed by [facility] [employer] [address] [place] [address] - Lujhhopx 07/25/2024 11:50 Performed By: #### L [id number] ####[facility] [id number] [place] [address] Office Visiton 06-01-2024 Follow-up visit [id number] [place], [place] [address]Eunice 1955 M Date Provider Department Center 06/01/2024 3848-KELSEY JUDD SHANON Callahan Family History Problem Relation Age of Onset Heart disease Mother 58 Heart disease Maternal Grandmother Comments: heart trouble Heart disease Maternal Grandfather Comments: heart trouble Family Status - Relation Status Age at Mother Father Mother's Sister Mother's Brother Father's Sister Father's Brother Maternal Grandmother Maternal Grandfather Paternal Grandmother Paternal Grandfather Other Level of Service:04435 [place] OFFICE/OUTPATIENT ESTABLISHED LOW MDM 20 MIN Normal [facility] Orders Onlyon 04-25-2024 Orders Only [id number] [facility] 1955 [facility] Date Provider Department Center 04/25/2024 1052-ROSEMARY LEVIN [facility] INT MED Comprehensiv Family History Problem Relation Age of Onset Heart disease Mother 58 Heart disease Maternal Grandmother Comments: heart trouble Heart disease Maternal Grandfather Comments: heart trouble Family Status - Relation Status Age at Mother Father Mother's Sister Mother's Brother Father's Sister Father's Brother Maternal Grandmother Maternal Grandfather Paternal Grandmother Paternal Grandfather Other Normal [facility] Documentationon 04-17-2024 Documentation [id number] [facility] 1955 M Date Provider Department Center 04/17/2024 [...] Comments: Specialty Phamracy Note: Repatha [Other] Normal [facility] Documentation [id number] [facility] 1955 Date Provider Department Center 04/17/2024 [id number]-BIXB, [facility] CARD UT HeartVAS Family History Problem Relation Age of Onset Heart disease Mother 58 Heart disease Maternal Grandmother Comments: heart trouble Heart disease Maternal Grandfather Comments: heart trouble Family Status - Relation Status Age at Mother Father Mother's Sister Mother's Brother Father's Sister Father's Brother Maternal Grandmother Maternal Grandfather Paternal Grandmother Paternal Grandfather Other Reason for Visit and Comments: PCSK9i [Other] Normal [facility] Orders Onlyon 04-16-2024 Orders Only [id number] Eunice Marte 1955 M Date Provider Department Center 04/16/2024 Navid-[facility]IVIAN [facility] CARD UT HeartVAS Family History Problem Relation Age of Onset Heart disease Mother 58 Heart disease Maternal Grandmother Comments: heart trouble Heart disease Maternal Grandfather Comments: heart trouble Family Status - Relation Status Age at Mother Father Mother's Sister Mother's Brother Father's Sister Father's Brother Maternal Grandmother Maternal Grandfather Paternal Grandmother Paternal Grandfather Other Normal [facility] MLR HEMOGLOBIN A1Con 024 Glucose [Mass/Vol] 189 mg/dL [facility] HbA1c (Bld) [Mass fraction] 8.2 % High 4.5 - 6.2 % [facility] Comment on above: ADA RECOMMENDED LIMI T 4.0 - 6.0 ADA THERAPEUTIC TARGET < 7.0 ACTION SUGGESTED > 7.0 Interpretation and review of laboratory results Abnormal [facility] Pathology Reporton 3 Pathology Report [id number] 7#1.00CD:127 Normal [facility] Urology Office/Clinic Noteon 02-03-2023 Urology Office/Clinic Note Chief Complaint Pt is here for 3 month f/u HPI Staff Eunice is a 67 y.o. male here for 3 month follow up. Previous DX: Prostate Cancer, BPH, Nocturia, ED. *Oxybutynin 5mg QD & Myrbetriq 50mg QD therapy. Pt referred to to [place] for Retzius sparing prostatectomy. Pt saw Dr [...] Unsure why seen by 2 Urologists at [facility], notes were reviewed Urology consult Dr. Valdemar Ramos [facility] 11/30/22. Urology oncology consult Dr. Phyllis Acosta [facility] 12/07/22 - plans for RALP [...] prostatectomy/IPP infectio (more content not included)... Normal [facility] Comment on above: Result Comment: Elec tronically [...] bladder) ALLISON (more content not included)... Normal [facility] Patient Educationon 02-03-20 Patient Education Oncology Prostate [...] likelihood that the cancer will spread. ? Elbe 6 or lower: This indicates that the cancer cells look similar to normal prostate cells (well differentiated). ? Gilbert 7: This indicates that the cancer cells look somewhat similar to normal prostate cells (moderately differentiated). ? Elbe 8, 9, or 10: This indicates that [...] Like external be (more content not included)... [facility] Provider Letteron 02-02-2023 Provider Letter February 02, 2023 [facility] [address] [place] [id number] : 1955 To Whom It May Concern, Please excuse above patient from work. Date of Appointments: From: 02/02/2023 To: _ May Return to Work On:02/03/2023 Restrictions: none Comments: [facility] is with patient for all appointments, any question, please call our office Sincerely, [facility] [address], [place] [address] [facility] Screenson 02-02-2023 Screens [id number] 4#1.00CD:127 [facility] Screens [id number] 5#1.00CD:127 [facility] Consultation Noteon 02-02-20 23 Consultation Note [id number] #1.00CD:127 [facility] Consultation Noteon 12-09-19 Consultation Note [id number] #1.00CD:127 Normal [facility] Ambulatory Visit Summaryon 0 11-03-2022 Ambulatory Visit Summary EUNICE MARTE :1955 Visit Date:11/03/2022 Ambulatory Visit Instructions Your Diagnosis Prostate cancer Enlarged prostate with urinary obstruction Nocturia Erectile dysfunction Tests Performed Urnls Dip Stick Auto w/o Microscopy POC 56019 Your Care Team Attending Physician - Dewey [...] Milvia Palomo MD Where: [facility] Sujey Hooper [facility] Patient Educationon 11-04-19 23 Patient Education Oncology [...] Are older than age 65. ? Are -Montserratian. ? Are obese. ? Have a family [...] Follow these instructions at home: ? Take foly-vqe-akihapa and prescription medicines only as told by [...] cancer specialis (more content not included)... Normal [facility] Urology Office/Clinic Noteon 11-03-2022 Urology Office/Clinic Note [...] wks recommended if proceeding Was referred to [facility] for retzius sparing prostatectomy consult, has yet to be contacted. Pt still wants to procedure with surgical intervention over radiation. Follow up 2-3 mos or sooner if needed. Pt understands and agrees with plan. -contact [facility], will call pt with update. Pt to call our office if they do not hear from [facility] in 2-3 wks 2. Enlarged [...] URL, URO (more content not included)... Normal [facility] Comment on above: Result Comment: Elec tronically Signed By: Milvia Palomo MD\.br\Date and Time Signed: 11/03/22 08:40 EDT\.br\Electronically Co-Signed By: Gifty Mann\.br\Date and Time Co-Signed: 11/03/22 08:35 EDT Lab [facility] 10-26-2022 Lab Reports [id number] #1.00CD:127 Normal [facility] PSA, FREE AND TOTAL RATIOon 10-26-2022 % Free PSA 5.0 % Normal [facility] Comment on above: Result Comment: The [...] Performed By: #### P TT, PT #### [facility] [address] [place] [address] Dr. Marcell Luque Prostate specific Ag [Mass/Vol] 8.2 ng/mL Critically high 0.0-4.0 [facility] Comment on above: Result Comment: Anamika DENIS methodology. . According to the [place] [employer], Serum PSA should decrease and [...] Performed By: #### P TT, PT #### [facility] [address] [place] [address] Dr. Marcell Luque PSA, Free 0.41 ng/mL Normal N/A [facility] Comment on above: Result Comment: Anamika rahman ECLIA methodology. Performed By: #### P TT, PT #### [facility] [address] [place] [address] Dr. Marcell Luque Auth for Release of Medical Recordson 10-25-2022 Auth for Release of Medical Records [id number] #1.00CD:127 Normal [facility] 10-11-2022 Screens [id number] 78#1.00CD:127 Normal [facility] Screens [id number] #1.00CD:127 [facility] Ambulatory Visit Summaryon 0 10-06-2022 Ambulatory Visit Summary EUNICE MARTE :1955 Visit Date:10/06/2022 Ambulatory Visit Instructions Your Diagnosis Prostate cancer BPH with urinary obstruction Nocturia Erectile dysfunction Tests Performed Urnls Dip Stick Auto w/o Microscopy POC 51133 Your Care Team Attending Physician - Milvia [...] Milvia Palomo MD Where: [facility] Patient Educationon 10-06-19 23 Patient Education Obstetrics [...] Reviewed: 03/28/2019 Elsevier Patient Education ? 2020 [employer] Oncology Brachytherapy for Prostate Cancer Brachytherapy for [...] including vitamins, herbs, eye drops, creams, and zcps-mqz-bsekcde medicines. ? Any problems you or family [...] that c (more content not included)... Normal [facility] Provider Letteron 10-06-2022 Provider Letter October 06, 2022 EUNICE MARTE [address] [place] [address] EUNICE MARTE 1955 To Whom It May Concern, Please excuse above patient from work. Date of Appointment: From: 10/06/2022 To: May Return to Work On:10/06/2022 Restrictions: Comments: Any questions, please call our office. Sincerely, [facility] [address] [place] [address] [facility] Urology Office/Clinic Noteon 10-06-2022 Urology [...] Hx IPP > 10 yrs ago in [place]. No prior abd surgeries. Hx L5 fusion, [...] Gifty Anthony (more content not included)... Normal [facility] Comment on above: Result Comment: Elec tronically Signed By: Milvia Palomo MD\.br\Date and Time Signed: 10/06/22 08:48 EST\.br\Electronically Co-Signed By: Gifty Mann\.br\Date and Time Co-Signed: 10/06/22 08:37 EST Lab [facility] 09-27-2022 Lab Reports [id number] #1.00CD:127 Normal [facility] Reference Lab Reporton 09-27 Reference Lab Report [id number] #1.00CD:127 Normal [facility] Consultation Noteon 09-24-19 Consultation Note [id number] #1.00CD:127 Normal [facility] RAD - Pet Scan Reporton RAD - Pet Scan Report [id number] #1.00CD:127 Normal [facility] Formson 09-10-2022 Forms [id number] #1.00CD:127 Normal [facility] RAD - CT Reporton 08-20-2022 RAD - CT Report [id number] #1.00CD:127 Normal [facility] Lab Reportson 08-09-2022 Lab Reports [id number] #1.00CD:127 Normal [facility] CREATININEon 08-06-2022 Creatinine [Mass/Vol] 0.99 mg/dL Normal 0.70-1.30 [facility] Comment on above: Performed By: #### C MATI #### [facility] [address] [place] [address] Dr. Marcell Luque EGFR-AF MALAYSIAN >60 Normal >=60 [facility] Comment on above: Performed By: #### C MATI #### [facility] [address] [address] [address] Marcell Luque EGFR-NON AF MALAYSIAN >60 Normal >=60 [facility] Comment on above: Performed By: #### C MATI #### [facility] [address] [place] [address] ABD/PELV W CONon [...] by: SUELLEN MAYO Date: 2022-08-06 16:00 Normal [facility] Physician Orderon 08-05-2022 Physician Order [id number] #1.00CD:127 Normal [facility] Screenson 08-05-2022 Screens [id number] #1.00CD:127 Normal [facility] Screens [id number] #1.00CD:127 Normal [facility] Patient Educationon 08-04-20 Patient Education Oncology Brachytherapy [...] including vitamins, herbs, eye drops, creams, and ryut-qso-otyrgwk medicines. ? Any problems you or family [...] You w (more content not included)... Normal [facility] Provider Letteron 08-04-2022 Provider Letter August 04, 2022 EUNICE MARTE [address] [facility] [place] [address] EUNICE MARTE 1955 To Whom It May Concern, Please excuse above patient from work. Date of Illness: From: 08/04/2022 To: 08/04/2022 May Return to Work On: Restrictions: _ Comments: Sincerely, [facility] [address] [place] [address] Normal [facility] Urology Office/Clinic Noteon 08-04-2022 Urology Office/Clinic Note [...] lymph node dissection. I showed him the [facility] calculator which estimate his risk of organ [...] Discussed effects of tx on ED Orders: [facility] [place] External Ambulatory Referral Follow-up With When Contact Information Dewey COTTO, Milvia Lucia, URL, URO Within 1 month Additional Instructions: Discuss PSMA PET scan & treatment options Patient Education Brachytherapy for Prostate Cancer Good Anthony (more content not included)... Normal [facility] Comment on above: Result Comment: Elec tronically Signed By: Milvia Palomo MD\.br\Date and Time Signed: 08/04/22 10:53 EST Reminderson 08-03-2022 Reminders - From: Lulu Peralta LPN To: N - Clinical; Sent: 08/03/2022 14:08:01 EST Show up: 06/20/2032 07:00:00 EDT Subject: colonoscopy recall Due Date/Time: 07/21/2032 07:00:00 EST Reminder/Recall Patient is due for screening colonoscopy 07/21/2032. Normal [facility] Auth for Release of Medical Recordson 07-29-2022 Auth for Release of Medical Records [id number] #1.00CD:127 Normal [facility] Pathology Noteon 07-26-2022 Pathology Note [id number] #1.00CD:127 Normal [facility] Outside Colonoscopyon 2021 Outside Colonoscopy [id number] #1.00CD:127 Normal [facility] Lab Reportson 07-19-2022 Lab Reports [id number] #1.00CD:127 Normal [facility] Covid-19 PCR ([facility])on 06-23 SARS-CoV-2 (COVID-19) RNA NISHANT+probe Ql (Unsp spec) Not detected Normal NOT DETECTED [facility] Comment on above: Result Comment: When diagnostic [...] for this test is supported by the [place] of Health and Human Service's declaration that [...] Performed By: #### P TT, PT #### [facility] [address] [place] [address] Dr. Marcell Luque IntraOperative Documentson 1 09-11-2021 IntraOperative Documents [id number]#1.00CD:127 Normal [facility] Coding Summary.on 07-09-2022 Coding Summary. CD:[id number] Gh0bWw+PGhlYWQ+PE1FV GWpX66lrLEgzP7IC4mDR I2EPYOHSYKXHZ0ROM0af NA3DZvgR1BxzxOa RmgmwGIlLA03FBv8PYF9 rSysRNmhvL8ldEBrP4t9 RoUtNW18gJ58UMytIYMq CoT9YoRaursjhKZd R9bzVpNizMTkSvy+PHRh YmxlIHdpZHRoPScxMDAl NcQznXlwLK9sPj9zLESo LWNvbGxhcHNlOiBj v0ufGEKxHGpvIG6wdEhb X3IhrVS6KLWmm1g6Ho93 dHI+GAWdBGG4bXshTMbw n261PrKng1swOJF3 dWHkPTraMIO4Q35yp5X7 YHKwYLXcIMD6hBA6uO6r yAhcbjibW4EmjLVuNpA8 YPR2cMOruF9opCuh nxaygK8qBhi+L35HNC2C HSKPGI3STow8M4TrKici dHI+IU71DDDpPV00qZQv fULig3dtaOz6EfNl RYCpPNI8oZxrVXnqq7Ie YBDtM31jdHBlw2E8XTSa oHlomWZfBuHkiHA6cE5g URjnllrvo5hazrjh Fyhxe9ljke53eY76I55m KXboIHGlEPO8LYRdPJWs iSdwzn7zbG7cWw6+IDxj o4igy1zeuEx6BzHx UOGoaiPzxKwiJMJ5y0Vz Hr87G6CquEyqj1WfFml8 bm89hPBbv4H9qSB9BBny FHAmeL8hAMsvHvT0 BCGiNjScsK02xWVbNQau He4tpUrieAgiVT8dTACe sfiaARArhH1jJKCqpSXz tAqvJB3tFJLcvbzb b621FhNiHJB0GZTwqQEw E0BzkJ6hMlSsOHVdSNPe F9IbbIDeGCosY763PJif WwT3PQNbahOuE4Ru LKTicOpxEhH9x3Y8Sm4V w5KbdwccEZT2RKnlNGIt RvM8AkYpHdS0F5SmPug9 XZFbpArwAS6lG9Ip RJFlckgiwdawzMN8TFSg DSMimX25xILfSHorNk7o v4F1p027EKBcPKApmB48 Kz5gfYffSGFgjARH gF0pppysq1hqiroxFvZa MHRxXIj5EFy9LWTdpHvn FnMvVLG3MsW9AAN8nVTk lB1zvHpadvdamI3d Oyc+Q09fpI9mBWW0TAH0 boseGPFplxTpDA25DP37 Y3FaSozydJNjmOQ+PGRp huCjbGusWJ2zVpCd c6car6VsAHltJ1VmGBUo RJswPac1DHOmKQH3zDR2 lY8vFOMjBVite2E8vPY5 L2NnlhQeyh2lw6qd QQIdMSpvZ45xpHEfz3B1 JGSvkMV7WEBqqBbzSpZg aE50Vjn+KSWqoGgdb9Fx Iaupx7exc2lpsDz9 IjMwJSIgdmFsaWduPSJ0 t7LoYq12T05jGCdqRYCb XURdCULkEELczUmdqc8h uH1vRc7+PGNvbCB3 lXM6mX2iJJAoLmJ6QDka Y859RqItlLHeVvnxd7fj x8hszNw3PdXvDNLkibCk oUclKHV7y9MoTg96 T57zZXdlZTKqJPWhCLIh SHNuiSuxkg2iiM6mSx9+ XW9nk7apfr05eS90zTE+ TMAfAIH7zQlfDPfi AAStmO2sADdfYhE8BDDv UpHzxP59qJCuAMrzIj1e vUcqdPalIV1cGBLrgnym c163SaCfr3cyDNPv xTRqLJyfXLV6T93kl9O2 RAWrJYLmGNG8zNJ2kU3e bGlnbjogbGVmdDsgdmVy xZjfCNsyOFwxR429 IHRvcDsnPlBhdGllbnQg NiTxHWm0V4PsNtm9JTEi yAfhBC4iqHAuORadOc7w gPhmhMhrTL0rPHKd pcutc825SpUqn4dvSTDh xSHlFRhbIEN2O17rt6J4 OPRfLUYrHDT9hQD2uL4n bGlnbjogbGVmdDsg cdMotKrrQCqzVDyoH711 IHRvcDsnPkJpcnRoIERh aJX5HM44CU14kXLch7B3 yZB4U8BtANCfvcbe cvpouGV5EPXgKKXemQ15 Wq7bzEivJj7eDFAoDOM1 QCYccUQnB3RxcJ2aWzHr KQBrKKKuH1EtqGMv WXdzQ107AZteYaM9NSBs qiFbN3QtMTLuoYrvKaW4 n8Q0Ws3NC2N7FP34YP88 eIUiw7F9zNA0A1Zh PYFppshnsbdblFJ5VSLq AUCdpC75Tt2lsOwxBi3d NHAqKES7ZOGadICrT0Oy xJ3lVxNhOJAcUUIq Y0HxzOOrHPqtE126OPxl ZoG7FXEgjiUtO9RkBLHi iEkdGyB6q6R3Tw4AKJp2 RP73GH93rMOpg9O1 ePA1S4SuRWQmmhvirciw hVU1IOKsGGDspP99Ca1g yKqlJj7sKNJhFRT3VMXz aBXlW4QtsR2xMhJx MBXbAMMmG9EytCRzTJnd R463ECjzPfS3YYBxwlVo L4QhUYHqbNnsHjT4j0X4 Hu1MQYGdHB45SJR0 dWM0QR45DC01D2JwWaxw dGFibGU+PHRhYmxlIHdp ZHRoPScxMDAlJyBzdHls GU5pPr1lQETlMATb dDfpvKFxBeEed5diZWBm IDdmST2vaRwaH4NjmCI3 RSGir8z3Gb67L71vQ4Ft dXA+OINubXZ1gCI2 fT0dMhQvMpW0YNzzS777 YzQfbPGsOjrka6loi0yv gAc8AgV8GZQklpDvjVpj PLZ1q2XsLd12A85i IHdpZHRoPSIxNSUiIHZh mOrqiq6maP2vKp1+PGNv vFL7kAP4dX1jXwQuYtB0 WPrnY439MpJllZWr Myqco5blx2mtoOp7SdRf KXEkkuKtrVpdPJY9r7Fq Hp31Z8WuiJvyn4RwWml4 vw01rENbn7U4lKB9 K4XnFVMclrpldPYwyIkw GI0kZEUqrpreGALvoV8a ZCYeE9l2SbJoJtO0WYsa S7MntlH8IRNqtTBh QSskHYN9W89cz3D2OZQl YUTiFIW6oIC3aR0gfKit bjogbGVmdDsgdmVydGlj LLwtLEhfT524AUEw pZspQJDspV5tURBweVNt mDuzZY0qJAWefgdyFprH SURFTEJVUkcsIEpBTUVT SFW6A8UiMwq0LQFm zKazGF2luGEgRQwyHz2k xPicaMikYL8sRQBigbos NYKzxM5bKDVqhCHtlAcf KK1cUSJzucyue431 BpFfEWI3GVYsbIUuW3Ih tD0dJeJtFBKcPOBiK4Cy rFQvZPpeC389XNntDhQ8 YMNtwoPpR9YlVHBb hSqfMtN9b5A0Ue2wQu7v HF9iVCJ9WZ48DE82qKOj r3R1uSH8U3VcJHEncqqq hzzjaDZ8AAYuMHOg qX00tRImXZzoRj3wz4O0 f765SMFwFUWsvA04Jp2f dVfvMQDkfEJPkS2nicwo g5tjdxdlTvKlBGJi KPs9JId4JDQjbQijHjWq KUD2NiB5EXG8gEDlgJ8l sLewyswbhP5jRvc+NjYg JDTakhW8E6RbAia4 VPMolAdgTG3qtBMhMWas Ma6nvNcrgCweJG3lDFCr pecbQJVadZ8sUGFguLQi eFvjBA4vZLGokcuz r419ObRjPOE5MFQpjLDu V5EtnZ2kGtPiQSRiSTMy N2YvmZQoYGvtV724CUdv RgM4NNVyjaSmB6Kw HDNsrEaqPvF8u4E0Yl6Y HYofUA42YS32dXFkg8I0 lHN4I0DzPPPocrxepfyw cHO9VRJxGJTkqX97 wYFnYNdaEj8oz6Z3z502 BNUeRVVmoT38Gj1avGfn QKYjcWESlB5godjfo6tk cjogIzAwMDAwMDt0 NEv3BAPvgDdmGhYjJSY3 MgQ2CXI6nYIzbJ9ydXsz ehjneF4sQvv+VD8uyHcf lW4enQ7QWB9dNPUj dGVCrAMzVDI3DW33VK82 R3CzPqmloUTkyJO+PHRh YmxlIHdpZHRoPScxMDAl XuFfoTcbFV6eWu8z ZGVyLWNvbGxhcHNlOiBj z9qzYGTnCWloBY8wzFrm M4HvrSI8PYQgp1j2Ma24 J31dW9ZpvDB+PGNv cJG5nYO6iF9uGvNjEnP6 PKglY254HtXvdXEmCyjq v4jmi4dgaGy4EoGlVOJg tbHjpLaxFMA9q3Uq Eq76K69tXOisUZVgYPGd YDIaVGMmbOyayr5wtG0m Ii8+EAFokAX3rXW5cH7c JdYoPmA5GJbnL003 GwIrpUFlPffrB62qE4Sq dXA+JRNzNsk2JBTotVbn LL6glKRsDEohKb3gOVH7 FeSnZfTlOUehY7Gj JVTsybgufdkulUE5UAZb LZGbdL96Hj4etNvhMk4p LQJdMTJ8EAPigYDkG3Uc mZ0lTiVxUEWnEQTt Q6YccBHzLBmkU925JAgt IfJ8UKLrogHcZ5CiLWMl ePgjSxQ2l6H9Vc5ViAfz qUOuYX5bBaKlIJh5 B1YmPyn3THIvjZbsAL6j rBGrMYvlQv9qdCewhLfe GK5yCRXnqbarx561PhSu v5vuBKEbeSGmXNpj EQY4T30fm3I4TZVsVPZv GGM0pQF5zF8rwPzbgtgr bGVmdDsgdmVydGljYWwt FOsyF286ITRdxXer LyUTYme3M0QhTuc0RWAj dNuvLZ9iwYTbNIakUg3b fSaxuXzzLM8wEQYohklh l175LtLwk0kqWRZf rODbEGprHHP7H98ly1I3 HVNaFPEwGLE7lYE3cN3i bGlnbjogbGVmdDsgdmVy zIwlRJymUWrxG437 JNPnfGwsFg0CQbz0H6Jl Ygh0DUQvyVeoOP2kmHCq GQskRt0luVlfiKtuGM9a IZTwuzznb957CmBu o7tvLHGrpLPhNOoxQSO9 I24mx0Z5ANHeDKEuZRA0 aIF9fB0tiQtnzkodmOGh dDsgdmVydGljYWwt ITsyW982UJLweZibTbGp eWVyOjwvdGQ+YE51bq18 P7GwMbeaSmq3AFLeOKQ2 zGG0pF4hJRYgMCiy c3R5 (more content not included)... Normal [facility] Main OR Intraoperative Recor don 07-09-2022 Main OR Intraoperative Record IntraOp Document Type FT Summary Primary Physician: Milvia Palomo MD Finalized Date/Time: 07/09/22 13:38:52 Pt. Name: EUNICE MARTE Quinton Huertas/Sex: 1955 Male Med Rec #: [id number] Physician: Milvia Palomo MD Financial #: [id number] Pt. Type: A Room/Bed: [address] [place] [address] Admit/Disch: 07/06/22 10:08:27 - 07/06/22 17:20:00 Institution: [...] Erik Lynn RN, June Chiang Role Performed Rod Pointer - Primary Rod Pointer - Primary Time In 07/06/22 14:55:00 07/06/22 14:55:00 Time Out 07/06/22 15:17:00 07/06/22 15:47:00 Procedure PROSTATE TRANSPERINEAL PROSTATE TRANSPERINEAL BIOPSY WITH ULTRA(.) BIOPSY WITH ULTRA(.) Comments ORIENTING PRECEPTING Last Modified By: Katherin STEEL, June Parsons RN 07/06/22 15:47:47 07/06/22 15:47:47 General Comments: PADMINI WILSON - FORTEC REP. Quinton RUIZ - PERINEOLOGIC REP. 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 Yes Last Modified By: Erik Lynn 07/06/22 15:10:56 Post-Care Text: The patient is free from signs and symptoms of injury caused by extraneous objects Patient Positioning FT Pre-Care Text: Identifies physical alterations that require additional precautions for procedure-specific positioning, verifies presence of pr (more content not included)... Normal [facility] Postoperative Documentson Postoperative Documents [id number] #1.00CD:127 Normal [facility] Coding Summary.on 07-07-2022 Coding Summary. CD:[id number] Gh0bWw+PGhlYWQ+PE1FV LRhN24aaNLqbK6WY7bII E4PSDHLNPALBN6ZBR7ow SZ9EQiyL0XpwrLv AseimWEzZR79RGm9CVC6 nKknXVipuH3twLSjQ3b5 WhGhMP27kE51FKifJFDw ScP0AiWkjaqhnPPr L7ruOmCkzSBdVar+PHRh YmxlIHdpZHRoPScxMDAl KwTdhIvhRH0iBo4rSEBc LWNvbGxhcHNlOiBj j4joNRDpWJqjJS1veXmm Z4EbnMO8GPMjn6y5Xc00 dHI+LYHeNNV3fWjmCNkf s344MaVse1amHKJ4 oBMiUOzjNQQ5F46sf9L4 IFMhDZRkOTF3mLT7gZ9a rHhpkhjhN3OtfFVgNyF0 FTX8uZQhzU4qfTtg xojgfJ6dBwy+L14LGP4C NKIYJT4PQpj8Z5AhVmft dHI+IF98EJCmML54rNQu jKBec4zkzJd5ZnSq QXMtVUM7jPixGTtjc6Cf RGNrO16mjYPvx4R9XKZm dXarkAXnUvSbuQE3tN7m WLhdlcays5zefuop Iwoxe2ajnr53yH92X94x NKkwTOMoMDP3NTEuLIKg sLmrpi7aqM2oWt1+IDxj j2lmk8vemMu1BsNr HPNgfaMucWmqFBI6q8Ny Bz42S3JbiOegv7KlKit7 pf36yXHdg0C6cER2LFoj QDVhgT7yPKklOvP4 TIFgEgJhjO58dFLyAPfk Xv9qyZfzgHbrAZ0iSCGq kevxZBTpeO3qRXRxmFNa pIleOD2yXDUnxxry l818TkVoEMB6CLJqcCNd J0TdkU6kRqKsDYPrFPZm C1JemRAtVAkrL398EUmw NjM1NYByrsXrU8Zx YDQysAezDuP3g4F6Ur8B l6SyfobmWAH4IMhyEPFl JiX4OjAyOhY4T0KmDmi7 FKLlkOcoHM4lX9Rl CKCknnminnhyoXS4QUHg RPNdqV96iVZmQHquQz9e r8K9h023BNQhSXBaeF20 Ea2xoFhqANDpaJKF jV5hdgcxt6ybvadfMsQc XTLhLBy5VXa0MWRnsIsx OpPxWUN0PpY3SGF3qXCs xA1xmTfxghcqaZ0y Oyc+B66luA5dBHK1CHW1 bivsYDRgjcLfDN89TW76 F4OwYyiiwLGprVN+PGRp kqRszIdlVS7lWyVk j8jqo6XdNOspQ4YsILFr WTaxKqt9WOJjJNN9nGR6 uR3pNUEvJAogz9L8jNX7 O3GhdrBbmm1mq7wy JXNuJKnpM65cmPWsp3X6 YEEbqMB0AJFwlEiaHyMh oV93Rmf+ANLdpMsda0Jw Tydri2ehw0zccUl0 IjMwJSIgdmFsaWduPSJ0 x2FxDp45C02fMSqrUVTk USNbNYUnJQRwaXnshh4e jW3oMc4+PGNvbCB3 sJD8sP9wYPIqZjJ0TVod P513HmUrgELuWucau8ia s2nsgKu9AgLpZCUsfcAb zOhwYID3f2KoLv92 L80dHAoyDHKdDQQjEFOu XTDkwMocnb4tjX2mHv9+ CF2gm9moqx39dJ13yIC+ STMzOZZ3xBykHCia QCAmbJ8qPKrtYzW4FHAw JtHsiP16fWQsKGzpQk9n iKlasZkmJK6zSOPsveij j357XgLgu7mmWPBz cYQjGMgxUAT9R51fd2K4 UKVaYXOhSBY0zJG0wE1i bGlnbjogbGVmdDsgdmVy wTjdLLqoYWecC571 IHRvcDsnPlBhdGllbnQg OsChQYt0N8OvWih1FDLe mDxwUQ6rdLUbZJcuCy7o aThloTwdMV0cZWAz qzicb007QoJyc3fgKNLt dMEiTUqnUSI3F71xf2A4 MNSeFZTiUYE7wBD4zC4f bGlnbjogbGVmdDsg qzYtkLfxGJwgJTgrW588 IHRvcDsnPkJpcnRoIERh pDF2II44DA10bEBkz9I9 sWS2A3GlUMCzbdnr lsuomBH6SSNiDHRgcA59 Dg7gzLkoQl1tBHAtJWR5 RTNvzTNsD6KtxK8rVoXx SWHkOEFpM5VgsQFy TXedE219TCksVaC1PKQb zqNeC4KcDHUbaIkxQaO8 j1X1Kb7OV5L6TH41NH10 mTGiu2M1gAB6E6Tb CIHiwpflohlbhIO6QGYr UERjnX56Gw1apIteEu4y TIXpMYN5BUPquNIlB2Jq wC8cPcKfHYWaOVSo Q1CwyKXxFRdgM976GCop CkD0AWHyreFoC7LbPIMv sPhjRoX0r0W8Ix8IKWq6 KC56OG42eHMki9N1 sZJ4V7UsCCRoooasvrdt qQN7PLPgMCIdfJ19Hs1o pZeiZw5qFBQcSDY6TLZt jHEyW9UisQ5dExDo FDNlWWTlF3AmhHThTWwc D712TDtoRvR3UNGzbqWz Z7WnEVJlhVfcGyZ3z5N0 Lt2ETTTcET03BXD0 hZY5OG84TN08D4HhGlne dGFibGU+PHRhYmxlIHdp ZHRoPScxMDAlJyBzdHls JV1jSb0tTVXhJACh uIdneWYiExWhb1slLLDb QIokLE2fsFlbA9CtqTV6 WHCjc7s5Br08W27hD7Eb dXA+QWRnyHO1mYL6 bM3jPkShWoW5GNzvF724 DqQgdFCxNygzd6pmp8pk rCp7WiQ7RWFgkuVayYsc OOV9y2LwPg02E81r IHdpZHRoPSIxNSUiIHZh rUfhfy7aoG2pZp7+PGNv tLC0tJC0zX9cTjNeDjK5 DJfiW108TbIrgEOp Msqpt2qvp2zkpVr8QqAo PCSzfqJpbRmwHOJ2c5Kl Sk85F3HmwVvan8GcJhm6 iq75dVBfn2L7jJQ4 C7XcLPXarmgovGHihLpi MN8rRVAxgjpcYHEtjP2l BZZoX0g7RaOvMqG1TUwe C7JpxaJ1UEXloDZe LRquCST7J98ig8T1NOWw YGRyYGA2tGP8bT7jkMec bjogbGVmdDsgdmVydGlj IDvpWQiyZ113MSBf oXroGQJwiK5vJRCizEBj mOghCQ5wQXTfroecChrA SURFTEJVUkcsIEpBTUVT WWW6V5PiUia0LHJx mGrzLX6vwLShMZobAq5l oUbbwPikPZ7sZEMjjtmp CMVbzZ1wRYBggCRqmMms DZ2nKBXfllifw478 VqPkYTR6BPEtkSGjD6Zk lR9cAoWvREBbYNRaO0Lm uVLtMOeiJ367KVkjBsM9 NXGdmnXwX5AhWZFy iOfkPnU2c8Y4Fm2pJz6q UG4xQYK3BS44PS56iBFg o0R8bNV5M9TgFLDjbkuq advijRZ9FZZyBVEl jG46mJNcPXjbHk3dz5P4 h405OJMyFBVaqV61Jr0r wTvgPIHcoWWAjW1gnvcz l0vuzjcaZeCtPXXw SDc1IMr6BEEugWijQwIp ZJR9NcH7IKJ2zOBcmU2z hGizbtsrtQ9zFah+NjYg VEZuciJ2X8EeLzf5 TMMprDakCJ1lvTFgAKms Ly4pgFzotStdCC4bKUFz crxiDMCrlB5qHEKosPMo pSgyWQ9gRMGmnbzi c638YqUfSMZ4HOKncJLm I6XypJ9sJbWmLKTmGINg F8RspDWiKFwyF658JDzj SxI2FXDahnApJ9Zu UXLiwLrgRyH7t4Z3Ce2Q HIdqPF56WL93wNTlz8X3 jMO8S2YoSQEjfltcxgie nED4XPLfXLXcnO24 qRBcHDpjCx1gx7I3k868 WVQqFQMhoR54Be5fbVqn RYJzdYFTjP9fpaswk9ie cjogIzAwMDAwMDt0 CKv8AEPxqCtwNtJpHYX1 OgD5MAV1eJBmkD2qiSck clrlhS9lZmo+H2K9qQM0 aWVudDwvdGQ+PC90 hk08K2EmUrtiVgv5SWQp ROX4iSU6gG4uKQMjCKmj m2T1gFD4D9OfkiFvtm1n m9kxCWQfTJiyH54y hDEad2L1IWRusON1OTOw wMqzRvRihB45Kbh+PGNv vOsei7FgAgxgq0fmf1ak vGc6LaErBWGjahMi kNiuTJX5n8MnRy73I17m IHdpZHRoPSIzMCUiIHZh pXtryk3ysE6fRy3+PGNv pJX5pMG8gV4aEbTx XqR3NEppX503LwAyqQAn Bynrm9ybb3ssrEp3UiLz WJIagbMhrFfpWAF0f5En Jl88B9RapWowx8Pz Lnz7dq95nRXqx5D2cYR6 K4RbKVWkiyryiJGitAzo YS2mWLCzfzdoEKYyiS0c EAZiE0d9DyRrNbG3 VJfkM8SejuJ4KKFyuIJk FUTotLKQdK8yrjpec9ii lglnOvUkASTtERk4MKq5 LWFsaWduOiBsZWZ0 HeJ8OBX7tCYkoF3ovArg ovfkcA7lPyu+OFb7b8he qGToJK9vbXH9YZ32SN91 aKLdz3D7bVG1J6As JZOefhzszcvxeOY3VPAh OOTthR67Pt6fmPnuMo2s LBEbLRT5BBVzwDXpV4Da vR7kHzNtJNDxAKZr F7KukQSbUFkvX514PJfc GwA4YJOkffWfT1JjIMUc wTzpIgB7k1F8Lp3ABY86 JQ41ES01fEMrs9I3 rQP3G5ZvOCAoplketbcd zFA2PNVqTBSlnT84Td7i sGgqTb3kCUQqLXQ3KWBb cTRbZ2DamH2sDiYa REPyYPMfB6IroBOqXStf T921MDedTvJ6DPElgmZw V2EkXDBggXruVvT5v5V8 Cx2ACb97NW32WM87 uKWwd3I8lSK1I9IzZWGq bchnprameDS8NEQtEVLh nQ14Zb5vcAkkJi1oJINu SZF4AFOguJBqT3Ev aD0tRxBkWSUqBMCgY0Ye qPPkGVaoR487HYpsEuP9 FZOucdDeO4VrZWRnlNdt BoX6a1P7Kh0ZTXls edt3N2YiCilsrSH+PC90 FVFrDP78eWZusGPdf6zz oOt1OmAcKWSdPOT1dMdq SQhuz5WqBSEnS03v bGFw (more content not included)... [facility] Consent for Anesthesiaon Consent for Anesthesia [id number] 2#1.00CD:127 Normal [facility] Consent for Procedure/Surger yon 07-07-2022 Consent for Procedure/Surgery [id number] 8#1.00CD:127 Normal [facility] Discharge Instructionson Discharge Instructions [id number] 5#1.00CD:127 Normal [facility] IntraOperative Documentson 09-06-2021 IntraOperative Documents [id number] 5#1.00CD:127 Normal [facility] IntraOperative Documents [id number] 2#1.00CD:127 Normal [facility] Preoperative Documentson Preoperative Documents [id number] 4#1.00CD:127 Normal [facility] Preoperative Documents [id number] 7#1.00CD:127 [facility] Prescriptions/Work Noteson 09-06-2021 Prescriptions/Work Notes [id number] 5#1.00CD:127 Normal [facility] Capillary Glucose POCon 06-22 Glucose [Mass/Vol] 216 mg/dL High 55-99 [facility] Comment on above: Result Comment: Jluis SANTANA Performed By: #### 2 [id number] ####[facility] [address] [place] [address] Glucose [Mass/Vol] 233 mg/dL High 55-99 [facility] Comment on above: Result Comment: Jluis SANTANA Performed By: #### 2 [id number] ####[facility] [address] [place] [address] Glucose Cap <20 Abnormal 55-99 [facility] Comment on above: Result Comment: Repe at Test Performed By: #### 2 [id number] ####[facility] [address] [place] [address] Consent for Treatmenton 06-22 Consent for Treatment [id number] #1.00CD:127 Normal [facility] H&P Updateon 07-06-2022 H&P Update [id number] #1.00CD:127 Normal [facility] Inpatient Patient Summaryon 07-06-2022 Inpatient Patient Summary [place] [id number] [facility] Clinical Discharge Instructions PERSON INFORMATION Name: EUNICE MARTE [facility]#:[id number] PHYSICIANS Admitting Physician: Milvia Palomo MD Attending [...] Address: When: Milvia Palomo [address] [place] [address] [phone] Business (1) [address] [place] [address], [address] [address] [phone] Business (1) Comments: Office to followup appointment in 2 weeks for pathology review Type Location Start Finish State URO Office Visit [facility] 07/21/2022 9:30 AM 07/21/2022 9:45 AM Confirmed URO Office Visit [facility] 10/12/2022 10:30 AM 10/12/2022 10:45 AM [...] needed Other (see comment)., skin Comment: Normal [facility] Laboratory - Chemistry and C hemistry - [...] Invalid Interpretation Code 55 - 99 mg/dL [facility] POC Subsection Comment on above: Result Comment: Repe at Test Main OR PACU I Recordon 06-22 Main OR PACU I Record PACU Phase I Document Type FT Summary Primary Physician: Milvia Palomo MD Finalized Date/Time: 07/06/22 16:28:27 Pt. Name: EUNICE MARTE Quinton Delvalle/Sex: 1955 Male Med Rec #: [id number] Physician: Milvia Palomo MD Financial #: [id number] Pt. Type: A Room/Bed: [place] [address] Admit/Disch: 07/06/22 10:08:27 - Institution: Case Times [...] By: Chen Ramos RN 07/06/22 16:28 Normal [facility] Main OR PACU II Recordon Main OR PACU II Record PACU Phase II Document Type FT Summary Primary Physician: Milvia Palomo MD Finalized Date/Time: 07/06/22 17:20:35 Pt. Name: LYDIAEUNICE/Sex: 1955 Male Med Rec #: [id number] Physician: Milvia Palomo MD Financial #: [id number] Pt. Type: Room/Bed: [place] [address] Admit/Disch: 07/06/22 10:08:27 - Institution: Case Times [...] By: Yissel Arellano RN 07/06/22 17:20 Normal [facility] Main OR Preoperative Recordo n 07-06-2022 Main OR Preoperative Record PreOp Document Type FT Summary Primary Physician: Milvia Palomo MD Finalized Date/Time: 07/06/22 15:10:00 Pt. Name: EUNICE MARTE Quinton Iniguez./Sex: 1955 Male Med Rec #: [id number] Physician: Milvia Palomo MD Financial #: [id number] Pt. Type: A Room/Bed: [facility]/ Admit/Disch: 07/06/22 10:08:27 - Institution: Case [...] Signed By: Erik Lynn 07/06/22 15:10 Normal [facility] Monitor Recordon 07-06-2022 Monitor Record [id number] 5#1.00CD:127 Normal [facility] No Panel InformationOrdered By: Lab CHERUser on 07-06-2022 POC Device SN [id number] Invalid Interpretation Code FT POC Subsection POC User ID [id number] Invalid Interpretation Code [facility] POC Subsection POC [employer]am[place] Invalid Interpretation Code FT POC Subsection POC Device SN [id number] Invalid Interpretation Code FT POC Subsection POC User ID [id number] Invalid Interpretation Code FT POC Subsection POC [place]ernam[place] Invalid Interpretation Code FT POC Subsection POC Device SN [id number] Invalid Interpretation Code FT POC Subsection POC User ID [id number] Invalid Interpretation Code FT POC Subsection POC [...] perineum is prepped with Betadine solution. The [employer] Uro[employer] fusion biopsy system was set up [...] . Impression and Plan Diagnosis Elevated PSA ([id number]-ZZ R97.20, Discharge, Medical). Diagnosis Elevated PSA ([id number] R97.20, Discharge, Medical). Counseled: Patient, Family. Normal [facility] Comment on above: Result Comment: Elec tronically Signed By: Milvia Palomo MD\.br\Date and Time Signed: 07/06/22 16:17 EST Outpatient Surgery Discharge Instructionon 07-06-2022 Outpatient Surgery Discharge Instruction [address] [address] Patient Discharge Instructions PERSON INFORMATION Name: EUNICE MARET Date of : 1955 Current Date: 07/06/2022 [...] Milvia Palomo [address] [place] [address] [phone] Business (1) [address] [facility] [address] [place] [address] [phone] Business (1) Comments: Office to followup appointment in 2 weeks for pathology review Type Location Start Finish State [facility] Office Visit [facility] EU Sujey 07/21/2022 9:30 AM 07/21/2022 9:45 AM Confirmed [facility]12[facility] 10:30 AM 10/12/2022 10:45 AM Confirmed Pharmacy Information: You may receive a survey from [employer] asking you to rate your care experience. Your feedback is important and will help us understand what we do well and how we can improve the quality of care we provide to you, your loved ones and our community. It?s an honor to serve you. Thank you for choosing [facility] HERE ARE THE MEDICATION CHANGES [...] Tylenol alte (more content not included)... Normal [facility] Patient Education - Texton 1 09-05-2021 Patient [...] for your post-operative appointment in 1-2 weeks [phone] or [phone] Normal [facility] Progress Note-Nurseon 2021 Progress Note-Nurse In discharge [...] out of the anesthesia guideline protocol. Normal [facility] Progress Note-Physicianon Progress Note-Physician Patient: EUNICE MARTE Age: 66 years Sex: Male : 1955 Associated Diagnoses: None Author: Scout Lamas Jr., DO Postoperative Information Post Operative Note: Post Anesthesia Care Unit. Anesthetic utilized: General. Health Status Allergies: Allergic Reactions (Selected) Moderate Penicillin- Unknown. Severity Not Documented Labetalol- Unknown (origin). Problem list: All Problems Abdominal pain, LLQ / SNOMED CT 873784687 / Confirmed Asthma / SNOMED CT 772685578 / Confirmed BMI 31.0-31.9,adult / SNOMED CT 562609288 / Confirmed BPH with elevated PSA / SNOMED CT 649107116 / Confirmed BPH with urinary obstruction / SNOMED CT 7040920202 / Confirmed CKD (chronic kidney disease), stage III / SNOMED CT 4995511417 / Confirmed Depression / SNOMED CT 65439921 / Confirmed Diabetes / SNOMED CT 409665262 / Confirmed Dyshidrotic eczema / SNOMED CT 981922078 / Confirmed Elevated PSA / SNOMED CT 2411893658 / Confirmed Eosinophilia / SNOMED CT 9876672516 / Confirmed Erectile dysfunction / SNOMED CT 0724748657 / Confirmed GERD (gastroesophageal reflux disease) / SNOMED CT 512656774 / Confirmed Hyperlipemia / SNOMED CT 08439182 / Confirmed Hypertension / SNOMED CT 3168496555 / Confirmed Incontinence of urine / SNOMED CT 1235757198 / Confirmed 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 Plan Transfer/ Discharge: Condition stable. Normal [facility] Comment on above: Result Comment: Elec tronically [...] # 30 tab(s), Refills(s) 6, Pharmacy: [facility] 1429, 183, cm, 04/21/22 11:40:00 [...] 0 Histories Past Medical History: Resolved Stroke ([id number]): Resolved. History of CVA (cerebrovascular accident) (9086737846): Resolved. History of DVT (deep vein thrombosis) (3645038276): Resolved. Family History: Diabetes mellitus Mother Sister Hypertension Mother Sister Father Diabetes mellitus type 2 Mother Hyperlipidemia Mother CAD - Coronary artery disease Father Mother Procedure history: Transrectal biopsy of prostate using ultrasound (US) guidance ([id number]) on 09/08/2020 at 64 Years. Colonoscopy (286063473) in 2011 at 55 Years. Arthroplasty of knee (21192631). Arthroscopy of shoulder (268255948). Insertion of catheter into spinal canal for infusion of therapeutic substance (5702631975). Lumbar discectomy (046767317). Comments: 06/25/2022 15:29 EDT - Lulu Peralta LPN L4-5 CE - Cataract extraction ([id number]). Social History Social & Psychosocial Habits Alcohol 06/25/2022 Use: Current Type: Beer Frequency: Daily Substance Abuse 06/25/2022 Risk Assessment: Denies Substance Abuse Tobacco 06/25/2022 Tobacco Use: Former smoker, quit more Smokeless tobacco use: Never (more content not included)... Normal [facility] Comment on above: Result Comment: Elec tronically Signed By: Scout Lamas Jr., DO\.br\Date and Time Signed: 07/06/22 14:09 EST Outside Radiologyon 07-05-20 Outside Radiology [id number] 0#1.00CD:127 [facility] Coding Summary.on 07-02-2022 Coding Summary. CD:[id number] Gh0bWw+PGhlYWQ+PE1FV FNpL60ojQTanK0GT0nFS H1ADLKEBNSXBI8HRH7js RN0KPwbN7OuiaTu KllklABiEM40SOc0WOH6 bDeiKGxstN6znNVtC3u0 SbUuNM42fW65FZvxTQGy YqO4XaHszszunCZm Z7dcMwZgrMStAmq+PHRh YmxlIHdpZHRoPScxMDAl PuRxnRkfIO2fZo9oVARz LWNvbGxhcHNlOiBj d1tdSUCrWImzKQ3jsSrb M1AxnRT2IOJrz7s8Zz16 dHI+QGFpMHR1aZfaVBlm j102DeFia6suYWY9 cUHaMEduOSY6L58ph2J5 LPTqMSZjHLK9nWM6tS3h iKkovilbI6FdqDEgGcC3 ASN1zOSwbF2wcBsx dtfduD9gVwr+E59IYL0Z ZTIJWE9BKkq9X5CuRqqi dHI+MD01YZTbEO24dYLw qTFrm0bwtIc7McJr ZEEjMAV5tTppPXfec5Rb NKDmO42jyIMcr2Y6IXLq qQmonOCeQjAjyVW7lQ1p MLyttyvrh1wxifdb Dkmai7yowa75xE77Q03o XOwmHGFhWEA6ZKLzSEBo vLastw8dhB5iYt7+IDxj b9dsb1tixXb0YyBg OVJwhsBieNklZAI5u7Lz Nh71U2OsqKxth2UhChk8 qb22mLLuq9W1tDR1NGrs PTIqpD5eWEkfNpX7 ZFIoPtCgrF04rNBfIUgf Dz0pvXmtaHmbRF0fPCHb rumkNNDrjN5oFAHbqOJd xJduFH7cUYBhamfs f638IcWpPDL7GVTztVEo K5IksX2cPmUbPHAoJSZu I5LnuOZdLBmlW956KWyn ZoH2PGFpyhWnM8Gh NKKhjCruOgF1w3V1Ud6J w8NzjjrjGLF3BLfzPIIq QaElOfWoHpR1V1GtPvc9 EEIvlKvyWD5xC8Oc ASGavxzbjybntCH0SZRr PVZvqS80qGSoZGpnTs9s y0N9t241GXNsFVSbnS73 Dd1cqUjlNAWykNWA iN8vdnehh9ifmxukYdLk MOJmIJm6VIo6AGMqvXmu JdYpMXW6RwU0RAU5sVKy tL2hdCpaozbfaG1i Oyc+K10wrQ1vPXH8YRA0 usxzPRMcciXnXP08ZG45 I3HiDnrawEEinRS+PGRp pdOmeVcaPX6rImPn i4pel1UhQSarP6FlDNEm QAeaLah2OZUhGDI4zJA9 hN6vYKMpLVggo2C6xYS1 K7MeufMhop2fu5om UALwZRcdY03gyQSxq8Z0 BLOwrIN1NELvcRnyFkTf mN55Xmh+UVNfpIlzi5Jv Dlhoi0chf7zczXm5 IjMwJSIgdmFsaWduPSJ0 g9HkBf92I14fINdiUNLv HPHyURZzOJUobLpzyl0y oG3ePm0+PGNvbCB3 pYH6kO9lXEObLvW8AGhi V539WoTosHFhHihcq9om n3quvHl9FoNpPABddqGj tVtuMEC4h7ImNm11 O07jKRshAPGiBEKmGGEv VFXuvYltde2oxO6cHr4+ RS6cf6cshy62kB57cAF+ LVPgSZV5nMirTEss YGZfxH8dFGmuNhE3KUId ClJnhF47jAKpSMddOc5r yLvpbLzzXP8dPDMkrpai q930QhGcz6cyLKDp nKLpVGvcGBT4F43zk6V3 WPJxHXBmGZL5pET7wU1e bGlnbjogbGVmdDsgdmVy vZczEGfmTTodL562 IHRvcDsnPlBhdGllbnQg PnByAZc8B5IrVti2BPCg fYkxFM5usTMsNZvsHx8m aRcljHolCQ9hPEPk vwylp346WzQac0anKUXl fFWoFGeoOKF1T47de7X0 AKUeRCWeZDL9zFF1bY2z bGlnbjogbGVmdDsg hhCqkDibNFvaSAtaO920 IHRvcDsnPkJpcnRoIERh kYO9OB78FC41mXIij2O9 oIM8H0VqQSUgrdlx igjcsAU7HBGnILTdpB48 Bj5ioBktHz0cCDPcVDZ5 NAUohXEyW1GzyO3nEhMn MROvJLYpE2NsxQOt TTckT434ZLhfGeS5FWDp eeLzC6TuGRPlqOmhYwQ5 e2T6Ck4HO1X7RR70WX48 qHZdt1R5mII9W0Na ASGaxvghmqhmeKM2EEMr XEHanX48Vd6tuQydUw0m ALXmXXS1DYZzeRJhE9Hx iO9mYvNoULXnAERr L0IlfEGjQBkpB850FHzt KcJ9SIPwbsKjK7GcURWz zRwtVrK3u0B8Cs6WIQw2 QG61WW83xWCiq0F0 wHB5P7FlAJHordtlyhzt iNF2EHFtOJHtuZ33Gc2s nDlvVv0gDTUpLZA5QHJz jAIjO5IrlQ1iVkOt DGKwJMLaS3WwrXXqTKje D309ARbfBkY1QTIvzfPr Y6ThHDQafXzvTzG2s6R7 Td8RMXQgSL32UED5 gGQ6XL04QJ75R0McIhvr dGFibGU+PHRhYmxlIHdp ZHRoPScxMDAlJyBzdHls HZ6cRi3xDNFeOJUo wZifbDRxXoOai0uqFAPi HDvkXZ9czHreJ2UwfSA0 NUZgf3h2Ys02K71iY1Xp dXA+FIFlzXR7fOO0 dM9oNlOuJiY4NDeuZ035 YpXdpRInZcqkp2blq0ft lFu9HwZ7BXPsxwNhcJry DZJ5a7QwZy77Q50s IHdpZHRoPSIxNSUiIHZh bBovrk9lbW7zCp4+PGNv zQX1oLZ6fV6mYsChIpV9 OGotX157LiJkmOTq Bqzwi0zxv8aimWk1ScOg VAFxjaNqjRxfKRG4l4Ry Ed48V5TocEckx1HrPfu9 vd33rSLrc1Y0lSK7 P0XzIYTaaunqhHIdbUdy MC5bLJEfexghEBAqaN4j XUAoT5e8RvTdRqV9ZOli P1VguvW7DRHgpRJl EPcbLEB5M65fz6V5SMKu FQSrREM1iLH9mA3hsTod bjogbGVmdDsgdmVydGlj PEaeSFfxH196TGBc iVguDCGuiM4qFHIsgOLh cHjfTN5bOKPxduxzEviG SURFTEJVUkcsIEpBTUVT TXF8H8WlQvi8GUAs rHmfAZ7jhXOvIWgqMy6u vPourOrgKE2sMRZaderw KGBblR3sXTWboYAtqTag SI8uIUAthfvwx234 IgWnGWT8JJUebDXpB4Ul pA1wVuMnFTGkEFJyP1Wk uMVaHOxxD754SAfgXaL8 ONAzwcMyF9KwMBDq fRnjVsK0c5B6Oz2aUr5z EY4fNGU5UE02PX82dKEn m7T0nNM6F9ZvJXIjtmmz rbadqKX5ORMuMFQi yF25hRNoHQarWz1tw6Q0 p383IVEdBUIdwA36Ix8a uIgiQFJvqPGGsR3tfbjn q0ydskmpFxMzSKYg DSz3EZv1VMPzmZziKqVa JZA7HhU3YRL4gWLlfB2m rLixsjundD5gMuj+NjYg JXHrtkG9W2OoTja4 AUMwdHeqZI2vjMOgBOqt Ca9yeRsxfVkdGC2jFKZf kyjkHNRgkM0kJUDsqCGt lThnJN4dGAKohdyd r396JaOoJCV5PDIgyYZv T3BbdE6rEfMeNAZfFFKi Q8KflDKkVQceQ872ODem HeO9LTMmdlFcE3Pd ETMgqFwlSvU2l8Z3Tu2B TMniDG58OF02bJQju6T5 xGA0B4CvKYBsyfyhlfbq fBH3KXUwPPAjcT18 lTBeXMypBk1am4G6v856 BZBvESVmgT92Tf7aqKhj GDNtjKDVcS1emvtvx9th cjogIzAwMDAwMDt0 CIc7APTsxWplPiSpYLN4 KgB9MRO8dBBkvP2wgMbt aopvuA5kPuk+UmVjdXJy lC0nMM09YQ66G4Jh PjwvdGFibGU+PHRhYmxl IHdpZHRoPScxMDAlJyBz jChuNM3tTh2aKMJwAJFj cShozBRiXnUjv5bq ZOHoCCtqQJ0fnImjB3Yo aYQ0WBFpy7h2Fp71D93v D0BfbGV+SNTdbLP6uZT7 nP0kPrBmXzQ7SZns E695XdBadEXkIbdyh1rr l3didBi1OsMyNWXqsyNt iLyhLTP1q7ZyGw46Z06v IHdpZHRoPSIyMCUi MXHgmDnrfs7sxA2pTf0+ HXQefWZ2sHS1eU5zWpWq EcK3TCvlS325TpGeiUDl CgkcX99uG6FbjWE+ QKYmRlm2ZGCeyHorSP0j aYPfUSsxDn8aDVK4ThSo DpYqFFdjL3LzCSWaoeir nsnfcXA8TWZrHTHc oQ37Tl2snItaMq3mWVUp DWD8JAXkvGQeX4BiaS9w CeNzHWVjQXKfY8SnbWGt NZckK112IRsyPlX8 OCXqfcOxD0YoTNFfbXas MeL1m9U2Xz1ZtQrawHHz RE2iLaCpBFz8F0BmTks0 QCUbuEgePR3auFWt FDfcIw9dfJxhjXkhEM6h MYKybxaes078OvSmt9oa GNRqbOHkGSsfGCU2G22l o6J0CAOoWWPeTHL7 nVA2sV9htMsjonyhtZIe dDsgdmVydGljYWwtYWxp S195STDctIhfUfITDjl5 D8NwDkk2YAMulYwe ZP0qpSUqHRjeGg1jeVsp mHqfWJ0mETHcqcyal129 IjMtd3yeJXJolSDfHZax BPU0U18id5H8CPZr NHWfPCG0aDC3iW4pxOuz bjogbGVmdDsgdmVydGlj UBubGGznA613SXAltWbc Eu8CEnb3V4HvVwj8 XLEurIudOQ1zwBKzXPht Ss2vdDpicYsuCV4kRWNg farvl711WaVyt5exYQGz oUZvMDwhXLG6X19u r7H9SXGcGQBlRFH3vHW2 iO9pcUboudpzbXYmjBgu diTxjGgtEUetYEyyB885 IHRvcDsnPlBheWVy OjwvdGQ+GH70vl32O8Mh GkfoPhf1MJEaHQS1oNB5 pK1qQZCgCMbzx7P8tQX9 O6MyllBagf1cx1uv YXBz (more content not included)... Normal [facility] Auto Diffon 06-30-2022 Basophils/100 WBC (Bld) 2.7 % High 0.0-2.0 [facility] Comment on above: Order Comment: Order Added by Discern Expert. Performed By: #### 2 198175, 64868026, 2875013, 6059964, 44246575 #### [facility] [address] [place] [address] Basophils/Leukocytes Auto (Bld) [Pure # fraction] 0.2 E9/L Normal 0.0-0.2 [facility] Comment on above: Order Comment: Order Added by Discern Expert. Performed By: #### 2 561394, 46549016, 0936217, 2300351, 32853494 #### [facility] [address] [place] [address] Eosinophils/100 WBC (Bld) 7.5 % Normal 0.0-8.0 [facility] Comment on above: Order Comment: Order Added by Discern Expert. Performed By: #### 2 333995, 54926013, 4724011, 2463713, 30513792 #### [facility] [address] [place] [address] Eosinophils/Leukocyte s Auto (Bld) [Pure # fraction] 0.5 E9/L Normal 0.0-0.5 [facility] Comment on above: Order Comment: Order Added by Discern Expert. Performed By: #### 2 204494, 60651435, 9497925, 3476866, 76864737 #### [facility] [address] [place] [address] Lymphocytes/100 WBC (Bld) 35.7 % Normal 14.0-50.0 [facility] Comment on above: Order Comment: Order Added by Discern Expert. Performed By: #### 2 081312, 55465516, 6983344, 1873397, 37537164 #### [facility] [address] [place] [address] Lymphocytes/Leukocyte s Auto (Bld) [Pure # fraction] 2.3 E9/L Normal 1.0-4.0 [facility] Comment on above: Order Comment: Order Added by Discern Expert. Performed By: #### 2 898472, 90435957, 7784820, 4286918, 09152284 #### [facility] [address] [place] [address] Monocytes/100 WBC (Bld) 7.0 % Normal 4.0-14.0 [facility] Comment on above: Order Comment: Order Added by Discern Expert. Performed By: #### 2 656200, 42450954, 1571767, 0785622, 97300631 #### [facility] [address] [place] [address] Monocytes/Leukocytes Auto (Bld) [Pure # fraction] 0.5 E9/L Normal 0.2-1.0 [facility] Comment on above: Order Comment: Order Added by Discern Expert. Performed By: #### 2 398595, 00767199, 0493935, 1514096, 15696404 #### [facility] [address] [place] [address] Neutrophils/100 WBC (Bld) 47.1 % Normal 36.0-75.0 [facility] Comment on above: Order Comment: Order Added by Discern Expert. Performed By: #### 2 409975, 51520958, 4789414, 7530938, 35121472 #### [facility] [address] [place] [address] Neutrophils/Leukocyte s Auto (Bld) [Pure # fraction] 3.1 E9/L Normal 2.0-7.5 [facility] Comment on above: Order Comment: Order Added by Discern Expert. Performed By: #### 2 178787, 86769222, 2488166, 8777921, 48198810 #### [facility] [address] [place] [address] BMPon 06-30-2022 Anion gap [Moles/Vol] 13 mmol/L Normal 6-16 [facility] Comment on above: Performed By: #### 2 318246, 17061104, 2650233, 0766139, 77984110 #### [facility] [address] [place] [address] Calcium [Mass/Vol] 9.4 mg/dL Normal 8.9-11.1 [facility] Comment on above: Performed By: #### 2 558675, 41465714, 0415041, 2349827, 38448112 #### [facility] [address] [place] [address] Chloride [Moles/Vol] 99 mmol/L Low 101-111 [facility] Comment on above: Performed By: #### 2 965435, 57447655, 0156692, 3966658, 69844467 #### [facility] [address] [place] [address] CO2 [Moles/Vol] 25 mmol/L Normal 21-31 [facility] Comment on above: Performed By: #### 2 414925, 02538632, 9301155, 4240036, 69428731 #### [facility] [address] [place] [address] Creatinine [Mass/Vol] 1.0 mg/dL Normal 0.5-1.3 [facility] Comment on above: Performed By: #### 2 636052, 75029949, 8162735, 9381008, 79346894 #### [facility] [address] [place] [address] Glucose [Mass/Vol] 241 mg/dL High 55-199 [facility] Comment on above: Result Comment: If t his glucose result represents a fasting glucose, interpretation should refer to the following reference range: 55-99 mg/dL Performed By: #### 2 736097, 45950842, 8236373, 8051646, 76477561 #### [facility] [address] [place] [address] Potassium [Moles/Vol] 3.7 mmol/L Normal 3.5-5.3 [facility] Comment on above: Performed By: #### 2 247887, 06460615, 9179669, 5989015, 86854147 #### [facility] [address] [place] [address] Sodium [Moles/Vol] 133 mmol/L Low 135-145 [facility] Comment on above: Performed By: #### 2 536674, 42695212, 1679706, 7147793, 30769759 #### [facility] [address] [place] [address] Urea nitrogen [Mass/Vol] 12 mg/dL Normal 5-21 [facility] Comment on above: Performed By: #### 2 005094, 85437207, 2985146, 2836920, 52073506 #### [facility] [address] [place] [address] Urea nitrogen/Creatinine [Mass ratio] 12 No Units Normal 10-20 [facility] Comment on above: Performed By: #### 2 886762, 26268983, 0549385, 0430956, 08268111 #### [facility] [address] [place] [address] CBC w/ Auto Diffon Erythrocyte distribution width (RBC) [Ratio] 14.0 % Normal 10.9-14.2 [facility] Comment on above: Performed By: #### 2 801571, 56063907, 6716640, 1448495, 21043491 #### [facility] [address] [place] [address] Hematocrit (Bld) [Volume fraction] 40.8 % Normal 37.7-49.0 [facility] Comment on above: Performed By: #### 2 444408, 97127085, 7457395, 6970067, 78215566 #### [facility] [address] [place] [address] Hemoglobin (Bld) [Mass/Vol] 13.9 g/dL Normal 13.5-17.5 [facility] Comment on above: Performed By: #### 2 763945, 88243886, 5283361, 7900708, 89578765 #### [facility] [address] [place] [address]68 MCH (RBC) [Entitic mass] 27.9 pg Normal 27.0-34.0 [facility] Comment on above: Performed By: #### 2 289716, 44192117, 4657577, 3466613, 48937553 #### [facility] [address] [place] [address] MCHC (RBC) [Mass/Vol] 34.1 g/dL Normal 31.4-36.0 [facility] Comment on above: Performed By: #### 2 612424, 26211842, 4444720, 6405819, 87852883 #### [facility] [address] [place] [address] MCV (RBC) [Entitic vol] 81.8 fL Normal 80.0-100.0 [facility] Comment on above: Performed By: #### 2 647334, 88175607, 9936709, 1511570, 05742544 #### [facility] [address] [place] [address]14 Platelet mean volume (Bld) [Entitic vol] 8.3 fL Normal 6.4-10.8 [facility] Comment on above: Performed By: #### 2 799228, 04664975, 8849154, 4857967, 82951837 #### [facility] [address] [place] [address] Platelets (Bld) [#/Vol] 191.0 E9/L Normal 150.0-500.0 [facility] Comment on above: Performed By: #### 2 342077, 46568458, 5826827, 7142267, 02597138 #### [facility] [address] [place] [address] RBC (Bld) [#/Vol] 5.0 E12/L Normal 4.3-5.9 [facility] Comment on above: Performed By: #### 2 458151, 05744557, 7967015, 0208539, 20958869 #### [facility] [address] [place] [address] WBC corrected for nucl RBC Auto (Bld) [#/Vol] 6.5 E9/L Normal 4.0-11.0 [facility] Comment on above: Performed By: #### 2 428085, 21412595, 6023898, 0126571, 64006359 #### [facility] [address] [place] [address] CHEMISTRYOrdered By: SYSTEM SYSTEM on 06-30-2022 Anion gap [Moles/Vol] 13 mmol/L Normal 6 - 16 mEq/L [facility] Remisol Calcium [Mass/Vol] 9.4 mg/dL Normal 8.9 - 11. 1 mg/dL [facility] Chloride [Moles/Vol] 99 mmol/L Low 101 - 1 11 mmol/L [facility] CO2 [Moles/Vol] 25 mmol/L Normal 21 - 31 mmol/L [facility] Creatinine [Mass/Vol] 1.0 mg/dL Normal 0.5 - 1.3 mg/dL [facility] GFR/1.73 sq M.predicted among blacks MDRD (S/P/Bld) [Vol rate/Area] mL/min/1.73 m2 Normal >=59mL/min/1.7 3 m2 [facility] [place] Chem S GFR/1.73 sq M.predicted among non-blacks MDRD (S/P/Bld) [Vol rate/Area] mL/min/1.73 m2 Normal >=59mL/min/1.7 3 m2 [facility] [place] Chem S Glucose [...] for Treatmenton Consent for Treatment [id number] 21 [id number] #1.00CD:127 Normal [facility] Consent for Treatment [id number] 11 [id number] 7#1.00CD:127 Normal [facility] HEMATOLOGYOrdered By: SYSTEM SYSTEM on 06-30-2022 Basophils/100 [...] Coag (PPP) [Time] 33.6 second(s) Normal 25.1-36.5 [facility] Comment on above: Result Comment: Para meter [...] the same coagulation reagent and instrumentation as [facility] [place] [place]. Currently there are no coagulation studies available worldwide for children to 14 days, and no normal ranges. Heparin therapeutic range (represented by Anti-Factor Xa activity of 0.2 - 0.4 U/mL) corresponds to PTT of 56.6 - 109.0 sec. Performed By: #### 2 965432, 11886471, 5566684, 4234137, 47095633 #### [facility] [address] [place] [address] INR Coag (PPP) [Relative time] 1.1 {INR} Invalid Interpretation Code [facility] Comment on above: Result Comment: INR results are specifically intended to assess patients stabilized on long-term Anticoagulation therapy suggested INR?s ?Less Intensive Anticoagulation? 2.0 ? 3.0 Conventional Range 3.0 ? 4.5 Performed By: #### 2 272147, 79741313, 9655948, 6871650, 89440215 #### [facility] [address] [place] [address] PT Coag (PPP) [Time] 11.8 second(s) Normal 9.4-12.5 [facility] Comment on above: Result Comment: 15 d [...] the same coagulation reagent and instrumentation as [facility] [place]. Currently there are no coagulation studies available worldwide for children to 14 days, and no normal ranges. Performed By: #### 2 007493, 62930272, 4061918, 9499047, 54255154 #### [facility] [address] [place] [address] UA With Cult Reflexon 2021 Bilirubin Ql (U) Negative Normal Negative [facility] Comment on above: Performed By: #### 1 1112548 ####[facility] [address] [place] [address] Clarity (U) CLEAR Normal Clear [facility] Comment on above: Performed By: #### 1 3004995 ####[address] [address] Color (U) YELLOW Normal Yellow [facility] Comment on above: Performed By: #### 1 7048140 ####[address] [address] Epithelial cells.squamous LM.HPF (Urine sed) [#/Area] 0-2 Normal 0-2 [facility] Comment on above: Performed By: #### 1 4272712 ####[facility] [address] [place] [address] Glucose Test strip (U) [Mass/Vol] 1+ Abnormal Negative [facility] Comment on above: Performed By: #### 1 4691804 ####[facility] [address] [place] [address] Hemoglobin Ql (U) TRACE Abnormal Negative [facility] Comment on above: Performed By: #### 1 3892469 ####[facility] [address] [place] [address] Ketones (U) [Mass/Vol] Negative Normal Negative [facility] Comment on above: Performed By: #### 1 6724268 ####[facility] [address] [place] [address] [place].plasma/Lith[place] m.RBC (Bld) [Mass ratio] 4-20 Normal 0-3 [facility] Comment on above: Performed By: #### 1 1034030 ####[address] [address] Nitrite Ql (U) Negative Normal Negative [facility] Comment on above: Performed By: #### 1 9963176 ####[address] [address] pH (U) 5.5 [pH] Invalid Interpretation Code 5.0-9.0 [facility] Comment on above: Performed By: #### 1 [id number] ####[address] [address] Protein (U) [Mass/Vol] Negative Normal Negative [facility] Comment on above: Performed By: #### 1 [id number] ####[address] [address] Specific gravity (U) [Rel density] 1.025 Invalid Interpretation Code 1.005-1.030 [facility] Comment on above: Performed By: #### 1 [id number] ####[address] [address] Type of Urine collection method Clean Catch Normal [facility] Comment on above: Performed By: #### 1 [id number] ####[address] [address] Urobilinogen Qn (U) 0.2 {Shaka'U}/dL Normal 0.0-1.0 [facility] Comment on above: Performed By: #### 1 [id number] ####[address] [address] WBC Auto Ql (U) Negative Normal Negative [facility] Comment on above: Performed By: #### 1 [id number] ####[address] [address] WBC LM.HPF (Urine sed) [#/Area] 0-5 Normal 0-5 [facility] Comment on above: Performed By: #### 1 [id number] ####[address] [place] [address] URINALYSISOrdered By: Duglas Khalil on 06-30-2022 Bilirubin [...] PM) Normal Negative [facility] UA Auto SS [place].plasma/Lithiu m.RBC (Bld) [Mass ratio] 4-20 /HPF Normal [...] [facility] UA Auto SS Urobilinogen Qn (U) 0.5159427 {Shaka'U}/dL Normal 0.0 - 1.0 EU/dL [facility] [...] V. Transcribed by: LISANDRO Technologist: VINNY Hooper [facility] eGFRon 06-30-2022 GFR/1.73 sq M.predicted among blacks MDRD (S/P/Bld) [Vol rate/Area] mL/min/{1.73_m2} Normal >=59 [facility] Comment on above: Order Comment: Order added by Discern Expert. Result Comment: eGFR is race adjusted. AA=. Performed By: #### 2 [id number], [id number], [id number] ####[facility] [address] [place] [address] GFR/1.73 sq M.predicted among non-blacks MDRD (S/P/Bld) [Vol rate/Area] mL/min/{1.73_m2} Normal >=59 [facility] Comment on above: Order Comment: Order added by Discern Expert. Result Comment: [employer] anderson kidney disease could be indicated at eGFR's of less than 60 mL/min/1.73m2. Kidney failure is indicated at less than 15 mL/min/1.73m2. Performed By: #### 2 [id number], [id number], [id number], [id number] ####[facility] [address] [place] [address] COVID-19 ([facility] [place]on 06-29-2022 Performing Instrument Willie 2 Normal [facility] Comment on above: Performed By: #### 2 [id number] ####[address] [place] [address] SARS-CoV-2 (COVID-19) RNA NISHANT+probe Ql (Resp) Not detected Normal Not Detected [facility] Comment on above: Result Comment: This test result should be correlated with clinical presentations and medical history by a healthcare provider to determine its clinical significance. This assay was performed by a reverse transcriptase real-time polymerase chain reaction (rt PCR) method on the Mosaic system. This test has been authorized only [...] or revoked sooner. Performed By: #### 2 [id number] ####[address] [address] SARS-CoV-2 (COVID-19) RNA NISHANT+probe Ql (Unsp spec) Pass Normal Pass [facility] Comment on above: Performed By: #### 2 [id number] ####[address] [address] Specimen source Nom (Unsp spec) Nasal Normal [facility] Comment on above: Performed By: #### 2 [id number] ####[address] [address] Facesheeton 06-29-2022 Facesheet [id number] #1.00CD:127 Normal [facility] COVID-19 ([facility])on 06-28-2022 ADMITTED TO INTENSIVE CARE UNIT FOR CONDITION OF INTEREST:FIND:PT: NO Normal [facility] Comment on above: Performed By: #### 2 [id number] ####[place] [address] EMPLOYED IN A HEALTHCARE SETTING:FIND:PT: Unknown Normal [facility] Comment on above: Performed By: #### 2 [id number] ####[place] [address] FIRST TEST FOR CONDITION OF INTEREST:FIND:PT: Unknown Normal [facility] Comment on above: Performed By: #### 2 [id number] ####[place] [address] HAS SYMPTOMS RELATED TO CONDITION OF INTEREST:FIND:PT: Unknown Normal [facility] Comment on above: Performed By: #### 2 [id number] ####[place] [address] HOSPITALIZED FOR CONDITION OF INTEREST:FIND:PT: NO Normal [facility] Comment on above: Performed By: #### 2 [id number] ####[place] [address] STATUS:FIND:PT: NO Normal [facility] Comment on above: Performed By: #### 2 [id number] ####[place] [address] RESIDES IN A [facility] SETTING:FIND:PT: Unknown Normal [facility] Comment on above: Performed By: #### 2 [id number] ####[place] [address] Consent for Procedure/Surger yon 06-28-2022 Consent for Procedure/Surgery [id number] #1.00CD:127 Normal [facility] RAD - MISCon 06-24-2022 RAD - MISC [id number] #1.00CD:127 Normal [facility] XR ABD FLAT_UPon 06-15-2022 XR ABD FLAT_UP [...] SUELLEN MAYO Date: 2022-06-15 17:03 Normal [facility] CBC AUTO DIFFon 06-07-2022 BASO # 0.1 103/ul Normal 0.0-0.1 [facility] Comment on above: Performed By: #### P TT, PT #### [facility] [address] [place] [address] Dr. Marcell Luque Basophils/100 WBC (Bld) 0.6 % Normal 0.2-2.0 [facility] Comment on above: Performed By: #### P TT, PT #### [facility] [address] [address] [address] Marcell Luque EO # 0.3 103/ul Normal 0.0-0.7 [facility] Comment on above: Performed By: #### P TT, PT #### [facility] [address] [place] [address] Dr. Marcell Luque Eosinophils/100 WBC (Bld) 3.3 % Normal 0.9-7.0 [facility] Comment on above: Performed By: #### P TT, PT #### [facility] [address] [address] [address] Marcell Luque Erythrocyte distribution width (RBC) [Ratio] 13.9 % Normal 11.0-15.0 [facility] Comment on above: Performed By: #### P TT, PT #### [facility] [address] [place] [address] Dr. Marcell Luque Hematocrit (Bld) [Volume fraction] 39.3 % Critically low 42.0-54.0 [facility] Comment on above: Performed By: #### P TT, PT #### [facility] [address] [place] [address] Dr. Marcell Luque Hemoglobin (Bld) [Mass/Vol] 12.6 g/dL Critically low 14.0-18.0 [facility] Comment on above: Performed By: #### P TT, PT #### [facility] [address] [place] [address] Dr. Marcell Luque IG # 0.02 10e3/ul Normal 0.00-0.03 [facility] Comment on above: Performed By: #### P TT, PT #### [facility] [address] [place] [address] Dr. Marcell Luque IG % 0.2 % Normal 0.0-0.5 [facility] Comment on above: Performed By: #### P TT, PT #### [facility] [address] [place] [address] Dr. Marcell Luque LYMPH # 2.4 103/ul Normal 1.2-3.8 [facility] Comment on above: Performed By: #### P TT, PT #### [facility] [address] [place] [address] Dr. Marcell Luque Lymphocytes/100 WBC (Bld) 29.6 % Normal 20.5-60.0 [facility] Comment on above: Performed By: #### P TT, PT #### [facility] [address] [place] [address] Dr. Marcell Luque MANUAL DIFF REQ NO Normal [facility] Comment on above: Performed By: #### P TT, PT #### [facility] [address] [place] [address] Dr. Marcell Luque MCH (RBC) [Entitic mass] 27.9 pg Normal 25.9-34.0 [facility] Comment on above: Performed By: #### P TT, PT #### [facility] [address] [place] [address] Dr. Marcell Luque MCHC (RBC) [Mass/Vol] 32.1 g/dL Normal 29.9-35.2 [facility] Comment on above: Performed By: #### P TT, PT #### [facility] [address] [place] [address] Dr. Marcell Luque MCV (RBC) [Entitic vol] 87.1 fL Normal 80.0-94.0 [facility] Comment on above: Performed By: #### P TT, PT #### [facility] [address] [place] [address] Dr. Marcell Luque MONO # 0.9 103/ul Critically high 0.3-0.8 [facility] Comment on above: Performed By: #### P TT, PT #### [facility] [address] [place] [address] Dr. Marcell Luque Monocytes/100 WBC (Bld) 10.7 % Normal 1.7-12.0 [facility] Comment on above: Performed By: #### P TT, PT #### [facility] [address] [place] [address] Dr. Marcell Luque NEUT # 4.5 103/ul Normal 1.4-6.5 [facility] Comment on above: Performed By: #### P TT, PT #### [facility] [address] [place] [address] Dr. Marcell Luque Neutrophils/100 WBC (Bld) 55.6 % Normal 43.0-75.0 [facility] Comment on above: Performed By: #### P TT, PT #### [facility] [address] [place] [address] Dr. Marcell Luque Platelet mean volume (Bld) [Entitic vol] 10.7 fL Normal 9.5-13.5 [facility] Comment on above: Performed By: #### P TT, PT #### [facility] [address] [place] [address] Dr. Marcell Luque PLT 155 103/ul Normal 150-450 [facility] Comment on above: Performed By: #### P TT, PT #### [facility] [address] [place] [address] Dr. Marcell Luque RBC 4.51 106/ul Critically low 4.70-6.10 [facility] Comment on above: Performed By: #### P TT, PT #### [facility] [address] [place] [address] Dr. Marcell Luque WBC 8.1 103/ul Normal 4.0-11.0 [facility] Comment on above: Performed By: #### P TT, PT #### [facility] [address] [place] [address] Dr. Marcell Luque [facility]on 05-22 SARS-CoV-2 (COVID-19) RNA NISHANT+probe Ql (Unsp spec) Not detected Normal NOT DETECTED [facility] Comment on above: Result Comment: When diagnostic [...] for this test is supported by the District Medical Examiner of Health and Human Service's declaration that [...] Performed By: #### P TT, PT #### [facility] [address] [place] [address] Dr. Marcell Luque LACTATE/LACTIC ACIDon 2021 Lactate [Moles/Vol] 1.4 mmol/L Normal 0.4-1.9 [facility] Comment on above: Performed By: #### L ACT #### [facility] [address] [place] [address] Dr. Marcell Luque PROF CHEM 8 (BAS METB)on Anion gap [Moles/Vol] 8.7 mmol/L Normal [facility] Comment on above: Performed By: #### B MP #### [facility] [address] [place] [address] Dr. Marcell Luque Calcium [Mass/Vol] 8.7 mg/dL Normal 8.5-10.1 [facility] Comment on above: Performed By: #### B MP #### [facility] [address] [address] [address] Marcell Luque Chloride [Moles/Vol] 101 mmol/L Normal 98-107 [facility] Comment on above: Performed By: #### B MP #### [facility] [address] [address] [address] Marcell Luque CO2 [Moles/Vol] 29.8 mmol/L Normal 21.0-32.0 [facility] Comment on above: Performed By: #### B MP #### [facility] [address] [place] [address] Dr. Marcell Luque Creatinine [Mass/Vol] 1.12 mg/dL Normal 0.70-1.30 [facility] Comment on above: Performed By: #### B MP #### [facility] [address] [address] [address] Marcell Luque EGFR-AF MALAYSIAN >60 Normal >=60 [facility] Comment on above: Performed By: #### B MP #### [facility] [address] [place] [address] Dr. Marcell Luque EGFR-NON AF MALAYSIAN >60 Normal >=60 [facility] Comment on above: Performed By: #### B MP #### [facility] [address] [address] [address] Marcell Luque Glucose [Mass/Vol] 173 mg/dL Critically high 74-106 [facility] Comment on above: Performed By: #### B MP #### [facility] [address] [address] [address] Marcell Luque Potassium [Moles/Vol] 3.5 mmol/L Normal 3.5-5.1 [facility] Comment on above: Performed By: #### B MP #### [facility] [address] [place] [address] Dr. Marcell Luque Sodium [Moles/Vol] 136 mmol/L Normal 136-145 [facility] Comment on above: Performed By: #### B MP #### [facility] [address] [place], [place] [address] Dr. Marcell Luque Urea nitrogen [Mass/Vol] 18.0 mg/dL Normal 7.0-18.0 [facility] Comment on above: Performed By: #### B MP #### [facility] [address] [place], [place] [address] Dr. Marcell Luque Urea nitrogen/Creatinine [Mass ratio] 16.1 mg/mg Normal [facility] Comment on above: Performed By: #### B MP #### [facility] [address] [address] [address] Marcell Luque TROPONIN, HIGH SENSITIVITYon 06-07-2022 HSTROP 84.7 pg/mL Critically high 4.0-76.1 [facility] Comment on above: Result Comment: CUT- OFF POINTS HAVE BEEN ESTABLISHED BASED ON THE FOURTH UNIVERSAL DEFINITIONS OF MYOCARDIAL INFARCTION. THE UPPER REFERENCE LIMIT (URL) OF TROPONIN, DEFINED THE 99TH PERCENTILE OF cTnI DISTRIBUTION IN A REFERENCE POPULATION, HAS BEEN CONFIRMED THE DECISION THRESHOLD FOR DE DIAGNOSIS. Performed By: #### P TT, PT #### [facility] [address] [address] [address] Marcell Luque XR CHEST 1 Von [...] by: VALERIE ERWIN Date: 2022-06-06 22:17 Normal [facility] AMMONIAon 06-06-2022 Ammonia (P) [Moles/Vol] 13 umol/L Normal 11-32 [facility] Comment on above: Performed By: #### A MM #### [facility] [address] [place] [address] Dr. Marcell Luque CBC AUTO DIFFon 06-06-2022 BASO # 0.1 103/ul Normal 0.0-0.1 [facility] Comment on above: Performed By: #### P TT, PT #### [facility] [address] [place] [address] Dr. Marcell Luque Basophils/100 WBC (Bld) 0.7 % Normal 0.2-2.0 [facility] Comment on above: Performed By: #### P TT, PT #### [facility] [address] [place] [address] Dr. Marcell Luque EO # 0.3 103/ul Normal 0.0-0.7 [facility] Comment on above: Performed By: #### P TT, PT #### [facility] [address] [place] [address] Dr. Marcell Luque Eosinophils/100 WBC (Bld) 4.0 % Normal 0.9-7.0 [facility] Comment on above: Performed By: #### P TT, PT #### [facility] [address] [place] [address] Dr. Marcell Luque Erythrocyte distribution width (RBC) [Ratio] 13.8 % Normal 11.0-15.0 [facility] Comment on above: Performed By: #### P TT, PT #### [facility] [address] [place] [address] Dr. Marcell Luque Hematocrit (Bld) [Volume fraction] 44.4 % Normal 42.0-54.0 [facility] Comment on above: Performed By: #### P TT, PT #### [facility] [address] [place] [address] Dr. Marcell Luque Hemoglobin (Bld) [Mass/Vol] 14.4 g/dL Normal 14.0-18.0 [facility] Comment on above: Performed By: #### P TT, PT #### [facility] [address] [place] [address] Dr. Marcell Luque IG # 0.02 10e3/ul Normal 0.00-0.03 [facility] Comment on above: Performed By: #### P TT, PT #### [facility] [address] [address] [address] Marcell Luque IG % 0.2 % Normal 0.0-0.5 [facility] Comment on above: Performed By: #### P TT, PT #### [facility] [address] [address] [address] Marcell Luque LYMPH # 2.9 103/ul Normal 1.2-3.8 [facility] Comment on above: Performed By: #### P TT, PT #### [facility] [address] [address] [address] Marcell Luque Lymphocytes/100 WBC (Bld) 35.4 % Normal 20.5-60.0 [facility] Comment on above: Performed By: #### P TT, PT #### [facility] [address] [address] [address] Marcell Luque MANUAL DIFF REQ NO Normal [facility] Comment on above: Performed By: #### P TT, PT #### [facility] [address] [address] [address] Marcell Luque MCH (RBC) [Entitic mass] 28.1 pg Normal 25.9-34.0 [facility] Comment on above: Performed By: #### P TT, PT #### [facility] [address] [address] [address] Marcell Luque MCHC (RBC) [Mass/Vol] 32.4 g/dL Normal 29.9-35.2 [facility] Comment on above: Performed By: #### P TT, PT #### [facility] [address] [address] [address] Marcell Luque MCV (RBC) [Entitic vol] 86.7 fL Normal 80.0-94.0 [facility] Comment on above: Performed By: #### P TT, PT #### [facility] [address] [address] [address] Marcell Luque MONO # 0.7 103/ul Normal 0.3-0.8 [facility] Comment on above: Performed By: #### P TT, PT #### [facility] [address] [place] [address] Dr. Marcell Luque Monocytes/100 WBC (Bld) 8.2 % Normal 1.7-12.0 [facility] Comment on above: Performed By: #### P TT, PT #### [facility] [address] [place] [address] Dr. Marcell Luque NEUT # 4.2 103/ul Normal 1.4-6.5 [facility] Comment on above: Performed By: #### P TT, PT #### [facility] [address] [place] [address] Dr. Marcell Luque Neutrophils/100 WBC (Bld) 51.5 % Normal 43.0-75.0 [facility] Comment on above: Performed By: #### P TT, PT #### [facility] [address] [place] [address] Dr. Marcell Luque Platelet mean volume (Bld) [Entitic vol] 11.0 fL Normal 9.5-13.5 [facility] Comment on above: Performed By: #### P TT, PT #### [facility] [address] [place] [address] Dr. Marcell Luque PLT 183 103/ul Normal 150-450 [facility] Comment on above: Performed By: #### P TT, PT #### [facility] [address] [place] [address] Dr. Marcell Luque RBC 5.12 106/ul Normal 4.70-6.10 [facility] Comment on above: Performed By: #### P TT, PT #### [facility] [address] [place] [address] Dr. Marcell Luque WBC 8.2 103/ul Normal 4.0-11.0 [facility] Comment on above: Performed By: #### P TT, PT #### [facility] [address] [place] [address] HEAD WO CONon [...] CURTIS WILSON Date: 2022-06-06 21:56 Normal [facility] CULTURE BLOODon 06-06-2022 Microscopic examination of blood, culture Culture Observations: NO GROWTH AT 5 DAYS. Normal [facility] Comment on above: Performed By: #### P TT, PT #### [facility] [address] [place] [address] Dr. Marcell Luque Microscopic examination of blood, culture Culture Observations: NO GROWTH AT 5 DAYS. Normal [facility] Comment on above: Performed By: #### P TT, PT #### [facility] [address] [place] [address] Dr. Marcell Luque ETHANOL (BLD ALC)on 06-06-20 22 ALC NOTE NOTE: 80 mg/dl is the legal limit for a blood alcohol level Normal [facility] Comment on above: Performed By: #### P TT, PT #### [facility] [address] [place] [address] Dr. Marcell Luque Ethanol [Mass/Vol] mg/dL Normal [facility] Comment on above: Performed By: #### P TT, PT #### [facility] [address] [place] [address] Dr. Marcell Luque LACTATE/LACTIC ACIDon 2021 Lactate [Moles/Vol] 2.9 mmol/L Critically high 0.4-1.9 [facility] Comment on above: Performed By: #### P TT, PT #### [facility] [address] [place] [address] Dr. Marcell Luque PROF 14(COMP METB)on 022 Albumin [Mass/Vol] 4.3 g/dL Normal 3.4-5.0 [facility] Comment on above: Performed By: #### P TT, PT #### [facility] [address] [place] [address] Dr. Marcell Luque Albumin/Globulin [Mass ratio] 1.1 {ratio} Normal [facility] Comment on above: Performed By: #### P TT, PT #### [facility] [address] [place] [address] Dr. Marcell Luque ALP [Catalytic activity/Vol] 91 U/L Normal 46-116 [facility] Comment on above: Performed By: #### P TT, PT #### [facility] [address] [place] [address] Dr. Marcell Luque ALT [Catalytic activity/Vol] 35 U/L Normal 16-63 [facility] Comment on above: Performed By: #### P TT, PT #### [facility] [address] [address] [address] Marcell Luque Anion gap [Moles/Vol] 11.7 mmol/L Normal [facility] Comment on above: Performed By: #### P TT, PT #### [facility] [address] [address] [address] Marcell Luque AST [Catalytic activity/Vol] 15 U/L Normal 15-37 [facility] Comment on above: Performed By: #### P TT, PT #### [facility] [address] [place] [address] Dr. Marcell Luque Bilirubin [Mass/Vol] 0.4 mg/dL Normal 0.2-1.0 [facility] Comment on above: Performed By: #### P TT, PT #### [facility] [address] [place] [address] Dr. Marcell Luque Calcium [Mass/Vol] 9.8 mg/dL Normal 8.5-10.1 [facility] Comment on above: Performed By: #### P TT, PT #### [facility] [address] [address] [address] Marcell Luque Chloride [Moles/Vol] 97 mmol/L Critically low 98-107 [facility] Comment on above: Performed By: #### P TT, PT #### [facility] [address] [place] [address] Dr. Marcell Luque CO2 [Moles/Vol] 30.8 mmol/L Normal 21.0-32.0 [facility] Comment on above: Performed By: #### P TT, PT #### [facility] [address] [place] [address] Dr. Marcell Luque Creatinine [Mass/Vol] 1.45 mg/dL Critically high 0.70-1.30 [facility] Comment on above: Performed By: #### P TT, PT #### [facility] [address] [place] [address] Dr. Marcell Luque EGFR-AF MALAYSIAN 59 mL/min/1.73m2 Critically low >=60 [facility] Comment on above: Performed By: #### P TT, PT #### [facility] [address] [address] [address] Marcell Luque EGFR-NON AF MALAYSIAN 49 mL/min/1.73m2 Critically low >=60 [facility] Comment on above: Performed By: #### P TT, PT #### [facility] [address] [address] [address] Marcell Luque Globulin (S) [Mass/Vol] 3.9 g/dL Normal [facility] Comment on above: Performed By: #### P TT, PT #### [facility] [address] [address] [address] Marcell Luque Glucose [Mass/Vol] 204 mg/dL Critically high 74-106 [facility] [place] Comment on above: Performed By: #### P TT, PT #### [facility] [address] [address] [address] Marcell Luque Potassium [Moles/Vol] 3.5 mmol/L Normal 3.5-5.1 [facility] Comment on above: Performed By: #### P TT, PT #### [facility] [address] [address] [address] Marcell Luque Protein [Mass/Vol] 8.2 g/dL Normal 6.4-8.2 [facility] Comment on above: Performed By: #### P TT, PT #### [facility] [address] [address] [address] Marcell Luque Sodium [Moles/Vol] 136 mmol/L Normal 136-145 [facility] Comment on above: Performed By: #### P TT, PT #### [facility] [address] [address] [address] Marcell Luque Urea nitrogen [Mass/Vol] 20.0 mg/dL Critically high 7.0-18.0 [facility] Comment on above: Performed By: #### P TT, PT #### [facility] [address] [address] [address] Marcell Luque Urea nitrogen/Creatinine [Mass ratio] 13.8 mg/mg Normal [facility] Comment on above: Performed By: #### P TT, PT #### [facility] [address] [place] [address] Dr. Marcell Luque PROTIMEon 06-06-2022 INR Coag (PPP) [Relative time] 1.02 {INR} Normal [facility] Comment on above: Performed By: #### P TT, PT #### [facility] [address] [place] [address] Dr. Marcell Luque INR GUIDELINES SEE BELOW Normal [facility] Comment on above: Result Comment: DANICA RED INR: 2.0 - 3.0 CONDITIONS NOT LISTED BELOW 2.5 - 3.5 FOR PROSTHETIC HEART VALVE REPLACEMENT 2.5 - 3.5 RECURRENT THROMBOSIS Performed By: #### P TT, PT #### [facility] [address] [place] [address] Dr. Marcell Luque PT Coag (PPP) [Time] 11.0 s Normal 9.0-11.6 [facility] Comment on above: Performed By: #### P TT, PT #### [facility] [address] [place] [address] Dr. Marcell Luque PTTon 06-06-2022 aPTT Coag (Bld) [Time] 25.9 s Normal 22.3-36.2 [facility] Comment on above: Performed By: #### P TT, PT #### [facility] [address] [place] [address] Dr. Marcell Luque TROPONIN, HIGH SENSITIVITYon 06-06-2022 HSTROP 92.4 pg/mL Critically high 4.0-76.1 [facility] Comment on above: Result Comment: CUT- OFF POINTS HAVE BEEN ESTABLISHED BASED ON THE FOURTH UNIVERSAL DEFINITIONS OF MYOCARDIAL INFARCTION. THE UPPER REFERENCE LIMIT (URL) OF TROPONIN, DEFINED THE 99TH PERCENTILE OF cTnI DISTRIBUTION IN A REFERENCE POPULATION, HAS BEEN CONFIRMED THE DECISION THRESHOLD FOR DE DIAGNOSIS. Performed By: #### P TT, PT #### [facility] [address] [place] [address] Dr. Marcell Luque Physician Referralon 022 Physician Referral [id number] #1.00CD:127 [facility] Ambulatory Visit Summaryon 1 Ambulatory Visit Summary EUNICE MARTE :1955 Visit Date:06/02/2022 Ambulatory Visit Instructions Your Diagnosis Elevated PSA BPH with urinary obstruction Erectile dysfunction Tests Performed Urnls Dip Stick Auto w/o Microscopy POC [id number] Your Care Team Attending Physician - Dewey [...] MD, Asim Singleton Where: [facility] Patient Educationon 06-02-20 22 Patient Education Urology [...] these instructions at home: Medicines ? Take [id number] and prescription medicines only as told by [...] of your (more content not included)... Normal [facility] Provider Letteron 06-02-2022 Provider Letter June 02, 2022 EUNICE MARTE [address] [place] [address] EUNICE MARTE 1955 To Whom It May Concern, Please excuse above patient from work. Date of Appointment: From: 06/02/2022 To: 06/02/2022 May Return to Work On:06/02/2022 Restrictions: none Comments: Shayy was with her Eunice for his appointment at our office today, any questions please call our office Sincerely, [facility] [address], [place] [address] Normal [facility] RAD - MRI Reporton RAD - MRI Report [id number] #1.00CD:127 Normal [facility] Urology Office/Clinic Noteon 06-02-2022 Urology Office/Clinic Note Chief Complaint Patient in office for f/u to MRI of the prostate HPI Staff Patient in office for f/u to MRI of the Prostate done on 05/26/22 @ [facility] [place]. MRI shows a focal [...] Information Dewey COTTO, Milvia Lucia, URL, URO [address], [place] [address]- [phone] Additional Instructions: Patient Education Erectile Dysfunction I, [...] 6 refi (more content not included)... Normal [facility] Comment on above: Result Comment: Elec tronically Signed By: Milvia Palomo MD\.br\Date and Time Signed: 06/02/22 12:00 EDT\.br\Electronically Co-Signed By: Paty Maher MA\.br\Date and Time Co-Signed: 06/02/22 10:08 EDT Creatinine (Bld) [Mass/Vol]O rdered By: Milvia Palomo on 05-26-2022 Creatinine [Mass/Vol] 0.8 mg/dL 0.6-1.3 [facility] Comment on above: ER/ESD physician is notified/shown all ISTAT results.Critical values may be confirmed by laboratory testing ifdeemed necessary by ER attending doctor. No Panel InformationOrdered By: Milvia Palomo on 05-26-2022 POC Estimated GFR > 60 [facility] Comment on above: GFR estimated refere nce range: According to KDOQI guidelines, <60 ml/min/1.73m2 is sufficient to diagnose a patient with chronic kidney disease. POC Estimated GFR Non- Amer > 60 [facility] Screenson 04-29-2022 Screens [id number]#1.00CD:127 Normal [facility] Screens [id number] #1.00CD:127 Normal [facility] Patient Educationon 04-21-20 Patient Education Oncology Prostate [...] of these risk factors: ? Being of -[place] descent. ? Having a family history of [...] Are older than age 55. ? Are -[place]. ? Have a father, brother, or uncle [...] 05/19/2018 Document R (more content not included)... [facility] Provider Letteron 04-21-2022 Provider Letter April 21, 2022 EUNICE MARTE [address] [place] [address] EUNICE MARTE 1955 To Whom It May Concern, Please excuse above patient from work. 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 Normal [facility] Comment on above: Result Comment: Elec tronically Signed By: Milvia Palomo MD\.br\Date and Time Signed: 04/21/22 17:24 EDT\.br\Electronically Co-Signed By: Lamar Lowry\.br\Date and Time Co-Signed: 04/21/22 12:13 EDT CBC AUTO DIFFon 01-26-2022 BASO # 0.1 103/ul Normal 0.0-0.1 [facility] Comment on above: Performed By: #### P TT, PT #### [facility] [address] [place] [address] Dr. Marcell Luque Basophils/100 WBC (Bld) 1.1 % Normal 0.2-2.0 [facility] Comment on above: Performed By: #### P TT, PT #### [facility] [address] [place] [address] Dr. Marcell Luque EO # 0.3 103/ul Normal 0.0-0.7 [facility] Comment on above: Performed By: #### P TT, PT #### [facility] [address] [place] [address] Dr. Marcell Luque Eosinophils/100 WBC (Bld) 5.0 % Normal 0.9-7.0 [facility] Comment on above: Performed By: #### P TT, PT #### [facility] [address] [place] [address] Dr. Marcell Luque Erythrocyte distribution width (RBC) [Ratio] 13.0 % Normal 11.0-15.0 [facility] Comment on above: Performed By: #### P TT, PT #### [facility] [address] [place] [address] Dr. Marcell Luque Hematocrit (Bld) [Volume fraction] 44.3 % Normal 42.0-54.0 [facility] Comment on above: Performed By: #### P TT, PT #### [facility] [address] [place] [address] Dr. Marcell Luque Hemoglobin (Bld) [Mass/Vol] 14.3 g/dL Normal 14.0-18.0 [facility] Comment on above: Performed By: #### P TT, PT #### [facility] [address] [place] [address] Dr. Marcell Luque IG # 0.01 10e3/ul Normal 0.00-0.03 [facility] Comment on above: Performed By: #### P TT, PT #### [facility] [address] [place] [address] Dr. Marcell Luque IG % 0.2 % Normal 0.0-0.5 [facility] Comment on above: Performed By: #### P TT, PT #### [facility] [address] [place] [address] Dr. Marcell Luque LYMPH # 2.1 103/ul Normal 1.2-3.8 [facility] Comment on above: Performed By: #### P TT, PT #### [facility] [address] [place] [address] Dr. Marcell Luque Lymphocytes/100 WBC (Bld) 32.6 % Normal 20.5-60.0 [facility] Comment on above: Performed By: #### P TT, PT #### [facility] [address] [place] [address] Dr. Marcell Luque MANUAL DIFF REQ NO Normal [facility] Comment on above: Performed By: #### P TT, PT #### [facility] [address] [place] [address] Dr. Marcell Luque MCH (RBC) [Entitic mass] 27.7 pg Normal 25.9-34.0 [facility] Comment on above: Performed By: #### P TT, PT #### [facility] [address] [place] [address] Dr. Marcell Luque MCHC (RBC) [Mass/Vol] 32.3 g/dL Normal 29.9-35.2 [facility] Comment on above: Performed By: #### P TT, PT #### [facility] [address] [place] [address] Dr. Marcell Luque MCV (RBC) [Entitic vol] 85.7 fL Normal 80.0-94.0 [facility] Comment on above: Performed By: #### P TT, PT #### [facility] [address] [place] [address] Dr. Marcell Luque MONO # 0.4 103/ul Normal 0.3-0.8 [facility] Comment on above: Performed By: #### P TT, PT #### [facility] [address] [place] [address] Dr. Marcell Luque Monocytes/100 WBC (Bld) 6.9 % Normal 1.7-12.0 [facility] Comment on above: Performed By: #### P TT, PT #### [facility] [address] [place] [address] Dr. Marcell Luque NEUT # 3.5 103/ul Normal 1.4-6.5 [facility] Comment on above: Performed By: #### P TT, PT #### [facility] [address] [place] [address] Dr. Marcell Luque Neutrophils/100 WBC (Bld) 54.2 % Normal 43.0-75.0 [facility] Comment on above: Performed By: #### P TT, PT #### [facility] [address] [place] [address] Dr. Marcell Luque Platelet mean volume (Bld) [Entitic vol] 11.9 fL Normal 9.5-13.5 [facility] Comment on above: Performed By: #### P TT, PT #### [facility] [address] [place] [address] Dr. Marcell Luque PLT 268 103/ul Normal 150-450 [facility] Comment on above: Performed By: #### P TT, PT #### [facility] [address] [place] [address] Dr. Marcell Luque RBC 5.17 106/ul Normal 4.70-6.10 [facility] Comment on above: Performed By: #### P TT, PT #### [facility] [address] [place] [address] Dr. Marcell Luque WBC 6.4 103/ul Normal 4.0-11.0 [facility] Comment on above: Performed By: #### P TT, PT #### [facility] [address] [place], [place] [id number] Dr. Marcell Luque GLYCOHEMOGLOBIN A1Con 2021 ADA RECOMMENDATION SEE BELOW Normal [facility] Comment on above: Result Comment: ADA RECOMMENDED LIMIT 4.0 - 6.0 ADA THERAPEUTIC TARGET < 7.0 ACTION SUGGESTED > 7.0 Performed By: #### A 1C #### [facility] [address] [place] [address] Dr. Marcell Luque Glucose [Mass/Vol] 272 mg/dL Normal [facility] Comment on above: Performed By: #### A 1C #### [facility] [address] [place] [address] Dr. Marcell Luque HbA1c (Bld) [Mass fraction] 11.1 % Critically high 4.5-6.2 [facility] Comment on above: Performed By: #### A 1C #### [facility] [address] [place] [address] Dr. Marcell Luque LIPID PROFILEon 01-26-2022 CHOL-HDL RATIO NORM SEE BELOW Normal [facility] Comment on above: Result Comment: 3.3 - 4.4 LOW RISK 4.4 - 7.1 AVERAGE RISK 7.1 - 11.0 MODERATE RISK >11.0 HIGH RISK Performed By: #### L KALPESH LIPID, BMP #### [facility] [address] [place] [address] Dr. Marcell Luque Cholesterol [Mass/Vol] 219 mg/dL Critically high <=200 [facility] Comment on above: Performed By: #### L KALPESH LIPID, BMP #### [facility] [address] [place] [address] Dr. Marcell Luque Cholesterol in HDL [Mass/Vol] 42 mg/dL Normal 40-60 [facility] Comment on above: Performed By: #### L KALPESH LIPID, BMP #### [facility] [address] [place] [address] Dr. Marcell Luque Cholesterol in LDL [Mass/Vol] 151.8 mg/dL Normal [facility] Comment on above: Performed By: #### L KALPESH LIPID, BMP #### [facility] [address] [place] [address] Dr. Marcell Luque Cholesterol.total/Cho lesterol in HDL [Mass ratio] 5.2 {ratio} Normal [facility] Comment on above: Performed By: #### L IVER, LIPID, BMP #### [facility] [address] [address] [address] Marcell Luque HDL NORMAL > or = 60 mg/dl - LOW CARDIOVASCULAR RISK <40 mg/dl - HIGH CARDIOVASCULAR RISK Normal [facility] Comment on above: Performed By: #### L IVER, LIPID, BMP #### [facility] [address] [address] [address] Marcell Luque LDL CALC NORMAL SEE BELOW Normal [facility] Comment on above: Result Comment: <100 mg/dl OPTIMAL 100 - 129 mg/dl NEAR OR ABOVE OPTIMAL 130 - 159 mg/dl BORDERLINE HIGH 160 - 189 mg/dl HIGH >190 mg/dl VERY HIGH Performed By: #### L IVER, LIPID, BMP #### [facility] [address] [address] [address] Marcell Luque Triglyceride [Mass/Vol] 126 mg/dL Normal <=150 [facility] Comment on above: Performed By: #### L IVER, LIPID, BMP #### [facility] [address] [place] [address] Dr. Marcell Luque VLDL CALC 25.2 mg/dL Normal [facility] Comment on above: Performed By: #### L IVER, LIPID, BMP #### [facility] [address] [address] [address] Marcell uLque LIVER PROFILEon 01-26-2022 Albumin [Mass/Vol] 3.8 g/dL Normal 3.4-5.0 [facility] Comment on above: Performed By: #### L IVER, LIPID, BMP #### [facility] [address] [address] [address] Marcell Luque Albumin/Globulin [Mass ratio] 1.0 {ratio} Normal [facility] Comment on above: Performed By: #### L IVER, LIPID, BMP #### [facility] [address] [address] [address] Marcell Luque ALP [Catalytic activity/Vol] 106 U/L Normal 46-116 [facility] Comment on above: Performed By: #### L IVER, LIPID, BMP #### [facility] [address] [place] [address] Dr. Marcell Luque ALT [Catalytic activity/Vol] 34 U/L Normal 16-63 [facility] Comment on above: Performed By: #### L IVER, LIPID, BMP #### [facility] [address] [place] [address] Dr. Marcell Luque AST [Catalytic activity/Vol] 19 U/L Normal 15-37 [facility] Comment on above: Performed By: #### L IVER, LIPID, BMP #### [facility] [address] [place] [address] Dr. Marcell Luque BILI, CONJUGATED 0.1 mg/dL Normal 0.0-0.2 [facility] Comment on above: Performed By: #### L IVER, LIPID, BMP #### [facility] [address] [place] [address] Dr. Marcell Luque Bilirubin [Mass/Vol] 0.5 mg/dL Normal 0.2-1.0 [facility] Comment on above: Performed By: #### L IVER, LIPID, BMP #### [facility] [address] [place] [address] Dr. Marcell Luque Globulin (S) [Mass/Vol] 3.9 g/dL Normal [facility] Comment on above: Performed By: #### L IVER, LIPID, BMP #### [facility] [address] [place] [address] Dr. Marcell Luque Protein [Mass/Vol] 7.7 g/dL Normal 6.4-8.2 [facility] Comment on above: Performed By: #### L IVER, LIPID, BMP #### [facility] [address] [place] [address] Dr. Marcell Luque PROF CHEM 8 (BAS METB)on Anion gap [Moles/Vol] 12.1 mmol/L Normal [facility] Comment on above: Performed By: #### L IVER, LIPID, BMP #### [facility] [address] [place] [address] Dr. Marcell Luque Calcium [Mass/Vol] 9.3 mg/dL Normal 8.5-10.1 [facility] Comment on above: Performed By: #### L IVER, LIPID, BMP #### [facility] [address] [place] [address] Dr. Marcell Luque Chloride [Moles/Vol] 100 mmol/L Normal 98-107 [facility] Comment on above: Performed By: #### L IVER, LIPID, BMP #### [facility] [address] [place] [address] Dr. Marcell Luque CO2 [Moles/Vol] 29.1 mmol/L Normal 21.0-32.0 [facility] Comment on above: Performed By: #### L IVER, LIPID, BMP #### [facility] [address] [place] [address] Dr. Marcell Luque Creatinine [Mass/Vol] 1.23 mg/dL Normal 0.70-1.30 [facility] Comment on above: Performed By: #### L IVER, LIPID, BMP #### [facility] [address] [place] [address] Dr. Marcell Luque EGFR-AF MALAYSIAN >60 Normal >=60 [facility] Comment on above: Performed By: #### L IVER, LIPID, BMP #### [facility] [address] [place] [address] Dr. Marcell Luque EGFR-NON AF MALAYSIAN 59 mL/min/1.73m2 Critically low >=60 [facility] Comment on above: Performed By: #### L IVER, LIPID, BMP #### [facility] [address] [place] [address] Dr. Marcell Luque Glucose [Mass/Vol] 358 mg/dL Critically high 74-106 T [facility] Comment on above: Performed By: #### L IVER, LIPID, BMP #### [facility] [address] [place] [address] Dr. Marcell Luque Potassium [Moles/Vol] 4.2 mmol/L Normal 3.5-5.1 [facility] Comment on above: Performed By: #### L KALPESH LIPID, BMP #### [facility] [address] [address] [address] Marcell Luque Sodium [Moles/Vol] 137 mmol/L Normal 136-145 [facility] Comment on above: Performed By: #### L KALPESH LIPID, BMP #### [facility] [address] [address] [address] Marcell Luque Urea nitrogen [Mass/Vol] 10.0 mg/dL Normal 7.0-18.0 [facility] Comment on above: Performed By: #### L KALPESH LIPID, BMP #### [facility] [address] [place] [address] Dr. Marcell Luque Urea nitrogen/Creatinine [Mass ratio] 8.1 mg/mg Normal [facility] Comment on above: Performed By: #### L KALPESH LIPID, BMP #### [facility] [address] [place] [address] Dr. Marcell Luque VITAMIN D 25 OHon 01-26-2022 VIT D 25-OH 40.2 ng/mL Normal [facility] Comment on above: Performed By: #### P TT, PT #### [facility] [address] [place] [address] Dr. Marcell Luque VIT D RANGES SEE BELOW Normal [facility] Comment on above: Result Comment: <20 ng/mL Vit D deficient 20 - <30 ng/mL Vit D insufficient 30 - 100 ng/mL Vit D sufficient >100 ng/mL Potential Toxicity Performed By: #### P TT, PT #### [facility] [address] [place] [address] Dr. Marcell Luque Protein S Activityon 019 Protein [Mass/Vol] 101 % Normal 77-[address] [facility] Comment on above: Result Comment: Patients [...] APA, PTT, PT, FA8, DRVT, PROCAC, PROSAC ####[facility] [address] [place] [address] Lab Director: Stas Irving MD APTTon 06-15-2019 aPTT Coag (Bld) [Time] 29.6 s Normal 20.5-30.[address] [facility] Comment on above: Performed By: #### H OCYS, APA, PTT, PT, FA8, DRVT, PROCAC, PROSAC ####[facility] [address] [place] [address] lab Director: Stas Irving MD Dilute Deepak Viperon 06-15 Dilute Deepak Viper Negative Normal [facility] Comment on above: Performed By: #### H OCYS, APA, PTT, PT, FA8, DRVT, PROCAC, PROSAC ####[address] [address] lab Director: Stas Irving MD Factor VIII Activityon 06-15 Factor VIII Activity 173 % High 50-150 [facility] Comment on above: Performed By: #### H OCYS, APA, PTT, PT, FA8, DRVT, PROCAC, PROSAC ####[facility] [address] [place] [address] Lab Director: Stas Irving MD PTon 06-15-2019 INR Coag (PPP) [Relative time] 1.1 {INR} Normal [facility] Comment on above: Result Comment: Therapeutic Range: Moderate Anticoagulant Intensity: INR = 2.0-3.0 High Anticoagulant Intensity: INR = 2.5-3.5 Performed By: #### H OCYS, APA, PTT, PT, FA8, DRVT, PROCAC, PROSAC ####[facility] [address] [place] [address] lab Director: Stas Irving MD PT Coag (PPP) [Time] 11.8 s Normal 9.0-12.0 [facility] Comment on above: Performed By: #### H OCYS, APA, PTT, PT, FA8, DRVT, PROCAC, PROSAC ####[facility] [address] [place] [address] [id number] Lab Director: Stas Irving MD Protein C Activityon 019 Protein [Mass/Vol] 130 % Normal >[address] [facility] Comment on above: Result Comment: Patients [...] APA, PTT, PT, FA8, DRVT, PROCAC, PROSAC ####[facility] [address] [place] [phone] Director: Stas Irving MD Anti-Phospholipid Abon 06-12 Antiphospholipid IgA 15.3 APU High <12 [facility] Comment on above: Result Comment: Reference Range: 12 - 15 Equivocal >15 Positive Performed By: #### H OCYS, APA, PTT, PT, FA8, DRVT, PROCAC, PROSAC ####[facility] [address] [place] [address] lab Director: Stas Irving MD Antiphospholipid IgG 2.7 GPU Normal <20 [facility] Comment on above: Result Comment: Reference Range: 20.0 - 29.9 Low Positive 30.0 - 79.9 Moderate Positive >79.9 High Positive Performed By: #### H OCYS, APA, PTT, PT, FA8, DRVT, PROCAC, PROSAC ####[facility] [address] [place] [id number] lab Director: Stas Irving MD Antiphospholipid IgM 4.7 MPU Normal <20 [facility] Comment on above: Result Comment: Reference Range: 20.0 - 29.9 Low Positive 30.0 - 79.9 Moderate Positive >79.9 High Positive Performed By: #### H OCYS, APA, PTT, PT, FA8, DRVT, PROCAC, PROSAC ####[facility] [address] [place] [address] Lab Director: Stas Irving MD Basic Metabolic Panel 05-22 Anion gap [Moles/Vol] 12 mmol/L 9 - 17 mmol/L [place], [place] Bun/Cre Ratio NOT REPORTED [place], [place] Calcium [Mass/Vol] 9.6 mg/dL 8.6 - 10. 4 mg/dL [place], [place] Chloride [Moles/Vol] 97 mmol/L Low 98 - 10 7 mmol/L [place] CO2 [Moles/Vol] 29 mmol/L 20 - 31 mmol/L [place] Creatinine [Mass/Vol] 1.08 mg/dL 0.7 - 1.2 mg/dL [place] GFR >60 >60 mL/min [place], [place] GFR Non- >60 >60 mL/min [place] GFR/1.73 sq M predicted among non-blacks MDRD (S/P/Bld) [Vol rate/Area] [place], [place] Comment on above: Average GFR for 60-6 9 years old: 85 mL/min/1.73sq m Chronic Kidney Disease: <60 mL/min/1.73sq m Kidney failure: <15 mL/min/1.73sq m eGFR calculated using average adult body mass. Additional eGFR calculator available at: http://www.Pancetera.SolarNOW/multiple_crcl_2012.htm GFR/1.73 sq M predicted among non-blacks MDRD (S/P/Bld) [Vol rate/Area] NOT REPORTED [place], [place] Glucose [Mass/Vol] 198 mg/dL High 70 - 99 mg/dL [place], [place] Interpretation and review of laboratory results Abnormal [place], [place] Potassium [Moles/Vol] 3.9 mmol/L 3.7 - 5.3 mmol/L [place] Sodium [Moles/Vol] 138 mmol/L 135 - 144 mmol/L [place] Urea nitrogen [Mass/Vol] 14 mg/dL 8 - 23 mg/dL [place] Basic Metabolic Profon 06-09 (cont.) Normal [facility] Comment on above: Result Comment: Aver age GFR for 60-69 years old: 85 mL/min/1.73sq m Chronic Kidney Disease: <60 mL/min/1.73sq m Kidney failure: <15 mL/min/1.73sq m eGFR calculated using average adult body mass. Additional eGFR calculator available at: http://www.LabRoots/multiple_crcl_2012.htm Performed By: #### C DP, BMP ####[facility] [address] [place] [address] Lab Director: Stas Irving MD Anion gap [Moles/Vol] 12 mmol/L Normal 9-17 [facility] Comment on above: Performed By: #### C DP, BMP ####[facility] [address] [place] [address] Lab Director: Stas Irving MD Calcium [Mass/Vol] 9.6 mg/dL Normal 8.6-10.[address] [facility] Comment on above: Performed By: #### C DP, BMP ####[facility] [address] [place] [address] Lab Director: Stas Irving MD Chloride [Moles/Vol] 97 mmol/L Low 98-107 [facility] Comment on above: Performed By: #### C DP, BMP ####[facility] [address] [place] [address] Lab Director: Stas Irving MD CO2 [Moles/Vol] 29 mmol/L Normal 20-[address] [facility] Comment on above: Performed By: #### C DP, BMP ####[facility] [address] [place] [address] Lab Director: Stas Irving MD Creatinine [Mass/Vol] 1.08 mg/dL Normal 0.70-1.20 [facility] Comment on above: Performed By: #### C DP, BMP ####[facility] [address] [place] [address] Lab Director: Stas Irving MD GFR, Amer >60 Normal >60 [facility] Comment on above: Performed By: #### C DP, BMP ####[facility] [address] [place], [place] [phone] Director: Stas Irving MD GFR,non Amer >60 Normal >60 [facility] Comment on above: Performed By: #### C DP, BMP ####[facility] [address] [place], [place] [phone] Director: Stas Irving MD Glucose [Mass/Vol] 198 mg/dL High 70-[address] [facility] Comment on above: Performed By: #### C DP, BMP ####[facility] [address] [place], [place] [phone] Director: Stas Irving MD Potassium [Moles/Vol] 3.9 mmol/L Normal 3.7-5.3 [facility] Comment on above: Performed By: #### C DP, BMP ####[facility] [address] [place], [place] [phone] Director: Stas Irving MD Sodium [Moles/Vol] 138 mmol/L Normal 135-[address] [facility] Comment on above: Performed By: #### C DP, BMP ####[facility] [address] [place], [place] [phone] Director: Stas Irving MD Urea nitrogen [Mass/Vol] 14 mg/dL Normal 8-[address] [facility] Comment on above: Performed By: #### C DP, BMP ####[facility] [address] [place], [place] [id number] Lab Director: Stas Irving MD BUN/CRE Ratio NOT REPORTED Normal 9- [facility] Comment on above: Performed By: #### C DP, BMP ####[facility] [facility] [address]lt[address] [place], [place] [id number] Lab Director: Stas Irving MD Staging: NOT REPORTED Normal [facility] Comment on above: Performed By: #### C DP, BMP ####[facility] [address]qvqhgs[address] [place], [place] [id number] lab Director: Stas Irving MD CBC Auto Differentialon 05-22 Basophils (Bld) [#/Vol] 0.07 10*3/uL [place] Basophils/100 WBC (Bld) 1 % 0 - 2 % [place] Differential Type NOT REPORTED [place] Eosinophils (Bld) [#/Vol] 0.77 10*3/uL [place] Eosinophils/100 WBC (Bld) 10 % High 1 - 4 % [place] Erythrocyte distribution width (RBC) [Ratio] 13.7 % 11.8 - 14.4 % [place] Hematocrit (Bld) [Volume fraction] 53.7 % High 40.7 - 50.3 % [place] Hemoglobin (Bld) [Mass/Vol] 17.0 g/dL 13 - 17 g/dL [place] Immature granulocytes (Bld) [#/Vol] 10*3/uL [place] Immature granulocytes (Bld) [#/Vol] 0 % 0 [place] Interpretation and review of laboratory results Abnormal [place] Lymphocytes (Bld) [#/Vol] 2.66 10*3/uL [place] Lymphocytes/100 WBC (Bld) 36 % 24 - 43 % [place] MCH (RBC) [Entitic mass] 28.3 pg 25.2 - 33.5 pg [place] MCHC (RBC) [Mass/Vol] 31.7 g/dL 28.4 - 34.8 g/dL [place] MCV (RBC) [Entitic vol] 89.5 fL 82.6 - 102.9 fL [place] Monocytes (Bld) [#/Vol] 0.89 10*3/uL [place] Monocytes/100 WBC (Bld) 12 % 3 - 12 % [place] Platelet mean volume (Bld) [Entitic vol] 10.9 fL 8.1 - 13.5 fL [place] Platelets (Bld) [#/Vol] NOT REPORTED [place] Platelets (Bld) [#/Vol] 189 10*3/uL [place] RBC (Bld) [#/Vol] 6.00 10*6/uL High 4.21 - 5.7 7 m/uL [place] RBC morphology finding Nom (Bld) NOT REPORTED [place] Segmented neutrophils/100 WBC (Bld) 41 % 36 - 65 % [place] Segs Absolute 3.07 [place] WBC (Bld) [#/Vol] 0.0 10*3/uL 0.0 per 10 0 WBC [place] WBC (Bld) [#/Vol] 7.5 10*3/uL [place] WBC Morphology NOT REPORTED [place] CBC with Diffon 06-09-2019 Abs. Basophil 0.07 k/uL Normal 0.00-0.[address] [facility] Comment on above: Performed By: #### C LISANDRO, BONI ####[facility] [address] [place] [address] [facility] Director: Stas Irving MD Abs.Imm.Granulocyte <0.03 Normal 0.00-0.[address] [facility] Comment on above: Performed By: #### C DP, BMP ####[facility] [address] [place], [place] [phone] Director: Stas Irving MD Abs.Neutrophil (Seg) 3.07 k/uL Normal 1.50-8.10 [facility] Comment on above: Performed By: #### C DP, BMP ####[address] [address])[phone] Director: Stas Irving MD Basophils/100 WBC (Bld) 1 % Normal 0-[address] [facility] Comment on above: Performed By: #### C DP, BMP ####[address] [address])[phone] Director: Stas Irving MD Eosinophils (Bld) [#/Vol] 0.77 10*3/uL High 0.00-0.[address] [facility] Comment on above: Performed By: #### C DP, BMP ####[address] [address])[phone] Director: Stas Irving MD Eosinophils/100 WBC (Bld) 10 % High 1-[address] [facility] Comment on above: Performed By: #### C DP, BMP ####[address] [address])[phone] Director: Stas Irving MD Erythrocyte distribution width (RBC) [Ratio] 13.7 % Normal 11.8-14.[address] [facility] Comment on above: Performed By: #### C DP, BMP ####[facility] [address] [place] [address])[phone] Director: Stas Irving MD Hematocrit (Bld) [Volume fraction] 53.7 % High 40.7-50.[address] [facility] Comment on above: Performed By: #### C DP, BMP ####[facility] [address] [place] [address] Lab Director: Stas Irving MD Hemoglobin (Bld) [Mass/Vol] 17.0 g/dL Normal 13.0-17.[address] [facility] Comment on above: Performed By: #### C DP, BMP ####[address] [address] Lab Director: Stas Irving MD Immature granulocytes (Bld) [#/Vol] 0 % Normal [address] [facility] Comment on above: Performed By: #### C DP, BMP ####[address] [address] Lab Director: Stas Irving MD Lymphocytes (Bld) [#/Vol] 2.66 10*3/uL Normal 1.10-3.[address] [facility] Comment on above: Performed By: #### C DP, BMP ####[address] [phone] Director: Stas Irving MD Lymphocytes/100 WBC (Bld) 36 % Normal 24-[address] [facility] Comment on above: Performed By: #### C DP, BMP ####[facility] [address] [place], [place] [id number])[phone] Director: Stas Irving MD MCH (RBC) [Entitic mass] 28.3 pg Normal 25.2-33.[address] [facility] Comment on above: Performed By: #### C DP, BMP ####[facility] [address] [place] [address] [phone])[phone] Director: Stas Irving MD MCHC (RBC) [Mass/Vol] 31.7 g/dL Normal 28.4-34.8 [facility] Comment on above: Performed By: #### C DP, BMP ####[facility] [address] [place] [address] Lab Director: Stas Irving MD MCV (RBC) [Entitic vol] 89.5 fL Normal 82.6-102.[address] [facility] Comment on above: Performed By: #### C DP, BMP ####[place], [place] [address])[phone] Director: Stas Irving MD Monocytes (Bld) [#/Vol] 0.89 10*3/uL Normal 0.10-1.[address] [facility] Comment on above: Performed By: #### C DP, BMP ####[place], [place] [address])[phone] Director: Stas Irving MD Monocytes/100 WBC (Bld) 12 % Normal 3-[address] [facility] Comment on above: Performed By: #### C DP, BMP ####[place], [place] [address])[phone] Director: Stas Irving MD Neutrophil (Seg) 41 % Normal 36-65 [facility] Comment on above: Performed By: #### C DP, BMP ####[place], [place] [address])[phone] Director: Stas Irving MD NRBC Automated 0.0 per 100 WBC Normal 0.[address] [facility] Comment on above: Performed By: #### C DP, BMP ####[place], [place] [address])[phone] Director: Stas Irving MD Platelet mean volume (Bld) [Entitic vol] 10.9 fL Normal 8.1-13.[address] [facility] Comment on above: Performed By: #### C DP, BMP ####[place], [place] [address])[phone] Director: Stas Irving MD Platelets (Bld) [#/Vol] 189 10*3/uL Normal 138-[address] [facility] Comment on above: Performed By: #### C DP, BMP ####[facility] [address] [place] [address] Lab Director: Stas Irving MD RBC (Bld) [#/Vol] 6.00 10*6/uL High 4.21-5.[address] [facility] Comment on above: Performed By: #### C DP, BMP ####[facility] [place] [address] Lab Director: Stas Irving MD WBC (Bld) [#/Vol] 7.5 10*3/uL Normal 3.5-11.[address] [facility] Comment on above: Performed By: #### C DP, BMP ####[address] [place] [address] Lab Director: Stas Irving MD Auto Diff Performed NOT REPORTED Normal [facility] Comment on above: Performed By: #### C DP, BMP ####[facility] [place] [address] Lab Director: Stas Irving MD Platelets (Bld) [#/Vol] NOT REPORTED Normal [facility] Comment on above: Performed By: #### C DP, BMP ####[facility] [address] [place] [address] Lab Director: Sats Irving MD RBC morphology finding Nom (Bld) NOT REPORTED Normal [facility] Comment on above: Performed By: #### C DP, BMP ####[facility] [address]ytad17[address] [place], [place] [phone])[phone] Director: Stas Irving MD WBC Morphology NOT REPORTED Normal [facility] Comment on above: Performed By: #### C DP, BMP ####[facility] [address] [place] [address] Lab Director: Stas Irving MD DNA Testingon 06-09-2019 DNA Testing (NOTE) [id number] [facility] MOLE[facility] PATHOLOGY LABORATORY [address] [place] [phone] FACTOR V LEIDEN MUTATION ANALYSIS REPORT [facility] Aron Llanes MD, Ravinder Pratt MD Specimen(s) Received: Peripheral blood, FVLI Clinical Information: CVA RESULTS: MOLECULAR GENETIC DIAGNOSIS: Negative for Factor V Leiden Mutation INTERPRETATION: The Factor V Leiden mutation (1691GA) [c.1601G>A(p.Inh288K ln)] was not detected in this study. This patient may, however, still be at risk for venous thrombosis due to another genetic predisposition including the Factor II (Prothrombin 50195VN) mutation or either of the 5, 10-methylenetetrahyd rofolate reductase (MTHFR) mutations (677T and K4293C) Additional molecular testing is available for these [...] which predicts a single amino acid replacement (Rld029Stg) at one of three activated protein C [...] the Invader Factor V test that utilizes [employer] chemistry for detecting gene-specific sequences. Target amplification [...] Invader and Cleavase are registered trademarks of [employer]. This test is performed pursuant to an agreement with [employer]. Electronically Signed Out Ravinder Pratt M.D. [facility] Comment on above: Performed By: #### P PPFVL ####[address] [phone] Lab Director: Stas Irving MD DNA Testing (NOTE) [id number] [facility] MOLECULAR PATHOLOGY LABORATORY [facility] [place], [place] [address] FACTOR II (PROTHROMBIN) MUTATION ANALYSIS REPORT [facility] Aron Llanes MD, Ravinder Pratt MD Specimen(s) Received: Peripheral blood, PTI Clinical Information: CVA RESULTS: MOLECULAR GENETIC DIAGNOSIS: Negative for Prothrombin 10215I Mutation INTERPRETATION: The Factor II (Prothrombin) mutation (15967VH) [c.*97G>A] was not detected in this study. This patient may, however, still be at risk for venous thrombosis due to another genetic predisposition including the Factor V Leiden (1691GA) mutation or either of the 5, 10-methylenetetrahyd rofolate reductase (MTHFR) mutations (677T and H2257Z). Additional molecular testing is available for these [...] been identified in exon 14 at position 37560 of the prothrombin gene (93764QO). This allele has a population frequency of 1.2% and is associated with a 2.8 fold increased risk of venous thrombosis in individuals of [place] ancestry. Patient DNA is assayed for the presence of wild type or mutant gene sequences in the Factor II (Prothrombin) gene by the Invader Factor II test that utilizes [employer] chemistry for detecting gene-specific sequences. Target amplification [...] Invader and Cleavase are registered trademarks of [employer] This test is performed pursuant to an agreement with [employer] Electronically Signed Out Ravinder Pratt M.D. Normal [facility] Comment on above: Performed By: #### P PPPT ####[address] [place] [address] [facility] Director: Stas Irving MD Homocysteineon 06-09-2019 Homocysteine 9.4 umol/L Normal <15.[address] [facility] Comment on above: Performed By: #### H OCYS, APA, PTT, PT, FA8, DRVT, PROCAC, PROSAC ####[facility] [address] [place] [address] lab Director: Stas Irving MD Homocysteine, Serumon 2018 Homocysteine 9.4 umol/L <15.0 [place] POC Glucose Fingerstickon Glucose [Mass/Vol] 276 mg/dL High 75 - 110 mg/dL [place] Interpretation and review of laboratory results Abnormal [place], [place] Glucose [Mass/Vol] 190 mg/dL High 75 - 110 mg/dL [place] Interpretation and review of laboratory results Abnormal [place] Basic Metabolic Panelon 05-22 Anion gap [Moles/Vol] 14 mmol/L 9 - 17 mmol/L [place] Bun/Cre Ratio NOT REPORTED [place] Calcium [Mass/Vol] 9.2 mg/dL 8.6 - 10. 4 mg/dL [place] Chloride [Moles/Vol] 96 mmol/L Low 98 - 10 7 mmol/L [place] CO2 [Moles/Vol] 24 mmol/L 20 - 31 mmol/L [place] Creatinine [Mass/Vol] 0.79 mg/dL 0.7 - 1.2 mg/dL [place] GFR >60 >60 mL/min [place] GFR Non- >60 >60 mL/min [place] GFR/1.73 sq M predicted among non-blacks MDRD (S/P/Bld) [Vol rate/Area] NOT REPORTED [place] GFR/1.73 sq M predicted among non-blacks MDRD (S/P/Bld) [Vol rate/Area] [place] Comment on above: Average GFR for 60-6 9 years old: 85 mL/min/1.73sq m Chronic Kidney Disease: <60 mL/min/1.73sq m Kidney failure: <15 mL/min/1.73sq m eGFR calculated using average adult body mass. Additional eGFR calculator available at: http://www.[employer]Roots/multiple_crcl_2012.htm Glucose [Mass/Vol] 225 mg/dL High 70 - 99 mg/dL [place] Interpretation and review of laboratory results Abnormal [place] Potassium [Moles/Vol] 3.3 mmol/L Low 3.7 - 5.3 mmol/L [place] Sodium [Moles/Vol] 134 mmol/L Low 135 - 144 mmol/L [place] Urea nitrogen [Mass/Vol] 11 mg/dL 8 - 23 mg/dL [place] Basic Metabolic Profon 06-08 (cont.) Normal [facility] Comment on above: Result Comment: Aver age GFR for 60-69 years old: 85 mL/min/1.73sq m Chronic Kidney Disease: <60 mL/min/1.73sq m Kidney failure: <15 mL/min/1.73sq m eGFR calculated using average adult body mass. Additional eGFR calculator available at: http://www.LabRoots/multiple_crcl_2012.htm Performed By: #### S MAGDY #### [facility] [address] [place] [address] [id number] [employer] In[employer]ter: Stas Irving MD Anion gap [Moles/Vol] 14 mmol/L Normal 9-17 [facility] Comment on above: Performed By: #### S TOREYKE #### [employer] [facility] [place], [place] [phone] [employer] Inserter: Stas Irving MD Calcium [Mass/Vol] 9.2 mg/dL Normal 8.6-10.[address] [facility] Comment on above: Performed By: #### S TOREYKE #### [employer] [address] [place] [address] [phone] [employer] In[employer]ter: Stas Irving MD Chloride [Moles/Vol] 96 mmol/L Low 98-107 [facility] Comment on above: Performed By: #### S TROKE #### [address] [address] [employer]ter: Stas Irving MD CO2 [Moles/Vol] 24 mmol/L Normal 20-[address] [facility] Comment on above: Performed By: #### S TROKE #### [address] [address] [employer]ter: Stas Irving MD Creatinine [Mass/Vol] 0.79 mg/dL Normal 0.70-1.20 [facility] Comment on above: Performed By: #### S TROKE #### [address] [address] [employer]ter: Stas Irving MD GFR, Amer >60 Normal >60 [facility] Comment on above: Performed By: #### S TROKE #### [address] [address] [employer]ter: Stas Irving MD GFR,non Amer >60 Normal >60 [facility] Comment on above: Performed By: #### S TROKE #### [address] [address] [employer]ter: Stas Irving MD Glucose [Mass/Vol] 225 mg/dL High 70-[address] [facility] Comment on above: Performed By: #### S TROKE #### [address] [address] [employer]ter: Stas Irving MD Potassium [Moles/Vol] 3.3 mmol/L Low 3.7-5.3 [facility] Comment on above: Performed By: #### S TROKE #### [address] [address] [employer]ter: Stas Irving MD Sodium [Moles/Vol] 134 mmol/L Low 135-[address] [facility] Comment on above: Performed By: #### S TOREYKE #### [facility] [address] [place] [address] [employer] Inserter: Stas Irving MD Urea nitrogen [Mass/Vol] 11 mg/dL Normal - [facility] Comment on above: Performed By: #### S TOREYKE #### [facility] [address] [place] [address] [employer] In[employer]ter: Stsa Irving MD BUN/CRE Ratio NOT REPORTED Normal 05-[address] [facility] Comment on above: Performed By: #### S TOREYKE #### [facility] [address] [place] [address] [employer] In[employer]ter: Stas Irving MD Staging: NOT REPORTED Normal [facility] Comment on above: Performed By: #### S TOREYKE #### [facility] [address] [place] [address] [employer] In[employer]ter: Stas Irving MD CBC Auto Differentialon 05-22 Basophils (Bld) [#/Vol] 0.06 10*3/uL [place] Basophils/100 WBC (Bld) 1 % 0 - 2 % [place] Differential Type NOT REPORTED [place] Eosinophils (Bld) [#/Vol] 0.56 10*3/uL [place] Eosinophils/100 WBC (Bld) 8 % High 1 - 4 % [place] Erythrocyte distribution width (RBC) [Ratio] 13.9 % 11.8 - 14.4 % [place] Hematocrit (Bld) [Volume fraction] 50.9 % High 40.7 - 50.3 % [place] Hemoglobin (Bld) [Mass/Vol] 16.8 g/dL 13 - 17 g/dL [place] Immature granulocytes (Bld) [#/Vol] 1 % High 0 [place] Immature granulocytes (Bld) [#/Vol] 0.04 10*3/uL [place] Interpretation and review of laboratory results Abnormal [place] Lymphocytes (Bld) [#/Vol] 2.28 10*3/uL [place] Lymphocytes/100 WBC (Bld) 32 % 24 - 43 % [place] MCH (RBC) [Entitic mass] 28.6 pg 25.2 - 33.5 pg [place] MCHC (RBC) [Mass/Vol] 33.0 g/dL 28.4 - 34.8 g/dL [place] MCV (RBC) [Entitic vol] 86.6 fL 82.6 - 102.9 fL [place] Monocytes (Bld) [#/Vol] 0.79 10*3/uL [place] Monocytes/100 WBC (Bld) 11 % 3 - 12 % [place] Platelet mean volume (Bld) [Entitic vol] 12.0 fL 8.1 - 13.5 fL [place] Platelets (Bld) [#/Vol] 285 10*3/uL [place] Platelets (Bld) [#/Vol] NOT REPORTED [place] RBC (Bld) [#/Vol] 5.88 10*6/uL High 4.21 - 5.7 7 m/uL [place] RBC morphology finding Nom (Bld) NOT REPORTED [place] Segmented neutrophils/100 WBC (Bld) 47 % 36 - 65 % [place] Segs Absolute 3.38 [place] WBC (Bld) [#/Vol] 7.1 10*3/uL [place] WBC (Bld) [#/Vol] 0.3 10*3/uL High 0.0 per 10 0 WBC [place] WBC Morphology NOT REPORTED [place] CBC with Diffon 06-08-2019 Abs. Basophil 0.06 k/uL Normal 0.00-0.[address] [facility] Comment on above: Performed By: #### S MAGDY #### [address] [address] [employer] Inserter: Stas Irving MD Abs.Imm.Granulocyte 0.04 k/uL Normal 0.00-0.[address] [facility] Comment on above: Performed By: #### S TOREYKE #### [address] [address] [employer] Inserter: Stas Irving MD Abs.Neutrophil (Seg) 3.38 k/uL Normal 1.50-8.10 [facility] Comment on above: Performed By: #### S MAGDY #### [address] [address] [employer] Inserter: Stas Irving MD Basophils/100 WBC (Bld) 1 % Normal 0-[address] [facility] Comment on above: Performed By: #### S MAGDY #### [address] [address] [employer] Inserter: Stas Irving MD Eosinophils (Bld) [#/Vol] 0.56 10*3/uL High 0.00-0.[address] [facility] Comment on above: Performed By: #### S TOREYKE #### [address] [address] [employer] In[employer]ter: Stas Irving MD Eosinophils/100 WBC (Bld) 8 % High 1-[address] [facility] Comment on above: Performed By: #### S TOREYKE #### [address] [address] [employer] Inserter: Stas Irving MD Erythrocyte distribution width (RBC) [Ratio] 13.9 % Normal 11.8-14.[address] [facility] Comment on above: Performed By: #### S TOREYKE #### [address] [address] [employer] Inserter: Stas Irving MD Hematocrit (Bld) [Volume fraction] 50.9 % High 40.7-50.[address] [facility] Comment on above: Performed By: #### S MAGDY #### [address] [address] [employer] Inserter: Stas Irving MD Hemoglobin (Bld) [Mass/Vol] 16.8 g/dL Normal 13.0-17.[address] [facility] Comment on above: Performed By: #### S MAGDY #### [address] [address] [employer]ter: Stas Irving MD Immature granulocytes (Bld) [#/Vol] 1 % High [address] [facility] Comment on above: Performed By: #### S MAGDY #### [place] [address] [employer] In[employer]ter: Stas Irving MD Lymphocytes (Bld) [#/Vol] 2.28 10*3/uL Normal 1.10-3.[address] [facility] Comment on above: Performed By: #### S MAGDY #### [address] [address] [employer] Inserter: Stas Irving MD Lymphocytes/100 WBC (Bld) 32 % Normal 24-[address] [facility] Comment on above: Performed By: #### S MAGDY #### [place] [address] [employer] Inserter: Stas Irving MD MCH (RBC) [Entitic mass] 28.6 pg Normal 25.2-33.[address] [facility] Comment on above: Performed By: #### S MAGDY #### [address] [address] [employer] Inserter: Stas Irving MD MCHC (RBC) [Mass/Vol] 33.0 g/dL Normal 28.4-34.8 [facility] Comment on above: Performed By: #### S TROKE #### [address] [address] [employer] Inserter: Stas Irving MD MCV (RBC) [Entitic vol] 86.6 fL Normal 82.6-102.[address] [facility] Comment on above: Performed By: #### S TROKE #### [address] [address] [employer] Inserter: Stas Irving MD Monocytes (Bld) [#/Vol] 0.79 10*3/uL Normal 0.10-1.[address] [facility] Comment on above: Performed By: #### S TROKE #### [address] [address] [employer] Inserter: Stas Irving MD Monocytes/100 WBC (Bld) 11 % Normal 3-[address] [facility] Comment on above: Performed By: #### S TROKE #### [address] [address] [employer] Inserter: Stas Irving MD Neutrophil (Seg) 47 % Normal 36-65 [facility] Comment on above: Performed By: #### S TROKE #### [address] [address] [employer] Inserter: Stas Irving MD NRBC Automated 0.3 per 100 WBC High 0.[address] [facility] Comment on above: Performed By: #### S TROKE #### [address] [address] [employer] Inserter: Stas Irving MD Platelet mean volume (Bld) [Entitic vol] 12.0 fL Normal 8.1-13.[address] [facility] Comment on above: Performed By: #### S TROKE #### [address] [address] [employer] Inserter: Stas Irving MD Platelets (Bld) [#/Vol] 285 10*3/uL Normal 138-[address] [facility] Comment on above: Performed By: #### S TOREYKE #### [address] [address] [employer] Inserter: Stas Irving MD RBC (Bld) [#/Vol] 5.88 10*6/uL High 4.21-5.[address] [facility] Comment on above: Performed By: #### S TOREYKE #### [address] [address] Jew[employer] Inserter: Stas Irving MD WBC (Bld) [#/Vol] 7.1 10*3/uL Normal 3.5-11.[address] [facility] Comment on above: Performed By: #### S MAGDY #### [address] [address] [employer] Inserter: Stas Irving MD Auto Diff Performed NOT REPORTED Normal [facility] Comment on above: Performed By: #### S MAGDY #### [address] [address] Jew[employer] Inserter: Stas Irving MD Platelets (Bld) [#/Vol] NOT REPORTED Normal [facility] Comment on above: Performed By: #### S TOREYKE #### [address] [address] [employer] Inserter: Stas Irving MD RBC morphology finding Nom (Bld) NOT REPORTED Normal [facility] Comment on above: Performed By: #### S TOREYKE #### [address] [address] Jewel Inserter: Stas Irving MD WBC Morphology NOT REPORTED Normal [facility] Comment on above: Performed By: #### S MAGDY #### [address] [id number] [employer] Inserter: Stas Irving MD Magnesiumon 06-08-2019 Magnesium [Mass/Vol] 2.0 mg/dL Normal 1.6-2.6 [facility] Comment on above: Performed By: #### S TROKE #### [facility] [address] [place], [place] [id number] Jewel Inserter: Stas Irving MD Magnesium [Mass/Vol] 2.0 mg/dL 1.6 - 2 .6 mg/dL [place] POC Glucose Fingerstickon Glucose [Mass/Vol] 288 mg/dL High 75 - 110 mg/dL [place] Interpretation and review of laboratory results Abnormal [place] Glucose [Mass/Vol] 350 mg/dL High 75 - 110 mg/dL [place] Interpretation and review of laboratory results Abnormal [place] Glucose [Mass/Vol] 238 mg/dL High 75 - 110 mg/dL [place] Interpretation and review of laboratory results Abnormal [place] Glucose [Mass/Vol] 244 mg/dL High 75 - 110 mg/dL [place] Interpretation and review of laboratory results Abnormal [place] Phosphoruson 06-08-2019 Phosphate [Mass/Vol] 4.5 mg/dL 2.5 - 4 .5 mg/dL [place] Phosphorus, Inorg.on 019 Phosphorus, Inorg. 4.5 mg/dL Normal 2.5-4.[address] [facility] Comment on above: Performed By: #### C DP, BMP, MG, CINTHYA ####[facility] [address] [place], [place] [id number] Lab Director: Stas Irving MD VL DUP LOWER EXTREMITY VENOU S BILATERALon 06-08-2019 [facility] Vascular Lower Extremities DVT Study Procedure [facility] Date of Study 06/08/2019 EUNICE Alcantara Date of 1955 Gender Male Age 63 year(s) Race Black Room Number 0515 Height: 72 inch, 182.88 cm Corporate ID [id number] Weight: 220 pounds, 99.8 kg # Patient Acct [id number] BSA: 2.22 m^2 BMI: 29.84 kg/m^2 # MR # [id number] Care Manager Rina Frausto Interpreting Omer Oneil Physician Referring Referring Physician DYLON VICK APRN-THERAPY DIRECTOR Nurse Practitioner Procedure Type of Study: Veins: [...] !Phasic! ! ! + --------+------+---- --+ + ONE Change [facility]- [place], [place] Nav, Mhpn Incoming Cardio Results From Cpacs/Ge - 06/08/2019 6:36 PM EDT [facility] Vascular Lower Extremities DVT Study Procedure Patient Name LYDIA Date of Study 06/08/2019 EUNICE Alcantara Date of 1955 Gender Male Age 63 year(s) Race Black Room Number 0515 Height: 72 inch, 182.88 cm Corporate ID [id number] Weight: 220 pounds, 99.8 kg # Patient Acct [id number] BSA: 2.22 m^2 BMI: 29.84 kg/m^2 # MR # [id number] Care Manager Rina Frausto Interpreting Omer Oneil Physician Referring Referring Physician DYLON VICK PRODUCT/DEVICE TECHNOLOGIST-THERAPY DIRECTOR Nurse Practitioner Procedure Type of Study: Veins: [...] ! + --------+------+---- --+ + [facility] [place] [place] Basic Metabolic Panelon 10- Anion gap [Moles/Vol] 12 mmol/L 9 - 17 mmol/L [facility] [place] Bun/Cre Ratio NOT REPORTED [facility], [place] Calcium [Mass/Vol] 9.3 mg/dL 8.6 - 10. 4 mg/dL [facility] [place] [place] Chloride [Moles/Vol] 97 mmol/L Low 98 - 10 7 mmol/L [facility] [place] [place] CO2 [Moles/Vol] 26 mmol/L 20 - 31 mmol/L [facility] [place] Creatinine [Mass/Vol] 0.76 mg/dL 0.7 - 1.2 mg/dL [facility] [place] GFR >60 >60 mL/min [facility] [place] GFR Non- >60 >60 mL/min [facility] [place] [place] GFR/1.73 sq M predicted among non-blacks MDRD (S/P/Bld) [Vol rate/Area] NOT REPORTED [facility] [place] GFR/1.73 sq M predicted among non-blacks MDRD (S/P/Bld) [Vol rate/Area] [place], [place] Comment on above: Average GFR for 60-6 9 years old: 85 mL/min/1.73sq m Chronic Kidney Disease: <60 mL/min/1.73sq m Kidney failure: <15 mL/min/1.73sq m eGFR calculated using average adult body mass. Additional eGFR calculator available at: http://www.LabRoots/multiple_crcl_2012.htm Glucose [Mass/Vol] 232 mg/dL High 70 - 99 mg/dL [place], [place] Potassium [Moles/Vol] 3.4 mmol/L Low 3.7 - 5.3 mmol/L [place] Sodium [Moles/Vol] 135 mmol/L 135 - 144 mmol/L [place] Urea nitrogen [Mass/Vol] 8 mg/dL 8 - 23 mg/dL [place] Basic Metabolic Profon 06-07 (cont.) Normal [facility] Comment on above: Result Comment: Aver age GFR for 60-69 years old: 85 mL/min/1.73sq m Chronic Kidney Disease: <60 mL/min/1.73sq m Kidney failure: <15 mL/min/1.73sq m eGFR calculated using average adult body mass. Additional eGFR calculator available at: http://www.LabRoots/multiple_crcl_2012.htm Performed By: #### Dorian CURRAN #### [facility] [place], [place] [phone] Jewel Inserter: Stas Irving MD Anion gap [Moles/Vol] 12 mmol/L Normal - [facility] Comment on above: Performed By: #### S MAGDY #### [facility] [address] [place], [place] [phone] Jewel Inserter: Stas Irving MD Calcium [Mass/Vol] 9.3 mg/dL Normal 8.6-10.[address] [facility] Comment on above: Performed By: #### S MAGDY #### [facility] [address] [place] [address] [phone] Jewel Inserter: Stas Irving MD Chloride [Moles/Vol] 97 mmol/L Low 98-107 [facility] Comment on above: Performed By: #### S TROKE #### [address] [address] Jewel Inserter: Stas Irving MD CO2 [Moles/Vol] 26 mmol/L Normal 20-[address] [facility] Comment on above: Performed By: #### S TROKE #### [address] [address] Jewel Inserter: Stas Irving MD Creatinine [Mass/Vol] 0.76 mg/dL Normal 0.70-1.20 [facility] Comment on above: Performed By: #### S TROKE #### [address] [address] Jewel Inserter: Stas Irving MD GFR, Amer >60 Normal >60 [facility] Comment on above: Performed By: #### S TROKE #### [address] [address] Jewel Inserter: Stas Irving MD GFR,non Amer >60 Normal >60 [facility] Comment on above: Performed By: #### S TROKE #### [address] [address] Jewel Inserter: Stas Irving MD Glucose [Mass/Vol] 232 mg/dL High 70-[address] [facility] Comment on above: Performed By: #### S TROKE #### [address] [address] Jewel Inserter: Stas Irving MD Potassium [Moles/Vol] 3.4 mmol/L Low 3.7-5.3 [facility] Comment on above: Performed By: #### S TROKE #### [address] [place] [address] Jewel Inserter: Stas Irving MD Sodium [Moles/Vol] 135 mmol/L Normal 135-[address] [facility] Comment on above: Performed By: #### S TROKE #### [facility] [address] [place] [address] Jewel Inserter: Stas Irving MD Urea nitrogen [Mass/Vol] 8 mg/dL Normal 8- [facility] Comment on above: Performed By: #### S TROKE #### [facility] [address] [place] [address] Jewel Inserter: Stas Irving MD BUN/CRE Ratio NOT REPORTED Normal - [facility] Comment on above: Performed By: #### S TROKE #### [facility] [place] [address] Jewel Inserter: Stas Irving MD Staging: NOT REPORTED Normal [facility] Comment on above: Performed By: #### S TROKE #### [facility] [address] [place] [phone] Jewel Inserter: Stas Irving MD CBC Auto Differentialon 05-22 Basophils (Bld) [#/Vol] 0.08 10*3/uL [place] Basophils/100 WBC (Bld) 1 % 0 - 2 % [place] Differential Type NOT REPORTED [place] Eosinophils (Bld) [#/Vol] 0.59 10*3/uL High [place] Eosinophils/100 WBC (Bld) 8 % High 1 - 4 % [place] Erythrocyte distribution width (RBC) [Ratio] 13.6 % 11.8 - 14.4 % [place] Hematocrit (Bld) [Volume fraction] 51.5 % High 40.7 - 50.3 % [place] Hemoglobin (Bld) [Mass/Vol] 16.7 g/dL 13 - 17 g/dL [place] Immature granulocytes (Bld) [#/Vol] 0 % 0 [place] Immature granulocytes (Bld) [#/Vol] 10*3/uL [place] Interpretation and review of laboratory results Abnormal [place] Lymphocytes (Bld) [#/Vol] 2.32 10*3/uL [place] Lymphocytes/100 WBC (Bld) 32 % 24 - 43 % [place] MCH (RBC) [Entitic mass] 28.2 pg 25.2 - 33.5 pg [place] MCHC (RBC) [Mass/Vol] 32.4 g/dL 28.4 - 34.8 g/dL [place] MCV (RBC) [Entitic vol] 86.8 fL 82.6 - 102.9 fL [place] Monocytes (Bld) [#/Vol] 0.66 10*3/uL [place] Monocytes/100 WBC (Bld) 9 % 3 - 12 % [place] Platelet mean volume (Bld) [Entitic vol] 10.9 fL 8.1 - 13.5 fL [place] Platelets (Bld) [#/Vol] 196 10*3/uL [place] Platelets (Bld) [#/Vol] NOT REPORTED [place] RBC (Bld) [#/Vol] 5.93 10*6/uL High 4.21 - 5.7 7 m/uL [place] RBC morphology finding Nom (Bld) NOT REPORTED [place] Segmented neutrophils/100 WBC (Bld) 50 % 36 - 65 % [place] Segs Absolute 3.69 [place], [place] WBC (Bld) [#/Vol] 7.4 10*3/uL [place] WBC (Bld) [#/Vol] 0.0 10*3/uL 0.0 per 10 0 WBC [place] WBC Morphology NOT REPORTED [place] CBC with Diffon 06-07-2019 Abs. Basophil 0.08 k/uL Normal 0.00-0.[address] [facility] Comment on above: Performed By: #### S MAGDY #### [address] [address] Jewel Inserter: Stas Irving MD Abs.Imm.Granulocyte <0.03 Normal 0.00-0.[address] [facility] Comment on above: Performed By: #### S MAGDY #### [place] [address] Jewel Inserter: Stas Irving MD Abs.Neutrophil (Seg) 3.69 k/uL Normal 1.50-8.10 [facility] Comment on above: Performed By: #### S MAGDY #### [place] [address] Jewel Inserter: Stas Irving MD Basophils/100 WBC (Bld) 1 % Normal 0-[address] [facility] Comment on above: Performed By: #### S MAGDY #### [place] [address] Jewel Inserter: Stas Irving MD Eosinophils (Bld) [#/Vol] 0.59 10*3/uL High 0.00-0.[address] [facility] Comment on above: Performed By: #### S MAGDY #### [address] [address] Jewel Inserter: Stas Irving MD Eosinophils/100 WBC (Bld) 8 % High 1-[address] [facility] Comment on above: Performed By: #### S TOREYKE #### [place] [address] Jewel Inserter: Stas Irving MD Erythrocyte distribution width (RBC) [Ratio] 13.6 % Normal 11.8-14.[address] [facility] Comment on above: Performed By: #### S MAGDY #### [place] [address] Jewel Inserter: Stas Irving MD Hematocrit (Bld) [Volume fraction] 51.5 % High 40.7-50.[address] [facility] Comment on above: Performed By: #### S TROKE #### [address] [address] Jewel Inserter: Stas Irving MD Hemoglobin (Bld) [Mass/Vol] 16.7 g/dL Normal 13.0-17.[address] [facility] Comment on above: Performed By: #### S TOREYKE #### [address] [address] Jewel Inserter: Stas Irving MD Immature granulocytes (Bld) [#/Vol] 0 % Normal [address] [facility] Comment on above: Performed By: #### S MAGDY #### [address] [address] Jewel Inserter: Stas Irving MD Lymphocytes (Bld) [#/Vol] 2.32 10*3/uL Normal 1.10-3.[address] [facility] Comment on above: Performed By: #### S TOREYKE #### [address] [address] Jewel Inserter: Stas Irving MD Lymphocytes/100 WBC (Bld) 32 % Normal 24-[address] [facility] Comment on above: Performed By: #### S TOREYKE #### [address] [address] Jewel Inserter: Stas Irving MD MCH (RBC) [Entitic mass] 28.2 pg Normal 25.2-33.[address] [facility] Comment on above: Performed By: #### S TROKE #### [address] [address] Jewel Inserter: Stas Irving MD MCHC (RBC) [Mass/Vol] 32.4 g/dL Normal 28.4-34.8 [facility] Comment on above: Performed By: #### S TOREYKE #### [address] [address] Jewel Inserter: Stas Irving MD MCV (RBC) [Entitic vol] 86.8 fL Normal 82.6-102.[address] [facility] Comment on above: Performed By: #### S TROKE #### [place] [address] Jewel Inserter: Stas Irving MD Monocytes (Bld) [#/Vol] 0.66 10*3/uL Normal 0.10-1.[address] [facility] Comment on above: Performed By: #### S TOREYKE #### [place] [address] Jewel Inserter: Stas Irving MD Monocytes/100 WBC (Bld) 9 % Normal 3-[address] [facility] Comment on above: Performed By: #### S TOREYKE #### [place] [address] Jewel Inserter: Stas Irving MD Neutrophil (Seg) 50 % Normal 36-65 [facility] Comment on above: Performed By: #### S TOREYKE #### [place] [address] Jewel Inserter: Stas Irving MD NRBC Automated 0.0 per 100 WBC Normal 0.[address] [facility] Comment on above: Performed By: #### S TOREYKE #### [place] [address] Jewel Inserter: Stas Irving MD Platelet mean volume (Bld) [Entitic vol] 10.9 fL Normal 8.1-13.[address] [facility] Comment on above: Performed By: #### S TROKE #### [address] [address] Jewel Inserter: Stas Irving MD Platelets (Bld) [#/Vol] 196 10*3/uL Normal 138-[address] [facility] Comment on above: Performed By: #### S TROKE #### [address] [address] Jewel Inserter: Stas Irving MD RBC (Bld) [#/Vol] 5.93 10*6/uL High 4.21-5.[address] [facility] Comment on above: Performed By: #### S TROKE #### [address] [address] Jewel Inserter: Stas Irving MD WBC (Bld) [#/Vol] 7.4 10*3/uL Normal 3.5-11.[address] [facility] Comment on above: Performed By: #### S TROKE #### [address] [address] Jewel Inserter: Stas Irving MD Auto Diff Performed NOT REPORTED Normal [facility] Comment on above: Performed By: #### S TROKE #### [address] [address] Jewel Inserter: Stas Irving MD Platelets (Bld) [#/Vol] NOT REPORTED Normal [facility] Comment on above: Performed By: #### S TROKE #### [address] [address] Jewel Inserter: Stas Irving MD RBC morphology finding Nom (Bld) NOT REPORTED Normal [facility] Comment on above: Performed By: #### S TROKE #### [address] [address] Jewel Inserter: Stas Irving MD WBC Morphology NOT REPORTED Normal [facility] Comment on above: Performed By: #### S TROKE #### [facility] [address] [place] [address] Jewel Inserter: Stas Irving MD CT HEAD WO CONTRASTon [...] Bustos MD 06/06/[address] Final [address] [facility] MAGNESIUMon 06-07-2019 Magnesium [Mass/Vol] 1.9 mg/dL 1.6 - 2 .6 mg/dL [place] MRI BRAIN WO CONTRASTon 05-22 MRI [...] Berger MD 06/07/[address] [facility] MRI Brain WO Contraston 05-22 1. [...] communicated to a licensed caregiver. [facility] [place] EXAMINATION: MRI OF THE BRAIN WITHOUT CONTRAST [...] BONES/SOFT TISSUES: No significant abnormalities. [facility] [place] Nav, [facility] [[email or web address] Incoming Radiant Results From JUNIQE/jaeyos - 06/07/2019 11:19 AM EDT EXAMINATION: MRI [...] 06/07/2019to be communicated to a licensed caregiver. [place] Magnesiumon 06-07-2019 Magnesium [Mass/Vol] 1.9 mg/dL Normal 1.6-2.6 [facility] Comment on above: Performed By: #### S MAGDY #### [facility] [address] [place] [phone] Jewel Inserter: Stas Irving MD Otheron 06-07-2019 Interpretation and review of laboratory results Abnormal [place] PHOSPHORUSon 06-07-2019 Phosphate [Mass/Vol] 5.4 mg/dL High 2.5 - 4 .5 mg/dL [place] POC Glucose Fingerstickon Glucose [Mass/Vol] 309 mg/dL High 75 - 110 mg/dL [place] Interpretation and review of laboratory results Abnormal [place] Glucose [Mass/Vol] 330 mg/dL High 75 - 110 mg/dL [place] Interpretation and review of laboratory results Abnormal [place] Glucose [Mass/Vol] 251 mg/dL High 75 - 110 mg/dL [place] Interpretation and review of laboratory results Abnormal [place] Glucose [Mass/Vol] 273 mg/dL High 75 - 110 mg/dL [place] Interpretation and review of laboratory results Abnormal [place] Phosphorus, Inorg.on 019 Phosphorus, Inorg. 5.4 mg/dL High 2.5-4.[address] [facility] Comment on above: Performed By: #### S TROKE #### [facility] [address] [place] [address] Jewel Inserter: Stas Irving MD BASIC METABOLIC PANELon 05-22 Anion gap [Moles/Vol] 16 mmol/L 9 - 17 mmol/L [place] Bun/Cre Ratio NOT REPORTED [place] Calcium [Mass/Vol] 9.2 mg/dL 8.6 - 10. 4 mg/dL [place] Chloride [Moles/Vol] 101 mmol/L 98 - 10 7 mmol/L [place] CO2 [Moles/Vol] 20 mmol/L 20 - 31 mmol/L [place] Creatinine [Mass/Vol] 0.48 mg/dL Low 0.7 - 1.2 mg/dL [place] GFR >60 >60 mL/min [place], [place] GFR Non- >60 >60 mL/min [place] GFR/1.73 sq M predicted among non-blacks MDRD (S/P/Bld) [Vol rate/Area] NOT REPORTED [place] GFR/1.73 sq M predicted among non-blacks MDRD (S/P/Bld) [Vol rate/Area] [place] Comment on above: Average GFR for 60-6 9 years old: 85 mL/min/1.73sq m Chronic Kidney Disease: <60 mL/min/1.73sq m Kidney failure: <15 mL/min/1.73sq m eGFR calculated using average adult body mass. Additional eGFR calculator available at: http://www.Pancetera.SolarNOW/multiple_crcl_2012.htm Glucose [Mass/Vol] 264 mg/dL High 70 - 99 mg/dL [place] Potassium [Moles/Vol] 3.9 mmol/L 3.7 - 5.3 mmol/L [place] Sodium [Moles/Vol] 137 mmol/L 135 - 144 mmol/L [place] Urea nitrogen [Mass/Vol] 5 mg/dL Low 8 - 23 mg/dL [place] Basic Metabolic Profon 06-06 (cont.) Normal [facility] Comment on above: Result Comment: Aver age GFR for 60-69 years old: 85 mL/min/1.73sq m Chronic Kidney Disease: <60 mL/min/1.73sq m Kidney failure: <15 mL/min/1.73sq m eGFR calculated using average adult body mass. Additional eGFR calculator available at: http://www.LabRoots/multiple_crcl_2012.htm Performed By: #### C DP, BMP, LIPR, MG, CINTHYA, GLYHGB #### [employer] [address] [place] [address] Jewel Inserter: Stas Irving MD Anion gap [Moles/Vol] 16 mmol/L Normal 9-17 [facility] Comment on above: Performed By: #### C DP, BMP, LIPR, MG, CINTHYA, GLYHGB #### [employer] [address] [place] [phone] Jewel Inserter: Stas Irving MD Calcium [Mass/Vol] 9.2 mg/dL Normal 8.6-10.[address] [facility] Comment on above: Performed By: #### C DP, BMP, LIPR, MG, CINTHYA, GLYHGB #### [employer] [address] [place] [address] [phone] Jewel Inserter: Stas Irving MD Chloride [Moles/Vol] 101 mmol/L Normal 98-107 [facility] Comment on above: Performed By: #### C DP, BMP, LIPR, MG, CINTHYA, GLYHGB #### [address] [address] Jewel Inserter: Stas Irving MD CO2 [Moles/Vol] 20 mmol/L Normal 20-[address] [facility] Comment on above: Performed By: #### C DP, BMP, LIPR, MG, CINTHYA, GLYHGB #### [address] [address] Jewel Inserter: Stas Irving MD Creatinine [Mass/Vol] 0.48 mg/dL Low 0.70-1.20 [facility] Comment on above: Performed By: #### C DP, BMP, LIPR, MG, CINTHYA, GLYHGB #### [address] [address] Jewel Inserter: Stas Irving MD GFR, Amer >60 Normal >60 [facility] Comment on above: Performed By: #### C DP, BMP, LIPR, MG, CINTHYA, GLYHGB #### [address] [address] Jewel Inserter: Stas Irving MD GFR,non Amer >60 Normal >60 [facility] Comment on above: Performed By: #### C DP, BMP, LIPR, MG, CINTHYA, GLYHGB #### [address] [address] Jewel Inserter: Stas Irving MD Glucose [Mass/Vol] 264 mg/dL High 70-[address] [facility] Comment on above: Performed By: #### C DP, BMP, LIPR, MG, CINTHYA, GLYHGB #### [address] [address] Jewel Inserter: Stas Irving MD Potassium [Moles/Vol] 3.9 mmol/L Normal 3.7-5.3 [facility] Comment on above: Performed By: #### C DP, BMP, LIPR, MG, CINTHYA, GLYHGB #### [facility] [place] [address] Jewel Inserter: Stas Irving MD Sodium [Moles/Vol] 137 mmol/L Normal 135-[address] [facility] Comment on above: Performed By: #### C DP, BMP, LIPR, MG, CINTHYA, GLYHGB #### [facility] [address] [place] [address] Jewel Inserter: Stas Irving MD Urea nitrogen [Mass/Vol] 5 mg/dL Low 8- [facility] Comment on above: Performed By: #### C DP, BMP, LIPR, MG, CINTHYA, GLYHGB #### [facility] [address] [place] [address] Jewel Inserter: Stas Irving MD BUN/CRE Ratio NOT REPORTED Normal 05-[address] [facility] Comment on above: Performed By: #### C DP, BMP, LIPR, MG, CINTHYA, GLYHGB #### [facility] [address] [place] [address] Jewel Inserter: Stas Irving MD Staging: NOT REPORTED Normal [facility] Comment on above: Performed By: #### C DP, BMP, LIPR, MG, CINTHYA, GLYHGB #### [facility] [address] [place] [address] Jewel Inserter: Stas Irving MD CBC WITH AUTO DIFFERENTIALon 06-06-2019 Basophils (Bld) [#/Vol] 0.08 10*3/uL [place] Basophils/100 WBC (Bld) 1 % 0 - 2 % [place] Differential Type NOT REPORTED [place] Eosinophils (Bld) [#/Vol] 0.62 10*3/uL High [place] Eosinophils/100 WBC (Bld) 9 % High 1 - 4 % [place] Erythrocyte distribution width (RBC) [Ratio] 13.8 % 11.8 - 14.4 % [place] Hematocrit (Bld) [Volume fraction] 49.9 % 40.7 - 50.3 % [place] Hemoglobin (Bld) [Mass/Vol] 16.4 g/dL 13 - 17 g/dL [place] Immature granulocytes (Bld) [#/Vol] 10*3/uL [place] Immature granulocytes (Bld) [#/Vol] 0 % 0 [place] Interpretation and review of laboratory results Abnormal [place] Lymphocytes (Bld) [#/Vol] 2.13 10*3/uL [place] Lymphocytes/100 WBC (Bld) 29 % 24 - 43 % [place] MCH (RBC) [Entitic mass] 28.6 pg 25.2 - 33.5 pg [place] MCHC (RBC) [Mass/Vol] 32.9 g/dL 28.4 - 34.8 g/dL [place] MCV (RBC) [Entitic vol] 86.9 fL 82.6 - 102.9 fL [place] Monocytes (Bld) [#/Vol] 0.62 10*3/uL [place] Monocytes/100 WBC (Bld) 9 % 3 - 12 % [place] Platelet mean volume (Bld) [Entitic vol] 10.1 fL 8.1 - 13.5 fL [place] Platelets (Bld) [#/Vol] 221 10*3/uL [place] Platelets (Bld) [#/Vol] NOT REPORTED [place] RBC (Bld) [#/Vol] 5.74 10*6/uL 4.21 - 5.7 7 m/uL [place] RBC morphology finding Nom (Bld) NOT REPORTED [place] Segmented neutrophils/100 WBC (Bld) 52 % 36 - 65 % [place] Segs Absolute 3.86 [place] WBC (Bld) [#/Vol] 0.0 10*3/uL 0.0 per 10 0 WBC [place] WBC (Bld) [#/Vol] 7.3 10*3/uL [place] WBC Morphology NOT REPORTED [place] CBC with Diffon 06-06-2019 Abs. Basophil 0.08 k/uL Normal 0.00-0.[address] [facility] Comment on above: Performed By: #### C DP, BMP, LIPR, MG, CINTHYA, GLYHGB #### [facility] [address] [place] [id number] Jewel Inserter: Stas Irving MD Abs.Imm.Granulocyte <0.03 Normal 0.00-0.[address] [facility] Comment on above: Performed By: #### C DP, BMP, LIPR, MG, CINTHYA, GLYHGB #### [facility] [address] [place] [address] Jewel Inserter: Stas Irving MD Abs.Neutrophil (Seg) 3.86 k/uL Normal 1.50-8.10 [facility] Comment on above: Performed By: #### C DP, BMP, LIPR, MG, CINTHYA, GLYHGB #### [facility] [address] [place] [phone] Jewel Inserter: Stas Irving MD Basophils/100 WBC (Bld) 1 % Normal 0-[address] [facility] Comment on above: Performed By: #### C DP, BMP, LIPR, MG, CINTHYA, GLYHGB #### [facility] [address] [place] [address] Jewel Inserter: Stas Irving MD Eosinophils (Bld) [#/Vol] 0.62 10*3/uL High 0.00-0.[address] [facility] Comment on above: Performed By: #### C DP, BMP, LIPR, MG, CINTHYA, GLYHGB #### [facility] [address] [place] [address] Jewel Inserter: Stas Irving MD Eosinophils/100 WBC (Bld) 9 % High 1-[address] [facility] Comment on above: Performed By: #### C DP, BMP, LIPR, MG, CINTHYA, GLYHGB #### [facility] [address] [place] [address] Jewel Inserter: Stas Irving MD Erythrocyte distribution width (RBC) [Ratio] 13.8 % Normal 11.8-14.[address] [facility] Comment on above: Performed By: #### C DP, BMP, LIPR, MG, CINTHYA, GLYHGB #### [facility] [address] [place] [address] Jewel Inserter: Stas Irving MD Hematocrit (Bld) [Volume fraction] 49.9 % Normal 40.7-50.[address] [facility] Comment on above: Performed By: #### C DP, BMP, LIPR, MG, CINTHYA, GLYHGB #### [facility] [address] [place] [address] Jewel Inserter: Stas Irving MD Hemoglobin (Bld) [Mass/Vol] 16.4 g/dL Normal 13.0-17.[address] [facility] Comment on above: Performed By: #### C DP, BMP, LIPR, MG, CINTHYA, GLYHGB #### [facility] [address] [place] [phone] Jewel Inserter: Stas Irving MD Immature granulocytes (Bld) [#/Vol] 0 % Normal [address] [facility] Comment on above: Performed By: #### C DP, BMP, LIPR, MG, CINTHYA, GLYHGB #### [facility] [address] [place] [address] Jewel Inserter: Stas Irving MD Lymphocytes (Bld) [#/Vol] 2.13 10*3/uL Normal 1.10-3.[address] [facility] Comment on above: Performed By: #### C DP, BMP, LIPR, MG, CINTHYA, GLYHGB #### [address] [address] Jewel Inserter: Stas Irving MD Lymphocytes/100 WBC (Bld) 29 % Normal 24-[address] [facility] Comment on above: Performed By: #### C DP, BMP, LIPR, MG, CINTHYA, GLYHGB #### [address] [phone] Jewel Inserter: Stas Irving MD MCH (RBC) [Entitic mass] 28.6 pg Normal 25.2-33.[address] [facility] Comment on above: Performed By: #### C DP, BMP, LIPR, MG, CINTHYA, GLYHGB #### [address] [address] Jewel Inserter: Stas Irving MD MCHC (RBC) [Mass/Vol] 32.9 g/dL Normal 28.4-34.8 [facility] Comment on above: Performed By: #### C DP, BMP, LIPR, MG, CINTHYA, GLYHGB #### [address] [address] Jewel Inserter: Stas Irving MD MCV (RBC) [Entitic vol] 86.9 fL Normal 82.6-102.[address] [facility] Comment on above: Performed By: #### C DP, BMP, LIPR, MG, CINTHYA, GLYHGB #### [address] [address] Jewel Inserter: Stas Irving MD Monocytes (Bld) [#/Vol] 0.62 10*3/uL Normal 0.10-1.[address] [facility] Comment on above: Performed By: #### C DP, BMP, LIPR, MG, CINTHYA, GLYHGB #### [address] [address] Jewel Inserter: Stas Irving MD Monocytes/100 WBC (Bld) 9 % Normal 3-[address] [facility] Comment on above: Performed By: #### C DP, BMP, LIPR, MG, CINTHYA, GLYHGB #### [address] [address] Jewel Inserter: Stas Irving MD Neutrophil (Seg) 52 % Normal 36-65 [facility] Comment on above: Performed By: #### C DP, BMP, LIPR, MG, CINTHYA, GLYHGB #### [address] [address] Jewel Inserter: Stas Irving MD NRBC Automated 0.0 per 100 WBC Normal 0.[address] [facility] Comment on above: Performed By: #### C DP, BMP, LIPR, MG, CINTHYA, GLYHGB #### [address] [address] Jewel Inserter: Stas Irving MD Platelet mean volume (Bld) [Entitic vol] 10.1 fL Normal 8.1-13.[address] [facility] Comment on above: Performed By: #### C DP, BMP, LIPR, MG, CINTHYA, GLYHGB #### [address] [address] Jewel Inserter: Stas Irving MD Platelets (Bld) [#/Vol] 221 10*3/uL Normal 138-[address] [facility] Comment on above: Performed By: #### C DP, BMP, LIPR, MG, CINTHYA, GLYHGB #### [address] [address] Jewel Inserter: Stas Irving MD RBC (Bld) [#/Vol] 5.74 10*6/uL Normal 4.21-5.[address] [facility] Comment on above: Performed By: #### C DP, BMP, LIPR, MG, CINTHYA, GLYHGB #### [address] [address] Jewel Inserter: Stas Irving MD WBC (Bld) [#/Vol] 7.3 10*3/uL Normal 3.5-11.[address] [facility] Comment on above: Performed By: #### C DP, BMP, LIPR, MG, CINTHYA, GLYHGB #### [address] [address] Jewel Inserter: Stas rIving MD Auto Diff Performed NOT REPORTED Normal [facility] Comment on above: Performed By: #### C DP, BMP, LIPR, MG, CINTHYA, GLYHGB #### [address] [address] Jewel Inserter: Stas Irving MD Platelets (Bld) [#/Vol] NOT REPORTED Normal [facility] Comment on above: Performed By: #### C DP, BMP, LIPR, MG, CINTHYA, GLYHGB #### [address] [address] Jewel Inserter: Stas Irving MD RBC morphology finding Nom (Bld) NOT REPORTED Normal [facility] Comment on above: Performed By: #### C DP, BMP, LIPR, MG, CINTHYA, GLYHGB #### [address] [address] Jewel Inserter: Stas Irving MD WBC Morphology NOT REPORTED Normal [facility] Comment on above: Performed By: #### C DP, BMP, LIPR, MG, CINTHYA, GLYHGB #### [address] [address] Jewel Inserter: Stas Irving MD CT HEAD WO CONTRASTon [...] Goyal MD 06/05/19 Final result Normal [facility] CT head without contraston 1 Nav, [facility] [[email or web address] Incoming Radiant Results From JUNIQE/jaeyos - 06/06/2019 10:31 PM EDT EXAMINATION: CT [...] effect. 3. Redemonstration of multifocal remote infarcts. [place], [place] EXAMINATION: CT OF THE HEAD WITHOUT [...] intact. No acute intracranial hemorrhage. [facility]. No evidence of an acute evolving infarct. 2. No acute intracranial hemorrhage or global mass effect. 3. Redemonstration of multifocal remote infarcts. [facility] [place] CTA HEAD W CON AND CTA NECK [...] Goyal MD 06/05/[address] Final [address] Normal [facility] EKG 12 Leadon 06-06-2019 Atrial Rate 81 BPM [place], [place] P Colome 67 degrees [facility] [place] P-R Interval 174 ms [place] Q-T Interval 378 ms [place] QRS Duration 90 ms [place] QTc Calculation (Bazett) 439 ms [facility] [place] R Colome -15 degrees [facility] [place] T Colome 24 degrees [facility] [place] Ventricular Rate 81 BPM [place], [place] Normal sinus rhythm Nonspecific T wave abnormality Abnormal ECG No previous ECGs available [place] Nav, Mhpn Incoming Ekg Results From [facility] [place] - 06/06/2019 9:23 AM EDT Normal sinus rhythm Nonspecific T wave abnormality Abnormal ECG No previous ECGs available [place] Hemoglobin A1Con 06-06-2019 HbA1c (Bld) [Mass fraction] 306 mg/dL Normal [facility] Comment on above: Result Comment: The ADA and AACC recommend providing the estimated average glucose result to permit better patient understanding of their HBA1c result. Performed By: #### C DP, BMP, LIPR, MG, CINTHYA, GLYHGB #### [facility] [address] [place], [place] [id number] Jewel Inserter: Stas Irving MD HbA1c (Bld) [Mass fraction] 12.3 % High 4.0-6.[address] [facility] Comment on above: Performed By: #### C DP, BMP, LIPR, MG, CINTHYA, GLYHGB #### [facility] [address] [place], [place] [phone] Jewel Inserter: Stas Irving MD Glucose [Mass/Vol] 306 mg/dL [place] Comment on above: The ADA and AACC rec ommend providing the estimated average glucose result to permit better patient understanding of their HBA1c result. HbA1c (Bld) [Mass fraction] 12.3 % High 4 - 6 % [place] Interpretation and review of laboratory results Abnormal [place] LIPID PANELon 06-06-2019 Cholesterol [Mass/Vol] 294 mg/dL High <200 [place] Comment on above: Cholesterol Guidelines: <200 Desirable 200-240 Borderline >240 Undesirable Cholesterol in HDL [Mass/Vol] 38 mg/dL Low >40 [place] Comment on above: HDL Guidelines: <40 Undesirable 40-59 Borderline >59 Desirable Cholesterol in LDL [Mass/Vol] 216 mg/dL High 0 - 130 mg/dL [place] Comment on above: LDL Guidelines: <100 Desirable 100-129 Near to/above Desirable 130-159 Borderline >159 Undesirable Direct (measured) LDL and calculated LDL are not interchangeable tests. Cholesterol in VLDL [Mass/Vol] NOT REPORTED High 1 - 30 mg/dL [place] Cholesterol.total/Cho lesterol in HDL [Mass ratio] 7.7 {ratio} High <5 [place] Triglyceride [Mass/Vol] 200 mg/dL High <150 [place] Comment on above: Triglyceride Guidelines: <150 Desirable 150-199 Borderline 200-499 High >499 Very high Based on AHA Guidelines for fasting triglyceride, May 2012. Lipid Profileon 06-06-2019 Cholesterol [Mass/Vol] 294 mg/dL High <[address] [facility] Comment on above: Result Comment: Cholesterol Guidelines: <200 Desirable 200-240 Borderline >240 Undesirable Performed By: #### C DP, BMP, LIPR, MG, CINTHYA, GLYHGB #### [employer] [address] [place] [address] Jewel Inserter: Stas Irving MD Cholesterol in HDL [Mass/Vol] 38 mg/dL Low >[address] [facility] Comment on above: Result Comment: HDL Guidelines: <40 Undesirable 40-59 Borderline >59 Desirable Performed By: #### C DP, BMP, LIPR, MG, CINTHYA, GLYHGB #### [employer] [address] [place] [phone] Jewel Inserter: Stas Irving MD Cholesterol in LDL [Mass/Vol] 216 mg/dL High 0-[address] [facility] Comment on above: Result Comment: LDL Guidelines: <100 Desirable 100-129 Near to/above Desirable 130-159 Borderline >159 Undesirable Direct (measured) LDL and calculated LDL are not interchangeable tests. Performed By: #### C DP, BMP, LIPR, MG, CINTHYA, GLYHGB #### [employer] [address] [place] [address] Jewel Inserter: Stas Irving MD Cholesterol.total/Cho lesterol in HDL [Mass ratio] 7.7 {ratio} High <[address] [facility] Comment on above: Performed By: #### C DP, BMP, LIPR, MG, CINTHYA, GLYHGB #### [employer] [address] [place] [address] Jewel Inserter: Stas Irving MD Triglyceride [Mass/Vol] 200 mg/dL High <[address] [facility] Comment on above: Result Comment: Triglyceride Guidelines: <150 Desirable 150-199 Borderline 200-499 High >499 Very high Based on AHA Guidelines for fasting triglyceride, May 2012. Performed By: #### C DP, BMP, LIPR, MG, CINTHYA, GLYHGB #### [facility] [address] [place] [address] Jewel Inserter: Stas Irving MD Cholesterol in VLDL [Mass/Vol] NOT REPORTED Normal 09-[address] [facility] Comment on above: Performed By: #### C DP, BMP, LIPR, MG, CINTHYA, GLYHGB #### [facility] [address] [place] [address] Jewel Inserter: Stas Irving MD MAGNESIUMon 06-06-2019 Magnesium [Mass/Vol] 2.0 mg/dL 1.6 - 2 .6 mg/dL [place] MRSA DNA Probe, Nasalon 05-22 MRSA, DNA, Nasal NEGATIVE: MRSA DNA not detected by nucleic acid amplification. NEGATIVE: MRSA DNA not detected by nucleic acid amplificati [place] Comment on above: Results should be used as an adjunct to nosocomial control efforts to identify patients needing enhanced precautions. The test is not intended to identify patients with staphylococcal infections. Results should not be used to guide or monitor treatment for MRSA infections. Specimen Description .NASAL SWAB [place], [place] MRSA, DNA, Nasalon 9 MRSA, DNA, Nasal NEGATIVE: MRSA DNA not detected by nucleic acid amplification. Normal NMRSAA [facility] Comment on above: Result Comment: Results should be used as an adjunct to nosocomial control efforts to identify patients needing enhanced precautions. The test is not intended to identify patients with staphylococcal infections. Results should not be used to guide or monitor treatment for MRSA infections. Performed By: #### S TROKE #### [facility] [address] [place] [address] Jewel Inserter: Stas Irving MD Specimen Description .NASAL SWAB Normal [facility] Comment on above: Performed By: #### S TROKE #### [employer] [address] [place], [place] [phone] Jewel Inserter: Stas Irving MD Magnesiumon 06-06-2019 Magnesium [Mass/Vol] 2.0 mg/dL Normal 1.6-2.6 [facility] Comment on above: Performed By: #### C DP, BMP, LIPR, MG, CINTHYA, GLYHGB #### [facility] [address] [place], [place] [phone] Jewel Inserter: Stas Irving MD Otheron 06-06-2019 Interpretation and review of laboratory results Abnormal [place] PHOSPHORUSon 06-06-2019 Phosphate [Mass/Vol] 3.2 mg/dL 2.5 - 4 .5 mg/dL [place] POC Glucose Fingerstickon Glucose [Mass/Vol] 315 mg/dL High 75 - 110 mg/dL [place] Interpretation and review of laboratory results Abnormal [place] Glucose [Mass/Vol] 310 mg/dL High 75 - 110 mg/dL [place] Interpretation and review of laboratory results Abnormal [place] Glucose [Mass/Vol] 257 mg/dL High 75 - 110 mg/dL [place] Interpretation and review of laboratory results Abnormal [place] Glucose [Mass/Vol] 265 mg/dL High 75 - 110 mg/dL [place] Interpretation and review of laboratory results Abnormal [place] Glucose [Mass/Vol] 211 mg/dL High 75 - 110 mg/dL [place] Interpretation and review of laboratory results Abnormal [place] POCT glucoseon 06-06-2019 Glucose [Mass/Vol] 211 mg/dL [place] Interpretation and review of laboratory results Normal [place] Phosphorus, Inorg.on 019 Phosphorus, Inorg. 3.2 mg/dL Normal 2.5-4.[address] [facility] Comment on above: Performed By: #### C DP, BMP, LIPR, MG, CINTHYA, GLYHGB #### [employer] [address] [place] [phone] Jewel Inserter: Stas Irving MD Anion Gap (Calc) POCon 06-05 Anion gap [Moles/Vol] 10 mmol/L 7 - 16 mmol/L [place] CALCIUM, IONIC (POC)on 06-05 POC Ionized Calcium 1.18 mmol/L 1.15 - 1 .33 mmol/L [place] CHLORIDE (POC)on 06-05-2019 Chloride [Moles/Vol] 99 mmol/L 98 - 10 7 mmol/L [place] CT Head WO Contraston 2018 EXAMINATION: [...] of the visualized skull or soft tissues. [place] Nav, Mhpn Incoming Radiant Results From JUNIQE/[facility]redfast[facility] - 06/05/2019 10:17 PM EDT EXAMINATION: CT [...] Discussed with Dr. Son at 10:14 p.m.. [place] No acute intracranial abnormality. 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 Pansinusitis. RECOMMENDATIONS: The findings were sent to the Radiology Results Communication Center at 10:13 pm on 06/05/2019to be communicated to a licensed caregiver. Discussed with Dr. Son at 10:14 p.m.. [place] CTA HEAD NECK W CONTRASTon 1 Nav, [facility] [[email or web address]] Incoming Radiant Results From JUN[facility]E/Spredfast[facility] - 06/05/2019 10:57 PM EDT EXAMINATION: CTA [...] discussed with Dr. Son at 10:50 p.m.. 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 Otherwise negative CTA of the head and neck. RECOMMENDATIONS: The findings were sent to the Radiology Results Communication Center at 10:48 pm on 06/05/2019to be communicated to a licensed caregiver. Case discussed with Dr. Son at 10:50 p.m.. [place] EXAMINATION: CTA OF THE HEAD AND [...] bilateral remote basal ganglia infarcts again noted. [place] Creatinine W/GFR Point of Ca re 06-05-2019 Creatinine [Mass/Vol] 0.77 mg/dL 0.51 - 1.19 mg/dL [place] GFR Non- >60 >60 mL/min [place] GFR/1.73 sq M predicted among non-blacks MDRD (S/P/Bld) [Vol rate/Area] mL/min/{1.73_m2} >60 mL/min [place] GFR/1.73 sq M predicted among non-blacks MDRD (S/P/Bld) [Vol rate/Area] [place] Comment on above: Average GFR for 60-6 9 years old: 85 mL/min/1.73sq m Chronic Kidney Disease: <60 mL/min/1.73sq m Kidney failure: <15 mL/min/1.73sq m eGFR calculated using average adult body mass. Additional eGFR calculator available at: http://www.Pancetera.SolarNOW/multiple_crcl_2012.htm Hemoglobin and hematocrit, b sierra 06-05-2019 Hematocrit (Bld) [Volume fraction] 47 % 41 - 53 % [place] Hemoglobin (Bld) [Mass/Vol] 16.0 g/dL 13.5 - 17.5 g/dL [place] Lactic Acid, POCon 9 POC Lactic Acid 1.62 mmol/L High 0.56 - 1.39 mmol/L [place] Otheron 06-05-2019 Interpretation and review of laboratory results Abnormal [place] POC Glucose Fingerstickon Glucose [Mass/Vol] 315 mg/dL High 75 - 110 mg/dL [place] Interpretation and review of laboratory results Abnormal [place] POCT Glucoseon 06-05-2019 Glucose [Mass/Vol] 344 mg/dL High 74 - 100 mg/dL [place] POTASSIUM (POC)on 06-05-2019 Potassium [Moles/Vol] 3.9 mmol/L 3.5 - 4.5 mmol/L [place] SODIUM (POC)on 06-05-2019 Sodium [Moles/Vol] 136 mmol/L Low 138 - 146 mmol/L [place] STROKE PANELon 06-05-2019 % CKMB 2.4 % 0 - 3.5 % [place] Anion gap [Moles/Vol] 12 mmol/L 9 - 17 mmol/L [place] aPTT Coag (Bld) [Time] 26.4 s [place] Basophils (Bld) [#/Vol] 0.06 10*3/uL [place] Basophils/100 WBC (Bld) 1 % 0 - 2 % [place] Bun/Cre Ratio NOT REPORTED [place] Calcium [Mass/Vol] 9.7 mg/dL 8.6 - 10. 4 mg/dL [place] Chloride [Moles/Vol] 98 mmol/L 98 - 10 7 mmol/L [place] CK.MB [Mass/Vol] NORMAL ISOENZYME PATTERN [place] CK.MB [Mass/Vol] 3.3 ng/mL <10.5 [place] CO2 [Moles/Vol] 25 mmol/L 20 - 31 mmol/L [place] Creatinine [Mass/Vol] 0.83 mg/dL 0.7 - 1.2 mg/dL [place] Differential Type NOT REPORTED [place] Eosinophils (Bld) [#/Vol] 0.46 10*3/uL High [place] Eosinophils/100 WBC (Bld) 6 % High 1 - 4 % [place] Erythrocyte distribution width (RBC) [Ratio] 13.7 % 11.8 - 14.4 % [place] GFR >60 >60 mL/min [place], [place] GFR Non- >60 >60 mL/min [place] GFR/1.73 sq M predicted among non-blacks MDRD (S/P/Bld) [Vol rate/Area] NOT REPORTED [place] GFR/1.73 sq M predicted among non-blacks MDRD (S/P/Bld) [Vol rate/Area] [place] Comment on above: Average GFR for 60-6 9 years old: 85 mL/min/1.73sq m Chronic Kidney Disease: <60 mL/min/1.73sq m Kidney failure: <15 mL/min/1.73sq m eGFR calculated using average adult body mass. Additional eGFR calculator available at: http://www.Pancetera.SolarNOW/multiple_crcl_2012.htm Glucose [Mass/Vol] 353 mg/dL High 70 - 99 mg/dL [place] Hematocrit (Bld) [Volume fraction] 47.2 % 40.7 - 50.3 % [place] Hemoglobin (Bld) [Mass/Vol] 15.6 g/dL 13 - 17 g/dL [place] Immature granulocytes (Bld) [#/Vol] 0.03 10*3/uL [place] Immature granulocytes (Bld) [#/Vol] 0 % 0 [place] INR Coag (PPP) [Relative time] 1.2 {INR} [place] Comment on above: Therapeutic Range: Moderate Anticoagulant Intensity: INR = 2.0-3.0 High Anticoagulant Intensity: INR = 2.5-3.5 Interpretation and review of laboratory results Abnormal [place] Lymphocytes (Bld) [#/Vol] 2.54 10*3/uL [place] Lymphocytes/100 WBC (Bld) 32 % 24 - 43 % [place] MCH (RBC) [Entitic mass] 28.5 pg 25.2 - 33.5 pg [place] MCHC (RBC) [Mass/Vol] 33.1 g/dL 28.4 - 34.8 g/dL [place] MCV (RBC) [Entitic vol] 86.1 fL 82.6 - 102.9 fL [place] Monocytes (Bld) [#/Vol] 0.69 10*3/uL [place] Monocytes/100 WBC (Bld) 9 % 3 - 12 % [place] Myoglobin [Mass/Vol] 24 ng/mL Low 28 - 72 ng/mL [place], [place] Platelet mean volume (Bld) [Entitic vol] 11.3 fL 8.1 - 13.5 fL [place] Platelets (Bld) [#/Vol] 201 10*3/uL [place] Platelets (Bld) [#/Vol] NOT REPORTED [place] Potassium [Moles/Vol] 4.1 mmol/L 3.7 - 5.3 mmol/L [place] PT Coag (PPP) [Time] 12.1 s High [place] RBC (Bld) [#/Vol] 5.48 10*6/uL 4.21 - 5.7 7 m/uL [place] RBC morphology finding Nom (Bld) NOT REPORTED [place] Segmented neutrophils/100 WBC (Bld) 52 % 36 - 65 % [place] Segs Absolute 4.20 [place], [place] Sodium [Moles/Vol] 135 mmol/L 135 - 144 mmol/L [place] Total CK 138 U/L 39 - 308 U/L [place] Troponin I.cardiac [Mass/Vol] NOT REPORTED [place] Troponin T.cardiac [Mass/Vol] NOT REPORTED <0.03 ng/mL [place] Troponin, High Sensitivity 17 ng/L 0 - 22 ng/L [place] Comment on above: High Sensitivity Troponin values cannot be compared with other Troponin methodologies. Patients with high levels of Biotin oral intake (i.e >5mg/day) may have falsely decreased Troponin levels. Samples collected within 8 hours of biotin intake may require additional information for diagnosis. Urea nitrogen [Mass/Vol] 8 mg/dL 8 - 23 mg/dL [place] WBC (Bld) [#/Vol] 0.0 10*3/uL 0.0 per 10 0 WBC [place] WBC (Bld) [#/Vol] 8.0 10*3/uL [place] WBC Morphology NOT REPORTED [place] Stroke Panelon 06-05-2019 % CKMB 2.4 % Normal 0.0-3.[address] [facility] Comment on above: Performed By: #### S TROKE #### [facility] [address] [place] [address] [phone] Jewel Inserter: Stas Irving MD Anion gap [Moles/Vol] 12 mmol/L Normal 9-17 [facility] Comment on above: Performed By: #### S TROKE #### [facility] [address] [place], [place] [phone] Jewel Inserter: Stas Irving MD Calcium [Mass/Vol] 9.7 mg/dL Normal 8.6-10.[address] [facility] Comment on above: Performed By: #### S TROKE #### [facility] [address] [place] [phone] Jewel Inserter: Stsa Irving MD Chloride [Moles/Vol] 98 mmol/L Normal 98-107 [facility] Comment on above: Performed By: #### S TOREYKE #### [address] [address] Jewel Inserter: Stas Irving MD CK [Catalytic activity/Vol] 138 U/L Normal 39-[address] [facility] Comment on above: Performed By: #### S TOREYKE #### [address] [address] Jewel Inserter: Stas Irving MD CK.MB [Mass/Vol] NORMAL ISOENZYME PATTERN Normal [facility] Comment on above: Performed By: #### S TOREYKE #### [address] [address] Jewel Inserter: Stas Irving MD CO2 [Moles/Vol] 25 mmol/L Normal 20-[address] [facility] Comment on above: Performed By: #### S TOREYKE #### [address] [address] Jewel Inserter: Stas Irving MD Creatinine [Mass/Vol] 0.83 mg/dL Normal 0.70-1.20 [facility] Comment on above: Performed By: #### S TOREYKE #### [address] [address] Jewel Inserter: Stas Irving MD GFR, Amer >60 Normal >60 [facility] Comment on above: Performed By: #### S TROKE #### [address] [address] Jewel Inserter: Stas Irving MD GFR,non Amer >60 Normal >60 [facility] Comment on above: Performed By: #### S TOREYKE #### [address] [address] Jewel Inserter: Stas Irving MD Glucose [Mass/Vol] 353 mg/dL High 70-[address] [facility] Comment on above: Performed By: #### S TOREYKE #### [facility] [place] [address] Jewel Inserter: Stas Irving MD Potassium [Moles/Vol] 4.1 mmol/L Normal 3.7-5.3 [facility] Comment on above: Performed By: #### S TOREYKE #### [facility] [address] [place] [address] Jewel Inserter: Stas Irving MD Sodium [Moles/Vol] 135 mmol/L Normal 135-[address] [facility] Comment on above: Performed By: #### S MAGDY #### [facility] [address] [place] [address] Jewel Inserter: Stas Irving MD Urea nitrogen [Mass/Vol] 8 mg/dL Normal 8-[address] [facility] Comment on above: Performed By: #### S MAGDY #### [address] [address] Jewel Inserter: Stas Irving MD (cont.) [facility] Comment on above: Result Comment: Aver age GFR for 60-69 years old: 85 mL/min/1.73sq m Chronic Kidney Disease: <60 mL/min/1.73sq m Kidney failure: <15 mL/min/1.73sq m eGFR calculated using average adult body mass. Additional eGFR calculator available at: http://www.Pancetera.com/multiple_crcl_2012.htm Performed By: #### S MAGDY #### [facility] [address] [place] [address] Jewel Inserter: Stas Irving MD CK-MB,Quantitative 3.3 ng/mL Normal <10.[address] [facility] Comment on above: Performed By: #### S MAGDY #### [facility] [address] [place] [address] Jewel Inserter: Stas Irving MD Myoglobin [Mass/Vol] 24 ng/mL Low 28-72 [facility] Comment on above: Performed By: #### S TOREYKE #### [facility] [address] [place] [address] Jewel Inserter: Stas Irving MD Troponin, High Sens 17 ng/L Normal 0-[address] [facility] Comment on above: Result Comment: High Sensitivity Troponin values cannot be compared with other Troponin methodologies. Patients with high levels of Biotin oral intake (i.e >5mg/day) may have falsely decreased Troponin levels. Samples collected within 8 hours of biotin intake may require additional information for diagnosis. Performed By: #### S MAGDY #### [facility] [address] [place] [address] Jewel Inserter: Stas Irving MD aPTT Coag (Bld) [Time] 26.4 s Normal 20.5-30.[address] [facility] Comment on above: Performed By: #### S MAGDY #### [facility] [address] [place] [address] Jewel Inserter: Stas Irving MD INR Coag (PPP) [Relative time] 1.2 {INR} Normal [facility] Comment on above: Result Comment: Therapeutic Range: Moderate Anticoagulant Intensity: INR = 2.0-3.0 High Anticoagulant Intensity: INR = 2.5-3.5 Performed By: #### S TOREYKE #### [facility] [address] [place] [phone] Jewel Inserter: Stas Irving MD PT Coag (PPP) [Time] 12.1 s High 9.0-12.0 [facility] Comment on above: Performed By: #### S TOREYKE #### [facility] [address] [place] [address] Jewel Inserter: Stas Irving MD Abs. Basophil 0.06 k/uL Normal 0.00-0.[address] [facility] Comment on above: Performed By: #### S MAGDY #### [place] [address] Jewel Inserter: Stas Irving MD Abs.Imm.Granulocyte 0.03 k/uL Normal 0.00-0.[address] [facility] Comment on above: Performed By: #### S MAGDY #### [place] [address] Jewel Inserter: Stas Irving MD Abs.Neutrophil (Seg) 4.20 k/uL Normal 1.50-8.10 [facility] Comment on above: Performed By: #### S MAGDY #### [place] [address] Jewel Inserter: Stas Irving MD Basophils/100 WBC (Bld) 1 % Normal 0-[address] [facility] Comment on above: Performed By: #### S MAGDY #### [place] [address] Jewel Inserter: Stas Irving MD Eosinophils (Bld) [#/Vol] 0.46 10*3/uL High 0.00-0.[address] [facility] Comment on above: Performed By: #### S MAGDY #### [place] [address] Jewel Inserter: Stas Irving MD Eosinophils/100 WBC (Bld) 6 % High 1-[address] [facility] Comment on above: Performed By: #### S MAGDY #### [place] [address] Jewel Inserter: Stas Irving MD Erythrocyte distribution width (RBC) [Ratio] 13.7 % Normal 11.8-14.[address] [facility] Comment on above: Performed By: #### S MAGDY #### [address] [address] Jewel Inserter: Stas Irving MD Hematocrit (Bld) [Volume fraction] 47.2 % Normal 40.7-50.[address] [facility] Comment on above: Performed By: #### S TROKE #### [address] [address] Jewel Inserter: Stas Irving MD Hemoglobin (Bld) [Mass/Vol] 15.6 g/dL Normal 13.0-17.[address] [facility] Comment on above: Performed By: #### S TROKE #### [address] [address] Jewel Inserter: Stas Irving MD Immature granulocytes (Bld) [#/Vol] 0 % Normal [address] [facility] Comment on above: Performed By: #### S TROKE #### [address] [address] Jewel Inserter: Stas Irving MD Lymphocytes (Bld) [#/Vol] 2.54 10*3/uL Normal 1.10-3.[address] [facility] Comment on above: Performed By: #### S TROKE #### [address] [address] Jewel Inserter: Stas Irving MD Lymphocytes/100 WBC (Bld) 32 % Normal 24-[address] [facility] Comment on above: Performed By: #### S TROKE #### [address] [address] Jewel Inserter: Stas Irving MD MCH (RBC) [Entitic mass] 28.5 pg Normal 25.2-33.[address] [facility] Comment on above: Performed By: #### S TROKE #### [address] [address] Jewel Inserter: Stas Irving MD MCHC (RBC) [Mass/Vol] 33.1 g/dL Normal 28.4-34.8 [facility] Comment on above: Performed By: #### S MAGDY #### [address] [address] Jewel Inserter: Stas Irving MD MCV (RBC) [Entitic vol] 86.1 fL Normal 82.6-102.[address] [facility] Comment on above: Performed By: #### S MAGDY #### [address] [address] Jewel Inserter: Stas Irving MD Monocytes (Bld) [#/Vol] 0.69 10*3/uL Normal 0.10-1.[address] [facility] Comment on above: Performed By: #### S MAGDY #### [place] [address] Jewel Inserter: Stas Irving MD Monocytes/100 WBC (Bld) 9 % Normal 3-[address] [facility] Comment on above: Performed By: #### S MAGDY #### [address] [address] Jewel Inserter: Stas Irving MD Neutrophil (Seg) 52 % Normal 36-65 [facility] Comment on above: Performed By: #### S MAGDY #### [place] [address] Jewel Inserter: Stas Irving MD NRBC Automated 0.0 per 100 WBC Normal 0.[address] [facility] Comment on above: Performed By: #### S MAGDY #### [address] [address] Jewel Inserter: Stas Irving MD Platelet mean volume (Bld) [Entitic vol] 11.3 fL Normal 8.1-13.[address] [facility] Comment on above: Performed By: #### S TROKE #### [address] [address] Jewel Inserter: Stas Irving MD Platelets (Bld) [#/Vol] 201 10*3/uL Normal 138-[address] [facility] Comment on above: Performed By: #### S TROKE #### [address] [address] Jewel Inserter: Stas Irving MD RBC (Bld) [#/Vol] 5.48 10*6/uL Normal 4.21-5.[address] [facility] Comment on above: Performed By: #### S TROKE #### [address] [address] Jewel Inserter: Stas Irving MD WBC (Bld) [#/Vol] 8.0 10*3/uL Normal 3.5-11.[address] [facility] Comment on above: Performed By: #### S TROKE #### [address] [address] Jewel Inserter: Stas Irving MD Auto Diff Performed NOT REPORTED Normal [facility] Comment on above: Performed By: #### S TROKE #### [address] [address] Jewel Inserter: Stas Irving MD BUN/CRE Ratio NOT REPORTED Normal 9-[address] [facility] Comment on above: Performed By: #### S TROKE #### [address] [address] Jewel Inserter: Stas Irving MD Platelets (Bld) [#/Vol] NOT REPORTED Normal [facility] Comment on above: Performed By: #### S TROKE #### [address] [address] Jewel Inserter: Stas Irving MD RBC morphology finding Nom (Bld) NOT REPORTED Normal [facility] Comment on above: Performed By: #### S TROKE #### [facility] [place] [address] Jewel Inserter: Stas Irving MD Staging: NOT REPORTED Normal [facility] Comment on above: Performed By: #### S TROKE #### [facility] [place] [address] Jewel Inserter: Stas Irving MD Troponin I.cardiac [Mass/Vol] NOT REPORTED Normal [facility] Comment on above: Performed By: #### S TROKE #### [facility] [address] [place] [address] Jewel Inserter: Stas Irving MD Troponin T.cardiac [Mass/Vol] NOT REPORTED Normal <0.[address] [facility] Comment on above: Performed By: #### S TROKE #### [facility] [address] [place] [address] Jewel Inserter: Stas Irving MD WBC Morphology NOT REPORTED Normal [facility] Comment on above: Performed By: #### S TROKE #### [facility] [address] [place] [address] Jewel Inserter: Stas Irving MD Venous Blood Gas, POCon 05-22 Wayne Test NOT REPORTED [facility], [place] aPTT Coag (Bld) [Time] NOT REPORTED [facility] [place], [place] FIO2 NOT REPORTED [facility], [place] HCO3, Venous 27.3 mmol/L 22 - 29 mmol/L [facility] [place] [place] Mode NOT REPORTED [facility] [place], [place] Negative Base Excess, Kody NOT REPORTED [facility] [place], [place] O2 Device/Flow/% NOT REPORTED [facility] [place], [place] Oxygen saturation in Blood 67 % 60 - 85 % [facility] [place] [place] pCO2, Kody 41.3 [facility] [place], [place] pH, Kody 7.428 [facility] [place], [place] pO2, Kody 33.8 [place], [place] POC pCO2 Temp NOT REPORTED mm Hg [facility] [place] POC pH Temp NOT REPORTED [place], [place] POC pO2 Temp NOT REPORTED mm Hg [place], [place] Positive Base Excess, Kody 3 [place], [place] Sample Site NOT REPORTED [place], [place] Total CO2, Venous 29 mmol/L 23 - 30 mmol/L [place], [place] XR CHEST PORTABLEon 06-05-20 XR CHEST [...] Goyal MD 06/05/[address] Final result Normal [facility] EXAMINATION: ONE XRAY VIEW OF THE CHEST 06/05/2019 9:01 pm COMPARISON: None. HISTORY: ORDERING SYSTEM PROVIDED HISTORY: CVA TECHNOLOGIST PROVIDED HISTORY: CVA Reason for Exam: stroke upright port FINDINGS: The lungs are without acute focal process. There is no effusion or pneumothorax. The cardiomediastinal silhouette is without acute process. The osseous structures are without acute process. [place], [place] Nav, Mhpn Incoming Radiant Results From [employer] - 06/05/2019 9:43 PM EDT EXAMINATION: ONE [...] without acute process. IMPRESSION: No acute process. [place], [place] No acute process. [facility] [place] Vital Signs Date Time Vital Sign Value Performing Clinician Facility 04-09-2025 10:09-0400 Body height 182.9 cm Adilson Salazar MD Work Phone: [facility] 04-09-2025 10:09-0400 Body mass index (BMI) [Ratio] 30.65 kg/m2 Adilson Salazar MD Work Phone: [facility] 04-09-2025 10:09-0400 Body temperature 96.21 [degF] Adilson Salaazr MD Work Phone: [facility] 04-09-2025 10:09-0400 Body weight 102.51 kg Adilson Salazar MD Work Phone: [facility] 04-09-2025 10:09-0400 Diastolic blood pressure 82 mm[Hg] Adilson Salazar MD Work Phone: [facility] 04-09-2025 10:09-0400 Heart rate 84 /min Adilson Salazar MD Work Phone: [facility] 04-09-2025 10:09-0400 Respiratory rate 20 /min Adilson Salazar MD Work Phone: [facility] 04-09-2025 10:09-0400 SaO2% (BldA) [Mass fraction] 98 % Adilson Salazar MD Work Phone: [facility] 04-09-2025 10:09-0400 Systolic blood pressure 158 mm[Hg] Adilson Salazar MD Work Phone: [facility] 01-16-2025 13:24-0400 Body height 182.9 cm Adilson Salazar MD Work Phone: [facility] 01-16-2025 13:24-0400 Body mass index (BMI) [Ratio] 31.33 kg/m2 Adilson Salazar MD Work Phone: [facility] 01-16-2025 13:24-0400 Body temperature 97.11 [degF] Adilson Salazar MD Work Phone: [facility] 01-16-2025 13:24-0400 Body weight 104.78 kg Adilson Salazar MD Work Phone: [facility] 01-16-2025 13:24-0400 Diastolic blood pressure 84 mm[Hg] Adilson Salazar MD Work Phone: [facility] 01-16-2025 13:24-0400 Heart rate 81 /min Adilson Salazar MD Work Phone: [facility] 01-16-2025 13:24-0400 Respiratory rate 18 /min Adilson Salazar MD Work Phone: [facility] 01-16-2025 13:24-0400 SaO2% (BldA) [Mass fraction] 97 % Adilson Salazar MD Work Phone: [facility] 01-16-2025 13:24-0400 Systolic blood pressure 168 mm[Hg] Adilson Salazar MD Work Phone: [facility] 10-16-2024 14:40-0500 Body mass index (BMI) [Ratio] 31.38 kg/m2 Adilson Salazar MD Work Phone: [facility] 10-16-2024 14:40-0500 Body temperature 98.1 [degF] Adilson Salazar MD Work Phone: [facility] 10-16-2024 14:40-0500 Body weight 104.96 kg Adilson Salazar MD Work Phone: [facility] 10-16-2024 14:40-0500 Diastolic blood pressure 78 mm[Hg] Adilson Salazar MD Work Phone: [facility] 10-16-2024 14:40-0500 Heart rate 79 /min Adilson Salazar MD Work Phone: [facility] 10-16-2024 14:40-0500 SaO2% (BldA) [Mass fraction] 96 % Adilson Salazar MD Work Phone: [facility] 10-16-2024 14:40-0500 Systolic blood pressure 152 mm[Hg] Adilson Salazar MD Work Phone: [facility] 07-02-2024 14:25-0500 Body height 182.9 cm Adilson Salazar MD Work Phone: [facility] 07-02-2024 14:25-0500 Body mass index (BMI) [Ratio] 33.23 kg/m2 Adilson Salazar MD Work Phone: [facility] 07-02-2024 14:25-0500 Body temperature 96.21 [degF] Adilson Salazar MD Work Phone: [facility] 07-02-2024 14:25-0500 Body weight 111.13 kg Adilson Salazar MD Work Phone: [facility] 07-02-2024 14:25-0500 Diastolic blood pressure 98 mm[Hg] Adilson Salazar MD Work Phone: [facility] 07-02-2024 14:25-0500 Heart rate 91 /min Adilson Salazar MD Work Phone: [facility] 07-02-2024 14:25-0500 Respiratory rate 20 /min Adilson Salazar MD Work Phone: [facility] 07-02-2024 14:25-0500 SaO2% (BldA) [Mass fraction] 95 % Adilson Salazar MD Work Phone: [facility] 07-02-2024 14:25-0500 Systolic blood pressure 200 mm[Hg] Adilson Salazar MD Work Phone: [facility] 05-18-2024 10:12-0400 Body height 182.9 cm Adilson Salazar MD Work Phone: [facility] 05-18-2024 10:12-0400 Body mass index (BMI) [Ratio] 31.46 kg/m2 Adilson Salazar MD Work Phone: [facility] 05-18-2024 10:12-0400 Body temperature 96.6 [degF] Adilson Salazar MD Work Phone: [facility] 05-18-2024 10:12-0400 Body weight 105.23 kg Adilson Salazar MD Work Phone: [facility] 05-18-2024 10:12-0400 Diastolic blood pressure 74 mm[Hg] Adilson Salazar MD Work Phone: [facility] 05-18-2024 10:12-0400 Heart rate 90 /min Adilson Salazar MD Work Phone: [facility] 05-18-2024 10:12-0400 Respiratory rate 18 /min Adilson Salazar MD Work Phone: [facility] 05-18-2024 10:12-0400 SaO2% (BldA) [Mass fraction] 95 % Adilson Salazar MD Work Phone: [facility] 05-18-2024 10:12-0400 Systolic blood pressure 136 mm[Hg] Adilson Salazar MD Work Phone: [facility] 05-02-2024 13:17-0400 Body height 182.9 cm Adilson Salazar MD Work Phone: [facility] 05-02-2024 13:17-0400 Body mass index (BMI) [Ratio] 33.63 kg/m2 Adilson Salazar MD Work Phone: [facility] 05-02-2024 13:17-0400 Body temperature 97.5 [degF] Adilson Salazar MD Work Phone: [facility] 05-02-2024 13:17-0400 Body weight 112.49 kg Adilson Salazar MD Work Phone: [facility] 05-02-2024 13:17-0400 Diastolic blood pressure 64 mm[Hg] Adilson Salazar MD Work Phone: [facility] 05-02-2024 13:17-0400 Heart rate 78 /min Adilson Salazar MD Work Phone: [facility] 05-02-2024 13:17-0400 Respiratory rate 20 /min Adilson Salazar MD Work Phone: [facility] 05-02-2024 13:17-0400 SaO2% (BldA) [Mass fraction] 96 % Adilson Salazar MD Work Phone: [facility] 05-02-2024 13:17-0400 Systolic blood pressure 170 mm[Hg] Adilson Salazar MD Work Phone: [facility] 02-02-2023 10:20-0400 Blood Pressure Location Milvia Lue [facility] 02-02-2023 10:20-0400 Diastolic blood pressure 82 mm[Hg] Milvia Lue [facility] 02-02-2023 10:20-0400 Heart rate 72 /min Milvia Lue [facility] 02-02-2023 10:20-0400 Systolic blood pressure 132 mm[Hg] Milvia Lue [facility] 11-03-2022 08:12-0400 Blood Pressure Location Milvia Lue [facility] 11-03-2022 08:12-0400 Diastolic blood pressure 81 mm[Hg] Milvia Lue [facility] 11-03-2022 08:12-0400 Heart rate 77 /min Milvia Lue [facility] 11-03-2022 08:12-0400 Systolic blood pressure 131 mm[Hg] Milvia Lue [facility] 08-04-2022 08:56-0500 Blood Pressure Location Milvia Lue [facility] 08-04-2022 08:56-0500 Diastolic blood pressure 90 mm[Hg] Milvia Lue [facility] 08-04-2022 08:56-0500 Heart rate 78 /min Milvia Lue [facility] 08-04-2022 08:56-0500 Respiratory rate 16 /min Milvia Lue [facility] 08-04-2022 08:56-0500 Systolic blood pressure 140 mm[Hg] [facility] L[facility] 07-06-2022 17:09-0500 Body temperature 97.88 [degF] Milvia Lue [facility] 07-06-2022 17:09-0500 Diastolic blood pressure 88 mm[Hg] Milvia Lue [facility] 07-06-2022 17:09-0500 Heart rate 80 /min Milvia Lue [facility] 07-06-2022 17:09-0500 Mean blood pressure 114 mm[Hg] Milvia Lue [facility] 07-06-2022 17:09-0500 Respiratory rate 16 /min Milvia Lue [facility] 07-06-2022 17:09-0500 SaO2% (BldA) [Mass fraction] 98 % Milvia Lue [facility] 07-06-2022 17:09-0500 Systolic blood pressure 165 mm[Hg] Milvia Lue [facility] 07-06-2022 16:24-0500 Blood Pressure Location Milvia Lue [facility] 07-06-2022 16:24-0500 Body temperature 97.88 [degF] Milvia Lue [facility] 07-06-2022 16:24-0500 Diastolic blood pressure 98 mm[Hg] Milvia Lue [facility] 07-06-2022 16:24-0500 Heart rate 76 /min Milvia Lue [facility] 07-06-2022 16:24-0500 Mean blood pressure 122 mm[Hg] Milvia Lue [facility] 07-06-2022 16:24-0500 SaO2% (BldA) [Mass fraction] 96 % Milvia Lue [facility] 07-06-2022 16:24-0500 Systolic blood pressure 169 mm[Hg] Milvia Lue [facility] 07-06-2022 16:16-0500 Blood Pressure Location Milvia Lue [facility] 07-06-2022 16:16-0500 Body temperature 97.52 [degF] Milvia Lue [facility] 07-06-2022 16:16-0500 Diastolic blood pressure 105 mm[Hg] Milvia Lue [facility] 07-06-2022 16:16-0500 Heart rate 82 /min Milvia Lue [facility] 07-06-2022 16:16-0500 Respiratory rate 16 /min Milvia Lue [facility] 07-06-2022 16:16-0500 SaO2% (BldA) [Mass fraction] 98 % Milvia Lue [facility] 07-06-2022 16:16-0500 Systolic blood pressure 159 mm[Hg] Milvia Lue [facility] 07-06-2022 16:03-0500 Blood Pressure Location Milvia Lue [facility] 07-06-2022 16:03-0500 Respiratory rate 12 /min Milvia Lue [facility] 07-06-2022 15:58-0500 Respiratory rate 17 /min Milvia Lue [facility] 07-06-2022 15:48-0500 Body temperature 97.7 [degF] Milvia Lue [facility] 07-06-2022 10:40-0500 Mean blood pressure 106 mm[Hg] Milvia Lue [facility] 07-06-2022 10:40-0500 Heart rate 80 /min Milvia Lue [facility] 07-06-2022 10:39-0500 Body temperature 98.78 [degF] Milvia Lue [facility] 07-06-2022 10:39-0500 Mean blood pressure 113 mm[Hg] Milvia Lue [facility] 07-06-2022 10:39-0500 Respiratory rate 20 /min Milvia Lue [facility] 06-30-2022 17:30-0500 Blood Pressure Location Milvia Lue [facility] 06-30-2022 17:30-0500 BP/Pulse Patient Position Milvia Lue [facility] 06-30-2022 17:30-0500 Diastolic blood pressure 84 mm[Hg] Milvia Lue [facility] 06-30-2022 17:30-0500 Systolic blood pressure 175 mm[Hg] Milvia Lue [facility] 06-30-2022 17:22-0500 Blood Pressure Location Milvia Lue [facility] 06-30-2022 17:22-0500 Diastolic blood pressure 96 mm[Hg] Milvia Lue [facility] 06-30-2022 17:22-0500 Heart rate 67 /min Milvia Lue [facility] 06-30-2022 17:22-0500 Mean blood pressure 125 mm[Hg] Milvia Lue [facility] 06-30-2022 17:22-0500 Systolic blood pressure 185 mm[Hg] Milvia Lue [facility] 06-30-2022 16:53-0500 Blood Pressure Location Milvia Lue [facility] 06-30-2022 16:53-0500 Body temperature 98.96 [degF] Milvia Lue [facility] 06-30-2022 16:53-0500 BP/Pulse Patient Position Milvia Lue [facility] 06-30-2022 16:53-0500 Diastolic blood pressure 96 mm[Hg] Milvia Lue [facility] 06-30-2022 16:53-0500 Heart rate 76 /min Milvia Lue [facility] 06-30-2022 16:53-0500 Mean blood pressure 124 mm[Hg] Milvia Lue [facility] 06-30-2022 16:53-0500 Respiratory rate 18 /min Milvia Lue [facility] 06-30-2022 16:53-0500 Systolic blood pressure 180 mm[Hg] Milvia Lue [facility] 06-30-2022 16:52-0500 BP/Pulse Patient Position Milvia Lue [facility] 06-30-2022 16:52-0500 Heart rate 79 /min Milvia Lue [facility] 06-30-2022 16:52-0500 Mean blood pressure 124 mm[Hg] Milvia Lue [facility] 06-30-2022 16:52-0500 SaO2% (BldA) [Mass fraction] 98 % Milvia Lue [facility] 06-25-2022 15:25-0400 Blood Pressure Location [facility] [place] 06-25-2022 15:25-0400 Diastolic blood pressure 86 mm[Hg] [facility] [place] 06-25-2022 15:25-0400 Heart rate 72 /min Curtis N[facility] 06-25-2022 15:25-0400 Respiratory rate 16 /min [facility] [place] 06-25-2022 15:25-0400 Systolic blood pressure 142 mm[Hg] [facility] [place] 06-02-2022 09:21-0400 Blood Pressure Location Milvia Lue [facility] 06-02-2022 09:21-0400 Diastolic blood pressure 86 mm[Hg] Milvia Lue [facility] 06-02-2022 09:21-0400 Heart rate 72 /min Milvia Lue [facility] 06-02-2022 09:21-0400 Systolic blood pressure 140 mm[Hg] [facility] L[facility] 05-26-2022 07:25-0400 Body height 182.88 cm MD Adilson Salazar Work Phone: [facility] 05-26-2022 07:25-0400 Body weight 98.88 kg MD Adilson Salazar Work Phone: [facility] 04-21-2022 11:39-0400 Respiratory rate 16 /min Milvia Lue [facility] 06-09-2019 11:39-0400 Body Temperature 98.29 [degF] [place], [place] 06-09-2019 11:39-0400 BP Diastolic 79 mm[Hg] [place], [place] 06-09-2019 11:39-0400 BP Systolic 134 mm[Hg] [place], [place] 06-09-2019 11:39-0400 Pulse (Heart Rate) 84 /min [place], [place] 06-09-2019 11:39-0400 Pulse Oximetry 95 % [place] 06-09-2019 11:39-0400 Respiratory Rate 20 /min [place] 06-05-2019 20:48-0400 BMI (Body Mass Index) 29.84 kg/m2 [place], [place] 06-05-2019 20:48-0400 Body weight 99.79 kg [place], [place] 06-05-2019 20:48-0400 Height 182.9 cm [place] Encounters Encounter Date Encounter Type Care [...] failure with improved ejection fraction (HFimpEF) ([facility]); Coronary artery disease involving stebbins coronary artery of stebbins heart without angina pectoris Start: 04-09-2025 End: 04-09-2025 ambulatory ADILSON SALAZAR Not Available Start: 04-08-2025 End: 04-08-[address] [facility] Start: 03-25-2025 End: 03-25-2025 ambulatory [facility] Start: 03-04-[address] [facility] Start: 01-16-2025 End: 01-16-2025 Bamboo Appsidejac Salazar MD Work Phone: [facility] Start: 01-16-2025 End: 01-16-2025 Bamboo Appsidejac Salazar MD Work Phone: [facility] Start: 01-16-2025 End: 01-16-2025 Office outpatient visit 25 minutes Adilson Salazar MD Work Phone: [facility] Comment on above: Essential hypertensi on, benign (CMS/HCC) (Primary Dx); Type 2 diabetes mellitus with hyperglycemia, with long-term current use of insulin (CMS/HCC); Heart failure with improved ejection fraction (HFimpEF) (CMS/HCC); Coronary artery disease involving stebbins coronary artery of stebbins heart without angina pectoris (CMS/HCC); Acute non-recurrent pansinusitis Start: 01-16-2025 End: 01-16-2025 ambulatory ADILSON NADERER Not Available Start: 11-12-2024 End: 11-12-2024 Clinisync Result Encounter Adilson Salazar MD Work Phone: [facility] Unsolicited Start: 11-12-2024 End: 11-12-2024 Clinisync Result Encounter Adilson Salazar MD Work Phone: [facility] Unsolicited Start: 10-29-2024 End: 10-29-2024 ambulatory SILVANO FONTAINEGERALD [facility] Start: 10-16-2024 End: 10-16-2024 Transitional care [...] Not Available Start: 10-15-2024 End: 10-15-2024 ambulatory [facility] Start: 09-30-2024 End: 10-02-2024 Clinisync Result Encounter Generic External Data Provider [facility] Unsolicited Start: 09-30-2024 End: 10-02-2024 Clinisync Result Encounter Generic External Data Provider [facility] Unsolicited Start: 08-07-2024 End: 08-07-[address] [facility] Start: 07-24-2024 ambulatory FIRAS [facility] Start: 07-02-2024 End: 07-02-2024 Office outpatient visit 25 minutes Adilson Salazar MD Work Phone: [facility] Comment on above: Type 2 diabetes thomas itus with hyperglycemia, with long-term current use of insulin (CMS/HCC) (Primary Dx); Essential hypertension, benign (CMS/HCC); Heart failure with improved ejection fraction (HFimpEF) ([facility]); Coronary artery disease involving stebbins coronary artery of stebbins heart without angina pectoris (CMS/HCC) Start: 07-02-2024 End: 07-02-2024 ambulatory ADILSON SALAZAR Not Available Start: 07-02-2024 End: 07-02-2024 Bamboo flowsheet Adilson Salazar MD Work Phone: [facility] Start: 07-02-2024 End: 07-02-2024 Bamboo flowsheet Adilson Salazar MD Work Phone: [facility] Start: 06-01-2024 End: 06-01-2024 ambulatory [facility] Start: 05-18-2024 End: 05-18-2024 Bamboo flowsheet [...] infectious organism; NSTEMI (non-ST elevated myocardial infarction) ([facility]/HCC); Coronary artery disease involving stebbins coronary artery of stebbins heart without angina pectoris (CMS/HCC); Type 2 [...] failure with i mproved ejection fraction (HFimpEF) ([facility]) (Primary Dx); Type 2 diabetes mellitus with hyperglycemia, with long-term current use of insulin ([facility]); Coronary artery disease involving stebbins coronary artery of stebbins heart without angina pectoris ([facility]); Essential hypertension, benign (CMS/HCC); Bilateral impacted cerumen [...] encounter procedure Milvia Palomo [facility] Start: 11-17-2022 End: 11-17-[address] ADILSON SALAZAR Facility:[facility] Start: 11-03-2022 End: 11-04-2022 ambulatory Milvia Palomo Facility:[facility] Start: 11-03-2022 End: 11-03-2022 Patient encounter procedure Milvia Palomo [facility] Start: 10-25-2022 End: 10-26-2022 ambulatory MILVIA PALOMO Facility:[facility] Start: 10-12-2022 ambulatory Daniel Quinton Jacobsen ty:[facility] Start: 10-06-2022 End: 10-07-2022 ambulatory Milvia Palomo Facility:[facility] Start: 10-06-2022 End: 10-06-2022 Patient encounter procedure Milvia Palomo [facility] Start: 09-22-2022 End: 09-22-2022 ambulatory Adilson Salazar Facility:[facility] Start: 09-20-2022 End: 09-20-2022 ambulatory MD Adilson Salazar Work Phone: [facility] Work Phone: Start: 09-20-2022 End: 09-20-2022 Patient encounter procedure MD Adilson Salazar Work Phone: [facility] Work Phone: Start: 08-06-2022 End: 08-07-[address] CURTIS Osullivan Facility:[facility] Start: 08-04-2022 End: 08-05-2022 ambulatory Milvia Palomo Facility:[facility] [place] Start: 08-04-2022 End: 08-04-2022 Patient encounter procedure Milvia Palomo [facility] Start: 08-03-2022 ambulatory Curtis GRACIA Facility :[facility] Start: 07-21-2022 Encounter for preprocedural laboratory examination DR CURTIS GRACIA . [facility] Start: 07-21-2022 End: 07-22-[address] CURTIS GRACIA . Facility: Start: 07-17-2022 End: 07-18-[address] CURTIS GRACIA . Facility: Start: 07-17-2022 End: 07-18-2022 Encounter for preprocedural laboratory examination DR CURTIS GRACIA . Facility: Start: 07-06-2022 End: 07-06-2022 ambulatory Milvia Palomo Facility:[facility] Start: 07-06-2022 End: 07-06-2022 Admission to same day surgery center Milvia Palomo [facility] Start: 06-30-2022 End: 07-01-2022 ambulatory Milvia Palomo Facility:[facility] Start: 06-30-2022 End: 06-30-2022 Patient encounter procedure Milvia Palomo [facility] Start: 06-29-2022 End: 09-28-2022 ambulatory Milvia Palomo Facility:[facility] Start: 06-25-2022 End: 06-26-2022 ambulatory Curtis GRACIA Facility:[facility] Start: 06-25-2022 End: 06-25-2022 Patient encounter procedure Curtis GRACIA General Surgery Nill/[facility] Start: 06-15-2022 End: 06-16-[address] ADILSON SALAZAR Facility: Start: 06-07-2022 End: 06-07-[address] ADILSON SALAZAR Facility: Start: 06-04-2022 ambulatory Daniel BAEZA Facility :[facility] Start: 06-03-2022 End: 09-27-2022 Recurring Milvia Palomo [facility] Start: 06-02-2022 End: 06-03-2022 ambulatory Milvia Khari Palomo Facility:[facility] Start: 06-02-2022 End: 06-30-2022 Pre-admission assessment Milvia Palomo [facility] Start: 06-02-2022 End: 06-02-2022 Patient encounter procedure Milvia Palomo [facility] Start: 05-26-2022 End: 05-26-2022 ambulatory MD Adilson Salazar Work Phone: [facility] Work Phone: Start: 05-26-2022 End: 05-26-2022 Patient encounter procedure MD Adilson Salazar Work Phone: [facility] [place] Start: 04-21-2022 End: 04-22-2022 ambulatory Milvia FordAbran Danieljosiah Facility:[facility] Start: 04-21-2022 End: 04-21-2022 Patient encounter procedure Milvia PowersAbran Dewey [facility] Start: 01-26-2022 End: 01-27-[address] ADILSON SALAZAR Facility: Start: 06-05-2019 End: 06-09-2019 Evaluation and management of inpatient [facility] Start: 06-05-2019 End: 06-09-2019 Evaluation and management of inpatient Anselmo Garza Work Phone: [facility] 5C Neuro Comment on above: Cerebrovascular acci dent (CVA), unspecified mechanism (HCC) (Primary Dx) Procedures Date Procedure Procedure Detail Performing Clinician Start: 11-12-2024 [facility] MICROALB CREAT R ATIO RANDOM Adilson Salazar MD Work Phone: Start: 09-30-2024 BLOOD CULTURE 1 Generic External Data Provider Start: 05-09-2024 BLOOD CULTURE 1 Generic External Data Provider Start: 09-29-2023 MLR HEMOGLOBIN A1C Adilson Salazar MD Work Phone: Start: 09-20-2022 Positron emission tomography MD Adilson Salazar Work Phone: Start: 07-21-2022 Colonoscopy dAilson munoz MD Work Phone: Start: 07-06-2022 Biopsy of prostate Salud Palomo Start: 01-26-[address] ADILSON PEARSON Comment on above: Performed By: #### P TT, PT #### [facility] [address] [place] [address] Dr. Marcell Luque Start: 09-08-2020 Transrectal biopsy [...] 06-07-2019 WOUND CARE OSCAR HARP Start: 06-07-2019 CONSULTING SERVICES ASSOCIATE REPORT OSCAR BR SUSHILA Start: 06-07-2019 Glucose blood reagent strip Oscar Harp Work Phone: Start: 06-07-2019 CONSULTING SERVICES ASSOCIATE REPORT Hpf Sca nning Start: 06-07-2019 VERIFY [...] OSCAR HARP Start: 06-07-2019 INCENTIVE SPIROMETRY RT OCSAR HARP Start: 06-07-2019 Glucose blood reagent strip OSCAR HARP Start: 06-07-2019 Glucose blood reagent strip Oscar Harp Work Phone: Start: 06-07-2019 Assay of magnesium OSCAR HARP Start: 06-07-2019 Assay of phosphorus inorganic OSCAR HARP Start: 06-07-2019 Basic metabolic pane l calcium total OSCAR HARP Start: 06-07-2019 Blood count complete auto&auto difrntl wbc OSCRA HARP Start: 06-07-2019 HOME BIPAP OR CPAP [...] AL VTE PROPHYLAXIS OSCAR HARP Start: 06-06-2019 GAS OPERATOR EVAL AND TREAT [facility]SCAR HARP Start: [...] Ct head/brain w/o co ntrast material [employer] Work Phone: Start: 06-05-2019 Radiologic exam ches [...] Phone: Start: 06-05-2019 Chloride [Moles/Vol] Wi cecil Rantoul Work Phone: Start: 06-05-2019 CREATININE W/GFR POI NT OF CARE Anselmo Garza Work Phone: Start: 06-05-2019 Gluc bld gluc mntr d ev cleared fda spec home use Anselmo Garza Work Phone: Start: 06-05-2019 LACTIC ACID,POINT OF CARE Anselmo Garza Work Phone: Start: 06-05-2019 Potassium [Moles/Vol] W illadriana Garza Work Phone: Start: 06-05-2019 Sodium [Moles/Vol] [...] 07-21-2032 Screening for malignant neoplasm of colon [facility] Start: 11-12-2025 Urine screening for protein Diabetes: Urine Protein Screening [facility] Start: 07-10-2025 End: 07-10-2025 Patient encounter procedure 07/10/2025 9:30 AM EST Office Visit [facility] [address] [place] [phone] Adilson Salazar MD [address] [place] [phone] [facility] Start: 05-12-2025 Hemoglobin A1c measurement Diabetes: Hemoglobin A1C [facility] Start: 04-22-2025 Influenza vaccination [facility] Start: 04-18-2025 End: 04-18-2025 Patient encounter procedure 04/18/2025 2:15 PM EDT Office Visit [facility] [address] [place] [phone] Adilson Salazar MD [address] [place] [phone] [facility] Start: 04-09-2025 End: 04-09-2026 Hemoglobin A1c/Hemoglobin.total in Blood Hemoglobin A1c Lab Routine Type 2 diabetes mellitus with hyperglycemia, with long-term current use of insulin (HCC) Expected: 04/09/2025 (Approximate), Expires: 04/09/2026 [facility] Work Phone: Comment on above: Expected: 04/09/2025 (Approximate), Expi res: 04/09/2026 Start: 04-09-2025 End: 04-09-2025 Patient encounter procedure 04/09/2025 10:00 AM EDT Office Visit [facility] [address] [place] [phone] Adilson Salazar MD [address] [place] [phone] Arrived [facility] Comment on above: Arrived Start: 03-13-2025 Urine screening for protein Diabetes: Urine Protein Screening [facility] Start: 01-16-2025 End: 01-16-2025 [facility] Comment on above: Arrived Start: 10-16-2024 End: 10-16-2024 Patient encounter procedure 10/16/2024 2:30 PM EST Office Visit [facility] [address] [place] [phone] Adilson Salazar MD [address] [place] [phone] [facility] Comment on above: Arrived Start: 10-16-2024 End: 10-16-2025 Hemoglobin A1c/Hemoglobin.total in Blood Hemoglobin A1c Lab Routine Type 2 diabetes mellitus with hyperglycemia, with long-term current use of insulin ([facility]) Expected: 10/16/2024 (Approximate), Expires: 10/16/2025 [facility] Comment on above: Expected: 10/16/2024 (Approximate), Expi res: 10/16/2025 Start: 10-16-2024 End: 10-16-2025 Microalbumin/Creatinine panel in random Urine Microalbumin / creatinine, urine ratio Lab Routine Type 2 diabetes mellitus with hyperglycemia, with long-term current use of insulin ([facility]) Expected: 10/16/2024 (Approximate), Expires: 10/16/2025 [facility] Work Phone: Comment on above: Expected: 10/16/2024 (Approximate), Expi res: 10/16/2025 Start: 10-02-2024 End: 10-02-2024 Patient encounter procedure 10/02/2024 1:30 PM EST Office Visit [facility] [address] [place] [address] Adilson Salazar MD [address] [place] [phone] [facility] Start: 09-14-2024 Hemoglobin A1c measurement Diabetes: Hemoglobin A1C [facility] Start: 07-02-2024 End: 07-02-2024 Patient encounter procedure 07/02/2024 2:30 PM EST Office Visit [facility] [address] [place] [address] Adilson Salazar MD [address] [place] [phone] [facility] Start: 07-02-2024 End: 07-02-2025 Hemoglobin A1c/Hemoglobin.total in Blood Hemoglobin A1c Lab Routine Type 2 diabetes mellitus with hyperglycemia, with long-term current use of insulin ([facility]) Expected: 07/02/2024 (Approximate), Expires: 07/02/2025 [facility] Work Phone: Comment on above: Expected: 07/02/2024 (Approximate), Expi res: 07/02/2025 Start: 06-17-2024 Urine screening for protein Diabetes: Urine Protein Screening [facility] Start: 06-14-2024 Hemoglobin A1c measurement Diabetes: Hemoglobin A1C [facility] Start: 05-18-2024 End: 05-18-2024 Patient encounter procedure [facility] Comment on above: Arrived Start: 04-22-2024 Influenza vaccination Influenza Vaccine (#1) [facility] Start: 12-29-2023 End: 12-29-2023 Patient encounter procedure 12/29/2023 11:15 AM EDT Office Visit [facility] [address] [place] [phone] Adilson Salazar MD [address] [place] [phone] [facility] Start: 09-17-2023 Hemoglobin A1c measurement Diabetes: Hemoglobin A1C [facility] Start: 04-22-2023 Influenza vaccination Influenza Vaccine (#1) [facility] Start: 05-26-2022 MR Prostate WO and W contrast IV [facility] Start: 05-26-2022 MR prostate wo/w con MR prostate wo/w con [facility] Start: 06-08-2020 Creatinine monitoring Creatinine monitoring [place], [place] Start: 06-08-2020 Potassium monitoring Potassium monitoring [place], [place] Start: 06-06-2020 Lipid screen Lipid screen [place], [place] Start: 09-06-2019 A1C test (Diabetic or Prediabetic) A1C test (Diabetic or Prediabetic) [place] Start: 06-05-2019 Annual Wellness Visit (AWV) Annual Wellness Visit (AWV) [place] Start: 04-22-2019 Influenza vaccination Flu vaccine (#1) [place] Start: 03-20-2014 Pneumococcal Vaccine: 65+ Years (2 - PCV) Pneumococcal Vaccine: 65+ Years (2 - PCV) [facility] Start: 03-20-2014 Pneumococcal Vaccine: 65+ Years (2 of 2 - PCV) Pneumococcal Vaccine: 65+ Years (2 of 2 - PCV) [facility] Start: 11-08-2005 Colon cancer screen colonoscopy Colon cancer screen colonoscopy [place], [place] Start: 11-08-2005 Shingles Vaccine (1 of 2) Shingles Vaccine (1 of 2) [place], [place] Start: 11-08-1974 DTaP/Tdap/Td vaccine (1 - Tdap) DTaP/Tdap/Td vaccine (1 - Tdap) [place], [place] Start: 11-08-1973 Diabetic microalbuminuria test Diabetic microalbuminuria test [place] Start: 11-08-1970 HIV screen HIV screen [place] Start: 11-08-1965 [object Object] Diabetic foot exam [place] Start: 11-08-1965 Diabetic retinal exam Diabetic retinal exam [place], [place] Start: 11-08-1965 Glaucoma screening Diabetes: Retinopathy Screening [facility] Start: 1955 Hepatitis C screen Hepatitis C screen [place], [place] Start: 1955 Screening for malignant neoplasm of colon [facility] End: 06-09-2019 ANTI-PHOSPHOLIPID AB ANTI-PHOSPHOLIPID AB Lab Routine One Time for 1 Occurrences starting 06/09/2019 until 06/09/2019 [place] Comment on above: One Time for 1 Occurrences starting 05/22 until 06/09/2019 ANTI-PHOSPHOLIPID AB ANTI-PHOSPH OLIPID AB Lab Routine 06/09/2019 9:41 AM EDT [place], [place] Basic metabolic 2000 panel Basic Metabolic Panel Lab Routine Daily until discontinued starting 06/07/2019, 3 completed [place] Comment on above: Daily until discontinued starting 2018, 3 completed BLOOD CULTURE 1 BLOOD CULTURE 1 Lab Routine 05/09/2024 10:39 AM EDT [facility] BLOOD CULTURE 1 BLOOD CULTURE 1 Lab Routine 09/30/2024 10:48 PM [facility] CBC Auto Differential CBC Auto D ifferential Lab Routine Daily until discontinued starting 06/07/2019, 3 completed [place] Comment on above: Daily until discontinued starting 2018, 3 completed End: 06-07-2019 Diagnostic Cardiac Powder Cutting Operator Procedure Diagnostic Cardiac Powder Cutting Operator Procedure Cardiac Cath Routine One Time for 1 Occurrences starting 06/07/2019 until 06/07/2019 [facility] [place] Comment on above: One Time for 1 Occurrences starting 05/22 until 06/07/2019 End: 06-09-2019 Dilute Deepak Viper Dilute Deepak Viper Lab Routine One Time for 1 Occurrences starting 06/09/2019 until 06/09/2019 [facility] [place] Comment on above: One Time for 1 Occurrences starting 05/22 until 06/09/2019 Dilute Deepak Viper Dilute Jaime ell Viper Lab Routine 06/09/2019 9:41 AM EDT [facility] [place] End: 06-09-2019 FACTOR 5 LEIDEN FACTOR 5 LEIDEN Lab Routine One Time for 1 Occurrences starting 06/09/2019 until 06/09/2019 [facility] [place] Comment on above: One Time for 1 Occurrences starting 05/22 until 06/09/2019 End: 06-09-2019 FACTOR 8 ASSAY FACTOR 8 ASSAY Lab Routine One Time for 1 Occurrences starting 06/09/2019 until 06/09/2019 [facility] [place] Comment on above: One Time for 1 Occurrences starting 05/22 until 06/09/2019 FACTOR 8 ASSAY FACTOR 8 ASSAY L ab Routine 06/09/2019 9:41 AM EDT [facility] Home BIPAP or CPAP Home BIPAP or CPAP Respiratory Care Routine Daily until discontinued starting 06/07/2019 [facility] [place] Comment on above: Daily until discontinued starting 2018 Incentive spirometry Incentive s pirometry Respiratory Care Routine Daily until discontinued starting 06/06/2019 [facility] [place] Comment on above: Daily until discontinued starting 2018 Initiate Oxygen Ther apy Protocol Initiate Oxygen Therapy Protocol Respiratory Care Routine Daily until discontinued starting 06/07/2019 [facility] [place] Comment on above: Daily until discontinued starting 2018 [facility] Comment on above: 4X Daily (AC & HS) until discontinued st arting 06/06/2019 As Needed until disc ontinued starting 06/06/2019 End: 06-09-2019 Protein C Functional Protein C Functional Lab Routine One Time for 1 Occurrences starting 06/09/2019 until 06/09/2019 [facility] [place] Comment on above: One Time for 1 Occurrences starting 05/22 until 06/09/2019 Protein C Functional Protein C F unctional Lab Routine 06/09/2019 9:41 AM EDT [facility] JOYCELYN End: 06-09-2019 Protein S Functional Protein S Functional Lab Routine One Time for 1 Occurrences starting 06/09/2019 until 06/09/2019 [facility] [place] Comment on above: One Time for 1 Occurrences starting 05/22 until 06/09/2019 Protein S Functional Protein S F unctional Lab Routine 06/09/2019 9:41 AM EDT [facility] End: 06-09-2019 Prothrombin Gene Mutation Prothrombin Gene Mutation Lab Routine One Time for 1 Occurrences starting 06/09/2019 until 06/09/2019 [facility] [place] Comment on above: One Time for 1 Occurrences starting 05/22 until 06/09/2019 End: 06-07-2019 Pulse oximetry, continuous Pulse oximetry, continuous Respiratory Care Routine Every 4hr for 24 Hours starting 06/06/2019 until 06/07/2019 [facility] [place] Comment on above: Every 4hr for 24 Hours starting 06/06/20 until 06/07/2019 Immunizations Immunization Date Immunization Notes Care Provider Tyra dailey 03-20-2013 pneumococcal polysaccharide vaccine, 23 valent Milvia Palomo [facility] Payers Date Payer Category Payer Unknown ALLIED BENEFIT S [employer] [id number] 2023-Present [address] [place] [id number] 2023 Unknown [id number] 2023 Private Health Insurance [id number] 2022 Self-pay [id number] 2018 Medicare MEDICARE MEDICAR E PART A AND B xxxxxxxxxxx 2018-Present [phone] [place] [address] xxxxxxxxxxx [id number] 1997 Medicare [id number] 1959 Medicare [id number] 1959 Unknown [id number] 1955 Unknown [id number] 2.16.840.1.775498.3.579.2 .175 1955 Unknown [id number] 2.16.840.1.912433.3.579.2 .593 1955 Unknown [id number] 2.16.840.1.412216.3.579.2 .593 1955 Unknown [id number] 2.16.840.1.586886.3.579.2 .593 1955 Unknown [id number] 2.16.840.1.496963.3.579.2 .593 1955 Unknown [id number] 2.16.840.1.223994.3.579.2 .593 1955 Unknown [id number] 2.16.840.1.393628.3.579.2 .593 1955 Unknown [id number] 2.16.840.1.992101.3.579.2 .593 1955 Unknown [id number] 2.16.840.1.746579.3.579.2 .593 1955 Unknown [id number] 2.16.840.1.661523.3.579.2 .727 1955 Unknown [id number] 2.16.840.1.431607.3.579.2 .727 1955 Unknown [id number] 2.16.840.1.497539.3.579.2 .1955 Unknown [id number] 2.16.840.1.946750.3.579.2 .72 1955 Unknown [id number] 2.16.840.1.723927.3.579.2 .1955 Unknown [id number] 2.16.840.1.236366.3.579.2 .1955 Unknown [id number] 2.16.840.1.421881.3.579.2 1955 Unknown [id number] 2.16.840.1.925234.3.579.2 .1955 Unknown [id number] 2.16.840.1.603284.3.579.2 .1955 Unknown [id number] 2.16.840.1.635603.3.579.2 .1955 Unknown [id number] 2.16.840.1.224316.3.579.2 .1955 Unknown [id number] 2.16.840.1.373950.3.579.2 .1955 Unknown [id number] 2.16.840.1.336255.3.579.2 .72 1955 Unknown [id number] 2.16.840.1.379581.3.579.2 .125 1955 Unknown [id number] 2.16.840.1.931568.3.579.2 .1258 1955 Unknown [id number] 2.16.840.1.159513.3.579.2 .1259 1955 Unknown [id number] 2.16.840.1.773876.3.579.2 .1259 1955 Unknown [id number] 2..840.1.764693.3.579.2 .1259 1955 Unknown [id number] 2.16.840.1.744884.3.579.2 .1259 Medicare Medicare Outpatient [id number] [id number] Private Health Insurance [facility] [id number] Unknown [id number] 2..840.1.939552.3.579.2 .531 Social History Date Type Detail Facility Start: 06-06-2019 End: 08-05-2023 Tobacco smoking status GAIS Never smoker [facility] Start: 06-06-2019 End: 04-09-2025 Alcohol intake Never [place] Start: 06-05-2019 History SDOH Alcohol Frequency 1 [place], [place] Start: 1955 Sex Assigned At Not on file [place] Tobacco smoking status Never [facility] Start: 06-25-2021 End: 08-04-2022 Tobacco smoking status GAIS Ex-smoker (finding) [facility] Start: 1955 Sex Assigned At Male F [facility] Start: 08-05-2023 Tobacco use and exposure Smokeless [...] the evening and 1 each before bedtime. [id number] Start: 09-26-2023 1 each in the morning and 1 each in the evening and 1 each before bedtime. [id number] Start: 09-26-2023 Functional Status Date Assessment Result Facility 02-02-2023 Functional Status N/A [facility] 11-03-2022 Functional Status N/A [facility] 10-06-2022 Functional Status N/A [facility] 08-04-2022 Functional Status N/A [facility] 06-30-2022 Functional Status No [facility] 06-25-2022 Functional Status N[facility] Functional Status N/A [facility] 04-21-2022 Functional Status N/A [facility] Clinical Notes 04-21-2022 to 04-09-2025 Adilson Salazar [...] PRN. Associated Problem(s): Coronary artery disease involving stebbins coronary artery of stebbins heart without angina pectoris Continue medication and follow with cardiology. Images from the original note were not included. Subjective Patient ID: Enuice Marte is a 69 y.o. male who [...] Orders Hemoglobin A1c Coronary artery disease involving stebbins coronary artery of stebbins heart without angina pectoris Continue medication and follow with cardiology. Heart failure with improved ejection fraction (HFimpEF) (HCC) Edema stable and continue medication. Mild persistent asthma without complication (HCC) Frequent cough and mild SOB. Resume inhaled steroid. Relevant Medications budesonide (Pulmicort Flexhaler) 180 MCG/ACT inhaler documented in this encounter [facility] 04-08-2025 Note aPATIENT: Eunice munoz DATE OF : 1955 DATE OF VISIT: 04/08/25 Urology Clinic H&P PHYLLIS ACOSTA M.D., F.A.C.S. 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 Eunice Marte is a 69 y.o. -[place] male with history of HTN, HLD, Diabetes Mellitus Type 2, Stroke (04/2015 resulted in right sided weakness since has improved), CAD, DE in 2021 on ASA 81mg s/p implantable [...] urologist Milvia Daniel MD on 07/06/2022 at [facility] for a total of 24 cores (12 systematic cores x2 and 4 cores obtained from MARÍA ELENA #1). Pathology per [facility] review revealed acinar adenocarcinoma of the prostate, Elbe 3+4= 7; GG 2 involving 2/13 in [...] distant metastatic disease. Decipher prostate biopsy genomic tool supervisor was obtained on prostate biopsy above, reported [...] nodule, cT2a. I reviewed and discussed outside marketing consultant note, outside laboratory tests, outside imaging including MRI prostate and PSMA, pathology result of prostate biopsy, and decipher score. Mr. Marte has unfavorable intermediate risk prostate cancer by NCCN criteria since he has 2 intermediate risk factors (PSA 11.09 ng/mL and GG2 prostate cancer), however, decipher genomic tool supervisor designate patient as a high risk with [...] per WHO cri (more content not included)... [facility] 03-25-2025 Note [facility] Cardiology - [facility] Subjective Eunice Marte is a 69 y.o. year old male patient being seen for a 6 month follow up. Patient states he is feeling pretty good. Patient denies chest pain, leg pain/swelling, heart racing/palpitations, dizziness/lightheaded and fatigue. He has no complaints of EASTON, SOB. Patient Active Problem List Diagnosis Prostate cancer ([facility]) Cerebrovascular accident (CVA) ([facility]) History of diabetes mellitus History of DVT (deep vein thrombosis) History of hypertension History of ischemic left MCA stroke Hypercholesterolemia Hypertension Partial seizure ([facility]) Type 2 diabetes mellitus without complication, with long-term current use of insulin ([facility]) Osteoarthritis of knee Malignant neoplasm of prostate ([facility]) NSTEMI (non-ST elevated myocardial infarction) ([facility] [place]) Chest pain BPH associated with nocturia Essential hypertension, benign Type 2 diabetes mellitus with hyperglycemia ([facility]) Vitamin D deficiency ALLISON on CPAP Acute anemia Chronic systolic heart failure ([facility] [place]) FPC (current) use of insulin ([facility] [place]) Mixed hyperlipidemia Elevated lipoprotein(a) Coronary artery disease involving stebbins coronary artery of stebbins heart without angina pectoris Dyshidrotic eczema Gastroesophageal reflux disease Heart failure with improved ejection fraction (HFimpEF) ([facility] [place]) Lateral rectus muscle paralysis, right Multi-infarct dementia, uncomplicated ([facility] [place]) Single subsegmental pulmonary embolism without acute cor pulmonale ([facility] [place]) Acute non-recurrent pansinusitis Acute non-ST segment elevation myocardial infarction ([facility] [place]) Diverticulitis Hypomagnesemia Family History Problem Relation Name [...] General: No fo (more content not included)... [facility] 01-16-2025 History of Present illness Narrative Associated Problem(s): Type 2 diabetes mellitus with hyperglycemia ([facility] [place]) Not checking BS and last A1C. Resume ozempic. Stick to ADA diet and limit carbs. Associated Problem(s): Heart failure with improved ejection fraction (HFimpEF) ([facility] [place]) Edema stable and continue medication. Associated Problem(s): Essential hypertension, benign ([facility] [place]) BP elevated but controlled at home and monitor PRN. Associated Problem(s): Coronary artery disease involving stebbins coronary artery of stebbins heart without angina pectoris ([facility] [place]) Continue medication and follow with cardiology. Associated [...] MG/1.5ML solution pen-injector Coronary artery disease involving stebbins coronary artery of stebbins heart without angina pectoris (CMS/HCC) Continue medication and follow with cardiology. Heart failure with improved ejection fraction (HFimpEF) ([facility] [place]) Edema stable and continue medication. Acute non-recurrent [...] 50 MG tablet documented in this encounter [facility] 10-29-2024 Note [facility] a [facility] Department of Radiation Oncology [address] [place] [address] RADIATION ONCOLOGY FOLLOW UP NOTE Date of [...] right sided weakness since has improved), CAD, DE in 2021 on ASA 81mg s/p implantable loop recorder, LE DVT (not on current anticoagulation), Asthma, ALLISON on CPAP, GERD, BPH, ED s/p placement of IPP in 2012), and a recent diagnosis of unfavorable intermediate risk prostate cancer. Patient presented with an elevated PSA a couple years ago, and has beenclosely monitored. Most recently, he had a [employer] genomic score testing, that yielded a high [...] on forearms b (more content not included)... [facility] 10-16-2024 History of Present illness Narrative Associated Problem(s): Heart failure with improved ejection fraction (HFimpEF) ([facility] [place]) Edema stable and continue medication. Associated Problem(s): Multi-infarct dementia, uncomplicated ([facility] [place]) Monitor. Associated Problem(s): Prostatic cancer (CMS/HCC) Follow [...] high fiber diet. documented in this encounter [facility] 10-15-2024 Note [facility] - [facility] Heart and Vascular Center Subjective Eunice Marte is a 68 y.o. year old male patient being seen for follow up [facility] follow up. 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 [facility] 08-07-2024 Note aPATIENT: Eunice noble DATE OF : 1955 DATE OF VISIT: 08/07/24 Urology Clinic H&P PHYLLIS ACOSTA M.D., F.A.C.S. 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 Eunice Marte is a 68 y.o. -[place] male with history of HTN, HLD, Diabetes Mellitus Type 2, Stroke (04/2015 resulted in right sided weakness since has improved), CAD, DE in 2021 on ASA 81mg s/p implantable [...] urologist Milvia Daniel MD on 07/06/2022 at [facility] for a total of 24 cores (12 systematic cores x2 and 4 cores obtained from MARÍA ELENA #1). Pathology per [facility] review revealed acinar adenocarcinoma of the prostate, Elbe 3+4= 7; GG 2 involving 2/13 in [...] distant metastatic disease. Decipher prostate biopsy genomic tool supervisor was obtained on prostate biopsy above, reported [...] nodule, cT2a. I reviewed and discussed outside marketing consultant note, outside laboratory tests, outside imaging including MRI prostate and PSMA, pathology result of prostate biopsy, and decipher score. Mr. Marte has unfavorable intermediate risk prostate cancer by NCCN criteria since he has 2 intermediate risk factors (PSA 11.09 ng/mL and GG2 prostate cancer), however, decipher genomic tool supervisor designate patient as a high risk with [...] bone mineral density (more content not included)... [facility] 07-02-2024 History of Present illness Narrative Associated [...] PRN. Associated Problem(s): Coronary artery disease involving stebbins coronary artery of stebbins heart without angina pectoris (CMS/HCC) Continue medication [...] Orders Hemoglobin A1c Coronary artery disease involving stebbins coronary artery of stebbins heart without angina pectoris (CMS/HCC) Continue medication and follow with cardiology. Heart failure with improved ejection fraction (HFimpEF) (CMS/HCC) Edema stable and continue medication. documented in this encounter [facility] 06-01-2024 Note [facility] - [facility] Heart and Vascular Center Asher [...] Patient Active Problem List Diagnosis Prostate cancer ([facility]) Cerebrovascular accident (CVA) ([facility] [place]) History of diabetes mellitus History of DVT (deep vein thrombosis) History of hypertension History of ischemic left MCA stroke Hypercholesterolemia Hypertension Partial seizure ([facility] [place]) Type 2 diabetes mellitus without complication, with long-term current use of insulin ([facility] [place]) Osteoarthritis of knee Malignant neoplasm of prostate ([facility] [place]) NSTEMI (non-ST elevated myocardial infarction) ([facility] [place]) Chest pain BPH associated with nocturia Essential hypertension, benign Type 2 diabetes mellitus with hyperglycemia ([facility] [place]) Vitamin D deficiency ALLISON on CPAP Acute anemia Chronic systolic heart failure ([facility] [place]) 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 [facility] 05-18-2024 History of Present illness Narrative Associated [...] cardiology. Associated Problem(s): Coronary artery disease involving stebbins coronary artery of stebbins heart without angina pectoris ([facility]CC) Continue medication and follow with cardiology. Images from the original note were not included. Subjective Patient ID: Eunice Marte is a 68 y.o. male who presents for Follow-up ([facility] f/u). Hospital follow up from 05/09-05/11 [...] and continue medication. Coronary artery disease involving stebbins coronary artery of stebbins heart without angina pectoris ([facility]/HCC) Continue medication and follow with cardiology. Single subsegmental pulmonary embolism without acute cor pulmonale ([facility]/HCC) - Primary Recent PE and continue Eliquis. Prior DVT years ago and need life long anticoagulation. Pneumonia of right lower lobe due to infectious organism Recent pneumonia and complete levaquin. NSTEMI (non-ST elevated myocardial infarction) (CMS/HCC) Recent admission and cath in February normal. Continue medication and follow with cardiology. documented in this encounter [facility] 05-02-2024 History of Present illness [...] PRN. Associated Problem(s): Coronary artery disease involving stebbins coronary artery of stebbins heart without angina pectoris (CMS/HCC) Add ozempic [...] Items Addressed This Visit Essential hypertension, benign ([facility] [place]) BP elevated but previously controlled and monitor PRN. Type 2 diabetes mellitus with hyperglycemia ([facility] [place]) BS stable and add ozempic. Relevant Medications semaglutide (Ozempic, 0.25 or 0.5 MG/DOSE,) 2 MG/1.5ML solution pen-injector Coronary artery disease involving stebbins coronary artery of stebbins heart without angina pectoris ([facility] [place]) Add ozempic and follow with cardiology. Heart failure with improved ejection fraction (HFimpEF) ([facility] [place]) - Primary Worsening edema and start lasix. [...] q-tips inside ear. documented in this encounter [facility] 04-17-2024 Note Specialty Pharmacy N [place]: [facility] Supervising Physician & Clinic:?? Vivian Billy NP; cardiology Euince Marte is a 68 y.o. year old male patient with PMH of: Past Medical History: Diagnosis Date Asthma BPH (benign prostatic hyperplasia) CAD (coronary artery disease) CKD (chronic kidney disease), stage III ([facility] [place]) Depression DM (diabetes mellitus) [place] 2007 Type II Erectile dysfunction GERD (gastroesophageal reflux disease) H/O deep venous thrombosis HLD (hyperlipidemia) HTN (hypertension) Myocardial infarction ([facility] 2021 ALLISON on CPAP Prostate cancer ([facility]) Status post placement of implantable loop recorder Stroke ([facility] 04/2015 right sided weakness Patient Active Problem List Diagnosis Prostate cancer ([facility]) Cerebrovascular accident (CVA) ([facility]) History of diabetes mellitus History of DVT (deep vein thrombosis) History of hypertension History of ischemic left MCA stroke Hypercholesterolemia Hypertension Partial seizure ([facility]) Type 2 diabetes mellitus without complication, with long-term current use of insulin ([facility]) Osteoarthritis of knee Malignant neoplasm of prostate ([facility]) NSTEMI (non-ST elevated myocardial infarction) ([facility]) Chest pain BPH associated with nocturia Essential hypertension, benign Type 2 diabetes mellitus with hyperglycemia ([facility]) Vitamin D deficiency ALLISON on CPAP Acute anemia Chronic systolic heart failure ([facility]) 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 Jacky NievesD, BCACP 04/17/24 2:13 PM [facility] [phone] [facility] 04-17-2024 Note I called the patient and he received the medication and does not have any questions at this time. Antoinette Gan CPhT [facility] 05/01/24 2:05 PM [facility] 04-17-2024 Note Received paper copy [...] July Rankin PharmD, JEFFREY 04/24/24 11:31 AM [facility] [phone] [facility] 04-17-2024 Note Prior Authorization for Repatha has been denied on 04/20/24. Due to the Lipid panel on 03/15/24 being normal, Will fax appeal with LPA and ASCVD-related documents. Contacted prescriber and was told that due to the ASCVD history the goal for the LDL is actually <55, making him a candidate for the medication. Follow up on 04/26/24. Rajiv Lora, Porcelain Enameler [facility], [id number] 04/24/24 10:31 AM [facility] 04-17-2024 Note PA still in process, follow up on 04/23 for PA status. Rajiv Lora, [employer] [facility], [id number] 04/19/24 11:16 AM [facility] 04-17-2024 Note New script for Repat wilhelm received to treat E78.2, I25.10 mixed hyperlipidemia and Atherosclerotic heart disease. PA required? Yes Routed to [facility] for initial workup. Reddy Barnard, [facility] 04/17/24 at 11:40 AM [facility] 04-17-2024 Note Called to try to do amjc-fx-uwrs and it was approved for a year. Medication must be filled at [facility] specialty pharmacy. Will ask Rx to be sent there and follow-up to make sure the patient receives it. July Rankin PharmD, JEFFREY 04/25/24 3:05 PM [facility] [phone] [facility] 04-17-2024 Note PA was submitted via CM, waiting on a determination. Antoinette Gan, [facility] 04/17/24 3:38 PM [facility] 04-17-2024 Note PharmD Consult - PCS K9i Provider: Vivian Billy Department: Cardiology [facility] is a 68 y.o. male with PMH [...] LDL, Apo-B, and Lp(a). Rx sent to [facility] to determine coverage and provide education to patient. Irasema White, PharmD, PGY1 Body Work Auto Trimmer [facility] 04/17/24 [facility] 02-02-2023 Hospital Discharge instructions Patient Education [...] under a microscope. This is called the Elbe score and the total score can range from 6 10, indicating how likely it is that the cancer will spread (metastasize) to other parts of the body. The higher the score, the greater the likelihood that the cancer will spread. Elbe 6 or lower: This indicates that the cancer cells look similar to normal prostate cells (well differentiated). Elbe 7: This indicates that the cancer cells [...] stress of having cancer. General instructions Take mbzp-vhn-wcjrrrp and prescription medicines only as told by your health care provider. If you have to go to the hospital, notify your cancer specialist (oncologist). Keep all follow-up visits. This is important. Where to find more information [place] [employer]: www.cancer.org [place] [employer] On[employer]: www.cancer.net National Cancer [place]: www.cancer.gov Contact a health care provider if: [...] provider. Document Revised: 11/04/2021 Document Reviewed: 11/04/2021 [facility] Patient Education 2022 [employer] Follow Up Care 11/03/2022 08:38:11 With:Dewey COTTO, ARIAN Alegria, URO Address: When: Unknown [facility] 11-03-2022 Hospital Discharge instructions Patient Education [...] who: Are older than age 65. Are -[place]. Are obese. Have a family history of [...] cells. Follow these instructions at home: Take sikq-eqy-rmsrzpr and prescription medicines only as told by [...] 08/08/2006 Document Revised: 07/21/2018 Document Reviewed: 04/18/2017 [facility] Patient Education 2020 [employer] Follow Up Care 10/06/2022 08:46:11 With:Dewey COTTO, ARIAN Alegria, URO Address: When: Unknown [facility] 10-06-2022 Hospital Discharge instructions Patient Education 10/06/2022 [...] 07/25/2013 Document Revised: 03/28/2019 Document Reviewed: 03/28/2019 [facility] Patient Education 2020 [employer] 10/06/2022 08:07:38 Brachytherapy for Prostate Cancer Brachytherapy [...] including vitamins, herbs, eye drops, creams, and sncx-dde-cxduxzb medicines. Any problems you or family members [...] 01/16/2007 Document Revised: 07/21/2018 Document Reviewed: 08/17/2017 [facility] Patient Education 2020 [employer] 10/06/2022 08:07:36 Laparoscopic Prostatectomy Laparoscopic Prostatectomy Laparoscopic [...] including vitamins, herbs, eye drops, creams, and logo-eyk-jpnhhxs medicines. Any problems you or family members [...] 08/08/2006 Document Revised: 07/21/2018 Document Reviewed: 07/25/2017 [facility] Patient Education 2020 [employer] 10/06/2022 07:50:11 Prostate Cancer Prostate Cancer The [...] who: Are older than age 65. Are -[place]. Are obese. Have a family history of [...] cells. Follow these instructions at home: Take ebwi-sql-tznveap and prescription medicines only as told by [...] 08/08/2006 Document Revised: 07/21/2018 Document Reviewed: 04/18/2017 [employer] Patient Education 2020 [employer] Follow Up Care 08/04/2022 10:29:21 With:Milvia Palomo MD, URL, URO Address: When: Unknown [facility] 08-04-2022 Hospital Discharge instructions Patient Education 08/04/2022 [...] including vitamins, herbs, eye drops, creams, and bqqh-vmw-psnvvan medicines. Any problems you or family members [...] 01/16/2007 Document Revised: 07/21/2018 Document Reviewed: 08/17/2017 [facility] Patient Education 2020 [employer] Follow Up Care 06/02/2022 10:42:40 With:Dewey COTTO, ARIAN Alegria, URO Address: When:1 month Comments:Discuss PSMA PET scan & treatment options [facility] 07-21-2022 Note OPERATIVE NOTE OPERATION DATE: [...] in good condition. CC: Adilson Salazar M.D. [facility] 07-06-2022 Hospital Discharge instructions Patient Education [...] for your post-operative appointment in 1-2 weeks [phone] or [phone] Follow Up Care 06/02/2022 10:25:59 With:Milvia Palomo Address: [address] [place] [address]- [phone] Business (1) [address], [address] [address]- [phone] Business (1) When: Unknown Comments:Office to followup appointment in 2 weeks for pathology review [facility] 07-06-2022 Evaluation + Plan note Extrac shelby from: Title:Post-anesthesia - General Author:Scout Dumont DO Date:07/06/22 Plan Transfer/ Discharge: Condition stable. Extracted from: Title:EU - MRI fusion transp erineal prostate biopsy Author:Milvia Palomo MD Date:07/06/22 Impression and Plan Diagnosis Elevated PSA ([id number] R97.20, Discharge, Medical). Diagnosis Elevated PSA ([id number]-FK R97.20, Discharge, Medical). Counseled: Patient, Family. Extracted from: Title:Pre-anesthesia - Adult Author:Scout Lamas Jr., DO Date:07/06/22 Plan [place] [employer] Anesthesiologists (ASA) physical status classification: Class III. Anesthetic Preoperative Plan Anesthesia: Monitored anesthesia care. Anesthetic plan, risks, benefits, and alternatives discussed with the patient and/or family. Patient verbalized understanding. Adverse reactions, complications, and alternatives discujssed. Consent signed and on chart.. Future Appointments Appointment Date:07/21/2022 09:30:00 AM Scheduled Provider:Milvia Palomo MD Location:[facility] Appointment Type:URO Office Visit Appointment Date:10/12/2022 10:30:00 AM Scheduled Provider:Ciro Blanco MD, Asim Singleton Location:[facility] Appointment Type:URO Office Visit [facility]11-14-2022 Note [id number]:127[facility] 06-25-2022 NoteChief Complaint consultation for LLQ [...] mL, NEB, BID c (more content not included)...[facility] Comment: Electronically Signed By: BASIL COTTO, Curtis Monzon\Date and Time Signed: 06/25/22 15:55 [id number] Note [id number]:127[facility] 06-02-2022 Hospital Discharge instructions Patient Education 06/02/2022 [...] Follow these instructions at home: Medicines Take rscq-zlh-ufrznbi and prescription medicines only as told by [...] 08/05/2001 Document Revised: 07/21/2018 Document Reviewed: 08/24/2017 [facility] Patient Education 2020 [employer] Follow Up Care 04/21/2022 12:43:56 With:Dewey COTTO, ARIAN Alegria, URO Address: [address], [facility] [place] [address] [phone] When: Unknown [facility] [place] 08-31-2022 Hospital Discharge instructions Patient Education 04/21/2022 [...] have oneof these risk factors: ?Being of -[place] descent. ?Having a family history of prostate [...] you: Are older than age 55. Are -[place]. Have a father, brother, or uncle who [...] 05/19/2018 Document Revised: 07/21/2018 Document Reviewed: 05/19/2018 [facility] Patient Education 2020 [employer] Follow Up Care 03/08/2022 11:37:35 With:Dewey COTTO, Milvia Lucia, UR, URO Address: When: Unknown [facility] evaluation + Plan note Future Appointments Appointment Date:05/12/2022 10:45:00 AM Scheduled Provider:Milvia Palomo MD Location:[facility] Appointment Type:URO Office Visit Appointment Date:10/12/2022 10:30:00 AM Scheduled Provider:Asim Tanner Jr., MD Location:[facility] Appointment Type:URO Office Visit [facility] evaluation + Plan note Future Appointments Appointment Date:06/29/2022 03:30:00 PM Scheduled Provider: Location:[facility] Appointment Type:Surgical PAT FT Appointment Date:07/06/2022 01:30:00 PM Scheduled Provider: Location:[facility] Appointment Type:Surgery FT Appointment Date:07/21/2022 09:30:00 AM Scheduled Provider:Milvia Palomo MD Location:[facility] Appointment Type:URO Office Visit Appointment Date:10/12/2022 10:30:00 AM Scheduled Provider:Asim Tanner Jr., MD Location:[facility] Appointment Type:URO Office Visit [facility] evaluation + Plan note Future Appointments Appointment Date:06/29/2022 03:00:00 PM Scheduled Provider: Location:[facility] Appointment Type:Surgery PAT COVID Testing Appointment Date:06/29/2022 03:30:00 PM Scheduled Provider: Location:[facility] Appointment Type:Surgical PAT FT Appointment Date:07/06/2022 01:30:00 PM Scheduled Provider: Location:[facility] Appointment Type:Surgery FT Appointment Date:07/21/2022 09:30:00 AM Scheduled Provider:Milvia Palomo MD Location:[facility] Appointment Type:URO Office Visit Appointment Date:10/12/2022 10:30:00 AM Scheduled Provider:Asim Tanner Jr., MD Location:[facility] Appointment Type:URO Office Visit [facility] [place] Evaluation + Plan note Future Appointments Appointment Date:07/06/2022 01:30:00 PM Scheduled Provider: Location:[facility] Appointment Type:Surgery FT Appointment Date:07/21/2022 09:30:00 AM Scheduled Provider:Milvia Palomo MD Location:[facility] Appointment Type:URO Office Visit Appointment Date:10/12/2022 10:30:00 AM Scheduled Provider:Asim Tanner Jr., MD Location:[facility] Appointment Type[facility] Future Appointments Appointment Date:09/15/2022 10:30:00 AM Scheduled Provider:Milvia Palomo MD Location:[facility] Appointment Type:URO Office Visit [facility] evaluation + Plan note Future Appointments Appointment Date:10/06/2022 07:45:00 AM Scheduled Provider:Milvia Palomo MD Location:[facility] Appointment Type:[facility]O [facility] Future Appointments Appointment Date:11/03/2022 10:10:00 AM Scheduled Provider:Milvia Palomo MD Location:[facility] Appointment Type:URO Office Visit Diagnostic Tests Pending * PSA Free & Total 10/06/22 [facility] evaluation + Plan note Future Appointments Appointment Date:02/02/2023 10:15:00 AM Scheduled Provider:Milvia Palomo MD Location:[facility] Appointment Type:URO Office Visit [facility] evaluation noteNo assessment information available [facility] Work Phone: Evaluation note* Diagnosis Type 2 diabetes mellitus with hyperglycemia, with long-term current use of insulin (CMS/HCC) documented in this encounter [facility] HealthcareEvaluation note* Diagnosis Type 2 diabetes mellitus with hyperglycemia, with long-term current use of insulin (CMS/HCC)- Primary Essential hypertension, benign (CMS/HCC) Essential hypertension, benign Type 2 diabetes mellitus with hyperglycemia, with long-term current use of insulin (CMS/HCC)- Primary Essential hypertension, benign (CMS/HCC) Essential hypertension, benign FPC (current) use of insulin (Z79.4) Prostatic cancer (CMS/HCC) Malignant neoplasm of prostate Type 2 diabetes mellitus with hyperglycemia, with long-term current use of insulin (CMS/HCC)- Primary Essential hypertension, benign (CMS/HCC) Essential hypertension, benign Gastroesophageal reflux disease without esophagitis Esophageal reflux Prostatic cancer (CMS/HCC) Malignant neoplasm of prostate Coronary artery disease involving stebbins coronary artery of stebbins heart without angina pectoris (CMS/HCC)- Primary Type 2 diabetes mellitus with hyperglycemia, with long-term current use of insulin (CMS/HCC) Essential hypertension, benign (CMS/HCC) Essential hypertension, benign Heart failure with improved ejection fraction (HFimpEF) (CMS/HCC)- Primary Type 2 diabetes mellitus with hyperglycemia, with long-term current use of insulin (CMS/HCC) Coronary artery disease involving stebbins coronary artery of stebbins heart without angina pectoris (CMS/HCC) Essential hypertension, benign (CMS/HCC) Essential hypertension, benign Bilateral impacted cerumen Impacted cerumen Single subsegmental pulmonary embolism without acute cor pulmonale (CMS/HCC)- Primary Pneumonia of right lower lobe due to infectious organism NSTEMI (non-ST elevated myocardial infarction) (CMS/HCC) Acute myocardial infarction, subendocardial infarction, episode of care unspecified Coronary artery disease involving stebbins coronary artery of stebbins heart without angina pectoris (CMS/HCC) Type 2 diabetes mellitus with hyperglycemia, with long-term current use of insulin (CMS/HCC) Type 2 diabetes mellitus with hyperglycemia, with long-term current use of insulin (CMS/HCC)- Primary Essential hypertension, benign (CMS/HCC) Essential hypertension, benign Heart failure with improved ejection fraction (HFimpEF) ([facility]) Coronary artery disease involving stebbins coronary artery of stebbins heart without angina pectoris ([facility]) documented in this encounter [facility]* Diagnosis Heart failure with improved ejection fraction (HFimpEF) (CMS/[facility])- Primary Type 2 diabetes mellitus with hyperglycemia, with long-term current use of insulin ([facility]) Coronary artery disease involving stebbins coronary artery of stebbins heart without angina pectoris ([facility]) Essential hypertension, benign ([facility]) Essential hypertension, benign Bilateral impacted cerumen Impacted cerumen documented in this encounter [facility] HealthcareEvaluation note* Diagnosis Single subsegmental pulmonary embolism without acute cor pulmonale ([facility])- Primary Pneumonia of right lower lobe due to infectious organism NSTEMI (non-ST elevated myocardial infarction) ([facility]) Acute myocardial infarction, subendocardial infarction, episode of care unspecified Coronary artery disease involving stebbins coronary artery of stebbins heart without angina pectoris ([facility]) Type 2 diabetes mellitus with hyperglycemia, with long-term current use of insulin ([facility]) documented in this encounter [facility] HealthcareEvaluation note* Diagnosis Type 2 diabetes mellitus with hyperglycemia, with long-term current use of insulin ([facility])- Primary Essential hypertension, benign ([facility]) Essential hypertension, benign Type 2 diabetes mellitus with hyperglycemia, with long-term current use of insulin ([facility])- Primary Essential hypertension, benign ([facility]) Essential hypertension, benign FPC (current) use of insulin (Z79.4) Prostatic cancer ([facility]) Malignant neoplasm of prostate Type 2 diabetes mellitus with hyperglycemia, with long-term current use of insulin ([facility])- Primary Essential hypertension, benign ([facility]) Essential hypertension, benign Gastroesophageal reflux disease without esophagitis Esophageal reflux Prostatic cancer ([facility]) Malignant neoplasm of prostate Coronary artery disease involving stebbins coronary artery of stebbins heart without angina pectoris ([facility])- Primary Type 2 diabetes mellitus with hyperglycemia, with long-term current use of insulin ([facility]) Essential hypertension, benign ([facility]) Essential hypertension, benign Heart failure with improved ejection fraction (HFimpEF) ([facility])- Primary Type 2 diabetes mellitus with hyperglycemia, with long-term current use of insulin ([facility]) Coronary artery disease involving stebbins coronary artery of stebbins heart without angina pectoris ([facility]) Essential hypertension, benign (CMS/HCC) Essential hypertension, benign Bilateral impacted cerumen Impacted cerumen Single subsegmental pulmonary embolism without acute cor pulmonale ([facility]/HCC)- Primary Pneumonia of right lower lobe due to infectious organism NSTEMI (non-ST elevated myocardial infarction) ([facility]) Acute myocardial infarction, subendocardial infarction, episode of care unspecified Coronary artery disease involving stebbins coronary artery of stebbins heart without angina pectoris ([facility]) Type 2 diabetes mellitus with hyperglycemia, with long-term current use of insulin ([facility]) Type 2 diabetes mellitus with hyperglycemia, with long-term current use of insulin ([facility])- Primary Essential hypertension, benign (CMS/[facility]) Essential hypertension, benign Heart failure with improved ejection fraction (HFimpEF) ([facility]) Coronary artery disease involving stebbins coronary artery of stebbins heart without angina pectoris ([facility]) Type 2 diabetes mellitus with hyperglycemia, with long-term current use of insulin ([facility])- Primary Diverticulitis Diverticulitis of colon (without mention of hemorrhage) Essential hypertension, benign (CMS/HCC) Essential hypertension, benign Prostatic cancer ([facility]/HCC) Malignant neoplasm of prostate Multi-infarct dementia, uncomplicated (CMS/[facility]) Vascular dementia, uncomplicated Heart failure with improved ejection fraction (HFimpEF) ([facility]) documented in [facility] encounter [facility]* Diagnosis Type 2 diabetes mellitus with hyperglycemia, with long-term current use of insulin ([facility])- Primary Essential hypertension, benign (CMS/HCC) Essential hypertension, benign Type 2 diabetes mellitus with hyperglycemia, with long-term current use of insulin ([facility])- Primary Essential hypertension, benign (CMS/HCC) Essential hypertension, benign 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 (Z79.4) Prostatic cancer ([facility]) Malignant neoplasm of prostate Type 2 diabetes mellitus with hyperglycemia, with long-term current use of insulin ([facility]/HCC)- Primary Essential hypertension, benign (CMS/HCC) Essential hypertension, benign Gastroesophageal reflux disease without esophagitis Esophageal reflux Prostatic cancer (CMS/HCC) Malignant neoplasm of prostate Coronary artery disease involving stebbins coronary artery of stebbins heart without angina pectoris ([facility])- Primary Type 2 diabetes mellitus with hyperglycemia, with long-term current use of insulin ([facility]) Essential hypertension, benign (CMS/HCC) Essential hypertension, benign Heart failure with improved ejection fraction (HFimpEF) (CMS/HCC)- Primary Type 2 diabetes mellitus with hyperglycemia, with long-term current use of insulin ([facility]) Coronary artery disease involving stebbins coronary artery of stebbins heart without angina pectoris (CMS/HCC) Essential hypertension, benign (CMS/HCC) Essential hypertension, benign Bilateral impacted cerumen Impacted cerumen Single subsegmental pulmonary embolism without acute cor pulmonale ([facility]/HCC)- Primary Pneumonia of right lower lobe due to infectious organism NSTEMI (non-ST elevated myocardial infarction) ([facility]) Acute myocardial infarction, subendocardial infarction, episode of care unspecified Coronary artery disease involving stebbins coronary artery of stebbins heart without angina pectoris ([facility]) Type 2 diabetes mellitus with hyperglycemia, with long-term current use of insulin ([facility]) Type 2 diabetes mellitus with hyperglycemia, with long-term current use of insulin ([facility])- Primary Essential hypertension, benign (CMS/HCC) Essential hypertension, benign Heart failure with improved ejection fraction (HFimpEF) ([facility]/HCC) Coronary artery disease involving stebbins coronary artery of stebbins heart without angina pectoris ([facility]) Type 2 diabetes mellitus with hyperglycemia, with long-term current use of insulin ([facility])- Primary Diverticulitis Diverticulitis of colon (without mention of hemorrhage) Essential hypertension, benign (CMS/HCC) Essential hypertension, benign Prostatic cancer ([facility]) Malignant neoplasm of prostate Multi-infarct dementia, uncomplicated ([facility]) Vascular dementia, uncomplicated Heart failure with improved ejection fraction (HFimpEF) ([facility]) Essential hypertension, benign ([facility]/HCC)- Primary Essential hypertension, benign Type 2 diabetes mellitus with hyperglycemia, with long-term current use of insulin ([facility]) Heart failure with improved ejection fraction (HFimpEF) ([facility]) Coronary artery disease involving stebbins coronary artery of stebbins heart without angina pectoris ([facility]) Acute non-recurrent pansinusitis documented in this encounter [facility]* Diagnosis Type 2 diabetes mellitus with hyperglycemia, with long-term current use of insulin ([facility])- Primary Essential hypertension, benign Essential hypertension, benign Type 2 diabetes mellitus with hyperglycemia, with long-term current use of insulin (HCC)- Primary Essential hypertension, benign Essential hypertension, benign 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 (Z79.4) Prostatic cancer (HCC) Malignant neoplasm of prostate Type 2 diabetes mellitus with hyperglycemia, with long-term current use of insulin (HCC)- Primary Essential hypertension, benign Essential hypertension, benign Gastroesophageal reflux disease without esophagitis Esophageal reflux Prostatic cancer (HCC) Malignant neoplasm of prostate Coronary artery disease involving stebbins coronary artery of stebbins heart without angina pectoris- Primary Type 2 diabetes mellitus with hyperglycemia, with long-term current use of insulin (HCC) Essential hypertension, benign Essential hypertension, benign Heart failure with improved ejection fraction (HFimpEF) (HCC)- Primary Type 2 diabetes mellitus with hyperglycemia, with long-term current use of insulin (HCC) Coronary artery disease involving stebbins coronary artery of stebbins heart without angina pectoris Essential hypertension, benign Essential hypertension, benign Bilateral impacted cerumen Impacted cerumen Single subsegmental pulmonary embolism without acute cor pulmonale ([facility])- Primary Pneumonia of right lower lobe due to infectious organism NSTEMI (non-ST elevated myocardial infarction) ([facility]) Acute myocardial infarction, subendocardial infarction, episode of care unspecified Coronary artery disease involving stebbins coronary artery of stebbins heart without angina pectoris Type 2 diabetes mellitus with hyperglycemia, with long-term current use of insulin ([facility]) Type 2 diabetes mellitus with hyperglycemia, with long-term current use of insulin (HCC)- Primary Essential hypertension, benign Essential hypertension, benign Heart failure with improved ejection fraction (HFimpEF) (HCC) Coronary artery disease involving stebbins coronary artery of stebbins heart without angina pectoris Type 2 diabetes [...] fraction (HFimpEF) (HCC) Coronary artery disease involving stebbins coronary artery of stebbins heart without angina pectoris Acute non-recurrent pansinusitis Type 2 diabetes mellitus with hyperglycemia, with long-term current use of insulin (HCC)- Primary Essential hypertension, benign Essential hypertension, benign Mild persistent asthma without complication (HCC) Heart failure with improved ejection fraction (HFimpEF) (HCC) Coronary artery disease involving stebbins coronary artery of stebbins heart without angina pectoris [facility] Narrative No data available for this section [facility] Hospital Discharge instructions No data available for this section General Surgery [place] Progress note No data available for this section [facility] Discharge Instructions * Discharge Instr - [...] Extended Emergency Contact Information Primary Emergency Contact: [facility] Relation: Spouse Forging Operator needed? No Past Surgical History: No past [...] MENTAL STATUS:} IV Access: { JOSIE IV ACCESS:023877452} Nursing Mobility/ADLs: Walking {CHP DME ADLs:932429542} Transfer {CHP DME ADLs:239464673} Bathing {CHP DME ADLs:284367522} Dressing {CHP DME ADLs:865716841} Toileting {CHP DME ADLs:153290366} Feeding {CHP DME ADLs:803638824} Tipple Tender {CHP DME ADLs:696770639} Med Delivery { JOSIE MED Delivery:639529260} Wound Care Documentation and Therapy: Elimination: Continence: Bowel: {YES / NO:} Bladder: {YES / NO:} Urinary Catheter: {Urinary Catheter:844197542} Colostomy/Ileostomy/Ileal Conduit: {YES / NO:} Date of Last BM: Intake/Output Summary (Last 24 hours) at 06/08/2019 1738 Last data filed at 06/08/2019 1600 Gross per 24 hour Intake Output 950 ml Net -950 ml I/O last 3 completed shifts: In: - Out: 950 [Urine:950] Safety Concerns: { JOSIE Safety Concerns:154066202} Impairments/Disabilities: { JOSIE Impairments/Disabilities:303536441} Nutrition Therapy: Current Nutrition Therapy: { JOSIE Diet List:315928699} Routes of Feeding: {CHP DME Other Feedings:061912202} Liquids: {Groundskeeper Supervisor liquid thickness:81553} Daily Fluid Restriction: {CHP DME Yes amt example:134934090} Last Modified Barium Swallow with Video (Video Swallowing Test): {Done Not Done Date:} Treatments at the Time of Hospital Discharge: Respiratory Treatments: Oxygen Therapy: {Therapy; copd oxygen:51740} Ventilator: { CC Vent List:094130592} Rehab Therapies: {THERAPEUTIC INTERVENTION:3938355076} Weight Bearing Status/Restrictions: { CC Weight Bearin} Other Medical Equipment (for information only, NOT a DME order): {EQUIPMENT:618469007} Other Treatments: Patient's personal belongings (please select all that are sent with patient): {CHP DME Belongings:443306221} RN SIGNATURE: {Esignature:492247157} CASE MANAGEMENT/SOCIAL WORK SECTION Inpatient Status Date: 06/05/2019 Readmission Risk Assessment Score: Readmission Risk Risk of Unplanned Readmission: 13 Discharging to Facility/ Agency [facility]: [facility] Address: Fax: Dialysis Facility (if applicable) Name: Address: Dialysis Schedule: Phone: Fax: Groover Operator/Title Insurance Sales Representative signature: at2:35 PM PHYSICIAN SECTION Prognosis: Good [...] PM EDT CLINICAL PHARMACY NOTE: MEDS TO [facility] Select Patient?: No Total # of [...] 06/08/2019 2:39 PM EDT Physical Therapy Facility/Department: [address] Daily Treatment Note NAME: Eunice Marte [...] Type 2 Diabetes _x__ Be safe with [place] teaching sheet / [facility] Disposal of Household Generated Sharps _x__ Type 2 Diabetes and Adding Insulin fold out with survival skills Contact number provided. Patient stated willing to follow up for outpatient DMED / work with RD forbetter meal planing. Refer to Patient Education activity for more details. LUCRECIA CADE RN CDE * Keysha Urena SLP - 06/08/2019 11:58 AM EDT Speech Language Pathology Speech Language Pathology [facility] Cognitive Treatment Note Date: 06/08/2019 Patient s Name: Eunice Marte Diagnosis: Patient Active Problem List Diagnosis Code Cerebrovascular accident (CVA) ([facility]) I63.9 Acute left hemiparesis ([facility]) G81.94 History of ischemic left MCA stroke [...] (100%) withmod verbal cues. State the Category ([place]): Pt stated 1/10 (10%) independently, increased to [...] Treatment completed by: Completed by: Erin Andrews, Ceo & Founder Clinician Cosigned By: Keysha Urena M.S.CCC/GAS OPERATOR * Kosta Macedo PTA - 06/08/2019 10:31 AM EDT DATE: 06/08/2019 NAME: Eunice Marte : 1955 Patient not seen this date for Physical Therapy due to: [] Blood transfusion in progress [] Hemodialysis [] Patient Declined [] Spine Precautions [] Strict Bedrest [x] Surgery/ Procedure VL DUP LOWER EXTREMITY VENOUS BILATERAL (Order #[id number]) on 06/08/19 [] Testing [] Other [] [...] Name: Eunice Marte Patient : 1955 Room/Bed: [address] [place] [address] CHIEF COMPLAINT: Complaining of left facial droop, left-sided hemiparesis, slurred speech INTERVAL HISTORY: Admission (06/05/2019) Case of a 63 y.o. male patient with PMH of HTN, Diabetes, Stroke (4 years ago) who came to ED at [place] after having a presentation of acute onset of left- sided weakness that began around 5 PM on June 05, 2019. Patient refers that he was around his house around that area he was feeling weak but then noticed that he was slurring the speech, have a left-sided facial droop, left- sided hemiparesis. At the [place] NIH was calculated at 8 and decision was to give TPA. Patient was life flighted to [place] and was given hydralazine to control his [...] were no complications encountered. Cardiovascular Diseases Fellow [facility] CONSTITUTIONAL: negative for fatigue and malaise [...] please contact Neuro Critical Care Team Vipin Moarles MD Neurology Resident PGY-3 Neuro Critical Care Pager [phone] 06/08/2019 6:04 AM Associated attestation - Omer [...] signs taken. Pt sleepy, but easy to arouse.Curriculum Developer called to let her know procedure was done. * Sherrill Ivan, PAULY - 06/07/2019 3:12 PM EDT Physical Therapy DATE: 06/07/2019 NAME: Eunice Mrate : 1955 Patient not seen this date for Physical Therapy due to: [] Blood transfusion in progress [] Hemodialysis [] Patient Declined [] Spine Precautions [] Strict Bedrest [x] Surgery/ Procedure--senior label specialist this afternoon [] Testing [] Other [] [...] EDT Speech Language Pathology Speech Language Pathology [facility] Speech / Cognitive Treatment Note Date: 06/07/2019 Patient s Name: Eunice Marte Diagnosis: Patient Active Problem List Diagnosis Code Cerebrovascular accident (CVA) ([facility]) I63.9 Acute left hemiparesis ([facility]) G81.94 History of ischemic left MCA stroke Z86.73 History of diabetes mellitus Z86.39 History of hypertension Z86.79 Pain: denies Cognitive Treatment Treatment time: 4644-3917 Subjective: [] Alert [] Cooperative [] Confused [...] x2 verbal repetitions. Organization: State the Category, [place]: Pt provided three items and instructed to state the category. Pt completed activity with 60% (3/5) accuracy independently, increased to 100% (5/5) with mod-max verbal cues and 1-2x verbal repetitions. Add to the Category, [place]: Pt instructed to name three additional items [...] days. Treatment completed by: Frances Schulz M.S. [facility]-GAS OPERATOR * Spike Worthy, DO - 06/07/2019 8:02 AM EDT Daily Progress Note Neuro Critical Care Patient Name: Eunice Marte Patient : 1955 Room/Bed: [facility]/0515- CHIEF COMPLAINT: Complaining of left facial droop, left-sided hemiparesis, slurred speech INTERVAL HISTORY: Admission (06/05/2019) Case of a 63 y.o. male patient with PMH of HTN, Diabetes, Stroke (4 years ago) who came to ED at [place] after having a presentation of acute onset of left- sided weakness that began around 5 PM on June 05, 2019. Patient refers that he was around his house around that area he was feeling weak but then noticed that he was slurring the speech, have a left-sided facial droop, left- sided hemiparesis. At the [place] NIH was calculated at 8 and decision was to give TPA. 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 male presented with acute onset of L sided weakness... He has had TIAs in the past, and states that this felt somewhat similar. He was brought to [place] ED where NIH was calculated to be [...] Ambulation Assistance: Independent Transfer Assistance: Independent Active Frontload Driver: Yes Mode of Transportation: Car Occupation: Retired [...] Strength LUE: WFL Comment: pt c/o decreased retread builder strength for 2-3 days with dropping of [...] Restraints Initially in place: No AM-PAC Score [facility] Inpatient Mobility Raw Score : 19 (06/06/19 1146) [facility] Inpatient T-Scale Score : 45.44 (06/06/19 1146) [...] 10:16 AM EDT Speech Language Pathology Facility/Department: [address] Initial Speech/Language/Cognitive Assessment NAME: Eunice Marte : 1955 ADMISSION DATE: 06/05/2019 ADMITTING DIAGNOSIS: has Stroke determined by clinical assessment ([facility]) on their problem list. Date of Eval: [...] felt somewhat similar. He was brought to [place] ED where NIH was calculated to be [...] address noted deficits. Education provided. Recommendations: Requires GAS OPERATOR Intervention: Yes Duration/Frequency of Treatment: 3-5 [...] 0911 Minutes 13 Completed by: Erin Andrews, Ceo & Founder Clinician Cosigned By: Keysha Urena M.S.CCC/GAS OPERATOR 06/06/2019 10:16 AM * Suellen Allen [...] years ago) who came to ED at [place] after having a presentation of acute onset of left- sided weakness that began around 5 PM on June 05, 2019. Patient refers that he was around his house around that area he was feeling weak but then noticed that he was slurring the speech, have a left-sided facial droop, left- sided hemiparesis. At the [place] NIH was calculated at 8 and decision was to give TPA. Patient was life flighted to [place] and was given hydralazine to control his [...] Neurology Resident PGY-3 Neuro Critical Care Pager [phone] 06/06/2019 5:57 AM Associated attestation - Omer Zambrano MD - 06/06/2019 5:24 PM EDT Patient admitted overnight, staffed this am. H & P from overnight addended. M Sudheer Zambrano MD * Gonzales Camarena MD - 06/05/2019 8:42 PM EDT [facility] [facility] Flight Physician Pt Name:Eunice Marte Birthdate 1955 Date of evaluation: 06/05/19 PCP: Adilson Salazar MD REASON FOR FLIGHT Patient was transported from [place] to [place] due to stroke. Flight was indicated for further care at [facility] HISTORY OF PRESENT ILLNESS Eunice Marte is a 63 y.o. male who acute onset left-sided upper and lower extremity weakness while walking in his yard. Symptoms occurred at approximately 5 PM this afternoon. Patient's is arrived to [place] emergency department where he was found to [...] CRITICAL CARE: None Destination Patient arrived at [place] in stable condition no significant changes in [...] FoundDocuments on File Type Date Recorded Patient Rn Pacu Expl anation Advance Directives and Living Will Power of Doffer Latest Code Status on File Code Status [...] Diagnoses Stroke determined by clinical assessment ([facility]) Oscar Harp MD [address] [place] [id number] [facility] Reason Comments Follow-up 3 m Fatigue No energy Reason Comments Follow-up Edema Hands and feet Shortness of Breath Winded easily Reason Comments Follow-up [facility] f/u Reason Comments hsp follow up Reason Comments Follow-up 3m Cough Reason Comments Follow-up 3m Sinusitis (unrecognized sect ion and content) No Status Records FoundNo Status Records FoundNo Status Records FoundNo Status Records FoundNo Status Records FoundNo Status Records Found INFORMATION SOURCE (unrecogn ized section and content) DATE CREATED AUTHOR 06/19/2019 [facility] DATE CREATED AUTHOR AUTHOR'S ORGANIZ ATION 11/21/2022 [facility] DATE CREATED AUTHOR AUTHOR'S ORGANIZ ATION 03/29/2023 [facility] DATE CREATED AUTHOR AUTHOR'S ORGANIZ ATION 10/07/[address] [facility] DATE CREATED AUTHOR AUTHOR'S ORGANIZ ATION 04/10/2025 [facility] EPIC DATE CREATED AUTHOR AUTHOR'S ORGANIZ ATION 04/15/2025 [facility] Care Team (unrecognized sect ion and content) Team Status: Inactive Member Role Status Dates Adilson Salazar MD Primary Care Provider Active Milvia Palomo MD Attending Provider Active Team Status: Active Member Role Status Dates Adilson Salazar MD Primary Care Provider Active Marketing Recruiter Relationship Specialty Start Date End Date Adilson Salazar MD PCP - General Family Medicine 05/25/23 Marketing Recruiter Relationship Specialty Start Date End Date Adilson Salazar MD PCP - General Family Medicine 05/25/23 Marketing Recruiter Relationship Specialty Start Date End Date Adilson Salazar MD [address] [place] [address] PCP - General Family Medicine 03/28/24 Marketing Recruiter Relationship Specialty Start Date End Date Adilson Salazar MD [address] [place] [address] PCP - General Family Medicine 03/28/24 Marketing Recruiter Relationship Specialty Start Date End Date Adilson Salazar MD [address] [place] [address] PCP - General Family Medicine 03/28/24 Marketing Recruiter Relationship Specialty Start Date End Date Adilson Salazar MD [address] [place] [address] PCP - General Family Medicine 03/28/24 Marketing Recruiter Relationship Specialty Start Date End Date Adilson Salazar MD [address] [place] [address] PCP - General Family Medicine 03/28/24 Marketing Recruiter Relationship Specialty Start Date End Date Adilson Salazar MD [address] [place] [address] PCP - General Family Medicine 03/28/24 Marketing Recruiter Relationship Specialty Start Date End Date Adilson Salazar MD [address] [place] [address] PCP - General Family Medicine 03/28/24 Marketing Recruiter Relationship Specialty Start Date End Date Adilson Salazar MD [address] [place] [address] PCP - General Family Medicine 03/28/24 Adilson Salazar MD [address] [place] [address] PCP - ACO Reach 09/28/24 Marketing Recruiter Relationship Specialty Start Date End Date Adilson Salazar MD [address] [place] [address] PCP - General Family Medicine 03/28/24 Adilson Salazar MD [address] [place] [address] PCP - [facility]CO Reach 09/28/24 Marketing Recruiter Relationship Specialty Start Date End Date Adilson Salazar MD [address] [place] [address] PCP - [facility] Medicine 03/28/24 Adilson Salazar MD [address] [place] [address] PCP - O Reach 09/28/24 Marketing Recruiter Relationship Specialty Start Date End Date Adilson Salazar MD [address] [place] [address] PCP - General [facility] 03/28/24 Adilson Salazar MD [address] [place] [address] PCP - O Reach 09/28/24 Marketing Recruiter Relationship Specialty Start Date End Date Adilson Salazar MD [address] [place] [address] PCP [facility] Medicine 03/28/24 Adilson Salazar MD [address] [place] [address] PCP - ACO Reach 09/28/24 Marketing Recruiter Relationship Specialty Start Date End Date Adilson Salazar MD [address] [place] [address] PCP - General Family Medicine 03/28/24 Marketing Recruiter Relationship Specialty Start Date End Date Adilson Salazar MD [address] [place] [address] PCP - General Family Medicine 03/28/24 [...] BE BASED ON THE PRIMARY CLINICAL RECORDS. [facility]. provides no warranty or guarantee of the accuracy or completeness of information in this document.
[2025-05-17 12:54] LABS: Alanine Aminotransferase 94 U/L (16-63); Albumin Globulin Ratio 1.0; Albumin Level 4.1 g/dL (3.4-5.0); Alkaline Phosphatase 133 U/L (46-116); Aspartate Amino Transferase 30 U/L (15-37); Cholesterol 145 mg/dL (<=200); Globulin 4.1 g/dL; HDL Cholesterol 51 mg/dL (40-60); Total Protein 8.2 g/dL (6.4-8.2); Triglycerides 111 mg/dL (<=150); VLDL CHOLESTEROL 22.2 mg/dL
== END 2025-05-17 11:51 | disposition home or self-care (01) ==
LOC: LAB 11:53
PROVIDERS: PCP Family Medicine; Visit Provider Internal Medicine Interventional Cardiology
DX: E78.2 Mixed hyperlipidemia (principal)
CPT/HCPCS: 36415; 80061; 80076